=== PATIENT | female | born 1990 | race Caucasian/White ===

== ENCOUNTER 2023-01-16 18:05 | Emergency (ER) | payer OTHER, SELFPAY ==
[2023-01-16 18:13] VITALS: BP 126/84; PULSE 78; RESP 20; TEMP 37; O2SAT 98; BMI 27.4
--- NOTE | 2023-01-16 18:33 | ECG_ITS ---
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
[2023-01-16 19:09] LABS: Basophils Percent Auto 0.4 % (0.2-2.0); Eosinophils Absolute Auto 0.1 10^3/uL (0.0-0.7); Eosinophils Percent Auto 1.5 % (0.9-7.0); Hematocrit 38.7 % (36.0-48.0); Hemoglobin 13.4 g/dL (12.0-16.0); Lymphocytes Absolute Auto 4.2 10^3/uL (1.2-3.8); Lymphocytes Percent Auto 57.6 % (20.5-60.0); Mean Corpuscular HGB Conc 34.6 g/dL (29.9-35.2); Mean Corpuscular Hemoglobin 34.2 pg (26.7-34.0); Mean Corpuscular Volume 98.7 fL (81.0-99.0); Mean Platelet Volume 9.4 fL (9.5-13.5); Monocytes Absolute Auto 0.5 10^3/uL (0.3-0.8); Monocytes Percent Auto 6.9 % (1.7-12.0); Neutrophils Absolute Auto 2.4 10^3/uL (1.4-6.5); Neutrophils Percent Auto 33.6 % (43.0-75.0); Platelet Count 185 10^3/uL (150-450); Red Blood Count 3.92 10^6/uL (4.20-5.40); White Blood Count 7.2 10^3/uL (4.0-11.0)
[2023-01-16] MEDS: ONDANSETRON PF 4 MG/2 ML VIAL IV (19:15)
[2023-01-16] MEDS: DIAZEPAM 5 MG/ML - 2 ML INJ SYRINGE IV (19:15)
[2023-01-16] MEDS: MULTIVIT INFUSN,ADULT 4,VIT K 10 ML in 0.9 % SODIUM CHLORIDE 1,000 ML 125 ML IV (19:15)
[2023-01-16 19:21] LABS: Bilirubin Urine NEGATIVE (NEGATIVE); Blood Urine NEGATIVE (NEGATIVE); Clarity Urine CLEAR (CLEAR); Color Urine LT. YELLOW (YELLOW); Glucose Urine UA NEGATIVE (NEGATIVE); Ketones Urine NEGATIVE (NEGATIVE); Leukocyte Esterase Urine NEGATIVE (NEGATIVE); Nitrite Urine NEGATIVE (NEGATIVE); Protein Urine NEGATIVE (NEG/TRACE); Urobilinogen Urine 0.2 EU/dL (0.2-1.0); pH Urine 7.5 (5.0-9.0)
[2023-01-16 19:24] LABS: Urine Microscopic Indicated NO
[2023-01-16 19:32] LABS: Amphetamine Screen Urine NEGATIVE (NEGATIVE); Barbiturates Screen Urine NEGATIVE (NEGATIVE); Benzodiazepines Screen Urine POSITIVE (NEGATIVE); Buprenorphine Screen Urine POSITIVE (NEGATIVE); Cannabinoid Screen Urine NEGATIVE (NEGATIVE); Cocaine Screen Urine NEGATIVE (NEGATIVE); Methadone Screen Urine NEGATIVE (NEGATIVE); Methamphetamines Screen Urine NEGATIVE (NEGATIVE); Opiate Screen Urine NEGATIVE (NEGATIVE); Oxycodone Screen Urine NEGATIVE (NEGATIVE); Phencyclidine Screen Urine NEGATIVE (NEGATIVE); Tricyclic Antidepressant Urine NEGATIVE (NEGATIVE)
[2023-01-16 19:34] LABS: Alanine Aminotransferase 134 U/L (14-59); Albumin Globulin Ratio 0.9; Albumin Level 3.5 g/dL (3.4-5.0); Alkaline Phosphatase 95 U/L (46-116); Anion Gap 12.2; Aspartate Amino Transferase 180 U/L (15-37); BUN Creatinine Ratio 14.8; Bilirubin Total 0.2 mg/dL (0.2-1.0); Calcium 8.3 mg/dL (8.5-10.1); Carbon Dioxide 28.8 mmol/L (21.0-32.0); Chloride 103 mmol/L (98-107); Estimated GFR (African America >60 (>=60); Estimated GFR (Non-African Ame >60 (>=60); Ethanol 325 mg/dL; Globulin 4.1 g/dL; Glucose 88 mg/dL (74-106); Magnesium 2.1 mg/dL (1.8-2.4); Sodium 140 mmol/L (136-145); Total Protein 7.6 g/dL (6.4-8.2)
[2023-01-16 19:40] LABS: Prothrombin Time 11.6 sec (9.0-11.6)
[2023-01-16 19:53] LABS: HCG Qualitative Urine* NEGATIVE (NEGATIVE)
--- NOTE | 2023-01-16 20:01 | ED_ITS ---
HPI - Medical Clearance General Chief complaint: Medical Clearance Stated complaint: mental health Time Seen by Provider: 01/16/23 18:30 Source: patient Mode of arrival: walk-in Limitations: no limitations History of Present Illness HPI Narrative: Patient is a 33-year-old female who presents to the emergency department for the evaluation of alcohol abuse, she states she is seeking inpatient treatment. She states she has been having intermittent withdrawal symptoms over the last several weeks, she was recently seen at multiple other facilities for this. She reports feeling anxious, she has occasional visual hallucinations which she has had with previous alcohol withdrawal in the past. She states she drinks a gallon of vodka a day. Apparently her has recently left her which is contributed to her binge drinking. She has no other focal medical complaints at this time, no concern for . Related Information Allergies Allergy/AdvReac Type Severity Reaction Status Date / Time codeine Allergy Severe Verified 01/16/23 18:22 hydroxyzine [From Vistaril] AdvReac Severe Verified 01/16/23 18:22 Review of Systems ROS Constitutional Denies: fever or chills Ears, nose, mouth, and throat Denies: throat pain Cardiovascular Denies: chest pain Respiratory Denies: shortness of breath Gastrointestinal Reports: nausea and vomiting Musculoskeletal Denies: back pain Integumentary/Breast Denies: rash Psychiatric Reports: anxiety Exam Narrative Exam Narrative: Gen.: Awake, alert, in no distress; calm, cooperative Head: Normocephalic, atraumatic ENT: Moist mucous membranes Respiratory: No respiratory distress, lungs clear bilaterally Cardio: Regular rate and rhythm Gastrointestinal: Abdomen is soft, nondistended and nontender to palpation Extremities: Moves extremities equally, no injuries noted Psych: Normal mood and affect; denies suicidal or homicidal ideation Neuro: No focal neuro deficit Skin: Warm, dry, intact Constitutional Vital Signs, click to edit/add: Last Vital Signs Temp 98.6 F 01/16/23 18:13 Pulse 78 01/16/23 18:13 Resp 20 01/16/23 18:13 BP 126/84 01/16/23 18:13 Pulse Ox 98 01/16/23 18:13 Course Vital Signs Vital signs: Vital Signs Temperature 98.6 F 01/16/23 18:13 Pulse Rate 78 01/16/23 18:13 Respiratory Rate 20 01/16/23 18:13 Blood Pressure 126/84 01/16/23 18:13 Pulse Oximetry 98 01/16/23 18:13 Temperature 98.6 F 01/16/23 18:13 Pulse Rate 78 01/16/23 18:13 Respiratory Rate 20 01/16/23 18:13 Blood Pressure 126/84 01/16/23 18:13 Pulse Oximetry 98 01/16/23 18:13 MDM - Medical Clearance MDM Narrative Medical decision making narrative: Patient is calm and cooperative in the ER, I discussed the case with [facility]'s counseling and patient is not a candidate for direct transfer to an inpatient alcohol facility until she is more sober. Her alcohol level is 325. The remainder of her labs are unremarkable. She was given a banana bag, IV Valium and Zofran. Vital signs were unremarkable in the ER. On discussion of medical admission for the patient, her family member came to the emergency room and the patient states she is ready to leave. Her family member is sober and will drive her home and stay with her. She states she does not feel she needs to be admitted and would like to just go home and sleep. She is awake, alert and appropriate on reevaluation, she has no suicidal or homicidal ideation. Her sober family member will except responsibility for driving her home. She was given counseling resources for follow-up and should return to the ER if symptoms change or worsen. Medical Records Attestation: I reviewed the patient's medical records. Lab Data Attestation: I reviewed the patient's lab results. Labs: Lab Results 01/16/23 01/16/23 Range/Units 19:01 19:11 WBC 7.2 (4.0-11.0) 10^3/uL RBC 3.92 L (4.20-5.40) 10^6/uL Hgb 13.4 (12.0-16.0) g/dL Hct 38.7 (36.0-48.0) % MCV 98.7 (81.0-99.0) fL MCH 34.2 H (26.7-34.0) pg MCHC 34.6 (29.9-35.2) g/dL RDW 12.0 (11.0-15.0) % Plt Count 185 (150-450) 10^3/uL MPV 9.4 L (9.5-13.5) fL Neut % (Auto) 33.6 L (43.0-75.0) % Lymph % (Auto) 57.6 (20.5-60.0) % [place] % (Auto) 6.9 (1.7-12.0) % Eos % (Auto) 1.5 (0.9-7.0) % Baso % (Auto) 0.4 (0.2-2.0) % Neut # (Auto) 2.4 (1.4-6.5) 10^3/uL Lymph # (Auto) 4.2 H (1.2-3.8) 10^3/uL [place] # (Auto) 0.5 (0.3-0.8) 10^3/uL Eos # (Auto) 0.1 (0.0-0.7) 10^3/uL Baso # (Auto) 0.0 (0.0-0.1) 10^3/uL Abs Immat Gran (auto) 0.00 (0.00-0.03) 10^3/uL Imm/Tot Granulo (auto) 0.0 (0.0-0.5) % PT 11.6 (9.0-11.6) sec INR 1.10 Sodium 140 (136-145) mmol/L Potassium 4.0 (3.5-5.1) mmol/L Chloride 103 (98-107) mmol/L Carbon Dioxide 28.8 (21.0-32.0) mmol/L Anion Gap 12.2 BUN 9.0 (7.0-18.0) mg/dL Creatinine 0.61 (0.55-1.02) mg/dL Est GFR ( Amer) >60 (>=60) Est GFR (Non-Af Amer) >60 (>=60) BUN/Creatinine Ratio 14.8 Glucose 88 (74-106) mg/dL Calcium 8.3 L (8.5-10.1) mg/dL Magnesium 2.1 (1.8-2.4) mg/dL Total Bilirubin 0.2 (0.2-1.0) mg/dL AST 180 H (15-37) U/L ALT 134 H (14-59) U/L Alkaline Phosphatase 95 (46-116) U/L Total Protein 7.6 (6.4-8.2) g/dL Albumin 3.5 (3.4-5.0) g/dL Globulin 4.1 g/dL Albumin/Globulin Ratio 0.9 Lipase 81.0 H (16.0-77.0) U/L Urine Color Lt. yellow (YELLOW) Urine Clarity Clear (CLEAR) Urine pH 7.5 (5.0-9.0) Ur Specific [place] 1.010 (1.005-1.025) Urine Protein Negative (NEG/TRACE) mg/dL Urine Glucose (UA) Negative (NEGATIVE) mg/dL Urine Ketones Negative (NEGATIVE) mg/dL Urine Occult Blood Negative (NEGATIVE) Urine Nitrite Negative (NEGATIVE) Urine Bilirubin Negative (NEGATIVE) Urine Urobilinogen 0.2 (0.2-1.0) EU/dL Ur Leukocyte Esterase Negative (NEGATIVE) Urine HCG, Qual Negative (NEGATIVE) Urine Opiates Screen Negative (NEGATIVE) Ur Buprenorphine Scrn Positive A (NEGATIVE) Ur Oxycodone Screen Negative (NEGATIVE) Urine Methadone Screen Negative (NEGATIVE) Ur Barbiturates Screen Negative (NEGATIVE) U Tricyclic Antidepress Negative (NEGATIVE) Ur Phencyclidine Scrn Negative (NEGATIVE) Ur Amphetamines Screen Negative (NEGATIVE) U Methamphetamines Scrn Negative (NEGATIVE) U Benzodiazepines Scrn Positive A (NEGATIVE) Urine Cocaine Screen Negative (NEGATIVE) U Cannabinoids Screen Negative (NEGATIVE) Ethanol Quant 325 mg/dL ECG Data Attestation: I personally reviewed and interpreted this ECG as follows: (Normal sinus rhythm at a rate of 68, no acute ST elevation or ectopy. EKG reviewed by attending physician) Discharge Plan Discharge Chief Complaint: Medical Clearance Clinical Impression: Alcohol intoxication Patient Disposition: Home, Self-Care Time of Disposition Decision: 20:29 Condition: Good Instructions: Abuse of Alcohol (ED) Stand Alone Forms: Portal Instructions [facility] week Physician,Non-Staff, [Primary Care Provider] - 1 week Discharge Date/Time: 01/16/23 20:59
== END 2023-01-16 20:59 | disposition home or self-care (01) ==
PROVIDERS: Physician Assistant; Emergency Provider Emergency Medicine
DX: F10.129 Alcohol abuse with intoxication, unspecified (principal); Y90.8 Blood alcohol level of 240 mg/100 ml or more
CPT/HCPCS: 36415; 80053; 80307; 80320; 81003; 83690; 83735; 84703; 85025; 85610; 93005; 96374; 96375; 99284

== ENCOUNTER 2023-03-05 03:39 | Emergency (ER) | payer OTHER, SELFPAY ==
[2023-03-05 03:42] VITALS: BP 137/82; PULSE 79; RESP 22; TEMP 36.4; O2SAT 99; BMI 28.3
--- OUTSIDE RECORDS SUMMARY | 2023-03-05 03:53 | XMS_ITS | CCD ---
Author Name Unknown Address [address] [place] [address] Organization [facility] Care Team Providers Care Special Projects Manager Name Role Phone JENNY ELVIS Primary Care Unavailable GhjeffarianElvis Primary Care Provider Wolf, Nini Unavailable Unavailable Tavallwaltere Chintan Unavailable Unavailable Wolf, Nini D Unavailable Unavailable Ghazarian Elvis V Unavailable Unavailable Wolf, Nini Unavailable Unavailable Wolf, Nini D Unavailable Unavailable Wolf, Nini Primary Care Provider WOLF, NINI Primary Care Unavailable CRESCENCIO EMANUEL Attending Unavailable Wolf, Nini D Unavailable Unavailable Unavailable Ghtrista Elvis V Unavailable [phone] Wolf, Nini Unavailable Chilo Glover Unavailable Unavailable WOLF, NINI Primary Care Unavailable HERMINIA MCCARTHY Attending Unavailable HERMINIA MCCARTHY Attending Unavailable WOLF, NINI Primary Care Unavailable Misa SINGLETARY, Jeffery Smith Attending Unavailable Jeffery Bynum MD Admitting Unavailable Unavailable Primary Care Provider UnavailZIARE Hay Attending Unavailable MARIA E BLANCAS Referring Unavailable Amanda BARRIOS Primary Care Physician [phone] Michelle Ferrera Unavailable Unavailable REQUEST, NONE LISTED Primary Care Unavaila STEPHENIE Pete Admitting Unavailable STEPHENIE FERNANDEZ Attending Unavailable STEPHENIE FERNANDEZ Consulting Unavailable REQUEST, NONE LISTED Primary Care Unavaila ivy DOOLEY, DR ELIDA Soliman Admitting Unavailable MARCO, DR ELIDA Soliman Attending Unavailable DR ELIDA DOOLEY Consulting Unavailable LOGAN Barrios Primary Care Provider DO Gunnar Moya Emergency Provider [phone] MD Declan Marina Emergency Provider DO Ari Aguero Emergency Provider [phone] Unavailable Primary Care Provider UnavailPHU Ornelas Attending Unavailable DECLAN GOEL Attending Unavailable JOEL ALVES Attending Unavailable MD Eric Dooley Emergency Provider [phone] TAHIR Schmitt Emergency Provider DO Pavel Yao A Emergency Provider LOGAN Barrios Primary Care Provider [phone] DO Gunnar Moya Emergency Provider MD Declan Marina Emergency Provider DO Ari Aguero Emergency Provider MD Eric Dooley Emergency Provider TAHIR Schmitt Emergency Provider DO Pavel Yao A Emergency Provider MD Kanchan Sanchez Attending Provider [phone] Kanchan Sanchez Unavailable LOGAN Barrios Primary Care Provider [phone] DO Ari Aguero Emergency Provider MD Nguyễn Burrows Admit Provider MD Nguyễn Burrows Attending Provider Freda Clarke Unavailable Unavailable LOGAN Barrios Primary Care Provider DO Ari Aguero Emergency Provider MD Declan Marina Emergency Provider LOGAN Barrios Primary Care Provider [phone] MD Kanchan Sanchez Attending Provider Diamante Cleveland Primary Care Physician Birgit COOPER Unavailable LOGAN Barrios Primary Care Provider DO Ari Aguero Emergency Provider Nini Miles Primary Care Provider [phone] LOGAN Barrios Primary Care Provider MD Kanchan Sanchez Attending Provider DO Ari Aguero Emergency Provider [phone] Diamante Cleveland Primary Care Provider TAHIR Schmitt Emergency Provider NINI MCCOLLUM Primary Care Unavailable ROSA ELENA HOWE Attending Unavailabl e LOGAN Barrios Primary Care Provider DO Pavel Yao Emergency Provider MD Samanta Castro Jr Emergency Provider Amanda Barrios Primary Care Unavailable Gautam Burrows Attending Unavailab Gautam Banda Admitting Unavailab Gautam Banda Admitting Unavailab Gautam Banda Attending Unavailab Diamante De León Primary Care Unavailable Ignacio Clevelandca Yung Primary Care Unavailable Braeden Schmitt Admitting Unavailable Braeden Schmitt Attending Unavailable Antwonjulio, Amanda Primary Care Unavailable Ari Aguero Admitting Unavailable Ari Aguero Attending Unavailable Robuck, Amanda Primary Care Unavailable Eric Dooley Attending Unavailable Eric Dooley Admitting Unavailable Braeden Schmitt Attending Unavailable Robjulio, Amanda Primary Care Unavailable Braeden Schmitt Admitting Unavailable Robuck, Amanda Primary Care Unavailable Pavel Yao Attending Unavailable Pavel Yao A Admitting Unavailable Robuck, Amanda Primary Care Unavailable Ari Aguero Attending Unavailable Ari Aguero Admitting Unavailable Declan Marina Admitting Unavailable Declan Marina Attending Unavailable Robuck, Amanda Primary Care Unavailable Robuck, Amanda Primary Care Unavailable Ari Aguero Attending Unavailable Ari Aguero Admitting Unavailable Robuck, Amanda Primary Care Unavailable KePavel phan A Admitting Unavailable KeisterPavel Attending Unavailable Declan Marina Attending Unavailable Robuck, Amanda Primary Care Unavailable Declan Marina Admitting Unavailable Robuck, Amanda Primary Care Unavailable Gunnar Moya Attending Unavailable Gunnar Moya Admitting Unavailable Robjulio, Amanda Primary Care Unavailable Samanta Castro Jr Attending Unavailable Samanta Castro Jr Admitting Unavailable Robuck, Amanda Primary Care Unavailable Ari Aguero Attending Unavailable Ari Aguero Admitting Unavailable Robuck, Amanda Primary Care Unavailable Eric Dooley Admitting Unavailable Eric Dooley Attending Unavailable Asaad, Imad Attending Unavailable Robuck, Amanda Primary Care Unavailable Asaad, Imad Admitting Unavailable Robuck, Amanda Primary Care Unavailable Asaad, Imad Admitting Unavailable Asaad, Imad Attending Unavailable Gunnar HOGAN Admitting Unavailable Endy Raphael Attending Unavailable [place], Francisco Consulting Unavailable [place], Francisco Consulting Unavailable [place], Francisco Consulting Unavailable [place], Francisco Consulting Unavailable [place], Francisco Consulting Unavailable [place], Francisco Consulting Unavailable [place], Francisco Consulting Unavailable [place], Francisco Consulting Unavailable [place], Francisco Consulting Unavailable Gunnar HOGAN Admitting Unavailable Kam Rizzo Attending Unavailable [place], Francisco Consulting Unavailable [place], Francisco Consulting Unavailable [place], Francisco Consulting Unavailable [place], Francisco Consulting Unavailable [place], Francisco Consulting Unavailable [place], Francisco Consulting Unavailable [place], Francisco Consulting Unavailable [place], Francisco Consulting Unavailable [place], Francisco Consulting Unavailable Isai Hall Attending Unavailable Eric Forbes Attending Unavailable Darren Guzman Attending Unavailable Megan, Darren SCharisma Attending Unavailable FABIENNE COOPER Attending Unavaila FABIENNE Craft Admitting Unavaila FREDDY Simmons Attending Unavailable JOANA, FREDDY Lange Attending Unavailable ROBJULIO, FREDDY Lange Attending Unavailable JOANA, FREDDY Lange Attending Unavailable JOANA, FREDDY Lange Attending Unavailable JOANA, FREDDY Lange Attending Unavailable Isai Hall Attending Unavailable Gladys Saini Attending Unavailable CARRIE PEREZ Attending Unavailable Lorie Morocho Attending Unavailable Megan, Darren SCharisma Attending Unavailable FREDDY BARRIOS Attending Unavailable JOANA, FREDDY Lange Attending Unavailable JOANA, FREDDY Lange Attending Unavailable Stanislav FRAIRE Attending Unavailable Eric Forbes Attending Unavailable JEF HEADLEY Attending Unavailable JEF HEADLEY Admitting Unavailable FRANTZ SIMMONS Attending Unavailable FRANTZ SIMMONS Admitting Unavailable Bailee, Lorie Admitting Unavailable Bailee, Lorie Attending Unavailable CARRIE PEREZ Attending Unavailable CARRIE PEREZ Admitting Unavailable Griffin Gunnar Underwood Emergency Provider [phone] Allergies Allergy Classification Reported Allergen(s) Allergy Type Date of Onset Reaction(s) Facility Opioid Agonists (2 sources) Codeine; Translations: [codeine] Drug Allergy Rash, Tachycardia [facility] [address] [facility] Work Phone: QUEtiapine (1 source) QUEtiapine; Translations: [SEROquel TABS] Drug Allergy Swelling [facility] [address] [facility] Work Phone: (9 sources) Bisacodyl Drug Allergy 7 Other (See Comments) [place], [place] (20 sources) Codeine; Translations: [codeine] Drug Allergy 7 Hives, Palpitations, Rash, Tachycardia, Red color (finding) [place], [place] (20 sources) QUEtiapine; Translations: [quetiapine] Drug Allergy 1 [facility] Work Phone: (1 source) Codeine Drug Allergy 7 [facility] (1 source) Docusate Drug Allergy 7 [facility] (2 sources) QUEtiapine; Translations: [SEROquel] Drug Allergy [facility] (19 sources) QUEtiapine; Translations: [quetiapine] Drug Allergy 3 Swelling [facility] (7 sources) hydrOXYzine; Translations: [hydroxyzine] Drug Allergy 3 Palpitations, Anxiety [facility] (1 source) Codeine Drug Allergy 3 [facility] (1 source) hydrOXYzine Drug Allergy 3 [facility] (1 source) Docusate; Translations: [Colace] Drug Allergy [facility] Repository Medications Current Medications Medication Drug Class(es) Dates Sig (Normalized) Sig (Original) acetaminophen 325 mg oral tablet (2 sources) Start: 2023 take 2 tablets by mouth every six hours as needed for pain acetaminophen 325 mg Tab 650 mg = 2 tab(s), Oral, q6hr, PRN Pain, Refills(s) 0 Start Date: 01/05/23 Status: Ordered azithromycin 500 mg oral tablet (4 sources) Macrolide Antimicrobial Start: 11-30-2022 take 2 tablets by mouth once Zithromax 500 mg oral tablet 1,000 mg = 2 tab(s), Oral, Once, # 2 tab(s), Refills(s) 0, Pharmacy: [facility], 157, cm, 11/30/22 13:33:00 EDT, Height/Length Dosing, 73, kg, 11/30/22 13:33:00 EDT, Weight Dosing Start Date: 11/30/22 Status: Ordered cariprazine 1.5 mg oral capsule (6 sources) Atypical Antipsychotic Start: 12-15-2022 cariprazine (Vraylar) capsule 1.5 mg Start: 03-28-2022 take 1 capsule by mo [facility] once daily Vraylar 1.5 mg oral capsule 1.5 mg = 1 cap(s), Oral, Daily, # 30 cap(s), Refills(s) 0, Pharmacy: [facility] #[id number], 157.5, cm, 03/28/22 13:50:00 EST, Height/Length Dosing, 79.1, kg, 03/28/22 13:50:00 EST, Weight Dosing Start Date: 03/28/22 Status: Ordered Start: 07-04-2021 take 1 capsule by mo [facility] once daily Vraylar 1.5 mg oral capsule 1.5 mg = 1 cap(s), Oral, Daily, # 30 cap(s), Refills(s) 0, Pharmacy: [facility], 157, cm, 07/04/21 15:06:00 EDT, Height/Length Dosing, 84.8, kg, 07/04/21 15:10:00 EDT, Weight Dosing Start Date: 07/04/21 Status: Ordered cephalexin 500 mg oral capsule (20 sources) Cephalosporin Antibacterial Start: 10-02-2021 End: 10-09-2021 take 1 capsule by mouth every eight hours cephalexin 500 mg Cap 500 mg = 1 cap(s), Oral, q8hr, X 7 day(s), # 21 cap(s), Refills(s) 0, Pharmacy: [facility] #[id number], 157, cm, 09/19/21 10:21:00 EDT, Height/Length Dosing, 86, kg, 09/19/21 10:21:00 EDT, Weight Dosing Start Date: 10/02/21 Stop Date: 10/09/21 Status: Ordered Start: 04-10-2021 End: 04-19-2021 take 500 mg by mouth every six hours Cephalexin Discontinued 500 MG PO Q6H 28 April 10, 2021 12:00am April 19, 2021 10:28am Start: 08-08-2018 End: 04-13-2020 take 1 capsule by mouth three times daily Cephalexin (Keflex) 500 mg Capsule Discontinued 500 MG PO Three times daily August 07, 2018 11:00pm April 13, 2020 1:22pm chlordiazePOXIDE hydrochloride 25 mg oral capsule (1 source) Benzodiazepine Start: 12-12-2022 chlordiazePOXI DE (Librium) 25 mg capsule Take 2 capsules by mouth every 6 hours for 6 doses, then 1 capsule every 6 hours for 4 doses, then 1 capsule every 8 hours for 3 doses, then 1 capsule every 12 hours for 2 doses, then 1 capsule after 25 hours 22 capsule 0 12/12/2022 Active clonazePAM 0.5 mg oral tablet (5 sources) Benzodiazepine Start: 10-15-2019 clonazePAM (KL ONOPIN) 0.5 MG tablet Take 0.5 mg by mouth as needed. 0 10/15/2019 Active Start: 10-15-2019 take 1 tablet by man th every twelve hours as needed clonazePAM 0.5 MG Oral Tablet TAKE 1 TABLET EVERY 12 HOURS NEEDED. Quantity: 60 Refills: 0 Nini Rojas Start : 15-Oct-2019 Active take 1 tablet by man th three times daily as needed KlonoPIN 0.5 mg oral tablet ; 1 tab(s) orally 3 times a day, As Needed Quantity: 0 Refills: 0 Ordered: 27-Jan-2020 Edwin Lujan Status: Other Generic Substitution Allowed cloNIDine hydrochloride 0.1 mg oral tablet (20 sources) Central alpha-2 Adrenergic Agonist Start: 08-16-2022 take 1 tablet by mouth twice daily cloNIDine 0.1 mg tab 0.1 mg = 1 tab(s), Oral, BID, # 60 tab(s), Refills(s) 11, Pharmacy: [id number], 157, cm, 08/15/22 13:49:00 EDT, Height/Length Dosing, 72.9, kg, 08/15/22 13:49:00 EDT, Weight Dosing Start Date: 08/16/22 Status: Ordered Start: 06-07-2022 take 0.1 mg by mouth once daily Clonidine Hcl Active 0.1 MG PO Daily June 06, 2022 11:00pm Start: 04-16-2021 End: 08-13-2021 take 0.1 mg by mouth twice daily Clonidine Hcl Discontinued 0.1 MG PO Twice daily 60 April 19, 2021 12:03pm August 13, 2021 1:02pm doxepin 3 mg oral tablet (2 sources) Tricyclic Antidepressant Start: 09-19-2021 take 2 tablets by mouth once daily at bedtime doxepin 3 mg oral tablet 6 mg = 2 tab(s), Oral, Once a day (at bedtime), # 60 tab(s), Refills(s) 0, Pharmacy: [facility] #[id number], 157, cm, 09/19/21 10:21:00 EDT, Height/Length Dosing, 86, kg, 09/19/21 10:21:00 EDT, Weight Dosing Start Date: 09/19/21 Status: Ordered folic acid 1 mg oral tablet (20 sources) Start: 2023 take 1 tablet by mouth once daily folic acid 1 mg Tab 1 mg = 1 tab(s), Oral, Daily, Refills(s) 0 Start Date: 01/05/23 Status: Ordered Start: 12-15-2022 folic acid (Fo lvite) tablet 1 mg Start: 06-08-2020 End: 09-21-2020 take 1 mg by mouth once daily Folic Acid Discontinued 1 MG PO Daily June 07, 2020 11:00pm September 21, 2020 9:18am gabapentin 800 mg oral tablet (20 sources) Anti-epileptic Agent Start: 12-16-2022 gabapenti n (Neurontin) capsule 800 mg Start: 08-28-2021 take 800 mg by mouth three times daily Gabapentin Active 800 MG PO Three times daily August 27, 2021 11:00pm Start: 04-16-2021 End: 08-13-2021 take 800 mg by mouth three times daily Gabapentin Discontinued 800 MG PO Three times daily April 19, 2021 12:03pm August 13, 2021 1:02pm Start: 09-21-2020 End: 04-16-2021 take 800 mg by mouth three times daily Gabapentin Discontinued 800 MG PO Three times daily September 21, 2020 9:30am April 16, 2021 10:46am Start: 06-08-2020 End: 09-21-2020 take 400 mg by mouth twice daily Gabapentin Discontinu ed 400 MG PO Twice daily June 08, 2020 9:26am September 21, 2020 9:17am Start: 06-07-2020 End: 06-08-2020 take 400 mg by mouth four times daily Gabapentin Discontinued 400 MG PO Four times daily June 06, 2020 11:00pm June 08, 2020 9:27am Start: 06-05-2020 End: 06-07-2020 take 400 mg by mouth once daily Gabapentin Discontinue d 400 MG PO Daily June 04, 2020 11:00pm June 07, 2020 5:42am Start: 04-13-2020 End: 05-26-2020 take 400 mg by mouth four times daily Gabapentin Discontinued 400 MG PO Four times daily April 13, 2020 12:00am May 26, 2020 10:11am Start: 11-24-2018 End: 12-24-2018 take 1 capsule by mouth three times daily gabapentin (NEURONTIN) 400 MG capsule Indications: Restless leg syndrome Take 1 capsule by mouth 3 times daily for 30 days. 90 capsule 1 11/24/2018 Active Start: 10-23-2018 End: 11-22-2018 take 1 capsule by mouth three times daily gabapentin (NEURONTIN) 400 MG capsule Indications: Restless leg syndrome Take 1 capsule by mouth 3 times daily for 30 days. 90 capsule 1 10/23/2018 11/22/2018 Active Start: 08-07-2018 End: 05-30-2020 take 600 mg by mouth three times daily Gabapentin Discontinued 600 MG PO Three times daily August 06, 2018 11:00pm May 30, 2020 10:42am take 1 tablet by man every twenty-four hours Gabapentin 800 MG 1 tablet Orally Once a day Active take 2 capsules by m outh four times daily gabapentin (NEURONTIN) 400 MG capsule Take 800 mg by mouth 4 times daily. 0 Active hydrOXYzine hydrochloride 50 mg oral tablet (20 sources) Antihistamine Start: 12-12-2022 take 1 tablet by mouth every eight hours as needed hydrOXYzine HCL (Atarax) 50 mg tablet Take 1 tablet (50 mg) by mouth every 8 hours if needed. 30 tablet 0 12/12/2022 Active Start: 11-04-2022 take 1-2 capsules by mouth four times daily as needed for anxiety Vistaril 25 mg Cap 1-2 cap(s), Oral, QID, PRN as needed for anxiety, # 30 cap(s), Refills(s) 0, Pharmacy: [id number], 158, cm, 11/04/22 12:27:00 EDT, Height/Length Dosing, 74.7, kg, 11/04/22 12:27:00 EDT, Weight Dosing Start Date: 11/04/22 Status: Ordered Start: 09-06-2022 take 50 mg by mouth twice heike y Hydroxyzine Hcl Active 50 MG PO Twice daily September 05, 2022 11:00pm Start: 09-06-2022 End: 09-06-2022 Hydroxyzine Hcl Discontinued MG TABLET September 05, 2022 11:00pm September 06, 2022 10:48am Start: 08-13-2022 take 1 tablet by man four times daily as needed for anxiety hydrOXYzine hydrochloride 50 mg oral tablet 50 mg = 1 tab(s), Oral, QID, PRN for anxiety, # 40 tab(s), Refills(s) 0, Pharmacy: [facility], 157.5, cm, 08/13/22 13:00:00 EDT, Height/Length Dosing, 72.9, kg, 08/13/22 13:00:00 EDT, Weight Dosing Start Date: 08/13/22 Status: Ordered Start: 03-09-2022 End: 06-07-2022 take 1 capsule by mouth every eight hours Hydroxyzine Pamoate (Vistaril) 50 mg capsule Discontinued 50 MG PO Q8H 7 March 09, 2022 12:00am June 07, 2022 3:39pm Start: 05-03-2021 End: 05-03-2021 hydrOXYzine (VISTARIL) injec tion 50 mg take 1 capsule by mo uth four times daily as needed Vistaril 50 mg oral capsule ; 1 cap(s) orally 4 times a day, As Needed Quantity: 0 Refills: 0 Ordered: 04-Apr-2020 Edwin Lujan Status: Other Generic Substitution Allowed LORazepam 1 mg oral tablet (20 sources) Benzodiazepine Start: 12-16-2022 LORazepam (Ati van) tablet 1 mg Start: 12-15-2022 LORazepam (Ati van) tablet 2 mg Start: 12-12-2022 take 1 tablet by man th every four hours as needed LORazepam (Ativan) 2 mg tablet Take 1 tablet (2 mg) by mouth every 4 hours if needed. 20 tablet 0 12/12/2022 Active Start: 12-10-2022 End: 12-14-2022 take 1 tablet by mouth every eight hours as needed, then take 1 tablet by mouth every eight hours as needed Ativan 1 mg Tab 1 mg = 1 tab(s), Oral, q8hr, Take one by mouth every eight hours as needed, X 4 day(s), # 12 tab(s), Refills(s) 0, Pharmacy: [facility] #[id number], 157, cm, 12/10/22 8:08:00 EDT, Height/Length Dosing, 72.2, kg, 12/10/22 8:08:00 EDT, Weight Dosing Start Date: 12/10/22 Stop Date: 12/14/22 Status: Ordered Start: 05-03-2021 End: 05-03-2021 LORazepam (ATIVAN) tablet 1 mg Start: 05-02-2021 End: 05-02-2021 LORazepam (ATIVAN) injection 1 mg Start: 05-02-2021 End: 05-02-2021 LORazepam (ATIVAN) injection 1 mg Start: 04-13-2020 End: 05-26-2020 take 0.5 mg by mouth every four hours Lorazepam Discontinued 0.5 MG PO Q4H April 13, 2020 12:00am May 26, 2020 10:12am Start: 03-15-2020 take 1 tablet by man th twice daily as needed for anxiety LORazepam 0.5 MG Oral Tablet TAKE 1 TABLET Twice daily PRN anxiety Quantity: 60 Refills: 0 Nini Rojas Start : 15-Mar-2020 Active Start: 03-10-2020 End: 03-10-2020 LORazepam (ATIVAN) tablet 1 mg take 1 tablet by man th three times daily as needed Ativan 0.5 mg oral tablet ; 1 tab(s) orally 3 times a day, As Needed Quantity: 0 Refills: 0 Ordered: 04-Apr-2020 Edwin Lujan Status: Other Generic Substitution Allowed LORazepam (Ativan) injection 0.5 mg (1 source) Start: 12-14-2022 LORazepam (Ati van) injection 0.5 mg melatonin 3 mg oral tablet (1 source) Start: 12-15-2022 melatonin tabl et 3 mg methadone hydrochloride 10 mg oral tablet (19 sources) Opioid Agonist Start: 12-16-2022 methadone (Dol ophine) tablet 50 mg Start: 08-18-2022 End: 08-20-2022 methadone 10 mg Tab 105 mg = 10.5 tab(s), Oral, Daily, X 2 day(s), # 21 tab(s), Refills(s) 0, Pharmacy: [facility], 165, cm, 08/16/22 23:50:00 EDT, Height/Length Dosing, 74.8, kg, 08/16/22 23:50:00 EDT, Weight Dosing Start Date: 08/18/22 Stop Date: 08/20/22 Status: Ordered Start: 03-05-2022 take 105 mg by mouth once daily Methadone Active 105 MG PO Daily March 05, 2022 12:00am Start: 03-05-2022 take 115 mg by mouth once daily Methadone Active 115 MG PO Daily March 05, 2022 1:00am Start: 03-05-2022 take 100 mg by mouth once daily Methadone Active 100 MG PO Daily March 05, 2022 1:00am Methadone HCl Ac tive Multi For Her - (1 source) Multi For Her - as directed Orally Active multivitamin with minerals 1 tablet (1 source) Start: 12-16-19 multivitamin with minerals 1 tablet naproxen 250 mg oral tablet (3 sources) Nonsteroidal Anti-inflammatory Drug take 1 tablet by mouth twice daily as needed for pain naproxen (NAPROSYN) 250 MG tablet Take 250 mg by mouth 2 times daily as needed for Pain 0 Active nitrofurantoin, macrocrystals 25 mg / nitrofurantoin, monohydrate 75 mg oral capsule (19 sources) Nitrofuran Antibacterial Start: 09-20-19 End: 09-27-19 take 1 capsule by mouth twice daily Macrobid 100 mg Cap 100 mg = 1 cap(s), Oral, BID, X 7 day(s), # 14 cap(s), Refills(s) 0, Pharmacy: [facility] #[id number], 157, cm, 09/19/21 10:21:00 EDT, Height/Length Dosing, 86, kg, 09/19/21 10:21:00 EDT, Weight Dosing Start Date: 09/19/21 Stop Date: 09/26/21 Status: Ordered Start: 09-21-2020 End: 12-04-2020 take 1 capsule by mouth every twelve hours at mealtime Nitrofurantoin Monohyd/M-Cryst (Macrobid) 100 mg Capsule Discontinued 100 MG PO Q12H September 20, 2020 11:00pm December 04, 2020 3:06pm Administer with a meal/food: swallow whole; do not open, crush, dissolve, or chew nystatin [id number] unt/ml oral suspension (1 source) Polyene Antifungal Start: 09-22-2020 take 4 mL by mouth four times daily nystatin 100,000 units/mL oral suspension ; 4 milliliter(s) orally 4 times a day x7 days Quantity: 120 Refills: 0 Ordered: 22-Sep-2020 Chilo Glover Start: 22-Sep-2020 Generic Substitution Allowed Comments: Finish all this medication unless otherwise directed by prescriber.Shake well before use. Comment on above: Finish all this medi cation unless otherwise directed by prescriber.Shake well before use. ondansetron 4 mg oral tablet (20 sources) Serotonin-3 Receptor Antagonist Start: 2023 End: 01-10-2023 take 1 tablet by mouth every six hours as needed for nausea Zofran 4 mg Tab 4 mg = 1 tab(s), Oral, q6hr, PRN Nausea, X 5 day(s), # 20 tab(s), Refills(s) 0, Pharmacy: [id number], 155, cm, 01/05/23 1:00:00 EST, Height/Length Dosing, 73, kg, 01/05/23 1:00:00 EST, Weight Dosing Start Date: 01/05/23 Stop Date: 01/10/23 Status: Ordered Start: 12-12-2022 take 1 tablet by man th three times daily as needed ondansetron ODT (Zofran-ODT) 4 mg disintegrating tablet Take 1 tablet (4 mg) by mouth 3 times a day as needed. 8 tablet 0 12/12/2022 Active Start: 12-10-2022 take 1 tablet by man th every six hours as needed for nausea Zofran 4 mg Tab 4 mg = 1 tab(s), Oral, q6hr, PRN Nausea, Take one tab by mouth every six hours as needed for nausea, # 10 tab(s), Refills(s) 0, Pharmacy: [facility]37, 157, cm, 12/10/22 8:08:00 EDT, Height/Length Dosing, 72.2, kg, 12/10/22 8:08:00 EDT, Weight Dosing Start Date: 12/10/22 Status: Ordered Start: 06-12-2020 End: 09-21-2020 take 1 tablet by mouth every eight hours Ondansetron Hcl (Zofran) 4 mg tablet Discontinued 4 MG PO Q8H 6 2 June 11, 2020 11:00pm September 21, 2020 9:18am Start: 06-02-2020 take 1 tablet by man th three times daily as needed for nausea Ondansetron 4 MG Oral Tablet Disintegrating TAKE 1 TABLET 3 times daily PRN nausea Quantity: 30 Refills: 0 Ordered: 02-Jun-2020 Nini Rojas Start : 02-Jun-2020 Active Start: 02-23-2020 End: 02-25-2020 take 1 tablet by mouth every six hours ondansetron 4 mg oral tablet, disintegrating ; 1 tab(s) orally every 6 hours Quantity: 12 Refills: 0 Ordered: 23-Feb-2020 Leann Hall Start: 23-Feb-2020 End: 25-Feb-2020 Status: Other Generic Substitution Allowed oxybutynin chloride 5 mg oral tablet (1 source) Cholinergic Muscarinic Antagonist Start: 08-13-2022 take 1 tablet by mouth twice daily as needed oxybutynin 5 mg Tab 5 mg = 1 tab(s), Oral, BID, PRN for urinary discomfort, # 60 tab(s), Refills(s) 1, Pharmacy: [facility] #37, 157.5, cm, 08/13/22 13:00:00 EDT, Height/Length Dosing, 72.9, kg, 08/13/22 13:00:00 EDT, Weight Dosing Start Date: 08/13/22 Status: Ordered 24 hr paliperidone 3 mg extended release oral tablet (3 sources) Atypical Antipsychotic Start: 01-02-2023 take 1 tablet by mouth at bedtime Invega 3 mg oral tablet, extended release 3 mg = 1 tab(s), Oral, Bedtime, # 30 tab(s), Refills(s) 0 Start Date: 01/02/23 Status: Ordered polyethylene glycol 3350 30285 mg powder for oral solution (1 source) Osmotic Laxative Start: 07-26-2021 End: 08-09-2021 take 17 g by mouth once daily MiraLax 3350 Oral Pwdr for Recon 249 gram 17 gm, Oral, Daily, X 14 day(s), # 255 gm, Refills(s) 0, Pharmacy: [facility], 157, cm, 07/04/21 15:06:00 EDT, Height/Length Dosing, 84, kg, 07/26/21 18:15:00 EDT, Weight Dosing Start Date: 07/26/21 Stop Date: 08/09/21 Status: Ordered predniSONE 20 mg oral tablet (20 sources) Start: 08-28-2022 End: 09-02-2022 take 2 tablets by mouth once daily predniSONE 20 mg Tab 40 mg = 2 tab(s), Oral, Daily, X 5 day(s), # 10 tab(s), Refills(s) 0, Pharmacy: [facility] #[id number], 165, cm, 08/28/22 9:51:00 EDT, Height/Length Dosing, 73, kg, 08/28/22 9:51:00 EDT, Weight Dosing Start Date: 08/28/22 Stop Date: 09/02/22 Status: Ordered Start: 03-19-2022 End: 04-01-2022 take 60 mg by mouth once daily at mealtime Prednisone Discontinued 60 MG PO Daily March 19, 2022 12:00am April 01, 2022 6:13pm administer with food or milk Start: 06-08-2020 End: 09-21-2020 take 20 mg by mouth once daily Prednisone Discontinued 20 MG PO Daily June 07, 2020 11:00pm September 21, 2020 9:18am Propranolol (20 sources) beta-Adrenergic Jus Start: 01-02-2023 propra nolol 40 mg, BID, Refills(s) 0 Start Date: 01/02/23 Status: Ordered Start: 04-13-2020 End: 05-30-2020 take 40 mg by mouth twice daily Propranolol Discontinu ed 40 MG PO Twice daily April 13, 2020 12:00am May 30, 2020 10:42am propranolol ; or ally once a day Quantity: 0 Refills: 0 Ordered: 04-Apr-2020 Edwin Lujan Status: Other Generic Substitution Allowed take 1 tablet by man th twice daily Propranolol HCl - 40 MG Oral Tablet Take 1 tablet twice daily Quantity: 60 Refills: 11 Ordered: 02-Jun-2020 DO Active rivaroxaban 15 mg oral tablet (2 sources) Factor Xa Inhibitor Start: 11-01-2018 rivaroxaban (XARELTO) tablet 15 mg sertraline 50 mg oral tablet (20 sources) Serotonin Reuptake Inhibitor Start: 03-10-2020 take 1 tablet by mouth once daily sertraline (ZOLOFT) 50 MG tablet Take 1 tablet by mouth daily 30 tablet 0 03/10/2020 Active Start: 01-25-2017 End: 04-13-2020 take 1 tablet by mouth once daily Sertraline (Zoloft) 100 mg Tablet Discontinued 100 MG PO Daily January 25, 2017 12:00am March 3rd, 2021 1:22pm Therapeutic Multiple Vitamin Tab (2 sources) Start: 2023 Therapeutic Mu ltiple Vitamin Tab Oral, Daily, Refill(s) 0 Start Date: 01/05/23 Status: Ordered thiamine 100 mg oral tablet (20 sources) Start: 2023 take 1 tablet by mouth once daily thiamine 100 mg Tab 100 mg = 1 tab(s), Oral, Daily, Refills(s) 0 Start Date: 01/05/23 Status: Ordered Start: 06-08-2020 End: 12-04-2020 take 100 mg by mouth once daily Thiamine Hcl (Vitamin B1) Discontinued 100 MG PO Daily June 07, 2020 11:00pm December 04, 2020 3:06pm traZODone hydrochloride 50 mg oral tablet (20 sources) Serotonin Reuptake Inhibitor Start: 12-12-2022 traZODone (Desyrel) 50 mg tablet Take 1 tablet (50 mg) by mouth as needed at bedtime. 10 tablet 0 12/12/2022 Active Start: 01-02-2022 take 1 tablet by man th once daily at bedtime traZODONE 100 mg Tab 100 mg = 1 tab(s), Oral, Once a day (at bedtime), # 30 tab(s), Refills(s) 5, [facility]: [id number], 157.5, cm, 10/06/21 16:25:00 EDT, Height/Length Dosing, 83.1, kg, 10/06/21 16:25:00 EDT, Weight Dosing Start Date: 01/02/22 Status: Ordered Start: 07-04-2021 take 1 tablet by man th once daily at bedtime traZODONE 100 mg Tab 100 mg = 1 tab(s), Oral, Once a day (at bedtime), # 90 tab(s), Refills(s) 0, Pharmacy: [facility] #[id number], 157, cm, 07/04/21 15:06:00 EDT, Height/Length Dosing, 84.8, kg, 07/04/21 15:10:00 EDT, Weight Dosing Start Date: 07/04/21 Status: Ordered Start: 04-16-2021 End: 08-13-2021 take 150 mg by mouth once daily at bedtime Trazodone Discontinued 150 MG PO Daily at bedtime April 19, 2021 12:03pm August 13, 2021 1:02pm 24 hr venlafaxine 150 mg extended release oral capsule (20 sources) Serotonin and Norepinephrine Reuptake Inhibitor Start: 08-25-2021 take 1 capsule by mouth once daily Effexor XR 150 mg Cap-ER 150 mg = 1 cap(s), Oral, Daily, # 30 cap(s), Refills(s) 0, Pharmacy: [facility], 157, cm, 07/04/21 15:06:00 EDT, Height/Length Dosing, 84, kg, 07/26/21 18:15:00 EDT, Weight Dosing Start Date: 08/25/21 Status: Ordered Start: 07-04-2021 take 1 capsule by [facility] once daily Effexor XR 150 mg Cap-ER 150 mg = 1 cap(s), Oral, Daily, # 90 cap(s), Refills(s) 1, Pharmacy: [facility] #[facility], 157, cm, 07/04/21 15:06:00 EDT, Height/Length Dosing, 84.8, kg, 07/04/21 15:10:00 EDT, Weight Dosing Start Date: 07/04/21 Status: Ordered Start: 04-16-2021 End: 08-13-2021 take 1 capsule by mouth once daily Venlafaxine (Effexor Xr) 150 mg capsule,extended release 24hr Discontinued 150 MG PO Daily May 05, 2021 11:00pm July 26, 2021 3:01pm Start: 01-31-2021 End: 04-16-2021 take 1 capsule by mouth once daily Venlafaxine (Effexor Xr) 37.5 mg capsule,extended release 24hr Discontinued 37.5 MG PO Daily January 31, 2021 12:00am April 16, 2021 10:49am Start: 01-31-2021 End: 04-16-2021 take 1 capsule by mouth once daily Venlafaxine (Effexor Xr) 75 mg capsule,extended release 24hr Discontinued 75 MG PO Daily January 31, 2021 12:00am April 16, 2021 10:49am Start: 06-02-2020 take 1 tablet by [facility] once daily Venlafaxine HCl - 37.5 MG Oral Tablet TAKE 1 TABLET DAILY. Quantity: 90 Refills: 0 Ordered: 15-Jul-2020 Nini Rojas Start : 02-Jun-2020 Active Start: 05-30-2020 End: 12-04-2020 take 37.5 mg by mouth once daily at bedtime Venlafaxine Discontinued 37.5 MG PO Daily at bedtime 30 May 29, 2020 11:00pm December 04, 2020 3:06pm Start: 11-24-2018 End: 12-20-2018 take 1 capsule by mouth once daily venlafaxine (EFFEXOR XR) 37.5 MG extended release capsule Indications: Anxiety Take 1 capsule by mouth daily 30 capsule 3 11/24/2018 12/20/2018 Discontinued (LIST CLEANUP) Start: 10-23-2018 take 1 capsule by mo [facility] once daily venlafaxine (EFFEXOR XR) 37.5 MG extended release capsule Indications: Anxiety Take 1 capsule by mouth daily 30 capsule 3 10/23/2018 Active venlafaxine (EFF EXOR) 100 MG tablet Take 150 mg by mouth 3 times daily 0 Active Completed/Discontinued Medications Medication Drug Class(es) Dates Sig (Normalized) Sig (Original) acetaminophen 325 mg / HYDROcodone bitartrate 5 mg oral tablet (18 sources) Opioid Agonist Start: 01-25-2017 End: 08-07-2018 take 1 tablet by mouth every four to six hours Hydrocodone-Aceta minophen (Onarga) 5-325 mg tablet Discontinued 1 TAB PO EVERY 4-6 HOURS January 25, 2017 August 07, 2018 8:06pm 60 actuat albuterol 0.09 mg/actuat metered dose inhaler (2 sources) beta2-Adrenergic Agonist Start: 05-20-2019 take 2 puff(s) by inhalation every six hours as needed for wheezing Albuterol Sulfate HFA 108 (90 Base) MCG/ACT Inhalation Aerosol Solution INHALE 2 PUFFS Every 6 hours PRN SOB/WHEEZING Quantity: 1 Refills: 5 Nini Rojas Start : 20-May-2019 Active 6.7 GM Inhaler ALPRAZolam 0.5 mg oral tablet (18 sources) Benzodiazepine Start: 06-08-2020 End: 09-21-2020 take 1 tablet by mouth three times daily Alprazolam (Xanax) 0.5 mg tablet Discontinued 0.5 MG PO Three times daily 14 June 07, 2020 11:00pm September 21, 2020 9:18am amoxicillin 875 mg / clavulanate 125 mg oral tablet (20 sources) Penicillin-class Antibacterial Start: 04-01-2022 End: 06-07-2022 take 1 tablet by mouth twice daily Amoxicillin-Pot Clavulanate Discontinued 1 TAB PO Twice daily April 01, 2022 12:00am June 07, 2022 3:38pm Start: 01-25-2017 End: 01-30-2017 take 1 tablet by mouth twice daily Amoxicillin-Pot Clavulanate (Augmentin) 875-125 mg tablet Discontinued 1 TAB PO Twice daily 10 January 25, 2017 12:00am January 30, 2017 12:03am ARIPiprazole 10 mg oral tablet (4 sources) Atypical Antipsychotic Start: 03-15-2020 take 1 tablet by mouth once daily ARIPiprazole 10 MG Oral Tablet TAKE 1 TABLET DAILY. Quantity: 90 Refills: 0 Nini Rojas Start : 15-Mar-2020 Active Start: 04-17-2019 take 1 tablet by man th once daily ARIPiprazole 20 MG Oral Tablet TAKE 1 TABLET DAILY. Quantity: 90 Refills: 3 Nini Rojas Start : 17-Apr-2019 Active brompheniramine maleate 0.4 mg/ml / dextromethorphan hydrobromide 2 mg/ml / pseudoephedrine hydrochloride 6 mg/ml oral solution (1 source) alpha-Adrenergic Agonist, Uncompetitive N-lzssng-J-aspartate Receptor Antagonist, Sigma-1 Agonist Start: 04-04-2020 End: 04-13-2020 take 5 mL by mouth every four to six hours brompheniramine/pseudoephedrine/dextrome thorphan [id number]/5 mL oral syrup ; 5 milliliter(s) orally every 4 to 6 hours, As Needed Quantity: 120 Refills: 0 Ordered: 04-Apr-2020 Leann Hall Start: 04-Apr-2020 End: 13-Apr-2020 Status: Other Generic Substitution Allowed Comments: May cause drowsiness. Alcohol may intensify this effect. Use care when operating dangerous machinery.Obtain medical advice before taking any non-prescription drugs as some may affect the action of this medication. Comment on above: May cause drowsiness . Alcohol may intensify this effect. Use care when operating dangerous machinery.Obtain medical advice before taking any non-prescription drugs as some may affect the action of this medication. budesonide 0.032 mg/actuat metered dose nasal spray (1 source) Corticosteroid Start: 04-04-2020 End: 04-13-2020 budesonide 32 mcg/inh nasal spray ; 1 spray(s) intranasally once a day Quantity: 1 Refills: 0 Ordered: 04-Apr-2020 RafaelLeann becerra Start: 04-Apr-2020 End: 13-Apr-2020 Status: Discontinued Generic Substitution Allowed Comments: For the nose.It is very important that you take or use this exactly as directed. Do not skip doses or discontinue unless directed by your doctor.Shake well before use. Comment on above: For the nose.It is v cristiane important that you take or use this exactly as directed. Do not skip doses or discontinue unless directed by your doctor.Shake well before use. buprenorphine 8 mg / naloxone 2 mg sublingual tablet (18 sources) Partial Opioid Agonist, Opioid Antagonist Start: 08-28-2021 End: 03-05-2022 take 1 tablet under the tongue once daily Buprenorphine-Naloxone (Suboxone) 8-2 mg Tablet, Sublingual Discontinued 2 TAB SUBLINGUAL Daily August 27, 2021 11:00pm March 05, 2022 1:58pm busPIRone hydrochloride 10 mg oral tablet (20 sources) Start: 05-17-2020 End: 09-21-2020 take 10 mg by mouth three times daily Buspirone Discontinued 10 MG PO Three ti mes daily June 06, 2020 11:00pm September 21, 2020 9:18am Start: 01-14-2019 take 1 tablet by man th three times daily as needed busPIRone HCl - 10 MG Oral Tablet TAKE 1 TABLET 3 times daily PRN Quantity: 270 Refills: 0 Nini Rojas Start : 14-Jan-2019 Active busPIRone Quanti ty: 0 Refills: 0 Ordered: 20-Mar-2019 Edwin Lujan Status: Other Generic Substitution Allowed clindamycin 150 mg oral capsule (13 sources) Lincosamide Antibacterial Start: 04-03-2022 End: 06-07-2022 take 450 mg by mouth every eight hours Clindamycin Hcl Discontinued 450 MG PO Q8H 63 7 April 03, 2022 12:00am June 07, 2022 3:37pm disulfiram 250 mg oral tablet (20 sources) Aldehyde Dehydrogenase Inhibitor Start: 04-19-2021 End: 07-26-2021 take 250 mg by mouth once daily Disulfiram Discontinued 250 MG PO Daily April 19, 2021 12:00am July 26, 2021 3:01pm Start: 09-21-2020 End: 12-04-2020 Disulfiram Discontinued MG T ABLET September 20, 2020 11:00pm December 04, 2020 3:05pm escitalopram 5 mg oral tablet (8 sources) Serotonin Reuptake Inhibitor Start: 06-10-2022 End: 09-06-2022 take 5 mg by mouth once daily Escitalopram Oxalate Discontinued 5 MG PO Daily June 09, 2022 11:00pm September 06, 2022 10:44am fluconazole 50 mg oral tablet (20 sources) Azole Antifungal Start: 12-16-2022 End: 12-16-2022 fluconazole (Diflucan) tablet 150 mg Start: 04-01-2022 End: 06-07-2022 take 1 tablet by mouth once Fluconazole (Diflucan) 150 mg tablet Discontinued 150 MG PO Once April 01, 2022 12:00am June 07, 2022 3:37pm Start: 09-19-2021 take 1 tablet by mouth once Di flucan 150 mg Tab 150 mg = 1 tab(s), Oral, Once, May get refill if symptoms persist a week after taking the first tablet, # 1 tab(s), Refills(s) 1, Pharmacy: [facility] #[id number], 157, cm, 09/19/21 10:21:00 EDT, Height/Length Dosing, 86, kg, 09/19/21 10:21:00 EDT, Weight Do... Start Date: 09/19/21 Status: Ordered Start: 09-21-2020 End: 12-04-2020 take 1 tablet by mouth once daily Fluconazole (Diflucan) 200 mg tablet Discontinued 200 MG PO Daily September 20, 2020 11:00pm December 04, 2020 3:05pm Start: 08-08-2018 End: 04-13-2020 take 1 tablet by mouth once daily Fluconazole (Diflucan) 200 mg tablet Discontinued 200 MG PO Daily August 07, 2018 11:00pm April 13, 2020 1:22pm fluticasone propionate 0.05 mg/actuat metered dose nasal spray (1 source) Corticosteroid Start: 04-04-2020 End: 04-13-2020 take 1 spray(s) nasal route once daily fluticasone 50 mcg/inh nasal spray ; 1 spray(s) in each nostril once a day Quantity: 1 Refills: 0 Ordered: 04-Apr-2020 Leann Hall Start: 04-Apr-2020 End: 13-Apr-2020 Status: Other Generic Substitution Allowed Comments: For the nose.It is very important that you take or use this exactly as directed. Do not skip doses or discontinue unless directed by your doctor. Comment on above: For the nose.It is v cristiane important that you take or use this exactly as directed. Do not skip doses or discontinue unless directed by your doctor. Haloperidol (1 source) Typical Antipsychotic Start: 12-15-2022 End: 12-15-2022 haloperidol lactate (Haldol) injection 5 mg ibuprofen 600 mg oral tablet (20 sources) Nonsteroidal Anti-inflammatory Drug Start: 03-19-2022 End: 04-01-2022 Ibuprofen Discontinued 600 MG PO Every 6 hours March 19, 2022 12:00am April 01, 2022 6:13pm do not exceed 4 doses in a 24 hour period Start: 03-11-2017 End: 06-07-2022 take 800 mg by mouth three times daily Ibuprofen Discontinued 800 MG PO Three times daily August 27, 2021 11:00pm June 07, 2022 3:39pm Start: 01-25-2017 End: 08-07-2018 Ibuprofen Discontinued 600 M G PO EVERY 4-6 HOURS January 25, 2017 12:00am August 07, 2018 8:06pm do not exceed 4 doses in a 24 hour period iopamidol (ISOVUE-370) 76 % injection 75 mL (1 source) Start: 05-03-2021 End: 05-03-2021 iopamidol (ISOVUE-370) 76 % injection 75 mL levothyroxine sodium 0.112 mg oral tablet (20 sources) l-Thyroxine Start: 04-16-2021 End: 07-26-2021 take 112 ug by mouth once daily Levothyroxine Discontinued 112 MCG PO DAILY@0630 30 April 19, 2021 12:03pm July 26, 2021 3:01pm lurasidone hydrochloride 120 mg oral tablet (20 sources) Atypical Antipsychotic Start: 05-06-2021 End: 07-26-2021 Lurasidone (Latuda) 120 mg tablet Discontinued 120 MG PO Daily May 05, 2021 11:00pm July 26, 2021 3:01pm must administer with food (at least 350 calories) Start: 04-16-2021 End: 07-26-2021 take 1 tablet by mouth once daily Lurasidone (Latuda) 120 mg tablet Discontinued 120 MG PO Daily with supper April 19, 2021 12:03pm July 26, 2021 3:01pm Start: 04-13-2020 End: 04-16-2021 take 1 tablet by mouth once daily Lurasidone (Latuda) 60 mg tablet Discontinued 120 MG PO Daily April 13, 2020 12:00am April 16, 2021 10:47am take 1 tablet by man th once daily lurasidone (LATUDA) 40 MG TABS tablet Take by mouth daily 0 Active take 1 tablet by man th once daily Latuda 120 MG Oral Tablet Take 1 tablet daily Quantity: 90 Refills: 0 Ordered: 15-Jul-2020 Nini Rojas Active metroNIDAZOLE 500 mg oral tablet (18 sources) Nitroimidazole Antimicrobial Start: 09-21-2020 End: 12-04-2020 take 1 tablet by mouth four times daily Metronidazole (Flagyl) 500 mg tablet Discontinued 500 MG PO Four times daily September 20, 2020 11:00pm December 04, 2020 3:06pm Multiple Vitamin (MULTI-VITAMINS) TABS (2 sources) Start: 09-19-2017 End: 12-20-2018 take 1 tablet by mouth once daily Multiple Vitamin (MULTI-VITAMINS) TABS TAKE ONE TABLET BY MOUTH EVERY DAY 0 09/19/2017 12/20/2018 Discontinued (LIST CLEANUP) Start: 09-19-2017 take 1 tablet by man th once daily Multiple Vitamin (MULTI-VITAMINS) TABS TAKE ONE TABLET BY MOUTH EVERY DAY 0 09/19/2017 Active Naltrexone (3 sources) Opioid Antagonist End: 03-10-2020 Naltrexone (VIVITROL IM) Inj ect into the muscle every 30 days 0 03/10/2020 Discontinued (LIST CLEANUP) Vivitrol 380 MG Intramuscular Suspension Reconstituted INJECT INTRAMUSCULARLY DIRECTED. Refills: 0 Active Naltrexone (SELVIN TROL IM) Inject into the muscle every 30 days 0 Active 24 hr nicotine 0.875 mg/hr transdermal system (20 sources) Cholinergic Nicotinic Agonist Start: 12-16-2022 End: 12-16-2022 nicotine (Nicoderm CQ) patch - Omnicell Override Pull Start: 04-19-2021 End: 07-26-2021 Nicotine Discontinued 1 EACH TRANSDERML Daily April 19, 2021 12:00am July 26, 2021 3:01pm Start: 06-08-2020 End: 09-21-2020 apply 1 dose transdermal route once daily Nicotine Discontinued 14 PATCH TRANSDERML Daily June 07, 2020 11:00pm September 21, 2020 9:18am Start: 05-30-2020 End: 06-05-2020 Nicotine Discontinued 1 EACH TRANSDERML Daily May 29, 2020 11:00pm June 05, 2020 12:22pm phenazopyridine hydrochloride 100 mg oral tablet (1 source) Start: 01-27-2020 End: 01-29-2020 take 1 tablet by mouth three times daily at mealtime Pyridium 100 mg oral tablet ; 1 tab(s) orally 3 times a day Quantity: 9 Refills: 0 Ordered: 27-Jan-2020 Colette Howell Start: 27-Jan-2020 End: 29-Jan-2020 Status: Other Generic Substitution Allowed Comments: May discolor urine or feces.Medication should be taken with plenty of water.Take with food or milk. Comment on above: May discolor urine o r feces.Medication should be taken with plenty of water.Take with food or milk. PHENobarbital 130 mg/ml injectable solution (2 sources) Start: 12-15-2022 End: 12-15-2022 PHENobarbital (Luminal) injection 260 mg Start: 12-15-2022 End: 12-15-2022 PHENobarbital (Luminal) inje ction 260 mg rOPINIRole 0.5 mg oral tablet (4 sources) Nonergot Dopamine Agonist Start: 06-02-2020 take 1 tablet by mouth at bedtime rOPINIRole HCl - 0.5 MG Oral Tablet TAKE 1 TABLET Bedtime Quantity: 90 Refills: 0 Ordered: 15-Jul-2020 Ingris LOPEZZACKNini Start : 02-Jun-2020 Active Start: 11-24-2018 End: 03-10-2020 take 1 tablet by mouth three times daily as needed rOPINIRole (REQUIP) 0.5 MG tablet Indications: Restless leg syndrome Take 1 tablet by mouth 3 times daily as needed (RLS) 90 tablet 0 11/24/2018 03/10/2020 Discontinued (LIST CLEANUP) Start: 10-23-2018 take 1 tablet by man th three times daily as needed rOPINIRole (REQUIP) 0.5 MG tablet Indications: Restless leg syndrome Take 1 tablet by mouth 3 times daily as needed (RLS) 90 tablet 0 10/23/2018 Active sulfamethoxazole 800 mg / trimethoprim 160 mg oral tablet (14 sources) Dihydrofolate Reductase Inhibitor Antibacterial, Sulfonamide Antimicrobial Start: 04-03-2022 End: 06-07-2022 take 1 tablet by mouth twice daily Sulfamethoxazole-Trimethoprim (Bactrim Ds) 800-160 mg tablet Discontinued 1 TAB PO Twice daily 14 April 03, 2022 12:00am June 07, 2022 3:37pm Start: 01-27-2020 End: 02-02-2020 take 1 tablet by mouth twice daily Bactrim DS 800 mg-160 mg oral tablet ; 160 milligram(s) orally 2 times a day Quantity: 14 Refills: 0 Ordered: 27-Jan-2020 Colette Howell Start: 27-Jan-2020 End: 02-Feb-2020 Status: Other Generic Substitution Allowed Comments: Avoid prolonged or excessive exposure to direct and/or artificial sunlight while taking this medication.Finish all this medication unless otherwise directed by prescriber.Medication should be taken with plenty of water. Comment on above: Avoid prolonged or e xcessive exposure to direct and/or artificial sunlight while taking this medication.Finish all this medication unless otherwise directed by prescriber.Medication should be taken with plenty of water. 24 hr divalproex sodium 500 mg extended release oral tablet (2 sources) Mood Stabilizer, Anti-epileptic Agent Start: 02-10-20 take 1 tablet by mouth once daily Divalproex Sodium ER 500 MG Oral Tablet Extended Release 24 Hour TAKE 1 TABLET DAILY. Quantity: 90 Refills: 1 Nini Rojas Start : 09-Feb-2019 Active Depakote Quantit y: 0 Refills: 0 Ordered: 20-Mar-2019 Edwin Lujan Status: Other Generic Substitution Allowed zolpidem tartrate 5 mg oral tablet (18 sources) gamma-Aminobutyric Acid-ergic Agonist Start: 01-25-2017 End: 08-07-2018 take 5 mg by mouth once daily at bedtime Zolpidem Discontinued 5 MG PO Daily at bedtime January 25, 2017 12:00am August 07, 2018 8:06pm Problems Active Problems Problem Classification Problem Date Documented Da te Episodic/Chronic Abdominal pain (1 source) Abdominal pain; Translations: [Unspecified abdominal pain] Onset: 07-26-2021 Episodic Administrative/social admission (18 sources) Repeated prescription; Translations: [Encounter for issue of repeat prescription] 04-13-2020 Episodic Alcohol-related disorders (20 sources) Alcohol abuse; Translations: [Alcohol withdrawal syndrome] Onset: 05-03-2021 Chronic Alcohol-related disorders (20 sources) Alcohol intoxication; Translations: [Alcohol use, unspecified with intoxication, unspecified] Onset: 03-12-2022 01-22-2021 Episodic Anxiety disorders (20 sources) Anxiety; Translations: [Generalized anxiety disorder] Onset: 12-14-2016 Resolved: 04-10-2018 04-10-2018 Chronic Cardiac dysrhythmias (6 sources) Palpitations; Translations: [Palpitations] Onset: 12-10-2022 Episodic Diseases of white blood cells (1 source) Leukocytosis; Translations: [Elevated white blood cell count, unspecified] Onset: 08-17-2022 Chronic E Codes: Natural/environment (13 sources) Dog bite - wound; Translations: [Bitten by dog, initial encounter] 04-03-2022 Episodic Essential hypertension (1 source) Essential (primary) hypertension; Translations: [Essential (primary) hypertension] Onset: 02-20-2022 Chronic Fluid and electrolyte disorders (1 source) Dehydration; Translations: [Dehydration] Onset: 08-17-2022 Episodic Genitourinary symptoms and ill-defined conditions (8 sources) Dysuria; Translations: [Dysuria] Onset: 11-30-2022 11-30-2022 Episodic Headache; including migraine (2 sources) Headache; Translations: [Headache] Episodic Hepatitis (20 sources) Chronic hepatitis C; Translations: [Chronic viral hepatitis C] Onset: 06-07-2022 06-08-2020 Chronic Hepatitis (1 source) Hepatitis; Translations: [Chronic viral hepatitis C] Onset: 10-11-2022 Immunizations and screening for infectious disease (8 sources) Exposure to sexually transmissible disorder; Translations: [Contact with and (suspected) exposure to infections with a predominantly sexual mode of transmission] Onset: 11-30-2022 11-30-2022 Episodic Malaise and fatigue (18 sources) Asthenia; Translations: [Weakness] 08-13-2021 Episodic Mood disorders (20 sources) Recurrent major depressive episodes; Translations: [Bipolar disorder, most recent episode depression] Onset: 04-10-2018 04-10-2018 Chronic Mycoses (20 sources) Candidiasis of vagina 12-30-2019 Episodic Nausea and vomiting (20 sources) Nausea; Translations: [Nausea alone] Onset: 12-10-2022 06-12-2020 Episodic Nonspecific chest pain (1 source) Chest pain; Translations: [Chest pain, unspecified] Onset: 01-02-2023 Episodic Nutritional deficiencies (3 sources) Iron deficiency; Translations: [Iron deficiency] Chronic Nutritional deficiencies (1 source) Iron deficiency; Translations: [Iron deficiency anemia, unspecified] Episodic Open wounds of extremities (14 sources) Dog bite of hand; Translations: [Open bite of right hand, initial encounter] 04-01-2022 Episodic Open wounds of head; neck; and trunk (18 sources) Laceration of head; Translations: [Laceration without foreign body of unspecified part of head, initial encounter] 04-10-2021 Episodic Other aftercare (1 source) Patient encounter status; Translations: [Long-term (current) use of other medications] Episodic Other aftercare (1 source) Post-discharge follow-up; Translations: [Other follow-up examination] Episodic Other aftercare (1 source) Other intermediate card tender (current) drug therapy; Translations: [[employer] CURRENT DRUG THERAPY] Onset: 07-31-2021 Episodic Other circulatory disease (1 source) Transient hypertension; Translations: [Elevated blood-pressure reading, without diagnosis of hypertension] Episodic Other complications of (20 sources) Maternal tobacco use in 07-30-2013 Episodic Other connective tissue disease (1 source) Pain in left arm; Translations: [Pain of left upper arm] Episodic Other connective tissue disease (4 sources) Other specified soft tissue disorders; Translations: [OTHER SPEC SOFT TISSUE DISORDERS] Onset: 07-27-2021 Episodic Other gastrointestinal disorders (2 sources) Constipation, unspecified; Translations: [Constipation, unspecified] Onset: 07-26-2021 Episodic Other hereditary and degenerative nervous system conditions (15 sources) Restless legs; Translations: [Restless legs syndrome (RLS)] Onset: 04-10-2018 04-10-2018 Chronic Other infections; including parasitic (18 sources) Infection by Trichomonas; Translations: [Trichomoniasis, unspecified] 08-08-2018 Episodic Other infections; including parasitic (1 source) H/O: infectious disease; Translations: [Personal history of other infectious and parasitic diseases] Onset: 2023 Episodic Other injuries and conditions due to external causes (18 sources) Closed injury of head; Translations: [Unspecified injury of head, initial encounter] 04-14-2021 Episodic Other liver diseases (1 source) Inflammatory disease of liver; Translations: [Inflammatory liver disease, unspecified] Onset: 08-17-2022 Chronic Other liver diseases (19 sources) Enzyme level - finding; Translations: [Elevated transaminase measurement] Onset: 08-17-2022 06-07-2020 Episodic Other liver diseases (1 source) Increased aspartate transaminase level; Translations: [Elevation of levels of liver transaminase levels] Onset: 2023 Episodic Other lower respiratory disease (11 sources) Dyspnea; Translations: [Dyspnea, unspecified] 04-11-2022 Episodic Other nervous system disorders (2 sources) Mononeuropathy of lower limb; Translations: [Unspecified mononeuropathy of unspecified lower limb] Onset: 07-04-2021 Chronic Other nervous system disorders (20 sources) Neuropathy of lower limb 07-04-2021 Chronic Other nervous system disorders (1 source) Disorder of brain; Translations: [Encephalopathy, unspecified] Onset: 08-17-2022 Chronic Other nervous system disorders (1 source) Unspecified abnormal involuntary movements; Translations: [Unspecified abnormal involuntary movements] Onset: 2023 Episodic Other nutritional; endocrine; and metabolic disorders (7 sources) Obesity; Translations: [Obesity, unspecified] Onset: 08-17-2022 Chronic Other nutritional; endocrine; and metabolic disorders (1 source) Obese class I; Translations: [Body mass index (BMI) 34.0-34.9, adult] Onset: 07-04-2021 Chronic Other nutritional; endocrine; and metabolic disorders (7 sources) Hypomagnesemia; Translations: [Hypomagnesemia] 09-06-2022 Chronic Other nutritional; endocrine; and metabolic disorders (1 source) H/O: obesity; Translations: [H/O: obesity] Episodic Other nutritional; endocrine; and metabolic disorders (10 sources) Overweight in adulthood with body mass index of 25 or more but less than 30; Translations: [Body mass index (BMI) 29.0-29.9, adult] Onset: 08-13-2022 Episodic Other nutritional; endocrine; and metabolic disorders (14 sources) Overweight; Translations: [Overweight] Onset: 08-28-2022 Episodic Other screening for suspected conditions (not mental disorders or infectious disease) (20 sources) D-dimer above reference range; Translations: [Procedure carried out on subject] Onset: 07-04-2021 Episodic Other skin disorders (1 source) Generalized hyperhidrosis; Translations: [Generalized hyperhidrosis] Onset: 08-13-2022 Episodic Other skin disorders (15 sources) Hyperhidrosis 08-13-2022 Episodic Other upper respiratory infections (16 sources) Acute pharyngitis; Translations: [Acute pharyngitis, unspecified] Onset: 08-28-2022 Episodic Poisoning by other medications and drugs (18 sources) Poisoning by unspecified drugs, medicaments and biological substances, accidental (unintentional), initial encounter; Translations: [Drug overdose] 09-28-2018 Episodic Residual codes; unclassified (4 sources) Current drinker; Translations: [Other specified conditions influencing health status] Episodic Residual codes; unclassified (1 source) History finding; Translations: [Other specified conditions influencing health status] Episodic Residual codes; unclassified (18 sources) Left against medical advice; Translations: [Procedure and treatment not carried out because of patient's decision for other reasons] 01-31-2021 Episodic Residual codes; unclassified (18 sources) History of clinical finding in subject; Translations: [Personal history of other specified conditions] 01-31-2021 Episodic Residual codes; unclassified (20 sources) Alcoholism; Translations: [Alcohol use disorder] 11-29-2020 Episodic Residual codes; unclassified (9 sources) Altered mental status; Translations: [Altered mental status, unspecified] 06-07-2022 Episodic Residual codes; unclassified (1 source) Tobacco user; Translations: [Tobacco use] Onset: 2023 Episodic Skin and subcutaneous tissue infections (18 sources) Abscess; Translations: [Cutaneous abscess, unspecified] 04-10-2021 Episodic Spondylosis; intervertebral disc disorders; other back problems (16 sources) Cervical radiculopathy; Translations: [Radiculopathy, cervical region] Onset: 03-19-2022 03-19-2022 Episodic Sprains and strains (18 sources) Sprain of ankle; Translations: [Sprain of unspecified ligament of unspecified ankle, initial encounter] 08-28-2021 Episodic Substance-related disorders (20 sources) Cigarette smoker ; Translations: [Tobacco use disorder] Onset: 07-04-2021 Chronic Comment on above: Added secondary to d ocumentation in Social History. Substance-related disorders (12 sources) Cigarette smoker ; Translations: [Alcoholism] Onset: 12-10-2022 11-29-2020 Episodic Suicide and intentional self-inflicted injury (20 sources) Suicidal thoughts; Translations: [Suicidal ideation] 04-15-2021 Episodic Unclassified (9 sources) Patient encounter status; Translations: [Medication management] 07-04-2021 Unclassified (2 sources) TOUNGE DISCOMFORT 09-22-2020 Comment on above: TOUNGE DISCOMFORT Unclassified (1 source) F/U LABS/MED REFILLS 07-18-2020 Comment on above: F/U LABS/MED REFILLS Unclassified (1 source) Alcohol use, unspecified with withdrawal, unspecified (CMS/HCC); Translations: [Alcohol use, unspecified with withdrawal, unspecified (CMS/HCC)] Onset: 12-14-2022 Unclassified (1 source) Unspecified coma; Translations: [Unspecified coma] Onset: 04-03-2022 Unclassified (1 source) Puncture wound without foreign body of right hand, initial encounter; Translations: [Puncture wound without foreign body of right hand, initial encounter] Onset: 04-03-2022 Unclassified (1 source) Other superficial bite of hand of right hand, initial encounter; Translations: [Other superficial bite of hand of right hand, initial encounter] Onset: 04-01-2022 Unclassified (1 source) Alcohol use, unspecified with withdrawal, unspecified; Translations: [Alcohol use, unspecified with withdrawal, unspecified] Onset: 02-19-2022 Unclassified (1 source) F10.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; 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.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] Onset: 2023 Urinary tract infections (20 sources) Urinary tract infectious disease; Translations: [Urinary tract infection, site not specified] Onset: 09-19-2021 Episodic Past or Other Problems Problem Classification Problem Date Documented Date Episodic/Chronic Adjustment disorders (9 sources) Grief finding; Translations: [Adjustment disorder with depressed mood] Onset: 10-30-2016 Resolved: 04-10-2018 04-10-2018 Chronic Appendicitis and other appendiceal conditions (5 sources) Acute appendicitis; Translations: [Unspecified acute appendicitis] Onset: 03-12-2021 03-12-2021 Episodic Hepatitis (20 sources) Viral hepatitis C; Translations: [Unspecified viral hepatitis C without hepatic coma] Onset: 04-24-2022 11-19-2017 Episodic Miscellaneous mental health disorders (9 sources) Adjustment insomnia; Translations: [Acute insomnia] Onset: 09-18-2016 Resolved: 04-10-2018 04-10-2018 Episodic Mood disorders (4 sources) Bipolar disorder, most recent episode depression; Translations: [Bipolar depression] Other aftercare (1 source) Post-discharge follow-up; Translations: [Hospital discharge follow-up] Other lower respiratory disease (1 source) Shortness of breath; Translations: [Shortness of breath] Onset: 04-11-2022 Episodic Residual codes; unclassified (4 sources) Altered mental status, unspecified; Translations: [Altered mental status] Onset: 06-07-2022 06-07-2022 Episodic Unclassified (1 source) History finding; Translations: [No pertinent past medical history] Unclassified (20 sources) Streptococcus agalactiae (organism) 12-30-2019 Unclassified (20 sources) Onset: 02-12-2012 Resolved: 04-22-2012 08-19-2014 Comment on above: chart review Unclassified (1 source) Alcohol use, unspecified with withdrawal, unspecified (CMS/HCC); Translations: [Alcohol use, unspecified with withdrawal, unspecified (CMS/HCC)] Onset: 12-14-2022 NEGATED: Highlighted row has not occurred!Residual codes; unclassified (20 sources) Disease Episodic Results Test Name Value Interpretation Reference Range Facility Alanine aminotransferase [En zymatic activity/volume] in Serum or PlasmaOrdered By: Samanta Castro on 01-25-2023 ALT [Catalytic activity/Vol] 118 U/L 7-52 [facility] Albumin [Mass/volume] in Ser um or Plasma by Bromocresol green (BCG) dye binding methoOrdered By: Samanta Castro on 01-25-2023 Albumin BCG dye [Mass/Vol] 4.4 g/dL 3.5-5.7 [facility] Alkaline phosphatase [Enzyma tic activity/volume] in Serum or PlasmaOrdered By: Samanta Castro on 01-25-2023 ALP [Catalytic activity/Vol] 75 U/L 34-104 [facility] Amphetamine Screen Ql (U)Ord ered By: Samanta Castro on 01-25-2023 Amphetamines Ql (U) Positive Negative [facility] Aspartate aminotransferase [ Enzymatic activity/volume] in Serum or PlasmaOrdered By: Samanta Castro on 01-25-2023 AST [Catalytic activity/Vol] 84 U/L 13-39 [facility] Automated erythrocytes count in urine sediment (number/area)Ordered By: Samanta Castro on 01-25-2023 RBC Auto (Urine sed) [#/Area] 0-1 [HPF] 0-4 [facility] Automated leukocytes count i n urine sediment (number/area)Ordered By: Samanta Castro on 01-25-2023 WBC Auto (Urine sed) [#/Area] 1-2 [HPF] 0-4 [facility] Barbiturates [Presence] in U rine by Screen methodOrdered By: Samanta Castro on 01-25-2023 Barbiturates Screen Ql (U) Positive Negative [facility] Basophils Auto (Bld) [#/Vol] Ordered By: Samanta Castro on 01-25-2023 Basophils (Bld) [#/Vol] 0.1 10*3/uL 0.0-0.2 [facility] Basophils/100 WBC Auto (Bld) Ordered By: Samanta Castro on 01-25-2023 Basophils/100 WBC (Bld) 0.7 % . [facility] Benzodiazepines Screen Ql (U )Ordered By: Samanta Castro on 01-25-2023 Benzodiazepines Ql (U) Positive Negative [facility] Benzoylecgonine [Presence] i n Urine by Screen methodOrdered By: Samanta Castro on 01-25-2023 Benzoylecgonine Screen Ql (U) Positive Negative [facility] Bilirubin Test strip Ql (U)O rdered By: Samanta Castro on 01-25-2023 Bilirubin Ql (U) 2+ Negative [facility] Bilirubin.total [Mass/volume ] in Serum or PlasmaOrdered By: Samanta Castro on 01-25-2023 Bilirubin [Mass/Vol] 0.9 mg/dL 0.3-1.0 [facility] Calcium [Mass/volume] in Ser um or PlasmaOrdered By: Samanta Castro on 01-25-2023 Calcium [Mass/Vol] 9.3 mg/dL 8.6-10.3 [facility] Cannabinoids [Presence] in U rine by Screen methodOrdered By: Samanta Castro on 01-25-2023 Cannabinoids Screen Ql (U) Negative Negative [facility] Comment on above: These are unconfirme d results and should not be used for legal purposes. Drug Cut-Off Concentration: AMPH 1000 ng/mL JANELL 200 ng/mL JAMES 200 ng/mL COCM 300 ng/mL OP 300 ng/mL PCP 25 ng/mL THC 20 ng/mL Carbon dioxide, total [Moles /volume] in Serum or PlasmaOrdered By: Samanta Castro on 01-25-2023 CO2 [Moles/Vol] 24.8 mmol/L 21.0-31.0 [facility] Chloride [Moles/volume] in S marbella or PlasmaOrdered By: Samanta Castro on 01-25-2023 Chloride [Moles/Vol] 102 mmol/L 98-107 [facility] Color Auto (U)Ordered By: Rickey quynh Castro on 01-25-2023 Color (U) Dark yellow Yellow [facility] Complete Blood Count Auto Di ffon 01-25-2023 Basophils (Bld) [#/Vol] 0.1 10*3/uL Normal 0.0-0.2 [facility] Comment on above: Result Comment: PERF ORMED BY: [place] [address] PATHOLOGIST FOOD AND BEVERAGE COORDINATOR LEE CARDOSO M.D. Performed By: #### E ODALIS CMP, CBC #### [facility] [address] [place] [address] Basophils/100 WBC (Bld) 0.7 % Normal . [facility] Comment on above: Performed By: #### E ODALIS, CMP, CBC #### [facility] [address] [place] [address] Eosinophils (Bld) [#/Vol] 0.0 10*3/uL Normal 0.0-0.45 [facility] Comment on above: Performed By: #### E ODALIS, CMP, CBC #### [facility] [address] [place] [address] Eosinophils/100 WBC (Bld) 0.6 % Normal . [facility] Comment on above: Performed By: #### E ODALIS, CMP, CBC #### [facility] [address] [place] [address] Erythrocyte distribution width (RBC) [Ratio] 13.1 % Normal 11.9-15.3 [facility] Comment on above: Performed By: #### E ODALIS CMP, CBC #### [facility] [address] [place] [address] Hematocrit (Bld) [Volume fraction] 38.3 % Normal 34.0-46.4 [facility] Comment on above: Performed By: #### E ODALIS CMP, CBC #### [facility] [address] [place] [address] Hemoglobin (Bld) [Mass/Vol] 13.4 g/dL Normal 11.8-15.4 [facility] Comment on above: Performed By: #### E TRIPP JACOBO, CBC #### [address] Lymphocytes (Bld) [#/Vol] 2.7 10*3/uL Normal 1.00-4.8 [facility] Comment on above: Performed By: #### E TRIPP JACOBO, CBC #### [address] Lymphocytes/100 WBC (Bld) 35.8 % Normal . [facility] Comment on above: Performed By: #### E TRIPP JACOBO, CBC #### [address] MCH (RBC) [Entitic mass] 34.4 pg High 24.7-34.3 [facility] Comment on above: Performed By: #### E TRIPP JACOBO, CBC #### [address] MCV (RBC) [Entitic vol] 98.7 fL Normal 80-100 [facility] Comment on above: Performed By: #### E TRIPP JACOBO, CBC #### [address] Mean Corpuscular HGB Conc 34.9 g/dL Normal 32.0-35.0 [facility] Comment on above: Performed By: #### E TRIPP JACOBO, CBC #### [address] Monocytes (Bld) [#/Vol] 0.8 10*3/uL Normal 0.0-0.8 [facility] Comment on above: Performed By: #### E TRIPP JACOBO, CBC #### [address] Monocytes/100 WBC (Bld) 19.94 % Normal 0.00-20.00 [facility] Comment on above: Performed By: #### E TRIPP JACOBO, CBC #### [address] [address] [place] Monocytes/100 WBC (Bld) 10.2 % Normal . [facility] Comment on above: Performed By: #### E TRIPP JACOBO, CBC #### [facility] [address] Neutrophils (Bld) [#/Vol] 3.9 10*3/uL Normal 1.8-7.7 [facility] Comment on above: Performed By: #### E TRIPP JACOBO, CBC #### [address] Neutrophils/100 WBC (Bld) 52.7 % Normal . [facility] Comment on above: Performed By: #### E TRIPP JACOBO, CBC #### [address] NRBC% 0.1 /100{WBC} Normal 0-0.5 [facility] Comment on above: Performed By: #### E TRIPP JACOBO, CBC #### [address] Platelet mean volume (Bld) [Entitic vol] 9.1 fL Normal 6.3-10.7 [facility] Comment on above: Performed By: #### E TRIPP JACOBO, CBC #### [place] [address] [place] Platelets (Bld) [#/Vol] 124 10*3/uL Low 150-450 [facility] Comment on above: Performed By: #### E TRIPP JACOBO, CBC #### [facility] [address] [place] [address] [place] RBC (Bld) [#/Vol] 3.88 10*6/uL Normal 3.60-5.00 [facility] Comment on above: Performed By: #### E TRIPP JACOBO, CBC #### [place] [address] [place] WBC (Bld) [#/Vol] 7.4 10*3/uL Normal 3.8-11.6 [facility] Comment on above: Performed By: #### E TRIPP JACOBO, CBC #### [facility] [address] Comprehensive Metabolic Pane mary beth 01-25-2023 Albumin [Mass/Vol] 4.4 g/dL Normal 3.5-5.7 [facility] Comment on above: Performed By: #### E TRIPP JACOBO, CBC #### [facility] [address] Albumin/Globulin [Mass ratio] 1.3 {ratio} Normal [facility] Comment on above: Performed By: #### E TRIPP JACOBO, CBC #### [facility] [address] ALP [Catalytic activity/Vol] 75 U/L Normal 34-104 [facility] Comment on above: Performed By: #### E TRIPP JACOBO, CBC #### [facility] [address] ALT [Catalytic activity/Vol] 118 U/L High 7-52 [facility] Comment on above: Performed By: #### E TRIPP JACOBO, CBC #### [facility] [address] Anion gap [Moles/Vol] 12.6 mmol/L Normal 6.0-15.0 [facility] Comment on above: Performed By: #### E TRIPP JACOBO, CBC #### [facility] [address] AST [Catalytic activity/Vol] 84 U/L High 13-39 [facility] Comment on above: Performed By: #### E TRIPP JACOBO, CBC #### [facility] [address] [place] [id number] [place] Bilirubin [Mass/Vol] 0.9 mg/dL Normal 0.3-1.0 [facility] Comment on above: Performed By: #### E TRIPP JACOBO, CBC #### [facility] [address] [place] [phone] [facility] Calcium [Mass/Vol] 9.3 mg/dL Normal 8.6-10.3 [facility] Comment on above: Performed By: #### E TRIPP JACOBO, CBC #### [facility] [address] [place] [address] [place] Chloride [Moles/Vol] 102 mmol/L Normal 98-107 [facility] Comment on above: Performed By: #### E TRIPP JACOBO, CBC #### [facility] [address] [place] [address] [place] CO2 [Moles/Vol] 24.8 mmol/L Normal 21.0-31.0 [facility] Comment on above: Performed By: #### E TRIPP JACOBO, CBC #### [facility] [address] [place] [address] [place] Creatinine [Mass/Vol] 0.71 mg/dL Normal 0.60-1.20 [facility] Comment on above: Performed By: #### E TRIPP JACOBO, CBC #### [facility] [address] [place] [address] [place] Creatinine Clr Calc Pharmacy 102.16 [facility] Comment on above: Performed By: #### E TRIPP JACOBO, CBC #### [facility] [address] [place] [address] [place] GFR/1.73 sq M.predicted MDRD (S/P/Bld) [Vol rate/Area] mL/min/{1.73_m2} [facility] Comment on above: Performed By: #### E TRIPP JACOBO, CBC #### [facility] [address] [place] [address] [place] Globulin (S) [Mass/Vol] 3.4 g/dL [facility] Comment on above: Performed By: #### E TRIPP JACOBO, CBC #### [facility] [address] [place] [address] [place] Glucose [Mass/Vol] 88 mg/dL Normal 70-100 [facility] Comment on above: Result Comment: [place] Glucose Reference Range is dependent on time and content of last meal. Glucose of more than 200 mg/dL in a nonstressed, ambulatory subject supports the diagnosis of Diabetes Mellitus. ADA recommended reference range Performed By: #### E ODALIS, CMP, CBC #### [facility] [address] [place] [address] [place] Potassium [Moles/Vol] 3.4 mmol/L Low 3.5-5.1 [facility] Comment on above: Performed By: #### E ODALIS CMP, CBC #### [facility] [address] [place] [address] [place] Protein [Mass/Vol] 7.8 g/dL Normal 6.4-8.9 [facility] Comment on above: Performed By: #### E ODALIS, CMP, CBC #### [facility] [address] [place] [address] [place] Sodium [Moles/Vol] 136 mmol/L Normal 136-145 [facility] Comment on above: Performed By: #### E ODALIS CMP, CBC #### [facility] [address] [place] [address] [place] Urea nitrogen [Mass/Vol] 13 mg/dL Normal 7-25 [facility] Comment on above: Performed By: #### E TRIPP JACOBO, CBC #### [facility] [address] [place] [phone] [place] Creatinine [Mass/volume] in Serum or PlasmaOrdered By: Samanta Castro on 01-25-2023 Creatinine [Mass/Vol] 0.71 mg/dL 0.60-1.20 [facility] Dipstick and Microscopicon 1 03-28-2022 Appearance (U) Clear Normal Clear [facility] Comment on above: Order Comment: Name Collection Type:: Clean-Voided Midstream Performed By: #### H S TROP, CBC, DDIMER, PP, MG, BMP #### [facility] [address] [place] [phone] [place] Bacteria,Urine None Seen Normal None Seen [facility] Comment on above: Order Comment: Name Collection Type:: Clean-Voided Midstream Performed By: #### H S TROP, CBC, DDIMER, PP, MG, BMP #### [facility] [address] [place] [phone] [place] Bilirubin,Urine 2+ High Negative [facility] Comment on above: Order Comment: Name Collection Type:: Clean-Voided Midstream Performed By: #### H S TROP, CBC, DDIMER, PP, MG, BMP #### [facility] [address] [place] [address] Color (U) Dark Yellow Critically abnormal Yellow [facility] Comment on above: Order Comment: Name Collection Type:: Clean-Voided Midstream Performed By: #### H S TROP, CBC, DDIMER, PP, MG, BMP #### [facility] [address] [place] [address] Glucose Ql (U) Normal Normal Normal [facility] Comment on above: Order Comment: Name Collection Type:: Clean-Voided Midstream Performed By: #### H S TROP, CBC, DDIMER, PP, MG, BMP #### [address] Hyaline Casts,Urine 9-19 High 0-8 [facility] Comment on above: Order Comment: Name Collection Type:: Clean-Voided Midstream Performed By: #### H S TROP, CBC, DDIMER, PP, MG, BMP #### [facility] [address] [place] [address] [place] Ketones Ql (U) Trace High Negative [facility] Comment on above: Order Comment: Name Collection Type:: Clean-Voided Midstream Performed By: #### H S TROP, CBC, DDIMER, PP, MG, BMP #### [facility] [address] [place] [address] [place] Leukocyte esterase Test strip Ql (U) 1+ High Negative [facility] Comment on above: Order Comment: Name Collection Type:: Clean-Voided Midstream Performed By: #### H S TROP, CBC, DDIMER, PP, MG, BMP #### [facility] [address] [place] [address] [place] Nitrite,Urine Positive High Negative [facility] Comment on above: Order Comment: Name Collection Type:: Clean-Voided Midstream Performed By: #### H S TROP, CBC, DDIMER, PP, MG, BMP #### [address] [address] [place] Occult Blood,Urine Negative Normal Negative [facility] Comment on above: Order Comment: Name Collection Type:: Clean-Voided Midstream Performed By: #### H S TROP, CBC, DDIMER, PP, MG, BMP #### [address] pH (U) 5.5 [pH] Normal 5.0-9.0 [facility] Comment on above: Order Comment: Name Collection Type:: Clean-Voided Midstream Performed By: #### H S TROP, CBC, DDIMER, PP, MG, BMP #### [address] Protein (U) [Mass/Vol] 30 mg/dL High Negative [facility] Comment on above: Order Comment: Name Collection Type:: Clean-Voided Midstream Performed By: #### H S TROP, CBC, DDIMER, PP, MG, BMP #### [facility] [address] [place] [address] RBC LM.HPF (Urine sed) [#/Area] 0 /[HPF] Normal 0-4 [facility] Comment on above: Order Comment: Name Collection Type:: Clean-Voided Midstream Performed By: #### H S TROP, CBC, DDIMER, PP, MG, BMP #### [address] Specificy [place],Urine 1.042 High 1.001-1.030 [facility] Comment on above: Order Comment: Name Collection Type:: Clean-Voided Midstream Performed By: #### H S TROP, CBC, DDIMER, PP, MG, BMP #### [address] Squamous Epithelial Cell,Urine 3-4 High 0-2 [facility] Comment on above: Order Comment: Name Collection Type:: Clean-Voided Midstream Performed By: #### H S TROP, CBC, DDIMER, PP, MG, BMP #### [address] Urobilinogen,Urine Normal Normal Normal [facility] Comment on above: Order Comment: Name Collection Type:: Clean-Voided Midstream Performed By: #### H S TROP, CBC, DDIMER, PP, MG, BMP #### [facility] [address] [place] [address] WBC,Urine 1-2 Normal 0-4 [facility] Comment on above: Order Comment: Name Collection Type:: Clean-Voided Midstream Performed By: #### H S TROP, CBC, DDIMER, PP, MG, BMP #### [facility] [address] [place] [address] [place] Drug Screen,Urineon 01-26-20 Amphetamine Screen,Urine Positive High Negative [facility] Comment on above: Performed By: #### H S TROP, CBC, DDIMER, PP, MG, BMP #### [facility] [address] [place] [address] Barbiturate Screen,Urine Positive High Negative [facility] Comment on above: Performed By: #### H S TROP, CBC, DDIMER, PP, MG, BMP #### [facility] [address] [place] [address] Benzodiazepines Screen,Urine Positive High Negative [facility] Comment on above: Performed By: #### H S TROP, CBC, DDIMER, PP, MG, BMP #### [facility] [address] [place] [address] Cannabinoid Screen,Urine Negative Normal Negative [facility] Comment on above: Result Comment: Thes e are unconfirmed results and should not be used for legal purposes. Drug Cut-Off Concentration: AMPH 1000 ng/mL JANELL 200 ng/mL JAEMS 200 ng/mL COCM 300 ng/mL OP 300 ng/mL PCP 25 ng/mL THC 20 ng/mL PERFORMED BY: [place] [address] PATHOLOGIST FOOD AND BEVERAGE COORDINATOR LEE CARDOSO M.D. Performed By: #### H S TROP, CBC, DDIMER, PP, MG, BMP #### [facility] [address] [place] [address] Cocaine Screen,Urine Positive High Negative [facility] Comment on above: Performed By: #### H S TROP, CBC, DDIMER, PP, MG, BMP #### [facility] [address] Opiate Screen,Urine Negative Normal Negative [facility] Comment on above: Performed By: #### H S TROP, CBC, DDIMER, PP, MG, BMP #### [facility] [address] Phencyclidine Screen,Urine Negative Normal Negative [facility] Comment on above: Performed By: #### H S TROP, CBC, DDIMER, PP, MG, BMP #### [facility] [address] ECG 12 lead ECGon 01-25-2023 ECG 12 lead ECG [facility] [address] [place] [address] Electrocardiograph Report Signed Patient: Lyle Flynn MR#: [id number] : 1990 Acct:[id number] Age/Sex: 33 / F ADM Date: 01/25/23 Loc: ER Room: Type: [facility] ER Attending Dr: Ordering Provider: Samanta Castro Jr, MD Date of Service: 01/25/23 ECG/ECG 12 lead ECG: Arrhythmia/Palpitations Copies to: Test Reason : Blood Pressure : 186/112 mmHG Vent. Rate : 090 BPM Atrial Rate : 090 BPM P-R Int : 160 ms QRS Dur : 084 ms QT Int : 376 ms P-R-T Axes : 061 091 019 degrees QTc Int : 459 ms Normal sinus rhythm Right atrial enlargement Rightward axis Borderline ECG When compared with ECG of 19-JAN-2023 11:25, No significant change was found Confirmed by SAMANTA CASTRO MD ([id number]) on 01/25/2023 3:59:06 AM Referred By: Electronically Signed By:SAMANTA CASTRO MD Transcribed By: MUS Signed By Samanta Castro Jr, MD [id number] Normal [facility] Eosinophils Auto (Bld) [#/Vo l]Ordered By: Samanta Castro on 01-25-2023 Eosinophils (Bld) [#/Vol] 0.0 10*3/uL 0.0-0.45 [facility] Eosinophils/100 WBC Auto (Bl d)Ordered By: Samanta Castro on 01-25-2023 Eosinophils/100 WBC (Bld) 0.6 % . [facility] Erythrocyte distribution wid th Auto (RBC) [Ratio]Ordered By: Samanta Castro on 01-25-2023 Erythrocyte distribution width (RBC) [Ratio] 13.1 % 11.9-15.3 [facility] Ethanol [Mass/volume] in Ser um or PlasmaOrdered By: Samanta Castro on 01-25-2023 Ethanol [Mass/Vol] mg/dL [facility] Ethanol [Mass/Vol] TNP [facility] Comment on above: Test not performed Ethyl Alcohol Profileon 01-11 Ethanol [Mass/Vol] mg/dL Normal [facility] Comment on above: Performed By: #### E ODALIS, CMP, CBC #### [facility] [address] Percent Ethanol Not performed Normal [facility] Comment on above: Result Comment: PERF ORMED BY: [facility] [address] [place] [address] PATHOLOGIST FOOD AND BEVERAGE COORDINATOR LEE CARDOSO M.D. Performed By: #### E ODALIS CMP, CBC #### [facility] [address] Globulin Calc (S) [Mass/Vol] Ordered By: Samanta Castro on 01-25-2023 Globulin (S) [Mass/Vol] 3.4 g/dL [facility] Glucose [Mass/volume] in Ser um or PlasmaOrdered By: Samanta Castro on 01-25-2023 Glucose [Mass/Vol] 88 mg/dL 70-100 [facility] Comment on above: ADA recommended refe rence rangeRandom Glucose Reference Range is dependent on time and content of last meal. Glucose of more than 200 mg/dL in a nonstressed, ambulatory subject supports the diagnosis of Diabetes Mellitus. HCG ( test) [place].rapi d Ql (U)Ordered By: Samanta Castro on 01-25-2023 HCG ( test) Ql (U) Negative [facility] HCG,Urineon 01-25-2023 Beta HCG ( test) Ql (U) Negative Normal [facility] Comment on above: Order Comment: Name Collection Type:: Clean-Voided Midstream Result Comment: PERF ORMED BY: [facility] [address] [place] [address] PATHOLOGIST FOOD AND BEVERAGE COORDINATOR LEE CARDOSO M.D. Performed By: #### H S TROP, CBC, DDIMER, PP, MG, BMP #### [facility] [address] Hematocrit Auto (Bld) [Volum e fraction]Ordered By: Samanta Castro on 01-25-2023 Hematocrit (Bld) [Volume fraction] 38.3 % 34.0-46.4 [facility] Hemoglobin [Mass/volume] in BloodOrdered By: Samanta Castro on 01-25-2023 Hemoglobin (Bld) [Mass/Vol] 13.4 g/dL 11.8-15.4 [facility] Ketones Auto test strip (U) [Mass/Vol]Ordered By: Samanta Castro on 01-25-2023 Ketones (U) [Mass/Vol] Trace Negative [facility] Laboratory - UrinalysisOrder ed By: Samanta Castro on 01-25-2023 Hyaline casts LM Ql (Urine sed) 9-19 [LPF] 0-8 [facility] Leukocytes [#/volume] correc jose for nucleated erythrocytes in Blood by Automated counOrdered By: Samanta Castro on 01-25-2023 WBC corrected for nucl RBC Auto (Bld) [#/Vol] 7.4 10*3/uL 3.8-11.6 [facility] Lymphocytes Auto (Bld) [#/Vo l]Ordered By: Samanta Castro on 01-25-2023 Lymphocytes (Bld) [#/Vol] 2.7 10*3/uL 1.00-4.8 [facility] Lymphocytes/100 WBC Auto (Bl d)Ordered By: Samanta Castro on 01-25-2023 Lymphocytes/100 WBC (Bld) 35.8 % . [facility] MCH Auto (RBC) [Entitic mass ]Ordered By: Samanta Castro on 01-25-2023 MCH (RBC) [Entitic mass] 34.4 pg 24.7-34.3 [facility] MCHC Auto (RBC) [Mass/Vol]Or dered By: Samanta Castro on 01-25-2023 MCHC (RBC) [Mass/Vol] 34.9 g/dL 32.0-35.0 [facility] MCV Auto (RBC) [Entitic vol] Ordered By: Samanta Castro on 01-25-2023 MCV (RBC) [Entitic vol] 98.7 fL 80-100 [facility] Magnesiumon 01-25-2023 Magnesium [Mass/Vol] 1.9 mg/dL Normal 1.9-2.7 [facility] Comment on above: Result Comment: PERF ORMED BY: [place] [address] PATHOLOGIST FOOD AND BEVERAGE COORDINATOR LEE CARDOSO M.D. Performed By: #### E ODALIS, CMP, CBC #### [address] Magnesium [Mass/volume] in S marbella or PlasmaOrdered By: Samanta Castro on 01-25-2023 Magnesium [Mass/Vol] 1.9 mg/dL 1.9-2.7 [facility] Monocyte distribution width [Entitic volume] in Blood by AutomatedOrdered By: Samanta Castro on 01-25-2023 Monocyte distribution width Auto (Bld) [Entitic vol] 19.94 % 0.00-20.00 [facility] Monocytes Auto (Bld) [#/Vol] Ordered By: Samanta Castro on 01-25-2023 Monocytes (Bld) [#/Vol] 0.8 10*3/uL 0.0-0.8 [facility] Monocytes/100 WBC Auto (Bld) Ordered By: Samanta Castro on 01-25-2023 Monocytes/100 WBC (Bld) 10.2 % . [facility] Neutrophils Auto (Bld) [#/Vo l]Ordered By: Samanta Castro on 01-25-2023 Neutrophils (Bld) [#/Vol] 3.9 10*3/uL 1.8-7.7 [facility] Neutrophils/100 WBC Auto (Bl d)Ordered By: Samanta Castro on 01-25-2023 Neutrophils/100 WBC (Bld) 52.7 % . [facility] Nitrite Test strip Ql (U)Ord ered By: Samanta Castro on 01-25-2023 Nitrite Ql (U) Positive Negative [facility] No Panel InformationOrdered By: Samanta Castro on 01-25-2023 Estimated GFR (CKD-EPI) > 60.0 mL/Min [facility] Creatinine Clearance (Chem 102.16 [facility] Nucleated erythrocytes [Pres ence] in Blood by Automated countOrdered By: Samanta Castro on 01-25-2023 Nucleated RBC Auto Ql (Bld) 0.1 /100{WBC} 0-0.5 [facility] Opiates [Presence] in Urine by Screen methodOrdered By: Samanta Castro on 01-25-2023 Opiates Screen Ql (U) Negative Negative [facility] Phencyclidine Screen Ql (U)O rdered By: Samanta Castro on 01-25-2023 Phencyclidine Ql (U) Negative Negative [facility] Platelet mean volume Auto (B ld) [Entitic vol]Ordered By: Samanta Castro on 01-25-2023 Platelet mean volume (Bld) [Entitic vol] 9.1 fL 6.3-10.7 [facility] Platelets Auto (Bld) [#/Vol] Ordered By: Samanta Castro on 01-25-2023 Platelets (Bld) [#/Vol] 124 10*3/uL 150-450 [facility] Potassium [Moles/volume] in Serum or PlasmaOrdered By: Samanta Castro on 01-25-2023 Potassium [Moles/Vol] 3.4 mmol/L 3.5-5.1 [facility] Protein Auto test strip (U) [Mass/Vol]Ordered By: Samanta Castro on 01-25-2023 Protein (U) [Mass/Vol] 30 mg/dL Negative [facility] Protein [Mass/volume] in Ser um or PlasmaOrdered By: Samanta Castro on 01-25-2023 Protein [Mass/Vol] 7.8 g/dL 6.4-8.9 [facility] Quick Strepon 01-25-2023 Quick Strep Streptococcus pyogen es Ag [Presence] in Throat by Rapid immunoassay Negative for Group A Strep Antigen Note 1 NOTE 2 Results are those of a screening test. NOTE 3 If clinically indicated please order a culture. NOTE 4 NOTE 5 Reference range = Negative PERFORMED BY: [facility] [address] [place] [address] PATHOLOGIST FOOD AND BEVERAGE COORDINATOR LEE CARDOSO M.D. Normal [facility] Comment on above: Performed By: #### H S TROP, CBC, DDIMER, PP, MG, BMP #### [facility] [address] RBC Auto (Bld) [#/Vol]Ordere d By: Samanta Castro on 01-25-2023 RBC (Bld) [#/Vol] 3.88 10*6/uL 3.60-5.00 [facility] Serum or plasma albumin/glob ulin mass ratioOrdered By: Samanta Castro on 01-25-2023 Albumin/Globulin [Mass ratio] 1.3 {ratio} [facility] Serum or plasma anion gap de terminationOrdered By: Samanta Castro on 01-25-2023 Anion gap [Moles/Vol] 12.6 mmol/L 6.0-15.0 [facility] Sodium [Moles/volume] in Ser um or PlasmaOrdered By: Samanta Castro on 01-25-2023 Sodium [Moles/Vol] 136 mmol/L 136-145 [facility] Specific gravity Auto test s trip (U) [Rel density]Ordered By: Samanta Castro on 01-25-2023 Specific gravity (U) [Rel density] 1.042 1.001-1.030 [facility] Squamous epithelial cells de tection in urine sediment by light microscopyOrdered By: Samanta Castro on 01-25-2023 Epithelial cells.squamous LM Ql (Urine sed) 3-4 [HPF] 0-2 [facility] Streptococcus pyogenes antig en detectionOrdered By: Samanta Castro on 01-25-2023 S. pyogenes Ag Ql (Unsp spec) [facility] Urea nitrogen [Mass/volume] in Serum or PlasmaOrdered By: Samanta Castro on 01-25-2023 Urea nitrogen [Mass/Vol] 13 mg/dL 7- [facility] Urine Cultureon 01-25-2023 Bacteria identified Cx Nom (U) ORGANISM: Strep agalactiae - (group b) (O:STRAGA) Edon Count 15,000 PERFORMED BY: [place] [address] PATHOLOGIST FOOD AND BEVERAGE COORDINATOR LEE CARDOSO M.D. Normal [facility] Comment on above: Performed By: #### H S TROP, CBC, DDIMER, PP, MG, BMP #### [address] Urine bacteria detection by automated methodOrdered By: Samanta Castro on 01-25-2023 Bacteria Auto Ql (U) None seen None Seen [facility] Urine clarity by refractomet ry automatedOrdered By: Samanta Castro on 01-25-2023 Clarity Refractometry automated (U) Clear Clear [facility] Urine culture routineOrdered By: Samanta Castro on 01-25-2023 Bacteria identified Cx Nom (U) Strep agalactiae - (group b) [facility] Urine glucose measurement by automated test strip (mass/volume)Ordered By: Samanta Castro on 01-25-2023 Glucose Auto test strip (U) [Mass/Vol] Normal mg/dL Normal [facility] Urine hemoglobin detection b y automated test stripOrdered By: Samanta Castro on 01-25-2023 Hemoglobin Auto test strip Ql (U) Negative Negative [facility] Urine leukocyte esterase det ection by automated test stripOrdered By: Samanta Castro on 01-25-2023 Leukocyte esterase Auto test strip Ql (U) 1+ Negative [facility] Urobilinogen Auto test strip (U) [Mass/Vol]Ordered By: Samanta Castro on 01-25-2023 Urobilinogen (U) [Mass/Vol] Normal mg/dL Normal [facility] WBC Auto (Bld) [#/Vol]Ordere d By: Samanta Castro on 01-25-2023 WBC (Bld) [#/Vol] 7.4 10*3/uL 3.8-11.6 [facility] pH Auto test strip (U)Ordere d By: Samanta Castro on 01-25-2023 pH (U) 5.5 [pH] 5.0-9.0 [facility] ED Note-Physicianon 01-22-20 ED Note-Physician [id number]#[id number] F Normal [facility] Alanine aminotransferase [En zymatic activity/volume] in Serum or PlasmaOrdered By: Pavel Yao on 01-19-2023 ALT [Catalytic activity/Vol] 142 U/L 7-52 [facility] Albumin [Mass/volume] in Ser um or Plasma by Bromocresol green (BCG) dye binding methoOrdered By: Pavel Yao on 01-19-2023 Albumin BCG dye [Mass/Vol] 4.4 g/dL 3.5-5.7 [facility] Alkaline phosphatase [Enzyma tic activity/volume] in Serum or PlasmaOrdered By: Pavel Yao on 01-19-2023 ALP [Catalytic activity/Vol] 87 U/L 34-104 [facility] Aspartate aminotransferase [ Enzymatic activity/volume] in Serum or PlasmaOrdered By: Pavel Yao on 01-19-2023 AST [Catalytic activity/Vol] 220 U/L 13-39 [facility] Automated erythrocytes count in urine sediment (number/area)Ordered By: Pavel Yao on 01-19-2023 RBC Auto (Urine sed) [#/Area] 0-1 [HPF] 0-4 [facility] Automated leukocytes count i n urine sediment (number/area)Ordered By: Pavel Yao on 01-19-2023 WBC Auto (Urine sed) [#/Area] 0-1 [HPF] 0-4 [facility] Automated urine color determ inationOrdered By: Pavel Yao on 01-19-2023 Color (U) Yellow Yellow [facility] Comment on above: Order Comment: Name Collection Type:: Clean-Voided Midstream Performed By: #### H S TROP, CBC, DDIMER, PP, MG, BMP #### [facility] [address] Basophils Auto (Bld) [#/Vol] Ordered By: Pavel Yao on 01-19-2023 Basophils (Bld) [#/Vol] 0.1 10*3/uL 0.0-0.2 [facility] Basophils/100 WBC Auto (Bld) Ordered By: Pavel Yao on 01-19-2023 Basophils/100 WBC (Bld) 1.0 % . [facility] Bilirubin Test strip Ql (U)O rdered By: Pavel Yao on 01-19-2023 Bilirubin Ql (U) Negative Negative [facility] Bilirubin.total [Mass/volume ] in Serum or PlasmaOrdered By: Pavel Yao on 01-19-2023 Bilirubin [Mass/Vol] 0.6 mg/dL 0.3-1.0 [facility] Calcium [Mass/volume] in Ser um or PlasmaOrdered By: Pavel Yao on 01-19-2023 Calcium [Mass/Vol] 8.9 mg/dL 8.6-10.3 [facility] Carbon dioxide, total [Moles /volume] in Serum or PlasmaOrdered By: Pavel Yao on 01-19-2023 CO2 [Moles/Vol] 23.2 mmol/L 21.0-31.0 [facility] Chloride [Moles/volume] in S marbella or PlasmaOrdered By: Pavel Yao on 01-19-2023 Chloride [Moles/Vol] 102 mmol/L 98-107 [facility] Complete Blood Count Auto Di ffon 01-19-2023 Basophils (Bld) [#/Vol] 0.1 10*3/uL Normal 0.0-0.2 [facility] Comment on above: Result Comment: PERF ORMED BY: [address] [place] [address] PATHOLOGIST FOOD AND BEVERAGE COORDINATOR LEE CARDOSO M.D. Performed By: #### E ODALIS, CMP, CBC #### [facility] [address] Basophils/100 WBC (Bld) 1.0 % Normal . [facility] Comment on above: Performed By: #### E ODALIS, CMP, CBC #### [facility] [address] Eosinophils (Bld) [#/Vol] 0.1 10*3/uL Normal 0.0-0.45 [facility] Comment on above: Performed By: #### E ODALIS, CMP, CBC #### [address] Eosinophils/100 WBC (Bld) 0.9 % Normal . [facility] Comment on above: Performed By: #### E ODALIS, CMP, CBC #### [address] Erythrocyte distribution width (RBC) [Ratio] 13.2 % Normal 11.9-15.3 [facility] Comment on above: Performed By: #### E ODALIS, CMP, CBC #### [address] Hematocrit (Bld) [Volume fraction] 40.5 % Normal 34.0-46.4 [facility] Comment on above: Performed By: #### E ODALIS CMP, CBC #### [address] Hemoglobin (Bld) [Mass/Vol] 14.2 g/dL Normal 11.8-15.4 [facility] Comment on above: Performed By: #### E ODALIS, CMP, CBC #### [place] [address] [place] Lymphocytes (Bld) [#/Vol] 2.4 10*3/uL Normal 1.00-4.8 [facility] Comment on above: Performed By: #### E ODALIS, CMP, CBC #### [place] [address] [place] Lymphocytes/100 WBC (Bld) 39.8 % Normal . [facility] Comment on above: Performed By: #### E ODALIS, CMP, CBC #### [address] MCH (RBC) [Entitic mass] 34.3 pg Normal 24.7-34.3 [facility] Comment on above: Performed By: #### E ODALIS CMP, CBC #### [address] MCV (RBC) [Entitic vol] 97.9 fL Normal 80-100 [facility] Comment on above: Performed By: #### E ODALIS CMP, CBC #### [address] Mean Corpuscular HGB Conc 35.0 g/dL Normal 32.0-35.0 [facility] Comment on above: Performed By: #### E ODALIS CMP, CBC #### [address] Monocytes (Bld) [#/Vol] 0.3 10*3/uL Normal 0.0-0.8 [facility] Comment on above: Performed By: #### E ODALIS CMP, CBC #### [address] Monocytes/100 WBC (Bld) 14.57 % Normal 0.00-20.00 [facility] Comment on above: Performed By: #### E TRIPP JACOBO, CBC #### [address] Monocytes/100 WBC (Bld) 5.2 % Normal . [facility] Comment on above: Performed By: #### E ODALIS CMP, CBC #### [place] [address] [place] Neutrophils (Bld) [#/Vol] 3.3 10*3/uL Normal 1.8-7.7 [facility] Comment on above: Performed By: #### E ODALIS CMP, CBC #### [place] [address] [place] Neutrophils/100 WBC (Bld) 53.1 % Normal . [facility] Comment on above: Performed By: #### E ODALIS CMP, CBC #### [place] [address] [place] NRBC% 0.2 /100{WBC} Normal 0-0.5 [facility] Comment on above: Performed By: #### E TRIPP JACOBO, CBC #### [address] Platelet mean volume (Bld) [Entitic vol] 7.6 fL Normal 6.3-10.7 [facility] Comment on above: Performed By: #### E TRIPP JACOBO, CBC #### [address] Platelets (Bld) [#/Vol] 183 10*3/uL Normal 150-450 [facility] Comment on above: Performed By: #### E TRIPP JACOBO, CBC #### [address] RBC (Bld) [#/Vol] 4.13 10*6/uL Normal 3.60-5.00 [facility] Comment on above: Performed By: #### E TRIPP JACOBO, CBC #### [address] WBC (Bld) [#/Vol] 6.2 10*3/uL Normal 3.8-11.6 [facility] Comment on above: Performed By: #### E TRIPP JACOBO, CBC #### [address] Comprehensive Metabolic Pane mary beth 01-19-2023 Albumin [Mass/Vol] 4.4 g/dL Normal 3.5-5.7 [facility] Comment on above: Performed By: #### E TRIPP JACOBO, CBC #### [address] Albumin/Globulin [Mass ratio] 1.2 {ratio} Normal [facility] Comment on above: Performed By: #### E TRIPP JACOBO, CBC #### [address] ALP [Catalytic activity/Vol] 87 U/L Normal 34-104 [facility] Comment on above: Performed By: #### E TRIPP JACOBO, CBC #### [facility] [address] [place] [address] [place] ALT [Catalytic activity/Vol] 142 U/L High 7-52 [facility] Comment on above: Performed By: #### E TRIPP JACOBO, CBC #### [facility] [address] [place] [address] [place] Anion gap [Moles/Vol] 15.6 mmol/L High 6.0-15.0 [facility] Comment on above: Performed By: #### E TRIPP JACOBO, CBC #### [facility] [address] [place] [id number] [facility] AST [Catalytic activity/Vol] 220 U/L High 13-39 [facility] Comment on above: Performed By: #### E TRIPP JACOBO, CBC #### [facility] [address] Bilirubin [Mass/Vol] 0.6 mg/dL Normal 0.3-1.0 [facility] Comment on above: Performed By: #### E TRIPP JACOBO, CBC #### [facility] [address] [place] [phone] [place] Calcium [Mass/Vol] 8.9 mg/dL Normal 8.6-10.3 [facility] Comment on above: Performed By: #### E TRIPP JACOBO, CBC #### [facility] [address] [place] [phone] [place] Chloride [Moles/Vol] 102 mmol/L Normal 98-107 [facility] Comment on above: Performed By: #### E TRIPP JACOBO, CBC #### [facility] [address] [place] [phone] [place] CO2 [Moles/Vol] 23.2 mmol/L Normal 21.0-31.0 [facility] Comment on above: Performed By: #### E TRIPP JACOBO, CBC #### [facility] [address] [place] [phone] [place] Creatinine [Mass/Vol] 0.60 mg/dL Normal 0.60-1.20 [facility] Comment on above: Performed By: #### E TRIPP JACOBO, CBC #### [facility] [address] [place] [address] [place] Creatinine Clr Calc Pharmacy 128.34 [facility] Comment on above: Performed By: #### E TRIPP JACOBO, CBC #### [facility] [address] [place] [address] [place] GFR/1.73 sq M.predicted MDRD (S/P/Bld) [Vol rate/Area] mL/min/{1.73_m2} [facility] Comment on above: Performed By: #### E TRIPP JACOBO, CBC #### [facility] [address] Globulin (S) [Mass/Vol] 3.7 g/dL [facility] Comment on above: Performed By: #### E TRIPP JACOBO, CBC #### [facility] [address] Glucose [Mass/Vol] 82 mg/dL Normal 70-100 [facility] Comment on above: Result Comment: [facility] Glucose Reference Range is dependent on time and content of last meal. Glucose of more than 200 mg/dL in a nonstressed, ambulatory subject supports the diagnosis of Diabetes Mellitus. ADA recommended reference range Performed By: #### E TRIPP JACOBO, CBC #### [facility] [address] Potassium [Moles/Vol] 3.8 mmol/L Normal 3.5-5.1 [facility] Comment on above: Performed By: #### E TRIPP JACOBO, CBC #### [facility] [address] Protein [Mass/Vol] 8.1 g/dL Normal 6.4-8.9 [facility] Comment on above: Performed By: #### E TRIPP JACOBO, CBC #### [facility] [address] Sodium [Moles/Vol] 137 mmol/L Normal 136-145 [facility] Comment on above: Performed By: #### E TRIPP JACOBO, CBC #### [facility] [address] Urea nitrogen [Mass/Vol] 13 mg/dL Normal 7-25 [facility] Comment on above: Performed By: #### E ODALIS, CMP, CBC #### [address] Creatinine [Mass/volume] in Serum or PlasmaOrdered By: Pavel Yao on 01-19-2023 Creatinine [Mass/Vol] 0.60 mg/dL 0.60-1.20 [facility] Dipstick and Microscopicon 1 03-22-2022 Appearance (U) Clear Normal Clear [facility] Comment on above: Order Comment: Name Collection Type:: Clean-Voided Midstream Performed By: #### H S TROP, CBC, DDIMER, PP, MG, BMP #### [address] Bacteria,Urine 1+ High None Seen [facility] Comment on above: Order Comment: Name Collection Type:: Clean-Voided Midstream Performed By: #### H S TROP, CBC, DDIMER, PP, MG, BMP #### [facility] [address] [place] [address] Bilirubin,Urine Negative Normal Negative [facility] Comment on above: Order Comment: Name Collection Type:: Clean-Voided Midstream Performed By: #### H S TROP, CBC, DDIMER, PP, MG, BMP #### [facility] [address] [place] [address] [place] Glucose Ql (U) Normal Normal Normal [facility] Comment on above: Order Comment: Name Collection Type:: Clean-Voided Midstream Performed By: #### H S TROP, CBC, DDIMER, PP, MG, BMP #### [place] [address] [place] Hyaline Casts,Urine 0-8 Normal 0-8 [facility] Comment on above: Order Comment: Name Collection Type:: Clean-Voided Midstream Performed By: #### H S TROP, CBC, DDIMER, PP, MG, BMP #### [address] Ketones Ql (U) Negative Normal Negative [facility] Comment on above: Order Comment: Name Collection Type:: Clean-Voided Midstream Performed By: #### H S TROP, CBC, DDIMER, PP, MG, BMP #### [address] Leukocyte esterase Test strip Ql (U) Negative Normal Negative [facility] Comment on above: Order Comment: Name Collection Type:: Clean-Voided Midstream Performed By: #### H S TROP, CBC, DDIMER, PP, MG, BMP #### [address] Nitrite,Urine Negative Normal Negative [facility] Comment on above: Order Comment: Name Collection Type:: Clean-Voided Midstream Performed By: #### H S TROP, CBC, DDIMER, PP, MG, BMP #### [address] Occult Blood,Urine Negative Normal Negative [facility] Comment on above: Order Comment: Name Collection Type:: Clean-Voided Midstream Performed By: #### H S TROP, CBC, DDIMER, PP, MG, BMP #### [address] Protein,Urine Trace High Negative [facility] Comment on above: Order Comment: Name Collection Type:: Clean-Voided Midstream Performed By: #### H S TROP, CBC, DDIMER, PP, MG, BMP #### [address] RBC LM.HPF (Urine sed) [#/Area] 0 /[HPF] Normal 0-4 [facility] Comment on above: Order Comment: Name Collection Type:: Clean-Voided Midstream Performed By: #### H S TROP, CBC, DDIMER, PP, MG, BMP #### [address] Specificy [place],Urine 1.025 Normal 1.001-1.030 [facility] Comment on above: Order Comment: Name Collection Type:: Clean-Voided Midstream Performed By: #### H S TROP, CBC, DDIMER, PP, MG, BMP #### [address] Squamous Epithelial Cell,Urine 1-2 Normal 0-2 [facility] Comment on above: Order Comment: Name Collection Type:: Clean-Voided Midstream Performed By: #### H S TROP, CBC, DDIMER, PP, MG, BMP #### [facility] [address] Urobilinogen,Urine Normal Normal Normal [facility] Comment on above: Order Comment: Name Collection Type:: Clean-Voided Midstream Performed By: #### H S TROP, CBC, DDIMER, PP, MG, BMP #### [address] WBC LM.HPF (Urine sed) [#/Area] 0 /[HPF] Normal 0-4 [facility] Comment on above: Order Comment: Name Collection Type:: Clean-Voided Midstream Performed By: #### H S TROP, CBC, DDIMER, PP, MG, BMP #### [address] ECG 12 lead ECGon 01-19-2023 ECG 12 lead ECG [facility] [address] [place] [address] [place] [address] Electrocardiograph Report Signed Patient: Lyle Flynn MR#: [id number] : 1990 Acct:[id number] Age/Sex: 33 / F ADM Date: 01/19/23 Loc: ER Room: Type: [facility] ER Attending Dr: Ordering Provider: Pavel Yao DO Date of Service: 01/19/2311/03/1045 ECG/ECG 12 lead ECG: Nausea/Vomiting/Diarrhea Copies to: Test Reason : Blood Pressure : 145/094 mmHG Vent. Rate : 075 BPM Atrial Rate : 075 BPM P-R Int : 162 ms QRS Dur : 080 ms QT Int : 390 ms P-R-T Axes : 071 092 052 degrees QTc Int : 435 ms Normal sinus rhythm Rightward axis Confirmed by Pavel YAO DO ([id number]) on 01/19/2023 12:17:21 PM Referred By: Electronically Signed By:Pavel YAO DO Transcribed By: MUS Signed By Pavel Yao DO 1 03/22/22 1217 Normal [facility] Eosinophils Auto (Bld) [#/Vo l]Ordered By: Pavel Yao on 01-19-2023 Eosinophils (Bld) [#/Vol] 0.1 10*3/uL 0.0-0.45 [facility] Eosinophils/100 WBC Auto (Bl d)Ordered By: Pavel Yao on 01-19-2023 Eosinophils/100 WBC (Bld) 0.9 % . [facility] Erythrocyte distribution wid th Auto (RBC) [Ratio]Ordered By: Pavel Yao on 01-19-2023 Erythrocyte distribution width (RBC) [Ratio] 13.2 % 11.9-15.3 [facility] Globulin Calc (S) [Mass/Vol] Ordered By: Pavel Yao on 01-19-2023 Globulin (S) [Mass/Vol] 3.7 g/dL [facility] Glucose [Mass/volume] in Ser um or PlasmaOrdered By: Pavel Yao on 01-19-2023 Glucose [Mass/Vol] 82 mg/dL 70-100 [facility] Comment on above: ADA recommended refe rence rangeRandom Glucose Reference Range is dependent on time and content of last meal. Glucose of more than 200 mg/dL in a nonstressed, ambulatory subject supports the diagnosis of Diabetes Mellitus. HCG ( test) IA.rapi d Ql (U)Ordered By: Pavel Yao on 01-19-2023 HCG ( test) Ql (U) Negative [facility] HCG,Urineon 01-19-2023 Beta HCG ( test) Ql (U) Negative Normal [facility] Comment on above: Order Comment: Name Collection Type:: Clean-Voided Midstream Result Comment: PERF ORMED BY: [address] [address] PATHOLOGIST FOOD AND BEVERAGE COORDINATOR LEE CARDOSO M.D. Performed By: #### H S TROP, CBC, DDIMER, PP, MG, BMP #### [facility] [address] [place], [place] [id number] [facility] Hematocrit Auto (Bld) [Volum e fraction]Ordered By: Pavel Yao on 01-19-2023 Hematocrit (Bld) [Volume fraction] 40.5 % 34.0-46.4 [facility] Hemoglobin [Mass/volume] in BloodOrdered By: Pavel Yao on 01-19-2023 Hemoglobin (Bld) [Mass/Vol] 14.2 g/dL 11.8-15.4 [facility] Ketones Auto test strip (U) [Mass/Vol]Ordered By: Pavel Yao on 01-19-2023 Ketones (U) [Mass/Vol] Negative Negative [facility] Laboratory - UrinalysisOrder ed By: Pavel Yao on 01-19-2023 Hyaline casts LM Ql (Urine sed) 0-8 [LPF] 0-8 [facility] Leukocytes [#/volume] correc jose for nucleated erythrocytes in Blood by Automated counOrdered By: Pavel Yao on 01-19-2023 WBC corrected for nucl RBC Auto (Bld) [#/Vol] 6.2 10*3/uL 3.8-11.6 [facility] Lipaseon 01-19-2023 Lipase [Catalytic activity/Vol] 53.0 U/L Normal 11.0-82.0 [facility] Comment on above: Result Comment: PERF ORMED BY: [place] [address] PATHOLOGIST FOOD AND BEVERAGE COORDINATOR LEE CARDOSO M.D. Performed By: #### E ODALIS, CMP, CBC #### [facility] [address] [place] [address] Lipase [Enzymatic activity/v olume] in Serum or PlasmaOrdered By: Pavel Yao on 01-19-2023 Lipase [Catalytic activity/Vol] 53.0 U/L 11.0-82.0 [facility] Lymphocytes Auto (Bld) [#/Vo l]Ordered By: Pavel Yao on 01-19-2023 Lymphocytes (Bld) [#/Vol] 2.4 10*3/uL 1.00-4.8 [facility] Lymphocytes/100 WBC Auto (Bl d)Ordered By: Pavel Yao on 01-19-2023 Lymphocytes/100 WBC (Bld) 39.8 % . [facility] MCH Auto (RBC) [Entitic mass ]Ordered By: Pavel Yao on 01-19-2023 MCH (RBC) [Entitic mass] 34.3 pg 24.7-34.3 [facility] MCHC Auto (RBC) [Mass/Vol]Or dered By: Pavel Yao on 01-19-2023 MCHC (RBC) [Mass/Vol] 35.0 g/dL 32.0-35.0 [facility] MCV Auto (RBC) [Entitic vol] Ordered By: Pavel Yao on 01-19-2023 MCV (RBC) [Entitic vol] 97.9 fL 80-100 [facility] Monocyte distribution width [Entitic volume] in Blood by AutomatedOrdered By: Pavel Yao on 01-19-2023 Monocyte distribution width Auto (Bld) [Entitic vol] 14.57 % 0.00-20.00 [facility] Monocytes Auto (Bld) [#/Vol] Ordered By: Pavel Yao on 01-19-2023 Monocytes (Bld) [#/Vol] 0.3 10*3/uL 0.0-0.8 [facility] Monocytes/100 WBC Auto (Bld) Ordered By: Pavel Yao on 01-19-2023 Monocytes/100 WBC (Bld) 5.2 % . [facility] Neutrophils Auto (Bld) [#/Vo l]Ordered By: Pavel Yao on 01-19-2023 Neutrophils (Bld) [#/Vol] 3.3 10*3/uL 1.8-7.7 [facility] Neutrophils/100 WBC Auto (Bl d)Ordered By: Pavel Yao on 01-19-2023 Neutrophils/100 WBC (Bld) 53.1 % . [facility] Nitrite Test strip Ql (U)Ord ered By: Pavel Yao on 01-19-2023 Nitrite Ql (U) Negative Negative [facility] No Panel InformationOrdered By: Pavel Yao on 01-19-2023 Estimated GFR (CKD-EPI) > 60.0 mL/Min [facility] Creatinine Clearance (Chem 128.34 [facility] Nucleated erythrocytes [Pres ence] in Blood by Automated countOrdered By: Pavel Yao on 01-19-2023 Nucleated RBC Auto Ql (Bld) 0.2 /100{WBC} 0-0.5 [facility] Platelet mean volume Auto (B ld) [Entitic vol]Ordered By: Pavel Yao on 01-19-2023 Platelet mean volume (Bld) [Entitic vol] 7.6 fL 6.3-10.7 [facility] Platelets Auto (Bld) [#/Vol] Ordered By: Pavel Yao on 01-19-2023 Platelets (Bld) [#/Vol] 183 10*3/uL 150-450 [facility] Potassium [Moles/volume] in Serum or PlasmaOrdered By: Pavel Yao on 01-19-2023 Potassium [Moles/Vol] 3.8 mmol/L 3.5-5.1 [facility] Protein Auto test strip (U) [Mass/Vol]Ordered By: Pavel Yao on 01-19-2023 Protein (U) [Mass/Vol] Trace mg/dL Negative [facility] Protein [Mass/volume] in Ser um or PlasmaOrdered By: Pavel Yao on 01-19-2023 Protein [Mass/Vol] 8.1 g/dL 6.4-8.9 [facility] RBC Auto (Bld) [#/Vol]Ordere d By: Pavel Yao on 01-19-2023 RBC (Bld) [#/Vol] 4.13 10*6/uL 3.60-5.00 [facility] Serum or plasma albumin/glob ulin mass ratioOrdered By: Pavel Yao on 01-19-2023 Albumin/Globulin [Mass ratio] 1.2 {ratio} [facility] Serum or plasma anion gap de terminationOrdered By: Pavel Yao on 01-19-2023 Anion gap [Moles/Vol] 15.6 mmol/L 6.0-15.0 [facility] Sodium [Moles/volume] in Ser um or PlasmaOrdered By: Pavel Yao on 01-19-2023 Sodium [Moles/Vol] 137 mmol/L 136-145 [facility] Specific gravity Auto test s trip (U) [Rel density]Ordered By: Pavel Yao on 01-19-2023 Specific gravity (U) [Rel density] 1.025 1.001-1.030 [facility] Squamous epithelial cells de tection in urine sediment by light microscopyOrdered By: Pavel Yao on 01-19-2023 Epithelial cells.squamous LM Ql (Urine sed) 1-2 [HPF] 0-2 [facility] Urea nitrogen [Mass/volume] in Serum or PlasmaOrdered By: Pavel Yao on 01-19-2023 Urea nitrogen [Mass/Vol] 13 mg/dL 7-25 [facility] Urine bacteria detection by automated methodOrdered By: Pavel Yao on 01-19-2023 Bacteria Auto Ql (U) 1+ None Seen [facility] Urine clarity by refractomet ry automatedOrdered By: Pavel Yao on 01-19-2023 Clarity Refractometry automated (U) Clear Clear [facility] Urine glucose measurement by automated test strip (mass/volume)Ordered By: Pavel Yao on 01-19-2023 Glucose Auto test strip (U) [Mass/Vol] Normal mg/dL Normal [facility] Urine hemoglobin detection b y automated test stripOrdered By: Pavel Yao on 01-19-2023 Hemoglobin Auto test strip Ql (U) Negative Negative [facility] Urine leukocyte esterase det ection by automated test stripOrdered By: Pavel Yao on 01-19-2023 Leukocyte esterase Auto test strip Ql (U) Negative Negative [facility] Urine pH measurement by auto mated test stripOrdered By: Pavel Yao on 01-19-2023 pH (U) 6.5 [pH] 5.0-9.0 [facility] Comment on above: Order Comment: Name Collection Type:: Clean-Voided Midstream Performed By: #### H S TROP, CBC, DDIMER, PP, MG, BMP #### [address] Urobilinogen Auto test strip (U) [Mass/Vol]Ordered By: Pavel Yao on 01-19-2023 Urobilinogen (U) [Mass/Vol] Normal mg/dL Normal [facility] WBC Auto (Bld) [#/Vol]Ordere d By: Pavel Yao on 01-19-2023 WBC (Bld) [#/Vol] 6.2 10*3/uL 3.8-11.6 [facility] Neurology Forms- [employer] Neurology Forms- Text [id number]#1.00TIF F Normal [facility] EEGon 01-12-2023 EEG Normal [facility] Comment on above: Result Comment: Elec tronically Signed By: Francisco Cruz MD\.br\Date and Time Signed: 01/12/23 08:10 EST Discharge Instructionson Discharge Instructions [id number]#1.00TI FF [facility] Insurance Correspondence Off 01-08-2023 Insurance Correspondence Office [id number]#1.00T IFF Normal [facility] Progress Note-Nurseon 2022 Progress Note-Nurse [id number]#1.00TI FF [facility] Consent for Treatmenton 12-13 Consent for Treatment [id number]#1.00TI FF [facility] Discharge Instructionson Discharge Instructions [id number]#1.00TI FF Normal [facility] ED Clinical Summaryon 2022 ED Clinical Summary Normal [facility] ED Note-Physicianon 01-08-20 ED Note-Physician Normal [facility] Comment on above: Result Comment: Elec tronically Signed By: Darren Guzman DO\.br\Date and Time Signed: 01/07/23 00:23 EST ED Patient Education Noteon 01-07-2023 ED Patient Education Note Normal [facility] ED Patient Summaryon 023 ED Patient Summary Normal [facility] Insurance Correspondence Off iceon 01-07-2023 Insurance Correspondence Office [id number]#1.00TI FF Normal [facility] Pre-Arrival Noteon 3 Pre-Arrival Note Normal [facility] BMPon 01-06-2023 Anion gap [Moles/Vol] 11 mmol/L Normal 6-16 [facility] Comment on above: Performed By: #### 2 827805, 82921331, 48131242, 1332134, 4657563, 1769875 ####[facility] [address] [place] [address] Calcium [Mass/Vol] 8.6 mg/dL Low 8.9-11.1 [facility] Comment on above: Performed By: #### 2 774862, 61474316, 43565956, 5211132, 8633530, 8648193 ####[facility] [address] [place] [address] Chloride [Moles/Vol] 106 mmol/L Normal 101-111 [facility] Comment on above: Performed By: #### 2 781667, 35724998, 97395595, 1893633, 4069911, 3870478 ####[facility] [address] [address] CO2 [Moles/Vol] 21 mmol/L Normal 21-31 [facility] Comment on above: Performed By: #### 2 965580, 42204826, 53128583, 3161006, 4643382, 5886048 ####[facility] [address] [place] [address] Creatinine [Mass/Vol] 0.5 mg/dL Normal 0.5-1.3 [facility] Comment on above: Performed By: #### 2 222964, 93859773, 66104950, 2246967, 7740926, 0023590 ####[facility] [address] [place] [address] Glucose [Mass/Vol] 87 mg/dL Normal 55-199 [facility] Comment on above: Result Comment: If t his glucose result represents a fasting glucose, interpretation should refer to the following reference range: 55-99 mg/dL Performed By: #### 2 040267, 63769956, 96852553, 1541135, 2436362, 2375668 ####[facility] [address] [place] [address] Potassium [Moles/Vol] 4.2 mmol/L Normal 3.5-5.3 [facility] Comment on above: Performed By: #### 2 727936, 58150436, 49327928, 1790069, 5376833, 7328241 ####[facility] [address] [place] [address] Sodium [Moles/Vol] 134 mmol/L Low 135-145 [facility] Comment on above: Performed By: #### 2 985596, 29108942, 93779993, 2821484, 2491613, 6283122 ####[facility] [address] [place] [address] Urea nitrogen [Mass/Vol] 11 mg/dL Normal 5-21 [facility] Comment on above: Performed By: #### 2 315666, 35901995, 09981592, 3368298, 0377279, 4157550 ####[facility] [address] [place] [address] Urea nitrogen/Creatinine [Mass ratio] 22 No Units High 10-20 [facility] Comment on above: Performed By: #### 2 463414, 07232576, 67274917, 9018122, 3279467, 2068783 ####[facility] [address] [place] [address] CHEMISTRYOrdered By: SYSTEM SYSTEM on 01-06-2023 Albumin [Mass/Vol] 3.5 g/dL Normal 3.3 - 5.0 gm/dL [facility] Albumin/Globulin [Mass ratio] 1.0 {ratio} Low 1.1 - 2.2 [facility] ALP [Catalytic activity/Vol] 86 [iU]/d Normal 21 - 98 Int._Unit/L [facility] ALT No additional P-5'-P [Catalytic activity/Vol] 142 [iU]/d High 6 - 46 Int._Unit/L [facility] Anion gap [Moles/Vol] 11 mmol/L Normal 6 - 16 mEq/L [facility] AST [Catalytic activity/Vol] 239 [iU]/d High 5 - 43 Int._Unit/L [facility] Bilirubin [Mass/Vol] 1.1 mg/dL Normal 0.0 - 1 .1 mg/dL [facility] Bilirubin.direct [Mass/Vol] 0.3 mg/dL Normal 0.1 - 0.4 mg/dL [facility] Bilirubin.indirect [Mass or moles/Vol] 0.8 mg/dL Normal 0.1 - 0.9 mg/dL [facility] Calcium [Mass/Vol] 8.6 mg/dL Low 8.9 - 11. 1 mg/dL [facility] Chloride [Moles/Vol] 106 mmol/L Normal 101 - 1 11 mmol/L [facility] CO2 [Moles/Vol] 21 mmol/L Normal 21 - 31 mmol/L [facility] Creatinine [Mass/Vol] 0.5 mg/dL Normal 0.5 - 1.3 mg/dL [facility] Free T4 [Mass/Vol] 0.80 ng/dL Normal 0.58 - 1. 64 ng/dL [facility] GFR/1.73 sq M.predicted among non-blacks MDRD (S/P/Bld) [Vol rate/Area] 129 mL/min/1.73 m2 Normal >=59mL/min/1 .73 m2 [facility] Comment on above: Interpretive Data: C hronic kidney disease could be indicated at eGFR's of less than 60 mL/min/1.73m2. Kidney failure is indicated at less than 15 mL/min/1.73m2. Globulin (S) [Mass/Vol] 3.6 g/dL Normal 1.4 - 4.0 gm/dL [facility] Glucose [Mass/Vol] 87 mg/dL Normal 55 - 199 mg/dL [facility] Comment on above: Interpretive Data: I f this glucose result represents a fasting glucose, interpretation should refer to the following reference range: 55-99 mg/dL Potassium [Moles/Vol] 4.2 mmol/L Normal 3.5 - 5.3 mmol/L [facility] Protein [Mass/Vol] 7.1 g/dL Normal 6.0 - 7.8 gm/dL [facility] Sodium [Moles/Vol] 134 mmol/L Low 135 - 145 mmol/L [facility] TSH Qn 5.89 m[IU]/L High 0.34 - 5.60 mcIU/mL [facility] Urea nitrogen [Mass/Vol] 11 mg/dL Normal 5 - 21 mg/dL [facility] Urea nitrogen/Creatinine [Mass ratio] 22 mg/mg High 10 - 20 [facility] Free T4on 01-06-2023 Free T4 [Mass/Vol] 0.80 ng/dL Normal 0.58-1.64 [facility] Comment on above: Order Comment: Free T4 added by Discern Rule due to a TSH result of <0.34 or >5.60. Performed By: #### 2 475756, 27045758, 53832225, 5781396, 1872678, 5765720 ####[facility] [address] [place] [address] HEMATOLOGYOrdered By: Marlyn Villa on 01-06-2023 Platelets (Bld) [#/Vol] 116.0 E9/L Low 150.0 - 500.0 E9/L [facility] Heme[facility] Hep Func Panelon 01-06-2023 Albumin [Mass/Vol] 3.5 g/dL Normal 3.3-5.0 [facility] Comment on above: Performed By: #### 2 413067, 97581581, 02319215, 6000513, 7278560, 5993164 ####[facility] [address] [place] [address] Albumin/Globulin (S) [Mass conc ratio] 1.0 Low 1.1-2.2 [facility] Comment on above: Performed By: #### 2 485660, 96178124, 32195062, 2711020, 7718725, 5377298 ####[facility] [address] [place], [place] [address] ALP [Catalytic activity/Vol] 86 Int._Unit/L Normal 21-98 [facility] Comment on above: Performed By: #### 2 191653, 18727337, 12770401, 5066763, 7056584, 3562489 ####[facility] [address] [place] [address] ALT No additional P-5'-P [Catalytic activity/Vol] 142 Int._Unit/L High 6-46 [facility] Comment on above: Performed By: #### 2 052376, 51259477, 64366814, 1562874, 7378426, 3122962 ####[place] [address] AST [Catalytic activity/Vol] 239 Int._Unit/L High 5-43 [facility] Comment on above: Performed By: #### 2 441046, 50733152, 17996337, 3984346, 0144832, 0011837 ####[facility] [address] [place], [place] [address] Bilirubin [Mass/Vol] 1.1 mg/dL Normal 0.0-1.1 [facility] Comment on above: Performed By: #### 2 751046, 55467561, 12609927, 4068509, 3355431, 0770078 ####[place] [address] Bilirubin.direct [Mass/Vol] 0.3 mg/dL Normal 0.1-0.4 [facility] Comment on above: Performed By: #### 2 815895, 29566022, 60783472, 3278173, 7340755, 4612847 ####[address] [address] Bilirubin.indirect [Mass or moles/Vol] 0.8 mg/dL Normal 0.1-0.9 [facility] Comment on above: Performed By: #### 2 596283, 15404209, 92743551, 0188666, 1655162, 3367456 ####[facility] [address] [place] [address] Globulin (S) [Mass/Vol] 3.6 g/dL Normal 1.4-4.0 [facility] Comment on above: Performed By: #### 2 359049, 03655606, 50536677, 6778544, 7470499, 1382314 ####[facility] [address] [place] [address] Protein [Mass/Vol] 7.1 g/dL Normal 6.0-7.8 [facility] Comment on above: Performed By: #### 2 081785, 40665390, 42924505, 1139074, 4958210, 3563930 ####[facility] [address] [place] [address] Inpatient Clinical Summaryon 01-06-2023 Inpatient Clinical Summary Normal [facility] Inpatient Patient Summaryon 01-06-2023 Inpatient Patient Summary Normal [facility] Inpatient Patient Summary Normal [facility] Interdisciplinary Note - Alonso e Manageron 01-06-2023 Interdisciplinary Note - High Climber Per nursing and hospitalist. Mother will be transporting pt home at 230 today. LVM for mom. Pt denied rehab services. CRM spoke to mother and pt, mother is agreeable to taking pt into her custody and care. Ari RN witnessed conversation. Normal [facility] Comment on above: Result Comment: Elec tronically Signed By: Marlyn Echols\Date and Time Signed: 01/06/23 14:35 EST Monitor Recordon 01-06-2023 Monitor Record [id number] FF Normal [facility] Monitor Record [id number]#1.00TI FF Normal [facility] Platelet Counton 01-06-2023 Platelets (Bld) [#/Vol] 116.0 E9/L Low 150.0-500.0 [facility] Comment on above: Performed By: #### 2 207441, 16328931, 16840942, 3405415, 2188665, 6941875 ####[facility] [address] [place] [address] Progress Note-Nurseon 2022 Progress Note-Nurse Normal [facility] Progress Note-Nurse Normal [facility] Progress Note-Physicianon Progress Note-Physician Normal [facility] Comment on above: Result Comment: Elec tronically Signed By: Awa BAUTISTA, Bekah A\.br\Date and Time Signed: 01/06/23 07:04 EST\.br\Electronically Co-Signed By: Francisco Cruz MD\.br\Date and Time Co-Signed: 01/06/23 09:26 EST TSH With T4fr Reflexon 01-06 TSH Qn 5.89 m[IU]/L High 0.34-5.60 [facility] Comment on above: Performed By: #### 2 963223, 49824638, 92533367, 0487237, 4357724, 4344152 ####[facility] [address] [place] [address] eGFRon 01-06-2023 GFR/1.73 sq M.predicted among non-blacks MDRD (S/P/Bld) [Vol rate/Area] 129 mL/min/1.73 m2 Normal >=59 [facility] Comment on above: Order Comment: Order added by Discern Expert. Result Comment: Surveillance Sensor Officer justin kidney disease could be indicated at eGFR's of less than 60 mL/min/1.73m2. Kidney failure is indicated at less than 15 mL/min/1.73m2. Performed By: #### 2 169739, 93698452, 78868465, 2713560, 7150710, 1226405 ####[facility] [address] [place] [address] Auto Diffon 2023 Basophils/100 WBC (Bld) 1.3 % Normal 0.0-2.0 [facility] Comment on above: Order Comment: Order Added by Discern Expert. Performed By: #### 2 170645, 7008998, 96981421, 5961058, 7327548, 7727591, 9170016 ####[address] [place] [address] Basophils/Leukocytes Auto (Bld) [Pure # fraction] 0.1 E9/L Normal 0.0-0.2 [facility] Comment on above: Order Comment: Order Added by Discern Expert. Performed By: #### 2 131888, 1135641, 28301270, 6296185, 6640227, 3384171, 6351119 ####[address] [place] [address] Eosinophils/100 WBC (Bld) 1.8 % Normal 0.0-8.0 [facility] Comment on above: Order Comment: Order Added by Discern Expert. Performed By: #### 2 368356, 4932930, 20151055, 6178589, 4737861, 2190288, 5164534 ####[address] [address] Eosinophils/Leukocyte s Auto (Bld) [Pure # fraction] 0.1 E9/L Normal 0.0-0.5 [facility] Comment on above: Order Comment: Order Added by Discern Expert. Performed By: #### 2 980914, 3472902, 69003118, 0295495, 0672574, 1747082, 3183142 ####[address] [address] Lymphocytes/100 WBC (Bld) 46.8 % Normal 14.0-50.0 [facility] Comment on above: Order Comment: Order Added by Discern Expert. Performed By: #### 2 395638, 8160440, 89966063, 3757444, 0617317, 3662005, 7701567 ####[address] [place] [address] Lymphocytes/Leukocyte s Auto (Bld) [Pure # fraction] 2.6 E9/L Normal 1.0-4.0 [facility] Comment on above: Order Comment: Order Added by Discern Expert. Performed By: #### 2 692560, 8611362, 13396188, 8407920, 2404691, 5021901, 1196632 ####[address] [place] [address] Monocytes/100 WBC (Bld) 5.4 % Normal 4.0-14.0 [facility] Comment on above: Order Comment: Order Added by Discern Expert. Performed By: #### 2 538761, 2579088, 04253920, 4445347, 8861830, 4703089, 4229012 ####[address] [place] [address] Monocytes/Leukocytes Auto (Bld) [Pure # fraction] 0.3 E9/L Normal 0.2-1.0 [facility] Comment on above: Order Comment: Order Added by Discern Expert. Performed By: #### 2 527279, 8959285, 83821633, 6896866, 9312340, 3054090, 2793656 ####[address] [address] Neutrophils/100 WBC (Bld) 44.7 % Normal 36.0-75.0 [facility] Comment on above: Order Comment: Order Added by Discern Expert. Performed By: #### 2 263024, 8866095, 12631563, 9325256, 2607389, 0140801, 0893239 ####[address] [place] [address] Neutrophils/Leukocyte s Auto (Bld) [Pure # fraction] 2.5 E9/L Normal 2.0-7.5 [facility] Comment on above: Order Comment: Order Added by Discern Expert. Performed By: #### 2 557851, 2710578, 86456377, 2913748, 6743351, 9487056, 8581095 ####[address] [place] [address] Basophils/100 WBC (Bld) 0.7 % Normal 0.0-2.0 [facility] Comment on above: Order Comment: Order Added by Discern Expert. Performed By: #### 1 8635104, 0656663, 48827072, 5411384, 0020397, 9386294, 83892789 ####[address] [place] [address] Basophils/Leukocytes Auto (Bld) [Pure # fraction] 0.1 E9/L Normal 0.0-0.2 [facility] Comment on above: Order Comment: Order Added by Discern Expert. Performed By: #### 1 6047195, 0954163, 59428870, 0510394, 1564762, 7815343, 21294129 ####[address] [place] [address] Eosinophils/100 WBC (Bld) 1.2 % Normal 0.0-8.0 [facility] Comment on above: Order Comment: Order Added by Discern Expert. Performed By: #### 1 5021260, 7946389, 35298534, 7618745, 8781780, 1111894, 75606061 ####[address] [address] Eosinophils/Leukocyte s Auto (Bld) [Pure # fraction] 0.1 E9/L Normal 0.0-0.5 [facility] Comment on above: Order Comment: Order Added by Radha Expert. Performed By: #### 1 9176107, 8973499, 06322823, 9462097, 2758542, 8981206, 98665847 ####[address] [address] Lymphocytes/100 WBC (Bld) 40.2 % Normal 14.0-50.0 [facility] Comment on above: Order Comment: Order Added by Discern Expert. Performed By: #### 1 6772279, 6277338, 45194102, 9134190, 9407528, 5337167, 60599149 ####[address] [place] [address] Lymphocytes/Leukocyte s Auto (Bld) [Pure # fraction] 4.1 E9/L High 1.0-4.0 [facility] Comment on above: Order Comment: Order Added by Discern Expert. Performed By: #### 1 0283405, 6259947, 03809514, 1638926, 8686141, 1308126, 33751852 ####[address] [place] [address] Monocytes/100 WBC (Bld) 4.6 % Normal 4.0-14.0 [facility] Comment on above: Order Comment: Order Added by Discern Expert. Performed By: #### 1 5124546, 9247777, 83128451, 6269843, 1100572, 5171390, 76152099 ####[facility] [address] [place] [address] Monocytes/Leukocytes Auto (Bld) [Pure # fraction] 0.5 E9/L Normal 0.2-1.0 [facility] Comment on above: Order Comment: Order Added by Radha Expert. Performed By: #### 1 8301692, 3582330, 18177265, 4763593, 2612910, 4410583, 16605285 ####[address] [address] Neutrophils/100 WBC (Bld) 53.3 % Normal 36.0-75.0 [facility] Comment on above: Order Comment: Order Added by Discern Expert. Performed By: #### 1 1289522, 0511794, 21119828, 3288403, 3971350, 0096089, 81014435 ####[address] [place] [address] Neutrophils/Leukocyte s Auto (Bld) [Pure # fraction] 5.5 E9/L Normal 2.0-7.5 [facility] Comment on above: Order Comment: Order Added by Discern Expert. Performed By: #### 1 4142263, 9939029, 44601304, 3042120, 2061966, 1041518, 99029007 ####[address] [place] [address] B hCG Qualon 2023 Beta HCG ( test) Ql Negative Normal [facility] Comment on above: Performed By: #### 2 4082547 ####[facility] [address] [place] [address] BMPon 2023 Creatinine [Mass/Vol] 0.7 mg/dL Normal 0.5-1.3 [facility] Comment on above: Performed By: #### 2 249192, 6379902, 10584860, 4884086, 9329364, 7074974, 2266617 ####[facility] [address] [place] [address] Urea nitrogen [Mass/Vol] 15 mg/dL Normal 5-21 [facility] Comment on above: Performed By: #### 2 389301, 5660158, 65474967, 9570606, 8112776, 9769651, 6738447 ####[facility] [address] [place] [address] Urea nitrogen/Creatinine [Mass ratio] 21 No Units High 10-20 [facility] Comment on above: Performed By: #### 2 559242, 4262515, 58174241, 2153454, 1868015, 2438043, 6255363 ####[facility] [address] [place] [address] Anion gap [Moles/Vol] 13 mmol/L Normal 6-16 [facility] Comment on above: Performed By: #### 2 384302, 2368480, 27194618, 2462968, 8923926, 5955153, 8487064 ####[facility] [address] [place] [address] Calcium [Mass/Vol] 8.3 mg/dL Low 8.9-11.1 [facility] Comment on above: Performed By: #### 2 896524, 0812383, 82542186, 0300322, 9593739, 9197923, 1472765 ####[facility] [address] [place] [address] Chloride [Moles/Vol] 107 mmol/L Normal 101-111 [facility] Comment on above: Performed By: #### 2 525753, 0905920, 01075521, 6579845, 0350800, 6899752, 9813159 ####[facility] [address] [place] [address] CO2 [Moles/Vol] 22 mmol/L Normal 21-31 [facility] Comment on above: Performed By: #### 2 089770, 9699195, 23294624, 6981876, 1568415, 2705099, 3736251 ####[facility] [address] [place] [address] Glucose [Mass/Vol] 93 mg/dL Normal 55-199 [facility] Comment on above: Result Comment: If t his glucose result represents a fasting glucose, interpretation should refer to the following reference range: 55-99 mg/dL Performed By: #### 2 874079, 8939999, 89931356, 9659437, 7555312, 0508196, 9014128 ####[facility] [address] [place] [address] Potassium [Moles/Vol] 3.8 mmol/L Normal 3.5-5.3 [facility] Comment on above: Performed By: #### 2 044976, 4996898, 37705055, 5183699, 1747658, 9195269, 7549243 ####[facility] [address] [place] [address] Sodium [Moles/Vol] 138 mmol/L Normal 135-145 [facility] Comment on above: Performed By: #### 2 751181, 3928637, 20253127, 0398884, 0657820, 8114943, 0386789 ####[facility] [address] [place] [address] Creatinine [Mass/Vol] 0.8 mg/dL Normal 0.5-1.3 [facility] Comment on above: Performed By: #### 1 5714170, 7547657, 65573497, 7376995, 2413088, 9655503, 94345103 ####[facility] [address] [place] [address] Urea nitrogen [Mass/Vol] 13 mg/dL Normal 5-21 [facility] Comment on above: Performed By: #### 1 4591832, 0655661, 05810543, 5987271, 8263476, 3796294, 04916272 ####[facility] [address] [place] [address] Urea nitrogen/Creatinine [Mass ratio] 16 No Units Normal 10-20 [facility] Comment on above: Performed By: #### 1 4764650, 2341110, 84942225, 8121256, 8135799, 1291448, 10491956 ####[facility] [address] [place] [address] Anion gap [Moles/Vol] 13 mmol/L Normal 6-16 [facility] Comment on above: Performed By: #### 1 5547595, 7989856, 00072918, 5524827, 3115711, 6657497, 55535923 ####[facility] [address] [place] [address] Calcium [Mass/Vol] 8.6 mg/dL Low 8.9-11.1 [facility] Comment on above: Performed By: #### 1 8887664, 7304245, 93780999, 8794742, 0857654, 4040755, 25479198 ####[facility] [address] [place] [address] Chloride [Moles/Vol] 106 mmol/L Normal 101-111 [facility] Comment on above: Performed By: #### 1 3108264, 8575440, 44818894, 5074617, 5147976, 3610879, 21941170 ####[facility] [address] [place] [address] CO2 [Moles/Vol] 23 mmol/L Normal 21-31 [facility] Comment on above: Performed By: #### 1 7576047, 0012512, 71574613, 1565358, 5110734, 3860456, 92513834 ####[facility] [address] [place] [address] Glucose [Mass/Vol] 91 mg/dL Normal 55-199 [facility] Comment on above: Result Comment: If t his glucose result represents a fasting glucose, interpretation should refer to the following reference range: 55-99 mg/dL Performed By: #### 1 1869936, 1932440, 08576431, 2719286, 2032790, 1020447, 16552886 ####[facility] [address] [place] [address] Potassium [Moles/Vol] 3.8 mmol/L Normal 3.5-5.3 [facility] Comment on above: Performed By: #### 1 4611383, 6003122, 29527770, 1824114, 9498018, 0168744, 64234349 ####[facility] [address] [place] [address] Sodium [Moles/Vol] 138 mmol/L Normal 135-145 [facility] Comment on above: Performed By: #### 1 5099603, 7330623, 12208469, 7926267, 8189275, 0450893, 91680480 ####[facility] [address] [place] [address] CBC w/ Auto Diffon Erythrocyte distribution width (RBC) [Ratio] 12.8 % Normal 10.9-14.2 [facility] Comment on above: Performed By: #### 2 779279, 3410538, 17274891, 2214042, 7226284, 1445304, 2831560 ####[facility] [address] [place] [address] Hematocrit (Bld) [Volume fraction] 39.6 % Normal 34.0-46.0 [facility] Comment on above: Performed By: #### 2 731605, 3079957, 17776113, 6898573, 6248490, 3931710, 2059122 ####[facility] [address] [place] [address] Hemoglobin (Bld) [Mass/Vol] 13.7 g/dL Normal 12.0-16.0 [facility] Comment on above: Performed By: #### 2 854459, 4285686, 31383428, 6709041, 5768242, 8366858, 9740428 ####[facility] [address] [place] [address] MCH (RBC) [Entitic mass] 33.8 pg Normal 27.0-34.0 [facility] Comment on above: Performed By: #### 2 291535, 7526256, 86079857, 7586417, 7089430, 6447896, 6242533 ####[facility] [address] [place] [address] MCHC (RBC) [Mass/Vol] 34.5 g/dL Normal 31.4-36.0 [facility] Comment on above: Performed By: #### 2 663444, 9598018, 23520204, 8561713, 8311501, 9115158, 0060597 ####[address] [address] MCV (RBC) [Entitic vol] 98.0 fL Normal 80.0-100.0 [facility] Comment on above: Performed By: #### 2 776507, 0436874, 82392261, 7044875, 4469969, 7833350, 4588413 ####[address] [address] Platelet mean volume (Bld) [Entitic vol] 8.8 fL Normal 6.4-10.8 [facility] Comment on above: Performed By: #### 2 700270, 8852715, 14828937, 7305691, 8912534, 5697525, 6437908 ####[address] [place] [address] Platelets (Bld) [#/Vol] 124.0 E9/L Low 150.0-500.0 [facility] Comment on above: Performed By: #### 2 987266, 5140561, 57793715, 4670701, 4060357, 2280852, 4985702 ####[facility] [address] [place] [address] RBC (Bld) [#/Vol] 4.0 E12/L Low 4.3-5.9 [facility] Comment on above: Performed By: #### 2 190469, 8870462, 66985038, 0204077, 1067302, 5981954, 6657818 ####[address] [place] [address] WBC corrected for nucl RBC Auto (Bld) [#/Vol] 5.6 E9/L Normal 4.0-11.0 [facility] Comment on above: Performed By: #### 2 529136, 2361199, 23764874, 3720254, 9610947, 3392321, 5568700 ####[address] Erythrocyte distribution width (RBC) [Ratio] 13.3 % Normal 10.9-14.2 [facility] Comment on above: Performed By: #### 1 3218245, 7665509, 75393182, 0870442, 5028030, 8287319, 43466153 ####[address] [address] Hematocrit (Bld) [Volume fraction] 44.7 % Normal 34.0-46.0 [facility] Comment on above: Performed By: #### 1 7627695, 1848832, 73843900, 0658346, 3061860, 0415246, 95992676 ####[address] [place] [address] Hemoglobin (Bld) [Mass/Vol] 15.6 g/dL Normal 12.0-16.0 [facility] Comment on above: Performed By: #### 1 7188493, 9214066, 43203666, 9242241, 0714885, 4034034, 75804195 ####[address] [address] MCH (RBC) [Entitic mass] 34.3 pg High 27.0-34.0 [facility] Comment on above: Performed By: #### 1 1781043, 2085110, 97769976, 9144846, 0180805, 2180974, 60027040 ####[facility] [address] [place] [address] MCHC (RBC) [Mass/Vol] 34.9 g/dL Normal 31.4-36.0 [facility] Comment on above: Performed By: #### 1 9740022, 0252225, 39578974, 1586613, 0498568, 9039607, 45883590 ####[address] [place] [address] MCV (RBC) [Entitic vol] 98.4 fL Normal 80.0-100.0 [facility] Comment on above: Performed By: #### 1 9615319, 3625064, 01010155, 5387710, 9951053, 1724004, 42493386 ####[facility] [address] [place] [address] Platelet mean volume (Bld) [Entitic vol] 9.1 fL Normal 6.4-10.8 [facility] Comment on above: Performed By: #### 1 6062328, 4148915, 92937846, 3292694, 4105844, 4218583, 09201353 ####[address] [place] [address] Platelets (Bld) [#/Vol] 197.0 E9/L Normal 150.0-500.0 [facility] Comment on above: Performed By: #### 1 6581227, 0117818, 22088523, 4366429, 6898197, 0956171, 99502622 ####[facility] [address] [place] [address] RBC (Bld) [#/Vol] 4.5 E12/L Normal 4.3-5.9 [facility] Comment on above: Performed By: #### 1 0127713, 1119652, 96246723, 2937004, 2901605, 1759111, 18493996 ####[facility] [address] [place] [address] WBC corrected for nucl RBC Auto (Bld) [#/Vol] 10.3 E9/L Normal 4.0-11.0 [facility] Comment on above: Performed By: #### 1 0594495, 3353685, 21820994, 4465858, 1133371, 6002415, 95863953 ####[facility] [address] [place] [address] CHEMISTRYOrdered By: SYSTEM SYSTEM on 2023 Ethanol [Mass/Vol] mg/dL Normal <=7mg/dL [facility] Albumin [Mass/Vol] 3.3 g/dL Normal 3.3 - 5.0 gm/dL [facility] Albumin/Globulin [Mass ratio] 1.0 {ratio} Low 1.1 - 2.2 [facility] ALP [Catalytic activity/Vol] 86 [iU]/d Normal 21 - 98 Int._Unit/L [facility] ALT No additional P-5'-P [Catalytic activity/Vol] 145 [iU]/d High 6 - 46 Int._Unit/L [facility] Anion gap [Moles/Vol] 13 mmol/L Normal 6 - 16 mEq/L [facility] AST [Catalytic activity/Vol] 298 [iU]/d High 5 - 43 Int._Unit/L [facility] Bilirubin [Mass/Vol] 0.4 mg/dL Normal 0.0 - 1 .1 mg/dL [facility] Bilirubin.direct [Mass/Vol] 0.2 mg/dL Normal 0.1 - 0.4 mg/dL [facility] Bilirubin.indirect [Mass or moles/Vol] 0.2 mg/dL Normal 0.1 - 0.9 mg/dL [facility] Calcium [Mass/Vol] 8.3 mg/dL Low 8.9 - 11. 1 mg/dL [facility] Chloride [Moles/Vol] 107 mmol/L Normal 101 - 1 11 mmol/L [facility] CO2 [Moles/Vol] 22 mmol/L Normal 21 - 31 mmol/L [facility] Creatinine [Mass/Vol] 0.7 mg/dL Normal 0.5 - 1.3 mg/dL [facility] Ethanol [Mass/Vol] 83 mg/dL Invalid Interpretation Code <=7mg/dL [facility] Comment on above: Result Comment: Crit ical Result S_ETOH:83.0 Called to CARLOS MORSE AT ICU by ERNESTO REYNAGA And Read Back For Confirmation at: 2023 10:13:51\Critical Result verified by repeat analysis GFR/1.73 sq M.predicted among non-blacks MDRD (S/P/Bld) [Vol rate/Area] 119 mL/min/1.73 m2 Normal >=59mL/min/1 .73 m2 [facility] Comment on above: Interpretive Data: C hronic kidney disease could be indicated at eGFR's of less than 60 mL/min/1.73m2. Kidney failure is indicated at less than 15 mL/min/1.73m2. Globulin (S) [Mass/Vol] 3.4 g/dL Normal 1.4 - 4.0 gm/dL [facility] Glucose [Mass/Vol] 93 mg/dL Normal 55 - 199 mg/dL [facility] Comment on above: Interpretive Data: I f this glucose result represents a fasting glucose, interpretation should refer to the following reference range: 55-99 mg/dL Magnesium [Mass/Vol] 1.4 mg/dL Normal 1.3 - 2 .4 mg/dL [facility] Phosphate [Mass/Vol] 2.7 mg/dL Normal 1.9 - 4 .6 mg/dL [facility] Potassium [Moles/Vol] 3.8 mmol/L Normal 3.5 - 5.3 mmol/L [facility] Protein [Mass/Vol] 6.7 g/dL Normal 6.0 - 7.8 gm/dL [facility] Sodium [Moles/Vol] 138 mmol/L Normal 135 - 145 mmol/L [facility] Urea nitrogen [Mass/Vol] 15 mg/dL Normal 5 - 21 mg/dL [facility] Urea nitrogen/Creatinine [Mass ratio] 21 mg/mg High 10 - 20 [facility] Amphetamines Screen method >1000 ng/mL Ql (U) Negative 7 (01/05/23 3:02 AM) Normal Negative [facility] Comment on above: Interpretive Data: N egative Cutoff: <1000 ng/mL Barbiturates Screen Ql (U) Positive 8, 9 *ABN* (01/05/23 3:02 AM) Invalid Interpretation Code Negative [facility] Comment on above: Result Comment: Crit ical Result verified by repeat analysis\No confirmation requested by Physican\Unconfirmed by alternate method\Critical Result UD_BARB:POS Called to RODOLFO PAYTON AT ER by MANUEL CONTRERAS And Read Back For Confirmation at: 2023 03:46:52 Interpretive Data: N egative Cutoff: <200 ng/mL Benzodiazepines Ql (U) Positive 1, 2 *ABN* (01/05/23 3:02 AM) Invalid Interpretation Code Negative [facility] Comment on above: Result Comment: Crit ical Result verified by repeat analysis\No confirmation requested by Physican\Unconfirmed by alternate method\Critical Result UD_BENZ:POS Called to RODOLFO PAYTON AT ER by MANUEL CONTRERAS And Read Back For Confirmation at: 2023 03:46:52 Interpretive Data: N egative Cutoff: <200 ng/mL Cocaine Ql (U) Negative 3 (01/05/23 3:02 AM) Normal Negative [facility] Comment on above: Interpretive Data: N egative Cutoff: <300 ng/mL Opiates Screen Ql (U) Negative 4 (01/05/23 3:02 AM) Normal Negative [facility] Comment on above: Interpretive Data: N egative Cutoff: <300 ng/mL Phencyclidine Screen method >25 ng/mL Ql (U) Negative 5 (01/05/23 3:02 AM) Normal Negative [facility] Comment on above: Interpretive Data: N egative Cutoff: <25 ng/mL These drug screen results are to be used for medical (i.e., treatment) purposes only. Unconfirmed drug screening results must not be used for non-medical purposes (e.g., employment testing, legal testing). Tetrahydrocannabinol Screen method >50 ng/mL Ql (U) Negative 6 (01/05/23 3:02 AM) Normal Negative [facility] Comment on above: Interpretive Data: N egative Cutoff: <50 ng/mL Ethanol [Mass/Vol] 266 mg/dL Invalid Interpretation Code <=7mg/dL [facility] Comment on above: Result Comment: Crit ical Result verified by repeat analysis\Critical Result S_ETOH:266.0 Called to RODOLFO PAYTON AT by MANUEL CONTRERAS And Read Back For Confirmation at: 2023 02:33:18 Albumin [Mass/Vol] 3.8 g/dL Normal 3.3 - 5.0 gm/dL [facility] Albumin/Globulin [Mass ratio] 0.9 {ratio} Low 1.1 - 2.2 [facility] ALP [Catalytic activity/Vol] 103 [iU]/d High 21 - 98 Int._Unit/L [facility] ALT No additional P-5'-P [Catalytic activity/Vol] 159 [iU]/d High 6 - 46 Int._Unit/L [facility] Anion gap [Moles/Vol] 13 mmol/L Normal 6 - 16 mEq/L [facility] AST [Catalytic activity/Vol] 337 [iU]/d High 5 - 43 Int._Unit/L [facility] Bilirubin [Mass/Vol] 0.3 mg/dL Normal 0.0 - 1 .1 mg/dL [facility] Bilirubin.direct [Mass/Vol] 0.1 mg/dL Normal 0.1 - 0.4 mg/dL [facility] Bilirubin.indirect [Mass or moles/Vol] 0.2 mg/dL Normal 0.1 - 0.9 mg/dL [facility] Calcium [Mass/Vol] 8.6 mg/dL Low 8.9 - 11. 1 mg/dL [facility] Chloride [Moles/Vol] 106 mmol/L Normal 101 - 1 11 mmol/L [facility] CO2 [Moles/Vol] 23 mmol/L Normal 21 - 31 mmol/L [facility] Creatinine [Mass/Vol] 0.8 mg/dL Normal 0.5 - 1.3 mg/dL [facility] GFR/1.73 sq M.predicted among non-blacks MDRD (S/P/Bld) [Vol rate/Area] 101 mL/min/1.73 m2 Normal >=59mL/min/1 .73 m2 [facility] Comment on above: Interpretive Data: C hronic kidney disease could be indicated at eGFR's of less than 60 mL/min/1.73m2. Kidney failure is indicated at less than 15 mL/min/1.73m2. Globulin (S) [Mass/Vol] 4.1 g/dL High 1.4 - 4.0 gm/dL [facility] Glucose [Mass/Vol] 91 mg/dL Normal 55 - 199 mg/dL [facility] Comment on above: Interpretive Data: I f this glucose result represents a fasting glucose, interpretation should refer to the following reference range: 55-99 mg/dL Potassium [Moles/Vol] 3.8 mmol/L Normal 3.5 - 5.3 mmol/L [facility] Protein [Mass/Vol] 7.9 g/dL High 6.0 - 7.8 gm/dL [facility] Sodium [Moles/Vol] 138 mmol/L Normal 135 - 145 mmol/L [facility] Troponin I.cardiac [Mass/Vol] 5.50 pg/mL Low 10.10 - 27.10 pg/mL [facility] Comment on above: Interpretive Data: T he 95% CI (Confidence Interval) PPV (Positive Predictive Value) for myocardial infarction in females is 38 pg/mL, in males 51 pg/mL. The results should be used in conjunction with clinical conditions of myocardial infarction. (Access High Sensitivity Troponin I Instructions For Use, [employer], September 2017) Urea nitrogen [Mass/Vol] 13 mg/dL Normal 5 - 21 mg/dL [facility] Urea nitrogen/Creatinine [Mass ratio] 16 mg/mg Normal 10 - 20 [facility] COAGULATIONOrdered By: Vivek Contreras on 2023 aPTT Coag (PPP) [Time] 35.2 s Normal 25.1 - 36.5 second(s) [facility] Comment on above: Interpretive Data: P arameter 15 days - 4 weeks 1 - 5 months 6 - 11 months 1 - 5 years 6 - 10 years 11 - 17 years PTT Mean: 35.4 (27.6-45.6) Mean: 33.5 (24.8-40.7) Mean: 32.4 (25.1-40.7) Mean: 31.6 (24.0-39.2) Mean: 31.6 (26.9-38.7) Mean: 31.0 (24.6-38.4) Pediatric Reference ranges were obtained from a study by marcelino Carroll alCharisma prepared from 1437 samples obtained at 7 different centers using the same coagulation reagent and instrumentation as [facility] Currently there are no coagulation studies available worldwide for children to 14 days, and no normal ranges. Heparin therapeutic range (represented by Anti-Factor Xa activity of 0.2 - 0.4 U/mL) corresponds to PTT of 56.6 - 109.0 sec. INR Coag (PPP) [Relative time] 1.2 {INR} Invalid Interpretation Code [facility] [place] [facility] Comment on above: Interpretive Data: I NR results are specifically intended to assess patients stabilized on long-term Anticoagulation therapy suggested INR s Less Intensive Anticoagulation 2.0 3.0 Conventional Range 3.0 4.5 PT Coag (PPP) [Time] 13.6 s High 9.4 - 1 2.5 second(s) [facility] [place] [facility] Comment on above: Interpretive Data: 1 5 days - 4 weeks 1 - 5 months 6 -11 months 1 5 years 6 10 years 11 -17 years Mean: 11.2 (9.5 12.6) Mean: 11.0 (9.7 12.8) Mean: 11.0 (9.8 13.0) Mean: 11.3 (9.9 13.4) Mean: 11.7 (10.0 14.6) Mean: 11.8 (10.0 - 14.1) Pediatric Reference ranges were obtained from a study by Nathan Dunne et al. prepared from 1437 samples obtained at 7 different centers using the same coagulation reagent and instrumentation as [facility] [place]. Currently there are no coagulation studies available worldwide for children to 14 days, and no normal ranges. CT Head or Brain w/o Contras ton 2023 CT Head or Brain w/o Contrast Normal [facility] CT Spine Cervical w/o Contra ston 2023 CT Spine Cervical w/o Contrast Normal [facility] Consent for Treatmenton 12-13 Consent for Treatment [id number]#[id number] FF Normal [facility] Consultation Noteon 01-06-20 Consultation Note Normal [facility] Comment on above: Result Comment: Elec tronically Signed By: Sekou Mi LPN, Lisa M\.br\Date and Time Signed: 01/05/23 07:45 EST\.br\Electronically Co-Signed By: Francisco Cruz MD\.br\Date and Time Co-Signed: 01/05/23 09:14 EST ED Clinical Summaryon 2022 ED Clinical Summary Normal [facility] ED Note-Physicianon 01-06-20 ED Note-Physician Normal [facility] Comment on above: Result Comment: Elec tronically Signed By: Kerry Linton DO\.br\Date and Time Signed: 01/05/23 04:23 EST ED Patient Education Noteon 2023 ED Patient Education Note Normal [facility] ED Patient Summaryon 023 ED Patient Summary Normal [facility] Ethanolon 2023 Ethanol [Mass/Vol] mg/dL Normal <=7 [facility] Comment on above: Performed By: #### 2 [id number] ####[facility] [address] [place] [address] Ethanol [Mass/Vol] 83 mg/dL Abnormal <=7 [facility] Comment on above: Order Comment: Unsuc cessful attempts to collect labs, other phlebotomists notified. HH Result Comment: Crit ical Result S_ETOH:83.0 Called to [facility] AT ICU by ERNESTO REYNAGA And Read Back For Confirmation at: 2023 10:13:51\Critical Result verified by repeat analysis Performed By: #### 2 [id number] ####[facility] [address] [place] [address] Ethanol [Mass/Vol] 266 mg/dL Abnormal <=7 [facility] Comment on above: Result Comment: Crit ical Result verified by repeat analysis\Critical Result S_ETOH:266.0 Called to [facility] AT by MANUEL CONTRERAS And Read Back For Confirmation at: 2023 02:33:18 Performed By: #### 2 [id number] ####[facility] [address] [place] [address] HEMATOLOGYOrdered By: SYSTEM SYSTEM on 2023 Basophils/100 WBC (Bld) 1.3 % Normal 0.0 - 2.0 % [facility] HemeAutoSS Basophils/Leukocytes Auto (Bld) [Pure # fraction] 0.1 E9/L Normal 0.0 - 0.2 E9/L [facility] HemeAutoSS Eosinophils/100 WBC (Bld) 1.8 % Normal 0.0 - 8.0 % [facility] HemeAutoSS Eosinophils/Leukocyte s Auto (Bld) [Pure # fraction] 0.1 E9/L Normal 0.0 - 0.5 E9/L [facility] HemeAutoSS Lymphocytes/100 WBC (Bld) 46.8 % Normal 14.0 - 50.0 % [facility] HemeAutoSS Lymphocytes/Leukocyte s Auto (Bld) [Pure # fraction] 2.6 E9/L Normal 1.0 - 4.0 E9/L [facility] HemeAutoSS Monocytes/100 WBC (Bld) 5.4 % Normal 4.0 - 14.0 % [facility] HemeAutoSS Monocytes/Leukocytes Auto (Bld) [Pure # fraction] 0.3 E9/L Normal 0.2 - 1.0 E9/L [facility] HemeAutoSS Neutrophils/100 WBC (Bld) 44.7 % Normal 36.0 - 75.0 % [facility] HemeAutoSS Neutrophils/Leukocyte s Auto (Bld) [Pure # fraction] 2.5 E9/L Normal 2.0 - 7.5 E9/L [facility] HemeAutoSS Basophils/100 WBC (Bld) 0.7 % Normal 0.0 - 2.0 % [facility] HemeAutoSS Basophils/Leukocytes Auto (Bld) [Pure # fraction] 0.1 E9/L Normal 0.0 - 0.2 E9/L [facility] HemeAutoSS Eosinophils/100 WBC (Bld) 1.2 % Normal 0.0 - 8.0 % [facility] HemeAutoSS Eosinophils/Leukocyte s Auto (Bld) [Pure # fraction] 0.1 E9/L Normal 0.0 - 0.5 E9/L [facility]eAutoSS Lymphocytes/100 WBC (Bld) 40.2 % Normal 14.0 - 50.0 % [facility] HemeAutoSS Lymphocytes/Leukocyte s Auto (Bld) [Pure # fraction] 4.1 E9/L High 1.0 - 4.0 E9/L [facility] HemeAutoSS Monocytes/100 WBC (Bld) 4.6 % Normal 4.0 - 14.0 % [facility] HemeAutoSS Monocytes/Leukocytes Auto (Bld) [Pure # fraction] 0.5 E9/L Normal 0.2 - 1.0 E9/L [facility] HemeAutoSS Neutrophils/100 WBC (Bld) 53.3 % Normal 36.0 - 75.0 % [facility] HemeAutoSS Neutrophils/Leukocyte s Auto (Bld) [Pure # fraction] 5.5 E9/L Normal 2.0 - 7.5 E9/L [facility] HemeAutoSS HEMATOLOGYOrdered By: Marlyn Villa on 2023 Erythrocyte distribution width (RBC) [Ratio] 12.8 % Normal 10.9 - 14.2 % [facility]eAutoSS Hematocrit (Bld) [Volume fraction] 39.6 % Normal 34.0 - 46.0 % [facility]eAutoSS Hemoglobin (Bld) [Mass/Vol] 13.7 g/dL Normal 12.0 - 16.0 gm/dL [facility]eAutoSS MCH (RBC) [Entitic mass] 33.8 pg Normal 27.0 - 34.0 pg [facility]eAutoSS MCHC (RBC) [Mass/Vol] 34.5 g/dL Normal 31.4 - 36.0 gm/dL [facility]eAutoSS MCV (RBC) [Entitic vol] 98.0 fL Normal 80.0 - 100.0 fL [facility]eAuto[facility] Platelet mean volume (Bld) [Entitic vol] 8.8 fL Normal 6.4 - 10.8 fL [facility] HemeAutoSS Platelets (Bld) [#/Vol] 124.0 E9/L Low 150.0 - 500.0 E9/L [facility]eAutoSS RBC (Bld) [#/Vol] 4.0 E12/L Low 4.3 - 5.9 E12/L [facility]eAutoSS WBC corrected for nucl RBC Auto (Bld) [#/Vol] 5.6 E9/L Normal 4.0 - 11.0 E9/L [facility] HemeAutoSS HEMATOLOGYOrdered By: Arlene Contreras on 2023 Erythrocyte distribution width (RBC) [Ratio] 13.3 % Normal 10.9 - 14.2 % [facility] HemeAutoSS Hematocrit (Bld) [Volume fraction] 44.7 % Normal 34.0 - 46.0 % [facility] HemeAutoSS Hemoglobin (Bld) [Mass/Vol] 15.6 g/dL Normal 12.0 - 16.0 gm/dL [facility] HemeAutoSS MCH (RBC) [Entitic mass] 34.3 pg High 27.0 - 34.0 pg [facility] HemeAutoSS MCHC (RBC) [Mass/Vol] 34.9 g/dL Normal 31.4 - 36.0 gm/dL [facility] HemeAutoSS MCV (RBC) [Entitic vol] 98.4 fL Normal 80.0 - 100.0 fL [facility] HemeAutoSS Platelet mean volume (Bld) [Entitic vol] 9.1 fL Normal 6.4 - 10.8 fL [facility] HemeAutoSS Platelets (Bld) [#/Vol] 197.0 E9/L Normal 150.0 - 500.0 E9/L [facility] HemeAutoSS RBC (Bld) [#/Vol] 4.5 E12/L Normal 4.3 - 5.9 E12/L [facility] HemeAutoSS WBC corrected for nucl RBC Auto (Bld) [#/Vol] 10.3 E9/L Normal 4.0 - 11.0 E9/L [facility] HemeAutoSS Hep Func Panelon 2023 Albumin [Mass/Vol] 3.3 g/dL Normal 3.3-5.0 [facility] Comment on above: Performed By: #### 2 813485, 7805548, 53496396, 1032499, 3703387, 0051668, 4496206 ####[facility] [address] [place] [address] Albumin/Globulin (S) [Mass conc ratio] 1.0 Low 1.1-2.2 [facility] Comment on above: Performed By: #### 2 124528, 9743559, 99505909, 5901768, 9244738, 7378805, 5036534 ####[facility] [address] [place] [address] ALP [Catalytic activity/Vol] 86 Int._Unit/L Normal 21-98 [facility] Comment on above: Performed By: #### 2 761559, 6118321, 66154340, 8642794, 5777066, 5681727, 8786119 ####[facility] [address] [place] [address] ALT No additional P-5'-P [Catalytic activity/Vol] 145 Int._Unit/L High 6-46 [facility] Comment on above: Performed By: #### 2 824557, 3957291, 19318863, 8811878, 6092456, 8924025, 8320440 ####[facility] [address] [place] [address] AST [Catalytic activity/Vol] 298 Int._Unit/L High 5-43 [facility] Comment on above: Performed By: #### 2 514305, 0442699, 55398194, 1157529, 0913660, 9191571, 0883014 ####[facility] [address] [place] [address] Bilirubin [Mass/Vol] 0.4 mg/dL Normal 0.0-1.1 [facility] Comment on above: Performed By: #### 2 594035, 2381320, 62556991, 6281236, 8582274, 3653778, 8655543 ####[facility] [address] [place] [address] Bilirubin.direct [Mass/Vol] 0.2 mg/dL Normal 0.1-0.4 [facility] Comment on above: Performed By: #### 2 738459, 4116793, 42032043, 6301129, 7746017, 5604358, 6982530 ####[facility] [address] [place] [address] Bilirubin.indirect [Mass or moles/Vol] 0.2 mg/dL Normal 0.1-0.9 [facility] Comment on above: Performed By: #### 2 761395, 4708291, 78356618, 1254560, 5498499, 3346457, 4077788 ####[address] [place] [address] Globulin (S) [Mass/Vol] 3.4 g/dL Normal 1.4-4.0 [facility] Comment on above: Performed By: #### 2 667310, 2895211, 17779071, 0141287, 6427385, 5963985, 9334807 ####[address] [place] [address] Protein [Mass/Vol] 6.7 g/dL Normal 6.0-7.8 [facility] Comment on above: Performed By: #### 2 434891, 6354661, 32272484, 8870711, 2192745, 6447080, 2003469 ####[address] [address] Albumin [Mass/Vol] 3.8 g/dL Normal 3.3-5.0 [facility] Comment on above: Performed By: #### 1 7712453, 1899788, 34623653, 9501421, 0803018, 3215140, 18822418 ####[address] [place] [address] Albumin/Globulin (S) [Mass conc ratio] 0.9 Low 1.1-2.2 [facility] Comment on above: Performed By: #### 1 7371503, 4256257, 73760056, 1905658, 5553818, 2400067, 35685771 ####[address] [place] [address] ALP [Catalytic activity/Vol] 103 Int._Unit/L High 21-98 [facility] Comment on above: Performed By: #### 1 7901315, 6555901, 57311903, 9802855, 6615528, 5296520, 57076186 ####[address] [place] [address] ALT No additional P-5'-P [Catalytic activity/Vol] 159 Int._Unit/L High 6-46 [facility] Comment on above: Performed By: #### 1 6018896, 0094260, 48490946, 3295895, 9512106, 7643406, 02161270 ####[address] [place] [address] AST [Catalytic activity/Vol] 337 Int._Unit/L [facility] 5-43 [facility] Comment on above: Performed By: #### 1 5920322, 4156915, 09113295, 3893449, 0957087, 0837952, 17019506 ####[place] [address] Bilirubin [Mass/Vol] 0.3 mg/dL Normal 0.0-1.1 [facility] Comment on above: Performed By: #### 1 3406638, 8643446, 29597596, 8017606, 5241027, 3065500, 26618183 ####[place] [address] Bilirubin.direct [Mass/Vol] 0.1 mg/dL Normal 0.1-0.4 [facility] Comment on above: Performed By: #### 1 3436856, 7152223, 24980913, 2752677, 5293516, 4527819, 56595769 ####[place] [address] Bilirubin.indirect [Mass or moles/Vol] 0.2 mg/dL Normal 0.1-0.9 [facility] Comment on above: Performed By: #### 1 5535496, 3813571, 23573004, 6294768, 2495586, 3707508, 73601483 ####[facility] [address] [place] [address] Globulin (S) [Mass/Vol] 4.1 g/dL High 1.4-4.0 [facility] Comment on above: Performed By: #### 1 0989489, 2486435, 02484677, 0049382, 4400182, 7917133, 95222839 ####[facility] [address] [place] [address] Protein [Mass/Vol] 7.9 g/dL High 6.0-7.8 [facility] Comment on above: Performed By: #### 1 5500342, 7936524, 11107903, 6317092, 2166272, 0334932, 54138562 ####[facility] [address] [place] [address] Interdisciplinary Note - Alonso e Manageron 2023 Interdisciplinary Note - High Climber [facility] Comment on above: Result Comment: Elec tronically Signed By: Katy Wood\.br\Date and Time Signed: 01/05/23 14:50 EST Magnesiumon 2023 Magnesium [Mass/Vol] 1.4 mg/dL Normal 1.3-2.4 [facility] Comment on above: Performed By: #### 2 140667, 2093912, 43844603, 1652369, 2383257, 4577823, 8773634 ####[facility] [address] [place] [address] Monitor Recordon 2023 Monitor Record [id number] [id number]#1.00TI Normal [facility] Monitor Record [id number] [id number]#1.00TI FF Normal [facility] Monitor Record [id number] [id number] FF Normal [facility] Monitor Record [id number] [id number]#1.00TI FF Normal [facility] PT & PTTon 2023 aPTT Coag (PPP) [Time] 35.2 second(s) Normal 25.1-36.5 [facility] Comment on above: Result Comment: Para meter 15 days - 4 weeks 1 - 5 months 6 - 11 months 1 - 5 years 6 - 10 years 11 - 17 years PTT Mean: 35.4 (27.6-45.6) Mean: 33.5 (24.8-40.7) Mean: 32.4 (25.1-40.7) Mean: 31.6 (24.0-39.2) Mean: 31.6 (26.9-38.7) Mean: 31.0 (24.6-38.4) Pediatric Reference ranges were obtained from a study by marcelino Carroll al. prepared from 1437 samples obtained at 7 different centers using the same coagulation reagent and instrumentation [place] [facility] [place] Currently there are no coagulation studies available worldwide for children to 14 days, and no normal ranges. Heparin therapeutic range (represented by Anti-Factor Xa activity of 0.2 - 0.4 U/mL) corresponds to PTT of 56.6 - 109.0 sec. Performed By: #### 1 8248882, 4350244, 93381859, 9080907, 8989191, 3544883, 59945702 ####[facility] [address] [place] [address] INR Coag (PPP) [Relative time] 1.2 {INR} Invalid Interpretation Code [facility] Comment on above: Result Comment: INR results are specifically intended to assess patients stabilized on long-term Anticoagulation therapy suggested INR?s ?Less Intensive Anticoagulation? 2.0 ? 3.0Conventional Range 3.0 ? 4.5 Performed By: #### 1 2089963, 5902168, 64511379, 5337028, 9904374, 8607095, 51313468 ####[facility] [address] [place] [address] PT Coag (PPP) [Time] 13.6 second(s) High 9.4-12.5 [facility] Comment on above: Result Comment: 15 d ays - 4 weeks 1 - 5 months 6 -11 months 1 ? 5 years 6 ? 10 years 11 -17 years Mean: 11.2 (9.5 ? 12.6) Mean: 11.0 (9.7 ? 12.8) Mean: 11.0 (9.8 ? 13.0) Mean: 11.3 (9.9 ? 13.4) Mean: 11.7 (10.0 ? 14.6) Mean: 11.8 (10.0 - 14.1) Pediatric Reference ranges were obtained from a study by Nathan Dunne et al. prepared from 1437 samples obtained at 7 different centers using the same coagulation reagent and instrumentation [place] [facility] [place] Currently there are no coagulation studies available worldwide for children to 14 days, and no normal ranges. Performed By: #### 1 6097274, 9612250, 67926372, 2651123, 7980978, 0051855, 08597942 ####[facility] [address] [place] [address] Phosphoruson 2023 Phosphate [Mass/Vol] 2.7 mg/dL Normal 1.9-4.6 [facility] Comment on above: Performed By: #### 2 313538, 0693846, 79571685, 2594339, 4613585, 4233284, 2986342 ####[facility] [address] [place] [address] Pre-Arrival Noteon 3 Pre-Arrival Note Normal [facility] RAD - Preliminary Cat Scan R eporton 2023 RAD - Preliminary Cat Scan Report [id number]#1.00TIF F Normal [facility] SEROLOGYOrdered By: Alejandra Contreras on 2023 Beta HCG ( test) Ql Negative (01/05/23 1:58 AM) Normal [facility] Man Sero Troponin 0 Hr.on 2023 Troponin I.cardiac [Mass/Vol] 5.50 pg/mL Low 10.10-27.10 [facility] Comment on above: Result Comment: The 95% CI (Confidence Interval) PPV (Positive Predictive Value) for myocardial infarction in females is 38 pg/mL, in males 51 pg/mL. The results should be used in conjunction with clinical conditions of myocardial infarction.(Access High Sensitivity Troponin I Instructions For Use, Yvrose [place], September 2017) Performed By: #### 1 5337675, 0427227, 21868781, 6819371, 1146929, 9684244, 80186463 ####[address] [place] [address] U Drug Screenon 2023 Barbiturates Screen Ql (U) Positive Abnormal Negative [facility] Comment on above: Result Comment: Crit ical Result verified by repeat analysis\No confirmation requested by Physican\Unconfirmed by alternate method\Critical Result UD_BARB:POS Called to [facility] AT ER by MANUEL CONTRERAS And Read Back For Confirmation at: 2023 03:46:52Negative Cutoff: <200 ng/mL Performed By: #### 2 496942 ####[address] [address] Benzodiazepines Ql (U) Positive Abnormal Negative [facility] Comment on above: Result Comment: Crit ical Result verified by repeat analysis\No confirmation requested by Physican\Unconfirmed by alternate method\Critical Result UD_BENZ:POS Called to [facility] AT ER by MANUEL CONTRERAS And Read Back For Confirmation at: 2023 03:46:52Negative Cutoff: <200 ng/mL Performed By: #### 2 575827 ####[place] [address] Amphetamines Screen method >1000 ng/mL Ql (U) Negative Normal Negative [facility] Comment on above: Result Comment: Nega tive Cutoff: <1000 ng/mL Performed By: #### 2 844046 ####[address] [address] Cocaine Ql (U) Negative Normal Negative [facility] Comment on above: Result Comment: Nega tive Cutoff: <300 ng/mL Performed By: #### 2 716458 ####[address] [address] Opiates Screen Ql (U) Negative Normal Negative [facility] Comment on above: Result Comment: Nega tive Cutoff: <300 ng/mL Performed By: #### 2 569406 ####[facility] [place] [address] Phencyclidine Screen method >25 ng/mL Ql (U) Negative Normal Negative [facility] Comment on above: Result Comment: Nega tive Cutoff: <25 ng/mLThese drug screen results are to be used for medical (i.e., treatment) purposes only. Unconfirmed drug screening results must not be used for non-medical purposes (e.g., employment testing, legal testing). Performed By: #### 2 047496 ####[address] [address] Tetrahydrocannabinol Screen method >50 ng/mL Ql (U) Negative Normal Negative [facility] Comment on above: Result Comment: Nega tive Cutoff: <50 ng/mL Performed By: #### 2 123098 ####[address] [address] UA With Cult Reflexon 2022 Bacteria LM Ql (Urine sed) TRACE Normal Trace [facility] Comment on above: Performed By: #### 1 7563479 ####[address] [place] [address] Bilirubin Ql (U) Negative Normal Negative [facility] Comment on above: Performed By: #### 1 4854915 ####[address] [address] Clarity (U) CLEAR Normal Clear [facility] Comment on above: Performed By: #### 1 7957146 ####[facility] [address] [place] [address] Color (U) YELLOW Normal Yellow [facility] Comment on above: Performed By: #### 1 7737856 ####[address] [address] Crystals LM Ql (Urine sed) Present Normal [facility] Comment on above: Performed By: #### 1 1670649 ####[address] [address] Epithelial cells.squamous LM.HPF (Urine sed) [#/Area] 0-2 Normal 0-2 [facility] Comment on above: Performed By: #### 1 9978363 ####[facility] [address] [place] [address] Glucose Test strip (U) [Mass/Vol] Negative Normal Negative [facility] Comment on above: Performed By: #### 1 5611899 ####[facility] [address] [place] [address] Hemoglobin Ql (U) 1+ Abnormal Negative [facility] Comment on above: Performed By: #### 1 8954934 ####[facility] [address] [place] [address] Ketones (U) [Mass/Vol] Negative Normal Negative [facility] Comment on above: Performed By: #### 1 4378200 ####[address] [address] [place].plasma/Lithiu m.RBC (Bld) [Mass ratio] 0-3 Normal 0-3 [facility] Comment on above: Performed By: #### 1 7384348 ####[facility] [address] [place] [address] Mucus Ql (Urine sed) TRACE Normal [facility] Comment on above: Performed By: #### 1 1121976 ####[address] [place] [address] Nitrite Ql (U) Negative Normal Negative [facility] Comment on above: Performed By: #### 1 9852449 ####[facility] [address] [place] [address] pH (U) 6.5 [pH] Invalid Interpretation Code 5.0-9.0 [facility] Comment on above: Performed By: #### 1 7188211 ####[facility] [address] [place] [address] Protein (U) [Mass/Vol] Negative Normal Negative [facility] Comment on above: Performed By: #### 1 1161139 ####[facility] [address] [place] [address] Specific gravity (U) [Rel density] 1.020 Invalid Interpretation Code 1.005-1.030 [facility] Comment on above: Performed By: #### 1 4790558 ####[place] [address] Type of Urine collection method Clean Catch Normal [facility] Comment on above: Performed By: #### 1 5996850 ####[place] [address] Urobilinogen Qn (U) 0.2 {Surinder'U}/dL Normal 0.0-1.0 [facility] Comment on above: Performed By: #### 1 3100234 ####[place] [address] WBC Auto Ql (U) Negative Normal Negative [facility] Comment on above: Performed By: #### 1 1262546 ####[place] [address] WBC LM.HPF (Urine sed) [#/Area] 0-5 Normal 0-5 [facility] Comment on above: Performed By: #### 1 3676287 ####[place] [address] URINALYSISOrdered By: Arlene Contreras on 2023 Bacteria LM Ql (Urine sed) Trace /HPF Normal Trace/HPF [facility] [facility] Auto SS Bilirubin Ql (U) Negative (01/05/23 3:02 AM) Normal Negative [facility] [facility]A Auto SS Clarity (U) Clear (01/05/23 3:02 AM) Normal Clear [facility] UA Auto SS Color (U) Yellow (01/05/23 3:02 AM) Normal Yellow [facility] UA Auto SS Crystals LM Ql (Urine sed) Present (01/05/23 3:02 AM) Normal [facility] UA Auto SS Epithelial cells.squamous LM.HPF (Urine sed) [#/Area] 0-2 /HPF Normal 0-2/HPF [facility] UA Aut o SS Glucose Test strip (U) [Mass/Vol] Negative (01/05/23 3:02 AM) Normal Negative [facility] UA Auto SS Hemoglobin Ql (U) 1+ *ABN* (01/05/23 3:02 AM) Invalid Interpretation Code Negative [facility] UA Auto SS Ketones (U) [Mass/Vol] Negative (01/05/23 3:02 AM) Normal Negative [facility] UA Auto SS [place].plasma/Lithiu m.RBC (Bld) [Mass ratio] 0-3 /HPF Normal 0-3/HPF [facility] UA Auto SS Mucus Ql (Urine sed) Trace (01/05/23 3:02 AM) Normal [facility] UA Auto SS Nitrite Ql (U) Negative (01/05/23 3:02 AM) Normal Negative [facility] UA Auto SS pH (U) 6.5 *NA* (01/05/23 3:02 AM) Invalid Interpretation Code 5.0 - 9.0 [facility]A Auto SS Protein (U) [Mass/Vol] Negative (01/05/23 3:02 AM) Normal Negative [facility] UA Auto SS Specific gravity (U) [Rel density] 1.020 *NA* (01/05/23 3:02 AM) Invalid Interpretation Code 1.005 - 1.030 [facility] UA Auto SS UA Spec Desc Clean Catch (01/05/23 3:02 AM) Normal [facility] UA Auto SS Urobilinogen Qn (U) 0.7607158 {Surinder'U}/dL Normal 0.0 - 1.0 EU/dL [facility] UA Auto SS WBC Auto Ql (U) Negative (01/05/23 3:02 AM) Normal Negative [facility] UA Auto SS WBC LM.HPF (Urine sed) [#/Area] 0-5 /HPF Normal 0-5/HPF [facility] UA Auto SS XR Chest Single Viewon 01-05 XR Chest Single View Normal Fish [facility] XR Knee Complete 4+ Views Le fton 2023 XR Knee Complete 4+ Views Left Normal [facility] eGFRon 2023 GFR/1.73 sq M.predicted among non-blacks MDRD (S/P/Bld) [Vol rate/Area] 119 mL/min/1.73 m2 Normal >=59 [facility] Comment on above: Order Comment: Order added by Discern Expert. Result Comment: Surveillance Sensor Officer justin kidney disease could be indicated at eGFR's of less than 60 mL/min/1.73m2. Kidney failure is indicated at less than 15 mL/min/1.73m2. Performed By: #### 2 703332, 0954465, 91589228, 0894253, 6588681, 0820017, 7746064 ####[facility] [address] [place] [address] GFR/1.73 sq M.predicted among non-blacks MDRD (S/P/Bld) [Vol rate/Area] 101 mL/min/1.73 m2 Normal >=59 [facility] Comment on above: Order Comment: Order added by Discern Expert. Result Comment: Surveillance Sensor Officer justin kidney disease could be indicated at eGFR's of less than 60 mL/min/1.73m2. Kidney failure is indicated at less than 15 mL/min/1.73m2. Performed By: #### 1 1341702, 2281259, 20551840, 3566672, 0114065, 8831464, 88168342 ####[facility] [address] [place] [address] Auto Diffon 01-02-2023 Basophils/100 WBC (Bld) 0.7 % Normal 0.0-2.0 [facility] Comment on above: Order Comment: Order Added by Discern Expert. Performed By: #### 2 376022, 60111435, 0319832, 9635928, 0383759, 52605848, 75400235 ####[facility] [address] [place] [address] Basophils/Leukocytes Auto (Bld) [Pure # fraction] 0.1 E9/L Normal 0.0-0.2 [facility] Comment on above: Order Comment: Order Added by Discern Expert. Performed By: #### 2 123446, 69409643, 7599546, 4683743, 5272027, 12489359, 86241586 ####[facility] [address] [place] [address] Eosinophils/100 WBC (Bld) 1.3 % Normal 0.0-8.0 [facility] Comment on above: Order Comment: Order Added by Discern Expert. Performed By: #### 2 300993, [id number], [id number], [id number], [id number], [id number] ####[id number] [place] [address] Eosinophils/Leukocyte s Auto (Bld) [Pure # fraction] 0.1 E9/L Normal 0.0-0.5 [facility] Comment on above: Order Comment: Order Added by Discern Expert. Performed By: #### 2 [id number], [id number], [id number], [id number], [id number], [id number], [id number] ####[place] [address] [place] [address] Lymphocytes/100 WBC (Bld) 55.8 % High 14.0-50.0 [facility] Comment on above: Order Comment: Order Added by Radha Expert. Performed By: #### 2 684500, 45255901, 8793827, 8588452, 5248786, 66648400, 36755334 ####[address] [address] Lymphocytes/Leukocyte s Auto (Bld) [Pure # fraction] 4.5 E9/L High 1.0-4.0 [facility] Comment on above: Order Comment: Order Added by Radha Expert. Performed By: #### 2 065218, 57671896, 6385810, 6919851, 2127362, 28927931, 23266406 ####[address] [place] [address] Monocytes/100 WBC (Bld) 3.8 % Low 4.0-14.0 [facility] Comment on above: Order Comment: Order Added by Discern Expert. Performed By: #### 2 863653, 71540892, 9592343, 5446360, 5176677, 05102379, 80361954 ####[address] [place] [address] Monocytes/Leukocytes Auto (Bld) [Pure # fraction] 0.3 E9/L Normal 0.2-1.0 [facility] Comment on above: Order Comment: Order Added by Discern Expert. Performed By: #### 2 301052, 43078476, 9540201, 7724963, 8874653, 88738965, 89137154 ####[facility] [address] [place] [address] Neutrophils/100 WBC (Bld) 38.4 % Normal 36.0-75.0 [facility] Comment on above: Order Comment: Order Added by Discern Expert. Performed By: #### 2 434846, 75070903, 9450753, 3401475, 9258251, 12147157, 42726813 ####[facility] [address] [place] [address] Neutrophils/Leukocyte s Auto (Bld) [Pure # fraction] 3.1 E9/L Normal 2.0-7.5 [facility] Comment on above: Order Comment: Order Added by Discern Expert. Performed By: #### 2 384757, 37730167, 1926448, 6290347, 5372354, 29343765, 69458107 ####[facility] [address] [place] [address] BMP 01-02-2023 Creatinine [Mass/Vol] 0.5 mg/dL Normal 0.5-1.3 [facility] Comment on above: Performed By: #### 2 036953, 07609408, 9885768, 8789304, 0550567, 94034246, 22134811 ####[facility] [address] [place] [address] Urea nitrogen [Mass/Vol] 8 mg/dL Normal 5-21 [facility] Comment on above: Performed By: #### 2 168308, 70759937, 9695633, 6508861, 5109590, 10862231, 46938350 ####[facility] [address] [place] [address] Urea nitrogen/Creatinine [Mass ratio] 16 No Units Normal 10-20 [facility] Comment on above: Performed By: #### 2 590380, 89485880, 0773162, 1219295, 9268594, 75237013, 77540532 ####[facility] [address] [place] [address] Anion gap [Moles/Vol] 11 mmol/L Normal 6-16 [facility] Comment on above: Performed By: #### 2 480413, 15181775, 1499876, 6593602, 1590541, 13019266, 43366529 ####[facility] [address] [place] [address] Calcium [Mass/Vol] 8.3 mg/dL Low 8.9-11.1 [facility] Comment on above: Performed By: #### 2 816699, 75049794, 1272823, 4410713, 4191741, 62820194, 27003480 ####[facility] [address] [place] [address] Chloride [Moles/Vol] 109 mmol/L Normal 101-111 [facility] Comment on above: Performed By: #### 2 788464, 09730350, 1234561, 8691261, 9628712, 15761022, 54884631 ####[facility] [address] [place] [address] CO2 [Moles/Vol] 25 mmol/L Normal 21-31 [facility] Comment on above: Performed By: #### 2 918014, 30597037, 2182791, 2598168, 2981544, 08394996, 43378690 ####[facility] [address] [place] [address] Glucose [Mass/Vol] 84 mg/dL Normal 55-199 [facility] Comment on above: Result Comment: If t his glucose result represents a fasting glucose, interpretation should refer to the following reference range: 55-99 mg/dL Performed By: #### 2 755653, 08196088, 5339047, 8585930, 5736831, 80765280, 74792084 ####[facility] [address] [place] [address] Potassium [Moles/Vol] 3.8 mmol/L Normal 3.5-5.3 [facility] Comment on above: Performed By: #### 2 892753, 42088109, 8797292, 9176492, 6193706, 52630360, 06041392 ####[facility] [address] [place] [address] Sodium [Moles/Vol] 141 mmol/L Normal 135-145 [facility] Comment on above: Performed By: #### 2 239059, 82366515, 7796058, 4802320, 9500857, 84668254, 60009115 ####[facility] [address] [place] [address] CBC w/ Auto Diffon Erythrocyte distribution width (RBC) [Ratio] 13.3 % Normal 10.9-14.2 [facility] Comment on above: Performed By: #### 2 845930, 08818788, 8501230, 9328780, 7734609, 11867107, 34397929 ####[facility] [address] [place] [address] Hematocrit (Bld) [Volume fraction] 43.4 % Normal 34.0-46.0 [facility] Comment on above: Performed By: #### 2 558069, 05069178, 3048397, 9103453, 3256834, 48219059, 12854949 ####[facility] [address] [place] [address] Hemoglobin (Bld) [Mass/Vol] 14.5 g/dL Normal 12.0-16.0 [facility] Comment on above: Performed By: #### 2 830425, 12366820, 5446918, 2675781, 5317973, 30817120, 62532841 ####[facility] [address] [place] [address] MCH (RBC) [Entitic mass] 33.3 pg Normal 27.0-34.0 [facility] Comment on above: Performed By: #### 2 765800, 88254479, 7146732, 0639183, 8573694, 17194616, 40821252 ####[facility] [address] [place] [address] MCHC (RBC) [Mass/Vol] 33.4 g/dL Normal 31.4-36.0 [facility] Comment on above: Performed By: #### 2 364333, 18720581, 7257727, 7152779, 0352584, 86539055, 63990113 ####[facility] [address] [place] [address] MCV (RBC) [Entitic vol] 99.6 fL Normal 80.0-100.0 [facility] Comment on above: Performed By: #### 2 476636, 31352279, 6331290, 3517774, 2755288, 45006327, 44784226 ####[address] [address] Platelet mean volume (Bld) [Entitic vol] 8.4 fL Normal 6.4-10.8 [facility] Comment on above: Performed By: #### 2 139465, 96038775, 1447804, 2878744, 8857944, 25203939, 26297648 ####[address] [address] Platelets (Bld) [#/Vol] 204.0 E9/L Normal 150.0-500.0 [facility] Comment on above: Performed By: #### 2 033723, 95332461, 7546927, 3868904, 0066032, 78160586, 34423149 ####[address] [place] [address] RBC (Bld) [#/Vol] 4.4 E12/L Normal 4.3-5.9 [facility] Comment on above: Performed By: #### 2 434408, 31534720, 0553705, 8665085, 5739172, 18603515, 46189862 ####[facility] [address] [place] [address] WBC corrected for nucl RBC Auto (Bld) [#/Vol] 8.0 E9/L Normal 4.0-11.0 [facility] Comment on above: Performed By: #### 2 595601, 88447244, 0475339, 6088155, 2685273, 79882328, 52227992 ####[facility] [address] [place] [address] CHEMISTRYOrdered By: SYSTEM SYSTEM on 01-02-2023 Anion gap [Moles/Vol] 11 mmol/L Normal 6 - 16 mEq/L [facility] Calcium [Mass/Vol] 8.3 mg/dL Low 8.9 - 11. 1 mg/dL [facility] Chloride [Moles/Vol] 109 mmol/L Normal 101 - 1 11 mmol/L [facility] CO2 [Moles/Vol] 25 mmol/L Normal 21 - 31 mmol/L [facility] Creatinine [Mass/Vol] 0.5 mg/dL Normal 0.5 - 1.3 mg/dL [facility] Ethanol [Mass/Vol] 359 mg/dL Invalid Interpretation Code <=7mg/dL [facility] Comment on above: Result Comment: Crit ical Result verified by repeat analysis\Critical Result S_ETOH:359.0 Called to VIN CASAREZ AT by SIXTO COLEMAN And Read Back For Confirmation at: 01/02/2023 01:49:19 GFR/1.73 sq M.predicted among non-blacks MDRD (S/P/Bld) [Vol rate/Area] 129 mL/min/1.73 m2 Normal >=59mL/min/1 .73 m2 [facility] Comment on above: Interpretive Data: C hronic kidney disease could be indicated at eGFR's of less than 60 mL/min/1.73m2. Kidney failure is indicated at less than 15 mL/min/1.73m2. Glucose [Mass/Vol] 84 mg/dL Normal 55 - 199 mg/dL [facility] Comment on above: Interpretive Data: I f this glucose result represents a fasting glucose, interpretation should refer to the following reference range: 55-99 mg/dL Magnesium [Mass/Vol] 1.9 mg/dL Normal 1.3 - 2 .4 mg/dL [facility] Potassium [Moles/Vol] 3.8 mmol/L Normal 3.5 - 5.3 mmol/L [facility] Sodium [Moles/Vol] 141 mmol/L Normal 135 - 145 mmol/L [facility] Troponin I.cardiac [Mass/Vol] 4.90 pg/mL Low 10.10 - 27.10 pg/mL [facility] Comment on above: Interpretive Data: T he 95% CI (Confidence Interval) PPV (Positive Predictive Value) for myocardial infarction in females is 38 pg/mL, in males 51 pg/mL. The results should be used in conjunction with clinical conditions of myocardial infarction. (Access High Sensitivity Troponin I Instructions For Use, [employer], September 2017) Urea nitrogen [Mass/Vol] 8 mg/dL Normal 5 - 21 mg/dL [facility] Urea nitrogen/Creatinine [Mass ratio] 16 mg/mg Normal 10 - 20 [facility] COAGULATIONOrdered By: Sixto Coleman on 01-02-2023 aPTT Coag (PPP) [Time] 34.5 s Normal 25.1 - 36.5 second(s) [facility] Comment on above: Interpretive Data: P arameter 15 days - 4 weeks 1 - 5 months 6 - 11 months 1 - 5 years 6 - 10 years 11 - 17 years PTT Mean: 35.4 (27.6-45.6) Mean: 33.5 (24.8-40.7) Mean: 32.4 (25.1-40.7) Mean: 31.6 (24.0-39.2) Mean: 31.6 (26.9-38.7) Mean: 31.0 (24.6-38.4) Pediatric Reference ranges were obtained from a study by Nathan Dunne et al. prepared from 1437 samples obtained at 7 different centers using the same coagulation reagent and instrumentation as [facility]. Currently there are no coagulation studies available worldwide for children to 14 days, and no normal ranges. Heparin therapeutic range (represented by Anti-Factor Xa activity of 0.2 - 0.4 U/mL) corresponds to PTT of 56.6 - 109.0 sec. INR Coag (PPP) [Relative time] 1.1 {INR} Invalid Interpretation Code [facility] Comment on above: Interpretive Data: I NR results are specifically intended to assess patients stabilized on long-term Anticoagulation therapy suggested INR s Less Intensive Anticoagulation 2.0 3.0 Conventional Range 3.0 4.5 PT Coag (PPP) [Time] 12.2 s Normal 9.4 - 1 2.5 second(s) [facility] Comment on above: Interpretive Data: 1 5 days - 4 weeks 1 - 5 months 6 -11 months 1-5 years 6-10 years 11 -17 years Mean: 11.2 (9.5-12.6) Mean: 11.0 (9.7-12.8) Mean: 11.0 (9.8-13.0) Mean: 11.3 (9.9-13.4) Mean: 11.7 (10.0-14.6) Mean: 11.8 (10.0 - 14.1) Pediatric Reference ranges were obtained from a study by marcelino Carroll al. prepared from 1437 samples obtained at 7 different centers using the same coagulation reagent and instrumentation as [facility]. Currently there are no coagulation studies available worldwide for children to 14 days, and no normal ranges. Consent for Treatmenton 12-13 Consent for Treatment [id number] FF Normal [facility] Discharge Instructionson Discharge Instructions [id number] FF Normal [facility] ED Clinical Summaryon 2022 ED Clinical Summary Normal Robby soliman [facility] ED Note-Physicianon 01-03-20 23 ED Note-Physician Normal [facility] Comment on above: Result Comment: Elec tronically Signed By: Darren Guzman DO.br\Date and Time Signed: 01/02/23 02:02 EST ED Patient Education Noteon 01-02-2023 ED Patient Education Note Normal [facility] ED Patient Summaryon 023 ED Patient Summary Normal [facility] Ethanolon 01-02-2023 Ethanol [Mass/Vol] 359 mg/dL Abnormal <=7 [facility] Comment on above: Result Comment: Crit ical Result verified by repeat analysis\Critical Result S_ETOH:359.0 Called to VIN CASAREZ AT ER by SIXTO COLEMAN And Read Back For Confirmation at: 01/02/2023 01:49:19 Performed By: #### 2 873273 ####[facility] [address] [place] [address] HEMATOLOGYOrdered By: SYSTEM SYSTEM on 01-02-2023 Basophils/100 WBC (Bld) 0.7 % Normal 0.0 - 2.0 % [facility] HemeAutoSS Basophils/Leukocytes Auto (Bld) [Pure # fraction] 0.1 E9/L Normal 0.0 - 0.2 E9/L [facility] HemeAutoSS Eosinophils/100 WBC (Bld) 1.3 % Normal 0.0 - 8.0 % [facility] HemeAutoSS Eosinophils/Leukocyte s Auto (Bld) [Pure # fraction] 0.1 E9/L Normal 0.0 - 0.5 E9/L [facility] HemeAutoSS Lymphocytes/100 WBC (Bld) 55.8 % High 14.0 - 50.0 % [facility] HemeAutoSS Lymphocytes/Leukocyte s Auto (Bld) [Pure # fraction] 4.5 E9/L High 1.0 - 4.0 E9/L [facility] HemeAutoSS Monocytes/100 WBC (Bld) 3.8 % Low 4.0 - 14.0 % [facility] HemeAutoSS Monocytes/Leukocytes Auto (Bld) [Pure # fraction] 0.3 E9/L Normal 0.2 - 1.0 E9/L [facility] HemeAutoSS Neutrophils/100 WBC (Bld) 38.4 % Normal 36.0 - 75.0 % [facility] HemeAutoSS Neutrophils/Leukocyte s Auto (Bld) [Pure # fraction] 3.1 E9/L Normal 2.0 - 7.5 E9/L [facility] HemeAutoSS HEMATOLOGYOrdered By: Sixto Coleman on 01-02-2023 Erythrocyte distribution width (RBC) [Ratio] 13.3 % Normal 10.9 - 14.2 % [facility] HemeAutoSS Hematocrit (Bld) [Volume fraction] 43.4 % Normal 34.0 - 46.0 % [facility] HemeAutoSS Hemoglobin (Bld) [Mass/Vol] 14.5 g/dL Normal 12.0 - 16.0 gm/dL [facility] HemeAutoSS MCH (RBC) [Entitic mass] 33.3 pg Normal 27.0 - 34.0 pg [facility] HemeAutoSS MCHC (RBC) [Mass/Vol] 33.4 g/dL Normal 31.4 - 36.0 gm/dL [facility] HemeAutoSS MCV (RBC) [Entitic vol] 99.6 fL Normal 80.0 - 100.0 fL [facility] HemeAutoSS Platelet mean volume (Bld) [Entitic vol] 8.4 fL Normal 6.4 - 10.8 fL [facility] HemeAutoSS Platelets (Bld) [#/Vol] 204.0 E9/L Normal 150.0 - 500.0 E9/L [facility] HemeAutoSS RBC (Bld) [#/Vol] 4.4 E12/L Normal 4.3 - 5.9 E12/L [facility] HemeAutoSS WBC corrected for nucl RBC Auto (Bld) [#/Vol] 8.0 E9/L Normal 4.0 - 11.0 E9/L [facility] HemeAutoSS Magnesiumon 01-02-2023 Magnesium [Mass/Vol] 1.9 mg/dL Normal 1.3-2.4 [facility] Comment on above: Performed By: #### 2 896661, 72186669, 2938714, 8441934, 3398802, 24449983, 84689298 ####[facility] [address] [place] [address] PT & PTTon 01-02-2023 aPTT Coag (PPP) [Time] 34.5 second(s) Normal 25.1-36.5 [facility] Comment on above: Result Comment: Para meter 15 days - 4 weeks 1 - 5 months 6 - 11 months 1 - 5 years 6 - 10 years 11 - 17 years PTT Mean: 35.4 (27.6-45.6) Mean: 33.5 (24.8-40.7) Mean: 32.4 (25.1-40.7) Mean: 31.6 (24.0-39.2) Mean: 31.6 (26.9-38.7) Mean: 31.0 (24.6-38.4) Pediatric Reference ranges were obtained from a study by osmar Carroll prepared from 1437 samples obtained at 7 different centers using the same coagulation reagent and instrumentation as [facility] Currently there are no coagulation studies available worldwide for children to 14 days, and no normal ranges. Heparin therapeutic range (represented by Anti-Factor Xa activity of 0.2 - 0.4 U/mL) corresponds to PTT of 56.6 - 109.0 sec. Performed By: #### 2 242850, 84626422, 3755411, 7629072, 1464593, 63699418, 70415601 ####[facility] [address] [place] [address] INR Coag (PPP) [Relative time] 1.1 {INR} Invalid Interpretation Code [facility] Comment on above: Result Comment: INR results are specifically intended to assess patients stabilized on long-term Anticoagulation therapy suggested INR?s ?Less Intensive Anticoagulation? 2.0 ? 3.0Conventional Range 3.0 ? 4.5 Performed By: #### 2 148050, 96335257, 7156085, 9888152, 3103875, 98418763, 43269268 ####[facility] [address] [place] [address] PT Coag (PPP) [Time] 12.2 second(s) Normal 9.4-12.5 [facility] Comment on above: Result Comment: 15 d ays - 4 weeks 1 - 5 months 6 -11 months 1- 5 years 6-10 years 11 -17 years Mean: 11.2 (9.5-12.6) Mean: 11.0 (9.7-12.8) Mean: 11.0 (9.8-13.0) Mean: 11.3 (9.9-13.4) Mean: 11.7 (10.0-14.6) Mean: 11.8 (10.0 - 14.1) Pediatric Reference ranges were obtained from a study by osmar Carroll prepared from 1437 samples obtained at 7 different centers using the same coagulation reagent and instrumentation as [facility] Currently there are no coagulation studies available worldwide for children to 14 days, and no normal ranges. Performed By: #### 2 294919, 73217231, 8723909, 2930845, 3299086, 03121789, 30197463 ####[facility] [address] [place] [address] Pre-Arrival Noteon 3 Pre-Arrival Note Normal [facility] Pre-Arrival Note Normal [facility] Troponin 0 Hr.on 01-02-2023 Troponin I.cardiac [Mass/Vol] 4.90 pg/mL Low 10.10-27.10 [facility] Comment on above: Result Comment: The 95% CI (Confidence Interval) PPV (Positive Predictive Value) for myocardial infarction in females is 38 pg/mL, in males 51 pg/mL. The results should be used in conjunction with clinical conditions of myocardial infarction.(Access High Sensitivity Troponin I Instructions For Use, [employer], September 2017) Performed By: #### 2 858292, 08651778, 3055950, 3572127, 9550124, 84172779, 33965538 ####[facility] [address] [place] [address] XR Chest Single Viewon 01-02 XR Chest Single View Normal [facility] eGFRon 01-02-2023 GFR/1.73 sq M.predicted among non-blacks MDRD (S/P/Bld) [Vol rate/Area] 129 mL/min/1.73 m2 Normal >=59 [facility] Comment on above: Order Comment: Order added by Discern Expert. Result Comment: Surveillance Sensor Officer justin kidney disease could be indicated at eGFR's of less than 60 mL/min/1.73m2. Kidney failure is indicated at less than 15 mL/min/1.73m2. Performed By: #### 2 762436, 06770897, 8787511, 5954710, 9876414, 69873263, 20309699 ####[facility] [address] [place] [address] SARS coronavirus 2 RNAon SARS-CoV-2 (COVID-19) RNA MOISES+probe Ql (Resp) Not detected Normal Not Detected [facility] Comment on above: Order Comment: This assay has received FDA Emergency Use Authorization (EUA) and is only authorized for the duration of time that circumstances exist to justify the authorization of the emergency use of in vitro diagnostic tests for the detection of SARS-CoV-2 virus and/or diagnosis of COVID-19 infection under section 564(b)(1) of the Act, 21 U.S.C. 360bbb-3(b)(1). This assay is an in vitro diagnostic nucleic acid amplification test for the qualitative detection of SARS-CoV-2 from nasopharyngeal specimens and has been validated for use at [facility]. Negative results do not preclude COVID-19 infections and should not be used as the sole basis for diagnosis, treatment, or other management decisions. Performed By: #### 2 4323-8 #### CARLTON Barragan ([id number]) [facility] ([facility]) [address] [place] [address] SARS-CoV-2 (COVID-19) RNA NA A+probe Ql (Resp)on 12-16-2022 Interpretation and review of laboratory results Normal [facility] This assay has recei laquita FDA Emergency Use Authorization (EUA) and is only authorized for the duration of time that circumstances exist to justify the authorization of the emergency use of in vitro diagnostic tests for the detection of SARS-CoV-2 virus and/or diagnosis of COVID-19 infection under section 564(b)(1) of the Act, 21 U.S.C. 360bbb-3(b)(1). This assay is an in vitro diagnostic nucleic acid amplification test for the qualitative detection of SARS-CoV-2 from nasopharyngeal specimens and has been validated for use at [facility]. Negative results do not preclude COVID-19 infections and should not be used as the sole basis for diagnosis, treatment, or other management decisions. [facility] Sars-CoV-2 PCR, Screen Asymp tomaticon 12-16-2022 SARS-CoV-2 (COVID-19) RNA MOISES+probe Ql (Resp) Not detected Not Detected [facility] ACUTE TOXICOLOGY PANEL, BLOO Don 12-15-2022 Acetaminophen [Mass/Vol] ug/mL Normal 10.0-30.0 [facility] Comment on above: Performed By: #### D RUBL #### CARLTON Barragan ([id number]) [facility] ([facility]) [address] [place] [address] Ethanol [Mass/Vol] mg/dL Normal <=10 [facility] Comment on above: Performed By: #### D RUBL #### CARLTON Barragan ([id number]) [facility] ([facility]) [address] [place] [address] Salicylates [Mass/Vol] mg/dL Normal 4-20 [facility] Comment on above: Performed By: #### Juan RUBL #### CARLTON Barragan ([id number]) [facility] ([facility]) [address] [place] [address] CBC W Auto Differential pane l (Bld)on 12-15-2022 Basophils (Bld) [#/Vol] 0.02 x10*3/uL Normal 0.00-0.10 [facility] Comment on above: Result Comment: Auto mated WBC differential has been confirmed by manual smear. Performed By: #### 2 4323-8 #### CARLTON Barragan ([id number]) [facility] ([facility]) [address] [place] [address] Basophils/100 WBC (Bld) 0.3 % Normal 0.0-2.0 [facility] Comment on above: Performed By: #### 2 4323-8 #### CARLTON Barragan ([id number]) [facility] ([facility]) [address] [place] [address] Eosinophils (Bld) [#/Vol] 0.08 x10*3/uL Normal 0.00-0.70 [facility] Comment on above: Performed By: #### 2 4323-8 #### CARLTON Barragan ([id number]) [facility] ([facility]) [address] [place] [address] Eosinophils/100 WBC (Bld) 1.4 % Normal 0.0-6.0 [facility] Comment on above: Performed By: #### 2 4323-8 #### CARLTON Barragan ([id number]) [facility] ([facility]) [address] [place] [address] Erythrocyte distribution width (RBC) [Ratio] 12.4 % Normal 11.5-14.5 [facility] Comment on above: Performed By: #### 2 4323-8 #### CARLTON Barragan ([id number]) [facility] ([facility]) [address] [place] [address] Hematocrit (Bld) [Volume fraction] 39.4 % Normal 36.0-46.0 [facility] Comment on above: Performed By: #### 2 432-8 #### CARLTON Barragan ([id number]) [facility] ([facility]) [address] [place] [address] Hemoglobin (Bld) [Mass/Vol] 13.8 g/dL Normal 12.0-16.0 [facility] Comment on above: Performed By: #### 2 432-8 #### CARLTON Barragan ([id number]) [facility] ([facility]) [address] [place] [address] Immature granulocytes (Bld) [#/Vol] 0.02 x10*3/uL Normal 0.00-0.70 [facility] Comment on above: Performed By: #### 2 4323-8 #### CARLTON Barragan ([id number]) [facility] ([facility]) [address] [place] [address] Immature granulocytes/100 WBC (Bld) 0.3 % Normal 0.0-0.9 [facility] Comment on above: Result Comment: Jennifer ture Granulocyte Count (IG) includes promyelocytes, myelocytes and metamyelocytes but does not include bands. Percent differential counts (%) should be interpreted in the context of the absolute cell counts (cells/UL). Performed By: #### 2 4323-8 #### CARLTON Barragan ([id number]) [facility] ([facility]) [address] [place] [address] Lymphocytes (Bld) [#/Vol] 1.92 x10*3/uL Normal 1.20-4.80 [facility] Comment on above: Performed By: #### 2 4323-8 #### CARLTON Barragan ([id number]) [facility] ([facility]) [address] [place] [address] Lymphocytes/100 WBC (Bld) 32.6 % Normal 13.0-44.0 [facility] Comment on above: Performed By: #### 2 432-8 #### CARLTON Barragan ([id number]) [facility] ([facility]) [address] [place] [address] [facility] (RBC) [Entitic mass] 34.4 pg High 26.0-34.0 [facility] Comment on above: Performed By: #### 2 432-8 #### CARLTON Barragan ([id number]) [facility] ([facility]) [address] [place] [address] 30512 MCHC (RBC) [Mass/Vol] 35.0 g/dL Normal 32.0-36.0 [facility] Comment on above: Performed By: #### 2 432-8 #### CARLTON Barragan ([id number]) [facility] ([facility]) [address] [place] [address] 22042 MCV (RBC) [Entitic vol] 98 fL Normal 80-100 [facility] Comment on above: Performed By: #### 2 4323-8 #### CARLTON Barragan ([id number]) [facility] ([facility]) [address] [place] [address] 26692 Monocytes (Bld) [#/Vol] 0.22 x10*3/uL Normal 0.10-1.00 [facility] Comment on above: Performed By: #### 2 432-8 #### CARLTON Barragan ([id number]) [facility] ([facility]) [address] [place] [address] 78570 Monocytes/100 WBC (Bld) 3.7 % Normal 2.0-10.0 [facility] Comment on above: Performed By: #### 2 432-8 #### CARLTON Barragan ([id number]) [facility] ([facility]) [address] [place] [address] 98425 Neutrophils (Bld) [#/Vol] 3.63 x10*3/uL Normal 1.20-7.70 [facility] Comment on above: Result Comment: Perc ent differential counts (%) should be interpreted in the context of the absolute cell counts (cells/uL). Performed By: #### 2 4323-8 #### CARLTON Barragan ([id number]) [facility] ([facility]) [address] [place] [address] 12582 Neutrophils/100 WBC (Bld) 61.7 % Normal 40.0-80.0 [facility] Comment on above: Performed By: #### 2 4323-8 #### CARLTON Barragan ([id number]) [facility] ([facility]) [address] [place] [address] 60121 Nucleated RBC/100 WBC (Bld) [Ratio] 0.0 /100 WBCs Normal 0.0-0.0 [facility] Comment on above: Performed By: #### 2 4323-8 #### CARLTON Barragan ([id number]) [facility] ([facility]) [address] [place] [address] 07301 Platelets (Bld) [#/Vol] 89 x10*3/uL Low 150-450 [facility] Comment on above: Result Comment: Plat elet count verified by smear review. Performed By: #### 2 4323-8 #### CARLTON Barragan ([id number]) [facility] ([facility]) [address] [place] [address] 02857 RBC (Bld) [#/Vol] 4.01 x10*6/uL Normal 4.00-5.20 [facility] Comment on above: Performed By: #### 2 4323-8 #### CARLTON Barragan ([id number]) [facility] ([facility]) [address] [place] [address] 96094 WBC (Bld) [#/Vol] 5.9 x10*3/uL Normal 4.4-11.3 [facility] Comment on above: Performed By: #### 2 4323-8 #### CARLTON Barragan ([id number]) [facility] ([facility]) [address] [place] [address] 34537 Comprehensive metabolic 2000 panelon 12-15-2022 Albumin BCP dye [Mass/Vol] 4.3 g/dL Normal 3.4-5.0 [facility] Comment on above: Performed By: #### 2 4323-8 #### CARLTON Barragan ([id number]) [facility] ([facility]) [address] [place] [address] 61499 ALP [Catalytic activity/Vol] 131 U/L High 33-110 [facility] Comment on above: Performed By: #### 2 432-8 #### CARLTON Barragan ([id number]) [facility] ([facility]) [address] [place] [address] 26427 ALT With P-5'-P [Catalytic activity/Vol] 113 U/L High 7-45 [facility] Comment on above: Result Comment: Tran ents treated with Sulfasalazine may generate falsely decreased results for ALT. Performed By: #### 2 4323-8 #### CARLTON Barragan ([id number]) [facility] ([facility]) [address] [place] [address] 72233 Anion gap [Moles/Vol] 11 mmol/L Normal 10-20 [facility] Comment on above: Performed By: #### 2 4323-8 #### CARLTON Barragan ([id number]) [facility] ([facility]) [address] [place] [address] 55079 AST With P-5'-P [Catalytic activity/Vol] 180 U/L High 9-39 [facility] Comment on above: Performed By: #### 2 4323-8 #### CARLTON Barragan ([id number]) [facility] ([facility]) [address] [place] [address] 40667 Bilirubin [Mass/Vol] 1.0 mg/dL Normal 0.0-1.2 [facility] Comment on above: Performed By: #### 2 4323-8 #### CARLTON Barragan ([id number]) [facility] ([facility]) [address] [place] [address] 75448 Calcium [Mass/Vol] 9.9 mg/dL Normal 8.6-10.3 [facility] Comment on above: Performed By: #### 2 4323-8 #### CARLTON Barragan ([id number]) [facility] ([facility]) [address] [place] [address] 21540 Chloride [Moles/Vol] 99 mmol/L Normal 98-107 [facility] Comment on above: Performed By: #### 2 4323-8 #### CARLTON Barragan ([id number]) [facility] ([facility]) [address] [place] [address] 47584 CO2 [Moles/Vol] 27 mmol/L Normal 21-32 [facility] Comment on above: Performed By: #### 2 4323-8 #### CARLTON Barragan ([id number]) [facility] ([facility]) [address] [place] [address] 48493 Creatinine [Mass/Vol] 0.68 mg/dL Normal 0.50-1.05 [facility] Comment on above: Performed By: #### 2 4323-8 #### CARLTON Barragan ([id number]) [facility] ([facility]) [address] [place] [address] 05293 GFR/1.73 sq M.predicted MDRD (S/P/Bld) [Vol rate/Area] mL/min/{1.73_m2} Normal >60 [facility] Comment on above: Result Comment: Calc ulations of estimated GFR are performed using the 2020 CKD-EPI Study Refit equation without the race variable for the IDMS-Traceable creatinine methods. https://jasn.asnjournals.org/content/early//ASN.617048 5558 Performed By: #### 2 4323-8 #### CARLTON Barragan ([id number]) [facility] ([facility]) [address] [place] [address] 26645 Glucose [Mass/Vol] 81 mg/dL Normal 74-99 [facility] Comment on above: Performed By: #### 2 4323-8 #### CARLTON Barragan ([id number]) [facility] ([facility]) [address] [place] [address] 17529 Potassium [Moles/Vol] 4.2 mmol/L Normal 3.5-5.3 [facility] Comment on above: Performed By: #### 2 4323-8 #### CARLTON Barragan ([id number]) [facility] ([facility]) [address] [place] [address] 35993 Protein [Mass/Vol] 8.3 g/dL High 6.4-8.2 [facility] Comment on above: Performed By: #### 2 4323-8 #### CARLTON Barargan ([id number]) [facility] ([facility]) [address] [place] [address] 60892 Sodium [Moles/Vol] 133 mmol/L Low 136-145 [facility] Comment on above: Performed By: #### 2 4323-8 #### CARLTON Barragan ([id number]) [facility] ([facility]) [address] [place] [address] 30899 Urea nitrogen [Mass/Vol] 10 mg/dL Normal 6-23 [facility] Comment on above: Performed By: #### 2 4323-8 #### CARLTON Barragan ([id number]) [facility] ([facility]) [address] [place] [address] 27488 DRUG SCREEN,URINEon 12-16-19 23 Amphetamines Screen Ql (U) Negative Normal Presumptive Negative [facility] Comment on above: Order Comment: Drug screen results are presumptive and should not be used to assesscompliance with prescribed medication. Contact the performing [facility] laboratoryto add-on definitive confirmatory testing if clinically indicated.Toxicology screening results are reported qualitatively. The concentration must???be greater than or equal to the cutoff to be reported as positive. The concentrationat which the screening test can detect an individual drug or metabolite varies.The absence of expected drug(s) and/or drug metabolite(s) may indicate non-compliance,inappropriate timing of specimen collection relative to drug administration, poor drugabsorption, diluted/adulterated urine, or limitations of testing. For medical purposesonly; not valid for forensic use.Interpretive questions should be directed to the laboratory medical directors. Result Comment: CUTO FF LEVEL: 500 NG/ML Cross-reactivity has been reported with high concentrations of the following drugs: buproprion, chloroquine, chlorpromazine, ephedrine, mephentermine, fenfluramine, phentermine, phenylpropanolamine, pseudoephedrine, and propranolol. Performed By: #### 2 4323-8 #### CARLTON Barragan ([id number]) [facility] ([facility]) [address] [place] [address] 99610 Barbiturates Screen Ql (U) Positive Abnormal Presumptive Negative [facility] Comment on above: Order Comment: Drug screen results are presumptive and should not be used to assesscompliance with prescribed medication. Contact the performing [facility] laboratoryto add-on definitive confirmatory testing if clinically indicated.Toxicology screening results are reported qualitatively. The concentration must???be greater than or equal to the cutoff to be reported as positive. The concentrationat which the screening test can detect an individual drug or metabolite varies.The absence of expected drug(s) and/or drug metabolite(s) may indicate non-compliance,inappropriate timing of specimen collection relative to drug administration, poor drugabsorption, diluted/adulterated urine, or limitations of testing. For medical purposesonly; not valid for forensic use.Interpretive questions should be directed to the laboratory medical directors. Result Comment: CUTO FF LEVEL: 200 NG/ML Performed By: #### 2 4323-8 #### CARLTON Barragan ([id number]) [facility] ([facility]) [address] [place] [address] 54895 Benzodiazepines Ql (U) Positive Abnormal Presumptive Negative [facility] Comment on above: Order Comment: Drug screen results are presumptive and should not be used to assesscompliance with prescribed medication. Contact the performing [facility] laboratoryto add-on definitive confirmatory testing if clinically indicated.Toxicology screening results are reported qualitatively. The concentration must???be greater than or equal to the cutoff to be reported as positive. The concentrationat which the screening test can detect an individual drug or metabolite varies.The absence of expected drug(s) and/or drug metabolite(s) may indicate non-compliance,inappropriate timing of specimen collection relative to drug administration, poor drugabsorption, diluted/adulterated urine, or limitations of testing. For medical purposesonly; not valid for forensic use.Interpretive questions should be directed to the laboratory medical directors. Result Comment: CUTO FF LEVEL: 200 NG/ML Performed By: #### 2 4323-8 #### CARLTON Barragan ([id number]) [facility] ([facility]) [address] [place], [place] [id number] Benzoylecgonine Screen Ql (U) Negative Normal Presumptive Negative [facility] Comment on above: Order Comment: Drug screen results are presumptive and should not be used to assesscompliance with prescribed medication. Contact the performing [facility] laboratoryto add-on definitive confirmatory testing if clinically indicated.Toxicology screening results are reported qualitatively. The concentration must???be greater than or equal to the cutoff to be reported as positive. The concentrationat which the screening test can detect an individual drug or metabolite varies.The absence of expected drug(s) and/or drug metabolite(s) may indicate non-compliance,inappropriate timing of specimen collection relative to drug administration, poor drugabsorption, diluted/adulterated urine, or limitations of testing. For medical purposesonly; not valid for forensic use.Interpretive questions should be directed to the laboratory medical directors. Result Comment: CUTO FF LEVEL: 150 NG/ML Performed By: #### 2 4323-8 #### CARLTON Barragan ([id number]) [facility] ([facility]) [address] [place] [address] 67397 Cannabinoids Screen Ql (U) Negative Normal Presumptive Negative [facility] Comment on above: Order Comment: Drug screen results are presumptive and should not be used to assesscompliance with prescribed medication. Contact the performing [facility] laboratoryto add-on definitive confirmatory testing if clinically indicated.Toxicology screening results are reported qualitatively. The concentration must???be greater than or equal to the cutoff to be reported as positive. The concentrationat which the screening test can detect an individual drug or metabolite varies.The absence of expected drug(s) and/or drug metabolite(s) may indicate non-compliance,inappropriate timing of specimen collection relative to drug administration, poor drugabsorption, diluted/adulterated urine, or limitations of testing. For medical purposesonly; not valid for forensic use.Interpretive questions should be directed to the laboratory medical directors. Result Comment: CUTO FF LEVEL: 50 NG/ML Performed By: #### 2 4323-8 #### CARLTON Barragan ([id number]) [facility] ([facility]) [address] [place] [address] fentaNYL+Norfentanyl Screen Ql (U) Negative Normal Presumptive Negative [facility] Comment on above: Order Comment: Drug screen results are presumptive and should not be used to assesscompliance with prescribed medication. Contact the performing [facility] laboratoryto add-on definitive confirmatory testing if clinically indicated.Toxicology screening results are reported qualitatively. The concentration must???be greater than or equal to the cutoff to be reported as positive. The concentrationat which the screening test can detect an individual drug or metabolite varies.The absence of expected drug(s) and/or drug metabolite(s) may indicate non-compliance,inappropriate timing of specimen collection relative to drug administration, poor drugabsorption, diluted/adulterated urine, or limitations of testing. For medical purposesonly; not valid for forensic use.Interpretive questions should be directed to the laboratory medical directors. Result Comment: CUTO FF LEVEL: 5 NG/ML Performed By: #### 2 4323-8 #### CARLTON Barragan ([id number]) [facility] ([facility]) [address] [place] [address] 51001 Opiates Screen Ql (U) Negative Normal Presum ptive Negative [facility] Comment on above: Order Comment: Drug screen results are presumptive and should not be used to assesscompliance with prescribed medication. Contact the performing [facility] laboratoryto add-on definitive confirmatory testing if clinically indicated.Toxicology screening results are reported qualitatively. The concentration must???be greater than or equal to the cutoff to be reported as positive. The concentrationat which the screening test can detect an individual drug or metabolite varies.The absence of expected drug(s) and/or drug metabolite(s) may indicate non-compliance,inappropriate timing of specimen collection relative to drug administration, poor drugabsorption, diluted/adulterated urine, or limitations of testing. For medical purposesonly; not valid for forensic use.Interpretive questions should be directed to the laboratory medical directors. Result Comment: CUTO FF LEVEL: 300 NG/ML The opiate screen does not detect fentanyl, meperidine, or tramadol. Oxycodone is not consistently detected (refer to Oxycodone Screen, Urine result). Performed By: #### 2 4323-8 #### CARLTON Barragan ([id number]) [facility] ([facility]) [address] [place] [address] oxyCODONE+oxyMORphone Screen Ql (U) Negative Normal Presumptive Negative [facility] Comment on above: Order Comment: Drug screen results are presumptive and should not be used to assesscompliance with prescribed medication. Contact the performing [facility] laboratoryto add-on definitive confirmatory testing if clinically indicated.Toxicology screening results are reported qualitatively. The concentration must???be greater than or equal to the cutoff to be reported as positive. The concentrationat which the screening test can detect an individual drug or metabolite varies.The absence of expected drug(s) and/or drug metabolite(s) may indicate non-compliance,inappropriate timing of specimen collection relative to drug administration, poor drugabsorption, diluted/adulterated urine, or limitations of testing. For medical purposesonly; not valid for forensic use.Interpretive questions should be directed to the laboratory medical directors. Result Comment: CUTO FF LEVEL: 100 NG/ML This test will accurately detect both oxycodone and oxymorphone. Performed By: #### 2 4323-8 #### CARLTON Barragan ([id number]) [facility] ([facility]) [address] [place] [address] 05706 Phencyclidine Ql (U) Negative Normal Presump tive Negative [facility] Comment on above: Order Comment: Drug screen results are presumptive and should not be used to assesscompliance with prescribed medication. Contact the performing [facility] laboratoryto add-on definitive confirmatory testing if clinically indicated.Toxicology screening results are reported qualitatively. The concentration must???be greater than or equal to the cutoff to be reported as positive. The concentrationat which the screening test can detect an individual drug or metabolite varies.The absence of expected drug(s) and/or drug metabolite(s) may indicate non-compliance,inappropriate timing of specimen collection relative to drug administration, poor drugabsorption, diluted/adulterated urine, or limitations of testing. For medical purposesonly; not valid for forensic use.Interpretive questions should be directed to the laboratory medical directors. Result Comment: CUTO FF LEVEL: 25 NG/ML Cross-reactivity has been reported with dextromethorphan. Performed By: #### 2 4323-8 #### CARLTON Barragan ([id number]) [facility] ([facility]) [address] [place] [address] Amphetamines Screen Ql (U) Negative Normal Presumptive Negative [facility] Comment on above: Order Comment: Drug screen results are presumptive and should not be used to assesscompliance with prescribed medication. Contact the performing [facility] laboratoryto add-on definitive confirmatory testing if clinically indicated.Toxicology screening results are reported qualitatively. The concentration must???be greater than or equal to the cutoff to be reported as positive. The concentrationat which the screening test can detect an individual drug or metabolite varies.The absence of expected drug(s) and/or drug metabolite(s) may indicate non-compliance,inappropriate timing of specimen collection relative to drug administration, poor drugabsorption, diluted/adulterated urine, or limitations of testing. For medical purposesonly; not valid for forensic use.Interpretive questions should be directed to the laboratory medical directors. Result Comment: CUTO FF LEVEL: 500 NG/ML Cross-reactivity has been reported with high concentrations of the following drugs: buproprion, chloroquine, chlorpromazine, ephedrine, mephentermine, fenfluramine, phentermine, phenylpropanolamine, pseudoephedrine, and propranolol. Performed By: #### 2 4323-8 #### CARLTON Barragan ([id number]) [facility] ([facility]) [address] [place] [address] Barbiturates Screen Ql (U) Negative Normal Presumptive Negative [facility] Comment on above: Order Comment: Drug screen results are presumptive and should not be used to assesscompliance with prescribed medication. Contact the performing [facility] laboratoryto add-on definitive confirmatory testing if clinically indicated.Toxicology screening results are reported qualitatively. The concentration must???be greater than or equal to the cutoff to be reported as positive. The concentrationat which the screening test can detect an individual drug or metabolite varies.The absence of expected drug(s) and/or drug metabolite(s) may indicate non-compliance,inappropriate timing of specimen collection relative to drug administration, poor drugabsorption, diluted/adulterated urine, or limitations of testing. For medical purposesonly; not valid for forensic use.Interpretive questions should be directed to the laboratory medical directors. Result Comment: CUTO FF LEVEL: 200 NG/ML Performed By: #### 2 4323-8 #### CARLTON Barragan ([id number]) [facility] ([facility]) [address] [place] [address] 22801 Benzodiazepines Ql (U) Positive Abnormal Presumptive Negative [facility] Comment on above: Order Comment: Drug screen results are presumptive and should not be used to assesscompliance with prescribed medication. Contact the performing [facility] laboratoryto add-on definitive confirmatory testing if clinically indicated.Toxicology screening results are reported qualitatively. The concentration must???be greater than or equal to the cutoff to be reported as positive. The concentrationat which the screening test can detect an individual drug or metabolite varies.The absence of expected drug(s) and/or drug metabolite(s) may indicate non-compliance,inappropriate timing of specimen collection relative to drug administration, poor drugabsorption, diluted/adulterated urine, or limitations of testing. For medical purposesonly; not valid for forensic use.Interpretive questions should be directed to the laboratory medical directors. Result Comment: CUTO FF LEVEL: 200 NG/ML Performed By: #### 2 4323-8 #### CARLTON Barragan ([id number]) [facility] ([facility]) [address] [place] [address] 36406 Benzoylecgonine Screen Ql (U) Negative Normal Presumptive Negative [facility] Comment on above: Order Comment: Drug screen results are presumptive and should not be used to assesscompliance with prescribed medication. Contact the performing [facility] laboratoryto add-on definitive confirmatory testing if clinically indicated.Toxicology screening results are reported qualitatively. The concentration must???be greater than or equal to the cutoff to be reported as positive. The concentrationat which the screening test can detect an individual drug or metabolite varies.The absence of expected drug(s) and/or drug metabolite(s) may indicate non-compliance,inappropriate timing of specimen collection relative to drug administration, poor drugabsorption, diluted/adulterated urine, or limitations of testing. For medical purposesonly; not valid for forensic use.Interpretive questions should be directed to the laboratory medical directors. Result Comment: CUTO FF LEVEL: 150 NG/ML Performed By: #### 2 4323-8 ###Dwight CARLTON Barragan ([id number]) [facility] ([facility]) [address] [place] [address] 23596 Cannabinoids Screen Ql (U) Negative Normal Presumptive Negative [facility] Comment on above: Order Comment: Drug screen results are presumptive and should not be used to assesscompliance with prescribed medication. Contact the performing [facility] laboratoryto add-on definitive confirmatory testing if clinically indicated.Toxicology screening results are reported qualitatively. The concentration must???be greater than or equal to the cutoff to be reported as positive. The concentrationat which the screening test can detect an individual drug or metabolite varies.The absence of expected drug(s) and/or drug metabolite(s) may indicate non-compliance,inappropriate timing of specimen collection relative to drug administration, poor drugabsorption, diluted/adulterated urine, or limitations of testing. For medical purposesonly; not valid for forensic use.Interpretive questions should be directed to the laboratory medical directors. Result Comment: CUTO FF LEVEL: 50 NG/ML Performed By: #### 2 4323-8 #### CARLTON Barragan ([id number]) [facility] ([facility]) [address] [place] [address] 87797 fentaNYL+Norfentanyl Screen Ql (U) Negative Normal Presumptive Negative [facility] Comment on above: Order Comment: Drug screen results are presumptive and should not be used to assesscompliance with prescribed medication. Contact the performing [facility] laboratoryto add-on definitive confirmatory testing if clinically indicated.Toxicology screening results are reported qualitatively. The concentration must???be greater than or equal to the cutoff to be reported as positive. The concentrationat which the screening test can detect an individual drug or metabolite varies.The absence of expected drug(s) and/or drug metabolite(s) may indicate non-compliance,inappropriate timing of specimen collection relative to drug administration, poor drugabsorption, diluted/adulterated urine, or limitations of testing. For medical purposesonly; not valid for forensic use.Interpretive questions should be directed to the laboratory medical directors. Result Comment: CUTO FF LEVEL: 5 NG/ML Performed By: #### 2 4323-8 #### CARLTON Barragan ([id number]) [facility] ([facility]) [address] [place] [address] 05782 Opiates Screen Ql (U) Negative Normal Presum ptive Negative [facility] Comment on above: Order Comment: Drug screen results are presumptive and should not be used to assesscompliance with prescribed medication. Contact the performing [facility] laboratoryto add-on definitive confirmatory testing if clinically indicated.Toxicology screening results are reported qualitatively. The concentration must???be greater than or equal to the cutoff to be reported as positive. The concentrationat which the screening test can detect an individual drug or metabolite varies.The absence of expected drug(s) and/or drug metabolite(s) may indicate non-compliance,inappropriate timing of specimen collection relative to drug administration, poor drugabsorption, diluted/adulterated urine, or limitations of testing. For medical purposesonly; not valid for forensic use.Interpretive questions should be directed to the laboratory medical directors. Result Comment: CUTO FF LEVEL: 300 NG/ML The opiate screen does not detect fentanyl, meperidine, or tramadol. Oxycodone is not consistently detected (refer to Oxycodone Screen, Urine result). Performed By: #### 2 4323-8 #### CARLTON Barragan ([id number]) [facility] ([facility]) [address] [place] [address] 81656 oxyCODONE+oxyMORphone Screen Ql (U) Negative Normal Presumptive Negative [facility] Comment on above: Order Comment: Drug screen results are presumptive and should not be used to assesscompliance with prescribed medication. Contact the performing [facility] laboratoryto add-on definitive confirmatory testing if clinically indicated.Toxicology screening results are reported qualitatively. The concentration must???be greater than or equal to the cutoff to be reported as positive. The concentrationat which the screening test can detect an individual drug or metabolite varies.The absence of expected drug(s) and/or drug metabolite(s) may indicate non-compliance,inappropriate timing of specimen collection relative to drug administration, poor drugabsorption, diluted/adulterated urine, or limitations of testing. For medical purposesonly; not valid for forensic use.Interpretive questions should be directed to the laboratory medical directors. Result Comment: CUTO FF LEVEL: 100 NG/ML This test will accurately detect both oxycodone and oxymorphone. Performed By: #### 2 4323-8 #### CARLTON Barragan ([id number]) [facility] ([facility]) [address] [place] [address] 56690 Phencyclidine Ql (U) Negative Normal Presump tive Negative [facility] Comment on above: Order Comment: Drug screen results are presumptive and should not be used to assesscompliance with prescribed medication. Contact the performing [facility] laboratoryto add-on definitive confirmatory testing if clinically indicated.Toxicology screening results are reported qualitatively. The concentration must???be greater than or equal to the cutoff to be reported as positive. The concentrationat which the screening test can detect an individual drug or metabolite varies.The absence of expected drug(s) and/or drug metabolite(s) may indicate non-compliance,inappropriate timing of specimen collection relative to drug administration, poor drugabsorption, diluted/adulterated urine, or limitations of testing. For medical purposesonly; not valid for forensic use.Interpretive questions should be directed to the laboratory medical directors. Result Comment: CUTO FF LEVEL: 25 NG/ML Cross-reactivity has been reported with dextromethorphan. Performed By: #### 2 4323-8 #### CARLTON Barragan ([id number]) [facility] ([facility]) [address] [place] [address] 71919 Drug Screen, Urineon 023 Amphetamines Screen Ql (U) Negative Presumptive Negative [facility] Comment on above: CUTOFF LEVEL: 500 NG /ML Cross-reactivity has been reported with high concentrations of the following drugs: buproprion, chloroquine, chlorpromazine, ephedrine, mephentermine, fenfluramine, phentermine, phenylpropanolamine, pseudoephedrine, and propranolol. Barbiturates Screen Ql (U) Positive Abnormal Presumptive Negative [facility] Comment on above: CUTOFF LEVEL: 200 NG /ML Benzodiazepines Ql (U) Positive Abnormal Presumptive Negative [facility] Comment on above: CUTOFF LEVEL: 200 NG /ML Benzoylecgonine Screen Ql (U) Negative Presumptive Negative [facility] Comment on above: CUTOFF LEVEL: 150 NG /ML Cannabinoids Screen Ql (U) Negative Presumptive Negative [facility] Comment on above: CUTOFF LEVEL: 50 NG/ ML fentaNYL+Norfentanyl Screen Ql (U) Negative Presumptive Negative [facility] Comment on above: CUTOFF LEVEL: 5 NG/M L Interpretation and review of laboratory results Abnormal [facility] Opiates Screen Ql (U) Negative Presum ptive Negative [facility] Comment on above: CUTOFF LEVEL: 300 NG /ML The opiate screen does not detect fentanyl, meperidine, or tramadol. Oxycodone is not consistently detected (refer to Oxycodone Screen, Urine result). oxyCODONE+oxyMORphone Screen Ql (U) Negative Presumptive Negative [facility] Comment on above: CUTOFF LEVEL: 100 NG /ML This test will accurately detect both oxycodone and oxymorphone. Phencyclidine Ql (U) Negative Presump tive Negative [facility] Comment on above: CUTOFF LEVEL: 25 NG/ ML Cross-reactivity has been reported with dextromethorphan. Drug screen results are presumptive and should not be used to assess compliance with prescribed medication. Contact the performing [facility] laboratory to add-on definitive confirmatory testing if clinically indicated. Toxicology screening results are reported qualitatively. The concentration must be greater than or equal to the cutoff to be reported as positive. The concentration at which the screening test can detect an individual drug or metabolite varies. The absence of expected drug(s) and/or drug metabolite(s) may indicate non-compliance, inappropriate timing of specimen collection relative to drug administration, poor drug absorption, diluted/adulterated urine, or limitations of testing. For medical purposes only; not valid for forensic use. Interpretive questions should be directed to the laboratory medical directors. [facility] HCG ( test) IA.rapi d Ql (U)on 12-15-2022 HCG ( test) Ql (U) Negative Normal NEGATIVE [facility] Comment on above: Performed By: #### 8 0384-1 #### CARLTON Barragan ([id number]) [facility] (C) [address] [place] [address] RBC shape Nom (Bld)on 2022 RBC morphology finding Nom (Bld) No significant RBC morphology present Normal [facility] Comment on above: Performed By: #### 2 4323-8 #### CARLTON Barragan ([id number]) [facility] ([facility]) [address] [place] [address] 16663 Urinalysis complete panel (U )on 12-15-2022 Appearance (U) Clear Normal Clear [facility] Comment on above: Performed By: #### 2 4356-8 #### CARLTON Barragan ([id number]) [facility] ([facility]) [address] [place] [address] 71042 Bilirubin (U) [Mass/Vol] Negative Normal NEGATIVE [facility] Comment on above: Performed By: #### 2 4356-8 #### CARLTON Barragan ([id number]) [facility] ([facility]) [address] [place] [address] 30827 Color (U) Yellow Normal Straw, Yellow [facility] Comment on above: Performed By: #### 2 4356-8 #### CARLTON Barragan ([id number]) [facility] ([facility]) [address] [place] [address] 92751 Glucose Auto test strip (U) [Mass/Vol] Negative Normal NEGATIVE [facility] Comment on above: Performed By: #### 2 4356-8 #### CARLTON Barragan ([id number]) [facility] ([facility]) [address] [place] [address] 65809 Ketones (U) [Mass/Vol] Negative Normal NEGATIVE [facility] Comment on above: Performed By: #### 2 4356-8 #### CARLTON Barargan ([id number]) [facility] ([facility]) [address] [place] [address], [place] [id number] Leukocyte esterase Auto test strip Ql (U) Negative Normal NEGATIVE [facility] Comment on above: Performed By: #### 2 4356-8 #### CARLTON Barragan ([id number]) [facility] ([facility]) [address] [place] [address], [place] [id number] Nitrite Auto test strip Ql (U) Negative Normal NEGATIVE [facility] Comment on above: Performed By: #### 2 4356-8 #### CARLTON Barragan ([id number]) [facility] ([facility]) [address] [place] [address] 49634 pH (U) 8.0 [pH] Normal 5.0, 5.5, 6.0, 6.5, 7.0, 7.5, 8.0 [facility] Comment on above: Performed By: #### 2 4356-8 #### CARLTON Barragan ([id number]) [facility] ([facility]) [address] [place] [address] Protein (U) [Mass/Vol] Negative Normal NEGATIVE [facility] Comment on above: Performed By: #### 2 4356-8 #### CARLTON Barragan ([id number]) [facility] ([facility]) [address] [place] [address] RBC (U) [#/Vol] Negative Normal NEGATIVE [facility] Comment on above: Performed By: #### 2 4356-8 #### CARLTON Barragan ([id number]) [facility] ([facility]) [address] [place] [address] Specific gravity (U) [Rel density] 1.006 Normal 1.005-1.035 [facility] Comment on above: Performed By: #### 2 4356-8 #### CARLTON Barragan ([id number]) [facility] ([facility]) [address] [place] [address] Urobilinogen (U) [Mass/Vol] 4.0 mg/dL Normal <2.0 [facility] Comment on above: Result Comment: Some pigments and medications may cause a false positive urobilinogen. Performed By: #### 2 4356-8 #### CARLTON Barragan ([id number]) [facility] ([facility]) [address] [place] [address] Acute Toxicology Panel, Macarena allen 12-14-2022 Acetaminophen [Mass/Vol] ug/mL 10.0 - 30.0 ug/mL [facility] Ethanol [Mass/Vol] mg/dL NINF - 10 mg/dL [facility] Interpretation and review of laboratory results Normal [facility] Salicylates [Mass/Vol] mg/dL 4 - 20 mg/dL [facility] Acute hepatitis 2000 panel ( S)on 12-14-2022 HAV IgM Ql (S) Non-Reactive Normal Nonreactive [facility] Comment on above: Result Comment: Biot in interference may cause falsely decreased results. Patients taking a Biotin dose of up to 5 mg/day should refrain from taking Biotin for 24 hours before sample collection. Providers may contact their local laboratory for further information. Performed By: #### 2 4363-4 #### MERLY Barragan ([id number]) [facility] ([facility]) [address] [place], [place] [id number] HBV core IgM Ql (S) Non-Reactive Normal Nonreactive [facility] Comment on above: Result Comment: Resu lts from patients taking biotin supplements or receiving high-dose biotin therapy should be interpreted with caution due to possible interference with this test. Providers may contact their local laboratory for further information. Performed By: #### 2 4363-4 #### MERLY Barragan ([id number]) [facility] ([facility]) [address] [place] [address] 09328 HBV surface Ag IA Ql Non-Reactive Normal Nonreactive [facility] Comment on above: Result Comment: Biot in interference may cause falsely decreased results. Patients taking a Biotin dose of up to 5 mg/day should refrain from taking Biotin for 24 hours before sample collection. Providers may contact their local laboratory for further information. Performed By: #### 2 4363-4 #### MERLY Barragan ([id number]) [facility] ([facility]) [address] [place] [address] 16081 HCV Ab Ql (S) Reactive Abnormal Nonreactive [facility] Comment on above: Result Comment: HCV antibody detected. HCV RNA PCR has been ordered to evaluate the possibility of a current infection. Results from patients taking biotin supplements or receiving high-dose biotin therapy should be interpreted with caution due to possible interference with this test. Providers may contact their local laboratory for further information. Result has been updated to reportable. Performed By: #### 2 4363-4 #### MERLY Barragan ([id number]) [facility] ([facility]) [address] [place] [address] CBC W Auto Differential pane l (Bld)on 12-14-2022 Basophils (Bld) [#/Vol] 0.02 10*3/uL [facility] Comment on above: Automated WBC differ ential has been confirmed by manual smear. Basophils/100 WBC (Bld) 0.3 % 0.0 - 2.0 % [facility] Eosinophils (Bld) [#/Vol] 0.08 10*3/uL [facility] Eosinophils/100 WBC (Bld) 1.4 % 0.0 - 6.0 % [facility] Erythrocyte distribution width (RBC) [Ratio] 12.4 % 11.5 - 14.5 % [facility] Hematocrit (Bld) [Volume fraction] 39.4 % 36.0 - 46.0 % [facility] Hemoglobin (Bld) [Mass/Vol] 13.8 g/dL 12.0 - 16.0 g/dL [facility] Immature granulocytes (Bld) [#/Vol] 0.02 10*3/uL [facility] Immature granulocytes/100 WBC (Bld) 0.3 % 0.0 - 0.9 % [facility] Comment on above: Immature Granulocyte Count (IG) includes promyelocytes, myelocytes and metamyelocytes but does not include bands. Percent differential counts (%) should be interpreted in the context of the absolute cell counts (cells/UL). Interpretation and review of laboratory results Abnormal [facility] Lymphocytes (Bld) [#/Vol] 1.92 10*3/uL [facility] Lymphocytes/100 WBC (Bld) 32.6 % 13.0 - 44.0 % [facility] MCH (RBC) [Entitic mass] 34.4 pg High 26.0 - 34.0 pg [facility] MCHC (RBC) [Mass/Vol] 35.0 g/dL 32.0 - 36.0 g/dL [facility] MCV (RBC) [Entitic vol] 98 fL 80 - 100 fL [facility] Monocytes (Bld) [#/Vol] 0.22 10*3/uL [facility] Monocytes/100 WBC (Bld) 3.7 % 2.0 - 10.0 % [facility] Neutrophils (Bld) [#/Vol] 3.63 10*3/uL [facility] Comment on above: Percent differential counts (%) should be interpreted in the context of the absolute cell counts (cells/uL). Neutrophils/100 WBC (Bld) 61.7 % 40.0 - 80.0 % [facility] Nucleated RBC/100 WBC (Bld) [Ratio] 0.0 % [facility] Platelets (Bld) [#/Vol] 89 10*3/uL Low [facility] Comment on above: Platelet count verif ied by smear review. RBC (Bld) [#/Vol] 4.01 10*6/uL [facility] WBC (Bld) [#/Vol] 5.9 10*3/uL [facility] Comprehensive metabolic 2000 panelon 12-14-2022 Albumin BCP dye [Mass/Vol] 4.3 g/dL 3.4 - 5.0 g/dL [facility] ALP [Catalytic activity/Vol] 131 U/L High 33 - 110 U/L [facility] ALT With P-5'-P [Catalytic activity/Vol] 113 U/L High 7 - 45 U/L [facility] Comment on above: Patients treated wit h Sulfasalazine may generate falsely decreased results for ALT. Anion gap [Moles/Vol] 11 mmol/L 10 - 2 0 mmol/L [facility] AST With P-5'-P [Catalytic activity/Vol] 180 U/L High 9 - 39 U/L [facility] Bilirubin [Mass/Vol] 1.0 mg/dL 0.0 - 1 .2 mg/dL [facility] Calcium [Mass/Vol] 9.9 mg/dL 8.6 - 10. 3 mg/dL [facility] Chloride [Moles/Vol] 99 mmol/L 98 - 10 7 mmol/L [facility] CO2 [Moles/Vol] 27 mmol/L 21 - 32 mmol/L [facility] Creatinine [Mass/Vol] 0.68 mg/dL 0.50 - 1.05 mg/dL [facility] GFR/1.73 sq M.predicted MDRD (S/P/Bld) [Vol rate/Area] - PINF [facility] Comment on above: Calculations of jerel mated GFR are performed using the 2020 CKD-EPI Study Refit equation without the race variable for the IDMS-Traceable creatinine methods. https://jasn.asnjournals.org/content//ASN.106925 9079 Glucose [Mass/Vol] 81 mg/dL 74 - 99 mg/dL [facility] Interpretation and review of laboratory results Abnormal [facility] Potassium [Moles/Vol] 4.2 mmol/L 3.5 - 5.3 mmol/L [facility] Protein [Mass/Vol] 8.3 g/dL High 6.4 - 8.2 g/dL [facility] Sodium [Moles/Vol] 133 mmol/L Low 136 - 145 mmol/L [facility] Urea nitrogen [Mass/Vol] 10 mg/dL 6 - 23 mg/dL [facility] Albumin BCP dye [Mass/Vol] 4.2 g/dL Normal 3.4-5.0 [facility] Comment on above: Performed By: #### 2 4323-8 #### CARLTON Barragan ([id number]) [facility] ([facility]) [address] [place] [address] ALP [Catalytic activity/Vol] 126 U/L High 33-110 [facility] Comment on above: Performed By: #### 2 4323-8 #### CARLTON Barragan ([id number]) [facility] ([facility]) [address] [place] [address] 92585 ALT With P-5'-P [Catalytic activity/Vol] 109 U/L High 7-45 [facility] Comment on above: Result Comment: Tran ents treated with Sulfasalazine may generate falsely decreased results for ALT. Performed By: #### 2 4323-8 #### CARLTON Barragan ([id number]) [facility] ([facility]) [address] [place] [address] 34402 Anion gap [Moles/Vol] 12 mmol/L Normal 10-20 [facility] Comment on above: Performed By: #### 2 4323-8 #### CARLTON Barragan ([id number]) [facility] ([facility]) [address] [place] [address] 13688 AST With P-5'-P [Catalytic activity/Vol] 172 U/L High 9-39 [facility] Comment on above: Result Comment: MODE RATE HEMOLYSIS DETECTED. The result may be falsely elevated due to hemolysis or other interferents. Clinical correlation is recommended. Repeat testing may be considered. Performed By: #### 2 4323-8 #### CARLTON Barragan ([id number]) [facility] ([facility]) [address] [place] [address] 17143 Bilirubin [Mass/Vol] 1.3 mg/dL High 0.0-1.2 [facility] Comment on above: Performed By: #### 2 4323-8 #### CARLTON Barragan ([id number]) [facility] ([facility]) [address] [place] [address] 49182 Calcium [Mass/Vol] 10.0 mg/dL Normal 8.6-10.3 [facility] Comment on above: Performed By: #### 2 4323-8 #### CARLTON Barragan ([id number]) [facility] ([facility]) [address] [place] [address] 21214 Chloride [Moles/Vol] 100 mmol/L Normal 98-107 [facility] Comment on above: Performed By: #### 2 4323-8 #### CARLTON Barragan ([id number]) [facility] ([facility]) [address] [place] [address] 33502 CO2 [Moles/Vol] 26 mmol/L Normal 21-32 [facility] Comment on above: Performed By: #### 2 4323-8 #### CARLTON Barragan ([id number]) [facility] ([facility]) [address] [place] [address] 23950 Creatinine [Mass/Vol] 0.59 mg/dL Normal 0.50-1.05 [facility] Comment on above: Performed By: #### 2 4323-8 #### CARLTON Barragan ([id number]) [facility] ([facility]) [address] [place] [address] 18890 GFR/1.73 sq M.predicted MDRD (S/P/Bld) [Vol rate/Area] mL/min/{1.73_m2} Normal >60 [facility] Comment on above: Result Comment: Calc ulations of estimated GFR are performed using the 2020 CKD-EPI Study Refit equation without the race variable for the IDMS-Traceable creatinine methods. https://jasn.asnjournals.org/content/early/ASN.825274 2134 Performed By: #### 2 4323-8 #### CARLTON Barragan ([id number]) [facility] ([facility]) [address] [place] [address] 22094 Glucose [Mass/Vol] 104 mg/dL High 74-99 [facility] Comment on above: Performed By: #### 2 4323-8 #### CARLTON Barragan ([id number]) [facility] ([facility]) [address] [place] [address] 37625 Potassium [Moles/Vol] 5.4 mmol/L High 3.5-5.3 [facility] Comment on above: Result Comment: MODE RATE HEMOLYSIS DETECTED. The result may be falsely elevated due to hemolysis or other interferents. Clinical correlation is recommended. Repeat testing may be considered. Performed By: #### 2 4323-8 #### CARLTON Barragan ([id number]) [facility] ([facility]) [address] [place] [address] 35748 Protein [Mass/Vol] 8.3 g/dL High 6.4-8.2 [facility] Comment on above: Performed By: #### 2 4323-8 #### CARLTON Barragan ([id number]) [facility] ([facility]) [address] [place] [address] 59812 Sodium [Moles/Vol] 133 mmol/L Low 136-145 [facility] Comment on above: Performed By: #### 2 4323-8 #### CARLTON Barragan ([id number]) [facility] ([facility]) [address] [place] [address] 30420 Urea nitrogen [Mass/Vol] 10 mg/dL Normal 6- [facility] Comment on above: Performed By: #### 2 4323-8 #### CARLTON Barragan ([id number]) [facility] ([facility]) [address] [place] [address] 98539 Drug Screen, Urineon 023 Amphetamines Screen Ql (U) Negative Presumptive Negative [facility] Comment on above: CUTOFF LEVEL: 500 NG /ML Cross-reactivity has been reported with high concentrations of the following drugs: buproprion, chloroquine, chlorpromazine, ephedrine, mephentermine, fenfluramine, phentermine, phenylpropanolamine, pseudoephedrine, and propranolol. Barbiturates Screen Ql (U) Negative Presumptive Negative [facility] Comment on above: CUTOFF LEVEL: 200 NG /ML Benzodiazepines Ql (U) Positive Abnormal Presumptive Negative [facility] Comment on above: CUTOFF LEVEL: 200 NG /ML Benzoylecgonine Screen Ql (U) Negative Presumptive Negative [facility] Comment on above: CUTOFF LEVEL: 150 NG /ML Cannabinoids Screen Ql (U) Negative Presumptive Negative [facility] Comment on above: CUTOFF LEVEL: 50 NG/ ML fentaNYL+Norfentanyl Screen Ql (U) Negative Presumptive Negative [facility] Comment on above: CUTOFF LEVEL: 5 NG/M L Interpretation and review of laboratory results Abnormal [facility] Opiates Screen Ql (U) Negative Presum ptive Negative [facility] Comment on above: CUTOFF LEVEL: 300 NG /ML The opiate screen does not detect fentanyl, meperidine, or tramadol. Oxycodone is not consistently detected (refer to Oxycodone Screen, Urine result). oxyCODONE+oxyMORphone Screen Ql (U) Negative Presumptive Negative [facility] Comment on above: CUTOFF LEVEL: 100 NG /ML This test will accurately detect both oxycodone and oxymorphone. Phencyclidine Ql (U) Negative Presump tive Negative [facility] Comment on above: CUTOFF LEVEL: 25 NG /ML Cross-reactivity has been reported with dextromethorphan. Drug screen results are presumptive and should not be used to assess compliance with prescribed medication. Contact the performing [facility] laboratory to add-on definitive confirmatory testing if clinically indicated. Toxicology screening results are reported qualitatively. The concentration must be greater than or equal to the cutoff to be reported as positive. The concentration at which the screening test can detect an individual drug or metabolite varies. The absence of expected drug(s) and/or drug metabolite(s) may indicate non-compliance, inappropriate timing of specimen collection relative to drug administration, poor drug absorption, diluted/adulterated urine, or limitations of testing. For medical purposes only; not valid for forensic use. Interpretive questions should be directed to the laboratory medical directors. [facility] Ethanolon 12-14-2022 Ethanol [Mass/Vol] mg/dL Normal <=10 [facility] Comment on above: Result Comment: For medical use only. Performed By: #### 5 643-2 #### CARLTON Barragan ([id number]) [facility] ([facility]) [address] [place] [address] 66874 HCG ( test) IA.rapi d Ql (U)Ordered By: Isabelle Lomeli on 12-14-2022 HCG ( test) Ql (U) Negative NEGATIVE [facility] Interpretation and review of laboratory results Normal [facility] HIV 1+2 Ab+HIV1 p24 Agon HIV 1+2 Ab+HIV1 p24 Ag IA Ql Non-Reactive Normal Nonreactive [facility] Comment on above: Order Comment: HIV A g/Ab screen is performed using the Siemens [employer] HIV Ag/Ab Combo assay which detects the presence of HIV p24 antigen as well as antibodies to HIV-1 (Group M and O) and HIV-2. No laboratory evidence of HIV infection. If acute HIV infection is suspected, consider testing for HIV RNA by PCR (viral load). Performed By: #### 5 6888-1 #### MERLY Barragan ([id number]) [facility] ([facility]) [address] [place] [address] No Panel Informationon 12-14 [facility] RBC shape Nom (Bld)on 2022 RBC morphology finding Nom (Bld) No significant RBC morphology present [facility] Reagin Abon 12-14-2022 Reagin Ab RPR Ql (S) Non-Reactive Normal Nonreactive U [facility] Comment on above: Performed By: #### 2 4323-8 #### CARLTON Barragan ([id number]) [facility] ([facility]) [address] [place] [address] Urinalysis complete panel (U )on 12-14-2022 Appearance (U) Clear Clear [facility] Bilirubin (U) [Mass/Vol] Negative NEGATIVE [facility] Color (U) Yellow Straw, Yellow [facility] Glucose Auto test strip (U) [Mass/Vol] Negative NEGATIVE mg/dL [facility] Interpretation and review of laboratory results Abnormal [facility] Ketones (U) [Mass/Vol] Negative NEGATIVE mg/dL [facility] Leukocyte esterase Auto test strip Ql (U) Negative NEGATIVE [facility] Nitrite Auto test strip Ql (U) Negative NEGATIVE [facility] pH (U) 8.0 [pH] 5.0, 5.5, 6.0, 6.5, 7.0, 7.5, 8.0 [facility] Protein (U) [Mass/Vol] Negative NEGATIVE mg/dL [facility] RBC (U) [#/Vol] Negative NEGATIVE [facility] Specific gravity (U) [Rel density] 1.006 1.005 - 1.035 [facility] Urobilinogen (U) [Mass/Vol] 4.0 mg/dL Abnormal NINF - 2.0 mg/dL [facility] Comment on above: Some pigments and me dications may cause a false positive urobilinogen. [facility] ED Note-Physicianon 12-14-19 ED Note-Physician [phone] [id number] F Normal [facility] BUPRENORPHINE SCREEN TO CONF IRM,URINEon 12-12-2022 Buprenorphine Screen Ql (U) Negative Normal Cutoff 5 [facility] Comment on above: Performed By: #### B UPRS #### [facility] ([place]) ([id number]) [address] [place] [address] Drug screen comment (U) [Interp] See Note Normal [facility] Comment on above: Result Comment: INTE RPRETIVE INFORMATION: The absence of expected drug(s) and/or drug metabolite(s) may indicate non-compliance, inappropriate timing of specimen collection relative to drug administration, poor drug absorption, diluted/adulterated urine, or limitations of testing. The concentration at which the screening test can detect a drug or metabolite varies. Specimens for which drugs or drug classes are detected by the screen are reflexed to a second, more specific technology (GC/MS and/or LC-MS/MS). The concentration value must be greater than or equal to the cutoff to be reported as positive. Interpretive questions should be directed to the laboratory. For medical purposes only; not valid for forensic use. Performed By: [facility] [address] [id number] [employer]: Issa Waller MD, PhD CLIA Number: [id number] Performed By: #### B UPRS #### [facility] ([place]) ([id number]) [address] [place] [address] DRUG SCREEN,URINEon 12-13-19 23 Amphetamines Screen Ql (U) Negative Normal Presumptive Negative [facility] Comment on above: Order Comment: Drug screen results are presumptive and should not be used to assess compliance with prescribed medication. Contact the performing [facility] laboratory to add-on definitive confirmatory testing if clinically indicated. Toxicology screening results are reported qualitatively. The concentration must ???be greater than or equal to the cutoff to be reported as positive. The concentration at which the screening test can detect an individual drug or metabolite varies. The absence of expected drug(s) and/or drug metabolite(s) may indicate non-compliance, inappropriate timing of specimen collection relative to drug administration, poor drug absorption, diluted/adulterated urine, or limitations of testing. For medical purposes only; not valid for forensic use. Interpretive questions should be directed to the laboratory medical directors. Result Comment: CUTO FF LEVEL: 500 NG/ML Cross-reactivity has been reported with high concentrations of the following drugs: buproprion, chloroquine, chlorpromazine, ephedrine, mephentermine, fenfluramine, phentermine, phenylpropanolamine, pseudoephedrine, and propranolol. Performed By: #### Juan RUG3 #### CARLTON Barragan ([id number]) [facility] ([facility]) [address] [place] [address] Barbiturates Screen Ql (U) Negative Normal Presumptive Negative [facility] Comment on above: Order Comment: Drug screen results are presumptive and should not be used to assess compliance with prescribed medication. Contact the performing [facility] laboratory to add-on definitive confirmatory testing if clinically indicated. Toxicology screening results are reported qualitatively. The concentration must ???be greater than or equal to the cutoff to be reported as positive. The concentration at which the screening test can detect an individual drug or metabolite varies. The absence of expected drug(s) and/or drug metabolite(s) may indicate non-compliance, inappropriate timing of specimen collection relative to drug administration, poor drug absorption, diluted/adulterated urine, or limitations of testing. For medical purposes only; not valid for forensic use. Interpretive questions should be directed to the laboratory medical directors. Result Comment: CUTO FF LEVEL: 200 NG/ML Performed By: #### Juan RUG3 #### CARLTON Barragan ([id number]) [facility] ([facility]) [address] [place] [address] Benzodiazepines Ql (U) Negative Normal Presumptive Negative [facility] Comment on above: Order Comment: Drug screen results are presumptive and should not be used to assess compliance with prescribed medication. Contact the performing [facility] laboratory to add-on definitive confirmatory testing if clinically indicated. Toxicology screening results are reported qualitatively. The concentration must ???be greater than or equal to the cutoff to be reported as positive. The concentration at which the screening test can detect an individual drug or metabolite varies. The absence of expected drug(s) and/or drug metabolite(s) may indicate non-compliance, inappropriate timing of specimen collection relative to drug administration, poor drug absorption, diluted/adulterated urine, or limitations of testing. For medical purposes only; not valid for forensic use. Interpretive questions should be directed to the laboratory medical directors. Result Comment: CUTO FF LEVEL: 200 NG/ML Performed By: #### Juan RUG3 #### CARLTON Barragan ([id number]) [facility] ([facility]) [address] [place] [address] Benzoylecgonine Screen Ql (U) Negative Normal Presumptive Negative [facility] Comment on above: Order Comment: Drug screen results are presumptive and should not be used to assess compliance with prescribed medication. Contact the performing [facility] laboratory to add-on definitive confirmatory testing if clinically indicated. Toxicology screening results are reported qualitatively. The concentration must ???be greater than or equal to the cutoff to be reported as positive. The concentration at which the screening test can detect an individual drug or metabolite varies. The absence of expected drug(s) and/or drug metabolite(s) may indicate non-compliance, inappropriate timing of specimen collection relative to drug administration, poor drug absorption, diluted/adulterated urine, or limitations of testing. For medical purposes only; not valid for forensic use. Interpretive questions should be directed to the laboratory medical directors. Result Comment: CUTO FF LEVEL: 150 NG/ML Performed By: #### D RUG3 #### CARLTON Barragan ([id number]) [facility] ([facility]) [address] [place] [address] 90708 Cannabinoids Screen Ql (U) Negative Normal Presumptive Negative [facility] Comment on above: Order Comment: Drug screen results are presumptive and should not be used to assess compliance with prescribed medication. Contact the performing [facility] laboratory to add-on definitive confirmatory testing if clinically indicated. Toxicology screening results are reported qualitatively. The concentration must ???be greater than or equal to the cutoff to be reported as positive. The concentration at which the screening test can detect an individual drug or metabolite varies. The absence of expected drug(s) and/or drug metabolite(s) may indicate non-compliance, inappropriate timing of specimen collection relative to drug administration, poor drug absorption, diluted/adulterated urine, or limitations of testing. For medical purposes only; not valid for forensic use. Interpretive questions should be directed to the laboratory medical directors. Result Comment: CUTO FF LEVEL: 50 NG/ML Performed By: #### D RUG3 #### CARLTON Barragan ([id number]) [facility] ([facility]) [address] [place] [address] fentaNYL+Norfentanyl Screen Ql (U) Negative Normal Presumptive Negative [facility] Comment on above: Order Comment: Drug screen results are presumptive and should not be used to assess compliance with prescribed medication. Contact the performing [facility] laboratory to add-on definitive confirmatory testing if clinically indicated. Toxicology screening results are reported qualitatively. The concentration must ???be greater than or equal to the cutoff to be reported as positive. The concentration at which the screening test can detect an individual drug or metabolite varies. The absence of expected drug(s) and/or drug metabolite(s) may indicate non-compliance, inappropriate timing of specimen collection relative to drug administration, poor drug absorption, diluted/adulterated urine, or limitations of testing. For medical purposes only; not valid for forensic use. Interpretive questions should be directed to the laboratory medical directors. Result Comment: CUTO FF LEVEL: 5 NG/ML Performed By: #### D RUG3 #### CARLTON Barragan ([id number]) [facility] ([facility]) [address] [place], [place] [id number] Opiates Screen Ql (U) Negative Normal Presum ptive Negative [facility] Comment on above: Order Comment: Drug screen results are presumptive and should not be used to assess compliance with prescribed medication. Contact the performing [facility] laboratory to add-on definitive confirmatory testing if clinically indicated. Toxicology screening results are reported qualitatively. The concentration must ???be greater than or equal to the cutoff to be reported as positive. The concentration at which the screening test can detect an individual drug or metabolite varies. The absence of expected drug(s) and/or drug metabolite(s) may indicate non-compliance, inappropriate timing of specimen collection relative to drug administration, poor drug absorption, diluted/adulterated urine, or limitations of testing. For medical purposes only; not valid for forensic use. Interpretive questions should be directed to the laboratory medical directors. Result Comment: CUTO FF LEVEL: 300 NG/ML The opiate screen does not detect fentanyl, meperidine, or tramadol. Oxycodone is not consistently detected (refer to Oxycodone Screen, Urine result). Performed By: #### D RUG3 #### CARLTON Barragan ([id number]) [facility] ([facility]) [address] [place], [place] [id number] oxyCODONE+oxyMORphone Screen Ql (U) Negative Normal Presumptive Negative [facility] Comment on above: Order Comment: Drug screen results are presumptive and should not be used to assess compliance with prescribed medication. Contact the performing [facility] laboratory to add-on definitive confirmatory testing if clinically indicated. Toxicology screening results are reported qualitatively. The concentration must ???be greater than or equal to the cutoff to be reported as positive. The concentration at which the screening test can detect an individual drug or metabolite varies. The absence of expected drug(s) and/or drug metabolite(s) may indicate non-compliance, inappropriate timing of specimen collection relative to drug administration, poor drug absorption, diluted/adulterated urine, or limitations of testing. For medical purposes only; not valid for forensic use. Interpretive questions should be directed to the laboratory medical directors. Result Comment: CUTO FF LEVEL: 100 NG/ML This test will accurately detect both oxycodone and oxymorphone. Performed By: #### D RUG3 #### CARLTON Barragan ([id number]) [facility] ([facility]) [address] [place] [address] 45513 Phencyclidine Ql (U) Negative Normal Presump tive Negative [facility] Comment on above: Order Comment: Drug screen results are presumptive and should not be used to assess compliance with prescribed medication. Contact the performing [facility] laboratory to add-on definitive confirmatory testing if clinically indicated. Toxicology screening results are reported qualitatively. The concentration must ???be greater than or equal to the cutoff to be reported as positive. The concentration at which the screening test can detect an individual drug or metabolite varies. The absence of expected drug(s) and/or drug metabolite(s) may indicate non-compliance, inappropriate timing of specimen collection relative to drug administration, poor drug absorption, diluted/adulterated urine, or limitations of testing. For medical purposes only; not valid for forensic use. Interpretive questions should be directed to the laboratory medical directors. Result Comment: CUTO FF LEVEL: 25 NG/ML Cross-reactivity has been reported with dextromethorphan. Performed By: #### D RUG3 #### CARLTON Barragan ([id number]) [facility] ([facility]) [address] [place] [address] 50824 Gabapentinon 12-12-2022 Gabapentin (U) [Mass/Vol] 242.4 ug/mL Normal [facility] Comment on above: Result Comment: INTE RPRETIVE INFORMATION: Gabapentin, Urine Positive cutoff: 5.0 ug/mL For medical purposes only; not valid for forensic use. The absence of expected drug(s) and/or drug metabolite(s) may indicate non-compliance, inappropriate timing of specimen collection relative to drug administration, poor drug absorption, diluted/adulterated urine, or limitations of testing. The concentration value must be greater than or equal to the cutoff to be reported as a quantitative result. Interpretive questions should be directed to the laboratory. This test was developed and its performance characteristics determined by [facility]. It has not been cleared or approved by the [place] Food and Drug Administration. This test was performed in a CLIA certified laboratory and is intended for clinical purposes. Performed By: [facility] [address] [place] [address] 12702 [employer]: Issa Waller MD, PhD CLIA Number: [id number] Performed By: #### 2 4323-8 #### CARLTON Barragan ([id number]) [facility] ([facility]) [address] [place] [address] 41818 Acetaminophenon 12-11-2022 Acetaminophen [Mass/Vol] 0.3 ug/mL Low 10.0-30.0 [facility] Comment on above: Result Comment: PERF ORMED BY: [place] [address] PATHOLOGIST FOOD AND BEVERAGE COORDINATOR LEE CARDOSO M.D. Performed By: #### E ODALIS, CMP, CBC #### [address] Acetaminophen [Mass/volume] in Serum or PlasmaOrdered By: Ari Aguero on 12-11-2022 Acetaminophen [Mass/Vol] 0.3 ug/mL 10.0-30.0 [facility] Alanine aminotransferase [En zymatic activity/volume] in Serum or PlasmaOrdered By: Ari Aguero on 12-11-2022 ALT [Catalytic activity/Vol] 125 U/L 7-52 [facility] Albumin [Mass/volume] in Ser um or Plasma by Bromocresol green (BCG) dye binding methoOrdered By: Ari Aguero on 12-11-2022 Albumin BCG dye [Mass/Vol] 3.8 g/dL 3.5-5.7 [facility] Alkaline phosphatase [Enzyma tic activity/volume] in Serum or PlasmaOrdered By: Ari Aguero on 12-11-2022 ALP [Catalytic activity/Vol] 132 U/L 34-104 [facility] Amphetamine Screen Ql (U)Ord ered By: Ari Aguero on 12-11-2022 Amphetamines Ql (U) Negative Negative [facility] Aspartate aminotransferase [ Enzymatic activity/volume] in Serum or PlasmaOrdered By: Ari Aguero on 12-11-2022 AST [Catalytic activity/Vol] 223 U/L 13-39 [facility] Barbiturates [Presence] in U rine by Screen methodOrdered By: Ari Aguero on 12-11-2022 Barbiturates Screen Ql (U) Negative Negative [facility] Basophils Auto (Bld) [#/Vol] Ordered By: Ari Aguero on 12-11-2022 Basophils (Bld) [#/Vol] 0.0 10*3/uL 0.0-0.2 [facility] Basophils/100 WBC Auto (Bld) Ordered By: Ari Aguero on 12-11-2022 Basophils/100 WBC (Bld) 0.7 % . [facility] Benzodiazepines Screen Ql (U )Ordered By: Ari Aguero on 12-11-2022 Benzodiazepines Ql (U) Negative Negative [facility] Benzoylecgonine [Presence] i n Urine by Screen methodOrdered By: Ari Aguero on 12-11-2022 Benzoylecgonine Screen Ql (U) Negative Negative [facility] Bilirubin Test strip Ql (U)O rdered By: Ari Aguero on 12-11-2022 Bilirubin Ql (U) Negative Negative [facility] Bilirubin.total [Mass/volume ] in Serum or PlasmaOrdered By: Ari Aguero on 12-11-2022 Bilirubin [Mass/Vol] 0.5 mg/dL 0.3-1.0 [facility] Calcium [Mass/volume] in Ser um or PlasmaOrdered By: Ari Aguero on 12-11-2022 Calcium [Mass/Vol] 8.5 mg/dL 8.6-10.3 [facility] Cannabinoids [Presence] in U rine by Screen methodOrdered By: Ari Aguero on 12-11-2022 Cannabinoids Screen Ql (U) Negative Negative [facility] Comment on above: These are unconfirme d results and should not be used for legal purposes. Drug Cut-Off Concentration: AMPH 1000 ng/mL JANELL 200 ng/mL JAMES 200 ng/mL COCM 300 ng/mL OP 300 ng/mL PCP 25 ng/mL THC 20 ng/mL Carbon dioxide, total [Moles /volume] in Serum or PlasmaOrdered By: Ari Aguero on 12-11-2022 CO2 [Moles/Vol] 23.7 mmol/L 21.0-31.0 [facility] Chloride [Moles/volume] in S marbella or PlasmaOrdered By: Ari gAuero on 12-11-2022 Chloride [Moles/Vol] 109 mmol/L 98-107 [facility] Color Auto (U)Ordered By: Robin red More on 12-11-2022 Color (U) Yellow Yellow [facility] Complete Blood Count Auto Di ffon 12-11-2022 Basophils (Bld) [#/Vol] 0.0 10*3/uL Normal 0.0-0.2 [facility] Comment on above: Result Comment: PERF ORMED BY: [place] [address] PATHOLOGIST FOOD AND BEVERAGE COORDINATOR LEE CARDOSO M.D. Performed By: #### E ODALIS, CMP, CBC #### [facility] [address] [place] [address] [place] Basophils/100 WBC (Bld) 0.7 % Normal . [facility] Comment on above: Performed By: #### E ODALIS, CMP, CBC #### [facility] [address] [place] [address] [place] Eosinophils (Bld) [#/Vol] 0.0 10*3/uL Normal 0.0-0.45 [facility] Comment on above: Performed By: #### E ODALIS, CMP, CBC #### [facility] [address] [place] [address] [place] Eosinophils/100 WBC (Bld) 0.8 % Normal . [facility] Comment on above: Performed By: #### E TRIPP JACOBO, CBC #### [address] Erythrocyte distribution width (RBC) [Ratio] 14.3 % Normal 11.9-15.3 [facility] Comment on above: Performed By: #### E TRIPP JACOBO, CBC #### [address] Hematocrit (Bld) [Volume fraction] 41.0 % Normal 34.0-46.4 [facility] Comment on above: Performed By: #### E TRIPP JACOBO, CBC #### [address] Hemoglobin (Bld) [Mass/Vol] 13.8 g/dL Normal 11.8-15.4 [facility] Comment on above: Performed By: #### E TRIPP JACOBO, CBC #### [address] Lymphocytes (Bld) [#/Vol] 1.9 10*3/uL Normal 1.00-4.8 [facility] Comment on above: Performed By: #### E TRIPP JACOBO, CBC #### [place] [address] [place] Lymphocytes/100 WBC (Bld) 50.5 % Normal . [facility] Comment on above: Performed By: #### E TRIPP JACOBO, CBC #### [address] MCH (RBC) [Entitic mass] 33.9 pg Normal 24.7-34.3 [facility] Comment on above: Performed By: #### E TRIPP JACOBO, CBC #### [address] MCV (RBC) [Entitic vol] 101.1 fL High 80-100 [facility] Comment on above: Performed By: #### E ODALIS, CMP, CBC #### [facility] [address] Mean Corpuscular HGB Conc 33.5 g/dL Normal 32.0-35.0 [facility] Comment on above: Performed By: #### E ODALIS, CMP, CBC #### [facility] [address] Monocytes (Bld) [#/Vol] 0.2 10*3/uL Normal 0.0-0.8 [facility] Comment on above: Performed By: #### E ODALIS, CMP, CBC #### [facility] [address] [place] [address] [place] Monocytes/100 WBC (Bld) 18.99 % Normal 0.00-20.00 [facility] Comment on above: Performed By: #### E ODALIS, CMP, CBC #### [facility] [address] [place] [address] [place] Monocytes/100 WBC (Bld) 5.9 % Normal . [facility] Comment on above: Performed By: #### E ODALIS CMP, CBC #### [facility] [address] [place] [address] [place] Neutrophils (Bld) [#/Vol] 1.6 10*3/uL Low 1.8-7.7 [facility] Comment on above: Performed By: #### E ODALIS CMP, CBC #### [facility] [address] [place] [address] [place] Neutrophils/100 WBC (Bld) 42.1 % Normal . [facility] Comment on above: Performed By: #### E ODALIS, CMP, CBC #### [facility] [address] [place] [address] [place] NRBC% 0.3 /100{WBC} Normal 0-0.5 [facility] Comment on above: Performed By: #### E ODALIS, CMP, CBC #### [facility] [address] [place] [address] Platelet mean volume (Bld) [Entitic vol] 9.0 fL Normal 6.3-10.7 [facility] Comment on above: Performed By: #### E TRIPP JACOBO, CBC #### [facility] [address] [place] [address] Platelets (Bld) [#/Vol] 103 10*3/uL Low 150-450 [facility] Comment on above: Performed By: #### E TRIPP JACOBO, CBC #### [address] RBC (Bld) [#/Vol] 4.06 10*6/uL Normal 3.60-5.00 [facility] Comment on above: Performed By: #### E TRIPP JACOBO, CBC #### [address] WBC (Bld) [#/Vol] 3.7 10*3/uL Low 3.8-11.6 [facility] Comment on above: Performed By: #### E TRIPP JACOBO, CBC #### [address] Comprehensive Metabolic Pane mary bteh 12-11-2022 Albumin [Mass/Vol] 3.8 g/dL Normal 3.5-5.7 [facility] Comment on above: Performed By: #### E TRIPP JACOBO, CBC #### [address] Albumin/Globulin [Mass ratio] 1.2 {ratio} Normal [facility] Comment on above: Performed By: #### E TRIPP JACOBO, CBC #### [address] ALP [Catalytic activity/Vol] 132 U/L High 34-104 [facility] Comment on above: Performed By: #### E TRIPP JACOBO, CBC #### [address] ALT [Catalytic activity/Vol] 125 U/L High 7-52 [facility] Comment on above: Performed By: #### E TRIPP JACOBO, CBC #### [address] Anion gap [Moles/Vol] 13.3 mmol/L Normal 6.0-15.0 [facility] Comment on above: Performed By: #### E TRIPP JACOBO, CBC #### [facility] [address] AST [Catalytic activity/Vol] 223 U/L High 13-39 [facility] Comment on above: Performed By: #### E TRIPP JACOBO, CBC #### [facility] [address] Bilirubin [Mass/Vol] 0.5 mg/dL Normal 0.3-1.0 [facility] Comment on above: Performed By: #### E TRIPP JACOBO, CBC #### [facility] [address] Calcium [Mass/Vol] 8.5 mg/dL Low 8.6-10.3 [facility] Comment on above: Performed By: #### E TRIPP JACOBO, CBC #### [facility] [address] [place] [address] [place] Chloride [Moles/Vol] 109 mmol/L High 98-107 [facility] Comment on above: Performed By: #### E TRIPP JACOBO, CBC #### [facility] [address] CO2 [Moles/Vol] 23.7 mmol/L Normal 21.0-31.0 [facility] Comment on above: Performed By: #### E TRIPP JACOBO, CBC #### [facility] [address] [place] [address] [place] Creatinine [Mass/Vol] 0.51 mg/dL Low 0.60-1.20 [facility] Comment on above: Performed By: #### E TRIPP JACOBO, CBC #### [facility] [address] [place] [address] [place] Creatinine Clr Calc Pharmacy 165.10 [facility] Comment on above: Result Comment: PERF ORMED BY: [place] [address] PATHOLOGIST FOOD AND BEVERAGE COORDINATOR LEE CARDOSO M.D. Performed By: #### E TRIPP JACOBO, CBC #### [facility] [address] [place] [address] [place] GFR/1.73 sq M.predicted MDRD (S/P/Bld) [Vol rate/Area] mL/min/{1.73_m2} [facility] Comment on above: Performed By: #### E TRIPP JACOBO, CBC #### [facility] [address] Globulin (S) [Mass/Vol] 3.2 g/dL [facility] Comment on above: Performed By: #### E TRIPP JACOBO, CBC #### [facility] [address] Glucose [Mass/Vol] 93 mg/dL Normal 70-100 [facility] Comment on above: Result Comment: [facility] Glucose Reference Range is dependent on time and content of last meal. Glucose of more than 200 mg/dL in a nonstressed, ambulatory subject supports the diagnosis of Diabetes Mellitus. ADA recommended reference range Performed By: #### E TRIPP JACOBO, CBC #### [facility] [address] Potassium [Moles/Vol] 4.0 mmol/L Normal 3.5-5.1 [facility] Comment on above: Performed By: #### E TRIPP JACOBO, CBC #### [facility] [address] Protein [Mass/Vol] 7.0 g/dL Normal 6.4-8.9 [facility] Comment on above: Performed By: #### E TRIPP JACOBO, CBC #### [facility] [address] [place] [address] [place] Sodium [Moles/Vol] 142 mmol/L Normal 136-145 [facility] Comment on above: Performed By: #### E TRIPP JACOBO, CBC #### [facility] [address] Urea nitrogen [Mass/Vol] 7 mg/dL Normal 7-25 [facility] Comment on above: Performed By: #### E ODALIS, CMP, CBC #### [facility] [address] Creatinine [Mass/volume] in Serum or PlasmaOrdered By: Ari Aguero on 12-11-2022 Creatinine [Mass/Vol] 0.51 mg/dL 0.60-1.20 [facility] Discharge Instructionson Discharge Instructions [id number] Normal [facility] Drug Screen,Urineon 12-12-19 23 Amphetamine Screen,Urine Negative Normal Negative [facility] Comment on above: Performed By: #### H S TROP, CBC, DDIMER, PP, MG, BMP #### [facility] [address] [place] [address] [place] Barbiturate Screen,Urine Negative Normal Negative [facility] Comment on above: Performed By: #### H S TROP, CBC, DDIMER, PP, MG, BMP #### [facility] [address] [place] [address] [place] Benzodiazepines Screen,Urine Negative Normal Negative [facility] Comment on above: Performed By: #### H S TROP, CBC, DDIMER, PP, MG, BMP #### [facility] [address] Cannabinoid Screen,Urine Negative Normal Negative [facility] Comment on above: Result Comment: Thes e are unconfirmed results and should not be used for legal purposes. Drug Cut-Off Concentration: AMPH 1000 ng/mL JANELL 200 ng/mL JAMES 200 ng/mL COCM 300 ng/mL OP 300 ng/mL PCP 25 ng/mL THC 20 ng/mL PERFORMED BY: [place] [address] PATHOLOGIST FOOD AND BEVERAGE COORDINATOR LEE CARDOSO M.D. Performed By: #### H S TROP, CBC, DDIMER, PP, MG, BMP #### [facility] [address] [place] [address] [place] Cocaine Screen,Urine Negative Normal Negative [facility] Comment on above: Performed By: #### H S TROP, CBC, DDIMER, PP, MG, BMP #### [facility] [address] Opiate Screen,Urine Negative Normal Negative [facility] Comment on above: Performed By: #### H S TROP, CBC, DDIMER, PP, MG, BMP #### [facility] [address] Phencyclidine Screen,Urine Negative Normal Negative [facility] Comment on above: Performed By: #### H S TROP, CBC, DDIMER, PP, MG, BMP #### [facility] [address] Eosinophils Auto (Bld) [#/Vo l]Ordered By: Ari Aguero on 12-11-2022 Eosinophils (Bld) [#/Vol] 0.0 10*3/uL 0.0-0.45 [facility] Eosinophils/100 WBC Auto (Bl d)Ordered By: Ari Aguero on 12-11-2022 Eosinophils/100 WBC (Bld) 0.8 % . [facility] Erythrocyte distribution wid th Auto (RBC) [Ratio]Ordered By: Ari Aguero on 12-11-2022 Erythrocyte distribution width (RBC) [Ratio] 14.3 % 11.9-15.3 [facility] Ethanol [Mass/volume] in Ser um or PlasmaOrdered By: Ari Aguero on 12-11-2022 Ethanol [Mass/Vol] 287 mg/dL [facility] Ethanol [Mass/Vol] 0.287 % [facility] Ethyl Alcohol Profileon 11-13 Ethanol [Mass/Vol] 287 mg/dL Normal [facility] Comment on above: Performed By: #### E ODALIS, CMP, CBC #### [facility] [address] Percent Ethanol 0.287 % Normal [facility] Comment on above: Result Comment: PERF ORMED BY: [place] [address] PATHOLOGIST FOOD AND BEVERAGE COORDINATOR JIANLAN SUN M.D. Performed By: #### E ODALIS, CMP, CBC #### [facility] [address] [place] [id number] [facility] Globulin Calc (S) [Mass/Vol] Ordered By: Ari Aguero on 12-11-2022 Globulin (S) [Mass/Vol] 3.2 g/dL [facility] Glucose [Mass/volume] in Ser um or PlasmaOrdered By: Ari Aguero on 12-11-2022 Glucose [Mass/Vol] 93 mg/dL 70-100 [facility] Comment on above: ADA recommended refe rence rangeRandom Glucose Reference Range is dependent on time and content of last meal. Glucose of more than 200 mg/dL in a nonstressed, ambulatory subject supports the diagnosis of Diabetes Mellitus. HCG ( test) IA.rapi d Ql (U)Ordered By: Ari Aguero on 12-11-2022 HCG ( test) Ql (U) Negative [facility] HCG,Urineon 12-11-2022 Beta HCG ( test) Ql (U) Negative Normal [facility] Comment on above: Order Comment: Name Collection Type:: Clean-Voided Midstream Result Comment: PERF ORMED BY: [place] [address] PATHOLOGIST FOOD AND BEVERAGE COORDINATOR LEE CARDOSO M.D. Performed By: #### H S TROP, CBC, DDIMER, PP, MG, BMP #### [facility] [address] [place] [id number] [facility] Hematocrit Auto (Bld) [Volum e fraction]Ordered By: Air Aguero on 12-11-2022 Hematocrit (Bld) [Volume fraction] 41.0 % 34.0-46.4 [facility] Hemoglobin [Mass/volume] in BloodOrdered By: Ari Aguero on 12-11-2022 Hemoglobin (Bld) [Mass/Vol] 13.8 g/dL 11.8-15.4 [facility] Ketones Auto test strip (U) [Mass/Vol]Ordered By: Ari Aguero on 12-11-2022 Ketones (U) [Mass/Vol] Negative Negative [facility] Leukocytes [#/volume] correc jose for nucleated erythrocytes in Blood by Automated counOrdered By: Ari Aguero on 12-11-2022 WBC corrected for nucl RBC Auto (Bld) [#/Vol] 3.7 10*3/uL 3.8-11.6 [facility] Lymphocytes Auto (Bld) [#/Vo l]Ordered By: Ari Aguero on 12-11-2022 Lymphocytes (Bld) [#/Vol] 1.9 10*3/uL 1.00-4.8 [facility] Lymphocytes/100 WBC Auto (Bl d)Ordered By: Ari Aguero on 12-11-2022 Lymphocytes/100 WBC (Bld) 50.5 % . [facility] MCH Auto (RBC) [Entitic mass ]Ordered By: Ari Aguero on 12-11-2022 MCH (RBC) [Entitic mass] 33.9 pg 24.7-34.3 [facility] MCHC Auto (RBC) [Mass/Vol]Or dered By: Ari Aguero on 12-11-2022 MCHC (RBC) [Mass/Vol] 33.5 g/dL 32.0-35.0 [facility] MCV Auto (RBC) [Entitic vol] Ordered By: Ari Aguero on 12-11-2022 MCV (RBC) [Entitic vol] 101.1 fL 80-100 [facility] Monocyte distribution width [Entitic volume] in Blood by AutomatedOrdered By: Ari Aguero on 12-11-2022 Monocyte distribution width Auto (Bld) [Entitic vol] 18.99 % 0.00-20.00 [facility] Monocytes Auto (Bld) [#/Vol] Ordered By: Ari Aguero on 12-11-2022 Monocytes (Bld) [#/Vol] 0.2 10*3/uL 0.0-0.8 [facility] Monocytes/100 WBC Auto (Bld) Ordered By: Ari Aguero on 12-11-2022 Monocytes/100 WBC (Bld) 5.9 % . [facility] Neutrophils Auto (Bld) [#/Vo l]Ordered By: Ari Aguero on 12-11-2022 Neutrophils (Bld) [#/Vol] 1.6 10*3/uL 1.8-7.7 [facility] Neutrophils/100 WBC Auto (Bl d)Ordered By: Ari Aguero on 12-11-2022 Neutrophils/100 WBC (Bld) 42.1 % . [facility] Nitrite Test strip Ql (U)Ord ered By: Ari Aguero on 12-11-2022 Nitrite Ql (U) Negative Negative [facility] No Panel InformationOrdered By: Ari Aguero on 12-11-2022 Estimated GFR (CKD-EPI) > 60.0 mL/Min [facility] Creatinine Clearance (Chem 165.10 [facility] Nucleated erythrocytes [Pres ence] in Blood by Automated countOrdered By: Ari Aguero on 12-11-2022 Nucleated RBC Auto Ql (Bld) 0.3 /100{WBC} 0-0.5 [facility] Opiates [Presence] in Urine by Screen methodOrdered By: Ari Aguero on 12-11-2022 Opiates Screen Ql (U) Negative Negative [facility] Phencyclidine Screen Ql (U)O rdered By: Ari Aguero on 12-11-2022 Phencyclidine Ql (U) Negative Negative [facility] Platelet mean volume Auto (B ld) [Entitic vol]Ordered By: Ari Aguero on 12-11-2022 Platelet mean volume (Bld) [Entitic vol] 9.0 fL 6.3-10.7 [facility] Platelets Auto (Bld) [#/Vol] Ordered By: Ari Aguero on 12-11-2022 Platelets (Bld) [#/Vol] 103 10*3/uL 150-450 [facility] Potassium [Moles/volume] in Serum or PlasmaOrdered By: Ari Aguero on 12-11-2022 Potassium [Moles/Vol] 4.0 mmol/L 3.5-5.1 [facility] Protein Auto test strip (U) [Mass/Vol]Ordered By: Ari Aguero on 12-11-2022 Protein (U) [Mass/Vol] Negative Negative [facility] Protein [Mass/volume] in Ser um or PlasmaOrdered By: Ari Aguero on 12-11-2022 Protein [Mass/Vol] 7.0 g/dL 6.4-8.9 [facility] RBC Auto (Bld) [#/Vol]Ordere d By: Ari Aguero on 12-11-2022 RBC (Bld) [#/Vol] 4.06 10*6/uL 3.60-5.00 [facility] Salicylateon 12-11-2022 Salicylate < 1.5 Low 15.0-30.0 [facility] Comment on above: Result Comment: Tran ents treated with Sulfasalazine may generate a false high result for Salicylate. Performed By: #### E ODALIS, CMP, CBC #### [facility] [address] Salicylates [Mass/volume] in Serum or PlasmaOrdered By: Ari Aguero on 12-11-2022 Salicylates [Mass/Vol] mg/dL 15.0-30.0 [facility] Comment on above: Patients treated wit h Sulfasalazine may generate a false high result for Salicylate. Serum or plasma albumin/glob ulin mass ratioOrdered By: Ari Aguero on 12-11-2022 Albumin/Globulin [Mass ratio] 1.2 {ratio} [facility] Serum or plasma anion gap de terminationOrdered By: Ari Aguero on 12-11-2022 Anion gap [Moles/Vol] 13.3 mmol/L 6.0-15.0 [facility] Sodium [Moles/volume] in Ser um or PlasmaOrdered By: Ari Aguero on 12-11-2022 Sodium [Moles/Vol] 142 mmol/L 136-145 [facility] Specific gravity Auto test s trip (U) [Rel density]Ordered By: Ari Aguero on 12-11-2022 Specific gravity (U) [Rel density] 1.011 1.001-1.030 [facility] Urea nitrogen [Mass/volume] in Serum or PlasmaOrdered By: Ari Aguero on 12-11-2022 Urea nitrogen [Mass/Vol] 7 mg/dL 7-25 [facility] Urinalysison 12-11-2022 Appearance (U) Clear Normal Clear [facility] Comment on above: Order Comment: Name Collection Type:: Clean-Voided Midstream Performed By: #### H S TROP, CBC, DDIMER, PP, MG, BMP #### [facility] [address] [place] [address] [place] Bilirubin,Urine Negative Normal Negative [facility] Comment on above: Order Comment: Name Collection Type:: Clean-Voided Midstream Performed By: #### H S TROP, CBC, DDIMER, PP, MG, BMP #### [facility] [address] [place] [address] Color (U) Yellow Normal Yellow [facility] Comment on above: Order Comment: Name Collection Type:: Clean-Voided Midstream Performed By: #### H S TROP, CBC, DDIMER, PP, MG, BMP #### [facility] [address] [place] [address] Glucose Ql (U) Normal Normal Normal [facility] Comment on above: Order Comment: Name Collection Type:: Clean-Voided Midstream Performed By: #### H S TROP, CBC, DDIMER, PP, MG, BMP #### [facility] [address] [place] [address] Ketones Ql (U) Negative Normal Negative [facility] Comment on above: Order Comment: Name Collection Type:: Clean-Voided Midstream Performed By: #### H S TROP, CBC, DDIMER, PP, MG, BMP #### [facility] [address] [place] [address] Leukocyte esterase Test strip Ql (U) Negative Normal Negative [facility] Comment on above: Order Comment: Name Collection Type:: Clean-Voided Midstream Performed By: #### H S TROP, CBC, DDIMER, PP, MG, BMP #### [facility] [address] [place] [address] [place] Nitrite,Urine Negative Normal Negative [facility] Comment on above: Order Comment: Name Collection Type:: Clean-Voided Midstream Performed By: #### H S TROP, CBC, DDIMER, PP, MG, BMP #### [facility] [address] [place] [address] [place] Occult Blood,Urine Negative Normal Negative [facility] Comment on above: Order Comment: Name Collection Type:: Clean-Voided Midstream Performed By: #### H S TROP, CBC, DDIMER, PP, MG, BMP #### [facility] [address] [place] [address] pH (U) 6.0 [pH] Normal 5.0-9.0 [facility] Comment on above: Order Comment: Name Collection Type:: Clean-Voided Midstream Performed By: #### H S TROP, CBC, DDIMER, PP, MG, BMP #### [facility] [address] [place] [address] Protein,Urine Negative Normal Negative [facility] Comment on above: Order Comment: Name Collection Type:: Clean-Voided Midstream Performed By: #### H S TROP, CBC, DDIMER, PP, MG, BMP #### [address] Specificy [place],Urine 1.011 Normal 1.001-1.030 [facility] Comment on above: Order Comment: Name Collection Type:: Clean-Voided Midstream Performed By: #### H S TROP, CBC, DDIMER, PP, MG, BMP #### [facility] [address] [place] [address] Urobilinogen,Urine Normal Normal Normal [facility] Comment on above: Order Comment: Name Collection Type:: Clean-Voided Midstream Performed By: #### H S TROP, CBC, DDIMER, PP, MG, BMP #### [facility] [address] [place] [address] Urine clarity by refractomet ry automatedOrdered By: Ari Aguero on 12-11-2022 Clarity Refractometry automated (U) Clear Clear [facility] Urine glucose measurement by automated test strip (mass/volume)Ordered By: Ari Aguero on 12-11-2022 Glucose Auto test strip (U) [Mass/Vol] Normal mg/dL Normal [facility] Urine hemoglobin detection b y automated test stripOrdered By: Ari Aguero on 12-11-2022 Hemoglobin Auto test strip Ql (U) Negative Negative [facility] Urine leukocyte esterase det ection by automated test stripOrdered By: Ari Aguero on 12-11-2022 Leukocyte esterase Auto test strip Ql (U) Negative Negative [facility] Urobilinogen Auto test strip (U) [Mass/Vol]Ordered By: Ari More on 12-11-2022 Urobilinogen (U) [Mass/Vol] Normal mg/dL Normal [facility] Vaccinationson 12-11-2022 Vaccinations [id number] FF Normal [facility] Comment on above: Other Comment: wrong subject Valuables Checkliston 2022 Valuables Checklist [id number] FF Normal [facility] WBC Auto (Bld) [#/Vol]Ordere d By: Ari Aguero on 12-11-2022 WBC (Bld) [#/Vol] 3.7 10*3/uL 3.8-11.6 [facility] pH Auto test strip (U)Ordere d By: Ari Aguero on 12-11-2022 pH (U) 6.0 [pH] 5.0-9.0 [facility] Auto Diffon 12-10-2022 Basophils/100 WBC (Bld) 2.2 % High 0.0-2.0 [facility] Comment on above: Order Comment: Order Added by Discern Expert. Performed By: #### 2 102848, 7749615, 09238751, 2803071, 10268976, 0419943, 97437129, 27109762, 8014087, 3196916 ####[facility] [address] [place] [address] Basophils/Leukocytes Auto (Bld) [Pure # fraction] 0.1 E9/L Normal 0.0-0.2 [facility] Comment on above: Order Comment: Order Added by Discern Expert. Performed By: #### 2 135307, 4562505, 52087395, 3949344, 49240738, 0759450, 86129604, 02179187, 9708305, 8218120 ####[facility] [address] [place] [address] Eosinophils/100 WBC (Bld) 1.5 % Normal 0.0-8.0 [facility] Comment on above: Order Comment: Order Added by Discern Expert. Performed By: #### 2 747565, 6339888, 93385830, 1861232, 93201447, 5189653, 16507394, 19404944, 2864741, 3037956 ####[address] [place] [address] Eosinophils/Leukocyte s Auto (Bld) [Pure # fraction] 0.1 E9/L Normal 0.0-0.5 [facility] Comment on above: Order Comment: Order Added by Discern Expert. Performed By: #### 2 857430, 1301205, 66642005, 7540345, 66669229, 3963010, 41929135, 50473916, 1693844, 7048154 ####[address] [address] Lymphocytes/100 WBC (Bld) 52.9 % High 14.0-50.0 [facility] Comment on above: Order Comment: Order Added by Discern Expert. Performed By: #### 2 774047, 8268291, 37121944, 6324760, 08134251, 1551683, 49829628, 79955822, 2085527, 2144452 ####[address] [place] [address] Lymphocytes/Leukocyte s Auto (Bld) [Pure # fraction] 2.3 E9/L Normal 1.0-4.0 [facility] Comment on above: Order Comment: Order Added by Discern Expert. Performed By: #### 2 792018, 9519918, 43531526, 1533312, 21310717, 2685386, 74208228, 91558714, 5934374, 6559500 ####[address] [place] [address] Monocytes/100 WBC (Bld) 6.7 % Normal 4.0-14.0 [facility] Comment on above: Order Comment: Order Added by Discern Expert. Performed By: #### 2 567977, 7951736, 12591093, 5849633, 16237075, 6692564, 17077910, 72458569, 4416485, 0563994 ####[facility] [address] [place] [address] Monocytes/Leukocytes Auto (Bld) [Pure # fraction] 0.3 E9/L Normal 0.2-1.0 [facility] Comment on above: Order Comment: Order Added by Discern Expert. Performed By: #### 2 060708, 3517680, 76837726, 4430336, 76218510, 5061818, 30356375, 43356576, 9714930, 9344794 ####[address] [place] [address] Neutrophils/100 WBC (Bld) 36.7 % Normal 36.0-75.0 [facility] Comment on above: Order Comment: Order Added by Discern Expert. Performed By: #### 2 311495, 6769009, 89079732, 1976809, 54462079, 7329060, 30082899, 47925631, 7017332, 0033356 ####[address] [place] [address] Neutrophils/Leukocyte s Auto (Bld) [Pure # fraction] 1.6 E9/L Low 2.0-7.5 [facility] Comment on above: Order Comment: Order Added by Discern Expert. Performed By: #### 2 565944, 2964505, 66045588, 3954638, 16856560, 9778545, 14785403, 62577183, 4575896, 0432451 ####[facility] [address] [place] [address] B hCG Qualon 12-10-2022 Beta hCG Ql Negative Normal [facility] Comment on above: Performed By: #### 2 871218, 8199041, 76522789, 9010463, 61465592, 4610730, 74008719, 83309352, 4685375, 4222637 ####[facility] [address] [place] [address] BMPon 12-10-2022 Creatinine [Mass/Vol] 0.6 mg/dL Normal 0.5-1.3 [facility] Comment on above: Performed By: #### 2 039275, 5576320, 30257794, 4321702, 71023278, 4952612, 87194313, 45000845, 7300557, 3881270 ####[facility] [address] [place] [address] Urea nitrogen [Mass/Vol] 6 mg/dL Normal 5-21 [facility] Comment on above: Performed By: #### 2 567996, 7796819, 66458338, 2920197, 89078434, 8510412, 63764805, 26218810, 9164829, 2463761 ####[facility] [address] [place] [address] Urea nitrogen/Creatinine [Mass ratio] 10 No Units Normal 10-20 [facility] Comment on above: Performed By: #### 2 766785, 3565402, 75675856, 8614230, 61513157, 6764982, 47124502, 30333711, 9497174, 2885456 ####[facility] [address] [place] [address] Anion gap [Moles/Vol] 14 mmol/L Normal 6-16 [facility] Comment on above: Performed By: #### 2 235697, 3700150, 26773071, 6346112, 88416865, 4582250, 89025622, 84689969, 4076033, 1830445 ####[facility] [address] [place] [address] Calcium [Mass/Vol] 8.8 mg/dL Low 8.9-11.1 [facility] Comment on above: Performed By: #### 2 799613, 6127717, 48046181, 8034949, 27403730, 5249052, 73691707, 40406786, 4254502, 3980136 ####[facility] [address] [place] [address] Chloride [Moles/Vol] 104 mmol/L Normal 101-111 [facility] Comment on above: Performed By: #### 2 040190, 2205216, 90363675, 3081931, 06269540, 8438853, 92595229, 79000464, 1909005, 5672693 ####[facility] [address] [place] [address] CO2 [Moles/Vol] 25 mmol/L Normal 21-31 [facility] Comment on above: Performed By: #### 2 396646, 2949338, 42882857, 3890177, 83951390, 4271623, 93356988, 58242146, 2014325, 8853078 ####[facility] [address] [place] [address] Glucose [Mass/Vol] 92 mg/dL Normal 55-199 [facility] Comment on above: Result Comment: If t his glucose result represents a fasting glucose, interpretation should refer to the following reference range: 55-99 mg/dL Performed By: #### 2 520371, 6416135, 93199580, 1620967, 12406130, 8312418, 80090938, 24855029, 6416404, 5994080 ####[facility] [address] [place] [address] Potassium [Moles/Vol] 3.9 mmol/L Normal 3.5-5.3 [facility] Comment on above: Performed By: #### 2 896601, 9954766, 32092972, 9849417, 56120366, 6102288, 17044579, 23261413, 2582846, 5022797 ####[facility] [address] [place] [address] Sodium [Moles/Vol] 139 mmol/L Normal 135-145 [facility] Comment on above: Performed By: #### 2 498008, 2476407, 67915779, 1111715, 34298824, 7186691, 48196328, 73327855, 6273823, 2841654 ####[facility] [address] [place] [address] CBC w/ Auto Diffon 12-10- 3 Erythrocyte distribution width (RBC) [Ratio] 14.6 % High 10.9-14.2 [facility] Comment on above: Performed By: #### 2 741033, 2571067, 75220399, 2907996, 63398024, 8272485, 53820893, 28184515, 7066901, 0399161 ####[address] [place] [address] Hematocrit (Bld) [Volume fraction] 47.1 % High 34.0-46.0 [facility] Comment on above: Performed By: #### 2 122823, 0518165, 11524223, 9235531, 50946322, 8579503, 99244900, 61852880, 8965164, 2911394 ####[facility] [address] [place] [address] Hemoglobin (Bld) [Mass/Vol] 16.1 g/dL High 12.0-16.0 [facility] Comment on above: Performed By: #### 2 454995, 9420228, 00700855, 6292525, 33045002, 6015214, 35868665, 49978370, 3892534, 4103771 ####[facility] [address] [place] [address] MCH (RBC) [Entitic mass] 33.9 pg Normal 27.0-34.0 [facility] Comment on above: Performed By: #### 2 005239, 9474292, 63619828, 4660920, 63208776, 8516701, 71567156, 80426090, 5648087, 2570999 ####[facility] [address] [place] [address] MCHC (RBC) [Mass/Vol] 34.3 g/dL Normal 31.4-36.0 [facility] Comment on above: Performed By: #### 2 184157, 1470218, 42934057, 8314631, 44728726, 1614396, 99744858, 64334592, 3840524, 9244479 ####[facility] [address] [place] [address] MCV (RBC) [Entitic vol] 98.9 fL Normal 80.0-100.0 [facility] Comment on above: Performed By: #### 2 522956, 6286152, 24389233, 6120002, 16762168, 1855162, 16946715, 48846392, 0437018, 1270785 ####[facility] [address] [place] [address] Platelet mean volume (Bld) [Entitic vol] 8.2 fL Normal 6.4-10.8 [facility] Comment on above: Performed By: #### 2 112409, 8423183, 90030475, 1724930, 68467990, 2219010, 47913538, 25314565, 0609344, 2003967 ####[facility] [address] [place] [address] Platelets (Bld) [#/Vol] 144.0 E9/L Low 150.0-500.0 [facility] Comment on above: Performed By: #### 2 065074, 3649608, 79615397, 8644939, 83889627, 9764419, 26426443, 17242474, 5133771, 7442128 ####[facility] [address] [place] [address] RBC (Bld) [#/Vol] 4.8 E12/L Normal 4.3-5.9 [facility] Comment on above: Performed By: #### 2 155335, 4899509, 96273404, 7899663, 50161083, 0932366, 98939555, 64472398, 0773976, 0139391 ####[facility] [address] [place] [address] WBC corrected for nucl RBC Auto (Bld) [#/Vol] 4.4 E9/L Normal 4.0-11.0 [facility] Comment on above: Result Comment: Slid e reviewed by AG. Performed By: #### 2 509948, 3484885, 07171271, 5810997, 45060353, 1760038, 16765722, 44564565, 6748953, 0162654 ####[facility] [address] [place] [address] CHEMISTRYOrdered By: SYSTEM SYSTEM on 12-10-2022 Ethanol [Mass/Vol] 327 mg/dL Invalid Interpretation Code <=7mg/dL [facility] Comment on above: Result Comment: Crit ical Result verified by repeat analysis\Critical Result S_ETOH:327.0 Called to YON JENKINS AT ER by HOLGER DOOLEY And Read Back For Confirmation at: 12/10/2022 18:58:35 Amphetamines Screen method >1000 ng/mL Ql (U) Negative 7 (12/10/22 11:15 AM) Normal Negative [facility] Comment on above: Interpretive Data: N egative Cutoff: <1000 ng/mL Barbiturates Screen Ql (U) Negative 8 (12/10/22 11:15 AM) Normal Negative [facility] Comment on above: Interpretive Data: N egative Cutoff: <200 ng/mL Benzodiazepines Ql (U) Positive 1, 2 *ABN* (12/10/22 11:15 AM) Invalid Interpretation Code Negative [facility] Comment on above: Result Comment: No c onfirmation requested by Physican\Results verified by repeat analysis\Unconfirmed by alternate method\Critical Result UD_BENZ:POS Called to CHILO GODOY AT ER by PERICO GOULD And Read Back For Confirmation at: 12/10/2022 11:50:16 Interpretive Data: N egative Cutoff: <200 ng/mL Cocaine Ql (U) Negative 3 (12/10/22 11:15 AM) Normal Negative [facility] Comment on above: Interpretive Data: N egative Cutoff: <300 ng/mL Opiates Screen Ql (U) Negative 4 (12/10/22 11:15 AM) Normal Negative [facility] Comment on above: Interpretive Data: N egative Cutoff: <300 ng/mL Phencyclidine Screen method >25 ng/mL Ql (U) Negative 5 (12/10/22 11:15 AM) Normal Negative [facility] Comment on above: Interpretive Data: N egative Cutoff: <25 ng/mL These drug screen results are to be used for medical (i.e., treatment) purposes only. Unconfirmed drug screening results must not be used for non-medical purposes (e.g., employment testing, legal testing). Tetrahydrocannabinol Screen method >50 ng/mL Ql (U) Negative 6 (12/10/22 11:15 AM) Normal Negative [facility] Comment on above: Interpretive Data: N egative Cutoff: <50 ng/mL Troponin I.cardiac [Mass/Vol] 6.00 pg/mL Low 10.10 - 27.10 pg/mL [facility] Comment on above: Interpretive Data: T he 95% CI (Confidence Interval) PPV (Positive Predictive Value) for myocardial infarction in females is 38 pg/mL, in males 51 pg/mL. The results should be used in conjunction with clinical conditions of myocardial infarction. (Access High Sensitivity Troponin I Instructions For Use, [employer] [place], September 2017) Albumin [Mass/Vol] 4.2 g/dL Normal 3.3 - 5.0 gm/dL [facility] Albumin/Globulin [Mass ratio] 0.9 {ratio} Low 1.1 - 2.2 [facility] ALP [Catalytic activity/Vol] 171 [iU]/d High 21 - 98 Int._Unit/L [facility] ALT No additional P-5'-P [Catalytic activity/Vol] 192 [iU]/d High 6 - 46 Int._Unit/L [facility] Anion gap [Moles/Vol] 14 mmol/L Normal 6 - 16 mEq/L F [facility] AST [Catalytic activity/Vol] 364 [iU]/d High 5 - 43 Int._Unit/L [facility] Bilirubin [Mass/Vol] 0.8 mg/dL Normal 0.0 - 1 .1 mg/dL [facility] Bilirubin.direct [Mass/Vol] 0.3 mg/dL Normal 0.1 - 0.4 mg/dL [facility] Bilirubin.indirect [Mass or moles/Vol] 0.5 mg/dL Normal 0.1 - 0.9 mg/dL [facility] Calcium [Mass/Vol] 8.8 mg/dL Low 8.9 - 11. 1 mg/dL [facility] Chloride [Moles/Vol] 104 mmol/L Normal 101 - 1 11 mmol/L [facility] CO2 [Moles/Vol] 25 mmol/L Normal 21 - 31 mmol/L [facility] Creatinine [Mass/Vol] 0.6 mg/dL Normal 0.5 - 1.3 mg/dL [facility] Ethanol [Mass/Vol] 277 mg/dL Invalid Interpretation Code <=7mg/dL [facility] Comment on above: Result Comment: Crit ical Result verified by repeat analysis\Critical Result S_ETOH:277.0 Called to MANRFED RAUSCH AT ER by PERICO GOULD And Read Back For Confirmation at: 12/10/2022 09:05:13 GFR/1.73 sq M.predicted among non-blacks MDRD (S/P/Bld) [Vol rate/Area] 124 mL/min/1.73 m2 Normal >=59mL/min/1 .73 m2 [facility] Comment on above: Interpretive Data: C hronic kidney disease could be indicated at eGFR's of less than 60 mL/min/1.73m2. Kidney failure is indicated at less than 15 mL/min/1.73m2. Globulin (S) [Mass/Vol] 4.6 g/dL High 1.4 - 4.0 gm/dL [facility] Glucose [Mass/Vol] 92 mg/dL Normal 55 - 199 mg/dL [facility] Comment on above: Interpretive Data: I f this glucose result represents a fasting glucose, interpretation should refer to the following reference range: 55-99 mg/dL Lipase [Catalytic activity/Vol] 46 U/L Normal 13 - 58 unit/L [facility] Magnesium [Mass/Vol] 1.9 mg/dL Normal 1.3 - 2 .4 mg/dL [facility] Potassium [Moles/Vol] 3.9 mmol/L Normal 3.5 - 5.3 mmol/L [facility] Protein [Mass/Vol] 8.8 g/dL High 6.0 - 7.8 gm/dL [facility] Sodium [Moles/Vol] 139 mmol/L Normal 135 - 145 mmol/L [facility] Troponin I.cardiac [Mass/Vol] 5.70 pg/mL Low 10.10 - 27.10 pg/mL [facility] Comment on above: Interpretive Data: T he 95% CI (Confidence Interval) PPV (Positive Predictive Value) for myocardial infarction in females is 38 pg/mL, in males 51 pg/mL. The results should be used in conjunction with clinical conditions of myocardial infarction. (Access High Sensitivity Troponin I Instructions For Use, [employer], September 2017) Urea nitrogen [Mass/Vol] 6 mg/dL Normal 5 - 21 mg/dL [facility] Urea nitrogen/Creatinine [Mass ratio] 10 mg/mg Normal 10 - 20 [facility] COAGULATIONOrdered By: Russell Lorenzo on 12-10-2022 aPTT Coag (PPP) [Time] 42.2 s High 25.1 - 36.5 second(s) [facility] Comment on above: Interpretive Data: P alejandra 15 days - 4 weeks 1 - 5 months 6 - 11 months 1 - 5 years 6 - 10 years 11 - 17 years PTT Mean: 35.4 (27.6-45.6) Mean: 33.5 (24.8-40.7) Mean: 32.4 (25.1-40.7) Mean: 31.6 (24.0-39.2) Mean: 31.6 (26.9-38.7) Mean: 31.0 (24.6-38.4) Pediatric Reference ranges were obtained from a study by Nathan Dunne et al. prepared from 1437 samples obtained at 7 different centers using the same coagulation reagent and instrumentation as [facility]. Currently there are no coagulation studies available worldwide for children to 14 days, and no normal ranges. Heparin therapeutic range (represented by Anti-Factor Xa activity of 0.2 - 0.4 U/mL) corresponds to PTT of 56.6 - 109.0 sec. INR Coag (PPP) [Relative time] 1.2 {INR} Invalid Interpretation Code [facility] Comment on above: Interpretive Data: I NR results are specifically intended to assess patients stabilized on long-term Anticoagulation therapy suggested INR s Less Intensive Anticoagulation 2.0 3.0 Conventional Range 3.0 4.5 PT Coag (PPP) [Time] 12.8 s High 9.4 - 1 2.5 second(s) [facility] Comment on above: Interpretive Data: 1 5 days - 4 weeks 1 - 5 months 6 -11 months 1-5 years 6-10 years 11 -17 years Mean: 11.2 (9.5-12.6) Mean: 11.0 (9.7-12.8) Mean: 11.0 (9.8-13.0) Mean: 11.3 (9.9-13.4) Mean: 11.7 (10.0-14.6) Mean: 11.8 (10.0 - 14.1) Pediatric Reference ranges were obtained from a study by Nathan Dunne et al. prepared from 1437 samples obtained at 7 different centers using the same coagulation reagent and instrumentation as [facility]. Currently there are no coagulation studies available worldwide for children to 14 days, and no normal ranges. Consent for Treatmenton 11-13 Consent for Treatment [id number]#[id number] F [facility] Consent for Treatment [id number] F [facility] Discharge Instructionson Discharge Instructions [id number]#[id number] F [facility] ED Clinical Summaryon 2022 ED Clinical Summary Normal [facility] ED Clinical Summary Normal [facility] ED Note-Nursingon 12-10-2022 ED Note-Nursing Patient belongings t akroseanne from patient after patient asked staff if I can take the Ativan i have in my purse . When purse was taken, vodka, nail arabic remover and mouth wash taken from patient at this time. Normal [facility] ED Note-Physicianon 12-11-19 ED Note-Physician [facility] Comment on above: Result Comment: Elec tronically Signed By: Darren Guzman DO\.br\Date and Time Signed: 12/10/22 21:40 EDT ED Note-Physician Normal [facility] Comment on above: Result Comment: Elec tronically Signed By: Fabricio Gao PA-C\.br\Date and Time Signed: 12/10/22 18:31 EDT\.br\Electronically Co-Signed By: Eric Forbes DO\.br\Date and Time Co-Signed: 12/10/22 18:37 EDT ED Note-Physician Normal [facility] Comment on above: Result Comment: Elec tronically Signed By: Eric Forbes DO\.br\Date and Time Signed: 12/10/22 11:43 EDT ED Patient Education Noteon 12-10-2022 ED Patient Education Note Normal [facility] ED Patient Education Note Normal [facility] ED Patient Summaryon 023 ED Patient Summary Normal [facility] ED Patient Summary Normal [facility] Ethanolon 12-10-2022 Ethanol [Mass/Vol] 327 mg/dL Abnormal <=7 [facility] Comment on above: Result Comment: Crit ical Result verified by repeat analysis\Critical Result S_ETOH:327.0 Called to YON JENKINS AT ER by HOLGER DOOLEY And Read Back For Confirmation at: 12/10/2022 18:58:35 Performed By: #### 2 023835 ####[facility] [address] [place] [address] Ethanol [Mass/Vol] 277 mg/dL Abnormal <=7 [facility] Comment on above: Result Comment: Crit ical Result verified by repeat analysis\Critical Result S_ETOH:277.0 Called to MANFRED RAUSCH AT ER by PERICO GOULD And Read Back For Confirmation at: 12/10/2022 09:05:13 Performed By: #### 2 565788 ####[facility] [address] [place] [address] HEMATOLOGYOrdered By: SYSTEM SYSTEM on 12-10-2022 Basophils/100 WBC (Bld) 2.2 % High 0.0 - 2.0 % [facility] Basophils/Leukocytes Auto (Bld) [Pure # fraction] 0.1 E9/L Normal 0.0 - 0.2 E9/L [facility] Eosinophils/100 WBC (Bld) 1.5 % Normal 0.0 - 8.0 % [facility] Eosinophils/Leukocyte s Auto (Bld) [Pure # fraction] 0.1 E9/L Normal 0.0 - 0.5 E9/L [facility] Lymphocytes/100 WBC (Bld) 52.9 % High 14.0 - 50.0 % [facility] Lymphocytes/Leukocyte s Auto (Bld) [Pure # fraction] 2.3 E9/L Normal 1.0 - 4.0 E9/L [facility] Monocytes/100 WBC (Bld) 6.7 % Normal 4.0 - 14.0 % [facility] Monocytes/Leukocytes Auto (Bld) [Pure # fraction] 0.3 E9/L Normal 0.2 - 1.0 E9/L [facility] Neutrophils/100 WBC (Bld) 36.7 % Normal 36.0 - 75.0 % [facility] Neutrophils/Leukocyte s Auto (Bld) [Pure # fraction] 1.6 E9/L Low 2.0 - 7.5 E9/L [facility] HEMATOLOGYOrdered By: Ernesto Reynaga on 12-10-2022 Erythrocyte distribution width (RBC) [Ratio] 14.6 % High 10.9 - 14.2 % [facility] Hematocrit (Bld) [Volume fraction] 47.1 % High 34.0 - 46.0 % [facility] Hemoglobin (Bld) [Mass/Vol] 16.1 g/dL High 12.0 - 16.0 gm/dL [facility] MCH (RBC) [Entitic mass] 33.9 pg Normal 27.0 - 34.0 pg [facility] MCHC (RBC) [Mass/Vol] 34.3 g/dL Normal 31.4 - 36.0 gm/dL [facility] MCV (RBC) [Entitic vol] 98.9 fL Normal 80.0 - 100.0 fL [facility] Platelet mean volume (Bld) [Entitic vol] 8.2 fL Normal 6.4 - 10.8 fL [facility] Platelets (Bld) [#/Vol] 144.0 E9/L Low 150.0 - 500.0 E9/L [facility] RBC (Bld) [#/Vol] 4.8 E12/L Normal 4.3 - 5.9 E12/L [facility] WBC corrected for nucl RBC Auto (Bld) [#/Vol] 4.4 E9/L Normal 4.0 - 11.0 E9/L [facility] Comment on above: Result Comment: Slid e reviewed by [facility] Panelon 12-10-2022 AST [Catalytic activity/Vol] 364 Int._Unit/L High 5-43 [facility] Comment on above: Performed By: #### 2 179245, 6139766, 17107815, 9749860, 38620061, 4911501, 73158572, 27122879, 2711260, 4746123 ####[facility] [address] [place] [address] Albumin [Mass/Vol] 4.2 g/dL Normal 3.3-5.0 [facility] Comment on above: Performed By: #### 2 778736, 1021818, 96694698, 7812245, 61656284, 7792338, 02725613, 66498169, 9832976, 9719372 ####[facility] [address] [place] [address] Albumin/Globulin (S) [Mass conc ratio] 0.9 Low 1.1-2.2 [facility] Comment on above: Performed By: #### 2 708469, 1281773, 25195768, 0180479, 08100144, 2076772, 18407988, 06910077, 5647744, 6766113 ####[facility] [address] [place] [address] ALP [Catalytic activity/Vol] 171 Int._Unit/L High 21-98 [facility] Comment on above: Performed By: #### 2 995421, 7698685, 62828173, 8638547, 71581033, 9587933, 98241617, 54355189, 9745054, 6321770 ####[facility] [address] [place] [address] ALT No additional P-5'-P [Catalytic activity/Vol] 192 Int._Unit/L High 6-46 [facility] Comment on above: Performed By: #### 2 749650, 7974203, 20768894, 7049742, 31419806, 6840727, 22434375, 46210194, 1216978, 1899185 ####[facility] [address] [place] [address] Bilirubin [Mass/Vol] 0.8 mg/dL Normal 0.0-1.1 [facility] Comment on above: Performed By: #### 2 764578, 4233668, 03394832, 2960076, 06253610, 5152048, 11071662, 40256133, 7503663, 4916620 ####[facility] [address] [place] [address]40757 Bilirubin.direct [Mass/Vol] 0.3 mg/dL Normal 0.1-0.4 [facility] Comment on above: Performed By: #### 2 871769, 6532816, 60604480, 8103913, 17440569, 3249155, 22347678, 81181998, 9765813, 4822976 ####[address] [place] [address] Bilirubin.indirect [Mass or moles/Vol] 0.5 mg/dL Normal 0.1-0.9 [facility] Comment on above: Performed By: #### 2 253864, 1698415, 10279003, 4537807, 76318204, 0896598, 37250228, 03392558, 6764094, 2436189 ####[facility] [id number] [place] [address] Globulin (S) [Mass/Vol] 4.6 g/dL High 1.4-4.0 [facility] Comment on above: Performed By: #### 2 467150, 8679115, 31077448, 0584960, 26924661, 9940391, 29447831, 48253298, 8921423, 9559209 ####[facility] [address] [place] [address] Protein [Mass/Vol] 8.8 g/dL High 6.0-7.8 [facility] Comment on above: Performed By: #### 2 128273, 2137993, 08378280, 2869800, 36158295, 5668461, 56296358, 08836609, 2205488, [id number] ####[facility] [address] [place] [address] Lipase Levelon 12-10-2022 Lipase [Catalytic activity/Vol] 46 U/L Normal 13-58 [facility] Comment on above: Performed By: #### 2 915295, 2080882, 53980229, 9733912, 79445591, 2061992, 64295179, 41343960, 8114359, 1852889 ####[facility] [address] [place] [address] Magnesiumon 12-10-2022 Magnesium [Mass/Vol] 1.9 mg/dL Normal 1.3-2.4 [facility] Comment on above: Performed By: #### 2 352865, 6325766, 05654959, 7651642, 01848149, 9391151, 38894376, 22574199, 1200646, 7396262 ####[facility] [address] [place] [address] Monitor Recordon 12-10-2022 Monitor Record [id number] FF Normal [facility] PT & PTTon 12-10-2022 aPTT Coag (PPP) [Time] 42.2 second(s) High 25.1-36.5 [facility] Comment on above: Order Comment: Nurse is starting IV and pull labs 12/10/2022 08:12:05 EDT [id number] Result Comment: Para meter 15 days - 4 weeks 1 - 5 months 6 - 11 months 1 - 5 years 6 - 10 years 11 - 17 years PTT Mean: 35.4 (27.6-45.6) Mean: 33.5 (24.8-40.7) Mean: 32.4 (25.1-40.7) Mean: 31.6 (24.0-39.2) Mean: 31.6 (26.9-38.7) Mean: 31.0 (24.6-38.4) Pediatric Reference ranges were obtained from a study by Nathan Dunne et al. prepared from 1437 samples obtained at 7 different centers using the same coagulation reagent and instrumentation [place] [facility] Currently there are no coagulation studies available worldwide for children to 14 days, and no normal ranges. Heparin therapeutic range (represented by Anti-Factor Xa activity of 0.2 - 0.4 U/mL) corresponds to PTT of 56.6 - 109.0 sec. Performed By: #### 2 183400, 5377394, 95788510, 8618807, 57873188, 5636874, 00883858, 34632050, 2427730, 9540025 ####[facility] [address] [place] [address] INR Coag (PPP) [Relative time] 1.2 {INR} Invalid Interpretation Code [facility] Comment on above: Order Comment: Nurse is starting IV and pull labs 12/10/2022 08:12:05 EDT [id number] Result Comment: INR results are specifically intended to assess patients stabilized on long-term Anticoagulation therapy suggested INR?s ?Less Intensive Anticoagulation? 2.0 ? 3.0Conventional Range 3.0 ? 4.5 Performed By: #### 2 836079, 9029037, 06817446, 6667158, 04480029, 1400794, 82645304, 37655385, 4955024, 7676455 ####[facility] [address] [place] [address] PT Coag (PPP) [Time] 12.8 second(s) High 9.4-12.5 [facility] Comment on above: Order Comment: Nurse is starting IV and pull labs 12/10/2022 08:12:05 EDT [id number] Result Comment: 15 d ays - 4 weeks 1 - 5 months 6 -11 months 1-5 years 6-10 years 11 -17 years Mean: 11.2 (9.5-12.6) Mean: 11.0 (9.7-12.8) Mean: 11.0 (9.8-13.0) Mean: 11.3 (9.9-13.4) Mean: 11.7 (10.0-14.6) Mean: 11.8 (10.0 - 14.1) Pediatric Reference ranges were obtained from a study by Nathan Dunne et al. prepared from 1437 samples obtained at 7 different centers using the same coagulation reagent and instrumentation [place] [facility] Currently there are no coagulation studies available worldwide for children to 14 days, and no normal ranges. Performed By: #### 2 690481, 7909801, 68404338, 5528968, 91424948, 8075450, 22956627, 36592975, 3696360, 7381064 ####[facility] [address] [place] [address] SEROLOGYOrdered By: Annie Lorenzo on 12-10-2022 Beta hCG Ql Negative (12/10/22 8:23 AM) Normal [facility] Man Sero Troponin 0 Hr.on 12-10-2022 Troponin I.cardiac [Mass/Vol] 5.70 pg/mL Low 10.10-27.10 [facility] Comment on above: Result Comment: The 95% CI (Confidence Interval) PPV (Positive Predictive Value) for myocardial infarction in females is 38 pg/mL, in males 51 pg/mL. The results should be used in conjunction with clinical conditions of myocardial infarction.(Access High Sensitivity Troponin I Instructions For Use, [employer], September 2017) Performed By: #### 2 506293, 4968202, 01256899, 9345047, 28495622, 5347496, 57859066, 44146294, 9508149, 0408535 ####[facility] [address] [place] [address] Troponin 3 Hr.on 12-10-2022 Troponin I.cardiac [Mass/Vol] 6.00 pg/mL Low 10.10-27.10 [facility] Comment on above: Result Comment: The 95% CI (Confidence Interval) PPV (Positive Predictive Value) for myocardial infarction in females is 38 pg/mL, in males 51 pg/mL. The results should be used in conjunction with clinical conditions of myocardial infarction.(Access High Sensitivity Troponin I Instructions For Use, [employer], September 2017) Performed By: #### 1 [id number] ####[facility] [address] [place] [address] U Drug Screenon 12-10-2022 Benzodiazepines Ql (U) Positive Abnormal Negative [facility] Comment on above: Result Comment: No c onfirmation requested by Physican\Results verified by repeat analysis\Unconfirmed by alternate method\Critical Result UD_BENZ:POS Called to [facility] AT ER by PERICO GOULD And Read Back For Confirmation at: 12/10/2022 11:50:16Negative Cutoff: <200 ng/mL Performed By: #### 2 786278 ####[facility] [address] [place] [address] Amphetamines Screen method >1000 ng/mL Ql (U) Negative Normal Negative [facility] Comment on above: Result Comment: Nega tive Cutoff: <1000 ng/mL Performed By: #### 2 884042 ####[facility] [address] [place] [address] Barbiturates Screen Ql (U) Negative Normal Negative [facility] Comment on above: Result Comment: Nega tive Cutoff: <200 ng/mL Performed By: #### 2 617285 ####[facility] [address] [place] [address] Cocaine Ql (U) Negative Normal Negative [facility] Comment on above: Result Comment: Nega tive Cutoff: <300 ng/mL Performed By: #### 2 926878 ####[facility] [address] [place] [address] Opiates Screen Ql (U) Negative Normal Negative Fis [facility] Comment on above: Result Comment: Nega tive Cutoff: <300 ng/mL Performed By: #### 2 155684 ####[facility] [address] [place] [address] Phencyclidine Screen method >25 ng/mL Ql (U) Negative Normal Negative [facility] Comment on above: Result Comment: Nega tive Cutoff: <25 ng/mLThese drug screen results are to be used for medical (i.e., treatment) purposes only. Unconfirmed drug screening results must not be used for non-medical purposes (e.g., employment testing, legal testing). Performed By: #### 2 529762 ####[facility] [address] [place] [address] Tetrahydrocannabinol Screen method >50 ng/mL Ql (U) Negative Normal Negative [facility] Comment on above: Result Comment: Nega tive Cutoff: <50 ng/mL Performed By: #### 2 134872 ####[address] [address] UA With Cult Reflexon 2022 Bilirubin Ql (U) 1+ Abnormal Negative [facility] Comment on above: Performed By: #### 1 0397377 ####[address] [place] [address] Clarity (U) CLOUDY Abnormal Clear [facility] Comment on above: Performed By: #### 1 2125428 ####[address] [place] [address] Color (U) DARK YELLO Abnormal Yellow [facility] Comment on above: Performed By: #### 1 7647926 ####[facility] [address] [place] [address] Crystals LM Ql (Urine sed) Present Normal [facility] Comment on above: Performed By: #### 1 9729596 ####[address] [place] [address] Epithelial cells.squamous LM.HPF (Urine sed) [#/Area] 9-10 Normal 0-2 [facility] Comment on above: Performed By: #### 1 3501180 ####[address] [address] Glucose Test strip (U) [Mass/Vol] Negative Normal Negative [facility] Comment on above: Performed By: #### 1 6691193 ####[address] [address] Hemoglobin Ql (U) 3+ Abnormal Negative [facility] Comment on above: Performed By: #### 1 1093215 ####[address] [address] Ketones (U) [Mass/Vol] TRACE Invalid Interpretation Code Negative [facility] Comment on above: Performed By: #### 1 2629548 ####[address] [address] [place].plasma/Lithiu m.RBC (Bld) [Mass ratio] 0-3 Normal 0-3 [facility] Comment on above: Performed By: #### 1 9439483 ####[address] [address] Nitrite Ql (U) Negative Normal Negative [facility] Comment on above: Performed By: #### 1 8415273 ####[address] [address] pH (U) 7.0 [pH] Invalid Interpretation Code 5.0-9.0 [facility] Comment on above: Performed By: #### 1 4667945 ####[address] [address] Protein (U) [Mass/Vol] 2+ Abnormal Negative [facility] Comment on above: Performed By: #### 1 9832528 ####[address] [address] Specific gravity (U) [Rel density] 1.015 Invalid Interpretation Code 1.005-1.030 [facility] Comment on above: Performed By: #### 1 8416643 ####[address] [address] Type of Urine collection method Clean Catch Normal [facility] Comment on above: Performed By: #### 1 6346876 ####[facility] [address] [place] [address] Urobilinogen Qn (U) >=8.0 Abnormal 0.0-1.0 [facility] Comment on above: Performed By: #### 1 5170999 ####[facility] [address] [place] [address] WBC Auto Ql (U) Negative Normal Negative [facility] Comment on above: Performed By: #### 1 3163340 ####[facility] [address] [place] [address] WBC LM.HPF (Urine sed) [#/Area] 0-5 Normal 0-5 [facility] Comment on above: Performed By: #### 1 1657245 ####[facility] [address] [place] [address] URINALYSISOrdered By: Zakiya Lorenzo on 12-10-2022 Bilirubin Ql (U) 1+ *ABN* (12/10/22 11:15 AM) Invalid Interpretation Code Negative [facility] UA Auto SS Clarity (U) Cloudy *ABN* (12/10/22 11:15 AM) Invalid Interpretation Code Clear [facility] UA Auto SS Color (U) Dark Yellow *ABN* (12/10/22 11:15 AM) Invalid Interpretation Code Yellow [facility] UA Auto SS Crystals LM Ql (Urine sed) Present (12/10/22 11:15 AM) Normal [facility] UA Auto SS Epithelial cells.squamous LM.HPF (Urine sed) [#/Area] 9-10 /HPF Normal 0-2/HPF [facility] UA Aut o SS Glucose Test strip (U) [Mass/Vol] Negative (12/10/22 11:15 AM) Normal Negative [facility] UA Auto SS Hemoglobin Ql (U) 3+ *ABN* (12/10/22 11:15 AM) Invalid Interpretation Code Negative [facility] UA Auto SS Ketones (U) [Mass/Vol] Trace *NA* (12/10/22 11:15 AM) Invalid Interpretation Code Negative [facility] UA Auto SS [place].plasma/Lithiu m.RBC (Bld) [Mass ratio] 0-3 /HPF Normal 0-3/HPF [facility] UA Auto SS Nitrite Ql (U) Negative (12/10/22 11:15 AM) Normal Negative [facility] UA Auto SS pH (U) 7.0 *NA* (12/10/22 11:15 AM) Invalid Interpretation Code 5.0 - 9.0 [facility] UA Auto SS Protein (U) [Mass/Vol] 2+ *ABN* (12/10/22 11:15 AM) Invalid Interpretation Code Negative [facility] UA Auto SS Specific gravity (U) [Rel density] 1.015 *NA* (12/10/22 11:15 AM) Invalid Interpretation Code 1.005 - 1.030 [facility] UA Auto SS UA Spec Desc Clean Catch (12/10/22 11:15 AM) Normal [facility] UA Auto SS Urobilinogen Qn (U) {Surinder'U}/dL Invalid Interpretation Code 0.0 - 1.0 EU/dL [facility] UA Auto SS WBC Auto Ql (U) Negative (12/10/22 11:15 AM) Normal Negative [facility] UA Auto SS WBC LM.HPF (Urine sed) [#/Area] 0-5 /HPF Normal 0-5/HPF [facility] UA Auto SS XR Chest Single Viewon 12-10 XR Chest Single View Normal [facility] eGFRon 12-10-2022 GFR/1.73 sq M.predicted among non-blacks MDRD (S/P/Bld) [Vol rate/Area] 124 mL/min/1.73 m2 Normal >=59 [facility] Comment on above: Order Comment: Order added by Discern Expert. Result Comment: Surveillance Sensor Officer justin kidney disease could be indicated at eGFR's of less than 60 mL/min/1.73m2. Kidney failure is indicated at less than 15 mL/min/1.73m2. Performed By: #### 2 727539, 2499526, 68649911, 5294392, 41904209, 9528505, 54170874, 33822486, 3177765, 4744345 ####[facility] [address] [place] [address] Consenton 12-03-2022 Consent [id number] FF Normal [facility] C Urineon 12-02-2022 Bacteria identified Cx Nom (U) Normal [facility] Comment on above: Performed By: #### 2 118497 ####[facility] [address] [place] [address] Family Medicine Office/Clini c Noteon 11-30-2022 Family Medicine Office/Clinic Note Normal [facility] Comment on above: Result Comment: Elec tronically Signed By: ANA HARO, CARRIE\.br\Date and Time Signed: 11/30/22 14:01 EDT Patient Educationon 12-01-19 Patient Education Normal [facility] DHEASon 11-20-2022 DHEA-S [Mass/Vol] 35.7 microgram/dL Low 84.8-378.0 [facility] Comment on above: Result Comment: Perf ormed at: [facility] [address] [place], [place] [id number] PhD Sriram Arceo Performed By: #### 2 581588, 99451139, 2305478, 801238398, 0398402, 060127290, 56131130 ####[facility] [address] [place] [address] Estradiolon 11-20-2022 E2 [Mass/Vol] 85.0 pg/mL Invalid Interpretation Code [facility] Comment on above: Result Comment: Adul t Female:Follicular phase 12.5 - 166.0Ovulation phase 85.8 - 498.0Luteal phase 43.8 - 211.0Postmenopausal <6.0 - 54.7Evyxdlgnd7rg trimester 215.0 - >4300.0Roche ECLIA methodologyPerformed at: [facility] [address] [place], [place] [id number] PhD Sriram Arceo Performed By: #### 2 629142, 39880392, 6946410, 212240796, 8955763, 358835766, 83244515 ####[facility] [address] [place] [address] FSHon 11-20-2022 Follitropin Qn 10.0 m[IU]/mL Invalid Interpretation Code [facility] Comment on above: Result Comment: Adul t Female:Follicular phase 3.5 - 12.5Ovulation phase 4.7 - 21.5Luteal phase 1.7 - 7.7Postmenopausal 25.8 - 134.8Performed at: [address] [place], [place] [id number] PhD Sriram Arceo Performed By: #### 2 542776, 41324208, 0336662, 445347857, 0137273, 474025824, 77983398 ####[facility] [address] [place] [address] HIV Screen 4th Generation wR fxon 11-20-2022 HIV 1+2 Ab+HIV1 p24 Ag IA Ql Non-Reactive Invalid Interpretation Code Non Reactive [facility] Comment on above: Result Comment: HIV NegativeHIV-1/HIV-2 antibodies and HIV-1 p24 antigen were NOT detected.There is no laboratory evidence of HIV infection.Performed at: [facility] [place], [place] [id number] PhD Sriram Arceo Performed By: #### 2 674973, 77357632, 2497614, 510625988, 9139845, 296779828, 14013252 ####[facility] [address] [place] [address] Hep Bs Agon 11-20-2022 HBV surface Ag IA Ql Negative Invalid Interpretation Code Negative [facility] Comment on above: Result Comment: Perf ormed at: [facility] [place], [place] [id number] PhD Sriram Arceo Performed By: #### 2 001974, 67831268, 6908071, 590232983, 2335841, 147489541, 66579814 ####[facility] [address] [place] [address] Testosterone F&Ton 3 Testosterone [Mass/Vol] 40 ng/dL Invalid Interpretation Code [facility] Comment on above: Performed By: #### 2 862866, 91876315, 0026573, 434186980, 0109138, 500019871, 04872811 ####[facility] [address] [place] [address] Testosterone Free [Mass/Vol] 0.8 pg/mL Invalid Interpretation Code 0.0-4.2 [facility] Comment on above: Result Comment: Perf ormed at: [address] [place], [place] [id number] PhD Sriram ArceoPerformed at: [address] [id number] MD Dimitris Maher Performed By: #### 2 285311, 97138616, 7250569, 876155514, 8183584, 063201855, 35399856 ####[facility] [address] [place] [address] Thyroid Perox.tpo Abon 11-16 TPO Ab Qn 15 International_Unit/mL Invalid Interpretation Code 0-34 [facility] Comment on above: Result Comment: Perf ormed at: [address] [place], [place] [id number] PhD Sriram Arceo Performed By: #### 3 4536800, 11423185, 42397902 ####[facility] [address] [place] [address] WRITTEN AUTHORIZATIONon Written Authorization Comment Invalid Interpretation Code [facility] Comment on above: Result Comment: Writ ten Authorization Received.Authorization received from ORIGINAL ORDER [id number] by Rodrick Vásquezformed at: [address] [id number] PhD Sriram Arceo Performed By: #### 3 7969801, 44521311, 91816807 ####[facility] [address] [place] [address] CHEMISTRYOrdered By: SYSTEM SYSTEM on 11-14-2022 Amphetamines Screen method >1000 ng/mL Ql (U) Negative 6 (11/14/22 12:35 PM) Normal Negative [facility] Comment on above: Interpretive Data: N egative Cutoff: <1000 ng/mL Barbiturates Screen Ql (U) Negative 7 (11/14/22 12:35 PM) Normal Negative [facility] Comment on above: Interpretive Data: N egative Cutoff: <200 ng/mL Benzodiazepines Ql (U) Negative 1 (11/14/22 12:35 PM) Normal Negative [facility] Comment on above: Interpretive Data: N egative Cutoff: <200 ng/mL Cocaine Ql (U) Negative 2 (11/14/22 12:35 PM) Normal Negative [facility] Comment on above: Interpretive Data: N egative Cutoff: <300 ng/mL Opiates Screen Ql (U) Negative 3 (11/14/22 12:35 PM) Normal Negative [facility] Comment on above: Interpretive Data: N egative Cutoff: <300 ng/mL Phencyclidine Screen method >25 ng/mL Ql (U) Negative 4 (11/14/22 12:35 PM) Normal Negative [facility] Comment on above: Interpretive Data: N egative Cutoff: <25 ng/mL These drug screen results are to be used for medical (i.e., treatment) purposes only. Unconfirmed drug screening results must not be used for non-medical purposes (e.g., employment testing, legal testing). Tetrahydrocannabinol Screen method >50 ng/mL Ql (U) Negative 5 (11/14/22 12:35 PM) Normal Negative [facility] Comment on above: Interpretive Data: N egative Cutoff: <50 ng/mL Physician Orderon 11-14-2022 Physician Order [id number]#1.00CD :127 Normal [facility] RPR with Conf Rfxon 11-15-19 Reagin Ab RPR Ql (S) Non-Reactive Invalid Interpretation Code Non Reactive [facility] Comment on above: Result Comment: Perf ormed at: [facility] [id number] PhD Sriram Arceo Performed By: #### 2 049861, 72263011, 0209925, 601628384, 5185760, 450302404, 86027279 ####[facility] [address] [place] [address] U Drug Screenon 11-14-2022 Amphetamines Screen method >1000 ng/mL Ql (U) Negative Normal Negative [facility] Comment on above: Result Comment: Nega tive Cutoff: <1000 ng/mL Performed By: #### 2 166464 ####[facility] [address] [place] [address] Barbiturates Screen Ql (U) Negative Normal Negative [facility] Comment on above: Result Comment: Nega tive Cutoff: <200 ng/mL Performed By: #### 2 754227 ####[facility] [address] [place] [address] Benzodiazepines Ql (U) Negative Normal Negative [facility] Comment on above: Result Comment: Nega tive Cutoff: <200 ng/mL Performed By: #### 2 435329 ####[facility] [address] [place] [address] Cocaine Ql (U) Negative Normal Negative [facility] Comment on above: Result Comment: Nega tive Cutoff: <300 ng/mL Performed By: #### 2 412795 ####[facility] [address] [place] [address] Opiates Screen Ql (U) Negative Normal Negative Fis [facility] Comment on above: Result Comment: Nega tive Cutoff: <300 ng/mL Performed By: #### 2 215435 ####[facility] [address] [place] [address] Phencyclidine Screen method >25 ng/mL Ql (U) Negative Normal Negative [facility] Comment on above: Result Comment: Nega tive Cutoff: <25 ng/mLThese drug screen results are to be used for medical (i.e., treatment) purposes only. Unconfirmed drug screening results must not be used for non-medical purposes (e.g., employment testing, legal testing). Performed By: #### 2 668481 ####[facility] [address] [place] [address] Tetrahydrocannabinol Screen method >50 ng/mL Ql (U) Negative Normal Negative [facility] Comment on above: Result Comment: Nega tive Cutoff: <50 ng/mL Performed By: #### 2 570521 ####[facility] [address] [place] [address] CHEMISTRYOrdered By: SYSTEM SYSTEM on 11-13-2022 TSH Qn 1.86 m[IU]/L Normal 0.34 - 5.60 mcIU/mL [facility] Remisol Consent for Treatmenton Consent for Treatment [id number]: 127 Normal [facility] Consent for Treatment [id number]: 127 Normal [facility] Physician Orderon 11-13-2022 Physician Order [id number]#1.00CD :127 Normal [facility] Physician Order [id number]#1.00CD :127 Normal [facility] TSH With T4fr Reflexon 11-13 TSH Qn 1.86 m[IU]/L Normal 0.34-5.60 [facility] Comment on above: Performed By: #### 3 6546935, 66940865, 84256952 ####[facility] [address] [place] [address] Consent for Treatmenton Consent for Treatment [id number]#1.00CD:1 27 Normal [facility] Discharge Instructionson Discharge Instructions [id number]#1.00CD: 127 Normal [facility] ED Clinical Summaryon 2022 ED Clinical Summary Normal [facility] ED Note-Physicianon 11-12-19 ED Note-Physician Normal [facility] Comment on above: Result Comment: Elec tronically Signed By: Elliott Hicks PA-C\.br\Date and Time Signed: 11/11/22 11:36 EDT\.br\Electronically Co-Signed By: Isai Hall DO\.br\Date and Time Co-Signed: 11/11/22 13:15 EDT ED Patient Education Noteon 11-11-2022 ED Patient Education Note Normal [facility] ED Patient Summaryon 023 ED Patient Summary Normal [facility] Pre-Arrival Noteon Pre-Arrival Note Normal [facility] Auto Diffon 11-04-2022 Basophils/100 WBC (Bld) 0.8 % Normal 0.0-2.0 [facility] Comment on above: Order Comment: Order Added by Discern Expert. Performed By: #### 2 180626, 4603686, 1995238, 99598946 ####[facility] [address] [place] [address] Basophils/Leukocytes Auto (Bld) [Pure # fraction] 0.0 E9/L Normal 0.0-0.2 [facility] Comment on above: Order Comment: Order Added by Discern Expert. Performed By: #### 2 172279, 9333038, 0017765, 70576973 ####[facility] [address] [place] [address] Eosinophils/100 WBC (Bld) 1.1 % Normal 0.0-8.0 [facility] Comment on above: Order Comment: Order Added by Discern Expert. Performed By: #### 2 955670, 3212930, 9665919, 15506846 ####[facility] [address] [place] [address] Eosinophils/Leukocyte s Auto (Bld) [Pure # fraction] 0.0 E9/L Normal 0.0-0.5 [facility] Comment on above: Order Comment: Order Added by Discern Expert. Performed By: #### 2 779130, 0800939, 4431103, 95797533 ####[address] [address] Lymphocytes/100 WBC (Bld) 40.7 % Normal 14.0-50.0 [facility] Comment on above: Order Comment: Order Added by Discern Expert. Performed By: #### 2 582486, 9661844, 0685592, 26007443 ####[address] [address] Lymphocytes/Leukocyte s Auto (Bld) [Pure # fraction] 1.6 E9/L Normal 1.0-4.0 [facility] Comment on above: Order Comment: Order Added by Discern Expert. Performed By: #### 2 990998, 1230136, 1289735, 58704220 ####[address] [address] Monocytes/100 WBC (Bld) 6.9 % Normal 4.0-14.0 [facility] Comment on above: Order Comment: Order Added by Discern Expert. Performed By: #### 2 700447, 3248785, 9031452, 74343771 ####[address] [address] Monocytes/Leukocytes Auto (Bld) [Pure # fraction] 0.3 E9/L Normal 0.2-1.0 [facility] Comment on above: Order Comment: Order Added by Discern Expert. Performed By: #### 2 948380, 0659856, 6842212, 76283695 ####[address] [address] Neutrophils/100 WBC (Bld) 50.5 % Normal 36.0-75.0 [facility] Comment on above: Order Comment: Order Added by Discern Expert. Performed By: #### 2 808948, 3522692, 0432375, [id number] ####[address] [place] [address] Neutrophils/Leukocyte s Auto (Bld) [Pure # fraction] 2.0 E9/L Normal 2.0-7.5 [facility] Comment on above: Order Comment: Order Added by Discern Expert. Performed By: #### 2 564750, 4013029, 2907988, [id number] ####[facility] [address] [place] [address] BMPon 11-04-2022 Creatinine [Mass/Vol] 0.6 mg/dL Normal 0.5-1.3 [facility] Comment on above: Performed By: #### 2 991314, 6870861, 8325489, 24940997 ####[facility] [address] [place] [address] Urea nitrogen [Mass/Vol] 7 mg/dL Normal 5-21 [facility] Comment on above: Performed By: #### 2 516419, 1565081, 1341695, [id number] ####[facility] [address] [place] [address] Urea nitrogen/Creatinine [Mass ratio] 12 No Units Normal 10-20 [facility] Comment on above: Performed By: #### 2 309779, 3234482, 3613563, 37738640 ####[facility] [address] [place] [place] [address] Anion gap [Moles/Vol] 9 mmol/L Normal 6-16 [facility] Comment on above: Performed By: #### 2 831191, 8969985, 0333439, 35648995 ####[facility] [address] [place] [address] Calcium [Mass/Vol] 9.0 mg/dL Normal 8.9-11.1 [facility] Comment on above: Performed By: #### 2 025899, 6889427, 8034861, 79845151 ####[facility] [address] [place] [address] Chloride [Moles/Vol] 105 mmol/L Normal 101-111 [facility] Comment on above: Performed By: #### 2 022647, 4815251, 9038714, 55479125 ####[facility] [address] [place] [address] CO2 [Moles/Vol] 27 mmol/L Normal 21-31 [facility] Comment on above: Performed By: #### 2 386454, 7884600, 9196566, 67011157 ####[facility] [address] [place] [address] Glucose [Mass/Vol] 115 mg/dL Normal 55-199 [facility] Comment on above: Result Comment: If t his glucose result represents a fasting glucose, interpretation should refer to the following reference range: 55-99 mg/dL Performed By: #### 2 294695, 2547699, 3866945, 16157029 ####[facility] [address] [place] [address] Potassium [Moles/Vol] 4.3 mmol/L Normal 3.5-5.3 [facility] Comment on above: Performed By: #### 2 356425, 3798007, 2271812, 28711629 ####[facility] [address] [place] [address] Sodium [Moles/Vol] 137 mmol/L Normal 135-145 [facility] Comment on above: Performed By: #### 2 254570, 7910508, 4202166, 77321050 ####[facility] [address] [place] [address] CBC w/ Auto Diffon 3 Erythrocyte distribution width (RBC) [Ratio] 14.4 % High 10.9-14.2 [facility] Comment on above: Performed By: #### 2 824807, 1695768, 3404047, 75589772 ####[facility] [address] [place] [address] Hematocrit (Bld) [Volume fraction] 42.6 % Normal 34.0-46.0 [facility] Comment on above: Performed By: #### 2 401323, 3097776, 0659720, 59009220 ####[address] [place] [address] Hemoglobin (Bld) [Mass/Vol] 14.4 g/dL Normal 12.0-16.0 [facility] Comment on above: Performed By: #### 2 298753, 6281570, 3468324, 40974780 ####[address] [address] MCH (RBC) [Entitic mass] 33.1 pg Normal 27.0-34.0 [facility] Comment on above: Performed By: #### 2 281533, 3974607, 9602546, 99840879 ####[address] [address] MCHC (RBC) [Mass/Vol] 33.8 g/dL Normal 31.4-36.0 [facility] Comment on above: Performed By: #### 2 871315, 9813304, 4164901, 88085370 ####[id number] MCV (RBC) [Entitic vol] 98.0 fL Normal 80.0-100.0 [facility] Comment on above: Performed By: #### 2 006726, 6173559, 1109805, 62381809 ####[address] [address] Platelet mean volume (Bld) [Entitic vol] 8.6 fL Normal 6.4-10.8 [facility] Comment on above: Performed By: #### 2 489491, 6558074, 9946815, 53111397 ####[address] [address] Platelets (Bld) [#/Vol] 113.0 E9/L Low 150.0-500.0 [facility] Comment on above: Performed By: #### 2 207629, 4054782, 0234899, 61226162 ####[address] [address] RBC (Bld) [#/Vol] 4.4 E12/L Normal 4.3-5.9 [facility] Comment on above: Performed By: #### 2 926753, 1258104, 3905927, 52214478 ####[facility] [address] [place] [address] WBC corrected for nucl RBC Auto (Bld) [#/Vol] 4.0 E9/L Normal 4.0-11.0 [facility] Comment on above: Performed By: #### 2 389820, 9998091, 3444219, 10547869 ####[facility] [address] [place] [address] CHEMISTRYOrdered By: SYSTEM SYSTEM on 11-04-2022 Anion gap [Moles/Vol] 9 mmol/L Normal 6 - 16 mEq/L [facility] [place] [facility] Calcium [Mass/Vol] 9.0 mg/dL Normal 8.9 - 11. 1 mg/dL [facility] Chloride [Moles/Vol] 105 mmol/L Normal 101 - 1 11 mmol/L [facility] CO2 [Moles/Vol] 27 mmol/L Normal 21 - 31 mmol/L [facility] Creatinine [Mass/Vol] 0.6 mg/dL Normal 0.5 - 1.3 mg/dL [facility] GFR/1.73 sq M.predicted among non-blacks MDRD (S/P/Bld) [Vol rate/Area] 124 mL/min/1.73 m2 Normal >=59mL/min/1 .73 m2 [facility] [place] Glucose [Mass/Vol] 115 mg/dL Normal 55 - 199 mg/dL [facility] Potassium [Moles/Vol] 4.3 mmol/L Normal 3.5 - 5.3 mmol/L [facility] Sodium [Moles/Vol] 137 mmol/L Normal 135 - 145 mmol/L [facility] Urea nitrogen [Mass/Vol] 7 mg/dL Normal 5 - 21 mg/dL [facility] Urea nitrogen/Creatinine [Mass ratio] 12 mg/mg Normal 10 - 20 [facility] Consent for Treatmenton 10-13 Consent for Treatment [id number]#[id number]: 127 Normal [facility] Discharge Instructionson Discharge Instructions [id number]#[id number]: 127 Normal [facility] ED Clinical Summaryon 2022 ED Clinical Summary Normal [facility] ED Note-Physicianon 11-05-19 ED Note-Physician Normal [facility] Comment on above: Result Comment: Elec tronically Signed By: Gladys Saini M.D.\Date and Time Signed: 11/04/22 16:02 EDT ED Patient Education Noteon 11-04-2022 ED Patient Education Note Normal [facility] ED Patient Summaryon 023 ED Patient Summary Normal [facility] HEMATOLOGYOrdered By: SYSTEM SYSTEM on 11-04-2022 Basophils/100 WBC (Bld) 0.8 % Normal 0.0 - 2.0 % [facility] HemeAutoSS Basophils/Leukocytes Auto (Bld) [Pure # fraction] 0.0 E9/L Normal 0.0 - 0.2 E9/L [facility] HemeAutoSS Eosinophils/100 WBC (Bld) 1.1 % Normal 0.0 - 8.0 % [facility] HemeAutoSS Eosinophils/Leukocyte s Auto (Bld) [Pure # fraction] 0.0 E9/L Normal 0.0 - 0.5 E9/L [facility] HemeAutoSS Lymphocytes/100 WBC (Bld) 40.7 % Normal 14.0 - 50.0 % [facility] HemeAutoSS Lymphocytes/Leukocyte s Auto (Bld) [Pure # fraction] 1.6 E9/L Normal 1.0 - 4.0 E9/L [facility] HemeAutoSS Monocytes/100 WBC (Bld) 6.9 % Normal 4.0 - 14.0 % [facility] HemeAutoSS Monocytes/Leukocytes Auto (Bld) [Pure # fraction] 0.3 E9/L Normal 0.2 - 1.0 E9/L [facility] HemeAutoSS Neutrophils/100 WBC (Bld) 50.5 % Normal 36.0 - 75.0 % [facility] HemeAutoSS Neutrophils/Leukocyte s Auto (Bld) [Pure # fraction] 2.0 E9/L Normal 2.0 - 7.5 E9/L [facility] HemeAutoSS HEMATOLOGYOrdered By: Marlyn Villa on 11-04-2022 Erythrocyte distribution width (RBC) [Ratio] 14.4 % High 10.9 - 14.2 % [facility] HemeAutoSS Hematocrit (Bld) [Volume fraction] 42.6 % Normal 34.0 - 46.0 % [facility] HemeAutoSS Hemoglobin (Bld) [Mass/Vol] 14.4 g/dL Normal 12.0 - 16.0 gm/dL [facility] HemeAutoSS MCH (RBC) [Entitic mass] 33.1 pg Normal 27.0 - 34.0 pg [facility] HemeAutoSS MCHC (RBC) [Mass/Vol] 33.8 g/dL Normal 31.4 - 36.0 gm/dL [facility] HemeAutoSS MCV (RBC) [Entitic vol] 98.0 fL Normal 80.0 - 100.0 fL [facility] HemeAutoSS Platelet mean volume (Bld) [Entitic vol] 8.6 fL Normal 6.4 - 10.8 fL [facility] HemeAutoSS Platelets (Bld) [#/Vol] 113.0 E9/L Low 150.0 - 500.0 E9/L [facility] HemeAutoSS RBC (Bld) [#/Vol] 4.4 E12/L Normal 4.3 - 5.9 E12/L [facility] HemeAutoSS WBC corrected for nucl RBC Auto (Bld) [#/Vol] 4.0 E9/L Normal 4.0 - 11.0 E9/L [facility] HemeAutoSS eGFRon 11-04-2022 GFR/1.73 sq M.predicted among non-blacks MDRD (S/P/Bld) [Vol rate/Area] 124 mL/min/1.73 m2 Normal >=59 [facility] Comment on above: Order Comment: Order added by Discern Expert. Result Comment: Surveillance Sensor Officer justin kidney disease could be indicated at eGFR's of less than 60 mL/min/1.73m2. Kidney failure is indicated at less than 15 mL/min/1.73m2. Performed By: #### 2 173102, 9723167, 4970200, 49405574 ####[facility] [address] [facility] [place] [address] Registrationon 10-08-2022 Registration [id number]#1.00CD :127 Normal [facility] Consenton 10-05-2022 Consent [id number]#1.00CD :127 Normal [facility] Insurance Correspondenceon 0 09-12-2022 Insurance Correspondence [id number]#1.00CD: 127 Normal [facility] Physician Referralon 023 Physician Referral [id number]#1.00CD: 127 Normal [facility] ED Note-Physicianon 09-11-19 ED Note-Physician [id number]#[id number]: 127 [facility] Alanine aminotransferase [En zymatic activity/volume] in Serum or PlasmaOrdered By: Declan Marina on 09-06-2022 ALT [Catalytic activity/Vol] 54 U/L 7-52 [facility] Albumin [Mass/volume] in Ser um or Plasma by Bromocresol green (BCG) dye binding methoOrdered By: Declan Marina on 09-06-2022 Albumin BCG dye [Mass/Vol] 4.2 g/dL 3.5-5.7 [facility] Alkaline phosphatase [Enzyma tic activity/volume] in Serum or PlasmaOrdered By: Declan Marina on 09-06-2022 ALP [Catalytic activity/Vol] 106 U/L 34-104 [facility] Amphetamine Screen Ql (U)Ord ered By: Declan Marina on 09-06-2022 Amphetamines Ql (U) Negative Negative [facility] Aspartate aminotransferase [ Enzymatic activity/volume] in Serum or PlasmaOrdered By: Declan Marina on 09-06-2022 AST [Catalytic activity/Vol] 80 U/L 13-39 [facility] Automated erythrocytes count in urine sediment (number/area)Ordered By: Declan Marina on 09-06-2022 RBC Auto (Urine sed) [#/Area] None seen [HPF] 0-4 [facility] Automated leukocytes count i n urine sediment (number/area)Ordered By: Declan Marina on 09-06-2022 WBC Auto (Urine sed) [#/Area] 0-1 [HPF] 0-4 [facility] Barbiturates [Presence] in U rine by Screen methodOrdered By: Declan Marina on 09-06-2022 Barbiturates Screen Ql (U) Negative Negative [facility] Basophils Auto (Bld) [#/Vol] Ordered By: Declan Marina on 09-06-2022 Basophils (Bld) [#/Vol] 0.1 10*3/uL 0.0-0.2 [facility] Basophils/100 WBC Auto (Bld) Ordered By: Declan Marina on 09-06-2022 Basophils/100 WBC (Bld) 0.7 % . [facility] Benzodiazepines Screen Ql (U )Ordered By: Declan Marina on 09-06-2022 Benzodiazepines Ql (U) Negative Negative [facility] Benzoylecgonine [Presence] i n Urine by Screen methodOrdered By: Declan Marina on 09-06-2022 Benzoylecgonine Screen Ql (U) Negative Negative [facility] Bilirubin Test strip Ql (U)O rdered By: Declan Marina on 09-06-2022 Bilirubin Ql (U) Negative Negative [facility] Bilirubin.total [Mass/volume ] in Serum or PlasmaOrdered By: Declan Marina on 09-06-2022 Bilirubin [Mass/Vol] 0.6 mg/dL 0.3-1.0 [facility] Calcium [Mass/volume] in Ser um or PlasmaOrdered By: Declan Marina on 09-06-2022 Calcium [Mass/Vol] 9.6 mg/dL 8.6-10.3 [facility] Cannabinoids [Presence] in U rine by Screen methodOrdered By: Declan Marina on 09-06-2022 Cannabinoids Screen Ql (U) Negative Negative [facility] Comment on above: These are unconfirme d results and should not be used for legal purposes. Drug Cut-Off Concentration: AMPH 1000 ng/mL JANELL 200 ng/mL JAMES 200 ng/mL COCM 300 ng/mL OP 300 ng/mL PCP 25 ng/mL THC 20 ng/mL Carbon dioxide, total [Moles /volume] in Serum or PlasmaOrdered By: Declan Marina on 09-06-2022 CO2 [Moles/Vol] 27.1 mmol/L 21.0-31.0 [facility] Chloride [Moles/volume] in S marbella or PlasmaOrdered By: Declan Marina on 09-06-2022 Chloride [Moles/Vol] 98 mmol/L 98-107 [facility] Color Auto (U)Ordered By: Akiko middletonabbie Salas on 09-06-2022 Color (U) Yellow Yellow [facility] Complete Blood Count Auto Di ffon 09-06-2022 Basophils (Bld) [#/Vol] 0.1 10*3/uL Normal 0.0-0.2 [facility] Comment on above: Result Comment: PERF ORMED BY: [place] [address] PATHOLOGIST FOOD AND BEVERAGE COORDINATOR LEE CARDOSO M.D. Performed By: #### H S TROP, CBC, DDIMER, PP, MG, BMP #### [facility] [address] [place] [address] Basophils/100 WBC (Bld) 0.7 % Normal . [facility] Comment on above: Performed By: #### H S TROP, CBC, DDIMER, PP, MG, BMP #### [facility] [address] Eosinophils (Bld) [#/Vol] 0.0 10*3/uL Normal 0.0-0.45 [facility] Comment on above: Performed By: #### H S TROP, CBC, DDIMER, PP, MG, BMP #### [facility] [address] Eosinophils/100 WBC (Bld) 0.2 % Normal . [facility] Comment on above: Performed By: #### H S TROP, CBC, DDIMER, PP, MG, BMP #### [facility] [address] [place] [address] Erythrocyte distribution width (RBC) [Ratio] 14.2 % Normal 11.9-15.3 [facility] Comment on above: Performed By: #### H S TROP, CBC, DDIMER, PP, MG, BMP #### [facility] [address] [place] [address] Hematocrit (Bld) [Volume fraction] 43.2 % Normal 34.0-46.4 [facility] Comment on above: Performed By: #### H S TROP, CBC, DDIMER, PP, MG, BMP #### [address] Hemoglobin (Bld) [Mass/Vol] 14.7 g/dL Normal 11.8-15.4 [facility] Comment on above: Performed By: #### H S TROP, CBC, DDIMER, PP, MG, BMP #### [address] Lymphocytes (Bld) [#/Vol] 1.5 10*3/uL Normal 1.00-4.8 [facility] Comment on above: Performed By: #### H S TROP, CBC, DDIMER, PP, MG, BMP #### [address] Lymphocytes/100 WBC (Bld) 16.1 % Normal . [facility] Comment on above: Performed By: #### H S TROP, CBC, DDIMER, PP, MG, BMP #### [address] MCH (RBC) [Entitic mass] 31.9 pg Normal 24.7-34.3 [facility] Comment on above: Performed By: #### H S TROP, CBC, DDIMER, PP, MG, BMP #### [address] MCV (RBC) [Entitic vol] 93.6 fL Normal 80-100 [facility] Comment on above: Performed By: #### H S TROP, CBC, DDIMER, PP, MG, BMP #### [address] Mean Corpuscular HGB Conc 34.1 g/dL Normal 32.0-35.0 [facility] Comment on above: Performed By: #### H S TROP, CBC, DDIMER, PP, MG, BMP #### [address] Monocytes (Bld) [#/Vol] 0.3 10*3/uL Normal 0.0-0.8 [facility] Comment on above: Performed By: #### H S TROP, CBC, DDIMER, PP, MG, BMP #### [address] Monocytes/100 WBC (Bld) 15.56 % Normal 0.00-20.00 [facility] Comment on above: Performed By: #### H S TROP, CBC, DDIMER, PP, MG, BMP #### [address] Monocytes/100 WBC (Bld) 3.0 % Normal . [facility] Comment on above: Performed By: #### H S TROP, CBC, DDIMER, PP, MG, BMP #### [address] Neutrophils (Bld) [#/Vol] 7.6 10*3/uL Normal 1.8-7.7 [facility] Comment on above: Performed By: #### H S TROP, CBC, DDIMER, PP, MG, BMP #### [address] Neutrophils/100 WBC (Bld) 80.0 % Normal . [facility] Comment on above: Performed By: #### H S TROP, CBC, DDIMER, PP, MG, BMP #### [place] [address] [place] NRBC% 0.1 /100{WBC} Normal 0-0.5 [facility] Comment on above: Performed By: #### H S TROP, CBC, DDIMER, PP, MG, BMP #### [address] Platelet mean volume (Bld) [Entitic vol] 7.7 fL Normal 6.3-10.7 [facility] Comment on above: Performed By: #### H S TROP, CBC, DDIMER, PP, MG, BMP #### [place] [address] [place] Platelets (Bld) [#/Vol] 230 10*3/uL Normal 150-450 [facility] Comment on above: Performed By: #### H S TROP, CBC, DDIMER, PP, MG, BMP #### [address] RBC (Bld) [#/Vol] 4.62 10*6/uL Normal 3.60-5.00 [facility] Comment on above: Performed By: #### H S TROP, CBC, DDIMER, PP, MG, BMP #### [address] WBC (Bld) [#/Vol] 9.5 10*3/uL Normal 3.8-11.6 [facility] Comment on above: Performed By: #### H S TROP, CBC, DDIMER, PP, MG, BMP #### [address] Comprehensive Metabolic Pane mary beth 09-06-2022 Albumin [Mass/Vol] 4.2 g/dL Normal 3.5-5.7 [facility] Comment on above: Performed By: #### H S TROP, CBC, DDIMER, PP, MG, BMP #### [address] Albumin/Globulin [Mass ratio] 1.1 {ratio} Normal [facility] Comment on above: Performed By: #### H S TROP, CBC, DDIMER, PP, MG, BMP #### [address] ALP [Catalytic activity/Vol] 106 U/L High 34-104 [facility] Comment on above: Performed By: #### H S TROP, CBC, DDIMER, PP, MG, BMP #### [address] ALT [Catalytic activity/Vol] 54 U/L High 7-52 [facility] Comment on above: Performed By: #### H S TROP, CBC, DDIMER, PP, MG, BMP #### [address] [place] [address] [place] Anion gap [Moles/Vol] 12.0 mmol/L Normal 6.0-15.0 [facility] Comment on above: Performed By: #### H S TROP, CBC, DDIMER, PP, MG, BMP #### [address] AST [Catalytic activity/Vol] 80 U/L High 13-39 [facility] Comment on above: Performed By: #### H S TROP, CBC, DDIMER, PP, MG, BMP #### [address] Bilirubin [Mass/Vol] 0.6 mg/dL Normal 0.3-1.0 [facility] Comment on above: Performed By: #### H S TROP, CBC, DDIMER, PP, MG, BMP #### [address] Calcium [Mass/Vol] 9.6 mg/dL Normal 8.6-10.3 [facility] Comment on above: Performed By: #### H S TROP, CBC, DDIMER, PP, MG, BMP #### [address] Chloride [Moles/Vol] 98 mmol/L Normal 98-107 [facility] Comment on above: Performed By: #### H S TROP, CBC, DDIMER, PP, MG, BMP #### [facility] [address] [place] [address] CO2 [Moles/Vol] 27.1 mmol/L Normal 21.0-31.0 [facility] Comment on above: Performed By: #### H S TROP, CBC, DDIMER, PP, MG, BMP #### [address] Creatinine [Mass/Vol] 0.51 mg/dL Low 0.60-1.20 [facility] Comment on above: Performed By: #### H S TROP, CBC, DDIMER, PP, MG, BMP #### [address] [place] [address] [place] Creatinine Clr Calc Pharmacy 149.26 [facility] Comment on above: Performed By: #### H S TROP, CBC, DDIMER, PP, MG, BMP #### [facility] [address] GFR/1.73 sq M.predicted MDRD (S/P/Bld) [Vol rate/Area] mL/min/{1.73_m2} [facility] Comment on above: Performed By: #### H S TROP, CBC, DDIMER, PP, MG, BMP #### [facility] [address] Globulin (S) [Mass/Vol] 3.9 g/dL [facility] Comment on above: Performed By: #### H S TROP, CBC, DDIMER, PP, MG, BMP #### [address] Glucose [Mass/Vol] 95 mg/dL Normal 70-100 [facility] Comment on above: Result Comment: [facility] Glucose Reference Range is dependent on time and content of last meal. Glucose of more than 200 mg/dL in a nonstressed, ambulatory subject supports the diagnosis of Diabetes Mellitus. ADA recommended reference range Performed By: #### H S TROP, CBC, DDIMER, PP, MG, BMP #### [address] Potassium [Moles/Vol] 4.1 mmol/L Normal 3.5-5.1 [facility] Comment on above: Performed By: #### H S TROP, CBC, DDIMER, PP, MG, BMP #### [facility] [address] Protein [Mass/Vol] 8.1 g/dL Normal 6.4-8.9 [facility] Comment on above: Performed By: #### H S TROP, CBC, DDIMER, PP, MG, BMP #### [facility] [address] Sodium [Moles/Vol] 133 mmol/L Low 136-145 [facility] Comment on above: Performed By: #### H S TROP, CBC, DDIMER, PP, MG, BMP #### [facility] [address] Urea nitrogen [Mass/Vol] 8 mg/dL Normal 09-04 [facility] Comment on above: Performed By: #### H S TROP, CBC, DDIMER, PP, MG, BMP #### [facility] [address] Creatinine [Mass/volume] in Serum or PlasmaOrdered By: Declan Marina on 09-06-2022 Creatinine [Mass/Vol] 0.51 mg/dL 0.60-1.20 [facility] Dipstick and Microscopicon 0 09-06-2022 Appearance (U) Clear Normal Clear [facility] Comment on above: Order Comment: Name Collection Type:: Clean-Voided Midstream Performed By: #### E ODALIS, CMP, CBC #### [address] Bacteria,Urine 1+ High None Seen [facility] Comment on above: Order Comment: Name Collection Type:: Clean-Voided Midstream Performed By: #### E ODALIS, CMP, CBC #### [address] Bilirubin,Urine Negative Normal Negative [facility] Comment on above: Order Comment: Name Collection Type:: Clean-Voided Midstream Performed By: #### E ODALIS, CMP, CBC #### [place] [address] [place] Color (U) Yellow Normal Yellow [facility] Comment on above: Order Comment: Name Collection Type:: Clean-Voided Midstream Performed By: #### E ODALIS, CMP, CBC #### [facility] [address] [place] [address] [place] Glucose Ql (U) Normal Normal Normal [facility] Comment on above: Order Comment: Name Collection Type:: Clean-Voided Midstream Performed By: #### E ODALIS, CMP, CBC #### [facility] [address] [place] [address] [place] Hyaline Casts,Urine 0-8 Normal 0-8 [facility] Comment on above: Order Comment: Name Collection Type:: Clean-Voided Midstream Result Comment: PERF ORMED BY: [place] [address] PATHOLOGIST FOOD AND BEVERAGE COORDINATOR LEE CARDOSO M.D. Performed By: #### E ODALIS, CMP, CBC #### [address] Ketones Ql (U) Negative Normal Negative [facility] Comment on above: Order Comment: Name Collection Type:: Clean-Voided Midstream Performed By: #### E ODALIS, CMP, CBC #### [address] Leukocyte esterase Test strip Ql (U) 1+ High Negative [facility] Comment on above: Order Comment: Name Collection Type:: Clean-Voided Midstream Performed By: #### E ODALIS, CMP, CBC #### [address] Nitrite,Urine Negative Normal Negative [facility] Comment on above: Order Comment: Name Collection Type:: Clean-Voided Midstream Performed By: #### E ODALIS, CMP, CBC #### [address] Occult Blood,Urine 2+ High Negative [facility] Comment on above: Order Comment: Name Collection Type:: Clean-Voided Midstream Result Comment: PERF ORMED BY: [place] [address] PATHOLOGIST FOOD AND BEVERAGE COORDINATOR LEE CARDOSO M.D. Performed By: #### E ODALIS, CMP, CBC #### [facility] [address] [place] [address] [place] pH (U) 8.5 [pH] Normal 5.0-9.0 [facility] Comment on above: Order Comment: Name Collection Type:: Clean-Voided Midstream Performed By: #### E ODALIS, CMP, CBC #### [address] [address] [place] Protein,Urine Trace High Negative [facility] Comment on above: Order Comment: Name Collection Type:: Clean-Voided Midstream Performed By: #### E ODALIS, CMP, CBC #### [address] RBC,Urine None Seen Normal 0-4 [facility] Comment on above: Order Comment: Name Collection Type:: Clean-Voided Midstream Performed By: #### E ODALIS, CMP, CBC #### [address] Specificy [place],Urine 1.012 Normal 1.001-1.030 [facility] Comment on above: Order Comment: Name Collection Type:: Clean-Voided Midstream Performed By: #### E ODALIS, CMP, CBC #### [address] Squamous Epithelial Cell,Urine 3-4 High 0-2 [facility] Comment on above: Order Comment: Name Collection Type:: Clean-Voided Midstream Performed By: #### E ODALIS, CMP, CBC #### [address] Urobilinogen,Urine Normal Normal Normal [facility] Comment on above: Order Comment: Name Collection Type:: Clean-Voided Midstream Performed By: #### E ODALIS, CMP, CBC #### [address] WBC LM.HPF (Urine sed) [#/Area] 0 /[HPF] Normal 0-4 [facility] Comment on above: Order Comment: Name Collection Type:: Clean-Voided Midstream Performed By: #### E ODALIS, CMP, CBC #### [place] [address] [place] Drug Screen,Urineon 09-07-19 23 Amphetamine Screen,Urine Negative Normal Negative [facility] Comment on above: Performed By: #### E ODALIS, CMP, CBC #### [address] Barbiturate Screen,Urine Negative Normal Negative [facility] Comment on above: Performed By: #### E ODALIS, CMP, CBC #### [facility] [address] [place] [address] Benzodiazepines Screen,Urine Negative Normal Negative [facility] Comment on above: Performed By: #### E ODALIS, CMP, CBC #### [facility] [address] [place] [address] Cannabinoid Screen,Urine Negative Normal Negative [facility] Comment on above: Result Comment: Thes e are unconfirmed results and should not be used for legal purposes. Drug Cut-Off Concentration: AMPH 1000 ng/mL JANELL 200 ng/mL JAMES 200 ng/mL COCM 300 ng/mL OP 300 ng/mL PCP 25 ng/mL THC 20 ng/mL PERFORMED BY: [place] [address] PATHOLOGIST FOOD AND BEVERAGE COORDINATOR LEE CARDOSO M.D. Performed By: #### E ODALIS CMP, CBC #### [address] Cocaine Screen,Urine Negative Normal Negative [facility] Comment on above: Performed By: #### E ODALIS CMP, CBC #### [facility] [address] [place] [address] Opiate Screen,Urine Negative Normal Negative [facility] Comment on above: Performed By: #### E ODALIS, CMP, CBC #### [facility] [address] [place] [address] Phencyclidine Screen,Urine Negative Normal Negative [facility] Comment on above: Performed By: #### E ODALIS, CMP, CBC #### [facility] [address] [place] [address] [place] Eosinophils Auto (Bld) [#/Vo l]Ordered By: Declan Marina on 09-06-2022 Eosinophils (Bld) [#/Vol] 0.0 10*3/uL 0.0-0.45 [facility] Eosinophils/100 WBC Auto (Bl d)Ordered By: Declan Marina on 09-06-2022 Eosinophils/100 WBC (Bld) 0.2 % . [facility] Erythrocyte distribution wid th Auto (RBC) [Ratio]Ordered By: Declan Marina on 09-06-2022 Erythrocyte distribution width (RBC) [Ratio] 14.2 % 11.9-15.3 [facility] Ethanol [Mass/volume] in Ser um or PlasmaOrdered By: Declan Marina on 09-06-2022 Ethanol [Mass/Vol] mg/dL [facility] Ethanol [Mass/Vol] TNP [facility] Comment on above: Test not performed Ethyl Alcohol Profileon 08-12 Ethanol [Mass/Vol] mg/dL Normal [facility] Comment on above: Performed By: #### H S TROP, CBC, DDIMER, PP, MG, BMP #### [facility] [address] Percent Ethanol Not performed Normal [facility] Comment on above: Result Comment: PERF ORMED BY: [place] [address] PATHOLOGIST FOOD AND BEVERAGE COORDINATOR LEE CARDOSO M.D. Performed By: #### H S TROP, CBC, DDIMER, PP, MG, BMP #### [facility] [address] Globulin Calc (S) [Mass/Vol] Ordered By: Declan Marina on 09-06-2022 Globulin (S) [Mass/Vol] 3.9 g/dL [facility] Glucose [Mass/volume] in Ser um or PlasmaOrdered By: Declan Marina on 09-06-2022 Glucose [Mass/Vol] 95 mg/dL 70-100 [facility] Comment on above: ADA recommended refe rence rangeRandom Glucose Reference Range is dependent on time and content of last meal. Glucose of more than 200 mg/dL in a nonstressed, ambulatory subject supports the diagnosis of Diabetes Mellitus. Hematocrit Auto (Bld) [Volum e fraction]Ordered By: Declan Marina on 09-06-2022 Hematocrit (Bld) [Volume fraction] 43.2 % 34.0-46.4 [facility] Hemoglobin [Mass/volume] in BloodOrdered By: Declan Marina on 09-06-2022 Hemoglobin (Bld) [Mass/Vol] 14.7 g/dL 11.8-15.4 [facility] Ketones Auto test strip (U) [Mass/Vol]Ordered By: Declan Marina on 09-06-2022 Ketones (U) [Mass/Vol] Negative Negative [facility] Laboratory - UrinalysisOrder ed By: Declan Marina on 09-06-2022 Hyaline casts LM Ql (Urine sed) 0-8 [LPF] 0-8 [facility] Leukocytes [#/volume] correc jose for nucleated erythrocytes in Blood by Automated counOrdered By: Declan Marina on 09-06-2022 WBC corrected for nucl RBC Auto (Bld) [#/Vol] 9.5 10*3/uL 3.8-11.6 [facility] Lymphocytes Auto (Bld) [#/Vo l]Ordered By: Declan Marina on 09-06-2022 Lymphocytes (Bld) [#/Vol] 1.5 10*3/uL 1.00-4.8 [facility] Lymphocytes/100 WBC Auto (Bl d)Ordered By: Declan Marina on 09-06-2022 Lymphocytes/100 WBC (Bld) 16.1 % . [facility] MCH Auto (RBC) [Entitic mass ]Ordered By: Declan Marina on 09-06-2022 MCH (RBC) [Entitic mass] 31.9 pg 24.7-34.3 [facility] MCHC Auto (RBC) [Mass/Vol]Or dered By: Declan Marina on 09-06-2022 MCHC (RBC) [Mass/Vol] 34.1 g/dL 32.0-35.0 [facility] MCV Auto (RBC) [Entitic vol] Ordered By: Declan Marina on 09-06-2022 MCV (RBC) [Entitic vol] 93.6 fL 80-100 [facility] Magnesiumon 09-06-2022 Magnesium [Mass/Vol] 1.3 mg/dL Low 1.9-2.7 [facility] Comment on above: Result Comment: PERF ORMED BY: [facility] [address] [address] PATHOLOGIST FOOD AND BEVERAGE COORDINATOR LEE CARDOSO M.D. Performed By: #### H S TROP, CBC, DDIMER, PP, MG, BMP #### [facility] [address] Magnesium [Mass/volume] in S marbella or PlasmaOrdered By: Declan Marina on 09-06-2022 Magnesium [Mass/Vol] 1.3 mg/dL 1.9-2.7 [facility] Monocyte distribution width [Entitic volume] in Blood by AutomatedOrdered By: Declan Marina on 09-06-2022 Monocyte distribution width Auto (Bld) [Entitic vol] 15.56 % 0.00-20.00 [facility] Monocytes Auto (Bld) [#/Vol] Ordered By: Declan Marina on 09-06-2022 Monocytes (Bld) [#/Vol] 0.3 10*3/uL 0.0-0.8 [facility] Monocytes/100 WBC Auto (Bld) Ordered By: Declan Marina on 09-06-2022 Monocytes/100 WBC (Bld) 3.0 % . [facility] Neutrophils Auto (Bld) [#/Vo l]Ordered By: Declan Marina on 09-06-2022 Neutrophils (Bld) [#/Vol] 7.6 10*3/uL 1.8-7.7 [facility] Neutrophils/100 WBC Auto (Bl d)Ordered By: Declan Marina on 09-06-2022 Neutrophils/100 WBC (Bld) 80.0 % . [facility] Nitrite Test strip Ql (U)Ord ered By: Declan Marina on 09-06-2022 Nitrite Ql (U) Negative Negative [facility] No Panel InformationOrdered By: Declan Marina on 09-06-2022 Estimated GFR (CKD-EPI) > 60.0 mL/Min [facility] Creatinine Clearance (Chem 149.26 [facility] Nucleated erythrocytes [Pres ence] in Blood by Automated countOrdered By: Declan Marina on 09-06-2022 Nucleated RBC Auto Ql (Bld) 0.1 /100{WBC} 0-0.5 [facility] Opiates [Presence] in Urine by Screen methodOrdered By: Declan Marina on 09-06-2022 Opiates Screen Ql (U) Negative Negative [facility]ir [facility] Phencyclidine Screen Ql (U)O rdered By: Declan Marina on 09-06-2022 Phencyclidine Ql (U) Negative Negative [facility] Platelet mean volume Auto (B ld) [Entitic vol]Ordered By: Declan Marina on 09-06-2022 Platelet mean volume (Bld) [Entitic vol] 7.7 fL 6.3-10.7 [facility] Platelets Auto (Bld) [#/Vol] Ordered By: Declan Marina on 09-06-2022 Platelets (Bld) [#/Vol] 230 10*3/uL 150-450 [facility] Potassium [Moles/volume] in Serum or PlasmaOrdered By: Declan Marina on 09-06-2022 Potassium [Moles/Vol] 4.1 mmol/L 3.5-5.1 [facility] Protein Auto test strip (U) [Mass/Vol]Ordered By: Declan Marina on 09-06-2022 Protein (U) [Mass/Vol] Trace mg/dL Negative [facility] Protein [Mass/volume] in Ser um or PlasmaOrdered By: Declan Marina on 09-06-2022 Protein [Mass/Vol] 8.1 g/dL 6.4-8.9 [facility] RBC Auto (Bld) [#/Vol]Ordere d By: Declan Marina on 09-06-2022 RBC (Bld) [#/Vol] 4.62 10*6/uL 3.60-5.00 [facility] Serum or plasma albumin/glob ulin mass ratioOrdered By: Declan Marina on 09-06-2022 Albumin/Globulin [Mass ratio] 1.1 {ratio} [facility] Serum or plasma anion gap de terminationOrdered By: Declan Marina on 09-06-2022 Anion gap [Moles/Vol] 12.0 mmol/L 6.0-15.0 [facility] Sodium [Moles/volume] in Ser um or PlasmaOrdered By: Declan Marina on 09-06-2022 Sodium [Moles/Vol] 133 mmol/L 136-145 [facility] Specific gravity Auto test s trip (U) [Rel density]Ordered By: Declan Marina on 09-06-2022 Specific gravity (U) [Rel density] 1.012 1.001-1.030 [facility] Squamous epithelial cells de tection in urine sediment by light microscopyOrdered By: Declan Marina on 09-06-2022 Epithelial cells.squamous LM Ql (Urine sed) 3-4 [HPF] 0-2 [facility] Urea nitrogen [Mass/volume] in Serum or PlasmaOrdered By: Declan Marina on 09-06-2022 Urea nitrogen [Mass/Vol] 8 mg/dL 7 [facility] Urine bacteria detection by automated methodOrdered By: Declan Marina on 09-06-2022 Bacteria Auto Ql (U) 1+ None Seen [facility] Urine clarity by refractomet ry automatedOrdered By: Declan Marina on 09-06-2022 Clarity Refractometry automated (U) Clear Clear [facility] Urine glucose measurement by automated test strip (mass/volume)Ordered By: Declan Marina on 09-06-2022 Glucose Auto test strip (U) [Mass/Vol] Normal mg/dL Normal [facility] Urine hemoglobin detection b y automated test stripOrdered By: Declan Marina on 09-06-2022 Hemoglobin Auto test strip Ql (U) 2+ Negative [facility] Urine leukocyte esterase det ection by automated test stripOrdered By: Declan Marina on 09-06-2022 Leukocyte esterase Auto test strip Ql (U) 1+ Negative [facility] Urobilinogen Auto test strip (U) [Mass/Vol]Ordered By: Declan Marina on 09-06-2022 Urobilinogen (U) [Mass/Vol] Normal mg/dL Normal [facility] WBC Auto (Bld) [#/Vol]Ordere d By: Declan Marina on 09-06-2022 WBC (Bld) [#/Vol] 9.5 10*3/uL 3.8-11.6 [facility] pH Auto test strip (U)Ordere d By: Declan Marina on 09-06-2022 pH (U) 8.5 [pH] 5.0-9.0 [facility] Provider Letteron 09-04-2022 Provider Letter Normal [facility] Ambulatory Visit Summaryon 0 08-28-2022 Ambulatory Visit Summary Normal [facility] Family Medicine Office/Clini c Noteon 08-28-2022 Family Medicine Office/Clinic Note Normal [facility] Comment on above: Result Comment: Elec tronically Signed By: Lorie Morocho MD\.br\Date and Time Signed: 08/28/22 10:20 EDT Discharge Instructionson Discharge Instructions [id number]#[id number]: 127 Normal [facility] Discharge Note-Nursingon Discharge Note-Nursing Normal [facility] Patient Education - Texton 0 08-18-2022 Patient Education - Text Normal [facility] Progress Note-Physicianon Progress Note-Physician Normal [facility] Comment on above: Result Comment: Elec tronically Signed By: Luciana Qureshi RN\.br\Date and Time Signed: 08/18/22 09:11 EDT\.br\Electronically Co-Signed By: Jonathan Patel DO\.br\Date and Time Co-Signed: 08/18/22 09:41 EDT Valuables Checkliston 2022 Valuables Checklist [id number] :127 Normal [facility] Acetamnphn Lvlon 08-17-2022 Acetaminophen [Mass/Vol] ug/mL Low 15-30 [facility] Comment on above: Performed By: #### 1 [id number], 0614974, 5485448, 4984860, 4437479, 5412436, 89000847, 9756071, 4232140, 94940232 ####[facility] [address] [place] [address] Ammoniaon 08-17-2022 Ammonia (P) [Moles/Vol] 43 mcmol High 11-35 [facility] Comment on above: Performed By: #### 2 010512, 1320266, 3434877, 24978963, 0455854, 7153156, 19919011, 04039314 ####[facility] [address] [place] [address] Ammonia (P) [Moles/Vol] 40 mcmol High 11-35 [facility] Comment on above: Performed By: #### 1 6700482, 5576286, 0337656, 6599739, 1196170, 0550665, 05152795, 3202755, 7435494, 26080543 ####[facility] [address] [place] [address] Auto Diffon 08-17-2022 Basophils/100 WBC (Bld) 0.3 % Normal 0.0-2.0 [facility] Comment on above: Order Comment: Order Added by Discern Expert. Performed By: #### 2 993756, 0673194, 8654489, 86566253, 3411716, 2408082, 77567781, 95444085 ####[address] [place] [address] Basophils/Leukocytes Auto (Bld) [Pure # fraction] 0.0 E9/L Normal 0.0-0.2 [facility] Comment on above: Order Comment: Order Added by Discern Expert. Performed By: #### 2 464535, 7007652, 8104491, 04532545, 6428474, 9536407, 57574074, 35072236 ####[address] [address] Eosinophils/100 WBC (Bld) 0.4 % Normal 0.0-8.0 [facility] Comment on above: Order Comment: Order Added by Discern Expert. Performed By: #### 2 411406, 7074179, 2657759, 02976724, 6904958, 1321910, 07147687, 97968185 ####[address] [place] [address] Eosinophils/Leukocyte s Auto (Bld) [Pure # fraction] 0.0 E9/L Normal 0.0-0.5 [facility] Comment on above: Order Comment: Order Added by Discern Expert. Performed By: #### 2 597805, 4984697, 3656346, 77348878, 7142190, 3484244, 54974558, 23622013 ####[address] [place] [address] Lymphocytes/100 WBC (Bld) 33.9 % Normal 14.0-50.0 [facility] Comment on above: Order Comment: Order Added by Discern Expert. Performed By: #### 2 485104, 8618928, 1368957, 85603690, 8101280, 8560004, 33632156, 68376945 ####[address] [address] Lymphocytes/Leukocyte s Auto (Bld) [Pure # fraction] 2.3 E9/L Normal 1.0-4.0 [facility] Comment on above: Order Comment: Order Added by Discern Expert. Performed By: #### 2 018597, 6692867, 3177696, 30309400, 3414732, 3086210, 13415272, 66634791 ####[address] [address] Monocytes/100 WBC (Bld) 7.0 % Normal 4.0-14.0 [facility] Comment on above: Order Comment: Order Added by Discern Expert. Performed By: #### 2 078540, 0702276, 4061787, 95077942, 7011755, 1262780, 19164126, 53851449 ####[address] [address] Monocytes/Leukocytes Auto (Bld) [Pure # fraction] 0.5 E9/L Normal 0.2-1.0 [facility] Comment on above: Order Comment: Order Added by Discern Expert. Performed By: #### 2 900157, 4666713, 0667261, 55904898, 8348109, 8405546, 57811662, 18423368 ####[address] [address] Neutrophils/100 WBC (Bld) 58.4 % Normal 36.0-75.0 [facility] Comment on above: Order Comment: Order Added by Discern Expert. Performed By: #### 2 567940, 7067622, 7094550, 60309561, 7521508, 4928438, 25189430, 24401358 ####[address] [place] [address] Neutrophils/Leukocyte s Auto (Bld) [Pure # fraction] 4.0 E9/L Normal 2.0-7.5 [facility] Comment on above: Order Comment: Order Added by Discern Expert. Performed By: #### 2 363722, 4628092, 2028044, 87946392, 5440353, 4038527, 24052504, 73258169 ####[address] [place] [address] Basophils/100 WBC (Bld) 0.9 % Normal 0.0-2.0 [facility] Comment on above: Order Comment: Order Added by Discern Expert. Performed By: #### 1 0445091, 8543268, 7191526, 2007750, 1743326, 3727408, 18103243, 0946953, 1332045, 01003357 ####[address] [place] [address] Basophils/Leukocytes Auto (Bld) [Pure # fraction] 0.1 E9/L Normal 0.0-0.2 [facility] Comment on above: Order Comment: Order Added by Discern Expert. Performed By: #### 1 4228754, 3401778, 5907738, 0304916, 3913574, 5671526, 85264619, 7789368, 3500371, 79103122 ####[address] [place] [address] Eosinophils/100 WBC (Bld) 1.1 % Normal 0.0-8.0 [facility] Comment on above: Order Comment: Order Added by Discern Expert. Performed By: #### 1 9206853, 7756920, 3215751, 3442541, 6040242, 9897878, 13820134, 0691393, 7942956, 53769734 ####[address] [place] [address] Eosinophils/Leukocyte s Auto (Bld) [Pure # fraction] 0.1 E9/L Normal 0.0-0.5 [facility] Comment on above: Order Comment: Order Added by Discern Expert. Performed By: #### 1 6703833, 0127929, 2858283, 9473084, 3743748, 1317439, 68300356, 7394159, 2979358, 68925905 ####[facility] [address] [place] [address] Lymphocytes/100 WBC (Bld) 41.5 % Normal 14.0-50.0 [facility] Comment on above: Order Comment: Order Added by Discern Expert. Performed By: #### 1 6038988, 4689867, 8344998, 2465379, 9158954, 3524461, 78898083, 4024244, 0540123, 80402142 ####[address] [place] [address] Lymphocytes/Leukocyte s Auto (Bld) [Pure # fraction] 5.2 E9/L High 1.0-4.0 [facility] Comment on above: Order Comment: Order Added by Discern Expert. Performed By: #### 1 3162030, 7153485, 5690563, 4693194, 7708996, 5094935, 51760309, 1167890, 4425749, 82480551 ####[address] [place] [address] Monocytes/100 WBC (Bld) 10.0 % Normal 4.0-14.0 [facility] Comment on above: Order Comment: Order Added by Discern Expert. Performed By: #### 1 4452094, 8313575, 3782107, 6850130, 1507574, 0865472, 09775199, 4520122, 6890541, 16404919 ####[address] [place] [address] Monocytes/Leukocytes Auto (Bld) [Pure # fraction] 1.3 E9/L High 0.2-1.0 [facility] Comment on above: Order Comment: Order Added by Radha Expert. Performed By: #### 1 1880877, 9315182, 6216163, 4465324, 0160686, 6779936, 06522186, 8923521, 2433067, 43266059 ####[facility] [address] [place] [address] Neutrophils/100 WBC (Bld) 46.5 % Normal 36.0-75.0 [facility] Comment on above: Order Comment: Order Added by Discern Expert. Performed By: #### 1 0773651, 4417136, 4513893, 0591638, 4612673, 5931243, 59210365, 0044825, 5117949, 99126159 ####[facility] [address] [place] [address] Neutrophils/Leukocyte s Auto (Bld) [Pure # fraction] 5.8 E9/L Normal 2.0-7.5 [facility] Comment on above: Order Comment: Order Added by Discern Expert. Performed By: #### 1 8847788, 8368976, 9532125, 3203101, 8800181, 9722926, 79708236, 9889305, 1336783, 43251698 ####[facility] [address] [place] [address] B hCG Qualon 08-17-2022 Beta hCG Ql Negative Normal [facility] Comment on above: Performed By: #### 1 3829388, 2081072, 3492642, 2919219, 3600699, 8526826, 44447570, 7113072, 2285076, 24048162 ####[facility] [address] [place] [address] BMPon 08-17-2022 Anion gap [Moles/Vol] 12 mmol/L Normal 6-16 [facility] Comment on above: Performed By: #### 2 881795, 3601868, 8980904, 31852702, 8248508, 3997196, 38654382, 46395103 ####[facility] [address] [place] [address] Calcium [Mass/Vol] 8.6 mg/dL Low 8.9-11.1 [facility] Comment on above: Performed By: #### 2 655915, 8715842, 7026083, 77958524, 1632899, 9617326, 35271821, 09802142 ####[facility] [address] [place] [address] Chloride [Moles/Vol] 106 mmol/L Normal 101-111 [facility] Comment on above: Performed By: #### 2 466027, 5095714, 2473308, 30849523, 3978545, 5681730, 94698418, 89101049 ####[facility] [address] [place] [address] CO2 [Moles/Vol] 22 mmol/L Normal 21-31 [facility] Comment on above: Performed By: #### 2 061517, 2834659, 0605017, 16840245, 3139034, 1651139, 68548334, 43313726 ####[facility] [address] [place] [address] Creatinine [Mass/Vol] 0.7 mg/dL Normal 0.5-1.3 [facility] Comment on above: Performed By: #### 2 828192, 5528276, 6985460, 85178952, 4391888, 9442143, 86647038, 28580897 ####[facility] [address] [place] [address] Glucose [Mass/Vol] 90 mg/dL Normal 55-199 [facility] Comment on above: Result Comment: If t his glucose result represents a fasting glucose, interpretation should refer to the following reference range: 55-99 mg/dL Performed By: #### 2 967962, 9539598, 4197427, 82158970, 9141095, 8546432, 28597322, 17415591 ####[facility] [address] [place] [address] Potassium [Moles/Vol] 4.2 mmol/L Normal 3.5-5.3 [facility] Comment on above: Performed By: #### 2 236538, 5060800, 1227999, 10053642, 6974497, 0372859, 28467686, 10077729 ####[facility] [address] [place] [address] Sodium [Moles/Vol] 136 mmol/L Normal 135-145 [facility] Comment on above: Performed By: #### 2 118570, 6878250, 1999797, 92886355, 1945648, 6346762, 23198193, 09976750 ####[facility] [address] [place] [address] Urea nitrogen [Mass/Vol] 18 mg/dL Normal 5-21 [facility] Comment on above: Performed By: #### 2 112794, 0878896, 4910625, 22998490, 0866818, 3228419, 27436951, 77399177 ####[facility] [address] [place] [address] Urea nitrogen/Creatinine [Mass ratio] 26 No Units High 10-20 [facility] Comment on above: Performed By: #### 2 603736, 7189349, 1027420, 55485498, 4836654, 8442568, 83119920, 85803105 ####[facility] [address] [place] [address] Creatinine [Mass/Vol] 1.1 mg/dL Normal 0.5-1.3 [facility] Comment on above: Performed By: #### 1 6913850, 1119571, 5896325, 0773881, 1893032, 6366457, 59484791, 4526857, 4177318, 45764439 ####[facility] [address] [place] [address] Urea nitrogen [Mass/Vol] 27 mg/dL High 5-21 [facility] Comment on above: Performed By: #### 1 2639189, 8297440, 7892400, 4781915, 5892546, 6145794, 76810823, 3890821, 4049673, 27321757 ####[facility] [address] [place] [address] Urea nitrogen/Creatinine [Mass ratio] 24 No Units High 10-20 [facility] Comment on above: Performed By: #### 1 4218584, 5858856, 7472188, 3563852, 7761840, 2064780, 28956771, 2575568, 0784728, 20213836 ####[facility] [address] [place] [address] Anion gap [Moles/Vol] 15 mmol/L Normal 6-16 [facility] Comment on above: Performed By: #### 1 8889487, 9816790, 4582449, 8802191, 5906426, 9474091, 02264819, 2457524, 5067062, 24151922 ####[facility] [address] [place] [address] Calcium [Mass/Vol] 9.2 mg/dL Normal 8.9-11.1 [facility] Comment on above: Performed By: #### 1 5281398, 4480136, 4246697, 0155757, 9337423, 7044873, 55786923, 8602216, 8847956, 06681188 ####[facility] [address] [place] [address] Chloride [Moles/Vol] 103 mmol/L Normal 101-111 [facility] Comment on above: Performed By: #### 1 3277284, 7062084, 4849064, 9046085, 9015621, 8962062, 54472350, 6539657, 9265678, 91326834 ####[facility] [address] [place] [address] CO2 [Moles/Vol] 22 mmol/L Normal 21-31 [facility] Comment on above: Performed By: #### 1 4902779, 1437554, 3628974, 3443336, 4656611, 3960154, 76612731, 7426055, 9884451, 68760867 ####[facility] [address] [place] [address] Glucose [Mass/Vol] 64 mg/dL Normal 55-199 [facility] Comment on above: Result Comment: If t his glucose result represents a fasting glucose, interpretation should refer to the following reference range: 55-99 mg/dL Performed By: #### 1 2840547, 0092320, 0066172, 1277212, 5820147, 5985256, 75907101, 6125213, 1261797, 53821109 ####[facility] [address] [place] [address] Potassium [Moles/Vol] 3.7 mmol/L Normal 3.5-5.3 [facility] Comment on above: Performed By: #### 1 2563072, 4635082, 4915302, 1235676, 9025316, 5778756, 16688445, 0242842, 2352444, 05317935 ####[facility] [address] [place] [address] Sodium [Moles/Vol] 136 mmol/L Normal 135-145 [facility] Comment on above: Performed By: #### 1 7089125, 7047863, 6809287, 6676491, 5808303, 2765479, 55044710, 8926780, 5463156, 51534791 ####[facility] [address] [place] [address] CBC w/ Auto Diffon 3 Erythrocyte distribution width (RBC) [Ratio] 14.0 % Normal 10.9-14.2 [facility] Comment on above: Performed By: #### 2 382959, 2490784, 5405016, 78074561, 3405177, 8284866, 70242798, 21776000 ####[facility] [address] [place] [address] Hematocrit (Bld) [Volume fraction] 39.1 % Normal 34.0-46.0 [facility] Comment on above: Performed By: #### 2 860989, 0467101, 2729375, 85418909, 2986080, 8154353, 72186062, 61389639 ####[facility] [address] [place] [address] Hemoglobin (Bld) [Mass/Vol] 13.3 g/dL Normal 12.0-16.0 [facility] Comment on above: Performed By: #### 2 311909, 8639797, 1549762, 41055203, 1011021, 3589999, 46877023, 86754732 ####[facility] [address] [place] [address] MCH (RBC) [Entitic mass] 31.4 pg Normal 27.0-34.0 [facility] Comment on above: Performed By: #### 2 492346, 2229752, 9122284, 00313652, 5906266, 1319853, 43248997, 97935099 ####[facility] [address] [place] [address] MCHC (RBC) [Mass/Vol] 34.2 g/dL Normal 31.4-36.0 [facility] Comment on above: Performed By: #### 2 057957, 0523789, 1252886, 71388170, 3990696, 4317595, 64734465, 71909089 ####[facility] [address] [place] [address] MCV (RBC) [Entitic vol] 91.9 fL Normal 80.0-100.0 [facility] Comment on above: Performed By: #### 2 315221, 7138029, 5385468, 53269666, 0767947, 3719729, 87558507, 30374673 ####[facility] [address] [place] [address] Platelet mean volume (Bld) [Entitic vol] 8.2 fL Normal 6.4-10.8 [facility] Comment on above: Performed By: #### 2 440944, 1714789, 3825912, 12599954, 0485119, 5317714, 05399634, 72833095 ####[facility] [address] [place] [address] Platelets (Bld) [#/Vol] 181.0 E9/L Normal 150.0-500.0 [facility] Comment on above: Performed By: #### 2 007219, 2304858, 5573026, 53009657, 3177406, 3651402, 37143850, 72346885 ####[facility] [address] [place] [address] RBC (Bld) [#/Vol] 4.2 E12/L Low 4.3-5.9 [facility] Comment on above: Performed By: #### 2 559820, 9190438, 9081167, 51808023, 6878302, 1650251, 63768877, 65166630 ####[address] [place] [address] WBC corrected for nucl RBC Auto (Bld) [#/Vol] 6.9 E9/L Normal 4.0-11.0 [facility] Comment on above: Performed By: #### 2 108496, 8059483, 7227258, 99771986, 1478498, 1150310, 06113608, 79704804 ####[address] [place] [address] Erythrocyte distribution width (RBC) [Ratio] 13.6 % Normal 10.9-14.2 [facility] Comment on above: Performed By: #### 1 0177112, 6275400, 1465286, 7995417, 9596207, 5872472, 05257366, 2338490, 2861563, 75637879 ####[address] [place] [address] Hematocrit (Bld) [Volume fraction] 39.8 % Normal 34.0-46.0 [facility] Comment on above: Performed By: #### 1 5251433, 2880419, 0082140, 8242778, 8821637, 0489507, 50143168, 8252445, 7247154, 36323593 ####[address] [place] [address] Hemoglobin (Bld) [Mass/Vol] 13.6 g/dL Normal 12.0-16.0 [facility] Comment on above: Performed By: #### 1 0274788, 9583720, 1053220, 0474643, 5412513, 9164781, 73207124, 7407349, 4511142, 10920954 ####[facility] [address] [place] [address] MCH (RBC) [Entitic mass] 31.5 pg Normal 27.0-34.0 [facility] Comment on above: Performed By: #### 1 3300922, 3437016, 3907166, 2596467, 7505981, 9435060, 04686681, 9382658, 7256016, 95083202 ####[facility] [address] [place] [address] MCHC (RBC) [Mass/Vol] 34.1 g/dL Normal 31.4-36.0 [facility] Comment on above: Performed By: #### 1 4593176, 6466869, 5409644, 5513016, 6466049, 1258001, 16025621, 7807597, 4318993, 90056910 ####[address] [address] MCV (RBC) [Entitic vol] 92.3 fL Normal 80.0-100.0 [facility] Comment on above: Performed By: #### 1 4143368, 0868741, 0924671, 7639444, 8462196, 2286746, 35919257, 5460963, 9510990, 01367572 ####[facility] [address] [place] [address] Platelet mean volume (Bld) [Entitic vol] 8.7 fL Normal 6.4-10.8 [facility] Comment on above: Performed By: #### 1 9661883, 6056932, 8338347, 3405152, 0169375, 3694153, 41417615, 4919854, 5073159, 39785660 ####[address] [address] Platelets (Bld) [#/Vol] 243.0 E9/L Normal 150.0-500.0 [facility] Comment on above: Performed By: #### 1 2741125, 7268177, 1016429, 3576945, 6915525, 0770071, 63396832, 1363629, 1655169, 39440474 ####[facility] [address] [place] [address] RBC (Bld) [#/Vol] 4.3 E12/L Normal 4.3-5.9 [facility] Comment on above: Performed By: #### 1 5988491, 5728979, 5694823, 3336085, 7958991, 4750146, 41377080, 3507101, 9768488, 15078092 ####[facility] [address] [place] [address] WBC corrected for nucl RBC Auto (Bld) [#/Vol] 12.6 E9/L High 4.0-11.0 [facility] Comment on above: Result Comment: Slid e reviewed by HANNAH. Performed By: #### 1 7923795, 1450119, 0285696, 3127821, 8604727, 0211918, 85152321, 3199442, 4385113, 43578714 ####[facility] [address] [place] [address] CHEMISTRYOrdered By: SYSTEM SYSTEM on 08-17-2022 Ammonia (P) [Moles/Vol] 43 umol High 11 - 35 mcmol [facility] Anion gap [Moles/Vol] 12 mmol/L Normal 6 - 16 mEq/L [facility] Calcium [Mass/Vol] 8.6 mg/dL Low 8.9 - 11. 1 mg/dL [facility] Chloride [Moles/Vol] 106 mmol/L Normal 101 - 1 11 mmol/L [facility] CO2 [Moles/Vol] 22 mmol/L Normal 21 - 31 mmol/L [facility] Cobalamin (Vitamin B12) [Mass/Vol] 384 pg/mL Normal 50 - 1500 pg/mL [facility] Creatinine [Mass/Vol] 0.7 mg/dL Normal 0.5 - 1.3 mg/dL [facility] GFR/1.73 sq M.predicted among non-blacks MDRD (S/P/Bld) [Vol rate/Area] 119 mL/min/1.73 m2 Normal >=59mL/min/1 .73 m2 [facility] Chem S Glucose [Mass/Vol] 90 mg/dL Normal 55 - 199 mg/dL [facility] Potassium [Moles/Vol] 4.2 mmol/L Normal 3.5 - 5.3 mmol/L [facility] Sodium [Moles/Vol] 136 mmol/L Normal 135 - 145 mmol/L [facility] TSH Qn 1.49 m[IU]/L Normal 0.34 - 5.60 mcIU/mL [facility] Urea nitrogen [Mass/Vol] 18 mg/dL Normal 5 - 21 mg/dL [facility] Urea nitrogen/Creatinine [Mass ratio] 26 mg/mg High 10 - 20 [facility] Amphetamines Screen method >1000 ng/mL Ql (U) Positive 2 *ABN* (08/17/22 3:01 AM) Invalid Interpretation Code Negative [facility] Comment on above: Result Comment: Crit ical Result verified by repeat analysis\Critical Result UD_AMPH:POS Called to VIN CASAREZ AT ER by MONICA EARL And Read Back For Confirmation at: 08/17/2022 03:58:19 Barbiturates Screen Ql (U) Negative (08/17/22 3:01 AM) Normal Negative [facility] Benzodiazepines Ql (U) Negative (08/17/22 3:01 AM) Normal Negative [facility] Cocaine Ql (U) Positive 1 *ABN* (08/17/22 3:01 AM) Invalid Interpretation Code Negative [facility] Comment on above: Result Comment: Crit ical Result verified by repeat analysis\Critical Result UD_COCM:POS Called to VIN CASAREZ AT ER by MONICA EARL And Read Back For Confirmation at: 08/17/2022 03:58:19 Opiates Screen Ql (U) Negative (08/17/22 3:01 AM) Normal Negative [facility] Phencyclidine Screen method >25 ng/mL Ql (U) Negative (08/17/22 3:01 AM) Normal Negative [facility] Tetrahydrocannabinol Screen method >50 ng/mL Ql (U) Negative (08/17/22 3:01 AM) Normal Negative [facility] Acetaminophen [Mass/Vol] microgram/mL Low 15 - 30 mcg/mL [facility] Albumin [Mass/Vol] 4.2 g/dL Normal 3.3 - 5.0 gm/dL [facility] Albumin/Globulin [Mass ratio] 1.1 {ratio} Normal 1.1 - 2.2 [facility] ALP [Catalytic activity/Vol] 83 [iU]/d Normal 21 - 98 Int._Unit/L [facility] ALT No additional P-5'-P [Catalytic activity/Vol] 139 [iU]/d High 6 - 46 Int._Unit/L [facility] Ammonia (P) [Moles/Vol] 40 umol High 11 - 35 mcmol [facility] Anion gap [Moles/Vol] 15 mmol/L Normal 6 - 16 mEq/L [facility] AST [Catalytic activity/Vol] 146 [iU]/d High 5 - 43 Int._Unit/L [facility] Bilirubin [Mass/Vol] 1.0 mg/dL Normal 0.0 - 1 .1 mg/dL [facility] Bilirubin.direct [Mass/Vol] 0.3 mg/dL Normal 0.1 - 0.4 mg/dL [facility] Bilirubin.indirect [Mass or moles/Vol] 0.7 mg/dL Normal 0.1 - 0.9 mg/dL [facility] Calcium [Mass/Vol] 9.2 mg/dL Normal 8.9 - 11. 1 mg/dL [facility] Chloride [Moles/Vol] 103 mmol/L Normal 101 - 1 11 mmol/L [facility] CO2 [Moles/Vol] 22 mmol/L Normal 21 - 31 mmol/L [facility] Creatinine [Mass/Vol] 1.1 mg/dL Normal 0.5 - 1.3 mg/dL [facility] Ethanol [Mass/Vol] mg/dL Normal <=7mg/dL [facility] GFR/1.73 sq M.predicted among non-blacks MDRD (S/P/Bld) [Vol rate/Area] 69 mL/min/1.73 m2 Normal >=59mL/min/1 .73 m2 [facility] [place] S Globulin (S) [Mass/Vol] 3.7 g/dL Normal 1.4 - 4.0 gm/dL [facility] Glucose [Mass/Vol] 64 mg/dL Normal 55 - 199 mg/dL [facility] Potassium [Moles/Vol] 3.7 mmol/L Normal 3.5 - 5.3 mmol/L [facility] Protein [Mass/Vol] 7.9 g/dL High 6.0 - 7.8 gm/dL [facility] Salicylates [Mass/Vol] mg/dL Low 6 - 29 mg/dL [facility] Sodium [Moles/Vol] 136 mmol/L Normal 135 - 145 mmol/L [facility] Troponin I.cardiac [Mass/Vol] 8.00 pg/mL Low 10.10 - 27.10 pg/mL [facility] Urea nitrogen [Mass/Vol] 27 mg/dL High 5 - 21 mg/dL [facility] Urea nitrogen/Creatinine [Mass ratio] 24 mg/mg High 10 - [address] [facility] [address] Head or Brain w/o Contras ton 08-17-2022 CT Head or Brain w/o Contrast Normal [facility] Consent for Treatmenton Consent for Treatment [id number] :127 Normal [facility] Consultation Noteon 08-18-19 Consultation Note Normal [facility] Comment on above: Result Comment: Elec tronically Signed By: Awa BAUTISTA, Bekah Chatman\.br\Date and Time Signed: 08/17/22 10:14 EDT\.br\Electronically Co-Signed By: Jonathan Patel DO\.br\Date and Time Co-Signed: 08/17/22 11:06 EDT ED Clinical Summaryon 2022 ED Clinical Summary Normal [facility] ED Note-Physicianon 08-18-19 ED Note-Physician Normal [facility] Comment on above: Result Comment: Elec tronically Signed By: Megan DO, Darren S.\.br\Date and Time Signed: 08/17/22 04:38 EDT ED Patient Education Noteon 08-17-2022 ED Patient Education Note Normal [facility] ED Patient Summaryon 023 ED Patient Summary Normal [facility] Ethanolon 08-17-2022 Ethanol [Mass/Vol] mg/dL Normal <=7 [facility] Comment on above: Performed By: #### 2 [id number] ####[facility] [address] [place] [address] HEMATOLOGYOrdered By: SYSTEM SYSTEM on 08-17-2022 Basophils/100 WBC (Bld) 0.3 % Normal 0.0 - 2.0 % [facility] Basophils/Leukocytes Auto (Bld) [Pure # fraction] 0.0 E9/L Normal 0.0 - 0.2 E9/L [facility] Eosinophils/100 WBC (Bld) 0.4 % Normal 0.0 - 8.0 % [facility] Eosinophils/Leukocyte s Auto (Bld) [Pure # fraction] 0.0 E9/L Normal 0.0 - 0.5 E9/L [facility] Lymphocytes/100 WBC (Bld) 33.9 % Normal 14.0 - 50.0 % [facility] Lymphocytes/Leukocyte s Auto (Bld) [Pure # fraction] 2.3 E9/L Normal 1.0 - 4.0 E9/L [facility] Monocytes/100 WBC (Bld) 7.0 % Normal 4.0 - 14.0 % [facility] Monocytes/Leukocytes Auto (Bld) [Pure # fraction] 0.5 E9/L Normal 0.2 - 1.0 E9/L [facility] Neutrophils/100 WBC (Bld) 58.4 % Normal 36.0 - 75.0 % [facility] Neutrophils/Leukocyte s Auto (Bld) [Pure # fraction] 4.0 E9/L Normal 2.0 - 7.5 E9/L [facility] Basophils/100 WBC (Bld) 0.9 % Normal 0.0 - 2.0 % [facility] Basophils/Leukocytes Auto (Bld) [Pure # fraction] 0.1 E9/L Normal 0.0 - 0.2 E9/L [facility] Eosinophils/100 WBC (Bld) 1.1 % Normal 0.0 - 8.0 % [facility] Eosinophils/Leukocyte s Auto (Bld) [Pure # fraction] 0.1 E9/L Normal 0.0 - 0.5 E9/L [facility] Lymphocytes/100 WBC (Bld) 41.5 % Normal 14.0 - 50.0 % [facility] Lymphocytes/Leukocyte s Auto (Bld) [Pure # fraction] 5.2 E9/L High 1.0 - 4.0 E9/L [facility] Monocytes/100 WBC (Bld) 10.0 % Normal 4.0 - 14.0 % [facility] Monocytes/Leukocytes Auto (Bld) [Pure # fraction] 1.3 E9/L High 0.2 - 1.0 E9/L [facility] Neutrophils/100 WBC (Bld) 46.5 % Normal 36.0 - 75.0 % [facility] Neutrophils/Leukocyte s Auto (Bld) [Pure # fraction] 5.8 E9/L Normal 2.0 - 7.5 E9/L [facility] HEMATOLOGYOrdered By: Marlyn Villa on 08-17-2022 Erythrocyte distribution width (RBC) [Ratio] 14.0 % Normal 10.9 - 14.2 % [facility] Hematocrit (Bld) [Volume fraction] 39.1 % Normal 34.0 - 46.0 % [facility] Hemoglobin (Bld) [Mass/Vol] 13.3 g/dL Normal 12.0 - 16.0 gm/dL [facility] MCH (RBC) [Entitic mass] 31.4 pg Normal 27.0 - 34.0 pg [facility] MCHC (RBC) [Mass/Vol] 34.2 g/dL Normal 31.4 - 36.0 gm/dL [facility] MCV (RBC) [Entitic vol] 91.9 fL Normal 80.0 - 100.0 fL [facility] Platelet mean volume (Bld) [Entitic vol] 8.2 fL Normal 6.4 - 10.8 fL [facility] Platelets (Bld) [#/Vol] 181.0 E9/L Normal 150.0 - 500.0 E9/L [facility] RBC (Bld) [#/Vol] 4.2 E12/L Low 4.3 - 5.9 E12/L [facility] Sed Rate Automated 7 mm/h Normal 0 - 34 mm/hr [facility] WBC corrected for nucl RBC Auto (Bld) [#/Vol] 6.9 E9/L Normal 4.0 - 11.0 E9/L [facility] HEMATOLOGYOrdered By: Too Earl on 08-17-2022 Erythrocyte distribution width (RBC) [Ratio] 13.6 % Normal 10.9 - 14.2 % [facility] Hematocrit (Bld) [Volume fraction] 39.8 % Normal 34.0 - 46.0 % [facility] Hemoglobin (Bld) [Mass/Vol] 13.6 g/dL Normal 12.0 - 16.0 gm/dL [facility] MCH (RBC) [Entitic mass] 31.5 pg Normal 27.0 - 34.0 pg [facility] MCHC (RBC) [Mass/Vol] 34.1 g/dL Normal 31.4 - 36.0 gm/dL [facility] MCV (RBC) [Entitic vol] 92.3 fL Normal 80.0 - 100.0 fL [facility] Platelet mean volume (Bld) [Entitic vol] 8.7 fL Normal 6.4 - 10.8 fL [facility] Platelets (Bld) [#/Vol] 243.0 E9/L Normal 150.0 - 500.0 E9/L [facility] RBC (Bld) [#/Vol] 4.3 E12/L Normal 4.3 - 5.9 E12/L [facility] WBC corrected for nucl RBC Auto (Bld) [#/Vol] 12.6 E9/L High 4.0 - 11.0 E9/L [facility] Comment on above: Result Comment: Slid e reviewed by HANNAH. Hep Func Panelon 08-17-2022 Albumin [Mass/Vol] 4.2 g/dL Normal 3.3-5.0 [facility] Comment on above: Performed By: #### 1 0567659, 1986294, 0184614, 9800742, 4283528, 8054275, 46225151, 8236910, 2479520, 33388980 ####[address] [place] [address] Albumin/Globulin (S) [Mass conc ratio] 1.1 Normal 1.1-2.2 [facility] Comment on above: Performed By: #### 1 6155896, 8067510, 3088042, 5776522, 4507133, 4259665, 67351735, 9132581, 2912247, 19319939 ####[address] [place] [address] ALP [Catalytic activity/Vol] 83 Int._Unit/L Normal 21-98 [facility] Comment on above: Performed By: #### 1 2195886, 9656426, 3359545, 2067858, 9579321, 5520354, 58782358, 3299392, 2677380, 28242214 ####[address] [place] [address] ALT No additional P-5'-P [Catalytic activity/Vol] 139 Int._Unit/L High 6-46 [facility] Comment on above: Performed By: #### 1 8829686, 2439370, 5998678, 3998577, 2504758, 9453069, 99155225, 3682836, 7303276, 73634463 ####[address] [place] [address] AST [Catalytic activity/Vol] 146 Int._Unit/L High 5-43 [facility] Comment on above: Performed By: #### 1 8974909, 4520653, 0626169, 4115876, 3385961, 3281473, 32244707, 3616924, 8765403, 59454682 ####[address] [place] [address] Bilirubin [Mass/Vol] 1.0 mg/dL Normal 0.0-1.1 [facility] Comment on above: Performed By: #### 1 8634171, 8036702, 1170298, 1415179, 9459014, 1512624, 76162521, 4117846, 2404134, 22403663 ####[facility] [address] [place] [address] Bilirubin.direct [Mass/Vol] 0.3 mg/dL Normal 0.1-0.4 [facility] Comment on above: Performed By: #### 1 1840620, 2329053, 6326262, 5570339, 1642007, 4399594, 36256056, 4959280, 7685374, 97800507 ####[facility] [address] [place] [address] Bilirubin.indirect [Mass or moles/Vol] 0.7 mg/dL Normal 0.1-0.9 [facility] Comment on above: Performed By: #### 1 4804123, 8359457, 7445449, 0853790, 6520023, 3904055, 13732454, 6577653, 4199213, 40470456 ####[facility] [address] [place] [address] Globulin (S) [Mass/Vol] 3.7 g/dL Normal 1.4-4.0 [facility] Comment on above: Performed By: #### 1 2794547, 0519005, 2343649, 6211503, 5956239, 3244982, 50017391, 9644770, 1495985, 27031674 ####[facility] [address] [place] [address] Protein [Mass/Vol] 7.9 g/dL High 6.0-7.8 [facility] Comment on above: Performed By: #### 1 4804734, 9781447, 6186619, 5319607, 8347856, 1817171, 88003526, 5873373, 2047643, 00917605 ####[facility] [address] [place] [address] Interdisciplinary Note - Alonso e Manageron 08-17-2022 Interdisciplinary Note - High Climber Normal [facility] Comment on above: Result Comment: Elec tronically Signed By: Jere RN, Ernestina\.br\Date and Time Signed: 08/17/22 11:06 EDT Interdisciplinary Note - Soc ial Workeron 08-17-2022 Interdisciplinary Note - Excel Specialist Normal [facility] Pre-Arrival Noteon Pre-Arrival Note Normal [facility] RAD - Preliminary Cat Scan R eporton 08-17-2022 RAD - Preliminary Cat Scan Report [id number]: 127 Normal [facility] SEROLOGYOrdered By: Monica Earl on 08-17-2022 Beta hCG Ql Negative (08/17/22 12:29 AM) Normal [facility] Sero Salicylateon 08-17-2022 Salicylates [Mass/Vol] mg/dL Low 6-29 [facility] Comment on above: Performed By: #### 1 5006735, 0172830, 0854909, 2664874, 8814318, 2841957, 00906048, 1237990, 9596769, 75804531 ####[facility] [address] [place] [address] Sed Rate Automatedon 023 Sed Rate Automated 7 mm/hr Normal 0-34 [facility] Comment on above: Performed By: #### 2 654863, 5389814, 5290249, 84926905, 5370212, 4843597, 77722914, 55634351 ####[facility] [address] [place] [address] TSH With T4fr Reflexon 08-17 TSH Qn 1.49 m[IU]/L Normal 0.34-5.60 [facility] Comment on above: Performed By: #### 2 799816, 2640015, 9089655, 05019726, 7150677, 9510398, 94145011, 97798002 ####[facility] [address] [place] [address] Troponin 0 Hr.on 08-17-2022 Troponin I.cardiac [Mass/Vol] 8.00 pg/mL Low 10.10-27.10 [facility] Comment on above: Order Comment: per p t combative/uncooperative per Dr. Guzman waiting for meds to be administered before trying iv/bloodwork. ER to notify me when ready...[facility] 08/16/2022 23:46:16 EDT Result Comment: The 95% CI (Confidence Interval) PPV (Positive Predictive Value) for myocardial infarction in females is 38 pg/mL, in males 51 pg/mL. The results should be used in conjunction with clinical conditions of myocardial infarction.(Access High Sensitivity Troponin I Instructions For Use, [employer], September 2017) Performed By: #### 1 5310906, 5797190, 2340450, 1312317, 3936043, 1951843, 88735867, 5833222, 0332317, 40351361 ####[facility] [address] [place] [address] U Drug Screenon 08-17-2022 Amphetamines Screen method >1000 ng/mL Ql (U) Positive Abnormal Negative [facility] Comment on above: Result Comment: Crit ical Result verified by repeat analysis\Critical Result UD_AMPH:POS Called to VIN CASAREZ AT ER by MONICA EARL And Read Back For Confirmation at: 08/17/2022 03:58:19Negative Cutoff: <1000 ng/mL Performed By: #### 2 734290 ####[facility] [address] [place] [address] Cocaine Ql (U) Positive Abnormal Negative [facility] Comment on above: Result Comment: Crit ical Result verified by repeat analysis\Critical Result UD_COCM:POS Called to VIN CASAREZ AT ER by MONICA EARL And Read Back For Confirmation at: 08/17/2022 03:58:19Negative Cutoff: <300 ng/mL Performed By: #### 2 808895 ####[facility] [address] [place] [address] Barbiturates Screen Ql (U) Negative Normal Negative [facility] Comment on above: Result Comment: Nega tive Cutoff: <200 ng/mL Performed By: #### 2 819044 ####[facility] [address] [place] [address] Benzodiazepines Ql (U) Negative Normal Negative [facility] Comment on above: Result Comment: Nega tive Cutoff: <200 ng/mL Performed By: #### 2 434374 ####[facility] [address] [place] [address] Opiates Screen Ql (U) Negative Normal Negative [facility] Comment on above: Result Comment: Nega tive Cutoff: <300 ng/mL Performed By: #### 2 453832 ####[address] [address] Phencyclidine Screen method >25 ng/mL Ql (U) Negative Normal Negative [facility] Comment on above: Result Comment: Nega tive Cutoff: <25 ng/mLThese drug screen results are to be used for medical (i.e., treatment) purposes only. Unconfirmed drug screening results must not be used for non-medical purposes (e.g., employment testing, legal testing). Performed By: #### 2 [address]60074 ####[address] [address] Tetrahydrocannabinol Screen method >50 ng/mL Ql (U) Negative Normal Negative [facility] Comment on above: Result Comment: Nega tive Cutoff: <50 ng/mL Performed By: #### 2 566580 ####[address] [place] [address] UA With Cult Reflexon 2022 Bilirubin Ql (U) Negative Normal Negative [facility] Comment on above: Performed By: #### 1 2902352 ####[address] [place] [address] Clarity (U) CLEAR Normal Clear [facility] Comment on above: Performed By: #### 1 3304938 ####[address] [place] [address] Color (U) YELLOW Normal Yellow [facility] Comment on above: Performed By: #### 1 5646531 ####[address] [place] [address] Crystals LM Ql (Urine sed) Present Normal [facility] Comment on above: Performed By: #### 1 6552072 ####[facility] [address] [place] [address] Epithelial cells.squamous LM.HPF (Urine sed) [#/Area] 0-2 Normal 0-2 [facility] Comment on above: Performed By: #### 1 2136182 ####[facility] [address] [place] [address] Glucose Test strip (U) [Mass/Vol] Negative Normal Negative [facility] Comment on above: Performed By: #### 1 7956326 ####[address] [address] Hemoglobin Ql (U) Negative Normal Negative [facility] Comment on above: Performed By: #### 1 9918835 ####[address] [address] Ketones (U) [Mass/Vol] Negative Normal Negative [facility] Comment on above: Performed By: #### 1 9418209 ####[facility] [address] [place] [address] [place].plasma/Lithiu m.RBC (Bld) [Mass ratio] 0-3 Normal 0-3 [facility] Comment on above: Performed By: #### 1 [id number] ####[address] [address] Nitrite Ql (U) Negative Normal Negative [facility] Comment on above: Performed By: #### 1 [id number] ####[facility] [id number] [place] [address] pH (U) 5.5 [pH] Invalid Interpretation Code 5.0-9.0 [facility] Comment on above: Performed By: #### 1 [id number] ####[facility] [id number] [place] [id number] Protein (U) [Mass/Vol] Negative Normal Negative [facility] Comment on above: Performed By: #### 1 [id number] ####[place] [address] Specific gravity (U) [Rel density] 1.020 Invalid Interpretation Code 1.005-1.030 [facility] Comment on above: Performed By: #### 1 [id number] ####[place] [address] Type of Urine collection method Clean Catch Normal [facility] Comment on above: Performed By: #### 1 [id number] ####[place] [id number] Urobilinogen Qn (U) 0.2 {Surinder'U}/dL Normal 0.0-1.0 [facility] Comment on above: Performed By: #### 1 [id number] ####[place] [address] WBC Auto Ql (U) Negative Normal Negative [facility] Comment on above: Performed By: #### 1 [id number] ####[place] [id number] WBC LM.HPF (Urine sed) [#/Area] 0-5 Normal 0-5 [facility] Comment on above: Performed By: #### 1 [id number] ####[place] [id number] URINALYSISOrdered By: Too Earl on 08-17-2022 Bilirubin Ql (U) Negative (08/17/22 3:01 AM) Normal Negative FT UA Auto SS Clarity (U) Clear (08/17/22 3:01 AM) Normal Clear FT UA Auto SS Color (U) Yellow (08/17/22 3:01 AM) Normal Yellow FT UA Auto SS Crystals LM Ql (Urine sed) Present (08/17/22 3:01 AM) Normal FT UA Auto SS Epithelial cells.squamous LM.HPF (Urine sed) [#/Area] 0-2 /HPF Normal 0-2/HPF [facility] UA Aut o SS Glucose Test strip (U) [Mass/Vol] Negative (08/17/22 3:01 AM) Normal Negative [facility] UA Auto SS Hemoglobin Ql (U) Negative (08/17/22 3:01 AM) Normal Negative [facility] UA Auto SS Ketones (U) [Mass/Vol] Negative (08/17/22 3:01 AM) Normal Negative [facility] UA Auto SS [place].plasma/Lithiu m.RBC (Bld) [Mass ratio] 0-3 /HPF Normal 0-3/HPF [facility] UA Auto SS Nitrite Ql (U) Negative (08/17/22 3:01 AM) Normal Negative [facility] UA Auto SS pH (U) 5.5 *NA* (08/17/22 3:01 AM) Invalid Interpretation Code 5.0 - 9.0 [facility] UA Auto SS Protein (U) [Mass/Vol] Negative (08/17/22 3:01 AM) Normal Negative [facility] UA Auto SS Specific gravity (U) [Rel density] 1.020 *NA* (08/17/22 3:01 AM) Invalid Interpretation Code 1.005 - 1.030 FT UA Auto SS UA Spec Desc Clean Catch (08/17/22 3:01 AM) Normal FT U[facility] Auto SS Urobilinogen Qn (U) 0.2397625 {Surinder'U}/dL Normal 0.0 - 1.0 EU/dL [facility] UA Auto SS WBC Auto Ql (U) Negative (08/17/22 3:01 AM) Normal Negative [facility] UA Auto SS WBC LM.HPF (Urine sed) [#/Area] 0-5 /HPF Normal 0-5/HPF [facility] UA Auto SS Vit B12on 08-17-2022 Cobalamin (Vitamin B12) [Mass/Vol] 384 pg/mL Normal 50-1500 [facility] Comment on above: Performed By: #### 2 459704, 6499909, 9505373, 37524215, 4229922, 9042322, 69580380, 20085093 ####[facility] [address] [place] [address] XR Chest Single Viewon 08-17 XR Chest Single View Normal [facility] eGFRon 08-17-2022 GFR/1.73 sq M.predicted among non-blacks MDRD (S/P/Bld) [Vol rate/Area] 119 mL/min/1.73 m2 Normal >=59 [facility] Comment on above: Order Comment: Order added by Discern Expert. Result Comment: Surveillance Sensor Officer justin kidney disease could be indicated at eGFR's of less than 60 mL/min/1.73m2. Kidney failure is indicated at less than 15 mL/min/1.73m2. Performed By: #### 2 391277, 7915515, 5472130, 54458976, 2163454, 6981739, 08426365, 71089450 ####[facility] [address] [place] [address] GFR/1.73 sq M.predicted among non-blacks MDRD (S/P/Bld) [Vol rate/Area] 69 mL/min/1.73 m2 Normal >=59 [facility] Comment on above: Order Comment: Order added by Discern Expert. Result Comment: Surveillance Sensor Officer justin kidney disease could be indicated at eGFR's of less than 60 mL/min/1.73m2. Kidney failure is indicated at less than 15 mL/min/1.73m2. Performed By: #### 1 6500308, 6444162, 4844961, 7842455, 6192235, 3854123, 35355659, 5684741, 7576140, 94245317 ####[facility] [address] [place] [address] ED Note-Physicianon 08-17-19 ED Note-Physician Normal [facility] Comment on above: Result Comment: Elec tronically Signed By: Colin Fernandez PA-C\.br\Date and Time Signed: 08/15/22 20:22 EDT\.br\Electronically Co-Signed By: Isai Hall DO\.br\Date and Time Co-Signed: 08/16/22 06:53 EDT Family Medicine Office/Clini c Noteon 08-16-2022 Family Medicine Office/Clinic Note Normal [facility] Comment on above: Result Comment: Elec tronically Signed By: Amanda BARRIOS CNP\.br\Date and Time Signed: 08/16/22 10:22 EDT\.br\Electronically Co-Signed By: [employer]\.br\Date and Time Co-Signed: 08/13/22 17:08 EDT Auto Diffon 08-15-2022 Basophils/100 WBC (Bld) 1.1 % Normal 0.0-2.0 [facility] Comment on above: Order Comment: Order Added by Discern Expert. Performed By: #### 1 [id number], 3028751, 3022761, 51761278, 0931311, 7259098 ####[address] [place] [address] Basophils/Leukocytes Auto (Bld) [Pure # fraction] 0.1 E9/L Normal 0.0-0.2 [facility] Comment on above: Order Comment: Order Added by Radha Expert. Performed By: #### 1 2257534, 0007921, 6896028, 09833800, 9859986, 8116152 ####[address] [place] [address] Eosinophils/100 WBC (Bld) 1.3 % Normal 0.0-8.0 [facility] Comment on above: Order Comment: Order Added by Radha Expert. Performed By: #### 1 6762401, 3390337, 0558176, 25332458, 9578838, 4815219 ####[address] [place] [address] Eosinophils/Leukocyte s Auto (Bld) [Pure # fraction] 0.1 E9/L Normal 0.0-0.5 [facility] Comment on above: Order Comment: Order Added by Discern Expert. Performed By: #### 1 8888185, 3210586, 6463355, 59619975, 8593564, 9434269 ####[address] [place] [address] Lymphocytes/100 WBC (Bld) 45.6 % Normal 14.0-50.0 [facility] Comment on above: Order Comment: Order Added by Radha Expert. Performed By: #### 1 0571804, 6166617, 2798318, 99530916, 9606246, 0923127 ####[address] [address] Lymphocytes/Leukocyte s Auto (Bld) [Pure # fraction] 3.2 E9/L Normal 1.0-4.0 [facility] Comment on above: Order Comment: Order Added by Discern Expert. Performed By: #### 1 3880124, 0395678, 4140120, 63867987, 8102190, 3668308 ####[address] [place] [address] Monocytes/100 WBC (Bld) 8.4 % Normal 4.0-14.0 [facility] Comment on above: Order Comment: Order Added by Discern Expert. Performed By: #### 1 0209942, 9483140, 4607299, 15979695, 5492850, 2201856 ####[address] [place] [address] Monocytes/Leukocytes Auto (Bld) [Pure # fraction] 0.6 E9/L Normal 0.2-1.0 [facility] Comment on above: Order Comment: Order Added by Discern Expert. Performed By: #### 1 9590290, 6561943, 2431676, 88041672, 2757605, 1869569 ####[address] [place] [address] Neutrophils/100 WBC (Bld) 43.6 % Normal 36.0-75.0 [facility] Comment on above: Order Comment: Order Added by Discern Expert. Performed By: #### 1 2574206, 9567178, 4323479, 58798709, 3789120, 9337366 ####[address] [place] [address] Neutrophils/Leukocyte s Auto (Bld) [Pure # fraction] 3.0 E9/L Normal 2.0-7.5 [facility] Comment on above: Order Comment: Order Added by Radha Expert. Performed By: #### 1 4843565, 0295686, 7927858, 53136009, 6416362, 1973133 ####[address] [place] [address] BMPon 08-15-2022 Anion gap [Moles/Vol] 15 mmol/L Normal 6-16 [facility] Comment on above: Performed By: #### 1 6060833, 1710247, 7496098, 32321057, 3717040, 8110031 ####[facility] [address] [place] [address] Calcium [Mass/Vol] 9.8 mg/dL Normal 8.9-11.1 [facility] Comment on above: Performed By: #### 1 9333465, 7711618, 9237191, 24497314, 5585187, 5445579 ####[facility] [address] [place] [address] Chloride [Moles/Vol] 105 mmol/L Normal 101-111 [facility] Comment on above: Performed By: #### 1 9411759, 4813747, 4250441, 83843202, 0276494, 3999556 ####[facility] [address] [place] [address] CO2 [Moles/Vol] 23 mmol/L Normal 21-31 [facility] Comment on above: Performed By: #### 1 5462778, 8493303, 0658880, 97115845, 1743249, 8751779 ####[facility] [address] [place] [address] Creatinine [Mass/Vol] 1.0 mg/dL Normal 0.5-1.3 [facility] Comment on above: Performed By: #### 1 6812247, 4757037, 8316438, 06910389, 3928489, 8842307 ####[facility] [address] [place] [address] Glucose [Mass/Vol] 113 mg/dL Normal 55-199 [facility] Comment on above: Result Comment: If t his glucose result represents a fasting glucose, interpretation should refer to the following reference range: 55-99 mg/dL Performed By: #### 1 1098608, 5545594, 8792623, 43017476, 9784608, 0894169 ####[facility] [address] [place] [address] Potassium [Moles/Vol] 4.1 mmol/L Normal 3.5-5.3 [facility] Comment on above: Result Comment: 'Spe cimen hemolyzed. Result may be affected. Redraw is recommended.' Performed By: #### 1 7117003, 5540812, 6392964, 89663460, 9599474, 7388639 ####[facility] [id number] Sodium [Moles/Vol] 139 mmol/L Normal 135-145 [facility] Comment on above: Performed By: #### 1 2098885, 3006132, 8810596, 99204203, 4397718, 2759926 ####[facility] [address] [place] [address] Urea nitrogen [Mass/Vol] 18 mg/dL Normal 5-21 [facility] Comment on above: Performed By: #### 1 5457592, 3338977, 5750912, 69103222, 4788654, 0671764 ####[facility] [address] [place] [address] Urea nitrogen/Creatinine [Mass ratio] 18 No Units Normal 10-20 [facility] Comment on above: Performed By: #### 1 9292374, 9157411, 2988928, 11861039, 6553121, 0354774 ####[facility] [address] [place] [address] CBC w/ Auto Diffon 3 Erythrocyte distribution width (RBC) [Ratio] 13.7 % Normal 10.9-14.2 [facility] Comment on above: Order Comment: Clott ed specimen. Redraw ordered. MLB Performed By: #### 1 2248673, 2337291, 9637598, 69991463, 3463693, 9183344 ####[facility] [address] [place] [address] Hematocrit (Bld) [Volume fraction] 38.8 % Normal 34.0-46.0 [facility] Comment on above: Order Comment: Clott ed specimen. Redraw ordered. MLB Performed By: #### 1 5677404, 0707979, 9937402, 07393305, 9969810, 5999284 ####[facility] [address] [place] [address] Hemoglobin (Bld) [Mass/Vol] 13.3 g/dL Normal 12.0-16.0 [facility] Comment on above: Order Comment: Clott ed specimen. Redraw ordered. MLB Performed By: #### 1 4000539, 7701706, 2282102, 65110742, 0535042, 2449081 ####[facility] [address] [place] [address] MCH (RBC) [Entitic mass] 31.6 pg Normal 27.0-34.0 [facility] Comment on above: Order Comment: Clott ed specimen. Redraw ordered. MLB Performed By: #### 1 0679590, 3370952, 4181385, 05110981, 5510457, 3248101 ####[facility] [address] [place] [address] MCHC (RBC) [Mass/Vol] 34.4 g/dL Normal 31.4-36.0 [facility] Comment on above: Order Comment: Clott ed specimen. Redraw ordered. MLB Performed By: #### 1 6336056, 2882689, 3741042, 66177091, 8419662, 8817104 ####[facility] [address] [place] [address] MCV (RBC) [Entitic vol] 91.9 fL Normal 80.0-100.0 [facility] Comment on above: Order Comment: Clott ed specimen. Redraw ordered. MLB Performed By: #### 1 7441783, 4842987, 5510800, 37441683, 4606202, 0922322 ####[facility] [address] [place] [address] Platelet mean volume (Bld) [Entitic vol] 7.9 fL Normal 6.4-10.8 [facility] Comment on above: Order Comment: Clott ed specimen. Redraw ordered. MLB Performed By: #### 1 3817650, 7669941, 5246326, 33382482, 8180269, 0719518 ####[facility] [address] [place] [address] Platelets (Bld) [#/Vol] 202.0 E9/L Normal 150.0-500.0 [facility] Comment on above: Order Comment: Clott ed specimen. Redraw ordered. MLB Performed By: #### 1 5678716, 6543225, 4635330, 96405939, 0614584, 8366774 ####[facility] [address] [place] [address] RBC (Bld) [#/Vol] 4.2 E12/L Low 4.3-5.9 [facility] Comment on above: Order Comment: Clott ed specimen. Redraw ordered. MLB Performed By: #### 1 6812495, 8290834, 6833893, 69791661, 9559106, 6925211 ####[facility] [address] [place] [address] WBC corrected for nucl RBC Auto (Bld) [#/Vol] 6.9 E9/L Normal 4.0-11.0 [facility] Comment on above: Order Comment: Clott ed specimen. Redraw ordered. MLB Performed By: #### 1 7284992, 8678482, 1039866, 38278764, 3619641, 8645465 ####[facility] [address] [place] [address] Consent for Treatmenton Consent for Treatment [id number]: 127 Normal [facility] Discharge Instructionson Discharge Instructions [id number]#1.00C D:127 Normal [facility] ED Clinical Summaryon 2022 ED Clinical Summary Normal [facility] ED Note-Nursingon 08-15-2022 ED Note-Nursing Normal [facility] ED Patient Education Noteon 08-15-2022 ED Patient Education Note Normal [facility] ED Patient Summaryon 023 ED Patient Summary Normal [facility] Ethanolon 08-15-2022 Ethanol [Mass/Vol] mg/dL Normal <=7 [facility] Comment on above: Performed By: #### 2 993581 ####[facility] [address] [place] [address] Hep Func Panelon 08-15-2022 Albumin [Mass/Vol] 3.9 g/dL Normal 3.3-5.0 [facility] Comment on above: Performed By: #### 1 3666129, 8925500, 2693362, 98090235, 7293876, 6659532 ####[facility] [address] [place] [address] Albumin/Globulin (S) [Mass conc ratio] 1.1 Normal 1.1-2.2 [facility] Comment on above: Performed By: #### 1 5063157, 7578726, 4529350, 32596913, 1036052, 4347025 ####[facility] [address] [place] [address] ALP [Catalytic activity/Vol] 85 Int._Unit/L Normal 21-98 [facility] Comment on above: Performed By: #### 1 2392996, 9489365, 5341045, 98479938, 1865353, 6642288 ####[facility] [address] [place] [address] ALT No additional P-5'-P [Catalytic activity/Vol] 151 Int._Unit/L High 6-46 [facility] Comment on above: Result Comment: 'Spe cimen hemolyzed, result may be affected. Recommend redraw.' Performed By: #### 1 6912500, 5413081, 1535650, 09726269, 4725618, 2665458 ####[facility] [address] [place] [address] AST [Catalytic activity/Vol] 182 Int._Unit/L High 5-43 [facility] Comment on above: Result Comment: 'Spe cimen hemolyzed, result may be affected. Recommend redraw.' Performed By: #### 1 6539756, 9181546, 6550055, 02346693, 2291295, 8646083 ####[facility] [address] [place] [address] Bilirubin [Mass/Vol] 1.2 mg/dL High 0.0-1.1 [facility] Comment on above: Result Comment: 'Spe cimen hemolyzed, result may be affected. Redraw is recommended.' Performed By: #### 1 9089590, 1335483, 6547176, 84151514, 4355904, 2423560 ####[facility] [address] [place] [address] Bilirubin.direct [Mass/Vol] 0.4 mg/dL Normal 0.1-0.4 [facility] Comment on above: Result Comment: 'Spe cimen hemolyzed, result may be affected. Redraw recommended.' Performed By: #### 1 1696974, 8261720, 6317626, 19942629, 0098855, 3869879 ####[facility] [address] [place] [address] Bilirubin.indirect [Mass or moles/Vol] 0.8 mg/dL Normal 0.1-0.9 [facility] Comment on above: Performed By: #### 1 7319844, 8836419, 3852680, 74537164, 3682211, 0755306 ####[facility] [address] [place] [address] Globulin (S) [Mass/Vol] 3.5 g/dL Normal 1.4-4.0 [facility] Comment on above: Performed By: #### 1 3922521, 4021702, 7523728, 78840247, 3765593, 3621622 ####[facility] [address] [place] [address] Protein [Mass/Vol] 7.4 g/dL Normal 6.0-7.8 [facility] Comment on above: Performed By: #### 1 9854195, 4347320, 8556208, 81008829, 3346535, 0712727 ####[facility] [address] [place] [address] Outside Recordson 08-15-2022 Outside Records [id number]#1.00C D:127 Normal [facility] Physician Referralon 023 Physician Referral [id number] :127 Normal [facility] Progress Note-Nurseon 2022 Progress Note-Nurse Patient on phone wit h MHP at this time Normal [facility] Troponin 0 Hr.on 08-15-2022 Troponin I.cardiac [Mass/Vol] 4.50 pg/mL Low 10.10-27.10 [facility] Comment on above: Result Comment: The 95% CI (Confidence Interval) PPV (Positive Predictive Value) for myocardial infarction in females is 38 pg/mL, in males 51 pg/mL. The results should be used in conjunction with clinical conditions of myocardial infarction.(Access High Sensitivity Troponin I Instructions For Use, [employer], September 2017) Performed By: #### 1 7791798, 8754988, 1218461, 79584504, 1624426, 4704459 ####[facility] [address] [place] [address] Valuables Checkliston 2022 Valuables Checklist [id number]#1.00C D:127 Normal [facility] XR Chest Single Viewon 08-15 XR Chest Single View Normal [facility] eGFRon 08-15-2022 GFR/1.73 sq M.predicted among non-blacks MDRD (S/P/Bld) [Vol rate/Area] 78 mL/min/1.73 m2 Normal >=59 [facility] Comment on above: Order Comment: Order added by Discern Expert. Result Comment: Surveillance Sensor Officer justin kidney disease could be indicated at eGFR's of less than 60 mL/min/1.73m2. Kidney failure is indicated at less than 15 mL/min/1.73m2. Performed By: #### 1 8956584, 1909150, 8877644, 78446737, 7802231, 3913551 ####[facility] [address] [place] [id number] Ambulatory Visit Summaryon 0 08-13-2022 Ambulatory Visit Summary Normal [facility] ED Note-Physicianon 06-12-19 ED Note-Physician [id number]#[id number]: 127 Normal [facility] Outside Hospital Correspo ndenceon 06-11-2022 Outside Hospital Correspondence [id number]#[id number]: 127 Normal [facility] Cholesterol [Mass/volume] in Serum or PlasmaOrdered By: Gautam Burrows on 06-08-2022 Cholesterol [Mass/Vol] 110 mg/dL 140-200 [facility] Comment on above: Chol less than 200 m g/dl low riskChol 201-239 mg/dl borderline riskChol 240 mg/dl and greater high risk Cholesterol in LDL Calc [Mas s/Vol]Ordered By: Gautam Burrows on 06-08-2022 Cholesterol in LDL [Mass/Vol] 53 mg/dL 0-100 [facility] Comment on above: LDL ATP III CLASSIFI CATIONLDL less than 100 mg/dL OptimalLDL 100-129 mg/dL Near or above optimalLDL 130-159 mg/dL Borderline highLDL 160-189 mg/dL HighLDL greater than 189 mg/dL Very high Cholesterol in VLDL Calc [Ma ss/Vol]Ordered By: Gautam Burrows on 06-08-2022 Cholesterol in VLDL [Mass/Vol] 21 mg/dL [facility] ECG 12 lead ECGon 06-08-2022 ECG 12 lead ECG [facility] [address] [address] Electrocardiograph Report Signed Patient: Lyle Flynn MR#: [id number] : 1990 Acct:[id number] Age/Sex: 32 / F ADM Date: 06/07/22 Loc: Room: [address] [place] [address] Type: ADM IN Attending Dr: Nguyễn Burrows MD Ordering Provider: Gautam Burrows MD Date of Service: 06/08/22 ECG/ECG 12 lead ECG: medications Copies to: Test Reason : Blood Pressure : / mmHG Vent. Rate : 061 BPM Atrial Rate : 061 BPM P-R Int : 158 ms QRS Dur : 094 ms QT Int : 468 ms P-R-T Axes : 059 076 055 degrees QTc Int : 471 ms Normal sinus rhythm with sinus arrhythmia Possible Left atrial enlargement Borderline ECG When compared with ECG of 07-JUN-2022 09:02, Vent. rate has decreased BY 54 BPM Confirmed by EDDIE STARK DO ([id number]) on 06/08/2022 7:27:29 PM Referred By: Electronically Signed By:EDDIE STARK DO Transcribed By: MUS Signed By Eddie Stark DO 06/08 192 Normal [facility] Lipid Panelon 06-08-2022 Cholesterol [Mass/Vol] 110 mg/dL Low 140-200 [facility] Comment on above: Result Comment: Chol less than 200 mg/dl low risk Chol 201-239 mg/dl borderline risk Chol 240 mg/dl and greater high risk Performed By: #### H S TROP, CBC, DDIMER, PP, MG, BMP #### [facility] [address] [place] [id number] [place] Cholesterol in HDL [Mass/Vol] 35 mg/dL Normal 35-85 [facility] Comment on above: Result Comment: HDL CHOL ATP-III CLASSIFICATION Cardiovascular Risk HDL > or equal to 60 mg/dL LOW HDL < 40 mg/dL HIGH Performed By: #### H S TROP, CBC, DDIMER, PP, MG, BMP #### [facility] [address] [place] [address] [place] Cholesterol.total/Cho lesterol in HDL [Mass ratio] 3.1 {ratio} Normal <5.0 [facility] Comment on above: Performed By: #### H S TROP, CBC, DDIMER, PP, MG, BMP #### [facility] [address] LDL Cholesterol,Calculate d 53 mg/dL Normal 0-100 [facility] Comment on above: Result Comment: LDL ATP III CLASSIFICATION LDL less than 100 mg/dL Optimal LDL 100-129 mg/dL Near or above optimal LDL 130-159 mg/dL Borderline high LDL 160-189 mg/dL High LDL greater than 189 mg/dL Very high Performed By: #### H S TROP, CBC, DDIMER, PP, MG, BMP #### [facility] [address] Triglyceride w/Reflex 109 mg/dL Normal 0-149 [facility] Comment on above: Result Comment: TRIG ATP III CLASSIFICATION TRIG less than 150 mg/dL Normal TRIG 150-199 mg/dL Borderline high TRIG 200-500 mg/dL High TRIG greater than 500 mg/dL Very high Standard traceable to the Center for Disease Conrtrol and Prevention (CDC) test method. Performed By: #### H S TROP, CBC, DDIMER, PP, MG, BMP #### [facility] [address] VLDL CHOLESTEROL 21 mg/dL Normal [facility] Comment on above: Performed By: #### H S TROP, CBC, DDIMER, PP, MG, BMP #### [facility] [address] Serum or plasma high density lipoprotein (HDL) cholesterol measurementOrdered By: Gautam Burrows on 06-08-2022 Cholesterol in HDL [Mass/Vol] 35 mg/dL 35-85 [facility] Comment on above: HDL CHOL ATP-III CLA SSIFICATION Cardiovascular RiskHDL > or equal to 60 mg/dL LOWHDL < 40 mg/dL HIGH Serum or plasma total choles terol/high density lipoprotein (HDL) cholesterol mass ratOrdered By: Gautam Burrows on 06-08-2022 Cholesterol.total/Cho lesterol in HDL [Mass ratio] 3.1 {ratio} <5.0 [facility] Thyroid Stim Hormone w/Rflxo n 06-08-2022 Thyroid Stim Hormone w/Rflx 1.46 u[iU]/mL Normal 0.45-5.33 [facility] Comment on above: Performed By: #### H S TROP, CBC, DDIMER, PP, MG, BMP #### [facility] [address] Thyrotropin [Units/volume] i n Serum or PlasmaOrdered By: Gautam Burrows on 06-08-2022 TSH Qn 1.46 m[IU]/L 0.45-5.33 [facility] Triglyceride [Mass/volume] i n Serum or PlasmaOrdered By: Gautam Burrows on 06-08-2022 Triglyceride [Mass/Vol] 109 mg/dL 0-149 [facility] Comment on above: TRIG ATP III CLASSIF ICATIONTRIG less than 150 mg/dL NormalTRIG 150-199 mg/dL Borderline highTRIG 200-500 mg/dL High TRIG greater than 500 mg/dL Very highStandard traceable to the Center for Disease Conrtrol and Prevention (CDC) test method. Vitamin D 25 Hydroxy Totalon 06-08-2022 Vitamin D 25 Hydroxy Total 23.4 ng/mL Low 30-100 [facility] Comment on above: Result Comment: [place] MIN D STATUS 25([place])VITAMIN D RANGE (ng/mL) Deficient <20 Insufficient 20 to <30 Sufficient 30 to 100 Reference: Tete MF,David NC, Horace COTO, et al. Evaluation,treatment, and prevention of vitamin D deficiency; an Endocrine Society clinical practice guideline. JCEM. 2010; 96(7):1911-30. PERFORMED BY: [facility] [address] [place] [address] PATHOLOGIST FOOD AND BEVERAGE COORDINATOR LEE CARDOSO M.D. Performed By: #### H S TROP, CBC, DDIMER, PP, MG, BMP #### [facility] [address] Vitamin D+Metabolites [Mass/ volume] in Serum or PlasmaOrdered By: Gautam Burrows on 06-08-2022 Vitamin D+Metabolites [Mass/Vol] 23.4 ng/mL 30-100 [facility] Comment on above: VITAMIN D STATUS 25( [place])VITAMIN D RANGE (ng/mL) Deficient <20 Insufficient 20 to <30Sufficient 30 to 100Reference: Tete NOLAN,David JEAN, Horace COTO, et al. Evaluation,treatment, and prevention of vitamin D deficiency; an Endocrine Society clinical practice guideline. JCEM. 2010; 96(7):1911-30. Activated partial thrombopla stin time (aPTT) in platelet poor plasma by coagulation aOrdered By: Ari Aguero on 06-07-2022 aPTT Coag (PPP) [Time] 30.0 s 25.1-36.5 [facility] Alanine aminotransferase [En zymatic activity/volume] in Serum or PlasmaOrdered By: Ari Aguero on 06-07-2022 ALT [Catalytic activity/Vol] 109 U/L 7-52 [facility] Albumin [Mass/volume] in Ser um or Plasma by Bromocresol green (BCG) dye binding methoOrdered By: Ari Aguero on 06-07-2022 Albumin BCG dye [Mass/Vol] 4.1 g/dL 3.5-5.7 [facility] Alkaline phosphatase [Enzyma tic activity/volume] in Serum or PlasmaOrdered By: Ari Aguero on 06-07-2022 ALP [Catalytic activity/Vol] 87 U/L 34-104 [facility] Amphetamine Screen Ql (U)Ord ered By: Ari Aguero on 06-07-2022 Amphetamines Ql (U) Positive Negative [facility] Aspartate aminotransferase [ Enzymatic activity/volume] in Serum or PlasmaOrdered By: Ari Aguero on 06-07-2022 AST [Catalytic activity/Vol] 122 U/L 13-39 [facility] Automated erythrocytes count in urine sediment (number/area)Ordered By: Ari Aguero on 06-07-2022 RBC Auto (Urine sed) [#/Area] 3-4 [HPF] 0-4 [facility] Automated leukocytes count i n urine sediment (number/area)Ordered By: Ari Aguero on 06-07-2022 WBC Auto (Urine sed) [#/Area] 0-1 [HPF] 0-4 [facility] Automated urine hyaline cast s count (number/volume)Ordered By: Ari Aguero on 06-07-2022 Hyaline casts Auto (U) [#/Vol] 20-49 [LPF] 0-1 [facility] Barbiturates [Presence] in U rine by Screen methodOrdered By: Ari Aguero on 06-07-2022 Barbiturates Screen Ql (U) Negative Negative [facility] Basophils Auto (Bld) [#/Vol] Ordered By: Ari Aguero on 06-07-2022 Basophils (Bld) [#/Vol] 0.1 10*3/uL 0.0-0.2 [facility] Basophils/100 WBC Auto (Bld) Ordered By: Ari Aguero on 06-07-2022 Basophils/100 WBC (Bld) 0.5 % . [facility] Benzodiazepines Screen Ql (U )Ordered By: Ari Aguero on 06-07-2022 Benzodiazepines Ql (U) Negative Negative [facility] Benzoylecgonine [Presence] i n Urine by Screen methodOrdered By: Ari Aguero on 06-07-2022 Benzoylecgonine Screen Ql (U) Negative Negative [facility] Bilirubin Test strip Ql (U)O rdered By: Ari Aguero on 06-07-2022 Bilirubin Ql (U) Negative Negative [facility] Bilirubin.total [Mass/volume ] in Serum or PlasmaOrdered By: Ari Aguero on 06-07-2022 Bilirubin [Mass/Vol] 0.9 mg/dL 0.3-1.0 [facility] Calcium [Mass/volume] in Ser um or PlasmaOrdered By: Ari Aguero on 06-07-2022 Calcium [Mass/Vol] 9.2 mg/dL 8.6-10.3 [facility] Cannabinoids [Presence] in U rine by Screen methodOrdered By: Ari Aguero on 06-07-2022 Cannabinoids Screen Ql (U) Negative Negative [facility] Comment on above: These are unconfirme d results and should not be used for legal purposes. Drug Cut-Off Concentration: AMPH 1000 ng/mL JANELL 200 ng/mL JAMES 200 ng/mL COCM 300 ng/mL OP 300 ng/mL PCP 25 ng/mL THC 20 ng/mL Carbon dioxide, total [Moles /volume] in Serum or PlasmaOrdered By: Ari Aguero on 06-07-2022 CO2 [Moles/Vol] 23.1 mmol/L 21.0-31.0 [facility] Casts typing in urine sedime nt by light microscopyOrdered By: Ari Aguero on 06-07-2022 Casts LM Nom (Urine sed) None seen [LPF] None Seen [facility] Chloride [Moles/volume] in S marbella or PlasmaOrdered By: Ari Aguero on 06-07-2022 Chloride [Moles/Vol] 105 mmol/L 98-107 [facility] Coarse granular casts count in urine sediment by microscopy low power field (number/aOrdered By: Ari Aguero on 06-07-2022 Coarse Granular Casts LM.LPF (Urine sed) [#/Area] 0-1 [LPF] 0-1 [facility] Color Auto (U)Ordered By: Robin red More on 06-07-2022 Color (U) Dark yellow Yellow [facility] Complete Blood Count Auto Di ffon 06-07-2022 Basophils (Bld) [#/Vol] 0.1 10*3/uL Normal 0.0-0.2 [facility] Comment on above: Result Comment: PERF ORMED BY: [address] [place] [address] PATHOLOGIST FOOD AND BEVERAGE COORDINATOR LEE CARDOSO M.D. Performed By: #### E ODALIS, CMP, CBC #### [facility] [address] [place] [address] [place] Basophils/100 WBC (Bld) 0.5 % Normal . [facility] Comment on above: Performed By: #### E ODALIS, CMP, CBC #### [facility] [address] [place] [address] [place] Eosinophils (Bld) [#/Vol] 0.0 10*3/uL Normal 0.0-0.45 [facility] Comment on above: Performed By: #### E ODALIS, CMP, CBC #### [facility] [address] [place] [address] [place] Eosinophils/100 WBC (Bld) 0.2 % Normal . [facility] Comment on above: Performed By: #### E TRIPP JACOBO, CBC #### [facility] [address] Erythrocyte distribution width (RBC) [Ratio] 13.5 % Normal 11.9-15.3 [facility] Comment on above: Performed By: #### E TRIPP JACOBO, CBC #### [address] Hematocrit (Bld) [Volume fraction] 40.7 % Normal 34.0-46.4 [facility] Comment on above: Performed By: #### E TRIPP JACOBO, CBC #### [address] Hemoglobin (Bld) [Mass/Vol] 13.6 g/dL Normal 11.8-15.4 [facility] Comment on above: Performed By: #### E TRIPP JACOBO, CBC #### [address] Lymphocytes (Bld) [#/Vol] 1.6 10*3/uL Normal 1.00-4.8 [facility] Comment on above: Performed By: #### E TRIPP JACOBO, CBC #### [place] [address] [place] Lymphocytes/100 WBC (Bld) 11.6 % Normal . [facility] Comment on above: Performed By: #### E TRIPP JACOBO, CBC #### [address] MCH (RBC) [Entitic mass] 30.6 pg Normal 24.7-34.3 [facility] Comment on above: Performed By: #### E ODALIS CMP, CBC #### [place] [address] [place] MCV (RBC) [Entitic vol] 91.7 fL Normal 80-100 [facility] Comment on above: Performed By: #### E ODALIS, CMP, CBC #### [facility] [address] [place] [address] Mean Corpuscular HGB Conc 33.4 g/dL Normal 32.0-35.0 [facility] Comment on above: Performed By: #### E ODALIS, CMP, CBC #### [facility] [address] [place] [address] [place] Monocytes (Bld) [#/Vol] 0.6 10*3/uL Normal 0.0-0.8 [facility] Comment on above: Performed By: #### E ODALIS, CMP, CBC #### [address] Monocytes/100 WBC (Bld) 20.34 % High 0.00-20.00 [facility] Comment on above: Result Comment: For adults in ED, MDW > 20.0 may be associated with a higher risk of sepsis during the first 12 hrs of hospital admission Performed By: #### E ODALIS, CMP, CBC #### [address] Monocytes/100 WBC (Bld) 4.7 % Normal . [facility] Comment on above: Performed By: #### E ODALIS CMP, CBC #### [address] Neutrophils (Bld) [#/Vol] 11.2 10*3/uL High 1.8-7.7 [facility] Comment on above: Performed By: #### E ODALIS, CMP, CBC #### [place] [address] [place] Neutrophils/100 WBC (Bld) 83.0 % Normal . [facility] Comment on above: Performed By: #### E ODALIS, CMP, CBC #### [facility] [address] [place] [address] NRBC% 0.1 /100{WBC} Normal 0-0.5 [facility] Comment on above: Performed By: #### E ODALIS, CMP, CBC #### [facility] [address] [place] [address] Platelet mean volume (Bld) [Entitic vol] 8.5 fL Normal 6.3-10.7 [facility] Comment on above: Performed By: #### E TRIPP JACOBO, CBC #### [address] Platelets (Bld) [#/Vol] 142 10*3/uL Low 150-450 [facility] Comment on above: Performed By: #### E TRIPP JACOBO, CBC #### [address] RBC (Bld) [#/Vol] 4.44 10*6/uL Normal 3.60-5.00 [facility] Comment on above: Performed By: #### E TRIPP JACOBO, CBC #### [address] WBC (Bld) [#/Vol] 13.5 10*3/uL High 3.8-11.6 [facility] Comment on above: Performed By: #### E TRIPP JACOBO, CBC #### [address] Comprehensive Metabolic Pane mary beth 06-07-2022 Albumin [Mass/Vol] 4.1 g/dL Normal 3.5-5.7 [facility] Comment on above: Performed By: #### E TRIPP JACOBO, CBC #### [address] Albumin/Globulin [Mass ratio] 1.2 {ratio} Normal [facility] Comment on above: Performed By: #### E TRIPP JACOBO, CBC #### [address] ALP [Catalytic activity/Vol] 87 U/L Normal 34-104 [facility] Comment on above: Performed By: #### E TRIPP JACOBO, CBC #### [address] ALT [Catalytic activity/Vol] 109 U/L High 7-52 [facility] Comment on above: Performed By: #### E TRIPP JACOBO, CBC #### [facility] [address] Anion gap [Moles/Vol] 15.6 mmol/L High 6.0-15.0 [facility] Comment on above: Performed By: #### E ODALIS CMP, CBC #### [facility] [address] [place] [address] [place] AST [Catalytic activity/Vol] 122 U/L High 13-39 [facility] Comment on above: Performed By: #### E TRIPP JACOBO, CBC #### [facility] [address] Bilirubin [Mass/Vol] 0.9 mg/dL Normal 0.3-1.0 [facility] Comment on above: Performed By: #### E TRIPP JACOBO, CBC #### [facility] [address] Calcium [Mass/Vol] 9.2 mg/dL Normal 8.6-10.3 [facility] Comment on above: Performed By: #### E TRIPP JACOBO, CBC #### [facility] [address] [place] [address] [place] Chloride [Moles/Vol] 105 mmol/L Normal 98-107 [facility] Comment on above: Performed By: #### E TRIPP JACOBO, CBC #### [facility] [address] [place] [address] [place] CO2 [Moles/Vol] 23.1 mmol/L Normal 21.0-31.0 [facility] Comment on above: Performed By: #### E ODALIS CMP, CBC #### [facility] [address] [place] [address] [place] Creatinine [Mass/Vol] 0.84 mg/dL Normal 0.60-1.20 [facility] Comment on above: Performed By: #### E ODALIS CMP, CBC #### [facility] [address] [place] [address] [place] Creatinine Clr Calc Pharmacy 91.63 Normal [facility] Comment on above: Performed By: #### E TRIPP JACOBO, CBC #### [facility] [address] [place] [address] [place] GFR/1.73 sq M.predicted MDRD (S/P/Bld) [Vol rate/Area] mL/min/{1.73_m2} [facility] Comment on above: Performed By: #### E TRIPP JACOBO, CBC #### [facility] [address] Globulin (S) [Mass/Vol] 3.5 g/dL [facility] Comment on above: Performed By: #### E TRIPP JACOBO, CBC #### [address] Glucose [Mass/Vol] 82 mg/dL Normal 70-100 [facility] Comment on above: Result Comment: [facility] Glucose Reference Range is dependent on time and content of last meal. Glucose of more than 200 mg/dL in a nonstressed, ambulatory subject supports the diagnosis of Diabetes Mellitus. ADA recommended reference range Performed By: #### E TRIPP JACOBO, CBC #### [facility] [address] Potassium [Moles/Vol] 3.7 mmol/L Normal 3.5-5.1 [facility] Comment on above: Performed By: #### E TRIPP JACBOO, CBC #### [facility] [address] Protein [Mass/Vol] 7.6 g/dL Normal 6.4-8.9 [facility] Comment on above: Performed By: #### E TRIPP JACOBO, CBC #### [facility] [address] [place] [address] [place] Sodium [Moles/Vol] 140 mmol/L Normal 136-145 [facility] Comment on above: Performed By: #### E TRIPP JACOBO, CBC #### [facility] [address] Urea nitrogen [Mass/Vol] 18 mg/dL Normal 7-25 [facility] Comment on above: Performed By: #### E ODALIS, CMP, CBC #### [facility] [address] Creatinine [Mass/volume] in Serum or PlasmaOrdered By: Ari Aguero on 06-07-2022 Creatinine [Mass/Vol] 0.84 mg/dL 0.60-1.20 [facility] Dipstick and Microscopicon 0 06-07-2022 Appearance (U) Clear Normal Clear [facility] Comment on above: Order Comment: Name Collection Type:: Straight Catheter Performed By: #### H S TROP, CBC, DDIMER, PP, MG, BMP #### [facility] [address] Bacteria,Urine None Seen Normal None Seen [facility] Comment on above: Order Comment: Name Collection Type:: Straight Catheter Performed By: #### H S TROP, CBC, DDIMER, PP, MG, BMP #### [facility] [address] Bilirubin,Urine Negative Normal Negative [facility] Comment on above: Order Comment: Name Collection Type:: Straight Catheter Performed By: #### H S TROP, CBC, DDIMER, PP, MG, BMP #### [facility] [address] [place] [address] Coarse Granular Casts,Urine 0-1 Normal 0-1 [facility] Comment on above: Order Comment: Name Collection Type:: Straight Catheter Performed By: #### H S TROP, CBC, DDIMER, PP, MG, BMP #### [facility] [address] [place] [address] Color (U) Dark Yellow Critically abnormal Yellow [facility] Comment on above: Order Comment: Name Collection Type:: Straight Catheter Performed By: #### H S TROP, CBC, DDIMER, PP, MG, BMP #### [facility] [address] [place] [address] Glucose Ql (U) Normal Normal Normal [facility] Comment on above: Order Comment: Name Collection Type:: Straight Catheter Performed By: #### H S TROP, CBC, DDIMER, PP, MG, BMP #### [facility] [address] [place] [address] Hyaline Casts,Urine 20-49 High 0-1 [facility] Comment on above: Order Comment: Name Collection Type:: Straight Catheter Performed By: #### H S TROP, CBC, DDIMER, PP, MG, BMP #### [address] Ketones Ql (U) 2+ High Negative [facility] Comment on above: Order Comment: Name Collection Type:: Straight Catheter Performed By: #### H S TROP, CBC, DDIMER, PP, MG, BMP #### [address] Leukocyte esterase Test strip Ql (U) Negative Normal Negative [facility] Comment on above: Order Comment: Name Collection Type:: Straight Catheter Performed By: #### H S TROP, CBC, DDIMER, PP, MG, BMP #### [address] Nitrite,Urine Negative Normal Negative [facility] Comment on above: Order Comment: Name Collection Type:: Straight Catheter Performed By: #### H S TROP, CBC, DDIMER, PP, MG, BMP #### [address] Occult Blood,Urine Negative Normal Negative [facility] Comment on above: Order Comment: Name Collection Type:: Straight Catheter Performed By: #### H S TROP, CBC, DDIMER, PP, MG, BMP #### [address] Other Casts,Urine None Seen Normal None Seen [facility] Comment on above: Order Comment: Name Collection Type:: Straight Catheter Performed By: #### H S TROP, CBC, DDIMER, PP, MG, BMP #### [address] pH (U) 5.5 [pH] Normal 5.0-9.0 [facility] Comment on above: Order Comment: Name Collection Type:: Straight Catheter Performed By: #### H S TROP, CBC, DDIMER, PP, MG, BMP #### [address] Protein (U) [Mass/Vol] 30 mg/dL High Negative [facility] Comment on above: Order Comment: Name Collection Type:: Straight Catheter Performed By: #### H S TROP, CBC, DDIMER, PP, MG, BMP #### [address] RBC,Urine 3-4 Normal 0-4 [facility] Comment on above: Order Comment: Name Collection Type:: Straight Catheter Performed By: #### H S TROP, CBC, DDIMER, PP, MG, BMP #### [address] Red Blood Cell Casts,Urine 0-1 High None Seen [facility] Comment on above: Order Comment: Name Collection Type:: Straight Catheter Performed By: #### H S TROP, CBC, DDIMER, PP, MG, BMP #### [address] Specificy [place],Urine 1.032 High 1.001-1.030 [facility] Comment on above: Order Comment: Name Collection Type:: Straight Catheter Performed By: #### H S TROP, CBC, DDIMER, PP, MG, BMP #### [address] Squamous Epithelial Cell,Urine 5-9 High 0-2 [facility] Comment on above: Order Comment: Name Collection Type:: Straight Catheter Performed By: #### H S TROP, CBC, DDIMER, PP, MG, BMP #### [address] Urobilinogen,Urine Normal Normal Normal [facility] Comment on above: Order Comment: Name Collection Type:: Straight Catheter Performed By: #### H S TROP, CBC, DDIMER, PP, MG, BMP #### [address] WBC LM.HPF (Urine sed) [#/Area] 0 /[HPF] Normal 0-4 [facility] Comment on above: Order Comment: Name Collection Type:: Straight Catheter Performed By: #### H S TROP, CBC, DDIMER, PP, MG, BMP #### [address] Drug Screen,Urineon 06-08-19 23 Amphetamine Screen,Urine Positive High Negative [facility] Comment on above: Performed By: #### H S TROP, CBC, DDIMER, PP, MG, BMP #### [address] Barbiturate Screen,Urine Negative Normal Negative [facility] Comment on above: Performed By: #### H S TROP, CBC, DDIMER, PP, MG, BMP #### [address] Benzodiazepines Screen,Urine Negative Normal Negative [facility] Comment on above: Performed By: #### H S TROP, CBC, DDIMER, PP, MG, BMP #### [address] Cannabinoid Screen,Urine Negative Normal Negative [facility] Comment on above: Result Comment: Thes e are unconfirmed results and should not be used for legal purposes. Drug Cut-Off Concentration: AMPH 1000 ng/mL JANELL 200 ng/mL JAMES 200 ng/mL COCM 300 ng/mL OP 300 ng/mL PCP 25 ng/mL THC 20 ng/mL PERFORMED BY: [place] [address] PATHOLOGIST FOOD AND BEVERAGE COORDINATOR LEE CARDOSO M.D. Performed By: #### H S TROP, CBC, DDIMER, PP, MG, BMP #### [address] Cocaine Screen,Urine Negative Normal Negative [facility] Comment on above: Performed By: #### H S TROP, CBC, DDIMER, PP, MG, BMP #### [address] Opiate Screen,Urine Negative Normal Negative [facility] Comment on above: Performed By: #### H S TROP, CBC, DDIMER, PP, MG, BMP #### [facility] [address] Phencyclidine Screen,Urine Negative Normal Negative [facility] Comment on above: Performed By: #### H S TROP, CBC, DDIMER, PP, MG, BMP #### [facility] [address] ECG 12 lead ECGon 06-07-2022 ECG 12 lead ECG [facility] [address] [place] [address] [place] [address] Electrocardiograph Report Signed Patient: Lyle Flynn MR#: [id number] : 1990 Acct:[id number] Age/Sex: 32 / F ADM Date: 06/07/22 Loc: ER Room: Type: [facility] ER Attending Dr: Ordering Provider: Ari Aguero DO Date of Service: 06/07/22 ECG/ECG 12 lead ECG: Alcohol Copies to: Test Reason : Blood Pressure : 151/101 mmHG Vent. Rate : 115 BPM Atrial Rate : 115 BPM P-R Int : 134 ms QRS Dur : 080 ms QT Int : 344 ms P-R-T Axes : 063 083 032 degrees QTc Int : 475 ms Sinus tachycardia Possible Left atrial enlargement Borderline ECG When compared with ECG of 11-APR-2022 09:23, T wave amplitude has decreased in Anterior leads Confirmed by Ari Aguero DO ([id number]) on 06/07/2022 3:23:50 PM Referred By: Electronically Signed By:Ari Aguero DO Transcribed By: MUS Signed By Ari Aguero DO 3 1523 Normal [facility] Eosinophils Auto (Bld) [#/Vo l]Ordered By: Ari Aguero on 06-07-2022 Eosinophils (Bld) [#/Vol] 0.0 10*3/uL 0.0-0.45 [facility] Eosinophils/100 WBC Auto (Bl d)Ordered By: Ari Aguero on 06-07-2022 Eosinophils/100 WBC (Bld) 0.2 % . [facility] Erythrocyte distribution wid th Auto (RBC) [Ratio]Ordered By: Ari Aguero on 06-07-2022 Erythrocyte distribution width (RBC) [Ratio] 13.5 % 11.9-15.3 [facility] Ethanol [Mass/volume] in Ser um or PlasmaOrdered By: Ari Aguero on 06-07-2022 Ethanol [Mass/Vol] mg/dL [facility] Ethanol [Mass/Vol] TNP [facility] Comment on above: Test not performed Ethyl Alcohol Profileon 05-13 Ethanol [Mass/Vol] mg/dL Normal [facility] Comment on above: Performed By: #### E ODALIS, CMP, CBC #### [facility] [address] Percent Ethanol Not performed Normal [facility] Comment on above: Result Comment: PERF ORMED BY: [place] [address] PATHOLOGIST FOOD AND BEVERAGE COORDINATOR LEE CARDOSO M.D. Performed By: #### E ODALIS, CMP, CBC #### [facility] [address] Globulin Calc (S) [Mass/Vol] Ordered By: Ari Aguero on 06-07-2022 Globulin (S) [Mass/Vol] 3.5 g/dL [facility] Glucose [Mass/volume] in Ser um or PlasmaOrdered By: Ari Aguero on 06-07-2022 Glucose [Mass/Vol] 82 mg/dL 70-100 [facility] Comment on above: ADA recommended refe rence rangeRandom Glucose Reference Range is dependent on time and content of last meal. Glucose of more than 200 mg/dL in a nonstressed, ambulatory subject supports the diagnosis of Diabetes Mellitus. HCG ( test) IA.rapi d Ql (U)Ordered By: Ari Aguero on 06-07-2022 HCG ( test) Ql (U) Negative [facility] HCG,Urineon 06-07-2022 Beta HCG ( test) Ql (U) Negative Normal [facility] Comment on above: Order Comment: Name Collection Type:: Straight Catheter Result Comment: PERF ORMED BY: [place] [address] PATHOLOGIST FOOD AND BEVERAGE COORDINATOR LEE CARDOSO M.D. Performed By: #### H S TROP, CBC, DDIMER, PP, MG, BMP #### [facility] [address] [place], [place] [id number] [facility] Hematocrit Auto (Bld) [Volum e fraction]Ordered By: Ari Aguero on 06-07-2022 Hematocrit (Bld) [Volume fraction] 40.7 % 34.0-46.4 [facility] Hemoglobin [Mass/volume] in BloodOrdered By: Ari Aguero on 06-07-2022 Hemoglobin (Bld) [Mass/Vol] 13.6 g/dL 11.8-15.4 [facility] Ketones Auto test strip (U) [Mass/Vol]Ordered By: Ari Aguero on 06-07-2022 Ketones (U) [Mass/Vol] 2+ Negative [facility] Laboratory - CoagulationOrde red By: Ari Aguero on 06-07-2022 PT Coag (PPP) [Time] 12.7 s 9.0-12.9 [facility] Leukocytes [#/volume] correc jose for nucleated erythrocytes in Blood by Automated counOrdered By: Ari Aguero on 06-07-2022 WBC corrected for nucl RBC Auto (Bld) [#/Vol] 13.5 10*3/uL 3.8-11.6 [facility] Lipaseon 06-07-2022 Lipase [Catalytic activity/Vol] 10.0 U/L Low 11.0-82.0 [facility] Comment on above: Result Comment: PERF ORMED BY: [place] [address] PATHOLOGIST FOOD AND BEVERAGE COORDINATOR LEE CARDOSO M.D. Performed By: #### E ODALIS, CMP, CBC #### [facility] [address] [place], [place] [id number] [facility] Lipase [Enzymatic activity/v olume] in Serum or PlasmaOrdered By: Ari Aguero on 06-07-2022 Lipase [Catalytic activity/Vol] 10.0 U/L 11.0-82.0 [facility] Lymphocytes Auto (Bld) [#/Vo l]Ordered By: Ari Aguero on 06-07-2022 Lymphocytes (Bld) [#/Vol] 1.6 10*3/uL 1.00-4.8 [facility] Lymphocytes/100 WBC Auto (Bl d)Ordered By: Ari Aguero on 06-07-2022 Lymphocytes/100 WBC (Bld) 11.6 % . [facility] MCH Auto (RBC) [Entitic mass ]Ordered By: Ari Aguero on 06-07-2022 MCH (RBC) [Entitic mass] 30.6 pg 24.7-34.3 [facility] MCHC Auto (RBC) [Mass/Vol]Or dered By: Ari Aguero on 06-07-2022 MCHC (RBC) [Mass/Vol] 33.4 g/dL 32.0-35.0 [facility] MCV Auto (RBC) [Entitic vol] Ordered By: Ari Aguero on 06-07-2022 MCV (RBC) [Entitic vol] 91.7 fL 80-100 [facility] Monocyte distribution width [Entitic volume] in Blood by AutomatedOrdered By: Ari Aguero on 06-07-2022 Monocyte distribution width Auto (Bld) [Entitic vol] 20.34 % 0.00-20.00 [facility] Comment on above: For adults in ED, MD W > 20.0 may be associated with a higher risk of sepsis during the first 12 hrs of hospital admission Monocytes Auto (Bld) [#/Vol] Ordered By: Ari Aguero on 06-07-2022 Monocytes (Bld) [#/Vol] 0.6 10*3/uL 0.0-0.8 [facility] Monocytes/100 WBC Auto (Bld) Ordered By: Ari Aguero on 06-07-2022 Monocytes/100 WBC (Bld) 4.7 % . [facility] Neutrophils Auto (Bld) [#/Vo l]Ordered By: Ari Aguero on 06-07-2022 Neutrophils (Bld) [#/Vol] 11.2 10*3/uL 1.8-7.7 [facility] Neutrophils/100 WBC Auto (Bl d)Ordered By: Ari Aguero on 04-27-2023 Neutrophils/100 WBC (Bld) 83.0 % . [facility] Nitrite Test strip Ql (U)Ord ered By: Ari Aguero on 06-07-2022 Nitrite Ql (U) Negative Negative [facility] No Panel InformationOrdered By: Ari Aguero on 06-07-2022 Estimated GFR (CKD-EPI) > 60.0 mL/Min [facility] Creatinine Clearance (Chem 91.63 [facility] Nucleated erythrocytes [Pres ence] in Blood by Automated countOrdered By: Ari Aguero on 06-07-2022 Nucleated RBC Auto Ql (Bld) 0.1 /100{WBC} 0-0.5 [facility] Opiates [Presence] in Urine by Screen methodOrdered By: Ari Aguero on 06-07-2022 Opiates Screen Ql (U) Negative Negative Fir [facility] Partial Thromboplastin Timeo n 06-07-2022 aPTT Coag (Bld) [Time] 30.0 s Normal 25.1-36.5 [facility] Comment on above: Result Comment: PERF ORMED BY: [place] [address] PATHOLOGIST FOOD AND BEVERAGE COORDINATOR LEE CARDOSO M.D. Performed By: #### E ODALIS, CMP, CBC #### [address] Phencyclidine Screen Ql (U)O rdered By: Ari Aguero on 06-07-2022 Phencyclidine Ql (U) Negative Negative [facility] Platelet mean volume Auto (B ld) [Entitic vol]Ordered By: Ari Aguero on 06-07-2022 Platelet mean volume (Bld) [Entitic vol] 8.5 fL 6.3-10.7 [facility] Platelet poor plasma interna tional normalized ratio (INR) by coagulation assay (relatOrdered By: Ari Aguero on 06-07-2022 INR Coag (PPP) [Relative time] 1.1 {INR} [facility] Comment on above: INR Therapeutic Rang e A) Pre- and Peroperative OAT started two weeks before surgery. NOT HIP SURGERY: 1.5 - 2.5 HIP SURGERY: 2 - 3B) Primary and secondary prevention of venous THROMBOSIS: 2 - 3C) Active venous thrombosis, pulmonary embolismand prevention of recurrent venous thrombosis: 2 - 3D) Prevention of arterial thromboembolismincluding patients with mechanical heart valves: 3 - 4.5 Platelets Auto (Bld) [#/Vol] Ordered By: Ari Aguero on 06-07-2022 Platelets (Bld) [#/Vol] 142 10*3/uL 150-450 [facility] Potassium [Moles/volume] in Serum or PlasmaOrdered By: Ari Aguero on 06-07-2022 Potassium [Moles/Vol] 3.7 mmol/L 3.5-5.1 [facility] Protein Auto test strip (U) [Mass/Vol]Ordered By: Ari Aguero on 06-07-2022 Protein (U) [Mass/Vol] 30 mg/dL Negative [facility] Protein [Mass/volume] in Ser um or PlasmaOrdered By: Ari Aguero on 06-07-2022 Protein [Mass/Vol] 7.6 g/dL 6.4-8.9 [facility] Prothrombin Time INRon 06-07 INR Coag (PPP) [Relative time] 1.1 {INR} Normal [facility] Comment on above: Result Comment: INR Therapeutic Range A) Pre- and Peroperative OAT started two weeks before surgery. NOT HIP SURGERY: 1.5 - 2.5 HIP SURGERY: 2 - 3 B) Primary and secondary prevention of venous THROMBOSIS: 2 - 3 C) Active venous thrombosis, pulmonary embolism and prevention of recurrent venous thrombosis: 2 - 3 D) Prevention of arterial thromboembolism including patients with mechanical heart valves: 3 - 4.5 Performed By: #### E TRIPP JACOBO, CBC #### [facility] [address] PT Coag (PPP) [Time] 12.7 s Normal 9.0-12.9 [facility] Comment on above: Performed By: #### E TRIPP JACOBO, CBC #### [facility] [address] RBC Auto (Bld) [#/Vol]Ordere d By: Ari Aguero on 06-07-2022 RBC (Bld) [#/Vol] 4.44 10*6/uL 3.60-5.00 [facility] Serum or plasma albumin/glob ulin mass ratioOrdered By: Ari Aguero on 06-07-2022 Albumin/Globulin [Mass ratio] 1.2 {ratio} [facility] Serum or plasma anion gap de terminationOrdered By: Ari Aguero on 06-07-2022 Anion gap [Moles/Vol] 15.6 mmol/L 6.0-15.0 [facility] Sodium [Moles/volume] in Ser um or PlasmaOrdered By: Ari Aguero on 06-07-2022 Sodium [Moles/Vol] 140 mmol/L 136-145 [facility] Specific gravity Auto test s trip (U) [Rel density]Ordered By: Ari Aguero on 06-07-2022 Specific gravity (U) [Rel density] 1.032 1.001-1.030 [facility] Squamous epithelial cells de tection in urine sediment by light microscopyOrdered By: Ari Aguero on 06-07-2022 Epithelial cells.squamous LM Ql (Urine sed) 5-9 [HPF] 0-2 [facility] Urea nitrogen [Mass/volume] in Serum or PlasmaOrdered By: Ari Aguero on 06-07-2022 Urea nitrogen [Mass/Vol] 18 mg/dL 7-25 [facility] Urine bacteria detection by automated methodOrdered By: Ari Aguero on 06-07-2022 Bacteria Auto Ql (U) None seen None Seen [facility] Urine clarity by refractomet ry automatedOrdered By: Ari Aguero on 06-07-2022 Clarity Refractometry automated (U) Clear Clear [facility] Urine glucose measurement by automated test strip (mass/volume)Ordered By: Ari Aguero on 06-07-2022 Glucose Auto test strip (U) [Mass/Vol] Normal mg/dL Normal [facility] Urine hemoglobin detection b y automated test stripOrdered By: Ari Aguero on 06-07-2022 Hemoglobin Auto test strip Ql (U) Negative Negative [facility] Urine leukocyte esterase det ection by automated test stripOrdered By: Ari Aguero on 06-07-2022 Leukocyte esterase Auto test strip Ql (U) Negative Negative [facility] Urine sediment erythrocyte c ast count by microscopy (number/low power field)Ordered By: Ari Aguero on 06-07-2022 RBC casts LM.LPF (Urine sed) [#/Area] 0-1 [LPF] None Seen [facility] Urobilinogen Auto test strip (U) [Mass/Vol]Ordered By: Ari Aguero on 06-07-2022 Urobilinogen (U) [Mass/Vol] Normal mg/dL Normal [facility] WBC Auto (Bld) [#/Vol]Ordere d By: Ari Aguero on 06-07-2022 WBC (Bld) [#/Vol] 13.5 10*3/uL 3.8-11.6 [facility] XR ribs RT min 3V w CXR1V*on 06-07-2022 XR ribs RT min 3V w CXR1V* [facility] [place] [address] XRay Report Signed Patient: Lyle Flynn MR#: [id number] : 1990 Acct:[id number] Age/Sex: 32 / F ADM Date: 06/07/22 Loc: ER Room: Type: [facility] ER Attending Dr: Copies to: Ari Aguero DO Ordering Provider: Ari Aguero DO Date of Service: 06/07/22 XR/XR ribs RT min 3V w CXR1V*: Alcohol The right Rib series with Single View Chest HISTORY: Generalized right rib pain patient under influence. COMPARISON: 04/11/2022 MEDIASTINUM: Cardiac, mediastinal hilar silhouettes are within normal limits. LUNGS AND PLEURA: No acute lung process, pleural effusion or pneumothorax identified. ACUTE FINDINGS: None DEGENERATIVE CHANGE: Unremarkable SOFT TISSUE: Unremarkable POSTOP CHANGES: None XR/XR ribs RT min 3V w CXR1V* IMPRESSION: No rib fracture. No acute chest findings. Impression dictated by: Stanislav Parker M.D.06/07/2022 11:25 AM Dictation Location: [place] [address] Transcribed By: LEONARDO 06/07/22 1125 Dictated By: Stanislav Parker DO 06/07/22 1120 Signed By: 06/07/22 1125 Normal [facility] pH Auto test strip (U)Ordere d By: Ari Aguero on 06-07-2022 pH (U) 5.5 [pH] 5.0-9.0 [facility] Patient Letter FTon 2022 [place] [facility] [place] [facility] Alanine aminotransferase [En zymatic activity/volume] in Serum or PlasmaOrdered By: Imad Asaad on 04-24-2022 ALT [Catalytic activity/Vol] 48 U/L 7-52 [facility] Albumin [Mass/volume] in Ser um or Plasma by Bromocresol green (BCG) dye binding methoOrdered By: Imad Asaad on 04-24-2022 Albumin BCG dye [Mass/Vol] 4.2 g/dL 3.5-5.7 [facility] Alkaline phosphatase [Enzyma tic activity/volume] in Serum or PlasmaOrdered By: Imad Asaad on 04-24-2022 ALP [Catalytic activity/Vol] 85 U/L 34-104 [facility] Aspartate aminotransferase [ Enzymatic activity/volume] in Serum or PlasmaOrdered By: Imad Asaad on 04-24-2022 AST [Catalytic activity/Vol] 48 U/L 13-39 [facility] Basophils Auto (Bld) [#/Vol] Ordered By: Imad Asaad on 04-24-2022 Basophils (Bld) [#/Vol] 0.1 10*3/uL 0.0-0.2 [facility] Basophils/100 WBC Auto (Bld) Ordered By: Imad Asaad on 04-24-2022 Basophils/100 WBC (Bld) 1.2 % . [facility] Bilirubin.direct [Mass/volum e] in Serum or PlasmaOrdered By: Imad Asaad on 04-24-2022 Bilirubin.direct [Mass/Vol] 0.10 mg/dL 0.03-0.18 [facility] Bilirubin.total [Mass/volume ] in Serum or PlasmaOrdered By: Imad Asaad on 04-24-2022 Bilirubin [Mass/Vol] 0.3 mg/dL 0.3-1.0 [facility] Complete Blood Count Auto Di ffon 04-24-2022 Basophils (Bld) [#/Vol] 0.1 10*3/uL Normal 0.0-0.2 [facility] Comment on above: Order Comment: Reaso n for Exam Hepatitis C Result Comment: PERF ORMED BY: [place] [address] PATHOLOGIST FOOD AND BEVERAGE COORDINATOR LEE CARDOSO M.D. Performed By: #### H S TROP, CBC, DDIMER, PP, MG, BMP #### [facility] [address] [place] [address] Basophils/100 WBC (Bld) 1.2 % Normal . [facility] Comment on above: Order Comment: Reaso n for Exam Hepatitis C Performed By: #### H S TROP, CBC, DDIMER, PP, MG, BMP #### [facility] [address] [place] [address] [place] Eosinophils (Bld) [#/Vol] 0.1 10*3/uL Normal 0.0-0.45 [facility] Comment on above: Order Comment: Reaso n for Exam Hepatitis C Performed By: #### H S TROP, CBC, DDIMER, PP, MG, BMP #### [facility] [address] [place] [address] Eosinophils/100 WBC (Bld) 1.2 % Normal . [facility] Comment on above: Order Comment: Reaso n for Exam Hepatitis C Performed By: #### H S TROP, CBC, DDIMER, PP, MG, BMP #### [facility] [address] [place] [address] Erythrocyte distribution width (RBC) [Ratio] 13.2 % Normal 11.9-15.3 [facility] Comment on above: Order Comment: Reaso n for Exam Hepatitis C Performed By: #### H S TROP, CBC, DDIMER, PP, MG, BMP #### [facility] [address] [place] [address] Hematocrit (Bld) [Volume fraction] 44.2 % Normal 34.0-46.4 [facility] Comment on above: Order Comment: Reaso n for Exam Hepatitis C Performed By: #### H S TROP, CBC, DDIMER, PP, MG, BMP #### [facility] [address] [place] [address] Hemoglobin (Bld) [Mass/Vol] 14.8 g/dL Normal 11.8-15.4 [facility] Comment on above: Order Comment: Reaso n for Exam Hepatitis C Performed By: #### H S TROP, CBC, DDIMER, PP, MG, BMP #### [facility] [address] [place] [address] Lymphocytes (Bld) [#/Vol] 3.0 10*3/uL Normal 1.00-4.8 [facility] Comment on above: Order Comment: Reaso n for Exam Hepatitis C Performed By: #### H S TROP, CBC, DDIMER, PP, MG, BMP #### [facility] [address] [place] [address] Lymphocytes/100 WBC (Bld) 39.0 % Normal . [facility] Comment on above: Order Comment: Reaso n for Exam Hepatitis C Performed By: #### H S TROP, CBC, DDIMER, PP, MG, BMP #### [facility] [address] [place] [address] MCH (RBC) [Entitic mass] 31.8 pg Normal 24.7-34.3 [facility] Comment on above: Order Comment: Reaso n for Exam Hepatitis C Performed By: #### H S TROP, CBC, DDIMER, PP, MG, BMP #### [facility] [address] [place] [address] MCV (RBC) [Entitic vol] 94.5 fL Normal 80-100 [facility] Comment on above: Order Comment: Reaso n for Exam Hepatitis C Performed By: #### H S TROP, CBC, DDIMER, PP, MG, BMP #### [facility] [address] [place] [address] Mean Corpuscular HGB Conc 33.6 g/dL Normal 32.0-35.0 [facility] Comment on above: Order Comment: Reaso n for Exam Hepatitis C Performed By: #### H S TROP, CBC, DDIMER, PP, MG, BMP #### [facility] [address] [place] [address] Monocytes (Bld) [#/Vol] 0.5 10*3/uL Normal 0.0-0.8 [facility] Comment on above: Order Comment: Reaso n for Exam Hepatitis C Performed By: #### H S TROP, CBC, DDIMER, PP, MG, BMP #### [facility] [address] [place] [address] Monocytes/100 WBC (Bld) 6.0 % Normal . [facility] Comment on above: Order Comment: Reaso n for Exam Hepatitis C Performed By: #### H S TROP, CBC, DDIMER, PP, MG, BMP #### [facility] [address] [place] [address] Neutrophils (Bld) [#/Vol] 4.0 10*3/uL Normal 1.8-7.7 [facility] Comment on above: Order Comment: Reaso n for Exam Hepatitis C Performed By: #### H S TROP, CBC, DDIMER, PP, MG, BMP #### [facility] [address] [place] [address] Neutrophils/100 WBC (Bld) 52.6 % Normal . [facility] Comment on above: Order Comment: Reaso n for Exam Hepatitis C Performed By: #### H S TROP, CBC, DDIMER, PP, MG, BMP #### [facility] [address] [place] [address] [place] NRBC% 0.5 /100{WBC} Normal 0-0.5 [facility] Comment on above: Order Comment: Reaso n for Exam Hepatitis C Performed By: #### H S TROP, CBC, DDIMER, PP, MG, BMP #### [facility] [address] [place] [address] Platelet mean volume (Bld) [Entitic vol] 7.9 fL Normal 6.3-10.7 [facility] Comment on above: Order Comment: Reaso n for Exam Hepatitis C Performed By: #### H S TROP, CBC, DDIMER, PP, MG, BMP #### [facility] [address] [place] [address] [place] Platelets (Bld) [#/Vol] 390 10*3/uL Normal 150-450 [facility] Comment on above: Order Comment: Reaso n for Exam Hepatitis C Performed By: #### H S TROP, CBC, DDIMER, PP, MG, BMP #### [facility] [address] RBC (Bld) [#/Vol] 4.67 10*6/uL Normal 3.60-5.00 [facility] Comment on above: Order Comment: Reaso n for Exam Hepatitis C Performed By: #### H S TROP, CBC, DDIMER, PP, MG, BMP #### [facility] [address] WBC (Bld) [#/Vol] 7.6 10*3/uL Normal 3.8-11.6 [facility] Comment on above: Order Comment: Reaso n for Exam Hepatitis C Performed By: #### H S TROP, CBC, DDIMER, PP, MG, BMP #### [facility] [address] Basophils (Bld) [#/Vol] 0.180528431 10*3/uL Normal 0.0-0.2 10*3/uL [facility] Basophils/100 WBC (Bld) 1.200 % . % [facility] Other Eosinophils (Bld) [#/Vol] 0.567010891 10*3/uL Normal 0.0-0.45 10*3/uL [facility] Other Eosinophils/100 WBC (Bld) 1.200 % . % [facility] Other Erythrocyte distribution width (RBC) [Ratio] 13.200 % Normal 11.9-15.3 % [facility] Other Hematocrit (Bld) [Volume fraction] 44.200 % Normal 34.0-46.4 % [facility] Other Hemoglobin (Bld) [Mass/Vol] 14.311543 g/dL Normal 11.8-15.4 g/dL [facility] Other Lymphocytes (Bld) [#/Vol] 3.892828485 10*3/uL Normal 1.00-4.8 10*3/uL [facility] Other Lymphocytes/100 WBC (Bld) 39.000 % . % [facility] Other MCH (RBC) [Entitic mass] 31.8000 pg Normal 24.7-34.3 pg [facility] Other MCV (RBC) [Entitic vol] 94.5000 fL Normal 80-100 fL [facility] Other Monocytes (Bld) [#/Vol] 0.832073013 10*3/uL Normal 0.0-0.8 10*3/uL [facility] Other Monocytes/100 WBC (Bld) 6.000 % . % [facility] Other Neutrophils (Bld) [#/Vol] 4.950547744 10*3/uL Normal 1.8-7.7 10*3/uL [facility] Other Neutrophils/100 WBC (Bld) 52.600 % . % [facility] Other Platelet mean volume (Bld) [Entitic vol] 7.9000 fL Normal 6.3-10.7 fL [facility] Other WBC (Bld) [#/Vol] 7.595357676 10*3/uL Normal 3.8 -11.6 10*3/uL [facility] Other Complete Blood Count Auto Diff 7.6 10*3/uL Normal 3.8-11.6 10*3/uL [facility] Other Complete Blood Count Auto Diff 33.6 g/dL Normal 32.0-35.0 g/dL [facility] [employer] Other Complete Blood Count Auto Diff 0.5 /100{WBC} Normal 0-0.5 /100{WBC} [facility] [employer] Other Eosinophils Auto (Bld) [#/Vo l]Ordered By: Imad Asaad on 04-24-2022 Eosinophils (Bld) [#/Vol] 0.1 10*3/uL 0.0-0.45 [facility] Eosinophils/100 WBC Auto (Bl d)Ordered By: Imad Asaad on 04-24-2022 Eosinophils/100 WBC (Bld) 1.2 % . [facility] Erythrocyte distribution wid th Auto (RBC) [Ratio]Ordered By: Imad Asaad on 04-24-2022 Erythrocyte distribution width (RBC) [Ratio] 13.2 % 11.9-15.3 [facility] Erythrocytes [#/volume] in B lood by Automated countOrdered By: Imad Asaad on 04-24-2022 RBC (Bld) [#/Vol] 4.67 10*6/uL 3.60-5.00 [facility] Globulin Calc (S) [Mass/Vol] Ordered By: Imad Asaad on 04-24-2022 Globulin (S) [Mass/Vol] 3.9 g/dL [facility] HCV genotyping ser/plas ampl ified probeOrdered By: ad [facility]-2022 HCV genotype MOISES+probe Nom 1a . [facility] HIV 1/O/2 Antigen/Antibodyon 04-24-2022 HIV Screen 4th Generation Non-Reactive Normal Non Reactive [facility] Comment on above: Order Comment: Reaso n for Exam Hepatitis C Result Comment: HIV Negative HIV-1/HIV-2 antibodies and HIV-1 p24 antigen were NOT detected. There is no laboratory evidence of HIV infection. Performed at: [address] [id number] Vendor Management Specialist: Adis Bhatia PhD, Phone: [phone] PERFORMED BY: [address] [address] PATHOLOGIST FOOD AND BEVERAGE COORDINATOR LEE CARDOSO M.D. Performed By: #### H S TROP, CBC, DDIMER, PP, MG, BMP #### [facility] [address] HIV 1/O/2 Antigen/Antibody Non-Reactive . [facility] Other HIV 1 and HIV-2 antibody ass ay with HIV-1 p24 antigen detectionOrdered By: Imad Asaad on 04-24-2022 HIV 1+2 Ab+HIV1 p24 Ag IA Ql Non-Reactive Non Reactive [facility] Comment on above: HIV NegativeHIV-1/HI V-2 antibodies and HIV-1 p24 antigen were NOTdetected. There is no laboratory evidence of HIV infection.Performed at: [facility] [employer] [id number] Director: Adis Bhatia PhD, Phone: [phone] Hematocrit Auto (Bld) [Volum e fraction]Ordered By: Imad Asaad on 04-24-2022 Hematocrit (Bld) [Volume fraction] 44.2 % 34.0-46.4 [facility] Hemoglobin [Mass/volume] in BloodOrdered By: Imad Asaad on 04-24-2022 Hemoglobin (Bld) [Mass/Vol] 14.8 g/dL 11.8-15.4 [facility] Hep B Real-Time PCR, Quanton 04-24-2022 HBV As IU/mL Not detected Normal . [facility] Comment on above: Order Comment: Reaso n for Exam Hepatitis C Reason for Exam Hepatitis B infection without delta agent with hepatic coma, Performed By: #### H S TROP, CBC, DDIMER, PP, MG, BMP #### [facility] [address] [place] [id number] [facility] Log10 HBV (As IU/mL) Normal . [facility] Comment on above: Order Comment: Reaso n for Exam Hepatitis C Reason for Exam Hepatitis B infection without delta agent with hepatic coma, Result Comment: Resu lt Units: log10 IU/mL Unable to calculate result since non-numeric result obtained for component test. Performed By: #### H S TROP, CBC, DDIMER, PP, MG, BMP #### [facility] [address] [place] [address] [facility] Hep B Real-Time PCR, Quant Not detected . [facility] [employer] Other Hep B Real-Time PCR, Quant [facility] [employer] Other Hep C Genotyping Non Reflexo n 04-24-2022 Hepatitis C Genotype 1a Normal . [facility] Comment on above: Order Comment: Reaso n for Exam Hepatitis C Reason for Exam Hepatitis B infection without delta agent with hepatic coma, Performed By: #### H S TROP, CBC, DDIMER, PP, MG, BMP #### [facility] [address] Please Note: Normal . [facility] Comment on above: Order Comment: Reaso n for Exam Hepatitis C Reason for Exam Hepatitis B infection without delta agent with hepatic coma, Result Comment: This test was developed and its performance characteristics determined by [employer]. It has not been cleared or approved by the U.S. Food and Drug Administration. The FDA has determined that such clearance or approval is not necessary. This test is used for clinical purposes. It should not be regarded as investigational or for research. Performed at: [address] [id number] Vendor Management Specialist: Gunnar Shanks MD, Phone: [phone] Performed By: #### H S TROP, CBC, DDIMER, PP, MG, BMP #### [facility] [address] [place] [address] [facility] Hep C Genotyping Non Reflex 1a . [facility] [employer] Other Hep C RT-PCR, Qnt (Non-Graph )on 04-24-2022 HCV Log10 5.912 Normal . [facility] Comment on above: Order Comment: Reaso n for Exam Hepatitis C Reason for Exam Hepatitis B infection without delta agent with hepatic coma, Result Comment: Resu lt Units: log10 IU/mL Performed By: #### H S TROP, CBC, DDIMER, PP, MG, BMP #### [facility] [address] [place] [id number] [facility] Hepatitis C Quantitation [id number] Normal . [facility] Comment on above: Order Comment: Reaso n for Exam Hepatitis C Reason for Exam Hepatitis B infection without delta agent with hepatic coma, Performed By: #### H S TROP, CBC, DDIMER, PP, MG, BMP #### [address] Test Information: Normal . [facility] Comment on above: Order Comment: Reaso n for Exam Hepatitis C Reason for Exam Hepatitis B infection without delta agent with hepatic coma, Result Comment: The quantitative range of this assay is 15 IU/mL to 100 million IU/mL. Performed By: #### H S TROP, CBC, DDIMER, PP, MG, BMP #### [address] Result Comment: The reportable range for this assay is 10 IU/mL to 1 billion IU/mL. Performed at: [address] [id number] Vendor Management Specialist: Gunnar Shanks MD, Phone: [phone] PERFORMED BY: [place] [address] PATHOLOGIST FOOD AND BEVERAGE COORDINATOR LEE CARDOSO M.D. Hep C RT-PCR, Qnt (Non-Graph) [id number] . [facility] [employer] Other Hep C RT-PCR, Qnt (Non-Graph) 5.918 . [facility] [employer] Other Hepatic Panelon 04-24-2022 Albumin [Mass/Vol] 4.2 g/dL Normal 3.5-5.7 [facility] Comment on above: Order Comment: Reaso n for Exam Hepatitis C Performed By: #### H S TROP, CBC, DDIMER, PP, MG, BMP #### [address] Albumin/Globulin [Mass ratio] 1.1 {ratio} Normal [facility] Comment on above: Order Comment: Reaso n for Exam Hepatitis C Performed By: #### H S TROP, CBC, DDIMER, PP, MG, BMP #### [address] ALP [Catalytic activity/Vol] 85 U/L Normal 34-104 [facility] Comment on above: Order Comment: Reaso n for Exam Hepatitis C Result Comment: PERF ORMED BY: [place] [address] PATHOLOGIST FOOD AND BEVERAGE COORDINATOR LEE CARDOSO M.D. Performed By: #### H S TROP, CBC, DDIMER, PP, MG, BMP #### [facility] [address] [place] [address] ALT [Catalytic activity/Vol] 48 U/L Normal 7-52 [facility] Comment on above: Order Comment: Reaso n for Exam Hepatitis C Performed By: #### H S TROP, CBC, DDIMER, PP, MG, BMP #### [facility] [address] [place] [address] AST [Catalytic activity/Vol] 48 U/L High 13-39 [facility] Comment on above: Order Comment: Reaso n for Exam Hepatitis C Performed By: #### H S TROP, CBC, DDIMER, PP, MG, BMP #### [facility] [address] [place] [address] [place] Bilirubin [Mass/Vol] 0.3 mg/dL Normal 0.3-1.0 [facility] Comment on above: Order Comment: Reaso n for Exam Hepatitis C Performed By: #### H S TROP, CBC, DDIMER, PP, MG, BMP #### [facility] [address] [place] [address] [place] Bilirubin,Indirect 0.2 mg/dL Normal [facility] Comment on above: Order Comment: Reaso n for Exam Hepatitis C Performed By: #### H S TROP, CBC, DDIMER, PP, MG, BMP #### [facility] [address] [place] [address] [place] Bilirubin.indirect [Mass/Vol] 0.10 mg/dL Normal 0.03-0.18 [facility] Comment on above: Order Comment: Reaso n for Exam Hepatitis C Performed By: #### H S TROP, CBC, DDIMER, PP, MG, BMP #### [facility] [address] [place] [address] [place] Globulin (S) [Mass/Vol] 3.9 g/dL Normal [facility] Comment on above: Order Comment: Reaso n for Exam Hepatitis C Performed By: #### H S TROP, CBC, DDIMER, PP, MG, BMP #### [facility] [address] [place] [address] [facility] Protein [Mass/Vol] 8.1 g/dL Normal 6.4-8.9 [facility] Comment on above: Order Comment: Reaso n for Exam Hepatitis C Performed By: #### H S TROP, CBC, DDIMER, PP, MG, BMP #### [facility] [address] [place] [address] [place] Albumin [Mass/Vol] 4.778735 g/dL Normal 3.5-5.7 g/dL N [facility] [employer] Other Bilirubin [Mass/Vol] 0.6200616 mg/dL Normal 0.3- 1.0 mg/dL [facility] Other Bilirubin.indirect [Mass/Vol] 0.82079370 mg/dL Normal 0.03-0.18 mg/dL [facility] Other Protein [Mass/Vol] 8.075946 g/dL Normal 6.4-8.9 g/dL N [employer] Other Hepatic Panel 0.2 mg/dL [facility] Other Hepatic Panel 3.9 g/dL [facility] Other Hepatitis A Antibody Totalon 04-24-2022 Hepatitis A Antibody Total Negative Normal Negative [facility] Comment on above: Order Comment: Reaso n for Exam Hepatitis C Reason for Exam Hepatitis B infection without delta agent with hepatic coma, Result Comment: Perf ormed at: CB - [facility] [id number] [place], [place] [id number] Vendor Management Specialist: Adis Bhatia PhD, Phone: [phone] Performed By: #### H S TROP, CBC, DDIMER, PP, MG, BMP #### [facility] [address] Hepatitis A Antibody Total Negative Negative [facility] [employer] Other Hepatitis A virus Ab [Presen ce] in Serum by ImmunoassayOrdered By: Kanchan Ruelasad on 04-24-2022 HAV Ab IA Ql (S) Negative Negative [facility] Comment on above: Performed at: - [address] [id number] Director: Adis Bhatia PhD, Phone: [phone] Hepatitis B Core Antibodyon 04-24-2022 Hepatitis B Core Antibody Positive Critically abnormal Negative [facility] Comment on above: Order Comment: Reaso n for Exam Hepatitis C Reason for Exam Hepatitis B infection without delta agent with hepatic coma, Performed By: #### H S TROP, CBC, DDIMER, PP, MG, BMP #### [facility] [address] [place] [id number] [facility] Hepatitis B Core Antibody Positive Critically abnormal Negative [facility] [employer] Other Hepatitis B Surface Antibody on 04-24-2022 Hepatitis B Surface Antibody Non-Reactive Normal . [facility] Comment on above: Order Comment: Reaso n for Exam Hepatitis C Reason for Exam Hepatitis B infection without delta agent with hepatic coma, Result Comment: Non Reactive: Inconsistent with immunity, less than 10 mIU/mL Reactive: Consistent with immunity, greater than 9.9 mIU/mL Performed By: #### H S TROP, CBC, DDIMER, PP, MG, BMP #### [facility] [address] [place] [id number] [place] Hepatitis B Surface Antigeno n 04-24-2022 HBsAg Screen Negative Normal Negative [facility] Comment on above: Order Comment: Reaso n for Exam Hepatitis C Reason for Exam Hepatitis B infection without delta agent with hepatic coma, Performed By: #### H S TROP, CBC, DDIMER, PP, MG, BMP #### [facility] [address] [id number] [facility] Hepatitis B virus surface Ag [Presence] in Serum or Plasma by ImmunoassayOrdered By: Kanchan Ruelasad on 04-24-2022 HBV surface Ag IA Ql Negative Negative [facility] Hepatitis C virus RNA [log u nits/volume] (viral load) in Serum or Plasma by MOISES withOrdered By: Kanchan Sanchez on 04-24-2022 HCV RNA MOISES+probe [Log units/Vol] 633675 [IU]/mL . [facility] HCV RNA MOISES+probe [Log units/Vol] 5.912 . [facility] Comment on above: Result Units: log10 IU/mL Hepatitis Delta Antibodyon 0 04-24-2022 Hepatitis Delta Antibody Normal [facility] Comment on above: Order Comment: Reaso n for Exam Hepatitis B infection without delta agent with hepatic coma, Result Comment: See report. Scanned copy available in EMR. PERFORMED BY: [facility] [address] [place] [address] PATHOLOGIST FOOD AND BEVERAGE COORDINATOR LEE CARDOSO M.D. Performed By: #### H S TROP, CBC, DDIMER, PP, MG, BMP #### [facility] [address] Leukocytes [#/volume] correc jose for nucleated erythrocytes in Blood by Automated counOrdered By: Impepe Sanchez on 04-24-2022 WBC corrected for nucl RBC Auto (Bld) [#/Vol] 7.6 10*3/uL 3.8-11.6 [facility] Lymphocytes Auto (Bld) [#/Vo l]Ordered By: Imad Surajad on 04-24-2022 Lymphocytes (Bld) [#/Vol] 3.0 10*3/uL 1.00-4.8 [facility] Lymphocytes/100 WBC Auto (Bl d)Ordered By: Imad Asaad on 04-24-2022 Lymphocytes/100 WBC (Bld) 39.0 % . [facility] MCH Auto (RBC) [Entitic mass ]Ordered By: Imad Asaad on 04-24-2022 MCH (RBC) [Entitic mass] 31.8 pg 24.7-34.3 [facility] MCHC Auto (RBC) [Mass/Vol]Or dered By: Imad Asaad on 04-24-2022 MCHC (RBC) [Mass/Vol] 33.6 g/dL 32.0-35.0 [facility] MCV Auto (RBC) [Entitic vol] Ordered By: Imad Asaad on 04-24-2022 MCV (RBC) [Entitic vol] 94.5 fL 80-100 [facility] Monocytes Auto (Bld) [#/Vol] Ordered By: Imad Asaad on 04-24-2022 Monocytes (Bld) [#/Vol] 0.5 10*3/uL 0.0-0.8 [facility] Monocytes/100 WBC Auto (Bld) Ordered By: Imad Asaad on 04-24-2022 Monocytes/100 WBC (Bld) 6.0 % . [facility] Neutrophils Auto (Bld) [#/Vo l]Ordered By: ad Asaad on 04-24-2022 Neutrophils (Bld) [#/Vol] 4.0 10*3/uL 1.8-7.7 [facility] Neutrophils/100 WBC Auto (Bl d)Ordered By: Imad Asaad on 04-24-2022 Neutrophils/100 WBC (Bld) 52.6 % . [facility] No Panel InformationOrdered By: Imad Asaad on 04-24-2022 Hepatitis B Core Total Antibody Positive Negative [facility] Hepatitis B DNA Test Information See comment . [facility] Comment on above: The reportable range for this assay is 10 IU/mL to 1billion IU/mL.Performed at: [facility] [id number] Director: Gunnar Shanks MD, Phone: [phone] Hepatitis C RNA (PCR) Interpret See comment . [facility] Comment on above: The quantitative ran ge of this assay is 15 IU/mL to 100million IU/mL. Hepatitis Delta Antibody See comment [facility] Comment on above: See report. Scanned copy available in EMR. Herpes Simplex Virus Note 2 See comment . [facility] Comment on above: This test was develo ped and its performance characteristicsdetermined by [employer]. It has not been cleared or approvedby the U.S. Food and Drug Administration.The FDA has determined that such clearance or approval isnot necessary. This test is used for clinical purposes. Itshould not be regarded as investigational or for research.Performed at: [facility] [id number] [place], [place] [id number] Director: Gunnar Shanks MD, Phone: [phone] Nucleated erythrocytes [Pres ence] in Blood by Automated countOrdered By: Impepe Sanchez on 04-24-2022 Nucleated RBC Auto Ql (Bld) 0.5 /100{WBC} 0-0.5 [facility] Platelet mean volume Auto (B ld) [Entitic vol]Ordered By: Imad Asaad on 04-24-2022 Platelet mean volume (Bld) [Entitic vol] 7.9 fL 6.3-10.7 [facility] Platelets [#/volume] in Bloo d by Automated countOrdered By: Imad Asaad on 04-24-2022 Platelets (Bld) [#/Vol] 390 10*3/uL 150-450 [facility] Protein [Mass/volume] in Ser um or PlasmaOrdered By: Imad Surajad on 04-24-2022 Protein [Mass/Vol] 8.1 g/dL 6.4-8.9 [facility] Serum hepatitis B virus surf lady antibody detectionOrdered By: Impepe Sanchez on 04-24-2022 HBV surface Ab Ql (S) Non-Reactive . [facility] Comment on above: Non Reactive: Incons istent with immunity, less than 10 mIU/mL Reactive: Consistent with immunity, greater than 9.9 mIU/mL Serum or plasma albumin/glob ulin mass ratioOrdered By: pepe Sanchez on 04-24-2022 Albumin/Globulin [Mass ratio] 1.1 {ratio} [facility] Serum or plasma hepatitis B virus DNA measurement (units/volume) (viral load) by probOrdered By: Impepe Ruelasad on 04-24-2022 HBV DNA MOISES+probe Qn Not detected . [facility] Serum or plasma hepatitis B virus DNA viral load by probe and target amplification meOrdered By: ad Asaad on 04-24-2022 HBV DNA MOISES+probe [#/Vol] N/A [facility] HBV DNA MOISES+probe [Log units/Vol] See comment . [facility] Comment on above: Result Units: log10 IU/mLUnable to calculate result since non-numeric resultobtained for component test. Serum or plasma non-glucuron idated bilirubin measurement (mass/volume)Ordered By: Kanchan Sanchez on 04-24-2022 Bilirubin.indirect [Mass/Vol] 0.2 mg/dL [facility] WBC Auto (Bld) [#/Vol]Ordere d By: Kanchan Sanchez on 04-24-2022 WBC (Bld) [#/Vol] 7.6 10*3/uL 3.8-11.6 [facility] ED Note-Physicianon 04-13-19 ED Note-Physician [id number]: [id number] Normal [facility] Activated partial thrombopla stin time (aPTT) in platelet poor plasma by coagulation aOrdered By: Pavel Yao on 04-11-2022 aPTT Coag (PPP) [Time] 26.1 s 25.1-36.5 [facility] Amphetamine Screen Ql (U)Ord ered By: Pavel Yao on 04-11-2022 Amphetamines Ql (U) Negative Negative [facility] Automated erythrocytes count in urine sediment (number/area)Ordered By: Pavel Yao on 04-11-2022 RBC Auto (Urine sed) [#/Area] 1-2 [HPF] 0-4 [facility] Automated leukocytes count i n urine sediment (number/area)Ordered By: Pavel Yao on 04-11-2022 WBC Auto (Urine sed) [#/Area] 1-2 [HPF] 0-4 [facility] Automated urine hyaline cast s count (number/volume)Ordered By: Pavel Yao on 04-11-2022 Hyaline casts Auto (U) [#/Vol] 1-2 [LPF] 0-1 [facility] Barbiturates [Presence] in U rineOrdered By: Pavel Yao on 04-11-2022 Barbiturates Ql (U) Negative Negative [facility] Basic Metabolic Panelon Anion gap [Moles/Vol] 19.3 mmol/L High 6.0-15.0 [facility] Comment on above: Performed By: #### H S TROP, CBC, DDIMER, PP, MG, BMP #### [facility] [address] [place] [address] Calcium [Mass/Vol] 8.7 mg/dL Normal 8.2-10.2 [facility] Comment on above: Performed By: #### H S TROP, CBC, DDIMER, PP, MG, BMP #### [address] Chloride [Moles/Vol] 100 mmol/L Normal 95-114 [facility] Comment on above: Performed By: #### H S TROP, CBC, DDIMER, PP, MG, BMP #### [address] CO2 [Moles/Vol] 20.4 mmol/L Low 22.0-30.0 [facility] Comment on above: Performed By: #### H S TROP, CBC, DDIMER, PP, MG, BMP #### [address] Creatinine [Mass/Vol] 0.44 mg/dL Normal 0.44-1.03 [facility] Comment on above: Performed By: #### H S TROP, CBC, DDIMER, PP, MG, BMP #### [address] Creatinine Clr Calc Pharmacy 177.08 [facility] Comment on above: Performed By: #### H S TROP, CBC, DDIMER, PP, MG, BMP #### [address] Estimated GFR ( Faye > 60 [facility] Comment on above: Result Comment: GFR estimated reference range: According to KDOQI guidelines, <60 ml/min/1.73m2 is sufficient to diagnose a patient with chronic kidney disease. Performed By: #### H S TROP, CBC, DDIMER, PP, MG, BMP #### [address] Estimated GFR (Non- Am > 60 [facility] Comment on above: Performed By: #### H S TROP, CBC, DDIMER, PP, MG, BMP #### [facility] [address] [place] [address] [place] Glucose [Mass/Vol] 60 mg/dL Low 70-100 [facility] Comment on above: Result Comment: [place] Glucose Reference Range is dependent on time and content of last meal. Glucose of more than 200 mg/dL in a nonstressed, ambulatory subject supports the diagnosis of Diabetes Mellitus. ADA recommended reference range Performed By: #### H S TROP, CBC, DDIMER, PP, MG, BMP #### [facility] [address] Potassium [Moles/Vol] 3.7 mmol/L Normal 3.5-5.1 [facility] Comment on above: Performed By: #### H S TROP, CBC, DDIMER, PP, MG, BMP #### [facility] [address] Sodium [Moles/Vol] 136 mmol/L Normal 136-146 [facility] Comment on above: Performed By: #### H S TROP, CBC, DDIMER, PP, MG, BMP #### [facility] [address] Urea nitrogen [Mass/Vol] 6 mg/dL Low 9-23 [facility] Comment on above: Performed By: #### H S TROP, CBC, DDIMER, PP, MG, BMP #### [address] Basophils Auto (Bld) [#/Vol] Ordered By: Pavel Yao on 04-11-2022 Basophils (Bld) [#/Vol] 0.0 10*3/uL 0.0-0.2 [facility] Basophils/100 WBC Auto (Bld) Ordered By: Pavel Yao on 04-11-2022 Basophils/100 WBC (Bld) 0.3 % . [facility] Benzodiazepines [Presence] i n UrineOrdered By: Pavel Yao on 04-11-2022 Benzodiazepines Ql (U) Negative Negative [facility] Bilirubin Test strip Ql (U)O rdered By: Pavel Yao on 04-11-2022 Bilirubin Ql (U) 1+ Negative [facility] Calcium [Mass/volume] in Ser um or PlasmaOrdered By: Pavel Yao on 04-11-2022 Calcium [Mass/Vol] 8.7 mg/dL 8.2-10.2 [facility] Cannabinoids [Presence] in U rine by Screen methodOrdered By: Pavel Yao on 04-11-2022 Cannabinoids Screen Ql (U) Negative Negative [facility] Comment on above: These are unconfirme d results and should not be used for legal purposes. Drug Cut-Off Concentration: AMPH 1000 ng/mL JANELL 200 ng/mL JAMES 200 ng/mL COCM 300 ng/mL OP 300 ng/mL PCP 25 ng/mL THC 20 ng/mL Carbon dioxide, total [Moles /volume] in Serum or PlasmaOrdered By: Pavel Yao on 04-11-2022 CO2 [Moles/Vol] 20.4 mmol/L 22.0-30.0 [facility] Casts typing in urine sedime nt by light microscopyOrdered By: Pavel Yao on 04-11-2022 Casts LM Nom (Urine sed) None seen [LPF] None Seen [facility] Chloride [Moles/volume] in S marbella or PlasmaOrdered By: Pavel Yao on 04-11-2022 Chloride [Moles/Vol] 100 mmol/L 95-114 [facility] Coagulation Profileon 2022 aPTT Coag (Bld) [Time] 26.1 s Normal 25.1-36.5 [facility] Comment on above: Performed By: #### H S TROP, CBC, DDIMER, PP, MG, BMP #### [facility] [address] INR Coag (PPP) [Relative time] 1.0 {INR} Normal [facility] Comment on above: Result Comment: INR Therapeutic Range A) Pre- and Peroperative OAT started two weeks before surgery. NOT HIP SURGERY: 1.5 - 2.5 HIP SURGERY: 2 - 3 B) Primary and secondary prevention of venous THROMBOSIS: 2 - 3 C) Active venous thrombosis, pulmonary embolism and prevention of recurrent venous thrombosis: 2 - 3 D) Prevention of arterial thromboembolism including patients with mechanical heart valves: 3 - 4.5 Performed By: #### H S TROP, CBC, DDIMER, PP, MG, BMP #### [address] PT Coag (PPP) [Time] 12.1 s Normal 9.0-12.9 [facility] Comment on above: Performed By: #### H S TROP, CBC, DDIMER, PP, MG, BMP #### [address] Color Auto (U)Ordered By: Venkatesh Yao on 04-11-2022 Color (U) Dark yellow Yellow [facility] Complete Blood Count Auto Di ffon 04-11-2022 Basophils (Bld) [#/Vol] 0.0 10*3/uL Normal 0.0-0.2 [facility] Comment on above: Result Comment: PERF ORMED BY: [place] [address] PATHOLOGIST FOOD AND BEVERAGE COORDINATOR LEE CARDOSO M.D. Performed By: #### H S TROP, CBC, DDIMER, PP, MG, BMP #### [address] Basophils/100 WBC (Bld) 0.3 % Normal . [facility] Comment on above: Performed By: #### H S TROP, CBC, DDIMER, PP, MG, BMP #### [address] Eosinophils (Bld) [#/Vol] 0.0 10*3/uL Normal 0.0-0.45 [facility] Comment on above: Performed By: #### H S TROP, CBC, DDIMER, PP, MG, BMP #### [address] Eosinophils/100 WBC (Bld) 0.5 % Normal . [facility] Comment on above: Performed By: #### H S TROP, CBC, DDIMER, PP, MG, BMP #### [address] Erythrocyte distribution width (RBC) [Ratio] 13.5 % Normal 11.9-15.3 [facility] Comment on above: Performed By: #### H S TROP, CBC, DDIMER, PP, MG, BMP #### [address] Hematocrit (Bld) [Volume fraction] 42.4 % Normal 34.0-46.4 [facility] Comment on above: Performed By: #### H S TROP, CBC, DDIMER, PP, MG, BMP #### [address] Hemoglobin (Bld) [Mass/Vol] 14.4 g/dL Normal 11.8-15.4 [facility] Comment on above: Performed By: #### H S TROP, CBC, DDIMER, PP, MG, BMP #### [address] Lymphocytes (Bld) [#/Vol] 1.6 10*3/uL Normal 1.00-4.8 [facility] Comment on above: Performed By: #### H S TROP, CBC, DDIMER, PP, MG, BMP #### [address] Lymphocytes/100 WBC (Bld) 19.9 % Normal . [facility] Comment on above: Performed By: #### H S TROP, CBC, DDIMER, PP, MG, BMP #### [address] MCH (RBC) [Entitic mass] 31.5 pg Normal 24.7-34.3 [facility] Comment on above: Performed By: #### H S TROP, CBC, DDIMER, PP, MG, BMP #### [address] MCV (RBC) [Entitic vol] 93.0 fL Normal 80-100 [facility] Comment on above: Performed By: #### H S TROP, CBC, DDIMER, PP, MG, BMP #### [address] Mean Corpuscular HGB Conc 33.9 g/dL Normal 32.0-35.0 [facility] Comment on above: Performed By: #### H S TROP, CBC, DDIMER, PP, MG, BMP #### [facility] [address] [place] [address] Monocytes (Bld) [#/Vol] 0.4 10*3/uL Normal 0.0-0.8 [facility] Comment on above: Performed By: #### H S TROP, CBC, DDIMER, PP, MG, BMP #### [address] Monocytes/100 WBC (Bld) 18.35 % Normal 0.00-20.00 [facility] Comment on above: Performed By: #### H S TROP, CBC, DDIMER, PP, MG, BMP #### [address] Monocytes/100 WBC (Bld) 5.2 % Normal . [facility] Comment on above: Performed By: #### H S TROP, CBC, DDIMER, PP, MG, BMP #### [address] Neutrophils (Bld) [#/Vol] 5.9 10*3/uL Normal 1.8-7.7 [facility] Comment on above: Performed By: #### H S TROP, CBC, DDIMER, PP, MG, BMP #### [address] Neutrophils/100 WBC (Bld) 74.1 % Normal . [facility] Comment on above: Performed By: #### H S TROP, CBC, DDIMER, PP, MG, BMP #### [facility] [address] [place] [address] [place] NRBC% 0.1 /100{WBC} Normal 0-0.5 [facility] Comment on above: Performed By: #### H S TROP, CBC, DDIMER, PP, MG, BMP #### [address] Platelet mean volume (Bld) [Entitic vol] 8.2 fL Normal 6.3-10.7 [facility] Comment on above: Performed By: #### H S TROP, CBC, DDIMER, PP, MG, BMP #### [facility] [address] Platelets (Bld) [#/Vol] 167 10*3/uL Normal 150-450 [facility] Comment on above: Performed By: #### H S TROP, CBC, DDIMER, PP, MG, BMP #### [facility] [address] RBC (Bld) [#/Vol] 4.56 10*6/uL Normal 3.60-5.00 [facility] Comment on above: Performed By: #### H S TROP, CBC, DDIMER, PP, MG, BMP #### [facility] [address] WBC (Bld) [#/Vol] 8.0 10*3/uL Normal 3.8-11.6 [facility] Comment on above: Performed By: #### H S TROP, CBC, DDIMER, PP, MG, BMP #### [facility] [address] Creatinine and Glomerular fi ltration rate.predicted panel (S/P/Bld)Ordered By: Pavel Yao on 04-11-2022 Creatinine [Mass/Vol] 0.44 mg/dL 0.44-1.03 [facility] D-Dimer High Sensitivityon 0 04-11-2022 D-Dimer High Sensitivity 231 ng/mL Normal 0-243 [facility] Comment on above: Result Comment: The reference range for D-dimer is <243 ng/mL D-dimer units. D-dimer results must be used in conjunction with a clinical pretest probability (PTP) assessment model for deep vein thrombosis (DVT) and pulmonary embolism (PE). Results <230 ng/mL d-dimer units can be used as a negative predictor in patients with low or moderate probability for DVT/PE. Results above the exclusion threshold of 230 ng/ml D-dimer units for DVT/PE may indicate the need for further diagnostic testing. D-Dimer can be increased in hospitalized patients due to co-morbid conditions. PERFORMED BY: [place] [address] PATHOLOGIST FOOD AND BEVERAGE COORDINATOR LEE CARDOSO M.D. Performed By: #### H S TROP, CBC, DDIMER, PP, MG, BMP #### [facility] [address] [place] [address] Dipstick and Microscopicon 0 04-11-2022 Appearance (U) Cloudy Critically abnormal Clear [facility] Comment on above: Order Comment: Name Collection Type:: Clean-Voided Midstream Performed By: #### E ODALIS, CMP, CBC #### [address] Bacteria,Urine None Seen Normal None Seen [facility] Comment on above: Order Comment: Name Collection Type:: Clean-Voided Midstream Performed By: #### E ODALIS, CMP, CBC #### [place] [address] [place] Bilirubin,Urine 1+ High Negative [facility] Comment on above: Order Comment: Name Collection Type:: Clean-Voided Midstream Performed By: #### E ODALIS, CMP, CBC #### [address] Color (U) Dark Yellow Critically abnormal Yellow [facility] Comment on above: Order Comment: Name Collection Type:: Clean-Voided Midstream Performed By: #### E ODALIS, CMP, CBC #### [address] Glucose Ql (U) Normal Normal Normal [facility] Comment on above: Order Comment: Name Collection Type:: Clean-Voided Midstream Performed By: #### E ODALIS, CMP, CBC #### [place] [address] [place] Hyaline Casts,Urine 1-2 High 0-1 [facility] Comment on above: Order Comment: Name Collection Type:: Clean-Voided Midstream Performed By: #### E ODALIS, CMP, CBC #### [facility] [address] [place] [address] Ketones Ql (U) 3+ High Negative [facility] Comment on above: Order Comment: Name Collection Type:: Clean-Voided Midstream Performed By: #### E ODALIS, CMP, CBC #### [address] Leukocyte esterase Test strip Ql (U) Negative Normal Negative [facility] Comment on above: Order Comment: Name Collection Type:: Clean-Voided Midstream Performed By: #### E ODALIS, CMP, CBC #### [address] Nitrite,Urine Negative Normal Negative [facility] Comment on above: Order Comment: Name Collection Type:: Clean-Voided Midstream Performed By: #### E ODALIS, CMP, CBC #### [address] Occult Blood,Urine 3+ High Negative [facility] Comment on above: Order Comment: Name Collection Type:: Clean-Voided Midstream Performed By: #### E ODALIS, CMP, CBC #### [address] Other Casts,Urine None Seen Normal None Seen [facility] Comment on above: Order Comment: Name Collection Type:: Clean-Voided Midstream Performed By: #### E ODALIS, CMP, CBC #### [address] pH (U) 6.5 [pH] Normal 5.0-9.0 [facility] Comment on above: Order Comment: Name Collection Type:: Clean-Voided Midstream Performed By: #### E ODALIS, CMP, CBC #### [place] [address] [place] Protein (U) [Mass/Vol] 30 mg/dL High Negative [facility] Comment on above: Order Comment: Name Collection Type:: Clean-Voided Midstream Performed By: #### E ODALIS, CMP, CBC #### [place] [address] [place] RBC,Urine 1-2 Normal 0-4 [facility] Comment on above: Order Comment: Name Collection Type:: Clean-Voided Midstream Performed By: #### E ODALIS, CMP, CBC #### [facility] [address] [place] [address] Specificy [place],Urine 1.025 Normal 1.001-1.030 [facility] Comment on above: Order Comment: Name Collection Type:: Clean-Voided Midstream Performed By: #### E ODALIS, CMP, CBC #### [facility] [address] [place] [address] Squamous Epithelial Cell,Urine 5-9 High 0-2 [facility] Comment on above: Order Comment: Name Collection Type:: Clean-Voided Midstream Performed By: #### E ODALIS, CMP, CBC #### [facility] [address] [place] [address] Urobilinogen,Urine >=2 High Normal [facility] Comment on above: Order Comment: Name Collection Type:: Clean-Voided Midstream Performed By: #### E ODALIS, CMP, CBC #### [facility] [address] [place] [address] [place] WBC,Urine 1-2 Normal 0-4 [facility] Comment on above: Order Comment: Name Collection Type:: Clean-Voided Midstream Performed By: #### E ODALIS, CMP, CBC #### [facility] [address] [place] [address] [place] Drug Screen,Urineon 04-12-19 23 Amphetamine Screen,Urine Negative Normal Negative [facility] Comment on above: Performed By: #### E ODALIS, CMP, CBC #### [facility] [address] [place] [address] [place] Barbiturate Screen,Urine Negative Normal Negative [facility] Comment on above: Performed By: #### E ODALIS, CMP, CBC #### [facility] [address] [place] [address] Benzodiazepines Screen,Urine Negative Normal Negative [facility] Comment on above: Performed By: #### E ODALIS, CMP, CBC #### [facility] [address] [place] [address] Cannabinoid Screen,Urine Negative Normal Negative [facility] Comment on above: Result Comment: Thes e are unconfirmed results and should not be used for legal purposes. Drug Cut-Off Concentration: AMPH 1000 ng/mL JANELL 200 ng/mL JAMES 200 ng/mL COCM 300 ng/mL OP 300 ng/mL PCP 25 ng/mL THC 20 ng/mL PERFORMED BY: [place] [address] PATHOLOGIST FOOD AND BEVERAGE COORDINATOR LEE CARDOSO M.D. Performed By: #### E ODALIS, CMP, CBC #### [address] Cocaine Screen,Urine Negative Normal Negative [facility] Comment on above: Performed By: #### E ODALIS, CMP, CBC #### [address] Opiate Screen,Urine Negative Normal Negative [facility] Comment on above: Performed By: #### E ODALIS, CMP, CBC #### [address] Phencyclidine Screen,Urine Negative Normal Negative [facility] Comment on above: Performed By: #### E ODALIS, CMP, CBC #### [address] ECG 12 lead ECGon 04-11-2022 ECG 12 lead ECG [facility] [address] [place] [address] Electrocardiograph Report Signed Patient: Lyle Flynn MR#: [id number] : 1990 Acct:[id number] Age/Sex: 32 / F ADM Date: 04/11/22 Loc: ER Room: Type: [facility] ER Attending Dr: Ordering Provider: Pavel Yao DO Date of Service: 04/11/2203/05/907 ECG/ECG 12 lead ECG: Shortness of Breath/Dyspnea Copies to: Test Reason : Blood Pressure : / mmHG Vent. Rate : 093 BPM Atrial Rate : 093 BPM P-R Int : 136 ms QRS Dur : 080 ms QT Int : 364 ms P-R-T Axes : 073 089 058 degrees QTc Int : 452 ms Normal sinus rhythm Confirmed by Pavel YAO DO ([id number]) on 04/11/2022 10:55:42 AM Referred By: Electronically Signed By:Pavel YAO DO Transcribed By: MUS Signed By Pavel Yao DO 0 04/11/22 1055 Normal [facility] Eosinophils Auto (Bld) [#/Vo l]Ordered By: Pavel Yao on 04-11-2022 Eosinophils (Bld) [#/Vol] 0.0 10*3/uL 0.0-0.45 [facility] Eosinophils/100 WBC Auto (Bl d)Ordered By: Pavel Yao on 04-11-2022 Eosinophils/100 WBC (Bld) 0.5 % . [facility] Erythrocyte distribution wid th Auto (RBC) [Ratio]Ordered By: Pavel Yao on 04-11-2022 Erythrocyte distribution width (RBC) [Ratio] 13.5 % 11.9-15.3 [facility] Estimated glomerular filtrat ion rate (GFR) non- AmericanOrdered By: Pavel Yao on 04-11-2022 GFR/1.73 sq M.predicted among non-blacks MDRD (S/P/Bld) [Vol rate/Area] > 60 mL/Min [facility] Glucose [Mass/volume] in Ser um or PlasmaOrdered By: Pavel Yao on 04-11-2022 Glucose [Mass/Vol] 60 mg/dL 70-100 [facility] Comment on above: ADA recommended refe rence rangeRandom Glucose Reference Range is dependent on time and content of last meal. Glucose of more than 200 mg/dL in a nonstressed, ambulatory subject supports the diagnosis of Diabetes Mellitus. HCG ( test) Tammy martinez Ql (U)Ordered By: Pavel Yao on 04-11-2022 HCG ( test) Ql (U) Negative [facility] HCG,Urineon 04-11-2022 Beta HCG ( test) Ql (U) Negative Normal [facility] Comment on above: Order Comment: Name Collection Type:: Clean-Voided Midstream Result Comment: PERF ORMED BY: [facility] [address] [place] [address] PATHOLOGIST FOOD AND BEVERAGE COORDINATOR LEE CARDOSO M.D. Performed By: #### E ODALIS, CMP, CBC #### [address] Hematocrit Auto (Bld) [Volum e fraction]Ordered By: Pavel Yao on 04-11-2022 Hematocrit (Bld) [Volume fraction] 42.4 % 34.0-46.4 [facility] Hemoglobin [Mass/volume] in BloodOrdered By: Pavel Yao on 04-11-2022 Hemoglobin (Bld) [Mass/Vol] 14.4 g/dL 11.8-15.4 [facility] Ketones Auto test strip (U) [Mass/Vol]Ordered By: Pavel Yao on 04-11-2022 Ketones (U) [Mass/Vol] 3+ Negative [facility] Laboratory - Chemistry and C hemistry - challengeOrdered By: Pavel Yao on 04-11-2022 Magnesium [Mass/Vol] 1.7 mg/dL 1.6-2.6 [facility] Laboratory - CoagulationOrde red By: Pavel Yao on 04-11-2022 PT Coag (PPP) [Time] 12.1 s 9.0-12.9 [facility] - Drug toxicology Ordered By: Pavel Yao on 04-11-2022 Opiates Ql (U) Negative Negative [facility] Leukocytes [#/volume] correc jose for nucleated erythrocytes in Blood by Automated counOrdered By: Pavel Yao on 04-11-2022 WBC corrected for nucl RBC Auto (Bld) [#/Vol] 8.0 10*3/uL 3.8-11.6 [facility] Lymphocytes Auto (Bld) [#/Vo l]Ordered By: Pavel Yao on 04-11-2022 Lymphocytes (Bld) [#/Vol] 1.6 10*3/uL 1.00-4.8 [facility] Lymphocytes/100 WBC Auto (Bl d)Ordered By: Pavel Yao on 04-11-2022 Lymphocytes/100 WBC (Bld) 19.9 % . [facility] MCH Auto (RBC) [Entitic mass ]Ordered By: Pavel Yao on 04-11-2022 MCH (RBC) [Entitic mass] 31.5 pg 24.7-34.3 [facility] MCHC Auto (RBC) [Mass/Vol]Or dered By: Pavel Yao on 04-11-2022 MCHC (RBC) [Mass/Vol] 33.9 g/dL 32.0-35.0 [facility] MCV Auto (RBC) [Entitic vol] Ordered By: Pavel Yoa on 04-11-2022 MCV (RBC) [Entitic vol] 93.0 fL 80-100 [facility] Magnesiumon 04-11-2022 Magnesium [Mass/Vol] 1.7 mg/dL Normal 1.6-2.6 [facility] Comment on above: Result Comment: PERF ORMED BY: [place] [address] PATHOLOGIST FOOD AND BEVERAGE COORDINATOR LEE CARDOSO M.D. Performed By: #### H S TROP, CBC, DDIMER, PP, MG, BMP #### [facility] [address] Monocyte distribution width [Entitic volume] in Blood by AutomatedOrdered By: Pavel Yao on 04-11-2022 Monocyte distribution width Auto (Bld) [Entitic vol] 18.35 % 0.00-20.00 [facility] Monocytes Auto (Bld) [#/Vol] Ordered By: Pavel Yao on 04-11-2022 Monocytes (Bld) [#/Vol] 0.4 10*3/uL 0.0-0.8 [facility] Monocytes/100 WBC Auto (Bld) Ordered By: Pavel Yao on 04-11-2022 Monocytes/100 WBC (Bld) 5.2 % . [facility] Neutrophils Auto (Bld) [#/Vo l]Ordered By: Pavel Yao on 04-11-2022 Neutrophils (Bld) [#/Vol] 5.9 10*3/uL 1.8-7.7 [facility] Neutrophils/100 WBC Auto (Bl d)Ordered By: Pavel Yao on 04-11-2022 Neutrophils/100 WBC (Bld) 74.1 % . [facility] Nitrite Test strip Ql (U)Ord ered By: Pavel Yao on 04-11-2022 Nitrite Ql (U) Negative Negative [facility] No Panel InformationOrdered By: Pavel Yao on 04-11-2022 D-Dimer Quantitative (PE/DVT) 231 ng/mL 0-243 [facility] Comment on above: The reference range for D-dimer is <243 ng/mL D-dimer units.D-dimer results must be used in conjunction with a clinicalpretest probability (PTP) assessment model for deep veinthrombosis (DVT) and pulmonary embolism (PE). Results <230ng/mL d-dimer units can be used as a negative predictor inpatients with low or moderate probability for DVT/PE.Results above the exclusion threshold of 230 ng/ml D-dimerunits for DVT/PE may indicate the need for furtherdiagnostic testing.D-Dimer can be increased in hospitalized patients due toco-morbid conditions. Estimated GFR () > 60 mL/Min [facility] Comment on above: GFR estimated refere nce range: According to KDOQI guidelines, <60 ml/min/1.73m2 is sufficient to diagnose a patient with chronic kidney disease. Pharmacy Creatinine Clearance (Chem 177.08 [facility] Nucleated erythrocytes [Pres ence] in Blood by Automated countOrdered By: Pavel Yao on 04-11-2022 Nucleated RBC Auto Ql (Bld) 0.1 /100{WBC} 0-0.5 [facility] Phencyclidine Screen Ql (U)O rdered By: Pavel Yao on 04-11-2022 Phencyclidine Ql (U) Negative Negative [facility] Platelet mean volume Auto (B ld) [Entitic vol]Ordered By: Pavel Yao on 04-11-2022 Platelet mean volume (Bld) [Entitic vol] 8.2 fL 6.3-10.7 [facility] Platelet poor plasma interna tional normalized ratio (INR) by coagulation assay (relatOrdered By: Pavel Yao on 04-11-2022 INR Coag (PPP) [Relative time] 1.0 {INR} [facility] Comment on above: INR Therapeutic Rang e A) Pre- and Peroperative OAT started two weeks before surgery. NOT HIP SURGERY: 1.5 - 2.5 HIP SURGERY: 2 - 3B) Primary and secondary prevention of venous THROMBOSIS: 2 - 3C) Active venous thrombosis, pulmonary embolismand prevention of recurrent venous thrombosis: 2 - 3D) Prevention of arterial thromboembolismincluding patients with mechanical heart valves: 3 - 4.5 Platelets Auto (Bld) [#/Vol] Ordered By: Pavel Yao on 04-11-2022 Platelets (Bld) [#/Vol] 167 10*3/uL 150-450 [facility] Potassium [Moles/volume] in Serum or PlasmaOrdered By: Pavel Yao on 04-11-2022 Potassium [Moles/Vol] 3.7 mmol/L 3.5-5.1 [facility] Protein Auto test strip (U) [Mass/Vol]Ordered By: Pavel Yao on 04-11-2022 Protein (U) [Mass/Vol] 30 mg/dL Negative [facility] RBC Auto (Bld) [#/Vol]Ordere d By: Pavel Yao on 04-11-2022 RBC (Bld) [#/Vol] 4.56 10*6/uL 3.60-5.00 [facility] Serum or plasma anion gap de terminationOrdered By: Pavel Yao on 04-11-2022 Anion gap [Moles/Vol] 19.3 mmol/L 6.0-15.0 [facility] Sodium [Moles/volume] in Ser um or PlasmaOrdered By: Pavel Yao on 04-11-2022 Sodium [Moles/Vol] 136 mmol/L 136-146 [facility] Specific gravity Auto test s trip (U) [Rel density]Ordered By: Pavel Yao on 04-11-2022 Specific gravity (U) [Rel density] 1.025 1.001-1.030 [facility] Squamous epithelial cells de tection in urine sediment by light microscopyOrdered By: Pavel Yao on 04-11-2022 Epithelial cells.squamous LM Ql (Urine sed) 5-9 [HPF] 0-2 [facility] Troponin I High Sensitivityo n 04-11-2022 Troponin I High Sensitivity 6 pg/mL Normal 0-15 [facility] Comment on above: Result Comment: PERF ORMED BY: [facility] [address] [place] [address] PATHOLOGIST FOOD AND BEVERAGE COORDINATOR LEE CARDOSO M.D. Performed By: #### H S TROP, CBC, DDIMER, PP, MG, BMP #### [facility] [address] Troponin I.cardiac [Mass/vol ume] in Serum or Plasma by High sensitivity methodOrdered By: Pavel Yao on 04-11-2022 Troponin I.cardiac High sensitivity method [Mass/Vol] 6 pg/mL 0-15 [facility] Urea nitrogen [Mass/volume] in Serum or PlasmaOrdered By: Pavel Yao on 04-11-2022 Urea nitrogen [Mass/Vol] 6 mg/dL 9- [facility] Urine bacteria detection by automated methodOrdered By: Pavel Yao on 04-11-2022 Bacteria Auto Ql (U) None seen None Seen [facility] Urine clarity by refractomet ry automatedOrdered By: Pavel Yao on 04-11-2022 Clarity Refractometry automated (U) Cloudy Clear [facility] Urine cocaine detectionOrder ed By: Pavel Yao on 04-11-2022 Cocaine Ql (U) Negative Negative [facility] Urine glucose measurement by automated test strip (mass/volume)Ordered By: Pavel Yao on 04-11-2022 Glucose Auto test strip (U) [Mass/Vol] Normal mg/dL Normal [facility] Urine hemoglobin detection b y automated test stripOrdered By: Pavel Yao on 04-11-2022 Hemoglobin Auto test strip Ql (U) 3+ Negative [facility] Urine leukocyte esterase det ection by automated test stripOrdered By: Pavel Yao on 04-11-2022 Leukocyte esterase Auto test strip Ql (U) Negative Negative [facility] Urobilinogen Auto test strip (U) [Mass/Vol]Ordered By: Pavel Yao on 04-11-2022 Urobilinogen (U) [Mass/Vol] mg/dL Normal [facility] WBC Auto (Bld) [#/Vol]Ordere d By: Pavel Yao on 04-11-2022 WBC (Bld) [#/Vol] 8.0 10*3/uL 3.8-11.6 [facility] XR chest 2V*on 04-11-2022 XR chest 2V* [facility] [address] [place] [address] XRay Report Signed Patient: Lyle Flynn MR#: [id number] : 1990 Acct:[id number] Age/Sex: 32 / F ADM Date: 04/11/22 Loc: ER Room: Type: [facility] ER Attending Dr: Copies to: Pavel Yao DO Ordering Provider: Pavel Yao DO Date of Service: 04/11/22 XR/XR chest 2V*: Shortness of Breath/Dyspnea PA AND LATERAL CHEST: CLINICAL HISTORY: Shortness of breath COMPARISON: 06/25/2021 Patient is wearing a bra with associated soft tissue attenuation at the lower chest on the frontal view. There is no focal parenchymal consolidation, effusion or pneumothorax. The cardiac, hilar and mediastinal silhouettes are within normal limits. There is no vascular congestion. The visualized bony thorax is intact. XR/XR chest 2V* IMPRESSION: NO ACUTE CARDIOPULMONARY ABNORMALITY. Impression dictated by: Annalise Conley M.D.04/11/2022 9:58 AM Dictation Location: [place] [address] Transcribed By: LEONARDO 04/11/22957 Dictated By: Annalise Conley MD 04/11/22 0956 Signed By: 04/11/2258 Normal [facility] pH Auto test strip (U)Ordere d By: Pavel Yao on 04-11-2022 pH (U) 6.5 [pH] 5.0-9.0 [facility] Complete Blood Count Auto Di ffon 04-04-2022 Mean Corpuscular HGB Conc 33.5 g/dL Normal 32.0-35.0 [facility] Comment on above: Performed By: #### E ODALIS, CMP, CBC #### [facility] [address] [place] [address] Monocytes/100 WBC (Bld) 20.63 % High 0.00-20.00 [facility] Comment on above: Result Comment: For adults in ED, MDW > 20.0 may be associated with a higher risk of sepsis during the first 12 hrs of hospital admission Performed By: #### E TRIPP JACOBO, CBC #### [facility] [address] [place] [address] Comprehensive Metabolic Pane mary beth 04-04-2022 Albumin [Mass/Vol] 3.5 g/dL Normal 3.2-5.5 [facility] Comment on above: Performed By: #### E TRIPP JACOBO, CBC #### [address] ALT [Catalytic activity/Vol] 74 U/L High 10-60 [facility] Comment on above: Performed By: #### E TRIPP JACOBO, CBC #### [address] Creatinine Clr Calc Pharmacy 173.81 Normal [facility] Comment on above: Result Comment: PERF ORMED BY: [place] [address] PATHOLOGIST FOOD AND BEVERAGE COORDINATOR LEE CARDOSO M.D. Performed By: #### E TRIPP JACOBO, CBC #### [address] Drug Screen,Urineon 04-04-19 23 Amphetamine Screen,Urine Positive High Negative [facility] Comment on above: Performed By: #### E TRIPP JACOBO, CBC #### [address] Barbiturate Screen,Urine Negative Normal Negative [facility] Comment on above: Performed By: #### E TRIPP JACOBO, CBC #### [address] Benzodiazepines Screen,Urine Negative Normal Negative [facility] Comment on above: Performed By: #### E TRIPP JACOBO, CBC #### [address] Cannabinoid Screen,Urine Negative Normal Negative [facility] Comment on above: Result Comment: Thes e are unconfirmed results and should not be used for legal purposes. Drug Cut-Off Concentration: AMPH 1000 ng/mL JANELL 200 ng/mL JAMES 200 ng/mL COCM 300 ng/mL OP 300 ng/mL PCP 25 ng/mL THC 20 ng/mL PERFORMED BY: [place] [address] PATHOLOGIST FOOD AND BEVERAGE COORDINATOR LEE CARDOSO M.D. Performed By: #### E ODALIS, CMP, CBC #### [facility] [address] [place] [address] Cocaine Screen,Urine Negative Normal Negative [facility] Comment on above: Performed By: #### E ODALIS, CMP, CBC #### [address] Opiate Screen,Urine Negative Normal Negative [facility] Comment on above: Performed By: #### E ODALIS, CMP, CBC #### [address] Phencyclidine Screen,Urine Negative Normal Negative [facility] Comment on above: Performed By: #### E ODALIS, CMP, CBC #### [address] ED Note-Physicianon 04-04-19 ED Note-Physician [id number] 2042 [id number]: 127 [facility] ED Note-Physician [id number] 2042 [id number]: 127 [facility] Ethyl Alcohol Profileon 03-15 Ethanol [Mass/Vol] 141 mg/dL [facility] Comment on above: Performed By: #### H S TROP, CBC, DDIMER, PP, MG, BMP #### [facility] [address] [place] [address] Percent Ethanol 0.141 % [facility] Comment on above: Result Comment: PERF ORMED BY: [place] [address] PATHOLOGIST FOOD AND BEVERAGE COORDINATOR LEE CARDOSO M.D. Performed By: #### H S TROP, CBC, DDIMER, PP, MG, BMP #### [facility] [address] Ethanol [Mass/Vol] 310 mg/dL Normal [facility] Comment on above: Performed By: #### E TRIPP JACOBO, CBC #### [facility] [address] [place] [address] Percent Ethanol 0.310 % Normal [facility] Comment on above: Result Comment: PERF ORMED BY: [place] [address] PATHOLOGIST FOOD AND BEVERAGE COORDINATOR LEE CARDOSO M.D. Performed By: #### E TRIPP JACOBO, CBC #### [address] Serum or plasma ethanol judi urement (mass/volume)Ordered By: Eric Dooley on 04-04-2022 Ethanol [Mass/Vol] 141 mg/dL [facility] Ethanol [Mass/Vol] 0.141 % [facility] Urinalysison 04-04-2022 Appearance (U) Clear Normal Clear [facility] Comment on above: Order Comment: Name Collection Type:: Straight Catheter Performed By: #### E TRIPP JACOBO, CBC #### [address] Bilirubin,Urine Negative Normal Negative [facility] Comment on above: Order Comment: Name Collection Type:: Straight Catheter Performed By: #### E TRIPP JACOBO, CBC #### [facility] [address] [place] [address] [place] Color (U) Yellow Normal Yellow [facility] Comment on above: Order Comment: Name Collection Type:: Straight Catheter Performed By: #### E TRIPP JACOBO, CBC #### [facility] [address] [place] [address] Glucose Ql (U) Normal Normal Normal [facility] Comment on above: Order Comment: Name Collection Type:: Straight Catheter Performed By: #### E TRIPP JACOBO, CBC #### [facility] [address] [place] [address] [place] Ketones Ql (U) Negative Normal Negative [facility] Comment on above: Order Comment: Name Collection Type:: Straight Catheter Performed By: #### E ODALIS, CMP, CBC #### [facility] [address] [place] [address] Leukocyte esterase Test strip Ql (U) Negative Normal Negative [facility] Comment on above: Order Comment: Name Collection Type:: Straight Catheter Performed By: #### E ODALIS, CMP, CBC #### [facility] [address] [place] [address] Nitrite,Urine Negative Normal Negative [facility] Comment on above: Order Comment: Name Collection Type:: Straight Catheter Performed By: #### E ODALIS, CMP, CBC #### [address] Occult Blood,Urine Negative Normal Negative [facility] Comment on above: Order Comment: Name Collection Type:: Straight Catheter Result Comment: PERF ORMED BY: [place] [address] PATHOLOGIST FOOD AND BEVERAGE COORDINATOR LEE CARDOSO M.D. Performed By: #### E ODALIS, CMP, CBC #### [address] pH (U) 6.0 [pH] Normal 5.0-9.0 [facility] Comment on above: Order Comment: Name Collection Type:: Straight Catheter Performed By: #### E ODALIS, CMP, CBC #### [facility] [address] [place] [address] [place] Protein,Urine Negative Normal Negative [facility] Comment on above: Order Comment: Name Collection Type:: Straight Catheter Performed By: #### E ODALIS, CMP, CBC #### [facility] [address] [place] [address] [place] Specificy [place],Urine 1.002 Normal 1.001-1.030 [facility] Comment on above: Order Comment: Name Collection Type:: Straight Catheter Performed By: #### E ODALIS, CMP, CBC #### [facility] [address] [place] [address] Urobilinogen,Urine Normal Normal Normal [facility] Comment on above: Order Comment: Name Collection Type:: Straight Catheter Performed By: #### E TRIPP JACOBO, CBC #### [address] Alkaline phosphatase [Enzyma tic activity/volume] in Serum or PlasmaOrdered By: Eric Dooley on 04-03-2022 ALP [Catalytic activity/Vol] 74 U/L Normal 32-92 [facility] Comment on above: Performed By: #### E TRIPP JACOBO, CBC #### [address] Amphetamine Screen Ql (U)Ord ered By: Eric Dooley on 04-03-2022 Amphetamines Ql (U) Positive Negative [facility] Aspartate aminotransferase [ Enzymatic activity/volume] in Serum or PlasmaOrdered By: Eric Dooley on 04-03-2022 AST [Catalytic activity/Vol] 79 U/L High 10-42 [facility] Comment on above: Performed By: #### E TRIPP JACOBO, CBC #### [address] Automated basophil %Ordered By: Eric Dooley on 04-03-2022 Basophils/100 WBC (Bld) 1.6 % Normal . [facility] Comment on above: Performed By: #### E TRIPP JACOBO, CBC #### [address] Automated basophil countOrde red By: Ari Aguero on 04-03-2022 Basophils (Bld) [#/Vol] 0.1 10*3/uL Normal 0.0-0.2 [facility] Comment on above: Result Comment: PERF ORMED BY: [place] [address] PATHOLOGIST FOOD AND BEVERAGE COORDINATOR LEE CARDOSO M.D. Performed By: #### E TRIPP JACOBO, CBC #### [facility] [address] [place] [address] Automated blood monocyte cou ntOrdered By: Ari Aguero on 04-03-2022 Monocytes (Bld) [#/Vol] 0.5 10*3/uL Normal 0.0-0.8 [facility] Comment on above: Performed By: #### E TRIPP JACOBO, CBC #### [facility] [address] [place] [address] Automated eosinophil %Ordere d By: Eric Dooley on 04-03-2022 Eosinophils/100 WBC (Bld) 1.8 % Normal . [facility] Comment on above: Performed By: #### E ODALIS CMP, CBC #### [address] Automated eosinophil countOr dered By: Eric Dooley on 04-03-2022 Eosinophils (Bld) [#/Vol] 0.2 10*3/uL Normal 0.0-0.45 [facility] Comment on above: Performed By: #### E TRIPP JACOBO, CBC #### [facility] [address] [place] [address] Automated monocyte %Ordered By: Eric Dooley on 04-03-2022 Monocytes/100 WBC (Bld) 6.5 % Normal . [facility] Comment on above: Performed By: #### E TRIPP JACOBO, CBC #### [facility] [address] [place] [address] Automated neutrophil %Ordere d By: Eric Dooley on 04-03-2022 Neutrophils/100 WBC (Bld) 43.4 % Normal . [facility] Comment on above: Performed By: #### E TRIPP JACOBO, CBC #### [facility] [address] [place] [address] Bacterial blood cultureOrder ed By: Ari Aguero on 04-03-2022 Bacteria identified Cx Nom (Bld) NO GROWTH 5 DAYS [facility] Bacteria identified Cx Nom (Bld) NO GROWTH 5 DAYS [facility] Barbiturates [Presence] in U rineOrdered By: Eric Dooley on 04-03-2022 Barbiturates Ql (U) Negative Negative [facility] Basic Metabolic Panelon 03-15 Anion gap [Moles/Vol] 10.4 mmol/L Normal 6.0-15.0 [facility] Comment on above: Performed By: #### E TRIPP JACOBO, CBC #### [facility] [address] [place] [address] [place] Calcium [Mass/Vol] 8.9 mg/dL Normal 8.2-10.2 [facility] Comment on above: Performed By: #### E TRIPP JACOBO, CBC #### [facility] [address] [place] [address] [place] Chloride [Moles/Vol] 103 mmol/L Normal 95-114 [facility] Comment on above: Performed By: #### E TRIPP JACOBO, CBC #### [facility] [address] [place] [address] [place] CO2 [Moles/Vol] 23.7 mmol/L Normal 22.0-30.0 [facility] Comment on above: Performed By: #### E TRIPP JAOCBO, CBC #### [facility] [address] [place] [address] [place] Creatinine [Mass/Vol] 0.55 mg/dL Normal 0.44-1.03 [facility] Comment on above: Performed By: #### E TRIPP JACOBO, CBC #### [facility] [address] [place] [address] [place] Creatinine Clr Calc Pharmacy 141.66 Normal [facility] Comment on above: Performed By: #### E TRIPP JACOBO, CBC #### [facility] [address] [place] [address] [place] Glucose [Mass/Vol] 87 mg/dL Normal 70-100 [facility] Comment on above: Result Comment: [facility] Glucose Reference Range is dependent on time and content of last meal. Glucose of more than 200 mg/dL in a nonstressed, ambulatory subject supports the diagnosis of Diabetes Mellitus. ADA recommended reference range Performed By: #### E TRIPP JACOBO, CBC #### [facility] [address] [place] [address] [place] Potassium [Moles/Vol] 4.1 mmol/L Normal 3.5-5.1 [facility] Comment on above: Performed By: #### E TRIPP JACOBO, CBC #### [facility] [address] Sodium [Moles/Vol] 133 mmol/L Low 136-146 [facility] Comment on above: Performed By: #### E TRIPP JACOBO, CBC #### [facility] [address] Urea nitrogen [Mass/Vol] 7 mg/dL Low 9-23 [facility] Comment on above: Performed By: #### E TRIPP JACOBO, CBC #### [facility] [address] [place] [address] [place] Basophils/100 WBC Auto (Bld) Ordered By: Ari Aguero on 04-03-2022 Basophils/100 WBC (Bld) 0.8 % . [facility] Benzodiazepines [Presence] i n UrineOrdered By: Eric Dooley on 04-03-2022 Benzodiazepines Ql (U) Negative Negative [facility] Bilirubin Test strip Ql (U)O rdered By: Eric Dooley on 04-03-2022 Bilirubin Ql (U) Negative Negative [facility] Blood Cultureon 04-03-2022 Bacteria identified Cx Nom (Bld) NO GROWTH 5 DAYS PERFORMED BY: [place] [address] PATHOLOGIST FOOD AND BEVERAGE COORDINATOR LEE CARDOSO M.D. [facility] Comment on above: Performed By: #### E TRIPP JACOBO, CBC #### [facility] [address] [place] [address] Bacteria identified Cx Nom (Bld) NO GROWTH 5 DAYS PERFORMED BY: [place] [address] PATHOLOGIST FOOD AND BEVERAGE COORDINATOR LEE CARDOSO M.D. [facility] Comment on above: Performed By: #### E TRIPP JACOBO, CBC #### [facility] [address] [place] [address] Body fluid albumin measureme nt (mass/volume)Ordered By: Eric Dooley on 04-03-2022 Albumin (Body fld) [Mass/Vol] 3.5 g/dL 3.2-5.5 [facility] C reactive protein [Mass/vol ume] in Serum or PlasmaOrdered By: Ari Aguero on 04-03-2022 CRP [Mass/Vol] 0.7 mg/dL 0.0-1.0 [facility] C-Reactive Proteinon 023 C-Reactive Protein 0.7 mg/dL Normal 0.0-1.0 [facility] Comment on above: Result Comment: PERF ORMED BY: [place] [address] PATHOLOGIST FOOD AND BEVERAGE COORDINATOR LEE CARDOSO M.D. Performed By: #### E TRIPP JACOBO, CBC #### [facility] [address] [place] [address] Calcium [Mass/volume] in Ser um or PlasmaOrdered By: Eric Dooley on 04-03-2022 Calcium [Mass/Vol] 8.8 mg/dL Normal 8.2-10.2 [facility] Comment on above: Performed By: #### E TRIPP JACOBO, CBC #### [facility] [address] [place] [address] Cannabinoids [Presence] in U rine by Screen methodOrdered By: Eric Dooley on 04-03-2022 Cannabinoids Screen Ql (U) Negative Negative [facility] Comment on above: These are unconfirme d results and should not be used for legal purposes. Drug Cut-Off Concentration: AMPH 1000 ng/mL JANELL 200 ng/mL JAMES 200 ng/mL COCM 300 ng/mL OP 300 ng/mL PCP 25 ng/mL THC 20 ng/mL Carbon dioxide, total [Moles /volume] in Serum or PlasmaOrdered By: Eric Dooley on 04-03-2022 CO2 [Moles/Vol] 24.9 mmol/L Normal 22.0-30.0 [facility] Comment on above: Performed By: #### E TRIPP JACOBO, CBC #### [facility] [address] [place] [address] [place] Color Auto (U)Ordered By: Anita Dooley on 04-03-2022 Color (U) Yellow Yellow [facility] Complete Blood Count Auto Di ffon 02-21-2023 Basophils (Bld) [#/Vol] 0.1 10*3/uL Normal 0.0-0.2 [facility] Comment on above: Performed By: #### E TRIPP JACOBO, CBC #### [address] Basophils/100 WBC (Bld) 0.8 % Normal . [facility] Comment on above: Performed By: #### E ODALIS CMP, CBC #### [address] Eosinophils (Bld) [#/Vol] 0.1 10*3/uL Normal 0.0-0.45 [facility] Comment on above: Performed By: #### E TRIPP JACOBO, CBC #### [address] Eosinophils/100 WBC (Bld) 1.5 % Normal . [facility] Comment on above: Performed By: #### E TRIPP JACOBO, CBC #### [address] Erythrocyte distribution width (RBC) [Ratio] 13.3 % Normal 11.9-15.3 [facility] Comment on above: Performed By: #### E TRIPP JACOBO, CBC #### [address] Hematocrit (Bld) [Volume fraction] 43.6 % Normal 34.0-46.4 [facility] Comment on above: Performed By: #### E ODALIS CMP, CBC #### [address] Hemoglobin (Bld) [Mass/Vol] 14.5 g/dL Normal 11.8-15.4 [facility] Comment on above: Performed By: #### E ODALIS CMP, CBC #### [address] Lymphocytes (Bld) [#/Vol] 1.7 10*3/uL Normal 1.00-4.8 [facility] Comment on above: Performed By: #### E ODALIS, CMP, CBC #### [facility] [address] Lymphocytes/100 WBC (Bld) 24.5 % Normal . [facility] Comment on above: Performed By: #### E TRIPP JACOBO, CBC #### [facility] [address] MCH (RBC) [Entitic mass] 31.0 pg Normal 24.7-34.3 [facility] Comment on above: Performed By: #### E TRIPP JACOBO, CBC #### [address] MCV (RBC) [Entitic vol] 93.3 fL Normal 80-100 [facility] Comment on above: Performed By: #### E TRIPP JACOBO, CBC #### [address] Mean Corpuscular HGB Conc 33.3 g/dL Normal 32.0-35.0 [facility] Comment on above: Performed By: #### E TRIPP JACOBO, CBC #### [address] Monocytes (Bld) [#/Vol] 0.5 10*3/uL Normal 0.0-0.8 [facility] Comment on above: Performed By: #### E TRIPP JACOBO, CBC #### [address] Monocytes/100 WBC (Bld) 16.81 % Normal 0.00-20.00 [facility] Comment on above: Performed By: #### E TRIPP JACOBO, CBC #### [place] [address] [place] Monocytes/100 WBC (Bld) 6.6 % Normal . [facility] Comment on above: Performed By: #### E TRIPP JACOBO, CBC #### [facility] [address] [place] [address] Neutrophils (Bld) [#/Vol] 4.6 10*3/uL Normal 1.8-7.7 [facility] Comment on above: Performed By: #### E ODALIS, CMP, CBC #### [facility] [address] Neutrophils/100 WBC (Bld) 66.6 % Normal . [facility] Comment on above: Performed By: #### E ODALIS, CMP, CBC #### [facility] [address] NRBC% 0.1 /100{WBC} Normal 0-0.5 [facility] Comment on above: Performed By: #### E ODALIS, CMP, CBC #### [address] Platelet mean volume (Bld) [Entitic vol] 8.1 fL Normal 6.3-10.7 [facility] Comment on above: Performed By: #### E ODALIS CMP, CBC #### [address] Platelets (Bld) [#/Vol] 179 10*3/uL Normal 150-450 [facility] Comment on above: Performed By: #### E ODALIS CMP, CBC #### [address] RBC (Bld) [#/Vol] 4.68 10*6/uL Normal 3.60-5.00 [facility] Comment on above: Performed By: #### E ODALIS CMP, CBC #### [address] WBC (Bld) [#/Vol] 7.0 10*3/uL Normal 3.8-11.6 [facility] Comment on above: Performed By: #### E ODALIS CMP, CBC #### [address] Comprehensive Metabolic Pane mary beth 04-03-2022 Estimated GFR ( Faye > 60 Normal [facility] Comment on above: Result Comment: GFR estimated reference range: According to KDOQI guidelines, <60 ml/min/1.73m2 is sufficient to diagnose a patient with chronic kidney disease. Performed By: #### E ODALIS, CMP, CBC #### [facility] [address] Estimated GFR (Non- Am > 60 [facility] Comment on above: Performed By: #### E ODALISTRIPP Rodriguez, CBC #### [facility] [address] [place] [address] [place] Creatinine and Glomerular fi ltration rate.predicted panel (S/P/Bld)Ordered By: Ari Aguero on 04-03-2022 Creatinine [Mass/Vol] 0.55 mg/dL 0.44-1.03 [facility] ECG 12 lead ECGon 04-03-2022 ECG 12 lead ECG [facility] [address] [place] [address] [place] [address] Electrocardiograph Report Signed Patient: Lyle Flynn MR#: [id number] : 1990 Acct:[id number] Age/Sex: 32 / F ADM Date: 04/03/22 Loc: ER Room: Type: [facility] ER Attending Dr: Ordering Provider: Eric Dooley MD Date of Service: 04/03/22 ECG/ECG 12 lead ECG: Overdose Copies to: Test Reason : Blood Pressure : / mmHG Vent. Rate : 065 BPM Atrial Rate : 065 BPM P-R Int : 196 ms QRS Dur : 088 ms QT Int : 440 ms P-R-T Axes : 052 093 029 degrees QTc Int : 457 ms Normal sinus rhythm Possible Left atrial enlargement Rightward axis Borderline ECG When compared with ECG of 20-FEB-2022 18:53, No significant change was found Confirmed by ERIC DOOLEY MD ([id number]) on 04/04/2022 12:17:01 AM Referred By: Electronically Signed By:ERIC DOOLEY MD Transcribed By: MUS Signed By Eric Dooley MD 04/04/22 0017 [facility] ED Note-Physicianon 04-03-19 ED Note-Physician [id number]: 127 Normal [facility] Eosinophils Auto (Bld) [#/Vo l]Ordered By: Ari Aguero on 04-03-2022 Eosinophils (Bld) [#/Vol] 0.1 10*3/uL 0.0-0.45 [facility] Eosinophils/100 WBC Auto (Bl d)Ordered By: Ari Aguero on 04-03-2022 Eosinophils/100 WBC (Bld) 1.5 % . [facility] Erythrocyte Sedimentation Ra corrine 04-03-2022 ESR (Bld) [Velocity] 9 mm/h Normal 0-19 [facility] Comment on above: Result Comment: PERF ORMED BY: [place] [address] PATHOLOGIST FOOD AND BEVERAGE COORDINATOR LEE CARDOSO M.D. Performed By: #### E TRIPP JACOBO, CBC #### [facility] [address] [place] [address] Erythrocyte distribution wid th [Ratio] by Automated countOrdered By: Ari Aguero on 04-03-2022 Erythrocyte distribution width (RBC) [Ratio] 13.3 % Normal 11.9-15.3 [facility] Comment on above: Performed By: #### E TRIPP JACOBO, CBC #### [facility] [address] [place] [address] Erythrocyte sedimentation ra te by Photometric methodOrdered By: Ari Aguero on 04-03-2022 ESR Photometric method (Bld) [Velocity] 9 mm/hr 0- [facility] Erythrocytes [#/volume] in B lood by Automated countOrdered By: Eric Dooley on 04-03-2022 RBC (Bld) [#/Vol] 4.72 10*6/uL Normal 3.60-5.00 [facility] Comment on above: Performed By: #### E TRIPP JACOBO, CBC #### [facility] [address] [place] [address] Estimated glomerular filtrat ion rate (GFR) non- AmericanOrdered By: Ari Aguero on 04-03-2022 GFR/1.73 sq M.predicted among non-blacks MDRD (S/P/Bld) [Vol rate/Area] > 60 mL/Min [facility] Hematocrit Auto (Bld) [Volum e fraction]Ordered By: Ari Aguero on 04-03-2022 Hematocrit (Bld) [Volume fraction] 43.6 % 34.0-46.4 [facility] Hematocrit [Volume Fraction] of Blood by Automated countOrdered By: Eric Dooley on 04-03-2022 Hematocrit (Bld) [Volume fraction] 44.1 % Normal 34.0-46.4 [facility] Comment on above: Performed By: #### E TRIPP JACOBO, CBC #### [facility] [address] Hemoglobin [Mass/volume] in BloodOrdered By: Eric Dooley on 04-03-2022 Hemoglobin (Bld) [Mass/Vol] 14.8 g/dL Normal 11.8-15.4 [facility] Comment on above: Performed By: #### E TRIPP JACOBO, CBC #### [facility] [address] Hemoglobin [Mass/volume] in BloodOrdered By: Ari Aguero on 04-03-2022 Hemoglobin (Bld) [Mass/Vol] 14.5 g/dL 11.8-15.4 [facility] Ketones Auto test strip (U) [Mass/Vol]Ordered By: Eric Dooley on 04-03-2022 Ketones (U) [Mass/Vol] Negative Negative [facility] Laboratory - Drug toxicology Ordered By: Eric Dooley on 04-03-2022 Opiates Ql (U) Negative Negative [facility] Leukocytes [#/volume] correc jose for nucleated erythrocytes in Blood by Automated counOrdered By: Eric Dooley on 04-03-2022 WBC corrected for nucl RBC Auto (Bld) [#/Vol] 8.3 10*3/uL 3.8-11.6 [facility] Leukocytes [#/volume] correc jose for nucleated erythrocytes in Blood by Automated counOrdered By: Ari Aguero on 04-03-2022 WBC corrected for nucl RBC Auto (Bld) [#/Vol] 7.0 10*3/uL 3.8-11.6 [facility] Leukocytes [#/volume] in Blo od by Automated countOrdered By: Eric Dooley on 04-03-2022 WBC (Bld) [#/Vol] 8.3 10*3/uL Normal 3.8-11.6 [facility] Comment on above: Performed By: #### E ODALIS CMP, CBC #### [facility] [address] Lymphocytes Auto (Bld) [#/Vo l]Ordered By: Ari Aguero on 04-03-2022 Lymphocytes (Bld) [#/Vol] 1.7 10*3/uL 1.00-4.8 [facility] Lymphocytes [#/volume] in Bl ood by Automated countOrdered By: Eric Dooley on 04-03-2022 Lymphocytes (Bld) [#/Vol] 3.9 10*3/uL Normal 1.00-4.8 [facility] Comment on above: Performed By: #### E ODALIS CMP, CBC #### [facility] [address] [place] [address] Lymphocytes/100 WBC Auto (Bl d)Ordered By: Ari Aguero on 04-03-2022 Lymphocytes/100 WBC (Bld) 24.5 % . [facility] Lymphocytes/100 leukocytes i n Blood by Automated countOrdered By: Eric Dooley on 04-03-2022 Lymphocytes/100 WBC (Bld) 46.7 % Normal . [facility] Comment on above: Performed By: #### E ODALIS CMP, CBC #### [facility] [address] [place] [address] MCH Auto (RBC) [Entitic mass ]Ordered By: Ari Aguero on 04-03-2022 MCH (RBC) [Entitic mass] 31.0 pg 24.7-34.3 [facility] MCH [Entitic mass] by Automa jose countOrdered By: Eric Dooley on 04-03-2022 MCH (RBC) [Entitic mass] 31.3 pg Normal 24.7-34.3 [facility] Comment on above: Performed By: #### E ODALIS, CMP, CBC #### [facility] [address] [place] [address] MCHC Auto (RBC) [Mass/Vol]Or dered By: Eric Dooley on 04-03-2022 MCHC (RBC) [Mass/Vol] 33.5 g/dL 32.0-35.0 [facility] MCHC Auto (RBC) [Mass/Vol]Or dered By: Ari Aguero on 04-03-2022 MCHC (RBC) [Mass/Vol] 33.3 g/dL 32.0-35.0 [facility] MCV Auto (RBC) [Entitic vol] Ordered By: Ari Aguero on 04-03-2022 MCV (RBC) [Entitic vol] 93.3 fL 80-100 [facility] MCV [Entitic volume] by Auto mated countOrdered By: Eric Dooley on 04-03-2022 MCV (RBC) [Entitic vol] 93.4 fL Normal 80-100 [facility] Comment on above: Performed By: #### E ODALIS, CMP, CBC #### [address] Monocyte distribution width [Entitic volume] in Blood by AutomatedOrdered By: Eric Dooley on 04-03-2022 Monocyte distribution width Auto (Bld) [Entitic vol] 20.63 % 0.00-20.00 [facility] Comment on above: For adults in ED, MD W > 20.0 may be associated with a higher risk of sepsis during the first 12 hrs of hospital admission Monocyte distribution width [Entitic volume] in Blood by AutomatedOrdered By: Ari Aguero on 04-03-2022 Monocyte distribution width Auto (Bld) [Entitic vol] 16.81 % 0.00-20.00 [facility] Monocytes/100 WBC Auto (Bld) Ordered By: Ari Aguero on 04-03-2022 Monocytes/100 WBC (Bld) 6.6 % . [facility] Neutrophils Auto (Bld) [#/Vo l]Ordered By: Ari Aguero on 04-03-2022 Neutrophils (Bld) [#/Vol] 4.6 10*3/uL 1.8-7.7 [facility] Neutrophils [#/volume] in Bl ood by Automated countOrdered By: Eric Dooley on 04-03-2022 Neutrophils (Bld) [#/Vol] 3.6 10*3/uL Normal 1.8-7.7 [facility] Comment on above: Performed By: #### E ODALIS, CMP, CBC #### [facility] [address] [place] [address] [place] Neutrophils/100 WBC Auto (Bl d)Ordered By: Ari Aguero on 04-03-2022 Neutrophils/100 WBC (Bld) 66.6 % . [facility] Nitrite Test strip Ql (U)Ord ered By: Eric Dooley on 04-03-2022 Nitrite Ql (U) Negative Negative [facility] No Panel InformationOrdered By: Eric Dooley on 04-03-2022 Pharmacy Creatinine Clearance (Chem 173.81 [facility] No Panel InformationOrdered By: Ari Aguero on 04-03-2022 Estimated GFR () > 60 mL/Min [facility] Comment on above: GFR estimated refere nce range: According to KDOQI guidelines, <60 ml/min/1.73m2 is sufficient to diagnose a patient with chronic kidney disease. Pharmacy Creatinine Clearance (Chem 141.66 [facility] Nucleated erythrocytes [Pres ence] in Blood by Automated countOrdered By: Ari Aguero on 04-03-2022 Nucleated RBC Auto Ql (Bld) 0.1 /100{WBC} 0-0.5 [facility] Phencyclidine Screen Ql (U)O rdered By: Eric Dooley on 04-03-2022 Phencyclidine Ql (U) Negative Negative [facility] Platelet mean volume Auto (B ld) [Entitic vol]Ordered By: Ari Aguero on 04-03-2022 Platelet mean volume (Bld) [Entitic vol] 8.1 fL 6.3-10.7 [facility] Platelet mean volume [Entiti c volume] in Blood by Automated countOrdered By: Eric Dooley on 04-03-2022 Platelet mean volume (Bld) [Entitic vol] 8.0 fL Normal 6.3-10.7 [facility] Comment on above: Performed By: #### E ODALIS, CMP, CBC #### [facility] [address] [place] [id number] [place] Platelets Auto (Bld) [#/Vol] Ordered By: Ari Aguero on 04-03-2022 Platelets (Bld) [#/Vol] 179 10*3/uL 150-450 [facility] Platelets [#/volume] in Bloo d by Automated countOrdered By: Eric Dooley on 04-03-2022 Platelets (Bld) [#/Vol] 191 10*3/uL Normal 150-450 [facility] Comment on above: Performed By: #### E TRIPP JACOBO, CBC #### [facility] [address] Protein Auto test strip (U) [Mass/Vol]Ordered By: Eric Dooley on 04-03-2022 Protein (U) [Mass/Vol] Negative Negative [facility] Protein [Mass/volume] in Ser um or PlasmaOrdered By: Eric Dooley on 04-03-2022 Protein [Mass/Vol] 6.8 g/dL Normal 6.1-7.9 [facility] Comment on above: Performed By: #### E RTIPP JACOBO, CBC #### [facility] [address] [place] [address] RBC Auto (Bld) [#/Vol]Ordere d By: Ari Aguero on 04-03-2022 RBC (Bld) [#/Vol] 4.68 10*6/uL 3.60-5.00 [facility] Serum globulin measurement b y calculation (mass/volume)Ordered By: Eric Dooley on 04-03-2022 Globulin (S) [Mass/Vol] 3.3 g/dL Normal [facility] Comment on above: Performed By: #### E TRIPP JACOBO, CBC #### [facility] [address] [place] [address] Serum or plasma alanine urbina otransferase measurement without P-5'-P (enzymatic activiOrdered By: Eric Dooley on 04-03-2022 ALT No additional P-5'-P [Catalytic activity/Vol] 74 U/L 10-60 [facility] Serum or plasma albumin/glob ulin mass ratioOrdered By: Eric Dooley on 04-03-2022 Albumin/Globulin [Mass ratio] 1.1 {ratio} Normal [facility] Comment on above: Performed By: #### E TRIPP JACOBO, CBC #### [facility] [address] Serum or plasma anion gap de terminationOrdered By: Eric Dooley on 04-03-2022 Anion gap [Moles/Vol] 13.6 mmol/L Normal 6.0-15.0 [facility] Comment on above: Performed By: #### E TRIPP JACOBO, CBC #### [facility] [address] Serum or plasma anion gap de terminationOrdered By: Ari Aguero on 04-03-2022 Anion gap [Moles/Vol] 10.4 mmol/L 6.0-15.0 [facility] Serum or plasma calcium judi urement (mass/volume)Ordered By: Ari Aguero on 04-03-2022 Calcium [Mass/Vol] 8.9 mg/dL 8.2-10.2 [facility] Serum or plasma chloride nataliia surement (moles/volume)Ordered By: Eric Dooley on 04-03-2022 Chloride [Moles/Vol] 104 mmol/L Normal 95-114 [facility] Comment on above: Performed By: #### E TRIPP JACOBO, CBC #### [facility] [address] [place] [address] Serum or plasma chloride nataliia surement (moles/volume)Ordered By: Ari Aguero on 04-03-2022 Chloride [Moles/Vol] 103 mmol/L 95-114 [facility] Serum or plasma creatinine m easurement with calculation of estimated glomerular filtrOrdered By: Eric Dooley on 04-03-2022 Creatinine [Mass/Vol] 0.52 mg/dL Normal 0.44-1.03 [facility] Comment on above: Performed By: #### E TRIPP JACOBO, CBC #### [facility] [address] [place] [address] Serum or plasma glucose judi urement (mass/volume)Ordered By: Eric Dooley on 04-03-2022 Glucose [Mass/Vol] 88 mg/dL Normal 70-100 [facility] Comment on above: ADA recommended refe rence rangeRandom Glucose Reference Range is dependent on time and content of last meal. Glucose of more than 200 mg/dL in a nonstressed, ambulatory subject supports the diagnosis of Diabetes Mellitus. Result Comment: [place] Glucose Reference Range is dependent on time and content of last meal. Glucose of more than 200 mg/dL in a nonstressed, ambulatory subject supports the diagnosis of Diabetes Mellitus. ADA recommended reference range Performed By: #### E TRIPP JACOBO, CBC #### [facility] [address] Serum or plasma glucose judi urement (mass/volume)Ordered By: Ari Aguero on 04-03-2022 Glucose [Mass/Vol] 87 mg/dL 70-100 [facility] Comment on above: ADA recommended refe rence rangeRandom Glucose Reference Range is dependent on time and content of last meal. Glucose of more than 200 mg/dL in a nonstressed, ambulatory subject supports the diagnosis of Diabetes Mellitus. Serum or plasma potassium me asurement (moles/volume)Ordered By: Eric Dooley on 04-03-2022 Potassium [Moles/Vol] 3.5 mmol/L Normal 3.5-5.1 [facility] Comment on above: Performed By: #### E TRIPP JACOBO, CBC #### [address] Serum or plasma potassium me asurement (moles/volume)Ordered By: Ari Aguero on 04-03-2022 Potassium [Moles/Vol] 4.1 mmol/L 3.5-5.1 [facility] Serum or plasma sodium measu rement (moles/volume)Ordered By: Eric Dooley on 04-03-2022 Sodium [Moles/Vol] 139 mmol/L Significant change down 136-146 [facility] Comment on above: [place]: 133 on Performed By: #### E TRIPP JACOBO, CBC #### [address] Serum or plasma sodium measu rement (moles/volume)Ordered By: Ari Aguero on 04-03-2022 Sodium [Moles/Vol] 133 mmol/L 136-146 [facility] Serum or plasma total biliru bin measurement (mass/volume)Ordered By: Eric Dooley on 04-03-2022 Bilirubin [Mass/Vol] 0.3 mg/dL Normal 0.3-1.2 [facility] Comment on above: Performed By: #### E TRIPP JACOBO, CBC #### [facility] [address] Serum or plasma total carbon dioxide measurement (moles/volume)Ordered By: Ari Aguero on 04-03-2022 CO2 [Moles/Vol] 23.7 mmol/L 22.0-30.0 [facility] Serum or plasma urea nitroge n measurement (mass/volume)Ordered By: Ari Aguero on 04-03-2022 Urea nitrogen [Mass/Vol] 7 mg/dL 11-03 [facility] Specific gravity Auto test s trip (U) [Rel density]Ordered By: Eric Dooley on 04-03-2022 Specific gravity (U) [Rel density] 1.002 1.001-1.030 [facility] Urea nitrogen [Mass/volume] in Serum or PlasmaOrdered By: Eric Dooley on 04-03-2022 Urea nitrogen [Mass/Vol] 5 mg/dL Low 11-03 [facility] [facility] Comment on above: Performed By: #### E TRIPP JACOBO, CBC #### [facility] [address] [place] [address] Urine clarity by refractomet ry automatedOrdered By: Eric Dooley on 04-03-2022 Clarity Refractometry automated (U) Clear Clear [facility] Urine cocaine detectionOrder ed By: Eric Dooley on 04-03-2022 Cocaine Ql (U) Negative Negative [facility] Urine glucose measurement by automated test strip (mass/volume)Ordered By: Eric Dooley on 04-03-2022 Glucose Auto test strip (U) [Mass/Vol] Normal mg/dL Normal [facility] Urine hemoglobin detection b y automated test stripOrdered By: Eric Dooley on 04-03-2022 Hemoglobin Auto test strip Ql (U) Negative Negative [facility] Urine leukocyte esterase det ection by automated test stripOrdered By: Eric Dooley on 04-03-2022 Leukocyte esterase Auto test strip Ql (U) Negative Negative [facility] Urobilinogen Auto test strip (U) [Mass/Vol]Ordered By: Eric Dooley on 04-03-2022 Urobilinogen (U) [Mass/Vol] Normal mg/dL Normal [facility] WBC Auto (Bld) [#/Vol]Ordere d By: Ari Aguero on 04-03-2022 WBC (Bld) [#/Vol] 7.0 10*3/uL 3.8-11.6 [facility] XR hand RT min 3V*on 023 XR hand RT min 3V* [facility] [place] [address] XRay Report Signed Patient: Lyle Flynn MR#: [id number] : 1990 Acct:[id number] Age/Sex: 32 / F ADM Date: 04/03/22 Loc: ER Room: Type: [facility] ER Attending Dr: Copies to: Ari Aguero DO Ordering Provider: Ari Aguero DO Date of Service: 04/03/22 XR/XR hand RT min 3V*: Skin/Abscess/Foreign Body RIGHT HAND - 3 views CLINICAL DATA: Dog bite to right hand with erythema and swelling at the puncture wound near the third metacarpal head. COMPARISON: None AP, lateral and oblique views were obtained. There is no evidence of fracture or dislocation. There is dorsal soft tissue swelling in the distal metacarpals and proximal third finger. No radiopaque foreign bodies are noted.. XR/XR hand RT min 3V* IMPRESSION: NO ACUTE BONY INJURY. Impression dictated by: Annalise Conley M.D.04/03/2022 8:41 AM Dictation Location: [place] [address] Transcribed By: [facility] 04/03/2241 Dictated By: Annalise Conley MD 04/03/2240 Signed By: 04/03/2241 Normal [facility] pH Auto test strip (U)Ordere d By: Eric Dooley on 04-03-2022 pH (U) 6.0 [pH] 5.0-9.0 [facility] ED Note-Physicianon 04-02-19 ED Note-Physician [id number]: 127 Normal [facility] Physician Referralon 023 Physician Referral [id number] :127 Normal [facility] Ambulatory Visit Summaryon 0 03-28-2022 Ambulatory Visit Summary Invalid Interpretation Code Depression with anxiety [facility] Family Medicine Office/Clini c Noteon 03-28-2022 Family Medicine Office/Clinic Note Normal [facility] Comment on above: Result Comment: Elec tronically Signed By: Amanda BARRIOS CNP\.br\Date and Time Signed: 03/28/22 15:53 EST\.br\Electronically Co-Signed By: Marilyn Bailey\.br\Date and Time Co-Signed: 03/28/22 15:51 EST ED Note-Physicianon 03-19-19 ED Note-Physician [id number]: 127 Normal [facility] Acetaminophenon 03-12-2022 Acetaminophen [Mass/Vol] ug/mL Low 10-30 [facility] Comment on above: Performed By: #### C DP, CP, MG, HCG, ACET, ALCB, SALI #### [facility] [address] [place] [address] Vendor Management Specialist: Foreign Page DO Acetaminophen Levelon 2022 Acetaminophen Level <5 Low 10 - 30 ug/mL m2p-labs CBC with Auto Differentialon 03-12-2022 Absolute Eos # 0.10 [facility] [employer] Absolute Lymph # 3.70 [facility] [employer] Absolute [place] # 0.30 [facility] [employer] Basophils (Bld) [#/Vol] 0.10 10*3/uL [facility] [employer] Basophils/100 WBC (Bld) 1 % 0 - 2 % [facility] [employer] Eosinophils/100 WBC (Bld) 1 % 0 - 4 % [facility] [employer] Hematocrit (Bld) [Volume fraction] 40.5 % 36 - 46 % [facility] Hemoglobin (Bld) [Mass/Vol] 13.3 g/dL 12.0 - 16.0 g/dL [facility] Lymphocytes/100 WBC (Bld) 44 % 24 - 44 % [facility] MCH (RBC) [Entitic mass] 31.1 pg 26 - 34 pg [facility] MCHC (RBC) [Mass/Vol] 32.8 g/dL 31 - 37 g/dL [facility] MCV (RBC) [Entitic vol] 94.8 fL 80 - 100 fL [facility] Monocytes/100 WBC (Bld) 4 % 1 - 7 % [facility] Platelet distribution width (Bld) [Ratio] 13.3 % 11.5 - 14.9 % [facility] Platelet mean volume (Bld) [Entitic vol] 7.3 fL 6.0 - 12.0 fL [facility] Platelets (Bld) [#/Vol] 301 10*3/uL [facility] RBC (Bld) [#/Vol] 4.27 10*6/uL 4.0 - 5.2 m/uL [facility] Segmented neutrophils/100 WBC (Bld) 50 % 36 - 66 % [facility] Segs Absolute 4.20 [facility] WBC (Bld) [#/Vol] 8.3 10*3/uL [facility] CBC with Diffon 03-12-2022 Abs. Basophil 0.10 k/uL Normal 0.0-0.2 [facility] Comment on above: Performed By: #### C DP, CP, MG, HCG, ACET, ALCB, SALI #### [facility] [address] [place] [address] Vendor Management Specialist: Foreign Page DO Abs.Neutrophil (Seg) 4.20 k/uL Normal 1.3-9.1 [facility] Comment on above: Performed By: #### C DP, CP, MG, HCG, ACET, ALCB, SALI #### [facility] [address] [place] [address] Vendor Management Specialist: Foreign Page DO Basophils/100 WBC (Bld) 1 % Normal 0-2 [facility] Comment on above: Performed By: #### C DP, CP, MG, HCG, ACET, ALCB, SALI #### [facility] [address] [place] [address] Vendor Management Specialist: Foreign Page DO Eosinophils (Bld) [#/Vol] 0.10 10*3/uL Normal 0.0-0.4 [facility] Comment on above: Performed By: #### C DP, CP, MG, HCG, ACET, ALCB, SALI #### [facility] [address] [place] [address] Vendor Management Specialist: Foreign Page DO Eosinophils/100 WBC (Bld) 1 % Normal 0-4 [facility] Comment on above: Performed By: #### C DP, CP, MG, HCG, ACET, ALCB, SALI #### [facility] [address] [place] [address] Vendor Management Specialist: Foreign Page DO Erythrocyte distribution width (RBC) [Ratio] 13.3 % Normal 11.5-14.9 [facility] Comment on above: Performed By: #### C DP, CP, MG, HCG, ACET, ALCB, SALI #### [facility] [address] [place] [address] Vendor Management Specialist: Foreign Page DO Hematocrit (Bld) [Volume fraction] 40.5 % Normal 36-46 [facility] Comment on above: Performed By: #### C DP, CP, MG, HCG, ACET, ALCB, SALI #### [facility] [address] [place] [address] Vendor Management Specialist: Foreign Page DO Hemoglobin (Bld) [Mass/Vol] 13.3 g/dL Normal 12.0-16.0 [facility] Comment on above: Performed By: #### C DP, CP, MG, HCG, ACET, ALCB, SALI #### [facility] [address] [place] [address] Vendor Management Specialist: Foreign Page DO Lymphocytes (Bld) [#/Vol] 3.70 10*3/uL Normal 1.0-4.8 [facility] Comment on above: Performed By: #### C DP, CP, MG, HCG, ACET, ALCB, SALI #### [facility] [place] [address] Vendor Management Specialist: Foreign Page DO Lymphocytes/100 WBC (Bld) 44 % Normal 24-44 [facility] Comment on above: Performed By: #### C DP, CP, MG, HCG, ACET, ALCB, SALI #### [facility] [place] [address] Vendor Management Specialist: Foreign Page DO MCH (RBC) [Entitic mass] 31.1 pg Normal 26-34 [facility] Comment on above: Performed By: #### C DP, CP, MG, HCG, ACET, ALCB, SALI #### [facility] [place] [address] Vendor Management Specialist: Foreign Page DO MCHC (RBC) [Mass/Vol] 32.8 g/dL Normal 31-37 [facility] Comment on above: Performed By: #### C DP, CP, MG, HCG, ACET, ALCB, SALI #### [facility] [place] [address] Vendor Management Specialist: Foreign Page DO MCV (RBC) [Entitic vol] 94.8 fL Normal 80-100 [facility] Comment on above: Performed By: #### C DP, CP, MG, HCG, ACET, ALCB, SALI #### [facility] [address] [place] [address] Vendor Management Specialist: Foreign Page DO Monocytes (Bld) [#/Vol] 0.30 10*3/uL Normal 0.1-1.3 [facility] Comment on above: Performed By: #### C DP, CP, MG, HCG, ACET, ALCB, SALI #### [facility] [address] [place] [address] Vendor Management Specialist: Foreign Page DO Monocytes/100 WBC (Bld) 4 % Normal 1-7 [facility] Comment on above: Performed By: #### C DP, CP, MG, HCG, ACET, ALCB, SALI #### [facility] [address] [place] [address] Vendor Management Specialist: Foreign Page DO Neutrophil (Seg) 50 % Normal 36-66 [facility] Comment on above: Performed By: #### C DP, CP, MG, HCG, ACET, ALCB, SALI #### [facility] [address] [place] [address] Vendor Management Specialist: Foreign Page DO Platelet mean volume (Bld) [Entitic vol] 7.3 fL Normal 6.0-12.0 [facility] Comment on above: Performed By: #### C DP, CP, MG, HCG, ACET, ALCB, SALI #### [facility] [address] [place] [address] Vendor Management Specialist: Foreign Page DO Platelets (Bld) [#/Vol] 301 10*3/uL Normal 150-450 [facility] Comment on above: Performed By: #### C DP, CP, MG, HCG, ACET, ALCB, SALI #### [facility] [address] [place] [address] Vendor Management Specialist: Foreign Page DO RBC (Bld) [#/Vol] 4.27 10*6/uL Normal 4.0-5.2 [facility] Comment on above: Performed By: #### C DP, CP, MG, HCG, ACET, ALCB, SALI #### [facility] [address] [place] [address] Vendor Management Specialist: Foreign Page DO WBC (Bld) [#/Vol] 8.3 10*3/uL Normal 3.5-11.0 [facility] Comment on above: Performed By: #### C DP, CP, MG, HCG, ACET, ALCB, SALI #### [facility] [address] [facility] [place] [address] Vendor Management Specialist: Foreign Page DO CMPon 03-12-2022 Albumin [Mass/Vol] 3.6 g/dL 3.5 - 5.2 g/dL [facility] ALP (Bld) [Catalytic activity/Vol] 123 U/L High 35 - 104 U/L [facility] ALT [Catalytic activity/Vol] 78 U/L High 5 - 33 U/L [facility] Anion gap [Moles/Vol] 12 mmol/L 9 - 17 mmol/L [facility] AST [Catalytic activity/Vol] 143 U/L High NINF - 32 U/L [facility] Bilirubin [Mass/Vol] 0.2 mg/dL Low 0.3 - 1 .2 mg/dL [facility] Calcium [Mass/Vol] 8.5 mg/dL Low 8.6 - 10. 4 mg/dL [facility] Chloride [Moles/Vol] 105 mmol/L 98 - 10 7 mmol/L [facility] CO2 [Moles/Vol] 23 mmol/L 20 - 31 mmol/L [facility] Creatinine [Mass/Vol] 0.53 mg/dL 0.50 - 0.90 mg/dL [facility] GFR/1.73 sq M.predicted MDRD (S/P/Bld) [Vol rate/Area] - [facility] Comment on above: These results are not intended for use in patients <18 years of age. eGFR results are calculated without a race factor using the 2020 CKD-EPI equation. Careful clinical correlation is recommended, particularly when comparing to results calculated using previous equations. The CKD-EPI equation is less accurate in patients with extremes of muscle mass, extra-renal metabolism of creatine, excessive creatine ingestion, or following therapy that affects renal tubular secretion. Glucose [Mass/Vol] 72 mg/dL 70 - 99 mg/dL [facility] Interpretation and review of laboratory results Abnormal [facility] Potassium [Moles/Vol] 3.8 mmol/L 3.7 - 5.3 mmol/L [facility] Protein [Mass/Vol] 7.8 g/dL 6.4 - 8.3 g/dL [facility] Sodium [Moles/Vol] 140 mmol/L 135 - 144 mmol/L [facility] Urea nitrogen (BldV) [Mass/Vol] 5 mg/dL Low 6 - 20 mg/dL [facility] HEAD WO CONTRASTon 2022 CT HEAD WO CONTRAST EXAMINATION: CT OF THE HEAD WITHOUT CONTRAST 03/12/2022 3:18 pm TECHNIQUE: CT of the head was performed without the administration of intravenous contrast. Automated exposure control, iterative reconstruction, and/or weight based adjustment of the mA/kV was utilized to reduce the radiation dose to as low as reasonably achievable. COMPARISON: None. HISTORY: ORDERING SYSTEM PROVIDED HISTORY: ams TECHNOLOGIST PROVIDED HISTORY: ams Decision Support Exception - unselect if not a suspected or confirmed emergency medical condition->Emergency Medical Condition (MA) Is the patient ?->No Reason for Exam: ams Additional signs and symptoms: patient not following directions FINDINGS: BRAIN/VENTRICLES: There is no acute intracranial hemorrhage, mass effect or midline shift. No abnormal extra-axial fluid collection. The perez-white differentiation is maintained without evidence of an acute infarct. There is no evidence of hydrocephalus. ORBITS: The visualized portion of the orbits demonstrate no acute abnormality. SINUSES: The visualized paranasal sinuses and mastoid air cells demonstrate no acute abnormality. SOFT TISSUES/SKULL: No acute abnormality of the visualized skull or soft tissues. IMPRESSION: No acute intracranial abnormality. Interpreted by: Varun Hager MD Signed by: Varun Hager MD 03/12/22 Final result Normal [facility] CT Head W/O Contraston 03-12 No acute intracrania l abnormality. [facility] EXAMINATION: CT OF THE HEAD WITHOUT CONTRAST 03/12/2022 3:18 pm TECHNIQUE: CT of the head was performed without the administration of intravenous contrast. Automated exposure control, iterative reconstruction, and/or weight based adjustment of the mA/kV was utilized to reduce the radiation dose to as low as reasonably achievable. COMPARISON: None. HISTORY: ORDERING SYSTEM PROVIDED HISTORY: ams TECHNOLOGIST PROVIDED HISTORY: ams Decision Support Exception - unselect if not a suspected or confirmed emergency medical condition->Emergency Medical Condition (MA) Is the patient ?->No Reason for Exam: ams Additional signs and symptoms: patient not following directions FINDINGS: BRAIN/VENTRICLES: There is no acute intracranial hemorrhage, mass effect or midline shift. No abnormal extra-axial fluid collection. The perez-white differentiation is maintained without evidence of an acute infarct. There is no evidence of hydrocephalus. ORBITS: The visualized portion of the orbits demonstrate no acute abnormality. SINUSES: The visualized paranasal sinuses and mastoid air cells demonstrate no acute abnormality. SOFT TISSUES/SKULL: No acute abnormality of the visualized skull or soft tissues. [facility] Varun Hager MD - 03/12/2022 EXAMINATION: CT OF THE HEAD WITHOUT CONTRAST 03/12/2022 3:18 pm TECHNIQUE: CT of the head was performed without the administration of intravenous contrast. Automated exposure control, iterative reconstruction, and/or weight based adjustment of the mA/kV was utilized to reduce the radiation dose to as low as reasonably achievable. COMPARISON: None. HISTORY: ORDERING SYSTEM PROVIDED HISTORY: ams TECHNOLOGIST PROVIDED HISTORY: ams Decision Support Exception - unselect if not a suspected or confirmed emergency medical condition->Emergency Medical Condition (MA) Is the patient ?->No Reason for Exam: ams Additional signs and symptoms: patient not following directions FINDINGS: BRAIN/VENTRICLES: There is no acute intracranial hemorrhage, mass effect or midline shift. No abnormal extra-axial fluid collection. The perez-white differentiation is maintained without evidence of an acute infarct. There is no evidence of hydrocephalus. ORBITS: The visualized portion of the orbits demonstrate no acute abnormality. SINUSES: The visualized paranasal sinuses and mastoid air cells demonstrate no acute abnormality. SOFT TISSUES/SKULL: No acute abnormality of the visualized skull or soft tissues. IMPRESSION: No acute intracranial abnormality. [facility] [employer] Work Phone: Radiology Study observation (narrative) [facility] CPM [employer] Phone: CT Head W/O ContrastOrdered By: Varun Hager on 03-12-2022 [facility] [employer] Phone: Comp Metabolic Profon 2022 Albumin [Mass/Vol] 3.6 g/dL Normal 3.5-5.2 [facility] Comment on above: Performed By: #### C DP, CP, MG, HCG, ACET, ALCB, SALI #### [facility] [address] [place] [address] Vendor Management Specialist: Foreign Page DO Alkaline Phos 123 U/L High 35-104 [facility] Comment on above: Performed By: #### C DP, CP, MG, HCG, ACET, ALCB, SALI #### [facility] [address] [place] [address] Vendor Management Specialist: Foreign Page DO ALT [Catalytic activity/Vol] 78 U/L High 5-33 [facility] Comment on above: Performed By: #### C DP, CP, MG, HCG, ACET, ALCB, SALI #### [facility] [address] [facility] [place] [address] Vendor Management Specialist: Foreign Page DO Anion gap [Moles/Vol] 12 mmol/L Normal 9-17 [facility] Comment on above: Performed By: #### C DP, CP, MG, HCG, ACET, ALCB, SALI #### [facility] [address] [facility] [place] [address] Vendor Management Specialist: Foreign Page DO AST [Catalytic activity/Vol] 143 U/L High <32 [facility] Comment on above: Performed By: #### C DP, CP, MG, HCG, ACET, ALCB, SALI #### [facility] [address] [place] [address] Vendor Management Specialist: Foreign Page DO Bilirubin [Mass/Vol] 0.2 mg/dL Low 0.3-1.2 [facility] Comment on above: Performed By: #### C DP, CP, MG, HCG, ACET, ALCB, SALI #### [facility] [address] [place] [address] Vendor Management Specialist: Foreign Page DO Calcium [Mass/Vol] 8.5 mg/dL Low 8.6-10.4 [facility] Comment on above: Performed By: #### C DP, CP, MG, HCG, ACET, ALCB, SALI #### [facility] [address] [place] [address] Vendor Management Specialist: Foreign Page DO Chloride [Moles/Vol] 105 mmol/L Normal 98-107 [facility] Comment on above: Performed By: #### C DP, CP, MG, HCG, ACET, ALCB, SALI #### [facility] [address] [place] [address] Vendor Management Specialist: Foreign Page DO CO2 [Moles/Vol] 23 mmol/L Normal 20-31 [facility] Comment on above: Performed By: #### C DP, CP, MG, HCG, ACET, ALCB, SALI #### [facility] [address] [place] [address] Vendor Management Specialist: Foreign Page DO Creatinine [Mass/Vol] 0.53 mg/dL Normal 0.50-0.90 [facility] Comment on above: Performed By: #### C DP, CP, MG, HCG, ACET, ALCB, SALI #### [facility] [address] [facility] [place] [address] Vendor Management Specialist: Foreign Page DO GFR/1.73 sq M.predicted among non-blacks MDRD (S/P/Bld) [Vol rate/Area] mL/min/{1.73_m2} Normal >60 [facility] Comment on above: Result Comment: These results are not intended for use in patients <18 years of age. eGFR results are calculated without a race factor using the 2020 CKD-EPI equation. Careful clinical correlation is recommended, particularly when comparing to results calculated using previous equations. The CKD-EPI equation is less accurate in patients with extremes of muscle mass, extra-renal metabolism of creatine, excessive creatine ingestion, or following therapy that affects renal tubular secretion. Performed By: #### C DP, CP, MG, HCG, ACET, ALCB, SALI #### [facility] [address] [facility] [place] [address] Vendor Management Specialist: Foreign Page DO Glucose [Mass/Vol] 72 mg/dL Normal 70-99 [facility] Comment on above: Performed By: #### C DP, CP, MG, HCG, ACET, ALCB, SALI #### [facility] [address] [place] [address] Vendor Management Specialist: Foreign Page DO Potassium [Moles/Vol] 3.8 mmol/L Normal 3.7-5.3 [facility] Comment on above: Performed By: #### C DP, CP, MG, HCG, ACET, ALCB, SALI #### [facility] [facility] [place] [address] Vendor Management Specialist: Foreign Page DO Protein [Mass/Vol] 7.8 g/dL Normal 6.4-8.3 [facility] Comment on above: Performed By: #### C DP, CP, MG, HCG, ACET, ALCB, SALI #### [facility] [address] [place] [address] Vendor Management Specialist: Foreign Page DO Sodium [Moles/Vol] 140 mmol/L Normal 135-144 [facility] Comment on above: Performed By: #### C DP, CP, MG, HCG, ACET, ALCB, SALI #### [facility] [place] [address] Vendor Management Specialist: Foreign Page DO Urea nitrogen [Mass/Vol] 5 mg/dL Low 6-20 [facility] Comment on above: Performed By: #### C DP, CP, MG, HCG, ACET, ALCB, SALI #### [facility] [address] [place] [address] Vendor Management Specialist: Foreign Page DO Drug Scr, Abuse, Uron 2022 Amphetamine(s),Ur Negative Normal NEG [facility] Comment on above: Result Comment: (Positive cutoff 1000 ng/mL) Performed By: #### Nessa AX, AKUSHAL #### [facility] [address] [place] [address] Vendor Management Specialist: Foreign Page DO Barbiturate(s),Ur Negative Normal NEG [facility] Comment on above: Result Comment: (Positive cutoff 200 ng/mL) Performed By: #### U AX, KAUSHAL #### [facility] [address] [place] [address] Vendor Management Specialist: Foreign Page DO Benzodiazepine(s) Negative Normal NEG [facility] Comment on above: Result Comment: (Positive cutoff 200 ng/mL) Performed By: #### U AX, KAUSHAL #### [facility] [address] [place] [address] Vendor Management Specialist: Foreign Page DO Cannabinoid(s),Ur Negative Normal NEG [facility] Comment on above: Result Comment: (Positive cutoff 50 ng/mL) Performed By: #### U AX, KAUSHAL #### [facility] [address] [place] [address] Vendor Management Specialist: Foreign Page DO Cocaine Metabolite Negative Normal NEG [facility] Comment on above: Result Comment: (Positive cutoff 300 ng/mL) Performed By: #### U AX, KAUSHAL #### [facility] [address] [place] [address] Vendor Management Specialist: Foreign Page DO Fentanyl, Urine Negative Normal NEG [facility] Comment on above: Result Comment: (Positive cutoff 5 ng/ml) Performed By: #### U AX, KAUSHAL #### [facility] [address] [place] [address] Vendor Management Specialist: Foreign Page DO Interpretive Info Assay provides medic al screening only. The absence of expected drug(s) and/or Normal [facility] Comment on above: Result Comment: meta bolite(s) may indicate diluted or adulterated urine, limitations of testing or timing of collection. Testing for legal purposes should be confirmed by another method. To request confirmation of test result, please call the lab within 7 days of sample submission. Performed By: #### U AX, KAUSHAL #### [facility] [address] [place] [address] Vendor Management Specialist: Foreign Page DO Methadone Ql (U) Positive Abnormal NEG [facility] Comment on above: Result Comment: (Positive cutoff 300 ng/mL) Performed By: #### U AX, KAUSHAL #### [facility] [address] [place] [address] Vendor Management Specialist: Foreign Page DO Opiate(s), Ur Negative Normal NEG [facility] Comment on above: Result Comment: (Positive cutoff 300 ng/mL) Performed By: #### U AX, KAUSHAL #### [facility] [address] [place] [address] Vendor Management Specialist: Foreign Page DO Oxycodone, Urine Negative Normal NEG [facility] Comment on above: Result Comment: (Positive cutoff 100 ng/mL) Performed By: #### U AX, KAUSHAL #### [facility] [address] [place] [address] Vendor Management Specialist: Foreign Page DO Phencyclidine, Ur Negative Normal NEG [facility] Comment on above: Result Comment: (Positive cutoff 25 ng/mL) Performed By: #### U AX, KAUSHAL #### [facility] [place] [address] Vendor Management Specialist: Foreign Page DO ED Note-Physicianon 03-12-19 ED Note-Physician [id number]: 127 Normal [facility] ETOHon 03-12-2022 Ethanol [Mass/Vol] 358 mg/dL Critically high NINF - 10 mg/dL [facility] Ethanol percent 0.358 % [facility] Ethanol Alcoholon 03-12-2022 Ethanol [Mass/Vol] 358 mg/dL Critically high <10 M [facility] Comment on above: Performed By: #### C DP, CP, MG, HCG, ACET, ALCB, SALI #### [facility] [address] [place] [address] Vendor Management Specialist: Foreign Page DO Ethanol percent 0.358 % [facility] Comment on above: Performed By: #### C DP, CP, MG, HCG, ACET, ALCB, SALI #### [facility] [address] [place] [address] Vendor Management Specialist: Foreign Page DO HCG Qualitative, Serumon hCG Qual Negative NEGATIVE [facility] Comment on above: Specimens with hCG l evels near the threshold of the test (25 mIU/mL) may give a negative or indeterminate result. In such cases, another test should be performed with a new specimen in 48-72 hours. If early is suspected clinically in this setting, correlation with quantitative serum b-hCG level is suggested. [facility] HCG Screen, Bloodon 03-12-19 23 HCG Screen, Blood Negative Normal NEG [facility] Comment on above: Result Comment: Spec imens with hCG levels near the threshold of the test (25 mIU/mL) may give a negative or indeterminate result. In such cases, another test should be performed with a new specimen in 48-72 hours. If early is suspected clinically in this setting, correlation with quantitative serum b-hCG level is suggested. Performed By: #### C DP, CP, MG, HCG, ACET, ALCB, SALI #### [facility] [address] [facility] [place] [address] Vendor Management Specialist: Foreign Page DO Magnesiumon 03-12-2022 Magnesium [Mass/Vol] 2.0 mg/dL Normal 1.6-2.6 [facility] Comment on above: Performed By: #### C DP, CP, MG, HCG, ACET, ALCB, SALI #### [facility] [address] [facility] [place] [address] Vendor Management Specialist: Foreign Page DO Magnesium [Mass/Vol] 2.0 mg/dL 1.6 - 2 .6 mg/dL [facility] No Panel Informationon 03-12 Interpretation and review of laboratory results Abnormal [facility] Salicylateon 03-12-2022 Salicylate <1 Low 3-10 [facility] Comment on above: Performed By: #### C DP, CP, MG, HCG, ACET, ALCB, SALI #### [facility] [address] [facility] [place] [address] Vendor Management Specialist: Foreign Page DO Salicylate Lvl mg/dL Low 3 - 10 mg/dL [facility] UA w/Reflex Cultureon 2022 Bilirubin, SemiQt,Ur Negative Normal NEG [facility] Comment on above: Performed By: #### U AX, KAUSHAL #### [facility] [address] [place] [address] Vendor Management Specialist: Foreign Page DO Blood, Urine Negative Normal NEG [facility] Comment on above: Performed By: #### U AX, KAUSHAL #### [facility] [place] [address] Vendor Management Specialist: Foreign Page DO Clarity (U) Clear Normal CLEAR [facility] Comment on above: Performed By: #### U AX, KAUSHAL #### [facility] [address] [place] [address] Vendor Management Specialist: Foreign Page DO Color (U) Yellow Normal YEL [facility] Comment on above: Performed By: #### U AX, KAUSHAL #### [facility] [address] [place] [address] Vendor Management Specialist: Foreign Page DO Comment Microscopic exam not performed based on chemical results unless requested in Normal [facility] Comment on above: Result Comment: orig inal order. Performed By: #### U AX, KAUSHAL #### [facility] [place] [address] Vendor Management Specialist: Foreign Page DO Glucose Ql (U) Negative Normal NEG [facility] Comment on above: Performed By: #### U AX, KAUSHAL #### [facility] [address] [place] [address] Vendor Management Specialist: Foreign Page DO Ketones Ql (U) Negative Normal NEG [facility] Comment on above: Performed By: #### U AX, KAUSHAL #### [facility] [place] [address] Vendor Management Specialist: Foreign Page DO Leukocyte esterase Test strip Ql (U) Negative Normal NEG [facility] Comment on above: Performed By: #### U AX, KAUSHAL #### [facility] [address] [place] [address] Vendor Management Specialist: Foreign Page DO Nitrite,Ur Negative Normal NEG [facility] Comment on above: Performed By: #### U AX, KAUSHAL #### [facility] [address] [place] [address] Vendor Management Specialist: Foreign Page DO PH,Ur 6.0 Normal 5.0-8.0 [facility] Comment on above: Performed By: #### U AX, KAUSHAL #### [facility] [address] [place] [address] Vendor Management Specialist: Foreign Page DO Protein Ql (U) Negative Normal NEG [facility] Comment on above: Performed By: #### U AX, KAUSHAL #### [facility] [address] [place] [address] Vendor Management Specialist: Foreign Page DO Spec. [place],Ur 1.009 Normal 1.000-1.030 [facility] Comment on above: Performed By: #### U AX, KAUSHAL #### [facility] [address] [place] [address] Vendor Management Specialist: Foreign Page DO Urobilinogen,Ur Normal Normal NORM [facility] Comment on above: Performed By: #### U AX, KAUSHAL #### [facility] [address] [place] [address] Vendor Management Specialist: Fanelly, Foreign, DO Urinalysis with Reflex to Cu ltureon 03-12-2022 Bilirubin Urine Negative NEGATIVE [facility] Color, UA Yellow Yellow [facility] Glucose, Ur Negative NEGATIVE [facility] Ketones Ql (U) Negative NEGATIVE [facility] Leukocyte esterase Test strip Ql (U) Negative NEGATIVE [facility] Nitrite, Urine Negative NEGATIVE [facility] pH, UA 6.0 5.0 - 8.0 [facility] Protein, UA Negative NEGATIVE [facility] Specific [place], UA 1.009 1.000 - 1.030 [facility] Turbidity UA Clear Clear [facility] Urinalysis Comments Microscopic exam not performed based on chemical results unless requested in original order. [facility] Urine Hgb Negative NEGATIVE [facility] Urobilinogen, Urine Normal Normal [facility] Urine Drug Screenon 03-12-19 Amphetamine Screen, Ur Negative NEGATIVE [facility] Comment on above: (Positive cutoff 1000 ng/mL) Barbiturate Screen, Ur Negative NEGATIVE [facility] Comment on above: (Positive cutoff 200 ng/mL) Benzodiazepine Screen, Urine Negative NEGATIVE [facility] Comment on above: (Positive cutoff 200 ng/mL) Cannabinoid Scrn, Ur Negative NEGATIVE [facility] Comment on above: (Positive cutoff 50 ng/mL) Cocaine Metabolite, Urine Negative NEGATIVE [facility] Comment on above: (Positive cutoff 300 ng/mL) Fentanyl, Ur Negative NEGATIVE [facility] Comment on above: (Positive cutoff 5 ng/ml) Interpretation and review of laboratory results Abnormal [facility] Methadone Screen, Urine Positive Abnormal NEGATIVE [facility] Comment on above: (Positive cutoff 300 ng/mL) Opiates, Urine Negative NEGATIVE [facility] Comment on above: (Positive cutoff 300 ng/mL) Oxycodone Screen, Ur Negative NEGATIVE [facility] Comment on above: (Positive cutoff 100 ng/mL) Phencyclidine, Urine Negative NEGATIVE [facility] Comment on above: (Positive cutoff 25 ng/mL) Test Information Assay provides medic al screening only. The absence of expected drug(s) and/or metabolite(s) may indicate diluted or adulterated urine, limitations of testing or timing of collection. [facility] Comment on above: Testing for legal pu rposes should be confirmed by another method. To request confirmation of test result, please call the lab within 7 days of sample submission. [facility] ED Note-Physicianon 03-08-19 ED Note-Physician [id number]: 127 Normal [facility] Amphetamine Screen Ql (U)Ord ered By: Ari Aguero on 03-05-2022 Amphetamines Ql (U) Negative Negative [facility] Barbiturates [Presence] in U rineOrdered By: Ari Aguero on 03-05-2022 Barbiturates Ql (U) Negative Negative [facility] Basophils Auto (Bld) [#/Vol] Ordered By: Ari Aguero on 03-05-2022 Basophils (Bld) [#/Vol] 0.1 10*3/uL 0.0-0.2 [facility] Basophils/100 WBC Auto (Bld) Ordered By: Ari Aguero on 03-05-2022 Basophils/100 WBC (Bld) 0.6 % . [facility] Benzodiazepines [Presence] i n UrineOrdered By: Ari Aguero on 03-05-2022 Benzodiazepines Ql (U) Negative Negative [facility] Bilirubin Test strip Ql (U)O rdered By: Ari Aguero on 03-05-2022 Bilirubin Ql (U) Negative Negative [facility] Body fluid albumin measureme nt (mass/volume)Ordered By: Ari Aguero on 03-05-2022 Albumin (Body fld) [Mass/Vol] 3.3 g/dL 3.2-5.5 [facility] Cannabinoids [Presence] in U rine by Screen methodOrdered By: Ari Aguero on 03-05-2022 Cannabinoids Screen Ql (U) Negative Negative [facility] Comment on above: These are unconfirme d results and should not be used for legal purposes. Drug Cut-Off Concentration: AMPH 1000 ng/mL JANELL 200 ng/mL JAMES 200 ng/mL COCM 300 ng/mL OP 300 ng/mL PCP 25 ng/mL THC 20 ng/mL Color Auto (U)Ordered By: Robin duncan More on 03-05-2022 Color (U) Yellow Yellow [facility] Complete Blood Count Auto Di ffon 03-05-2022 Basophils (Bld) [#/Vol] 0.1 10*3/uL Normal 0.0-0.2 [facility] Comment on above: Result Comment: PERF ORMED BY: [place] [address] PATHOLOGIST FOOD AND BEVERAGE COORDINATOR LEE CARDOSO M.D. Performed By: #### H S TROP, CBC, DDIMER, PP, MG, BMP #### [address] Basophils/100 WBC (Bld) 0.6 % Normal . [facility] Comment on above: Performed By: #### H S TROP, CBC, DDIMER, PP, MG, BMP #### [address] Eosinophils (Bld) [#/Vol] 0.1 10*3/uL Normal 0.0-0.45 [facility] Comment on above: Performed By: #### H S TROP, CBC, DDIMER, PP, MG, BMP #### [address] Eosinophils/100 WBC (Bld) 1.1 % Normal . [facility] Comment on above: Performed By: #### H S TROP, CBC, DDIMER, PP, MG, BMP #### [facility] [address] [place] [address] Erythrocyte distribution width (RBC) [Ratio] 13.0 % Normal 11.9-15.3 [facility] Comment on above: Performed By: #### H S TROP, CBC, DDIMER, PP, MG, BMP #### [address] Hematocrit (Bld) [Volume fraction] 42.0 % Normal 34.0-46.4 [facility] Comment on above: Performed By: #### H S TROP, CBC, DDIMER, PP, MG, BMP #### [address] Hemoglobin (Bld) [Mass/Vol] 14.0 g/dL Normal 11.8-15.4 [facility] Comment on above: Performed By: #### H S TROP, CBC, DDIMER, PP, MG, BMP #### [address] Lymphocytes (Bld) [#/Vol] 3.2 10*3/uL Normal 1.00-4.8 [facility] Comment on above: Performed By: #### H S TROP, CBC, DDIMER, PP, MG, BMP #### [address] Lymphocytes/100 WBC (Bld) 27.3 % Normal . [facility] Comment on above: Performed By: #### H S TROP, CBC, DDIMER, PP, MG, BMP #### [address] MCH (RBC) [Entitic mass] 31.0 pg Normal 24.7-34.3 [facility] Comment on above: Performed By: #### H S TROP, CBC, DDIMER, PP, MG, BMP #### [address] MCV (RBC) [Entitic vol] 93.1 fL Normal 80-100 [facility] Comment on above: Performed By: #### H S TROP, CBC, DDIMER, PP, MG, BMP #### [address] Mean Corpuscular HGB Conc 33.3 g/dL Normal 32.0-35.0 [facility] Comment on above: Performed By: #### H S TROP, CBC, DDIMER, PP, MG, BMP #### [address] Monocytes (Bld) [#/Vol] 0.7 10*3/uL Normal 0.0-0.8 [facility] Comment on above: Performed By: #### H S TROP, CBC, DDIMER, PP, MG, BMP #### [place] [address] [place] Monocytes/100 WBC (Bld) 19.04 % Normal 0.00-20.00 [facility] Comment on above: Performed By: #### H S TROP, CBC, DDIMER, PP, MG, BMP #### [address] Monocytes/100 WBC (Bld) 5.9 % Normal . [facility] Comment on above: Performed By: #### H S TROP, CBC, DDIMER, PP, MG, BMP #### [address] Neutrophils (Bld) [#/Vol] 7.6 10*3/uL Normal 1.8-7.7 [facility] Comment on above: Performed By: #### H S TROP, CBC, DDIMER, PP, MG, BMP #### [address] Neutrophils/100 WBC (Bld) 65.1 % Normal . [facility] Comment on above: Performed By: #### H S TROP, CBC, DDIMER, PP, MG, BMP #### [address] NRBC% 0.1 /100{WBC} Normal 0-0.5 [facility] Comment on above: Performed By: #### H S TROP, CBC, DDIMER, PP, MG, BMP #### [place] [address] [place] Platelet mean volume (Bld) [Entitic vol] 7.7 fL Normal 6.3-10.7 [facility] Comment on above: Performed By: #### H S TROP, CBC, DDIMER, PP, MG, BMP #### [place] [address] [place] Platelets (Bld) [#/Vol] 277 10*3/uL Normal 150-450 [facility] Comment on above: Performed By: #### H S TROP, CBC, DDIMER, PP, MG, BMP #### [facility] [address] [place] [address] RBC (Bld) [#/Vol] 4.51 10*6/uL Normal 3.60-5.00 [facility] Comment on above: Performed By: #### H S TROP, CBC, DDIMER, PP, MG, BMP #### [address] WBC (Bld) [#/Vol] 11.6 10*3/uL Normal 3.8-11.6 [facility] Comment on above: Performed By: #### H S TROP, CBC, DDIMER, PP, MG, BMP #### [address] Comprehensive Metabolic Pane mary beth 03-05-2022 Albumin [Mass/Vol] 3.3 g/dL Normal 3.2-5.5 [facility] Comment on above: Performed By: #### H S TROP, CBC, DDIMER, PP, MG, BMP #### [address] Albumin/Globulin [Mass ratio] 0.8 {ratio} Normal [facility] Comment on above: Performed By: #### H S TROP, CBC, DDIMER, PP, MG, BMP #### [address] ALP [Catalytic activity/Vol] 94 U/L High 32-92 [facility] Comment on above: Performed By: #### H S TROP, CBC, DDIMER, PP, MG, BMP #### [address] ALT [Catalytic activity/Vol] 106 U/L High 10-60 [facility] Comment on above: Performed By: #### H S TROP, CBC, DDIMER, PP, MG, BMP #### [address] Anion gap [Moles/Vol] 14.1 mmol/L Normal 6.0-15.0 [facility] Comment on above: Performed By: #### H S TROP, CBC, DDIMER, PP, MG, BMP #### [facility] [address] AST [Catalytic activity/Vol] 146 U/L High 10-42 [facility] Comment on above: Performed By: #### H S TROP, CBC, DDIMER, PP, MG, BMP #### [facility] [address] [place] [address] Bilirubin [Mass/Vol] 0.4 mg/dL Normal 0.3-1.2 [facility] Comment on above: Performed By: #### H S TROP, CBC, DDIMER, PP, MG, BMP #### [facility] [address] [place] [address] Calcium [Mass/Vol] 8.9 mg/dL Normal 8.2-10.2 [facility] Comment on above: Performed By: #### H S TROP, CBC, DDIMER, PP, MG, BMP #### [facility] [address] [place] [address] Chloride [Moles/Vol] 105 mmol/L Normal 95-114 [facility] Comment on above: Performed By: #### H S TROP, CBC, DDIMER, PP, MG, BMP #### [address] CO2 [Moles/Vol] 22.6 mmol/L Normal 22.0-30.0 [facility] Comment on above: Performed By: #### H S TROP, CBC, DDIMER, PP, MG, BMP #### [facility] [address] [place] [address] Creatinine [Mass/Vol] 0.50 mg/dL Normal 0.44-1.03 [facility] Comment on above: Performed By: #### H S TROP, CBC, DDIMER, PP, MG, BMP #### [facility] [address] [place] [address] Creatinine Clr Calc Pharmacy 158.18 Normal [facility] Comment on above: Result Comment: PERF ORMED BY: [place] [address] PATHOLOGIST FOOD AND BEVERAGE COORDINATOR LEE CARDOSO M.D. Performed By: #### H S TROP, CBC, DDIMER, PP, MG, BMP #### [address] Estimated GFR ( Faye > 60 [facility] Comment on above: Result Comment: GFR estimated reference range: According to KDOQI guidelines, <60 ml/min/1.73m2 is sufficient to diagnose a patient with chronic kidney disease. Performed By: #### H S TROP, CBC, DDIMER, PP, MG, BMP #### [address] Estimated GFR (Non- Am > 60 [facility] Comment on above: Performed By: #### H S TROP, CBC, DDIMER, PP, MG, BMP #### [address] Globulin (S) [Mass/Vol] 4.2 g/dL [facility] Comment on above: Performed By: #### H S TROP, CBC, DDIMER, PP, MG, BMP #### [address] Glucose [Mass/Vol] 83 mg/dL Normal 70-100 [facility] Comment on above: Result Comment: [place] Glucose Reference Range is dependent on time and content of last meal. Glucose of more than 200 mg/dL in a nonstressed, ambulatory subject supports the diagnosis of Diabetes Mellitus. ADA recommended reference range Performed By: #### H S TROP, CBC, DDIMER, PP, MG, BMP #### [address] Potassium [Moles/Vol] 3.7 mmol/L Normal 3.5-5.1 [facility] Comment on above: Performed By: #### H S TROP, CBC, DDIMER, PP, MG, BMP #### [address] Protein [Mass/Vol] 7.5 g/dL Normal 6.1-7.9 [facility] Comment on above: Performed By: #### H S TROP, CBC, DDIMER, PP, MG, BMP #### [facility] [address] Sodium [Moles/Vol] 138 mmol/L Normal 136-146 [facility] Comment on above: Performed By: #### H S TROP, CBC, DDIMER, PP, MG, BMP #### [facility] [address] Urea nitrogen [Mass/Vol] 3 mg/dL Low 11-03 [facility] Comment on above: Performed By: #### H S TROP, CBC, DDIMER, PP, MG, BMP #### [address] Creatinine and Glomerular fi ltration rate.predicted panel (S/P/Bld)Ordered By: Ari Aguero on 03-05-2022 Creatinine [Mass/Vol] 0.50 mg/dL 0.44-1.03 [facility] Drug Screen,Urineon 03-05-19 Amphetamine Screen,Urine Negative Normal Negative [facility] Comment on above: Performed By: #### H S TROP, CBC, DDIMER, PP, MG, BMP #### [address] Barbiturate Screen,Urine Negative Normal Negative [facility] Comment on above: Performed By: #### H S TROP, CBC, DDIMER, PP, MG, BMP #### [facility] [address] [place] [address] Benzodiazepines Screen,Urine Negative Normal Negative [facility] Comment on above: Performed By: #### H S TROP, CBC, DDIMER, PP, MG, BMP #### [facility] [address] [place] [address] Cannabinoid Screen,Urine Negative Normal Negative [facility] Comment on above: Result Comment: Thes e are unconfirmed results and should not be used for legal purposes. Drug Cut-Off Concentration: AMPH 1000 ng/mL JANELL 200 ng/mL JAMES 200 ng/mL COCM 300 ng/mL OP 300 ng/mL PCP 25 ng/mL THC 20 ng/mL PERFORMED BY: [place] [address] PATHOLOGIST FOOD AND BEVERAGE COORDINATOR LEE CARDOSO M.D. Performed By: #### H S TROP, CBC, DDIMER, PP, MG, BMP #### [facility] [address] Cocaine Screen,Urine Positive High Negative [facility] Comment on above: Performed By: #### H S TROP, CBC, DDIMER, PP, MG, BMP #### [facility] [address] Opiate Screen,Urine Negative Normal Negative [facility] Comment on above: Performed By: #### H S TROP, CBC, DDIMER, PP, MG, BMP #### [facility] [address] Phencyclidine Screen,Urine Negative Normal Negative [facility] Comment on above: Performed By: #### H S TROP, CBC, DDIMER, PP, MG, BMP #### [facility] [address] Eosinophils Auto (Bld) [#/Vo l]Ordered By: Ari Aguero on 03-05-2022 Eosinophils (Bld) [#/Vol] 0.1 10*3/uL 0.0-0.45 [facility] Eosinophils/100 WBC Auto (Bl d)Ordered By: Ari Aguero on 03-05-2022 Eosinophils/100 WBC (Bld) 1.1 % . [facility] Erythrocyte distribution wid th Auto (RBC) [Ratio]Ordered By: Ari Aguero on 03-05-2022 Erythrocyte distribution width (RBC) [Ratio] 13.0 % 11.9-15.3 [facility] Estimated glomerular filtrat ion rate (GFR) non- AmericanOrdered By: Ari Aguero on 03-05-2022 GFR/1.73 sq M.predicted among non-blacks MDRD (S/P/Bld) [Vol rate/Area] > 60 mL/Min [facility] Ethyl Alcohol Profileon 02-12 Ethanol [Mass/Vol] 277 mg/dL Normal [facility] Comment on above: Performed By: #### H S TROP, CBC, DDIMER, PP, MG, BMP #### [facility] [address] [place] [address] Percent Ethanol 0.277 % Normal [facility] Comment on above: Result Comment: PERF ORMED BY: [place] [address] PATHOLOGIST FOOD AND BEVERAGE COORDINATOR LEE CARDOSO M.D. Performed By: #### H S TROP, CBC, DDIMER, PP, MG, BMP #### [facility] [address] [place] [address] Globulin Calc (S) [Mass/Vol] Ordered By: Ari Aguero on 03-05-2022 Globulin (S) [Mass/Vol] 4.2 g/dL [facility] HCG ( test) [place].rapi d Ql (U)Ordered By: Ari Agureo on 03-05-2022 HCG ( test) Ql (U) Negative [facility] HCG,Urineon 03-05-2022 Beta HCG ( test) Ql (U) Negative Normal [facility] Comment on above: Order Comment: Name Collection Type:: Clean-Voided Midstream Result Comment: PERF ORMED BY: [place] [address] PATHOLOGIST FOOD AND BEVERAGE COORDINATOR LEE CARDOSO M.D. Performed By: #### H S TROP, CBC, DDIMER, PP, MG, BMP #### [facility] [address] [place] [address] Hematocrit Auto (Bld) [Volum e fraction]Ordered By: Ari Aguero on 03-05-2022 Hematocrit (Bld) [Volume fraction] 42.0 % 34.0-46.4 [facility] Hemoglobin [Mass/volume] in BloodOrdered By: Ari Aguero on 03-05-2022 Hemoglobin (Bld) [Mass/Vol] 14.0 g/dL 11.8-15.4 [facility] Ketones Auto test strip (U) [Mass/Vol]Ordered By: Ari Aguero on 03-05-2022 Ketones (U) [Mass/Vol] Negative Negative [facility] Laboratory - Drug toxicology Ordered By: Ari Aguero on 03-05-2022 Opiates Ql (U) Negative Negative [facility] Leukocytes [#/volume] correc jose for nucleated erythrocytes in Blood by Automated counOrdered By: Ari Aguero on 03-05-2022 WBC corrected for nucl RBC Auto (Bld) [#/Vol] 11.6 10*3/uL 3.8-11.6 [facility] Lymphocytes Auto (Bld) [#/Vo l]Ordered By: Ari Aguero on 03-05-2022 Lymphocytes (Bld) [#/Vol] 3.2 10*3/uL 1.00-4.8 [facility] Lymphocytes/100 WBC Auto (Bl d)Ordered By: Ari Aguero on 03-05-2022 Lymphocytes/100 WBC (Bld) 27.3 % . [facility] MCH Auto (RBC) [Entitic mass ]Ordered By: Ari Aguero on 03-05-2022 MCH (RBC) [Entitic mass] 31.0 pg 24.7-34.3 [facility] MCHC Auto (RBC) [Mass/Vol]Or dered By: Ari Aguero on 03-05-2022 MCHC (RBC) [Mass/Vol] 33.3 g/dL 32.0-35.0 [facility] MCV Auto (RBC) [Entitic vol] Ordered By: Ari Aguero on 03-05-2022 MCV (RBC) [Entitic vol] 93.1 fL 80-100 [facility] Monocyte distribution width [Entitic volume] in Blood by AutomatedOrdered By: Ari Aguero on 03-05-2022 Monocyte distribution width Auto (Bld) [Entitic vol] 19.04 % 0.00-20.00 [facility] Monocytes Auto (Bld) [#/Vol] Ordered By: Ari Aguero on 03-05-2022 Monocytes (Bld) [#/Vol] 0.7 10*3/uL 0.0-0.8 [facility] Monocytes/100 WBC Auto (Bld) Ordered By: Ari Aguero on 03-05-2022 Monocytes/100 WBC (Bld) 5.9 % . [facility] Neutrophils Auto (Bld) [#/Vo l]Ordered By: Ari Aguero on 03-05-2022 Neutrophils (Bld) [#/Vol] 7.6 10*3/uL 1.8-7.7 [facility] Neutrophils/100 WBC Auto (Bl d)Ordered By: Ari Aguero on 03-05-2022 Neutrophils/100 WBC (Bld) 65.1 % . [facility] Nitrite Test strip Ql (U)Ord ered By: Ari Aguero on 03-05-2022 Nitrite Ql (U) Negative Negative [facility] No Panel InformationOrdered By: Ari Aguero on 03-05-2022 Estimated GFR () > 60 mL/Min [facility] Comment on above: GFR estimated refere nce range: According to KDOQI guidelines, <60 ml/min/1.73m2 is sufficient to diagnose a patient with chronic kidney disease. Pharmacy Creatinine Clearance (Chem 158.18 [facility] Nucleated erythrocytes [Pres ence] in Blood by Automated countOrdered By: Ari Aguero on 03-05-2022 Nucleated RBC Auto Ql (Bld) 0.1 /100{WBC} 0-0.5 [facility] Phencyclidine Screen Ql (U)O rdered By: Ari Aguero on 03-05-2022 Phencyclidine Ql (U) Negative Negative [facility] Platelet mean volume Auto (B ld) [Entitic vol]Ordered By: Ari Aguero on 03-05-2022 Platelet mean volume (Bld) [Entitic vol] 7.7 fL 6.3-10.7 [facility] Platelets Auto (Bld) [#/Vol] Ordered By: Ari Aguero on 03-05-2022 Platelets (Bld) [#/Vol] 277 10*3/uL 150-450 [facility] Protein Auto test strip (U) [Mass/Vol]Ordered By: Ari Aguero on 03-05-2022 Protein (U) [Mass/Vol] Negative Negative [facility] Protein [Mass/volume] in Ser um or PlasmaOrdered By: Ari Aguero on 03-05-2022 Protein [Mass/Vol] 7.5 g/dL 6.1-7.9 [facility] RBC Auto (Bld) [#/Vol]Ordere d By: Ari Aguero on 03-05-2022 RBC (Bld) [#/Vol] 4.51 10*6/uL 3.60-5.00 [facility] Serum or plasma alanine urbina otransferase measurement without P-5'-P (enzymatic activiOrdered By: Ari Aguero on 03-05-2022 ALT No additional P-5'-P [Catalytic activity/Vol] 106 U/L 10-60 [facility] Serum or plasma albumin/glob ulin mass ratioOrdered By: Ari Aguero on 03-05-2022 Albumin/Globulin [Mass ratio] 0.8 {ratio} [facility] Serum or plasma alkaline maya sphatase measurement (enzymatic activity/volume)Ordered By: Ari Aguero on 03-05-2022 ALP [Catalytic activity/Vol] 94 U/L 32-92 [facility] Serum or plasma anion gap de terminationOrdered By: Ari Aguero on 03-05-2022 Anion gap [Moles/Vol] 14.1 mmol/L 6.0-15.0 [facility] Serum or plasma aspartate am inotransferase measurement (enzymatic activity/volume)Ordered By: Ari Aguero on 03-05-2022 AST [Catalytic activity/Vol] 146 U/L 10-42 [facility] Serum or plasma calcium judi urement (mass/volume)Ordered By: Ari Aguero on 03-05-2022 Calcium [Mass/Vol] 8.9 mg/dL 8.2-10.2 [facility] Serum or plasma chloride nataliia surement (moles/volume)Ordered By: Ari Aguero on 03-05-2022 Chloride [Moles/Vol] 105 mmol/L 95-114 [facility] Serum or plasma ethanol judi urement (mass/volume)Ordered By: Ari Aguero on 03-05-2022 Ethanol [Mass/Vol] 277 mg/dL [facility] Ethanol [Mass/Vol] 0.277 % [facility] Serum or plasma glucose judi urement (mass/volume)Ordered By: Ari Aguero on 03-05-2022 Glucose [Mass/Vol] 83 mg/dL 70-100 [facility] Comment on above: ADA recommended refe rence rangeRandom Glucose Reference Range is dependent on time and content of last meal. Glucose of more than 200 mg/dL in a nonstressed, ambulatory subject supports the diagnosis of Diabetes Mellitus. Serum or plasma potassium me asurement (moles/volume)Ordered By: Ari Aguero on 03-05-2022 Potassium [Moles/Vol] 3.7 mmol/L 3.5-5.1 [facility] Serum or plasma sodium measu rement (moles/volume)Ordered By: Ari Aguero on 03-05-2022 Sodium [Moles/Vol] 138 mmol/L 136-146 [facility] Serum or plasma total biliru bin measurement (mass/volume)Ordered By: Ari Aguero on 03-05-2022 Bilirubin [Mass/Vol] 0.4 mg/dL 0.3-1.2 [facility] Serum or plasma total carbon dioxide measurement (moles/volume)Ordered By: Ari Aguero on 03-05-2022 CO2 [Moles/Vol] 22.6 mmol/L 22.0-30.0 [facility] Serum or plasma urea nitroge n measurement (mass/volume)Ordered By: Ari Aguero on 03-05-2022 Urea nitrogen [Mass/Vol] 3 mg/dL 11-03 [facility] Specific gravity Auto test s trip (U) [Rel density]Ordered By: Ari Aguero on 03-05-2022 Specific gravity (U) [Rel density] 1.008 1.001-1.030 [facility] Urinalysison 03-05-2022 Appearance (U) Clear Normal Clear [facility] Comment on above: Order Comment: Name Collection Type:: Clean-Voided Midstream Performed By: #### H S TROP, CBC, DDIMER, PP, MG, BMP #### [facility] [address] Bilirubin,Urine Negative Normal Negative [facility] Comment on above: Order Comment: Name Collection Type:: Clean-Voided Midstream Performed By: #### H S TROP, CBC, DDIMER, PP, MG, BMP #### [facility] [address] [place] [address] Color (U) Yellow Normal Yellow [facility] Comment on above: Order Comment: Name Collection Type:: Clean-Voided Midstream Performed By: #### H S TROP, CBC, DDIMER, PP, MG, BMP #### [facility] [address] [place] [address] Glucose Ql (U) Normal Normal Normal [facility] Comment on above: Order Comment: Name Collection Type:: Clean-Voided Midstream Performed By: #### H S TROP, CBC, DDIMER, PP, MG, BMP #### [address] Ketones Ql (U) Negative Normal Negative [facility] Comment on above: Order Comment: Name Collection Type:: Clean-Voided Midstream Performed By: #### H S TROP, CBC, DDIMER, PP, MG, BMP #### [address] Leukocyte esterase Test strip Ql (U) Negative Normal Negative [facility] Comment on above: Order Comment: Name Collection Type:: Clean-Voided Midstream Performed By: #### H S TROP, CBC, DDIMER, PP, MG, BMP #### [facility] [address] [place] [address] [place] Nitrite,Urine Negative Normal Negative [facility] Comment on above: Order Comment: Name Collection Type:: Clean-Voided Midstream Performed By: #### H S TROP, CBC, DDIMER, PP, MG, BMP #### [facility] [address] [place] [address] [place] Occult Blood,Urine Negative Normal Negative [facility] Comment on above: Order Comment: Name Collection Type:: Clean-Voided Midstream Performed By: #### H S TROP, CBC, DDIMER, PP, MG, BMP #### [facility] [address] [place] [address] [place] pH (U) 5.5 [pH] Normal 5.0-9.0 [facility] Comment on above: Order Comment: Name Collection Type:: Clean-Voided Midstream Performed By: #### H S TROP, CBC, DDIMER, PP, MG, BMP #### [facility] [address] [place] [address] Protein,Urine Negative Normal Negative [facility] Comment on above: Order Comment: Name Collection Type:: Clean-Voided Midstream Performed By: #### H S TROP, CBC, DDIMER, PP, MG, BMP #### [facility] [address] [place] [address] Specificy [place],Urine 1.008 Normal 1.001-1.030 [facility] Comment on above: Order Comment: Name Collection Type:: Clean-Voided Midstream Performed By: #### H S TROP, CBC, DDIMER, PP, MG, BMP #### [facility] [address] [place] [address] Urobilinogen,Urine Normal Normal Normal [facility] Comment on above: Order Comment: Name Collection Type:: Clean-Voided Midstream Performed By: #### H S TROP, CBC, DDIMER, PP, MG, BMP #### [facility] [address] [place] [address] Urine clarity by refractomet ry automatedOrdered By: Ari Aguero on 03-05-2022 Clarity Refractometry automated (U) Clear Clear [facility] Urine cocaine detectionOrder ed By: Ari Aguero on 03-05-2022 Cocaine Ql (U) Positive Negative [facility] Urine glucose measurement by automated test strip (mass/volume)Ordered By: Ari Aguero on 03-05-2022 Glucose Auto test strip (U) [Mass/Vol] Normal mg/dL Normal [facility] Urine hemoglobin detection b y automated test stripOrdered By: Ari Aguero on 03-05-2022 Hemoglobin Auto test strip Ql (U) Negative Negative [facility] Urine leukocyte esterase det ection by automated test stripOrdered By: Ari Aguero on 03-05-2022 Leukocyte esterase Auto test strip Ql (U) Negative Negative [facility] Urobilinogen Auto test strip (U) [Mass/Vol]Ordered By: Ari Aguero on 03-05-2022 Urobilinogen (U) [Mass/Vol] Normal mg/dL Normal [facility] WBC Auto (Bld) [#/Vol]Ordere d By: Ari Aguero on 03-05-2022 WBC (Bld) [#/Vol] 11.6 10*3/uL 3.8-11.6 [facility] pH Auto test strip (U)Ordere d By: Ari Aguero on 03-05-2022 pH (U) 5.5 [pH] 5.0-9.0 [facility] ED Note-Physicianon 02-26-19 ED Note-Physician [id number]: 127 Normal [facility] ED Note-Physicianon 02-22-19 ED Note-Physician [id number] [id number]: 127 Normal [facility] Coding Summary.on 02-21-2022 Coding Summary. Normal [facility] Amphetamine Screen Ql (U)Ord ered By: Declan Marina on 02-20-2022 Amphetamines Ql (U) Negative Negative [facility] Automated urine color determ inationOrdered By: Declan Marina on 02-20-2022 Color (U) Yellow Normal Yellow [facility] Comment on above: Order Comment: Name Collection Type:: Clean-Voided Midstream Performed By: #### E ODALIS, CMP, CBC #### [address] Barbiturates [Presence] in U rineOrdered By: Declan Marina on 02-20-2022 Barbiturates Ql (U) Negative Negative [facility] Basophils Auto (Bld) [#/Vol] Ordered By: Declan Marina on 02-20-2022 Basophils (Bld) [#/Vol] 0.1 10*3/uL 0.0-0.2 [facility] Basophils/100 WBC Auto (Bld) Ordered By: Declan Marina on 02-20-2022 Basophils/100 WBC (Bld) 1.4 % . [facility] Benzodiazepines [Presence] i n UrineOrdered By: Declan Marina on 02-20-2022 Benzodiazepines Ql (U) Negative Negative [facility] Bilirubin Test strip Ql (U)O rdered By: Declan Marina on 02-20-2022 Bilirubin Ql (U) Negative Negative [facility] Body fluid albumin measureme nt (mass/volume)Ordered By: Declan Marina on 02-20-2022 Albumin (Body fld) [Mass/Vol] 3.8 g/dL 3.2-5.5 [facility] Cannabinoids [Presence] in U rine by Screen methodOrdered By: Declan Marina on 02-20-2022 Cannabinoids Screen Ql (U) Negative Negative [facility] Comment on above: These are unconfirme d results and should not be used for legal purposes. Drug Cut-Off Concentration: AMPH 1000 ng/mL JANELL 200 ng/mL JAMES 200 ng/mL COCM 300 ng/mL OP 300 ng/mL PCP 25 ng/mL THC 20 ng/mL Complete Blood Count Auto Di ffon 02-20-2022 Basophils (Bld) [#/Vol] 0.1 10*3/uL Normal 0.0-0.2 [facility] Comment on above: Result Comment: PERF ORMED BY: [address] [place] [address] PATHOLOGIST FOOD AND BEVERAGE COORDINATOR LEE CARDOSO M.D. Performed By: #### E ODALIS, CMP, CBC #### [facility] [address] [place] [address] [place] Basophils/100 WBC (Bld) 1.4 % Normal . [facility] Comment on above: Performed By: #### E ODALIS, CMP, CBC #### [facility] [address] [place] [address] [place] Eosinophils (Bld) [#/Vol] 0.1 10*3/uL Normal 0.0-0.45 [facility] Comment on above: Performed By: #### E ODALIS, CMP, CBC #### [facility] [address] [place] [address] [place] Eosinophils/100 WBC (Bld) 0.5 % Normal . [facility] Comment on above: Performed By: #### E TRIPP JACOBO, CBC #### [address] Erythrocyte distribution width (RBC) [Ratio] 12.8 % Normal 11.9-15.3 [facility] Comment on above: Performed By: #### E TRIPP JACOBO, CBC #### [address] Hematocrit (Bld) [Volume fraction] 44.9 % Normal 34.0-46.4 [facility] Comment on above: Performed By: #### E TRIPP JACOBO, CBC #### [address] Hemoglobin (Bld) [Mass/Vol] 15.2 g/dL Normal 11.8-15.4 [facility] Comment on above: Performed By: #### E TRIPP JACOBO, CBC #### [address] Lymphocytes (Bld) [#/Vol] 3.0 10*3/uL Normal 1.00-4.8 [facility] Comment on above: Performed By: #### E TRIPP JACOBO, CBC #### [address] Lymphocytes/100 WBC (Bld) 30.9 % Normal . [facility] Comment on above: Performed By: #### E TRIPP JACOBO, CBC #### [address] MCH (RBC) [Entitic mass] 31.6 pg Normal 24.7-34.3 [facility] Comment on above: Performed By: #### E TRIPP JACOBO, CBC #### [address] MCV (RBC) [Entitic vol] 93.1 fL Normal 80-100 [facility] Comment on above: Performed By: #### E TRIPP JACOBO, CBC #### [address] Mean Corpuscular HGB Conc 33.9 g/dL Normal 32.0-35.0 [facility] Comment on above: Performed By: #### E TRIPP JACOBO, CBC #### [facility] [address] [place] [address] [place] Monocytes (Bld) [#/Vol] 0.4 10*3/uL Normal 0.0-0.8 [facility] Comment on above: Performed By: #### E TRIPP JACOBO, CBC #### [facility] [address] [place] [address] [place] Monocytes/100 WBC (Bld) 15.19 % Normal 0.00-20.00 [facility] Comment on above: Performed By: #### E TRIPP JACOBO, CBC #### [address] Monocytes/100 WBC (Bld) 3.7 % Normal . [facility] Comment on above: Performed By: #### E TRIPP JACOBO, CBC #### [address] Neutrophils (Bld) [#/Vol] 6.2 10*3/uL Normal 1.8-7.7 [facility] Comment on above: Performed By: #### E TRIPP JACOBO, CBC #### [place] [address] [place] Neutrophils/100 WBC (Bld) 63.5 % Normal . [facility] Comment on above: Performed By: #### E TRIPP JACOBO, CBC #### [facility] [address] [place] [address] [place] NRBC% 0.2 /100{WBC} Normal 0-0.5 [facility] Comment on above: Performed By: #### E TRIPP JACOBO, CBC #### [facility] [address] [place] [address] [place] Platelet mean volume (Bld) [Entitic vol] 7.8 fL Normal 6.3-10.7 [facility] Comment on above: Performed By: #### E TRIPP JACOBO, CBC #### [address] [place] [address] [place] Platelets (Bld) [#/Vol] 219 10*3/uL Normal 150-450 [facility] Comment on above: Performed By: #### E ODALIS, CMP, CBC #### [address] RBC (Bld) [#/Vol] 4.82 10*6/uL Normal 3.60-5.00 [facility] Comment on above: Performed By: #### E ODALIS, CMP, CBC #### [address] WBC (Bld) [#/Vol] 9.8 10*3/uL Normal 3.8-11.6 [facility] Comment on above: Performed By: #### E ODALIS, CMP, CBC #### [address] Comprehensive Metabolic Pane mary beth 02-20-2022 Albumin [Mass/Vol] 3.8 g/dL Normal 3.2-5.5 [facility] Comment on above: Performed By: #### H S TROP, CBC, DDIMER, PP, MG, BMP #### [address] Albumin/Globulin [Mass ratio] 1.2 {ratio} Normal [facility] Comment on above: Performed By: #### H S TROP, CBC, DDIMER, PP, MG, BMP #### [address] ALP [Catalytic activity/Vol] 84 U/L Normal 32-92 [facility] Comment on above: Performed By: #### H S TROP, CBC, DDIMER, PP, MG, BMP #### [address] ALT [Catalytic activity/Vol] 141 U/L High 10-60 [facility] Comment on above: Performed By: #### H S TROP, CBC, DDIMER, PP, MG, BMP #### [address] Anion gap [Moles/Vol] 16.0 mmol/L High 6.0-15.0 [facility] Comment on above: Performed By: #### H S TROP, CBC, DDIMER, PP, MG, BMP #### [facility] [address] AST [Catalytic activity/Vol] 169 U/L High 10-42 [facility] Comment on above: Performed By: #### H S TROP, CBC, DDIMER, PP, MG, BMP #### [facility] [address] Bilirubin [Mass/Vol] 0.5 mg/dL Normal 0.3-1.2 [facility] Comment on above: Performed By: #### H S TROP, CBC, DDIMER, PP, MG, BMP #### [facility] [address] [place] [address] Calcium [Mass/Vol] 8.5 mg/dL Normal 8.2-10.2 [facility] Comment on above: Performed By: #### H S TROP, CBC, DDIMER, PP, MG, BMP #### [facility] [address] Chloride [Moles/Vol] 103 mmol/L Normal 95-114 [facility] Comment on above: Performed By: #### H S TROP, CBC, DDIMER, PP, MG, BMP #### [facility] [address] [place] [address] CO2 [Moles/Vol] 24.6 mmol/L Normal 22.0-30.0 [facility] Comment on above: Performed By: #### H S TROP, CBC, DDIMER, PP, MG, BMP #### [facility] [address] Creatinine [Mass/Vol] 0.57 mg/dL Normal 0.44-1.03 [facility] Comment on above: Performed By: #### H S TROP, CBC, DDIMER, PP, MG, BMP #### [facility] [address] [place] [address] [place] Creatinine Clr Calc Pharmacy 140.39 [facility] Comment on above: Result Comment: PERF ORMED BY: [place] [address] PATHOLOGIST FOOD AND BEVERAGE COORDINATOR LEE CARDOSO M.D. Performed By: #### H S TROP, CBC, DDIMER, PP, MG, BMP #### [address] Estimated GFR ( Faye > 60 [facility] Comment on above: Result Comment: GFR estimated reference range: According to KDOQI guidelines, <60 ml/min/1.73m2 is sufficient to diagnose a patient with chronic kidney disease. Performed By: #### H S TROP, CBC, DDIMER, PP, MG, BMP #### [address] Estimated GFR (Non- Am > 60 [facility] Comment on above: Performed By: #### H S TROP, CBC, DDIMER, PP, MG, BMP #### [address] Globulin (S) [Mass/Vol] 3.3 g/dL [facility] Comment on above: Performed By: #### H S TROP, CBC, DDIMER, PP, MG, BMP #### [address] Glucose [Mass/Vol] 76 mg/dL Normal 70-100 [facility] Comment on above: Result Comment: [place] Glucose Reference Range is dependent on time and content of last meal. Glucose of more than 200 mg/dL in a nonstressed, ambulatory subject supports the diagnosis of Diabetes Mellitus. ADA recommended reference range Performed By: #### H S TROP, CBC, DDIMER, PP, MG, BMP #### [address] Potassium [Moles/Vol] 3.6 mmol/L Normal 3.5-5.1 [facility] Comment on above: Performed By: #### H S TROP, CBC, DDIMER, PP, MG, BMP #### [address] [place] [address] [place] Protein [Mass/Vol] 7.1 g/dL Normal 6.1-7.9 [facility] Comment on above: Performed By: #### H S TROP, CBC, DDIMER, PP, MG, BMP #### [facility] [address] Sodium [Moles/Vol] 140 mmol/L Normal 136-146 [facility] Comment on above: Performed By: #### H S TROP, CBC, DDIMER, PP, MG, BMP #### [facility] [address] Urea nitrogen [Mass/Vol] 2 mg/dL Low - [facility] Comment on above: Performed By: #### H S TROP, CBC, DDIMER, PP, MG, BMP #### [address] Creatinine and Glomerular fi ltration rate.predicted panel (S/P/Bld)Ordered By: Declan Marina on 02-20-2022 Creatinine [Mass/Vol] 0.57 mg/dL 0.44-1.03 [facility] Drug Screen,Urineon 02-20-19 Amphetamine Screen,Urine Negative Normal Negative [facility] Comment on above: Performed By: #### E TRIPP JACOBO, CBC #### [address] Barbiturate Screen,Urine Negative Normal Negative [facility] Comment on above: Performed By: #### E ODALIS CMP, CBC #### [place] [address] [place] Benzodiazepines Screen,Urine Negative Normal Negative [facility] Comment on above: Performed By: #### E ODALIS CMP, CBC #### [address] Cannabinoid Screen,Urine Negative Normal Negative [facility] Comment on above: Result Comment: Thes e are unconfirmed results and should not be used for legal purposes. Drug Cut-Off Concentration: AMPH 1000 ng/mL JANELL 200 ng/mL JAMES 200 ng/mL COCM 300 ng/mL OP 300 ng/mL PCP 25 ng/mL THC 20 ng/mL PERFORMED BY: [place] [address] PATHOLOGIST FOOD AND BEVERAGE COORDINATOR LEE CARDOSO M.D. Performed By: #### E ODALISTRIPP Rodriguez, CBC #### [facility] [address] Cocaine Screen,Urine Negative Normal Negative [facility] Comment on above: Performed By: #### E ODALIS CMP, CBC #### [facility] [address] Opiate Screen,Urine Negative Normal Negative [facility] Comment on above: Performed By: #### E TRIPP JACOBO, CBC #### [facility] [address] Phencyclidine Screen,Urine Negative Normal Negative [facility] Comment on above: Performed By: #### E TRIPP JACOBO, CBC #### [facility] [address] ECG 12 lead ECGon 02-20-2022 ECG 12 lead ECG [facility] [address] [place] [address] [place] [address] Electrocardiograph Report Signed Patient: Lyle Flynn MR#: [id number] : 1990 Acct:[id number] Age/Sex: 32 / F ADM Date: 02/20/22 Loc: ER Room: Type: [facility] ER Attending Dr: Ordering Provider: Declan Marina MD Date of Service: 02/20/2212/03/1908 ECG/ECG 12 lead ECG: Overdose Copies to: Test Reason : Blood Pressure : 151/090 mmHG Vent. Rate : 085 BPM Atrial Rate : 085 BPM P-R Int : 144 ms QRS Dur : 084 ms QT Int : 382 ms P-R-T Axes : 095 093 092 degrees QTc Int : 454 ms Suspect arm lead reversal, interpretation assumes no reversal Normal sinus rhythm Possible Left atrial enlargement Rightward axis Borderline ECG When compared with ECG of 25-JUN-2021 17:02, Nonspecific T wave abnormality now evident in Lateral leads Confirmed by DECLAN MARINA MD ([id number]) on 02/21/2022 1:31:06 AM Referred By: Electronically Signed By:DECLAN MARINA MD Transcribed By: MUS Signed By Declan Marina MD 02/11 03/05 0131 Normal [facility] EMS Documentationon 02-20-19 EMS Documentation Normal [facility] Eosinophils Auto (Bld) [#/Vo l]Ordered By: Declan Marina on 02-20-2022 Eosinophils (Bld) [#/Vol] 0.1 10*3/uL 0.0-0.45 [facility] Eosinophils/100 WBC Auto (Bl d)Ordered By: Declan Marina on 02-20-2022 Eosinophils/100 WBC (Bld) 0.5 % . [facility] Erythrocyte distribution wid th Auto (RBC) [Ratio]Ordered By: Declan Marina on 02-20-2022 Erythrocyte distribution width (RBC) [Ratio] 12.8 % 11.9-15.3 [facility] Estimated glomerular filtrat ion rate (GFR) non- AmericanOrdered By: Declan Marina on 02-20-2022 GFR/1.73 sq M.predicted among non-blacks MDRD (S/P/Bld) [Vol rate/Area] > 60 mL/Min [facility] Ethyl Alcohol Profileon 02-11 Ethanol [Mass/Vol] 347 mg/dL Normal [facility] Comment on above: Performed By: #### H S TROP, CBC, DDIMER, PP, MG, BMP #### [facility] [address] [place] [address] Percent Ethanol 0.347 % Normal [facility] Comment on above: Result Comment: PERF ORMED BY: [place] [address] PATHOLOGIST FOOD AND BEVERAGE COORDINATOR LEE CARDOSO M.D. Performed By: #### H S TROP, CBC, DDIMER, PP, MG, BMP #### [facility] [address] [place] [address] [place] Globulin Calc (S) [Mass/Vol] Ordered By: Declan Marina on 02-20-2022 Globulin (S) [Mass/Vol] 3.3 g/dL [facility] HCG ( test) [place].rapi d Ql (U)Ordered By: Declan Marina on 02-20-2022 HCG ( test) Ql (U) Negative [facility] HCG,Urineon 02-20-2022 Beta HCG ( test) Ql (U) Negative Normal [facility] Comment on above: Order Comment: Name Collection Type:: Clean-Voided Midstream Result Comment: PERF ORMED BY: [facility] [address] [place] [address] PATHOLOGIST FOOD AND BEVERAGE COORDINATOR LEE CARDOSO M.D. Performed By: #### E ODALIS, CMP, CBC #### [facility] [address] Hematocrit Auto (Bld) [Volum e fraction]Ordered By: Declan Marina on 02-20-2022 Hematocrit (Bld) [Volume fraction] 44.9 % 34.0-46.4 [facility] Hemoglobin [Mass/volume] in BloodOrdered By: Declan Marina on 02-20-2022 Hemoglobin (Bld) [Mass/Vol] 15.2 g/dL 11.8-15.4 [facility] Ketones Auto test strip (U) [Mass/Vol]Ordered By: Declan Marina on 02-20-2022 Ketones (U) [Mass/Vol] Negative Negative [facility] Laboratory - Drug toxicology Ordered By: Declan Marina on 02-20-2022 Opiates Ql (U) Negative Negative [facility] Leukocytes [#/volume] correc jose for nucleated erythrocytes in Blood by Automated counOrdered By: Declan Marina on 02-20-2022 WBC corrected for nucl RBC Auto (Bld) [#/Vol] 9.8 10*3/uL 3.8-11.6 [facility] Lymphocytes Auto (Bld) [#/Vo l]Ordered By: Declan Marina on 02-20-2022 Lymphocytes (Bld) [#/Vol] 3.0 10*3/uL 1.00-4.8 [facility] Lymphocytes/100 WBC Auto (Bl d)Ordered By: Declan Marina on 02-20-2022 Lymphocytes/100 WBC (Bld) 30.9 % . [facility] MCH Auto (RBC) [Entitic mass ]Ordered By: Declan Marina on 02-20-2022 MCH (RBC) [Entitic mass] 31.6 pg 24.7-34.3 [facility] MCHC Auto (RBC) [Mass/Vol]Or dered By: Declan Marina on 02-20-2022 MCHC (RBC) [Mass/Vol] 33.9 g/dL 32.0-35.0 [facility] MCV Auto (RBC) [Entitic vol] Ordered By: Declan Marina on 02-20-2022 MCV (RBC) [Entitic vol] 93.1 fL 80-100 [facility] Monocyte distribution width [Entitic volume] in Blood by AutomatedOrdered By: Declan Marina on 02-20-2022 Monocyte distribution width Auto (Bld) [Entitic vol] 15.19 % 0.00-20.00 [facility] Monocytes Auto (Bld) [#/Vol] Ordered By: Declan Marina on 02-20-2022 Monocytes (Bld) [#/Vol] 0.4 10*3/uL 0.0-0.8 [facility] Monocytes/100 WBC Auto (Bld) Ordered By: Declan Marina on 02-20-2022 Monocytes/100 WBC (Bld) 3.7 % . [facility] Neutrophils Auto (Bld) [#/Vo l]Ordered By: Declan Marina on 02-20-2022 Neutrophils (Bld) [#/Vol] 6.2 10*3/uL 1.8-7.7 [facility] Neutrophils/100 WBC Auto (Bl d)Ordered By: Declan Marina on 02-20-2022 Neutrophils/100 WBC (Bld) 63.5 % . [facility] Nitrite Test strip Ql (U)Ord ered By: Declan Marina on 02-20-2022 Nitrite Ql (U) Negative Negative [facility] No Panel InformationOrdered By: Declan Marina on 02-20-2022 Estimated GFR () > 60 mL/Min [facility] Comment on above: GFR estimated refere nce range: According to KDOQI guidelines, <60 ml/min/1.73m2 is sufficient to diagnose a patient with chronic kidney disease. Pharmacy Creatinine Clearance (Chem 140.39 [facility] Nucleated erythrocytes [Pres ence] in Blood by Automated countOrdered By: Declan Marina on 02-20-2022 Nucleated RBC Auto Ql (Bld) 0.2 /100{WBC} 0-0.5 [facility] Phencyclidine Screen Ql (U)O rdered By: Declan Marina on 02-20-2022 Phencyclidine Ql (U) Negative Negative [facility] Platelet mean volume Auto (B ld) [Entitic vol]Ordered By: Declan Marina on 02-20-2022 Platelet mean volume (Bld) [Entitic vol] 7.8 fL 6.3-10.7 [facility] Platelets Auto (Bld) [#/Vol] Ordered By: Declan Marina on 02-20-2022 Platelets (Bld) [#/Vol] 219 10*3/uL 150-450 [facility] Protein Auto test strip (U) [Mass/Vol]Ordered By: Declan Marina on 02-20-2022 Protein (U) [Mass/Vol] Negative Negative [facility] Protein [Mass/volume] in Ser um or PlasmaOrdered By: Declan Marina on 02-20-2022 Protein [Mass/Vol] 7.1 g/dL 6.1-7.9 [facility] RBC Auto (Bld) [#/Vol]Ordere d By: Declan Marina on 02-20-2022 RBC (Bld) [#/Vol] 4.82 10*6/uL 3.60-5.00 [facility] Serum or plasma alanine urbina otransferase measurement without P-5'-P (enzymatic activiOrdered By: Declan Marina on 02-20-2022 ALT No additional P-5'-P [Catalytic activity/Vol] 141 U/L 10-60 [facility] Serum or plasma albumin/glob ulin mass ratioOrdered By: Declan Marina on 02-20-2022 Albumin/Globulin [Mass ratio] 1.2 {ratio} [facility] Serum or plasma alkaline maya sphatase measurement (enzymatic activity/volume)Ordered By: Declan Marina on 02-20-2022 ALP [Catalytic activity/Vol] 84 U/L 32-92 [facility] Serum or plasma anion gap de terminationOrdered By: Declan Marina on 02-20-2022 Anion gap [Moles/Vol] 16.0 mmol/L 6.0-15.0 [facility] Serum or plasma aspartate am inotransferase measurement (enzymatic activity/volume)Ordered By: Declan Marina on 02-20-2022 AST [Catalytic activity/Vol] 169 U/L 10-42 [facility] Serum or plasma calcium judi urement (mass/volume)Ordered By: Declan Marina on 02-20-2022 Calcium [Mass/Vol] 8.5 mg/dL 8.2-10.2 [facility] Serum or plasma chloride nataliia surement (moles/volume)Ordered By: Declan Marina on 02-20-2022 Chloride [Moles/Vol] 103 mmol/L 95-114 [facility] Serum or plasma ethanol judi urement (mass/volume)Ordered By: Declan Marina on 02-20-2022 Ethanol [Mass/Vol] 347 mg/dL [facility] Ethanol [Mass/Vol] 0.347 % [facility] Serum or plasma glucose judi urement (mass/volume)Ordered By: Declan Marina on 02-20-2022 Glucose [Mass/Vol] 76 mg/dL 70-100 [facility] Comment on above: ADA recommended refe rence rangeRandom Glucose Reference Range is dependent on time and content of last meal. Glucose of more than 200 mg/dL in a nonstressed, ambulatory subject supports the diagnosis of Diabetes Mellitus. Serum or plasma potassium me asurement (moles/volume)Ordered By: Declan Marina on 02-20-2022 Potassium [Moles/Vol] 3.6 mmol/L 3.5-5.1 [facility] Serum or plasma sodium measu rement (moles/volume)Ordered By: Declan Marina on 02-20-2022 Sodium [Moles/Vol] 140 mmol/L 136-146 [facility] Serum or plasma total biliru bin measurement (mass/volume)Ordered By: Declan Marina on 02-20-2022 Bilirubin [Mass/Vol] 0.5 mg/dL 0.3-1.2 [facility] Serum or plasma total carbon dioxide measurement (moles/volume)Ordered By: Declan Marina on 02-20-2022 CO2 [Moles/Vol] 24.6 mmol/L 22.0-30.0 [facility] Serum or plasma urea nitroge n measurement (mass/volume)Ordered By: Declan Marina on 02-20-2022 Urea nitrogen [Mass/Vol] 2 mg/dL 11-03 [facility] Specific gravity Auto test s trip (U) [Rel density]Ordered By: Declan Marina on 02-20-2022 Specific gravity (U) [Rel density] 1.007 1.001-1.030 [facility] Urinalysison 02-20-2022 Appearance (U) Clear Normal Clear [facility] Comment on above: Order Comment: Name Collection Type:: Clean-Voided Midstream Performed By: #### E ODALIS, CMP, CBC #### [facility] [address] Bilirubin,Urine Negative Normal Negative [facility] Comment on above: Order Comment: Name Collection Type:: Clean-Voided Midstream Performed By: #### E ODALIS, CMP, CBC #### [facility] [address] [place] [address] [place] Glucose Ql (U) Normal Normal Normal [facility] Comment on above: Order Comment: Name Collection Type:: Clean-Voided Midstream Performed By: #### E ODALIS, CMP, CBC #### [facility] [address] Ketones Ql (U) Negative Normal Negative [facility] Comment on above: Order Comment: Name Collection Type:: Clean-Voided Midstream Performed By: #### E ODALIS, CMP, CBC #### [facility] [address] [place] [address] [place] Leukocyte esterase Test strip Ql (U) Negative Normal Negative [facility] Comment on above: Order Comment: Name Collection Type:: Clean-Voided Midstream Performed By: #### E ODALIS, CMP, CBC #### [facility] [address] [place] [address] [place] Nitrite,Urine Negative Normal Negative [facility] Comment on above: Order Comment: Name Collection Type:: Clean-Voided Midstream Performed By: #### E ODALIS, CMP, CBC #### [facility] [address] [place] [address] [place] Occult Blood,Urine Negative Normal Negative [facility] Comment on above: Order Comment: Name Collection Type:: Clean-Voided Midstream Performed By: #### E ODALIS, CMP, CBC #### [facility] [address] [place] [address] [place] Protein,Urine Negative Normal Negative [facility] Comment on above: Order Comment: Name Collection Type:: Clean-Voided Midstream Performed By: #### E ODALIS, CMP, CBC #### [facility] [address] Specificy [place],Urine 1.007 Normal 1.001-1.030 [facility] Comment on above: Order Comment: Name Collection Type:: Clean-Voided Midstream Performed By: #### E ODALIS, CMP, CBC #### [facility] [address] Urobilinogen,Urine Normal Normal Normal [facility] Comment on above: Order Comment: Name Collection Type:: Clean-Voided Midstream Performed By: #### E ODALIS, CMP, CBC #### [facility] [address] Urine clarity by refractomet ry automatedOrdered By: Declan Marina on 02-20-2022 Clarity Refractometry automated (U) Clear Clear [facility] Urine cocaine detectionOrder ed By: Declan Marina on 02-20-2022 Cocaine Ql (U) Negative Negative [facility] Urine glucose measurement by automated test strip (mass/volume)Ordered By: Declan Marina on 02-20-2022 Glucose Auto test strip (U) [Mass/Vol] Normal mg/dL Normal [facility] Urine hemoglobin detection b y automated test stripOrdered By: Declan Marina on 02-20-2022 Hemoglobin Auto test strip Ql (U) Negative Negative [facility] Urine leukocyte esterase det ection by automated test stripOrdered By: Declan Marina on 02-20-2022 Leukocyte esterase Auto test strip Ql (U) Negative Negative [facility] Urine pH measurement by auto mated test stripOrdered By: Declan Marina on 02-20-2022 pH (U) 6.0 [pH] Normal 5.0-9.0 [facility] Comment on above: Order Comment: Name Collection Type:: Clean-Voided Midstream Performed By: #### E ODALIS, CMP, CBC #### [facility] [address] [place] [address] [facility] Urobilinogen Auto test strip (U) [Mass/Vol]Ordered By: Declan Marina on 02-20-2022 Urobilinogen (U) [Mass/Vol] Normal mg/dL Normal [facility] WBC Auto (Bld) [#/Vol]Ordere d By: Declan Marina on 02-20-2022 WBC (Bld) [#/Vol] 9.8 10*3/uL 3.8-11.6 [facility] ED Note-Physicianon 02-19-19 ED Note-Physician Normal [facility] Comment on above: Result Comment: Elec tronically Signed By: Rafael AGUILAR, Isai Church.br\Date and Time Signed: 02/18/22 22:39 EST Auto Diffon 02-18-2022 Basophils/100 WBC (Bld) 0.4 % Normal 0.0-2.0 [facility] Comment on above: Order Comment: Order Added by Discern Expert. Performed By: #### 2 005755, [id number], 24006556, 7304497 ####[facility] [address] [place] [address] Basophils/Leukocytes Auto (Bld) [Pure # fraction] 0.0 E9/L Normal 0.0-0.2 [facility] Comment on above: Order Comment: Order Added by Discern Expert. Performed By: #### 2 244645, 5864091, 98834400, 6430262 ####[facility] [address] [place] [address] Eosinophils/100 WBC (Bld) 0.9 % Normal 0.0-8.0 [facility] Comment on above: Order Comment: Order Added by Discern Expert. Performed By: #### 2 287829, 5386220, 18642529, 2737705 ####[facility] [address] [place] [address] Eosinophils/Leukocyte s Auto (Bld) [Pure # fraction] 0.1 E9/L Normal 0.0-0.5 [facility] Comment on above: Order Comment: Order Added by Discern Expert. Performed By: #### 2 816271, 4395489, 01311104, 1151127 ####[address] [place] [address] Lymphocytes/100 WBC (Bld) 45.3 % Normal 14.0-50.0 [facility] Comment on above: Order Comment: Order Added by Discern Expert. Performed By: #### 2 713969, 4921442, 75459603, 7049220 ####[address] [address] Lymphocytes/Leukocyte s Auto (Bld) [Pure # fraction] 4.8 E9/L High 1.0-4.0 [facility] Comment on above: Order Comment: Order Added by Discern Expert. Performed By: #### 2 453047, 8922412, 79372121, 1822638 ####[address] [address] Monocytes/100 WBC (Bld) 4.7 % Normal 4.0-14.0 [facility] Comment on above: Order Comment: Order Added by Discern Expert. Performed By: #### 2 488194, 2253735, 15018819, 7506008 ####[address] [address] Monocytes/Leukocytes Auto (Bld) [Pure # fraction] 0.5 E9/L Normal 0.2-1.0 [facility] Comment on above: Order Comment: Order Added by Discern Expert. Performed By: #### 2 882859, 2450451, 42996260, 6866873 ####[address] [place] [address] Neutrophils/100 WBC (Bld) 48.7 % Normal 36.0-75.0 [facility] Comment on above: Order Comment: Order Added by Discern Expert. Performed By: #### 2 032986, 7373110, 92651206, 7371595 ####[facility] [address] [place] [address] Neutrophils/Leukocyte s Auto (Bld) [Pure # fraction] 5.2 E9/L Normal 2.0-7.5 [facility] Comment on above: Order Comment: Order Added by Discern Expert. Performed By: #### 2 168521, 9753096, 83583314, 7867146 ####[facility] [address] [place] [address] BMPon 02-18-2022 Creatinine [Mass/Vol] 0.7 mg/dL Normal 0.5-1.3 [facility] Comment on above: Performed By: #### 2 051322, 5068363, 80978567, 0072595 ####[facility] [address] [place] [address] Urea nitrogen [Mass/Vol] 5 mg/dL Normal 5-21 [facility] Comment on above: Performed By: #### 2 763211, 6315791, 72437352, 6279881 ####[facility] [address] [place] [address] Urea nitrogen/Creatinine [Mass ratio] 7 No Units Low 10-20 [facility] Comment on above: Performed By: #### 2 656820, 0415020, 38535129, 9638813 ####[facility] [address] [place] [address] Anion gap [Moles/Vol] 12 mmol/L Normal 6-16 [facility] Comment on above: Performed By: #### 2 532426, 6850407, 48522034, 6425414 ####[facility] [address] [place] [address] Calcium [Mass/Vol] 8.3 mg/dL Low 8.9-11.1 [facility] Comment on above: Performed By: #### 2 635085, 6863509, 40013922, 6024879 ####[facility] [address] [place] [address] Chloride [Moles/Vol] 111 mmol/L Normal 101-111 [facility] Comment on above: Performed By: #### 2 538850, 8972226, 99059977, 9888178 ####[facility] [address] [place] [address] CO2 [Moles/Vol] 22 mmol/L Normal 21-31 [facility] Comment on above: Performed By: #### 2 316131, 7875858, 61351368, 4559803 ####[facility] [address] [place] [address] Glucose [Mass/Vol] 84 mg/dL Normal 55-199 [facility] Comment on above: Result Comment: If t his glucose result represents a fasting glucose, interpretation should refer to the following reference range: 55-99 mg/dL Performed By: #### 2 884138, 3498414, 26330869, 2190009 ####[facility] [address] [place] [address] Potassium [Moles/Vol] 4.2 mmol/L Normal 3.5-5.3 [facility] Comment on above: Performed By: #### 2 319973, 9927538, 48908004, 9890086 ####[facility] [address] [place] [address] Sodium [Moles/Vol] 141 mmol/L Normal 135-145 [facility] Comment on above: Performed By: #### 2 447376, 2379096, 82389640, 1163225 ####[facility] [address] [place] [address] CBC w/ Auto Diffon 3 Erythrocyte distribution width (RBC) [Ratio] 13.7 % Normal 10.9-14.2 [facility] Comment on above: Performed By: #### 2 709825, 9304695, 50988909, 0507172 ####[facility] [address] [place] [address] Hematocrit (Bld) [Volume fraction] 47.4 % High 34.0-46.0 [facility] Comment on above: Performed By: #### 2 002310, 0208004, 82764459, 7545582 ####[address] [address] Hemoglobin (Bld) [Mass/Vol] 16.0 g/dL Normal 12.0-16.0 [facility] Comment on above: Performed By: #### 2 948883, 5464989, 46164342, 6958500 ####[address] [address] MCH (RBC) [Entitic mass] 32.0 pg Normal 27.0-34.0 [facility] Comment on above: Performed By: #### 2 144191, 9821935, 21100713, 2502710 ####[address] [address] MCHC (RBC) [Mass/Vol] 33.9 g/dL Normal 31.4-36.0 [facility] Comment on above: Performed By: #### 2 524196, 9478132, 53607660, 2454712 ####[address] [address] MCV (RBC) [Entitic vol] 94.5 fL Normal 80.0-100.0 [facility] Comment on above: Performed By: #### 2 155469, 0214905, 06701465, 6237003 ####[address] [address] Platelet mean volume (Bld) [Entitic vol] 8.2 fL Normal 6.4-10.8 [facility] Comment on above: Performed By: #### 2 845591, 9779627, 48234566, 4015433 ####[address] [address] Platelets (Bld) [#/Vol] 212.0 E9/L Normal 150.0-500.0 [facility] Comment on above: Performed By: #### 2 282846, 8750499, 00430696, 2489903 ####[facility] [address] [place] [address] RBC (Bld) [#/Vol] 5.0 E12/L Normal 4.3-5.9 [facility] Comment on above: Performed By: #### 2 006482, 2833360, 57718319, 4671196 ####[facility] [address] [place] [address] WBC corrected for nucl RBC Auto (Bld) [#/Vol] 10.6 E9/L Normal 4.0-11.0 [facility] Comment on above: Performed By: #### 2 247801, 1718217, 99299731, 3445703 ####[facility] [address] [place] [address] Consent for Treatmenton Consent for Treatment [id number] :127 Normal [facility] ED Clinical Summaryon 2022 ED Clinical Summary Normal [facility] ED Note-Nursingon 02-18-2022 ED Note-Nursing pt ambulated out of the department with her mother prior to signing discharge papers. Normal [facility] ED Patient Education Noteon 02-18-2022 ED Patient Education Note Normal [facility] ED Patient Summaryon 023 ED Patient Summary Normal [facility] EMS Documentationon 02-18-19 23 EMS Documentation Normal [facility] Ethanolon 02-18-2022 Ethanol [Mass/Vol] 370 mg/dL Abnormal <=7 [facility] Comment on above: Result Comment: Crit ical Result verified by repeat analysis\Critical Result S_ETOH:370.0 Called to BALDO CHENG AT ER by MANUEL CONTRERAS And Read Back For Confirmation at: 02/18/2022 00:57:38 Performed By: #### 2 [id number] ####[facility] [address] [place] [address] Pre-Arrival Noteon 3 Pre-Arrival Note Normal [facility] eGFRon 02-18-2022 GFR/1.73 sq M.predicted among blacks MDRD (S/P/Bld) [Vol rate/Area] mL/min/{1.73_m2} Normal >=59 [facility] Comment on above: Order Comment: Order added by Discern Expert. Result Comment: eGFR is race adjusted. AA=. Performed By: #### 2 516640, 3048449, 09520775, 1659651 ####[facility] [address] [place] [address] GFR/1.73 sq M.predicted among non-blacks MDRD (S/P/Bld) [Vol rate/Area] mL/min/{1.73_m2} Normal >=59 [facility] Comment on above: Order Comment: Order added by Discern Expert. Result Comment: Surveillance Sensor Officer justin kidney disease could be indicated at eGFR's of less than 60 mL/min/1.73m2. Kidney failure is indicated at less than 15 mL/min/1.73m2. Performed By: #### 2 400949, 8734192, 35959738, 5061294 ####[facility] [address] [place] [address] CHEMISTRYOrdered By: SYSTEM SYSTEM on 07-26-2021 Albumin [Mass/Vol] 3.8 g/dL Normal 3.3 - 5.0 gm/dL [facility] Albumin/Globulin [Mass ratio] 1.1 {ratio} Normal 1.1 - 2.2 [facility] ALP [Catalytic activity/Vol] 60 [iU]/d Normal 21 - 98 Int._Unit/L [facility] ALT No additional P-5'-P [Catalytic activity/Vol] 224 [iU]/d High 6 - 46 Int._Unit/L [facility] Anion gap [Moles/Vol] 14 mmol/L Normal 6 - 16 mEq/L [facility] AST [Catalytic activity/Vol] 291 [iU]/d High 5 - 43 Int._Unit/L [facility] Bilirubin [Mass/Vol] 0.4 mg/dL Normal 0.0 - 1 .1 mg/dL [facility] Bilirubin.direct [Mass/Vol] 0.1 mg/dL Normal 0.1 - 0.4 mg/dL [facility] Bilirubin.indirect [Mass or moles/Vol] 0.3 mg/dL Normal 0.1 - 0.9 mg/dL [facility] Calcium [Mass/Vol] 9.2 mg/dL Normal 8.9 - 11. 1 mg/dL [facility] Chloride [Moles/Vol] 105 mmol/L Normal 101 - 1 11 mmol/L [facility] CO2 [Moles/Vol] 21 mmol/L Normal 21 - 31 mmol/L [facility] Creatinine [Mass/Vol] 0.6 mg/dL Normal 0.5 - 1.3 mg/dL [facility] GFR/1.73 sq M.predicted among blacks MDRD (S/P/Bld) [Vol rate/Area] mL/min/1.73 m2 Normal >=59mL/min/1 .73 m2 [facility] [place] GFR/1.73 sq M.predicted among non-blacks MDRD (S/P/Bld) [Vol rate/Area] mL/min/1.73 m2 Normal >=59mL/min/1 .73 m2 [facility] [facility] Globulin (S) [Mass/Vol] 3.5 g/dL Normal 1.4 - 4.0 gm/dL [facility] Glucose [Mass/Vol] 103 mg/dL Normal 55 - 199 mg/dL [facility] Lipase [Catalytic activity/Vol] 28 U/L Normal 13 - 58 unit/L [facility] Potassium [Moles/Vol] 3.9 mmol/L Normal 3.5 - 5.3 mmol/L [facility] Protein [Mass/Vol] 7.3 g/dL Normal 6.0 - 7.8 gm/dL [facility] Sodium [Moles/Vol] 136 mmol/L Normal 135 - 145 mmol/L [facility] Urea nitrogen [Mass/Vol] 7 mg/dL Normal 5 - 21 mg/dL [facility] Urea nitrogen/Creatinine [Mass ratio] 12 mg/mg Normal 10 - 20 [facility] HEMATOLOGYOrdered By: SYSTEM SYSTEM on 07-26-2021 Basophils/100 WBC (Bld) 0.5 % Normal 0.0 - 2.0 % [facility] HemeAutoSS Basophils/Leukocytes Auto (Bld) [Pure # fraction] 0.0 E9/L Normal 0.0 - 0.2 E9/L [facility] HemeAutoSS Eosinophils/100 WBC (Bld) 1.5 % Normal 0.0 - 8.0 % [facility] HemeAutoSS Eosinophils/Leukocyte s Auto (Bld) [Pure # fraction] 0.1 E9/L Normal 0.0 - 0.5 E9/L [facility] HemeAutoSS Lymphocytes/100 WBC (Bld) 29.0 % Normal 14.0 - 50.0 % [facility] HemeAutoSS Lymphocytes/Leukocyte s Auto (Bld) [Pure # fraction] 1.8 E9/L Normal 1.0 - 4.0 E9/L [facility] HemeAutoSS Monocytes/100 WBC (Bld) 9.2 % Normal 4.0 - 14.0 % [facility] HemeAutoSS Monocytes/Leukocytes Auto (Bld) [Pure # fraction] 0.6 E9/L Normal 0.2 - 1.0 E9/L [facility] HemeAutoSS Neutrophils/100 WBC (Bld) 59.8 % Normal 36.0 - 75.0 % [facility] HemeAutoSS Neutrophils/Leukocyte s Auto (Bld) [Pure # fraction] 3.7 E9/L Normal 2.0 - 7.5 E9/L [facility] HemeAutoSS HEMATOLOGYOrdered By: Glo burciaga on 07-26-2021 Erythrocyte distribution width (RBC) [Ratio] 13.6 % Normal 10.9 - 14.2 % [facility] HemeAutoSS Hematocrit (Bld) [Volume fraction] 39.4 % Normal 34.0 - 46.0 % [facility] Hemoglobin (Bld) [Mass/Vol] 13.6 g/dL Normal 12.0 - 16.0 gm/dL [facility] MCH (RBC) [Entitic mass] 31.2 pg Normal 27.0 - 34.0 pg [facility] MCHC (RBC) [Mass/Vol] 34.4 g/dL Normal 31.4 - 36.0 gm/dL [facility] MCV (RBC) [Entitic vol] 90.7 fL Normal 80.0 - 100.0 fL [facility] Platelet mean volume (Bld) [Entitic vol] 8.5 fL Normal 6.4 - 10.8 fL [facility] Platelets (Bld) [#/Vol] 183.0 E9/L Normal 150.0 - 500.0 E9/L [facility] RBC (Bld) [#/Vol] 4.4 E12/L Normal 4.3 - 5.9 E12/L [facility] WBC corrected for nucl RBC Auto (Bld) [#/Vol] 6.3 E9/L Normal 4.0 - 11.0 E9/L [facility] SEROLOGYOrdered By: Alejandra Contreras on 07-26-2021 Beta hCG Ql Negative (07/26/21 6:47 PM) Normal [facility] URINALYSISOrdered By: Arlene Contreras on 07-26-2021 Bacteria LM Ql (Urine sed) Trace /HPF Normal Trace/HPF [facility]A Auto SS Bilirubin Ql (U) Negative (07/26/21 8:33 PM) Normal Negative [facility] SS Clarity (U) Clear (07/26/21 8:33 PM) Normal Clear [facility] Color (U) Yellow (07/26/21 8:33 PM) Normal Yellow [facility]A Auto SS Crystals LM Ql (Urine sed) Present (07/26/21 8:33 PM) Normal [facility]A Auto SS Epithelial cells.squamous LM.HPF (Urine sed) [#/Area] 0-2 /HPF Normal 0-2/HPF [facility] UA Aut o SS Glucose Test strip (U) [Mass/Vol] Negative (07/26/21 8:33 PM) Normal Negative [facility]A Auto SS Hemoglobin Ql (U) Negative (07/26/21 8:33 PM) Normal Negative [facility] SS Ketones (U) [Mass/Vol] Negative (07/26/21 8:33 PM) Normal Negative [facility]A Auto SS [place].plasma/Lithiu m.RBC (Bld) [Mass ratio] 0-3 /HPF Normal 0-3/HPF [facility] SS Nitrite Ql (U) Negative (07/26/21 8:33 PM) Normal Negative [facility] pH (U) 6.0 *NA* (07/26/21 8:33 PM) Invalid Interpretation Code 5.0 - 9.0 [facility] SS Protein (U) [Mass/Vol] Negative (07/26/21 8:33 PM) Normal Negative [facility] [facility] [place] Specific gravity (U) [Rel density] 1.020 *NA* (07/26/21 8:33 PM) Invalid Interpretation Code 1.005 - 1.030 [facility] [facility] UA Spec Desc Clean Catch (07/26/21 8:33 PM) Normal [facility] [facility] Urobilinogen Qn (U) [id number] {Surinder'U}/dL Normal 0.0 - 1.0 EU/dL [facility] [facility] WBC Auto Ql (U) Negative (07/26/21 8:33 PM) Normal Negative [facility] [facility] WBC LM.HPF (Urine sed) [#/Area] 0-5 /HPF Normal 0-5/HPF [facility] [facility] CBC With Platelet and Differ entialon 05-31-2021 Abs Imm Granulocytes 0.01 E9/L Normal [facility] Absolute Basophils 0.02 E9/L Normal 0.00-0.20 [facility] Absolute Eosinophils 0.06 E9/L Normal 0.05-0.50 [facility] Absolute Lymphocytes 2.46 E9/L Normal 1.50-4.00 [facility] Absolute Monocytes 0.52 E9/L Normal 0.10-0.95 [facility] Absolute Neutrophils 3.85 E9/L Normal 1.80-7.30 [facility] Basophils/100 WBC (Bld) 0.3 % Normal 0.0-2.0 [facility] Eosinophils/100 WBC (Bld) 0.9 % Normal 0.0-6.0 [facility] Hematocrit (Bld) [Volume fraction] 42.1 % Normal 34.0-48.0 [facility] Hemoglobin (Bld) [Mass/Vol] 14.2 g/dL Normal 11.5-15.5 [facility] Imm Granulocytes 0.1 % Normal 0.0-5.0 [facility] Lymphocytes/100 WBC (Bld) 35.5 % Normal 20.0-42.0 [facility] MCH (RBC) [Entitic mass] 31.2 pg Normal 26.0-35.0 [facility] MCHC 33.7 % Normal 32.0-34.5 [facility] MCV (RBC) [Entitic vol] 92.5 fL Normal 80.0-99.9 [facility] Monocytes/100 WBC (Bld) 7.5 % Normal 2.0-12.0 [facility] Neutrophils/100 WBC (Bld) 55.7 % Normal 43.0-80.0 [facility] Platelet Count 240 E9/L Normal 130-450 [facility] Platelet mean volume (Bld) [Entitic vol] 10.1 fL Normal 7.0-12.0 [facility] RBC 4.55 E12/L Normal 3.50-5.50 [facility] RDW 12.3 fL Normal 11.5-15.0 [facility] WBC 6.9 E9/L Normal 4.5-11.5 [facility] CBC with Auto Differentialon 05-31-2021 Basophils (Bld) [#/Vol] 0.02 10*3/uL [facility] Basophils/100 WBC (Bld) 0.3 % 0.0 - 2.0 % [facility] Eosinophils Absolute 0.06 [facility] Eosinophils/100 WBC (Bld) 0.9 % 0.0 - 6.0 % [facility] Hematocrit (Bld) [Volume fraction] 42.1 % 34.0 - 48.0 % [facility] Hemoglobin.gastrointe stinal spec 1 Ql (Stl) 14.2 g/dL 11.5 - 15.5 g/dL [facility] Immature Granulocytes # 0.01 E9/L [facility] Immature granulocytes/100 WBC (Bld) 0.1 % 0.0 - 5.0 % [facility] Lymphocytes Absolute 2.46 [facility] Lymphocytes/100 WBC (Bld) 35.5 % 20.0 - 42.0 % [facility] MCH (RBC) [Entitic mass] 31.2 pg 26.0 - 35.0 pg [facility] MCHC (RBC) [Mass/Vol] 33.7 % 32.0 - 34.5 % [facility] MCV (RBC) [Entitic vol] 92.5 fL 80.0 - 99.9 fL [facility] Monocytes Absolute 0.52 [facility] Monocytes/100 WBC (Bld) 7.5 % 2.0 - 12.0 % [facility] Neutrophils Absolute 3.85 [facility] Neutrophils/100 WBC (Bld) 55.7 % 43.0 - 80.0 % [facility] Platelet distribution width (Bld) [Ratio] 12.3 fL 11.5 - 15.0 fL [facility] Platelet mean volume (Bld) [Entitic vol] 10.1 fL 7.0 - 12.0 fL [facility] Platelets (Bld) [#/Vol] 240 10*3/uL [facility] RBC (Bld) [#/Vol] 4.55 10*6/uL [facility] WBC (Bld) [#/Vol] 6.9 10*3/uL [facility] Comprehensive Metabolic Pane mary beth 05-31-2021 Albumin [Mass/Vol] 3.9 g/dL Normal 3.5-5.2 [facility] ALP [Catalytic activity/Vol] 85 U/L Normal 35-104 [facility] ALT [Catalytic activity/Vol] 53 U/L High 0-32 [facility] Anion gap [Moles/Vol] 9 mmol/L Normal 7-16 [facility] AST [Catalytic activity/Vol] 70 U/L High 0-31 [facility] Bilirubin [Mass/Vol] 0.2 mg/dL Normal 0.0-1.2 [facility] Calcium [Mass/Vol] 9.0 mg/dL Normal 8.6-10.2 [facility] Chloride [Moles/Vol] 104 mmol/L Normal 98-107 [facility] CO2 [Moles/Vol] 23 mmol/L Normal 22-29 [facility] Creatinine [Mass/Vol] 0.5 mg/dL Normal 0.5-1.0 [facility] GFR Calculated >60 Normal >=60 [facility] Comment on above: Result Comment: Surveillance Sensor Officer justin Kidney Disease: less than 60 ml/min/1.73 sq.m. Kidney Failure: less than 15 ml/min/1.73 sq.m. Results valid for patients 18 years and older. GFR/1.73 sq M.predicted among blacks MDRD (S/P/Bld) [Vol rate/Area] mL/min/{1.73_m2} Normal [facility] Glucose [Mass/Vol] 91 mg/dL Normal 74-99 [facility] Potassium [Moles/Vol] 4.8 mmol/L Normal 3.5-5.0 [facility] Protein [Mass/Vol] 7.4 g/dL Normal 6.4-8.3 [facility] Sodium [Moles/Vol] 136 mmol/L Normal 132-146 [facility] Urea nitrogen [Mass/Vol] 6 mg/dL Normal 6-20 [facility] Albumin [Mass/Vol] 3.9 g/dL 3.5 - 5.2 g/dL [facility] ALP (Bld) [Catalytic activity/Vol] 85 U/L 35 - 104 U/L [facility] ALT [Catalytic activity/Vol] 53 U/L High 0 - 32 U/L [facility] Anion gap [Moles/Vol] 9 mmol/L 7 - 16 mmol/L [facility] AST [Catalytic activity/Vol] 70 U/L High 0 - 31 U/L [facility] Bilirubin [Mass/Vol] 0.2 mg/dL 0.0 - 1 .2 mg/dL [facility] Calcium [Mass/Vol] 9.0 mg/dL 8.6 - 10. 2 mg/dL [facility] Chloride [Moles/Vol] 104 mmol/L 98 - 10 7 mmol/L [facility] CO2 [Moles/Vol] 23 mmol/L 22 - 29 mmol/L [facility] Creatinine [Mass/Vol] 0.5 mg/dL 0.5 - 1.0 mg/dL [facility] Free PSA/Total PSA [Mass fraction] 7.4 g/dL 6.4 - 8.3 g/dL [facility] GFR >60 [facility] GFR Non- >60 >=60 mL/min/1.73 [facility] Comment on above: Chronic Kidney Disea se: less than 60 ml/min/1.73 sq.m. Kidney Failure: less than 15 ml/min/1.73 sq.m. Results valid for patients 18 years and older. Glucose [Mass/Vol] 91 mg/dL 74 - 99 mg/dL [facility] Interpretation and review of laboratory results Abnormal [facility] Potassium [Moles/Vol] 4.8 mmol/L 3.5 - 5.0 mmol/L [facility] Sodium [Moles/Vol] 136 mmol/L 132 - 146 mmol/L [facility] Urea nitrogen (BldV) [Mass/Vol] 6 mg/dL 6 - 20 mg/dL [facility] Lipid Panel Fastingon 2021 Cholesterol [Mass/Vol] 123 mg/dL Normal 0-199 [facility] HDL Cholesterol Fasting 30 mg/dL Normal >40 [facility] LDL Cholesterol (Calculated) Fasting 63 mg/dL Normal 0-99 [facility] Triglycerides Fasting 149 mg/dL Normal 0-149 [facility] VLDL Cholesterol (Calculated) Fasting 30 mg/dL Normal [facility] Lipid, Fastingon 05-31-2021 Cholesterol [Mass/Vol] 123 mg/dL 0 - 199 mg/dL [facility] Cholesterol in HDL [Mass/Vol] 30 mg/dL >40 [facility] Cholesterol in LDL [Mass/Vol] 63 mg/dL 0 - 99 mg/dL [facility] Cholesterol in VLDL [Mass/Vol] 30 mg/dL [facility] Triglyceride, Fasting 149 mg/dL 0 - 14 9 mg/dL [facility] Magnesiumon 05-31-2021 Magnesium [Mass/Vol] 1.8 mg/dL Normal 1.6-2.6 [facility] Magnesium [Mass/Vol] 1.8 mg/dL 1.6 - 2 .6 mg/dL [facility] No Panel Informationon 05-31 [facility] T4, Freeon 05-31-2021 Free T4 [Mass/Vol] 1.31 ng/dL 0.93 - 1. 70 ng/dL [facility] TSHon 05-31-2021 Interpretation and review of laboratory results Abnormal [facility] TSH Qn 0.141 m[IU]/L Low [facility] TSH w/out Reflexon TSH w/out Reflex 0.141 uIU/mL Low 0.270-4.200 [facility] Thyroxine Freeon 05-31-2021 Thyroxine Free 1.31 ng/dL Normal 0.93-1.70 [facility] Vitamin D 25 Hydroxyon 05-31 Vit D, 25-Hydroxy 33 ng/mL 30 - 100 ng/mL [facility] Comment on above: <20 ng/mL........... ..Deficient 20-30 ng/mL...........Insufficient 30-100 ng/mL..........Sufficient >100 ng/mL............Toxic [facility] Vitamin D, 25-hydroxyon 05-13 Vitamin D, 25-hydroxy 33 ng/mL Normal 30-100 [facility] Comment on above: Result Comment: <20 ng/mL.............Deficient 20-30 ng/mL...........Insufficient 30-100 ng/mL..........Sufficient >100 ng/mL............Toxic Basic Metab w/rfx MGon 05-03 (cont.) Normal [facility] Comment on above: Result Comment: Aver age GFR for 20-29 years old: 116 mL/min/1.73sq m Chronic Kidney Disease: <60 mL/min/1.73sq m Kidney failure: <15 mL/min/1.73sq m eGFR calculated using average adult body mass. Additional eGFR calculator available at: http://www.[employer]Build[employer].zulily/multiple_crcl_2011.htm Performed By: #### T ROPI, HCG, BMPX, CDP #### [facility] [employer] [address] [place] [address] Vendor Management Specialist: Clark Segovia MD Anion gap [Moles/Vol] 12 mmol/L Normal 9-17 [facility] Comment on above: Performed By: #### T ROPI, HCG, BMPX, CDP #### [facility] [address] [place] [address] Vendor Management Specialist: Clark Segovia MD Calcium [Mass/Vol] 9.2 mg/dL Normal 8.6-10.4 [facility] Comment on above: Performed By: #### T ROPI, HCG, BMPX, CDP #### [facility] [employer] [address] [place] [address] Vendor Management Specialist: Clark Segovia MD Chloride [Moles/Vol] 102 mmol/L Normal 98-107 [facility] Comment on above: Performed By: #### T ROPI, HCG, BMPX, CDP #### [facility] [employer] [address] [place] [address] Vendor Management Specialist: Clark Segovia MD CO2 [Moles/Vol] 24 mmol/L Normal 20-31 [facility] Comment on above: Performed By: #### T ROPI, HCG, BMPX, CDP #### [facility] [employer] [address] [place] [address] Vendor Management Specialist: Clark Segovia MD Creatinine [Mass/Vol] 0.50 mg/dL Normal 0.50-0.90 [facility] Comment on above: Performed By: #### T ROPI, HCG, BMPX, CDP #### [facility] [employer] [address] [place] [address] Vendor Management Specialist: Clark Segovia MD GFR, Amer >60 Normal >60 [facility] Comment on above: Performed By: #### T ROPI, HCG, BMPX, CDP #### [facility] [employer] [address] [place] [address] Vendor Management Specialist: Clark Segovia MD GFR,non Amer >60 Normal >60 [facility] Comment on above: Performed By: #### T ROPI, HCG, BMPX, CDP #### [facility] [address] [place] [address] Vendor Management Specialist: Clark Segovia MD Glucose [Mass/Vol] 95 mg/dL Normal 70-99 [facility] Comment on above: Performed By: #### T ROPI, HCG, BMPX, CDP #### [facility] [employer] [address] [place] [address] Vendor Management Specialist: Clark Segovia MD Potassium [Moles/Vol] 3.8 mmol/L Normal 3.7-5.3 [facility] Comment on above: Performed By: #### T ROPI, HCG, BMPX, CDP #### [facility] [employer] [address] [place] [address] Vendor Management Specialist: Clark Segovia MD Sodium [Moles/Vol] 138 mmol/L Normal 135-144 [facility] Comment on above: Performed By: #### T ROPI, HCG, BMPX, CDP #### [facility] [employer] [address] [place] [address] Vendor Management Specialist: Clark Segovia MD Urea nitrogen [Mass/Vol] 4 mg/dL Low 6-20 [facility] Comment on above: Performed By: #### T ROPI, HCG, BMPX, CDP #### [facility] [employer] [address] [place] [address] Vendor Management Specialist: Clark Segovia MD Basic Metabolic Panel w/ Ref paresh to MGon 05-03-2021 Anion gap [Moles/Vol] 12 mmol/L 9 - 17 mmol/L [facility] Calcium [Mass/Vol] 9.2 mg/dL 8.6 - 10. 4 mg/dL [facility] Chloride [Moles/Vol] 102 mmol/L 98 - 10 7 mmol/L [facility] CO2 [Moles/Vol] 24 mmol/L 20 - 31 mmol/L [facility] Creatinine [Mass/Vol] 0.5 mg/dL 0.50 - 0.90 mg/dL [facility] GFR >60 >60 mL/min [facility] GFR Non- >60 >60 mL/min [facility] GFR/1.73 sq M.predicted MDRD (S/P/Bld) [Vol rate/Area] [facility] Comment on above: Average GFR for 20-2 9 years old: 116 mL/min/1.73sq m Chronic Kidney Disease: <60 mL/min/1.73sq m Kidney failure: <15 mL/min/1.73sq m eGFR calculated using average adult body mass. Additional eGFR calculator available at: http://www.KuponGid/multiple_crcl_2012.htm Glucose [Mass/Vol] 95 mg/dL 70 - 99 mg/dL [facility] Interpretation and review of laboratory results Abnormal [facility] Potassium [Moles/Vol] 3.8 mmol/L 3.7 - 5.3 mmol/L [facility] Sodium [Moles/Vol] 138 mmol/L 135 - 144 mmol/L [facility] Urea nitrogen (BldV) [Mass/Vol] 4 mg/dL Low 6 - 20 mg/dL [facility] CBC with Auto Differentialon 05-03-2021 Absolute Eos # 0.12 [facility] Absolute Immature Granulocyte <0.03 [facility] Absolute Lymph # 2.11 [facility] alth Absolute [place] # 0.86 [facility] lt Basophils (Bld) [#/Vol] 0.04 10*3/uL [facility] Basophils/100 WBC (Bld) 1 % 0 - 2 % [facility] Eosinophils/100 WBC (Bld) 1 % 1 - 4 % [facility] Hematocrit (Bld) [Volume fraction] 39.2 % 36.3 - 47.1 % [facility] Hemoglobin.gastrointe stinal spec 1 Ql (Stl) 13.6 g/dL 11.9 - 15.1 g/dL [facility] Immature granulocytes/100 WBC (Bld) 0 % 0 [facility] Lymphocytes/100 WBC (Bld) 25 % 24 - 43 % [facility] MCH (RBC) [Entitic mass] 32.4 pg 25.2 - 33.5 pg [facility] MCHC (RBC) [Mass/Vol] 34.7 g/dL 28.4 - 34.8 g/dL [facility] MCV (RBC) [Entitic vol] 93.3 fL 82.6 - 102.9 fL [facility] Monocytes/100 WBC (Bld) 10 % 3 - 12 % [facility] NRBC Automated 0.0 0.0 per 100 WBC [facility] Platelet distribution width (Bld) [Ratio] 12.4 % 11.8 - 14.4 % [facility] Platelet mean volume (Bld) [Entitic vol] 10.2 fL 8.1 - 13.5 fL [facility] Platelets (Bld) [#/Vol] 196 10*3/uL [facility] RBC (Bld) [#/Vol] 4.20 10*6/uL 3.95 - 5.1 1 m/uL [facility] Segmented neutrophils/100 WBC (Bld) 63 % 36 - 65 % [facility] Segs [facility] (Bld[facility] [#/Vol] 8.5 10*3/uL [facility] CBC with Diffon 05-03-2021 Abs. Basophil 0.04 k/uL Normal 0.00-0.20 [facility] Comment on above: Performed By: #### T ROPI, HCG, BMPX, CDP #### [facility] [address] [place], [place] [id number] Vendor Management Specialist: Clark Segovia MD Abs.Imm.Granulocyte <0.03 Normal 0.00-0.30 [facility] Comment on above: Performed By: #### T ROPI, HCG, BMPX, CDP #### [facility] [address] [place], [place] [id number] Vendor Management Specialist: Clark Segovia MD Abs.Neutrophil (Seg) 5.36 k/uL Normal 1.50-8.10 [facility] Comment on above: Performed By: #### T ROPI, HCG, BMPX, CDP #### [facility] [address] [place] [address] Vendor Management Specialist: Clark Segovia MD Basophils/100 WBC (Bld) 1 % Normal 0-2 [facility] Comment on above: Performed By: #### T ROPI, HCG, BMPX, CDP #### [facility] [employer] [address] [place] [address] Vendor Management Specialist: Clark Segovia MD Eosinophils (Bld) [#/Vol] 0.12 10*3/uL Normal 0.00-0.44 [facility] Comment on above: Performed By: #### T ROPI, HCG, BMPX, CDP #### [facility] [employer] [address] [place] [address] Vendor Management Specialist: Clark Segovia MD Eosinophils/100 WBC (Bld) 1 % Normal 1-4 [facility] Comment on above: Performed By: #### T ROPI, HCG, BMPX, CDP #### [facility] [employer] [address] [place] [address] Vendor Management Specialist: Clark Segovia MD Erythrocyte distribution width (RBC) [Ratio] 12.4 % Normal 11.8-14.4 [facility] Comment on above: Performed By: #### T ROPI, HCG, BMPX, CDP #### [facility] [employer] [address] [place] [address] Vendor Management Specialist: Clark Segovia MD Hematocrit (Bld) [Volume fraction] 39.2 % Normal 36.3-47.1 [facility] Comment on above: Performed By: #### T ROPI, HCG, BMPX, CDP #### [facility] [employer] [address] [place] [address] Vendor Management Specialist: Clark Segovia MD Hemoglobin (Bld) [Mass/Vol] 13.6 g/dL Normal 11.9-15.1 [facility] Comment on above: Performed By: #### T ROPI, HCG, BMPX, CDP #### [address] [address] Vendor Management Specialist: Clark Segovia MD Immature granulocytes/100 WBC (Bld) 0 % Normal 0 [facility] Comment on above: Performed By: #### T ROPI, HCG, BMPX, CDP #### [address] [address] Vendor Management Specialist: Clark Segovia MD Lymphocytes (Bld) [#/Vol] 2.11 10*3/uL Normal 1.10-3.70 [facility] Comment on above: Performed By: #### T ROPI, HCG, BMPX, CDP #### [address] [address] Vendor Management Specialist: Clark Segovia MD Lymphocytes/100 WBC (Bld) 25 % Normal 24-43 [facility] Comment on above: Performed By: #### T ROPI, HCG, BMPX, CDP #### [address] [address] Vendor Management Specialist: Clark Segovia MD MCH (RBC) [Entitic mass] 32.4 pg Normal 25.2-33.5 [facility] Comment on above: Performed By: #### T ROPI, HCG, BMPX, CDP #### [address] [address] Vendor Management Specialist: Clark Segovia MD MCHC (RBC) [Mass/Vol] 34.7 g/dL Normal 28.4-34.8 [facility] Comment on above: Performed By: #### T ROPI, HCG, BMPX, CDP #### [facility] [employer] [address] [place] [address] Vendor Management Specialist: Clark Segovia MD MCV (RBC) [Entitic vol] 93.3 fL Normal 82.6-102.9 [facility] Comment on above: Performed By: #### T ROPI, HCG, BMPX, CDP #### [facility] [employer] [address] [place] [address] Vendor Management Specialist: Clark Segovia MD Monocytes (Bld) [#/Vol] 0.86 10*3/uL Normal 0.10-1.20 [facility] Comment on above: Performed By: #### T ROPI, HCG, BMPX, CDP #### [facility] [employer] [address] [place] [address] Vendor Management Specialist: Clark Segovia MD Monocytes/100 WBC (Bld) 10 % Normal 3-12 [facility] Comment on above: Performed By: #### T ROPI, HCG, BMPX, CDP #### [facility] [employer] [address] [place] [address] Vendor Management Specialist: Clark Segovia MD Neutrophil (Seg) 63 % Normal 36-65 [facility] Comment on above: Performed By: #### T ROPI, HCG, BMPX, CDP #### [facility] [employer] [address] [place] [address] Vendor Management Specialist: Clark Segovia MD NRBC Automated 0.0 per 100 WBC Normal 0.0 [facility] Comment on above: Performed By: #### T ROPI, HCG, BMPX, CDP #### [address] [address] Vendor Management Specialist: Clark Segovia MD Platelet mean volume (Bld) [Entitic vol] 10.2 fL Normal 8.1-13.5 [facility] Comment on above: Performed By: #### T ROPI, HCG, BMPX, CDP #### [facility] [employer] [address] [place] [address] Vendor Management Specialist: Clakr Segovia MD Platelets (Bld) [#/Vol] 196 10*3/uL Normal 138-453 [facility] Comment on above: Performed By: #### T ROPI, HCG, BMPX, CDP #### [facility] [address] [place] [address] Vendor Management Specialist: Clark Segovia MD RBC (Bld) [#/Vol] 4.20 10*6/uL Normal 3.95-5.11 [facility] Comment on above: Performed By: #### T ROPI, HCG, BMPX, CDP #### [facility] [address] [place] [address] Vendor Management Specialist: Clark Segovia MD WBC (Bld) [#/Vol] 8.5 10*3/uL Normal 3.5-11.3 [facility] Comment on above: Performed By: #### T ROPI, HCG, BMPX, CDP #### [facility] [address] [place] [address] Vendor Management Specialist: Clark Segovia MD CT CHEST PULMONARY EMBOLISM W CONTRASTon 05-03-2021 CT CHEST PULMONARY EMBOLISM W CONTRAST EXAMINATION: CTA OF THE CHEST 05/03/2021 3:11 am TECHNIQUE: CTA of the chest was performed after the administration of intravenous contrast. Multiplanar reformatted images are provided for review. MIP images are provided for review. Dose modulation, iterative reconstruction, and/or weight based adjustment of the mA/kV was utilized to reduce the radiation dose to as low as reasonably achievable. COMPARISON: None. HISTORY: ORDERING SYSTEM PROVIDED HISTORY: Shortness of breath, chest pain, tachycardia TECHNOLOGIST PROVIDED HISTORY: Shortness of breath, chest pain, tachycardia Decision Support Exception - unselect if not a suspected or confirmed emergency medical condition->Emergency Medical Condition (MA) FINDINGS: Pulmonary Arteries: Pulmonary arteries are adequately opacified for evaluation. No evidence of intraluminal filling defect to suggest pulmonary embolism. Main pulmonary artery is normal in caliber. Mediastinum: No evidence of mediastinal lymphadenopathy. The heart and pericardium demonstrate no acute abnormality. There is no acute abnormality of the thoracic aorta. Lungs/pleura: The lungs are without acute process. No focal consolidation or pulmonary edema. No evidence of pleural effusion or pneumothorax. Upper Abdomen: Limited images of the upper abdomen are unremarkable. Soft Tissues/Bones: No acute bone or soft tissue abnormality. IMPRESSION: No evidence of pulmonary embolism or acute pulmonary abnormality. RECOMMENDATIONS: Unavailable Interpreted by: Merle Griffith MD Signed by: Merle Griffith MD 05/03/21 Final result Normal [facility] No evidence of pulmo nary embolism or acute pulmonary abnormality. RECOMMENDATIONS: Unavailable [facility] EXAMINATION: CTA OF THE CHEST 05/03/2021 3:11 am TECHNIQUE: CTA of the chest was performed after the administration of intravenous contrast. Multiplanar reformatted images are provided for review. MIP images are provided for review. Dose modulation, iterative reconstruction, and/or weight based adjustment of the mA/kV was utilized to reduce the radiation dose to as low as reasonably achievable. COMPARISON: None. HISTORY: ORDERING SYSTEM PROVIDED HISTORY: Shortness of breath, chest pain, tachycardia TECHNOLOGIST PROVIDED HISTORY: Shortness of breath, chest pain, tachycardia Decision Support Exception - unselect if not a suspected or confirmed emergency medical condition->Emergency Medical Condition (MA) FINDINGS: Pulmonary Arteries: Pulmonary arteries are adequately opacified for evaluation. No evidence of intraluminal filling defect to suggest pulmonary embolism. Main pulmonary artery is normal in caliber. Mediastinum: No evidence of mediastinal lymphadenopathy. The heart and pericardium demonstrate no acute abnormality. There is no acute abnormality of the thoracic aorta. Lungs/pleura: The lungs are without acute process. No focal consolidation or pulmonary edema. No evidence of pleural effusion or pneumothorax. Upper Abdomen: Limited images of the upper abdomen are unremarkable. Soft Tissues/Bones: No acute bone or soft tissue abnormality. [facility] Merle Griffith MD - 05/03/2021 EXAMINATION: CTA OF THE CHEST 05/03/2021 3:11 am TECHNIQUE: CTA of the chest was performed after the administration of intravenous contrast. Multiplanar reformatted images are provided for review. MIP images are provided for review. Dose modulation, iterative reconstruction, and/or weight based adjustment of the mA/kV was utilized to reduce the radiation dose to as low as reasonably achievable. COMPARISON: None. HISTORY: ORDERING SYSTEM PROVIDED HISTORY: Shortness of breath, chest pain, tachycardia TECHNOLOGIST PROVIDED HISTORY: Shortness of breath, chest pain, tachycardia Decision Support Exception - unselect if not a suspected or confirmed emergency medical condition->Emergency Medical Condition (MA) FINDINGS: Pulmonary Arteries: Pulmonary arteries are adequately opacified for evaluation. No evidence of intraluminal filling defect to suggest pulmonary embolism. Main pulmonary artery is normal in caliber. Mediastinum: No evidence of mediastinal lymphadenopathy. The heart and pericardium demonstrate no acute abnormality. There is no acute abnormality of the thoracic aorta. Lungs/pleura: The lungs are without acute process. No focal consolidation or pulmonary edema. No evidence of pleural effusion or pneumothorax. Upper Abdomen: Limited images of the upper abdomen are unremarkable. Soft Tissues/Bones: No acute bone or soft tissue abnormality. IMPRESSION: No evidence of pulmonary embolism or acute pulmonary abnormality. RECOMMENDATIONS: Unavailable [facility]: Radiology Study observation (narrative) [facility]: CT CHEST PULMONARY EMBOLISM W CONTRASTOrdered By: Merle Griffith on 05-03-2021 [facility]: HCG Qualitative, Serumon hCG Qual Negative NEGATIVE [facility] Comment on above: Specimens with hCG l evels near the threshold of the test (25 mIU/mL) may give a negative or indeterminate result. In such cases, another test should be performed with a new specimen in 48-72 hours. If early is suspected clinically in this setting, correlation with quantitative serum b-hCG level is suggested. [facility] has confirmed the use of plasma for this test. This has not been cleared or approved by the U.S. Food and Drug Administration. The FDA has determined that such clearance is not necessary. [facility] HCG Screen, Bloodon 05-04-19 22 HCG Screen, Blood Negative Normal NEG [facility] Comment on above: Result Comment: Spec imens with hCG levels near the threshold of the test (25 mIU/mL) may give a negative or indeterminate result. In such cases, another test should be performed with a new specimen in 48-72 hours. If early is suspected clinically in this setting, correlation with quantitative serum b-hCG level is suggested. [facility] has confirmed the use of plasma for this test. This has not been cleared or approved by the U.S. Food and Drug Administration. The FDA has determined that such clearance is not necessary. Performed By: #### T ROPI, HCG, BMPX, CDP #### [facility] [address], [place] [id number] Vendor Management Specialist: Clark Segovia MD No Panel Informationon 05-03 [facility] Troponinon 05-03-2021 Troponin, High Sens <6 Normal 0-14 [facility] Comment on above: Result Comment: High Sensitivity Troponin values cannot be compared with other Troponin methodologies. Patients with high levels of Biotin oral intake (i.e >5mg/day) may have falsely decreased Troponin levels. Samples collected within 8 hours of biotin intake may require additional information for diagnosis. Performed By: #### T ROPI, HCG, BMPX, CDP #### [facility] [employer] [address] [place] [address] Vendor Management Specialist: Clark Segovia MD Troponin, High Sensitivity <6 0 - 14 ng/L [facility] Comment on above: High Sensitivity Troponin values cannot be compared with other Troponin methodologies. Patients with high levels of Biotin oral intake (i.e >5mg/day) may have falsely decreased Troponin levels. Samples collected within 8 hours of biotin intake may require additional information for diagnosis. .eGFRon 02-06-2021 eGFR AA >60 Normal >=60 [facility] Comment on above: Order Comment: Order added by Discern rule Result Comment: See comment. Performed By: #### E GFR #### [address] [address] eGFR Non-AA >60 Normal >=60 [facility] Comment on above: Order Comment: Order added by Discern rule Result Comment: Stag es of Chronic Kidney Disease GFR Stage 3a Mild to moderate loss of kidney function 59 to 45 Stage 3b Moderate to severe loss of kidney function 44 to 33 Stage 4 Severe loss of kidney function 29 to 15 Stage 5 Kidney failure Less than 15 GFR calculated using the CKD-EPI Creatinine Equation (2009): eGFR = 141 X min(SCr/?, 1)? X max(SCr /?, 1)-1.209 X 0.993Age X 1.018 [if female] X 1.159 [if Black] Abbreviations/Units: eGFR (estimated glomerular filtration rate) = mL/min/1.73 m2 SCr (standardized serum creatinine) = mg/dL ? = 0.7 (females) or 0.9 (males) ? = -0.329 (females) or -0.411 (males) min = indicates the minimum of SCr/? or 1 max = indicates the maximum of SCr/? or 1 age = years Performed By: #### E GFR #### [address] [address] CBCon 02-06-2021 Erythrocyte distribution width (RBC) [Ratio] 14.6 % Normal 11.6-14.8 [facility] Comment on above: Performed By: #### C BC #### [place] [id number] Hematocrit (Bld) [Volume fraction] 36.6 % Normal 36.0-46.0 [facility] Comment on above: Performed By: #### C BC #### [place] [id number] Hemoglobin (Bld) [Mass/Vol] 12.9 g/dL Normal 12.0-16.0 [facility] Comment on above: Performed By: #### C BC #### [address] [address] MCH (RBC) [Entitic mass] 32.3 pg Normal 27.0-35.0 [facility] Comment on above: Performed By: #### C BC #### [address] [address] MCHC 35.2 % Normal 31.0-37.0 [facility] Comment on above: Performed By: #### C BC #### [address] [address] MCV (RBC) [Entitic vol] 91.7 fL Normal 80.0-100.0 [facility] Comment on above: Performed By: #### C BC #### [address] [address] Platelet 168 x10*3/mcL Normal 150-350 [facility] Comment on above: Performed By: #### C BC #### [address] [address] Platelet mean volume (Bld) [Entitic vol] 8.2 fL Normal 6.7-10.6 [facility] Comment on above: Performed By: #### C BC #### [address] [address] RBC 3.99 x10*6/mcL Normal 3.80-5.20 [facility] Comment on above: Performed By: #### C BC #### [address] [address] WBC 5.6 x10*3/mcL Normal 4.5-11.0 [facility] Comment on above: Performed By: #### C BC #### [address] [address] CMPon 02-06-2021 Albumin [Mass/Vol] 3.4 g/dL Normal 3.2-4.9 [facility] Comment on above: Performed By: #### A LC #### [address] [address] Albumin/Globulin [Mass ratio] 1.1 {ratio} Normal 1.1-2.2 [facility] Comment on above: Performed By: #### A LC #### [address] [address] Alk Phos 68 IU/L Normal 32-91 [facility] Comment on above: Performed By: #### A LC #### [address] [address] ALT [Catalytic activity/Vol] 309 U/L High 14-54 [facility] Comment on above: Performed By: #### A LC #### [address] [address] Anion gap [Moles/Vol] 13 mmol/L Normal 7-17 [facility] Comment on above: Performed By: #### A LC #### [address] [address] AST [Catalytic activity/Vol] 392 U/L High 15-41 [facility] Comment on above: Performed By: #### A LC #### [facility] [address] [place] [address] Bili Total 0.7 mg/dL Normal 0.3-1.2 [facility] Comment on above: Performed By: #### A LC #### [facility] [address] [facility] [place] [address] Calcium [Mass/Vol] 8.2 mg/dL Low 8.5-10.3 [facility] Comment on above: Performed By: #### A LC #### [address] [address] Chloride [Moles/Vol] 107 mmol/L Normal 98-110 [facility] Comment on above: Performed By: #### A LC #### [address] [address] CO2 [Moles/Vol] 24 mmol/L Normal 22-32 [facility] Comment on above: Performed By: #### A LC #### [address] [place] [address] Creatinine [Mass/Vol] 0.58 mg/dL Normal 0.44-1.03 [facility] Comment on above: Performed By: #### A LC #### [address] [place] [address] Glucose [Mass/Vol] 84 mg/dL Normal 70-99 [facility] Comment on above: Performed By: #### A LC #### [address] [place] [address] Potassium [Moles/Vol] 3.9 mmol/L Normal 3.4-4.8 [facility] Comment on above: Performed By: #### A LC #### [address] [place] [address] Protein [Mass/Vol] 6.4 g/dL Low 6.5-8.1 [facility] Comment on above: Performed By: #### A LC #### [address] [place] [address] Sodium [Moles/Vol] 140 mmol/L Normal 133-142 [facility] Comment on above: Performed By: #### A LC #### [address] [address] Urea nitrogen [Mass/Vol] 13 mg/dL Normal 8-26 [facility] Comment on above: Performed By: #### A LC #### [address] [address] Urea nitrogen/Creatinine [Mass ratio] 22.4 mg/mg High 10.0-20.0 [facility] Comment on above: Performed By: #### A LC #### [address] [address] Ethanolon 02-06-2021 Ethanol, Plasma 124 mg/dL High <=9 [facility] Comment on above: Result Comment: To c onvert mg/dL to g/dL, divide result by 1,000. Legal limit of intoxication is 80 mg/dL (0.08 g/dL). Performed By: #### A LC #### [address] [address] Hep Func Panelon 02-06-2021 Albumin [Mass/Vol] 3.3 g/dL Normal 3.2-4.9 [facility] Comment on above: Performed By: #### C [id number] #### [address] [address] Alk Phos 68 IU/L Normal 32-91 [facility] Comment on above: Performed By: #### C [id number] #### [address] [address] ALT [Catalytic activity/Vol] 308 U/L High 14-54 [facility] Comment on above: Performed By: #### C [id number] #### [address] [address] AST [Catalytic activity/Vol] 404 U/L High 15-41 [facility] Comment on above: Performed By: #### C [id number] #### [facility] [address] [place] [address] Bili Direct 0.1 mg/dL Normal 0.1-0.5 [facility] Comment on above: Performed By: #### C [id number] #### [address] [address] Bili Indirect 0.8 mg/dL Normal 0.0-1.0 [facility] Comment on above: Performed By: #### C [id number] #### [address] [address] Bili Total 0.9 mg/dL Normal 0.3-1.2 [facility] Comment on above: Performed By: #### C [id number] #### [address] [address] Protein [Mass/Vol] 6.3 g/dL Low 6.5-8.1 [facility] Comment on above: Performed By: #### C [id number] #### [address] [address] Hgb A1con 02-06-2021 Glucose [Mass/Vol] 117 mg/dL High 68-114 [facility] Comment on above: Result Comment: Math ematical Calc approx. The mean gluc equivalency of A1c Performed By: #### C [id number] #### [address] [address] Hgb A1c 5.7 % A1c High 4.0-5.6 [facility] Comment on above: Result Comment: Refe rence Range: 4.0 - 5.6 % Normal 5.7 - 6.4 % Pre-Diabetes > 6.5 % Diabetes Performed By: #### C [id number] #### [address] [address] Inpatient Clinical Summaryon 02-06-2021 Inpatient Clinical Summary [address] [address] Clinical Summary Person Information Name: Lyle Flynn Age: 31 Years : 1990 Sex: Female PCP: Marital Status: Single PCP: Race: White Ethnicity: Not or Language: Ivorian Visit Id: Visit Reason: Alcohol withdrawal Speciality: Acuity: Enc Type: Inpatient Med Service: Emergency Medicine Arrival: 02/05/2021 16:34:16 Discharge: Dispo Type: Admitted as Inpatient Address: [address] [place] [id number] Diagnosis: 1:Alcohol intoxication; 2:Alcohol dependence; 3:Schizo-affective type schizophrenia, chronic state; 4:Tobacco dependency Discharged To: Home Treatments: Devices/Equipment: Professional Skilled Services: Special Services and Community Resources: Mode of Discharge Transportation: Discharge Orders Allergies No Known Allergies Functional Status: Sensory Deficits: History of Falls: Immediately prior to hospitalization, Within last three months, Within last one year Mobility Assistance Prior to Admission: ADLs: Independent Gait: Ambulation Assist: Assistive Device: Special Orthopedic Devices: Current Level of Assistance for Self-Care/Mobility: Cognitive Status: Orientation: Orientation Assessment Oriented x 4 Level of Consciousness: Alert Characteristics of Speech: Clear Aspiration Risk: None Affect/Behavior: Calm, Cooperative Laboratory or Other Results This Visit (last charted value for your 02/05/2021 visit) Hematology 02/06/2021 6:21 AM WBC: 5.6 x10 RBC: 3.99 x10 MCV: 91.7 fL -- Normal range between ( 80.0 and 100.0 ) MCHC: 35.2 % -- Normal range between ( 31.0 and 37.0 ) Hct: 36.6 % -- Normal range between ( 36.0 and 46.0 ) MCH: 32.3 pg -- Normal range between ( 27.0 and 35.0 ) Hgb: 12.9 g/dL -- Normal range between ( 12.0 and 16.0 ) Mean Platelet Volume: 8.2 fL -- Normal range between ( 6.7 and 10.6 ) Platelet: 168 x10 RDW: 14.6 % -- Normal range between ( 11.6 and 14.8 ) 02/05/2021 5:15 PM Neutro Auto: 54.2 % -- Normal range between ( 47.2 and 70.8 ) Lymph Auto: 39.7 % -- Normal range between ( 27.2 and 40.8 ) [place] Auto: 5.1 % -- Normal range between ( 3.7 and 11.9 ) Eos Auto: 0.6 % -- Normal range between ( 0.0 and 5.4 ) Basophil Auto: 0.4 % -- Normal range between ( 0.0 and 1.5 ) Baso Absolute: 0.0 x10 Lymph Absolute: 4.5 x10 [place] Absolute: 0.6 x10 Neutro Absolute: 6.1 x10 Eos Absolute: 0.1 x10 Coagulation 02/06/2021 6:21 AM PT: 10.5 seconds -- Normal range between ( 9.4 and 12.1 ) INR: 1.0 ratio PTT: 23.3 seconds -- Normal range between ( 20.2 and 27.0 ) Urinalysis 02/05/2021 7:22 PM UA Spec Grav: 1.003 -- Normal range between ( 1.003 and 1.035 ) UA pH: 5.0 Chemistry 02/06/2021 6:21 AM Creatinine Lvl: 0.58 mg/dL -- Normal range between ( 0.44 and 1.03 ) BUN: 13 mg/dL -- Normal range between ( 8 and 26 ) Glucose Lvl: 84 mg/dL -- Normal range between ( 70 and 99 ) Potassium Lvl: 3.9 mmol/L -- Normal range between ( 3.4 and 4.8 ) AST: 404 IU/L -- Normal range between ( 15 and 41 ) ALT: 308 IU/L -- Normal range between ( 14 and 54 ) Sodium Lvl: 140 mmol/L -- Normal range between ( 133 and 142 ) Hgb A1c: 5.7 % A1c -- Normal range between ( 4.0 and 5.6 ) Bili Indirect: 0.8 mg/dL -- Normal range between ( 0.0 and 1.0 ) Calcium Lvl: 8.2 mg/dL -- Normal range between ( 8.5 and 10.3 ) Phosphorus: 3.2 mg/dL -- Normal range between ( 2.5 and 4.6 ) Albumin Lvl: 3.3 g/dL -- Normal range between ( 3.2 and 4.9 ) Total Protein: 6.3 g/dL -- Normal range between ( 6.5 and 8.1 ) Bili Total: 0.9 mg/dL -- Normal range between ( 0.3 and 1.2 ) Alk Phos: 68 IU/L -- Normal range between ( 32 and 91 ) Bili Direct: 0.1 mg/dL -- Normal range between ( 0.1 and 0.5 ) Chloride: 107 mmol/L -- Normal range between ( 98 and 110 ) CO2: 24 mmol/L -- Normal range between ( 22 and 32 ) Anion Gap: 13 -- Normal range between ( 7 and 17 ) TSH: 2.49 mcIU/mL -- Normal range between ( 0.45 and 5.33 ) eGFR Non-AA: >60 mL/min/1.73m? eGFR AA: >60 mL/min/1.73m? eAvg Glucose: 117 mg/dL -- Normal range between ( 68 and 114 ) BUN Crea Ratio: 22.4 -- Normal range between ( 10.0 and 20.0 ) AG Ratio: 1.1 -- Normal range between ( 1.1 and 2.2 ) T4 Total: 5.7 mcg/dL -- Normal range between ( 5.0 and 11.5 ) 02/05/2021 7:22 PM Ur Creatinine Tox Scrn: <10.0 mg/dL 02/05/2021 5:15 PM Amylase Lvl: 121 IU/L -- Normal range between ( 28 and 100 ) Folate Lvl: 10.5 ng/mL Lipase Lvl: 118 IU/L -- Normal range between ( 22 and 51 ) Magnesium Lvl: 2.2 mg/dL -- Normal range between ( 1.7 and 2.4 ) Vitamin B12 Lvl: 406 pg/mL -- Normal range between ( 180 and 914 ) Toxicology 02/06/2021 6:21 AM Ethanol, Plasma: 124 mg/dL 02/05/2021 7:22 PM Ur PCP Scrn: Negative ng/mL Ur Opiate Scrn: Negative ng/ (more content not included)... Normal [facility] MRSA, PCRon 02-06-2021 Methicillin Resistant Staph aurus(MRSA) Negative Normal [facility] Comment on above: Result Comment: The [employer] [place] Xpert MRSA Assay is a qualitative in vitro diagnostic test designed for rapid detection of Methicillin-Resistant Staphylococcus aureus (MRSA) from nasal swabs in patients at risk for nasal colonization.The test utilizes automated real-time polymerase chain reaction (PCR) to detect MRSA DNA,because the detection of MRSA is dependent on the number of organisms present. A positive test result does not necessarily indicate the presence of viable organism. It is however,presumptive for the presence of MRSA.Test results might be affected by concurrent antibiotic therapy. Therefore, therapeutic success or failure cannot be assessed using this test because DNA might persist following antimicrobial therapy. Mutations or polymorphisms in primer or probe binding regions may affect detection of new or unknown MRSA variants resulting in a false negative result. Results from the Xpert MRSA Assay should be interpreted in conjunction with other laboratory and clinical data available to the clinician. Performed By: #### A LC #### [address] [address] PTon 02-06-2021 INR Coag (PPP) [Relative time] 1.0 {INR} Normal <=3.5 [facility] Comment on above: Result Comment: INR has no normal range. INR Therapeutic range is: 2.0-3.0 (AF, CVA, TIAs, DVT prophylaxis, acute DVT) 2.5-3.5 (Mech heart valves, recurrent thrombosis/emboli) Performed By: #### C BC #### [address] [address] PT Coag (PPP) [Time] 10.5 s Normal 9.4-12.1 [facility] Comment on above: Performed By: #### C BC #### [address] [address] PTTon 02-06-2021 aPTT Coag (Bld) [Time] 23.3 s Normal 20.2-27.0 [facility] Comment on above: Performed By: #### A LC #### [address] [address] Phosphoruson 02-06-2021 Phosphate [Mass/Vol] 3.2 mg/dL Normal 2.5-4.6 [facility] Comment on above: Performed By: #### C [id number] #### [address] [address] Progress Note-Nurseon 2020 Progress Note-Nurse Dr. Arnold was at bedside explained potential symptoms and problems that may occur after leaving while going through [facility]. Patient states she is going to go to an outpatient program. Patient wants to be discharged. Electronically signed by _ LongMartha 02/06/21 15:10 EST Normal [facility] Progress Note-Nurse Patient asked about her gabapentin and stated she wants to go home. provider notified about her request. Electronically signed by _ LongMartha 02/06/21 14:30 EST Normal [facility] Progress Note-Nurse Patient still sleepy , will answer question. Electronically signed by _ LongMartha 02/06/21 09:09 EST Normal [facility] TSHon 02-06-2021 TSH Qn 2.49 m[IU]/L Normal 0.45-5.33 [facility] Comment on above: Result Comment: Refe rence Ranges for individuals from to 18 years of age were obtained from The [employer] Handbook (20 ed) published by [facility]. Reference Ranges for Females: Females, 1st Trimester 0.05 ? 3.7 uIU/mL Females, 2nd Trimester 0.31 ? 4.35 uIU/mL Females, 3rd Trimester 0.41 ? 5.18 uIU/mL Performed By: #### C [id number] #### [place] [address] Total T4on 02-06-2021 T4 [Mass/Vol] 5.7 ug/dL Normal 5.0-11.5 [facility] Comment on above: Performed By: #### C [id number] #### [address] [address] .Fentanyl Scrn wo Conf,Uron 02-05-2021 Ur Fentanyl Scrn Negative Normal NEG <1.0 [facility] Comment on above: Performed By: #### C BC #### [address] [address] Ur Fentanyl Scrn Qnt 0.15 ng/mL Normal <=0.99 [facility] Comment on above: Performed By: #### C BC #### [place] [address] .eGFRon 02-05-2021 eGFR AA >60 Normal >=60 [facility] Comment on above: Result Comment: See comment. Performed By: #### A LC #### [place] [address] eGFR Non-AA >60 Normal >=60 [facility] Comment on above: Result Comment: Stag es of Chronic Kidney Disease GFR Stage 3a Mild to moderate loss of kidney function 59 to 45 Stage 3b Moderate to severe loss of kidney function 44 to 33 Stage 4 Severe loss of kidney function 29 to 15 Stage 5 Kidney failure Less than 15 GFR calculated using the CKD-EPI Creatinine Equation (2009): eGFR = 141 X min(SCr/?, 1)? X max(SCr /?, 1)-1.209 X 0.993Age X 1.018 [if female] X 1.159 [if Black] Abbreviations/Units: eGFR (estimated glomerular filtration rate) = mL/min/1.73 m2 SCr (standardized serum creatinine) = mg/dL ? = 0.7 (females) or 0.9 (males) ? = -0.329 (females) or -0.411 (males) min = indicates the minimum of SCr/? or 1 max = indicates the maximum of SCr/? or 1 age = years Performed By: #### A LC #### [address] [address] Amylaseon 02-05-2021 Amylase [Catalytic activity/Vol] 121 U/L High 28-100 [facility] Comment on above: Performed By: #### A LC #### [address] [address] B12/Folate Lvlon 02-05-2021 Cobalamin (Vitamin B12) [Mass/Vol] 406 pg/mL Normal 180-914 [facility] Comment on above: Performed By: #### C [id number] #### [address] [address] Folate Lvl 10.5 ng/mL Normal >=5.9 [facility] Comment on above: Result Comment: A [facility] Technical Consultation has determined that deficient Folate concentrations are considered to be less than 4 ng/mL. Performed By: #### C [id number] #### [address] [address] CBC w/ Diffon 02-05-2021 Erythrocyte distribution width (RBC) [Ratio] 14.3 % Normal 11.6-14.8 [facility] Comment on above: Performed By: #### C BC #### [address] [address] Hematocrit (Bld) [Volume fraction] 39.4 % Normal 36.0-46.0 [facility] Comment on above: Performed By: #### C BC #### [address] [address] Hemoglobin (Bld) [Mass/Vol] 13.8 g/dL Normal 12.0-16.0 [facility] Comment on above: Performed By: #### C BC #### [address] [address] MCH (RBC) [Entitic mass] 31.9 pg Normal 27.0-35.0 [facility] Comment on above: Performed By: #### C BC #### [address] [address] MCHC 34.9 % Normal 31.0-37.0 [facility] Comment on above: Performed By: #### C BC #### [address] [address] MCV (RBC) [Entitic vol] 91.2 fL Normal 80.0-100.0 [facility] Comment on above: Performed By: #### C BC #### [place] [id number] Platelet 199 x10*3/mcL Normal 150-350 [facility] Comment on above: Performed By: #### C BC #### [place] [id number] Platelet mean volume (Bld) [Entitic vol] 8.2 fL Normal 6.7-10.6 [facility] Comment on above: Performed By: #### C BC #### [place] [id number] RBC 4.32 x10*6/mcL Normal 3.80-5.20 [facility] Comment on above: Performed By: #### C BC #### [place] [id number] WBC 11.2 x10*3/mcL High 4.5-11.0 [facility] Comment on above: Performed By: #### C BC #### [place] [id number] CMPon 02-05-2021 Albumin [Mass/Vol] 4.1 g/dL Normal 3.2-4.9 [facility] Comment on above: Performed By: #### C [id number] #### [place] [id number] Albumin/Globulin [Mass ratio] 1.1 {ratio} Normal 1.1-2.2 [facility] Comment on above: Performed By: #### C [id number] #### [place] [id number] Alk Phos 79 IU/L Normal 32-91 [facility] Comment on above: Performed By: #### C [id number] #### [address] [address] ALT [Catalytic activity/Vol] 320 U/L High 14-54 [facility] Comment on above: Performed By: #### C [id number] #### [address] [address] Anion gap [Moles/Vol] 14 mmol/L Normal 7-17 [facility] Comment on above: Performed By: #### C [id number] #### [address] [address] AST [Catalytic activity/Vol] 431 U/L High 15-41 [facility] Comment on above: Performed By: #### C [id number] #### [address] [address] Bili Total 0.4 mg/dL Normal 0.3-1.2 [facility] Comment on above: Performed By: #### C [id number] #### [address] [address] Calcium [Mass/Vol] 9.5 mg/dL Normal 8.5-10.3 [facility] Comment on above: Performed By: #### C [id number] #### [address] [address] Chloride [Moles/Vol] 105 mmol/L Normal 98-110 [facility] Comment on above: Performed By: #### C [id number] #### [address] [address] CO2 [Moles/Vol] 25 mmol/L Normal 22-32 [facility] Comment on above: Performed By: #### C [id number] #### [address] [address] Creatinine [Mass/Vol] 0.64 mg/dL Normal 0.44-1.03 [facility] Comment on above: Performed By: #### C [id number] #### [address] [address] Glucose [Mass/Vol] 103 mg/dL High 70-99 [facility] Comment on above: Performed By: #### C [id number] #### [address] [address] Potassium [Moles/Vol] 3.9 mmol/L Normal 3.4-4.8 [facility] Comment on above: Performed By: #### C [id number] #### [address] [address] Protein [Mass/Vol] 7.7 g/dL Normal 6.5-8.1 [facility] Comment on above: Performed By: #### C [id number] #### [address] [address] Sodium [Moles/Vol] 140 mmol/L Normal 133-142 [facility] Comment on above: Performed By: #### C [id number] #### [address] [address] Urea nitrogen [Mass/Vol] 13 mg/dL Normal 8-26 [facility] Comment on above: Performed By: #### C [id number] #### [address] [address] Urea nitrogen/Creatinine [Mass ratio] 20.3 mg/mg High 10.0-20.0 [facility] Comment on above: Performed By: #### C [id number] #### [address] [address] COV19 Rapidon 02-05-2021 Employed in healthcare? No Normal [facility] Comment on above: Performed By: #### A LC #### [address] [address] Group care resident? No Normal [facility] Comment on above: Performed By: #### A #### [facility] [address] [facility] [address] In ICU? Yes Normal [facility] Comment on above: Performed By: #### A #### [facility] [address] [facility] [place] [address] status? Not Normal [facility] Comment on above: Performed By: #### A #### [facility] [address] [facility] [place] [address] Reason for Rapid Test Inpatient Normal [facility] Comment on above: Performed By: #### A #### [facility] [address] [facility] [place] [address] SARS-CoV-2 (COVID-19) RNA MOISES+probe Ql (Unsp spec) Negative Normal Negative [facility] Comment on above: Result Comment: The 2019 novel coronavirus SARS-CoV-2 target nucleic acids are not detected. This test is for the detection of SARS-CoV-2 RNA. Positive results are indicative of active infection with SARS-CoV-2. Positive results do not rule out bacterial infection or co-infection with other viruses. Negative results should be treated as presumptive and, if inconsistent with clinical signs and symptoms or necessary for patient management, should be tested with an alternative molecular assay.Negative results do not preclude SARS-CoV-2 infection and should not be used as the sole basis for treatment or other patient management decisions. Clinical correlation with patient history and other diagnostic information is necessary to determine patient infection status. ADDITIONAL INFORMATION: Testing was performed using the ID NOW COVID-19 test by [employer], which has received Emergency Use Authorization (EUA) by the U.S. Food and Drug Administration. The [place] ID NOW COVID-19 test performs best when patients are tested within the first 7 days of symptom onset. Results should be interpreted with caution for asymptomatic patients or those tested outside the 7 day target. Refer to CDC guidelines for further testing algorithms. Fact sheets for this Emergency Use Authorization (EUA) assay can be found at the following links: Fact Sheet for HealthCare Providers: https://www.fda.gov/media/143127/download Fact Sheet for Patients: https://www.fda.gov/media/583365/download Performed By: #### A LC #### [address] [address] SARS-CoV-2 (COVID-19) RNA MOISES+probe Ql (Unsp spec) No Normal [facility] Comment on above: Performed By: #### A LC #### [address] [address] SARS-CoV-2 (COVID-19) RNA MOISES+probe Ql (Unsp spec) Unknown Normal [facility] Comment on above: Performed By: #### A LC #### [address] [address] Symptomatic as defined by CDC? No Normal [facility] Comment on above: Performed By: #### A LC #### [address] [address] Diff Autoon 02-05-2021 Baso Absolute 0.0 x10*3/mcL Normal 0.0-0.2 [facility] Comment on above: Performed By: #### C BC #### [address] [address] Basophils/100 WBC (Bld) 0.4 % Normal 0.0-1.5 [facility] Comment on above: Performed By: #### C BC #### [address] [address] Eos Absolute 0.1 x10*3/mcL Normal 0.0-0.4 [facility] Comment on above: Performed By: #### C BC #### [address] [address] Eosinophils/100 WBC (Bld) 0.6 % Normal 0.0-5.4 [facility] Comment on above: Performed By: #### C BC #### [address] [address] Lymph Absolute 4.5 x10*3/mcL Normal 1.0-4.8 [facility] Comment on above: Performed By: #### C BC #### [address] [address] Lymphocytes/100 WBC (Bld) 39.7 % Normal 27.2-40.8 [facility] Comment on above: Performed By: #### C BC #### [address] [address] [place] Absolute 0.6 x10*3/mcL Normal 0.1-1.1 [facility] Comment on above: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 (333.94) (G25.81) Hepatitis-C (070.70) (B19.20) Nausea in adult (787.02) (R11.0) Orders Bipolar depression Start: Venlafaxine HCl - 37.5 MG Oral Tablet; TAKE 1 TABLET DAILY Rx By: Nini Wolf; Dispense: 30 Days ; #:30 Tablet; Refill: 0;For: Bipolar depression; LISA = N; Record Renew: Latuda 120 MG Oral Tablet; Take 1 tablet daily Rx By: Nini Wolf; Dispense: 30 Days ; #:30 Tablet; Refill: 1;For: Bipolar depression; LISA = N; Verified Transmission to [facility] 1448; Last Updated By: [employer]; 06/02/2020 8:33:07 AM Generalized anxiety disorder with panic attacks Renew: busPIRone HCl - 10 MG Oral Tablet; TAKE 1-2 TABLETS 3 times daily PRN Rx By: Nini Wolf; Dispense: 30 Days ; #:180 Tablet; Refill: 0;For: Generalized anxiety disorder with panic attacks; LISA = N; Verified Transmission to [facility] 1448; Last Updated By: [employer]; 06/02/2020 8:33:11 AM Nausea in adult Start: Ondansetron 4 MG Oral Tablet Disintegrating; TAKE 1 TABLET 3 times daily PRN nausea Rx By: Nini Wolf; Dispense: 0 Days ; #:30 Tablet; Refill: 0;For: Nausea in adult; LISA = N; Verified Transmission to [facility] 1448; Last Updated By: [employer]; 06/02/2020 8:39:25 AM Restless legs syndrome Start: rOPINIRole HCl - 0.5 MG Oral Tablet; TAKE 1 TABLET Bedtime Rx By: Nini Wolf; Dispense: 30 Days ; #:30 Tablet; Refill: 0;For: Restless legs syndrome; LISA = N; Verified Transmission to [facility] 1448; Last Updated By: [employer]; 06/02/2020 8:38:03 AM Patient Discussion/Summary F/U 2 WEEKS Provider Impressions WE DISCUSSED MOST COMMON SIDE EFFECTS OF PRESCRIBED MEDICATIONS. INDICATIONS, RISK, COMPLICATIONS, AND ALTERNATIVES OF MEDICATION/THERAPEUTICS WERE EXPLAINED AND DISCUSSED. PLEASE MONITOR CLOSELY FOR ANY UNTOWARD SIDE EFFECTS OR COMPLICATIONS OF MEDICATIONS. PATIENT IS STRONGLY ADVISED TO BE COMPLIANT WITH RECOMMENDATIONS. QUESTIONS AND CONCERNS WERE ADDRESSED. INSTRUCTED TO CALL, RETURN SOONER, OR GO TO THE ER, IF SYMPTOMS PERSIST OR WORSEN. THEY VOICED UNDERSTANDING AND DENIES FURTHER QUESTIONS AT THIS TIME. DO TO TECHNICAL DIFFICULTIES WITH THE [employer], THIS VIRTUAL VISIT WAS FINISHED VIA TELEPHONE CALL TIME CODE 1. PREPARATION FOR PATIENT'S VISIT (REVIEWING CHART, CURRENT MEDICAL RECORDS, OUTSIDE HEALTH PROVIDER RECORDS, PREVIOUS HISTORY, EXAM, TEST, PROCEDURE, AND MEDICATIONS) 2. FACE TO FACE ENCOUNTER OBTAINING HISTORY FROM THE PATIENT/FAMILY/CAREGIVER S; PERFORMING EVALUATION AND EXAMINATION; ORDERING TESTS OR PROCEDURES; REFERRING AND COMMUNICATING WITH OTHER HEALTHCARE PROVIDERS; COUNSELING AND EDUCATION OF THE PATIENT/FAMILY/CAREGIVER S; INDEPENDENTLY INTERPRETING RESULTS (TESTS, LABS, PROCEDURES, IMAGING) AND COMMUNICATING AND EXPLAINING RESULTS TO THE PATIENT/FAMILY/CAREGIVER S 3. COORDINATION OF CARE; PREPARING AND PRINTING DISCHARGE INSTRUCTIONS AND ANY EDUCATIONAL MATERIAL FOR THE PATIENT/FAMILY/CAREGIVER S. DOCUMENTING CLINICAL INFORMATION IN THE ELECTRONIC MEDICAL RECORD 4. REVIEWING OARRS NEEDED MDM 1) COMPLEXITY: MORE THAN 1 STABLE CHRONIC CONDITION ADDRESSED OR 1 CHRONIC CONDITION ADDRESSED THAT POSES A THREAT TO LIFE OR BODILY FUNCTION 2)DATA: TESTS INTERPRETED AND OR ORDERED, TOOK INDEPENDENT HISTORY OR RECORDS REVIEWED 3)RISK: SEVERE RISK DUE TO NATURE OF MEDICAL CONDITIONS/COMORBIDITY OR MEDICATIONS ORDERED OR SURGICAL OR PROCEDURE REFERRAL Chief Complaint An interactive audio and video telecommunication system which permits real time communications between the patient (at the originating site) and provider (at the distant site) was utilized to provide this telehealth service. Verbal consent was requested and obtained from LYLE FLYNN on this date, 06/02/2020 10:00 AM , for a telehealth visit. VIRTUAL; 3 MO F/U-MED REFILL GABAPENTIN. SHE SAID THAT SHE HAD SEEN BEHAVIORAL DOCTOR WHO INCREASED HER GABAPENTIN TO 600MG TID. History of Present IllnessVIRTUAL APPOINTMENT BEING PERFORMED DUE TO COVID-19 (CORONAVIRUS) Presents today for [facility] ER F/U. SHE WAS SEEN ON 05/25/20 FOR AN INTENTIONAL DRUG OVER DOSE. SHE WAS DRINKING ALCOHOL AND TOOK 60 400 MG GABAPENTIN. SHE WAS TRANSFERRED TO IN PATIENT FACILITY. SHE WAS RECENTLY IN [facility] INPATIENT PSYCH FACILITY ON 05/09/20. modifying factors consists of [facility] BUT UNABLE TO SEE A PROVIDER UNTIL AFTER SHE FOLLOW WITH THEM FOR 2-3 MONTHS. associated symptoms consist of DEPRESSION AND ANXIETY REMAINS BUT SHE DENIES SUICIDAL IDEATION. NAUSEA WITH LATUDA prior treatment consists of medication LATUDA AND EFFEXOR 37.5 MG HEP C - APPT WITH DR. HOLLIDAY ON 06/06/20 RLS- STOP GABAPENTIN AND WILL START REQUIP 0.5 MG Review of Systems Constitutional: not feeling poorly, no fever, no recent weight gain, no recent weight loss (more content not included)... Normal [facility] Office Visit (Internal Medic ine)on 05-17-2020 Follow-up visit Diagnoses/Problems Assessed Suicidal ideation (V62.84) (R45.851) Generalized anxiety disorder with panic attacks (300.02,300.01) (F41.1,F41.0) Bipolar depression (296.50) (F31.9) Alcohol use (V49.89) (Z72.89) Restless legs syndrome (333.94) (G25.81) Orders Generalized anxiety disorder with panic attacks Start: busPIRone HCl - 10 MG Oral Tablet; TAKE 1 TABLET 3 times daily PRN Rx By: Nini Wolf; Dispense: 90 Days ; #:270 Tablet; Refill: 0; For: Generalized anxiety disorder with panic attacks; LISA = N; Verified Transmission to [facility]42; Last Updated By: [employer]; 05/17/2020 1:30:14 PM Patient Discussion/Summary F/U BEFORE ON 06/02/20 Provider Impressions WE DISCUSSED IN DETAIL THAT SHE NEEDS TO AVOID ALCOHOL WITH HER RX MEDICATIONS. WE DISCUSSED MOST COMMON SIDE EFFECTS OF PRESCRIBED MEDICATIONS. INDICATIONS, RISK, COMPLICATIONS, AND ALTERNATIVES OF MEDICATION/THERAPEUTICS WERE EXPLAINED AND DISCUSSED. PLEASE MONITOR CLOSELY FOR ANY UNTOWARD SIDE EFFECTS OR COMPLICATIONS OF MEDICATIONS. PATIENT IS STRONGLY ADVISED TO BE COMPLIANT WITH RECOMMENDATIONS. QUESTIONS AND CONCERNS WERE ADDRESSED. INSTRUCTED TO CALL, RETURN SOONER, OR GO TO THE ER, IF SYMPTOMS PERSIST OR WORSEN. THEY VOICED UNDERSTANDING AND DENIES FURTHER QUESTIONS AT THIS TIME. TIME CODE 1. PREPARATION FOR PATIENT'S VISIT (REVIEWING CHART, CURRENT MEDICAL RECORDS, OUTSIDE HEALTH PROVIDER RECORDS, PREVIOUS HISTORY, EXAM, TEST, PROCEDURE, AND MEDICATIONS) 2. FACE TO FACE ENCOUNTER OBTAINING HISTORY FROM THE PATIENT/FAMILY/CAREGIVER S; PERFORMING EVALUATION AND EXAMINATION; ORDERING TESTS OR PROCEDURES; REFERRING AND COMMUNICATING WITH OTHER HEALTHCARE PROVIDERS; COUNSELING AND EDUCATION OF THE PATIENT/FAMILY/CAREGIVER S; INDEPENDENTLY INTERPRETING RESULTS (TESTS, LABS, PROCEDURES, IMAGING) AND COMMUNICATING AND EXPLAINING RESULTS TO THE PATIENT/FAMILY/CAREGIVER S 3. COORDINATION OF CARE; PREPARING AND PRINTING DISCHARGE INSTRUCTIONS AND ANY EDUCATIONAL MATERIAL FOR THE PATIENT/FAMILY/CAREGIVER S. DOCUMENTING CLINICAL INFORMATION IN THE ELECTRONIC MEDICAL RECORD 4. REVIEWING OARRS NEEDED MDM 1) COMPLEXITY: MORE THAN 1 STABLE CHRONIC CONDITION ADDRESSED 2)DATA: TESTS INTERPRETED AND OR ORDERED, TOOK INDEPENDENT HISTORY OR RECORDS REVIEWED 3)RISK: MODERATE RISK DUE TO NATURE OF MEDICAL CONDITIONS/COMORBIDITY OR MEDICATIONS ORDERED OR SURGICAL OR PROCEDURE REFERRAL Chief Complaint An interactive audio and video telecommunication system which permits real time communications between the patient (at the originating site) and provider (at the distant site) was utilized to provide this telehealth service. Verbal consent was requested and obtained from LYLE FLYNN on this date, 05/17/2020 08:40 AM , for a telehealth visit. VIRTUAL VISIT- ER FOLLOW UP ANXIETY. History of Present IllnessVIRTUAL APPOINTMENT BEING PERFORMED DUE TO COVID-19 (CORONAVIRUS) Presents today for [facility] F/U. SHE WAS SEEN AT THE [facility] IN [place] ON 05/09/20 FOR SUICIDAL IDEATION AND WAS KEPT OVER NIGHT FOR OBSERVATION. SHE WAS STILL SUICIDAL WITH A PLAN TO TAKE A BOTTLE OF PILLS ON 05/10/20 SO SHE WAS TRANSFERRED TO [facility] FOR AN IN PATIENT STAY FROM 05/10/20 - 05/14/20. SEVERAL MED CHANGES APPLIED, INCLUDING HER GABAPENTIN WHICH WAS CHANGED FROM 400 MG QID, TO 600 MG TID. SHE WAS SEEING NEL CRUZ APPLICATION DEVELOPMENT PROJECT MANAGER OUT OF [facility]. SHE LAST SEEN HER ON 04/14/20, BUT SHE DOES NOT WANT TO RETURN TO HER. SHE STATES THEY DO NOT GET ALONG . [facility] AND WILL BE ABLE TO SHE E THE DOCTOR THERE, BUT THERE IS A WAIT TO SEE THEM. C/O INCREASED ANXIETY AND REQUESTING SOMETHING TO HELP NEEDED. modifying factors consists of DENIES CURRENT SUICIDAL IDEATION. SHE DENIES ANY ALCOHOL USAGE FOR THE PAST WEEK. associated symptoms consist of DENIES DEPRESSION OR MOOD SWINGS prior treatment consists of medication LATUDA, PROPRANOLOL Review of Systems Constitutional: not feeling poorly, no fever, no recent weight gain, no recent weight loss and no chills. Eyes: no blurred vision, no diplopia and no eyesight problems. ENT: no hearing loss, no tinnitus, no earache, no sore throat, no hoarseness and no swollen glands in the neck. Cardiovascular: no chest pain, no tightness or heavy pressure, no shortness of breath, no palpitations and no lower extremity edema. Respiratory: no cough, not coughing up sputum and no wheezing that is consistent with asthma. Gastrointestinal: no change in bowel habits, no diarrhea, no constipation, no bloody stools, no nausea, no vomiting, no abdominal pain, no signs and symptoms of ulcer disease, no nataliia colored stools and no intolerance to fatty foods. Genitourinary: no urinary frequency, no dysuria, no burning sensation during urination and no hematuria. Musculoskeletal: no arthralgias, no joint stiffness, no muscle weakness, no back pain and no difficulty walking. Skin: no rashes, no change in sk (more content not included)... Normal [facility] CORONAVIRUS 2019 BY PCRon SARS-CoV-2 (COVID-19) RNA MOISES+probe Ql (Unsp spec) Not detected Normal Not Detected [facility] Comment on above: Result Comment: . This assay is designed to detect the N, ORF1ab and/or S genes of SARS-CoV-2 via nucleic acid amplification. A Negative (NOT DETECTED) result does not preclude 2019-nCoV infection since the adequacy of sample collection and/or low viral burden may result in presence of viral nucleic acids below the clinical sensitivity of this test method. Negative (NOT DETECTED) result should not be used as the sole basis for treatment or other patient management decisions. Rather negative results should be combined with clinical observations, patient history, and epidemiological information to make patient management decisions. Fact sheet for providers: https://www.fda.gov/media/745200/download Fact sheet for patients: https://www.fda.gov/media/867235/download This test has received FDA Emergency Use Authorization (EUA) and has been verified by [facility] ([facility]). This test is only authorized for the duration of time that circumstances exist to justify the authorization of the emergency use of in vitro diagnostic tests for the detection of SARS-CoV-2 virus and/or diagnosis of COVID-19 infection under section 564(b)(1) of the Act, 21 U.S.C. 360bbb-3(b)(1), unless the authorization is terminated or revoked sooner. [facility] is certified under CLIA-88 as qualified to perform high complexity testing. Testing is performed in the [facility] laboratories located at [id number] [place] [address]. Performed By: #### C OV19 #### [facility] [address] [address] [place] [id number] Covid 19 Resultson 1 SARS-CoV-2 (COVID-19) RNA MOISES+probe Ql (Unsp spec) NEGATIVE COVID-19 Test Coronaviruses are common world-wide and are the cause of many common colds. SARS-COV2 is a new coronavirus that began circulating worldwide in 2019 so we are calling it COVID-19. It has been estimated that four out of five patients with COVID-19 will recover at home without the need for medical attention. Symptoms of COVID-19 include cough, fever, shortness of breath, loss of taste or smell and other flu-like symptoms including chills, sore muscles, sore throat, and headache. Severe illness is more common in older people and people with other health problems such as high blood pressure, obesity, and immune system problems. If the test is positive, you have COVID-19. You will be contacted by the ordering physicians office and instructed to remain on home isolation, in accordance with CDC guidelines. You may also be contacted by the [facility] to see if any of your close contacts may have been exposed to the virus and need to quarantine. If the test is negative, you likely do not have COVID-19 at this time, but you still may have a different illness that can spread to other people (like Influenza, or the Flu) and could still be at risk for getting COVID-19. We recommend that you stay away from other people to limit the spread of illness until your symptoms are improving and you are fever-free for 24 hours without the use of fever lowering medications such as acetaminophen or ibuprofen. No test is 100% accurate so if you are still concerned you may have COVID-19, talk to your doctor about the need to continue to stay away from others. Medicines Acetaminophen (Tylenol and others) is generally safe. Anti-inflammatory medications, such as Ibuprofen (Advil or Motrin) or Naproxen (Aleve) can also be used. Diwn-peb-wkvnotr cough and cold medicines can be used according to the instructions on the package. Some hvju-uyy-skdufvk medicines also contain acetaminophen. Make sure you are not taking more than your recommended dose For those not hospitalized, there is no specific treatment available for this illness. Antibiotics do not treat Coronaviruses. Follow-Up Follow up with your doctor by scheduling a virtual visit or consider follow-up at one of our urgent care fever clinics. If you are having difficulty breathing, or are very weak and having difficulty standing, this is a medical emergency. Call 911 or have someone take you to the nearest emergency room immediately. If possible, wear a facemask. Additional guidance from the CDC for patients who tested POSITIVE for COVID-19 How to isolate: Isolate yourself in a specific room at home and limit your contact with others. Use a separate bathroom from other members of the household, when possible. Leave home only to get essential medical care. Do not go to work, school or public areas. Avoid using public transportation, ride-sharing, or taxis. Restrict contact with pets and other animals. If you must care for your pet or be around animals while you are sick, wash your hands before and after your interaction and wear a facemask. Make sure that shared spaces in the home have good airflow, such as by an air conditioner or an opened window, weather permitting. Personal Hygiene Procedures: Wear a face mask when in the same room as other people or pets. If a face mask interferes with your breathing, others should wear a mask when sharing space with you. Frequent hand-washing: wash your hands with soap and water for at least 20 seconds. If soap and water are not available, use alcohol-based hand c t tech. Avoid touching your eyes, nose, and mouth with unwashed hands. Household Hygiene Procedures: Avoid sharing personal household items such as dishes, glassware, cups, eating utensils, towels or bedding with other people or pets in your home. After use, these items should be washed with soap and hot water. Disinfect all high-touch surfaces every day with antibacterial cleaning solutions such as Lysol wipes, bleach, cleansers, etc. High-touch surfaces include tabletops, doorknobs, bathroom fixtures, toilets, phones, keyboards, tablets and bedside tables. Immediately clean any surfaces that may have blood, poop or body fluids on them, using antibacterial cleaning solutions such as Lysol wipes, bleach, cleansers, etc. If clothing or bedding come into contact with blood, poop or body fluids, they should be washed immediately. Follow the directions on the laundry detergent and clothing labels but hot water is recommended when possible. Stopping home isolation precautions: If possible, consult your doctor before stopping home isolation precautions. According to the CDC, you can discontinue home isolation precautions when you have met both of these criteria: Your fever and respiratory symptoms have been gone for 24 hours without the use of any medicines like ibuprofen (Motrin) (more content not included)... [facility] CORONAVIRUS 2019 BY PCRon DATE OF SYMPTOM ONSET [[id number]]? [id number] [facility] Comment on above: Performed By: #### C OV19 #### [facility] [address] [place] [id number] Lab Specimen Source Nasal, Nasopharyngeal [facility] Comment on above: Performed By: #### C OV19 #### [facility] [address] [place] [address] Provider Note - ED v2on 03-15 Provider Note - ED v2 Provider Note - ED v2: Chart Review HISTORY OF PRESENTING ILLNESS LYLE is a 30 year old Female and was seen by me at 04-Apr-2020 12:48 for a chief complaint of cold symptoms. The historian is the patient. Additional Details: Patient presents with 4-day history of cold symptoms. She endorses sneezing, cough, sinus congestion, drainage, and headaches. She denies fever, chills, chest pain, shortness of breath, body aches, fatigue, nausea, vomiting, diarrhea, loss of sense of taste/smell. She took navarro's and her inhaler for her symptoms. Triage Information: Most recent Vital Sign Value Date PAST MEDICAL HISTORY ATTESTATION: I have reviewed and confirmed nurse's/medic's notes for patient's medications, allergies, and medical, surgical, family and social history ALLERGIES/INTOLERANCES: Allergy Allergen: codeine Type: Drug Reaction: Rash HEALTH HISTORY: No documented data. OUTPATIENT MEDICATIONS: Home Medications Review Status for Reconciliation: Complete Med Status: Patient Currently Takes Medications Drug Name: gabapentin Instructions: 400 milligram(s) orally 4 times a day Drug Name: Latuda 40 mg oral tablet Instructions: 1 tab(s) orally once a day Drug Name: Vistaril 50 mg oral capsule Instructions: 1 cap(s) orally 4 times a day, As Needed Drug Name: propranolol Instructions: orally once a day Drug Name: Ativan 0.5 mg oral tablet Instructions: 1 tab(s) orally 3 times a day, As Needed Drug Name: budesonide 32 mcg/inh nasal spray Instructions: 1 spray(s) intranasally once a day Drug Name: fluticasone 50 mcg/inh nasal spray Instructions: 1 spray(s) in each nostril once a day SIGNIFICANT EVENTS: Other Description:SMOKER Additional Notes:1/2 A PACK A DAY Past Medical History Description:ANXIETY Description:BI POLAR Past Surgical History Description:NO SURGICAL HISTORY THIS YEAR Additional Notes:03/2019 Description:TOOTH EXTRACTION Social/Behavioral Description:depression [employer]: Is : no Is : no Order Test: no REVIEW OF SYSTEMS CONSTITUTIONAL: Negative for: chills, diaphoresis, fever and malaise ENMT Ears: Negative for: hearing disturbance Nose: POSITIVE for: congestion, discharge and sneezing Throat/Neck: POSITIVE for: throat pain CARDIOVASCULAR: Negative for: chest pain RESPIRATORY: POSITIVE for: cough and wheezing (resolving with inhaler use) Negative for: dyspnea GASTROINTESTINAL: Negative for: diarrhea, nausea and vomiting; MUSCULOSKELETAL: Negative for: pain NEUROLOGICAL: POSITIVE for: headache; All other systems reviewed and are negative RESULTS/VITAL SIGNS VITAL SIGNS: T PRBP SpO2O2(LPM) %FiO2 Method 04-Apr-2020 12:27:[id number] PHYSICAL EXAM CONSTITUTIONAL: Appearance: well appearing Development: well developed Distress: no apparent Manner: appropriate for situation Mentation: awake and alert Mood: appropriate Nourishment: well HENMT: Head Examination: atraumatic Face: no signs of abnormality EYES: Bilteral Eyes: clear and PERRL Left Conjunctiva: clear Right Conjunctiva: clear CARDIOVASCULAR: Cardiac Rhythm: regular Cardiac Rate: normal RESPIRATORY: Respiratory Distress: no respiratory distress Breath Sounds: normal breath sounds Rales: no rales Wheezes: no wheezes Rhonchi: no rhonchi NEUROLOGICAL: Level of Consciousness: alert and follows commands Memory: memory/cognition intact Speech: clear Gait and Weight Bearing: normal SKIN: Skin normal color for race, warm, dry and intact. No evidence of trauma. PSYCHIATRIC: Alert and oriented to person, place, time/situation. normal mood and affect. No apparent risk to self or others. MEDICAL DECISION MAKING/ED COURSE MDM/ED COURSE: Differential Diagnosis: (URI, COVID, sinusitis) Discussed Findings with: patient Data Reviewed: vital signs Awaiting: lab results Treatment Plan: Discussed supportive measures, and symptom management. Discussed etiology of more routine viral infection versus COVID infection. Ordered bromfed. Swabbed for COVID, advised pt turnaround time is about 24 hours, advised self-isolation until results come back. Advised pt to continue monitoring symptoms. Discussed s/s of blood clots, s/s of respiratory distress, and advised f/u if patient develops these s/s or if current s/s increase/worsen. Patient verbalized understanding. The pt's clinical presentation is otherwise unremarkable at this time. Based on exam and clinical findings the pt is stable for discharge with instructions to follow up with primary care or seek emergency medical attention for worsening symptoms or any new concerns. CLINICAL IMPRESSION Diagnosis/Annotation: ED Dx Name:URI (upper respiratory infection) Code:J06.9 Disposition: discharged Type: home ATTESTATION CRITICAL CARE TIME Is this a (more content not included)... Normal [facility] Provider Note - ED v2on Provider Note - ED v2 Provider Note - ED v2: Chart Review: HISTORY OF PRESENTING ILLNESS LYLE is a 30 year old Female and was seen by me at 22-Mar-2020 14:27 for a chief complaint of dental pain/injury. The historian is the patient. Additional Details: Patient presents with concern for dental pain s/p dental extraction. Pt states she had two teeth removed approximately 1 week ago. She endorses persistent pain to the teeth and jaw. She endorses bruising on her cheeks, and swelling. She states she was given a couple of days of Onarga and ibuprofen 600, she was also given a prescription for amoxicillin. She states she is out of the Onarga, and has been taking ibuprofen regularly and the amoxicillin as ordered. She states she tried to get into the dentist but was told she couldn't get in until next week. She states she is concerned about dry socket. She denies fever, chills, difficulty swallowing, bleeding in the mouth, purulent drainage in the mouth, nausea, and vomiting. She states she is currently smoking, and has used ice packs with some relief of the pain. Triage Information: Most recent Vital Sign Value Date PAST MEDICAL HISTORY ATTESTATION: I have reviewed and confirmed nurse's/medic's notes for patient's medications, allergies, and medical, surgical, family and social history ALLERGIES/INTOLERANCES: Allergy Allergen: codeine Type: Drug Reaction: Rash HEALTH HISTORY: No documented data. OUTPATIENT MEDICATIONS: Home Medications Review Status for Reconciliation: Complete Med Status: Patient Currently Takes Medications Drug Name: gabapentin Instructions: 400 milligram(s) orally 4 times a day Drug Name: Abilify 20 mg oral tablet Instructions: 1 tab(s) orally once a day SIGNIFICANT EVENTS: Other Description:SMOKER Additional Notes:1/2 A PACK A DAY Past Medical History Description:ANXIETY Description:BI POLAR Past Surgical History Description:NO SURGICAL HISTORY THIS YEAR Additional Notes:03/2019 Description:TOOTH EXTRACTION Social/Behavioral Description:depression [employer]: Is : no Is : no REVIEW OF SYSTEMS CONSTITUTIONAL: Negative for: chills and fever ENMT Mouth/Teeth: POSITIVE for: tooth trauma (bilateral tooth extraction) Negative for: gum bleeding and mouth lesions Throat/Neck: Negative for: dysphagia, hoarseness and throat pain CARDIOVASCULAR: Negative for: chest pain RESPIRATORY: Negative for: cough, dyspnea and wheezing GASTROINTESTINAL: Negative for: nausea and vomiting; All other systems reviewed and are negative RESULTS/VITAL SIGNS VITAL SIGNS: T PRBP SpO2O2(LPM) %FiO2 Method -Mar-2020 13:54:[id number] 99 PHYSICAL EXAM CONSTITUTIONAL: Appearance: well appearing Development: well developed Distress: no apparent Manner: appropriate for situation Mentation: awake and alert Mood: appropriate Nourishment: well HENMT: Head Examination: atraumatic and SWELLING (bilateral cheeks, no bruising, no erythema noted) Face: no signs of abnormality Ear: - BILATERAL TM's CLEAR Teeth: (teeth 4 and 13 sockets healing, with healthy granulation tissue noted, no dry socket noted, no abscess noted) Throat: normal pharynx EYES: Bilteral Eyes: clear and PERRL CARDIOVASCULAR: Cardiac Rhythm: regular Cardiac Rate: normal RESPIRATORY: Respiratory Distress: no respiratory distress Breath Sounds: normal breath sounds Rales: no rales Wheezes: no wheezes Rhonchi: no rhonchi NEUROLOGICAL: Level of Consciousness: alert and follows commands Memory: memory/cognition intact Speech: clear Gait and Weight Bearing: normal SKIN: Skin normal color for race, warm, dry and intact. No evidence of trauma. MEDICAL DECISION MAKING/ED COURSE MDM/ED COURSE: Differential Diagnosis: (dental abscess, dry socket, delayed wound healing) Discussed Findings with: patient Data Reviewed: old records and vital signs Treatment Plan: Advised pt that I see no indication of dry socket. Advised her that her dental extractions appear to be healing well and I see no signs of infection. Advised pt to continue taking her pain medications and antibiotics as ordered. Discussed the normal sequence of wound healing after dental extraction. Discussed s/s of infection, and advised her to schedule an appointment with her dentist for further recommendations. Pt verbalized understanding. The pt's clinical presentation is otherwise unremarkable at this time. Based on exam and clinical findings the pt is stable for discharge with instructions to follow up with primary care or seek emergency medical attention for worsening symptoms or any new concerns. CLINICAL IMPRESSION Diagnosis/Annotation: ED Dx Name:Pain, dental Code:K08.89 Disposition: discharged Type: home ATTESTATION CRITICAL CARE TIME Is this a critically ill patient: no Electronic S (more content not included)... Normal [facility] Office Visit (Internal Medic ine)on 03-15-2020 Follow-up visit Diagnoses/Problems Assessed Bipolar depression (296.50) (F31.9) Generalized anxiety disorder with panic attacks (300.02,300.01) (F41.1,F41.0) Orders Bipolar depression Start: ARIPiprazole 10 MG Oral Tablet (Abilify); TAKE 1 TABLET DAILY Rx By: Nini Wolf; Dispense: 90 Days ; #:90 Tablet; Refill: 0;For: Bipolar depression; LISA = N; Verified Transmission to [facility]; Last Updated By: [employer]oSharePlow; 03/15/2020 8:37:14 AM Start: LORazepam 0.5 MG Oral Tablet; TAKE 1 TABLET Twice daily PRN anxiety Rx By: Nini Wolf; Dispense: 30 Days ; #:60 Tablet; Refill: 0;For: Bipolar depression; LISA = N; [facility]; Msg to Pharmacy: OARRS REVIEWED. VOID SCRIPT 30 DAYS AFTER WRITTEN DATE; Last Updated By: SystemVijay; 03/15/2020 8:37:12 AM Patient Discussion/Summary F/U BEFORE FAX 2 WORK EXCUSE/LETTER TO [phone] Provider Impressions SHE IS REQUESTING A LETTER THAT STATES SHE SUFFERS FROM ANXIETY AND A WORK EXCUSE FOR YESTERDAY AND TODAY. SHE IS REFUSING A SOONER F/U APPT AT THIS TIME. I HAVE REVIEWED THE OARRS, WHICH WAS APPROPRIATE. I HAVE EVALUATED THE RISKS OF ABUSE, ADDICTION, DIVERSION, AND DEPENDENCE. PRESCRIBED MEDICATION SEEMS APPROPRIATE FOR DOCUMENTED DIAGNOSIS. WE DISCUSSED MOST COMMON SIDE EFFECTS OF PRESCRIBED MEDICATIONS. INDICATIONS, RISK, COMPLICATIONS, AND ALTERNATIVES OF MEDICATION/THERAPEUTICS WERE EXPLAINED AND DISCUSSED. PLEASE MONITOR CLOSELY FOR ANY UNTOWARD SIDE EFFECTS OR COMPLICATIONS OF MEDICATIONS. QUESTIONS AND CONCERNS WERE ADDRESSED. INSTRUCTED TO CALL OR RETURN SOONER IF SYMPTOMS PERSIST OR WORSEN. THEY VOICED UNDERSTANDING AND DENIES FURTHER QUESTIONS AT THIS TIME. TIME CODE 1. PREPARATION FOR PATIENT'S VISIT (REVIEWING CHART, CURRENT MEDICAL RECORDS, OUTSIDE HEALTH PROVIDER RECORDS, PREVIOUS HISTORY, EXAM, TEST, PROCEDURE, AND MEDICATIONS) 2. FACE TO FACE ENCOUNTER OBTAINING HISTORY FROM THE PATIENT/FAMILY/CAREGIVER S; PERFORMING EVALUATION AND EXAMINATION; ORDERING TESTS OR PROCEDURES; REFERRING AND COMMUNICATING WITH OTHER HEALTHCARE PROVIDERS; COUNSELING AND EDUCATION OF THE PATIENT/FAMILY/CAREGIVER S; INDEPENDENTLY INTERPRETING RESULTS (TESTS, LABS, PROCEDURES, IMAGING) AND COMMUNICATING AND EXPLAINING RESULTS TO THE PATIENT/FAMILY/CAREGIVER S 3. COORDINATION OF CARE; PREPARING AND PRINTING DISCHARGE INSTRUCTIONS AND ANY EDUCATIONAL MATERIAL FOR THE PATIENT/FAMILY/CAREGIVER S. DOCUMENTING CLINICAL INFORMATION IN THE ELECTRONIC MEDICAL RECORD 4. REVIEWING OARRS NEEDED Chief Complaint An interactive audio and video telecommunication system which permits real time communications between the patient (at the originating site) and provider (at the distant site) was utilized to provide this telehealth service. Verbal consent was requested and obtained from LYLE LEO on this date, 03/15/2020 08:20 AM , for a telehealth visit. VIRTUAL/C/O PANIC ATTACKS/STATES SHE QUIT TAKING HER MEDICATION. History of Present Illness I have personally reviewed the OARRS report for LYLE FLYNN. I have considered the risks of abuse, dependence, addiction and diversion. Is the patient prescribed a combination of a benzodiazepine and opioid? No. Last urine drug screening date/ordered today: 12/23/2019 Date of the last Controlled Substance Agreement: 12/23/2019 VIRTUAL APPOINTMENT BEING PERFORMED DUE TO COVID-19 (CORONAVIRUS) Presents today for F/U [facility] ER VISIT ON 03/11/20 AND [facility] ER ON 03/13/20 BOTH FOR PANIC ATTACK. SHE IS C/O INCREASED ANXIETY X 2 WEEKS modifying factors consists of SHE HAS AN APPT WITH PSYCH NEL CRUZ NP ON 03/31/20. SHE STOPPED HER ABILIFY ABOUT 1 MONTH AGO BECAUSE SHE THOUGHT SHE DID NOT NEED IT ANYMORE. associated symptoms consist of SHE HAS BEE UNABLE TO WORK R/T PANIC ATTACKS. NO CP OR SOB. DENIES SUICIDAL IDEATION prior treatment consists of medication KLONOPIN PRN Review of Systems Constitutional: not feeling poorly, no fever, no recent weight gain, no recent weight loss and no chills. Eyes: no blurred vision, no diplopia and no eyesight problems. ENT: no hearing loss, no tinnitus, no earache, no sore throat, no hoarseness and no swollen glands in the neck. Cardiovascular: no chest pain, no tightness or heavy pressure, no shortness of breath, no palpitations and no lower extremity edema. Respiratory: no cough, not coughing up sputum and no wheezing that is consistent with asthma. Gastrointestinal: no change in bowel habits, no diarrhea, no constipation, no bloody stools, no nausea, no vomiting, no abdominal pain, no signs and symptoms of ulcer disease, no nataliia colored stools and no intolerance to fatty foods. Genitourinary: no urinary frequency, no dysuria, no burning sensation during urination and no hematuria. Musculoskeletal: no arthralgias, no joint stiffness, no muscle weakness, no back pain and no difficulty walking. Skin: no rashes, no change in skin color and pigmentation, no skin lesions and no skin lumps. (more content not included)... Normal [facility] ACUTE TOXICOLOGY PANEL, MACARENA Allen 03-14-2020 Acetaminophen [Mass/Vol] ug/mL Normal 10.0 - 30.0 [facility] Comment on above: Performed By: #### D RUBL #### [address] [address] Ethanol [Mass/Vol] 214 mg/dL Abnormal [facility] Comment on above: Result Comment: FOR MEDICAL USE ONLY. . REF VALUES <10 Performed By: #### D RUBL #### [address] [address] SALICYLATE <3 Normal 4 - 20 [facility] Comment on above: Performed By: #### D RUBL #### [address] [address] Acetaminophen [Mass/Vol] <10.0 See Below [facility] Work Phone: Comment on above: Reference Range: 10. 0 - 30.0 Ordering Provider: Briseida GONZALEZ [address] Ethanol [Mass/Vol] 214 mg/dL Abnormal [facility] Work Phone: Comment on above: FOR MEDICAL USE ONLY . .REF VALUES <10 Ordering Provider: Briseida GONZALEZ [address] Salicylates [Mass/Vol] mg/dL 4 - 20 [facility] Work Phone: Comment on above: Ordering Provider: Briseida GONZALEZ [address] ALCOHOLon 03-14-2020 Ethanol [Mass/Vol] 93 mg/dL Abnormal [facility] Comment on above: Result Comment: FOR MEDICAL USE ONLY. . REF VALUES <10 Performed By: #### C OV19 #### [facility] [address] [place] [address] Alcohol, Serumon 03-14-2020 Ethanol [Mass/Vol] 93 mg/dL Abnormal [facility] Work Phone: Comment on above: FOR MEDICAL USE ONLY . .REF VALUES <10 Ordering Provider: Briseida GONZALEZ [address] BASIC METABOLIC PANELon Anion gap [Moles/Vol] 15 mmol/L Normal 10 - 20 [facility] Comment on above: Performed By: #### B MP #### [address] [address] Calcium [Mass/Vol] 9.3 mg/dL Normal 8.6 - 10.3 [facility] Comment on above: Performed By: #### B MP #### [address] [address] Chloride [Moles/Vol] 108 mmol/L High 98 - 107 [facility] Comment on above: Performed By: #### B MP #### [address] [address] Creatinine [Mass/Vol] 0.56 mg/dL Normal 0.50 - 1.05 [facility] Comment on above: Performed By: #### B MP #### [address] [address] GFR- AM. >60 Normal >60 [facility] Comment on above: Result Comment: CALC ULATIONS OF ESTIMATED GFR ARE PERFORMED USING THE MDRD STUDY EQUATION FOR THE IDMS-TRACEABLE CREATININE METHODS. CLIN CHEM 2007;53:766-72 Performed By: #### B MP #### [address] [address] GFR-NON AM. >60 Normal >60 [facility] Comment on above: Performed By: #### B MP #### [address] [address] Glucose [Mass/Vol] 111 mg/dL High 74 - 99 [facility] Comment on above: Performed By: #### B MP #### [address] [address] HCO3 (Bld) [Moles/Vol] 21 mmol/L Normal 21 - 32 [facility] Comment on above: Performed By: #### B MP #### [address] [address] Potassium [Moles/Vol] 3.9 mmol/L Normal 3.5 - 5.3 [facility] Comment on above: Performed By: #### B MP #### [address] [address] Sodium [Moles/Vol] 140 mmol/L Normal 136 - 145 [facility] Comment on above: Performed By: #### B MP #### [address] [address] Urea nitrogen [Mass/Vol] 5 mg/dL Low 6 - 23 [facility] Comment on above: Performed By: #### B MP #### [address] [address] CBC AND DIFFERENTIALon 03-14 Basophils (Bld) [#/Vol] 0.10 10*3/uL Normal 0.00 - 0.10 [facility] Comment on above: Performed By: #### C BCDF #### [address] [address] Eosinophils (Bld) [#/Vol] 0.10 10*3/uL Normal 0.00 - 0.70 [facility] Comment on above: Performed By: #### C BCDF #### [address] [address] Lymphocytes (Bld) [#/Vol] 2.80 10*3/uL Normal 1.20 - 4.80 [facility] Comment on above: Performed By: #### C BCDF #### [address] [address] Monocytes (Bld) [#/Vol] 0.50 10*3/uL Normal 0.10 - 1.00 [facility] Comment on above: Performed By: #### C BCDF #### [address] [address] Neutrophils (Bld) [#/Vol] 6.30 10*3/uL Normal 1.20 - 7.70 [facility] Comment on above: Result Comment: Perc ent differential counts (%) should be interpreted in the context of the absolute cell counts (cells/L). Performed By: #### C BCDF #### [address] [address] NUCLEATED RBC 0.2 /100 WBC Normal [facility] Comment on above: Performed By: #### C BCDF #### [address] [address] Platelets (Bld) [#/Vol] 241 10*3/uL Normal 150 - 450 [facility] Comment on above: Performed By: #### C BCDF #### [address] [address] RBC 5.23 x10E12/L High 4.00 - 5.20 [facility] Comment on above: Performed By: #### C BCDF #### [address] [address] WBC (Bld) [#/Vol] 9.6 10*3/uL Normal 4.4 - 11.3 [facility] Comment on above: Performed By: #### C BCDF #### [address] [address] Complete Blood Count + Diffe lashelllidiaon 03-14-2020 Basophils (Bld) [#/Vol] 0.10 {x10E9/L} See Below [facility] Work Phone: Comment on above: Reference Range: 0.0 0 - 0.10 Ordering Provider: Briseida GONZALEZ [address] Basophils/100 WBC (Bld) 0.6 % Normal 0.0 - 2.0 [facility] Work Phone: Comment on above: Ordering Provider: Briseida GONZALEZ [address] Performed By: #### C BCDF #### [address] [address] Eosinophils (Bld) [#/Vol] 0.10 {x10E9/L} See Below [facility] Work Phone: Comment on above: Reference Range: 0.0 0 - 0.70 Ordering Provider: Briseida GONZALEZ [address] Eosinophils/100 WBC (Bld) 0.6 % Normal 0.0 - 6.0 [facility] Work Phone: Comment on above: Ordering Provider: Briseida GONZALEZ [address] Performed By: #### C BCDF #### [address] [address] Erythrocyte distribution width (RBC) [Ratio] 13.1 % Normal 11.5 - 14.5 [facility] Work Phone: Comment on above: Reference Range: 11. 5 - 14.5 Ordering Provider: Briseida GONZALEZ [address] Performed By: #### C BCDF #### [address] [address] Hematocrit (Bld) [Volume fraction] 48.3 % High 36.0 - 46.0 [facility] Work Phone: Comment on above: Reference Range: 36. 0 - 46.0 Ordering Provider: Briseida GONZALEZ [address] Performed By: #### C BCDF #### [address] [address] Hemoglobin (Bld) [Mass/Vol] 16.2 g/dL High 12.0 - 16.0 [facility] Work Phone: Comment on above: Reference Range: 12. 0 - 16.0 Ordering Provider: Briseida GONZALEZ [address] Performed By: #### C BCDF #### [address] [address] Lymphocytes (Bld) [#/Vol] 2.80 {x10E9/L} See Below [facility] Work Phone: Comment on above: Reference Range: 1.2 0 - 4.80 Ordering Provider: Briseida GONZALEZ [address] Lymphocytes/100 WBC (Bld) 28.6 % Normal 13.0 - 44.0 [facility] Work Phone: Comment on above: Reference Range: 13. 0 - 44.0 Ordering Provider: Briseida GONZALEZ [address] Performed By: #### C BCDF #### [address] [address] MCHC (RBC) [Mass/Vol] 33.6 g/dL Normal 32.0 - 36.0 [facility] Work Phone: Comment on above: Reference Range: 32. 0 - 36.0 Ordering Provider: Briseida GONZALEZ [address] Performed By: #### C BCDF #### [address] [address] MCV (RBC) [Entitic vol] 92 fL Normal 80 - 100 [facility] Work Phone: Comment on above: Ordering Provider: Briseida GONZALEZ [address] Performed By: #### C BCDF #### [address] [address] Monocytes (Bld) [#/Vol] 0.50 {x10E9/L} See Below [facility] Work Phone: Comment on above: Reference Range: 0.1 0 - 1.00 Ordering Provider: Briseida GONZALEZ [address] Monocytes/100 WBC (Bld) 5.0 % Normal 2.0 - 10.0 [facility] Work Phone: Comment on above: Ordering Provider: Briseida MARROQUINO [address] Performed By: #### C BCDF #### [address] [address] Neutrophils (Bld) [#/Vol] 6.30 {x10E9/L} See Below [facility] Work Phone: Comment on above: Reference Range: 1.2 0 - 7.70 Percent differential counts (%) should be interpreted in the context of the absolute cell counts (cells/L). Ordering Provider: Briseida GONZALEZ [address] Neutrophils/100 WBC (Bld) 65.2 % Normal 40.0 - 80.0 [facility] Work Phone: Comment on above: Reference Range: 40. 0 - 80.0 Ordering Provider: Briseida MARROQUINO [address] Performed By: #### C BCDF #### [address] [address] Platelets (Bld) [#/Vol] 241 {x10E9/L} 150 - 450 [facility] Work Phone: Comment on above: Ordering Provider: Briseida MARROQUINO [address] RBC (Bld) [#/Vol] 5.23 {x10E12/L} above high threshold See Below [facility] Work Phone: Comment on above: Reference Range: 4.0 0 - 5.20 Ordering Provider: Briseida MARROQUINMadeleine [address] WBC (Bld) [#/Vol] 0.2 {/100_WBC} [facility] Work Phone: Comment on above: Ordering Provider: Briseida GONZALEZ [address] WBC (Bld) [#/Vol] 9.6 {x10E9/L} 4.4 - 11.3 [facility] Internal Medicine Work Phone: Comment on above: Ordering Provider: Briseida MARROQUINMadeleine 17265 HEPATIC FUNCTION PANELon Albumin [Mass/Vol] 4.2 g/dL Normal 3.4 - 5.0 [facility] Comment on above: Performed By: #### H EPFP #### [address] [address] ALP [Catalytic activity/Vol] 83 U/L Normal 33 - 110 [facility] Comment on above: Performed By: #### H EPFP #### [address] [address] ALT [Catalytic activity/Vol] 69 U/L High 7 - 45 [facility] Comment on above: Result Comment: Tran ents treated with Sulfasalazine may generate falsely decreased results for ALT. Performed By: #### H EPFP #### [address] [address] AST [Catalytic activity/Vol] 70 U/L High 9 - 39 [facility] Comment on above: Performed By: #### H EPFP #### [address] [address] Bilirubin [Mass/Vol] 0.4 mg/dL Normal 0.0 - 1.2 [facility] Comment on above: Performed By: #### H EPFP #### [address] [address] Bilirubin.indirect [Mass/Vol] 0.1 mg/dL Normal 0.0 - 0.3 [facility] Comment on above: Performed By: #### H EPFP #### [id number] [place] [address] Protein [Mass/Vol] 7.1 g/dL Normal 6.4 - 8.2 [facility] Comment on above: Performed By: #### H EPFP #### [id number] [place] [address] Hepatic Function Panelon Albumin BCP dye [Mass/Vol] 4.2 g/dL 3.4 - 5.0 [facility] Work Phone: Comment on above: Ordering Provider: Briseida WILKERSONCUCO LUISCARLEE [address] ALP [Catalytic activity/Vol] 83 U/L 33 - 110 [facility] Work Phone: Comment on above: Ordering Provider: Briseida WILKERSONCUCO LUISCARLEE 66943 ALT With P-5'-P [Catalytic activity/Vol] 69 U/L above high threshold 7 - 45 [facility] Work Phone: Comment on above: Patients treated wit h Sulfasalazine may generate falsely decreased results for ALT. Ordering Provider: Briseida WILKERSONCUCO REHANSERENE 27092 AST With P-5'-P [Catalytic activity/Vol] 70 U/L above high threshold 9 - 39 [facility] Work Phone: Comment on above: Ordering Provider: Briseida SMITHJUSTICEO [address]83 Bilirubin [Mass/Vol] 0.4 mg/dL 0.0 - 1.2 [facility] Internal Medicine Work Phone: Comment on above: Ordering Provider: Briseida MARROQUINO [address] Bilirubin.direct [Mass/Vol] 0.1 mg/dL 0.0 - 0.3 [facility] Internal Medicine Work Phone: Comment on above: Ordering Provider: Briseida MARROQUINO 395[address] Protein [Mass/Vol] 7.1 g/dL 6.4 - 8.2 [facility] Work Phone: Comment on above: Ordering Provider: Briseida RHEACUCO LOPEZMadeleine 97163 Metabolic Panelon 03-14-2020 Anion gap [Moles/Vol] 15 mmol/L 10 - 20 [facility] Internal Medicine Work Phone: Comment on above: Ordering Provider: Briseida GONZALEZ [address] Calcium [Mass/Vol] 9.3 mg/dL 8.6 - 10.3 [facility] Internal Medicine Work Phone: Comment on above: Ordering Provider: Briseida GONZALEZ 03883 Chloride [Moles/Vol] 108 mmol/L above high threshold 98 - 107 [facility] Medicine Work Phone: Comment on above: Ordering Provider: Briseida GONZALEZ 94788 CO2 [Moles/Vol] 21 mmol/L 21 - 32 [facility] Internal Medicine Work Phone: Comment on above: Ordering Provider: Briseida GONZALEZ 33436 Creatinine [Mass/Vol] 0.56 mg/dL See Below [facility] Medicine Work Phone: Comment on above: Reference Range: 0.5 0 - 1.05 Ordering Provider: Briseida GONZALEZ [address] Glucose [Mass/Vol] 111 mg/dL above high threshold 74 - 99 [facility] Medicine Work Phone: Comment on above: Ordering Provider: Briseida GONZALEZ 61423 Potassium [Moles/Vol] 3.9 mmol/L 3.5 - 5.3 [facility] Medicine Work Phone: Comment on above: Ordering Provider: Briseida GONZALEZ 45179 Sodium [Moles/Vol] 140 mmol/L 136 - 145 [facility] Medicine Work Phone: Comment on above: Ordering Provider: Briseida GONZALEZ 83739 Urea nitrogen [Mass/Vol] 5 mg/dL below low threshold 6 - 23 [facility] Medicine Work Phone: Comment on above: Ordering Provider: Briseida GONZALEZ 224[address] Otheron 03-14-2020 >60 >60 [facility] Medicine Work Phone: Comment on above: CALCULATIONS OF JEREL MATED GFR ARE PERFORMED USING THE MDRD STUDY EQUATION FOR THE IDMS-TRACEABLE CREATININE METHODS. CLIN CHEM 2007;[id number] Ordering Provider: Briseida GONZALEZ 63861 DRUG SCREEN,URINEon 03-13-19 21 AMPHETAMINE SCREEN,U Negative Normal NEGATIVE [facility] Comment on above: Result Comment: CUTO FF LEVEL: 500 NG/ML Cross-reactivity has been reported with high concentrations of the following drugs: buproprion, chloroquine, chlorpromazine, ephedrine, mephentermine, fenfluramine, phentermine, phenylpropanolamine, pseudoephedrine, and propranolol. Performed By: #### D RUG3 #### [place] [address] BARBITURATES SCREEN,U Negative Normal NEGATIVE [facility] Comment on above: Result Comment: CUTO FF LEVEL: 200 NG/ML Performed By: #### D RUG3 #### [place] [address] BENZODIAZEPINES SCREEN,U Negative Normal NEGATIVE [facility] Comment on above: Result Comment: CUTO FF LEVEL: 200 NG/ML Performed By: #### D RUG3 #### [place] [address] CANNABINOIDS SCREEN,U Negative Normal NEGATIVE [facility] Comment on above: Result Comment: CUTO FF LEVEL: 50 NG/ML Performed By: #### D RUG3 #### [place] [address] COCAINE METABOLITE SCREEN,U Negative Normal NEGATIVE [facility] Comment on above: Result Comment: CUTO FF LEVEL: 150 NG/ML Performed By: #### D RUG3 #### [place] [address] DRUG SCREEN COMMENT SEE BELOW Normal [facility] Comment on above: Result Comment: Drug screen results are presumptive and should not be used to assess compliance with prescribed medication. Contact the performing [facility] laboratory to add-on definitive confirmatory testing if clinically indicated. . Toxicology screening results are reported qualitatively. The concentration must be greater than or equal to the cutoff to be reported as positive. The concentration at which the screening test can detect an individual drug or metabolite varies. The absence of expected drug(s) and/or drug metabolite(s) may indicate non-compliance, inappropriate timing of specimen collection relative to drug administration, poor drug absorption, diluted/adulterated urine, or limitations of testing. For medical purposes only; not valid for forensic use. . Interpretive questions should be directed to the laboratory medical directors. Performed By: #### D RUG3 #### [place] [address] FENTANYL SCREEN,URINE Negative Normal NEGATIVE [facility] Comment on above: Result Comment: CUTO FF LEVEL: 1 NG/ML The performance characteristics of this test have been determined by the individual laboratory site where testing is performed. This test has not been cleared or approved by the FDA; however, the FDA has determined that such clearance is not necessary. Performed By: #### D RUG3 #### [place] [address] METHADONE SCREEN,U Negative Normal NEGATIVE [facility] Comment on above: Result Comment: CUTO FF LEVEL: 150 NG/ML The metabolite D-styru-kbrmwiksobbpme (LAAM) is not detected by this method in concentrations that would be found in the urine of patients on LAAM therapy. Performed By: #### D RUG3 #### [place] [address] OPIATES SCREEN,U Negative Normal NEGATIVE [facility] Comment on above: Result Comment: CUTO FF LEVEL: 300 NG/ML The opiate screen does not detect fentanyl, meperidine, or tramadol. Oxycodone is not consistently detected (refer to Oxycodone Screen, Urine result). Performed By: #### D RUG3 #### [place] [address] OXYCODONE SCREEN,U Negative Normal NEGATIVE [facility] Comment on above: Result Comment: CUTO FF LEVEL: 100 NG/ML This test will accurately detect both oxycodone and oxymorphone. Performed By: #### D RUG3 #### [place] [address] PCP SCREEN,U Negative Normal NEGATIVE [facility] Comment on above: Result Comment: CUTO FF LEVEL: 25 NG/ML Cross-reactivity has been reported with dextromethorphan. Performed By: #### D RUG3 #### [address] [place] [address] HCG,URINEon 03-13-2020 Beta HCG ( test) Ql (U) Negative Normal Negative [facility] Comment on above: Performed By: #### H CGU #### [address] [place] [address] Otheron 03-13-2020 Amphetamines Screen Ql (U) Negative NEGATIVE [facility] Internal Medicine Work Phone: Comment on above: CUTOFF LEVEL: 500 NG /ML Cross-reactivity has been reported with high concentrations of the following drugs: buproprion, chloroquine, chlorpromazine, ephedrine, mephentermine, fenfluramine, phentermine, phenylpropanolamine, pseudoephedrine, and propranolol. Ordering Provider: Briseida GONZALEZ [address]6769 Benzoylecgonine Screen Ql (U) Negative NEGATIVE [facility] Internal Medicine Work Phone: Comment on above: CUTOFF LEVEL: 150 NG /ML Ordering Provider: Briseida GONZALEZ [address] Methadone Screen Ql (U) Negative NEGATIVE [facility] Medicine Work Phone: Comment on above: CUTOFF LEVEL: 150 NG /ML The metabolite Q-ugugy-pboweyqconbbsv (LAAM) is not detected by this method in concentrations that would be found in the urine of patients on LAAM therapy. Ordering Provider: Briseida GONZALEZ [address]2494 Opiates Screen Ql (U) Negative NEGATIVE [facility] Internal Medicine Work Phone: Comment on above: CUTOFF LEVEL: 300 NG /ML The opiate screen does not detect fentanyl, meperidine, or tramadol. Oxycodone is not consistently detected (refer to Oxycodone Screen, Urine result). Ordering Provider: Briseida GONZALEZ [address] Oxycodone+Oxymorphone Screen Ql (U) Negative NEGATIVE [facility] Internal Medicine Work Phone: Comment on above: CUTOFF LEVEL: 100 NG /ML This test will accurately detect both oxycodone and oxymorphone. Ordering Provider: Briseida GONZALEZ [address] SEE BELOW -[facility] Internal Medicine Work Phone: Comment on above: Drug screen results are presumptive and should not be used to assess compliance with prescribed medication. Contact the performing [facility] laboratory to add-on definitive confirmatory testing if clinically indicated. .Toxicology screening results are reported qualitatively. The concentration must be greater than or equal to the cutoff to be reported as positive. The concentration at which the screening test can detect an individual drug or metabolite varies. The absence of expected drug(s) and/or drug metabolite(s) may indicate non-compliance, inappropriate timing of specimen collection relative to drug administration, poor drug absorption, diluted/adulterated urine, or limitations of testing. For medical purposes only; not valid for forensic use. .Interpretive questions should be directed to the laboratory medical directors. Ordering Provider: Briseida GONZALEZ [address] Provider Note - ED v2on 02-13 Provider Note - ED v2 Provider Note - ED v2: Chart Review ED NOTES ED NOTES: ====HPI==== Patient is a 30-year-old female who presents to the emergency department with a chief complaint of anxiety. She states that she has been quite anxious recently. She states that her boyfriend is in the midst of leaving her. She states that she has 4 children with him and does not know how he could do this. He she has recently been to 2 different emergency departments in the past 2 days for the same issue. She presents today here at [facility] as her anxiety continues to worsen. She denied any suicidal or homicidal ideation but she did have a pill bottle of clonazepam in front of her and states that she wished she could take all of these to make it go away. She states that she took 6 clonazepam yesterday to try and relieve her symptoms. She denies any fever or chills. No nausea or vomiting. No diarrhea. No chest pain or shortness of breath. She denies any prior hospitalizations to any psychiatric facilities. She has had twisted tea this evening, she states that she has had 2 Social HX: Yes TOBACCO Yes ETOH 4 CHILDREN ====Review of Systems==== 10 point system review is negative except for those specifically mentioned in history of present illness ====Physical Exam==== VITALS: Constitutional/General: Alert and oriented x3, well appearing, nontoxic, and in NAD. Head: Normocephalic and atraumatic. Eyes: PERRL, EOMI, conjunctive normal, sclera nonicteric, subconjunctival layer is pink. Mouth: Oropharynx clear, handling secretions, no trismus, no asymmetry of the posterior oropharynx or uvular edema Neck: Supple, full ROM, non tender to palpation in the midline, no stridor, no crepitus, no meningeal signs. Trachea at midline. Respiratory: Lungs clear to auscultation bilaterally, no wheezes, rales, or rhonchi, not in respiratory distress. Cardiovascular: Regular rate, regular rhythm, no murmurs, gallops, or rubs, 2+ distal pulses. Chest: normal chest wall movement GI: Abdomen soft, nontender, nondistended, + BS, no organomegaly, no palpable masses, no rebound, guarding, or rigidity. Musculoskeletal: Moves all extremities x4, warm and well perfused, no clubbing, cyanosis, or edema, cap refill <3 seconds Integument: Skin warm and dry, no rashes. Lymphatic: No lymphadenopathy noted. Neurologic: GCS 15, no focal deficits, symmetric strength 5/5 in the upper and lower extremities bilaterally. Psychiatric: Normal affect. ====ED Course and Medical Decision Making==== Differential diagnosis includes, but is not limited to: #### See MDM section for review of findings & plan of care. Portions of this note were dictated by speech recognition. An attempt at proof reading was made to minimize errors. 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 Please call if questions.. HISTORY OF PRESENTING ILLNESS LYLE is a 30 year old Female and was seen by me at 13-Mar-2020 21:13 for a chief complaint of anxiety (pt to ED via EMS for acute anxiety, states has not taken meds lately, denies suicidal ideation, very tearful)(1). Triage Information: Most recent Vital Sign Value Date Temp (F): 98.3 03-13-2020 21:08 Temp (C): 36.8 03-13-2020 21:08 Heart Rate (beats/min): 105 03-13-2020 21:08 Respirations (breaths/min): 20 01-31-2021 21:08 SpO2 (%): 96 03-13-2020 21:08 BP Systolic (mm Hg): 121 03-13-2020 21:08 BP Diastolic (mm Hg): 66 03-13-2020 21:08 PAST MEDICAL HISTORY ATTESTATION: I have reviewed and confirmed nurse's/medic's notes for patient's medications, allergies, and medical, surgical, family and social history ALLERGIES/INTOLERANCES: Allergy Allergen: codeine Type: Drug Reaction: Rash HEALTH HISTORY: No documented data. OUTPATIENT MEDICATIONS: Home Medications Review Status for Reconciliation: N/A Med Status: Patient Currently Takes Medications Drug Name: gabapentin Instructions: 400 milligram(s) orally 4 times a day Drug Name: Abilify 20 mg oral tablet Instructions: 1 tab(s) orally once a day Drug Name: ondansetron 4 mg oral tablet, disintegrating Instructions: 1 tab(s) orally every 6 hours SIGNIFICANT EVENTS: Other Description:SMOKER Additional Notes:1/2 A PACK A DAY Past Medical History Description:ANXIETY Description:BI POLAR Past Surgical History Description:NO SURGICAL HISTORY THIS YEAR Additional Notes:03/2019 Social/Behavioral Description:depression 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 She will need this redrawn before she can be medically cleared. She has been medically cleared otherwise. Patient case transitioned to attending physician, Dr. Pierre CLINICAL IMPRESSION Diagnosis/Annotation: ED Dx Name:Anxiety Code:F41.9 Name:Alcohol intoxication Code:F10.929 Disp (more content not included)... Normal [facility] Risk Screen - Adult Emergenc yon 03-13-2020 Risk Screen - Adult Emergency Preferred Language: Preferred Language: Preferred Language for Discussing Health Care (patient/designee)Bogdan rodriguez Advanced Directives: Advance Directive/DNRno Family Violence Adult: Abuse Screen: Are you or have you been threatened or abused physically, emotionally, or sexually by anyoneno Learning Assessment (Patient): Learning Assessment (Patient): Patient is Able to be Assessed for Learningyes Factors Influencing Readiness to Learnacuteness of illness Factors that Impact Ability to Learnnone Devices/Methods Used to Communicatenone Learning Preferencesindividual instruction Cultural Considerationsnone Developmental Considerationsnone Confucianism Considerationsnone Learning Assessment (Other Learner): Learning Assessment (Other Learner): Other learner availableno Pressure Injury/TB/Substance: Pressure Injury: Pressure Injury Present on Admissionno Do you have a coughno Substance Use Current or Former Historynever: e-Cigarette/Vaping, Street Drugs YES: Cigarette/Tobacco, Alcohol Smoking Statuslight tobacco smoker (<10 cigs or cigar/pipe equivalent) Tobacco Cessation Education (provide if tobacco use within the last 12 mos)not applicable Alcohol Useoccasionally Admission Risk Screen: Significant IndicatorsComplete CAGE: CAGE: Is this an injured patient at a Trauma Center ([facility]/[facility]/[place] /[place]): no Electronic Signatures: Jeronimo Teixeira (RN) (Signed 13-Mar-2020 21:24) Authored: Preferred Language, Advanced Directives, Family Violence Adult, Learning Assessment (Patient), Learning Assessment (Other Learner), Pressure Injury/TB/Substance, Pressure Injury, CAGE Last Updated: 13-Mar-2020 21:24 by Jeronimo Teixeira (RN) [facility] Triage - EDon 03-13-2020 Triage - ED Quick Triage: Are You no Have You Given In The Last 6 Weeksno Are You Currently Breastfeedingno The patient and/or guardian verbally acknowledges placement for services into the following (when Urgent Care Service hours are operating):emergency department Chart Review: ARRIVAL INFORMATION Mode of Arrival: ambulance Agency Name: [facility] CHIEF COMPLAINT LYLE FLYNN is a Female patient with a chief complaint of anxiety (pt to ED via EMS for acute anxiety, states has not taken meds lately, denies suicidal ideation, very tearful). Triage Date/Time: 13-Mar-2020 21:08 Pain Rating (0-10): 0 = None Vital Signs: Temperature: 98.3F ( 36.8C) taken oral Blood Pressure: 121/66 Mean: Heart Rate: 105 Respiratory Rate: 20 Pulse Oximetry: 96% on room air, no respiratory support. Height: 5 feet 2.00 inches. 157.4 CM Weight: 188.4 pounds. Calculated 85.5 kg. (stated) Calculated BMI (kg/m2): 34.510 Calculated BSA (m2) 1.93 [place] Coma Scale: Best Eye Response: (E4) spontaneous Best Motor Response: (M6) obeys commands Best Verbal Response: (V5) oriented Cristi Score: 15 Cough lasting greater than 3 weeks: no Allergies: yes Mask applied: yes Patient has homicidal thoughts: no MAGDALENA: 4 Symptoms Are POSITIVE For: agitated. Symptoms Are Negative For: anorexia, confusion, depression, fatigue, hallucinations, suicidal thoughts and withdrawn. Risk Screens Suicide Risk Screen In the Past Month: Have you wished you were or wished you could go to sleep and not wake up no In the Past Month: Have you had any actual thoughts of killing yourself no In Your Lifetime: Have you ever done anything, started to do anything, or prepared to do anything to end your life no Horner Fall Scale Screening Has the patient fallen before (or is the patient in the ED as a result of a fall) has not had a fall Does the patient have an impaired gait does not have impaired gait Is the patient cognitively impaired not cognitively impaired Interventions: Horner Fall Interventions: LOW INTERVENTIONS: *patient oriented to surroundings and call system, * patient/family falls education completed and documented, *patients fall status communicated during bedside handoff, *whiteboard updated, *mode of toileting discussed with patient, *bed in low position with brakes locked, *call light in reach, * non-skid footwear TRAVEL HISTORY Travel History Coronavirus Screening: no exposure or symptoms PAIN Pain Scale Used: [place] Pain Rating (0-10): 0 = None Past Medical History: Past Medical History Reviewedyes Electronic Signatures: Jeronimo Teixeira (RN) (Signed 13-Mar-2020 21:23) Entered: Risk Screens, Pain, Chart Review, Scores, Past Medical History Authored: Quick Triage, Risk Screens, Pain, Chart Review, Scores, Past Medical History Last Updated: 13-Mar-2020 21:23 by Jeronimo Teixeira (LILY) Normal [facility] UA MICROSCOPICon 03-13-2020 RBC 1 /HPF Normal 0-5 [facility] Comment on above: Performed By: #### U AMIC #### [address] [address] WBC (U) [#/Vol] /uL Normal 0-5 [facility] Comment on above: Performed By: #### U AMIC #### [address] [address] URINALYSIS WITH CULTURE IF I NDICATEDon 03-13-2020 Appearance (U) CLEAR Normal CLEAR [facility] Comment on above: Performed By: #### C BCDF #### [address] [address] Bilirubin Ql (U) Negative Normal NEGATIVE [facility] Comment on above: Performed By: #### C BCDF #### [address] [address] Color (U) Colorless Normal STRAW,YELLOW [facility] Comment on above: Performed By: #### C BCDF #### [address] [address] Glucose Ql (U) Negative Normal NEGATIVE [facility] Comment on above: Performed By: #### C BCDF #### [address] [address] Hemoglobin Ql (U) SMALL(1+) Abnormal NEGATIVE [facility] Comment on above: Performed By: #### C BCDF #### [address] [address] Ketones Ql (U) Negative Normal NEGATIVE [facility] Comment on above: Performed By: #### C BCDF #### [address] [address] Leukocyte esterase Test strip Ql (U) Negative Normal NEGATIVE [facility] Comment on above: Performed By: #### C BCDF #### [address] [address] Nitrite Ql (U) Negative Normal NEGATIVE [facility] Comment on above: Performed By: #### C BCDF #### [address] [address] pH (U) 7.0 [pH] Normal 5.0 - 8.0 [facility] Comment on above: Performed By: #### C BCDF #### [address] [address] Protein Ql (U) Negative Normal NEGATIVE [facility] Comment on above: Performed By: #### C BCDF #### [address] [address] Specific gravity (U) [Rel density] 1.001 Low 1.005 - 1.035 [facility] Comment on above: Performed By: #### C BCDF #### [address] [address] Urobilinogen (U) [Mass/Vol] mg/dL Normal 0.0 - 1.9 [facility] Comment on above: Performed By: #### C BCDF #### [address] [address] Appearance (U) CLEAR CLEAR -[facility] Internal Medicine Work Phone: Comment on above: Ordering Provider: Briseida GONZALEZ [address] Color (U) Colorless See Below [facility] Medicine Work Phone: Comment on above: Reference Range: STR AW,YELLOW Ordering Provider: Briseida GONZALEZ [address] Glucose Ql (U) Negative NEGATIVE -[facility] Work Phone: Comment on above: Ordering Provider: Briseida GONZALEZ [address]79[address] Ketones Ql (U) Negative NEGATIVE -[facility] Work Phone: Comment on above: Ordering Provider: Briseida GONZALEZ [address] Leukocyte esterase Test strip Ql (U) Negative NEGATIVE [facility] Work Phone: Comment on above: Ordering Provider: Briseida GONZALEZ [address]27[address] pH (U) 7.0 [pH] 5.0 - 8.0 [facility] Work Phone: Comment on above: Ordering Provider: Briseida GONZALEZ [address] Protein (U) [Mass/Vol] Negative NEGATIVE [facility] Work Phone: Comment on above: Ordering Provider: Briseida GONZALEZ 250[address] RBC (U) [#/Vol] SMALL(1+) Abnormal NEGATIVE -[facility] Internal Medicine Work Phone: Comment on above: Ordering Provider: Briseida GONZALEZ [address] Specific gravity (U) [Rel density] 1.001 1 below low threshold See Below [facility] Internal Medicine Work Phone: Comment on above: Reference Range: 1.0 05 - 1.035 Ordering Provider: Briseida Gonzalez202 URINALYSIS WITH CULTURE IF INDICATED Negative NEGATIVE [facility] Work Phone: Comment on above: CUTOFF LEVEL: 1 NG/M L The performance characteristics of this test have been determined by the individual laboratory site where testing is performed. This test has not been cleared or approved by the FDA; however, the FDA has determined that such clearance is not necessary. Ordering Provider: Briseida GONZALEZ [id number] URINALYSIS WITH CULTURE IF INDICATED <2.0 0.0 - 1.9 [facility] Work Phone: Comment on above: Ordering Provider: Briseida Gonzalez202 Urinalysison 03-13-2020 Barbiturates Screen Ql (U) Negative NEGATIVE [facility] Work Phone: Comment on above: CUTOFF LEVEL: 200 NG /ML Ordering Provider: Briseida Gonzalez202 Benzodiazepines Ql (U) Negative NEGATIVE [facility] Work Phone: Comment on above: CUTOFF LEVEL: 200 NG /ML Ordering Provider: Briseida Gonzalez202 Cannabinoids Screen Ql (U) Negative NEGATIVE [facility] Work Phone: Comment on above: CUTOFF LEVEL: 50 NG/ ML Ordering Provider: Briseida Gonzalez202 Phencyclidine Ql (U) Negative NEGATIVE [facility] Work Phone: Comment on above: CUTOFF LEVEL: 25 NG/ ML Cross-reactivity has been reported with dextromethorphan. Ordering Provider: Briseida GONZALEZ [id number] Urinalysis, Microscopicon Urinalysis, Microscopic 1 {/HPF} 0-5 [facility] Work Phone: Comment on above: Ordering Provider: Briseida GONZALEZ [id number] Urinalysis, Microscopic <1 0-5 [facility] Work Phone: Comment on above: Ordering Provider: Briseida GONZALEZ [id number] Urine Teston 03-13 HCG ( test) Ql (U) Negative Negative -[facility] Work Phone: Comment on above: Ordering Provider: Briseida GONZALEZ [id number] Office Visit (Internal Medic ine)on 03-02-2020 Follow-up visit Diagnoses/Problems Assessed Hepatitis-C (070.70) (B19.20) Generalized anxiety disorder with panic attacks (300.02,300.01) (F41.1,F41.0) Bipolar depression (296.50) (F31.9) Restless legs syndrome (333.94) (G25.81) Iron deficiency (280.9) (E61.1) Orders Bipolar depression, Generalized anxiety disorder with panic attacks, Iron deficiency Comprehensive Metabolic Panel; Status:Active; Requested for:02Mar2020; Perform:Lab Services - Lab To Draw (Blood Test); Due:31May2020;Ordered; For:Bipolar depression, Generalized anxiety disorder with panic attacks, Iron deficiency; Ordered By:Nini Wolf; Hemoglobin A1C; Status:Active; Requested for:02Mar2020; Perform:Lab Services - Lab To Draw (Blood Test); Due:31May2020;Ordered; For:Bipolar depression, Generalized anxiety disorder with panic attacks, Iron deficiency; Ordered By:Nini Wolf; Iron + TIBC, Serum; Status:Active; Requested for:02Mar2020; Perform:Lab Services - Lab To Draw (Blood Test); Due:31May2020;Ordered; For:Bipolar depression, Generalized anxiety disorder with panic attacks, Iron deficiency; Ordered By:Nini Wolf; Lipid Panel; Status:Active; Requested for:02Mar2020; Perform:Lab Services - Lab To Draw (Blood Test); Due:31May2020;Ordered; For:Bipolar depression, Generalized anxiety disorder with panic attacks, Iron deficiency; Ordered By:Nini Wolf; TSH WITH REFLEX TO FREE T4 IF ABNORMAL; Status:Active; Requested for:02Mar2020; Perform:Lab Services - Lab To Draw (Blood Test); Due:31May2020;Ordered; For:Bipolar depression, Generalized anxiety disorder with panic attacks, Iron deficiency; Ordered By:Nini Wolf; Generalized anxiety disorder with panic attacks Renew: clonazePAM 0.5 MG Oral Tablet; TAKE 1 TABLET EVERY 12 HOURS NEEDED Rx By: Nini Wolf; Dispense: 30 Days ; #:60 Tablet; Refill: 0;For: Generalized anxiety disorder with panic attacks; LISA = N;Creating EPCS Digital Signature; Msg to Pharmacy: [facility] REVIEWED. VOID SCRIPT 30 DAYS AFTER WRITTEN DATE. Hepatitis-C Alcohol, Urine; Status:Active; Requested for:02Mar2020; Perform:Lab Services - Lab To Draw (Non-Blood Test); Due:31May2020; Last Updated By:Nini Wolf; 03/02/2020 1:13:24 PM;Ordered; For:Hepatitis-C; Ordered By:Nathan Barlow; Alpha Fetoprotein, Serum; Specimen Source:Blood (BLD); Status:Active; Requested for:02Mar2020; Perform:Lab Services - Lab To Draw (Blood Test); Due:31May2020; Last Updated By:Nini Wolf; 03/02/2020 1:13:24 PM;Ordered; For:Hepatitis-C; Ordered By:Nathan Barlow; Xyxqv-6-Bnendwbkgsb, Serum; Specimen Source:Blood (BLD); Status:Active; Requested for:02Mar2020; Perform:Lab Services - Lab To Draw (Blood Test); Due:31May2020; Last Updated By:Nini Wolf; 03/02/2020 1:13:24 PM;Ordered; For:Hepatitis-C; Ordered By:Nathan Barlow; Anti Nuclear Antibody (without TED Panel); Specimen Source:Blood (BLD); Status:Active; Requested for:02Mar2020; Perform:Lab Services - Lab To Draw (Blood Test); Due:31May2020; Last Updated By:Nini Wolf; 03/02/2020 1:13:24 PM;Ordered; For:Hepatitis-C; Ordered By:Nathan Barlow; Antimitochondrial Ab; Specimen Source:Blood (BLD); Status:Active; Requested for:02Mar2020; Perform:Lab Services - Lab To Draw (Blood Test); Due:31May2020; Last Updated By:Nini Wolf; 03/02/2020 1:13:24 PM;Ordered; For:Hepatitis-C; Ordered By:Nathan Barlow; Ceruloplasmin, Serum; Specimen Source:Blood (BLD); Status:Active; Requested for:02Mar2020; Perform:Lab Services - Lab To Draw (Blood Test); Due:31May2020; Last Updated By:Nini Wolf; 03/02/2020 1:13:24 PM;Ordered; For:Hepatitis-C; Ordered By:Nathan Barlow; Drug Screen, Urine With Reflex To Confirmation; Status:Active; Requested for:02Mar2020; Perform:Lab Services - Lab To Draw (Non-Blood Test); Due:31May2020; Last Updated By:Nini Wolf; 03/02/2020 1:13:24 PM;Ordered; For:Hepatitis-C; Ordered By:Nathan Barlow; HCV Fibrosure; Status:Active; Requested for:02Mar2020; Perform:Lab Services - Lab To Draw (Blood Test); Due:31May2020; Last Updated By:Nini Wolf; 03/02/2020 1:13:24 PM;Ordered; For:Hepatitis-C; Ordered By:Nathan Barlow; HCV PCR With Genotype Reflex; Specimen Source:Blood (BLD); Status:Active; Requested for:02Mar2020; Perform:Lab Services - Lab To Draw (Blood Test); Due:31May2020; Last Updated By:Nini Wolf; 03/02/2020 1:13:24 PM;Ordered; For:Hepatitis-C; Ordered By:Nathan Barlow; Hepatitis A Antibody, Total; Specimen Source:Blood (BLD); Status:Active; Requested for:02Mar2020; Perform:Lab Services - Lab To Draw (Blood Test); Due:31May2020; Last Updated By:Nini Wolf; 03/02/2020 1:13:24 PM;Ordered; For:Hepatitis-C; Ordered By:Nathan Barlow; Hepatitis B Core Antibody, Total; Specimen Source:Blood (BLD); Status:Active; Requested for:02Mar2020; Perform:Lab Services - Lab To Draw (Blood Test); Due:31May2020; Last Updated By:Nini Wolf; 03/02/2020 1:13:24 PM;Ordered; For:Hepatitis-C; Ordered By:Nathan Barlow; PT/INR; Status:Active; Requested for:02Mar2020; Perform:Lab Services - Lab To Draw (Blood Test); Due: (more content not included)... Normal [facility] CORONAVIRUS 2019 BY PCRon SARS-CoV-2 (COVID-19) RNA MOISES+probe Ql (Unsp spec) Not detected Normal Not Detected [facility] Comment on above: Result Comment: . This assay is designed to detect the N, ORF1ab and/or S genes of SARS-CoV-2 via nucleic acid amplification. A Negative (NOT DETECTED) result does not preclude 2019-nCoV infection since the adequacy of sample collection and/or low viral burden may result in presence of viral nucleic acids below the clinical sensitivity of this test method. Negative (NOT DETECTED) result should not be used as the sole basis for treatment or other patient management decisions. Rather negative results should be combined with clinical observations, patient history, and epidemiological information to make patient management decisions. Fact sheet for providers: https://www.fda.gov/media/754982/download Fact sheet for patients: https://www.fda.gov/media/886992/download This test has received FDA Emergency Use Authorization (EUA) and has been verified by [facility] ([facility]). This test is only authorized for the duration of time that circumstances exist to justify the authorization of the emergency use of in vitro diagnostic tests for the detection of SARS-CoV-2 virus and/or diagnosis of COVID-19 infection under section 564(b)(1) of the Act, 21 U.S.C. 360bbb-3(b)(1), unless the authorization is terminated or revoked sooner. [facility] is certified under CLIA-88 as qualified to perform high complexity testing. Testing is performed in the [facility] laboratories located at [address] [place] [address]. This is a corrected result. Previous value was PENDING, verified at 02/24/2020 10:55 Performed By: #### C OV19 #### [address] [place] [address] Covid 19 Resultson 1 SARS-CoV-2 (COVID-19) RNA MOISES+probe Ql (Unsp spec) NEGATIVE COVID-19 Test Coronaviruses are common world-wide and are the cause of many common colds. SARS-COV2 is a new coronavirus that began circulating worldwide in 2019 so we are calling it COVID-19. It has been estimated that four out of five patients with COVID-19 will recover at home without the need for medical attention. Symptoms of COVID-19 include cough, fever, shortness of breath, loss of taste or smell and other flu-like symptoms including chills, sore muscles, sore throat, and headache. Severe illness is more common in older people and people with other health problems such as high blood pressure, obesity, and immune system problems. If the test is positive, you have COVID-19. You will be contacted by the ordering physicians office and instructed to remain on home isolation, in accordance with CDC guidelines. You may also be contacted by the [facility] to see if any of your close contacts may have been exposed to the virus and need to quarantine. If the test is negative, you likely do not have COVID-19 at this time, but you still may have a different illness that can spread to other people (like Influenza, or the Flu) and could still be at risk for getting COVID-19. We recommend that you stay away from other people to limit the spread of illness until your symptoms are improving and you are fever-free for 24 hours without the use of fever lowering medications such as acetaminophen or ibuprofen. No test is 100% accurate so if you are still concerned you may have COVID-19, talk to your doctor about the need to continue to stay away from others. Medicines Acetaminophen (Tylenol and others) is generally safe. Anti-inflammatory medications, such as Ibuprofen (Advil or Motrin) or Naproxen (Aleve) can also be used. Kyve-aai-jqawuja cough and cold medicines can be used according to the instructions on the package. Some csju-lmr-osejjrz medicines also contain acetaminophen. Make sure you are not taking more than your recommended dose For those not hospitalized, there is no specific treatment available for this illness. Antibiotics do not treat Coronaviruses. Follow-Up Follow up with your doctor by scheduling a virtual visit or consider follow-up at one of our urgent care fever clinics. If you are having difficulty breathing, or are very weak and having difficulty standing, this is a medical emergency. Call 911 or have someone take you to the nearest emergency room immediately. If possible, wear a facemask. Additional guidance from the CDC for patients who tested POSITIVE for COVID-19 How to isolate: Isolate yourself in a specific room at home and limit your contact with others. Use a separate bathroom from other members of the household, when possible. Leave home only to get essential medical care. Do not go to work, school or public areas. Avoid using public transportation, ride-sharing, or taxis. Restrict contact with pets and other animals. If you must care for your pet or be around animals while you are sick, wash your hands before and after your interaction and wear a facemask. Make sure that shared spaces in the home have good airflow, such as by an air conditioner or an opened window, weather permitting. Personal Hygiene Procedures: Wear a face mask when in the same room as other people or pets. If a face mask interferes with your breathing, others should wear a mask when sharing space with you. Frequent hand-washing: wash your hands with soap and water for at least 20 seconds. If soap and water are not available, use alcohol-based hand c t tech. Avoid touching your eyes, nose, and mouth with unwashed hands. Household Hygiene Procedures: Avoid sharing personal household items such as dishes, glassware, cups, eating utensils, towels or bedding with other people or pets in your home. After use, these items should be washed with soap and hot water. Disinfect all high-touch surfaces every day with antibacterial cleaning solutions such as Lysol wipes, bleach, cleansers, etc. High-touch surfaces include tabletops, doorknobs, bathroom fixtures, toilets, phones, keyboards, tablets and bedside tables. Immediately clean any surfaces that may have blood, poop or body fluids on them, using antibacterial cleaning solutions such as Lysol wipes, bleach, cleansers, etc. If clothing or bedding come into contact with blood, poop or body fluids, they should be washed immediately. Follow the directions on the laundry detergent and clothing labels but hot water is recommended when possible. Stopping home isolation precautions: If possible, consult your doctor before stopping home isolation precautions. According to the CDC, you can discontinue home isolation precautions when you have met both of these criteria: Your fever and respiratory symptoms have been gone for 24 hours without the use of any medicines like ibuprofen (Motrin) (more content not included)... [facility] CORONAVIRUS 2019 BY PCRon DATE OF SYMPTOM ONSET [YYYYMMDD]? [id number] [facility] Comment on above: Performed By: #### C OV19 #### [facility] [address] [place] [address] Lab Specimen Source Nasal, Nasopharyngeal [facility] Comment on above: Performed By: #### C OV19 #### [facility] [address] [place] [address] Coronavirus 2019 RNA by PCR, Symptomaticon 02-23-2020 When did you start to experience these symptoms [Date and time] [PhenX] 20200221 1 [facility] Work Phone: Comment on above: Ordering Provider: Janny ZAMUDIOID [id number] Coronavirus 2019 RNA by PCR, Symptomatic NOT DETECTED See Below [facility] Work Phone: Comment on above: SOURCE: Nasal, Nasop haryngealReference Range: Not Detected.This assay is designed to detect the N, ORF1ab and/or S genes of SARS-CoV-2 via nucleic acid amplification. A Negative (NOT DETECTED) result does not preclude 2019-nCoV infection since the adequacy of sample collection and/or low viral burden may result in presence of viral nucleic acids below the clinical sensitivity of this test method. Negative (NOT DETECTED) result should not be used as the sole basis for treatment or other patient management decisions. Rather negative results should be combined with clinical observations, patient history, and epidemiological information to make patient management decisions.Fact sheet for providers: https://www.fda.gov/media/558214/downloadFact sheet for patients: https://www.fda.gov/media/869854/downloadThis test has received FDA Emergency Use Authorization (EUA) and has been verified by [facility] ([facility]). This test is only authorized for the duration of time that circumstances exist to justify the authorization of the emergency use of in vitro diagnostic tests for the detection of SARS-CoV-2 virus and/or diagnosis of COVID-19 infection under section 564(b)(1) of the Act, 21 U.S.C. 360bbb-3(b)(1), unless the authorization is terminated or revoked sooner. [facility] is certified under CLIA-88 as qualified to perform high complexity testing. Testing is performed in the [facility] laboratories located at [address] [place] [address].This is a corrected result. Previous value was PENDING, verified at 02/24/2020 10:55 Ordering Provider: Janny HALL [id number] Provider Note - ED v2on 02-11 Provider Note - ED v2 Provider Note - ED v2: Chart Review HISTORY OF PRESENTING ILLNESS LYLE is a 30 year old Female and was seen by me at 23-Feb-2020 15:56 for a chief complaint of nausea, vomiting, diarrhea. The historian is the patient. Additional Details: Patient presents with 3-day history of GI symptoms, and possible covid exposure. She endorses nausea, vomiting, chills, fatigue, and a headache. She denies sneezing, cough, sinus congestion, drainage, fever, chest pain, shortness of breath, body aches, loss of sense of taste/smell. She hasn't taken anything for her symptoms. She endorses decreased urination. Triage Information: Most recent Vital Sign Value Date PAST MEDICAL HISTORY ATTESTATION: I have reviewed and confirmed nurse's/medic's notes for patient's medications, allergies, and medical, surgical, family and social history ALLERGIES/INTOLERANCES: Allergy Allergen: codeine Type: Drug Reaction: Rash HEALTH HISTORY: No documented data. OUTPATIENT MEDICATIONS: Home Medications Review Status for Reconciliation: Complete Med Status: Patient Currently Takes Medications Drug Name: gabapentin Instructions: 400 milligram(s) orally 4 times a day Drug Name: Abilify 20 mg oral tablet Instructions: 1 tab(s) orally once a day Drug Name: ondansetron 4 mg oral tablet, disintegrating Instructions: 1 tab(s) orally every 6 hours SIGNIFICANT EVENTS: Other Description:SMOKER Additional Notes:2 A PACK A DAY Past Medical History Description:ANXIETY Description:BI POLAR Past Surgical History Description:NO SURGICAL HISTORY THIS YEAR Additional Notes:03/2019 Social/Behavioral Description:depression [employer]: Is : no Is : no REVIEW OF SYSTEMS CONSTITUTIONAL: POSITIVE for: chills and malaise Negative for: diaphoresis and fever ENMT Nose: Negative for: congestion and discharge Throat/Neck: Negative for: throat pain CARDIOVASCULAR: Negative for: chest pain RESPIRATORY: Negative for: cough and dyspnea GASTROINTESTINAL: POSITIVE for: nausea and vomiting; Negative for: abdominal pain, constipation and diarrhea; change in bowel habits, hematochezia, melena and stool incontinence GENITOURINARY: Negative for: urine output decreased MUSCULOSKELETAL: Negative for: pain NEUROLOGICAL: POSITIVE for: headache; All other systems reviewed and are negative RESULTS/VITAL SIGNS VITAL SIGNS: T PRBP SpO2O2(LPM) %FiO2 Method 23-Feb-2020 15:46:[id number] PHYSICAL EXAM CONSTITUTIONAL: Appearance: ILL APPEARING Development: well developed Distress: no apparent Manner: appropriate for situation Mentation: awake and alert Mood: appropriate Nourishment: well HENMT: Head Examination: atraumatic Face: no signs of abnormality Nose: normal inspection Mouth: normal mouth inspection EYES: Bilteral Eyes: clear and PERRL Left Conjunctiva: clear Right Conjunctiva: clear CARDIOVASCULAR: Cardiac Rhythm: regular Cardiac Rate: normal RESPIRATORY: Respiratory Distress: no respiratory distress Breath Sounds: normal breath sounds GASTROINTESTINAL: Abdominal Exam: soft and nondistended Masses: no mass on examination Bowel Sounds Detail: Bowel Sounds: INCREASED Bowel Sounds Hyperactive: DIFFUSE Abdominal Tenderness: non-tender Abdominal Guarding: no guarding Rebound: no rebound tenderness NEUROLOGICAL: Level of Consciousness: alert and follows commands Memory: memory/cognition intact SKIN: Skin normal color for race, warm, dry and intact. No evidence of trauma. PSYCHIATRIC: Alert and oriented to person, place, time/situation. normal mood and affect. No apparent risk to self or others. MEDICAL DECISION MAKING/ED COURSE MDM/ED COURSE: Differential Diagnosis: diarrhea, gastroenteritis and vomiting Discussed Findings with: patient Data Reviewed: vital signs Awaiting: lab results Treatment Plan: Provided rx for ondansetron. Advised increased fluids and rest. Advised pt she needs to increase her fluids and have a good amount light yellow clear urine. Advised electrolyte replacements and water. Discussed BRAT diet. Swabbed for COVID, discussed s/s to get emergency treatment. Advised f/u if s/s persist or worsen. Pt verbalized understanding. The pt's clinical presentation is otherwise unremarkable at this time. Based on exam and clinical findings the pt is stable for discharge with instructions to follow up with primary care or seek emergency medical attention for worsening symptoms or any new concerns. CLINICAL IMPRESSION Diagnosis/Annotation: ED Dx Name:Gastroenteritis, acute Code:K52.9 Disposition: discharged Type: home ATTESTATION CRITICAL CARE TIME Is this a critically ill patient: no Electronic Signatures for Addendum Section: Edwin Lujan (SIERRA Gastelum) (Signed Addendum 24-Feb-2020 09:39) PT WAS CALLED AND GIVEN A NEGAT (more content not included)... Normal [facility] Provider Note - ED v2on 01-11 Provider Note - ED v2 Provider Note - ED v2: Chart Review: HISTORY OF PRESENTING ILLNESS LYLE is a 30 year old Female and was seen by me at 27-Jan-2020 11:45 for a chief complaint of (Urinary symptoms). Other complaints include: Female presents for evaluation of dysuria. Patient reports several days of increased urinary frequency, mild suprapubic discomfort, and change in urine color. Patient denies fever, nausea, vomiting, or other constitutional signs and symptoms. Patient reports similar episodes in the past diagnosed as urinary tract infections. No other complaints.. Triage Information: Most recent Vital Sign Value Date PAST MEDICAL HISTORY ATTESTATION: I have reviewed and confirmed nurse's/medic's notes for patient's medications, allergies, and medical, surgical, family and social history ALLERGIES/INTOLERANCES: Allergy Allergen: codeine Type: Drug Reaction: Rash HEALTH HISTORY: No documented data. OUTPATIENT MEDICATIONS: Home Medications Review Status for Reconciliation: Complete Med Status: Patient Currently Takes Medications Drug Name: gabapentin Instructions: 400 milligram(s) orally 4 times a day Drug Name: Abilify 20 mg oral tablet Instructions: 1 tab(s) orally once a day Drug Name: KlonoPIN 0.5 mg oral tablet Instructions: 1 tab(s) orally 3 times a day, As Needed SIGNIFICANT EVENTS: Other Description:SMOKER Additional Notes:1/2 A PACK A DAY Past Medical History Description:ANXIETY Description:BI POLAR Past Surgical History Description:NO SURGICAL HISTORY THIS YEAR Additional Notes:03/2019 Social/Behavioral Description:depression [employer]: Is : no Is : no REVIEW OF SYSTEMS REVIEW OF SYSTEMS: Comments Review of Systems Constitutional: See HPI Gastrointestinal: See HPI Genitourinary: See HPI. Neurologic: Alert and oriented X4, No numbness, No tingling. All other systems are negative PHYSICAL EXAM CONSTITUTIONAL: Well appearing, well nourished, awake, alert, oriented to person, place, time/situation and in no apparent distress. EYES: Clear bilaterally, pupils equal, round and reactive to light. MUSCULOSKELETAL: Spine appears normal, range of motion is not limited, no muscle or joint tenderness. NEUROLOGICAL: Alert and oriented, no focal deficits, no motor or sensory deficits. SKIN: Skin normal color for race, warm, dry and intact. No evidence of trauma. MEDICAL DECISION MAKING/ED COURSE MDM/ED COURSE: Urinalysis with blood, leukocyte esterase, and nitrites consistent with UTI. Prescriptions for Bactrim and Pyridium. Urine sent for culture. Patient's clinical presentation is otherwise unremarkable at this time. Patient is discharged with instructions to follow-up with primary care or seek emergency medical attention for worsening symptoms or any new concerns. CLINICAL IMPRESSION Diagnosis/Annotation: ED Dx Name:UTI (urinary tract infection) Code:N39.0 Disposition: discharged Type: home ATTESTATION CRITICAL CARE TIME Is this a critically ill patient: no Electronic Signatures: Colette Howell (PAC) (Signed 27-Jan-2020 11:59) Authored: HPI, PMH, ROS, PE, MDM/ED Course, Clinical Impression, Attestation, Chart Review, Scores Last Updated: 27-Jan-2020 11:59 by Colette Howell (PAC) Normal [facility] URINE CULTURE,BACTERIALon URINE CULTURE,BACTERIAL PATIENT: LYLE FLYNN LOCATION: [facility] ([facility])#: [id number] : 89 AGE: SEX: F ORDERED BY: COLETTE HOWELL SOURCE: URINE COLLECTED: 01/27/20 11:53 ANTIBIOTICS AT TRELL.: RECEIVED : 01/28/20 00:35 SITE: R E S U L T S URINE CULTURE,BACTERIAL FINAL 01/30/20 00:28 ISOLATE1 : Escherichia coli >100,000 CFU/ML Organism E coli Antibiotic BP INTRP Ampicillin R Amox/Clavulanate S Ceftriaxone S Cefotaxime N/R Cefazolin S Ciprofloxacin S Nitrofurantoin S Gentamicin S Levofloxacin S Piperc/Tazobact S Trimeth/Sulfa S Tetracycline S S=SUSCEPTIBLE I=INTERMEDIATE R=RESISTANT SDD=SUSCEPTIBLE DOSE DEPENDENT NS=NONSUSCEPTIBLE X=REPORTED IN ERROR Normal [facility] Comment on above: Performed By: #### C [facility] #### [place] [address] Office Visit (Internal Medic ine)on 01-20-2020 Follow-up visit Diagnoses/Problems Assessed Headache (784.0) (R51.9) Patient Discussion/Summary F/U BEFORE FAX WORK EXCUSE TO [phone] Chief Complaint An interactive audio and video telecommunication system which permits real time communications between the patient (at the originating site) and provider (at the distant site) was utilized to provide this telehealth service. Verbal consent was requested and obtained from LYLE FLYNN on this date, 01/20/2020 12:40 PM , for a telehealth visit. VIRTUAL VISIT - C/O MIGRAINE ON SATURDAY WHICH LASTED FOR A FEW HOURS AND THEN RESOLVED. SHE CALLED OFF WORK THAT DAY WHEN MIGRAINE WAS SEVERE, AND NOW HER EMPLOYER IS REQUIRING CLEARANCE FROM PCP BEFORE THEY WILL ALLOW HER BACK TO WORK DUE TO COVID PANDEMIC. PATIENT DENIES ANY OTHER SYMPTOMS AND HAS NOT TRAVELED OR BEEN EXPOSED TO ANYONE THAT SHE IS AWARE WHOM HAS BEEN DX WITH COVID. History of Present IllnessVIRTUAL APPOINTMENT BEING PERFORMED DUE TO COVID-19 (CORONAVIRUS) Presents today for WORK EXCUSE R/T CALLING OFF ON SATURDAY R/T A HEADACHE. SHE STATES IT ONLY LASTED A COUPLE OF HOURS AND HAS NOT RETURNED. DENIES ANY OTHER SYMPTOMS. NO NEW COMPLAINTS Review of Systems Constitutional: not feeling poorly, no fever, no recent weight gain, no recent weight loss and no chills. Eyes: no blurred vision, no diplopia and no eyesight problems. ENT: no hearing loss, no tinnitus, no earache, no sore throat, no hoarseness and no swollen glands in the neck. Cardiovascular: no chest pain, no tightness or heavy pressure, no shortness of breath, no palpitations and no lower extremity edema. Respiratory: no cough, not coughing up sputum and no wheezing that is consistent with asthma. Gastrointestinal: no change in bowel habits, no diarrhea, no constipation, no bloody stools, no nausea, no vomiting, no abdominal pain, no signs and symptoms of ulcer disease, no nataliia colored stools and no intolerance to fatty foods. Genitourinary: no urinary frequency, no dysuria, no burning sensation during urination and no hematuria. Musculoskeletal: no arthralgias, no joint stiffness, no muscle weakness, no back pain and no difficulty walking. Skin: no rashes, no change in skin color and pigmentation, no skin lesions and no skin lumps. Neurological: no headaches, no dizziness, no seizures, no tingling, no numbness, no signs and symptoms of stroke and no limb weakness. Psychiatric: no confusion, no memory lapses or loss, no depression, no sleep disturbances, no anxiety and not suicidal. 10 SYSTEMS REVIEWED AND NEGATIVE, WHICH THE EXCEPTION OF HPI LISTED ABOVE Active Problems Problems Alcohol use (V49.89) (Z72.89) Bipolar depression (296.50) (F31.9) Cigarette smoker (305.1) (F17.210) Generalized anxiety disorder with panic attacks (300.02,300.01) (F41.1,F41.0) Hepatitis-C (070.70) (B19.20) Iron deficiency (280.9) (E61.1) Medication management (V58.69) (Z79.899) Obesity (278.00) (E66.9) Restless legs syndrome (333.94) (G25.81) Past Medical History Problems No pertinent past medical history (V49.89) (Z78.9) Surgical History Problems History of Cervical loop electrosurgical excision Family History Mother Family history of Anxiety and depression Father Family history of hypertension (V17.49) (Z82.49) Maternal Grandmother Family history of cerebrovascular accident (CVA) (V17.1) (Z82.3) Social History Problems Alcohol use (V49.89) (Z72.89) Cigarette smoker (305.1) (F17.210) Current every day smoker (305.1) (F17.200) History of heroin use (305.53) (Z87.898) 4 MO CLEAN Allergies Medication codeine Allergy; Rash; Tachycardia; Recorded By: Gisselle Whitt; 01/14/2019 9:02:07 AM SEROquel TABS Adverse Reaction; Swelling; Recorded By: Gisselle Whitt; 04/17/2019 1:35:08 PM Current Meds Medication NameInstruction Albuterol Sulfate HFA 108 (90 Base) MCG/ACT Inhalation Aerosol SolutionINHALE 2 PUFFS Every 6 hours PRN SOB/WHEEZING ARIPiprazole 20 MG Oral TabletTAKE 1 TABLET DAILY. clonazePAM 0.5 MG Oral TabletTAKE 1 TABLET EVERY 12 HOURS NEEDED. Gabapentin 400 MG Oral CapsuleTAKE 1 CAPSULE 4 TIMES DAILY Vitals Vital Signs Recorded: [id number] 09:42AM Tobacco Usea) Yes Patient encouraged to stop using tobacco productsYes Fall Screeninga) No falls within the last year Physical Exam Constitutional General appearance: Alert and in no acute distress. Psychiatric Orientation: Oriented to person, place, and time. Mood and affect: Normal. Signatures Electronically signed by : MOHAN Mcmillan; Jan 20 2020 10:07AM EST (Author) Normal [facility] CORONAVIRUS 2019 BY PCRon SARS-CoV-2 (COVID-19) RNA MOISES+probe Ql (Unsp spec) Not detected Normal Not Detected [facility] Comment on above: Result Comment: . This assay is designed to detect SARS-CoV-2 based on replication of specific regions of the RNA from the SARS-CoV-2 virus. A Not Detected result does not preclude 2019-nCoV infection since the adequacy of sample collection and/or low viral burden may result in presence of viral nucleic acids below the clinical sensitivity of this test method. Fact sheet for providers: https://www.fda.gov/media/891588/download Fact sheet for patients: https://www.fda.gov/media/347220/download This test has received FDA Emergency Use Authorization [EUA] and has been verified by [facility] ([facility]). This test is only authorized for the duration of time that circumstances exist to justify the authorization of the emergency use of in vitro diagnostic tests for the detection of SARS-CoV-2 virus and/or diagnosis of COVID-19 infection under section 564(b)(1) of the Act, 21 U.S.C. 360bbb-3(b)(1), unless the authorization is terminated or revoked sooner. [facility] is certified under CLIA-88 as qualified to perform high complexity testing. Testing is performed in the [facility] laboratories located at [address] [place] [address]. Performed By: #### C OV19 #### [address] [place] [address] CORONAVIRUS 2019 BY PCRon Lab Specimen Source Nasal, Nasopharyngeal Normal [facility] Comment on above: Performed By: #### C OV19 #### [address] [place] [address] DATE OF SYMPTOM ONSET [YYYYMMDD]? [id number] Normal [facility] Comment on above: Performed By: #### C OV19 #### [address] [place] [address] EMPLOYED IN HEALTHCARE? No Normal [facility] Comment on above: Performed By: #### C OV19 #### [place] [id number] HOSPITALIZED (OR PLANNED TO BE ADMITTED)? No Normal [facility] Comment on above: Performed By: #### C OV19 #### [facility] [id number] [place] [address] ICU? [address] Normal [facility] Comment on above: Performed By: #### C OV19 #### [facility] [address] [place] [address] ? No Normal [facility] Comment on above: Performed By: #### C OV19 #### [facility] [address] [place] [address] RESIDENT IN CONGREGATE CARE SETTING? No Normal [facility] Comment on above: Performed By: #### C OV19 #### [facility] [address] [place] [address] SARS-CoV-2 (COVID-19) Ab IA Ql No Normal [facility] Comment on above: Performed By: #### C OV19 #### [facility] [address] [place] [address] SYMPTOMATIC DEFINED BY CDC? Yes Normal [facility] Comment on above: Performed By: #### C OV19 #### [facility] [address] [place] [address] Office Visit (Internal Medic ine)on 01-06-2020 Follow-up visit Diagnoses/Problems Assessed Flu-like symptoms (780.99) (R68.89) Contact with and (suspected) exposure to other viral communicable diseases (V01.79) (Z20.828) Orders Contact with and (suspected) exposure to other viral communicable diseases, Flu-like symptoms Coronavirus 2019 RNA by PCR, Symptomatic; Status:Active; Requested for:[id number]; Perform:Lab Services - Lab To Draw (Non-Blood Test); Due:[id number];Ordered; For:Contact with and (suspected) exposure to other viral communicable diseases, Flu-like symptoms; Ordered By:Nini Wolf; ? : No RESIDENT IN CONGREGATE CARE SETTING? : No ICU? : No HOSPITALIZED (OR PLANNED TO BE ADMITTED)? : No EMPLOYED IN HEALTHCARE? : No FIRST COVID NASAL SWAB TEST? : No Symptom 2 : Runny nose/Congestion Symptom 1 : Body aches/Malaise DATE OF SYMPTOM ONSET? : 06Jan2020 IS THE PATIENT SYMPTOMATIC DEFINED BY THE CDC (FEVER>100, NEW WORSENING COUGH OR SHORTNESS OF BREATH, NEW LOSS OF TASTE OR SMELL, SORE THROAT, DIARRHEA, BODY ACHES/MALAISE, HEADACHE, NAUSEA/VOMITING, OR RUNNY NOSE/CONGESTION)? : Yes SocHx: Cigarette smoker Renew: Albuterol Sulfate HFA 108 (90 Base) MCG/ACT Inhalation Aerosol Solution; INHALE 2 PUFFS Every 6 hours PRN SOB/WHEEZING Rx By: Nini Wolf; Dispense: 30 Days ; #:1 X 6.7 GM Inhaler; Refill: 0;For: SocHx: Cigarette smoker; LISA = N; Sent To: [facility] Patient Discussion/Summary F/U BEFORE PER REQUEST WILL CALL SATURDAY FOR COVID RESULTS Provider Impressions SCHEDULED FOR [facility] COVID-19 TESTING. INSTRUCTED TO SELF QUARANTINE AND TO PRACTICE GOOD HAND WASHING TECHNIQUES. PT WAS INSTRUCTED TO INCREASE FLUID INTAKE AND TAKE TYLENOL 650 MG PO Q6H/PRN FOR PAIN OR FEVER. RETURN SOONER OR GO TO THE ER IF SYMPTOMS PERSIST OR WORSEN Chief Complaint An interactive audio and video telecommunication system which permits real time communications between the patient (at the originating site) and provider (at the distant site) was utilized to provide this telehealth service. Verbal consent was requested and obtained from LYLE FLYNN on this date, 01/06/2020 02:20 PM , for a telehealth visit. VIRTUAL VISIT; EXPOSURE TO POSTIVE COVID PERSON--BOYFRIEND TESTED POSITIVE ON Saturday01/04/20. [place] [facility] [place]C/O SINUS CONGESTION/RUNNY NOSE, FATIGUE, LOSS OF SMELL AND SORE THROAT X 3 DAYS History of Present IllnessVIRTUAL APPOINTMENT BEING PERFORMED DUE TO COVID-19 (CORONAVIRUS) Presents today for C/O SINUS CONGESTION, FATIGUE, AND LOSS OF SMELL X 2 DAYS modifying factors consists of BOYFRIEND POSITIVE FOR COVID ON 01/04/2020 associated symptoms consist of SORE THROAT prior treatment consists of medication NONE Review of Systems Constitutional: feeling poorly, but no fever, no recent weight gain, no recent weight loss and no chills. Eyes: no blurred vision, no diplopia and no eyesight problems. ENT: sore throat, but no hearing loss, no tinnitus, no earache, no hoarseness and no swollen glands in the neck. Cardiovascular: no chest pain, no tightness or heavy pressure, no shortness of breath, no palpitations and no lower extremity edema. Respiratory: no cough, not coughing up sputum and no wheezing that is consistent with asthma. Gastrointestinal: no change in bowel habits, no diarrhea, no constipation, no bloody stools, no nausea, no vomiting, no abdominal pain, no signs and symptoms of ulcer disease, no nataliia colored stools and no intolerance to fatty foods. Genitourinary: no urinary frequency, no dysuria, no burning sensation during urination and no hematuria. Musculoskeletal: no arthralgias, no joint stiffness, no muscle weakness, no back pain and no difficulty walking. Skin: no rashes, no change in skin color and pigmentation, no skin lesions and no skin lumps. Neurological: no headaches, no dizziness, no seizures, no tingling, no numbness, no signs and symptoms of stroke and no limb weakness. Psychiatric: no confusion, no memory lapses or loss, no depression, no sleep disturbances, no anxiety and not suicidal. 10 SYSTEMS REVIEWED AND NEGATIVE, WHICH THE EXCEPTION OF HPI LISTED ABOVE Active Problems Problems Alcohol use (V49.89) (Z72.89) Bipolar depression (296.50) (F31.9) Cigarette smoker (305.1) (F17.210) Generalized anxiety disorder with panic attacks (300.02,300.01) (F41.1,F41.0) Hepatitis-C (070.70) (B19.20) Iron deficiency (280.9) (E61.1) Medication management (V58.69) (Z79.899) Obesity (278.00) (E66.9) Restless legs syndrome (333.94) (G25.81) Past Medical History Problems No pertinent past medical history (V49.89) (Z78.9) Surgical History Problems History of Cervical loop electrosurgical excision Family History Mother Family history of Anxiety and depression Father Family history of hypertension (V17.49) (Z82.49) Maternal Grandmother Family history of cerebrovascular accident (CVA) (V17.1) (Z82.3) Social History Problems Alcohol use (V49.89) (Z72.89) Cigar (more content not included)... Normal [facility] OPIATE/OPIOID/BENZO EXTENDED PRESCRIPTION COMPLIANCEon 12-28-2019 6-ACETYLMORPHINE <25 Normal Cutoff <25 [facility] Comment on above: Performed By: #### C BCDF #### [place] [address] CODEINE <50 Normal Cutoff <50 [facility] Comment on above: Performed By: #### C BCDF #### [place] [address] EDDP,U <25 Normal Cutoff <25 [facility] Comment on above: Result Comment: The performance characteristics of the Methadone Confirmation, Urine has been validated by the individual laboratory site where testing is performed. It has not been cleared or approved by the FDA. However the FDA has determined that such clearance or approval is not necessary. Our Laboratory is certified under the Clinical Laboratory Improvement Amendments of 1988 (CLIA) as qualified to perform high complexity clinical laboratory testing. Performed By: #### C BCDF #### [place] [address] FENTANYL CONFIRM,U <2.5 Normal Cutoff<2.5 [facility] Comment on above: Performed By: #### C BCDF #### [place] [address] HYDROCODONE <25 Normal Cutoff <25 [facility] Comment on above: Performed By: #### C BCDF #### [place] [address] METHADONE,U <25 Normal Cutoff <25 [facility] Comment on above: Performed By: #### C BCDF #### [place] [address] NORFENTANYL CONFIRM,U <2.5 Normal Cutoff<2.5 [facility] Comment on above: Result Comment: The performance characteristics of the Fentanyl Confirmation, Urine has been validated by the individual laboratory site where testing is performed. It has not been cleared or approved by the FDA. However the FDA has determined that such clearance or approval is not necessary. Our Laboratory is certified under the Clinical Laboratory Improvement Amendments of 1988 (CLIA) as qualified to perform high complexity clinical laboratory testing. Performed By: #### C BCDF #### [place] [id number] NOROXYCODONE <25 Normal Cutoff <25 [facility] Comment on above: Performed By: #### C BCDF #### [place] [id number] O-DESMETHYLTRAMADOL,U <50 Normal Cutoff <50 [facility] Comment on above: Result Comment: The performance characteristics of the Tramadol Confirmation, Urine has been validated by the individual laboratory site where testing is performed. It has not been cleared or approved by the FDA. However the FDA has determined that such clearance or approval is not necessary. Our Laboratory is certified under the Clinical Laboratory Improvement Amendments of 1988 (CLIA) as qualified to perform high complexity clinical laboratory testing. Performed By: #### C BCDF #### [place] [address] OXYCODONE <25 Normal Cutoff <25 [facility] Comment on above: Performed By: #### C BCDF #### [place] [address] OXYMORPHONE <25 Normal Cutoff <25 [facility] Comment on above: Result Comment: The performance characteristics of the Opiate Confirmation, Urine has been validated by the individual laboratory site where testing is performed. It has not been cleared or approved by the FDA. However the FDA has determined that such clearance or approval is not necessary. Our Laboratory is certified under the Clinical Laboratory Improvement Amendments of 1988 (CLIA) as qualified to perform high complexity clinical laboratory testing. Performed By: #### C BCDF #### [place] [address] TRAMADOL CONFIRM,U <50 Normal Cutoff <50 [facility] Comment on above: Performed By: #### C BCDF #### [place] [id number] ZOLPIDEM METABOLITE[ZCA] ,U <25 Normal Cutoff <25 [facility] Comment on above: Result Comment: The performance characteristics of the Zolpidem Confirmation, Urine has been validated by the individual laboratory site where testing is performed. It has not been cleared or approved by the FDA. However the FDA has determined that such clearance or approval is not necessary. Our Laboratory is certified under the Clinical Laboratory Improvement Amendments of 1988 (CLIA) as qualified to perform high complexity clinical laboratory testing. Performed By: #### C BCDF #### [place] [address] ZOLPIDEM,URINE <25 Normal Cutoff <25 [facility] Comment on above: Performed By: #### C BCDF #### [place] [address] 7-AMINOCLONAZEPAM <25 Normal Cutoff <25 [facility] Comment on above: Performed By: #### C BCDF #### [place] [address] ALPHA-HYDROXYALPRAZOL AM <25 Normal Cutoff <25 [facility] Comment on above: Performed By: #### C BCDF #### [place] [address] ALPHA-HYDROXYMIDAZOLA M <25 Normal Cutoff <25 [facility] Comment on above: Performed By: #### C BCDF #### [place] [address] ALPRAZOLAM <25 Normal Cutoff <25 [facility] Comment on above: Performed By: #### C BCDF #### [place] [address] CHLORDIAZEPOXIDE <25 Normal Cutoff <25 [facility] Comment on above: Performed By: #### C BCDF #### [place] [address] CLONAZEPAM <25 Normal Cutoff <25 [facility] Comment on above: Performed By: #### C BCDF #### [place] [address] DIAZEPAM <25 Normal Cutoff <25 [facility] Comment on above: Performed By: #### C BCDF #### [place] [address] HYDROMORPHONE <25 Normal Cutoff <25 [facility] Comment on above: Performed By: #### C BCDF #### [place] [address] LORAZEPAM <25 Normal Cutoff <25 [facility] Comment on above: Performed By: #### C BCDF #### [place] [address] MIDAZOLAM <25 Normal Cutoff <25 [facility] Comment on above: Performed By: #### C BCDF #### [place] [address] MORPHINE <50 Normal Cutoff <50 [facility] Comment on above: Performed By: #### C BCDF #### [place] [address] NORDIAZEPAM <25 Normal Cutoff <25 [facility] Comment on above: Performed By: #### C BCDF #### [place] [address] NORHYDROCODONE <25 Normal Cutoff <25 [facility] Comment on above: Performed By: #### C BCDF #### [place] [address] OXAZEPAM <25 Normal Cutoff <25 [facility] Comment on above: Performed By: #### C BCDF #### [place] [address] TEMAZEPAM <25 Normal Cutoff <25 [facility] Comment on above: Result Comment: The performance characteristics of the Benzodiazepine Confirmation, Urine has been validated by the individual laboratory site where testing is performed. It has not been cleared or approved by the FDA. However the FDA has determined that such clearance or approval is not necessary. Our Laboratory is certified under the Clinical Laboratory Improvement Amendments of 1988 (CLIA) as qualified to perform high complexity clinical laboratory testing. Performed By: #### C BCDF #### [place] [address] OPIATE/OPIOID/BENZO EXTENDED PRESCRIPTION COMPLIANCEon 12-24-2019 Specific gravity (U) [Rel density] 1.0060 Normal Valid 1.0020-1.020 0 [facility] Comment on above: Performed By: #### C BCDF #### [place] [address] AMPHETAMINE SCREEN,U Negative Normal NEGATIVE [facility] Comment on above: Result Comment: CUTO FF LEVEL: 500 NG/ML Cross-reactivity has been reported with high concentrations of the following drugs: buproprion, chloroquine, chlorpromazine, ephedrine, mephentermine, fenfluramine, phentermine, phenylpropanolamine, pseudoephedrine, and propranolol. Performed By: #### C BCDF #### [place] [address] BARBITURATES SCREEN,U Negative Normal NEGATIVE [facility] Comment on above: Result Comment: CUTO FF LEVEL: 200 NG/ML Performed By: #### C BCDF #### [place] [address] CANNABINOIDS SCREEN,U Negative Normal NEGATIVE [facility] Comment on above: Result Comment: CUTO FF LEVEL: 50 NG/ML Performed By: #### C BCDF #### [place] [address] COCAINE METABOLITE SCREEN,U Negative Normal NEGATIVE [facility] Comment on above: Result Comment: CUTO FF LEVEL: 150 NG/ML Performed By: #### C BCDF #### [place] [address] Creatinine [Mass/Vol] 19.9 mg/dL Abnormal [facility] Comment on above: Result Comment: A ur ine creatinine result >= 20 mg/dL is considered valid without suspicion of dilution. Samples with results below this range will automatically reflex to specific gravity testing to verify specimen integrity. Performed By: #### C BCDF #### [place] [address] DRUG SCREEN COMMENT. SEE BELOW Normal [facility] Comment on above: Result Comment: Drug screen results are presumptive and should not be used to assess compliance with prescribed medication. Definitive confirmatory drug testing has been added to this sample for any positive screen result and will be reported separately. . Toxicology screening results are reported qualitatively. The concentration must be greater than or equal to the cutoff to be reported as positive. The concentration at which the screening test can detect an individual drug or metabolite varies. The absence of expected drug(s) and/or drug metabolite(s) may indicate non-compliance, inappropriate timing of specimen collection relative to drug administration, poor drug absorption, diluted/adulterated urine, or limitations of testing. For medical purposes only; not valid for forensic use. . Interpretive questions should be directed to the laboratory medical directors. Performed By: #### C BCDF #### [address] [address] PCP SCREEN,U Negative Normal NEGATIVE [facility] Comment on above: Result Comment: CUTO FF LEVEL: 25 NG/ML Cross-reactivity has been reported with dextromethorphan. Performed By: #### C BCDF #### [address] [address] Office Visit (Internal Medic ine)on 12-23-2019 Follow-up visit Diagnoses/Problems Assessed Generalized anxiety disorder with panic attacks (300.02,300.01) (F41.1,F41.0) Bipolar depression (296.50) (F31.9) Restless legs syndrome (333.94) (G25.81) Medication management (V58.69) (Z79.899) Orders Generalized anxiety disorder with panic attacks Renew: clonazePAM 0.5 MG Oral Tablet; TAKE 1 TABLET EVERY 12 HOURS NEEDED Rx By: Nini Wolf; Dispense: 30 Days ; #:60 Tablet; Refill: 0;For: Generalized anxiety disorder with panic attacks; LISA = N; Verified Transmission to [facility]; Msg to Pharmacy: OARRS REVIEWED. VOID SCRIPT 30 DAYS AFTER WRITTEN DATE.; Last Updated By: Vijay Antonio; 12/23/2019 11:38:29 AM Medication management OPIATE/OPIOID/BENZO [EXTENDED] PRESCRIPTION COMPLIANCE; Status:Active - Retrospective Authorization; Requested for:23Dec2019; Perform:Lab Services - Lab To Draw (Non-Blood Test); Due:28Dec2019; Last Updated By:Debra Bland; 12/23/2019 10:15:01 AM;Ordered; For:Medication management; Ordered By:Nini Wolf; CONTROLLED MEDICATION AGREEMENT ; every 1 year; Next 22Dec2020; Status:Active For: 'Medication management'Ordered By: 'PRIMARY ASHL03 RN1, [id number]' URINE DRUG TOXICOLOGY ; every 1 year; 22Dec2020; Status:Active For: 'Medication management'Ordered By: 'PRIMARY [id number] RN1, [id number]' Restless legs syndrome Renew: Gabapentin 400 MG Oral Capsule; TAKE 1 CAPSULE 4 TIMES DAILY Rx By: Nini Wolf; Dispense: 30 Days ; #:120 Capsule; Refill: 2;For: Restless legs syndrome; LISA = N; Verified Transmission to [id number]; Msg to Pharmacy: OARRS REVIEWED. VOID SCRIPT AND REFILLS 90 DAYS AFTER PRESCRIBING DATE.; Last Updated By: Vijay Antonio; 12/23/2019 11:38:38 AM Patient Discussion/Summary F/U 3 MONTHS MED REFILL Provider Impressions I HAVE REVIEWED THE OARRS, WHICH WAS APPROPRIATE. I HAVE EVALUATED THE RISKS OF ABUSE, ADDICTION, DIVERSION, AND DEPENDENCE. PRESCRIBED MEDICATION SEEMS APPROPRIATE FOR DOCUMENTED DIAGNOSIS. AFTER HER VIRTUAL APPT TODAY, SHE CAME INTO THE OFFICE AND SIGNED A NEW MEDICATION AGREEMENT FOR EACH PRESCRIBED CONTROL MED AND PROVIDED AN UPDATED URINE DRUG SCREEN. Chief Complaint An interactive audio and video telecommunication system which permits real time communications between the patient (at the originating site) and provider (at the distant site) was utilized to provide this telehealth service. Verbal consent was requested and obtained from LYLE FLYNN on this date, 12/23/2019 08:20 AM , for a telehealth visit. VIRTUAL VISIT; 1 MO F/U CLONAZEPAM AND GABAPENTIN-DISCUSS POSSIBLY INCREASING THE GABAPENTIN DUE TO C/O RLS GETTING WORSE--SHE IS BACK TO WORK NOW AND NOTICED IT GETTING WORSE AT NIGHT. DOES NEED TO SIGN A NEW CONTROLLED MED AGREEMENT History of Present Illness I have personally reviewed the OARRS report for LYLE FLYNN. I have considered the risks of abuse, dependence, addiction and diversion. Is the patient prescribed a combination of a benzodiazepine and opioid? No. Last urine drug screening date/ordered today: 12/23/2019 Date of the last Controlled Substance Agreement: 12/23/2019 VIRTUAL APPOINTMENT BEING PERFORMED DUE TO COVID-19 (CORONAVIRUS) Presents today for MED REFILL OF KLONOPIN, WHICH SHE TAKES FOR ANXIETY. SHE IS DOING WELL ON MED AND DENIES SIDE EFFECTS. C/O INCREASED RESTLESS LEG SYMPTOMS AT NIGHT X SEVERAL WEEKS modifying factors consists of STATES SHE TAKES 1 CAP OF GABAPENTIN IN AM AND 2 CAPS AT NIGHT. associated symptoms consist of NONE prior treatment consists of medication GABAPENTIN 400 MG BIPOLAR- WELL CONTROLLED. CONTINUE CURRENT MANAGEMENT. SHE HAS NOT SEEN PSYCH YET. SHE STATES THEY STILL HAVE NOT CALLED HER FOR AN APPT. INSTRUCTED TO CALL NEL VERDUGO NP OFFICE AND MAKE APPT Review of Systems Constitutional: not feeling poorly, no fever, no recent weight gain, no recent weight loss and no chills. Eyes: no blurred vision, no diplopia and no eyesight problems. ENT: no hearing loss, no tinnitus, no earache, no sore throat, no hoarseness and no swollen glands in the neck. Cardiovascular: no chest pain, no tightness or heavy pressure, no shortness of breath, no palpitations and no lower extremity edema. Respiratory: no cough, not coughing up sputum and no wheezing that is consistent with asthma. Gastrointestinal: no change in bowel habits, no diarrhea, no constipation, no bloody stools, no nausea, no vomiting, no abdominal pain, no signs and symptoms of ulcer disease, no nataliia colored stools and no intolerance to fatty foods. Genitourinary: no urinary frequency, no dysuria, no burning sensation during urination and no hematuria. Musculoskeletal: no arthralgias, no joint stiffness, no muscle weakness, no back pain, no difficulty walking and as noted in HPI. Skin: no rashes, no change in skin color and pigmentation, no skin lesions and no skin lumps. Neurological: no headaches, no dizziness, no seizures, no tingling, no numbness, no signs and symptoms of str (more content not included)... Normal [facility] Office Visit (Internal Medic ine)on 11-03-2019 Follow-up visit Diagnoses/Problems Assessed Bipolar depression (296.50) (F31.9) Generalized anxiety disorder with panic attacks (300.02,300.01) (F41.1,F41.0) Restless legs syndrome (333.94) (G25.81) Orders Generalized anxiety disorder with panic attacks Renew: clonazePAM 0.5 MG Oral Tablet; TAKE 1 TABLET EVERY 12 HOURS NEEDED Rx By: Nini Wolf; Dispense: 30 Days ; #:60 Tablet; Refill: 0;For: Generalized anxiety disorder with panic attacks; LISA = N; Verified Transmission to [facility]; Msg to Pharmacy: OARRS REVIEWED. VOID SCRIPT 30 DAYS AFTER WRITTEN DATE. DO NOT FILL UNTIL 11/21/2019; Last Updated By: Vijay Antonio; 11/03/2019 1:42:47 PM Restless legs syndrome Renew: Gabapentin 400 MG Oral Capsule; TAKE 1 CAPSULE 3 TIMES DAILY Rx By: Nini Wolf; Dispense: 30 Days ; #:90 Capsule; Refill: 2;For: Restless legs syndrome; LISA = N; Verified Transmission to [facility] 1448; Msg to Pharmacy: OARRS REVIEWED. VOID SCRIPT AND REFILLS 90 DAYS AFTER PRESCRIBING DATE. DO NOT FILL UNTIL 11/08/2019; Last Updated By: Vijay Antonio; 11/03/2019 1:43:02 PM Patient Discussion/Summary F/U FIRST WEEK OF DECEMBER MED REFILL Provider Impressions WE DISCUSSED MOST COMMON SIDE EFFECTS OF PRESCRIBED MEDICATIONS AND RISKS, INCLUDING SEDATION. WE DISCUSSED AVOIDANCE OF ALCOHOL IN GREAT DETAIL AND REASONS TO AVOID ALCOHOL WHILE TAKING KLONOPIN INCLUDING DECREASE RESPIRATIONS, SEDATION, AND . SHE DENIES ANY ALCOHOL USAGE SINCE STARING MED. INSTRUCTED TO RETURN SOONER IF SYMPTOMS PERSIST OR WORSEN. SHE VOICED UNDERSTANDING AND DENIES FURTHER QUESTIONS AT THIS TIME. In light of the current pandemic related to Coronavirus causing COVID-19 illness, and in accordance with [facility] guidelines which encourage social distancing, I have spoken with my patient via telemedicine. I have personally reviewed the OARRS report for this patient. This report is scanned into the electronic medical record. I have considered the risks of abuse, dependence, addiction and diversion. My patient is aware that they will need a follow-up visit (either in-person or virtually) in another 30 days for continued medications. Further, my patient is aware that when this acute crisis has lifted, they will be expected to return for an in-person visit and all elements of guidelines in order to continue this medication.? I HAVE REVIEWED THE OARRS, WHICH WAS APPROPRIATE. I HAVE EVALUATED THE RISKS OF ABUSE, ADDICTION, DIVERSION, AND DEPENDENCE. PRESCRIBED MEDICATION SEEMS APPROPRIATE FOR DOCUMENTED DIAGNOSIS. Chief Complaint An interactive audio and video telecommunication system which permits real time communications between the patient (at the originating site) and provider (at the distant site) was utilized to provide this telehealth service. Verbal consent was requested and obtained from LYLE FLYNN on this date, 11/03/2019 01:20 PM , for a telehealth visit. VIRTUAL VISIT - 3 WEEK F/U MED CHECK. PATIENT HAS BEEN DOING WELL WITH ABILIFY DOSE INCREASE AND USING KLONOPIN PRN. PATIENT IS CURRENTLY ON A WAITING LIST TO SEE PSYCH IN [place], [place]. DUE FOR GABAPENTIN REFILL SOON. History of Present Illness I have personally reviewed the OARRS report for LYLE FLYNN. I have considered the risks of abuse, dependence, addiction and diversion. Is the patient prescribed a combination of a benzodiazepine and opioid? No. Last urine drug screening date/ordered today: 02/17/2019 Date of the last Controlled Substance Agreement: 01/14/2019 VIRTUAL APPOINTMENT BEING PERFORMED DUE TO COVID-19 (CORONAVIRUS) Presents today for MED CHECK R/T ABILIFY AND KLONOPIN INCREASE. SHE IS DOING WELL ON BOTH AND DENIES SIDE EFFECTS. NO NEW COMPLAINTS MED REFILL OF GABAPENTIN WHICH SHE TAKES FOR RESTLESS LEG. SHE IS DOING WELL ON DOSAGE AND DENIES SIDE EFFECTS Review of Systems Constitutional: not feeling poorly, no fever, no recent weight gain, no recent weight loss and no chills. Eyes: no blurred vision, no diplopia and no eyesight problems. ENT: no hearing loss, no tinnitus, no earache, no sore throat, no hoarseness and no swollen glands in the neck. Cardiovascular: no chest pain, no tightness or heavy pressure, no shortness of breath, no palpitations and no lower extremity edema. Respiratory: no cough, not coughing up sputum and no wheezing that is consistent with asthma. Gastrointestinal: no change in bowel habits, no diarrhea, no constipation, no bloody stools, no nausea, no vomiting, no abdominal pain, no signs and symptoms of ulcer disease, no nataliia colored stools and no intolerance to fatty foods. Genitourinary: no urinary frequency, no dysuria, no burning sensation during urination and no hematuria. Musculoskeletal: no arthralgias, no joint stiffness, no muscle weakness, no back pain and no difficulty walking. Skin: no rashes, no change in skin color and pigmentation, no skin lesions and no skin lumps. Neurological: no headaches, no dizziness, no seizures, no tingling, no numbness, (more content not included)... [facility] Office Visit (Internal Medic ine)on 10-23-2019 Follow-up visit Diagnoses/Problems Assessed Generalized anxiety disorder with panic attacks (300.02,300.01) (F41.1,F41.0) Bipolar depression (296.50) (F31.9) Orders Generalized anxiety disorder with panic attacks Renew: clonazePAM 0.5 MG Oral Tablet; TAKE 1 TABLET EVERY 12 HOURS NEEDED Rx By: Nini Wolf; Dispense: 30 Days ; #:60 Tablet; Refill: 0;For: Generalized anxiety disorder with panic attacks; LISA = N; Sent To: [facility]; Msg to Pharmacy: OARRS REVIEWED. VOID SCRIPT 30 DAYS AFTER WRITTEN DATE; Last Updated By: [employer]; 10/23/2019 12:31:10 PM Patient Discussion/Summary F/U BEFORE Provider Impressions WE DISCUSSED MOST COMMON SIDE EFFECTS OF PRESCRIBED MEDICATIONS AND RISKS, INCLUDING SEDATION. WE DISCUSSED AVOIDANCE OF ALCOHOL IN GREAT DETAIL AND REASONS TO AVOID ALCOHOL WHILE TAKING KLONOPIN INCLUDING DECREASE RESPIRATIONS, SEDATION, AND . SHE DENIES ANY ALCOHOL USAGE SINCE STARING MED. INSTRUCTED TO RETURN SOONER IF SYMPTOMS PERSIST OR WORSEN. SHE VOICED UNDERSTANDING AND DENIES FURTHER QUESTIONS AT THIS TIME. In light of the current pandemic related to Coronavirus causing COVID-19 illness, and in accordance with [facility] guidelines which encourage social distancing, I have spoken with my patient via telemedicine. I have personally reviewed the OARRS report for this patient. This report is scanned into the electronic medical record. I have considered the risks of abuse, dependence, addiction and diversion. My patient is aware that they will need a follow-up visit (either in-person or virtually) in another 30 days for continued medications. Further, my patient is aware that when this acute crisis has lifted, they will be expected to return for an in-person visit and all elements of guidelines in order to continue this medication.? I HAVE REVIEWED THE OARRS, WHICH WAS APPROPRIATE. I HAVE EVALUATED THE RISKS OF ABUSE, ADDICTION, DIVERSION, AND DEPENDENCE. PRESCRIBED MEDICATION SEEMS APPROPRIATE FOR DOCUMENTED DIAGNOSIS. Chief Complaint An interactive audio and video telecommunication system which permits real time communications between the patient (at the originating site) and provider (at the distant site) was utilized to provide this telehealth service. Verbal consent was requested and obtained from LYLE FLYNN on this date, 10/23/2019 01:00 PM , for a telehealth visit. MED RF History of Present IllnessVIRTUAL APPOINTMENT BEING PERFORMED DUE TO COVID-19 (CORONAVIRUS) Presents today for MED REFILL OF KLONOPIN WHICH SHE TAKES FOR ANXIETY. SHE INCREASED DOSE TO 1 TAB (0.5 TAB) BECAUSE THE 0.25 MG DID NOT HELP. SHE IS DOING WELL ON ABILIFY INCREASE WELL. NO NEW COMPLAINTS Review of Systems Constitutional: not feeling poorly, no fever, no recent weight gain, no recent weight loss and no chills. Eyes: no blurred vision, no diplopia and no eyesight problems. ENT: no hearing loss, no tinnitus, no earache, no sore throat, no hoarseness and no swollen glands in the neck. Cardiovascular: no chest pain, no tightness or heavy pressure, no shortness of breath, no palpitations and no lower extremity edema. Respiratory: no cough, not coughing up sputum and no wheezing that is consistent with asthma. Gastrointestinal: no change in bowel habits, no diarrhea, no constipation, no bloody stools, no nausea, no vomiting, no abdominal pain, no signs and symptoms of ulcer disease, no nataliia colored stools and no intolerance to fatty foods. Genitourinary: no urinary frequency, no dysuria, no burning sensation during urination and no hematuria. Musculoskeletal: no arthralgias, no joint stiffness, no muscle weakness, no back pain and no difficulty walking. Skin: no rashes, no change in skin color and pigmentation, no skin lesions and no skin lumps. Neurological: no headaches, no dizziness, no seizures, no tingling, no numbness, no signs and symptoms of stroke and no limb weakness. Psychiatric: no confusion, no memory lapses or loss, no depression, no sleep disturbances, no anxiety and not suicidal. 10 SYSTEMS REVIEWED AND NEGATIVE, WHICH THE EXCEPTION OF HPI LISTED ABOVE Active Problems Problems Alcohol use (V49.89) (Z72.89) Bipolar depression (296.50) (F31.9) Cigarette smoker (305.1) (F17.210) Generalized anxiety disorder with panic attacks (300.02,300.01) (F41.1,F41.0) Hepatitis-C (070.70) (B19.20) Iron deficiency (280.9) (E61.1) Medication management (V58.69) (Z79.899) Obesity (278.00) (E66.9) Restless legs syndrome (333.94) (G25.81) Surgical History Problems History of Cervical loop electrosurgical excision Family History Mother Family history of Anxiety and depression Father Family history of hypertension (V17.49) (Z82.49) Maternal Grandmother Family history of cerebrovascular accident (CVA) (V17.1) (Z82.3) Social History Problems Alcohol use (V49.89) (Z72.89) Cigarette smoker (305.1) (F17.210) Current every day smoker (305.1) (F17.200) History of heroin use (305.53) (Z87 (more content not included)... Normal [facility] Office Visit (Internal Medic ine)on 10-13-2019 Follow-up visit Diagnoses/Problems Assessed Bipolar depression (296.50) (F31.9) Hospital discharge follow-up (V67.59) (Z09) Generalized anxiety disorder with panic attacks (300.02,300.01) (F41.1,F41.0) Orders Bipolar depression Renew: ARIPiprazole 20 MG Oral Tablet; TAKE 1 TABLET DAILY Rx By: Nini Wolf; Dispense: 90 Days ; #:90 Tablet; Refill: 0;For: Bipolar depression; LISA = N; Verified Transmission to [facility] [id number]; Last Updated By: [employer]oSharePlow; 10/13/2019 1:15:20 PM Bipolar depression, Generalized anxiety disorder with panic attacks Adult Psychiatry Referral Evaluation and Treatment Evaluate AND Treat Status: Hold For - Scheduling Requested for: 13Oct2019 Ordered;For: Bipolar depression, Generalized anxiety disorder with panic attacks; Ordered By: Nini Wolf Performed: Order Comments: NEL CRUZ APPLICATION DEVELOPMENT PROJECT MANAGER. KARTIK CASTELLON Due: 11Jan2020 Generalized anxiety disorder with panic attacks Start: clonazePAM 0.25 MG Oral Tablet Disintegrating; PLACE 1 TABLET ON TONGUE AND ALLOW TO DISSOLVE TWICE DAILY NEEDED Rx By: Nini Wolf; Dispense: 15 Days ; #:30 Tablet; Refill: 0;For: Generalized anxiety disorder with panic attacks; LISA = N; Verified Transmission to [facility]; Msg to Pharmacy: OARRS REVIEWED. VOID SCRIPT 30 DAYS AFTER WRITTEN DATE. AVOID ALCOHOL WITH USAGE; Last Updated By: System, [email or web address]; 10/13/2019 1:14:11 PM Patient Discussion/Summary F/U 3 WEEKS MED CHECK REFER TO NEL CRUZ, APPLICATION DEVELOPMENT PROJECT MANAGER KARTIK CASTELLON Provider Impressions WILL INCREASE ABILIFY TO 20 MG DAILY, START PRN KLONOPIN, AND REFER TO PSYCH. WE DISCUSSED MOST COMMON SIDE EFFECTS OF PRESCRIBED MEDICATIONS AND RISKS, INCLUDING SEDATION. WE DISCUSSED AVOIDANCE OF ALCOHOL IN GREAT DETAIL AND REASONS TO AVOID ALCOHOL WHILE TAKING KLONOPIN INCLUDING DECREASE RESPIRATIONS, SEDATION, AND . INSTRUCTED TO RETURN SOONER IF SYMPTOMS PERSIST OR WORSEN. SHE VOICED UNDERSTANDING AND DENIES FURTHER QUESTIONS AT THIS TIME. In light of the current pandemic related to Coronavirus causing COVID-19 illness, and in accordance with [facility] guidelines which encourage social distancing, I have spoken with my patient via telemedicine. I have personally reviewed the OARRS report for this patient. This report is scanned into the electronic medical record. I have considered the risks of abuse, dependence, addiction and diversion. My patient is aware that they will need a follow-up visit (either in-person or virtually) in another 30 days for continued medications. Further, my patient is aware that when this acute crisis has lifted, they will be expected to return for an in-person visit and all elements of guidelines in order to continue this medication.? I HAVE REVIEWED THE OARRS, WHICH WAS APPROPRIATE. I HAVE EVALUATED THE RISKS OF ABUSE, ADDICTION, DIVERSION, AND DEPENDENCE. PRESCRIBED MEDICATION SEEMS APPROPRIATE FOR DOCUMENTED DIAGNOSIS. Chief Complaint An interactive audio and video telecommunication system which permits real time communications between the patient (at the originating site) and provider (at the distant site) was utilized to provide this telehealth service. Verbal consent was requested and obtained from LYLE FLYNN on this date, 10/13/2019 02:40 PM , for a telehealth visit. [place] [facility] [place]; C/O HAVING PANIC ATTACKS X 3 A WEEK-SHE ISN'T WANTING TO LEAVE HER HOUSE ANYMORE. History of Present IllnessVIRTUAL APPOINTMENT BEING PERFORMED DUE TO COVID-19 (CORONAVIRUS) Presents today for KARTIK PATEL F/U FOR ANXIETY/PANIC ATTACK. C/O INCREASED ANXIETY X 2 MONTHS modifying factors consists of WAS KEPT OVER NIGHT FOR OBSERVATION. REQUESTING REFERRAL TO APPLICATION DEVELOPMENT PROJECT MANAGER IN [facility]. STATES SHE HAS A 3 MONTH WAIT LIST. associated symptoms consist of PANIC ATTACKS 3X/WEEK. HARD TO LEAVE HER HOUSE R/T ANXIETY. prior treatment consists of medication ABILIFY 15 MG, HYDROXYZINE PRN, BUSPAR IN PAST WHICH DID NOT HELP Review of Systems Constitutional: not feeling poorly, no fever, no recent weight gain, no recent weight loss and no chills. Eyes: no blurred vision, no diplopia and no eyesight problems. ENT: no hearing loss, no tinnitus, no earache, no sore throat, no hoarseness and no swollen glands in the neck. Cardiovascular: no chest pain, no tightness or heavy pressure, no shortness of breath, no palpitations and no lower extremity edema. Respiratory: no cough, not coughing up sputum and no wheezing that is consistent with asthma. Gastrointestinal: no change in bowel habits, no diarrhea, no constipation, no bloody stools, no nausea, no vomiting, no abdominal pain, no signs and symptoms of ulcer disease, no nataliia colored stools and no intolerance to fatty foods. Genitourinary: no urinary frequency, no dysuria, no burning sensation during urination and no hematuria. Musculoskeletal: no arthralgias, no joint stiffness, no muscle weakness, no back pain and no difficulty walking. Skin: no rashes, no change in skin color and pigmentat (more content not included)... Normal [facility] Office Visit (Internal Medic ine)on 09-08-2019 Follow-up visit Diagnoses/Problems Assessed Encounter for screening for other viral diseases (V73.89) (Z11.59) Flu-like symptoms (780.99) (R68.89) Contact with and (suspected) exposure to other viral communicable diseases (V01.79) (Z20.828) Patient Discussion/Summary F/U BEFORE Provider Impressions SCHEDULED FOR [facility] COVID-19 TESTING TODAY AT 1100. INSTRUCTED TO SELF QUARANTINE AND TO PRACTICE GOOD HAND WASHING TECHNIQUES. PT WAS INSTRUCTED TO INCREASE FLUID INTAKE AND TAKE TYLENOL 650 MG PO Q6H/PRN FOR PAIN OR FEVER. RETURN SOONER OR GO TO THE ER IF SYMPTOMS PERSIST OR WORSEN Chief Complaint A telephone visit (audio only) between the patient (at the originating site) and the provider (at the distant site) was utilized to provide this telehealth service. Verbal consent was requested and obtained from LYLE FLYNN on this date, 09/08/2019 08:20 AM , for a telehealth visit. WORK SENT PT HOME CANT RETURN UNTIL TESTED FOR COVID PT COUGHING HAD SORE THROAT YESTERDAY History of Present IllnessTELEPHONE APPOINTMENT BEING PERFORMED DUE TO COVID-19 (CORONAVIRUS) Presents today for C/O SORE THROAT AND DRY COUGH X 2 DAYS modifying factors consists of H/O SMOKING AND STATES COUGH IS NOT NEW. SORE THROAT IS IMPROVING. SHE WAS SENT HOME FROM WORK. WORKS AT [employer] IN [place] AND THEY REFUSE TO LET HER BACK WITHOUT A NEGATIVE COVID-19 TEST. POSSIBLE EXPOSURE WITH HER SISTER. HER SISTER WAS IN QUARANTINE R/T EXPOSURE AND SHE VISITED HER. SISTER HAS NOT BEEN TESTED. associated symptoms consist of BODY ACHES ON/OFF prior treatment consists of medication NONE Review of Systems Constitutional: feeling poorly, but no fever, no recent weight gain, no recent weight loss and no chills. Eyes: no blurred vision, no diplopia and no eyesight problems. ENT: sore throat, but no hearing loss, no tinnitus, no earache, no hoarseness and no swollen glands in the neck. Cardiovascular: no chest pain, no tightness or heavy pressure, no shortness of breath, no palpitations and no lower extremity edema. Respiratory: cough, but not coughing up sputum and no wheezing that is consistent with asthma. Gastrointestinal: no change in bowel habits, no diarrhea, no constipation, no bloody stools, no nausea, no vomiting, no abdominal pain, no signs and symptoms of ulcer disease, no nataliia colored stools and no intolerance to fatty foods. Genitourinary: no urinary frequency, no dysuria, no burning sensation during urination and no hematuria. Musculoskeletal: no arthralgias, no joint stiffness, no muscle weakness, no back pain and no difficulty walking. Skin: no rashes, no change in skin color and pigmentation, no skin lesions and no skin lumps. Neurological: no headaches, no dizziness, no seizures, no tingling, no numbness, no signs and symptoms of stroke and no limb weakness. Psychiatric: no confusion, no memory lapses or loss, no depression, no sleep disturbances, no anxiety and not suicidal. 10 SYSTEMS REVIEWED AND NEGATIVE, WHICH THE EXCEPTION OF HPI LISTED ABOVE Active Problems Problems Alcohol use (V49.89) (Z72.89) Bipolar depression (296.50) (F31.9) Cigarette smoker (305.1) (F17.210) Generalized anxiety disorder with panic attacks (300.02,300.01) (F41.1,F41.0) Hepatitis-C (070.70) (B19.20) Iron deficiency (280.9) (E61.1) Medication management (V58.69) (Z79.899) Obesity (278.00) (E66.9) Restless legs syndrome (333.94) (G25.81) Surgical History Problems History of Cervical loop electrosurgical excision Family History Mother Family history of Anxiety and depression Father Family history of hypertension (V17.49) (Z82.49) Maternal Grandmother Family history of cerebrovascular accident (CVA) (V17.1) (Z82.3) Social History Problems Alcohol use (V49.89) (Z72.89) Cigarette smoker (305.1) (F17.210) Current every day smoker (305.1) (F17.200) History of heroin use (305.53) (Z87.898) 4 MO CLEAN Allergies Medication codeine Allergy; Rash; Tachycardia; Recorded By: Gisselle Whitt; 01/14/2019 9:02:07 AM SEROquel TABS Adverse Reaction; Swelling; Recorded By: Gisselle Whitt; 04/17/2019 1:35:08 PM Current Meds Medication NameInstruction Albuterol Sulfate HFA 108 (90 Base) MCG/ACT Inhalation Aerosol SolutionINHALE 2 PUFFS Every 6 hours PRN SOB/WHEEZING ARIPiprazole 15 MG Oral TabletTAKE 1 TABLET DAILY. Gabapentin 400 MG Oral CapsuleTAKE 1 CAPSULE 3 TIMES DAILY. hydrOXYzine HCl - 25 MG Oral TabletTAKE 1-2 TABLETS QID PRN ANXIETY Vivitrol 380 MG Intramuscular Suspension ReconstitutedINJECT INTRAMUSCULARLY DIRECTED. Vitals Vital Signs Recorded: [id number] 08:08AM Fall Screeninga) No falls within the last year Physical Exam Psychiatric Orientation: Oriented to person, place, and time. Time Time Spent With Patient: 11 minutes of which greater than 50 percent was spent counseling and or coordinating care. Signatures Electronically signed by : MOHAN Mcmillan; Sep 08 2019 8:18AM EST (Author) Normal [facility] Office Visit (Internal Medic ine)on 09-03-2019 Follow-up visit Diagnoses/Problems Assessed Generalized anxiety disorder with panic attacks (300.02,300.01) (F41.1,F41.0) Bipolar depression (296.50) (F31.9) Orders Bipolar depression Renew: ARIPiprazole 15 MG Oral Tablet; TAKE 1 TABLET DAILY Rx By: Nini Wolf; Dispense: 90 Days ; #:90 Tablet; Refill: 3;For: Bipolar depression; LISA = N; [facility] Patient Discussion/Summary F/U AROUND November OR A LITTLE SOONER FOR GABAPENTIN REFILL Chief Complaint An interactive audio and video telecommunication system which permits real time communications between the patient (at the originating site) and provider (at the distant site) was utilized to provide this telehealth service. Verbal consent was requested and obtained from LYLE FLYNN on this date, 09/03/2019 01:00 PM , for a telehealth visit. VIRTUAL VISIT; 3 WK F/U MED CHECK-THE INCREASE IN ABILIFY AND THE HYDROXYZINE ARE HELPING; NO COMPLAINTS TODAY History of Present IllnessVIRTUAL APPOINTMENT BEING PERFORMED DUE TO COVID-19 (CORONAVIRUS) Presents today for 3 WEEK F/U APPT FOR MED CHECK. SHE IS DOING WELL WITH HER ABILIFY INCREASE AND WITH THE HYDROXYZINE PRN. NO NEW COMPLAINTS Review of Systems Constitutional: not feeling poorly, no fever, no recent weight gain, no recent weight loss and no chills. Eyes: no blurred vision, no diplopia and no eyesight problems. ENT: no hearing loss, no tinnitus, no earache, no sore throat, no hoarseness and no swollen glands in the neck. Cardiovascular: no chest pain, no tightness or heavy pressure, no shortness of breath, no palpitations and no lower extremity edema. Respiratory: no cough, not coughing up sputum and no wheezing that is consistent with asthma. Gastrointestinal: no change in bowel habits, no diarrhea, no constipation, no bloody stools, no nausea, no vomiting, no abdominal pain, no signs and symptoms of ulcer disease, no nataliia colored stools and no intolerance to fatty foods. Genitourinary: no urinary frequency, no dysuria, no burning sensation during urination and no hematuria. Musculoskeletal: no arthralgias, no joint stiffness, no muscle weakness, no back pain and no difficulty walking. Skin: no rashes, no change in skin color and pigmentation, no skin lesions and no skin lumps. Neurological: no headaches, no dizziness, no seizures, no tingling, no numbness, no signs and symptoms of stroke and no limb weakness. Psychiatric: no confusion, no memory lapses or loss, no depression, no sleep disturbances, no anxiety and not suicidal. 10 SYSTEMS REVIEWED AND NEGATIVE, WHICH THE EXCEPTION OF HPI LISTED ABOVE Active Problems Problems Alcohol use (V49.89) (Z72.89) Bipolar depression (296.50) (F31.9) Cigarette smoker (305.1) (F17.210) Generalized anxiety disorder with panic attacks (300.02,300.01) (F41.1,F41.0) Hepatitis-C (070.70) (B19.20) Iron deficiency (280.9) (E61.1) Medication management (V58.69) (Z79.899) Obesity (278.00) (E66.9) Restless legs syndrome (333.94) (G25.81) Surgical History Problems History of Cervical loop electrosurgical excision Family History Mother Family history of Anxiety and depression Father Family history of hypertension (V17.49) (Z82.49) Maternal Grandmother Family history of cerebrovascular accident (CVA) (V17.1) (Z82.3) Social History Problems Alcohol use (V49.89) (Z72.89) Cigarette smoker (305.1) (F17.210) Current every day smoker (305.1) (F17.200) History of heroin use (305.53) (Z87.898) 4 MO CLEAN Allergies Medication codeine Allergy; Rash; Tachycardia; Recorded By: Gisselle Whitt; 01/14/2019 9:02:07 AM SEROquel TABS Adverse Reaction; Swelling; Recorded By: Gisselle Whitt; 04/17/2019 1:35:08 PM Current Meds Medication NameInstruction Albuterol Sulfate HFA 108 (90 Base) MCG/ACT Inhalation Aerosol SolutionINHALE 2 PUFFS Every 6 hours PRN SOB/WHEEZING ARIPiprazole 15 MG Oral TabletTAKE 1 TABLET DAILY. Gabapentin 400 MG Oral CapsuleTAKE 1 CAPSULE 3 TIMES DAILY. hydrOXYzine HCl - 25 MG Oral TabletTAKE 1-2 TABLETS QID PRN ANXIETY Vivitrol 380 MG Intramuscular Suspension ReconstitutedINJECT INTRAMUSCULARLY DIRECTED. Physical Exam Constitutional General appearance: Alert and in no acute distress. Psychiatric Orientation: Oriented to person, place, and time. Mood and affect: Normal. Signatures Electronically signed by : MOHAN Mcmillan; Sep 03 2019 1:00PM EST (Author) Normal [facility] Office Visit (Internal Medic ine)on 08-13-2019 Follow-up visit Diagnoses/Problems Assessed Restless legs syndrome (333.94) (G25.81) Hepatitis-C (070.70) (B19.20) Medication management (V58.69) (Z79.899) Generalized anxiety disorder with panic attacks (300.02,300.01) (F41.1,F41.0) Bipolar depression (296.50) (F31.9) Orders Bipolar depression Renew: ARIPiprazole 15 MG Oral Tablet; TAKE 1 TABLET DAILY Rx By: Nini Wolf; Dispense: 90 Days ; #:90 Tablet; Refill: 0;For: Bipolar depression; LISA = N; Sent To: [facility]; Last Updated By: [employer]; 08/13/2019 9:21:58 AM Generalized anxiety disorder with panic attacks Renew: busPIRone HCl - 10 MG Oral Tablet; TAKE 2 TABLETS TWICE DAILY Rx By: Nini Wolf; Dispense: 90 Days ; #:360 Tablet; Refill: 0;For: Generalized anxiety disorder with panic attacks; LISA = N; Sent To: [facility] Restless legs syndrome Renew: Gabapentin 400 MG Oral Capsule; TAKE 1 CAPSULE 3 TIMES DAILY Rx By: Nini Wolf; Dispense: 30 Days ; #:90 Capsule; Refill: 2;For: Restless legs syndrome; LISA = N; Sent To: [facility]; Msg to Pharmacy: OARRS REVIEWED. VOID SCRIPT AND REFILLS 90 DAYS AFTER PRESCRIBING DATE; Last Updated By: [employer]; 08/13/2019 9:16:03 AM Patient Discussion/Summary F/U 3 WEEKS VIRTUAL MED CHECK Provider Impressions I WILL INCREASE ABILIFY TO 15 MG DAILY AND BUSPAR TO 20 MG TID PRN. I WILL SEE HER BACK IN 3 WEEKS FOR A MED CHECK. WE DISCUSSED MOST COMMON SIDE EFFECTS OF PRESCRIBED MEDICATIONS. INSTRUCTED TO RETURN SOONER IF SYMPTOMS PERSIST OR WORSEN. THEY VOICED UNDERSTANDING AND DENIES FURTHER QUESTIONS AT THIS TIME. I HAVE REVIEWED THE OARRS, WHICH WAS APPROPRIATE. I HAVE EVALUATED THE RISKS OF ABUSE, ADDICTION, DIVERSION, AND DEPENDENCE. PRESCRIBED MEDICATION SEEMS APPROPRIATE FOR DOCUMENTED DIAGNOSIS. Chief Complaint MED REFILL GABAPENTIN. C/O ANXIETY - PROGRESSIVELY GETTING WORSE OVER THE LAST FEW MONTHS. SHE TRIED TAKING BUSPAR BUT THIS OFFERS NO RELIEF SO SHE D/C MED. ANXIETY IS SO BAD THAT SHE CAN'T EVEN LEAVE THE HOUSE MOST DAYS - THIS ACTUALLY CAUSED HER TO LOSE HER JOB RECENTLY. History of Present Illness I have personally reviewed the OARRS report for LYLE FLYNN. I have considered the risks of abuse, dependence, addiction and diversion. Last urine drug screening date/ordered today: 02/17/2019 Date of the last Controlled Substance Agreement: 01/14/2019 Presents today for MED REFILL OF GABAPENTIN WHICH SHE TAKES FOR RESTLESS LEG. STATES DOSAGE IS WORKING WELL WITHOUT SIDE EFFECTS. 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 Eyes: no blurred vision, no diplopia and no eyesight problems. ENT: no hearing loss, no tinnitus, no earache, no sore throat, no hoarseness and no swollen glands in the neck. Cardiovascular: no chest pain, no tightness or heavy pressure, no shortness of breath, no palpitations and no lower extremity edema. Respiratory: no cough, not coughing up sputum and no wheezing that is consistent with asthma. Gastrointestinal: no change in bowel habits, no diarrhea, no constipation, no bloody stools, no nausea, no vomiting, no abdominal pain, no signs and symptoms of ulcer disease, no nataliia colored stools and no intolerance to fatty foods. Genitourinary: no urinary frequency, no dysuria, no burning sensation during urination and no hematuria. Musculoskeletal: no arthralgias, no joint stiffness, no muscle weakness, no back pain and no difficulty walking. Skin: no rashes, no change in skin color and pigmentation, no skin lesions and no skin lumps. Neurological: no headaches, no dizziness, no seizures, no tingling, no numbness, no signs and symptoms of stroke and no limb weakness. Psychiatric: anxiety, but no confusion, no memory lapses or loss, no depression, no sleep disturbances and not suicidal. 10 SYSTEMS REVIEWED AND NEGATIVE, WHICH THE EXCEPTION OF HPI LISTED ABOVE Active Problems Problems Alcohol use (V49.89) (Z72.89) Bipolar depression (296.50) (F31.9) Cigarette smoker (305.1) (F17.210) Hepatitis-C (070.70) (B19.20) Iron deficiency (280.9) (E61.1) Medication management (V58.69) (Z79.899) Obesity (278.00) (E66.9) Restless legs syndrome (333.94) (G25.81) Surgical History Problems History of Cervical loop electrosurgical excision Family History Mother Family history of Anxiety and depression Father Family history of hypertension (V17.49) (Z82.49) Maternal Grandmother Family history of cerebrovascular accident (CVA) (V17.1) (Z82.3) Social History Problems Alcohol use (V49.89) (Z72.89) Cigarette smoker (305.1) (F17.210) Current every day smoker (305.1) (F17.200) History of heroin use (305.53) (Z87.898) 4 MO (more content not included)... Normal [facility] Clinical Summary-RTFon 06-21 Clinical Summary-RTF Clinical Summary Patient Details for LYLE FLYNN Preferred Name Female Sex [id number] [place], [address] Address [place] 1990 Born White Race Non- or Ethnicity Today's Appointment Nathan Barlow MD Provider 22 Jun 2019 10:20 AM Appointment Treatment Plans Labs/Procedure/Imaging: ? IO Liver Ultrasound; To Be Done: 22 Jun 2019 ? Ultrasound Liver; To Be Done: 22 Jun 2019 Follow-ups/Referrals: ? Hepatology Follow-Up; To Be Done: 22 Jun 2019 Interventions Labs/Procedure/Imaging: ? Alcohol, Urine; To Be Done: 22 Jun 2019 ? Alpha Fetoprotein, Serum; To Be Done: 22 Jun 2019 ? Bbeji-7-Lcaoikyafuw, Serum; To Be Done: 22 Jun 2019 ? Anti Nuclear Antibody (without TED Panel); To Be Done: 22 Jun 2019 ? Antimitochondrial Ab; To Be Done: 22 Jun 2019 ? Ceruloplasmin, Serum; To Be Done: 22 Jun 2019 ? Drug Screen, Urine With Reflex To Confirmation; To Be Done: 22 Jun 2019 ? HCV Fibrosure; To Be Done: 22 Jun 2019 ? HCV PCR With Genotype Reflex; To Be Done: 22 Jun 2019 ? Hepatitis A Antibody, Total; To Be Done: 22 Jun 2019 ? Hepatitis B Core Antibody, Total; To Be Done: 22 Jun 2019 ? PT/INR; To Be Done: 22 Jun 2019 ? Smooth Muscle Antibody Screen; To Be Done: 22 Jun 2019 ? Urine Test; To Be Done: 22 Jun 2019 Plan: The the only way to get Hep C is to come in contact with blood from an infected person or contaminated blood. 1. Avoid sharing dental or shaving equipment 2. Cover bleeding wounds to prevent contact with others 3. Stop illicit drug injection 4. Do not donate blood 5. Condoms are not needed in monogamous relationships because it is low risk transmission through sex 6. Avoid alcohol intake 7. If applicable, obtain hepatitis A and B vaccine HCV is NOT spread by sneezing, hugging, holding hands, coughing, sharing utensils or drinking glasses, or through food or water. HAVE LABS HAVE ULTRASOUND HAVE FIBROSCAN RETURN IN 6 WEEKS Reason for Visit Health Issues Reviewed : Normal [facility] Initial Visit (Gastroenterol ogy)on 06-22-2019 Initial Visit (Gastroenterology) Diagnoses/Problems Assessed Hepatitis-C (070.70) (B19.20) Orders Hepatitis-C Alcohol, Urine; Status:Active; Requested for:22Jun2019; Perform:Lab Services - Lab To Draw (Non-Blood Test); Due:20Sep2019;Ordered; For:Hepatitis-C; Ordered By:Nathan Barlow; Hepatology Follow-Up Outpatient Follow-up AFTER TESTING Status: Hold For - Scheduling Requested for: 22Jun2019 Ordered; For: Hepatitis-C; Ordered By: Nathan Barlow Performed: Due: 20Sep2019 Alpha Fetoprotein, Serum; Specimen Source:Blood (BLD); Status:Active; Requested for:22Jun2019; Perform:Lab Services - Lab To Draw (Blood Test); Due:20Sep2019;Ordered; For:Hepatitis-C; Ordered By:Nathan Barlow; Kutrh-3-Zdggmmajkfj, Serum; Specimen Source:Blood (BLD); Status:Active; Requested for:22Jun2019; Perform:Lab Services - Lab To Draw (Blood Test); Due:20Sep2019;Ordered; For:Hepatitis-C; Ordered By:Nathan Barlow; Anti Nuclear Antibody (without TED Panel); Specimen Source:Blood (BLD); Status:Active; Requested for:22Jun2019; Perform:Lab Services - Lab To Draw (Blood Test); Due:20Sep2019;Ordered; For:Hepatitis-C; Ordered By:Nathan Barlow; Antimitochondrial Ab; Specimen Source:Blood (BLD); Status:Active; Requested for:22Jun2019; Perform:Lab Services - Lab To Draw (Blood Test); Due:20Sep2019;Ordered; For:Hepatitis-C; Ordered By:Nathan Barlow; Ceruloplasmin, Serum; Specimen Source:Blood (BLD); Status:Active; Requested for:22Jun2019; Perform:Lab Services - Lab To Draw (Blood Test); Due:20Sep2019;Ordered; For:Hepatitis-C; Ordered By:Nathan Barlow; Drug Screen, Urine With Reflex To Confirmation; Status:Active; Requested for:22Jun2019; Perform:Lab Services - Lab To Draw (Non-Blood Test); Due:20Sep2019;Ordered; For:Hepatitis-C; Ordered By:Nathan Barlow; HCV Fibrosure; Status:Active; Requested for:22Jun2019; Perform:Lab Services - Lab To Draw (Blood Test); Due:20Sep2019;Ordered; For:Hepatitis-C; Ordered By:Nathan Barlow; HCV PCR With Genotype Reflex; Specimen Source:Blood (BLD); Status:Active; Requested for:22Jun2019; Perform:Lab Services - Lab To Draw (Blood Test); Due:20Sep2019;Ordered; For:Hepatitis-C; Ordered By:Nathan Barlow; Hepatitis A Antibody, Total; Specimen Source:Blood (BLD); Status:Active; Requested for:22Jun2019; Perform:Lab Services - Lab To Draw (Blood Test); Due:20Sep2019;Ordered; For:Hepatitis-C; Ordered By:Nathan Barlow; Hepatitis B Core Antibody, Total; Specimen Source:Blood (BLD); Status:Active; Requested for:22Jun2019; Perform:Lab Services - Lab To Draw (Blood Test); Due:20Sep2019;Ordered; For:Hepatitis-C; Ordered By:Nathan Barlow; IO Liver Ultrasound; Status:Hold For - Scheduling; Requested for:22Jun2019; Perform:In Office; Order Comments:FIBROSCAN; Due:20Sep2019;Ordered; For:Hepatitis-C; Ordered By:Nathan Barlow; Radiologist to Determine Optimal Study : Y What are the patient's signs and symptoms? : HCV PT/INR; Status:Active; Requested for:22Jun2019; Perform:Lab Services - Lab To Draw (Blood Test); Due:20Sep2019;Ordered; For:Hepatitis-C; Ordered By:Nathan Barlow; Smooth Muscle Antibody Screen; Specimen Source:Blood (BLD); Status:Active; Requested for:22Jun2019; Perform:Lab Services - Lab To Draw (Blood Test); Due:20Sep2019;Ordered; For:Hepatitis-C; Ordered By:Nathan Barlow; Ultrasound Liver; Status:Hold For - Scheduling; Requested for:22Jun2019; Perform:[facility]; Due:20Sep2019;Ordered; For:Hepatitis-C; Ordered By:Nathan Barlow; Radiologist to Determine Optimal Study : Y What are the patient's signs and symptoms? : HCV Urine Test; Status:Active; Requested for:22Jun2019; Perform:Lab Services - Lab To Draw (Non-Blood Test); Due:20Sep2019;Ordered; For:Hepatitis-C; Ordered By:Nathan Barlow; Patient Discussion/Summary The the only way to get Hep C is to come in contact with blood from an infected person or contaminated blood. 1. Avoid sharing dental or shaving equipment 2. Cover bleeding wounds to prevent contact with others 3. Stop illicit drug injection 4. Do not donate blood 5. Condoms are not needed in monogamous relationships because it is low risk transmission through sex 6. Avoid alcohol intake 7. If applicable, obtain hepatitis A and B vaccine HCV is NOT spread by sneezing, hugging, holding hands, coughing, sharing utensils or drinking glasses, or through food or water. HAVE LABS HAVE ULTRASOUND HAVE FIBROSCAN RETURN IN 6 WEEKS Provider Impressions This patient has chronic Hepatitis C infection with no evidence of advanced fibrosis. We discussed the natural history of hepatitis C and ways to [facility] Office Visit (Internal Medic ine)on 06-10-2019 Follow-up visit Diagnoses/Problems Assessed Medication management (V58.69) (Z79.899) Cigarette smoker (305.1) (F17.210) Bipolar depression (296.50) (F31.9) Hepatitis-C (070.70) (B19.20) Restless legs syndrome (333.94) (G25.81) Anxiety (300.00) (F41.9) Alcohol use (V49.89) (Z72.89) Orders Bipolar depression Renew: ARIPiprazole 5 MG Oral Tablet; TAKE 1 TABLET DAILY Rx By: Nini Wolf; Dispense: 90 Days ; #:90 Tablet; Refill: 3; For: Bipolar depression; LISA = N; Verified Transmission to [facility]; Last Updated By: Vijay Antonio; 05/20/2019 4:28:24 PM Medication management CONTROLLED MEDICATION AGREEMENT ; every 1 year; Next 16Jan2020; Status:Active For: 'Medication management'Ordered By: 'PRIMARY ASHL03 RN1, [id number]' URINE DRUG TOXICOLOGY ; every 1 year; Next 18Feb2020; Status:Active For: 'Medication management'Ordered By: 'PRIMARY ASHL03 RN1, [id number]' Restless legs syndrome Renew: Gabapentin 400 MG Oral Capsule; TAKE 1 CAPSULE 3 TIMES DAILY Rx By: Nini Wolf; Dispense: 30 Days ; #:90 Capsule; Refill: 2; For: Restless legs syndrome; LISA = N; Verified Transmission to [facility]; Msg to Pharmacy: OARRS REVIEWED. VOID SCRIPT AND REFILLS 90 DAYS AFTER PRESCRIBING DATE; Last Updated By: [email or web address]; 05/20/2019 4:28:25 PM SocHx: Cigarette smoker Start: Albuterol Sulfate HFA 108 (90 Base) MCG/ACT Inhalation Aerosol Solution; INHALE 2 PUFFS Every 6 hours PRN SOB/WHEEZING Rx By: Nini Wolf; Dispense: 30 Days ; #:1 X 6.7 GM Inhaler; Refill: 5; For: SocHx: Cigarette smoker; LISA = N; Verified Transmission to [facility]; Last Updated By: [email or web address]; 05/20/2019 4:28:23 PM Tobacco Use Screening; Status:Complete; Done: 20May2019 Perform:Not Applicable;Ordered; For:SocHx: Cigarette smoker; Ordered By:Nini Wolf; Start: Chantix 1 MG Oral Tablet; Take 1 tablet twice daily Rx By: Nini Wolf; Dispense: 30 Days ; #:60 Tablet; Refill: 4; For: SocHx: Cigarette smoker; LISA = N; Verified Transmission to [place] [address]; Msg to Pharmacy: TO START AFTER STARTER PACK; Last Updated By: [email or web address]; 05/20/2019 4:28:22 PM Start: Chantix Starting Month Lewis 0.5 MG X 11 AND 1 MG X 42 Oral Tablet; TAKE DIRECTED PER PACKAGE INSTRUCTIONS Rx By: Nini Wolf; Dispense: 0 Days ; #:1 X 53 Tablet Pack; Refill: 0; For: SocHx: Cigarette smoker; LISA = N; Verified Transmission to [facility]; Last Updated By: [email or web address]; 05/20/2019 4:28:24 PM Patient Discussion/Summary F/U 3 MONTHS GABAPENTIN REFILL Provider Impressions In light of the current pandemic related to Coronavirus causing COVID-19 illness, and in accordance with CDC guidelines which encourage social distancing, I have spoken with my patient via telemedicine. They have not had any changes to their medication, dosage, or symptomatology which would necessitate an in-person visit. I have personally reviewed the OARRS report for this patient. This report is scanned into the electronic medical record. I have considered the risks of abuse, dependence, addiction and diversion. My patient is aware that they will need a follow-up visit (either in-person or virtually) in another 90 days for continued medications. Further, my patient is aware that when this acute crisis has lifted, they will be expected to return for an in-person visit and all elements of guidelines in order to continue this medication. I HAVE REVIEWED THE OARRS, WHICH WAS APPROPRIATE. I HAVE EVALUATED THE RISKS OF ABUSE, ADDICTION, DIVERSION, AND DEPENDENCE. PRESCRIBED MEDICATION SEEMS APPROPRIATE FOR DOCUMENTED DIAGNOSIS. I advised the patients to stop smoking. The detailed discussion are as follows: 1. Set your Quit Day Choose a date within the next seven days when youll quit smoking thats now your Quit Day. Use the time until your Quit Day to prepare and to gradually cut down on the number of cigarettes you smoke. 2. Choose your method for quitting There are three ways to quit smoking. You can choose one or use them in combination whatever you think will work best for you. Cold turkey. Stop smoking all at once on your Quit Day. This method does not prolong the quitting process. Cut down the number of cigarettes you smoke each day until you stop smoking completely. For example, if you smoke 20 cigarettes each day, cut down to 10 per day for two to three days. Next, cut it down to five cigarettes for two to three days. Then on your Quit Day, stop smoking completely. Smoke only part of each cigarette, reducing the amount until you stop smoking completely. Count how many puffs you normally take from each cigarette, then reduce the number of puffs every two to three days. On your Quit Day, stop smoking completely. 3. Do your research and decide if youll need medicines to help you quit (Nicotine replacement patches, Zyban, or Chanix) 4. Make a plan for your Quit Day 5. And finally, quit smoking for good on your Quit Day! I spent 10 (more content not included)... Normal [facility] Metabolic Panelon 02-17-2019 Creatinine [Mass/Vol] 88.3 mg/dL [facility] Work Phone: Comment on above: A urine creatinine r esult >= 20 mg/dL is considered valid without suspicion of dilution. Samples with results below this range will automatically reflex to specific gravity testing to verify specimen integrity. Otheron 02-17-2019 1-Hydroxymidazolam Confirm (U) [Mass/Vol] <25 Cutoff <25 [facility] Work Phone: 9-Ghiuvasrkh-7,5-Dime thyl-3,3-Diphenylpyrr olidine (EDDP) Confirm (U) [Mass/Vol] <25 Cutoff <25 [facility] Work Phone: Comment on above: The performance kareem acteristics of the Methadone Confirmation, Urine has been validated by the individual laboratory site where testing is performed. It has not been cleared or approved by the FDA. However the FDA has determined that such clearance or approval is not necessary. Our Laboratory is certified under the Clinical Laboratory Improvement Amendments of 1988 (CLIA) as qualified to perform high complexity clinical laboratory testing. 6-Monoacetylmorphine (6-JACLYN) Confirm (U) [Mass/Vol] <25 Cutoff <25 [facility] Work Phone: 7-Aminoclonazepam Confirm (U) [Mass/Vol] <25 Cutoff <25 [facility] Work Phone: Alpha hydroxyalprazolam Confirm (U) [Mass/Vol] <25 Cutoff <25 [facility] Work Phone: Alprazolam Confirm (U) [Mass/Vol] <25 Cutoff <25 [facility] Work Phone: Amphetamines Screen Ql (U) Negative NEGATIVE [facility] Work Phone: Comment on above: CUTOFF LEVEL: 500 NG /ML Cross-reactivity has been reported with high concentrations of the following drugs: buproprion, chloroquine, chlorpromazine, ephedrine, mephentermine, fenfluramine, phentermine, phenylpropanolamine, pseudoephedrine, and propranolol. Benzoylecgonine Screen Ql (U) Negative NEGATIVE [facility] Work Phone: Comment on above: CUTOFF LEVEL: 150 NG /ML Chlordiazepoxide Confirm (U) [Mass/Vol] <25 Cutoff <25 [facility] Work Phone: Clonazepam Confirm (U) [Mass/Vol] <25 Cutoff <25 -[facility] Work Phone: Codeine Confirm (U) [Mass/Vol] <25 Cutoff <25 -[facility] Work Phone: Diazepam Confirm (U) [Mass/Vol] <25 Cutoff <25 -[facility] Work Phone: Fentanyl Confirm (U) [Mass/Vol] <2.5 Cutoff<2.5 -[facility] Work Phone: Hydrocodone Confirm (U) [Mass/Vol] <25 Cutoff <25 [facility] Work Phone: Hydromorphone Confirm (U) [Mass/Vol] <25 Cutoff <25 [facility] Work Phone: Lorazepam Confirm (U) [Mass/Vol] <25 Cutoff <25 -[facility] Work Phone: Methadone Confirm (U) [Mass/Vol] <25 Cutoff <25 -[facility] [facility] Work Phone: Midazolam Confirm (U) [Mass/Vol] <25 Cutoff <25 -[facility] Work Phone: Morphine Confirm (U) [Mass/Vol] <25 Cutoff <25 -[facility] Work Phone: Nordiazepam Confirm (U) [Mass/Vol] <25 Cutoff <25 MP-[facility] Work Phone: Norfentanyl Confirm (U) [Mass/Vol] <2.5 Cutoff<2.5 -[facility] Work Phone: Comment on above: The performance kareem acteristics of the Fentanyl Confirmation, Urine has been validated by the individual laboratory site where testing is performed. It has not been cleared or approved by the FDA. However the FDA has determined that such clearance or approval is not necessary. Our Laboratory is certified under the Clinical Laboratory Improvement Amendments of 1988 (CLIA) as qualified to perform high complexity clinical laboratory testing. Norhydrocodone Confirm (U) [Mass/Vol] <25 Cutoff <25 -[facility] Work Phone: Noroxycodone Confirm (U) [Mass/Vol] <25 Cutoff <25 [facility] Work Phone: Nortramadol (U) [Mass/Vol] <25 Cutoff <25 [facility] Work Phone: Comment on above: The performance kareem acteristics of the Tramadol Confirmation, Urine has been validated by the individual laboratory site where testing is performed. It has not been cleared or approved by the FDA. However the FDA has determined that such clearance or approval is not necessary. Our Laboratory is certified under the Clinical Laboratory Improvement Amendments of 1988 (CLIA) as qualified to perform high complexity clinical laboratory testing. Oxazepam Confirm (U) [Mass/Vol] <25 Cutoff <25 [facility] Work Phone: Oxycodone Confirm (U) [Mass/Vol] <25 Cutoff <25 [facility] Work Phone: Oxymorphone Confirm (U) [Mass/Vol] <25 Cutoff <25 [facility] Work Phone: Comment on above: The performance kareem acteristics of the Opiate Confirmation, Urine has been validated by the individual laboratory site where testing is performed. It has not been cleared or approved by the FDA. However the FDA has determined that such clearance or approval is not necessary. Our Laboratory is certified under the Clinical Laboratory Improvement Amendments of 1988 (CLIA) as qualified to perform high complexity clinical laboratory testing. Temazepam Confirm (U) [Mass/Vol] <25 Cutoff <25 -[facility] Work Phone: Comment on above: The performance kareem acteristics of the Benzodiazepine Confirmation, Urine has been validated by the individual laboratory site where testing is performed. It has not been cleared or approved by the FDA. However the FDA has determined that such clearance or approval is not necessary. Our Laboratory is certified under the Clinical Laboratory Improvement Amendments of 1988 (CLIA) as qualified to perform high complexity clinical laboratory testing. Tramadol Confirm (U) [Mass/Vol] <25 Cutoff <25 -[facility] Work Phone: Zolpidem (U) [Mass/Vol] <25 Cutoff <25 [facility] Work Phone: SEE BELOW [facility] Work Phone: Comment on above: Drug screen results are presumptive and should not be used to assess compliance with prescribed medication. Definitive confirmatory drug testing has been added to this sample for any positive screen result and will be reported separately. .Toxicology screening results are reported qualitatively. The concentration must be greater than or equal to the cutoff to be reported as positive. The concentration at which the screening test can detect an individual drug or metabolite varies. The absence of expected drug(s) and/or drug metabolite(s) may indicate non-compliance, inappropriate timing of specimen collection relative to drug administration, poor drug absorption, diluted/adulterated urine, or limitations of testing. For medical purposes only; not valid for forensic use. .Interpretive questions should be directed to the laboratory medical directors. <25 Cutoff <25 [facility] Work Phone: Comment on above: The performance kareem acteristics of the Zolpidem Confirmation, Urine has been validated by the individual laboratory site where testing is performed. It has not been cleared or approved by the FDA. However the FDA has determined that such clearance or approval is not necessary. Our Laboratory is certified under the Clinical Laboratory Improvement Amendments of 1988 (CLIA) as qualified to perform high complexity clinical laboratory testing. Urinalysison 02-17-2019 Barbiturates Screen Ql (U) Negative NEGATIVE [facility] Work Phone: Comment on above: CUTOFF LEVEL: 200 NG /ML Cannabinoids Screen Ql (U) Negative NEGATIVE [facility] Work Phone: Comment on above: CUTOFF LEVEL: 50 NG/ ML Phencyclidine Ql (U) Negative NEGATIVE [facility] Work Phone: Comment on above: CUTOFF LEVEL: 25 NG/ ML Cross-reactivity has been reported with dextromethorphan. Auto Diffon 11-14-2018 Basophils (Bld) [#/Vol] 0.1 E3/mcL Normal 0.0-0.2 [facility] Comment on above: Order Comment: Order Added by Discern Expert. Performed By: #### 2 [id number] #### FABBY [employer] [address] [place] [address] Basophils/100 WBC (Bld) 1.0 % Normal 0.0-2.0 [facility] Comment on above: Order Comment: Order Added by Discern Expert. Performed By: #### 2 [id number] #### FABBY [employer] [address] [place] [address] Eos Absolute 0.1 E3/mcL Normal 0.0-0.7 [facility] Comment on above: Order Comment: Order Added by Discern Expert. Performed By: #### 2 [id number] #### FABBY [employer] [address] [place] [address] Eosinophils/100 WBC (Bld) 1.2 % Normal 0.0-11.0 [facility] Comment on above: Order Comment: Order Added by Discern Expert. Performed By: #### 2 [id number] #### FABBY [employer] [address] [place] [address] Lymphocytes (Bld) [#/Vol] 3.2 E3/mcL Normal 1.2-3.4 [facility] Comment on above: Order Comment: Order Added by Discern Expert. Performed By: #### 2 [id number] #### FABBY [employer] [address] [place] [address] Lymphocytes/100 WBC (Bld) 36.5 % Normal 20.0-55.0 [facility] Comment on above: Order Comment: Order Added by Discern Expert. Performed By: #### 2 [id number] #### FABBY [employer] [address] [place] [address] [place] Absolute 0.5 E3/mcL Normal 0.0-0.7 [facility] Comment on above: Order Comment: Order Added by Discern Expert. Performed By: #### 2 [id number] #### FABBY [employer] [address] [place] [address] Monocytes/100 WBC (Bld) 5.7 % Normal 0.0-10.0 [facility] Comment on above: Order Comment: Order Added by Discern Expert. Performed By: #### 2 [id number] #### FABBY [employer] [address] [place] [address] Neutro Absolute 4.9 E3/mcL Normal 1.4-6.5 [facility] Comment on above: Order Comment: Order Added by Discern Expert. Performed By: #### 2 [id number] #### FABBY [employer] [address] [place] [address] Neutro Auto 55.6 % Normal 37.0-75.0 [facility] Comment on above: Order Comment: Order Added by Discern Expert. Performed By: #### 2 [id number] #### FABBY [employer] [address] [place] [address] BhCG Qualon 11-14-2018 Beta hCG Ql Negative Normal Negative [facility] Comment on above: Performed By: #### 2 [id number] #### FABBY Chemistry Manual Subsection [address] [place] [address] CBC w/ Auto Diffon 9 Erythrocyte distribution width (RBC) [Ratio] 14.5 % Normal 11.5-14.5 [facility] Comment on above: Performed By: #### 2 [id number] #### FABBY [employer] [address] [place] [address] Hematocrit (Bld) [Volume fraction] 44.6 % Normal 36.0-48.0 [facility] Comment on above: Performed By: #### 2 [id number] #### FABBY [employer] [address] [place] [address] Hemoglobin (Bld) [Mass/Vol] 15.3 g/dL Normal 12.0-16.0 [facility] Comment on above: Performed By: #### 2 [id number] #### FABBY [employer] [address] [place] [address] MCH (RBC) [Entitic mass] 31.3 pg High 27.0-31.0 [facility] Comment on above: Performed By: #### 2 [id number] #### FABBY [employer] [address] [place] [address] MCHC (RBC) [Mass/Vol] 34.2 g/dL Normal 33.0-37.0 [facility] Comment on above: Performed By: #### 2 [id number] #### FABBY [employer] [address] [place] [address] MCV (RBC) [Entitic vol] 91.4 fL Normal 78.0-100.0 [facility] Comment on above: Performed By: #### 2 [id number] #### FABBY [employer] [address] [place] [address] Platelet mean volume (Bld) [Entitic vol] 8.4 fL Normal 7.4-11.0 [facility] Comment on above: Performed By: #### 2 [id number] #### FABBY [employer] [address] [place] [address] Platelets (Bld) [#/Vol] 285 E3/mcL Normal 130-400 [facility] Comment on above: Performed By: #### 2 [id number] #### FABBY [employer] [address] [place] [address] RBC (Bld) [#/Vol] 4.88 E6/mcL Normal 3.90-5.40 [facility] Comment on above: Performed By: #### 2 [id number] #### FABBY [employer] [address] [place] [address] WBC (Bld) [#/Vol] 8.8 E3/mcL Normal 3.6-11.0 [facility] Comment on above: Performed By: #### 2 [id number] #### FABBY [employer] [address] [place] [address] CMPon 11-14-2018 Albumin [Mass/Vol] 4.4 g/dL Normal 3.4-5.0 [facility] Comment on above: Performed By: #### 2 [id number] #### FABBY [employer] [address] [place] [address] Albumin/Globulin [Mass ratio] 1.3 {ratio} Normal 1.1-1.9 [facility] Comment on above: Performed By: #### 2 [id number] #### FABBY [employer] [address] [place] [address] Alk Phos 82 Int._Unit/L Normal 33-110 [facility] Comment on above: Performed By: #### 2 [id number] #### FABBY [employer] [address] [place] [address] ALT [Catalytic activity/Vol] 41 Int._Unit/L Normal 7-45 [facility] Comment on above: Performed By: #### 2 [id number] #### FABBY [employer] [address] [place] [address] Anion gap [Moles/Vol] 14 mmol/L Normal 10-20 [facility] Comment on above: Performed By: #### 2 [id number] #### FABBY [employer] [address] [place] [address] AST [Catalytic activity/Vol] 51 Int._Unit/L High 9-39 [facility] Comment on above: Performed By: #### 2 [id number] #### FABBY [employer] [address] [place] [address] Bili Total 0.31 mg/dL Normal 0.00-1.20 [facility] Comment on above: Performed By: #### 2 [id number] #### FABBY [employer] [address] [place] [address] Calcium [Mass/Vol] 8.9 mg/dL Normal 8.6-10.3 [facility] Comment on above: Performed By: #### 2 [id number] #### FABBY [employer] [address] [place] [address] Chloride [Moles/Vol] 107 mmol/L Normal 98-107 [facility] Comment on above: Performed By: #### 2 [id number] #### FABBY [employer] [address] [place] [address] CO2 [Moles/Vol] 22.0 mmol/L Normal 21.0-32.[address] [facility] Comment on above: Performed By: #### 2 [id number] #### FABBY [employer] [address] [place] [address] Creatinine [Mass/Vol] 0.8 mg/dL Normal 0.5-1.1 [facility] Comment on above: Performed By: #### 2 [id number] #### FABBY [employer] [address] [place] [address] Globulin (S) [Mass/Vol] 3.0 g/dL Normal 2.0-4.0 [facility] Comment on above: Performed By: #### 2 [id number] #### FABBY [employer] [address] [place] [address] Glucose [Mass/Vol] 82 mg/dL Normal 70-99 [facility] Comment on above: Performed By: #### 2 [id number] #### FABBY [employer] [address] [place] [address] Potassium [Moles/Vol] 4.0 mmol/L Normal 3.5-5.3 [facility] Comment on above: Performed By: #### 2 [id number] #### FABBY [employer] [address] [place] [address] Protein [Mass/Vol] 7.7 g/dL Normal 6.4-8.2 [facility] Comment on above: Performed By: #### 2 [id number] #### FABBY [employer] [address] [place] [address] Sodium [Moles/Vol] 139 mmol/L Normal 136-145 [facility] Comment on above: Performed By: #### 2 [id number] #### FABBY [employer] [address] [place] [address] Urea nitrogen [Mass/Vol] 8 mg/dL Normal 6-23 [facility] Comment on above: Performed By: #### 2 [id number] #### FABBY [employer] [address] [place] [address] Urea nitrogen/Creatinine [Mass ratio] 10.0 ratio Normal 5.4-30.0 [facility] Comment on above: Performed By: #### 2 [id number] #### FABBY [employer] [address] [place] [address] Ethanolon 11-14-2018 Ethanol [Mass/Vol] 151 mg/dL Critically abnormal <=10 [facility] Comment on above: Result Comment: Crit ical Result (s) Called to and read back by: JEFFREY ROBISON at: 11/13/2018 23:04:17 by:KEEGAN Performed By: #### 2 [id number] #### FABBY [employer] [address] [place] [address] Magnesiumon 11-14-2018 Magnesium [Mass/Vol] 2.3 mg/dL Normal 1.6-2.4 [facility] Comment on above: Performed By: #### 2 [id number] #### FABBY [employer] [address] [place] [address] U Drug Screenon 11-14-2018 U Amph Scr Negative Normal Negative [facility] Comment on above: Performed By: #### 2 [id number] #### FABBY [employer] [address] [place] [address] U Janell Scr Negative Normal Negative [facility] Comment on above: Performed By: #### 2 160292 #### FABBY [employer] [address] [place] [address] U Benzodia Scr Negative Normal Negative [facility] Comment on above: Performed By: #### 2 [id number] #### FABBY [employer] [address] [place] [address] U Cannab Scr Negative Normal Negative [facility] Comment on above: Performed By: #### 2 [id number] #### FABBY [employer] [address] [place] [address] U Cocaine Scr Negative Normal Negative [facility] Comment on above: Performed By: #### 2 594775 #### FABBY [employer] [address] [place] [address] U Opiate Scr Negative Normal Negative [facility] Comment on above: Performed By: #### 2 [id number] #### FABBY [employer] [address] [place] [address] U PCP Scr Negative Normal Negative [facility] Comment on above: Performed By: #### 2 [id number] #### FABBY [employer] [address] [place] [address] UA Completeon 11-14-2018 Color (U) Yellow Normal Yellow [facility] Comment on above: Performed By: #### 8 [id number] #### FABBY Urinalysis Automated Subsection [address] [place] [address] Glucose (U) [Mass/Vol] Negative Normal Negative [facility] Comment on above: Performed By: #### 8 [id number] #### FABBY Urinalysis Automated Subsection [address] [place] [address] Ketones Ql (U) Negative Normal Negative [facility] Comment on above: Performed By: #### 8 [id number] #### FABBY Urinalysis Automated Subsection [facility] [place] [address] RBC (U) [#/Vol] 0-3 Normal 0-3 [facility] Comment on above: Performed By: #### 8 [id number] #### FABBY Urinalysis Automated Subsection [facility] [place] [address] UA Blood Negative Normal Negative [facility] Comment on above: Performed By: #### 8 [id number] #### FABBY Urinalysis Automated Subsection [facility] [place] [address] UA Bacteria 1+ /HPF Abnormal None [facility] Comment on above: Performed By: #### 8 [id number] #### FABBY Urinalysis Automated Subsection [address] [place] [address] UA Clarity SltCloudy Abnormal Clear [facility] Comment on above: Performed By: #### 8 [id number] #### FABBY Urinalysis Automated Subsection [facility] [place] [address] UA Leuk Est Negative Normal Negative [facility] Comment on above: Performed By: #### 8 [id number] #### FABBY Urinalysis Automated Subsection [address] [place] [address] UA Mucous Occasional Abnormal Trace [facility] Comment on above: Performed By: #### 8 [id number] #### FABBY Urinalysis Automated Subsection [address] [place] [address] UA Nitrite Negative Normal Negative [facility] Comment on above: Performed By: #### 8 [id number] #### FABBY Urinalysis Automated Subsection [address] [place] [address] UA pH 6.0 Normal 4.6-8.0 [facility] Comment on above: Performed By: #### 8 [id number] #### FABBY Urinalysis Automated Subsection [address] [place] [address] UA Protein Negative Normal Negative [facility] Comment on above: Performed By: #### 8 [id number] #### FABBY Urinalysis Automated Subsection [facility] [place] [address] UA Spec Grav 1.009 Normal 1.003-1.030 [facility] Comment on above: Performed By: #### 8 [id number] #### FABBY Urinalysis Automated Subsection [facility] [place] [address] UA Squam Epithelial 0-5 Normal 0-5 [facility] Comment on above: Performed By: #### 8 [id number] #### FABBY Urinalysis Automated Subsection [facility] [place] [address] UA Urobilinogen Negative Normal [facility] Comment on above: Result Comment: Due to a manufacturing issue, low positive urobilinogen results may be fasely positive. Correlate with urine bilirubin and additional clinical/laboratory findings to assess the risk of hemolytic anemia or liver disease. If clinically indicated, repeat testing with an alternate method is available by contacting the laboratory within 24 hours. Performed By: #### 8 [id number] #### FABBY Urinalysis Automated Subsection [facility] [place] [address] UA WBC 0-5 Normal 0-5 [facility] Comment on above: Performed By: #### 8 [id number] #### FABBY Urinalysis Automated Subsection [address] [place] [address] Urobilinogen Qn (U) Negative Normal Negative [facility] Comment on above: Performed By: #### 8 [id number] #### FABBY Urinalysis Automated Subsection [address] [place] [address] eGFRon 11-14-2018 GFR/1.73 sq M predicted among non-blacks MDRD (S/P/Bld) [Vol rate/Area] mL/min/{1.73_m2} Normal [facility] Comment on above: Order Comment: Order added by Discern Expert. Performed By: #### 1 [id number] #### FABBY [employer] [address] [place] [address] APTTon 11-01-2018 aPTT Coag (Bld) [Time] 20.7 s [facility], [place] Comment on above: PTT Therapeutic Range: 61.7-88.4 Therapeutic range corresponds to plasma heparin levels of 0.3-0.7 U/mL. CBC Auto Differentialon 10-13 Basophils (Bld) [#/Vol] 0.00 10*3/uL [place] Basophils/100 WBC (Bld) 0 % 0 - 2 % [place] Differential Type YES [place] Eosinophils (Bld) [#/Vol] 0.10 10*3/uL [place] Eosinophils/100 WBC (Bld) 1 % 0 - 5 % [place] Erythrocyte distribution width (RBC) [Ratio] 14.4 % 12.1 - 15.2 % [place] Hematocrit (Bld) [Volume fraction] 40.4 % 36 - 46 % [place] Hemoglobin (Bld) [Mass/Vol] 13.6 g/dL 12 - 16 g/dL [place] Interpretation and review of laboratory results Abnormal [place] Lymphocytes (Bld) [#/Vol] 2.50 10*3/uL [place] Lymphocytes/100 WBC (Bld) 23 % 15 - 40 % [place] MCH (RBC) [Entitic mass] 30.6 pg 26 - 34 pg [place] MCHC (RBC) [Mass/Vol] 33.7 g/dL 31 - 37 g/dL [place] MCV (RBC) [Entitic vol] 90.9 fL 80 - 100 fL [place] Monocytes (Bld) [#/Vol] 0.10 10*3/uL [place] Monocytes/100 WBC (Bld) 1 % Low 4 - 8 % [place] Platelet mean volume (Bld) [Entitic vol] NOT REPORTED 6 - 12 fL [place] Platelets (Bld) [#/Vol] NOT REPORTED [place] Platelets (Bld) [#/Vol] 188 10*3/uL [place] RBC (Bld) [#/Vol] 4.45 10*6/uL 4 - 5.2 m/uL [place] RBC morphology finding Nom (Bld) NOT REPORTED [place] Segmented neutrophils/100 WBC (Bld) 75 % 47 - 75 % [place] Segs Absolute 8.30 High [place] WBC (Bld) [#/Vol] 11.0 10*3/uL [place] WBC (Bld) [#/Vol] NOT REPORTED per 100 WBC [place] WBC Morphology NOT REPORTED [place] Comprehensive Metabolic Pane mary beth 11-01-2018 Albumin [Mass/Vol] 4.5 g/dL 3.5 - 5.2 g/dL [place] Albumin/Globulin [Mass ratio] NOT REPORTED [place] ALP [Catalytic activity/Vol] 80 U/L 35 - 104 U/L [place] ALT [Catalytic activity/Vol] 45 U/L High 5 - 33 U/L [place] Anion gap [Moles/Vol] 10 mmol/L 9 - 17 mmol/L [place] AST [Catalytic activity/Vol] 46 U/L High <32 [place] Bilirubin Ql (U) 0.33 mg/dL 0.3 - 1.2 mg/dL [place] Bun/Cre Ratio 18 [place] Calcium [Mass/Vol] 9.7 mg/dL 8.6 - 10. 4 mg/dL [place] Chloride [Moles/Vol] 100 mmol/L 98 - 10 7 mmol/L [place] CO2 [Moles/Vol] 25 mmol/L 20 - 31 mmol/L [place] Creatinine [Mass/Vol] 0.6 mg/dL 0.5 - 0.9 mg/dL [place] GFR >60 >60 mL/min [place] GFR Non- >60 >60 mL/min [place] GFR/1.73 sq M predicted among non-blacks MDRD (S/P/Bld) [Vol rate/Area] [place] Comment on above: Average GFR for 20-2 9 years old: 116 mL/min/1.73sq m Chronic Kidney Disease: <60 mL/min/1.73sq m Kidney failure: <15 mL/min/1.73sq m eGFR calculated using average adult body mass. Additional eGFR calculator available at: http://www.[employer].zulily/multiple_crcl_2012.htm GFR/1.73 sq M predicted among non-blacks MDRD (S/P/Bld) [Vol rate/Area] NOT REPORTED [place] Glucose [Mass/Vol] 87 mg/dL 70 - 99 mg/dL [place] Interpretation and review of laboratory results Abnormal [place] Potassium [Moles/Vol] 4.0 mmol/L 3.7 - 5.3 mmol/L [place] Protein [Mass/Vol] 8.2 g/dL 6.4 - 8.3 g/dL [place] Sodium [Moles/Vol] 135 mmol/L 135 - 144 mmol/L [place] Urea nitrogen [Mass/Vol] 11 mg/dL 6 - 20 mg/dL [place] D-dimer, quantitativeon 10-13 D-Dimer, Quant 0.52 High [place], [place] Comment on above: Elevated levels of D dimer can be seen in any state of coagulation activation including DVT, PE, arterial thrombosis, DIC, inflamatory disease, trauma, malignancy, sepsis, infection, hematoma, liver disease, post surgical state, , atherosclerosis, old age. When combined with a low clinical probability, a D dimer value of <0.50 mg/L is considered negative for DVT and PE (negative predictive value of 98%). Otheron 11-01-2018 Interpretation and review of laboratory results Abnormal [place] Immature granulocytes (Bld) [#/Vol] NOT REPORTED [place] Protime-INRon 11-01-2018 INR Coag (PPP) [Relative time] 1.0 {INR} [place] Comment on above: * THERAPY INDICATIONS * REFERENCE RANGES Pts not on anti-coagulants 1.0 - 1.5 INR Low risk pts on anti-coagulants 2.0 - 3.0 INR High risk pts on anti-coagulants 2.5 - 3.5 INR Prevention of atrial thrombo-embolism 3.0 - 4.5 INR PT Coag (PPP) [Time] 9.7 s [facility] [place] [place] Alcoholon 06-21-2018 Ethanol mass conc 0.165 G/dL Normal [facility] Comment on above: Performed By: #### A LCOH #### [facility] [address] [place] [address] Ethanol mass conc 188 mg/dL Normal [facility] Comment on above: Performed By: #### A LCOH #### [facility] [address] [place] [address] CBC With Platelet and Differ entialon 06-21-2018 Basophils #/vol (Bld) 0.1 10*3/uL Normal 0.0-0.2 [facility] Comment on above: Performed By: #### C BCWD #### [facility] [address] [place] [address] Basophils/100 WBC (Bld) 1.0 % Normal [facility] Comment on above: Performed By: #### C BCWD #### [facility] [address] [place] [address] Eosinophils #/vol (Bld) 0.0 10*3/uL Normal 0.0-0.7 [facility] Comment on above: Performed By: #### C BCWD #### [facility] [address] [place] [address] Eosinophils/100 WBC (Bld) 0.2 % Normal [facility] Comment on above: Performed By: #### C BCWD #### [facility] [address] [place] [address] Erythrocyte distribution width Ratio (RBC) 14.6 % Critically high 11.5-14.5 [facility] Comment on above: Performed By: #### C BCWD #### [facility] [address] [place] [address] Hematocrit Volume Fraction (Bld) 43.0 % Normal 37.0-47.0 [facility] Comment on above: Performed By: #### C BCWD #### [facility] [address] [place] [address] Hemoglobin mass conc (Bld) 14.6 g/dL Normal 12.0-16.0 [facility] Comment on above: Performed By: #### C BCWD #### [facility] [address] [place] [address] Lymphocytes #/vol (Bld) 3.7 10*3/uL Normal 1.0-4.8 [facility] Comment on above: Performed By: #### C BCWD #### [facility] [address] [place] [address] Lymphocytes/100 WBC (Bld) 50.2 % Normal [facility] Comment on above: Performed By: #### C BCWD #### [facility] [address] [place] [address] MCH Entitic mass (RBC) 30.3 pg Normal 27.0-31.3 [facility] Comment on above: Performed By: #### C BCWD #### [facility] [address] [place] [address] MCHC mass conc (RBC) 33.9 % Normal 33.0-37.0 [facility] Comment on above: Performed By: #### C BCWD #### [facility] [address] [place] [address] MCV Entitic volume (RBC) 89.4 fL Normal 82.0-100.0 [facility] Comment on above: Performed By: #### C BCWD #### [facility] [address] [place] [address] Monocytes #/vol (Bld) 0.3 10*3/uL Normal 0.2-0.8 [facility] Comment on above: Performed By: #### C BCWD #### [facility] [address] [place] [address] Monocytes/100 WBC (Bld) 3.5 % Normal [facility] Comment on above: Performed By: #### C BCWD #### [facility] [address] [place] [address] Neutrophils #/vol (Bld) 3.3 10*3/uL Normal 1.4-6.5 [facility] Comment on above: Performed By: #### C BCWD #### [facility] [address] [place] [address] Neutrophils/100 WBC (Bld) 45.1 % Normal [facility] Comment on above: Performed By: #### C BCWD #### [facility] [address] [place] [address] Platelets #/vol (Bld) 253 10*3/uL Normal 130-400 [facility] Comment on above: Performed By: #### C BCWD #### [facility] [address] [place] [address] RBC #/vol (Bld) 4.81 10*6/uL Normal 4.20-5.40 [facility] Comment on above: Performed By: #### C BCWD #### [facility] [address] [place] [address] WBC #/vol (Bld) 7.3 10*3/uL Normal 4.8-10.8 [facility] Comment on above: Performed By: #### C BCWD #### [facility] [address] [place] [address] Comprehensive Metabolic Pane mary beth 06-21-2018 Albumin mass conc 4.8 g/dL Critically high 3.5-4.6 [facility] Comment on above: Performed By: #### C MP #### [facility] [address] [place] [address] ALP enzyme act/vol 76 U/L Normal 40-130 [facility] Comment on above: Performed By: #### C MP #### [facility] [address] [place] [address] ALT enzyme act/vol 130 U/L Critically high 0-33 M [facility] Comment on above: Performed By: #### C MP #### [facility] [address] [place] [address] Anion gap molar conc 18 mmol/L Critically high 9-15 [facility] Comment on above: Performed By: #### C MP #### [facility] [address] [place] [address] AST enzyme act/vol 86 U/L Critically high 0-35 M [facility] Comment on above: Performed By: #### C MP #### [facility] [address] [place] [address] Bilirubin mass conc 0.3 mg/dL Normal 0.2-0.7 [facility] Comment on above: Performed By: #### C MP #### [facility] [address] [place] [address] Calcium mass conc 8.5 mg/dL Normal 8.5-9.9 [facility] Comment on above: Performed By: #### C MP #### [facility] [address] [place] [address] Chloride molar conc 105 mmol/L Normal 95-107 [facility] Comment on above: Performed By: #### C MP #### [facility] [address] [place] [address] CO2 molar conc 23 mmol/L Normal 20-31 [facility] Comment on above: Performed By: #### C MP #### [facility] [address] [place] [address] Creatinine mass conc 0.61 mg/dL Normal 0.50-0.90 [facility] Comment on above: Performed By: #### C MP #### [facility] [address] [place] [address] GFR/1.73 sq M predicted among blacks MDRD vol rate/area (S/P/Bld) mL/min/{1.73_m2} Normal >60 [facility] Comment on above: Result Comment: >60 mL/min/1.73m2 EGFR, calc. for ages 18 and older using the MDRD formula (not corrected for weight), is valid for stable renal function. Performed By: #### C MP #### [facility] [address] [place] [address] GFR/1.73 sq M.predicted MDRD vol rate/area mL/min/{1.73_m2} Normal >60 [facility] Comment on above: Result Comment: >60 mL/min/1.73m2 EGFR, calc. for ages 18 and older using the MDRD formula (not corrected for weight), is valid for stable renal function. Performed By: #### C MP #### [facility] [address] [place] [address] Globulin mass conc (S) 3.2 g/dL Normal 2.3-3.5 [facility] Comment on above: Performed By: #### C MP #### [facility] [address] [place] [address] Glucose mass conc 108 mg/dL Critically high 70-99 [facility] Comment on above: Performed By: #### C MP #### [facility] [address] [place] [address] Potassium molar conc 3.8 mmol/L Normal 3.4-4.9 [facility] Comment on above: Performed By: #### C MP #### [facility] [address] [place] [address] Protein mass conc 8.0 g/dL Normal 6.3-8.0 [facility] Comment on above: Performed By: #### C MP #### [facility] [address] [place] [address] Sodium molar conc 146 mmol/L Critically high 135-144 [facility] Comment on above: Performed By: #### C MP #### [facility] [address] [place] [address] Urea nitrogen mass conc 9 mg/dL Normal 6-20 [facility] Comment on above: Performed By: #### C MP #### [facility] [address] [place] [address] Lactic Acidon 06-21-2018 Lactate molar conc 2.3 mmol/L Critically high 0.5-2.2 M [facility] Comment on above: Performed By: #### L ACID #### [facility] [address] [place] [address] Troponinon 06-21-2018 Troponin I.cardiac mass conc ng/mL Normal 0.000-0.01 [facility] Comment on above: Result Comment: Meth odology by Troponin T. Performed By: #### T ROP #### [facility] [address] [place] [address] XR CHEST PORTABLEon 06-22-19 XR CHEST PORTABLE Portable chest radiograph History: Drug overdose Technique: AP portable view of the chest obtained. Comparison: None available Findings: The cardiomediastinal silhouette is within normal limits. No pneumothorax, pleural effusion, or focal consolidation. Osseous structures of the thorax appear intact. IMPRESSION: No acute intrathoracic process. Interpreted by: Eddie Dos Santos DO Signed by: Eddie Dos Santos DO 06/21/18 Final result Normal [facility] Vital Signs Date Time Vital Sign Value Performing Clinician Facility 03-04-2023 19:06-0500 Body height 154.94 cm DO Ari More Work Phone: [facility] 03-04-2023 19:06-0500 Body temperature 97.8 [degF] DO Ari More Work Phone: [facility] 03-04-2023 19:06-0500 Body weight 71 kg DO Ari More Work Phone: [facility] 03-04-2023 19:06-0500 Diastolic blood pressure 97 mm[Hg] DO Ari More Work Phone: [facility] 03-04-2023 19:06-0500 Heart rate 89 /min DO Ari Mroe Work Phone: [facility] 03-04-2023 19:06-0500 Respiratory rate 25 /min DO Ari More Work Phone: [facility] 03-04-2023 19:06-0500 SaO2% (BldA) [Mass fraction] 95 % DO Ari More Work Phone: [facility] 03-04-2023 19:06-0500 Systolic blood pressure 135 mm[Hg] DO Ari More Work Phone: [facility] 01-25-2023 06:21-0500 Diastolic blood pressure 68 mm[Hg] DO Ari More Work Phone: [facility] 01-25-2023 06:21-0500 Heart rate 88 /min DO Ari More Work Phone: [facility] 01-25-2023 06:21-0500 Respiratory rate 18 /min DO Ari More Work Phone: [facility] 01-25-2023 06:21-0500 SaO2% (BldA) [Mass fraction] 97 % DO Ari More Work Phone: [facility] 01-25-2023 06:21-0500 Systolic blood pressure 102 mm[Hg] DO Ari More Work Phone: [facility] 01-25-2023 01:01-0500 Body height 157.48 cm DO Ari More Work Phone: [facility] 01-25-2023 01:01-0500 Body temperature 98.9 [degF] DO Ari More Work Phone: [facility] 01-25-2023 01:01-0500 Body weight 65.77 kg DO Ari More Work Phone: [facility] 01-19-2023 12:00-0500 Diastolic blood pressure 89 mm[Hg] DO Ari More Work Phone: [facility] 01-19-2023 12:00-0500 Heart rate 82 /min DO Ari More Work Phone: [facility] 01-19-2023 12:00-0500 Respiratory rate 22 /min DO Ari More Work Phone: [facility] 01-19-2023 12:00-0500 SaO2% (BldA) [Mass fraction] 99 % DO Ari More Work Phone: [facility] 01-19-2023 12:00-0500 Systolic blood pressure 143 mm[Hg] DO Ari More Work Phone: [facility] 01-19-2023 10:33-0500 Body height 161.29 cm DO Ari More Work Phone: [facility] 01-19-2023 10:33-0500 Body temperature 97.7 [degF] DO Ari More Work Phone: [facility] 01-19-2023 10:33-0500 Body weight 71 kg DO Ari More Work Phone: [facility] 01-08-2023 13:57-0500 Body height 154.94 cm [employer] Amanda Robuck Work Phone: [facility] 01-08-2023 13:57-0500 Body temperature 98.1 [degF] [employer] Amanda Robuck Work Phone: [facility] 01-08-2023 13:57-0500 Body weight 71.2 kg [employer] Amanda Robuck Work Phone: [facility] 01-08-2023 13:57-0500 Diastolic blood pressure 88 mm[Hg] [employer] Amanda Robuck Work Phone: [facility] 01-08-2023 13:57-0500 Heart rate 100 /min [employer] Amanda Robuck Work Phone: [facility] 01-08-2023 13:57-0500 Respiratory rate 20 /min [employer] Amanda Robuck Work Phone: [facility] 01-08-2023 13:57-0500 SaO2% (BldA) [Mass fraction] 98 % LOGAN Barrios Work Phone: [facility] 01-08-2023 13:57-0500 Systolic blood pressure 149 mm[Hg] LOGAN Barrios Work Phone: [facility] 01-06-2023 14:00-0500 Heart rate 58 /min Gunnar EDISON [facility] 01-06-2023 14:00-0500 Hourly Rounding Gunnar EDISON [facility] 01-06-2023 14:00-0500 Promise to Return Gunnar EDISON [facility] 01-06-2023 14:00-0500 Respiratory rate 12 /min Gunnar EDISON [facility] 01-06-2023 14:00-0500 SaO2% (BldA) [Mass fraction] 98 % Gunnar EDISON [facility] 01-06-2023 13:20-0500 Hourly Rounding Gunnar EDISON [facility] 01-06-2023 13:20-0500 Promise to Return Gunnar EDISON [facility] 01-06-2023 13:00-0500 Heart rate 56 /min Gunnar EDISON [facility] 01-06-2023 12:27-0500 Hourly Rounding Gunnar EDISON [facility] 01-06-2023 12:27-0500 Promise to Return Gunnar EDISON [facility] 11-26-2023 12:00-0500 Diastolic blood pressure 88 mm[Hg] Gunnar EDISON [facility] 01-06-2023 12:00-0500 Heart rate 66 /min Gunnarmalorie JENSENSLIN [facility] 01-06-2023 12:00-0500 Mean blood pressure 111 mm[Hg] Gunnar EDISON [facility] 01-06-2023 12:00-0500 SaO2% (BldA) [Mass fraction] 97 % Gunnarmalorie JENSENSLIN [facility] 01-06-2023 12:00-0500 Systolic blood pressure 158 mm[Hg] Gunnarmalorie JENSENSLIN [facility] 01-06-2023 10:00-0500 Diastolic blood pressure 105 mm[Hg] Gunnarmalorie JENSENSLIN [facility] 01-06-2023 10:00-0500 Mean blood pressure 117 mm[Hg] Gunnarmalorie JENSENSLIN [facility] 01-06-2023 10:00-0500 Systolic blood pressure 141 mm[Hg] Gunnarmalorie JENSENSLIN [facility] 01-06-2023 09:00-0500 Diastolic blood pressure 99 mm[Hg] Gunnarmalorie JENSENSLIN [facility] 01-06-2023 09:00-0500 Systolic blood pressure 153 mm[Hg] Gunnar EDISON [facility] 01-06-2023 08:00-0500 Body temperature 97.7 [degF] Gunnar EDISON [facility] 01-06-2023 04:00-0500 Body temperature 97.34 [degF] Gunnar EDISON [facility] 01-06-2023 00:00-0500 Body temperature 97.52 [degF] Gunnar HUMPHREYLIN [facility] 2023 07:08-0500 Heart rate 73 /min Gunnar JENSENSLIN [facility] 2023 05:54-0500 Blood Pressure Location Gunnarmalorie HUMPHREYLIN [facility] 2023 05:54-0500 Heart rate 72 /min Gunnar HUMPHREYLIN [facility] 2023 05:54-0500 Respiratory rate 12 /min Gunnar JENSENSLIN [facility] 2023 01:56-0500 Heart rate 79 /min Gunnarmalorie HUMPHREYLIN [facility] 2023 00:53-0500 Respiratory rate 16 /min Gunnar HUMPHREYLIN [facility] 01-02-2023 02:44-0500 Diastolic blood pressure 71 mm[Hg] Darren Megan [facility] 01-02-2023 02:44-0500 Heart rate 86 /min Darren Megan [facility] 01-02-2023 02:44-0500 Mean blood pressure 84 mm[Hg] Darren Megan [facility] 01-02-2023 02:44-0500 Respiratory rate 18 /min Darren Megan [facility] 01-02-2023 02:44-0500 SaO2% (BldA) [Mass fraction] 97 % Darren Megan [facility] 01-02-2023 02:44-0500 Systolic blood pressure 110 mm[Hg] Darren Megan [facility] 01-02-2023 00:43-0500 Body temperature 97.88 [degF] Darren Megan [facility] 01-02-2023 00:43-0500 Diastolic blood pressure 87 mm[Hg] Darren Megan [facility] 01-02-2023 00:43-0500 Heart rate 88 /min Darren Megan [facility] 01-02-2023 00:43-0500 Respiratory rate 16 /min Darren Megan [facility] 01-02-2023 00:43-0500 SaO2% (BldA) [Mass fraction] 97 % Darren Guzman [facility] 01-02-2023 00:43-0500 Systolic blood pressure 137 mm[Hg] Darren Megan [facility] 12-16-2022 20:58-0500 Diastolic blood pressure 79 mm[Hg] Amy Steele MD Work Phone: [facility] 12-16-2022 20:58-0500 Heart rate 98 /min Amy Steele MD Work Phone: [facility] 12-16-2022 20:58-0500 Respiratory rate 20 /min Amy Steele MD Work Phone: [facility] 12-16-2022 20:58-0500 SaO2% (BldA) [Mass fraction] 98 % Amy Steele MD Work Phone: [facility] 12-16-2022 20:58-0500 Systolic blood pressure 116 mm[Hg] Amy Steele MD Work Phone: [facility] 12-15-2022 05:27-0400 Body temperature 97.2 [degF] Amy Steele MD Work Phone: [facility] 12-14-2022 21:01-0400 Body height 162.6 cm Amy Steele MD Work Phone: [facility] 12-14-2022 21:01-0400 Body mass index (BMI) [Ratio] 22.31 kg/m2 Amy Steele MD Work Phone: [facility] 12-14-2022 21:01-0400 Body weight 58.97 kg Amy Steele MD Work Phone: [facility] 12-11-2022 16:02-0400 Diastolic blood pressure 68 mm[Hg] [employer] Amanda Robuck Work Phone: [facility] 12-11-2022 16:02-0400 Heart rate 72 /min [employer] Amanda Robuck Work Phone: [facility] 12-11-2022 16:02-0400 Respiratory rate 18 /min [employer] Amanda Robuck Work Phone: [facility] 12-11-2022 16:02-0400 SaO2% (BldA) [Mass fraction] 96 % [employer] Amanda Robuck Work Phone: [facility] 12-11-2022 16:02-0400 Systolic blood pressure 117 mm[Hg] [employer] Amanda Robuck Work Phone: [facility] 12-11-2022 13:45-0400 Inhaled oxygen flow rate 2 L/min [employer] Amanda Robuck Work Phone: [facility] 12-11-2022 11:30-0400 Body height 165.1 cm [employer] Amanda Robuck Work Phone: [facility] 12-11-2022 11:30-0400 Body temperature 97.1 [degF] [employer]PER[employer] Amanda Robuck Work Phone: [facility] 12-11-2022 11:30-0400 Body weight 76.6 kg LOGAN Barrios Work Phone: [facility] 12-10-2022 21:52-0400 Heart rate 89 /min Eric Forbes [facility] 12-10-2022 21:52-0400 Respiratory rate 19 /min Eric Forbes [facility] 12-10-2022 21:52-0400 SaO2% (BldA) [Mass fraction] 95 % Eric Benavideze [facility] 12-10-2022 20:07-0400 Diastolic blood pressure 88 mm[Hg] Eric Benavideze [facility] 12-10-2022 20:07-0400 Heart rate 90 /min Eric Benavideze [facility] 12-10-2022 20:07-0400 Respiratory rate 18 /min Eric Benavideze [facility] 12-10-2022 20:07-0400 SaO2% (BldA) [Mass fraction] 98 % Eric Benavideze [facility] 12-10-2022 20:07-0400 Systolic blood pressure 138 mm[Hg] Eric Benavideze [facility] 12-10-2022 18:30-0400 Heart rate 88 /min Eric Benavideze [facility] 12-10-2022 18:30-0400 Respiratory rate 18 /min Eric Benavideze [facility] 12-10-2022 18:30-0400 SaO2% (BldA) [Mass fraction] 99 % Erci Benavideze [facility] 12-10-2022 17:23-0400 Body temperature 98.42 [degF] Eric Benavideze [facility] 12-10-2022 17:23-0400 Diastolic blood pressure 101 mm[Hg] Eric Leidy [facility] 12-10-2022 17:23-0400 Systolic blood pressure 140 mm[Hg] Eric Leidy [facility] 12-10-2022 11:45-0400 Diastolic blood pressure 98 mm[Hg] Eric Leidy [facility] 12-10-2022 11:45-0400 Heart rate 96 /min Eric Leidy [facility] 12-10-2022 11:45-0400 Mean blood pressure 116 mm[Hg] Eric Leidy [facility] 12-10-2022 11:45-0400 Respiratory rate 18 /min Eric Leidy [facility] 12-10-2022 11:45-0400 SaO2% (BldA) [Mass fraction] 96 % Eric Leidy [facility] 12-10-2022 11:45-0400 Systolic blood pressure 153 mm[Hg] Eric Leidy [facility] 12-10-2022 10:29-0400 SaO2% (BldA) [Mass fraction] 93 % Eric Leidy [facility] 12-10-2022 10:15-0400 Diastolic blood pressure 82 mm[Hg] Eric Leidy [facility] 12-10-2022 10:15-0400 Heart rate 75 /min Eric Leidy [facility] 12-10-2022 10:15-0400 Mean blood pressure 95 mm[Hg] Eric Leidy [facility] 12-10-2022 10:15-0400 Respiratory rate 18 /min Eric Forbes [facility] 12-10-2022 10:15-0400 SaO2% (BldA) [Mass fraction] 93 % Eric Forbes [facility] 12-10-2022 10:15-0400 Systolic blood pressure 122 mm[Hg] Eric Forbes [facility] 12-10-2022 09:00-0400 Diastolic blood pressure 81 mm[Hg] Eric Forbes [facility] 12-10-2022 09:00-0400 Heart rate 65 /min Eric Forbes [facility] 12-10-2022 09:00-0400 Systolic blood pressure 123 mm[Hg] Eric Forbes [facility] 12-10-2022 08:01-0400 Body temperature 97.88 [degF] Eric Forbes [facility] 12-10-2022 08:01-0400 Heart rate 91 /min Eric Forbes [facility] 12-10-2022 08:01-0400 Respiratory rate 20 /min Eric Forbes [facility] 11-30-2022 13:30-0400 Blood Pressure Location CARRIE PEREZ [facility] 11-30-2022 13:30-0400 Body temperature 98.6 [degF] CARRIE PEREZ [facility] 11-30-2022 13:30-0400 Diastolic blood pressure 82 mm[Hg] CARRIE PEREZ [facility] 11-30-2022 13:30-0400 Heart rate 68 /min CARRIE PEREZ [facility] 11-30-2022 13:30-0400 SaO2% (BldA) [Mass fraction] 98 % CARRIE PEREZ [facility] 11-30-2022 13:30-0400 Systolic blood pressure 138 mm[Hg] CARRIE PEREZ [facility] 11-04-2022 15:46-0400 Diastolic blood pressure 95 mm[Hg] [facility] 11-04-2022 15:46-0400 Heart rate 58 /min [facility] 11-04-2022 15:46-0400 Respiratory rate 16 /min [facility] 11-04-2022 15:46-0400 SaO2% (BldA) [Mass fraction] 98 % [facility] 11-04-2022 15:46-0400 Systolic blood pressure 153 mm[Hg] [facility] 11-04-2022 14:38-0400 Diastolic blood pressure 121 mm[Hg] [facility] 11-04-2022 14:38-0400 Heart rate 67 /min [facility] 11-04-2022 14:38-0400 Respiratory rate 18 /min [facility] 11-04-2022 14:38-0400 SaO2% (BldA) [Mass fraction] 98 % [facility] 11-04-2022 14:38-0400 Systolic blood pressure 176 mm[Hg] [facility] 11-04-2022 13:22-0400 Diastolic blood pressure 120 mm[Hg] [facility] 11-04-2022 13:22-0400 Heart rate 84 /min [facility] 11-04-2022 13:22-0400 Respiratory rate 18 /min [facility] 11-04-2022 13:22-0400 SaO2% (BldA) [Mass fraction] 99 % [facility] 11-04-2022 13:22-0400 Systolic blood pressure 180 mm[Hg] [facility] 11-04-2022 12:23-0400 Body temperature 97.7 [degF] [facility] 11-04-2022 12:23-0400 Heart rate 70 /min [facility] 09-06-2022 11:52-0400 Diastolic blood pressure 103 mm[Hg] [employer] Amanda Robuck Work Phone: [facility] 09-06-2022 11:52-0400 Heart rate 76 /min [employer] Amanda Robuck Work Phone: [facility] 09-06-2022 11:52-0400 Respiratory rate 18 /min [employer] Amanda Robuck Work Phone: [facility] 09-06-2022 11:52-0400 SaO2% (BldA) [Mass fraction] 97 % [employer] Amanda Robuck Work Phone: [facility] 09-06-2022 11:52-0400 Systolic blood pressure 159 mm[Hg] [employer] Amanda Robuck Work Phone: [facility] 09-06-2022 10:16-0400 Body height 157.48 cm [employer] Amanda Robuck Work Phone: [facility] 09-06-2022 10:16-0400 Body temperature 97.1 [degF] [employer]PER[employer] Amanda Robuck Work Phone: [facility] 09-06-2022 10:16-0400 Body weight 71.4 kg [employer] Amanda Robuck Work Phone: [facility] 08-28-2022 09:49-0400 Blood Pressure Location Lorie Gudimella [facility] 08-28-2022 09:49-0400 Body temperature 98.6 [degF] Lorie Gudimella [facility] 08-28-2022 09:49-0400 Diastolic blood pressure 60 mm[Hg] Lorie Gudimella [facility] 08-28-2022 09:49-0400 Heart rate 71 /min Lorie Gudimella [facility] 08-28-2022 09:49-0400 SaO2% (BldA) [Mass fraction] 96 % Lorie Gudimella [facility] 08-28-2022 09:49-0400 Systolic blood pressure 118 mm[Hg] Lorie Gudimella [facility] 08-18-2022 10:01-0400 Hourly Rounding Gunnar EDISON [facility] 08-18-2022 10:01-0400 Promise to Return Gunnar EDISON [facility] 08-18-2022 09:52-0400 Hourly Rounding Gunnar EDISON [facility] 08-18-2022 09:52-0400 Promise to Return Gunnar EDISON [facility] 08-18-2022 08:46-0400 Hourly Rounding Gunnar EDISON [facility] 08-18-2022 08:46-0400 Promise to Return Gunnar EDISON [facility] 08-18-2022 08:00-0400 Body temperature 98.06 [degF] Gunnar EDISON [facility] 08-18-2022 08:00-0400 Diastolic blood pressure 72 mm[Hg] Gunnarmalorie JENSENSLIN [facility] 08-18-2022 08:00-0400 Heart rate 65 /min Gunnarmalorie JENSENSLIN [facility] 08-18-2022 08:00-0400 SaO2% (BldA) [Mass fraction] 96 % Gunnarmalorie JENSENSLIN [facility] 08-18-2022 08:00-0400 Systolic blood pressure 120 mm[Hg] Gunnarmalorie JENSENSLIN [facility] 08-18-2022 00:00-0400 Body temperature 98.06 [degF] Gunnar JENSENSLIN [facility] 08-18-2022 00:00-0400 Diastolic blood pressure 68 mm[Hg] [facility]armalorie [facility]IN [facility] [facility] 08-18-2022 00:00-0400 Heart rate 69 /min Gunnarmalorie JENSENSLIN [facility] 08-18-2022 00:00-0400 SaO2% (BldA) [Mass fraction] 98 % Gunnarmalorie JENSENSLIN [facility] 08-18-2022 00:00-0400 Systolic blood pressure 110 mm[Hg] Gunnarmalorie JENSENSLIN [facility] 08-17-2022 19:57-0400 Heart rate 74 /min Gunnarmalorie JENSENSLIN [facility] 08-17-2022 19:57-0400 SaO2% (BldA) [Mass fraction] 97 % Gunnarmalorie JENSENSLIN [facility] 08-17-2022 19:56-0400 Diastolic blood pressure 69 mm[Hg] Gunnar EDISON [facility] 08-17-2022 19:56-0400 Mean blood pressure 82 mm[Hg] Gunnar EDISON [facility] 08-17-2022 19:56-0400 Systolic blood pressure 109 mm[Hg] Gunnar EDISON [facility] 08-17-2022 19:55-0400 Body temperature 97.52 [degF] Gunnar EDISON [facility] 08-17-2022 16:22-0400 Mean blood pressure 124 mm[Hg] Gunnar EDISON [facility] 08-17-2022 11:47-0400 Mean blood pressure 82 mm[Hg] Gunnar EDISON [facility] 08-17-2022 11:46-0400 Body temperature 97.88 [degF] Gunnar EDISON [facility] 08-17-2022 08:20-0400 Body temperature 96.62 [degF] Gunnar EDISON [facility] 08-17-2022 06:50-0400 Blood Pressure Location Gunnar EDISON [facility] 08-17-2022 06:50-0400 Heart rate 54 /min Gunnar EDISON [facility] 08-17-2022 06:24-0400 Mean blood pressure 93 mm[Hg] Gunnar EDISON [facility] 08-17-2022 06:24-0400 Respiratory rate 11 /min Gunnar EDISON [facility] 08-17-2022 05:19-0400 Mean blood pressure 92 mm[Hg] Gunnar EDISON [facility] 08-17-2022 05:19-0400 Respiratory rate 31 /min Gunnarmalorie JENSENSLIN [facility] 08-17-2022 03:00-0400 Mean blood pressure 85 mm[Hg] Gunnar EDISON [facility] 08-17-2022 03:00-0400 Respiratory rate 32 /min Gunnarmalorie JENSENSLIN [facility] 08-17-2022 01:39-0400 Blood Pressure Location Gunnarmalorie JENSENSLIN [facility] 08-17-2022 01:39-0400 Heart rate 64 /min Gunnarmalorie JENSENSLIN [facility] 08-17-2022 01:39-0400 Respiratory rate 15 /min Gunnarmalorie JENSENSLIN [facility] 08-17-2022 01:24-0400 Body temperature 97.16 [degF] Gunnarmalorie JENSENSLIN [facility] 08-17-2022 01:24-0400 Heart rate 62 /min Gunnarmalorie JENSENSLIN [facility] 08-16-2022 23:47-0400 Body temperature 96.62 [degF] Gunnarmalorie JENSENSLIN [facility] 08-16-2022 23:47-0400 Respiratory rate 23 /min Gunnarmalorie JENSENSLIN [facility] 08-13-2022 13:26-0400 Diastolic blood pressure 88 mm[Hg] Amanda ROBUCK [facility] 08-13-2022 13:26-0400 Mean blood pressure 101 mm[Hg] Amanda ROBUCK [facility] 08-13-2022 13:26-0400 Systolic blood pressure 128 mm[Hg] Amanda ROBUCK [facility] 08-13-2022 12:58-0400 Blood Pressure Location Amanda ROBUCK [facility] 08-13-2022 12:58-0400 Diastolic blood pressure 107 mm[Hg] Amanda ROBUCK [facility] 08-13-2022 12:58-0400 Heart rate 84 /min Amanda ROBUCK [facility] 08-13-2022 12:58-0400 SaO2% (BldA) [Mass fraction] 99 % Amanda ROBUCK [facility] 08-13-2022 12:58-0400 Systolic blood pressure 167 mm[Hg] Amanda ROBUCK [facility] 06-10-2022 07:30-0400 Body temperature 97.5 [degF] [employer] Amanda Robuck Work Phone: [facility] 06-10-2022 07:30-0400 Diastolic blood pressure 92 mm[Hg] [employer] PR[employer] OPERATOR Amanda Robuck Work Phone: [facility] 06-10-2022 07:30-0400 Heart rate 78 /min [employer] PR[employer] OPERATOR Amanda Robuck Work Phone: [facility] 06-10-2022 07:30-0400 Respiratory rate 18 /min [employer] PR[employer] OPERATOR Amanda Robuck Work Phone: [facility] 06-10-2022 07:30-0400 SaO2% (BldA) [Mass fraction] 97 % [employer] PR[employer] OPERATOR Amanda Robuck Work Phone: [facility] 06-10-2022 07:30-0400 Systolic blood pressure 132 mm[Hg] HAR[employer] PR[employer] OPERATOR Amanda Robuck Work Phone: [facility] 06-08-2022 14:09-0400 Body height 157.48 cm HAR[employer]OARD PRESS OPERATOR Amanda Robuck Work Phone: [facility] 06-07-2022 17:31-0400 Body weight 72.57 kg HAR[employer]ARD PRESS OPERATOR Amanda Robuck Work Phone: [facility] 06-07-2022 15:22-0400 Diastolic blood pressure 91 mm[Hg] HAR[employer]ARD PRESS OPERATOR Amanda Robuck Work Phone: [facility] 06-07-2022 15:22-0400 Heart rate 90 /min HAR[employer]ARD PR[employer] OPERATOR Amanda Robuck Work Phone: [facility] 06-07-2022 15:22-0400 Respiratory rate 24 /min HAR[employer]ARD PR[employer] OPERATOR Amanda Robuck Work Phone: [facility] 06-07-2022 15:22-0400 SaO2% (BldA) [Mass fraction] 97 % [employer] PR[employer] OPERATOR Amanda Robuck Work Phone: [facility] 06-07-2022 15:22-0400 Systolic blood pressure 151 mm[Hg] HAR[employer] PR[employer] OPERATOR Amanda Robuck Work Phone: [facility] 06-07-2022 08:57-0400 Body height 157.48 cm HAR[employer]ARD PR[employer] OPERATOR Amanda Robuck Work Phone: [facility] 06-07-2022 08:57-0400 Body temperature 98.3 [degF] HAR[employer] PR[employer] OPERATOR Amanda Robuck Work Phone: [facility] 06-07-2022 08:57-0400 Body weight 73.02 kg HAR[employer]ARD PRESS OPERATOR Amanda Robuck Work Phone: [facility] 04-24-2022 14:45-0400 Body height 160.02 cm Imad Asaad Other [employer] Other 04-24-2022 14:45-0400 Body mass index (BMI) [Ratio] 29.23 kg/m2 Imad Asaad Other [facility] [employer] Other 04-24-2022 14:45-0400 Body weight 74.84 kg Imad Asaad Other [facility] [employer] Other 04-24-2022 14:45-0400 Diastolic blood pressure 56 mm[Hg] Imad Asaad Other [facility] [employer] Other 04-24-2022 14:45-0400 Systolic blood pressure 109 mm[Hg] Imad Asaad Other [facility] [employer] Other 04-11-2022 11:11-0500 Diastolic blood pressure 70 mm[Hg] [employer] PR[employer] OPERATOR Amanda Robuck Work Phone: [facility] 04-11-2022 11:11-0500 Heart rate 72 /min [employer] PR[employer] OPERATOR Amanda Robuck Work Phone: [facility] 04-11-2022 11:11-0500 Respiratory rate 16 /min [employer] PR[employer] OPERATOR Amanda Robuck Work Phone: [facility] 04-11-2022 11:11-0500 SaO2% (BldA) [Mass fraction] 98 % [employer] PR[employer] OPERATOR Amanda Robuck Work Phone: [facility] 04-11-2022 11:11-0500 Systolic blood pressure 148 mm[Hg] [employer] PR[employer] OPERATOR Amanda Robuck Work Phone: [facility] 04-11-2022 08:29-0500 Body height 157.48 cm HAR[employer]ARD PRESS OPERATOR Amanda Robuck Work Phone: [facility] 04-11-2022 08:29-0500 Body temperature 97.5 [degF] [employer] PR[employer] OPERATOR Amanda Robuck Work Phone: [facility] 04-11-2022 08:29-0500 Body weight 74.84 kg HAR[employer]ARD PRESS OPERATOR Amanda Robuck Work Phone: [facility] 04-04-2022 09:31-0500 Diastolic blood pressure 59 mm[Hg] [employer] PR[employer] OPERATOR Amanda Robuck Work Phone: [facility] 04-04-2022 09:31-0500 Heart rate 85 /min [employer] PR[employer] OPERATOR Amanda Robuck Work Phone: [facility] 04-04-2022 09:31-0500 Respiratory rate 20 /min [employer] PR[employer] OPERATOR Amanda Robuck Work Phone: [facility] 04-04-2022 09:31-0500 SaO2% (BldA) [Mass fraction] 93 % [employer] PR[employer] OPERATOR Amanda Robuck Work Phone: [facility] 04-04-2022 09:31-0500 Systolic blood pressure 110 mm[Hg] [employer] PR[employer] OPERATOR Amanda Robuck Work Phone: [facility] 04-03-2022 21:50-0500 Body height 170.18 cm HAR[employer]ARD PR[employer] OPERATOR Amanda Robuck Work Phone: [facility] 04-03-2022 21:50-0500 Body weight 81.6 kg HAR[employer]ARD PR[employer] OPERATOR Amanda Robuck Work Phone: [facility] 04-03-2022 21:50-0500 Inhaled oxygen flow rate 15 L/min [employer] PR[employer] OPERATOR Amanda Robuck Work Phone: [facility] 04-03-2022 08:06-0500 Body height 157.48 cm HAR[employer]ARD PR[employer] OPERATOR Amanda Robuck Work Phone: [facility] 04-03-2022 08:06-0500 Body temperature 96.9 [degF] HAR[employer] PR[employer] OPERATOR Amanda Robuck Work Phone: [facility] 04-03-2022 08:06-0500 Body weight 74.84 kg HAR[employer]ARD PR[employer] OPERATOR Amanda Robuck Work Phone: [facility] 04-03-2022 08:06-0500 Diastolic blood pressure 86 mm[Hg] HAR[employer] PR[employer] OPERATOR Amanda Robuck Work Phone: [facility] 04-03-2022 08:06-0500 Heart rate 74 /min [employer] PR[employer] OPERATOR Amanda Robuck Work Phone: [facility] 04-03-2022 08:06-0500 Respiratory rate 18 /min [employer] PR[employer] OPERATOR Amanda Robuck Work Phone: [facility] 04-03-2022 08:06-0500 SaO2% (BldA) [Mass fraction] 98 % [employer] OPERATOR Amanda Robuck Work Phone: [facility] 04-03-2022 08:06-0500 Systolic blood pressure 124 mm[Hg] HAR[employer] PR[employer] OPERATOR Amanda Robuck Work Phone: [facility] 04-01-2022 18:19-0500 Body height 157.48 cm HAR[employer]ARD PR[employer] OPERATOR Amanda Robuck Work Phone: [facility] 04-01-2022 18:19-0500 Body temperature 99.4 [degF] HAR[employer]ARD PR[employer] OPERATOR Amanda Robuck Work Phone: [facility] 04-01-2022 18:19-0500 Body weight 74.84 kg HAR[employer]ARD PR[employer] OPERATOR Amanda Robuck Work Phone: [facility] 04-01-2022 18:19-0500 Diastolic blood pressure 99 mm[Hg] HAR[employer] PR[employer] OPERATOR Amanda Robuck Work Phone: [facility] 04-01-2022 18:19-0500 Heart rate 111 /min HAR[employer]ARD PR[employer] OPERATOR Amanda Robuck Work Phone: [facility] 04-01-2022 18:19-0500 Respiratory rate 18 /min HAR[employer]ARD PR[employer] OPERATOR Amanda Robuck Work Phone: [facility] 04-01-2022 18:19-0500 SaO2% (BldA) [Mass fraction] 100 % HAR[employer] PR[employer] OPERATOR Amanda Robuck Work Phone: [facility] 04-01-2022 18:19-0500 Systolic blood pressure 143 mm[Hg] HAR[employer]ARD PR[employer] OPERATOR Amanda Robuck Work Phone: [facility] 03-19-2022 06:50-0500 Diastolic blood pressure 78 mm[Hg] HAR[employer]ARD PR[employer] OPERATOR Amanda Robuck Work Phone: [facility] 03-19-2022 06:50-0500 Heart rate 82 /min HAR[employer]ARD PR[employer] OPERATOR Amanda Robuck Work Phone: [facility] 03-19-2022 06:50-0500 Respiratory rate 18 /min HAR[employer]ARD PR[employer] OPERATOR Amanda Robuck Work Phone: [facility] 03-19-2022 06:50-0500 SaO2% (BldA) [Mass fraction] 99 % [employer]ARD PR[employer] OPERATOR Amanda Robuck Work Phone: [facility] 03-19-2022 06:50-0500 Systolic blood pressure 124 mm[Hg] HAR[employer]ARD PR[employer] OPERATOR Amanda Robuck Work Phone: [facility] 03-19-2022 05:27-0500 Body height 157.48 cm HAR[employer]ARD PRESS OPERATOR Amanda Robuck Work Phone: [facility] 03-19-2022 05:27-0500 Body temperature 97 [degF] HAR[employer]ARD PRESS OPERATOR Amanda Robuck Work Phone: [facility] 03-19-2022 05:27-0500 Body weight 74.84 kg HAR[employer]ARD PRESS OPERATOR Amanda Robuck Work Phone: [facility] 03-13-2022 12:59-0500 Body temperature 98.8 [degF] Declan Goel MD Work Phone: [email or web address] 03-13-2022 12:58-0500 Diastolic blood pressure 92 mm[Hg] Declan Goel MD Work Phone: [facility] 03-13-2022 12:58-0500 Systolic blood pressure 131 mm[Hg] Declan Goel MD Work Phone: [email or web address] 03-13-2022 12:57-0500 Heart rate 114 /min Declan Goel MD Work Phone: [email or web address] 03-13-2022 12:57-0500 Respiratory rate 28 /min Declan Goel MD Work Phone: [email or web address] 03-13-2022 12:57-0500 SaO2% (BldA) [Mass fraction] 92 % Declan Goel MD Work Phone: [email or web address] 03-13-2022 03:48-0500 Diastolic blood pressure 76 mm[Hg] Phu Barker DO Work Phone: [email or web address] 03-13-2022 03:48-0500 Heart rate 105 /min Phu Barker DO Work Phone: [email or web address] 03-13-2022 03:48-0500 Respiratory rate 16 /min Phu Barker DO Work Phone: [email or web address] 03-13-2022 03:48-0500 SaO2% (BldA) [Mass fraction] 95 % Phu Barker DO Work Phone: [email or web address] 03-13-2022 03:48-0500 Systolic blood pressure 133 mm[Hg] Phu Barker DO Work Phone: [email or web address] 03-12-2022 23:32-0500 Body temperature 98.4 [degF] Phu Barker DO Work Phone: [email or web address] 03-12-2022 14:08-0500 Body height 154.9 cm Phu Barker DO Work Phone: [email or web address] 03-12-2022 14:08-0500 Body mass index (BMI) [Ratio] 30.23 kg/m2 Phu Barker DO Work Phone: [email or web address] 03-12-2022 14:08-0500 Body weight 72.58 kg Phu Barker DO Work Phone: [facility] 03-09-2022 07:03-0500 Body height 157.48 cm HAR[employer]ARD PR[employer] OPERATOR Amanda Robuck Work Phone: [facility] 03-09-2022 07:03-0500 Body temperature 97.1 [degF] HAR[employer]ARD PRESS OPERATOR Amanda Robuck Work Phone: [facility] 03-09-2022 07:03-0500 Body weight 78.6 kg HAR[employer]ARD PRESS OPERATOR Amanda Robuck Work Phone: [facility] 03-09-2022 07:03-0500 Diastolic blood pressure 82 mm[Hg] HAR[employer]ARD PR[employer] OPERATOR Amanda Robuck Work Phone: [facility] 03-09-2022 07:03-0500 Heart rate 73 /min HAR[employer]ARD PR[employer] OPERATOR Amanda Robuck Work Phone: [facility] 03-09-2022 07:03-0500 Respiratory rate 18 /min HAR[employer]ARD PR[employer] OPERATOR Amanda Robuck Work Phone: [facility] 03-09-2022 07:03-0500 SaO2% (BldA) [Mass fraction] 98 % [employer]ARD PR[employer] OPERATOR Amanda Robuck Work Phone: [facility] 03-09-2022 07:03-0500 Systolic blood pressure 134 mm[Hg] HAR[employer]ARD PR[employer] OPERATOR Amanda Robuck Work Phone: [facility] 03-05-2022 20:34-0500 Diastolic blood pressure 79 mm[Hg] HAR[employer]ARD PRESS OPERATOR Amanda Robuck Work Phone: [facility] 03-05-2022 20:34-0500 Heart rate 82 /min HAR[employer]ARD PR[employer] OPERATOR Amanda Robuck Work Phone: [facility] 03-05-2022 20:34-0500 Respiratory rate 23 /min HAR[employer]ARD PR[employer] OPERATOR Amanda Robuck Work Phone: [facility] 03-05-2022 20:34-0500 SaO2% (BldA) [Mass fraction] 100 % HAR[employer]ARD PR[employer] OPERATOR Amanda Robuck Work Phone: [facility] 03-05-2022 20:34-0500 Systolic blood pressure 126 mm[Hg] HAR[employer]ARD PR[employer] OPERATOR Amanda Robuck Work Phone: [facility] 03-05-2022 13:40-0500 Body height 157.48 cm HAR[employer]ARD PR[employer] OPERATOR Amanda Robuck Work Phone: 9(619)[phone] [place] [address] 03-05-2022 13:40-0500 Body temperature 97.8 [degF] HAR[employer]ARD PRESS OPERATOR Amanda Robuck Work Phone: 7(076)657-965970 [place] [address] 03-05-2022 13:40-0500 Body weight 77.11 kg HAR[employer]ARD PRESS OPERATOR Amanda Robuck Work Phone: 1(793)661-792070 [place] [address] 02-21-2022 07:20-0500 Diastolic blood pressure 70 mm[Hg] HAR[employer]ARD PRESS OPERATOR Amanda Robuck Work Phone: 0(697)498-828070 [place] [address] 02-21-2022 07:20-0500 Heart rate 89 /min HAR[employer]ARD PR[employer] OPERATOR Amanda Robuck Work Phone: [facility] 02-21-2022 07:20-0500 Respiratory rate 16 /min HAR[employer]ARD PRESS OPERATOR Amanda Robuck Work Phone: [facility] 02-21-2022 07:20-0500 SaO2% (BldA) [Mass fraction] 93 % HAR[employer]ARD PR[employer] OPERATOR Amanda Robuck Work Phone: [facility] 02-21-2022 07:20-0500 Systolic blood pressure 127 mm[Hg] HARDBOARD PRESS OPERATOR Amanda Robuck Work Phone: 6(614)950-316370 [place] [address] 02-20-2022 19:43-0500 Body temperature 97.1 [degF] HAR[employer]OARD PRESS OPERATOR Amanda Robuck Work Phone: [facility] 02-20-2022 18:51-0500 Body height 157.48 cm HARDBOARD PRESS OPERATOR Amanda Robuck Work Phone: [facility] 02-20-2022 18:51-0500 Body weight 78.9 kg HARDBOARD PRESS OPERATOR Amanda Robuck Work Phone: [facility] 02-19-2022 11:20-0500 Body height 157.48 cm HAR[employer]OARD PRESS OPERATOR Amanda Robuck Work Phone: [facility] 02-19-2022 11:20-0500 Body temperature 98 [degF] HARDBOARD PRESS OPERATOR Amanda Robuck Work Phone: [facility] 02-19-2022 11:20-0500 Body weight 79.15 kg HAR[employer]OARD PRESS OPERATOR Amanda Robuck Work Phone: [facility] 02-19-2022 11:20-0500 Diastolic blood pressure 95 mm[Hg] HARDBOARD PRESS OPERATOR Amanda Robuck Work Phone: [facility] 02-19-2022 11:20-0500 Heart rate 94 /min HAR[employer]ARD PR[employer] OPERATOR Amanda Robuck Work Phone: [facility] 02-19-2022 11:20-0500 Respiratory rate 18 /min HAR[employer]OARD PRESS OPERATOR Amanda Robuck Work Phone: [facility] 02-19-2022 11:20-0500 SaO2% (BldA) [Mass fraction] 95 % HAR[employer]ARD PR[employer] OPERATOR Amanda Robuck Work Phone: [facility] 02-19-2022 11:20-0500 Systolic blood pressure 149 mm[Hg] HARDBOARD PRESS OPERATOR Amanda Robuck Work Phone: [facility] 10-06-2021 16:23-0400 Diastolic blood pressure 81 mm[Hg] Varun ZURITA [facility] 10-06-2021 16:23-0400 Heart rate 53 /min Varun ZURITA [facility] 10-06-2021 16:23-0400 Mean blood pressure 99 mm[Hg] Varun ZURITA [facility] 10-06-2021 16:23-0400 SaO2% (BldA) [Mass fraction] 96 % Varun ZURITA [facility] 10-06-2021 16:23-0400 Systolic blood pressure 135 mm[Hg] Varun ZURITA [facility] 09-19-2021 10:16-0400 Blood Pressure Location Amanda BARRIOS [facility] 09-19-2021 10:16-0400 Diastolic blood pressure 78 mm[Hg] Amanda BARRIOS [facility] 09-19-2021 10:16-0400 Heart rate 86 /min Amanda BARRIOS [facility] 09-19-2021 10:16-0400 Systolic blood pressure 114 mm[Hg] Amanda BARRIOS [facility] 07-26-2021 21:00-0400 Diastolic blood pressure 98 mm[Hg] Isai Hall [facility] 07-26-2021 21:00-0400 Heart rate 86 /min Isai Rafael [facility] 07-26-2021 21:00-0400 Mean blood pressure 106 mm[Hg] Isai Hall [facility] 07-26-2021 21:00-0400 Respiratory rate 18 /min Isai Hall [facility] 07-26-2021 21:00-0400 SaO2% (BldA) [Mass fraction] 100 % Isai Hall [facility] 07-26-2021 21:00-0400 Systolic blood pressure 123 mm[Hg] Isai Hall [facility] 07-26-2021 20:00-0400 Hourly Rounding Isai Hall [facility] 07-26-2021 20:00-0400 Nursing Progress Note Reason Other: TO ct Isai Hall [facility] 07-26-2021 20:00-0400 Promise to Return Isai Hall [facility] 07-26-2021 19:00-0400 Hourly Rounding Isai Hall [facility] 07-26-2021 19:00-0400 Promise to Return Isai Hall [facility] 07-26-2021 18:11-0400 Body temperature 98.24 [degF] Isai Hall [facility] 07-26-2021 18:11-0400 Diastolic blood pressure 103 mm[Hg] Isai Rafael [facility] 07-26-2021 18:11-0400 Heart rate 103 /min Isai Rafael [facility] 07-26-2021 18:11-0400 Respiratory rate 16 /min Isai Hall [facility] 07-26-2021 18:11-0400 SaO2% (BldA) [Mass fraction] 97 % Isai Rafael [facility] 07-26-2021 18:11-0400 Systolic blood pressure 118 mm[Hg] Isai Rafael [facility] 07-04-2021 15:06-0400 Diastolic blood pressure 77 mm[Hg] Amanda BARRIOS [facility] 07-04-2021 15:06-0400 Heart rate 86 /min Amanda BARRIOS [facility] 07-04-2021 15:06-0400 Systolic blood pressure 122 mm[Hg] Amanda BARRIOS [facility] 05-03-2021 10:00-0400 Diastolic blood pressure 86 mm[Hg] Zaire Osuna MD Work Phone: [facility] [employer] 05-03-2021 10:00-0400 Systolic blood pressure 131 mm[Hg] Zaire Osuna MD Work Phone: [facility] 05-03-2021 09:31-0400 Body height 157.5 cm Zaire Osuna MD Work Phone: [facility] 05-03-2021 09:31-0400 Body mass index (BMI) [Ratio] 31.09 kg/m2 Zaire Osuna MD Work Phone: [facility] 05-03-2021 09:31-0400 Body temperature 98.2 [degF] Zaire Osuna MD Work Phone: [facility] 05-03-2021 09:31-0400 Body weight 77.11 kg Zaire Osuna MD Work Phone: [facility] 05-03-2021 09:31-0400 Heart rate 103 /min Zaire Osuna MD Work Phone: [facility] 05-03-2021 09:31-0400 Respiratory rate 16 /min Zaire Osuna MD Work Phone: [facility] 05-03-2021 09:31-0400 SaO2% (BldA) [Mass fraction] 96 % Zaire Osuna MD Work Phone: [facility] 05-03-2021 03:17-0400 Diastolic blood pressure 76 mm[Hg] Declan Bradshaw MD Work Phone: [facility] 05-03-2021 03:17-0400 Heart rate 86 /min Declan Bradshaw MD Work Phone: [facility] 05-03-2021 03:17-0400 SaO2% (BldA) [Mass fraction] 98 % Declan Bradshaw MD Work Phone: [facility] 05-03-2021 03:17-0400 Systolic blood pressure 107 mm[Hg] Declan Bradshaw MD Work Phone: [facility] 05-02-2021 23:07-0400 Body temperature 98.71 [degF] Declan Bradshaw MD Work Phone: [facility] 05-02-2021 23:04-0400 Body mass index (BMI) [Ratio] 31.09 kg/m2 Declan Bradshaw MD Work Phone: [facility] 05-02-2021 23:04-0400 Body weight 77.11 kg Declan Bradshaw MD Work Phone: [facility] 05-02-2021 23:04-0400 Respiratory rate 20 /min Declan Bradshaw MD Work Phone: [facility] 09-22-2020 19:10-0400 Body height 157.4 cm lEvis Campbell Other Phone: [facility] 09-22-2020 19:10-0400 Body temperature 96.08 [degF] Elvis Campbell Other Phone: [facility] 09-22-2020 19:10-0400 Diastolic blood pressure 99 mm[Hg] Elvis Campbell Other Phone: [facility] 09-22-2020 19:10-0400 Heart rate 90 /min Elvis Campbell Other Phone: [facility] 09-22-2020 19:10-0400 Respiratory rate 20 /min Elvis Joytrista Other Phone: [facility] 09-22-2020 19:10-0400 SaO2% (BldA) [Mass fraction] 97 % Elvis Benitatrista Other Phone: [facility] 09-22-2020 19:10-0400 Systolic blood pressure 131 mm[Hg] Elvis Campbell Other Phone: [facility] 03-11-2020 22:20-0500 Pulse (Heart Rate) 95 /min [facility] [place] 03-11-2020 22:20-0500 Pulse Oximetry 98 % [facility] [place] 03-11-2020 22:14-0500 BMI (Body Mass Index) 32.74 kg/m2 [facility] [place] 03-11-2020 22:14-0500 Body weight 81.19 kg [facility] [place] 03-11-2020 22:14-0500 Height 157.5 cm [facility] [place] 03-11-2020 22:08-0500 Body Temperature 99.3 [degF] [facility] 03-11-2020 22:08-0500 BP Diastolic 81 mm[Hg] [facility] [place] 03-11-2020 22:08-0500 BP Systolic 121 mm[Hg] [facility] [place] 03-11-2020 22:08-0500 Respiratory Rate 18 /min [facility] 03-10-2020 15:50-0500 BMI (Body Mass Index) 32.74 kg/m2 [facility] [place] 03-10-2020 15:50-0500 Body Temperature 98.01 [degF] [facility] 03-10-2020 15:50-0500 Body weight 81.19 kg [facility] 03-10-2020 15:50-0500 BP Diastolic 79 mm[Hg] [facility] [place] 03-10-2020 15:50-0500 BP Systolic 119 mm[Hg] [facility] [place] 03-10-2020 15:50-0500 Height 157.5 cm [facility] [place] 03-10-2020 15:50-0500 Pulse (Heart Rate) 78 /min [facility] 03-10-2020 15:50-0500 Pulse Oximetry 97 % [facility] [place] 03-10-2020 15:50-0500 Respiratory Rate 20 /min [facility] 02-24-2019 12:47-0500 BMI (Body Mass Index) 310.02 kg/m2 Nini Rickkins [facility] Work Phone: 02-24-2019 12:47-0500 Body weight 768.85 kg Nini Wolf [facility] Work Phone: 02-24-2019 12:47-0500 BP Diastolic 80 mm[Hg] Nini Wolf [facility] rnal Medicine Work Phone: Comment on above: Location: LUE; Position: Sitting 02-24-2019 12:47-0500 BP Systolic 134 mm[Hg] Nini Wolf [facility] rnal Medicine Work Phone: Comment on above: Location: LUE; Position: Sitting 02-24-2019 12:47-0500 BSA (Body Surface Area) 4.74 m2 Nini Wolf [facility] Work Phone: 02-24-2019 12:47-0500 Height 157.48 cm Nini Wolf [facility] Work Phone: 02-24-2019 12:47-0500 Pulse (Heart Rate) 80 /min Nini Wolf [facility] I nternal Medicine Work Phone: 02-17-2019 12:24-0500 BMI (Body Mass Index) 30 kg/m2 Nini Wolf [facility] Work Phone: 02-17-2019 12:24-0500 Body weight 74.39 kg Nini Wolf [facility] Work Phone: 02-17-2019 12:24-0500 BP Diastolic 84 mm[Hg] Nini Wolf [facility] Inte rnal Medicine Work Phone: 02-17-2019 12:24-0500 BP Systolic 130 mm[Hg] Nini Wolf [facility] rnal Medicine Work Phone: 02-17-2019 12:24-0500 BSA (Body Surface Area) 1.76 m2 Nini Wolf [facility] Internal Medicine Work Phone: 02-17-2019 12:24-0500 Height 157.48 cm Nini Wolf [facility] Inte rnal Medicine Work Phone: 02-17-2019 12:24-0500 Pulse (Heart Rate) 76 /min Nini Wolf [facility] I nternal Medicine Work Phone: 12-20-2018 21:49-0500 BP Diastolic 68 mm[Hg] [facility] , [place] 12-20-2018 21:49-0500 BP Systolic 116 mm[Hg] [facility] [place] 12-20-2018 21:49-0500 Pulse Oximetry 98 % [facility] [place] 12-20-2018 21:04-0500 BMI (Body Mass Index) 29.48 kg/m2 [facility], [place] 12-20-2018 21:04-0500 Body Temperature 97.5 [degF] [facility], [place] 12-20-2018 21:04-0500 Body weight 70.76 kg [facility] , [place] 12-20-2018 21:04-0500 Height 154.9 cm [facility] , [place] 12-20-2018 21:04-0500 Pulse (Heart Rate) 93 /min [facility], [place] 12-20-2018 21:04-0500 Respiratory Rate 20 /min [facility], [place] 11-01-2018 17:40-0400 BP Diastolic 93 mm[Hg] [facility], [place] 11-01-2018 17:40-0400 BP Systolic 143 mm[Hg] Mundo Guzman [facility], [place] 11-01-2018 17:37-0400 BMI (Body Mass Index) 28.89 kg/m2 [facility] [place] 11-01-2018 17:37-0400 Body Temperature 97.9 [degF] [place] 11-01-2018 17:37-0400 Body [facility] [place] 11-01-2018 17:37-0400 Height 154.9 cm [facility], [place] 11-01-2018 17:37-0400 Pulse (Heart Rate) 84 /min [place] 11-01-2018 17:37-0400 Pulse Oximetry 99 % [facility] [place] 11-01-2018 17:37-0400 Respiratory Rate 18 /min [place]undo [place], [place] Encounters Encounter Date Encounter Type Care Provider Facility Start: 03-04-2023 End: 03-04-2023 Emergency department patient visit DO Ari Augero Work Phone: [facility] Work Phone: Start: 03-04-2023 ambulatory ELECTRICIAN SUPERVISOR SUBSTATION Amanda E ROBUCK Faci lity:[facility] [place] Start: 01-28-2023 ambulatory ELECTRICIAN SUPERVISOR SUBSTATION Amanda E ROBUCK Faci lity:[facility] [place] Start: 01-25-2023 End: 01-25-2023 Emergency department patient visit Amandadiogenes Kapoorjulio Facility:[facility] Start: 01-25-2023 End: 01-25-2023 Emergency department patient visit DO Ari Aguero Work Phone: [facility] Work Phone: Start: 01-19-2023 End: 01-19-2023 Emergency department patient visit Amanda Barrios Facility:[facility] Start: 01-19-2023 End: 01-19-2023 Emergency department patient visit DO Ari Aguero Work Phone: [facility] Work Phone: Start: 01-17-2023 End: 01-18-2023 ambulatory ELECTRICIAN SUPERVISOR SUBSTATION Amanda E ANTWONJULIO Facility:[facility] Start: 01-17-2023 End: 01-17-2023 Patient encounter procedure Amanda E JOANA [facility] Start: 01-08-2023 End: 01-08-2023 Emergency department patient visit Diamante [place] Facility:[facility] Start: 01-08-2023 End: 01-08-2023 Emergency department patient visit HARDBOARD PRESS OPERATOR Amanda Kapoorjulio Work Phone: [facility] Work Phone: Start: 01-07-2023 End: 01-07-2023 Emergency department patient visit Darrensujatha Viavr Megan [facility] Start: 2023 End: 01-06-2023 Evaluation and management of inpatient Gunnar Chatman EDISON Facility[facility] Start: 2023 End: 01-06-2023 Evaluation and management of inpatient Gunnar Chatman EDISON [facility] Start: 01-02-2023 End: 01-02-2023 Emergency department patient visit Darren Roblesner [facility] Start: 01-02-2023 End: 01-02-2023 Emergency department patient visit Darrensujatha Vivar Megan [facility] Start: 12-14-2022 End: 12-17-2022 Emergency department patient visit NINI Martinez [facility] Start: 12-14-2022 End: 12-16-2022 Emergency department patient visit Amy Steele MD Work Phone: [facility] Emergency Medicine Comment on above: Alcohol withdrawal s yndrome with complication (CMS/HCC) (Primary Dx); Bipolar affective disorder, currently manic, moderate (CMS/HCC) Start: 12-11-2022 End: 12-11-2022 Emergency department patient visit Amanda Barrios Facility:[facility] Start: 12-11-2022 End: 12-11-2022 Emergency department patient visit HARDBOARD PRESS OPERATOR Amanda Barrios Work Phone: [facility] Work Phone: Start: 12-10-2022 End: 12-10-2022 Emergency department patient visit Eric Forbes Facility[facility] Start: 12-10-2022 End: 12-10-2022 Emergency department patient visit Eric Forbes [facility] Start: 12-10-2022 End: 12-10-2022 Emergency department patient visit Eric Forbes Facility[facility] Start: 12-10-2022 End: 12-10-2022 Emergency department patient visit Eric Forbes [facility] Start: 11-30-2022 End: 12-01-2022 ambulatory [facility] Facility[facility] Start: 11-30-2022 End: 12-01-2022 ambulatory [facility] Facility: [place] Start: 11-30-2022 End: 11-30-2022 Lab Drop off [facility] Start: 11-30-2022 End: 11-30-2022 Patient encounter procedure [facility] Start: 11-14-2022 End: 11-15-2022 ambulatory FRANTZ SIMMONS Facility[facility] Start: 11-14-2022 End: 11-14-2022 Lab Drop off FRNATZ SIMMONS [facility] Start: 11-13-2022 End: 11-14-2022 ambulatory WHNP Birgit COOPER Facility[facility] Start: 11-13-2022 End: 11-13-2022 Patient encounter procedure Birgit COOPER [facility] Start: 11-11-2022 End: 11-11-2022 Emergency department patient visit Isai Hall Facility[facility] Start: 11-04-2022 End: 11-04-2022 Emergency department patient visit Gladys Rodriguez Parveen Facility[facility] Start: 11-04-2022 End: 11-04-2022 Emergency department patient visit [facility] Michael Saini [facility] Start: 10-17-2022 ambulatory ELECTRICIAN SUPERVISOR SUBSTATION Amanda BARRIOS Faci lity:[facility] Start: 10-11-2022 End: 10-11-2022 ambulatory Imad Asaad Facility:[facility] Start: 10-11-2022 End: 10-11-2022 ambulatory HARDBOARD PRESS OPERATOR Amanda Barrios Work Phone: [facility] Work Phone: Start: 10-11-2022 End: 10-11-2022 Patient encounter procedure HARDBOARD PRESS OPERATOR Amanda Barrios Work Phone: [facility] Work Phone: Start: 10-05-2022 End: 10-06-2022 ambulatory Stanislav FRAIRE Facility:[facility] Start: 09-06-2022 End: 09-06-2022 Emergency department patient visit Declan Marina Facility:[facility] Start: 09-06-2022 End: 09-06-2022 Emergency department patient visit HARDBOARD PRESS OPERATOR Amanda Barrios Work Phone: [facility] Work Phone: Start: 08-28-2022 End: 08-29-2022 ambulatory Lorie Gudimella Facility[facility] Start: 08-28-2022 End: 08-29-2022 ambulatory Lorie Gudimella Facility: [place] Start: 08-28-2022 End: 08-28-2022 Lab Drop off Lorie Gudimella [facility] Start: 08-28-2022 End: 08-28-2022 Patient encounter procedure Lorie Gudimella [facility] Start: 08-21-2022 End: 09-07-2022 ambulatory Gunnar HOGAN Facility:[id number] Start: 08-17-2022 End: 08-18-2022 ambulatory Gunnar HOGAN [facility] Start: 08-16-2022 End: 08-18-2022 Observation Gunnar HOGAN [facility] Start: 08-15-2022 ambulatory Gautam Burrows Facility:[facility] Start: 08-15-2022 End: 08-15-2022 Emergency department patient visit Isai Hall Facility[facility] Start: 08-13-2022 End: 08-14-2022 ambulatory FREDDY BARRIOS Facility:[facility] Start: 08-13-2022 End: 08-13-2022 Patient encounter procedure Amanda BARRIOS [facility] [place] Start: 06-27-2022 ambulatory ELECTRICIAN SUPERVISOR SUBSTATION Amanda BARRIOS Faci lity:[facility] Start: 06-12-2022 End: 06-19-2022 ambulatory Gunnar HOGAN Facility:[id number] Start: 06-07-2022 End: 06-10-2022 Evaluation and management of inpatient Amanda Barrios Facility:[facility] Start: 06-07-2022 End: 06-10-2022 Evaluation and management of inpatient HARDBOARD PRESS OPERATOR Amanda Barrios Work Phone: [facility] Work Phone: Start: 04-26-2022 End: 04-27-2022 ambulatory ELECTRICIAN SUPERVISOR SUBSTATION Amandadiogenes BARRIOS Facility:[facility] Start: 04-26-2022 End: 04-26-2022 Patient encounter procedure Amandadiogenes BARRIOS [facility] Start: 04-24-2022 End: 04-24-2022 ambulatory Amanda Robuck Facility:[facility] Start: 04-24-2022 End: 04-24-2022 Patient encounter procedure HARDBOARD PRESS OPERATOR Amanda Barrios Work Phone: [facility] [place] Work Phone: Start: 04-24-2022 End: 04-24-2022 ambulatory HARDBOARD PRESS OPERATOR Amanda Barrios Work Phone: [facility] Work Phone: Start: 04-24-2022 Office outpatient ne w 45 minutes Imad Asaad [facility] Start: 04-11-2022 End: 04-11-2022 Emergency department patient visit Amanda Barrios Facility:[facility] Start: 04-11-2022 End: 04-11-2022 Emergency department patient visit HARDBOARD PRESS OPERATOR Amanda Barrios Work Phone: [facility] Work Phone: Start: 04-03-2022 End: 04-04-2022 Emergency department patient visit Amanda Barrios Facility:[facility] Start: 04-03-2022 End: 04-04-2022 Emergency department patient visit HARDBOARD PRESS OPERATOR Amanda Barrios Work Phone: [facility] Work Phone: Start: 04-03-2022 End: 04-03-2022 Emergency department patient visit Amanda Barrios Facility:[facility] Start: 04-03-2022 End: 04-03-2022 Emergency department patient visit HARDBOARD PRESS OPERATOR Amanda Barrios Work Phone: [facility] Work Phone: Start: 04-01-2022 End: 04-01-2022 Emergency department patient visit Braeden Schmitt Facility:[facility] Start: 04-01-2022 End: 04-01-2022 Emergency department patient visit HARDBOARD PRESS OPERATOR Amanda Barrios Work Phone: [facility] Work Phone: Start: 03-28-2022 End: 03-29-2022 ambulatory ELECTRICIAN SUPERVISOR SUBSTATION Amanda Lange ANTWONJULIO [place] [place] Start: 03-28-2022 End: 03-29-2022 ambulatory ELECTRICIAN SUPERVISOR SUBSTATION Amanda E ROBJULIO [facility] [place] Start: 03-28-2022 End: 03-28-2022 Patient encounter procedure Amanda BARRIOS [facility] [place] Start: 03-19-2022 End: 03-19-2022 Emergency department patient visit Amanda Barrios Facility:[facility] Start: 03-19-2022 End: 03-19-2022 Emergency department patient visit HARDBOARD PRESS OPERATORThomas Barrios Work Phone: [facility] Work Phone: Start: 03-13-2022 End: 03-13-2022 Emergency department patient visit DECLAN GOEL [facility] Start: 03-13-2022 Encounter for other general examination DECLAN GOEL [facility] Start: 03-13-2022 End: 03-13-2022 Emergency department patient visit Declan Goel MD Work Phone: [facility] ED Comment on above: Encounter for psycho logical evaluation (Primary Dx) Start: 03-13-2022 End: 03-13-2022 Patient encounter status Declan Goel MD Work Phone: [facility] ED Start: 03-12-2022 End: 03-13-2022 Emergency department patient visit PHU INTERIANOD [facility] Start: 03-12-2022 End: 03-13-2022 Emergency department patient visit Phu Barker DO Work Phone: [facility] ED Comment on above: Acute alcoholic into xication with complication (HCC) (Primary Dx) Start: 03-09-2022 End: 03-09-2022 Emergency department patient visit Amanda Barrios Facility:[facility] Start: 03-09-2022 End: 03-09-2022 Emergency department patient visit HARDBOARD PRESS OPERATOR Amanda Barrios Work Phone: [facility] Work Phone: Start: 03-05-2022 End: 03-05-2022 Emergency department patient visit Amanda Barrios Facility:[facility] Start: 03-05-2022 End: 03-05-2022 Emergency department patient visit HARDBOARD PRESS OPERATOR Amanda Barrios Work Phone: [facility] Work Phone: Start: 02-20-2022 End: 02-21-2022 Emergency department patient visit Declan Marina Facility:[facility] Start: 02-20-2022 End: 02-21-2022 Emergency department patient visit LOGAN Barrios Work Phone: [facility] Work Phone: Start: 02-19-2022 End: 02-19-2022 Emergency department patient visit Amanda Barrios Facility:[facility] Start: 02-19-2022 End: 02-19-2022 Emergency department patient visit HARDBOARD PRESS OPERATOR Amanda Barrios Work Phone: [facility] Work Phone: Start: 02-18-2022 End: 02-18-2022 Emergency department patient visit Darren Guzman [facility] Start: 10-06-2021 End: 10-06-2021 Off-Site Varun ZURITA [facility] Start: 09-19-2021 End: 09-19-2021 Patient encounter procedure Amanda BARRIOS [facility] Start: 07-27-2021 End: 07-28-[address] NONE LISTED REQUEST Facility:[facility] Start: 07-26-2021 End: 07-26-2021 Emergency department [facility] Start: 07-04-2021 End: 07-04-2021 Lab Drop off Amanda BARRIOS [facility] Start: 07-04-2021 End: 07-04-2021 Patient encounter procedure Amanda BARRIOS [facility] Start: 06-25-2021 End: 06-26-[address] NONE LISTED REQUEST Facility:[facility] Start: 05-31-2021 End: 06-01-2021 ambulatory MARIA E [facility] Start: 05-31-2021 End: 05-31-2021 Subsequent hospital visit by physician ABDIEL Jordan Start: 05-03-2021 End: 05-03-2021 Emergency department patient visit ZAIRE OSUNA [facility] Start: 05-03-2021 End: 05-03-2021 Emergency department patient visit Zaire Osuna MD Work Phone: [facility] Comment on above: Temporary high blood pressure (Primary Dx) Start: 05-03-2021 End: 05-03-2021 Emergency department [facility] Start: 05-02-2021 End: 05-03-2021 Emergency department patient visit Declan Bradshaw MD Work Phone: [facility] ED Comment on above: Alcohol withdrawal s yndrome with complication (HCC) (Primary Dx) Start: 02-05-2021 End: 02-06-2021 Evaluation and management of inpatient Jeffery Bynum MD Facility:[facility] Start: 10-18-2020 Emergency department patient visit [facility] Start: 09-22-2020 End: 09-22-2020 Emergency department patient visit Chilo Glover [facility] Start: 08-19-2020 AUDIT Nini Juan Wolf Work Phone: [id number] [facility] Work Phone: Start: 03-15-2020 Patient encounter procedure Nini Wolf [facility] Medicine Work Phone: Start: 03-12-2020 End: 03-12-2020 Emergency department patient visit [facility] Start: 03-11-2020 End: 03-11-2020 Emergency department patient visit Crescencio Jenae Work Phone: [facility] ED Comment on above: Anxiety state (Prima ry Dx) Start: 03-10-2020 End: 03-10-2020 Emergency department patient visit [place] Start: 03-10-2020 End: 03-10-2020 Emergency department patient visit [facility] Work Phone: [facility] ED Comment on above: Anxiety attack (Prim halima Dx) Start: 03-02-2020 Patient encounter procedure Nini Wolf [facility] Internal Medicine Work Phone: Start: 01-20-2020 Patient encounter procedure Nini Wolf [facility] Internal Medicine Work Phone: Start: 01-06-2020 Patient encounter procedure Nini Wolf [facility] Internal Medicine Work Phone: Start: 12-23-2019 Patient encounter procedure Nini Wolf [facility] Internal Medicine Work Phone: Start: 11-03-2019 Patient encounter procedure Nini Wolf [facility] Internal Medicine Work Phone: Start: 10-23-2019 Patient encounter procedure Nini Wolf -[facility] Internal Medicine Work Phone: Start: 10-13-2019 Patient encounter procedure Nini Wolf -[facility] Internal Medicine Work Phone: Start: 09-08-2019 Patient encounter procedure Nini Wolf -[facility] Internal Medicine Work Phone: Start: 09-03-2019 Patient encounter procedure Nini Wolf -[facility] Internal Medicine Work Phone: Start: 08-13-2019 Patient encounter procedure Nini Wolf [facility] Internal Medicine Work Phone: Start: 06-22-2019 Patient encounter procedure Nini Wolf [facility] Internal Medicine Work Phone: Start: 05-20-2019 Patient encounter procedure Nini Wolf [facility] Internal Medicine Work Phone: Start: 04-17-2019 Patient encounter procedure Nini Wolf [facility] Internal Medicine Work Phone: Start: 04-03-2019 Patient encounter procedure Nini Wolf [facility] Internal Medicine Work Phone: Start: 02-24-2019 Patient encounter procedure Nini Wolf [facility] Internal Medicine Work Phone: Start: 02-17-2019 Patient encounter procedure Nini Wolf [facility] Internal Medicine Work Phone: Start: 01-14-2019 Patient encounter procedure Nini Wolf [facility] Internal Medicine Work Phone: Start: 12-20-2018 End: 12-20-2018 Emergency department patient visit Luis Mo Work Phone: [facility] ED Comment on above: Anxiety state (Prima ry Dx); Alcohol abuse Start: 11-01-2018 End: 11-01-2018 Emergency department patient visit Mundo Guzman Work Phone: [facility] ED Comment on above: Pain of left upper a rm (Primary Dx); Elevated d-dimer Start: 06-21-2018 End: 06-21-2018 [facility] Date Procedure Procedure Detail Performing Clinician Start: 01-25-2023 Streptococcus pyogen es antigen assay DO Ari Aguero Work Phone: Start: 01-25-2023 Urine culture DO Ari Aguero Work Phone: Start: 12-16-2022 SARS-COV-2 PCR, SCRE EN ASYMPTOMATIC NINI MCCOLLUM Start: 12-16-2022 Sars-cov-2 detection by dna/rna Jessica Mcdowell DO Work Phone: Start: 12-15-2022 DRUG SCREEN,URINE NINI C FLORECITA Start: 12-15-2022 Drug tst prsmv instr mnt chem analyzers pr date Jessica Mcdowell DO Work Phone: Start: 12-15-2022 DRUG SCREEN,URINE NINI C FLORECITA Start: 12-15-2022 HCG, URINE, QUALITATIVE NINI MCCOLLUM Start: 12-15-2022 URINALYSIS WITH REFL EX MICROSCOPIC NINI MCCOLLUM Start: 12-15-2022 ACUTE TOXICOLOGY ALBERT EL, BLOOD NINI MCCOLLUM Start: 12-15-2022 CBC W Auto Different ial panel - Blood NINI MCCOLLUM Start: 12-15-2022 Comprehensive metabo lic 2000 panel - Serum or Plasma NINI MCCOLLUM Start: 12-15-2022 Morphology Adan (Bld) [Interp] NINI MCCOLLUM Start: 12-14-2022 ECG 12-LEAD NINI MCCOLLUM Start: 12-14-2022 INITIATE REQUEST TO ANOTHER FACILITY NINI MCCOLLUM Start: 12-14-2022 INSERT PERIPHERAL IV AM Y VEDA Start: 12-14-2022 SALINE LOCK IV NINI DINORAHL EY Start: 12-14-2022 Drug tst prsmv instr mnt chem analyzers pr date Amy Steele MD Work Phone: Start: 12-14-2022 Urnls dip stick/tabl et rgnt auto w/o microscopy Amy Steele MD Work Phone: Start: 12-14-2022 Comprehensive metabo lic panel Amy Steele MD Work Phone: Start: 12-14-2022 Drug screen quantita tive alcohols Amy Steele MD Work Phone: Start: 12-14-2022 RBC shape Nom (Bld) Moni Steele MD Work Phone: Start: 10-11-2022 Ultrasound elastogra phy of liver LOGAN Barrios Work Phone: Start: 08-30-2022 Throat culture Gunnar HOGAN Comment on above: Performed By: #### [id number] ####Verdugo [facility] [id number] [place] [address] Start: 06-07-2022 Plain chest X-ray LOGAN Barrios Work Phone: Start: 04-11-2022 Plain chest X-ray LOGAN Barrios Work Phone: Start: 04-03-2022 Blood culture for ba cteria, including anaerobic screen LOGAN Barrios Work Phone: Start: 04-03-2022 Plain X-ray of right hand LOGAN Barrios Work Phone: Start: 03-12-2022 Drug tst prsmv instr mnt chem analyzers pr date Phu Soliman Mari DO Work Phone: Start: 03-12-2022 Urnls dip stick/tabl et rgnt auto w/o microscopy Phu Soliman Mari DO Work Phone: Start: 03-12-2022 Ct head/brain w/o co ntrast material Phu Janny Altamont DO Work Phone: Start: 03-12-2022 Assay of acetaminophen Phu Barker DO Work Phone: Start: 03-12-2022 Assay of ethanol Phu Barker DO Work Phone: Start: 03-12-2022 Assay of salicylate Rachael nixon Janny Barker DO Work Phone: Start: 03-12-2022 Comprehensive metabo lic panel Phu R Mari DO Work Phone: Start: 05-31-2021 25 hydroxy includes fractions if performed MARIA E BLANCAS Start: 05-31-2021 Lipid panel MARIA E POE Start: 05-31-2021 Comprehensive metabo lic panel Unknown Provider Result Start: 05-31-2021 Lipid panel Unknown Pr ovider Result Start: 05-03-2021 Ecg routine ecg w/le ast 12 lds w/i&r Zaire Osuna MD Work Phone: Start: 05-03-2021 Ct thorax w/contrast material Fredy C Kay DO Work Phone: Start: 05-03-2021 BASIC METABOLIC PANE L W/ REFLEX TO MG FOR LOW K Fredy C Kay DO Work Phone: Start: 05-02-2021 End: 05-03-2021 Gonadotropin chorionic qualitative Fredy C Kay DO Work Phone: Start: 03-02-2020 Comprehensive metabo lic 2000 panel Nini Rickkins Start: 03-02-2020 Hemoglobin glycosylated a1c Nini Wolf Start: 03-02-2020 Iron + TIBC, Serum Nini Wolf Start: 03-02-2020 Lipid panel Nini Wolf Start: 03-02-2020 TSH WITH REFLEX TO F REE T4 IF ABNORMAL Nini Wolf Start: 09-08-2019 Coronavirus 2019 RNA by PCR, Symptomatic Nini Wolf Start: 03-27-2019 Lipid 1996 panel - S marbella or Plasma Amy Steele MD Work Phone: Start: 02-17-2019 1 25 dihydroxy inclu shilpa fractions if performed Nini Wolf Start: 02-17-2019 Assay of ferritin Nini Lurdes dkins Start: 02-17-2019 Assay of folic acid serum Nini Wolf Start: 02-17-2019 Assay of magnesium Nini Wolf Start: 02-17-2019 Blood count complete auto&auto difrntl wbc Nini Wolf Start: 02-17-2019 Comprehensive metabo lic 2000 panel Nini Wolf Start: 02-17-2019 Cyanocobalamin vitamin b-12 Nini Wolf Start: 02-17-2019 Hemoglobin glycosylated a1c Nini Wolf Start: 02-17-2019 Iron + TIBC, Serum Nini Wolf Start: 02-17-2019 Lipid panel Nini Wolf Start: 02-17-2019 OPIATE/OPIOID/BENZO[ EXTENDED ] PRESCRIPTION COMPLIANCE Nini Wolf Start: 02-17-2019 TSH WITH REFLEX TO F REE T4 IF ABNORMAL Nini Wolf Start: 02-17-2019 Valproate [Mass/volu me] in Serum or Plasma Nini Wolf Start: 12-20-2018 Ecg routine ecg w/le ast 12 lds w/i&r Luis Mo Work Phone: Start: 11-01-2018 Blood count complete auto&auto difrntl wbc Mundo Guzman Work Phone: Start: 11-01-2018 Comprehensive metabo lic panel Mundo Guzman Work Phone: Start: 11-01-2018 Fibrin dgradj produc ts d-dimer quantitative Mundo Guzman Work Phone: Start: 11-01-2018 Prothrombin time Mundo Guzman Work Phone: Start: 11-01-2018 Thromboplastin time partial plasma/whole blood Mundo Guzman Work Phone: Start: 06-21-2018 Ecg routine ecg w/le ast 12 lds w/i&r ELVIS CAMPBELL Start: 06-21-2018 Assay of ethanol ELVIS CAMPBELL Start: 06-21-2018 Assay of troponin quantitative ELVIS CAMPBELL Start: 06-21-2018 Blood count complete auto&auto difrntl wbc ELVIS CAMPBELL Start: 06-21-2018 Comprehensive metabo lic panel ELVIS CAMPBELL Start: 06-21-2018 Assay of lactate ELVIS CAMPBELL Start: 06-21-2018 Radiologic exam ches t single view ELVIS CAMPBELL Start: 06-21-2018 Drug screen class list a ELVIS CAMPBELL Start: 06-21-2018 Urnls dip stick/tabl et rgnt auto w/o microscopy ELVIS CAMPBELL Start: 02-11-2017 Loop electrosurgical excision procedure of cervix Nini Martinez [employer] Work Phone: Diabetes mellitus screening Imad Asaad Other Hyperlipidemia screening Dona d Asaad Other LOOP electro excisio n of cervix Nini Wolf Comment on above: Completed: 2017 None (qualifier value) Amanda BARRIOS Plan of Treatment Date Care Activity Detail Author Start: 01-04-2057 Pneumococcal 0-64 ye ars Vaccine (2 of 2 - PPSV23) Pneumococcal 0-64 years Vaccine (2 of 2 - PPSV23) [facility] Start: 01-04-2042 Zoster Vaccines (1 o f 2) Zoster Vaccines (1 of 2) [facility] Start: 04-10-2031 DTaP/Tdap/Td vaccine (3 - Td or Tdap) DTaP/Tdap/Td vaccine (3 - Td or Tdap) [facility] Start: 04-10-2031 DTaP/Tdap/Td vaccine (5 - Td or Tdap) DTaP/Tdap/Td vaccine (5 - Td or Tdap) [facility] Start: 04-10-2031 DTaP/Tdap/Td Vaccine s (4 - Td or Tdap) DTaP/Tdap/Td Vaccines (4 - Td or Tdap) [facility] Start: 03-27-2024 Lipid panel Lipid Panel [facility] Start: 01-25-2023 Bacteria identified in Urine by Culture Urine Culture [facility] Start: 10-12-2022 Influenza vaccination Influenza Vacc ine (#1) [facility] Start: 10-11-2022 [facility] Start: 06-10-2022 [facility] Start: 06-07-2022 Referral to Chemistry Teacher [facility] Start: 06-07-2022 Sleep disorder assessment [facility] Start: 06-07-2022 Hospital admission [facility] Start: 04-03-2022 [facility] Start: 04-03-2022 Bacteria identified in Blood by Culture [facility] Start: 04-03-2022 Blood culture for bacteria, including anaerobic screen Blood Culture [facility] Start: 04-03-2022 [facility] Start: 01-04-2022 [facility] Start: 10-12-2021 Influenza vaccination Flu vacc ine (Season Ended) [facility] Start: 09-11-2021 Influenza vaccination Flu vaccine (# 1) [facility] Start: 12-14-2020 COVID-19 Vaccine (3 - Booster for Pfizer series) COVID-19 Vaccine (3 - Booster for Pfizer series) [facility] Start: 10-12-2020 Influenza vaccination Flu vaccine (# 1) [facility] Start: 10-11-2020 FUV, Provider: Nini Wolf, Status: Pen, Time: 10:00 AM FUV, Provider: Nini Wolf, Status: Pen, Time: 10:00 AM [facility] [address] [facility] Work Phone: Start: 10-11-2020 Patient encounter procedure [facility] Start: 09-08-2020 COVID-19 Vaccine (3 - Booster for Pfizer series) COVID-19 Vaccine (3 - Booster for Pfizer series) [facility] Start: 09-08-2020 COVID-19 Vaccine (3 - Pfizer series) COVID-19 Vaccine (3 - Pfizer series) [facility] Start: 10-13-2019 Influenza vaccination Flu vaccine (# 1) [place] Start: 12-22-2018 End: 12-22-2018 [facility] 12/22/2018 [facility] Psychiatry Parag Le APRN - FOOD PRODUCTS TESTER [address] [place] [address] [phone] [facility] Tele Psych Start: 11-24-2018 End: 11-24-2018 Office Visit [facility] Start: 10-12-2018 Influenza vaccination Flu vaccine (# 1) [place] Start: 12-14-2017 Pneumococcal 0-64 ye ars Vaccine (2 - PCV) Pneumococcal 0-64 years Vaccine (2 - PCV) [facility] Start: 01-04-2013 Cervical cancer screen Cervical canc er screen [place] Start: 01-04-2013 Screening for malign ant neoplasm of cervix [facility] Start: 01-04-2011 DTaP/Tdap/Td vaccine (2 - Tdap) DTaP/Tdap/Td vaccine (2 - Tdap) [place] Start: 01-04-2011 Hepatitis A Vaccines (1 of 2 - Risk 2-dose series) Hepatitis A Vaccines (1 of 2 - Risk 2-dose series) [facility] Start: 01-04-2010 Hepatitis C screening [facility]atitis C [facility] Start: 01-04-2007 HIV screen HIV screen [place], [place] Start: 01-04-2007 HIV screening HIV screen [facility] Start: 01-04-2007 HPV vaccine (1 - Fem faye 3-dose series) HPV vaccine (1 - Female 3-dose series) [place] Start: 01-04-2005 Varicella Vaccine (1 of 2 - 13+ 2-dose series) Varicella Vaccine (1 of 2 - 13+ 2-dose series) [place] Start: 2004 Depression Monitoring Depression Mon [facility] Start: 01-04-2003 DTaP/Tdap/Td vaccine (2 - Tdap) DTaP/Tdap/Td vaccine (2 - Tdap) [place] Start: 01-04-2003 HPV vaccine (1 - Fem faye 2-dose series) HPV vaccine (1 - Female 2-dose series) [place] Start: 10-13-1997 Varicella vaccination Varicell a Vaccines (1 of 2 - 2-dose childhood series) [facility] Start: 01-04-1993 Varicella vaccine (1 of 2 - 2-dose childhood series) Varicella vaccine (1 of 2 - 2-dose childhood series) [facility] Start: 1992 Hepatitis B Vaccines (1 of 3 - 3-dose series) Hepatitis B Vaccines (1 of 3 - 3-dose series) [facility] Start: 1992 Hepatitis C screening Hepatitis C [facility] Start: 1992 Yearly Adult Physical Yearly Adult P hycal [facility] Bacteria identified in Urine by Culture [facility] EKG 12 Lead EKG 12 Lead ECG STAT 12/20/2018 9:33 PM EST [place] EKG 12 Lead EKG 12 Lead ECG Routine 05/03/2021 9:49 AM EDT [facility] Work Phone: End: 12-14-2022 Electrocardiogram, 12-lead [facility] Work Phone: Comment on above: As needed until disc ontinued starting 12/14/2022 Once for 1 Occurrenc es starting 12/14/2022 until 12/14/2022 Erythrocyte sedimentation rate by Photometric method [facility] Hepatitis A virus Ab [Presence] in Serum by Immunoassay [facility] Hepatitis B core antibody measurement [facility] Hepatitis B virus DN A [#/volume] (viral load) in Serum or Plasma by MOISES with probe detection [facility] Hepatitis B virus DN A [log units/volume] (viral load) in Serum or Plasma by MOISES with probe detection [facility] Hepatitis B virus DN A [Units/volume] (viral load) in Serum or Plasma by MOISES with probe detection [facility] Hepatitis B virus surface Ab [Presence] in Serum [facility] Hepatitis B virus surface Ag [Presence] in Serum or Plasma by Immunoassay [facility] Hepatitis C virus RN A [log units/volume] (viral load) in Serum or Plasma by MOISES with probe detection [facility] HIV 1+2 Ab+HIV1 p24 Ag [Presence] in Serum or Plasma by Immunoassay [facility] Measurement of Hepatitis delta virus antibody [facility] Patient Education [facility] Work Phone: Patient referral [facility] Work Phone: End: 11-01-2018 VL DUP UPPER EXTREMITY VENOUS LEFT VL DUP UPPER EXTREMITY VENOUS LEFT Imaging Routine Once for 1 Occurrences starting 11/01/2018 until 11/01/2018 [place] Comment on above: Once for 1 Occurrenc es starting 11/01/2018 until 11/01/2018 [facility] NEGATED: Highlighted row has been ruled out! Planned Goals not documented [facility] Work Phone: Immunizations Immunization Date Immunization Notes Care Provider Bianka soto 04-01-2022 tetanus toxoid, redu perry diphtheria toxoid, and acellular pertussis vaccine, adsorbed HARDBOARD PRESS OPERATOR Amanda Robuck Work Phone: [facility] 04-10-2021 tetanus toxoid, redu perry diphtheria toxoid, and acellular pertussis vaccine, adsorbed HARDBOARD PRESS OPERATOR Amanda Robuck Work Phone: [facility] 07-14-2020 COVID-19 mRNA, Comirnaty (Pfizer) HARDBOARD PRESS OPERATOR Amanda Robuck Work Phone: [facility] 06-23-2020 COVID-19 mRNA, Comirnaty (Pfizer) HARDBOARD PRESS OPERATOR Amanda Robuck Work Phone: [facility] 11-19-2017 influenza, seasonal, injectable; Translations: [Fluzone Quadravalent] Amanda ROBUCK [facility] Comment on above: Reason for Medicatio n: Other (see comment) 11-19-2017 influenza virus vaccine, unspecified formulation Amy Steele MD Work Phone: [facility] Work Phone: 12-14-2016 pneumococcal polysaccharide vaccine, 23 valent [facility] 05-01-2016 tetanus toxoid, redu perry diphtheria toxoid, and acellular pertussis vaccine, adsorbed Amanda ROBUCK [facility] 04-23-2012 influenza, seasonal, injectable Amanda ROBUCK [facility] 04-23-2012 tetanus toxoid, redu perry diphtheria toxoid, and acellular pertussis vaccine, adsorbed Amanda ROBUCK [facility] Comment on above: Reason for Medicatio n: Other (see comment) 09-15-1997 DTaP, unspecified formulation Amanda ROBUCK [facility] 09-15-1997 measles, mumps and rubella virus vaccine Amanda ROBUCK [facility] NEGATED: Highlighted row has not occurred!11-30-2022 influenza virus vaccine, unspecified formulation CARRIE PEREZ [facility] NEGATED: Highlighted row has not occurred!11-30-2022 SARS-CoV-2 mRNA (tozinameran 5y-11y) vaccine CARRIE PEREZ [facility] NEGATED: Highlighted row has not occurred!03-28-2022 influenza virus vaccine, unspecified formulation Amanda BARRIOS [facility] Payers Date Payer Category Payer Self-pay [id number] 2018 Medicaid [id number] 2018 Unknown 2016 Unknown CANDICERICHARAnisa [facility] MEDICAID xxxxxxxxxxx 2016-Present [phone] CLAIMS DEPARTMENT [address] [place] [address] xxxxxxxxxxx [id number]. [id number] 1992 Unknown [id number] 2.840.1.556633.3.579.2.182 1992 Unknown [id number] 2.16840.1.155428.3.579.2.185 1992 Unknown [id number] 2.16840.1.608426.3.579.2.174 1992 Unknown [id number] 2.16840.1.729801.3.579.2.174 1992 Unknown [id number] 2.16.840.1.460659.3.579.2.196 1992 Unknown [id number] 2.16.840.1.486101.3.579.2.177 1992 Unknown [id number] 2.16.840.1.412625.3.579.2.204 1992 Unknown [id number] 2.16.840.1.900227.3.579.2.593 1992 Unknown [id number] 2.16.840.1.093129.3.579.2.593 1992 Unknown [id number] 2.16.840.1.446448.3.579.2.176 1992 Unknown [id number] 2.16.840.1.660443.3.579.2.175 1992 Unknown [id number] 2.16.840.1.720045.3.579.2.175 1992 Unknown [id number] 2.16.840.1.510074.3.579.2.1243 1992 Unknown [id number] 2.16.840.1.417216.3.579.2.727 1992 Unknown [id number] 2.16.840.1.724417.3.579.2.727 1992 Unknown [id number] 2.16.840.1.951574.3.579.2.727 1992 Unknown [id number] 2.16.840.1.778420.3.579.2.727 1992 Unknown [id number] 2.16.840.1.245471.3.579.2.727 1992 Unknown [id number] 2.16.840.1.778813.3.579.2.727 1992 Unknown [id number] 2.16.840.1.244140.3.579.2.727 1992 Unknown [id number] 2.16.840.1.100294.3.579.2.727 1992 Unknown [id number] 2.16.840.1.926306.3.579.2 1992 Unknown [id number] 2.16.840.1.214873.3.579.2 1992 Unknown [id number] 2.16.840.1.390268.3.579.2 1992 Unknown [id number] 2.16.840.1.259600.3.579.2 1992 Unknown [id number] 2.16.840.1.789652.3.579.2 1992 Unknown [id number] 2.16.840.1.503428.3.579.2 1992 Unknown [id number] 2.16.840.1.272857.3.579.2 1992 Unknown [id number] 2.16.840.1.904836.3.579.2 1992 Unknown [id number] 2.16.840.1.516264.3.579.2 1992 Unknown [id number] 2.16.840.1.672204.3.579.2 1992 Unknown [id number] 2.16.840.1.964768.3.579.2 1992 Unknown [id number] 2.16.840.1.149873.3.579.2 1992 Unknown [id number] 2.16.840.1.054013.3.579.2 1992 Unknown [id number] 2.16.840.1.567033.3.579.2 1992 Unknown [id number] 2.16.840.1.953766.3.579.2 1992 Unknown [id number] 2.16.840.1.299929.3.579.2 1992 Unknown [id number] 2.16.840.1.783187.3.579.27 1992 Unknown [id number] 2.16.840.1.631951.3.579.2.727 1959 Unknown [id number] Medicare Medicare [id number] Unknown [facility] [id number] Unknown [id number] 2.16.840.1.942321.3.579.2.531 Unknown [id number] 2.16.840.1.410325.3.579.2.531 Unknown [id number] 2.16.840.1.364485.3.579.2.531 Unknown [id number] 2.16.840.1.901421.3.579.2.531 Unknown [id number] 2.16.840.1.178715.3.579.2.531 Unknown [id number] 2.16.840.1.456793.3.579.2.531 Unknown [id number] 2.16.840.1.172105.3.579.2.531 Unknown [id number] 2.16.840.1.744262.3.579.2.531 Unknown [id number] 2.16.840.1.363645.3.579.2.531 Unknown [id number] 2.16.840.1.199145.3.579.2.531 Unknown [id number] 2.16.840.1.368313.3.579.2.531 Unknown [id number] 2.16.840.1.411931.3.579.2.531 Unknown [id number] 2.16.840.1.959988.3.579.2.531 Unknown [id number] 2.16.840.1.182789.3.579.2.531 Unknown [id number] 2.16.840.1.556851.3.579.2.531 Unknown [id number] 2.16.840.1.494600.3.579.2.531 Unknown [id number] 2.16.840.1.013168.3.579.2.531 Unknown [id number] 2.16.840.1.773517.3.579.2.531 Social History Date Type Detail Facility Start: 11-01-2018 End: 03-12-2022 Tobacco smoking status NHIS Current every day smoker [place], [place] History of tobacco use Cigarette Smoker [place] Start: 11-01-2018 End: 03-13-2022 Cigarettes smoked current (pack per day) - Reported [place] Comment on above: 4 [employer]; Start: 11-01-2018 Alcohol intake No [place], [place] Start: 1990 Sex Assigned At Female M [place] Start: 03-10-2020 End: 03-12-2022 Tobacco use and exposure Never used [place] Start: 03-10-2020 End: 03-13-2022 Alcohol intake Current drinker of alcohol (finding) [place] Start: 04-23-2021 End: 12-14-2022 Exposure to SARS-CoV-2 (event) Not sure [place] Start: 12-20-2018 Alcohol Comment 8-12 beers karan ly plus liquor at times [place] Tobacco smoking consumption unknown [facility] Start: 03-14-2021 End: 05-03-2021 Alcohol intake Ex-drinker (finding) [facility] [employer] Phone: Start: 05-03-2021 History SDOH Alcohol Comment currently at [facility] for alcohol. last drink was 12 days ago [facility] [employer] Phone: Start: 07-04-2021 End: 11-30-2022 Tobacco smoking status Heavy tobacco smoker (finding) [facility] Tobacco smoking status Never [facility] Start: 02-19-2022 End: 01-08-2023 Tobacco smoking status NHIS Never smoked tobacco (finding) [facility] Start: 03-09-2022 End: 03-04-2023 Tobacco smoking status NHIS Smoker (finding) [facility] Start: 03-12-2022 Alcohol Comment drank 1/5 toda y 03/12/2022---currently at [facility] for alcohol. last drink was 12 days ago [facility] Work Phone: Start: 03-13-2022 History SDOH Alcohol Frequency 5 [facility] Work Phone: Start: 1990 Sex Assigned At Not on file [facility] Work Phone: NEGATED: Highlighted row - - [facility] Work Phone: Goals Date Patient Goal Desired Activity /State Functional Status Date Assessment Result Facility 2023 Functional Status N/A [facility] 2023 Functional Status [facility] 01-02-2023 Functional Status N/A [facility] 12-10-2022 Functional Status N/A [facility] 12-10-2022 Functional Status N/A [facility] 11-30-2022 Functional Status N/A [facility] 11-04-2022 Functional Status N/A [facility] 08-17-2022 Functional Status No [facility] 08-16-2022 Functional Status N/A [facility] 08-13-2022 Functional Status N/A [facility] 06-10-2022 Functional status Patient at Baseline [facility] Work Phone: 07-26-2021 Functional Status N/A [facility] NEGATED: Highlighted row Functional performance Functional status health issues are not documented Disease [facility] Work Phone: Mental Status Date Assessment Result Facility 06-10-2022 Cognitive function Cognitive Sta tus Patient at Baseline [facility] Work Phone: NEGATED: Highlighted row Cognitive function [Interpretation] Cognitive status health issues are not documented Disease [facility] Work Phone: Clinical Notes 02-05-2021 to 01-06-2023 Note Date & Type Note Facility 01-06-2023 Note Kartik [facility] Comment on above: Result Comment: Elec tronically Signed By: Elisa BLANK\.br\Date and Time Signed: 01/06/23 10:27 EST\.br\Electronically Co-Signed By: Endy Raphael DO\.br\Date and Time Co-Signed: 01/06/23 12:24 EST 01-06-2023 Evaluation + Plan note Extrac jose from: Title:Discharge Note Author:Shabana BLANK nee Date:01/06/23 Hemodynamically stable condi tion Discharged to - Home independently Discharge Status: Improved Discharge Instructions Given: To patient Discharge disposition: Home Prescriptions reviewed with Patient 65 minutes spent in discharge time with patient, reviewing chart, [facility] note, neurology, collaborating MD, nursing staff, CRM, Discharge Diet(s): Regular, Fat Modified- Low cholesterol, Low Sodium- 2000 mg (01/05/23 15:24:00) Prescriptions Zofran 4 mg Tab, 4 mg= 1 tab(s), Oral, q6hr, PRN Home acetaminophen 325 mg Tab, 650 mg= 2 tab(s), Oral, q6hr, PRN folic acid 1 mg Tab, 1 mg= 1 tab(s), Oral, Daily gabapentin 800 mg Tab, 800 mg= 1 tab(s), Oral, TID Invega 3 mg oral tablet, extended release, 3 mg= 1 tab(s), Oral, Bedtime propranolol, 40 mg, BID Therapeutic Multiple Vitamin Tab, Oral, Daily thiamine 100 mg Tab, 100 mg= 1 tab(s), Oral, Daily With When Contact Information Anthony SINGLETARY, SALOMÓN Singh Within 2 to 4 weeks [address] [place] [address]- Additional Instructions: [facility] Additional Instructions: [facility] [place] [facility]: [phone] Additional Instructions: [facility] [phone] Additional Instructions: Chemical Dependency: Additional Instructions: Diamante Cristofer Within 2 to 4 days [address], [address] [place] [address] [facility] (1) Additional Instructions: Alcohol Withdrawal Syndrome, [id number] Alcohol Use Disorder Alcohol Intoxication, Ycsw-zy-Eulr Alcohol Abuse and Nutrition Alcohol Abuse and Dependence Information, Adult Extracted from: Title:APSO Note- Neurology Author:Awa BAUTISTA, Kris Chatman Date:01/06/23 The patient is a 33-year-old right-handed white female with a history of Polysubstance abuse including alcohol abuse who was admitted to the hospital for possible seizure after an episode manifest as Loss of consciousness with some reported abnormal movements. The patient has had recurrent episodes associated with alcohol withdrawal in the past according to the patient. Patient likely had a provoked seizure associated with polysubstance abuse. I cannot completely exclude new onset of idiopathic focal seizure disorder with secondary generalization or generalized seizure disorder. There is no evidence of a structural brain lesion contributed dating to a focal seizure disorder. Given the high morbidity and mortality associated with seizure disorder the patient is admitted to the hospital for further workup and evaluation and neurological assessment. I I reviewed the EEG Which is normal without evidence of underlying epileptiform activity. I will make further recommendations regarding antiepileptic medications based on the above results. I recommend continuing to monitor the patient for recurrent seizures and for alcohol withdrawal. I counseled the patient on the possible diagnoses, evaluation, treatment options. I answered all questions. I discussed the case with the hospitalist Elisa Rodrigues FOOD PRODUCTS TESTER [2] 1. Involuntary movements (R25.9: Unspecified abnormal involuntary movements) 1. Palpitations, (R00.2: Palpitations)Palpitations 2. Alcohol abuse with withdrawal (F10.139: Alcohol abuse with withdrawal, unspecified) 3. Transaminitis (R74.01: Elevation of levels of liver transaminase levels) 4. Bipolar disorder (F31.9: Bipolar disorder, unspecified) 6. Restless leg syndrome (G25.81: Restless legs syndrome) 7. History of hepatitis C (Z86.19: Personal history of other infectious and parasitic diseases) 8. History of substance abuse (F19.11: Other psychoactive substance abuse, in remission) 9. Tobacco abuse (Z72.0: Tobacco use) 10. Obesity (E66.9: Obesity, unspecified) Extracted from: Title:Admission H & P Author:EDISON AGUILAR Gnunar Lurdes Date:01/05/23 1. Involuntary movements (R2 5.9: Unspecified abnormal involuntary movements) Note when patient was admitted in August that witnessed an episode when awoken lifting of her upper extremities which was transient in nature. Advised by the emergency produce department manager that patient had seized at home but when interviewing patient at the bedside she states this was not witnessed when asking her to describe what led her to believe that she had seized at home somewhat nonspecific questionable whether she had any loss of consciousness for she states she had a sudden awareness that there was emesis on her clothing, she did not have any incontinence or tongue biting. She states that she has been witnessed in the past as having seizure activity has included incontinence by her mother but not on this occasion. Believes her last seizure was 4 months prior. Patient denies any head trauma, headaches or any recent focal deficits.? If patient is experiencing just significant tremors from alcohol role alone versus true seizure activity versus other ie med effect note patient states she had not taken her Invega for at least 3 days and took it last evening. ? Clonidine causing irritability note tox screen was positive for benzodiazepines but she has been on recent ED visits given Ativan as she is previously declined admission to prevent withdrawal she states she was at an inpatient rehab facility a week ago and just released 1 week prior. I have been advised by the emergency produce department manager that the [facility] program called [facility] would be willing to accept the patient after in acceptable period ofTime of no seizure activity. We will ask for an EEG. We will ask for neurology to evaluate. We will ask further comment also light of this presentation versus benefits of continuance of gabapentin which at times can be used during periods of alcohol abuse, can be used for mood disorder also for restless leg syndrome symptoms in light of her presentation transiently holding this agent (patient had truly seized with this make it more likely for her to seize again by holding this agent) will likely contact the [facility] program for eventual transfer to inpatient program or observed and evaluated neurologically. We will ask for web content & social media manager to assist Ordered: Consult to Neurology EEG 2. Alcohol abuse with withdrawal (F10.139: Alcohol abuse with withdrawal, unspecified) Patient is on a CIWA protocol. Note I was advised that patient had a CIWA score of 16 in the emergency department was for this reason with the anticipation that patient would require hourly checks and with her prior admission presenting with significant agitation that she would require close observation. However shortly after patient arrived to the ICU as I interviewed her though somewhat tangential and anxious and somewhat restless cooperative, appreciative and remorseful. She expressed definitive interest in getting assistance from a rehab facility. We will have a multivitamin, folate and thiamine note patient states tangentially that she has had difficulty with her memory and concentration for several months 3. Transaminitis (R74.01: Elevation of levels of liver transaminase levels) With her history above AST exceeding the ALT suspect this is mostly alcohol related but note history of hepatitis 4. Bipolar disorder (F31.9: Bipolar disorder, unspecified) Have ordered gabapentin but will discuss with neurology in light of above ? If its exceed risks. As patient states she had not taken her Invega for at least 3 days received a dose last evening will transiently hold this being evaluated for above 5. Palpitations (R00.2: Palpitations) Likely significant if not exclusive role of alcohol withdrawal in addition to underlying significantly anxiety with above mood disorder. Question role of Invega question role of other pharmacologic fluids. Noted on a prior hospitalization patient's tox screen been positive for cocaine and methamphetamines. Tox screen was negative for these substances on this presentation. Patient also implies tangentially that she thought one of her physicians was going to arrange removal of her thyroid because of an abnormal thyroid. She was somewhat vague when attempting to gain further insight. She states she was initially evaluated for her thyroid due to episodic unexplained diaphoresis this could also be related to her chronic alcohol use in intermittent withdrawal. Potassium is within normal limits, will check serum magnesium, be complete we will check thyroid function studies. Note patient states she uses clonidine only for her heart racing I suspect however it was used for a prior history of opioid abuse. Patient states she only uses it as needed . Continue Inderal Ordered: TSH With T4fr Reflex 6. Restless leg syndrome (G25.81: Restless legs syndrome) On gabapentin see above 7. History of hepatitis C (Z86.19: Personal history of other infectious and parasitic diseases) Patient states from her remote IV drug abuse she states was 5 years prior. Chart suggest also a history of hepatitis B she cannot confirm this and I cannot verify this. Note above regarding LFTs 8. History of substance abuse (F19.11: Other psychoactive substance abuse, in remission) As suggested above when admitted in August tox cream was positive for cocaine and methamphetamines which likely is responsible for patient's weakness transient tonic activity when I had evaluated her in August in the emergency department prior to admission note above. Patient had been seen previously at a methadone clinic had been on methadone with a prior history of narcotic abuse. Patient states her last use of IV heroin was 5 years prior. Screen on this presentation positive for benzodiazepines but she has had emergency department visitations both here in [place] with withdrawal symptoms and had access to Ativan, patient implies over a week ago at a inpatient facility in [place] described above been given phenobarbital which could explain barbiturates and a tox screen. 9. Tobacco abuse (Z72.0: Tobacco use) We will provide nicotine patch for her 10. Obesity (E66.9: Obesity, unspecified) Orders: acetaminophen, 650 mg = 2 tab(s), Tab, Oral, q6hr PRN Pain, Routine, Start date 01/05/23 7:32:00 EST, 01/05/23 7:32:00 EST folic acid, 1 mg = 1 tab(s), Tab, Oral, Daily, Routine, Start date 01/05/23 9:00:00 EST, 01/05/23 7:03:00 EST gabapentin, 800 mg = 1 tab(s), Tab, Oral, TID, Routine, Start date 01/05/23 8:00:00 EST, 01/05/23 7:00:00 EST lorazepam, 1 mg = 0.5 mL, Injection, IV Push, q1hr PRN Anxiety, Routine, Start date 01/05/23 7:03:00 EST, 01/05/23 7:03:00 EST lorazepam, 1 mg = 1 tab(s), Tab, Oral, QID PRN Anxiety, Routine, Start date 01/05/23 7:03:00 EST, 01/05/23 7:03:00 EST multivitamin, 1 tab(s), Tab, Oral, Daily, Routine, Start date 01/05/23 9:00:00 EST ondansetron, 4 mg = 2 mL, Injection, IV Push, q6hr PRN Nausea, Routine, Start date 01/05/23 7:32:00 EST, 01/05/23 7:32:00 EST propranolol, 40 mg = 1 tab(s), Tab, Oral, BID, Routine, Start date 01/05/23 9:00:00 EST, 01/05/23 6:59:00 EST Sodium Chloride 0.9% intravenous solution 1,000 mL, 1,000 mL, IV, 125 mL/hr, Routine, Start date 01/05/23 7:32:00 EST, 8 hour(s), Total volume (mL): 1,000, 73 kg, 1.77, m2 thiamine, 100 mg = 1 tab(s), Tab, Oral, Daily, Routine, Start date 01/05/23 9:00:00 EST, 01/05/23 7:03:00 EST Basic Metabolic Panel Cardiac Monitoring CBC w/ Auto Diff Clinical [place] Withdrawal Assessment Clinical [place]wood Withdrawal Assessment Clinical [place] Withdrawal Assessment Clinical [place] Withdrawal Assessment Communication Order Physician to Nursing Elevate Head of Bed Ethanol Level Hepatic Function Panel Magnesium Level Notify Provider Vital Signs Notify Provider Vital Signs Phosphorus Level Place in Status Precautions Precautions Precautions Regular Diet Resuscitation Status - Full Vital Signs Vital Signs Vital Signs Vital Signs Vital Signs Weight She was admitted as an observation with the anticipation she would not require 2 midnight stay Extracted from: Title:Consult Note Neurology Author:Sekou Mi LPN, Lisa M Date:01/05/23 The patient is a 33-year-old right-handed white female with a history of Polysubstance abuse including alcohol abuse who was admitted to the hospital for possible seizure after an episode manifest as Loss of consciousness with some reported abnormal movements. The patient has had recurrent episodes associated with alcohol withdrawal in the past according to the patient. Patient likely had a provoked seizure associated with polysubstance abuse. I cannot completely exclude new onset of idiopathic focal seizure disorder with secondary generalization or generalized seizure disorder. There is no evidence of a structural brain lesion contributed dating to a focal seizure disorder. Given the high morbidity and mortality associated with seizure disorder the patient is admitted to the hospital for further workup and evaluation and neurological assessment. I will obtain a routine EEG to assess for underlying epileptiform activity. I will make further recommendations regarding antiepileptic medications based on the above results. I recommend continuing to monitor the patient for recurrent seizures and for alcohol withdrawal. I counseled the patient on the possible diagnoses, evaluation, treatment options. I answered all questions. I discussed the case with the hospitalist Elisa Rodrigues [employer] 1. Involuntary movements (R25.9: Unspecified abnormal involuntary movements) 2. Alcohol abuse with withdrawal (F10.139: Alcohol abuse with withdrawal, unspecified) 3. Transaminitis (R74.01: Elevation of levels of liver transaminase levels) 4. Bipolar disorder (F31.9: Bipolar disorder, unspecified) 5. Palpitations (R00.2: Palpitations) 6. Restless leg syndrome (G25.81: Restless legs syndrome) 7. History of hepatitis C (Z86.19: Personal history of other infectious and parasitic diseases) 8. Tobacco abuse (Z72.0: Tobacco use) 9. Obesity (E66.9: Obesity, unspecified) Extracted from: Title:ED Note Author:Kerry Linton DO Date :01/05/23 Alcohol abuse with withdrawa l (F10.139: Alcohol abuse with withdrawal, unspecified) Transaminitis (R74.01: Elevation of levels of liver transaminase levels) Orders: diazepam, 5 mg = 1 tab(s), Tab, Oral, Once, Stop date 01/05/23 1:38:00 EST, STAT, Start date 01/05/23 1:38:00 EST, 01/05/23 1:38:00 EST lorazepam, 2 mg = 1 mL, Injection, IV Push, Once, Stop date 01/05/23 3:00:00 EST, Routine, Start date 01/05/23 3:00:00 EST, 01/05/23 2:52:00 EST Sodium Chloride 0.9% intravenous solution 1,000 mL, 1,000 mL, IV, 983.61 mL/hr, for 30 day(s), Stop date 02/04/23 1:37:00 EST, STAT, Start date 01/05/23 1:38:00 EST, 61 minute(s), Total volume (mL): 1,000, 73 kg, 1.77, m2 Automated Diff Basic Metabolic Panel Beta hCG Qual CBC w/ Auto Diff Continuous Pulse Oximetry CT Head or Brain w/o Contrast CT Spine Cervical w/o Contrast Drug Screen Urine ECG 12 Lead Adult ED Cardiac Monitoring eGFR Ethanol Level Extra SST Tube Hepatic Function Panel Oxygen Therapy PT & PTT Routine Capillary Glucose POC Troponin 0 Hr. UA With Cult Reflex XR Chest Single View XR Knee Complete 4+ Views Left [facility]11-25-2023 Hospital Discharge instructions Patient Education 2023 15:26:41 Alcohol Withdrawal Syndrome, Yldc-zl-Uomu Alcohol Withdrawal Syndrome When a person who drinks a lot of alcohol stops drinking, he or she may have unpleasant and serioussymptoms. These symptoms are called alcohol withdrawal syndrome. This condition may be mild or severe. It can be life-threatening. This condition can cause: Shaking that you cannot control (tremor). Sweating. Headache. Feeling fearful, upset, grouchy, or depressed. Trouble sleeping (insomnia). Nightmares. Fast or uneven heartbeats (palpitations). Alcohol cravings. Feeling sick to your stomach (nausea). Throwing up (vomiting). Being bothered by light and sounds. Confusion. Trouble thinking clearly. Not being hungry (loss of appetite). Big changes in mood (mood swings). If you have all of the following symptoms at the same time, get help right away: High blood pressure. Fast heartbeat. Trouble breathing. Seizures. Seeing, hearing, feeling, smelling, or tasting things that are not there (hallucinations). These symptoms are known as delirium tremens (DTs). They must be treated at the hospital right away. Follow these instructions at home: Take oixa-cux-oapjvjc and prescription medicines only as told by your doctor. This includes vitamins. Do not drink alcohol. Do not drive until your doctor says that this is safe for you. Have someone stay with you or be available in case you need help. This should be someone you trust.This person can help you with your symptoms. He or she can also help you to not drink. Drink enough fluid to keep your pee (urine) pale yellow. Think about joining a support group or a treatment program to help you stop drinking. Keep all follow-up visits as told by your doctor. This is important. Contact a doctor if: Your symptoms get worse. You cannot eat or drink without throwing up. You have a hard time not drinking alcohol. You cannot stop drinking alcohol. Get help right away if: You have fast or uneven heartbeats. You have chest pain. You have trouble breathing. You have a seizure for the first time. You see, hear, feel, smell, or taste something that is not there. You get very confused. Summary When a person who drinks a lot of alcohol stops drinking, he or she may have serious symptoms. Thisis called alcohol withdrawal syndrome. Delirium tremens (DTs) is a group of life-threatening symptoms. You should get help right away if you have these symptoms. Think about joining an alcohol support group or a treatment program. This information is not intended to replace advice given to you by your health care provider. Make sure you discuss any questions you have with your health care provider. Document Revised: 12/22/2021 Document Reviewed: 12/19/2020 [employer] Patient Education 2022 [email or web address]. 2023 15:26:41 Alcohol Use Disorder Alcohol Use Disorder Alcohol use disorder is a condition in which drinking disrupts daily life. People with this condition drink too much alcohol and cannot control their drinking. Alcohol use disorder can cause serious problems with physical health. It can affect the brain, heart, and other internal organs. This disorder can raise the risk for certain cancers and cause problems with mental health, such as depression or anxiety. What are the causes? This condition is caused by drinking too much alcohol over time. Some people with this condition drink to cope with or escape from negative life events. Others drink to relieve pain or symptoms of mental illness. What increases the risk? You are more likely to develop this condition if: You have a family history of alcohol use disorder. Your culture encourages drinking to the point of becoming drunk (intoxication). You had a mood or conduct disorder in childhood. You have been abused. You are an adolescent and you: ?Have poor performance in school. ?Have poor supervision or guidance. ?Act on impulse and like taking risks. What are the signs or symptoms? Symptoms of this condition include: Drinking more than you want to. Trying several times without success to drink less. Spending a lot of time thinking about alcohol, getting alcohol, drinking, or recovering from drinking. Continuing to drink even when it is causing serious problems in your daily life. Drinking when it is dangerous to drink, such as before driving a car. Needing more and more alcohol to get the same effect you want (building up tolerance). Having symptoms of withdrawal when you stop drinking. Withdrawal symptoms may include: ?Trouble sleeping, leading to tiredness (fatigue). ?Mood swings of depression and anxiety. ?Physical symptoms, such as a fast heart rate, rapid breathing, high blood pressure (hypertension),fever, cold sweats, or nausea. ?Seizures. ?Severe confusion. ?Feeling or seeing things that are not there (hallucinations). ?Shaking movements that you cannot control (tremors). How is this diagnosed? This condition is diagnosed with an assessment. Your health care provider may start by asking threeor four questions about your drinking, or he or she may give you a simple test to take. This helps to get clear information from you. You may also have a physical exam or lab tests. You may be referred to a substance abuse counselor. How is this treated? With education, some people with alcohol use disorder are able to reduce their drinking. Many with this disorder cannot change their drinking behavior on their own and need help from substance use specialists. These specialists are counselors who can help diagnose how severe your disorder is and what type of treatment you need. Treatments may include: Detoxification. Detoxification involves quitting drinking with supervision and direction of health care providers. Your health care provider may prescribe prescription medicines within the first weekto help lessen withdrawal symptoms. Alcohol withdrawal can be dangerous and life-threatening. Detoxification may be provided in a home, community, or primary care setting, or in a hospital or substance use treatment facility. Counseling. This may involve motivational interviewing (TN), family therapy, or cognitive behavioral therapy (CBT). It is provided by substance use treatment counselors or professional therapists. A counselor can address the things you can do to change your drinking behavior and how to maintain thechanges. Talk therapy aims to: ?Identify your positive motivations to change. ?Identify and avoid the things that trigger your drinking. ?Help you learn how to plan your behavior change. ?Develop support systems that can help you sustain the change. Medicines. Medicines can help treat this disorder by: ?Decreasing cravings. ?Decreasing the positive feeling you have when you drink. ?Causing an uncomfortable physical reaction when you drink (aversion therapy). [place] help groups such as Alcoholics Anonymous (AA). These groups are led by people who have quit drinking. The groups provide emotional support, advice, and guidance. Some people with this condition benefit from a combination of treatments provided by specialized substance use treatment centers. Follow these instructions at home: Medicines Take hwob-dkw-pdmowbn and prescription medicines only as told by your health care provider. Ask before starting any new medicines, herbs, or supplements. General instructions Ask friends and family members to support your choice to stay sober. Avoid situations where alcohol is served. Create a plan to deal with tempting situations. Attend support groups regularly. Practice hobbies or activities you enjoy. Do not drink and drive. Keep all follow-up visits as told by your health care provider. This is important. How is this prevented? If you drink alcohol: ?Limit how much you use to: ?0 1 drink a day for non women. ?0 2 drinks a day for men. ?Be aware of how much alcohol is in your drink. In the [place] one drink equals one 12 oz bottle of beer (355 mL), one 5 oz glass of wine (148 mL), or one 1 oz glass of hard liquor (44 mL). If you have a mental health condition, seek treatment. Develop a healthy lifestyle through: ?Meditation or deep breathing. ?Exercise. ?Spending time in nature. ?Listening to music. ?Talking with a trusted friend or family member. If you are an adolescent: ?Do not drink alcohol. Avoid gatherings where you might be tempted. ?Do not be afraid to say no if someone offers you alcohol. Speak up about why you do not want to drink. Set a positive example for others around you by not drinking. ?Build relationships with friends who do not drink. Where to find more information Substance Abuse and Mental Health Services Administration: samhsa.gov Alcoholics Anonymous: aa.org Contact a health care provider if: You cannot take your medicines as told. Your symptoms get worse or you experience symptoms of withdrawal when you stop drinking. You start drinking again (relapse) and your symptoms get worse. Get help right away if: You have thoughts about hurting yourself or others. If you ever feel like you may hurt yourself or others, or have thoughts about taking your own life,get help right away. Go to your nearest emergency department or: Call your local emergency services (943 in the [place] Call a suicide crisis helpline, such as the National Suicide Prevention Lifeline at or 671 in the [place] This is open 24 hours a day in the [place] Text the Crisis Text Line at 543081 (in the [place] Summary Alcohol use disorder is a condition in which drinking disrupts daily life. People with this condition drink too much alcohol and cannot control their drinking. Treatment may include detoxification, counseling, medicines, and support groups. Ask friends and family members to support you. Avoid situations where alcohol is served. Get help right away if you have thoughts about hurting yourself or others. This information is not intended to replace advice given to you by your health care provider. Make sure you discuss any questions you have with your health care provider. Document Revised: 12/22/2021 Document Reviewed: 12/17/2019 [employer] Patient Education 2022 [email or web address]. 2023 15:26:41 Alcohol Intoxication, Agko-kh-Loli Alcohol Intoxication Alcohol intoxication happens when you cannot think clearly or function well (get impaired) after drinking alcohol. This can happen after just one drink. The effect that alcohol has on how you think and function depends on: How much alcohol you drank. Your age, your weight, and whether you are a man or a woman. How often you drink alcohol. If you have other medical problems. Alcohol intoxication can range from mild to very bad. It can be dangerous, especially if you: Drink a large amount of alcohol in a short time (binge drink). ?For women, binge drinking is having four or more drinks at one time. ?For men, binge drinking is having five or more drinks at one time. Take certain drugs or medicines. If you or anyone around you seems intoxicated: Tell someone. Get help from someone. Follow these instructions at home: Eating and drinking Ask your doctor if alcohol is safe for you. ?If your doctor says that alcohol is safe for you, limit how much you drink to no more than 1 drinka day for women who are not and 2 drinks a day for men. One drink equals one of these: ?12 oz (355 mL) of beer. ?5 oz (148 mL) of wine. ?1 oz (44 mL) of hard liquor. ?Do not drink alcohol if: ?Your doctor tells you not to drink. ?You are , may be , or are planning to get . ?You are under the legal drinking age (21 years old in the [place] ?You are taking medicines that you should not take with alcohol. ?Alcohol causes your medical problem to get worse. ?You have to drive or do activities that need you to be alert. ?You have substance use disorder. This is when using alcohol again and again causes problems with your health, your relationships, or with what you need to do at work, home, or school. ?Be sure to eat before you drink alcohol. Avoid drinking when you have an empty stomach. ?Make sure you have enough fluid in your body (stay hydrated). To do this: ?Drink enough fluid to keep your pee (urine) pale yellow. ?Avoid caffeine, which may be in coffee, tea, and some sodas. Caffeine can make you thirsty. ?Try not to drink more than one drink an hour. ?If you are having more than one drink, have a drink without alcohol (such as water) between your drinks. General instructions Take kxhw-nqj-lxmktyx and prescription medicines only as told by your doctor. Do not drive after drinking any amount of alcohol. Plan for a designated hole digger truck driver or another way to go home. Have someone you trust stay with you while you are intoxicated. Youshould not be left alone. Keep all follow-up visits as told by your doctor. This is important. Contact a doctor if: You do not feel better after a few days. You have problems at work, at school, or at home due to drinking. Get help right away if: You have any of the following: ?Moderate or very bad trouble with: ?Movement (coordination). ?Talking. ?Memory. ?Paying attention to things. ?Trouble staying awake. ?Being very confused. ?Jerky movements that you cannot control (seizure). ?Light-headedness. ?Fainting. ?Throwing up (vomiting) blood. The blood may be bright red or look like coffee grounds. ?Blood in your poop (stool). The blood may: ?Be bright red. ?Make your poop black and tarry and make it smell bad. ?Feeling shaky when you try to stop drinking. ?Thoughts about hurting yourself or others. If you ever feel like you may hurt yourself or others, or have thoughts about taking your own life,get help right away. You can go to your nearest emergency department or call: Your local emergency services (911 in the [place] A suicide crisis helpline, such as the National Suicide Prevention Lifeline at or 090 in the [place] This is open 24 hours a day. Summary Alcohol intoxication happens when you cannot think clearly or function well (get impaired) after drinking alcohol. This can happen after just one drink. If your doctor says that alcohol is safe for you, limit how much you drink to no more than 1 drink a day for women who are not and 2 drinks a day for men. Contact a doctor if you have problems at work, at school, or at home due to drinking. Get help right away if you have thoughts about hurting yourself or others. This information is not intended to replace advice given to you by your health care provider. Make sure you discuss any questions you have with your health care provider. Document Revised: 12/22/2021 Document Reviewed: 12/05/2021 [employer] Patient Education 2022 [email or web address]. 2023 15:26:41 Alcohol Abuse and Nutrition Alcohol Abuse and Nutrition Alcohol abuse is any pattern of alcohol consumption that harms your health, relationships, or work.Alcohol abuse can cause poor nutrition (malnutrition or malnourishment) and a lack of nutrients (nutrient deficiencies), which can lead to more health problems. Alcohol abuse brings malnutrition and nutrient deficiencies in two ways: It causes your liver to work abnormally. This affects how your body divides (breaks down) and absorbs nutrients from food. It causes you to eat poorly. Many people who abuse alcohol do not eat enough carbohydrates, protein, fat, vitamins, and minerals. Nutrients that are commonly lacking (deficient) in people who abuse alcohol include: Vitamins. ?Vitamin A. This is needed for your vision, metabolism, and ability to fight off infections (immunity). ?B vitamins. These include folate, thiamine, and niacin. These are needed for new cell growth. ?Vitamin C. This plays an important role in wound healing, immunity, and helping your body to absorb iron. ?Vitamin D. This is necessary for your body to absorb and use calcium. It is produced by your liver, but you can also get it from food and from sun exposure. Minerals. ?Calcium. This is needed for healthy bones as well as heart and blood vessel (cardiovascular) function. ?Iron. This is important for blood, muscle, and nervous system functioning. ?Magnesium. This plays an important role in muscle and nerve function, and it helps to control blood sugar and blood pressure. ?Zinc. This is important for the normal functioning of your nervous system and digestive system (gastrointestinal tract). If you think that you have an alcohol dependency problem, or if it is hard to stop drinking becauseyou feel sick or different when you do not use alcohol, talk with your health care provider or another health professional about where to get help. Nutrition is an essential factor in the therapy for alcohol abuse. Your health care provider or diet and nutrition counselor (dietitian) will work with you to design a plan that can help to restore nutrients to your body and prevent the risk of complications. What is my plan? Your dietitian may develop a specific eating plan that is based on your condition and any other problems that you have. An eating plan will commonly include: A balanced diet. ?Grains: 6 8 oz (170 227 g) a day. Examples of 1 oz of whole grains include 1 cup of whole-wheat cereal, cup of brown rice, or 1 slice of whole-wheat bread. ?Vegetables: 2 3 cups a day. Examples of 1 cup of vegetables include 2 medium carrots, 1 large tomato, or 2 stalks of celery. ?Fruits: 1 2 cups a day. Examples of 1 cup of fruit include 1 large banana, 1 small apple, 8 large strawberries, or 1 large orange. ?Meat and other protein: 5 6 oz (142 170 g) a day. ?A cut of meat or fish that is the size of a deck of cards is about 3 4 oz. ?Foods that provide 1 oz of protein include 1 egg, cup of nuts or seeds, or 1 tablespoon (16 g) of peanut butter. ?Dairy: 2 3 cups a day. Examples of 1 cup of dairy include 8 oz (230 mL) of milk, 8 oz (230 g) of yogurt, or 1 oz (44 g) of natural cheese. Vitamin and mineral supplements. What are tips for following this plan? Eat frequent meals and snacks. Try to eat 5 6 small meals each day. Take vitamin or mineral supplements as recommended by your dietitian. If you are malnourished or if your dietitian recommends it: ?You may follow a high-protein, high-calorie diet. This may include: ?2,000 3,000 calories (kilocalories) a day. ?70 100 g (grams) of protein a day. ?You may be directed to follow a diet that includes a complete nutritional supplement beverage. This can help to restore calories, protein, and vitamins to your body. Depending on your condition, youmay be advised to consume this beverage instead of your meals or in addition to them. Certain medicines may cause changes in your appetite, taste, and weight. Work with your health careprovider and dietitian to make any changes to your medicines and eating plan. If you are unable to take in enough food and calories by mouth, your health care provider may recommend a feeding tube. This tube delivers nutritional supplements directly to your stomach. Recommended foods Eat foods that are high in molecules that prevent oxygen from reacting with your food (antioxidants). These foods include grapes, berries, nuts, green tea, and dark green or orange vegetables. Eatingthese can help to prevent some of the stress that is placed on your liver by consuming alcohol. Eat a variety of fresh fruits and vegetables each day. This will help you to get fiber and vitaminsin your diet. Drink plenty of water and other clear fluids, such as apple juice and broth. Try to drink at least 48 64 oz (1.5 2 L) of water a day. Include foods fortified with vitamins and minerals in your diet. Commonly fortified foods include milk, orange juice, cereal, and bread. Eat a variety of foods that are high in omega-3 and omega-6 fatty acids. These include fish, nuts and seeds, and soybeans. These foods may help your liver to recover and may also stabilize your mood. If you are a vegetarian: ?Eat a variety of protein-rich foods. ?Pair whole grains with plant-based proteins at meals and snack time. For example, eat rice with beans, put peanut butter on whole-grain toast, or eat oatmeal with sunflower seeds. The items listed above may not be a complete list of foods and beverages you can eat. Contact a dietitian for more information. Foods to avoid Avoid foods and drinks that are high in fat and sugar. Sugary drinks, salty snacks, and candy contain empty calories. This means that they lack important nutrients such as protein, fiber, and vitamins. Avoid alcohol. This is the best way to avoid malnutrition due to alcohol abuse. If you must drink, drink measured amounts. Measured drinking means limiting your intake to no more than 1 drink a day for non women and 2 drinks a day for men. One drink equals 12 oz (355 mL) of beer, 5 oz (148 mL) of wine, or 1 oz (44 mL) of hard liquor. Limit your intake of caffeine. Replace drinks like coffee and black tea with decaffeinated coffee and decaffeinated herbal tea. The items listed above may not be a complete list of foods and beverages you should avoid. Contact a dietitian for more information. Summary Alcohol abuse can cause poor nutrition (malnutrition or malnourishment) and a lack of nutrients (nutrient deficiencies), which can lead to more health problems. Common nutrient deficiencies include vitamin deficiencies (A, B, C, and D) and mineral deficiencies(calcium, iron, magnesium, and zinc). Nutrition is an essential factor in the therapy for alcohol abuse. Your health care provider and dietitian can help you to develop a specific eating plan that includes a balanced diet plus vitamin and mineral supplements. This information is not intended to replace advice given to you by your health care provider. Make sure you discuss any questions you have with your health care provider. Document Revised: 12/22/2021 Document Reviewed: 12/19/2020 [employer] Patient Education 2022 [employer]. 2023 15:26:41 Alcohol Abuse and Dependence Information, Adult Alcohol Abuse and Dependence Information, Adult Alcohol is a widely available drug. People drink alcohol in different amounts. People who drink alcohol very often and in large amounts often have problems during and after drinking. They may developwhat is called an alcohol use disorder. There are two main types of alcohol use disorders: Alcohol abuse. This is when you use alcohol too much or too often. You may use alcohol to make yourself feel happy or to reduce stress. You may have a hard time setting a limit on the amount you drink. Alcohol dependence. This is when you use alcohol consistently for a period of time, and your body changes as a result. This can make it hard to stop drinking because you may start to feel sick or feel different when you do not use alcohol. These symptoms are known as withdrawal. How can alcohol abuse and dependence affect me? Alcohol abuse and dependence can have a negative effect on your life. Drinking too much can lead toaddiction. You may feel like you need alcohol to function normally. You may drink alcohol before work in the morning, during the day, or as soon as you get home from work in the evening. These actions can result in: Poor work performance. Job loss. Financial problems. Car crashes or criminal charges from driving after drinking alcohol. Problems in your relationships with friends and family. Losing the trust and respect of coworkers, friends, and family. Drinking heavily over a long period of time can permanently damage your body and brain, and can cause lifelong health issues, such as: Damage to your liver or pancreas. Heart problems, high blood pressure, or stroke. Certain cancers. Decreased ability to fight infections. Brain or nerve damage. Depression. Early (premature) . If you are careless or you crave alcohol, it is easy to drink more than your body can handle (overdose). Alcohol overdose is a serious situation that requires hospitalization. It may lead to permanent injuries or . What can increase my risk? Having a family history of alcohol abuse. Having depression or other mental health conditions. Beginning to drink at an early age. Binge drinking often. Experiencing trauma, stress, and an unstable home life during childhood. Spending time with people who drink often. What actions can I take to prevent or manage alcohol abuse and dependence? Do not drink alcohol if: ?Your health care provider tells you not to drink. ?You are , may be , or are planning to become . If you drink alcohol: ?Limit how much you use to: ?0 1 drink a day for women. ?0 2 drinks a day for men. ?Be aware of how much alcohol is in your drink. In the [place] one drink equals one 12 oz bottle of beer (355 mL), one 5 oz glass of wine (148 mL), or one 1 oz glass of hard liquor (44 mL). Stop drinking if you have been drinking too much. This can be very hard to do if you are used to abusing alcohol. If you begin to have withdrawal symptoms, talk with your health care provider or a person that you trust. These symptoms may include anxiety, shaky hands, headache, nausea, sweating, ornot being able to sleep. Choose to drink nonalcoholic beverages in social gatherings and places where there may be alcohol. Activity Spend more time on activities that you enjoy that do not involve alcohol, like hobbies or exercise. Find healthy ways to cope with stress, such as exercise, meditation, or spending time with people you care about. General information Talk to your family, coworkers, and friends about supporting you in your efforts to stop drinking. If they drink, ask them not to drink around you. Spend more time with people who do not drink alcohol. If you think that you have an alcohol dependency problem: ?Tell friends or family about your concerns. ?Talk with your health care provider or another health professional about where to get help. ?Work with a therapist and a chemical dependency counselor. ?Consider joining a support group for people who struggle with alcohol abuse and dependence. Where to find support Your health care provider. SMART Recovery: www.smartrecovery.org Therapy and support groups Local treatment centers or chemical dependency counselors. Local AA groups in your community: www.aa.org Where to find more information Centers for Disease Control and Prevention: www.cdc.gov National [place] on Alcohol Abuse and Alcoholism: www.niaaa.nih.gov Alcoholics Anonymous (AA): www.aa.org Contact a health care provider if: You drank more or for longer than you intended on more than one occasion. You tried to stop drinking or to cut back on how much you drink, but you were not able to. You often drink to the point of vomiting or passing out. You want to drink so badly that you cannot think about anything else. You have problems in your life due to drinking, but you continue to drink. You keep drinking even though you feel anxious, depressed, or have experienced memory loss. You have stopped doing the things you used to enjoy in order to drink. You have to drink more than you used to in order to get the effect you want. You experience anxiety, sweating, nausea, shakiness, and trouble sleeping when you try to stop drinking. Get help right away if: You have thoughts about hurting yourself or others. You have serious withdrawal symptoms, including: ?Confusion. ?Racing heart. ?High blood pressure. ?Fever. If you ever feel like you may hurt yourself or others, or have thoughts about taking your own life,get help right away. You can go to your nearest emergency department or call: Your local emergency services (911 in the [place] A suicide crisis helpline, such as the National Suicide Prevention Lifeline at or 988 in the [place] This is open 24 hours a day. Summary Alcohol abuse and dependence can have a negative effect on your life. Drinking too much or too often can lead to addiction. If you drink alcohol, limit how much you use. If you are having trouble keeping your drinking under control, find ways to change your behavior. Hobbies, calming activities, exercise, or support groups can help. If you feel you need help with changing your drinking habits, talk with your health care provider, a good friend, or a therapist, or go to an AA group. This information is not intended to replace advice given to you by your health care provider. Make sure you discuss any questions you have with your health care provider. Document Revised: 12/22/2021 Document Reviewed: 04/07/2019 [employer] Patient Education 2022 [employer]. Follow Up Care 2023 00:52:31 With:Anthony SINGLETARY, SALOMÓN Singh Address: [place] [id number] When:2 to 4 weeks With:[facility] Address:Unknown When: Unknown With:[facility]: [phone] Address:Unknown When: Unknown With:[facility] [phone] Address:Unknown When: Unknown With:Chemical Dependency: Address:Unknown When: Unknown With:Diamante Cleveland Address: [address] [place] [address], [address] [phone]- Business (1) When:2 to 4 days [facility]11-25[facility] TroyComment on above:Result Comment: Electronically Signed By: Gunnar HOGAN DO\Date and Time Signed: 01/05/23 08:01 [id number] Evaluation + Plan note Extracted from: Title:ED Note Author:Darren Guzman DO Date :01/02/23 Acute alcohol intoxication ( F10.929: Alcohol use, unspecified with intoxication, unspecified) Chest pain (R07.9: Chest pain, unspecified) Palpitations (R00.2: Palpitations) Orders: Automated Diff Basic Metabolic Panel CBC w/ Auto Diff ECG 12 Lead Adult ED Cardiac Monitoring eGFR Ethanol Level Magnesium Level Oxygen Saturation Oxygen Therapy PT & PTT Saline Lock Insert Troponin 0 Hr. XR Chest Single View [facility]11-22-2023 Hospital Discharge instructions Patient Education 01/02/2023 04:48:50 Alcohol Intoxication Alcohol Intoxication Alcohol intoxication occurs when a person no longer thinks clearly or functions well (becomes impaired) after drinking alcohol. Intoxication can occur with just one drink. The legal definition of alcohol intoxication depends on the amount of alcohol in the blood (blood alcohol concentration, LUCAS). LUCAS of 80 100 mg/dL or higher is commonly considered legally intoxicated. The level of impairment depends on: The amount of alcohol the person had. The person's age, gender, and weight. How often the person drinks. Whether the person has other medical conditions, such as diabetes, seizures, or a heart condition. Alcohol intoxication can range from mild to severe. The condition can be dangerous, especially if the person: Also took certain drugs or prescription medicines. Drinks a large amount of alcohol in a short period of time (binge drinks). ?For women, binge drinking is having four or more drinks at one time. ?For men, binge drinking is having five or more drinks at one time. If you or anyone around you appears intoxicated, speak up and act. What are the causes? This condition is caused by drinking alcohol. What increases the risk? The following factors may make you more likely to develop this condition: Peer pressure in young adults. Difficulty managing stress. History of drug or alcohol abuse. Combining alcohol with drugs. Family history of drug or alcohol abuse. Low body weight. Binge drinking. What are the signs or symptoms? Symptoms of alcohol intoxication can vary from person to person. Symptoms can be mild, moderate, orsevere. Symptoms of mild alcohol intoxication may include: Feeling relaxed or sleepy. Having mild difficulty with coordination, speech, memory, or attention. Symptoms of moderate alcohol intoxication may include: Strong anger or extreme sadness. Moderate difficulty with coordination, speech, memory, or attention. Symptoms of severe alcohol intoxication may include: Severe difficulty with coordination, speech, memory, or attention. Passing out. Vomiting. Confusion. Slow breathing. Coma. Intoxication can change quickly from mild to severe. It can cause coma or , especially in people who are not exposed to alcohol often. How is this diagnosed? Your health care provider will ask you how much alcohol you drank and what kind you had. Intoxication may also be diagnosed based on: Your symptoms and medical history. A physical exam. A blood test that measures LUCAS. A smell of alcohol on your breath. How is this treated? Treatment for alcohol intoxication may include: Being monitored in an emergency department, hospital, or treatment center until your LUCAS comes downand it is safe for you to go home. IV fluids to prevent or treat loss of fluid in the body (dehydration). Medicine to treat nausea or vomiting or to get rid of alcohol in the body. Counseling (brief intervention) about the dangers of using alcohol. Treatment for substance use disorder. Oxygen therapy or a breathing machine (ventilator). Long-term (chronic) exposure to alcohol can have long-term effects on your brain, heart, and gastrointestinal system. These effects can be serious and may also require treatment. Follow these instructions at home: Eating and drinking Do not drink alcohol if: ?Your health care provider tells you not to drink. ?You are , may be , or are planning to become . ?You are under the legal drinking age (21 years old in the [place] ?You are taking medicines that should not be taken with alcohol. ?You have a medical condition, and alcohol makes it worse. ?You need to drive or perform activities that require you to be alert. ?You have substance use disorder. Ask your health care provider if alcohol is safe for you. If your health care provider allows you to drink alcohol, limit how much you have. You may drink: ?0 1 drink a day for women. ? 0 2 drinks a day for men. ?Be aware of how much alcohol is in your drink. In the [place] one drink equals one 12 oz bottle of beer (355 mL), one 5 oz glass of wine (148 mL), or one 1 oz shot of hard liquor (44 mL). Avoid drinking alcohol on an empty stomach. Stay hydrated. Drink enough fluid to keep your urine pale yellow. Avoid caffeine because it can dehydrate you. Avoid drinking more than one drink per hour. When having multiple drinks, drink water or a non-alcoholic beverage between alcoholic drinks. General instructions Take koim-phj-bbrdokv and prescription medicines only as told by your health care provider. Do not drive after drinking any amount of alcohol. Plan for a designated hole digger truck driver or another way to go home. Have someone responsible stay with you while you are intoxicated. You should not be left alone. Keep all follow-up visits as told by your health care provider. This is important. Contact a health care provider if: You do not feel better after a few days. You have problems at work, at school, or at home due to drinking. Get help right away if: You have any of the following: ?Moderate to severe trouble with coordination, speech, memory, or attention. ?Trouble staying awake. ?Severe confusion. ?A seizure. ?Light-headedness. ?Fainting. ?Vomiting bright red blood or material that looks like coffee grounds. ?Bloody stool (feces). The blood may make your stool bright red, black, or tarry. It may also smellbad. ?Shakiness when trying to stop drinking. ?Thoughts about hurting yourself or others. If you ever feel like you may hurt yourself or others, or have thoughts about taking your own life,get help right away. You can go to your nearest emergency department or call: Your local emergency services (911 in the [place] A suicide crisis helpline, such as the National Suicide Prevention Lifeline at or 478 in the [place] This is open 24 hours a day. Summary Alcohol intoxication occurs when a person no longer thinks clearly or functions well after drinkingalcohol. If your health care provider says that alcohol is safe for you, limit alcohol intake to no more than 1 drink a day for women (no drinks if you are ) and 2 drinks a day for men. One drink equals 12 oz of beer, 5 oz of wine, or 1 oz of hard liquor. Contact your health care provider if drinking has caused you problems at work, school, or home. Get help right away if you have thoughts about hurting yourself or others. This information is not intended to replace advice given to you by your health care provider. Make sure you discuss any questions you have with your health care provider. Document Revised: 12/22/2021 Document Reviewed: 12/05/2021 [employer] Patient Education 2022 [employer] 01/02/2023 04:48:50 Palpitations Palpitations Palpitations are feelings that your heartbeat is irregular or is faster than normal. It may feel like your heart is fluttering or skipping a beat. Palpitations may be caused by many things, includingsmoking, caffeine, alcohol, stress, and certain medicines or drugs. Most causes of palpitations arenot serious. However, some palpitations can be a sign of a serious problem. Further tests and a thorough medicalhistory will be done to find the cause of your palpitations. Your provider may order tests such as an ECG, labs, an echocardiogram, or an ambulatory continuous ECG monitor. Follow these instructions at home: Pay attention to any changes in your symptoms. Let your health care provider know about them. Take these actions to help manage your symptoms: Eating and drinking Follow instructions from your health care provider about eating or drinking restrictions. You may need to avoid foods and drinks that may cause palpitations. These may include: Caffeinated coffee, tea, soft drinks, and energy drinks. Chocolate. Alcohol. Diet pills. Lifestyle Take steps to reduce your stress and anxiety. Things that can help you relax include: ?Yoga. ?Mind-body activities, such as deep breathing, meditation, or using words and images to create positive thoughts (guided imagery). ?Physical activity, such as swimming, jogging, or walking. Tell your health care provider if your palpitations increase with activity. If you have chest pain or shortness of breath with activity, do not continue the activity until you are seen by your health care provider. ?Biofeedback. This is a method that helps you learn to use your mind to control things in your body, such as your heartbeat. Get plenty of rest and sleep. Keep a regular bed time. Do not use drugs, including cocaine or ecstasy. Do not use marijuana. Do not use any products that contain nicotine or tobacco. These products include cigarettes, chewing tobacco, and vaping devices, such as e-cigarettes. If you need help quitting, ask your health careprovider. General instructions Take uefq-ztf-eenhpfm and prescription medicines only as told by your health care provider. Keep all follow-up visits. This is important. These may include visits for further testing if palpitations do not go away or get worse. Contact a health care provider if: You continue to have a fast or irregular heartbeat for a long period of time. You notice that your palpitations occur more often. Get help right away if: You have chest pain or shortness of breath. You have a severe headache. You feel dizzy or you faint. These symptoms may represent a serious problem that is an emergency. Do not wait to see if the symptoms will go away. Get medical help right away. Call your local emergency services (911 in the [place] Do not drive yourself to the hospital. Summary Palpitations are feelings that your heartbeat is irregular or is faster than normal. It may feel like your heart is fluttering or skipping a beat. Palpitations may be caused by many things, including smoking, caffeine, alcohol, stress, certain medicines, and drugs. Further tests and a thorough medical history may be done to find the cause of your palpitations. Get help right away if you faint or have chest pain, shortness of breath, severe headache, or dizziness. This information is not intended to replace advice given to you by your health care provider. Make sure you discuss any questions you have with your health care provider. Document Revised: 06/21/2021 Document Reviewed: 06/21/2021 [employer] Patient Education 2022 [employer]. Follow Up Care 01/02/2023 00:36:12 With:Diamante Cleveland Address: [address] [place] [address], [address] Business (1) When:Within 3 Day(s) [facility]11-04-2023 History of Present illness Narrative* Eric Najera LCSW - 12/15/2022 7:38 PM EDT EPAT - Social Work Psychiatric Assessment Arrival Details Mode of Arrival: Ambulatory Admission Source: Other (Comment) Admission Type: Involuntary ([facility], [facility] [place]) EPAT Assessment Start Date: 12/15/22 EPAT Assessment Start Time: 1423 Name of Health Services Information Specialist: FRANKLIN Smith History of Present Illness Admission Reason: Psych assessment HPI: 32yr old female with history of bipolar disorder, anxiety disorder, dually diagnosed with alcohol use dependence and opioid use disorder and h/o other substances, presenting to the ED after change of mental status apparent at [facility] (aka [place]) which is a detoxification unit within [facility]. The transfer to ED was last night and initial attempt at [facility] psych assess was midnight. She was not able to participate meaningfully for it, so this psych assess was re-ordered this afternoon with enough improvement for this interview. The referral to ED from [place] was d/t disorientation and hallucinations that were more severe than expected for typical course of detox - thus prompted the need for evaluation of her bipolar disorder symptoms as primary, the detox secondarily exacerbating. Has been off psychotropics for her bipolar disorder. No recent memory for anything over at least the past month. Manic and rocking in place. Poor judgment and lacks insight. The following items were all that she could recall today about treatment history: She said she was with [facility] x[facility]. When asked specifically about detox hx, she said [facility] 2010. She was at [facility] just a few days ago (12/10). Oriented only to self and generally to location that she's in the hospital. SW Readmission Information Readmission within 30 Days: Yes Previous ED Visit Date and Reason : 12/10 at [facility], then to [place] until transfer for this assessment Previous Discharge Date and Location: 12/10 as stated Factors Contributing to Readmission Inpatient/ED (Team Perspective): Substance Abuse, Med Compliance/Difficulty Obtaining, Failed to Keep Follow-Up Appointments Readmission Factors Team Comments: Bipolar symptoms are unmanaged, apparenlty exacerbated by alcohol withdrawal Psychiatric Symptoms Anxiety Symptoms: Generalized, Panic attack Depression Symptoms: Other (Comment) (unable to assess) Evita Symptoms: Psychomotor agitation, Poor judgment (disorganized in general) Psychosis Symptoms Hallucination Type: Visual (last night) Delusion Type: Paranoid (Thinks she is in her own bedroom) Additional Symptoms - Adult Generalized Anxiety Disorder: Difficult to control worry, Difficulity concentrating, Excessive anxiety/worry, Restlessness Obsessive Compulsive Disorder: No problems reported or observed. Panic Attack: Shortness of breath, Sweaty/clammy (historically) Post Traumatic Stress Disorder: (unable to assess) Delirium: Acute inattention, Change in speech, Disorientation, Waxing and waning Review of Symptoms Comments: Symptomaitc with no insight. Q: Are you anxious? No. Q: Are you depressed? No. Q: You look like you're about to cry. Do you feel sad? No, I'm just frustrated. I can't answer your questions. Q: You're safe and we will make sure you'll be okay. What would you like to go from here? Do you want help with your ability to remember things? Can we keep you for a short time for you to recover? No, I just want my stuff and my phone and I want to leave. I'm feeling a ton of anxiety. Q: What about? I don't know but my heart is racing. / Her pulse was 78. Past Psychiatric History/Meds/Treatments Past Psychiatric History: Chart history indicates outpatient at [facility]. Pt unable to recall any Past Psychiatric Meds/Treatments: None known per patient. The following is the only info found in chart: Has been treated at [facility]; has not taken any of her psychotropic prescriptions for several months due to weight gain; Chart only shows Vraylar 1.5. Past Violence/Victimization History: unable to assess Current Mental Health Contacts High Climber Name/Phone Number: unknown High Climber Last Appointment Date: unknown Provider Name/Phone Number: [facility] Provider Last Appointment Date: November Support System: Immediate family Living Arrangement: Apartment Income Information Employment Status for: Patient Employment Status: Other (Comment) (None per pt) [employer] Service/Education History Current or Previous Service: None Education Level: (unable to assess) Social/Cultural History Social History: Q: Who is in your family? Me, my mom and 3 sisters. (Did not mention son) Q: Do youhave children? Yes, a 10 yr old. Q: Boy or girl? Boy. Where does he live? With his father in [place]. Q: When do you see him? Every other weekend or whenever he wants. Q: You live with your mom and 3sisters? No, it's just me and my mom. Important Activities: (unable to assess) Legal Legal Comments: unable to assess Drug Screening Have you used any substances (canabis, cocaine, heroin, hallucinogens, inhalants, etc.) in the past12 months?: Yes Have you used any prescription drugs other than prescribed in the past 12 months?: Yes Is a toxicology screen needed?: Yes Stage of Change Stage of Change: (unable to assess) History of Treatment: Inpatient, Dual, Sober living Psychosocial Psychosocial (WDL): (see narrative) Behaviors/Mood: Anxious, Pacing, Flight of ideas, Restless, Impulsive, Delusions Orientation Orientation Level: Disoriented to person (Q: Where are you? Did not know. I asked if she is in a coffee shop. Respons: Hospital shop. Q: Why are you in the hospital? Response: Alcohol. No recollection of detox history, including current protocol of the last couple days.) General Appearance Motor Activity: Restlessness (Rocks in place, sitting in bed) Speech Pattern: Perseverative, Repetitive General Attitude: Uncooperative, Uninterested, Unable to assess Appearance/Hygiene: Unremarkable Thought Process Coherency: Circumstantial, Disorganized Content: Delusions, Preoccupation, Unable to assess Delusions: (Paranoid delusions last night.) Perception: Hallucinations Hallucination: (Last night, yes she saw people around her and in the dutta that were internally stimulated images) Judgment/Insight: Impaired Confusion: Moderate Cognition: Poor attention/concentration, Poor judgement Sleep Pattern Sleep Pattern: Unable to assess Risk Factors Self Harm/Suicidal Ideation Plan: No statements or gestures that would indicate any thoughts or intention to harm others or self. Previous Self Harm/Suicidal Plans: unable to assess Risk Factors: Substance abuse Violence Risk Assessment Assessment of Violence: On admission Thoughts of Harm to Others: (No statements or gestures that would indicate any thoughts or intention to harm others or self.) Ability to Assess Risk Screen Risk Screen - Ability to Assess: (Denies any thoughts of intentional harm to self or others consistently during all clinical interviews; however, this patient has no insight into her condition, she lacks any judgment that would allow her to make safe decisions were she to be discharged.) Ask Suicide-Screening Questions 1. In the past few weeks, have you wished you were ?: No 2. In the past few weeks, have you felt that you or your family would be better off if you were ?: No 3. In the past week, have you been having thoughts about killing yourself?: No 4. Have you ever tried to kill yourself?: No 5. Are you having thoughts of killing yourself right now?: No Calculated Risk Score: No intervention is necessary [place] Suicide Severity Rating Scale (Screener/Recent Self-Report) 1. Wish to be (Past 1 Month): No 2. Non-Specific Active Suicidal Thoughts (Past 1 Month): No 6. Suicidal Behavior (Lifetime): No Calculated C-SSRS Risk Score (Lifetime/Recent): No Risk Indicated Step 1: Risk Factors Current & Past Psychiatric Dx: (Bipolar affective disorder, currently manic, moderate - secondary to Alcohol withdrawal syndrome with complication.) Step 5: Documentation Risk Level: (denies current SI but given altered mental status not reliably able to assess) Psychiatric Impression and Plan of Care Assessment and Plan: DIAGNOSIS Primary: Bipolar affective disorder, currently manic, moderate - secondary to Alcohol withdrawal syndrome with complication. ASSESSMENT: This was a 20 nminute virtual tele-med interview via video chat. Positive attribute: She remained calm in presentation Did not raise her voice, always speaking in normal tone. She admitted to feeling upset about inability to answerquestions. Also presents with confusion, disorientation, severe restlessness. Last night as well astoday now, the cognitive behavioral presentation seems more to be primarily the result of being offher bipolar medication, possibly/probably complicated or exacerbated on the tail of her detox, her CIWA having lowered as non-essential factor this presentation. Last night's interview was attempted but still too symptomatic for meaningful info from pt. She was hallucinating, delusional and very disorientd, wandering in the room. She rocks back and forth, sitting up in bed, very infrequently looked at me by glance at the camera. CIWA was close to 30 last night, but now single digits. Today, shewas able to participate in this interview, no longer responding to any internal stimulation, not wandering aroun the room. She is only oriented to self and has an idea that she is in the hospital butdelayed in all responses. PLAN: Consulted with the ED Provider for this patient, concurring that the patient does meet criteria [place] emergency certificate [place] 5122.01 Outcome/Disposition Patient's Perception of Outcome Achieved: Pt has no insight into her symptoms and need for placement Assessment, Recommendations and Risk Level Reviewed with: Dr. Tobias Contact Name: -- Contact Number(s): -- Contact Relationship: -- EPAT Assessment Completed Date: 12/15/22 EPAT Assessment Completed Time: 1445 Patient Disposition: (referred for medical stabilization) * Emy Art LCSW - 12/15/2022 3:34 AM EDT EPAT - Social Work Psychiatric Assessment Arrival Details Mode of Arrival: Ambulatory Admission Source: Other (Comment) ([facility]) Admission Type: Involuntary EPAT Assessment Start Date: 12/15/22 EPAT Assessment Start Time: 19 Name of Health Services Information Specialist: Emy Art [facility] History of Present Illness Admission Reason: Evaluation HPI: 32yr old female with history of mood disorder, anxiety, alcohol use disorder, and Opioid Use Disorder presenting to the ED after change of mental status apparent at [facility] which is a detoxification unit within [facility]. Provider Note and chart history is reviewed. The patient had reported seeing someone in the hallway and had become paranoid that people were watching her and talking about her. She reported that she was feeling closed in and wanted to sign out AMA. Shewas felt to lack capacity at that time and was sent to the ED for evaluation. In assessment she is not really able to attend and is asking the interviewer to help her look around for her son. She then asks about help finding her phone. She is trembling, wandering in and out of her room. The patientis not oriented and initially stated she was in her bedroom at home. The patient has been treated with Ativan since her arrival. Her CIWA scores have ranged from 8 to 21. Currently she is a terrible historian reporting she has been at [facility] for [facility] for the last 9 months . She was actuallyadmitted there on 12/12. She is not reporting thoughts of harming herself or others. Readmission Information Readmission within 30 Days: Yes Previous ED Visit Date and Reason : 12/10 at [facility] Previous Discharge Date and Location: 12/10 Factors Contributing to Readmission Inpatient/ED (Team Perspective): Substance Abuse Readmission Factors Team Comments: alcohol withdrawal Psychiatric Symptoms Anxiety Symptoms: Generalized, Panic attack Depression Symptoms: Other (Comment) (unable to assess) Evita Symptoms: Psychomotor agitation, Poor judgment (disorganized in general) Psychosis Symptoms Hallucination Type: Visual Delusion Type: Paranoid (Thinks she is in her own bedroom) Additional Symptoms - Adult Generalized Anxiety Disorder: Difficult to control worry, Difficulity concentrating, Excessive anxiety/worry, Restlessness Obsessive Compulsive Disorder: No problems reported or observed. Panic Attack: Shortness of breath, Sweaty/clammy Post Traumatic Stress Disorder: (unable to assess) Delirium: Acute inattention, Change in speech, Disorientation, Waxing and waning Past Psychiatric History/Meds/Treatments Past Psychiatric History: unable to assess: Chart history indicates outpatient at [facility] Past Psychiatric Meds/Treatments: per chart stopped medications except for Vraylar 1.5 several months ago due to weight gain Past Violence/Victimization History: unable to assess Current Mental Health Contacts High Climber Name/Phone Number: unknown High Climber Last Appointment Date: unknown Provider Name/Phone Number: [facility] Provider Last Appointment Date: November Support System: Immediate family Living Arrangement: House Income Information Employment Status for: Patient Employment Status: Other (Comment) (unable to assess) [employer] Service/Education History Current or Previous Service: None Education Level: (unable to assess) Social/Cultural History Social History: living in [place] with mother and 10yr old son Important Activities: (unable to assess) Legal Legal Comments: unable to assess Drug Screening Have you used any substances (canabis, cocaine, heroin, hallucinogens, inhalants, etc.) in the past12 months?: Yes Have you used any prescription drugs other than prescribed in the past 12 months?: Yes Is a toxicology screen needed?: Yes Stage of Change Stage of Change: (unable to assess) History of Treatment: Inpatient, Dual, Sober living Psychosocial Psychosocial (WDL): (see narrative) Behaviors/Mood: Other (Comment) (wandering, not attending in assessment, what do you mean this isn't my bedroom .) Orientation Orientation Level: Disoriented to place, Disoriented to time General Appearance Speech Pattern: Perseverative, Repetitive General Attitude: Uncooperative, Uninterested, Unable to assess Appearance/Hygiene: Unremarkable Thought Process Coherency: Circumstantial, Disorganized Content: Delusions, Preoccupation, Unable to assess Perception: Hallucinations Hallucination: Visual Judgment/Insight: Impaired Confusion: Moderate Cognition: Poor attention/concentration, Poor judgement, Unable to follow commands Sleep Pattern Sleep Pattern: Unable to assess Risk Factors Self Harm/Suicidal Ideation Plan: denies Previous Self Harm/Suicidal Plans: unable to assess Risk Factors: Substance abuse Violence Risk Assessment Assessment of Violence: None noted Thoughts of Harm to Others: No Ability to Assess Risk Screen Risk Screen - Ability to Assess: Unable to assess Ask Suicide-Screening Questions 1. In the past few weeks, have you wished you were ?: No 2. In the past few weeks, have you felt that you or your family would be better off if you were ?: No 3. In the past week, have you been having thoughts about killing yourself?: No 4. Have you ever tried to kill yourself?: (unable to assess) 5. Are you having thoughts of killing yourself right now?: No Calculated Risk Score: Potential Risk [place] Suicide Severity Rating Scale (Screener/Recent Self-Report) 1. Wish to be (Past 1 Month): No 2. Non-Specific Active Suicidal Thoughts (Past 1 Month): No 6. Suicidal Behavior (Lifetime): (unable to asess) Calculated C-SSRS Risk Score (Lifetime/Recent): No Risk Indicated Step 5: Documentation Risk Level: (denies current SI but given altered mental status not reliably able to assess) Psychiatric Impression and Plan of Care Assessment and Plan: 32yr old female with history of reported Bipolar Disorder, Anxiety and Opioid and Alcohol use disorders with dependence. She had been sent to [facility] from [facility] for detox on 12/12.[facility] nursing staff report that she was started on a Librium Taper and Methadone. She is getting 1.5 of Vraylar which is her only current psychiatric medication from her outpatient notes. She spent her first 2 days very sick and in bed. Patient was up moving around today but was acting oddly. She reported seeing someone standing in the hallway that was not actually there and felt that others were talking about her and laughing at her. She stated she felt too closed in and wanted to sign out AMA. The patient was ultimately sent to the ED for evaluation. In assessment she is unable to follow along in interview and is wandering around asking the Tele- Health information security manager to help her find her son and then says the same of her phone. She wanders in and out of her room and is briefly upset what do you mean I'm not at home . She is oriented to self and somewhat situation. The patient repor ts she is attending IOP but this in not accurate. She needs redirection to have a seat and is observed then tremulous and nodding off. Up again and wanting to leave the room. She makes unrelated statements about all her Gabapentin and her 7 Ativan pills being missing . The patient at this point isunable to provide a meaningful history. There is strong suspicion for Delirium. CIWA scores range fr om 8 to 21 more recently. The patient will need medical stabilization before Behavioral Health Assessment can be completed. Delirium Alcohol Withdrawal Alcohol Use Disorder Opioid Use Disorder Bipolar Disorder by history. Outcome/Disposition Patient's Perception of Outcome Achieved: unable to assess Assessment, Recommendations and Risk Level Reviewed with: Dr. Mcdowell Contact Name: -- Contact Number(s): -- Contact Relationship: -- Patient Disposition: (referred for medical stabilization) * Jessica Mcdowell DO - 12/14/2022 8:53 PM EDT Emergency Medicine Transition of Care Note. I received Lyle Flynn in signout from Dr. Steele. Please see the previous ED provider note forall HPI, PE and MDM up to the time of signout at 0100. This is in addition to the primary record. In brief Llye Flynn is an 32 y.o. female presenting for Chief Complaint Patient presents with Psychiatric Evaluation Pt is from [place] and is going through alcohol withdrawal, pt states she has been seeing people who are not there. Pt is also having some anxiety. Pt states she's had seizures before when she goes through DT's At the time of signout we were awaiting: EPAT evaluation. ED Course as of 12/16/22 0248 SatDec 14, 2022 2244 Comprehensive Metabolic Panel(!) Reviewed and reassuring, Mild ALT/AST elevation which is appropriate in setting of etoh use disorder history [AH] 2249 Acute Toxicology Panel, Blood Acute tox negative [AH] Sat Dec 15, 2022 0659 There was concern that the patient may have been using amphetamines in the bathroom. Repeat urine drug screen is only positive for benzodiazepines and barbiturates which had been prescribed to her in the ED. [SP] ED Course User Index [AH] Amy Steele MD [SP] Jessica Mcdowell DO Diagnoses as of 12/16/22 0248 Alcohol withdrawal syndrome with complication (CMS/HCC) Bipolar affective disorder, currently manic, moderate (CMS/HCC) Medical Decision Making EPAT evaluated the patient and feels the patient is delirius from alcohol withdrawal. She does havehigh CIWA, however is not tachycardic, hypertensive. Only mild tremor. She was treated with phenobarbital. She remains on CIWA protocol with additional benzodiazepine to help with her symptoms as well. She was given IV thiamine. CIWA scores did improve. She continues to be anxious with pressured speech and flight of ideas. I do have ongoing concerns that this is related to her bipolar disorder. While I do think she does havesome symptoms of alcohol withdrawal I also believe that she would benefit from psychiatric care. Final diagnoses: [F10.939] Alcohol withdrawal syndrome with complication (CMS/HCC) [F31.12] Bipolar affective disorder, currently manic, moderate (CMS/HCC) Procedure Procedures Jessica Mcdowell DO * John Tobias MD - 12/14/2022 8:53 PM EDT Emergency Medicine Transition of Care Note. I received Lyle Flynn in signout from Dr. Mcdowell. Please see the previous ED provider note for all HPI, PE and MDM up to the time of signout at 0700. This is in addition to the primary record. In brief Lyle Flynn is an 32 y.o. female presenting for [facility] Chief Complaint Patient presents with Psychiatric Evaluation Pt is from [place] and is going through alcohol withdrawal, pt states she has been seeing people who are not there. Pt is also having some anxiety. Pt states she's had seizures before when she goes through DT's At the time of signout we were awaiting: reevaluation ED Course as of 12/15/22 1516 Fri Dec 14, 2022 2244 Comprehensive Metabolic Panel(!) Reviewed and reassuring, Mild ALT/AST elevation which is appropriate in setting of etoh use disorder history [AH] 2249 Acute Toxicology Panel, Blood Acute tox negative [AH] Sat Dec 15, 2022 0659 There was concern that the patient may have been using amphetamines in the bathroom. Repeat urine drug screen is only positive for benzodiazepines and barbiturates which had been prescribed to her in the ED. [SP] ED Course User Index [AH] Amy Steele MD [SP] Jessica Mcdowell, DO Diagnoses as of 12/15/22 1516 Alcohol withdrawal syndrome with complication (CMS/HCC) Bipolar affective disorder, currently manic, moderate (CMS/HCC) MDM: Patient was brought down from pending call for concern for hallucinations while up there undergoing withdraw and treatment for substance use disorder including alcohol. The prior provider had treated her and placed her on CIWA and consulted the emergency psychiatric assessment team. Emergency psychiatric assessment team was concerned on her evaluation that she is likely more of an alcohol withdrawal type picture. On my evaluation she is alert and oriented only to person, she appears anxious and agitated but her vital signs are all stable. She appears to have flight of ideas, is unable tocarry on a linear and coherent conversation, and she does appear internally stimulated. She is not d iaphoretic, she is not vomiting, and her CIWA score is only 8. My suspicion that this is fulminant alcohol withdrawal solely contributing to her symptoms is low. Patient was given phenobarb continuedon CIWA protocol, and also given a dose of haloperidol. EPAT reengaged the patient and agree that this is likely bipolar or schizoaffective type with some psychotic features. [place] slip was placed to prevent the patient from leaving the department. At the time of signout the patient is pending EPAT placement. Final diagnoses: [F10.939] Alcohol withdrawal syndrome with complication (CMS/HCC) [F31.12] Bipolar affective disorder, currently manic, moderate (CMS/HCC) Procedure Procedures John Tobias MD * Rosa Elena Howe MD - 12/14/2022 8:53 PM EDT Emergency Medicine Transition of Care Note. I received Lyle Flynn in signout from Dr. Tobias. Please see the previous ED provider note for all HPI, PE and MDM up to the time of signout at 1700. This is in addition to the primary record. In brief Lyle Flynn is an 32 y.o. female presenting for Chief Complaint Patient presents with Psychiatric Evaluation Pt is from [place] and is going through alcohol withdrawal, pt states she has been seeing people who are not there. Pt is also having some anxiety. Pt states she's had seizures before when she goes through [facility] At the time of signout we were awaiting: ED Course as of 12/15/221909 Fri Dec 14, 2022 2244 Comprehensive Metabolic Panel(!) Reviewed and reassuring, Mild ALT/AST elevation which is appropriate in setting of etoh use disorder history [AH] 9 Acute Toxicology Panel, Blood Acute tox negative [AH] Sat Dec 15, 2022 0659 There was concern that the patient may have been using amphetamines in the bathroom. Repeat urine drug screen is only positive for benzodiazepines and barbiturates which had been prescribed to her in the ED. [SP] ED Course User Index [AH] Amy Steele MD [SP] Jessica Mcdowell DO Diagnoses as of 12/15/221909 Alcohol withdrawal syndrome with complication (CMS/HCC) Bipolar affective disorder, currently manic, moderate (CMS/HCC) MDM Final diagnoses: [F10.939] Alcohol withdrawal syndrome with complication (CMS/HCC) [F31.12] Bipolar affective disorder, currently manic, moderate (CMS/HCC) Patient is currently pending psychiatric placement at this time. He is hemodynamically stable and medically cleared for psychiatric placement. Patient does take methadone daily. She has not had her dose in a few days. A scheduled methadone dose of 50 mg is ordered for the morning. This is confirmedas her dose by the detox floor. At this time patient is pending transfer for psychiatric treatment.She will be signed out to the oncoming provider pending disposition. Procedure Procedures Rosa Elena Howe MD * Jessica Mcdowell DO - 12/14/2022 8:53 PM EDT Emergency Medicine Transition of Care Note. I received Lyle Flynn in signout from Dr. Howe. Please see the previous ED provider note for all HPI, PE and MDM up to the time of signout at 0100. This is in addition to the primary record. In brief Lyle Flynn is an 32 y.o. female presenting for Chief Complaint Patient presents with Psychiatric Evaluation Pt is from [place] and is going through alcohol withdrawal, pt states she has been seeing people who are not there. Pt is also having some anxiety. Pt states she's had seizures before when she goes through [facility] At the time of signout we were awaiting: [facility] to place the patient. ED Course as of 12/16/22250 Fri Dec 14, 2022 2244 Comprehensive Metabolic Panel(!) Reviewed and reassuring, Mild ALT/AST elevation which is appropriate in setting of etoh use disorder history [AH] 2249 Acute Toxicology Panel, Blood Acute tox negative [AH] Sat Dec 15, 2022 0659 There was concern that the patient may have been using amphetamines in the bathroom. Repeat urine drug screen is only positive for benzodiazepines and barbiturates which had been prescribed to her in the ED. [SP] ED Course User Index [AH] Amy Steele MD [SP] Jessica Mcdowell DO Diagnoses as of 12/16/22250 Alcohol withdrawal syndrome with complication (CMS/HCC) Bipolar affective disorder, currently manic, moderate (CMS/HCC) Medical Decision Making Patient does have mixed alcohol withdrawal and psychiatric concerns. Her CIWA has remained low throughout the day. She is hemodynamically stable with normal vital signs. The patient was reevaluated by [facility] earlier in the day. They do agree with concerns of ongoing psychiatric illness contributing to her symptoms and will be working on placement. The patient is medically cleared for psychiatric evaluation and admission. Final diagnoses: [F10.939] Alcohol withdrawal syndrome with complication (CMS/HCC) [F31.12] Bipolar affective disorder, currently manic, moderate (CMS/HCC) Procedure Procedures Jessica Mcdowell DO * Rosa Elena Howe MD - 12/14/2022 8:53 PM EDT Emergency Medicine Transition of Care Note. I received Lyle Flynn in signout from Dr. Handy. Please see the previous ED provider note for all HPI, PE and MDM up to the time of signout at 1700. This is in addition to the primary record. In brief Lyle Flynn is an 32 y.o. female presenting for Chief Complaint Patient presents with Psychiatric Evaluation Pt is from [place] and is going through alcohol withdrawal, pt states she has been seeing people who are not there. Pt is also having some anxiety. Pt states she's had seizures before when she goes through [facility] At the time of signout we were awaiting: ED Course as of 12/16/221841 Fri Dec 14, 2022 2244 Comprehensive Metabolic Panel(!) Reviewed and reassuring, Mild ALT/AST elevation which is appropriate in setting of etoh use disorder history [AH] 2249 Acute Toxicology Panel, Blood Acute tox negative [AH] Sat Dec 15, 2022 0659 There was concern that the patient may have been using amphetamines in the bathroom. Repeat urine drug screen is only positive for benzodiazepines and barbiturates which had been prescribed to her in the ED. [SP] ED Course User Index [AH] Amy Steele MD [SP] Jessica Mcdowell DO Diagnoses as of 12/16/221841 Alcohol withdrawal syndrome with complication (CMS/HCC) Bipolar affective disorder, currently manic, moderate (CMS/HCC) MDM Final diagnoses: [F10.939] Alcohol withdrawal syndrome with complication (CMS/HCC) [F31.12] Bipolar affective disorder, currently manic, moderate (CMS/HCC) Patient was pending transfer. She has now been accepted to [facility] and will be transferred there for further psychiatric work-up. Procedure Procedures Rosa Elena Howe MD documented in this [facility] Work Phone: 1([phone]) 476-866111-03-2023 Miscellaneous Notes* Significant Event - John Tobias MD - 12/14/2022 8:53 PM EDT Application for Emergency Admission Ready for Transfer? Is the patient medically cleared for transfer to inpatient psychiatry: Yes Has the patient been accepted to an inpatient psychiatric hospital: No Application for Emergency Admission IN ACCORDANCE WITH SECTION 5122.10 [employer] The Chief Clinical Officer of: 12/15/2022 .7:42 AM Reason for Hospitalization The undersigned has reason to believe that: Lyle Flynn Is a mentally ill person subject to hospitalization by court order under division B Section 5122.01 of the Revised Code, i.e., this person: 1.No Represents a substantial risk of physical harm to self as manifested by evidence of threats of, or attempts at, suicide or serious self-inflicted bodily harm 2.No Represents a substantial risk of physical harm to others as manifested by evidence of recent homicidal or other violent behavior, evidence of recent threats that place another in reasonable fearof violent behavior and serious physical harm, or other evidence of present dangerousness 3.Yes Represents a substantial and immediate risk of serious physical impairment or injury to self as manifested by evidence that the person is unable to provide for and is not providing for the person's basic physical needs because of the person's mental illness and that appropriate provision for those needs cannot be made immediately available in the community 4.Yes Would benefit from treatment in a hospital for his mental illness and is in need of such treatment as manifested by evidence of behavior that creates a grave and imminent risk to substantial rights of others or himself. 5.Yes Would benefit from treatment as manifested by evidence of behavior that indicates all of the following: (a) The person is unlikely to survive safely in the community without supervision, based on a clinical determination. (b) The person has a history of lack of compliance with treatment for mental illness and one of thefollowing applies: (i) At least twice within the thirty-six months prior to the filing of an affidavit seeking court-ordered treatment of the person under section 5122.111 of the Revised Code, the lack of compliance has been a significant factor in necessitating hospitalization in a hospital or receipt of services [facility] or other mental health unit of a correctional facility, provided that the estpnr-czu-ypljn period shall be extended by the length of any hospitalization or incarceration of the person thatoccurred within the vnozhg-wyl-dddxw period. (ii) Within the forty-eight months prior to the filing of an affidavit seeking court-ordered treatment of the person under section 5122.111 of the Revised Code, the lack of compliance resulted in oneor more acts of serious violent behavior toward self or others or threats of, or attempts at, serious physical harm to self or others, provided that the tddnm-fpctk-pabog period shall be extended by the length of any hospitalization or incarceration of the person that occurred within the xvdbw-pvscm-egswd period. (c) The person, as a result of mental illness, is unlikely to voluntarily participate in necessary treatment. (d) In view of the person's treatment history and current behavior, the person is in need of treatment in order to prevent a relapse or deterioration that would be likely to result in substantial risk of serious harm to the person or others. (e) Represents a substantial risk of physical harm to self or others if allowed to remain at liberty pending examination. Therefore, it is requested that said person be admitted to the above named facility. STATEMENT OF BELIEF Must be filled out by one of the following: a psychiatrist, licensed physician, licensed clinical psychologist, health or agricultural extension officer, satellite installer or supervisor framing mill. (Statement shall include the circumstances under which the individual was taken into custody and the reason for the person's belief that hospitalization is necessary. The statement shall also includea reference to efforts made to secure the individual's property at his residence if he was taken into custody there. Every reasonable and appropriate effort should be made to take this person into custody in the least conspicuous manner possible.) Patient is presenting to the emergency department for psychiatric evaluation from [place]. She wasbeing treated for alcohol withdrawal. On my evaluation she appears tired, agitated, she is pacing, she is unable to carry on a linear and coherent conversation. She appears internally stimulated. 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 John Tobias MD 12/15/2022 Place of Employment: [facility] STATEMENT OF OBSERVATION BY PSYCHIATRIST, LICENSED PHYSICIAN, OR LICENSED CLINICAL PSYCHOLOGIST, IFAPPLICABLE Place of Observation (e.g., [facility], general hospital, office, emergency facility) (If applicable, please complete) John Tobias MD 12/15/2022 * Significant Event - Rosa Elena Howe MD - 12/14/2022 8:53 PM EDT Application for Emergency Admission Ready for Transfer? Is the patient medically cleared for transfer to inpatient psychiatry: Yes Has the patient been accepted to an inpatient psychiatric hospital: Yes Application for Emergency Admission IN ACCORDANCE WITH SECTION 5122.10 [employer] The Chief Clinical Officer of: Rosario Horowitz 12/16/2022 .6:39 PM Reason for Hospitalization The undersigned has reason to believe that: Lyle Flynn Is a mentally ill person subject to hospitalization by court order under division B Section 5122.01 of the Revised Code, i.e., this person: 1.No Represents a substantial risk of physical harm to self as manifested by evidence of threats of, or attempts at, suicide or serious self-inflicted bodily harm 2.No Represents a substantial risk of physical harm to others as manifested by evidence of recent homicidal or other violent behavior, evidence of recent threats that place another in reasonable fearof violent behavior and serious physical harm, or other evidence of present dangerousness 3.Yes Represents a substantial and immediate risk of serious physical impairment or injury to self as manifested by evidence that the person is unable to provide for and is not providing for the person's basic physical needs because of the person's mental illness and that appropriate provision for those needs cannot be made immediately available in the community 4.Yes Would benefit from treatment in a hospital for his mental illness and is in need of such treatment as manifested by evidence of behavior that creates a grave and imminent risk to substantial rights of others or himself. 5.No Would benefit from treatment as manifested by evidence of behavior that indicates all of the following: (a) The person is unlikely to survive safely in the community without supervision, based on a clinical determination. (b) The person has a history of lack of compliance with treatment for mental illness and one of thefollowing applies: (i) At least twice within the thirty-six months prior to the filing of an affidavit seeking court-ordered treatment of the person under section 5122.111 of the Revised Code, the lack of compliance has been a significant factor in necessitating hospitalization in a hospital or receipt of services [facility] or other mental health unit of a correctional facility, provided that the uzbhmb-pig-towvj period shall be extended by the length of any hospitalization or incarceration of the person thatoccurred within the ajumvg-lsj-dwoxz period. (ii) Within the forty-eight months prior to the filing of an affidavit seeking court-ordered treatment of the person under section 5122.111 of the Revised Code, the lack of compliance resulted in oneor more acts of serious violent behavior toward self or others or threats of, or attempts at, serious physical harm to self or others, provided that the ghpxk-jpzhm-tefum period shall be extended by the length of any hospitalization or incarceration of the person that occurred within the dletc-mbycu-jgwis period. (c) The person, as a result of mental illness, is unlikely to voluntarily participate in necessary treatment. (d) In view of the person's treatment history and current behavior, the person is in need of treatment in order to prevent a relapse or deterioration that would be likely to result in substantial risk of serious harm to the person or others. (e) Represents a substantial risk of physical harm to self or others if allowed to remain at liberty pending examination. Therefore, it is requested that said person be admitted to the above named facility. STATEMENT OF BELIEF Must be filled out by one of the following: a psychiatrist, licensed physician, licensed clinical psychologist, health or agricultural extension officer, satellite installer or supervisor framing mill. (Statement shall include the circumstances under which the individual was taken into custody and the reason for the person's belief that hospitalization is necessary. The statement shall also includea reference to efforts made to secure the individual's property at his residence if he was taken into custody there. Every reasonable and appropriate effort should be made to take this person into custody in the least conspicuous manner possible.) Patient is presenting to the emergency department for psychiatric evaluation from [place]. She wasbeing treated for alcohol withdrawal. On my evaluation she appears tired, agitated, she is pacing, she is unable to carry on a linear and coherent conversation. She appears internally stimulated. 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 Rosa Elena Howe MD 12/16/2022 Place of Employment: [facility] STATEMENT OF OBSERVATION BY PSYCHIATRIST, LICENSED PHYSICIAN, OR LICENSED CLINICAL PSYCHOLOGIST, IFAPPLICABLE Place of Observation (e.g., [facility], general hospital, office, emergency facility) (If applicable, please complete) Rosa Elena Howe MD 12/16/2022 documented in this [facility] Work Phone: 1(478) 235-295711-03-2023 Note* Significant Event - John Tobias MD - 12/14/2022 8:53 PM EDT Application for Emergency Admission Ready for Transfer? Is the patient medically cleared for transfer to inpatient psychiatry: Yes Has the patient been accepted to an inpatient psychiatric hospital: No Application for Emergency Admission IN ACCORDANCE WITH SECTION 5122.10 [employer] The Chief Clinical Officer of: 12/15/2022 .7:42 AM Reason for Hospitalization The undersigned has reason to believe that: Lyle Flynn Is a mentally ill person subject to hospitalization by court order under division B Section 5122.01 of the Revised Code, i.e., this person: 1.No Represents a substantial risk of physical harm to self as manifested by evidence of threats of, or attempts at, suicide or serious self-inflicted bodily harm 2.No Represents a substantial risk of physical harm to others as manifested by evidence of recent homicidal or other violent behavior, evidence of recent threats that place another in reasonable fearof violent behavior and serious physical harm, or other evidence of present dangerousness 3.Yes Represents a substantial and immediate risk of serious physical impairment or injury to self as manifested by evidence that the person is unable to provide for and is not providing for the person's basic physical needs because of the person's mental illness and that appropriate provision for those needs cannot be made immediately available in the community 4.Yes Would benefit from treatment in a hospital for his mental illness and is in need of such treatment as manifested by evidence of behavior that creates a grave and imminent risk to substantial rights of others or himself. 5.Yes Would benefit from treatment as manifested by evidence of behavior that indicates all of the following: (a) The person is unlikely to survive safely in the community without supervision, based on a clinical determination. (b) The person has a history of lack of compliance with treatment for mental illness and one of thefollowing applies: (i) At least twice within the thirty-six months prior to the filing of an affidavit seeking court-ordered treatment of the person under section 5122.111 of the Revised Code, the lack of compliance has been a significant factor in necessitating hospitalization in a hospital or receipt of services [facility] or other mental health unit of a correctional facility, provided that the zzhkxl-vgw-vlcsc period shall be extended by the length of any hospitalization or incarceration of the person thatoccurred within the ptccfk-fpc-mkpvo period. (ii) Within the forty-eight months prior to the filing of an affidavit seeking court-ordered treatment of the person under section 5122.111 of the Revised Code, the lack of compliance resulted in oneor more acts of serious violent behavior toward self or others or threats of, or attempts at, serious physical harm to self or others, provided that the lfadi-gtwvk-ddyda period shall be extended by the length of any hospitalization or incarceration of the person that occurred within the typvx-gkwoh-ebwpa period. (c) The person, as a result of mental illness, is unlikely to voluntarily participate in necessary treatment. (d) In view of the person's treatment history and current behavior, the person is in need of treatment in order to prevent a relapse or deterioration that would be likely to result in substantial risk of serious harm to the person or others. (e) Represents a substantial risk of physical harm to self or others if allowed to remain at liberty pending examination. Therefore, it is requested that said person be admitted to the above named facility. STATEMENT OF BELIEF Must be filled out by one of the following: a psychiatrist, licensed physician, licensed clinical psychologist, health or agricultural extension officer, or supervisor framing mill. (Statement shall include the circumstances under which the individual was taken into custody and the reason for the person's belief that hospitalization is necessary. The statement shall also includea reference to efforts made to secure the individual's property at his residence if he was taken into custody there. Every reasonable and appropriate effort should be made to take this person into custody in the least conspicuous manner possible.) Patient is presenting to the emergency department for psychiatric evaluation from [place]. She wasbeing treated for alcohol withdrawal. On my evaluation she appears tired, agitated, she is pacing, she is unable to carry on a linear and coherent conversation. She appears internally stimulated. 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 John Tobias MD 12/15/2022 [facility] of Employment: [facility] STATEMENT OF OBSERVATION BY PSYCHIATRIST, LICENSED PHYSICIAN, OR LICENSED CLINICAL PSYCHOLOGIST, IFAPPLICABLE Place of Observation (e.g., [facility], [facility], office, emergency facility) (If applicable, please complete) John Tobias MD 12/15/2022 [facility] Work Phone: 1(519) 452-490911-03-2023 Note* Significant Event - Rosa Elena Howe MD - 12/14/2022 8:53 PM EDT Application for Emergency Admission Ready for Transfer? Is the patient medically cleared for transfer to inpatient psychiatry: Yes Has the patient been accepted to an inpatient psychiatric hospital: Yes Application for Emergency Admission IN ACCORDANCE WITH SECTION 5122.10 [employer] The Chief Clinical Officer of: Rosario Horowitz 12/16/2022 .6:39 PM Reason for Hospitalization The undersigned has reason to believe that: Lyle Flynn Is a mentally ill person subject to hospitalization by court order under division B Section 5122.01 of the Revised Code, i.e., this person: 1.No Represents a substantial risk of physical harm to self as manifested by evidence of threats of, or attempts at, suicide or serious self-inflicted bodily harm 2.No Represents a substantial risk of physical harm to others as manifested by evidence of recent homicidal or other violent behavior, evidence of recent threats that place another in reasonable fearof violent behavior and serious physical harm, or other evidence of present dangerousness 3.Yes Represents a substantial and immediate risk of serious physical impairment or injury to self as manifested by evidence that the person is unable to provide for and is not providing for the person's basic physical needs because of the person's mental illness and that appropriate provision for those needs cannot be made immediately available in the community 4.Yes Would benefit from treatment in a hospital for his mental illness and is in need of such treatment as manifested by evidence of behavior that creates a grave and imminent risk to substantial rights of others or himself. 5.No Would benefit from treatment as manifested by evidence of behavior that indicates all of the following: (a) The person is unlikely to survive safely in the community without supervision, based on a clinical determination. (b) The person has a history of lack of compliance with treatment for mental illness and one of thefollowing applies: (i) At least twice within the thirty-six months prior to the filing of an affidavit seeking court-ordered treatment of the person under section 5122.111 of the Revised Code, the lack of compliance has been a significant factor in necessitating hospitalization in a hospital or receipt of services [facility] or other mental health unit of a correctional facility, provided that the bwnzmu-rxm-xxciv period shall be extended by the length of any hospitalization or incarceration of the person thatoccurred within the yjbiiy-wyn-dlver period. (ii) Within the forty-eight months prior to the filing of an affidavit seeking court-ordered treatment of the person under section 5122.111 of the Revised Code, the lack of compliance resulted in oneor more acts of serious violent behavior toward self or others or threats of, or attempts at, serious physical harm to self or others, provided that the ufjzz-kreme-fljqj period shall be extended by the length of any hospitalization or incarceration of the person that occurred within the uwgcu-srmae-gumbc period. (c) The person, as a result of mental illness, is unlikely to voluntarily participate in necessary treatment. (d) In view of the person's treatment history and current behavior, the person is in need of treatment in order to prevent a relapse or deterioration that would be likely to result in substantial risk of serious harm to the person or others. (e) Represents a substantial risk of physical harm to self or others if allowed to remain at liberty pending examination. Therefore, it is requested that said person be admitted to the above named facility. STATEMENT OF BELIEF Must be filled out by one of the following: a psychiatrist, licensed physician, licensed clinical psychologist, health or agricultural extension officer, satellite installer or supervisor framing mill. (Statement shall include the circumstances under which the individual was taken into custody and the reason for the person's belief that hospitalization is necessary. The statement shall also includea reference to efforts made to secure the individual's property at his residence if he was taken into custody there. Every reasonable and appropriate effort should be made to take this person into custody in the least conspicuous manner possible.) Patient is presenting to the emergency department for psychiatric evaluation from [place]. She wasbeing treated for alcohol withdrawal. On my evaluation she appears tired, agitated, she is pacing, she is unable to carry on a linear and coherent conversation. She appears internally stimulated. 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 Rosa Elena Howe MD 12/16/2022 Place of Employment: [facility] STATEMENT OF OBSERVATION BY PSYCHIATRIST, LICENSED PHYSICIAN, OR LICENSED CLINICAL PSYCHOLOGIST, IFAPPLICABLE Place of Observation (e.g., [facility], [facility], office, emergency facility) (If applicable, please complete) Rosa Elena Howe MD 12/16/2022 [facility] Work Phone: [phone] Hospital Discharge instructions Patient Education 12/10/2022 21:57:34 Alcohol Intoxication Alcohol Intoxication Alcohol intoxication occurs when a person no longer thinks clearly or functions well (becomes impaired) after drinking alcohol. Intoxication can occur with just one drink. The legal definition of alcohol intoxication depends on the amount of alcohol in the blood (blood alcohol concentration, LUCAS). LUCAS of 80 100 mg/dL or higher is commonly considered legally intoxicated. The level of impairment depends on: The amount of alcohol the person had. The person's age, gender, and weight. How often the person drinks. Whether the person has other medical conditions, such as diabetes, seizures, or a heart condition. Alcohol intoxication can range from mild to severe. The condition can be dangerous, especially if the person: Also took certain drugs or prescription medicines. Drinks a large amount of alcohol in a short period of time (binge drinks). ?For women, binge drinking is having four or more drinks at one time. ?For men, binge drinking is having five or more drinks at one time. If you or anyone around you appears intoxicated, speak up and act. What are the causes? This condition is caused by drinking alcohol. What increases the risk? The following factors may make you more likely to develop this condition: Peer pressure in young adults. Difficulty managing stress. History of drug or alcohol abuse. Combining alcohol with drugs. Family history of drug or alcohol abuse. Low body weight. Binge drinking. What are the signs or symptoms? Symptoms of alcohol intoxication can vary from person to person. Symptoms can be mild, moderate, orsevere. Symptoms of mild alcohol intoxication may include: Feeling relaxed or sleepy. Having mild difficulty with coordination, speech, memory, or attention. Symptoms of moderate alcohol intoxication may include: Strong anger or extreme sadness. Moderate difficulty with coordination, speech, memory, or attention. Symptoms of severe alcohol intoxication may include: Severe difficulty with coordination, speech, memory, or attention. Passing out. Vomiting. Confusion. Slow breathing. Coma. Intoxication can change quickly from mild to severe. It can cause coma or , especially in people who are not exposed to alcohol often. How is this diagnosed? Your health care provider will ask you how much alcohol you drank and what kind you had. Intoxication may also be diagnosed based on: Your symptoms and medical history. A physical exam. A blood test that measures LUCAS. A smell of alcohol on your breath. How is this treated? Treatment for alcohol intoxication may include: Being monitored in an emergency department, hospital, or treatment center until your LUCAS comes downand it is safe for you to go home. IV fluids to prevent or treat loss of fluid in the body (dehydration). Medicine to treat nausea or vomiting or to get rid of alcohol in the body. Counseling (brief intervention) about the dangers of using alcohol. Treatment for substance use disorder. Oxygen therapy or a breathing machine (ventilator). Long-term (chronic) exposure to alcohol can have long-term effects on your brain, heart, and gastrointestinal system. These effects can be serious and may also require treatment. Follow these instructions at home: Eating and drinking Do not drink alcohol if: ?Your health care provider tells you not to drink. ?You are , may be , or are planning to become . ?You are under the legal drinking age (21 years old in the [place] ?You are taking medicines that should not be taken with alcohol. ?You have a medical condition, and alcohol makes it worse. ?You need to drive or perform activities that require you to be alert. ?You have substance use disorder. Ask your health care provider if alcohol is safe for you. If your health care provider allows you to drink alcohol, limit how much you have. You may drink: ?0 1 drink a day for women. ? 0 2 drinks a day for men. ?Be aware of how much alcohol is in your drink. In the [place] one drink equals one 12 oz bottle of beer (355 mL), one 5 oz glass of wine (148 mL), or one 1 oz shot of hard liquor (44 mL). Avoid drinking alcohol on an empty stomach. Stay hydrated. Drink enough fluid to keep your urine pale yellow. Avoid caffeine because it can dehydrate you. Avoid drinking more than one drink per hour. When having multiple drinks, drink water or a non-alcoholic beverage between alcoholic drinks. General instructions Take rywp-oxt-iqqduvs and prescription medicines only as told by your health care provider. Do not drive after drinking any amount of alcohol. Plan for a designated hole digger truck driver or another way to go home. Have someone responsible stay with you while you are intoxicated. You should not be left alone. Keep all follow-up visits as told by your health care provider. This is important. Contact a health care provider if: You do not feel better after a few days. You have problems at work, at school, or at home due to drinking. Get help right away if: You have any of the following: ?Moderate to severe trouble with coordination, speech, memory, or attention. ?Trouble staying awake. ?Severe confusion. ?A seizure. ?Light-headedness. ?Fainting. ?Vomiting bright red blood or material that looks like coffee grounds. ?Bloody stool (feces). The blood may make your stool bright red, black, or tarry. It may also smellbad. ?Shakiness when trying to stop drinking. ?Thoughts about hurting yourself or others. If you ever feel like you may hurt yourself or others, or have thoughts about taking your own life,get help right away. You can go to your nearest emergency department or call: Your local emergency services (911 in the [place] A suicide crisis helpline, such as the National Suicide Prevention Lifeline at or 446 in the [place] This is open 24 hours a day. Summary Alcohol intoxication occurs when a person no longer thinks clearly or functions well after drinkingalcohol. If your health care provider says that alcohol is safe for you, limit alcohol intake to no more than 1 drink a day for women (no drinks if you are ) and 2 drinks a day for men. One drink equals 12 oz of beer, 5 oz of wine, or 1 oz of hard liquor. Contact your health care provider if drinking has caused you problems at work, school, or home. Get help right away if you have thoughts about hurting yourself or others. This information is not intended to replace advice given to you by your health care provider. Make sure you discuss any questions you have with your health care provider. Document Revised: 12/22/2021 Document Reviewed: 12/05/2021 [employer] Patient Education 2022 [employer]. Follow Up Care 12/10/2022 17:22:08 With:[facility] Address:Unknown When:12/13/2022 21:39:40 With:Diamante Cleveland Address: [address] [place] [address], [address] Business ([address]) When:Within 3 Day(s) [facility]10-30-2023 Evaluation + Plan noteExtracted from: Title:ED Note Author:Eric Forbes DO Date: Alcohol withdrawal (F10.939: Alcohol use, unspecified with withdrawal, unspecified) Ordered: lorazepam, 1 mg = 1 tab(s), Oral, q8hr, Take one by mouth every eight hours as needed, X 4 day(s), # 12 tab(s), Refills(s) 0, Pharmacy: [facility], 157, cm, 12/10/22 8:08:00 EDT, Height/Length Dosing, 72.2, kg, 12/10/22 8:08:00 EDT, Weight Dosing Methadone withdrawal (F11.93: Opioid use, unspecified with withdrawal) Palpitations (R00.2: Palpitations) Vomiting (R11.10: Vomiting, unspecified) Orders: lorazepam, 1 mg = 0.5 mL, Injection, IV Push, Once, Stop date 12/10/22 8:08:00 EDT, STAT, Start date 12/10/22 8:08:00 EDT, 12/10/22 8:08:00 EDT ondansetron, 4 mg = 1 tab(s), Oral, q6hr, PRN Nausea, Take one tab by mouth every six hours as needed for nausea, # 10 tab(s), Refills(s) 0, Pharmacy: [facility], 157, cm, 12/10/22 8:08:00 EDT, Height/Length Dosing, 72.2, kg, 12/10/22 8:08:00 EDT,... ondansetron, 4 mg = 2 mL, Injection, IV Push, Once, Stop date 12/10/22 8:07:00 EDT, STAT, Start date 12/10/22 8:07:00 EDT, 12/10/22 8:07:00 EDT Sodium Chloride 0.9% intravenous solution, 1,000 mL, Soln-IV, IV, Once, Stop date 12/10/22 8:07:00 EDT, STAT, Start date 12/10/22 8:07:00 EDT, Infuse over 61, minute(s) Automated Diff Basic Metabolic Panel Beta hCG Qual CBC w/ Auto Diff Drug Screen Urine ED Cardiac Monitoring eGFR Ethanol Level Hepatic Function Panel Lipase Level Magnesium Level Oxygen Saturation Oxygen Therapy PT & PTT Saline Lock Insert Troponin 0 Hr. Troponin 3 Hr. Troponin 6 Hr. Troponin 9 Hr. UA With Cult Reflex XR Chest Single View [facility]10-30-2023 Evaluation + Plan noteExtracted from: Title:ED Note Author:Sima HARO, Fabricio Garrett te:12/10/22 1. Alcohol intoxication (F10 .929: Alcohol use, unspecified with intoxication, unspecified) Orders: lorazepam, 2 mg = 2 tab(s), Tab, Oral, Once, Stop date 12/10/22 17:27:00 EDT, STAT, Start date 12/10/22 17:27:00 EDT, 12/10/22 17:27:00 EDT Ethanol Level [facility]10-30-2023 Hospital Discharge instructions Patient Education 12/10/2022 11:47:31 Alcohol Withdrawal Syndrome Alcohol Withdrawal Syndrome Alcohol withdrawal syndrome is a group of symptoms that can develop when a person who drinks heavily and regularly stops drinking or drinks less. Alcohol withdrawal syndrome can be mild or severe, and it may even be life-threatening. Alcohol withdrawal syndrome usually affects people who have alcohol use disorder, which may also becalled alcoholism. Alcohol use disorder is when a person is unable to control his or her alcohol use, and drinking too much or too often causes problems at home, at work, or in relationships. What are the causes? Drinking heavily and drinking on a regular basis cause changes in brain chemistry. Over time, the body becomes dependent on alcohol. When alcohol use stops, the chemistry system in the brain becomes unbalanced and causes the symptoms of alcohol withdrawal. What increases the risk? Alcohol withdrawal syndrome is more likely to occur in people who drink more than the recommended limit of alcohol (2 drinks a day for men or 1 drink a day for non- women). It is also more likely to affect heavy drinkers who have been using alcohol for long periods of time. The more a person drinks and the longer he or she drinks, the greater the risk of alcohol withdrawal syndrome. Severe withdrawal is more likely to develop in someone who: Had severe alcohol withdrawal in the past. Had a seizure during a previous episode of alcohol withdrawal. Is elderly. Uses other drugs. Has a long-term (chronic) medical problem, such as heart, lung, or liver disease. Has depression. Does not get enough nutrients from his or her diet (malnutrition). What are the signs or symptoms? Symptoms of this condition can be mild to moderate, or they can be severe. Symptoms may develop a few hours (or up to a day) after a person changes his or her drinking patterns. During the 48 hours after he or she has stopped drinking, the following symptoms may go away or get better: Uncontrollable shaking (tremor). Sweating. Headache. Anxiety. Inability to relax (agitation). Trouble sleeping (insomnia). Irregular heartbeats (palpitations). Alcohol cravings. Seizure. The following symptoms may get worse 24 48 hours after a person has decreased or stopped alcohol use, and they may gradually improve over a period of days or weeks: Nausea and vomiting. Fatigue. Sensitivity to light and sounds. Confusion and inability to think clearly. Loss of appetite. Mood swings, irritability, depression, and anxiety. Insomnia and nightmares. The following symptoms are severe and life-threatening. When these symptoms occur together, they are called delirium tremens (DTs): High blood pressure. Increased heart rate. Trouble breathing. Seizures. These may go away along with other symptoms, or they may persist. Seeing, hearing, feeling, smelling, or tasting things that are not there (hallucinations). If you experience hallucinations, they usually begin 12 24 hours after a change in drinking patterns. Delirium tremens requires immediate hospitalization. How is this diagnosed? This condition may be diagnosed based on: Your symptoms and medical history. Your history of alcohol use. Your health care provider may ask questions about your drinking behavior. It is important to be honest when you answer these questions. A psychological assessment. A physical exam. Blood tests or urine tests to measure blood alcohol level and to rule out other causes of symptoms. MRI or CT scan. This may be done if you seem to have abnormal thinking or behaviors (altered mentalstatus). Diagnosis can be difficult. People going through withdrawal often avoid seeking medical care and are not thinking clearly. Friends and family members play an important role in recognizing symptoms and encouraging loved ones to get treatment. How is this treated? Most people with symptoms of withdrawal can be treated outside of a hospital setting (outpatient treatment), with close monitoring such as daily check-ins with a health care provider and counseling. You may need treatment at a hospital or treatment center (inpatient treatment) if: You have a history of delirium tremens or seizures. You have severe symptoms. You are addicted to other drugs. You cannot swallow medicine. You have a serious medical condition such as heart failure. You experienced withdrawal in the past but then you continued drinking alcohol. You are not likely to commit to an outpatient treatment schedule. Treatment may involve: Monitoring your blood pressure, pulse, and breathing. IV fluids to keep you hydrated. Medicines to reduce withdrawal symptoms and discomfort (benzodiazepines). Medicine to reduce anxiety. Medicine to prevent or control seizures. Multivitamins and B vitamins. Having a health care provider check on you daily. It is important to get treatment for alcohol withdrawal early. Getting treatment early can: Speed up your recovery from withdrawal symptoms. Make you more successful with long-term stoppage of alcohol use (sobriety). If you need help to stop drinking, your health care provider may recommend a long-term treatment plan that includes: Medicines to help treat alcohol use disorder. Substance abuse counseling. Support groups. Follow these instructions at home: Take bjfo-dey-rcaepgv and prescription medicines (including vitamin supplements) only as told by your health care provider. Do not drink alcohol. Do not drive until your health care provider approves. Have someone you trust stay with you or be available if you need help with your symptoms or with not drinking. Drink enough fluid to keep your urine pale yellow. Consider joining an alcohol support group or treatment program. These can provide emotional support, advice, and guidance. Keep all follow-up visits as told by your health care provider. This is important. Contact a health care provider if: Your symptoms get worse instead of better. You cannot eat or drink without vomiting. You are struggling with not drinking alcohol. You cannot stop drinking alcohol. Get help right away if: You have an irregular heartbeat. You have chest pain. You have trouble breathing. You have a seizure for the first time. You hallucinate. You become very confused. Summary Alcohol withdrawal is a group of symptoms that can develop when a person who drinks heavily and regularly stops drinking or drinks less. Symptoms of this condition can be mild to moderate, or they can be severe. Treatment may include hospitalization, medicine, and counseling. This information is not intended to replace advice given to you by your health care provider. Make sure you discuss any questions you have with your health care provider. Document Revised: 12/22/2021 Document Reviewed: 12/19/2020 [employer] Patient Education 2022 [employer]. Follow Up Care 12/10/2022 07:57:33 With:[facility] Address:Unknown When:12/13/2022 11:42:52 With:Diamante Cleveland Address: [address] [place] [address], [address] [place] [id number] [facility] () When:Within 3 Day(s) [facility]10-20-2023 Hospital Discharge instructions Patient Education 11/30/2022 14:00:43 BMI for Adults BMI for Adults What is BMI? Body mass index (BMI) is a number that is calculated from a person's weight and height. BMI can help estimate how much of a person's weight is composed of fat. BMI does not measure body fat directly.Rather, it is an alternative to procedures that directly measure body fat, which can be difficult and expensive. BMI can help identify people who may be at higher risk for certain medical problems. What are BMI measurements used for? BMI is used as a screening tool to identify possible weight problems. It helps determine whether a person is obese, overweight, a healthy weight, or underweight. BMI is useful for: Identifying a weight problem that may be related to a medical condition or may increase the risk for medical problems. Promoting changes, such as changes in diet and exercise, to help reach a healthy weight. BMI screening can be repeated to see if these changes are working. How is BMI calculated? BMI involves measuring your weight in relation to your height. Both height and weight are measured,and the BMI is calculated from those numbers. This can be done either in [place] ([place] or metric measurements. Note that charts and online BMI calculators are available to help you find your BMI quickly and easily without having to do these calculations yourself. To calculate your BMI in [place] ([place] measurements: 1.Measure your weight in pounds (lb). 2.Multiply the number of pounds by 703. For example, for a person who weighs 180 lb, multiply that number by 703, which equals 126,540. 3.Measure your height in inches. Then multiply that number by itself to get a measurement called inches squared. For example, for a person who is 70 inches tall, the inches squared measurement is 70 inches x 70inches, which equals 4,900 inches squared. 4.Divide the total from step 2 (number of lb x 703) by the total from step 3 (inches squared): 126,540 4,900 = 25.8. This is your BMI. To calculate your BMI in metric measurements: 1.Measure your weight in kilograms (kg). 2.Measure your height in meters (m). Then multiply that number by itself to get a measurement called meters squared. For example, for a person who is 1.75 m tall, the meters squared measurement is 1.75 m x 1.75 m, which is equal to 3.1 meters squared. 3.Divide the number of kilograms (your weight) by the meters squared number. In this example: 70 3.1 = 22.6. This is your BMI. What do the results mean? BMI charts are used to identify whether you are underweight, normal weight, overweight, or obese. The following guidelines will be used: Underweight: BMI less than 18.5. Normal weight: BMI between 18.5 and 24.9. Overweight: BMI between 25 and 29.9. Obese: BMI of 30 or above. Keep these notes in mind: Weight includes both fat and muscle, so someone with a muscular build, such as an athlete, may havea BMI that is higher than 24.9. In cases like these, BMI is not an accurate measure of body fat. To determine if excess body fat is the cause of a BMI of 25 or higher, further assessments may needto be done by a health care provider. BMI is usually interpreted in the same way for men and women. Where to find more information For more information about BMI, including tools to quickly calculate your BMI, go to these websites: Centers for Disease Control and Prevention: www.cdc.gov [place] [employer]: www.heart.org National Heart, Lung, and Blood [place]: www.nhlbi.nih.gov Summary Body mass index (BMI) is a number that is calculated from a person's weight and height. BMI may help estimate how much of a person's weight is composed of fat. BMI can help identify thosewho may be at higher risk for certain medical problems. BMI can be measured using Ivorian measurements or metric measurements. BMI charts are used to identify whether you are underweight, normal weight, overweight, or obese. This information is not intended to replace advice given to you by your health care provider. Make sure you discuss any questions you have with your health care provider. Document Revised: 10/21/2019 Document Reviewed: 08/28/2019 [employer] Patient Education 2022 [employer]. 11/30/2022 14:00:38 Dysuria Dysuria Dysuria is pain or discomfort during urination. The pain or discomfort may be felt in the part of the body that drains urine from the bladder (urethra) or in the surrounding tissue of the genitals. The pain may also be felt in the groin area, lower abdomen, or lower back. You may have to urinate frequently or have the sudden feeling that you have to urinate (urgency). Dysuria can affect anyone, but it is more common in females. Dysuria can be caused by many different things, including: Urinary tract infection. Kidney stones or bladder stones. Certain STIs (sexually transmitted infections), such as chlamydia. Dehydration. Inflammation of the tissues of the vagina. Use of certain medicines. Use of certain soaps or scented products that cause irritation. Follow these instructions at home: Medicines Take dypr-rhz-wvmqrid and prescription medicines only as told by your health care provider. If you were prescribed an antibiotic medicine, take it as told by your health care provider. Do notstop taking the antibiotic even if you start to feel better. Eating and drinking Drink enough fluid to keep your urine pale yellow. Avoid caffeinated beverages, tea, and alcohol. These beverages can irritate the bladder and make dysuria worse. In males, alcohol may irritate the prostate. General instructions Watch your condition for any changes. Urinate often. Avoid holding urine for long periods of time. If you are female, you should wipe from front to back after urinating or having a bowel movement. Use each piece of toilet paper only once. Empty your bladder after sex. Keep all follow-up visits. This is important. If you had any tests done to find the cause of dysuria, it is up to you to get your test results. Ask your health care provider, or the department that is doing the test, when your results will be ready. Contact a health care provider if: You have a fever. You develop pain in your back or sides. You have nausea or vomiting. You have blood in your urine. You are not urinating as often as you usually do. Get help right away if: Your pain is severe and not relieved with medicines. You cannot eat or drink without vomiting. You are confused. You have a rapid heartbeat while resting. You have shaking or chills. You feel extremely weak. Summary Dysuria is pain or discomfort while urinating. Many different conditions can lead to dysuria. If you have dysuria, you may have to urinate frequently or have the sudden feeling that you have tourinate (urgency). Watch your condition for any changes. Keep all follow-up visits. Make sure that you urinate often and drink enough fluid to keep your urine pale yellow. This information is not intended to replace advice given to you by your health care provider. Make sure you discuss any questions you have with your health care provider. Document Revised: 09/09/2020 Document Reviewed: 09/09/2020 [employer] Patient Education 2022 [employer]. 11/30/2022 14:00:37 Safe Sex Safe Sex Practicing safe sex means taking steps before and during sex to reduce your risk of: Getting an STI (sexually transmitted infection). Giving your partner an STI. Unwanted or unplanned . How to practice safe sex Ways you can practice safe sex Limit your sexual partners to only one partner who is having sex with only you. Avoid using alcohol and drugs before having sex. Alcohol and drugs can affect your judgment. Before having sex with a new partner: ?Talk to your partner about past partners, past STIs, and drug use. ?Get screened for STIs and discuss the results with your partner. Ask your partner to get screened too. Check your body regularly for sores, blisters, rashes, or unusual discharge. If you notice any of these problems, visit your health care provider. Avoid sexual contact if you have symptoms of an infection or you are being treated for an STI. While having sex, use a condom. Make sure to: ?Use a condom every time you have vaginal, oral, or anal sex. Both females and males should wear condoms during oral sex. ?Keep condoms in place from the beginning to the end of sexual activity. ?Use a latex condom, if possible. Latex condoms offer the best protection. ?Use only water-based lubricants with a condom. Using petroleum-based lubricants or oils will weaken the condom and increase the chance that it will break. Ways your health care provider can help you practice safe sex See your health care provider for regular screenings, exams, and tests for STIs. Talk with your health care provider about what kind of control (contraception) is best for you. Get vaccinated against hepatitis B and human papillomavirus (HPV). If you are at risk of being infected with HIV (human immunodeficiency virus), talk with your healthcare provider about taking a prescription medicine to prevent HIV infection. You are at risk for HIV if you: ?Are a man who has sex with other men. ?Are sexually active with more than one partner. ?Take drugs by injection. ?Have a sex partner who has HIV. ?Have unprotected sex. ?Have sex with someone who has sex with both men and women. ?Have had an STI. Follow these instructions at home: Take baut-qme-ymmglzo and prescription medicines only as told by your health care provider. Keep all follow-up visits. This is important. Where to find more information Centers for Disease Control and Prevention: www.cdc.gov Planned Parenthood: www.plannedparenthood.org Office on Women's Health: www.womenshealth.gov Summary Practicing safe sex means taking steps before and during sex to reduce your risk getting an STI, giving your partner an STI, and having an unwanted or unplanned . Before having sex with a new partner, talk to your partner about past partners, past STIs, and druguse. Use a condom every time you have vaginal, oral, or anal sex. Both females and males should wear condoms during oral sex. Check your body regularly for sores, blisters, rashes, or unusual discharge. If you notice any of these problems, visit your health care provider. See your health care provider for regular screenings, exams, and tests for STIs. This information is not intended to replace advice given to you by your health care provider. Make sure you discuss any questions you have with your health care provider. Document Revised: 07/04/2020 Document Reviewed: 07/04/2020 [employer] Patient Education 2022 [employer]. Follow Up Care 11/30/2022 13:08:52 With:Diamante Cleveland CNP Address: [address] [place] [address], [address] [place] [address]- When: Unknown [facility] [phone] Evaluation + Plan note Diagnostic Tests Pending * Chlamydia/Gonococcus, MOISES 11/30/22 * Urine Culture 11/30/22 [facility]10-03-2023 Evaluation + Plan note Diagnostic Tests Pending * Estradiol Level 11/13/22 * Testosterone F&T 11/13/22 * HIV Screen 4th Generation wRfx 11/13/22 * Hepatitis B Surface Antigen 11/13/22 * RPR with Conf Rfx 11/13/22 * FSH Level 11/13/22 * DHEAS 11/13/22 [facility]10-03-2023 Evaluation + Plan note Diagnostic Tests Pending * Thyroid Perox.tpo Ab 11/13/22 [facility]09-24-2023 Hospital Discharge instructions Patient Education 11/04/2022 16:28:02 Managing Anxiety, Adult Managing Anxiety, Adult After being diagnosed with anxiety, you may be relieved to know why you have felt or behaved a certain way. You may also feel overwhelmed about the treatment ahead and what it will mean for your life. With care and support, you can manage this condition. How to manage lifestyle changes Managing stress and anxiety Stress is your body's reaction to life changes and events, both good and bad. Most stress will lastjust a few hours, but stress can be ongoing and can lead to more than just stress. Although stress can play a major role in anxiety, it is not the same as anxiety. Stress is usually caused by something external, such as a deadline, test, or competition. Stress normally passes after the triggering event has ended. Anxiety is caused by something internal, such as imagining a terrible outcome or worrying that something will go wrong that will devastate you. Anxiety often does not go away even after the triggering event is over, and it can become long-term (chronic) worry. It is important to understand the differences between stress and anxiety and to manage your stress effectively so that it does not lead keri anxious response. Talk with your health care provider or a counselor to learn more about reducing anxiety and stress.He or she may suggest tension reduction techniques, such as: Music therapy. Spend time creating or listening to music that you enjoy and that inspires you. Mindfulness-based meditation. Practice being aware of your normal breaths while not trying to control your breathing. It can be done while sitting or walking. Centering prayer. This involves focusing on a word, phrase, or sacred image that means something toyou and brings you peace. Deep breathing. To do this, expand your stomach and inhale slowly through your nose. Hold your breath for 3 5 seconds. Then exhale slowly, letting your stomach muscles relax. Self-talk. Learn to notice and identify thought patterns that lead to anxiety reactions and change those patterns to thoughts that feel peaceful. Muscle relaxation. Taking time to tense muscles and then relax them. Choose a tension reduction technique that fits your lifestyle and personality. These techniques take time and practice. Set aside 5 15 minutes a day to do them. Therapists can offer counseling and training in these techniques. The training to help with anxiety may be covered by some insurance plans. Other things you can do to manage stress and anxiety include: Keeping a stress diary. This can help you learn what triggers your reaction and then learn ways to manage your response. Thinking about how you react to certain situations. You may not be able to control everything, but you can control your response. Making time for activities that help you relax and not feeling guilty about spending your time in this way. Doing visual imagery. This involves imagining or creating mental pictures to help you relax. Practicing yoga. Through yoga poses, you can lower tension and promote relaxation. Medicines Medicines can help ease symptoms. Medicines for anxiety include: Antidepressant medicines. These are usually prescribed for long-term daily control. Anti-anxiety medicines. These may be added in severe cases, especially when panic attacks occur. Medicines will be prescribed by a health care provider. When used together, medicines, psychotherapy, and tension reduction techniques may be the most effective treatment. Relationships Relationships can play a big part in helping you recover. Try to spend more time connecting with trusted friends and family members. Consider going to couples counseling if you have a partner, taking family education classes, or going to family therapy. Therapy can help you and others better understand your condition. How to recognize changes in your anxiety Everyone responds differently to treatment for anxiety. Recovery from anxiety happens when symptomsdecrease and stop interfering with your daily activities at home or work. This may mean that you will start to: Have better concentration and focus. Worry will interfere less in your daily thinking. Sleep better. Be less irritable. Have more energy. Have improved memory. It is also important to recognize when your condition is getting worse. Contact your health care provider if your symptoms interfere with home or work and you feel like your condition is not improving. Follow these instructions at home: Activity Exercise. Adults should do the following: ?Exercise for at least 150 minutes each week. The exercise should increase your heart rate and makeyou sweat (moderate-intensity exercise). ?Strengthening exercises at least twice a week. Get the right amount and quality of sleep. Most adults need 7 9 hours of sleep each night. Lifestyle Eat a healthy diet that includes plenty of vegetables, fruits, whole grains, low-fat dairy products, and lean protein. ?Do not eat a lot of foods that are high in fats, added sugars, or salt (sodium). Make choices that simplify your life. Do not use any products that contain nicotine or tobacco. These products include cigarettes, chewing tobacco, and vaping devices, such as e-cigarettes. If you need help quitting, ask your health careprovider. Avoid caffeine, alcohol, and certain wyme-tjk-xeectkf cold medicines. These may make you feel worse. Ask your pharmacist which medicines to avoid. General instructions Take pgoi-sst-zlpulkq and prescription medicines only as told by your health care provider. Keep all follow-up visits. This is important. Where to find support You can get help and support from these sources: Self-help groups. Online and community organizations. A trusted spiritual leader. Couples counseling. Family education classes. Family therapy. Where to find more information You may find that joining a support group helps you deal with your anxiety. The following sources can help you locate counselors or support groups near you: Mental Health [place]: www.mentalhealthamerica.net Anxiety and Depression Association of [place] (ADAA): www.adaa.org National [place] on Mental Illness (SHEY): www.shey.org Contact a health care provider if: You have a hard time staying focused or finishing daily tasks. You spend many hours a day feeling worried about everyday life. You become exhausted by worry. You start to have headaches or frequently feel tense. You develop chronic nausea or diarrhea. Get help right away if: You have a racing heart and shortness of breath. You have thoughts of hurting yourself or others. If you ever feel like you may hurt yourself or others, or have thoughts about taking your own life,get help right away. Go to your nearest emergency department or: Call your local emergency services (911 in the [place] Call a suicide crisis helpline, such as the National Suicide Prevention Lifeline at or 124 in the [place] This is open 24 hours a day in the [place] Text the Crisis Text Line at 350257 (in the [place] Summary Taking steps to learn and use tension reduction techniques can help calm you and help prevent triggering an anxiety reaction. When used together, medicines, psychotherapy, and tension reduction techniques may be the most effective treatment. Family, friends, and partners can play a big part in supporting you. This information is not intended to replace advice given to you by your health care provider. Make sure you discuss any questions you have with your health care provider. Document Revised: 08/23/2021 Document Reviewed: 05/21/2021 [employer] Patient Education 2022 [employer]. Follow Up Care 11/04/2022 12:21:25 With:[facility] Address:Unknown When:11/07/2022 15:59:09 With:Diamante Cleveland Address: [address] [place] [address], [address] [place] [address] [facility] (1) When:11/07/2022 15:58:15 Comments:Make sure to follow-up with your primary doctor for blood pressure check as well to make sure you are not developing hypertension. Follow-up with [facility]. Return to the emergency room if your symptoms recur or any new symptoms. [facility]09-24-2023 Evaluation + Plan noteExtracted from: Title:ED Note Author:Parveen Buckner, Gladys Rodriguez Gerry te:11/04/22 1. Anxiety (F41.9: Anxiety d isorder, unspecified) Orders: hydrOXYzine, 50 mg = 1 mL, Injection, IntraMuscular, Once, Stop date 11/04/22 12:35:00 EDT, STAT, Start date 11/04/22 12:35:00 EDT, 11/04/22 12:35:00 EDT hydrOXYzine, 1-2 cap(s), Oral, QID, PRN as needed for anxiety, # 30 cap(s), Refills(s) 0, Pharmacy: [facility], 158, cm, 11/04/22 12:27:00 EDT, Height/Length Dosing, 74.7, kg, 11/04/22 12:27:00 EDT, Weight Dosing lorazepam, 1 mg = 1 tab(s), Tab, Oral, Once, Stop date 11/04/22 13:36:00 EDT, STAT, Start date 11/04/22 13:36:00 EDT, 11/04/22 13:36:00 EDT Automated Diff Basic Metabolic Panel CBC w/ Auto Diff eGFR [facility]07-18-2023 Hospital Discharge instructions Follow Up Care 08/28/2022 09:06:34 With:Lorie Morocho MD, [facility], [facility] Address: [address] [place] [phone]- [phone] When: only if needed [facility] 07-08-2023 Evaluation + Plan noteExtracted from: Title:Discharge Note Author:Kam Rizzo MD ate:08/18/22 Discharge To, Anticipated II - Home with responsible caregiver Transported by, Anticipated - Family Discharge Diet(s): Regular (08/18/22 08:39:00) Prescriptions cloNIDine 0.1 mg tab, 0.1 mg= 1 tab(s), Oral, BID, 11 refills gabapentin 800 mg Tab, 800 mg= 1 tab(s), Oral, TID, 5 refills hydrOXYzine hydrochloride 50 mg oral tablet, 50 mg= 1 tab(s), Oral, QID, PRN Home No active home medications With When Contact Information Anthony SINGLETARY, SALOMÓN Singh Within 2 to 4 weeks [address] [place] [address]- Additional Instructions: Illegal Drug Use Information, Adult Toxic Metabolic Encephalopathy Addendum by Kam Rizzo MD on August 18, 2022 09:11:10 EDT Patient was unable to make it to the methadone clinic today. Called the methadone clinic to get the patient's daily dose. Have prescribed 2 days for the patient so that she can make it until Saturday. Extracted from: Title:APSO Note-neurology Author:Luke Qureshi RN Date:08/18/22 Reason for consult: Altered mental status ASSESSMENT: Altered mental status related to acute polysubstance abuse. In recent times just prior to admission she admits to cocaine usage, methamphetamine usage, alcohol overconsumption, and trazodone administration. Now alert and oriented. PLAN: No other recommendations. Substance abuse cessation discussed. She thinks she is going to stay with her mother. She says she gets into trouble when she hangs out with friends. 1. Acute encephalopathy (G93.40: Encephalopathy, unspecified) 2. Hepatitis (K75.9: Inflammatory liver disease, unspecified) 3. Elevated liver enzymes (R74.8: Abnormal levels of other serum enzymes) 4. Active substance abuse (F19.10: Other psychoactive substance abuse, uncomplicated) 5. History of alcohol abuse (F10.11: Alcohol abuse, in remission) 6. Leukocytosis (D72.829: Elevated white blood cell count, unspecified) 7. Dehydration (E86.0: Dehydration) 8. Bipolar disorder (F31.9: Bipolar disorder, unspecified) 9. Obesity (E66.9: Obesity, unspecified) Extracted from: Title:Consult Note- Neurology Author:Bekah Billings RN Date:08/17/22 Reason for consult: Altered mental status ASSESSMENT: I suspect the altered mental status all relates to polysubstance abuse. She may be altered in relation to coming down from cocaine and methamphetamine intoxication. Questionable opiate intoxication as she improved with Narcan administration. At this point, low suspicion for any acute neurological disease. PLAN: If encephalopathy does not gradually not improve on its own we will consider additional neurological work-up such as imaging or electroencephalography. 1. Acute encephalopathy, (G93.40: Encephalopathy, unspecified)Encephalopathy, unspecified 2. Hepatitis (K75.9: Inflammatory liver disease, unspecified) 3. Elevated liver enzymes (R74.8: Abnormal levels of other serum enzymes) 4. Active substance abuse (F19.10: Other psychoactive substance abuse, uncomplicated) 5. History of alcohol abuse (F10.11: Alcohol abuse, in remission) 6. Leukocytosis (D72.829: Elevated white blood cell count, unspecified) 7. Dehydration (E86.0: Dehydration) 8. Bipolar disorder (F31.9: Bipolar disorder, unspecified) 9. Obesity (E66.9: Obesity, unspecified) Extracted from: Title:Admission H & P Author:Gunnar HOGAN DO Date:08/17/22 1. Acute encephalopathy (G93 .40: Encephalopathy, unspecified) Suspect predominantly driven by #4 below had considered cholinergic side effects to recent institution of oxybutynin but when she presented to the emergency department 2 days prior she stated she did not like the way it made her feel therefore discontinued this at the time my evaluation patient was somnolent due to as being administration in the emergency department which was necessitate it based on her previous state and agitation. We will continue prn IV benzodiazepine patient recovers from polysubstance abuse patient continues to have behavioral issues as she recovers from polysubstance abuse at that time ? Antipsychotics with mood disorder listed below. Her respiratory status and respiratory suppression as we use benzodiazepines. She does have an elevated white cell count however I suspect that it is a stress response that she is afebrile. I see no dense infiltrates on her chest x-ray and UA is negative. Serum ammonia is elevated but it is only mildly elevated less inclined to believe hepatic encephalopathy is playing a significant role but will monitor for any escalation or in specific therapy note there is no physical exam evidence of trauma he of the head is negative for any acute pathology Ordered: lorazepam, 1 mg = 0.5 mL, Injection, IV Push, q4hr PRN Agitation, Routine, Start date 08/17/22 6:39:00 EDT, 08/17/22 6:39:00 EDT Ammonia Level Sedimentation Rate Automated TSH With T4fr Reflex Vitamin B12 Level 2. Hepatitis (K75.9: Inflammatory liver disease, unspecified) Chart suggest hepatitis B and C likely prominent because of below. It is uncertain whether she has received treatment unable to be interviewed 3. Elevated liver enzymes (R74.8: Abnormal levels of other serum enzymes) LFTs are persistently elevated but they appear to be pending lower when comparing 07/26 then a recent visit on 08/15 comparing to values on this presentation. Unable to identify medications patient is taking at home that could also contribute. 4. 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 We will continue as needed IV benzodiazepines until she recovers above 5. History of alcohol abuse (F10.11: Alcohol abuse, in remission) Level was negligible. She does have a significant history of alcohol use but is uncertain he has recently abstained that would enter into the differential of a potential component of alcohol withdrawal as well as above, we will hope to have access to friends family or improvement in patient's mental status to further interview in regards to this potential 6. Leukocytosis (D72.829: Elevated white blood cell count, unspecified) Suspect a stress response. Patient is afebrile. I see no dense infiltrates on the chest x-ray. UA is negative and patient is afebrile check sedimentation rate 7. Dehydration (E86.0: Dehydration) Intravascular depletion is noted, she is prerenal. We will continue IV 8. Bipolar disorder (F31.9: Bipolar disorder, unspecified) Uncertain whether patient has been compliant with her medications at which medication she is on. Recover from above access to her physician's records or family that can provide further insight 9. Obesity (E66.9: Obesity, unspecified) Orders: ondansetron, 4 mg = 2 mL, Injection, IV Push, q6hr PRN Nausea, Routine, Start date 08/17/22 6:36:00 EDT Sodium Chloride 0.9% intravenous solution 1,000 mL, 1,000 mL, IV, 75 mL/hr, Routine, Start date 08/17/22 6:36:00 EDT, 13.3 hour(s), Total volume (mL): 1,000, 74.8 kg, 1.85, m2 Basic Metabolic Panel Cardiac Monitoring CBC w/ Auto Diff Elevate Head of Bed Notify Provider Vital Signs Notify Provider Vital Signs NPO Diet Oxygen Protocol Place in Status Place in Status Precautions Precautions Precautions Resuscitation Status - Full Vital Signs Weight Patient is admitted as an observation with the anticipation as she recovers from above that she would not require 2 midnight stay Addendum by Kam Rizzo MD on August 17, 2022 11:47:41 EDT Patient seen at bedside this morning. Patient is resting comfortably. Patient is ANO x2 for me this morning when she wakes up. Appreciate neurology's assessment and plan. Extracted from: Title:ED Note Author:Darren Guzman DO Date :08/16/22 Active substance abuse (F19. 10: Other psychoactive substance abuse, uncomplicated) Altered mental status (R41.82: Altered mental status, unspecified) Elevated liver enzymes (R74.8: Abnormal levels of other serum enzymes) Orders: lorazepam, 1 mg = 0.5 mL, Injection, IV Push, Once, Stop date 08/17/22 0:00:00 EDT, Start date 08/17/22 0:00:00 EDT, 08/16/22 23:33:00 EDT lorazepam, 1 mg = 0.5 mL, Injection, IV Push, Once, Stop date 08/17/22 1:00:00 EDT, Start date 08/17/22 1:00:00 EDT, 08/17/22 0:34:00 EDT lorazepam, Injection, Misc, Once, Stop date 08/17/22 0:32:13 EDT, Physician Stop, 08/17/22 0:32:13 EDT lorazepam, Injection, Misc, Once, Stop date 08/17/22 0:16:20 EDT, Physician Stop, 08/17/22 0:16:20 EDT lorazepam, 1 mg = 0.5 mL, Injection, IntraMuscular, Once, Stop date 08/17/22 1:00:00 EDT, Start date 08/17/22 1:00:00 EDT, 08/17/22 0:34:00 EDT Sodium Chloride 0.9% intravenous solution, 1,000 mL, Soln-IV, IV, Once, Stop date 08/16/22 23:33:00 EDT, STAT, Start date 08/16/22 23:33:00 EDT, Infuse over 61, minute(s) Acetaminophen Level Ammonia Level Automated Diff Basic Metabolic Panel Beta hCG Qual CBC w/ Auto Diff Continuous Pulse Oximetry CT Head or Brain w/o Contrast Drug Screen Urine ECG 12 Lead Adult ED Cardiac Monitoring ED Physician consult Hospitalist for continued care eGFR Ethanol Level Hepatic Function Panel Oxygen Therapy Restraint Evaluate Need to Continue After 24 Hours Restraint Initiate Non-Violent / Lzj-[id number]-Eiapsdgvtjb Behavior Restraint Monitoring Non-Violent / Non-Self- Destructive Behavior Restraint Progress Note Routine Capillary Glucose POC Salicylate Level Saline Lock Insert Straight Cath Troponin 0 Hr. UA With Cult Reflex XR Chest Single View Future Appointments Appointment Date:10/17/2022 09:20:00 AM Scheduled Provider:Amanda BARRIOS CNP Location:[facility] Appointment Type:[place] [facility] NoteKettering Health TroyComment on above:Result Comment: Electronically Signed By: Matthias SINGLETARY, Kam Medrano\.br\Date and Time Signed: 08/18/22 09:11 [id number] Hospital Discharge instructions Patient Education 08/18/2022 08:40:12 Illegal Drug Use Information, Adult Illegal Drug Use Information, Adult Illegal drugs are chemicals and substances that are illegal to use, sell, or have (possess). Healthcare providers and pharmacies do not use or carry these types of drugs to treat medical problems because they can cause serious side effects and can lead to . Examples of illegal drugs include: Cocaine or crack. Meth (methamphetamine) or crystal meth. Bath salts (synthetic cathinones). Heroin. LSD or acid. PCP (phencyclidine). Ecstasy. What is drug dependence? Using illegal drugs often leads to dependence or addiction. When you use certain drugs over a long period of time, your brain chemistry changes so that you can no longer function normally without that drug. This is called drug dependence. Drug dependence can cause you to: Have unpleasant feelings and physical problems when you stop using the drug (withdrawal). Be unable to perform at work or at home, or do the activities you used to do, without using the drug. Some drugs make people feel so good that they want to use the drug again and again. This is called drug addiction. People who are addicted spend a lot of time seeking out the drug so that they can get the feeling they want from it. Addiction and dependence can be very hard to overcome. How can illegal drug use and dependence affect me? Using an illegal drug only once can have a major impact on your life. It is possible to from side effects after using a drug just once. If you use an illegal drug repeatedly, you may need to takelarger and larger doses of the drug to experience the feelings you want. Drug dependency and addiction may lead to: Being unable to care for yourself and others. Trouble with finances due to using your money for drugs. Withdrawal, if you stop using the drug. Negative effects on your relationships and work performance. It causes others not to trust you. If you have children, you could lose custody of them. Behavior problems, such as: ?Behaving in ways that do not match your values. ?Lying and crime, such as stealing. Fdc or senior living. This can affect your ability to find a good job or continue your education. Health problems such as tooth loss, skin problems, heart and lung disease, and stomach problems. A drug overdose. This is a dangerous situation that requires hospitalization and often leads to . If you are a woman, you may have problems with your , including: ?Losing the early (miscarriage), early delivery (premature ), or delivering a lifeless (stillbirth). ?Slow or abnormal growth ( defects) of your unborn child. ?Giving to a who is addicted to illegal drugs. What actions can I take to avoid illegal drug use? To avoid using illegal drugs: Find healthy ways to cope with stress, such as exercise, meditation, or spending time with family and friends. Talk with your health care provider about how you feel and how to cope with stress. Spend time with people who do not use illegal drugs, or make new friends who do not use drugs. Do something else instead of using drugs. You can exercise, take up a hobby, or participate in activities that you can do with others. Do not be afraid to say no if someone offers you an illegal drug. Speak up about why you do not want to use drugs. You can be a positive role model for others. Work with a health care provider or counselor to create a program for yourself to help you deal with various aspects of drug use or addiction. Where to find more information You can find more information about illegal drug use, dependence, and addiction from: Your health care provider or mental health counselor. Narcotics Anonymous: www.na.org Substance Abuse and Mental Health Services Administration ([facility]): ?Treatment finder: https://www.[facility].gov/find-help ?National helpline: 2-671-136-HELP (7056) Contact a health care provider if: You use illegal drugs and you want help to change your addictive behavior. You lose interest in things you used to enjoy, like hobbies or family activities. Your eating or sleeping habits change as a result of drug use. You use medicine to get the same effects as a drug. This is illegal use and can become addictive aswell. You stopped illegal drug use previously and you start actively using it again (relapse). Get help right away if: You have thoughts about hurting yourself or others. If you ever feel like you may hurt yourself or others, or have thoughts about taking your own life,get help right away. Go to your nearest emergency department or: Call your local emergency services (221 in the [place] Call a suicide crisis helpline, such as the National Suicide Prevention Lifeline at or 637 in the [place] This is open 24 hours a day in the [place] Text the Crisis Text Line at 989117 (in the [place] Summary Illegal drugs are chemicals and substances that are illegal to use, sell, or possess. Using illegal drugs often leads to dependence or addiction. Addiction and dependence can be very hard to overcome. If you use illegal drugs, look for resources to help you quit and find healthy ways to cope with stress. This information is not intended to replace advice given to you by your health care provider. Make sure you discuss any questions you have with your health care provider. Document Revised: 08/23/2021 Document Reviewed: 05/26/2021 [employer] Patient Education 2022 [employer] 08/18/2022 08:40:02 Toxic Metabolic Encephalopathy Toxic Metabolic Encephalopathy Toxic metabolic encephalopathy (TME) is a type of brain disorder caused by a change in brain chemistry. This condition may result from illnesses or conditions that cause an imbalance of fluid, minerals (electrolytes), and other substances in the body. This imbalance can affect the way the brain functions. The condition is not caused by brain damage or brain disease. TME can cause confusion and other mental disturbances, which are generally referred to as delirium.Untreated delirium may lead to permanent mental changes or worsening medical conditions. Untreated delirium is a life-threatening condition that may need to be treated in the hospital. What are the causes? Possible causes of TME that can lead to delirium include: High or low levels of any of the following substances in the blood: ?Calcium. ?Salt (sodium). ?Sugar (glucose). ?Magnesium. ?Phosphate. Not having enough oxygen in the blood. Changes in the acid level (pH) of the blood. Certain medicines, such as steroids, sedatives, sleeping aids, or pain medicines. High body temperature or certain infections. Dehydration. Short-term (acute) or long-term (chronic) disease of the kidney or liver. Low levels of B vitamins. This can result from alcohol abuse. What increases the risk? You are more likely to develop this condition if you: Have chronic medical problems, such as diabetes, liver disease, kidney disease, heart disease, or lung disease. Had recent surgery. Are in the hospital, especially in intensive care. Are elderly, have dementia, or live in a senior living. Are not getting enough fluids. Have poor nutrition. Abuse alcohol or have alcohol withdrawal. What are the signs or symptoms? Symptoms of TME may include: Not being able to stay awake (drowsiness) or even loss of consciousness (coma). Shaking that you cannot control (tremors) or muscle twitching. Clumsiness or weakness. Seizures. Symptoms of delirium caused by TME include: Confusion, not knowing where you are (disorientation), poor judgment, memory loss, or poor attention and concentration. Decreased alertness. Changes in speech, such as saying things that do not make sense. Psychiatric symptoms, such as seeing or hearing things that are not real (hallucinations), false beliefs (delusions), or general mistrust of others (paranoia). Mood changes like depression, anxiety, irritability, or hyperactivity. Avoiding other people. Changes in eating and sleeping patterns. Delirium may come and go. Symptoms of delirium may start suddenly or gradually, and they often get worse at night. How is this diagnosed? This condition is diagnosed based on: Your symptoms and behavior. An exam to check how you are thinking, feeling, and behaving (mental status exam). To diagnose delirium, the mental status exam must rule out other possible causes of TME, and it must show: ?Changes in attention and awareness. ?Changes that develop over a short period of time and tend to come and go. ?Changes in memory, language, and thinking that were not present before. A physical exam and medical history. Imaging tests, such as an MRI or a CT scan. Blood tests to: ?Measure liver and kidney function. ?Check B vitamin levels. ?Check for changes in acid levels (pH) and changes in calcium, sodium, or magnesium levels in the blood. ?Measure your blood glucose. ?Measure your blood oxygen level. How is this treated? Treatment for TME depends on the cause, and it may include: Getting fluids through an IV. Regulating calcium, sodium, glucose, or magnesium levels in the body. Getting oxygen. Improving nutrition. Treating liver or kidney disease. Adjusting certain medicines. Treating infections. If the cause is found and treated, delirium usually improves. Managing delirium may include: Keeping the room well-lit and quiet. Using calendars, pictures, and clocks to prevent disorientation. Having frequent checks from nursing staff and visits from caregivers. Wearing eyeglasses or a hearing aid, if needed. Physical therapy. Medicine to treat agitation, anxiety, hallucinations, or delusions. Follow these instructions at home: Medicines Take eupz-zcd-kpcjzyd and prescription medicines only as told by your health care provider. Do not start taking any new medicines, including rijn-qtl-uhiywna medicines, without first checkingwith your health care provider. Eating and drinking Drink enough fluid to keep your urine pale yellow. Follow a healthy diet. Do not skip meals. Do not drink alcohol. General instructions Go to bed at the same time every night. Return to your normal activities as told by your health care provider. Ask your health care provider what activities are safe for you. Keep all follow-up visits. This is important. Contact a health care provider if: You have a fever. You are unable to feed yourself or hydrate yourself. You start to feel clumsy. You start to have tremors or weakness. Get help right away if: You have a seizure. You lose consciousness. You have trouble breathing. You feel unable to care for yourself at home. You become disoriented at home. These symptoms may represent a serious problem that is an emergency. Do not wait to see if the symptoms will go away. Get medical help right away. Call your local emergency services (911 in the [place] Do not drive yourself to the hospital. Summary Toxic metabolic encephalopathy (TME) is a brain disorder that may result from illnesses or conditions that cause an imbalance of fluid, minerals (electrolytes), and other substances in the body that affect the way the brain functions. Your health care provider will diagnose TME based on your symptoms, behavior, physical exam and medical history, imaging, and blood tests. Your health care provider will also do an exam to check how you are thinking, feeling, and behaving(mental status exam). TME is treated by identifying and correcting the underlying cause. This information is not intended to replace advice given to you by your health care provider. Make sure you discuss any questions you have with your health care provider. Document Revised: 11/15/2020 Document Reviewed: 11/15/2020 [employer] Patient Education 2022 [employer]. Follow Up Care 08/16/2022 23:31:02 With:Anthony SINGLETARY, SALOMÓN Singh Address: [address] [place] [address]- When:2 to 4 weeks [facility]07[facility]07-2023 [facility]:Result Comment: Electronically Signed By: Matthias SINGLETARY, Kam Medrano\.br\Date and Time Signed: 08/17/22 11:48 [id number] Hospital Discharge instructions Follow Up Care 07/17/2022 11:17:20 With:Amanda BARRIOS CNP Address: [address] [place] [id number]- When:Within 2 Month(s) [facility] 05-01-2023 Note [id number] Discharge summary Author Gautam arteaga [facility] June 10, 2022 7:53am Note Date/Time June 10, 2022 7:5 2am [facility] [address] [place] [address] Discharge Summary Signed Patient: Lyle Flynn MR#: [id number] : 1990 Acct:[id number] Age/Sex: 32 / F Adm Date: 3 Loc: Room: [address] [place] [address]: Nguyễn Burrows MD Copies to: MD Amanda Escamilla HARDBOARD PRESS OPERATOR, ELECTRICIAN SUPERVISOR SUBSTATION~ Providers Date of Discharge: 06/10/22 Discharging Provider: Nguyễn Burrows Primary Care Provider: Amanda Barrios Consults: 06/07/22 17:43 Consult to Case Management Routine Consult to Sleep Lab Routine Discharge Diagnosis (1) Anxiety: (2) Hep C w/o coma, chronic: (3) Depression: Final Diagnosis Final Discharge Diagnosis: MDD Anxiety Summary Hospital Course Hospital course: Ms. Flynn is a 32 year old female with reported history of depression, anxiety and opiate use disorder who presents for inpatient admission due to worsening ofdepression and feeling suicidal.? Reportedly, she presented to the? ED with a complaint of having been found walking around the budget and naked.? The patienthas been drinking states that she was drinking last night states that she woke up took half a shot.? Patient arrives here states that she had a fall and statesthat she is having some right the posterior aspect rib pain.? At the time of the interview, she presented as depressed.? For at least two weeks,? the patient complains of? depressed mood most of the day every day, decreased interest in activities normally enjoyed, low energy and fatigue throughout the day even when sleeping adequately, feelings of worthlessness, guilt for no reason, and poor focus and concentration in routine activities.? She rates her depression and anxiety are at 10/10. Patient denies AH/VH. Patientstates she has suicidal thoughts and felt it safer to be hospitalized.? She reports receiving methadone from the methadone clinic.? I discussed with her that we will wait for document verification from her methadone clinic prior to restarting. Patient denies homicidal thoughts or plans. Patient states she drinks a gallon of vodka a day.? She denies symptoms suggestive of evita, psychosis or agitation.? She reports using methamphetamine and her UDS was positive for amphetamine.? Past psychiatric history is relevant for previous suicide attempts by overdose and previous psychiatric hospitalizations. The course of treatment: The patient was familiar with the mental health therapy services available whileon the unit and was encouraged to participate. Patient presented initially as depressed and felt her medication regimen needs to be updated. Methadone was continued after obtaining verification from her outpatient provider. Psychotropic medications targeting mood and anxiety were started and she was provided supportive and reality oriented therapy. She was started on Lexapro tohelp with depression and anxiety. She was also intiated on CIWA with Ativan for alcohol withdrawal. She felt that her symptoms have improved on the current medication regimen, and has been compliant with treatment, and reported no side effects. Her sleep and appetite were okay. She has been attending groups and described them as useful building coping skills. The patient has denied any access to firearms or lethal weapons. She was offered rehab but preferred the outpatient follow up route. She felt better than before coming to the hospital and feels hopeful regarding her future. She understands the importance of outpatient follow-up to ensure the stability of her symptoms. She denied suicidal or homicidal ideation and verbalized the intent to notify the staff if she has such thoughts. No suicidal or self-injurious behaviors occurred during inpatient treatment. The patient described that her depressive feelings have been relieved, and she has a better understanding of how to cope with stress due to her inpatient admission. She was given emotional support, counseled, and educated regarding the prognosis of her diagnosis. She expresses understanding and says she is better after learning coping skills and the medications prescribed in the inpatient unit. She was in a good place to return home and engage fully in her life Patient stated that she is able to keep her positive thoughts. The patient stated that she was ready to go. She did not meet criteria for involuntary psychiatric hospitalization. Patient achieved maximum benefit from attending inpatient treatment and was suitable for outpatient follow up. I explained to the patient that her discharge from the hospital does not mean that her medicalcare ends here. She needs consistent outpatient follow-up, cognitive behavioral therapy, and treatment plan to be handled from this point on by out patient team. Discharge disposition: Home with . Coordinated via case management. Safe discharge Planning: With the cessation of all suicidal ideation, improvements in mood, and absence of any psychotic symptoms at the time of discharge, aftercare plans were solidified. She was able to formulate a believable Safety Plan. Discharge plans were discussed with the patient, her BF, and the treatment team. All agreed with the discharge plan. On the day of discharge, she was evaluated and had no complaints. She denied any SI/HI. She agreed to follow up with outpatient treatment as arranged by case management. She had no complications during her stay. Suicide risk assessment: A thorough review of risk and protective factors was conducted. Discussed with the patient the following recommendations that would help reduce suicide which includes limiting the number of medications to a 15-day supply with one refill at the time of discharge to avoid potential overdose,consistent outpatient follow up preferably within seven days of release, involving family members in her care, and her desire to live. We also discussed availability of outpatient DBT groups which can be lifesaving. She reports good therapeutic alliance, good response to medication management and therapy, availability of local mental health services and willingness to follow up, lack of suicidal ideation, intent or plan, lack of impulsivity, agitation, or psychotic behavior. Pt is future- oriented and understands the importance of outpatient follow-up. Most psychiatric experts agree that predicting suicide is not an option but considering positive factors like family and andrea, lack of access to firearms, and desire to continue treatment makes her current suicide risk minimal. Given the chronicity of suicidality, we discussed measures to help her with long-term safety. The patient is not suicidal or psychotic now. To help decreaseher suicide risk, as best I can, I am referring her for outpatient treatment andCBT for long-term follow-up to have somewhere to go and someone to manage her assymptoms and stressors develop. This is the best way to keep her alive. So, we discussed a crisis plan for future suicidality: at the first sign of distress, she will call the hotline; if this is not sufficient, she will 911, then call family members or friends; ultimately, she will come to the ER. Safety: The patient is not acutely psychotic and is safe to continue treatment on an outpatient basis. The patient was made aware of the 03/09 emergency services of the crisis center. She was advised to call 911 or go to the nearest ER in case of a crisis ( (including having thoughts of harming herself or others). Risks (metabolic, EPS, the effect on heart), benefits, and alternatives for medications were discussed. She verbalized understanding. Her consent was obtained. She was advised not to drink alcohol while taking medications. I advised patientthat using drugs can increase risk of impulsiveness and making poor decisions. Continue supportive therapy with some CBT techniques. Psycho-education and compliance counseling were provided. She denies current and is aware to notify her psychiatrist if she becomes due to the risk of harm to the fetus. MSE: Orientation: Alert and oriented to person, place, and time. Appearance/Behavior: Fair grooming and hygiene, calm, cooperative, engaged in the interview. Good eye contact. Normal psychomotor activity. Speech: normal rate, rhythm, volume, and tone. Non pressured. Knowledge: Appropriate for age and level of education Mood: okay Affect: reactive, mood-congruent Thought process: linear, logical, and goal-oriented Thought content: No SI/HI. No AVH. No delusions. Does not appear to be responding to internal stimuli. Concentration: Grossly intact based on track during the interview Associations: No loosening of associations Memory: Able to recall recent and remote historical information Insight: Fair, able to appreciate current symptoms and need for outpatient treatment Judgment: fair, agreed to follow treatment recommendations, socially appropriate with interviewer and staff. Time spent discussing smoking cessation with patient: more than 10 minutes Condition Condition at Discharge: Fair Status at Discharge Functional status at discharge: independent ambulation Time Spent with Patient Time spent providing/coordinating discharge services (# min): 80 Exam Physical Exam Vital Signs: Temp Pulse Resp BP Pulse Ox O2 Del Method 97.5 F L 78 18 132/92 97 Room Air 06/10/22 07:30 06/10/22 07:30 06/10/22 07:30 06/10/22 07:30 06/10/22 07:30 06/10/22 07:30 Discharge Plan Discharge Plan Activity: No Activity Restriction Diet: Regular Prescriptions: New escitalopram oxalate 5 mg Tablet 5 mg PO DAILY 15 Days Qty: 15 1RF Continued gabapentin 800 mg Tablet 800 mg PO TID methadone 10 mg Tablet 115 mg PO DAILY clonidine HCl 0.1 mg tablet 0.1 mg PO DAILY Patient Comments: take 1 tablet by mouth once daily Follow Up: [facility] [Outside] [facility] [Outside] Amanda Barrios APRN, FOOD PRODUCTS TESTER-C [Primary Care Provider] - (Please schedule an appt with your primary provider for any medical needs. ) Documented By: Gautam Burrows MD [id number] Signed By: <Electronically signed by Gautam Burrows MD> 06/10/22 0753 [facility] Work Phone: [phone] 274-134904-29-2023 Progress note Author Gautam arteaga [facility] June 09, 2022 7:51am Note Date/Time June 09, 2022 7:5 1am [facility] [address] [place] [address] Psychiatry Progress Note Signed Patient: Lyle Flynn MR#: [id number] : 1990 Acct:[id number] Age/Sex: 32 / F Adm Date: 3 Loc: Room: [address] [place] [address] Type : ADM IN Attending Dr: Nguyễn Burrows MD Copies to: ~ Date of Service: 06/09/2022 Subjective Subjective Narrative: Ms. Flynn patient report she is feeling better. Depression and anxiety are stabilizing gradually on the current medication regimen. She denied any withdrawal symptoms and is not presenting with any tremors on exam. Anxiety is moderate in intensity with attempted utilization of coping skills. She denies SI/HI and verbalized the intent to notify staff if she has such thoughts. She continues to be compliant with prescribed medications and is visible within the unit milieu. She reported following up with her previous outpatient psychiatrist who recommended Vraylar. She inquired if she needs to restarted and I told her she may consider it as an outpatient as we just started Lexapro. We want to give the current medication more time to work. We have agreed to continue the current medications regimen. Risks, benefits, andindications of medications were discussed. Appearance: dressed casually Mental Status: mental status grossly normal Mood: Euthymic mood Affect: Normal affect Speech and Movement: speech and movement normal and speech clear Attitude: cooperative Thought Process: normal Thought Content: Denied hallucinations, no homicidality and no suicidality Insight: fair Judgment: fair Impulse control: fair Exam Physical Exam Vital Signs: Temp Pulse Resp BP Pulse Ox O2 Del Method 97.5 F L 60 16 123/75 98 Room Air 06/09/22 04:00 06/09/22 04:00 06/09/22 04:00 06/09/22 04:00 06/09/22 04:00 06/09/22 04:00 Abnormal Involuntary Movement Dental Status Are dentures usually worn?: No Assessment/Plan Assessment/Plan (1) Anxiety: Plan: Patient reports her anxiety is moderate and denied SI/HI. She denied any current symptoms of alcohol withdrawal. Monitor suicidal behaviors for safety of self (15-minute face check). Recommend attending groups and psychoeducation for building coping skills. Risks, benefits and indications of medications were discussed with the patient. The patient verbalized understanding. No abnormal movements noted on exam. AIMS is Zero. Code(s): F41.9 - Anxiety disorder, unspecified Status: Acute (2) Hep C w/o coma, chronic: Code(s): B18.2 - Chronic viral hepatitis C Status: Acute (3) Depression: Code(s): F32.9 - Major depressive disorder, single episode, unspecified Status: Acute Documented By: Gautam Burrows MD 3 [id number] Signed By: <Electronically signed by Gautam Burrows MD> 06/09/22 0751 [facility] Work Phone: [phone]) 346-115304-28-2023 History and physical note Author Gautam arteaga [facility] June 08, 2022 9:58am Note Date/Time June 08, 2022 9:5 6am [facility] [address] [place] [address] Psychiatry H&P Signed Patient: Lyle Flynn MR#: [id number] : 1990 Acct:[id number] Age/Sex: 32 / F Adm Date: 3 Loc: 1S Room: [address] [place] [address] Type: ADM IN Attending Dr: Nguyễn Burrows MD Copies to: MD Amanda Escamilla APRN, [employer]LECT[employer]IAN [employer]PER[employer]ATION~ Date of Service: 06/08/2022 HPI History of Present Illness History of present illness: Ms. Flynn is a 32 year old female with reported history of depression, anxiety and opiate use disorder who presents for inpatient admission due to worsening ofdepression and feeling suicidal. Reportedly, she presented to the ED with a complaint of having been found walking around the budget and naked.? The patienthas been drinking states that she was drinking last night states that she woke up took half a shot.? Patient arrives here states that she had a fall and statesthat she is having some right the posterior aspect rib pain.? At the time of the interview, she presented as depressed. For at least two weeks, the patient complains of depressed mood most of the day every day, decreased interest in activities normally enjoyed, low energy and fatigue throughout the day even when sleeping adequately, feelings of worthlessness, guilt for no reason, and poor focus and concentration in routine activities. She rates her depression and anxiety are at 10/10. Patient denies AH/VH. Patientstates she has suicidal thoughts and felt it safer to be hospitalized. She reports receiving methadone from the methadone clinic. I discussed with her that we will wait for document verification from her methadone clinic prior to restarting. Patient denies homicidal thoughts or plans. Patient states she drinks a gallon of vodka a day. She denies symptoms suggestive of evita, psychosis or agitation. She reports using methamphetamine and her UDS was positive for amphetamine. Past psychiatric history is relevant for previous suicide attempts by overdose and previous psychiatric hospitalizations. Mental Status: mental status grossly normal Mood: depressed mood Affect: constricted affect Speech and Movement: speech and movement normal and speech clear Attitude: cooperative Thought Process: normal Thought Content: Denied hallucinations, no homicidality and positive suicidality Insight: limited Judgment: limited Review of Systems Constitutional: Pt denies fatigue, malaise. Neuro: Denies dizziness/lightheadedness. Denies TBI, seizure, memory loss. Denies numbness/tingling in extremities HEENT: Denies vision/hearing changes. Pulmonary: Denies SOB, dyspnea, cough, wheezing. Cardiac: Denies chest pain/pressure. Denies edema, palpitations. GI: Denies abdominal pain, heartburn, N/V. Denies constipation and diarrhea : Denies dysuria, hematuria, polyuria. Physical exam General: not in any acute distress Skin: intact HEENT: head atraumatic, face symmetrical. Pulm: Breathing normally without excessive effort Cardio: Regular rate and rhythm Abdomen: Normal inspection Musculoskeletal: Moves all extremities, normal strength all extremities. Neuro: Pt alert, oriented x3. Gait normal. CNI: Intact, no concerns reported CNII: Visual tejeda intact CNIII,IV,: EOM intact, no nystagmus. CNV: Sensation intact to light touch. CNVII: Raises eyebrows, smile/frown, puff out cheeks symmetrically. CNVIII: Hearing intact bilaterally. CNIX,X: Voice normal, soft palate elevation normal, symmetrical. CNXI: Shoulder shrug strong, equal bilaterally. CNXII: Tongue protrusion midline PMFSH Vaccinated for COVID-19?: Unknown Medical History Accidental heroin overdose Anxiety Blood plasma poisoning Depression ETOH abuse HTN (hypertension) Restless legs syndrome (RLS) Tobacco abuse Surgical History H/O LEEP Hx of appendectomy Family History Mother Depression Family/Other Depression Father Depression Social History Smoking Status: Current every day smoker Tobacco Type: cigarettes Substance Use Type: Alcohol Substance Abuse Comment: on Methadone, drinks 1 gallon of vodka a day. Social History Comments: lives with boyfriend and has 1 son. Pt recently here [id number] Meds Medications and Allergies Allergies codeine Allergy (Verified 04/11/22 08:33) Hives quetiapine [From Seroquel] Adverse Reaction (Verified 04/11/22 08:33) Swelling Home Medications gabapentin 800 mg tablet 800 mg PO TID 08/28/21 [History Confirmed 06/07/22] methadone 10 mg tablet 115 mg PO DAILY 03/05/22 [History Confirmed 06/08/22] clonidine HCl 0.1 mg tablet 0.1 mg PO DAILY 06/07/22 [History Confirmed 06/07/22] Exam Physical Exam Vital Signs: Temp Pulse Resp BP Pulse Ox O2 Del Method 97.9 F 66 16 120/77 95 Room Air 06/08/22 07:32 06/08/22 07:32 06/08/22 07:32 06/08/22 07:32 06/08/22 07:32 06/08/22 08:31 Results Labs 06/07/22 09:20 06/07/22 09:20 Psychiatry Labs: 06/07/22 06/07/22 06/07/22 09:20 09:20 10:01 RBC 4.44 Hgb 13.6 Hct 40.7 MCV 91.7 MCH 30.6 MCHC 33.4 RDW 13.5 Plt Count 142 L MPV 8.5 Sodium 140 Potassium 3.7 Chloride 105 Carbon Dioxide 23.1 Anion Gap 15.6 H BUN 18 Creatinine 0.84 Calcium 9.2 Total Bilirubin 0.9 AST 122 H ALT 109 H Alkaline Phosphatase 87 Total Protein 7.6 Albumin 4.1 Urine Color Dark yellow A Urine Appearance Clear Urine pH 5.5 Ur Specific [place] 1.032 H Urine Protein 30 H Urine Glucose (UA) Normal Urine Ketones 2+ H Urine Occult Blood Negative Urine Nitrite Negative Ur Leukocyte Esterase Negative Urine RBC 3-4 Urine WBC 0-1 Abnormal Involuntary Movement Dental Status Are dentures usually worn?: No Assessment/Plan (1) Anxiety: Plan: Admit to for management of depression and to ensure safety of self due to SI. Start Lexapro 5 mg p.o. daily. Monitor suicidal behaviors for safety of self (15-minute face check). Recommend attending groups and psychoeducation for building coping skills. Risks, benefits and indications of medications were discussed with the patient. The patient verbalized understanding. No abnormal movements noted on exam. AIMS is Zero. Code(s): F41.9 - Anxiety disorder, unspecified Status: Acute (2) Hep C w/o coma, chronic: Code(s): B18.2 - Chronic viral hepatitis C Status: Acute (3) Depression: Code(s): F32.9 - Major depressive disorder, single episode, unspecified Status: Acute Documented By: Gautam Burrows MD 3 [id number] Signed By: <Electronically signed by Gautam Burrows MD> 06/08/22 0958 [facility] Work Phone: [phone]) 488-821703-14-2023 Evaluation note* Encounter Date Diagnosis Assessment Notes Treatment Notes Treatment Clinical Notes Apr, Hepatitis C (ICD-10 - B19.20) THIS PATIENT IS A GOOD CANDIDATE FOR THERAPY WITH _[facility] __ SHE IS MOTIVATED AND AGREES TO PROCEED WITH THERAPY THE PATIENT READINESS CONSENT WAS DISCUSSED AND SIGNED BY PATIENT AND PHYSICIAN SHE DOES NOT HAVE ANY LIMITED LIFE EXPECTACNCY DUE TO NON LIVER COMORBITIES AND AGREES TO RNA TESTING Q 4 WEEKS WHILE ON THERAPY Apr, Hepatitis B infection without delta agent with hepatic coma, unspecified chronicity (ICD-10 - B19.11) [facility] Other 01-31-2023 Hospital Discharge instructions* Discharge Instructions* Leandro Rojas MD - 03/13/2022 1:22 PM EST You were seen in the emergency department for evaluation by [facility]. EKG was normal. Your vitalsigns were stable. Social work met with you. You were unwilling to be withdraw from methadone. You wanted to go back to your resident home. Social work called the resident home and you are able to return. We will discharge you from the emergency department. Please return to the emergency departmentif you have thoughts of harming yourself or others or going through withdrawal. documented in this encounterBON [employer] Phone: [phone]) 299-773608-09-2022 Hospital Discharge instructions Patient Education 09/19/2021 10:35:36 Steps to Quit Smoking, Rmgh-nr-Soxv Steps to Quit Smoking Smoking tobacco is the leading cause of preventable . It can affect almost every organ in the body. Smoking puts you and people around you at risk for many serious, long-lasting (chronic) diseases. Quitting smoking can be hard, but it is one of the best things that you can do for your health. It is never too late to quit. How do I get ready to quit? When you decide to quit smoking, make a plan to help you succeed. Before you quit: Pick a date to quit. Set a date within the next 2 weeks to give you time to prepare. Write down the reasons why you are quitting. Keep this list in places where you will see it often. Tell your family, friends, and co-workers that you are quitting. Their support is important. Talk with your doctor about the choices that may help you quit. Find out if your health insurance will pay for these treatments. Know the people, places, things, and activities that make you want to smoke (triggers). Avoid them. What first steps can I take to quit smoking? Throw away all cigarettes at home, at work, and in your car. Throw away the things that you use when you smoke, such as ashtrays and lighters. Clean your car. Make sure to empty the ashtray. Clean your home, including curtains and carpets. What can I do to help me quit smoking? Talk with your doctor about taking medicines and seeing a counselor at the same time. You are more likely to succeed when you do both. If you are or , talk with your doctor about counseling or other ways to quit smoking. Do not take medicine to help you quit smoking unless your doctor tells you to do so. To quit smoking: Quit right away Quit smoking totally, instead of slowly cutting back on how much you smoke over a period of time. Go to counseling. You are more likely to quit if you go to counseling sessions regularly. Take medicine You may take medicines to help you quit. Some medicines need a prescription, and some you can buy psyb-bqo-wnzzuhj. Some medicines may contain a drug called nicotine to replace the nicotine in cigarettes. Medicines may: Help you to stop having the desire to smoke (cravings). Help to stop the problems that come when you stop smoking (withdrawal symptoms). Your doctor may ask you to use: Nicotine patches, gum, or lozenges. Nicotine inhalers or sprays. Non-nicotine medicine that is taken by mouth. Find resources Find resources and other ways to help you quit smoking and remain smoke-free after you quit. These resources are most helpful when you use them often. They include: Online chats with a counselor. Phone quitlines. Printed self-help materials. Support groups or group counseling. Text messaging programs. Mobile phone apps. Use apps on your mobile phone or tablet that can help you stick to your quit plan. There are many free apps for mobile phones and tablets as well as websites. Examples include QuitGuide from the CDC and smokefree.gov What things can I do to make it easier to quit? Talk to your family and friends. Ask them to support and encourage you. Call a phone quitline (NOW), reach out to support groups, or work with a counselor. Ask people who smoke to not smoke around you. Avoid places that make you want to smoke, such as: ?Bars. ?Parties. ?Smoke-break areas at work. Spend time with people who do not smoke. Lower the stress in your life. Stress can make you want to smoke. Try these things to help your stress: ?Getting regular exercise. ?Doing deep-breathing exercises. ?Doing yoga. ?Meditating. ?Doing a body scan. To do this, close your eyes, focus on one area of your body at a time from headto toe. Notice which parts of your body are tense. Try to relax the muscles in those areas. How will I feel when I quit smoking? Day 1 to 3 weeks Within the first 24 hours, you may start to have some problems that come from quitting tobacco. These problems are very bad 2 3 days after you quit, but they do not often last for more than 2 3 weeks. You may get these symptoms: Mood swings. Feeling restless, nervous, angry, or annoyed. Trouble concentrating. Dizziness. Strong desire for high-sugar foods and nicotine. Weight gain. Trouble pooping (constipation). Feeling like you may vomit (nausea). Coughing or a sore throat. Changes in how the medicines that you take for other issues work in your body. Depression. Trouble sleeping (insomnia). Week 3 and afterward After the first 2 3 weeks of quitting, you may start to notice more positive results, such as: Better sense of smell and taste. Less coughing and sore throat. Slower heart rate. Lower blood pressure. Clearer skin. Better breathing. Fewer sick days. Quitting smoking can be hard. Do not give up if you fail the first time. Some people need to try a few times before they succeed. Do your best to stick to your quit plan, and talk with your doctor ifyou have any questions or concerns. Summary Smoking tobacco is the leading cause of preventable . Quitting smoking can be hard, but it is one of the best things that you can do for your health. When you decide to quit smoking, make a plan to help you succeed. Quit smoking right away, not slowly over a period of time. When you start quitting, seek help from your doctor, family, or friends. This information is not intended to replace advice given to you by your health care provider. Make sure you discuss any questions you have with your health care provider. Document Released: 11/24/2009 Document Revised: 04/17/2019 Document Reviewed: 04/18/2019 [employer] Patient Education 2019 [email or web address]. 09/19/2021 10:35:35 Obesity, Adult, Jcof-st-Tupt Obesity, Adult Obesity is having too much body fat. Being obese means that your weight is more than what is healthy for you. BMI is a number that explains how much body fat you have. If you have a BMI of 30 or more, you are obese. Obesity is often caused by eating or drinking more calories than your body uses. Changing your lifestyle can help you lose weight. Obesity can cause serious health problems, such as: Stroke. Coronary artery disease (CAD). Type 2 diabetes. Some types of cancer, including cancers of the colon, breast, uterus, and gallbladder. Osteoarthritis. High blood pressure (hypertension). High cholesterol. Sleep apnea. Gallbladder stones. Infertility problems. What are the causes? Eating meals each day that are high in calories, sugar, and fat. Being born with genes that may make you more likely to become obese. Having a medical condition that causes obesity. Taking certain medicines. Sitting a lot (having a sedentary lifestyle). Not getting enough sleep. Drinking a lot of drinks that have sugar in them. What increases the risk? Having a family history of obesity. Being an woman. Being a man. Living in an area with limited access to: ?Rehman, recreation centers, or sidewalks. ?Healthy food choices, such as grocery stores and [employer] markets. What are the signs or symptoms? The main sign is having too much body fat. How is this treated? Treatment for this condition often includes changing your lifestyle. Treatment may include: ?Changing your diet. This may include making a healthy meal plan. ?Exercise. This may include activity that causes your heart to beat faster (aerobic exercise) and strength training. Work with your doctor to design a program that works for you. ?Medicine to help you lose weight. This may be used if you are not able to lose 1 pound a week after 6 weeks of healthy eating and more exercise. ?Treating conditions that cause the obesity. ?Surgery. Options may include gastric banding and gastric bypass. This may be done if: ?Other treatments have not helped to improve your condition. ?You have a BMI of 40 or higher. ?You have life-threatening health problems related to obesity. Follow these instructions at home: Eating and drinking Follow advice from your doctor about what to eat and drink. Your doctor may tell you to: ?Limit fast food, sweets, and processed snack foods. ?Choose low-fat options. For example, choose low-fat milk instead of whole milk. ?Eat 5 or more servings of fruits or vegetables each day. ?Eat at home more often. This gives you more control over what you eat. ?Choose healthy foods when you eat out. ?Learn to read food labels. This will help you learn how much food is in 1 serving. ?Keep low-fat snacks available. ?Avoid drinks that have a lot of sugar in them. These include soda, fruit juice, iced tea with sugar, and flavored milk. Drink enough water to keep your pee (urine) pale yellow. Do not go on fad diets. Physical activity Exercise often, as told by your doctor. Most adults should get up to 150 minutes of moderate-intensity exercise every week.Ask your doctor: ?What types of exercise are safe for you. ?How often you should exercise. Warm up and stretch before being active. Do slow stretching after being active (cool down). Rest between times of being active. Lifestyle Work with your doctor and a food expert (dietitian) to set a weight-loss goal that is best for you. Limit your screen time. Find ways to reward yourself that do not involve food. Do not drink alcohol if: ?Your doctor tells you not to drink. ?You are , may be , or are planning to become . If you drink alcohol: ?Limit how much you use to: ?0 1 drink a day for women. ?0 2 drinks a day for men. ?Be aware of how much alcohol is in your drink. In the [place] one drink equals one 12 oz bottle of beer (355 mL), one 5 oz glass of wine (148 mL), or one 1 oz glass of hard liquor (44 mL). General instructions Keep a weight-loss journal. This can help you keep track of: ?The food that you eat. ?How much exercise you get. Take umug-fux-pgqdhjt and prescription medicines only as told by your doctor. Take vitamins and supplements only as told by your doctor. Think about joining a support group. Keep all follow-up visits as told by your doctor. This is important. Contact a doctor if: You cannot meet your weight loss goal after you have changed your diet and lifestyle for 6 weeks. Get help right away if you: Are having trouble breathing. Are having thoughts of harming yourself. Summary Obesity is having too much body fat. Being obese means that your weight is more than what is healthy for you. Work with your doctor to set a weight-loss goal. Get regular exercise as told by your doctor. This information is not intended to replace advice given to you by your health care provider. Make sure you discuss any questions you have with your health care provider. Document Released: 04/21/2012 Document Revised: 10/02/2018 Document Reviewed: 10/02/2018 [employer] Patient Education 2019 [email or web address]. [facility] 06-16-2022 Hospital Discharge instructions Patient Education 07/26/2021 22:07:43 Hepatitis C, Qcwt-ro-Khjw Hepatitis C Hepatitis C is a liver infection that is caused by a virus. Many people have no symptoms or only mild symptoms. Hepatitis C is contagious. This means that it can spread from person to person. You canget this disease through: Blood. . Body fluids, like breast milk, tears, semen, vaginal fluids, and spit (saliva). Blood or organ donations done in the [place] before 1991. Follow these instructions at home: Medicines Take lkdw-ikl-nozrswc and prescription medicines only as told by your doctor. Take your antiviral medicine as told by your doctor. Do not stop taking the antiviral medicine evenif you start to feel better. Do not take any new medicines unless your doctor says that this is okay. This includes pbbx-hvx-eefkvje medicines and control pills. Activity Rest when you feel tired. Do not have sex until your doctor says this is okay. Ask your doctor when you may go back to school or work. Eating and drinking Eat a balanced diet. Eat plenty of: ?Fruits and vegetables. ?Whole grains. ?Low-fat (lean) meats or non-meat proteins, such as beans or tofu. Drink enough fluids to keep your pee (urine) clear or pale yellow. Do not drink alcohol. How is this prevented? Wash your hands often with soap and water. If you do not have soap and water, use hand c t tech. Do not share needles or syringes. Practice safe sex and use condoms. Do not handle blood or body fluids without gloves or other protection. Avoid getting tattoos or piercings in places that are not clean. General instructions Do not share toothbrushes, nail clippers, or razors. Wash your hands often with soap and water. If you do not have soap and water, use hand c t tech. Cover any cuts or open sores on your skin. Keep all follow-up visits as told by your doctor. This is important. You may need follow-up visits every 6 12 months. Contact a doctor if: You have a fever. You have belly (abdominal) pain. Your pee (urine) is dark. Your poop (bowel movement) is the color of nataliia. You have joint pain. Get help right away if: You feel more and more tired (fatigued). You feel more and more weak. You do not feel like eating. You cannot eat or drink without throwing up (vomiting). Your skin or the whites of your eyes turn yellow (jaundice) or turn more yellow than they were before. You bruise or bleed easily. Summary Hepatitis C is a liver infection that is caused by a virus. The virus can be spread through blood and body fluids. Do not take any new medicines unless your doctor says that this is okay. Wash your hands often with soap and water. This helps prevent infection. This information is not intended to replace advice given to you by your health care provider. Make sure you discuss any questions you have with your health care provider. Document Released: 01/10/2009 Document Revised: 01/10/2018 Document Reviewed: 03/05/2017 [employer] Patient Education 2020 [email or web address]. 07/26/2021 22:07:43 Constipation, Adult Constipation, Adult Constipation is when a person has fewer bowel movements in a week than normal, has difficulty having a bowel movement, or has stools that are dry, hard, or larger than normal. Constipation may be caused by an underlying condition. It may become worse with age if a person takes certain medicines anddoes not take in enough fluids. Follow these instructions at home: Eating and drinking Eat foods that have a lot of fiber, such as fresh fruits and vegetables, whole grains, and beans. Limit foods that are high in fat, low in fiber, or overly processed, such as russian fries, hamburgers, cookies, candies, and soda. Drink enough fluid to keep your urine clear or pale yellow. General instructions Exercise regularly or as told by your health care provider. Go to the restroom when you have the urge to go. Do not hold it in. Take hkmf-nwk-pwxzuuk and prescription medicines only as told by your health care provider. These include any fiber supplements. Practice pelvic floor retraining exercises, such as deep breathing while relaxing the lower abdomenand pelvic floor relaxation during bowel movements. Watch your condition for any changes. Keep all follow-up visits as told by your health care provider. This is important. Contact a health care provider if: You have pain that gets worse. You have a fever. You do not have a bowel movement after 4 days. You vomit. You are not hungry. You lose weight. You are bleeding from the anus. You have thin, pencil-like stools. Get help right away if: You have a fever and your symptoms suddenly get worse. You leak stool or have blood in your stool. Your abdomen is bloated. You have severe pain in your abdomen. You feel dizzy or you faint. This information is not intended to replace advice given to you by your health care provider. Make sure you discuss any questions you have with your health care provider. Document Released: 10/26/2004 Document Revised: 01/10/2018 Document Reviewed: 07/18/2016 [employer] Patient Education 2020 [employer]. 07/26/2021 22:07:43 Abdominal Pain, Adult Abdominal Pain, Adult Pain in the abdomen (abdominal pain) can be caused by many things. Often, abdominal pain is not serious and it gets better with no treatment or by being treated at home. However, sometimes abdominal pain is serious. Your health care provider will ask questions about your medical history and do a physical exam to try to determine the cause of your abdominal pain. Follow these instructions at home: Medicines Take rqhk-kqp-mugwfwl and prescription medicines only as told by your health care provider. Do not take a laxative unless told by your health care provider. General instructions Watch your condition for any changes. Drink enough fluid to keep your urine pale yellow. Keep all follow-up visits as told by your health care provider. This is important. Contact a health care provider if: Your abdominal pain changes or gets worse. You are not hungry or you lose weight without trying. You are constipated or have diarrhea for more than 2 3 days. You have pain when you urinate or have a bowel movement. Your abdominal pain wakes you up at night. Your pain gets worse with meals, after eating, or with certain foods. You are vomiting and cannot keep anything down. You have a fever. You have blood in your urine. Get help right away if: Your pain does not go away as soon as your health care provider told you to expect. You cannot stop vomiting. Your pain is only in areas of the abdomen, such as the right side or the left lower portion of the abdomen. Pain on the right side could be caused by appendicitis. You have bloody or black stools, or stools that look like tar. You have severe pain, cramping, or bloating in your abdomen. You have signs of dehydration, such as: ?Dark urine, very little urine, or no urine. ?Cracked lips. ?Dry mouth. ?Sunken eyes. ?Sleepiness. ?Weakness. You have trouble breathing or chest pain. Summary Often, abdominal pain is not serious and it gets better with no treatment or by being treated at home. However, sometimes abdominal pain is serious. Watch your condition for any changes. Take zbvd-jgp-yhtiajz and prescription medicines only as told by your health care provider. Contact a health care provider if your abdominal pain changes or gets worse. Get help right away if you have severe pain, cramping, or bloating in your abdomen. This information is not intended to replace advice given to you by your health care provider. Make sure you discuss any questions you have with your health care provider. Document Released: 11/07/2005 Document Revised: 06/08/2019 Document Reviewed: 06/08/2019 [employer] Patient Education 2020 [employer]. Follow Up Care 07/26/2021 18:02:56 With:Amanda BARRIOS Address: [address] [place] [id number] Business (1) When:07/29/2021 21:42:35 Comments:Follow-up with your primary care provider in 3 to 5 days. If symptoms worsen, do not improve, new symptoms arise please report back to emergency department immediately. Take MiraLAX daily to help promote a normal bowel movement. [facility]05-24-2022 Hospital Discharge instructions Patient Education 07/04/2021 15:44:46 Steps to Quit Smoking, Kvim-wd-Xsbg Steps to Quit Smoking Smoking tobacco is the leading cause of preventable . It can affect almost every organ in the body. Smoking puts you and people around you at risk for many serious, long-lasting (chronic) diseases. Quitting smoking can be hard, but it is one of the best things that you can do for your health. It is never too late to quit. How do I get ready to quit? When you decide to quit smoking, make a plan to help you succeed. Before you quit: Pick a date to quit. Set a date within the next 2 weeks to give you time to prepare. Write down the reasons why you are quitting. Keep this list in places where you will see it often. Tell your family, friends, and co-workers that you are quitting. Their support is important. Talk with your doctor about the choices that may help you quit. Find out if your health insurance will pay for these treatments. Know the people, places, things, and activities that make you want to smoke (triggers). Avoid them. What first steps can I take to quit smoking? Throw away all cigarettes at home, at work, and in your car. Throw away the things that you use when you smoke, such as ashtrays and lighters. Clean your car. Make sure to empty the ashtray. Clean your home, including curtains and carpets. What can I do to help me quit smoking? Talk with your doctor about taking medicines and seeing a counselor at the same time. You are more likely to succeed when you do both. If you are or , talk with your doctor about counseling or other ways to quit smoking. Do not take medicine to help you quit smoking unless your doctor tells you to do so. To quit smoking: Quit right away Quit smoking totally, instead of slowly cutting back on how much you smoke over a period of time. Go to counseling. You are more likely to quit if you go to counseling sessions regularly. Take medicine You may take medicines to help you quit. Some medicines need a prescription, and some you can buy hktd-ibu-aprvzes. Some medicines may contain a drug called nicotine to replace the nicotine in cigarettes. Medicines may: Help you to stop having the desire to smoke (cravings). Help to stop the problems that come when you stop smoking (withdrawal symptoms). Your doctor may ask you to use: Nicotine patches, gum, or lozenges. Nicotine inhalers or sprays. Non-nicotine medicine that is taken by mouth. Find resources Find resources and other ways to help you quit smoking and remain smoke-free after you quit. These resources are most helpful when you use them often. They include: Online chats with a counselor. Phone quitlines. Printed self-help materials. Support groups or group counseling. Text messaging programs. Mobile phone apps. Use apps on your mobile phone or tablet that can help you stick to your quit plan. There are many free apps for mobile phones and tablets as well as websites. Examples include QuitGuide from the [employer] and smokefree.gov What things can I do to make it easier to quit? Talk to your family and friends. Ask them to support and encourage you. Call a phone quitline (5-828-JPZTNOW), reach out to support groups, or work with a counselor. Ask people who smoke to not smoke around you. Avoid places that make you want to smoke, such as: ?Bars. ?Parties. ?Smoke-break areas at work. Spend time with people who do not smoke. Lower the stress in your life. Stress can make you want to smoke. Try these things to help your stress: ?Getting regular exercise. ?Doing deep-breathing exercises. ?Doing yoga. ?Meditating. ?Doing a body scan. To do this, close your eyes, focus on one area of your body at a time from headto toe. Notice which parts of your body are tense. Try to relax the muscles in those areas. How will I feel when I quit smoking? Day 1 to 3 weeks Within the first 24 hours, you may start to have some problems that come from quitting tobacco. These problems are very bad 2 3 days after you quit, but they do not often last for more than 2 3 weeks. You may get these symptoms: Mood swings. Feeling restless, nervous, angry, or annoyed. Trouble concentrating. Dizziness. Strong desire for high-sugar foods and nicotine. Weight gain. Trouble pooping (constipation). Feeling like you may vomit (nausea). Coughing or a sore throat. Changes in how the medicines that you take for other issues work in your body. Depression. Trouble sleeping (insomnia). Week 3 and afterward After the first 2 3 weeks of quitting, you may start to notice more positive results, such as: Better sense of smell and taste. Less coughing and sore throat. Slower heart rate. Lower blood pressure. Clearer skin. Better breathing. Fewer sick days. Quitting smoking can be hard. Do not give up if you fail the first time. Some people need to try a few times before they succeed. Do your best to stick to your quit plan, and talk with your doctor ifyou have any questions or concerns. Summary Smoking tobacco is the leading cause of preventable . Quitting smoking can be hard, but it is one of the best things that you can do for your health. When you decide to quit smoking, make a plan to help you succeed. Quit smoking right away, not slowly over a period of time. When you start quitting, seek help from your doctor, family, or friends. This information is not intended to replace advice given to you by your health care provider. Make sure you discuss any questions you have with your health care provider. Document Released: 11/24/2009 Document Revised: 04/17/2019 Document Reviewed: 04/18/2019 [employer] Patient Education 2020 [employer]. 07/04/2021 15:44:45 Obesity, Adult, Mstq-xz-Jocq Obesity, Adult Obesity is having too much body fat. Being obese means that your weight is more than what is healthy for you. BMI is a number that explains how much body fat you have. If you have a BMI of 30 or more, you are obese. Obesity is often caused by eating or drinking more calories than your body uses. Changing your lifestyle can help you lose weight. Obesity can cause serious health problems, such as: Stroke. Coronary artery disease (CAD). Type 2 diabetes. Some types of cancer, including cancers of the colon, breast, uterus, and gallbladder. Osteoarthritis. High blood pressure (hypertension). High cholesterol. Sleep apnea. Gallbladder stones. Infertility problems. What are the causes? Eating meals each day that are high in calories, sugar, and fat. Being born with genes that may make you more likely to become obese. Having a medical condition that causes obesity. Taking certain medicines. Sitting a lot (having a sedentary lifestyle). Not getting enough sleep. Drinking a lot of drinks that have sugar in them. What increases the risk? Having a family history of obesity. Being an woman. Being a man. Living in an area with limited access to: ?Rehman, recreation centers, or sidewalks. ?Healthy food choices, such as grocery stores and [employer] markets. What are the signs or symptoms? The main sign is having too much body fat. How is this treated? Treatment for this condition often includes changing your lifestyle. Treatment may include: ?Changing your diet. This may include making a healthy meal plan. ?Exercise. This may include activity that causes your heart to beat faster (aerobic exercise) and strength training. Work with your doctor to design a program that works for you. ?Medicine to help you lose weight. This may be used if you are not able to lose 1 pound a week after 6 weeks of healthy eating and more exercise. ?Treating conditions that cause the obesity. ?Surgery. Options may include gastric banding and gastric bypass. This may be done if: ?Other treatments have not helped to improve your condition. ?You have a BMI of 40 or higher. ?You have life-threatening health problems related to obesity. Follow these instructions at home: Eating and drinking Follow advice from your doctor about what to eat and drink. Your doctor may tell you to: ?Limit fast food, sweets, and processed snack foods. ?Choose low-fat options. For example, choose low-fat milk instead of whole milk. ?Eat 5 or more servings of fruits or vegetables each day. ?Eat at home more often. This gives you more control over what you eat. ?Choose healthy foods when you eat out. ?Learn to read food labels. This will help you learn how much food is in 1 serving. ?Keep low-fat snacks available. ?Avoid drinks that have a lot of sugar in them. These include soda, fruit juice, iced tea with sugar, and flavored milk. Drink enough water to keep your pee (urine) pale yellow. Do not go on fad diets. Physical activity Exercise often, as told by your doctor. Most adults should get up to 150 minutes of moderate-intensity exercise every week.Ask your doctor: ?What types of exercise are safe for you. ?How often you should exercise. Warm up and stretch before being active. Do slow stretching after being active (cool down). Rest between times of being active. Lifestyle Work with your doctor and a food expert (dietitian) to set a weight-loss goal that is best for you. Limit your screen time. Find ways to reward yourself that do not involve food. Do not drink alcohol if: ?Your doctor tells you not to drink. ?You are , may be , or are planning to become . If you drink alcohol: ?Limit how much you use to: ?0 1 drink a day for women. ?0 2 drinks a day for men. ?Be aware of how much alcohol is in your drink. In the [place] one drink equals one 12 oz bottle of beer (355 mL), one 5 oz glass of wine (148 mL), or one 1 oz glass of hard liquor (44 mL). General instructions Keep a weight-loss journal. This can help you keep track of: ?The food that you eat. ?How much exercise you get. Take spyc-nwk-upjngno and prescription medicines only as told by your doctor. Take vitamins and supplements only as told by your doctor. Think about joining a support group. Keep all follow-up visits as told by your doctor. This is important. Contact a doctor if: You cannot meet your weight loss goal after you have changed your diet and lifestyle for 6 weeks. Get help right away if you: Are having trouble breathing. Are having thoughts of harming yourself. Summary Obesity is having too much body fat. Being obese means that your weight is more than what is healthy for you. Work with your doctor to set a weight-loss goal. Get regular exercise as told by your doctor. This information is not intended to replace advice given to you by your health care provider. Make sure you discuss any questions you have with your health care provider. Document Released: 04/21/2012 Document Revised: 10/02/2018 Document Reviewed: 10/02/2018 [employer] Patient Education 2020 [employer] Follow Up Care 06/19/2021 13:30:22 With:Amanda BARRIOS CNP Address: [address] [place] [id number]- When:Within 6 Month(s) [facility] 12-27-2021 NoteAdmission Information Patient: Lyle Flynn : 1990 Date of Admission: 02/05/2021 16:34:16 Date of Discharge: 02/06/2021 Code Status: Full Resuscitation PCP: Consult: Follow Up with Provider: With: Address: When: [facility] [address] [place] [address] [place] [address] 02/14/2021 09:45:00 Comments: Counseling Appointment with Nora Millan With: Address: When: Follow up with primary care provider Diagnoses: 1. Alcohol intoxication 2. Alcohol dependence 3. Schizo-affective type schizophrenia, chronic state 4. Tobacco dependency Hospital Course Summary: This is a 31 year old female with pertinent history of schizoaffective disorder, depression, chronic alcohol use and tobacco dependence brought in from for acute alcohol intoxication, wishing to withdraw from alcohol. Patient is admitted for acute alcohol intoxication with pending alcohol withdrawal. Following day she was no longer intoxicated, awake alert oriented x4 up and ambulating without dif ficulty answering questions appropriately. Patient requesting to be discharged. While no longer intoxicated patient had not yet started to experience withdrawal symptoms. She did report that she still intended to stop drinking. For this reason extensive counseling provided regarding dangers of alcohol withdrawal and patient was encouraged to stay however declined. As this was a voluntary admission for withdrawal management and patient no longer wanted to stay she was discharged per her request and given instructiosn to reutrn to the ED if at any point she should require any assistance with her alcoholism. She expressed understanding and was agreeable with plan and discahrged home. Discharge Time Spent with Patient: 35 Medications Medications that have not changed Other Medications gabapentin (gabapentin 800 mg oral tablet) 1 Tabs Oral (given by mouth) 3 times a day. Last Dose: lurasidone (Latuda 120 mg oral tablet) 1 Tabs Oral (given by mouth) every day. Last Dose: multivitamin (Thera oral tablet) 1 Tabs Oral (given by mouth) every day. Last Dose: venlafaxine (venlafaxine 75 mg oral capsule, extended release) 1 Capsules Oral (given by mouth) every day. Last Dose: Discharge Plan home with pcp follow-up Patient Discharge Condition stable Discharge Disposition home Objective General: Alert oriented x4, patient appears in no acute cardiorespiratory distress. Eye: No scleral icterus. HENT: Normocephalic, atraumatic. Neck: Supple, no JVD. Lungs: Clear to auscultation, no crepitations or wheeze. Heart: S1-S2 is normal. No rubs or gallops. Abdomen: Soft, non-tender, non-distended, normal bowel sounds, no masses. Extremities: No cyanosis clubbing or edema. Skin: No open sores or wounds. Neurologic: Awake, alert, and oriented X4, patient does not have any focal deficits. CN 2-12 grossly intact. Psychiatric: Calm and cooperative. Vitals & Measurements T: 36.7 ?C (Axillary) HR: 99 (Monitored) RR: 11 BP: 156/82 SpO2: 94% HT: 155 cm HT: 155 cm WT: 91.5 kg BMI: 36.09 BMI: 36.09 Additional Vitals No qualifying data available. Lab Results Labs (Last four charted values) WBC 5.6 (FEB 06) H 11.2 (FEB 05) Hgb 12.9 (FEB 06) 13.8 (FEB 05) Hct 36.6 (FEB 06) 39.4 (FEB 05) Plt 168 (FEB 06) 199 (FEB 05) Na 140 (FEB 06) 140 (FEB 05) K 3.9 (FEB 06) 3.9 (FEB 05) CO2 24 (FEB 06) 25 (FEB 05) Cl 107 (FEB 06) 105 (FEB 05) Cr 0.58 (FEB 06) 0.64 (FEB 05) BUN 13 (FEB 06) 13 (FEB 05) Mg 2.2 (FEB 05) Phos 3.2 (FEB 06) PT 10.5 (FEB 06) 10.0 (FEB 05) INR 1.0 (FEB 06) 0.9 (FEB 05) PTT 23.3 (FEB 06) 23.2 (FEB 05) Microbiology - Current Encounter No qualifying data available. Electronically signed by Deacon Arnold MD 02/06/21 15:24 [facility]12-26-2021 Note Chief Complaint Alcohol intoxication, wishing to withdraw from alcohol History of Present Illness Ms. Lyle Flynn is a 31-year-old female with past medical history of schizoaffective disorder, depression, chronic alcohol use and tobacco dependence who presents to the ED requesting alcohol detoxification. Patient denies illicit substance use but per ED documentation, patient reported history of fentanyl abuse. Upon arrival, family reported that patient has been drinking 1 to 2 quarts of 20% vodka daily for the last couple of weeks. She does report that she did a alcohol treatment program in October and November but does not recall the name of the facility. She has never been admitted [facility]. She does live in [place], [place]. At time of evaluation, there is no family present. Family did report that she attempted to withdraw from alcohol on her own and had several withdrawal seizures. She is vaccinated for COVID-19. ED staff reports that when they paced patient on the bedpan in ED, there were multiple white pills noted in the bedpan when she was finished urinating. It was determined that the patient had placed her gabapentin in a plastic bag and inserted into her vagina before coming to the hospital. Reportedly patient stated that she was worried that she was not going to be able to get her gabapentin while she was hospitalized. At this time, patient is quite intoxicated. She does answer most questions appropriately. She denies nausea or vomiting, chest or abdominal pain, dyspnea, cough, fever or chills. She does report that she attempted to stop drinking on her own and states that she had seizures at home. In the ED, sodium 140, potassium 3.9, creatinine 0.64, alk phos 79, AST 431, ALT 320, albumin 4.1, calcium 9.5, magnesium 2.2. WBC 11.2, hemoglobin 13.8, hematocrit 39.4, platelets 199. Coagulation studies within normal limits. Plasma ethanol 509. Urine toxicology negative. SARS-CoV-2 negative. Shereceived 1 L normal saline bolus and thiamine 100 mg IV piggyback. She does not have a primary care provider. Review of Systems ROS limited due to patient's current intoxicated state, see HPI. Objective Vitals & Measurements T: 36.8 ?C (Oral) HR: 125 (Monitored) RR: 19 BP: 129/92 SpO2: 96% HT: 155 cm HT: 155 cm WT: 86.7 kg(Dosing) WT: 86.7 kg BMI: 36.09 BMI: 36.09 Physical Exam General: Alert, disoriented to place, Patient appears in no acute cardiorespiratory distress. Eye: normal conjunctiva, no scleral icterus HENT: Normocephalic, dry oral mucosa Neck: Supple, non-tender, no lymphadenopathy. Lungs: Diminished to auscultation bilaterally, no crepitations or wheeze. Room air Heart: S1-S2 is normal. No rubs, murmur or gallops. Abdomen: Soft, round, non-tender, non-distended, normal bowel sounds Extremities: No cyanosis clubbing or edema Skin: no open sores or wounds Neurologic: Awake, alert, and intoxicated, patient does not have any focal deficits. Psychiatric: Calm and cooperative IV: Peripheral site Assessment/Plan Brief Hospital Course Summary: This is a 31 year old female with pertinent history of schizoaffective disorder, depression, chronic alcohol use and tobacco dependence brought in from for acute alcohol intoxication, wishing to withdraw from alcohol. Patient is admitted for acute alcohol intoxication with pending alcohol withdrawal. Assessment: Alcohol intoxication Alcohol withdrawal Schizoaffective disorder Plan: Inpatient admission to intensive care unit, hardwire monitor, continuous pulse oximetry [facility] protocol with as needed lorazepam, plasma ethanol on admission 509, will add lorazepam taper if needed Thiamine, folic acid, multivitamin daily Seizure precautions Behavioral health social work consult for discharge planning LR at 75 mils per hour Home medications reconciled VTE prophylaxis: Enoxaparin 40 mg subcu daily Check amylase, lipase, folic acid and vitamin B12 now CMP, CBC, phosphorus level, hepatic function panel, ethanol level in a.m. Medical necessity for ongoing hospitalization: Alcohol intoxication, alcohol withdrawal Complication risk: Falls, DTs, seizures Disposition Health Care Power of [employer] or next of kin: Manisha Flynn, Family Updated: In ED Activity at baseline: Independent with ADLs, ambulatory Anticipated Discharge Location: Home versus inpatient rehabilitation Anticipated Discharge Date: 2 to 3 days Code Status: Full Resuscitation Problem List/Past Medical History Ongoing Accidental fentanyl overdose Depression Hypertension Schizo-affective psychosis Procedure/Surgical History Denies surgical history Medications Inpatient acetaminophen, 650 mg, Oral, q6hr, PRN acetaminophen, 650 mg, Oral, q6hr, PRN enoxaparin, 40 mg= 0.4 mL, Subcutaneous, Daily folic acid, 1 mg, Oral, Daily Lactated Ringers Injection intravenous solution 1,000 mL, 1000 mL, IV Latuda, 120 mg, Oral, Daily LORazepam, 2 mg= 1 mL, IV Push, q15min, [place] (more content not included)... [facility] G[facility]am arte[facility] June 10, 2022 7:53am Note Date/Time June 10, 2022 7:5 2am [facility] [address] [place] [address] Discharge Summary Signed Patient: Lyle Flynn MR#: [id number] : 1990 Acct:[id number] Age/Sex: 32 / F Adm Date: 3 Loc: Room: [address] [place] [address]: Nguyễn Burrows MD Copies to: MD Amanda Escamilla APRN, [employer]~ Providers Date of Discharge: 06/10/22 Discharging Provider: Nguyễn Burrows Primary Care Provider: Amanda Barrios Consults: 06/07/22 17:43 Consult to Case Management Routine Consult to Sleep Lab Routine Discharge Diagnosis (1) Anxiety: (2) Hep C w/o coma, chronic: (3) Depression: Final Diagnosis Final Discharge Diagnosis: MDD Anxiety Summary Hospital Course Hospital course: Ms. Flynn is a 32 year old female with reported history of depression, anxiety and opiate use disorder who presents for inpatient admission due to worsening ofdepression and feeling suicidal.? Reportedly, she presented to the? ED with a complaint of having been found walking around the budget and naked.? The patienthas been drinking states that she was drinking last night states that she woke up took half a shot.? Patient arrives here states that she had a fall and statesthat she is having some right the posterior aspect rib pain.? At the time of the interview, she presented as depressed.? For at least two weeks,? the patient complains of? depressed mood most of the day every day, decreased interest in activities normally enjoyed, low energy and fatigue throughout the day even when sleeping adequately, feelings of worthlessness, guilt for no reason, and poor focus and concentration in routine activities.? She rates her depression and anxiety are at 10/10. Patient denies AH/VH. Patientstates she has suicidal thoughts and felt it safer to be hospitalized.? She reports receiving methadone from the methadone clinic.? I discussed with her that we will wait for document verification from her methadone clinic prior to restarting. Patient denies homicidal thoughts or plans. Patient states she drinks a gallon of vodka a day.? She denies symptoms suggestive of evita, psychosis or agitation.? She reports using methamphetamine and her UDS was positive for amphetamine.? Past psychiatric history is relevant for previous suicide attempts by overdose and previous psychiatric hospitalizations. The course of treatment: The patient was familiar with the mental health therapy services available whileon the unit and was encouraged to participate. Patient presented initially as depressed and felt her medication regimen needs to be updated. Methadone was continued after obtaining verification from her outpatient provider. Psychotropic medications targeting mood and anxiety were started and she was provided supportive and reality oriented therapy. She was started on Lexapro tohelp with depression and anxiety. She was also intiated on CIWA with Ativan for alcohol withdrawal. She felt that her symptoms have improved on the current medication regimen, and has been compliant with treatment, and reported no side effects. Her sleep and appetite were okay. She has been attending groups and described them as useful building coping skills. The patient has denied any access to firearms or lethal weapons. She was offered rehab but preferred the outpatient follow up route. She felt better than before coming to the hospital and feels hopeful regarding her future. She understands the importance of outpatient follow-up to ensure the stability of her symptoms. She denied suicidal or homicidal ideation and verbalized the intent to notify the staff if she has such thoughts. No suicidal or self-injurious behaviors occurred during inpatient treatment. The patient described that her depressive feelings have been relieved, and she has a better understanding of how to cope with stress due to her inpatient admission. She was given emotional support, counseled, and educated regarding the prognosis of her diagnosis. She expresses understanding and says she is better after learning coping skills and the medications prescribed in the inpatient unit. She was in a good place to return home and engage fully in her life Patient stated that she is able to keep her positive thoughts. The patient stated that she was ready to go. She did not meet criteria for involuntary psychiatric hospitalization. Patient achieved maximum benefit from attending inpatient treatment and was suitable for outpatient follow up. I explained to the patient that her discharge from the hospital does not mean that her medicalcare ends here. She needs consistent outpatient follow-up, cognitive behavioral therapy, and treatment plan to be handled from this point on by out patient team. Discharge disposition: Home with BF. Coordinated via case management. Safe discharge Planning: With the cessation of all suicidal ideation, improvements in mood, and absence of any psychotic symptoms at the time of discharge, aftercare plans were solidified. She was able to formulate a believable Safety Plan. Discharge plans were discussed with the patient, her BF, and the treatment team. All agreed with the discharge plan. On the day of discharge, she was evaluated and had no complaints. She denied any SI/HI. She agreed to follow up with outpatient treatment as arranged by case management. She had no complications during her stay. Suicide risk assessment: A thorough review of risk and protective factors was conducted. Discussed with the patient the following recommendations that would help reduce suicide which includes limiting the number of medications to a 15-day supply with one refill at the time of discharge to avoid potential overdose,consistent outpatient follow up preferably within seven days of release, involving family members in her care, and her desire to live. We also discussed availability of outpatient DBT groups which can be lifesaving. She reports good therapeutic alliance, good response to medication management and therapy, availability of local mental health services and willingness to follow up, lack of suicidal ideation, intent or plan, lack of impulsivity, agitation, or psychotic behavior. Pt is future- oriented and understands the importance of outpatient follow-up. Most psychiatric experts agree that predicting suicide is not an option but considering positive factors like family and andrea, lack of access to firearms, and desire to continue treatment makes her current suicide risk minimal. Given the chronicity of suicidality, we discussed measures to help her with long-term safety. The patient is not suicidal or psychotic now. To help decreaseher suicide risk, as best I can, I am referring her for outpatient treatment andCBT for long-term follow-up to have somewhere to go and someone to manage her assymptoms and stressors develop. This is the best way to keep her alive. So, we discussed a crisis plan for future suicidality: at the first sign of distress, she will call the hotline; if this is not sufficient, she will 911, then call family members or friends; ultimately, she will come to the ER. Safety: The patient is not acutely psychotic and is safe to continue treatment on an outpatient basis. The patient was made aware of the 03/09 emergency services of the crisis center. She was advised to call 911 or go to the nearest ER in case of a crisis ( (including having thoughts of harming herself or others). Risks (metabolic, EPS, the effect on heart), benefits, and alternatives for medications were discussed. She verbalized understanding. Her consent was obtained. She was advised not to drink alcohol while taking medications. I advised patientthat using drugs can increase risk of impulsiveness and making poor decisions. Continue supportive therapy with some CBT techniques. Psycho-education and compliance counseling were provided. She denies current and is aware to notify her psychiatrist if she becomes due to the risk of harm to the fetus. MSE: Orientation: Alert and oriented to person, place, and time. Appearance/Behavior: Fair grooming and hygiene, calm, cooperative, engaged in the interview. Good eye contact. Normal psychomotor activity. Speech: normal rate, rhythm, volume, and tone. Non pressured. Knowledge: Appropriate for age and level of education Mood: okay Affect: reactive, mood-congruent Thought process: linear, logical, and goal-oriented Thought content: No SI/HI. No AVH. No delusions. Does not appear to be responding to internal stimuli. Concentration: Grossly intact based on track during the interview Associations: No loosening of associations Memory: Able to recall recent and remote historical information Insight: Fair, able to appreciate current symptoms and need for outpatient treatment Judgment: fair, agreed to follow treatment recommendations, socially appropriate with interviewer and staff. Time spent discussing smoking cessation with patient: more than 10 minutes Condition Condition at Discharge: Fair Status at Discharge Functional status at discharge: independent ambulation Time Spent with Patient Time spent providing/coordinating discharge services (# min): 80 Exam Physical Exam Vital Signs: Temp Pulse Resp BP Pulse Ox O2 Del Method 97.5 F L 78 18 132/92 97 Room Air 06/10/22 07:30 06/10/22 07:30 06/10/22 07:30 06/10/22 07:30 06/10/22 07:30 06/10/22 07:30 Discharge Plan Discharge Plan Activity: No Activity Restriction Diet: Regular Prescriptions: New escitalopram oxalate 5 mg Tablet 5 mg PO DAILY 15 Days Qty: 15 1RF Continued gabapentin 800 mg Tablet 800 mg PO TID methadone 10 mg Tablet 115 mg PO DAILY clonidine HCl 0.1 mg tablet 0.1 mg PO DAILY Patient Comments: take 1 tablet by mouth once daily Follow Up: [facility] [Outside] [facility] [Outside] Aamnda Barrios APRN, [employer] [Primary Care Provider] - (Please schedule an appt with your primary provider for any medical needs. ) Documented By: Gautam Burrows MD 3 [id number] Signed By: <Electronically signed by Gautam Burrows MD> 06/10/22 0753 [facility] Work Phone: Evaluation + Plan note Future Appointments Appointment Date:12/27/2021 03:00:00 PM Scheduled Provider:Amanda BARRIOS CNP Location:[facility] Appointment Type:[facility] Evaluation + Plan note Future Appointments Appointment Date:12/27/2021 03:00:00 PM Scheduled Provider:Amanda BARRIOS CNP Location:[facility] Appointment Type:[facility] Diagnostic Tests Pending * CBC w/ Auto Diff 07/04/21 * TSH With T4fr [facility]ments Appointment Date:04/26/2022 01:40:00 PM Scheduled Provider:Amanda BARRIOS CNP Location:[facility] Appointment Type:[facility] Evaluation + Plan note Future Appointments Appointment Date:10/17/2022 09:20:00 AM Scheduled Provider:Amanda BARRIOS CNP Location:[facility] Appointment Type: Open [facility] [place] Evaluation + Plan note Future Appointments Appointment Date:10/17/2022 09:20:00 AM Scheduled Provider:Amanda BARRIOS CNP Location:[facility] Appointment Type: Open Diagnostic Tests Pending * Throat [facility] Diagnosis Alcohol withdrawal syndrome with complication (HCC)- Primary documented in this encounter [facility] Work Phone: evalzhynix note* Diagnosis Temporary high blood pressure- Primary Elevated blood pressure reading without diagnosis of hypertension documented in this encounter [facility] Work Phone: evaluation noteNo assessment information available [facility] Work Phone: evaluation note* Diagnosis Acute alcoholic intoxication with complication (HCC)- Primary documented in this encounter [id number] Work Phone: evalpcpckr note* Diagnosis Encounter for psychological evaluation- Primary documented in this encounter [employer] Phone: evaluation note* Diagnosis Onset Date Resolution Status Alcohol abuse acute Altered mental status acute Suicidal ideation acute [facility] Work Phone: Evaluation note* Diagnosis Onset Date Resolution Status Alcohol abuse acute Altered mental status acute Anxiety acute Depression acute Hep C w/o coma, chronic acut e Suicidal ideation acute [facility] Work Phone: Evaluation note* Diagnosis Alcohol withdrawal syndrome with complication (CMS/HCC)- Primary Bipolar affective disorder, currently manic, moderate (CMS/HCC) Bipolar I disorder, most recent episode (or current) manic, moderate documented in this encounter [facility] Work Phone: History and physical note Author Gautam arteaga [facility] June 08, 2022 9:58am Note Date/Time June 08, 2022 9:5 6am [facility] [address] [place] [address] Psychiatry H&P Signed Patient: Lyle Flynn MR#: [id number] : 1990 Acct:[id number] Age/Sex: 32 / F Adm Date: 3 Loc: 1S Room: 6X0898-6 Type: ADM IN Attending Dr: Nguyễn Burrows MD Copies to: MD Amanda Escamilla APRN, [employer]~ Date of Service: 06/08/2022 HPI History of Present Illness History of present illness: Ms. Flynn is a 32 year old female with reported history of depression, anxiety and opiate use disorder who presents for inpatient admission due to worsening ofdepression and feeling suicidal. Reportedly, she presented to the ED with a complaint of having been found walking around the budget and naked.? The patienthas been drinking states that she was drinking last night states that she woke up took half a shot.? Patient arrives here states that she had a fall and statesthat she is having some right the posterior aspect rib pain.? At the time of the interview, she presented as depressed. For at least two weeks, the patient complains of depressed mood most of the day every day, decreased interest in activities normally enjoyed, low energy and fatigue throughout the day even when sleeping adequately, feelings of worthlessness, guilt for no reason, and poor focus and concentration in routine activities. She rates her depression and anxiety are at 10/10. Patient denies AH/VH. Patientstates she has suicidal thoughts and felt it safer to be hospitalized. She reports receiving methadone from the methadone clinic. I discussed with her that we will wait for document verification from her methadone clinic prior to restarting. Patient denies homicidal thoughts or plans. Patient states she drinks a gallon of vodka a day. She denies symptoms suggestive of evita, psychosis or agitation. She reports using methamphetamine and her UDS was positive for amphetamine. Past psychiatric history is relevant for previous suicide attempts by overdose and previous psychiatric hospitalizations. Mental Status: mental status grossly normal Mood: depressed mood Affect: constricted affect Speech and Movement: speech and movement normal and speech clear Attitude: cooperative Thought Process: normal Thought Content: Denied hallucinations, no homicidality and positive suicidality Insight: limited Judgment: limited Review of Systems Constitutional: Pt denies fatigue, malaise. Neuro: Denies dizziness/lightheadedness. Denies TBI, seizure, memory loss. Denies numbness/tingling in extremities HEENT: Denies vision/hearing changes. Pulmonary: Denies SOB, dyspnea, cough, wheezing. Cardiac: Denies chest pain/pressure. Denies edema, palpitations. GI: Denies abdominal pain, heartburn, N/V. Denies constipation and diarrhea : Denies dysuria, hematuria, polyuria. Physical exam General: not in any acute distress Skin: intact HEENT: head atraumatic, face symmetrical. Pulm: Breathing normally without excessive effort Cardio: Regular rate and rhythm Abdomen: Normal inspection Musculoskeletal: Moves all extremities, normal strength all extremities. Neuro: Pt alert, oriented x3. Gait normal. CNI: Intact, no concerns reported CNII: Visual tejeda intact CNIII,IV,: EOM intact, no nystagmus. CNV: Sensation intact to light touch. CNVII: Raises eyebrows, smile/frown, puff out cheeks symmetrically. CNVIII: Hearing intact bilaterally. CNIX,X: Voice normal, soft palate elevation normal, symmetrical. CNXI: Shoulder shrug strong, equal bilaterally. CNXII: Tongue protrusion midline PMFSH Vaccinated for COVID-19?: Unknown Medical History Accidental heroin overdose Anxiety Blood plasma poisoning Depression ETOH abuse HTN (hypertension) Restless legs syndrome (RLS) Tobacco abuse Surgical History H/O LEEP Hx of appendectomy Family History Mother Depression Family/Other Depression Father Depression Social History Smoking Status: Current every day smoker Tobacco Type: cigarettes Substance Use Type: Alcohol Substance Abuse Comment: on Methadone, drinks 1 gallon of vodka a day. Social History Comments: lives with boyfriend and has 1 son. Pt recently here [id number] Meds Medications and Allergies Allergies codeine Allergy (Verified 04/11/22 08:33) Hives quetiapine [From Seroquel] Adverse Reaction (Verified 04/11/22 08:33) Swelling Home Medications gabapentin 800 mg tablet 800 mg PO TID 08/28/21 [History Confirmed 06/07/22] methadone 10 mg tablet 115 mg PO DAILY 03/05/22 [History Confirmed 06/08/22] clonidine HCl 0.1 mg tablet 0.1 mg PO DAILY 06/07/22 [History Confirmed 06/07/22] Exam Physical Exam Vital Signs: Temp Pulse Resp BP Pulse Ox O2 Del Method 97.9 F 66 16 120/77 95 Room Air 06/08/22 07:32 06/08/22 07:32 06/08/22 07:32 06/08/22 07:32 06/08/22 07:32 06/08/22 08:31 Results Labs 06/07/22 09:20 06/07/22 09:20 Psychiatry Labs: 06/07/22 06/07/22 06/07/22 09:20 09:20 10:01 RBC 4.44 Hgb 13.6 Hct 40.7 MCV 91.7 MCH 30.6 MCHC 33.4 RDW 13.5 Plt Count 142 L MPV 8.5 Sodium 140 Potassium 3.7 Chloride 105 Carbon Dioxide 23.1 Anion Gap 15.6 H BUN 18 Creatinine 0.84 Calcium 9.2 Total Bilirubin 0.9 AST 122 H ALT 109 H Alkaline Phosphatase 87 Total Protein 7.6 Albumin 4.1 Urine Color Dark yellow A Urine Appearance Clear Urine pH 5.5 Ur Specific [place] 1.032 H Urine Protein 30 H Urine Glucose (UA) Normal Urine Ketones 2+ H Urine Occult Blood Negative Urine Nitrite Negative Ur Leukocyte Esterase Negative Urine RBC 3-4 Urine WBC 0-1 Abnormal Involuntary Movement Dental Status Are dentures usually worn?: No Assessment/Plan (1) Anxiety: Plan: Admit to 1S for management of depression and to ensure safety of self due to SI. Start Lexapro 5 mg p.o. daily. Monitor suicidal behaviors for safety of self (15-minute face check). Recommend attending groups and psychoeducation for building coping skills. Risks, benefits and indications of medications were discussed with the patient. The patient verbalized understanding. No abnormal movements noted on exam. AIMS is Zero. Code(s): F41.9 - Anxiety disorder, unspecified Status: Acute (2) Hep C w/o coma, chronic: Code(s): B18.2 - Chronic viral hepatitis C Status: Acute (3) Depression: Code(s): F32.9 - Major depressive disorder, single episode, unspecified Status: Acute Documented By: Gautam Burrows MD 3 [id number] Signed By: <Electronically signed by Gautam Burrows MD> 06/08/22 0958 [facility] Work Phone: History general Narrative - Reported* Type Description Date Medical History HX OF HEROIN ABUSE Medical History manic depression Medical History bipolar Medical History anxiety Surgical History No know Surgical history Hospitalization History CHILD X'S 1 [facility] Other Hospital course Narrative No data available for this section [facility] Hospital Discharge instructions* Instructions* Fredy Kay, - 05/03/2021 Call today or tomorrow for a follow up with [facility] for alcohol detoxification or follow up with No primary care provider on file.. Stop drinking alcohol. Call [facility] [phone] or go to [facility] at 7am Saturday - Saturday to be evaluated (this is first come first serve) Return to the Emergency Department for worsening of pain, fever > 101.5, excessive nausea or vomiting, vomiting any blood, blood in your stool, or any other care or concern. * Attachments The following attachments cannot be sent through Care Everywhere. * Alcohol Detoxification and Withdrawal ([place]) [facility] Discharge instructions No data available for this section [facility] Additional Instructions Follow-up with outpatient detox [facility] are [facility] Work Phone: Hospital Discharge instructions Additional Instructions Follow-up with mental health Return to the ED if you develop worsening symptoms or concernsC[facility] Work Phone: Hospital Discharge instructions* Attachments The following attachments cannot be sent through Care Everywhere. * Alcohol Intoxication: Acute ([place]vor[place]) [facility] Discharge instructions Additional Instructions Follow-up with your primary care doctor Return to ED if develop worsening symptoms or [facility] Work Phone: Hospital Discharge instructions Additional Instructions Do not use drugs or alcoholC[facility] Work Phone: Hospital Discharge instructions Additional Instructions If your symptoms return/worsen or you develop any further concerns or symptoms please see your doctor or return to the emergency department immediately.[facility] Work Phone: Hospital Discharge instructions Additional Instructions Regular Diet No Activity RestrictionsReg[facility] Work Phone: Hospital Discharge instructions Additional Instructions Follow-up with your primary care doctor Return to ED for develop worsening symptoms or concernsC[facility] Work Phone: Progress note No data available for this section [facility] Author Gautam arteaga [facility] June 09, 2022 7:51am Note Date/Time June 09, 2022 7:5 1am [facility] [address] [place] [address] Psychiatry Progress Note Signed Patient: Lyle Flynn MR#: [id number] : 1990 Acct:[id number] Age/Sex: 32 / F Adm Date: 3 Loc: Room: [address] [place] [address] Type : ADM IN Attending Dr: Nguyễn Burrows MD Copies to: ~ Date of Service: 06/09/2022 Subjective Subjective Narrative: Ms. Flynn patient report she is feeling better. Depression and anxiety are stabilizing gradually on the current medication regimen. She denied any withdrawal symptoms and is not presenting with any tremors on exam. Anxiety is moderate in intensity with attempted utilization of coping skills. She denies SI/HI and verbalized the intent to notify staff if she has such thoughts. She continues to be compliant with prescribed medications and is visible within the unit milieu. She reported following up with her previous outpatient psychiatrist who recommended Vraylar. She inquired if she needs to restarted and I told her she may consider it as an outpatient as we just started Lexapro. We want to give the current medication more time to work. We have agreed to continue the current medications regimen. Risks, benefits, andindications of medications were discussed. Appearance: dressed casually Mental Status: mental status grossly normal Mood: Euthymic mood Affect: Normal affect Speech and Movement: speech and movement normal and speech clear Attitude: cooperative Thought Process: normal Thought Content: Denied hallucinations, no homicidality and no suicidality Insight: fair Judgment: fair Impulse control: fair Exam Physical Exam Vital Signs: Temp Pulse Resp BP Pulse Ox O2 Del Method 97.5 F L 60 16 123/75 98 Room Air 06/09/22 04:00 06/09/22 04:00 06/09/22 04:00 06/09/22 04:00 06/09/22 04:00 06/09/22 04:00 Abnormal Involuntary Movement Dental Status Are dentures usually worn?: No Assessment/Plan Assessment/Plan (1) Anxiety: Plan: Patient reports her anxiety is moderate and denied SI/HI. She denied any current symptoms of alcohol withdrawal. Monitor suicidal behaviors for safety of self (15-minute face check). Recommend attending groups and psychoeducation for building coping skills. Risks, benefits and indications of medications were discussed with the patient. The patient verbalized understanding. No abnormal movements noted on exam. AIMS is Zero. Code(s): F41.9 - Anxiety disorder, unspecified Status: Acute (2) Hep C w/o coma, chronic: Code(s): B18.2 - Chronic viral hepatitis C Status: Acute (3) Depression: Code(s): F32.9 - Major depressive disorder, single episode, unspecified Status: Acute Documented By: Gautam Burrows MD 3 0749 Signed By: <Electronically signed by Gautam Burrows MD> 06/09/22 0751 [facility] Work Phone: Reason for referral (narrative) Referred by: Amanda BARRIOS CNP-[facility] [place] Summary Purpose Family History Grandmother Name Dates Details Family history of cerebrovas cular accident (CVA)(V17.1, Z82.3) Status:Active Mother Name Dates Details Family history of Anxiety an d depression(300.00, F41.9) Status:Active Father Name Dates Details Family history of hypertensi on(V17.49, Z82.49) Status:Active Grandmother Name Dates Details Family history of cerebrovas cular accident (CVA)(V17.1, Z82.3) Status:Active Mother Name Dates Details Family history of Anxiety an d depression(300.00, F41.9) Status:Active Father Name Dates Details Family history of hypertensi on(V17.49, Z82.49) Status:Active Grandmother Name Dates Details Family history of cerebrovas cular accident (CVA)(V17.1, Z82.3) Status:Active Mother Name Dates Details Family history of Anxiety an d depression(300.00, F41.9) Status:Active Father Name Dates Details Family history of hypertensi on(V17.49, Z82.49) Status:Active Grandmother Name Dates Details Family history of cerebrovas cular accident (CVA)(V17.1, Z82.3) Status:Active Mother Name Dates Details Family history of Anxiety an d depression(300.00, F41.9) Status:Active Father Name Dates Details Family history of hypertensi on(V17.49, Z82.49) Status:Active Unknown Family Member Name Dates Details Anxiety and depression: Moth er Status:Active Family history of hypertensi on: Father(V17.49, Z82.49) Status:Active Family history of cerebrovas cular accident (CVA): Maternal Grandmother(V17.1, Z82.3) Status:Active Relationship Condition Age at Onset Recorded Date/T kenia Not Specified Depression Unknown family member Depression Unknown father Depression Unknown Advance Directives Documents on File Type Date Recorded Patient Visual Merchandising Assistant Expl anation Advance Directives and Living Will Power of Drift Miner Documents on File Type Date Recorded Patient Visual Merchandising Assistant Expl anation ACP-Advance Directive ACP-Power of Drift Miner Advance Directive Response Recorded Date/ Time Advance Directives No December 10:11am Advance Directive Response Recorded Date/ Time Advance Directives No December 11:11am Discharge Instructions * Instructions* Mundo Guzman MD - 11/01/2018 Venous Doppler is scheduled for Saturday. Go to scheduled appointment. Take Xarelto as prescribed. * Attachments The following attachments cannot be sent through Care Everywhere. * DVT (Deep Vein Thrombosis) (Ivorian) documented in this encounter* Attachments The following attachments cannot be sent through Care Everywhere. * Panic Attacks (Ivorian) documented in this encounter* Instructions* Crescencio Emanuel MD - 03/11/2020 MEDICATIONS PRESCRIBED. RETURN FOR NEW OR WORSENING SYMPTOMS, THOUGHTS OR WANTING TO HURT SELF/ OTHERS. * Attachments The following attachments cannot be sent through Care Everywhere. * Anxiety Disorder (Ivorian) documented in this encounter* Attachments The following attachments cannot be sent through Care Everywhere. * Anxiety Disorder (Ivorian) documented in this encounter Assessments Diagnosis Pain of left upper arm- Primary Pain in limb Elevated d-dimer Abnormal coagulation profile Diagnosis Anxiety attack- Primary Panic disorder without agoraphobia Diagnosis Anxiety state- Primary Anxiety state, unspecified Diagnosis Anxiety state- Primary Anxiety state, unspecified Alcohol abuse Alcohol abuse, unspecified Chief Complaint and Reason for Visit Chief Complaint alcohol withdrawl Chief Complaint alcohol withdrawl meth withdrawl Chief Complaint alcohol withdrawl meth withdrawl AMS Anxiety Chief Complaint alcohol withdrawl meth withdrawl AMS Anxiety Arm pain Chief Complaint alcohol withdrawl meth withdrawl AMS Anxiety Arm pain dog bite right hand Chief Complaint alcohol withdrawl meth withdrawl AMS Anxiety Arm pain dog bite right hand dog bite, R hand injury Chief Complaint alcohol withdrawl meth withdrawl AMS Anxiety Arm pain dog bite right hand dog bite, R hand injury Overdose Chief Complaint alcohol withdrawl meth withdrawl AMS Anxiety Arm pain dog bite right hand dog bite, R hand injury Overdose sob Chief Complaint alcohol withdrawl meth withdrawl AMS Anxiety Arm pain dog bite right hand dog bite, R hand injury Overdose sob B19.20 Chief Complaint Arm pain dog bite right hand dog bite, R hand injury Overdose sob B19.20 ETOH Reason for Visit Alcohol abuse Altered mental status Suicidal ideation Chief Complaint Arm pain dog bite right hand dog bite, R hand injury Overdose sob B19.20 ETOH Reason for Visit Alcohol abuse Altered mental status Anxiety Depression Hep C w/o coma, chronic Suicidal ideation Chief Complaint ETOH hands numb currently detoxing Reason for Visit Alcohol abuse Altered mental status Anxiety Depression Hep C w/o coma, chronic Suicidal ideation Chief Complaint hands numb currently detoxing Hepatitis C Chief Complaint Hepatitis C etoh Chief Complaint Hepatitis C etoh need meds refill Chief Complaint etoh need meds refill alcohol withdrawal Chief Complaint etoh need meds refill alcohol withdrawal heart racing/ throat swollen Chief Complaint etoh need meds refill alcohol withdrawal heart racing/ throat swollen cp- out of meds Additional Source Comments INFORMATION SOURCE (unrecogn ized section and content) DATE CREATED AUTHOR 07/04/2018 [facility] DATE CREATED AUTHOR AUTHOR'S ORGANIZ ATION 11/14/2018 [facility] DATE CREATED AUTHOR AUTHOR'S ORGANIZ ATION 03/12/2020 [facility] DATE CREATED AUTHOR AUTHOR'S ORGANIZ ATION 06/04/2020 [facility] DATE CREATED AUTHOR AUTHOR'S ORGANIZ ATION 09/28/2020 [facility] DATE CREATED AUTHOR AUTHOR'S ORGANIZ ATION 10/12/2020 [facility] DATE CREATED AUTHOR AUTHOR'S ORGANIZ ATION 10/19/2020 [facility] DATE CREATED AUTHOR AUTHOR'S ORGANIZ ATION 02/09/2021 [facility] DATE CREATED AUTHOR AUTHOR'S ORGANIZ ATION 05/04/2021 [facility] DATE CREATED AUTHOR AUTHOR'S ORGANIZ ATION 05/04/2021 [facility] DATE CREATED AUTHOR AUTHOR'S ORGANIZ ATION 06/02/2021 [facility] DATE CREATED AUTHOR AUTHOR'S ORGANIZ ATION 07/31/2021 [facility] DATE CREATED AUTHOR AUTHOR'S ORGANIZ ATION 03/13/2022 [facility] DATE CREATED AUTHOR AUTHOR'S ORGANIZ ATION 03/15/2022 [facility] DATE CREATED AUTHOR AUTHOR'S ORGANIZ ATION 01/17/2023 [facility] DATE CREATED AUTHOR AUTHOR'S ORGANIZ ATION 02/02/2023 [facility] DATE CREATED AUTHOR AUTHOR'S ORGANIZ ATION 02/09/2023 [facility] Reason for Visit (unrecogniz ed section and content) Reason Comments Other Lump under left uppe r arm, no redness, bruising or break in skin intact Reason Comments Panic Attack pt was at work and s tarted to have a panic attack Reason Comments Panic Attack Pt reporting she has been uncontroled anxiety due to relationship break up. Status Reason Specialty Diagnoses / Procedures Referre d By Contact Referred To Contact [facility] [address] [phone] [facility] Reason Comments Anxiety Pt states that she's been drinking continuously for the past 3 weeks, states anxiety/panic attacks today; Has a hx of IV drug abuse as well; Reason Comments Withdrawal Alcohol Reason Comments Hypertension at [facility]. blood pressure checked today and was 146/100 Reason Comments Addiction Problem Reason Comments Panic Attack Reason Comments Psychiatric Evaluation Pt is from [facility] and is going through alcohol withdrawal, pt states she has been seeing people who are not there. Pt is also having some anxiety. Pt states she's had seizures before when she goes through [facility] Ordered Prescriptions (unrec ognized section and content) Prescription Sig Dispensed Refills Start Date End Da te sertraline (ZOLOFT) 50 MG tablet Take 1 tablet by mouth daily 30 tablet 0 03/10/2020 <item> Privacy Markings (unrecogniz ed section and content) Section Author: Yenifer Patel PROHIBITION ON REDISCLOSURE OF CONFIDENTIAL INFORMATION This notice accompanies a disclosure of information concerning a client made to you with the consent of such client. Scheduled Active and Recently Administ ered Medications (unrecognized section and content) Medication Order 05/01/2021 05/02/2021 05/03/2021 hydrOXYzine (VISTARIL) injection 50 mg (COMPLETED) 50 mg, IntraMUSCular, ONCE, 1 dose, On Sat05/03/21 at 9807 1342 (Given - Provid er: Macrina Cerda RN) LORazepam (ATIVAN) injection 1 mg (COMPLETED) 1 mg, IntraVENous, ONCE, 1 dose, On Sat05/02/21 at 3000 3181 (Given - Provider: Macrina Cerda RN) LORazepam (ATIVAN) injection 1 mg (COMPLETED) 1 mg, IntraVENous, ONCE, 1 dose, On Sat05/02/21 at 2345 2343 (Given - Provider: Macrina Cerda RN) PRN Medication Order 05/01/2021 05/02/2021 05/03/2021 iopamidol (ISOVUE-370) 76 % injection 75 mL (COMPLETED) 75 mL, IntraVENous, IMG ONCE PRN, 1 dose, Starting on Sat05/03/21 at 0312, Until Discontinued, Other 0336 (Given - Provid er: Michelle Godoy - Comment: [id number] 10/04) No Frequency Medication Order 05/01/2021 05/02/2021 05/03/2021 diphenhydrAMINE (BENADRYL) 25 MG tablet 1 dose, Starting on Sat05/03/21 at 0128, Until Sat05/03/21 at 1329, Macrina Cerda: cabinet override, Macrina Cerda: cabinet override 0130 (Due) Scheduled Medication Order 05/01/2021 05/02/2021 05/03/2021 LORazepam (ATIVAN) tablet 1 mg (COMPLETED) 1 mg, Oral, ONCE, 1 dose, On Sat05/03/21 at 0945 0952 (Given - Provid er: Ilda Modi RN) Scheduled Medication Order 12/14/2022 12/15/2022 12/16/2022 cariprazine (Vraylar) capsule 1.5 mg 1.5 mg, oral, Every 24 hours, First dose on 12/15/22 at 2120 2207 (Given - Provider: Katy Chatterjee RN) 212 (Given - Provider: Moni Montoya RN) fluconazole (Diflucan) tablet 150 mg (COMPLETED) 150 mg, oral, Once, On 12/16/22 at 1410, For 1 dose, Coverage: Fungal NOS, Coverage: unknown, Infection Site: Vaginal 1425 (Given - Provid er: Franchesca Calhoun RN) folic acid (Folvite) tablet 1 mg 1 mg, oral, Daily, First dose on 12/15/22 at 0900 0900 (Not Given - Provider: Franchesca Calhoun RN - Reason: Patient/family refused) 0803 (Given - Provider: Franchesca Calhoun RN) gabapentin (Neurontin) capsule 800 mg 800 mg, oral, Every 8 hours scheduled, First dose on 12/16/22 at 0720, Capsules may be opened and sprinkled on food (eg, applesauce, orange juice, pudding 0802 (Given - Provid er: Franchesca Calhoun RN)1425 (Given - Provider: Franchesca Calhoun RN)212 (Given - Provider: Moni Montoya, LILY) haloperidol lactate (Haldol) injection 5 mg (COMPLETED) 5 mg, intramuscular, Once, On 12/15/22 at 0745, For 1 dose, Patients receiving IV haloperidol should be on continuous cardiac monitoring. 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 Please call before dose is needed. 0803 (Given - Provid er: Franchesca Calhoun RN) multivitamin with minerals 1 tablet 1 tablet, oral, Daily, First dose on 12/15/22 at 0900 0900 (Not Given - Provider: Franchesca Calhoun RN - Reason: Patient/family refused) 0803 (Given - Provider: Franchesca Calhoun RN) PHENobarbital (Luminal) injection 260 mg (COMPLETED) 260 mg, intravenous, Once, On 12/15/22 at 0220, For 1 dose, Administer at a rate of 50 to 100 mg/min. 0245 (Given - Provider: Jacob Ruano RN) PHENobarbital (Luminal) injection 260 mg (COMPLETED) 260 mg, intramuscular, Once, On 12/15/22 at 0745, For 1 dose, Administer at a rate of 50 to 100 mg/min. 0757 (Given - Provider: Franchesca Calhoun RN) PRN Medication Order 12/14/2022 12/15/2022 12/16/2022 LORazepam (Ativan) injection 0.5 mg(Linked Group 1) 0.5 mg, intravenous, Administer over 5 Minutes, Every 2 hour PRN, CIWA score 6-7 or HR greater than 100, Starting on Sat12/14/22 at 2137, Maximum rate of 2 mg/min. 2208 (See Alternative - Provider: Jacob Ruano RN) 0040 (See Alternative - Provider: Jacob Ruano RN)041 (See Alternative - Provider: Eleonora Jaquez RN)0615 (See Alternative - Provider: Jacob Ruano RN) LORazepam (Ativan) injection 1 mg(Linked Group 1) 1 mg, intravenous, Administer over 5 Minutes, Every 2 hour PRN, CIWA score 8-9, Starting on Sat12/14/22 at 2137, Maximum rate of 2 mg/min. 2208 (Given - Provider: Jacob Ruano RN - Comment: BALDOMERO 8) 0040 (See Alternative - Provider: Jacob Ruano RN)041 (See Alternative - Provider: Eleonora Jaquez RN)0615 (See Alternative - Provider: Jacob Ruano RN) LORazepam (Ativan) injection 2 mg(Linked Group 1) 2 mg, intravenous, Administer over 5 Minutes, Every 2 hour PRN, CIWA score greater than 9, Starting on Sat12/14/22 at 2137, Maximum rate of 2 mg/min. 2208 (See Alternative - Provider: Jacob Ruano RN) 0040 (Given - Provider: Jacob Ruano RN - Comment: CIWA 21)041 (Given - Provider: Eleonora Jaquez RN)0615 (Given - Provider: Jacob Ruano RN - Comment: CIWA 13) melatonin tablet 3 mg 3 mg, oral, Nightly PRN, sleep, Starting on 12/15/22 at 2237 2300 (Given - Provider: Bharati Barba RN) No Frequency Medication Order 12/14/2022 12/15/2022 12/16/2022 nicotine (Nicoderm CQ) patch - Omnicell Override Pull (COMPLETED) Starting on 12/16/22 at 0711, For 1 dose, Created by cabinet override 0715 (Medication Afia lied - Provider: Franchesca Calhoun RN) Linked Groups Order Group 1: LORazepam (Ativan) injection 0.5 mgJump to med 0.5 mg, intravenous, Administer over 5 Minutes, Every 2 hour PRN, CIWA score 6-7 or HR greater than 100, Starting on Sat12/14/22 at 2137
Maximum rate of 2 mg/min.
Or LORazepam (Ativan) injection 1 mgJump to med 1 mg, intravenous, Administer over 5 Minutes, Every 2 hour PRN, CIWA score 8-9, Starting on Sat12/14/22 at 2137
Maximum rate of 2 mg/min.
Or LORazepam (Ativan) injection 2 mgJump to med 2 mg, intravenous, Administer over 5 Minutes, Every 2 hour PRN, CIWA score greater than 9, Starting on Sat12/14/22 at 2137
Maximum rate of 2 mg/min.
Care Team (unrecognized sect ion and content) Team Status: Inactive Member Role Status Dates Amanda Barrios APRN FOOD PRODUCTS TESTER-C Primary Care Provider Active Gunnar Moya DO Emergency Provider Active Team Status: Active Member Role Status Dates Amanda Barrios APRN FOOD PRODUCTS TESTER-C Primary Care Provider Active Team Status: Inactive Member Role Status Dates Amanda Barrios APRN FOOD PRODUCTS TESTER-C Primary Care Provider Active Declan Marina MD Emergency Provider Active Team Status: Inactive Member Role Status Dates Amanda Barrios APRN FOOD PRODUCTS TESTER-C Primary Care Provider Active Ari Aguero DO Emergency Provider Active Team Status: Inactive Member Role Status Dates Ari Aguero DO Emergency Provider Active Amanda Barrios APRN FOOD PRODUCTS TESTER-C Primary Care Provider Active Team Status: Inactive Member Role Status Dates Amanda Barrios APRN FOOD PRODUCTS TESTER-C Primary Care Provider Active Eric Dooley MD Emergency Provider Active Team Status: Inactive Member Role Status Dates Amanda Barrios APRN FOOD PRODUCTS TESTER-C Primary Care Provider Active TONIO Boyce-C Emergency Provider Active Team Status: Inactive Member Role Status Dates Amanda Barrios APRN FOOD PRODUCTS TESTER-C Primary Care Provider Active Ari Aguero DO Emergency Provider Active Joann Bojorquez DO RES Active Team Status: Inactive Member Role Status Dates Amanda Barrios APRN FOOD PRODUCTS TESTER-C Primary Care Provider Active Pavel Yao DO Emergency Provider Active Team Status: Inactive Member Role Status Dates Amanda Barrios APRN FOOD PRODUCTS TESTER-C Primary Care Provider Active Kanchan Sanchez MD Attending Provider Active Team Status: Active Member Role Status Dates Amanda AntwonLOGAN jacobs FOOD PRODUCTS TESTER-C Primary Care Provider Active Ari Aguero , DO Emergency Provider Active Nguyễn Burrows MD Admit Provider, Attending Pr ovider Active Team Status: Inactive Member Role Status Dates Amanda AntwonLOGAN jacobs FOOD PRODUCTS TESTER-C Primary Care Provider Active Ari Aguero , DO Emergency Provider Active Nguyễn Burrows MD Admit Provider, Attending Pr ovider Active Special Projects Manager Relationship Specialty Start Date End Date Nini Mccollum, HARDBOARD PRESS OPERATOR-ELECTRICIAN SUPERVISOR [employer] [address] [place] [place] [id number] PCP - General 01/14/19 Team Status: Active Member Role Status Dates Diamante [place] Primary Care Provider Active Team Status: Inactive Member Role Status Dates Diamante [place] Primary Care Provider Active Braeden Schmitt PA-C Emergency Provider Active Team Status: Inactive Member Role Status Dates Amanda Barrios APRN FOOD PRODUCTS TESTER-C Primary Care Provider Active Samanta Castro Jr, MD Emergency Provider Active Team Status: Inactive Member Role Status Dates Ari Aguero DO Emergency Provider Active Sta rt: December 11, 2022 End: December 11, 2022 Amanda Barrios APRN FOOD PRODUCTS TESTER-C Primary Care Provider Active Start: December 11, 2022 End: December 11, 2022 Team Status: Inactive Member Role Status Dates Diamante [place] Primary Care Provider Active Star t: January 08, 2023 End: January 08, 2023 Braeden Schmitt PA-C Emergency Provider Active Start: January 08, 2023 End: January 08, 2023 Team Status: Inactive Member Role Status Dates Amanda Barrios APRN FOOD PRODUCTS TESTER-C Primary Care Provider Active Start: January 19, 2023 End: January 19, 2023 Pavel Yao DO Emergency Provider Active Start: January 19, 2023 End: January 19, 2023 Team Status: Inactive Member Role Status Dates Amanda Barrios APRN FOOD PRODUCTS TESTER-C Primary Care Provider Active Start: January 25, 2023 End: January 25, 2023 Samanta Castro Jr, MD Emergency Provider Active Start: January 25, 2023 End: January 25, 2023 Team Status: Inactive Member Role Status Dates Amanda Barrios APRN FOOD PRODUCTS TESTER-C Primary Care Provider Active Start: March 04, 2023 End: March 04, 2023 Gunnar Moya DO Emergency Provider Active St art: March 04, 2023 End: March 04, 2023 Goals (unrecognized section and content) Goals may be documented in a n alternate section FOR RECORDS PERTAINING TO PATIENTS WHO ARE OR HAVE BEEN ENROLLED IN A CHEMICAL DEPENDENCY/SUBSTANCEABUSE PROGRAM, SOME INFORMATION MAY BE OMITTED. This clinical summary was aggregated from multiple sources. Caution should be exercised in using it in the provision of clinical care. This summary normalizes information from multiple sources, and as a consequence, information in this document may materially change the coding, format and clinical context of patient data. In addition, data may be omitted in some cases. CLINICAL DECISIONS SHOULD BE BASED ON THE PRIMARY CLINICAL RECORDS. [employer] provides no warranty or guarantee of the accuracy or completeness of information in this document.
--- NOTE | 2023-03-05 04:00 | ECG_ITS ---
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
--- NOTE | 2023-03-05 04:03 | ED.CHESTPAI1 ---
HPI - Chest Pain General Chief Complaint: Chest Pain Stated Complaint: anxiety chest pain Time Seen by Provider: 03/05/23 03:52 Source: patient Mode of arrival: walk-in Limitations: no limitations History of Present Illness HPI narrative: history of anxiety for which she takes clonidine and inderal. States she has been experiencing chest pain and shortness of breath since yesterday AM. Feels like her heart is coming out of her chest and she is going to . Ongoing now for over 16 hours. Not able to sleep tonight and came in. no fever, nausea or abdominal pain Related Data Home Medications Medication Instructions Recorded Confirmed clonidine HCl 0.1 mg tablet mg 03/05/23 gabapentin 800 mg tablet mg 03/05/23 propranolol 40 mg tablet mg 03/05/23 Allergies Allergy/AdvReac Type Severity Reaction Status Date / Time codeine Allergy Severe Verified 01/16/23 18:22 hydroxyzine [From Vistaril] AdvReac Severe Verified 01/16/23 18:22 Review of Systems ROS Status of ROS 10 or more systems reviewed and unremarkable except as noted in history and below PFSH [facility] Social History Smoking status: Current every day smoker Exam Narrative Exam Narrative: patient rocking back and forth stating she feels like her heart is coming out of her chest. Monitor with heart rate regular at 80 Constitutional Vital Signs, click to edit/add: Last Vital Signs Temp 97.5 F L 03/05/23 03:42 Pulse 79 03/05/23 03:42 Resp 22 03/05/23 03:42 BP 137/82 03/05/23 03:42 Pulse Ox 99 03/05/23 03:42 O2 Del Method Room Air 03/05/23 03:42 Common normals: oriented x3 and healthy appearing General appearance: anxious HENMT Common normals: normocephalic and head/scalp atraumatic Eye Common normals: EOMs intact bilaterally and conjunctivae normal Respiratory Common normals: no retractions, no use of accessory muscles and clear to auscultation bilaterally Cardio Common normals: regular rate, regular rhythm, S1 normal heart sound and S2 normal heart sound GI Common normals: Normal to inspection, nondistended, normoactive bowel sounds present, soft to palpation and non-tender Extremity Common normals: normal to inspection and full ROM Neuro Common normals: oriented x3, CN's II-XII intact bilaterally, moves all extremities and no focal motor deficits Psych Common normals: cooperative Mood and affect: anxious Course Vital Signs Vital signs: Vital Signs Temperature 97.5 F L 03/05/23 03:42 Pulse Rate 79 03/05/23 03:42 Respiratory Rate 22 03/05/23 03:42 Blood Pressure 137/82 03/05/23 03:42 Pulse Oximetry 99 03/05/23 03:42 Oxygen Delivery Method Room Air 03/05/23 03:42 Temperature 97.5 F L 03/05/23 03:42 Pulse Rate 79 03/05/23 03:42 Respiratory Rate 22 03/05/23 03:42 Blood Pressure 137/82 03/05/23 03:42 Pulse Oximetry 99 03/05/23 03:42 Oxygen Delivery Method Room Air 03/05/23 03:42 MDM - Chest Pain MDM Narrative Medical decision making narrative: patient presents with a panic attack. Treated in the department with ativan and she was able to calm down and requested discharge Discharge Plan Discharge Chief Complaint: Chest Pain Clinical Impression: Panic attack Patient Disposition: Home, Self-Care Prescriptions / Home Meds: No Action clonidine HCl 0.1 mg tablet propranolol 40 mg tablet gabapentin 800 mg tablet Instructions: Anxiety (ED) Stand Alone Forms: Portal Instructions Referrals: Physician,Non-Staff, MD [Primary Care Provider] - 1 week
[2023-03-05] MEDS: LORAZEPAM 1 MG TABLET PO (04:20)
--- NOTE | 2023-03-05 04:31 | PC.NURSE ---
Patient states that now that she is somewhere that she feels safe, she wants a blanket and to try and go to sleep. The person with her says that she means that she knows she is not going to , she knows that her vital signs are good and we did an EKG and she is not having a heart attack. Patient is resting in the bed comfortably at this time .
== END 2023-03-05 04:51 | disposition home or self-care (01) ==
PROVIDERS: Emergency Provider Internal Medicine
DX: F41.0 Panic disorder [episodic paroxysmal anxiety] (principal); F41.9 Anxiety disorder, unspecified; Z79.899 Other long term (current) drug therapy; F17.210 Nicotine dependence, cigarettes, uncomplicated
CPT/HCPCS: 93005; 99283

== ENCOUNTER 2023-08-30 18:07 | Inpatient (IN) | payer OTHER, SELFPAY ==
[2023-08-30] VITALS (21 sets, daily range): BP systolic 116–159; BP diastolic 78–103; PULSE 70–98; TEMP 36.1–36.4; O2SAT 91–99; BMI 26.5; BMI 29.3
--- OUTSIDE RECORDS SUMMARY | 2023-08-30 18:33 | XMS_ITS | CCD ---
Author Organization [facility] Care Team Providers Care [place] Welter Name Role Phone ELVIS CAMPBELL Primary Care Unavailable Elvis Campbell Primary Care Provider [phone] Wolf, Nini Unavailable Unavailable Tavallaee Chintan Unavailable Unavailable Wolf, Nini D Unavailable Unavailable Ghazarian Elvis V Unavailable Unavailable Wolf, Nini Unavailable Unavailable Wolf, Nini D Unavailable Unavailable Wolf, Nini Primary Care Provider WOLF, NINI Primary Care Unavailable CRESCENCIO EMANUEL Attending Unavailable Wolf, Nini D Unavailable Unavailable Unavailable Bradley Campbellhar V Unavailable [phone] Wolf, Nini Unavailable Chilo Glover Unavailable Unavailable WOLF, NINI Primary Care Unavailable HERMINIA MCCARTHY Attending Unavailable HERMINIA MCCARTHY Attending Unavailable WOLF, NINI Primary Care Unavailable Jeffery Bynum MD Attending Unavailable Jeffery Bynum MD Admitting Unavailable Unavailable Primary Care Provider UnavailZAIRE Hay Attending Unavailable MARIA E BLANCAS Referring Unavailable Amanda BARRIOS Primary Care Physician Michelle Ferrera Unavailable Unavailable REQUEST, NONE LISTED Primary Care Unavaila STEPHENIE Pete Admitting Unavailable STEPHENIE FERNANDEZ Attending Unavailable STEPHENIE FERNANDEZ Consulting Unavailable REQUEST, NONE LISTED Primary Care Unavaila ivy DOOLEY DR ELIDA Soliman Admitting Unavailable MARCO, DR ELIDA Soliman Attending Unavailable MARCO, DR ELIDA Soliman Consulting Unavailable LOGAN Barrios Primary Care Provider DO Azra Farmer Emergency Provider MD Declan Marina Emergency Provider DO Ari Agueor Emergency Provider Unavailable Primary Care Provider UnavailPHU Ornelas Attending Unavailable DECLAN GOEL Attending Unavailable JOEL ALVES Attending Unavailable MD Eric Dooley Emergency Provider TAHIR Schmitt Emergency Provider [phone] DO Pavel Yao Emergency Provider LOGAN Barrios Primary Care Provider DO Azra Farmer Emergency Provider MD Declan Marina Emergency Provider DO Ari Aguero Emergency Provider [phone] MD Eric Dooley Emergency Provider TAHIR Schmitt Emergency Provider DO Pavel Yao Emergency Provider MD Kanchan Sanchez Attending Provider Kanchan Sanchez Unavailable LOGAN Barrios Primary Care Provider DO Ari Aguero Emergency Provider MD Nguyễn Burrows Admit Provider MD Nguyễn Burrows Attending Provider [phone] Freda Clarke Unavailable Unavailable LOGAN Barrios Primary Care Provider DO Ari Aguero Emergency Provider MD Declan Marina Emergency Provider LOGAN Barrios Primary Care Provider MD Kanchan Sanchez Attending Provider Diamante Cleveland Primary Care Physician Birgit COOPER Unavailable LOGAN Barrios Primary Care Provider DO Ari Aguero Emergency Provider Nini Miles Primary Care Provider LOGAN Barrios Primary Care Provider MD Kanchan Sanchez Attending Provider DO Ari Aguero Emergency Provider [phone] Diamante Cleveland Primary Care Provider TAHIR Schmitt Emergency Provider NINI MCCOLLUM Primary Care Unavailable ROSA ELENA HOWE Attending Unavailjeanine e LOGAN Barrios Primary Care Provider DO Pavel Yao Emergency Provider MD Samanta Castro Jr Emergency Provider DO Azra Farmer Emergency Provider Diamante Cleveland Primary Care Provider MD Gautam Burrows Attending Provider [phone] LOGAN Barrios Primary Care Provider DO Delvis Benz Emergency Provider MD Declan Marina Emergency Provider LOGAN Barrios Primary Care Provider DO Azra Farmer Emergency Provider [phone] DO Delvis Benz Emergency Provider [phone] MD Declan Marina Emergency Provider MD Eric Dooley Emergency Provider DO Diane Paez Emergency Provider JOANA Amanda E Attending Unavailable ROBUCK, Amanda E Attending Unavailable ROBUCK, Amanda E Attending Unavailable ROBUCK, Amanda E Attending Unavailable Comstock, Francisco Consulting Unavailable EDISON, Azra A Admitting Unavailable Endy Raphael Attending Unavailable Comstock, Francisco Consulting Unavailable Comstock, Francisco Consulting Unavailable Comstock, Francisco Consulting Unavailable Comstock, Francisco Consulting Unavailable Comstock, Francisco Consulting Unavailable Comstock, Francisco Consulting Unavailable Comstock, Francisco Consulting Unavailable Comstock, Francisco Consulting Unavailable Comstock, Francisco Consulting Unavailable EDISON, Azra A Admitting Unavailable Kam Rizzo Attending Unavailable Comstock, Francisco Consulting Unavailable Comstock, Francisco Consulting Unavailable Comstock, Francisco Consulting Unavailable Comstock, Francisco Consulting Unavailable Comstock, Francisco Consulting Unavailable Comstock, Francisco Consulting Unavailable Comstock, Francisco Consulting Unavailable Comstock, Francisco Consulting Unavailable Darren Guzman Attending Unavailable Kerry Linton Attending Unavailable Stanislav FRAIRE Attending Unavailable Birgit COOPER Attending Unavailable Birgit COOPER Admitting Unavailable CARRIE PEREZ Attending Unavailable Bailee, Lorie Attending Unavailable Mike Spear Attending Unavailable Mike Spear Attending Unavailable JADA COLBY Attending Unavailable JADA COLBY Admitting Unavailable CARRIE PEREZ Attending Unavailable CARRIE PEREZ Admitting Unavailable Mike Spear Attending Unavailable Mike Spear Admitting Unavailable Lorie Morocho Attending Unavailable Bailee Lorie Admitting Unavailable JEF HEADLEY Attending Unavailable JEF HEADLEY Admitting Unavailable Isai Hall Attending Unavailable Darren Guzman Attending Unavailable Gladys Saini Attending Unavailable Isai Hall Attending Unavailable Isai Hall Attending Unavailable Kerry Linton Attending Unavailable Eric Forbes Attending Unavailable Eric Forbes Attending Unavailable Amanda BARRIOS Attending Unavailable Amanda BARRIOS Attending Unavailable Amanda BARRIOS Attending Unavailable Amanda BARRIOS Attending Unavailable Amanda BARRIOS Attending Unavailable Amanda BARRIOS Attending Unavailable Kaushik Sparks Attending Unavailable Isai Hall Attending Unavailable Isai Hall Attending Unavailable Kaushik Sparks Attending Unavailable Mike Spear Admitting Unavailable Mike Spear Attending Unavailable Isai Hall Attending Unavailable Mike Spear Attending Unavailable Amanda BARRIOS Attending Unavailable Eric Forbes Attending Unavailable Diamante Cleveland Primary Care Provider [phone] MD Gautam Burrows Attending Provider [phone] LOGAN Barrios Primary Care Provider [phone] MD Piyush Pace Admit Provider [phone] MD Piyush Pace Attending Provider Eirc Forbes Attending Unavailable FREDDY BARRIOS Admitting Unavailable Gautam Burrows Attending Unavailab Diamante De León Primary Care Unavailable Gautam Burrows Admitting Unavailab Declan Victor Attending Unavailable Antwonreynaldo, Amanda Primary Care Unavailable Declan Marina Admitting Unavailable Robuck, Amanda Primary Care Unavailable Diane Paez Attending Unavailable Diane Paez Admitting Unavailable Robuck, Amanda Primary Care Unavailable Ari Aguero Attending Unavailable Ari Aguero Admitting Unavailable Braeden Schmitt Attending Unavailable Braeden Schmitt Admitting Unavailable Ignacio Clevelandca Yung Primary Care Unavailable Robuck, Amanda Primary Care Unavailable Pavel Yao Attending Unavailable Pavel Yao Admitting Unavailable Robuck, Amanda Primary Care Unavailable Samanta Castro Jr Admitting Unavailable Samanta Castro Jr Attending Unavailable Robuck, Amanda Primary Care Unavailable Asaad, Imad Attending Unavailable Asaad, Imad Admitting Unavailable Declan Marina Attending Unavailable Robuck, Amanda Primary Care Unavailable Declan Marina Admitting Unavailable Robuck, Amanda Primary Care Unavailable Azra Farmer Attending Unavailable Azra Farmer Admitting Unavailable Robuck, Amanda Primary Care Unavailable Piyush Pace Attending Unavailable Piyush Pace Admitting Unavailable Robuck, Amanda Primary Care Unavailable Delvis Benz Admitting Unavailable Delvis Benz Attending Unavailable Antwonuck, Amanda Primary Care Unavailable Eric Dooley Attending Unavailable Eric Dooley Admitting Unavailable Robuck, Amanda Primary Care Unavailable Azra Farmer Admitting Unavailable Azra Farmer Attending Unavailable Allergies Allergy Classification Reported Allergen(s) Allergy Type Date of Onset Reaction(s) Facility Antihistamines (2 sources) hydrOXYzine; Translations: [Vistaril] Drug Allergy [facility] Docusate (1 source) Docusate; Translations: [Colace] Drug Allergy [facility] Opioid Agonists (4 sources) Codeine; Translations: [codeine] Drug Allergy 4 Rash, Tachycardia [facility] [address] [facility] Work Phone: QUEtiapine (3 sources) QUEtiapine; Translations: [SEROquel TABS] Drug Allergy 4 [facility]ository (9 sources) Bisacodyl Drug Allergy 7 Other (See Comments) [place], [place] (20 sources) Codeine; Translations: [codeine] Drug Allergy 7 Hives, Palpitations, Rash, Tachycardia, Red color (finding) [place], [place] (20 sources) QUEtiapine; Translations: [quetiapine] Drug Allergy 1 [facility] Work Phone: (1 source) Codeine Drug Allergy 7 [facility] Repository (1 source) Docusate Drug Allergy 7 [facility] Repository (9 sources) QUEtiapine; Translations: [SEROquel] Drug Allergy [facility] Repository (20 sources) QUEtiapine Drug Allergy 3 [facility] (20 sources) hydrOXYzine; Translations: [hydroxyzine] Drug Allergy 3 Palpitations, Anxiety [facility] (8 sources) Docusate; Translations: [Colace] Drug Allergy [facility] Medications Current Medications Medication Drug Class(es) Dates Sig (Normalized) Sig (Original) acetaminophen 325 mg oral tablet (12 sources) Start: 2023 take 2 tablets by [...] Once, # 2 tab(s), Refills(s) 0, Pharmacy: [facility] #[id number], 157, cm, 11/30/22 13:33:00 EDT, Height/Length Dosing, 73, kg, 11/30/22 13:33:00 EDT, Weight Dosing Start Date: 11/30/22 Status: Ordered busPIRone hydrochloride 5 mg oral tablet (20 sources) Start: 08-06-2023 take 5 mg by mouth twice daily Buspirone Active 5 MG PO Twice daily August 06, 2023 12:00am Start: 05-17-2020 End: 09-21-2020 take 10 mg by mouth three times daily Buspirone Discontinued 10 MG PO Three times daily June 07, 2020 12:00am September 21, 2020 10:18am Start: 01-14-2019 take 1 tablet by man three times daily as needed busPIRone HCl - 10 MG Oral Tablet TAKE 1 TABLET 3 times daily PRN Quantity: 270 Refills: 0 Nini Rojas Start : 14-Jan-2019 Active busPIRone Quanti ty: 0 Refills: 0 Ordered: 20-Mar-2019 Edwin Lujan Status: Other Generic Substitution Allowed cariprazine 1.5 mg oral capsule (6 sources) Atypical Antipsychotic Start: 12-15-2022 caripra zine (Vraylar) capsule 1.5 mg Start: 03-28-2022 take 1 capsule by mo [facility] once daily Vraylar 1.5 mg oral capsule 1.5 mg = 1 cap(s), Oral, Daily, # 30 cap(s), Refills(s) 0, [id number] 157.5, cm, 03/28/22 13:50:00 EST, Height/Length Dosing, 79.1, kg, 03/28/22 13:50:00 EST, Weight Dosing Start Date: 03/28/22 Status: Ordered Start: 07-04-2021 take 1 capsule by mo [facility] once daily Vraylar 1.5 mg oral capsule 1.5 mg = 1 cap(s), Oral, Daily, # 30 cap(s), Refills(s) 0, Pharmacy: [facility] #[id number], 157, cm, 07/04/21 15:06:00 EDT, Height/Length Dosing, 84.8, kg, 07/04/21 15:10:00 EDT, Weight Dosing Start Date: 07/04/21 Status: Ordered cephalexin 500 mg oral capsule (20 sources) Cephalosporin Antibacterial Start: 06-03-2023 End: 06-10-2023 take 1 capsule by mouth every six hours Keflex 500 mg Cap 500 mg = 1 cap(s), Oral, q6hr, X 7 day(s), # 28 cap(s), Refills(s) 0, Pharmacy: [facility] #37, 154, cm, 06/03/23 20:33:00 EDT, Height/Length Dosing, 71.8, kg, 06/03/23 20:33:00 EDT, Weight Dosing Start Date: 06/03/23 Stop Date: 06/10/23 Status: Ordered Start: 10-02-2021 End: 10-09-2021 take 1 capsule by mouth every eight hours cephalexin 500 mg Cap 500 mg = 1 cap(s), Oral, q8hr, X 7 day(s), # 21 cap(s), Refills(s) 0, [id number], 157, cm, 09/19/21 10:21:00 EDT, Height/Length Dosing, 86, kg, 09/19/21 10:21:00 EDT, Weight Dosing Start Date: 10/02/21 Stop Date: 10/09/21 Status: Ordered Start: 04-10-2021 End: 04-19-2021 take 500 mg by mouth every six hours Cephalexin Discontinued 500 MG PO Q6H 07 09April 10, 2021 1:00am April 19, 2021 11:28am Start: 08-08-2018 End: 04-13-2020 take 1 capsule by mouth three times daily Cephalexin (Keflex) 500 mg Capsule Discontinued 500 MG PO Three times daily August 08, 2018 12:00am April 13, 2020 2:22pm chlordiazePOXIDE hydrochloride 10 mg oral capsule (2 sources) Benzodiazepine Start: 08-10-2023 take 10 mg by mouth once daily Chlordiazepoxide Hcl Active 10 MG PO Daily 2 2 August 10, 2023 12:00am Start: 12-12-2022 chlordiazePOXI DE (Librium) 25 mg [...] 12 HOURS NEEDED. Quantity: 60 Refills: 0 Ingris PRESTON Nini Start : 15-Oct-2019 Active take 1 tablet by man th three times daily as needed KlonoPIN 0.5 mg oral tablet ; 1 tab(s) orally 3 times a day, As Needed Quantity: 0 Refills: 0 Ordered: 27-Jan-2020 Edwin Lujan Status: Other Generic Substitution Allowed cloNIDine hydrochloride 0.1 mg oral tablet (20 sources) Central alpha-2 Adrenergic Agonist Start: 02-07-2023 take 0.1 mg by mouth twice daily Clonidine Hcl Active 0.1 MG PO Twice daily April 25, 2023 12:00am Start: 08-16-2022 take 1 tablet by man th twice daily cloNIDine 0.1 mg tab 0.1 mg = 1 tab(s), Oral, BID, # 60 tab(s), Refills(s) 11, Pharmacy: [facility] #[id number], 157, cm, 08/15/22 13:49:00 EDT, Height/Length Dosing, 72.9, kg, 08/15/22 13:49:00 EDT, Weight Dosing Start Date: 08/16/22 Status: Ordered Start: 06-07-2022 End: 04-06-2023 take 0.1 mg by mouth once daily Clonidine Hcl Discontinued 0.1 MG PO Daily June 07, 2022 12:00am April 06, 2023 5:37pm Start: 04-16-2021 End: 08-13-2021 take 0.1 mg by mouth twice daily Clonidine Hcl Discontinued 0.1 MG PO Twice daily 60 30 April 19, 2021 1:03pm August 13, 2021 2:02pm doxepin 3 mg oral tablet (2 sources) Tricyclic Antidepressant Start: 09-19-2021 take 2 tablets by mouth once daily at bedtime doxepin 3 mg oral tablet 6 mg = 2 tab(s), Oral, Once a day (at bedtime), # 60 tab(s), Refills(s) 0, Pharmacy: [facility] #[id number], 157, cm, 09/19/21 10:21:00 EDT, Height/Length Dosing, 86, kg, 09/19/21 10:21:00 EDT, Weight Dosing Start Date: 09/19/21 Status: Ordered fluconazole 150 mg oral tablet (20 sources) Azole Antifungal Start: 06-17-2023 take 1 tablet by mouth once Diflucan 150 mg Tab 150 mg = 1 tab(s), Oral, Once, # 1 tab(s), Refills(s) 0, Pharmacy: [facility] #[id number], 156, cm, 06/17/23 15:35:00 EDT, Height/Length Dosing, 72.2, kg, 06/17/23 15:35:00 EDT, Weight Dosing Start Date: 06/17/23 Status: Ordered Start: 12-16-2022 End: 12-16-2022 fluconazole (Diflucan) table t 150 mg Start: 04-01-2022 End: 06-07-2022 take 1 tablet by mouth once Fluconazole (Diflucan) 150 mg tablet Discontinued 150 MG PO Once 1 April 01, 2022 1:00am June 07, 2022 4:37pm Start: 09-19-2021 take 1 tablet by mouth once Di flucan 150 mg Tab 150 mg = 1 tab(s), Oral, Once, May get refill if symptoms persist a week after taking the first tablet, # 1 tab(s), Refills(s) 1, [id number], 157, cm, 09/19/21 10:21:00 EDT, Height/Length Dosing, 86, kg, 09/19/21 10:21:00 EDT, Weight Do... Start Date: 09/19/21 Status: Ordered Start: 09-21-2020 End: 12-04-2020 take 1 tablet by mouth once daily Fluconazole (Diflucan) 200 mg tablet Discontinued 200 MG PO Daily September 21, 2020 12:00am December 04, 2020 4:05pm Start: 08-08-2018 End: 04-13-2020 take 1 tablet by mouth once daily Fluconazole (Diflucan) 200 mg tablet Discontinued 200 MG PO Daily August 08, 2018 12:00am April 13, 2020 2:22pm folic acid 1 mg oral tablet (20 [...] Acid Discontinued 1 MG PO Daily June 08, 2020 12:00am September 21, 2020 10:18am gabapentin 800 mg oral tablet (20 sources) Anti-epileptic Agent Start: 04-25-2023 take 800 mg by mouth three times daily Gabapentin Active 800 MG PO Three times daily April 25, 2023 12:00am Start: 12-16-2022 gabapentin (Ne urontin) capsule 800 mg Start: 08-28-2021 End: 04-06-2023 take 800 mg by mouth three times daily Gabapentin Discontinued 800 MG PO Three times daily August 28, 2021 12:00am April 06, 2023 5:37pm Start: 04-16-2021 End: 08-13-2021 take 800 mg by mouth three times daily Gabapentin Discontinued 800 MG PO Three times daily April 19, 2021 1:03pm August 13, 2021 2:02pm Start: 09-21-2020 End: 04-16-2021 take 800 mg by mouth three times daily Gabapentin Discontinued 800 MG PO Three times daily September 21, 2020 10:30am April 16, 2021 11:46am Start: 06-08-2020 End: 09-21-2020 take 400 mg by mouth twice daily Gabapentin Discontinu ed 400 MG PO Twice daily 0 June 08, 2020 10:26am September 21, 2020 10:17am Start: 06-07-2020 End: 06-08-2020 take 400 mg by mouth four times daily Gabapentin Discontinued 400 MG PO Four times daily June 07, 2020 12:00am June 08, 2020 10:27am Start: 06-05-2020 End: 06-07-2020 take 400 mg by mouth once daily Gabapentin Discontinue d 400 MG PO Daily June 05, 2020 12:00am June 07, 2020 6:42am Start: 04-13-2020 End: 05-26-2020 take 400 mg by mouth four times daily Gabapentin Discontinued 400 MG PO Four times daily April 13, 2020 1:00am May 26, 2020 11:11am Start: 11-24-2018 End: 12-24-2018 take 1 capsule [...] 600 MG PO Three times daily August 07, 2018 12:00am May 30, 2020 11:42am take 1 tablet by man th every twenty-four hours Gabapentin 800 MG 1 [...] anxiety, # 30 cap(s), Refills(s) 0, Pharmacy: [facility] #[id number], 158, cm, 11/04/22 12:27:00 EDT, Height/Length Dosing, 74.7, kg, 11/04/22 12:27:00 EDT, Weight Dosing Start Date: 11/04/22 Status: Ordered Start: 09-06-2022 End: 04-06-2023 take 50 mg by mouth twice daily Hydroxyzine Hcl Discon tinued 50 MG PO Twice daily September 06, 2022 12:00am April 06, 2023 5:37pm Start: 09-06-2022 End: 09-06-2022 Hydroxyzine Hcl Discontinued MG TABLET September 06, 2022 12:00am September 06, 2022 11:48am Start: 08-13-2022 take 1 tablet by man four times daily as needed for anxiety hydrOXYzine hydrochloride 50 mg oral tablet 50 mg = 1 tab(s), Oral, QID, PRN for anxiety, # 40 tab(s), Refills(s) 0, Pharmacy: [facility] #[id number], 157.5, cm, 08/13/22 13:00:00 EDT, Height/Length Dosing, 72.9, kg, 08/13/22 13:00:00 EDT, Weight Dosing Start Date: 08/13/22 Status: Ordered Start: 03-09-2022 End: 06-07-2022 take 1 capsule by mouth every eight hours Hydroxyzine Pamoate (Vistaril) 50 mg capsule Discontinued 50 MG PO Q8H March 09, 2022 1:00am June 07, 2022 4:39pm Start: 05-03-2021 End: 05-03-2021 hydrOXYzine (VISTARIL) injec tion 50 mg take 1 capsule by mo [facility] four times daily as needed Vistaril 50 mg oral capsule ; 1 cap(s) orally 4 times a day, As Needed Quantity: 0 Refills: 0 Ordered: 04-Apr-2020 Edwin Lujan Status: Other Generic Substitution Allowed loratadine 10 mg oral tablet (1 source) Start: 08-06-2023 take 1 tablet by mouth once daily Loratadine (Allergy Relief (Loratadine)) 10 mg tablet Active 10 MG PO Daily August 06, 2023 12:00am LORazepam 1 mg oral tablet (20 sources) [...] day(s), # 12 tab(s), Refills(s) 0, Pharmacy: [facility] #[id number], 157, cm, 12/10/22 8:08:00 EDT, Height/Length [...] 0.5 MG PO Q4H April 13, 2020 1:00am May 26, 2020 11:12am Start: 03-15-2020 take 1 tablet by mna th twice daily as needed for anxiety LORazepam 0.5 MG Oral Tablet TAKE 1 TABLET Twice daily PRN anxiety Quantity: 60 Refills: 0 Ingris HOUSING MANAGEMENT REPRESENTATIVE-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, Nini Start : 15-Mar-2020 Active Start: 03-10-2020 End: 03-10-2020 LORazepam (ATIVAN) tablet 1 mg take 1 tablet by man three times daily as needed Ativan 0.5 [...] mg methadone hydrochloride 10 mg oral tablet (20 sources) Opioid Agonist Start: 12-16-2022 methadone (Dol ophine) tablet 50 mg Start: 08-18-2022 End: 08-20-2022 methadone 10 mg Tab 105 mg = 10.5 tab(s), Oral, Daily, X 2 day(s), # 21 tab(s), Refills(s) 0, Pharmacy: [id number], 165, cm, 08/16/22 23:50:00 EDT, Height/Length Dosing, 74.8, kg, 08/16/22 23:50:00 EDT, Weight Dosing Start Date: 08/18/22 Stop Date: 08/20/22 Status: Ordered Start: 03-05-2022 End: 04-06-2023 take 105 mg by mouth once daily Methadone Discontinued 105 MG PO Daily March 05, 2022 1:00am April 06, 2023 5:37pm Start: 03-05-2022 take 115 mg by mouth once daily Methadone Active 115 MG PO Daily March 05, 2022 1:00am Start: 03-05-2022 take 100 mg by mouth once daily Methadone Active 100 MG PO Daily March 05, 2022 1:00am Methadone HCl Ac tive methylPREDNISolone 4 mg oral tablet (1 source) Corticosteroid Start: 08-06-2023 Methylprednisolone Active 4 MG PO .COMPLEX August 06, 2023 12:00am as directed metroNIDAZOLE 500 mg oral tablet (20 sources) Nitroimidazole Antimicrobial Start: 07-14-2023 End: 07-21-2023 take 1 tablet by mouth twice daily Flagyl 500 mg Tab 500 mg = 1 tab(s), Oral, BID, X 7 day(s), # 14 tab(s), Refills(s) 0, Pharmacy: [facility] #[id number], 156, cm, 07/14/23 11:03:00 EDT, Height/Length Dosing, 71, kg, 07/14/23 11:03:00 EDT, Weight Dosing Start Date: 07/14/23 Stop Date: 07/21/23 Status: Ordered Start: 09-21-2020 End: 12-04-2020 take 1 tablet by mouth four times daily Metronidazole (Flagyl) 500 mg tablet Discontinued 500 MG PO Four times daily September 21, 2020 12:00am December 04, 2020 4:06pm Multi For Her - (1 source) Multi For Her - as directed Orally Active multivitamin with minerals 1 tablet (1 source) Start: 3 multivitamin with minerals 1 tablet naproxen 250 mg oral tablet (3 sources) Nonsteroidal Anti-inflammatory Drug take 1 tablet by mouth twice daily as needed for pain naproxen (NAPROSYN) 250 MG tablet Take 250 mg by mouth 2 times daily as needed for Pain 0 Active 24 hr nicotine 0.875 mg/hr transdermal system (20 sources) Cholinergic Nicotinic Agonist Start: Nicotine Active 21 MG TRANSDERML Daily August 10, 2023 12:00am Start: 12-16-2022 End: 12-16-2022 nicotine (Nicoderm CQ) patch - Omnicell Override Pull Start: 04-19-2021 End: 07-26-2021 Nicotine Discontinued 1 EACH TRANSDERML Daily April 19, 2021 1:00am July 26, 2021 4:01pm Start: 06-08-2020 End: 09-21-2020 apply 1 dose transdermal route once daily Nicotine Discontinued 14 PATCH TRANSDERML Daily June 08, 2020 12:00am September 21, 2020 10:18am Start: 05-30-2020 End: 06-05-2020 Nicotine Discontinued 1 EACH TRANSDERML Daily May 30, 2020 12:00am June 05, 2020 1:22pm nitrofurantoin, macrocrystals 25 mg / nitrofurantoin, monohydrate 75 mg oral capsule (20 sources) Nitrofuran Antibacterial Start: 09-19-2021 End: 09-26-2021 take 1 capsule by mouth twice daily Macrobid 100 mg Cap 100 mg = 1 cap(s), Oral, BID, X 7 day(s), # 14 cap(s), Refills(s) 0, Pharmacy: [facility] #[id number], 157, cm, 09/19/21 10:21:00 EDT, Height/Length Dosing, 86, kg, 09/19/21 10:21:00 EDT, Weight Dosing Start Date: 09/19/21 Stop Date: 09/26/21 Status: Ordered Start: 09-21-2020 End: 12-04-2020 take 1 capsule by mouth every twelve hours at mealtime Nitrofurantoin Monohyd/M-Cryst (Macrobid) 100 mg Capsule Discontinued 100 MG PO Q12H 14 September 21, 2020 12:00am December 04, 2020 4:06pm Administer with a meal/food: swallow whole; do not open, crush, dissolve, or chew [place] (No Known Home Meds) (1 source) Start: 04-06-2023 [place] (No Known Home Meds) Active April 06, 2023 12:00am nystatin [id number] unt/ml oral suspension (1 source) Polyene Antifungal [...] otherwise directed by prescriber.Shake well before use. oxybutynin chloride 5 mg oral tablet (1 source) Cholinergic Muscarinic Antagonist Start: 08-13-2022 take 1 tablet by mouth twice daily as needed oxybutynin 5 mg Tab 5 mg = 1 tab(s), Oral, BID, PRN for urinary discomfort, # 60 tab(s), Refills(s) 1, Pharmacy: [facility] #[id number], 157.5, cm, 08/13/22 13:00:00 EDT, Height/Length Dosing, 72.9, kg, 08/13/22 13:00:00 EDT, Weight Dosing Start Date: 08/13/22 Status: Ordered 24 hr paliperidone 3 mg extended release oral tablet (13 sources) Atypical Antipsychotic Start: 01-02-2023 take 1 tablet by mouth at bedtime Invega 3 mg oral tablet, extended release 3 mg = 1 tab(s), Oral, Bedtime, # 30 tab(s), Refills(s) 0 Start Date: 01/02/23 Status: Ordered phenazopyridine hydrochloride 100 mg oral tablet (3 sources) Start: 07-14-2023 End: 07-17-2023 take 1 tablet by mouth three times daily Pyridium 100 mg Tab 100 mg = 1 tab(s), Oral, TID, X 3 day(s), # 9 tab(s), Refills(s) 0, Pharmacy: [facility], 156, cm, 07/14/23 11:03:00 EDT, Height/Length Dosing, 71, kg, 07/14/23 11:03:00 EDT, Weight Dosing Start Date: 07/14/23 Stop Date: 07/17/23 Status: Ordered Start: 01-27-2020 End: 01-29-2020 take 1 tablet [...] plenty of water.Take with food or milk. polyethylene glycol 3350 [id number] mg powder for oral solution (1 source) Osmotic Laxative Start: 07-27-19 End: 08-10-19 take 17 g by mouth once daily MiraLax 3350 Oral Pwdr for Recon 249 gram 17 gm, Oral, Daily, X 14 day(s), # 255 gm, Refills(s) 0, Pharmacy: [id number], 157, cm, 07/04/21 15:06:00 EDT, Height/Length Dosing, 84, kg, 07/26/21 18:15:00 EDT, Weight Dosing Start Date: 07/26/21 Stop Date: 08/09/21 Status: Ordered predniSONE 20 mg oral tablet (20 sources) Start: 08-29-19 End: 09-03-19 take 2 tablets by mouth once daily predniSONE 20 mg Tab 40 mg = 2 tab(s), Oral, Daily, X 5 day(s), # 10 tab(s), Refills(s) 0, Pharmacy: [facility], 165, cm, 08/28/22 9:51:00 EDT, Height/Length Dosing, 73, kg, 08/28/22 9:51:00 EDT, Weight Dosing Start Date: 08/28/22 Stop Date: 09/02/22 Status: Ordered Start: 03-19-2022 End: 04-01-2022 take 60 mg by mouth once daily at mealtime Prednisone Discontinued 60 MG PO Daily March 19, 2022 1:00am April 01, 2022 7:13pm administer with food or milk Start: 06-08-2020 End: 09-21-2020 take 20 mg by mouth once daily Prednisone Discontinued 20 MG PO Daily June 08, 2020 12:00am September 21, 2020 10:18am propranolol hydrochloride 10 mg oral tablet (20 sources) beta-Adrenergic Jus Start: 08-06-2023 take 10 mg by mouth once daily Propranolol Active 10 MG PO Daily August 06, 2023 12:00am Start: 04-25-2023 End: 08-06-2023 take 40 mg by mouth once daily Propranolol Discontinue d 40 MG PO Daily April 25, 2023 12:00am August 06, 2023 9:59pm Start: 01-02-2023 propranolol 40 mg, BID, Refills(s) 0 Start Date: 01/02/23 Status: Ordered Start: 04-13-2020 End: 05-30-2020 take 40 mg by mouth twice daily Propranolol Discontinu ed 40 MG PO Twice daily April 13, 2020 1:00am May 30, 2020 11:42am propranolol ; or ally once a day [...] 100 MG PO Daily January 25, 2017 1:00am April 13, 2020 2:22pm Therapeutic Multiple Vitamin Tab (12 sources) Start: 2023 Therapeutic Mu ltiple Vitamin [...] B1) Discontinued 100 MG PO Daily June 08, 2020 12:00am December 04, 2020 4:06pm traZODone hydrochloride 50 mg oral tablet (20 [...] bedtime), # 30 tab(s), Refills(s) 5, Pharmacy: [facility] #[id number], 157.5, cm, 10/06/21 16:25:00 EDT, Height/Length Dosing, 83.1, kg, 10/06/21 16:25:00 EDT, Weight Dosing Start Date: 01/02/22 Status: Ordered Start: 07-04-2021 take 1 tablet by man once daily at bedtime traZODONE 100 mg Tab 100 mg = 1 tab(s), Oral, Once a day (at bedtime), # 90 tab(s), Refills(s) 0, Pharmacy: [facility], 157, cm, 07/04/21 15:06:00 EDT, Height/Length Dosing, 84.8, kg, 07/04/21 15:10:00 EDT, Weight Dosing Start Date: 07/04/21 Status: Ordered Start: 04-16-2021 End: 08-13-2021 take 150 mg by mouth once daily at bedtime Trazodone Discontinued 150 MG PO Daily at bedtime April 19, 2021 1:03pm August 13, 2021 2:02pm 24 hr venlafaxine 150 mg extended release oral capsule (20 sources) Serotonin and Norepinephrine Reuptake Inhibitor Start: 08-25-2021 take 1 capsule by mouth once daily Effexor XR 150 mg Cap-ER 150 mg = 1 cap(s), Oral, Daily, # 30 cap(s), Refills(s) 0, [facility], 07/04/21 15:06:00 EDT, Height/Length Dosing, 84, kg, 07/26/21 18:15:00 EDT, Weight Dosing Start Date: 08/25/21 Status: Ordered Start: 07-04-2021 take 1 capsule by mo [facility] once daily Effexor XR 150 mg Cap-ER 150 mg = 1 cap(s), Oral, Daily, # 90 cap(s), Refills(s) 1, Pharmacy: [facility], 157, cm, 07/04/21 15:06:00 EDT, Height/Length Dosing, 84.8, kg, 07/04/21 15:10:00 EDT, Weight Dosing Start Date: 07/04/21 Status: Ordered Start: 04-16-2021 End: 08-13-2021 take 1 capsule by mouth once daily Venlafaxine (Effexor Xr) 150 mg capsule,extended release 24hr Discontinued 150 MG PO Daily May 06, 2021 12:00am July 26, 2021 4:01pm Start: 01-31-2021 End: 04-16-2021 take 1 capsule by mouth once daily Venlafaxine (Effexor Xr) 37.5 mg capsule,extended release 24hr Discontinued 37.5 MG PO Daily January 31, 2021 1:00am April 16, 2021 11:49am Start: 01-31-2021 End: 04-16-2021 take 1 capsule by mouth once daily Venlafaxine (Effexor Xr) 75 mg capsule,extended release 24hr Discontinued 75 MG PO Daily January 31, 2021 1:00am April 16, 2021 11:49am Start: 06-02-2020 [facility] Venlaf[facility] HCl - 37.5 MG Oral Tablet TAKE 1 TABLET DAILY. Quantity: 90 Refills: 0 Ordered: 15-Jul-2020 Nini Rojas Start : 02-Jun-2020 Active Start: 05-30-2020 End: 12-04-2020 take 37.5 mg by mouth once daily at bedtime Venlafaxine Discontinued 37.5 MG PO Daily at bedtime May 30, 2020 12:00am December 04, 2020 4:06pm Start: 11-24-2018 End: 12-20-2018 take 1 capsule by mouth once daily venlafaxine (EFFEXOR XR) 37.5 MG extended release capsule Indications: Anxiety Take 1 capsule by mouth daily 30 capsule 3 11/24/2018 12/20/2018 Discontinued (LIST CLEANUP) Start: 10-23-2018 take 1 capsule by mo [facility] once daily venlafaxine (EFFEXOR XR) 37.5 MG extended release capsule Indications: Anxiety Take 1 capsule by mouth daily 30 capsule 3 10/23/2018 Active venlafaxine (EFF EXOR) 100 MG tablet Take 150 mg by mouth 3 times daily 0 Active ziprasidone 20 mg oral capsule (1 source) Atypical Antipsychotic Start: 08-10-2023 take 20 mg by mouth once daily Ziprasidone Hcl Active 20 MG PO Daily with supper August 10, 2023 12:00am Zofran ODT 4 mg Tab-Dis (9 sources) Start: 06-03-2023 take 1 tablet by mouth every eight hours as needed for nausea Zofran ODT 4 mg Tab-Dis 4 mg = 1 tab(s), Oral, q8hr, PRN Nausea/Vomiting, # 12 tab(s), Refills(s) 0, Pharmacy: [facility], 154, cm, 06/03/23 20:33:00 EDT, Height/Length Dosing, 71.8, kg, 06/03/23 20:33:00 EDT, Weight Dosing Start Date: 06/03/23 Status: Ordered Completed/Discontinued Medications Medication Drug Class(es) Dates Sig (Normalized) Sig (Original) acetaminophen 325 mg / HYDROcodone bitartrate 5 mg oral tablet (20 sources) Opioid Agonist Start: 01-25-2017 End: 08-07-2018 take 1 tablet by mouth every four to six hours Hydrocodone-Aceta minophen ([place]) 5-325 mg tablet Discontinued 1 TAB PO EVERY 4-6 HOURS January 25, 2017 August 07, 2018 9:06pm 60 actuat albuterol 0.09 mg/actuat metered dose inhaler (2 sources) beta2-Adrenergic Agonist Start: 05-20-2019 take 2 puff(s) by inhalation every six hours as needed for wheezing Albuterol Sulfate HFA 108 (90 Base) MCG/ACT Inhalation Aerosol Solution INHALE 2 PUFFS Every 6 hours PRN SOB/WHEEZING Quantity: 1 Refills: 5 Wolf HOUSING MANAGEMENT REPRESENTATIVE-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, Nini Start : 20-May-2019 Active 6.7 GM Inhaler ALPRAZolam 0.5 mg oral tablet (20 sources) Benzodiazepine Start: 06-08-2020 End: 09-21-2020 take 1 tablet by mouth three times daily Alprazolam (Xanax) 0.5 mg tablet Discontinued 0.5 MG PO Three times daily 14 June 08, 2020 12:00am September 21, 2020 10:18am amoxicillin 875 mg / clavulanate 125 mg oral tablet (20 sources) Penicillin-class Antibacterial Start: 04-01-2022 End: 06-07-2022 take 1 tablet by mouth twice daily Amoxicillin-Pot Clavulanate Discontinued 1 TAB PO Twice daily April 01, 2022 1:00am June 07, 2022 4:38pm Start: 01-25-2017 End: 01-30-2017 take 1 tablet by mouth twice daily Amoxicillin-Pot Clavulanate (Augmentin) 875-125 mg tablet Discontinued 1 TAB PO Twice daily 11 15January 25, 2017 1:00am January 30, 2017 1:03am ARIPiprazole 10 mg oral tablet (4 sources) Atypical Antipsychotic Start: 03-15-2020 take 1 tablet by mouth once daily ARIPiprazole 10 MG Oral Tablet TAKE 1 TABLET DAILY. Quantity: 90 Refills: 0 Wolf HOUSING MANAGEMENT REPRESENTATIVE-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, Nini Start : 15-Mar-2020 Active Start: 04-17-2019 take 1 tablet by man th once daily ARIPiprazole 20 MG Oral Tablet TAKE 1 TABLET DAILY. Quantity: 90 Refills: 3 Wolf HOUSING MANAGEMENT REPRESENTATIVE-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, Nini Start : 17-Apr-2019 Active brompheniramine maleate 0.4 mg/ml / dextromethorphan hydrobromide 2 mg/ml / pseudoephedrine hydrochloride 6 mg/ml oral solution (1 source) alpha-Adrenergic Agonist, Uncompetitive R-npguvv-C-aspartate Receptor Antagonist, Sigma-1 Agonist Start: 04-04-2020 End: 04-13-2020 take 5 mL by mouth every four to six hours brompheniramine/pseudoephedrine/dextrome thorphan [id number]/5 mL oral syrup ; 5 milliliter(s) orally [...] Leann Hall Start: 04-Apr-2020 End: 13-Apr-2020 Status: Discontinued Generic [...] mg / naloxone 2 mg sublingual tablet (20 sources) Partial Opioid Agonist, Opioid Antagonist Start: 08-28-2021 End: 03-05-2022 take 1 tablet under the tongue once daily Buprenorphine-Naloxone (Suboxone) 8-2 mg Tablet, Sublingual Discontinued 2 TAB SUBLINGUAL Daily August 28, 2021 12:00am March 05, 2022 2:58pm clindamycin 150 mg oral capsule (18 sources) Lincosamide Antibacterial Start: 04-03-2022 End: 06-07-2022 take 450 mg by mouth every eight hours Clindamycin Hcl Discontinued 450 MG PO Q 8H 63 7 April 03, 2022 1:00am June 07, 2022 4:37pm disulfiram 250 mg oral tablet (20 sources) Aldehyde Dehydrogenase Inhibitor Start: 04-19-2021 End: 07-26-2021 take 250 mg by mouth once daily Disulfiram Discontinued 250 MG PO Daily April 19, 2021 1:00am July 26, 2021 4:01pm Start: 09-21-2020 End: 12-04-2020 Disulfiram Discontinued MG T ABLET September 21, 2020 12:00am December 04, 2020 4:05pm escitalopram 5 mg oral tablet (13 sources) Serotonin Reuptake Inhibitor Start: 06-10-2022 End: 09-06-2022 take 5 mg by mouth once daily Escitalopram Oxalate Discontinued 5 MG PO Daily June 10, 2022 12:00am September 06, 2022 11:44am fluticasone propionate 0.05 mg/actuat metered dose nasal [...] tablet (20 sources) Nonsteroidal Anti-inflammatory Drug Start: 04-08-2023 End: 04-25-2023 Ibuprofen Discontinued 600 MG PO Every 6 hours April 08, 2023 1:00am April 25, 2023 6:02pm do not exceed 4 doses in a 24 hour period Start: 03-19-2022 End: 04-01-2022 Ibuprofen Discontinued 600 M G PO Every 6 hours March 19, 2022 1:00am April 01, 2022 7:13pm do not exceed 4 doses in a 24 hour period Start: 03-11-2017 End: 06-07-2022 take 800 mg by mouth three times daily Ibuprofen Discontinued 800 MG PO Three times daily August 28, 2021 12:00am June 07, 2022 4:39pm Start: 01-25-2017 End: 08-07-2018 Ibuprofen Discontinued 600 M G PO EVERY 4-6 HOURS January 25, 2017 1:00am August 07, 2018 9:06pm do not exceed 4 doses in a 24 hour period iopamidol (ISOVUE-370) 76 % injection 75 mL (1 source) Start: 05-03-2021 End: 05-03-2021 iopamidol (ISOVUE-370) 76 % injection 75 mL levothyroxine sodium 0.112 mg oral tablet (20 sources) l-Thyroxine Start: 04-16-2021 End: 07-26-2021 take 112 ug by mouth once daily Levothyroxine Discontinued 112 MCG PO DAILY@0630 30 April 19, 2021 1:03pm July 26, 2021 4:01pm lurasidone hydrochloride 120 mg oral tablet (20 sources) Atypical Antipsychotic Start: 05-06-2021 End: 07-26-2021 Lurasidone (Latuda) 120 mg tablet Discontinued 120 MG PO Daily May 06, 2021 12:00am July 26, 2021 4:01pm must administer with food (at least 350 calories) Start: 04-16-2021 End: 07-26-2021 take 1 tablet by mouth once daily Lurasidone (Latuda) 120 mg tablet Discontinued 120 MG PO Daily with supper April 19, 2021 1:03pm July 26, 2021 4:01pm Start: 04-13-2020 End: 04-16-2021 take 1 tablet by mouth once daily Lurasidone (Latuda) 60 mg tablet Discontinued 120 MG PO Daily April 13, 2020 1:00am April 16, 2021 11:47am take 1 tablet by man th once daily lurasidone (LATUDA) 40 MG TABS tablet Take by mouth daily 0 Active take 1 tablet by man th once daily Latuda 120 MG Oral Tablet Take 1 tablet daily Quantity: 90 Refills: 0 Ordered: 15-Jul-2020 Nini Rojas Active Multiple Vitamin (MULTI-VITAMINS) TABS (2 sources) Start: [...] the muscle every 30 days 0 Active ondansetron 4 mg oral tablet (20 sources) Serotonin-3 Receptor Antagonist Start: 04-25-2023 End: 08-06-2023 take 4 mg by mouth every eight hours Ondansetron Hcl Discontinued 4 MG PO Q8H 15 5 April 25, 2023 12:00am August 06, 2023 9:59pm Start: 2023 End: 01-10-2023 take 1 tablet by mouth every six hours as needed for nausea Zofran 4 mg Tab 4 mg = 1 tab(s), Oral, q6hr, PRN Nausea, X 5 day(s), # 20 tab(s), Refills(s) 0, Pharmacy: [facility], 155, cm, 01/05/23 1:00:00 EST, Height/Length [...] nausea, # 10 tab(s), Refills(s) 0, Pharmacy: [facility], 157, cm, 12/10/22 8:08:00 EDT, Height/Length Dosing, 72.2, kg, 12/10/22 8:08:00 EDT, Weight Dosing Start Date: 12/10/22 Status: Ordered Start: 06-12-2020 End: 09-21-2020 take 1 tablet by mouth every eight hours Ondansetron Hcl (Zofran) 4 mg tablet Discontinued 4 MG PO Q8H 6 2 June 12, 2020 12:00am September 21, 2020 10:18am Start: 06-02-2020 take 1 tablet by man [...] End: 25-Feb-2020 Status: Other Generic Substitution Allowed PHENobarbital 130 mg/ml injectable solution (2 sources) Start: 12-15-2022 End: 12-15-2022 PHENobarbital (Luminal) injection 260 mg Start: 12-15-2022 End: 12-15-2022 PHENobarbital (Luminal) inje ction 260 mg rOPINIRole 0.5 mg oral tablet (4 sources) Nonergot Dopamine Agonist Start: 06-02-2020 take 1 tablet by mouth at bedtime rOPINIRole HCl - 0.5 MG Oral Tablet TAKE 1 TABLET Bedtime Quantity: 90 Refills: 0 Ordered: 15-Jul-2020 Nini Rojas Start : 02-Jun-2020 Active Start: 11-24-2018 End: [...] mg / trimethoprim 160 mg oral tablet (19 sources) Dihydrofolate Reductase Inhibitor Antibacterial, Sulfonamide Antimicrobial Start: 04-03-2022 End: 06-07-2022 take 1 tablet by mouth twice daily Sulfamethoxazole-Trimethoprim (Bactrim Ds) 800-160 mg tablet Discontinued 1 TAB PO Twice daily 14 7 April 03, 2022 1:00am June 07, 2022 4:37pm Start: 01-27-2020 End: 02-02-2020 take 1 tablet [...] sources) Mood Stabilizer, Anti-epileptic Agent Start: 02-10-20 19 take 1 tablet by mouth once daily Divalproex Sodium ER 500 MG Oral Tablet Extended Release 24 Hour TAKE 1 TABLET DAILY. Quantity: 90 Refills: 1 Ingris PRESTON Nini Start : 09-Feb-2019 Active Depakote Quantit y: 0 Refills: 0 Ordered: 20-Mar-2019 Edwin Lujan Status: Other Generic Substitution Allowed zolpidem tartrate 5 mg oral tablet (20 sources) gamma-Aminobutyric Acid-ergic Agonist Start: 01-25-2017 End: 08-07-2018 take 5 mg by mouth once daily at bedtime Zolpidem Discontinued 5 MG PO Daily at bedtime January 25, 2017 1:00am August 07, 2018 9:06pm Problems Active Problems Problem Classification Problem Date Documented Da te Episodic/Chronic Administrative/social admission (20 sources) Repeated prescription; Translations: [Encounter for issue of repeat prescription] 04-13-2020 Episodic Alcohol-related disorders (20 sources) Alcohol abuse; Translations: [Alcohol withdrawal syndrome] Onset: 05-03-2021 Chronic Alcohol-related disorders (20 sources) Alcohol intoxication; Translations: [Alcohol use, unspecified with intoxication, unspecified] Onset: 03-12-2022 01-22-2021 Episodic Anxiety disorders (20 sources) Anxiety; Translations: [Generalized anxiety disorder] Onset: 12-14-2016 Resolved: 04-10-2018 04-10-2018 Chronic Diseases of white blood cells (1 source) Leukocytosis; Translations: [Elevated white blood cell count, unspecified] Onset: 08-17-2022 Chronic E Codes: Natural/environment (18 sources) Dog bite - wound; Translations: [Bitten by dog, initial encounter] 04-03-2022 Episodic Epilepsy; convulsions (1 source) Seizure; Translations: [Unspecified convulsions] Onset: 07-03-2023 Episodic Fluid and electrolyte disorders (1 source) Dehydration; Translations: [Dehydration] Onset: 08-17-2022 Episodic Genitourinary symptoms and ill-defined conditions (20 sources) Dysuria; Translations: [Dysuria] Onset: 11-30-2022 11-30-2022 Episodic Headache; including migraine (2 sources) Headache; Translations: [Headache] Episodic Hepatitis (20 sources) Chronic hepatitis C; Translations: [Chronic viral hepatitis C] 06-08-2020 Chronic Hepatitis (20 sources) Viral hepatitis C; Translations: [Unspecified viral hepatitis C without hepatic coma] 11-19-2017 Episodic Hepatitis (1 source) Hepatitis; Translations: [Chronic viral hepatitis C] Onset: 10-11-2022 Immunizations and screening for infectious disease (18 sources) Exposure to sexually transmissible disorder; Translations: [Contact with and (suspected) exposure to infections with a predominantly sexual mode of transmission] Onset: 11-30-2022 11-30-2022 Episodic Malaise and fatigue (20 sources) Asthenia; Translations: [Weakness] 08-13-2021 Episodic Mood disorders (20 sources) Recurrent major depressive episodes; Translations: [Bipolar disorder, most recent episode depression] Onset: 04-10-2018 04-10-2018 Chronic Mycoses (20 sources) Candidiasis of vagina 12-30-2019 Episodic Nutritional deficiencies (3 sources) Iron deficiency; Translations: [Iron deficiency] Chronic Nutritional deficiencies (1 source) Iron deficiency; Translations: [Iron deficiency anemia, unspecified] Episodic Open wounds of extremities (19 sources) Dog bite of hand; Translations: [Open bite of right hand, initial encounter] 04-01-2022 Episodic Open wounds of head; neck; and trunk (20 sources) Laceration of head; Translations: [Laceration without foreign body of unspecified part of head, initial encounter] 04-10-2021 Episodic Other aftercare (2 sources) Patient encounter status; Translations: [Long-term (current) use of other medications] Onset: 06-30-2023 Episodic Other aftercare (1 source) Post-discharge follow-up; Translations: [Other follow-up examination] Episodic Other aftercare (1 source) Other fdc (current) drug therapy; Translations: [OTH CORRECTION CURRENT DRUG THERAPY] Onset: 07-31-2021 Episodic Other [...] SOFT TISSUE DISORDERS] Onset: 07-27-2021 Episodic Other female genital disorders (1 source) Noninflammatory disorder of the vagina; Translations: [Other specified noninflammatory disorders of vagina] Onset: 06-17-2023 Episodic Other gastrointestinal disorders (2 sources) Constipation, unspecified; Translations: [Constipation, unspecified] Onset: 07-26-2021 Episodic Other hereditary and degenerative nervous system conditions (15 sources) Restless legs; Translations: [Restless legs syndrome (RLS)] Onset: 04-10-2018 04-10-2018 Chronic Other infections; including parasitic (20 sources) Infection by Trichomonas; Translations: [Trichomoniasis, unspecified] 08-08-2018 Episodic Other infections; including parasitic (1 source) H/O: infectious disease; Translations: [Personal history of other infectious and parasitic diseases] Onset: 2023 Episodic Other injuries and conditions due to external causes (20 sources) Closed injury of head; Translations: [Unspecified injury of head, initial encounter] 04-14-2021 Episodic Other liver diseases (1 source) Inflammatory disease of liver; Translations: [Inflammatory liver disease, unspecified] Onset: 08-17-2022 Chronic Other liver diseases (20 sources) Enzyme level - finding; Translations: [Elevated transaminase measurement] Onset: 08-17-2022 06-07-2020 Episodic Other liver diseases (1 source) Increased aspartate transaminase level; Translations: [Elevation of levels of liver transaminase levels] Onset: 2023 Episodic Other lower respiratory disease (16 sources) Dyspnea; Translations: [Dyspnea, unspecified] 04-11-2022 Episodic [...] Chronic Other nutritional; endocrine; and metabolic disorders (12 sources) Hypomagnesemia; Translations: [Hypomagnesemia] 09-06-2022 Chronic Other nutritional; endocrine; and metabolic disorders (1 source) H/O: obesity; Translations: [H/O: obesity] Episodic Other nutritional; endocrine; and metabolic disorders (20 sources) Overweight in adulthood with body mass index of 25 or more but less than 30; Translations: [Body mass index (BMI) 29.0-29.9, adult] Onset: 08-13-2022 Episodic Other nutritional; endocrine; and metabolic disorders (20 sources) Overweight; Translations: [Overweight] Onset: 08-28-2022 Episodic Other screening for suspected conditions (not mental disorders or infectious disease) (20 sources) D-dimer above reference range; Translations: [Procedure carried out on subject] Onset: 07-04-2021 Episodic Other skin disorders (1 source) Generalized hyperhidrosis; Translations: [Generalized hyperhidrosis] Onset: 08-13-2022 Episodic Other skin disorders (20 sources) Hyperhidrosis 08-13-2022 Episodic Other upper respiratory infections (20 sources) Acute pharyngitis; Translations: [Acute pharyngitis, unspecified] Onset: 08-28-2022 Episodic Personality disorders (1 source) 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; 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] Onset: 07-05-2023 Chronic Poisoning by other medications and drugs (20 sources) Poisoning by unspecified drugs, medicaments and biological substances, accidental (unintentional), initial encounter; Translations: [Drug overdose] 09-28-2018 Episodic Residual codes; unclassified (4 sources) Current drinker; Translations: [Other specified conditions influencing health status] Episodic Residual codes; unclassified (1 source) History finding; Translations: [Other specified conditions influencing health status] Episodic Residual codes; unclassified (20 sources) Left against medical advice; Translations: [Procedure and treatment not carried out because of patient's decision for other reasons] 01-31-2021 Episodic Residual codes; unclassified (20 sources) History of clinical finding in subject; Translations: [Personal history of other specified conditions] 01-31-2021 Episodic Residual codes; unclassified (20 sources) Alcoholism; Translations: [Alcohol use disorder] 11-29-2020 Episodic Residual codes; unclassified (14 sources) Altered mental status; Translations: [Altered mental status, unspecified] 06-07-2022 Episodic Residual codes; unclassified (3 sources) Altered mental status, unspecified; Translations: [Altered mental status] 06-07-2022 Episodic Residual codes; unclassified (1 source) Tobacco user; Translations: [Tobacco use] Onset: 2023 Episodic Residual codes; unclassified (1 source) Hallucinations; Translations: [Hallucinations, unspecified] Onset: 08-06-2023 Episodic Residual codes; unclassified (1 source) Personal history of other specified conditions; Translations: [History of seizure] 01-31-2021 Episodic Schizophrenia and other psychotic disorders (1 source) Unspecified psychosis not due to a substance or known physiological condition; Translations: [Unspecified psychosis not due to a substance or known physiological condition] Onset: 08-06-2023 Chronic Schizophrenia and other psychotic disorders (3 sources) Brief psychotic disorder; Translations: [Acute psychosis] Onset: 08-06-2023 08-07-2023 Episodic Skin and subcutaneous tissue infections (20 sources) Abscess; Translations: [Cutaneous abscess, unspecified] 04-10-2021 Episodic Spondylosis; intervertebral disc disorders; other back problems (20 sources) Cervical radiculopathy; Translations: [Radiculopathy, cervical region] 03-19-2022 Episodic Sprains and strains (20 sources) Sprain of ankle; Translations: [Sprain of [...] unspecified (CMS/HCC)] Onset: 12-14-2022 Unclassified (1 source) F10.139; 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.139] Onset: 2023 Urinary tract infections (20 sources) Urinary tract infectious disease; Translations: [Urinary tract infection, site not specified] Onset: 09-19-2021 Episodic Past or Other Problems Problem Classification Problem Date Documented Date Episodic/Chronic Abdominal pain (5 sources) Abdominal pain; Translations: [Unspecified abdominal pain] Onset: 07-26-2021 Episodic Adjustment disorders (9 sources) Grief finding; Translations: [Adjustment disorder with depressed mood] Onset: 10-30-2016 Resolved: 04-10-2018 04-10-2018 Chronic Appendicitis and other appendiceal conditions (5 sources) Acute appendicitis; Translations: [Unspecified acute appendicitis] Onset: 03-12-2021 03-12-2021 Episodic Cardiac dysrhythmias (11 sources) Palpitations; Translations: [Palpitations] Onset: 12-10-2022 Episodic Miscellaneous mental health disorders (9 sources) Adjustment insomnia; Translations: [Acute insomnia] Onset: 09-18-2016 Resolved: 04-10-2018 04-10-2018 Episodic Mood disorders (4 sources) Bipolar disorder, most recent episode depression; Translations: [Bipolar depression] Nausea and vomiting (20 sources) Nausea; Translations: [Nausea alone] Onset: 12-10-2022 06-12-2020 Episodic Nonspecific chest pain (2 sources) Chest pain; Translations: [Chest pain, unspecified] Onset: 01-02-2023 Episodic Other aftercare (1 source) Post-discharge follow-up; Translations: [Hospital discharge follow-up] Unclassified (1 source) History finding; Translations: [No [...] Test Name Value Interpretation Reference Range Facility Provider Letteron 08-13-2023 Provider Letter Provider Letter August 13, 2023 [address]LEY [address] [place] [phone] LYLE BAILEY T 1990 Dear Lyle, We have been trying to reach you with no success. It is important that you return our call regarding your hospital discharge upon receiving this letter. Also, at the time of your call, please provide us with your current information. Thank you for your prompt attention to this matter. Sincerely, Ernesto Rossi RN, Bedspread Cutter Hand [phone] [facility] ED Note-Physicianon 08-09-19 ED Note-Physician ED Note-Physician Basic Information Time Seen: Fabricio Gao PA-C 08/06/2023 16:09 Chief Complaint pt. states she had new med changes yesterday and is having auditory and visual hallucinations today. denies SI/HI. pt. took methadone at 0400 today and admits to using ETOH. denies other substance use. pt. is drowsy but oriented. mother in triage. History of Present Illness 33-year-old female comes to the ED for evaluation of hallucinations. She has a history of bipolar disorder with alcohol and substance abuse. She presents today with acute hallucinations. She describes both auditory and visual hallucinations. She is hearing and seeing people not there. She states never had hallucinations in the past. She wonders if this is related to recent medication changes. She does have that she feels anxious but is not suicidal homicidal. Review of Systems A 10 point review of systems is negative except as noted above. Medical and Surgical History: Reviewed and noted Social history: Lives at home Tobacco: Denies Physical Exam Vitals & Measurements T: 37.1 ?C(Oral) HR: 104(Peripheral) RR: 18 BP: 130/88 SpO2: 95% HT: 157 cm WT: 76.4 kg BMI: 31 Nurses notes and vital signs reviewed and patient is not hypoxic. General: The patient appears well, resting comfortably. Skin: Warm, dry. Head: Atraumatic. Neck: No JVD. Eye: Normal conjunctiva. Ears, Nose, Mouth, and Throat: Moist mucous membranes. Cardiovascular: Strong distal pulses. Chest wall: Respiratory: Respirations are nonlabored. Back: Normal range of motion. Musculoskeletal: Normal ROM with no gross deformity. Gastrointestinal: Urological: Neurological: Awake and alert. No focal deficits. Follows commands. Psychiatric: Cooperative. Medical Decision Making Patient presents complaining of acute hallucinations. She is resting comfortably on exam. Not suicidal not homicidal. She did request something for anxiety is given oral Ativan. Patient is medically clear for psychiatric evaluation. At this time mental health evaluation is pending, and case discussed with the oncoming physician for follow-up and disposition. Assessment/Plan 1. Hallucinations (R44.3: Hallucinations, unspecified) Orders: lorazepam, 1 mg = 1 tab(s), Tab, Oral, Once, Stop date 08/06/23 16:17:00 EDT, STAT, Start date 08/06/23 16:17:00 EDT, 08/06/23 16:17:00 EDT CBC w/ Auto Diff Communication Order Comprehensive Metabolic Panel Consult to Mental Health Drug Screen Urine ECG 12 Lead Adult eGFR Ethanol Level Extra SST Tube Medications Administered Given Ativan 1 mg Tab, 1 mg, Oral Disposition Plan Discharge Prescription List Prescriptions No active prescription medications Follow-up No qualifying data available Problem List/Past Medical History Ongoing Alcohol abuse Bipolar depression BMI 29.0-29.9,adult Dysuria Hepatitis B Hepatitis C History of drug abuse Hyperhidrosis Lower extremity neuropathy Overweight Smoker Sore throat STD exposure UTI (urinary tract infection), uncomplicated Historical Group B streptococcus Smoker.. Yeast vaginitis Procedure/Surgical History None. Medications Inpatient No active inpatient medications Home acetaminophen 325 mg Tab, 650 mg= 2 tab(s), Oral, q6hr, PRN cloNIDine 0.1 mg tab, 0.1 mg= 1 tab(s), Oral, BID Diflucan 150 mg Tab, 150 mg= 1 tab(s), Oral, Once gabapentin 800 mg Tab, 800 mg= 1 tab(s), Oral, TID gabapentin 800 mg Tab, 800 mg= 1 tab(s), Oral, TID Invega 3 mg oral tablet, extended release, 3 mg= 1 tab(s), Oral, Bedtime propranolol, 40 mg, BID Therapeutic Multiple Vitamin Tab, Oral, Daily Zofran ODT 4 mg Tab-Dis, 4 mg= 1 tab(s), Oral, q8hr, PRN Allergies SEROquel (Swelling) Vistaril (Palpitations) codeine (Redness) Social History Alcohol - High Risk, 05/25/2020 Daily, 07/03/2023 Current, Daily, 06/03/2023 Liquor, Daily, 11/24/2020 Substance Abuse - High Risk, 11/17/2017 Current, 07/19/2020 Past, Heroin, 3-5 times per week, IV drug use: Yes. Ready to change: Yes., 11/17/2017 Current, Heroin, 11/16/2017 Tobacco - High Risk, 02/01/2012 10 or more cigarettes (1/2 pack or more)/day in last 30 days Tobacco Use:. Never Smokeless Tobacco Use:. Cigarettes, Ready to change: No. Household tobacco concerns: Yes., 07/14/2023 Family History Alcoholism: Mother and Father. Asthma: Mother. COPD: Mother. Hypertension: Father. Lab Results WBC: 7.4 E9/L (08/06/23 17::00) RBC: 3.4 E12/L Low (08/06/23 17::00) HGB: 11.9 gm/dL Low (08/06/23 17::00) Hct: 33.1 % Low (08/06/23::00) MCV: 98.1 fL (08/06/23::00) MCH: 35.2 pg High (08/06/23::00) MCHC: 35.9 gm/dL (08/06/23::) RDW: 14.2 % (08/06/23::00) Platelet: 101 E9/L Low (08/06/23 17::00) MPV: 9.4 fL (08/06/23::00) Neutro Auto: 68.1 % (08/06/23 17:28:00) Lymph Auto: 26.3 % (08/06/23 17::00) [place] Auto: 4.3 % (08/06/23::00) Eos Auto: 0.5 % (more content not included)... Normal [facility] Comment on above: Result Comment: Elec tronically Signed By: Fabricio Gao PA-C\.br\Date and Time Signed: 08/06/23 18:28 EDT\.br\Electronically Co-Signed By: Eric Forbes DO\.br\Date and Time Co-Signed: 08/09/23 07:16 EDT Cholesterol [Mass/volume] in Serum or PlasmaOrdered By: Piyush Pace on 08-07-2023 Cholesterol [Mass/Vol] 125 mg/dL Low 140-200 [facility] [place] Comment on above: Chol less than 200 m g/dl low riskChol 201-239 mg/dl borderline riskChol 240 mg/dl and greater high risk Result Comment: Chol less than 200 mg/dl low risk Chol 201-239 mg/dl borderline risk Chol 240 mg/dl and greater high risk Performed By: #### E ODALIS, MG, CMP, CBC #### [facility] [address] [id number] [facility] Cholesterol in LDL Calc [Mas s/Vol]Ordered By: Piyush Pace on 08-07-2023 Cholesterol in LDL [Mass/Vol] 78 mg/dL 0-100 [facility] [place] Comment on above: LDL ATP III CLASSIFI CATIONLDL less than 100 mg/dL OptimalLDL 100-129 mg/dL Near or above optimalLDL 130-159 mg/dL Borderline highLDL 160-189 mg/dL HighLDL greater than 189 mg/dL Very high Cholesterol in VLDL Calc [Ma ss/Vol]Ordered By: Piyush Pace on 08-07-2023 Cholesterol in VLDL [Mass/Vol] 31 mg/dL [facility] ECG 12 lead ECGon 08-07-2023 ECG 12 lead ECG [facility] [place] [address] [id number] Electrocardiograph Report Signed Patient: Lyle Bailey MR#: [id number] : 1990 Acct:[id number] Age/Sex: 33 / F ADM Date: 08/06/23 Loc: Room: [address] [place] [address] Type: ADM IN Attending Dr: Piyush Pace MD Ordering Provider: Piyush Pace MD Date of Service: 08/07/23 ECG/ECG 12 lead ECG: antipsychotic therapy Copies to: Test Reason : Blood Pressure : / mmHG Vent. Rate : 069 BPM Atrial Rate : 069 BPM P-R Int : 162 ms QRS Dur : 080 ms QT Int : 384 ms P-R-T Axes : 058 072 037 degrees QTc Int : 411 ms Normal sinus rhythm Normal ECG When compared with ECG of 17-MAR-2023 08:38, No significant change was found Confirmed by AZRA AVILA MD, FACC ([id number]) on 08/07/2023 12:48:52 PM Referred By: Electronically Signed By:AZRA AVILA MD FACC Transcribed By: MUS Signed By Endy Avila MD 08/07/23 1248 Normal [facility] Lipid Panelon 08-07-2023 LDL Cholesterol,Calculate d 78 mg/dL Normal 0-100 [facility] Comment on above: Result Comment: LDL ATP III CLASSIFICATION LDL less than 100 mg/dL Optimal LDL 100-129 mg/dL Near or above optimal LDL 130-159 mg/dL Borderline high LDL 160-189 mg/dL High LDL greater than 189 mg/dL Very high Performed By: #### E ODALIS, MG, CMP, CBC #### [facility] [address] Triglyceride w/Reflex 155 mg/dL High 0-149 [facility] Comment on above: Result Comment: TRIG ATP III CLASSIFICATION TRIG less than 150 mg/dL Normal TRIG 150-199 mg/dL Borderline high TRIG 200-500 mg/dL High TRIG greater than 500 mg/dL Very high Standard traceable to the Center for Disease Conrtrol and Prevention (CDC) test method. Performed By: #### E ODALIS, MG, CMP, CBC #### [facility] [address] VLDL CHOLESTEROL 31 mg/dL Normal [facility] Comment on above: Performed By: #### E ODALIS, MG, CMP, CBC #### [facility] [address] Serum or plasma high density lipoprotein (HDL) cholesterol measurementOrdered By: Piyush Pace on 08-07-2023 Cholesterol in HDL [Mass/Vol] 16 mg/dL Low 23-92 [facility] [place] Comment on above: HDL CHOL ATP-III CLA SSIFICATION Cardiovascular RiskHDL > or equal to 60 mg/dL LOWHDL < 40 mg/dL HIGH Result Comment: HDL CHOL ATP-III CLASSIFICATION Cardiovascular Risk HDL > or equal to 60 mg/dL LOW HDL < 40 mg/dL HIGH Performed By: #### E ODALIS, MG, CMP, CBC #### [facility] [address] Serum or plasma total choles terol/high density lipoprotein (HDL) cholesterol mass ratOrdered By: Piyush Pace on 08-07-2023 Cholesterol.total/Cho lesterol in HDL [Mass ratio] 7.8 {ratio} Normal <5.0 [facility] [place] Comment on above: Performed By: #### E ODALIS, MG, CMP, CBC #### [facility] [address] [id number] [place] Thyroid Stim Hormone w/Rflxo n 08-07-2023 Thyroid Stim Hormone w/Rflx 2.11 u[iU]/mL Normal 0.45-5.33 [facility] Comment on above: Performed By: #### E ODALIS, MG, CMP, CBC #### [facility] [address] [place] [address] [place] Thyrotropin [Units/volume] i n Serum or PlasmaOrdered By: Piyush Pace on 08-07-2023 TSH Qn 2.11 m[IU]/L 0.45-5.33 [facility] [place] Triglyceride [Mass/volume] i n Serum or PlasmaOrdered By: Piyush Pace on 08-07-2023 Triglyceride [Mass/Vol] 155 mg/dL High 0-149 [facility] [place] Comment on above: TRIG ATP III CLASSIF ICATIONTRIG less than 150 mg/dL NormalTRIG 150-199 mg/dL Borderline highTRIG 200-500 mg/dL High TRIG greater than 500 mg/dL Very highStandard traceable to the Center for Disease Conrtrol and Prevention (CDC) test method. Vitamin D 25 Hydroxy Totalon 08-07-2023 Vitamin D 25 Hydroxy Total 39.7 ng/mL Normal 30-100 [facility] Comment on above: Result Comment: [place] MIN D STATUS 25([place])VITAMIN D RANGE (ng/mL) Deficient <20 Insufficient 20 to <30 Sufficient 30 to 100 Reference: Tete MF,David NC, Horace COTO, et al. Evaluation,treatment, and prevention of vitamin D deficiency; an Endocrine Society clinical practice guideline. JCEM. 2010; 96(7):1911-30. PERFORMED BY: [place] [address] PATHOLOGIST DIRECTOR OF GLOBAL TALENT LEE CARDOSO M.D. Performed By: #### E ODALIS, MG, CMP, CBC #### [facility] [address] Vitamin D+Metabolites [Mass/ volume] in Serum or PlasmaOrdered By: Piyush Pace on 08-07-2023 Vitamin D+Metabolites [Mass/Vol] 39.7 ng/mL 30-100 [facility] [place] Comment on above: VITAMIN D STATUS 25( [place])VITAMIN D RANGE (ng/mL) Deficient <20 Insufficient 20 to <30Sufficient 30 to 100Reference: Tete MF,David NC, Horace COTO, et al. Evaluation,treatment, and prevention of vitamin D deficiency; an Endocrine Society clinical practice guideline. JCEM. 2010; 96(7):1911-30. CBC w/ Auto Diffon 4 Basophils/100 WBC (Bld) 0.8 % Normal 0.0-2.0 [facility] Comment on above: Order Comment: phleb s [place] and judit attempted to draw and were unsuccessful. called other phlebs to come draw. [id number] 08/06/2023 17:07:15 EDT Performed By: #### 2 [id number] #### [facility] [address] [place] [address] Basophils/Leukocytes Auto (Bld) [Pure # fraction] 0.1 E9/L Normal 0.0-0.2 [facility] Comment on above: Order Comment: phleb s [place] and judit attempted to draw and were unsuccessful. called other phlebs to come draw. [id number] 08/06/2023 17:07:15 EDT Performed By: #### 2 [id number] #### [facility] [address] [place] [address] Eosinophils (Bld) [#/Vol] 0.0 E9/L Normal 0.0-0.5 [facility] Comment on above: Order Comment: phleb s [place] and judit attempted to draw and were unsuccessful. called other phlebs to come draw. [id number] 08/06/2023 17:07:15 EDT Performed By: #### 2 [id number] #### [facility] [address] [place] [address] Eosinophils/100 WBC (Bld) 0.5 % Normal 0.0-8.0 [facility] Comment on above: Order Comment: phleb s [place] and judit attempted to draw and were unsuccessful. called other phlebs to come draw. [facility] 08/06/2023 17:07:15 EDT Performed By: #### 2 [id number] #### [facility] [address] [place] [address] Erythrocyte distribution width (RBC) [Ratio] 14.2 % Normal 10.9-14.2 [facility] Comment on above: Order Comment: phleb s [place] and judit attempted to draw and were unsuccessful. called other phlebs to come draw. [facility] 08/06/2023 17:07:15 EDT Performed By: #### 2 [id number] #### [facility] [address] [place] [address] Hematocrit (Bld) [Volume fraction] 33.1 % Low 34.0-46.0 [facility] Comment on above: Order Comment: phleb s [place] and ujdit attempted to draw and were unsuccessful. called other phlebs to come draw. [facility] 08/06/2023 17:07:15 EDT Performed By: #### 2 [id number] #### [facility] [address] [place] [address] Hemoglobin (Bld) [Mass/Vol] 11.9 g/dL Low 12.0-16.0 [facility] Comment on above: Order Comment: phleb s [place] and judit attempted to draw and were unsuccessful. called other phlebs to come draw. [facility] 08/06/2023 17:07:15 EDT Performed By: #### 2 [id number] #### [facility] [address] [place] [address] Lymphocytes (Bld) [#/Vol] 1.9 E9/L Normal 1.0-4.0 [facility] Comment on above: Order Comment: phleb s [place] and judit attempted to draw and were unsuccessful. called other phlebs to come draw. [facility] 08/06/2023 17:07:15 EDT Performed By: #### 2 [id number] #### [facility] [address] [place] [address] Lymphocytes/100 WBC (Bld) 26.3 % Normal 14.0-50.0 [facility] Comment on above: Order Comment: phleb s [place] and judit attempted to draw and were unsuccessful. called other phlebs to come draw. [facility] 08/06/2023 17:07:15 EDT Performed By: #### 2 [id number] #### [facility] [address] [place] [address] MCH (RBC) [Entitic mass] 35.2 pg High 27.0-34.0 [facility] Comment on above: Order Comment: phleb s [place] and judit attempted to draw and were unsuccessful. called other phlebs to come draw. [facility] 08/06/2023 17:07:15 EDT Performed By: #### 2 [id number] #### [facility] [address] [place] [address] MCHC (RBC) [Mass/Vol] 35.9 g/dL Normal 31.4-36.0 [facility] Comment on above: Order Comment: phleb s [place] and ujdit attempted to draw and were unsuccessful. called other phlebs to come draw. [facility] 08/06/2023 17:07:15 EDT Performed By: #### 2 [id number] #### [facility] [address] [place] [address] MCV (RBC) [Entitic vol] 98.1 fL Normal 80.0-100.0 [facility] Comment on above: Order Comment: phleb s [place] and judit attempted to draw and were unsuccessful. called other phlebs to come draw. [facility] 08/06/2023 17:07:15 EDT Performed By: #### 2 [id number] #### [facility] [address] [place] [address] Monocytes (Bld) [#/Vol] 0.3 E9/L Normal 0.2-1.0 [facility] Comment on above: Order Comment: phleb s [place] and judit attempted to draw and were unsuccessful. called other phlebs to come draw. [facility] 08/06/2023 17:07:15 EDT Performed By: #### 2 [id number] #### [facility] [address] [place] [address] Neutrophils (Bld) [#/Vol] 5.0 E9/L Normal 2.0-7.5 [facility] Comment on above: Order Comment: phleb s [place] and judit attempted to draw and were unsuccessful. called other phlebs to come draw. [id number] 08/06/2023 17:07:15 EDT Performed By: #### 2 [id number] #### [facility] [address] [place] [address] Neutrophils/100 WBC (Bld) 68.1 % Normal 36.0-75.0 [facility] Comment on above: Order Comment: phleb s [place] and judit attempted to draw and were unsuccessful. called other phlebs to come draw. [id number] 08/06/2023 17:07:15 EDT Performed By: #### 2 [id number] #### [facility] [address] [place] [address] Platelet 101.0 E9/L Low 150.0-500.0 [facility] Comment on above: Order Comment: phleb s [place] and judit attempted to draw and were unsuccessful. called other phlebs to come draw. [id number] 08/06/2023 17:07:15 EDT Performed By: #### 2 [id number] #### [facility] [address] [place] [address] Platelet mean volume (Bld) [Entitic vol] 9.4 fL Normal 6.4-10.8 [facility] Comment on above: Order Comment: phleb s [place] and judit attempted to draw and were unsuccessful. called other phlebs to come draw. [id number] 08/06/2023 17:07:15 EDT Performed By: #### 2 [id number] #### [facility] [address] [place] [address] RBC (Bld) [#/Vol] 3.4 E12/L Low 4.3-5.9 [facility] Comment on above: Order Comment: phleb s [place] and judit attempted to draw and were unsuccessful. called other phlebs to come draw. [id number] 08/06/2023 17:07:15 EDT Performed By: #### 2 [id number] #### [facility] [address] [place] [address] WBC corrected for nucl RBC Auto (Bld) [#/Vol] 7.4 E9/L Normal 4.0-11.0 [facility] Comment on above: Order Comment: phleb s [place] and judit attempted to draw and were unsuccessful. called other phlebs to come draw. [id number] 08/06/2023 17:07:15 EDT Performed By: #### 2 [id number] #### [facility] [address] [place] [address] CHEMISTRYOrdered By: SYSTEM SYSTEM on 08-06-2023 Amphetamines Screen method >1000 ng/mL Ql (U) POSITIVE 6 *ABN* (08/06/23 5:34 PM) Invalid Interpretation Code NEGATIVE [facility] Comment on above: Interpretive Data: N egative Cutoff: <1000 ng/mL Barbiturates Screen Ql (U) NEGATIVE 7 (08/06/23 5:34 PM) Normal NEGATIVE [facility] Comment on above: Interpretive Data: N egative Cutoff: <200 ng/mL Benzodiazepines Ql (U) NEGATIVE 1 (08/06/23 5:34 PM) Normal NEGATIVE [facility] Comment on above: Interpretive Data: N egative Cutoff: <200 ng/mL Cannabinoids Screen Ql (U) NEGATIVE 5 (08/06/23 5:34 PM) Normal NEGATIVE [facility] Comment on above: Interpretive Data: N egative Cutoff: <50 ng/mL Cocaine Ql (U) NEGATIVE 2 (08/06/23 5:34 PM) Normal NEGATIVE [facility] Comment on above: Interpretive Data: N egative Cutoff: <300 ng/mL Opiates Screen Ql (U) NEGATIVE 3 (08/06/23 5:34 PM) Normal NEGATIVE [facility] Comment on above: Interpretive Data: N egative Cutoff: <300 ng/mL Phencyclidine Screen method >25 ng/mL Ql (U) NEGATIVE 4 (08/06/23 5:34 PM) Normal NEGATIVE [facility] Comment on above: Interpretive Data: N egative Cutoff: <25 ng/mL These drug screen results are to be used for medical (i.e., treatment) purposes only. Unconfirmed drug screening results must not be used for non-medical purposes (e.g., employment testing, legal testing). U Fentanyl NEGATIVE 8 (08/06/23 5:34 PM) Normal NEGATIVE [facility] Comment on above: Interpretive Data: N egative Cutoff: <5 ng/mL These drug screen results are to be used for medical (i.e., treatment) purposes only. Unconfirmed drug screening results must not be used for non-medical purposes (e.g., employment testing, legal testing). Albumin [Mass/Vol] 3.7 g/dL Normal 3.3 - 5.0 gm/dL [facility] Albumin/Globulin [Mass ratio] 1.2 {ratio} Normal 1.1 - 2.2 [facility] ALP [Catalytic activity/Vol] 98 [iU]/d Normal 21 - 98 Int._Unit/L [facility] ALT No additional P-5'-P [Catalytic activity/Vol] 74 [iU]/d High 6 - 46 Int._Unit/L [facility] Anion gap [Moles/Vol] 10 mmol/L Normal 6 - 16 mEq/L R emisol Chem AST [Catalytic activity/Vol] 114 [iU]/d High 5 - 43 Int._Unit/L [facility] Bilirubin [Mass/Vol] 1.1 mg/dL Normal 0.0 - 1 .1 mg/dL [facility] Calcium [Mass/Vol] 8.5 mg/dL Low 8.9 - 11. 1 mg/dL [facility] Chloride [Moles/Vol] 100 mmol/L Low 101 - 1 11 mmol/L [facility] CO2 [Moles/Vol] 25 mmol/L Normal 21 - 31 mmol/L [facility] Creatinine [Mass/Vol] 0.5 mg/dL Normal 0.5 - 1.3 mg/dL [facility] eGFR 128 mL/min/1.73 m2 Normal >=59mL/mi n/1 .73 m2 [facility] Ethanol Lvl mg/dL Normal <=11mg/dL [facility] Globulin (S) [Mass/Vol] 3.1 g/dL Normal 1.4 - 4.0 gm/dL [facility] Glucose [Mass/Vol] 92 mg/dL Normal 55 - 199 mg/dL [facility] Potassium [Moles/Vol] 3.8 mmol/L Normal 3.5 - 5.3 mmol/L [facility] Protein [Mass/Vol] 6.8 g/dL Normal 6.0 - 7.8 gm/dL [facility] Sodium [Moles/Vol] 131 mmol/L Low 135 - 145 mmol/L [facility] Urea nitrogen [Mass/Vol] 7 mg/dL Normal 5 - 21 mg/dL [facility] Urea nitrogen/Creatinine [Mass ratio] 14 mg/mg Normal 10 - 20 [facility] CMPon 08-06-2023 Albumin [Mass/Vol] 3.7 g/dL Normal 3.3-5.0 [facility] Comment on above: Performed By: #### 2 [id number] #### [facility] [address] [place] [address] Albumin/Globulin (S) [Mass conc ratio] 1.2 Normal 1.1-2.2 [facility] Comment on above: Performed By: #### 2 [id number] #### [facility] [address] [place] [address] ALP [Catalytic activity/Vol] 98 Int._Unit/L Normal 21-98 [facility] Comment on above: Performed By: #### 2 [id number] #### [facility] [address] [place] [address] ALT No additional P-5'-P [Catalytic activity/Vol] 74 Int._Unit/L High 6-46 [facility] Comment on above: Performed By: #### 2 [id number] #### [facility] [address] [place] [address] Anion gap [Moles/Vol] 10 mmol/L Normal 6-16 [facility] Comment on above: Performed By: #### 2 [id number] #### [facility] [address] [place] [address] AST [Catalytic activity/Vol] 114 Int._Unit/L High 5-43 [facility] Comment on above: Performed By: #### 2 [id number] #### [facility] [address] [place] [address] Bilirubin [Mass/Vol] 1.1 mg/dL Normal 0.0-1.1 [facility] Comment on above: Performed By: #### 2 [id number] #### [facility] [address] [place] [address] Calcium [Mass/Vol] 8.5 mg/dL Low 8.9-11.1 [facility] Comment on above: Performed By: #### 2 [id number] #### [facility] [address] [place] [address] Chloride [Moles/Vol] 100 mmol/L Low 101-111 [facility] Comment on above: Performed By: #### 2 [id number] #### [facility] [address] [place] [address] CO2 [Moles/Vol] 25 mmol/L Normal 21-31 [facility] Comment on above: Performed By: #### 2 [id number] #### [facility] [address] [place] [address] Creatinine [Mass/Vol] 0.5 mg/dL Normal 0.5-1.3 [facility] Comment on above: Performed By: #### 2 [id number] #### [facility] [address] [place] [address] Globulin (S) [Mass/Vol] 3.1 g/dL Normal 1.4-4.0 [facility] Comment on above: Performed By: #### 2 [id number] #### [facility] [address] [place] [address] Glucose [Mass/Vol] 92 mg/dL Normal 55-199 [facility] Comment on above: Performed By: #### 2 [id number] #### [facility] [address] [place] [address] Potassium [Moles/Vol] 3.8 mmol/L Normal 3.5-5.3 [facility] Comment on above: Performed By: #### 2 [id number] #### [facility] [address] [place] [address] Protein [Mass/Vol] 6.8 g/dL Normal 6.0-7.8 [facility] Comment on above: Performed By: #### 2 [id number] #### [facility] [address] [place] [address] Sodium [Moles/Vol] 131 mmol/L Low 135-145 [facility] Comment on above: Performed By: #### 2 [id number] #### [facility] [address] [place] [address] Urea nitrogen [Mass/Vol] 7 mg/dL Normal 5-21 [facility] Comment on above: Performed By: #### 2 [id number] #### [facility] [address] [place] [address] Urea nitrogen/Creatinine [Mass ratio] 14 No Units Normal 10-20 [facility] Comment on above: Performed By: #### 2 [id number] #### [facility] [address] [place] [address] Consent for Treatmenton 07-13 Consent for Treatment [id number] F [facility] ED Clinical Summaryon 2023 ED Clinical Summary (Inserted Image. Tracy ble to display) [address] [address] ED Clinical Summary Person Information Name: LYLE BAILEY F[facility] Age: 33 Years : 1990 Sex: Female Language: Citizen Of [place] PCP: Amanda BARRIOS CNP Marital Status: Single Visit Id: Visit Reason: Psychiatric problem; NEW MEDS, MENTAL ISSUE Speciality: Acuity: 3 Enc Type: Emergency Med Service: Emergency Arrival: 08/06/2023 15:46:17 Discharge: 08/06/2023 21:00:00 LOS: 000 05:14 Checkin: 08/06/2023 15:46:17 Checkout: 08/06/2023 21:00:00 [facility] EVENTS: Event Name Event Status Request Date/Time Start Date/Time Complete Date/Time Arrive Complete 08/06/2023 15:46:17 08/06/2023 15:46:17 08/06/2023 15:46:17 Document Home Meds Request 08/06/2023 15:46:17 Triage Complete 08/06/2023 15:46:17 08/06/2023 16:02:59 08/06/2023 16:02:59 No Visitors Request 08/06/2023 15:48:00 Bed Assign Complete 08/06/2023 16:06:55 08/06/2023 16:06:55 08/06/2023 16:06:55 Dr Exam Complete 08/06/2023 16:06:55 08/06/2023 16:09:53 08/06/2023 16:09:53 RN Exam Complete 08/06/2023 16:06:55 08/06/2023 16:41:34 08/06/2023 16:41:34 Registration Complete 08/06/2023 16:09:53 08/06/2023 16:32:14 08/06/2023 16:32:14 Dr Exam Complete 08/06/2023 16:11:48 08/06/2023 16:11:48 08/06/2023 16:11:48 Meds Admin Complete 08/06/2023 16:18:00 08/06/2023 16:24:40 Consult Request 08/06/2023 16:18:00 EKG Complete 08/06/2023 16:18:00 08/06/2023 16:23:59 Pending Labs Complete 08/06/2023 16:18:00 08/06/2023 18:29:39 Lab Complete 08/06/2023 16:18:00 08/06/2023 18:29:39 Urine Collect Complete 08/06/2023 16:18:00 08/06/2023 18:29:39 Patient Care Request 08/06/2023 16:18:00 Reg Complete Request 08/06/2023 16:32:14 Reg Bed Request Complete 08/06/2023 16:32:14 08/06/2023 16:32:14 08/06/2023 16:32:14 Pending Labs Complete 08/06/2023 17:32:15 08/06/2023 17:32:15 08/06/2023 17:54:36 Lab Complete 08/06/2023 17:32:15 08/06/2023 17:32:15 08/06/2023 17:54:36 Pending Labs Complete 08/06/2023 17:32:29 08/06/2023 17:32:29 08/06/2023 17:32:29 Dr Exam Complete 08/06/2023 18:56:05 08/06/2023 18:56:05 08/06/2023 18:56:05 Registration Request 08/06/2023 18:56:05 Meds Admin Complete 08/06/2023 20:14:37 08/06/2023 20:22:59 Patient Care Request 08/06/2023 20:28:55 Transfer Complete 08/06/2023 20:28:55 08/06/2023 21:00:25 08/06/2023 21:00:25 Discharge Complete 08/06/2023 21:00:25 08/06/2023 21:00:25 08/06/2023 21:00:25 ADDRESS: [address] [place] [id number] PHYS DOC NOTES: MEDICAL INFORMATION: Prescriptions Given: Medications to Continue with No Changes Other Medications acetaminophen (acetaminophen 325 mg Tab) 2 Tablets By Mouth every 6 hours as needed Pain. clonidine (cloNIDine 0.1 mg tab) 1 Tablets By Mouth 2 times a day. Refills: 0. fluconazole (Diflucan 150 mg Tab) 1 Tablets By Mouth Once. Refills: 0. gabapentin (gabapentin 800 mg Tab) 1 Tablets By Mouth 3 times a day. 30 day supply. Refills: 0. gabapentin (gabapentin 800 mg Tab) 1 Tablets By Mouth 3 times a day. multivitamin (Therapeutic Multiple Vitamin Tab) By Mouth every day. ondansetron (Zofran ODT 4 mg Tab-Dis) 1 Tablets By Mouth every 8 hours as needed Nausea/Vomiting. Refills: 0. paliperidone (Invega 3 mg oral tablet, extended release) 1 Tablets By Mouth at bedtime. propranolol 40 Milligram 2 times a day. PATIENT EDUCATION INFORMATION: Instructions: Follow up: DIAGNOSIS: 1:Hallucinations [facility] ED Note-Nursingon 08-06-2023 ED Note-Nursing Spoke to Evaristo from [facility]. Informed this RN that she talked to mother and mother stated that pt expressed SI today and wanted to shoot herself with a gun to get the voices to stop. Pt placed under suicidal precautions at this time. Sitter outside room. All belongings removed. [facility] ED Patient Education Noteon 08-06-2023 ED Patient Education Note [facility] ED Patient Summaryon 024 ED Patient Summary (Inserted Image. Tracy ble to display) [place] [id number] Patient Discharge Instructions Person Information Name: LYLE BAILEY Age: 33 Years Arrival Date: 08/06/2023 15:46:17 Discharge Diagnosis: 1:Hallucinations Primary Care Physician: Amanda BARRIOS CNP Provider Information Primary Provider: Eric Forbes DO Advanced Lathe Set Up Operator:Fabricio Gao PA-C The exam and treatment you received in the Emergency Department were for an urgent problem and are not intended as complete care. It is important that you follow up with a doctor, nurse practitioner, or physician?s family services assistant for ongoing care. If your symptoms become worse or you do not improve as expected and you are unable to reach your usual health care provider, you should return to the Emergency Department. We are available 24 hours a day. LYLE BALIEY has been given the following list of patient education materials, prescriptions and follow-up instructions: Follow-up Instructions: In the event that this physician does not participate in your insurance network, please consult with your insurance company to find a nearby participating provider. Patient Education Materials: A MESSAGE TO ALL PATIENTS REGARDING OPIOIDS PRESCRIPTION OPIOIDS: WHAT YOU NEED TO KNOW Prescription opioids can be used to help relieve dzsdhops-yh-tqllcp pain and are often prescribed following a surgery or injury, or for certain health conditions. These medications can be an important part of the treatment but also come with serious risks. It is important to work with your healthcare provider to make sure you are getting the safest, most effective care. WHAT ARE THE RISKS AND SIDE EFFECTS OF OPIOID USE? Prescription opioids carry serious risks of addiction and overdose, especially with prolonged use. An opioid overdose, often marked by slowed breathing, can cause sudden . The use of prescription opioids can have a number of side effects as well, even when taken as directed: ? Tolerance?meaning you might need to take more of the medication for the same pain relief ? Physical dependence?meaning you have symptoms of withdrawal when a medication is stopped ? Increased sensitivity to pain ? Constipation ? Nausea, vomiting, and dry mouth ? Sleepiness and dizziness ? Confusion ? Depression ? Low levels of testosterone that can result in lower sex drive, energy, and strength ? Itching and sweating RISKS ARE GREATER WITH: ? History of drug misuse, substance use disorder, or overdose ? Mental health conditions (such as depression or anxiety) ? Sleep apnea ? Older age (65 years and older) ? Avoid alcohol while taking prescription opioids. Also, unless specifically advised by your health care provider, medications to avoid include: ? Benzodiazepines (such as Xanax or Valium) ? Muscle relaxants (such as Soma or Flexeril) ? Hypnotics (such as Ambien or Lunesta) ? Other prescription opioids KNOW YOUR OPTIONS Talk to your health care provider about ways to manage your pain that don?t involve prescription opioids. Some of these options may actually work better and have fewer risks and side effects. Options may include: ? Pain relievers such as acetaminophen, ibuprofen, and naproxen ? Some medication that are also used for depression or seizures ? Physical therapy and exercise ? Cognitive behavioral therapy, a psychological, goal-directed approach, in which patients learn how to modify physical, behavioral, and emotional triggers of pain and stress. IF YOU ARE PRESCRIBED OPIOIDS FOR PAIN: ? Never take opioids in greater amounts or more often than prescribed. ? Follow up with your primary health care provider. o Work together to create a plan on how to manage your pain. o Talk about ways to help manage your pain that don?t involve prescription opioids. o Talk about any and all concerns and side effects. ? Help prevent misuse and abuse o Never sell or share prescription opioids. o Never use another person?s prescription opioids. ? Store prescription opioids in a secure place and out of reach of others (this may include visitors, children, friends, and family). ? Safely dispose of unused prescription opioids: Find your community drug take-back program or your pharmacy mail-back program, or flush them down the toilet, following guidance from the Food and Drug Administration (www.fda.gov/Drugs/Resou rcesForYou). ? Visit www.cdc.gov/drugoverdose to learn about the risks of opioids abuse and overdose. ? If you believe you may be struggling with addiction, tell your health rn urgent care and ask for guidance or call [facility]?S National Helpline at 0-105-567-KDER. w Source: US Department of Health and Human Services/Center for Disease Control & Prevention [facility] Medications Given: Medication Dose Route (more content not included)... [facility] Ethanolon 08-06-2023 Ethanol Lvl <10 Normal <=11 [facility] Comment on above: Performed By: #### 2 [id number] #### [facility] [address] [place] [address] HEMATOLOGYOrdered By: SYSTEM SYSTEM on 08-06-2023 Basophils/100 WBC (Bld) 0.8 % Normal 0.0 - 2.0 % Remisol Heme Basophils/Leukocytes Auto (Bld) [Pure # fraction] 0.1 E9/L Normal 0.0 - 0.2 E9/L Remisol Heme Eosinophils (Bld) [#/Vol] 0.0 E9/L Normal 0.0 - 0.5 E9/L Remisol Heme Eosinophils/100 WBC (Bld) 0.5 % Normal 0.0 - 8.0 % Remisol Heme Erythrocyte distribution width (RBC) [Ratio] 14.2 % Normal 10.9 - 14.2 % Remisol Heme Hematocrit (Bld) [Volume fraction] 33.1 % Low 34.0 - 46.0 % Remisol Heme Hemoglobin (Bld) [Mass/Vol] 11.9 g/dL Low 12.0 - 16.0 gm/dL Remisol Heme Lymphocytes (Bld) [#/Vol] 1.9 E9/L Normal 1.0 - 4.0 E9/L Remisol Heme Lymphocytes/100 WBC (Bld) 26.3 % Normal 14.0 - 50.0 % Remisol Heme MCH (RBC) [Entitic mass] 35.2 pg High 27.0 - 34.0 pg Remisol Heme MCHC (RBC) [Mass/Vol] 35.9 g/dL Normal 31.4 - 36.0 gm/dL Remisol Heme MCV (RBC) [Entitic vol] 98.1 fL Normal 80.0 - 100.0 fL Remisol Heme Monocytes (Bld) [#/Vol] 0.3 E9/L Normal 0.2 - 1.0 E9/L Remisol Heme Monocytes/100 WBC (Bld) 4.3 % Normal 4.0 - 14.0 % Remisol Heme Neutrophils (Bld) [#/Vol] 5.0 E9/L Normal 2.0 - 7.5 E9/L Remisol Heme Neutrophils/100 WBC (Bld) 68.1 % Normal 36.0 - 75.0 % Remisol Heme Platelet 101.0 E9/L Low 150.0 - 500.0 E9/L Remisol Heme Platelet mean volume (Bld) [Entitic vol] 9.4 fL Normal 6.4 - 10.8 fL Remisol Heme RBC (Bld) [#/Vol] 3.4 E12/L Low 4.3 - 5.9 E12/L Remisol Heme WBC corrected for nucl RBC Auto (Bld) [#/Vol] 7.4 E9/L Normal 4.0 - 11.0 E9/L Remisol Heme Outside Recordson 08-06-2023 Outside Records [id number] FF [facility] Transfer Documentson 024 Transfer Documents [id number] FF [facility] U Drug Screenon 08-06-2023 Amphetamines Screen method >1000 ng/mL Ql (U) Positive Abnormal NEGATIVE [facility] Comment on above: Result Comment: Nega tive Cutoff: <1000 ng/mL Performed By: #### 2 [id number] #### [facility] [address] [place] [address] Barbiturates Screen Ql (U) Negative Normal NEGATIVE [facility] Comment on above: Result Comment: Nega tive Cutoff: <200 ng/mL Performed By: #### 2 [id number] #### [facility] [address] [place] [address] Benzodiazepines Ql (U) Negative Normal NEGATIVE [facility] Comment on above: Result Comment: Nega tive Cutoff: <200 ng/mL Performed By: #### 2 [id number] #### [facility] [address] [place] [address] Cannabinoids Screen Ql (U) Negative Normal NEGATIVE [facility] Comment on above: Result Comment: Nega tive Cutoff: <50 ng/mL Performed By: #### 2 [id number] #### [facility] [address] [place] [address] Cocaine Ql (U) Negative Normal NEGATIVE [facility] Comment on above: Result Comment: Nega tive Cutoff: <300 ng/mL Performed By: #### 2 [id number] #### [facility] [address] [place] [address] Opiates Screen Ql (U) Negative Normal NEGATIVE [facility] Comment on above: Result Comment: Nega tive Cutoff: <300 ng/mL Performed By: #### 2 [id number] #### [facility] [address] [place] [address] Phencyclidine Screen method >25 ng/mL Ql (U) Negative Normal NEGATIVE [facility] Comment on above: Result Comment: Nega tive Cutoff: <25 ng/mL These drug screen results are to be used for medical (i.e., treatment) purposes only. Unconfirmed drug screening results must not be used for non-medical purposes (e.g., employment testing, legal testing). Performed By: #### 2 [id number] #### [facility] [address] [place] [address] U Fentanyl Negative Normal NEGATIVE [facility] Comment on above: Result Comment: Nega tive Cutoff: <5 ng/mL These drug screen results are to be used for medical (i.e., treatment) purposes only. Unconfirmed drug screening results must not be used for non-medical purposes (e.g., employment testing, legal testing). Performed By: #### 2 [id number] #### [facility] [address] [place] [address] Valuables Checkliston 2023 Valuables Checklist [id number] FF [facility] eGFRon 08-06-2023 eGFR 128 mL/min/1.73 m2 Normal >=59 [facility] Comment on above: Order Comment: Order added by Discern Expert. Performed By: #### 1 [id number] #### [facility] [address] [place] [address] C Urineon 07-17-2023 Bacteria identified Cx Nom (U) Microbiology PROCEDURE: Urine Culture [R1] SOURCE: U CleanCatch BODY SITE: COLLECTED DATE/TIME: 07/14/2023 11:20 EDT RECEIVED DATE/TIME: 07/15/2023 12:20 EDT START DATE/TIME: 07/15/2023 12:20 EDT FREE TEXT SOURCE: Mike Spear PA-C, PA-C, Mike Underwood. FINAL REPORTS Final Report [] Verified Date/Time: 07/17/2023 11:13 EDT 500 cfu/ml Mixed skin contaminants Performing Locations R1: This test was performed at: [facility], [address] [place] [address], [id number] , , [facility] Comment on above: Performed By: #### 2 [id number] #### [facility] [address] [place] [address] Chlam/GC/Trich,NAAon 024 C. trachomatis rRNA MOISES+probe Ql (Unsp spec) Negative Invalid Interpretation Code Negative [facility] Comment on above: Performed By: #### 1 [id number] #### [facility] [address] [place] [address] N. gonorrhoeae rRNA MOISES+probe Ql (Unsp spec) Negative Invalid Interpretation Code Negative [facility] Comment on above: Performed By: #### 1 [id number] #### [facility] [address] [place] [address] T. vaginalis rRNA MOISES+probe Ql (Unsp spec) Negative Invalid Interpretation Code Negative [facility] Comment on above: Result Comment: Perf ormed at: =[facility] [address] JESSIKA [place]uns[place] [id number] MD Pete Norman Performed By: #### 1 [id number] #### [facility] [address] [place] [address] Ambulatory Visit Summaryon 0 07-14-2023 Ambulatory Visit Summary LYLE BAILEY :1990 Visit Date:07/14/2023 Ambulatory Visit Instructions Your Diagnosis BMI 29.0-29.9,adult Dysuria Your Care Team Attending Physician - Mike Spear PA-C Primary Care Physician - Amanda BARRIOS CNP This Is Your Medications List acetaminophen (acetaminophen 325 mg Tab) clonidine (cloNIDine 0.1 mg tab) fluconazole (Diflucan 150 mg Tab) gabapentin (gabapentin 800 mg Tab) gabapentin (gabapentin 800 mg Tab) multivitamin (Therapeutic Multiple Vitamin Tab) ondansetron (Zofran ODT 4 mg Tab-Dis) paliperidone (Invega 3 mg oral tablet, extended release) phenazopyridine (Pyridium 100 mg Tab) propranolol Procedures Performed None. Discharge Vitals Temperature (Oral) 36.3 ?C Heart Rate (Peripheral) 71 Blood Pressure 138/88 Height 156 cm Height 61 in Weight 71 kg Weight 156.2 lb BMI 29.17 What to do next You Need to Complete the Following Chlam/GC/Trich,MOISES, Urine, Routine collect, 07/14/23, Order for future visit, Nurse collect, BMI 29.0-29.9,adult [facility] Family Medicine Office/Clini c Noteon 07-14-2023 Family Medicine Office/Clinic Note Chief Complaint dysuria, abdominal pain, swelling HPI Staff 33 year old female presents with dysuria, lower abdominal pain, vaginal burning and swelling was seen here june 16 for same symptoms and was given Flagyl. pt states she was drinking alcohol while taking them and is unsure if that caused symptoms again, also states began sleeping with boyfriend again and he has been cheating on her History of Present Illness I have reviewed and verified the staff HPI to be accurate for this encounter. Portions of this record have been created with voice recognition software. Occasional wrong-word or ?peqpc-c-wvza? substitutions may have occurred due to the inherent limitations of voice recognition software. 33-year-old female presents to [facility] care today with chief complaint of concern for recurrent trichomonas. I saw and treated patient about a month ago in June at that time she had vaginal swabs completed which came back positive for trichomonas as well as bacterial vaginosis. Patient was treated with a 7-day course of Flagyl which she states she had improvement and resolution of symptoms. Patient states she had not had sexual intercourse until about 3 days ago after being treated. States she had unprotected intercourse with the same previous sexual partner in which she developed a burning irritation in the vaginal region again in which she has concern for recurrent trichomonas. She does state burning with urination but denies urgency frequency. States she has had UTIs in the past. She denies any abnormal vaginal discharge but states irritation and some itching. Discussed that at that time she also had bacterial vaginosis in which that same antibiotic also covered for that. Patient does not wish to do any swabs today and wishes just to be treated. She denies any belly pain nausea vomiting diarrhea. Denies any fever chills or weakness. Denies any concern for today. She has no other concerns at this time. Review of Systems PHQ Score Initial Depression Screen Score: 0 SCORE ROS negative unless otherwise stated in HPI. Physical Exam Vitals & Measurements T: 36.3 ?C(Oral) HR: 71(Peripheral) BP: 138/88 SpO2: 98% HT: 61 in HT: 156 cm WT: 71 kg WT: 156.2 lb BMI: 29.17 General: Well developed, well nourished, in no acute distress anxious Eyes: not assessed Ears: not assessed Nose: not addressed Mouth: not assessed Neck: not assessed Lungs: Lung sounds are clear bilaterally. No wheezing rhonchi or crackles on exam. Cardio: S1, S2, regular rhythm. No murmurs gallops or rubs. Abdomen: not assessed Musculoskeletal: not assessed Extremity: not assessed Neurologic: not assessed Skin: not assessed Mental Status: Alert and oriented x3. Normal mood and affect Assessment/Plan Patient declines self swabbing and declines pelvic examination. Patient gave us a urine specimen and which is negative for any urinary tract infection at this time we will send for culture to confirm no bacterial growth. He we will send urine for gonorrhea chlamydia trichomonas testing in which patient agrees and understands plan of care patient would like to be retreated for trichomonas based on recurring symptoms and unprotected sexual intercourse with the same previous sex partner. Patient is treated with Flagyl twice daily x 7 days duration. Will follow-up with gynecology to schedule outpatient follow-up appointments and reevaluation. Patient agrees and understands plan of care 1. Dysuria (R30.0: Dysuria) Please follow-up with your egg and spice mixer in 3 to 5 days. You were seen and evaluated in convenient care today in regards to vaginal irritation discharge discomfort and burning with urination. You had a urinalysis completed which is negative for any acute urinary tract infection we will send for culture to confirm no bacterial growth. He declines self swabbing again and does wish to be treated for possible recurrent trichomonas. Discussed if no self swab I would like to send a urine specimen to confirm recurrent trichomonas. Patient is in agreement with the urine STI testing for gonorrhea chlamydia and trichomonas. Discussed with patient if she continues to have symptoms and testing comes back negative she may also have bacterial vaginosis in which Flagyl would also cover for BV. Patient agrees and understands plan of care will return if needed. Will seek ER for reevaluation for development of any worsening or concerning symptoms. Patient agrees and understands plan of care Ordered: metronidazole, 500 mg = 1 tab(s), Oral, BID, X 7 day(s), # 14 tab(s), Refills(s) 0, Pharmacy: [facility], 156, cm, 07/14/23 11:03:00 EDT, Height/Length Dosing, 71, kg, 07/14/23 11:03:00 EDT, Weight Dosing phenazopyridine, 100 mg = 1 tab(s), Oral, TID, X 3 day(s), # 9 tab(s), Refills(s) 0, Pharmacy: [facility], 156, cm, 07/14/23 11:03:00 EDT, Height/Length Dosing, 71, kg, 07/14/23 11:03:00 EDT, Weight Dosing Chlam/GC/Trich,MOISES Urine Culture Urnls Dip Stick (more content not included)... [facility] Comment on above: Result Comment: Elec tronically Signed By: Rainer HARO, Mike Rushing\.br\Date and Time Signed: 07/14/23 11:56 EDT Patient Educationon 07-14-19 Patient Education Nutrition BMI for Adults What is BMI? Body mass index (BMI) is a number that is calculated from a person's weight and height. BMI can help estimate how much of a person's weight is composed of fat. BMI does not measure body fat directly. Rather, it is an alternative to procedures that [...] weight, or underweight. BMI is useful for: ? Identifying a weight problem that may be related to a medical condition or may increase the risk for medical problems. ? Promoting changes, such as changes in diet and exercise, to help reach a healthy weight. BMI screening can be repeated to see if these changes are working. How is BMI calculated? BMI involves measuring your weight in relation to your height. Both height and weight are measured, and the BMI is calculated from those numbers. This can be done either in Citizen Of [place] or metric measurements. Note that charts and online BMI calculators are available to help you find your BMI quickly and easily without having to do these calculations yourself. To calculate your BMI in [place] ([place] measurements: 1. Measure your weight in pounds (lb). 2. Multiply the number of pounds by 703. ? For example, for a person who weighs 180 lb, multiply that number by 703, which equals 126,540. 3. Measure your height in inches. Then multiply that number by itself to get a measurement called inches squared. ? For example, for a person who is 70 inches tall, the inches squared measurement is 70 inches x 70 inches, which equals 4,900 inches squared. 4. Divide the total from step 2 (number of lb x 703) by the total from step 3 (inches squared): 126,540 ? 4,900 = 25.8. This is your BMI. To calculate your BMI in metric measurements: 1. Measure your weight in kilograms (kg). 2. Measure your height in meters (m). Then multiply that number by itself to get a measurement called meters squared. ? For example, for a person who is 1.75 m tall, the meters squared measurement is 1.75 m x 1.75 m, which is equal to 3.1 meters squared. 3. Divide the number of kilograms (your weight) by the meters squared number. In this example: 70 ? 3.1 = 22.6. This is your BMI. What do the results mean? BMI charts are used to identify whether you are underweight, normal weight, overweight, or obese. The following guidelines will be used: ? Underweight: BMI less than 18.5. ? Normal weight: BMI between 18.5 and 24.9. ? Overweight: BMI between 25 and 29.9. ? Obese: BMI of 30 or above. Keep these notes in mind: ? Weight includes both fat and muscle, so someone with a muscular build, such as an athlete, may have a BMI that is higher than 24.9. In cases like these, BMI is not an accurate measure of body fat. ? To determine if excess body fat is the cause of a BMI of 25 or higher, further assessments may need to be done by a health care provider. ? BMI is usually interpreted in the same way for men and women. Where to find more information For more information about BMI, including tools to quickly calculate your BMI, go to these websites: ? Centers for Disease Control and Prevention: www.cdc.gov ? [place] [employer]: www.heart.org ? National Heart, Lung, and Blood [place]: www.nhlbi.nih.gov Summary ? Body mass index (BMI) is a number that is calculated from a person's weight and height. ? BMI may help estimate how much of a person's weight is composed of fat. BMI can help identify those who may be at higher risk for certain medical problems. ? BMI can be measured using [place] measurements or metric measurements. ? BMI charts are used to identify whether you are underweight, normal weight, overweight, or obese. This information is not intended to replace advice given to you by your health care provider. Make sure you discuss any questions you have with your health care provider. Document Revised: 10/21/2019 Document Reviewed: 08/28/2019 [employer] Patient Education ? 2022 [employer] Pulmonary Medicine Steps to Quit Smoking Smoking tobacco is the leading cause of preventable . It can affect almost every organ in the body. Smoking puts you and those around you at risk for developing many serious chronic diseases. Quitting smoking can be very challenging. Do not get discouraged if you are not successful the first time. Some people need to make many attempts to quit before they achieve long-term success. Do your best to stick to your quit plan, and talk with your health care provider if you have any questions or concerns. How do I get ready to quit? When you decide to quit smoking, create a plan to help you succeed. Before you quit: ? Pick a date to quit. (more content not included)... [facility] Valuables Checkliston 2023 Valuables Checklist [id number] FF [facility] B hCG Qualon 07-05-2023 Beta HCG ( test) Ql Negative [facility] Comment on above: Performed By: #### 2 [id number] #### [facility] [address] [place] [address] CBC w/ Auto Diffon 4 Basophils/100 WBC (Bld) 2.5 % High 0.0-2.0 [facility] Comment on above: Performed By: #### 2 [id number] #### [facility] [address] [place] [address] Basophils/Leukocytes Auto (Bld) [Pure # fraction] 0.2 E9/L Normal 0.0-0.2 [facility] Comment on above: Performed By: #### 2 [id number] #### [facility] [address] [place] [address] Eosinophils (Bld) [#/Vol] 0.0 E9/L Normal 0.0-0.5 [facility] Comment on above: Performed By: #### 2 [id number] #### [facility] [address] [place] [address] Eosinophils/100 WBC (Bld) 0.4 % Normal 0.0-8.0 [facility] Comment on above: Performed By: #### 2 [id number] #### [facility] [address] [place] [address] Erythrocyte distribution width (RBC) [Ratio] 14.0 % Normal 10.9-14.2 [facility] Comment on above: Performed By: #### 2 [id number] #### [facility] [address] [place] [address] Hematocrit (Bld) [Volume fraction] 37.6 % Normal 34.0-46.0 [facility] Comment on above: Performed By: #### 2 [id number] #### [facility] [address] [place] [address] Hemoglobin (Bld) [Mass/Vol] 12.8 g/dL Normal 12.0-16.0 [facility] Comment on above: Performed By: #### 2 [id number] #### [facility] [address] [place] [address] Lymphocytes (Bld) [#/Vol] 2.4 E9/L Normal 1.0-4.0 [facility] Comment on above: Performed By: #### 2 193929 #### [facility] [address] [place] [address] Lymphocytes/100 WBC (Bld) 28.9 % Normal 14.0-50.0 [facility] Comment on above: Performed By: #### 2 [id number] #### [facility] [address] [place] [address] MCH (RBC) [Entitic mass] 33.8 pg Normal 27.0-34.0 [facility] Comment on above: Performed By: #### 2 [id number] #### [facility] [address] [place] [address] MCHC (RBC) [Mass/Vol] 34.2 g/dL Normal 31.4-36.0 [facility] Comment on above: Performed By: #### 2 [id number] #### [facility] [address] [place] [address] MCV (RBC) [Entitic vol] 98.9 fL Normal 80.0-100.0 [facility] Comment on above: Performed By: #### 2 [id number] #### [facility] [address] [place] [address] Monocytes (Bld) [#/Vol] 0.4 E9/L Normal 0.2-1.0 [facility] Comment on above: Performed By: #### 2 [id number] #### [facility] [address] [place] [address] Neutrophils (Bld) [#/Vol] 5.1 E9/L Normal 2.0-7.5 [facility] Comment on above: Performed By: #### 2 [id number] #### [facility] [address] [place] [address] Neutrophils/100 WBC (Bld) 63.2 % Normal 36.0-75.0 [facility] Comment on above: Performed By: #### 2 753162 #### [facility] [address] [place] [address] Platelet mean volume (Bld) [Entitic vol] 9.4 fL Normal 6.4-10.8 [facility] Comment on above: Performed By: #### 2 [id number] #### [facility] [address] [place] [address] Platelets (Bld) [#/Vol] 128.0 E9/L Low 150.0-500.0 [facility] Comment on above: Performed By: #### 2 [id number] #### [facility] [address] [place] [address] RBC (Bld) [#/Vol] 3.8 E12/L Low 4.3-5.9 [facility] Comment on above: Performed By: #### 2 [id number] #### [facility] [address] [place] [address] WBC corrected for nucl RBC Auto (Bld) [#/Vol] 8.1 E9/L Normal 4.0-11.0 [facility] Comment on above: Performed By: #### 2 [id number] #### [facility] [address] [place] [address] CHEMISTRYOrdered By: SYSTEM SYSTEM on 07-05-2023 Amphetamines Screen method >1000 ng/mL Ql (U) NEGATIVE 7 (07/05/23 11:21 AM) Normal NEGATIVE [facility] Comment on above: Interpretive Data: N egative Cutoff: <1000 ng/mL Barbiturates Screen Ql (U) POSITIVE 8, 9 *ABN* (07/05/23 11:21 AM) Invalid Interpretation Code NEGATIVE [facility] Comment on above: Result Comment: Resu lt verified by repeat analysis, Unconfirmed by alternate method No Confirmation Requested by Physician. Called to Chilo Mack in ED at 12:05 on 07/05/23 by cmk. Interpretive Data: N egative Cutoff: <200 ng/mL Benzodiazepines Ql (U) NEGATIVE 1 (07/05/23 11:21 AM) Normal NEGATIVE [facility] Comment on above: Interpretive Data: N egative Cutoff: <200 ng/mL Cannabinoids Screen Ql (U) NEGATIVE 6 (07/05/23 11:21 AM) Normal NEGATIVE [facility] Comment on above: Interpretive Data: N egative Cutoff: <50 ng/mL Cocaine Ql (U) NEGATIVE 2 (07/05/23 11:21 AM) Normal NEGATIVE [facility] Comment on above: Interpretive Data: N egative Cutoff: <300 ng/mL Opiates Screen Ql (U) NEGATIVE 4 (07/05/23 11:21 AM) Normal NEGATIVE [facility] Comment on above: Interpretive Data: N egative Cutoff: <300 ng/mL Phencyclidine Screen method >25 ng/mL Ql (U) NEGATIVE 5 (07/05/23 11:21 AM) Normal NEGATIVE [facility] Comment on above: Interpretive Data: N egative Cutoff: <25 ng/mL These drug screen results are to be used for medical (i.e., treatment) purposes only. Unconfirmed drug screening results must not be used for non-medical purposes (e.g., employment testing, legal testing). U Fentanyl NEGATIVE 11 (07/05/23 11:21 AM) Normal NEGATIVE [facility] Comment on above: Interpretive Data: N egative Cutoff: <5 ng/mL These drug screen results are to be used for medical (i.e., treatment) purposes only. Unconfirmed drug screening results must not be used for non-medical purposes (e.g., employment testing, legal testing). Albumin [Mass/Vol] 4.1 g/dL Normal 3.3 - 5.0 gm/dL [facility] Albumin/Globulin [Mass ratio] 1.1 {ratio} Normal 1.1 - 2.2 [facility] ALP [Catalytic activity/Vol] 111 [iU]/d High 21 - 98 Int._Unit/L [facility] ALT No additional P-5'-P [Catalytic activity/Vol] 66 [iU]/d High 6 - 46 Int._Unit/L [facility] Anion gap [Moles/Vol] 14 mmol/L Normal 6 - 16 mEq/L [facility] AST [Catalytic activity/Vol] 119 [iU]/d High 5 - 43 Int._Unit/L [facility] Bilirubin [Mass/Vol] 0.7 mg/dL Normal 0.0 - 1 .1 mg/dL [facility] Calcium [Mass/Vol] 8.9 mg/dL Normal 8.9 - 11. 1 mg/dL [facility] Chloride [Moles/Vol] 108 mmol/L Normal 101 - 1 11 mmol/L [facility] CO2 [Moles/Vol] 23 mmol/L Normal 21 - 31 mmol/L [facility] Creatinine [Mass/Vol] 0.6 mg/dL Normal 0.5 - 1.3 mg/dL [facility] eGFR 123 mL/min/1.73 m2 Normal >=59mL/mi n/1 .73 m2 [facility] Ethanol Lvl 240 mg/dL Invalid Interpretation Code <=11mg/dL [facility] Comment on above: Result Comment: Crit ical Result Verified by Repeat Analysis Critical Result [id number] Called to and read back by: CHILO MACK at: 07/05/2023 11:45:39 by:CMK Globulin (S) [Mass/Vol] 3.8 g/dL Normal 1.4 - 4.0 gm/dL [facility] Glucose [Mass/Vol] 97 mg/dL Normal 55 - 199 mg/dL [facility] Potassium [Moles/Vol] 4.0 mmol/L Normal 3.5 - 5.3 mmol/L [facility] Protein [Mass/Vol] 7.9 g/dL High 6.0 - 7.8 gm/dL [facility] Sodium [Moles/Vol] 141 mmol/L Normal 135 - 145 mmol/L [facility] Urea nitrogen [Mass/Vol] 4 mg/dL Low 5 - 21 mg/dL [facility] Urea nitrogen/Creatinine [Mass ratio] 7 mg/mg Low 10 - 20 [facility] CMPon 07-05-2023 Albumin [Mass/Vol] 4.1 g/dL Normal 3.3-5.0 [facility] Comment on above: Performed By: #### 2 [id number] #### [facility] [address] [place] [address] Albumin/Globulin (S) [Mass conc ratio] 1.1 Normal 1.1-2.2 [facility] Comment on above: Performed By: #### 2 [id number] #### [facility] [address] [place] [address] ALP [Catalytic activity/Vol] 111 Int._Unit/L High 21-98 [facility] Comment on above: Performed By: #### 2 [id number] #### [facility] [address] [place] [address] ALT No additional P-5'-P [Catalytic activity/Vol] 66 Int._Unit/L High 6-46 [facility] Comment on above: Performed By: #### 2 [id number] #### [facility] [address] [place] [address] Anion gap [Moles/Vol] 14 mmol/L Normal 6-16 [facility] Comment on above: Performed By: #### 2 [id number] #### [facility] [address] [place] [address] AST [Catalytic activity/Vol] 119 Int._Unit/L High 5-43 [facility] Comment on above: Performed By: #### 2 [id number] #### [facility] [address] [place] [address] Bilirubin [Mass/Vol] 0.7 mg/dL Normal 0.0-1.1 [facility] Comment on above: Performed By: #### 2 [id number] #### [facility] [address] [place] [address] Calcium [Mass/Vol] 8.9 mg/dL Normal 8.9-11.1 [facility] Comment on above: Performed By: #### 2 [id number] #### [facility] [address] [place] [address] Chloride [Moles/Vol] 108 mmol/L Normal 101-111 [facility] Comment on above: Performed By: #### 2 [id number] #### [facility] [address] [place] [address] CO2 [Moles/Vol] 23 mmol/L Normal 21-31 [facility] Comment on above: Performed By: #### 2 [id number] #### [facility] [address] [place] [address] Creatinine [Mass/Vol] 0.6 mg/dL Normal 0.5-1.3 [facility] Comment on above: Performed By: #### 2 [id number] #### [facility] [address] [place] [address] Globulin (S) [Mass/Vol] 3.8 g/dL Normal 1.4-4.0 [facility] Comment on above: Performed By: #### 2 [id number] #### [facility] [address] [place] [address] Glucose [Mass/Vol] 97 mg/dL Normal 55-199 [facility] Comment on above: Performed By: #### 2 889353 #### [facility] [address] [place] [address] Potassium [Moles/Vol] 4.0 mmol/L Normal 3.5-5.3 [facility] Comment on above: Performed By: #### 2 [id number] #### [facility] [address] [place] [address] Protein [Mass/Vol] 7.9 g/dL High 6.0-7.8 [facility] Comment on above: Performed By: #### 2 [id number] #### [facility] [address] [place] [address] Sodium [Moles/Vol] 141 mmol/L Normal 135-145 [facility] Comment on above: Performed By: #### 2 510753 #### [facility] [address] [place] [address] Urea nitrogen [Mass/Vol] 4 mg/dL Low 5-21 [facility] Comment on above: Performed By: #### 2 [id number] #### [facility] [address] [place] [address] Urea nitrogen/Creatinine [Mass ratio] 7 No Units Low 10-20 [facility] Comment on above: Performed By: #### 2 [id number] #### [facility] [address] [place] [address] Consent for Treatmenton 06-12 Consent for Treatment [id number] [facility] ED Clinical Summaryon 2023 ED Clinical Summary (Inserted Image. Tracy ble to display) [address] [address] ED Clinical Summary Person Information Name: LYLE BAILEY [facility] Age: 33 Years : 1990 Sex: Female Language: Citizen [place] PCP: Amanda BARRIOS CNP Marital Status: Single Visit Id: Visit Reason: Psychiatric screening exam; Psychiatric problem; HALLUCINATION Speciality: Acuity: 2 Enc Type: Emergency Med Service: Emergency Arrival: 07/05/2023 10:35:06 Discharge: 07/05/2023 22:01:09 LOS: 000 11:26 Checkin: 07/05/2023 10:35:06 Checkout: 07/05/2023 22:01:09 [facility] Type: [facility] EVENTS: Event Name Event Status Request Date/Time Start Date/Time Complete Date/Time Arrive Complete 07/05/2023 10:35:06 07/05/2023 10:35:06 07/05/2023 10:35:06 Document Home Meds Request 07/05/2023 10:35:06 Triage Complete 07/05/2023 10:35:06 07/05/2023 10:44:17 07/05/2023 10:44:17 Bed Assign Complete 07/05/2023 10:37:11 07/05/2023 10:37:11 07/05/2023 10:37:11 Dr Exam Complete 07/05/2023 10:37:11 07/05/2023 10:41:01 07/05/2023 10:41:01 RN Exam Complete 07/05/2023 10:37:11 07/05/2023 11:45:16 07/05/2023 11:45:16 Registration Complete 07/05/2023 10:41:01 07/05/2023 11:17:31 07/05/2023 11:17:31 Consult Request 07/05/2023 10:48:39 EKG Complete 07/05/2023 10:48:39 07/05/2023 11:06:35 Pending Labs Complete 07/05/2023 10:48:39 07/05/2023 12:06:14 Lab Complete 07/05/2023 10:48:39 07/05/2023 12:06:14 Urine Collect Complete 07/05/2023 10:48:39 07/05/2023 12:06:14 Patient Care Request 07/05/2023 10:48:39 Pending Labs Complete 07/05/2023 10:49:07 07/05/2023 11:31:02 Pending Labs Complete 07/05/2023 11:06:05 07/05/2023 11:06:05 07/05/2023 11:41:03 Lab Complete 07/05/2023 11:06:05 07/05/2023 11:06:05 07/05/2023 11:41:03 Reg Complete Request 07/05/2023 11:17:31 Reg Bed Request Complete 07/05/2023 11:17:31 07/05/2023 11:17:31 07/05/2023 11:17:31 Meds Admin Complete 07/05/2023 15:11:16 07/05/2023 15:19:52 Meds Admin Cancel 07/05/2023 15:53:00 07/05/2023 15:53:37 Meds Admin Request 07/05/2023 15:53:53 Dr Exam Complete 07/05/2023 19:03:10 07/05/2023 19:03:10 07/05/2023 19:03:10 Registration Request 07/05/2023 19:03:10 Patient Care Request 07/05/2023 21:11:55 Transfer Complete 07/05/2023 21:11:55 07/05/2023 22:01:40 07/05/2023 22:01:40 Discharge Complete 07/05/2023 22:01:40 07/05/2023 22:01:40 07/05/2023 22:01:40 ADDRESS: [address] [place] [id number] PHYS DOC NOTES: Addendum by Kerry Linton DO on July 05, 2023 20:54:30 EDT MEDICAL INFORMATION: Prescriptions Given: Medications to Continue with No Changes Other Medications acetaminophen (acetaminophen 325 mg Tab) 2 Tablets By Mouth every 6 hours as needed Pain. clonidine (cloNIDine 0.1 mg tab) 1 Tablets By Mouth 2 times a day. Refills: 0. fluconazole (Diflucan 150 mg Tab) 1 Tablets By Mouth Once. Refills: 0. gabapentin (gabapentin 800 mg Tab) 1 Tablets By Mouth 3 times a day. 30 day supply. Refills: 0. gabapentin (gabapentin 800 mg Tab) 1 Tablets By Mouth 3 times a day. multivitamin (Therapeutic Multiple Vitamin Tab) By Mouth every day. ondansetron (Zofran ODT 4 mg Tab-Dis) 1 Tablets By Mouth every 8 hours as needed Nausea/Vomiting. Refills: 0. paliperidone (Invega 3 mg oral tablet, extended release) 1 Tablets By Mouth at bedtime. propranolol 40 Milligram 2 times a day. PATIENT EDUCATION INFORMATION: Instructions: Follow up: DIAGNOSIS: Acute alcohol intoxication; Behavior concern in adult [facility] ED Note-Nursingon 07-05-2023 ED Note-Nursing [facility] arrives to transport pt to [facility]. attempting to call report to [facility] at this time [facility] ED Note-Physicianon 07-05-19 ED Note-Physician Basic Information Time Seen: Isai Hall DO 07/05/2023 10:41 Chief Complaint pt presents via [facility] with audible and visible hallucinations. pt reports not taking any of their medications. denies SI/HI History of Present Illness 33-year-old female to the emergency department with chief complaint of hallucinations. Patient's sister called EMS to her home today after she was reported to be having both audible and visual hallucinations. EMS also reports that she may have made a passive threat about ending it all . Patient denies any hallucinations. She denies any SI or HI. She reports her sister is just upset because she was drinking again. Patient reports she had 2 beers this morning. Review of Systems A 10 point review of systems is negative except as noted above. Medical and Surgical History: Reviewed and noted Social history: Lives at home Tobacco: Denies Physical Exam Vitals & Measurements T: 37.1 ?C(Oral) HR: 105(Peripheral) RR: 20 BP: 145/103 SpO2: 97% HT: 156 cm WT: 72 kg BMI: 29.59 VITALS: I have reviewed the triage vital signs. GENERAL: Well developed, well appearing adult in no acute distress. NEURO: Alert and oriented. Moves all extremities. Face is symmetric and expressive. EYES: PERRL. No scleral icterus or conjunctival injection. No discharge. HENT: Normocephalic, atraumatic. Hearing is grossly intact. Nares grossly patent and without discharge. Mucous membranes moist. NECK: No JVD. Patient moves neck without restriction. CARDIO: Rhythm regular. Normal rate. No murmur, rub, or gallop. Pulses equal bilaterally in the upper and lower extremity. No lower extremity edema. PULM: Lungs clear to auscultation in all tejeda. No wheezes, rales, or rhonchi. No conversational dyspnea. No splinting, stridor, or accessory muscle use. GI/: Abdomen is soft and non-tender. Normoactive bowel sounds. EXTREMITIES: Symmetric muscle bulk. No joint swelling. No clubbing, cyanosis, or deformity. SKIN: Warm and dry. Normal turgor. No rash or lesions appreciated. PSYCH: Mildly agitated, labile affect Procedure Critical Care Procedure Note Authorized and Performed by: Isai Hall DO Total critical care time: 35 min Due to a high probability of clinically significant, life threatening deterioration, the patient required my highest level of preparedness to intervene emergently and I personally spent this critical care time directly and personally managing the patient. This critical care time included obtaining a history; examining the patient; pulse oximetry; ordering and review of studies; arranging urgent treatment with development of a management plan; evaluation of patient's response to treatment; frequent reassessment; and, discussions with other providers. This critical care time was performed to assess and manage the high probability of imminent, life-threatening deterioration that could result in multi-organ failure. It was exclusive of separately billable procedures and treating other patients and teaching time. Please see MDM section and the rest of the note for further information on patient assessment and treatment. Medical Decision Making 33-year-old female to the emergency department with chief complaint of hallucinations, concern to family member. Vital stable, the patient is afebrile. She ambulates without difficulty. She has no focal neurologic deficits. She adamantly denies any hallucinations, SI/HI. Patient is well-known to this department. Medical screening labs were ordered. Will consult [facility] for further evaluation. Patient is medically cleared for psychiatric placement. A pink slip was placed and the patient was attempting to leave. She required a forced med hold. Care was signed out to Dr. Linton with placement pending. 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) Orders: Beta hCG Qual CBC w/ Auto Diff Communication Order Comprehensive Metabolic Panel Consult to Mental Health Drug Screen Urine ECG 12 Lead Adult eGFR Ethanol Level UA with Cult Rflx Disposition Plan Patient Discharge Condition Stable Discharge Prescription List Prescriptions No active prescription medications Follow-up No qualifying data available Problem List/Past Medical History Ongoing Alcohol abuse Bipolar depression BMI 29.0-29.9,adult Dysuria Hepatitis B Hepatitis C History of drug abuse Hyperhidrosis Lower extremity neuropathy Overweight Smoker Sore throat STD exposure UTI (urinary tract infection), uncomplicated Historical Group B streptococcus Smoker.. Yeast vaginitis Procedure/Surgical History None. Medications Inpatient No active inpatient medications Home acetaminophen 325 mg Tab, 650 mg= 2 tab(s), Oral, q6hr, PRN cloNIDine 0.1 mg tab, 0.1 mg= 1 tab(s), Oral, BID Diflucan 150 mg (more content not included)... [facility] Comment on above: Result Comment: Elec tronically Signed By: Kerry Linton DO\.br\Date and Time Signed: 07/05/23 20:54 EDT ED Patient Education Noteon 07-05-2023 ED Patient Education Note [facility] ED Patient Summaryon 024 ED Patient Summary (Inserted Image. Tracy ble to display) [place] [id number] Patient Discharge Instructions Person Information Name: LYLE BAILEY Age: 33 Years Arrival Date: 07/05/2023 10:35:06 Discharge Diagnosis: Acute alcohol intoxication; Behavior concern in adult Primary Care Physician: Amanda BARRIOS CNP Provider Information Primary Provider: Isai Hall DO Advanced Lathe Set Up Operator:None The exam and treatment you received in the Emergency Department were for an urgent problem and are not intended as complete care. It is important that you follow up with a doctor, nurse practitioner, or physician?s family services assistant for ongoing care. If your symptoms become worse or you do not improve as expected and you are unable to reach your usual health care provider, you should return to the Emergency Department. We are available 24 hours a day. LYLE BAILEY has been given the following list of patient education materials, prescriptions and follow-up instructions: Follow-up Instructions: In the event that this physician does not participate in your insurance network, please consult with your insurance company to find a nearby participating provider. Patient Education Materials: A MESSAGE TO ALL PATIENTS REGARDING OPIOIDS PRESCRIPTION OPIOIDS: WHAT YOU NEED TO KNOW Prescription opioids can be used to help relieve opkdsxlr-dn-rdssyo pain and are often prescribed following a surgery or injury, or for certain health conditions. These medications can be an important part of the treatment but also come with serious risks. It is important to work with your healthcare provider to make sure you are getting the safest, most effective care. WHAT ARE THE RISKS AND SIDE EFFECTS OF OPIOID USE? Prescription opioids carry serious risks of addiction and overdose, especially with prolonged use. An opioid overdose, often marked by slowed breathing, can cause sudden . The use of prescription opioids can have a number of side effects as well, even when taken as directed: ? Tolerance?meaning you might need to take more of the medication for the same pain relief ? Physical dependence?meaning you have symptoms of withdrawal when a medication is stopped ? Increased sensitivity to pain ? Constipation ? Nausea, vomiting, and dry mouth ? Sleepiness and dizziness ? Confusion ? Depression ? Low levels of testosterone that can result in lower sex drive, energy, and strength ? Itching and sweating RISKS ARE GREATER WITH: ? History of drug misuse, substance use disorder, or overdose ? Mental health conditions (such as depression or anxiety) ? Sleep apnea ? Older age (65 years and older) ? Avoid alcohol while taking prescription opioids. Also, unless specifically advised by your health care provider, medications to avoid include: ? Benzodiazepines (such as Xanax or Valium) ? Muscle relaxants (such as Soma or Flexeril) ? Hypnotics (such as Ambien or Lunesta) ? Other prescription opioids KNOW YOUR OPTIONS Talk to your health care provider about ways to manage your pain that don?t involve prescription opioids. Some of these options may actually work better and have fewer risks and side effects. Options may include: ? Pain relievers such as acetaminophen, ibuprofen, and naproxen ? Some medication that are also used for depression or seizures ? Physical therapy and exercise ? Cognitive behavioral therapy, a psychological, goal-directed approach, in which patients learn how to modify physical, behavioral, and emotional triggers of pain and stress. IF YOU ARE PRESCRIBED OPIOIDS FOR PAIN: ? Never take opioids in greater amounts or more often than prescribed. ? Follow up with your primary health care provider. o Work together to create a plan on how to manage your pain. o Talk about ways to help manage your pain that don?t involve prescription opioids. o Talk about any and all concerns and side effects. ? Help prevent misuse and abuse o Never sell or share prescription opioids. o Never use another person?s prescription opioids. ? Store prescription opioids in a secure place and out of reach of others (this may include visitors, children, friends, and family). ? Safely dispose of unused prescription opioids: Find your community drug take-back program or your pharmacy mail-back program, or flush them down the toilet, following guidance from the Food and Drug Administration (www.fda.gov/Drugs/Resou rcesForYou). ? Visit www.cdc.gov/drugoverdose to learn about the risks of opioids abuse and overdose. ? If you believe you may be struggling with addiction, tell your health rn urgent care and ask for guidance or call [facility]?S National Helpline at 1-832-900-LYVY. v Source: [place] Department of Health and Human Services/Center for Disease Control & Prevention [facility] Medications Given: Me (more content not included)... Normal [facility] Ethanolon 07-05-2023 Ethanol Lvl 240 mg/dL Abnormal <=11 [facility] Comment on above: Result Comment: Crit ical Result Verified by Repeat Analysis Critical Result [id number] Called to and read back by: CHILO MACK at: 07/05/2023 11:45:39 by:CALLIE Performed By: #### 2 [id number] #### [facility] [address] [place] [address] HEMATOLOGYOrdered By: SYSTEM SYSTEM on 07-05-2023 Basophils/100 WBC (Bld) 2.5 % High 0.0 - 2.0 % [facility] Basophils/Leukocytes Auto (Bld) [Pure # fraction] 0.2 E9/L Normal 0.0 - 0.2 E9/L [facility] Eosinophils (Bld) [#/Vol] 0.0 E9/L Normal 0.0 - 0.5 E9/L [facility] Eosinophils/100 WBC (Bld) 0.4 % Normal 0.0 - 8.0 % [facility] Erythrocyte distribution width (RBC) [Ratio] 14.0 % Normal 10.9 - 14.2 % [facility] Hematocrit (Bld) [Volume fraction] 37.6 % Normal 34.0 - 46.0 % [facility] Hemoglobin (Bld) [Mass/Vol] 12.8 g/dL Normal 12.0 - 16.0 gm/dL [facility] Lymphocytes (Bld) [#/Vol] 2.4 E9/L Normal 1.0 - 4.0 E9/L [facility] Lymphocytes/100 WBC (Bld) 28.9 % Normal 14.0 - 50.0 % [facility] MCH (RBC) [Entitic mass] 33.8 pg Normal 27.0 - 34.0 pg [facility] MCHC (RBC) [Mass/Vol] 34.2 g/dL Normal 31.4 - 36.0 gm/dL [facility] MCV (RBC) [Entitic vol] 98.9 fL Normal 80.0 - 100.0 fL [facility] Monocytes (Bld) [#/Vol] 0.4 E9/L Normal 0.2 - 1.0 E9/L [facility] Monocytes/100 WBC (Bld) 5.0 % Normal 4.0 - 14.0 % [facility] Neutrophils (Bld) [#/Vol] 5.1 E9/L Normal 2.0 - 7.5 E9/L [facility] Neutrophils/100 WBC (Bld) 63.2 % Normal 36.0 - 75.0 % [facility] Platelet mean volume (Bld) [Entitic vol] 9.4 fL Normal 6.4 - 10.8 fL [facility] Platelets (Bld) [#/Vol] 128.0 E9/L Low 150.0 - 500.0 E9/L [facility] RBC (Bld) [#/Vol] 3.8 E12/L Low 4.3 - 5.9 E12/L [facility] WBC corrected for nucl RBC Auto (Bld) [#/Vol] 8.1 E9/L Normal 4.0 - 11.0 E9/L [facility] Outside Recordson 07-05-2023 Outside Records [id number] FF Normal [facility] SEROLOGYOrdered By: Monica Earl on 07-05-2023 Beta HCG ( test) Ql Negative (07/05/23 11:03 AM) Normal [facility] [place] Man Sero Transfer Documentson 024 Transfer Documents [id number] FF Normal [facility] U Drug Screenon 07-05-2023 Amphetamines Screen method >1000 ng/mL Ql (U) Negative Normal NEGATIVE [facility] Comment on above: Result Comment: Nega tive Cutoff: <1000 ng/mL Performed By: #### 2 [id number] #### [facility] [address] [place] [address] Barbiturates Screen Ql (U) Positive Abnormal NEGATIVE [facility] Comment on above: Result Comment: Resu lt verified by repeat analysis, Unconfirmed by alternate method No Confirmation Requested by Physician. Called to Chilo Mack in ED at 12:05 on 07/05/23 by [email or web address]. Negative Cutoff: <200 ng/mL Performed By: #### 2 [id number] #### [facility] [address] [place] [address] Benzodiazepines Ql (U) Negative Normal NEGATIVE [facility] Comment on above: Result Comment: Nega tive Cutoff: <200 ng/mL Performed By: #### 2 [id number] #### [facility] [address] [place] [address] Cannabinoids Screen Ql (U) Negative Normal NEGATIVE [facility] Comment on above: Result Comment: Nega tive Cutoff: <50 ng/mL Performed By: #### 2 [id number] #### [facility] [address] [place] [address] Cocaine Ql (U) Negative Normal NEGATIVE [facility] Comment on above: Result Comment: Nega tive Cutoff: <300 ng/mL Performed By: #### 2 [id number] #### [facility] [address] [place] [address] Opiates Screen Ql (U) Negative Normal NEGATIVE [facility] Comment on above: Result Comment: Nega tive Cutoff: <300 ng/mL Performed By: #### 2 [id number] #### [facility] [address] [place] [address] Phencyclidine Screen method >25 ng/mL Ql (U) Negative Normal NEGATIVE [facility] Comment on above: Result Comment: Nega tive Cutoff: <25 ng/mL These drug screen results are to be used for medical (i.e., treatment) purposes only. Unconfirmed drug screening results must not be used for non-medical purposes (e.g., employment testing, legal testing). Performed By: #### 2 [id number] #### [facility] [address] [place] [address] U Fentanyl Negative Normal NEGATIVE [facility] Comment on above: Result Comment: Nega tive Cutoff: <5 ng/mL These drug screen results are to be used for medical (i.e., treatment) purposes only. Unconfirmed drug screening results must not be used for non-medical purposes (e.g., employment testing, legal testing). Performed By: #### 2 [id number] #### [facility] [address] [place] [address] UA with Cult Rflxon 07-05-19 24 Bilirubin Ql (U) Negative Normal Negative [facility] Comment on above: Performed By: #### 4 [id number] #### [facility] [address] [place] [address] Clarity (U) Clear Normal Clear [facility] Comment on above: Performed By: #### 4 [id number] #### [facility] [address] [place] [address] Color (U) Yellow Normal Yellow [facility] Comment on above: Result Comment: Micr oscopic readings are only performed on those samples that meet specific criteria set forth by [facility]. Performed By: #### 4 [id number] #### [facility] [address] [place] [address] Glucose Ql (U) Negative Normal Negative [facility] Comment on above: Performed By: #### 4 [id number] #### [facility] [address] [place] [address] Hemoglobin Auto test strip (U) [Mass/Vol] Negative Normal Negative [facility] Comment on above: Performed By: #### 4 [id number] #### [facility] [address] [place] [address] Ketones Auto test strip Ql (U) Negative Normal Negative [facility] Comment on above: Performed By: #### 4 [id number] #### [facility] [address] [place] [address] Leukocyte esterase Auto test strip Ql (U) Negative Normal Negative [facility] Comment on above: Performed By: #### 4 [id number] #### [facility] [address] [place] [address] Nitrite Auto test strip Ql (U) Negative Normal Negative [facility] Comment on above: Performed By: #### 4 [id number] #### [facility] [address] [place] [address] pH (U) 7.0 [pH] Invalid Interpretation Code 5.0-9.0 [facility] Comment on above: Performed By: #### 4 [id number] #### [facility] [address] [place] [address] Protein Ql (U) Negative Normal Negative [facility] Comment on above: Performed By: #### 4 [id number] #### [facility] [address] [place] [address] Specific gravity (U) [Rel density] 1.012 Invalid Interpretation Code 1.005-1.030 [facility] Comment on above: Performed By: #### 4 [id number] #### [facility] [address] [place] [address] Urobilinogen (U) [Mass/Vol] 4 mg/dL Abnormal Negative [facility] Comment on above: Performed By: #### 4 [id number] #### [facility] [address] [place] [address] Type of Urine collection method Clean Catch Normal [facility] Comment on above: Performed By: #### 4 [id number] #### [facility] [address] [place] [address] URINALYSISOrdered By: SYSTEM SYSTEM on 07-05-2023 Bilirubin Ql (U) Negative Normal Negativemg/ d L [facility] [place] UA Auto SS Clarity (U) Clear (07/05/23 11:21 AM) Normal Clear [facility] UA Auto SS Color (U) Yellow 3 (07/05/23 11:21 AM) Normal Yellow [facility] UA Auto SS Comment on above: Interpretive Data: M icroscopic readings are only performed on those samples that meet specific criteria set forth by [facility]. Glucose Ql (U) Negative Normal Negativemg/d L [facility] UA Auto SS Hemoglobin Auto test strip (U) [Mass/Vol] Negative Normal Negativemg/d L [facility] UA Auto SS Ketones Auto test strip Ql (U) Negative Normal Negativemg/d L [facility] UA Auto SS Leukocyte esterase Auto test strip Ql (U) Negative Normal NegativeLeu/ uL [facility] UA Auto SS Nitrite Auto test strip Ql (U) Negative Normal Negativemg/d L [facility] UA Auto SS pH (U) 7.0 *NA* (07/05/23 11:21 AM) Invalid Interpretation Code 5.0 - 9.0 [facility] UA Auto SS Protein Ql (U) Negative Normal Negativemg/d L [facility] UA Auto SS Specific gravity (U) [Rel density] 1.012 *NA* (07/05/23 11:21 AM) Invalid Interpretation Code 1.005 - 1.030 [facility] UA Auto SS Urobilinogen (U) [Mass/Vol] 4 mg/dL Invalid Interpretation Code Negativemg/d L [facility] UA Auto SS URINALYSISOrdered By: Isai Hall on 07-05-2023 UA Spec Desc Clean Catch (07/05/23 11:21 AM) Normal [facility] UA Auto SS eGFRon 07-05-2023 eGFR 123 mL/min/1.73 m2 Normal >=59 [facility] Comment on above: Order Comment: Order added by Discern Expert. Performed By: #### 1 [id number] #### [facility] [address] [place] [address] BMPon 07-03-2023 Anion gap [Moles/Vol] 15 mmol/L Normal 6-16 [facility] Comment on above: Performed By: #### 2 [id number] #### [facility] [address] [place] [address] Calcium [Mass/Vol] 9.3 mg/dL Normal 8.9-11.1 [facility] Comment on above: Performed By: #### 2 [id number] #### [facility] [address] [place] [address] Chloride [Moles/Vol] 99 mmol/L Low 101-111 [facility] Comment on above: Performed By: #### 2 [id number] #### [facility] [address] [place] [address] CO2 [Moles/Vol] 24 mmol/L Normal 21-31 [facility] Comment on above: Performed By: #### 2 [id number] #### [facility] [address] [place] [address] Creatinine [Mass/Vol] 0.6 mg/dL Normal 0.5-1.3 [facility] Comment on above: Performed By: #### 2 [id number] #### [facility] [address] [place] [address] Glucose [Mass/Vol] 92 mg/dL Normal 55-199 [facility] Comment on above: Performed By: #### 2 [id number] #### [facility] [address] [place] [address] Potassium [Moles/Vol] 3.9 mmol/L Normal 3.5-5.3 [facility] Comment on above: Performed By: #### 2 [id number] #### [facility] [address] [place] [address] Sodium [Moles/Vol] 134 mmol/L Low 135-145 [facility] Comment on above: Performed By: #### 2 [id number] #### [facility] [address] [place] [address] Urea nitrogen [Mass/Vol] 3 mg/dL Low 5-21 [facility] Comment on above: Performed By: #### 2 [id number] #### [facility] [address] [place] [address] Urea nitrogen/Creatinine [Mass ratio] 5 No Units Low 10-20 [facility] Comment on above: Performed By: #### 2 [id number] #### [facility] [address] [place] [address] CBC w/ Auto Diffon 4 Basophils/100 WBC (Bld) 0.3 % Normal 0.0-2.0 [facility] Comment on above: Performed By: #### 2 [id number] #### [facility] [address] [place] [address] Basophils/Leukocytes Auto (Bld) [Pure # fraction] 0.0 E9/L Normal 0.0-0.2 [facility] Comment on above: Performed By: #### 2 [id number] #### [facility] [address] [place] [address] Eosinophils (Bld) [#/Vol] 0.1 E9/L Normal 0.0-0.5 [facility] Comment on above: Performed By: #### 2 [id number] #### [facility] [address] [place] [address]67 Eosinophils/100 WBC (Bld) 1.5 % Normal 0.0-8.0 [facility] Comment on above: Performed By: #### 2 [id number] #### [facility] [address] [place] [address] Erythrocyte distribution width (RBC) [Ratio] 14.0 % Normal 10.9-14.2 [facility] Comment on above: Performed By: #### 2 [id number] #### [facility] [address] [place] [address] Hematocrit (Bld) [Volume fraction] 39.3 % Normal 34.0-46.0 [facility] Comment on above: Performed By: #### 2 [id number] #### [facility] [address] [place] [address] Hemoglobin (Bld) [Mass/Vol] 13.2 g/dL Normal 12.0-16.0 [facility] Comment on above: Performed By: #### 2 [id number] #### [facility] [address] [place] [address] Lymphocytes (Bld) [#/Vol] 1.6 E9/L Normal 1.0-4.0 [facility] Comment on above: Performed By: #### 2 [id number] #### [facility] [address] [place] [address] Lymphocytes/100 WBC (Bld) 33.5 % Normal 14.0-50.0 [facility] Comment on above: Performed By: #### 2 [id number] #### [facility] [address] [place] [address] MCH (RBC) [Entitic mass] 33.7 pg Normal 27.0-34.0 [facility] Comment on above: Performed By: #### 2 [id number] #### [facility] [address] [place] [address] MCHC (RBC) [Mass/Vol] 33.5 g/dL Normal 31.4-36.0 [facility] Comment on above: Performed By: #### 2 [id number] #### [facility] [address] [place] [address]67[address] MCV (RBC) [Entitic vol] 100.6 fL High 80.0-100.0 [facility] Comment on above: Performed By: #### 2 [id number] #### [facility] [address] [place] [address] Monocytes (Bld) [#/Vol] 0.2 E9/L Normal 0.2-1.0 [facility] Comment on above: Performed By: #### 2 [id number] #### [facility] [address] [place] [address] Neutrophils (Bld) [#/Vol] 2.8 E9/L Normal 2.0-7.5 [facility] Comment on above: Performed By: #### 2 [id number] #### [facility] [address] [place] [address] Neutrophils/100 WBC (Bld) 59.5 % Normal 36.0-75.0 [facility] Comment on above: Performed By: #### 2 [id number] #### [facility] [address] [place] [address] Platelet 126.0 E9/L Low 150.0-500.0 [facility] Comment on above: Performed By: #### 2 [id number] #### [facility] [address] [place] [address] Platelet mean volume (Bld) [Entitic vol] 8.9 fL Normal 6.4-10.8 [facility] Comment on above: Performed By: #### 2 [id number] #### [facility] [address] [place] [address] RBC (Bld) [#/Vol] 3.9 E12/L Low 4.3-5.9 [facility] Comment on above: Performed By: #### 2 [id number] #### [facility] [address] [place] [address] WBC corrected for nucl RBC Auto (Bld) [#/Vol] 4.7 E9/L Normal 4.0-11.0 [facility] Comment on above: Performed By: #### 2 [id number] #### [facility] [address] [place] [address] CHEMISTRYOrdered By: SYSTEM SYSTEM on 07-03-2023 Amphetamines Screen method >1000 ng/mL Ql (U) NEGATIVE 6 (07/03/23 9:22 AM) Normal NEGATIVE [facility] Comment on above: Interpretive Data: N egative Cutoff: <1000 ng/mL Barbiturates Screen Ql (U) NEGATIVE 7 (07/03/23 9:22 AM) Normal NEGATIVE [facility] Comment on above: Interpretive Data: N egative Cutoff: <200 ng/mL Benzodiazepines Ql (U) NEGATIVE 1 (07/03/23 9:22 AM) Normal NEGATIVE [facility] Comment on above: Interpretive Data: N egative Cutoff: <200 ng/mL Cannabinoids Screen Ql (U) NEGATIVE 5 (07/03/23 9:22 AM) Normal NEGATIVE [facility] Comment on above: Interpretive Data: N egative Cutoff: <50 ng/mL Cocaine Ql (U) NEGATIVE 2 (07/03/23 9:22 AM) Normal NEGATIVE [facility] Comment on above: Interpretive Data: N egative Cutoff: <300 ng/mL Opiates Screen Ql (U) NEGATIVE 3 (07/03/23 9:22 AM) Normal NEGATIVE [facility] Comment on above: Interpretive Data: N egative Cutoff: <300 ng/mL Phencyclidine Screen method >25 ng/mL Ql (U) NEGATIVE 4 (07/03/23 9:22 AM) Normal NEGATIVE [facility] Comment on above: Interpretive Data: N egative Cutoff: <25 ng/mL These drug screen results are to be used for medical (i.e., treatment) purposes only. Unconfirmed drug screening results must not be used for non-medical purposes (e.g., employment testing, legal testing). U Fentanyl POSITIVE 9, 10 *ABN* (07/03/23 9:22 AM) Invalid Interpretation Code NEGATIVE [facility] Comment on above: Result Comment: No C onfirmation Requested by Physician Unconfirmed by an Alternate Method Result Verified by Repeat Analysis called to JORGE/ Nicholas Bahena Interpretive Data: N egative Cutoff: <5 ng/mL These drug screen results are to be used for medical (i.e., treatment) purposes only. Unconfirmed drug screening results must not be used for non-medical purposes (e.g., employment testing, legal testing). CHEMISTRYOrdered By: Lab ROP User on 07-03-2023 Glucose [Mass/Vol] 109 mg/dL High 55 - 99 mg/dL [facility] [place] POC Subsection Comment on above: Result Comment: Seema bo Meter POC Device SN [id number] 1 Invalid Interpretation Code [facility] [place] POC Subsection POC User ID [id number] 1 Invalid Interpretation Code [facility] [place] POC Subsection POC Username HUA BETTS Invalid Interpretation Code [facility] [place] POC Subsection CHEMISTRYOrdered By: Paty Clark on 07-03-2023 Albumin [Mass/Vol] 4.1 g/dL Normal 3.3 - 5.0 gm/dL [facility] [place] Chem S Albumin/Globulin [Mass ratio] 1.2 {ratio} Normal 1.1 - 2.2 [facility] [place] Chem S ALP [Catalytic activity/Vol] 105 [iU]/d High 21 - 98 Int._Unit/L [facility] [place] Chem S ALT No additional P-5'-P [Catalytic activity/Vol] 86 [iU]/d High 6 - 46 Int._Unit/L [facility] [place] Chem S Anion gap [Moles/Vol] 15 mmol/L Normal 6 - 16 mEq/L F [facility] Chem S AST [Catalytic activity/Vol] 132 [iU]/d High 5 - 43 Int._Unit/L [facility] [place] Chem S Bilirubin [Mass/Vol] 0.9 mg/dL Normal 0.0 - 1 .1 mg/dL [facility] [place] Chem S Bilirubin.direct [Mass/Vol] 0.3 mg/dL Normal 0.0 - 0.4 mg/dL [facility] [place] Chem S Bilirubin.indirect [Mass or moles/Vol] 0.6 mg/dL Normal 0.1 - 0.9 mg/dL [facility] [place] Chem S Calcium [Mass/Vol] 9.3 mg/dL Normal 8.9 - 11. 1 mg/dL [facility] [place] Chem S Chloride [Moles/Vol] 99 mmol/L Low 101 - 1 11 mmol/L [facility] [place] Chem S CO2 [Moles/Vol] 24 mmol/L Normal 21 - 31 mmol/L [facility] [place] Chem S Creatinine [Mass/Vol] 0.6 mg/dL Normal 0.5 - 1.3 mg/dL [facility] [place] Chem S eGFR 132 mL/min/1.73 m2 Normal >=59mL/mi n/1 .73 m2 [facility] [place] Chem S Ethanol Lvl mg/dL Normal <=11mg/dL [facility] [place] Chem S Globulin (S) [Mass/Vol] 3.4 g/dL Normal 1.4 - 4.0 gm/dL [facility] [place] Chem S Glucose [Mass/Vol] 92 mg/dL Normal 55 - 199 mg/dL [facility] [place] Chem S Magnesium [Mass/Vol] 1.5 mg/dL Normal 1.3 - 2 .4 mg/dL [facility] [place] Chem S Potassium [Moles/Vol] 3.9 mmol/L Normal 3.5 - 5.3 mmol/L [facility] [place] Chem S Protein [Mass/Vol] 7.5 g/dL Normal 6.0 - 7.8 gm/dL [facility] [facility] [place] [place] Chem S Sodium [Moles/Vol] 134 mmol/L Low 135 - 145 mmol/L [facility] [place] Chem S Urea nitrogen [Mass/Vol] 3 mg/dL Low 5 - 21 mg/dL [facility] [place] Chem S Urea nitrogen/Creatinine [Mass ratio] 5 mg/mg Low 10 - 20 [facility] [place] [place] Chem S Capillary Glucose POCon 05-2 2-2024 Glucose [Mass/Vol] 109 mg/dL High 55-99 [facility] Comment on above: Result Comment: Seema soriano Meter Performed By: #### 2 [id number] #### [facility] [address] [place] [id number] Consent for Treatmenton 06-12 Consent for Treatment [id number] FF [facility] Discharge Instructionson Discharge Instructions [id number] FF [facility] ED Clinical Summaryon 2023 ED Clinical Summary (Inserted Image. Tracy ble to display) [address] [address] ED Clinical Summary Person Information Name: LYLE BAILEY Faye/[facility] Age: 33 Years : 1990 Sex: Female Language: Citizen Of [place] PCP: Amanda BARRIOS CNP Marital Status: Single Visit Id: Visit Reason: Seizure; Alcohol withdrawal; seizure Speciality: Acuity: 2 Enc Type: Emergency Med Service: Emergency Arrival: 07/03/2023 07:31:19 Discharge: 07/03/2023 10:49:02 LOS: 000 03:18 Checkin: 07/03/2023 07:31:19 Checkout: 07/03/2023 10:49:02 Dispo Type: Home (Routine DC) EVENTS: Event Name Event Status Request Date/Time Start Date/Time Complete Date/Time Arrive Complete 07/03/2023 07:31:19 07/03/2023 07:31:19 07/03/2023 07:31:19 Document Home Meds Request 07/03/2023 07:31:19 Triage Complete 07/03/2023 07:31:19 07/03/2023 07:40:16 07/03/2023 07:40:16 Bed Assign Complete 07/03/2023 07:31:19 07/03/2023 07:31:19 07/03/2023 07:31:19 Dr Exam Complete 07/03/2023 07:31:19 07/03/2023 07:33:01 07/03/2023 07:33:01 RN Exam Complete 07/03/2023 07:31:19 07/03/2023 08:02:52 07/03/2023 08:02:52 Registration Complete 07/03/2023 07:33:01 07/03/2023 07:48:33 07/03/2023 07:48:33 Pending Labs Complete 07/03/2023 07:42:32 07/03/2023 10:35:28 Lab Complete 07/03/2023 07:42:32 07/03/2023 10:35:28 Urine Collect Complete 07/03/2023 07:42:32 07/03/2023 10:35:28 Patient Care Complete 07/03/2023 07:42:32 07/03/2023 08:11:05 Reg Complete Request 07/03/2023 07:48:33 Reg Bed Request Complete 07/03/2023 07:48:33 07/03/2023 07:48:33 07/03/2023 07:48:33 Pending Labs Complete 07/03/2023 08:03:04 07/03/2023 08:03:04 07/03/2023 09:07:53 Lab Complete 07/03/2023 08:03:04 07/03/2023 08:03:04 07/03/2023 09:07:53 Pending Labs Complete 07/03/2023 08:06:51 07/03/2023 08:06:51 07/03/2023 08:06:52 Pending Labs Complete 07/03/2023 08:07:50 07/03/2023 08:07:50 07/03/2023 08:07:51 Meds Admin Complete 07/03/2023 09:44:04 07/03/2023 09:54:25 Discharge Complete 07/03/2023 10:43:28 07/03/2023 10:49:08 07/03/2023 10:49:08 Transfer Complete 07/03/2023 10:49:08 07/03/2023 10:49:08 07/03/2023 10:49:08 ADDRESS: [address] [place] [id number] PHYS DOC NOTES: MEDICAL INFORMATION: Prescriptions Given: Medications to Continue with No Changes Other Medications acetaminophen (acetaminophen 325 mg Tab) 2 Tablets By Mouth every 6 hours as needed Pain. clonidine (cloNIDine 0.1 mg tab) 1 Tablets By Mouth 2 times a day. Refills: 0. fluconazole (Diflucan 150 mg Tab) 1 Tablets By Mouth Once. Refills: 0. gabapentin (gabapentin 800 mg Tab) 1 Tablets By Mouth 3 times a day. 30 day supply. Refills: 0. gabapentin (gabapentin 800 mg Tab) 1 Tablets By Mouth 3 times a day. multivitamin (Therapeutic Multiple Vitamin Tab) By Mouth every day. ondansetron (Zofran ODT 4 mg Tab-Dis) 1 Tablets By Mouth every 8 hours as needed Nausea/Vomiting. Refills: 0. paliperidone (Invega 3 mg oral tablet, extended release) 1 Tablets By Mouth at bedtime. propranolol 40 Milligram 2 times a day. PATIENT EDUCATION INFORMATION: Instructions: Seizure, Adult, Mucx-zv-Etff; Alcohol Withdrawal Syndrome, Tbpr-nt-Mhqf Follow up: With: Address: When: Amanda BARRIOS [address] [phone] Business (1) Within 1 to 2 days, only if needed DIAGNOSIS: 1:Alcohol withdrawal seizure; Unspecified convulsions [facility] ED Note-Physicianon 07-03-19 ED Note-Physician Basic Information Time Seen: Kaushik Sparks MD 07/03/2023 07:33 Chief Complaint pt reports seizure like activity a home. daily drinker. last drink was yesterday but only drank a couple teas . drank less than normal so she could go to detox today. c/o headache. pt bite tongue during seizure. History of Present Illness 33-year-old female presents by ambulance from home after a witnessed seizure that lasted about 30 seconds. Patient states that she was in bed when her mother witnessed the seizure. Patient's only complaint here is that she bit her tongue and her tongue is sore. She denies any pain elsewhere. Denies any headache pain there is no chest pain or abdominal pain. Patient is a daily drinker her last alcohol was yesterday. She states she did take her gabapentin. She denies any illegal drugs. She is a smoker. She denies heart disease. She denies hypertension or diabetes. Patient states she has had a seizure in the past she believes. Review of Systems A 10 point review of systems is negative except as noted above. Medical and Surgical History: Reviewed and noted Social history: Lives at home Tobacco: Denies Physical Exam Vitals & Measurements T: 37.0 ?C(Oral) HR: 85(Monitored) RR: 15 BP: 133/91 SpO2: 96% HT: 156 cm WT: 72 kg BMI: 29.59 Pleasant moderately overweight 33-year-old female alert and oriented x 3 skull is atraumatic. Pupils are 3 mm and equal extraocular muscles are conjugate and full. There is no facial asymmetry. There is small superficial lacerations on the left margin of the tongue no active bleeding no sutures are required. Tongue is midline. The heart is regular but slightly accelerated. Lungs show some inspiratory rhonchi but otherwise good air entry bilaterally. No respiratory guarding. The abdomen is soft obese but nontender. Patient moves all extremities with normal and symmetric strength. Both finger-nose and heel toe maneuver are executed without any ataxia. Medical Decision Making I explained to the patient that we do not routinely treat with prophylactic seizure medications alcohol withdrawal seizures. We did discuss the agitation and other withdrawal symptoms that can occur with cessation of alcohol. Patient has not had significant alcohol withdrawal problems in the past. She is scheduled to see detox today at 3:30 PM. Her mother is driving her to the appointment. We will administer 1 mg of Ativan here p.o. pending the results of her drug screen. Assessment/Plan 1. Alcohol withdrawal seizure (F10.939: Alcohol use, unspecified with withdrawal, unspecified) Unspecified convulsions (R56.9: Unspecified convulsions) Orders: lorazepam, 1 mg = 1 tab(s), Tab, Oral, Once, Stop date 07/03/23 9:43:00 EDT, NOW, Start date 07/03/23 9:43:00 EDT, 07/03/23 9:43:00 EDT Basic Metabolic Panel Capillary Glucose POC CBC w/ Auto Diff Drug Screen Urine ED Cardiac Monitoring eGFR Ethanol Level Extra Blue Tube Extra SST Tube Hepatic Function Panel Magnesium Level Routine Capillary Glucose POC Saline Lock Insert Medications Administered Given Ativan 1 mg Tab, 1 mg, Oral Disposition Plan Patient Discharge Condition Stable Discharge Disposition Home with her mother driving. Discharge Prescription List Prescriptions No active prescription medications Follow-up With When Contact Information Amanda BARRIOS Within 1 to 2 days, only if needed [address] [place] [address]- [employer] (1) Additional Instructions: Patient Education Seizure, Adult, Sbhq-ee-Tyau Alcohol Withdrawal Syndrome, Weal-ig-Znho Problem List/Past Medical History Ongoing Alcohol abuse Bipolar depression BMI 29.0-29.9,adult Dysuria Hepatitis B Hepatitis C History of drug abuse Hyperhidrosis Lower extremity neuropathy Overweight Smoker Sore throat STD exposure UTI (urinary tract infection), uncomplicated Historical Group B streptococcus Smoker.. Yeast vaginitis Procedure/Surgical History None. Medications Inpatient No active inpatient medications Home acetaminophen 325 mg Tab, 650 mg= 2 tab(s), Oral, q6hr, PRN cloNIDine 0.1 mg tab, 0.1 mg= 1 tab(s), Oral, BID Diflucan 150 mg Tab, 150 mg= 1 tab(s), Oral, Once gabapentin 800 mg Tab, 800 mg= 1 tab(s), Oral, TID gabapentin 800 mg Tab, 800 mg= 1 tab(s), Oral, TID Invega 3 mg oral tablet, extended release, 3 mg= 1 tab(s), Oral, Bedtime propranolol, 40 mg, BID Therapeutic Multiple Vitamin Tab, Oral, Daily Zofran ODT 4 mg Tab-Dis, 4 mg= 1 tab(s), Oral, q8hr, PRN Allergies SEROquel (Swelling) Vistaril (Palpitations) codeine (Redness) Social History Alcohol - High Risk, 05/25/2020 Daily, 07/03/2023 Current, Daily, 06/03/2023 Liquor, Daily, 11/24/2020 Substance Abuse - High Risk, 11/17/2017 Current, 07/19/2020 Past, Heroin, 3-5 times per week, IV drug use: Yes. Ready to change: Yes., 11/17/2017 Current, Heroin, 11/16/2017 Tobacco - High Risk, 02/01/2012 10 or more cigarettes (1 (more content not included)... [facility] Comment on above: Result Comment: Elec tronically Signed By: Kaushik Sparks MD\.br\Date and Time Signed: 07/03/23 10:45 EDT ED Patient Education Noteon 07-03-2023 ED Patient Education Note Mental and Behavioral Health Alcohol Withdrawal Syndrome Alcohol withdrawal syndrome is a group of symptoms that can happen when a person who drinks heavily and regularly stops drinking or drinks less. This condition may be mild or severe. It can also be life-threatening. What are the causes? Alcohol withdrawal syndrome happens when a person who has been drinking a lot of alcohol for a long time stops drinking. What increases the risk? You are more likely to get alcohol withdrawal syndrome if: ? You drink more alcohol than is recommended. The limit is: ? 0?1 drink a day for women who are not . ? 0?2 drinks a day for men. ? You have used alcohol for a long time. ? You have had alcohol withdrawal syndrome in the past. ? You have had a seizure in the past when you stopped drinking. ? You are an older person. ? You use drugs. ? You have long-term (chronic) disease, such as heart or lung problems. ? You have depression. ? You are not eating well. What are the signs or symptoms? Symptoms of this condition include: ? Shaking. ? Sweating. ? Headache. ? Alcohol cravings. ? Feeling fearful, upset, grouchy, or depressed. ? Trouble sleeping or nightmares. ? Not being hungry (loss of appetite). Moderate symptoms of this condition include: ? Big changes in mood (mood swings). ? Trouble thinking clearly. ? Being bothered by light and sounds. ? Fast or uneven heartbeats (palpitations). ? Vomiting. Some symptoms are serious and must be treated right away. These symptoms are called delirium tremens, or DTs. Get help right away if you have symptoms of DTs. Symptoms include: ? High blood pressure. ? Fast heartbeat. ? Trouble breathing. ? Seizures. ? Seeing, hearing, feeling, smelling, or tasting things that are not there (hallucinations). How is this treated? Treatment may involve: ? Checking your blood pressure, pulse, and breathing. ? IV fluids to keep you hydrated. ? Medicines to treat your symptoms. ? Medicine to reduce anxiety. ? Medicine to prevent or control seizures. ? Multivitamins and B vitamins. ? Having a doctor check on you daily. If you need help to stop drinking, your doctor may recommend: ? Medicines. ? Counseling. ? Support groups. Follow these instructions at home: ? Take wcom-vqb-vatdera and prescription medicines only as told by your doctor. ? Do not drink alcohol. ? Do not drive until your doctor says that it is safe. ? Have someone stay with you or be available in case you need help. This should be someone you trust. This person can help you with your symptoms and can also help you to not drink. ? Drink enough fluid to keep your pee (urine) pale yellow. ? Think about joining a support group or a treatment program to help you stop drinking. Contact a doctor if: ? Your symptoms get worse. ? You cannot eat or drink without vomiting. ? You cannot stop drinking alcohol. Get help right away if: ? You have fast or uneven heartbeats. ? You have chest pain. ? You have trouble breathing. ? You are told you had a seizure. ? You see, hear, feel, smell, or taste something that is not there. ? You get very confused. These symptoms may be an emergency. Get help right away. Call 911. ? Do not wait to see if the symptoms will go away. ? Do not drive yourself to the hospital. Summary ? Alcohol withdrawal syndrome is a group of symptoms that can happen when a person who drinks heavily and regularly stops drinking or drinks less. ? Delirium tremens (DTs) is a group of life-threatening symptoms. You should get help right away if you have these symptoms. ? Think about joining an alcohol support group or a treatment program. This information is not intended to replace advice given to you by your health care provider. Make sure you discuss any questions you have with your health care provider. Document Revised: 04/11/2022 Document Reviewed: 04/11/2022 [employer] Patient Education ? 2022 [employer] Neurology Seizure, Adult A seizure is a sudden burst of abnormal electrical and chemical activity in the brain. Seizures usually last from 30 seconds to 2 minutes. What are the causes? Common causes of this condition include: ? Fever or infection. ? Problems that affect the brain. These may include: ? A brain or head injury. ? Bleeding in the brain. ? A brain tumor. ? Low levels of blood sugar or salt. ? Kidney problems or liver problems. ? Conditions that are passed from parent to child (are inherited). ? Problems with a substance, such as: ? Having a reaction to a drug or a medicine. ? Stopping the use of a substance all of a sudden (withdrawal). ? A stroke. ? Disorders that affect how you develop. Sometimes, the cause may not be known. What increases the risk? ? Having someone in your family who has epilepsy. In this condition, seizures happen again and again over time. They have no clear cau (more content not included)... [facility] ED Patient Summaryon 024 ED Patient Summary (Inserted Image. Tracy ble to display) [address] [address] Patient Discharge Instructions Person Information Name: LYLE BAILEY Age: 33 Years Arrival Date: 07/03/2023 07:31:19 Discharge Diagnosis: 1:Alcohol withdrawal seizure; Unspecified convulsions Primary Care Physician: Amanda BARRIOS CNP Provider Information Primary Provider: Kaushik Sparks MD Advanced Lathe Set Up Operator:None The exam and treatment you received in the Emergency Department were for an urgent problem and are not intended as complete care. It is important that you follow up with a doctor, nurse practitioner, or physician?s family services assistant for ongoing care. If your symptoms become worse or you do not improve as expected and you are unable to reach your usual health care provider, you should return to the Emergency Department. We are available 24 hours a day. LYLE BAILEY has been given the following list of patient education materials, prescriptions and follow-up instructions: Follow-up Instructions: With: Address: When: Amanda BARRIOS [address] [place] [address] Business (1) Within 1 to 2 days, only if needed In the event that this physician does not participate in your insurance network, please consult with your insurance company to find a nearby participating provider. Patient Education Materials: Seizure, Adult, Vrum-fm-Qprh; Alcohol Withdrawal Syndrome, Rzai-jf-Vvpn A MESSAGE TO ALL PATIENTS REGARDING OPIOIDS PRESCRIPTION OPIOIDS: WHAT YOU NEED TO KNOW Prescription opioids can be used to help relieve ljefihnn-cj-pedjag pain and are often prescribed following a surgery or injury, or for certain health conditions. These medications can be an important part of the treatment but also come with serious risks. It is important to work with your healthcare provider to make sure you are getting the safest, most effective care. WHAT ARE THE RISKS AND SIDE EFFECTS OF OPIOID USE? Prescription opioids carry serious risks of addiction and overdose, especially with prolonged use. An opioid overdose, often marked by slowed breathing, can cause sudden . The use of prescription opioids can have a number of side effects as well, even when taken as directed: ? Tolerance?meaning you might need to take more of the medication for the same pain relief ? Physical dependence?meaning you have symptoms of withdrawal when a medication is stopped ? Increased sensitivity to pain ? Constipation ? Nausea, vomiting, and dry mouth ? Sleepiness and dizziness ? Confusion ? Depression ? Low levels of testosterone that can result in lower sex drive, energy, and strength ? Itching and sweating RISKS ARE GREATER WITH: ? History of drug misuse, substance use disorder, or overdose ? Mental health conditions (such as depression or anxiety) ? Sleep apnea ? Older age (65 years and older) ? Avoid alcohol while taking prescription opioids. Also, unless specifically advised by your health care provider, medications to avoid include: ? Benzodiazepines (such as Xanax or Valium) ? Muscle relaxants (such as Soma or Flexeril) ? Hypnotics (such as Ambien or Lunesta) ? Other prescription opioids KNOW YOUR OPTIONS Talk to your health care provider about ways to manage your pain that don?t involve prescription opioids. Some of these options may actually work better and have fewer risks and side effects. Options may include: ? Pain relievers such as acetaminophen, ibuprofen, and naproxen ? Some medication that are also used for depression or seizures ? Physical therapy and exercise ? Cognitive behavioral therapy, a psychological, goal-directed approach, in which patients learn how to modify physical, behavioral, and emotional triggers of pain and stress. IF YOU ARE PRESCRIBED OPIOIDS FOR PAIN: ? Never take opioids in greater amounts or more often than prescribed. ? Follow up with your primary health care provider. o Work together to create a plan on how to manage your pain. o Talk about ways to help manage your pain that don?t involve prescription opioids. o Talk about any and all concerns and side effects. ? Help prevent misuse and abuse o Never sell or share prescription opioids. o Never use another person?s prescription opioids. ? Store prescription opioids in a secure place and out of reach of others (this may include visitors, children, friends, and family). ? Safely dispose of unused prescription opioids: Find your community drug take-back program or your pharmacy mail-back program, or flush them down the toilet, following guidance from the Food and Drug Administration (www.fda.gov/Drugs/Resou rcesForYou). ? Visit www.cdc.gov/drugoverdose to learn about the risks of opioids abuse and overdose. ? If you believe you may be struggling with addiction, tell your health rn urgent care and ask for guidance or ca (more content not included)... [facility] EMS Documentationon 07-03-19 24 EMS Documentation Please click on link to see report [facility] Comment on above: Result Comment: Miss ing Attachment - total size limit for all attachments exceeded [email or web address] Can be viewed in source system Ethanolon 07-03-2023 Ethanol Lvl <10 Normal <=11 [facility] Comment on above: Performed By: #### 2 [id number] #### [facility] [address] [place] [address] HEMATOLOGYOrdered By: SYSTEM SYSTEM on 07-03-2023 Basophils/100 WBC (Bld) 0.3 % Normal 0.0 - 2.0 % Remisol Heme Basophils/Leukocytes Auto (Bld) [Pure # fraction] 0.0 E9/L Normal 0.0 - 0.2 E9/L Remisol Heme Eosinophils (Bld) [#/Vol] 0.1 E9/L Normal 0.0 - 0.5 E9/L Remisol Heme Eosinophils/100 WBC (Bld) 1.5 % Normal 0.0 - 8.0 % Remisol Heme Erythrocyte distribution width (RBC) [Ratio] 14.0 % Normal 10.9 - 14.2 % Remisol Heme Hematocrit (Bld) [Volume fraction] 39.3 % Normal 34.0 - 46.0 % Remisol Heme Hemoglobin (Bld) [Mass/Vol] 13.2 g/dL Normal 12.0 - 16.0 gm/dL Remisol Heme Lymphocytes (Bld) [#/Vol] 1.6 E9/L Normal 1.0 - 4.0 E9/L Remisol Heme Lymphocytes/100 WBC (Bld) 33.5 % Normal 14.0 - 50.0 % Remisol Heme MCH (RBC) [Entitic mass] 33.7 pg Normal 27.0 - 34.0 pg Remisol Heme MCHC (RBC) [Mass/Vol] 33.5 g/dL Normal 31.4 - 36.0 gm/dL Remisol Heme MCV (RBC) [Entitic vol] 100.6 fL High 80.0 - 100.0 fL Remisol Heme Monocytes (Bld) [#/Vol] 0.2 E9/L Normal 0.2 - 1.0 E9/L Remisol Heme Monocytes/100 WBC (Bld) 5.2 % Normal 4.0 - 14.0 % Remisol Heme Neutrophils (Bld) [#/Vol] 2.8 E9/L Normal 2.0 - 7.5 E9/L Remisol Heme Neutrophils/100 WBC (Bld) 59.5 % Normal 36.0 - 75.0 % Remisol Heme Platelet 126.0 E9/L Low 150.0 - 500.0 E9/L Remisol Heme Platelet mean volume (Bld) [Entitic vol] 8.9 fL Normal 6.4 - 10.8 fL Remisol Heme RBC (Bld) [#/Vol] 3.9 E12/L Low 4.3 - 5.9 E12/L Remisol Heme WBC corrected for nucl RBC Auto (Bld) [#/Vol] 4.7 E9/L Normal 4.0 - 11.0 E9/L Remisol Heme Hep Func Panelon 07-03-2023 Albumin [Mass/Vol] 4.1 g/dL Normal 3.3-5.0 [facility] Comment on above: Performed By: #### 2 [id number] #### [facility] [address] [place] [address] Albumin/Globulin (S) [Mass conc ratio] 1.2 Normal 1.1-2.2 [facility] Comment on above: Performed By: #### 2 [id number] #### [facility] [address] [place] [address] ALP [Catalytic activity/Vol] 105 Int._Unit/L High 21-98 [facility] Comment on above: Performed By: #### 2 [id number] #### [facility] [address] [place] [address] ALT No additional P-5'-P [Catalytic activity/Vol] 86 Int._Unit/L High 6-46 [facility] Comment on above: Performed By: #### 2 [id number] #### [facility] [address] [place] [address] AST [Catalytic activity/Vol] 132 Int._Unit/L [facility] 5-43 [facility] Comment on above: Performed By: #### 2 [id number] #### [facility] [address] [place] [address] Bilirubin [Mass/Vol] 0.9 mg/dL Normal 0.0-1.1 [facility] Comment on above: Performed By: #### 2 [id number] #### [facility] [address] [place] [address] Bilirubin.direct [Mass/Vol] 0.3 mg/dL Normal 0.0-0.4 [facility] Comment on above: Performed By: #### 2 [id number] #### [facility] [address] [place] [address] Bilirubin.indirect [Mass or moles/Vol] 0.6 mg/dL Normal 0.1-0.9 [facility] Comment on above: Performed By: #### 2 [id number] #### [facility] [address] [place] [address] Globulin (S) [Mass/Vol] 3.4 g/dL Normal 1.4-4.0 [facility] Comment on above: Performed By: #### 2 [id number] #### [facility] [address] [place] [address] Protein [Mass/Vol] 7.5 g/dL Normal 6.0-7.8 [facility] Comment on above: Performed By: #### 2 [id number] #### [facility] [address] [place] [address] Magnesiumon 07-03-2023 Magnesium [Mass/Vol] 1.5 mg/dL Normal 1.3-2.4 [facility] Comment on above: Performed By: #### 2 [id number] #### [facility] [address] [place] [address] Pre-Arrival Noteon 4 Pre-Arrival Note Pre-Arrival Summary Name: britany Current Date: 07/03/2023 07:31:40 EDT Gender: Female Date of : Age: 32 Pre-Arrival Type: EMS ETA: 07/03/2023 07:50:00 EDT Primary Care Physician: Presenting Problem: pseudoseizure Pre-Arrival User: Chilo Godoy RN Referring Source: Location: [place] Completion Date/Time: 07/03/2023 07:20:00 [facility] Emergency Department Pre-Hospital Report Form Vital Signs: Pre-Hospital Report: Treatment in Route: Response to Treatment: Misc. Issues: [facility] U Drug Screenon 07-03-2023 Amphetamines Screen method >1000 ng/mL Ql (U) Negative Normal NEGATIVE [facility] Comment on above: Result Comment: Nega tive Cutoff: <1000 ng/mL Performed By: #### 2 [id number] #### [facility] [address] [place] [address] Barbiturates Screen Ql (U) Negative Normal NEGATIVE [facility] Comment on above: Result Comment: Nega tive Cutoff: <200 ng/mL Performed By: #### 2 [id number] #### [facility] [address] [place] [address] Benzodiazepines Ql (U) Negative Normal NEGATIVE [facility] Comment on above: Result Comment: Nega tive Cutoff: <200 ng/mL Performed By: #### 2 [id number] #### [facility] [address] [place] [address] Cannabinoids Screen Ql (U) Negative Normal NEGATIVE [facility] Comment on above: Result Comment: Nega tive Cutoff: <50 ng/mL Performed By: #### 2 [id number] #### [facility] [address] [place] [address] Cocaine Ql (U) Negative Normal NEGATIVE [facility] Comment on above: Result Comment: Nega tive Cutoff: <300 ng/mL Performed By: #### 2 [id number] #### [facility] [address] [place] [address] Opiates Screen Ql (U) Negative Normal NEGATIVE [facility] Comment on above: Result Comment: Nega tive Cutoff: <300 ng/mL Performed By: #### 2 [id number] #### [facility] [address] [place] [address] Phencyclidine Screen method >25 ng/mL Ql (U) Negative Normal NEGATIVE [facility] Comment on above: Result Comment: Nega tive Cutoff: <25 ng/mL These drug screen results are to be used for medical (i.e., treatment) purposes only. Unconfirmed drug screening results must not be used for non-medical purposes (e.g., employment testing, legal testing). Performed By: #### 2 [id number] #### [facility] [address] [place] [address] U Fentanyl Positive Abnormal NEGATIVE [facility] Comment on above: Result Comment: No C onfirmation Requested by Physician Unconfirmed by an Alternate Method Result Verified by Repeat Analysis called to JORGE/ Nicholas Bahena Negative Cutoff: <5 ng/mL These drug screen results are to be used for medical (i.e., treatment) purposes only. Unconfirmed drug screening results must not be used for non-medical purposes (e.g., employment testing, legal testing). Performed By: #### 2 [id number] #### [facility] [address] [place] [address] eGFRon 07-03-2023 eGFR 132 mL/min/1.73 m2 Normal >=59 [facility] Comment on above: Order Comment: Order added by Discern Expert. Performed By: #### 1 [id number] #### [facility] [address] [place] [address] Discharge Instructionson Discharge Instructions [id number] Normal [facility] ED Clinical Summaryon 2023 ED Clinical Summary (Inserted Image. Tracy ble to display) [address] [address] ED Clinical Summary Person Information Name: LYLE BAILEY Faye/[facility] Age: 33 Years : 1990 Sex: Female Language: Citizen Of [place] PCP: Amanda BARRIOS CNP Marital Status: Single Visit Id: Visit Reason: Alcohol intoxication; drunk Speciality: Acuity: 2 Enc Type: Emergency Med Service: Emergency Arrival: 06/30/2023 13:42:59 Discharge: 06/30/2023 23:51:48 LOS: 000 10:09 Checkin: 06/30/2023 13:42:59 Checkout: 06/30/2023 23:51:48 Dispo Type: Home (Routine DC) EVENTS: Event Name Event Status Request Date/Time Start Date/Time Complete Date/Time Arrive Complete 06/30/2023 13:42:59 06/30/2023 13:42:59 06/30/2023 13:42:59 Document Home Meds Request 06/30/2023 13:42:59 Triage Complete 06/30/2023 13:42:59 06/30/2023 13:56:24 06/30/2023 13:56:24 Dr Exam Complete 06/30/2023 13:43:22 06/30/2023 13:43:22 06/30/2023 13:43:22 Registration Complete 06/30/2023 13:43:22 06/30/2023 13:43:30 06/30/2023 14:39:30 Bed Assign Complete 06/30/2023 13:43:30 06/30/2023 13:43:30 06/30/2023 13:43:30 RN Exam Complete 06/30/2023 13:43:30 06/30/2023 16:04:27 06/30/2023 16:04:27 Meds Admin Complete 06/30/2023 13:45:48 06/30/2023 14:45:16 Pending Labs Complete 06/30/2023 13:45:48 06/30/2023 15:37:56 Lab Complete 06/30/2023 13:45:48 06/30/2023 15:37:56 Urine Collect Complete 06/30/2023 13:45:48 06/30/2023 15:37:56 Patient Care Request 06/30/2023 13:45:48 RT Request 06/30/2023 13:45:48 Meds Admin Complete 06/30/2023 13:46:28 06/30/2023 14:45:16 Meds Admin Cancel 06/30/2023 13:50:18 06/30/2023 14:00:52 Meds Admin Complete 06/30/2023 14:00:52 06/30/2023 14:45:17 Reg Complete Request 06/30/2023 14:39:30 Reg Bed Request Complete 06/30/2023 14:39:30 06/30/2023 14:39:30 06/30/2023 14:39:30 Pending Labs Complete 06/30/2023 14:49:22 06/30/2023 14:49:22 06/30/2023 15:14:40 Lab Complete 06/30/2023 14:49:22 06/30/2023 14:49:22 06/30/2023 15:14:40 Meds Admin Complete 06/30/2023 14:59:36 06/30/2023 15:11:02 Pending Labs Complete 06/30/2023 15:01:51 06/30/2023 15:01:51 06/30/2023 15:01:51 Meds Admin Complete 06/30/2023 15:42:02 06/30/2023 15:53:27 Dr Exam Complete 06/30/2023 18:56:50 06/30/2023 18:56:50 06/30/2023 18:56:50 Registration Request 06/30/2023 18:56:50 Discharge Complete 06/30/2023 23:40:19 06/30/2023 23:51:55 06/30/2023 23:51:55 Transfer Complete 06/30/2023 23:51:55 06/30/2023 23:51:55 06/30/2023 23:51:55 ADDRESS: [address] [place] [id number] PHYS DOC NOTES: MEDICAL INFORMATION: Prescriptions Given: Medications to Continue with No Changes Other Medications acetaminophen (acetaminophen 325 mg Tab) 2 Tablets By Mouth every 6 hours as needed Pain. clonidine (cloNIDine 0.1 mg tab) 1 Tablets By Mouth 2 times a day. Refills: 0. fluconazole (Diflucan 150 mg Tab) 1 Tablets By Mouth Once. Refills: 0. gabapentin (gabapentin 800 mg Tab) 1 Tablets By Mouth 3 times a day. 30 day supply. Refills: 0. gabapentin (gabapentin 800 mg Tab) 1 Tablets By Mouth 3 times a day. multivitamin (Therapeutic Multiple Vitamin Tab) By Mouth every day. ondansetron (Zofran ODT 4 mg Tab-Dis) 1 Tablets By Mouth every 8 hours as needed Nausea/Vomiting. Refills: 0. paliperidone (Invega 3 mg oral tablet, extended release) 1 Tablets By Mouth at bedtime. propranolol 40 Milligram 2 times a day. PATIENT EDUCATION INFORMATION: Instructions: Alcohol Intoxication Follow up: With: Address: When: Amanda BARRIOS [address] [place] [address] Business (1) In 3 days DIAGNOSIS: Acute alcohol intoxication; Drinking binge [facility] ED Note-Physicianon 07-01-19 ED Note-Physician Patient seen and spe ak with the oncoming physician. Patient had presented with agitation and was intoxicated with alcohol. At the time of signout the patient had been medicated for her agitation and is sleeping. The plan at time of signout is to observe until she is awake and alert calm and able to be discharged in the care of her family. Patient awoke and was able to eat a meal here in the ED and is now calm and cooperative. We called the patient's mother who is not willing to come pick her up. She will follow-up with her primary care physician. [facility] Comment on above: Result Comment: Ross matt Signed By: Darren Guzman DO\.ella\Date and Time Signed: 06/30/23 23:41 EDT ED Patient Education Noteon 07-01-2023 ED Patient Education Note Mental and Behavioral Health Alcohol Intoxication Alcohol intoxication occurs when a person no longer thinks clearly or functions well after drinking alcohol. This is also referred to as becoming impaired. Intoxication can occur with just one drink. The legal definition of alcohol intoxication depends on the amount of alcohol in the blood (blood alcohol concentration, LUCAS). LUCAS of 80?100 mg/dL or higher is commonly considered legally intoxicated. The level of impairment depends on: ? The amount of alcohol the person had. ? The person's age, gender, and weight. ? How often the person drinks. ? Whether the person has other medical conditions, such as diabetes, seizures, or a heart condition. Alcohol intoxication can range from mild to severe. The condition can be dangerous, especially if the person: ? Also took certain drugs or prescription medicines. ? Drinks a large amount of alcohol in a short period of time (binge drinks). ? For women, binge drinking is having four or more drinks at one time. ? For men, binge drinking is having five or more drinks at one time. If you or anyone around you appears intoxicated, speak up and act. What are the causes? This condition is caused by drinking alcohol. What increases the risk? The following factors may make you more likely to develop this condition: ? Peer pressure in young adults. ? Difficulty managing stress. ? History of drug or alcohol abuse. ? Family history of drug or alcohol abuse. ? Combining alcohol with drugs. ? Low body weight. ? Binge drinking. What are the signs or symptoms? Symptoms of alcohol intoxication can vary from person to person. Symptoms can be mild, moderate, or severe. Symptoms of mild alcohol intoxication may include: ? Feeling relaxed or sleepy. ? Having mild difficulty with coordination, speech, memory, or attention. Symptoms of moderate alcohol intoxication may include: ? Strong anger or extreme sadness. ? Moderate difficulty with coordination, speech, memory, or attention. Symptoms of severe alcohol intoxication may include: ? Severe difficulty with coordination, speech, memory, or attention. ? Passing out. ? Vomiting. ? Confusion. ? Slow breathing. ? Coma. Intoxication can change quickly from mild to severe. It can cause coma or , especially in people who do not drink alcohol often. How is this diagnosed? Your health care provider will ask you how much alcohol you drank and what kind you had. Intoxication may also be diagnosed based on: ? Your symptoms and medical history. ? A physical exam. ? A blood test that measures LUCAS. ? A smell of alcohol on your breath. How is this treated? Treatment for alcohol intoxication may include: ? Being monitored in an emergency department, hospital, or treatment center until your LUCAS comes down and it is safe for you to go home. ? IV fluids to prevent or treat loss of fluid in the body (dehydration). ? Medicine to treat nausea or vomiting or to get rid of alcohol in the body. ? Counseling about the dangers of using alcohol. ? Treatment for substance use disorder. ? Oxygen therapy or a breathing machine (ventilator). Drinking alcohol for a long time can have long-term effects on your brain, heart, and digestive system. These effects can be serious and may also require treatment. Follow these instructions at home: Eating and drinking ? Do not drink alcohol if: ? Your health care provider tells you not to drink. ? You are , may be , or are planning to become . ? You are under the legal drinking age, or under 21 years old in the [place] ? You are taking medicines that should not be taken with alcohol. ? You have a medical condition, and alcohol makes it worse. ? You need to drive or perform activities that require you to be alert. ? You have substance use disorder. ? Ask your health care provider if alcohol is safe for you. If your health care provider allows you to drink alcohol, limit how much you have to: ? 0?1 drink a day for women who are not . ? 0?2 drinks a day for men. ? Know how much alcohol is in your drink. In the [place] one drink equals one 12 oz bottle of beer (355 mL), one 5 oz glass of wine (148 mL), or one 1? oz glass of hard liquor (44 mL). ? Avoid drinking alcohol on an empty stomach. ? Alcohol increases urination. It is important to stay hydrated and avoid caffeine. ? Avoid drinking more than one drink per hour. ? When having multiple drinks, drink water or a non-alcoholic beverage between alcoholic drinks. General instructions ? Take luob-dqr-wrliudn and prescription medicines only as told by your health care provider. ? Do not drive after drinking any amount of alcohol. Plan for a designated ready mix truck driver or another way to go home. ? Have someone responsible stay with you while you are intoxicated. You should notbe left alone. Contac (more content not included)... [facility] ED Patient Summaryon 024 ED Patient Summary (Inserted Image. Tracy ble to display) [address] [address] Patient Discharge Instructions Person Information Name: LYLE BAILEY Age: 33 Years Arrival Date: 06/30/2023 13:42:59 Discharge Diagnosis: Acute alcohol intoxication; Drinking binge Primary Care Physician: Amanda BARRIOS CNP Provider Information Primary Provider: sIai Hall DO Advanced Lathe Set Up Operator:None The exam and treatment you received in the Emergency Department were for an urgent problem and are not intended as complete care. It is important that you follow up with a doctor, nurse practitioner, or physician?s family services assistant for ongoing care. If your symptoms become worse or you do not improve as expected and you are unable to reach your usual health care provider, you should return to the Emergency Department. We are available 24 hours a day. LYLE BAILEY has been given the following list of patient education materials, prescriptions and follow-up instructions: Follow-up Instructions: With: Address: When: Amanda BARRIOS [address] [place] [address] [facility] (1) In 3 days In the event that this physician does not participate in your insurance network, please consult with your insurance company to find a nearby participating provider. Patient Education Materials: Alcohol Intoxication A MESSAGE TO ALL PATIENTS REGARDING OPIOIDS PRESCRIPTION OPIOIDS: WHAT YOU NEED TO KNOW Prescription opioids can be used to help relieve xbzwzwpw-xt-xppidq pain and are often prescribed following a surgery or injury, or for certain health conditions. These medications can be an important part of the treatment but also come with serious risks. It is important to work with your healthcare provider to make sure you are getting the safest, most effective care. WHAT ARE THE RISKS AND SIDE EFFECTS OF OPIOID USE? Prescription opioids carry serious risks of addiction and overdose, especially with prolonged use. An opioid overdose, often marked by slowed breathing, can cause sudden . The use of prescription opioids can have a number of side effects as well, even when taken as directed: ? Tolerance?meaning you might need to take more of the medication for the same pain relief ? Physical dependence?meaning you have symptoms of withdrawal when a medication is stopped ? Increased sensitivity to pain ? Constipation ? Nausea, vomiting, and dry mouth ? Sleepiness and dizziness ? Confusion ? Depression ? Low levels of testosterone that can result in lower sex drive, energy, and strength ? Itching and sweating RISKS ARE GREATER WITH: ? History of drug misuse, substance use disorder, or overdose ? Mental health conditions (such as depression or anxiety) ? Sleep apnea ? Older age (65 years and older) ? Avoid alcohol while taking prescription opioids. Also, unless specifically advised by your health care provider, medications to avoid include: ? Benzodiazepines (such as Xanax or Valium) ? Muscle relaxants (such as Soma or Flexeril) ? Hypnotics (such as Ambien or Lunesta) ? Other prescription opioids KNOW YOUR OPTIONS Talk to your health care provider about ways to manage your pain that don?t involve prescription opioids. Some of these options may actually work better and have fewer risks and side effects. Options may include: ? Pain relievers such as acetaminophen, ibuprofen, and naproxen ? Some medication that are also used for depression or seizures ? Physical therapy and exercise ? Cognitive behavioral therapy, a psychological, goal-directed approach, in which patients learn how to modify physical, behavioral, and emotional triggers of pain and stress. IF YOU ARE PRESCRIBED OPIOIDS FOR PAIN: ? Never take opioids in greater amounts or more often than prescribed. ? Follow up with your primary health care provider. o Work together to create a plan on how to manage your pain. o Talk about ways to help manage your pain that don?t involve prescription opioids. o Talk about any and all concerns and side effects. ? Help prevent misuse and abuse o Never sell or share prescription opioids. o Never use another person?s prescription opioids. ? Store prescription opioids in a secure place and out of reach of others (this may include visitors, children, friends, and family). ? Safely dispose of unused prescription opioids: Find your community drug take-back program or your pharmacy mail-back program, or flush them down the toilet, following guidance from the Food and Drug Administration (www.fda.gov/Drugs/Resou rcesForYou). ? Visit www.cdc.gov/drugoverdose to learn about the risks of opioids abuse and overdose. ? If you believe you may be struggling with addiction, tell your health rn urgent care and ask for guidance or call [facility]?S National Helpline at 2-019-608-HELP. v Source: Department of (more content not included)... [facility] B hCG Qualon 06-30-2023 Beta HCG ( test) Ql Negative [facility] Comment on above: Performed By: #### 2 [id number] #### [facility] [address] [place] [address] BMPon 06-30-2023 Anion gap [Moles/Vol] 19 mmol/L High 6-16 [facility] Comment on above: Performed By: #### 2 [id number] #### [facility] [address] [place] [address] Calcium [Mass/Vol] 8.9 mg/dL Normal 8.9-11.1 [facility] Comment on above: Performed By: #### 2 [id number] #### [facility] [address] [place] [address] Chloride [Moles/Vol] 98 mmol/L Low 101-111 [facility] Comment on above: Performed By: #### 2 [id number] #### [facility] [address] [place] [address] CO2 [Moles/Vol] 25 mmol/L Normal 21-31 [facility] Comment on above: Performed By: #### 2 [id number] #### [facility] [address] [place] [address] Creatinine [Mass/Vol] 0.6 mg/dL Normal 0.5-1.3 [facility] Comment on above: Performed By: #### 2 [id number] #### [facility] [address] [place] [address] Glucose [Mass/Vol] 88 mg/dL Normal 55-199 [facility] Comment on above: Performed By: #### 2 [id number] #### [facility] [address] [place] [address] Potassium [Moles/Vol] 4.0 mmol/L Normal 3.5-5.3 [facility] Comment on above: Performed By: #### 2 [id number] #### [facility] [address] [place] [address] Sodium [Moles/Vol] 138 mmol/L Normal 135-145 [facility] Comment on above: Performed By: #### 2 [id number] #### [facility] [address] [place] [address] Urea nitrogen [Mass/Vol] 6 mg/dL Normal 5-21 [facility] Comment on above: Performed By: #### 2 [id number] #### [facility] [address] [place] [address] Urea nitrogen/Creatinine [Mass ratio] 10 No Units Normal 10-20 [facility] Comment on above: Performed By: #### 2 [id number] #### [facility] [address] [place] [address] CBC w/ Auto Diffon 4 Basophils/100 WBC (Bld) 0.7 % Normal 0.0-2.0 [facility] Comment on above: Performed By: #### 2 [id number] #### [facility] [address] [place] [address] Basophils/Leukocytes Auto (Bld) [Pure # fraction] 0.1 E9/L Normal 0.0-0.2 [facility] Comment on above: Performed By: #### 2 [id number] #### [facility] [address] [place] [address] Eosinophils (Bld) [#/Vol] 0.0 E9/L Normal 0.0-0.5 [facility] Comment on above: Performed By: #### 2 [id number] #### [facility] [address] [place] [address] Eosinophils/100 WBC (Bld) 0.2 % Normal 0.0-8.0 [facility] Comment on above: Performed By: #### 2 [id number] #### [facility] [address] [place] [address] Erythrocyte distribution width (RBC) [Ratio] 14.1 % Normal 10.9-14.2 [facility] Comment on above: Performed By: #### 2 [id number] #### [facility] [address] [place] [address] Hematocrit (Bld) [Volume fraction] 43.9 % Normal 34.0-46.0 [facility] Comment on above: Performed By: #### 2 [id number] #### [facility] [address] [place] [address] Hemoglobin (Bld) [Mass/Vol] 15.3 g/dL Normal 12.0-16.0 [facility] Comment on above: Performed By: #### 2 [id number] #### [facility] [address] [place] [address] Lymphocytes (Bld) [#/Vol] 2.7 E9/L Normal 1.0-4.0 [facility] Comment on above: Performed By: #### 2 [id number] #### [facility] [address] [place] [address] Lymphocytes/100 WBC (Bld) 34.3 % Normal 14.0-50.0 [facility] Comment on above: Performed By: #### 2 [id number] #### [facility] [address] [place] [address] MCH (RBC) [Entitic mass] 34.1 pg High 27.0-34.0 [facility] Comment on above: Performed By: #### 2 [id number] #### [facility] [address] [place] [address] MCHC (RBC) [Mass/Vol] 34.8 g/dL Normal 31.4-36.0 [facility] Comment on above: Performed By: #### 2 [id number] #### [facility] [address] [place] [address] MCV (RBC) [Entitic vol] 97.9 fL Normal 80.0-100.0 [facility] Comment on above: Performed By: #### 2 [id number] #### [facility] [address] [place] [address] Monocytes (Bld) [#/Vol] 0.3 E9/L Normal 0.2-1.0 [facility] Comment on above: Performed By: #### 2 [id number] #### [facility] [address] [place] [address] Neutrophils (Bld) [#/Vol] 4.8 E9/L Normal 2.0-7.5 [facility] Comment on above: Performed By: #### 2 [id number] #### [facility] [address] [place] [address] Neutrophils/100 WBC (Bld) 61.2 % Normal 36.0-75.0 [facility] Comment on above: Performed By: #### 2 [id number] #### [facility] [address] [place] [address] Platelet mean volume (Bld) [Entitic vol] 8.5 fL Normal 6.4-10.8 [facility] Comment on above: Performed By: #### 2 [id number] #### [facility] [address] [place] [address] Platelets (Bld) [#/Vol] 202.0 E9/L Normal 150.0-500.0 [facility] Comment on above: Performed By: #### 2 [id number] #### [facility] [address] [place] [address] RBC (Bld) [#/Vol] 4.5 E12/L Normal 4.3-5.9 [facility] Comment on above: Performed By: #### 2 [id number] #### [facility] [address] [place] [address] WBC corrected for nucl RBC Auto (Bld) [#/Vol] 7.9 E9/L Normal 4.0-11.0 [facility] Comment on above: Performed By: #### 2 [id number] #### [facility] [address] [place] [address] CHEMISTRYOrdered By: SYSTEM SYSTEM on 06-30-2023 Amphetamines Screen method >1000 ng/mL Ql (U) NEGATIVE 7 (06/30/23 2:47 PM) Normal NEGATIVE [facility] Comment on above: Interpretive Data: N egative Cutoff: <1000 ng/mL Barbiturates Screen Ql (U) NEGATIVE 8 (06/30/23 2:47 PM) Normal NEGATIVE [facility] Comment on above: Interpretive Data: N egative Cutoff: <200 ng/mL Benzodiazepines Ql (U) NEGATIVE 1 (06/30/23 2:47 PM) Normal NEGATIVE [facility] Comment on above: Interpretive Data: N egative Cutoff: <200 ng/mL Cannabinoids Screen Ql (U) NEGATIVE 6 (06/30/23 2:47 PM) Normal NEGATIVE [facility] Comment on above: Interpretive Data: N egative Cutoff: <50 ng/mL Cocaine Ql (U) NEGATIVE 2 (06/30/23 2:47 PM) Normal NEGATIVE [facility] Comment on above: Interpretive Data: N egative Cutoff: <300 ng/mL Opiates Screen Ql (U) NEGATIVE 4 (06/30/23 2:47 PM) Normal NEGATIVE [facility] Comment on above: Interpretive Data: N egative Cutoff: <300 ng/mL Phencyclidine Screen method >25 ng/mL Ql (U) NEGATIVE 5 (06/30/23 2:47 PM) Normal NEGATIVE [facility] Comment on above: Interpretive Data: N egative Cutoff: <25 ng/mL These drug screen results are to be used for medical (i.e., treatment) purposes only. Unconfirmed drug screening results must not be used for non-medical purposes (e.g., employment testing, legal testing). U Fentanyl POSITIVE 10, 11 *ABN* (06/30/23 2:47 PM) Invalid Interpretation Code NEGATIVE [facility] Comment on above: Result Comment: Crit ical Result Verified by Repeat Analysis Unconfirmed by an Alternate Method No Confirmation Requested by Physician Called to Lexi Ewing in ED at 1537 by cmk Interpretive Data: N egative Cutoff: <5 ng/mL These drug screen results are to be used for medical (i.e., treatment) purposes only. Unconfirmed drug screening results must not be used for non-medical purposes (e.g., employment testing, legal testing). Albumin [Mass/Vol] 4.4 g/dL Normal 3.3 - 5.0 gm/dL [facility] Albumin/Globulin [Mass ratio] 1.2 {ratio} Normal 1.1 - 2.2 [facility] ALP [Catalytic activity/Vol] 133 [iU]/d High 21 - 98 Int._Unit/L [facility] Chem ALT No additional P-5'-P [Catalytic activity/Vol] 135 [iU]/d High 6 - 46 Int._Unit/L [facility] Anion gap [Moles/Vol] 19 mmol/L High 6 - 16 mEq/L R emisol Chem AST [Catalytic activity/Vol] 312 [iU]/d High 5 - 43 Int._Unit/L [facility] Bilirubin [Mass/Vol] 0.8 mg/dL Normal 0.0 - 1 .1 mg/dL [facility] Bilirubin.direct [Mass/Vol] 0.3 mg/dL Normal 0.0 - 0.4 mg/dL [facility] Bilirubin.indirect [Mass or moles/Vol] 0.5 mg/dL Normal 0.1 - 0.9 mg/dL [facility] Calcium [Mass/Vol] 8.9 mg/dL Normal 8.9 - 11. 1 mg/dL [facility] Chloride [Moles/Vol] 98 mmol/L Low 101 - 1 11 mmol/L [facility] CO2 [Moles/Vol] 25 mmol/L Normal 21 - 31 mmol/L [facility] Creatinine [Mass/Vol] 0.6 mg/dL Normal 0.5 - 1.3 mg/dL [facility] eGFR 123 mL/min/1.73 m2 Normal >=59mL/mi n/1 .73 m2 [facility] Ethanol Lvl 437 mg/dL Invalid Interpretation Code <=11mg/dL [facility] Comment on above: Result Comment: Crit ical Result Verified by Repeat Analysis Critical Result S_ETOH:[id number] Called to and read back by: LEXI EWING at: 06/30/2023 15:36:41 by:CMK Globulin (S) [Mass/Vol] 3.6 g/dL Normal 1.4 - 4.0 gm/dL [facility] Glucose [Mass/Vol] 88 mg/dL Normal 55 - 199 mg/dL [facility] Potassium [Moles/Vol] 4.0 mmol/L Normal 3.5 - 5.3 mmol/L [facility] Protein [Mass/Vol] 8.0 g/dL High 6.0 - 7.8 gm/dL [facility] Sodium [Moles/Vol] 138 mmol/L Normal 135 - 145 mmol/L [facility] Urea nitrogen [Mass/Vol] 6 mg/dL Normal 5 - 21 mg/dL [facility] Chem Urea nitrogen/Creatinine [Mass ratio] 10 mg/mg Normal 10 - 20 [facility] Chem Consent for Treatmenton 06-11 Consent for Treatment [id number] FF Normal [facility] ED Note-Physicianon 06-30-19 ED Note-Physician Basic Information Time Seen: Isai Hall DO 06/30/2023 13:43 Chief Complaint Pt intoxicated. admits to drinking because left her. denies any SI or HI. pt belligerent History of Present Illness 33-year-old female to the emergency department chief complaint of intoxication. Patient reports that her left her. She reports that she has been binge drinking for the last 3 days because of this. She denies any falls or injuries. She is otherwise at her baseline health. She denies any SI or HI. She reports that she does drink a gallon of vodka a day for the last 3 days without any other intake. EMS reports that the family at the scene is frustrated with her intoxication and cannot take care of her in her current state. Review of Systems A 10 point review of systems is negative except as noted above. Medical and Surgical History: Reviewed and noted Social history: Lives at home Tobacco: Denies Physical Exam Vitals & Measurements T: 37 ?C(Oral) HR: 61(Peripheral) RR: 14 BP: 122/105 SpO2: 98% HT: 156 cm WT: 72.2 kg BMI: 29.67 VITALS: I have reviewed the triage vital signs. GENERAL: Tearful adult female yelling NEURO: Alert and oriented x3. Moves all extremities. Face is symmetric and expressive. EYES: PERRL. No scleral icterus or conjunctival injection. No discharge. HENT: Normocephalic, atraumatic. Hearing is grossly intact. Nares grossly patent and without discharge. Mucous membranes moist. NECK: No JVD. Patient moves neck without restriction. CARDIO: Rhythm regular. Normal rate. No murmur, rub, or gallop. Pulses equal bilaterally in the upper and lower extremity. No lower extremity edema. PULM: Lungs clear to auscultation in all tejeda. No wheezes, rales, or rhonchi. No conversational dyspnea. No splinting, stridor, or accessory muscle use. GI/: Abdomen is soft and non-tender. Normoactive bowel sounds. EXTREMITIES: Symmetric muscle bulk. No joint swelling. No clubbing, cyanosis, or deformity. SKIN: Warm and dry. Normal turgor. No rash or lesions appreciated. PSYCH: Angry Medical Decision Making 33-year-old female to the emergency department with chief complaint of alcohol intoxication. Vital stable, the patient is afebrile. Neurologic examination is nonfocal. Will order basic labs. Zofran and fluids are ordered. CBC and chemistry without significant abnormalities. She has some ALT and AST that are elevated in the setting of her drinking. Her ethanol is 437. Drug screen positive for fentanyl. Urine without any evidence of infection. hCG negative. Patient became agitated after her workup. She is wanting to leave. She does not have capacity at this time due to her alcohol intoxication. Family is unwilling to come pick her up. For her safety she was medicated. Care was signed out to Dr. Guzman awaiting sober evaluation or sober ride. Assessment/Plan Acute alcohol intoxication (F10.929: Alcohol use, unspecified with intoxication, unspecified) Drinking binge (Z78.9: Other specified health status) Orders: diphenhydrAMINE, 25 mg = 0.5 mL, Injection, IntraMuscular, Once, Stop date 06/30/23 15:41:00 EDT, STAT, Start date 06/30/23 15:41:00 EDT, 06/30/23 15:41:00 EDT diphenhydrAMINE, 50 mg = 1 mL, Injection, IV Push, Once, Stop date 06/30/23 15:46:00 EDT, Start date 06/30/23 15:46:00 EDT haloperidol, 5 mg = 1 mL, Injection, IntraMuscular, Once, Stop date 06/30/23 16:00:00 EDT, Routine, Start date 06/30/23 16:00:00 EDT, 06/30/23 15:41:00 EDT lorazepam, 1 mg = 0.5 mL, Injection, IV Push, Once, Stop date 06/30/23 14:59:00 EDT, STAT, Start date 06/30/23 14:59:00 EDT, 06/30/23 14:59:00 EDT ondansetron, 4 mg = 2 mL, Injection, IV Push, Once, Stop date 06/30/23 13:46:00 EDT, STAT, Start date 06/30/23 13:46:00 EDT, 06/30/23 13:46:00 EDT Sodium Chloride 0.9% intravenous solution, 1,000 mL, Soln-IV, IV, Once, Stop date 06/30/23 13:45:00 EDT, STAT, Start date 06/30/23 13:45:00 EDT, Infuse over 61, minute(s) thiamine + Sodium Chloride 0.9% intravenous solution 50 mL, 100 mg = 1 mL, Injection, IV Piggyback, Once, Stop date 06/30/23 14:00:00 EDT, STAT, Start date 06/30/23 14:00:00 EDT, 51 mL/hr, Infuse over 60 minute(s) Basic Metabolic Panel Beta hCG Qual CBC w/ Auto Diff Continuous Pulse Oximetry Drug Screen Urine ED Cardiac Monitoring eGFR Ethanol Level Extra Blue Tube Hepatic Function Panel Routine Capillary Glucose POC Saline Lock Insert UA with Cult Rflx Medications Administered Given Ativan 2 mg/mL Injection, 1 mg, IV Push [id number] [F], 50 mg, IV Push Haldol 5 mg/mL Injection, 5 mg, IntraMuscular NS 1000 ml Bolus, 1000 mL, IV Sodium Chloride 0.9% IV Paula 50 mL [F] 50 mL + [id number] [F] 100 mg, IV Piggyback Zofran 4 mg/2 mL Injection, 4 mg, IV Push Disposition Plan Patient Discharge Condition Stable Discharge Prescription List Prescriptions No active prescription medications Follow-up No qualifying data available Problem List/Past Medical History Ongoin (more content not included)... Normal [facility] Comment on above: Result Comment: Elec tronically Signed By: Isai Hall DO\sri\Date and Time Signed: 06/30/23 18:08 EDT Ethanolon 06-30-2023 Ethanol Lvl 437 mg/dL Abnormal <=11 [facility] Comment on above: Result Comment: Crit ical Result Verified by Repeat Analysis Critical Result S_ETOH:[id number] Called to and read back by: LEXI EWING at: 06/30/2023 15:36:41 by:CALLIE Performed By: #### 2 [id number] #### [facility] [address] [place] [address] HEMATOLOGYOrdered By: SYSTEM SYSTEM on 06-30-2023 Basophils/100 WBC (Bld) 0.7 % Normal 0.0 - 2.0 % Remisol Heme Basophils/Leukocytes Auto (Bld) [Pure # fraction] 0.1 E9/L Normal 0.0 - 0.2 E9/L [facility]e Eosinophils (Bld) [#/Vol] 0.0 E9/L Normal 0.0 - 0.5 E9/L [facility]e Eosinophils/100 WBC (Bld) 0.2 % Normal 0.0 - 8.0 % [facility]e Erythrocyte distribution width (RBC) [Ratio] 14.1 % Normal 10.9 - 14.2 % [facility]e Hematocrit (Bld) [Volume fraction] 43.9 % Normal 34.0 - 46.0 % [facility] Heme Hemoglobin (Bld) [Mass/Vol] 15.3 g/dL Normal 12.0 - 16.0 gm/dL [facility]e Lymphocytes (Bld) [#/Vol] 2.7 E9/L Normal 1.0 - 4.0 E9/L [facility]e Lymphocytes/100 WBC (Bld) 34.3 % Normal 14.0 - 50.0 % [facility]e MCH (RBC) [Entitic mass] 34.1 pg High 27.0 - 34.0 pg Rem[facility] Heme MCHC (RBC) [Mass/Vol] 34.8 g/dL Normal 31.4 - 36.0 gm/dL [facility]e MCV (RBC) [Entitic vol] 97.9 fL Normal 80.0 - 100.0 fL [facility] Monocytes (Bld) [#/Vol] 0.3 E9/L Normal 0.2 - 1.0 E9/L [facility]e Monocytes/100 WBC (Bld) 3.6 % Low 4.0 - 14.0 % [facility] Neutrophils (Bld) [#/Vol] 4.8 E9/L Normal 2.0 - 7.5 E9/L [facility]e Neutrophils/100 WBC (Bld) 61.2 % Normal 36.0 - 75.0 % [facility] Platelet mean volume (Bld) [Entitic vol] 8.5 fL Normal 6.4 - 10.8 fL [facility]e Platelets (Bld) [#/Vol] 202.0 E9/L Normal 150.0 - 500.0 E9/L [facility]e RBC (Bld) [#/Vol] 4.5 E12/L Normal 4.3 - 5.9 E12/L [facility] WBC corrected for nucl RBC Auto (Bld) [#/Vol] 7.9 E9/L Normal 4.0 - 11.0 E9/L [facility]e Hep Func Panelon 06-30-2023 Albumin [Mass/Vol] 4.4 g/dL Normal 3.3-5.0 [facility] Comment on above: Performed By: #### 2 [id number] #### [facility] [address] [place] [address] Albumin/Globulin (S) [Mass conc ratio] 1.2 Normal 1.1-2.2 [facility] Comment on above: Performed By: #### 2 [id number] #### [facility] [address] [place] [address] ALP [Catalytic activity/Vol] 133 Int._Unit/L High 21-98 [facility] Comment on above: Performed By: #### 2 [id number] #### [facility] [address] [place] [address] ALT No additional P-5'-P [Catalytic activity/Vol] 135 Int._Unit/L High 6-46 [facility] Comment on above: Performed By: #### 2 [id number] #### [facility] [address] [place] [address] AST [Catalytic activity/Vol] 312 Int._Unit/L High 5-43 [facility] Comment on above: Performed By: #### 2 [id number] #### [facility] [address] [place] [address] Bilirubin [Mass/Vol] 0.8 mg/dL Normal 0.0-1.1 [facility] Comment on above: Performed By: #### 2 [id number] #### [facility] [address] [place] [address] Bilirubin.direct [Mass/Vol] 0.3 mg/dL Normal 0.0-0.4 [facility] Comment on above: Performed By: #### 2 [id number] #### [facility] [address] [place] [address] Bilirubin.indirect [Mass or moles/Vol] 0.5 mg/dL Normal 0.1-0.9 [facility] Comment on above: Performed By: #### 2 [id number] #### [facility] [address] [place] [address] Globulin (S) [Mass/Vol] 3.6 g/dL Normal 1.4-4.0 [facility] Comment on above: Performed By: #### 2 [id number] #### [facility] [address] [place] [address] Protein [Mass/Vol] 8.0 g/dL High 6.0-7.8 [facility] Comment on above: Performed By: #### 2 [id number] #### [facility] [address] [place] [address] Pre-Arrival Noteon Pre-Arrival Note Normal [facility] Progress Note-Nurseon 2023 Progress Note-Nurse Pt still resting. no outbursts Normal [facility] Progress Note-Nurse Pt resting and no lo nger belligerent Normal [facility] Progress Note-Nurse Pt accidentally ripp ed out iv. will not keep vital equipment attached. Normal [facility] Progress Note-Nurse not leaving vitals machine on. will wait til pt more calm to leave equipment on Normal [facility] SEROLOGYOrdered By: Ori Otero on 06-30-2023 Beta HCG ( test) Ql Negative (06/30/23 2:42 PM) Normal [facility] [place] Man Sero U Drug Screenon 06-30-2023 Amphetamines Screen method >1000 ng/mL Ql (U) Negative Normal NEGATIVE [facility] Comment on above: Result Comment: Nega tive Cutoff: <1000 ng/mL Performed By: #### 2 [id number] ####[facility] [address] [place] [address] Barbiturates Screen Ql (U) Negative Normal NEGATIVE [facility] Comment on above: Result Comment: Nega tive Cutoff: <200 ng/mL Performed By: #### 2 286168 ####[facility] [address] [place] [address] Benzodiazepines Ql (U) Negative Normal NEGATIVE [facility] Comment on above: Result Comment: Nega tive Cutoff: <200 ng/mL Performed By: #### 2 [id number] ####[facility] [address] [place] [address] Cannabinoids Screen Ql (U) Negative Normal NEGATIVE [facility] Comment on above: Result Comment: Nega tive Cutoff: <50 ng/mL Performed By: #### 2 435605 ####[facility] [address] [place] [address] Cocaine Ql (U) Negative Normal NEGATIVE [facility] Comment on above: Result Comment: Nega tive Cutoff: <300 ng/mL Performed By: #### 2 996157 ####[facility] [address] [place] [address] Opiates Screen Ql (U) Negative Normal NEGATIVE [facility] Comment on above: Result Comment: Nega tive Cutoff: <300 ng/mL Performed By: #### 2 [id number] ####[facility] [address] [place] [address] Phencyclidine Screen method >25 ng/mL Ql (U) Negative Normal NEGATIVE [facility] Comment on above: Result Comment: Nega tive Cutoff: <25 ng/mL These drug screen results are to be used for medical (i.e., treatment) purposes only. Unconfirmed drug screening results must not be used for non-medical purposes (e.g., employment testing, legal testing). Performed By: #### 2 [id number] ####[facility] [address] [place] [address] U Fentanyl Positive Abnormal NEGATIVE [facility] Comment on above: Result Comment: Crit ical Result Verified by Repeat Analysis Unconfirmed by an Alternate Method No Confirmation Requested by Physician Called to Lexi Ewing in ED at 1537 by cmk Negative Cutoff: <5 ng/mL These drug screen results are to be used for medical (i.e., treatment) purposes only. Unconfirmed drug screening results must not be used for non-medical purposes (e.g., employment testing, legal testing). Performed By: #### 2 [id number] ####[facility] [address] [place] [address] UA with Cult Rflxon 06-30-19 24 Bilirubin Ql (U) Negative Normal Negative [facility] Comment on above: Performed By: #### 4 [id number] #### [facility] [address] [place] [address] Clarity (U) Clear Normal Clear [facility] Comment on above: Performed By: #### 4 [id number] #### [facility] [address] [place] [address] Color (U) Colorless Abnormal Yellow [facility] Comment on above: Result Comment: Micr oscopic readings are only performed on those samples that meet specific criteria set forth by [facility]. Performed By: #### 4 [id number] #### [facility] [address] [place] [address] Glucose Ql (U) Negative Normal Negative [facility] Comment on above: Performed By: #### 4 [id number] #### [facility] [address] [place] [address] Hemoglobin Auto test strip (U) [Mass/Vol] Negative Normal Negative [facility] Comment on above: Performed By: #### 4 [id number] #### [facility] [address] [place] [address] Ketones Auto test strip Ql (U) Negative Normal Negative [facility] Comment on above: Performed By: #### 4 [id number] #### [facility] [address] [place] [address] Leukocyte esterase Auto test strip Ql (U) Negative Normal Negative [facility] Comment on above: Performed By: #### 4 [id number] #### [facility] [address] [place] [address] Nitrite Auto test strip Ql (U) Negative Normal Negative [facility] Comment on above: Performed By: #### 4 [id number] #### [facility] [address] [place] [address] pH (U) 6.0 [pH] Invalid Interpretation Code 5.0-9.0 [facility] Comment on above: Performed By: #### 4 [id number] #### [facility] [address] [place] [address] Protein Ql (U) Negative Normal Negative [facility] Comment on above: Performed By: #### 4 [id number] #### [facility] [address] [place] [address] Specific gravity (U) [Rel density] 1.004 Invalid Interpretation Code 1.005-1.030 [facility] Comment on above: Performed By: #### 4 [id number] #### [facility] [address] [place] [address] Urobilinogen (U) [Mass/Vol] Negative Normal Negative [facility] Comment on above: Performed By: #### 4 [id number] #### [facility] [address] [place] [address] Type of Urine collection method Clean Catch Normal [facility] Comment on above: Performed By: #### 4 [id number] #### [facility] [address] [place] [address] URINALYSISOrdered By: SYSTEM SYSTEM on 06-30-2023 Bilirubin Ql (U) Negative Normal Negativemg/ d L [facility] UA Auto SS Clarity (U) Clear (06/30/23 2:47 PM) Normal [facility] UA Auto SS Color (U) Colorless 3 *ABN* (06/30/23 2:47 PM) Invalid Interpretation Code Yellow [facility] UA Auto SS Comment on above: Interpretive Data: M icroscopic readings are only performed on those samples that meet specific criteria set forth by [facility]. Glucose Ql (U) Negative Normal Negativemg/d L [facility] UA Auto SS Hemoglobin Auto test strip (U) [Mass/Vol] Negative Normal Negativemg/d L [facility] UA Auto SS Ketones Auto test strip Ql (U) Negative Normal Negativemg/d L [facility] UA Auto SS Leukocyte esterase Auto test strip Ql (U) Negative Normal NegativeLeu/ uL [facility] UA Auto SS Nitrite Auto test strip Ql (U) Negative Normal Negativemg/d L [facility] UA Auto SS pH (U) 6.0 *NA* (06/30/23 2:47 PM) Invalid Interpretation Code 5.0 - 9.0 [facility] UA Auto SS Protein Ql (U) Negative Normal Negativemg/d L [facility] UA Auto SS Specific gravity (U) [Rel density] 1.004 *NA* (06/30/23 2:47 PM) Invalid Interpretation Code 1.005 - 1.030 [facility] UA Auto SS Urobilinogen (U) [Mass/Vol] Negative Normal Negativemg/d L [facility] UA Auto SS URINALYSISOrdered By: Isai Hall on 06-30-2023 UA Spec Desc Clean Catch (06/30/23 2:47 PM) Normal [facility] UA Auto SS eGFRon 06-30-2023 eGFR 123 mL/min/1.73 m2 Normal >=59 [facility] Comment on above: Order Comment: Order added by Discern Expert. Performed By: #### 1 [id number] #### [facility] [address] [place] [address] C Urineon 06-20-2023 Bacteria identified Cx Nom (U) Normal [facility] Comment on above: Performed By: #### 2 [id number] ####[facility] [address] [facility] [place] [place] [address] Chlam/GC/Trich,NAAon 024 C. trachomatis rRNA MOISES+probe Ql (Unsp spec) Negative Invalid Interpretation Code Negative [facility] Comment on above: Performed By: #### 1 [id number], [id number] ####[facility] [address] [facility] [place] [address] N. gonorrhoeae rRNA MOISES+probe Ql (Unsp spec) Negative Invalid Interpretation Code Negative [facility] Comment on above: Performed By: #### 1 [id number], [id number] ####[facility] [address] [place] [address], [place] [address] T. vaginalis rRNA MOISES+probe Ql (Unsp spec) Positive Abnormal Negative [facility] Comment on above: Result Comment: Perf ormed at: =G [facility] [address] [place] [address] Jack MD [id number] MD Pete Norman Performed By: #### 1 [id number], [id number] ####[facility] [address] [facility] [place] [address] Vaginitis/Vaginosis, DNA Pro beon 06-20-2023 Melvin sp rRNA Probe Ql (Vag fld) Negative Invalid Interpretation Code Negative [facility] Comment on above: Performed By: #### 1 [id number], [id number] ####[facility] [address] [facility] [place] [address] G. vaginalis rRNA Probe Ql (Genital specimen) Positive Abnormal Negative [facility] Comment on above: Performed By: #### 1 [id number], [id number] ####[facility] [address] [facility] [place] [address] T. vaginalis rRNA Probe Ql (Genital specimen) Positive Abnormal Negative [facility] Comment on above: Result Comment: Perf ormed at: CB [facility] [address] [place], [place] [id number] PhD Sriram Arceo Performed By: #### 1 [id number], [id number] ####[facility] [address] [place] [address] Ambulatory Visit Summaryon 0 06-17-2023 Ambulatory Visit Summary Normal [facility] Family Medicine Office/Clini c Noteon 06-17-2023 Family Medicine Office/Clinic Note Normal [facility] Comment on above: Result Comment: Elec tronically Signed By: Rainer HARO, Mike Rushing\.br\Date and Time Signed: 06/17/23 16:06 EDT Patient Educationon 06-17-19 Patient Education Normal [facility] C Urineon 06-05-2023 Bacteria identified Cx Nom (U) Normal [facility] Comment on above: Performed By: #### 4 [id number], [id number] ####[facility] [address] [place] [address] Discharge Instructionson Discharge Instructions [id number] F Normal [facility] ED Clinical Summaryon 2023 ED Clinical Summary Normal [facility] ED Note-Physicianon 06-04-19 ED Note-Physician Normal [facility] Comment on above: Result Comment: Elec tronically Signed By: Elliott Hicks PA-C\.br\Date and Time Signed: 06/03/23 23:01 EDT\.br\Electronically Co-Signed By: Kerry Linton DO\.br\Date and Time Co-Signed: 06/03/23 23:19 EDT ED Patient Education Noteon 06-04-2023 ED Patient Education Note Normal [facility] ED Patient Summaryon 024 ED Patient Summary Normal [facility] B hCG Qualon 06-03-2023 Beta HCG ( test) Ql Negative Normal [facility] Comment on above: Order Comment: Phleb Lorie attempted to draw and was unsuccessful, phleb Diamante is on her way to draw. [id number] 06/03/2023 21:06:55 EDT Performed By: #### 2 [id number], [id number], 4857477, 8407642, 6146922, [id number] ####[facility] [address] [place] [address] BMPon 06-03-2023 Anion gap [Moles/Vol] 9 mmol/L Normal 6-16 [facility] Comment on above: Performed By: #### 2 6846419, 1979099, 0773288, 4862430, 7362678, [id number] ####[facility] [address] [address] Calcium [Mass/Vol] 8.9 mg/dL Normal 8.9-11.1 [facility] Comment on above: Performed By: #### 2 [id number], 2371105, 2412504, 3669218, 1640527, 21990670 ####[facility] [address] [place] [address] Chloride [Moles/Vol] 108 mmol/L Normal 101-111 [facility] Comment on above: Performed By: #### 2 [id number], 2439789, 0082142, 8958137, 3888236, 17505622 ####[facility] [address] [place] [address] CO2 [Moles/Vol] 28 mmol/L Normal 21-31 [facility] Comment on above: Performed By: #### 2 [id number], 2547643, 5056625, 8627523, 4307815, [id number] ####[facility] [address] [place] [address] Creatinine [Mass/Vol] 0.6 mg/dL Normal 0.5-1.3 [facility] Comment on above: Performed By: #### 2 6050950, 7667420, 9439917, 4859545, 1933519, [id number] ####[facility] [address] [place] [address] Glucose [Mass/Vol] 89 mg/dL Normal 55-199 [facility] Comment on above: Performed By: #### 2 9080873, 1196475, 9801789, 1941400, 0515011, 21003275 ####[facility] [address] [place] [address] Potassium [Moles/Vol] 4.0 mmol/L Normal 3.5-5.3 [facility] Comment on above: Performed By: #### 2 5164317, 7111889, 3604572, 2146753, 2555261, 91480245 ####[facility] [address] [place] [address] Sodium [Moles/Vol] 141 mmol/L Normal 135-145 [facility] Comment on above: Performed By: #### 2 3168638, 3074385, 7489245, 0305674, 2073407, 70528481 ####[facility] [address] [place] [address] Urea nitrogen [Mass/Vol] mg/dL Low 5-21 [facility] Comment on above: Performed By: #### 2 6051378, 0088363, 2460491, 7180909, 8082764, 13931101 ####[facility] [address] [place] [address] Urea nitrogen/Creatinine [Mass ratio] 7 No Units Low 10-20 [facility] Comment on above: Performed By: #### 2 9550236, 1091844, 6235539, 6257730, 5281447, 67910179 ####[facility] [address] [place] [address] CBC w/ Auto Diffon 4 Basophils/100 WBC (Bld) 0.9 % Normal 0.0-2.0 [facility] Comment on above: Performed By: #### 2 2252876, 3151177, 8528929, 4498871, 1629370, 22243019 ####[address] [address] Basophils/Leukocytes Auto (Bld) [Pure # fraction] 0.0 E9/L Normal 0.0-0.2 [facility] Comment on above: Performed By: #### 2 7461746, 4194076, 7013584, 3932622, 7759603, 69927247 ####[address] [address] Eosinophils (Bld) [#/Vol] 0.0 E9/L Normal 0.0-0.5 [facility] Comment on above: Performed By: #### 2 5317761, 4422999, 7200320, 1463026, 3740245, 65617241 ####[place] 9[address]2757 Eosinophils/100 WBC (Bld) 0.7 % Normal 0.0-8.0 [facility] Comment on above: Performed By: #### 2 3020915, 2348907, 3939199, 1065444, 8239929, 69409869 ####[place] 9142757 Erythrocyte distribution width (RBC) [Ratio] 13.8 % Normal 10.9-14.2 [facility] Comment on above: Performed By: #### 2 6380409, 6463779, 8913641, 8972003, 1356687, 14951817 ####[place] 9[address]2757 Hematocrit (Bld) [Volume fraction] 39.2 % Normal 34.0-46.0 [facility] Comment on above: Performed By: #### 2 8020260, 1254529, 7928924, 3505247, 4813169, 91562970 ####[place] 9[address]2757 Hemoglobin (Bld) [Mass/Vol] 13.0 g/dL Normal 12.0-16.0 [facility] Comment on above: Performed By: #### 2 7128381, 0927015, 9353157, 2248616, 8767919, 06237012 ####[address] [place] [address] Lymphocytes (Bld) [#/Vol] 1.7 E9/L Normal 1.0-4.0 [facility] Comment on above: Performed By: #### 2 3646466, 1646645, 5694313, 4169659, 2479398, 79132085 ####[address] [address] Lymphocytes/100 WBC (Bld) 37.8 % Normal 14.0-50.0 [facility] Comment on above: Performed By: #### 2 6758048, 0269568, 9262667, 9904620, 7941565, 00031805 ####[place] 9142757 MCH (RBC) [Entitic mass] 33.5 pg Normal 27.0-34.0 [facility] Comment on above: Performed By: #### 2 1615290, 9834504, 2772625, 0727708, 9090154, 52661656 ####[place] 9142757 MCHC (RBC) [Mass/Vol] 33.2 g/dL Normal 31.4-36.0 [facility] Comment on above: Performed By: #### 2 8642338, 7594196, 2135441, 7212852, 0266318, 96583288 ####[place] 9142757 MCV (RBC) [Entitic vol] 100.9 fL High 80.0-100.0 [facility] Comment on above: Performed By: #### 2 3623622, 5025332, 7211135, 2256237, 9294241, 15939782 ####[address] [address] Monocytes (Bld) [#/Vol] 0.3 E9/L Normal 0.2-1.0 [facility] Comment on above: Performed By: #### 2 9095732, 1566189, 6541823, 6801593, 4974775, 00613083 ####[facility] [address] [place] [address] Neutrophils (Bld) [#/Vol] 2.5 E9/L Normal 2.0-7.5 [facility] Comment on above: Performed By: #### 2 3195500, 2245199, 8358834, 8780153, 5770034, 38050336 ####[place] [address] [place] [address] Neutrophils/100 WBC (Bld) 53.9 % Normal 36.0-75.0 [facility] Comment on above: Performed By: #### 2 6442984, 9414697, 6105830, 5565161, 3104729, 55232605 ####[address] [address] Platelet 149.0 E9/L Low 150.0-500.0 [facility] Comment on above: Performed By: #### 2 8541578, 7023525, 1344619, 6736801, 6293727, 24108365 ####[address] [address] Platelet mean volume (Bld) [Entitic vol] 8.3 fL Normal 6.4-10.8 [facility] Comment on above: Performed By: #### 2 9332049, 1287531, 0749203, 4593051, 9966595, 69318192 ####[address] [address] RBC (Bld) [#/Vol] 3.9 E12/L Low 4.3-5.9 [facility] Comment on above: Performed By: #### 2 7464556, 9882935, 4793389, 8958694, 3835059, 74520745 ####[place] [address] [place] [address] WBC corrected for nucl RBC Auto (Bld) [#/Vol] 4.6 E9/L Normal 4.0-11.0 [facility] Comment on above: Performed By: #### 2 9581879, 1296402, 8608813, 6992073, 8561197, 28802553 ####[facility] [address] [place] [id number] CHEMISTRYOrdered By: SYSTEM SYSTEM on 06-03-2023 Albumin [Mass/Vol] 4.0 g/dL Normal 3.3 - 5.0 gm/dL [facility] Albumin/Globulin [Mass ratio] 1.3 {ratio} Normal 1.1 - 2.2 [facility] ALP [Catalytic activity/Vol] 133 [iU]/d High 21 - 98 Int._Unit/L [facility] ALT No additional P-5'-P [Catalytic activity/Vol] 131 [iU]/d High 6 - 46 Int._Unit/L [facility] Anion gap [Moles/Vol] 9 mmol/L Normal 6 - 16 mEq/L R emisol Chem AST [Catalytic activity/Vol] 192 [iU]/d High 5 - 43 Int._Unit/L [facility] Bilirubin [Mass/Vol] 0.4 mg/dL Normal 0.0 - 1 .1 mg/dL [facility] Bilirubin.direct [Mass/Vol] 0.1 mg/dL Normal 0.0 - 0.4 mg/dL [facility] Bilirubin.indirect [Mass or moles/Vol] 0.3 mg/dL Normal 0.1 - 0.9 mg/dL [facility] Calcium [Mass/Vol] 8.9 mg/dL Normal 8.9 - 11. 1 mg/dL [facility] Chloride [Moles/Vol] 108 mmol/L Normal 101 - 1 11 mmol/L [facility] CO2 [Moles/Vol] 28 mmol/L Normal 21 - 31 mmol/L [facility] Creatinine [Mass/Vol] 0.6 mg/dL Normal 0.5 - 1.3 mg/dL [facility] eGFR 123 mL/min/1.73 m2 Normal >=59mL/mi n/1 .73 m2 [facility] Globulin (S) [Mass/Vol] 3.1 g/dL Normal 1.4 - 4.0 gm/dL [facility] Glucose [Mass/Vol] 89 mg/dL Normal 55 - 199 mg/dL [facility] Lipase [Catalytic activity/Vol] 25 U/L Normal 13 - 58 unit/L [facility] Potassium [Moles/Vol] 4.0 mmol/L Normal 3.5 - 5.3 mmol/L [facility] Protein [Mass/Vol] 7.1 g/dL Normal 6.0 - 7.8 gm/dL [facility] Sodium [Moles/Vol] 141 mmol/L Normal 135 - 145 mmol/L [facility] Urea nitrogen [Mass/Vol] mg/dL Low 5 - 21 mg/dL [facility] Urea nitrogen/Creatinine [Mass ratio] 7 mg/mg Low 10 - 20 [facility] Consent for Treatmenton 05-13 Consent for Treatment [id number] F Normal [facility] HEMATOLOGYOrdered By: Arlene Contreras on 06-03-2023 Basophils/100 WBC (Bld) 0.9 % Normal 0.0 - 2.0 % [facility]e Basophils/Leukocytes Auto (Bld) [Pure # fraction] 0.0 E9/L Normal 0.0 - 0.2 E9/L [facility] Eosinophils (Bld) [#/Vol] 0.0 E9/L Normal 0.0 - 0.5 E9/L [facility] Eosinophils/100 WBC (Bld) 0.7 % Normal 0.0 - 8.0 % [facility] Erythrocyte distribution width (RBC) [Ratio] 13.8 % Normal 10.9 - 14.2 % [facility] Hematocrit (Bld) [Volume fraction] 39.2 % Normal 34.0 - 46.0 % [facility] Hemoglobin (Bld) [Mass/Vol] 13.0 g/dL Normal 12.0 - 16.0 gm/dL [facility] Lymphocytes (Bld) [#/Vol] 1.7 E9/L Normal 1.0 - 4.0 E9/L [facility] Lymphocytes/100 WBC (Bld) 37.8 % Normal 14.0 - 50.0 % [facility] MCH (RBC) [Entitic mass] 33.5 pg Normal 27.0 - 34.0 pg [facility] MCHC (RBC) [Mass/Vol] 33.2 g/dL Normal 31.4 - 36.0 gm/dL [facility] MCV (RBC) [Entitic vol] 100.9 fL High 80.0 - 100.0 fL [facility] Monocytes (Bld) [#/Vol] 0.3 E9/L Normal 0.2 - 1.0 E9/L [facility] Monocytes/100 WBC (Bld) 6.7 % Normal 4.0 - 14.0 % [facility] Neutrophils (Bld) [#/Vol] 2.5 E9/L Normal 2.0 - 7.5 E9/L [facility] Neutrophils/100 WBC (Bld) 53.9 % Normal 36.0 - 75.0 % [facility] Platelet 149.0 E9/L Low 150.0 - 500.0 E9/L [facility] Platelet mean volume (Bld) [Entitic vol] 8.3 fL Normal 6.4 - 10.8 fL [facility] RBC (Bld) [#/Vol] 3.9 E12/L Low 4.3 - 5.9 E12/L [facility] WBC corrected for nucl RBC Auto (Bld) [#/Vol] 4.6 E9/L Normal 4.0 - 11.0 E9/L [facility] Hep Func Panelon 06-03-2023 Albumin [Mass/Vol] 4.0 g/dL Normal 3.3-5.0 [facility] Comment on above: Performed By: #### 2 8643070, 0624181, 9802301, 3040959, 9425838, 19844310 ####[facility] [address] [place] [address] Albumin/Globulin (S) [Mass conc ratio] 1.3 Normal 1.1-2.2 [facility] Comment on above: Performed By: #### 2 7050106, 5693886, 3089700, 8998334, 4198977, 00535938 ####[facility] [address] [place] [address] ALP [Catalytic activity/Vol] 133 Int._Unit/L High 21-98 [facility] Comment on above: Performed By: #### 2 9477554, 2118070, 8090390, 7166452, 6411869, 89399826 ####[facility] [address] [place] [address] ALT No additional P-5'-P [Catalytic activity/Vol] 131 Int._Unit/L [facility] 6-46 [facility] Comment on above: Performed By: #### 2 1307903, 1846948, 5546455, 5505696, 9971926, 30937372 ####[place] [address] [place] 6654357 AST [Catalytic activity/Vol] 192 Int._Unit/L [facility] 5-43 [facility] Comment on above: Performed By: #### 2 9540343, 8045494, 3140673, 4931542, 0035701, 03634203 ####[address] [address] Bilirubin [Mass/Vol] 0.4 mg/dL Normal 0.0-1.1 [facility] Comment on above: Performed By: #### 2 4129339, 5409958, 5158098, 6598872, 4631239, 54975112 ####[place] [address]2757 Bilirubin.direct [Mass/Vol] 0.1 mg/dL Normal 0.0-0.4 [facility] Comment on above: Performed By: #### 2 5676757, 6460423, 4624121, 7832734, 7897448, 72064464 ####[place] [address]2757 Bilirubin.indirect [Mass or moles/Vol] 0.3 mg/dL Normal 0.1-0.9 [facility] Comment on above: Performed By: #### 2 9759387, 3220766, 8463070, 2172090, 5884033, 77579072 ####[facility] [address] [place] [address] Globulin (S) [Mass/Vol] 3.1 g/dL Normal 1.4-4.0 [facility] Comment on above: Performed By: #### 2 5468821, 3285529, 1964237, 5756446, 8279969, 02648902 ####[facility] [address] [place] [address] Protein [Mass/Vol] 7.1 g/dL Normal 6.0-7.8 [facility] Comment on above: Performed By: #### 2 0188792, 5819923, 0815813, 3578166, 0039604, 31752232 ####[facility] [address] [place] [address] Lipase Levelon 06-03-2023 Lipase [Catalytic activity/Vol] 25 U/L Normal 13-58 [facility] Comment on above: Performed By: #### 2 6232891, 4004939, 2316409, 7653523, 7260449, 65687121 ####[address] [address] SEROLOGYOrdered By: Domitila gaffney on 06-03-2023 Beta HCG ( test) Ql Negative (06/03/23 9:12 PM) Normal [facility] [place] Man Sero UA with Cult Rflxon 06-03-19 24 Bacteria Auto Ql (U) 1+ [id number] Abnormal Trace [facility] Comment on above: Performed By: #### 4 101323483, 7345248 ####[address] [address] Bilirubin Ql (U) Negative Normal Negative [facility] Comment on above: Performed By: #### 4 516605916, 7656951 ####[address] [address] Clarity (U) Clear Normal Clear [facility] Comment on above: Performed By: #### 4 406146794, 6096757 ####[address] [address] Color (U) Light-Yellow Normal Yellow [facility] Comment on above: Result Comment: Micr oscopic readings are only performed on those samples that meet specific criteria set forth by [facility]. Performed By: #### 4 809500641, 2407767 ####[facility] [address] [place] [address] Epithelial cells.squamous Auto (Urine sed) [#/Area] 0-2 Normal 0-2 [facility] Comment on above: Performed By: #### 4 973626079, 9083003 ####[facility] [address] [place] [address] Glucose Ql (U) Negative Normal Negative [facility] Comment on above: Performed By: #### 4 341270954, 9956503 ####[facility] [address] [place] [address] Hemoglobin Auto test strip (U) [Mass/Vol] Trace Abnormal Negative [facility] Comment on above: Performed By: #### 4 471238108, 8157473 ####[address] [address] Ketones Auto test strip Ql (U) Negative Normal Negative [facility] Comment on above: Performed By: #### 4 276599998, 3237363 ####[facility] [address] [place] [address] Leukocyte esterase Auto test strip Ql (U) 250 Oracio/uL Abnormal Negative [facility] Comment on above: Performed By: #### 4 342842837, 2629243 ####[facility] [address] [place] [address] Mucus Auto Ql (U) Trace Normal Negative [facility] Comment on above: Performed By: #### 4 247329849, 6022303 ####[facility] [address] [place] [address] Nitrite Auto test strip Ql (U) Negative Normal Negative [facility] Comment on above: Performed By: #### 4 920012563, 4641518 ####[facility] [address] [place] [address] pH (U) 6.0 [pH] Invalid Interpretation Code 5.0-9.0 [facility] Comment on above: Performed By: #### 4 807019550, 8939814 ####[facility] [address] [place] [address] Protein Ql (U) Negative Normal Negative [facility] Comment on above: Performed By: #### 4 315481212, 4601752 ####[address] [address] RBC Ql (U) 0-3 Normal 0-3 [facility] Comment on above: Performed By: #### 4 901684329, 1764602 ####[address] [address] Specific gravity (U) [Rel density] 1.005 Invalid Interpretation Code 1.005-1.030 [facility] Comment on above: Performed By: #### 4 635763320, 7589239 ####[address] [address] Urobilinogen (U) [Mass/Vol] Negative Normal Negative [facility] Comment on above: Performed By: #### 4 484870746, 3037491 ####[place] [address]2757 WBC Auto (Urine sed) [#/Area] 16-25 Abnormal 0-5 [facility] Comment on above: Performed By: #### 4 700830308, 3019249 ####[place] [address]2757 Type of Urine collection method Clean Catch Normal [facility] Comment on above: Performed By: #### 4 058163880, 2690764 ####[address] [address] URINALYSISOrdered By: SYSTEM SYSTEM on 06-03-2023 Bacteria Auto Ql (U) 1+ graded/HPF Invalid Interpretation Code Tracegraded/ HPF FT UA Auto SS Bilirubin Ql (U) Negative Normal Negativemg/ d L FT UA Auto SS Clarity (U) Clear (06/03/23 9:07 PM) Normal Clear [facility] UA Auto SS Color (U) Light-Yellow 1 (06/03/23 9:07 PM) Normal Yellow [facility] UA Auto SS Comment on above: Interpretive Data: M icroscopic readings are only performed on those samples that meet specific criteria set forth by [facility]. Epithelial cells.squamous Auto (Urine sed) [#/Area] 0-2 graded/HPF Normal 0-2graded/HP F [facility] UA Auto SS Glucose Ql (U) Negative Normal Negativemg/d L [facility] UA Auto SS Hemoglobin Auto test strip (U) [Mass/Vol] Trace mg/dL Invalid Interpretation Code Negativemg/d L [facility] UA Auto SS Ketones Auto test strip Ql (U) Negative Normal Negativemg/d L [facility] UA Auto SS Leukocyte esterase Auto test strip Ql (U) 250 Oracio/uL Oracio/uL Invalid Interpretation Code NegativeLeu/ uL [facility] UA Auto SS Mucus Auto Ql (U) Trace graded/LPF Normal Negati vegrad ed/LPF [facility] UA Auto SS Nitrite Auto test strip Ql (U) Negative Normal Negativemg/d L [facility] UA Auto SS pH (U) 6.0 *NA* (06/03/23 9:07 PM) Invalid Interpretation Code 5.0 - 9.0 [facility] UA Auto SS Protein Ql (U) Negative Normal Negativemg/d L [facility] UA Auto SS RBC Ql (U) 0-3 graded/HPF Normal 0-3graded/HP F [facility] UA Auto SS Specific gravity (U) [Rel density] 1.005 *NA* (06/03/23 9:07 PM) Invalid Interpretation Code 1.005 - 1.030 [facility] UA Auto SS Urobilinogen (U) [Mass/Vol] Negative Normal Negativemg/d L [facility] UA Auto SS WBC Auto (Urine sed) [#/Area] 16-25 graded/HPF Invalid Interpretation Code 0-5graded/HP F [facility] UA Auto SS URINALYSISOrdered By: Elliott carrero on 06-03-2023 UA Spec Desc Clean Catch (06/03/23 9:07 PM) Normal [facility] UA Auto SS eGFRon 06-03-2023 eGFR 123 mL/min/1.73 m2 Normal >=59 [facility] Comment on above: Order Comment: Order added by Discern Expert. Performed By: #### 2 1497485, 8456419, 8759649, 2448047, 4610021, 48638215 ####[facility] [address] [place] [id number] ED Note-Physicianon 04-26-19 ED Note-Physician [id number] F Normal [facility] Alanine aminotransferase [En zymatic activity/volume] in Serum or PlasmaOrdered By: Diane Paez on 04-25-2023 ALT [Catalytic activity/Vol] 221 U/L High 7-52 [facility] Comment on above: Performed By: #### L IPASE, BMP, HEPATIC, HCGQUAL, CBC #### [facility] [address] [place] [address] [place] Albumin [Mass/volume] in Ser um or Plasma by Bromocresol green (BCG) dye binding methoOrdered By: Diane Paez on 04-25-2023 Albumin BCG dye [Mass/Vol] 4.5 g/dL 3.5-5.7 [facility] Alkaline phosphatase [Enzyma tic activity/volume] in Serum or PlasmaOrdered By: Diane Paez on 04-25-2023 ALP [Catalytic activity/Vol] 94 U/L Normal 34-104 [facility] Comment on above: Performed By: #### L IPASE, BMP, HEPATIC, HCGQUAL, CBC #### [facility] [address] [place] [address] [place] Aspartate aminotransferase [ Enzymatic activity/volume] in Serum or PlasmaOrdered By: Diane Paez on 04-25-2023 AST [Catalytic activity/Vol] 281 U/L High 13-39 [facility] Comment on above: Performed By: #### L IPASE, BMP, HEPATIC, HCGQUAL, CBC #### [facility] [address] [place] [address] [place] Automated basophil %Ordered By: Diane Paez on 04-25-2023 Basophils/100 WBC (Bld) 1.0 % Normal . [facility] Comment on above: Performed By: #### L IPASE, BMP, HEPATIC, HCGQUAL, CBC #### [address] Automated basophil countOrde red By: Diane Paez on 04-25-2023 Basophils (Bld) [#/Vol] 0.0 10*3/uL Normal 0.0-0.2 [facility] Comment on above: Result Comment: PERF ORMED BY: [place] [address] PATHOLOGIST DIRECTOR OF GLOBAL TALENT LEE CARDOSO M.D. Performed By: #### L IPASE, BMP, HEPATIC, HCGQUAL, CBC #### [address] Automated blood monocyte cou ntOrdered By: Diane Paez on 04-25-2023 Monocytes (Bld) [#/Vol] 0.2 10*3/uL Normal 0.0-0.8 [facility] Comment on above: Performed By: #### L IPASE, BMP, HEPATIC, HCGQUAL, CBC #### [address] Automated eosinophil %Ordere d By: Diane Paez on 04-25-2023 Eosinophils/100 WBC (Bld) 1.1 % Normal . [facility] Comment on above: Performed By: #### L IPASE, BMP, HEPATIC, HCGQUAL, CBC #### [address] Automated eosinophil countOr dered By: Diane Paez on 04-25-2023 Eosinophils (Bld) [#/Vol] 0.1 10*3/uL Normal 0.0-0.45 [facility] Comment on above: Performed By: #### L IPASE, BMP, HEPATIC, HCGQUAL, CBC #### [address] Automated erythrocytes count in urine sediment (number/area)Ordered By: Diane Paez on 04-25-2023 RBC Auto (Urine sed) [#/Area] 0-1 [HPF] 0-4 [facility] Automated leukocytes count i n urine sediment (number/area)Ordered By: Diane Paez on 04-25-2023 WBC Auto (Urine sed) [#/Area] 1-2 [HPF] 0-4 [facility] Automated monocyte %Ordered By: Diane Paez on 04-25-2023 Monocytes/100 WBC (Bld) 4.5 % Normal . [facility] Comment on above: Performed By: #### L IPASE, BMP, HEPATIC, HCGQUAL, CBC #### [facility] [address] Automated neutrophil %Ordere d By: Diane Paez on 04-25-2023 Neutrophils/100 WBC (Bld) 52.5 % Normal . [facility] Comment on above: Performed By: #### L IPASE, BMP, HEPATIC, HCGQUAL, CBC #### [facility] [address] Automated urine color determ inationOrdered By: Diane Paez on 04-25-2023 Color (U) Yellow Normal Yellow [facility] Comment on above: Order Comment: Name Collection Type:: Clean-Voided Midstream Performed By: #### E ODALIS, MG, CMP, CBC #### [facility] [address] Basic Metabolic Panelon 04-11 Creatinine Clr Calc Pharmacy 116.68 Normal [facility] Comment on above: Performed By: #### L IPASE, BMP, HEPATIC, HCGQUAL, CBC #### [facility] [address] GFR/1.73 sq M.predicted MDRD (S/P/Bld) [Vol rate/Area] mL/min/{1.73_m2} Normal [facility] Comment on above: Performed By: #### L IPASE, BMP, HEPATIC, HCGQUAL, CBC #### [address] Bilirubin Test strip Ql (U)O rdered By: Diane Paez on 04-25-2023 Bilirubin Ql (U) Negative Negative [facility] Bilirubin.direct [Mass/volum e] in Serum or PlasmaOrdered By: Diane Paez on 04-25-2023 Bilirubin.direct [Mass/Vol] 0.10 mg/dL 0.03-0.18 [facility] Bilirubin.total [Mass/volume ] in Serum or PlasmaOrdered By: Diane Paez on 04-25-2023 Bilirubin [Mass/Vol] 0.5 mg/dL Normal 0.3-1.0 [facility] Comment on above: Performed By: #### L IPASE, BMP, HEPATIC, HCGQUAL, CBC #### [facility] [address] [place] [address] [place] Calcium [Mass/volume] in Ser um or PlasmaOrdered By: Diane Paez on 04-25-2023 Calcium [Mass/Vol] 8.9 mg/dL Normal 8.6-10.3 [facility] Comment on above: Performed By: #### L IPASE, BMP, HEPATIC, HCGQUAL, CBC #### [facility] [address] [place] [address] [place] Carbon dioxide, total [Moles /volume] in Serum or PlasmaOrdered By: Diane Paez on 04-25-2023 CO2 [Moles/Vol] 27.0 mmol/L Normal 21.0-31.0 [facility] Comment on above: Performed By: #### L IPASE, BMP, HEPATIC, HCGQUAL, CBC #### [facility] [address] [place] [address] [place] Chloride [Moles/volume] in S marbella or PlasmaOrdered By: Diane Paez on 04-25-2023 Chloride [Moles/Vol] 100 mmol/L Normal 98-107 [facility] Comment on above: Performed By: #### L IPASE, BMP, HEPATIC, HCGQUAL, CBC #### [facility] [address] [place] [address] [place] Choriogonadotropin.beta subu nit [Units/volume] in Serum or PlasmaOrdered By: Diane Paez on 04-25-2023 HCG.beta subunit Qn Negative [facility] Complete Blood Count Auto Di ffon 04-25-2023 Mean Corpuscular HGB Conc 35.0 g/dL Normal 32.0-35.0 [facility] Comment on above: Performed By: #### L IPASE, BMP, HEPATIC, HCGQUAL, CBC #### [facility] [address] [place] [address] [place] Monocytes/100 WBC (Bld) 17.84 % Normal 0.00-20.00 [facility] Comment on above: Performed By: #### L IPASE, BMP, HEPATIC, HCGQUAL, CBC #### [facility] [address] NRBC% 0.2 /100{WBC} Normal 0-0.5 [facility] Comment on above: Performed By: #### L IPASE, BMP, HEPATIC, HCGQUAL, CBC #### [address] Creatinine [Mass/volume] in Serum or PlasmaOrdered By: Diane Paez on 04-25-2023 Creatinine [Mass/Vol] 0.65 mg/dL Normal 0.60-1.20 [facility] Comment on above: Performed By: #### L IPASE, BMP, HEPATIC, HCGQUAL, CBC #### [address] Dipstick and Microscopicon 0 04-25-2023 Appearance (U) Clear Normal Clear [facility] Comment on above: Order Comment: Name Collection Type:: Clean-Voided Midstream Performed By: #### E ODALIS, MG, CMP, CBC #### [address] Bacteria,Urine None Seen Normal None Seen [facility] Comment on above: Order Comment: Name Collection Type:: Clean-Voided Midstream Performed By: #### E ODALIS, MG, CMP, CBC #### [address] Bilirubin,Urine Negative Normal Negative [facility] Comment on above: Order Comment: Name Collection Type:: Clean-Voided Midstream Performed By: #### E ODALIS, MG, CMP, CBC #### [address] Glucose Ql (U) Normal Normal Normal [facility] [facility] Comment on above: Order Comment: Name Collection Type:: Clean-Voided Midstream Performed By: #### E ODALIS, MG, CMP, CBC #### [address] Hyaline Casts,Urine None Seen Normal 0-8 [facility] Comment on above: Order Comment: Name Collection Type:: Clean-Voided Midstream Result Comment: PERF ORMED BY: [place] [address] PATHOLOGIST DIRECTOR OF GLOBAL TALENT LEE CARDOSO M.D. Performed By: #### E ODALIS, MG, CMP, CBC #### [address] Ketones Ql (U) Negative Normal Negative [facility] Comment on above: Order Comment: Name Collection Type:: Clean-Voided Midstream Performed By: #### E ODALIS, MG, CMP, CBC #### [address] Leukocyte esterase Test strip Ql (U) Negative Normal Negative [facility] Comment on above: Order Comment: Name Collection Type:: Clean-Voided Midstream Performed By: #### E ODALIS, MG, CMP, CBC #### [address] Nitrite,Urine Negative Normal Negative [facility] Comment on above: Order Comment: Name Collection Type:: Clean-Voided Midstream Performed By: #### E ODALIS, MG, CMP, CBC #### [place] [address] [place] Occult Blood,Urine Negative Normal Negative [facility] Comment on above: Order Comment: Name Collection Type:: Clean-Voided Midstream Result Comment: PERF ORMED BY: [place] [address] PATHOLOGIST DIRECTOR OF GLOBAL TALENT LEE CARDOSO M.D. Performed By: #### E ODALIS, MG, CMP, CBC #### [place] [address] [place] Protein,Urine Trace High Negative [facility] Comment on above: Order Comment: Name Collection Type:: Clean-Voided Midstream Performed By: #### E ODALIS, MG, CMP, CBC #### [address] RBC LM.HPF (Urine sed) [#/Area] 0 /[HPF] Normal 0-4 [facility] Comment on above: Order Comment: Name Collection Type:: Clean-Voided Midstream Performed By: #### E ODALIS, MG, CMP, CBC #### [address] Specificy [place],Urine 1.006 Normal 1.001-1.030 [facility] Comment on above: Order Comment: Name Collection Type:: Clean-Voided Midstream Performed By: #### E ODALIS, MG, CMP, CBC #### [address] Squamous Epithelial Cell,Urine 0-1 Normal 0-2 [facility] Comment on above: Order Comment: Name Collection Type:: Clean-Voided Midstream Performed By: #### E ODALIS, MG, CMP, CBC #### [address] Urobilinogen,Urine Normal Normal Normal [facility] Comment on above: Order Comment: Name Collection Type:: Clean-Voided Midstream Performed By: #### E ODALIS, MG, CMP, CBC #### [address] WBC,Urine 1-2 Normal 0-4 [facility] Comment on above: Order Comment: Name Collection Type:: Clean-Voided Midstream Performed By: #### E ODALIS, MG, CMP, CBC #### [address] Erythrocyte distribution wid th [Ratio] by Automated countOrdered By: Diane Paez on 04-25-2023 Erythrocyte distribution width (RBC) [Ratio] 13.3 % Normal 11.9-15.3 [facility] Comment on above: Performed By: #### L IPASE, BMP, HEPATIC, HCGQUAL, CBC #### [facility] [address] Erythrocytes [#/volume] in B lood by Automated countOrdered By: Diane Paez on 04-25-2023 RBC (Bld) [#/Vol] 4.22 10*6/uL Normal 3.60-5.00 [facility] Comment on above: Performed By: #### L IPASE, BMP, HEPATIC, HCGQUAL, CBC #### [facility] [address] Glucose [Mass/volume] in Ser um or PlasmaOrdered By: Diane Paez on 04-25-2023 Glucose [Mass/Vol] 85 mg/dL Normal 70-100 [facility] Comment on above: ADA recommended refe rence rangeRandom Glucose Reference Range is dependent on time and content of last meal. Glucose of more than 200 mg/dL in a nonstressed, ambulatory subject supports the diagnosis of Diabetes Mellitus. Result Comment: [place] om Glucose Reference Range is dependent on time and content of last meal. Glucose of more than 200 mg/dL in a nonstressed, ambulatory subject supports the diagnosis of Diabetes Mellitus. ADA recommended reference range Performed By: #### L IPASE, BMP, HEPATIC, HCGQUAL, CBC #### [facility] [address] HCG,Qualitative Serumon 04-11 HCG,Qualitative Serum Negative Normal [facility] Comment on above: Result Comment: PERF ORMED BY: [place] [address] PATHOLOGIST DIRECTOR OF GLOBAL TALENT LEE CARDOSO M.D. Performed By: #### E ODALIS, MG, CMP, CBC #### [facility] [address] [place] [address] Hematocrit [Volume Fraction] of Blood by Automated countOrdered By: Diane Paez on 04-25-2023 Hematocrit (Bld) [Volume fraction] 40.8 % Normal 34.0-46.4 [facility] Comment on above: Performed By: #### L IPASE, BMP, HEPATIC, HCGQUAL, CBC #### [facility] [address] Hemoglobin [Mass/volume] in BloodOrdered By: Diane Paez on 04-25-2023 Hemoglobin (Bld) [Mass/Vol] 14.3 g/dL Normal 11.8-15.4 [facility] Comment on above: Performed By: #### L IPASE, BMP, HEPATIC, HCGQUAL, CBC #### [facility] [address] Hepatic Panelon 04-25-2023 Albumin [Mass/Vol] 4.5 g/dL Normal 3.5-5.7 [facility] Comment on above: Performed By: #### L IPASE, BMP, HEPATIC, HCGQUAL, CBC #### [facility] [address] Bilirubin,Indirect 0.4 mg/dL Normal [facility] Comment on above: Performed By: #### L IPASE, BMP, HEPATIC, HCGQUAL, CBC #### [facility] [address] Bilirubin.indirect [Mass/Vol] 0.10 mg/dL Normal 0.03-0.18 [facility] Comment on above: Performed By: #### L IPASE, BMP, HEPATIC, HCGQUAL, CBC #### [address] Ketones Auto test strip (U) [Mass/Vol]Ordered By: Diane Paez on 04-25-2023 Ketones (U) [Mass/Vol] Negative Negative [facility] Laboratory - UrinalysisOrder ed By: Diane Paez on 04-25-2023 Hyaline casts LM Ql (Urine sed) None seen [LPF] 0-8 [facility] Leukocytes [#/volume] correc jose for nucleated erythrocytes in Blood by Automated counOrdered By: Diane Paez on 04-25-2023 WBC corrected for nucl RBC Auto (Bld) [#/Vol] 4.7 10*3/uL 3.8-11.6 [facility] Leukocytes [#/volume] in Blo od by Automated countOrdered By: Diaen Paez on 04-25-2023 WBC (Bld) [#/Vol] 4.7 10*3/uL Normal 3.8-11.6 [facility] Comment on above: Performed By: #### L IPASE, BMP, HEPATIC, HCGQUAL, CBC #### [facility] [address] [place] [address] Lipase [Enzymatic activity/v olume] in Serum or PlasmaOrdered By: Diane Paez on 04-25-2023 Lipase [Catalytic activity/Vol] 74.0 U/L Normal 11.0-82.0 [facility] Comment on above: Performed By: #### E ODALIS, MG, CMP, CBC #### [place] [address] [place] Lymphocytes [#/volume] in Bl ood by Automated countOrdered By: Diane Paez on 04-25-2023 Lymphocytes (Bld) [#/Vol] 1.9 10*3/uL Normal 1.00-4.8 [facility] Comment on above: Performed By: #### L IPASE, BMP, HEPATIC, HCGQUAL, CBC #### [place] [address] [place] Lymphocytes/100 leukocytes i n Blood by Automated countOrdered By: Diane Paez on 04-25-2023 Lymphocytes/100 WBC (Bld) 40.9 % Normal . [facility] Comment on above: Performed By: #### L IPASE, BMP, HEPATIC, HCGQUAL, CBC #### [facility] [address] [place] [address] [place] MCH [Entitic mass] by Automa jose countOrdered By: Diane Paez on 04-25-2023 MCH (RBC) [Entitic mass] 33.9 pg Normal 24.7-34.3 [facility] Comment on above: Performed By: #### L IPASE, BMP, HEPATIC, HCGQUAL, CBC #### [place] [address] [place] MCHC Auto (RBC) [Mass/Vol]Or dered By: Diane Paez on 04-25-2023 MCHC (RBC) [Mass/Vol] 35.0 g/dL 32.0-35.0 [facility] MCV [Entitic volume] by Auto mated countOrdered By: Diane Paez on 04-25-2023 MCV (RBC) [Entitic vol] 96.8 fL Normal 80-100 [facility] Comment on above: Performed By: #### L IPASE, BMP, HEPATIC, HCGQUAL, CBC #### [facility] [address] [place] [address] [place] Monocyte distribution width [Entitic volume] in Blood by AutomatedOrdered By: Diane Paez on 04-25-2023 Monocyte distribution width Auto (Bld) [Entitic vol] 17.84 % 0.00-20.00 [facility] Neutrophils [#/volume] in Bl ood by Automated countOrdered By: Diane Paez on 04-25-2023 Neutrophils (Bld) [#/Vol] 2.5 10*3/uL Normal 1.8-7.7 [facility] Comment on above: Performed By: #### L IPASE, BMP, HEPATIC, HCGQUAL, CBC #### [facility] [address] Nitrite Test strip Ql (U)Ord ered By: Diane Paez on 04-25-2023 Nitrite Ql (U) Negative Negative [facility] No Panel InformationOrdered By: Diane Paez on 04-25-2023 Estimated GFR (CKD-EPI) > 60.0 mL/Min [facility] Pharmacy Creatinine Clearance (Chem 116.68 [facility] Nucleated erythrocytes [Pres ence] in Blood by Automated countOrdered By: Diane Paez on 04-25-2023 Nucleated RBC Auto Ql (Bld) 0.2 /100{WBC} 0-0.5 [facility] Platelet mean volume [Entiti c volume] in Blood by Automated countOrdered By: Diane Paez on 04-25-2023 Platelet mean volume (Bld) [Entitic vol] 8.7 fL Normal 6.3-10.7 [facility] Comment on above: Performed By: #### L IPASE, BMP, HEPATIC, HCGQUAL, CBC #### [address] Platelets [#/volume] in Bloo d by Automated countOrdered By: Diane Paez on 04-25-2023 Platelets (Bld) [#/Vol] 146 10*3/uL Low 150-450 [facility] Comment on above: Performed By: #### L IPASE, BMP, HEPATIC, HCGQUAL, CBC #### [address] Potassium [Moles/volume] in Serum or PlasmaOrdered By: Diane Paez on 04-25-2023 Potassium [Moles/Vol] 4.0 mmol/L Normal 3.5-5.1 [facility] Comment on above: Performed By: #### L IPASE, BMP, HEPATIC, HCGQUAL, CBC #### [address] Protein Auto test strip (U) [Mass/Vol]Ordered By: Diane Paez on 04-25-2023 Protein (U) [Mass/Vol] Trace mg/dL Negative [facility] Protein [Mass/volume] in Ser um or PlasmaOrdered By: Diane Paez on 04-25-2023 Protein [Mass/Vol] 8.2 g/dL Normal 6.4-8.9 [facility] Comment on above: Performed By: #### L IPASE, BMP, HEPATIC, HCGQUAL, CBC #### [address] Serum globulin measurement b y calculation (mass/volume)Ordered By: Diane Paez on 04-25-2023 Globulin (S) [Mass/Vol] 3.7 g/dL Normal [facility] Comment on above: Performed By: #### L IPASE, BMP, HEPATIC, HCGQUAL, CBC #### [address] Serum or plasma albumin/glob ulin mass ratioOrdered By: Diane Paez on 04-25-2023 Albumin/Globulin [Mass ratio] 1.2 {ratio} Normal [facility] Comment on above: Performed By: #### L IPASE, BMP, HEPATIC, HCGQUAL, CBC #### [facility] [address] [place] [address] Serum or plasma anion gap de terminationOrdered By: Diane Paez on 04-25-2023 Anion gap [Moles/Vol] 16.0 mmol/L High 6.0-15.0 [facility] Comment on above: Performed By: #### L IPASE, BMP, HEPATIC, HCGQUAL, CBC #### [facility] [address] [place] [address] Serum or plasma non-glucuron idated bilirubin measurement (mass/volume)Ordered By: Diane Paez on 04-25-2023 Bilirubin.indirect [Mass/Vol] 0.4 mg/dL [facility] Sodium [Moles/volume] in Ser um or PlasmaOrdered By: Diane Paez on 04-25-2023 Sodium [Moles/Vol] 139 mmol/L Normal 136-145 [facility] Comment on above: Performed By: #### L IPASE, BMP, HEPATIC, HCGQUAL, CBC #### [facility] [address] [place] [address] Specific gravity Auto test s trip (U) [Rel density]Ordered By: Diane Paez on 04-25-2023 Specific gravity (U) [Rel density] 1.006 1.001-1.030 [facility] Squamous epithelial cells de tection in urine sediment by light microscopyOrdered By: Diane Paez on 04-25-2023 Epithelial cells.squamous LM Ql (Urine sed) 0-1 [HPF] 0-2 [facility] Urea nitrogen [Mass/volume] in Serum or PlasmaOrdered By: Diane Paez on 04-25-2023 Urea nitrogen [Mass/Vol] 5 mg/dL Low 7-25 [facility] Comment on above: Performed By: #### L IPASE, BMP, HEPATIC, HCGQUAL, CBC #### [facility] [address] [place] [address] Urine bacteria detection by automated methodOrdered By: Diane Paez on 04-25-2023 Bacteria Auto Ql (U) None seen None Seen [facility] Urine clarity by refractomet ry automatedOrdered By: Diane Paez on 04-25-2023 Clarity Refractometry automated (U) Clear Clear [facility] Urine glucose measurement by automated test strip (mass/volume)Ordered By: Diane Paez on 04-25-2023 Glucose Auto test strip (U) [Mass/Vol] Normal mg/dL Normal [facility] Urine hemoglobin detection b y automated test stripOrdered By: Diane Paez on 04-25-2023 Hemoglobin Auto test strip Ql (U) Negative Negative [facility] Urine leukocyte esterase det ection by automated test stripOrdered By: Diane Paez on 04-25-2023 Leukocyte esterase Auto test strip Ql (U) Negative Negative [facility] Urine pH measurement by auto mated test stripOrdered By: Diane Paez on 04-25-2023 pH (U) 6.5 [pH] Normal 5.0-9.0 [facility] Comment on above: Order Comment: Name Collection Type:: Clean-Voided Midstream Performed By: #### E ODALIS, MG, CMP, CBC #### [address] Urobilinogen Auto test strip (U) [Mass/Vol]Ordered By: Diane Paez on 04-25-2023 Urobilinogen (U) [Mass/Vol] Normal mg/dL Normal [facility] BMPon 04-20-2023 Anion gap [Moles/Vol] 14 mmol/L Normal 6-16 [facility] Comment on above: Performed By: #### 2 099002, 8666380, 96846624, 4159146, 4889280, 3674405 ####[facility] [address] [place] [address] Calcium [Mass/Vol] 8.7 mg/dL Low 8.9-11.1 [facility] Comment on above: Performed By: #### 2 939201, 4266064, 39237903, 4736784, 3652225, 4013362 ####[facility] [address] [place] [address] Chloride [Moles/Vol] 107 mmol/L Normal 101-111 [facility] Comment on above: Performed By: #### 2 273308, 5841539, 93329344, 2014215, 3074243, 4223181 ####[facility] [address] [place] [address] CO2 [Moles/Vol] 26 mmol/L Normal 21-31 [facility] Comment on above: Performed By: #### 2 001044, 6562972, 34110620, 2094093, 3607432, 1351963 ####[facility] [address] [place] [address] Creatinine [Mass/Vol] 0.5 mg/dL Normal 0.5-1.3 [facility] Comment on above: Performed By: #### 2 354749, 3373194, 71302847, 4943233, 5071527, 1836589 ####[facility] [address] [place] [address] Glucose [Mass/Vol] 83 mg/dL Normal 55-199 [facility] Comment on above: Performed By: #### 2 709193, 0595960, 39641155, 7058343, 7989811, 2136971 ####[facility] [address] [place] [address] Potassium [Moles/Vol] 3.8 mmol/L Normal 3.5-5.3 [facility] Comment on above: Performed By: #### 2 329204, 3620738, 10083384, 4151312, 8376922, 4189490 ####[facility] [address] [place] [address] Sodium [Moles/Vol] 143 mmol/L Normal 135-145 [facility] Comment on above: Performed By: #### 2 518512, 2757359, 46370031, 4966861, 1554905, 3816992 ####[facility] [address] [place] [address] Urea nitrogen [Mass/Vol] 8 mg/dL Normal 5-21 [facility] Comment on above: Performed By: #### 2 287840, 1250570, 23234171, 8236461, 1373219, 4547256 ####[facility] [address] [place] [address] Urea nitrogen/Creatinine [Mass ratio] 16 No Units Normal 10-20 [facility] Comment on above: Performed By: #### 2 968010, 7605234, 78214926, 0548524, 8550199, 5612093 ####[facility] [address] [place] [address] CBC w/ Auto Diffon 4 Basophils/100 WBC (Bld) 1.1 % Normal 0.0-2.0 [facility] Comment on above: Performed By: #### 2 735050, 9797495, 66677108, 9143846, 5456789, 7184278 ####[address] [address] Basophils/Leukocytes Auto (Bld) [Pure # fraction] 0.1 E9/L Normal 0.0-0.2 [facility] Comment on above: Performed By: #### 2 268009, 8400566, 69649795, 2446495, 9761971, 1980348 ####[address] [address] Eosinophils (Bld) [#/Vol] 0.1 E9/L Normal 0.0-0.5 [facility] Comment on above: Performed By: #### 2 425391, 1341737, 45233951, 7862444, 7200696, 2990068 ####[address] [place] [address] Eosinophils/100 WBC (Bld) 1.0 % Normal 0.0-8.0 [facility] Comment on above: Performed By: #### 2 522374, 0266886, 67975323, 8826654, 7204899, 9125007 ####[address] [address] Erythrocyte distribution width (RBC) [Ratio] 13.1 % Normal 10.9-14.2 [facility] Comment on above: Performed By: #### 2 254587, 3964089, 18368283, 9644483, 5195926, 2470674 ####[address] [address] Hematocrit (Bld) [Volume fraction] 41.5 % Normal 34.0-46.0 [facility] Comment on above: Performed By: #### 2 280038, 5077563, 80200725, 1571440, 4534186, 1089030 ####[address] [address] Hemoglobin (Bld) [Mass/Vol] 14.3 g/dL Normal 12.0-16.0 [facility] Comment on above: Performed By: #### 2 455715, 0931216, 22530051, 6839794, 7087614, 9788407 ####[address] [address] Lymphocytes (Bld) [#/Vol] 2.4 E9/L Normal 1.0-4.0 [facility] Comment on above: Performed By: #### 2 978842, 5053015, 89090299, 3608660, 5313349, 5149840 ####[address] [address] Lymphocytes/100 WBC (Bld) 38.1 % Normal 14.0-50.0 [facility] Comment on above: Performed By: #### 2 558855, 3763365, 78975023, 3209816, 9945180, 1524828 ####[address] [address] MCH (RBC) [Entitic mass] 33.5 pg Normal 27.0-34.0 [facility] Comment on above: Performed By: #### 2 886080, 8349925, 40173968, 9713114, 5132904, 2785775 ####[address] [address] MCHC (RBC) [Mass/Vol] 34.5 g/dL Normal 31.4-36.0 [facility] Comment on above: Performed By: #### 2 038364, 3655123, 22403396, 5611519, 7181609, 5466690 ####[address] [address] MCV (RBC) [Entitic vol] 97.0 fL Normal 80.0-100.0 [facility] Comment on above: Performed By: #### 2 090840, 9346559, 31325293, 0342314, 8178405, 4440147 ####[address] [address] Monocytes (Bld) [#/Vol] 0.3 E9/L Normal 0.2-1.0 [facility] Comment on above: Performed By: #### 2 066741, 5356360, 49625941, 6061124, 7766960, 2430380 ####[address] [address] Neutrophils (Bld) [#/Vol] 3.4 E9/L Normal 2.0-7.5 [facility] Comment on above: Performed By: #### 2 031948, 9667893, 04040689, 8132012, 2778757, 2863737 ####[address] [address] Neutrophils/100 WBC (Bld) 54.6 % Normal 36.0-75.0 [facility] Comment on above: Performed By: #### 2 759439, 7576590, 00444291, 6816196, 5078105, 2999616 ####[address] [address] Platelet 192.0 E9/L Normal 150.0-500.0 [facility] Comment on above: Performed By: #### 2 313527, 3199514, 24636718, 8066459, 6694628, 2291354 ####[facility] [address] [place] [address] Platelet mean volume (Bld) [Entitic vol] 7.8 fL Normal 6.4-10.8 [facility] Comment on above: Performed By: #### 2 572971, 1685019, 76587808, 3010310, 8001310, 5911165 ####[facility] [address] [place] [address] RBC (Bld) [#/Vol] 4.3 E12/L Normal 4.3-5.9 [facility] Comment on above: Performed By: #### 2 151567, 2014904, 00503790, 6341768, 0901810, 6681312 ####[address] [place] [address] WBC corrected for nucl RBC Auto (Bld) [#/Vol] 6.2 E9/L Normal 4.0-11.0 [facility] Comment on above: Performed By: #### 2 800910, 9983062, 01821230, 0694096, 1288156, 5470631 ####[address] [place] [address] Consent for Treatmenton Consent for Treatment [id number] FF Normal [facility] Discharge Instructionson Discharge Instructions [id number] FF Normal [facility] ED Clinical Summaryon 2023 ED Clinical Summary Normal [facility]by [facility] ED Note-Nursingon 04-20-2023 ED Note-Nursing Normal [facility] ED Note-Physicianon 04-20-19 ED Note-Physician Normal [facility] Comment on above: Result Comment: Elec tronically Signed By: Kurt HARO, Elliott J.\.br\Date and Time Signed: 04/19/23 23:53 EST\.br\Electronically Co-Signed By: Kerry Linton DO\.br\Date and Time Co-Signed: 04/20/23 05:01 EST ED Patient Education Noteon 04-20-2023 ED Patient Education Note Normal [facility] ED Patient Summaryon 024 ED Patient Summary Normal [facility] Ethanolon 04-20-2023 Ethanol Lvl 437 mg/dL Abnormal <=11 [facility] Comment on above: Result Comment: Crit ical Result Verified by Repeat AnalysisCritical Result S_ETOH:[id number] Called to and read back by: DR. LINTON at: 04/19/2023 23:22:41 by:[id number] Performed By: #### 2 407575 ####[facility] [address] [place] [address] Hep Func Panelon 04-20-2023 Albumin [Mass/Vol] 4.3 g/dL Normal 3.3-5.0 [facility] Comment on above: Performed By: #### 2 137262, 1285197, 69987923, 9769003, 6278435, 3536479 ####[facility] [address] [place] [address] Albumin/Globulin (S) [Mass conc ratio] 1.3 Normal 1.1-2.2 [facility] Comment on above: Performed By: #### 2 947138, 9138677, 15851401, 3546445, 5689904, 3914141 ####[facility] [address] [place] [address] ALP [Catalytic activity/Vol] 96 Int._Unit/L Normal 21-98 [facility] Comment on above: Performed By: #### 2 805308, 4270417, 74071323, 3025732, 5782536, 1681237 ####[facility] [address] [place] [address] ALT No additional P-5'-P [Catalytic activity/Vol] 273 Int._Unit/L High 6-46 [facility] Comment on above: Performed By: #### 2 309864, 8338281, 68301592, 4186230, 6568770, 6689128 ####[facility] [address] [place] [address] AST [Catalytic activity/Vol] 356 Int._Unit/L High 5-43 [facility] Comment on above: Performed By: #### 2 751156, 3645847, 96775091, 0241015, 8555428, 4157607 ####[facility] [address] [place] [address] Bilirubin [Mass/Vol] 0.3 mg/dL Normal 0.0-1.1 [facility] Comment on above: Performed By: #### 2 276368, 6162906, 07027186, 0328551, 1560595, 2304565 ####[place] [id number] Bilirubin.direct [Mass/Vol] 0.1 mg/dL Normal 0.0-0.4 [facility] Comment on above: Performed By: #### 2 769841, 5051702, [id number], 4439288, 1087442, 7706670 ####[place] [id number] Bilirubin.indirect [Mass or moles/Vol] 0.2 mg/dL Normal 0.1-0.9 [facility] Comment on above: Performed By: #### 2 384398, 0866917, [id number], 9299479, 5744799, 0496146 ####[facility] [address] [place] [address] Globulin (S) [Mass/Vol] 3.3 g/dL Normal 1.4-4.0 [facility] Comment on above: Performed By: #### 2 048742, 1070606, 80278528, 9353027, 3304363, 8408559 ####[facility] [address] [place] [address] Protein [Mass/Vol] 7.6 g/dL Normal 6.0-7.8 [facility] Comment on above: Performed By: #### 2 050821, 8911668, 78462958, 8487027, 8369680, 1734209 ####[facility] [address] [place] [address] Lipase Levelon 04-20-2023 Lipase [Catalytic activity/Vol] 63 U/L High 13-58 [facility] Comment on above: Performed By: #### 2 615310, 8547587, 92194326, 9885759, 1578524, 1672384 ####[facility] [address] [place] [address] Magnesiumon 04-20-2023 Magnesium [Mass/Vol] 2.0 mg/dL Normal 1.3-2.4 [facility] Comment on above: Performed By: #### 2 632545, 7610180, 42751028, 5459102, 1453489, 0991073 ####[address] [address] Progress Note-Nurseon 2023 Progress Note-Nurse Angelafrchrissy PO hold for n ow. Pt. eyes closed. No N/V . Normal [facility] U BetaHcg Qualon 04-20-2023 HCG.beta subunit (U) [Moles/Vol] Negative Normal [facility] Comment on above: Performed By: #### 2 [id number], [id number] ####[facility] [address] [place] [address] U Drug Screenon 04-20-2023 Amphetamines Screen method >1000 ng/mL Ql (U) Negative Normal NEGATIVE [facility] Comment on above: Performed By: #### 2 774636 ####[address] [address] Barbiturates Screen Ql (U) Negative Normal NEGATIVE [facility] Comment on above: Performed By: #### 2 488563 ####[address] [address] Benzodiazepines Ql (U) Negative Normal NEGATIVE [facility] Comment on above: Performed By: #### 2 106759 ####[facility] [address] [place] [address] Cannabinoids Screen Ql (U) Negative Normal NEGATIVE [facility] Comment on above: Performed By: #### 2 866451 ####[facility] [address] [place] [address] Cocaine Ql (U) Negative Normal NEGATIVE [facility] Comment on above: Performed By: #### 2 375107 ####[facility] [address] [place] [address] Opiates Screen Ql (U) Negative Normal NEGATIVE [facility] Comment on above: Performed By: #### 2 734985 ####[facility] [address] [place] [address] Phencyclidine Screen method >25 ng/mL Ql (U) Negative Normal NEGATIVE [facility] Comment on above: Performed By: #### 2 056505 ####[facility] [address] [place] [address] UA With Cult Reflexon 2023 Bilirubin Ql (U) Negative Normal Negative [facility] Comment on above: Performed By: #### 2 6379688, 93901280 ####[facility] [address] [place] [address] Clarity (U) CLEAR Normal Clear [facility] Comment on above: Performed By: #### 2 7762013, [id number] ####[facility] [address] [place] [address] Color (U) STRAW Invalid Interpretation Code [facility] Comment on above: Performed By: #### 2 9010517, [id number] ####[place] [address] [place] [address] Epithelial cells.squamous LM.HPF (Urine sed) [#/Area] 0-2 Normal 0-2 [facility] Comment on above: Performed By: #### 2 2305606, [id number] ####[facility] [address] [place] [address] Glucose Test strip (U) [Mass/Vol] Negative Normal Negative [facility] Comment on above: Performed By: #### 2 4831144, 49291019 ####[address] [address] Hemoglobin Ql (U) Negative Normal Negative [facility] Comment on above: Performed By: #### 2 3912494, 18429558 ####[address] [address] Ketones (U) [Mass/Vol] Negative Normal Negative [facility] Comment on above: Performed By: #### 2 3740514, 82499812 ####[address] [address] Ector.plasma/Lithiu m.RBC (Bld) [Mass ratio] 0-3 Normal 0-3 [facility] Comment on above: Performed By: #### 2 5962485, 95056184 ####[address] [address] Nitrite Ql (U) Negative Normal Negative [facility] Comment on above: Performed By: #### 2 6897913, 71042227 ####[address] [address] pH (U) 7.0 [pH] Invalid Interpretation Code 5.0-9.0 [facility] Comment on above: Performed By: #### 2 7797272, 43258742 ####[address] [address] Protein (U) [Mass/Vol] Negative Normal Negative [facility] Comment on above: Performed By: #### 2 3769671, 73960337 ####[address] [address] Specific gravity (U) [Rel density] <=1.005 Invalid Interpretation Code 1.005-1.030 [facility] Comment on above: Performed By: #### 2 7400967, 74372286 ####[place] [address] [place] [address] Type of Urine collection method Clean Catch Normal [facility] Comment on above: Performed By: #### 2 2317073, 72351102 ####[address] [address] Urobilinogen Qn (U) 0.2 {Surinder'U}/dL Normal 0.0-1.0 [facility] Comment on above: Performed By: #### 2 9140108, 41340191 ####[address] [address] WBC Auto Ql (U) Negative Normal Negative [facility] Comment on above: Performed By: #### 2 3358436, 48707319 ####[address] [address] WBC LM.HPF (Urine sed) [#/Area] 0-5 Normal 0-5 [facility] Comment on above: Performed By: #### 2 5389884, 46416825 ####[address] [address] eGFRon 04-20-2023 eGFR 128 mL/min/1.73 m2 Normal >=59 [facility] Comment on above: Order Comment: Order added by Discern Expert. Performed By: #### 2 230835, 4305343, 96320013, 8307815, 5128209, 9912526 ####[address] [address] CHEMISTRYOrdered By: SYSTEM SYSTEM on 04-19-2023 Albumin [Mass/Vol] 4.3 g/dL Normal 3.3 - 5.0 gm/dL [facility] Albumin/Globulin [Mass ratio] 1.3 {ratio} Normal 1.1 - 2.2 [facility] ALP [Catalytic activity/Vol] 96 [iU]/d Normal 21 - 98 Int._Unit/L [facility] ALT No additional P-5'-P [Catalytic activity/Vol] 273 [iU]/d High 6 - 46 Int._Unit/L [facility] Anion gap [Moles/Vol] 14 mmol/L Normal 6 - 16 mEq/L R [facility] AST [Catalytic activity/Vol] 356 [iU]/d High 5 - 43 Int._Unit/L [facility] Bilirubin [Mass/Vol] 0.3 mg/dL Normal 0.0 - 1 .1 mg/dL [facility] Bilirubin.direct [Mass/Vol] 0.1 mg/dL Normal 0.0 - 0.4 mg/dL [facility] Bilirubin.indirect [Mass or moles/Vol] 0.2 mg/dL Normal 0.1 - 0.9 mg/dL [facility] Calcium [Mass/Vol] 8.7 mg/dL Low 8.9 - 11. 1 mg/dL [facility] Chloride [Moles/Vol] 107 mmol/L Normal 101 - 1 11 mmol/L [facility] CO2 [Moles/Vol] 26 mmol/L Normal 21 - 31 mmol/L [facility] Creatinine [Mass/Vol] 0.5 mg/dL Normal 0.5 - 1.3 mg/dL [facility] eGFR 128 mL/min/1.73 m2 Normal >=59mL/mi n/1 .73 m2 [facility] Ethanol Lvl 437 mg/dL Invalid Interpretation Code <=11mg/dL [facility] Comment on above: Result Comment: Crit ical Result Verified by Repeat Analysis Critical Result [id number] Called to and read back by: DR. LINTON at: 04/19/2023 23:22:41 by:[id number] Globulin (S) [Mass/Vol] 3.3 g/dL Normal 1.4 - 4.0 gm/dL [facility] Glucose [Mass/Vol] 83 mg/dL Normal 55 - 199 mg/dL [facility] Lipase [Catalytic activity/Vol] 63 U/L High 13 - 58 unit/L [facility] Magnesium [Mass/Vol] 2.0 mg/dL Normal 1.3 - 2 .4 mg/dL [facility] Potassium [Moles/Vol] 3.8 mmol/L Normal 3.5 - 5.3 mmol/L [facility] Protein [Mass/Vol] 7.6 g/dL Normal 6.0 - 7.8 gm/dL [facility] Sodium [Moles/Vol] 143 mmol/L Normal 135 - 145 mmol/L [facility] Urea nitrogen [Mass/Vol] 8 mg/dL Normal 5 - 21 mg/dL [facility] Urea nitrogen/Creatinine [Mass ratio] 16 mg/mg Normal 10 - 20 [facility] Amphetamines Screen method >1000 ng/mL Ql (U) NEGATIVE (04/19/23 10:25 PM) Normal NEGATIVE [facility] Barbiturates Screen Ql (U) NEGATIVE (04/19/23 10:25 PM) Normal NEGATIVE [facility] Benzodiazepines Ql (U) NEGATIVE (04/19/23 10:25 PM) Normal NEGATIVE [facility] Cannabinoids Screen Ql (U) NEGATIVE (04/19/23 10:25 PM) Normal NEGATIVE [facility] Cocaine Ql (U) NEGATIVE (04/19/23 10:25 PM) Normal NEGATIVE [facility] Opiates Screen Ql (U) NEGATIVE (04/19/23 10:25 PM) Normal NEGATIVE [facility] Phencyclidine Screen method >25 ng/mL Ql (U) NEGATIVE (04/19/23 10:25 PM) Normal NEGATIVE [facility] HEMATOLOGYOrdered By: SYSTEM SYSTEM on 04-19-2023 Basophils/100 WBC (Bld) 1.1 % Normal 0.0 - 2.0 % [facility] Basophils/Leukocytes Auto (Bld) [Pure # fraction] 0.1 E9/L Normal 0.0 - 0.2 E9/L [facility] Eosinophils (Bld) [#/Vol] 0.1 E9/L Normal 0.0 - 0.5 E9/L [facility] Eosinophils/100 WBC (Bld) 1.0 % Normal 0.0 - 8.0 % [facility] Erythrocyte distribution width (RBC) [Ratio] 13.1 % Normal 10.9 - 14.2 % [facility] Hematocrit (Bld) [Volume fraction] 41.5 % Normal 34.0 - 46.0 % [facility] Hemoglobin (Bld) [Mass/Vol] 14.3 g/dL Normal 12.0 - 16.0 gm/dL [facility] Lymphocytes (Bld) [#/Vol] 2.4 E9/L Normal 1.0 - 4.0 E9/L [facility] Lymphocytes/100 WBC (Bld) 38.1 % Normal 14.0 - 50.0 % [facility] MCH (RBC) [Entitic mass] 33.5 pg Normal 27.0 - 34.0 pg [facility] MCHC (RBC) [Mass/Vol] 34.5 g/dL Normal 31.4 - 36.0 gm/dL [facility] MCV (RBC) [Entitic vol] 97.0 fL Normal 80.0 - 100.0 fL [facility] Monocytes (Bld) [#/Vol] 0.3 E9/L Normal 0.2 - 1.0 E9/L [facility] Monocytes/100 WBC (Bld) 5.2 % Normal 4.0 - 14.0 % [facility] Neutrophils (Bld) [#/Vol] 3.4 E9/L Normal 2.0 - 7.5 E9/L [facility] Neutrophils/100 WBC (Bld) 54.6 % Normal 36.0 - 75.0 % [facility] Platelet 192.0 E9/L Normal 150.0 - 500.0 E9/L [facility] Platelet mean volume (Bld) [Entitic vol] 7.8 fL Normal 6.4 - 10.8 fL [facility] RBC (Bld) [#/Vol] 4.3 E12/L Normal 4.3 - 5.9 E12/L [facility] WBC corrected for nucl RBC Auto (Bld) [#/Vol] 6.2 E9/L Normal 4.0 - 11.0 E9/L [facility] Pre-Arrival Noteon Pre-Arrival Note Normal [facility] SEROLOGYOrdered By: Domitila gaffney on 04-19-2023 HCG.beta subunit (U) [Moles/Vol] Negative Normal [facility] [place] Man Sero URINALYSISOrdered By: Domitila Granado on 04-19-2023 Bilirubin Ql (U) Negative (04/19/23 10:25 PM) Normal Negative [facility] [place] UA Auto SS Clarity (U) Clear (04/19/23 10:25 PM) Normal Clear [facility] [place] UA Auto SS Color (U) STRAW Invalid Interpretation Code [facility] [place] UA Auto SS Epithelial cells.squamous LM.HPF (Urine sed) [#/Area] 0-2 /HPF Normal 0-2/HPF [facility] [place] UA Aut o SS Glucose Test strip (U) [Mass/Vol] Negative (04/19/23 10:25 PM) Normal Negative [facility] UA Auto SS Hemoglobin Ql (U) Negative (04/19/23 10:25 PM) Normal Negative [facility] UA Auto SS Ketones (U) [Mass/Vol] Negative (04/19/23 10:25 PM) Normal Negative [facility] UA Auto SS Ector.plasma/Lithiu m.RBC (Bld) [Mass ratio] 0-3 /HPF Normal 0-3/HPF [facility] UA Auto SS Nitrite Ql (U) Negative (04/19/23 10:25 PM) Normal Negative [facility] UA Auto SS pH (U) 7.0 *NA* (04/19/23 10:25 PM) Invalid Interpretation Code 5.0 - 9.0 [facility] UA Auto SS Protein (U) [Mass/Vol] Negative (04/19/23 10:25 PM) Normal Negative [facility] UA Auto SS Specific gravity (U) [Rel density] <=1.005 *NA* (04/19/23 10:25 PM) Invalid Interpretation Code 1.005 - 1.030 [facility]A Auto SS UA Spec Desc Clean Catch (04/19/23 10:25 PM) Normal [facility] [place] UA Auto SS Urobilinogen Qn (U) 0.2673159 {Surinder'U}/dL Normal 0.0 - 1.0 EU/dL [facility] UA Auto SS WBC Auto Ql (U) Negative (04/19/23 10:25 PM) Normal Negative [facility] UA Auto SS WBC LM.HPF (Urine sed) [#/Area] 0-5 /HPF Normal 0-5/HPF [facility] UA Auto SS ED Note-Physicianon 04-09-19 ED Note-Physician [id number] 2031 [id number] F Normal [facility] Alanine aminotransferase [En zymatic activity/volume] in Serum or PlasmaOrdered By: Eric Dooley on 04-08-2023 ALT [Catalytic activity/Vol] 169 U/L High [facility] [place] Comment on above: Performed By: #### C MP, LIPASE, CBC #### [address] Albumin [Mass/volume] in Ser um or Plasma by Bromocresol green (BCG) dye binding methoOrdered By: Eric Dooley on 04-08-2023 Albumin BCG dye [Mass/Vol] 4.1 g/dL 3.5-5.7 [facility] [place] Alkaline phosphatase [Enzyma tic activity/volume] in Serum or PlasmaOrdered By: Eric Dooley on 04-08-2023 ALP [Catalytic activity/Vol] 66 U/L Normal 34-104 [facility] [place] Comment on above: Performed By: #### C MP, LIPASE, CBC #### [address] Amylase [Enzymatic activity/ volume] in Serum or PlasmaOrdered By: Eric Dooley on 04-08-2023 Amylase [Catalytic activity/Vol] 70 U/L Normal 29-103 [facility] [place] Comment on above: Performed By: #### C MP, LIPASE, CBC #### [address] Aspartate aminotransferase [ Enzymatic activity/volume] in Serum or PlasmaOrdered By: Erci Dooley on 04-08-2023 AST [Catalytic activity/Vol] 121 U/L High 13-39 [facility] [place] Comment on above: Performed By: #### C MP, LIPASE, CBC #### [address] Automated basophil %Ordered By: Eric Dooley on 04-08-2023 Basophils/100 WBC (Bld) 0.8 % Normal . [facility] [place] Comment on above: Performed By: #### C MP, LIPASE, CBC #### [address] Automated basophil countOrde red By: Eric Dooley on 04-08-2023 Basophils (Bld) [#/Vol] 0.0 10*3/uL Normal 0.0-0.2 [facility] [place] Comment on above: Result Comment: PERF ORMED BY: [place] [address] PATHOLOGIST DIRECTOR OF GLOBAL TALENT LEE CARDOSO M.D. Performed By: #### C MP, LIPASE, CBC #### [address] Automated blood monocyte cou ntOrdered By: Eric Dooley on 04-08-2023 Monocytes (Bld) [#/Vol] 0.3 10*3/uL Normal 0.0-0.8 [facility] [place] Comment on above: Performed By: #### C MP, LIPASE, CBC #### [facility] [address] Automated eosinophil %Ordere d By: Eric Dooley on 04-08-2023 Eosinophils/100 WBC (Bld) 1.0 % Normal . [facility] [place] Comment on above: Performed By: #### C MP, LIPASE, CBC #### [address] Automated eosinophil countOr dered By: Eric Dooley on 04-08-2023 Eosinophils (Bld) [#/Vol] 0.1 10*3/uL Normal 0.0-0.45 [facility] [place] Comment on above: Performed By: #### C MP, LIPASE, CBC #### [address] Automated erythrocytes count in urine sediment (number/area)Ordered By: Eric Dooley on 04-08-2023 RBC Auto (Urine sed) [#/Area] 0-1 [HPF] 0-4 [facility] [place] Automated leukocytes count i n urine sediment (number/area)Ordered By: Eric Dooley on 04-08-2023 WBC Auto (Urine sed) [#/Area] 5-9 [HPF] 0-4 [facility] [place] Automated monocyte %Ordered By: Eric Dooley on 04-08-2023 Monocytes/100 WBC (Bld) 6.3 % Normal . [facility] [place] Comment on above: Performed By: #### C MP, LIPASE, CBC #### [address] Automated neutrophil %Ordere d By: Eric Dooley on 04-08-2023 Neutrophils/100 WBC (Bld) 59.5 % Normal . [facility] [place] Comment on above: Performed By: #### C MP, LIPASE, CBC #### [address] Automated urine color determ inationOrdered By: Eric Dooley on 04-08-2023 Color (U) Yellow Normal Yellow [facility] [place] Comment on above: Order Comment: Name Collection Type:: Clean-Voided Midstream Performed By: #### C MP, LIPASE, CBC #### [facility] [address] Basic Metabolic Panelon 03-15 Creatinine Clr Calc Pharmacy 117.32 Normal [facility] Comment on above: Performed By: #### C MP, LIPASE, CBC #### [address] GFR/1.73 sq M.predicted MDRD (S/P/Bld) [Vol rate/Area] mL/min/{1.73_m2} Normal [facility] Comment on above: Performed By: #### C MP, LIPASE, CBC #### [address] Bilirubin Test strip Ql (U)O rdered By: Eric Dooley on 04-08-2023 Bilirubin Ql (U) Negative Negative [facility] Bilirubin.direct [Mass/volum e] in Serum or PlasmaOrdered By: Eric Dooley on 04-08-2023 Bilirubin.direct [Mass/Vol] 0.10 mg/dL 0.03-0.18 [facility] [place] Bilirubin.total [Mass/volume ] in Serum or PlasmaOrdered By: Eric Dooley on 04-08-2023 Bilirubin [Mass/Vol] 0.4 mg/dL Normal 0.3-1.0 [facility] Comment on above: Performed By: #### C MP, LIPASE, CBC #### [place] [address] [place] Calcium [Mass/volume] in Ser um or PlasmaOrdered By: Eric Dooley on 04-08-2023 Calcium [Mass/Vol] 8.9 mg/dL Normal 8.6-10.3 [facility] Comment on above: Performed By: #### C MP, LIPASE, CBC #### [address] Carbon dioxide, total [Moles /volume] in Serum or PlasmaOrdered By: Eric Dooley on 04-08-2023 CO2 [Moles/Vol] 20.2 mmol/L Low 21.0-31.0 [facility] Comment on above: Performed By: #### C MP, LIPASE, CBC #### [address] Chloride [Moles/volume] in S marbella or PlasmaOrdered By: Eric Dooley on 04-08-2023 Chloride [Moles/Vol] 108 mmol/L High 98-107 [facility] Comment on above: Performed By: #### C MP, LIPASE, CBC #### [address] Complete Blood Count Auto Di ffon 04-08-2023 Mean Corpuscular HGB Conc 34.0 g/dL Normal 32.0-35.0 [facility] Comment on above: Performed By: #### C MP, LIPASE, CBC #### [address] Monocytes/100 WBC (Bld) 19.15 % Normal 0.00-20.00 [facility] Comment on above: Performed By: #### C MP, LIPASE, CBC #### [address] NRBC% 0.3 /100{WBC} Normal 0-0.5 [facility] Comment on above: Performed By: #### C MP, LIPASE, CBC #### [address] Creatinine [Mass/volume] in Serum or PlasmaOrdered By: Eric Dooley on 04-08-2023 Creatinine [Mass/Vol] 0.65 mg/dL Normal 0.60-1.20 [facility] Comment on above: Performed By: #### C MP, LIPASE, CBC #### [place] [address] [place] Dipstick and Microscopicon 0 04-08-2023 Appearance (U) Clear Normal Clear [facility] Comment on above: Order Comment: Name Collection Type:: Clean-Voided Midstream Performed By: #### C MP, LIPASE, CBC #### [facility] [address] [place] [address] [place] Bacteria,Urine None Seen Normal None Seen [facility] Comment on above: Order Comment: Name Collection Type:: Clean-Voided Midstream Performed By: #### C MP, LIPASE, CBC #### [facility] [address] [place] [address] [place] Bilirubin,Urine Negative Normal Negative [facility] Comment on above: Order Comment: Name Collection Type:: Clean-Voided Midstream Performed By: #### C MP, LIPASE, CBC #### [address] Glucose Ql (U) Normal Normal Normal [facility] Comment on above: Order Comment: Name Collection Type:: Clean-Voided Midstream Performed By: #### C MP, LIPASE, CBC #### [place] [address] [place] Hyaline Casts,Urine 0-8 Normal 0-8 [facility] Comment on above: Order Comment: Name Collection Type:: Clean-Voided Midstream Performed By: #### C MP, LIPASE, CBC #### [place] [address] [place] Ketones Ql (U) Negative Normal Negative [facility] Comment on above: Order Comment: Name Collection Type:: Clean-Voided Midstream Performed By: #### C MP, LIPASE, CBC #### [place] [address] [place] Leukocyte esterase Test strip Ql (U) 1+ High Negative [facility] Comment on above: Order Comment: Name Collection Type:: Clean-Voided Midstream Performed By: #### C MP, LIPASE, CBC #### [facility] [address] [place] [address] [place] Nitrite,Urine Negative Normal Negative [facility] Comment on above: Order Comment: Name Collection Type:: Clean-Voided Midstream Performed By: #### C MP, LIPASE, CBC #### [facility] [address] [place] [address] [place] Occult Blood,Urine Trace High Negative [facility] Comment on above: Order Comment: Name Collection Type:: Clean-Voided Midstream Performed By: #### C MP, LIPASE, CBC #### [address] Protein,Urine Negative Normal Negative [facility] Comment on above: Order Comment: Name Collection Type:: Clean-Voided Midstream Performed By: #### C MP, LIPASE, CBC #### [facility] [address] RBC LM.HPF (Urine sed) [#/Area] 0 /[HPF] Normal 0-4 [facility] Comment on above: Order Comment: Name Collection Type:: Clean-Voided Midstream Performed By: #### C MP, LIPASE, CBC #### [address] Specificy [place],Urine 1.017 Normal 1.001-1.030 [facility] Comment on above: Order Comment: Name Collection Type:: Clean-Voided Midstream Performed By: #### C MP, LIPASE, CBC #### [address] Squamous Epithelial Cell,Urine 0-1 Normal 0-2 [facility] Comment on above: Order Comment: Name Collection Type:: Clean-Voided Midstream Performed By: #### C MP, LIPASE, CBC #### [address] Urobilinogen,Urine Normal Normal Normal [facility] Comment on above: Order Comment: Name Collection Type:: Clean-Voided Midstream Performed By: #### C MP, LIPASE, CBC #### [address] WBC,Urine 5-9 High 0-4 [facility] Comment on above: Order Comment: Name Collection Type:: Clean-Voided Midstream Performed By: #### C MP, LIPASE, CBC #### [address] ED Note-Physicianon 04-08-19 ED Note-Physician [id number] 2011 [id number] F Normal [facility] Erythrocyte distribution wid th [Ratio] by Automated countOrdered By: Eric Dooley on 04-08-2023 Erythrocyte distribution width (RBC) [Ratio] 13.7 % Normal 11.9-15.3 [facility] Comment on above: Performed By: #### C MP, LIPASE, CBC #### [facility] [address] [place] [address] [place] Erythrocytes [#/volume] in B lood by Automated countOrdered By: Eric Dooley on 04-08-2023 RBC (Bld) [#/Vol] 4.61 10*6/uL Normal 3.60-5.00 [facility] Comment on above: Performed By: #### C MP, LIPASE, CBC #### [facility] [address] Ethanol [Mass/volume] in Ser um or PlasmaOrdered By: Eric Dooley on 04-08-2023 Ethanol [Mass/Vol] mg/dL Normal [facility] Comment on above: Performed By: #### C MP, LIPASE, CBC #### [facility] [address] Ethanol [Mass/Vol] TNP [facility] Comment on above: Test not performed Ethyl Alcohol Profileon 03-15 Percent Ethanol Not performed Normal [facility] Comment on above: Result Comment: PERF ORMED BY: [place] [address] PATHOLOGIST DIRECTOR OF GLOBAL TALENT LEE CARDOSO M.D. Performed By: #### C MP, LIPASE, CBC #### [facility] [address] [place] [address] Glucose [Mass/volume] in Ser um or PlasmaOrdered By: Eric Dooley on 04-08-2023 Glucose [Mass/Vol] 85 mg/dL Normal 70-100 [facility] Comment on above: ADA recommended refe rence rangeRandom Glucose Reference Range is dependent on time and content of last meal. Glucose of more than 200 mg/dL in a nonstressed, ambulatory subject supports the diagnosis of Diabetes Mellitus. Result Comment: [facility] Glucose Reference Range is dependent on time and content of last meal. Glucose of more than 200 mg/dL in a nonstressed, ambulatory subject supports the diagnosis of Diabetes Mellitus. ADA recommended reference range Performed By: #### C MP, LIPASE, CBC #### [address] HCG ( test) IA.rapi d Ql (U)Ordered By: PROVIDER TEMP on 04-08-2023 HCG ( test) Ql (U) Negative [facility] HCG,Urineon 04-08-2023 Beta HCG ( test) Ql (U) Negative Normal [facility] Comment on above: Order Comment: Name Collection Type:: Clean-Voided Midstream Result Comment: PERF ORMED BY: [place] [address] PATHOLOGIST DIRECTOR OF GLOBAL TALENT LEE CARDOSO M.D. Performed By: #### C MP, LIPASE, CBC #### [address] Hematocrit [Volume Fraction] of Blood by Automated countOrdered By: Eric Dooley on 04-08-2023 Hematocrit (Bld) [Volume fraction] 45.6 % Normal 34.0-46.4 [facility] Comment on above: Performed By: #### C MP, LIPASE, CBC #### [address] Hemoglobin [Mass/volume] in BloodOrdered By: Eric Dooley on 04-08-2023 Hemoglobin (Bld) [Mass/Vol] 15.5 g/dL High 11.8-15.4 [facility] Comment on above: Performed By: #### C MP, LIPASE, CBC #### [address] Hepatic Panelon 04-08-2023 Albumin [Mass/Vol] 4.1 g/dL Normal 3.5-5.7 [facility] Comment on above: Performed By: #### C MP, LIPASE, CBC #### [address] Bilirubin,Indirect 0.3 mg/dL Normal [facility] Comment on above: Performed By: #### C MP, LIPASE, CBC #### [facility] [address] Bilirubin.indirect [Mass/Vol] 0.10 mg/dL Normal 0.03-0.18 [facility] Comment on above: Performed By: #### C MP, LIPASE, CBC #### [facility] [address] Ketones Auto test strip (U) [Mass/Vol]Ordered By: Eric Dooley on 04-08-2023 Ketones (U) [Mass/Vol] Negative Negative [facility] Laboratory - UrinalysisOrder ed By: Eric Dooley on 04-08-2023 Hyaline casts LM Ql (Urine sed) 0-8 [LPF] 0-8 [facility] Leukocytes [#/volume] correc jose for nucleated erythrocytes in Blood by Automated counOrdered By: Eric Dooley on 04-08-2023 WBC corrected for nucl RBC Auto (Bld) [#/Vol] 5.1 10*3/uL 3.8-11.6 [facility] Leukocytes [#/volume] in Blo od by Automated countOrdered By: Eric Dooley on 04-08-2023 WBC (Bld) [#/Vol] 5.1 10*3/uL Normal 3.8-11.6 [facility] Comment on above: Performed By: #### C MP, LIPASE, CBC #### [facility] [address] Lipase [Enzymatic activity/v olume] in Serum or PlasmaOrdered By: Eric Dooley on 04-08-2023 Lipase [Catalytic activity/Vol] 68.0 U/L Normal 11.0-82.0 [facility] Comment on above: Result Comment: PERF ORMED BY: [place] [address] PATHOLOGIST DIRECTOR OF GLOBAL TALENT LEE CARDOSO M.D. Performed By: #### C MP, LIPASE, CBC #### [facility] [address] [place] [address] Lymphocytes [#/volume] in Bl ood by Automated countOrdered By: Eric Dooley on 04-08-2023 Lymphocytes (Bld) [#/Vol] 1.6 10*3/uL Normal 1.00-4.8 [facility] Comment on above: Performed By: #### C MP, LIPASE, CBC #### [facility] [address] Lymphocytes/100 leukocytes i n Blood by Automated countOrdered By: Eric Dooley on 04-08-2023 Lymphocytes/100 WBC (Bld) 32.4 % Normal . [facility] Comment on above: Performed By: #### C MP, LIPASE, CBC #### [address] MCH [Entitic mass] by Automa jose countOrdered By: Eric Dooley on 04-08-2023 MCH (RBC) [Entitic mass] 33.6 pg Normal 24.7-34.3 [facility] [place] Comment on above: Performed By: #### C MP, LIPASE, CBC #### [address] MCHC Auto (RBC) [Mass/Vol]Or dered By: Eric Dooley on 04-08-2023 MCHC (RBC) [Mass/Vol] 34.0 g/dL 32.0-35.0 [facility] MCV [Entitic volume] by Auto mated countOrdered By: Eric Dooley on 04-08-2023 MCV (RBC) [Entitic vol] 98.9 fL Normal 80-100 [facility] Comment on above: Performed By: #### C MP, LIPASE, CBC #### [address] Monocyte distribution width [Entitic volume] in Blood by AutomatedOrdered By: Eric Dooley on 04-08-2023 Monocyte distribution width Auto (Bld) [Entitic vol] 19.15 % 0.00-20.00 [facility] Neutrophils [#/volume] in Bl ood by Automated countOrdered By: Eric Dooley on 04-08-2023 Neutrophils (Bld) [#/Vol] 3.0 10*3/uL Normal 1.8-7.7 [facility] Comment on above: Performed By: #### C MP, LIPASE, CBC #### [address] Nitrite Test strip Ql (U)Ord ered By: Eric Dooley on 04-08-2023 Nitrite Ql (U) Negative Negative [facility] No Panel InformationOrdered By: Eric Dooley on 04-08-2023 Estimated GFR (CKD-EPI) > 60.0 mL/Min [facility] Pharmacy Creatinine Clearance (Chem 117.32 [facility] Nucleated erythrocytes [Pres ence] in Blood by Automated countOrdered By: Eric Dooley on 04-08-2023 Nucleated RBC Auto Ql (Bld) 0.3 /100{WBC} 0-0.5 [facility] Platelet mean volume [Entiti c volume] in Blood by Automated countOrdered By: Eric Dooley on 04-08-2023 Platelet mean volume (Bld) [Entitic vol] 8.6 fL Normal 6.3-10.7 [facility] Comment on above: Performed By: #### C MP, LIPASE, CBC #### [address] Platelets [#/volume] in Bloo d by Automated countOrdered By: Eric Dooley on 04-08-2023 Platelets (Bld) [#/Vol] 137 10*3/uL Low 150-450 [facility] Comment on above: Performed By: #### C MP, LIPASE, CBC #### [place] [address] [place] Potassium [Moles/volume] in Serum or PlasmaOrdered By: Eric Dooley on 04-08-2023 Potassium [Moles/Vol] 4.3 mmol/L Normal 3.5-5.1 [facility] Comment on above: Hemolysis is present at a level that could interfere with the result. Result Comment: Hemo lysis is present at a level that could interfere with the result. Performed By: #### C MP, LIPASE, CBC #### [address] Protein Auto test strip (U) [Mass/Vol]Ordered By: Eric Dooley on 04-08-2023 Protein (U) [Mass/Vol] Negative Negative [facility] Protein [Mass/volume] in Ser um or PlasmaOrdered By: Eric Dooley on 04-08-2023 Protein [Mass/Vol] 7.6 g/dL Normal 6.4-8.9 [facility] Comment on above: Performed By: #### C MP, LIPASE, CBC #### [address] Serum globulin measurement b y calculation (mass/volume)Ordered By: Eric Dooley on 04-08-2023 Globulin (S) [Mass/Vol] 3.5 g/dL Normal [facility] Comment on above: Performed By: #### C MP, LIPASE, CBC #### [address] Serum or plasma albumin/glob ulin mass ratioOrdered By: Eric Dooley on 04-08-2023 Albumin/Globulin [Mass ratio] 1.2 {ratio} [facility] Comment on above: Performed By: #### C MP, LIPASE, CBC #### [address] Serum or plasma anion gap de terminationOrdered By: Eric Dooley on 04-08-2023 Anion gap [Moles/Vol] 12.1 mmol/L Normal 6.0-15.0 [facility] Comment on above: Performed By: #### C MP, LIPASE, CBC #### [address] Serum or plasma non-glucuron idated bilirubin measurement (mass/volume)Ordered By: Eric Dooley on 04-08-2023 Bilirubin.indirect [Mass/Vol] 0.3 mg/dL [facility] Sodium [Moles/volume] in Ser um or PlasmaOrdered By: Eric Dooley on 04-08-2023 Sodium [Moles/Vol] 136 mmol/L Normal 136-145 [facility] Comment on above: Performed By: #### C MP, LIPASE, CBC #### [address] Specific gravity Auto test s trip (U) [Rel density]Ordered By: Eric Dooley on 04-08-2023 Specific gravity (U) [Rel density] 1.017 1.001-1.030 [facility] Squamous epithelial cells de tection in urine sediment by light microscopyOrdered By: Eric Dooley on 04-08-2023 Epithelial cells.squamous LM Ql (Urine sed) 0-1 [HPF] 0-2 [facility] Urea nitrogen [Mass/volume] in Serum or PlasmaOrdered By: Eric Dooley on 04-08-2023 Urea nitrogen [Mass/Vol] 16 mg/dL Normal 7-25 [facility] Comment on above: Performed By: #### C MP, LIPASE, CBC #### [facility] [address] Urine Cultureon 04-08-2023 Bacteria identified Cx Nom (U) 10,000 colonies/ml mixed bacterial skin contaminants 2 Days PERFORMED BY: [place] [address] PATHOLOGIST DIRECTOR OF GLOBAL TALENT LEE CARDOSO M.D. Normal [facility] Comment on above: Performed By: #### C MP, LIPASE, CBC #### [facility] [address] Urine bacteria detection by automated methodOrdered By: Eric Dooley on 04-08-2023 Bacteria Auto Ql (U) None seen None Seen [facility] Urine clarity by refractomet ry automatedOrdered By: Eric Dooley on 04-08-2023 Clarity Refractometry automated (U) Clear Clear [facility] Urine culture routineOrdered By: Eric Dooley on 04-08-2023 Bacteria identified Cx Nom (U) 2 Days [facility] Urine glucose measurement by automated test strip (mass/volume)Ordered By: Eric Dooley on 04-08-2023 Glucose Auto test strip (U) [Mass/Vol] Normal mg/dL Normal [facility] Urine hemoglobin detection b y automated test stripOrdered By: Eric Dooley on 04-08-2023 Hemoglobin Auto test strip Ql (U) Trace Negative [facility] Urine leukocyte esterase det ection by automated test stripOrdered By: Eric Dooley on 04-08-2023 Leukocyte esterase Auto test strip Ql (U) 1+ Negative [facility] Urine pH measurement by auto mated test stripOrdered By: Eric Dooley on 04-08-2023 pH (U) 7.5 [pH] Normal 5.0-9.0 [facility] Comment on above: Order Comment: Name Collection Type:: Clean-Voided Midstream Performed By: #### C MP, LIPASE, CBC #### [facility] [address] Urobilinogen Auto test strip (U) [Mass/Vol]Ordered By: Eric Dooley on 04-08-2023 Urobilinogen (U) [Mass/Vol] Normal mg/dL Normal [facility] Alanine aminotransferase [En zymatic activity/volume] in Serum or PlasmaOrdered By: Declan Marina on 04-06-2023 ALT [Catalytic activity/Vol] 273 U/L High 7-52 [facility] Comment on above: Performed By: #### E ODALIS, MG, CMP, CBC #### [place] [address] [place] Albumin [Mass/volume] in Ser um or Plasma by Bromocresol green (BCG) dye binding methoOrdered By: Declan Marina on 04-06-2023 Albumin BCG dye [Mass/Vol] 4.1 g/dL 3.5-5.7 [facility] Alkaline phosphatase [Enzyma tic activity/volume] in Serum or PlasmaOrdered By: Declan Marina on 04-06-2023 ALP [Catalytic activity/Vol] 73 U/L Normal 34-104 [facility] Comment on above: Performed By: #### E ODALIS, MG, CMP, CBC #### [facility] [address] [place] [address] Aspartate aminotransferase [ Enzymatic activity/volume] in Serum or PlasmaOrdered By: Declan Marina on 04-06-2023 AST [Catalytic activity/Vol] 285 U/L High 13-39 [facility] Comment on above: Performed By: #### E ODALIS, MG, CMP, CBC #### [address] Automated basophil %Ordered By: Declan Marina on 04-06-2023 Basophils/100 WBC (Bld) 0.7 % Normal . [facility] Comment on above: Performed By: #### E ODALIS, MG, CMP, CBC #### [address] Automated basophil countOrde red By: Declan Marina on 04-06-2023 Basophils (Bld) [#/Vol] 0.0 10*3/uL Normal 0.0-0.2 [facility] Comment on above: Result Comment: PERF ORMED BY: [place] [address] PATHOLOGIST DIRECTOR OF GLOBAL TALENT LEE CARDOSO M.D. Performed By: #### E ODALIS, MG, CMP, CBC #### [address] Automated blood monocyte cou ntOrdered By: Declan Marina on 04-06-2023 Monocytes (Bld) [#/Vol] 0.3 10*3/uL Normal 0.0-0.8 [facility] Comment on above: Performed By: #### E ODALIS, MG, CMP, CBC #### [address] Automated eosinophil %Ordere d By: Declan Marina on 04-06-2023 Eosinophils/100 WBC (Bld) 1.0 % Normal . [facility] Comment on above: Performed By: #### E ODALIS, MG, CMP, CBC #### [address] Automated eosinophil countOr dered By: Declan Marina on 04-06-2023 Eosinophils (Bld) [#/Vol] 0.1 10*3/uL Normal 0.0-0.45 [facility] Comment on above: Performed By: #### E ODALIS, MG, CMP, CBC #### [address] Automated monocyte %Ordered By: Declan Marina on 04-06-2023 Monocytes/100 WBC (Bld) 4.2 % Normal . [facility] Comment on above: Performed By: #### E ODALIS, MG, CMP, CBC #### [place] [address] Automated neutrophil %Ordere d By: Declan Marina on 04-06-2023 Neutrophils/100 WBC (Bld) 60.9 % Normal . [facility] Comment on above: Performed By: #### E ODALIS, MG, CMP, CBC #### [facility] [address] [place] [address] Bilirubin.total [Mass/volume ] in Serum or PlasmaOrdered By: Declan Marina on 04-06-2023 Bilirubin [Mass/Vol] 0.2 mg/dL Low 0.3-1.0 [facility] Comment on above: Performed By: #### E ODALIS, MG, CMP, CBC #### [facility] [address] [place] [address] Calcium [Mass/volume] in Ser um or PlasmaOrdered By: Declan Marina on 04-06-2023 Calcium [Mass/Vol] 8.6 mg/dL Normal 8.6-10.3 [facility] Comment on above: Performed By: #### E ODALIS, MG, CMP, CBC #### [facility] [address] [place] [address] Carbon dioxide, total [Moles /volume] in Serum or PlasmaOrdered By: Declan Marina on 04-06-2023 CO2 [Moles/Vol] 21.9 mmol/L Normal 21.0-31.0 [facility] Comment on above: Performed By: #### E ODALIS, MG, CMP, CBC #### [facility] [address] [place] [address] [place] Chloride [Moles/volume] in S marbella or PlasmaOrdered By: Declan Marina on 04-06-2023 Chloride [Moles/Vol] 109 mmol/L High 98-107 [facility] Comment on above: Performed By: #### E ODALIS, MG, CMP, CBC #### [facility] [address] [place] [address] Complete Blood Count Auto Di ffon 04-06-2023 Mean Corpuscular HGB Conc 34.5 g/dL Normal 32.0-35.0 [facility] Comment on above: Performed By: #### E ODALIS, MG, CMP, CBC #### [address] Monocytes/100 WBC (Bld) 17.69 % Normal 0.00-20.00 [facility] Comment on above: Performed By: #### E ODALIS, MG, CMP, CBC #### [address] NRBC% 0.2 /100{WBC} Normal 0-0.5 [facility] Comment on above: Performed By: #### E ODALIS, MG, CMP, CBC #### [address] Comprehensive Metabolic Pane mary beth 04-06-2023 Albumin [Mass/Vol] 4.1 g/dL Normal 3.5-5.7 [facility] Comment on above: Performed By: #### E ODALIS, MG, CMP, CBC #### [address] Creatinine Clr Calc Pharmacy 154.57 Normal [facility] Comment on above: Result Comment: PERF ORMED BY: [place] [address] PATHOLOGIST DIRECTOR OF GLOBAL TALENT LEE CARDOSO M.D. Performed By: #### E ODALIS, MG, CMP, CBC #### [address] GFR/1.73 sq M.predicted MDRD (S/P/Bld) [Vol rate/Area] mL/min/{1.73_m2} Normal [facility] Comment on above: Performed By: #### E ODALIS, MG, CMP, CBC #### [address] Creatinine [Mass/volume] in Serum or PlasmaOrdered By: Declan Marina on 04-06-2023 Creatinine [Mass/Vol] 0.49 mg/dL Low 0.60-1.20 [facility] Comment on above: Performed By: #### E ODALIS, MG, CMP, CBC #### [facility] [address] Erythrocyte distribution wid th [Ratio] by Automated countOrdered By: Declan Marina on 04-06-2023 Erythrocyte distribution width (RBC) [Ratio] 13.9 % Normal 11.9-15.3 [facility] Comment on above: Performed By: #### E ODALIS, MG, CMP, CBC #### [facility] [address] [place] [address] [place] Erythrocytes [#/volume] in B lood by Automated countOrdered By: Declan Marina on 04-06-2023 RBC (Bld) [#/Vol] 4.33 10*6/uL Normal 3.60-5.00 [facility] Comment on above: Performed By: #### E ODALIS, MG, CMP, CBC #### [address] Ethanol [Mass/volume] in Ser um or PlasmaOrdered By: Declan Marina on 04-06-2023 Ethanol [Mass/Vol] 339 mg/dL Normal [facility] Comment on above: Performed By: #### E ODALIS, MG, CMP, CBC #### [facility] [address] [place] [address] Ethanol [Mass/Vol] 0.339 % [facility] Ethyl Alcohol Profileon 03-15 Percent Ethanol 0.339 % Normal [facility] Comment on above: Result Comment: PERF ORMED BY: [place] [address] PATHOLOGIST DIRECTOR OF GLOBAL TALENT LEE CARDOSO M.D. Performed By: #### E ODALIS, MG, CMP, CBC #### [facility] [address] [place] [address] Glucose [Mass/volume] in Ser um or PlasmaOrdered By: Declan Marina on 04-06-2023 Glucose [Mass/Vol] 83 mg/dL Normal 70-100 [facility] Comment on above: ADA recommended refe rence rangeRandom Glucose Reference Range is dependent on time and content of last meal. Glucose of more than 200 mg/dL in a nonstressed, ambulatory subject supports the diagnosis of Diabetes Mellitus. Result Comment: [facility] Glucose Reference Range is dependent on time and content of last meal. Glucose of more than 200 mg/dL in a nonstressed, ambulatory subject supports the diagnosis of Diabetes Mellitus. ADA recommended reference range Performed By: #### E ODALIS, MG, CMP, CBC #### [facility] [address] Hematocrit [Volume Fraction] of Blood by Automated countOrdered By: Declan Marina on 04-06-2023 Hematocrit (Bld) [Volume fraction] 42.6 % Normal 34.0-46.4 [facility] Comment on above: Performed By: #### E ODALIS, MG, CMP, CBC #### [facility] [address] Hemoglobin [Mass/volume] in BloodOrdered By: Declan Marina on 04-06-2023 Hemoglobin (Bld) [Mass/Vol] 14.7 g/dL Normal 11.8-15.4 [facility] Comment on above: Performed By: #### E ODALIS, MG, CMP, CBC #### [facility] [address] [place] [address] Leukocytes [#/volume] correc jose for nucleated erythrocytes in Blood by Automated counOrdered By: Declan Marina on 04-06-2023 WBC corrected for nucl RBC Auto (Bld) [#/Vol] 6.9 10*3/uL 3.8-11.6 [facility] Leukocytes [#/volume] in Blo od by Automated countOrdered By: Declan Marina on 04-06-2023 WBC (Bld) [#/Vol] 6.9 10*3/uL Normal 3.8-11.6 [facility] Comment on above: Performed By: #### E ODALIS, MG, CMP, CBC #### [facility] [address] [place] [address] [place] Lymphocytes [#/volume] in Bl ood by Automated countOrdered By: Declan Marina on 04-06-2023 Lymphocytes (Bld) [#/Vol] 2.3 10*3/uL Normal 1.00-4.8 [facility] Comment on above: Performed By: #### E ODALIS, MG, CMP, CBC #### [facility] [address] [place] [address] Lymphocytes/100 leukocytes i n Blood by Automated countOrdered By: Declan Marina on 04-06-2023 Lymphocytes/100 WBC (Bld) 33.2 % Normal . [facility] Comment on above: Performed By: #### E ODALIS, MG, CMP, CBC #### [facility] [address] [place] [address] MCH [Entitic mass] by Automa jose countOrdered By: Declan Marina on 04-06-2023 MCH (RBC) [Entitic mass] 34.0 pg Normal 24.7-34.3 [facility] Comment on above: Performed By: #### E ODALIS, MG, CMP, CBC #### [address] MCHC Auto (RBC) [Mass/Vol]Or dered By: Declan Marina on 04-06-2023 MCHC (RBC) [Mass/Vol] 34.5 g/dL 32.0-35.0 [facility] MCV [Entitic volume] by Auto mated countOrdered By: Declan Marina on 04-06-2023 MCV (RBC) [Entitic vol] 98.5 fL Normal 80-100 [facility] Comment on above: Performed By: #### E ODALIS, MG, CMP, CBC #### [facility] [address] [place] [address] Monocyte distribution width [Entitic volume] in Blood by AutomatedOrdered By: Declan Marina on 04-06-2023 Monocyte distribution width Auto (Bld) [Entitic vol] 17.69 % 0.00-20.00 [facility] Neutrophils [#/volume] in Bl ood by Automated countOrdered By: Declan Marina on 04-06-2023 Neutrophils (Bld) [#/Vol] 4.2 10*3/uL Normal 1.8-7.7 [facility] Comment on above: Performed By: #### E ODALIS, MG, CMP, CBC #### [place] [id number] [place] No Panel InformationOrdered By: Declan Marina on 04-06-2023 Estimated GFR (CKD-EPI) > 60.0 mL/Min [facility] Pharmacy Creatinine Clearance (Chem 154.57 [facility] Nucleated erythrocytes [Pres ence] in Blood by Automated countOrdered By: Declan Marina on 04-06-2023 Nucleated RBC Auto Ql (Bld) 0.2 /100{WBC} 0-0.5 [facility] Platelet mean volume [Entiti c volume] in Blood by Automated countOrdered By: Declan Marina on 04-06-2023 Platelet mean volume (Bld) [Entitic vol] 8.0 fL Normal 6.3-10.7 [facility] Comment on above: Performed By: #### E ODALIS, MG, CMP, CBC #### [facility] [address] [place] [address] Platelets [#/volume] in Bloo d by Automated countOrdered By: Declan Marina on 04-06-2023 Platelets (Bld) [#/Vol] 164 10*3/uL Normal 150-450 [facility] [place] Comment on above: Performed By: #### E ODALIS, MG, CMP, CBC #### [facility] [address] [place] [address] Potassium [Moles/volume] in Serum or PlasmaOrdered By: Declan Marina on 04-06-2023 Potassium [Moles/Vol] 4.3 mmol/L Normal 3.5-5.1 [facility] Comment on above: Performed By: #### E ODALIS, MG, CMP, CBC #### [facility] [address] [place] [address] [place] Protein [Mass/volume] in Ser um or PlasmaOrdered By: Declan Marina on 04-06-2023 Protein [Mass/Vol] 7.5 g/dL Normal 6.4-8.9 [facility] Comment on above: Performed By: #### E ODALIS, MG, CMP, CBC #### [facility] [address] [place] [address] Serum globulin measurement b y calculation (mass/volume)Ordered By: Declan Marina on 04-06-2023 Globulin (S) [Mass/Vol] 3.4 g/dL [facility] Comment on above: Performed By: #### E ODALIS, MG, CMP, CBC #### [facility] [address] [place] [address] Serum or plasma albumin/glob ulin mass ratioOrdered By: Declan Marina on 04-06-2023 Albumin/Globulin [Mass ratio] 1.2 {ratio} [facility] Comment on above: Performed By: #### E ODALIS, MG, CMP, CBC #### [facility] [address] [place] [address] Serum or plasma anion gap de terminationOrdered By: Declan Marina on 04-06-2023 Anion gap [Moles/Vol] 12.4 mmol/L Normal 6.0-15.0 [facility] Comment on above: Performed By: #### E ODALIS MG, CMP, CBC #### [facility] [address] [place] [address] Sodium [Moles/volume] in Ser um or PlasmaOrdered By: Declan Marina on 04-06-2023 Sodium [Moles/Vol] 139 mmol/L Normal 136-145 [facility] Comment on above: Performed By: #### E ODALIS MG, CMP, CBC #### [facility] [address] [place] [address] Urea nitrogen [Mass/volume] in Serum or PlasmaOrdered By: Declan Marina on 04-06-2023 Urea nitrogen [Mass/Vol] 11 mg/dL Normal 7-25 [facility] [place] Comment on above: Performed By: #### E ODALIS, MG, CMP, CBC #### [facility] [address] [place] [address] ED Note-Physicianon 03-18-19 ED Note-Physician [id number] 2009 [id number] F [facility] Alanine aminotransferase [En zymatic activity/volume] in Serum or PlasmaOrdered By: Delvis Benz on 03-17-2023 ALT [Catalytic activity/Vol] 131 U/L High 7-52 [facility] [place] Comment on above: Performed By: #### E ODALIS, MG, CMP, CBC #### [facility] [address] [place] [address] Albumin [Mass/volume] in Ser um or Plasma by Bromocresol green (BCG) dye binding methoOrdered By: Delvis Benz on 03-17-2023 Albumin BCG dye [Mass/Vol] 4.2 g/dL 3.5-5.7 [facility] [place] Alkaline phosphatase [Enzyma tic activity/volume] in Serum or PlasmaOrdered By: Delvis Benz on 03-17-2023 ALP [Catalytic activity/Vol] 64 U/L Normal 34-104 [facility] [place] Comment on above: Performed By: #### E ODALIS, MG, CMP, CBC #### [facility] [address] [place] [address] Amphetamine Screen Ql (U)Ord ered By: Delvis Benz on 03-17-2023 Amphetamines Ql (U) Negative Negative [facility] Aspartate aminotransferase [ Enzymatic activity/volume] in Serum or PlasmaOrdered By: Delvis Benz on 03-17-2023 AST [Catalytic activity/Vol] 126 U/L High 13-39 [facility] [place] Comment on above: Performed By: #### E ODALIS, MG, CMP, CBC #### [facility] [address] [place] [address] Automated basophil %Ordered By: Delvis Benz on 03-17-2023 Basophils/100 WBC (Bld) 0.6 % Normal . [facility] [place] Comment on above: Performed By: #### E ODALIS, MG, CMP, CBC #### [facility] [address] [place] [address] Automated basophil countOrde red By: Delvis Benz on 03-17-2023 Basophils (Bld) [#/Vol] 0.0 10*3/uL Normal 0.0-0.2 [facility] Comment on above: Result Comment: PERF ORMED BY: [place] [address] PATHOLOGIST DIRECTOR OF GLOBAL TALENT LEE CARDOSO M.D. Performed By: #### E ODALIS, MG, CMP, CBC #### [address] Automated blood monocyte cou ntOrdered By: Delvis Benz on 03-17-2023 Monocytes (Bld) [#/Vol] 0.4 10*3/uL Normal 0.0-0.8 [facility] [place] Comment on above: Performed By: #### E ODALIS, MG, CMP, CBC #### [address] Automated eosinophil %Ordere d By: Delvis Benz on 03-17-2023 Eosinophils/100 WBC (Bld) 1.1 % Normal . [facility] [place] Comment on above: Performed By: #### E ODALIS, MG, CMP, CBC #### [address] Automated eosinophil countOr dered By: Delvis Benz on 03-17-2023 Eosinophils (Bld) [#/Vol] 0.1 10*3/uL Normal 0.0-0.45 [facility] [place] Comment on above: Performed By: #### E ODALIS, MG, CMP, CBC #### [address] Automated erythrocytes count in urine sediment (number/area)Ordered By: Delvis Benz on 03-17-2023 RBC Auto (Urine sed) [#/Area] 0-1 [HPF] 0-4 [facility] Automated leukocytes count i n urine sediment (number/area)Ordered By: Delvis Benz on 03-17-2023 WBC Auto (Urine sed) [#/Area] 10-19 [HPF] 0-4 [facility] Automated monocyte %Ordered By: Delvis Benz on 03-17-2023 Monocytes/100 WBC (Bld) 5.0 % Normal . [facility] [place] Comment on above: Performed By: #### E ODALIS, MG, CMP, CBC #### [facility] [address] [place] [address] Automated neutrophil %Ordere d By: Delvis Benz on 03-17-2023 Neutrophils/100 WBC (Bld) 43.9 % Normal . [facility] [place] Comment on above: Performed By: #### E ODALIS, MG, CMP, CBC #### [facility] [address] Automated urine color determ inationOrdered By: Delvis Benz on 03-17-2023 Color (U) Yellow Normal Yellow [facility] [place] Comment on above: Order Comment: Name Collection Type:: Clean-Voided Midstream Performed By: #### E ODALIS, MG, CMP, CBC #### [facility] [address] Barbiturates [Presence] in U rine by Screen methodOrdered By: Delvis Benz on 03-17-2023 Barbiturates Screen Ql (U) Negative Negative [facility] Benzodiazepines Screen Ql (U )Ordered By: Delvis Benz on 03-17-2023 Benzodiazepines Ql (U) Negative Negative [facility] Benzoylecgonine [Presence] i n Urine by Screen methodOrdered By: Delvis Benz on 03-17-2023 Benzoylecgonine Screen Ql (U) Positive Negative [facility] Bilirubin Test strip Ql (U)O rdered By: Delvis Benz on 03-17-2023 Bilirubin Ql (U) Negative Negative [facility] Bilirubin.total [Mass/volume ] in Serum or PlasmaOrdered By: Delvis Benz on 03-17-2023 Bilirubin [Mass/Vol] 0.9 mg/dL Normal 0.3-1.0 [facility] Comment on above: Performed By: #### E ODALIS, MG, CMP, CBC #### [facility] [address] [place] [address] Calcium [Mass/volume] in Ser um or PlasmaOrdered By: Delvis Benz on 03-17-2023 Calcium [Mass/Vol] 8.8 mg/dL Normal 8.6-10.3 [facility] Comment on above: Performed By: #### E ODALIS, MG, CMP, CBC #### [facility] [address] [place] [address] Cannabinoids [Presence] in U rine by Screen methodOrdered By: Delvis Benz on 03-17-2023 Cannabinoids Screen Ql (U) Negative Negative [facility] [place] Comment on above: These are unconfirme d results and should not be used for legal purposes. Drug Cut-Off Concentration: AMPH 1000 ng/mL JANELL 200 ng/mL JAMES 200 ng/mL COCM 300 ng/mL OP 300 ng/mL PCP 25 ng/mL THC 20 ng/mL Carbon dioxide, total [Moles /volume] in Serum or PlasmaOrdered By: Delvis Benz on 03-17-2023 CO2 [Moles/Vol] 25.3 mmol/L Normal 21.0-31.0 [facility] Comment on above: Performed By: #### E ODALIS, MG, CMP, CBC #### [address] Chloride [Moles/volume] in S marbella or PlasmaOrdered By: Delvis Benz on 03-17-2023 Chloride [Moles/Vol] 104 mmol/L Normal 98-107 [facility] Comment on above: Performed By: #### E ODALIS, MG, CMP, CBC #### [address] Complete Blood Count Auto Di ffon 03-17-2023 Mean Corpuscular HGB Conc 34.9 g/dL Normal 32.0-35.0 [facility] Comment on above: Performed By: #### E ODALIS, MG, CMP, CBC #### [address] Monocytes/100 WBC (Bld) 18.74 % Normal 0.00-20.00 [facility] Comment on above: Performed By: #### E ODALIS, MG, CMP, CBC #### [address] NRBC% 0.1 /100{WBC} Normal 0-0.5 [facility] Comment on above: Performed By: #### E ODALIS, MG, CMP, CBC #### [address] Comprehensive Metabolic Pane mary beth 03-17-2023 Albumin [Mass/Vol] 4.2 g/dL Normal 3.5-5.7 [facility] Comment on above: Performed By: #### E ODALIS, MG, CMP, CBC #### [facility] [address] Creatinine Clr Calc Pharmacy 119.57 Normal [facility] Comment on above: Performed By: #### E ODALIS, MG, CMP, CBC #### [facility] [address] [place] [address] [place] GFR/1.73 sq M.predicted MDRD (S/P/Bld) [Vol rate/Area] mL/min/{1.73_m2} Normal [facility] Comment on above: Performed By: #### E ODALIS, MG, CMP, CBC #### [facility] [address] Creatinine [Mass/volume] in Serum or PlasmaOrdered By: Delvis Benz on 03-17-2023 Creatinine [Mass/Vol] 0.63 mg/dL Normal 0.60-1.20 [facility] Comment on above: Performed By: #### E ODALIS, MG, CMP, CBC #### [facility] [address] [place] [address] [place] Dipstick and Microscopicon 0 03-17-2023 Appearance (U) Clear Normal Clear [facility] Comment on above: Order Comment: Name Collection Type:: Clean-Voided Midstream Performed By: #### E ODALIS, MG, CMP, CBC #### [facility] [address] Bacteria,Urine None Seen Normal None Seen [facility] Comment on above: Order Comment: Name Collection Type:: Clean-Voided Midstream Performed By: #### E ODALIS, MG, CMP, CBC #### [facility] [address] [place] [address] [place] Bilirubin,Urine Negative Normal Negative [facility] Comment on above: Order Comment: Name Collection Type:: Clean-Voided Midstream Performed By: #### E ODALIS, MG, CMP, CBC #### [facility] [address] Glucose Ql (U) Normal Normal Normal [facility] Comment on above: Order Comment: Name Collection Type:: Clean-Voided Midstream Performed By: #### E ODALIS, MG, CMP, CBC #### [facility] [address] [place] [address] [place] Hyaline Casts,Urine 0-8 Normal 0-8 [facility] Comment on above: Order Comment: Name Collection Type:: Clean-Voided Midstream Performed By: #### E ODALIS, MG, CMP, CBC #### [facility] [address] Ketones Ql (U) Negative Normal Negative [facility] Comment on above: Order Comment: Name Collection Type:: Clean-Voided Midstream Performed By: #### E ODALIS, MG, CMP, CBC #### [address] Leukocyte esterase Test strip Ql (U) 2+ High Negative [facility] Comment on above: Order Comment: Name Collection Type:: Clean-Voided Midstream Performed By: #### E ODALIS, MG, CMP, CBC #### [facility] [address] [place] [address] [place] Nitrite,Urine Negative Normal Negative [facility] Comment on above: Order Comment: Name Collection Type:: Clean-Voided Midstream Performed By: #### E ODALIS, MG, CMP, CBC #### [place] [address] [place] Occult Blood,Urine Negative Normal Negative [facility] Comment on above: Order Comment: Name Collection Type:: Clean-Voided Midstream Performed By: #### E ODALIS, MG, CMP, CBC #### [facility] [address] [place] [address] [place] Protein,Urine Negative Normal Negative [facility] Comment on above: Order Comment: Name Collection Type:: Clean-Voided Midstream Performed By: #### E ODALIS, MG, CMP, CBC #### [facility] [address] [place] [address] [place] RBC LM.HPF (Urine sed) [#/Area] 0 /[HPF] Normal 0-4 [facility] Comment on above: Order Comment: Name Collection Type:: Clean-Voided Midstream Performed By: #### E ODALIS, MG, CMP, CBC #### [address] Specificy [place],Urine 1.029 Normal 1.001-1.030 [facility] Comment on above: Order Comment: Name Collection Type:: Clean-Voided Midstream Performed By: #### E ODALIS, MG, CMP, CBC #### [address] Squamous Epithelial Cell,Urine 3-4 High 0-2 [facility] Comment on above: Order Comment: Name Collection Type:: Clean-Voided Midstream Performed By: #### E ODALIS, MG, CMP, CBC #### [address] Urobilinogen,Urine Normal Normal Normal [facility] Comment on above: Order Comment: Name Collection Type:: Clean-Voided Midstream Performed By: #### E ODALIS, MG, CMP, CBC #### [place] [address] [place] WBC,Urine 10-19 High 0-4 [facility] Comment on above: Order Comment: Name Collection Type:: Clean-Voided Midstream Performed By: #### E ODALIS, MG, CMP, CBC #### [address] Yeast,Urine None Seen Normal None Seen [facility] Comment on above: Order Comment: Name Collection Type:: Clean-Voided Midstream Performed By: #### E ODALIS, MG, CMP, CBC #### [place] [address] [place] Drug Screen,Urineon 03-17-19 24 Amphetamine Screen,Urine Negative Normal Negative [facility] Comment on above: Performed By: #### E ODALIS, MG, CMP, CBC #### [address] Barbiturate Screen,Urine Negative Normal Negative [facility] Comment on above: Performed By: #### E ODALIS, MG, CMP, CBC #### [address] Benzodiazepines Screen,Urine Negative Normal Negative [facility] Comment on above: Performed By: #### E ODALIS, MG, CMP, CBC #### [address] Cannabinoid Screen,Urine Negative Normal Negative [facility] Comment on above: Result Comment: Thes e are unconfirmed results and should not be used for legal purposes. Drug Cut-Off Concentration: AMPH 1000 ng/mL JANELL 200 ng/mL JAMES 200 ng/mL COCM 300 ng/mL OP 300 ng/mL PCP 25 ng/mL THC 20 ng/mL PERFORMED BY: [place] [address] PATHOLOGIST DIRECTOR OF GLOBAL TALENT LEE CARDOSO M.D. Performed By: #### E ODALIS, MG, CMP, CBC #### [address] Cocaine Screen,Urine Positive High Negative [facility] Comment on above: Performed By: #### E ODALIS, MG, CMP, CBC #### [address] Opiate Screen,Urine Negative Normal Negative [facility] Comment on above: Performed By: #### E ODALIS, MG, CMP, CBC #### [address] Phencyclidine Screen,Urine Negative Normal Negative [facility] Comment on above: Performed By: #### E ODALIS, MG, CMP, CBC #### [address] ECG 12 lead ECGon 03-17-2023 ECG 12 lead ECG [facility] [place] [address] [place] [address] Electrocardiograph Report Signed Patient: Lyle Bailey MR#: [id number] : 1990 Acct:[id number] Age/Sex: 33 / F ADM Date: 03/17/23 Loc: ER Room: Type: [facility] ER Attending Dr: Ordering Provider: Delvis Benz DO Date of Service: 03/17/2306/04/848 ECG/ECG 12 lead ECG: Alcohol Copies to: Test Reason : Blood Pressure : 163/105 mmHG Vent. Rate : 069 BPM Atrial Rate : 069 BPM P-R Int : 152 ms QRS Dur : 082 ms QT Int : 392 ms P-R-T Axes : 074 085 070 degrees QTc Int : 420 ms Sinus rhythm with marked sinus arrhythmia Otherwise normal ECG When compared with ECG of 12-MAR-2023 15:46, No significant change was found Confirmed by DELVIS BENZ DO ([id number]) on 03/17/2023 4:22:17 PM Referred By: Electronically Signed By:DELVIS BENZ DO Transcribed By: MUS Signed By Delvis Benz DO 03/17 1622 Normal [facility] Erythrocyte distribution wid th [Ratio] by Automated countOrdered By: Delvis Benz on 03-17-2023 Erythrocyte distribution width (RBC) [Ratio] 13.3 % Normal 11.9-15.3 [facility] [place] Comment on above: Performed By: #### E ODALIS, MG, CMP, CBC #### [facility] [address] [place] [id number] [place] Erythrocytes [#/volume] in B lood by Automated countOrdered By: Delvis Benz on 03-17-2023 RBC (Bld) [#/Vol] 4.24 10*6/uL Normal 3.60-5.00 [facility] Comment on above: Performed By: #### E ODALIS, MG, CMP, CBC #### [facility] [address] [place] [id number] [place] Glucose [Mass/volume] in Ser um or PlasmaOrdered By: Delvis Benz on 03-17-2023 Glucose [Mass/Vol] 88 mg/dL Normal 70-100 [facility] Comment on above: ADA recommended refe rence rangeRandom Glucose Reference Range is dependent on time and content of last meal. Glucose of more than 200 mg/dL in a nonstressed, ambulatory subject supports the diagnosis of Diabetes Mellitus. Result Comment: [place] om Glucose Reference Range is dependent on time and content of last meal. Glucose of more than 200 mg/dL in a nonstressed, ambulatory subject supports the diagnosis of Diabetes Mellitus. ADA recommended reference range Performed By: #### E ODALIS, MG, CMP, CBC #### [address] HCG ( test) IA.rapi d Ql (U)Ordered By: Delvis Benz on 03-17-2023 HCG ( test) Ql (U) Negative [facility] HCG,Urineon 03-17-2023 Beta HCG ( test) Ql (U) Negative Normal [facility] Comment on above: Order Comment: Name Collection Type:: Clean-Voided Midstream Result Comment: PERF ORMED BY: [place] [address] PATHOLOGIST DIRECTOR OF GLOBAL TALENT LEE CARDOSO M.D. Performed By: #### E ODALIS, MG, CMP, CBC #### [address] Hematocrit [Volume Fraction] of Blood by Automated countOrdered By: Delvis Benz on 03-17-2023 Hematocrit (Bld) [Volume fraction] 40.7 % Normal 34.0-46.4 [facility] Comment on above: Performed By: #### E ODALIS, MG, CMP, CBC #### [address] Hemoglobin [Mass/volume] in BloodOrdered By: Delvis Benz on 03-17-2023 Hemoglobin (Bld) [Mass/Vol] 14.2 g/dL Normal 11.8-15.4 [facility] Comment on above: Performed By: #### E ODALIS, MG, CMP, CBC #### [address] INR in Platelet poor plasma by Coagulation assayOrdered By: Delvis Benz on 03-17-2023 INR Coag (PPP) [Relative time] 1.0 {INR} Normal [facility] Comment on above: INR Therapeutic Rang e A) Pre- and Peroperative OAT started two weeks before surgery. NOT HIP SURGERY: 1.5 - 2.5 HIP SURGERY: 2 - 3B) Primary and secondary prevention of venous THROMBOSIS: 2 - 3C) Active venous thrombosis, pulmonary embolismand prevention of recurrent venous thrombosis: 2 - 3D) Prevention of arterial thromboembolismincluding patients with mechanical heart valves: 3 - 4.5 Result Comment: INR Therapeutic Range A) Pre- [...] with mechanical heart valves: 3 - 4.5 PERFORMED BY: [place] [address] PATHOLOGIST DIRECTOR OF GLOBAL TALENT LEE CARDOSO M.D. Performed By: #### E ODALIS, MG, CMP, CBC #### [facility] [address] [place] [address] Ketones Auto test strip (U) [Mass/Vol]Ordered By: Delvis Benz on 03-17-2023 Ketones (U) [Mass/Vol] Negative Negative [facility] Laboratory - UrinalysisOrder ed By: Delvis Benz on 03-17-2023 Hyaline casts LM Ql (Urine sed) 0-8 [LPF] 0-8 [facility] Leukocytes [#/volume] correc jose for nucleated erythrocytes in Blood by Automated counOrdered By: Delvis Benz on 03-17-2023 WBC corrected for nucl RBC Auto (Bld) [#/Vol] 7.2 10*3/uL 3.8-11.6 [facility] Leukocytes [#/volume] in Blo od by Automated countOrdered By: Delvis Benz on 03-17-2023 WBC (Bld) [#/Vol] 7.2 10*3/uL Normal 3.8-11.6 [facility] Comment on above: Performed By: #### E ODALIS, MG, CMP, CBC #### [facility] [address] [place] [address] Lipase [Enzymatic activity/v olume] in Serum or PlasmaOrdered By: Delvis Benz on 03-17-2023 Lipase [Catalytic activity/Vol] 67.0 U/L Normal 11.0-82.0 [facility] Comment on above: Result Comment: PERF ORMED BY: [place] [address] PATHOLOGIST DIRECTOR OF GLOBAL TALENT LEE CARDOSO M.D. Performed By: #### E ODALIS, MG, CMP, CBC #### [facility] [address] [place] [address] Lymphocytes [#/volume] in Bl ood by Automated countOrdered By: Delvis Benz on 03-17-2023 Lymphocytes (Bld) [#/Vol] 3.6 10*3/uL Normal 1.00-4.8 [facility] Comment on above: Performed By: #### E ODALIS, MG, CMP, CBC #### [facility] [address] [place] [address] Lymphocytes/100 leukocytes i n Blood by Automated countOrdered By: Delvis Benz on 03-17-2023 Lymphocytes/100 WBC (Bld) 49.4 % Normal . [facility] Comment on above: Performed By: #### E ODALIS, MG, CMP, CBC #### [facility] [address] [place] [address] MCH [Entitic mass] by Automa jose countOrdered By: Delvis Benz on 03-17-2023 MCH (RBC) [Entitic mass] 33.5 pg Normal 24.7-34.3 [facility] Comment on above: Performed By: #### E ODALIS, MG, CMP, CBC #### [facility] [address] [place] [address] MCHC Auto (RBC) [Mass/Vol]Or dered By: Delvis Benz on 03-17-2023 MCHC (RBC) [Mass/Vol] 34.9 g/dL 32.0-35.0 [facility] MCV [Entitic volume] by Auto mated countOrdered By: Delvis Benz on 03-17-2023 MCV (RBC) [Entitic vol] 95.9 fL Normal 80-100 [facility] Comment on above: Performed By: #### E ODALIS, MG, CMP, CBC #### [facility] [address] [place] [address] [place] Monocyte distribution width [Entitic volume] in Blood by AutomatedOrdered By: Delvis Benz on 03-17-2023 Monocyte distribution width Auto (Bld) [Entitic vol] 18.74 % 0.00-20.00 [facility] [place] Neutrophils [#/volume] in Bl ood by Automated countOrdered By: Delvis Benz on 03-17-2023 Neutrophils (Bld) [#/Vol] 3.2 10*3/uL Normal 1.8-7.7 [facility] [place] Comment on above: Performed By: #### E ODALIS, MG, CMP, CBC #### [facility] [address] Nitrite Test strip Ql (U)Ord ered By: Delvis Benz on 03-17-2023 Nitrite Ql (U) Negative Negative [facility] [place] No Panel InformationOrdered By: Delvis Benz on 03-17-2023 Estimated GFR (CKD-EPI) > 60.0 mL/Min [facility] [place] Pharmacy Creatinine Clearance (Chem 119.57 [facility] [place] Nucleated erythrocytes [Pres ence] in Blood by Automated countOrdered By: Delvis Benz on 03-17-2023 Nucleated RBC Auto Ql (Bld) 0.1 /100{WBC} 0-0.5 [facility] [place] Opiates [Presence] in Urine by Screen methodOrdered By: Delvis Benz on 03-17-2023 Opiates Screen Ql (U) Negative Negative [facility] Phencyclidine Screen Ql (U)O rdered By: Delvis Benz on 03-17-2023 Phencyclidine Ql (U) Negative Negative [facility] Platelet mean volume [Entiti c volume] in Blood by Automated countOrdered By: Delvis Benz on 03-17-2023 Platelet mean volume (Bld) [Entitic vol] 8.5 fL Normal 6.3-10.7 [facility] [place] Comment on above: Performed By: #### E ODALIS, MG, CMP, CBC #### [facility] [address] [place] [address] [place] Platelets [#/volume] in Bloo d by Automated countOrdered By: Delvis Benz on 03-17-2023 Platelets (Bld) [#/Vol] 139 10*3/uL Low 150-450 [facility] [place] Comment on above: Performed By: #### E ODALIS, MG, CMP, CBC #### [facility] [address] Potassium [Moles/volume] in Serum or PlasmaOrdered By: Delvis Benz on 03-17-2023 Potassium [Moles/Vol] 3.8 mmol/L Normal 3.5-5.1 [facility] Comment on above: Performed By: #### E ODALIS, MG, CMP, CBC #### [facility] [address] Protein Auto test strip (U) [Mass/Vol]Ordered By: Delvis Benz on 03-17-2023 Protein (U) [Mass/Vol] Negative Negative [facility] [place] Protein [Mass/volume] in Ser um or PlasmaOrdered By: Delvis Benz on 03-17-2023 Protein [Mass/Vol] 7.5 g/dL Normal 6.4-8.9 [facility] Comment on above: Performed By: #### E ODALIS, MG, CMP, CBC #### [address] Prothrombin time (PT)Ordered By: Delvis Benz on 03-17-2023 PT Coag (PPP) [Time] 11.6 s Normal 9.0-12.9 [facility] Comment on above: A hematocrit value g reater than 55% may lead to inaccurate results in coagulation testing. Patients having hematocrit values >55% require a special collection tube for coagulation studies. Please contact the laboratory at [phone] for redraw instructions. Result Comment: A he matocrit value greater than 55% may lead to inaccurate results in coagulation testing. Patients having hematocrit values >55% require a special collection tube for coagulation studies. Please contact the laboratory at [phone] for redraw instructions. Performed By: #### E ODALIS, MG, CMP, CBC #### [address] Serum globulin measurement b y calculation (mass/volume)Ordered By: Delvis Benz on 03-17-2023 Globulin (S) [Mass/Vol] 3.3 g/dL [facility] Comment on above: Performed By: #### E ODALIS, MG, CMP, CBC #### [facility] [address] Serum or plasma albumin/glob ulin mass ratioOrdered By: Delvis Benz on 03-17-2023 Albumin/Globulin [Mass ratio] 1.3 {ratio} [facility] Comment on above: Performed By: #### E ODALIS, MG, CMP, CBC #### [facility] [address] Serum or plasma anion gap de terminationOrdered By: Delvis Benz on 03-17-2023 Anion gap [Moles/Vol] 11.5 mmol/L Normal 6.0-15.0 [facility] Comment on above: Performed By: #### E ODALIS MG, CMP, CBC #### [facility] [address] Sodium [Moles/volume] in Ser um or PlasmaOrdered By: Delvis Benz on 03-17-2023 Sodium [Moles/Vol] 137 mmol/L Normal 136-145 [facility] Comment on above: Performed By: #### E ODALIS, MG, CMP, CBC #### [facility] [address] Specific gravity Auto test s trip (U) [Rel density]Ordered By: Delvis Benz on 03-17-2023 Specific gravity (U) [Rel density] 1.029 1.001-1.030 [facility] [place] Squamous epithelial cells de tection in urine sediment by light microscopyOrdered By: Delvis Benz on 03-17-2023 Epithelial cells.squamous LM Ql (Urine sed) 3-4 [HPF] 0-2 [facility] [place] Urea nitrogen [Mass/volume] in Serum or PlasmaOrdered By: Delvis Benz on 03-17-2023 Urea nitrogen [Mass/Vol] 16 mg/dL Normal 7-25 [facility] [place] Comment on above: Performed By: #### E ODALIS, MG, CMP, CBC #### [facility] [address] [place] [address] [place] Urine Cultureon 03-17-2023 Bacteria identified Cx Nom (U) ORGANISM: Strep. agalactiae Grp B (O:B) [place] Count 10,000 PERFORMED BY: [place] [address] PATHOLOGIST DIRECTOR OF GLOBAL TALENT LEE CARDOSO M.D. Normal [facility] Comment on above: Performed By: #### E ODALIS, MG, CMP, CBC #### [facility] [address] [place] [address] Urine bacteria detection by automated methodOrdered By: Delvis Benz on 03-17-2023 Bacteria Auto Ql (U) None seen None Seen [facility] Urine clarity by refractomet ry automatedOrdered By: Delvis Benz on 03-17-2023 Clarity Refractometry automated (U) Clear Clear [facility] [place] Urine culture routineOrdered By: Delvis Benz on 03-17-2023 Bacteria identified Cx Nom (U) Strep. agalactiae Grp B [facility] Bacteria identified Cx Nom (U) Strep. agalactiae Grp B [facility] Urine glucose measurement by automated test strip (mass/volume)Ordered By: Delvis Benz on 03-17-2023 Glucose Auto test strip (U) [Mass/Vol] Normal mg/dL Normal [facility] [place] Urine hemoglobin detection b y automated test stripOrdered By: Delvis Benz on 03-17-2023 Hemoglobin Auto test strip Ql (U) Negative Negative [facility] [place] Urine leukocyte esterase det ection by automated test stripOrdered By: Delvis Benz on 03-17-2023 Leukocyte esterase Auto test strip Ql (U) 2+ Negative [facility] [place] Urine pH measurement by auto mated test stripOrdered By: Delvis Benz on 03-17-2023 pH (U) 6.0 [pH] Normal 5.0-9.0 [facility] [place] Comment on above: Order Comment: Name Collection Type:: Clean-Voided Midstream Performed By: #### E ODALIS, MG, CMP, CBC #### [facility] [address] [place] [address] Urobilinogen Auto test strip (U) [Mass/Vol]Ordered By: Delvis Benz on 03-17-2023 Urobilinogen (U) [Mass/Vol] Normal mg/dL Normal [facility] [place] Yeast detection in urine sed iment by light microscopyOrdered By: Delvis Benz on 03-17-2023 Yeast LM Ql (Urine sed) None seen [HPF] None Seen [facility] ECG 12 lead ECGon 03-12-2023 ECG 12 lead ECG [facility] [place] [address] Electrocardiograph Report Signed Patient: Lyle Bailey MR#: [id number] 429 : 1990 Acct:[id number] Age/Sex: 33 / F ADM Date: 03/12/23 Loc: ER Room: Type: DEP ER Attending Dr: Ordering Provider: Azra Farmer DO Date of Service: 03/12/23 ECG/ECG 12 lead ECG: Psychiatric Symptoms Copies to: Test Reason : Blood Pressure : 128/092 mmHG Vent. Rate : 074 BPM Atrial Rate : 074 BPM P-R Int : 164 ms QRS Dur : 084 ms QT Int : 370 ms P-R-T Axes : 070 090 058 degrees QTc Int : 410 ms Normal sinus rhythm Rightward axis Borderline ECG When compared with ECG of 04-MAR-2023 19:03, No significant change was found Confirmed by AZRA FARMER DO ([id number]) on 03/12/2023 8:23:49 PM Referred By: Electronically Signed By:AZRA FARMER DO Transcribed By: MUS Signed By Azra Farmer DO 2022 Normal [facility] ECG 12 lead ECGon 03-04-2023 ECG 12 lead ECG [facility] [place] [id number] Electrocardiograph Report Signed Patient: Lyle Bailey MR#: [id number] 429 : 1990 Acct:[id number] Age/Sex: 33 / F ADM Date: 03/04/23 Loc: ER Room: Type: DEP ER Attending Dr: Ordering Provider: Azra Farmer DO Date of Service: 03/04/23 ECG/ECG 12 lead ECG: Chest Pain Copies to: Test Reason : Blood Pressure : 135/097 mmHG Vent. Rate : 087 BPM Atrial Rate : 087 BPM P-R Int : 148 ms QRS Dur : 082 ms QT Int : 368 ms P-R-T Axes : 074 084 049 degrees QTc Int : 442 ms Normal sinus rhythm Normal ECG When compared with ECG of 25-JAN-2023 01:31, No significant change was found Confirmed by PHIL ALVAREZ MD ([id number]) on 03/07/2023 10:37:48 AM Referred By: Electronically Signed By:PHIL ALVAREZ MD Transcribed By: MUS Signed By Phil Alvarez MD 0 03/07/23 1037 Normal [facility] ED Note-Physicianon 02-25-19 ED Note-Physician [id number] [id number] F Normal [facility] Alanine aminotransferase [En zymatic activity/volume] in Serum or PlasmaOrdered By: Samanta Castro on 01-25-2023 ALT [Catalytic activity/Vol] 118 U/L High 7-52 [facility] [place] Comment on above: Performed By: #### E ODALIS, MG, CMP, CBC #### [facility] [address] Albumin [Mass/volume] in Ser um or Plasma by Bromocresol green (BCG) dye binding methoOrdered By: Samanta Castro on 01-25-2023 Albumin BCG dye [Mass/Vol] 4.4 g/dL 3.5-5.7 [facility] [place] Alkaline phosphatase [Enzyma tic activity/volume] in Serum or PlasmaOrdered By: Samanta Castro on 01-25-2023 ALP [Catalytic activity/Vol] 75 U/L Normal 34-104 [facility] [place] Comment on above: Performed By: #### E ODALIS, MG, CMP, CBC #### [facility] [address] [place] [id number] [facility] Amphetamine Screen Ql (U)Ord ered By: Samanta Castro on 01-25-2023 Amphetamines Ql (U) Positive Negative [facility] Aspartate aminotransferase [ Enzymatic activity/volume] in Serum or PlasmaOrdered By: Samanta Castro on 01-25-2023 AST [Catalytic activity/Vol] 84 U/L High 13-39 [facility] [place] Comment on above: Performed By: #### E ODALIS, MG, CMP, CBC #### [facility] [address] [place] [address] Automated basophil %Ordered By: Samanta Castro on 01-25-2023 Basophils/100 WBC (Bld) 0.7 % Normal . [facility] [place] Comment on above: Performed By: #### E ODALIS, MG, CMP, CBC #### [address] Automated basophil countOrde red By: Samanta Castro on 01-25-2023 Basophils (Bld) [#/Vol] 0.1 10*3/uL Normal 0.0-0.2 [facility] Comment on above: Result Comment: PERF ORMED BY: [place] [address] PATHOLOGIST DIRECTOR OF GLOBAL TALENT LEE CARDOSO M.D. Performed By: #### E ODALIS, MG, CMP, CBC #### [address] Automated blood monocyte cou ntOrdered By: Samanta Castro on 01-25-2023 Monocytes (Bld) [#/Vol] 0.8 10*3/uL Normal 0.0-0.8 [facility] [place] Comment on above: Performed By: #### E ODALIS, MG, CMP, CBC #### [address] Automated eosinophil %Ordere d By: Samanta Castro on 01-25-2023 Eosinophils/100 WBC (Bld) 0.6 % Normal . [facility] Comment on above: Performed By: #### E ODALIS, MG, CMP, CBC #### [address] Automated eosinophil countOr dered By: Samanta Castro on 01-25-2023 Eosinophils (Bld) [#/Vol] 0.0 10*3/uL Normal 0.0-0.45 [facility] [place] Comment on above: Performed By: #### E ODALIS, MG, CMP, CBC #### [facility] [address] [place] [address] Automated erythrocytes count in urine sediment (number/area)Ordered By: Samanta Castro on 01-25-2023 RBC Auto (Urine sed) [#/Area] 0-1 [HPF] 0-4 [facility] Automated leukocytes count i n urine sediment (number/area)Ordered By: Samanta Castro on 01-25-2023 WBC Auto (Urine sed) [#/Area] 1-2 [HPF] 0-4 [facility] Automated monocyte %Ordered By: Samanta Castro on 01-25-2023 Monocytes/100 WBC (Bld) 10.2 % Normal . [facility] Comment on above: Performed By: #### E ODALIS, MG, CMP, CBC #### [facility] [address] [place] [address] Automated neutrophil %Ordere d By: Samanta Castro on 01-25-2023 Neutrophils/100 WBC (Bld) 52.7 % Normal . [facility] [place] Comment on above: Performed By: #### E ODALIS, MG, CMP, CBC #### [facility] [address] [place] [address] Automated urine color determ inationOrdered By: Samanta Castro on 01-25-2023 Color (U) Dark yellow Critically abnormal Yellow [facility] [place] Comment on above: Order Comment: Name Collection Type:: Clean-Voided Midstream Performed By: #### E ODALIS, MG, CMP, CBC #### [facility] [address] [place] [address] Barbiturates [Presence] in U rine by Screen methodOrdered By: Samanta Castro on 01-25-2023 Barbiturates Screen Ql (U) Positive Negative [facility] Benzodiazepines Screen Ql (U )Ordered By: Samanta Castro on 01-25-2023 Benzodiazepines Ql (U) Positive Negative [facility] Benzoylecgonine [Presence] i n Urine by Screen methodOrdered By: Samanta Castro on 01-25-2023 Benzoylecgonine Screen Ql (U) Positive Negative [facility] Bilirubin Test strip Ql (U)O rdered By: Samanta Castro on 01-25-2023 Bilirubin Ql (U) 2+ Negative [facility] Bilirubin.total [Mass/volume ] in Serum or PlasmaOrdered By: Samanta Castro on 01-25-2023 Bilirubin [Mass/Vol] 0.9 mg/dL Normal 0.3-1.0 [facility] Comment on above: Performed By: #### E ODALIS, MG, CMP, CBC #### [facility] [address] [place] [address] [place] Calcium [Mass/volume] in Ser um or PlasmaOrdered By: Samanta Castro on 01-25-2023 Calcium [Mass/Vol] 9.3 mg/dL Normal 8.6-10.3 [facility] Comment on above: Performed By: #### E ODALIS, MG, CMP, CBC #### [facility] [address] [place] [address] [place] Cannabinoids [Presence] in U rine by Screen methodOrdered By: Samanta Castro on 01-25-2023 Cannabinoids Screen Ql (U) Negative Negative [facility] Comment on above: These are unconfirme d results and should not be used for legal purposes. Drug Cut-Off Concentration: AMPH 1000 ng/mL JANELL 200 ng/mL JAMES 200 ng/mL COCM 300 ng/mL OP 300 ng/mL PCP 25 ng/mL THC 20 ng/mL Carbon dioxide, total [Moles /volume] in Serum or PlasmaOrdered By: Samanta Castro on 01-25-2023 CO2 [Moles/Vol] 24.8 mmol/L Normal 21.0-31.0 [facility] Comment on above: Performed By: #### E ODALIS, MG, CMP, CBC #### [facility] [address] [place] [id number] [place] Chloride [Moles/volume] in S marbella or PlasmaOrdered By: Samanta Castro on 01-25-2023 Chloride [Moles/Vol] 102 mmol/L Normal 98-107 [facility] Comment on above: Performed By: #### E ODALIS MG, CMP, CBC #### [facility] [address] [place] [address] Complete Blood Count Auto Di ffon 01-25-2023 Mean Corpuscular HGB Conc 34.9 g/dL Normal 32.0-35.0 [facility] Comment on above: Performed By: #### E ODALIS, MG, CMP, CBC #### [address] Monocytes/100 WBC (Bld) 19.94 % Normal 0.00-20.00 [facility] Comment on above: Performed By: #### E ODALIS, MG, CMP, CBC #### [facility] [address] [place] [address] NRBC% 0.1 /100{WBC} Normal 0-0.5 [facility] Comment on above: Performed By: #### E ODALIS, MG, CMP, CBC #### [address] Comprehensive Metabolic Pane mary beth 01-25-2023 Albumin [Mass/Vol] 4.4 g/dL Normal 3.5-5.7 [facility] Comment on above: Performed By: #### E ODALIS, MG, CMP, CBC #### [address] Creatinine Clr Calc Pharmacy 102.16 Normal [facility] Comment on above: Performed By: #### E ODALIS, MG, CMP, CBC #### [address] GFR/1.73 sq M.predicted MDRD (S/P/Bld) [Vol rate/Area] mL/min/{1.73_m2} Normal [facility] Comment on above: Performed By: #### E ODALIS, MG, CMP, CBC #### [address] Creatinine [Mass/volume] in Serum or PlasmaOrdered By: Samanta Castro on 01-25-2023 Creatinine [Mass/Vol] 0.71 mg/dL Normal 0.60-1.20 [facility] Comment on above: Performed By: #### E ODALIS, MG, CMP, CBC #### [facility] [address] Dipstick and Microscopicon 1 03-28-2022 Appearance (U) Clear Normal Clear [facility] Comment on above: Order Comment: Name Collection Type:: Clean-Voided Midstream Performed By: #### E ODALIS, MG, CMP, CBC #### [facility] [address] Bacteria,Urine None Seen Normal None Seen [facility] Comment on above: Order Comment: Name Collection Type:: Clean-Voided Midstream Performed By: #### E ODALIS, MG, CMP, CBC #### [address] Bilirubin,Urine 2+ High Negative [facility] Comment on above: Order Comment: Name Collection Type:: Clean-Voided Midstream Performed By: #### E ODALIS, MG, CMP, CBC #### [address] Glucose Ql (U) Normal Normal Normal [facility] Comment on above: Order Comment: Name Collection Type:: Clean-Voided Midstream Performed By: #### E ODALIS, MG, CMP, CBC #### [facility] [address] [place] [address] Hyaline Casts,Urine 9-19 High 0-[address] [facility] Comment on above: Order Comment: Name Collection Type:: Clean-Voided Midstream Performed By: #### E ODALIS, MG, CMP, CBC #### [facility] [address] [place] [address] Ketones Ql (U) Trace High Negative [facility] Comment on above: Order Comment: Name Collection Type:: Clean-Voided Midstream Performed By: #### E ODALIS, MG, CMP, CBC #### [facility] [address] [place] [address] Leukocyte esterase Test strip Ql (U) 1+ High Negative [facility] Comment on above: Order Comment: Name Collection Type:: Clean-Voided Midstream Performed By: #### E ODALIS, MG, CMP, CBC #### [place] [address] [place] Nitrite,Urine Positive High Negative [facility] Comment on above: Order Comment: Name Collection Type:: Clean-Voided Midstream Performed By: #### E ODALIS, MG, CMP, CBC #### [address] Occult Blood,Urine Negative Normal Negative [facility] Comment on above: Order Comment: Name Collection Type:: Clean-Voided Midstream Performed By: #### E ODALIS, MG, CMP, CBC #### [address] RBC LM.HPF (Urine sed) [#/Area] 0 /[HPF] Normal 0-4 [facility] Comment on above: Order Comment: Name Collection Type:: Clean-Voided Midstream Performed By: #### E ODALIS, MG, CMP, CBC #### [address] Specificy [place],Urine 1.042 High 1.001-1.030 [facility] Comment on above: Order Comment: Name Collection Type:: Clean-Voided Midstream Performed By: #### E ODALIS, MG, CMP, CBC #### [address] Squamous Epithelial Cell,Urine 3-4 High 0-2 [facility] Comment on above: Order Comment: Name Collection Type:: Clean-Voided Midstream Performed By: #### E ODALIS, MG, CMP, CBC #### [address] Urobilinogen,Urine Normal Normal Normal [facility] Comment on above: Order Comment: Name Collection Type:: Clean-Voided Midstream Performed By: #### E ODALIS, MG, CMP, CBC #### [address] WBC,Urine 1-2 Normal 0-4 [facility] Comment on above: Order Comment: Name Collection Type:: Clean-Voided Midstream Performed By: #### E ODALIS, MG, CMP, CBC #### [address] Drug Screen,Urineon 01-26-20 23 Amphetamine Screen,Urine Positive High Negative [facility] Comment on above: Performed By: #### E ODALIS, MG, CMP, CBC #### [address] Barbiturate Screen,Urine Positive High Negative [facility] Comment on above: Performed By: #### E ODALIS, MG, CMP, CBC #### [address] Benzodiazepines Screen,Urine Positive High Negative [facility] Comment on above: Performed By: #### E ODALIS, MG, CMP, CBC #### [address] Cannabinoid Screen,Urine Negative Normal Negative [facility] Comment on above: Result Comment: Thes e are unconfirmed results and should not be used for legal purposes. Drug Cut-Off Concentration: AMPH 1000 ng/mL JANELL 200 ng/mL JAMES 200 ng/mL COCM 300 ng/mL OP 300 ng/mL PCP 25 ng/mL THC 20 ng/mL PERFORMED BY: [place] [address] PATHOLOGIST DIRECTOR OF GLOBAL TALENT LEE CARDOSO M.D. Performed By: #### E ODALIS, MG, CMP, CBC #### [address] Cocaine Screen,Urine Positive High Negative [facility] Comment on above: Performed By: #### E ODALIS, MG, CMP, CBC #### [address] Opiate Screen,Urine Negative Normal Negative [facility] Comment on above: Performed By: #### E ODALIS, MG, CMP, CBC #### [address] Phencyclidine Screen,Urine Negative Normal Negative [facility] Comment on above: Performed By: #### E ODALIS, MG, CMP, CBC #### [facility] [address] [place] [id number] [facility] ECG 12 lead ECGon 01-25-2023 ECG 12 lead ECG [facility] [place] [address] [place] [address] Electrocardiograph Report Signed Patient: Llye Bailey MR#: [id number] 429 : 1990 Acct:[id number] Age/Sex: 33 / F ADM Date: 01/25/23 Loc: ER Room: Type: [facility] ER Attending Dr: Ordering Provider: Samanta [...] was found Confirmed by SAMANTA CASTRO MD ([id number]) on 01/25/2023 3:59:06 AM Referred By: Electronically Signed By:SAMANTA CASTRO MD Transcribed By: MUS Signed By Samanta Castro Jr, MD 0359 Normal [facility] Erythrocyte distribution wid th [Ratio] by Automated countOrdered By: Samanta Castro on 01-25-2023 Erythrocyte distribution width (RBC) [Ratio] 13.1 % Normal 11.9-15.3 [facility] [place] Comment on above: Performed By: #### E ODALIS, MG, CMP, CBC #### [facility] [address] [place] [id number] [place] Erythrocytes [#/volume] in B lood by Automated countOrdered By: Samanta Castro on 01-25-2023 RBC (Bld) [#/Vol] 3.88 10*6/uL Normal 3.60-5.00 [facility] Comment on above: Performed By: #### E ODALIS, MG, CMP, CBC #### [facility] [address] Ethanol [Mass/volume] in Ser um or PlasmaOrdered By: Samanta Castro on 01-25-2023 Ethanol [Mass/Vol] mg/dL Normal [facility] Comment on above: Performed By: #### E ODALIS, MG, CMP, CBC #### [facility] [address] Ethanol [Mass/Vol] TNP [facility] Comment on above: Test not performed Ethyl Alcohol Profileon 01-11 Percent Ethanol Not performed Normal [facility] Comment on above: Result Comment: PERF ORMED BY: [place] [address] PATHOLOGIST DIRECTOR OF GLOBAL TALENT LEE CARDOSO M.D. Performed By: #### E ODALIS, MG, CMP, CBC #### [facility] [address] Glucose [Mass/volume] in Ser um or PlasmaOrdered By: Samanta Castro on 01-25-2023 Glucose [Mass/Vol] 88 mg/dL Normal 70-100 [facility] Comment on above: ADA recommended refe rence rangeRandom Glucose Reference Range is dependent on time and content of last meal. Glucose of more than 200 mg/dL in a nonstressed, ambulatory subject supports the diagnosis of Diabetes Mellitus. Result Comment: [place] om Glucose Reference Range is dependent on time and content of last meal. Glucose of more than 200 mg/dL in a nonstressed, ambulatory subject supports the diagnosis of Diabetes Mellitus. ADA recommended reference range Performed By: #### E ODALIS, MG, CMP, CBC #### [facility] [address] HCG ( test) IA.rapi d Ql (U)Ordered By: Samanta Castro on 01-25-2023 HCG ( test) Ql (U) Negative [facility] HCG,Urineon 01-25-2023 Beta HCG ( test) Ql (U) Negative Normal [facility] Comment on above: Order Comment: Name Collection Type:: Clean-Voided Midstream Result Comment: PERF ORMED BY: [place] [address] PATHOLOGIST DIRECTOR OF GLOBAL TALENT LEE CARDOSO M.D. Performed By: #### E ODALIS, MG, CMP, CBC #### [facility] [address] Hematocrit [Volume Fraction] of Blood by Automated countOrdered By: Samanta Castro on 01-25-2023 Hematocrit (Bld) [Volume fraction] 38.3 % Normal 34.0-46.4 [facility] Comment on above: Performed By: #### E ODALIS, MG, CMP, CBC #### [facility] [address] [place] [address] Hemoglobin [Mass/volume] in BloodOrdered By: Samanta Castro on 01-25-2023 Hemoglobin (Bld) [Mass/Vol] 13.4 g/dL Normal 11.8-15.4 [facility] [place] Comment on above: Performed By: #### E ODALIS, MG, CMP, CBC #### [facility] [address] [place] [address] Ketones Auto test strip (U) [Mass/Vol]Ordered By: Samanta Castro on 01-25-2023 Ketones (U) [Mass/Vol] Trace Negative [facility] Laboratory - UrinalysisOrder ed By: Samanta Castro on 01-25-2023 Hyaline casts LM Ql (Urine sed) 9-19 [LPF] 0-8 [facility] Leukocytes [#/volume] correc jose for nucleated erythrocytes in Blood by Automated counOrdered By: Samanta Castro on 01-25-2023 WBC corrected for nucl RBC Auto (Bld) [#/Vol] 7.4 10*3/uL 3.8-11.6 [facility] Leukocytes [#/volume] in Blo od by Automated countOrdered By: Samanta Castro on 01-25-2023 WBC (Bld) [#/Vol] 7.4 10*3/uL Normal 3.8-11.6 [facility] Comment on above: Performed By: #### E ODALIS, MG, CMP, CBC #### [facility] [address] [place] [address] Lymphocytes [#/volume] in Bl ood by Automated countOrdered By: Samanta Castro on 01-25-2023 Lymphocytes (Bld) [#/Vol] 2.7 10*3/uL Normal 1.00-4.8 [facility] [place] Comment on above: Performed By: #### E ODALIS, MG, CMP, CBC #### [facility] [address] [place] [address] [place] Lymphocytes/100 leukocytes i n Blood by Automated countOrdered By: Samanta Castro on 01-25-2023 Lymphocytes/100 WBC (Bld) 35.8 % Normal . [facility] Comment on above: Performed By: #### E ODALIS, MG, CMP, CBC #### [address] MCH [Entitic mass] by Automa jose countOrdered By: Samanta Castro on 01-25-2023 MCH (RBC) [Entitic mass] 34.4 pg High 24.7-34.3 [facility] Comment on above: Performed By: #### E ODALIS, MG, CMP, CBC #### [address] MCHC Auto (RBC) [Mass/Vol]Or dered By: Samanta Castro on 01-25-2023 MCHC (RBC) [Mass/Vol] 34.9 g/dL 32.0-35.0 [facility] MCV [Entitic volume] by Auto mated countOrdered By: Samanta Castro on 01-25-2023 MCV (RBC) [Entitic vol] 98.7 fL Normal 80-100 [facility] Comment on above: Performed By: #### E ODALIS, MG, CMP, CBC #### [place] [address] [place] Magnesium [Mass/volume] in S marbella or PlasmaOrdered By: Samanta Castro on 01-25-2023 Magnesium [Mass/Vol] 1.9 mg/dL Normal 1.9-2.7 [facility] Comment on above: Result Comment: PERF ORMED BY: [place] [phone] PATHOLOGIST DIRECTOR OF GLOBAL TALENT LEE CARDOSO M.D. Performed By: #### E ODALIS, MG, CMP, CBC #### [facility] [address] [place] [address] Monocyte distribution width [Entitic volume] in Blood by AutomatedOrdered By: Samanta Castro on 01-25-2023 Monocyte distribution width Auto (Bld) [Entitic vol] 19.94 % 0.00-20.00 [facility] Neutrophils [#/volume] in Bl ood by Automated countOrdered By: Samanta Castro on 01-25-2023 Neutrophils (Bld) [#/Vol] 3.9 10*3/uL Normal 1.8-7.7 [facility] Comment on above: Performed By: #### E ODALIS, MG, CMP, CBC #### [facility] [address] [place] [address] Nitrite Test strip Ql (U)Ord ered By: Samanta Castro on 01-25-2023 Nitrite Ql (U) Positive Negative [facility] No Panel InformationOrdered By: Samanta Castro on 01-25-2023 Estimated GFR (CKD-EPI) > 60.0 mL/Min [facility] Pharmacy Creatinine Clearance (Chem 102.16 [facility] Nucleated erythrocytes [Pres ence] in Blood by Automated countOrdered By: Samanta Castro on 01-25-2023 Nucleated RBC Auto Ql (Bld) 0.1 /100{WBC} 0-0.5 [facility] Opiates [Presence] in Urine by Screen methodOrdered By: Samanta Castro on 01-25-2023 Opiates Screen Ql (U) Negative Negative [facility] Phencyclidine Screen Ql (U)O rdered By: Samanta Castro on 01-25-2023 Phencyclidine Ql (U) Negative Negative [facility] Platelet mean volume [Entiti c volume] in Blood by Automated countOrdered By: Samanta Castro on 01-25-2023 Platelet mean volume (Bld) [Entitic vol] 9.1 fL Normal 6.3-10.7 [facility] Comment on above: Performed By: #### E ODALIS, MG, CMP, CBC #### [facility] [address] [place] [address] Platelets [#/volume] in Bloo d by Automated countOrdered By: Samanta Castro on 01-25-2023 Platelets (Bld) [#/Vol] 124 10*3/uL Low 150-450 [facility] Comment on above: Performed By: #### E ODALIS, MG, CMP, CBC #### [address] Potassium [Moles/volume] in Serum or PlasmaOrdered By: Samanta Castro on 01-25-2023 Potassium [Moles/Vol] 3.4 mmol/L Low 3.5-5.1 [facility] Comment on above: Performed By: #### E ODALIS, MG, CMP, CBC #### [address] Protein [Mass/volume] in Ser um or PlasmaOrdered By: Samanta Castro on 01-25-2023 Protein [Mass/Vol] 7.8 g/dL Normal 6.4-8.9 [facility] Comment on above: Performed By: #### E ODALIS, MG, CMP, CBC #### [address] Quick Strepon 01-25-2023 Quick Strep Streptococcus pyogen es Ag [Presence] in Throat by Rapid immunoassay Negative for Group A Strep Antigen Note 1 NOTE 2 Results are those of a screening test. NOTE 3 If clinically indicated please order a culture. NOTE 4 NOTE 5 Reference range = Negative PERFORMED BY: [place] [address] PATHOLOGIST DIRECTOR OF GLOBAL TALENT LEE CRADOSO M.D. Normal [facility] Comment on above: Performed By: #### C MP, LIPASE, CBC #### [address] [place] [address] [place] Serum globulin measurement b y calculation (mass/volume)Ordered By: Samanta Castro on 01-25-2023 Globulin (S) [Mass/Vol] 3.4 g/dL Normal [facility] Comment on above: Performed By: #### E ODALIS, MG, CMP, CBC #### [facility] [address] [place] [address] Serum or plasma albumin/glob ulin mass ratioOrdered By: Samanta Castro on 01-25-2023 Albumin/Globulin [Mass ratio] 1.3 {ratio} [facility] Comment on above: Performed By: #### E ODALIS, MG, CMP, CBC #### [address] Serum or plasma anion gap de terminationOrdered By: Samanta Csatro on 01-25-2023 Anion gap [Moles/Vol] 12.6 mmol/L Normal 6.0-15.0 [facility] Comment on above: Performed By: #### E ODALIS, MG, CMP, CBC #### [address] Sodium [Moles/volume] in Ser um or PlasmaOrdered By: Samanta Castro on 01-25-2023 Sodium [Moles/Vol] 136 mmol/L Normal 136-145 [facility] Comment on above: Performed By: #### E ODALIS, MG, CMP, CBC #### [facility] [address] [place] [address] Specific gravity Auto test s trip (U) [Rel density]Ordered By: Samanta Castro on 01-25-2023 Specific gravity (U) [Rel density] 1.042 1.001-1.030 [facility] Squamous epithelial cells de tection in urine sediment by light microscopyOrdered By: Samanta Castro on 01-25-2023 Epithelial cells.squamous LM Ql (Urine sed) 3-4 [HPF] 0-2 [facility] Streptococcus pyogenes antig en detectionOrdered By: Samanta Castro on 01-25-2023 S. pyogenes Ag Ql (Unsp spec) [facility] Urea nitrogen [Mass/volume] in Serum or PlasmaOrdered By: Samanta Castro on 01-25-2023 Urea nitrogen [Mass/Vol] 13 mg/dL Normal 7-25 [facility] Comment on above: Performed By: #### E ODALIS, MG, CMP, CBC #### [facility] [address] [place] [address] [place] Urine Cultureon 01-25-2023 Bacteria identified Cx Nom (U) ORGANISM: Strep agalactiae - (group b) (O:STRAGA) [place] Count 15,000 PERFORMED BY: [place] [address] PATHOLOGIST DIRECTOR OF GLOBAL TALENT LEE CARDOSO M.D. Normal [facility] Comment on above: Performed By: #### E ODALIS, MG, CMP, CBC #### [facility] [address] Urine bacteria detection by automated methodOrdered By: Samanta Castro on 01-25-2023 Bacteria Auto Ql (U) None seen None Seen [facility] Urine clarity by refractomet ry automatedOrdered By: Samanta Castro on 01-25-2023 Clarity Refractometry automated (U) Clear Clear [facility] Urine culture routineOrdered By: Samanta Castro on 01-25-2023 Bacteria identified Cx Nom (U) Strep agalactiae - (group b) [facility] Urine glucose measurement by automated test strip (mass/volume)Ordered By: Samanta Castro on 01-25-2023 Glucose Auto test strip (U) [Mass/Vol] Normal mg/dL Normal [facility] Urine hemoglobin detection b y automated test stripOrdered By: Samanta Castro on 01-25-2023 Hemoglobin Auto test strip Ql (U) Negative Negative [facility] Urine leukocyte esterase det ection by automated test stripOrdered By: Samanta Castro on 01-25-2023 Leukocyte esterase Auto test strip Ql (U) 1+ Negative [facility] Urine pH measurement by auto mated test stripOrdered By: Samanta Castro on 01-25-2023 pH (U) 5.5 [pH] Normal 5.0-9.0 [facility] Comment on above: Order Comment: Name Collection Type:: Clean-Voided Midstream Performed By: #### E ODALIS, MG, CMP, CBC #### [facility] [address] Urine protein measurement by automated test strip (mass/volume)Ordered By: Samanta Castro on 01-25-2023 Protein (U) [Mass/Vol] 30 mg/dL High Negative [facility] Comment on above: Order Comment: Name Collection Type:: Clean-Voided Midstream Performed By: #### E ODALIS, MG, CMP, CBC #### [facility] [address] Urobilinogen Auto test strip (U) [Mass/Vol]Ordered By: Samanta Castro on 01-25-2023 Urobilinogen (U) [Mass/Vol] Normal mg/dL Normal [facility] ED Note-Physicianon 01-22-20 ED Note-Physician [id number] F Normal [facility] Alanine aminotransferase [En zymatic activity/volume] in Serum or PlasmaOrdered By: Pavel Yao on 01-19-2023 ALT [Catalytic activity/Vol] 142 U/L High 7-52 [facility] Comment on above: Performed By: #### C MP, LIPASE, CBC #### [address] Albumin [Mass/volume] in Ser um or Plasma by Bromocresol green (BCG) dye binding methoOrdered By: Pavel Yao on 01-19-2023 Albumin BCG dye [Mass/Vol] 4.4 g/dL 3.5-5.7 [facility] Alkaline phosphatase [Enzyma tic activity/volume] in Serum or PlasmaOrdered By: Pavel Yao on 01-19-2023 ALP [Catalytic activity/Vol] 87 U/L Normal 34-104 [facility] Comment on above: Performed By: #### C MP, LIPASE, CBC #### [facility] [address] Aspartate aminotransferase [ Enzymatic activity/volume] in Serum or PlasmaOrdered By: Pavel Yao on 01-19-2023 AST [Catalytic activity/Vol] 220 U/L High 13-39 [facility] Comment on above: Performed By: #### C MP, LIPASE, CBC #### [address] Automated basophil %Ordered By: Pavel Yao on 01-19-2023 Basophils/100 WBC (Bld) 1.0 % Normal . [facility] Comment on above: Performed By: #### C MP, LIPASE, CBC #### [address] Automated basophil countOrde red By: Pavel Yao on 01-19-2023 Basophils (Bld) [#/Vol] 0.1 10*3/uL Normal 0.0-0.2 [facility] Comment on above: Result Comment: PERF ORMED BY: [place] [address] PATHOLOGIST DIRECTOR OF GLOBAL TALENT LEE CARDOSO M.D. Performed By: #### C MP, LIPASE, CBC #### [address] Automated blood monocyte cou ntOrdered By: Pavel Yao on 01-19-2023 Monocytes (Bld) [#/Vol] 0.3 10*3/uL Normal 0.0-0.8 [facility] Comment on above: Performed By: #### C MP, LIPASE, CBC #### [address] Automated eosinophil %Ordere d By: Pavel Yao on 01-19-2023 Eosinophils/100 WBC (Bld) 0.9 % Normal . [facility] Comment on above: Performed By: #### C MP, LIPASE, CBC #### [address] Automated eosinophil countOr dered By: Pavel Yao on 01-19-2023 Eosinophils (Bld) [#/Vol] 0.1 10*3/uL Normal 0.0-0.45 [facility] Comment on above: Performed By: #### C MP, LIPASE, CBC #### [address] Automated erythrocytes count in urine sediment (number/area)Ordered By: Pavel Yao on 01-19-2023 RBC Auto (Urine sed) [#/Area] 0-1 [HPF] 0-4 [facility] Automated leukocytes count i n urine sediment (number/area)Ordered By: Pavel Yao on 01-19-2023 WBC Auto (Urine sed) [#/Area] 0-1 [HPF] 0-4 [facility] Automated monocyte %Ordered By: Pavel Yao on 01-19-2023 Monocytes/100 WBC (Bld) 5.2 % Normal . [facility] Comment on above: Performed By: #### C MP, LIPASE, CBC #### [facility] [address] Automated neutrophil %Ordere d By: Pavel Yao on 01-19-2023 Neutrophils/100 WBC (Bld) 53.1 % Normal . [facility] Comment on above: Performed By: #### C MP, LIPASE, CBC #### [facility] [address] [place] [address] Automated urine color determ inationOrdered By: Pavel Yao on 01-19-2023 Color (U) Yellow Normal Yellow [facility] Comment on above: Order Comment: Name Collection Type:: Clean-Voided Midstream Performed By: #### C MP, LIPASE, CBC #### [address] Bilirubin Test strip Ql (U)O rdered By: Pavel aYo on 01-19-2023 Bilirubin Ql (U) Negative Negative [facility] Bilirubin.total [Mass/volume ] in Serum or PlasmaOrdered By: Pavel Yao on 01-19-2023 Bilirubin [Mass/Vol] 0.6 mg/dL Normal 0.3-1.0 [facility] Comment on above: Performed By: #### C MP, LIPASE, CBC #### [facility] [address] [place] [address] Calcium [Mass/volume] in Ser um or PlasmaOrdered By: Pavel Yao on 01-19-2023 Calcium [Mass/Vol] 8.9 mg/dL Normal 8.6-10.3 [facility] Comment on above: Performed By: #### C MP, LIPASE, CBC #### [address] Carbon dioxide, total [Moles /volume] in Serum or PlasmaOrdered By: Pavel Yao on 01-19-2023 CO2 [Moles/Vol] 23.2 mmol/L Normal 21.0-31.0 [facility] Comment on above: Performed By: #### C MP, LIPASE, CBC #### [address] Chloride [Moles/volume] in S marbella or PlasmaOrdered By: Pavel Yao on 01-19-2023 Chloride [Moles/Vol] 102 mmol/L Normal 98-107 [facility] Comment on above: Performed By: #### C MP, LIPASE, CBC #### [address] Complete Blood Count Auto Di ffon 01-19-2023 Mean Corpuscular HGB Conc 35.0 g/dL Normal 32.0-35.0 [facility] Comment on above: Performed By: #### C MP, LIPASE, CBC #### [place] [address] [place] Monocytes/100 WBC (Bld) 14.57 % Normal 0.00-20.00 [facility] Comment on above: Performed By: #### C MP, LIPASE, CBC #### [address] NRBC% 0.2 /100{WBC} Normal 0-0.5 [facility] Comment on above: Performed By: #### C MP, LIPASE, CBC #### [address] Comprehensive Metabolic Pane mary beth 01-19-2023 Albumin [Mass/Vol] 4.4 g/dL Normal 3.5-5.7 [facility] Comment on above: Performed By: #### C MP, LIPASE, CBC #### [place] [address] [place] Creatinine Clr Calc Pharmacy 128.34 Normal [facility] Comment on above: Performed By: #### C MP, LIPASE, CBC #### [place] [address] [place] GFR/1.73 sq M.predicted MDRD (S/P/Bld) [Vol rate/Area] mL/min/{1.73_m2} Normal [facility] Comment on above: Performed By: #### C MP, LIPASE, CBC #### [address] Creatinine [Mass/volume] in Serum or PlasmaOrdered By: Pavel Yao on 01-19-2023 Creatinine [Mass/Vol] 0.60 mg/dL Normal 0.60-1.20 [facility] Comment on above: Performed By: #### C MP, LIPASE, CBC #### [place] [address] [place] Dipstick and Microscopicon 1 03-22-2022 Appearance (U) Clear Normal Clear [facility] Comment on above: Order Comment: Name Collection Type:: Clean-Voided Midstream Performed By: #### C MP, LIPASE, CBC #### [place] [address] [place] Bacteria,Urine 1+ High None Seen [facility] Comment on above: Order Comment: Name Collection Type:: Clean-Voided Midstream Performed By: #### C MP, LIPASE, CBC #### [place] [address] [place] Bilirubin,Urine Negative Normal Negative [facility] Comment on above: Order Comment: Name Collection Type:: Clean-Voided Midstream Performed By: #### C MP, LIPASE, CBC #### [place] [address] [place] Glucose Ql (U) Normal Normal Normal [facility] Comment on above: Order Comment: Name Collection Type:: Clean-Voided Midstream Performed By: #### C MP, LIPASE, CBC #### [place] [address] [place] Hyaline Casts,Urine 0-8 Normal 0-8 [facility] Comment on above: Order Comment: Name Collection Type:: Clean-Voided Midstream Performed By: #### C MP, LIPASE, CBC #### [address] Ketones Ql (U) Negative Normal Negative [facility] Comment on above: Order Comment: Name Collection Type:: Clean-Voided Midstream Performed By: #### C MP, LIPASE, CBC #### [address] Leukocyte esterase Test strip Ql (U) Negative Normal Negative [facility] Comment on above: Order Comment: Name Collection Type:: Clean-Voided Midstream Performed By: #### C MP, LIPASE, CBC #### [place] [address] [place] Nitrite,Urine Negative Normal Negative [facility] Comment on above: Order Comment: Name Collection Type:: Clean-Voided Midstream Performed By: #### C MP, LIPASE, CBC #### [place] [address] [place] Occult Blood,Urine Negative Normal Negative [facility] Comment on above: Order Comment: Name Collection Type:: Clean-Voided Midstream Performed By: #### C MP, LIPASE, CBC #### [place] [address] [place] Protein,Urine Trace High Negative [facility] Comment on above: Order Comment: Name Collection Type:: Clean-Voided Midstream Performed By: #### C MP, LIPASE, CBC #### [place] [address] [place] RBC LM.HPF (Urine sed) [#/Area] 0 /[HPF] Normal 0-4 [facility] Comment on above: Order Comment: Name Collection Type:: Clean-Voided Midstream Performed By: #### C MP, LIPASE, CBC #### [place] [address] [place] Specificy [place],Urine 1.025 Normal 1.001-1.030 [facility] Comment on above: Order Comment: Name Collection Type:: Clean-Voided Midstream Performed By: #### C MP, LIPASE, CBC #### [address] Squamous Epithelial Cell,Urine 1-2 Normal 0-2 [facility] Comment on above: Order Comment: Name Collection Type:: Clean-Voided Midstream Performed By: #### C MP, LIPASE, CBC #### [address] Urobilinogen,Urine Normal Normal Normal [facility] Comment on above: Order Comment: Name Collection Type:: Clean-Voided Midstream Performed By: #### C MP, LIPASE, CBC #### [address] WBC LM.HPF (Urine sed) [#/Area] 0 /[HPF] Normal 0-4 [facility] Comment on above: Order Comment: Name Collection Type:: Clean-Voided Midstream Performed By: #### C MP, LIPASE, CBC #### [address] ECG 12 lead ECGon 01-19-2023 ECG 12 lead ECG [facility] [place] [address] [place] [address] Electrocardiograph Report Signed Patient: Lyle Bailey MR#: [id number] : 1990 Acct:[id number] Age/Sex: 33 / F ADM Date: 01/19/23 Loc: ER Room: Type: [facility] ER Attending Dr: Ordering Provider: Pavel [...] Rightward axis Confirmed by Pavel YAO DO ([id number]) on 01/19/2023 12:17:21 PM Referred By: Electronically Signed By:Pavel YAO DO Transcribed By: MUS Signed By Pavel Yao, 1 03/22/22 1217 Normal [facility] Erythrocyte distribution wid th [Ratio] by Automated countOrdered By: Pavel Yao on 01-19-2023 Erythrocyte distribution width (RBC) [Ratio] 13.2 % Normal 11.9-15.3 [facility] Comment on above: Performed By: #### C MP, LIPASE, CBC #### [address] Erythrocytes [#/volume] in B lood by Automated countOrdered By: Pavel Yao on 01-19-2023 RBC (Bld) [#/Vol] 4.13 10*6/uL Normal 3.60-5.00 [facility] Comment on above: Performed By: #### C MP, LIPASE, CBC #### [address] Glucose [Mass/volume] in Ser um or PlasmaOrdered By: Pavel Yao on 01-19-2023 Glucose [Mass/Vol] 82 mg/dL Normal 70-100 [facility] Comment on above: ADA recommended refe rence rangeRandom Glucose Reference Range is dependent on time and content of last meal. Glucose of more than 200 mg/dL in a nonstressed, ambulatory subject supports the diagnosis of Diabetes Mellitus. Result Comment: [place] om Glucose Reference Range is dependent on time and content of last meal. Glucose of more than 200 mg/dL in a nonstressed, ambulatory subject supports the diagnosis of Diabetes Mellitus. ADA recommended reference range Performed By: #### C MP, LIPASE, CBC #### [address] HCG ( test) IA.rapi d Ql (U)Ordered By: Pavel Yao on 01-19-2023 HCG ( test) Ql (U) Negative [facility] HCG,Urineon 01-19-2023 Beta HCG ( test) Ql (U) Negative Normal [facility] Comment on above: Order Comment: Name Collection Type:: Clean-Voided Midstream Result Comment: PERF ORMED BY: [address] [place] [address] PATHOLOGIST DIRECTOR OF GLOBAL TALENT LEE CARDOSO M.D. Performed By: #### C MP, LIPASE, CBC #### [address] Hematocrit [Volume Fraction] of Blood by Automated countOrdered By: Pavel Yao on 01-19-2023 Hematocrit (Bld) [Volume fraction] 40.5 % Normal 34.0-46.4 [facility] Comment on above: Performed By: #### C MP, LIPASE, CBC #### [address] Hemoglobin [Mass/volume] in BloodOrdered By: Pavel Yao on 01-19-2023 Hemoglobin (Bld) [Mass/Vol] 14.2 g/dL Normal 11.8-15.4 [facility] Comment on above: Performed By: #### C MP, LIPASE, CBC #### [address] Ketones Auto test strip (U) [Mass/Vol]Ordered By: Pavel Yao on 01-19-2023 Ketones (U) [Mass/Vol] Negative Negative [facility] Laboratory - UrinalysisOrder ed By: Pavel Yao on 01-19-2023 Hyaline casts LM Ql (Urine sed) 0-8 [LPF] 0-8 [facility] Leukocytes [#/volume] correc jose for nucleated erythrocytes in Blood by Automated counOrdered By: Pavel Yao on 01-19-2023 WBC corrected for nucl RBC Auto (Bld) [#/Vol] 6.2 10*3/uL 3.8-11.6 [facility] Leukocytes [#/volume] in Blo od by Automated countOrdered By: Pavel Yao on 01-19-2023 WBC (Bld) [#/Vol] 6.2 10*3/uL Normal 3.8-11.6 [facility] Comment on above: Performed By: #### C MP, LIPASE, CBC #### [address] Lipase [Enzymatic activity/v olume] in Serum or PlasmaOrdered By: Pavel Yao on 01-19-2023 Lipase [Catalytic activity/Vol] 53.0 U/L Normal 11.0-82.0 [facility] Comment on above: Result Comment: PERF ORMED BY: [place] [address] PATHOLOGIST DIRECTOR OF GLOBAL TALENT LEE CARDOSO M.D. Performed By: #### C MP, LIPASE, CBC #### [address] Lymphocytes [#/volume] in Bl ood by Automated countOrdered By: Pavel Yao on 01-19-2023 Lymphocytes (Bld) [#/Vol] 2.4 10*3/uL Normal 1.00-4.8 [facility] Comment on above: Performed By: #### C MP, LIPASE, CBC #### [address] Lymphocytes/100 leukocytes i n Blood by Automated countOrdered By: Pavel Yao on 01-19-2023 Lymphocytes/100 WBC (Bld) 39.8 % Normal . [facility] Comment on above: Performed By: #### C MP, LIPASE, CBC #### [facility] [address] [place] [address] MCH [Entitic mass] by Automa jose countOrdered By: Pavel Yao on 01-19-2023 MCH (RBC) [Entitic mass] 34.3 pg Normal 24.7-34.3 [facility] Comment on above: Performed By: #### C MP, LIPASE, CBC #### [address] MCHC Auto (RBC) [Mass/Vol]Or dered By: Pavel Yao on 01-19-2023 MCHC (RBC) [Mass/Vol] 35.0 g/dL 32.0-35.0 [facility] MCV [Entitic volume] by Auto mated countOrdered By: Pavel Yao on 01-19-2023 MCV (RBC) [Entitic vol] 97.9 fL Normal 80-100 [facility] Comment on above: Performed By: #### C MP, LIPASE, CBC #### [facility] [address] Monocyte distribution width [Entitic volume] in Blood by AutomatedOrdered By: Pavel Yao on 01-19-2023 Monocyte distribution width Auto (Bld) [Entitic vol] 14.57 % 0.00-20.00 [facility] Neutrophils [#/volume] in Bl ood by Automated countOrdered By: Pavel Yao on 01-19-2023 Neutrophils (Bld) [#/Vol] 3.3 10*3/uL Normal 1.8-7.7 [facility] Comment on above: Performed By: #### C MP, LIPASE, CBC #### [facility] [address] Nitrite Test strip Ql (U)Ord ered By: Pavel Yao on 01-19-2023 Nitrite Ql (U) Negative Negative [facility] No Panel InformationOrdered By: Pavel Yao on 01-19-2023 Estimated GFR (CKD-EPI) > 60.0 mL/Min [facility] Pharmacy Creatinine Clearance (Chem 128.34 [facility] Nucleated erythrocytes [Pres ence] in Blood by Automated countOrdered By: Pavel Yao on 01-19-2023 Nucleated RBC Auto Ql (Bld) 0.2 /100{WBC} 0-0.5 [facility] Platelet mean volume [Entiti c volume] in Blood by Automated countOrdered By: Pavel Yao on 01-19-2023 Platelet mean volume (Bld) [Entitic vol] 7.6 fL Normal 6.3-10.7 [facility] Comment on above: Performed By: #### C MP, LIPASE, CBC #### [facility] [address] [place] [address] [place] Platelets [#/volume] in Bloo d by Automated countOrdered By: Pavel Yao on 01-19-2023 Platelets (Bld) [#/Vol] 183 10*3/uL Normal 150-450 [facility] Comment on above: Performed By: #### C MP, LIPASE, CBC #### [facility] [address] [place] [address] [place] Potassium [Moles/volume] in Serum or PlasmaOrdered By: Pavel Yao on 01-19-2023 Potassium [Moles/Vol] 3.8 mmol/L Normal 3.5-5.1 [facility] Comment on above: Performed By: #### C MP, LIPASE, CBC #### [address] Protein Auto test strip (U) [Mass/Vol]Ordered By: Pavel Yao on 01-19-2023 Protein (U) [Mass/Vol] Trace mg/dL Negative [facility] Protein [Mass/volume] in Ser um or PlasmaOrdered By: Pavel Yao on 01-19-2023 Protein [Mass/Vol] 8.1 g/dL Normal 6.4-8.9 [facility] Comment on above: Performed By: #### C MP, LIPASE, CBC #### [address] Serum globulin measurement b y calculation (mass/volume)Ordered By: Pavel Yao on 01-19-2023 Globulin (S) [Mass/Vol] 3.7 g/dL [facility] Comment on above: Performed By: #### C MP, LIPASE, CBC #### [address] Serum or plasma albumin/glob ulin mass ratioOrdered By: Pavel Yao on 01-19-2023 Albumin/Globulin [Mass ratio] 1.2 {ratio} [facility] Comment on above: Performed By: #### C MP, LIPASE, CBC #### [address] Serum or plasma anion gap de terminationOrdered By: Pavel Yao on 01-19-2023 Anion gap [Moles/Vol] 15.6 mmol/L High 6.0-15.0 [facility] Comment on above: Performed By: #### C MP, LIPASE, CBC #### [address] Sodium [Moles/volume] in Ser um or PlasmaOrdered By: Pavel Yao on 01-19-2023 Sodium [Moles/Vol] 137 mmol/L Normal 136-145 [facility] Comment on above: Performed By: #### C MP, LIPASE, CBC #### [facility] [address] Specific gravity Auto test s trip (U) [Rel density]Ordered By: Pavel Yao on 01-19-2023 Specific gravity (U) [Rel density] 1.025 1.001-1.030 [facility] Squamous epithelial cells de tection in urine sediment by light microscopyOrdered By: Pavel Yao on 01-19-2023 Epithelial cells.squamous LM Ql (Urine sed) 1-2 [HPF] 0-2 [facility] Urea nitrogen [Mass/volume] in Serum or PlasmaOrdered By: Pavel Yao on 01-19-2023 Urea nitrogen [Mass/Vol] 13 mg/dL Normal 7-25 [facility] Comment on above: Performed By: #### C MP, LIPASE, CBC #### [facility] [address] Urine bacteria detection by automated methodOrdered By: Pavel Yao on 01-19-2023 Bacteria Auto Ql (U) 1+ None Seen [facility] Urine clarity by refractomet ry automatedOrdered By: Pavel Yao on 01-19-2023 Clarity Refractometry automated (U) Clear Clear [facility] Urine glucose measurement by automated test strip (mass/volume)Ordered By: Pavel Yao on 01-19-2023 Glucose Auto test strip (U) [Mass/Vol] Normal mg/dL Normal [facility] Urine hemoglobin detection b y automated test stripOrdered By: Pavel Yao on 01-19-2023 Hemoglobin Auto test strip Ql (U) Negative Negative [facility] Urine leukocyte esterase det ection by automated test stripOrdered By: Pavel Yao on 01-19-2023 Leukocyte esterase Auto test strip Ql (U) Negative Negative [facility] Urine pH measurement by auto mated test stripOrdered By: Pavel Yao on 01-19-2023 pH (U) 6.5 [pH] Normal 5.0-9.0 [facility] Comment on above: Order Comment: Name Collection Type:: Clean-Voided Midstream Performed By: #### C MP, LIPASE, CBC #### [facility] [address] Urobilinogen Auto test strip (U) [Mass/Vol]Ordered By: Pavel Yao on 01-19-2023 Urobilinogen (U) [Mass/Vol] Normal mg/dL Normal [facility] Neurology Forms- [employer] Neurology Forms- Text [id number]#1.00TIF F Normal [facility] EEGon 01-12-2023 EEG Normal [facility] Comment on above: Result Comment: Elec tronically Signed By: Francisco Cruz MD\.br\Date and Time Signed: 01/12/23 08:10 EST Discharge Instructionson Discharge Instructions [id number]#1.00TI FF [facility] Insurance Correspondence Off iceon 01-08-2023 Insurance Correspondence Office [id number]#1.00T IFF [facility] Progress Note-Nurseon 2022 Progress Note-Nurse [id number]#1.00TI FF [facility] Consent for Treatmenton 12-13 Consent for Treatment [id number]#1.00TI FF [facility] Discharge Instructionson Discharge Instructions [id number]#1.00TI FF [facility] ED Clinical Summaryon 2022 ED Clinical Summary Normal [facility] ED Note-Physicianon 01-08-20 ED Note-Physician Normal [facility] Comment on above: Result Comment: Elec tronically Signed By: Darren Guzman DO.br\Date and Time Signed: 01/07/23 00:23 EST ED Patient Education Noteon 01-07-2023 ED Patient Education Note Normal [facility] ED Patient Summaryon 023 ED Patient Summary Normal [facility] Insurance Correspondence Off iceon 01-07-2023 Insurance Correspondence Office [id number]#1.00TI FF Normal [facility] Pre-Arrival Noteon Pre-Arrival Note Normal [facility] BMPon 01-06-2023 Anion gap [Moles/Vol] 11 mmol/L Normal 6-16 [facility] Comment on above: Performed By: #### 2 053212, 91002942, 78331224, 6378200, 8527901, 7062140 ####[facility] [address] [place] [address] Calcium [Mass/Vol] 8.6 mg/dL Low 8.9-11.1 [facility] Comment on above: Performed By: #### 2 102085, 73200057, 46878343, 7786044, 1453042, 6624007 ####[facility] [address] [place] [address] Chloride [Moles/Vol] 106 mmol/L Normal 101-111 [facility] Comment on above: Performed By: #### 2 747481, 52985544, 88991264, 1148032, 9036562, 6426637 ####[facility] [address] [place] [address] CO2 [Moles/Vol] 21 mmol/L Normal 21-31 [facility] Comment on above: Performed By: #### 2 953265, 38465306, 20827903, 5471927, 9274916, 4598497 ####[facility] [address] [place] [address] Creatinine [Mass/Vol] 0.5 mg/dL Normal 0.5-1.3 [facility] Comment on above: Performed By: #### 2 140276, 38664451, 17614672, 1355807, 4141742, 7806292 ####[facility] [address] [place] [address] Glucose [Mass/Vol] 87 mg/dL Normal 55-199 [facility] Comment on above: Result Comment: If t his glucose result represents a fasting glucose, interpretation should refer to the following reference range: 55-99 mg/dL Performed By: #### 2 755304, 15301879, 00595191, 2180107, 1911643, 7420110 ####[facility] [address] [place] [address] Potassium [Moles/Vol] 4.2 mmol/L Normal 3.5-5.3 [facility] Comment on above: Performed By: #### 2 869432, 01571534, 05549995, 8682553, 1197642, 5977957 ####[facility] [address] [place] [address] Sodium [Moles/Vol] 134 mmol/L Low 135-145 [facility] Comment on above: Performed By: #### 2 048091, 39919610, 19807706, 8105943, 8844543, 9676674 ####[facility] [address] [place] [address] Urea nitrogen [Mass/Vol] 11 mg/dL Normal 5-21 [facility] Comment on above: Performed By: #### 2 044171, 47264906, 94150272, 7997391, 6871327, 5798164 ####[facility] [address] [place] [address] Urea nitrogen/Creatinine [Mass ratio] 22 No Units High 10-20 [facility] Comment on above: Performed By: #### 2 547328, 04021826, 67327582, 8910947, 0066976, 0483675 ####[facility] [address] [place] [address] CHEMISTRYOrdered By: SYSTEM SYSTEM on 01-06-2023 Albumin [Mass/Vol] 3.5 g/dL Normal 3.3 - 5.0 gm/dL [facility] [place] [place] Remisol Albumin/Globulin [Mass ratio] 1.0 {ratio} Low [...] ng/dL Normal 0.58 - 1. 64 ng/dL [facility] Remisol GFR/1.73 sq M.predicted among non-blacks MDRD (S/P/Bld) [Vol rate/Area] 129 mL/min/1.73 m2 Normal >=59mL/min/1 .73 m2 [facility] [place] [place] Chem S Comment on above: Interpretive Data: C hronic kidney disease could be indicated at eGFR's of less than 60 mL/min/1.73m2. Kidney failure is indicated at less than 15 mL/min/1.73m2. Globulin (S) [Mass/Vol] 3.6 g/dL Normal 1.4 - 4.0 gm/dL [facility] Remisol Glucose [Mass/Vol] 87 mg/dL Normal 55 - 199 mg/dL [facility] [place] Remisol Comment on above: Interpretive Data: I f this glucose result represents a fasting glucose, interpretation should refer to the following reference range: 55-99 mg/dL Potassium [Moles/Vol] 4.2 mmol/L Normal 3.5 - 5.3 mmol/L [facility] Protein [Mass/Vol] 7.1 g/dL Normal 6.0 - 7.8 gm/dL [facility] Sodium [Moles/Vol] 134 mmol/L Low 135 - 145 mmol/L [facility] TSH Qn 5.89 m[IU]/L High 0.34 - 5.60 mcIU/mL [facility] Urea nitrogen [Mass/Vol] 11 mg/dL Normal 5 - 21 mg/dL [facility] Urea nitrogen/Creatinine [Mass ratio] 22 mg/mg High 10 - 20 [facility] Free T4on 01-06-2023 Free T4 [Mass/Vol] 0.80 ng/dL Normal 0.58-1.64 [facility] Comment on above: Order Comment: Free T4 added by Discern Rule due to a TSH result of <0.34 or >5.60. Performed By: #### 2 875986, 86391968, 50836291, 7855198, 0997553, 8676404 ####[facility] [address] [place] [address] HEMATOLOGYOrdered By: Marlyn Villa on 01-06-2023 Platelets (Bld) [#/Vol] 116.0 E9/L Low 150.0 - 500.0 E9/L [facility] [place] [place] HemeAutoSS Hep Func Panelon 01-06-2023 Albumin [Mass/Vol] 3.5 g/dL Normal 3.3-5.0 [facility] Comment on above: Performed By: #### 2 040040, 82719259, 61533812, 2376897, 5470246, 1438670 ####[facility] [address] [place] [address] Albumin/Globulin (S) [Mass conc ratio] 1.0 Low 1.1-2.2 [facility] Comment on above: Performed By: #### 2 567448, 90736108, 21983287, 6335685, 2987354, 1612267 ####[address] [place] [address] ALP [Catalytic activity/Vol] 86 Int._Unit/L Normal 21-98 [facility] Comment on above: Performed By: #### 2 816922, 46577898, 90286420, 7218596, 7823470, 2211977 ####[address] [address] ALT No additional P-5'-P [Catalytic activity/Vol] 142 Int._Unit/L High 6-46 [facility] Comment on above: Performed By: #### 2 891946, 27040691, 54115162, 9642922, 5519959, 8876201 ####[address] [address] AST [Catalytic activity/Vol] 239 Int._Unit/L High 5-43 [facility] Comment on above: Performed By: #### 2 287183, 37742517, 23478685, 4004035, 0148832, 2812561 ####[address] [address] Bilirubin [Mass/Vol] 1.1 mg/dL Normal 0.0-1.1 [facility] Comment on above: Performed By: #### 2 698132, 39013737, 51915194, 3503898, 1187557, 9859270 ####[address] [address] Bilirubin.direct [Mass/Vol] 0.3 mg/dL Normal 0.1-0.4 [facility] Comment on above: Performed By: #### 2 042963, 98959553, 53011209, 3085287, 6125159, 3416796 ####[address] [place] [address] Bilirubin.indirect [Mass or moles/Vol] 0.8 mg/dL Normal 0.1-0.9 [facility] Comment on above: Performed By: #### 2 974215, 66270032, 56669477, 6698834, 5276204, 1639193 ####[facility] [address] [place] [address] Globulin (S) [Mass/Vol] 3.6 g/dL Normal 1.4-4.0 [facility] Comment on above: Performed By: #### 2 398264, 03349877, 33450328, 0396488, 5734895, 3000874 ####[facility] [address] [place] [address] Protein [Mass/Vol] 7.1 g/dL Normal 6.0-7.8 [facility] Comment on above: Performed By: #### 2 052964, 22627457, 20389809, 3738157, 8077990, 4628971 ####[facility] [address] [place] [address] Inpatient Clinical Summaryon 01-06-2023 Inpatient Clinical Summary Normal [facility] Inpatient Patient Summaryon 01-06-2023 Inpatient Patient Summary Normal [facility] Inpatient Patient Summary Normal [facility] Interdisciplinary Note - Alonso e Manageron 01-06-2023 Interdisciplinary Note - Insulator Technician Per nursing and hospitalist. Mother will be transporting pt home at 230 today. LVM for mom. Pt denied rehab services. CRM spoke to mother and pt, mother is agreeable to taking pt into her custody and care. Ari RN witnessed conversation. Normal [facility] Comment on above: Result Comment: Elec tronically Signed By: Marlyn Echols.br\Date and Time Signed: 01/06/23 14:35 EST Monitor Recordon 01-06-2023 Monitor Record [id number]#1.00TI FF Normal [facility] Monitor Record [id number]#[id number] FF Normal [facility] Platelet Counton 01-06-2023 Platelets (Bld) [#/Vol] 116.0 E9/L Low 150.0-500.0 [facility] Comment on above: Performed By: #### 2 931936, 14281908, 50623513, 3894247, 3868073, 4773872 ####[facility] [address] [place] [address] Progress Note-Nurseon 2022 Progress Note-Nurse Normal [facility] Progress Note-Nurse Normal [facility] Progress Note-Physicianon Progress Note-Physician Normal [facility] Comment on above: Result Comment: Elec tronically Signed By: Awa BAUTISTA, Bekah Chatman\.br\Date and Time Signed: 01/06/23 07:04 EST\.br\Electronically Co-Signed By: Francisco Cruz MD\.br\Date and Time Co-Signed: 01/06/23 09:26 EST TSH With T4fr Reflexon 01-06 TSH Qn 5.89 m[IU]/L High 0.34-5.60 [facility] Comment on above: Performed By: #### 2 925521, 95590331, 09928500, 5523597, 0306601, 7942582 ####[facility] [address] [place] [address] eGFRon 01-06-2023 GFR/1.73 sq M.predicted among non-blacks MDRD (S/P/Bld) [Vol rate/Area] 129 mL/min/1.73 m2 Normal >=59 [facility] Comment on above: Order Comment: Order added by Discern Expert. Result Comment: Branch Logistics Supervisor justin kidney disease could be indicated at eGFR's of less than 60 mL/min/1.73m2. Kidney failure is indicated at less than 15 mL/min/1.73m2. Performed By: #### 2 591374, 96525096, 23297603, 0372840, 1942809, 9981239 ####[facility] [address] [place] [address] Auto Diffon 2023 Basophils/100 WBC (Bld) 1.3 % Normal 0.0-2.0 [facility] Comment on above: Order Comment: Order Added by Discern Expert. Performed By: #### 2 907173, 8627854, 43031444, 2166715, 3693546, 9609351, 2379818 ####[facility] [address] [place] [address] Basophils/Leukocytes Auto (Bld) [Pure # fraction] 0.1 E9/L Normal 0.0-0.2 [facility] Comment on above: Order Comment: Order Added by Discern Expert. Performed By: #### 2 858895, 2291496, 24884136, 2047525, 3168683, 1028745, 6478531 ####[address] [place] [address] Eosinophils/100 WBC (Bld) 1.8 % Normal 0.0-8.0 [facility] Comment on above: Order Comment: Order Added by Radha Expert. Performed By: #### 2 595305, 9040741, 10020752, 4923207, 6643899, 8396417, 7700974 ####[facility] [address] [place] [address] Eosinophils/Leukocyte s Auto (Bld) [Pure # fraction] 0.1 E9/L Normal 0.0-0.5 [facility] Comment on above: Order Comment: Order Added by Radha Expert. Performed By: #### 2 241381, 6914586, 06614647, 0773691, 9420774, 7796031, 7236383 ####[address] [place] [address] Lymphocytes/100 WBC (Bld) 46.8 % Normal 14.0-50.0 [facility] Comment on above: Order Comment: Order Added by Radha Expert. Performed By: #### 2 539187, 4708467, 57869002, 9250688, 1903359, 7282533, 1130998 ####[facility] [address] [place] [address] Lymphocytes/Leukocyte s Auto (Bld) [Pure # fraction] 2.6 E9/L Normal 1.0-4.0 [facility] Comment on above: Order Comment: Order Added by Discern Expert. Performed By: #### 2 549525, 0924025, 83245972, 2639554, 8897631, 2644641, 8961691 ####[facility] [address] [place] [address] Monocytes/100 WBC (Bld) 5.4 % Normal 4.0-14.0 [facility] Comment on above: Order Comment: Order Added by Discern Expert. Performed By: #### 2 276834, 6819478, 10083015, 2569383, 8640129, 5630289, 4534108 ####[address] [place] [address] Monocytes/Leukocytes Auto (Bld) [Pure # fraction] 0.3 E9/L Normal 0.2-1.0 [facility] Comment on above: Order Comment: Order Added by Radha Expert. Performed By: #### 2 120475, 2329592, 13937263, 8183279, 7157718, 3506761, 2146108 ####[address] [place] [address] Neutrophils/100 WBC (Bld) 44.7 % Normal 36.0-75.0 [facility] Comment on above: Order Comment: Order Added by Discern Expert. Performed By: #### 2 723219, 6675029, 65868054, 8688136, 1806346, 7331933, 8384568 ####[address] [place] [address] Neutrophils/Leukocyte s Auto (Bld) [Pure # fraction] 2.5 E9/L Normal 2.0-7.5 [facility] Comment on above: Order Comment: Order Added by Discern Expert. Performed By: #### 2 587979, 4114815, 50231592, 5493034, 6572640, 1417751, 2074657 ####[address] [place] [address] Basophils/100 WBC (Bld) 0.7 % Normal 0.0-2.0 [facility] Comment on above: Order Comment: Order Added by Discern Expert. Performed By: #### 2 772935, 01307765, 4617971, 3213374, 2767049, 25969348, 45480996 ####[facility] [address] [place] [address] Basophils/Leukocytes Auto (Bld) [Pure # fraction] 0.1 E9/L Normal 0.0-0.2 [facility] Comment on above: Order Comment: Order Added by Discern Expert. Performed By: #### 2 920046, 26925602, 0754490, 8321042, 0967163, 49644961, 83751437 ####[address] [place] [address] Eosinophils/100 WBC (Bld) 1.2 % Normal 0.0-8.0 [facility] Comment on above: Order Comment: Order Added by Discern Expert. Performed By: #### 2 994225, 11895816, 4700720, 2774498, 8705480, 06206867, 72112172 ####[address] [address] Eosinophils/Leukocyte s Auto (Bld) [Pure # fraction] 0.1 E9/L Normal 0.0-0.5 [facility] Comment on above: Order Comment: Order Added by Discern Expert. Performed By: #### 2 275018, 52965365, 1763304, 1559114, 0891057, 70680814, 86651979 ####[address] [place] [address] Lymphocytes/100 WBC (Bld) 40.2 % Normal 14.0-50.0 [facility] Comment on above: Order Comment: Order Added by Discern Expert. Performed By: #### 2 221079, 74001085, 4352417, 9861646, 6505841, 65836590, 31416145 ####[address] [place] [address] Lymphocytes/Leukocyte s Auto (Bld) [Pure # fraction] 4.1 E9/L High 1.0-4.0 [facility] Comment on above: Order Comment: Order Added by Discern Expert. Performed By: #### 2 866191, 04102902, 9751860, 7536225, 2315816, 84274179, 58765358 ####[address] [place] [address] Monocytes/100 WBC (Bld) 4.6 % Normal 4.0-14.0 [facility] Comment on above: Order Comment: Order Added by Radha Expert. Performed By: #### 2 223584, 11064693, 2862795, 6403195, 7414943, 94808765, 25008874 ####[address] [address] Monocytes/Leukocytes Auto (Bld) [Pure # fraction] 0.5 E9/L Normal 0.2-1.0 [facility] Comment on above: Order Comment: Order Added by Discern Expert. Performed By: #### 2 110811, 60846010, 4383038, 2227124, 0007680, 59187918, 29373478 ####[address] [address] Neutrophils/100 WBC (Bld) 53.3 % Normal 36.0-75.0 [facility] Comment on above: Order Comment: Order Added by Radha Expert. Performed By: #### 2 700701, 76322888, 1616470, 5989061, 3911062, 01472983, 99770330 ####[address] [place] [address] Neutrophils/Leukocyte s Auto (Bld) [Pure # fraction] 5.5 E9/L Normal 2.0-7.5 [facility] Comment on above: Order Comment: Order Added by Radha Expert. Performed By: #### 2 997510, 89193613, 8453294, 9564539, 3579871, 43756987, 03635911 ####[address] [place] [address] B hCG Qualon 2023 Beta HCG ( test) Ql Negative Normal [facility] Comment on above: Performed By: #### 2 4904215 ####[facility] [address] [place] [address] BMPon 2023 Creatinine [Mass/Vol] 0.7 mg/dL Normal 0.5-1.3 [facility] Comment on above: Performed By: #### 2 828312, 1324034, 58664401, 4672165, 3871485, 9801243, 9737913 ####[facility] [address] [place] [address] Urea nitrogen [Mass/Vol] 15 mg/dL Normal 5-21 [facility] Comment on above: Performed By: #### 2 487685, 8653331, 51086794, 9520355, 1844498, 1036389, 3066712 ####[facility] [address] [place] [address] Urea nitrogen/Creatinine [Mass ratio] 21 No Units High 10-20 [facility] Comment on above: Performed By: #### 2 735487, 1520024, 21592267, 2998699, 1419362, 4343867, 9966032 ####[facility] [address] [place] [address] Anion gap [Moles/Vol] 13 mmol/L Normal 6-16 [facility] Comment on above: Performed By: #### 2 695676, 0932806, 55040712, 9993940, 2041064, 3502478, 2935169 ####[facility] [address] [place] [address] Calcium [Mass/Vol] 8.3 mg/dL Low 8.9-11.1 [facility] Comment on above: Performed By: #### 2 747013, 3792716, 81223952, 2852848, 5977416, 1809523, 5957444 ####[facility] [address] [place] [address] Chloride [Moles/Vol] 107 mmol/L Normal 101-111 [facility] Comment on above: Performed By: #### 2 691722, 4567897, 87547282, 8416554, 1813610, 5415927, 6281740 ####[facility] [address] [place] [address] CO2 [Moles/Vol] 22 mmol/L Normal 21-31 [facility] Comment on above: Performed By: #### 2 049478, 5160396, 36097222, 8045188, 2115581, 8884471, 0154210 ####[facility] [address] [place] [address] Glucose [Mass/Vol] 93 mg/dL Normal 55-199 [facility] Comment on above: Result Comment: If t his glucose result represents a fasting glucose, interpretation should refer to the following reference range: 55-99 mg/dL Performed By: #### 2 014101, 7847152, 75882080, 7552346, 4737893, 6951791, 5046542 ####[facility] [address] [place] [address] Potassium [Moles/Vol] 3.8 mmol/L Normal 3.5-5.3 [facility] Comment on above: Performed By: #### 2 070681, 2508449, 03986644, 5619804, 7378915, 2779363, 7850153 ####[facility] [address] [place] [address] Sodium [Moles/Vol] 138 mmol/L Normal 135-145 [facility] Comment on above: Performed By: #### 2 148945, 8565720, 64297422, 5110682, 0885527, 8352676, 2668274 ####[facility] [address] [place] [address] Creatinine [Mass/Vol] 0.8 mg/dL Normal 0.5-1.3 [facility] Comment on above: Performed By: #### 2 326224, 75054354, 5335286, 0827679, 3744530, 42740842, 28368343 ####[facility] [address] [place] [address] Urea nitrogen [Mass/Vol] 13 mg/dL Normal 5-21 [facility] Comment on above: Performed By: #### 2 684475, 93868015, 7358420, 9912753, 1015011, 37532956, 74502730 ####[facility] [address] [place] [address] Urea nitrogen/Creatinine [Mass ratio] 16 No Units Normal 10-20 [facility] Comment on above: Performed By: #### 2 675514, 74044398, 7839871, 3194131, 2197637, 76033918, 87267038 ####[facility] [address] [place] [address] Anion gap [Moles/Vol] 13 mmol/L Normal 6-16 [facility] Comment on above: Performed By: #### 2 308968, 39252783, 4716981, 4952185, 8311935, 65467322, 25584899 ####[facility] [address] [place] [address] Calcium [Mass/Vol] 8.6 mg/dL Low 8.9-11.1 [facility] Comment on above: Performed By: #### 2 162520, 64800327, 8050922, 0890893, 0593481, 35077762, 77585113 ####[facility] [address] [place] [address] Chloride [Moles/Vol] 106 mmol/L Normal 101-111 [facility] Comment on above: Performed By: #### 2 573525, 54089704, 2433859, 7798987, 3820272, 83169019, 87645468 ####[facility] [address] [place] [address] CO2 [Moles/Vol] 23 mmol/L Normal 21-31 [facility] Comment on above: Performed By: #### 2 011303, 62696315, 2456031, 7194093, 9671113, 66153840, 68587370 ####[facility] [address] [place] [address] Glucose [Mass/Vol] 91 mg/dL Normal 55-199 [facility] Comment on above: Result Comment: If t his glucose result represents a fasting glucose, interpretation should refer to the following reference range: 55-99 mg/dL Performed By: #### 2 067705, 23770392, 7994960, 1808000, 8452282, 76349458, 00307433 ####[facility] [address] [place] [address] Potassium [Moles/Vol] 3.8 mmol/L Normal 3.5-5.3 [facility] Comment on above: Performed By: #### 2 185193, 70193418, 6636818, 7725735, 7531005, 45700681, 34206771 ####[facility] [address] [place] [address] Sodium [Moles/Vol] 138 mmol/L Normal 135-145 [facility] Comment on above: Performed By: #### 2 436836, 93301762, 4333883, 7426040, 2614563, 33202056, 93581033 ####[facility] [address] [place] [address] CBC w/ Auto Diffon 3 Erythrocyte distribution width (RBC) [Ratio] 12.8 % Normal 10.9-14.2 [facility] Comment on above: Performed By: #### 2 988169, 4984864, 92989474, 3273841, 4134211, 3918807, 7356495 ####[facility] [address] [place] [address] Hematocrit (Bld) [Volume fraction] 39.6 % Normal 34.0-46.0 [facility] Comment on above: Performed By: #### 2 273423, 1172061, 45065375, 4677012, 8594834, 1822239, 2721483 ####[address] [place] [address] Hemoglobin (Bld) [Mass/Vol] 13.7 g/dL Normal 12.0-16.0 [facility] Comment on above: Performed By: #### 2 879770, 4410871, 48048190, 1875241, 2717368, 7733425, 0509395 ####[address] [place] [address] MCH (RBC) [Entitic mass] 33.8 pg Normal 27.0-34.0 [facility] Comment on above: Performed By: #### 2 015593, 0047452, 86635261, 7481718, 0981690, 7111754, 8915003 ####[address] MCHC (RBC) [Mass/Vol] 34.5 g/dL Normal 31.4-36.0 [facility] Comment on above: Performed By: #### 2 494754, 9410597, 91468846, 5031809, 2543475, 0471165, 9253241 ####[address] MCV (RBC) [Entitic vol] 98.0 fL Normal 80.0-100.0 [facility] Comment on above: Performed By: #### 2 651651, 9240869, 39103014, 7475763, 7839677, 6644882, 4863356 ####[address] [place] [address] Platelet mean volume (Bld) [Entitic vol] 8.8 fL Normal 6.4-10.8 [facility] Comment on above: Performed By: #### 2 331904, 0107578, 57592911, 6816378, 2477185, 8507350, 0354145 ####[address] Platelets (Bld) [#/Vol] 124.0 E9/L Low 150.0-500.0 [facility] Comment on above: Performed By: #### 2 234681, 4729815, 39741649, 7357079, 5230927, 8432344, 7284476 ####[facility] [address] [place] [address] RBC (Bld) [#/Vol] 4.0 E12/L Low 4.3-5.9 [facility] Comment on above: Performed By: #### 2 005388, 1473498, 15968919, 4542633, 6000031, 9413728, 4947255 ####[facility] [address] [place] [address] WBC corrected for nucl RBC Auto (Bld) [#/Vol] 5.6 E9/L Normal 4.0-11.0 [facility] Comment on above: Performed By: #### 2 441134, 6590898, 94203597, 3316855, 8965652, 2561192, 0538109 ####[address] [place] [address] Erythrocyte distribution width (RBC) [Ratio] 13.3 % Normal 10.9-14.2 [facility] Comment on above: Performed By: #### 2 772699, 77807387, 9753218, 4502717, 3336053, 57298191, 98846334 ####[address] [place] [address] Hematocrit (Bld) [Volume fraction] 44.7 % Normal 34.0-46.0 [facility] Comment on above: Performed By: #### 2 357664, 98528931, 8535201, 8173158, 3835614, 10113376, 30408505 ####[facility] [address] [place] [address] Hemoglobin (Bld) [Mass/Vol] 15.6 g/dL Normal 12.0-16.0 [facility] Comment on above: Performed By: #### 2 728814, 57828193, 1922675, 6005009, 6467518, 95257898, 84582384 ####[facility] [address] [place] [address] MCH (RBC) [Entitic mass] 34.3 pg High 27.0-34.0 [facility] Comment on above: Performed By: #### 2 811180, 69105888, 6617605, 2307902, 3333066, 89937388, 98290159 ####[facility] [address] [place] [address] MCHC (RBC) [Mass/Vol] 34.9 g/dL Normal 31.4-36.0 [facility] Comment on above: Performed By: #### 2 229107, 88278632, 1841448, 9427645, 3788548, 94684912, 70606342 ####[facility] [address] [place] [address] MCV (RBC) [Entitic vol] 98.4 fL Normal 80.0-100.0 [facility] Comment on above: Performed By: #### 2 120714, 35075444, 8739020, 0970324, 1909672, 81735150, 63557020 ####[facility] [address] [place] [address] Platelet mean volume (Bld) [Entitic vol] 9.1 fL Normal 6.4-10.8 [facility] Comment on above: Performed By: #### 2 300782, 38142523, 9304845, 1470855, 8674925, 62623401, 81427827 ####[facility] [address] [place] [address] Platelets (Bld) [#/Vol] 197.0 E9/L Normal 150.0-500.0 [facility] Comment on above: Performed By: #### 2 688876, 21902505, 3973950, 9754911, 0234909, 82109064, 47466686 ####[facility] [address] [place] [address] RBC (Bld) [#/Vol] 4.5 E12/L Normal 4.3-5.9 [facility] Comment on above: Performed By: #### 2 484972, 96793908, 8495241, 7909299, 5097876, 36246752, 11478249 ####[facility] [address] [place] [address] WBC corrected for nucl RBC Auto (Bld) [#/Vol] 10.3 E9/L Normal 4.0-11.0 [facility] Comment on above: Performed By: #### 2 777111, 73350117, 1492302, 6346484, 8709473, 97634421, 80644284 ####[facility] [address] [place] [address] CHEMISTRYOrdered By: SYSTEM SYSTEM on 2023 Ethanol [...] - 31 mmol/L [facility] Creatinine [Mass/Vol] 0.7 mg/dL Normal [...] 119 mL/min/1.73 m2 Normal >=59mL/min/1 .73 m2 [facility] [place] Chem S Comment on above: Interpretive Data: [...] mg/dL Normal 1.9 - 4 .6 mg/dL [facility] Potassium [Moles/Vol] 3.8 mmol/L Normal 3.5 - 5.3 mmol/L [facility] Protein [Mass/Vol] 6.7 g/dL Normal 6.0 - 7.8 gm/dL [facility] Sodium [Moles/Vol] 138 mmol/L Normal 135 - 145 mmol/L [facility] Urea nitrogen [Mass/Vol] 15 mg/dL Normal 5 - 21 mg/dL [facility] Urea nitrogen/Creatinine [Mass ratio] 21 mg/mg [...] alternate method\Critical Result UD_BARB:POS Called to RODOLFO PRERY AT ER by MANUEL CONTRERAS And Read Back For Confirmation at: 2023 03:46:52 Interpretive Data: N egative Cutoff: <200 ng/mL Benzodiazepines Ql (U) Positive 1, 2 *ABN* (01/05/23 3:02 AM) Invalid Interpretation Code Negative [facility] Comment on above: Result Comment: Crit ical Result verified by repeat analysis\No confirmation requested by Physican\Unconfirmed by alternate method\Critical Result UD_BENZ:POS Called to RODOLFO PERRY AT ER by MANUEL CONTRERAS And Read [...] repeat analysis\Critical Result S_ETOH:266.0 Called to RODOLFO PERRY AT by MANUEL CONTRERAS And Read Back [...] 0.8 mg/dL Normal 0.5 - 1.3 mg/dL [facility] GFR/1.73 sq M.predicted among non-blacks MDRD (S/P/Bld) [Vol rate/Area] 101 mL/min/1.73 m2 Normal >=59mL/min/1 .73 m2 [facility] [place] Chem S Comment on above: Interpretive Data: C hronic kidney disease could be indicated at eGFR's of less than 60 mL/min/1.73m2. Kidney failure is indicated at less than 15 mL/min/1.73m2. Globulin (S) [Mass/Vol] 4.1 g/dL High 1.4 - 4.0 gm/dL [facility] Glucose [Mass/Vol] 91 mg/dL Normal 55 - 199 mg/dL [facility] Comment on above: Interpretive Data: I f this glucose result represents a fasting glucose, interpretation should refer to the following reference range: 55-99 mg/dL Potassium [Moles/Vol] 3.8 mmol/L Normal 3.5 - 5.3 mmol/L [facility] Protein [Mass/Vol] 7.9 g/dL High 6.0 - 7.8 gm/dL [facility] Sodium [Moles/Vol] 138 mmol/L Normal 135 - 145 mmol/L [facility] Troponin I.cardiac [Mass/Vol] 5.50 pg/mL Low 10.10 - 27.10 pg/mL [facility] Comment on above: Interpretive Data: T he 95% CI (Confidence Interval) PPV (Positive Predictive Value) for myocardial infarction in females is 38 pg/mL, in males 51 pg/mL. The results should be used in conjunction with clinical conditions of myocardial infarction. (Access High Sensitivity Troponin I Instructions For Use, Yv[employer] Pep, September 2017) Urea nitrogen [Mass/Vol] 13 mg/dL Normal 5 - 21 mg/dL [facility] Urea nitrogen/Creatinine [Mass ratio] 16 mg/mg Normal 10 - 20 [facility] COAGULATIONOrdered By: Vivek Contreras on 2023 aPTT Coag (PPP) [Time] 35.2 s Normal 25.1 - 36.5 second(s) [facility] [place] Auto Coag Comment on above: Interpretive Data: [...] the same coagulation reagent and instrumentation as [facility] [place]. Currently there are no coagulation studies available worldwide for children to 14 days, and no normal ranges. Heparin therapeutic range (represented by Anti-Factor Xa activity of 0.2 - 0.4 U/mL) corresponds to PTT of 56.6 - 109.0 sec. INR Coag (PPP) [Relative time] 1.2 {INR} Invalid Interpretation Code [facility] [place] Auto Coag Comment on above: Interpretive Data: I NR results are specifically intended to assess patients stabilized on long-term Anticoagulation therapy suggested INR s Less Intensive Anticoagulation 2.0 3.0 Conventional Range 3.0 4.5 PT Coag (PPP) [Time] 13.6 s High 9.4 - 1 2.5 second(s) [facility] [place] Auto Coag Comment on above: Interpretive Data: [...] the same coagulation reagent and instrumentation as [facility] [place]. Currently there are no coagulation studies available worldwide for children to 14 days, and no normal ranges. CT Head or Brain w/o Contras ton 2023 CT Head or Brain w/o Contrast Normal [facility] CT Spine Cervical w/o Contra ston 2023 CT Spine Cervical w/o Contrast Normal [facility] Consent for Treatmenton 12-13 Consent for Treatment [id number] Normal [facility] Consultation Noteon 01-06-20 Consultation Note Normal [facility] Comment on above: Result Comment: Elec tronically Signed By: Sekou Mi LPN, Lisa M\.br\Date and Time Signed: 01/05/23 07:45 EST\.br\Electronically Co-Signed By: Francisco Cruz MD\.br\Date and Time Co-Signed: 01/05/23 09:14 EST ED Clinical Summaryon 2022 ED [facility]20 ED Note-Physician Normal [facility] Comment on above: Result Comment: Elec tronically Signed By: Kerry Linton DO\.br\Date and Time Signed: 01/05/23 04:23 EST ED Patient Education Noteon 2023 ED Patient Education Note Normal [facility] ED Patient Summaryon 023 ED Patient Summary Normal [facility] Ethanolon 2023 Ethanol [Mass/Vol] mg/dL Normal <=7 [facility] Comment on above: Performed By: #### 2 479614 ####[facility] [address] [place] [address] Ethanol [Mass/Vol] 83 mg/dL Abnormal <=7 [facility] Comment on above: Order Comment: Unsuc cessful attempts to collect labs, other phlebotomists notified. HH Result Comment: Crit ical Result S_ETOH:83.0 Called to CARLOS MORSE AT ICU by ERNESTO REYNAGA And Read Back For Confirmation at: 2023 10:13:51\Critical Result verified by repeat analysis Performed By: #### 2 654387 ####[facility] [address] [place] [address] Ethanol [Mass/Vol] 266 mg/dL Abnormal <=7 [facility] Comment on above: Result Comment: Crit ical Result verified by repeat analysis\Critical Result S_ETOH:266.0 Called to RODOLFO PERRY AT by MANUEL CONTERRAS And Read Back For Confirmation at: 2023 02:33:18 Performed By: #### 2 617987 ####[facility] [address] [place] [address] HEMATOLOGYOrdered By: SYSTEM SYSTEM on 2023 Basophils/100 [...] 5.6 E9/L Normal 4.0 - 11.0 E9/L [facility] HemeAutoSS HEMATOLOGYOrdered By: Arlene Contreras on 2023 Erythrocyte distribution width (RBC) [Ratio] 13.3 % Normal 10.9 - 14.2 % [facility] HemeAutoSS Hematocrit (Bld) [Volume fraction] 44.7 % Normal 34.0 - 46.0 % [facility] HemeAutoSS Hemoglobin (Bld) [Mass/Vol] 15.6 g/dL Normal 12.0 - 16.0 gm/dL [facility] HemeAutoSS MCH (RBC) [Entitic mass] 34.3 pg High 27.0 - 34.0 pg [facility] HemeAutoSS MCHC (RBC) [Mass/Vol] 34.9 g/dL Normal 31.4 - 36.0 gm/dL [facility] HemeAutoSS MCV (RBC) [Entitic vol] 98.4 fL Normal 80.0 - 100.0 fL [facility] HemeAutoSS Platelet mean volume (Bld) [Entitic vol] 9.1 fL Normal 6.4 - 10.8 fL [facility] HemeAutoSS Platelets (Bld) [#/Vol] 197.0 E9/L Normal 150.0 - 500.0 E9/L [facility] HemeAutoSS RBC (Bld) [#/Vol] 4.5 E12/L Normal 4.3 - 5.9 E12/L [facility] HemeAutoSS WBC corrected for nucl RBC Auto (Bld) [#/Vol] 10.3 E9/L Normal 4.0 - 11.0 E9/L [facility] HemeAutoSS Hep Func Panelon 2023 Albumin [Mass/Vol] 3.3 g/dL Normal 3.3-5.0 [facility] Comment on above: Performed By: #### 2 267197, 7929757, 10996725, 9139272, 5970180, 8756030, 3038293 ####[facility] [address] [place] [address] Albumin/Globulin (S) [Mass conc ratio] 1.0 Low 1.1-2.2 [facility] Comment on above: Performed By: #### 2 079329, 7036919, 63960236, 7813661, 9732547, 1813383, 5284974 ####[facility] [address] [place] [address] ALP [Catalytic activity/Vol] 86 Int._Unit/L Normal 21-98 [facility] Comment on above: Performed By: #### 2 088159, 0356743, 44588816, 6272373, 4357307, 3600598, 3300457 ####[facility] [address] [place] [address] ALT No additional P-5'-P [Catalytic activity/Vol] 145 Int._Unit/L High 6-46 [facility] Comment on above: Performed By: #### 2 451649, 4545895, 43191983, 3208867, 9003979, 5397458, 9640056 ####[facility] [address] [place] [address] AST [Catalytic activity/Vol] 298 Int._Unit/L High 5-43 [facility] Comment on above: Performed By: #### 2 041057, 3213684, 32202481, 7756545, 3747578, 6409036, 8784327 ####[facility] [address] [place] [address] Bilirubin [Mass/Vol] 0.4 mg/dL Normal 0.0-1.1 [facility] Comment on above: Performed By: #### 2 610180, 5357538, 23755971, 5733442, 3350297, 7829272, 4761353 ####[facility] [address] [place] [address] Bilirubin.direct [Mass/Vol] 0.2 mg/dL Normal 0.1-0.4 [facility] Comment on above: Performed By: #### 2 778801, 0384027, 42278296, 2105735, 7771896, 0018571, 3388448 ####[facility] [address] [place] [address] Bilirubin.indirect [Mass or moles/Vol] 0.2 mg/dL Normal 0.1-0.9 [facility] Comment on above: Performed By: #### 2 266703, 1648714, 24633604, 7425573, 4771460, 4330005, 1243488 ####[facility] [address] [place] [address] Globulin (S) [Mass/Vol] 3.4 g/dL Normal 1.4-4.0 [facility] Comment on above: Performed By: #### 2 460832, 9115704, 09284679, 2071739, 2870294, 4595562, 0161391 ####[place] [address] [place] [address] Protein [Mass/Vol] 6.7 g/dL Normal 6.0-7.8 [facility] Comment on above: Performed By: #### 2 886615, 1902867, 21541990, 0121493, 2955300, 8855455, 6527685 ####[place] [place] [address] Albumin [Mass/Vol] 3.8 g/dL Normal 3.3-5.0 [facility] Comment on above: Performed By: #### 2 294527, 27238289, 7299132, 8911934, 1114333, 01071661, 00126790 ####[place] [place] [address] Albumin/Globulin (S) [Mass conc ratio] 0.9 Low 1.1-2.2 [facility] Comment on above: Performed By: #### 2 733989, 25495689, 2558268, 0767159, 8389806, 68444724, 43209261 ####[place] [place] [address] ALP [Catalytic activity/Vol] 103 Int._Unit/L High 21-98 [facility] Comment on above: Performed By: #### 2 708127, 76278274, 8651336, 5443218, 1182329, 80551399, 99019493 ####[facility] [facility] [address] [place] [address] ALT No additional P-5'-P [Catalytic activity/Vol] 159 Int._Unit/L High 6-46 [facility] Comment on above: Performed By: #### 2 676616, 21021647, 2495466, 1564135, 4937947, 92719983, 01056015 ####[facility] [address] [place] [id number] AST [Catalytic activity/Vol] 337 Int._Unit/L [facility] 5-43 [facility] Comment on above: Performed By: #### 2 138202, 80963451, 9662190, 6740367, 8661324, 47833439, 54133733 ####[place] 9[address]2757 Bilirubin [Mass/Vol] 0.3 mg/dL Normal 0.0-1.1 [facility] Comment on above: Performed By: #### 2 875315, 52967345, 0782085, 7207888, 6916193, 59895944, 90297674 ####[facility] [address] [place] [address] Bilirubin.direct [Mass/Vol] 0.1 mg/dL Normal 0.1-0.4 [facility] Comment on above: Performed By: #### 2 109541, 81466317, 5260689, 2904154, 3093790, 94583830, 20341812 ####[place] [address] [place] [address] Bilirubin.indirect [Mass or moles/Vol] 0.2 mg/dL Normal 0.1-0.9 [facility] Comment on above: Performed By: #### 2 032034, 58185112, 5193905, 1898898, 8456586, 98960179, 01446465 ####[facility] [address] [place] [address] Globulin (S) [Mass/Vol] 4.1 g/dL High 1.4-4.0 [facility] Comment on above: Performed By: #### 2 467015, 84073392, 0325749, 6342681, 6126182, 48457173, 46351919 ####[facility] [address] [place] [address] Protein [Mass/Vol] 7.9 g/dL High 6.0-7.8 [facility] Comment on above: Performed By: #### 2 766578, 35516210, 7485767, 2545644, 9956806, 54626108, 59167206 ####[facility] [address] [place] [address] Interdisciplinary Note - Alonso e Manageron 2023 Interdisciplinary Note - Insulator Technician [facility] Comment on above: Result Comment: Elec tronically Signed By: Katy Wood\.br\Date and Time Signed: 01/05/23 14:50 EST Magnesiumon 2023 Magnesium [Mass/Vol] 1.4 mg/dL Normal 1.3-2.4 [facility] Comment on above: Performed By: #### 2 014874, 6326752, 60774678, 8421024, 4906644, 3180196, 5595845 ####[facility] [address] [place] [address] Monitor Recordon 2023 Monitor Record [id number]#1.00TI FF Normal [facility] Monitor Record [id number]#1.00TI FF Normal [facility] Monitor Record [id number]#1.00TI FF Normal [facility] Monitor Record [id number]#1.00TI FF Normal [facility] PT & PTTon 2023 aPTT Coag (PPP) [Time] 35.2 second(s) Normal 25.1-36.5 [facility] Comment on above: Result Comment: Para meter [...] the same coagulation reagent and instrumentation as [facility] [place]. Currently there are no coagulation studies available worldwide for children to 14 days, and no normal ranges. Heparin therapeutic range (represented by Anti-Factor Xa activity of 0.2 - 0.4 U/mL) corresponds to PTT of 56.6 - 109.0 sec. Performed By: #### 2 091615, 94656782, 1566428, 8963259, 1664429, 07382769, 98798846 ####[facility] [address] [place] [address] INR Coag (PPP) [Relative time] 1.2 {INR} Invalid Interpretation Code [facility] Comment on above: Result Comment: INR results are specifically intended to assess patients stabilized on long-term Anticoagulation therapy suggested INR?s ?Less Intensive Anticoagulation? 2.0 ? 3.0Conventional Range 3.0 ? 4.5 Performed By: #### 2 748131, 37632179, 8362899, 5193641, 6789540, 75008098, 92400592 ####[facility] [address] [place] [address] PT Coag (PPP) [Time] 13.6 second(s) High 9.4-12.5 [facility] Comment on above: Result Comment: 15 d [...] the same coagulation reagent and instrumentation as [facility] [place]. Currently there are no coagulation studies available worldwide for children to 14 days, and no normal ranges. Performed By: #### 2 114655, 01248169, 8490326, 8249514, 2141470, 78304826, 27018214 ####[facility] [address] [place] [address] Phosphoruson 2023 Phosphate [Mass/Vol] 2.7 mg/dL Normal 1.9-4.6 [facility] Comment on above: Performed By: #### 2 538110, 2261665, 93711336, 2702614, 3519062, 4550145, 9976407 ####[facility] [address] [place] [address] Pre-Arrival Noteon 3 Pre-Arrival Note Normal [facility] RAD - Preliminary Cat Scan R eporton 2023 RAD - Preliminary Cat Scan Report [id number]#1.00TIF F Normal [facility] SEROLOGYOrdered By: Alejandra Contreras on 2023 Beta HCG ( test) Ql Negative (01/05/23 1:58 AM) Normal [facility] [place] Man Sero Troponin 0 Hr.on 2023 Troponin I.cardiac [Mass/Vol] 5.50 pg/mL Low 10.10-27.10 [facility] Comment on above: Result Comment: The 95% CI (Confidence Interval) PPV (Positive Predictive Value) for myocardial infarction in females is 38 pg/mL, in males 51 pg/mL. The results should be used in conjunction with clinical conditions of myocardial infarction.(Access High Sensitivity Troponin I Instructions For Use, [employer], September 2017) Performed By: #### 2 690405, 02538661, 8076033, 4571238, 5489441, 35556936, 07020054 ####[facility] [address] [place] [address] U Drug Screenon 2023 Barbiturates Screen Ql (U) Positive Abnormal Negative [facility] Comment on above: Result Comment: Crit ical Result verified by repeat analysis\No confirmation requested by Physican\Unconfirmed by alternate method\Critical Result UD_BARB:POS Called to [facility] by MANUEL CONTRERAS And Read Back For Confirmation at: 2023 03:46:52Negative Cutoff: <200 ng/mL Performed By: #### 2 318819 ####[facility] [address] [place] [address] Benzodiazepines Ql (U) Positive Abnormal Negative [facility] Comment on above: Result Comment: Crit ical Result verified by repeat analysis\No confirmation requested by Physican\Unconfirmed by alternate method\Critical Result UD_BENZ:POS Called to [facility] by MANUEL CONTRERAS And Read Back For Confirmation at: 2023 03:46:52Negative Cutoff: <200 ng/mL Performed By: #### 2 625429 ####[facility] [address] [place] [address] Amphetamines Screen method >1000 ng/mL Ql (U) Negative Normal Negative [facility] Comment on above: Result Comment: Nega tive Cutoff: <1000 ng/mL Performed By: #### 2 261094 ####[facility] [address] [place] [address] Cocaine Ql (U) Negative Normal Negative [facility] Comment on above: Result Comment: Nega tive Cutoff: <300 ng/mL Performed By: #### 2 851997 ####[facility] [address] [place] [address] Opiates Screen Ql (U) Negative Normal Negative Fis [facility] Comment on above: Result Comment: Nega tive Cutoff: <300 ng/mL Performed By: #### 2 068056 ####[facility] [address] [place] [address] Phencyclidine Screen method >25 ng/mL Ql (U) Negative Normal Negative [facility] Comment on above: Result Comment: Nega tive Cutoff: <25 ng/mLThese drug screen results are to be used for medical (i.e., treatment) purposes only. Unconfirmed drug screening results must not be used for non-medical purposes (e.g., employment testing, legal testing). Performed By: #### 2 114272 ####[facility] [address] [place] [address] Tetrahydrocannabinol Screen method >50 ng/mL Ql (U) Negative Normal Negative [facility] Comment on above: Result Comment: Nega tive Cutoff: <50 ng/mL Performed By: #### 2 431566 ####[facility] [address] [place] [address] UA With Cult Reflexon 2022 Bacteria LM Ql (Urine sed) TRACE Normal Trace [facility] Comment on above: Performed By: #### 1 4119140 ####[facility] [address] [place] [address] Bilirubin Ql (U) Negative Normal Negative [facility] Comment on above: Performed By: #### 1 3243673 ####[facility] [address] [facility] [place] [address] Clarity (U) CLEAR Normal Clear [facility] Comment on above: Performed By: #### 1 7439791 ####[facility] [address] [place] [address] Color (U) YELLOW Normal Yellow [facility] Comment on above: Performed By: #### 1 8341575 ####[facility] [address] [place] [address] Crystals LM Ql (Urine sed) Present Normal [facility] Comment on above: Performed By: #### 1 9585414 ####[address] [address] Epithelial cells.squamous LM.HPF (Urine sed) [#/Area] 0-2 Normal 0-2 [facility] Comment on above: Performed By: #### 1 3404155 ####[address] [address] Glucose Test strip (U) [Mass/Vol] Negative Normal Negative [facility] Comment on above: Performed By: #### 1 1171574 ####[address] [address] Hemoglobin Ql (U) 1+ Abnormal Negative [facility] Comment on above: Performed By: #### 1 6611970 ####[address] [address] Ketones (U) [Mass/Vol] Negative Normal Negative [facility] Comment on above: Performed By: #### 1 9335425 ####[address] [address] Ector.plasma/Lithiu m.RBC (Bld) [Mass ratio] 0-3 Normal 0-3 [facility] Comment on above: Performed By: #### 1 7330049 ####[address] [address] Mucus Ql (Urine sed) TRACE Normal Fish [facility] Comment on above: Performed By: #### 1 1620943 ####[address] [address] Nitrite Ql (U) Negative Normal Negative [facility] Comment on above: Performed By: #### 1 7277763 ####[address] [address] pH (U) 6.5 [pH] Invalid Interpretation Code 5.0-9.0 [facility] Comment on above: Performed By: #### 1 7752682 ####[facility] [address] [place] [address] Protein (U) [Mass/Vol] Negative Normal Negative [facility] Comment on above: Performed By: #### 1 8405061 ####[address] [address] Specific gravity (U) [Rel density] 1.020 Invalid Interpretation Code 1.005-1.030 [facility] Comment on above: Performed By: #### 1 9139863 ####[address] [address] Type of Urine collection method Clean Catch Normal [facility] Comment on above: Performed By: #### 1 2105002 ####[address] [address] Urobilinogen Qn (U) 0.2 {Surinder'U}/dL Normal 0.0-1.0 [facility] Comment on above: Performed By: #### 1 9292789 ####[facility] [address] [place] [address] WBC Auto Ql (U) Negative Normal Negative [facility] Comment on above: Performed By: #### 1 5582970 ####[facility] [address] [place] [address] WBC LM.HPF (Urine sed) [#/Area] 0-5 Normal 0-5 [facility] Comment on above: Performed By: #### 1 7147486 ####[address] [address] URINALYSISOrdered By: Arlene Contreras on 2023 Bacteria LM Ql (Urine sed) Trace /HPF Normal Trace/HPF [facility] Auto SS Bilirubin Ql (U) Negative (01/05/23 3:02 AM) Normal Negative [facility] Auto SS Clarity (U) Clear (01/05/23 3:02 AM) Normal Clear [facility] UA Auto SS Color (U) Yellow (01/05/23 3:02 AM) Normal Yellow [facility] UA Auto SS Crystals LM Ql (Urine sed) Present (01/05/23 3:02 AM) Normal [facility] UA Auto SS Epithelial cells.squamous LM.HPF (Urine sed) [#/Area] 0-2 /HPF Normal 0-2/HPF [facility] UA Aut o SS Glucose Test strip (U) [Mass/Vol] Negative (01/05/23 3:02 AM) Normal Negative [facility] UA Auto SS Hemoglobin Ql (U) 1+ *ABN* (01/05/23 3:02 AM) Invalid Interpretation Code Negative [facility] UA Auto SS Ketones (U) [Mass/Vol] Negative (01/05/23 3:02 AM) Normal Negative [facility] UA Auto SS Ector.plasma/Lithiu m.RBC (Bld) [Mass ratio] 0-3 /HPF Normal [...] Desc Clean Catch (01/05/23 3:02 AM) Normal [facility] UA Auto SS Urobilinogen Qn (U) 0.5147175 {Surinder'U}/dL Normal 0.0 - 1.0 EU/dL [facility] UA Auto SS WBC Auto Ql (U) Negative (01/05/23 3:02 AM) Normal Negative [facility] UA Auto SS WBC LM.HPF (Urine sed) [#/Area] 0-5 /HPF Normal 0-5/HPF [facility] UA Auto SS XR Chest Single Viewon 01-05 XR Chest Single View Normal Fish er [facility] XR Knee Complete 4+ Views Le fton 2023 XR Knee Complete 4+ Views Left Normal [place] [facility] eGFRon 2023 GFR/1.73 sq M.predicted among non-blacks MDRD (S/P/Bld) [Vol rate/Area] 119 mL/min/1.73 m2 Normal >=59 [facility] Comment on above: Order Comment: Order added by Discern Expert. Result Comment: Branch Logistics Supervisor justin kidney disease could be indicated at eGFR's of less than 60 mL/min/1.73m2. Kidney failure is indicated at less than 15 mL/min/1.73m2. Performed By: #### 2 586498, 8225275, 64289754, 5013173, 3815636, 0394053, 4217792 ####[facility] [address] [place] [address] GFR/1.73 sq M.predicted among non-blacks MDRD (S/P/Bld) [Vol rate/Area] 101 mL/min/1.73 m2 Normal >=59 [facility] Comment on above: Order Comment: Order added by Discern Expert. Result Comment: Branch Logistics Supervisor justin kidney disease could be indicated at eGFR's of less than 60 mL/min/1.73m2. Kidney failure is indicated at less than 15 mL/min/1.73m2. Performed By: #### 2 607298, 45459327, 4025656, 3980675, 9336186, 62749164, 85130535 ####[facility] [address] [place] [address] Auto Diffon 01-02-2023 Basophils/100 WBC (Bld) 0.7 % Normal 0.0-2.0 [facility] Comment on above: Order Comment: Order Added by Discern Expert. Performed By: #### 2 330910, 69531469, 9370868, 9187656, 1845673, 62627650, 15195260 ####[facility] [address] [place] [address] Basophils/Leukocytes Auto (Bld) [Pure # fraction] 0.1 E9/L Normal 0.0-0.2 [facility] Comment on above: Order Comment: Order Added by Discern Expert. Performed By: #### 2 044206, 77899111, 2676528, 0553595, 4214032, 14648629, 46366446 ####[place] [address] [place] [address] Eosinophils/100 WBC (Bld) 1.3 % Normal 0.0-8.0 [facility] Comment on above: Order Comment: Order Added by Discern Expert. Performed By: #### 2 630008, 21176232, 3738749, 9548739, 8744652, 69959853, 42340427 ####[place] [address] [place] [address] Eosinophils/Leukocyte s Auto (Bld) [Pure # fraction] 0.1 E9/L Normal 0.0-0.5 [facility] Comment on above: Order Comment: Order Added by Discern Expert. Performed By: #### 2 120422, 61735519, 3824503, 5543026, 1500884, 73489067, 87844404 ####[address] [address] Lymphocytes/100 WBC (Bld) 55.8 % High 14.0-50.0 [facility] Comment on above: Order Comment: Order Added by Discern Expert. Performed By: #### 2 939473, 84775886, 7974061, 5567550, 4947553, 63126531, 44590001 ####[address] [address] Lymphocytes/Leukocyte s Auto (Bld) [Pure # fraction] 4.5 E9/L High 1.0-4.0 [facility] Comment on above: Order Comment: Order Added by Discern Expert. Performed By: #### 2 370988, 03582150, 1830569, 4821011, 8763092, 14590730, 01569605 ####[place] [address] [place] [address] Monocytes/100 WBC (Bld) 3.8 % Low 4.0-14.0 [facility] Comment on above: Order Comment: Order Added by Discern Expert. Performed By: #### 2 320893, 63315840, 4531452, 7669787, 9607059, 02354617, 14569731 ####[facility] [address] [place] [address] Monocytes/Leukocytes Auto (Bld) [Pure # fraction] 0.3 E9/L Normal 0.2-1.0 [facility] Comment on above: Order Comment: Order Added by Discern Expert. Performed By: #### 2 263012, 61247149, 7545648, 5104567, 3740573, 16907636, 79395410 ####[place] [place] [address] Neutrophils/100 WBC (Bld) 38.4 % Normal 36.0-75.0 [facility] Comment on above: Order Comment: Order Added by Discern Expert. Performed By: #### 2 420323, 60347755, 4285159, 8240956, 9002404, 51298647, 51367084 ####[facility] [address] [place] [address] Neutrophils/Leukocyte s Auto (Bld) [Pure # fraction] 3.1 E9/L Normal 2.0-7.5 [facility] Comment on above: Order Comment: Order Added by Discern Expert. Performed By: #### 2 473188, 64017877, 2596058, 8185544, 4330495, 06289600, 82134546 ####[facility] [address] [place] [address] BMP 01-02-2023 Creatinine [Mass/Vol] 0.5 mg/dL Normal 0.5-1.3 [facility] Comment on above: Performed By: #### 2 980603, 02438424, 4819345, 7410569, 7638784, 19550792, 54437282 ####[facility] [address] [place] [address] Urea nitrogen [Mass/Vol] 8 mg/dL Normal 5-21 [facility] Comment on above: Performed By: #### 2 320057, 24445442, 5320487, 3252545, 0598751, 06112794, 47548619 ####[facility] [address] [place] [address] Urea nitrogen/Creatinine [Mass ratio] 16 No Units Normal 10-20 [facility] Comment on above: Performed By: #### 2 266371, 98119663, 1669227, 3989681, 3909110, 00861664, 44393385 ####[facility] [address] [place] [address] Anion gap [Moles/Vol] 11 mmol/L Normal 6-16 [facility] Comment on above: Performed By: #### 2 374978, 15565437, 3248247, 2638246, 7773264, 40006903, 61028843 ####[facility] [address] [place] [address] Calcium [Mass/Vol] 8.3 mg/dL Low 8.9-11.1 [facility] Comment on above: Performed By: #### 2 549994, 00046147, 8012700, 3976673, 3132145, 57894309, 06514703 ####[facility] [address] [place] [address] Chloride [Moles/Vol] 109 mmol/L Normal 101-111 [facility] Comment on above: Performed By: #### 2 838805, 69262970, 9655725, 7890079, 8792377, 52019942, 78315306 ####[facility] [address] [place] [address] CO2 [Moles/Vol] 25 mmol/L Normal 21-31 [facility] Comment on above: Performed By: #### 2 851308, 29000008, 7787490, 6791932, 2840485, 01821653, 87984579 ####[facility] [address] [place] [address] Glucose [Mass/Vol] 84 mg/dL Normal 55-199 [facility] Comment on above: Result Comment: If t his glucose result represents a fasting glucose, interpretation should refer to the following reference range: 55-99 mg/dL Performed By: #### 2 462740, 24397882, 4347495, 4767079, 0659154, 66970963, 32493316 ####[facility] [address] [place] [address] Potassium [Moles/Vol] 3.8 mmol/L Normal 3.5-5.3 [facility] Comment on above: Performed By: #### 2 144413, 80099162, 0928028, 4802570, 9818610, 65463890, 18408907 ####[facility] [address] [place] [address] Sodium [Moles/Vol] 141 mmol/L Normal 135-145 [facility] Comment on above: Performed By: #### 2 379730, 49048161, 7853390, 8129450, 5802266, 92134221, 45674355 ####[facility] [address] [place] [address] CBC w/ Auto Diffon 3 Erythrocyte distribution width (RBC) [Ratio] 13.3 % Normal 10.9-14.2 [facility] Comment on above: Performed By: #### 2 284536, 89713127, 5835079, 6061695, 5766711, 80037182, 10217783 ####[facility] [address] [place] [address] Hematocrit (Bld) [Volume fraction] 43.4 % Normal 34.0-46.0 [facility] Comment on above: Performed By: #### 2 514934, 70956752, 3103909, 3851997, 5433983, 03607683, 21202167 ####[facility] [address] [place] [address] Hemoglobin (Bld) [Mass/Vol] 14.5 g/dL Normal 12.0-16.0 [facility] Comment on above: Performed By: #### 2 242514, 71247358, 6187218, 1155732, 0669217, 87756855, 49348637 ####[facility] [address] [place] [address] MCH (RBC) [Entitic mass] 33.3 pg Normal 27.0-34.0 [facility] Comment on above: Performed By: #### 2 551120, 77437895, 4906107, 7777715, 8483835, 71789413, 84518393 ####[facility] [address] [place] [address] MCHC (RBC) [Mass/Vol] 33.4 g/dL Normal 31.4-36.0 [facility] Comment on above: Performed By: #### 2 681695, 74946814, 4323692, 8053960, 7530771, 78713664, 26532756 ####[address] [address] MCV (RBC) [Entitic vol] 99.6 fL Normal 80.0-100.0 [facility] Comment on above: Performed By: #### 2 507737, 13068228, 8134890, 7241539, 9993695, 33961492, 38446011 ####[place] [place] [address] Platelet mean volume (Bld) [Entitic vol] 8.4 fL Normal 6.4-10.8 [facility] Comment on above: Performed By: #### 2 509578, 07565651, 9489070, 0431382, 0620311, 05299701, 23160281 ####[address] [address] Platelets (Bld) [#/Vol] 204.0 E9/L Normal 150.0-500.0 [facility] Comment on above: Performed By: #### 2 025966, 60638758, 9386409, 5180310, 3090824, 11248268, 94225390 ####[facility] [address] [place] [address] RBC (Bld) [#/Vol] 4.4 E12/L Normal 4.3-5.9 [facility] Comment on above: Performed By: #### 2 041238, 33753867, 5698668, 2405536, 3795505, 18480229, 98392792 ####[facility] [address] [place] [address] WBC corrected for nucl RBC Auto (Bld) [#/Vol] 8.0 E9/L Normal 4.0-11.0 [facility] Comment on above: Performed By: #### 2 872953, 09700921, 2222057, 0542179, 0416655, 96974673, 95132588 ####[facility] [address] [place] [address] CHEMISTRYOrdered By: SYSTEM SYSTEM on 01-02-2023 Anion [...] 129 mL/min/1.73 m2 Normal >=59mL/min/1 .73 m2 [facility] [place] Chem S Comment on above: Interpretive Data: C hronic kidney disease could be indicated at eGFR's of less than 60 mL/min/1.73m2. Kidney failure is indicated at less than 15 mL/min/1.73m2. Glucose [Mass/Vol] 84 mg/dL Normal 55 - 199 mg/dL [facility] [place] [place] Remisol Comment on above: Interpretive Data: I f this glucose result represents a fasting glucose, interpretation should refer to the following reference range: 55-99 mg/dL Magnesium [Mass/Vol] 1.9 mg/dL Normal 1.3 - 2 .4 mg/dL [facility] [place] [place] Remisol Potassium [Moles/Vol] 3.8 mmol/L Normal 3.5 - 5.3 mmol/L [facility] [place] Remisol Sodium [Moles/Vol] 141 mmol/L Normal 135 - 145 mmol/L [facility] [place] Remisol Troponin I.cardiac [Mass/Vol] 4.90 pg/mL Low 10.10 - 27.10 pg/mL [facility] [place] Remisol Comment on above: Interpretive Data: T he 95% CI (Confidence Interval) PPV (Positive Predictive Value) for myocardial infarction in females is 38 pg/mL, in males 51 pg/mL. The results should be used in conjunction with clinical conditions of myocardial infarction. (Access High Sensitivity Troponin I Instructions For Use, [employer], September 2017) Urea nitrogen [Mass/Vol] 8 mg/dL Normal 5 - 21 mg/dL [facility] [place] Remisol Urea nitrogen/Creatinine [Mass ratio] 16 mg/mg Normal 10 - 20 [facility] [place] Remisol COAGULATIONOrdered By: Sixto Coleman on 01-02-2023 aPTT Coag (PPP) [Time] 34.5 s Normal 25.1 - 36.5 second(s) [facility] [place] Auto Coag Comment on above: Interpretive Data: Romelia roberts 15 days - 4 weeks 1 - [...] the same coagulation reagent and instrumentation as [facility] [place]. Currently there are no coagulation studies available worldwide for children to 14 days, and no normal ranges. Heparin therapeutic range (represented by Anti-Factor Xa activity of 0.2 - 0.4 U/mL) corresponds to PTT of 56.6 - 109.0 sec. INR Coag (PPP) [Relative time] 1.1 {INR} Invalid Interpretation Code [facility] [place] Auto Coag Comment on above: Interpretive Data: I NR results are specifically intended to assess patients stabilized on long-term Anticoagulation therapy suggested INR s Less Intensive Anticoagulation 2.0 3.0 Conventional Range 3.0 4.5 PT Coag (PPP) [Time] 12.2 s Normal 9.4 - 1 2.5 second(s) [facility] [place] Auto Coag Comment on above: Interpretive Data: [...] the same coagulation reagent and instrumentation as [facility] [place]. Currently there are no coagulation studies available worldwide for children to 14 days, and no normal ranges. Consent for Treatmenton 12-13 Consent for Treatment [id number] FF [facility] Discharge Instructionson Discharge Instructions [id number] FF Normal [facility] ED Clinical Summaryon 2022 ED Clinical Summary Normal [facility] [place] ED Note-Physicianon 01-03-20 23 ED Note-Physician Normal [facility] Comment on above: Result Comment: Elec tronically Signed By: Darren Guzman DO\.br\Date and Time Signed: 01/02/23 02:02 EST ED Patient Education Noteon 01-02-2023 ED Patient Education Note Normal [facility] ED Patient Summaryon 023 ED Patient Summary Normal [facility] Ethanolon 01-02-2023 Ethanol [Mass/Vol] 359 mg/dL Abnormal <=7 [facility] Comment on above: Result Comment: Crit ical Result verified by repeat analysis\Critical Result S_ETOH:359.0 Called to [facility] AT ER by SIXTO COLEMAN And Read Back For Confirmation at: 01/02/2023 01:49:19 Performed By: #### 2 [id number] ####[facility] [address] [place] [address] HEMATOLOGYOrdered By: SYSTEM SYSTEM on 01-02-2023 Basophils/100 [...] 3.1 E9/L Normal 2.0 - 7.5 E9/L FT HemeAutoSS HEMATOLOGYOrdered By: Sixto Coleman on 01-02-2023 Erythrocyte distribution width (RBC) [Ratio] 13.3 % Normal 10.9 - 14.2 % FT HemeAutoSS Hematocrit (Bld) [Volume fraction] 43.4 % Normal 34.0 - 46.0 % FT HemeAutoSS Hemoglobin (Bld) [Mass/Vol] 14.5 g/dL Normal 12.0 - 16.0 gm/dL FT HemeAutoSS MCH (RBC) [Entitic mass] 33.3 pg Normal 27.0 - 34.0 pg FT HemeAutoSS MCHC (RBC) [Mass/Vol] 33.4 g/dL Normal 31.4 - 36.0 gm/dL FT HemeAutoSS MCV (RBC) [Entitic vol] 99.6 fL Normal 80.0 - 100.0 fL FT HemeAutoSS Platelet mean volume (Bld) [Entitic vol] 8.4 fL Normal 6.4 - 10.8 fL FT HemeAutoSS Platelets (Bld) [#/Vol] 204.0 E9/L Normal 150.0 - 500.0 E9/L FT HemeAutoSS RBC (Bld) [#/Vol] 4.4 E12/L Normal 4.3 - 5.9 E12/L FT HemeAutoSS WBC corrected for nucl RBC Auto (Bld) [#/Vol] 8.0 E9/L Normal 4.0 - 11.0 E9/L [facility] [place] HemeAutoSS Magnesiumon 01-02-2023 Magnesium [Mass/Vol] 1.9 mg/dL Normal 1.3-2.4 [facility] Comment on above: Performed By: #### 2 066918, [id number], 2461672, 2532774, 8137713, [id number], [id number] ####[facility] [address] [place] [address] PT & PTTon 01-02-2023 aPTT Coag (PPP) [Time] 34.5 second(s) Normal 25.1-36.5 [facility] Comment on above: Result Comment: Para meter [...] the same coagulation reagent and instrumentation as [facility] [place]. Currently there are no coagulation studies available worldwide for children to 14 days, and no normal ranges. Heparin therapeutic range (represented by Anti-Factor Xa activity of 0.2 - 0.4 U/mL) corresponds to PTT of 56.6 - 109.0 sec. Performed By: #### 2 871975, [id number], 8581751, 4702865, 8255286, 49890701, 23461817 ####[facility] [address] [place] [address] INR Coag (PPP) [Relative time] 1.1 {INR} Invalid Interpretation Code [facility] Comment on above: Result Comment: INR results are specifically intended to assess patients stabilized on long-term Anticoagulation therapy suggested INR?s ?Less Intensive Anticoagulation? 2.0 ? 3.0Conventional Range 3.0 ? 4.5 Performed By: #### 2 058497, 41751179, 1131224, 7711523, 3579048, 57486799, 95645015 ####[facility] [address] [place] [address] PT Coag (PPP) [Time] 12.2 second(s) Normal 9.4-12.5 [facility] Comment on above: Result Comment: 15 d [...] the same coagulation reagent and instrumentation as [facility] [place]. Currently there are no coagulation studies available worldwide for children to 14 days, and no normal ranges. Performed By: #### 2 876675, 47676101, 3643437, 6771655, 1344165, 92486666, 82976888 ####[facility] [address] [place] [address] Pre-Arrival Noteon Pre-Arrival Note Normal [facility] Pre-Arrival Note Normal [facility] Troponin 0 Hr.on 01-02-2023 Troponin I.cardiac [Mass/Vol] 4.90 pg/mL Low 10.10-27.10 [facility] Comment on above: Result Comment: The 95% CI (Confidence Interval) PPV (Positive Predictive Value) for myocardial infarction in females is 38 pg/mL, in males 51 pg/mL. The results should be used in conjunction with clinical conditions of myocardial infarction.(Access High Sensitivity Troponin I Instructions For Use, Yvrose Recombine, September 2017) Performed By: #### 2 843145, 11163625, 2826939, 4180415, 8178318, 57139986, 18791625 ####[facility] [address] [place] [address] XR Chest Single Viewon 01-02 XR Chest Single View Normal [facility] eGFRon 01-02-2023 GFR/1.73 sq M.predicted among non-blacks MDRD (S/P/Bld) [Vol rate/Area] 129 mL/min/1.73 m2 Normal >=59 [facility] Comment on above: Order Comment: Order added by Discern Expert. Result Comment: Branch Logistics Supervisor justin kidney disease could be indicated at eGFR's of less than 60 mL/min/1.73m2. Kidney failure is indicated at less than 15 mL/min/1.73m2. Performed By: #### 2 677901, 17820870, 4797169, 5531001, 3796012, 48806645, 66639057 ####[facility] [address] [place] [address] SARS coronavirus 2 RNAon SARS-CoV-2 (COVID-19) RNA MOISES+probe Ql (Resp) Not detected Normal Not Detected [facility] Comment on above: Order Comment: This assay [...] and has been validated for use at [facility]. Negative results do not preclude COVID-19 infections and should not be used as the sole basis for diagnosis, treatment, or other management decisions. Performed By: #### 2 4323-8 #### CARLTON Barragan ([id number]) [facility] ([facility] [place] [address] [place] [address]96 SARS-CoV-2 (COVID-19) RNA NA A+probe Ql (Resp)on 12-16-2022 Interpretation and review of laboratory results Normal [facility] This assay has recei laquita FDA Emergency [...] and has been validated for use at [facility]. Negative results do not preclude COVID-19 infections and should not be used as the sole basis for diagnosis, treatment, or other management decisions. [facility] Sars-CoV-2 PCR, Screen Asymp tomaticon 12-16-2022 SARS-CoV-2 (COVID-19) RNA MOISES+probe Ql (Resp) Not detected Not Detected [facility] ACUTE TOXICOLOGY PANEL, MACARENA Don 12-15-2022 Acetaminophen [Mass/Vol] ug/mL Normal 10.0-30.0 [facility] Comment on above: Performed By: #### D RUBL #### CARLTON Barragan ([id number]) [facility] ([facility] [place] [address] [place] [address] 90879 Ethanol [Mass/Vol] mg/dL Normal <=[address] [facility] Comment on above: Performed By: #### D RUBL #### CARLTON Barragan ([id number]) [facility] ([facility] [place] [address] [place] [address] 22591 Salicylates [Mass/Vol] mg/dL Normal 4-20 [facility] Comment on above: Performed By: #### D RUBL #### CARLTON Barragan ([id number]) [facility] ([facility] [place] [address] [place] [address] 00386 CBC W Auto Differential pane l (Bld)on 12-15-2022 Basophils (Bld) [#/Vol] 0.02 x10*3/uL Normal 0.00-0.10 [facility] Comment on above: Result Comment: Auto mated WBC differential has been confirmed by manual smear. Performed By: #### 2 4323-8 #### CARLTON Barragan ([id number]) [facility] ([facility] [place] [address] [place] [address] 43906 Basophils/100 WBC (Bld) 0.3 % Normal 0.0-2.0 [facility] Comment on above: Performed By: #### 2 4323-8 #### CARLTON Barragan ([id number]) [facility] ([facility] [place] [address] [place] [address] 02572 Eosinophils (Bld) [#/Vol] 0.08 x10*3/uL Normal 0.00-0.70 [facility] Comment on above: Performed By: #### 2 4323-8 #### CARLTON Barragan ([id number]) [facility] ([facility] [place] [address] [place] [address] Eosinophils/100 WBC (Bld) 1.4 % Normal 0.0-6.0 [facility] Comment on above: Performed By: #### 2 4323-8 #### CARLTON Barragan ([id number]) [facility] ([facility] [place] [address] [place] [address] Erythrocyte distribution width (RBC) [Ratio] 12.4 % Normal 11.5-14.5 [facility] Comment on above: Performed By: #### 2 4323-8 #### CARLTON Barragan ([id number]) [facility] ([facility] [place] [address] [place] [address] Hematocrit (Bld) [Volume fraction] 39.4 % Normal 36.0-46.0 [facility] Comment on above: Performed By: #### 2 432-8 #### CARLTON Barragan ([id number]) [facility] ([facility] [place] [address] [place] [address] Hemoglobin (Bld) [Mass/Vol] 13.8 g/dL Normal 12.0-16.0 [facility] Comment on above: Performed By: #### 2 4323-8 #### CARLTON Barragan ([id number]) [facility] ([facility] [place] [address] [place] [address] Immature granulocytes (Bld) [#/Vol] 0.02 x10*3/uL Normal 0.00-0.70 [facility] Comment on above: Performed By: #### 2 4323-8 #### CARLTON Barragan ([id number]) [facility] ([facility] [place] [address] [place] [address] Immature granulocytes/100 WBC (Bld) 0.3 % Normal 0.0-0.9 [facility] Comment on above: Result Comment: Jennifer ture Granulocyte Count (IG) includes promyelocytes, myelocytes and metamyelocytes but does not include bands. Percent differential counts (%) should be interpreted in the context of the absolute cell counts (cells/UL). Performed By: #### 2 4323-8 #### CARLTON Barragan ([id number]) [facility] ([facility] [place] [address] [place] [address] 66205 Lymphocytes (Bld) [#/Vol] 1.92 x10*3/uL Normal 1.20-4.80 [facility] Comment on above: Performed By: #### 2 4323-8 #### CARLTON Barragan ([id number]) [facility] ([facility] [place] [address] [place] [address] Lymphocytes/100 WBC (Bld) 32.6 % Normal 13.0-44.0 [facility] Comment on above: Performed By: #### 2 4323-8 #### CARLTON Barragan ([id number]) [facility] ([facility] [place] [address] [place] [address] 06395 MCH (RBC) [Entitic mass] 34.4 pg High 26.0-34.0 [facility] Comment on above: Performed By: #### 2 432-8 #### CARLTON Barragan ([id number]) [facility] ([facility] [place] [address] [place] [address] 70324 MCHC (RBC) [Mass/Vol] 35.0 g/dL Normal 32.0-36.0 [facility] Comment on above: Performed By: #### 2 4323-8 #### CARLTON Barragan ([id number]) [facility] ([facility] [place] [address] [place] [address] 29006 MCV (RBC) [Entitic vol] 98 fL Normal 80-100 [facility] Comment on above: Performed By: #### 2 4323-8 #### CARLTON Barragan ([id number]) [facility] ([facility] [place] [address] [place] [address] 05298 Monocytes (Bld) [#/Vol] 0.22 x10*3/uL Normal 0.10-1.00 [facility] Comment on above: Performed By: #### 2 4323-8 #### CARLTON Barragan ([id number]) [facility] ([facility] [place] [address] [place] [address] 03990 Monocytes/100 WBC (Bld) 3.7 % Normal 2.0-10.0 [facility] Comment on above: Performed By: #### 2 4323-8 #### CARLTON Barragan ([id number]) [facility] ([facility] [place] [address] [place] [address] 21944 Neutrophils (Bld) [#/Vol] 3.63 x10*3/uL Normal 1.20-7.70 [facility] Comment on above: Result Comment: Perc ent differential counts (%) should be interpreted in the context of the absolute cell counts (cells/uL). Performed By: #### 2 4323-8 #### CARLTON Barragan ([id number]) [facility] ([facility] [place] [address] [place] [address] 74934 Neutrophils/100 WBC (Bld) 61.7 % Normal 40.0-80.0 [facility] Comment on above: Performed By: #### 2 4323-8 #### CARLTON Barragan ([id number]) [facility] ([facility] [place] [address] [place] [address] 93221 Nucleated RBC/100 WBC (Bld) [Ratio] 0.0 /100 WBCs Normal 0.0-0.0 [facility] Comment on above: Performed By: #### 2 4323-8 #### CARLTON Barragan ([id number]) [facility] ([facility] [place] [address] [place] [address] 39614 Platelets (Bld) [#/Vol] 89 x10*3/uL Low 150-450 [facility] Comment on above: Result Comment: Plat elet count verified by smear review. Performed By: #### 2 4323-8 #### CARLTON Barragan ([id number]) [facility] ([facility] [place] [address] [place] [address] 07374 RBC (Bld) [#/Vol] 4.01 x10*6/uL Normal 4.00-5.20 [facility] Comment on above: Performed By: #### 2 4323-8 #### CARLTON Barragan ([id number]) [facility] ([facility] [place] [address] [place] [address] 45175 WBC (Bld) [#/Vol] 5.9 x10*3/uL Normal 4.4-11.3 [facility] Comment on above: Performed By: #### 2 4323-8 #### CARLTON Barragan ([id number]) [facility] ([facility] [place] [address] [place] [address] 56788 Comprehensive metabolic 2000 panelon 12-15-2022 Albumin BCP dye [Mass/Vol] 4.3 g/dL Normal 3.4-5.0 [facility] Comment on above: Performed By: #### 2 4323-8 #### CARLTON Barragan ([id number]) [facility] ([facility] [place] [address] [place] [address] 31587 ALP [Catalytic activity/Vol] 131 U/L High 33-110 [facility] Comment on above: Performed By: #### 2 4323-8 #### CARLTON Barragan ([id number]) [facility] ([facility] [place] [address] [place] [address] 96125 ALT With P-5'-P [Catalytic activity/Vol] 113 U/L High 7-45 [facility] Comment on above: Result Comment: Tran ents treated with Sulfasalazine may generate falsely decreased results for ALT. Performed By: #### 2 4323-8 #### CARLTON Barragan ([id number]) [facility] ([facility] [place] [address] [place] [address] 82458 Anion gap [Moles/Vol] 11 mmol/L Normal 10-20 [facility] Comment on above: Performed By: #### 2 4323-8 #### CARLTON Barragan ([id number]) [facility] ([facility] [place] [address] [place] [address] 56611 AST With P-5'-P [Catalytic activity/Vol] 180 U/L High 9-39 [facility] Comment on above: Performed By: #### 2 4323-8 #### CARLTON Barragan ([id number]) [facility] ([facility] [place] [address] [place] [address] 74041 Bilirubin [Mass/Vol] 1.0 mg/dL Normal 0.0-1.2 [facility] Comment on above: Performed By: #### 2 4323-8 #### CARLTON Barragan ([id number]) [facility] ([facility] [place] [address] [place] [address] 16985 Calcium [Mass/Vol] 9.9 mg/dL Normal 8.6-10.[address] [facility] Comment on above: Performed By: #### 2 4323-8 #### CARLTON Barragan ([id number]) [facility] ([facility] [place] [address] [place] [address] 06242 Chloride [Moles/Vol] 99 mmol/L Normal 98-107 [facility] Comment on above: Performed By: #### 2 4323-8 #### CARLTON Barragan ([id number]) [facility] ([facility] [place] [address] [place] [address] 09333 CO2 [Moles/Vol] 27 mmol/L Normal 21-32 [facility] Comment on above: Performed By: #### 2 4323-8 #### CARLTON Barragan ([id number]) [facility] ([facility] [place] [address] [place] [address] 67676 Creatinine [Mass/Vol] 0.68 mg/dL Normal 0.50-1.05 [facility] Comment on above: Performed By: #### 2 4323-8 #### CARLTON Barragan ([id number]) [facility] ([facility] [place]) [address] [place] [address] 05373 GFR/1.73 sq M.predicted MDRD (S/P/Bld) [Vol rate/Area] mL/min/{1.73_m2} Normal >60 [facility] Comment on above: Result Comment: Calc ulations of estimated GFR are performed using the 2020 CKD-EPI Study Refit equation without the race variable for the IDMS-Traceable creatinine methods. https://jasn.asnjournals.org/content//ASN.838702 8744 Performed By: #### 2 4323-8 #### CARLTON Barragan ([id number]) [facility] ([facility] [place]) [address] [place] [address] 13641 Glucose [Mass/Vol] 81 mg/dL Normal 74-[address] [facility] Comment on above: Performed By: #### 2 4323-8 #### CARLTON Barragan ([id number]) [facility] ([facility] [place] [address] [place] [address] 24389 Potassium [Moles/Vol] 4.2 mmol/L Normal 3.5-5.3 [facility] Comment on above: Performed By: #### 2 4323-8 #### CARLTON Barragan ([id number]) [facility] ([facility] [place] [address] [place] [address] 61722 Protein [Mass/Vol] 8.3 g/dL High 6.4-8.[address] [facility] Comment on above: Performed By: #### 2 4323-8 #### CARLTON Barragan ([id number]) [facility] ([facility] [place] [address] [place] [address] 46506 Sodium [Moles/Vol] 133 mmol/L Low 136-[address] [facility] Comment on above: Performed By: #### 2 4323-8 #### CARLTON Barragan ([id number]) [facility] ([facility] [place] [address] [place] [address] 11453 Urea nitrogen [Mass/Vol] 10 mg/dL Normal 6-23 [facility] Comment on above: Performed By: #### 2 4323-8 #### CARLTON Barragan ([id number]) [facility] ([facility] [place]) [address] [place] [address] 94477 DRUG SCREEN,URINEon 12-16-19 23 Amphetamines Screen Ql (U) Negative Normal Presumptive Negative [facility] Comment on above: Order Comment: Drug screen results are presumptive and should not be used to assesscompliance with prescribed medication. Contact the performing [facility] laboratoryto add-on definitive confirmatory testing if [...] By: #### 2 4323-8 #### CARLTON Barragan ([id number]) [facility] ([facility] [place]) [address] [place] [address] Barbiturates Screen Ql (U) Positive Abnormal Presumptive Negative [facility] Comment on above: Order Comment: Drug screen results are presumptive and should not be used to assesscompliance with prescribed medication. Contact the performing [facility] laboratoryto add-on definitive confirmatory testing if [...] By: #### 2 4323-8 #### CARLTON Barragan ([id number]) [facility] ([facility] [place]) [address] [place] [address] 68531 Benzodiazepines Ql (U) Positive Abnormal Presumptive Negative [facility] Comment on above: Order Comment: Drug screen results are presumptive and should not be used to assesscompliance with prescribed medication. Contact the performing [facility] laboratoryto add-on definitive confirmatory testing if [...] By: #### 2 4323-8 #### CARLTON Barragan ([id number]) [facility] ([facility]) [address] [place] [address] 67091 Benzoylecgonine Screen Ql (U) Negative Normal Presumptive Negative [facility] Comment on above: Order Comment: Drug screen results are presumptive and should not be used to assesscompliance with prescribed medication. Contact the performing [facility] laboratoryto add-on definitive confirmatory testing if [...] By: #### 2 4323-8 #### CARLTON Barragan ([id number]) [facility] ([facility] [place]) [address] [place] [address] 58308 Cannabinoids Screen Ql (U) Negative Normal Presumptive Negative [facility] Comment on above: Order Comment: Drug screen results are presumptive and should not be used to assesscompliance with prescribed medication. Contact the performing [facility] laboratoryto add-on definitive confirmatory testing if [...] By: #### 2 4323-8 #### CARLTON Barragan ([id number]) [facility] ([facility] [place]) [address] [place] [address] 92895 fentaNYL+Norfentanyl Screen Ql (U) Negative Normal Presumptive Negative [facility] Comment on above: Order Comment: Drug screen results are presumptive and should not be used to assesscompliance with prescribed medication. Contact the performing [facility] laboratoryto add-on definitive confirmatory testing if [...] By: #### 2 4323-8 #### CARLTON Barragan ([id number]) [facility] ([facility] [place]) [address] [place] [address] 21466 Opiates Screen Ql (U) Negative Normal Presum ptive Negative [facility] Comment on above: Order Comment: Drug screen results are presumptive and should not be used to assesscompliance with prescribed medication. Contact the performing [facility] laboratoryto add-on definitive confirmatory testing if [...] By: #### 2 4323-8 #### CARLTON Barragan ([id number]) [facility] ([facility]) [address] [place] [address] 14718 oxyCODONE+oxyMORphone Screen Ql (U) Negative Normal Presumptive Negative [facility] Comment on above: Order Comment: Drug screen results are presumptive and should not be used to assesscompliance with prescribed medication. Contact the performing [facility] laboratoryto add-on definitive confirmatory testing if [...] By: #### 2 4323-8 #### CARLTON Barragan ([id number]) [facility] ([facility]) [address] [place] [address] Phencyclidine Ql (U) Negative Normal Presump tive Negative [facility] Comment on above: Order Comment: Drug screen results are presumptive and should not be used to assesscompliance with prescribed medication. Contact the performing [facility] laboratoryto add-on definitive confirmatory testing if [...] By: #### 2 4323-8 #### CARLTON Barragan ([id number]) [facility] ([facility]) [address] [place] [address] Amphetamines Screen Ql (U) Negative Normal Presumptive Negative [facility] Comment on above: Order Comment: Drug screen results are presumptive and should not be used to assesscompliance with prescribed medication. Contact the performing [facility] laboratoryto add-on definitive confirmatory testing if [...] By: #### 2 4323-8 #### CARLTON Barragan ([id number]) [facility] ([facility] [address] [place] [address] 08493 Barbiturates Screen Ql (U) Negative Normal Presumptive Negative [facility] Comment on above: Order Comment: Drug screen results are presumptive and should not be used to assesscompliance with prescribed medication. Contact the performing [facility] laboratoryto add-on definitive confirmatory testing if [...] By: #### 2 4323-8 #### CARLTON Barragan ([id number]) [facility] ([facility]) [address] [place] [address] 72031 Benzodiazepines Ql (U) Positive Abnormal Presumptive Negative [facility] Comment on above: Order Comment: Drug screen results are presumptive and should not be used to assesscompliance with prescribed medication. Contact the performing [facility] laboratoryto add-on definitive confirmatory testing if [...] By: #### 2 4323-8 #### CARLTON Barragan ([id number]) [facility] ([facility] [address] [place] [address] 82353 Benzoylecgonine Screen Ql (U) Negative Normal Presumptive Negative [facility] Comment on above: Order Comment: Drug screen results are presumptive and should not be used to assesscompliance with prescribed medication. Contact the performing [facility] laboratoryto add-on definitive confirmatory testing if [...] By: #### 2 4323-8 #### CARLTON Barragan ([id number]) [facility] ([facility] [address] [place] [address] 40740 Cannabinoids Screen Ql (U) Negative Normal Presumptive Negative [facility] Comment on above: Order Comment: Drug screen results are presumptive and should not be used to assesscompliance with prescribed medication. Contact the performing [facility] laboratoryto add-on definitive confirmatory testing if [...] By: #### 2 4323-8 #### CARLTON Barragan ([id number]) [facility] ([facility]) [address] [place] [address] 87526 fentaNYL+Norfentanyl Screen Ql (U) Negative Normal Presumptive Negative [facility] Comment on above: Order Comment: Drug screen results are presumptive and should not be used to assesscompliance with prescribed medication. Contact the performing [facility] laboratoryto add-on definitive confirmatory testing if [...] By: #### 2 4323-8 #### CARLTON Barragan ([id number]) [facility] ([facility]) [address] [place] [address] Opiates Screen Ql (U) Negative Normal Presum ptive Negative [facility] Comment on above: Order Comment: Drug screen results are presumptive and should not be used to assesscompliance with prescribed medication. Contact the performing [facility] laboratoryto add-on definitive confirmatory testing if [...] By: #### 2 4323-8 #### CARLTON Barragan ([id number]) [facility] ([facility]) [address] [place] [address] oxyCODONE+oxyMORphone Screen Ql (U) Negative Normal Presumptive Negative [facility] Comment on above: Order Comment: Drug screen results are presumptive and should not be used to assesscompliance with prescribed medication. Contact the performing [facility] laboratoryto add-on definitive confirmatory testing if [...] By: #### 2 4323-8 #### CARLTON Barragan ([id number]) [facility] ([facility]) [address] [place] [address] 04500 Phencyclidine Ql (U) Negative Normal Presump tive Negative [facility] Comment on above: Order Comment: Drug screen results are presumptive and should not be used to assesscompliance with prescribed medication. Contact the performing [facility] laboratoryto add-on definitive confirmatory testing if [...] By: #### 2 4323-8 #### CARLTON Barragan ([id number]) [facility] ([facility]) [address] [place] [address] Drug Screen, Urineon 023 Amphetamines Screen Ql (U) Negative Presumptive Negative [facility] Comment on above: CUTOFF LEVEL: 500 NG /ML Cross-reactivity has been reported with high concentrations of the following drugs: buproprion, chloroquine, chlorpromazine, ephedrine, mephentermine, fenfluramine, phentermine, phenylpropanolamine, pseudoephedrine, and propranolol. Barbiturates Screen Ql (U) Positive Abnormal Presumptive Negative [facility] Comment on above: CUTOFF LEVEL: 200 NG /ML Benzodiazepines Ql (U) Positive Abnormal Presumptive Negative [facility] Comment on above: CUTOFF LEVEL: 200 NG /ML Benzoylecgonine Screen Ql (U) Negative Presumptive Negative [facility] Comment on above: CUTOFF LEVEL: 150 NG /ML Cannabinoids Screen Ql (U) Negative Presumptive Negative [facility] Comment on above: CUTOFF LEVEL: 50 NG/ ML fentaNYL+Norfentanyl Screen Ql (U) Negative Presumptive Negative [facility] Comment on above: CUTOFF LEVEL: 5 NG/M L Interpretation and review of laboratory results Abnormal [facility] Opiates Screen Ql (U) Negative Presum ptive Negative [facility] Comment on above: CUTOFF LEVEL: 300 NG /ML The opiate screen does not detect fentanyl, meperidine, or tramadol. Oxycodone is not consistently detected (refer to Oxycodone Screen, Urine result). oxyCODONE+oxyMORphone Screen Ql (U) Negative Presumptive Negative [facility] Comment on above: CUTOFF LEVEL: 100 NG /ML This test will accurately detect both oxycodone and oxymorphone. Phencyclidine Ql (U) Negative Presump tive Negative [facility] Comment on above: CUTOFF LEVEL: 25 NG/ ML Cross-reactivity has been reported with dextromethorphan. Drug screen results are presumptive and should not be used to assess compliance with prescribed medication. Contact the performing [facility] laboratory to add-on definitive confirmatory testing [...] be directed to the laboratory medical directors. [facility] HCG ( test) Tammy martinez Ql (U)on 12-15-2022 HCG ( test) Ql (U) Negative Normal NEGATIVE [facility] Comment on above: Performed By: #### 8 0384-1 #### CARLTON Barragan ([id number]) [facility] ([facility]) [address] [place] [address] RBC shape Nom (Bld)on 2022 RBC morphology finding Nom (Bld) No significant RBC morphology present Normal [facility] Comment on above: Performed By: #### 2 4323-8 #### CARLTON Barragan ([id number]) [facility] ([facility] [address] [place], [place] [phone] Urinalysis complete panel (U )on 12-15-2022 Appearance (U) Clear Normal Clear [facility] Comment on above: Performed By: #### 2 4356-8 #### CARLTON Barragan ([id number]) [facility] ([facility] [address] [place] [address] Bilirubin (U) [Mass/Vol] Negative Normal NEGATIVE [facility] Comment on above: Performed By: #### 2 4356-8 #### CARLTON Barragan ([id number]) [facility] ([facility]) [address] [place] [address] 94912 Color (U) Yellow Normal Straw, Yellow [facility] Comment on above: Performed By: #### 2 4356-8 #### CARLTON Barragan ([id number]) [facility] ([facility]) [address] [place] [address] 51465 Glucose Auto test strip (U) [Mass/Vol] Negative Normal NEGATIVE [facility] Comment on above: Performed By: #### 2 4356-8 #### CARLTON Barragan ([id number]) [facility] ([facility] [address] [place] [address] 92018 Ketones (U) [Mass/Vol] Negative Normal NEGATIVE [facility] Comment on above: Performed By: #### 2 4356-8 #### CARLTON Barragan ([id number]) [facility] ([facility] [address] [place] [address] 30571 Leukocyte esterase Auto test strip Ql (U) Negative Normal NEGATIVE [facility] Comment on above: Performed By: #### 2 4356-8 #### CARLTON Barragan ([id number]) [facility] ([facility] [address] [place] [address] 34317 Nitrite Auto test strip Ql (U) Negative Normal NEGATIVE [facility] Comment on above: Performed By: #### 2 4356-8 #### CARLTON Barragan ([id number]) [facility] ([facility] [address] [place] [address] pH (U) 8.0 [pH] Normal 5.0, 5.5, 6.0, 6.5, 7.0, 7.5, 8.0 [facility] Comment on above: Performed By: #### 2 4356-8 #### CARLTON Barragan ([id number]) [facility] ([facility] [address] [place] [address] 45685 Protein (U) [Mass/Vol] Negative Normal NEGATIVE [facility] Comment on above: Performed By: #### 2 435-8 #### CARLTON Barragan ([id number]) [facility] ([facility] [address] [place] [address] 69235 RBC (U) [#/Vol] Negative Normal NEGATIVE [facility] Comment on above: Performed By: #### 2 4356-8 #### CARLTON Barragan ([id number]) [facility] ([facility] [address] [place] [address] 75563 Specific gravity (U) [Rel density] 1.006 Normal 1.005-1.035 [facility] Comment on above: Performed By: #### 2 4356-8 #### CARLTON Barragan ([id number]) [facility] ([facility] [address] [place] [address] 60341 Urobilinogen (U) [Mass/Vol] 4.0 mg/dL Normal <2.0 [facility] Comment on above: Result Comment: Some pigments and medications may cause a false positive urobilinogen. Performed By: #### 2 4356-8 #### CARLTON Barragan ([id number]) [facility] ([facility]) [address] [place] [address] Acute Toxicology Panel, Bloo don 12-14-2022 Acetaminophen [Mass/Vol] ug/mL 10.0 - 30.0 ug/mL [facility] Ethanol [Mass/Vol] mg/dL NINF - 10 mg/dL [facility] Interpretation and review of laboratory results Normal [facility] Salicylates [Mass/Vol] mg/dL 4 - 20 mg/dL [facility] Acute hepatitis 2000 panel ( S)on 12-14-2022 HAV IgM Ql (S) Non-Reactive Normal Nonreactive [facility] Comment on above: Result Comment: Biot in interference may cause falsely decreased results. Patients taking a Biotin dose of up to 5 mg/day should refrain from taking Biotin for 24 hours before sample collection. Providers may contact their local laboratory for further information. Performed By: #### 2 4363-4 #### MERLY Barragan ([id number]) [facility] ([facility]) [address] [place] [address] HBV core IgM Ql (S) Non-Reactive Normal Nonreactive [facility] Comment on above: Result Comment: Resu lts from patients taking biotin supplements or receiving high-dose biotin therapy should be interpreted with caution due to possible interference with this test. Providers may contact their local laboratory for further information. Performed By: #### 2 4363-4 #### MERLY Barragan ([id number]) [facility] ([facility]) [address] [place], [place] [id number] HBV surface Ag IA Ql Non-Reactive Normal Nonreactive [place] Comment on above: Result Comment: Biot in interference may cause falsely decreased results. Patients taking a Biotin dose of up to 5 mg/day should refrain from taking Biotin for 24 hours before sample collection. Providers may contact their local laboratory for further information. Performed By: #### 2 4363-4 #### MERLY Barragan ([id number]) [facility] ([facility]) [address] [place] [address] 02761 HCV Ab Ql (S) Reactive Abnormal Nonreactive [facility] Comment on above: Result Comment: HCV antibody [...] By: #### 2 4363-4 #### MERLY Barragan ([id number]) [facility] ([facility]) [address] [place] [address] CBC W Auto Differential pane l (Bld)on 12-14-2022 Basophils (Bld) [#/Vol] 0.02 10*3/uL [facility] Comment on above: Automated WBC differ ential has been confirmed by manual smear. Basophils/100 WBC (Bld) 0.3 % 0.0 - 2.0 % [facility] Eosinophils (Bld) [#/Vol] 0.08 10*3/uL [facility] Eosinophils/100 WBC (Bld) 1.4 % 0.0 - 6.0 % [facility] Erythrocyte distribution width (RBC) [Ratio] 12.4 % 11.5 - 14.5 % [facility] Hematocrit (Bld) [Volume fraction] 39.4 % 36.0 - 46.0 % [facility] Hemoglobin (Bld) [Mass/Vol] 13.8 g/dL 12.0 - 16.0 g/dL [facility] Immature granulocytes (Bld) [#/Vol] 0.02 10*3/uL [facility] Immature granulocytes/100 WBC (Bld) 0.3 % 0.0 - 0.9 % [facility] Comment on above: Immature Granulocyte Count (IG) includes promyelocytes, myelocytes and metamyelocytes but does not include bands. Percent differential counts (%) should be interpreted in the context of the absolute cell counts (cells/UL). Interpretation and review of laboratory results Abnormal [facility] Lymphocytes (Bld) [#/Vol] 1.92 10*3/uL [facility] Lymphocytes/100 WBC (Bld) 32.6 % 13.0 - 44.0 % [facility] MCH (RBC) [Entitic mass] 34.4 pg High 26.0 - 34.0 pg [facility] MCHC (RBC) [Mass/Vol] 35.0 g/dL 32.0 - 36.0 g/dL [facility] MCV (RBC) [Entitic vol] 98 fL 80 - 100 fL [facility] Monocytes (Bld) [#/Vol] 0.22 10*3/uL [facility] Monocytes/100 WBC (Bld) 3.7 % 2.0 - 10.0 % [facility] Neutrophils (Bld) [#/Vol] 3.63 10*3/uL [facility] Comment on above: Percent differential counts (%) should be interpreted in the context of the absolute cell counts (cells/uL). Neutrophils/100 WBC (Bld) 61.7 % 40.0 - 80.0 % [facility] Nucleated RBC/100 WBC (Bld) [Ratio] 0.0 % [facility] Platelets (Bld) [#/Vol] 89 10*3/uL Low [facility] Comment on above: Platelet count verif ied by smear review. RBC (Bld) [#/Vol] 4.01 10*6/uL [facility] WBC (Bld) [#/Vol] 5.9 10*3/uL [facility] Comprehensive metabolic 2000 panelon 12-14-2022 Albumin BCP dye [Mass/Vol] 4.3 g/dL 3.4 - 5.0 g/dL [facility] ALP [Catalytic activity/Vol] 131 U/L High 33 - 110 U/L [facility] ALT With P-5'-P [Catalytic activity/Vol] 113 U/L High 7 - 45 U/L [facility] Comment on above: Patients treated wit h Sulfasalazine may generate falsely decreased results for ALT. Anion gap [Moles/Vol] 11 mmol/L 10 - 2 0 mmol/L [facility] AST With P-5'-P [Catalytic activity/Vol] 180 U/L High 9 - 39 U/L [facility] Bilirubin [Mass/Vol] 1.0 mg/dL 0.0 - 1 .2 mg/dL [facility] Calcium [Mass/Vol] 9.9 mg/dL 8.6 - 10. 3 mg/dL [facility] Chloride [Moles/Vol] 99 mmol/L 98 - 10 7 mmol/L [facility] CO2 [Moles/Vol] 27 mmol/L 21 - 32 mmol/L [facility] Creatinine [Mass/Vol] 0.68 mg/dL 0.50 - 1.05 mg/dL [facility] GFR/1.73 sq M.predicted MDRD (S/P/Bld) [Vol rate/Area] - PINF [facility] Comment on above: Calculations of jerel mated GFR are performed using the 2020 CKD-EPI Study Refit equation without the race variable for the IDMS-Traceable creatinine methods. https://jasn.asnjournals.org/content/early//ASN.744161 2803 Glucose [Mass/Vol] 81 mg/dL 74 - 99 mg/dL [facility] Interpretation and review of laboratory results Abnormal [facility] Potassium [Moles/Vol] 4.2 mmol/L 3.5 - 5.3 mmol/L [facility] Protein [Mass/Vol] 8.3 g/dL High 6.4 - 8.2 g/dL [facility] Sodium [Moles/Vol] 133 mmol/L Low 136 - 145 mmol/L [facility] Urea nitrogen [Mass/Vol] 10 mg/dL 6 - 23 mg/dL [facility] Albumin BCP dye [Mass/Vol] 4.2 g/dL Normal 3.4-5.0 [facility] Comment on above: Performed By: #### 2 4323-8 #### CARLTON Barragan ([id number]) [facility] ([facility]) [address] [place] [address] ALP [Catalytic activity/Vol] 126 U/L High 33-110 [facility] Comment on above: Performed By: #### 2 4323-8 #### CARLTON Barragan ([id number]) [facility] ([facility]) [address] [place] [address] ALT With P-5'-P [Catalytic activity/Vol] 109 U/L High 7-45 [facility] Comment on above: Result Comment: Tran ents treated with Sulfasalazine may generate falsely decreased results for ALT. Performed By: #### 2 4323-8 #### CARLTON Barragan ([id number]) [facility] ([facility]) [address] [place] [address] 22026 Anion gap [Moles/Vol] 12 mmol/L Normal 10-20 [facility] Comment on above: Performed By: #### 2 4323-8 #### CARLTON Barragan ([id number]) [facility] ([facility]) [address] [place] [address] 50230 AST With P-5'-P [Catalytic activity/Vol] 172 U/L High 9-39 [facility] Comment on above: Result Comment: MODE RATE HEMOLYSIS DETECTED. The result may be falsely elevated due to hemolysis or other interferents. Clinical correlation is recommended. Repeat testing may be considered. Performed By: #### 2 4323-8 #### CARLTON Barragan ([id number]) [facility] ([facility]) [address] [place] [address] 02896 Bilirubin [Mass/Vol] 1.3 mg/dL High 0.0-1.2 [facility] Comment on above: Performed By: #### 2 4323-8 #### CARLTON Barragan ([id number]) [facility] ([facility]) [address] [place] [address] 78743 Calcium [Mass/Vol] 10.0 mg/dL Normal 8.6-10.[address] [facility] Comment on above: Performed By: #### 2 4323-8 #### CARLTON Barragan ([id number]) [facility] ([facility]) [address] [place] [address] 43613 Chloride [Moles/Vol] 100 mmol/L Normal 98-107 [facility] Comment on above: Performed By: #### 2 4323-8 #### CARLTON Barragan ([id number]) [facility] ([facility]) [address] [place] [address] 33868 CO2 [Moles/Vol] 26 mmol/L Normal 21-32 [facility] Comment on above: Performed By: #### 2 4323-8 #### CARLTON Barragan ([id number]) [facility] ([facility]) [address] [place] [address] 56175 Creatinine [Mass/Vol] 0.59 mg/dL Normal 0.50-1.05 [facility] Comment on above: Performed By: #### 2 4323-8 #### CARLTON Barragan ([id number]) [facility] ([facility]) [address] [place] [address] 32148 GFR/1.73 sq M.predicted MDRD (S/P/Bld) [Vol rate/Area] mL/min/{1.73_m2} Normal >60 [facility] Comment on above: Result Comment: Calc ulations of estimated GFR are performed using the 2020 CKD-EPI Study Refit equation without the race variable for the IDMS-Traceable creatinine methods. https://jasn.asnjournals.org/content/early/ASN.807639 4820 Performed By: #### 2 4323-8 #### CARLTON Barragan ([id number]) [facility] ([facility]) [address] [place] [address] 81389 Glucose [Mass/Vol] 104 mg/dL High 74-[address] [facility] Comment on above: Performed By: #### 2 4323-8 #### CARLTON Barragan ([id number]) [facility] ([facility]) [address] [place] [address] 93997 Potassium [Moles/Vol] 5.4 mmol/L High 3.5-5.3 [facility] Comment on above: Result Comment: MODE RATE HEMOLYSIS DETECTED. The result may be falsely elevated due to hemolysis or other interferents. Clinical correlation is recommended. Repeat testing may be considered. Performed By: #### 2 4323-8 #### CARLTON Barragan ([id number]) [facility] ([facility]) [address] [place] [address] 24119 Protein [Mass/Vol] 8.3 g/dL High 6.4-8.[address] [facility] Comment on above: Performed By: #### 2 4323-8 #### CARLTON Barragan ([id number]) [facility] ([facility]) [address] [place] [address] 65122 Sodium [Moles/Vol] 133 mmol/L Low 136-[address] [facility] Comment on above: Performed By: #### 2 4323-8 #### CARLTON Barragan ([id number]) [facility] ([facility]) [address] [place] [address] 08285 Urea nitrogen [Mass/Vol] 10 mg/dL Normal 6-23 [facility] Comment on above: Performed By: #### 2 4323-8 #### CARLTON Barragan ([id number]) [facility] ([facility]) [address] [place] [address] 66531 Drug Screen, Urineon 023 Amphetamines Screen Ql (U) Negative Presumptive Negative [facility] Comment on above: CUTOFF LEVEL: 500 NG /ML Cross-reactivity has been reported with high concentrations of the following drugs: buproprion, chloroquine, chlorpromazine, ephedrine, mephentermine, fenfluramine, phentermine, phenylpropanolamine, pseudoephedrine, and propranolol. Barbiturates Screen Ql (U) Negative Presumptive Negative [facility] Comment on above: CUTOFF LEVEL: 200 NG /ML Benzodiazepines Ql (U) Positive Abnormal Presumptive Negative [facility] Comment on above: CUTOFF LEVEL: 200 NG /ML Benzoylecgonine Screen Ql (U) Negative Presumptive Negative [facility] Comment on above: CUTOFF LEVEL: 150 NG /ML Cannabinoids Screen Ql (U) Negative Presumptive Negative [facility] Comment on above: CUTOFF LEVEL: 50 NG/ ML fentaNYL+Norfentanyl Screen Ql (U) Negative Presumptive Negative [facility] Comment on above: CUTOFF LEVEL: 5 NG/M L Interpretation and review of laboratory results Abnormal [facility] Opiates Screen Ql (U) Negative Presum ptive Negative [facility] Comment on above: CUTOFF LEVEL: 300 NG /ML The opiate screen does not detect fentanyl, meperidine, or tramadol. Oxycodone is not consistently detected (refer to Oxycodone Screen, Urine result). oxyCODONE+oxyMORphone Screen Ql (U) Negative Presumptive Negative [facility] Comment on above: CUTOFF LEVEL: 100 NG /ML This test will accurately detect both oxycodone and oxymorphone. Phencyclidine Ql (U) Negative Presump tive Negative [facility] Comment on above: CUTOFF LEVEL: 25 NG/ ML Cross-reactivity has been reported with dextromethorphan. Drug screen results are presumptive and should not be used to assess compliance with prescribed medication. Contact the performing [facility] laboratory to add-on definitive confirmatory testing [...] be directed to the laboratory medical directors. [facility] Ethanolon 12-14-2022 Ethanol [Mass/Vol] mg/dL Normal <=[address] [facility] Comment on above: Result Comment: For medical use only. Performed By: #### 5 643-2 #### CARLTON Barragan ([id number]) [facility] ([facility]) [address] [place] [address] 11817 HCG ( test) IA.rapi d Ql (U)Ordered By: Isabelle Lomeli on 12-14-2022 HCG ( test) Ql (U) Negative NEGATIVE [facility] Interpretation and review of laboratory results Normal [facility] HIV 1+2 Ab+HIV1 p24 Agon HIV 1+2 Ab+HIV1 p24 Ag IA Ql Non-Reactive Normal Nonreactive [facility] Comment on above: Order Comment: HIV A g/Ab screen is performed using the [employer] HIV Ag/Ab Combo assay which detects the presence of HIV p24 antigen as well as antibodies to HIV-1 (Group M and O) and HIV-2. No laboratory evidence of HIV infection. If acute HIV infection is suspected, consider testing for HIV RNA by PCR (viral load). Performed By: #### 5 6888-1 #### MERLY Barragan ([id number]) [facility] ([facility]) [id number] [place], [place] [id number] No Panel Informationon 12-14 [facility] RBC shape Nom (Bld)on 2022 RBC morphology finding Nom (Bld) No significant RBC morphology present [facility] Reagin Abon 12-14-2022 Reagin Ab RPR Ql (S) Non-Reactive Normal Nonreactive U [facility] Comment on above: Performed By: #### 2 4323-8 #### CARLTON Barragan ([id number]) [facility] ([facility]) [address] [place] [address] Urinalysis complete panel (U )on 12-14-2022 Appearance (U) Clear Clear [facility] Bilirubin (U) [Mass/Vol] Negative NEGATIVE [facility] Color (U) Yellow Straw, Yellow [facility] Glucose Auto test strip (U) [Mass/Vol] Negative NEGATIVE mg/dL [facility] Interpretation and review of laboratory results Abnormal [facility] Ketones (U) [Mass/Vol] Negative NEGATIVE mg/dL [facility] Leukocyte esterase Auto test strip Ql (U) Negative NEGATIVE [facility] Nitrite Auto test strip Ql (U) Negative NEGATIVE [facility] pH (U) 8.0 [pH] 5.0, 5.5, 6.0, 6.5, 7.0, 7.5, 8.0 [facility] Protein (U) [Mass/Vol] Negative NEGATIVE mg/dL [facility] RBC (U) [#/Vol] Negative NEGATIVE [facility] Specific gravity (U) [Rel density] 1.006 1.005 - 1.035 [facility] Urobilinogen (U) [Mass/Vol] 4.0 mg/dL Abnormal NINF - 2.0 mg/dL [facility] Comment on above: Some pigments and me dications may cause a false positive urobilinogen. [facility] ED Note-Physicianon 12-14-19 23 ED Note-Physician [id number] F Normal [facility] BUPRENORPHINE SCREEN TO CONF IRM,URINEon 12-12-2022 Buprenorphine Screen Ql (U) Negative Normal Cutoff 5 [facility] Comment on above: Performed By: #### B UPRS #### Cerecor UpptalkTALISHA) ([id number]) [address] [place], [place] [id number] Drug screen comment (U) [Interp] See Note Normal [facility] Comment on above: Result Comment: INTE RPRETIVE [...] not valid for forensic use. Performed By: [employer] [address] [place] [address] Asphalt Roller Person: Issa Waller MD, PhD CLIA Number: [id number] Performed By: #### B UPRS #### TheCityGameTALISHA) ([id number]) [address] [place] [address] DRUG SCREEN,URINEon 12-13-19 Amphetamines Screen Ql (U) Negative Normal Presumptive Negative [facility] Comment on above: Order Comment: Drug screen results are presumptive and should not be used to assess compliance with prescribed medication. Contact the performing [facility] laboratory to add-on definitive confirmatory testing [...] phenylpropanolamine, pseudoephedrine, and propranolol. Performed By: #### Sadiq MARSHALL3 #### CARLTON Barragan ([id number]) [facility] ([facility]) [address] [place] [address] Barbiturates Screen Ql (U) Negative Normal Presumptive Negative [facility] Comment on above: Order Comment: Drug screen results are presumptive and should not be used to assess compliance with prescribed medication. Contact the performing [facility] laboratory to add-on definitive confirmatory testing [...] By: #### D RUG3 #### CARLTON Barragan ([id number]) [facility] ([facility]) [address] [place] [address] Benzodiazepines Ql (U) Negative Normal Presumptive Negative [facility] Comment on above: Order Comment: Drug screen results are presumptive and should not be used to assess compliance with prescribed medication. Contact the performing [facility] laboratory to add-on definitive confirmatory testing [...] By: #### D RUG3 #### CARLTON Barragan ([id number]) [facility] ([facility]) [address] [place], [place] [phone] Benzoylecgonine Screen Ql (U) Negative Normal Presumptive Negative [facility] Comment on above: Order Comment: Drug screen results are presumptive and should not be used to assess compliance with prescribed medication. Contact the performing [facility] laboratory to add-on definitive confirmatory testing [...] By: #### D RUG3 #### CARLTON Barragan ([id number]) [facility] ([facility]) [address] [place] [address] Cannabinoids Screen Ql (U) Negative Normal Presumptive Negative [facility] Comment on above: Order Comment: Drug screen results are presumptive and should not be used to assess compliance with prescribed medication. Contact the performing [facility] laboratory to add-on definitive confirmatory testing [...] FF LEVEL: 50 NG/ML Performed By: #### Sadiq RUG3 #### CARLTON Barragan ([id number]) [facility] ([facility]) [address] [place] [address] fentaNYL+Norfentanyl Screen Ql (U) Negative Normal Presumptive Negative [facility] Comment on above: Order Comment: Drug screen results are presumptive and should not be used to assess compliance with prescribed medication. Contact the performing [facility] laboratory to add-on definitive confirmatory testing [...] FF LEVEL: 5 NG/ML Performed By: #### Sadiq RUG3 #### CARLTON Barragan ([id number]) [facility] ([facility]) [address] [place], [place] [phone] Opiates Screen Ql (U) Negative Normal Presum ptive Negative [facility] Comment on above: Order Comment: Drug screen results are presumptive and should not be used to assess compliance with prescribed medication. Contact the performing [facility] laboratory to add-on definitive confirmatory testing [...] Oxycodone Screen, Urine result). Performed By: #### Sadiq MARSHALL3 #### CARLTON Barragan ([id number]) [facility] ([facility]) [address] [place], [place] [phone] oxyCODONE+oxyMORphone Screen Ql (U) Negative Normal Presumptive Negative [facility] Comment on above: Order Comment: Drug screen results are presumptive and should not be used to assess compliance with prescribed medication. Contact the performing [facility] laboratory to add-on definitive confirmatory testing [...] both oxycodone and oxymorphone. Performed By: #### Sadiq MARSHALL3 #### CARLTON Barragan ([id number]) [facility] ([facility]) [address] [place] [address] Phencyclidine Ql (U) Negative Normal Presump tive Negative [facility] Comment on above: Order Comment: Drug screen results are presumptive and should not be used to assess compliance with prescribed medication. Contact the performing [facility] laboratory to add-on definitive confirmatory testing [...] By: #### D RUG3 #### CARLTON Barragan ([id number]) [facility] ([facility]) [address] [place] [address] Gabapentinon 12-12-2022 Gabapentin (U) [Mass/Vol] 242.4 ug/mL Normal [facility] Comment on above: Result Comment: INTE RPRETIVE [...] developed and its performance characteristics determined by [employer]. It has not been cleared or approved by the [place] Food and Drug Administration. This test was performed in a CLIA certified laboratory and is intended for clinical purposes. Performed By: [employer] [address] [place] [address] Asphalt Roller Person: Issa Waller MD, PhD CLIA Number: [id number] Performed By: #### 2 4323-8 #### CARLTON Barragan ([id number]) [facility] ([facility]) [address] [place] [address] Acetaminophen [Mass/volume] in Serum or PlasmaOrdered By: Ari Aguero on 12-11-2022 Acetaminophen [Mass/Vol] 0.3 ug/mL Low 10.0-30.0 [facility] Comment on above: Result Comment: PERF ORMED BY: [place] [address] PATHOLOGIST DIRECTOR OF GLOBAL TALENT LEE CARDOSO M.D. Performed By: #### C MP, LIPASE, CBC #### [address] Alanine aminotransferase [En zymatic activity/volume] in Serum or PlasmaOrdered By: Ari Aguero on 12-11-2022 ALT [Catalytic activity/Vol] 125 U/L High 7-52 [facility] Comment on above: Performed By: #### C MP, LIPASE, CBC #### [address] Albumin [Mass/volume] in Ser um or Plasma by Bromocresol green (BCG) dye binding methoOrdered By: Ari Aguero on 12-11-2022 Albumin BCG dye [Mass/Vol] 3.8 g/dL 3.5-5.7 [facility] Alkaline phosphatase [Enzyma tic activity/volume] in Serum or PlasmaOrdered By: Ari Aguero on 12-11-2022 ALP [Catalytic activity/Vol] 132 U/L High 34-104 [facility] Comment on above: Performed By: #### C MP, LIPASE, CBC #### [address] Amphetamine Screen Ql (U)Ord ered By: Ari Aguero on 12-11-2022 Amphetamines Ql (U) Negative Negative [facility] Aspartate aminotransferase [ Enzymatic activity/volume] in Serum or PlasmaOrdered By: Ari Aguero on 12-11-2022 AST [Catalytic activity/Vol] 223 U/L High 13-39 [facility] Comment on above: Performed By: #### C MP, LIPASE, CBC #### [facility] [address] [place] [address] Automated basophil %Ordered By: Ari Aguero on 12-11-2022 Basophils/100 WBC (Bld) 0.7 % Normal . [facility] Comment on above: Performed By: #### C MP, LIPASE, CBC #### [facility] [address] [place] [address] Automated basophil countOrde red By: Ari Aguero on 12-11-2022 Basophils (Bld) [#/Vol] 0.0 10*3/uL Normal 0.0-0.2 [facility] Comment on above: Result Comment: PERF ORMED BY: [place] [address] PATHOLOGIST DIRECTOR OF GLOBAL TALENT LEE CARDOSO M.D. Performed By: #### C MP, LIPASE, CBC #### [address] Automated blood monocyte cou ntOrdered By: Ari Aguero on 12-11-2022 Monocytes (Bld) [#/Vol] 0.2 10*3/uL Normal 0.0-0.8 [facility] Comment on above: Performed By: #### C MP, LIPASE, CBC #### [address] Automated eosinophil %Ordere d By: Ari Aguero on 12-11-2022 Eosinophils/100 WBC (Bld) 0.8 % Normal . [facility] Comment on above: Performed By: #### C MP, LIPASE, CBC #### [address] Automated eosinophil countOr dered By: Ari Aguero on 12-11-2022 Eosinophils (Bld) [#/Vol] 0.0 10*3/uL Normal 0.0-0.45 [facility] Comment on above: Performed By: #### C MP, LIPASE, CBC #### [address] Automated monocyte %Ordered By: Ari Aguero on 12-11-2022 Monocytes/100 WBC (Bld) 5.9 % Normal . [facility] Comment on above: Performed By: #### C MP, LIPASE, CBC #### [address] Automated neutrophil %Ordere d By: Ari Aguero on 12-11-2022 Neutrophils/100 WBC (Bld) 42.1 % Normal . [facility] Comment on above: Performed By: #### C MP, LIPASE, CBC #### [address] Automated urine color determ inationOrdered By: Ari Aguero on 12-11-2022 Color (U) Yellow Normal Yellow [facility] Comment on above: Order Comment: Name Collection Type:: Clean-Voided Midstream Performed By: #### E ODALIS, MG, CMP, CBC #### [facility] [address] [place] [address] [place] Barbiturates [Presence] in U rine by Screen methodOrdered By: Ari Aguero on 12-11-2022 Barbiturates Screen Ql (U) Negative Negative [facility] Benzodiazepines Screen Ql (U )Ordered By: Ari Aguero on 12-11-2022 Benzodiazepines Ql (U) Negative Negative [facility] Benzoylecgonine [Presence] i n Urine by Screen methodOrdered By: Ari Aguero on 12-11-2022 Benzoylecgonine Screen Ql (U) Negative Negative [facility] Bilirubin Test strip Ql (U)O rdered By: Ari Aguero on 12-11-2022 Bilirubin Ql (U) Negative Negative [facility] Bilirubin.total [Mass/volume ] in Serum or PlasmaOrdered By: Ari Aguero on 12-11-2022 Bilirubin [Mass/Vol] 0.5 mg/dL Normal 0.3-1.0 [facility] Comment on above: Performed By: #### C MP, LIPASE, CBC #### [facility] [address] Calcium [Mass/volume] in Ser um or PlasmaOrdered By: Ari Aguero on 12-11-2022 Calcium [Mass/Vol] 8.5 mg/dL Low 8.6-10.3 [facility] Comment on above: Performed By: #### C MP, LIPASE, CBC #### [facility] [address] [place] [address] [place] Cannabinoids [Presence] in U rine by Screen methodOrdered By: Ari Aguero on 12-11-2022 Cannabinoids Screen Ql (U) Negative Negative [facility] Comment on above: These are unconfirme d results and should not be used for legal purposes. Drug Cut-Off Concentration: AMPH 1000 ng/mL JANELL 200 ng/mL JAMES 200 ng/mL COCM 300 ng/mL OP 300 ng/mL PCP 25 ng/mL THC 20 ng/mL Carbon dioxide, total [Moles /volume] in Serum or PlasmaOrdered By: Ari Aguero on 12-11-2022 CO2 [Moles/Vol] 23.7 mmol/L Normal 21.0-31.0 [facility] Comment on above: Performed By: #### C MP, LIPASE, CBC #### [address] Chloride [Moles/volume] in S marbella or PlasmaOrdered By: Ari Pittszi on 12-11-2022 Chloride [Moles/Vol] 109 mmol/L High 98-107 [facility] Comment on above: Performed By: #### C MP, LIPASE, CBC #### [address] Complete Blood Count Auto Di ffon 12-11-2022 Mean Corpuscular HGB Conc 33.5 g/dL Normal 32.0-35.0 [facility] Comment on above: Performed By: #### C MP, LIPASE, CBC #### [address] Monocytes/100 WBC (Bld) 18.99 % Normal 0.00-20.00 [facility] Comment on above: Performed By: #### C MP, LIPASE, CBC #### [address] NRBC% 0.3 /100{WBC} Normal 0-0.5 [facility] Comment on above: Performed By: #### C MP, LIPASE, CBC #### [address] Comprehensive Metabolic Pane mary beth 12-11-2022 Albumin [Mass/Vol] 3.8 g/dL Normal 3.5-5.7 [facility] Comment on above: Performed By: #### C MP, LIPASE, CBC #### [address] Creatinine Clr Calc Pharmacy 165.10 Normal [facility] Comment on above: Result Comment: PERF ORMED BY: [place] [address] PATHOLOGIST DIRECTOR OF GLOBAL TALENT LEE CARDOSO M.D. Performed By: #### C MP, LIPASE, CBC #### [address] GFR/1.73 sq M.predicted MDRD (S/P/Bld) [Vol rate/Area] mL/min/{1.73_m2} Normal [facility] Comment on above: Performed By: #### C MP, LIPASE, CBC #### [address] Creatinine [Mass/volume] in Serum or PlasmaOrdered By: Ari Aguero on 12-11-2022 Creatinine [Mass/Vol] 0.51 mg/dL Low 0.60-1.20 [facility] Comment on above: Performed By: #### C MP, LIPASE, CBC #### [address] Discharge Instructionson Discharge Instructions [id number] Normal [facility] Drug Screen,Urineon 12-12-19 23 Amphetamine Screen,Urine Negative Normal Negative [facility] Comment on above: Performed By: #### C MP, LIPASE, CBC #### [address] Barbiturate Screen,Urine Negative Normal Negative [facility] Comment on above: Performed By: #### C MP, LIPASE, CBC #### [address] Benzodiazepines Screen,Urine Negative Normal Negative [facility] Comment on above: Performed By: #### C MP, LIPASE, CBC #### [address] Cannabinoid Screen,Urine Negative Normal Negative [facility] Comment on above: Result Comment: Thes e are unconfirmed results and should not be used for legal purposes. Drug Cut-Off Concentration: AMPH 1000 ng/mL JANELL 200 ng/mL JAMES 200 ng/mL COCM 300 ng/mL OP 300 ng/mL PCP 25 ng/mL THC 20 ng/mL PERFORMED BY: [place] [address] PATHOLOGIST DIRECTOR OF GLOBAL TALENT LEE CARDOSO M.D. Performed By: #### C MP, LIPASE, CBC #### [address] Cocaine Screen,Urine Negative Normal Negative [facility] Comment on above: Performed By: #### C MP, LIPASE, CBC #### [address] Opiate Screen,Urine Negative Normal Negative [facility] Comment on above: Performed By: #### C MP, LIPASE, CBC #### [address] Phencyclidine Screen,Urine Negative Normal Negative [facility] Comment on above: Performed By: #### C MP, LIPASE, CBC #### [address] Erythrocyte distribution wid th [Ratio] by Automated countOrdered By: Ari Aguero on 12-11-2022 Erythrocyte distribution width (RBC) [Ratio] 14.3 % Normal 11.9-15.3 [facility] Comment on above: Performed By: #### C MP, LIPASE, CBC #### [address] Erythrocytes [#/volume] in B lood by Automated countOrdered By: Ari Aguero on 12-11-2022 RBC (Bld) [#/Vol] 4.06 10*6/uL Normal 3.60-5.00 [facility] Comment on above: Performed By: #### C MP, LIPASE, CBC #### [address] Ethanol [Mass/volume] in Ser um or PlasmaOrdered By: Ari Aguero on 12-11-2022 Ethanol [Mass/Vol] 287 mg/dL Normal [facility] Comment on above: Performed By: #### C MP, LIPASE, CBC #### [address] Ethanol [Mass/Vol] 0.287 % [facility] Ethyl Alcohol Profileon 11-13 Percent Ethanol 0.287 % Normal [facility] Comment on above: Result Comment: PERF ORMED BY: [place] [address] PATHOLOGIST DIRECTOR OF GLOBAL TALENT LEE CARDOSO M.D. Performed By: #### C MP, LIPASE, CBC #### [facility] [address] [place] [address] [place] Glucose [Mass/volume] in Ser um or PlasmaOrdered By: Ari Aguero on 12-11-2022 Glucose [Mass/Vol] 93 mg/dL Normal 70-100 [facility] Comment on above: ADA recommended refe rence rangeRandom Glucose Reference Range is dependent on time and content of last meal. Glucose of more than 200 mg/dL in a nonstressed, ambulatory subject supports the diagnosis of Diabetes Mellitus. Result Comment: [place] om Glucose Reference Range is dependent on time and content of last meal. Glucose of more than 200 mg/dL in a nonstressed, ambulatory subject supports the diagnosis of Diabetes Mellitus. ADA recommended reference range Performed By: #### C MP, LIPASE, CBC #### [address] [address] [facility] HCG ( test) [place].rapi d Ql (U)Ordered By: Ari Aguero on 12-11-2022 HCG ( test) Ql (U) Negative [facility] HCG,Urineon 12-11-2022 Beta HCG ( test) Ql (U) Negative Normal [facility] Comment on above: Order Comment: Name Collection Type:: Clean-Voided Midstream Result Comment: PERF ORMED BY: [place] [address] PATHOLOGIST DIRECTOR OF GLOBAL TALENT LEE CARDOSO M.D. Performed By: #### E ODALIS, MG, CMP, CBC #### [facility] [address] [place] [address] [facility] Hematocrit [Volume Fraction] of Blood by Automated countOrdered By: Ari Aguero on 12-11-2022 Hematocrit (Bld) [Volume fraction] 41.0 % Normal 34.0-46.4 [facility] Comment on above: Performed By: #### C MP, LIPASE, CBC #### [address] Hemoglobin [Mass/volume] in BloodOrdered By: Ari Aguero on 12-11-2022 Hemoglobin (Bld) [Mass/Vol] 13.8 g/dL Normal 11.8-15.4 [facility] Comment on above: Performed By: #### C MP, LIPASE, CBC #### [address] Ketones Auto test strip (U) [Mass/Vol]Ordered By: Ari Aguero on 12-11-2022 Ketones (U) [Mass/Vol] Negative Negative [facility] Leukocytes [#/volume] correc jose for nucleated erythrocytes in Blood by Automated counOrdered By: Ari Aguero on 12-11-2022 WBC corrected for nucl RBC Auto (Bld) [#/Vol] 3.7 10*3/uL 3.8-11.6 [facility] Leukocytes [#/volume] in Blo od by Automated countOrdered By: Ari Aguero on 12-11-2022 WBC (Bld) [#/Vol] 3.7 10*3/uL Low 3.8-11.6 [facility] Comment on above: Performed By: #### C MP, LIPASE, CBC #### [address] Lymphocytes [#/volume] in Bl ood by Automated countOrdered By: Ari Aguero on 12-11-2022 Lymphocytes (Bld) [#/Vol] 1.9 10*3/uL Normal 1.00-4.8 [facility] Comment on above: Performed By: #### C MP, LIPASE, CBC #### [address] Lymphocytes/100 leukocytes i n Blood by Automated countOrdered By: Ari Aguero on 12-11-2022 Lymphocytes/100 WBC (Bld) 50.5 % Normal . [facility] Comment on above: Performed By: #### C MP, LIPASE, CBC #### [address] [place] [address] [place] MCH [Entitic mass] by Automa jose countOrdered By: Ari Aguero on 12-11-2022 MCH (RBC) [Entitic mass] 33.9 pg Normal 24.7-34.3 [facility] Comment on above: Performed By: #### C MP, LIPASE, CBC #### [facility] [address] [place] [address] MCHC Auto (RBC) [Mass/Vol]Or dered By: Ari Aguero on 12-11-2022 MCHC (RBC) [Mass/Vol] 33.5 g/dL 32.0-35.0 [facility] MCV [Entitic volume] by Auto mated countOrdered By: Ari Aguero on 12-11-2022 MCV (RBC) [Entitic vol] 101.1 fL High 80-100 [facility] Comment on above: Performed By: #### C MP, LIPASE, CBC #### [facility] [address] [place] [address] Monocyte distribution width [Entitic volume] in Blood by AutomatedOrdered By: Ari Aguero on 12-11-2022 Monocyte distribution width Auto (Bld) [Entitic vol] 18.99 % 0.00-20.00 [facility] Neutrophils [#/volume] in Bl ood by Automated countOrdered By: Ari Aguero on 12-11-2022 Neutrophils (Bld) [#/Vol] 1.6 10*3/uL Low 1.8-7.7 [facility] Comment on above: Performed By: #### C MP, LIPASE, CBC #### [facility] [address] [place] [address] Nitrite Test strip Ql (U)Ord ered By: Ari Aguero on 12-11-2022 Nitrite Ql (U) Negative Negative [facility] No Panel InformationOrdered By: Ari Aguero on 12-11-2022 Estimated GFR (CKD-EPI) > 60.0 mL/Min [facility] Creatinine Clearance (Chem 165.10 [facility] Nucleated erythrocytes [Pres ence] in Blood by Automated countOrdered By: Ari Aguero on 12-11-2022 Nucleated RBC Auto Ql (Bld) 0.3 /100{WBC} 0-0.5 [facility] Opiates [Presence] in Urine by Screen methodOrdered By: Ari Aguero on 12-11-2022 Opiates Screen Ql (U) Negative Negative [facility] Phencyclidine Screen Ql (U)O rdered By: Ari Aguero on 12-11-2022 Phencyclidine Ql (U) Negative Negative [facility] Platelet mean volume [Entiti c volume] in Blood by Automated countOrdered By: Ari Aguero on 12-11-2022 Platelet mean volume (Bld) [Entitic vol] 9.0 fL Normal 6.3-10.7 [facility] Comment on above: Performed By: #### C MP, LIPASE, CBC #### [facility] [address] [place] [address] Platelets [#/volume] in Bloo d by Automated countOrdered By: Ari Aguero on 12-11-2022 Platelets (Bld) [#/Vol] 103 10*3/uL Low 150-450 [facility] Comment on above: Performed By: #### C MP, LIPASE, CBC #### [facility] [address] [place] [address] Potassium [Moles/volume] in Serum or PlasmaOrdered By: Ari Aguero on 12-11-2022 Potassium [Moles/Vol] 4.0 mmol/L Normal 3.5-5.1 [facility] Comment on above: Performed By: #### C MP, LIPASE, CBC #### [facility] [address] [place] [address] Protein Auto test strip (U) [Mass/Vol]Ordered By: Ari Aguero on 12-11-2022 Protein (U) [Mass/Vol] Negative Negative [facility] Protein [Mass/volume] in Ser um or PlasmaOrdered By: Ari Aguero on 12-11-2022 Protein [Mass/Vol] 7.0 g/dL Normal 6.4-8.9 [facility] Comment on above: Performed By: #### C MP, LIPASE, CBC #### [address] Salicylateon 12-11-2022 Salicylate < 1.5 Low 15.0-30.0 [facility] Comment on above: Result Comment: Tran ents treated with Sulfasalazine may generate a false high result for Salicylate. Performed By: #### C MP, LIPASE, CBC #### [address] Salicylates [Mass/volume] in Serum or PlasmaOrdered By: Ari Aguero on 12-11-2022 Salicylates [Mass/Vol] mg/dL 15.0-30.0 [facility] Comment on above: Patients treated wit h Sulfasalazine may generate a false high result for Salicylate. Serum globulin measurement b y calculation (mass/volume)Ordered By: Ari Aguero on 12-11-2022 Globulin (S) [Mass/Vol] 3.2 g/dL [facility] Comment on above: Performed By: #### C MP, LIPASE, CBC #### [address] Serum or plasma albumin/glob ulin mass ratioOrdered By: Ari Aguero on 12-11-2022 Albumin/Globulin [Mass ratio] 1.2 {ratio} [facility] Comment on above: Performed By: #### C MP, LIPASE, CBC #### [address] Serum or plasma anion gap de terminationOrdered By: Ari Aguero on 12-11-2022 Anion gap [Moles/Vol] 13.3 mmol/L Normal 6.0-15.0 [facility] Comment on above: Performed By: #### C MP, LIPASE, CBC #### [address] Sodium [Moles/volume] in Ser um or PlasmaOrdered By: Ari Aguero on 12-11-2022 Sodium [Moles/Vol] 142 mmol/L Normal 136-145 [facility] Comment on above: Performed By: #### C MP, LIPASE, CBC #### [address] Specific gravity Auto test s trip (U) [Rel density]Ordered By: Ari More on 12-11-2022 Specific gravity (U) [Rel density] 1.011 1.001-1.030 [facility] Urea nitrogen [Mass/volume] in Serum or PlasmaOrdered By: Ari Aguero on 12-11-2022 Urea nitrogen [Mass/Vol] 7 mg/dL Normal -25 [facility] Comment on above: Performed By: #### C MP, LIPASE, CBC #### [address] Urinalysison 12-11-2022 Appearance (U) Clear Normal Clear [facility] Comment on above: Order Comment: Name Collection Type:: Clean-Voided Midstream Performed By: #### E ODALIS, MG, CMP, CBC #### [address] Bilirubin,Urine Negative Normal Negative [facility] Comment on above: Order Comment: Name Collection Type:: Clean-Voided Midstream Performed By: #### E ODALIS, MG, CMP, CBC #### [address] Glucose Ql (U) Normal Normal Normal [facility] Comment on above: Order Comment: Name Collection Type:: Clean-Voided Midstream Performed By: #### E ODALIS, MG, CMP, CBC #### [address] Ketones Ql (U) Negative Normal Negative [facility] Comment on above: Order Comment: Name Collection Type:: Clean-Voided Midstream Performed By: #### E ODALIS, MG, CMP, CBC #### [address] Leukocyte esterase Test strip Ql (U) Negative Normal Negative [facility] Comment on above: Order Comment: Name Collection Type:: Clean-Voided Midstream Performed By: #### E ODALIS, MG, CMP, CBC #### [facility] [address] [place] [address] [place] Nitrite,Urine Negative Normal Negative [facility] Comment on above: Order Comment: Name Collection Type:: Clean-Voided Midstream Performed By: #### E ODALIS, MG, CMP, CBC #### [facility] [address] Occult Blood,Urine Negative Normal Negative [facility] Comment on above: Order Comment: Name Collection Type:: Clean-Voided Midstream Performed By: #### E ODALIS, MG, CMP, CBC #### [facility] [address] Protein,Urine Negative Normal Negative [facility] Comment on above: Order Comment: Name Collection Type:: Clean-Voided Midstream Performed By: #### E ODALIS, MG, CMP, CBC #### [address] Specificy [place],Urine 1.011 Normal 1.001-1.030 [facility] Comment on above: Order Comment: Name Collection Type:: Clean-Voided Midstream Performed By: #### E ODALIS, MG, CMP, CBC #### [facility] [address] [place] [address] Urobilinogen,Urine Normal Normal Normal [facility] Comment on above: Order Comment: Name Collection Type:: Clean-Voided Midstream Performed By: #### E ODALIS, MG, CMP, CBC #### [address] Urine clarity by refractomet ry automatedOrdered By: Ari Aguero on 12-11-2022 Clarity Refractometry automated (U) Clear Clear [facility] Urine glucose measurement by automated test strip (mass/volume)Ordered By: Ari Aguero on 12-11-2022 Glucose Auto test strip (U) [Mass/Vol] Normal mg/dL Normal [facility] Urine hemoglobin detection b y automated test stripOrdered By: Ari Aguero on 12-11-2022 Hemoglobin Auto test strip Ql (U) Negative Negative [facility] Urine leukocyte esterase det ection by automated test stripOrdered By: Ari Aguero on 12-11-2022 Leukocyte esterase Auto test strip Ql (U) Negative Negative [facility] Urine pH measurement by auto mated test stripOrdered By: Ari Aguero on 12-11-2022 pH (U) 6.0 [pH] Normal 5.0-9.0 [facility] Comment on above: Order Comment: Name Collection Type:: Clean-Voided Midstream Performed By: #### E ODALIS, MG, CMP, CBC #### [facility] [address] Urobilinogen Auto test strip (U) [Mass/Vol]Ordered By: Ari Aguero on 12-11-2022 Urobilinogen (U) [Mass/Vol] Normal mg/dL Normal [facility] Vaccinationson 12-11-2022 Vaccinations [id number] FF Normal [facility] Comment on above: Other Comment: wrong subject Valuables Checkliston 2022 Valuables Checklist [id number]#1.00TI FF Normal [facility] Auto Diffon 12-10-2022 Basophils/100 WBC (Bld) 2.2 % High 0.0-2.0 [facility] Comment on above: Order Comment: Order Added by Discern Expert. Performed By: #### 2 260930, 24519640, 39200122, 8310450, 1854005, 67226705, 90809039, 7124210, 2496719, 0788732 ####[facility] [address] [place] [address] Basophils/Leukocytes Auto (Bld) [Pure # fraction] 0.1 E9/L Normal 0.0-0.2 [facility] Comment on above: Order Comment: Order Added by Discern Expert. Performed By: #### 2 255989, 09489800, 69180691, 9367250, 5329771, 25042194, 70074120, 9020485, 6061069, 7481483 ####[address] [place] [address] Eosinophils/100 WBC (Bld) 1.5 % Normal 0.0-8.0 [facility] Comment on above: Order Comment: Order Added by Discern Expert. Performed By: #### 2 224305, 18145232, 69605403, 7131053, 7771323, 60685332, 85398232, 3006290, 0503509, 6747623 ####[address] [place] [address] Eosinophils/Leukocyte s Auto (Bld) [Pure # fraction] 0.1 E9/L Normal 0.0-0.5 [facility] Comment on above: Order Comment: Order Added by Discern Expert. Performed By: #### 2 412795, 44223713, 88890301, 5895736, 2784350, 55703640, 33923517, 5360617, 6592407, 0381743 ####[address] [place] [address] Lymphocytes/100 WBC (Bld) 52.9 % High 14.0-50.0 [facility] Comment on above: Order Comment: Order Added by Discern Expert. Performed By: #### 2 482038, 45557821, 50227823, 3827193, 8692616, 74574832, 01559574, 3911418, 4397695, 8095409 ####[address] [place] [address] Lymphocytes/Leukocyte s Auto (Bld) [Pure # fraction] 2.3 E9/L Normal 1.0-4.0 [facility] Comment on above: Order Comment: Order Added by Discern Expert. Performed By: #### 2 154674, 49438062, 82302478, 0676972, 0621666, 45236477, 06569160, 4428821, 5025934, 9541037 ####[address] [place] [address] Monocytes/100 WBC (Bld) 6.7 % Normal 4.0-14.0 [facility] Comment on above: Order Comment: Order Added by Discern Expert. Performed By: #### 2 370686, 57792095, 16217888, 8490279, 6739521, 28035007, 44829991, 0771446, 1854558, 1262539 ####[facility] [address] [place] [address] Monocytes/Leukocytes Auto (Bld) [Pure # fraction] 0.3 E9/L Normal 0.2-1.0 [facility] Comment on above: Order Comment: Order Added by Discern Expert. Performed By: #### 2 793343, 19066996, 84794926, 9067524, 3594880, 81239246, 38978817, 7967922, 3672152, 4110571 ####[address] [place] [address] Neutrophils/100 WBC (Bld) 36.7 % Normal 36.0-75.0 [facility] Comment on above: Order Comment: Order Added by Discern Expert. Performed By: #### 2 134306, 93382916, 52881911, 7337824, 2776056, 34282827, 35947738, 0700033, 4313885, 0841491 ####[facility] [address] [place] [address] Neutrophils/Leukocyte s Auto (Bld) [Pure # fraction] 1.6 E9/L Low 2.0-7.5 [facility] Comment on above: Order Comment: Order Added by Discern Expert. Performed By: #### 2 165404, 86891860, 10888107, 4222390, 1758486, 08113216, 28972609, 0086527, 2407897, 2806650 ####[facility] [address] [place] [address] B hCG Qualon 12-10-2022 Beta hCG Ql Negative Normal [facility] Comment on above: Performed By: #### 2 345069, 11069808, 18859070, 3094130, 8541041, 65461372, 01980212, 5625303, 8714173, 1195961 ####[facility] [address] [place] [address] BMPon 12-10-2022 Creatinine [Mass/Vol] 0.6 mg/dL Normal 0.5-1.3 [facility] Comment on above: Performed By: #### 2 598897, 57728368, 40415514, 1284947, 9028623, 62557695, 63456006, 1595779, 2398629, 4640025 ####[facility] [address] [place] [address] Urea nitrogen [Mass/Vol] 6 mg/dL Normal 5-21 [facility] Comment on above: Performed By: #### 2 361119, 84864291, 78055403, 1079687, 1511359, 16967833, 99487100, 7406527, 8216244, 0465909 ####[facility] [address] [place] [address] Urea nitrogen/Creatinine [Mass ratio] 10 No Units Normal 10-20 [facility] Comment on above: Performed By: #### 2 296627, 23648854, 77781646, 8902770, 5467141, 94200765, 47391315, 6024555, 8410742, 4531543 ####[facility] [address] [place] [address] Anion gap [Moles/Vol] 14 mmol/L Normal 6-16 [facility] Comment on above: Performed By: #### 2 715055, 80410460, 95931026, 4374837, 2357346, 90149164, 42314035, 7694456, 4168754, 2728879 ####[facility] [address] [place] [address] Calcium [Mass/Vol] 8.8 mg/dL Low 8.9-11.1 [facility] Comment on above: Performed By: #### 2 686280, 55670239, 99663780, 3292516, 0671720, 22146114, 83446220, 8438858, 7907412, 3923672 ####[facility] [address] [place] [address] Chloride [Moles/Vol] 104 mmol/L Normal 101-111 [facility] Comment on above: Performed By: #### 2 453480, 91737611, 24579419, 0545288, 4227319, 14909149, 51881987, 3978425, 8999159, 4038576 ####[facility] [address] [place] [address] CO2 [Moles/Vol] 25 mmol/L Normal 21-31 [facility] Comment on above: Performed By: #### 2 598128, 31829143, 16789451, 7619963, 6659570, 83329832, 02801356, 1719883, 9394779, 6085334 ####[facility] [address] [place] [address] Glucose [Mass/Vol] 92 mg/dL Normal 55-199 [facility] Comment on above: Result Comment: If t his glucose result represents a fasting glucose, interpretation should refer to the following reference range: 55-99 mg/dL Performed By: #### 2 108559, 99407445, 67111676, 0144187, 1360765, 53584178, 08115715, 7813199, 3287106, 3641859 ####[facility] [address] [place] [address] Potassium [Moles/Vol] 3.9 mmol/L Normal 3.5-5.3 [facility] Comment on above: Performed By: #### 2 175948, 34145550, 16029938, 7827315, 3437912, 03634275, 17530631, 5459838, 9526619, 6680985 ####[facility] [address] [place] [address] Sodium [Moles/Vol] 139 mmol/L Normal 135-145 [facility] Comment on above: Performed By: #### 2 012518, 62607567, 66505793, 5664816, 3931416, 02636024, 60047595, 0044940, 1163731, 5998374 ####[address] [place] [address] CBC w/ Auto Diffon 3 Erythrocyte distribution width (RBC) [Ratio] 14.6 % High 10.9-14.2 [facility] Comment on above: Performed By: #### 2 923277, 64435037, 70779557, 2452289, 5505811, 68200412, 22452683, 3786276, 4907289, 6858316 ####[address] [place] [address] Hematocrit (Bld) [Volume fraction] 47.1 % High 34.0-46.0 [facility] Comment on above: Performed By: #### 2 685038, 58605374, 40622467, 0711985, 4256654, 20834616, 27464823, 2029966, 9641887, 1119688 ####[address] [place] [address] Hemoglobin (Bld) [Mass/Vol] 16.1 g/dL High 12.0-16.0 [facility] Comment on above: Performed By: #### 2 487604, 33615885, 08334637, 8453767, 0989463, 32602418, 31165867, 1109673, 5848635, 1007601 ####[facility] [address] [place] [address] MCH (RBC) [Entitic mass] 33.9 pg Normal 27.0-34.0 [facility] Comment on above: Performed By: #### 2 295245, 03025947, 41650471, 4270741, 6670095, 99000666, 39594722, 9465859, 2551162, 3202784 ####[address] [place] [address] MCHC (RBC) [Mass/Vol] 34.3 g/dL Normal 31.4-36.0 [facility] Comment on above: Performed By: #### 2 184546, 67360101, 98206716, 9282816, 8526493, 54811032, 07517780, 9115243, 0295338, 7952021 ####[facility] [address] [place] [address] MCV (RBC) [Entitic vol] 98.9 fL Normal 80.0-100.0 [facility] Comment on above: Performed By: #### 2 181450, 35968869, 42374521, 3363875, 0458632, 03222054, 33273322, 7537698, 5476335, 2607574 ####[facility] [address] [place] [address] Platelet mean volume (Bld) [Entitic vol] 8.2 fL Normal 6.4-10.8 [facility] Comment on above: Performed By: #### 2 511967, 89167677, 80460042, 7362648, 4537161, 25257164, 11204899, 2781655, 9509348, 0498310 ####[facility] [address] [place] [address] Platelets (Bld) [#/Vol] 144.0 E9/L Low 150.0-500.0 [facility] Comment on above: Performed By: #### 2 425598, 17267254, 87717435, 4099130, 5719307, 77537264, 22552377, 7989484, 6082431, 8152410 ####[facility] [address] [place] [address] RBC (Bld) [#/Vol] 4.8 E12/L Normal 4.3-5.9 [facility] Comment on above: Performed By: #### 2 088322, 07482275, 28032489, 6036622, 6240676, 98412815, 25797517, 3068045, 3691416, 7594832 ####[facility] [place] [address] WBC corrected for nucl RBC Auto (Bld) [#/Vol] 4.4 E9/L Normal 4.0-11.0 [facility] Comment on above: Result Comment: Slid e reviewed by AG. Performed By: #### 2 102545, 74966623, 42500987, 3136536, 4464683, 58341042, 27790828, 4281380, 9393633, 9181806 ####[facility] [address] [place] [address] CHEMISTRYOrdered By: SYSTEM SYSTEM on 12-10-2022 Ethanol [Mass/Vol] 327 mg/dL Invalid Interpretation Code <=7mg/dL [facility] Comment on above: Result Comment: Crit ical Result verified by repeat analysis\Critical Result S_ETOH:327.0 Called to YON JENKINS AT ER by LEXI DOOLEY And Read Back For Confirmation at: [...] Instructions For Use, [employer], September 2017) Albumin [Mass/Vol] 4.2 g/dL Normal [...] 124 mL/min/1.73 m2 Normal >=59mL/min/1 .73 m2 [facility] [place] Chem S Comment on above: Interpretive Data: [...] 42.2 s High 25.1 - 36.5 second(s) [facility] [place] Auto Coag Comment on above: Interpretive Data: [...] the same coagulation reagent and instrumentation as [facility] [place]. Currently there are no coagulation studies available [...] s High 9.4 - 1 2.5 second(s) [facility] [place] Auto Coag Comment on above: Interpretive Data: [...] the same coagulation reagent and instrumentation as [facility] [place]. Currently there are no coagulation studies available worldwide for children to 14 days, and no normal ranges. Consent for Treatmenton 11-13 Consent for Treatment [id number]#1.00TIF F [facility] Consent for Treatment [id number]#1.00TIF F [facility] Discharge Instructionson Discharge Instructions [id number]#1.00TIF F [facility] ED Clinical Summaryon 2022 ED Clinical Summary Normal [facility] ED Clinical Summary Normal [facility] ED Note-Nursingon 12-10-2022 ED Note-Nursing Patient belongings t aken from patient after patient asked staff if I can take the Ativan i have in my purse . When purse was taken, vodka, nail martiniquais remover and mouth wash taken from patient at this time. Normal [facility] ED Note-Physicianon 12-11-19 ED Note-Physician [facility] Comment on above: Result Comment: Elec tronically Signed By: Darren Guzman DO\.br\Date and Time Signed: 12/10/22 21:40 EDT ED Note-Physician Normal [facility] Comment on above: Result Comment: Elec tronically Signed By: Fabricio Gao PA-C\.br\Date and Time Signed: 12/10/22 18:31 EDT\.br\Electronically Co-Signed By: Eric Forbes DO\.br\Date and Time Co-Signed: 12/10/22 18:37 EDT ED Note-Physician Normal [facility] Comment on above: Result Comment: Elec tronically Signed By: Eric Forbes DO\.br\Date and Time Signed: 12/10/22 11:43 EDT ED Patient Education Noteon 12-10-2022 ED Patient Education Note Normal [facility] ED Patient Education Note Normal [facility] ED Patient Summaryon 023 ED Patient Summary Normal [facility] ED Patient Summary Normal [facility] Ethanolon 12-10-2022 Ethanol [Mass/Vol] 327 mg/dL Abnormal <=7 [facility] Comment on above: Result Comment: Crit ical Result verified by repeat analysis\Critical Result S_ETOH:327.0 Called to YON JENKINS AT ER by LEXI DOOLEY And Read Back For Confirmation at: 12/10/2022 18:58:35 Performed By: #### 2 362368 ####[facility] [address] [place] [address] Ethanol [Mass/Vol] 277 mg/dL Abnormal <=7 [facility] Comment on above: Result Comment: Crit ical Result verified by repeat analysis\Critical Result S_ETOH:277.0 Called to MANFRED RAUSCH AT ER by PERICO GOULD And Read Back For Confirmation at: 12/10/2022 09:05:13 Performed By: #### 2 072981 ####[facility] [address] [place] [address] HEMATOLOGYOrdered By: SYSTEM SYSTEM on 12-10-2022 Basophils/100 WBC (Bld) 2.2 % High 0.0 - 2.0 % [facility] [place] [place] HemeAutoSS Basophils/Leukocytes Auto (Bld) [Pure # fraction] [...] 144.0 E9/L Low 150.0 - 500.0 E9/L FT HemeAutoSS RBC (Bld) [#/Vol] 4.8 E12/L Normal 4.3 - 5.9 E12/L FT HemeAutoSS WBC corrected for nucl RBC Auto (Bld) [#/Vol] 4.4 E9/L Normal 4.0 - 11.0 E9/L FT [facility]eAuto[facility] Comment on above: Result Comment: Slid e reviewed by [facility] Panelon 12-10-2022 AST [Catalytic activity/Vol] 364 Int._Unit/L High [facility] Comment on above: Performed By: #### 2 192350, 27772800, 14862379, 1267123, 0089842, 23268628, 56749769, 6114870, 3422528, 0983486 ####[facility] [address] [place] [address] Albumin [Mass/Vol] 4.2 g/dL Normal 3.3-5.0 [facility] Comment on above: Performed By: #### 2 149895, 76330657, 81819797, 6826938, 3796920, 65445273, 28998673, 8931097, 9703318, 8829939 ####[facility] [address] [place] [address] Albumin/Globulin (S) [Mass conc ratio] 0.9 Low 1.1-2.2 [facility] Comment on above: Performed By: #### 2 574935, 86283844, 66800843, 0908978, 2535190, 48491014, 12137894, 8218595, 0567976, 3027777 ####[facility] [address] [place] [address] ALP [Catalytic activity/Vol] 171 Int._Unit/L High 21 [facility] Comment on above: Performed By: #### 2 860286, 47496660, 10622040, 2672430, 6806928, 98631882, 68071483, 2048848, 8795587, 4933362 ####[facility] [address] [place] [address] ALT No additional P-5'-P [Catalytic activity/Vol] 192 Int._Unit/L High 6-46 [facility] Comment on above: Performed By: #### 2 542842, 06655733, 61348937, 9805039, 8376351, 28227148, 41570541, 8058680, 0759286, 2849062 ####[facility] [address] [place] [address] Bilirubin [Mass/Vol] 0.8 mg/dL Normal 0.0-1.1 [facility] Comment on above: Performed By: #### 2 943204, 18368383, 95505928, 0928406, 4656309, 49355054, 77075371, 2781291, 5786965, 8494189 ####[address] [place] [address] Bilirubin.direct [Mass/Vol] 0.3 mg/dL Normal 0.1-0.4 [facility] Comment on above: Performed By: #### 2 768622, 91705518, 45412053, 8373969, 9120667, 01825669, 06927072, 4795485, 8108923, 6901272 ####[facility] [address] [place] [address] Bilirubin.indirect [Mass or moles/Vol] 0.5 mg/dL Normal 0.1-0.9 [facility] Comment on above: Performed By: #### 2 713463, 31611403, 46554905, 6786894, 1736963, 71782766, 08730551, 5416482, 6426255, 9639183 ####[address] [place] [address] Globulin (S) [Mass/Vol] 4.6 g/dL High 1.4-4.0 [facility] Comment on above: Performed By: #### 2 424801, 74972289, 62323658, 4864923, 3831941, 50710695, 07870651, 0377571, 6018293, 1477350 ####[facility] [address] [place] [address] Protein [Mass/Vol] 8.8 g/dL High 6.0-7.8 [facility] Comment on above: Performed By: #### 2 459500, 08032545, 26712278, 9719350, 5285267, 39615861, 76441266, 8253769, 5365552, 5253808 ####[facility] [address] [place] [address] Lipase Levelon 12-10-2022 Lipase [Catalytic activity/Vol] 46 U/L Normal 13-58 [facility] Comment on above: Performed By: #### 2 843377, 06363451, 39770980, 3812177, 5886163, 65234147, 34061170, 6914413, 4129644, 4253188 ####[facility] [address] [place] [address] Magnesiumon 12-10-2022 Magnesium [Mass/Vol] 1.9 mg/dL Normal 1.3-2.4 [facility] Comment on above: Performed By: #### 2 860315, 92731777, 82484956, 3313580, 2883168, 87394624, 41089895, 1024736, 8292333, 7026811 ####[facility] [address] [place] [address] Monitor Recordon 12-10-2022 Monitor Record [id number] [id number]#1.00TI FF Normal [facility] PT & PTTon 12-10-2022 aPTT Coag (PPP) [Time] 42.2 second(s) High 25.1-36.5 [facility] Comment on above: Order Comment: Nurse is starting IV and pull labs 12/10/2022 08:12:05 EDT [id number] Result Comment: Para meter 15 days - [...] the same coagulation reagent and instrumentation as [facility] [place]. Currently there are no coagulation studies available worldwide for children to 14 days, and no normal ranges. Heparin therapeutic range (represented by Anti-Factor Xa activity of 0.2 - 0.4 U/mL) corresponds to PTT of 56.6 - 109.0 sec. Performed By: #### 2 777253, 83022723, 92229575, 5053250, 5139662, 91700444, 85547404, 1202309, 3054480, 9138733 ####[facility] [address] [place] [address] INR Coag (PPP) [Relative time] 1.2 {INR} Invalid Interpretation Code [facility] Comment on above: Order Comment: Nurse is starting IV and pull labs 12/10/2022 08:12:05 EDT [id number] Result Comment: INR results are specifically intended to assess patients stabilized on long-term Anticoagulation therapy suggested INR?s ?Less Intensive Anticoagulation? 2.0 ? 3.0Conventional Range 3.0 ? 4.5 Performed By: #### 2 826604, 62422110, 14350828, 6450217, 9570014, 09474181, 74633510, 1356916, 2390589, 5374252 ####[facility] [address] [place] [address] PT Coag (PPP) [Time] 12.8 second(s) High 9.4-12.5 [facility] Comment on above: Order Comment: Nurse is starting IV and pull labs 12/10/2022 08:12:05 EDT [id number] Result Comment: 15 d ays - 4 [...] the same coagulation reagent and instrumentation as [facility] [place]. Currently there are no coagulation studies available worldwide for children to 14 days, and no normal ranges. Performed By: #### 2 727465, 63698293, 23128292, 8520830, 8248013, 83830368, 06705408, 8546066, 6668217, 9107574 ####[facility] [address] [place] [address] SEROLOGYOrdered By: Annie Lorenzo on 12-10-2022 Beta hCG Ql Negative (12/10/22 8:23 AM) Normal [facility] [place] Man Sero Troponin 0 Hr.on 12-10-2022 Troponin I.cardiac [Mass/Vol] 5.70 pg/mL Low 10.10-27.10 [facility] Comment on above: Result Comment: The 95% CI (Confidence Interval) PPV (Positive Predictive Value) for myocardial infarction in females is 38 pg/mL, in males 51 pg/mL. The results should be used in conjunction with clinical conditions of myocardial infarction.(Access High Sensitivity Troponin I Instructions For Use, [employer], September 2017) Performed By: #### 2 030688, 35504772, 09570439, 6888982, 2868701, 60702141, 28509809, 3029879, 9155063, 1598389 ####[facility] [address] [place] [address] Troponin 3 Hr.on 12-10-2022 Troponin I.cardiac [Mass/Vol] 6.00 pg/mL Low 10.10-27.10 [facility] Comment on above: Result Comment: The 95% CI (Confidence Interval) PPV (Positive Predictive Value) for myocardial infarction in females is 38 pg/mL, in males 51 pg/mL. The results should be used in conjunction with clinical conditions of myocardial infarction.(Access High Sensitivity Troponin I Instructions For Use, [employer], September 2017) Performed By: #### 1 1244139 ####[facility] [address] [place] [address] U Drug Screenon 12-10-2022 Benzodiazepines Ql (U) Positive Abnormal Negative [facility] Comment on above: Result Comment: No c onfirmation requested by Physican\Results verified by repeat analysis\Unconfirmed by alternate method\Critical Result UD_BENZ:POS Called to CHILO GODOY AT ER by PERICO GOULD And Read Back For Confirmation at: 12/10/2022 11:50:16Negative Cutoff: <200 ng/mL Performed By: #### 2 391643 ####[place] [address] Amphetamines Screen method >1000 ng/mL Ql (U) Negative Normal Negative [facility] Comment on above: Result Comment: Nega tive Cutoff: <1000 ng/mL Performed By: #### 2 496503 ####[address] [address] Barbiturates Screen Ql (U) Negative Normal Negative [facility] Comment on above: Result Comment: Nega tive Cutoff: <200 ng/mL Performed By: #### 2 545118 ####[address] [place] [address] Cocaine Ql (U) Negative Normal Negative [facility] Comment on above: Result Comment: Nega tive Cutoff: <300 ng/mL Performed By: #### 2 070009 ####[address] [place] [address] Opiates Screen Ql (U) Negative Normal Negative [facility] Comment on above: Result Comment: Nega tive Cutoff: <300 ng/mL Performed By: #### 2 378851 ####[address] [place] [address] Phencyclidine Screen method >25 ng/mL Ql (U) Negative Normal Negative [facility] Comment on above: Result Comment: Nega tive Cutoff: <25 ng/mLThese drug screen results are to be used for medical (i.e., treatment) purposes only. Unconfirmed drug screening results must not be used for non-medical purposes (e.g., employment testing, legal testing). Performed By: #### 2 707025 ####[address] [address] Tetrahydrocannabinol Screen method >50 ng/mL Ql (U) Negative Normal Negative [facility] Comment on above: Result Comment: Nega tive Cutoff: <50 ng/mL Performed By: #### 2 215085 ####[address] [address] UA With Cult Reflexon 2022 Bilirubin Ql (U) 1+ Abnormal Negative [facility] Comment on above: Performed By: #### 1 5123012 ####[address] [address] Clarity (U) CLOUDY Abnormal Clear [facility] Comment on above: Performed By: #### 1 0069657 ####[address] [address] Color (U) DARK YELLO Abnormal Yellow [facility] Comment on above: Performed By: #### 1 7133179 ####[address] [address] Crystals LM Ql (Urine sed) Present Normal [facility] Comment on above: Performed By: #### 1 8625545 ####[address] [address] Epithelial cells.squamous LM.HPF (Urine sed) [#/Area] 9-10 Normal 0-2 [facility] Comment on above: Performed By: #### 1 3382524 ####[address] [address] Glucose Test strip (U) [Mass/Vol] Negative Normal Negative [facility] Comment on above: Performed By: #### 1 7901832 ####[facility] [address] [place] [address] Hemoglobin Ql (U) 3+ Abnormal Negative [facility] Comment on above: Performed By: #### 1 6093592 ####[address] [address] Ketones (U) [Mass/Vol] TRACE Invalid Interpretation Code Negative [facility] Comment on above: Performed By: #### 1 1026886 ####[address] [address] Ector.plasma/Lithiu m.RBC (Bld) [Mass ratio] 0-3 Normal 0-3 [facility] Comment on above: Performed By: #### 1 3980084 ####[address] [address] Nitrite Ql (U) Negative Normal Negative [facility] Comment on above: Performed By: #### 1 5230265 ####[address] [address] pH (U) 7.0 [pH] Invalid Interpretation Code 5.0-9.0 [facility] Comment on above: Performed By: #### 1 3259918 ####[facility] [address] [place] [address] Protein (U) [Mass/Vol] 2+ Abnormal Negative [facility] Comment on above: Performed By: #### 1 5379826 ####[address] [address] Specific gravity (U) [Rel density] 1.015 Invalid Interpretation Code 1.005-1.030 [facility] Comment on above: Performed By: #### 1 2917496 ####[address] [address] Type of Urine collection method Clean Catch Normal [facility] Comment on above: Performed By: #### 1 0048105 ####[facility] [address] [place] [address] Urobilinogen Qn (U) >=8.0 Abnormal 0.0-1.0 [facility] Comment on above: Performed By: #### 1 1074412 ####[facility] [address] [place] [address] WBC Auto Ql (U) Negative Normal Negative [facility] Comment on above: Performed By: #### 1 3789660 ####[facility] [address] [place] [address] WBC LM.HPF (Urine sed) [#/Area] 0-5 Normal 0-5 [facility] Comment on above: Performed By: #### 1 2331141 ####[facility] [address] [place] [address] URINALYSISOrdered By: Zakiya Lorenzo on 12-10-2022 Bilirubin [...] Interpretation Code Negative [facility] UA Auto SS Ector.plasma/Lithiu m.RBC (Bld) [Mass ratio] 0-3 /HPF Normal [...] Desc Clean Catch (12/10/22 11:15 AM) Normal FT UA Auto SS Urobilinogen Qn (U) {Surinder'U}/dL Invalid Interpretation Code 0.0 - 1.0 EU/dL [facility] UA Auto SS WBC Auto Ql (U) Negative (12/10/22 11:15 AM) Normal Negative [facility] UA Auto SS WBC LM.HPF (Urine sed) [#/Area] 0-5 /HPF Normal 0-5/HPF [facility] UA Auto SS XR Chest Single Viewon 12-10 XR Chest Single View Normal [facility] eGFRon 12-10-2022 GFR/1.73 sq M.predicted among non-blacks MDRD (S/P/Bld) [Vol rate/Area] 124 mL/min/1.73 m2 Normal >=59 [facility] Comment on above: Order Comment: Order added by Discern Expert. Result Comment: Branch Logistics Supervisor justin kidney disease could be indicated at eGFR's of less than 60 mL/min/1.73m2. Kidney failure is indicated at less than 15 mL/min/1.73m2. Performed By: #### 2 585286, 51772294, 34991497, 0876481, 8473702, 40418619, 82467986, 6498001, 5517118, 0673668 ####[facility] [address] [place] [address] Consenton 12-03-2022 Consent [id number]#1.00TI FF Normal [facility] C Urineon 12-02-2022 Bacteria identified Cx Nom (U) Normal [facility] Comment on above: Performed By: #### 2 524143 ####[facility] [address] [place] [address] Family Medicine Office/Clini c Noteon 11-30-2022 Family Medicine Office/Clinic Note Normal [facility] Comment on above: Result Comment: Elec tronically Signed By: ANA HARO, CARRIE\.br\Date and Time Signed: 11/30/22 14:01 EDT Patient Educationon 12-01-19 Patient Education Normal [facility] DHEASon 11-20-2022 DHEA-S [Mass/Vol] 35.7 microgram/dL Low 84.8-378.0 [facility] Comment on above: Result Comment: Perf ormed at: [email or web address] [address] [place], [place] [id number] PhD Sriram Arceo Performed By: #### 2 813795, 6311904, 527299177, 3351090, 903526792, 58497155, 93110980 ####[facility] [address] [place] [address] Estradiolon 11-20-2022 E2 [Mass/Vol] 85.0 pg/mL Invalid Interpretation Code [facility] Comment on above: Result Comment: Adul t Female:Follicular phase 12.5 - 166.0Ovulation phase 85.8 - 498.0Luteal phase 43.8 - 211.0Postmenopausal <6.0 - 54.8Bvyjnocqi1yp trimester 215.0 - >4300.0Roche ECLIA methodologyPerformed at: [email or web address] [address] [place], [place] [id number] PhD Sriram Arceo Performed By: #### 2 810946, 4627534, 177624042, 1886905, 536569033, 66541303, 48525905 ####[facility] [address] [place] [address] FSHon 11-20-2022 Follitropin Qn 10.0 m[IU]/mL Invalid Interpretation Code [facility] Comment on above: Result Comment: Adul t Female:Follicular phase 3.5 - 12.5Ovulation phase 4.7 - 21.5Luteal phase 1.7 - 7.7Postmenopausal 25.8 - 134.8Performed at: [id number] [place], [place] [id number] PhD Sriram Arceo Performed By: #### 2 683035, 5096487, 023225939, 3271411, 713436156, 75908380, 92360312 ####[facility] [address] [place] [address] HIV Screen 4th Generation wR fxon 11-20-2022 HIV 1+2 Ab+HIV1 p24 Ag IA Ql Non-Reactive Invalid Interpretation Code Non Reactive [facility] Comment on above: Result Comment: HIV NegativeHIV-1/HIV-2 antibodies and HIV-1 p24 antigen were NOT detected.There is no laboratory evidence of HIV infection.Performed at: [id number] [place], [place] [id number] PhD Sriram Arceo Performed By: #### 2 471143, 3468610, 510221992, 0400036, 288006129, 30740935, 76974708 ####[facility] [address] [place] [address] Hep Bs Agon 11-20-2022 HBV surface Ag IA Ql Negative Invalid Interpretation Code Negative [facility] Comment on above: Result Comment: Perf ormed at: [address] [place], [place] [id number] PhD Sriram Arceo Performed By: #### 2 553153, 7292657, 276103420, 3637384, 737708430, 76426197, 15771413 ####[facility] [address] [place] [address] Testosterone F&Ton 3 Testosterone [Mass/Vol] 40 ng/dL Invalid Interpretation Code [facility] Comment on above: Performed By: #### 2 297549, 0488095, 322783716, 9051152, 167810289, 37536412, 36961511 ####[facility] [address] [place] [address] Testosterone Free [Mass/Vol] 0.8 pg/mL Invalid Interpretation Code 0.0-4.2 [facility] Comment on above: Result Comment: Perf ormed at: [address] [id number] PhD Sriram ArceoPerformed at: [address] [id number] MD Dimitris Maher Performed By: #### 2 878711, 4031486, 686687308, 4326675, 144127095, 23152919, 93975519 ####[facility] [address] [place] [address] Thyroid Perox.tpo Abon 11-16 TPO Ab Qn 15 International_Unit/mL Invalid Interpretation Code 0-34 [facility] Comment on above: Result Comment: Perf ormed at: [address] [id number] PhD Sriram Arceo Performed By: #### 3 7069019, 67334390, 56197399 ####[facility] [address] [place] [address] WRITTEN AUTHORIZATIONon Written Authorization Comment Invalid Interpretation Code [facility] Comment on above: Result Comment: Writ ten Authorization Received.Authorization received from ORIGINAL ORDER [id number] by Rodrick Vásquezformed at: [address] [id number] PhD Sriram Arceo Performed By: #### 3 0835562, 33254721, 33538333 ####[facility] [address] [place] [address] CHEMISTRYOrdered By: SYSTEM SYSTEM on 11-14-2022 Amphetamines [...] <50 ng/mL Physician Orderon 11-14-2022 Physician Order [id number]#1.00CD :127 Normal [facility] RPR with Conf Rfxon 11-15-19 23 Reagin Ab RPR Ql (S) Non-Reactive Invalid Interpretation Code Non Reactive [facility] Comment on above: Result Comment: Perf ormed at: [facility] [address] [id number] PhD Sriram Arceo Performed By: #### 2 466226, 5671914, 127298066, 9229589, 773643276, 75138851, 29874217 ####[facility] [address] [place] [address] U Drug Screenon 11-14-2022 Amphetamines Screen method >1000 ng/mL Ql (U) Negative Normal Negative [facility] Comment on above: Result Comment: Nega tive Cutoff: <1000 ng/mL Performed By: #### 2 309508 ####[address] [address] Barbiturates Screen Ql (U) Negative Normal Negative [facility] Comment on above: Result Comment: Nega tive Cutoff: <200 ng/mL Performed By: #### 2 728571 ####[address] [address] Benzodiazepines Ql (U) Negative Normal Negative [facility] Comment on above: Result Comment: Nega tive Cutoff: <200 ng/mL Performed By: #### 2 313826 ####[address] [address] Cocaine Ql (U) Negative Normal Negative [facility] Comment on above: Result Comment: Nega tive Cutoff: <300 ng/mL Performed By: #### 2 316753 ####[address] [address] Opiates Screen Ql (U) Negative Normal Negative [facility] Comment on above: Result Comment: Nega tive Cutoff: <300 ng/mL Performed By: #### 2 742139 ####[address] [address] Phencyclidine Screen method >25 ng/mL Ql (U) Negative Normal Negative [facility] Comment on above: Result Comment: Nega tive Cutoff: <25 ng/mLThese drug screen results are to be used for medical (i.e., treatment) purposes only. Unconfirmed drug screening results must not be used for non-medical purposes (e.g., employment testing, legal testing). Performed By: #### 2 771940 ####[address] [place] [address] Tetrahydrocannabinol Screen method >50 ng/mL Ql (U) Negative Normal Negative [facility] Comment on above: Result Comment: Nega tive Cutoff: <50 ng/mL Performed By: #### 2 313605 ####[facility] [address] [place] [address] CHEMISTRYOrdered By: SYSTEM SYSTEM on 11-13-2022 TSH Qn 1.86 m[IU]/L Normal 0.34 - 5.60 mcIU/mL [facility] [place] Remisol Consent for Treatmenton Consent for Treatment [id number]#1.00CD: 127 Normal [facility] Consent for Treatment [id number]#1.00CD: 127 Normal [facility] Physician Orderon 11-13-2022 Physician Order [id number]#1.00CD :127 Normal [facility] Physician Order [id number]#1.00CD :127 Normal [facility] TSH With T4fr Reflexon 11-13 TSH Qn 1.86 m[IU]/L Normal 0.34-5.60 [facility] Comment on above: Performed By: #### 3 7171623, 25601531, 75619246 ####[facility] [address] [place] [address] Consent for Treatmenton Consent for Treatment [id number]#1.00CD:1 27 Normal [facility] Discharge Instructionson Discharge Instructions [id number]#1.00CD: 127 Normal [facility] ED Clinical Summaryon 2022 ED Clinical Summary Normal [facility] ED Note-Physicianon 10-01-20 23 ED Note-Physician Normal [facility] Comment on above: Result Comment: Elec tronically Signed By: Elliott Hicks PA-C\.br\Date and Time Signed: 11/11/22 11:36 EDT\.br\Electronically Co-Signed By: Isai Hall DO.br\Date and Time Co-Signed: 11/11/22 13:15 EDT ED Patient Education Noteon 11-11-2022 ED Patient Education Note Normal [facility] ED Patient Summaryon 023 ED Patient Summary Normal [facility] Pre-Arrival Noteon 3 Pre-Arrival Note Normal [facility] Auto Diffon 11-04-2022 Basophils/100 WBC (Bld) 0.8 % Normal 0.0-2.0 [facility] Comment on above: Order Comment: Order Added by Discern Expert. Performed By: #### 1 9759295, 8941233, 4616915, 4715224 ####[facility] [address] [place] [address] Basophils/Leukocytes Auto (Bld) [Pure # fraction] 0.0 E9/L Normal 0.0-0.2 [facility] Comment on above: Order Comment: Order Added by Discern Expert. Performed By: #### 1 6279439, 9222876, 3937707, 8796032 ####[facility] [address] [place] [address] Eosinophils/100 WBC (Bld) 1.1 % Normal 0.0-8.0 [facility] Comment on above: Order Comment: Order Added by Discern Expert. Performed By: #### 1 3019076, 6134170, 6843179, 5416188 ####[facility] [address] [place] [address] Eosinophils/Leukocyte s Auto (Bld) [Pure # fraction] 0.0 E9/L Normal 0.0-0.5 [facility] Comment on above: Order Comment: Order Added by Discern Expert. Performed By: #### 1 1473609, 4798380, 1160989, 5980364 ####[address] [address] Lymphocytes/100 WBC (Bld) 40.7 % Normal 14.0-50.0 [facility] Comment on above: Order Comment: Order Added by Discern Expert. Performed By: #### 1 1056375, 4889242, 0271444, 9452613 ####[address] [address] Lymphocytes/Leukocyte s Auto (Bld) [Pure # fraction] 1.6 E9/L Normal 1.0-4.0 [facility] Comment on above: Order Comment: Order Added by Discern Expert. Performed By: #### 1 9257769, 3758225, 6050835, 6616715 ####[address] [address] Monocytes/100 WBC (Bld) 6.9 % Normal 4.0-14.0 [facility] Comment on above: Order Comment: Order Added by Discern Expert. Performed By: #### 1 5567122, 5400440, 2102474, 0711339 ####[address] [address] Monocytes/Leukocytes Auto (Bld) [Pure # fraction] 0.3 E9/L Normal 0.2-1.0 [facility] Comment on above: Order Comment: Order Added by Radha Expert. Performed By: #### 1 0991256, 6340072, 9343460, 3242176 ####[address] [address] Neutrophils/100 WBC (Bld) 50.5 % Normal 36.0-75.0 [facility] Comment on above: Order Comment: Order Added by Discern Expert. Performed By: #### 1 0049549, 1777059, 9011647, 5343346 ####[address] [address] Neutrophils/Leukocyte s Auto (Bld) [Pure # fraction] 2.0 E9/L Normal 2.0-7.5 [facility] Comment on above: Order Comment: Order Added by Discern Expert. Performed By: #### 1 2858290, 9104420, 2835599, 0858267 ####[facility] [address] [place] [address] BMPon 11-04-2022 Creatinine [Mass/Vol] 0.6 mg/dL Normal 0.5-1.3 [facility] Comment on above: Performed By: #### 1 6327855, 3222418, 9130309, 8183617 ####[facility] [address] [place] [address] Urea nitrogen [Mass/Vol] 7 mg/dL Normal 5-21 [facility] Comment on above: Performed By: #### 1 9826491, 0739590, 7029553, 9951259 ####[facility] [address] [place] [address] Urea nitrogen/Creatinine [Mass ratio] 12 No Units Normal 10-20 [facility] Comment on above: Performed By: #### 1 9281349, 3229570, 1560179, 7241991 ####[facility] [address] [place] [address] Anion gap [Moles/Vol] 9 mmol/L Normal 6-16 [facility] Comment on above: Performed By: #### 1 1336247, 0183838, 1355230, 3495760 ####[facility] [address] [place] [address] Calcium [Mass/Vol] 9.0 mg/dL Normal 8.9-11.1 [facility] Comment on above: Performed By: #### 1 3343584, 3036117, 1211159, 1471037 ####[facility] [address] [place] [address] Chloride [Moles/Vol] 105 mmol/L Normal 101-111 [facility] Comment on above: Performed By: #### 1 9833318, 4649314, 3843439, 4363670 ####[facility] [address] [place] [address] CO2 [Moles/Vol] 27 mmol/L Normal 21-31 [facility] Comment on above: Performed By: #### 1 6478813, 4824639, 4212944, 6780607 ####[facility] [address] [place] [address] Glucose [Mass/Vol] 115 mg/dL Normal 55-199 [facility] Comment on above: Result Comment: If t his glucose result represents a fasting glucose, interpretation should refer to the following reference range: 55-99 mg/dL Performed By: #### 1 5662059, 1291936, 4820295, 9844876 ####[facility] [address] [place] [address] Potassium [Moles/Vol] 4.3 mmol/L Normal 3.5-5.3 [facility] Comment on above: Performed By: #### 1 1549423, 6918767, 4830436, 1667318 ####[facility] [address] [place] [address] Sodium [Moles/Vol] 137 mmol/L Normal 135-145 [facility] Comment on above: Performed By: #### 1 4738999, 1952124, 1770343, 6326871 ####[facility] [address] [place] [address] CBC w/ Auto Diffon 3 Erythrocyte distribution width (RBC) [Ratio] 14.4 % High 10.9-14.2 [facility] Comment on above: Performed By: #### 1 5837388, 7651885, 1671797, 6091589 ####[facility] [address] [place] [address] Hematocrit (Bld) [Volume fraction] 42.6 % Normal 34.0-46.0 [facility] Comment on above: Performed By: #### 1 [id number], [id number], 1803539, [id number] ####[facility] [address] [place] [address] Hemoglobin (Bld) [Mass/Vol] 14.4 g/dL Normal 12.0-16.0 [facility] Comment on above: Performed By: #### 1 [id number], [id number], 6516132, 5776053 ####[address] [place] [address] MCH (RBC) [Entitic mass] 33.1 pg Normal 27.0-34.0 [facility] Comment on above: Performed By: #### 1 [id number], 5617810, 3458408, 6068615 ####[address] [address] MCHC (RBC) [Mass/Vol] 33.8 g/dL Normal 31.4-36.0 [facility] Comment on above: Performed By: #### 1 [id number], 0540572, 1417576, 2503097 ####[address] [address] MCV (RBC) [Entitic vol] 98.0 fL Normal 80.0-100.0 [facility] Comment on above: Performed By: #### 1 [id number], 6968770, 2155233, 5085104 ####[address] [address] Platelet mean volume (Bld) [Entitic vol] 8.6 fL Normal 6.4-10.8 [facility] Comment on above: Performed By: #### 1 [id number], 7576867, 7155153, 0181522 ####[address] [address] Platelets (Bld) [#/Vol] 113.0 E9/L Low 150.0-500.0 [facility] Comment on above: Performed By: #### 1 0990400, 6402212, 5761616, 4066067 ####[address] [address] RBC (Bld) [#/Vol] 4.4 E12/L Normal 4.3-5.9 [facility] Comment on above: Performed By: #### 1 7722000, 9225674, 6563177, 0290974 ####[address] [place] [address] WBC corrected for nucl RBC Auto (Bld) [#/Vol] 4.0 E9/L Normal 4.0-11.0 [facility] Comment on above: Performed By: #### 1 [id number], 5270061, 6347141, 2064705 ####[facility] [address] [place] [address] CHEMISTRYOrdered By: SYSTEM SYSTEM on 11-04-2022 Anion gap [Moles/Vol] 9 mmol/L Normal 6 - 16 mEq/L F C [facility] Calcium [Mass/Vol] 9.0 mg/dL Normal 8.9 - 11. 1 mg/dL [facility] Chloride [Moles/Vol] 105 mmol/L Normal 101 - 1 11 mmol/L [facility] CO2 [Moles/Vol] 27 mmol/L Normal 21 - 31 mmol/L [facility] Creatinine [Mass/Vol] 0.6 mg/dL Normal 0.5 - 1.3 mg/dL [facility] [place] Remisol GFR/1.73 sq M.predicted among non-blacks MDRD (S/P/Bld) [Vol rate/Area] 124 mL/min/1.73 m2 Normal >=59mL/min/1 .73 m2 [facility] [place] Chem S Glucose [Mass/Vol] 115 mg/dL Normal 55 - 199 mg/dL [facility] Potassium [Moles/Vol] 4.3 mmol/L Normal 3.5 - 5.3 mmol/L [facility] [place] Remisol Sodium [Moles/Vol] 137 mmol/L Normal 135 - 145 mmol/L [facility] [place] Remisol Urea nitrogen [Mass/Vol] 7 mg/dL Normal 5 - 21 mg/dL [facility] [place] Remisol Urea nitrogen/Creatinine [Mass ratio] 12 mg/mg Normal 10 - 20 [facility] Consent for Treatmenton 10-13 Consent for Treatment [id number]#[id number]: 127 Normal [facility] Discharge Instructionson Discharge Instructions [id number]#[id number]: 127 Normal [facility] ED Clinical Summaryon 2022 ED Clinical Summary Normal Robby [facility] ED Note-Physicianon 11-05-19 ED Note-Physician Normal [facility] Comment on above: Result Comment: Elec tronically Signed By: Gladys Saini M.D.\Date and Time Signed: 11/04/22 16:02 EDT ED Patient Education Noteon 11-04-2022 ED Patient Education Note Normal [facility] ED Patient Summaryon 023 ED Patient Summary Normal [facility] HEMATOLOGYOrdered By: SYSTEM SYSTEM on 11-04-2022 Basophils/100 [...] [Vol rate/Area] 124 mL/min/1.73 m2 Normal >=59 [facility] Comment on above: Order Comment: Order added by Discern Expert. Result Comment: Branch Logistics Supervisor justin kidney disease could be indicated at eGFR's of less than 60 mL/min/1.73m2. Kidney failure is indicated at less than 15 mL/min/1.73m2. Performed By: #### 1 [id number], 1971255, 1592192, 1308142 ####[facility] [address] [place] [address] Registrationon 10-08-2022 Registration [id number]#1.00CD :127 Normal [facility] Consenton 10-05-2022 Consent [id number]#1.00CD :127 Normal [facility] Insurance Correspondenceon 0 09-12-2022 Insurance Correspondence [id number]#1.00CD: 127 Normal [facility] Physician Referralon 023 Physician Referral [id number]#1.00CD: 127 Normal [facility] ED Note-Physicianon 09-11-19 23 ED Note-Physician [id number]#1.00CD: 127 Normal [facility] Alanine aminotransferase [En zymatic activity/volume] in Serum or PlasmaOrdered By: Declan Marina on 09-06-2022 ALT [Catalytic activity/Vol] 54 U/L High 7-52 [facility] [place] Comment on above: Performed By: #### C MP, LIPASE, CBC #### [facility] [address] Albumin [Mass/volume] in Ser um or Plasma by Bromocresol green (BCG) dye binding methoOrdered By: Declan Marina on 09-06-2022 Albumin BCG dye [Mass/Vol] 4.2 g/dL 3.5-5.7 [facility] [place] Alkaline phosphatase [Enzyma tic activity/volume] in Serum or PlasmaOrdered By: Declan Marina on 09-06-2022 ALP [Catalytic activity/Vol] 106 U/L High 34-104 [facility] [place] Comment on above: Performed By: #### C MP, LIPASE, CBC #### [facility] [address] Amphetamine Screen Ql (U)Ord ered By: Declan Marina on 09-06-2022 Amphetamines Ql (U) Negative Negative [facility] Aspartate aminotransferase [ Enzymatic activity/volume] in Serum or PlasmaOrdered By: Declan Marina on 09-06-2022 AST [Catalytic activity/Vol] 80 U/L High 13-39 [facility] [place] Comment on above: Performed By: #### C MP, LIPASE, CBC #### [facility] [address] [place] [address] [place] Automated basophil %Ordered By: Declan Marina on 09-06-2022 Basophils/100 WBC (Bld) 0.7 % Normal . [facility] [place] Comment on above: Performed By: #### E ODALIS, MG, CMP, CBC #### [address] Automated basophil countOrde red By: Declan Marina on 09-06-2022 Basophils (Bld) [#/Vol] 0.1 10*3/uL Normal 0.0-0.2 [facility] [place] Comment on above: Result Comment: PERF ORMED BY: [place] [address] PATHOLOGIST DIRECTOR OF GLOBAL TALENT LEE CARDOSO M.D. Performed By: #### E ODALIS, MG, CMP, CBC #### [address] Automated blood monocyte cou ntOrdered By: Declan Marina on 09-06-2022 Monocytes (Bld) [#/Vol] 0.3 10*3/uL Normal 0.0-0.8 [facility] [place] Comment on above: Performed By: #### E ODALIS, MG, CMP, CBC #### [facility] [address] [place] [address] Automated eosinophil %Ordere d By: Declan Marina on 09-06-2022 Eosinophils/100 WBC (Bld) 0.2 % Normal . [facility] [place] Comment on above: Performed By: #### E ODALIS, MG, CMP, CBC #### [address] Automated eosinophil countOr dered By: Declan Marina on 09-06-2022 Eosinophils (Bld) [#/Vol] 0.0 10*3/uL Normal 0.0-0.45 [facility] [place] Comment on above: Performed By: #### E ODALIS, MG, CMP, CBC #### [address] Automated erythrocytes count in urine sediment (number/area)Ordered By: Declan Marina on 09-06-2022 RBC Auto (Urine sed) [#/Area] None seen [HPF] 0-4 [facility] [place] Automated leukocytes count i n urine sediment (number/area)Ordered By: Declan Marina on 09-06-2022 WBC Auto (Urine sed) [#/Area] 0-1 [HPF] 0-4 [facility] [place] Automated monocyte %Ordered By: Declan Marina on 09-06-2022 Monocytes/100 WBC (Bld) 3.0 % Normal . [facility] [place] Comment on above: Performed By: #### E ODALIS, MG, CMP, CBC #### [facility] [address] Automated neutrophil %Ordere d By: Declan Marina on 09-06-2022 Neutrophils/100 WBC (Bld) 80.0 % Normal . [facility] [place] Comment on above: Performed By: #### E ODALIS, MG, CMP, CBC #### [facility] [address] Automated urine color determ inationOrdered By: Declan Marina on 09-06-2022 Color (U) Yellow Normal Yellow [facility] [place] Comment on above: Order Comment: Name Collection Type:: Clean-Voided Midstream Performed By: #### C MP, LIPASE, CBC #### [facility] [address] Barbiturates [Presence] in U rine by Screen methodOrdered By: Declan Marina on 09-06-2022 Barbiturates Screen Ql (U) Negative Negative [facility] [place] Benzodiazepines Screen Ql (U )Ordered By: Declan Marina on 09-06-2022 Benzodiazepines Ql (U) Negative Negative [facility] [place] Benzoylecgonine [Presence] i n Urine by Screen methodOrdered By: Declan Marina on 09-06-2022 Benzoylecgonine Screen Ql (U) Negative Negative [facility] Bilirubin Test strip Ql (U)O rdered By: Declan Marina on 09-06-2022 Bilirubin Ql (U) Negative Negative [facility] Bilirubin.total [Mass/volume ] in Serum or PlasmaOrdered By: Declan Marina on 09-06-2022 Bilirubin [Mass/Vol] 0.6 mg/dL Normal 0.3-1.0 [facility] Comment on above: Performed By: #### C MP, LIPASE, CBC #### [facility] [address] Calcium [Mass/volume] in Ser um or PlasmaOrdered By: Declan Marina on 09-06-2022 Calcium [Mass/Vol] 9.6 mg/dL Normal 8.6-10.3 [facility] Comment on above: Performed By: #### C MP, LIPASE, CBC #### [address] Cannabinoids [Presence] in U rine by Screen methodOrdered By: Declan Marina on 09-06-2022 Cannabinoids Screen Ql (U) Negative Negative [facility] [place] Comment on above: These are unconfirme d results and should not be used for legal purposes. Drug Cut-Off Concentration: AMPH 1000 ng/mL JANELL 200 ng/mL JAMES 200 ng/mL COCM 300 ng/mL OP 300 ng/mL PCP 25 ng/mL THC 20 ng/mL Carbon dioxide, total [Moles /volume] in Serum or PlasmaOrdered By: Declan Marina on 09-06-2022 CO2 [Moles/Vol] 27.1 mmol/L Normal 21.0-31.0 [facility] Comment on above: Performed By: #### C MP, LIPASE, CBC #### [address] Chloride [Moles/volume] in S marbella or PlasmaOrdered By: Declan Marina on 09-06-2022 Chloride [Moles/Vol] 98 mmol/L Normal 98-107 [facility] Comment on above: Performed By: #### C MP, LIPASE, CBC #### [address] Complete Blood Count Auto Di ffon 09-06-2022 Mean Corpuscular HGB Conc 34.1 g/dL Normal 32.0-35.0 [facility] Comment on above: Performed By: #### E ODALIS, MG, CMP, CBC #### [place] [address] [place] Monocytes/100 WBC (Bld) 15.56 % Normal 0.00-20.00 [facility] Comment on above: Performed By: #### E ODALIS, MG, CMP, CBC #### [address] NRBC% 0.1 /100{WBC} Normal 0-0.5 [facility] Comment on above: Performed By: #### E ODALIS, MG, CMP, CBC #### [address] Comprehensive Metabolic Pane mary beth 09-06-2022 Albumin [Mass/Vol] 4.2 g/dL Normal 3.5-5.7 [facility] Comment on above: Performed By: #### C MP, LIPASE, CBC #### [address] Creatinine Clr Calc Pharmacy 149.26 Normal [facility] Comment on above: Performed By: #### C MP, LIPASE, CBC #### [address] GFR/1.73 sq M.predicted MDRD (S/P/Bld) [Vol rate/Area] mL/min/{1.73_m2} Normal [facility] Comment on above: Performed By: #### C MP, LIPASE, CBC #### [address] Creatinine [Mass/volume] in Serum or PlasmaOrdered By: Declan Marina on 09-06-2022 Creatinine [Mass/Vol] 0.51 mg/dL Low 0.60-1.20 [facility] Comment on above: Performed By: #### C MP, LIPASE, CBC #### [address] Dipstick and Microscopicon 0 09-06-2022 Appearance (U) Clear Normal Clear [facility] Comment on above: Order Comment: Name Collection Type:: Clean-Voided Midstream Performed By: #### C MP, LIPASE, CBC #### [address] Bacteria,Urine 1+ High None Seen [facility] Comment on above: Order Comment: Name Collection Type:: Clean-Voided Midstream Performed By: #### C MP, LIPASE, CBC #### [place] [address] [place] Bilirubin,Urine Negative Normal Negative [facility] Comment on above: Order Comment: Name Collection Type:: Clean-Voided Midstream Performed By: #### C MP, LIPASE, CBC #### [address] Glucose Ql (U) Normal Normal Normal [facility] Comment on above: Order Comment: Name Collection Type:: Clean-Voided Midstream Performed By: #### C MP, LIPASE, CBC #### [place] [address] [place] Hyaline Casts,Urine 0-8 Normal 0-8 [facility] Comment on above: Order Comment: Name Collection Type:: Clean-Voided Midstream Result Comment: PERF ORMED BY: [place] [address] PATHOLOGIST DIRECTOR OF GLOBAL TALENT LEE CARDOSO M.D. Performed By: #### C MP, LIPASE, CBC #### [address] Ketones Ql (U) Negative Normal Negative [facility] Comment on above: Order Comment: Name Collection Type:: Clean-Voided Midstream Performed By: #### C MP, LIPASE, CBC #### [address] Leukocyte esterase Test strip Ql (U) 1+ High Negative [facility] Comment on above: Order Comment: Name Collection Type:: Clean-Voided Midstream Performed By: #### C MP, LIPASE, CBC #### [place] [address] [place] Nitrite,Urine Negative Normal Negative [facility] Comment on above: Order Comment: Name Collection Type:: Clean-Voided Midstream Performed By: #### C MP, LIPASE, CBC #### [place] [address] [place] Occult Blood,Urine 2+ High Negative [facility] Comment on above: Order Comment: Name Collection Type:: Clean-Voided Midstream Result Comment: PERF ORMED BY: [place] [address] PATHOLOGIST DIRECTOR OF GLOBAL TALENT LEE CARDOSO M.D. Performed By: #### C MP, LIPASE, CBC #### [address] Protein,Urine Trace High Negative [facility] Comment on above: Order Comment: Name Collection Type:: Clean-Voided Midstream Performed By: #### C MP, LIPASE, CBC #### [address] RBC,Urine None Seen Normal 0-4 [facility] Comment on above: Order Comment: Name Collection Type:: Clean-Voided Midstream Performed By: #### C MP, LIPASE, CBC #### [address] Specificy [place],Urine 1.012 Normal 1.001-1.030 [facility] Comment on above: Order Comment: Name Collection Type:: Clean-Voided Midstream Performed By: #### C MP, LIPASE, CBC #### [address] Squamous Epithelial Cell,Urine 3-4 High 0-2 [facility] Comment on above: Order Comment: Name Collection Type:: Clean-Voided Midstream Performed By: #### C MP, LIPASE, CBC #### [address] Urobilinogen,Urine Normal Normal Normal [facility] Comment on above: Order Comment: Name Collection Type:: Clean-Voided Midstream Performed By: #### C MP, LIPASE, CBC #### [address] WBC LM.HPF (Urine sed) [#/Area] 0 /[HPF] Normal 0-4 [facility] Comment on above: Order Comment: Name Collection Type:: Clean-Voided Midstream Performed By: #### C MP, LIPASE, CBC #### [address] Drug Screen,Urineon 09-07-19 Amphetamine Screen,Urine Negative Normal Negative [facility] Comment on above: Performed By: #### C MP, LIPASE, CBC #### [address] Barbiturate Screen,Urine Negative Normal Negative [facility] Comment on above: Performed By: #### C MP, LIPASE, CBC #### [address] Benzodiazepines Screen,Urine Negative Normal Negative [facility] Comment on above: Performed By: #### C MP, LIPASE, CBC #### [address] Cannabinoid Screen,Urine Negative Normal Negative [facility] Comment on above: Result Comment: Thes e are unconfirmed results and should not be used for legal purposes. Drug Cut-Off Concentration: AMPH 1000 ng/mL JANELL 200 ng/mL JAMES 200 ng/mL COCM 300 ng/mL OP 300 ng/mL PCP 25 ng/mL THC 20 ng/mL PERFORMED BY: [place] [address] PATHOLOGIST DIRECTOR OF GLOBAL TALENT LEE CARDOSO M.D. Performed By: #### C MP, LIPASE, CBC #### [address] Cocaine Screen,Urine Negative Normal Negative [facility] Comment on above: Performed By: #### C MP, LIPASE, CBC #### [address] Opiate Screen,Urine Negative Normal Negative [facility] Comment on above: Performed By: #### C MP, LIPASE, CBC #### [address] Phencyclidine Screen,Urine Negative Normal Negative [facility] Comment on above: Performed By: #### C MP, LIPASE, CBC #### [address] Erythrocyte distribution wid th [Ratio] by Automated countOrdered By: Declan Marina on 09-06-2022 Erythrocyte distribution width (RBC) [Ratio] 14.2 % Normal 11.9-15.3 [facility] Comment on above: Performed By: #### E ODALIS, MG, CMP, CBC #### [facility] [address] [place] [address] [place] Erythrocytes [#/volume] in B lood by Automated countOrdered By: Declan Marina on 09-06-2022 RBC (Bld) [#/Vol] 4.62 10*6/uL Normal 3.60-5.00 [facility] Comment on above: Performed By: #### E ODALIS, MG, CMP, CBC #### [facility] [address] [place] [address] [place] Ethanol [Mass/volume] in Ser um or PlasmaOrdered By: Declan Marina on 09-06-2022 Ethanol [Mass/Vol] mg/dL Normal [facility] Comment on above: Performed By: #### C MP, LIPASE, CBC #### [facility] [address] [place] [address] [place] Ethanol [Mass/Vol] TNP [facility] Comment on above: Test not performed Ethyl Alcohol Profileon 08-12 Percent Ethanol Not performed Normal [facility] Comment on above: Result Comment: PERF ORMED BY: [place] [address] PATHOLOGIST DIRECTOR OF GLOBAL TALENT LEE CARDOSO M.D. Performed By: #### C MP, LIPASE, CBC #### [facility] [address] [place] [address] [place] Glucose [Mass/volume] in Ser um or PlasmaOrdered By: Declan Marina on 09-06-2022 Glucose [Mass/Vol] 95 mg/dL Normal 70-100 [facility] Comment on above: ADA recommended refe rence rangeRandom Glucose Reference Range is dependent on time and content of last meal. Glucose of more than 200 mg/dL in a nonstressed, ambulatory subject supports the diagnosis of Diabetes Mellitus. Result Comment: [place] om Glucose Reference Range is dependent on time and content of last meal. Glucose of more than 200 mg/dL in a nonstressed, ambulatory subject supports the diagnosis of Diabetes Mellitus. ADA recommended reference range Performed By: #### C MP, LIPASE, CBC #### [facility] [address] Hematocrit [Volume Fraction] of Blood by Automated countOrdered By: Declan Marina on 09-06-2022 Hematocrit (Bld) [Volume fraction] 43.2 % Normal 34.0-46.4 [facility] Comment on above: Performed By: #### E ODALIS, MG, CMP, CBC #### [address] Hemoglobin [Mass/volume] in BloodOrdered By: Declan Marina on 09-06-2022 Hemoglobin (Bld) [Mass/Vol] 14.7 g/dL Normal 11.8-15.4 [facility] Comment on above: Performed By: #### E ODALIS, MG, CMP, CBC #### [address] Ketones Auto test strip (U) [Mass/Vol]Ordered By: Declan Marina on 09-06-2022 Ketones (U) [Mass/Vol] Negative Negative [facility] Laboratory - UrinalysisOrder ed By: Declan Marina on 09-06-2022 Hyaline casts LM Ql (Urine sed) 0-8 [LPF] 0-8 [facility] Leukocytes [#/volume] correc jose for nucleated erythrocytes in Blood by Automated counOrdered By: Declan Marina on 09-06-2022 WBC corrected for nucl RBC Auto (Bld) [#/Vol] 9.5 10*3/uL 3.8-11.6 [facility] Leukocytes [#/volume] in Blo od by Automated countOrdered By: Declan Marina on 09-06-2022 WBC (Bld) [#/Vol] 9.5 10*3/uL Normal 3.8-11.6 [facility] Comment on above: Performed By: #### E ODALIS, MG, CMP, CBC #### [address] Lymphocytes [#/volume] in Bl ood by Automated countOrdered By: Declan Marina on 09-06-2022 Lymphocytes (Bld) [#/Vol] 1.5 10*3/uL Normal 1.00-4.8 [facility] Comment on above: Performed By: #### E ODALIS, MG, CMP, CBC #### [facility] [address] [place] [address] Lymphocytes/100 leukocytes i n Blood by Automated countOrdered By: Declan Marina on 09-06-2022 Lymphocytes/100 WBC (Bld) 16.1 % Normal . [facility] Comment on above: Performed By: #### E ODALIS, MG, CMP, CBC #### [facility] [address] [place] [address] MCH [Entitic mass] by Automa jose countOrdered By: Declan Marina on 09-06-2022 MCH (RBC) [Entitic mass] 31.9 pg Normal 24.7-34.3 [facility] Comment on above: Performed By: #### E ODALIS, MG, CMP, CBC #### [address] MCHC Auto (RBC) [Mass/Vol]Or dered By: Declan Marina on 09-06-2022 MCHC (RBC) [Mass/Vol] 34.1 g/dL 32.0-35.0 [facility] MCV [Entitic volume] by Auto mated countOrdered By: Declan Marina on 09-06-2022 MCV (RBC) [Entitic vol] 93.6 fL Normal 80-100 [facility] Comment on above: Performed By: #### E ODALIS, MG, CMP, CBC #### [facility] [address] [place] [address] Magnesium [Mass/volume] in S marbella or PlasmaOrdered By: Declan Marina on 09-06-2022 Magnesium [Mass/Vol] 1.3 mg/dL Low 1.9-2.7 [facility] Comment on above: Result Comment: PERF ORMED BY: [place] [address] PATHOLOGIST DIRECTOR OF GLOBAL TALENT LEE CARDOSO M.D. Performed By: #### C MP, LIPASE, CBC #### [facility] [address] Monocyte distribution width [Entitic volume] in Blood by AutomatedOrdered By: Declan Marina on 09-06-2022 Monocyte distribution width Auto (Bld) [Entitic vol] 15.56 % 0.00-20.00 [facility] Neutrophils [#/volume] in Bl ood by Automated countOrdered By: Declan Marina on 09-06-2022 Neutrophils (Bld) [#/Vol] 7.6 10*3/uL Normal 1.8-7.7 [facility] Comment on above: Performed By: #### E ODALIS, MG, CMP, CBC #### [facility] [address] [place] [address] Nitrite Test strip Ql (U)Ord ered By: Declan Marina on 09-06-2022 Nitrite Ql (U) Negative Negative [facility] [place] No Panel InformationOrdered By: Declan Marina on 09-06-2022 Estimated GFR (CKD-EPI) > 60.0 mL/Min [facility] [place] Creatinine Clearance (Chem 149.26 [facility] Nucleated erythrocytes [Pres ence] in Blood by Automated countOrdered By: Declan Marina on 09-06-2022 Nucleated RBC Auto Ql (Bld) 0.1 /100{WBC} 0-0.5 [facility] Opiates [Presence] in Urine by Screen methodOrdered By: Declan Marina on 09-06-2022 Opiates Screen Ql (U) Negative Negative [facility] Phencyclidine Screen Ql (U)O rdered By: Declan Marina on 09-06-2022 Phencyclidine Ql (U) Negative Negative [facility] Platelet mean volume [Entiti c volume] in Blood by Automated countOrdered By: Declan Marina on 09-06-2022 Platelet mean volume (Bld) [Entitic vol] 7.7 fL Normal 6.3-10.7 [facility] [place] Comment on above: Performed By: #### E ODALIS, MG, CMP, CBC #### [facility] [address] [place] [address] Platelets [#/volume] in Bloo d by Automated countOrdered By: Declan Marina on 09-06-2022 Platelets (Bld) [#/Vol] 230 10*3/uL Normal 150-450 [facility] Comment on above: Performed By: #### E ODALIS, MG, CMP, CBC #### [address] Potassium [Moles/volume] in Serum or PlasmaOrdered By: Declan Marina on 09-06-2022 Potassium [Moles/Vol] 4.1 mmol/L Normal 3.5-5.1 [facility] Comment on above: Performed By: #### C MP, LIPASE, CBC #### [address] Protein Auto test strip (U) [Mass/Vol]Ordered By: Declan Marina on 09-06-2022 Protein (U) [Mass/Vol] Trace mg/dL Negative [facility] Protein [Mass/volume] in Ser um or PlasmaOrdered By: Declan Marina on 09-06-2022 Protein [Mass/Vol] 8.1 g/dL Normal 6.4-8.9 [facility] Comment on above: Performed By: #### C MP, LIPASE, CBC #### [address] Serum globulin measurement b y calculation (mass/volume)Ordered By: Declan Marina on 09-06-2022 Globulin (S) [Mass/Vol] 3.9 g/dL [facility] Comment on above: Performed By: #### C MP, LIPASE, CBC #### [address] Serum or plasma albumin/glob ulin mass ratioOrdered By: Declan Marina on 09-06-2022 Albumin/Globulin [Mass ratio] 1.1 {ratio} [facility] Comment on above: Performed By: #### C MP, LIPASE, CBC #### [address] Serum or plasma anion gap de terminationOrdered By: Declna Marina on 09-06-2022 Anion gap [Moles/Vol] 12.0 mmol/L Normal 6.0-15.0 [facility] Comment on above: Performed By: #### C MP, LIPASE, CBC #### [facility] [address] [place] [address] [place] Sodium [Moles/volume] in Ser um or PlasmaOrdered By: Declan Marina on 09-06-2022 Sodium [Moles/Vol] 133 mmol/L Low 136-145 [facility] Comment on above: Performed By: #### C MP, LIPASE, CBC #### [facility] [address] Specific gravity Auto test s trip (U) [Rel density]Ordered By: Declan Marina on 09-06-2022 Specific gravity (U) [Rel density] 1.012 1.001-1.030 [facility] Squamous epithelial cells de tection in urine sediment by light microscopyOrdered By: Declan Marina on 09-06-2022 Epithelial cells.squamous LM Ql (Urine sed) 3-4 [HPF] 0-2 [facility] Urea nitrogen [Mass/volume] in Serum or PlasmaOrdered By: Declan Marina on 09-06-2022 Urea nitrogen [Mass/Vol] 8 mg/dL Normal 7-25 [facility] Comment on above: Performed By: #### C MP, LIPASE, CBC #### [facility] [address] [place] [address] Urine bacteria detection by automated methodOrdered By: Declan Marina on 09-06-2022 Bacteria Auto Ql (U) 1+ None Seen [facility] Urine clarity by refractomet ry automatedOrdered By: Declan Marina on 09-06-2022 Clarity Refractometry automated (U) Clear Clear [facility] Urine glucose measurement by automated test strip (mass/volume)Ordered By: Declan Marina on 09-06-2022 Glucose Auto test strip (U) [Mass/Vol] Normal mg/dL Normal [facility] Urine hemoglobin detection b y automated test stripOrdered By: Declan Marina on 09-06-2022 Hemoglobin Auto test strip Ql (U) 2+ Negative [facility] Urine leukocyte esterase det ection by automated test stripOrdered By: Declan Marina on 09-06-2022 Leukocyte esterase Auto test strip Ql (U) 1+ Negative [facility] Urine pH measurement by auto mated test stripOrdered By: Declan Marina on 09-06-2022 pH (U) 8.5 [pH] Normal 5.0-9.0 [facility] Comment on above: Order Comment: Name Collection Type:: Clean-Voided Midstream Performed By: #### C MP, LIPASE, CBC #### [facility] [address] Urobilinogen Auto test strip (U) [Mass/Vol]Ordered By: Declan Marina on 09-06-2022 Urobilinogen (U) [Mass/Vol] Normal mg/dL Normal [facility] Provider Letteron 09-04-2022 Provider Letter Normal [facility] Ambulatory Visit Summaryon 0 08-28-2022 Ambulatory Visit Summary Normal [facility] Family Medicine Office/Clini c Noteon 08-28-2022 Family Medicine Office/Clinic Note Normal [facility] Comment on above: Result Comment: Elec tronically Signed By: Lorie Morocho MD\.br\Date and Time Signed: 08/28/22 10:20 EDT Discharge Instructionson Discharge Instructions [id number]: 127 Normal [facility] Discharge Note-Nursingon Discharge Note-Nursing [facility] Patient Education - Texton 0 08-18-2022 Patient Education - Text [facility] Progress Note-Physicianon Progress Note-Physician [facility] Comment on above: Result Comment: Elec tronically Signed By: Luciana Qureshi RN\.br\Date and Time Signed: 08/18/22 09:11 EDT\.br\Electronically Co-Signed By: Jonathan Patel DO\.br\Date and Time Co-Signed: 08/18/22 09:41 EDT Valuables Checkliston 2022 Valuables Checklist [id number] :127 Normal [facility] Acetamnphn Lvlon 08-17-2022 Acetaminophen [Mass/Vol] ug/mL Low 15-30 [facility] Comment on above: Performed By: #### 1 3732086, 8761534, 9832123, 9215514, 8449495, 92267162, 9490281, 5236938, 24638756, 9977281 ####[facility] [address] [place] [address] Ammoniaon 08-17-2022 Ammonia (P) [Moles/Vol] 43 mcmol High 11-35 [facility] Comment on above: Performed By: #### 2 215766, 0171784, 0551140, 82398048, 1832723, 6075886, 90334290, 16892227 ####[facility] [address] [place] [address] Ammonia (P) [Moles/Vol] [address] [facility] Comment on above: Performed By: #### 1 6632476, 3492280, 3691140, 1723769, 9654354, 61474383, 6893249, 0956960, 86441965, 5740317 ####[facility] [address] [place] [address] Auto Diffon 08-17-2022 Basophils/100 WBC (Bld) 0.3 % Normal 0.0-2.0 [facility] Comment on above: Order Comment: Order Added by Discern Expert. Performed By: #### 2 074922, 0030655, 4541804, 88762426, 3837657, 6389557, 50154521, 67048538 ####[facility] [address] [place] [address] Basophils/Leukocytes Auto (Bld) [Pure # fraction] 0.0 E9/L Normal 0.0-0.2 [facility] Comment on above: Order Comment: Order Added by Discern Expert. Performed By: #### 2 061623, 0902184, 0980632, 62968444, 5786437, 8704651, 15621502, 14599003 ####[address] [place] [address] Eosinophils/100 WBC (Bld) 0.4 % Normal 0.0-8.0 [facility] Comment on above: Order Comment: Order Added by Discern Expert. Performed By: #### 2 409345, 4711440, 8930468, 17775275, 9875370, 7796831, 41710750, 11206264 ####[address] [address] Eosinophils/Leukocyte s Auto (Bld) [Pure # fraction] 0.0 E9/L Normal 0.0-0.5 [facility] Comment on above: Order Comment: Order Added by Discern Expert. Performed By: #### 2 205541, 7961915, 0929311, 84578967, 9214436, 1946551, 60545131, 62661514 ####[address] [address] Lymphocytes/100 WBC (Bld) 33.9 % Normal 14.0-50.0 [facility] Comment on above: Order Comment: Order Added by Discern Expert. Performed By: #### 2 003910, 2632858, 8776798, 74014480, 9349059, 8883682, 48624238, 08724519 ####[address] [place] [address] Lymphocytes/Leukocyte s Auto (Bld) [Pure # fraction] 2.3 E9/L Normal 1.0-4.0 [facility] Comment on above: Order Comment: Order Added by Discern Expert. Performed By: #### 2 395707, 2314024, 7696527, 64226630, 0028491, 0286798, 39100162, 33731787 ####[address] [place] [address] Monocytes/100 WBC (Bld) 7.0 % Normal 4.0-14.0 [facility] Comment on above: Order Comment: Order Added by Discern Expert. Performed By: #### 2 680569, 6101454, 1616889, 83019665, 8025555, 8012096, 44996072, 33427015 ####[address] [place] [address] Monocytes/Leukocytes Auto (Bld) [Pure # fraction] 0.5 E9/L Normal 0.2-1.0 [facility] Comment on above: Order Comment: Order Added by Discern Expert. Performed By: #### 2 007054, 5110262, 0653629, 12616735, 7306105, 9187658, 03014966, 74275407 ####[address] [place] [address] Neutrophils/100 WBC (Bld) 58.4 % Normal 36.0-75.0 [facility] Comment on above: Order Comment: Order Added by Discern Expert. Performed By: #### 2 101795, 6906388, 3100020, 41363694, 5575613, 7789764, 79437202, 90689134 ####[address] [place] [address] Neutrophils/Leukocyte s Auto (Bld) [Pure # fraction] 4.0 E9/L Normal 2.0-7.5 [facility] Comment on above: Order Comment: Order Added by Discern Expert. Performed By: #### 2 915993, 4429853, 2312614, 35261230, 9038572, 2006255, 25921329, 60246301 ####[address] [place] [address] Basophils/100 WBC (Bld) 0.9 % Normal 0.0-2.0 [facility] Comment on above: Order Comment: Order Added by Discern Expert. Performed By: #### 1 3107003, 5503988, 9802119, 9205328, 1220726, 17648994, 4410366, 4892032, 59475002, 7313981 ####[address] [place] [address] Basophils/Leukocytes Auto (Bld) [Pure # fraction] 0.1 E9/L Normal 0.0-0.2 [facility] Comment on above: Order Comment: Order Added by Discern Expert. Performed By: #### 1 7098068, 1360029, 8560211, 5046607, 5401329, 49477906, 9772200, 8976461, 34222130, 5254806 ####[facility] [address] [place] [address] Eosinophils/100 WBC (Bld) 1.1 % Normal 0.0-8.0 [facility] Comment on above: Order Comment: Order Added by Discern Expert. Performed By: #### 1 9573094, 8258472, 8396957, 7137645, 1554893, 40283478, 9311612, 1096452, 61108974, 5914381 ####[address] [place] [address] Eosinophils/Leukocyte s Auto (Bld) [Pure # fraction] 0.1 E9/L Normal 0.0-0.5 [facility] Comment on above: Order Comment: Order Added by Discern Expert. Performed By: #### 1 5686669, 9801137, 3057858, 6676840, 9202451, 08998394, 9283982, 2773790, 45492621, 3511213 ####[address] [place] [address] Lymphocytes/100 WBC (Bld) 41.5 % Normal 14.0-50.0 [facility] Comment on above: Order Comment: Order Added by Discern Expert. Performed By: #### 1 9927245, 0136608, 4155910, 2098381, 7270133, 92185395, 4076981, 4917359, 65035689, 4778696 ####[address] [place] [address] Lymphocytes/Leukocyte s Auto (Bld) [Pure # fraction] 5.2 E9/L High 1.0-4.0 [facility] Comment on above: Order Comment: Order Added by Discern Expert. Performed By: #### 1 3065157, 5789604, 2276687, 0654777, 6424553, 37132098, 9423111, 8325677, 38704265, 9103828 ####[facility] [address] [place] [address] Monocytes/100 WBC (Bld) 10.0 % Normal 4.0-14.0 [facility] Comment on above: Order Comment: Order Added by Discern Expert. Performed By: #### 1 4080281, 7808091, 2383599, 7065457, 3719712, 68391190, 3351756, 5995783, 09537676, 9014596 ####[address] [place] [address] Monocytes/Leukocytes Auto (Bld) [Pure # fraction] 1.3 E9/L High 0.2-1.0 [facility] Comment on above: Order Comment: Order Added by Discern Expert. Performed By: #### 1 3489893, 8424066, 3941675, 4509492, 6709107, 92915018, 4482826, 0875959, 99863756, 6948146 ####[address] [address] Neutrophils/100 WBC (Bld) 46.5 % Normal 36.0-75.0 [facility] Comment on above: Order Comment: Order Added by Discern Expert. Performed By: #### 1 1478608, 1285100, 6291323, 8447812, 6415201, 83415945, 8518929, 1325792, 09727467, 4709713 ####[address] [place] [address] Neutrophils/Leukocyte s Auto (Bld) [Pure # fraction] 5.8 E9/L Normal 2.0-7.5 [facility] Comment on above: Order Comment: Order Added by Discern Expert. Performed By: #### 1 4834435, 3158586, 5404288, 4403563, 9342878, 73279740, 8998969, 3831942, 36093213, 2051264 ####[address] [place] [address] B hCG Qualon 08-17-2022 Beta hCG Ql Negative Normal [facility] Comment on above: Performed By: #### 1 4299127, 9237164, 0680120, 8719262, 7440599, 56609537, 0632290, 6947745, 24161072, 6617945 ####[facility] [address] [place] [address] BMPon 08-17-2022 Anion gap [Moles/Vol] 12 mmol/L Normal 6-16 [facility] Comment on above: Performed By: #### 2 198553, 4340293, 2545966, 19229289, 5663063, 3757261, 56247170, 64206249 ####[facility] [address] [place] [address] Calcium [Mass/Vol] 8.6 mg/dL Low 8.9-11.1 [facility] Comment on above: Performed By: #### 2 929405, 9802339, 9855888, 20867934, 2526085, 4420074, 43802839, 76214154 ####[facility] [address] [place] [address] Chloride [Moles/Vol] 106 mmol/L Normal 101-111 [facility] Comment on above: Performed By: #### 2 443326, 5242606, 4401885, 88672217, 9793412, 7620607, 15320900, 99332423 ####[facility] [address] [place] [address] CO2 [Moles/Vol] 22 mmol/L Normal 21-31 [facility] Comment on above: Performed By: #### 2 158873, 1607999, 6603245, 45133743, 9164254, 5837806, 12960184, 05352916 ####[facility] [address] [place] [address] Creatinine [Mass/Vol] 0.7 mg/dL Normal 0.5-1.3 [facility] Comment on above: Performed By: #### 2 789364, 6396050, 5015180, 93506167, 4941715, 6244597, 78715536, 56120660 ####[facility] [address] [place] [address] Glucose [Mass/Vol] 90 mg/dL Normal 55-199 [facility] Comment on above: Result Comment: If t his glucose result represents a fasting glucose, interpretation should refer to the following reference range: 55-99 mg/dL Performed By: #### 2 892055, 5359242, 9436992, 01409473, 1699268, 2463446, 53604076, 90112081 ####[facility] [address] [place] [address] Potassium [Moles/Vol] 4.2 mmol/L Normal 3.5-5.3 [facility] Comment on above: Performed By: #### 2 150615, 6741440, 3623004, 76877015, 1005889, 3609918, 96417497, 09403907 ####[facility] [address] [place] [address] Sodium [Moles/Vol] 136 mmol/L Normal 135-145 [facility] Comment on above: Performed By: #### 2 657261, 1141141, 3576837, 76658405, 9631704, 6284179, 82680582, 16077555 ####[facility] [address] [place] [address] Urea nitrogen [Mass/Vol] 18 mg/dL Normal 5-21 [facility] Comment on above: Performed By: #### 2 657314, 7541963, 4572424, 34466387, 2459183, 0528431, 21770581, 21085110 ####[facility] [address] [place] [address] Urea nitrogen/Creatinine [Mass ratio] 26 No Units High 10-20 [facility] Comment on above: Performed By: #### 2 387183, 9303747, 1394752, 22381244, 8214551, 3168773, 87004320, 05045057 ####[facility] [address] [place] [address] Creatinine [Mass/Vol] 1.1 mg/dL Normal 0.5-1.3 [facility] Comment on above: Performed By: #### 1 3303214, 0523643, 2861798, 6435390, 8430267, 78190411, 3816076, 6906820, 99240149, 4194199 ####[facility] [address] [place] [address] Urea nitrogen [Mass/Vol] 27 mg/dL High 5-21 [facility] Comment on above: Performed By: #### 1 2835603, 1877880, 0764890, 6697432, 4015647, 34362865, 7744932, 1884975, 48952023, 4399919 ####[facility] [address] [place] [address] Urea nitrogen/Creatinine [Mass ratio] 24 No Units High 10-20 [facility] Comment on above: Performed By: #### 1 6346110, 8543250, 2532859, 5508566, 7140352, 35722750, 1162734, 8154481, 95086660, 7036409 ####[facility] [address] [place] [address] Anion gap [Moles/Vol] 15 mmol/L Normal 6-16 [facility] Comment on above: Performed By: #### 1 0173808, 2511937, 1754577, 9542715, 5476913, 61011708, 6018022, 3394462, 20838923, 4259489 ####[facility] [address] [place] [address] Calcium [Mass/Vol] 9.2 mg/dL Normal 8.9-11.1 [facility] Comment on above: Performed By: #### 1 2501350, 3884918, 4447578, 2107435, 7120920, 24891941, 4932478, 3462611, 73017706, 7024933 ####[facility] [address] [place] [address] Chloride [Moles/Vol] 103 mmol/L Normal 101-111 [facility] Comment on above: Performed By: #### 1 7171185, 2830743, 1214314, 2997081, 4066946, 95528079, 3500765, 9872462, 76179628, 0889407 ####[facility] [address] [place] [address] CO2 [Moles/Vol] 22 mmol/L Normal 21-31 [facility] Comment on above: Performed By: #### 1 0197598, 4817469, 5492491, 9981560, 4863617, 06375675, 7111181, 9541501, 67489064, 4190351 ####[facility] [address] [place] [address] Glucose [Mass/Vol] 64 mg/dL Normal 55-199 [facility] Comment on above: Result Comment: If t his glucose result represents a fasting glucose, interpretation should refer to the following reference range: 55-99 mg/dL Performed By: #### 1 7912444, 6089318, 5187222, 2539032, 7736547, 08021581, 0744324, 3809893, 46251319, 3567370 ####[facility] [address] [place] [address] Potassium [Moles/Vol] 3.7 mmol/L Normal 3.5-5.3 [facility] Comment on above: Performed By: #### 1 4906395, 8959398, 7412765, 2299338, 1519253, 08023031, 2426683, 0188880, 16396649, 1156892 ####[facility] [address] [place] [address] Sodium [Moles/Vol] 136 mmol/L Normal 135-145 [facility] Comment on above: Performed By: #### 1 1986595, 4997010, 5759678, 6618292, 2421462, 18618798, 8520912, 3828295, 32092709, 5646946 ####[address] [place] [address] CBC w/ Auto Diffon 3 Erythrocyte distribution width (RBC) [Ratio] 14.0 % Normal 10.9-14.2 [facility] Comment on above: Performed By: #### 2 869218, 8216475, 1230162, 11114110, 2348533, 7575939, 72968592, 16623920 ####[address] [place] [address] Hematocrit (Bld) [Volume fraction] 39.1 % Normal 34.0-46.0 [facility] Comment on above: Performed By: #### 2 859514, 8970181, 4795989, 22966195, 2946788, 4993044, 34498807, 28841369 ####[address] [place] [address] Hemoglobin (Bld) [Mass/Vol] 13.3 g/dL Normal 12.0-16.0 [facility] Comment on above: Performed By: #### 2 096028, 2211155, 5210860, 29995669, 5642329, 5222616, 59214770, 90997049 ####[address] [place] [address] MCH (RBC) [Entitic mass] 31.4 pg Normal 27.0-34.0 [facility] Comment on above: Performed By: #### 2 210113, 9312021, 2805627, 34997017, 9904444, 7619006, 92128760, 23833294 ####[facility] [address] [place] [address] MCHC (RBC) [Mass/Vol] 34.2 g/dL Normal 31.4-36.0 [facility] Comment on above: Performed By: #### 2 784116, 9918701, 1742302, 79795496, 6746123, 5264284, 19279084, 71472289 ####[address] [place] [address] MCV (RBC) [Entitic vol] 91.9 fL Normal 80.0-100.0 [facility] Comment on above: Performed By: #### 2 340928, 8462638, 3982724, 19183776, 7212068, 5910908, 06235338, 39359935 ####[address] [place] [address] Platelet mean volume (Bld) [Entitic vol] 8.2 fL Normal 6.4-10.8 [facility] Comment on above: Performed By: #### 2 081750, 9731141, 3984269, 17184603, 1468275, 2721241, 53839888, 49377167 ####[address] [address] Platelets (Bld) [#/Vol] 181.0 E9/L Normal 150.0-500.0 [facility] Comment on above: Performed By: #### 2 465137, 0209562, 7811492, 83872243, 0442012, 8120283, 39151255, 12731006 ####[address] [address] RBC (Bld) [#/Vol] 4.2 E12/L Low 4.3-5.9 [facility] Comment on above: Performed By: #### 2 436110, 7817068, 1848293, 07519063, 4597012, 2996357, 40473250, 30121638 ####[address] [place] [address] WBC corrected for nucl RBC Auto (Bld) [#/Vol] 6.9 E9/L Normal 4.0-11.0 [facility] Comment on above: Performed By: #### 2 965731, 3735136, 5027892, 91740250, 2923865, 8434769, 19406405, 69943838 ####[address] [address] Erythrocyte distribution width (RBC) [Ratio] 13.6 % Normal 10.9-14.2 [facility] Comment on above: Performed By: #### 1 5412907, 5334264, 0232817, 3914750, 7950890, 41393721, 1473832, 3043788, 28405270, 7331849 ####[address] [place] [address] Hematocrit (Bld) [Volume fraction] 39.8 % Normal 34.0-46.0 [facility] Comment on above: Performed By: #### 1 3072994, 9982585, 0786109, 5051723, 3325968, 54461834, 1497792, 9341372, 13433023, 8472300 ####[address] [place] [address] Hemoglobin (Bld) [Mass/Vol] 13.6 g/dL Normal 12.0-16.0 [facility] Comment on above: Performed By: #### 1 5665308, 8910630, 0861688, 1672169, 3082687, 91662062, 9582128, 2436594, 77654109, 5708811 ####[address] [address] MCH (RBC) [Entitic mass] 31.5 pg Normal 27.0-34.0 [facility] Comment on above: Performed By: #### 1 8548883, 1070776, 7266525, 7059939, 3340995, 62590286, 4933236, 2773593, 83362323, 7634396 ####[address] [place] [address] MCHC (RBC) [Mass/Vol] 34.1 g/dL Normal 31.4-36.0 [facility] Comment on above: Performed By: #### 1 6709731, 5444098, 0082779, 1181055, 5449752, 28944001, 8013238, 9098554, 00871351, 4674802 ####[address] [place] [address] MCV (RBC) [Entitic vol] 92.3 fL Normal 80.0-100.0 [facility] Comment on above: Performed By: #### 1 3337220, 9788010, 5344547, 3986721, 1115043, 06252279, 0662144, 6048651, 67125145, 6173544 ####[facility] [address] [place] [address] Platelet mean volume (Bld) [Entitic vol] 8.7 fL Normal 6.4-10.8 [facility] Comment on above: Performed By: #### 1 9849679, 0430136, 8526840, 4272384, 5354522, 41437051, 5961471, 5984611, 24237175, 5954348 ####[facility] [address] [place] [address] Platelets (Bld) [#/Vol] 243.0 E9/L Normal 150.0-500.0 [facility] Comment on above: Performed By: #### 1 3097611, 2123951, 9348337, 3638067, 1178157, 01014470, 8474189, 4596103, 06830807, 7261843 ####[facility] [address] [place] [address] RBC (Bld) [#/Vol] 4.3 E12/L Normal 4.3-5.9 [facility] Comment on above: Performed By: #### 1 8142455, 7086328, 0670609, 8624904, 4190780, 63619439, 4789446, 3834465, 06890072, 0081979 ####[address] [place] [address] WBC corrected for nucl RBC Auto (Bld) [#/Vol] 12.6 E9/L High 4.0-11.0 [facility] Comment on above: Result Comment: Slid e reviewed by HANNAH. Performed By: #### 1 6890047, 7079841, 0755007, 8911612, 5473178, 18767298, 0586249, 3794337, 57782467, 8986588 ####[facility] [address] [place] [id number] CHEMISTRYOrdered By: SYSTEM SYSTEM on 08-17-2022 Ammonia [...] [facility] Remisol Ethanol [Mass/Vol] mg/dL Normal <=7mg/dL [facility] emisol GFR/1.73 sq M.predicted among non-blacks MDRD (S/P/Bld) [Vol rate/Area] 69 mL/min/1.73 m2 Normal >=59mL/min/1 .73 m2 [facility] [place] Chem S Globulin (S) [Mass/Vol] 3.7 g/dL Normal 1.4 - 4.0 gm/dL [facility] Remisol Glucose [Mass/Vol] 64 mg/dL Normal 55 - 199 mg/dL [facility] Remisol Potassium [Moles/Vol] 3.7 mmol/L Normal 3.5 - 5.3 mmol/L [facility] Remisol Protein [Mass/Vol] 7.9 g/dL High 6.0 - 7.8 gm/dL [facility] Remisol Salicylates [Mass/Vol] mg/dL Low 6 - 29 mg/dL [facility] Remisol Sodium [Moles/Vol] 136 mmol/L Normal 135 - 145 mmol/L [facility] Remisol Troponin I.cardiac [Mass/Vol] 8.00 pg/mL Low 10.10 - 27.10 pg/mL [facility] Remisol Urea nitrogen [Mass/Vol] 27 mg/dL High 5 - 21 mg/dL [facility] Remisol Urea nitrogen/Creatinine [Mass ratio] 24 mg/mg High 10 - [address] [facility] [address] Head or Brain w/o Contras ton 08-17-2022 CT Head or Brain w/o Contrast Normal [facility] Consent for Treatmenton 07 Consent for Treatment [id number] :127 Normal [facility] Consultation Noteon 08-18-19 Consultation Note Normal [facility] Comment on above: Result Comment: Elec tronically Signed By: Bekah Billings RN\.br\Date and Time Signed: 08/17/22 10:14 EDT\.br\Electronically Co-Signed By: Jonathan Patel DO\.br\Date and Time Co-Signed: 08/17/22 11:06 EDT ED Clinical Summaryon 2022 ED Clinical Summary Normal [facility] ED Note-Physicianon 08-18-19 ED Note-Physician Normal [facility] Comment on above: Result Comment: Elec tronically Signed By: Darren Guzman DO\.br\Date and Time Signed: 08/17/22 04:38 EDT ED Patient Education Noteon 08-17-2022 ED Patient Education Note Normal [facility] ED Patient Summaryon 023 ED Patient Summary Normal [facility] Ethanolon 08-17-2022 Ethanol [Mass/Vol] mg/dL Normal <=7 [facility] Comment on above: Performed By: #### 2 880484 ####[facility] [address] [place] [address] HEMATOLOGYOrdered By: SYSTEM SYSTEM on 08-17-2022 Basophils/100 [...] 8.7 fL Normal 6.4 - 10.8 fL [facility] [place] HemeAutoSS Platelets (Bld) [#/Vol] 243.0 E9/L Normal 150.0 - 500.0 E9/L [facility] [place] HemeAutoSS RBC (Bld) [#/Vol] 4.3 E12/L Normal 4.3 - 5.9 E12/L [facility] [place] HemeAutoSS WBC corrected for nucl RBC Auto (Bld) [#/Vol] 12.6 E9/L High 4.0 - 11.0 E9/L [facility] [place] HemeAutoSS Comment on above: Result Comment: Slid e reviewed by HANNAH. Hep Func Panelon 08-17-2022 Albumin [Mass/Vol] 4.2 g/dL Normal 3.3-5.0 [facility] Comment on above: Performed By: #### 1 3326197, 5202739, 9456206, 0449041, 9359307, 82444107, 5075186, 5268204, 64992082, 4839548 ####[facility] [address] [place] [address] Albumin/Globulin (S) [Mass conc ratio] 1.1 Normal 1.1-2.2 [facility] Comment on above: Performed By: #### 1 6893476, 1996358, 5433202, 6399171, 3186555, 16943082, 2813451, 2332321, 57279317, 2250847 ####[facility] [address] [place] [address] ALP [Catalytic activity/Vol] 83 Int._Unit/L Normal 21-98 [facility] Comment on above: Performed By: #### 1 2240249, 1426003, 8363372, 8573916, 9148493, 64379147, 5029518, 0997452, 97113253, 4892253 ####[facility] [address] [place] [address] ALT No additional P-5'-P [Catalytic activity/Vol] 139 Int._Unit/L High 6-46 [facility] Comment on above: Performed By: #### 1 8025113, 6706443, 2162390, 2242509, 7714809, 15607815, 8660942, 4370476, 69854762, 9384380 ####[place] [address] [place] [address] AST [Catalytic activity/Vol] 146 Int._Unit/L High 5-43 [facility] Comment on above: Performed By: #### 1 1665571, 8746014, 4267219, 7505555, 8902888, 67677445, 7353801, 9664496, 51307392, 6725841 ####[place] [address]57 Bilirubin [Mass/Vol] 1.0 mg/dL Normal 0.0-1.1 [facility] Comment on above: Performed By: #### 1 1840957, 3732457, 3917099, 3733477, 8774576, 17552753, 3733823, 0426072, 92243606, 7368253 ####[place] [address]57 Bilirubin.direct [Mass/Vol] 0.3 mg/dL Normal 0.1-0.4 [facility] Comment on above: Performed By: #### 1 4670047, 4748752, 5628383, 8202263, 7641619, 67531780, 2083961, 6507905, 05269758, 8395217 ####[place] [address] [place] [id number] Bilirubin.indirect [Mass or moles/Vol] 0.7 mg/dL Normal 0.1-0.9 [facility] Comment on above: Performed By: #### 1 2905112, 2890250, 6199433, 5926591, 2907443, 66309282, 6545015, 3601959, 90058849, 6376913 ####[place] [address] [place] [address] Globulin (S) [Mass/Vol] 3.7 g/dL Normal 1.4-4.0 [facility] Comment on above: Performed By: #### 1 7787144, 6293250, 4817674, 9608408, 4308527, 29707998, 7257088, 0796354, 64172874, 3264832 ####[facility] [address] [place] [address] Protein [Mass/Vol] 7.9 g/dL High 6.0-7.8 [facility] Comment on above: Performed By: #### 1 3521032, 1351664, 0287887, 9131049, 3944482, 90380528, 4416992, 4551011, 34766883, 7711413 ####[facility] [address] [place] [address] Interdisciplinary Note - Alonso e Manageron 08-17-2022 Interdisciplinary Note - Insulator Technician Normal [facility] Comment on above: Result Comment: Elec tronically Signed By: Jere RN, Ernestina\.br\Date and Time Signed: 08/17/22 11:06 EDT Interdisciplinary Note - Soc ial Workeron 08-17-2022 Interdisciplinary Note - Graphics Intern Normal [facility] Pre-Arrival Noteon Pre-Arrival Note Normal [facility] RAD - Preliminary Cat Scan R eporton 08-17-2022 RAD - Preliminary Cat Scan Report [id number]#[id number]: 127 Normal [facility] SEROLOGYOrdered By: Monica Earl on 08-17-2022 Beta hCG Ql Negative (08/17/22 12:29 AM) Normal [facility] [place] Man Sero Salicylateon 08-17-2022 Salicylates [Mass/Vol] mg/dL Low 6-29 [facility] Comment on above: Performed By: #### 1 7690869, 2672577, 1165535, 3220421, 7133818, 85892136, 2831063, 4437481, 24126731, 3702398 ####[facility] [address] [place] [address] Sed Rate Automatedon 023 Sed Rate Automated 7 mm/hr Normal 0-34 [facility] Comment on above: Performed By: #### 2 069644, 7949195, 4802795, 90609469, 7129849, 0996462, 05480147, 34966765 ####[facility] [address] [place] [address] TSH With T4fr Reflexon 08-17 TSH Qn 1.49 m[IU]/L Normal 0.34-5.60 [facility] Comment on above: Performed By: #### 2 362177, 9647146, 9070730, 63189283, 7081354, 9721136, 91097972, 15990843 ####[facility] [address] [place] [address] Troponin 0 Hr.on 08-17-2022 Troponin I.cardiac [Mass/Vol] 8.00 pg/mL Low 10.10-27.10 [facility] Comment on above: Order Comment: per p t combative/uncooperative per Dr. Guzman waiting for meds to be administered before trying iv/bloodwork. ER to notify me when ready...mmf 08/16/2022 23:46:16 EDT Result Comment: The 95% CI (Confidence Interval) PPV (Positive Predictive Value) for myocardial infarction in females is 38 pg/mL, in males 51 pg/mL. The results should be used in conjunction with clinical conditions of myocardial infarction.(Access High Sensitivity Troponin I Instructions For Use, Yvrose Pep, September 2017) Performed By: #### 1 7915070, 2529961, 5866644, 7267247, 4827614, 40886416, 6780009, 4704744, 40058222, 1984086 ####[facility] [address] [place] [address] U Drug Screenon 08-17-2022 Amphetamines Screen method >1000 ng/mL Ql (U) Positive Abnormal Negative [facility] Comment on above: Result Comment: Crit ical Result verified by repeat analysis\Critical Result UD_AMPH:POS Called to [facility] AT ER by MONICA EARL And Read Back For Confirmation at: 08/17/2022 03:58:19Negative Cutoff: <1000 ng/mL Performed By: #### 2 940448 ####[facility] [address] [facility] [place] [address] Cocaine Ql (U) Positive Abnormal Negative [facility] Comment on above: Result Comment: Crit ical Result verified by repeat analysis\Critical Result UD_COCM:POS Called to [facility] AT ER by MONICA EARL And Read Back For Confirmation at: 08/17/2022 03:58:19Negative Cutoff: <300 ng/mL Performed By: #### 2 468791 ####[facility] [address] [place] [address] Barbiturates Screen Ql (U) Negative Normal Negative [facility] Comment on above: Result Comment: Nega tive Cutoff: <200 ng/mL Performed By: #### 2 606683 ####[facility] [address] [facility] [place] [address] Benzodiazepines Ql (U) Negative Normal Negative [facility] Comment on above: Result Comment: Nega tive Cutoff: <200 ng/mL Performed By: #### 2 665344 ####[facility] [address] [place] [address] Opiates Screen Ql (U) Negative Normal Negative [facility] Comment on above: Result Comment: Nega tive Cutoff: <300 ng/mL Performed By: #### 2 401684 ####[facility] [address] [place] [address] Phencyclidine Screen method >25 ng/mL Ql (U) Negative Normal Negative [facility] Comment on above: Result Comment: Nega tive Cutoff: <25 ng/mLThese drug screen results are to be used for medical (i.e., treatment) purposes only. Unconfirmed drug screening results must not be used for non-medical purposes (e.g., employment testing, legal testing). Performed By: #### 2 963395 ####[facility] [address] [place] [address] Tetrahydrocannabinol Screen method >50 ng/mL Ql (U) Negative Normal Negative [facility] Comment on above: Result Comment: Nega tive Cutoff: <50 ng/mL Performed By: #### 2 290097 ####[facility] [address] [facility] [place] [place] [address] UA With Cult Reflexon 2022 Bilirubin Ql (U) Negative Normal Negative [facility] Comment on above: Performed By: #### 1 4924102 ####[facility] [address] [place] [address] Clarity (U) CLEAR Normal Clear [facility] Comment on above: Performed By: #### 1 8671146 ####[address] [place] [address] Color (U) YELLOW Normal Yellow [facility] Comment on above: Performed By: #### 1 3071187 ####[facility] [address] [place] [address], [place] [address] Crystals LM Ql (Urine sed) Present Normal [facility] Comment on above: Performed By: #### 1 2887316 ####[address] [place] [address] Epithelial cells.squamous LM.HPF (Urine sed) [#/Area] 0-2 Normal 0-2 [facility] Comment on above: Performed By: #### 1 1544247 ####[facility] [address] [facility] [place] [place] [address] Glucose Test strip (U) [Mass/Vol] Negative Normal Negative [facility] Comment on above: Performed By: #### 1 0115561 ####[facility] [address] [place] [address] Hemoglobin Ql (U) Negative Normal Negative [facility] Comment on above: Performed By: #### 1 6069046 ####[facility] [address] [place] [address] Ketones (U) [Mass/Vol] Negative Normal Negative [facility] Comment on above: Performed By: #### 1 5031411 ####[facility] [address] [place] [address] Ector.plasma/Lithiu m.RBC (Bld) [Mass ratio] 0-3 Normal 0-3 [facility] Comment on above: Performed By: #### 1 3325913 ####[address] [address] Nitrite Ql (U) Negative Normal Negative [facility] Comment on above: Performed By: #### 1 0218363 ####[address] [address] pH (U) 5.5 [pH] Invalid Interpretation Code 5.0-9.0 [facility] Comment on above: Performed By: #### 1 5002581 ####[address] [address] Protein (U) [Mass/Vol] Negative Normal Negative [facility] Comment on above: Performed By: #### 1 3355080 ####[address] [address] Specific gravity (U) [Rel density] 1.020 Invalid Interpretation Code 1.005-1.030 [facility] Comment on above: Performed By: #### 1 5595257 ####[address] [address] Type of Urine collection method Clean Catch Normal [facility] Comment on above: Performed By: #### 1 1134932 ####[address] [address] Urobilinogen Qn (U) 0.2 {Surinder'U}/dL Normal 0.0-1.0 [facility] Comment on above: Performed By: #### 1 2573269 ####[address] [address] WBC Auto Ql (U) Negative Normal Negative [facility] Comment on above: Performed By: #### 1 5455769 ####[facility] [address] [place] [address] WBC LM.HPF (Urine sed) [#/Area] 0-5 Normal 0-5 [facility] Comment on above: Performed By: #### 1 9048735 ####[facility] [address] [place] 6[address]357 URINALYSISOrdered By: Too Earl on 08-17-2022 Bilirubin Ql (U) Negative (08/17/22 3:01 AM) Normal Negative [facility] UA Auto SS Clarity (U) Clear (08/17/22 3:01 AM) Normal Clear [facility] UA Auto SS Color (U) Yellow (08/17/22 3:01 AM) Normal Yellow [facility] UA Auto SS Crystals LM Ql (Urine sed) Present (08/17/22 3:01 AM) Normal [facility] UA Auto SS Epithelial cells.squamous LM.HPF (Urine sed) [#/Area] 0-2 /HPF Normal 0-2/HPF [facility] UA Aut o SS Glucose Test strip (U) [Mass/Vol] Negative (08/17/22 3:01 AM) Normal Negative [facility] UA Auto SS Hemoglobin Ql (U) Negative (08/17/22 3:01 AM) Normal Negative [facility] UA Auto SS Ketones (U) [Mass/Vol] Negative (08/17/22 3:01 AM) Normal Negative [facility] UA Auto SS Ector.plasma/Lithiu m.RBC (Bld) [Mass ratio] 0-3 /HPF Normal [...] Desc Clean Catch (08/17/22 3:01 AM) Normal [facility] UA Auto SS Urobilinogen Qn (U) 0.4254797 {Surinder'U}/dL Normal 0.0 - 1.0 EU/dL [facility] UA Auto SS WBC Auto Ql (U) Negative (08/17/22 3:01 AM) Normal Negative [facility] [place] UA Auto SS WBC LM.HPF (Urine sed) [#/Area] 0-5 /HPF Normal 0-5/HPF [facility] [place] UA Auto SS Vit B12on 08-17-2022 Cobalamin (Vitamin B12) [Mass/Vol] 384 pg/mL Normal 50-1500 [facility] Comment on above: Performed By: #### 2 406252, 4828248, 9744841, 80507911, 0919189, 0183718, 91591381, 70192671 ####[facility] [address] [place] [address] XR Chest Single Viewon 08-17 XR Chest Single View Normal [facility] eGFRon 08-17-2022 GFR/1.73 sq M.predicted among non-blacks MDRD (S/P/Bld) [Vol rate/Area] 119 mL/min/1.73 m2 Normal >=59 [facility] Comment on above: Order Comment: Order added by Discern Expert. Result Comment: Branch Logistics Supervisor justin kidney disease could be indicated at eGFR's of less than 60 mL/min/1.73m2. Kidney failure is indicated at less than 15 mL/min/1.73m2. Performed By: #### 2 022058, 4492117, 0870511, 44379871, 6030622, 6145943, 50594394, 46630270 ####[facility] [address] [place] [address] GFR/1.73 sq M.predicted among non-blacks MDRD (S/P/Bld) [Vol rate/Area] 69 mL/min/1.73 m2 Normal >=59 [facility] Comment on above: Order Comment: Order added by Discern Expert. Result Comment: Branch Logistics Supervisor justin kidney disease could be indicated at eGFR's of less than 60 mL/min/1.73m2. Kidney failure is indicated at less than 15 mL/min/1.73m2. Performed By: #### 1 3292551, 9920753, 9452867, 5109215, 4044427, 39929678, 4920702, 4289469, 46229263, 4703590 ####[facility] [address] [place] [address] ED Note-Physicianon 08-17-19 ED Note-Physician Normal [facility] Comment on above: Result Comment: Elec tronically Signed By: Colin Fernandez PA-C\.br\Date and Time Signed: 08/15/22 20:22 EDT\.br\Electronically Co-Signed By: Isai Hall DO\.br\Date and Time Co-Signed: 08/16/22 06:53 EDT Family Medicine Office/Clini c Noteon 08-16-2022 [facility] Medicine Office/Clinic Note Normal [facility] Comment on above: Result Comment: Elec tronically Signed By: Amanda BARRIOS CNP\.br\Date and Time Signed: 08/16/22 10:22 EDT\.br\Electronically Co-Signed By: [employer]\.br\Date and Time Co-Signed: 08/13/22 17:08 EDT Auto Diffon 08-15-2022 Basophils/100 WBC (Bld) 1.1 % Normal 0.0-2.0 [facility] Comment on above: Order Comment: Order Added by Discern Expert. Performed By: #### 2 360775, 6841230, 97319040, 9251022, 5800302, 78099865 ####[facility] [address] [place] [address] Basophils/Leukocytes Auto (Bld) [Pure # fraction] 0.1 E9/L Normal 0.0-0.2 [facility] Comment on above: Order Comment: Order Added by Discern Expert. Performed By: #### 2 760207, 3386602, 83124967, 3583337, 6208348, 10857985 ####[facility] [address] [place] [address] Eosinophils/100 WBC (Bld) 1.3 % Normal 0.0-8.0 [facility] Comment on above: Order Comment: Order Added by Discern Expert. Performed By: #### 2 524421, 7943630, 55328784, 8433831, 2343809, 44429404 ####[place] [address] [place] [address] Eosinophils/Leukocyte s Auto (Bld) [Pure # fraction] 0.1 E9/L Normal 0.0-0.5 [facility] Comment on above: Order Comment: Order Added by Discern Expert. Performed By: #### 2 679228, 6161289, 19091845, 8480765, 3266129, 06817835 ####[address] [address] Lymphocytes/100 WBC (Bld) 45.6 % Normal 14.0-50.0 [facility] Comment on above: Order Comment: Order Added by Discern Expert. Performed By: #### 2 637592, 5310561, 76338419, 8201776, 0151395, 50520100 ####[address] [address] Lymphocytes/Leukocyte s Auto (Bld) [Pure # fraction] 3.2 E9/L Normal 1.0-4.0 [facility] Comment on above: Order Comment: Order Added by Radha Expert. Performed By: #### 2 308870, 8902633, 51521966, 6360235, 5356053, 89342696 ####[address] [address] Monocytes/100 WBC (Bld) 8.4 % Normal 4.0-14.0 [facility] Comment on above: Order Comment: Order Added by Discern Expert. Performed By: #### 2 886620, 6968697, 73972362, 7017703, 3616217, 81430806 ####[place] [address] [place] [address] Monocytes/Leukocytes Auto (Bld) [Pure # fraction] 0.6 E9/L Normal 0.2-1.0 [facility] Comment on above: Order Comment: Order Added by Radha Expert. Performed By: #### 2 803549, 2704860, 85838830, 9415658, 1184049, 98016377 ####[address] [place] [address] Neutrophils/100 WBC (Bld) 43.6 % Normal 36.0-75.0 [facility] Comment on above: Order Comment: Order Added by Discern Expert. Performed By: #### 2 875521, 4810827, 13102129, 1010889, 6046064, 49102049 ####[facility] [address] [place] [address] Neutrophils/Leukocyte s Auto (Bld) [Pure # fraction] 3.0 E9/L Normal 2.0-7.5 [facility] Comment on above: Order Comment: Order Added by Discern Expert. Performed By: #### 2 061339, 8346994, 95192446, 3290823, 9582444, 86152960 ####[facility] [address] [place] [address] BMPon 08-15-2022 Anion gap [Moles/Vol] 15 mmol/L Normal 6-16 [facility] Comment on above: Performed By: #### 2 264595, 0259669, 49385733, 6961283, 6027831, 05354542 ####[facility] [address] [place] [address] Calcium [Mass/Vol] 9.8 mg/dL Normal 8.9-11.1 [facility] Comment on above: Performed By: #### 2 354689, 7596124, 41983750, 7291519, 8376714, 56320749 ####[facility] [address] [place] [address] Chloride [Moles/Vol] 105 mmol/L Normal 101-111 [facility] Comment on above: Performed By: #### 2 360313, 3279027, 46841988, 9469160, 3369244, 47194869 ####[facility] [address] [place] [address] CO2 [Moles/Vol] 23 mmol/L Normal 21-31 [facility] Comment on above: Performed By: #### 2 923907, 6628222, 88116312, 3147732, 4928226, 29479742 ####[facility] [address] [place] [address] Creatinine [Mass/Vol] 1.0 mg/dL Normal 0.5-1.3 [facility] Comment on above: Performed By: #### 2 000207, 3114523, 80422970, 3762970, 6368232, 42525406 ####[facility] [address] [place] [address] Glucose [Mass/Vol] 113 mg/dL Normal 55-199 [facility] Comment on above: Result Comment: If t his glucose result represents a fasting glucose, interpretation should refer to the following reference range: 55-99 mg/dL Performed By: #### 2 487884, 6657817, 18993894, 6963349, 0430376, 18124365 ####[facility] [address] [place] [address] Potassium [Moles/Vol] 4.1 mmol/L Normal 3.5-5.3 [facility] Comment on above: Result Comment: 'Spe cimen hemolyzed. Result may be affected. Redraw is recommended.' Performed By: #### 2 983127, 5981254, 39647450, 0270395, 9726485, 29014594 ####[facility] [address] [place] [address] Sodium [Moles/Vol] 139 mmol/L Normal 135-145 [facility] Comment on above: Performed By: #### 2 795271, 1019775, 15650338, 3696504, 5021724, 71150540 ####[facility] [address] [place] [address] Urea nitrogen [Mass/Vol] 18 mg/dL Normal 5-21 [facility] Comment on above: Performed By: #### 2 255559, 3572854, 80196059, 5571782, 4001508, 79373795 ####[facility] [address] [place] [address] Urea nitrogen/Creatinine [Mass ratio] 18 No Units Normal 10-20 [facility] Comment on above: Performed By: #### 2 224160, 2581374, 31766642, 3614867, 8208625, 63606792 ####[facility] [address] [place] [address] CBC w/ Auto Diffon 3 Erythrocyte distribution width (RBC) [Ratio] 13.7 % Normal 10.9-14.2 [facility] Comment on above: Order Comment: Clott ed specimen. Redraw ordered. MLB Performed By: #### 2 794599, 0810826, 02583202, 5633428, 7086860, 28225356 ####[facility] [address] [place] [address] Hematocrit (Bld) [Volume fraction] 38.8 % Normal 34.0-46.0 [facility] Comment on above: Order Comment: Clott ed specimen. Redraw ordered. MLB Performed By: #### 2 760206, 7172054, 59792072, 1163769, 8489136, 06276528 ####[facility] [address] [place] [address] Hemoglobin (Bld) [Mass/Vol] 13.3 g/dL Normal 12.0-16.0 [facility] Comment on above: Order Comment: Clott ed specimen. Redraw ordered. MLB Performed By: #### 2 039144, 7592998, 70635902, 3295192, 3315143, 01903349 ####[facility] [address] [place] [address] MCH (RBC) [Entitic mass] 31.6 pg Normal 27.0-34.0 [facility] Comment on above: Order Comment: Clott ed specimen. Redraw ordered. MLB Performed By: #### 2 667627, 3943185, 29819654, 1795583, 1739593, 57004974 ####[facility] [address] [place] [address] MCHC (RBC) [Mass/Vol] 34.4 g/dL Normal 31.4-36.0 [facility] Comment on above: Order Comment: Clott ed specimen. Redraw ordered. MLB Performed By: #### 2 809285, 5689646, 04070213, 9909986, 0995776, 73582865 ####[facility] [address] [place] [address] MCV (RBC) [Entitic vol] 91.9 fL Normal 80.0-100.0 [facility] Comment on above: Order Comment: Clott ed specimen. Redraw ordered. MLB Performed By: #### 2 795393, 1718720, 28964584, 6182467, 9744168, 35604229 ####[facility] [address] [place] [address] Platelet mean volume (Bld) [Entitic vol] 7.9 fL Normal 6.4-10.8 [facility] Comment on above: Order Comment: Clott ed specimen. Redraw ordered. MLB Performed By: #### 2 077483, 6720298, 35460533, 8496768, 3347431, 18818502 ####[facility] [address] [place] [address] Platelets (Bld) [#/Vol] 202.0 E9/L Normal 150.0-500.0 [facility] Comment on above: Order Comment: Clott ed specimen. Redraw ordered. MLB Performed By: #### 2 239054, [id number], [id number], 2075852, [id number], [id number] ####[facility] [address] [place] [address] RBC (Bld) [#/Vol] 4.2 E12/L Low 4.3-5.9 [facility] Comment on above: Order Comment: Clott ed specimen. Redraw ordered. MLB Performed By: #### 2 581124, 8195794, 50706403, 7277643, 1399866, [id number] ####[facility] [address] [place] [address] WBC corrected for nucl RBC Auto (Bld) [#/Vol] 6.9 E9/L Normal 4.0-11.0 [facility] Comment on above: Order Comment: Clott ed specimen. Redraw ordered. MLB Performed By: #### 2 097188, 1057810, 53669316, 3992599, 0389605, [id number] ####[facility] [address] [place] [address] Consent for Treatmenton Consent for Treatment [id number]: 127 Normal [facility] Discharge Instructionson Discharge Instructions [id number] D:127 Normal [facility] ED Clinical Summaryon 2022 ED Clinical Summary Normal [facility] ED Note-Nursingon 08-15-2022 ED Note-Nursing Normal [facility] ED Patient Education Noteon 08-15-2022 ED Patient Education Note Normal [facility] ED Patient Summaryon 023 ED Patient Summary Normal [facility] Ethanolon 08-15-2022 Ethanol [Mass/Vol] mg/dL Normal <=7 [facility] Comment on above: Performed By: #### 2 [id number] ####[facility] [address] [place] [address] Hep Func Panelon 08-15-2022 Albumin [Mass/Vol] 3.9 g/dL Normal 3.3-5.0 [facility] Comment on above: Performed By: #### 2 778380, 8255390, 39447457, 4895552, 3436060, 62226369 ####[facility] [address] [place] [address] Albumin/Globulin (S) [Mass conc ratio] 1.1 Normal 1.1-2.2 [facility] Comment on above: Performed By: #### 2 469998, 0162336, 48661482, 2227352, 7296995, 04622877 ####[facility] [address] [place] [address] ALP [Catalytic activity/Vol] 85 Int._Unit/L Normal 21-98 [facility] Comment on above: Performed By: #### 2 958967, 3370332, 11498035, 7248606, 6826651, 10347975 ####[facility] [address] [place] [address] ALT No additional P-5'-P [Catalytic activity/Vol] 151 Int._Unit/L High 6-46 [facility] Comment on above: Result Comment: 'Spe cimen hemolyzed, result may be affected. Recommend redraw.' Performed By: #### 2 931818, 4350861, 71406243, 7020998, 3958847, 90399983 ####[address] [address] AST [Catalytic activity/Vol] 182 Int._Unit/L High 5-43 [facility] Comment on above: Result Comment: 'Spe cimen hemolyzed, result may be affected. Recommend redraw.' Performed By: #### 2 393831, 6969929, 80985022, 7954662, 9041334, 81549159 ####[facility] [address] [place] [address] Bilirubin [Mass/Vol] 1.2 mg/dL High 0.0-1.1 [facility] Comment on above: Result Comment: 'Spe cimen hemolyzed, result may be affected. Redraw is recommended.' Performed By: #### 2 946556, 0946729, 23561276, 6720190, 9868194, 81967385 ####[facility] [address] [place] [address] Bilirubin.direct [Mass/Vol] 0.4 mg/dL Normal 0.1-0.4 [facility] Comment on above: Result Comment: 'Spe cimen hemolyzed, result may be affected. Redraw recommended.' Performed By: #### 2 309513, 8315959, 24040132, 4937341, 2572766, 94948611 ####[facility] [address] [place] [address] Bilirubin.indirect [Mass or moles/Vol] 0.8 mg/dL Normal 0.1-0.9 [facility] Comment on above: Performed By: #### 2 824639, 6580033, 40477127, 7987375, 2707305, 24032276 ####[facility] [address] [place] [address] Globulin (S) [Mass/Vol] 3.5 g/dL Normal 1.4-4.0 [facility] Comment on above: Performed By: #### 2 763553, 2295526, 64744129, 0994184, 1088499, 04048484 ####[facility] [address] [place] [address] Protein [Mass/Vol] 7.4 g/dL Normal 6.0-7.8 [facility] Comment on above: Performed By: #### 2 577266, 6988520, 06319667, 4409384, 0319344, 30751194 ####[facility] [address] [place] [address] Outside Recordson 08-15-2022 Outside Records [id number] D:127 Normal [facility] Physician Referralon 023 Physician Referral [id number] :127 Normal [facility] Progress Note-Nurseon 2022 Progress Note-Nurse Patient on phone wit h MHP at this time Normal [facility] Troponin 0 Hr.on 08-15-2022 Troponin I.cardiac [Mass/Vol] 4.50 pg/mL Low 10.10-27.10 [facility] Comment on above: Result Comment: The 95% CI (Confidence Interval) PPV (Positive Predictive Value) for myocardial infarction in females is 38 pg/mL, in males 51 pg/mL. The results should be used in conjunction with clinical conditions of myocardial infarction.(Access High Sensitivity Troponin I Instructions For Use, [employer], September 2017) Performed By: #### 2 826894, 2727762, 99292540, 3198397, 7500177, [id number] ####[facility] [address] [place] [address] Valuables Checkliston 2022 Valuables Checklist [id number] D:127 Normal [facility] XR Chest Single Viewon 08-15 XR Chest Single View Normal [facility] eGFRon 08-15-2022 GFR/1.73 sq M.predicted among non-blacks MDRD (S/P/Bld) [Vol rate/Area] 78 mL/min/1.73 m2 Normal >=59 [facility] Comment on above: Order Comment: Order added by Discern Expert. Result Comment: Branch Logistics Supervisor justin kidney disease could be indicated at eGFR's of less than 60 mL/min/1.73m2. Kidney failure is indicated at less than 15 mL/min/1.73m2. Performed By: #### 2 220442, 9586265, 03911044, 1460555, 3739520, 23110080 ####[facility] [address] [place] [address] Ambulatory Visit Summaryon 0 08-13-2022 Ambulatory Visit Summary Normal [facility] Cholesterol [Mass/volume] in Serum or PlasmaOrdered By: Gautam Burrows on 06-08-2022 Cholesterol [Mass/Vol] 110 mg/dL 140-200 [facility] Comment on above: Chol less than 200 m g/dl low riskChol 201-239 mg/dl borderline riskChol 240 mg/dl and greater high risk Cholesterol in LDL Calc [Mas s/Vol]Ordered By: Gautam Burrows on 06-08-2022 Cholesterol in LDL [Mass/Vol] 53 mg/dL 0-100 [facility] Comment on above: LDL ATP III CLASSIFI CATIONLDL less than 100 mg/dL OptimalLDL 100-129 mg/dL Near or above optimalLDL 130-159 mg/dL Borderline highLDL 160-189 mg/dL HighLDL greater than 189 mg/dL Very high Cholesterol in VLDL Calc [Ma ss/Vol]Ordered By: Gautam Burrows on 06-08-2022 Cholesterol in VLDL [Mass/Vol] 21 mg/dL [facility] Serum or plasma high density lipoprotein (HDL) cholesterol measurementOrdered By: Gautam Burrows on 06-08-2022 Cholesterol in HDL [Mass/Vol] 35 mg/dL 35-85 [facility] Comment on above: HDL CHOL ATP-III CLA SSIFICATION Cardiovascular RiskHDL > or equal to 60 mg/dL LOWHDL < 40 mg/dL HIGH Serum or plasma total choles terol/high density lipoprotein (HDL) cholesterol mass ratOrdered By: Gautam Burrows on 06-08-2022 Cholesterol.total/Cho lesterol in HDL [Mass ratio] 3.1 {ratio} <5.0 [facility] Thyrotropin [Units/volume] i n Serum or PlasmaOrdered By: Gautam Burrows on 06-08-2022 TSH Qn 1.46 m[IU]/L 0.45-5.33 [facility] Triglyceride [Mass/volume] i n Serum or PlasmaOrdered By: Gautam Burrows on 06-08-2022 Triglyceride [Mass/Vol] 109 mg/dL 0-149 [facility] Comment on above: TRIG ATP III CLASSIF ICATIONTRIG less than 150 mg/dL NormalTRIG 150-199 mg/dL Borderline highTRIG 200-500 mg/dL High TRIG greater than 500 mg/dL Very highStandard traceable to the Center for Disease Conrtrol and Prevention (CDC) test method. Vitamin D+Metabolites [Mass/ volume] in Serum or PlasmaOrdered By: Gautam Burrows on 06-08-2022 Vitamin D+Metabolites [Mass/Vol] 23.4 ng/mL 30-100 [facility] Comment on above: VITAMIN D STATUS 25( [place])VITAMIN D RANGE (ng/mL) Deficient <20 Insufficient 20 to <30Sufficient 30 to 100Reference: Tete MF,David NC, Horace COTO, et al. Evaluation,treatment, and prevention of vitamin D deficiency; an Endocrine Society clinical practice guideline. JCEM. 2010; 96(7):1911-30. Activated partial thrombopla stin time (aPTT) in platelet poor plasma by coagulation aOrdered By: Ari Aguero on 06-07-2022 aPTT Coag (PPP) [Time] 30.0 s 25.1-36.5 [facility] Alanine aminotransferase [En zymatic activity/volume] in Serum or PlasmaOrdered By: Ari Aguero on 06-07-2022 ALT [Catalytic activity/Vol] 109 U/L 7-52 [facility] Albumin [Mass/volume] in Ser um or Plasma by Bromocresol green (BCG) dye binding methoOrdered By: Ari Aguero on 06-07-2022 Albumin BCG dye [Mass/Vol] 4.1 g/dL 3.5-5.7 [facility] Alkaline phosphatase [Enzyma tic activity/volume] in Serum or PlasmaOrdered By: Ari Aguero on 06-07-2022 ALP [Catalytic activity/Vol] 87 U/L 34-104 [facility] Amphetamine Screen Ql (U)Ord ered By: Ari Aguero on 06-07-2022 Amphetamines Ql (U) Positive Negative [facility] Aspartate aminotransferase [ Enzymatic activity/volume] in Serum or PlasmaOrdered By: Ari Aguero on 06-07-2022 AST [Catalytic activity/Vol] 122 U/L 13-39 [facility] Automated erythrocytes count in urine sediment (number/area)Ordered By: Ari Aguero on 06-07-2022 RBC Auto (Urine sed) [#/Area] 3-4 [HPF] 0-4 [facility] Automated leukocytes count i n urine sediment (number/area)Ordered By: Ari Aguero on 06-07-2022 WBC Auto (Urine sed) [#/Area] 0-1 [HPF] 0-4 [facility] Automated urine hyaline cast s count (number/volume)Ordered By: Ari Aguero on 06-07-2022 Hyaline casts Auto (U) [#/Vol] 20-49 [LPF] 0-1 [facility] Barbiturates [Presence] in U rine by Screen methodOrdered By: Ari Aguero on 06-07-2022 Barbiturates Screen Ql (U) Negative Negative [facility] Basophils Auto (Bld) [#/Vol] Ordered By: Ari Aguero on 06-07-2022 Basophils (Bld) [#/Vol] 0.1 10*3/uL 0.0-0.2 [facility] Basophils/100 WBC Auto (Bld) Ordered By: Ari Aguero on 06-07-2022 Basophils/100 WBC (Bld) 0.5 % . [facility] Benzodiazepines Screen Ql (U )Ordered By: Ari Aguero on 06-07-2022 Benzodiazepines Ql (U) Negative Negative [facility] Benzoylecgonine [Presence] i n Urine by Screen methodOrdered By: Ari Aguero on 06-07-2022 Benzoylecgonine Screen Ql (U) Negative Negative [facility] Bilirubin Test strip Ql (U)O rdered By: Ari Aguero on 06-07-2022 Bilirubin Ql (U) Negative Negative [facility] Bilirubin.total [Mass/volume ] in Serum or PlasmaOrdered By: Ari Aguero on 06-07-2022 Bilirubin [Mass/Vol] 0.9 mg/dL 0.3-1.0 [facility] Calcium [Mass/volume] in Ser um or PlasmaOrdered By: Ari Aguero on 06-07-2022 Calcium [Mass/Vol] 9.2 mg/dL 8.6-10.3 [facility] Cannabinoids [Presence] in U rine by Screen methodOrdered By: Ari Aguero on 06-07-2022 Cannabinoids Screen Ql (U) Negative Negative [facility] Comment on above: These are unconfirme d results and should not be used for legal purposes. Drug Cut-Off Concentration: AMPH 1000 ng/mL JANELL 200 ng/mL JAMES 200 ng/mL COCM 300 ng/mL OP 300 ng/mL PCP 25 ng/mL THC 20 ng/mL Carbon dioxide, total [Moles /volume] in Serum or PlasmaOrdered By: Ari Aguero on 06-07-2022 CO2 [Moles/Vol] 23.1 mmol/L 21.0-31.0 [facility] Casts typing in urine sedime nt by light microscopyOrdered By: Ari Aguero on 06-07-2022 Casts LM Nom (Urine sed) None seen [LPF] None Seen [facility] Chloride [Moles/volume] in S marbella or PlasmaOrdered By: Ari Aguero on 06-07-2022 Chloride [Moles/Vol] 105 mmol/L 98-107 [facility] Coarse granular casts count in urine sediment by microscopy low power field (number/aOrdered By: Ari Aguero on 06-07-2022 Coarse Granular Casts LM.LPF (Urine sed) [#/Area] 0-1 [LPF] 0-1 [facility] Color Auto (U)Ordered By: Robin red More on 06-07-2022 Color (U) Dark yellow Yellow [facility] Creatinine [Mass/volume] in Serum or PlasmaOrdered By: Ari Aguero on 06-07-2022 Creatinine [Mass/Vol] 0.84 mg/dL 0.60-1.20 [facility] Eosinophils Auto (Bld) [#/Vo l]Ordered By: Ari Aguero on 06-07-2022 Eosinophils (Bld) [#/Vol] 0.0 10*3/uL 0.0-0.45 [facility] Eosinophils/100 WBC Auto (Bl d)Ordered By: Ari Aguero on 06-07-2022 Eosinophils/100 WBC (Bld) 0.2 % . [facility] Erythrocyte distribution wid th Auto (RBC) [Ratio]Ordered By: Ari Aguero on 06-07-2022 Erythrocyte distribution width (RBC) [Ratio] 13.5 % 11.9-15.3 [facility] Ethanol [Mass/volume] in Ser um or PlasmaOrdered By: Ari Aguero on 06-07-2022 Ethanol [Mass/Vol] mg/dL [facility] Ethanol [Mass/Vol] TNP [facility] Comment on above: Test not performed Globulin Calc (S) [Mass/Vol] Ordered By: Ari Aguero on 06-07-2022 Globulin (S) [Mass/Vol] 3.5 g/dL [facility] Glucose [Mass/volume] in Ser um or PlasmaOrdered By: Ari Aguero on 06-07-2022 Glucose [Mass/Vol] 82 mg/dL 70-100 [facility] Comment on above: ADA recommended refe rence rangeRandom Glucose Reference Range is dependent on time and content of last meal. Glucose of more than 200 mg/dL in a nonstressed, ambulatory subject supports the diagnosis of Diabetes Mellitus. HCG ( test) IA.rapi d Ql (U)Ordered By: Ari Aguero on 06-07-2022 HCG ( test) Ql (U) Negative [facility] Hematocrit Auto (Bld) [Volum e fraction]Ordered By: Ari Aguero on 06-07-2022 Hematocrit (Bld) [Volume fraction] 40.7 % 34.0-46.4 [facility] Hemoglobin [Mass/volume] in BloodOrdered By: Ari Aguero on 06-07-2022 Hemoglobin (Bld) [Mass/Vol] 13.6 g/dL 11.8-15.4 [facility] Ketones Auto test strip (U) [Mass/Vol]Ordered By: Ari Aguero on 06-07-2022 Ketones (U) [Mass/Vol] 2+ Negative [facility] Laboratory - CoagulationOrde red By: Ari Aguero on 06-07-2022 PT Coag (PPP) [Time] 12.7 s 9.0-12.9 [facility] Leukocytes [#/volume] correc jose for nucleated erythrocytes in Blood by Automated counOrdered By: Ari Aguero on 06-07-2022 WBC corrected for nucl RBC Auto (Bld) [#/Vol] 13.5 10*3/uL 3.8-11.6 [facility] Lipase [Enzymatic activity/v olume] in Serum or PlasmaOrdered By: Ari Aguero on 06-07-2022 Lipase [Catalytic activity/Vol] 10.0 U/L 11.0-82.0 [facility] Lymphocytes Auto (Bld) [#/Vo l]Ordered By: Ari Aguero on 06-07-2022 Lymphocytes (Bld) [#/Vol] 1.6 10*3/uL 1.00-4.8 [facility] Lymphocytes/100 WBC Auto (Bl d)Ordered By: Ari Aguero on 06-07-2022 Lymphocytes/100 WBC (Bld) 11.6 % . [facility] MCH Auto (RBC) [Entitic mass ]Ordered By: Ari Aguero on 06-07-2022 MCH (RBC) [Entitic mass] 30.6 pg 24.7-34.3 [facility] MCHC Auto (RBC) [Mass/Vol]Or dered By: Ari Aguero on 06-07-2022 MCHC (RBC) [Mass/Vol] 33.4 g/dL 32.0-35.0 [facility] MCV Auto (RBC) [Entitic vol] Ordered By: Ari Aguero on 06-07-2022 MCV (RBC) [Entitic vol] 91.7 fL 80-100 [facility] Monocyte distribution width [Entitic volume] in Blood by AutomatedOrdered By: Ari Aguero on 06-07-2022 Monocyte distribution width Auto (Bld) [Entitic vol] 20.34 % 0.00-20.00 [facility] Comment on above: For adults in ED, MD W > 20.0 may be associated with a higher risk of sepsis during the first 12 hrs of hospital admission Monocytes Auto (Bld) [#/Vol] Ordered By: Ari Aguero on 06-07-2022 Monocytes (Bld) [#/Vol] 0.6 10*3/uL 0.0-0.8 [facility] Monocytes/100 WBC Auto (Bld) Ordered By: Ari Aguero on 06-07-2022 Monocytes/100 WBC (Bld) 4.7 % . [facility] Neutrophils Auto (Bld) [#/Vo l]Ordered By: Ari Aguero on 06-07-2022 Neutrophils (Bld) [#/Vol] 11.2 10*3/uL 1.8-7.7 [facility] Neutrophils/100 WBC Auto (Bl d)Ordered By: Ari Aguero on 06-07-2022 Neutrophils/100 WBC (Bld) 83.0 % . [facility] Nitrite Test strip Ql (U)Ord ered By: Ari Aguero on 06-07-2022 Nitrite Ql (U) Negative Negative [facility] No Panel InformationOrdered By: Ari Aguero on 06-07-2022 Estimated GFR (CKD-EPI) > 60.0 mL/Min [facility] Pharmacy Creatinine Clearance (Chem 91.63 [facility] Nucleated erythrocytes [Pres ence] in Blood by Automated countOrdered By: Ari Aguero on 06-07-2022 Nucleated RBC Auto Ql (Bld) 0.1 /100{WBC} 0-0.5 [facility] Opiates [Presence] in Urine by Screen methodOrdered By: Ari Aguero on 06-07-2022 Opiates Screen Ql (U) Negative Negative [facility] Phencyclidine Screen Ql (U)O rdered By: Ari Aguero on 06-07-2022 Phencyclidine Ql (U) Negative Negative [facility] Platelet mean volume Auto (B ld) [Entitic vol]Ordered By: Ari Aguero on 06-07-2022 Platelet mean volume (Bld) [Entitic vol] 8.5 fL 6.3-10.7 [facility] Platelet poor plasma interna tional normalized ratio (INR) by coagulation assay (relatOrdered By: Ari Aguero on 06-07-2022 INR Coag (PPP) [Relative time] 1.1 {INR} [facility] Comment on above: INR Therapeutic Rang e [...] 06-07-2022 Platelets (Bld) [#/Vol] 142 10*3/uL 150-450 [facility] Potassium [Moles/volume] in Serum or PlasmaOrdered By: Ari Aguero on 06-07-2022 Potassium [Moles/Vol] 3.7 mmol/L 3.5-5.1 [facility] Protein Auto test strip (U) [Mass/Vol]Ordered By: Ari Aguero on 06-07-2022 Protein (U) [Mass/Vol] 30 mg/dL Negative [facility] Protein [Mass/volume] in Ser um or PlasmaOrdered By: Ari Aguero on 06-07-2022 Protein [Mass/Vol] 7.6 g/dL 6.4-8.9 [facility] RBC Auto (Bld) [#/Vol]Ordere d By: Ari Aguero on 06-07-2022 RBC (Bld) [#/Vol] 4.44 10*6/uL 3.60-5.00 [facility] Serum or plasma albumin/glob ulin mass ratioOrdered By: Ari Aguero on 06-07-2022 Albumin/Globulin [Mass ratio] 1.2 {ratio} [facility] Serum or plasma anion gap de terminationOrdered By: Ari Aguero on 06-07-2022 Anion gap [Moles/Vol] 15.6 mmol/L 6.0-15.0 [facility] Sodium [Moles/volume] in Ser um or PlasmaOrdered By: Ari Aguero on 06-07-2022 Sodium [Moles/Vol] 140 mmol/L 136-145 [facility] Specific gravity Auto test s trip (U) [Rel density]Ordered By: Ari Aguero on 06-07-2022 Specific gravity (U) [Rel density] 1.032 1.001-1.030 [facility] Squamous epithelial cells de tection in urine sediment by light microscopyOrdered By: Ari Aguero on 06-07-2022 Epithelial cells.squamous LM Ql (Urine sed) 5-9 [HPF] 0-2 [facility] Urea nitrogen [Mass/volume] in Serum or PlasmaOrdered By: Ari Aguero on 06-07-2022 Urea nitrogen [Mass/Vol] 18 mg/dL 7-25 [facility] Urine bacteria detection by automated methodOrdered By: Ari Aguero on 06-07-2022 Bacteria Auto Ql (U) None seen None Seen [facility] Urine clarity by refractomet ry automatedOrdered By: Ari Aguero on 06-07-2022 Clarity Refractometry automated (U) Clear Clear [facility] Urine glucose measurement by automated test strip (mass/volume)Ordered By: Ari Aguero on 06-07-2022 Glucose Auto test strip (U) [Mass/Vol] Normal mg/dL Normal [facility] Urine hemoglobin detection b y automated test stripOrdered By: Ari Aguero on 06-07-2022 Hemoglobin Auto test strip Ql (U) Negative Negative [facility] Urine leukocyte esterase det ection by automated test stripOrdered By: Ari Aguero on 06-07-2022 Leukocyte esterase Auto test strip Ql (U) Negative Negative [facility] Urine sediment erythrocyte c ast count by microscopy (number/low power field)Ordered By: Ari Aguero on 06-07-2022 RBC casts LM.LPF (Urine sed) [#/Area] 0-1 [LPF] None Seen [facility] Urobilinogen Auto test strip (U) [Mass/Vol]Ordered By: Ari Aguero on 06-07-2022 Urobilinogen (U) [Mass/Vol] Normal mg/dL Normal [facility] WBC Auto (Bld) [#/Vol]Ordere d By: Ari Aguero on 06-07-2022 WBC (Bld) [#/Vol] 13.5 10*3/uL 3.8-11.6 [facility] pH Auto test strip (U)Ordere d By: Ari Aguero on 06-07-2022 pH (U) 5.5 [pH] 5.0-9.0 [facility] Alanine aminotransferase [En zymatic activity/volume] in Serum or PlasmaOrdered By: Kanchan Sanchez on 04-24-2022 ALT [Catalytic activity/Vol] 48 U/L 7-52 [facility] Albumin [Mass/volume] in Ser um or Plasma by Bromocresol green (BCG) dye binding methoOrdered By: Nimaad Surajad on 04-24-2022 Albumin BCG dye [Mass/Vol] 4.2 g/dL 3.5-5.7 [facility] Alkaline phosphatase [Enzyma tic activity/volume] in Serum or PlasmaOrdered By: Imad Asaad on 04-24-2022 ALP [Catalytic activity/Vol] 85 U/L 34-104 [facility] Aspartate aminotransferase [ Enzymatic activity/volume] in Serum or PlasmaOrdered By: Imad Asaad on 04-24-2022 AST [Catalytic activity/Vol] 48 U/L 13-39 [facility] Basophils Auto (Bld) [#/Vol] Ordered By: Imad Asaad on 04-24-2022 Basophils (Bld) [#/Vol] 0.1 10*3/uL 0.0-0.2 [facility] Basophils/100 WBC Auto (Bld) Ordered By: Imad Asaad on 04-24-2022 Basophils/100 WBC (Bld) 1.2 % . [facility] [place] Bilirubin.direct [Mass/volum e] in Serum or PlasmaOrdered By: Imad Asaad on 04-24-2022 Bilirubin.direct [Mass/Vol] 0.10 mg/dL 0.03-0.18 [facility] [place] Bilirubin.total [Mass/volume ] in Serum or PlasmaOrdered By: Imad Asaad on 04-24-2022 Bilirubin [Mass/Vol] 0.3 mg/dL 0.3-1.0 [facility] Complete Blood Count Auto Di ffon 04-24-2022 Basophils (Bld) [#/Vol] 0.677222850 10*3/uL Normal 0.0-0.2 10*3/uL [employer] Other Basophils/100 WBC (Bld) 1.200 % . % [employer] Other Eosinophils (Bld) [#/Vol] 0.754486122 10*3/uL Normal 0.0-0.45 10*3/uL [employer] Other Eosinophils/100 WBC (Bld) 1.200 % . % [employer] Other Erythrocyte distribution width (RBC) [Ratio] 13.200 % Normal 11.9-15.3 % [employer] Other Hematocrit (Bld) [Volume fraction] 44.200 % Normal 34.0-46.4 % [employer] Other Hemoglobin (Bld) [Mass/Vol] 14.569058 g/dL Normal 11.8-15.4 g/dL [employer] Other Lymphocytes (Bld) [#/Vol] 3.198080524 10*3/uL Normal 1.00-4.8 10*3/uL [employer] Other Lymphocytes/100 WBC (Bld) 39.000 % . % [employer] Other MCH (RBC) [Entitic mass] 31.8000 pg Normal 24.7-34.3 pg [employer] Other MCV (RBC) [Entitic vol] 94.5000 fL Normal 80-100 fL [employer] Other Monocytes (Bld) [#/Vol] 0.998408774 10*3/uL Normal 0.0-0.8 10*3/uL [employer] Other Monocytes/100 WBC (Bld) 6.000 % . % [employer] Other Neutrophils (Bld) [#/Vol] 4.770483669 10*3/uL Normal 1.8-7.7 10*3/uL [employer] Other Neutrophils/100 WBC (Bld) 52.600 % . % [employer] Other Platelet mean volume (Bld) [Entitic vol] 7.9000 fL Normal 6.3-10.7 fL [employer] Other WBC (Bld) [#/Vol] 7.835109228 10*3/uL Normal 3.8 -11.6 10*3/uL [employer] Other Complete Blood Count Auto Diff 7.6 10*3/uL Normal 3.8-11.6 10*3/uL [employer] Other Complete Blood Count Auto Diff 33.6 g/dL Normal 32.0-35.0 g/dL [employer] Other Complete Blood Count Auto Diff 0.5 /100{WBC} Normal 0-0.5 /100{WBC} [employer] Other Eosinophils Auto (Bld) [#/Vo l]Ordered By: Imad Asaad on 04-24-2022 Eosinophils (Bld) [#/Vol] 0.1 10*3/uL 0.0-0.45 [facility] [place] Eosinophils/100 WBC Auto (Bl d)Ordered By: Imad Asaad on 04-24-2022 Eosinophils/100 WBC (Bld) 1.2 % . [facility] [place] Erythrocyte distribution wid th Auto (RBC) [Ratio]Ordered By: Imad Asaad on 04-24-2022 Erythrocyte distribution width (RBC) [Ratio] 13.2 % 11.9-15.3 [facility] [place] Erythrocytes [#/volume] in B lood by Automated countOrdered By: Imad Asaad on 04-24-2022 RBC (Bld) [#/Vol] 4.67 10*6/uL 3.60-5.00 [facility] Globulin Calc (S) [Mass/Vol] Ordered By: Imad Asaad on 04-24-2022 Globulin (S) [Mass/Vol] 3.9 g/dL [facility] [place] HCV genotyping ser/plas ampl ified probeOrdered By: Imad Asaad on 04-24-2022 HCV genotype MOISES+probe Nom 1a . [facility] [place] HIV 1/O/2 Antigen/Antibodyon 04-24-2022 HIV 1/O/2 Antigen/Antibody Non-Reactive . [employer] Other HIV 1 and HIV-2 antibody ass ay with HIV-1 p24 antigen detectionOrdered By: Imad Asaad on 04-24-2022 HIV 1+2 Ab+HIV1 p24 Ag IA Ql Non-Reactive Non Reactive [facility] [place] Comment on above: HIV NegativeHIV-1/HI V-2 antibodies and HIV-1 p24 antigen were NOTdetected. There is no laboratory evidence of HIV infection.Performed at: [address] [id number] Director: Adis Bhatia PhD, Phone: [phone] Hematocrit Auto (Bld) [Volum e fraction]Ordered By: [employer] on 04-24-2022 Hematocrit (Bld) [Volume fraction] 44.2 % 34.0-46.4 [facility] [place] Hemoglobin [Mass/volume] in BloodOrdered By: Imad Asaad on 04-24-2022 Hemoglobin (Bld) [Mass/Vol] 14.8 g/dL 11.8-15.4 [facility] [place] Hep B Real-Time PCR, Quanton 04-24-2022 Hep B Real-Time PCR, Quant Not detected . [employer] Other Hep B Real-Time PCR, Quant [employer] Other Hep C Genotyping Non Reflexo n 04-24-2022 Hep C Genotyping Non Reflex 1a . [employer] Other Hep C RT-PCR, Qnt (Non-Graph )on 04-24-2022 Hep C RT-PCR, Qnt (Non-Graph) 738457 . [employer] Other Hep C RT-PCR, Qnt (Non-Graph) 5.912 . [employer] Other Hepatic Panelon 04-24-2022 Albumin [Mass/Vol] 4.819406 g/dL Normal 3.5-5.7 g/dL [employer] Other Bilirubin [Mass/Vol] 0.9712066 mg/dL Normal 0.3- 1.0 mg/dL [employer] Other Bilirubin.indirect [Mass/Vol] 0.56103512 mg/dL Normal 0.03-0.18 mg/dL [employer] Other Protein [Mass/Vol] 8.475225 g/dL Normal 6.4-8.9 g/dL [employer] Other Hepatic Panel 0.2 mg/dL [employer] Other Hepatic Panel 3.9 g/dL [employer] Other Hepatitis A Antibody Totalon 04-24-2022 Hepatitis A Antibody Total Negative Negative [employer] Other Hepatitis A virus Ab [Presen ce] in Serum by ImmunoassayOrdered By: Imad Laura on 04-24-2022 HAV Ab IA Ql (S) Negative Negative [facility] Comment on above: Performed at: [place] [id number] Director: Adis Bhatia PhD, Phone: [phone] Hepatitis B Core Antibodyon 04-24-2022 Hepatitis B Core Antibody Positive Critically abnormal Negative [employer] Other Hepatitis B virus surface Ag [Presence] in Serum or Plasma by ImmunoassayOrdered By: Imad Asaad on 04-24-2022 HBV surface Ag IA Ql Negative Negative [facility] Hepatitis C virus RNA [log u nits/volume] (viral load) in Serum or Plasma by MOISES withOrdered By: Imad Surajad on 04-24-2022 HCV RNA MOISES+probe [Log units/Vol] [id number] [IU]/mL . [facility] [place] HCV RNA MOISES+probe [Log units/Vol] 5.912 . [facility] [place] Comment on above: Result Units: log10 IU/mL Leukocytes [#/volume] correc jose for nucleated erythrocytes in Blood by Automated counOrdered By: Imad Asaad on 04-24-2022 WBC corrected for nucl RBC Auto (Bld) [#/Vol] 7.6 10*3/uL 3.8-11.6 [facility] [place] Lymphocytes Auto (Bld) [#/Vo l]Ordered By: Imad Asaad on 04-24-2022 Lymphocytes (Bld) [#/Vol] 3.0 10*3/uL 1.00-4.8 [facility] [place] Lymphocytes/100 WBC Auto (Bl d)Ordered By: Imad Asaad on 04-24-2022 Lymphocytes/100 WBC (Bld) 39.0 % . [facility] [place] MCH Auto (RBC) [Entitic mass ]Ordered By: Imad Asaad on 04-24-2022 MCH (RBC) [Entitic mass] 31.8 pg 24.7-34.3 [facility] [place] MCHC Auto (RBC) [Mass/Vol]Or dered By: Imad Asaad on 04-24-2022 MCHC (RBC) [Mass/Vol] 33.6 g/dL 32.0-35.0 [facility] MCV Auto (RBC) [Entitic vol] Ordered By: Imad Asaad on 04-24-2022 MCV (RBC) [Entitic vol] 94.5 fL 80-100 [facility] [place] Monocytes Auto (Bld) [#/Vol] Ordered By: Imad Asaad on 04-24-2022 Monocytes (Bld) [#/Vol] 0.5 10*3/uL 0.0-0.8 [facility] [place] Monocytes/100 WBC Auto (Bld) Ordered By: Imad Asaad on 04-24-2022 Monocytes/100 WBC (Bld) 6.0 % . [facility] [place] Neutrophils Auto (Bld) [#/Vo l]Ordered By: Imad Asaad on 04-24-2022 Neutrophils (Bld) [#/Vol] 4.0 10*3/uL 1.8-7.7 [facility] [place] Neutrophils/100 WBC Auto (Bl d)Ordered By: Imad Asaad on 04-24-2022 Neutrophils/100 WBC (Bld) 52.6 % . [facility] [place] No Panel InformationOrdered By: Imad Laura on 04-24-2022 Hepatitis B Core Total Antibody Positive Negative [facility] [place] Hepatitis B DNA Test Information See comment . [facility] [place] Comment on above: The reportable range for this assay is 10 IU/mL to 1billion IU/mL.Performed at: [address] [id number] Director: Gunnar Shanks MD, Phone: [phone] Hepatitis C RNA (PCR) Interpret See comment . [facility] [place] Comment on above: The quantitative ran ge of this assay is 15 IU/mL to 100million IU/mL. Hepatitis Delta Antibody See comment [facility] [place] Comment on above: See report. Scanned copy available in EMR. Herpes Simplex Virus Note 2 See comment . [facility] [place] Comment on above: This test was develo ped and its performance characteristicsdetermined by [employer]. It has not been cleared or approvedby the U.S. Food and Drug Administration.The FDA has determined that such clearance or approval isnot necessary. This test is used for clinical purposes. Itshould not be regarded as investigational or for research.Performed at: [address] [id number] Director: Gunnar Shanks MD, Phone: [phone] Nucleated erythrocytes [Pres ence] in Blood by Automated countOrdered By: Imad Asaad on 04-24-2022 Nucleated RBC Auto Ql (Bld) 0.5 /100{WBC} 0-0.5 [facility] [place] Platelet mean volume Auto (B ld) [Entitic vol]Ordered By: Imad Asaad on 04-24-2022 Platelet mean volume (Bld) [Entitic vol] 7.9 fL 6.3-10.7 [facility] [place] Platelets [#/volume] in Bloo d by Automated countOrdered By: Imad Asaad on 04-24-2022 Platelets (Bld) [#/Vol] 390 10*3/uL 150-450 [facility] [place] Protein [Mass/volume] in Ser um or PlasmaOrdered By: Imad Asaad on 04-24-2022 Protein [Mass/Vol] 8.1 g/dL 6.4-8.9 [facility] Serum hepatitis B virus surf lady antibody detectionOrdered By: Imad Asaad on 04-24-2022 HBV surface Ab Ql (S) Non-Reactive . [facility] Comment on above: Non Reactive: Incons istent with immunity, less than 10 mIU/mL Reactive: Consistent with immunity, greater than 9.9 mIU/mL Serum or plasma albumin/glob ulin mass ratioOrdered By: Imad Asaad on 04-24-2022 Albumin/Globulin [Mass ratio] 1.1 {ratio} [facility] [place] Serum or plasma hepatitis B virus DNA measurement (units/volume) (viral load) by probOrdered By: Kanchan Sanchez on 04-24-2022 HBV DNA MOISES+probe Qn Not detected . [facility] Serum or plasma hepatitis B virus DNA viral load by probe and target amplification meOrdered By: Kanchan Sanchez on 04-24-2022 HBV DNA MOISES+probe [#/Vol] N/A [facility] [place] HBV DNA MOISES+probe [Log units/Vol] See comment . [facility] [place] Comment on above: Result Units: log10 IU/mLUnable to calculate result since non-numeric resultobtained for component test. Serum or plasma non-glucuron idated bilirubin measurement (mass/volume)Ordered By: Kanchan Sanchez on 04-24-2022 Bilirubin.indirect [Mass/Vol] 0.2 mg/dL [facility] [place] WBC Auto (Bld) [#/Vol]Ordere d By: Kanchan Sanchez on 04-24-2022 WBC (Bld) [#/Vol] 7.6 10*3/uL 3.8-11.6 [facility] Activated partial thrombopla stin time (aPTT) in platelet poor plasma by coagulation aOrdered By: Pavel Yao on 04-11-2022 aPTT Coag (PPP) [Time] 26.1 s 25.1-36.5 [facility] [place] Amphetamine Screen Ql (U)Ord ered By: Pavel Yao on 04-11-2022 Amphetamines Ql (U) Negative Negative [facility] Automated erythrocytes count in urine sediment (number/area)Ordered By: Pavel Yao on 04-11-2022 RBC Auto (Urine sed) [#/Area] 1-2 [HPF] 0-4 [facility] [place] Automated leukocytes count i n urine sediment (number/area)Ordered By: Pavel Yao on 04-11-2022 WBC Auto (Urine sed) [#/Area] 1-2 [HPF] 0-4 [facility] [place] Automated urine hyaline cast s count (number/volume)Ordered By: Pavel Yao on 04-11-2022 Hyaline casts Auto (U) [#/Vol] 1-2 [LPF] 0-1 [facility] [place] Barbiturates [Presence] in U rineOrdered By: Pavel Yao on 04-11-2022 Barbiturates Ql (U) Negative Negative [facility] Basophils Auto (Bld) [#/Vol] Ordered By: Pavel Yao on 04-11-2022 Basophils (Bld) [#/Vol] 0.0 10*3/uL 0.0-0.2 [facility] [place] Basophils/100 WBC Auto (Bld) Ordered By: Pavel Yao on 04-11-2022 Basophils/100 WBC (Bld) 0.3 % . [facility] [place] Benzodiazepines [Presence] i n UrineOrdered By: Pavel Yao on 04-11-2022 Benzodiazepines Ql (U) Negative Negative [facility] [place] Bilirubin Test strip Ql (U)O rdered By: Pavel Yao on 04-11-2022 Bilirubin Ql (U) 1+ Negative [facility] Calcium [Mass/volume] in Ser um or PlasmaOrdered By: Pavel Yao on 04-11-2022 Calcium [Mass/Vol] 8.7 mg/dL 8.2-10.2 [facility] Cannabinoids [Presence] in U rine by Screen methodOrdered By: Pavel Yao on 04-11-2022 Cannabinoids Screen Ql (U) Negative Negative [facility] [place] Comment on above: These are unconfirme d results and should not be used for legal purposes. Drug Cut-Off Concentration: AMPH 1000 ng/mL JANELL 200 ng/mL JAMES 200 ng/mL COCM 300 ng/mL OP 300 ng/mL PCP 25 ng/mL THC 20 ng/mL Carbon dioxide, total [Moles /volume] in Serum or PlasmaOrdered By: Pavel Yao on 04-11-2022 CO2 [Moles/Vol] 20.4 mmol/L 22.0-30.0 [facility] Casts typing in urine sedime nt by light microscopyOrdered By: Pavel Yao on 04-11-2022 Casts LM Nom (Urine sed) None seen [LPF] None Seen [facility] [place] Chloride [Moles/volume] in S marbella or PlasmaOrdered By: Pavel Yao on 04-11-2022 Chloride [Moles/Vol] 100 mmol/L 95-114 [facility] Color Auto (U)Ordered By: Venkatesh Yao on 04-11-2022 Color (U) Dark yellow Yellow [facility] [place] Creatinine and Glomerular fi ltration rate.predicted panel (S/P/Bld)Ordered By: Pavel Yao on 04-11-2022 Creatinine [Mass/Vol] 0.44 mg/dL 0.44-1.03 [facility] Eosinophils Auto (Bld) [#/Vo l]Ordered By: Pavel Yao on 04-11-2022 Eosinophils (Bld) [#/Vol] 0.0 10*3/uL 0.0-0.45 [facility] [place] Eosinophils/100 WBC Auto (Bl d)Ordered By: Pavel Yao on 04-11-2022 Eosinophils/100 WBC (Bld) 0.5 % . [facility] [place] Erythrocyte distribution wid th Auto (RBC) [Ratio]Ordered By: Pavel Yao on 04-11-2022 Erythrocyte distribution width (RBC) [Ratio] 13.5 % 11.9-15.3 [facility] [place] Estimated glomerular filtrat ion rate (GFR) non- AmericanOrdered By: Pavel Yao on 04-11-2022 GFR/1.73 sq M.predicted among non-blacks MDRD (S/P/Bld) [Vol rate/Area] > 60 mL/Min [facility] [place] Glucose [Mass/volume] in Ser um or PlasmaOrdered By: Pavel Yao on 04-11-2022 Glucose [Mass/Vol] 60 mg/dL 70-100 [facility] Comment on above: ADA recommended refe rence rangeRandom Glucose Reference Range is dependent on time and content of last meal. Glucose of more than 200 mg/dL in a nonstressed, ambulatory subject supports the diagnosis of Diabetes Mellitus. HCG ( test) IA.rapi d Ql (U)Ordered By: Pavel Yao on 04-11-2022 HCG ( test) Ql (U) Negative [facility] [place] Hematocrit Auto (Bld) [Volum e fraction]Ordered By: Pavel Yao on 04-11-2022 Hematocrit (Bld) [Volume fraction] 42.4 % 34.0-46.4 [facility] [place] Hemoglobin [Mass/volume] in BloodOrdered By: Pavel Yao on 04-11-2022 Hemoglobin (Bld) [Mass/Vol] 14.4 g/dL 11.8-15.4 [facility] [place] Ketones Auto test strip (U) [Mass/Vol]Ordered By: Pavel Yao on 04-11-2022 Ketones (U) [Mass/Vol] 3+ Negative [facility] [place] Laboratory - Chemistry and C hemistry - challengeOrdered By: Pavel Yao on 04-11-2022 Magnesium [Mass/Vol] 1.7 mg/dL 1.6-2.6 [facility] - CoagulationOrde red By: Pavel Yao on 04-11-2022 PT Coag (PPP) [Time] 12.1 s 9.0-12.9 [facility] - Drug toxicology Ordered By: Pavel Yao on 04-11-2022 Opiates Ql (U) Negative Negative [facility] [place] Leukocytes [#/volume] correc jose for nucleated erythrocytes in Blood by Automated counOrdered By: Pavel Yao on 04-11-2022 WBC corrected for nucl RBC Auto (Bld) [#/Vol] 8.0 10*3/uL 3.8-11.6 [facility] [place] Lymphocytes Auto (Bld) [#/Vo l]Ordered By: Pavel Yao on 04-11-2022 Lymphocytes (Bld) [#/Vol] 1.6 10*3/uL 1.00-4.8 [facility] [place] Lymphocytes/100 WBC Auto (Bl d)Ordered By: Pavel Yao on 04-11-2022 Lymphocytes/100 WBC (Bld) 19.9 % . [facility] [place] MCH Auto (RBC) [Entitic mass ]Ordered By: Pavel Yao on 04-11-2022 MCH (RBC) [Entitic mass] 31.5 pg 24.7-34.3 [facility] [place] MCHC Auto (RBC) [Mass/Vol]Or dered By: Pavel Yao on 04-11-2022 MCHC (RBC) [Mass/Vol] 33.9 g/dL 32.0-35.0 [facility] MCV Auto (RBC) [Entitic vol] Ordered By: Pavel Yao on 04-11-2022 MCV (RBC) [Entitic vol] 93.0 fL 80-100 [facility] [place] Monocyte distribution width [Entitic volume] in Blood by AutomatedOrdered By: Pavel Yao on 04-11-2022 Monocyte distribution width Auto (Bld) [Entitic vol] 18.35 % 0.00-20.00 [facility] [place] Monocytes Auto (Bld) [#/Vol] Ordered By: Pavel Yao on 04-11-2022 Monocytes (Bld) [#/Vol] 0.4 10*3/uL 0.0-0.8 [facility] [place] Monocytes/100 WBC Auto (Bld) Ordered By: Pavel Yao on 04-11-2022 Monocytes/100 WBC (Bld) 5.2 % . [facility] [place] Neutrophils Auto (Bld) [#/Vo l]Ordered By: Pavel Yao on 04-11-2022 Neutrophils (Bld) [#/Vol] 5.9 10*3/uL 1.8-7.7 [facility] [place] Neutrophils/100 WBC Auto (Bl d)Ordered By: Pavel Yao on 04-11-2022 Neutrophils/100 WBC (Bld) 74.1 % . [facility] [place] Nitrite Test strip Ql (U)Ord ered By: Pavel Yao on 04-11-2022 Nitrite Ql (U) Negative Negative [facility] [place] No Panel InformationOrdered By: Pavel Yao on 04-11-2022 D-Dimer Quantitative (PE/DVT) 231 ng/mL 0-243 [facility] [place] Comment on above: The reference range for [...] conditions. Estimated GFR () > 60 mL/Min [facility] [place] Comment on above: GFR estimated refere nce range: According to KDOQI guidelines, <60 ml/min/1.73m2 is sufficient to diagnose a patient with chronic kidney disease. Pharmacy Creatinine Clearance (Chem 177.08 [facility] [place] Nucleated erythrocytes [Pres ence] in Blood by Automated countOrdered By: Pavel Yao on 04-11-2022 Nucleated RBC Auto Ql (Bld) 0.1 /100{WBC} 0-0.5 [facility] [place] Phencyclidine Screen Ql (U)O rdered By: Pavel Yao on 04-11-2022 Phencyclidine Ql (U) Negative Negative [facility] Platelet mean volume Auto (B ld) [Entitic vol]Ordered By: Pavel Yao on 04-11-2022 Platelet mean volume (Bld) [Entitic vol] 8.2 fL 6.3-10.7 [facility] [place] Platelet poor plasma interna tional normalized ratio (INR) by coagulation assay (relatOrdered By: Pavel Yao on 04-11-2022 INR Coag (PPP) [Relative time] 1.0 {INR} [facility] [place] Comment on above: INR Therapeutic Rang e [...] 04-11-2022 Platelets (Bld) [#/Vol] 167 10*3/uL 150-450 [facility] [place] Potassium [Moles/volume] in Serum or PlasmaOrdered By: Pavel Yao on 04-11-2022 Potassium [Moles/Vol] 3.7 mmol/L 3.5-5.1 [facility] Protein Auto test strip (U) [Mass/Vol]Ordered By: Pavel Yao on 04-11-2022 Protein (U) [Mass/Vol] 30 mg/dL Negative [facility] [place] RBC Auto (Bld) [#/Vol]Ordere d By: Pavel Yao on 04-11-2022 RBC (Bld) [#/Vol] 4.56 10*6/uL 3.60-5.00 [facility] Serum or plasma anion gap de terminationOrdered By: Pavel Yao on 04-11-2022 Anion gap [Moles/Vol] 19.3 mmol/L 6.0-15.0 [facility] Sodium [Moles/volume] in Ser um or PlasmaOrdered By: Pavel Yao on 04-11-2022 Sodium [Moles/Vol] 136 mmol/L 136-146 [facility] Specific gravity Auto test s trip (U) [Rel density]Ordered By: Pavel Yao on 04-11-2022 Specific gravity (U) [Rel density] 1.025 1.001-1.030 [facility] [place] Squamous epithelial cells de tection in urine sediment by light microscopyOrdered By: Pavel Yao on 04-11-2022 Epithelial cells.squamous LM Ql (Urine sed) 5-9 [HPF] 0-2 [facility] [place] Troponin I.cardiac [Mass/vol ume] in Serum or Plasma by High sensitivity methodOrdered By: Pavel Yao on 04-11-2022 Troponin I.cardiac High sensitivity method [Mass/Vol] 6 pg/mL 0-15 [facility] [place] Urea nitrogen [Mass/volume] in Serum or PlasmaOrdered By: Pavel Yoa on 04-11-2022 Urea nitrogen [Mass/Vol] 6 mg/dL 9-23 [facility] [place] Urine bacteria detection by automated methodOrdered By: Pavel Yao on 04-11-2022 Bacteria Auto Ql (U) None seen None Seen [facility] Urine clarity by refractomet ry automatedOrdered By: Pavel Yao on 04-11-2022 Clarity Refractometry automated (U) Cloudy Clear [facility] [place] Urine cocaine detectionOrder ed By: Pavel Yao on 04-11-2022 Cocaine Ql (U) Negative Negative [facility] [place] Urine glucose measurement by automated test strip (mass/volume)Ordered By: Pavel Yao on 04-11-2022 Glucose Auto test strip (U) [Mass/Vol] Normal mg/dL Normal [facility] [place] Urine hemoglobin detection b y automated test stripOrdered By: Pavel Yao on 04-11-2022 Hemoglobin Auto test strip Ql (U) 3+ Negative [facility] [place] Urine leukocyte esterase det ection by automated test stripOrdered By: Pavel Yao on 04-11-2022 Leukocyte esterase Auto test strip Ql (U) Negative Negative [facility] [place] Urobilinogen Auto test strip (U) [Mass/Vol]Ordered By: Pavel Yao on 04-11-2022 Urobilinogen (U) [Mass/Vol] mg/dL Normal [facility] [place] WBC Auto (Bld) [#/Vol]Ordere d By: Pavel Yao on 04-11-2022 WBC (Bld) [#/Vol] 8.0 10*3/uL 3.8-11.6 [facility] pH Auto test strip (U)Ordere d By: Pavel Yao on 04-11-2022 pH (U) 6.5 [pH] 5.0-9.0 [facility] [place] Serum or plasma ethanol judi urement (mass/volume)Ordered By: Eric Dooley on 04-04-2022 Ethanol [Mass/Vol] 141 mg/dL [facility] Ethanol [Mass/Vol] 0.141 % [facility] Alkaline phosphatase [Enzyma tic activity/volume] in Serum or PlasmaOrdered By: Eric Dooley on 04-03-2022 ALP [Catalytic activity/Vol] 74 U/L 32-92 [facility] Amphetamine Screen Ql (U)Ord ered By: Eric Dooley on 04-03-2022 Amphetamines Ql (U) Positive Negative [facility] Aspartate aminotransferase [ Enzymatic activity/volume] in Serum or PlasmaOrdered By: Eric Dooley on 04-03-2022 AST [Catalytic activity/Vol] 79 U/L 10-42 [facility] [place] Bacterial blood cultureOrder ed By: Ari Aguero on 04-03-2022 Bacteria identified Cx Nom (Bld) NO GROWTH 5 DAYS [facility] [place] Bacteria identified Cx Nom (Bld) NO GROWTH 5 DAYS [facility] Barbiturates [Presence] in U rineOrdered By: Eric Dooley on 04-03-2022 Barbiturates Ql (U) Negative Negative [facility] Basophils Auto (Bld) [#/Vol] Ordered By: Ari Aguero on 04-03-2022 Basophils (Bld) [#/Vol] 0.1 10*3/uL 0.0-0.2 [facility] [place] Basophils/100 WBC Auto (Bld) Ordered By: Eric Dooley on 04-03-2022 Basophils/100 WBC (Bld) 1.6 % . [facility] Basophils/100 WBC Auto (Bld) Ordered By: Ari Aguero on 04-03-2022 Basophils/100 WBC (Bld) 0.8 % . [facility] Benzodiazepines [Presence] i n UrineOrdered By: Eric Dooley on 04-03-2022 Benzodiazepines Ql (U) Negative Negative [facility] Bilirubin Test strip Ql (U)O rdered By: Eric Dooley on 04-03-2022 Bilirubin Ql (U) Negative Negative [facility] Body fluid albumin measureme nt (mass/volume)Ordered By: Eric Dooley on 04-03-2022 Albumin (Body fld) [Mass/Vol] 3.5 g/dL 3.2-5.5 [facility] C reactive protein [Mass/vol ume] in Serum or PlasmaOrdered By: Ari Aguero on 04-03-2022 CRP [Mass/Vol] 0.7 mg/dL 0.0-1.0 [facility] [place] Calcium [Mass/volume] in Ser um or PlasmaOrdered By: Eric Dooley on 04-03-2022 Calcium [Mass/Vol] 8.8 mg/dL 8.2-10.2 [facility] Cannabinoids [Presence] in U rine by Screen methodOrdered By: Eric Dooley on 04-03-2022 Cannabinoids Screen Ql (U) Negative Negative [facility] [place] Comment on above: These are unconfirme d results and should not be used for legal purposes. Drug Cut-Off Concentration: AMPH 1000 ng/mL JANELL 200 ng/mL JAMES 200 ng/mL COCM 300 ng/mL OP 300 ng/mL PCP 25 ng/mL THC 20 ng/mL Carbon dioxide, total [Moles /volume] in Serum or PlasmaOrdered By: Eric Dooley on 04-03-2022 CO2 [Moles/Vol] 24.9 mmol/L 22.0-30.0 [facility] Color Auto (U)Ordered By: Anita Dooley on 04-03-2022 Color (U) Yellow Yellow [facility] Creatinine and Glomerular fi ltration rate.predicted panel (S/P/Bld)Ordered By: Eric Dooley on 04-03-2022 Creatinine [Mass/Vol] 0.52 mg/dL 0.44-1.03 [facility] Creatinine and Glomerular fi ltration rate.predicted panel (S/P/Bld)Ordered By: Ari Aguero on 04-03-2022 Creatinine [Mass/Vol] 0.55 mg/dL 0.44-1.03 [facility] Eosinophils Auto (Bld) [#/Vo l]Ordered By: Eric Dooley on 04-03-2022 Eosinophils (Bld) [#/Vol] 0.2 10*3/uL 0.0-0.45 [facility] Eosinophils Auto (Bld) [#/Vo l]Ordered By: Ari Aguero on 04-03-2022 Eosinophils (Bld) [#/Vol] 0.1 10*3/uL 0.0-0.45 [facility] Eosinophils/100 WBC Auto (Bl d)Ordered By: Eric Dooley on 04-03-2022 Eosinophils/100 WBC (Bld) 1.8 % . [facility] Eosinophils/100 WBC Auto (Bl d)Ordered By: Ari Aguero on 04-03-2022 Eosinophils/100 WBC (Bld) 1.5 % . [facility] [place] Erythrocyte distribution wid th Auto (RBC) [Ratio]Ordered By: Ari Aguero on 04-03-2022 Erythrocyte distribution width (RBC) [Ratio] 13.3 % 11.9-15.3 [facility] Erythrocyte sedimentation ra te by Photometric methodOrdered By: Ari Aguero on 04-03-2022 ESR Photometric method (Bld) [Velocity] 9 mm/hr 0-19 [facility] [place] Estimated glomerular filtrat ion rate (GFR) non- AmericanOrdered By: Ari Aguero on 04-03-2022 GFR/1.73 sq M.predicted among non-blacks MDRD (S/P/Bld) [Vol rate/Area] > 60 mL/Min [facility] [place] Globulin Calc (S) [Mass/Vol] Ordered By: Eric Dooley on 04-03-2022 Globulin (S) [Mass/Vol] 3.3 g/dL [facility] [place] Hematocrit Auto (Bld) [Volum e fraction]Ordered By: Eric Dooley on 04-03-2022 Hematocrit (Bld) [Volume fraction] 44.1 % 34.0-46.4 [facility] Hematocrit Auto (Bld) [Volum e fraction]Ordered By: Air Aguero on 04-03-2022 Hematocrit (Bld) [Volume fraction] 43.6 % 34.0-46.4 [facility] Hemoglobin [Mass/volume] in BloodOrdered By: Eric Dooley on 04-03-2022 Hemoglobin (Bld) [Mass/Vol] 14.8 g/dL 11.8-15.4 [facility] Hemoglobin [Mass/volume] in BloodOrdered By: Ari Aguero on 04-03-2022 Hemoglobin (Bld) [Mass/Vol] 14.5 g/dL 11.8-15.4 [facility] Ketones Auto test strip (U) [Mass/Vol]Ordered By: Eric Dooley on 04-03-2022 Ketones (U) [Mass/Vol] Negative Negative [facility] [place] Laboratory - Drug toxicology Ordered By: Eric Dooley on 04-03-2022 Opiates Ql (U) Negative Negative [facility] Leukocytes [#/volume] correc jose for nucleated erythrocytes in Blood by Automated counOrdered By: Eric Dooley on 04-03-2022 WBC corrected for nucl RBC Auto (Bld) [#/Vol] 8.3 10*3/uL 3.8-11.6 [facility] [place] Leukocytes [#/volume] correc jose for nucleated erythrocytes in Blood by Automated counOrdered By: Ari Aguero on 04-03-2022 WBC corrected for nucl RBC Auto (Bld) [#/Vol] 7.0 10*3/uL 3.8-11.6 [facility] Lymphocytes Auto (Bld) [#/Vo l]Ordered By: Eric Dooley on 04-03-2022 Lymphocytes (Bld) [#/Vol] 3.9 10*3/uL 1.00-4.8 [facility] [place] Lymphocytes Auto (Bld) [#/Vo l]Ordered By: Ari Aguero on 04-03-2022 Lymphocytes (Bld) [#/Vol] 1.7 10*3/uL 1.00-4.8 [facility] Lymphocytes/100 WBC Auto (Bl d)Ordered By: Eric Dooley on 04-03-2022 Lymphocytes/100 WBC (Bld) 46.7 % . [facility] Lymphocytes/100 WBC Auto (Bl d)Ordered By: Ari Aguero on 04-03-2022 Lymphocytes/100 WBC (Bld) 24.5 % . [facility] MCH Auto (RBC) [Entitic mass ]Ordered By: Eric Dooley on 04-03-2022 MCH (RBC) [Entitic mass] 31.3 pg 24.7-34.3 [facility] MCH Auto (RBC) [Entitic mass ]Ordered By: Ari Aguero on 04-03-2022 MCH (RBC) [Entitic mass] 31.0 pg 24.7-34.3 [facility] MCHC Auto (RBC) [Mass/Vol]Or dered By: Eric Dooley on 04-03-2022 MCHC (RBC) [Mass/Vol] 33.5 g/dL 32.0-35.0 [facility] MCHC Auto (RBC) [Mass/Vol]Or dered By: Ari Aguero on 04-03-2022 MCHC (RBC) [Mass/Vol] 33.3 g/dL 32.0-35.0 [facility] MCV Auto (RBC) [Entitic vol] Ordered By: Eric Dooley on 04-03-2022 MCV (RBC) [Entitic vol] 93.4 fL 80-100 [facility] MCV Auto (RBC) [Entitic vol] Ordered By: Ari Aguero on 04-03-2022 MCV (RBC) [Entitic vol] 93.3 fL 80-100 [facility] Monocyte distribution width [Entitic volume] in Blood by AutomatedOrdered By: Eric Dooley on 04-03-2022 Monocyte distribution width Auto (Bld) [Entitic vol] 20.63 % 0.00-20.00 [facility] Comment on above: For adults in ED, MD W > 20.0 may be associated with a higher risk of sepsis during the first 12 hrs of hospital admission Monocyte distribution width [Entitic volume] in Blood by AutomatedOrdered By: Ari Aguero on 04-03-2022 Monocyte distribution width Auto (Bld) [Entitic vol] 16.81 % 0.00-20.00 [facility] Monocytes Auto (Bld) [#/Vol] Ordered By: Ari Aguero on 04-03-2022 Monocytes (Bld) [#/Vol] 0.5 10*3/uL 0.0-0.8 [facility] Monocytes/100 WBC Auto (Bld) Ordered By: Eric Dooley on 04-03-2022 Monocytes/100 WBC (Bld) 6.5 % . [facility] Monocytes/100 WBC Auto (Bld) Ordered By: Ari Aguero on 04-03-2022 Monocytes/100 WBC (Bld) 6.6 % . [facility] Neutrophils Auto (Bld) [#/Vo l]Ordered By: Eric Dooley on 04-03-2022 Neutrophils (Bld) [#/Vol] 3.6 10*3/uL 1.8-7.7 [facility] Neutrophils Auto (Bld) [#/Vo l]Ordered By: Ari Aguero on 04-03-2022 Neutrophils (Bld) [#/Vol] 4.6 10*3/uL 1.8-7.7 [facility] Neutrophils/100 WBC Auto (Bl d)Ordered By: Eric Dooley on 04-03-2022 Neutrophils/100 WBC (Bld) 43.4 % . [facility] Neutrophils/100 WBC Auto (Bl d)Ordered By: Ari Aguero on 04-03-2022 Neutrophils/100 WBC (Bld) 66.6 % . [facility] Nitrite Test strip Ql (U)Ord ered By: Eric Dooley on 04-03-2022 Nitrite Ql (U) Negative Negative [facility] No Panel InformationOrdered By: Eric Dooley on 04-03-2022 Pharmacy Creatinine Clearance (Chem 173.81 [facility] No Panel InformationOrdered By: Ari Aguero on 04-03-2022 Estimated GFR () > 60 mL/Min [facility] Comment on above: GFR estimated refere nce range: According to KDOQI guidelines, <60 ml/min/1.73m2 is sufficient to diagnose a patient with chronic kidney disease. Pharmacy Creatinine Clearance (Chem 141.66 [facility] Nucleated erythrocytes [Pres ence] in Blood by Automated countOrdered By: Ari Aguero on 04-03-2022 Nucleated RBC Auto Ql (Bld) 0.1 /100{WBC} 0-0.5 [facility] Phencyclidine Screen Ql (U)O rdered By: Eric Dooley on 04-03-2022 Phencyclidine Ql (U) Negative Negative [facility] Platelet mean volume Auto (B ld) [Entitic vol]Ordered By: Eric Dooley on 04-03-2022 Platelet mean volume (Bld) [Entitic vol] 8.0 fL 6.3-10.7 [facility] Platelet mean volume Auto (B ld) [Entitic vol]Ordered By: Ari Aguero on 04-03-2022 Platelet mean volume (Bld) [Entitic vol] 8.1 fL 6.3-10.7 [facility] Platelets Auto (Bld) [#/Vol] Ordered By: Eric Dooley on 04-03-2022 Platelets (Bld) [#/Vol] 191 10*3/uL 150-450 [facility] Platelets Auto (Bld) [#/Vol] Ordered By: Ari Aguero on 04-03-2022 Platelets (Bld) [#/Vol] 179 10*3/uL 150-450 [facility] Protein Auto test strip (U) [Mass/Vol]Ordered By: Eric Dooley on 04-03-2022 Protein (U) [Mass/Vol] Negative Negative [facility] Protein [Mass/volume] in Ser um or PlasmaOrdered By: Eric Dooley on 04-03-2022 Protein [Mass/Vol] 6.8 g/dL 6.1-7.9 [facility] RBC Auto (Bld) [#/Vol]Ordere d By: Eric Dooley on 04-03-2022 RBC (Bld) [#/Vol] 4.72 10*6/uL 3.60-5.00 [facility] RBC Auto (Bld) [#/Vol]Ordere d By: Ari Aguero on 04-03-2022 RBC (Bld) [#/Vol] 4.68 10*6/uL 3.60-5.00 [facility] Serum or plasma alanine urbina otransferase measurement without P-5'-P (enzymatic activiOrdered By: Eric Dooley on 04-03-2022 ALT No additional P-5'-P [Catalytic activity/Vol] 74 U/L 10-60 [facility] Serum or plasma albumin/glob ulin mass ratioOrdered By: Eric Dooley on 04-03-2022 Albumin/Globulin [Mass ratio] 1.1 {ratio} [facility] Serum or plasma anion gap de terminationOrdered By: Eric Dooley on 04-03-2022 Anion gap [Moles/Vol] 13.6 mmol/L 6.0-15.0 [facility] Serum or plasma anion gap de terminationOrdered By: Ari Aguero on 04-03-2022 Anion gap [Moles/Vol] 10.4 mmol/L 6.0-15.0 [facility] Serum or plasma calcium judi urement (mass/volume)Ordered By: Ari Aguero on 04-03-2022 Calcium [Mass/Vol] 8.9 mg/dL 8.2-10.2 [facility] Serum or plasma chloride nataliia surement (moles/volume)Ordered By: Eric Dooley on 04-03-2022 Chloride [Moles/Vol] 104 mmol/L 95-114 [facility] Serum or plasma chloride nataliia surement (moles/volume)Ordered By: Ari Aguero on 04-03-2022 Chloride [Moles/Vol] 103 mmol/L 95-114 [facility] Serum or plasma glucose judi urement (mass/volume)Ordered By: Eric Dooley on 04-03-2022 Glucose [Mass/Vol] 88 mg/dL 70-100 [facility] Comment on above: ADA recommended refe rence rangeRandom Glucose Reference Range is dependent on time and content of last meal. Glucose of more than 200 mg/dL in a nonstressed, ambulatory subject supports the diagnosis of Diabetes Mellitus. Serum or plasma glucose judi urement (mass/volume)Ordered By: Ari Aguero on 04-03-2022 Glucose [Mass/Vol] 87 mg/dL 70-100 [facility] Comment on above: ADA recommended refe rence rangeRandom Glucose Reference Range is dependent on time and content of last meal. Glucose of more than 200 mg/dL in a nonstressed, ambulatory subject supports the diagnosis of Diabetes Mellitus. Serum or plasma potassium me asurement (moles/volume)Ordered By: Eric Dooley on 04-03-2022 Potassium [Moles/Vol] 3.5 mmol/L 3.5-5.1 [facility] Serum or plasma potassium me asurement (moles/volume)Ordered By: Ari Aguero on 04-03-2022 Potassium [Moles/Vol] 4.1 mmol/L 3.5-5.1 [facility] Serum or plasma sodium measu rement (moles/volume)Ordered By: Eric Dooley on 04-03-2022 Sodium [Moles/Vol] 139 mmol/L 136-146 [facility] Comment on above: Delta: 133 on Serum or plasma sodium measu rement (moles/volume)Ordered By: Ari Aguero on 04-03-2022 Sodium [Moles/Vol] 133 mmol/L 136-146 [facility] Serum or plasma total biliru bin measurement (mass/volume)Ordered By: Eric Dooley on 04-03-2022 Bilirubin [Mass/Vol] 0.3 mg/dL 0.3-1.2 [facility] Serum or plasma total carbon dioxide measurement (moles/volume)Ordered By: Ari Aguero on 04-03-2022 CO2 [Moles/Vol] 23.7 mmol/L 22.0-30.0 [facility] Serum or plasma urea nitroge n measurement (mass/volume)Ordered By: Ari Aguero on 04-03-2022 Urea nitrogen [Mass/Vol] 7 mg/dL 11-03 [facility] [place] Specific gravity Auto test s trip (U) [Rel density]Ordered By: Eric Dooley on 04-03-2022 Specific gravity (U) [Rel density] 1.002 1.001-1.030 [facility] [place] Urea nitrogen [Mass/volume] in Serum or PlasmaOrdered By: Eric Dooley on 04-03-2022 Urea nitrogen [Mass/Vol] 5 mg/dL 11-03 [facility] Urine clarity by refractomet ry automatedOrdered By: Eric Dooley on 04-03-2022 Clarity Refractometry automated (U) Clear Clear [facility] Urine cocaine detectionOrder ed By: Eric Dooley on 04-03-2022 Cocaine Ql (U) Negative Negative [facility] Urine glucose measurement by automated test strip (mass/volume)Ordered By: Eric Dooley on 04-03-2022 Glucose Auto test strip (U) [Mass/Vol] Normal mg/dL Normal [facility] Urine hemoglobin detection b y automated test stripOrdered By: Eric Dooley on 04-03-2022 Hemoglobin Auto test strip Ql (U) Negative Negative [facility] Urine leukocyte esterase det ection by automated test stripOrdered By: Eric Dooley on 04-03-2022 Leukocyte esterase Auto test strip Ql (U) Negative Negative [facility] Urobilinogen Auto test strip (U) [Mass/Vol]Ordered By: Eric Dooley on 04-03-2022 Urobilinogen (U) [Mass/Vol] Normal mg/dL Normal [facility] WBC Auto (Bld) [#/Vol]Ordere d By: Eric Dooley on 04-03-2022 WBC (Bld) [#/Vol] 8.3 10*3/uL 3.8-11.6 [facility] WBC Auto (Bld) [#/Vol]Ordere d By: Ari Aguero on 04-03-2022 WBC (Bld) [#/Vol] 7.0 10*3/uL 3.8-11.6 [facility] pH Auto test strip (U)Ordere d By: Eric Dooley on 04-03-2022 pH (U) 6.0 [pH] 5.0-9.0 [facility] Acetaminophenon 03-12-2022 Acetaminophen [Mass/Vol] ug/mL Low 10-30 [facility] Comment on above: Performed By: #### C DP, CP, MG, HCG, ACET, ALCB, SALI #### [facility] [address] [place] [address] Preparer Samples And Repairs: Foreign Page DO Acetaminophen Levelon 2022 Acetaminophen Level <5 Low 10 - 30 ug/mL [facility] CBC with Auto Differentialon 03-12-2022 Absolute Eos # 0.10 [facility] Absolute Lymph # 3.70 [facility] Absolute [place] # 0.30 [facility] Basophils (Bld) [#/Vol] 0.10 10*3/uL [facility] Basophils/100 WBC (Bld) 1 % 0 - 2 % [facility] Eosinophils/100 WBC (Bld) 1 % 0 - 4 % [facility] Hematocrit (Bld) [Volume fraction] 40.5 % 36 - 46 % [facility] Hemoglobin (Bld) [Mass/Vol] 13.3 g/dL 12.0 - 16.0 g/dL [facility] Lymphocytes/100 WBC (Bld) 44 % 24 - 44 % [facility] MCH (RBC) [Entitic mass] 31.1 pg 26 - 34 pg [facility] MCHC (RBC) [Mass/Vol] 32.8 g/dL 31 - 37 g/dL [facility] MCV (RBC) [Entitic vol] 94.8 fL 80 - 100 fL [facility] Monocytes/100 WBC (Bld) 4 % 1 - 7 % [facility] Platelet distribution width (Bld) [Ratio] 13.3 % 11.5 - 14.9 % [facility] Platelet mean volume (Bld) [Entitic vol] 7.3 fL 6.0 - 12.0 fL [facility] Platelets (Bld) [#/Vol] 301 10*3/uL [facility] RBC (Bld) [#/Vol] 4.27 10*6/uL 4.0 - 5.2 m/uL [facility] Segmented neutrophils/100 WBC (Bld) 50 % 36 - 66 % [facility] Segs Absolute 4.20 [facility] WBC (Bld) [#/Vol] 8.3 10*3/uL [facility] CBC with Diffon 03-12-2022 Abs. Basophil 0.10 k/uL Normal 0.0-0.2 [facility] Comment on above: Performed By: #### C DP, CP, MG, HCG, ACET, ALCB, SALI #### [facility] [address] [place] [address] Preparer Samples And Repairs: Foreign Page DO Abs.Neutrophil (Seg) 4.20 k/uL Normal 1.3-9.1 [facility] Comment on above: Performed By: #### C DP, CP, MG, HCG, ACET, ALCB, SALI #### [facility] [address] [place] [address] Preparer Samples And Repairs: Foreign Page DO Basophils/100 WBC (Bld) 1 % Normal 0-2 [facility] Comment on above: Performed By: #### C DP, CP, MG, HCG, ACET, ALCB, SALI #### [facility] [place] [address] Preparer Samples And Repairs: Foreign Page DO Eosinophils (Bld) [#/Vol] 0.10 10*3/uL Normal 0.0-0.4 [facility] Comment on above: Performed By: #### C DP, CP, MG, HCG, ACET, ALCB, SALI #### [facility] [address] [place] [address] Preparer Samples And Repairs: Foreign Page DO Eosinophils/100 WBC (Bld) 1 % Normal 0-4 [facility] Comment on above: Performed By: #### C DP, CP, MG, HCG, ACET, ALCB, SALI #### [facility] [address] [place] [address] Preparer Samples And Repairs: Foreign Page DO Erythrocyte distribution width (RBC) [Ratio] 13.3 % Normal 11.5-14.9 [facility] Comment on above: Performed By: #### C DP, CP, MG, HCG, ACET, ALCB, SALI #### [facility] [address] [place] [address] Preparer Samples And Repairs: Foreign Page DO Hematocrit (Bld) [Volume fraction] 40.5 % Normal 36-46 [facility] Comment on above: Performed By: #### C DP, CP, MG, HCG, ACET, ALCB, SALI #### [facility] [address] [place] [address] Preparer Samples And Repairs: Foreign Page DO Hemoglobin (Bld) [Mass/Vol] 13.3 g/dL Normal 12.0-16.0 [facility] Comment on above: Performed By: #### C DP, CP, MG, HCG, ACET, ALCB, SALI #### [facility] [place] [address] Preparer Samples And Repairs: Foreign Page DO Lymphocytes (Bld) [#/Vol] 3.70 10*3/uL Normal 1.0-4.8 [facility] Comment on above: Performed By: #### C DP, CP, MG, HCG, ACET, ALCB, SALI #### [facility] [address] [place] [address] Preparer Samples And Repairs: Foreign Page DO Lymphocytes/100 WBC (Bld) 44 % Normal 24-44 [facility] Comment on above: Performed By: #### C DP, CP, MG, HCG, ACET, ALCB, SALI #### [facility] [place] [address] Preparer Samples And Repairs: Foreign Page DO MCH (RBC) [Entitic mass] 31.1 pg Normal 26-34 [facility] Comment on above: Performed By: #### C DP, CP, MG, HCG, ACET, ALCB, SALI #### [facility] [address] [place] [address] Preparer Samples And Repairs: Foreign Page DO MCHC (RBC) [Mass/Vol] 32.8 g/dL Normal 31-37 [facility] Comment on above: Performed By: #### C DP, CP, MG, HCG, ACET, ALCB, SALI #### [facility] [address] [place] [address] Preparer Samples And Repairs: Foreign Page DO MCV (RBC) [Entitic vol] 94.8 fL Normal 80-100 [facility] Comment on above: Performed By: #### C DP, CP, MG, HCG, ACET, ALCB, SALI #### [facility] [address] [place] [address] Preparer Samples And Repairs: Foreign Page DO Monocytes (Bld) [#/Vol] 0.30 10*3/uL Normal 0.1-1.3 [facility] Comment on above: Performed By: #### C DP, CP, MG, HCG, ACET, ALCB, SALI #### [facility] [address] [place] [address] Preparer Samples And Repairs: Foreign Page DO Monocytes/100 WBC (Bld) 4 % Normal 1-7 [facility] Comment on above: Performed By: #### C DP, CP, MG, HCG, ACET, ALCB, SALI #### [facility] [place] [address] Preparer Samples And Repairs: Foreign Page DO Neutrophil (Seg) 50 % Normal 36-66 [facility] Comment on above: Performed By: #### C DP, CP, MG, HCG, ACET, ALCB, SALI #### [facility] [address] [place] [address] [employer]: Foreign Page DO Platelet mean volume (Bld) [Entitic vol] 7.3 fL Normal 6.0-12.0 [facility] Comment on above: Performed By: #### C DP, CP, MG, HCG, ACET, ALCB, SALI #### [facility] [address] [place] [address] [employer] Rep[employer]: Foreign Page DO Platelets (Bld) [#/Vol] 301 10*3/uL Normal 150-450 [facility] Comment on above: Performed By: #### C DP, CP, MG, HCG, ACET, ALCB, SALI #### [facility] [address] [place] [address] [employer]: Foreign Page DO RBC (Bld) [#/Vol] 4.27 10*6/uL Normal 4.0-5.2 [facility] Comment on above: Performed By: #### C DP, CP, MG, HCG, ACET, ALCB, SALI #### [facility] [address] [place] [address] [employer]: Foreign Page DO WBC (Bld) [#/Vol] 8.3 10*3/uL Normal 3.5-11.0 [facility] Comment on above: Performed By: #### C DP, CP, MG, HCG, ACET, ALCB, SALI #### [facility] [address] [place] [address] [employer]: Foreign Page DO CMPon 03-12-2022 Albumin [Mass/Vol] 3.6 g/dL 3.5 - 5.2 g/dL [facility] ALP (Bld) [Catalytic activity/Vol] 123 U/L High 35 - 104 U/L [facility] ALT [Catalytic activity/Vol] 78 U/L High 5 - 33 U/L [facility] Anion gap [Moles/Vol] 12 mmol/L 9 - 17 mmol/L [facility] AST [Catalytic activity/Vol] 143 U/L High NINF - 32 U/L [facility] Bilirubin [Mass/Vol] 0.2 mg/dL Low 0.3 - 1 .2 mg/dL [facility] Calcium [Mass/Vol] 8.5 mg/dL Low 8.6 - 10. 4 mg/dL [facility] Chloride [Moles/Vol] 105 mmol/L 98 - 10 7 mmol/L [facility] CO2 [Moles/Vol] 23 mmol/L 20 - 31 mmol/L [facility] Creatinine [Mass/Vol] 0.53 mg/dL 0.50 - 0.90 mg/dL [facility] GFR/1.73 sq M.predicted MDRD (S/P/Bld) [Vol rate/Area] - PINF [facility] Comment on above: These results are not [...] [Mass/Vol] 72 mg/dL 70 - 99 mg/dL [facility] Interpretation and review of laboratory results Abnormal [facility] Potassium [Moles/Vol] 3.8 mmol/L 3.7 - 5.3 mmol/L [facility] Protein [Mass/Vol] 7.8 g/dL 6.4 - 8.3 g/dL [facility] Sodium [Moles/Vol] 140 mmol/L 135 - 144 mmol/L [facility] Urea nitrogen (BldV) [Mass/Vol] 5 mg/dL Low 6 - 20 mg/dL [facility] CT HEAD WO CONTRASTon 2022 CT HEAD [...] Varun Hager MD 03/12/22 Final result Normal [facility] CT Head W/O Contraston 03-12 No acute intracrania l abnormality. [facility] EXAMINATION: CT OF THE HEAD WITHOUT CONTRAST [...] of the visualized skull or soft tissues. [facility] Varun Hager MD - 03/12/2022 EXAMINATION: CT [...] soft tissues. IMPRESSION: No acute intracranial abnormality. [facility] [employer] Work Phone: Radiology Study observation (narrative) [facility] [employer] Phone: CT Head W/O ContrastOrdered By: Varun Hager on 03-12-2022 [facility] [employer] Phone: Comp Metabolic Profon 2022 Albumin [Mass/Vol] 3.6 g/dL Normal 3.5-5.2 [facility] Comment on above: Performed By: #### C DP, CP, MG, HCG, ACET, ALCB, SALI #### [facility] [address] [place] [address] [employer]arer [employer]: Foreign Page DO Alkaline Phos 123 U/L High 35-104 [facility] Comment on above: Performed By: #### C DP, CP, MG, HCG, ACET, ALCB, SALI #### [facility] [address] [place] [address] [employer]: Foreign Page DO ALT [Catalytic activity/Vol] 78 U/L High 5-33 [facility] Comment on above: Performed By: #### C DP, CP, MG, HCG, ACET, ALCB, SALI #### [facility] [address] [place] [address] Preparer [employer]: Foreign Page DO Anion gap [Moles/Vol] 12 mmol/L Normal 9-17 [facility] Comment on above: Performed By: #### C DP, CP, MG, HCG, ACET, ALCB, SALI #### [facility] [address] [place] [address] [employer]arer [employer]: Foreign Page DO AST [Catalytic activity/Vol] 143 U/L High <32 [facility] Comment on above: Performed By: #### C DP, CP, MG, HCG, ACET, ALCB, SALI #### [facility] [address] [place] [address] [employer]arer [employer]: Foreign Page DO Bilirubin [Mass/Vol] 0.2 mg/dL Low 0.3-1.2 [facility] Comment on above: Performed By: #### C DP, CP, MG, HCG, ACET, ALCB, SALI #### [facility] [address] [place] [address] [employer]arer [employer]: Foreign Page DO Calcium [Mass/Vol] 8.5 mg/dL Low 8.6-10.4 [facility] Comment on above: Performed By: #### C DP, CP, MG, HCG, ACET, ALCB, SALI #### [facility] [address] [place] [address] [employer]: Foreign Page DO Chloride [Moles/Vol] 105 mmol/L Normal 98-107 [facility] Comment on above: Performed By: #### C DP, CP, MG, HCG, ACET, ALCB, SALI #### [facility] [address] [place] [address] [employer]arer [employer]: Foreign Page DO CO2 [Moles/Vol] 23 mmol/L Normal 20-31 [facility] Comment on above: Performed By: #### C DP, CP, MG, HCG, ACET, ALCB, SALI #### [facility] [address] [facility] [place] [address] Preparer [employer]: Foreign Page DO Creatinine [Mass/Vol] 0.53 mg/dL Normal 0.50-0.90 [facility] Comment on above: Performed By: #### C DP, CP, MG, HCG, ACET, ALCB, SALI #### [facility] [address] [facility] [place] [address] [employer]: Foreign Page DO GFR/1.73 sq M.predicted among non-blacks MDRD (S/P/Bld) [Vol rate/Area] mL/min/{1.73_m2} Normal >60 [facility] Comment on above: Result Comment: These results [...] CP, MG, HCG, ACET, ALCB, SALI #### [facility] [address] [facility] [place] [address] [employer]arer [employer]: Foreign Page DO Glucose [Mass/Vol] 72 mg/dL Normal 70-99 [facility] Comment on above: Performed By: #### C DP, CP, MG, HCG, ACET, ALCB, SALI #### [facility] [address] [facility] [place] [address] Preparer [employer]: Foreign Page DO Potassium [Moles/Vol] 3.8 mmol/L Normal 3.7-5.3 [facility] Comment on above: Performed By: #### C DP, CP, MG, HCG, ACET, ALCB, SALI #### [facility] [address] [place] [address] Preparer Samples [employer] Rep[employer]: Foreign Page DO Protein [Mass/Vol] 7.8 g/dL Normal 6.4-8.3 [facility] Comment on above: Performed By: #### C DP, CP, MG, HCG, ACET, ALCB, SALI #### [facility] [address] [place] [address] [employer]: Foreign Page DO Sodium [Moles/Vol] 140 mmol/L Normal 135-144 [facility] Comment on above: Performed By: #### C DP, CP, MG, HCG, ACET, ALCB, SALI #### [facility] [address] [place] [address] [employer]: Foreign Page DO Urea nitrogen [Mass/Vol] 5 mg/dL Low 6-20 [facility] Comment on above: Performed By: #### C DP, CP, MG, HCG, ACET, ALCB, SALI #### [facility] [address] [place] [address] [employer]: Foreign Page DO Drug Scr, Abuse, Uron 2022 Amphetamine(s),Ur Negative Normal NEG [facility] Comment on above: Result Comment: (Positive cutoff 1000 ng/mL) Performed By: #### U AX, KAUSHAL #### [facility] [address] [place] [address] Preparer [employer]: Foreign Page DO Barbiturate(s),Ur Negative Normal NEG [facility] Comment on above: Result Comment: (Positive cutoff 200 ng/mL) Performed By: #### U AX, KAUSHAL #### [facility] [address] [place] [address] Preparer [employer]: Foreign Page DO Benzodiazepine(s) Negative Normal NEG [facility] Comment on above: Result Comment: (Positive cutoff 200 ng/mL) Performed By: #### U AX, KAUSHAL #### [facility] [address] [place] [address] Preparer Samples [employer] Rep[employer]: Foreign Page DO Cannabinoid(s),Ur Negative Normal NEG [facility] Comment on above: Result Comment: (Positive cutoff 50 ng/mL) Performed By: #### U AX, KAUSHAL #### [facility] [address] [place] [address] Preparer [employer]: Foreign Page DO Cocaine Metabolite Negative Normal NEG [facility] Comment on above: Result Comment: (Positive cutoff 300 ng/mL) Performed By: #### U AX, KAUSHAL #### [facility] [address] [place] [address] Preparer [employer]: Foreign Page DO Fentanyl, Urine Negative Normal NEG [facility] Comment on above: Result Comment: (Positive cutoff 5 ng/ml) Performed By: #### U AX, KAUSHAL #### [facility] [address] [place] [address] Preparer [employer]: Foreign Page DO Interpretive Info Assay provides medic al screening only. The absence of expected drug(s) and/or Normal [facility] Comment on above: Result Comment: meta bolite(s) may indicate diluted or adulterated urine, limitations of testing or timing of collection. Testing for legal purposes should be confirmed by another method. To request confirmation of test result, please call the lab within 7 days of sample submission. Performed By: #### U AX, KAUSHAL #### [facility] [address] [place] [address] [employer]arer [employer]: Foreign Page DO Methadone Ql (U) Positive Abnormal NEG [facility] Comment on above: Result Comment: (Positive cutoff 300 ng/mL) Performed By: #### U AX, KAUSHAL #### [facility] [address] [place] [address] Preparer [employer]: Foreign Page DO Opiate(s), Ur Negative Normal NEG [facility] Comment on above: Result Comment: (Positive cutoff 300 ng/mL) Performed By: #### U AX, KAUSHAL #### [facility] [address] [place] [address] Prep[employer]: Foreign Page DO Oxycodone, Urine Negative Normal NEG [facility] Comment on above: Result Comment: (Positive cutoff 100 ng/mL) Performed By: #### U AX, KAUSHAL #### [facility] [address] [place] [address] Preparer [employer]: Foreign Page DO Phencyclidine, Ur Negative Normal NEG [facility] Comment on above: Result Comment: (Positive cutoff 25 ng/mL) Performed By: #### U AX, KAUSHAL #### [facility] [address] [place] [address] [employer]: Foreign Page DO ETOHon 03-12-2022 Ethanol [Mass/Vol] 358 mg/dL Critically high NINF - 10 mg/dL [facility] Ethanol percent 0.358 % [facility] Ethanol Alcoholon 03-12-2022 Ethanol [Mass/Vol] 358 mg/dL Critically high <10 M [facility] Comment on above: Performed By: #### C DP, CP, MG, HCG, ACET, ALCB, SALI #### [facility] [address] [place] [address] Preparer [employer]: Foreign Page DO Ethanol percent 0.358 % [facility] Comment on above: Performed By: #### C DP, CP, MG, HCG, ACET, ALCB, SALI #### [facility] [address] [facility] [place] [address] Preparer [employer] Rep[employer]: Foreign Page DO HCG Qualitative, Serumon hCG Qual Negative NEGATIVE [facility] Comment on above: Specimens with hCG l evels near the threshold of the test (25 mIU/mL) may give a negative or indeterminate result. In such cases, another test should be performed with a new specimen in 48-72 hours. If early is suspected clinically in this setting, correlation with quantitative serum b-hCG level is suggested. [facility] HCG Screen, Bloodon 03-12-19 HCG Screen, Blood Negative Normal NEG [facility] Comment on above: Result Comment: Spec imens [...] CP, MG, HCG, ACET, ALCB, SALI #### [facility] [address] [facility] [place] [address] Preparer [employer]: Foreign Page DO Magnesiumon 03-12-2022 Magnesium [Mass/Vol] 2.0 mg/dL Normal 1.6-2.6 [facility] Comment on above: Performed By: #### C DP, CP, MG, HCG, ACET, ALCB, SALI #### [facility] [address] [facility] [place] [address] Preparer [employer]: Foreign Page DO Magnesium [Mass/Vol] 2.0 mg/dL 1.6 - 2 .6 mg/dL [facility] No Panel Informationon 03-12 Interpretation and review of laboratory results Abnormal [facility] Salicylateon 03-12-2022 Salicylate <1 Low 3-10 [facility] Comment on above: Performed By: #### C DP, CP, MG, HCG, ACET, ALCB, SALI #### [facility] [address] [place] [address] [employer]arer [employer]: Foreign Page DO Salicylate Lvl mg/dL Low 3 - 10 mg/dL ARCHANA FLORESMadeleine GAVI [facility] UA w/Reflex Cultureon 2022 Bilirubin, SemiQt,Ur Negative Normal NEG [facility] Comment on above: Performed By: #### U AX, KAUSHAL #### [facility] [address] [place] [address] [employer]: Foreign Page DO Blood, Urine Negative Normal NEG [facility] Comment on above: Performed By: #### U AX, KAUSHAL #### [facility] [address] [place] [address] Prep[employer]: Foreign Page DO Clarity (U) Clear Normal CLEAR [facility] Comment on above: Performed By: #### U AX, KAUSHAL #### [facility] [address] [place] [address] Preparer [employer]: Foreign Page DO Color (U) Yellow Normal YEL [facility] Comment on above: Performed By: #### U AX, KAUSHAL #### [facility] [address] [place] [address] Prep[employer]: Foreign Page DO Comment Microscopic exam not performed based on chemical results unless requested in Normal [facility] Comment on above: Result Comment: orig inal order. Performed By: #### U AX, KAUSHAL #### [facility] [address] [place] [address] [employer]: Foreign Page DO Glucose Ql (U) Negative Normal NEG [facility] Comment on above: Performed By: #### U AX, KAUSHAL #### [facility] [address] [place] [address] Preparer [employer]: Foreign Page DO Ketones Ql (U) Negative Normal NEG [facility] Comment on above: Performed By: #### U AX, KAUSHAL #### [facility] [address] [place] [address] Preparer [employer]: Foreign Page DO Leukocyte esterase Test strip Ql (U) Negative Normal NEG [facility] Comment on above: Performed By: #### U AX, KAUSHAL #### [facility] [address] [place] [address] Preparer [employer]: Foreign Page DO Nitrite,Ur Negative Normal NEG [facility] Comment on above: Performed By: #### U AX, KAUSHAL #### [facility] [address] [place] [address] Preparer [employer]: Foreign Page DO PH,Ur 6.0 Normal 5.0-8.0 [facility] Comment on above: Performed By: #### U AX, KAUSHAL #### [facility] [address] [place] [address] Prep[employer]: Foreign Page DO Protein Ql (U) Negative Normal NEG [facility] Comment on above: Performed By: #### U AX, KAUSHAL #### [facility] [address] [place] [address] Preparer [employer]: Foreign Page DO Spec. [place],Ur 1.009 Normal 1.000-1.030 [facility] Comment on above: Performed By: #### U AX, KAUSHAL #### [facility] [address] [place] [address] Preparer [employer]: Foreign Page DO Urobilinogen,Ur Normal Normal NORM [facility] Comment on above: Performed By: #### U AX, KAUSHAL #### [facility] [address] [place] [address] [employer]arer [employer]: Foreign Page, DO Urinalysis with Reflex to Cu ltureon 03-12-2022 Bilirubin Urine Negative NEGATIVE [facility] Color, UA Yellow Yellow [facility] Glucose, Ur Negative NEGATIVE [facility] Ketones Ql (U) Negative NEGATIVE [facility] Leukocyte esterase Test strip Ql (U) Negative NEGATIVE [facility] Nitrite, Urine Negative NEGATIVE [facility] pH, UA 6.0 5.0 - 8.0 [facility] Protein, UA Negative NEGATIVE [facility] Specific [place], UA 1.009 1.000 - 1.030 [facility] Turbidity UA Clear Clear [facility] Urinalysis Comments Microscopic exam not performed based on chemical results unless requested in original order. [facility] Urine Hgb Negative NEGATIVE [facility] Urobilinogen, Urine Normal Normal [facility] Urine Drug Screenon 03-12-19 Amphetamine Screen, Ur Negative NEGATIVE [facility] Comment on above: (Positive cutoff 1000 ng/mL) Barbiturate Screen, Ur Negative NEGATIVE [facility] Comment on above: (Positive cutoff 200 ng/mL) Benzodiazepine Screen, Urine Negative NEGATIVE [facility] Comment on above: (Positive cutoff 200 ng/mL) Cannabinoid Scrn, Ur Negative NEGATIVE [facility] Comment on above: (Positive cutoff 50 ng/mL) Cocaine Metabolite, Urine Negative NEGATIVE [facility] Comment on above: (Positive cutoff 300 ng/mL) Fentanyl, Ur Negative NEGATIVE [facility] Comment on above: (Positive cutoff 5 ng/ml) Interpretation and review of laboratory results Abnormal [facility] Methadone Screen, Urine Positive Abnormal NEGATIVE [facility] Comment on above: (Positive cutoff 300 ng/mL) Opiates, Urine Negative NEGATIVE [facility] Comment on above: (Positive cutoff 300 ng/mL) Oxycodone Screen, Ur Negative NEGATIVE [facility] Comment on above: (Positive cutoff 100 ng/mL) Phencyclidine, Urine Negative NEGATIVE [facility] Comment on above: (Positive cutoff 25 ng/mL) Test Information Assay provides medic al screening only. The absence of expected drug(s) and/or metabolite(s) may indicate diluted or adulterated urine, limitations of testing or timing of collection. [facility] Comment on above: Testing for legal pu rposes should be confirmed by another method. To request confirmation of test result, please call the lab within 7 days of sample submission. [facility] Amphetamine Screen Ql (U)Ord ered By: Ari Aguero on 03-05-2022 Amphetamines Ql (U) Negative Negative [facility] Barbiturates [Presence] in U rineOrdered By: Ari Aguero on 03-05-2022 Barbiturates Ql (U) Negative Negative [facility] Basophils Auto (Bld) [#/Vol] Ordered By: Ari Aguero on 03-05-2022 Basophils (Bld) [#/Vol] 0.1 10*3/uL 0.0-0.2 [facility] Basophils/100 WBC Auto (Bld) Ordered By: Ari Aguero on 03-05-2022 Basophils/100 WBC (Bld) 0.6 % . [facility] Benzodiazepines [Presence] i n UrineOrdered By: Ari Aguero on 03-05-2022 Benzodiazepines Ql (U) Negative Negative [facility] Bilirubin Test strip Ql (U)O rdered By: Ari Aguero on 03-05-2022 Bilirubin Ql (U) Negative Negative [facility] Body fluid albumin measureme nt (mass/volume)Ordered By: Ari Aguero on 03-05-2022 Albumin (Body fld) [Mass/Vol] 3.3 g/dL 3.2-5.5 [facility] Cannabinoids [Presence] in U rine by Screen methodOrdered By: Ari Aguero on 03-05-2022 Cannabinoids Screen Ql (U) Negative Negative [facility] Comment on above: These are unconfirme d results and should not be used for legal purposes. Drug Cut-Off Concentration: AMPH 1000 ng/mL JANELL 200 ng/mL JAMES 200 ng/mL COCM 300 ng/mL OP 300 ng/mL PCP 25 ng/mL THC 20 ng/mL Color Auto (U)Ordered By: Robin red More on 03-05-2022 Color (U) Yellow Yellow [facility] Creatinine and Glomerular fi ltration rate.predicted panel (S/P/Bld)Ordered By: Ari Aguero on 03-05-2022 Creatinine [Mass/Vol] 0.50 mg/dL 0.44-1.03 [facility] Eosinophils Auto (Bld) [#/Vo l]Ordered By: Ari Aguero on 03-05-2022 Eosinophils (Bld) [#/Vol] 0.1 10*3/uL 0.0-0.45 [facility] Eosinophils/100 WBC Auto (Bl d)Ordered By: Ari Aguero on 03-05-2022 Eosinophils/100 WBC (Bld) 1.1 % . [facility] Erythrocyte distribution wid th Auto (RBC) [Ratio]Ordered By: Ari Aguero on 03-05-2022 Erythrocyte distribution width (RBC) [Ratio] 13.0 % 11.9-15.3 [facility] Estimated glomerular filtrat ion rate (GFR) non- AmericanOrdered By: Ari Aguero on 03-05-2022 GFR/1.73 sq M.predicted among non-blacks MDRD (S/P/Bld) [Vol rate/Area] > 60 mL/Min [facility] Globulin Calc (S) [Mass/Vol] Ordered By: Ari Aguero on 03-05-2022 Globulin (S) [Mass/Vol] 4.2 g/dL [facility] HCG ( test) IA.rapi d Ql (U)Ordered By: Ari Aguero on 03-05-2022 HCG ( test) Ql (U) Negative [facility] Hematocrit Auto (Bld) [Volum e fraction]Ordered By: Ari Aguero on 03-05-2022 Hematocrit (Bld) [Volume fraction] 42.0 % 34.0-46.4 [facility] Hemoglobin [Mass/volume] in BloodOrdered By: Ari Aguero on 03-05-2022 Hemoglobin (Bld) [Mass/Vol] 14.0 g/dL 11.8-15.4 [facility] Ketones Auto test strip (U) [Mass/Vol]Ordered By: Ari Aguero on 03-05-2022 Ketones (U) [Mass/Vol] Negative Negative [facility] Laboratory - Drug toxicology Ordered By: Ari Aguero on 03-05-2022 Opiates Ql (U) Negative Negative [facility] Leukocytes [#/volume] correc jose for nucleated erythrocytes in Blood by Automated counOrdered By: Ari Aguero on 03-05-2022 WBC corrected for nucl RBC Auto (Bld) [#/Vol] 11.6 10*3/uL 3.8-11.6 [facility] Lymphocytes Auto (Bld) [#/Vo l]Ordered By: Ari Aguero on 03-05-2022 Lymphocytes (Bld) [#/Vol] 3.2 10*3/uL 1.00-4.8 [facility] Lymphocytes/100 WBC Auto (Bl d)Ordered By: Ari Aguero on 03-05-2022 Lymphocytes/100 WBC (Bld) 27.3 % . [facility] MCH Auto (RBC) [Entitic mass ]Ordered By: Ari Aguero on 03-05-2022 MCH (RBC) [Entitic mass] 31.0 pg 24.7-34.3 [facility] MCHC Auto (RBC) [Mass/Vol]Or dered By: Ari Aguero on 03-05-2022 MCHC (RBC) [Mass/Vol] 33.3 g/dL 32.0-35.0 [facility] MCV Auto (RBC) [Entitic vol] Ordered By: Ari Aguero on 03-05-2022 MCV (RBC) [Entitic vol] 93.1 fL 80-100 [facility] [place] Monocyte distribution width [Entitic volume] in Blood by AutomatedOrdered By: Ari Aguero on 03-05-2022 Monocyte distribution width Auto (Bld) [Entitic vol] 19.04 % 0.00-20.00 [facility] [place] Monocytes Auto (Bld) [#/Vol] Ordered By: Ari Aguero on 03-05-2022 Monocytes (Bld) [#/Vol] 0.7 10*3/uL 0.0-0.8 [facility] [place] Monocytes/100 WBC Auto (Bld) Ordered By: Ari Aguero on 03-05-2022 Monocytes/100 WBC (Bld) 5.9 % . [facility] [place] Neutrophils Auto (Bld) [#/Vo l]Ordered By: Ari Aguero on 03-05-2022 Neutrophils (Bld) [#/Vol] 7.6 10*3/uL 1.8-7.7 [facility] [place] Neutrophils/100 WBC Auto (Bl d)Ordered By: Ari Aguero on 03-05-2022 Neutrophils/100 WBC (Bld) 65.1 % . [facility] [place] Nitrite Test strip Ql (U)Ord ered By: Ari Aguero on 03-05-2022 Nitrite Ql (U) Negative Negative [facility] [place] No Panel InformationOrdered By: Ari Aguero on 03-05-2022 Estimated GFR () > 60 mL/Min [facility] [place] Comment on above: GFR estimated refere nce range: According to KDOQI guidelines, <60 ml/min/1.73m2 is sufficient to diagnose a patient with chronic kidney disease. Pharmacy Creatinine Clearance (Chem 158.18 [facility] [place] Nucleated erythrocytes [Pres ence] in Blood by Automated countOrdered By: Ari Aguero on 03-05-2022 Nucleated RBC Auto Ql (Bld) 0.1 /100{WBC} 0-0.5 [facility] [place] Phencyclidine Screen Ql (U)O rdered By: Ari Aguero on 03-05-2022 Phencyclidine Ql (U) Negative Negative [facility] Platelet mean volume Auto (B ld) [Entitic vol]Ordered By: Ari Aguero on 03-05-2022 Platelet mean volume (Bld) [Entitic vol] 7.7 fL 6.3-10.7 [facility] [place] Platelets Auto (Bld) [#/Vol] Ordered By: Ari Aguero on 03-05-2022 Platelets (Bld) [#/Vol] 277 10*3/uL 150-450 [facility] [place] Protein Auto test strip (U) [Mass/Vol]Ordered By: Ari Aguero on 01-23-2023 Protein (U) [Mass/Vol] Negative Negative [facility] [place] Protein [Mass/volume] in Ser um or PlasmaOrdered By: Ari Aguero on 03-05-2022 Protein [Mass/Vol] 7.5 g/dL 6.1-7.9 [facility] RBC Auto (Bld) [#/Vol]Ordere d By: Ari Aguero on 03-05-2022 RBC (Bld) [#/Vol] 4.51 10*6/uL 3.60-5.00 [facility] Serum or plasma alanine urbina otransferase measurement without P-5'-P (enzymatic activiOrdered By: Ari Aguero on 03-05-2022 ALT No additional P-5'-P [Catalytic activity/Vol] 106 U/L 10-60 [facility] [place] Serum or plasma albumin/glob ulin mass ratioOrdered By: Ari Aguero on 03-05-2022 Albumin/Globulin [Mass ratio] 0.8 {ratio} [facility] [place] Serum or plasma alkaline maya sphatase measurement (enzymatic activity/volume)Ordered By: Ari Aguero on 03-05-2022 ALP [Catalytic activity/Vol] 94 U/L 32-92 [facility] [place] Serum or plasma anion gap de terminationOrdered By: Ari Aguero on 03-05-2022 Anion gap [Moles/Vol] 14.1 mmol/L 6.0-15.0 [facility] Serum or plasma aspartate am inotransferase measurement (enzymatic activity/volume)Ordered By: Ari Aguero on 03-05-2022 AST [Catalytic activity/Vol] 146 U/L 10-42 [facility] [place] Serum or plasma calcium judi urement (mass/volume)Ordered By: Ari Aguero on 03-05-2022 Calcium [Mass/Vol] 8.9 mg/dL 8.2-10.2 [facility] Serum or plasma chloride nataliia surement (moles/volume)Ordered By: Ari Aguero on 03-05-2022 Chloride [Moles/Vol] 105 mmol/L 95-114 [facility] Serum or plasma ethanol judi urement (mass/volume)Ordered By: Ari Aguero on 03-05-2022 Ethanol [Mass/Vol] 277 mg/dL [facility] Ethanol [Mass/Vol] 0.277 % [facility] Serum or plasma glucose judi urement (mass/volume)Ordered By: Ari Aguero on 03-05-2022 Glucose [Mass/Vol] 83 mg/dL 70-100 [facility] Comment on above: ADA recommended refe rence rangeRandom Glucose Reference Range is dependent on time and content of last meal. Glucose of more than 200 mg/dL in a nonstressed, ambulatory subject supports the diagnosis of Diabetes Mellitus. Serum or plasma potassium me asurement (moles/volume)Ordered By: Ari Aguero on 03-05-2022 Potassium [Moles/Vol] 3.7 mmol/L 3.5-5.1 [facility] Serum or plasma sodium measu rement (moles/volume)Ordered By: Ari Aguero on 03-05-2022 Sodium [Moles/Vol] 138 mmol/L 136-146 [facility] Serum or plasma total biliru bin measurement (mass/volume)Ordered By: Ari Aguero on 03-05-2022 Bilirubin [Mass/Vol] 0.4 mg/dL 0.3-1.2 [facility] Serum or plasma total carbon dioxide measurement (moles/volume)Ordered By: Ari Aguero on 03-05-2022 CO2 [Moles/Vol] 22.6 mmol/L 22.0-30.0 [facility] Serum or plasma urea nitroge n measurement (mass/volume)Ordered By: Ari Aguero on 03-05-2022 Urea nitrogen [Mass/Vol] 3 mg/dL 11-03 [facility] [place] Specific gravity Auto test s trip (U) [Rel density]Ordered By: Ari Aguero on 03-05-2022 Specific gravity (U) [Rel density] 1.008 1.001-1.030 [facility] [place] Urine clarity by refractomet ry automatedOrdered By: Ari Aguero on 03-05-2022 Clarity Refractometry automated (U) Clear Clear [facility] [place] Urine cocaine detectionOrder ed By: Ari Aguero on 03-05-2022 Cocaine Ql (U) Positive Negative [facility] [place] Urine glucose measurement by automated test strip (mass/volume)Ordered By: Ari Aguero on 03-05-2022 Glucose Auto test strip (U) [Mass/Vol] Normal mg/dL Normal [facility] [place] Urine hemoglobin detection b y automated test stripOrdered By: Ari Aguero on 03-05-2022 Hemoglobin Auto test strip Ql (U) Negative Negative [facility] [place] Urine leukocyte esterase det ection by automated test stripOrdered By: Ari Aguero on 03-05-2022 Leukocyte esterase Auto test strip Ql (U) Negative Negative [facility] [place] Urobilinogen Auto test strip (U) [Mass/Vol]Ordered By: Ari Aguero on 03-05-2022 Urobilinogen (U) [Mass/Vol] Normal mg/dL Normal [facility] [place] WBC Auto (Bld) [#/Vol]Ordere d By: Ari Aguero on 03-05-2022 WBC (Bld) [#/Vol] 11.6 10*3/uL 3.8-11.6 [facility] pH Auto test strip (U)Ordere d By: Ari Aguero on 03-05-2022 pH (U) 5.5 [pH] 5.0-9.0 [facility] [place] Amphetamine Screen Ql (U)Ord ered By: Declan Marina on 02-20-2022 Amphetamines Ql (U) Negative Negative [facility] Barbiturates [Presence] in U rineOrdered By: Declan Marina on 02-20-2022 Barbiturates Ql (U) Negative Negative [facility] Basophils Auto (Bld) [#/Vol] Ordered By: Declan Marina on 02-20-2022 Basophils (Bld) [#/Vol] 0.1 10*3/uL 0.0-0.2 [facility] [place] Basophils/100 WBC Auto (Bld) Ordered By: Declan Marina on 02-20-2022 Basophils/100 WBC (Bld) 1.4 % . [facility] [place] Benzodiazepines [Presence] i n UrineOrdered By: Declan Marina on 02-20-2022 Benzodiazepines Ql (U) Negative Negative [facility] [place] Bilirubin Test strip Ql (U)O rdered By: Declan Marina on 02-20-2022 Bilirubin Ql (U) Negative Negative [facility] Body fluid albumin measureme nt (mass/volume)Ordered By: Declan Marina on 02-20-2022 Albumin (Body fld) [Mass/Vol] 3.8 g/dL 3.2-5.5 [facility] [place] Cannabinoids [Presence] in U rine by Screen methodOrdered By: Declan Marina on 02-20-2022 Cannabinoids Screen Ql (U) Negative Negative [facility] [place] Comment on above: These are unconfirme d results and should not be used for legal purposes. Drug Cut-Off Concentration: AMPH 1000 ng/mL JANELL 200 ng/mL JAMES 200 ng/mL COCM 300 ng/mL OP 300 ng/mL PCP 25 ng/mL THC 20 ng/mL Color Auto (U)Ordered By: Akiko Marina on 02-20-2022 Color (U) Yellow Yellow [facility] [place] Creatinine and Glomerular fi ltration rate.predicted panel (S/P/Bld)Ordered By: Declan Marina on 02-20-2022 Creatinine [Mass/Vol] 0.57 mg/dL 0.44-1.03 [facility] Eosinophils Auto (Bld) [#/Vo l]Ordered By: Declan Marina on 02-20-2022 Eosinophils (Bld) [#/Vol] 0.1 10*3/uL 0.0-0.45 [facility] [place] Eosinophils/100 WBC Auto (Bl d)Ordered By: Declan Marina on 02-20-2022 Eosinophils/100 WBC (Bld) 0.5 % . [facility] [place] Erythrocyte distribution wid th Auto (RBC) [Ratio]Ordered By: Declan Marina on 02-20-2022 Erythrocyte distribution width (RBC) [Ratio] 12.8 % 11.9-15.3 [facility] [place] Estimated glomerular filtrat ion rate (GFR) non- AmericanOrdered By: Declan Marina on 02-20-2022 GFR/1.73 sq M.predicted among non-blacks MDRD (S/P/Bld) [Vol rate/Area] > 60 mL/Min [facility] [place] Globulin Calc (S) [Mass/Vol] Ordered By: Declan Marina on 02-20-2022 Globulin (S) [Mass/Vol] 3.3 g/dL [facility] [place] HCG ( test) IA.rapi d Ql (U)Ordered By: Declan Marina on 02-20-2022 HCG ( test) Ql (U) Negative [facility] [place] Hematocrit Auto (Bld) [Volum e fraction]Ordered By: Declan Marina on 02-20-2022 Hematocrit (Bld) [Volume fraction] 44.9 % 34.0-46.4 [facility] [place] Hemoglobin [Mass/volume] in BloodOrdered By: Declan Marina on 02-20-2022 Hemoglobin (Bld) [Mass/Vol] 15.2 g/dL 11.8-15.4 [facility] [place] Ketones Auto test strip (U) [Mass/Vol]Ordered By: Declan Marina on 02-20-2022 Ketones (U) [Mass/Vol] Negative Negative [facility] [place] Laboratory - Drug toxicology Ordered By: Declan Marina on 02-20-2022 Opiates Ql (U) Negative Negative [facility] [place] Leukocytes [#/volume] correc jose for nucleated erythrocytes in Blood by Automated counOrdered By: Declan Marina on 02-20-2022 WBC corrected for nucl RBC Auto (Bld) [#/Vol] 9.8 10*3/uL 3.8-11.6 [facility] [place] Lymphocytes Auto (Bld) [#/Vo l]Ordered By: Declan Marina on 02-20-2022 Lymphocytes (Bld) [#/Vol] 3.0 10*3/uL 1.00-4.8 [facility] [place] Lymphocytes/100 WBC Auto (Bl d)Ordered By: Declan Marina on 02-20-2022 Lymphocytes/100 WBC (Bld) 30.9 % . [facility] [place] MCH Auto (RBC) [Entitic mass ]Ordered By: Declan Marina on 02-20-2022 MCH (RBC) [Entitic mass] 31.6 pg 24.7-34.3 [facility] [place] MCHC Auto (RBC) [Mass/Vol]Or dered By: Declan Marina on 02-20-2022 MCHC (RBC) [Mass/Vol] 33.9 g/dL 32.0-35.0 [facility] MCV Auto (RBC) [Entitic vol] Ordered By: Declan Marina on 02-20-2022 MCV (RBC) [Entitic vol] 93.1 fL 80-100 [facility] [place] Monocyte distribution width [Entitic volume] in Blood by AutomatedOrdered By: Declan Marina on 02-20-2022 Monocyte distribution width Auto (Bld) [Entitic vol] 15.19 % 0.00-20.00 [facility] [place] Monocytes Auto (Bld) [#/Vol] Ordered By: Delcan Marina on 02-20-2022 Monocytes (Bld) [#/Vol] 0.4 10*3/uL 0.0-0.8 [facility] [place] Monocytes/100 WBC Auto (Bld) Ordered By: Declan Marina on 02-20-2022 Monocytes/100 WBC (Bld) 3.7 % . [facility] [place] Neutrophils Auto (Bld) [#/Vo l]Ordered By: Declan Marina on 02-20-2022 Neutrophils (Bld) [#/Vol] 6.2 10*3/uL 1.8-7.7 [facility] [place] Neutrophils/100 WBC Auto (Bl d)Ordered By: Declan Marina on 02-20-2022 Neutrophils/100 WBC (Bld) 63.5 % . [facility] [place] Nitrite Test strip Ql (U)Ord ered By: Declan Marina on 02-20-2022 Nitrite Ql (U) Negative Negative [facility] [place] No Panel InformationOrdered By: Declan Marina on 02-20-2022 Estimated GFR () > 60 mL/Min [facility] [place] Comment on above: GFR estimated refere nce range: According to KDOQI guidelines, <60 ml/min/1.73m2 is sufficient to diagnose a patient with chronic kidney disease. Pharmacy Creatinine Clearance (Chem 140.39 [facility] [place] Nucleated erythrocytes [Pres ence] in Blood by Automated countOrdered By: Declan Marina on 02-20-2022 Nucleated RBC Auto Ql (Bld) 0.2 /100{WBC} 0-0.5 [facility] [place] Phencyclidine Screen Ql (U)O rdered By: Declan Marina on 02-20-2022 Phencyclidine Ql (U) Negative Negative [facility] Platelet mean volume Auto (B ld) [Entitic vol]Ordered By: Declan Marina on 02-20-2022 Platelet mean volume (Bld) [Entitic vol] 7.8 fL 6.3-10.7 [facility] [place] Platelets Auto (Bld) [#/Vol] Ordered By: Declan Marina on 02-20-2022 Platelets (Bld) [#/Vol] 219 10*3/uL 150-450 [facility] [place] Protein Auto test strip (U) [Mass/Vol]Ordered By: Declan Marina on 02-20-2022 Protein (U) [Mass/Vol] Negative Negative [facility] [place] Protein [Mass/volume] in Ser um or PlasmaOrdered By: Declan Marina on 02-20-2022 Protein [Mass/Vol] 7.1 g/dL 6.1-7.9 [facility] RBC Auto (Bld) [#/Vol]Ordere d By: Declan Marina on 02-20-2022 RBC (Bld) [#/Vol] 4.82 10*6/uL 3.60-5.00 [facility] Serum or plasma alanine urbina otransferase measurement without P-5'-P (enzymatic activiOrdered By: Declan Marina on 02-20-2022 ALT No additional P-5'-P [Catalytic activity/Vol] 141 U/L 1060 [facility] [place] Serum or plasma albumin/glob ulin mass ratioOrdered By: Declan Marina on 02-20-2022 Albumin/Globulin [Mass ratio] 1.2 {ratio} [facility] [place] Serum or plasma alkaline maya sphatase measurement (enzymatic activity/volume)Ordered By: Declan Marina on 02-20-2022 ALP [Catalytic activity/Vol] 84 U/L 32-92 [facility] [place] Serum or plasma anion gap de terminationOrdered By: Declan Marina on 02-20-2022 Anion gap [Moles/Vol] 16.0 mmol/L 6.0-15.0 [facility] Serum or plasma aspartate am inotransferase measurement (enzymatic activity/volume)Ordered By: Declan Marina on 02-20-2022 AST [Catalytic activity/Vol] 169 U/L 1042 [facility] [place] Serum or plasma calcium judi urement (mass/volume)Ordered By: Declan Marina on 02-20-2022 Calcium [Mass/Vol] 8.5 mg/dL 8.2-10.2 [facility] Serum or plasma chloride nataliia surement (moles/volume)Ordered By: Declan Marina on 02-20-2022 Chloride [Moles/Vol] 103 mmol/L 95-114 [facility] Serum or plasma ethanol judi urement (mass/volume)Ordered By: Declan Marina on 02-20-2022 Ethanol [Mass/Vol] 347 mg/dL [facility] Ethanol [Mass/Vol] 0.347 % [facility] Serum or plasma glucose judi urement (mass/volume)Ordered By: Declan Marina on 02-20-2022 Glucose [Mass/Vol] 76 mg/dL 70-100 [facility] Comment on above: ADA recommended refe rence rangeRandom Glucose Reference Range is dependent on time and content of last meal. Glucose of more than 200 mg/dL in a nonstressed, ambulatory subject supports the diagnosis of Diabetes Mellitus. Serum or plasma potassium me asurement (moles/volume)Ordered By: Declan Marina on 02-20-2022 Potassium [Moles/Vol] 3.6 mmol/L 3.5-5.1 [facility] Serum or plasma sodium measu rement (moles/volume)Ordered By: Declan Marina on 02-20-2022 Sodium [Moles/Vol] 140 mmol/L 136-146 [facility] Serum or plasma total biliru bin measurement (mass/volume)Ordered By: Declan Marina on 02-20-2022 Bilirubin [Mass/Vol] 0.5 mg/dL 0.3-1.2 [facility] Serum or plasma total carbon dioxide measurement (moles/volume)Ordered By: Declan Marina on 02-20-2022 CO2 [Moles/Vol] 24.6 mmol/L 22.0-30.0 [facility] Serum or plasma urea nitroge n measurement (mass/volume)Ordered By: Declan Marina on 02-20-2022 Urea nitrogen [Mass/Vol] 2 mg/dL 9-23 [facility] [place] Specific gravity Auto test s trip (U) [Rel density]Ordered By: Declan Marina on 02-20-2022 Specific gravity (U) [Rel density] 1.007 1.001-1.030 [facility] [place] Urine clarity by refractomet ry automatedOrdered By: Declan Marina on 02-20-2022 Clarity Refractometry automated (U) Clear Clear [facility] [place] Urine cocaine detectionOrder ed By: Declan Marina on 02-20-2022 Cocaine Ql (U) Negative Negative [facility] [place] Urine glucose measurement by automated test strip (mass/volume)Ordered By: Declan Marina on 02-20-2022 Glucose Auto test strip (U) [Mass/Vol] Normal mg/dL Normal [facility] [place] Urine hemoglobin detection b y automated test stripOrdered By: Declan Marina on 02-20-2022 Hemoglobin Auto test strip Ql (U) Negative Negative [facility] [place] Urine leukocyte esterase det ection by automated test stripOrdered By: Declan Marina on 02-20-2022 Leukocyte esterase Auto test strip Ql (U) Negative Negative [facility] [place] Urobilinogen Auto test strip (U) [Mass/Vol]Ordered By: Declan Marina on 02-20-2022 Urobilinogen (U) [Mass/Vol] Normal mg/dL Normal [facility] [place] WBC Auto (Bld) [#/Vol]Ordere d By: Declan Marina on 02-20-2022 WBC (Bld) [#/Vol] 9.8 10*3/uL 3.8-11.6 [facility] pH Auto test strip (U)Ordere d By: Declan Marina on 02-20-2022 pH (U) 6.0 [pH] 5.0-9.0 [facility] [place] CHEMISTRYOrdered By: [place] [facility] on 07-26-2021 Albumin [Mass/Vol] 3.8 g/dL Normal 3.3 - 5.0 gm/dL [facility] [place] Remisol Albumin/Globulin [Mass ratio] 1.1 {ratio} Normal 1.1 - 2.2 [facility] ALP [Catalytic activity/Vol] 60 [iU]/d Normal 21 - 98 Int._Unit/L [facility] ALT No additional P-5'-P [Catalytic activity/Vol] 224 [iU]/d High 6 - 46 Int._Unit/L [facility] Remisol Anion gap [Moles/Vol] 14 mmol/L Normal 6 - 16 mEq/L [facility] Remisol AST [Catalytic activity/Vol] 291 [iU]/d High 5 - 43 Int._Unit/L [facility] Bilirubin [Mass/Vol] 0.4 mg/dL Normal 0.0 - 1 .1 mg/dL [facility] Bilirubin.direct [Mass/Vol] 0.1 mg/dL Normal 0.1 - 0.4 mg/dL [facility] Remisol Bilirubin.indirect [Mass or moles/Vol] 0.3 mg/dL Normal 0.1 - 0.9 mg/dL [facility] [...] rate/Area] mL/min/1.73 m2 Normal >=59mL/min/1 .73 m2 [facility] [place] Chem S GFR/1.73 sq M.predicted among non-blacks MDRD (S/P/Bld) [Vol rate/Area] mL/min/1.73 m2 Normal >=59mL/min/1 .73 m2 [facility] [place] Chem S Globulin (S) [Mass/Vol] 3.5 g/dL Normal 1.4 - 4.0 gm/dL [facility] Glucose [Mass/Vol] 103 mg/dL Normal 55 - 199 mg/dL [facility] Lipase [Catalytic activity/Vol] 28 U/L Normal 13 - 58 unit/L [facility] Potassium [Moles/Vol] 3.9 mmol/L Normal 3.5 - 5.3 mmol/L [facility] Protein [Mass/Vol] 7.3 g/dL Normal 6.0 - 7.8 gm/dL [facility] Sodium [Moles/Vol] 136 mmol/L Normal 135 - 145 mmol/L [facility] Urea nitrogen [Mass/Vol] 7 mg/dL Normal 5 - 21 mg/dL [facility] Urea nitrogen/Creatinine [Mass ratio] 12 mg/mg Normal 10 - 20 [facility] HEMATOLOGYOrdered By: SYSTEM SYSTEM on 06-15-2022 Basophils/100 WBC (Bld) 0.5 % Normal 0.0 [...] hCG Ql Negative (07/26/21 6:47 PM) Normal [facility] [place] Man Sero URINALYSISOrdered By: Arlene Contreras on [...] PM) Normal Negative [facility] UA Auto SS Ector.plasma/Lithiu m.RBC (Bld) [Mass ratio] 0-3 /HPF Normal 0-3/HPF [facility] UA Auto SS Nitrite Ql (U) Negative (07/26/21 8:33 PM) Normal Negative [facility] UA Auto SS pH (U) 6.0 *NA* (07/26/21 8:33 PM) Invalid Interpretation Code 5.0 - 9.0 [facility] [place] UA Auto SS Protein (U) [Mass/Vol] Negative (07/26/21 8:33 PM) Normal Negative [facility] [place] UA Auto SS Specific gravity (U) [Rel density] 1.020 *NA* (07/26/21 8:33 PM) Invalid Interpretation Code 1.005 - 1.030 [facility] [place] UA Auto SS UA Spec Desc Clean Catch (07/26/21 8:33 PM) Normal [facility] [place] UA Auto SS Urobilinogen Qn (U) [id number] {Surinder'U}/dL Normal 0.0 - 1.0 EU/dL [facility] [place] UA Auto SS WBC Auto Ql (U) Negative (07/26/21 8:33 PM) Normal Negative [facility] [place] UA Auto SS WBC LM.HPF (Urine sed) [#/Area] 0-5 /HPF Normal 0-5/HPF [facility] [place] UA Auto SS CBC With Platelet and Differ entialon 05-31-2021 Abs Imm Granulocytes 0.01 E9/L Normal [facility] Absolute Basophils 0.02 E9/L Normal 0.00-0.20 [facility] Absolute Eosinophils 0.06 E9/L Normal 0.05-0.50 [facility] Absolute Lymphocytes 2.46 E9/L Normal 1.50-4.00 [facility] Absolute Monocytes 0.52 E9/L Normal 0.10-0.95 [facility] Absolute Neutrophils 3.85 E9/L Normal 1.80-7.30 [facility] Basophils/100 WBC (Bld) 0.3 % Normal 0.0-2.0 [facility] Eosinophils/100 WBC (Bld) 0.9 % Normal 0.0-6.0 [facility] Hematocrit (Bld) [Volume fraction] 42.1 % Normal 34.0-48.0 [facility] Hemoglobin (Bld) [Mass/Vol] 14.2 g/dL Normal 11.5-15.5 [facility] Imm Granulocytes 0.1 % Normal 0.0-5.0 [facility] Lymphocytes/100 WBC (Bld) 35.5 % Normal 20.0-42.0 [facility] MCH (RBC) [Entitic mass] 31.2 pg Normal 26.0-35.0 [facility] MCHC 33.7 % Normal 32.0-34.5 [facility] MCV (RBC) [Entitic vol] 92.5 fL Normal 80.0-99.9 [facility] Monocytes/100 WBC (Bld) 7.5 % Normal 2.0-12.0 [facility] Neutrophils/100 WBC (Bld) 55.7 % Normal 43.0-80.0 [facility] Platelet Count 240 E9/L Normal 130-450 [facility] Platelet mean volume (Bld) [Entitic vol] 10.1 fL Normal 7.0-12.0 [facility] RBC 4.55 E12/L Normal 3.50-5.50 [facility] RDW 12.3 fL Normal 11.5-15.0 [facility] WBC 6.9 E9/L Normal 4.5-11.5 [facility] CBC with Auto Differentialon 05-31-2021 Basophils (Bld) [#/Vol] 0.02 10*3/uL [facility] Basophils/100 WBC (Bld) 0.3 % 0.0 - 2.0 % [facility] Eosinophils Absolute 0.06 [facility] Eosinophils/100 WBC (Bld) 0.9 % 0.0 - 6.0 % [facility] Hematocrit (Bld) [Volume fraction] 42.1 % 34.0 - 48.0 % [facility] Hemoglobin.gastrointe stinal spec 1 Ql (Stl) 14.2 g/dL 11.5 - 15.5 g/dL [facility] Immature Granulocytes # 0.01 E9/L [facility] Immature granulocytes/100 WBC (Bld) 0.1 % 0.0 - 5.0 % [facility] Lymphocytes Absolute 2.46 [facility] Lymphocytes/100 WBC (Bld) 35.5 % 20.0 - 42.0 % [facility] MCH (RBC) [Entitic mass] 31.2 pg 26.0 - 35.0 pg [facility] MCHC (RBC) [Mass/Vol] 33.7 % 32.0 - 34.5 % [facility] MCV (RBC) [Entitic vol] 92.5 fL 80.0 - 99.9 fL [facility] Monocytes Absolute 0.52 [facility] Monocytes/100 WBC (Bld) 7.5 % 2.0 - 12.0 % [facility] Neutrophils Absolute 3.85 [facility] Neutrophils/100 WBC (Bld) 55.7 % 43.0 - 80.0 % [facility] Platelet distribution width (Bld) [Ratio] 12.3 fL 11.5 - 15.0 fL [facility] Platelet mean volume (Bld) [Entitic vol] 10.1 fL 7.0 - 12.0 fL [facility] Platelets (Bld) [#/Vol] 240 10*3/uL [facility] RBC (Bld) [#/Vol] 4.55 10*6/uL [facility] WBC (Bld) [#/Vol] 6.9 10*3/uL [facility] Comprehensive Metabolic Pane mary beth 05-31-2021 Albumin [Mass/Vol] 3.9 g/dL Normal 3.5-5.2 [facility] ALP [Catalytic activity/Vol] 85 U/L Normal 35-104 [facility] ALT [Catalytic activity/Vol] 53 U/L High 0-32 [facility] Anion gap [Moles/Vol] 9 mmol/L Normal 7-16 [facility] AST [Catalytic activity/Vol] 70 U/L High 0-31 [facility] Bilirubin [Mass/Vol] 0.2 mg/dL Normal 0.0-1.2 [facility] Calcium [Mass/Vol] 9.0 mg/dL Normal 8.6-10.2 [facility] Chloride [Moles/Vol] 104 mmol/L Normal 98-107 [facility] CO2 [Moles/Vol] 23 mmol/L Normal 22-29 [facility] Creatinine [Mass/Vol] 0.5 mg/dL Normal 0.5-1.0 [facility] GFR Calculated >60 Normal >=60 [facility] Comment on above: Result Comment: Branch Log[employer] Supervisor justin Kidney Disease: less than 60 ml/min/1.73 sq.m. Kidney Failure: less than 15 ml/min/1.73 sq.m. Results valid for patients 18 years and older. GFR/1.73 sq M.predicted among blacks MDRD (S/P/Bld) [Vol rate/Area] mL/min/{1.73_m2} Normal [facility] Glucose [Mass/Vol] 91 mg/dL Normal 74-99 [facility] Potassium [Moles/Vol] 4.8 mmol/L Normal 3.5-5.0 [facility] Protein [Mass/Vol] 7.4 g/dL Normal 6.4-8.3 [facility] Sodium [Moles/Vol] 136 mmol/L Normal 132-146 [facility] Urea nitrogen [Mass/Vol] 6 mg/dL Normal 6-20 [facility] Albumin [Mass/Vol] 3.9 g/dL 3.5 - 5.2 g/dL [facility] ALP (Bld) [Catalytic activity/Vol] 85 U/L 35 - 104 U/L [facility] ALT [Catalytic activity/Vol] 53 U/L High 0 - 32 U/L [facility] Anion gap [Moles/Vol] 9 mmol/L 7 - 16 mmol/L [facility] AST [Catalytic activity/Vol] 70 U/L High 0 - 31 U/L [facility] Bilirubin [Mass/Vol] 0.2 mg/dL 0.0 - 1 .2 mg/dL [facility] Calcium [Mass/Vol] 9.0 mg/dL 8.6 - 10. 2 mg/dL [facility] Chloride [Moles/Vol] 104 mmol/L 98 - 10 7 mmol/L [facility] CO2 [Moles/Vol] 23 mmol/L 22 - 29 mmol/L [facility] Creatinine [Mass/Vol] 0.5 mg/dL 0.5 - 1.0 mg/dL [facility] Free PSA/Total PSA [Mass fraction] 7.4 g/dL 6.4 - 8.3 g/dL [facility] GFR >60 [facility] GFR Non- >60 >=60 mL/min/1.73 [facility] Comment on above: Chronic Kidney Disea se: less than 60 ml/min/1.73 sq.m. Kidney Failure: less than 15 ml/min/1.73 sq.m. Results valid for patients 18 years and older. Glucose [Mass/Vol] 91 mg/dL 74 - 99 mg/dL [facility] Interpretation and review of laboratory results Abnormal [facility] Potassium [Moles/Vol] 4.8 mmol/L 3.5 - 5.0 mmol/L [facility] Sodium [Moles/Vol] 136 mmol/L 132 - 146 mmol/L [facility] Urea nitrogen (BldV) [Mass/Vol] 6 mg/dL 6 - 20 mg/dL [facility] Lipid Panel Fastingon 2021 Cholesterol [Mass/Vol] 123 mg/dL Normal 0-199 [facility] HDL Cholesterol Fasting 30 mg/dL Normal >40 [facility] LDL Cholesterol (Calculated) Fasting 63 mg/dL Normal 0-99 [facility] Triglycerides Fasting 149 mg/dL Normal 0-149 [facility] VLDL Cholesterol (Calculated) Fasting 30 mg/dL Normal [facility] Lipid, Fastingon 05-31-2021 Cholesterol [Mass/Vol] 123 mg/dL 0 - 199 mg/dL [facility] Cholesterol in HDL [Mass/Vol] 30 mg/dL >40 [facility] Cholesterol in LDL [Mass/Vol] 63 mg/dL 0 - 99 mg/dL [facility] Cholesterol in VLDL [Mass/Vol] 30 mg/dL [facility] Triglyceride, Fasting 149 mg/dL 0 - 14 9 mg/dL [facility] Magnesiumon 05-31-2021 Magnesium [Mass/Vol] 1.8 mg/dL Normal 1.6-2.6 [facility] Magnesium [Mass/Vol] 1.8 mg/dL 1.6 - 2 .6 mg/dL [facility] No Panel Informationon 05-[address] [facility] T4, Freeon 05-31-2021 Free T4 [Mass/Vol] 1.31 ng/dL 0.93 - 1. 70 ng/dL [facility] TSHon 05-31-2021 Interpretation and review of laboratory results Abnormal [facility] TSH Qn 0.141 m[IU]/L Low [facility] h [facility] TSH w/out Reflexon TSH w/out Reflex 0.141 uIU/mL Low 0.270-4.200 [facility] Thyroxine Freeon 05-31-2021 Thyroxine Free 1.31 ng/dL Normal 0.93-1.70 [facility] Vitamin D 25 Hydroxyon 05-31 Vit D, 25-Hydroxy 33 ng/mL 30 - 100 ng/mL [facility] Comment on above: <20 ng/mL........... ..Deficient 20-30 ng/mL...........Insufficient 30-100 ng/mL..........Sufficient >100 ng/mL............Toxic [facility] Vitamin D, 25-hydroxyon 05-13 Vitamin D, 25-hydroxy 33 ng/mL Normal 30-100 [facility] Comment on above: Result Comment: <20 ng/mL.............Deficient 20-30 ng/mL...........Insufficient 30-100 ng/mL..........Sufficient >100 ng/mL............Toxic Basic Metab w/rfx MGon 05-03 (cont.) Normal [facility] Comment on above: Result Comment: Aver age GFR for 20-29 years old: 116 mL/min/1.73sq m Chronic Kidney Disease: <60 mL/min/1.73sq m Kidney failure: <15 mL/min/1.73sq m eGFR calculated using average adult body mass. Additional eGFR calculator available at: http://www.[employer].com/multiple_crcl_2012.htm Performed By: #### T ROPI, HCG, BMPX, CDP #### [facility] [address] [place] [id number] Preparer [employer] Repairs: Clark Segovia MD Anion gap [Moles/Vol] 12 mmol/L Normal 9-17 [facility] Comment on above: Performed By: #### T ROPI, HCG, BMPX, CDP #### [facility] [address] [place] [address] Preparer Samples [employer] Rep[employer]: Clark Segovia MD Calcium [Mass/Vol] 9.2 mg/dL Normal 8.6-10.4 [facility] Comment on above: Performed By: #### T ROPI, HCG, BMPX, CDP #### [address] [address] [employer]: Clark Segovia MD Chloride [Moles/Vol] 102 mmol/L Normal 98-107 [facility] Comment on above: Performed By: #### T ROPI, HCG, BMPX, CDP #### [facility] [address] [place] [address] Prep[employer]: Clark Segovia MD CO2 [Moles/Vol] 24 mmol/L Normal 20-31 [facility] Comment on above: Performed By: #### T ROPI, HCG, BMPX, CDP #### [facility] [address] [place] [address] [employer]: Clark Segovia MD Creatinine [Mass/Vol] 0.50 mg/dL Normal 0.50-0.90 [facility] Comment on above: Performed By: #### T ROPI, HCG, BMPX, CDP #### [facility] [address] [place] [address] Preparer [employer]: Clark Segovia MD GFR, Amer >60 Normal >60 [facility] Comment on above: Performed By: #### T ROPI, HCG, BMPX, CDP #### [facility] [address] [place] [address] Preparer [employer]: Clark Segovia MD GFR,non Amer >60 Normal >60 [facility] Comment on above: Performed By: #### T ROPI, HCG, BMPX, CDP #### [facility] [address] [place] [address] Preparer [employer]: Clark Segovia MD Glucose [Mass/Vol] 95 mg/dL Normal 70-99 [facility] Comment on above: Performed By: #### T ROPI, HCG, BMPX, CDP #### [facility] [address] [place] [address] Preparer [employer]: Clark Segovia MD Potassium [Moles/Vol] 3.8 mmol/L Normal 3.7-5.3 [facility] Comment on above: Performed By: #### T ROPI, HCG, BMPX, CDP #### [facility] [address] [place] [address] Preparer [employer]: Clark Segovia MD Sodium [Moles/Vol] 138 mmol/L Normal 135-144 [facility] Comment on above: Performed By: #### T ROPI, HCG, BMPX, CDP #### [facility] [address] [place] [address] Preparer [employer]: Clark Segovia MD Urea nitrogen [Mass/Vol] 4 mg/dL Low 6-20 [facility] Comment on above: Performed By: #### T ROPI, HCG, BMPX, CDP #### [facility] [address] [place] [address] Preparer Samples [employer] Rep[employer]: Clark Segovia MD Basic Metabolic Panel w/ Ref paresh to MGon 05-03-2021 Anion gap [Moles/Vol] 12 mmol/L 9 - 17 mmol/L [facility] Calcium [Mass/Vol] 9.2 mg/dL 8.6 - 10. 4 mg/dL [facility] Chloride [Moles/Vol] 102 mmol/L 98 - 10 7 mmol/L [facility] CO2 [Moles/Vol] 24 mmol/L 20 - 31 mmol/L [facility] Creatinine [Mass/Vol] 0.5 mg/dL 0.50 - 0.90 mg/dL [facility] GFR >60 >60 mL/min [facility] GFR Non- >60 >60 mL/min [facility] GFR/1.73 sq M.predicted MDRD (S/P/Bld) [Vol rate/Area] [facility] Comment on above: Average GFR for 20-2 9 years old: 116 mL/min/1.73sq m Chronic Kidney Disease: <60 mL/min/1.73sq m Kidney failure: <15 mL/min/1.73sq m eGFR calculated using average adult body mass. Additional eGFR calculator available at: http://www.[employer]/multiple_crcl_2011.htm Glucose [Mass/Vol] 95 mg/dL 70 - 99 mg/dL [facility] Interpretation and review of laboratory results Abnormal [facility] Potassium [Moles/Vol] 3.8 mmol/L 3.7 - 5.3 mmol/L [facility] Sodium [Moles/Vol] 138 mmol/L 135 - 144 mmol/L [facility] Urea nitrogen (BldV) [Mass/Vol] 4 mg/dL Low 6 - 20 mg/dL [facility] CBC with Auto Differentialon 05-03-2021 Absolute Eos # 0.12 [facility] th Absolute Immature Granulocyte <0.03 [facility] Absolute Lymph # 2.11 [facility] Absolute [place] # 0.86 [facility] lt Basophils (Bld) [#/Vol] 0.04 10*3/uL [facility] Basophils/100 WBC (Bld) 1 % 0 - 2 % [facility] Eosinophils/100 WBC (Bld) 1 % 1 - 4 % [facility] Hematocrit (Bld) [Volume fraction] 39.2 % 36.3 - 47.1 % [facility] Hemoglobin.gastrointe stinal spec 1 Ql (Stl) 13.6 g/dL 11.9 - 15.1 g/dL [facility] Immature granulocytes/100 WBC (Bld) 0 % 0 [facility] Lymphocytes/100 WBC (Bld) 25 % 24 - 43 % [facility] MCH (RBC) [Entitic mass] 32.4 pg 25.2 - 33.5 pg [facility] MCHC (RBC) [Mass/Vol] 34.7 g/dL 28.4 - 34.8 g/dL [facility] MCV (RBC) [Entitic vol] 93.3 fL 82.6 - 102.9 fL [facility] Monocytes/100 WBC (Bld) 10 % 3 - 12 % [facility] NRBC Automated 0.0 0.0 per 100 WBC [facility] Platelet distribution width (Bld) [Ratio] 12.4 % 11.8 - 14.4 % [facility] Platelet mean volume (Bld) [Entitic vol] 10.2 fL 8.1 - 13.5 fL [facility] Platelets (Bld) [#/Vol] 196 10*3/uL [facility] RBC (Bld) [#/Vol] 4.20 10*6/uL 3.95 - 5.1 1 m/uL [facility] Segmented neutrophils/100 WBC (Bld) 63 % 36 - 65 % [facility] Segs Absolute 5.36 [facility] [#/Vol] 8.5 10*3/uL [facility] CBC with Diffon 05-03-2021 Abs. Basophil 0.04 k/uL Normal 0.00-0.20 [facility] Comment on above: Performed By: #### T ROPI HCG, BMPX, CDP #### [facility] [place], [place] [id number] Preparer Samples And Repairs: Clark Segovia MD Abs.Imm.Granulocyte <0.03 Normal 0.00-0.30 [facility] Comment on above: Performed By: #### T ROPI, HCG, BMPX, CDP #### [facility] [place], [place] [id number] Preparer Samples [employer] Rep[employer]: Clark Segovia MD Abs.Neutrophil (Seg) 5.36 k/uL Normal 1.50-8.10 [facility] Comment on above: Performed By: #### T ROPI, HCG, BMPX, CDP #### [facility] [address] [place] [address] Preparer [employer] Rep[employer]: Clark Segovia MD Basophils/100 WBC (Bld) 1 % Normal 0-2 [facility] Comment on above: Performed By: #### T ROPI, HCG, BMPX, CDP #### [facility] [address] [place] [address] Preparer [employer]: Clark Segovia MD Eosinophils (Bld) [#/Vol] 0.12 10*3/uL Normal 0.00-0.44 [facility] Comment on above: Performed By: #### T ROPI, HCG, BMPX, CDP #### [facility] [address] [place] [address] Preparer [employer]: Clark Segovia MD Eosinophils/100 WBC (Bld) 1 % Normal 1-4 [facility] Comment on above: Performed By: #### T ROPI, HCG, BMPX, CDP #### [facility] [address] [place] [address] Preparer [employer]: Clark Segovia MD Erythrocyte distribution width (RBC) [Ratio] 12.4 % Normal 11.8-14.4 [facility] Comment on above: Performed By: #### T ROPI, HCG, BMPX, CDP #### [facility] [address] [place] [address] Preparer [employer] Rep[employer]: Clark Segovia MD Hematocrit (Bld) [Volume fraction] 39.2 % Normal 36.3-47.1 [facility] Comment on above: Performed By: #### T ROPI, HCG, BMPX, CDP #### [facility] [address] [place] [address] Preparer [employer]: Clark Segovia MD Hemoglobin (Bld) [Mass/Vol] 13.6 g/dL Normal 11.9-15.1 [facility] Comment on above: Performed By: #### T ROPI, HCG, BMPX, CDP #### [address] [address] Preparer [employer]: Clark Segovia MD Immature granulocytes/100 WBC (Bld) 0 % Normal 0 [facility] Comment on above: Performed By: #### T ROPI, HCG, BMPX, CDP #### [place] [address] Preparer Samples [employer] Repairs: Clark Segovia MD Lymphocytes (Bld) [#/Vol] 2.11 10*3/uL Normal 1.10-3.70 [facility] Comment on above: Performed By: #### T ROPI, HCG, BMPX, CDP #### [address] [address] Preparer [employer] Rep[employer]: Clark Segovia MD Lymphocytes/100 WBC (Bld) 25 % Normal 24-43 [facility] Comment on above: Performed By: #### T ROPI, HCG, BMPX, CDP #### [place] [address] Preparer [employer] Rep[employer]: Clark Segovia MD MCH (RBC) [Entitic mass] 32.4 pg Normal 25.2-33.5 [facility] Comment on above: Performed By: #### T ROPI, HCG, BMPX, CDP #### [facility] [address] [place] [address] Preparer Samples [employer] Rep[employer]: Clark Segovia MD MCHC (RBC) [Mass/Vol] 34.7 g/dL Normal 28.4-34.8 [facility] Comment on above: Performed By: #### T ROPI, HCG, BMPX, CDP #### [address] [address] Preparer [employer]: Clark Segovia MD MCV (RBC) [Entitic vol] 93.3 fL Normal 82.6-102.9 [facility] Comment on above: Performed By: #### T ROPI, HCG, BMPX, CDP #### [address] [address] Prep[employer]: Clark Segovia MD Monocytes (Bld) [#/Vol] 0.86 10*3/uL Normal 0.10-1.20 [facility] Comment on above: Performed By: #### T ROPI, HCG, BMPX, CDP #### [facility] [address] [place] [address] Preparer [employer]: Clark Segovia MD Monocytes/100 WBC (Bld) 10 % Normal 3-12 [facility] Comment on above: Performed By: #### T ROPI, HCG, BMPX, CDP #### [address] [address] Preparer [employer]: Clark Segovia MD Neutrophil (Seg) 63 % Normal 36-65 [facility] Comment on above: Performed By: #### T ROPI, HCG, BMPX, CDP #### [address] [address] Preparer [employer] Rep[employer]: Clark Segovia MD NRBC Automated 0.0 per 100 WBC Normal 0.0 [facility] Comment on above: Performed By: #### T ROPI, HCG, BMPX, CDP #### [facility] [address] [place] [address] Preparer [employer]: Clark Segovia MD Platelet mean volume (Bld) [Entitic vol] 10.2 fL Normal 8.1-13.5 [facility] Comment on above: Performed By: #### T ROPI, HCG, BMPX, CDP #### [facility] [address] [place] [address] Preparer [employer]: Clark Segovia MD Platelets (Bld) [#/Vol] 196 10*3/uL Normal 138-453 [facility] Comment on above: Performed By: #### T ROPI, HCG, BMPX, CDP #### [facility] [address] [place] [address] Preparer Samples And Repairs: Clark Segovia MD RBC (Bld) [#/Vol] 4.20 10*6/uL Normal 3.95-5.11 [facility] Comment on above: Performed By: #### T ROPI, HCG, BMPX, CDP #### [facility] [address] [place] [address] Preparer Samples And Repairs: Clark Segovia MD WBC (Bld) [#/Vol] 8.5 10*3/uL Normal 3.5-11.3 [facility] Comment on above: Performed By: #### T ROPI, HCG, BMPX, CDP #### [facility] [address] [place] [address] Preparer Samples And Repairs: Clark Segovia MD CT CHEST PULMONARY EMBOLISM [...] Merle Griffith MD 05/03/21 Final result Normal [facility] No evidence of pulmo nary embolism or acute pulmonary abnormality. RECOMMENDATIONS: Unavailable [facility] EXAMINATION: CTA OF THE CHEST 05/03/2021 3:11 [...] No acute bone or soft tissue abnormality. [facility] Merle Griffith MD - 05/03/2021 EXAMINATION: [...] embolism or acute pulmonary abnormality. RECOMMENDATIONS: Unavailable [employer] Phone: Radiology Study observation (narrative) [employer] Phone: CT CHEST PULMONARY EMBOLISM W CONTRASTOrdered By: Merle Griffith on 05-03-2021 [employer] Phone: HCG Qualitative, Serumon hCG Qual Negative NEGATIVE [facility] Comment on above: Specimens with hCG l evels near the threshold of the test (25 mIU/mL) may give a negative or indeterminate result. In such cases, another test should be performed with a new specimen in 48-72 hours. If early is suspected clinically in this setting, correlation with quantitative serum b-hCG level is suggested. [employer] has confirmed the use of plasma for this test. This has not been cleared or approved by the U.S. Food and Drug Administration. The FDA has determined that such clearance is not necessary. [facility] HCG Screen, Bloodon 05-04-19 22 HCG Screen, Blood Negative Normal NEG [facility] Comment on above: Result Comment: Spec imens with hCG levels near the threshold of the test (25 mIU/mL) may give a negative or indeterminate result. In such cases, another test should be performed with a new specimen in 48-72 hours. If early is suspected clinically in this setting, correlation with quantitative serum b-hCG level is suggested. [employer] has confirmed the use of plasma for this test. This has not been cleared or approved by the U.S. Food and Drug Administration. The FDA has determined that such clearance is not necessary. Performed By: #### T JUWAN TERRAZAS, BMPX, CDP #### [facility] [address] [place] [address] Preparer Samples And Repairs: Clark Segovia MD No Panel Informationon 05-03 [facility] Troponinon 05-03-2021 Troponin, High Sens <6 Normal 0-14 [facility] Comment on above: Result Comment: High Sensitivity Troponin values cannot be compared with other Troponin methodologies. Patients with high levels of Biotin oral intake (i.e >5mg/day) may have falsely decreased Troponin levels. Samples collected within 8 hours of biotin intake may require additional information for diagnosis. Performed By: #### T JUWAN TERRAZAS BMPX, CDP #### [facility] [address] [place] [address] Preparer Samples And Repairs: Clark Segovia MD Troponin, High Sensitivity <6 0 - 14 ng/L [facility] Comment on above: High Sensitivity Troponin values cannot be compared with other Troponin methodologies. Patients with high levels of Biotin oral intake (i.e >5mg/day) may have falsely decreased Troponin levels. Samples collected within 8 hours of biotin intake may require additional information for diagnosis. .eGFRon 02-06-2021 eGFR AA >60 Normal >=60 [facility] Comment on above: Order Comment: Order added by Discern rule Result Comment: See comment. Performed By: #### E GFR #### [facility] [address] [place] [address] eGFR Non-AA >60 Normal >=60 [facility] Comment on above: Order Comment: Order added [...] years Performed By: #### E GFR #### [place] [id number] CBCon 02-06-2021 Erythrocyte distribution width (RBC) [Ratio] 14.6 % Normal 11.6-14.8 [facility] Comment on above: Performed By: #### C BC #### [place] [id number] Hematocrit (Bld) [Volume fraction] 36.6 % Normal 36.0-46.0 [facility] Comment on above: Performed By: #### C BC #### [place] [id number] Hemoglobin (Bld) [Mass/Vol] 12.9 g/dL Normal 12.0-16.0 [facility] Comment on above: Performed By: #### C BC #### [place] [id number] MCH (RBC) [Entitic mass] 32.3 pg Normal 27.0-35.0 [facility] Comment on above: Performed By: #### C BC #### [place] [id number] MCHC 35.2 % Normal 31.0-37.0 [facility] Comment on above: Performed By: #### C BC #### [place] [id number] MCV (RBC) [Entitic vol] 91.7 fL Normal 80.0-100.0 [facility] Comment on above: Performed By: #### C BC #### [place] [id number] Platelet 168 x10*3/mcL Normal 150-350 [facility] Comment on above: Performed By: #### C BC #### [address] [address] Platelet mean volume (Bld) [Entitic vol] 8.2 fL Normal 6.7-10.6 [facility] Comment on above: Performed By: #### C BC #### [address] [address] RBC 3.99 x10*6/mcL Normal 3.80-5.20 [facility] Comment on above: Performed By: #### C BC #### [address] [address] WBC 5.6 x10*3/mcL Normal 4.5-11.0 [facility] Comment on above: Performed By: #### C BC #### [address] [address] CMPon 02-06-2021 Albumin [Mass/Vol] 3.4 g/dL Normal 3.2-4.9 [facility] Comment on above: Performed By: #### A LC #### [address] [address] Albumin/Globulin [Mass ratio] 1.1 {ratio} Normal 1.1-2.2 [facility] Comment on above: Performed By: #### A LC #### [address] [address] Alk Phos 68 IU/L Normal 32-91 [facility] Comment on above: Performed By: #### A LC #### [address] [address] ALT [Catalytic activity/Vol] 309 U/L High 14-54 [facility] Comment on above: Performed By: #### A LC #### [address] [address] Anion gap [Moles/Vol] 13 mmol/L Normal 7-17 [facility] Comment on above: Performed By: #### A LC #### [address] [address] AST [Catalytic activity/Vol] 392 U/L High 15-41 [facility] Comment on above: Performed By: #### A LC #### [address] [address] Bili Total 0.7 mg/dL Normal 0.3-1.2 [facility] Comment on above: Performed By: #### A LC #### [address] [address] Calcium [Mass/Vol] 8.2 mg/dL Low 8.5-10.3 [facility] Comment on above: Performed By: #### A LC #### [address] [address] Chloride [Moles/Vol] 107 mmol/L Normal 98-110 [facility] Comment on above: Performed By: #### A LC #### [address] [address] CO2 [Moles/Vol] 24 mmol/L Normal 22-32 [facility] Comment on above: Performed By: #### A LC #### [address] [address] Creatinine [Mass/Vol] 0.58 mg/dL Normal 0.44-1.03 [facility] Comment on above: Performed By: #### A LC #### [address] [address] Glucose [Mass/Vol] 84 mg/dL Normal 70-99 [facility] Comment on above: Performed By: #### A LC #### [address] [address] Potassium [Moles/Vol] 3.9 mmol/L Normal 3.4-4.8 [facility] Comment on above: Performed By: #### A LC #### [address] [address] Protein [Mass/Vol] 6.4 g/dL Low 6.5-8.1 [facility] Comment on above: Performed By: #### A LC #### [address] [address] Sodium [Moles/Vol] 140 mmol/L Normal 133-142 [facility] Comment on above: Performed By: #### A LC #### [address] [address] Urea nitrogen [Mass/Vol] 13 mg/dL Normal 8-26 [facility] Comment on above: Performed By: #### A LC #### [address] [address] Urea nitrogen/Creatinine [Mass ratio] 22.4 mg/mg High 10.0-20.0 [facility] Comment on above: Performed By: #### A LC #### [address] [address] Ethanolon 02-06-2021 Ethanol, Plasma 124 mg/dL High <=9 [facility] Comment on above: Result Comment: To c onvert mg/dL to g/dL, divide result by 1,000. Legal limit of intoxication is 80 mg/dL (0.08 g/dL). Performed By: #### A LC #### [address] [address] Hep Func Panelon 02-06-2021 Albumin [Mass/Vol] 3.3 g/dL Normal 3.2-4.9 [facility] Comment on above: Performed By: #### C [id number] #### [address] [address] Alk Phos 68 IU/L Normal 32-91 [facility] Comment on above: Performed By: #### C [id number] #### [address] [address] ALT [Catalytic activity/Vol] 308 U/L High 14-54 [facility] Comment on above: Performed By: #### C [id number] #### [address] [address] AST [Catalytic activity/Vol] 404 U/L High 15-41 [facility] Comment on above: Performed By: #### C [id number] #### [address] [address] Bili Direct 0.1 mg/dL Normal 0.1-0.5 [facility] Comment on above: Performed By: #### C [id number] #### [address] [address] Bili Indirect 0.8 mg/dL Normal 0.0-1.0 [facility] Comment on above: Performed By: #### C [id number] #### [address] [address] Bili Total 0.9 mg/dL Normal 0.3-1.2 [facility] Comment on above: Performed By: #### C [id number] #### [address] [address] Protein [Mass/Vol] 6.3 g/dL Low 6.5-8.1 [facility] Comment on above: Performed By: #### C [id number] #### [address] [address] Hgb A1con 02-06-2021 Glucose [Mass/Vol] 117 mg/dL High 68-114 [facility] Comment on above: Result Comment: Math ematical Calc approx. The mean gluc equivalency of A1c Performed By: #### C [id number] #### [address] [address] Hgb A1c 5.7 % A1c High 4.0-5.6 [facility] Comment on above: Result Comment: Refe rence Range: 4.0 - 5.6 % Normal 5.7 - 6.4 % Pre-Diabetes > 6.5 % Diabetes Performed By: #### C [id number] #### [address] [address] Inpatient Clinical Summaryon 02-06-2021 Inpatient Clinical Summary [place] [address] [place] [address] [address] Clinical Summary Person Information Name: Lyle Bailey Age: 31 Years : 1990 Sex: Female PCP: Marital Status: Single PCP: Race: White Ethnicity: Not or Language: Citizen Of [place] Visit Id: Visit Reason: Alcohol withdrawal Speciality: Acuity: Enc Type: Inpatient Med Service: Emergency Medicine Arrival: 02/05/2021 16:34:16 Discharge: Dispo Type: Admitted as Inpatient Address: [address] [place] [address] Diagnosis: 1:Alcohol intoxication; 2:Alcohol dependence; 3:Schizo-affective type [...] range between ( 27.2 and 40.8 ) Marathon Auto: 5.1 % -- Normal range between ( 3.7 and 11.9 ) Eos Auto: 0.6 % -- Normal range between ( 0.0 and 5.4 ) Basophil Auto: 0.4 % -- Normal range between ( 0.0 and 1.5 ) Baso Absolute: 0.0 x10 Lymph Absolute: 4.5 x10 [place] Absolute: 0.6 x10 Neutro Absolute: 6.1 x10 [...] Negative ng/ (more content not included)... Normal [facility] MRSA, PCRon 02-06-2021 Methicillin Resistant Staph aurus(MRSA) Negative Normal [facility] Comment on above: Result Comment: The [employer] Xpert MRSA Assay is a qualitative in [...] clinician. Performed By: #### A LC #### [address] [address] PTon 02-06-2021 INR Coag (PPP) [Relative time] 1.0 {INR} Normal <=3.5 [facility] Comment on above: Result Comment: INR has no normal range. INR Therapeutic range is: 2.0-3.0 (AF, CVA, TIAs, DVT prophylaxis, acute DVT) 2.5-3.5 (Mech heart valves, recurrent thrombosis/emboli) Performed By: #### C BC #### [address] [address] PT Coag (PPP) [Time] 10.5 s Normal 9.4-12.1 [facility] Comment on above: Performed By: #### C BC #### [address] [address] PTTon 02-06-2021 aPTT Coag (Bld) [Time] 23.3 s Normal 20.2-27.0 [facility] Comment on above: Performed By: #### A LC #### [address] [address] Phosphoruson 02-06-2021 Phosphate [Mass/Vol] 3.2 mg/dL Normal 2.5-4.6 [facility] Comment on above: Performed By: #### C [id number] #### [facility] [address] [place] [address] Progress Note-Nurseon 2020 Progress Note-Nurse Dr. Arnold was at bedside explained potential symptoms and problems that may occur after leaving while going through [facility]. Patient states she is going to go to an outpatient program. Patient wants to be discharged. Electronically signed by _ Long Martha Anisa 02/06/21 15:10 EST Normal [facility] Progress Note-Nurse Patient asked about her gabapentin and stated she wants to go home. provider notified about her request. Electronically signed by _ Long Martha Anisa 02/06/21 14:30 EST Normal [facility] Progress Note-Nurse Patient still sleepy , will answer question. Electronically signed by _ Long Martha Anisa 02/06/21 09:09 EST Normal [facility] TSHon 02-06-2021 TSH Qn 2.49 m[IU]/L Normal 0.45-5.33 [facility] Comment on above: Result Comment: Refe rence Ranges for individuals from to 18 years of age were obtained from The [employer] Handbook (20 ed) published by [facility]. Reference Ranges for Females: Females, 1st Trimester 0.05 ? 3.7 uIU/mL Females, 2nd Trimester 0.31 ? 4.35 uIU/mL Females, 3rd Trimester 0.41 ? 5.18 uIU/mL Performed By: #### C [id number] #### [address] [address] Total T4on 02-06-2021 T4 [Mass/Vol] 5.7 ug/dL Normal 5.0-11.5 [facility] Comment on above: Performed By: #### C [id number] #### [place] [address] .Fentanyl Scrn wo Conf,Uron 02-05-2021 Ur Fentanyl Scrn Negative Normal NEG <1.0 [facility] Comment on above: Performed By: #### C BC #### [place] [address] Ur Fentanyl Scrn Qnt 0.15 ng/mL Normal <=0.99 [facility] Comment on above: Performed By: #### C BC #### [place] [address] .eGFRon 02-05-2021 eGFR AA >60 Normal >=60 [facility] Comment on above: Result Comment: See comment. Performed By: #### A LC #### [place] [address] eGFR Non-AA >60 Normal >=60 [facility] Comment on above: Result Comment: Stag es [...] years Performed By: #### A LC #### [address] [address] Amylaseon 02-05-2021 Amylase [Catalytic activity/Vol] 121 U/L High 28-100 [facility] Comment on above: Performed By: #### A LC #### [address] [address] B12/Folate Lvlon 02-05-2021 Cobalamin (Vitamin B12) [Mass/Vol] 406 pg/mL Normal 180-914 [facility] Comment on above: Performed By: #### C [id number] #### [address] [address] Folate Lvl 10.5 ng/mL Normal >=5.9 [facility] Comment on above: Result Comment: A WH O Technical Consultation has determined that deficient Folate concentrations are considered to be less than 4 ng/mL. Performed By: #### C [id number] #### [address] [address] CBC w/ Diffon 02-05-2021 Erythrocyte distribution width (RBC) [Ratio] 14.3 % Normal 11.6-14.8 [facility] Comment on above: Performed By: #### C BC #### [address] [address] Hematocrit (Bld) [Volume fraction] 39.4 % Normal 36.0-46.0 [facility] Comment on above: Performed By: #### C BC #### [address] [address] Hemoglobin (Bld) [Mass/Vol] 13.8 g/dL Normal 12.0-16.0 [facility] Comment on above: Performed By: #### C BC #### [address] [address] MCH (RBC) [Entitic mass] 31.9 pg Normal 27.0-35.0 [facility] Comment on above: Performed By: #### C BC #### [address] [address] MCHC 34.9 % Normal 31.0-37.0 [facility] Comment on above: Performed By: #### C BC #### [address] [address] MCV (RBC) [Entitic vol] 91.2 fL Normal 80.0-100.0 [facility] Comment on above: Performed By: #### C BC #### [address] [address] Platelet 199 x10*3/mcL Normal 150-350 [facility] Comment on above: Performed By: #### C BC #### [address] [address] Platelet mean volume (Bld) [Entitic vol] 8.2 fL Normal 6.7-10.6 [facility] Comment on above: Performed By: #### C BC #### [address] [address] RBC 4.32 x10*6/mcL Normal 3.80-5.20 [facility] Comment on above: Performed By: #### C BC #### [address] [address] WBC 11.2 x10*3/mcL High 4.5-11.0 [facility] Comment on above: Performed By: #### C BC #### [address] [address] CMPon 02-05-2021 Albumin [Mass/Vol] 4.1 g/dL Normal 3.2-4.9 [facility] Comment on above: Performed By: #### C [id number] #### [address] [address] Albumin/Globulin [Mass ratio] 1.1 {ratio} Normal 1.1-2.2 [facility] Comment on above: Performed By: #### C [id number] #### [place] [id number] [facility] [place] [address] Alk Phos 79 IU/L Normal 32-91 [facility] Comment on above: Performed By: #### C [id number] #### [address] [place] [address] ALT [Catalytic activity/Vol] 320 U/L High 14-54 [facility] Comment on above: Performed By: #### C [id number] #### [address] [address] Anion gap [Moles/Vol] 14 mmol/L Normal 7-17 [facility] Comment on above: Performed By: #### C [id number] #### [address] [address] AST [Catalytic activity/Vol] 431 U/L High 15-41 [facility] Comment on above: Performed By: #### C [id number] #### [address] [address] Bili Total 0.4 mg/dL Normal 0.3-1.2 [facility] Comment on above: Performed By: #### C [id number] #### [address] [address] Calcium [Mass/Vol] 9.5 mg/dL Normal 8.5-10.3 [facility] Comment on above: Performed By: #### C D:[id number] #### [address] [address] Chloride [Moles/Vol] 105 mmol/L Normal 98-110 [facility] Comment on above: Performed By: #### C [id number] #### [address] [place] [address] CO2 [Moles/Vol] 25 mmol/L Normal 22-32 [facility] Comment on above: Performed By: #### C [id number] #### [address] [place] [address] Creatinine [Mass/Vol] 0.64 mg/dL Normal 0.44-1.03 [facility] Comment on above: Performed By: #### C D:[id number] #### [address] [address] Glucose [Mass/Vol] 103 mg/dL High 70-99 [facility] Comment on above: Performed By: #### C D:[id number] #### [address] [address] Potassium [Moles/Vol] 3.9 mmol/L Normal 3.4-4.8 [facility] Comment on above: Performed By: #### C D:[id number] #### [address] [address] Protein [Mass/Vol] 7.7 g/dL Normal 6.5-8.1 [facility] Comment on above: Performed By: #### C D:[id number] #### [address] [address] Sodium [Moles/Vol] 140 mmol/L Normal 133-142 [facility] Comment on above: Performed By: #### C [id number] #### [address] [address] Urea nitrogen [Mass/Vol] 13 mg/dL Normal 8-26 [facility] Comment on above: Performed By: #### C [id number] #### [address] [address] Urea nitrogen/Creatinine [Mass ratio] 20.3 mg/mg High 10.0-20.0 [facility] Comment on above: Performed By: #### C [id number] #### [address] [address] COV19 Rapidon 02-05-2021 Employed in healthcare? No Normal [facility] Comment on above: Performed By: #### A LC #### [address] [place] [address] Group care resident? No Normal [facility] Comment on above: Performed By: #### A LC #### [facility] [address] [place] [address] In ICU? Yes Normal [facility] Comment on above: Performed By: #### A LC #### [facility] [address] [place] [address] status? Not Normal [facility] Comment on above: Performed By: #### A LC #### [facility] [address] [place] [address] Reason for Rapid Test Inpatient Normal [facility] Comment on above: Performed By: #### A LC #### [address] [place] [address] SARS-CoV-2 (COVID-19) RNA MOISES+probe Ql (Unsp spec) Negative Normal Negative [facility] Comment on above: Result Comment: The 2019 [...] using the ID NOW COVID-19 test by [employer] [facility], which has received Emergency Use Authorization (EUA) [...] following links: Fact Sheet for HealthCare Providers: https://www.fda.gov/media/561343/download Fact Sheet for Patients: https://www.fda.gov/media/898719/download Performed By: #### A LC #### [place] [id number] SARS-CoV-2 (COVID-19) RNA MOISES+probe Ql (Unsp spec) No Normal [facility] Comment on above: Performed By: #### A LC #### [place] [id number] SARS-CoV-2 (COVID-19) RNA MOISES+probe Ql (Unsp spec) Unknown Normal [facility] Comment on above: Performed By: #### A LC #### [place] [address] Symptomatic as defined by CDC? No Normal [facility] Comment on above: Performed By: #### A LC #### [place] [address] Diff Autoon 02-05-2021 Baso Absolute 0.0 x10*3/mcL Normal 0.0-0.2 [facility] Comment on above: Performed By: #### C BC #### [address] [address] Basophils/100 WBC (Bld) 0.4 % Normal 0.0-1.5 [facility] Comment on above: Performed By: #### C BC #### [place] [id number] Eos Absolute 0.1 x10*3/mcL Normal 0.0-0.4 [facility] Comment on above: Performed By: #### C BC #### [address] [address] Eosinophils/100 WBC (Bld) 0.6 % Normal 0.0-5.4 [facility] Comment on above: Performed By: #### C BC #### [address] [address] Lymph Absolute 4.5 x10*3/mcL Normal 1.0-4.8 [facility] Comment on above: Performed By: #### C BC #### [address] [address] Lymphocytes/100 WBC (Bld) 39.7 % Normal 27.2-40.8 [facility] Comment on above: Performed By: #### C BC #### [address] [address] Marathon Absolute 0.6 x10*3/mcL Normal 0.1-1.1 [facility] Comment on above: Performed By: #### C BC #### [address] [address] Monocytes/100 WBC (Bld) 5.1 % Normal 3.7-11.9 [facility] Comment on above: Performed By: #### C BC #### [address] [address] Neutro Absolute 6.1 x10*3/mcL Normal 1.8-7.7 [facility] Comment on above: Performed By: #### C BC #### [address] [address] Neutro Auto 54.2 % Normal 47.2-70.8 [facility] Comment on above: Performed By: #### C BC #### [address] [address] ED Clinical Summaryon 2020 ED Clinical Summary (Inserted Image. Tracy ble to display) [address] [address] ED Clinical Summary Person Information Name: Lyle [place] [facility] Age: 31 Years : 1990 Sex: Female PCP: Marital Status: Single Race: White Ethnicity: Not or Language: Citizen Of [place] Visit Reason: Alcohol intoxication; Alcohol withdrawal Acuity: 3 Enc Type: Inpatient Med Service: Emergency Medicine Arrival: 02/05/2021 16:34:16 Discharge: LOS: 000 03:06 Checkin: 02/05/2021 16:34:16 Checkout: 02/05/2021 19:40:07 Dispo Type: Admitted as Inpatient Address: [address] [place] [address] Provider Notes: History of Present Illness Patient [...] in this document, created by the medical doctor md for me, accurately reflects the services I [...] range between ( 27.2 and 40.8 ) Marathon Auto: 5.1 % -- Normal range between ( 3.7 and 11.9 ) Eos Auto: 0.6 % (more content not included)... Normal [facility] ED Note-Physicianon 02-06-20 ED Note-Physician Chief Complaint [...] in this document, created by the medical doctor md for me, accurately reflects the services I [...] patient?s conditi (more content not included)... Normal [facility] Ethanolon 02-05-2021 Ethanol, Plasma 509 mg/dL Critically abnormal <=9 [facility] Comment on above: Result Comment: Test completion time: 1746 Called date and time: 02/05/2021 17:47:12 EST Result called to and read back by: Michelle PATEL RN (First, Last, Title, Location) To convert mg/dL to g/dL, divide result by 1,000. Legal limit of intoxication is 80 mg/dL (0.08 g/dL). Performed By: #### A LC #### [address] [address] Lipaseon 02-05-2021 Lipase Lvl 118 IU/L High 22-51 [facility] Comment on above: Performed By: #### C [id number] #### [address] [address] Magnesiumon 02-05-2021 Magnesium [Mass/Vol] 2.2 mg/dL Normal 1.7-2.4 [facility] Comment on above: Performed By: #### C [id number] #### [address] [address] PTon 02-05-2021 INR Coag (PPP) [Relative time] 0.9 {INR} Normal <=3.5 [facility] Comment on above: Result Comment: INR has no normal range. INR Therapeutic range is: 2.0-3.0 (AF, CVA, TIAs, DVT prophylaxis, acute DVT) 2.5-3.5 ([facility] heart valves, recurrent thrombosis/emboli) Performed By: #### A LC #### [address] [address] PT Coag (PPP) [Time] 10.0 s Normal 9.4-12.1 [facility] Comment on above: Performed By: #### A LC #### [address] [place] [address] PTTon 02-05-2021 aPTT Coag (Bld) [Time] 23.2 s Normal 20.2-27.0 [facility] Comment on above: Performed By: #### C D:[id number] #### [address] [address] UDS Compon 02-05-2021 Ur Amph Scrn Negative Normal NEG = <1000 [facility] Comment on above: Performed By: #### C [id number] #### [address] [address] Ur Janell Scrn Negative Normal NEG = <200 [facility] Comment on above: Performed By: #### C [id number] #### [address] [address] Ur Benzodia Scrn Negative Normal NEG = <200 [facility] Comment on above: Performed By: #### C [id number] #### [address] [address] Ur Cannab Scrn Negative Normal NEG = <50 [facility] Comment on above: Performed By: #### C [id number] #### [address] [address] Ur Cocaine Scrn Negative Normal NEG = <300 [facility] Comment on above: Performed By: #### C [id number] #### [address] [address] Ur Creatinine Tox Scrn <10.0 Normal [facility] Comment on above: Performed By: #### C [id number] #### [address] [address] Ur Methadone Scn Negative Normal NEG = <300 [facility] Comment on above: Performed By: #### C D:[id number] #### [address] [address] Ur Opiate Scrn Negative Normal NEG = <300 [facility] Comment on above: Performed By: #### C [id number] #### [address] [address] Ur Oxy Screen Negative Normal NEG = <100 [facility] Comment on above: Performed By: #### C D:[id number] #### [address] [address] Ur Oxy Scrn Qnt 0 ng/mL Normal <=99 [facility] Comment on above: Performed By: #### C [id number] #### [address] [address] Ur PCP Scrn Negative Normal NEG = <25 [facility] Comment on above: Performed By: #### C D:[id number] #### [address] [address] UA pH 5.0 Normal 4.5 - 7.8 [facility] Comment on above: Performed By: #### C [id number] #### [address] [address] UA Spec Grav 1.003 Normal 1.003-1.035 [facility] Comment on above: Performed By: #### C D:[id number] #### [address] [address] HSV BY PCR QUAL SKIN/MUCOSA LESIONon 09-25-2020 HSV-1 SKIN/MUCOSA Not detected Normal Not Detected [facility] Comment on above: Performed By: #### C OV19 #### [facility] [address] [place] [address] HSV-2 SKIN/MUCOSA Not detected Normal Not Detected [facility] Comment on above: Result Comment: The [...] detection. Performed By: #### C OV19 #### [facility] [address] [place] [address] HSV BY PCR QUAL SKIN/MUCOSA LESIONon 09-24-2020 Lab Specimen Source Mucosa, Mouth Normal [facility] Comment on above: Performed By: #### C OV19 #### [facility] [address] [place] [address] HSV-1 SKIN/MUCOSA Canceled [facility] Comment on above: Order Comment: TEST HSV BY PCR QUAL SKIN/MUCOSA LESION WAS CANCELLED, 09/24/2020 11:12 Performed By: #### H SVSS #### [facility] [address] [place] [address] HSV-2 SKIN/MUCOSA Canceled [facility] Comment on above: Order Comment: TEST HSV [...] detection. Performed By: #### H SVSS #### [facility] [address] [place] [address] GC + CHLAMYDIA BY AMPLIFIED DETECTIONon 09-23-2020 CHLAMYDIA TRACH.,AMPLIFIED Negative Normal Negative [facility] Comment on above: Result Comment: The APTIMA Combo 2 assay is FDA-approved for Chlamydia trachomatis and Neisseria gonorrhoeae testing on female endocervical and vaginal swabs, ThinPrep liquid pap samples, male urine samples and urethral swabs. Performance characteristics for Chlamydia trachomatis and Neisseria gonorrhoeae testing on specific llm-[id number]-yrhroskx sample types (female urine samples) have been validated by [facility]. This laboratory is certified by CLIA to perform high complexity testing. Samples from all other sites are not validated for this method. Performed By: #### G CCHA #### [facility] [address] [place] N.GONORRHEA,AMPLIFIED Negative Normal Negative [facility] Comment on above: Result Comment: The APTIMA Combo 2 assay is FDA-approved for Chlamydia trachomatis and Neisseria gonorrhoeae testing on female endocervical and vaginal swabs, ThinPrep liquid pap samples, male urine samples and urethral swabs. Performance characteristics for Chlamydia trachomatis and Neisseria gonorrhoeae testing on specific zvl-WBY-meylyxxn sample types (female urine samples) have been validated by [facility]. This laboratory is certified by CLIA to perform high complexity testing. Samples from all other sites are not validated for this method. Performed By: #### G CCHA #### [facility] [address] [place], [place] GC + CHLAMYDIA BY AMPLIFIED DETECTIONon 09-22-2020 Lab Specimen Source Throat Normal [facility] Comment on above: Performed By: #### G CCHA #### [facility] [address] [place] [address] HSV BY PCR QUAL SKIN/MUCOSA LESIONon 09-22-2020 Lab Specimen Source Mucosa, Mouth Normal [facility] Comment on above: Order Comment: TEST HSV BY PCR QUAL SKIN/MUCOSA LESION WAS CANCELLED, 09/24/2020 11:12 Performed By: #### H SVSS #### [facility] [address] 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 Pt verbalized understanding. Electronic Signatures: Chilo Glover (HOUSING MANAGEMENT REPRESENTATIVE-[facility]) (Signed 23-Sep-2020 09:16) Authored: ED Notes, HPI, PMH, ROS, PE, Results/Vital Signs, MDM/ED Course, Clinical Impression, Attestation, Chart Review, Scores Leann Hall (HOUSING MANAGEMENT REPRESENTATIVE-[facility]) (Signature Pending) Authored: Chart Review, Scores Last Updated: 27-Sep-2020 10:06 by Leann Hall (HOUSING MANAGEMENT REPRESENTATIVE-[facility]) Normal [facility] *VAGINITIS DNA PROBEon 09-05 *VAGINITIS DNA PROBE Clinical Report: (D ) Specimen: GENITAL Collected: 09/05/2020 15:45 Status: Final Last Updated: 09/06/2020 09:20 MELVIN (Final) Negative AFTAB (Final) Positive TRICH (Final) Negative Normal [facility] Comment on above: Performed By: #### 3 0788 #### [facility] [address] CHLAMYDIA/GONORRHEA BY [facility] CHLAMYDIA BY TMA Negative Normal NEGATIVE [facility] Comment on above: Result Comment: No C hlamydia trachomatis rRNA Detected. Performed By: #### 3 1627 #### [facility] [address] GONORRHEA BY TMA Negative Normal NEGATIVE [facility] Comment on above: Result Comment: No Neisseria gonorrhoeae rRNA Detected. The Aptima Combo 2 Assay is a FDA approved target amplification nucleic acid probe test that utilizes target capture for the in vitro qualitative detection and differentiation of ribosomal RNA (rRNA) from Chlamydia trachomatis (CT) and/or Neisseria gonorrhoeae (GC) to aid the diagnosis of chlamydial and/or gonococcal urogenital disease using the Warren System. The Aptima Combo2 Assay involves: target capture; target amplification by Marshmallow Machine Worker-Mediated Amplification (TMA); and detection of the amplification products (amplicon) by the Hybridization Protection Assay (HPA). The internal process controls of the Warren System monitor the target capture, amplification, and detection steps of the assay, this is NOT intended to control for sampling adequacy. Performed By: #### 3 1627 #### [facility] [address] HPV HIGH RISK BY [facility] HPV DEFAULT Please refer to the Batting Machine Operator Insulation Cytology (Pap test) report for HPV test results. Normal [facility] Comment on above: Order Comment: [id number] Performed By: #### 3 1633 #### [facility] [address] Office Visit (Internal Medic ine)on 06-02-2020 [...] depression; LISA = N; Verified Transmission to [place] [address]; Last Updated By: SkyPhrase; 06/02/2020 8:33:07 AM Generalized anxiety disorder with panic attacks Renew: busPIRone HCl - 10 MG Oral Tablet; TAKE 1-2 TABLETS 3 times daily PRN Rx By: Nini Wolf; Dispense: 30 Days ; #:180 Tablet; Refill: 0;For: Generalized anxiety disorder with panic attacks; LISA = N; Verified Transmission to [place] [address]; Last Updated By: SkyPhrase; 06/02/2020 8:33:11 AM Nausea in adult Start: Ondansetron 4 MG Oral Tablet Disintegrating; TAKE 1 TABLET 3 times daily PRN nausea Rx By: Nini Wolf; Dispense: 0 Days ; #:30 Tablet; Refill: 0;For: Nausea in adult; LISA = N; Verified Transmission to [place] [address]; Last Updated By: SkyPhrase; 06/02/2020 8:39:25 AM Restless legs syndrome Start: rOPINIRole HCl - 0.5 MG Oral Tablet; TAKE 1 TABLET Bedtime Rx By: Nini Wolf; Dispense: 30 Days ; #:30 Tablet; Refill: 0;For: Restless legs syndrome; LISA = N; Verified Transmission to [place] [address]; Last Updated By: SkyPhrase; 06/02/2020 8:38:03 AM Patient Discussion/Summary F/U 2 [...] TIME. DO TO TECHNICAL DIFFICULTIES WITH THE [employer], THIS VIRTUAL VISIT WAS FINISHED VIA [...] consent was requested and obtained from LYLE BAILEY on this date, 06/02/2020 10:00 AM , for a telehealth visit. VIRTUAL; 3 MO F/U-MED REFILL GABAPENTIN. SHE SAID THAT SHE HAD SEEN BEHAVIORAL DOCTOR WHO INCREASED HER GABAPENTIN TO 600MG TID. History of Present IllnessVIRTUAL APPOINTMENT BEING PERFORMED DUE TO COVID-19 (CORONAVIRUS) Presents today for [employer] F/U. SHE WAS SEEN ON 05/25/20 FOR AN INTENTIONAL DRUG OVER DOSE. SHE WAS DRINKING ALCOHOL AND TOOK 60 400 MG GABAPENTIN. SHE WAS TRANSFERRED TO IN PATIENT FACILITY. [facility]. modifying factors consists of SHE IS SEEING [facility] BUT UNABLE TO SEE A PROVIDER UNTIL [...] weight loss (more content not included)... Normal [facility] Office Visit (Internal Medic ine)on 05-17-2020 [...] attacks; LISA = N; Verified Transmission to [facility]; Last Updated By: Vijay Antonio; 05/17/2020 1:30:14 PM Patient Discussion/Summary F/U BEFORE [...] consent was requested and obtained from LYLE BAILEY on this date, 05/17/2020 08:40 AM , for a telehealth visit. VIRTUAL VISIT- ER FOLLOW UP ANXIETY. History of Present IllnessVIRTUAL APPOINTMENT BEING PERFORMED DUE TO COVID-19 (CORONAVIRUS) Presents today for [facility] F/U. SHE WAS SEEN AT THE [facility] IN [place], [place] ON 05/09/20 FOR SUICIDAL IDEATION AND WAS KEPT OVER NIGHT FOR OBSERVATION. SHE WAS STILL SUICIDAL WITH A PLAN TO TAKE A BOTTLE OF PILLS ON 05/10/20 SO SHE WAS TRANSFERRED TO [facility] FOR AN IN PATIENT STAY FROM 05/10/20 - 05/14/20. SEVERAL MED CHANGES APPLIED, INCLUDING HER GABAPENTIN WHICH WAS CHANGED FROM 400 MG QID, TO 600 MG TID. SHE WAS SEEING NEL CRUZ, AUTOMOTIVE SERVICE CASHIER OUT [facility]. SHE LAST SEEN HER ON 04/14/20, BUT SHE DOES NOT WANT TO RETURN TO HER. SHE STATES THEY DO NOT GET ALONG . [facility] AND WILL BE ABLE TO SHE [...] in sk (more content not included)... Normal [facility] CORONAVIRUS 2019 BY PCRon SARS-CoV-2 (COVID-19) RNA MOISES+probe Ql (Unsp spec) Not detected Normal Not Detected [facility] Comment on above: Result Comment: . [...] patient management decisions. Fact sheet for providers: https://www.fda.gov/media/559712/download Fact sheet for patients: https://www.fda.gov/media/029179/download This test has received FDA Emergency Use Authorization (EUA) and has been verified by [facility] ([facility]). This test is only authorized for the duration of time that circumstances exist to justify the authorization of the emergency use of in vitro diagnostic tests for the detection of SARS-CoV-2 virus and/or diagnosis of COVID-19 infection under section 564(b)(1) of the Act, 21 U.S.C. 360bbb-3(b)(1), unless the authorization is terminated or revoked sooner. [facility] is certified under CLIA-88 as qualified to perform high complexity testing. Testing is performed in the [facility] laboratories [place] [address] [place] [address]. Performed By: #### C OV19 #### [facility] [address] [place] [address]. [place] [address] Covid 19 Resultson 1 SARS-CoV-2 (COVID-19) RNA [...] You may also be contacted by the [facility] to see if any of [...] or Naproxen (Aleve) can also be used. Vorr-pvi-izoxldw cough and cold medicines can be used according to the instructions on the package. Some qhqz-umf-aiccmmh medicines also contain acetaminophen. Make sure you [...] water are not available, use alcohol-based hand clinical counselor. Avoid touching your eyes, nose, and mouth [...] like ibuprofen (Motrin) (more content not included)... Normal [facility] CORONAVIRUS 2019 BY PCRon DATE OF SYMPTOM ONSET [YYYYMMDD]? [id number] [facility] Comment on above: Performed By: #### C OV19 #### [facility] [address] [place] [address] Lab Specimen Source Nasal, Nasopharyngeal [facility] Comment on above: Performed By: #### C OV19 #### [facility] [address] 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 Normal [facility] Provider Note - ED v2on 02-0 Provider Note - ED v2 Provider Note [...] was given a couple of days of [place] and ibuprofen 600, she was also given a prescription for amoxicillin. 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 CLINICAL IMPRESSION Diagnosis/Annotation: ED Dx Name:[place], dental Code:K08.89 Disposition: discharged Type: home ATTESTATION CRITICAL CARE TIME Is this a critically ill patient: no Electronic S (more content not included)... Normal [facility] Office Visit (Internal Medic ine)on 03-15-2020 Follow-up visit Diagnoses/Problems Assessed Bipolar depression (296.50) (F31.9) Generalized anxiety disorder with panic attacks (300.02,300.01) (F41.1,F41.0) Orders Bipolar depression Start: ARIPiprazole 10 MG Oral Tablet (Abilify); TAKE 1 TABLET DAILY Rx By: Nini Wolf; Dispense: 90 Days ; #:90 Tablet; Refill: 0;For: Bipolar depression; LISA = N; [facility]; Last Updated By: Vijay Antonio; 03/15/2020 8:37:14 AM Start: LORazepam 0.5 MG Oral Tablet; TAKE 1 TABLET Twice daily PRN anxiety Rx By: Nini Wolf; Dispense: 30 Days ; #:60 Tablet; Refill: 0;For: Bipolar depression; LISA = N; Verified Transmission to [facility] 6945; Msg to Pharmacy: [facility] REVIEWED. VOID SCRIPT 30 DAYS AFTER WRITTEN DATE; Last Updated By: System, [employer]; 03/15/2020 8:37:12 AM Patient Discussion/Summary F/U BEFORE FAX 2 WORK EXCUSE/LETTER TO [phone] Provider Impressions SHE IS REQUESTING A LETTER [...] consent was requested and obtained from LYLE BAILEY on this date, 03/15/2020 08:20 AM , for a telehealth visit. VIRTUAL/C/O PANIC ATTACKS/STATES SHE QUIT TAKING HER MEDICATION. History of Present Illness I have personally reviewed the OAR[facility] report for LYLE BAILEY. I have considered the risks of abuse, dependence, addiction and diversion. Is the patient prescribed a combination of a benzodiazepine and opioid? No. Last urine drug screening date/ordered today: 12/23/2019 Date of the last Controlled Substance Agreement: 12/23/2019 VIRTUAL APPOINTMENT BEING PERFORMED DUE TO COVID-19 (CORONAVIRUS) Presents today for F/U [facility] ER VISIT ON 03/11/20 AND [facility] ER ON 03/13/20 BOTH FOR PANIC [...] skin lumps. (more content not included)... Normal [facility] ACUTE TOXICOLOGY PANEL, [place] Don 03-14-2020 Acetaminophen [Mass/Vol] ug/mL Normal 10.0 - 30.0 [facility] Comment on above: Performed By: #### D RUBL #### [address] [address] Ethanol [Mass/Vol] 214 mg/dL Abnormal [facility] Comment on above: Result Comment: FOR MEDICAL USE ONLY. . REF VALUES <10 Performed By: #### D RUBL #### [address] [address] SALICYLATE <3 Normal - 20 [facility] Comment on above: Performed By: #### D RUBL #### [address] [address] Acetaminophen [Mass/Vol] <10.0 See Below [facility] Internal Medicine Work Phone: Comment on above: Reference Range: 10. 0 - 30.0 Ordering Provider: Briseida GONZALEZ [address] Ethanol [Mass/Vol] 214 mg/dL Abnormal [facility] Work Phone: Comment on above: FOR MEDICAL USE ONLY . .REF VALUES <10 Ordering Provider: Briseida GONZALEZ [address] Salicylates [Mass/Vol] mg/dL - [facility] Work Phone: Comment on above: Ordering Provider: Briseida GONZALEZ [address] ALCOHOLon 03-14-2020 Ethanol [Mass/Vol] 93 mg/dL Abnormal [facility] Comment on above: Result Comment: FOR MEDICAL USE ONLY. . REF VALUES <10 Performed By: #### C OV19 #### [facility] [address] [place] [address] Alcohol, Serumon 03-14-2020 Ethanol [Mass/Vol] 93 mg/dL Abnormal [facility] Work Phone: Comment on above: FOR MEDICAL USE ONLY . .REF VALUES <10 Ordering Provider: Briseida GONZALEZ [address] BASIC METABOLIC PANELon Anion gap [Moles/Vol] 15 mmol/L Normal 10 - 20 [facility] Comment on above: Performed By: #### B MP #### [address] [address] Calcium [Mass/Vol] 9.3 mg/dL Normal 8.6 - 10.3 [facility] Comment on above: Performed By: #### B MP #### [address] [address] Chloride [Moles/Vol] 108 mmol/L High 98 - 107 [facility] Comment on above: Performed By: #### B MP #### [address] [address] Creatinine [Mass/Vol] 0.56 mg/dL Normal 0.50 - 1.05 [facility] Comment on above: Performed By: #### B MP #### [address] [address] GFR- AM. >60 Normal >60 [facility] Comment on above: Result Comment: CALC ULATIONS OF ESTIMATED GFR ARE PERFORMED USING THE MDRD STUDY EQUATION FOR THE IDMS-TRACEABLE CREATININE METHODS. CLIN CHEM 2007;53:766-72 Performed By: #### B MP #### [place] [id number] GFR-NON AM. >60 Normal >60 [facility] Comment on above: Performed By: #### B MP #### [address] [address] Glucose [Mass/Vol] 111 mg/dL High 74 - 99 [facility] Comment on above: Performed By: #### B MP #### [address] [address] HCO3 (Bld) [Moles/Vol] 21 mmol/L Normal 21 - 32 [facility] Comment on above: Performed By: #### B MP #### [address] [address] Potassium [Moles/Vol] 3.9 mmol/L Normal 3.5 - 5.3 [facility] Comment on above: Performed By: #### B MP #### [address] [address] Sodium [Moles/Vol] 140 mmol/L Normal 136 - 145 [facility] Comment on above: Performed By: #### B MP #### [address] [address] Urea nitrogen [Mass/Vol] 5 mg/dL Low 6 - 23 [facility] Comment on above: Performed By: #### B MP #### [address] [address] CBC AND DIFFERENTIALon 03-14 Basophils (Bld) [#/Vol] 0.10 10*3/uL Normal 0.00 - 0.10 [facility] Comment on above: Performed By: #### C BCDF #### [place] [id number] Eosinophils (Bld) [#/Vol] 0.10 10*3/uL Normal 0.00 - 0.70 [facility] Comment on above: Performed By: #### C BCDF #### [place] [id number] Lymphocytes (Bld) [#/Vol] 2.80 10*3/uL Normal 1.20 - 4.80 [facility] Comment on above: Performed By: #### C BCDF #### [place] [id number] Monocytes (Bld) [#/Vol] 0.50 10*3/uL Normal 0.10 - 1.00 [facility] Comment on above: Performed By: #### C BCDF #### [place] [id number] Neutrophils (Bld) [#/Vol] 6.30 10*3/uL Normal 1.20 - 7.70 [facility] Comment on above: Result Comment: Perc ent differential counts (%) should be interpreted in the context of the absolute cell counts (cells/L). Performed By: #### C BCDF #### [place] [id number] NUCLEATED RBC 0.2 /[address] [facility] Comment on above: Performed By: #### C BCDF #### [place] [id number] Platelets (Bld) [#/Vol] 241 10*3/uL Normal 150 - 450 [facility] Comment on above: Performed By: #### C BCDF #### [address] [address] RBC 5.23 x10E12/L High 4.00 - 5.20 [facility] Comment on above: Performed By: #### C BCDF #### [address] [address] WBC (Bld) [#/Vol] 9.6 10*3/uL Normal 4.4 - 11.3 [facility] Comment on above: Performed By: #### C BCDF #### [address] [address] Complete Blood Count + Diffe rentialon 03-14-2020 Basophils (Bld) [#/Vol] 0.10 {x10E9/L} See Below [facility] Internal [facility] Work Phone: Comment on above: Reference Range: 0.0 0 - 0.10 Ordering Provider: Briseida GONZALEZ [address] Basophils/100 WBC (Bld) 0.6 % Normal 0.0 - 2.0 [facility] Work Phone: Comment on above: Ordering Provider: Briseida SMITHOCCHIO [address] Performed By: #### C BCDF #### [address] [address] Eosinophils (Bld) [#/Vol] 0.10 {x10E9/L} See Below [facility] Work Phone: Comment on above: Reference Range: 0.0 0 - 0.70 Ordering Provider: Briseida VANHIO [address] Eosinophils/100 WBC (Bld) 0.6 % Normal 0.0 - 6.0 [facility] Internal [facility] Work Phone: Comment on above: Ordering Provider: Briseida ORELLANA MANOCCHIO [address] Performed By: #### C BCDF #### [address] [address] Erythrocyte distribution width (RBC) [Ratio] 13.1 % Normal 11.5 - 14.5 [facility] Internal [facility] Work Phone: Comment on above: Reference Range: 11. 5 - 14.5 Ordering Provider: Briseida GONZALEZ [address] Performed By: #### C BCDF #### [address] [address] Hematocrit (Bld) [Volume fraction] 48.3 % High 36.0 - 46.0 [facility] Internal [facility] Work Phone: Comment on above: Reference Range: 36. 0 - 46.0 Ordering Provider: Briseida GONZALEZ [address] Performed By: #### C BCDF #### [address] [address] Hemoglobin (Bld) [Mass/Vol] 16.2 g/dL High 12.0 - 16.0 [facility] Work Phone: Comment on above: Reference Range: 12. 0 - 16.0 Ordering Provider: Briseida GONZALEZ [address] Performed By: #### C BCDF #### [address] [address] Lymphocytes (Bld) [#/Vol] 2.80 {x10E9/L} See Below [facility] Internal [facility] Work Phone: Comment on above: Reference Range: 1.2 0 - 4.80 Ordering Provider: Briseida GONZALEZ [address] Lymphocytes/100 WBC (Bld) 28.6 % Normal 13.0 - 44.0 [facility] Work Phone: Comment on above: Reference Range: 13. 0 - 44.0 Ordering Provider: Briseida GONZALEZ [address] Performed By: #### C BCDF #### [address] [address] MCHC (RBC) [Mass/Vol] 33.6 g/dL Normal 32.0 - 36.0 [facility] Internal [facility] Work Phone: Comment on above: Reference Range: 32. 0 - 36.0 Ordering Provider: Briseida GONZALEZ [address] Performed By: #### C BCDF #### [address] [address] MCV (RBC) [Entitic vol] 92 fL Normal 80 - 100 [facility] Work Phone: Comment on above: Ordering Provider: Briseida GONZALEZ [address] Performed By: #### C BCDF #### [address] [address] Monocytes (Bld) [#/Vol] 0.50 {x10E9/L} See Below [facility] Internal [facility] Work Phone: Comment on above: Reference Range: 0.1 0 - 1.00 Ordering Provider: Briseida GONZALEZ [address] Monocytes/100 WBC (Bld) 5.0 % Normal 2.0 - 10.0 [facility] Work Phone: Comment on above: Ordering Provider: Briseida GONZALEZ [address] Performed By: #### C BCDF #### [address] [address] Neutrophils (Bld) [#/Vol] 6.30 {x10E9/L} See Below [facility] Work Phone: Comment on above: Reference Range: 1.2 0 - 7.70 Percent differential counts (%) should be interpreted in the context of the absolute cell counts (cells/L). Ordering Provider: Briseida GONZALEZ [address] Neutrophils/100 WBC (Bld) 65.2 % Normal 40.0 - 80.0 [facility] Work Phone: Comment on above: Reference Range: 40. 0 - 80.0 Ordering Provider: Briseida GONZALEZ [address] Performed By: #### C BCDF #### [address] [address] Platelets (Bld) [#/Vol] 241 {x10E9/L} 150 - 450 [facility] Internal [facility] Work Phone: Comment on above: Ordering Provider: Briseida Gonzalez202 RBC (Bld) [#/Vol] 5.23 {x10E12/L} above high threshold See Below [facility] Work Phone: Comment on above: Reference Range: 4.0 0 - 5.20 Ordering Provider: Briseida MARROQUINMadeleine [address] WBC (Bld) [#/Vol] 0.2 {/100_WBC} [facility] Work Phone: Comment on above: Ordering Provider: Briseida GONZALEZ [address] WBC (Bld) [#/Vol] 9.6 {x10E9/L} 4.4 - 11.3 [facility] Work Phone: Comment on above: Ordering Provider: Briseida MARROQUINMadeleine [address] HEPATIC FUNCTION PANELon Albumin [Mass/Vol] 4.2 g/dL Normal 3.4 - 5.0 [facility] Comment on above: Performed By: #### H EPFP #### [address] [address] ALP [Catalytic activity/Vol] 83 U/L Normal 33 - 110 [facility] Comment on above: Performed By: #### H EPFP #### [address] [address] ALT [Catalytic activity/Vol] 69 U/L High 7 - 45 [facility] Comment on above: Result Comment: Tran ents treated with Sulfasalazine may generate falsely decreased results for ALT. Performed By: #### H EPFP #### [address] [address] AST [Catalytic activity/Vol] 70 U/L High 9 - 39 [facility] Comment on above: Performed By: #### H EPFP #### [address] [address] Bilirubin [Mass/Vol] 0.4 mg/dL Normal 0.0 - 1.2 [facility] Comment on above: Performed By: #### H EPFP #### [address] [address] Bilirubin.indirect [Mass/Vol] 0.1 mg/dL Normal 0.0 - 0.3 [facility] Comment on above: Performed By: #### H EPFP #### [address] [address] Protein [Mass/Vol] 7.1 g/dL Normal 6.4 - 8.2 [facility] Comment on above: Performed By: #### H EPFP #### [address] [address] Hepatic Function Panelon Albumin BCP dye [Mass/Vol] 4.2 g/dL 3.4 - 5.0 [facility] Internal [facility] Work Phone: Comment on above: Ordering Provider: Briseida GONZALEZ [address] ALP [Catalytic activity/Vol] 83 U/L 33 - 110 [facility] Internal [facility] Work Phone: Comment on above: Ordering Provider: Briseida GONZALEZ [address] ALT With P-5'-P [Catalytic activity/Vol] 69 U/L above high threshold 7 - 45 [facility] Internal [facility] Work Phone: Comment on above: Patients treated wit h Sulfasalazine may generate falsely decreased results for ALT. Ordering Provider: Briseida RHEACUCO GONZALEZ [address] AST With P-5'-P [Catalytic activity/Vol] 70 U/L above high threshold 9 - 39 [facility] Internal Medicine Work Phone: Comment on above: Ordering Provider: Briseida GONZALEZ 30877 Bilirubin [Mass/Vol] 0.4 mg/dL 0.0 - 1.2 [facility] Internal Medicine Work Phone: Comment on above: Ordering Provider: Briseida RHEACUCO GONZALEZ 43228 Bilirubin.direct [Mass/Vol] 0.1 mg/dL 0.0 - 0.3 [facility] Internal Medicine Work Phone: Comment on above: Ordering Provider: Briseida RHEACUCO GONZALEZ 82956 Protein [Mass/Vol] 7.1 g/dL 6.4 - 8.2 [facility] Internal Medicine Work Phone: Comment on above: Ordering Provider: Briseida GONZALEZ 57184 Metabolic Panelon 03-14-2020 Anion gap [Moles/Vol] 15 mmol/L 10 - 20 [facility] Internal Medicine Work Phone: Comment on above: Ordering Provider: Briseida GONZALEZ 27564 Calcium [Mass/Vol] 9.3 mg/dL 8.6 - 10.3 [facility] Internal Medicine Work Phone: Comment on above: Ordering Provider: Briseida GONZALEZ 96548 Chloride [Moles/Vol] 108 mmol/L above high threshold 98 - 107 [facility] Internal Medicine Work Phone: Comment on above: Ordering Provider: Briseida GONZALEZ 15001 CO2 [Moles/Vol] 21 mmol/L 21 - 32 [facility] Internal Medicine Work Phone: Comment on above: Ordering Provider: Briseida GONZALEZ 58372 Creatinine [Mass/Vol] 0.56 mg/dL See Below [facility] Internal Medicine Work Phone: Comment on above: Reference Range: 0.5 0 - 1.05 Ordering Provider: Briseida GONZALEZ 48127 Glucose [Mass/Vol] 111 mg/dL above high threshold 74 - 99 [facility] Medicine Work Phone: Comment on above: Ordering Provider: Briseida GONZALEZ 73020 Potassium [Moles/Vol] 3.9 mmol/L 3.5 - 5.3 [facility] Internal Medicine Work Phone: Comment on above: Ordering Provider: Briseida GONZALEZ 47053 Sodium [Moles/Vol] 140 mmol/L 136 - 145 [facility] Internal Medicine Work Phone: Comment on above: Ordering Provider: Briseida GONZALEZ 05425 Urea nitrogen [Mass/Vol] 5 mg/dL below low threshold 6 - 23 [facility] Internal Medicine Work Phone: Comment on above: Ordering Provider: Briseida GONZALEZ 01871 Otheron 03-14-2020 >60 >60 [facility] Internal Medicine Work Phone: Comment on above: CALCULATIONS OF JEREL MATED GFR ARE PERFORMED USING THE MDRD STUDY EQUATION FOR THE IDMS-TRACEABLE CREATININE METHODS. CLIN CHEM 2007;53:[id number] Ordering Provider: Briseida GONZALEZ 29649 DRUG SCREEN,URINEon 03-13-19 21 AMPHETAMINE SCREEN,U Negative Normal NEGATIVE [facility] Comment on above: Result Comment: CUTO FF LEVEL: 500 NG/ML Cross-reactivity has been reported with high concentrations of the following drugs: buproprion, chloroquine, chlorpromazine, ephedrine, mephentermine, fenfluramine, phentermine, phenylpropanolamine, pseudoephedrine, and propranolol. Performed By: #### D RUG3 #### [place] [address] BARBITURATES SCREEN,U Negative Normal NEGATIVE [facility] Comment on above: Result Comment: CUTO FF LEVEL: 200 NG/ML Performed By: #### D RUG3 #### [place] [address] BENZODIAZEPINES SCREEN,U Negative Normal NEGATIVE [facility] Comment on above: Result Comment: CUTO FF LEVEL: 200 NG/ML Performed By: #### D RUG3 #### [place] [address] CANNABINOIDS SCREEN,U Negative Normal NEGATIVE [facility] Comment on above: Result Comment: CUTO FF LEVEL: 50 NG/ML Performed By: #### D RUG3 #### [place] [address] COCAINE METABOLITE SCREEN,U Negative Normal NEGATIVE [facility] Comment on above: Result Comment: CUTO FF LEVEL: 150 NG/ML Performed By: #### D RUG3 #### [place] [address] DRUG SCREEN COMMENT SEE BELOW Normal [facility] Comment on above: Result Comment: Drug screen results are presumptive and should not be used to assess compliance with prescribed medication. Contact the performing [facility] laboratory to add-on definitive confirmatory testing [...] directors. Performed By: #### D RUG3 #### [place] [address] FENTANYL SCREEN,URINE Negative Normal NEGATIVE [facility] Comment on above: Result Comment: CUTO FF LEVEL: 1 NG/ML The performance characteristics of this test have been determined by the individual laboratory site where testing is performed. This test has not been cleared or approved by the FDA; however, the FDA has determined that such clearance is not necessary. Performed By: #### D RUG3 #### [place] [address] METHADONE SCREEN,U Negative Normal NEGATIVE [facility] Comment on above: Result Comment: CUTO FF LEVEL: 150 NG/ML The metabolite I-kzvdx-ysnideyjcavgcf (LAAM) is not detected by this method in concentrations that would be found in the urine of patients on LAAM therapy. Performed By: #### D RUG3 #### [place] [address] OPIATES SCREEN,U Negative Normal NEGATIVE [facility] Comment on above: Result Comment: CUTO FF LEVEL: 300 NG/ML The opiate screen does not detect fentanyl, meperidine, or tramadol. Oxycodone is not consistently detected (refer to Oxycodone Screen, Urine result). Performed By: #### D RUG3 #### [place] [address] OXYCODONE SCREEN,U Negative Normal NEGATIVE [facility] Comment on above: Result Comment: CUTO FF LEVEL: 100 NG/ML This test will accurately detect both oxycodone and oxymorphone. Performed By: #### D RUG3 #### [place] [address] PCP SCREEN,U Negative Normal NEGATIVE [facility] Comment on above: Result Comment: CUTO FF LEVEL: 25 NG/ML Cross-reactivity has been reported with dextromethorphan. Performed By: #### D RUG3 #### [address] [address] HCG,URINEon 03-13-2020 Beta HCG ( test) Ql (U) Negative Normal Negative [facility] Comment on above: Performed By: #### H CGU #### [address] [address] Otheron 03-13-2020 Amphetamines Screen Ql (U) Negative NEGATIVE [facility] Internal [facility] Work Phone: Comment on above: CUTOFF LEVEL: 500 NG /ML Cross-reactivity has been reported with high concentrations of the following drugs: buproprion, chloroquine, chlorpromazine, ephedrine, mephentermine, fenfluramine, phentermine, phenylpropanolamine, pseudoephedrine, and propranolol. Ordering Provider: Briseida Gonzalez202 Benzoylecgonine Screen Ql (U) Negative NEGATIVE [facility] Medicine Work Phone: Comment on above: CUTOFF LEVEL: 150 NG /ML Ordering Provider: Briseida Gonzalez202 Methadone Screen Ql (U) Negative NEGATIVE [facility] Medicine Work Phone: Comment on above: CUTOFF LEVEL: 150 NG /ML The metabolite A-aybpm-znfsdhmhypjooq (LAAM) is not detected by this method in concentrations that would be found in the urine of patients on LAAM therapy. Ordering Provider: Briseida Dugan Opiates Screen Ql (U) Negative NEGATIVE [facility] Internal Medicine Work Phone: Comment on above: CUTOFF LEVEL: 300 NG /ML The opiate screen does not detect fentanyl, meperidine, or tramadol. Oxycodone is not consistently detected (refer to Oxycodone Screen, Urine result). Ordering Provider: Briseida GONZALEZ [address] Oxycodone+Oxymorphone Screen Ql (U) Negative NEGATIVE [facility] Work Phone: Comment on above: CUTOFF LEVEL: 100 NG /ML This test will accurately detect both oxycodone and oxymorphone. Ordering Provider: Briseida GONZALEZ 067[address] SEE BELOW [facility] Internal Medicine Work Phone: Comment on above: Drug screen results are presumptive and should not be used to assess compliance with prescribed medication. Contact the performing [facility] laboratory to add-on definitive confirmatory testing [...] laboratory medical directors. Ordering Provider: Briseida GONZALEZ [address] Provider Note - ED v2on 02-13 Provider [...] same issue. She presents today here at [facility] as her anxiety continues to worsen. She [...] made to minimize errors. Minor errors in chief pilot may be present. Please call if questions.. 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 She will need this redrawn before she can be medically cleared. She has been medically cleared otherwise. Patient case transitioned to attending physician, Dr. Pierre CLINICAL IMPRESSION Diagnosis/Annotation: ED Dx Name:Anxiety Code:F41.9 Name:Alcohol intoxication Code:F10.929 Disp (more content not included)... Normal [facility] Risk Screen - Adult Emergenc yon 03-13-2020 Risk Screen - Adult Emergency Preferred Language: Preferred Language: Preferred Language for Discussing Health Care (patient/designee)Bogdan alonzo Advanced Directives: Advance Directive/DNRno Family Violence Adult: Abuse Screen: Are you or have you been threatened or abused physically, emotionally, or sexually by anyoneno Learning Assessment (Patient): Learning Assessment (Patient): Patient is Able to be Assessed for Learningyes Factors Influencing Readiness to Learnacuteness of illness Factors that Impact Ability to Learnnone Devices/Methods Used to Communicatenone Learning Preferencesindividual instruction Cultural Considerationsnone Developmental Considerationsnone Judaism Considerationsnone Learning Assessment (Other Learner): Learning Assessment [...] an injured patient at a Trauma Center ([facility]/[place] /[place]): no Electronic Signatures: Jeronimo Teixeira (RN) (Signed 13-Mar-2020 21:24) Authored: Preferred Language, Advanced Directives, Family Violence Adult, Learning Assessment (Patient), Learning Assessment (Other Learner), Pressure Injury/TB/Substance, Pressure Injury, CAGE Last Updated: 13-Mar-2020 21:24 by Jeronimo Teixeira (RN) [facility] Triage - EDon 03-13-2020 Triage - ED Quick Triage: Are You no Have You Given In The Last 6 Weeksno Are You Currently Breastfeedingno The patient and/or guardian verbally acknowledges placement for services into the following (when Urgent Care Service hours are operating):emergency department Chart Review: ARRIVAL INFORMATION Mode of Arrival: ambulance Agency Name: [facility] CHIEF COMPLAINT LYLE BAILEY is a Female patient with a chief [...] BMI (kg/m2): 34.510 Calculated BSA (m2) 1.93 [place] Coma Scale: Best Eye Response: (E4) spontaneous Best Motor Response: (M6) obeys commands Best Verbal Response: (V5) oriented [place] Score: 15 Cough lasting greater than 3 [...] Past Medical History Reviewedyes Electronic Signatures: Jeronimo Teixeira) (Signed 13-Mar-2020 21:23) Entered: Risk Screens, Pain, Chart Review, Scores, Past Medical History Authored: Quick Triage, Risk Screens, Pain, Chart Review, Scores, Past Medical History Last Updated: 13-Mar-2020 21:23 by Jeronimo Teixeira (LILY) Normal [facility] UA MICROSCOPICon 03-13-2020 RBC 1 /HPF Normal 0-5 [facility] Comment on above: Performed By: #### U AMIC #### [address] [address] WBC (U) [#/Vol] /uL Normal 0-5 [facility] Comment on above: Performed By: #### U AMIC #### [address] [address] URINALYSIS WITH CULTURE IF I NDICATEDon 03-13-2020 Appearance (U) CLEAR Normal CLEAR [facility] Comment on above: Performed By: #### C BCDF #### [address] [address] Bilirubin Ql (U) Negative Normal NEGATIVE [facility] Comment on above: Performed By: #### C BCDF #### [address] [address] Color (U) Colorless Normal STRAW,YELLOW [facility] Comment on above: Performed By: #### C BCDF #### [address] [address] Glucose Ql (U) Negative Normal NEGATIVE [facility] Comment on above: Performed By: #### C BCDF #### [address] [address] Hemoglobin Ql (U) SMALL(1+) Abnormal NEGATIVE [facility] Comment on above: Performed By: #### C BCDF #### [address] [address] Ketones Ql (U) Negative Normal NEGATIVE [facility] Comment on above: Performed By: #### C BCDF #### [address] [address] Leukocyte esterase Test strip Ql (U) Negative Normal NEGATIVE [facility] Comment on above: Performed By: #### C BCDF #### [address] [address] Nitrite Ql (U) Negative Normal NEGATIVE [facility] Comment on above: Performed By: #### C BCDF #### [address] [address] pH (U) 7.0 [pH] Normal 5.0 - 8.0 [facility] Comment on above: Performed By: #### C BCDF #### [address] [address] Protein Ql (U) Negative Normal NEGATIVE [facility] Comment on above: Performed By: #### C BCDF #### [address] [address] Specific gravity (U) [Rel density] 1.001 Low 1.005 - 1.035 [facility] Comment on above: Performed By: #### C BCDF #### [address] [address] Urobilinogen (U) [Mass/Vol] mg/dL Normal 0.0 - 1.9 [facility] Comment on above: Performed By: #### C BCDF #### [address] [address] Appearance (U) CLEAR CLEAR -[facility] Internal Medicine Work Phone: Comment on above: Ordering Provider: Briseida Gonzalez202 Color (U) Colorless See Below [facility] Internal Medicine Work Phone: Comment on above: Reference Range: STR AW,YELLOW Ordering Provider: Briseida GONZALEZ 83583 Glucose Ql (U) Negative NEGATIVE -[facility] Internal Medicine Work Phone: Comment on above: Ordering Provider: Briseida GONZALEZ 94464 Ketones Ql (U) Negative NEGATIVE -[facility] Internal Medicine Work Phone: Comment on above: Ordering Provider: Briseida GONZALEZ [address] Leukocyte esterase Test strip Ql (U) Negative NEGATIVE [facility] Medicine Work Phone: Comment on above: Ordering Provider: Briseida GONZALEZ 300[address] pH (U) 7.0 [pH] 5.0 - 8.0 [facility] Medicine Work Phone: Comment on above: Ordering Provider: Briseida GONZALEZ 54569 Protein (U) [Mass/Vol] Negative NEGATIVE [facility] Medicine Work Phone: Comment on above: Ordering Provider: Briseida GONZALEZ [address] RBC (U) [#/Vol] SMALL(1+) Abnormal NEGATIVE -[facility] Internal Medicine Work Phone: Comment on above: Ordering Provider: Briseida Dugan Specific gravity (U) [Rel density] 1.001 1 below low threshold See Below [facility] Internal Medicine Work Phone: Comment on above: Reference Range: 1.0 05 - 1.035 Ordering Provider: Briseida Gonzalez202 URINALYSIS WITH CULTURE IF INDICATED Negative NEGATIVE [facility] Internal [facility] Work Phone: Comment on above: CUTOFF LEVEL: 1 NG/M L The performance characteristics of this test have been determined by the individual laboratory site where testing is performed. This test has not been cleared or approved by the FDA; however, the FDA has determined that such clearance is not necessary. Ordering Provider: Briseida Dugan URINALYSIS WITH CULTURE IF INDICATED <2.0 0.0 - 1.9 [facility] Work Phone: Comment on above: Ordering Provider: Briseida Gonzalez202 Urinalysison 03-13-2020 Barbiturates Screen Ql (U) Negative NEGATIVE [facility] Work Phone: Comment on above: CUTOFF LEVEL: 200 NG /ML Ordering Provider: Briseida Dugan Benzodiazepines Ql (U) Negative NEGATIVE [facility] Work Phone: Comment on above: CUTOFF LEVEL: 200 NG /ML Ordering Provider: Briseida Dugan Cannabinoids Screen Ql (U) Negative NEGATIVE [facility] Work Phone: Comment on above: CUTOFF LEVEL: 50 NG/ ML Ordering Provider: Briseida Dugan Phencyclidine Ql (U) Negative NEGATIVE [facility] Internal Medicine Work Phone: Comment on above: CUTOFF LEVEL: 25 NG/ ML Cross-reactivity has been reported with dextromethorphan. Ordering Provider: Briseida Gonzalez202 Urinalysis, Microscopicon Urinalysis, Microscopic 1 {/HPF} 0-5 [facility] Work Phone: Comment on above: Ordering Provider: Briseida Gonzalez202 Urinalysis, Microscopic <1 0-5 [facility] Internal Medicine Work Phone: Comment on above: Ordering Provider: Briseida MARROQUINMadeleine Ritchie Urine Teston 03-13 HCG ( test) Ql (U) Negative Negative [facility] Internal Medicine Work Phone: Comment on above: Ordering Provider: Briseida MARROQUINMadeleine Ritchie Office Visit (Internal Medic ine)on 03-02-2020 Follow-up [...] Wolf; 03/02/2020 1:13:24 PM;Ordered; For:Hepatitis-C; Ordered By:Nathan Balrow; [id number], Serum; Specimen Source:Blood (BLD); Status:Active; Requested for:02Mar2020; [...] Test); Due: (more content not included)... Normal [facility] CORONAVIRUS 2019 BY PCRon SARS-CoV-2 (COVID-19) RNA MOISES+probe Ql (Unsp spec) Not detected Normal Not Detected [facility] Comment on above: Result Comment: . [...] patient management decisions. Fact sheet for providers: https://www.fda.gov/media/720190/download Fact sheet for patients: https://www.fda.gov/media/552798/download This test has received FDA Emergency Use Authorization (EUA) and has been verified by [facility] ([facility]). This test is only authorized for the duration of time that circumstances exist to justify the authorization of the emergency use of in vitro diagnostic tests for the detection of SARS-CoV-2 virus and/or diagnosis of COVID-19 infection under section 564(b)(1) of the Act, 21 U.S.C. 360bbb-3(b)(1), unless the authorization is terminated or revoked sooner. [facility] is certified under CLIA-88 as qualified to perform high complexity testing. Testing is performed in the [facility] laboratories located at [address] [place] [address]. This is a corrected result. Previous value was PENDING, verified at 02/24/2020 10:55 Performed By: #### C OV19 #### [facility] [address] [place] [address] Covid 19 Resultson 1 SARS-CoV-2 (COVID-19) RNA [...] You may also be contacted by the [facility] to see if any of [...] or Naproxen (Aleve) can also be used. Nxcx-abb-mqeeuuz cough and cold medicines can be used according to the instructions on the package. Some mvhe-jem-wzcseyo medicines also contain acetaminophen. Make sure you [...] water are not available, use alcohol-based hand clinical counselor. Avoid touching your eyes, nose, and mouth [...] like ibuprofen (Motrin) (more content not included)... [facility] CORONAVIRUS 2019 BY PCRon DATE OF SYMPTOM ONSET [YYYYMMDD]? [id number] [facility] Comment on above: Performed By: #### C OV19 #### [facility] [address] [place] [address] Lab Specimen Source Nasal, Nasopharyngeal [facility] Comment on above: Performed By: #### C OV19 #### [facility] [address] [place] [address] Coronavirus 2019 RNA by PCR, Symptomaticon 02-23-2020 When did you start to experience these symptoms [Date and time] [PhenX] [id number] 1 [facility] Internal Medicine Work Phone: Comment on above: Ordering Provider: Janny HALL [address] Coronavirus 2019 RNA by PCR, Symptomatic NOT DETECTED See Below [facility] Internal Medicine Work [...] make patient management decisions.Fact sheet for providers: https://www.fda.gov/media/270418/downloadFact sheet for patients: https://www.fda.gov/media/971570/downloadThis test has received FDA Emergency Use Authorization (EUA) and has been verified by [facility] ([facility]). This test is only authorized for the duration of time that circumstances exist to justify the authorization of the emergency use of in vitro diagnostic tests for the detection of SARS-CoV-2 virus and/or diagnosis of COVID-19 infection under section 564(b)(1) of the Act, 21 U.S.C. 360bbb-3(b)(1), unless the authorization is terminated or revoked sooner. [facility] is certified under CLIA-88 as qualified to perform high complexity testing. Testing is performed in the [facility] laboratories located at [address] [place] [address].This is a corrected result. 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 Normal 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 URINE CULTURE,BACTERIALon URINE CULTURE,BACTERIAL PATIENT: LYLE BAILEY LOCATION: [facility]#: [id number] : 89 AGE: SEX: F ORDERED BY: [...] DOSE DEPENDENT NS=NONSUSCEPTIBLE X=REPORTED IN ERROR Normal [facility] Comment on above: Performed By: #### C BCDF #### [place] [address] Office Visit (Internal Medic ine)on 01-20-2020 Follow-up visit Diagnoses/Problems Assessed Headache (784.0) (R51.9) Patient Discussion/Summary F/U BEFORE FAX WORK EXCUSE TO [phone] Chief Complaint An interactive audio and video telecommunication system which permits real time communications between the patient (at the originating site) and provider (at the distant site) was utilized to provide this telehealth service. Verbal consent was requested and obtained from LYLE BAILEY on this date, 01/20/2020 12:40 PM , [...] 4 TIMES DAILY Vitals Vital Signs Recorded: [id number] 09:42AM Tobacco Usea) Yes Patient encouraged to [...] (Unsp spec) Not detected Normal Not Detected [facility] Comment on above: Result Comment: . This [...] this test method. Fact sheet for providers: https://www.fda.gov/media/268882/download Fact sheet for patients: https://www.fda.gov/media/698560/download This test has received FDA Emergency Use Authorization [EUA] and has been verified by [facility] ([facility]). This test is only authorized for the duration of time that circumstances exist to justify the authorization of the emergency use of in vitro diagnostic tests for the detection of SARS-CoV-2 virus and/or diagnosis of COVID-19 infection under section 564(b)(1) of the Act, 21 U.S.C. 360bbb-3(b)(1), unless the authorization is terminated or revoked sooner. [facility] is certified under CLIA-88 as qualified to perform high complexity testing. Testing is performed in the [facility] laboratories located at [address] [place] [address]. Performed By: #### C OV19 #### [address] [place] [address] CORONAVIRUS 2019 BY PCRon Lab Specimen Source Nasal, Nasopharyngeal Normal [facility] Comment on above: Performed By: #### C OV19 #### [address] [place] [address] DATE OF SYMPTOM ONSET [YYYYMMDD]? [id number] Normal [facility] Comment on above: Performed By: #### C OV19 #### [place] [address] EMPLOYED IN HEALTHCARE? No Normal [facility] Comment on above: Performed By: #### C OV19 #### [facility] [address] [place] [address] HOSPITALIZED (OR PLANNED TO BE ADMITTED)? No Normal [facility] Comment on above: Performed By: #### C OV19 #### [facility] [address] [place] [address] ICU? No Normal [facility] Comment on above: Performed By: #### C OV19 #### [facility] [address] [place] [address] ? No Normal [facility] Comment on above: Performed By: #### C OV19 #### [facility] [address] [place] [address] [facility] No [facility] Comment on above: Performed By: #### C OV19 #### [facility] [address] [place] [address] SARS-CoV-2 (COVID-19) Ab IA Ql No [facility] Comment on above: Performed By: #### C OV19 #### [facility] [address] [place] [address] SYMPTOMATIC DEFINED BY CDC? Yes [facility] Comment on above: Performed By: #### C OV19 #### [facility] [address] [place] [address] Office Visit (Internal Medic ine)on 01-06-2020 Follow-up visit Diagnoses/Problems Assessed Flu-like symptoms (780.99) (R68.89) Contact with and (suspected) exposure to other viral communicable diseases (V01.79) (Z20.828) Orders Contact with and (suspected) exposure to other viral communicable diseases, Flu-like symptoms Coronavirus 2019 RNA by PCR, Symptomatic; Status:Active; Requested for:06Jan2020; Perform:Lab Services - Lab To Draw (Non-Blood Test); Due:05Apr2020;Ordered; For:Contact with and (suspected) exposure to other [...] Cigarette smoker; LISA = N; Sent To: [facility] Patient Discussion/Summary F/U BEFORE PER REQUEST WILL CALL SATURDAY FOR COVID RESULTS Provider Impressions SCHEDULED FOR [facility] COVID-19 TESTING. INSTRUCTED TO SELF QUARANTINE [...] consent was requested and obtained from LYLE BAILEY on this date, 01/06/2020 02:20 PM , for a telehealth visit. VIRTUAL VISIT; EXPOSURE TO POSTIVE COVID PERSON--BOYFRIEND TESTED POSITIVE ON Saturday01/04/20. SHE HAS TESTED NEGATIVE AT [facility] [place] ON 12/31/19--C/O SINUS CONGESTION/RUNNY NOSE, FATIGUE, LOSS [...] COMPLIANCEon 12-28-2019 6-ACETYLMORPHINE <25 Normal Cutoff <25 [facility] Comment on above: Performed By: #### C BCDF #### [place] [address] CODEINE <50 Normal Cutoff <50 [facility] Comment on above: Performed By: #### C BCDF #### [place] [address] EDDP,U <25 Normal Cutoff <25 [facility] Comment on above: Result Comment: The performance [...] testing. Performed By: #### C BCDF #### [place] [address] FENTANYL CONFIRM,U <2.5 Normal Cutoff<2.5 [facility] Comment on above: Performed By: #### C BCDF #### [place] [address] HYDROCODONE <25 Normal Cutoff <25 [facility] Comment on above: Performed By: #### C BCDF #### [place] [address] METHADONE,U <25 Normal Cutoff <25 [facility] Comment on above: Performed By: #### C BCDF #### [place] [address] NORFENTANYL CONFIRM,U <2.5 Normal Cutoff<2.5 [facility] Comment on above: Result Comment: The [...] testing. Performed By: #### C BCDF #### [address] [address] NOROXYCODONE <25 Normal Cutoff <25 [facility] Comment on above: Performed By: #### C BCDF #### [place] [id number] O-DESMETHYLTRAMADOL,U <50 Normal Cutoff <50 [facility] Comment on above: Result Comment: The [...] testing. Performed By: #### C BCDF #### [place] [address] OXYCODONE <25 Normal Cutoff <25 [facility] Comment on above: Performed By: #### C BCDF #### [place] [id number] OXYMORPHONE <25 Normal Cutoff <25 [facility] Comment on above: Result Comment: The performance [...] testing. Performed By: #### C BCDF #### [place] [id number] TRAMADOL CONFIRM,U <50 Normal Cutoff <50 [facility] Comment on above: Performed By: #### C BCDF #### [place] [id number] ZOLPIDEM METABOLITE[ZCA] ,U <25 Normal Cutoff <25 [facility] Comment on above: Result Comment: The performance [...] testing. Performed By: #### C BCDF #### [place] [address] ZOLPIDEM,URINE <25 Normal Cutoff <25 [facility] Comment on above: Performed By: #### C BCDF #### [place] [address] 7-AMINOCLONAZEPAM <25 Normal Cutoff <25 [facility] Comment on above: Performed By: #### C BCDF #### [place] [address] ALPHA-HYDROXYALPRAZOL AM <25 Normal Cutoff <25 [facility] Comment on above: Performed By: #### C BCDF #### [place] [address] ALPHA-HYDROXYMIDAZOLA M <25 Normal Cutoff <25 [facility] Comment on above: Performed By: #### C BCDF #### [place] [address] ALPRAZOLAM <25 Normal Cutoff <25 [facility] Comment on above: Performed By: #### C BCDF #### [place] [address] CHLORDIAZEPOXIDE <25 Normal Cutoff <25 [facility] Comment on above: Performed By: #### C BCDF #### [place] [address] CLONAZEPAM <25 Normal Cutoff <25 [facility] Comment on above: Performed By: #### C BCDF #### [place] [address] DIAZEPAM <25 Normal Cutoff <25 [facility] Comment on above: Performed By: #### C BCDF #### [place] [address] HYDROMORPHONE <25 Normal Cutoff <25 [facility] Comment on above: Performed By: #### C BCDF #### [place] [address] LORAZEPAM <25 Normal Cutoff <25 [facility] Comment on above: Performed By: #### C BCDF #### [place] [address] MIDAZOLAM <25 Normal Cutoff <25 [facility] Comment on above: Performed By: #### C BCDF #### [place] [address] MORPHINE <50 Normal Cutoff <50 [facility] Comment on above: Performed By: #### C BCDF #### [place] [address] NORDIAZEPAM <25 Normal Cutoff <25 [facility] Comment on above: Performed By: #### C BCDF #### [place] [address] NORHYDROCODONE <25 Normal Cutoff <25 [facility] Comment on above: Performed By: #### C BCDF #### [place] [address] OXAZEPAM <25 Normal Cutoff <25 [facility] Comment on above: Performed By: #### C BCDF #### [place] [address] TEMAZEPAM <25 Normal Cutoff <25 [facility] Comment on above: Result Comment: The performance [...] testing. Performed By: #### C BCDF #### [place] [address] OPIATE/OPIOID/BENZO EXTENDED PRESCRIPTION COMPLIANCEon 12-24-2019 Specific gravity (U) [Rel density] 1.0060 Normal Valid 1.0020-1.[address] [facility] Comment on above: Performed By: #### C BCDF #### [place] [address] AMPHETAMINE SCREEN,U Negative Normal NEGATIVE [facility] Comment on above: Result Comment: CUTO FF LEVEL: 500 NG/ML Cross-reactivity has been reported with high concentrations of the following drugs: buproprion, chloroquine, chlorpromazine, ephedrine, mephentermine, fenfluramine, phentermine, phenylpropanolamine, pseudoephedrine, and propranolol. Performed By: #### C BCDF #### [place] [address] BARBITURATES SCREEN,U Negative Normal NEGATIVE [facility] Comment on above: Result Comment: CUTO FF LEVEL: 200 NG/ML Performed By: #### C BCDF #### [place] [address] CANNABINOIDS SCREEN,U Negative Normal NEGATIVE [facility] Comment on above: Result Comment: CUTO FF LEVEL: 50 NG/ML Performed By: #### C BCDF #### [place] [address] COCAINE METABOLITE SCREEN,U Negative Normal NEGATIVE [facility] Comment on above: Result Comment: CUTO FF LEVEL: 150 NG/ML Performed By: #### C BCDF #### [place] [address] Creatinine [Mass/Vol] 19.9 mg/dL Abnormal [facility] Comment on above: Result Comment: A ur ine creatinine result >= 20 mg/dL is considered valid without suspicion of dilution. Samples with results below this range will automatically reflex to specific gravity testing to verify specimen integrity. Performed By: #### C BCDF #### [place] [address] DRUG SCREEN COMMENT. SEE BELOW [facility] Comment on above: Result Comment: Drug screen [...] directors. Performed By: #### C BCDF #### [address] [address] PCP SCREEN,U Negative Normal NEGATIVE [facility] Comment on above: Result Comment: CUTO FF LEVEL: 25 NG/ML Cross-reactivity has been reported with dextromethorphan. Performed By: #### C BCDF #### [address] [address] Office Visit (Internal Medic ine)on 12-23-2019 Follow-up [...] attacks; LISA = N; Verified Transmission to [facility]; Msg to Pharmacy: OARRS REVIEWED. VOID SCRIPT 30 DAYS AFTER WRITTEN DATE.; Last Updated By: Vijay Antnoio; 12/23/2019 11:38:29 AM Medication management OPIATE/OPIOID/BENZO [EXTENDED] PRESCRIPTION COMPLIANCE; Status:Active - Retrospective Authorization; Requested for:23Dec2019; Perform:Lab Services - Lab To Draw (Non-Blood Test); Due:28Dec2019; Last Updated By:Debra Bland; 12/23/2019 10:15:01 AM;Ordered; For:Medication management; Ordered By:Nini Wolf; CONTROLLED MEDICATION AGREEMENT ; every 1 year; Next 22Dec2020; Status:Active For: 'Medication management'Ordered By: 'PRIMARY ASHL03 RN1, [id number]' URINE DRUG TOXICOLOGY ; every 1 year; Next 22Dec2020; Status:Active For: 'Medication management'Ordered By: 'PRIMARY ASHL03 RN1, [id number]' Restless legs syndrome Renew: Gabapentin 400 MG Oral Capsule; TAKE 1 CAPSULE 4 TIMES DAILY Rx By: Nini Wolf; Dispense: 30 Days ; #:120 Capsule; Refill: 2;For: Restless legs syndrome; LISA = N; Verified Transmission to [facility]; Msg to Pharmacy: OARRS REVIEWED. VOID SCRIPT [...] consent was requested and obtained from LYLE BAILEY on this date, 12/23/2019 08:20 AM , for a telehealth visit. VIRTUAL VISIT; 1 MO F/U CLONAZEPAM AND GABAPENTIN-DISCUSS POSSIBLY INCREASING THE GABAPENTIN DUE TO C/O RLS GETTING WORSE--SHE IS BACK TO WORK NOW AND NOTICED IT GETTING WORSE AT NIGHT. DOES NEED TO SIGN A NEW CONTROLLED MED AGREEMENT History of Present Illness I have personally reviewed the OARRS report for LYLE BAILEY. I have considered the risks of abuse, [...] of str (more content not included)... [facility] Office Visit (Internal Medic ine)on 11-03-2019 Follow-up [...] attacks; LISA = N; Verified Transmission to [facility]; Msg to Pharmacy: OARRS REVIEWED. VOID SCRIPT 30 DAYS AFTER WRITTEN DATE. DO NOT FILL UNTIL 11/21/2019; Last Updated By: [employer]; 11/03/2019 1:42:47 PM Restless legs syndrome Renew: Gabapentin 400 MG Oral Capsule; TAKE 1 CAPSULE 3 TIMES DAILY Rx By: Nini Wolf; Dispense: 30 Days ; #:90 Capsule; Refill: 2;For: Restless legs syndrome; LISA = N; Verified Transmission to [facility]; Msg to Pharmacy: OARRS REVIEWED. VOID SCRIPT AND REFILLS 90 DAYS AFTER PRESCRIBING DATE. DO NOT FILL UNTIL 11/08/2019; Last Updated By: [employer]; 11/03/2019 1:43:02 PM Patient Discussion/Summary F/U FIRST [...] causing COVID-19 illness, and in accordance with [facility] guidelines which encourage social distancing, I have [...] consent was requested and obtained from LYLE BAILEY on this date, 11/03/2019 01:20 PM , for a telehealth visit. VIRTUAL VISIT - 3 WEEK F/U MED CHECK. PATIENT HAS BEEN DOING WELL WITH ABILIFY DOSE INCREASE AND USING KLONOPIN PRN. PATIENT IS CURRENTLY ON A WAITING LIST TO SEE PSYCH IN [place], [place]. DUE FOR GABAPENTIN REFILL SOON. History of Present Illness I have personally reviewed the OARRS report for LYLE BAILEY. I have considered the risks of abuse, [...] no numbness, (more content not included)... [facility] Office Visit (Internal Medic ine)on 10-23-2019 Follow-up visit Diagnoses/Problems Assessed Generalized anxiety disorder with panic attacks (300.02,300.01) (F41.1,F41.0) Bipolar depression (296.50) (F31.9) Orders Generalized anxiety disorder with panic attacks Renew: clonazePAM 0.5 MG Oral Tablet; TAKE 1 TABLET EVERY 12 HOURS NEEDED Rx By: Nini Wlof; Dispense: 30 Days ; #:60 Tablet; Refill: 0;For: Generalized anxiety disorder with panic attacks; LISA = N; Sent To: [facility]; Msg to Pharmacy: OARRS REVIEWED. VOID SCRIPT 30 DAYS AFTER WRITTEN DATE; Last Updated By: System, [employer]; 10/23/2019 12:31:10 PM Patient Discussion/Summary F/U BEFORE [...] causing COVID-19 illness, and in accordance with [facility] guidelines which encourage social distancing, I have [...] consent was requested and obtained from LYLE BAILEY on this date, 10/23/2019 01:00 PM , [...] (305.53) (Z87 (more content not included)... [facility] Office Visit (Internal Medic ine)on 10-13-2019 Follow-up visit Diagnoses/Problems Assessed Bipolar depression (296.50) (F31.9) Hospital discharge follow-up (V67.59) (Z09) Generalized anxiety disorder with panic attacks (300.02,300.01) (F41.1,F41.0) Orders Bipolar depression Renew: ARIPiprazole 20 MG Oral Tablet; TAKE 1 TABLET DAILY Rx By: Nini Wolf; Dispense: 90 Days ; #:90 Tablet; Refill: 0;For: Bipolar depression; LISA = N; Verified Transmission to [facility]; Last Updated By: [employer]; 10/13/2019 1:15:20 PM Bipolar depression, Generalized anxiety disorder with panic attacks Adult Psychiatry Referral Evaluation and Treatment Evaluate AND Treat Status: Hold For - Scheduling Requested for: 13Oct2019 Ordered;For: Bipolar depression, Generalized anxiety disorder with panic attacks; Ordered By: Nini Wolf Performed: Order Comments: [facility]. KARTIK STEVENS Due: 11Jan2020 Generalized anxiety disorder with panic attacks Start: clonazePAM 0.25 MG Oral Tablet Disintegrating; PLACE 1 TABLET ON TONGUE AND ALLOW TO DISSOLVE TWICE DAILY NEEDED Rx By: Nini Wolf; Dispense: 15 Days ; #:30 Tablet; Refill: 0;For: Generalized anxiety disorder with panic attacks; LISA = N; Verified Transmission to [facility]; Msg to Pharmacy: OARRS REVIEWED. VOID SCRIPT 30 DAYS AFTER WRITTEN DATE. AVOID ALCOHOL WITH USAGE; Last Updated By: Viajy Antonio; 10/13/2019 1:14:11 PM Patient Discussion/Summary F/U 3 WEEKS MED CHECK REFER TO [facility] KARTIK STEVENS Provider Impressions WILL INCREASE ABILIFY TO 20 [...] causing COVID-19 illness, and in accordance with [facility] guidelines which encourage social distancing, I have [...] consent was requested and obtained from LYLE BAILEY on this date, 10/13/2019 02:40 PM , for a telehealth visit. VIRITUAL VISIT; [facility] [place] ED F/U-ANXIETY; C/O HAVING PANIC ATTACKS X 3 A WEEK-SHE ISN'T WANTING TO LEAVE HER HOUSE ANYMORE. History of Present IllnessVIRTUAL APPOINTMENT BEING PERFORMED DUE TO COVID-19 (CORONAVIRUS) Presents today for [facility] SAGE ER F/U FOR ANXIETY/PANIC ATTACK. C/O INCREASED ANXIETY X 2 MONTHS modifying factors consists of WAS KEPT OVER NIGHT FOR OBSERVATION. REQUESTING REFERRAL TO [facility]. STATES SHE HAS A 3 MONTH WAIT [...] and pigmentat (more content not included)... [facility] Office Visit (Internal Medic ine)on 09-08-2019 Follow-up visit Diagnoses/Problems Assessed Encounter for screening for other viral diseases (V73.89) (Z11.59) Flu-like symptoms (780.99) (R68.89) Contact with and (suspected) exposure to other viral communicable diseases (V01.79) (Z20.828) Patient Discussion/Summary F/U BEFORE Provider Impressions SCHEDULED FOR [facility] COVID-19 TESTING TODAY AT 1100. INSTRUCTED [...] consent was requested and obtained from LYLE BAILEY on this date, 09/08/2019 08:20 AM , [...] WAS SENT HOME FROM WORK. WORKS AT [employer] IN [place] AND THEY REFUSE TO LET HER BACK [...] ReconstitutedINJECT INTRAMUSCULARLY DIRECTED. Vitals Vital Signs Recorded: [id number] 08:08AM Fall Screeninga) No falls within the last year Physical Exam Psychiatric Orientation: Oriented to person, place, and time. Time Time Spent With Patient: 11 minutes of which greater than 50 percent was spent counseling and or coordinating care. Signatures Electronically signed by : MOHAN Mcmillan; Sep 08 2019 8:18AM EST (Author) [facility] Office Visit (Internal Medic ine)on 09-03-2019 Follow-up visit Diagnoses/Problems Assessed Generalized anxiety disorder with panic attacks (300.02,300.01) (F41.1,F41.0) Bipolar depression (296.50) (F31.9) Orders Bipolar depression Renew: ARIPiprazole 15 MG Oral Tablet; TAKE 1 TABLET DAILY Rx By: Nini Wolf; Dispense: 90 Days ; #:90 Tablet; Refill: 3;For: Bipolar depression; LISA = N; [facility] Patient Discussion/Summary F/U AROUND November OR A LITTLE SOONER FOR GABAPENTIN REFILL Chief Complaint An interactive audio and video telecommunication system which permits real time communications between the patient (at the originating site) and provider (at the distant site) was utilized to provide this telehealth service. Verbal consent was requested and obtained from LYLE BAILEY on this date, 09/03/2019 01:00 PM , [...] Bipolar depression; LISA = N; Sent To: [facility]; Last Updated By: [employer]; 08/13/2019 9:21:58 AM Generalized anxiety disorder with panic attacks Renew: busPIRone HCl - 10 MG Oral Tablet; TAKE 2 TABLETS TWICE DAILY Rx By: Nini Wolf; Dispense: 90 Days ; #:360 Tablet; Refill: 0;For: Generalized anxiety disorder with panic attacks; LISA = N; Sent To: [facility] Restless legs syndrome Renew: Gabapentin 400 MG Oral Capsule; TAKE 1 CAPSULE 3 TIMES DAILY Rx By: Nini Wolf; Dispense: 30 Days ; #:90 Capsule; Refill: 2;For: Restless legs syndrome; LISA = N; Sent To: [facility]; Msg to Pharmacy: OARRS REVIEWED. VOID SCRIPT AND REFILLS 90 DAYS AFTER PRESCRIBING DATE; Last Updated By: [employer]; 08/13/2019 9:16:03 AM Patient Discussion/Summary F/U 3 [...] personally reviewed the OARRS report for LYLE BAILEY. I have considered the risks of abuse, [...] 10 MG TID PRN HEP C- [facility] Review of Systems Constitutional: not feeling poorly, [...] 4 MO (more content not included)... [facility] Clinical Summary-RTFon 06-21 Clinical Summary-RTF Clinical Summary Patient Details for LYLE BAILEY Preferred Name Female Sex [id number] [place], [address] Address [place] Language 1990 Born White Race Non- or [...] To Be Done: 22 Jun 2019 ? Frsow-1-Tizxuxwnwcy, Serum; To Be Done: 22 Jun 2019 [...] for Visit Health Issues Reviewed : [facility] Initial Visit (Gastroenterol ogy)on 06-22-2019 Initial Visit [...] (Blood Test); Due:20Sep2019;Ordered; For:Hepatitis-C; Ordered By:Nathan Barlow; Qgsnt-2-Kyaglruzczc, Serum; Specimen Source:Blood (BLD); Status:Active; Requested for:22Jun2019; [...] Liver; Status:Hold For - Scheduling; Requested for:22Jun2019; Perform:[facility]; Due:20Sep2019;Ordered; For:Hepatitis-C; Ordered By:Nathan [...] of hepatitis C and ways [facility] Visit (Internal Medic ine)on 06-10-2019 [...] depression; LISA = N; Verified Transmission to [facility]; Last Updated By: Vijay Antonio; 05/20/2019 4:28:24 PM Medication management CONTROLLED MEDICATION AGREEMENT ; every 1 year; Next 16Jan2020; Status:Active For: 'Medication management'Ordered By: 'PRIMARY ASHL03 RN1, [id number]' URINE DRUG TOXICOLOGY ; every 1 year; Next 18Feb2020; Status:Active For: 'Medication management'Ordered By: 'PRIMARY ASHL03 RN1, [id number]' Restless legs syndrome Renew: Gabapentin 400 MG Oral Capsule; TAKE 1 CAPSULE 3 TIMES DAILY Rx By: Nini Wolf; Dispense: 30 Days ; #:90 Capsule; Refill: 2; For: Restless legs syndrome; LISA = N; Verified Transmission to [facility]; Msg to Pharmacy: OARRS REVIEWED. VOID SCRIPT AND REFILLS 90 DAYS AFTER PRESCRIBING DATE; Last Updated By: Vijay Antonio; 05/20/2019 4:28:25 PM SocHx: Cigarette smoker Start: Albuterol Sulfate HFA 108 (90 Base) MCG/ACT Inhalation Aerosol Solution; INHALE 2 PUFFS Every 6 hours PRN SOB/WHEEZING Rx By: Nini Wolf; Dispense: 30 Days ; #:1 X 6.7 GM Inhaler; Refill: 5; For: SocHx: Cigarette smoker; LISA = N; Verified Transmission to [facility]; Last Updated By: Vijay Antonio; 05/20/2019 4:28:23 PM Tobacco Use Screening; Status:Complete; Done: 20May2019 Perform:Not Applicable;Ordered; For:SocHx: Cigarette smoker; Ordered By:Nini Wolf; Start: Chantix 1 MG Oral Tablet; Take 1 tablet twice daily Rx By: Nini Wolf; Dispense: 30 Days ; #:60 Tablet; Refill: 4; For: SocHx: Cigarette smoker; LISA = N; Verified Transmission to [facility]; Msg to Pharmacy: TO START AFTER STARTER PACK; Last Updated By: Vijay Antonio; 05/20/2019 4:28:22 PM Start: Chantix Starting Month Lewis 0.5 MG X 11 AND 1 MG X 42 Oral Tablet; TAKE DIRECTED PER PACKAGE INSTRUCTIONS Rx By: Nini Wolf; Dispense: 0 Days ; #:1 X 53 Tablet Pack; Refill: 0; For: SocHx: Cigarette smoker; LISA = N; Verified Transmission to [facility]; Last Updated By: Paco [employer]; 05/20/2019 4:28:24 PM Patient Discussion/Summary F/U 3 [...] spent 10 (more content not included)... [facility] Metabolic Panelon 02-17-2019 Creatinine [Mass/Vol] 88.3 mg/dL [facility] Work Phone: Comment on above: A urine creatinine r esult >= 20 mg/dL is considered valid without suspicion of dilution. Samples with results below this range will automatically reflex to specific gravity testing to verify specimen integrity. Otheron 02-17-2019 1-Hydroxymidazolam Confirm (U) [Mass/Vol] <25 Cutoff <25 -[facility] Medicine Work Phone: 9-Rqcvhysfdw-0,5-Dime thyl-3,3-Diphenylpyrr olidine (EDDP) Confirm (U) [Mass/Vol] <25 Cutoff <25 -[facility] Work Phone: [...] (6-JACLYN) Confirm (U) [Mass/Vol] <25 Cutoff <25 -[facility] Internal [facility] Work Phone: 7-Aminoclonazepam Confirm (U) [Mass/Vol] <25 Cutoff <25 [facility] Internal [facility] Work Phone: Alpha hydroxyalprazolam Confirm (U) [Mass/Vol] <25 Cutoff <25 [facility] Internal [facility] Work Phone: Alprazolam Confirm (U) [Mass/Vol] <25 Cutoff <25 -[facility] Internal [facility] Work Phone: Amphetamines Screen Ql (U) Negative NEGATIVE [facility] Internal [facility] Work Phone: Comment on above: CUTOFF LEVEL: 500 NG /ML Cross-reactivity has been reported with high concentrations of the following drugs: buproprion, chloroquine, chlorpromazine, ephedrine, mephentermine, fenfluramine, phentermine, phenylpropanolamine, pseudoephedrine, and propranolol. Benzoylecgonine Screen Ql (U) Negative NEGATIVE [facility] Internal [facility] Work Phone: Comment on above: CUTOFF LEVEL: 150 NG /ML Chlordiazepoxide Confirm (U) [Mass/Vol] <25 Cutoff <25 [facility] Internal [facility] Work Phone: Clonazepam Confirm (U) [Mass/Vol] <25 Cutoff <25 -[facility] Work Phone: Codeine Confirm (U) [Mass/Vol] <25 Cutoff <25 -[facility] Internal [facility] Work Phone: Diazepam Confirm (U) [Mass/Vol] <25 Cutoff <25 -[facility] Internal [facility] Work Phone: Fentanyl Confirm (U) [Mass/Vol] <2.5 Cutoff<2.5 -[facility] Internal [facility] Work Phone: Hydrocodone Confirm (U) [Mass/Vol] <25 Cutoff <25 -[facility] Internal [facility] Work Phone: Hydromorphone Confirm (U) [Mass/Vol] <25 Cutoff <25 -[facility] Internal [facility] Work Phone: Lorazepam Confirm (U) [Mass/Vol] <25 Cutoff <25 -[facility] Internal [facility] Work Phone: Methadone Confirm (U) [Mass/Vol] <25 Cutoff <25 [facility] Internal [facility] Work Phone: Midazolam Confirm (U) [Mass/Vol] <25 Cutoff <25 [facility] Internal [facility] Work Phone: Morphine Confirm (U) [Mass/Vol] <25 Cutoff <25 [facility] Internal [facility] Work Phone: Nordiazepam Confirm (U) [Mass/Vol] <25 Cutoff <25 -[facility] Internal [facility] Work Phone: Norfentanyl Confirm (U) [Mass/Vol] <2.5 Cutoff<2.5 -[facility] Internal [facility] Work Phone: Comment on above: [...] Norhydrocodone Confirm (U) [Mass/Vol] <25 Cutoff <25 MP-[facility] Internal [facility] Work Phone: Noroxycodone Confirm (U) [Mass/Vol] <25 Cutoff <25 [facility] Internal [facility] Work Phone: Nortramadol (U) [Mass/Vol] <25 Cutoff <25 [facility] Internal [facility] Work Phone: Comment on above: [...] Oxazepam Confirm (U) [Mass/Vol] <25 Cutoff <25 [facility] Internal [facility] Work Phone: Oxycodone Confirm (U) [Mass/Vol] <25 Cutoff <25 [facility] Internal [facility] Work Phone: Oxymorphone Confirm (U) [Mass/Vol] <25 Cutoff <25 [facility] Work Phone: Comment on above: The [...] Temazepam Confirm (U) [Mass/Vol] <25 Cutoff <25 [facility] Internal [facility] Work Phone: Comment on above: [...] Tramadol Confirm (U) [Mass/Vol] <25 Cutoff <25 [facility] Work Phone: Zolpidem (U) [Mass/Vol] <25 Cutoff <25 [facility] Work Phone: SEE BELOW [facility] Work Phone: Comment on above: Drug [...] the laboratory medical directors. <25 Cutoff <25 [facility] Work Phone: Comment on above: [...] 02-17-2019 Barbiturates Screen Ql (U) Negative NEGATIVE [facility] Work Phone: Comment on above: CUTOFF LEVEL: 200 NG /ML Cannabinoids Screen Ql (U) Negative NEGATIVE [facility] Work Phone: Comment on above: CUTOFF LEVEL: 50 NG/ ML Phencyclidine Ql (U) Negative NEGATIVE -[facility] Internal Medicine Work Phone: Comment on above: CUTOFF LEVEL: 25 NG/ ML Cross-reactivity has been reported with dextromethorphan. Auto Diffon 11-14-2018 Basophils (Bld) [#/Vol] 0.1 E3/mcL Normal 0.0-0.2 [facility] Comment on above: Order Comment: Order Added by Discern Expert. Performed By: #### 2 [id number] #### FABBY RemHemo [address] [place] [address] Basophils/100 WBC (Bld) 1.0 % Normal 0.0-2.0 [facility] Comment on above: Order Comment: Order Added by Discern Expert. Performed By: #### 2 [id number] #### FABBY RemHemo [address] [place] [address] Eos Absolute 0.1 E3/mcL Normal 0.0-0.7 [facility] Comment on above: Order Comment: Order Added by Discern Expert. Performed By: #### 2 [id number] #### FABBY RemHemo [address] [place] [address] Eosinophils/100 WBC (Bld) 1.2 % Normal 0.0-11.0 [facility] Comment on above: Order Comment: Order Added by Discern Expert. Performed By: #### 2 [id number] #### FABBY RemHemo [address] [place] [address] Lymphocytes (Bld) [#/Vol] 3.2 E3/mcL Normal 1.2-3.4 [facility] Comment on above: Order Comment: Order Added by Discern Expert. Performed By: #### 2 [id number] #### FABBY RemHemo [address] [place] [address] Lymphocytes/100 WBC (Bld) 36.5 % Normal 20.0-55.0 [facility] Comment on above: Order Comment: Order Added by Discern Expert. Performed By: #### 2 [id number] #### FABBY RemHemo [address] [place] [address] Marathon Absolute 0.5 E3/mcL Normal 0.0-0.7 [facility] Comment on above: Order Comment: Order Added by Discern Expert. Performed By: #### 2 [id number] #### FABBY RemHemo [address] [place] [address] Monocytes/100 WBC (Bld) 5.7 % Normal 0.0-10.0 [facility] Comment on above: Order Comment: Order Added by Discern Expert. Performed By: #### 2 [id number] #### FABBY RemHemo [address] [place] [id number] Neutro Absolute 4.9 E3/mcL Normal 1.4-6.5 [facility] Comment on above: Order Comment: Order Added by Discern Expert. Performed By: #### 2 [id number] #### FABBY RemHemo [facility] [place] [id number] Neutro Auto 55.6 % Normal 37.0-75.0 [facility] Comment on above: Order Comment: Order Added by Discern Expert. Performed By: #### 2 [id number] #### FABBY RemHemo [facility] [place] [address] BhCG Qualon 11-14-2018 Beta hCG Ql Negative Normal Negative [facility] Comment on above: Performed By: #### 2 [id number] #### FABBY Chemistry Manual Subsection [address] [place] [address] CBC w/ Auto Diffon 9 Erythrocyte distribution width (RBC) [Ratio] 14.5 % Normal 11.5-14.5 [facility] Comment on above: Performed By: #### 2 [id number] #### FABBY RemHemo [address] [place] [address] Hematocrit (Bld) [Volume fraction] 44.6 % Normal 36.0-48.0 [facility] Comment on above: Performed By: #### 2 [id number] #### FABBY RemHemo [address] [place] [id number] Hemoglobin (Bld) [Mass/Vol] 15.3 g/dL Normal 12.0-16.0 [facility] Comment on above: Performed By: #### 2 [id number] #### FABBY RemHemo [facility] [place] [id number] MCH (RBC) [Entitic mass] 31.3 pg High 27.0-31.0 [facility] Comment on above: Performed By: #### 2 [id number] #### FABBY RemHemo [facility] [place] [id number] MCHC (RBC) [Mass/Vol] 34.2 g/dL Normal 33.0-37.[address] [facility] Comment on above: Performed By: #### 2 [id number] #### FABBY ReederHemo [address] [place] [address] MCV (RBC) [Entitic vol] 91.4 fL Normal 78.0-100.0 [facility] Comment on above: Performed By: #### 2 [id number] #### FABBY LilliHemo [address] [place] [address] Platelet mean volume (Bld) [Entitic vol] 8.4 fL Normal 7.4-11.0 [facility] Comment on above: Performed By: #### 2 [id number] #### FABBY LilliHemo [facility] [place] [address] Platelets (Bld) [#/Vol] 285 E3/mcL Normal 130-400 [facility] Comment on above: Performed By: #### 2 [id number] #### FABBY LilliHemo [facility] [place] [address] RBC (Bld) [#/Vol] 4.88 E6/mcL Normal 3.90-5.40 [facility] Comment on above: Performed By: #### 2 [id number] #### FABBY ReederHemo [facility] [place] [address] WBC (Bld) [#/Vol] 8.8 E3/mcL Normal 3.6-11.0 [facility] Comment on above: Performed By: #### 2 [id number] #### FABBY RemHemo [address] [place] [address] CMPon 11-14-2018 Albumin [Mass/Vol] 4.4 g/dL Normal 3.4-5.0 [facility] Comment on above: Performed By: #### 2 [id number] #### FABBY RemChem [facility] [place] [address] Albumin/Globulin [Mass ratio] 1.3 {ratio} Normal 1.1-1.9 [facility] Comment on above: Performed By: #### 2 [id number] #### FABBY [employer] [address] [place] [address] Alk Phos 82 Int._Unit/L Normal 33-110 [facility] Comment on above: Performed By: #### 2 [id number] #### FABBY [employer] [address] [place] [address] ALT [Catalytic activity/Vol] 41 Int._Unit/L Normal 7-45 [facility] Comment on above: Performed By: #### 2 [id number] #### FABBY [employer] [address] [place] [address] Anion gap [Moles/Vol] 14 mmol/L Normal 10-[address] [facility] Comment on above: Performed By: #### 2 [id number] #### FABBY [employer] [address] [place] [address] AST [Catalytic activity/Vol] 51 Int._Unit/L High 9-39 [facility] Comment on above: Performed By: #### 2 [id number] #### FABBY [employer] [facility] [place] [address] Bili Total 0.31 mg/dL Normal 0.00-1.20 [facility] Comment on above: Performed By: #### 2 [id number] #### FABBY [employer] [address] [place] [address] Calcium [Mass/Vol] 8.9 mg/dL Normal 8.6-10.3 [facility] Comment on above: Performed By: #### 2 [id number] #### FABBY [employer] [address] [place] [address] Chloride [Moles/Vol] 107 mmol/L Normal 98-107 [facility] Comment on above: Performed By: #### 2 [id number] #### FABBY [employer] [address] [place] [address] CO2 [Moles/Vol] 22.0 mmol/L Normal 21.0-32.0 [facility] Comment on above: Performed By: #### 2 [id number] #### FABBY [employer] [address] [place] [address] Creatinine [Mass/Vol] 0.8 mg/dL Normal 0.5-1.[address] [facility] Comment on above: Performed By: #### 2 [id number] #### [facility] [address] [place] [address] Globulin (S) [Mass/Vol] 3.0 g/dL Normal 2.0-4.0 [facility] Comment on above: Performed By: #### 2 [id number] #### FABBY [employer] [address] [place] [address] Glucose [Mass/Vol] 82 mg/dL Normal 70-99 [facility] Comment on above: Performed By: #### 2 [id number] #### FABBY [employer] [address] [place] [address] Potassium [Moles/Vol] 4.0 mmol/L Normal 3.5-5.[address] [facility] Comment on above: Performed By: #### 2 [id number] #### FABBY [employer] [address] [place] [address] Protein [Mass/Vol] 7.7 g/dL Normal 6.4-8.2 [facility] Comment on above: Performed By: #### 2 999009 #### FABBY [employer] [address] [place] [address] Sodium [Moles/Vol] 139 mmol/L Normal 136-145 [facility] Comment on above: Performed By: #### 2 [id number] #### FABBY [employer] [address] [place] [address] Urea nitrogen [Mass/Vol] 8 mg/dL Normal 6-23 [facility] Comment on above: Performed By: #### 2 [id number] #### FABBY [employer] [address] [place] [address] Urea nitrogen/Creatinine [Mass ratio] 10.0 ratio Normal 5.4-30.0 [facility] Comment on above: Performed By: #### 2 [id number] #### FABBY [employer] [address] [place] [address] Ethanolon 11-14-2018 Ethanol [Mass/Vol] 151 mg/dL Critically abnormal <=10 [facility] Comment on above: Result Comment: Crit ical Result (s) Called to and read back by: JEFFREY ROBISON at: 11/13/2018 23:04:17 by:KEEGAN Performed By: #### 2 [id number] #### FABBY [employer] [address] [place] [address] Magnesiumon 11-14-2018 Magnesium [Mass/Vol] 2.3 mg/dL Normal 1.6-2.4 [facility] Comment on above: Performed By: #### 2 [id number] #### FABBY [employer] [address] [place] [address] U Drug Screenon 11-14-2018 U Amph Scr Negative Normal Negative [facility] Comment on above: Performed By: #### 2 [id number] #### FABBY RemHemo [address] [place] [address] U Janell Scr Negative Normal Negative [facility] Comment on above: Performed By: #### 2 [id number] #### FABBY RemHemo [address] [place] [address] U Benzodia Scr Negative Normal Negative [facility] Comment on above: Performed By: #### 2 [id number] #### FABBY RemHemo [address] [place] [address] U Cannab Scr Negative Normal Negative [facility] Comment on above: Performed By: #### 2 [id number] #### FABBY RemHemo [address] [place] [address] U Cocaine Scr Negative Normal Negative [facility] Comment on above: Performed By: #### 2 [id number] #### FABBY RemHemo [address] [place] [address] U Opiate Scr Negative Normal Negative [facility] Comment on above: Performed By: #### 2 618415 #### FABBY RemHemo [address] [place] [address] U PCP Scr Negative Normal Negative [facility] Comment on above: Performed By: #### 2 [id number] #### FABBY RemHemo [address] [place] [address] UA Completeon 11-14-2018 Color (U) Yellow Normal Yellow [facility] Comment on above: Performed By: #### 8 [id number] #### FABBY Urinalysis Automated Subsection [address] [place] [address] Glucose (U) [Mass/Vol] Negative Normal Negative [facility] Comment on above: Performed By: #### 8 [id number] #### FABBY Urinalysis Automated Subsection [address] [place] [address] Ketones Ql (U) Negative Normal Negative [facility] Comment on above: Performed By: #### 8 [id number] #### FABBY Urinalysis Automated Subsection [facility] [place] [address] RBC (U) [#/Vol] 0-3 Normal 0-3 [facility] Comment on above: Performed By: #### 8 [id number] #### FABBY Urinalysis Automated Subsection [facility] [place] [address] UA Blood Negative Normal Negative [facility] Comment on above: Performed By: #### 8 [id number] #### FABBY Urinalysis Automated Subsection [facility] [place] [address] UA Bacteria 1+ /HPF Abnormal None [facility] Comment on above: Performed By: #### 8 [id number] #### FABBY Urinalysis Automated Subsection [address] [place] [address] UA Clarity SltCloudy Abnormal Clear [facility] Comment on above: Performed By: #### 8 [id number] #### FABBY Urinalysis Automated Subsection [facility] [place] [address] UA Leuk Est Negative Normal Negative [facility] Comment on above: Performed By: #### 8 [id number] #### FABBY Urinalysis Automated Subsection [address] [place] [address] UA Mucous Occasional Abnormal Trace [facility] Comment on above: Performed By: #### 8 [id number] #### FABBY Urinalysis Automated Subsection [address] [place] [address] UA Nitrite Negative Normal Negative [facility] Comment on above: Performed By: #### 8 [id number] #### FABBY Urinalysis Automated Subsection [address] [place] [address] UA pH 6.0 Normal 4.6-8.0 [facility] Comment on above: Performed By: #### 8 [id number] #### FABBY Urinalysis Automated Subsection [facility] [place] [address] UA Protein Negative Normal Negative [facility] Comment on above: Performed By: #### 8 [id number] #### FABBY Urinalysis Automated Subsection [address] [place] [address] UA Spec Grav 1.009 Normal 1.003-1.030 [facility] Comment on above: Performed By: #### 8 [id number] #### FABBY Urinalysis Automated Subsection [address] [place] [address] UA Squam Epithelial 0-5 Normal 0-5 [facility] Comment on above: Performed By: #### 8 [id number] #### FABBY Urinalysis Automated Subsection [address] [place] [address] UA Urobilinogen Negative Normal [facility] Comment on above: Result Comment: Due to a manufacturing issue, low positive urobilinogen results may be fasely positive. Correlate with urine bilirubin and additional clinical/laboratory findings to assess the risk of hemolytic anemia or liver disease. If clinically indicated, repeat testing with an alternate method is available by contacting the laboratory within 24 hours. Performed By: #### 8 [id number] #### FABBY Urinalysis Automated Subsection [address] [place] [address] UA WBC 0-5 Normal 0-5 [facility] Comment on above: Performed By: #### 8 [id number] #### FABBY Urinalysis Automated Subsection [address] [place] [address] Urobilinogen Qn (U) Negative Normal Negative [facility] Comment on above: Performed By: #### 8 [id number] #### FABBY Urinalysis Automated Subsection [address] [place] [address] eGFRon 11-14-2018 GFR/1.73 sq M predicted among non-blacks MDRD (S/P/Bld) [Vol rate/Area] mL/min/{1.73_m2} Normal [facility] Comment on above: Order Comment: Order added by Discern Expert. Performed By: #### 1 [id number] #### FABBY [employer] [address] [place] [address] APTTon 11-01-2018 aPTT Coag (Bld) [Time] 20.7 s [facility], [place] Comment on above: PTT Therapeutic Range: 61.7-88.4 Therapeutic range corresponds to plasma heparin levels of 0.3-0.7 U/mL. CBC Auto Differentialon - Basophils (Bld) [#/Vol] 0.00 10*3/uL [place], [place] Basophils/100 WBC (Bld) 0 % 0 - 2 % [place] Differential Type YES [facility] [place], [place] Eosinophils (Bld) [#/Vol] 0.10 10*3/uL [place] Eosinophils/100 WBC (Bld) 1 % 0 - 5 % [place] Erythrocyte distribution width (RBC) [Ratio] 14.4 % 12.1 - 15.2 % [place] Hematocrit (Bld) [Volume fraction] 40.4 % 36 - 46 % [place] Hemoglobin (Bld) [Mass/Vol] 13.6 g/dL 12 - 16 g/dL [place] Interpretation and review of laboratory results Abnormal [place] Lymphocytes (Bld) [#/Vol] 2.50 10*3/uL [place] Lymphocytes/100 WBC (Bld) 23 % 15 - 40 % [place] MCH (RBC) [Entitic mass] 30.6 pg 26 - 34 pg [place] MCHC (RBC) [Mass/Vol] 33.7 g/dL 31 - 37 g/dL [place], [place] MCV (RBC) [Entitic vol] 90.9 fL 80 - 100 fL [place] Monocytes (Bld) [#/Vol] 0.10 10*3/uL [place] Monocytes/100 WBC (Bld) 1 % Low 4 - 8 % [place] Platelet mean volume (Bld) [Entitic vol] NOT REPORTED 6 - 12 fL [place], [place] Platelets (Bld) [#/Vol] NOT REPORTED [place] Platelets (Bld) [#/Vol] 188 10*3/uL [place] RBC (Bld) [#/Vol] 4.45 10*6/uL 4 - 5.2 m/uL [place], [place] RBC morphology finding Nom (Bld) NOT REPORTED [place] Segmented neutrophils/100 WBC (Bld) 75 % 47 - 75 % [place] Segs Absolute 8.30 High [place] WBC (Bld) [#/Vol] 11.0 10*3/uL [place] WBC (Bld) [#/Vol] NOT REPORTED per 100 WBC [place] WBC Morphology NOT REPORTED [place], [place] Comprehensive Metabolic Pane mary beth 11-01-2018 Albumin [Mass/Vol] 4.5 g/dL 3.5 - 5.2 g/dL [place] Albumin/Globulin [Mass ratio] NOT REPORTED [place] ALP [Catalytic activity/Vol] 80 U/L 35 - 104 U/L [place] ALT [Catalytic activity/Vol] 45 U/L High 5 - 33 U/L [place] Anion gap [Moles/Vol] 10 mmol/L 9 - 17 mmol/L [place] AST [Catalytic activity/Vol] 46 U/L High <32 [place] Bilirubin Ql (U) 0.33 mg/dL 0.3 - 1.2 mg/dL [place] Bun/Cre Ratio 18 [place] Calcium [Mass/Vol] 9.7 mg/dL 8.6 - 10. 4 mg/dL [place] Chloride [Moles/Vol] 100 mmol/L 98 - 10 7 mmol/L [place] CO2 [Moles/Vol] 25 mmol/L 20 - 31 mmol/L [place] Creatinine [Mass/Vol] 0.6 mg/dL 0.5 - 0.9 mg/dL [place] GFR >60 >60 mL/min [place] GFR Non- >60 >60 mL/min [place] GFR/1.73 sq M predicted among non-blacks MDRD (S/P/Bld) [Vol rate/Area] [place] Comment on above: Average GFR for 20-2 9 years old: 116 mL/min/1.73sq m Chronic Kidney Disease: <60 mL/min/1.73sq m Kidney failure: <15 mL/min/1.73sq m eGFR calculated using average adult body mass. Additional eGFR calculator available at: http://www.Sitedesk/multiple_crcl_2012.htm GFR/1.73 sq M predicted among non-blacks MDRD (S/P/Bld) [Vol rate/Area] NOT REPORTED [place] Glucose [Mass/Vol] 87 mg/dL 70 - 99 mg/dL [place] Interpretation and review of laboratory results Abnormal [place] Potassium [Moles/Vol] 4.0 mmol/L 3.7 - 5.3 mmol/L [place] Protein [Mass/Vol] 8.2 g/dL 6.4 - 8.3 g/dL [place] Sodium [Moles/Vol] 135 mmol/L 135 - 144 mmol/L [place] Urea nitrogen [Mass/Vol] 11 mg/dL 6 - 20 mg/dL [place] D-dimer, quantitativeon 10-13 D-Dimer, Quant 0.52 High [place], [place] Comment on above: Elevated levels of [...] Interpretation and review of laboratory results Abnormal [place] Immature granulocytes (Bld) [#/Vol] NOT REPORTED [place] Protime-INRon 11-01-2018 INR Coag (PPP) [Relative time] 1.0 {INR} [place], [place] Comment on above: * THERAPY INDICATIONS * REFERENCE RANGES Pts not on anti-coagulants 1.0 - 1.5 INR Low risk pts on anti-coagulants 2.0 - 3.0 INR High risk pts on anti-coagulants 2.5 - 3.5 INR Prevention of atrial thrombo-embolism 3.0 - 4.5 INR PT Coag (PPP) [Time] 9.7 s [facility], [place] Alcoholon 06-21-2018 Ethanol mass conc 0.165 G/dL Normal [facility] Comment on above: Performed By: #### A LCOH #### [facility] [address] [place] [address] Ethanol mass conc 188 mg/dL Normal [facility] Comment on above: Performed By: #### A LCOH #### [facility] [address] [place] [address] CBC With Platelet and Differ entialon 06-21-2018 Basophils #/vol (Bld) 0.1 10*3/uL Normal 0.0-0.2 Me [facility] Comment on above: Performed By: #### C BCWD #### [facility] [address] [place] [address] Basophils/100 WBC (Bld) 1.0 % Normal [facility] Comment on above: Performed By: #### C BCWD #### [facility] [address] [place] [address] Eosinophils #/vol (Bld) 0.0 10*3/uL Normal 0.0-0.7 [facility] Comment on above: Performed By: #### C BCWD #### [facility] [address] [place] [address] Eosinophils/100 WBC (Bld) 0.2 % Normal [facility] Comment on above: Performed By: #### C BCWD #### [facility] [address] [place] [address] Erythrocyte distribution width Ratio (RBC) 14.6 % Critically high 11.5-14.5 [facility] Comment on above: Performed By: #### C BCWD #### [facility] [address] [place] [address] Hematocrit Volume Fraction (Bld) 43.0 % Normal 37.0-47.0 [facility] Comment on above: Performed By: #### C BCWD #### [facility] [address] [place] [address] Hemoglobin mass conc (Bld) 14.6 g/dL Normal 12.0-16.0 [facility] Comment on above: Performed By: #### C BCWD #### [facility] [address] [place] [address] Lymphocytes #/vol (Bld) 3.7 10*3/uL Normal 1.0-4.8 [facility] Comment on above: Performed By: #### C BCWD #### [facility] [address] [place] [address] Lymphocytes/100 WBC (Bld) 50.2 % Normal [facility] Comment on above: Performed By: #### C BCWD #### [facility] [address] [place] [address] MCH Entitic mass (RBC) 30.3 pg Normal 27.0-31.3 [facility] Comment on above: Performed By: #### C BCWD #### [facility] [address] [place] [address] MCHC mass conc (RBC) 33.9 % Normal 33.0-37.0 [place] Comment on above: Performed By: #### C BCWD #### [facility] [address] [place] [address] MCV Entitic volume (RBC) 89.4 fL Normal 82.0-100.0 [facility] Comment on above: Performed By: #### C BCWD #### [facility] [address] [place] [address] Monocytes #/vol (Bld) 0.3 10*3/uL Normal 0.2-0.8 [facility] Comment on above: Performed By: #### C BCWD #### [facility] [address] [place] [address] Monocytes/100 WBC (Bld) 3.5 % Normal [facility] Comment on above: Performed By: #### C BCWD #### [facility] [address] [place] [address] Neutrophils #/vol (Bld) 3.3 10*3/uL Normal 1.4-6.5 [facility] Comment on above: Performed By: #### C BCWD #### [facility] [address] [place] [address] Neutrophils/100 WBC (Bld) 45.1 % Normal [facility] Comment on above: Performed By: #### C BCWD #### [facility] [address] [place] [address] Platelets #/vol (Bld) 253 10*3/uL Normal 130-400 [facility] Comment on above: Performed By: #### C BCWD #### [facility] [address] [place] [address] RBC #/vol (Bld) 4.81 10*6/uL Normal 4.20-5.40 [facility] Comment on above: Performed By: #### C BCWD #### [facility] [address] [place] [address] WBC #/vol (Bld) 7.3 10*3/uL Normal 4.8-10.8 [facility] Comment on above: Performed By: #### C BCWD #### [facility] [address] [place] [address] Comprehensive Metabolic Pane mary beth 06-21-2018 Albumin mass conc 4.8 g/dL Critically high 3.5-4.6 [facility] Comment on above: Performed By: #### C MP #### [facility] [address] [place] [address] ALP enzyme act/vol 76 U/L Normal 40-130 [facility] Comment on above: Performed By: #### C MP #### [facility] [address] [place] [address] ALT enzyme act/vol 130 U/L Critically high 0-33 M [facility] Comment on above: Performed By: #### C MP #### [facility] [address] [place] [address] Anion gap molar conc 18 mmol/L Critically high 9-15 [facility] Comment on above: Performed By: #### C MP #### [facility] [address] [place] [address] AST enzyme act/vol 86 U/L Critically high 0-35 [facility] Comment on above: Performed By: #### C MP #### [facility] [address] [place] [address] Bilirubin mass conc 0.3 mg/dL Normal 0.2-0.7 [facility] Comment on above: Performed By: #### C MP #### [facility] [address] [place] [address] Calcium mass conc 8.5 mg/dL Normal 8.5-9.9 [facility] Comment on above: Performed By: #### C MP #### [facility] [address] [place] [address] Chloride molar conc 105 mmol/L Normal 95-107 [facility] Comment on above: Performed By: #### C MP #### [facility] [address] [place] [address] CO2 molar conc 23 mmol/L Normal 20-31 [facility] Comment on above: Performed By: #### C MP #### [facility] [address] [place] [address] Creatinine mass conc 0.61 mg/dL Normal 0.50-0.90 [facility] Comment on above: Performed By: #### C MP #### [facility] [address] [place] [address] GFR/1.73 sq M predicted among blacks MDRD vol rate/area (S/P/Bld) mL/min/{1.73_m2} Normal >60 [facility] Comment on above: Result Comment: >60 mL/min/1.73m2 EGFR, calc. for ages 18 and older using the MDRD formula (not corrected for weight), is valid for stable renal function. Performed By: #### C MP #### [facility] [address] [place] [address] GFR/1.73 sq M.predicted MDRD vol rate/area mL/min/{1.73_m2} Normal >60 [facility] Comment on above: Result Comment: >60 mL/min/1.73m2 EGFR, calc. for ages 18 and older using the MDRD formula (not corrected for weight), is valid for stable renal function. Performed By: #### C MP #### [facility] [address] [place] [address] Globulin mass conc (S) 3.2 g/dL Normal 2.3-3.5 [facility] Comment on above: Performed By: #### C MP #### [facility] [address] [place] [address] Glucose mass conc 108 mg/dL Critically high 70-99 [facility] Comment on above: Performed By: #### C MP #### [facility] [address] [place] [address] Potassium molar conc 3.8 mmol/L Normal 3.4-4.9 [facility] Comment on above: Performed By: #### C MP #### [facility] [address] [place] [address] Protein mass conc 8.0 g/dL Normal 6.3-8.0 [facility] Comment on above: Performed By: #### C MP #### [facility] [address] [place] [address] Sodium molar conc 146 mmol/L Critically high 135-144 [facility] Comment on above: Performed By: #### C MP #### [facility] [address] [place] [address] Urea nitrogen mass conc 9 mg/dL Normal 6-20 [facility] Comment on above: Performed By: #### C MP #### [facility] [address] [place] [address] Lactic Acidon 06-21-2018 Lactate molar conc 2.3 mmol/L Critically high 0.5-2.2 [facility] Comment on above: Performed By: #### L ACID #### [facility] [address] [place] [address] Troponinon 06-21-2018 Troponin I.cardiac mass conc ng/mL Normal 0.000-0.01 [facility] Comment on above: Result Comment: Meth odology by Troponin T. Performed By: #### T ROP #### [facility] [address] [place] [address] XR CHEST PORTABLEon 06-22-19 XR CHEST PORTABLE Portable chest radiograph History: Drug overdose Technique: AP portable view of the chest obtained. Comparison: None available Findings: The cardiomediastinal silhouette is within normal limits. No pneumothorax, pleural effusion, or focal consolidation. Osseous structures of the thorax appear intact. IMPRESSION: No acute intrathoracic process. Interpreted by: Kane Dos Santos DO Signed by: Kane Dos Santos DO 06/21/18 Final result Normal [facility] Vital Signs Date Time Vital Sign Value Performing Clinician Facility 08-10-2023 07:29-0400 Body temperature 97.3 [degF] Diamante Cleveland Work Phone: [facility] 08-10-2023 07:29-0400 Diastolic blood pressure 92 mm[Hg] Diamante Cleveland Work Phone: [facility] 08-10-2023 07:29-0400 Heart rate 68 /min Diamante Cleveland Work Phone: [facility] 08-10-2023 07:29-0400 Respiratory rate 18 /min Diamante Cleveland Work Phone: [facility] 08-10-2023 07:29-0400 SaO2% (BldA) [Mass fraction] 97 % Diamante Cleveland Work Phone: [facility] 08-10-2023 07:29-0400 Systolic blood pressure 125 mm[Hg] Diamante Cleveland Work Phone: [facility] [place] 08-07-2023 14:23-0400 Body height 157.48 cm Diamante Cleveland Work Phone: [facility] 08-06-2023 22:28-0400 Body weight 73.79 kg Diamante Cleveland Work Phone: [facility] 08-06-2023 20:35-0400 Diastolic blood pressure 80 mm[Hg] Eric Forbes [facility] 08-06-2023 20:35-0400 Heart rate 106 /min Eric Forbes [facility] 08-06-2023 20:35-0400 Mean blood pressure 92 mm[Hg] Eric Benavideze [facility] 08-06-2023 20:35-0400 Respiratory rate 16 /min Eric Benavideze [facility] 08-06-2023 20:35-0400 SaO2% (BldA) [Mass fraction] 96 % Eric Forbes [facility] 08-06-2023 20:35-0400 Systolic blood pressure 115 mm[Hg] Eric Benavideze [facility] 08-06-2023 15:52-0400 Body temperature 98.78 [degF] Eric Benavideze [facility] 08-06-2023 15:52-0400 Diastolic blood pressure 88 mm[Hg] Eric Benavideze [facility] 08-06-2023 15:52-0400 Heart rate 104 /min Eric Benavideze [facility] 08-06-2023 15:52-0400 Respiratory rate 18 /min Eric Leidy [facility] 08-06-2023 15:52-0400 SaO2% (BldA) [Mass fraction] 95 % Eric Forbes [facility] 08-06-2023 15:52-0400 Systolic blood pressure 130 mm[Hg] Eric Forbes [facility] 07-14-2023 11:01-0400 Blood Pressure Location Mike Spear [facility] 07-14-2023 11:01-0400 Body temperature 97.34 [degF] Mike Spear [facility] 07-14-2023 11:01-0400 Diastolic blood pressure 88 mm[Hg] Mike Turnerpsey [facility] 07-14-2023 11:01-0400 Heart rate 71 /min Mike Spear [facility] 07-14-2023 11:01-0400 SaO2% (BldA) [Mass fraction] 98 % Mike Spear [facility] 07-14-2023 11:01-0400 Systolic blood pressure 138 mm[Hg] Mike Rainer [facility] 07-05-2023 21:38-0400 Diastolic blood pressure 108 mm[Hg] Isai Hall [facility] 07-05-2023 21:38-0400 Heart rate 90 /min Isai Hall [facility] 07-05-2023 21:38-0400 Mean blood pressure 124 mm[Hg] Isai Hall [facility] 07-05-2023 21:38-0400 Respiratory rate 16 /min Isai Hall [facility] 07-05-2023 21:38-0400 SaO2% (BldA) [Mass fraction] 98 % Isai Hall [facility] 07-05-2023 21:38-0400 Systolic blood pressure 157 mm[Hg] Isai Hall [facility] 07-05-2023 10:38-0400 Body temperature 98.78 [degF] Isai Hall [facility] 07-05-2023 10:38-0400 Diastolic blood pressure 103 mm[Hg] Isai Hall [facility] 07-05-2023 10:38-0400 Heart rate 105 /min Isai Hall [facility] 07-05-2023 10:38-0400 Respiratory rate 20 /min Isai Hall [facility] 07-05-2023 10:38-0400 SaO2% (BldA) [Mass fraction] 97 % Isai Hall [facility] 07-05-2023 10:38-0400 Systolic blood pressure 145 mm[Hg] Isai Rafael [facility] 07-03-2023 10:00-0400 Diastolic blood pressure 91 mm[Hg] Kaushik Samanta [facility] 07-03-2023 10:00-0400 Heart rate 85 /min Kaushik Samanta [facility] 07-03-2023 10:00-0400 Mean blood pressure 105 mm[Hg] Kaushik Samanta [facility] 07-03-2023 10:00-0400 Respiratory rate 15 /min Kaushik Samanta [facility] 07-03-2023 10:00-0400 SaO2% (BldA) [Mass fraction] 96 % Kaushik Samanta [facility] 07-03-2023 10:00-0400 Systolic blood pressure 133 mm[Hg] Kaushik Samanta [facility] 07-03-2023 09:00-0400 Diastolic blood pressure 102 mm[Hg] Kaushik Samanta [facility] 07-03-2023 09:00-0400 Heart rate 93 /min Kaushik Samanta [facility] 07-03-2023 09:00-0400 Mean blood pressure 113 mm[Hg] Kaushik Samanta [facility] 07-03-2023 09:00-0400 Systolic blood pressure 135 mm[Hg] Kaushik Samanta [facility] 07-03-2023 08:30-0400 Diastolic blood pressure 94 mm[Hg] Kaushik Samanta [facility] 07-03-2023 08:30-0400 Heart rate 98 /min Kaushik Samanta [facility] 07-03-2023 08:30-0400 Mean blood pressure 107 mm[Hg] Kaushik Samanta [facility] 07-03-2023 08:30-0400 Respiratory rate 12 /min Kaushik Asmanta [facility] 07-03-2023 08:30-0400 SaO2% (BldA) [Mass fraction] 97 % Kaushik Samanta [facility] 07-03-2023 08:30-0400 Systolic blood pressure 132 mm[Hg] Kaushik Samanta [facility] 07-03-2023 08:04-0400 gluc 109 mg/dL Kaushik Samanta [facility] 07-03-2023 07:56-0400 Heart rate 101 /min Kaushik Sparks [facility] 07-03-2023 07:31-0400 Body temperature 98.6 [degF] Kaushik Sparks [facility] 07-03-2023 07:31-0400 Heart rate 122 /min Kaushik Sparks [facility] 07-03-2023 07:31-0400 Respiratory rate 18 /min Kaushik Sparks [facility] 06-30-2023 23:42-0400 Blood Pressure Location Isairichard Hall [facility] 06-30-2023 23:42-0400 Diastolic blood pressure 109 mm[Hg] Isai Rafael [facility] 06-30-2023 23:42-0400 Heart rate 113 /min Isai Hall [facility] 06-30-2023 23:42-0400 Mean blood pressure 117 mm[Hg] Isai Hall [facility] 06-30-2023 23:42-0400 Respiratory rate 16 /min Isai Hall [facility] 06-30-2023 23:42-0400 SaO2% (BldA) [Mass fraction] 98 % Isai Rafael [facility] 06-30-2023 23:42-0400 Systolic blood pressure 133 mm[Hg] Isai Hall [facility] 06-30-2023 20:47-0400 Blood Pressure Location Isai Hall [facility] 06-30-2023 20:47-0400 Diastolic blood pressure 92 mm[Hg] Isai Hall [facility] 06-30-2023 20:47-0400 Heart rate 113 /min Isai Rafael [facility] 06-30-2023 20:47-0400 Mean blood pressure 100 mm[Hg] Isai Rafael [facility] 06-30-2023 20:47-0400 Respiratory rate 16 /min Isai Rafael [facility] 06-30-2023 20:47-0400 SaO2% (BldA) [Mass fraction] 97 % Isai Rafael [facility] 06-30-2023 20:47-0400 Systolic blood pressure 115 mm[Hg] Isai Rafael [facility] 06-30-2023 19:46-0400 Respiratory rate 16 /min Isai Rafael [facility] 06-30-2023 18:00-0400 Heart rate 82 /min Isai Rafael [facility] 06-30-2023 18:00-0400 SaO2% (BldA) [Mass fraction] 94 % Isai Rafael [facility] 06-30-2023 16:30-0400 Diastolic blood pressure 105 mm[Hg] Isai Rafael [facility] 06-30-2023 16:30-0400 Heart rate 61 /min Isai Rafael [facility] 06-30-2023 16:30-0400 Systolic blood pressure 122 mm[Hg] Isai Rafael [facility] 06-30-2023 15:30-0400 Heart rate 65 /min Isia Rafael [facility] 06-30-2023 13:45-0400 Body temperature 98.6 [degF] Isai Rafael [facility] 06-30-2023 13:45-0400 Heart rate 79 /min Isai Rafael [facility] 06-17-2023 15:32-0400 Blood Pressure Location Mike Spear [facility] 06-17-2023 15:32-0400 Body temperature 98.24 [degF] Mike Spear [facility] 06-17-2023 15:32-0400 Diastolic blood pressure 84 mm[Hg] Mike Turnerpsey [facility] 06-17-2023 15:32-0400 Heart rate 73 /min Mike Rainer [facility] 06-17-2023 15:32-0400 SaO2% (BldA) [Mass fraction] 93 % Mike Spear [facility] 06-17-2023 15:32-0400 Systolic blood pressure 128 mm[Hg] Mike Spear [facility] 06-03-2023 20:28-0400 Body temperature 98.24 [degF] Kaylinn Dokken [facility] 06-03-2023 20:28-0400 Diastolic blood pressure 92 mm[Hg] Kaylinn Dokken [facility] 06-03-2023 20:28-0400 Heart rate 76 /min Kaylinn Dokken [facility] 06-03-2023 20:28-0400 SaO2% (BldA) [Mass fraction] 95 % Kaylinn Dokken [facility] 06-03-2023 20:28-0400 Systolic blood pressure 149 mm[Hg] Kaylinn Dokken [facility] 04-25-2023 20:12-0400 Diastolic blood pressure 74 mm[Hg] HOUSING MANAGEMENT REPRESENTATIVE Amanda Robuck Work Phone: [facility] 04-25-2023 20:12-0400 Heart rate 108 /min HOUSING MANAGEMENT REPRESENTATIVE Amanda Robuck Work Phone: [facility] 04-25-2023 20:12-0400 Respiratory rate 19 /min HOUSING MANAGEMENT REPRESENTATIVE Amanda Robuck Work Phone: [facility] [place] 04-25-2023 20:12-0400 SaO2% (BldA) [Mass fraction] 95 % HOUSING MANAGEMENT REPRESENTATIVE Amanda Robuck Work Phone: [facility] 04-25-2023 20:12-0400 Systolic blood pressure 127 mm[Hg] HOUSING MANAGEMENT REPRESENTATIVE Amanda Robuck Work Phone: [facility] 04-25-2023 17:45-0400 Body height 157.48 cm HOUSING MANAGEMENT REPRESENTATIVE Amanda Robuck Work Phone: [facility] 04-25-2023 17:45-0400 Body temperature 97.8 [degF] HOUSING MANAGEMENT REPRESENTATIVE Amanda Robuck Work Phone: [facility] 04-25-2023 17:45-0400 Body weight 72.2 kg HOUSING MANAGEMENT REPRESENTATIVE Amanda Robuck Work Phone: [facility] 04-19-2023 22:01-0500 Body temperature 98.06 [degF] Kaylinn Dokken [facility] 04-19-2023 22:01-0500 Diastolic blood pressure 100 mm[Hg] Kaylinn Dokken [facility] 04-19-2023 22:01-0500 Heart rate 70 /min Kaylinn Dokken [facility] 04-19-2023 22:01-0500 Respiratory rate 25 /min Kerry Linton [facility] 04-19-2023 22:01-0500 SaO2% (BldA) [Mass fraction] 99 % Kerry Linton [facility] 04-19-2023 22:01-0500 Systolic blood pressure 135 mm[Hg] Kerry Linton [facility] 04-08-2023 19:59-0500 Body height 157.48 cm HOUSING MANAGEMENT REPRESENTATIVE Amanda Barrios Work Phone: [facility] 04-08-2023 19:59-0500 Body temperature 98.3 [degF] HOUSING MANAGEMENT REPRESENTATIVE Amanda Robuck Work Phone: [facility] 04-08-2023 19:59-0500 Body weight 73 kg HOUSING MANAGEMENT REPRESENTATIVE Amanda Robuck Work Phone: [facility] 04-08-2023 19:59-0500 Diastolic blood pressure 75 mm[Hg] HOUSING MANAGEMENT REPRESENTATIVE Amanda Robuck Work Phone: [facility] 04-08-2023 19:59-0500 Heart rate 87 /min HOUSING MANAGEMENT REPRESENTATIVE Amanda Robuck Work Phone: [facility] 04-08-2023 19:59-0500 Respiratory rate 21 /min HOUSING MANAGEMENT REPRESENTATIVE Amanda Robuck Work Phone: [facility] 04-08-2023 19:59-0500 SaO2% (BldA) [Mass fraction] 100 % HOUSING MANAGEMENT REPRESENTATIVE Amanda Robuck Work Phone: [facility] [place] 04-08-2023 19:59-0500 Systolic blood pressure 143 mm[Hg] HOUSING MANAGEMENT REPRESENTATIVE Amanda Robuck Work Phone: [facility] [place] 04-06-2023 21:12-0500 Diastolic blood pressure 93 mm[Hg] Diamante Cleveland Work Phone: [facility] 04-06-2023 21:12-0500 Heart rate 110 /min Diamante Cleveland Work Phone: [facility] 04-06-2023 21:12-0500 Respiratory rate 18 /min Diamante Cleveland Work Phone: [facility] [place] 04-06-2023 21:12-0500 SaO2% (BldA) [Mass fraction] 93 % Diamante Cleveland Work Phone: [facility] 04-06-2023 21:12-0500 Systolic blood pressure 140 mm[Hg] Diamante Cleveland Work Phone: [facility] 04-06-2023 16:37-0500 Body height 157.48 cm Diamante Cleveland Work Phone: [facility] 04-06-2023 16:37-0500 Body temperature 97.9 [degF] Diamante Cleveland Work Phone: [facility] 04-06-2023 16:37-0500 Body weight 72 kg Diamante Cleveland Work Phone: [facility] 03-17-2023 11:19-0500 Diastolic blood pressure 84 mm[Hg] Diamante Cleveland Work Phone: [facility] 03-17-2023 11:19-0500 Heart rate 80 /min Diamante Cleveland Work Phone: [facility] 03-17-2023 11:19-0500 Respiratory rate 18 /min Diamante Cleveland Work Phone: [facility] 03-17-2023 11:19-0500 SaO2% (BldA) [Mass fraction] 99 % Diamante Cleveland Work Phone: [facility] 03-17-2023 11:19-0500 Systolic blood pressure 115 mm[Hg] Diamante Cleveland Work Phone: [facility] [place] 03-17-2023 08:31-0500 Body height 157.48 cm Diamante Cleveland Work Phone: [facility] 03-17-2023 08:31-0500 Body temperature 98.1 [degF] Diamante Cleveland Work Phone: [facility] 03-17-2023 08:31-0500 Body weight 71.2 kg Diamante Cleveland Work Phone: [facility] 03-12-2023 15:51-0500 Heart rate 74 /min Diamante Cleveland Work Phone: [facility] 03-12-2023 15:48-0500 Body height 157.48 cm Diamante Cleveland Work Phone: [facility] [place] 03-12-2023 15:48-0500 Body temperature 97.6 [degF] Diamante Cleveland Work Phone: [facility] 03-12-2023 15:48-0500 Body weight 71 kg Diamante Cleveland Work Phone: [facility] [place] 03-12-2023 15:48-0500 Diastolic blood pressure 92 mm[Hg] Diamante Cleveland Work Phone: [facility] 03-12-2023 15:48-0500 Respiratory rate 16 /min Diamante Cleveland Work Phone: [facility] 03-12-2023 15:48-0500 SaO2% (BldA) [Mass fraction] 97 % Diamante Cleveland Work Phone: [facility] [place] 03-12-2023 15:48-0500 Systolic blood pressure 128 mm[Hg] Diamante Cleveland Work Phone: [facility] [place] 03-04-2023 19:06-0500 Body height 154.94 cm DO Ari More Work Phone: [facility] [place] 03-04-2023 19:06-0500 Body temperature 97.8 [degF] DO Ari More Work Phone: [facility] 03-04-2023 19:06-0500 Body weight 71 kg DO Ari More Work Phone: [facility] [place] 03-04-2023 19:06-0500 Diastolic blood pressure 97 mm[Hg] DO Ari More Work Phone: [facility] [place] 03-04-2023 19:06-0500 Heart rate 89 /min DO Ari More Work Phone: [facility] 03-04-2023 19:06-0500 Respiratory rate 25 /min DO Ari More Work Phone: [facility] [place] 03-04-2023 19:06-0500 SaO2% (BldA) [Mass fraction] 95 % DO Ari More Work Phone: [facility] 03-04-2023 19:06-0500 Systolic blood pressure 135 mm[Hg] DO Ari More Work Phone: [facility] 01-25-2023 06:21-0500 Diastolic blood pressure 68 mm[Hg] DO Ari More Work Phone: [facility] 01-25-2023 06:21-0500 Heart rate 88 /min DO Ari More Work Phone: [facility] 01-25-2023 06:21-0500 Respiratory rate 18 /min DO Ari More Work Phone: [facility] 01-25-2023 06:21-0500 SaO2% (BldA) [Mass fraction] 97 % DO Ari More Work Phone: [facility] 01-25-2023 06:21-0500 Systolic blood pressure 102 mm[Hg] DO Ari More Work Phone: [facility] 01-25-2023 01:01-0500 Body height 157.48 cm DO Ari More Work Phone: [facility] 01-25-2023 01:01-0500 Body temperature 98.9 [degF] DO Ari More Work Phone: [facility] 01-25-2023 01:01-0500 Body weight 65.77 kg DO Ari More Work Phone: [facility] [place] 01-19-2023 12:00-0500 Diastolic blood pressure 89 mm[Hg] DO Ari More Work Phone: [facility] 01-19-2023 12:00-0500 Heart rate 82 /min DO Ari More Work Phone: [facility] 01-19-2023 12:00-0500 Respiratory rate 22 /min DO Ari More Work Phone: [facility] [place] 01-19-2023 12:00-0500 SaO2% (BldA) [Mass fraction] 99 % DO Ari More Work Phone: [facility] [place] 01-19-2023 12:00-0500 Systolic blood pressure 143 mm[Hg] DO Ari More Work Phone: [facility] [place] 01-19-2023 10:33-0500 Body height 161.29 cm DO Ari More Work Phone: [facility] [place] 01-19-2023 10:33-0500 Body temperature 97.7 [degF] DO Ari More Work Phone: [facility] [place] 01-19-2023 10:33-0500 Body weight 71 kg DO Ari More Work Phone: [facility] [place] 01-08-2023 13:57-0500 Body height 154.94 cm HOUSING MANAGEMENT REPRESENTATIVE Amanda Robuck Work Phone: [facility] [place] 01-08-2023 13:57-0500 Body temperature 98.1 [degF] HOUSING MANAGEMENT REPRESENTATIVE Amanda Robuck Work Phone: [facility] 01-08-2023 13:57-0500 Body weight 71.2 kg HOUSING MANAGEMENT REPRESENTATIVE Amanda Robuck Work Phone: [facility] 01-08-2023 13:57-0500 Diastolic blood pressure 88 mm[Hg] HOUSING MANAGEMENT REPRESENTATIVE Amanda Robuck Work Phone: [facility] 01-08-2023 13:57-0500 Heart rate 100 /min HOUSING MANAGEMENT REPRESENTATIVE Aamnda Robuck Work Phone: [facility] 01-08-2023 13:57-0500 Respiratory rate 20 /min HOUSING MANAGEMENT REPRESENTATIVE Amanda Robuck Work Phone: [facility] [facility] [place] 01-08-2023 13:57-0500 SaO2% (BldA) [Mass fraction] 98 % HOUSING MANAGEMENT REPRESENTATIVE Amanda Robuck Work Phone: [facility] [place] 01-08-2023 13:57-0500 Systolic blood pressure 149 mm[Hg] HOUSING MANAGEMENT REPRESENTATIVE Amanda Robuck Work Phone: [facility] [place] 01-06-2023 14:00-0500 Heart rate 58 /min Azramalorie JENSENSLIN [facility] 01-06-2023 14:00-0500 Hourly Rounding Azra EDISON [facility] 01-06-2023 14:00-0500 Promise to Return Azra EDISON [facility] 01-06-2023 14:00-0500 Respiratory rate 12 /min Azra EDISON [facility] 01-06-2023 14:00-0500 SaO2% (BldA) [Mass fraction] 98 % Azra EDISON [facility] 01-06-2023 13:20-0500 Hourly Rounding Azra EDISON [facility] 01-06-2023 13:20-0500 Promise to Return Azra EDISON [facility] 01-06-2023 13:00-0500 Heart rate 56 /min Azra EDISON [facility] 01-06-2023 12:27-0500 Hourly Rounding Azra EDISON [facility] 01-06-2023 12:27-0500 Promise to Return Azra EDISON [facility] 01-06-2023 12:00-0500 Diastolic blood pressure 88 mm[Hg] Azra EDISON [facility] 01-06-2023 12:00-0500 Heart rate 66 /min Azra EDISON [facility] 01-06-2023 12:00-0500 Mean blood pressure 111 mm[Hg] Azra EDISON [facility] 01-06-2023 12:00-0500 SaO2% (BldA) [Mass fraction] 97 % Azra EDISON [facility] 01-06-2023 12:00-0500 Systolic blood pressure 158 mm[Hg] Azra EDISON [facility] 01-06-2023 10:00-0500 Diastolic blood pressure 105 mm[Hg] Azra EDISON [facility] 01-06-2023 10:00-0500 Mean blood pressure 117 mm[Hg] Azra EDISON [facility] 01-06-2023 10:00-0500 Systolic blood pressure 141 mm[Hg] Azra EDISON [facility] 01-06-2023 09:00-0500 Diastolic blood pressure 99 mm[Hg] Azra EDISON [facility] 01-06-2023 09:00-0500 Systolic blood pressure 153 mm[Hg] Azra EDISON [facility] 01-06-2023 08:00-0500 Body temperature 97.7 [degF] Azra EDISON [facility] 01-06-2023 04:00-0500 Body temperature 97.34 [degF] Azra EDISON [facility] 01-06-2023 00:00-0500 Body temperature 97.52 [degF] Azra EDISON [facility] 2023 07:08-0500 Heart rate 73 /min Azra EDISON [facility] 2023 05:54-0500 Blood Pressure Location Azra EDISON [facility] 2023 05:54-0500 Heart rate 72 /min Azra EDISON [facility] 2023 05:54-0500 Respiratory rate 12 /min Azra EDISON [facility] 2023 01:56-0500 Heart rate 79 /min Azra EDISON [facility] 2023 00:53-0500 Respiratory rate 16 /min Azra EDISON [facility] 01-02-2023 02:44-0500 Diastolic blood pressure 71 mm[Hg] Darren Megan [facility] 01-02-2023 02:44-0500 Heart rate 86 /min Darren Megan [facility] 01-02-2023 02:44-0500 Mean blood pressure 84 mm[Hg] Darren Megan [facility] 01-02-2023 02:44-0500 Respiratory rate 18 /min Darren Megan [facility] 01-02-2023 02:44-0500 SaO2% (BldA) [Mass fraction] 97 % Darren Megan [facility] 01-02-2023 02:44-0500 Systolic blood pressure 110 mm[Hg] Darren Megan [facility] 01-02-2023 00:43-0500 Body temperature 97.88 [degF] Darren Megan [facility] 01-02-2023 00:43-0500 Diastolic blood pressure 87 mm[Hg] Darren Megan [facility] 01-02-2023 00:43-0500 Heart rate 88 /min Darren Megan [facility] 01-02-2023 00:43-0500 Respiratory rate 16 /min Darren Megan [facility] 01-02-2023 00:43-0500 SaO2% (BldA) [Mass fraction] 97 % Darren Megan [facility] 01-02-2023 00:43-0500 Systolic blood pressure 137 mm[Hg] Darren Megan [facility] 12-16-2022 20:58-0500 Diastolic blood pressure 79 mm[Hg] Amy Steele MD Work Phone: [facility] 12-16-2022 20:58-0500 Heart rate 98 /min Amy Steele MD Work Phone: [facility] 12-16-2022 20:58-0500 Respiratory rate 20 /min Amy Steele MD Work Phone: [facility] 12-16-2022 20:58-0500 SaO2% (BldA) [Mass fraction] 98 % Aym Steele MD Work Phone: [facility] 12-16-2022 20:58-0500 Systolic blood pressure 116 mm[Hg] Amy Steele MD Work Phone: [facility] 12-15-2022 05:27-0400 Body temperature 97.2 [degF] Amy Steele MD Work Phone: [facility] 12-14-2022 21:01-0400 Body height 162.6 cm Amy Steele MD Work Phone: [facility] 12-14-2022 21:01-0400 Body mass index (BMI) [Ratio] 22.31 kg/m2 Amy Steele MD Work Phone: [facility] 12-14-2022 21:01-0400 Body weight 58.97 kg Amy Steele MD Work Phone: [facility] 12-11-2022 16:02-0400 Diastolic blood pressure 68 mm[Hg] HOUSING MANAGEMENT REPRESENTATIVE Amanda Robuck Work Phone: [facility] [place] 12-11-2022 16:02-0400 Heart rate 72 /min HOUSING MANAGEMENT REPRESENTATIVE Amanda Robuck Work Phone: [facility] [place] 12-11-2022 16:02-0400 Respiratory rate 18 /min HOUSING MANAGEMENT REPRESENTATIVE Amanda Robuck Work Phone: [facility] [place] 12-11-2022 16:02-0400 SaO2% (BldA) [Mass fraction] 96 % HOUSING MANAGEMENT REPRESENTATIVE Amanda Robuck Work Phone: [facility] [place] 12-11-2022 16:02-0400 Systolic blood pressure 117 mm[Hg] LOGAN Barrios Work Phone: [facility] [place] 12-11-2022 13:45-0400 Inhaled oxygen flow rate 2 L/min LOGAN Barrios Work Phone: [facility] [place] 12-11-2022 11:30-0400 Body height 165.1 cm LOGAN Barrios Work Phone: [facility] [place] 12-11-2022 11:30-0400 Body temperature 97.1 [degF] LOGAN Barrios Work Phone: [facility] [place] 12-11-2022 11:30-0400 Body weight 76.6 kg LOGAN Barrios Work Phone: [facility] [place] 12-10-2022 21:52-0400 Heart rate 89 /min Eric Forbes [facility] 12-10-2022 21:52-0400 Respiratory rate 19 /min Eric Forbes [facility] 12-10-2022 21:52-0400 SaO2% (BldA) [Mass fraction] 95 % Eric Forbes [facility] 12-10-2022 20:07-0400 Diastolic blood pressure 88 mm[Hg] Eric Forbes [facility] 12-10-2022 20:07-0400 Heart rate 90 /min Eric Benavideze [facility] 12-10-2022 20:07-0400 Respiratory rate 18 /min Eric Benavideze [facility] 12-10-2022 20:07-0400 SaO2% (BldA) [Mass fraction] 98 % Eric Forbes [facility] 12-10-2022 20:07-0400 Systolic blood pressure 138 mm[Hg] Eric Benavideze [facility] 12-10-2022 18:30-0400 Heart rate 88 /min Eric Benavideze [facility] 12-10-2022 18:30-0400 Respiratory rate 18 /min Eric Benavideze [facility] 12-10-2022 18:30-0400 SaO2% (BldA) [Mass fraction] 99 % Eric Benavideze [facility] 12-10-2022 17:23-0400 Body temperature 98.42 [degF] Eric Benavideze [facility] 12-10-2022 17:23-0400 Diastolic blood pressure 101 mm[Hg] Eric Benavideze [facility] 12-10-2022 17:23-0400 Systolic blood pressure 140 mm[Hg] Eric Benavideze [facility] 12-10-2022 11:45-0400 Diastolic blood pressure 98 mm[Hg] Eric Benavideze [facility] 12-10-2022 11:45-0400 Heart rate 96 /min Eric Benavideze [facility] 12-10-2022 11:45-0400 Mean blood pressure 116 mm[Hg] Eric Benavideze [facility] 12-10-2022 11:45-0400 Respiratory rate 18 /min Eric Benavideze [facility] 12-10-2022 11:45-0400 SaO2% (BldA) [Mass fraction] 96 % Eric Benavideze [facility] 12-10-2022 11:45-0400 Systolic blood pressure 153 mm[Hg] Eric Benavideze [facility] 12-10-2022 10:29-0400 SaO2% (BldA) [Mass fraction] 93 % Eric Leidy [facility] 12-10-2022 10:15-0400 Diastolic blood pressure 82 mm[Hg] Eric Leidy [facility] 12-10-2022 10:15-0400 Heart rate 75 /min Eric Leidy [facility] 12-10-2022 10:15-0400 Mean blood pressure 95 mm[Hg] Eric Leidy [facility] 12-10-2022 10:15-0400 Respiratory rate 18 /min Eric Leidy [facility] 12-10-2022 10:15-0400 SaO2% (BldA) [Mass fraction] 93 % Eric Leidy [facility] 12-10-2022 10:15-0400 Systolic blood pressure 122 mm[Hg] Eric Leidy [facility] 12-10-2022 09:00-0400 Diastolic blood pressure 81 mm[Hg] Eric Leidy [facility] 12-10-2022 09:00-0400 Heart rate 65 /min Eric Leidy [facility] 12-10-2022 09:00-0400 Systolic blood pressure 123 mm[Hg] Eric Leidy [facility] 12-10-2022 08:01-0400 Body temperature 97.88 [degF] Eric Leidy [facility] 12-10-2022 08:01-0400 Heart rate 91 /min Reic Leidy [facility] 12-10-2022 08:01-0400 Respiratory rate 20 /min Eric Leidy [facility] 11-30-2022 13:30-0400 Blood Pressure Location ACRRIE PEREZ [facility] 11-30-2022 13:30-0400 Body temperature 98.6 [degF] STEILACOOM PEREZ [facility] 11-30-2022 13:30-0400 Diastolic blood pressure 82 mm[Hg] STEILACOOM PEREZ [facility] 11-30-2022 13:30-0400 Heart rate 68 /min [facility] 11-30-2022 13:30-0400 SaO2% (BldA) [Mass fraction] 98 % [facility] 11-30-2022 13:30-0400 Systolic blood pressure 138 mm[Hg] STEILACOOM PEREZ [facility] 11-04-2022 15:46-0400 Diastolic blood pressure 95 mm[Hg] [facility] 11-04-2022 15:46-0400 Heart rate 58 /min [facility] 11-04-2022 15:46-0400 Respiratory rate 16 /min [facility] 11-04-2022 15:46-0400 SaO2% (BldA) [Mass fraction] 98 % [facility] 11-04-2022 15:46-0400 Systolic blood pressure 153 mm[Hg] [facility] 11-04-2022 14:38-0400 Diastolic blood pressure 121 mm[Hg] [facility] 11-04-2022 14:38-0400 Heart rate 67 /min [facility] 11-04-2022 14:38-0400 Respiratory rate 18 /min [facility] 11-04-2022 14:38-0400 SaO2% (BldA) [Mass fraction] 98 % [facility] 11-04-2022 14:38-0400 Systolic blood pressure 176 mm[Hg] [facility] 11-04-2022 13:22-0400 Diastolic blood pressure 120 mm[Hg] [facility] 11-04-2022 13:22-0400 Heart rate 84 /min [facility] 11-04-2022 13:22-0400 Respiratory rate 18 /min [facility] 11-04-2022 13:22-0400 SaO2% (BldA) [Mass fraction] 99 % [facility] 11-04-2022 13:22-0400 Systolic blood pressure 180 mm[Hg] [facility] 11-04-2022 12:23-0400 Body temperature 97.7 [degF] [facility] 11-04-2022 12:23-0400 Heart rate 70 /min [facility] 09-06-2022 11:52-0400 Diastolic blood pressure 103 mm[Hg] HOUSING MANAGEMENT REPRESENTATIVE Amanda Robuck Work Phone: [facility] [place] 09-06-2022 11:52-0400 Heart rate 76 /min HOUSING MANAGEMENT REPRESENTATIVE Amanda Robuck Work Phone: [facility] [place] 09-06-2022 11:52-0400 Respiratory rate 18 /min HOUSING MANAGEMENT REPRESENTATIVE Amanda Robuck Work Phone: [facility] [place] 09-06-2022 11:52-0400 SaO2% (BldA) [Mass fraction] 97 % HOUSING MANAGEMENT REPRESENTATIVE Amanda Robuck Work Phone: [facility] [place] 09-06-2022 11:52-0400 Systolic blood pressure 159 mm[Hg] HOUSING MANAGEMENT REPRESENTATIVE Amanda Robuck Work Phone: [facility] [place] 09-06-2022 10:16-0400 Body height 157.48 cm HOUSING MANAGEMENT REPRESENTATIVEDesean Barrios Work Phone: [facility] [place] 09-06-2022 10:16-0400 Body temperature 97.1 [degF] HOUSING MANAGEMENT REPRESENTATIVEDesean Barrios Work Phone: [facility] [place] 09-06-2022 10:16-0400 Body weight 71.4 kg HOUSING MANAGEMENT REPRESENTATIVEDesean Barrios Work Phone: [facility] [place] 08-28-2022 09:49-0400 Blood Pressure Location Lorie Gudimella [facility] 08-28-2022 09:49-0400 Body temperature 98.6 [degF] Lorie Gudimella [facility] 08-28-2022 09:49-0400 Diastolic blood pressure 60 mm[Hg] Lorie Gudimella [facility] 08-28-2022 09:49-0400 Heart rate 71 /min Lorie Gudimella [facility] 08-28-2022 09:49-0400 SaO2% (BldA) [Mass fraction] 96 % Lorie Gudimella [facility] 08-28-2022 09:49-0400 Systolic blood pressure 118 mm[Hg] Lorie Gudimella [facility] 08-18-2022 10:01-0400 Hourly Rounding Azra HOGAN [facility] 08-18-2022 10:01-0400 Promise to Return Azra HOGAN [facility] 08-18-2022 09:52-0400 Hourly Rounding Azra HOGAN [facility] 08-18-2022 09:52-0400 Promise to Return Azramalorie JENSENSLIN [facility] 08-18-2022 08:46-0400 Hourly Rounding Azramalorie JENSENSLIN [facility] 08-18-2022 08:46-0400 Promise to Return Azramalorie JENSENSLIN [facility] 08-18-2022 08:00-0400 Body temperature 98.06 [degF] Azra EDISON [facility] 08-18-2022 08:00-0400 Diastolic blood pressure 72 mm[Hg] Azra EDISON [facility] 08-18-2022 08:00-0400 Heart rate 65 /min Azra EDISON [facility] 08-18-2022 08:00-0400 SaO2% (BldA) [Mass fraction] 96 % Azra EDISON [facility] 08-18-2022 08:00-0400 Systolic blood pressure 120 mm[Hg] Azra EDISON [facility] 08-18-2022 00:00-0400 Body temperature 98.06 [degF] Azra EDISON [facility] 08-18-2022 00:00-0400 Diastolic blood pressure 68 mm[Hg] Azra EDISON [facility] 08-18-2022 00:00-0400 Heart rate 69 /min Azra EDISON [facility] 08-18-2022 00:00-0400 SaO2% (BldA) [Mass fraction] 98 % Azra EDISON [facility] 08-18-2022 00:00-0400 Systolic blood pressure 110 mm[Hg] Azra EDISON [facility] 08-17-2022 19:57-0400 Heart rate 74 /min Azra EDISON [facility] 08-17-2022 19:57-0400 SaO2% (BldA) [Mass fraction] 97 % Azra EDISON [facility] 08-17-2022 19:56-0400 Diastolic blood pressure 69 mm[Hg] Azra EDISON [facility] 08-17-2022 19:56-0400 Mean blood pressure 82 mm[Hg] Azramalorie JENSENSLIN [facility] 08-17-2022 19:56-0400 Systolic blood pressure 109 mm[Hg] Azra EDISON [facility] 08-17-2022 19:55-0400 Body temperature 97.52 [degF] Azra EDISON [facility] 08-17-2022 16:22-0400 Mean blood pressure 124 mm[Hg] Azramalorie JENSENSLIN [facility] 08-17-2022 11:47-0400 Mean blood pressure 82 mm[Hg] Azra EDISON [facility] 08-17-2022 11:46-0400 Body temperature 97.88 [degF] Azra EDISON [facility] 08-17-2022 08:20-0400 Body temperature 96.62 [degF] Azra EDISON [facility] 08-17-2022 06:50-0400 Blood Pressure Location Azra EDISON [facility] 08-17-2022 06:50-0400 Heart rate 54 /min Azra EDISON [facility] 08-17-2022 06:24-0400 Mean blood pressure 93 mm[Hg] Azra EDISON [facility] 08-17-2022 06:24-0400 Respiratory rate 11 /min Azra EDISON [facility] 08-17-2022 05:19-0400 Mean blood pressure 92 mm[Hg] Azra EDISON [facility] 08-17-2022 05:19-0400 Respiratory rate 31 /min Azra EDISON [facility] 08-17-2022 03:00-0400 Mean blood pressure 85 mm[Hg] Azra EDISON [facility] 08-17-2022 03:00-0400 Respiratory rate 32 /min Azra EDISON [facility] 08-17-2022 01:39-0400 Blood Pressure Location Azra EDISON [facility] 08-17-2022 01:39-0400 Heart rate 64 /min Azra DEISON [facility] 08-17-2022 01:39-0400 Respiratory rate 15 /min Azra EDISON [facility] 08-17-2022 01:24-0400 Body temperature 97.16 [degF] Azra EDISON [facility] 08-17-2022 01:24-0400 Heart rate 62 /min Azra EDISON [facility] 08-16-2022 23:47-0400 Body temperature 96.62 [degF] Azra HOGAN [facility] 08-16-2022 23:47-0400 Respiratory rate 23 /min Azra HOGAN [facility] 08-13-2022 13:26-0400 Diastolic blood pressure 88 mm[Hg] Amanda ROBUCK [facility] 08-13-2022 13:26-0400 Mean blood pressure 101 mm[Hg] Amanda ROBUCK [facility] 08-13-2022 13:26-0400 Systolic blood pressure 128 mm[Hg] Amanda ROBUCK [facility] 08-13-2022 12:58-0400 Blood Pressure Location Amanda ROBUCK [facility] 08-13-2022 12:58-0400 Diastolic blood pressure 107 mm[Hg] Amanda ROBUCK [facility] 08-13-2022 12:58-0400 Heart rate 84 /min Amanda ROBUCK [facility] 08-13-2022 12:58-0400 SaO2% (BldA) [Mass fraction] 99 % Amanda ROBUCK [facility] 08-13-2022 12:58-0400 Systolic blood pressure 167 mm[Hg] Amanda ROBUCK [facility] 06-10-2022 07:30-0400 Body temperature 97.5 [degF] HOUSING MANAGEMENT REPRESENTATIVE Amanda Robuck Work Phone: [facility] [place] 06-10-2022 07:30-0400 Diastolic blood pressure 92 mm[Hg] HOUSING MANAGEMENT REPRESENTATIVE Amanda Robuck Work Phone: [facility] [place] 06-10-2022 07:30-0400 Heart rate 78 /min HOUSING MANAGEMENT REPRESENTATIVE Amanda Robuck Work Phone: [facility] [place] 06-10-2022 07:30-0400 Respiratory rate 18 /min HOUSING MANAGEMENT REPRESENTATIVE Amanda Robuck Work Phone: [facility] [place] 06-10-2022 07:30-0400 SaO2% (BldA) [Mass fraction] 97 % HOUSING MANAGEMENT REPRESENTATIVE Amanda Robuck Work Phone: [facility] [place] 06-10-2022 07:30-0400 Systolic blood pressure 132 mm[Hg] HOUSING MANAGEMENT REPRESENTATIVE Amanda Robuck Work Phone: [facility] [place] 06-08-2022 14:09-0400 Body height 157.48 cm HOUSING MANAGEMENT REPRESENTATIVE Amanda Robuck Work Phone: [facility] [place] 06-07-2022 17:31-0400 Body weight 72.57 kg HOUSING MANAGEMENT REPRESENTATIVE Amanda Robuck Work Phone: [facility] [place] 06-07-2022 15:22-0400 Diastolic blood pressure 91 mm[Hg] HOUSING MANAGEMENT REPRESENTATIVE Amanda Robuck Work Phone: [facility] [place] 06-07-2022 15:22-0400 Heart rate 90 /min HOUSING MANAGEMENT REPRESENTATIVE Amanda Robuck Work Phone: [facility] [place] 06-07-2022 15:22-0400 Respiratory rate 24 /min HOUSING MANAGEMENT REPRESENTATIVE Amanda Robuck Work Phone: [facility] [place] 06-07-2022 15:22-0400 SaO2% (BldA) [Mass fraction] 97 % HOUSING MANAGEMENT REPRESENTATIVE Amanda Robuck Work Phone: [facility] [place] 06-07-2022 15:22-0400 Systolic blood pressure 151 mm[Hg] HOUSING MANAGEMENT REPRESENTATIVE Amanda Robuck Work Phone: [facility] [place] 06-07-2022 08:57-0400 Body height 157.48 cm HOUSING MANAGEMENT REPRESENTATIVE Amanda Robuck Work Phone: [facility] [place] 06-07-2022 08:57-0400 Body temperature 98.3 [degF] HOUSING MANAGEMENT REPRESENTATIVE Amanda Robuck Work Phone: [facility] [place] 06-07-2022 08:57-0400 Body weight 73.02 kg HOUSING MANAGEMENT REPRESENTATIVE Amanda Robuck Work Phone: [facility] [place] 04-24-2022 14:45-0400 Body height 160.02 cm Imad Asaad Other [facility] [employer] Other 04-24-2022 14:45-0400 Body mass index (BMI) [Ratio] 29.23 kg/m2 Imad Asaad Other [employer] Other 04-24-2022 14:45-0400 Body weight 74.84 kg Imad Asaad Other [employer] Other 04-24-2022 14:45-0400 Diastolic blood pressure 56 mm[Hg] Imad Asaad Other [employer] Other 04-24-2022 14:45-0400 Systolic blood pressure 109 mm[Hg] Imad Asaad Other [employer] Other 04-11-2022 11:11-0500 Diastolic blood pressure 70 mm[Hg] HOUSING MANAGEMENT REPRESENTATIVE Amanda Robuck Work Phone: [facility] [place] 04-11-2022 11:11-0500 Heart rate 72 /min HOUSING MANAGEMENT REPRESENTATIVE Amanda Robuck Work Phone: [facility] [place] 04-11-2022 11:11-0500 Respiratory rate 16 /min HOUSING MANAGEMENT REPRESENTATIVE Amanda Robuck Work Phone: [facility] [place] 04-11-2022 11:11-0500 SaO2% (BldA) [Mass fraction] 98 % HOUSING MANAGEMENT REPRESENTATIVE Amanda Robuck Work Phone: [facility] [place] 04-11-2022 11:11-0500 Systolic blood pressure 148 mm[Hg] HOUSING MANAGEMENT REPRESENTATIVE Amanda Robuck Work Phone: [facility] [place] 04-11-2022 08:29-0500 Body height 157.48 cm HOUSING MANAGEMENT REPRESENTATIVE Amanda Robuck Work Phone: [facility] [place] 04-11-2022 08:29-0500 Body temperature 97.5 [degF] HOUSING MANAGEMENT REPRESENTATIVE Amanda Robuck Work Phone: [facility] [place] 04-11-2022 08:29-0500 Body weight 74.84 kg HOUSING MANAGEMENT REPRESENTATIVE Amanda Robuck Work Phone: [facility] [place] 04-04-2022 09:31-0500 Diastolic blood pressure 59 mm[Hg] HOUSING MANAGEMENT REPRESENTATIVE Amanda Robuck Work Phone: [facility] [place] 04-04-2022 09:31-0500 Heart rate 85 /min HOUSING MANAGEMENT REPRESENTATIVE Amanda Robuck Work Phone: [facility] [place] 04-04-2022 09:31-0500 Respiratory rate 20 /min HOUSING MANAGEMENT REPRESENTATIVE Amanda Robuck Work Phone: [facility] [place] 04-04-2022 09:31-0500 SaO2% (BldA) [Mass fraction] 93 % HOUSING MANAGEMENT REPRESENTATIVE Amanda Robuck Work Phone: [facility] [place] 04-04-2022 09:31-0500 Systolic blood pressure 110 mm[Hg] HOUSING MANAGEMENT REPRESENTATIVE Amanda Robuck Work Phone: [facility] [place] 04-03-2022 21:50-0500 Body height 170.18 cm HOUSING MANAGEMENT REPRESENTATIVE Amanda Robuck Work Phone: [facility] [place] 04-03-2022 21:50-0500 Body weight 81.6 kg HOUSING MANAGEMENT REPRESENTATIVE Amanda Robuck Work Phone: [facility] [place] 04-03-2022 21:50-0500 Inhaled oxygen flow rate 15 L/min HOUSING MANAGEMENT REPRESENTATIVE Amanda Robuck Work Phone: [facility] [place] 04-03-2022 08:06-0500 Body height 157.48 cm HOUSING MANAGEMENT REPRESENTATIVE Amanda Robuck Work Phone: [facility] [place] 04-03-2022 08:06-0500 Body temperature 96.9 [degF] HOUSING MANAGEMENT REPRESENTATIVE Amanda Robuck Work Phone: [phone] [place] [address] 04-03-2022 08:06-0500 Body weight 74.84 kg HOUSING MANAGEMENT REPRESENTATIVE Amanda Robuck Work Phone: [phone] [place] [address] 04-03-2022 08:06-0500 Diastolic blood pressure 86 mm[Hg] HOUSING MANAGEMENT REPRESENTATIVE Amanda Robuck Work Phone: [facility] [place] 04-03-2022 08:06-0500 Heart rate 74 /min HOUSING MANAGEMENT REPRESENTATIVE Amanda Robuck Work Phone: [facility] [place] 04-03-2022 08:06-0500 Respiratory rate 18 /min HOUSING MANAGEMENT REPRESENTATIVE Amanda Robuck Work Phone: [facility] [place] 04-03-2022 08:06-0500 SaO2% (BldA) [Mass fraction] 98 % HOUSING MANAGEMENT REPRESENTATIVE Amanda Robuck Work Phone: [facility] [place] 04-03-2022 08:06-0500 Systolic blood pressure 124 mm[Hg] HOUSING MANAGEMENT REPRESENTATIVE Amanda Robuck Work Phone: [facility] [place] 04-01-2022 18:19-0500 Body height 157.48 cm HOUSING MANAGEMENT REPRESENTATIVE Amanda Robuck Work Phone: [facility] [place] 04-01-2022 18:19-0500 Body temperature 99.4 [degF] HOUSING MANAGEMENT REPRESENTATIVE Amanda Robuck Work Phone: [facility] [place] 04-01-2022 18:19-0500 Body weight 74.84 kg HOUSING MANAGEMENT REPRESENTATIVE Amanda Robuck Work Phone: [facility] [place] 04-01-2022 18:19-0500 Diastolic blood pressure 99 mm[Hg] HOUSING MANAGEMENT REPRESENTATIVE Amanda Robuck Work Phone: [facility] [place] 04-01-2022 18:19-0500 Heart rate 111 /min HOUSING MANAGEMENT REPRESENTATIVE Amanda Robuck Work Phone: [facility] [place] 04-01-2022 18:19-0500 Respiratory rate 18 /min HOUSING MANAGEMENT REPRESENTATIVE Amanda Robuck Work Phone: [facility] [place] 04-01-2022 18:19-0500 SaO2% (BldA) [Mass fraction] 100 % HOUSING MANAGEMENT REPRESENTATIVE Amanda Robuck Work Phone: [facility] [place] 04-01-2022 18:19-0500 Systolic blood pressure 143 mm[Hg] HOUSING MANAGEMENT REPRESENTATIVE Amanda Robuck Work Phone: [facility] [place] 03-19-2022 06:50-0500 Diastolic blood pressure 78 mm[Hg] HOUSING MANAGEMENT REPRESENTATIVE Amanda Robuck Work Phone: [facility] [place] 03-19-2022 06:50-0500 Heart rate 82 /min HOUSING MANAGEMENT REPRESENTATIVE Amanda Robuck Work Phone: [facility] [place] 03-19-2022 06:50-0500 Respiratory rate 18 /min HOUSING MANAGEMENT REPRESENTATIVE Amanda Robuck Work Phone: [facility] [place] 03-19-2022 06:50-0500 SaO2% (BldA) [Mass fraction] 99 % HOUSING MANAGEMENT REPRESENTATIVE Amanda Robuck Work Phone: [facility] [place] 03-19-2022 06:50-0500 Systolic blood pressure 124 mm[Hg] HOUSING MANAGEMENT REPRESENTATIVE Amanda Robuck Work Phone: [facility] [place] 03-19-2022 05:27-0500 Body height 157.48 cm HOUSING MANAGEMENT REPRESENTATIVE Amanda Robuck Work Phone: [facility] [place] 03-19-2022 05:27-0500 Body temperature 97 [degF] HOUSING MANAGEMENT REPRESENTATIVE Amanda Robuck Work Phone: [facility] [place] 03-19-2022 05:27-0500 Body weight 74.84 kg LOGAN Barrios Work Phone: [facility] [place] 03-13-2022 12:59-0500 Body temperature 98.8 [degF] Declan Goel MD Work Phone: [employer] 03-13-2022 12:58-0500 Diastolic blood pressure 92 mm[Hg] Declan Goel MD Work Phone: [employer] 03-13-2022 12:58-0500 Systolic blood pressure 131 mm[Hg] Declan Goel MD Work Phone: [employer] [facility] 03-13-2022 12:57-0500 Heart rate 114 /min Declan Goel MD Work Phone: [employer] 03-13-2022 12:57-0500 Respiratory rate 28 /min Declan Goel MD Work Phone: [employer] 03-13-2022 12:57-0500 SaO2% (BldA) [Mass fraction] 92 % Declan Goel MD Work Phone: [employer] 03-13-2022 03:48-0500 Diastolic blood pressure 76 mm[Hg] Phu Gonzalezd DO Work Phone: [employer] [facility] 03-13-2022 03:48-0500 Heart rate 105 /min Phu Mj DO Work Phone: [employer] [facility] 03-13-2022 03:48-0500 Respiratory rate 16 /min Phu Mj DO Work Phone: [employer] [facility] 03-13-2022 03:48-0500 SaO2% (BldA) [Mass fraction] 95 % Phutiffani Perryiard DO Work Phone: [facility] 03-13-2022 03:48-0500 Systolic blood pressure 133 mm[Hg] Phu Barker DO Work Phone: [employer] 03-12-2022 23:32-0500 Body temperature 98.4 [degF] Phu Barker DO Work Phone: [employer] 03-12-2022 14:08-0500 Body height 154.9 cm Phu Barker DO Work Phone: [employer] 03-12-2022 14:08-0500 Body mass index (BMI) [Ratio] 30.23 kg/m2 Phu Barker DO Work Phone: [employer] 03-12-2022 14:08-0500 Body weight 72.58 kg Phu Barker DO Work Phone: [facility] [employer] 03-09-2022 07:03-0500 Body height 157.48 cm LOGAN Belley Robuck Work Phone: [facility] [place] 03-09-2022 07:03-0500 Body temperature 97.1 [degF] HOUSING MANAGEMENT REPRESENTATIVE Amanda Robuck Work Phone: [facility] [place] 03-09-2022 07:03-0500 Body weight 78.6 kg HOUSING MANAGEMENT REPRESENTATIVE Amanda Robuck Work Phone: [facility] [place] 03-09-2022 07:03-0500 Diastolic blood pressure 82 mm[Hg] HOUSING MANAGEMENT REPRESENTATIVE Amanda Robuck Work Phone: [facility] [place] 03-09-2022 07:03-0500 Heart rate 73 /min HOUSING MANAGEMENT REPRESENTATIVE Amanda Robuck Work Phone: [facility] [place] 03-09-2022 07:03-0500 Respiratory rate 18 /min HOUSING MANAGEMENT REPRESENTATIVE Amanda Robuck Work Phone: [facility] [place] 03-09-2022 07:03-0500 SaO2% (BldA) [Mass fraction] 98 % HOUSING MANAGEMENT REPRESENTATIVE Amanda Robuck Work Phone: [facility] [place] 03-09-2022 07:03-0500 Systolic blood pressure 134 mm[Hg] HOUSING MANAGEMENT REPRESENTATIVE Amanda Robuck Work Phone: [facility] [place] 03-05-2022 20:34-0500 Diastolic blood pressure 79 mm[Hg] HOUSING MANAGEMENT REPRESENTATIVE Amanda Robuck Work Phone: [facility] [place] 03-05-2022 20:34-0500 Heart rate 82 /min HOUSING MANAGEMENT REPRESENTATIVE Amanda Robuck Work Phone: [facility] [place] 03-05-2022 20:34-0500 Respiratory rate 23 /min HOUSING MANAGEMENT REPRESENTATIVE Amanda Robuck Work Phone: [facility] [place] 03-05-2022 20:34-0500 SaO2% (BldA) [Mass fraction] 100 % HOUSING MANAGEMENT REPRESENTATIVE Amanda Robuck Work Phone: [facility] [place] 03-05-2022 20:34-0500 Systolic blood pressure 126 mm[Hg] HOUSING MANAGEMENT REPRESENTATIVE Amanda Robuck Work Phone: [facility] [place] 03-05-2022 13:40-0500 Body height 157.48 cm HOUSING MANAGEMENT REPRESENTATIVE Amanda Robuck Work Phone: [facility] [place] 03-05-2022 13:40-0500 Body temperature 97.8 [degF] HOUSING MANAGEMENT REPRESENTATIVE Amanda Robuck Work Phone: [facility] [place] 03-05-2022 13:40-0500 Body weight 77.11 kg HOUSING MANAGEMENT REPRESENTATIVE Amanda Robuck Work Phone: [facility] [place] 02-21-2022 07:20-0500 Diastolic blood pressure 70 mm[Hg] HOUSING MANAGEMENT REPRESENTATIVE Amanda Robuck Work Phone: [facility] [place] 02-21-2022 07:20-0500 Heart rate 89 /min HOUSING MANAGEMENT REPRESENTATIVE Amanda Robuck Work Phone: [facility] [place] 02-21-2022 07:20-0500 Respiratory rate 16 /min HOUSING MANAGEMENT REPRESENTATIVE Amanda Robuck Work Phone: [facility] [place] 02-21-2022 07:20-0500 SaO2% (BldA) [Mass fraction] 93 % HOUSING MANAGEMENT REPRESENTATIVE Amanda Robuck Work Phone: [facility] [place] 02-21-2022 07:20-0500 Systolic blood pressure 127 mm[Hg] HOUSING MANAGEMENT REPRESENTATIVE Amanda Robuck Work Phone: [facility] [place] 02-20-2022 19:43-0500 Body temperature 97.1 [degF] HOUSING MANAGEMENT REPRESENTATIVE Amanda Robuck Work Phone: [facility] [place] 02-20-2022 18:51-0500 Body height 157.48 cm HOUSING MANAGEMENT REPRESENTATIVE Amanda Robuck Work Phone: [facility] [place] 02-20-2022 18:51-0500 Body weight 78.9 kg HOUSING MANAGEMENT REPRESENTATIVE Amanda Robuck Work Phone: [phone] [place] [address] 02-19-2022 11:20-0500 Body height 157.48 cm HOUSING MANAGEMENT REPRESENTATIVE Amanda Robuck Work Phone: [facility] [place] 02-19-2022 11:20-0500 Body temperature 98 [degF] HOUSING MANAGEMENT REPRESENTATIVE Amanda Robuck Work Phone: [facility] [place] 02-19-2022 11:20-0500 Body weight 79.15 kg HOUSING MANAGEMENT REPRESENTATIVE Amanda Robuck Work Phone: [facility] [place] 02-19-2022 11:20-0500 Diastolic blood pressure 95 mm[Hg] HOUSING MANAGEMENT REPRESENTATIVE Amanda Robuck Work Phone: [facility] [place] 02-19-2022 11:20-0500 Heart rate 94 /min HOUSING MANAGEMENT REPRESENTATIVE Amanda Robuck Work Phone: [facility] [place] 02-19-2022 11:20-0500 Respiratory rate 18 /min HOUSING MANAGEMENT REPRESENTATIVE Amanda Robuck Work Phone: [facility] [place] 02-19-2022 11:20-0500 SaO2% (BldA) [Mass fraction] 95 % HOUSING MANAGEMENT REPRESENTATIVE Amanda Robuck Work Phone: [facility] [place] 02-19-2022 11:20-0500 Systolic blood pressure 149 mm[Hg] HOUSING MANAGEMENT REPRESENTATIVE Amanda Robuck Work Phone: [facility] [place] 10-06-2021 16:23-0400 Diastolic blood pressure 81 mm[Hg] Varun ZURITA [facility] 10-06-2021 16:23-0400 Heart rate 53 /min Varun ZURITA [facility] 10-06-2021 16:23-0400 Mean blood pressure 99 mm[Hg] Varun ZURITA [facility] 10-06-2021 16:23-0400 SaO2% (BldA) [Mass fraction] 96 % Varun ZURITA [facility] 10-06-2021 16:23-0400 Systolic blood pressure 135 mm[Hg] Varun ZURITA [facility] 09-19-2021 10:16-0400 Blood Pressure Location Amanda ROBUCK [facility] 09-19-2021 10:16-0400 Diastolic blood pressure 78 mm[Hg] Amanda ROBUCK [facility] 09-19-2021 10:16-0400 Heart rate 86 /min Amanda ROBUCK [facility] 09-19-2021 10:16-0400 Systolic blood pressure 114 mm[Hg] Amanda ROBUCK [facility] 07-26-2021 21:00-0400 Diastolic blood pressure 98 mm[Hg] Isai Hall [facility] 07-26-2021 21:00-0400 Heart rate 86 /min Isai Rafael [facility] 07-26-2021 21:00-0400 Mean blood pressure 106 mm[Hg] Isai Rafael [facility] 07-26-2021 21:00-0400 Respiratory rate 18 /min Isai Rafael [facility] 07-26-2021 21:00-0400 SaO2% (BldA) [Mass fraction] 100 % Isai Rafael [facility] 07-26-2021 21:00-0400 Systolic blood pressure 123 mm[Hg] Isai Rafael [facility] 07-26-2021 20:00-0400 Hourly Rounding Isai Hall [facility] 07-26-2021 20:00-0400 Nursing Progress Note Reason Other: TO ct Isai Rafael [facility] 07-26-2021 20:00-0400 Promise to Return Isai Rafael [facility] 07-26-2021 19:00-0400 Hourly Rounding Isai Rafael [facility] 07-26-2021 19:00-0400 Promise to Return Isai Rafael [facility] 07-26-2021 18:11-0400 Body temperature 98.24 [degF] Isai Rafael [facility] 07-26-2021 18:11-0400 Diastolic blood pressure 103 mm[Hg] Isai Rafael [facility] 07-26-2021 18:11-0400 Heart rate 103 /min Isai Rafael [facility] 07-26-2021 18:11-0400 Respiratory rate 16 /min Isai Hall [facility] 07-26-2021 18:11-0400 SaO2% (BldA) [Mass fraction] 97 % Isai Hall [facility] 07-26-2021 18:11-0400 Systolic blood pressure 118 mm[Hg] Isai Hall [facility] 07-04-2021 15:06-0400 Diastolic blood pressure 77 mm[Hg] Amanda BARRIOS [facility] 07-04-2021 15:06-0400 Heart rate 86 /min Amanda BARRIOS [facility] 07-04-2021 15:06-0400 Systolic blood pressure 122 mm[Hg] Amanda BARRIOS [facility] 05-03-2021 10:00-0400 Diastolic blood pressure 86 mm[Hg] Zaire Osuna MD Work Phone: [facility] 05-03-2021 10:00-0400 Systolic blood pressure 131 mm[Hg] Zaire Osuna MD Work Phone: [facility] 05-03-2021 09:31-0400 Body height 157.5 cm Zaire [facility]una [facility] 05-03-2021 09:31-0400 Body mass index (BMI) [Ratio] 31.09 kg/m2 Zaire Osuna MD Work Phone: [employer] 05-03-2021 09:31-0400 Body temperature 98.2 [degF] Zaire Osuna MD Work Phone: [employer] 05-03-2021 09:31-0400 Body weight 77.11 kg Zaire Osuna MD Work Phone: [employer] 05-03-2021 09:31-0400 Heart rate 103 /min Zaire Osuna MD Work Phone: [employer] 05-03-2021 09:31-0400 Respiratory rate 16 /min Zaire Osuna MD Work Phone: [employer] 05-03-2021 09:31-0400 SaO2% (BldA) [Mass fraction] 96 % Zaire Osuna MD Work Phone: [employer] 05-03-2021 03:17-0400 Diastolic blood pressure 76 mm[Hg] Declan Bradshaw MD Work Phone: [employer] 05-03-2021 03:17-0400 Heart rate 86 /min Declan Bradshaw MD Work Phone: [employer] 05-03-2021 03:17-0400 SaO2% (BldA) [Mass fraction] 98 % Declan Bradshaw MD Work Phone: [employer] 05-03-2021 03:17-0400 Systolic blood pressure 107 mm[Hg] Declan Bradshaw MD Work Phone: [employer] 05-02-2021 23:07-0400 Body temperature 98.71 [degF] Declan Bradshaw MD Work Phone: [employer] 05-02-2021 23:04-0400 Body mass index (BMI) [Ratio] 31.09 kg/m2 Declan Bradshaw MD Work Phone: [employer] 05-02-2021 23:04-0400 Body weight 77.11 kg Declan Bradshaw MD Work Phone: [employer] 05-02-2021 23:04-0400 Respiratory rate 20 /min Declan Bradshaw MD Work Phone: [employer] 09-22-2020 19:10-0400 Body height 157.4 cm Elvis Joyazrekha Other Phone: [facility] 09-22-2020 19:10-0400 Body temperature 96.08 [degF] Elvis Benitaazarian Other Phone: [facility] 09-22-2020 19:10-0400 Diastolic blood pressure 99 mm[Hg] Elvis Benitaazrekha Other Phone: [facility] 09-22-2020 19:10-0400 Heart rate 90 /min Elvis Joyazarian Other Phone: [facility] 09-22-2020 19:10-0400 Respiratory rate 20 /min Elvis Joytrista Other Phone: [facility] 09-22-2020 19:10-0400 SaO2% (BldA) [Mass fraction] 97 % Elvisgold Joytrista Other Phone: [facility] 09-22-2020 19:10-0400 Systolic blood pressure 131 mm[Hg] Elvis Joytrista Other Phone: [facility] 03-11-2020 22:20-0500 Pulse (Heart Rate) 95 /min [facility] [place] 03-11-2020 22:20-0500 Pulse Oximetry 98 % [facility] [place] 03-11-2020 22:14-0500 BMI (Body Mass Index) 32.74 kg/m2 [facility] [place] 03-11-2020 22:14-0500 Body weight 81.19 kg [facility] [place] 03-11-2020 22:14-0500 Height 157.5 cm [facility] [place] 03-11-2020 22:08-0500 Body Temperature 99.3 [degF] [facility] 03-11-2020 22:08-0500 BP Diastolic 81 mm[Hg] [facility] [place] 03-11-2020 22:08-0500 BP Systolic 121 mm[Hg] Crescencio [facility] , [place] 03-11-2020 22:08-0500 Respiratory Rate 18 /min Crescencio [facility] 03-10-2020 15:50-0500 BMI (Body Mass Index) 32.74 kg/m2 [facility] 03-10-2020 15:50-0500 Body Temperature 98.01 [degF] [facility] 03-10-2020 15:50-0500 Body weight 81.[address] [facility] 03-10-2020 15:50-0500 BP Diastolic 79 mm[Hg] [facility] 03-10-2020 15:50-0500 BP Systolic 119 mm[Hg] [facility] 03-10-2020 15:50-[address] [facility] 03-10-2020 15:50-0500 Pulse (Heart Rate) 78 /min [facility] 03-10-2020 15:50-0500 Pulse Oximetry 97 % [facility] 03-10-2020 15:50-0500 Respiratory Rate 20 /min [facility] 02-24-2019 12:47-0500 BMI (Body Mass Index) 310.02 kg/m2 Nini Wolf [facility] Work Phone: 02-24-2019 12:47-0500 Body weight 768.85 kg Nini Wolf [facility] rnal Medicine Work Phone: 02-24-2019 12:47-0500 BP Diastolic 80 mm[Hg] Nini Wolf [facility] Medicine Work Phone: Comment on above: Location: [facility] Position: Sitting 02-24-2019 12:47-0500 BP Systolic 134 mm[Hg] Nini Wolf [facility] Work Phone: Comment on above: Location: E; Position: Sitting 02-24-2019 12:47-0500 BSA (Body Surface Area) 4.74 m2 Nini Wolf [facility] Internal Medicine Work Phone: 02-24-2019 12:47-0500 Height 157.48 cm Nini [facility] rnal Medicine Work Phone: 02-24-2019 12:47-0500 Pulse (Heart Rate) 80 /min Nini Wolf [facility] I nternal Medicine Work Phone: 02-17-2019 12:24-0500 BMI (Body Mass Index) 30 kg/m2 Nini Wolf [facility] Internal Medicine Work Phone: 02-17-2019 12:24-0500 Body weight 74.39 kg iNni Wolf [facility] rnal Medicine Work Phone: 02-17-2019 12:24-0500 BP Diastolic 84 mm[Hg] [facility] Work Phone: 02-17-2019 12:24-0500 BP Systolic 130 mm[Hg] [facility] Work Phone: 02-17-2019 12:24-0500 BSA (Body Surface Area) 1.76 m2 Nini [facility] Work Phone: 02-17-2019 12:24-0500 Height 157.48 cm Nini [facility] rnal Medicine Work Phone: 02-17-2019 12:24-0500 Pulse (Heart Rate) 76 /min Nini [facility] I nternal Medicine Work Phone: 12-20-2018 21:49-0500 BP Diastolic 68 mm[Hg] Luis [facility] , [place] 12-20-2018 21:49-0500 BP Systolic 116 mm[Hg] Luis [facility] [place] 12-20-2018 21:49-0500 Pulse Oximetry 98 % Luis Mo [facility] , [place] 12-20-2018 21:04-0500 BMI (Body Mass Index) 29.48 kg/m2 Luis Boggs [facility], [place] 12-20-2018 21:04-0500 Body Temperature 97.5 [degF] Luis Boggs [facility] 12-20-2018 21:04-0500 Body weight 70.76 kg [facility] , [place] 12-20-2018 21:04-0500 Height 154.9 cm [facility] , [place] 12-20-2018 21:04-0500 Pulse (Heart Rate) 93 /min [facility], [place] 12-20-2018 21:04-0500 Respiratory Rate 20 /min Luis Mo [facility], [place] 11-01-2018 17:40-0400 BP Diastolic 93 mm[Hg] [place], [place] 11-01-2018 17:40-0400 BP Systolic 143 mm[Hg] [place] 11-01-2018 17:37-0400 BMI (Body Mass Index) 28.89 kg/m2 [place], [place] 11-01-2018 17:37-0400 Body Temperature 97.9 [degF] [place] 11-01-2018 17:37-0400 Body weight 69.36 kg [place] 11-01-2018 17:37-0400 Height 154.9 cm [place] 11-01-2018 17:37-0400 Pulse (Heart Rate) 84 /min [place], [place] 11-01-2018 17:37-0400 Pulse Oximetry 99 % [place] 11-01-2018 17:37-0400 Respiratory Rate 18 /min [place] Encounters Encounter Date Encounter Type Care Provider Facility Start: 08-21-2023 ambulatory Amanda BARRIOS Facility :[facility] Start: 08-12-2023 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 Amanda BARRIOS Fac lity:[id number] Start: 08-07-2023 Non-patient / Non-visit Diamante Cleveland Work Phone: [facility] Work Phone: Start: 08-06-2023 End: 08-10-2023 Evaluation and management of inpatient Diamante Cleveland Work Phone: [address] Work Phone: Start: 08-06-2023 End: 08-06-2023 Emergency department patient visit Eric Forbes [facility] Start: 08-06-2023 ambulatory Gautam Burrows Facility:[facility] [place] Start: 07-14-2023 End: 07-14-2023 Lab Drop off Mike Spear [facility] Start: 07-14-2023 End: 07-14-2023 ambulatory Mike Spear Facility:[facility] [place] [place] Start: 07-14-2023 End: 07-14-2023 Patient encounter procedure Mike Spear [facility] Start: 07-05-2023 Emergency department patient visit Isai Hall Facility:[facility] [place] [place] Start: 07-05-2023 Registered Recurring Diamante Kris bergeron Work Phone: [facility] Start: 07-05-2023 End: 07-05-2023 Emergency department patient visit Isai Hall [facility] Start: 07-03-2023 End: 07-03-2023 Emergency department patient visit Kaushik Sparks Facility:[facility] [place] [place] Start: 07-03-2023 End: 07-03-2023 Emergency department patient visit Kaushik Sparks [facility] Start: 06-30-2023 End: 07-01-2023 Emergency department patient visit Isai Hall Facility:[facility] [place] [place] Start: 06-30-2023 End: 06-30-2023 Emergency department patient visit Isai Hall [facility] Start: 06-20-2023 ambulatory Amanda BARRIOS Facility :[facility] Start: 06-17-2023 End: 06-18-2023 ambulatory Mike Spear Facility:[facility] [place] [place] Start: 06-17-2023 End: 06-17-2023 Lab Drop off Mike Spear [facility] Start: 06-17-2023 End: 06-17-2023 Patient encounter procedure Mike Spear [facility] Start: 06-17-2023 ambulatory Mike Spear Facili ty:[facility] Start: 06-10-2023 ambulatory Amanda E JOANA Facility :[facility] Start: 06-04-2023 ambulatory Amanda BARRIOS Facility :[facility] Start: 06-03-2023 End: 06-04-2023 Emergency department patient visit Nerytono Lurdes Royer Facility:[facility] [place] [place] Start: 06-03-2023 End: 06-03-2023 Emergency department patient visit Nerytono Lurdes Jonhroseanne [facility] Start: 05-01-2023 ambulatory Amanda BARRIOS Facility :[facility] Start: 04-25-2023 End: 04-25-2023 Emergency department patient visit HOUSING MANAGEMENT REPRESENTATIVEDesean Belley Joana Work Phone: [facility] Work Phone: Start: 04-19-2023 End: 04-20-2023 Emergency department patient visit Kerry Linton Facility:[facility] [place] [place] Start: 04-19-2023 End: 04-20-2023 Emergency department patient visit Kerry Chatman Jonhroseanne [facility] Start: 04-08-2023 End: 04-08-2023 Emergency department patient visit HOUSING MANAGEMENT REPRESENTATIVE Amanda Barrios Work Phone: [facility] Work Phone: Start: 04-06-2023 End: 04-06-2023 Emergency department patient visit Diamante Cleveland Work Phone: [facility] Work Phone: Start: 03-20-2023 ambulatory Amanda E ROBUCK Facility :[facility] Start: 03-17-2023 End: 03-17-2023 Emergency department patient visit Diamnate Cleveland Work Phone: [facility] Work Phone: Start: 03-12-2023 End: 03-12-2023 Emergency department patient visit Diamante Cleveland Work Phone: [facility] Work Phone: Start: 03-04-2023 End: 03-04-2023 Emergency department patient visit DO Ari More Work Phone: [facility] Work Phone: Start: 03-04-2023 ambulatory Amanda E ROBUCK Facility :[facility] Start: 01-28-2023 ambulatory Amanda E ROBUCK Facility :[facility] Start: 01-25-2023 End: 01-25-2023 Emergency department patient visit DO Ari More Work Phone: [facility] Work Phone: Start: 01-19-2023 End: 01-19-2023 Emergency department patient visit DO Ari More Work Phone: [facility] Work Phone: Start: 01-17-2023 End: 01-18-2023 ambulatory Amanda BARRIOS Facility:[facility] Start: 01-17-2023 End: 01-17-2023 Patient encounter procedure Amanda BARRIOS [facility] Start: 01-08-2023 End: 01-08-2023 Emergency department patient visit HOUSING MANAGEMENT REPRESENTATIVE Amanda Barrios Work Phone: [facility]-Emergency Room Work Phone: Start: 01-07-2023 End: 01-07-2023 Emergency department patient visit Darren SCharsima Guzman Facility:[facility] [place] Start: 2023 Registered Recurring Diamante bergeron Work Phone: [facility] Start: 2023 End: 01-06-2023 Evaluation and management of inpatient Francisco Cruz Facility:[facility] [place] Start: 2023 End: 01-06-2023 Evaluation and management of inpatient Azra Lurdes [facility] Start: 01-02-2023 End: 01-02-2023 Emergency department patient visit Darren Ghazala Guzman Facility:[facility] [place] Start: 01-02-2023 End: 01-02-2023 Emergency department patient visit Darren Ghazala Guzman [facility] Start: 12-14-2022 End: 12-17-2022 Emergency department patient visit NINI MCCOLLUM [facility] Start: 12-14-2022 End: 12-16-2022 Emergency department patient visit Amy Steele MD Work Phone: [facility] Emergency Medicine Comment on above: Alcohol withdrawal s yndrome with complication (CMS/HCC) (Primary Dx); Bipolar affective disorder, currently manic, moderate (CMS/HCC) Start: 12-11-2022 End: 12-11-2022 Emergency department patient visit LOGAN Barrios Work Phone: [facility] Work Phone: Start: 12-10-2022 End: 12-10-2022 Emergency department patient visit Eric Forbes Facility:[facility] [place] Start: 12-10-2022 End: 12-10-2022 Emergency department patient visit Eric Forbes [facility] Start: 12-10-2022 End: 12-10-2022 Emergency department patient visit Eric Forbes Facility:[facility] [place] Start: 12-10-2022 End: 12-10-2022 Emergency department patient visit Eric Forbes [facility] Start: 11-30-2022 End: 12-01-2022 ambulatory [facility] Facility:[facility] [place] Start: 11-30-2022 End: 12-01-2022 ambulatory [facility] Facility: [facility] Start: 11-30-2022 End: 11-30-2022 Lab Drop off [facility] Start: 11-30-2022 End: 11-30-2022 Patient encounter procedure [facility] Start: 11-14-2022 End: 11-15-2022 ambulatory JADA COLBY Facility:[facility] [place] Start: 11-14-2022 End: 11-14-2022 Lab Drop off JADA COLBY [facility] Start: 11-13-2022 End: 11-14-2022 ambulatory Birgit COOPER Facility:[facility] [place] Start: 11-13-2022 End: 11-13-2022 Patient encounter procedure Birgit COOPER [facility] Start: 11-11-2022 End: 11-11-2022 Emergency department patient visit Isai Hall Facility:[facility] [place] Start: 11-04-2022 End: 11-04-2022 Emergency department patient visit Gladys Saini Facility:[facility] [place] Start: 11-04-2022 End: 11-04-2022 Emergency department patient visit Gladys Saini [facility] Start: 10-17-2022 ambulatory Amanda BARRIOS Facility :[facility] Start: 10-11-2022 End: 10-11-2022 Patient encounter procedure HOUSING MANAGEMENT REPRESENTATIVE Amanda Barrios Work Phone: [facility] Work Phone: Start: 10-11-2022 End: 10-11-2022 ambulatory LOGAN Barrios Work Phone: [facility] Work Phone: Start: 10-05-2022 End: 10-06-2022 ambulatory [facility] Facility:[facility] Start: 09-06-2022 End: 09-06-2022 Emergency department patient visit LOGAN Barrios Work Phone: [facility] Work Phone: Start: 08-28-2022 End: 08-29-2022 ambulatory Lorie Gudimella Facility:[facility] [place] Start: 08-28-2022 End: 08-29-2022 ambulatory Lorie Gudimella Facility:[facility] Start: 08-28-2022 End: 08-28-2022 Lab Drop off Lorie Gudimella [facility] Start: 08-28-2022 End: 08-28-2022 Patient encounter procedure Lorie Gudimella [facility] Start: 08-21-2022 End: 09-07-2022 ambulatory Amanda BARRIOS Facility::[id number] Start: 08-17-2022 End: 08-18-2022 ambulatory Francisco Harkinsdict Facility:[facility] [place] Start: 08-16-2022 End: 08-18-2022 Observation Azra Lurdes [facility] Start: 08-15-2022 End: 08-15-2022 Emergency department patient visit Isai Hall Facility:[facility] [place] Start: 08-13-2022 End: 08-14-2022 ambulatory Amanda BARRIOS Facility:[facility] Start: 08-13-2022 End: 08-13-2022 Patient encounter procedure Amanda BARRIOS [facility] Start: 06-07-2022 End: 06-10-2022 Evaluation and management of inpatient HOUSING MANAGEMENT REPRESENTATIVE Amanda Barrios Work Phone: [facility] Work Phone: Start: 04-26-2022 End: 04-26-2022 Patient encounter procedure Amanda BARRIOS [facility] Start: 04-24-2022 End: 04-24-2022 Patient encounter procedure HOUSING MANAGEMENT REPRESENTATIVE Amanda Barrios Work Phone: [facility] [place] Work Phone: Start: 04-24-2022 End: 04-24-2022 ambulatory HOUSING MANAGEMENT REPRESENTATIVE Amanda Barrios Work Phone: [facility] Work Phone: Start: 04-24-2022 Office outpatient ne w 45 minutes Imad Asaad [facility] Start: 04-11-2022 End: 04-11-2022 Emergency department patient visit HOUSING MANAGEMENT REPRESENTATIVE Amanda Barrios Work Phone: [facility] Work Phone: Start: 04-03-2022 End: 04-04-2022 Emergency department patient visit LOGAN Barrios Work Phone: [facility] Work Phone: Start: 04-03-2022 End: 04-03-2022 Emergency department patient visit LOGAN Barrios Work Phone: [facility] Work Phone: Start: 04-01-2022 End: 04-01-2022 Emergency department patient visit LOGAN Barrios Work Phone: [facility] Work Phone: Start: 03-28-2022 End: 03-28-2022 Patient encounter procedure Amanda BARRIOS [facility] Start: 03-19-2022 End: 03-19-2022 Emergency department patient visit LOGAN Barrios Work Phone: [facility] Work Phone: Start: 03-13-2022 End: 03-13-2022 Emergency department patient visit DECLAN GOEL [facility] Start: 03-13-2022 Encounter for other general examination DECLAN GOEL [facility] Start: 03-13-2022 End: 03-13-2022 Emergency department patient visit Declan Goel MD Work Phone: [facility] ED Comment on above: Encounter for psycho logical evaluation (Primary Dx) Start: 03-13-2022 End: 03-13-2022 Patient encounter status Declan Goel MD Work Phone: [facility] ED Start: 03-12-2022 End: 03-13-2022 Emergency department patient visit PHU BARKER [facility] Start: 03-12-2022 End: 03-13-2022 Emergency department patient visit Phu Barker Work Phone: [facility] ED Comment on above: Acute alcoholic into xication with complication (HCC) (Primary Dx) Start: 03-09-2022 End: 03-09-2022 Emergency department patient visit HOUSING MANAGEMENT REPRESENTATIVE Amanda Barrios Work Phone: [facility] Work Phone: Start: 03-05-2022 End: 03-05-2022 Emergency department patient visit HOUSING MANAGEMENT REPRESENTATIVE Amanda Barrios Work Phone: [facility] Work Phone: Start: 02-20-2022 End: 02-21-2022 Emergency department patient visit HOUSING MANAGEMENT REPRESENTATIVE Amanda Barrios Work Phone: [facility] Work Phone: Start: 02-19-2022 End: 02-19-2022 Emergency department patient visit HOUSING MANAGEMENT REPRESENTATIVE Amanda Barrios Work Phone: [facility] Work Phone: Start: 10-06-2021 End: 10-06-2021 Off-Site Varun [facility] Start: 09-19-2021 End: 09-19-2021 Patient encounter procedure Amanda BARRIOS [facility] Start: 07-27-2021 End: 07-28-[address] NONE LISTED REQUEST Facility: Start: 07-26-2021 End: 07-26-2021 Emergency department patient visit Isai Hall [facility] Start: 07-04-2021 End: 07-04-2021 Lab Drop off Amanda BARRIOS [facility] Start: 07-04-2021 End: 07-04-2021 Patient encounter procedure Amanda BARRIOS [facility] Start: 06-25-2021 End: 06-26-[address] NONE LISTED REQUEST Facility: Start: 05-31-2021 End: 06-01-2021 ambulatory MARIA E [facility] Start: 05-31-2021 End: 05-31-2021 Subsequent hospital visit by physician ABDIEL Jordan Start: 05-03-2021 End: 05-03-2021 Emergency department [facility] Start: 05-03-2021 End: 05-03-2021 Emergency department patient visit Zaire Osuna MD Work Phone: [facility] ED Comment on above: Temporary high blood pressure (Primary Dx) Start: 05-03-2021 End: 05-03-2021 Emergency department patient visit JOEL ALVES [facility] Start: 05-02-2021 End: 05-03-2021 Emergency department patient visit Declan Bradshaw MD Work Phone: [facility] ED Comment on above: Alcohol withdrawal s yndrome with complication (HCC) (Primary Dx) Start: 02-05-2021 End: 02-06-2021 Evaluation and management of inpatient Jeffery Bynum MD Facility:[facility] Start: 10-18-2020 Emergency department patient visit NINI WOLF [facility] Start: 09-22-2020 End: 09-22-2020 Emergency department patient visit Chilo Glover [facility] Start: 08-19-2020 AUDIT Nini Wolf Work Phone: [facility] Work Phone: Start: 03-15-2020 Patient encounter procedure Nini Wolf [facility] Work Phone: Start: 03-12-2020 End: 03-12-2020 Emergency department patient visit NINI WOLF [facility] Start: 03-11-2020 End: 03-11-2020 Emergency department patient visit Crescencio Emanuel Work Phone: [facility] ED Comment on above: Anxiety state (Prima ry Dx) Start: 03-10-2020 End: 03-10-2020 Emergency department patient visit [facility] Start: 03-10-2020 End: 03-10-2020 Emergency department patient visit [facility] Work Phone: [facility] ED Comment on above: Anxiety attack (Prim halima Dx) Start: 03-02-2020 Patient encounter procedure Nini Wolf [facility] Medicine Work Phone: Start: 01-20-2020 Patient encounter procedure Nini Wolf [facility] Work Phone: Start: 01-06-2020 Patient encounter procedure Nini Wolf [facility] Work Phone: Start: 12-23-2019 Patient encounter procedure Nini Wolf [facility] Work Phone: Start: 11-03-2019 Patient encounter procedure Nini Wolf [facility] Work Phone: Start: 10-23-2019 Patient encounter procedure Nini Wolf [facility] Work Phone: Start: 10-13-2019 Patient encounter procedure Nini Wolf [facility] Work Phone: Start: 09-08-2019 Patient encounter procedure Nini Wolf [facility] Work Phone: Start: 09-03-2019 Patient encounter procedure Nini Wolf [facility] Work Phone: Start: 08-13-2019 Patient encounter procedure Nini Wolf [facility] Work Phone: Start: 06-22-2019 Patient encounter procedure Nini Wolf [facility] Work Phone: Start: 05-20-2019 Patient encounter procedure Nini Wolf [facility] Work Phone: Start: 04-17-2019 Patient encounter procedure Nini Wolf [facility] Medicine Work Phone: Start: 04-03-2019 Patient encounter procedure Nini Wolf [facility] Work Phone: Start: 02-24-2019 Patient encounter procedure Nini Wolf [facility] Medicine Work Phone: Start: 02-17-2019 Patient encounter procedure Nini Wolf [facility] Medicine Work Phone: Start: 01-14-2019 Patient encounter procedure Nini Wolf [facility] Work Phone: Start: 12-20-2018 End: 12-20-2018 Emergency department patient visit Luis Mo Work Phone: [facility] ED Comment on above: Anxiety state (Prima ry Dx); Alcohol abuse Start: 11-01-2018 End: 11-01-2018 Emergency department patient visit Mundo Guzman Work Phone: [facility] ED Comment on above: Pain of left upper a rm (Primary Dx); Elevated d-dimer Start: 06-21-2018 End: 06-21-2018 Emergency department patient visit EL[facility] [place] Procedures Date Procedure Procedure Detail Performing Clinician Start: 04-08-2023 Urine culture HOUSING MANAGEMENT REPRESENTATIVE Sandoval y Joana Work Phone: Start: 03-17-2023 Urine culture Diamante B rubio Work Phone: Start: 01-25-2023 Streptococcus pyogen es antigen assay DO [facility] Work Phone: Start: 01-25-2023 Urine culture DO Ari More Work Phone: Start: 12-16-2022 SARS-COV-2 PCR, SCRE EN ASYMPTOMATIC NINI MCCOLLUM Start: 12-16-2022 Sars-cov-2 detection by dna/rna Jessica Mcdowell DO Work Phone: Start: 12-15-2022 DRUG SCREEN,URINE NINI BERNABE Start: 12-15-2022 Drug tst prsmv instr mnt chem analyzers pr date Jessica Mcdowell DO Work Phone: Start: 12-15-2022 DRUG SCREEN,URINE NINI BERNABE Start: 12-15-2022 HCG, URINE, QUALITATIVE NINI MCCOLLUM [...] Start: 12-14-2022 INSERT PERIPHERAL IV AM Y MCCOLLUM Start: 12-14-2022 SALINE LOCK IV NINI DINORAHL [...] Start: 10-11-2022 Ultrasound elastogra phy of liver HOUSING MANAGEMENT REPRESENTATIVE Amanda Barrios Work Phone: Start: 08-30-2022 Throat culture Amanda MICHEL Comment on above: Performed By: #### [id number] ####Verdugo [facility] [id number] [place] [address] Start: 06-07-2022 Plain chest X-ray LOGAN Barrios Work Phone: Start: 04-11-2022 Plain chest X-ray LOGAN Barrios Work Phone: Start: 04-03-2022 Blood culture for ba cteria, including anaerobic screen LOGAN Barrios Work Phone: Start: 04-03-2022 Plain X-ray of right hand LOGAN Barrios Work Phone: Start: 03-12-2022 Drug tst prsmv instr mnt chem analyzers pr date Phu Perryiard DO Work Phone: Start: 03-12-2022 Urnls dip stick/tabl et rgnt auto w/o microscopy Phu Soliman Mj DO Work Phone: Start: 03-12-2022 Ct head/brain w/o co ntrast material Phu Perryiard DO Work Phone: Start: 03-12-2022 Assay of acetaminophen Phu Perryiard DO Work Phone: Start: 03-12-2022 Assay of ethanol Phu Perryiard DO Work Phone: Start: 03-12-2022 Assay of salicylate Rachael Perryiard DO Work Phone: Start: 03-12-2022 Comprehensive metabo lic panel Phu Perryiard DO Work Phone: Start: 05-31-2021 25 hydroxy includes fractions if performed MARIA E BLANCAS Start: 05-31-2021 Lipid panel MARIA E POE Start: 05-31-2021 Comprehensive metabo lic panel Unknown Provider Result Start: 05-31-2021 Lipid panel Unknown Pr ovider Result Start: 05-03-2021 Ecg routine ecg w/le ast 12 lds w/i&r Zaire Osuna MD Work Phone: Start: 05-03-2021 Ct thorax w/contrast material Fredy Kay DO Work Phone: Start: 05-03-2021 BASIC METABOLIC PANE L W/ REFLEX TO MG FOR LOW K Fredy Kay DO Work Phone: Start: 05-02-2021 End: 05-03-2021 Gonadotropin chorionic qualitative Fredy Kay DO Work Phone: Start: 03-02-2020 Comprehensive metabo lic 2000 panel Nini Wolf Start: 03-02-2020 Hemoglobin glycosylated a1c Nini Wolf [...] Start: 02-17-2019 Assay of ferritin Nini Lurdes zamora Start: 02-17-2019 Assay of folic acid serum [...] TO F REE T4 IF ABNORMAL Nini Rickkins Start: 02-17-2019 Valproate [Mass/volu me] in Serum or Plasma Nini Rickkins Start: 12-20-2018 Ecg routine ecg w/le ast [...] routine ecg w/le ast 12 lds w/i&r [facility] Start: 06-21-2018 Assay of ethanol [facility] Start: 06-21-2018 Assay of troponin quantitative [facility] Start: 06-21-2018 Blood count complete auto&auto difrntl wbc [facility] Start: 06-21-2018 Comprehensive metabo lic panel [facility] Start: 06-21-2018 Assay of lactate [facility] Start: 06-21-2018 Radiologic exam ches t single view [facility] Start: 06-21-2018 Drug screen class list a [facility] Start: 06-21-2018 Urnls dip stick/tabl et rgnt auto w/o microscopy [facility] Start: 02-11-2017 Loop electrosurgical excision procedure of cervix Nini Wlof Work Phone: Diabetes mellitus screening Imad Asaad Other Hyperlipidemia screening Dona d Asaad Other LOOP electro excisio n of cervix Nini Wolf Comment on above: Completed: 2017 None (qualifier value) Amanda BARRIOS Plan of Treatment Date Care Activity Detail Author Start: 01-04-2057 Pneumococcal 0-64 ye ars Vaccine (2 of 2 - PPSV23) Pneumococcal 0-64 years Vaccine (2 of 2 - PPSV23) [facility] Start: 01-04-2042 Zoster Vaccines (1 o f 2) Zoster Vaccines (1 of 2) [facility] Start: 04-10-2031 DTaP/Tdap/Td vaccine (3 - Td or Tdap) DTaP/Tdap/Td vaccine (3 - Td or Tdap) [facility] Start: 04-10-2031 DTaP/Tdap/Td vaccine (5 - Td or Tdap) DTaP/Tdap/Td vaccine (5 - Td or Tdap) [facility] Start: 04-10-2031 DTaP/Tdap/Td Vaccine s (4 - Td or Tdap) DTaP/Tdap/Td Vaccines (4 - Td or Tdap) [facility] Start: 03-27-2024 Lipid panel Lipid Panel [facility] Start: 08-10-2023 [facility] Start: 08-06-2023 Hospital admission [facility] Start: 03-17-2023 Bacteria identified in Urine by Culture [facility] Start: 03-12-2023 [facility] Start: 01-25-2023 Bacteria identified in Urine by Culture Urine Culture [facility] Start: 10-12-2022 Influenza vaccination Influenza Vacc ine (#1) [facility] Start: 10-11-2022 [facility] Start: 06-10-2022 [facility] Start: 06-07-2022 Referral to Merchandise Marker [facility] Start: 06-07-2022 Sleep disorder assessment [facility] Start: 06-07-2022 Hospital admission [facility] Start: 04-03-2022 [facility] Start: 04-03-2022 Bacteria identified in Blood by Culture [facility] Start: 04-03-2022 Blood culture for bacteria, including anaerobic screen Blood Culture [facility] Start: 04-03-2022 [facility] Start: 01-04-2022 Screening for malign ant neoplasm of cervix [facility] Start: 10-12-2021 Influenza vaccination Flu vacc ine (Season Ended) [facility] Start: 09-11-2021 Influenza vaccination Flu vaccine (# 1) [facility] Start: 12-14-2020 COVID-19 Vaccine (3 - Booster for Pfizer series) COVID-19 Vaccine (3 - Booster for Pfizer series) [facility] Start: 10-12-2020 Influenza vaccination Flu vaccine (# 1) [facility] Start: 10-11-2020 FUV, Provider: Nini Wolf, Status: Pen, Time: 10:00 AM FUV, Provider: Nini Wolf, Status: Pen, Time: 10:00 AM -Gastroenterology [facility] [id number] [facility] Work Phone: Start: 10-11-2020 Patient encounter procedure [facility] [place] Start: 09-08-2020 COVID-19 Vaccine (3 - Booster for Pfizer series) COVID-19 Vaccine (3 - Booster for Pfizer series) [facility] Start: 09-08-2020 COVID-19 Vaccine (3 - Pfizer series) COVID-19 Vaccine (3 - Pfizer series) [facility] Start: 10-13-2019 Influenza vaccination Flu vaccine (# 1) [place], [place] Start: 12-22-2018 End: 12-22-2018 Virtual Health 12/22/2018 [facility] Psychiatry Parag Le, HOUSING MANAGEMENT REPRESENTATIVE - SERVICE SUPERVISOR [address] [place] [address] [phone] [facility] Start: 11-24-2018 End: 11-24-2018 Office Visit [facility] Start: 10-12-2018 Influenza vaccination Flu vaccine (# 1) [place], [place] Start: 12-14-2017 Pneumococcal 0-64 ye ars Vaccine (2 - PCV) Pneumococcal 0-64 years Vaccine (2 - PCV) [facility] Start: 01-04-2013 Cervical cancer screen Cervical canc er screen [place], [place] Start: 01-04-2013 Screening for malign ant neoplasm of cervix [facility] Start: 01-04-2011 DTaP/Tdap/Td vaccine (2 - Tdap) DTaP/Tdap/Td vaccine (2 - Tdap) [place] Start: 01-04-2011 Hepatitis A Vaccines (1 of 2 - Risk 2-dose series) Hepatitis A Vaccines (1 of 2 - Risk 2-dose series) [facility] Start: 01-04-2010 Hepatitis C screening Hepatitis C sc reen [facility] Start: 01-04-2007 [facility] [place] [place] Start: 01-04-2007 HIV screening [facility] Start: 01-04-2007 HPV vaccine (1 - Fem faye 3-dose series) HPV vaccine (1 - Female 3-dose series) [place], [place] Start: 01-04-2005 Varicella Vaccine (1 of 2 - 13+ 2-dose series) Varicella Vaccine (1 of 2 - 13+ 2-dose series) [place], [place] Start: 2004 Depression Monitoring [facility] Start: 01-04-2003 DTaP/Tdap/Td vaccine (2 - Tdap) DTaP/Tdap/Td vaccine (2 - Tdap) [place] Start: 01-04-2003 HPV vaccine (1 - Fem faye 2-dose series) HPV vaccine (1 - Female 2-dose series) [place], [place] Start: 10-13-1997 Varicella vaccination Varicell a Vaccines (1 of 2 - 2-dose childhood series) [facility] Start: 01-04-1993 Varicella vaccine (1 of 2 - 2-dose childhood series) Varicella vaccine (1 of 2 - 2-dose childhood series) [facility] Start: 1992 Hepatitis B Vaccines (1 of 3 - 3-dose series) Hepatitis B Vaccines (1 of 3 - 3-dose series) [facility] Start: 1992 [facility]atitis C [facility] Start: 1992 Yearly Adult Physical Yearly Adult P hysical [facility] Albumin/Globulin ratio [facility] Anion gap measurement [facility] Bacteria identified in Urine by Culture [facility] Basophils [#/volume] in Blood by Automated count [facility] Basophils/100 leukocytes in Blood by Automated count [facility] EKG 12 Lead EKG 12 Lead ECG STAT 12/20/2018 9:33 PM EST [place], [place] EKG 12 Lead EKG 12 Lead ECG Routine 05/03/2021 9:49 AM EDT [facility] Work Phone: End: 12-14-2022 Electrocardiogram, 12-lead [facility] Service Area Work Phone: Comment on above: As needed until disc ontinued starting 12/14/2022 Once for 1 Occurrenc es starting 12/14/2022 until 12/14/2022 Eosinophils/100 leukocytes in Blood by Automated count [facility] Erythrocyte distribution width [Ratio] by Automated count [facility] Erythrocyte sedimentation rate by Photometric method [facility] Erythrocytes [#/volu me] in Blood [facility] Ethanol [Mass/volume ] in Serum or Plasma [facility] Globulin [Mass/volum e] in Serum [facility] Hematocrit [Volume Fraction] of Blood [facility] Hemoglobin [Mass/volume] in Blood [facility] Hepatitis A virus Ab [Presence] in Serum by Immunoassay [facility] Hepatitis B core antibody measurement [facility] Hepatitis B virus DN A [#/volume] (viral load) in Serum or Plasma by MOISES with probe detection [facility] Hepatitis B virus DN A [log units/volume] (viral load) in Serum or Plasma by MOISES with probe detection [facility] Hepatitis B virus DN A [Units/volume] (viral load) in Serum or Plasma by MOISES with probe detection [facility] Hepatitis B virus surface Ab [Presence] in Serum [facility] Hepatitis B virus surface Ag [Presence] in Serum or Plasma by Immunoassay [facility] Hepatitis C virus RN A [log units/volume] (viral load) in Serum or Plasma by MOISES with probe detection [facility] HIV 1+2 Ab+HIV1 p24 Ag [Presence] in Serum or Plasma by Immunoassay [facility] Leukocytes [#/volume ] corrected for nucleated erythrocytes in Blood by Automated coun [facility] Leukocytes [#/volume ] in Blood [facility] Lymphocytes [#/volum e] in Blood by Automated count [facility] Lymphocytes/100 leukocytes in Blood by Automated count [facility] MCH [Entitic mass] b y Automated count [facility] MCHC [Mass/volume] b y Automated count [facility] MCV [Entitic volume] by Automated count [facility] Measurement of Hepatitis delta virus antibody [facility] Monocytes [#/volume] in Blood by Automated count [facility] Monocytes/100 leukocytes in Blood by Automated count [facility] Neutrophils [#/volum e] in Blood by Automated count [facility] Neutrophils/100 leukocytes in Blood by Automated count [facility] Nucleated erythrocyt es [Presence] in Blood by Automated count [facility] Patient Education [facility] Work Phone: Patient referral [facility] Work Phone: Platelet mean volume [Entitic volume] in Blood by Automated count [facility] Platelets [#/volume] in Blood [facility] End: 11-01-2018 VL DUP UPPER EXTREMITY VENOUS LEFT VL DUP UPPER EXTREMITY VENOUS LEFT Imaging Routine Once for 1 Occurrences starting 11/01/2018 until 11/01/2018 [facility] [place] Comment on above: Once for 1 Occurrenc es starting 11/01/2018 until 11/01/2018 [facility] NEGATED: Highlighted row has been ruled out! Planned Goals not documented [facility] Work Phone: Immunizations Immunization Date Immunization Notes Care Provider Bianka villarreal 04-01-2022 tetanus toxoid, redu perry diphtheria toxoid, and acellular pertussis vaccine, adsorbed HOUSING MANAGEMENT REPRESENTATIVE Amanda Robreynaldo Work Phone: [facility] 04-10-2021 tetanus toxoid, redu perry diphtheria toxoid, and acellular pertussis vaccine, adsorbed HOUSING MANAGEMENT REPRESENTATIVE Amanda Robuck Work Phone: [facility] 07-14-2020 COVID-19 mRNA, Comirnaty (Pfizer) HOUSING MANAGEMENT REPRESENTATIVE Amanda Barrios Work Phone: [facility] 06-23-2020 COVID-19 mRNA, Comirnaty (Pfizer) HOUSING MANAGEMENT REPRESENTATIVE Amanda Robuck Work Phone: [facility] 11-19-2017 influenza, seasonal, injectable; Translations: [Fluzone Quadravalent] Amanda BARRIOS [facility] Comment on above: Reason for Medicatio n: Other (see comment) 11-19-2017 influenza virus vaccine, unspecified formulation Amy Steele MD Work Phone: [facility] Work Phone: 12-14-2016 pneumococcal polysaccharide vaccine, 23 valent [facility] 05-01-2016 tetanus toxoid, redu perry diphtheria toxoid, and acellular pertussis vaccine, adsorbed Amanda ROBUCK [facility] 04-23-2012 influenza, seasonal, injectable Amanda ROBUCK [facility] 04-23-2012 tetanus toxoid, redu perry diphtheria toxoid, and acellular pertussis vaccine, adsorbed Amanda ROBUCK [facility] Comment on above: Reason for Medicatio n: Other (see comment) 09-15-1997 DTaP, unspecified formulation Amanda ROBUCK [facility] 09-15-1997 measles, mumps and rubella virus vaccine Amanda ROBUCK [facility] NEGATED: Highlighted row has not occurred!11-30-2022 influenza virus vaccine, unspecified formulation CARRIE PEREZ [facility] NEGATED: Highlighted row has not occurred!11-30-2022 SARS-CoV-2 mRNA (tozinameran 5y-11y) vaccine CARRIE PEREZ [facility] NEGATED: Highlighted row has not occurred!03-28-2022 influenza virus vaccine, unspecified formulation Amanda ROBUCK [facility] Payers Date Payer Category Payer Unknown [id number] 2022 Self-pay [id number] 2018 Medicaid [id number] 2018 Unknown 2016 Unknown [facility] x[facility]xx 2016-Present [phone] CLAIMS DEPARTMENT [address] [place] [address] xxxxxxxxxxx [id number]. [id number] 1992 Unknown [id number] 2.16.840.1.297075.3.579.2.182 1992 Unknown [id number] 2.16.840.1.089212.3.579.2.185 1992 Unknown [id number] 2.16.840.1.488062.3.579.2.174 1992 Unknown [id number] 2.16.840.1.398240.3.579.2.174 1992 Unknown [id number] 2.16.840.1.894320.3.579.2.196 1992 Unknown [id number] 2.16.840.1.609478.3.579.2.177 1992 Unknown [id number] 2.16.840.1.946029.3.579.2.204 1992 Unknown [id number] 2.16.840.1.828492.3.579.2.593 1992 Unknown [id number] 2.16.840.1.268412.3.579.2.593 1992 Unknown [id number] 2.16.840.1.836037.3.579.2.176 1992 Unknown [id number] 2.16.840.1.435619.3.579.2.175 1992 Unknown [id number] 2.16.840.1.347635.3.579.2.175 1992 Unknown [id number] 2.16.840.1.806656.3.579.2.1243 1992 Unknown [id number] 2.16.840.1.924262.3.579.2.727 1992 Unknown [id number] 2.16.840.1.151490.3.579.2.727 1992 Unknown [id number] 2.16.840.1.688367.3.579.2.72 1992 Unknown [id number] 2.16.840.1.934875.3.579.2.72 1992 Unknown [id number] 2.16.840.1.512424.3.579.2.72 1992 Unknown [id number] 2.16.840.1.116831.3.579.2.72 1992 Unknown [id number] 2.16.840.1.841454.3.579.2.72 1992 Unknown [id number] 2.16.840.1.777838.3.579.2.72 1992 Unknown [id number] 2.16.840.1.570011.3.579.2.72 1992 Unknown [id number] 2.16.840.1.548674.3.579.2.72 1992 Unknown [id number] 2.16.840.1.620107.3.579.2.72 1992 Unknown [id number] 2.16.840.1.414141.3.579.2.72 1992 Unknown [id number] 2.16.840.1.684447.3.579.272 1992 Unknown [id number] 2.16.840.1.205060.3.579.2.72 1992 Unknown [id number] 2.16.840.1.269502.3.579.2. 1992 Unknown [id number] 2.16.840.1.661740.3.579.2. 1992 Unknown [id number] 2.16.840.1.363623.3.579.2. 1992 Unknown [id number] 2.16.840.1.565468.3.579.2. 1992 Unknown [id number] 2.16.840.1.900256.3.579.2. 1992 Unknown [id number] 2.16.840.1.590504.3.579.2 1992 Unknown [id number] 2.16.840.1.416592.3.579.2 1992 Unknown [id number] 2.16840.1.120826.3.579.2 1992 Unknown [id number] 2.16.840.1.218844.3.579.2 1992 Unknown [id number] 2.16.840.1.039595.3.579.2 1992 Unknown [id number] 2.16.840.1.180656.3.579.2 1992 Unknown [id number] 2.16.840.1.473685.3.579.2 1992 Unknown [id number] 2.16.840.1.301436.3.579.2. 1992 Unknown [id number] 2.16.840.1.776814.3.579.2 1992 Unknown [id number] 2.16.840.1.507751.3.579.2 1992 Unknown [id number] 2.16.840.1.140076.3.579.2 1992 Unknown [id number] 2.16.840.1.764984.3.579.2.7 1992 Unknown [id number] 2.16.840.1.468820.3.579.2. 1992 Unknown [id number] 2.16.840.1.802610.3.579.2. 1992 Unknown [id number] 2.16.840.1.070948.3.579.2. 1992 Unknown [id number] 2.16.840.1.931662.3.579.2. 1992 Unknown [id number] 2.16.840.1.625002.3.579.2. 1992 Unknown [id number] 2.16.840.1.585427.3.579.2. 1992 Unknown [id number] 2.16.840.1.613695.3.579.2. 1992 Unknown [id number] 2.16.840.1.900014.3.579.2. 1992 Unknown [id number] 2.16.840.1.013867.3.579.2. 1992 Unknown [id number] 2.16.840.1.190152.3.579.2. 1992 Unknown [id number] 2.16.840.1.854632.3.579.2. 1992 Unknown [id number] 2.16.840.1.035847.3.579.2. 1992 Unknown [id number] 2.16.840.1.319385.3.579.2.727 1959 Unknown [id number] Medicare Medicare [id number] Unknown [facility] [id number] Unknown [id number] 2.16.840.1.630167.3.579.2.531 Unknown [id number] 2.16.840.1.556474.3.579.2.531 Unknown [id number] 2.16.840.1.793797.3.579.2.531 Unknown [id number] 2.16.840.1.535062.3.579.2.531 Unknown [id number] 2.16.840.1.383795.3.579.2.531 Unknown [id number] 2.16.840.1.092323.3.579.2.531 Unknown [id number] 2.16.840.1.587571.3.579.2.531 Unknown [id number] 2.16.840.1.482679.3.579.2.531 Unknown [id number] 2.16.840.1.377026.3.579.2.531 Unknown [id number] 2.16.840.1.866893.3.579.2.531 Unknown [id number] 2.16.840.1.656187.3.579.2.531 Unknown [id number] 2.16.840.1.325430.3.579.2.531 Unknown [id number] 2.16.840.1.800035.3.579.2.531 Unknown [id number] 2.16.840.1.243447.3.579.2.531 Social History Date Type Detail Facility Start: 11-01-2018 End: 03-12-2022 Tobacco smoking status NHIS Current every day smoker [place], [place] History of tobacco use Cigarette Smoker [place] Start: 11-01-2018 End: 03-13-2022 Cigarettes smoked current (pack per day) - Reported [place], [place] Comment on above: 4 [employer]; Start: 02-12-2000 Alcohol intake No [place], [place] Start: 1990 Sex Assigned At Female M [place], [place] Start: 03-10-2020 End: 03-12-2022 Tobacco use and exposure Never used [facility] Start: 03-10-2020 End: 03-13-2022 Alcohol intake Current drinker of alcohol (finding) [facility] Start: 04-23-2021 End: 12-14-2022 Exposure to SARS-CoV-2 (event) Not sure [facility] Start: 12-20-2018 Alcohol Comment 8-12 beers karan ly plus liquor at times [facility] consumption [facility] Start: 03-14-2021 End: 05-03-2021 Alcohol intake Ex-drinker (finding) [employer] Work Phone: Start: 05-03-2021 History SDOH Alcohol Comment currently at [facility] for alcohol. last drink was 12 days ago [employer] Phone: Start: 07-04-2021 End: 07-14-2023 Tobacco smoking status Heavy tobacco smoker (finding) [facility] Tobacco smoking status Never [facility] Start: 02-19-2022 End: 01-08-2023 Tobacco smoking status NHIS Never smoked tobacco (finding) [facility] Start: 03-09-2022 End: 08-07-2023 Tobacco smoking status NHIS Smoker (finding) [facility] Start: 03-12-2022 Alcohol Comment drank 02/15 toda y 03/12/2022---currently at [facility] for alcohol. last drink was 12 days ago [employer] Work Phone: Start: 03-13-2022 History SDOH Alcohol Frequency 5 [employer] Work Phone: Start: 1990 Sex Assigned At Not on file [facility] Work Phone: NEGATED: Highlighted row - - -[facility] Work Phone: NEGATED: Highlighted row [facility] Goals Date Patient Goal Desired Activity /State Functional Status Date Assessment Result Facility 08-10-2023 Functional status Patient at Baseline [facility] Work Phone: 08-06-2023 Functional Status N/A [facility] 07-14-2023 Functional Status N/A [facility] 07-05-2023 Functional Status N/A [facility] 07-03-2023 Functional Status N/A [facility] 06-30-2023 Functional Status N/A [facility] 06-17-2023 Functional Status N/A [facility] 06-03-2023 Functional Status N/A [facility] 04-19-2023 Functional Status N/A [facility] 2023 Functional Status N/A [facility] 2023 Functional Status [facility] 01-02-2023 Functional Status N/A [facility] 12-10-2022 Functional Status N/A [facility] 12-10-2022 Functional Status N/A [facility] 11-30-2022 Functional Status N/A [facility] 11-04-2022 Functional Status N/A [facility] 08-17-2022 Functional Status No [facility] 08-16-2022 Functional Status N/A [facility] 08-13-2022 Functional Status N/A [facility] 06-10-2022 Functional status Patient at Baseline [facility] Work Phone: 07-26-2021 Functional Status N/A [facility] NEGATED: Highlighted row Functional performance Functional status health issues are not documented Disease [facility] Work Phone: Mental Status Date Assessment Result Facility 08-10-2023 Cognitive function Cognitive Sta tus Patient at Baseline [facility] Work Phone: 06-10-2022 Cognitive function Cognitive Sta tus Patient at Baseline [facility] Work Phone: NEGATED: Highlighted row Cognitive function [Interpretation] Cognitive status health issues are not documented Disease [facility] Work Phone: Clinical Notes 02-05-2021 to 08-10-2023 Note Date & Type Note Facility 08-10-2023 Discharge summary Note Date/Time August 10, 2023 11:00am [facility] [address] [place] [address] Discharge Summary Signed Patient: Lyle Bailey MR#: [id number] : 1990 Acct:[id number] Age/Sex: 33 / F Adm Date: 4 Loc: Room: [address] [place] [address]: Piyush Pace MD Copies to: MD Amanda Resendez APRN, 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~ Providers Date of Discharge: 08/10/23 Discharging Provider: Piyush Pace Primary Care Provider: Amanda Barrios Discharge Diagnosis (1) Acute psychosis: Final Diagnosis Final Discharge Diagnosis: Unspecified psychosis Stimulant use disorder Summary Hospital Course Hospital course: Ms. Bailey is a 33 year old female with a reported history of alcohol abuse, anxiety, depression, and accidental heroin overdose who presents for inpatient treatment due to concern for acute psychosis. At the time of the interview, patient presented as tired and confused. Patient had a hard time getting words out and became frustrated. Patient is oriented to place and person but not dateor time. Patient reports auditory and visual hallucinations that started 2 daysago. During the interview she would say, are you talking to me, I thought youare talking to someone else. Patient reports of being itchy all over her body and is seen to be scratching her whole body. She denies any recent methadone use and reports that she took all her medications yesterday. She reports that her appetite has decreased she feels drowsy. Patient endorses that she does nothave any suicidal ideation and reports her depression is a 7 out of 10 with 10 being the worst. At the time of admission, patient was unable to answer all thequestions. Mother reports that the patient was talking to random people and hereyes were rolling to the back of her head. Patient also reported of a seizure-like activity that occurred yesterday. Mom reports that patient is on several psychiatric medications, but missed taking them for a couple days. Her last admission was at [facility] on July 05, 2023 for psychosis. Mom also reports that the patient has been off of methadone for a year. Past psych history: Alcohol abuse, accidental heroin overdose, anxiety, depression Past hospitalizations: Reported past psychiatric hospitalizations Past suicide attempts: Reported overdose in the past Family psych history: Reported psych history in her family Previous medications: Latuda, Lexapro, Neurontin, BuSpar, clonidine Alcohol and drug use: Reports daily alcohol use-drinks 6 twisted teas daily. Denies drug use Living: Lives with mom Employment: Unemployed Patient did not want to take Invega Sustenna and Geodon was started. She tolerated the medication and had gradual improvement of her psychotic symptoms. She started to talk in a more organized and linear manner. She did not exhibit any behavior concerning for suicidality during her hospital course. She did nothave any conflict with peers or staff. As her symptoms improved she was moved to the front unit and socialize with peers and attended groups. She became lessconfused and was not as easily frustrated. She started to exhibit some goal oriented thinking and was linear and organized. On the day of discharge, she reported that she was feeling better. She denied any depression or suicidality. She denied any psychotic symptoms. She stated that she would follow-up with outpatient services and continue her medications. The importance of monitoring her substance use intake was communicated with her. Time spent discussing smoking cessation with patient: 3 to 10 minutes Condition Condition at Discharge: Stable Status at Discharge Cognitive/behavioral status at discharge: Mental Status Exam: Appearance: grossly normal Mental Status: mental status grossly normal Mood: Euthymic mood Affect: Normal affect Speech and Movement: speech normal, movement normal Attitude: cooperative Thought Process: normal Thought Content: Denied hallucinations, no homicidality and no suicidality Insight: Good Judgment: Good Functional status at discharge: independent ambulation Overall status at discharge: patient is back to baseline Time Spent with Patient Time spent providing/coordinating discharge services (# min): 30 Discharge Plan Discharge Plan Patient Disposition: Home Activity: No Activity Restriction Diet: Regular Additional Instructions: Important Contact Information You can call [facility] Inpatient Behavioral Health at [phone] any time day or night if you have emergent questions or question regarding discharge instructions. If at any time you are feeling an increase inyour psychiatric symptoms, call your physician or behavioral healthcare provider. If any time you have thoughts of harming yourself or others contact one of the following: Call 88 (available 03/09) Crisis Text Line (available 03/09) text 4HOPE to [phone] [facility] Hope Line (available 8 a.m. Midnight) call [phone] ([phone]) Regular diet No Activity Restrictions Instructions: Bipolar Disorder (DC), [facility] Behavioral Health DC Instructions, Know your Meds Stand Alone Forms: Work/School Release Form Prescriptions: New ziprasidone HCl 20 mg Capsule 20 mg PO DAILY.WITH.SUPPER 30 Days Qty: 30 0RF nicotine 21 mg/24 hr Patch 24 Hour 21 mg transdermal DAILY Qty: 20 0RF chlordiazepoxide HCl 10 mg Capsule 10 mg PO DAILY 2 Days Qty: 2 0RF Continued clonidine HCl 0.1 mg tablet 0.1 mg PO BID gabapentin 800 mg tablet 800 mg PO TID buspirone 5 mg tablet 5 mg PO BID loratadine [Allergy Relief (loratadine)] 10 mg tablet 10 mg PO DAILY methylprednisolone 4 mg tablets,dose pack 4 mg PO .COMPLEX Rx Instructions: as directed propranolol 10 mg tablet 10 mg PO DAILY Follow Up: [facility] ([place]) [Outside] (Jada Colby NP, Call this office on Saturday08/12/2023 for a follow up appointment. ) Amanda Barrios APRN, SERVICE SUPERVISOR-C [Primary Care Provider] - (Please contact for any medical needs or concerns) Exam Physical Exam Vital Signs: Temp Pulse Resp BP Pulse Ox O2 Del Method 97.3 F L 68 18 125/92 97 Room Air 08/10/23 07:29 08/10/23 07:29 08/10/23 07:29 08/10/23 07:29 08/10/23 07:29 08/10/23 07:29 Documented By: Piyush Pace MD 08/10/23 1056 Signed By: <Electronically signed by Piyush Pace MD> 08/10/23 1118 [facility] Work Phone: 1(779) 826-618406-28-2024 Progress note Author Piyush Pace [facility] August 09, 2023 11:39am Note Date/Time August 09, 2023 11:3 9am [facility] [address] [place] [address] Psychiatry Progress Note Signed Patient: Lyle Bailey MR#: [id number] : 1990 Acct:[id number] Age/Sex: 33 / F Adm Date: 4 Loc: Room: [address] [place] [address] Type : ADM IN Attending Dr: Piyush Pace MD Copies to: ~ Date of Service: 08/09/2023 Subjective Subjective Narrative: Lyle reported that she thinks that she may be having some alcohol withdrawal symptoms. She stated that she feels lightheaded and shaky. She is concerned about going home while the symptoms are still present as she does not have any medication to manage this at home. She is open to trying Librium to see if it would help. Mental Status Exam: Appearance: grossly normal Mental Status: mental status grossly normal Mood: dysthymic mood Affect: Improving affect Speech and Movement: speech and movement clear and intact Thought Process: normal Thought Content: Reports no hallucinations and denies paranoid thoughts, no homicidally, denies suicidality Insight: Improving judgment: Improving Exam Physical Exam Vital Signs: Temp Pulse Resp BP Pulse Ox O2 Del Method 97.3 F L 71 18 129/86 96 Room Air 08/09/23 07:30 08/09/23 07:30 08/09/23 07:30 08/09/23 07:30 08/09/23 07:30 08/08/23 20:36 Abnormal Involuntary Movement Dental Status Are dentures usually worn?: No Assessment/Plan Assessment/Plan (1) Acute psychosis: Plan Patient reported that symptoms are improving. She does report some alcohol withdrawal symptoms Continue BuSpar 5 mg p.o. twice daily, clonidine 0.1 mg p.o. twice daily Continue Geodon 20 mg with dinner Will start Librium 10 mg twice a day to help manage alcohol withdrawal issues with plan on tapering. Anticipate discharge over the weekend No abnormal movements noted on exam. AIMS is Zero. Involve friends/family members if applicable to coordinate care and ensure appropriate outpatient appointments are scheduled prior to discharge. I have reviewed evaluations by other providers (ER notes, nurses and staff) Documented By: Piyush Pace MD 08/09/23 1138 Signed By: <Electronically signed by Piyush Pace MD> 08/09/23 1139 [facility] Work Phone: 1(704) 320-337906-27-2024 Progress note Author Piyush Pace [facility] [place] August 08, 2023 12:29pm Note Date/Time August 08, 2023 10:2 6am [facility] [address] [place] [address] Psychiatry Progress Note Signed Patient: Lyle Bailey MR#: [id number] : 1990 Acct:[id number] Age/Sex: 33 / F Adm Date: 4 Loc: Room: [address] [place] [address] Type : ADM IN Attending Dr: Piyush Pace MD Copies to: ~ Date of Service: 08/08/2023 Subjective Subjective Narrative: Lyle reports that she feels much better and reports that she just feels tired. She denies any hallucinations, thought process and speech has improved. Patient was oriented to person, place, time. Patient reports no suicidal ideation. Patient endorses good sleep and appetite. Patient reports that she may be allergic to risperidone and reports side effects such as galactorrhea, increase hallucinations, face swelling. Mental Status Exam: Appearance: grossly normal Mental Status: mental status grossly normal Mood: dysthymic mood Affect: dysphoric affect Speech and Movement: speech and movement clear and intact Thought Process: normal Thought Content: Reports improving hallucinations and denies paranoid thoughts, no homicidally, denies suicidality Insight: Improving judgment: Improving Patient was personally seen by me on the day of the encounter. I reviewed the history and performed the parra elements of the physical examination. I formulated the plan of care and confirmed this with the medical student as notedbelow. Exam Physical Exam Vital Signs: Temp Pulse Resp BP Pulse Ox O2 Del Method 97.5 F L 73 18 131/87 98 Room Air 08/08/23 07:23 08/08/23 07:23 08/08/23 07:23 08/08/23 07:23 08/08/23 07:23 08/08/23 07:57 Abnormal Involuntary Movement Dental Status Are dentures usually worn?: No Assessment/Plan Assessment/Plan (1) Acute psychosis: Plan Improving psychosis Continue BuSpar 5 mg p.o. twice daily, clonidine 0.1 mg p.o. twice daily Continue Geodon 20 mg with dinner No abnormal movements noted on exam. AIMS is Zero. Involve friends/family members if applicable to coordinate care and ensure appropriate outpatient appointments are scheduled prior to discharge. I have reviewed evaluations by other providers (ER notes, nurses and staff) Documented By: Piyush Pace MD 08/08/23 1020 Signed By: <Electronically signed by Piyush Pace MD> 08/08/23 5257 [facility] Work Phone: 1(639) 327-487806-26-2024 History and physical note Author Piyush Pace [facility] [place] August 07, 2023 12:27pm Note Date/Time August 07, 2023 10:4 1am [facility] [address] [place] [address] Psychiatry H&P Signed Patient: Lyle Bailey MR#: [id number] : 1990 Acct:[id number] Age/Sex: 33 / F Adm Date: 4 Loc: Room: [address] [place] [address] Type: ADM IN Attending Dr: Piyush Pace MD Copies to: MD Amanda Resendez APRN, CNP~ Date of Service: 08/07/2023 HPI Narrative Narrative: Ms. Bailey is a 33 year old female with a reported history of alcohol abuse, anxiety, depression, and accidental heroin overdose who presents for inpatient treatment due to concern for acute psychosis. At the time of the interview, patient presented as tired and confused. Patient had a hard time getting words out and became frustrated. Patient is oriented to place and person but not dateor time. Patient reports auditory and visual hallucinations that started 2 daysago. During the interview she would say, are you talking to me, I thought youare talking to someone else. Patient reports of being itchy all over her body and is seen to be scratching her whole body. She denies any recent methadone use and reports that she took all her medications yesterday. She reports that her appetite has decreased she feels drowsy. Patient endorses that she does nothave any suicidal ideation and reports her depression is a 7 out of 10 with 10 being the worst. At the time of admission, patient was unable to answer all thequestions. Mother reports that the patient was talking to random people and hereyes were rolling to the back of her head. Patient also reported of a seizure-like activity that occurred yesterday. Mom reports that patient is on several psychiatric medications, but missed taking them for a couple days. Her last admission was at [facility] on July 05, 2023 for psychosis. Mom also reports that the patient has been off of methadone for a year. Past psych history: Alcohol abuse, accidental heroin overdose, anxiety, depression Past hospitalizations: Reported past psychiatric hospitalizations Past suicide attempts: Reported overdose in the past Family psych history: Reported psych history in her family Previous medications: Latuda, Lexapro, neurotonin, BuSpar, clonidine Alcohol and drug use: Reports daily alcohol use-drinks 6 twisted teas daily. Denies drug use Living: Lives with mom Employment: Unemployed Review of symptoms: Constitutional: Denies chills and Denies fever(s) Eyes: Reports change in vision ENT: Reports abnormal hearing Cardiovascular: Denies chest pain Respiratory: Denies chest congestion and Denies cough Gastrointestinal: Denies change in bowel habits Genitourinary: Denies dysuria Musculoskeletal: Denies headache Integumentary/Breasts: Denies dry skin, reports itchy skin Neurologic: Denies abnormal gait and Denies abnormal movements Psychiatric: Reports depression and denies suicidal ideation Physical exam: Const: cooperative Nutritional Appearance: average body habitus Orientation: alert, awake and oriented x3 HEENT: Head normal to inspection, hearing grossly normal bilaterally, external nose normal, face symmetric Eyes: appearance normal, both eyes and all related structures, sclerae normal Neck: normal visual inspection and full ROM Resp: normal respiratory effort, able to speak in complete sentences and symmetric chest movement Cardio: regular rate GI: normal to inspection and non-distended : deferred Skin: no rashes or lesions noted Neuro: Normal olfaction CNI: normal olfaction CNII: Visual tejeda intact, CNIII,IV,: EOM intact, no nystagmus. Pupils equal, round, reactive to light and accommodation, CNV: Sensation intact to light touch, CNVII: Raises eyebrows,smile/frown, puff out cheeks symmetrically, CNVIII: Hearing intact bilaterally, CNIX,X: Voice normal, soft palate elevation normal, symmetrical, CNXI: Shoulder shrug strong, equal bilaterally, CNXII: Tongue protrusion midline, movement symmetrical. Extrem: normal to inspection and full ROM Mental Status Exam: Appearance: grossly normal Mental Status: mental status grossly normal Mood: dysthymic mood Affect: dysphoric affect Speech and Movement: speech and movement limited. Patient mumbles Thought Process: normal Thought Content: Reports hallucinations and denies paranoid thoughts, no homicidally, denies suicidality Insight: Poor judgment: Poor Patient was personally seen by me on the day of the encounter. I reviewed the history and performed the parra elements of the physical examination. I formulated the plan of care and confirmed this with the medical student as notedbelmichael. Patient reported that she may have taken some Adderall with her alcohol. She stated that she is not too sure what else happened. She reported that she does not want to take Invega Sustenna anymore because it causes some weight gain. She is open to trying Geodon. History of Present Illness History of present illness: [facility] Medical History Accidental heroin overdose Anxiety Blood plasma poisoning Depression ETOH abuse HTN (hypertension) Restless legs syndrome (RLS) Tobacco abuse Surgical History H/O LEEP Hx of appendectomy Family History Mother Depression Family/Other Depression Father Depression Social History Smoking Status: Current every day smoker Tobacco Type: cigarettes Substance Use Type: Alcohol and Amphetamines Social History Comments: Lives with boyfriend Meds Medications and Allergies Allergies codeine Allergy (Unknown, Verified 04/25/23 17:41) Hives, rash hydroxyzine [From Vistaril] Adverse Reaction (Verified 04/25/23 17:41) Anxiety quetiapine [From Seroquel] Adverse Reaction (Verified 04/25/23 17:41) Swelling Home Medications clonidine HCl 0.1 mg tablet 0.1 mg PO BID 04/25/23 [History Confirmed 08/06/23] gabapentin 800 mg tablet 800 mg PO TID 04/25/23 [History Confirmed 08/06/23] buspirone 5 mg tablet 5 mg PO BID 08/06/23 [History Confirmed 08/06/23] loratadine 10 mg tablet (Allergy Relief (loratadine)) 10 mg PO DAILY 08/06/23 [History Confirmed 08/06/23] methylprednisolone 4 mg tablets in a dose pack 4 mg PO .COMPLEX 08/06/23 [History Confirmed 08/06/23] propranolol 10 mg tablet 10 mg PO DAILY 08/06/23 [History Confirmed 08/06/23] Exam Physical Exam Vital Signs: Temp Pulse Resp BP Pulse Ox O2 Del Method 98.2 F 79 18 111/77 97 Room Air 08/07/23 07:30 08/07/23 07:30 08/07/23 07:30 08/07/23 07:30 08/07/23 07:30 08/07/23 07:30 Abnormal Involuntary Movement Dental Status Are dentures usually worn?: No Assessment/Plan (1) Acute psychosis: Plan Admit to for management of acute psychosis Continue BuSpar 5 mg p.o. twice daily, clonidine 0.1 mg p.o. twice daily Will add Geodon 20 mg with dinner No abnormal movements noted on exam. AIMS is Zero. Involve friends/family members if applicable to coordinate care and ensure appropriate outpatient appointments are scheduled prior to discharge. I have reviewed evaluations by other providers (ER notes, nurses and staff) Documented By: Piyush Pace MD 08/07/2387 Signed By: <Electronically signed by Piyush Pace MD> 08/07/23 1227 [facility] Work Phone: 1(269) 919-129606-25-2024 NotePatient was signed out to me by the outgoing provider. At the time of signout she is medically cleared and awaiting evaluation by P. P called and evaluated the patient and reports to us that earlier today she did tell someone thatshe was, she was self in the head and for this reason they want her admitted to [facility] psychiatric unit for further evaluation. Patient was transferred in stable condition.[facility] Center[facility]:Result Comment: Electronically Signed By: Darren Guzman DO\.br\Date and Time Signed: 08/06/23 20:28 [id number] Evaluation + Plan note Diagnostic Tests Pending * Urine Culture 07/14/23 * Chlam/GC/Trich,MOISES 07/14/23 [facility]06-02-2024 Hospital Discharge instructions Patient Education 07/14/2023 11:56:22 Steps to Quit Smoking Steps to Quit Smoking Smoking tobacco is the leading cause of preventable . It can affect almost every organ in the body. Smoking puts you and those around you at risk for developing many serious chronic diseases. Quitting smoking can be very challenging. Do not get discouraged if you are not successful the first time. Some people need to make many attempts to quit before they achieve long-term success. Do your best to stick to your quit plan, and talk with your health care provider if you have any questionsor concerns. How do I get ready to quit? When you decide to quit smoking, create a plan to help you succeed. Before you quit: Pick a date to quit. Set a date within the next 2 weeks to give you time to prepare. Write down the reasons why you are quitting. Keep this list in places where you will see it often. Tell your family, friends, and co-workers that you are quitting. Support from people you are close to can make quitting easier. Talk with your health care provider about your options for quitting smoking. Find out what treatment options are covered by your health insurance. Identify people, places, things, and activities that make you want to smoke (triggers). Avoid them. What first steps can I take to quit smoking? Throw away all cigarettes at home, at work, and in your car. Throw away smoking accessories, such as ashtrays and lighters. Clean your car. Make sure to empty the ashtray. Clean your home, including curtains and carpets. What strategies can I use to quit smoking? Talk with your health care provider about combining strategies, such as taking medicines while you are also receiving in-person counseling. Using these two strategies together makes you more likely to succeed in quitting than if you used either strategy on its own. If you are or , talk with your health care provider about finding counseling or other support strategies to quit smoking. Do not take medicine to help you quit smoking unless your health care provider tells you to. Quit right away Quit smoking completely, instead of gradually reducing how much you smoke over a period of time. Stopping smoking right away may be more successful than gradually quitting. Attend in-person counseling to help you build problem-solving skills. You are more likely to succeed in quitting if you attend counseling sessions regularly. Even short sessions of 10 minutes can be effective. Take medicine You may take medicines to help you quit smoking. Some medicines require a prescription. You can also purchase [id number] medicines. Medicines may have nicotine in them to replace the nicotine in cigarettes. Medicines may: Help to stop cravings. Help to relieve withdrawal symptoms. Your health care provider may recommend: Nicotine patches, gum, or lozenges. Nicotine inhalers or sprays. Non-nicotine medicine that you take by mouth. Find resources Find resources and support systems that can help you quit smoking and remain smoke-free after you quit. These resources are most helpful when you use them often. They include: Online chats with a counselor. Telephone quitlines. Printed self-help materials. Support groups or group counseling. Text messaging programs. Mobile phone apps or applications. Use apps that can help you stick to your quit plan by providing reminders, tips, and encouragement. Examples of free services include Quit Guide from the CDC and smokefree.gov What can I do to make it easier to quit? Reach out to your family and friends for support and encouragement. Call telephone quitlines, such as 2-011-UHEP-NOW, reach out to support groups, or work with a counselor for support. Ask people who smoke to avoid smoking around you. Avoid places that trigger you to smoke, such as bars, parties, or smoke-break areas at work. Spend time with people who do not smoke. Lessen the stress in your life. Stress can be a smoking trigger for some people. To lessen stress, try: ?Exercising regularly. ?Doing deep-breathing exercises. ?Doing yoga. ?Meditating. What benefits will I see if I quit smoking? Over time, you should start to see positive results, such as: Improved sense of smell and taste. Decreased coughing and sore throat. Slower heart rate. Lower blood pressure. Clearer and healthier skin. The ability to breathe more easily. Fewer sick days. Summary Quitting smoking can be very challenging. Do not get discouraged if you are not successful the first time. Some people need to make many attempts to quit before they achieve long-term success. When you decide to quit smoking, create a plan to help you succeed. Quit smoking right away, not slowly over a period of time. Find resources and support systems that can help you quit smoking and remain smoke-free after you quit. This information is not intended to replace advice given to you by your health care provider. Make sure you discuss any questions you have with your health care provider. Document Revised: 01/19/2022 Document Reviewed: 01/19/2022 [employer] Patient Education 2022 [employer]. 07/14/2023 11:56:21 Health Risks of Smoking Health Risks of Smoking Smoking tobacco is very bad for your health. Tobacco smoke contains many toxic chemicals that can damage every part of your body. Secondhand smoke can be harmful to those around you. Tobacco or nicotine use can cause many long-term (chronic) diseases. Smoking is difficult to quit because a chemical in tobacco, called nicotine, causes addiction or dependence. When you smoke and inhale, nicotine is absorbed quickly into your bloodstream through yourlungs. Both inhaled and non-inhaled nicotine may be addictive. How can quitting affect me? There are health benefits of quitting smoking. Some benefits happen right away and others take time. Benefits may include: Blood flow, blood pressure, heart rate, and lung capacity may begin to improve. However, any lung damage that has already occurred cannot be repaired. Respiratory symptoms from smoking, such as nasal congestion and cough, may improve over time. Your risk of heart disease, stroke, and cancer is reduced. The overall quality of your health may improve. You may save money, as you will not spend money on tobacco products and may spend less money on smoking-related health issues. What can increase my risk? Smoking harms nearly every organ in the body. People who smoke tobacco have a shorter life expectancy and an increased risk of many serious medical problems. These include: More respiratory infections, such as colds and pneumonia. Cancer. Heart disease. Stroke. Chronic respiratory diseases. Delayed wound healing and increased risk of complications during surgery. Problems with reproduction, , and childbirth, such as infertility, early (premature) births, stillbirths, and defects. Secondhand smoke exposure to children increases the risk of: Sudden infant syndrome (SIDS). Infections in the nose, throat, or airways (respiratory infections). Chronic respiratory symptoms. What actions can I take to quit? Smoking is an addiction that affects both your body and your mind, and long-time habits can be hardto change. Your health care provider can recommend: Nicotine replacement products, such as patches, gum, and nasal sprays. Use these products only as directed. Do not replace cigarette smoking with electronic cigarettes, which are commonly called e-cigarettes. The safety of e-cigarettes is not known, and some may contain harmful chemicals. Programs and community resources, which may include group support, education, or talk therapy. Prescription medicines to help reduce cravings. A combination of two or more quit methods, which may increase the success of quitting. Where to find support Follow the recommendations from your health care provider about support groups and other assistance. You can also visit: U.S. Department of Health and Human Services: www.smokefree.gov [place] [employer]: www.freedomfromsmoking.org [place] [employer] Association: www.heart.org Where to find more information Centers for Disease Control and Prevention: www.cdc.gov World Health Organization: www.who.int Summary Smoking tobacco is very bad for your health. Tobacco smoke contains many toxic chemicals that can damage every part of the body. Smoking is difficult to quit because a chemical in tobacco, called nicotine, causes addiction or dependence. There are immediate and long-term health benefits of quitting smoking. A combination of two or more quit methods may increase the success of quitting. This information is not intended to replace advice given to you by your health care provider. Make sure you discuss any questions you have with your health care provider. Document Revised: 01/30/2022 Document Reviewed: 01/30/2022 [employer] Patient Education 2022 [employer] 07/14/2023 11:56:19 BMI for Adults BMI for Adults What [...] numbers. This can be done either in [place] or metric measurements. Note that charts and online BMI calculators are available to help you find your BMI quickly and easily without having to do these calculations yourself. To calculate your BMI in [place] measurements: 1.Measure your weight in pounds [...] Centers for Disease Control and Prevention: www.cdc.gov [place] [employer]: www.heart.org National Heart, Lung, and Blood [place]: www.nhlbi.nih.gov Summary Body mass index (BMI) is a number that is calculated from a person's weight and height. BMI may help estimate how much of a person's weight is composed of fat. BMI can help identify thosewho may be at higher risk for certain medical problems. BMI can be measured using [place] measurements or metric measurements. BMI charts are used to identify whether you are underweight, normal weight, overweight, or obese. This information is not intended to replace advice given to you by your health care provider. Make sure you discuss any questions you have with your health care provider. Document Revised: 10/21/2019 Document Reviewed: 08/28/2019 [employer] Patient Education 2022 [employer]. 07/14/2023 11:56:17 Dysuria Dysuria Dysuria is pain or discomfort [...] Follow these instructions at home: Medicines Take nhcu-exn-arrmjpa and prescription medicines only as told by [...] provider. Document Revised: 09/09/2020 Document Reviewed: 09/09/2020 [employer] Patient Education 2022 [employer]. 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 Patient was evaluated by [facility] excepted to clear [place] by Dr. Burrows. Kerry Linton DO FAAEM [facility]05-22-2024 Evaluation + Plan noteExtracted from: Title:ED Note Author:Kaushik Sparks MD Date: 1. Alcohol withdrawal seizur e (F10.939: Alcohol use, unspecified with withdrawal, unspecified) Unspecified convulsions (R56.9: Unspecified convulsions) Orders: lorazepam, 1 mg = 1 tab(s), Tab, Oral, Once, Stop date 07/03/23 9:43:00 EDT, NOW, Start date 07/03/23 9:43:00 EDT, 07/03/23 9:43:00 EDT Basic Metabolic Panel Capillary Glucose POC CBC w/ Auto Diff Drug Screen Urine ED Cardiac Monitoring eGFR Ethanol Level Extra Blue Tube Extra SST Tube Hepatic Function Panel Magnesium Level Routine Capillary Glucose POC Saline Lock Insert [facility]05-22-2024 Hospital Discharge instructions Patient Education 07/03/2023 10:43:33 Seizure, Adult, [id number] Seizure, Adult A seizure is a sudden burst of abnormal electrical and chemical activity in the brain. Seizures usually last from 30 seconds to 2 minutes. What are the causes? Common causes of this condition include: Fever or infection. Problems that affect the brain. These may include: ?A brain or head injury. ?Bleeding in the brain. ?A brain tumor. Low levels of blood sugar or salt. Kidney problems or liver problems. Conditions that are passed from parent to child (are inherited). Problems with a substance, such as: ?Having a reaction to a drug or a medicine. ?Stopping the use of a substance all of a sudden (withdrawal). A stroke. Disorders that affect how you develop. Sometimes, the cause may not be known. What increases the risk? Having someone in your family who has epilepsy. In this condition, seizures happen again and again over time. They have no clear cause. Having had a tonic clonic seizure before. This type of seizure causes you to: ?Tighten the muscles of the whole body. ?Lose consciousness. Having had a head injury or strokes before. Having had a lack of oxygen at . What are the signs or symptoms? There are many types of seizures. The symptoms vary depending on the type of seizure you have. Symptoms during a seizure Shaking that you cannot control (convulsions) with fast, jerky movements of muscles. Stiffness of the body. Breathing problems. Feeling mixed up (confused). Staring or not responding to sound or touch. Head nodding. Eyes that blink, flutter, or move fast. Drooling, grunting, or making clicking sounds with your mouth Losing control of when you pee or poop. Symptoms before a seizure Feeling afraid, nervous, or worried. Feeling like you may vomit. Feeling like: ?You are moving when you are not. ?Things around you are moving when they are not. Feeling like you saw or heard something before (sadiq donato). Odd tastes or smells. Changes in how you see. You may see flashing lights or spots. Symptoms after a seizure Feeling confused. Feeling sleepy. Headache. Sore muscles. How is this treated? If your seizure stops on its own, you will not need treatment. If your seizure lasts longer than 5 minutes, you will normally need treatment. Treatment may include: Medicines given through an IV tube. Avoiding things, such as medicines, that are known to cause your seizures. Medicines to prevent seizures. A device to prevent or control seizures. Surgery. A diet low in carbohydrates and high in fat (ketogenic diet). Follow these instructions at home: Medicines Take ahui-gof-jaxbsta and prescription medicines only as told by your doctor. Avoid foods or drinks that may keep your medicine from working, such as alcohol. Activity Follow instructions about driving, swimming, or doing things that would be dangerous if you had another seizure. Wait until your doctor says it is safe for you to do these things. If you live in the [place] ask your local department of [employer] when you can drive. Get a lot of rest. Teaching others Teach friends and family what to do when you have a seizure. They should: ?Help you get down to the ground. ?Protect your head and body. ?Loosen any clothing around your neck. ?Turn you on your side. ?Know whether or not you need emergency care. ?Stay with you until you are better. Also, tell them what not to do if you have a seizure. Tell them: ?They should not hold you down. ?They should not put anything in your mouth. General instructions Avoid anything that gives you seizures. Keep a seizure diary. Write down: ?What you remember about each seizure. ?What you think caused each seizure. Keep all follow-up visits. Contact a doctor if: You have another seizure or seizures. Call the doctor each time you have a seizure. The pattern of your seizures changes. You keep having seizures with treatment. You have symptoms of being sick or having an infection. You are not able to take your medicine. Get help right away if: You have any of these problems: ?A seizure that lasts longer than 5 minutes. ?Many seizures in a row and you do not feel better between seizures. ?A seizure that makes it harder to breathe. ?A seizure and you can no longer speak or use part of your body. You do not wake up right after a seizure. You get hurt during a seizure. You feel confused or have pain right after a seizure. These symptoms may be an emergency. Get help right away. Call your local emergency services (911 inthe [place] Do not wait to see if the symptoms will go away. Do not drive yourself to the hospital. Summary A seizure is a sudden burst of abnormal electrical and chemical activity in the brain. Seizures normally last from 30 seconds to 2 minutes. Causes of seizures include illness, injury to the head, low levels of blood sugar or salt, and certain conditions. Most seizures will stop on their own in less than 5 minutes. Seizures that last longer than 5 minutes are a medical emergency and need treatment right away. Many medicines are used to treat seizures. Take wqng-cuk-pyzywek and prescription medicines only astold by your doctor. This information is not intended to replace advice given to you by your health care provider. Make sure you discuss any questions you have with your health care provider. Document Revised: 08/05/2020 Document Reviewed: 08/05/2020 [employer] Patient Education 2022 [employer]. 07/03/2023 10:43:33 Alcohol Withdrawal Syndrome, Lvos-do-Ywht Alcohol Withdrawal Syndrome Alcohol withdrawal syndrome is a group of symptoms that can happen when a person who drinks heavilyand regularly stops drinking or drinks less. This condition may be mild or severe. It can also be life-threatening. What are the causes? Alcohol withdrawal syndrome happens when a person who has been drinking a lot of alcohol for a longtime stops drinking. What increases the risk? You are more likely to get alcohol withdrawal syndrome if: You drink more alcohol than is recommended. The limit is: ?0 1 drink a day for women who are not . ?0 2 drinks a day for men. You have used alcohol for a long time. You have had alcohol withdrawal syndrome in the past. You have had a seizure in the past when you stopped drinking. You are an older person. You use drugs. You have long-term (chronic) disease, such as heart or lung problems. You have depression. You are not eating well. What are the signs or symptoms? Symptoms of this condition include: Shaking. Sweating. Headache. Alcohol cravings. Feeling fearful, upset, grouchy, or depressed. Trouble sleeping or nightmares. Not being hungry (loss of appetite). Moderate symptoms of this condition include: Big changes in mood (mood swings). Trouble thinking clearly. Being bothered by light and sounds. Fast or uneven heartbeats (palpitations). Vomiting. Some symptoms are serious and must be treated right away. These symptoms are called delirium tremens, or DTs. Get help right away if you have symptoms of DTs. Symptoms include: High blood pressure. Fast heartbeat. Trouble breathing. Seizures. Seeing, hearing, feeling, smelling, or tasting things that are not there (hallucinations). How is this treated? Treatment may involve: Checking your blood pressure, pulse, and breathing. IV fluids to keep you hydrated. Medicines to treat your symptoms. Medicine to reduce anxiety. Medicine to prevent or control seizures. Multivitamins and B vitamins. Having a doctor check on you daily. If you need help to stop drinking, your doctor may recommend: Medicines. Counseling. Support groups. Follow these instructions at home: Take nyrs-vvf-pttdvur and prescription medicines only as told by your doctor. Do not drink alcohol. Do not drive until your doctor says that it is safe. Have someone stay with you or be available in case you need help. This should be someone you trust.This person can help you with your symptoms and can also help you to not drink. Drink enough fluid to keep your pee (urine) pale yellow. Think about joining a support group or a treatment program to help you stop drinking. Contact a doctor if: Your symptoms get worse. You cannot eat or drink without vomiting. You cannot stop drinking alcohol. Get help right away if: You have fast or uneven heartbeats. You have chest pain. You have trouble breathing. You are told you had a seizure. You see, hear, feel, smell, or taste something that is not there. You get very confused. These symptoms may be an emergency. Get help right away. Call 911. Do not wait to see if the symptoms will go away. Do not drive yourself to the hospital. Summary Alcohol withdrawal syndrome is a group of symptoms that can happen when a person who drinks heavilyand regularly stops drinking or drinks less. Delirium tremens (DTs) is a group of life-threatening symptoms. You should get help right away if you have these symptoms. Think about joining an alcohol support group or a treatment program. This information is not intended to replace advice given to you by your health care provider. Make sure you discuss any questions you have with your health care provider. Document Revised: 04/11/2022 Document Reviewed: 04/11/2022 [employer] Patient Education 2022 [employer]. Follow Up Care 07/03/2023 07:31:38 With:Amanda JOANA Address: [address] [place], [place] [id number] Business (1) When:1 to 2 days only if needed [facility]05-20-2024 Hospital Discharge instructions Patient Education 06/30/2023 23:51:55 Alcohol Intoxication Alcohol Intoxication Alcohol intoxication occurs when a person no longer thinks clearly or functions well after drinkingalcohol. This is also referred to as becoming impaired. Intoxication can occur with just one drink.The legal definition of alcohol intoxication depends on [...] stress. History of drug or alcohol abuse. Family history of drug or alcohol abuse. Combining alcohol with drugs. Low body weight. Binge drinking. What are [...] coma or , especially in people who do not drink alcohol often. How is this diagnosed? Your [...] rid of alcohol in the body. Counseling about the dangers of using alcohol. Treatment for substance use disorder. Oxygen therapy or a breathing machine (ventilator). Drinking alcohol for a long time can have long-term effects on your brain, heart, and digestive system. These effects can be serious and may also require treatment. Follow these instructions at home: Eating and drinking Do not drink alcohol if: ?Your health care provider tells you not to drink. ?You are , may be , or are planning to become . ?You are under the legal drinking age, or under 21 years old in the [place] ?You are taking medicines that should not [...] to drink alcohol, limit how much you have to: ?0 1 drink a day for women who are not . ? 0 2 drinks a day for men. ?Know how much alcohol is in your drink. In the [place] one drink equals one 12 oz bottle of beer (355 mL), one 5 oz glass of wine (148 mL), or one 1 oz glass of hard liquor (44 mL). Avoid drinking alcohol on an empty stomach. Alcohol increases urination. It is important to stay hydrated and avoid caffeine. Avoid drinking more than one drink per hour. When having multiple drinks, drink water or a non-alcoholic beverage between alcoholic drinks. General instructions Take duke-orh-lpibxpx and prescription medicines only as told by your health care provider. Do not drive after drinking any amount of alcohol. Plan for a designated ready mix truck driver or another way to go home. Have someone responsible stay with you while you are intoxicated. You should notbe left alone. Contact a health care provider if: You do not feel better after a few days. You have problems at work, at school, or at home due to drinking. Get help right away if: You have any of the following: ?Trouble staying awake. ?Moderate to severe trouble with coordination, speech, memory, or attention. ?You are told you may have had a seizure. ?Vomiting bright red blood or material that looks like coffee grounds. ?Bloody stool (feces). The blood may make your stool bright red, black, or tarry. These symptoms may be an emergency. Get help right away. Call 911. Do not wait to see if the symptoms will go away. Do not drive yourself to the hospital. Also, get help right away if: You have thoughts about hurting yourself or others. Take one of these steps if you feel like you may hurt yourself or others, or have thoughts about taking your own life: Call 911. Call the National Suicide Prevention Lifeline at or 841. This is open 24 hours a day. Text the Crisis Text Line at 027569. Summary Alcohol intoxication occurs when a person no longer thinks clearly or functions well after drinkingalcohol. Ask your health care provider if alcohol is safe for you. If your health care provider allows you to drink alcohol, limit how much you have. Contact your health care provider if drinking has caused you problems at work, school, or home. Get help right away if you have thoughts about hurting yourself or others. This information is not intended to replace advice given to you by your health care provider. Make sure you discuss any questions you have with your health care provider. Document Revised: 04/16/2022 Document Reviewed: 04/16/2022 [employer] Patient Education 2022 [employer]. Follow Up Care 06/30/2023 13:43:14 With:Amanda BARRIOS Address: [address] [place], [place] [id number] Business (1) When:Within 3 Day(s) [facility]05-19-2024 Evaluation + Plan noteExtracted from: Title:ED Note Author:Isai Hall DO Date: Acute alcohol intoxication ( F10.929: Alcohol use, unspecified with intoxication, unspecified) Drinking binge (Z78.9: Other specified health status) Orders: diphenhydrAMINE, 25 mg = 0.5 mL, Injection, IntraMuscular, Once, Stop date 06/30/23 15:41:00 EDT, STAT, Start date 06/30/23 15:41:00 EDT, 06/30/23 15:41:00 EDT diphenhydrAMINE, 50 mg = 1 mL, Injection, IV Push, Once, Stop date 06/30/23 15:46:00 EDT, Start date 06/30/23 15:46:00 EDT haloperidol, 5 mg = 1 mL, Injection, IntraMuscular, Once, Stop date 06/30/23 16:00:00 EDT, Routine, Start date 06/30/23 16:00:00 EDT, 06/30/23 15:41:00 EDT lorazepam, 1 mg = 0.5 mL, Injection, IV Push, Once, Stop date 06/30/23 14:59:00 EDT, STAT, Start date 06/30/23 14:59:00 EDT, 06/30/23 14:59:00 EDT ondansetron, 4 mg = 2 mL, Injection, IV Push, Once, Stop date 06/30/23 13:46:00 EDT, STAT, Start date 06/30/23 13:46:00 EDT, 06/30/23 13:46:00 EDT Sodium Chloride 0.9% intravenous solution, 1,000 mL, Soln-IV, IV, Once, Stop date 06/30/23 13:45:00 EDT, STAT, Start date 06/30/23 13:45:00 EDT, Infuse over 61, minute(s) thiamine + Sodium Chloride 0.9% intravenous solution 50 mL, 100 mg = 1 mL, Injection, IV Piggyback, Once, Stop date 06/30/23 14:00:00 EDT, STAT, Start date 06/30/23 14:00:00 EDT, 51 mL/hr, Infuse over 60 minute(s) Basic Metabolic Panel Beta hCG Qual CBC w/ Auto Diff Continuous Pulse Oximetry Drug Screen Urine ED Cardiac Monitoring eGFR Ethanol Level Extra Blue Tube Hepatic Function Panel Routine Capillary Glucose POC Saline Lock Insert UA with Cult Rflx [facility]05-06-2024 Hospital Discharge instructions Patient Education 06/17/2023 16:05:34 Dysuria Dysuria Dysuria is pain or discomfort [...] Follow these instructions at home: Medicines Take ukdy-zzj-ysopdco and prescription medicines only as told by [...] provider. Document Revised: 09/09/2020 Document Reviewed: 09/09/2020 [employer] Patient Education 2022 [employer]. 06/17/2023 15:52:47 Safe Sex Safe Sex Practicing safe sex [...] STI. Follow these instructions at home: Take cbxc-mqr-eqxikki and prescription medicines only as told by [...] provider. Document Revised: 07/04/2020 Document Reviewed: 07/04/2020 [employer] Patient Education 2022 [employer]. Follow Up Care 06/17/2023 11:53:17 With:Amanda BARIROS CNP Address: [address] [place] [address] When: Unknown [facility] 04-23-2024 Hospital Discharge instructions Patient Education 06/03/2023 22:44:19 Urinary Tract Infection, Adult Urinary Tract Infection, Adult A urinary tract infection (UTI) is an infection of any part of the urinary tract. The urinary tractincludes the kidneys, ureters, bladder, and urethra. These organs make, store, and get rid of urinein the body. An upper UTI affects the ureters and kidneys. A lower UTI affects the bladder and urethra. What are the causes? Most urinary tract infections are caused by bacteria in your genital area around your urethra, where urine leaves your body. These bacteria grow and cause inflammation of your urinary tract. What increases the risk? You are more likely to develop this condition if: You have a urinary catheter that stays in place. You are not able to control when you urinate or have a bowel movement (incontinence). You are female and you: ?Use a spermicide or diaphragm for control. ?Have low estrogen levels. ?Are . You have certain genes that increase your risk. You are sexually active. You take antibiotic medicines. You have a condition that causes your flow of urine to slow down, such as: ?An enlarged prostate, if you are male. ?Blockage in your urethra. ?A kidney stone. ?A nerve condition that affects your bladder control (neurogenic bladder). ?Not getting enough to drink, or not urinating often. You have certain medical conditions, such as: ?Diabetes. ?A weak disease-fighting system (immunesystem). ?Sickle cell disease. ?Gout. ?Spinal cord injury. What are the signs or symptoms? Symptoms of this condition include: Needing to urinate right away (urgency). Frequent urination. This may include small amounts of urine each time you urinate. Pain or burning with urination. Blood in the urine. Urine that smells bad or unusual. Trouble urinating. Cloudy urine. Vaginal discharge, if you are female. Pain in the abdomen or the lower back. You may also have: Vomiting or a decreased appetite. Confusion. Irritability or tiredness. A fever or chills. Diarrhea. The first symptom in older adults may be confusion. In some cases, they may not have any symptoms until the infection has worsened. How is this diagnosed? This condition is diagnosed based on your medical history and a physical exam. You may also have other tests, including: Urine tests. Blood tests. Tests for STIs (sexually transmitted infections). If you have had more than one UTI, a cystoscopy or imaging studies may be done to determine the cause of the infections. How is this treated? Treatment for this condition includes: Antibiotic medicine. Fsnz-cyx-yulxrkt medicines to treat discomfort. Drinking enough water to stay hydrated. If you have frequent infections or have other conditions such as a kidney stone, you may need to see a health care provider who specializes in the urinary tract (urologist). In rare cases, urinary tract infections can cause sepsis. Sepsis is a life- threatening condition that occurs when the body responds to an infection. Sepsis is treated in the hospital with IV antibiotics, fluids, and other medicines. Follow these instructions at home: Medicines Take yppl-jtd-oqcuahi and prescription medicines only as told by your health care provider. If you were prescribed an antibiotic medicine, take it as told by your health care provider. Do notstop using the antibiotic even if you start to feel better. General instructions Make sure you: ?Empty your bladder often and completely. Do not hold urine for long periods of time. ?Empty your bladder after sex. ?Wipe from front to back after urinating or having a bowel movement if you are female. Use each tissue only one time when you wipe. Drink enough fluid to keep your urine pale yellow. Keep all follow-up visits. This is important. Contact a health care provider if: Your symptoms do not get better after 1 2 days. Your symptoms go away and then return. Get help right away if: You have severe pain in your back or your lower abdomen. You have a fever or chills. You have nausea or vomiting. Summary A urinary tract infection (UTI) is an infection of any part of the urinary tract, which includes the kidneys, ureters, bladder, and urethra. Most urinary tract infections are caused by bacteria in your genital area. Treatment for this condition often includes antibiotic medicines. If you were prescribed an antibiotic medicine, take it as told by your health care provider. Do notstop using the antibiotic even if you start to feel better. Keep all follow-up visits. This is important. This information is not intended to replace advice given to you by your health care provider. Make sure you discuss any questions you have with your health care provider. Document Revised: 09/09/2020 Document Reviewed: 09/09/2020 [employer] Patient Education 2022 [employer]. Follow Up Care 06/03/2023 20:13:28 With:Amanda BARRIOS Address: [address] [place], [place] [id number] Business (1) When:Within 3 Day(s) [facility]04-22-2024 Evaluation + Plan noteExtracted from: Title:ED Note Author:Elliott Hicks PA-C te:06/03/23 UTI (urinary tract infection ) (N39.0: Urinary tract infection, site not specified) Orders: cephalexin, 500 mg = 1 cap(s), Oral, q6hr, X 7 day(s), # 28 cap(s), Refills(s) 0, Pharmacy: [facility], 154, cm, 06/03/23 20:33:00 EDT, Height/Length Dosing, 71.8, kg, 06/03/23 20:33:00 EDT, Weight Dosing cephalexin, 500 mg = 1 cap(s), Cap, Oral, Once, Stop date 06/03/23 22:05:00 EDT, STAT, Start date 06/03/23 22:05:00 EDT, 06/03/23 22:05:00 EDT ibuprofen, 800 mg = 1 tab(s), Tab, Oral, Once, Stop date 06/03/23 22:05:00 EDT, STAT, Start date 06/03/23 22:05:00 EDT, 06/03/23 22:05:00 EDT ondansetron, 4 mg = 1 tab(s), Tab-Dis, Oral, Once, Stop date 06/03/23 21:30:00 EDT, STAT, Start date 06/03/23 21:30:00 EDT, 06/03/23 21:30:00 EDT ondansetron, 4 mg = 1 tab(s), Oral, q8hr, PRN Nausea/Vomiting, # 12 tab(s), Refills(s) 0, Pharmacy: [facility], 154, cm, 06/03/23 20:33:00 EDT, Height/Length Dosing, 71.8, kg, 06/03/23 20:33:00 EDT, Weight Dosing Basic Metabolic Panel Beta hCG Qual CBC w/ Auto Diff eGFR Extra Blackman Tube Extra SST Tube Hepatic Function Panel Lipase Level UA with Cult Rflx Urine Culture Future Appointments Appointment Date:06/04/2023 11:20:00 AM Scheduled Provider:Amanda BARRIOS CNP Location:[facility] Appointment Type: Open Diagnostic Tests Pending * Urine Culture 06/03/23 [facility]03-09-2024 Hospital Discharge instructions Patient Education 04/20/2023 05:00:35 Alcohol Intoxication Alcohol Intoxication Alcohol intoxication occurs when a person no longer thinks clearly or functions well after drinkingalcohol. This is also referred to as becoming impaired. Intoxication can occur with just one drink.The legal definition of alcohol intoxication depends on [...] stress. History of drug or alcohol abuse. Family history of drug or alcohol abuse. Combining alcohol with drugs. Low body weight. Binge drinking. What are [...] coma or , especially in people who do not drink alcohol often. How is this diagnosed? Your [...] rid of alcohol in the body. Counseling about the dangers of using alcohol. Treatment for substance use disorder. Oxygen therapy or a breathing machine (ventilator). Drinking alcohol for a long time can have long-term effects on your brain, heart, and digestive system. These effects can be serious and may also require treatment. Follow these instructions at home: Eating and drinking Do not drink alcohol if: ?Your health care provider tells you not to drink. ?You are , may be , or are planning to become . ?You are under the legal drinking age, or under 21 years old in the [place] ?You are taking medicines that should not [...] to drink alcohol, limit how much you have to: ?0 1 drink a day for women who are not . ? 0 2 drinks a day for men. ?Know how much alcohol is in your drink. In the [place] one drink equals one 12 oz bottle of beer (355 mL), one 5 oz glass of wine (148 mL), or one 1 oz glass of hard liquor (44 mL). Avoid drinking alcohol on an empty stomach. Alcohol increases urination. It is important to stay hydrated and avoid caffeine. Avoid drinking more than one drink per hour. When having multiple drinks, drink water or a non-alcoholic beverage between alcoholic drinks. General instructions Take bmqr-bak-lmlrfyv and prescription medicines only as told by your health care provider. Do not drive after drinking any amount of alcohol. Plan for a designated ready mix truck driver or another way to go home. Have someone responsible stay with you while you are intoxicated. You should notbe left alone. Contact a health care provider if: You do not feel better after a few days. You have problems at work, at school, or at home due to drinking. Get help right away if: You have any of the following: ?Trouble staying awake. ?Moderate to severe trouble with coordination, speech, memory, or attention. ?You are told you may have had a seizure. ?Vomiting bright red blood or material that looks like coffee grounds. ?Bloody stool (feces). The blood may make your stool bright red, black, or tarry. These symptoms may be an emergency. Get help right away. Call 911. Do not wait to see if the symptoms will go away. Do not drive yourself to the hospital. Also, get help right away if: You have thoughts about hurting yourself or others. Take one of these steps if you feel like you may hurt yourself or others, or have thoughts about taking your own life: Call 911. Call the National Suicide Prevention Lifeline at or 531. This is open 24 hours a day. Text the Crisis Text Line at 898191. Summary Alcohol intoxication occurs when a person no longer thinks clearly or functions well after drinkingalcohol. Ask your health care provider if alcohol is safe for you. If your health care provider allows you to drink alcohol, limit how much you have. Contact your health care provider if drinking has caused you problems at work, school, or home. Get help right away if you have thoughts about hurting yourself or others. This information is not intended to replace advice given to you by your health care provider. Make sure you discuss any questions you have with your health care provider. Document Revised: 04/16/2022 Document Reviewed: 04/16/2022 [employer] Patient Education 2022 [employer]. Follow Up Care 04/19/2023 21:58:10 With:Marie Monzon [phone] Address:Unknown When:04/22/2023 With:Amanda BARRIOS Address: [address] [place], [place] [id number] [facility] (1) When:04/22/2023 Comments:Follow-up with your primary care provider in 3 to 5 days. If symptoms worsen, do not improve, or new symptoms arise please report back to emergency department for further evaluation. [facility]03-08-2024 Evaluation + Plan noteExtracted from: Title:ED Note Author:Elliott Hicks PA-C te:04/19/23 Alcohol intoxication (F10.92 9: Alcohol use, unspecified with intoxication, unspecified) Orders: ondansetron, 4 mg = 1 tab(s), Tab-Dis, Oral, Once, Stop date 04/19/23 22:11:00 EST, STAT, Start date 04/19/23 22:11:00 EST, 04/19/23 22:11:00 EST Basic Metabolic Panel CBC w/ Auto Diff Drug Screen Urine eGFR Ethanol Level Hepatic Function Panel Lipase Level Magnesium Level U Beta Hcg Qual UA With Cult Reflex Future Appointments Appointment Date:05/01/2023 08:20:00 AM Scheduled Provider:Amanda BARRIOS CNP Location:[facility] Appointment Type:[facility]11-26-2023 NoteFishUniversity of Maryland Rehabilitation & Orthopaedic InstituteComment on above:Result Comment: Electronically Signed By: Russ BLANK.br\Date and Time Signed: 01/06/23 10:27 EST\.br\Electronically Co-Signed By: Endy Raphael DO.br\Date and Time Co-Signed: 01/06/23 12:24 EST 01-06-2023 Evaluation + Plan noteExtracted from: Title:Discharge Note Author:Shabana BLANK Date:01/06/23 Hemodynamically stable condi tion Discharged to [...] SALOMÓN Singh Within 2 to [address] [address]- Additional Instructions: [facility] Additional Instructions: [facility]: [phone] Additional Instructions: [facility] [phone] Additional Instructions: Chemical Dependency: Additional Instructions: Diamante [place] Within 2 to 4 days [address] [facility], [address] [place] [id number] [facility] (1) Additional Instructions: Alcohol Withdrawal Syndrome, Ylnf-sy-Aifs Alcohol Use Disorder Alcohol Intoxication, Guru-fn-Srwv Alcohol Abuse and Nutrition Alcohol Abuse and Dependence Information, Adult Extracted from: Title:APSO Note- Neurology Author:Kris Billings RN Date:01/06/23 The patient is a 33-year-old right-handed [...] the case with the hospitalist Elisa Rodrigues SERVICE SUPERVISOR [2] 1. Involuntary movements (R25.9: Unspecified abnormal [...] Extracted from: Title:Admission H & P Author:EDISON Azra AGUILAR Date:01/05/23 1. Involuntary movements (R2 5.9: Unspecified abnormal involuntary movements) Note when patient was admitted in August that witnessed an episode when awoken lifting of her upper extremities which was transient in nature. Advised by the emergency insole department worker that patient had seized at home but [...] I have been advised by the emergency insole department worker that the local rehab program called get [...] and evaluated neurologically. We will ask for health care social worker to assist Ordered: Consult to Neurology EEG [...] had emergency department visitations both here in [place] with withdrawal symptoms and had access to Ativan, patient implies over a week ago at a inpatient facility in [place] described above been given phenobarbital which could [...] Cardiac Monitoring CBC w/ Auto Diff Clinical [place] Withdrawal Assessment Clinical [place] Withdrawal Assessment Clinical [place] Withdrawal Assessment Clinical [place] Withdrawal Assessment Communication Order Physician to Nursing [...] the case with the hospitalist Elisa Rodrigues SERVICE SUPERVISOR 1. Involuntary movements (R25.9: Unspecified abnormal involuntary [...] View XR Knee Complete 4+ Views Left [facility]11-25-2023 Hospital Discharge instructions Patient Education 2023 15:26:41 Alcohol Withdrawal Syndrome, Hrvm-lw-Plsh Alcohol Withdrawal Syndrome When a person who [...] away. Follow these instructions at home: Take imyb-nnk-gyshydg and prescription medicines only as told by [...] provider. Document Revised: 12/22/2021 Document Reviewed: 12/19/2020 [employer] Patient Education 2022 [employer]. 2023 15:26:41 Alcohol Use Disorder Alcohol Use [...] facility. Counseling. This may involve motivational interviewing (NH), family therapy, or cognitive behavioral therapy (CBT). [...] physical reaction when you drink (aversion therapy). [place] help groups such as Alcoholics Anonymous (AA). These groups are led by people who have quit drinking. The groups provide emotional support, advice, and guidance. Some people with this condition benefit from a combination of treatments provided by specialized substance use treatment centers. Follow these instructions at home: Medicines Take bvjc-ulg-lpzyhfb and prescription medicines only as told by [...] department or: Call your local emergency services (975 in the U.[place].). Call a suicide crisis helpline, such as the National Suicide Prevention Lifeline at or 592 in the U.S. This is open 24 hours a day in the [place] Text the Crisis Text Line at 492901 (in the [place].). Summary Alcohol use disorder [...] provider. Document Revised: 12/22/2021 Document Reviewed: 12/17/2019 [employer] Patient Education 2022 [employer]. 2023 15:26:41 Alcohol Intoxication, Ehkm-nb-Ntxb Alcohol Intoxication Alcohol intoxication happens when you [...] water) between your drinks. General instructions Take jpru-jmq-qqsabmo and prescription medicines only as told by your doctor. Do not drive after drinking any amount of alcohol. Plan for a designated ready mix truck driver or another way to go [...] the National Suicide Prevention Lifeline at or 111 in the [place]. This is open 24 [...] provider. Document Revised: 12/22/2021 Document Reviewed: 12/05/2021 [employer] Patient Education 2022 [employer]. 2023 15:26:41 Alcohol Abuse and Nutrition Alcohol [...] Your health care provider or diet and learning development specialist (dietitian) will work with you to design [...] provider. Document Revised: 12/22/2021 Document Reviewed: 12/19/2020 [employer] Patient Education 2022 [employer]. 2023 15:26:41 Alcohol Abuse and Dependence Information, [...] find support Your health care provider. [employer]: www.smartrecovery.org Therapy and support groups Local treatment centers or chemical dependency counselors. Local AA groups in your community: www.aa.org Where to find more information Centers for Disease Control and Prevention: www.cdc.gov National [place] on Alcohol Abuse and Alcoholism: www.niaaa.nih.gov Alcoholics [...] the National Suicide Prevention Lifeline at or 928 in the U.S. This is open 24 [...] provider. Document Revised: 12/22/2021 Document Reviewed: 04/07/2019 [employer] Patient Education 2022 [employer]. Follow Up Care 2023 00:52:31 With:Francisco Cruz MD, NEU Address: [address] [address] When:2 to 4 weeks With:[facility] Address:Unknown When: Unknown With:[facility]: [phone] Address:Unknown When: Unknown [facility] [phone] Address:Unknown When: Unknown With:Chemical Dependency: Address:Unknown When: Unknown With:Diamante Cleveland Address: [address] [place] [address], [address] [place] [id number] [facility] (1) When:2 to 4 days [facility]11-25-2023 NoteFisher Sinai Hospital Of BaltimoreComment on above:Result Comment: Electronically Signed By: Azra HOGAN DO.ella\Date and Time Signed: 01/05/23 08:01 [id number] Evaluation + Plan note Extracted from: Title:ED [...] Troponin 0 Hr. XR Chest Single View [facility]11-22-2023 Hospital Discharge instructions Patient Education 01/02/2023 [...] beverage between alcoholic drinks. General instructions Take bqkn-cvk-rvihuws and prescription medicines only as told by your health care provider. Do not drive after drinking any amount of alcohol. Plan for a designated ready mix truck driver or another way to go [...] the National Suicide Prevention Lifeline at or 691 in the [place].S. This is open 24 [...] provider. Document Revised: 12/22/2021 Document Reviewed: 12/05/2021 [employer] Patient Education 2022 [employer] 01/02/2023 04:48:50 Palpitations Palpitations Palpitations are [...] ask your health careprovider. General instructions Take akfx-byy-xzmmfmn and prescription medicines only as told by [...] provider. Document Revised: 06/21/2021 Document Reviewed: 06/21/2021 [employer] Patient Education 2022 [employer]. Follow Up Care 01/02/2023 00:36:12 With:Diamante Cleveland Address: [address] [place] [address], [address] [place] [phone] Business (1) When:Within 3 Day(s) [facility]11-04-2023 History of Present illness Narrative* Eric Najera LCSW - 12/15/2022 7:38 PM EDT EPAT - Social Work Psychiatric Assessment Arrival Details Mode of Arrival: Ambulatory Admission Source: Other (Comment) Admission Type: Involuntary ([facility], detox [place]) EPAT Assessment Start Date: 12/15/22 EPAT Assessment Start Time: 1422 Name of Laser Engineer: FRANKLIN Smith History of Present Illness Admission Reason: Psych assessment HPI: 32yr old female with history of bipolar disorder, anxiety disorder, dually diagnosed with alcohol use dependence and opioid use disorder and h/o other substances, presenting to the ED after change of mental status apparent at [facility] ([facility]) which is a detoxification unit within [facility]. The transfer to ED was last night and initial attempt at EPAT psych assess was midnight. She was not able to participate meaningfully for it, so this psych assess was re-ordered this afternoon with enough improvement for this interview. The referral to ED from [facility] was d/t disorientation and hallucinations that were [...] She said she was with [facility]. When asked specifically about detox hx, she said [facility] 2010. She was at [facility] just a few days ago (12/10). Oriented only to self and generally to location that she's in the hospital. Readmission Information Readmission within 30 Days: Yes Previous ED Visit Date and Reason : 12/10 at [facility], then to [facility] until transfer for this assessment Previous Discharge [...] Psychiatric History: Chart history indicates outpatient at [facility]. Pt unable to recall any Past Psychiatric Meds/Treatments: None known per patient. The following is the only info found in chart: Has been treated at [facility]; has not taken any of her psychotropic prescriptions for several months due to weight gain; Chart only shows Vraylar 1.5. Past Violence/Victimization History: unable to assess Current Mental Health Contacts Insulator Technician Name/Phone Number: unknown Insulator Technician Last Appointment Date: unknown Provider Name/Phone Number: [facility] Provider Last Appointment Date: November Support System: [...] does he live? With his father in [place]. Q: When do you see him? Every [...] Calculated Risk Score: No intervention is necessary [place] Suicide Severity Rating Scale (Screener/Recent Self-Report) 1. [...] of Arrival: Ambulatory Admission Source: Other (Comment) ([facility]) Admission Type: Involuntary EPAT Assessment Start Date: 12/15/22 EPAT Assessment Start Time: 0020 Name of Laser Engineer: Emy Art [facility] History of Present Illness Admission Reason: Evaluation HPI: 32yr old female with history of mood disorder, anxiety, alcohol use disorder, and Opioid Use Disorder presenting to the ED after change of mental status apparent at [facility] which is a detoxification unit within [facility]. Provider Note and chart history [...] terrible historian reporting she has been at [facility] for IOP for the last 9 months . She was actuallyadmitted there on 12/12. She is not reporting thoughts of harming herself or others. Readmission Information Readmission within 30 Days: Yes Previous ED Visit Date and Reason : 12/10 at [facility] Previous Discharge Date and Location: 12/10 [...] to assess: Chart history indicates outpatient at [facility] Past Psychiatric Meds/Treatments: per chart stopped medications except for Vraylar 1.5 several months ago due to weight gain Past Violence/Victimization History: unable to assess Current Mental Health Contacts Insulator Technician Name/Phone Number: unknown Insulator Technician Last Appointment Date: unknown Provider Name/Phone Number: [facility] Provider Last Appointment Date: November Support System: Immediate family Living Arrangement: House Income Information Employment Status for: Patient Employment Status: Other (Comment) (unable to assess) [email or web address] Service/Education History Current or Previous Service: None Education Level: (unable to assess) Social/Cultural History Social History: living in [place] with mother and 10yr old son Important [...] now?: No Calculated Risk Score: Potential Risk [place] Suicide Severity Rating Scale (Screener/Recent Self-Report) 1. [...] had been sent to [facility] from [facility] for detox on 12/12.[facility] nursing staff [...] is wandering around asking the Tele[employer] seed collector to help her find her son and [...] Transition of Care Note. I received Lyle Rachel Gee in signout from Dr. Steele. Please see the previous ED provider note forall HPI, PE and MDM up to the time of signout at 0100. This is in addition to the primary record. In brief Lyle Bailey is an 32 y.o. female presenting for Chief Complaint Patient presents with Psychiatric Evaluation Pt is from [place] and is going through alcohol withdrawal, pt states she has been seeing people who are not there. Pt is also having some anxiety. Pt states she's had seizures before when she goes through [facility] At the time of signout we were awaiting: EPAT evaluation. ED Course as of 12/16/22 0248 Fri Dec 14, 2022 2244 Comprehensive Metabolic [...] Transition of Care Note. I received Lyle Bailey in signout from Dr. Mcdowell. Please see the previous ED provider note for all HPI, PE and MDM up to the time of signout at 0700. This is in addition to the primary record. In brief Lyle Bailey is an 32 y.o. female presenting for [facility] Chief Complaint Patient presents with Psychiatric Evaluation Pt is from [place] and is going through alcohol withdrawal, pt [...] [SP] Jessica Mcdowell DO Diagnoses as of 12/15/22 1516 Alcohol [...] or schizoaffective type with some psychotic features. [place] slip was placed to prevent the patient from leaving the department. At the time of signout the patient is pending EPAT placement. Final diagnoses: [F10.939] Alcohol withdrawal syndrome with complication (CMS/HCC) [F31.12] Bipolar affective disorder, currently manic, moderate (CMS/HCC) Procedure Procedures John Tobias MD * Rosa Elena Howe MD - 12/14/2022 8:53 PM EDT Emergency Medicine Transition of Care Note. I received Lyle Bailey in signout from Dr. Tobias. Please see the previous ED provider note for all HPI, PE and MDM up to the time of signout at 1700. This is in addition to the primary record. In brief Lyle Bailey is an 32 y.o. female presenting for Chief Complaint Patient presents with Psychiatric Evaluation Pt is from [place] and is going through alcohol withdrawal, pt states she has been seeing people who are not there. Pt is also having some anxiety. Pt states she's had seizures before when she goes through [facility] At the time of signout we were awaiting: ED Course as of 12/15/22 191SatDec 14, 2022 2244 Comprehensive Metabolic Panel(!) Reviewed [...] [SP] Jessica Mcdowell DO Diagnoses as of 12/15/22 1910 Alcohol withdrawal syndrome with complication (CMS/HCC) Bipolar [...] Procedures Rosa Elena Howe MD * Jessica DO Jeremias - 12/14/2022 8:53 PM EDT Emergency Medicine Transition of Care Note. I received Lyle Bailey in signout from Dr. Howe. Please see the previous ED provider note for all HPI, PE and MDM up to the time of signout at 0100. This is in addition to the primary record. In brief Lyle Bailey is an 32 y.o. female presenting for Chief Complaint Patient presents with Psychiatric Evaluation Pt is from [place] and is going through alcohol withdrawal, pt states she has been seeing people who are not there. Pt is also having some anxiety. Pt states she's had seizures before when she goes through [facility] At the time of signout we were awaiting: EPAT to place the patient. ED Course as of 12/16/22250Dec 14, 20222243 Comprehensive Metabolic Panel(!) Reviewed and reassuring, Mild ALT/AST elevation which is appropriate in setting of etoh use disorder history [AH] 2248 Acute Toxicology Panel, Blood Acute tox negative [...] Jessica Mcdowell DO Diagnoses as of 12/16/22 025 Alcohol withdrawal syndrome with complication (CMS/HCC) Bipolar [...] Medicine Transition of Care Note. I received Lyel Bailey in signout from Dr. Handy. Please see the previous ED provider note for all HPI, PE and MDM up to the time of signout at 1700. This is in addition to the primary record. In brief Lyle Bailey is an 32 y.o. female presenting for Chief Complaint Patient presents with Psychiatric Evaluation Pt is from [place] and is going through alcohol withdrawal, pt states she has been seeing people who are not there. Pt is also having some anxiety. Pt states she's had seizures before when she goes through [facility] At the time of signout we were awaiting: ED Course as of 12/16/22 1842 Fri Dec 14, 2022 2244 Comprehensive Metabolic [...] Jessica Mcdowell DO Diagnoses as of 12/16/22 1842 Alcohol withdrawal syndrome with complication (CMS/HCC) Bipolar affective disorder, currently manic, moderate (CMS/HCC) MDM Final diagnoses: [F10.939] Alcohol withdrawal syndrome with complication (CMS/HCC) [F31.12] Bipolar affective disorder, currently manic, moderate (CMS/HCC) Patient was pending transfer. She has now been accepted to [facility] and will be transferred there for further psychiatric work-up. Procedure Procedures Rosa Elena Howe MD documented in this [facility] Work Phone: 1(419) 466-440011-03-2023 Miscellaneous Notes* Significant Event - John Tobias [...] undersigned has reason to believe that: Lyle Bailey Is a mentally ill person subject to [...] of a correctional facility, provided that the dooryz-arf-vrozn period shall be extended by the length of any hospitalization or incarceration of the person thatoccurred within the jbciis-kvb-tdpen period. (ii) Within the forty-eight months prior to the filing of an affidavit seeking court-ordered treatment of the person under section 5122.111 of the Revised Code, the lack of compliance resulted in oneor more acts of serious violent behavior toward self or others or threats of, or attempts at, serious physical harm to self or others, provided that the gzzwq-nzgwu-nhsft period shall be extended by the length of any hospitalization or incarceration of the person that occurred within the joeiv-thgfz-jmrgc period. (c) The person, as a result [...] licensed physician, licensed clinical psychologist, health or police stenographer, sheet metal journeyman or side stitching machine operator. (Statement shall include the circumstances under which [...] the emergency department for psychiatric evaluation from [facility]. She wasbeing treated for alcohol withdrawal. On my evaluation she appears tired, agitated, she is pacing, she is unable to carry on a linear and coherent conversation. She appears internally stimulated. 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 John Tobias MD 12/15/[address]22 [address] of Employment: [facility] STATEMENT OF OBSERVATION BY PSYCHIATRIST, LICENSED PHYSICIAN, OR LICENSED CLINICAL PSYCHOLOGIST, IFAPPLICABLE Place of Observation ([facility]., [facility], office, emergency facility) (If applicable, [...] undersigned has reason to believe that: Lyle Bailey Is a mentally ill person subject to [...] of a correctional facility, provided that the orfbyc-sby-wxibq period shall be extended by the length of any hospitalization or incarceration of the person thatoccurred within the tgettz-jlz-dcbhh period. (ii) Within the forty-eight months prior to the filing of an affidavit seeking court-ordered treatment of the person under section 5122.111 of the Revised Code, the lack of compliance resulted in oneor more acts of serious violent behavior toward self or others or threats of, or attempts at, serious physical harm to self or others, provided that the jdrjj-qmiae-igdyk period shall be extended by the length of any hospitalization or incarceration of the person that occurred within the zpdel-uhhzm-jmpay period. (c) The person, as a result [...] licensed physician, licensed clinical psychologist, health or police stenographer, sheet metal journeyman or side stitching machine operator. (Statement shall include the circumstances under which [...] the emergency department for psychiatric evaluation from [facility]. She wasbeing treated for alcohol withdrawal. On my evaluation she appears tired, agitated, she is pacing, she is unable to carry on a linear and coherent conversation. She appears internally stimulated. 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 Rosa Elena Howe MD 12/16/2022 Place of Employment: [facility] STATEMENT OF OBSERVATION BY PSYCHIATRIST, LICENSED PHYSICIAN, OR LICENSED CLINICAL PSYCHOLOGIST, IFAPPLICABLE Place of Observation (e.g., [facility], general hospital, office, emergency facility) (If applicable, please complete) Rosa Elena Howe MD 12/16/2022 documented in this [facility] Work Phone: 1(255) 286-239711-03-2023 Note* Significant Event - John Tobias MD [...] undersigned has reason to believe that: Lyle Bailey Is a mentally ill person subject to [...] of a correctional facility, provided that the pvjxik-wvq-vjqzl period shall be extended by the length of any hospitalization or incarceration of the person thatoccurred within the hwszll-cln-oagif period. (ii) Within the forty-eight months prior to the filing of an affidavit seeking court-ordered treatment of the person under section 5122.111 of the Revised Code, the lack of compliance resulted in oneor more acts of serious violent behavior toward self or others or threats of, or attempts at, serious physical harm to self or others, provided that the mdjbb-gvynp-mdrsn period shall be extended by the length of any hospitalization or incarceration of the person that occurred within the vwqng-odknt-tqjaz period. (c) The person, as a result [...] licensed physician, licensed clinical psychologist, health or police stenographer, sheet metal journeyman or side stitching machine operator. (Statement shall include the circumstances under which [...] the emergency department for psychiatric evaluation from [place]. She wasbeing treated for alcohol withdrawal. On my evaluation she appears tired, agitated, she is pacing, she is unable to carry on a linear and coherent conversation. She appears internally stimulated. 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 John Tobias MD 12/15/2022 Place of Employment: [place] STATEMENT OF OBSERVATION BY PSYCHIATRIST, LICENSED PHYSICIAN, OR LICENSED CLINICAL PSYCHOLOGIST, IFAPPLICABLE Place of Observation (e.g., [facility], [facility], office, emergency facility) (If applicable, please complete) John Tobias MD 12/15/2022 [facility] Work Phone: 1(628) 547-247711-03-2023 Note* Significant Event - Rosa Elena oHwe MD - 12/14/2022 8:53 PM EDT Application [...] undersigned has reason to believe that: Lyle Bailey Is a mentally ill person subject to [...] of a correctional facility, provided that the qdecxr-wst-urzpd period shall be extended by the length of any hospitalization or incarceration of the person thatoccurred within the wqnpse-qhz-ifmaz period. (ii) Within the forty-eight months prior to the filing of an affidavit seeking court-ordered treatment of the person under section 5122.111 of the Revised Code, the lack of compliance resulted in oneor more acts of serious violent behavior toward self or others or threats of, or attempts at, serious physical harm to self or others, provided that the bengs-kqgif-zscqo period shall be extended by the length of any hospitalization or incarceration of the person that occurred within the qdxzy-indqa-yvvsr period. (c) The person, as a result [...] licensed physician, licensed clinical psychologist, health or police stenographer, sheet metal journeyman or side stitching machine operator. (Statement shall include the circumstances under which [...] the emergency department for psychiatric evaluation from [place]. She wasbeing treated for alcohol withdrawal. On my evaluation she appears tired, agitated, she is pacing, she is unable to carry on a linear and coherent conversation. She appears internally stimulated. 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 Rosa Elena Howe MD 12/16/2022 Place of Employment: [facility] STATEMENT OF OBSERVATION BY PSYCHIATRIST, LICENSED PHYSICIAN, OR LICENSED CLINICAL PSYCHOLOGIST, IFAPPLICABLE Place of Observation (e.g., [facility], general hospital, office, emergency facility) (If applicable, please complete) Rosa Elena Howe MD 12/16/2022 [facility] Work Phone: 1(967) 432-538610-30-2023 Hospital Discharge instructions Patient Education 12/10/2022 21:57:34 [...] beverage between alcoholic drinks. General instructions Take whuc-egm-cofwclj and prescription medicines only as told by your health care provider. Do not drive after drinking any amount of alcohol. Plan for a designated ready mix truck driver or another way to go [...] the National Suicide Prevention Lifeline at or 699 in the U.S. This is open 24 [...] provider. Document Revised: 12/22/2021 Document Reviewed: 12/05/2021 [employer] Patient Education 2022 [employer]. Follow Up Care 12/10/2022 17:22:08 With:[facility] Address:Unknown When:12/13/2022 21:39:40 With:Diamante Cleveland Address: [address] [place] [address], [facility] [address] Business (1) When:Within 3 Day(s) [facility]10-30-2023 Evaluation + Plan noteExtracted from: Title:ED Note Author:Eric Forbes DO Date: Alcohol withdrawal (F10.939: Alcohol use, unspecified with withdrawal, unspecified) Ordered: lorazepam, 1 mg = 1 tab(s), Oral, q8hr, Take one by mouth every eight hours as needed, X 4 day(s), # 12 tab(s), Refills(s) 0, Pharmacy: [facility], 157, cm, 12/10/22 8:08:00 EDT, Height/Length [...] nausea, # 10 tab(s), Refills(s) 0, Pharmacy: [facility], 157, cm, 12/10/22 8:08:00 EDT, Height/Length [...] With Cult Reflex XR Chest Single View [facility]10-30-2023 Evaluation + Plan noteExtracted from: Title:ED Note Author:Sima HARO, Fabricio Garrett te:12/10/22 1. Alcohol intoxication (F10 .929: Alcohol use, unspecified with intoxication, unspecified) Orders: lorazepam, 2 mg = 2 tab(s), Tab, Oral, Once, Stop date 12/10/22 17:27:00 EDT, STAT, Start date 12/10/22 17:27:00 EDT, 12/10/22 17:27:00 EDT Ethanol Level [facility]10-30-2023 Hospital Discharge instructions Patient Education 12/10/2022 [...] groups. Follow these instructions at home: Take mwsx-lxy-kfqmzfe and prescription medicines (including vitamin supplements) only [...] provider. Document Revised: 12/22/2021 Document Reviewed: 12/19/2020 [employer] Patient Education 2022 [employer]. Follow Up Care 12/10/2022 07:57:33 With:[facility] Address:Unknown When:12/13/2022 11:42:52 With:Diamante Cleveland Address: [address] [place] [address], [facility] [address] [place] [phone] Business (1) When:Within 3 Day(s) [facility]10-20-2023 Hospital Discharge instructions Patient Education 11/30/2022 [...] numbers. This can be done either in [place] or metric measurements. Note that charts and online BMI calculators are available to help you find your BMI quickly and easily without having to do these calculations yourself. To calculate your BMI in [place] ([place] measurements: 1.Measure your weight in pounds [...] Centers for Disease Control and Prevention: www.cdc.gov [place] Heart Association: www.heart.org National Heart, Lung, and Blood [place]: www.nhlbi.nih.gov Summary Body mass index (BMI) is a number that is calculated from a person's weight and height. BMI may help estimate how much of a person's weight is composed of fat. BMI can help identify thosewho may be at higher risk for certain medical problems. BMI can be measured using [place] measurements or metric measurements. BMI charts are used to identify whether you are underweight, normal weight, overweight, or obese. This information is not intended to replace advice given to you by your health care provider. Make sure you discuss any questions you have with your health care provider. Document Revised: 10/21/2019 Document Reviewed: 08/28/2019 [employer] Patient Education 2022 [employer]. 11/30/2022 14:00:38 Dysuria Dysuria Dysuria is pain [...] Follow these instructions at home: Medicines Take rncl-zfa-sunxgdk and prescription medicines only as told by [...] provider. Document Revised: 09/09/2020 Document Reviewed: 09/09/2020 [employer] Patient Education 2022 [employer]. 11/30/2022 14:00:37 Safe Sex Safe Sex Practicing [...] STI. Follow these instructions at home: Take lgbf-tjr-byqxvfn and prescription medicines only as told by [...] provider. Document Revised: 07/04/2020 Document Reviewed: 07/04/2020 Elsevier Patient Education 2022 A[employer]ha. Follow Up Care 11/30/2022 13:08:52 With:Diamante Cleveland CNP Address: [address] [place] [address], [address] [place] [id number]- When: Unknown [facility] [id number] Evaluation + Plan note Diagnostic Tests Pending * Chlamydia/Gonococcus, MOISES 11/30/22 * Urine Culture 11/30/22 [facility]10-03-2023 Evaluation + Plan note Diagnostic Tests Pending * Estradiol Level 11/13/22 * Testosterone F&T 11/13/22 * HIV Screen 4th Generation wRfx 11/13/22 * Hepatitis B Surface Antigen 11/13/22 * RPR with Conf Rfx 11/13/22 * FSH Level 11/13/22 * DHEAS 11/13/22 [facility]10-03-2023 Evaluation + Plan note Diagnostic Tests Pending * Thyroid Perox.tpo Ab 11/13/22 [facility]09-24-2023 Hospital Discharge instructions Patient Education 11/04/2022 [...] health careprovider. Avoid caffeine, alcohol, and certain riyv-uqh-wkgdnse cold medicines. These may make you feel worse. Ask your pharmacist which medicines to avoid. General instructions Take fgim-ioj-wokfzgs and prescription medicines only as told by [...] Depression Association of [place] (ADAA): www.adaa.org National [place] on Mental Illness (SHEY): www.shey.org Contact a [...] department or: Call your local emergency services (092 in the U.S.). Call a suicide crisis helpline, such as the National Suicide Prevention Lifeline at or 354 in the U.S. This is open 24 hours a day in the U.S. Text the Crisis Text Line at 700518 (in the U.S.). Summary Taking steps to [...] provider. Document Revised: 08/23/2021 Document Reviewed: 05/21/2021 [employer] Patient Education 2022 [employer]. Follow Up Care 11/04/2022 12:21:25 With:[facility] Address:Unknown When:11/07/2022 15:59:09 With:Diamante Cleveland Address: [address] [place] [address], [address] [place] [phone] [facility] (1) When:11/07/2022 15:58:15 Comments:Make sure to follow-up with your primary doctor for blood pressure check as well to make sure you are not developing hypertension. Follow-up with [facility]. Return to the emergency room if your symptoms recur or any new symptoms. [facility]09-24-2023 Evaluation + Plan noteExtracted from: Title:ED Note Author:Parveen Buckner, Gladys Garrett te:11/04/22 1. Anxiety (F41.9: Anxiety d isorder, unspecified) Orders: hydrOXYzine, 50 mg = 1 mL, Injection, IntraMuscular, Once, Stop date 11/04/22 12:35:00 EDT, STAT, Start date 11/04/22 12:35:00 EDT, 11/04/22 12:35:00 EDT hydrOXYzine, 1-2 cap(s), Oral, QID, PRN as needed for anxiety, # 30 cap(s), Refills(s) 0, Pharmacy: [facility], 158, cm, 11/04/22 12:27:00 EDT, Height/Length Dosing, 74.7, kg, 11/04/22 12:27:00 EDT, Weight Dosing lorazepam, 1 mg = 1 tab(s), Tab, Oral, Once, Stop date 11/04/22 13:36:00 EDT, STAT, Start date 11/04/22 13:36:00 EDT, 11/04/22 13:36:00 EDT Automated Diff Basic Metabolic Panel CBC w/ Auto Diff eGFR [facility]07-18-2023 Hospital Discharge instructions Follow Up Care 08/28/2022 09:06:34 With:Lorie Morocho MD, [facility], [facility] Address: [address] [place], [place] [phone] When: only if needed [facility] 07-08-2023 Evaluation + Plan noteExtracted from: Title:Discharge Note Author:Matthias SINGLETARY, Kam Martinez ate:08/18/22 Discharge To, Anticipated II - Home [...] SALOMÓN Singh Within 2 to 4 weeks [address] [place] [address]- Additional Instructions: Illegal Drug Use Information, Adult Toxic Metabolic Encephalopathy Addendum by Matthias SINGLETARY, Kam Mitchell on August 18, 2022 09:11:10 EDT Patient [...] unspecified) Extracted from: Title:Admission H & P Author:Azra HOGAN DO Date:08/17/22 1. 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 We will continue [...] After 24 Hours Restraint Initiate Non-Violent / Yvo-Swlc-Fmxqwfvitmv Behavior Restraint Monitoring Non-Violent / Non-Self- Destructive Behavior Restraint Progress Note Routine Capillary Glucose POC Salicylate Level Saline Lock Insert Straight Cath Troponin 0 Hr. UA With Cult Reflex XR Chest Single View Future Appointments Appointment Date:10/17/2022 09:20:00 AM Scheduled Provider:Amanda BARRIOS CNP Location:[facility] Appointment Type:[facility]07-08-2023 [facility] CenterComment on above:Result Comment: Electronically Signed By: Matthias SINGLETARY, Kam Medrano\.br\Date and Time Signed: 08/18/22 09:11 [id number] Hospital Discharge instructions Patient Education 08/18/2022 08:40:12 [...] values. ?Lying and crime, such as stealing. Fci or snf. This can affect your ability to find [...] delivery (premature ), or delivering a lifeless infant (stillbirth). ?Slow or abnormal growth ( defects) [...] Substance Abuse and Mental Health Services Administration ([facility]): ?Treatment finder: https://www.eastmoreland hospitala.gov/find-help ?National helpline: 7-970-599-HELP (5478) Contact a health care provider if: You [...] department or: Call your local emergency services (493 in the U.S[place] Call a suicide crisis helpline, such as the National Suicide Prevention Lifeline at or 456 in the U.S. This is open 24 hours a day in the U.S. Text the Crisis Text Line at 485665 (in the U.S.). Summary Illegal drugs are [...] provider. Document Revised: 08/23/2021 Document Reviewed: 05/26/2021 [employer] Patient Education 2022 [employer] 08/18/2022 08:40:02 Toxic Metabolic Encephalopathy Toxic [...] elderly, have dementia, or live in a half-way. Are not getting enough fluids. Have poor [...] Follow these instructions at home: Medicines Take qoag-yua-ougdjuk and prescription medicines only as told by your health care provider. Do not start taking any new medicines, including pgwj-ufw-zadpkal medicines, without first checkingwith your health care [...] provider. Document Revised: 11/15/2020 Document Reviewed: 11/15/2020 [employer] Patient Education 2022 Avantha. Follow Up Care 08/16/2022 23:31:02 With:Anthony SINGLETARY, SALOMÓN Singh Address: [address] [place] [id number]- When:2 to 4 weeks [facility]07-07-2023 NoteFishUniversity of Maryland Rehabilitation & Orthopaedic InstituteComment on above:Result Comment: Electronically Signed By: Matthias SINGLETARY, Kam Medrano\.br\Date and Time Signed: 08/17/22 11:48 [id number] Hospital Discharge instructions Follow Up Care 07/17/2022 11:17:20 With:Amanda BARRIOS CNP Address: [address] [place] [id number]- When:Within 2 Month(s) [facility] 04-30-2023 Discharge summary Author Gautam arteaga [facility] June 10, 2022 7:53am Note Date/Time June 10, 2022 7:5 2am [facility] [address] [place] [address] Discharge Summary Signed Patient: Lyle Bailey MR#: [id number] : 1990 Acct:[id number] Age/Sex: 32 / F Adm Date: 3 Loc: Room: [address] [place] [address]: Nguyễn Burrows MD Copies to: MD Amanda Escamilla APRN, 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~ Providers Date of Discharge: 06/10/22 Discharging Provider: Nguyễn Burrows Primary Care Provider: Amanda Barrios Consults: 06/07/22 17:43 Consult to Case Management Routine Consult to Sleep Lab Routine Discharge Diagnosis (1) Anxiety: (2) Hep C w/o coma, chronic: (3) Depression: Final Diagnosis Final Discharge Diagnosis: MDD Anxiety Summary Hospital Course Hospital course: Ms. Bailey is a 32 year old female with [...] tablet by mouth once daily Follow Up: [facility] Counseling Hotline [Outside] [facility] [Outside] Amanda Barrios APRN, SERVICE SUPERVISOR-C [Primary Care Provider] - (Please schedule an appt with your primary provider for any medical needs. ) Documented By: Gautam Burrows MD [id number] Signed By: <Electronically signed by Gautam Burrows MD> 06/10/22 1976 [facility] Work Phone: 1(529) 170-847004-29-2023 Progress note Author Gautam arteaga [facility] June 09, 2022 7:51am Note Date/Time June 09, 2022 7:5 1am [facility] [address] [place] [address] Psychiatry Progress Note Signed Patient: Lyle Bailey MR#: [id number] : 1990 Acct:[id number] Age/Sex: 32 / F Adm Date: 3 Loc: Room: [address] [place] [address] Type : ADM IN Attending Dr: Nguyễn Burrows MD Copies to: ~ Date of Service: 06/09/2022 Subjective Subjective Narrative: Ms. Bailey patient report she is feeling better. Depression [...] signed by Gautam Burrows MD> 06/09/22 0751 [facility] Work Phone: [phone]) 175-860604-28-2023 History and physical note Author Gautam arteaga [facility] June 08, 2022 9:58am Note Date/Time June 08, 2022 9:5 6am [facility] [address] [place] [address] Psychiatry H&P Signed Patient: Lyle Bailey MR#: [id number] : 1990 Acct:[id number] Age/Sex: 32 / F Adm Date: 3 Loc: Room: [address] [place] [address] Type: ADM IN Attending Dr: Nguyễn Burrows MD Copies to: MD Amanda Escamilla APRN, 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~ Date of Service: 06/08/2022 HPI History of Present Illness History of present illness: Ms. Bailey is a 32 year old female with [...] and has 1 son. Pt recently here uc2Djslv Meds Medications and Allergies Allergies codeine Allergy [...] Appearance Clear Urine pH 5.5 Ur Specific [place] 1.032 H Urine Protein 30 H Urine [...] <Electronically signed by Gautam Burrows MD> 06/08/22 0955 [facility] Work Phone: 1(247) 565-567303-14-2023 Evaluation note* Encounter Date Diagnosis Assessment Notes [...] hepatic coma, unspecified chronicity (ICD-10 - B19.11) [employer] Other 01-31-2023 Hospital Discharge instructions* Discharge Instructions* Leandro Rojas MD - 03/13/2022 1:22 PM EST You were seen in the emergency department for evaluation by [facility]. EKG was normal. Your vitalsigns were [...] going through withdrawal. documented in this encounterBON [employer] Phone: 1(498) 974-631008-09-2022 Hospital Discharge instructions Patient Education 09/19/2021 10:35:36 Steps to Quit Smoking, Yznj-ta-Uvnk Steps to Quit Smoking Smoking tobacco is [...] a prescription, and some you can buy onwq-npo-dnbosdu. Some medicines may contain a drug called [...] and encourage you. Call a phone quitline (7-063-DMWPNOW), reach out to support groups, or work [...] 11/24/2009 Document Revised: 04/17/2019 Document Reviewed: 04/18/2019 [employer] Patient Education 2020 [employer]. 09/19/2021 10:35:35 Obesity, Adult, Vrrt-ea-Hiyg Obesity, Adult Obesity is having too much [...] food choices, such as grocery stores and [employer]. What are the signs or symptoms? The [...] eat. ?How much exercise you get. Take cusb-scq-rsgbkbk and prescription medicines only as told by [...] 04/21/2012 Document Revised: 10/02/2018 Document Reviewed: 10/02/2018 [employer] Patient Education 2019 [employer]. [facility] 06-16-2022 Hospital Discharge instructions Patient Education 07/26/2021 22:07:43 Hepatitis C, Zesj-qg-Bswt Hepatitis C Hepatitis C is a liver infection that is caused by a virus. Many people have no symptoms or only mild symptoms. Hepatitis C is contagious. This means that it can spread from person to person. You canget this disease through: Blood. . Body fluids, like breast milk, tears, semen, vaginal fluids, and spit (saliva). Blood or organ donations done in the [place] before 1991. Follow these instructions at home: Medicines Take rgdc-tgw-qsmmwro and prescription medicines only as told by your doctor. Take your antiviral medicine as told by your doctor. Do not stop taking the antiviral medicine evenif you start to feel better. Do not take any new medicines unless your doctor says that this is okay. This includes jxaz-etj-iinwhry medicines and control pills. Activity Rest when [...] not have soap and water, use hand clinical counselor. Do not share needles or syringes. Practice safe sex and use condoms. Do not handle blood or body fluids without gloves or other protection. Avoid getting tattoos or piercings in places that are not clean. General instructions Do not share toothbrushes, nail clippers, or razors. Wash your hands often with soap and water. If you do not have soap and water, use hand clinical counselor. Cover any cuts or open sores on [...] 01/10/2009 Document Revised: 01/10/2018 Document Reviewed: 03/05/2017 [employer] Patient Education 2020 [employer]. 07/26/2021 22:07:43 Constipation, Adult Constipation, Adult Constipation [...] in fiber, or overly processed, such as georgian fries, hamburgers, cookies, candies, and soda. Drink enough fluid to keep your urine clear or pale yellow. General instructions Exercise regularly or as told by your health care provider. Go to the restroom when you have the urge to go. Do not hold it in. Take yhzw-jhw-uduxnfa and prescription medicines only as told by [...] 10/26/2004 Document Revised: 01/10/2018 Document Reviewed: 07/18/2016 [employer] Patient Education 2020 [employer]. 07/26/2021 22:07:43 Abdominal Pain, Adult Abdominal Pain, [...] Follow these instructions at home: Medicines Take jkil-zqe-kawvsfh and prescription medicines only as told by [...] Watch your condition for any changes. Take gkqh-cox-zlnobml and prescription medicines only as told by [...] 11/07/2005 Document Revised: 06/08/2019 Document Reviewed: 06/08/2019 [employer] Patient Education 2019 [employer]. Follow Up Care 07/26/2021 18:02:56 With:Amanda BARRIOS Address: [address] [place], [place] [phone] Business (1) When:07/29/2021 21:42:35 Comments:Follow-up with your primary care provider in 3 to 5 days. If symptoms worsen, do not improve, new symptoms arise please report back to emergency department immediately. Take MiraLAX daily to help promote a normal bowel movement. [facility]05-24-2022 Hospital Discharge instructions Patient Education 07/04/2021 15:44:46 Steps to Quit Smoking, Vnma-bm-Pmck Steps to Quit Smoking Smoking tobacco is [...] a prescription, and some you can buy mpiq-syy-liaggrc. Some medicines may contain a drug called [...] as websites. Examples include QuitGuide from the [facility] and smokefree.gov What things can I do to make it easier to quit? Talk to your family and friends. Ask them to support and encourage you. Call a phone quitline (9-203-JYJP-NOW), reach out to support groups, or work [...] 11/24/2009 Document Revised: 04/17/2019 Document Reviewed: 04/18/2019 [employer] Patient Education 2020 [employer]. 07/04/2021 15:44:45 Obesity, Adult, Rpsy-ko-Gdpp Obesity, Adult Obesity is having too much [...] food choices, such as grocery stores and [employer]. What are the signs or symptoms? The [...] eat. ?How much exercise you get. Take xljx-gcv-mtnmrkt and prescription medicines only as told by [...] 04/21/2012 Document Revised: 10/02/2018 Document Reviewed: 10/02/2018 [employer] Patient Education 2020 [employer]. Follow Up Care 06/19/2021 13:30:22 With:Amanda BARRIOS CNP Address: [address] [place] [address]- When:Within 6 Month(s) [facility] 12-27-2021 NoteAdmission Information Patient: Lyle Bailey : 1990 Date of Admission: 02/05/2021 16:34:16 Date of Discharge: 02/06/2021 Code Status: Full Resuscitation PCP: Consult: Follow Up with Provider: With: Address: When: [address] [place] [address] 02/14/2021 09:45:00 Comments: Counseling Appointment with Nora [...] signed by Deacon Arnold MD 02/06/21 15:24 [facility]12-26-2021 Note Chief Complaint Alcohol intoxication, wishing to withdraw from alcohol History of Present Illness Ms. Lyle Bailey is a 31-year-old female with past medical [...] the facility. She has never been admitted [facility]. She does live in [place], [place]. At time of evaluation, there is [...] care unit, hardwire monitor, continuous pulse oximetry CIWA protocol with as needed lorazepam, plasma ethanol [...] DTs, seizures Disposition Health Care Power of Trim Installer or next of kin: Manisha Bailey, Family Updated: In ED Activity at baseline: [...] 2 mg= 1 mL, IV Push, q15min, PA (more content not included)... [facility] Gautam arteaga [facility] June 10, 2022 7:53am Note Date/Time June 10, 2022 7:5 2am [facility] [address] [place] [address] Discharge Summary Signed Patient: Lyle Bailey MR#: [id number] : 1990 Acct:[id number] Age/Sex: 32 / F Adm Date: 3 Loc: Room: [address] [place] [address]: Nguyễn Burrows MD Copies to: MD Amanda Escamilla APRN, 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~ Providers Date of Discharge: 06/10/22 Discharging Provider: Nguyễn Burrows Primary Care Provider: Amanda Barrios Consults: 06/07/22 17:43 Consult to Case Management Routine Consult to Sleep Lab Routine Discharge Diagnosis (1) Anxiety: (2) Hep C w/o coma, chronic: (3) Depression: Final Diagnosis Final Discharge Diagnosis: MDD Anxiety Summary Hospital Course Hospital course: Ms. Bailey is a 32 year old female with [...] tablet by mouth once daily Follow Up: [facility] [Outside] [facility] [Outside] Amanda Barrios APRN, SERVICE SUPERVISOR-C [Primary Care Provider] - (Please schedule an appt with your primary provider for any medical needs. ) Documented By: Gautam Burrows MD [id number] Signed By: <Electronically signed by Gautam Burrows MD> 06/10/22 0624 [facility] Work Phone: Evaluation + Plan note Future Appointments Appointment Date:12/27/2021 03:00:00 PM Scheduled Provider:Amanda BARRIOS CNP Location:[facility] Appointment Type:[facility] Evaluation + Plan note Future Appointments Appointment Date:12/27/2021 03:00:00 PM Scheduled Provider:Amanda BARRIOS CNP Location:[facility] Appointment Type: Open Diagnostic Tests Pending * CBC w/ Auto Diff 07/04/21 * TSH With T4fr Reflex [facility]ments Appointment Date:04/26/2022 01:40:00 PM Scheduled Provider:Amanda BARRIOS CNP Location:[facility] Appointment Type:[facility] Evaluation + Plan note Future Appointments Appointment Date:10/17/2022 09:20:00 AM Scheduled Provider:Amanda BARRIOS CNP Location:[facility] Appointment Type:[facility] Evaluation + Plan note Future Appointments Appointment Date:10/17/2022 09:20:00 AM Scheduled Provider:Amanda BARRIOS CNP Location:[facility] Appointment Type: Open Diagnostic Tests Pending * Throat Culture [facility]28/22 [facility] App[facility]ments Appointment Date:06/20/2023 01:20:00 PM Scheduled Provider:Amanda BARRIOS CNP Location:[facility] Appointment Type: ER/Hospital Follow Up [facility] Evaluation + Plan note Future Appointments Appointment Date:06/20/2023 01:20:00 PM Scheduled Provider:Amanda BARRIOS CNP Location:[facility] Appointment Type: ER/Hospital Follow Up Diagnostic Tests Pending * Chlam/GC/Trich,MOISES 06/17/23 * Vaginitis/Vaginosis, DNA Probe 06/17/23 * Urine Culture [facility]17[facility]23 [facility] App[facility]ments Appointment Date:08/21/2023 08:20:00 AM Scheduled Provider:Amanda BARRIOS CNP Location:[facility] Appointment Type: Open [facility] Diagnosis Alcohol withdrawal syndrome with complication (HCC)- Primary documented in this encounter [employer] Phone: evaluation note* Diagnosis Temporary high blood pressure- Primary Elevated blood pressure reading without diagnosis of hypertension documented in this encounter [employer] Phone: evaluation noteNo assessment information available [facility] Work Phone: evaluation note* Diagnosis Acute alcoholic intoxication with complication (HCC)- Primary documented in this encounter [employer] Phone: evaljumbaj note* Diagnosis Encounter for psychological evaluation- Primary documented in this encounter [employer] Phone: evaluation note* Diagnosis Onset Date Resolution Status Alcohol abuse acute Altered mental status acute Suicidal ideation acute [facility] Work Phone: evaluation note* Diagnosis Onset Date Resolution Status Alcohol abuse acute Altered mental status acute Anxiety acute Depression acute Hep C w/o coma, chronic acut e Suicidal ideation acute [facility] Work Phone: Evaluation note* Diagnosis Alcohol withdrawal syndrome with complication (CMS/HCC)- Primary Bipolar affective disorder, currently manic, moderate (CMS/HCC) Bipolar I disorder, most recent episode (or current) manic, moderate documented in this encounter [facility] Work Phone: Evaluation note* Diagnosis Onset Date Resolution Status Acute psychosis acute [facility] Work Phone: History and physical note Author Gautam arteaga [facility] June 08, 2022 9:58am Note Date/Time June 08, 2022 9:5 6am [facility] [address] [place] [address] Psychiatry H&P Signed Patient: Lyle Bailey MR#: [id number] : 1990 Acct:[id number] Age/Sex: 32 / F Adm Date: 3 Loc: Room: [address] [place] [address] Type: ADM IN Attending Dr: Nguyễn Burrows MD Copies to: MD Amanda Escamilla APRN, CNP~ Date of Service: 06/08/2022 HPI History of Present Illness History of present illness: Ms. Bailey is a 32 year old female with [...] and has 1 son. Pt recently here [id number] Meds Medications and Allergies Allergies codeine Allergy [...] Appearance Clear Urine pH 5.5 Ur Specific [place] 1.032 H Urine Protein 30 H Urine [...] signed by Gautam Burrows MD> 06/08/22 0958 [facility] Work Phone: History general Narrative - Reported* Type Description Date Medical History HX OF HEROIN ABUSE Medical History manic depression Medical History bipolar Medical History anxiety Surgical History No know Surgical history Hospitalization History CHILD X'S 1 [employer] Other Hospital course Narrative No data available for this section [facility] Discharge instructions* Instructions* Fredy Kay, DO - 05/03/2021 Call today or tomorrow for a follow up with [facility] for alcohol detoxification or follow up with No primary care provider on file.. Stop drinking alcohol. Call [facility] [phone] or go to [facility] at 7am [...] Care Everywhere. * Alcohol Detoxification and Withdrawal ([place]) documented in this [facility] Work Phone: Hospital Discharge instructions No data available for this section [facility] Additional Instructions Follow-up with outpatient detox [facility] if [facility] are [facility] Work Phone: Hospital Discharge instructions Additional Instructions Follow-up with mental health Return to the ED if you develop worsening symptoms or concernsJoint [facility] Work Phone: Hospital Discharge instructions* Attachments The following attachments cannot be sent through Care Everywhere. * Alcohol Intoxication: Acute ([place]) [facility] Discharge instructions Additional Instructions Follow-up with your primary care doctor Return to ED if develop worsening [facility]: Hospital Discharge instructions Additional Instructions Do not use drugs or [facility]Pro[facility] Work Phone: Hospital Discharge instructions Additional Instructions If your symptoms return/worsen or you develop any further concerns or symptoms please see your doctor or return to the emergency department immediately.[facility] Work Phone: Hospital Discharge instructions Additional Instructions Regular Diet No Activity RestrictionsJoint [facility] District [facility] Work Phone: Hospital Discharge instructions Additional Instructions Follow-up with your primary care doctor Return to ED for develop worsening symptoms or [facility]Joint [facility] Work Phone: Hospital Discharge instructions Additional Instructions Patient is medically stable for detox at this time. Please go directly to detox. Please follow close with your primary care doctor. Please return to the emergency department if you develop any worsening or concerning symptoms. Please use the nausea medicine as needed. [facility] Work Phone: Progress note No data available for this section [facility] Author Gautam arteaga [facility] June 09, 2022 7:51am Note Date/Time June 09, 2022 7:5 1am [facility] [address] [place] [address] Psychiatry Progress Note Signed Patient: Lyle Bailey MR#: [id number] : 1990 Acct:[id number] Age/Sex: 32 / F Adm Date: 3 Loc: 1S Room: 0J3025-2 Type : ADM IN Attending Dr: Nguyễn Burrows MD Copies to: ~ Date of Service: 06/09/2022 Subjective Subjective Narrative: Ms. Bailey patient report she is feeling better. Depression [...] signed by Gautam Burrows MD> 06/09/22 0751 [facility] Work Phone: Reason for referral (narrative) Referred by: [facility] [place] Family History No Family History Records Found Grandmother Name Dates Details Family history of [...] family member Depression Unknown father Depression Unknown Relationship Condition Age at Onset Recorded Date/T kenia Not Specified Depression Unknown family member Depression Unknown father Depression Unknown father Unknown Hypertension Unknown Relationship Condition Age at Onset Recorded Date/T kenia mother Depression Unknown family member Depression Unknown father Depression Unknown father Unknown Hypertension Unknown Advance Directives No Advanced Directives Records FoundDocuments on File Type Date Recorded Patient Dental Tech Expl anation Advance Directives and Living Will Power of Trim Installer Documents on File Type Date Recorded Patient Dental Tech Expl anation ACP-Advance Directive ACP-Power of Trim Installer Advance Directive Response Recorded Date/ Time Advance Directives No December 10:11am Advance Directive Response Recorded Date/ Time Advance Directives No December 11:11am Discharge Instructions * Instructions* Mundo Guzman MD - 11/01/2018 Venous Doppler is scheduled for Saturday. Go to scheduled appointment. Take Xarelto as prescribed. * Attachments The following attachments cannot be sent through Care Everywhere. * DVT (Deep Vein Thrombosis) ([place]) documented in this encounter* Attachments The following attachments cannot be sent through Care Everywhere. * Panic Attacks ([place]) documented in this encounter* Instructions* Crescencio Emanuel MD - 03/11/2020 MEDICATIONS PRESCRIBED. RETURN FOR NEW OR WORSENING SYMPTOMS, THOUGHTS OR WANTING TO HURT SELF/ OTHERS. * Attachments The following attachments cannot be sent through Care Everywhere. * Anxiety Disorder ([place]) documented in this encounter* Attachments The following attachments cannot be sent through Care Everywhere. * Anxiety Disorder ([place]) documented in this encounter Assessments Diagnosis Pain [...] racing/ throat swollen cp- out of meds Chief Complaint BH need meds refill alcohol withdrawal heart racing/ throat swollen cp- out of meds palpitations Chief Complaint BH need meds refill alcohol withdrawal heart racing/ throat swollen cp- out of meds palpitations PERSONAL Chief Complaint need meds refill alcohol withdrawal heart racing/ throat swollen cp- out of meds palpitations PERSONAL alcohol withdrawal Chief Complaint cp- out of meds palpitations PERSONAL alcohol withdrawal abd pain Vomiting Chief Complaint BH [place]. Brief Psychotic Disorder [place]. Brief Psychotic Disorder Reason for Visit Acute psychosis Additional Source Comments INFORMATION SOURCE (unrecogn ized section and content) DATE CREATED AUTHOR 07/04/2018 [facility] DATE CREATED AUTHOR AUTHOR'S ORGANIZ ATION 11/14/2018 [facility] DATE CREATED AUTHOR AUTHOR'S ORGANIZ ATION 03/12/2020 [facility] DATE CREATED AUTHOR AUTHOR'S ORGANIZ ATION 06/04/2020 [employer] DATE CREATED AUTHOR AUTHOR'S ORGANIZ ATION 09/28/2020 [facility] DATE CREATED AUTHOR AUTHOR'S ORGANIZ ATION 10/12/2020 [facility] DATE CREATED AUTHOR AUTHOR'S ORGANIZ ATION 10/19/2020 [facility] DATE CREATED AUTHOR AUTHOR'S ORGANIZ ATION 02/09/2021 [facility] DATE CREATED AUTHOR AUTHOR'S ORGANIZ ATION 05/04/2021 [facility] DATE CREATED AUTHOR AUTHOR'S ORGANIZ ATION 05/04/2021 [facility] DATE CREATED AUTHOR AUTHOR'S ORGANIZ ATION 06/02/2021 [facility] DATE CREATED AUTHOR AUTHOR'S ORGANIZ ATION 07/31/2021 [facility] DATE CREATED AUTHOR AUTHOR'S ORGANIZ ATION 03/13/2022 [facility] DATE CREATED AUTHOR AUTHOR'S ORGANIZ ATION 03/15/2022 [facility] DATE CREATED AUTHOR AUTHOR'S ORGANIZ ATION 01/17/[address] [facility] DATE CREATED AUTHOR AUTHOR'S ORGANIZ ATION 07/02/2023 [facility] DATE CREATED AUTHOR AUTHOR'S ORGANIZ ATION 07/05/2023 [facility] DATE CREATED AUTHOR AUTHOR'S ORGANIZ ATION 07/07/2023 [facility] DATE CREATED AUTHOR AUTHOR'S ORGANIZ ATION 07/15/2023 [facility] DATE CREATED AUTHOR AUTHOR'S ORGANIZ ATION 07/18/2023 [facility] DATE CREATED AUTHOR AUTHOR'S ORGANIZ ATION 08/07/2023 [facility] DATE CREATED AUTHOR AUTHOR'S ORGANIZ ATION 08/08/2023 [facility] DATE CREATED AUTHOR AUTHOR'S ORGANIZ ATION 08/14/2023 [facility] DATE CREATED AUTHOR AUTHOR'S ORGANIZ ATION 08/15/2023 [facility] Reason for Visit (unrecogniz ed section and [...] Referre d By Contact Referred To Contact [facility] Emergency Dept [address] [place] [address] [facility] Reason Comments Anxiety Pt states that she's been drinking continuously for the past 3 weeks, states anxiety/panic attacks today; Has a hx of IV drug abuse as well; Reason Comments Withdrawal Alcohol Reason Comments Hypertension at [facility]. blood pressure checked today and was 146/100 Reason Comments Addiction Problem Reason Comments Panic Attack Reason Comments Psychiatric Evaluation Pt is from [facility] and is going through alcohol withdrawal, pt [...] IntraMUSCular, ONCE, 1 dose, On Sat05/03/21 at 7384 7213 (Given - Provid er: Macrina Cerda RN) LORazepam (ATIVAN) injection 1 mg (COMPLETED) 1 mg, IntraVENous, ONCE, 1 dose, On Sat05/02/21 at 2315 2317 (Given - Provider: Macrina Cerda RN) LORazepam [...] - Provid er: Michelle Godoy - Comment: [id number] 10/04) No Frequency Medication Order 05/01/2021 05/02/2021 [...] 2207 (Given - Provider: Katy Chatterjee RN) 2121 (Given - Provider: Moni Montoya RN) fluconazole [...] Calhoun RN)1425 (Given - Provider: Franchesca Calhoun RN)2121 (Given - Provider: Moni Montoya RN) haloperidol lactate (Haldol) injection 5 mg (COMPLETED) [...] at 0900, RN must sign for and cigar packer and picker medication at Pharmacy window. Please call before [...] (See Alternative - Provider: Jacob Ruano RN) 004 (See Alternative - Provider: Jacob Ruano RN)041 (See Alternative - Provider: Eleonora Jaquez RN)0615 (See Alternative - Provider: Jacob Ruano RN) LORazepam (Ativan) injection 1 mg(Linked Group 1) 1 mg, intravenous, Administer over 5 Minutes, Every 2 hour PRN, CIWA score 8-9, Starting on Sat12/14/22 at 2137, Maximum rate of 2 mg/min. 2208 (Given - Provider: Jacob Ruano RN - Comment: CIGILBERT 8) 39 (See Alternative - Provider: Jacob Ruano RN)041 (See Alternative - Provider: Eleonora Jaquez RN)0615 (See Alternative - Provider: Jacob Ruano RN) LORazepam (Ativan) injection 2 mg(Linked Group 1) 2 mg, intravenous, Administer over 5 Minutes, Every 2 hour PRN, CIWA score greater than 9, Starting on Sat12/14/22 at 2137, Maximum rate of 2 mg/min. 2208 (See Alternative - Provider: Jacob Ruano RN) 004 (Given - Provider: Jacob Ruano RN - Comment: CIWA 21)041 (Given - Provider: Eleonora Jaquez RN)0615 (Given - Provider: Jacob Ruano RN - Comment: CIWA 13) melatonin tablet 3 mg 3 mg, oral, Nightly PRN, sleep, Starting on 12/15/22 at 2237 2300 (Given - Provider: Bharati Barba, RN) No Frequency Medication Order 12/14/2022 12/15/2022 12/16/2022 nicotine (Nicoderm CQ) patch - Omnicell Override Pull (COMPLETED) Starting on 12/16/22 at 0711, For 1 dose, Created by cabinet override 0715 (Medication Afia lied - Provider: Franchesca Calhoun, RN) Linked Groups Order Group 1: LORazepam [...] (unrecognized sect ion and content) Team Status: Active Member Role Status Dates Amanda Barrios APRN SERVICE SUPERVISOR-C Primary Care Provider Active Team Status: Active Member Role Status Dates Diam[place] Primary Care Provider Active Star t: July 05, 2023 Gautam Burrows MD Attending Provider Active Start: July 05, 2023 Team Status: Inactive Member Role Status Dates Amanda Barrios APRN SERVICE SUPERVISOR-C Primary Care Provider Active Start: August 06, 2023 End: August 10, 2023 Piyush Pace MD Admit Provider, [place] Provider Active Start: August 06, 2023 End: August 10, 2023 Team Status: Active Member Role Status Dates Amanda Barrios APRN SERVICE SUPERVISOR-C Primary Care Provider Active Start: August 07, 2023 Piyush Pace MD Admit Provider, Atte nding Provider, Other Provider Active Start: August 07, 2023 Team Status: Inactive Member Role Status Dates Diamante [place] Primary Care Provider Active Star t: January 08, 2023 End: January 08, 2023 Braeden Schmitt PA-C Emergency Provider Active Start: January 08, 2023 End: January 08, 2023 Team Status: Inactive Member Role Status Dates Amanda Barrios APRN SERVICE SUPERVISOR-C Primary Care Provider Active Start: January 19, 2023 End: January 19, 2023 Pavel Yao DO Emergency Provider Active Start: January 19, 2023 End: January 19, 2023 Team Status: Inactive Member Role Status Dates Amanda Barrios APRN SERVICE SUPERVISOR-C Primary Care Provider Active Start: January 25, 2023 End: January 25, 2023 Samanta Castro Jr, MD Emergency Provider Active Start: January 25, 2023 End: January 25, 2023 Team Status: Inactive Member Role Status Dates Amanda Barrios APRN SERVICE SUPERVISOR-C Primary Care Provider Active Start: March 04, 2023 End: March 04, 2023 Azra Farmer DO Emergency Provider Active St art: March 04, 2023 End: March 04, 2023 Team Status: Inactive Member Role Status Dates Amanda Barrios APRN SERVICE SUPERVISOR-C Primary Care Provider Active Start: March 12, 2023 End: March 12, 2023 Azra Farmer DO Emergency Provider Active St art: March 12, 2023 End: March 12, 2023 Team Status: Inactive Member Role Status Dates Amanda Barrios APRN SERVICE SUPERVISOR-C Primary Care Provider Active Start: March 17, 2023 End: March 17, 2023 Delvis Benz DO Emergency Provider Active Sta rt: March 17, 2023 End: March 17, 2023 Team Status: Inactive Member Role Status Dates Amanda Barrios APRN SERVICE SUPERVISOR-C Primary Care Provider Active Start: April 06, 2023 End: April 06, 2023 Declan Marina MD Emergency Provider Active St art: April 06, 2023 End: April 06, 2023 Team Status: Active Member Role Status Dates Diamante [place] Primary Care Provider Active Star t: 2023 Gautam Burrows MD Attending Provider Active Start: 2023 Team Status: Inactive Member Role Status Dates Amanda Barrios , HOUSING MANAGEMENT REPRESENTATIVE SERVICE SUPERVISOR-C Primary Care Provider Active Azra Farmer , DO Emergency Provider Active Team Status: Inactive Member Role Status Dates Amanda Barrios APRN SERVICE SUPERVISOR-C Primary Care Provider Active Declan Marina MD Emergency Provider Active Team Status: Inactive Member Role Status Dates Amanda Barrios APRN SERVICE SUPERVISOR-C Primary Care Provider Active Ari Aguero , DO Emergency Provider Active Team Status: Inactive Member Role Status Dates Ari Aguero , DO Emergency Provider Active Amanda Barrios , HOUSING MANAGEMENT REPRESENTATIVE SERVICE SUPERVISOR-C Primary Care Provider Active Team Status: Inactive Member Role Status Dates Amanda Barrios APRN SERVICE SUPERVISOR-C Primary Care Provider Active Eric Dooley MD Emergency Provider Active Team Status: Inactive Member Role Status Amanda Barrios APRN SERVICE SUPERVISOR-C Primary Care Provider Active Braeden Schmitt PA-C Emergency Provider Active Team Status: Inactive Member Role Status Amanda Barrios APRN SERVICE SUPERVISOR-C Primary Care Provider Active Ari Aguero DO Emergency Provider Active Joann Bojorquez DO RES Active Team Status: Inactive Member Role Status Amanda Barrios APRN SERVICE SUPERVISOR-C Primary Care Provider Active Pavel Yao , DO Emergency Provider Active Team Status: Inactive Member Role Status Dates Amanda Barrios APRN SERVICE SUPERVISOR-C Primary Care Provider Active Kanchan Sanchez MD Attending Provider Active Team Status: Active Member Role Status Amanda Barrios APRN SERVICE SUPERVISOR-C Primary Care Provider Active Ari Aguero DO Emergency Provider Active Nguyễn Burrows MD Admit Provider, Attending Pr ovider Active Team Status: Inactive Member Role Status Amanda Barrios APRN SERVICE SUPERVISOR-C Primary Care Provider Active Ari Aguero DO Emergency Provider Active Nguyễn Burrows MD Admit Provider, Attending Pr ovider Active [employer] Relationship Specialty Start Date End Date Nini Mccollum, HOUSING MANAGEMENT REPRESENTATIVE-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 [address] [facility] [place] [place] [address] PCP - General 01/14/19 Team Status: Active Member Role Status Dates Diamante [place] Primary Care Provider Active Team Status: Inactive Member Role Status Dates Diamante [place] Primary Care Provider Active Braeden J Schmitt , PA-C Emergency Provider Active Team Status: Inactive Member Role Status Dates Amanda Barrios APRN SERVICE SUPERVISOR-C Primary Care Provider Active Samanta Castro Jr, MD Emergency Provider Active Team Status: Inactive Member Role Status Dates Ari Aguero DO Emergency Provider Active Sta rt: December 11, 2022 End: December 11, 2022 Amanda Barrios APRN SERVICE SUPERVISOR-C Primary Care Provider Active Start: December 11, 2022 End: December 11, 2022 Team Status: Inactive Member Role Status Dates Amanda Barrios APRN SERVICE SUPERVISOR-C Primary Care Provider Active Start: April 08, 2023 End: April 08, 2023 Eric Dooley MD Emergency Provider Active Star t: April 08, 2023 End: April 08, 2023 Team Status: Inactive Member Role Status Dates Amanda Barrios APRN SERVICE SUPERVISOR-C Primary Care Provider Active Start: April 25, 2023 End: April 25, 2023 Diane Paez DO Emergency Provider Active Start: April 25, 2023 End: April 25, 2023 Goals (unrecognized section and content) Goals [...] BE BASED ON THE PRIMARY CLINICAL RECORDS. [employer] provides no warranty or guarantee of the accuracy or completeness of information in this document.
--- NOTE | 2023-08-30 18:35 | XR_ITS ---
[address] [address] Patient Name: LYLE BAILEY MRN: [id number] date: 1990 Sex: F Assigned Patient Location: ER Current Patient Location: ER Accession/Order Number: [id number] Exam Date: 08/30/2023 19:12 Report Date: 08/30/2023 21:19 At the request of: DEIRDRE ESCOBAR Procedure: XR chest 1V EXAMINATION: XR chest 1V, , 08/30/2023 7:12 PM EDT INDICATION: confusion HISTORY: Ordering Provider Reason for Exam: confusion Technologist Note: Additional: COMPARISON: None. TECHNIQUE: Chest x-ray: One view. FINDINGS: No pneumothorax, pleural effusion or focal airspace consolidation. Heart is normal in size. Bony thorax is unremarkable. XR/XR chest 1V IMPRESSION: No acute cardiopulmonary process. Electronically authenticated by: BERNY ZARATE Date: 08/30/2023 21:19
--- NOTE | 2023-08-30 18:35 | CT_ITS ---
[address] [address] Patient Name: LYLE BAILEY MRN: [id number] date: 1990 Sex: F Assigned Patient Location: ER Current Patient Location: .[facility] Accession/Order Number: [id number] Exam Date: 08/30/2023 19:12 Report Date: 08/30/2023 20:56 At the request of: DEIRDRE ESCOBAR Procedure: CT head/brain wo con EXAM: CT head/brain wo con HISTORY: Confusion. TECHNIQUE: Axial CT scans through the head were obtained without IV contrast administration. Dose reduction techniques were achieved by using: automated exposure control and/or adjustment of mA and /or kV according to patient size and/or the use of an iterative reconstruction technique. COMPARISON: None. FINDINGS: Some motion artifact is present. No obvious intracranial hemorrhage or obvious cerebral edema. No abnormal mass effect. The ventricular system is normal for the patient's age. The visualized orbits show no abnormal mass. The visualized paranasal sinuses show no air-fluid level. Mastoid air cells are clear. CT/CT head/brain wo con IMPRESSION: Some motion artifact is present. No obvious intracranial hemorrhage or obvious cerebral edema. No abnormal mass effect. The ventricular system is normal for the patient's age. Electronically authenticated by: MARQUIS RIVAS Date: 08/30/2023 20:56
--- NOTE | 2023-08-30 18:35 | ECG_ITS ---
[facility] Test Date: 2023-08-30 Pat Name: LYLE BAILEY Department: Room: - Gender: Female [place]: : 1990 Requested By: [id number] Order Number: [id number] Reading MD: DIEGO BEYER Measurements Intervals [place] Rate: 81 P: 65 MA: 176 QRS: 99 QRSD: 84 T: 34 QT: 386 QTc: 424 Interpretive Statements 1100 Sinus rhythm 7102 Moderate right axis deviation 9110 normal ECG Compared to ECG 03/05/2023 03:47:14 Right-axis deviation now present Electronically Signed On 09-02-2023 7:31:28 EDT by DIEGO BEYER
--- NOTE | 2023-08-30 18:39 | ED.GENADUL1 ---
HPI HPI - General Adult General Chief complaint: Altered Mental Status Stated complaint: withdrawals Time Seen by Provider: 08/30/23 18:25 Source: patient Mode of arrival: walk-in Limitations: no limitations History of Present Illness HPI narrative: Patient is a 33-year-old female who is presenting to the ER with chief complaint change in mental status, altered, confused, possible alcohol withdrawal and concerns per sister. Patient lives at home with her mother. Patient is alcoholic, patient drinks approximately a half gallon of vodka a day with beer. Patient is altered, but the history is very unclear. Patient denies any type of headache. Patient has no chest pain or shortness of breath, no nausea or vomiting. Pt sister states she does meth as well, uncertain what drugs maybe in the patients system. no head injury. pt has had seizure from withdrawals before. pt has had alcohol withdrawal before as well. Sister doesnt not know why pt behavior is bizare. pt is not suicidal or homicial. no self harm All systems are negative except as noted/marked. All systems reviewed and otherwise negative. Nurses note and vital signs reviewed and patient is not hypoxic. General: The patient appears odd behavior. Pt slightly agitated. Patient is resting uncomfortably on cart. Patient is not toxic, lethargic, or listless Skin: Warm, dry, no pallor noted. There is no rash noted. No petechiae, purpura. no signs of self harm Head: Normocephalic, atraumatic Eye: Normal conjunctiva, no drainage, EOMI. PERRL. Pupils 3/2, equal bilateral Ears, Nose, Mouth, and Throat: oral mucosa is moist. Nares patent. Mouth without vesicles. Cardiovascular: Regular Rate and Rhythm, no murmur, gallop, rub Respiratory: Patient is in no distress, no accessory muscle use, lungs are clear to auscultation, no wheezing, rales or rhonchi Back: non-tender, no CVA tenderness bilaterally to percussion. No CT LS midline pain GI: no tenderness to palpation, no masses appreciated. No rebound, guarding, or rigidity noted. No distention Musculoskeletal: Patient has full range of motion of all of the extremities, no motor, sensory, or focal neurological deficits Neurological: A&O x4, soft speech, not slurred. Psychiatric: Cooperative, pt not smell of alcohol. not suicidal Related Data Home Medications ?Medication ?Instructions ?Recorded ?Confirmed clonidine HCl 0.1 mg tablet mg 03/05/23 gabapentin 800 mg tablet mg 03/05/23 propranolol 40 mg tablet mg 03/05/23 Allergies Allergy/AdvReac Type Severity Reaction Status Date / Time codeine Allergy Severe Verified 01/16/23 18:22 hydroxyzine [From Vistaril] AdvReac Severe Verified 01/16/23 18:22 Opioid HPI Opioid Management Most Recent Opioid Data: Ur Phencyclidine Scrn Negative (NEGATIVE) 08/30/23 19:53 PFSH PFSH Social History Smoking status: Current every day smoker Exam Constitutional Vital Signs, click to edit/add: Last Vital Signs Temp 97.6 F 08/30/23 18:31 Pulse 83 08/30/23 19:32 Resp 21 H 08/30/23 19:32 BP 133/96 H 08/30/23 19:32 Pulse Ox 98 08/30/23 18:31 O2 Del Method Room Air 08/30/23 18:31 Course Vital Signs Vital signs: Vital Signs Pulse Oximetry 98 08/30/23 18:13 Temperature 97.6 F 08/30/23 18:31 Pulse Rate 83 08/30/23 19:32 Respiratory Rate 21 H 08/30/23 19:32 Blood Pressure 133/96 H 08/30/23 19:32 Pulse Oximetry 98 08/30/23 18:31 Oxygen Delivery Method Room Air 08/30/23 18:31 Medical Decision Making [facility] Narrative Medical decision making narrative: [address] Aggarwal to review labs, imaging, and final disposition. Pt given 1mg ativan IV due to agitation and not remaining in pt room or her bed. Pt was given MagOX 800mg as well. Lab Data Lab results reviewed: Yes I reviewed the patient's lab results Labs: Lab Results 08/30/23 08/30/23 08/30/23 Range/Units 18:28 18:35 19:53 WBC 5.4 (4.0-11.0) 10^3/uL RBC 3.41 L (4.20-5.40) 10^6/uL Hgb 11.8 L (12.0-16.0) g/dL Hct 35.1 L (36.0-48.0) % MCV 102.9 H (81.0-99.0) fL MCH 34.6 H (26.7-34.0) pg MCHC 33.6 (29.9-35.2) g/dL RDW 13.0 (11.0-15.0) % Plt Count 147 L (150-450) 10^3/uL MPV 10.5 (9.5-13.5) fL Neut % (Auto) 47.5 (43.0-75.0) % Lymph % (Auto) 38.5 (20.5-60.0) % [place] % (Auto) 11.9 (1.7-12.0) % Eos % (Auto) 1.3 (0.9-7.0) % Baso % (Auto) 0.4 (0.2-2.0) % Neut # (Auto) 2.6 (1.4-6.5) 10^3/uL Lymph # (Auto) 2.1 (1.2-3.8) 10^3/uL [place] # (Auto) 0.6 (0.3-0.8) 10^3/uL Eos # (Auto) 0.1 (0.0-0.7) 10^3/uL Baso # (Auto) 0.0 (0.0-0.1) 10^3/uL Abs Immat Gran (auto) 0.02 (0.00-0.03) 10^3/uL Imm/Tot Granulo (auto) 0.4 (0.0-0.5) % PT 12.0 H (9.0-11.6) sec INR 1.15 Sodium 140 (136-145) mmol/L Potassium 3.7 (3.5-5.1) mmol/L Chloride 104 (98-107) mmol/L Carbon Dioxide 26.8 (21.0-32.0) mmol/L Anion Gap 12.9 BUN 6.0 L (7.0-18.0) mg/dL Creatinine 0.84 (0.55-1.02) mg/dL Est GFR ( Amer) >60 (>=60) Est GFR (Non-Af Amer) >60 (>=60) BUN/Creatinine Ratio 7.1 Glucose 84 (74-106) mg/dL Calcium 9.1 (8.5-10.1) mg/dL Magnesium 1.6 L (1.8-2.4) mg/dL Total Bilirubin 1.3 H (0.2-1.0) mg/dL AST 119 H (15-37) U/L ALT 83 H (14-59) U/L Alkaline Phosphatase 126 H (46-116) U/L Troponin I High Sens 4.0 (4.0-51.3) pg/mL Total Protein 7.7 (6.4-8.2) g/dL Albumin 3.3 L (3.4-5.0) g/dL Globulin 4.4 g/dL Albumin/Globulin Ratio 0.8 Lipase 28.0 (16.0-77.0) U/L Urine Color Yellow (YELLOW) Urine Clarity Clear (CLEAR) Urine pH 6.0 (5.0-9.0) Ur Specific [place] 1.020 (1.005-1.025) Urine Protein Negative (NEG/TRACE) mg/dL Urine Glucose (UA) Negative (NEGATIVE) mg/dL Urine Ketones Negative (NEGATIVE) mg/dL Urine Occult Blood Negative (NEGATIVE) Urine Nitrite Negative (NEGATIVE) Urine Bilirubin Negative (NEGATIVE) Urine Urobilinogen 4.0 A (0.2-1.0) EU/dL Ur Leukocyte Esterase Negative (NEGATIVE) Salicylates <2.8 (<=19.9) mg/dL Urine Opiates Screen Negative (NEGATIVE) Ur Buprenorphine Scrn Negative (NEGATIVE) Ur Oxycodone Screen Negative (NEGATIVE) Urine Methadone Screen Positive A (NEGATIVE) Acetaminophen <2.0 L (10.0-30.0) ug/mL Ur Barbiturates Screen Negative (NEGATIVE) U Tricyclic Antidepress Negative (NEGATIVE) Ur Phencyclidine Scrn Negative (NEGATIVE) Ur Amphetamines Screen Positive A (NEGATIVE) U Methamphetamines Scrn Negative (NEGATIVE) U Benzodiazepines Scrn Positive A (NEGATIVE) Urine Cocaine Screen Negative (NEGATIVE) U Cannabinoids Screen Negative (NEGATIVE) Ethanol Quant <3 mg/dL POC Glucose 102 (74-106) mg/dL Minutes of alcoholic hepatitis, magnesium levels 1.6 ECG Data Attestation: I personally reviewed and interpreted this ECG as follows: (EKG interpretation. Normal sinus rhythm at 81 beats a minute. Normal axis deviation. No acute ST elevation, no acute ectopy. QTc of 424. ) Discharge Plan Discharge Patient Disposition: Still a Patient
[2023-08-30 18:46] LABS: Basophils Percent Auto 0.4 % (0.2-2.0); Eosinophils Absolute Auto 0.1 10^3/uL (0.0-0.7); Eosinophils Percent Auto 1.3 % (0.9-7.0); Hematocrit 35.1 % (36.0-48.0); Hemoglobin 11.8 g/dL (12.0-16.0); Immature Granulocytes Abs Auto 0.02 10^3/uL (0.00-0.03); Immature Granulocytes Pct Auto 0.4 % (0.0-0.5); Lymphocytes Absolute Auto 2.1 10^3/uL (1.2-3.8); Lymphocytes Percent Auto 38.5 % (20.5-60.0); Mean Corpuscular HGB Conc 33.6 g/dL (29.9-35.2); Mean Corpuscular Hemoglobin 34.6 pg (26.7-34.0); Mean Corpuscular Volume 102.9 fL (81.0-99.0); Mean Platelet Volume 10.5 fL (9.5-13.5); Monocytes Absolute Auto 0.6 10^3/uL (0.3-0.8); Monocytes Percent Auto 11.9 % (1.7-12.0); Neutrophils Absolute Auto 2.6 10^3/uL (1.4-6.5); Neutrophils Percent Auto 47.5 % (43.0-75.0); Platelet Count 147 10^3/uL (150-450); Red Blood Count 3.41 10^6/uL (4.20-5.40); White Blood Count 5.4 10^3/uL (4.0-11.0)
[2023-08-30] MEDS: 0.9 % SODIUM CHLORIDE 1,000 ML 100 ML IV (18:47)
[2023-08-30] MEDS: NALOXONE HCL 2 MG/2 ML SYRINGE 1 MG IV (18:47)
[2023-08-30] MEDS: ONDANSETRON PF 4 MG/2 ML VIAL IV (18:48)
[2023-08-30] MEDS: MULTIVITAMIN TABLET 1 TAB PO (18:52)
[2023-08-30] MEDS: THIAMINE MONONITRATE (VIT B1) 100 MG TABLET PO (18:52)
[2023-08-30 18:55] LABS: Glucometer 102 mg/dL (74-106)
[2023-08-30 18:59] LABS: INR 1.15
[2023-08-30 19:00] LABS: Alanine Aminotransferase 83 U/L (14-59); Albumin Globulin Ratio 0.8; Albumin Level 3.3 g/dL (3.4-5.0); Alkaline Phosphatase 126 U/L (46-116); Anion Gap 12.9; Aspartate Amino Transferase 119 U/L (15-37); BUN Creatinine Ratio 7.1; Bilirubin Total 1.3 mg/dL (0.2-1.0); Calcium 9.1 mg/dL (8.5-10.1); Carbon Dioxide 26.8 mmol/L (21.0-32.0); Chloride 104 mmol/L (98-107); Estimated GFR (African America >60 (>=60); Estimated GFR (Non-African Ame >60 (>=60); Ethanol <3 mg/dL; Globulin 4.4 g/dL; Glucose 84 mg/dL (74-106); Magnesium 1.6 mg/dL (1.8-2.4); Potassium 3.7 mmol/L (3.5-5.1); Sodium 140 mmol/L (136-145); Total Protein 7.7 g/dL (6.4-8.2)
[2023-08-30 19:16] LABS: Salicylate <2.8 mg/dL (<=19.9)
[2023-08-30 19:19] LABS: Acetaminophen <2.0 ug/mL (10.0-30.0)
[2023-08-30] MEDS: MAGNESIUM OXIDE 400 MG TABLET 800 MG PO (19:23)
[2023-08-30] MEDS: LORAZEPAM 2 MG/ML VIAL 1 MG IV ×3 (19:25→20:21)
[2023-08-30 20:01] LABS: Bilirubin Urine NEGATIVE (NEGATIVE); Blood Urine NEGATIVE (NEGATIVE); Clarity Urine CLEAR (CLEAR); Color Urine YELLOW (YELLOW); Glucose Urine UA NEGATIVE (NEGATIVE); Ketones Urine NEGATIVE (NEGATIVE); Leukocyte Esterase Urine NEGATIVE (NEGATIVE); Nitrite Urine NEGATIVE (NEGATIVE); Protein Urine NEGATIVE (NEG/TRACE)
[2023-08-30 20:02] LABS: Urine Microscopic Indicated NO
[2023-08-30 20:13] LABS: Amphetamine Screen Urine POSITIVE (NEGATIVE); Barbiturates Screen Urine NEGATIVE (NEGATIVE); Benzodiazepines Screen Urine POSITIVE (NEGATIVE); Buprenorphine Screen Urine NEGATIVE (NEGATIVE); Cannabinoid Screen Urine NEGATIVE (NEGATIVE); Cocaine Screen Urine NEGATIVE (NEGATIVE); Methadone Screen Urine POSITIVE (NEGATIVE); Methamphetamines Screen Urine NEGATIVE (NEGATIVE); Opiate Screen Urine NEGATIVE (NEGATIVE); Oxycodone Screen Urine NEGATIVE (NEGATIVE); Phencyclidine Screen Urine NEGATIVE (NEGATIVE); Tricyclic Antidepressant Urine NEGATIVE (NEGATIVE)
[2023-08-30] MEDS: HALOPERIDOL LACTATE 5 MG/ML VIAL IV (20:37)
--- OUTSIDE RECORDS SUMMARY | 2023-08-30 23:27 | XMS_ITS | CCD ---
Author Organization [facility] CliniSywy Care Team Providers Care Key Filer Name Role Phone ELVIS CAMPBELL Primary Care Unavailable Elvis Campbell Primary Care Provider [phone] Wolf, Nini Unavailable Unavailable TavMe delmarhrdad Unavailable Unavailable Wolf, Nini D Unavailable Unavailable Elvis Campbell V Unavailable Unavailable Wolf, Nini Unavailable Unavailable Wolf, Nini D Unavailable Unavailable Wolf, Nini Primary Care Provider [phone] WOLF, NINI Primary Care Unavailable CRESCENCIO EMANUEL Attending Unavailable Wolf, Nini D Unavailable Unavailable Unavailable Elvis Campbell V Unavailable [phone] Wolf, Nini Unavailable Chilo Glover Unavailable Unavailable WOLF, NINI Primary Care Unavailable CAR MCCARTHY Attending Unavailable CAR MCCARTHY Attending Unavailable WOLF, NINI Primary Care [...] Care Provider DO Azra Farmer Emergency Provider [phone] MD Declan Marina Emergency Provider [phone] DO Ari Aguero Emergency Provider Unavailable Primary Care Provider UnavailPHU Ornelas Attending Unavailable DECLAN GOEL Attending Unavailable JOEL ALVES Attending Unavailable MD Eric Dooley Emergency Provider [phone] TAHIR Schmitt Emergency Provider DO Pavel Yao Emergency Provider LOGAN Barrios Primary Care Provider DO Azra Farmer Emergency Provider MD Declan Marina Emergency Provider [phone] DO Ari Aguero Emergency Provider [phone] MD Eric Dooley Emergency Provider TAHIR Schmitt Emergency Provider DO Pavel Yao Emergency Provider MD Kanchan Sanchez Attending Provider Kanchan Sanchez Unavailable LOGAN Barrios Primary Care Provider DO Ari Aguero Emergency Provider [phone] MD Nguyễn Burrows Admit Provider MD Nguyễn Burrows Attending Provider [phone] Freda Clarke Unavailable Unavailable LOGAN Barrios Primary Care Provider DO Ari Aguero Emergency Provider MD Declan Marina Emergency Provider LOGAN Barrios Primary Care Provider MD Laura Impepe Attending Provider Diamante Cleveland Primary Care Physician Birgit COOPER Unavailable LOGAN Barrios Primary Care Provider DO Ari Aguero Emergency Provider Nini Miles Primary Care Provider LOGAN Barrios Primary Care Provider MD Kanchan Sanchez Attending Provider DO Ari Aguero Emergency Provider Diamante [place] Primary Care Provider TAHIR Schmitt Emergency Provider [phone] NINI MCCOLLUM Primary Care Unavailable ROSA ELENA HOWE Attending Unavailjeanine e LOGAN Barrios Primary Care Provider DO Pavel Yao Emergency Provider MD Samanta Castro Jr Emergency Provider DO Azra Farmer Emergency Provider [phone] Diamante [place] Primary Care Provider MD Gautam Burrows Attending Provider [phone] JOHN BarriosN Amanda Primary Care Provider [phone] DO Delvis Benz Emergency Provider MD Declan Marina Emergency Provider JoanaJOHNThomas Patel Primary Care Provider DO Azra Farmer Emergency Provider DO Delvis Benz Emergency Provider MD Declan Marina Emergency Provider MD Eric Dooley Emergency Provider DO Diane Paez Emergency Provider ROBUCK, Amanda E Attending Unavailable ROBUCK, Amanda E Attending Unavailable ROBUCK, Amanda E Attending Unavailable ROBUCK, Amanda E Attending Unavailable Marianna, Francisco Consulting Unavailable Azra HOGAN Admitting Unavailable Endy Raphael Attending Unavailable Marianna, Francisco Consulting Unavailable Marianna, Francisco Consulting Unavailable Marianna, Francisco Consulting Unavailable Marianna, Francisco Consulting Unavailable Marianna, Francisco Consulting Unavailable Marianna, Francisco Consulting Unavailable Marianna, Francisco Consulting Unavailable Marianna, Francisco Consulting Unavailable Marianna, Francisco Consulting Unavailable Azra HOGAN Admitting Unavailable Kam Rizzo Attending Unavailable Marianna, Francisco Consulting Unavailable Marianna, Francisco Consulting Unavailable Marianna, Francisco Consulting Unavailable Marianna, Francisco Consulting Unavailable Marianna, Francisco Consulting Unavailable Marianna, Francisco Consulting Unavailable Marianna, Francisco Consulting Unavailable Marianna, Francisoc Consulting Unavailable Darren Guzman Attending Unavailable Kerry Linton Attending Unavailable Stanislav FRAIRE Attending Unavailable Birgit COOPER Attending Unavailable Birgit COOPER Admitting Unavailable PEREZ, CARRIE Attending Unavailable Gutierneymeles Lorie Attending Unavailable Mike Spear Attending Unavailable Mike Spera Attending Unavailable JADA COLBY Attending Unavailable JADA COLBY Admitting Unavailable PEREZ, CARRIE Attending Unavailable PEREZCARRIE DE JESUS Admitting Unavailable Mike Spear Attending Unavailable Mike Spear Admitting Unavailable Bailee, Lorie Attending Unavailable Bailee, Lorie Admitting Unavailable JEF HEADLEY Attending Unavailable [...] Attending Unavailable Diamante Cleveland Primary Care Provider MD Gautam Burrows Attending Provider LOGAN Barrios Primary Care Provider MD Piyush Pace Admit Provider MD Piyush Pace Attending Provider Eric Forbes Attending Unavailable ROBJULIO, COMMISSIONER CONSERVATION OF RESOURCES Amanda E Admitting Unavailable Gautam Burrows Attending Unavailab margie Cleveland, Diamante L Primary Care Unavailable Gautam Burrows Admitting Unavailab Declan Victor Attending Unavailable Antwonuck, Amanda Primary Care Unavailable Declan Marina Admitting Unavailable Robuck, Amanda Primary Care Unavailable Diane Paez Attending Unavailable Diane Paez Admitting Unavailable Robuck, Amanda Primary Care Unavailable Ari Aguero Attending Unavailable Ari Aguero Admitting Unavailable Braeden Schmitt Attending Unavailable Braeden Schmitt Admitting Unavailable Cleveland, Diamante L Primary Care Unavailable Robuck, Amanda Primary Care Unavailable Pavel Yao Attending Unavailable Pavel Yao Admitting Unavailable Robuck, Amanda Primary Care Unavailable Samanta Castro Jr Admitting Unavailable Samanta Castro Jr Attending Unavailable Robuck, Amanda Primary Care Unavailable AsaKanchan cantu Attending Unavailable Asaad, Imad Admitting Unavailable Declan Marina Attending Unavailable Antwonjulio, Amanda Primary Care Unavailable Declan Marina Admitting Unavailable Robuck, Amanda Primary Care Unavailable Azra Farmer Attending Unavailable Azra Farmer Admitting Unavailable Robuck, Amanda Primary Care Unavailable Piysuh Pace Attending Unavailable Piyush Pace Admitting Unavailable Antwonuck, Amanda Primary Care Unavailable Delvis Benz Admitting Unavailable Delvis Benz Attending Unavailable Antwonjulio, Amanda Primary Care Unavailable Eric Dooley Attending Unavailable Eric Dooley Admitting Unavailable Robuck, Amanda Primary Care Unavailable Azra Farmer Admitting Unavailable Azra Farmer Attending Unavailable Birgit Aiken Primary Care Physician Allergies Allergy Classification Reported Allergen(s) Allergy Type Date of Onset Reaction(s) Facility Antihistamines (2 sources) hydrOXYzine; Translations: [Vistaril] Drug Allergy 4 [facility] Repository Docusate (1 source) Docusate; Translations: [Colace] Drug Allergy [facility] Repository Opioid Agonists (4 sources) Codeine; Translations: [codeine] Drug Allergy 4 Rash, Tachycardia [facility] [address] [facility] Work Phone: QUEtiapine (3 sources) QUEtiapine; Translations: [SEROquel TABS] Drug Allergy 4 Swelling [facility] Repository (9 sources) Bisacodyl Drug Allergy 7 Other (See Comments) [place], [place] (20 sources) Codeine; Translations: [codeine] Drug Allergy 7 Hives, Palpitations, Rash, Tachycardia, Red color (finding) [place], [place] (20 sources) QUEtiapine; Translations: [quetiapine] Drug Allergy 1 Swelling [facility] Work Phone: (1 source) Codeine Drug Allergy 7 [facility] Repository (1 source) Docusate Drug Allergy 7 [facility] Repository (9 sources) QUEtiapine; Translations: [SEROquel] Drug Allergy [facility] Repository (20 sources) QUEtiapine Drug Allergy 3 [facility] (20 sources) hydrOXYzine; Translations: [hydroxyzine] Drug Allergy 3 Palpitations, Anxiety [facility] (8 sources) Docusate; Translations: [Colace] Drug Allergy [facility] Repository Medications Current Medications Medication Drug Class(es) Dates Sig (Normalized) Sig (Original) acetaminophen 325 mg oral tablet (13 sources) Start: 2023 take 2 tablets by [...] Once, # 2 tab(s), Refills(s) 0, Pharmacy: [facility], 157, cm, 11/30/22 13:33:00 EDT, Height/Length [...] 10:18am Start: 01-14-2019 take 1 tablet by [facility] three times daily as needed busPIRone HCl [...] mg Start: 03-28-2022 take 1 capsule by [facility] once daily Vraylar 1.5 mg oral capsule 1.5 mg = 1 cap(s), Oral, Daily, # 30 cap(s), Refills(s) 0, [facility]acy: [id number], 157.5, cm, 03/28/22 13:50:00 EST, Height/Length Dosing, 79.1, kg, 03/28/22 13:50:00 EST, Weight Dosing Start Date: 03/28/22 Status: Ordered Start: 07-04-2021 take 1 capsule by [facility] once daily Vraylar 1.5 mg oral capsule 1.5 mg = 1 cap(s), Oral, Daily, # 30 cap(s), Refills(s) 0, Pharmacy: [facility], 157, cm, 07/04/21 15:06:00 EDT, Height/Length Dosing, 84.8, kg, 07/04/21 15:10:00 EDT, Weight Dosing Start Date: 07/04/21 Status: Ordered cephalexin 500 mg oral capsule (20 sources) Cephalosporin Antibacterial Start: 06-03-2023 End: 06-10-2023 take 1 capsule by mouth every six hours Keflex 500 mg Cap 500 mg = 1 cap(s), Oral, q6hr, X 7 day(s), # 28 cap(s), Refills(s) 0, Pharmacy: [facility], 154, cm, 06/03/23 20:33:00 EDT, Height/Length Dosing, 71.8, kg, 06/03/23 20:33:00 EDT, Weight Dosing Start Date: 06/03/23 Stop Date: 06/10/23 Status: Ordered Start: 10-02-2021 End: 10-09-2021 take 1 capsule by mouth every eight hours cephalexin 500 mg Cap 500 mg = 1 cap(s), Oral, q8hr, X 7 day(s), # 21 cap(s), Refills(s) 0, Pharmacy: [facility] #[id number], 157, cm, 09/19/21 10:21:00 EDT, Height/Length Dosing, 86, kg, 09/19/21 10:21:00 EDT, Weight Dosing Start Date: 10/02/21 Stop Date: 10/09/21 Status: Ordered Start: 04-10-2021 End: 04-19-2021 take 500 mg by mouth every six hours Cephalexin Discontinued 500 MG PO Q6H 28 April 10, 2021 1:00am April 19, 2021 11:28am [...] Hcl Active 10 MG PO Daily 2 August 10, 2023 12:00am Start: 12-12-2022 [...] Start: 10-15-2019 take 1 tablet by man every twelve hours as needed clonazePAM 0.5 MG Oral Tablet TAKE 1 TABLET EVERY 12 HOURS NEEDED. 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 [employer], Nini Start : 15-Oct-2019 Active take 1 tablet by man three times daily as needed KlonoPIN 0.5 mg oral tablet ; 1 tab(s) orally 3 times a day, As Needed Quantity: 0 Refills: 0 Ordered: 27-Jan-2020 Edwin Lujan Status: Other Generic Substitution Allowed cloNIDine hydrochloride 0.1 mg oral tablet (20 sources) Central alpha-2 Adrenergic Agonist Start: 02-07-2023 take 1 tablet by mouth twice daily cloNIDine 0.1 mg tab 0.1 mg = 1 tab(s), Oral, BID, # 60 tab(s), Refills(s) 0, Pharmacy: [facility], 154.9, cm, 01/06/23 23:41:00 EST, Height/Length Dosing, 73.1, kg, 01/06/23 23:41:00 EST, Weight Dosing Start Date: 02/07/23 Status: Ordered Start: 08-16-2022 take 1 tablet by man twice daily cloNIDine 0.1 mg tab 0.1 mg = 1 tab(s), Oral, BID, # 60 tab(s), Refills(s) 11, Pharmacy: [facility], 157, cm, 08/15/22 13:49:00 EDT, Height/Length [...] # 60 tab(s), Refills(s) 0, [facility]acy: [facility] #[id number], 157, cm, 09/19/21 10:21:00 EDT, Height/Length Dosing, 86, kg, 09/19/21 10:21:00 EDT, Weight Dosing Start Date: 09/19/21 Status: Ordered fluconazole 150 mg oral tablet (20 sources) Azole Antifungal Start: 06-17-2023 take 1 tablet by mouth once Diflucan 150 mg Tab 150 mg = 1 tab(s), Oral, Once, # 1 tab(s), Refills(s) 0, Pharmacy: [facility], 156, cm, 06/17/23 15:35:00 EDT, Height/Length [...] tablet, # 1 tab(s), Refills(s) 1, [id number], 157, cm, 09/19/21 10:21:00 EDT, Height/Length Dosing, [...] n (Neurontin) capsule 800 mg Start: 08-28-2021 End: 04-06-2023 take 1 tablet by mouth three times daily gabapentin 800 mg Tab 800 mg = 1 tab(s), Oral, TID, # 270 tab(s), Refills(s) 0 Start Date: 01/05/23 Status: Ordered Start: 04-16-2021 End: 08-13-2021 take 800 mg [...] anxiety, # 30 cap(s), Refills(s) 0, Pharmacy: [facility], 158, cm, 11/04/22 12:27:00 EDT, Height/Length [...] 11:48am Start: 08-13-2022 take 1 tablet by [facility] four times daily as needed for anxiety hydrOXYzine hydrochloride 50 mg oral tablet 50 mg = 1 tab(s), Oral, QID, PRN for anxiety, # 40 tab(s), Refills(s) 0, Pharmacy: [facility], 157.5, cm, 08/13/22 13:00:00 EDT, Height/Length [...] 50 mg take 1 capsule by mo [facility] four times daily as needed Vistaril 50 [...] mg oral tablet (20 sources) Benzodiazepine Start: 08-30-2023 End: 09-02-2023 take 1 tablet by mouth three times daily as needed for anxiety Ativan 1 mg Tab 1 mg = 1 tab(s), Oral, TID, PRN for anxiety, X 3 day(s), # 9 tab(s), Refills(s) 0, Pharmacy: [facility], 157, cm, 08/29/23 22:55:00 EDT, Height/Length Dosing, 77.9, kg, 08/29/23 22:55:00 EDT, Weight Dosing Start Date: 08/30/23 Stop Date: 09/02/23 Status: Ordered Start: 12-16-2022 LORazepam (Ati van) tablet 1 [...] day(s), # 12 tab(s), Refills(s) 0, Pharmacy: [facility], 157, cm, 12/10/22 8:08:00 EDT, Height/Length [...] 11:12am Start: 03-15-2020 take 1 tablet by man th twice daily as needed for anxiety LORazepam 0.5 MG Oral Tablet TAKE 1 TABLET Twice daily PRN anxiety 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 [employer]ATION [employer]OURCES, Nini Start : 15-Mar-2020 Active Start: 03-10-2020 [...] day(s), # 21 tab(s), Refills(s) 0, Pharmacy: [facility], 165, cm, 08/16/22 23:50:00 EDT, [...] day(s), # 14 tab(s), Refills(s) 0, Pharmacy: [facility], 156, cm, 07/14/23 11:03:00 EDT, Height/Length [...] system (20 sources) Cholinergic Nicotinic Agonist Start: 4 Nicotine Active 21 MG TRANSDERML Daily August [...] day(s), # 14 cap(s), Refills(s) 0, [id number], 157, cm, 09/19/21 10:21:00 EDT, Height/Length Dosing, 86, kg, 09/19/21 10:21:00 EDT, Weight Dosing Start Date: 09/19/21 Stop Date: 09/26/21 Status: Ordered Start: 09-21-2020 End: 12-04-2020 take 1 capsule by mouth every twelve hours at mealtime Nitrofurantoin Monohyd/M-Cryst (Macrobid) 100 mg Capsule Discontinued 100 MG PO Q12H September 21, 2020 12:00am December 04, 2020 4:06pm Administer with a meal/food: swallow whole; do not open, crush, dissolve, or chew Dobbins (No Known Home Meds) (1 source) Start: 04-06-2023 Dobbins (No Known Home Meds) Active April 06, 2023 12:00am nystatin [id number] unt/ml oral suspension (1 source) Polyene Antifungal [...] discomfort, # 60 tab(s), Refills(s) 1, Pharmacy: [facility], 157.5, cm, 08/13/22 13:00:00 EDT, Height/Length Dosing, 72.9, kg, 08/13/22 13:00:00 EDT, Weight Dosing Start Date: 08/13/22 Status: Ordered 24 hr paliperidone 3 mg extended release oral tablet (14 sources) Atypical Antipsychotic Start: 01-02-2023 take 1 [...] day(s), # 9 tab(s), Refills(s) 0, Pharmacy: [facility], 156, cm, 07/14/23 11:03:00 EDT, Height/Length [...] with food or milk. polyethylene glycol 3350 35783 mg powder for oral solution (1 source) Osmotic Laxative Start: 07-27-19 End: 08-10-19 take 17 g by mouth once daily MiraLax 3350 Oral Pwdr for Recon 249 gram 17 gm, Oral, Daily, X 14 day(s), # 255 gm, Refills(s) 0, [facility], [facility], cm, 07/04/21 15:06:00 EDT, Height/Length Dosing, 84, kg, 07/26/21 18:15:00 EDT, Weight Dosing Start Date: 07/26/21 Stop Date: 08/09/21 Status: Ordered predniSONE 20 mg oral tablet (20 sources) Start: 08-29-19 End: 09-03-19 take 2 tablets by mouth once daily predniSONE 20 mg Tab 40 mg = 2 tab(s), Oral, Daily, X 5 day(s), # 10 tab(s), Refills(s) 0, Pharmacy: [facility], 165, cm, 08/28/22 9:51:00 EDT, Height/Length [...] 13, 2020 2:22pm Therapeutic Multiple Vitamin Tab (13 sources) Start: 2023 Therapeutic Mu ltiple Vitamin [...] bedtime), # 30 tab(s), Refills(s) 5, [id number], 157.5, cm, 10/06/21 16:25:00 EDT, Height/Length Dosing, 83.1, kg, 10/06/21 16:25:00 EDT, Weight Dosing Start Date: 01/02/22 Status: Ordered Start: 07-04-2021 take 1 tablet by man th once daily at bedtime traZODONE 100 mg Tab 100 mg = 1 tab(s), Oral, Once a day (at bedtime), # 90 tab(s), Refills(s) 0, Pharmacy: [facility], 157, cm, 07/04/21 15:06:00 EDT, Height/Length [...] Daily, # 30 cap(s), Refills(s) 0, Pharmacy: [facility], 157, cm, 07/04/21 15:06:00 EDT, Height/Length Dosing, 84, kg, 07/26/21 18:15:00 EDT, Weight Dosing Start Date: 08/25/21 Status: Ordered Start: 07-04-2021 take 1 capsule by mo [facility] once daily Effexor XR 150 mg Cap-ER 150 mg = 1 cap(s), Oral, Daily, # 90 cap(s), Refills(s) 1, Pharmacy: [facility], 157, cm, 07/04/21 15:06:00 EDT, Height/Length [...] 11:49am Start: 06-02-2020 take 1 tablet by [facility] once daily Venlafaxine HCl - 37.5 MG Oral Tablet TAKE 1 TABLET DAILY. Quantity: 90 Refills: 0 Ordered: 15-Jul-2020 Nini Rojas Start : 02-Jun-2020 Active Start: 05-30-2020 End: 12-04-2020 take 37.5 mg by mouth once daily at bedtime Venlafaxine Discontinued 37.5 MG PO Daily at bedtime 30 May 30, 2020 12:00am December 04, 2020 4:06pm Start: 11-24-2018 End: 12-20-2018 take 1 capsule by mouth once daily venlafaxine (EFFEXOR XR) 37.5 MG extended release capsule Indications: Anxiety Take 1 capsule by mouth daily 30 capsule 3 11/24/2018 12/20/2018 Discontinued (LIST CLEANUP) Start: 10-23-2018 take 1 capsule by [facility] once daily venlafaxine (EFFEXOR XR) 37.5 MG [...] Active 20 MG PO Daily with supper 30 August 10, 2023 12:00am Zofran ODT 4 mg Tab-Dis (10 sources) Start: 06-03-2023 take 1 tablet by mouth every eight hours as needed for nausea Zofran ODT 4 mg Tab-Dis 4 mg = 1 tab(s), Oral, q8hr, PRN Nausea/Vomiting, # 12 tab(s), Refills(s) 0, Pharmacy: [facility], 154, cm, 06/03/23 20:33:00 EDT, Height/Length Dosing, 71.8, kg, 06/03/23 20:33:00 EDT, Weight Dosing Start Date: 06/03/23 Status: Ordered Completed/Discontinued Medications Medication Drug Class(es) Dates Sig (Normalized) Sig (Original) acetaminophen 325 mg / HYDROcodone bitartrate 5 mg oral tablet (20 sources) Opioid Agonist Start: 01-25-2017 End: 08-07-2018 take 1 tablet by mouth every four to six hours Hydrocodone-Aceta minophen ([place]) 5-325 mg tablet Discontinued 1 TAB PO [...] PRN SOB/WHEEZING Quantity: 1 Refills: 5 Wolf RESEARCH KENNEL SUPERVISOR-COMMISSIONER [employer]OURCES, Nini Start : 20-May-2019 Active 6.7 GM Inhaler ALPRAZolam 0.5 mg oral tablet (20 sources) Benzodiazepine Start: 06-08-2020 End: 09-21-2020 take 1 tablet by mouth three times daily Alprazolam (Xanax) 0.5 mg tablet Discontinued 0.5 MG PO Three times daily 24 06June 08, 2020 12:00am September 21, 2020 10:18am [...] 1 TABLET DAILY. Quantity: 90 Refills: 0 Ingris FORD-FREDDY, Nini Start : 15-Mar-2020 Active Start: 04-17-2019 take 1 tablet by man th once daily ARIPiprazole 20 MG Oral Tablet TAKE 1 TABLET DAILY. Quantity: 90 Refills: 3 Ingris LOPEZN-COMMISSIONER CONSERVATION OF RESOURCES, Nini Start : 17-Apr-2019 Active brompheniramine maleate 0.4 mg/ml / dextromethorphan hydrobromide 2 mg/ml / pseudoephedrine hydrochloride 6 mg/ml oral solution (1 source) alpha-Adrenergic Agonist, Uncompetitive R-eqhfnp-H-aspartate Receptor Antagonist, Sigma-1 Agonist Start: 04-04-2020 End: 04-13-2020 take 5 mL by mouth every four to six hours brompheniramine/pseudoephedrine/dextrome thorphan [id number]/5 mL oral syrup ; 5 milliliter(s) orally [...] Discontinued 450 MG PO Q 8H 63 April 03, 2022 1:00am June 07, 2022 [...] Escitalopram Oxalate Discontinued 5 MG PO Daily 15 June 10, 2022 12:00am September 06, 2022 [...] day(s), # 20 tab(s), Refills(s) 0, Pharmacy: [facility], 155, cm, 01/05/23 1:00:00 EST, Height/Length [...] nausea, # 10 tab(s), Refills(s) 0, Pharmacy: [facility], 157, cm, 12/10/22 8:08:00 EDT, Height/Length [...] Quantity: 30 Refills: 0 Ordered: 02-Jun-2020 Nini Roajs Start : 02-Jun-2020 Active Start: 02-23-2020 End: [...] Start: 10-23-2018 take 1 tablet by man three times daily as needed rOPINIRole (REQUIP) [...] PO Twice daily 14 April 03, 2022 1:00am June 07, 2022 [...] 10-11-2022 Immunizations and screening for infectious disease (19 sources) Exposure to sexually transmissible disorder; Translations: [...] examination] Episodic Other aftercare (1 source) Other rodent exterminator (current) drug therapy; Translations: [OTH MORTGAGE OPERATIONS MANAGER CURRENT DRUG THERAPY] Onset: 07-31-2021 Episodic Other [...] Test Name Value Interpretation Reference Range Facility CHEMISTRYOrdered By: SYSTEM SYSTEM on 08-29-2023 Anion gap [Moles/Vol] 13 mmol/L Normal 6 - 16 mEq/L R emisol Chem Calcium [Mass/Vol] 9.1 mg/dL Normal 8.9 - 11. 1 mg/dL [facility] Chloride [Moles/Vol] 103 mmol/L Normal 101 - 1 11 mmol/L [facility] Cholesterol [Mass/Vol] 126 mg/dL Normal 120 - 200 mg/dL [facility] Cholesterol in HDL [Mass/Vol] 18 mg/dL Invalid Interpretation Code Remisol Chem Comment on above: Result Comment: '>= 60 LOW RISK' '<= 40 HIGH RISK' Cholesterol in LDL [Mass/Vol] 97 mg/dL Normal <=129mg/dL [facility] Cholesterol in VLDL [Mass/Vol] 25 mg/dL Normal 7 - 40 mg/dL [facility] CO2 [Moles/Vol] 22 mmol/L Normal 21 - 31 mmol/L [facility] Creatinine [Mass/Vol] 0.5 mg/dL Normal 0.5 - 1.3 mg/dL [facility] eGFR 128 mL/min/1.73 m2 Normal >=59mL/mi n/1 .73 m2 [facility] Glucose [Mass/Vol] 93 mg/dL Normal 55 - 199 mg/dL [facility] Potassium [Moles/Vol] 3.9 mmol/L Normal 3.5 - 5.3 mmol/L [facility] Sodium [Moles/Vol] 134 mmol/L Low 135 - 145 mmol/L [facility] Triglyceride [Mass/Vol] 127 mg/dL Normal <=149mg/dL [facility] Urea nitrogen [Mass/Vol] 8 mg/dL Normal 5 - 21 mg/dL [facility] Urea nitrogen/Creatinine [Mass ratio] 16 mg/mg Normal 10 - 20 [facility] CHEMISTRYOrdered By: Cruz benites on 08-29-2023 TSH Qn 2.97 m[IU]/L Normal 0.34 - 5.60 mcIU/mL [facility] HEMATOLOGYOrdered By: SYSTEM SYSTEM on 08-29-2023 Erythrocyte distribution width (RBC) [Ratio] 13.9 % Normal 10.9 - 14.2 % [facility] Heme Hematocrit (Bld) [Volume fraction] 34.6 % Normal 34.0 - 46.0 % [facility] Hemoglobin (Bld) [Mass/Vol] 12.1 g/dL Normal 12.0 - 16.0 gm/dL [facility] MCH (RBC) [Entitic mass] 35.3 pg High 27.0 - 34.0 pg [facility]e MCHC (RBC) [Mass/Vol] 34.9 g/dL Normal 31.4 - 36.0 gm/dL [facility] MCV (RBC) [Entitic vol] 101.1 fL High 80.0 - 100.0 fL [facility] Platelet 111.0 E9/L Low 150.0 - 500.0 E9/L [facility] Heme Platelet mean volume (Bld) [Entitic vol] 8.9 fL Normal 6.4 - 10.8 fL Rem[facility] Heme RBC (Bld) [#/Vol] 3.4 E12/L Low 4.3 - 5.9 E12/L Rem[facility] Heme RBC size Nom (Bld) NORMAL *NA* (08/29/23 8:56 AM) Invalid Interpretation Code Remisol Heme WBC corrected for nucl RBC Auto (Bld) [#/Vol] 4.8 E9/L Normal 4.0 - 11.0 E9/L Remisol Heme Provider Letteron 08-13-2023 Provider Letter Provider Letter August 13, 2023 LYLE BAILEY [address] [place] [phone] LYLE BAILEY T 1990 Dear Lyle, We have been trying to reach you with no success. It is important that you return our call regarding your hospital discharge upon receiving this letter. Also, at the time of your call, please provide us with your current information. Thank you for your prompt attention to this matter. Sincerely, Ernesto Rossi RN, Roll Former [phone] Normal [facility] ED Note-Physicianon 08-09-19 ED Note-Physician ED [...] Father. Lab Results WBC: 7.4 E9/L (08/06/23 17:28:00) RBC: 3.4 E12/L Low (08/06/23 17:28:00) HGB: 11.9 gm/dL Low (08/06/23 17:28:00) Hct: 33.1 % Low (08/06/23::00) MCV: 98.1 fL (08/06/23::00) MCH: 35.2 pg High (08/06/23::) MCHC: 35.9 gm/dL (08/06/23::) RDW: 14.2 % (08/06/23::) Platelet: 101 E9/L Low (08/06/23::) MPV: 9.4 fL (08/06/23::) Neutro Auto: 68.1 % (08/06/23::) Lymph Auto: 26.3 % (08/06/23::) Norman Auto: 4.3 % (08/06/23:) Eos Auto: 0.5 % (more content not included)... Normal [facility] Comment on above: Result Comment: Elec tronically Signed By: Fabricio Gao PA-C\.br\Date and Time Signed: 08/06/23 18:28 EDT\.br\Electronically Co-Signed By: Eric Forbes DO\.br\Date and Time Co-Signed: 08/09/23 07:16 EDT Cholesterol [Mass/volume] in Serum or PlasmaOrdered By: Piyush Pace on 08-07-2023 Cholesterol [Mass/Vol] 125 mg/dL Low 140-200 [facility] Comment on above: Chol less than 200 m g/dl low riskChol 201-239 mg/dl borderline riskChol 240 mg/dl and greater high risk Result Comment: Chol less than 200 mg/dl low risk Chol 201-239 mg/dl borderline risk Chol 240 mg/dl and greater high risk Performed By: #### E ODALIS, MG, CMP, CBC #### [address] Cholesterol in LDL Calc [Mas s/Vol]Ordered By: Piyush Pace on 08-07-2023 Cholesterol in LDL [Mass/Vol] 78 mg/dL 0-100 [facility] Comment on above: LDL ATP III CLASSIFI CATIONLDL less than 100 mg/dL OptimalLDL 100-129 mg/dL Near or above optimalLDL 130-159 mg/dL Borderline highLDL 160-189 mg/dL HighLDL greater than 189 mg/dL Very high Cholesterol in VLDL Calc [Ma ss/Vol]Ordered By: Piyush Pace on 08-07-2023 Cholesterol in VLDL [Mass/Vol] 31 mg/dL [facility] ECG 12 lead ECGon 08-07-2023 [address] [facility] [place] [address] [place] [address] Electrocardiograph Report Signed Patient: Lyle Bailey MR#: [id number] : 1990 Acct:[id number] Age/Sex: 33 / F ADM Date: 08/06/23 Loc: Room: [address] [place] [address] Type: ADM IN Attending Dr: Piyush Pace [...] Referred By: Electronically Signed By:AZRA AVILA MD LOCATED WITHIN [facility] Transcribed By: MUS Signed By Endy Avila MD 08/07/23 1248 Normal [facility] Lipid Panelon 08-07-2023 LDL Cholesterol,Calculate d 78 mg/dL Normal 0-100 [facility] Comment on above: Result Comment: LDL ATP III CLASSIFICATION LDL less than 100 mg/dL Optimal LDL 100-129 mg/dL Near or above optimal LDL 130-159 mg/dL Borderline high LDL 160-189 mg/dL High LDL greater than 189 mg/dL Very high Performed By: #### E ODALIS, MG, CMP, CBC #### [place] [id number] [place] Triglyceride w/Reflex 155 mg/dL High 0-149 [facility] Comment on above: Result Comment: TRIG ATP III CLASSIFICATION TRIG less than 150 mg/dL Normal TRIG 150-199 mg/dL Borderline high TRIG 200-500 mg/dL High TRIG greater than 500 mg/dL Very high Standard traceable to the Center for Disease Conrtrol and Prevention (CDC) test method. Performed By: #### E ODALIS, MG, CMP, CBC #### [facility] [address] VLDL CHOLESTEROL 31 mg/dL Normal [facility] Comment on above: Performed By: #### E ODALIS, MG, CMP, CBC #### [address] Serum or plasma high density lipoprotein (HDL) cholesterol measurementOrdered By: Piyush Pace on 08-07-2023 Cholesterol in HDL [Mass/Vol] 16 mg/dL Low 23-92 [facility] Comment on above: HDL CHOL ATP-III CLA SSIFICATION Cardiovascular RiskHDL > or equal to 60 mg/dL LOWHDL < 40 mg/dL HIGH Result Comment: HDL CHOL ATP-III CLASSIFICATION Cardiovascular Risk HDL > or equal to 60 mg/dL LOW HDL < 40 mg/dL HIGH Performed By: #### E ODALIS, MG, CMP, CBC #### [address] Serum or plasma total choles terol/high density lipoprotein (HDL) cholesterol mass ratOrdered By: Piyush Pace on 08-07-2023 Cholesterol.total/Cho lesterol in HDL [Mass ratio] 7.8 {ratio} Normal <5.0 [facility] Comment on above: Performed By: #### E ODALIS, MG, CMP, CBC #### [facility] [address] [place] [address] Thyroid Stim Hormone w/Rflxo n 08-07-2023 Thyroid Stim Hormone w/Rflx 2.11 u[iU]/mL Normal 0.45-5.33 [facility] Comment on above: Performed By: #### E ODALIS, MG, CMP, CBC #### [address] [place] [address] [place] Thyrotropin [Units/volume] i n Serum or PlasmaOrdered By: Piyush Sanjeev on 08-07-2023 TSH Qn 2.11 m[IU]/L 0.45-5.33 [facility] Triglyceride [Mass/volume] i n Serum or PlasmaOrdered By: Piyush Pace on 08-07-2023 Triglyceride [Mass/Vol] 155 mg/dL High 0-149 [facility] Comment on above: TRIG ATP III CLASSIF ICATIONTRIG less than 150 mg/dL NormalTRIG 150-199 mg/dL Borderline highTRIG 200-500 mg/dL High TRIG greater than 500 mg/dL Very highStandard traceable to the Center for Disease Conrtrol and Prevention (CDC) test method. Vitamin D 25 Hydroxy Totalon 08-07-2023 Vitamin D 25 Hydroxy Total 39.7 ng/mL Normal 30-100 [facility] Comment on above: Result Comment: [place] MIN D STATUS 25(OH)VITAMIN D RANGE (ng/mL) Deficient <20 Insufficient 20 to <30 Sufficient 30 to 100 Reference: David Garcia, Horace COTO, et al. Evaluation,treatment, and prevention of vitamin D deficiency; an Endocrine Society clinical practice guideline. JCEM. 2010; 96(7):1911-30. PERFORMED BY: [place] [address] PATHOLOGIST [employer] LEE CARDOSO M.D. Performed By: #### E ODALIS, MG, CMP, CBC #### [facility] [address] [place] [address] Vitamin D+Metabolites [Mass/ volume] in Serum or PlasmaOrdered By: Piyush Pace on 08-07-2023 Vitamin D+Metabolites [Mass/Vol] 39.7 ng/mL 30-100 [facility] Comment on above: VITAMIN D STATUS 25( [place])VITAMIN D RANGE (ng/mL) Deficient <20 Insufficient 20 to <30Sufficient 30 to 100Reference: David Garcia, Horace COTO, et al. Evaluation,treatment, and prevention of vitamin D deficiency; an Endocrine Society clinical practice guideline. JCEM. 2010; 96(7):1911-30. CBC w/ Auto Diffon 4 Basophils/100 WBC (Bld) 0.8 % Normal 0.0-2.0 [facility] Comment on above: Order Comment: phleb s Oley and judit attempted to draw and were unsuccessful. called other phlebs to come draw. [facility] 08/06/2023 17:07:15 EDT Performed By: #### 2 [id number] #### [facility] [address] [place] [address] Basophils/Leukocytes Auto (Bld) [Pure # fraction] 0.1 E9/L Normal 0.0-0.2 [facility] Comment on above: Order Comment: phleb s Oley and judit attempted to draw and were unsuccessful. called other phlebs to come draw. [facility] 08/06/2023 17:07:15 EDT Performed By: #### 2 [id number] #### [facility] [address] [place] [address] Eosinophils (Bld) [#/Vol] 0.0 E9/L Normal 0.0-0.5 [facility] Comment on above: Order Comment: phleb s Oley and judit attempted to draw and were unsuccessful. called other phlebs to come draw. [facility] 08/06/2023 17:07:15 EDT Performed By: #### 2 [id number] #### [facility] [address] [place] [address] Eosinophils/100 WBC (Bld) 0.5 % Normal 0.0-8.0 [facility] Comment on above: Order Comment: phleb s Oley and judit attempted to draw and were unsuccessful. called other phlebs to come draw. [facility] 08/06/2023 17:07:15 EDT Performed By: #### 2 [id number] #### [facility] [address] [place] [address] Erythrocyte distribution width (RBC) [Ratio] 14.2 % Normal 10.9-14.2 [facility] Comment on above: Order Comment: phleb s Oley and judit attempted to draw and were unsuccessful. called other phlebs to come draw. [id number] 08/06/2023 17:07:15 EDT Performed By: #### 2 [id number] #### [facility] [address] [place] [address] Hematocrit (Bld) [Volume fraction] 33.1 % Low 34.0-46.0 [facility] Comment on above: Order Comment: phleb s Oley and judit attempted to draw and were unsuccessful. called other phlebs to come draw. [facility] 08/06/2023 17:07:15 EDT Performed By: #### 2 [id number] #### [facility] [address] [place] [address] Hemoglobin (Bld) [Mass/Vol] 11.9 g/dL Low 12.0-16.0 [facility] Comment on above: Order Comment: phleb s Oley and judit attempted to draw and were unsuccessful. called other phlebs to come draw. [facility] 08/06/2023 17:07:15 EDT Performed By: #### 2 [id number] #### [facility] [address] [place] [address] Lymphocytes (Bld) [#/Vol] 1.9 E9/L Normal 1.0-4.0 [facility] Comment on above: Order Comment: phleb s Oley and judit attempted to draw and were unsuccessful. called other phlebs to come draw. [id number] 08/06/2023 17:07:15 EDT Performed By: #### 2 [id number] #### [facility] [address] [place] [address] Lymphocytes/100 WBC (Bld) 26.3 % Normal 14.0-50.0 [facility] Comment on above: Order Comment: phleb s Oley and judit attempted to draw and were unsuccessful. called other phlebs to come draw. [id number] 08/06/2023 17:07:15 EDT Performed By: #### 2 [id number] #### [facility] [address] [place] [address] MCH (RBC) [Entitic mass] 35.2 pg High 27.0-34.0 [facility] Comment on above: Order Comment: phleb s Oley and judit attempted to draw and were unsuccessful. called other phlebs to come draw. [id number] 08/06/2023 17:07:15 EDT Performed By: #### 2 [id number] #### [facility] [address] [place] [address] MCHC (RBC) [Mass/Vol] 35.9 g/dL Normal 31.4-36.0 [facility] Comment on above: Order Comment: phleb s Oley and judit attempted to draw and were unsuccessful. called other phlebs to come draw. [id number] 08/06/2023 17:07:15 EDT Performed By: #### 2 [id number] #### [facility] [address] [place] [address] MCV (RBC) [Entitic vol] 98.1 fL Normal 80.0-100.0 [facility] Comment on above: Order Comment: phleb s Oley and judit attempted to draw and were unsuccessful. called other phlebs to come draw. [facility] 08/06/2023 17:07:15 EDT Performed By: #### 2 [id number] #### [facility] [address] [place] [address] Monocytes (Bld) [#/Vol] 0.3 E9/L Normal 0.2-1.0 [facility] Comment on above: Order Comment: phleb s Oley and judit attempted to draw and were unsuccessful. called other phlebs to come draw. [id number] 08/06/2023 17:07:15 EDT Performed By: #### 2 [id number] #### [facility] [address] [place] [address] Neutrophils (Bld) [#/Vol] 5.0 E9/L Normal 2.0-7.5 [facility] Comment on above: Order Comment: phleb s Oley and judit attempted to draw and were unsuccessful. called other phlebs to come draw. [id number] 08/06/2023 17:07:15 EDT Performed By: #### 2 [id number] #### [facility] [address] [place] [address] Neutrophils/100 WBC (Bld) 68.1 % Normal 36.0-75.0 [facility] Comment on above: Order Comment: phleb s Oley and judit attempted to draw and were unsuccessful. called other phlebs to come draw. [id number] 08/06/2023 17:07:15 EDT Performed By: #### 2 [id number] #### [facility] [address] [place] [address] Platelet 101.0 E9/L Low 150.0-500.0 [facility] Comment on above: Order Comment: phleb s Oley and judit attempted to draw and were unsuccessful. called other phlebs to come draw. [id number] 08/06/2023 17:07:15 EDT Performed By: #### 2 [id number] #### [facility] [address] [place] [address] Platelet mean volume (Bld) [Entitic vol] 9.4 fL Normal 6.4-10.8 [facility] Comment on above: Order Comment: phleb s Oley and judit attempted to draw and were unsuccessful. called other phlebs to come draw. [id number] 08/06/2023 17:07:15 EDT Performed By: #### 2 [id number] #### [facility] [address] [place] [address] RBC (Bld) [#/Vol] 3.4 E12/L Low 4.3-5.9 [facility] Comment on above: Order Comment: phleb s Oley and judit attempted to draw and were unsuccessful. called other phlebs to come draw. [id number] 08/06/2023 17:07:15 EDT Performed By: #### 2 [id number] #### [facility] [address] [place] [address] WBC corrected for nucl RBC Auto (Bld) [#/Vol] 7.4 E9/L Normal 4.0-11.0 [facility] Comment on above: Order Comment: phleb s Oley and judit attempted to draw and were unsuccessful. called other phlebs to come draw. [id number] 08/06/2023 17:07:15 EDT Performed By: #### 2 [id number] #### [facility] [address] [place] [address] CHEMISTRYOrdered By: SYSTEM SYSTEM on 08-06-2023 Amphetamines [...] 08-06-2023 Albumin [Mass/Vol] 3.7 g/dL Normal 3.3-5.0 [facility] Comment on above: Performed By: #### 2 [id number] #### [facility] [address] [place] [address] Albumin/Globulin (S) [Mass conc ratio] 1.2 Normal 1.1-2.2 [facility] Comment on above: Performed By: #### 2 [id number] #### [facility] [address] [place] [address] ALP [Catalytic activity/Vol] 98 Int._Unit/L Normal 21-98 [facility] Comment on above: Performed By: #### 2 [id number] #### [facility] [address] [place] [address] ALT No additional P-5'-P [Catalytic activity/Vol] 74 Int._Unit/L High 6-46 [facility] Comment on above: Performed By: #### 2 [id number] #### [facility] [address] [place] [address] Anion gap [Moles/Vol] 10 mmol/L Normal 6-16 [facility] Comment on above: Performed By: #### 2 [id number] #### [facility] [address] [place] [address] AST [Catalytic activity/Vol] 114 Int._Unit/L High 5-43 [facility] Comment on above: Performed By: #### 2 [id number] #### [facility] [address] [place] [address] Bilirubin [Mass/Vol] 1.1 mg/dL Normal 0.0-1.1 [facility] Comment on above: Performed By: #### 2 [id number] #### [facility] [address] [place] [address] Calcium [Mass/Vol] 8.5 mg/dL Low 8.9-11.1 [facility] Comment on above: Performed By: #### 2 [id number] #### [facility] [address] [place] [address] Chloride [Moles/Vol] 100 mmol/L Low 101-111 [facility] Comment on above: Performed By: #### 2 [id number] #### [facility] [address] [place] [address] CO2 [Moles/Vol] 25 mmol/L Normal 21-31 [facility] Comment on above: Performed By: #### 2 115516 #### [facility] [address] [place] [address] Creatinine [Mass/Vol] 0.5 mg/dL Normal 0.5-1.3 [facility] Comment on above: Performed By: #### 2 378755 #### [facility] [address] [place] [address] Globulin (S) [Mass/Vol] 3.1 g/dL Normal 1.4-4.0 [facility] Comment on above: Performed By: #### 2 [id number] #### [facility] [address] [place] [address] Glucose [Mass/Vol] 92 mg/dL Normal 55-199 [facility] Comment on above: Performed By: #### 2 920919 #### [facility] [address] [place] [address] Potassium [Moles/Vol] 3.8 mmol/L Normal 3.5-5.3 [facility] Comment on above: Performed By: #### 2 912456 #### [facility] [address] [place] [address] Protein [Mass/Vol] 6.8 g/dL Normal 6.0-7.8 [facility] Comment on above: Performed By: #### 2 792242 #### [facility] [address] [place] [address] Sodium [Moles/Vol] 131 mmol/L Low 135-145 [facility] Comment on above: Performed By: #### 2 358983 #### [facility] [address] [place] [address] Urea nitrogen [Mass/Vol] 7 mg/dL Normal - [facility] Comment on above: Performed By: #### 2 963213 #### [facility] [address] [place] [address] Urea nitrogen/Creatinine [Mass ratio] 14 No Units Normal - [facility] Comment on above: Performed By: #### 2 935943 #### [facility] [address] [place] [address] Consent for Treatmenton 07-13 Consent for Treatment [id number] F Normal [facility] ED Clinical Summaryon 2023 ED Clinical Summary (Inserted Image. Tracy ble to display) [address] [address] ED Clinical Summary Person Information Name: LYLE BAILEY Rachel Faye/[facility] Age: 33 Years : 1990 Sex: Female Language: Mongolian PCP: Amanda BARRIOS CNP Marital Status: Single [...] 08/06/2023 21:00:25 08/06/2023 21:00:25 08/06/2023 21:00:25 ADDRESS: [address] [place] [id number] PHYS DOC NOTES: MEDICAL INFORMATION: Prescriptions Given: [...] INFORMATION: Instructions: Follow up: DIAGNOSIS: 1:Hallucinations Normal [facility] ED Note-Nursingon 08-06-2023 ED Note-Nursing Spoke to Evaristo from [facility]. Informed this RN that she talked to mother and mother stated that pt expressed SI today and wanted to shoot herself with a gun to get the voices to stop. Pt placed under suicidal precautions at this time. Sitter outside room. All belongings removed. Normal [facility] ED Patient Education Noteon 08-06-2023 ED Patient Education Note Normal [facility] ED Patient Summaryon 024 ED Patient Summary (Inserted Image. Tracy ble to display) [place] [id number] Patient Discharge Instructions Person Information Name: LYLE BAILEY Age: 33 Years Arrival Date: 08/06/2023 15:46:17 Discharge Diagnosis: 1:Hallucinations Primary Care Physician: Amanda BARRIOS CNP Provider Information Primary Provider: Eric Forbes DO Advanced Client Delivery Specialist:Fabricio Gao PA-C The exam and treatment you received in the Emergency Department were for an urgent problem and are not intended as complete care. It is important that you follow up with a doctor, nurse practitioner, or physician?s business development assistant for ongoing care. If your symptoms [...] opioids can be used to help relieve vjdqbxnz-pr-oufndg pain and are often prescribed following a [...] be struggling with addiction, tell your health field care advocate and ask for guidance or call SAMHSA?S National Helpline at 6-565-504-HELP. v Source: US Department of Health and Human Services/Center for Disease Control & Prevention [facility] Medications Given: Medication Dose Route (more content not included)... Normal [facility] Ethanolon 08-06-2023 Ethanol Lvl <10 Normal <=11 [facility] Comment on above: Performed By: #### 2 [id number] #### [facility] [address] [place] [address] HEMATOLOGYOrdered By: SYSTEM SYSTEM on 08-06-2023 Basophils/100 [...] Remisol Heme Outside Recordson 08-06-2023 Outside Records [id number] FF Normal [facility] Transfer Documentson 024 Transfer Documents [id number] FF Normal [facility] U Drug Screenon 08-06-2023 Amphetamines Screen method >1000 ng/mL Ql (U) Positive Abnormal NEGATIVE [facility] Comment on above: Result Comment: Nega tive Cutoff: <1000 ng/mL Performed By: #### 2 [id number] #### [facility] [address] [place] [address] Barbiturates Screen Ql (U) Negative Normal NEGATIVE [facility] Comment on above: Result Comment: Nega tive Cutoff: <200 ng/mL Performed By: #### 2 [id number] #### [facility] [address] [place] [address] Benzodiazepines Ql (U) Negative Normal NEGATIVE [facility] Comment on above: Result Comment: Nega tive Cutoff: <200 ng/mL Performed By: #### 2 869158 #### [facility] [address] [place] [address] Cannabinoids Screen Ql (U) Negative Normal NEGATIVE [facility] Comment on above: Result Comment: Nega tive Cutoff: <50 ng/mL Performed By: #### 2 627009 #### [facility] [address] [place] [address] Cocaine Ql (U) Negative Normal NEGATIVE [facility] Comment on above: Result Comment: Nega tive Cutoff: <300 ng/mL Performed By: #### 2 [id number] #### [facility] [address] [place] [address] Opiates Screen Ql (U) Negative Normal NEGATIVE [facility] Comment on above: Result Comment: Nega tive Cutoff: <300 ng/mL Performed By: #### 2 037151 #### [facility] [address] [place] [address] Phencyclidine Screen method >25 ng/mL Ql (U) Negative Normal NEGATIVE [facility] Comment on above: Result Comment: Nega tive Cutoff: <25 ng/mL These drug screen results are to be used for medical (i.e., treatment) purposes only. Unconfirmed drug screening results must not be used for non-medical purposes (e.g., employment testing, legal testing). Performed By: #### 2 [id number] #### [facility] [address] [place] [address] U Fentanyl Negative Normal NEGATIVE [facility] Comment on above: Result Comment: Nega tive Cutoff: <5 ng/mL These drug screen results are to be used for medical (i.e., treatment) purposes only. Unconfirmed drug screening results must not be used for non-medical purposes (e.g., employment testing, legal testing). Performed By: #### 2 [id number] #### [facility] [address] [place] [address] Valuables Checkliston 2023 Valuables Checklist [id number] FF Normal [facility] eGFRon 08-06-2023 eGFR 128 mL/min/1.73 m2 Normal >=59 [facility] Comment on above: Order Comment: Order added by Discern Expert. Performed By: #### 1 [id number] #### [facility] [address] [place] [address] C Urineon 07-17-2023 Bacteria identified Cx Nom (U) Microbiology PROCEDURE: Urine Culture [R1] SOURCE: U CleanCatch BODY SITE: COLLECTED DATE/TIME: 07/14/2023 11:20 EDT RECEIVED DATE/TIME: 07/15/2023 12:20 EDT START DATE/TIME: 07/15/2023 12:20 EDT FREE TEXT SOURCE: Rainer HARO, Mike Spear PA-C, Mike Underwood. FINAL REPORTS Final Report [] Verified Date/Time: 07/17/2023 11:13 EDT 500 cfu/ml Mixed skin contaminants Performing Locations R1: This test was performed at: [facility], [address] [place] [address], [phone] , , Normal [facility] Comment on above: Performed By: #### 2 [id number] #### [facility] [address] [place] [address] Chlam/GC/Trich,NAAon 024 C. trachomatis rRNA MOISES+probe Ql (Unsp spec) Negative Invalid Interpretation Code Negative [facility] Comment on above: Performed By: #### 1 [id number] #### [facility] [address] [place] [address] N. gonorrhoeae rRNA MOISES+probe Ql (Unsp spec) Negative Invalid Interpretation Code Negative [facility] Comment on above: Performed By: #### 1 [id number] #### [facility] [address] [place] [address] T. vaginalis rRNA MOISES+probe Ql (Unsp spec) Negative Invalid Interpretation Code Negative [facility] Comment on above: Result Comment: Perf ormed at: =[facility] [address]Chloé Dalal [id number] MD Pete Norman Performed By: #### 1 [id number] #### [facility] [address] [place] [address] Ambulatory Visit Summaryon 0 07-14-2023 Ambulatory Visit [...] future visit, Nurse collect, BMI 29.0-29.9,adult Normal [facility] Family Medicine Office/Clini c Noteon 07-14-2023 Family [...] with voice recognition software. Occasional wrong-word or ?ryxdh-j-ewma? substitutions may have occurred due to the inherent limitations of voice recognition software. 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 You were [...] day(s), # 14 tab(s), Refills(s) 0, Pharmacy: [facility], 156, cm, 07/14/23 11:03:00 EDT, Height/Length Dosing, 71, kg, 07/14/23 11:03:00 EDT, Weight Dosing phenazopyridine, 100 mg = 1 tab(s), Oral, TID, X 3 day(s), # 9 tab(s), Refills(s) 0, Pharmacy: [facility], 156, cm, 07/14/23 11:03:00 EDT, Height/Length Dosing, 71, kg, 07/14/23 11:03:00 EDT, Weight Dosing Chlam/GC/Trich,MOISES Urine Culture Urnls Dip Stick (more content not included)... Normal [facility] Comment on above: Result Comment: Elec [...] numbers. This can be done either in [place]ian ([place] or metric measurements. Note that charts and online BMI calculators are available to help you find your BMI quickly and easily without having to do these calculations yourself. To calculate your BMI in [place]ian ([place] measurements: 1. Measure your weight in [...] for Disease Control and Prevention: www.cdc.gov ? [employer]: www.heart.org ? National Heart, Lung, [facility] Blood [place]: www.nhlbi.nih.gov Summary ? Body mass index (BMI) is a number that is calculated from a person's weight and height. ? BMI may help estimate how much of a person's weight is composed of fat. BMI can help identify those who may be at higher risk for certain medical problems. ? BMI can be measured using Mongolian measurements or metric measurements. ? BMI charts are used to identify whether you are underweight, normal weight, overweight, or obese. This information is not intended to replace advice given to you by your health care provider. Make sure you discuss any questions you have with your health care provider. Document Revised: 10/21/2019 Document Reviewed: 08/28/2019 [employer] Patient Education ? 2022 [employer] Pulmonary Medicine Steps to Quit Smoking [...] to quit. (more content not included)... Normal [facility] Valuables Checkliston 2023 Valuables Checklist [id number]#[id number] FF Normal [facility] B hCG Qualon 07-05-2023 Beta HCG ( test) Ql Negative Normal [facility] Comment on above: Performed By: #### 2 [id number] #### [facility] [address] [place] [address] CBC w/ Auto Diffon 4 Basophils/100 WBC (Bld) 2.5 % High 0.0-2.0 [facility] Comment on above: Performed By: #### 2 [id number] #### [facility] [address] [place] [address] Basophils/Leukocytes Auto (Bld) [Pure # fraction] 0.2 E9/L Normal 0.0-0.2 [facility] Comment on above: Performed By: #### 2 [id number] #### [facility] [address] [place] [address] Eosinophils (Bld) [#/Vol] 0.0 E9/L Normal 0.0-0.5 [facility] Comment on above: Performed By: #### 2 [id number] #### [facility] [address] [place] [address] Eosinophils/100 WBC (Bld) 0.4 % Normal 0.0-8.0 [facility] Comment on above: Performed By: #### 2 [id number] #### [facility] [address] [place] [address] Erythrocyte distribution width (RBC) [Ratio] 14.0 % Normal 10.9-14.2 [facility] Comment on above: Performed By: #### 2 [id number] #### [facility] [address] [place] [address] Hematocrit (Bld) [Volume fraction] 37.6 % Normal 34.0-46.0 [facility] Comment on above: Performed By: #### 2 128152 #### [facility] [address] [place] [address] Hemoglobin (Bld) [Mass/Vol] 12.8 g/dL Normal 12.0-16.0 [facility] Comment on above: Performed By: #### 2 843116 #### [facility] [address] [place] [address] Lymphocytes (Bld) [#/Vol] 2.4 E9/L Normal 1.0-4.0 [facility] Comment on above: Performed By: #### 2 816526 #### [facility] [address] [place] [address] Lymphocytes/100 WBC (Bld) 28.9 % Normal 14.0-50.0 [facility] Comment on above: Performed By: #### 2 354466 #### [facility] [address] [place] [address] MCH (RBC) [Entitic mass] 33.8 pg Normal 27.0-34.0 [facility] Comment on above: Performed By: #### 2 250657 #### [facility] [address] [place] [address] MCHC (RBC) [Mass/Vol] 34.2 g/dL Normal 31.4-36.0 [facility] Comment on above: Performed By: #### 2 233776 #### [facility] [address] [place] [address] MCV (RBC) [Entitic vol] 98.9 fL Normal 80.0-100.0 [facility] Comment on above: Performed By: #### 2 148581 #### [facility] [address] [place] [address] Monocytes (Bld) [#/Vol] 0.4 E9/L Normal 0.2-1.0 [facility] Comment on above: Performed By: #### 2 824043 #### [facility] [address] [place] [address] Neutrophils (Bld) [#/Vol] 5.1 E9/L Normal 2.0-7.5 [facility] Comment on above: Performed By: #### 2 362744 #### [facility] [address] [place] [address] Neutrophils/100 WBC (Bld) 63.2 % Normal 36.0-75.0 [facility] Comment on above: Performed By: #### 2 719064 #### [facility] [address] [place] [address] Platelet mean volume (Bld) [Entitic vol] 9.4 fL Normal 6.4-10.8 [facility] Comment on above: Performed By: #### 2 836761 #### [facility] [address] [place] [address] Platelets (Bld) [#/Vol] 128.0 E9/L Low 150.0-500.0 [facility] Comment on above: Performed By: #### 2 915364 #### [facility] [address] [place] [address] RBC (Bld) [#/Vol] 3.8 E12/L Low 4.3-5.9 [facility] Comment on above: Performed By: #### 2 998803 #### [facility] [address] [place] [address] WBC corrected for nucl RBC Auto (Bld) [#/Vol] 8.1 E9/L Normal 4.0-11.0 [facility] Comment on above: Performed By: #### 2 017838 #### [facility] [address] [place] [address] CHEMISTRYOrdered By: SYSTEM SYSTEM on 07-05-2023 Amphetamines Screen method >1000 ng/mL Ql (U) NEGATIVE 7 (5/24/24 11:21 AM) Normal NEGATIVE Remisol Chem Comment [...] ED at 12:05 on 07/05/23 by ajitk. Interpretive Data: N egative Cutoff: <200 ng/mL [...] 07-05-2023 Albumin [Mass/Vol] 4.1 g/dL Normal 3.3-5.0 [facility] Comment on above: Performed By: #### 2 [id number] #### [facility] [address] [place] [address] Albumin/Globulin (S) [Mass conc ratio] 1.1 Normal 1.1-2.2 [facility] Comment on above: Performed By: #### 2 891549 #### [facility] [address] [place] [address] ALP [Catalytic activity/Vol] 111 Int._Unit/L High 21-98 [facility] Comment on above: Performed By: #### 2 605518 #### [facility] [address] [place] [address] ALT No additional P-5'-P [Catalytic activity/Vol] 66 Int._Unit/L High 6-46 [facility] Comment on above: Performed By: #### 2 [id number] #### [facility] [address] [place] [address] Anion gap [Moles/Vol] 14 mmol/L Normal 6-16 [facility] Comment on above: Performed By: #### 2 564927 #### [facility] [address] [place] [address] AST [Catalytic activity/Vol] 119 Int._Unit/L High 5-43 [facility] Comment on above: Performed By: #### 2 408558 #### [facility] [address] [place] [address] Bilirubin [Mass/Vol] 0.7 mg/dL Normal 0.0-1.1 [facility] Comment on above: Performed By: #### 2 [id number] #### [facility] [address] [place] [address] Calcium [Mass/Vol] 8.9 mg/dL Normal 8.9-11.1 [facility] Comment on above: Performed By: #### 2 645414 #### [facility] [address] [place] [address] Chloride [Moles/Vol] 108 mmol/L Normal 101-111 [facility] Comment on above: Performed By: #### 2 502175 #### [facility] [address] [place] [address] CO2 [Moles/Vol] 23 mmol/L Normal 21-31 [facility] Comment on above: Performed By: #### 2 393055 #### [facility] [address] [place] [address] Creatinine [Mass/Vol] 0.6 mg/dL Normal 0.5-1.3 [facility] Comment on above: Performed By: #### 2 967143 #### [facility] [address] [place] [address] Globulin (S) [Mass/Vol] 3.8 g/dL Normal 1.4-4.0 [facility] Comment on above: Performed By: #### 2 038532 #### [facility] [address] [place] [address] Glucose [Mass/Vol] 97 mg/dL Normal 55-199 [facility] Comment on above: Performed By: #### 2 616674 #### [facility] [address] [place] [address] Potassium [Moles/Vol] 4.0 mmol/L Normal 3.5-5.3 [facility] Comment on above: Performed By: #### 2 444773 #### [facility] [address] [place] [address] Protein [Mass/Vol] 7.9 g/dL High 6.0-7.8 [facility] Comment on above: Performed By: #### 2 131403 #### [facility] [address] [place] [address] Sodium [Moles/Vol] 141 mmol/L Normal 135-145 [facility] Comment on above: Performed By: #### 2 612986 #### [facility] [address] [place] [address] Urea nitrogen [Mass/Vol] 4 mg/dL Low 5-21 [facility] Comment on above: Performed By: #### 2 737187 #### [facility] [address] [place] [address] Urea nitrogen/Creatinine [Mass ratio] 7 No Units Low 10-20 [facility] Comment on above: Performed By: #### 2 214962 #### [facility] [address] [place] [address] Consent for Treatmenton 06-12 Consent for Treatment [id number] FF Normal [facility] ED Clinical Summaryon 2023 ED Clinical Summary (Inserted Image. Tracy ble to display) [address] [address] ED Clinical Summary Person Information Name: LYLE BAILEY Faye/[facility] Age: 33 Years : 1990 Sex: Female Language: Mongolian PCP: Amanda BARRIOS CNP Marital Status: Single [...] 07/05/2023 22:01:40 07/05/2023 22:01:40 07/05/2023 22:01:40 ADDRESS: [address] [id number] PHYS DOC NOTES: Addendum by Kerry Linton [...] Acute alcohol intoxication; Behavior concern in adult [facility] ED Note-Nursingon 07-05-2023 ED Note-Nursing [facility] arrives to transport pt to [facility]. attempting to call report to [facility] at this time [facility] ED Note-Physicianon 07-05-19 ED Note-Physician Basic Information [...] 150 mg (more content not included)... Normal [facility] Comment on above: Result Comment: Elec tronically Signed By: Kerry Linton DO\.ella\Date and Time Signed: 07/05/23 20:54 EDT ED Patient Education Noteon 07-05-2023 ED Patient Education Note Normal [facility] ED Patient Summaryon 024 ED Patient Summary (Inserted Image. Tracy ble to display) [address] [address] Patient Discharge Instructions Person Information Name: LYLE BAILEY Age: 33 Years Arrival Date: 07/05/2023 10:35:06 Discharge Diagnosis: Acute alcohol intoxication; Behavior concern in adult Primary Care Physician: Amanda BARRIOS CNP Provider Information Primary Provider: Isai Hall DO Advanced Client Delivery Specialist:None The exam and treatment you received in the Emergency Department were for an urgent problem and are not intended as complete care. It is important that you follow up with a doctor, nurse practitioner, or physician?s business development assistant for ongoing care. If your symptoms [...] opioids can be used to help relieve kwmmdgdj-gw-tgkaut pain and are often prescribed following a [...] be struggling with addiction, tell your health field care advocate and ask for guidance or call [facility]?S National Helpline at 6-324-025-VFFU. l Source: [place] Department of Health and Human Services/Center for Disease Control & Prevention [facility] Medications Given: Me (more content not included)... Normal [facility] Ethanolon 07-05-2023 Ethanol Lvl 240 mg/dL Abnormal <=11 [facility] Comment on above: Result Comment: Crit ical Result Verified by Repeat Analysis Critical Result [id number] Called to and read back by: CHILO MACK at: 07/05/2023 11:45:39 by:CALLIE Performed By: #### 2 [id number] #### [facility] [address] [place] [address] HEMATOLOGYOrdered By: SYSTEM SYSTEM on 07-05-2023 Basophils/100 [...] Remisol Heme Outside Recordson 07-05-2023 Outside Records [id number] FF Normal [facility] SEROLOGYOrdered By: Monica Earl on 07-05-2023 Beta HCG ( test) Ql Negative (07/05/23 11:03 AM) Normal [facility] Man Sero Transfer Documentson 024 Transfer Documents [id number] FF Normal [facility] U Drug Screenon 07-05-2023 Amphetamines Screen method >1000 ng/mL Ql (U) Negative Normal NEGATIVE [facility] Comment on above: Result Comment: Nega tive Cutoff: <1000 ng/mL Performed By: #### 2 [id number] #### [facility] [address] [place] [address] Barbiturates Screen Ql (U) Positive Abnormal NEGATIVE [facility] Comment on above: Result Comment: Resu lt verified by repeat analysis, Unconfirmed by alternate method No Confirmation Requested by Physician. Called to Chilo Mack in ED at 12:05 on 07/05/23 by ajitk. Negative Cutoff: <200 ng/mL Performed By: #### 2 616388 #### [facility] [address] [place] [address] Benzodiazepines Ql (U) Negative Normal NEGATIVE [facility] Comment on above: Result Comment: Nega tive Cutoff: <200 ng/mL Performed By: #### 2 530101 #### [facility] [address] [place] [address] Cannabinoids Screen Ql (U) Negative Normal NEGATIVE [facility] Comment on above: Result Comment: Nega tive Cutoff: <50 ng/mL Performed By: #### 2 [id number] #### [facility] [address] [place] [address] Cocaine Ql (U) Negative Normal NEGATIVE [facility] Comment on above: Result Comment: Nega tive Cutoff: <300 ng/mL Performed By: #### 2 424874 #### [facility] [address] [place] [address] Opiates Screen Ql (U) Negative Normal NEGATIVE Fis [facility] Comment on above: Result Comment: Nega tive Cutoff: <300 ng/mL Performed By: #### 2 994551 #### [facility] [address] [place] [address] Phencyclidine Screen method >25 ng/mL Ql (U) Negative Normal NEGATIVE [facility] Comment on above: Result Comment: Nega tive Cutoff: <25 ng/mL These drug screen results are to be used for medical (i.e., treatment) purposes only. Unconfirmed drug screening results must not be used for non-medical purposes (e.g., employment testing, legal testing). Performed By: #### 2 [id number] #### [facility] [address] [place] [address] U Fentanyl Negative Normal NEGATIVE [facility] Comment on above: Result Comment: Nega tive Cutoff: <5 ng/mL These drug screen results are to be used for medical (i.e., treatment) purposes only. Unconfirmed drug screening results must not be used for non-medical purposes (e.g., employment testing, legal testing). Performed By: #### 2 517009 #### [facility] [address] [place] [address] UA with Cult Rflxon 07-05-19 24 Bilirubin Ql (U) Negative Normal Negative [facility] Comment on above: Performed By: #### 4 [id number] #### [facility] [address] [place] [address] Clarity (U) Clear Normal Clear [facility] Comment on above: Performed By: #### 4 [id number] #### [facility] [address] [place] [address] Color (U) Yellow Normal Yellow [facility] Comment on above: Result Comment: Micr oscopic readings are only performed on those samples that meet specific criteria set forth by [facility]. Performed By: #### 4 [id number] #### [facility] [address] [place] [address] Glucose Ql (U) Negative Normal Negative [facility] Comment on above: Performed By: #### 4 [id number] #### [facility] [address] [place] [address] Hemoglobin Auto test strip (U) [Mass/Vol] Negative Normal Negative [facility] Comment on above: Performed By: #### 4 [id number] #### [facility] [address] [place] [address] Ketones Auto test strip Ql (U) Negative Normal Negative [facility] Comment on above: Performed By: #### 4 [id number] #### [facility] [address] [place] [address] Leukocyte esterase Auto test strip Ql (U) Negative Normal Negative [facility] Comment on above: Performed By: #### 4 [id number] #### [facility] [address] [place] [address] Nitrite Auto test strip Ql (U) Negative Normal Negative [facility] Comment on above: Performed By: #### 4 [id number] #### [facility] [address] [place] [address] pH (U) 7.0 [pH] Invalid Interpretation Code 5.0-9.0 [facility] Comment on above: Performed By: #### 4 [id number] #### [facility] [address] [place] [address] Protein Ql (U) Negative Normal Negative [facility] Comment on above: Performed By: #### 4 [id number] #### [facility] [address] [place] [address] Specific gravity (U) [Rel density] 1.012 Invalid Interpretation Code 1.005-1.030 [facility] Comment on above: Performed By: #### 4 [id number] #### [facility] [address] [place] [address] Urobilinogen (U) [Mass/Vol] 4 mg/dL Abnormal Negative [facility] Comment on above: Performed By: #### 4 [id number] #### [facility] [address] [place] [address] Type of Urine collection method Clean Catch Normal [facility] Comment on above: Performed By: #### 4 [id number] #### [facility] [address] [place] [address] URINALYSISOrdered By: SYSTEM SYSTEM on 07-05-2023 Bilirubin Ql (U) Negative Normal Negativemg/ d L [facility] UA Auto SS Clarity (U) Clear (07/05/23 11:21 AM) Normal Clear [facility] UA Auto SS Color (U) Yellow 3 (07/05/23 11:21 AM) Normal Yellow [facility] UA Auto SS Comment on above: Interpretive Data: M icroscopic readings are only performed on those samples that meet specific criteria set forth by [facility]. Glucose Ql (U) Negative Normal Negativemg/d L [facility] UA Auto SS Hemoglobin Auto test strip (U) [Mass/Vol] Negative Normal Negativemg/d L FT UA Auto SS Ketones Auto test strip Ql (U) Negative Normal Negativemg/d L FT UA Auto SS Leukocyte esterase Auto test strip Ql (U) Negative Normal NegativeLeu/ uL FT UA Auto SS Nitrite Auto test strip Ql (U) Negative Normal Negativemg/d L FT UA Auto SS pH (U) 7.0 *NA* (07/05/23 11:21 AM) Invalid Interpretation Code 5.0 - 9.0 FT UA Auto SS Protein Ql (U) Negative Normal Negativemg/d L FT UA Auto SS Specific gravity (U) [Rel density] 1.012 *NA* (07/05/23 11:21 AM) Invalid Interpretation Code 1.005 - 1.030 FT UA Auto SS Urobilinogen (U) [Mass/Vol] 4 mg/dL Invalid Interpretation Code Negativemg/d L [facility] UA Auto SS URINALYSISOrdered By: Isai Hall on 07-05-2023 UA Spec Desc Clean Catch (07/05/23 11:21 AM) Normal [facility] UA Auto SS eGFRon 07-05-2023 eGFR 123 mL/min/1.73 m2 Normal >=59 [facility] Comment on above: Order Comment: Order added by Discern Expert. Performed By: #### 1 [id number] #### [facility] [address] [place] [address] [facility] Anion gap [Moles/Vol] 15 mmol/L Normal 6-16 [facility] Comment on above: Performed By: #### 2 [id number] #### [facility] [address] [place] [address] Calcium [Mass/Vol] 9.3 mg/dL Normal 8.9-11.1 [facility] Comment on above: Performed By: #### 2 [id number] #### [facility] [address] [place] [address] Chloride [Moles/Vol] 99 mmol/L Low 101-111 [facility] Comment on above: Performed By: #### 2 745583 #### [facility] [address] [place] [address] CO2 [Moles/Vol] 24 mmol/L Normal 21-31 [facility] Comment on above: Performed By: #### 2 [id number] #### [facility] [address] [place] [address] Creatinine [Mass/Vol] 0.6 mg/dL Normal 0.5-1.3 [facility] Comment on above: Performed By: #### 2 [id number] #### [facility] [address] [place] [address] Glucose [Mass/Vol] 92 mg/dL Normal 55-199 [facility] Comment on above: Performed By: #### 2 949303 #### [facility] [address] [place] [address] Potassium [Moles/Vol] 3.9 mmol/L Normal 3.5-5.3 [facility] Comment on above: Performed By: #### 2 [id number] #### [facility] [address] [place] [address] Sodium [Moles/Vol] 134 mmol/L Low 135-145 [facility] Comment on above: Performed By: #### 2 479894 #### [facility] [address] [place] [address] Urea nitrogen [Mass/Vol] 3 mg/dL Low 5-21 [facility] Comment on above: Performed By: #### 2 355710 #### [facility] [address] [place] [address] Urea nitrogen/Creatinine [Mass ratio] 5 No Units Low 10-20 [facility] Comment on above: Performed By: #### 2 323356 #### [facility] [address] [place] [address] CBC w/ Auto Diffon 4 Basophils/100 WBC (Bld) 0.3 % Normal 0.0-2.0 [facility] Comment on above: Performed By: #### 2 408140 #### [facility] [address] [place] [address] Basophils/Leukocytes Auto (Bld) [Pure # fraction] 0.0 E9/L Normal 0.0-0.2 [facility] Comment on above: Performed By: #### 2 545213 #### [facility] [address] [place] [address] Eosinophils (Bld) [#/Vol] 0.1 E9/L Normal 0.0-0.5 [facility] Comment on above: Performed By: #### 2 [id number] #### [facility] [address] [place] [address] Eosinophils/100 WBC (Bld) 1.5 % Normal 0.0-8.0 [facility] Comment on above: Performed By: #### 2 958537 #### [facility] [address] [place] [address] Erythrocyte distribution width (RBC) [Ratio] 14.0 % Normal 10.9-14.2 [facility] Comment on above: Performed By: #### 2 486393 #### [facility] [address] [place] [address] Hematocrit (Bld) [Volume fraction] 39.3 % Normal 34.0-46.0 [facility] Comment on above: Performed By: #### 2 [id number] #### [facility] [address] [place] [address] Hemoglobin (Bld) [Mass/Vol] 13.2 g/dL Normal 12.0-16.0 [facility] Comment on above: Performed By: #### 2 412398 #### [facility] [address] [place] [address] Lymphocytes (Bld) [#/Vol] 1.6 E9/L Normal 1.0-4.0 [facility] Comment on above: Performed By: #### 2 [id number] #### [facility] [address] [place] [address] Lymphocytes/100 WBC (Bld) 33.5 % Normal 14.0-50.0 [facility] Comment on above: Performed By: #### 2 523009 #### [facility] [address] [place] [address] MCH (RBC) [Entitic mass] 33.7 pg Normal 27.0-34.0 [facility] Comment on above: Performed By: #### 2 660520 #### [facility] [address] [place] [address] MCHC (RBC) [Mass/Vol] 33.5 g/dL Normal 31.4-36.0 [facility] Comment on above: Performed By: #### 2 072252 #### [facility] [address] [place] [address] MCV (RBC) [Entitic vol] 100.6 fL High 80.0-100.0 [facility] Comment on above: Performed By: #### 2 436171 #### [facility] [address] [place] [address] Monocytes (Bld) [#/Vol] 0.2 E9/L Normal 0.2-1.0 [facility] Comment on above: Performed By: #### 2 901054 #### [facility] [address] [place] [address] Neutrophils (Bld) [#/Vol] 2.8 E9/L Normal 2.0-7.5 [facility] Comment on above: Performed By: #### 2 340216 #### [facility] [address] [place] [address] Neutrophils/100 WBC (Bld) 59.5 % Normal 36.0-75.0 [facility] Comment on above: Performed By: #### 2 058211 #### [facility] [address] [place] [address] Platelet 126.0 E9/L Low 150.0-500.0 [facility] Comment on above: Performed By: #### 2 [id number] #### [facility] [address] [place] [address] Platelet mean volume (Bld) [Entitic vol] 8.9 fL Normal 6.4-10.8 [facility] Comment on above: Performed By: #### 2 [id number] #### [facility] [address] [place] [address] RBC (Bld) [#/Vol] 3.9 E12/L Low 4.3-5.9 [facility] Comment on above: Performed By: #### 2 [id number] #### [facility] [address] [place] [address] WBC corrected for nucl RBC Auto (Bld) [#/Vol] 4.7 E9/L Normal 4.0-11.0 [facility] Comment on above: Performed By: #### 2 [id number] #### [facility] [address] [place] [address] CHEMISTRYOrdered By: SYSTEM SYSTEM on 07-03-2023 Amphetamines [...] 109 mg/dL High 55 - 99 mg/dL [facility] POC Subsection Comment on above: Result Comment: Seema bo Meter POC Device SN [id number] Invalid Interpretation Code [facility] POC Subsection POC User ID [id number] 1 Invalid Interpretation Code [facility] POC Subsection POC Username HUA BETTS Invalid Interpretation Code [facility] POC Subsection CHEMISTRYOrdered By: Paty Clark on 07-03-2023 Albumin [Mass/Vol] 4.1 g/dL Normal 3.3 - 5.0 gm/dL [facility] Chem S Albumin/Globulin [Mass ratio] 1.2 {ratio} Normal 1.1 - 2.2 [facility] Chem S ALP [Catalytic activity/Vol] 105 [iU]/d High 21 - 98 Int._Unit/L [facility] Chem S ALT No additional P-5'-P [Catalytic activity/Vol] 86 [iU]/d High 6 - 46 Int._Unit/L [facility] Chem S Anion gap [Moles/Vol] 15 mmol/L Normal 6 - 16 mEq/L [facility] Chem S AST [Catalytic activity/Vol] 132 [iU]/d High 5 - 43 Int._Unit/L [facility] Chem S Bilirubin [Mass/Vol] 0.9 mg/dL Normal 0.0 - 1 .1 mg/dL [facility] Chem S Bilirubin.direct [Mass/Vol] 0.3 mg/dL Normal 0.0 - 0.4 mg/dL [facility] Chem S Bilirubin.indirect [Mass or moles/Vol] 0.6 mg/dL Normal 0.1 - 0.9 mg/dL [facility] Chem S Calcium [Mass/Vol] 9.3 mg/dL Normal 8.9 - 11. 1 mg/dL [facility] Chem S Chloride [Moles/Vol] 99 mmol/L Low 101 - 1 11 mmol/L [facility] Chem S CO2 [Moles/Vol] 24 mmol/L Normal 21 - 31 mmol/L [facility] Chem S Creatinine [Mass/Vol] 0.6 mg/dL Normal 0.5 - 1.3 mg/dL [facility] Chem S eGFR 132 mL/min/1.73 m2 Normal >=59mL/mi n/1 .73 m2 [facility] Chem S Ethanol Lvl mg/dL Normal <=11mg/dL [facility] Chem S Globulin (S) [Mass/Vol] 3.4 g/dL Normal 1.4 - 4.0 gm/dL [facility] Chem S Glucose [Mass/Vol] 92 mg/dL Normal 55 - 199 mg/dL [facility] Chem S Magnesium [Mass/Vol] 1.5 mg/dL Normal 1.3 - 2 .4 mg/dL [facility] Chem S Potassium [Moles/Vol] 3.9 mmol/L Normal 3.5 - 5.3 mmol/L [facility] Chem S Protein [Mass/Vol] 7.5 g/dL Normal 6.0 - 7.8 gm/dL [facility] Chem S Sodium [Moles/Vol] 134 mmol/L Low 135 - 145 mmol/L [facility] S Urea nitrogen [Mass/Vol] 3 mg/dL Low 5 - 21 mg/dL [facility] Chem S Urea nitrogen/Creatinine [Mass ratio] 5 mg/mg Low 10 - 20 [facility] Chem S Capillary Glucose POCon 06-12 Glucose [Mass/Vol] 109 mg/dL High 55-99 [facility] Comment on above: Result Comment: Seema soriano Meter Performed By: #### 2 [id number] #### [facility] [address] [place] [address] Consent for Treatmenton 06-12 Consent for Treatment [id number] FF Normal [facility] Discharge Instructionson Discharge Instructions [id number]#[id number] FF Normal [facility] ED Clinical Summaryon 2023 ED Clinical Summary (Inserted Image. Tracy ble to display) [address] [address] ED Clinical Summary Person Information Name: LYLE BAILEY Faye/[facility] Age: 33 Years : 1990 Sex: Female Language: Mongolian PCP: Amanda BARRIOS CNP Marital Status: Single [...] 07/03/2023 10:49:08 07/03/2023 10:49:08 07/03/2023 10:49:08 ADDRESS: [address] [place] [phone] [facility] DOC NOTES: MEDICAL INFORMATION: Prescriptions Given: Medications [...] day. PATIENT EDUCATION INFORMATION: Instructions: Seizure, Adult, Arie-od-Opof; Alcohol Withdrawal Syndrome, Mhly-yb-Wayf Follow up: With: Address: When: Amanda BARRIOS [address] [place] [address] Business (1) Within 1 to 2 days, only if needed DIAGNOSIS: 1:Alcohol withdrawal seizure; Unspecified convulsions Normal [facility] ED Note-Physicianon 07-03-19 ED Note-Physician Basic Information [...] medications Follow-up With When Contact Information Amanda JOANA Within 1 to 2 days, only if needed [address] [place] [address]- Business (1) Additional Instructions: Patient Education Seizure, Adult, Neyg-qs-Caxq Alcohol Withdrawal Syndrome, Jfgy-gp-Nczl Problem List/Past Medical History Ongoing Alcohol abuse [...] cigarettes (1 (more content not included)... Normal [facility] Comment on above: Result Comment: Elec tronically Signed By: Samanta SINGLETARY, Kaushik\.br\Date and Time Signed: 07/03/23 10:45 EDT ED [...] Follow these instructions at home: ? Take opxq-spa-ufchfqz and prescription medicines only as told by [...] provider. Document Revised: 04/11/2022 Document Reviewed: 04/11/2022 [employer] Patient Education ? 2022 [employer] Neurology Seizure, Adult A seizure is [...] clear cau (more content not included)... Normal [facility] ED Patient Summaryon 024 ED Patient Summary (Inserted Image. Tracy ble to display) [address] [address] Patient Discharge Instructions Person Information Name: LYLE BAILEY Age: 33 Years Arrival Date: 07/03/2023 07:31:19 Discharge Diagnosis: 1:Alcohol withdrawal seizure; Unspecified convulsions Primary Care Physician: Amanda BARRIOS CNP Provider Information Primary Provider: Kaushik Sparks MD Advanced Client Delivery Specialist:None The exam and treatment you received in the Emergency Department were for an urgent problem and are not intended as complete care. It is important that you follow up with a doctor, nurse practitioner, or physician?s business development assistant for ongoing care. If your symptoms [...] Instructions: With: Address: When: Amanda BARRIOS [address] [place] [address] Business (1) Within 1 to 2 days, only if needed In the event that this physician does not participate in your insurance network, please consult with your insurance company to find a nearby participating provider. Patient Education Materials: Seizure, Adult, Xmjs-zp-Obnr; Alcohol Withdrawal Syndrome, Gtjm-se-Pmxc A MESSAGE TO ALL PATIENTS REGARDING OPIOIDS PRESCRIPTION OPIOIDS: WHAT YOU NEED TO KNOW Prescription opioids can be used to help relieve ujswihup-ns-uuiwxi pain and are often prescribed following a [...] be struggling with addiction, tell your health field care advocate and ask for guidance or ca (more content not included)... Normal [facility] EMS Documentationon 07-03-19 24 EMS Documentation Please click on link to see report Normal [facility] Comment on above: Result Comment: Miss roman Attachment - total size limit for all attachments exceeded [email or web address] Can be viewed in source system Ethanolon 07-03-2023 Ethanol Lvl <10 Normal <=11 [facility] Comment on above: Performed By: #### 2 [id number] #### [facility] [address] [place] [address] HEMATOLOGYOrdered By: SYSTEM SYSTEM on 07-03-2023 Basophils/100 [...] 07-03-2023 Albumin [Mass/Vol] 4.1 g/dL Normal 3.3-5.0 [facility] Comment on above: Performed By: #### 2 [id number] #### [facility] [address] [place] [address] Albumin/Globulin (S) [Mass conc ratio] 1.2 Normal 1.1-2.2 [facility] Comment on above: Performed By: #### 2 [id number] #### [facility] [address] [place] [address] ALP [Catalytic activity/Vol] 105 Int._Unit/L High 21-98 [facility] Comment on above: Performed By: #### 2 [id number] #### [facility] [address] [place] [address] ALT No additional P-5'-P [Catalytic activity/Vol] 86 Int._Unit/L High 6-46 [facility] Comment on above: Performed By: #### 2 140281 #### [facility] [address] [place] [address] AST [Catalytic activity/Vol] 132 Int._Unit/L High 5-43 [facility] Comment on above: Performed By: #### 2 [id number] #### [facility] [address] [place] [address] Bilirubin [Mass/Vol] 0.9 mg/dL Normal 0.0-1.1 [facility] Comment on above: Performed By: #### 2 127572 #### [facility] [address] [place] [address] Bilirubin.direct [Mass/Vol] 0.3 mg/dL Normal 0.0-0.4 [facility] Comment on above: Performed By: #### 2 871461 #### [facility] [address] [place] [address] Bilirubin.indirect [Mass or moles/Vol] 0.6 mg/dL Normal 0.1-0.9 [facility] Comment on above: Performed By: #### 2 412500 #### [facility] [address] [place] [address] Globulin (S) [Mass/Vol] 3.4 g/dL Normal 1.4-4.0 [facility] Comment on above: Performed By: #### 2 706132 #### [facility] [address] [place] [address] Protein [Mass/Vol] 7.5 g/dL Normal 6.0-7.8 [facility] Comment on above: Performed By: #### 2 880320 #### [facility] [address] [place] [address] Magnesiumon 07-03-2023 Magnesium [Mass/Vol] 1.5 mg/dL Normal 1.3-2.4 [facility] Comment on above: Performed By: #### 2 907873 #### [facility] [address] [place] [address] Pre-Arrival Noteon Pre-Arrival Note Pre-Arrival Summary Name: , britany Current Date: 07/03/2023 07:31:40 EDT Gender: Female Date of : Age: 32 Pre-Arrival Type: EMS ETA: 07/03/2023 07:50:00 EDT Primary Care Physician: Presenting Problem: pseudoseizure Pre-Arrival User: Chilo Godoy RN Referring Source: Location: [place] Completion Date/Time: 07/03/2023 07:20:00 [facility] Emergency Department Pre-Hospital Report Form Vital Signs: Pre-Hospital Report: Treatment in Route: Response to Treatment: Misc. Issues: Normal [facility] U Drug Screenon 07-03-2023 Amphetamines Screen method >1000 ng/mL Ql (U) Negative Normal NEGATIVE [facility] Comment on above: Result Comment: Nega tive Cutoff: <1000 ng/mL Performed By: #### 2 [id number] #### [facility] [address] [place] [address] Barbiturates Screen Ql (U) Negative Normal NEGATIVE [facility] Comment on above: Result Comment: Nega tive Cutoff: <200 ng/mL Performed By: #### 2 834181 #### [facility] [address] [place] [address] Benzodiazepines Ql (U) Negative Normal NEGATIVE [facility] Comment on above: Result Comment: Nega tive Cutoff: <200 ng/mL Performed By: #### 2 990117 #### [facility] [address] [place] [address] Cannabinoids Screen Ql (U) Negative Normal NEGATIVE [facility] Comment on above: Result Comment: Nega tive Cutoff: <50 ng/mL Performed By: #### 2 [id number] #### [facility] [address] [place] [address] Cocaine Ql (U) Negative Normal NEGATIVE [facility] Comment on above: Result Comment: Nega tive Cutoff: <300 ng/mL Performed By: #### 2 313140 #### [facility] [address] [place] [address] Opiates Screen Ql (U) Negative Normal NEGATIVE [facility] Comment on above: Result Comment: Nega tive Cutoff: <300 ng/mL Performed By: #### 2 276548 #### [facility] [address] [place] [address] Phencyclidine Screen method >25 ng/mL Ql (U) Negative Normal NEGATIVE [facility] Comment on above: Result Comment: Nega tive Cutoff: <25 ng/mL These drug screen results are to be used for medical (i.e., treatment) purposes only. Unconfirmed drug screening results must not be used for non-medical purposes (e.g., employment testing, legal testing). Performed By: #### 2 580231 #### [facility] [address] [place] [address] U Fentanyl Positive Abnormal NEGATIVE [facility] Comment on above: Result Comment: No [...] testing, legal testing). Performed By: #### 2 [id number] #### [facility] [address] [place] [address] eGFRon 07-03-2023 eGFR 132 mL/min/1.73 m2 Normal >=59 [facility] Comment on above: Order Comment: Order added by Discern Expert. Performed By: #### 1 [id number] #### [facility] [address] [place] [address] Discharge Instructionson Discharge Instructions [id number] FF Normal [facility] ED Clinical Summaryon 2023 ED Clinical Summary (Inserted Image. Tracy ble to display) [place] [id number] ED Clinical Summary Person Information Name: LYLE BAILEY [place] Age: 33 Years : 1990 Sex: Female Language: Mongolian PCP: Amanda BARRIOS CNP Marital Status: Single [...] 06/30/2023 23:51:55 06/30/2023 23:51:55 06/30/2023 23:51:55 ADDRESS: [address] [place] [phone] PHYS DOC NOTES: MEDICAL INFORMATION: Prescriptions Given: [...] Follow up: With: Address: When: Amanda BARRIOS [address] [place], [place] [id number] [facility] (1) In 3 days DIAGNOSIS: Acute alcohol intoxication; Drinking binge [facility] ED Note-Physicianon 07-01-19 ED Note-Physician Patient [...] will follow-up with her primary care physician. Normal [facility] Comment on above: Result Comment: Elec tronically Signed By: Darren Guzman DO\.ella\Date and Time [...] between alcoholic drinks. General instructions ? Take qsyi-xze-saqsvoc and prescription medicines only as told by your health care provider. ? Do not drive after drinking any amount of alcohol. Plan for a designated home delivery driver or another way to go home. ? Have someone responsible stay with you while you are intoxicated. You should notbe left alone. Contac (more content not included)... Normal [facility] ED Patient Summaryon 024 ED Patient Summary (Inserted Image. Tracy ble to display) [address] [address] Patient Discharge Instructions Person Information Name: LYLE BAILEY Age: 33 Years Arrival Date: 06/30/2023 13:42:59 Discharge Diagnosis: Acute alcohol intoxication; Drinking binge Primary Care Physician: Amanda BARRIOS CNP Provider Information Primary Provider: Isai Hall DO Advanced Client Delivery Specialist:None The exam and treatment you received in the Emergency Department were for an urgent problem and are not intended as complete care. It is important that you follow up with a doctor, nurse practitioner, or physician?s business development assistant for ongoing care. If your symptoms [...] Follow-up Instructions: With: Address: When: Amanda BARRIOS [address] [place] [address] Business (1) In 3 days In the event that this physician does not participate in your insurance network, please consult with your insurance company to find a nearby participating provider. Patient Education Materials: Alcohol Intoxication A MESSAGE TO ALL PATIENTS REGARDING OPIOIDS PRESCRIPTION OPIOIDS: WHAT YOU NEED TO KNOW Prescription opioids can be used to help relieve lnlblqeu-oe-obwetv pain and are often prescribed following a [...] be struggling with addiction, tell your health field care advocate and ask for guidance or call [facility] National Helpline at 5-857-166-AJFG. v Source: [employer] of [employer] (more content not included)... Normal [facility] B hCG Qualon 06-30-2023 Beta HCG ( test) Ql Negative Normal [facility] Comment on above: Performed By: #### 2 [id number] #### [facility] [address] [place] [address] BMPon 06-30-2023 Anion gap [Moles/Vol] 19 mmol/L High 6-16 [facility] Comment on above: Performed By: #### 2 811041 #### [facility] [address] [place] [address] Calcium [Mass/Vol] 8.9 mg/dL Normal 8.9-11.1 [facility] Comment on above: Performed By: #### 2 020389 #### [facility] [address] [place] [address] Chloride [Moles/Vol] 98 mmol/L Low 101-111 [facility] Comment on above: Performed By: #### 2 477384 #### [facility] [address] [place] [address] CO2 [Moles/Vol] 25 mmol/L Normal 21-31 [facility] Comment on above: Performed By: #### 2 287843 #### [facility] [address] [place] [address] Creatinine [Mass/Vol] 0.6 mg/dL Normal 0.5-1.3 [facility] Comment on above: Performed By: #### 2 165777 #### [facility] [address] [place] [address] Glucose [Mass/Vol] 88 mg/dL Normal 55-199 [facility] Comment on above: Performed By: #### 2 829518 #### [facility] [address] [place] [address] Potassium [Moles/Vol] 4.0 mmol/L Normal 3.5-5.3 [facility] Comment on above: Performed By: #### 2 491834 #### [facility] [address] [place] [address] Sodium [Moles/Vol] 138 mmol/L Normal 135-145 [facility] Comment on above: Performed By: #### 2 316530 #### [facility] [address] [place] [address] Urea nitrogen [Mass/Vol] 6 mg/dL Normal 5-21 [facility] Comment on above: Performed By: #### 2 486492 #### [facility] [address] [place] [address] Urea nitrogen/Creatinine [Mass ratio] 10 No Units Normal 10-20 [facility] Comment on above: Performed By: #### 2 831432 #### [facility] [address] [place] [address] CBC w/ Auto Diffon 4 Basophils/100 WBC (Bld) 0.7 % Normal 0.0-2.0 [facility] Comment on above: Performed By: #### 2 836510 #### [facility] [address] [place] [address] Basophils/Leukocytes Auto (Bld) [Pure # fraction] 0.1 E9/L Normal 0.0-0.2 [facility] Comment on above: Performed By: #### 2 650718 #### [facility] [address] [place] [address] Eosinophils (Bld) [#/Vol] 0.0 E9/L Normal 0.0-0.5 [facility] Comment on above: Performed By: #### 2 106513 #### [facility] [address] [place] [address] Eosinophils/100 WBC (Bld) 0.2 % Normal 0.0-8.0 [facility] Comment on above: Performed By: #### 2 109986 #### [facility] [address] [place] [address] Erythrocyte distribution width (RBC) [Ratio] 14.1 % Normal 10.9-14.2 [facility] Comment on above: Performed By: #### 2 474716 #### [facility] [address] [place] [address] Hematocrit (Bld) [Volume fraction] 43.9 % Normal 34.0-46.0 [facility] Comment on above: Performed By: #### 2 361314 #### [facility] [address] [place] [address] Hemoglobin (Bld) [Mass/Vol] 15.3 g/dL Normal 12.0-16.0 [facility] Comment on above: Performed By: #### 2 730682 #### [facility] [address] [place] [address] Lymphocytes (Bld) [#/Vol] 2.7 E9/L Normal 1.0-4.0 [facility] Comment on above: Performed By: #### 2 731566 #### [facility] [address] [place] [address] Lymphocytes/100 WBC (Bld) 34.3 % Normal 14.0-50.0 [facility] Comment on above: Performed By: #### 2 272204 #### [facility] [address] [place] [address] MCH (RBC) [Entitic mass] 34.1 pg High 27.0-34.0 [facility] Comment on above: Performed By: #### 2 535574 #### [facility] [address] [place] [address] MCHC (RBC) [Mass/Vol] 34.8 g/dL Normal 31.4-36.0 [facility] Comment on above: Performed By: #### 2 818515 #### [facility] [address] [place] [address] MCV (RBC) [Entitic vol] 97.9 fL Normal 80.0-100.0 [facility] Comment on above: Performed By: #### 2 977379 #### [facility] [address] [place] [address] Monocytes (Bld) [#/Vol] 0.3 E9/L Normal 0.2-1.0 [facility] Comment on above: Performed By: #### 2 836135 #### [facility] [address] [place] [address] Neutrophils (Bld) [#/Vol] 4.8 E9/L Normal 2.0-7.5 [facility] Comment on above: Performed By: #### 2 894597 #### [facility] [address] [place] [address] Neutrophils/100 WBC (Bld) 61.2 % Normal 36.0-75.0 [facility] Comment on above: Performed By: #### 2 041220 #### [facility] [address] [place] [address] Platelet mean volume (Bld) [Entitic vol] 8.5 fL Normal 6.4-10.8 [facility] Comment on above: Performed By: #### 2 049151 #### [facility] [address] [place] [address] Platelets (Bld) [#/Vol] 202.0 E9/L Normal 150.0-500.0 [facility] Comment on above: Performed By: #### 2 041957 #### [facility] [address] [place] [address] RBC (Bld) [#/Vol] 4.5 E12/L Normal 4.3-5.9 [facility] Comment on above: Performed By: #### 2 472779 #### [facility] [address] [place] [address] WBC corrected for nucl RBC Auto (Bld) [#/Vol] 7.9 E9/L Normal 4.0-11.0 [facility] Comment on above: Performed By: #### 2 750471 #### [facility] [address] [place] [address] CHEMISTRYOrdered By: SYSTEM SYSTEM on 06-30-2023 Amphetamines [...] for Treatmenton 06-11 Consent for Treatment [id number] FF Normal [facility] ED Note-Physicianon 06-30-19 24 ED Note-Physician Basic Information Time Seen: Isai Hall DOCharisma 06/30/2023 13:43 Chief Complaint Pt intoxicated. admits [...] 2 mg/mL Injection, 1 mg, IV Push [id number] [F], 50 mg, IV Push Haldol 5 mg/mL Injection, 5 mg, IntraMuscular NS 1000 ml Bolus, 1000 mL, IV Sodium Chloride 0.9% IV Paula 50 mL [F] 50 mL + [id number] [F] 100 mg, IV Piggyback Zofran 4 mg/2 mL Injection, 4 mg, IV Push Disposition Plan Patient Discharge Condition Stable Discharge Prescription List Prescriptions No active prescription medications Follow-up No qualifying data available Problem List/Past Medical History Ongoin (more content not included)... Normal [facility] Comment on above: Result Comment: Elec tronically Signed By: Isai Hall DO.ella\Date and Time Signed: 06/30/23 18:08 EDT Ethanolon 06-30-2023 Ethanol Lvl 437 mg/dL Abnormal <=11 [facility] Comment on above: Result Comment: Crit ical Result Verified by Repeat Analysis Critical Result [id number] Called to and read back by: LEXI EWING at: 06/30/2023 15:36:41 by:CALLIE Performed By: #### 2 [id number] #### [facility] [address] [place] [address] HEMATOLOGYOrdered By: SYSTEM SYSTEM on 06-30-2023 Basophils/100 [...] 06-30-2023 Albumin [Mass/Vol] 4.4 g/dL Normal 3.3-5.0 [facility] Comment on above: Performed By: #### 2 560878 #### [facility] [address] [place] [address] Albumin/Globulin (S) [Mass conc ratio] 1.2 Normal 1.1-2.2 [facility] Comment on above: Performed By: #### 2 142979 #### [facility] [address] [place] [address] ALP [Catalytic activity/Vol] 133 Int._Unit/L High 21-98 [facility] Comment on above: Performed By: #### 2 141423 #### [facility] [address] [place] [address] ALT No additional P-5'-P [Catalytic activity/Vol] 135 Int._Unit/L High 6-46 [facility] Comment on above: Performed By: #### 2 714178 #### [facility] [address] [place] [address] AST [Catalytic activity/Vol] 312 Int._Unit/L High 5-43 [facility] Comment on above: Performed By: #### 2 341783 #### [facility] [address] [place] [address] Bilirubin [Mass/Vol] 0.8 mg/dL Normal 0.0-1.1 [facility] Comment on above: Performed By: #### 2 276083 #### [facility] [address] [place] [address] Bilirubin.direct [Mass/Vol] 0.3 mg/dL Normal 0.0-0.4 [facility] Comment on above: Performed By: #### 2 287301 #### [facility] [address] [place] [address] Bilirubin.indirect [Mass or moles/Vol] 0.5 mg/dL Normal 0.1-0.9 [facility] Comment on above: Performed By: #### 2 670961 #### [facility] [address] [place] [address] Globulin (S) [Mass/Vol] 3.6 g/dL Normal 1.4-4.0 [facility] Comment on above: Performed By: #### 2 273663 #### [facility] [address] [place] [address] Protein [Mass/Vol] 8.0 g/dL High 6.0-7.8 [facility] Comment on above: Performed By: #### 2 546070 #### [facility] [address] [place] [address] Pre-Arrival Noteon Pre-Arrival Note Normal [facility] Progress Note-Nurseon 2023 Progress Note-Nurse Pt still resting. no outbursts Normal [facility] Progress Note-Nurse Pt resting and no lo nger belligerent Normal [facility] Progress Note-Nurse Pt accidentally ripp ed out iv. will not keep vital equipment attached. Normal [facility] Progress Note-Nurse not leaving vitals machine on. will wait til pt more calm to leave equipment on Normal [facility] SEROLOGYOrdered By: Ori Otero on 06-30-2023 Beta HCG ( test) Ql Negative (06/30/23 2:42 PM) Normal [facility] Man Sero U Drug Screenon 06-30-2023 Amphetamines Screen method >1000 ng/mL Ql (U) Negative Normal NEGATIVE [facility] Comment on above: Result Comment: Nega tive Cutoff: <1000 ng/mL Performed By: #### 2 [id number] ####[facility] [address] [place] [address] Barbiturates Screen Ql (U) Negative Normal NEGATIVE [facility] Comment on above: Result Comment: Nega tive Cutoff: <200 ng/mL Performed By: #### 2 [id number] ####[facility] [address] [facility] [place] [address] Benzodiazepines Ql (U) Negative Normal NEGATIVE [facility] Comment on above: Result Comment: Nega tive Cutoff: <200 ng/mL Performed By: #### 2 557952 ####[facility] [address] [place] [address] Cannabinoids Screen Ql (U) Negative Normal NEGATIVE [facility] Comment on above: Result Comment: Nega tive Cutoff: <50 ng/mL Performed By: #### 2 270445 ####[facility] [address] [place] [address] Cocaine Ql (U) Negative Normal NEGATIVE [facility] Comment on above: Result Comment: Nega tive Cutoff: <300 ng/mL Performed By: #### 2 698483 ####[facility] [address] [place] [address] Opiates Screen Ql (U) Negative Normal NEGATIVE Fis [facility] Comment on above: Result Comment: Nega tive Cutoff: <300 ng/mL Performed By: #### 2 832263 ####[facility] [address] [place] [address] Phencyclidine Screen method >25 ng/mL Ql (U) Negative Normal NEGATIVE [facility] Comment on above: Result Comment: Nega tive Cutoff: <25 ng/mL These drug screen results are to be used for medical (i.e., treatment) purposes only. Unconfirmed drug screening results must not be used for non-medical purposes (e.g., employment testing, legal testing). Performed By: #### 2 760243 ####[facility] [address] [place] [address] U Fentanyl Positive Abnormal NEGATIVE [facility] Comment on above: Result Comment: Crit [...] testing, legal testing). Performed By: #### 2 [id number] ####[facility] [address] [place] [address] UA with Cult Rflxon 06-30-19 24 Bilirubin Ql (U) Negative Normal Negative [facility] Comment on above: Performed By: #### 4 [id number] #### [facility] [address] [place] [address] Clarity (U) Clear Normal Clear [facility] Comment on above: Performed By: #### 4 [id number] #### [facility] [address] [place] [address] Color (U) Colorless Abnormal Yellow [facility] Comment on above: Result Comment: Micr oscopic readings are only performed on those samples that meet specific criteria set forth by [facility]. Performed By: #### 4 [id number] #### [facility] [address] [place] [address] Glucose Ql (U) Negative Normal Negative [facility] Comment on above: Performed By: #### 4 [id number] #### [facility] [address] [place] [address] Hemoglobin Auto test strip (U) [Mass/Vol] Negative Normal Negative [facility] Comment on above: Performed By: #### 4 [id number] #### [facility] [address] [place] [address] Ketones Auto test strip Ql (U) Negative Normal Negative [facility] Comment on above: Performed By: #### 4 [id number] #### [facility] [address] [place] [address] Leukocyte esterase Auto test strip Ql (U) Negative Normal Negative [facility] Comment on above: Performed By: #### 4 [id number] #### [facility] [address] [place] [address] Nitrite Auto test strip Ql (U) Negative Normal Negative [facility] Comment on above: Performed By: #### 4 [id number] #### [facility] [address] [place] [address] pH (U) 6.0 [pH] Invalid Interpretation Code 5.0-9.0 [facility] Comment on above: Performed By: #### 4 [id number] #### [facility] [address] [place] [address] Protein Ql (U) Negative Normal Negative [facility] Comment on above: Performed By: #### 4 [id number] #### [facility] [address] [place] [address] Specific gravity (U) [Rel density] 1.004 Invalid Interpretation Code 1.005-1.030 [facility] Comment on above: Performed By: #### 4 [id number] #### [facility] [address] [place] [address] Urobilinogen (U) [Mass/Vol] Negative Normal Negative [facility] Comment on above: Performed By: #### 4 [id number] #### [facility] [address] [place] [address] Type of Urine collection method Clean Catch Normal [facility] Comment on above: Performed By: #### 4 [id number] #### [facility] [address] [place] [address] URINALYSISOrdered By: SYSTEM SYSTEM on 06-30-2023 Bilirubin Ql (U) Negative Normal Negativemg/ d L [facility] UA Auto SS Clarity (U) Clear (06/30/23 2:47 PM) Normal Clear [facility] UA Auto SS Color (U) Colorless 3 *ABN* (06/30/23 2:47 PM) Invalid Interpretation Code Yellow [facility] UA Auto SS Comment on above: Interpretive Data: M icroscopic readings are only performed on those samples that meet specific criteria set forth by [facility]. Glucose Ql (U) Negative Normal Negativemg/d [...] 06-30-2023 eGFR 123 mL/min/1.73 m2 Normal >=59 [facility] Comment on above: Order Comment: Order added by Discern Expert. Performed By: #### 1 [id number] #### [facility] [address] [place] [address] C Urineon 06-20-2023 Bacteria identified Cx Nom (U) Normal [facility] Comment on above: Performed By: #### 2 002030 ####[facility] [address] [place] [address] Chlam/GC/Trich,NAAon 024 C. trachomatis rRNA MOISES+probe Ql (Unsp spec) Negative Invalid Interpretation Code Negative [facility] Comment on above: Performed By: #### 1 [id number], [id number] ####[address] [address] N. gonorrhoeae rRNA MOISES+probe Ql (Unsp spec) Negative Invalid Interpretation Code Negative [facility] Comment on above: Performed By: #### 1 [id number], [id number] ####[address] [address] T. vaginalis rRNA MOISES+probe Ql (Unsp spec) Positive Abnormal Negative [facility] Comment on above: Result Comment: Perf ormed at: =G [facility] [address] JESSIKA Lunsford [id number] MD Pete Norman Performed By: #### 1 [id number], [id number] ####[address] [address] Vaginitis/Vaginosis, DNA Pro beon 06-20-2023 Melvin sp rRNA Probe Ql (Vag fld) Negative Invalid Interpretation Code Negative [facility] Comment on above: Performed By: #### 1 [id number], [id number] ####[address] [address] G. vaginalis rRNA Probe Ql (Genital specimen) Positive Abnormal Negative [facility] Comment on above: Performed By: #### 1 [id number], [id number] ####[address] [place] [address] T. vaginalis rRNA Probe Ql (Genital specimen) Positive Abnormal Negative [facility] Comment on above: Result Comment: Perf ormed at: [facility] [address] [place], [place] [id number] PhD Sriram Arceo Performed By: #### 1 [id number], [id number] ####[address] [place] [address] Ambulatory Visit Summaryon 0 06-17-2023 Ambulatory Visit Summary Normal [facility] Family Medicine Office/Clini c Noteon 05-06-2024 Family Medicine Office/Clinic Note Normal [facility] Comment on above: Result Comment: Elec tronically Signed By: Rainer HARO, Mike Rushing\.br\Date and Time Signed: 06/17/23 16:06 EDT Patient Educationon 06-17-19 Patient Education Normal [facility] C Urineon 06-05-2023 Bacteria identified Cx Nom (U) Normal [facility] Comment on above: Performed By: #### 4 [id number], [id number] ####[facility] [address] [place] [address] Discharge Instructionson Discharge Instructions [id number] F Normal [facility] ED Clinical Summaryon 2023 ED Clinical Summary Normal [facility] ED Note-Physicianon 06-04-19 ED Note-Physician Normal [facility] Comment on above: Result Comment: Elec tronically Signed By: Elliott Hicks PA-C\.br\Date and Time Signed: 06/03/23 23:01 EDT\.br\Electronically Co-Signed By: Kerry Linton DO\.br\Date and Time Co-Signed: 06/03/23 23:19 EDT ED Patient Education Noteon 06-04-2023 ED Patient Education Note Normal [facility] ED Patient Summaryon ED Patient Summary Normal [facility] B hCG Qualon 06-03-2023 Beta HCG ( test) Ql Negative Normal [facility] Comment on above: Order Comment: Phleb Lorie attempted to draw and was unsuccessful, phleb Diamante is on her way to draw. [id number] 06/03/2023 21:06:55 EDT Performed By: #### 2 [id number], 6010303, 9392814, 6847389, 4531112, 85928167 ####[facility] [address] [place] [address] BMPon 06-03-2023 Anion gap [Moles/Vol] 9 mmol/L Normal 6-16 Fis her [facility] Comment on above: Performed By: #### 2 4621254, 6511655, 8736076, 7592789, 2968893, 29408584 ####[facility] [address] [place] [address] Calcium [Mass/Vol] 8.9 mg/dL Normal 8.9-11.1 [facility] Comment on above: Performed By: #### 2 6101314, 5699703, 8058181, 7097818, 5790388, 28352755 ####[facility] [address] [place] [address] Chloride [Moles/Vol] 108 mmol/L Normal 101-111 [facility] Comment on above: Performed By: #### 2 5497726, 0605295, 8010771, 7127294, 0701106, 61945622 ####[facility] [address] [place] [address] CO2 [Moles/Vol] 28 mmol/L Normal 21-31 [facility] Comment on above: Performed By: #### 2 2245543, 4039179, 7287944, 7951866, 9905528, 00201169 ####[facility] [address] [place] [address] Creatinine [Mass/Vol] 0.6 mg/dL Normal 0.5-1.3 [facility] Comment on above: Performed By: #### 2 2687165, 9938443, 1174548, 9249768, 1901471, 62355113 ####[facility] [address] [place] [address] Glucose [Mass/Vol] 89 mg/dL Normal 55-199 [facility] Comment on above: Performed By: #### 2 4814340, 1848677, 6802152, 4585361, 4309105, 43090529 ####[facility] [address] [place] [address] Potassium [Moles/Vol] 4.0 mmol/L Normal 3.5-5.3 [facility] Comment on above: Performed By: #### 2 7323959, 1907331, 9346900, 1415554, 9092157, 49927900 ####[facility] [address] [place] [address] Sodium [Moles/Vol] 141 mmol/L Normal 135-145 [facility] Comment on above: Performed By: #### 2 1691693, 1685875, 8957466, 0554039, 0485414, 93551806 ####[facility] [address] [place] [address] Urea nitrogen [Mass/Vol] mg/dL Low 5-21 [facility] Comment on above: Performed By: #### 2 0215451, 3440229, 4091392, 5602017, 6517955, 11885951 ####[facility] [address] [place] [address] Urea nitrogen/Creatinine [Mass ratio] 7 No Units Low 10-20 [facility] Comment on above: Performed By: #### 2 0230652, 0245297, 9072940, 7434602, 7721463, 82991556 ####[facility] [address] [place] [address] CBC w/ Auto Diffon 4 Basophils/100 WBC (Bld) 0.9 % Normal 0.0-2.0 [facility] Comment on above: Performed By: #### 2 4987656, 9773087, 3089068, 2229470, 5467613, 23028344 ####[facility] [address] [place] [address] Basophils/Leukocytes Auto (Bld) [Pure # fraction] 0.0 E9/L Normal 0.0-0.2 [facility] Comment on above: Performed By: #### 2 3779363, 0430154, 8108342, 3675904, 3546584, 62835512 ####[facility] [address] [place] [address] Eosinophils (Bld) [#/Vol] 0.0 E9/L Normal 0.0-0.5 [facility] Comment on above: Performed By: #### 2 9651655, 7722988, 0245365, 6092728, 3552638, 42670962 ####[address] [address] Eosinophils/100 WBC (Bld) 0.7 % Normal 0.0-8.0 [facility] Comment on above: Performed By: #### 2 7590715, 4912966, 3302997, 1418460, 2782707, 98985080 ####[place] [address] Erythrocyte distribution width (RBC) [Ratio] 13.8 % Normal 10.9-14.2 [facility] Comment on above: Performed By: #### 2 8869631, 6054510, 9937697, 7092104, 2207469, 58842654 ####[place] Hematocrit (Bld) [Volume fraction] 39.2 % Normal 34.0-46.0 [facility] Comment on above: Performed By: #### 2 0215059, 0483082, 5040200, 4668024, 4907793, 26091204 ####[address] [address] Hemoglobin (Bld) [Mass/Vol] 13.0 g/dL Normal 12.0-16.0 [facility] Comment on above: Performed By: #### 2 1857729, 3753528, 0248759, 8124680, 4886672, 90665951 ####[address] [address] Lymphocytes (Bld) [#/Vol] 1.7 E9/L Normal 1.0-4.0 [facility] Comment on above: Performed By: #### 2 4051134, 9222341, 6789903, 2771545, 3295555, 96778778 ####[place] [address] Lymphocytes/100 WBC (Bld) 37.8 % Normal 14.0-50.0 [facility] Comment on above: Performed By: #### 2 3102786, 2080459, 4263229, 5267549, 7461227, 36112373 ####[address] [address] MCH (RBC) [Entitic mass] 33.5 pg Normal 27.0-34.0 [facility] Comment on above: Performed By: #### 2 1329505, 2625144, 4864188, 2871877, 9454630, 31013030 ####[place] [address] MCHC (RBC) [Mass/Vol] 33.2 g/dL Normal 31.4-36.0 [facility] Comment on above: Performed By: #### 2 6798596, 5847706, 7384793, 2532526, 5232989, 96950342 ####[address] [address] MCV (RBC) [Entitic vol] 100.9 fL High 80.0-100.0 [facility] Comment on above: Performed By: #### 2 9763704, 4702419, 3947369, 5146899, 6932493, 04445233 ####[address] [address] Monocytes (Bld) [#/Vol] 0.3 E9/L Normal 0.2-1.0 [facility] Comment on above: Performed By: #### 2 2817344, 2176152, 6466872, 8721067, 5758159, 03431542 ####[address] [address] Neutrophils (Bld) [#/Vol] 2.5 E9/L Normal 2.0-7.5 [facility] Comment on above: Performed By: #### 2 9166221, 7504543, 7565296, 5914356, 6421625, 45284392 ####[address] [place] [address] Neutrophils/100 WBC (Bld) 53.9 % Normal 36.0-75.0 [facility] Comment on above: Performed By: #### 2 6347426, 1076131, 3424752, 0448615, 1492828, 53655261 ####[address] [place] [address] Platelet 149.0 E9/L Low 150.0-500.0 [facility] Comment on above: Performed By: #### 2 7007894, 8466977, 7352571, 0159610, 4124366, 91525744 ####[address] [address] Platelet mean volume (Bld) [Entitic vol] 8.3 fL Normal 6.4-10.8 [facility] Comment on above: Performed By: #### 2 9552121, 4685614, 5895874, 8049568, 1247619, 41134557 ####[address] [address] RBC (Bld) [#/Vol] 3.9 E12/L Low 4.3-5.9 [facility] Comment on above: Performed By: #### 2 7233182, 3694893, 5127638, 0003917, 7913109, 84845752 ####[address] [address] WBC corrected for nucl RBC Auto (Bld) [#/Vol] 4.6 E9/L Normal 4.0-11.0 [facility] Comment on above: Performed By: #### 2 2339953, 9098792, 4621666, 1438327, 5901581, 97730611 ####[address] [address] CHEMISTRYOrdered By: SYSTEM SYSTEM on 06-03-2023 Albumin [...] for Treatmenton 05-13 Consent for Treatment [id number] F Normal [facility] HEMATOLOGYOrdered By: Arlene Contreras on 06-03-2023 Basophils/100 [...] 06-03-2023 Albumin [Mass/Vol] 4.0 g/dL Normal 3.3-5.0 [facility] Comment on above: Performed By: #### 2 6781622, 3280829, 4860854, 0294866, 1557106, 17748635 ####[facility] [address] [place] [address] Albumin/Globulin (S) [Mass conc ratio] 1.3 Normal 1.1-2.2 [facility] Comment on above: Performed By: #### 2 2736277, 5492165, 4741434, 1805003, 7481855, 66886846 ####[address] [place] [address] ALP [Catalytic activity/Vol] 133 Int._Unit/L High 21-98 [facility] Comment on above: Performed By: #### 2 9523793, 0337071, 1942976, 2111844, 9459883, 40006275 ####[facility] [address] [place] [address] ALT No additional P-5'-P [Catalytic activity/Vol] 131 Int._Unit/L High 6-46 [facility] Comment on above: Performed By: #### 2 6882624, 2258343, 6052087, 0612078, 5275323, 26827031 ####[address] [address] AST [Catalytic activity/Vol] 192 Int._Unit/L High 5-43 [facility] Comment on above: Performed By: #### 2 1023570, 6143615, 8506571, 6323579, 9871921, 79765839 ####[address] [address] Bilirubin [Mass/Vol] 0.4 mg/dL Normal 0.0-1.1 [facility] Comment on above: Performed By: #### 2 4175933, 4006425, 7726752, 7184635, 0192038, 51436267 ####[place] [address] Bilirubin.direct [Mass/Vol] 0.1 mg/dL Normal 0.0-0.4 [facility] Comment on above: Performed By: #### 2 9437561, 2551920, 9916975, 7854473, 5865982, 98309058 ####[place] [address] Bilirubin.indirect [Mass or moles/Vol] 0.3 mg/dL Normal 0.1-0.9 [facility] Comment on above: Performed By: #### 2 7495691, 7403596, 6436694, 2500582, 0879673, 39254284 ####[address] [address] Globulin (S) [Mass/Vol] 3.1 g/dL Normal 1.4-4.0 [facility] Comment on above: Performed By: #### 2 8890358, 2819768, 7614042, 7654472, 3520424, 38566038 ####[address] [address] Protein [Mass/Vol] 7.1 g/dL Normal 6.0-7.8 [facility] Comment on above: Performed By: #### 2 8660664, 3637880, 3606370, 0716689, 8126969, 95417184 ####[facility] [address] [place] [address] Lipase Levelon 06-03-2023 Lipase [Catalytic activity/Vol] 25 U/L Normal 13-58 [facility] Comment on above: Performed By: #### 2 0569971, 8616700, 8647408, 2064252, 6915991, 56499949 ####[facility] [address] [place] [address] SEROLOGYOrdered By: Domitila gaffney on 06-03-2023 Beta HCG ( test) Ql Negative (06/03/23 9:12 PM) Normal [facility] Man Sero UA with Cult Rflxon 06-03-19 24 Bacteria Auto Ql (U) 1+ [id number] Abnormal Trace [facility] Comment on above: Performed By: #### 4 263986844, 0525565 ####[address] [address] Bilirubin Ql (U) Negative Normal Negative [facility] Comment on above: Performed By: #### 4 701364247, 4187685 ####[address] [address] Clarity (U) Clear Normal Clear [facility] Comment on above: Performed By: #### 4 179021287, 0591526 ####[address] [address] Color (U) Light-Yellow Normal Yellow [facility] Comment on above: Result Comment: Micr oscopic readings are only performed on those samples that meet specific criteria set forth by [facility]. Performed By: #### 4 562716268, 2674175 ####[address] [address] Epithelial cells.squamous Auto (Urine sed) [#/Area] 0-2 Normal 0-2 [facility] Comment on above: Performed By: #### 4 753408224, 4722284 ####[address] [place] [address] Glucose Ql (U) Negative Normal Negative [facility] Comment on above: Performed By: #### 4 727997042, 5876434 ####[facility] [address] [place] [address] Hemoglobin Auto test strip (U) [Mass/Vol] Trace Abnormal Negative [facility] Comment on above: Performed By: #### 4 883280624, 0565539 ####[address] [address] Ketones Auto test strip Ql (U) Negative Normal Negative [facility] Comment on above: Performed By: #### 4 667669202, 5072198 ####[address] [address] Leukocyte esterase Auto test strip Ql (U) 250 Oracio/uL Abnormal Negative [facility] Comment on above: Performed By: #### 4 739896808, 1125349 ####[address] [address] Mucus Auto Ql (U) Trace Normal Negative [facility] Comment on above: Performed By: #### 4 158587835, 4293885 ####[address] [address] Nitrite Auto test strip Ql (U) Negative Normal Negative [facility] Comment on above: Performed By: #### 4 144297915, 5249989 ####[address] [address] pH (U) 6.0 [pH] Invalid Interpretation Code 5.0-9.0 [facility] Comment on above: Performed By: #### 4 818425969, 5561658 ####[address] [address] Protein Ql (U) Negative Normal Negative [facility] Comment on above: Performed By: #### 4 128341083, 2612708 ####[address] [address] RBC Ql (U) 0-3 Normal 0-3 [facility] Comment on above: Performed By: #### 4 759233906, 4706122 ####[place] [address] Specific gravity (U) [Rel density] 1.005 Invalid Interpretation Code 1.005-1.030 [facility] Comment on above: Performed By: #### 4 330223045, 5307833 ####[place] [address] Urobilinogen (U) [Mass/Vol] Negative Normal Negative [facility] Comment on above: Performed By: #### 4 633790058, 5967149 ####[place] [address] WBC Auto (Urine sed) [#/Area] 16-25 Abnormal 0-5 [facility] Comment on above: Performed By: #### 4 635424220, 9425484 ####[place] [address] Type of Urine collection method Clean Catch Normal [facility] Comment on above: Performed By: #### 4 683326907, 4098977 ####[place] [address] URINALYSISOrdered By: SYSTEM SYSTEM on 06-03-2023 Bacteria Auto Ql (U) 1+ graded/HPF Invalid Interpretation Code Tracegraded/ HPF [facility] UA Auto SS Bilirubin Ql (U) Negative Normal Negativemg/ d L [facility] UA Auto SS Clarity (U) Clear (06/03/23 9:07 PM) Normal Clear [facility] UA Auto SS Color (U) Light-Yellow 1 (06/03/23 9:07 PM) Normal Yellow [facility] UA Auto SS Comment on above: Interpretive Data: M icroscopic readings are only performed on those samples that meet specific criteria set forth by [facility]. Epithelial cells.squamous Auto (Urine sed) [#/Area] 0-2 graded/HPF Normal 0-2graded/HP F [facility] UA Auto SS Glucose Ql (U) Negative Normal Negativemg/d L [facility] UA Auto SS Hemoglobin Auto test strip (U) [Mass/Vol] Trace mg/dL Invalid Interpretation Code Negativemg/d L [facility] UA Auto SS Ketones Auto test strip [...] 1.005 - 1.030 [facility] UA Auto SS Urobilinogen (U) [Mass/Vol] Negative Normal Negativemg/d L [facility] UA Auto SS WBC Auto (Urine sed) [#/Area] 16-25 graded/HPF Invalid Interpretation Code 0-5graded/HP F [facility] UA Auto SS URINALYSISOrdered By: Elliott carrero on 06-03-2023 UA Spec Desc Clean Catch (06/03/23 9:07 PM) Normal [facility] UA Auto SS eGFRon 06-03-2023 eGFR 123 mL/min/1.73 m2 Normal >=59 [facility] Comment on above: Order Comment: Order added by Discern Expert. Performed By: #### 2 4357729, 5413714, 1790385, 5253850, 1421743, 79882022 ####[facility] [address] [place] [address] ED Note-Physicianon 04-26-19 ED Note-Physician [id number] F Normal [facility] Alanine aminotransferase [En zymatic activity/volume] in Serum or PlasmaOrdered By: Diane Paez on 04-25-2023 ALT [Catalytic activity/Vol] 221 U/L High 7-52 [facility] Comment on above: Performed By: #### L IPASE, BMP, HEPATIC, HCGQUAL, CBC #### [facility] [address] [place] [address] Albumin [Mass/volume] in Ser um or Plasma by Bromocresol green (BCG) dye binding methoOrdered By: Diane Paez on 04-25-2023 Albumin BCG dye [Mass/Vol] 4.5 g/dL 3.5-5.7 [facility] Alkaline phosphatase [Enzyma tic activity/volume] in Serum or PlasmaOrdered By: Diane Paez on 04-25-2023 ALP [Catalytic activity/Vol] 94 U/L Normal 34-104 [facility] Comment on above: Performed By: #### L IPASE, BMP, HEPATIC, HCGQUAL, CBC #### [facility] [address] [place] [address] Aspartate aminotransferase [ Enzymatic activity/volume] in Serum or PlasmaOrdered By: Diane Paez on 04-25-2023 AST [Catalytic activity/Vol] 281 U/L High 13-39 [facility] Comment on above: Performed By: #### L IPASE, BMP, HEPATIC, HCGQUAL, CBC #### [facility] [address] [place] [address] Automated basophil %Ordered By: Diane Paez on 04-25-2023 Basophils/100 WBC (Bld) 1.0 % Normal . [facility] Comment on above: Performed By: #### L IPASE, BMP, HEPATIC, HCGQUAL, CBC #### [facility] [address] [place] [address] Automated basophil countOrde red By: Diane Paez on 04-25-2023 Basophils (Bld) [#/Vol] 0.0 10*3/uL Normal 0.0-0.2 [facility] Comment on above: Result Comment: PERF ORMED BY: [place] [address] PATHOLOGIST [employer] LEE CARDOSO M.D. Performed By: #### L IPASE, BMP, HEPATIC, HCGQUAL, CBC #### [address] Automated blood monocyte cou ntOrdered By: Diane Paez on 04-25-2023 Monocytes (Bld) [#/Vol] 0.2 10*3/uL Normal 0.0-0.8 [facility] Comment on above: Performed By: #### L IPASE, BMP, HEPATIC, HCGQUAL, CBC #### [address] Automated eosinophil %Ordere d By: Diane Paez on 04-25-2023 Eosinophils/100 WBC (Bld) 1.1 % Normal . [facility] Comment on above: Performed By: #### L IPASE, BMP, HEPATIC, HCGQUAL, CBC #### [address] Automated eosinophil countOr dered By: Diane Paez on 04-25-2023 Eosinophils (Bld) [#/Vol] 0.1 10*3/uL Normal 0.0-0.45 [facility] Comment on above: Performed By: #### L IPASE, BMP, HEPATIC, HCGQUAL, CBC #### [address] Automated erythrocytes count in urine sediment (number/area)Ordered By: Diane Paez on 04-25-2023 RBC Auto (Urine sed) [#/Area] 0-1 [HPF] 0-4 [facility] Automated leukocytes count i n urine sediment (number/area)Ordered By: Diane Paez on 04-25-2023 WBC Auto (Urine sed) [#/Area] 1-2 [HPF] 0-4 [facility] Automated monocyte %Ordered By: Diane Paez on 04-25-2023 Monocytes/100 WBC (Bld) 4.5 % Normal . [facility] Comment on above: Performed By: #### L IPASE, BMP, HEPATIC, HCGQUAL, CBC #### [address] Automated neutrophil %Ordere d By: Diane Paez on 04-25-2023 Neutrophils/100 WBC (Bld) 52.5 % Normal . [facility] Comment on above: Performed By: #### L IPASE, BMP, HEPATIC, HCGQUAL, CBC #### [address] Automated urine color determ inationOrdered By: Diane Paez on 04-25-2023 Color (U) Yellow Normal Yellow [facility] Comment on above: Order Comment: Name Collection Type:: Clean-Voided Midstream Performed By: #### E ODALIS, MG, CMP, CBC #### [address] Basic Metabolic Panelon 04-11 Creatinine Clr Calc Pharmacy 116.68 Normal [facility] Comment on above: Performed By: #### L IPASE, BMP, HEPATIC, HCGQUAL, CBC #### [address] GFR/1.73 sq M.predicted MDRD (S/P/Bld) [Vol rate/Area] mL/min/{1.73_m2} Normal [facility] Comment on above: Performed By: #### L IPASE, BMP, HEPATIC, HCGQUAL, CBC #### [address] Bilirubin Test strip Ql (U)O rdered By: Diane Paez on 04-25-2023 Bilirubin Ql (U) Negative Negative [facility] Bilirubin.direct [Mass/volum e] in Serum or PlasmaOrdered By: Diane Paez on 04-25-2023 Bilirubin.direct [Mass/Vol] 0.10 mg/dL 0.03-0.18 [facility] Bilirubin.total [Mass/volume ] in Serum or PlasmaOrdered By: Diane Paez on 04-25-2023 Bilirubin [Mass/Vol] 0.5 mg/dL Normal 0.3-1.[address] [facility] Comment on above: Performed By: #### L IPASE, BMP, HEPATIC, HCGQUAL, CBC #### [facility] [address] [place] [address] [place] Calcium [Mass/volume] in Ser um or PlasmaOrdered By: Diane Paez on 04-25-2023 Calcium [Mass/Vol] 8.9 mg/dL Normal 8.6-10.3 [facility] Comment on above: Performed By: #### L IPASE, BMP, HEPATIC, HCGQUAL, CBC #### [facility] [address] [place] [address] [place] Carbon dioxide, total [Moles /volume] in Serum or PlasmaOrdered By: Diane Paez on 04-25-2023 CO2 [Moles/Vol] 27.0 mmol/L Normal 21.0-31.0 [facility] Comment on above: Performed By: #### L IPASE, BMP, HEPATIC, HCGQUAL, CBC #### [place] [address] [place] Chloride [Moles/volume] in S marbella or PlasmaOrdered By: Diane Paez on 04-25-2023 Chloride [Moles/Vol] 100 mmol/L Normal 98-[address] [facility] Comment on above: Performed By: #### L IPASE, BMP, HEPATIC, HCGQUAL, CBC #### [address] Choriogonadotropin.beta subu nit [Units/volume] in Serum or PlasmaOrdered By: Diane Paez on 04-25-2023 HCG.beta subunit Qn Negative [facility] Complete Blood Count Auto Di ffon 04-25-2023 Mean Corpuscular HGB Conc 35.0 g/dL Normal 32.0-35.0 [facility] Comment on above: Performed By: #### L IPASE, BMP, HEPATIC, HCGQUAL, CBC #### [facility] [address] [place] [address] [place] Monocytes/100 WBC (Bld) 17.84 % Normal 0.00-20.00 [facility] Comment on above: Performed By: #### L IPASE, BMP, HEPATIC, HCGQUAL, CBC #### [facility] [address] NRBC% 0.2 /100{WBC} Normal 0-0.[address] [facility] Comment on above: Performed By: #### L IPASE, BMP, HEPATIC, HCGQUAL, CBC #### [facility] [address] Creatinine [Mass/volume] in Serum or PlasmaOrdered By: Diane Paez on 04-25-2023 Creatinine [Mass/Vol] 0.65 mg/dL Normal 0.60-1.20 [facility] Comment on above: Performed By: #### L IPASE, BMP, HEPATIC, HCGQUAL, CBC #### [facility] [address] [place] [address] [place] Dipstick and Microscopicon 0 04-25-2023 Appearance (U) Clear Normal Clear [facility] Comment on above: Order Comment: Name Collection Type:: Clean-Voided Midstream Performed By: #### E ODALIS, MG, CMP, CBC #### [address] Bacteria,Urine None Seen Normal None Seen [facility] Comment on above: Order Comment: Name Collection Type:: Clean-Voided Midstream Performed By: #### E ODALIS, MG, CMP, CBC #### [address] Bilirubin,Urine Negative Normal Negative [facility] Comment on above: Order Comment: Name Collection Type:: Clean-Voided Midstream Performed By: #### E ODALIS, MG, CMP, CBC #### [address] Glucose Ql (U) Normal Normal Normal [facility] Comment on above: Order Comment: Name Collection Type:: Clean-Voided Midstream Performed By: #### E ODALIS, MG, CMP, CBC #### [place] [address] [place] Hyaline Casts,Urine None Seen Normal 0-8 [facility] Comment on above: Order Comment: Name Collection Type:: Clean-Voided Midstream Result Comment: PERF ORMED BY: [place] [address] PATHOLOGIST [employer] LEE CARDOSO M.D. Performed By: #### E ODALIS, MG, CMP, CBC #### [address] Ketones Ql (U) Negative Normal Negative [facility] Comment on above: Order Comment: Name Collection Type:: Clean-Voided Midstream Performed By: #### E ODALIS, MG, CMP, CBC #### [address] Leukocyte esterase Test strip Ql (U) Negative Normal Negative [facility] Comment on above: Order Comment: Name Collection Type:: Clean-Voided Midstream Performed By: #### E ODALIS, MG, CMP, CBC #### [place] [address] [place] Nitrite,Urine Negative Normal Negative [facility] Comment on above: Order Comment: Name Collection Type:: Clean-Voided Midstream Performed By: #### E ODALIS, MG, CMP, CBC #### [place] [address] [place] Occult Blood,Urine Negative Normal Negative [facility] Comment on above: Order Comment: Name Collection Type:: Clean-Voided Midstream Result Comment: PERF ORMED BY: [place] [address] PATHOLOGIST [employer] LEE CARDOSO M.D. Performed By: #### E ODALIS, MG, CMP, CBC #### [place] [address] [place] Protein,Urine Trace High Negative [facility] Comment on above: Order Comment: Name Collection Type:: Clean-Voided Midstream Performed By: #### E ODALIS, MG, CMP, CBC #### [place] [address] [place] RBC LM.HPF (Urine sed) [#/Area] 0 /[HPF] Normal 0-4 [facility] Comment on above: Order Comment: Name Collection Type:: Clean-Voided Midstream Performed By: #### E ODALIS, MG, CMP, CBC #### [address] Specificy [place],Urine 1.006 Normal 1.001-1.030 [facility] Comment on above: Order Comment: Name Collection Type:: Clean-Voided Midstream Performed By: #### E ODALIS, MG, CMP, CBC #### [address] Squamous Epithelial Cell,Urine 0-1 Normal 0-2 [facility] Comment on above: Order Comment: Name Collection Type:: Clean-Voided Midstream Performed By: #### E ODALIS, MG, CMP, CBC #### [address] Urobilinogen,Urine Normal Normal Normal [facility] Comment on above: Order Comment: Name Collection Type:: Clean-Voided Midstream Performed By: #### E ODALIS, MG, CMP, CBC #### [address] WBC,Urine 1-2 Normal 0-4 [facility] Comment on above: Order Comment: Name Collection Type:: Clean-Voided Midstream Performed By: #### E ODALIS, MG, CMP, CBC #### [address] Erythrocyte distribution wid th [Ratio] by Automated countOrdered By: Diane Paez on 04-25-2023 Erythrocyte distribution width (RBC) [Ratio] 13.3 % Normal 11.9-15.3 [facility] Comment on above: Performed By: #### L IPASE, BMP, HEPATIC, HCGQUAL, CBC #### [facility] [address] [place] [address] Erythrocytes [#/volume] in B lood by Automated countOrdered By: Diane Paez on 04-25-2023 RBC (Bld) [#/Vol] 4.22 10*6/uL Normal 3.60-5.00 [facility] Comment on above: Performed By: #### L IPASE, BMP, HEPATIC, HCGQUAL, CBC #### [facility] [address] Glucose [Mass/volume] in Ser um or PlasmaOrdered By: Diane Paez on 04-25-2023 Glucose [Mass/Vol] 85 mg/dL Normal 70-100 [facility] Comment on above: ADA recommended refe rence rangeRandom Glucose Reference Range is dependent on time and content of last meal. Glucose of more than 200 mg/dL in a nonstressed, ambulatory subject supports the diagnosis of Diabetes Mellitus. Result Comment: [place] om Glucose Reference Range is dependent on time and content of last meal. Glucose of more than 200 mg/dL in a nonstressed, ambulatory subject supports the diagnosis of Diabetes Mellitus. ADA recommended reference range Performed By: #### L IPASE, BMP, HEPATIC, HCGQUAL, CBC #### [address] HCG,Qualitative Serumon 04-11 HCG,Qualitative Serum Negative Normal [facility] Comment on above: Result Comment: PERF ORMED BY: [place] [address] PATHOLOGIST [employer] LEE CARDOSO M.D. Performed By: #### E ODALIS, MG, CMP, CBC #### [address] Hematocrit [Volume Fraction] of Blood by Automated countOrdered By: Diane Paez on 04-25-2023 Hematocrit (Bld) [Volume fraction] 40.8 % Normal 34.0-46.4 [facility] Comment on above: Performed By: #### L IPASE, BMP, HEPATIC, HCGQUAL, CBC #### [facility] [address] [place] [address] [place] Hemoglobin [Mass/volume] in BloodOrdered By: Diane Paez on 04-25-2023 Hemoglobin (Bld) [Mass/Vol] 14.3 g/dL Normal 11.8-15.4 [facility] Comment on above: Performed By: #### L IPASE, BMP, HEPATIC, HCGQUAL, CBC #### [facility] [address] Hepatic Panelon 04-25-2023 Albumin [Mass/Vol] 4.5 g/dL Normal 3.5-5.7 [facility] Comment on above: Performed By: #### L IPASE, BMP, HEPATIC, HCGQUAL, CBC #### [facility] [address] Bilirubin,Indirect 0.4 mg/dL Normal [facility] Comment on above: Performed By: #### L IPASE, BMP, HEPATIC, HCGQUAL, CBC #### [address] Bilirubin.indirect [Mass/Vol] 0.10 mg/dL Normal 0.03-0.18 [facility] Comment on above: Performed By: #### L IPASE, BMP, HEPATIC, HCGQUAL, CBC #### [address] Ketones Auto test strip (U) [Mass/Vol]Ordered By: Diane Paez on 04-25-2023 Ketones (U) [Mass/Vol] Negative Negative [facility] Laboratory - UrinalysisOrder ed By: Diane Paez on 04-25-2023 Hyaline casts LM Ql (Urine sed) None seen [LPF] 0-8 [facility] Leukocytes [#/volume] correc jose for nucleated erythrocytes in Blood by Automated counOrdered By: Diane Paez on 04-25-2023 WBC corrected for nucl RBC Auto (Bld) [#/Vol] 4.7 10*3/uL 3.8-11.6 [facility] Leukocytes [#/volume] in Blo od by Automated countOrdered By: Diane Paez on 04-25-2023 WBC (Bld) [#/Vol] 4.7 10*3/uL Normal 3.8-11.6 [facility] Comment on above: Performed By: #### L IPASE, BMP, HEPATIC, HCGQUAL, CBC #### [facility] [address] [place] [address] Lipase [Enzymatic activity/v olume] in Serum or PlasmaOrdered By: Diane Paez on 04-25-2023 Lipase [Catalytic activity/Vol] 74.0 U/L Normal 11.0-82.0 [facility] Comment on above: Performed By: #### E ODALIS, MG, CMP, CBC #### [address] Lymphocytes [#/volume] in Bl ood by Automated countOrdered By: Diane Paez on 04-25-2023 Lymphocytes (Bld) [#/Vol] 1.9 10*3/uL Normal 1.00-4.8 [facility] Comment on above: Performed By: #### L IPASE, BMP, HEPATIC, HCGQUAL, CBC #### [address] Lymphocytes/100 leukocytes i n Blood by Automated countOrdered By: Diane Paez on 04-25-2023 Lymphocytes/100 WBC (Bld) 40.9 % Normal . [facility] Comment on above: Performed By: #### L IPASE, BMP, HEPATIC, HCGQUAL, CBC #### [address] MCH [Entitic mass] by Automa jose countOrdered By: Diane Paez on 04-25-2023 MCH (RBC) [Entitic mass] 33.9 pg Normal 24.7-34.3 [facility] Comment on above: Performed By: #### L IPASE, BMP, HEPATIC, HCGQUAL, CBC #### [address] MCHC Auto (RBC) [Mass/Vol]Or dered By: Diane Paez on 04-25-2023 MCHC (RBC) [Mass/Vol] 35.0 g/dL 32.0-35.0 [facility] MCV [Entitic volume] by Auto mated countOrdered By: Diane Paez on 04-25-2023 MCV (RBC) [Entitic vol] 96.8 fL Normal 80-100 [facility] Comment on above: Performed By: #### L IPASE, BMP, HEPATIC, HCGQUAL, CBC #### [facility] [address] [place] [address] [place] Monocyte distribution width [Entitic volume] in Blood by AutomatedOrdered By: Diane Paez on 04-25-2023 Monocyte distribution width Auto (Bld) [Entitic vol] 17.84 % 0.00-20.00 [facility] Neutrophils [#/volume] in Bl ood by Automated countOrdered By: Diane Paez on 04-25-2023 Neutrophils (Bld) [#/Vol] 2.5 10*3/uL Normal 1.8-7.7 [facility] Comment on above: Performed By: #### L IPASE, BMP, HEPATIC, HCGQUAL, CBC #### [facility] [address] Nitrite Test strip Ql (U)Ord ered By: Diane Paez on 04-25-2023 Nitrite Ql (U) Negative Negative [facility] No Panel InformationOrdered By: Diane Paez on 04-25-2023 Estimated GFR (CKD-EPI) > 60.0 mL/Min [facility] Creatinine Clearance (Chem 116.68 [facility] Nucleated erythrocytes [Pres ence] in Blood by Automated countOrdered By: Diane Paez on 04-25-2023 Nucleated RBC Auto Ql (Bld) 0.2 /100{WBC} 0-0.5 [facility] Platelet mean volume [Entiti c volume] in Blood by Automated countOrdered By: Diane Paez on 04-25-2023 Platelet mean volume (Bld) [Entitic vol] 8.7 fL Normal 6.3-10.7 [facility] Comment on above: Performed By: #### L IPASE, BMP, HEPATIC, HCGQUAL, CBC #### [facility] [address] [place] [address] [place] Platelets [#/volume] in Bloo d by Automated countOrdered By: Diane Paez on 04-25-2023 Platelets (Bld) [#/Vol] 146 10*3/uL Low 150-450 [facility] Comment on above: Performed By: #### L IPASE, BMP, HEPATIC, HCGQUAL, CBC #### [address] Potassium [Moles/volume] in Serum or PlasmaOrdered By: Diane Paez on 04-25-2023 Potassium [Moles/Vol] 4.0 mmol/L Normal 3.5-5.1 [facility] Comment on above: Performed By: #### L IPASE, BMP, HEPATIC, HCGQUAL, CBC #### [address] Protein Auto test strip (U) [Mass/Vol]Ordered By: Diane Paez on 04-25-2023 Protein (U) [Mass/Vol] Trace mg/dL Negative [facility] Protein [Mass/volume] in Ser um or PlasmaOrdered By: Diane Paez on 04-25-2023 Protein [Mass/Vol] 8.2 g/dL Normal 6.4-8.9 [facility] Comment on above: Performed By: #### L IPASE, BMP, HEPATIC, HCGQUAL, CBC #### [address] Serum globulin measurement b y calculation (mass/volume)Ordered By: Diane Paez on 04-25-2023 Globulin (S) [Mass/Vol] 3.7 g/dL [facility] Comment on above: Performed By: #### L IPASE, BMP, HEPATIC, HCGQUAL, CBC #### [facility] [address] [place] [address] Serum or plasma albumin/glob ulin mass ratioOrdered By: Diane Paez on 04-25-2023 Albumin/Globulin [Mass ratio] 1.2 {ratio} [facility] Comment on above: Performed By: #### L IPASE, BMP, HEPATIC, HCGQUAL, CBC #### [address] Serum or plasma anion gap de terminationOrdered By: Diane Paez on 04-25-2023 Anion gap [Moles/Vol] 16.0 mmol/L High 6.0-15.[address] [facility] Comment on above: Performed By: #### L IPASE, BMP, HEPATIC, HCGQUAL, CBC #### [facility] [address] [place] [address] Serum or plasma non-glucuron idated bilirubin measurement (mass/volume)Ordered By: Diane Paez on 04-25-2023 Bilirubin.indirect [Mass/Vol] 0.4 mg/dL [facility] Sodium [Moles/volume] in Ser um or PlasmaOrdered By: Diane Paez on 04-25-2023 Sodium [Moles/Vol] 139 mmol/L Normal 136-145 [facility] Comment on above: Performed By: #### L IPASE, BMP, HEPATIC, HCGQUAL, CBC #### [facility] [address] [place] [address] Specific gravity Auto test s trip (U) [Rel density]Ordered By: Diane Paez on 04-25-2023 Specific gravity (U) [Rel density] 1.006 1.001-1.030 [facility] Squamous epithelial cells de tection in urine sediment by light microscopyOrdered By: Diane Paez on 04-25-2023 Epithelial cells.squamous LM Ql (Urine sed) 0-1 [HPF] 0-2 [facility] Urea nitrogen [Mass/volume] in Serum or PlasmaOrdered By: Diane Paez on 04-25-2023 Urea nitrogen [Mass/Vol] 5 mg/dL Low 7-25 [facility] Comment on above: Performed By: #### L IPASE, BMP, HEPATIC, HCGQUAL, CBC #### [facility] [address] [place] [address] Urine bacteria detection by automated methodOrdered By: Diane Paez on 04-25-2023 Bacteria Auto Ql (U) None seen None Seen [facility] Urine clarity by refractomet ry automatedOrdered By: Diane Paez on 04-25-2023 Clarity Refractometry automated (U) Clear Clear [facility] Urine glucose measurement by automated test strip (mass/volume)Ordered By: Diane Paez on 04-25-2023 Glucose Auto test strip (U) [Mass/Vol] Normal mg/dL Normal [facility] Urine hemoglobin detection b y automated test stripOrdered By: Diane Paez on 04-25-2023 Hemoglobin Auto test strip Ql (U) Negative Negative [facility] Urine leukocyte esterase det ection by automated test stripOrdered By: Diane Paez on 04-25-2023 Leukocyte esterase Auto test strip Ql (U) Negative Negative [facility] Urine pH measurement by auto mated test stripOrdered By: Diane Paez on 04-25-2023 pH (U) 6.5 [pH] Normal 5.0-9.0 [facility] Comment on above: Order Comment: Name Collection Type:: Clean-Voided Midstream Performed By: #### E ODALIS, MG, CMP, CBC #### [address] Urobilinogen Auto test strip (U) [Mass/Vol]Ordered By: Diane Paez on 04-25-2023 Urobilinogen (U) [Mass/Vol] Normal mg/dL Normal [facility] BMPon 04-20-2023 Anion gap [Moles/Vol] 14 mmol/L Normal 6-16 [facility] Comment on above: Performed By: #### 2 936632, 4625471, 81715388, 4129329, 6024328, 3332720 ####[facility] [address] [place] [address] Calcium [Mass/Vol] 8.7 mg/dL Low 8.9-11.1 [facility] Comment on above: Performed By: #### 2 280409, 5143295, 10184006, 7886538, 0040630, 6192841 ####[facility] [address] [place] [address] Chloride [Moles/Vol] 107 mmol/L Normal 101-111 [facility] Comment on above: Performed By: #### 2 861102, 2826245, 20313454, 8038711, 4140294, 3961942 ####[facility] [address] [place] [address] CO2 [Moles/Vol] 26 mmol/L Normal 21-31 [facility] Comment on above: Performed By: #### 2 069610, 2358125, 95199540, 9670341, 7417986, 2920129 ####[facility] [address] [place] [address] Creatinine [Mass/Vol] 0.5 mg/dL Normal 0.5-1.3 [facility] Comment on above: Performed By: #### 2 787744, 2673977, 83468630, 2094765, 4660065, 3406676 ####[facility] [address] [place] [address] Glucose [Mass/Vol] 83 mg/dL Normal 55-199 [facility] Comment on above: Performed By: #### 2 202352, 8505280, 76834615, 1300461, 2418356, 4894340 ####[facility] [address] [place]Nthe [place] [address] Potassium [Moles/Vol] 3.8 mmol/L Normal 3.5-5.3 [facility] Comment on above: Performed By: #### 2 035164, 5850462, 99488129, 6635376, 3576200, 3964343 ####[facility] [address] [place] [address] Sodium [Moles/Vol] 143 mmol/L Normal 135-145 [facility] Comment on above: Performed By: #### 2 884668, 4486497, 50789376, 8150671, 2099945, 4985549 ####[facility] [address] [place] [address] Urea nitrogen [Mass/Vol] 8 mg/dL Normal 5-21 [facility] Comment on above: Performed By: #### 2 074965, 7350766, 57752667, 4670009, 1723485, 0755546 ####[facility] [address] [place] [address] Urea nitrogen/Creatinine [Mass ratio] 16 No Units Normal 10-20 [facility] Comment on above: Performed By: #### 2 255221, 8960571, 18966534, 4277775, 4005708, 2733345 ####[address] [address] CBC w/ Auto Diffon 4 Basophils/100 WBC (Bld) 1.1 % Normal 0.0-2.0 [facility] Comment on above: Performed By: #### 2 652439, 5177797, 50816257, 7183133, 2551865, 5557770 ####[address] [address] Basophils/Leukocytes Auto (Bld) [Pure # fraction] 0.1 E9/L Normal 0.0-0.2 [facility] Comment on above: Performed By: #### 2 110300, 0140913, 34575588, 2589433, 1053717, 9575618 ####[address] [address] Eosinophils (Bld) [#/Vol] 0.1 E9/L Normal 0.0-0.5 [facility] Comment on above: Performed By: #### 2 720013, 4577351, 33718032, 7005142, 5029285, 2640502 ####[address] [address] Eosinophils/100 WBC (Bld) 1.0 % Normal 0.0-8.0 [facility] Comment on above: Performed By: #### 2 131920, 0439435, 48167460, 5935313, 7746334, 3231889 ####[address] [address] Erythrocyte distribution width (RBC) [Ratio] 13.1 % Normal 10.9-14.2 [facility] Comment on above: Performed By: #### 2 311540, 8372906, 77552118, 7276877, 4494306, 7791605 ####[address] [place] [address] Hematocrit (Bld) [Volume fraction] 41.5 % Normal 34.0-46.0 [facility] Comment on above: Performed By: #### 2 312151, 9485660, 83208445, 3307271, 2718492, 1894507 ####[facility] [address] [place] [address] Hemoglobin (Bld) [Mass/Vol] 14.3 g/dL Normal 12.0-16.0 [facility] Comment on above: Performed By: #### 2 860514, 9014482, 14882862, 9790467, 1305212, 2561487 ####[place] [id number] Lymphocytes (Bld) [#/Vol] 2.4 E9/L Normal 1.0-4.0 [facility] Comment on above: Performed By: #### 2 126033, 8787735, 63192337, 8604284, 1144788, 3080291 ####[address] [address] Lymphocytes/100 WBC (Bld) 38.1 % Normal 14.0-50.0 [facility] Comment on above: Performed By: #### 2 807013, 6727228, 90503443, 4515009, 8711732, 0259549 ####[place] [address] MCH (RBC) [Entitic mass] 33.5 pg Normal 27.0-34.0 [facility] Comment on above: Performed By: #### 2 043052, 9667226, 29463913, 2027254, 6657203, 2112563 ####[address] [address] MCHC (RBC) [Mass/Vol] 34.5 g/dL Normal 31.4-36.0 [facility] Comment on above: Performed By: #### 2 505113, 2856273, 96289699, 6593126, 4786164, 6390499 ####[place] [address] [place] [address] MCV (RBC) [Entitic vol] 97.0 fL Normal 80.0-100.0 [facility] Comment on above: Performed By: #### 2 798203, 0851143, 55662043, 9179333, 1770639, 9509070 ####[address] [address] Monocytes (Bld) [#/Vol] 0.3 E9/L Normal 0.2-1.0 [facility] Comment on above: Performed By: #### 2 030860, 9868144, 52195312, 3884086, 7703227, 5336481 ####[address] [address] Neutrophils (Bld) [#/Vol] 3.4 E9/L Normal 2.0-7.5 [facility] Comment on above: Performed By: #### 2 798565, 6869029, 53523958, 5017493, 5049004, 8437262 ####[address] [address] Neutrophils/100 WBC (Bld) 54.6 % Normal 36.0-75.0 [facility] Comment on above: Performed By: #### 2 940008, 6745196, 49009779, 7271465, 2807548, 1886580 ####[address] [address] Platelet 192.0 E9/L Normal 150.0-500.0 [facility] Comment on above: Performed By: #### 2 745830, 1193049, 08567891, 4504165, 4435906, 2333722 ####[address] [address] Platelet mean volume (Bld) [Entitic vol] 7.8 fL Normal 6.4-10.8 [facility] Comment on above: Performed By: #### 2 129871, 6433555, 32353002, 5191089, 9369421, 5627749 ####[facility] [address] [place] [address] RBC (Bld) [#/Vol] 4.3 E12/L Normal 4.3-5.9 [facility] Comment on above: Performed By: #### 2 972359, 6182150, 20575133, 4938951, 6134126, 1913708 ####[facility] [address] [place] [address] WBC corrected for nucl RBC Auto (Bld) [#/Vol] 6.2 E9/L Normal 4.0-11.0 [facility] Comment on above: Performed By: #### 2 153436, 1055368, 77073526, 6159711, 3444272, 0442983 ####[facility] [address] [place] [address] Consent for Treatmenton Consent for Treatment [id number] FF Normal [facility] Discharge Instructionson Discharge Instructions [id number] FF Normal [facility] ED Clinical Summaryon 2023 ED Clinical Summary Normal [facility] ED Note-Nursingon 04-20-2023 ED Note-Nursing Normal [facility] ED Note-Physicianon 04-20-19 ED Note-Physician Normal [facility] Comment on above: Result Comment: Elec tronically Signed By: Elliott Hicks PA-C\.br\Date and Time Signed: 04/19/23 23:53 EST\.br\Electronically Co-Signed By: Kerry Linton DO.br\Date and Time Co-Signed: 04/20/23 05:01 EST ED Patient Education Noteon 04-20-2023 ED Patient Education Note Normal [facility] ED Patient Summaryon 024 ED Patient Summary Normal [facility] Ethanolon 04-20-2023 Ethanol Lvl 437 mg/dL Abnormal <=11 [facility] Comment on above: Result Comment: Crit ical Result Verified by Repeat AnalysisCritical Result [id number] Called to and read back by: DR. LINTON at: 04/19/2023 23:22:41 by:[id number] Performed By: #### 2 170106 ####[facility] [address] [place] [address] Hep Func Panelon 04-20-2023 Albumin [Mass/Vol] 4.3 g/dL Normal 3.3-5.0 [facility] Comment on above: Performed By: #### 2 978210, 3979277, 05397460, 6505628, 1511965, 9510161 ####[facility] [address] [place] [address] Albumin/Globulin (S) [Mass conc ratio] 1.3 Normal 1.1-2.2 [facility] Comment on above: Performed By: #### 2 624596, 3981876, 99438981, 0105257, 0567133, 1282881 ####[facility] [address] [place] [address] ALP [Catalytic activity/Vol] 96 Int._Unit/L Normal 21-98 [facility] Comment on above: Performed By: #### 2 146463, 8351246, 63315888, 2754868, 6001184, 5327168 ####[facility] [address] [place] [address] ALT No additional P-5'-P [Catalytic activity/Vol] 273 Int._Unit/L High 6-46 [facility] Comment on above: Performed By: #### 2 435149, 5843621, 63093553, 5308337, 9834077, 8079090 ####[facility] [address] [place] [address] AST [Catalytic activity/Vol] 356 Int._Unit/L High 5-43 [facility] Comment on above: Performed By: #### 2 679073, 4924860, 12203711, 4054234, 9790315, 9816395 ####[facility] [address] [place] [address] Bilirubin [Mass/Vol] 0.3 mg/dL Normal 0.0-1.1 [facility] Comment on above: Performed By: #### 2 339582, 3900517, 10646359, 0461940, 4104199, 8867909 ####[address] [address] Bilirubin.direct [Mass/Vol] 0.1 mg/dL Normal 0.0-0.4 [facility] Comment on above: Performed By: #### 2 183152, 0251712, 03015433, 7111165, 1751241, 2267941 ####[address] [address] Bilirubin.indirect [Mass or moles/Vol] 0.2 mg/dL Normal 0.1-0.9 [facility] Comment on above: Performed By: #### 2 854684, 8602055, 61186351, 3150299, 5881147, 5934990 ####[address] [address] Globulin (S) [Mass/Vol] 3.3 g/dL Normal 1.4-4.0 [facility] Comment on above: Performed By: #### 2 759905, 2646431, 52326868, 6196561, 1358625, 7776735 ####[address] [address] Protein [Mass/Vol] 7.6 g/dL Normal 6.0-7.8 [facility] Comment on above: Performed By: #### 2 192630, 4689642, 19123396, 8818634, 7580333, 9443952 ####[place] [address] [place] [address] Lipase Levelon 04-20-2023 Lipase [Catalytic activity/Vol] 63 U/L High 13-58 [facility] Comment on above: Performed By: #### 2 845440, 4388209, 49730166, 6748173, 7947574, 7183935 ####[facility] [address] [place] [address] Magnesiumon 04-20-2023 Magnesium [Mass/Vol] 2.0 mg/dL Normal 1.3-2.4 Fish er [facility] Comment on above: Performed By: #### 2 108218, 0818087, 45116306, 0860872, 8633015, 2507323 ####[facility] [address] [place] [address] Progress Note-Nurseon 2023 Progress Note-Nurse Zofran PO hold for n ow. Pt. eyes closed. No N/V . Normal [facility] U BetaHcg Qualon 04-20-2023 HCG.beta subunit (U) [Moles/Vol] Negative Normal [facility] Comment on above: Performed By: #### 2 3106551, 85976558 ####[facility] [address] [place] [address] U Drug Screenon 04-20-2023 Amphetamines Screen method >1000 ng/mL Ql (U) Negative Normal NEGATIVE [facility] Comment on above: Performed By: #### 2 855307 ####[address] [address] Barbiturates Screen Ql (U) Negative Normal NEGATIVE [facility] Comment on above: Performed By: #### 2 953108 ####[place] [address] [place] [address] Benzodiazepines Ql (U) Negative Normal NEGATIVE [facility] Comment on above: Performed By: #### 2 190427 ####[place] [address] [place] [address] Cannabinoids Screen Ql (U) Negative Normal NEGATIVE [facility] Comment on above: Performed By: #### 2 380695 ####[address] [address] Cocaine Ql (U) Negative Normal NEGATIVE [facility] Comment on above: Performed By: #### 2 074320 ####[facility] [address] [place] [address] Opiates Screen Ql (U) Negative Normal NEGATIVE Fis [facility] Comment on above: Performed By: #### 2 545762 ####[facility] [address] [place] [address] Phencyclidine Screen method >25 ng/mL Ql (U) Negative Normal NEGATIVE [facility] Comment on above: Performed By: #### 2 602223 ####[facility] [address] [place] [address] UA With Cult Reflexon 2023 Bilirubin Ql (U) Negative Normal Negative [facility] Comment on above: Performed By: #### 2 4357404, 56658090 ####[facility] [address] [place] [address] Clarity (U) CLEAR Normal Clear [facility] Comment on above: Performed By: #### 2 5086986, 24873611 ####[facility] [address] [place] [address] Color (U) STRAW Invalid Interpretation Code [facility] Comment on above: Performed By: #### 2 5136807, 98366966 ####[facility] [address] [place] [address] Epithelial cells.squamous LM.HPF (Urine sed) [#/Area] 0-2 Normal 0-2 [facility] Comment on above: Performed By: #### 2 5372376, 28033217 ####[facility] [address] [place] [address] Glucose Test strip (U) [Mass/Vol] Negative Normal Negative [facility] Comment on above: Performed By: #### 2 8190286, 79809028 ####[facility] [address] [place] [address] Hemoglobin Ql (U) Negative Normal Negative [facility] Comment on above: Performed By: #### 2 4201857, 40055099 ####[facility] [address] [place] [address] Ketones (U) [Mass/Vol] Negative Normal Negative [facility] Comment on above: Performed By: #### 2 0202670, 97663897 ####[facility] [address] [place] [address] [place].plasma/Lithiu m.RBC (Bld) [Mass ratio] 0-3 Normal 0-3 [facility] Comment on above: Performed By: #### 2 3216053, 22840538 ####[facility] [address] [place] [address] Nitrite Ql (U) Negative Normal Negative [facility] Comment on above: Performed By: #### 2 3472718, 70748789 ####[address] [address] pH (U) 7.0 [pH] Invalid Interpretation Code 5.0-9.0 [facility] Comment on above: Performed By: #### 2 3415498, 46105284 ####[address] [address] Protein (U) [Mass/Vol] Negative Normal Negative [facility] Comment on above: Performed By: #### 2 2927384, 33972281 ####[address] [address] Specific gravity (U) [Rel density] <=1.005 Invalid Interpretation Code 1.005-1.030 [facility] Comment on above: Performed By: #### 2 2696749, 83574683 ####[facility] [address] [place] [address] Type of Urine collection method Clean Catch Normal [facility] Comment on above: Performed By: #### 2 4001590, 97725651 ####[address] [address] Urobilinogen Qn (U) 0.2 {Surinder'U}/dL Normal 0.0-1.0 [facility] Comment on above: Performed By: #### 2 9596663, 03473758 ####[facility] [address] [place] [address] WBC Auto Ql (U) Negative Normal Negative [facility] Comment on above: Performed By: #### 2 3467381, 06893049 ####[facility] [address] [place] [address] WBC LM.HPF (Urine sed) [#/Area] 0-5 Normal 0-5 [facility] Comment on above: Performed By: #### 2 9908772, 51047447 ####[place] [address] [place] [address] eGFRon 04-20-2023 eGFR 128 mL/min/1.73 m2 Normal >=59 [facility] Comment on above: Order Comment: Order added by Discern Expert. Performed By: #### 2 526946, 1481541, 15240123, 5536484, 7042348, 6150581 ####[facility] [address] [place] [address] CHEMISTRYOrdered By: SYSTEM SYSTEM on 04-19-2023 Albumin [...] back by: DR. LINTON at: 04/19/2023 23:22:41 by:[id number] Globulin (S) [Mass/Vol] 3.3 g/dL Normal 1.4 [...] Remisol Heme Pre-Arrival Noteon Pre-Arrival Note Normal [facility] SEROLOGYOrdered By: Domitila gaffney on 04-19-2023 HCG.beta subunit (U) [Moles/Vol] Negative Normal [facility] Man Sero URINALYSISOrdered By: Domitila Granado on 04-19-2023 Bilirubin Ql (U) Negative (04/19/23 10:25 PM) Normal Negative [facility] UA Auto SS Clarity (U) Clear (04/19/23 10:25 PM) Normal Clear [facility] UA Auto SS Color (U) STRAW Invalid Interpretation Code [facility] UA Auto SS Epithelial cells.squamous LM.HPF (Urine sed) [#/Area] 0-2 /HPF Normal 0-2/HPF [facility] UA Aut o SS Glucose Test strip (U) [Mass/Vol] Negative (04/19/23 10:25 PM) Normal Negative [facility] UA Auto SS Hemoglobin Ql (U) Negative (04/19/23 10:25 PM) Normal Negative [facility] UA Auto SS Ketones (U) [Mass/Vol] Negative (04/19/23 10:25 PM) Normal Negative [facility] UA Auto SS [place].plasma/Lithiu m.RBC (Bld) [Mass ratio] 0-3 /HPF Normal 0-3/HPF [facility] UA Auto SS Nitrite Ql (U) Negative (04/19/23 10:25 PM) Normal Negative [facility] UA Auto SS pH (U) 7.0 *NA* (04/19/23 10:25 PM) Invalid Interpretation Code 5.0 - 9.0 [facility] UA Auto SS Protein (U) [Mass/Vol] Negative (04/19/23 10:25 PM) Normal Negative [facility] UA Auto SS Specific gravity (U) [Rel density] <=1.005 *NA* (04/19/23 10:25 PM) Invalid Interpretation Code 1.005 - 1.030 [facility] UA Auto SS UA Spec Desc Clean Catch (04/19/23 10:25 PM) Normal [facility] UA Auto SS Urobilinogen Qn (U) 0.3951724 {Surinder'U}/dL Normal 0.0 - 1.0 EU/dL [facility] UA Auto SS WBC Auto Ql (U) Negative (04/19/23 10:25 PM) Normal Negative [facility] UA Auto SS WBC LM.HPF (Urine sed) [#/Area] 0-5 /HPF Normal 0-5/HPF [facility] UA Auto SS ED Note-Physicianon 04-09-19 ED Note-Physician [id number] 2031 [id number] F Normal [facility] Alanine aminotransferase [En zymatic activity/volume] in Serum or PlasmaOrdered By: Eric Dooley on 04-08-2023 ALT [Catalytic activity/Vol] 169 U/L High 7-52 [facility] Comment on above: Performed By: #### C MP, LIPASE, CBC #### [address] Albumin [Mass/volume] in Ser um or Plasma by Bromocresol green (BCG) dye binding methoOrdered By: Eric Dooley on 04-08-2023 Albumin BCG dye [Mass/Vol] 4.1 g/dL 3.5-5.7 [facility] Alkaline phosphatase [Enzyma tic activity/volume] in Serum or PlasmaOrdered By: Eric Dooley on 04-08-2023 ALP [Catalytic activity/Vol] 66 U/L Normal 34-104 [facility] Comment on above: Performed By: #### C MP, LIPASE, CBC #### [address] Amylase [Enzymatic activity/ volume] in Serum or PlasmaOrdered By: Eric Dooley on 04-08-2023 Amylase [Catalytic activity/Vol] 70 U/L Normal 29-103 [facility] Comment on above: Performed By: #### C MP, LIPASE, CBC #### [address] Aspartate aminotransferase [ Enzymatic activity/volume] in Serum or PlasmaOrdered By: Eric Dooley on 04-08-2023 AST [Catalytic activity/Vol] 121 U/L High 13-39 [facility] Comment on above: Performed By: #### C MP, LIPASE, CBC #### [address] Automated basophil %Ordered By: Eric Dooley on 04-08-2023 Basophils/100 WBC (Bld) 0.8 % Normal . [facility] Comment on above: Performed By: #### C MP, LIPASE, CBC #### [address] Automated basophil countOrde red By: Eric Dooley on 04-08-2023 Basophils (Bld) [#/Vol] 0.0 10*3/uL Normal 0.0-0.2 [facility] Comment on above: Result Comment: PERF ORMED BY: [place] [address] PATHOLOGIST [employer] LEE CARDOSO M.D. Performed By: #### C MP, LIPASE, CBC #### [address] Automated blood monocyte cou ntOrdered By: Eric Dooley on 04-08-2023 Monocytes (Bld) [#/Vol] 0.3 10*3/uL Normal 0.0-0.8 [facility] Comment on above: Performed By: #### C MP, LIPASE, CBC #### [address] Automated eosinophil %Ordere d By: Eric Dooley on 04-08-2023 Eosinophils/100 WBC (Bld) 1.0 % Normal . [facility] Comment on above: Performed By: #### C MP, LIPASE, CBC #### [address] Automated eosinophil countOr dered By: Eric Dooley on 04-08-2023 Eosinophils (Bld) [#/Vol] 0.1 10*3/uL Normal 0.0-0.45 [facility] Comment on above: Performed By: #### C MP, LIPASE, CBC #### [address] Automated erythrocytes count in urine sediment (number/area)Ordered By: Eric Dooley on 04-08-2023 RBC Auto (Urine sed) [#/Area] 0-1 [HPF] 0-4 [facility] Automated leukocytes count i n urine sediment (number/area)Ordered By: Eric Dooley on 04-08-2023 WBC Auto (Urine sed) [#/Area] 5-9 [HPF] 0-4 [facility] Automated monocyte %Ordered By: Eric Dooley on 04-08-2023 Monocytes/100 WBC (Bld) 6.3 % Normal . [facility] Comment on above: Performed By: #### C MP, LIPASE, CBC #### [address] Automated neutrophil %Ordere d By: Eric Dooley on 04-08-2023 Neutrophils/100 WBC (Bld) 59.5 % Normal . [facility] Comment on above: Performed By: #### C MP, LIPASE, CBC #### [address] Automated urine color determ inationOrdered By: Eric Dooley on 04-08-2023 Color (U) Yellow Normal Yellow [facility] Comment on above: Order Comment: Name Collection Type:: Clean-Voided Midstream Performed By: #### C MP, LIPASE, CBC #### [address] Basic Metabolic Panelon 03-15 Creatinine Clr Calc Pharmacy 117.32 Normal [facility] Comment on above: Performed By: #### C MP, LIPASE, CBC #### [address] GFR/1.73 sq M.predicted MDRD (S/P/Bld) [Vol rate/Area] mL/min/{1.73_m2} Normal [facility] Comment on above: Performed By: #### C MP, LIPASE, CBC #### [address] Bilirubin Test strip Ql (U)O rdered By: Eric Dooley on 04-08-2023 Bilirubin Ql (U) Negative Negative [facility] Bilirubin.direct [Mass/volum e] in Serum or PlasmaOrdered By: Eric Dooley on 04-08-2023 Bilirubin.direct [Mass/Vol] 0.10 mg/dL 0.03-0.18 [facility] Bilirubin.total [Mass/volume ] in Serum or PlasmaOrdered By: Eric Dooley on 04-08-2023 Bilirubin [Mass/Vol] 0.4 mg/dL Normal 0.3-1.[address] [facility] Comment on above: Performed By: #### C MP, LIPASE, CBC #### [address] Calcium [Mass/volume] in Ser um or PlasmaOrdered By: Eric Dooley on 04-08-2023 Calcium [Mass/Vol] 8.9 mg/dL Normal 8.6-10.3 [facility] Comment on above: Performed By: #### C MP, LIPASE, CBC #### [address] Carbon dioxide, total [Moles /volume] in Serum or PlasmaOrdered By: Eric Dooley on 04-08-2023 CO2 [Moles/Vol] 20.2 mmol/L Low 21.0-31.0 [facility] Comment on above: Performed By: #### C MP, LIPASE, CBC #### [address] Chloride [Moles/volume] in S marbella or PlasmaOrdered By: Eric Dooley on 04-08-2023 Chloride [Moles/Vol] 108 mmol/L High 98-[address] [facility] Comment on above: Performed By: #### C MP, LIPASE, CBC #### [address] Complete Blood Count Auto Di ffon 04-08-2023 Mean Corpuscular HGB Conc 34.0 g/dL Normal 32.0-35.0 [facility] Comment on above: Performed By: #### C MP, LIPASE, CBC #### [place] [address] [place] Monocytes/100 WBC (Bld) 19.15 % Normal 0.00-20.00 [facility] Comment on above: Performed By: #### C MP, LIPASE, CBC #### [address] NRBC% 0.3 /100{WBC} Normal 0-0.[address] [facility] Comment on above: Performed By: #### C MP, LIPASE, CBC #### [place] [address] [place] Creatinine [Mass/volume] in Serum or PlasmaOrdered By: Eric Dooley on 04-08-2023 Creatinine [Mass/Vol] 0.65 mg/dL Normal 0.60-1.20 [facility] Comment on above: Performed By: #### C MP, LIPASE, CBC #### [place] [address] [place] Dipstick and Microscopicon 0 04-08-2023 Appearance (U) Clear Normal Clear [facility] Comment on above: Order Comment: Name Collection Type:: Clean-Voided Midstream Performed By: #### C MP, LIPASE, CBC #### [place] [address] [place] Bacteria,Urine None Seen Normal None Seen [facility] Comment on above: Order Comment: Name Collection Type:: Clean-Voided Midstream Performed By: #### C MP, LIPASE, CBC #### [place] [address] [place] Bilirubin,Urine Negative Normal Negative [facility] Comment on above: Order Comment: Name Collection Type:: Clean-Voided Midstream Performed By: #### C MP, LIPASE, CBC #### [place] [address] [place] Glucose Ql (U) Normal Normal Normal [facility] Comment on above: Order Comment: Name Collection Type:: Clean-Voided Midstream Performed By: #### C MP, LIPASE, CBC #### [place] [address] [place] Hyaline Casts,Urine 0-8 Normal 0-8 [facility] Comment on above: Order Comment: Name Collection Type:: Clean-Voided Midstream Performed By: #### C MP, LIPASE, CBC #### [place] [address] [place] Ketones Ql (U) Negative Normal Negative [facility] Comment on above: Order Comment: Name Collection Type:: Clean-Voided Midstream Performed By: #### C MP, LIPASE, CBC #### [address] Leukocyte esterase Test strip Ql (U) 1+ High Negative [facility] Comment on above: Order Comment: Name Collection Type:: Clean-Voided Midstream Performed By: #### C MP, LIPASE, CBC #### [place] [address] [place] Nitrite,Urine Negative Normal Negative [facility] Comment on above: Order Comment: Name Collection Type:: Clean-Voided Midstream Performed By: #### C MP, LIPASE, CBC #### [place] [id number] [place] Occult Blood,Urine Trace High Negative [facility] Comment on above: Order Comment: Name Collection Type:: Clean-Voided Midstream Performed By: #### C MP, LIPASE, CBC #### [place] [address] [place] Protein,Urine Negative Normal Negative [facility] Comment on above: Order Comment: Name Collection Type:: Clean-Voided Midstream Performed By: #### C MP, LIPASE, CBC #### [address] RBC LM.HPF (Urine sed) [#/Area] 0 /[HPF] Normal 0-4 [facility] Comment on above: Order Comment: Name Collection Type:: Clean-Voided Midstream Performed By: #### C MP, LIPASE, CBC #### [address] Specificy [place],Urine 1.017 Normal 1.001-1.030 [facility] Comment on above: Order Comment: Name Collection Type:: Clean-Voided Midstream Performed By: #### C MP, LIPASE, CBC #### [address] Squamous Epithelial Cell,Urine 0-1 Normal 0-2 [facility] Comment on above: Order Comment: Name Collection Type:: Clean-Voided Midstream Performed By: #### C MP, LIPASE, CBC #### [address] Urobilinogen,Urine Normal Normal Normal [facility] Comment on above: Order Comment: Name Collection Type:: Clean-Voided Midstream Performed By: #### C MP, LIPASE, CBC #### [address] WBC,Urine 5-9 High 0-4 [facility] Comment on above: Order Comment: Name Collection Type:: Clean-Voided Midstream Performed By: #### C MP, LIPASE, CBC #### [address] ED Note-Physicianon 04-08-19 ED Note-Physician [id number] 2011 [id number] F Normal [facility] Erythrocyte distribution wid th [Ratio] by Automated countOrdered By: Eric Dooley on 04-08-2023 Erythrocyte distribution width (RBC) [Ratio] 13.7 % Normal 11.9-15.3 [facility] Comment on above: Performed By: #### C MP, LIPASE, CBC #### [address] [place] [address] [place] Erythrocytes [#/volume] in B lood by Automated countOrdered By: Eric Dooley on 04-08-2023 RBC (Bld) [#/Vol] 4.61 10*6/uL Normal 3.60-5.00 [facility] Comment on above: Performed By: #### C MP, LIPASE, CBC #### [address] Ethanol [Mass/volume] in Ser um or PlasmaOrdered By: Eric Dooley on 04-08-2023 Ethanol [Mass/Vol] mg/dL Normal [facility] Comment on above: Performed By: #### C MP, LIPASE, CBC #### [address] Ethanol [Mass/Vol] TNP [facility] Comment on above: Test not performed Ethyl Alcohol Profileon 03-15 Percent Ethanol Not performed Normal [facility] Comment on above: Result Comment: PERF ORMED BY: [place] [address] PATHOLOGIST [employer] LEE CARDOSO M.D. Performed By: #### C MP, LIPASE, CBC #### [address] [address] Glucose [Mass/volume] in Ser um or PlasmaOrdered By: Eric Dooley on 04-08-2023 Glucose [Mass/Vol] 85 mg/dL Normal 70-100 [facility] Comment on above: ADA recommended refe rence rangeRandom Glucose Reference Range is dependent on time and content of last meal. Glucose of more than 200 mg/dL in a nonstressed, ambulatory subject supports the diagnosis of Diabetes Mellitus. Result Comment: [place] Glucose Reference Range is dependent on time and content of last meal. Glucose of more than 200 mg/dL in a nonstressed, ambulatory subject supports the diagnosis of Diabetes Mellitus. ADA recommended reference range Performed By: #### C MP, LIPASE, CBC #### [address] HCG ( test) IA.rapi d Ql (U)Ordered By: PROVIDER TEMP on 04-08-2023 HCG ( test) Ql (U) Negative [facility] HCG,Urineon 04-08-2023 Beta HCG ( test) Ql (U) Negative Normal [facility] Comment on above: Order Comment: Name Collection Type:: Clean-Voided Midstream Result Comment: PERF ORMED BY: [place] [address] PATHOLOGIST [employer] LEE CARDOSO M.D. Performed By: #### C MP, LIPASE, CBC #### [address] Hematocrit [Volume Fraction] of Blood by Automated countOrdered By: Eric Dooley on 04-08-2023 Hematocrit (Bld) [Volume fraction] 45.6 % Normal 34.0-46.4 [facility] Comment on above: Performed By: #### C MP, LIPASE, CBC #### [address] Hemoglobin [Mass/volume] in BloodOrdered By: Eric Dooley on 04-08-2023 Hemoglobin (Bld) [Mass/Vol] 15.5 g/dL High 11.8-15.4 [facility] Comment on above: Performed By: #### C MP, LIPASE, CBC #### [address] Hepatic Panelon 04-08-2023 Albumin [Mass/Vol] 4.1 g/dL Normal 3.5-5.7 [facility] Comment on above: Performed By: #### C MP, LIPASE, CBC #### [address] Bilirubin,Indirect 0.3 mg/dL Normal [facility] Comment on above: Performed By: #### C MP, LIPASE, CBC #### [address] Bilirubin.indirect [Mass/Vol] 0.10 mg/dL Normal 0.03-0.18 [facility] Comment on above: Performed By: #### C MP, LIPASE, CBC #### [facility] [address] Ketones Auto test strip (U) [Mass/Vol]Ordered By: Eric Dooley on 04-08-2023 Ketones (U) [Mass/Vol] Negative Negative [facility] Laboratory - UrinalysisOrder ed By: Eric Dooley on 04-08-2023 Hyaline casts LM Ql (Urine sed) 0-8 [LPF] 0-8 [facility] Leukocytes [#/volume] correc jose for nucleated erythrocytes in Blood by Automated counOrdered By: Eric Dooley on 04-08-2023 WBC corrected for nucl RBC Auto (Bld) [#/Vol] 5.1 10*3/uL 3.8-11.6 [facility] Leukocytes [#/volume] in Blo od by Automated countOrdered By: Eric Dooley on 04-08-2023 WBC (Bld) [#/Vol] 5.1 10*3/uL Normal 3.8-11.6 [facility] Comment on above: Performed By: #### C MP, LIPASE, CBC #### [facility] [address] [place] [address] Lipase [Enzymatic activity/v olume] in Serum or PlasmaOrdered By: Eric Dooley on 04-08-2023 Lipase [Catalytic activity/Vol] 68.0 U/L Normal 11.0-82.0 [facility] Comment on above: Result Comment: PERF ORMED BY: [place] [address] PATHOLOGIST [employer] LEE CARDOSO M.D. Performed By: #### C MP, LIPASE, CBC #### [facility] [address] [place] [address] [place] Lymphocytes [#/volume] in Bl ood by Automated countOrdered By: Eric Dooley on 04-08-2023 Lymphocytes (Bld) [#/Vol] 1.6 10*3/uL Normal 1.00-4.8 [facility] Comment on above: Performed By: #### C MP, LIPASE, CBC #### [facility] [address] [place] [address] [place] Lymphocytes/100 leukocytes i n Blood by Automated countOrdered By: Eric Dooley on 04-08-2023 Lymphocytes/100 WBC (Bld) 32.4 % Normal . [facility] Comment on above: Performed By: #### C MP, LIPASE, CBC #### [facility] [address] MCH [Entitic mass] by Automa jose countOrdered By: Eric Dooley on 04-08-2023 MCH (RBC) [Entitic mass] 33.6 pg Normal 24.7-34.3 [facility] Comment on above: Performed By: #### C MP, LIPASE, CBC #### [address] MCHC Auto (RBC) [Mass/Vol]Or dered By: Eric Dooley on 04-08-2023 MCHC (RBC) [Mass/Vol] 34.0 g/dL 32.0-35.0 [facility] MCV [Entitic volume] by Auto mated countOrdered By: Eric Dooley on 04-08-2023 MCV (RBC) [Entitic vol] 98.9 fL Normal 80-100 [facility] Comment on above: Performed By: #### C MP, LIPASE, CBC #### [address] Monocyte distribution width [Entitic volume] in Blood by AutomatedOrdered By: Eric Dooley on 04-08-2023 Monocyte distribution width Auto (Bld) [Entitic vol] 19.15 % 0.00-20.00 [facility] Neutrophils [#/volume] in Bl ood by Automated countOrdered By: Eric Dooley on 04-08-2023 Neutrophils (Bld) [#/Vol] 3.0 10*3/uL Normal 1.8-7.7 [facility] Comment on above: Performed By: #### C MP, LIPASE, CBC #### [address] Nitrite Test strip Ql (U)Ord ered By: Eric Dooley on 04-08-2023 Nitrite Ql (U) Negative Negative [facility] No Panel InformationOrdered By: Eric Dooley on 04-08-2023 Estimated GFR (CKD-EPI) > 60.0 mL/Min [facility] Creatinine Clearance (Chem 117.32 [facility] Nucleated erythrocytes [Pres ence] in Blood by Automated countOrdered By: Eric Dooley on 04-08-2023 Nucleated RBC Auto Ql (Bld) 0.3 /100{WBC} 0-0.5 [facility] Platelet mean volume [Entiti c volume] in Blood by Automated countOrdered By: Eric Dooley on 04-08-2023 Platelet mean volume (Bld) [Entitic vol] 8.6 fL Normal 6.3-10.7 [facility] Comment on above: Performed By: #### C MP, LIPASE, CBC #### [address] Platelets [#/volume] in Bloo d by Automated countOrdered By: Eric Dooley on 04-08-2023 Platelets (Bld) [#/Vol] 137 10*3/uL Low 150-450 [facility] Comment on above: Performed By: #### C MP, LIPASE, CBC #### [address] Potassium [Moles/volume] in Serum or PlasmaOrdered By: Eric Dooley on 04-08-2023 Potassium [Moles/Vol] 4.3 mmol/L Normal 3.5-5.1 [facility] Comment on above: Hemolysis is present at a level that could interfere with the result. Result Comment: Hemo lysis is present at a level that could interfere with the result. Performed By: #### C MP, LIPASE, CBC #### [address] Protein Auto test strip (U) [Mass/Vol]Ordered By: Eric Dooley on 04-08-2023 Protein (U) [Mass/Vol] Negative Negative [facility] Protein [Mass/volume] in Ser um or PlasmaOrdered By: Eric Dooley on 04-08-2023 Protein [Mass/Vol] 7.6 g/dL Normal 6.4-8.9 [facility] Comment on above: Performed By: #### C MP, LIPASE, CBC #### [address] Serum globulin measurement b y calculation (mass/volume)Ordered By: Eric Dooley on 04-08-2023 Globulin (S) [Mass/Vol] 3.5 g/dL [facility] Comment on above: Performed By: #### C MP, LIPASE, CBC #### [address] Serum or plasma albumin/glob ulin mass ratioOrdered By: Eric Dooley on 04-08-2023 Albumin/Globulin [Mass ratio] 1.2 {ratio} [facility] Comment on above: Performed By: #### C MP, LIPASE, CBC #### [address] Serum or plasma anion gap de terminationOrdered By: Eric Dooley on 04-08-2023 Anion gap [Moles/Vol] 12.1 mmol/L Normal 6.0-15.[address] [facility] Comment on above: Performed By: #### C MP, LIPASE, CBC #### [address] Serum or plasma non-glucuron idated bilirubin measurement (mass/volume)Ordered By: Eric Dooley on 04-08-2023 Bilirubin.indirect [Mass/Vol] 0.3 mg/dL [facility] Sodium [Moles/volume] in Ser um or PlasmaOrdered By: Eric Dooley on 04-08-2023 Sodium [Moles/Vol] 136 mmol/L Normal 136-145 [facility] Comment on above: Performed By: #### C MP, LIPASE, CBC #### [address] Specific gravity Auto test s trip (U) [Rel density]Ordered By: Eric Dooley on 04-08-2023 Specific gravity (U) [Rel density] 1.017 1.001-1.030 [facility] Squamous epithelial cells de tection in urine sediment by light microscopyOrdered By: Eric Dooley on 04-08-2023 Epithelial cells.squamous LM Ql (Urine sed) 0-1 [HPF] 0-2 [facility] Urea nitrogen [Mass/volume] in Serum or PlasmaOrdered By: Eric Dooley on 04-08-2023 Urea nitrogen [Mass/Vol] 16 mg/dL Normal 7-25 [facility] Comment on above: Performed By: #### C MP, LIPASE, CBC #### [facility] [address] [place] [address] Urine Cultureon 04-08-2023 Bacteria identified Cx Nom (U) 10,000 colonies/ml mixed bacterial skin contaminants 2 Days PERFORMED BY: [place] [address] PATHOLOGIST [employer] LEE CARDOSO M.D. Normal [facility] Comment on above: Performed By: #### C MP, LIPASE, CBC #### [address] Urine bacteria detection by automated methodOrdered By: Eric Dooley on 04-08-2023 Bacteria Auto Ql (U) None seen None Seen [facility] Urine clarity by refractomet ry automatedOrdered By: Eric Dooley on 04-08-2023 Clarity Refractometry automated (U) Clear Clear [facility] Urine culture routineOrdered By: Eric Dooley on 04-08-2023 Bacteria identified Cx Nom (U) 2 Days [facility] Urine glucose measurement by automated test strip (mass/volume)Ordered By: Eric Dooley on 04-08-2023 Glucose Auto test strip (U) [Mass/Vol] Normal mg/dL Normal [facility] Urine hemoglobin detection b y automated test stripOrdered By: Eric Dooley on 04-08-2023 Hemoglobin Auto test strip Ql (U) Trace Negative [facility] Urine leukocyte esterase det ection by automated test stripOrdered By: Eric Dooley on 04-08-2023 Leukocyte esterase Auto test strip Ql (U) 1+ Negative [facility] Urine pH measurement by auto mated test stripOrdered By: Eric Dooley on 04-08-2023 pH (U) 7.5 [pH] Normal 5.0-9.0 [facility] Comment on above: Order Comment: Name Collection Type:: Clean-Voided Midstream Performed By: #### C MP, LIPASE, CBC #### [facility] [address] Urobilinogen Auto test strip (U) [Mass/Vol]Ordered By: Eric Dooley on 04-08-2023 Urobilinogen (U) [Mass/Vol] Normal mg/dL Normal [facility] Alanine aminotransferase [En zymatic activity/volume] in Serum or PlasmaOrdered By: Declan Marina on 04-06-2023 ALT [Catalytic activity/Vol] 273 U/L High 7-52 [facility] Comment on above: Performed By: #### E ODALIS, MG, CMP, CBC #### [facility] [address] [place] [address] Albumin [Mass/volume] in Ser um or Plasma by Bromocresol green (BCG) dye binding methoOrdered By: Declan Marina on 04-06-2023 Albumin BCG dye [Mass/Vol] 4.1 g/dL 3.5-5.7 [facility] Alkaline phosphatase [Enzyma tic activity/volume] in Serum or PlasmaOrdered By: Declan Marina on 04-06-2023 ALP [Catalytic activity/Vol] 73 U/L Normal 34-104 [facility] Comment on above: Performed By: #### E ODALIS, MG, CMP, CBC #### [facility] [address] [place] [address] Aspartate aminotransferase [ Enzymatic activity/volume] in Serum or PlasmaOrdered By: Declan Marina on 04-06-2023 AST [Catalytic activity/Vol] 285 U/L High 13-39 [facility] Comment on above: Performed By: #### E ODALIS, MG, CMP, CBC #### [facility] [address] [place] [address] Automated basophil %Ordered By: Declan Marina on 04-06-2023 Basophils/100 WBC (Bld) 0.7 % Normal . [facility] Comment on above: Performed By: #### E ODALIS, MG, CMP, CBC #### [facility] [address] [place] [address] Automated basophil countOrde red By: Declan Marina on 04-06-2023 Basophils (Bld) [#/Vol] 0.0 10*3/uL Normal 0.0-0.2 [facility] Comment on above: Result Comment: PERF ORMED BY: [place] [address] PATHOLOGIST [employer] LEE CARDOSO M.D. Performed By: #### E ODALIS, MG, CMP, CBC #### [address] Automated blood monocyte cou ntOrdered By: Declan Marina on 04-06-2023 Monocytes (Bld) [#/Vol] 0.3 10*3/uL Normal 0.0-0.8 [facility] Comment on above: Performed By: #### E ODALIS, MG, CMP, CBC #### [address] Automated eosinophil %Ordere d By: Declan Marina on 04-06-2023 Eosinophils/100 WBC (Bld) 1.0 % Normal . [facility] Comment on above: Performed By: #### E ODALIS, MG, CMP, CBC #### [address] Automated eosinophil countOr dered By: Declan Marina on 04-06-2023 Eosinophils (Bld) [#/Vol] 0.1 10*3/uL Normal 0.0-0.45 [facility] Comment on above: Performed By: #### E ODALIS, MG, CMP, CBC #### [address] Automated monocyte %Ordered By: Declan Marina on 04-06-2023 Monocytes/100 WBC (Bld) 4.2 % Normal . [facility] Comment on above: Performed By: #### E ODALIS, MG, CMP, CBC #### [address] Automated neutrophil %Ordere d By: Declan Marina on 04-06-2023 Neutrophils/100 WBC (Bld) 60.9 % Normal . [facility] Comment on above: Performed By: #### E ODALIS, MG, CMP, CBC #### [address] Bilirubin.total [Mass/volume ] in Serum or PlasmaOrdered By: Declan Marina on 04-06-2023 Bilirubin [Mass/Vol] 0.2 mg/dL Low 0.3-1.[address] [facility] Comment on above: Performed By: #### E ODALIS, MG, CMP, CBC #### [address] Calcium [Mass/volume] in Ser um or PlasmaOrdered By: Declan Marina on 04-06-2023 Calcium [Mass/Vol] 8.6 mg/dL Normal 8.6-10.3 [facility] Comment on above: Performed By: #### E ODALIS, MG, CMP, CBC #### [address] Carbon dioxide, total [Moles /volume] in Serum or PlasmaOrdered By: Declan Marina on 04-06-2023 CO2 [Moles/Vol] 21.9 mmol/L Normal 21.0-31.0 [facility] Comment on above: Performed By: #### E ODALIS, MG, CMP, CBC #### [address] Chloride [Moles/volume] in S marbella or PlasmaOrdered By: Declan Marina on 04-06-2023 Chloride [Moles/Vol] 109 mmol/L High 98-[address] [facility] Comment on above: Performed By: #### E ODALIS, MG, CMP, CBC #### [address] Complete Blood Count Auto Di ffon 04-06-2023 Mean Corpuscular HGB Conc 34.5 g/dL Normal 32.0-35.0 [facility] Comment on above: Performed By: #### E ODAILS, MG, CMP, CBC #### [address] Monocytes/100 WBC (Bld) 17.69 % Normal 0.00-20.00 [facility] Comment on above: Performed By: #### E ODALIS, MG, CMP, CBC #### [address] [place] [address] [place] NRBC% 0.2 /100{WBC} Normal 0-0.[address] [facility] Comment on above: Performed By: #### E ODALIS, MG, CMP, CBC #### [address] Comprehensive Metabolic Pane mary beth 04-06-2023 Albumin [Mass/Vol] 4.1 g/dL Normal 3.5-5.7 [facility] Comment on above: Performed By: #### E ODALIS, MG, CMP, CBC #### [address] Creatinine Clr Calc Pharmacy 154.57 Normal [facility] Comment on above: Result Comment: PERF ORMED BY: [place] [address] PATHOLOGIST [employer] LEE CARDOSO M.D. Performed By: #### E ODALIS, MG, CMP, CBC #### [address] GFR/1.73 sq M.predicted MDRD (S/P/Bld) [Vol rate/Area] mL/min/{1.73_m2} Normal [facility] Comment on above: Performed By: #### E ODALIS, MG, CMP, CBC #### [address] Creatinine [Mass/volume] in Serum or PlasmaOrdered By: Declan Marina on 04-06-2023 Creatinine [Mass/Vol] 0.49 mg/dL Low 0.60-1.20 [facility] Comment on above: Performed By: #### E ODALIS, MG, CMP, CBC #### [address] Erythrocyte distribution wid th [Ratio] by Automated countOrdered By: Declan Marina on 04-06-2023 Erythrocyte distribution width (RBC) [Ratio] 13.9 % Normal 11.9-15.3 [facility] Comment on above: Performed By: #### E ODALIS, MG, CMP, CBC #### [address] [place] [address] [place] Erythrocytes [#/volume] in B lood by Automated countOrdered By: Declan Marina on 04-06-2023 RBC (Bld) [#/Vol] 4.33 10*6/uL Normal 3.60-5.00 [facility] Comment on above: Performed By: #### E ODALIS, MG, CMP, CBC #### [place] [address] [place] Ethanol [Mass/volume] in Ser um or PlasmaOrdered By: Declan Marina on 04-06-2023 Ethanol [Mass/Vol] 339 mg/dL Normal [facility] Comment on above: Performed By: #### E ODALIS, MG, CMP, CBC #### [address] Ethanol [Mass/Vol] 0.339 % [facility] Ethyl Alcohol Profileon 03-15 Percent Ethanol 0.339 % Normal [facility] Comment on above: Result Comment: PERF ORMED BY: [place] [address] PATHOLOGIST [employer] LEE CARDOSO M.D. Performed By: #### E ODALIS, MG, CMP, CBC #### [address] Glucose [Mass/volume] in Ser um or PlasmaOrdered By: Decaln Marina on 04-06-2023 Glucose [Mass/Vol] 83 mg/dL Normal 70-100 [facility] Comment on above: ADA recommended refe rence rangeRandom Glucose Reference Range is dependent on time and content of last meal. Glucose of more than 200 mg/dL in a nonstressed, ambulatory subject supports the diagnosis of Diabetes Mellitus. Result Comment: [place] Glucose Reference Range is dependent on time and content of last meal. Glucose of more than 200 mg/dL in a nonstressed, ambulatory subject supports the diagnosis of Diabetes Mellitus. ADA recommended reference range Performed By: #### E ODALIS, MG, CMP, CBC #### [place] [address] [place] Hematocrit [Volume Fraction] of Blood by Automated countOrdered By: Declan Marina on 04-06-2023 Hematocrit (Bld) [Volume fraction] 42.6 % Normal 34.0-46.4 [facility] Comment on above: Performed By: #### E ODALIS, MG, CMP, CBC #### [facility] [address] [place] [address] Hemoglobin [Mass/volume] in BloodOrdered By: Declan Marina on 04-06-2023 Hemoglobin (Bld) [Mass/Vol] 14.7 g/dL Normal 11.8-15.4 [facility] Comment on above: Performed By: #### E ODALIS, MG, CMP, CBC #### [facility] [address] [place] [address] Leukocytes [#/volume] correc jose for nucleated erythrocytes in Blood by Automated counOrdered By: Declan Marina on 04-06-2023 WBC corrected for nucl RBC Auto (Bld) [#/Vol] 6.9 10*3/uL 3.8-11.6 [facility] Leukocytes [#/volume] in Blo od by Automated countOrdered By: Declan Marina on 04-06-2023 WBC (Bld) [#/Vol] 6.9 10*3/uL Normal 3.8-11.6 [facility] Comment on above: Performed By: #### E ODALIS, MG, CMP, CBC #### [facility] [address] [place] [address] Lymphocytes [#/volume] in Bl ood by Automated countOrdered By: Declan Marina on 04-06-2023 Lymphocytes (Bld) [#/Vol] 2.3 10*3/uL Normal 1.00-4.8 [facility] Comment on above: Performed By: #### E ODALIS, MG, CMP, CBC #### [facility] [address] [place] [address] [place] Lymphocytes/100 leukocytes i n Blood by Automated countOrdered By: Declan Marina on 04-06-2023 Lymphocytes/100 WBC (Bld) 33.2 % Normal . [facility] Comment on above: Performed By: #### E ODALIS, MG, CMP, CBC #### [facility] [address] [place] [address] MCH [Entitic mass] by Automa jose countOrdered By: Declan Marina on 04-06-2023 MCH (RBC) [Entitic mass] 34.0 pg Normal 24.7-34.3 [facility] Comment on above: Performed By: #### E ODALIS, MG, CMP, CBC #### [facility] [address] [place] [address] MCHC Auto (RBC) [Mass/Vol]Or dered By: Declan Marina on 04-06-2023 MCHC (RBC) [Mass/Vol] 34.5 g/dL 32.0-35.0 [facility] MCV [Entitic volume] by Auto mated countOrdered By: Declan Marina on 04-06-2023 MCV (RBC) [Entitic vol] 98.5 fL Normal 80-100 [facility] Comment on above: Performed By: #### E ODALIS, MG, CMP, CBC #### [facility] [address] [place] [address] Monocyte distribution width [Entitic volume] in Blood by AutomatedOrdered By: Declan Marina on 04-06-2023 Monocyte distribution width Auto (Bld) [Entitic vol] 17.69 % 0.00-20.00 [facility] Neutrophils [#/volume] in Bl ood by Automated countOrdered By: Declan Marina on 04-06-2023 Neutrophils (Bld) [#/Vol] 4.2 10*3/uL Normal 1.8-7.7 [facility] Comment on above: Performed By: #### E ODALIS, MG, CMP, CBC #### [facility] [address] [place] [address] No Panel InformationOrdered By: Declan Marina on 04-06-2023 Estimated GFR (CKD-EPI) > 60.0 mL/Min [facility] Creatinine Clearance (Chem 154.57 [facility] Nucleated erythrocytes [Pres ence] in Blood by Automated countOrdered By: Declan Marina on 04-06-2023 Nucleated RBC Auto Ql (Bld) 0.2 /100{WBC} 0-0.5 [facility] Platelet mean volume [Entiti c volume] in Blood by Automated countOrdered By: Declan Marina on 04-06-2023 Platelet mean volume (Bld) [Entitic vol] 8.0 fL Normal 6.3-10.7 [facility] Comment on above: Performed By: #### E ODALIS, MG, CMP, CBC #### [facility] [address] Platelets [#/volume] in Bloo d by Automated countOrdered By: Declan Marina on 04-06-2023 Platelets (Bld) [#/Vol] 164 10*3/uL Normal 150-450 [facility] Comment on above: Performed By: #### E ODALIS, MG, CMP, CBC #### [facility] [address] [place] [address] Potassium [Moles/volume] in Serum or PlasmaOrdered By: Declan Marina on 04-06-2023 Potassium [Moles/Vol] 4.3 mmol/L Normal 3.5-5.1 [facility] Comment on above: Performed By: #### E ODALIS, MG, CMP, CBC #### [facility] [address] [place] [address] Protein [Mass/volume] in Ser um or PlasmaOrdered By: Declan Marina on 04-06-2023 Protein [Mass/Vol] 7.5 g/dL Normal 6.4-8.9 [facility] Comment on above: Performed By: #### E ODALIS, MG, CMP, CBC #### [facility] [address] [place] [address] Serum globulin measurement b y calculation (mass/volume)Ordered By: Declan Marina on 04-06-2023 Globulin (S) [Mass/Vol] 3.4 g/dL Normal [facility] Comment on above: Performed By: #### E ODALIS, MG, CMP, CBC #### [facility] [address] [place] [address] Serum or plasma albumin/glob ulin mass ratioOrdered By: Declan Marina on 04-06-2023 Albumin/Globulin [Mass ratio] 1.2 {ratio} Normal [facility] Comment on above: Performed By: #### E ODALIS, MG, CMP, CBC #### [facility] [address] [place] [address] Serum or plasma anion gap de terminationOrdered By: Declan Marina on 04-06-2023 Anion gap [Moles/Vol] 12.4 mmol/L Normal 6.0-15.[address] [facility] Comment on above: Performed By: #### E ODALIS, MG, CMP, CBC #### [facility] [address] [place] [address] Sodium [Moles/volume] in Ser um or PlasmaOrdered By: Declan Marina on 04-06-2023 Sodium [Moles/Vol] 139 mmol/L Normal 136-145 [facility] Comment on above: Performed By: #### E ODALIS, MG, CMP, CBC #### [facility] [address] [place] [address] Urea nitrogen [Mass/volume] in Serum or PlasmaOrdered By: Declan Marina on 04-06-2023 Urea nitrogen [Mass/Vol] 11 mg/dL Normal 7-25 [facility] Comment on above: Performed By: #### E ODALIS, MG, CMP, CBC #### [address] ED Note-Physicianon 03-18-19 ED Note-Physician [id number] 2009 [id number] F Normal [facility] Alanine aminotransferase [En zymatic activity/volume] in Serum or PlasmaOrdered By: Delvis Benz on 03-17-2023 ALT [Catalytic activity/Vol] 131 U/L High 7-52 [facility] Comment on above: Performed By: #### E ODALIS, MG, CMP, CBC #### [facility] [address] [place] [address] Albumin [Mass/volume] in Ser um or Plasma by Bromocresol green (BCG) dye binding methoOrdered By: Delvis Benz on 03-17-2023 Albumin BCG dye [Mass/Vol] 4.2 g/dL 3.5-5.7 [facility] Alkaline phosphatase [Enzyma tic activity/volume] in Serum or PlasmaOrdered By: Delvis Benz on 03-17-2023 ALP [Catalytic activity/Vol] 64 U/L Normal 34-104 [facility] Comment on above: Performed By: #### E ODALIS, MG, CMP, CBC #### [facility] [address] [place] [address] Amphetamine Screen Ql (U)Ord ered By: Delvis Benz on 03-17-2023 Amphetamines Ql (U) Negative Negative [facility] Aspartate aminotransferase [ Enzymatic activity/volume] in Serum or PlasmaOrdered By: Delvis Benz on 03-17-2023 AST [Catalytic activity/Vol] 126 U/L High 13-39 [facility] Comment on above: Performed By: #### E ODALIS, MG, CMP, CBC #### [address] Automated basophil %Ordered By: Delvis Benz on 03-17-2023 Basophils/100 WBC (Bld) 0.6 % Normal . [facility] Comment on above: Performed By: #### E ODLAIS, MG, CMP, CBC #### [facility] [address] [place] [address] Automated basophil countOrde red By: Delvis Benz on 03-17-2023 Basophils (Bld) [#/Vol] 0.0 10*3/uL Normal 0.0-0.2 [facility] Comment on above: Result Comment: PERF ORMED BY: [place] [address] PATHOLOGIST [employer] LEE CADROSO M.D. Performed By: #### E ODALIS, MG, CMP, CBC #### [facility] [address] [place] [address] Automated blood monocyte cou ntOrdered By: Delvis Benz on 03-17-2023 Monocytes (Bld) [#/Vol] 0.4 10*3/uL Normal 0.0-0.8 [facility] Comment on above: Performed By: #### E ODALIS, MG, CMP, CBC #### [facility] [address] [place] [address] Automated eosinophil %Ordere d By: Delvis Benz on 03-17-2023 Eosinophils/100 WBC (Bld) 1.1 % Normal . [facility] Comment on above: Performed By: #### E ODALIS, MG, CMP, CBC #### [facility] [address] [place] [address] Automated eosinophil countOr dered By: Delvis Benz on 03-17-2023 Eosinophils (Bld) [#/Vol] 0.1 10*3/uL Normal 0.0-0.45 [facility] Comment on above: Performed By: #### E ODALIS, MG, CMP, CBC #### [address] Automated erythrocytes count in urine sediment (number/area)Ordered By: Delvis Benz on 03-17-2023 RBC Auto (Urine sed) [#/Area] 0-1 [HPF] 0-4 [facility] Automated leukocytes count i n urine sediment (number/area)Ordered By: Delvis Benz on 03-17-2023 WBC Auto (Urine sed) [#/Area] 10-19 [HPF] 0-4 [facility] Automated monocyte %Ordered By: Delvis Benz on 03-17-2023 Monocytes/100 WBC (Bld) 5.0 % Normal . [facility] Comment on above: Performed By: #### E ODALIS, MG, CMP, CBC #### [facility] [address] [place] [address] Automated neutrophil %Ordere d By: Delvis Benz on 03-17-2023 Neutrophils/100 WBC (Bld) 43.9 % Normal . [facility] Comment on above: Performed By: #### E ODALIS, MG, CMP, CBC #### [facility] [address] [place] [address] Automated urine color determ inationOrdered By: Delvis Benz on 03-17-2023 Color (U) Yellow Normal Yellow [facility] Comment on above: Order Comment: Name Collection Type:: Clean-Voided Midstream Performed By: #### E ODALIS, MG, CMP, CBC #### [facility] [address] [place] [address] [place] Barbiturates [Presence] in U rine by Screen methodOrdered By: Delvis Benz on 03-17-2023 Barbiturates Screen Ql (U) Negative Negative [facility] Benzodiazepines Screen Ql (U )Ordered By: Delvis Benz on 03-17-2023 Benzodiazepines Ql (U) Negative Negative [facility] Benzoylecgonine [Presence] i n Urine by Screen methodOrdered By: Delvis Benz on 03-17-2023 Benzoylecgonine Screen Ql (U) Positive Negative [facility] Bilirubin Test strip Ql (U)O rdered By: Delvis Benz on 03-17-2023 Bilirubin Ql (U) Negative Negative [facility] Bilirubin.total [Mass/volume ] in Serum or PlasmaOrdered By: Delvis Benz on 03-17-2023 Bilirubin [Mass/Vol] 0.9 mg/dL Normal 0.3-1.[address] [facility] Comment on above: Performed By: #### E ODALIS, MG, CMP, CBC #### [facility] [address] Calcium [Mass/volume] in Ser um or PlasmaOrdered By: Delvis Benz on 03-17-2023 Calcium [Mass/Vol] 8.8 mg/dL Normal 8.6-10.3 [facility] Comment on above: Performed By: #### E ODALIS, MG, CMP, CBC #### [facility] [address] [place] [address] [place] Cannabinoids [Presence] in U rine by Screen methodOrdered By: Delvis Benz on 03-17-2023 Cannabinoids Screen Ql (U) Negative Negative [facility] Comment on above: These are unconfirme d results and should not be used for legal purposes. Drug Cut-Off Concentration: AMPH 1000 ng/mL JANELL 200 ng/mL JAMES 200 ng/mL COCM 300 ng/mL OP 300 ng/mL PCP 25 ng/mL THC 20 ng/mL Carbon dioxide, total [Moles /volume] in Serum or PlasmaOrdered By: Delvis Benz on 03-17-2023 CO2 [Moles/Vol] 25.3 mmol/L Normal 21.0-31.0 [facility] Comment on above: Performed By: #### E ODALIS, MG, CMP, CBC #### [address] Chloride [Moles/volume] in S marbella or PlasmaOrdered By: Delvissusan Benz on 03-17-2023 Chloride [Moles/Vol] 104 mmol/L Normal 98-[address] [facility] Comment on above: Performed By: #### E ODALIS, MG, CMP, CBC #### [address] Complete Blood Count Auto Di ffon 03-17-2023 Mean Corpuscular HGB Conc 34.9 g/dL Normal 32.0-35.0 [facility] Comment on above: Performed By: #### E ODALIS, MG, CMP, CBC #### [address] Monocytes/100 WBC (Bld) 18.74 % Normal 0.00-20.00 [facility] Comment on above: Performed By: #### E ODALIS, MG, CMP, CBC #### [address] NRBC% 0.1 /100{WBC} Normal 0-0.[address] [facility] Comment on above: Performed By: #### E ODALIS, MG, CMP, CBC #### [address] Comprehensive Metabolic Pane mary beth 03-17-2023 Albumin [Mass/Vol] 4.2 g/dL Normal 3.5-5.7 [facility] Comment on above: Performed By: #### E ODALIS, MG, CMP, CBC #### [address] Creatinine Clr Calc Pharmacy 119.57 Normal [facility] Comment on above: Performed By: #### E ODALIS, MG, CMP, CBC #### [address] GFR/1.73 sq M.predicted MDRD (S/P/Bld) [Vol rate/Area] mL/min/{1.73_m2} Normal [facility] Comment on above: Performed By: #### E ODALIS, MG, CMP, CBC #### [facility] [address] Creatinine [Mass/volume] in Serum or PlasmaOrdered By: Delvis Benz on 03-17-2023 Creatinine [Mass/Vol] 0.63 mg/dL Normal 0.60-1.20 [facility] Comment on above: Performed By: #### E ODALIS, MG, CMP, CBC #### [facility] [address] [place] [address] [place] Dipstick and Microscopicon 0 03-17-2023 Appearance (U) Clear Normal Clear [facility] Comment on above: Order Comment: Name Collection Type:: Clean-Voided Midstream Performed By: #### E ODALIS, MG, CMP, CBC #### [facility] [address] [place] [address] [place] Bacteria,Urine None Seen Normal None Seen [facility] Comment on above: Order Comment: Name Collection Type:: Clean-Voided Midstream Performed By: #### E ODALIS, MG, CMP, CBC #### [facility] [address] Bilirubin,Urine Negative Normal Negative [facility] Comment on above: Order Comment: Name Collection Type:: Clean-Voided Midstream Performed By: #### E ODALIS, MG, CMP, CBC #### [facility] [address] [place] [address] [place] Glucose Ql (U) Normal Normal Normal [facility] Comment on above: Order Comment: Name Collection Type:: Clean-Voided Midstream Performed By: #### E ODALIS, MG, CMP, CBC #### [facility] [address] [place] [address] [place] Hyaline Casts,Urine 0-8 Normal 0-8 [facility] Comment on above: Order Comment: Name Collection Type:: Clean-Voided Midstream Performed By: #### E ODALIS, MG, CMP, CBC #### [address] Ketones Ql (U) Negative Normal Negative [facility] Comment on above: Order Comment: Name Collection Type:: Clean-Voided Midstream Performed By: #### E ODALIS, MG, CMP, CBC #### [address] Leukocyte esterase Test strip Ql (U) 2+ High Negative [facility] Comment on above: Order Comment: Name Collection Type:: Clean-Voided Midstream Performed By: #### E ODALIS, MG, CMP, CBC #### [place] [address] [place] Nitrite,Urine Negative Normal Negative [facility] Comment on above: Order Comment: Name Collection Type:: Clean-Voided Midstream Performed By: #### E ODALIS, MG, CMP, CBC #### [address] Occult Blood,Urine Negative Normal Negative [facility] Comment on above: Order Comment: Name Collection Type:: Clean-Voided Midstream Performed By: #### E ODALIS, MG, CMP, CBC #### [address] Protein,Urine Negative Normal Negative [facility] Comment on above: Order Comment: Name Collection Type:: Clean-Voided Midstream Performed By: #### E ODALIS, MG, CMP, CBC #### [place] [address] [place] RBC LM.HPF (Urine sed) [#/Area] 0 /[HPF] Normal 0-4 [facility] Comment on above: Order Comment: Name Collection Type:: Clean-Voided Midstream Performed By: #### E ODALIS, MG, CMP, CBC #### [address] Specificy [place],Urine 1.029 Normal 1.001-1.030 [facility] Comment on above: Order Comment: Name Collection Type:: Clean-Voided Midstream Performed By: #### E ODALIS, MG, CMP, CBC #### [facility] [address] [place] [address] Squamous Epithelial Cell,Urine 3-4 High 0-2 [facility] Comment on above: Order Comment: Name Collection Type:: Clean-Voided Midstream Performed By: #### E ODALIS, MG, CMP, CBC #### [facility] [address] [place] [address] Urobilinogen,Urine Normal Normal Normal [facility] Comment on above: Order Comment: Name Collection Type:: Clean-Voided Midstream Performed By: #### E ODALIS, MG, CMP, CBC #### [address] WBC,Urine 10-19 High 0-4 [facility] Comment on above: Order Comment: Name Collection Type:: Clean-Voided Midstream Performed By: #### E ODALIS, MG, CMP, CBC #### [address] Yeast,Urine None Seen Normal None Seen [facility] Comment on above: Order Comment: Name Collection Type:: Clean-Voided Midstream Performed By: #### E ODALIS, MG, CMP, CBC #### [address] Drug Screen,Urineon 03-17-19 24 Amphetamine Screen,Urine Negative Normal Negative [facility] Comment on above: Performed By: #### E ODALIS, MG, CMP, CBC #### [address] Barbiturate Screen,Urine Negative Normal Negative [facility] Comment on above: Performed By: #### E ODALIS, MG, CMP, CBC #### [address] Benzodiazepines Screen,Urine Negative Normal Negative [facility] Comment on above: Performed By: #### E ODALIS, MG, CMP, CBC #### [address] Cannabinoid Screen,Urine Negative Normal Negative [facility] Comment on above: Result Comment: Thes e are unconfirmed results and should not be used for legal purposes. Drug Cut-Off Concentration: AMPH 1000 ng/mL JANELL 200 ng/mL JAMES 200 ng/mL COCM 300 ng/mL OP 300 ng/mL PCP 25 ng/mL THC 20 ng/mL PERFORMED BY: [place] [address] PATHOLOGIST [employer] LEE CARDOSO M.D. Performed By: #### E ODALIS, MG, CMP, CBC #### [address] Cocaine Screen,Urine Positive High Negative [facility] Comment on above: Performed By: #### E ODALIS, MG, CMP, CBC #### [address] Opiate Screen,Urine Negative Normal Negative [facility] Comment on above: Performed By: #### E ODALIS, MG, CMP, CBC #### [address] Phencyclidine Screen,Urine Negative Normal Negative [facility] Comment on above: Performed By: #### E ODALIS, MG, CMP, CBC #### [address] ECG 12 lead ECGon 03-17-2023 [address] [facility] [place] [address] [place] [address] Electrocardiograph Report Signed Patient: Lyle Bailey MR#: [id number] : 1990 Acct:[id number] Age/Sex: 33 / F ADM Date: 03/17/23 Loc: ER Room: Type: [facility] ER Attending Dr: Ordering Provider: Delvis Benz [...] was found Confirmed by DELVIS BENZ DO ([id number]) on 03/17/2023 4:22:17 PM Referred By: Electronically Signed By:DELVIS BENZ DO Transcribed By: MUS Signed By Delvis Benz DO 03/17 1622 Normal [facility] Erythrocyte distribution wid th [Ratio] by Automated countOrdered By: Delvis Benz on 03-17-2023 Erythrocyte distribution width (RBC) [Ratio] 13.3 % Normal 11.9-15.3 [facility] Comment on above: Performed By: #### E ODALIS, MG, CMP, CBC #### [facility] [address] Erythrocytes [#/volume] in B lood by Automated countOrdered By: Delvis Benz on 03-17-2023 RBC (Bld) [#/Vol] 4.24 10*6/uL Normal 3.60-5.00 [facility] Comment on above: Performed By: #### E ODALIS, MG, CMP, CBC #### [facility] [address] Glucose [Mass/volume] in Ser um or PlasmaOrdered By: Delvis Benz on 03-17-2023 Glucose [Mass/Vol] 88 mg/dL Normal 70-100 [facility] Comment on above: ADA recommended refe rence rangeRandom Glucose Reference Range is dependent on time and content of last meal. Glucose of more than 200 mg/dL in a nonstressed, ambulatory subject supports the diagnosis of Diabetes Mellitus. Result Comment: [place] om Glucose Reference Range is dependent on time and content of last meal. Glucose of more than 200 mg/dL in a nonstressed, ambulatory subject supports the diagnosis of Diabetes Mellitus. ADA recommended reference range Performed By: #### E ODALIS, MG, CMP, CBC #### [facility] [address] [place] [address] [place] HCG ( test) IA.maegan martinez Ql (U)Ordered By: Delvis Benz on 03-17-2023 HCG ( test) Ql (U) Negative [facility] HCG,Urineon 03-17-2023 Beta HCG ( test) Ql (U) Negative Normal [facility] Comment on above: Order Comment: Name Collection Type:: Clean-Voided Midstream Result Comment: PERF ORMED BY: [place] [address] PATHOLOGIST [employer] LEE CARDOSO M.D. Performed By: #### E ODALIS, MG, CMP, CBC #### [facility] [address] [place] [address] Hematocrit [Volume Fraction] of Blood by Automated countOrdered By: Delvis Benz on 03-17-2023 Hematocrit (Bld) [Volume fraction] 40.7 % Normal 34.0-46.4 [facility] Comment on above: Performed By: #### E ODALIS, MG, CMP, CBC #### [facility] [address] [place] [address] Hemoglobin [Mass/volume] in BloodOrdered By: Delvis Benz on 03-17-2023 Hemoglobin (Bld) [Mass/Vol] 14.2 g/dL Normal 11.8-15.4 [facility] Comment on above: Performed By: #### E ODALIS, MG, CMP, CBC #### [facility] [address] [place] [address] [place] INR in Platelet poor plasma by Coagulation assayOrdered By: Delvis Benz on 03-17-2023 INR Coag (PPP) [Relative time] 1.0 {INR} Normal [facility] Comment on above: INR Therapeutic Rang e [...] heart valves: 3 - 4.5 PERFORMED BY: [place] [address] PATHOLOGIST [employer] LEE CARDOSO M.D. Performed By: #### E ODALIS, MG, CMP, CBC #### [facility] [address] [place] [address] Ketones Auto test strip (U) [Mass/Vol]Ordered By: Delvis Benz on 03-17-2023 Ketones (U) [Mass/Vol] Negative Negative [facility] Laboratory - UrinalysisOrder ed By: Delvis Benz on 03-17-2023 Hyaline casts LM Ql (Urine sed) 0-8 [LPF] 0-8 [facility] Leukocytes [#/volume] correc jose for nucleated erythrocytes in Blood by Automated counOrdered By: Delvis Benz on 03-17-2023 WBC corrected for nucl RBC Auto (Bld) [#/Vol] 7.2 10*3/uL 3.8-11.6 [facility] Leukocytes [#/volume] in Blo od by Automated countOrdered By: Delvis Benz on 03-17-2023 WBC (Bld) [#/Vol] 7.2 10*3/uL Normal 3.8-11.6 [facility] Comment on above: Performed By: #### E ODALIS, MG, CMP, CBC #### [facility] [address] [place] [address] Lipase [Enzymatic activity/v olume] in Serum or PlasmaOrdered By: Delvis Benz on 03-17-2023 Lipase [Catalytic activity/Vol] 67.0 U/L Normal 11.0-82.0 [facility] Comment on above: Result Comment: PERF ORMED BY: [place] [address] PATHOLOGIST [employer] ELE CARDOSO M.D. Performed By: #### E ODALIS, MG, CMP, CBC #### [facility] [address] [place] [address] Lymphocytes [#/volume] in Bl ood by Automated countOrdered By: Delvis Benz on 03-17-2023 Lymphocytes (Bld) [#/Vol] 3.6 10*3/uL Normal 1.00-4.8 [facility] Comment on above: Performed By: #### E ODALIS, MG, CMP, CBC #### [facility] [address] [place] [address] Lymphocytes/100 leukocytes i n Blood by Automated countOrdered By: Delvis Benz on 03-17-2023 Lymphocytes/100 WBC (Bld) 49.4 % Normal . [facility] Comment on above: Performed By: #### E ODALIS, MG, CMP, CBC #### [facility] [address] [place] [address] MCH [Entitic mass] by Automa jose countOrdered By: Delvis Benz on 03-17-2023 MCH (RBC) [Entitic mass] 33.5 pg Normal 24.7-34.3 [facility] Comment on above: Performed By: #### E ODALIS, MG, CMP, CBC #### [facility] [address] [place] [address] MCHC Auto (RBC) [Mass/Vol]Or dered By: Delvis Benz on 03-17-2023 MCHC (RBC) [Mass/Vol] 34.9 g/dL 32.0-35.0 [facility] MCV [Entitic volume] by Auto mated countOrdered By: Delvis Benz on 03-17-2023 MCV (RBC) [Entitic vol] 95.9 fL Normal 80-100 [facility] Comment on above: Performed By: #### E ODALIS, MG, CMP, CBC #### [facility] [address] [place] [address] Monocyte distribution width [Entitic volume] in Blood by AutomatedOrdered By: Delvis Benz on 03-17-2023 Monocyte distribution width Auto (Bld) [Entitic vol] 18.74 % 0.00-20.00 [facility] Neutrophils [#/volume] in Bl ood by Automated countOrdered By: Delvis Benz on 03-17-2023 Neutrophils (Bld) [#/Vol] 3.2 10*3/uL Normal 1.8-7.7 [facility] Comment on above: Performed By: #### E ODALIS, MG, CMP, CBC #### [facility] [address] Nitrite Test strip Ql (U)Ord ered By: Delvis Benz on 03-17-2023 Nitrite Ql (U) Negative Negative [facility] No Panel InformationOrdered By: Delvis Benz on 03-17-2023 Estimated GFR (CKD-EPI) > 60.0 mL/Min [facility] Creatinine Clearance (Chem 119.57 [facility] Nucleated erythrocytes [Pres ence] in Blood by Automated countOrdered By: Delvis Benz on 03-17-2023 Nucleated RBC Auto Ql (Bld) 0.1 /100{WBC} 0-0.5 [facility] Opiates [Presence] in Urine by Screen methodOrdered By: Delvis Benz on 03-17-2023 Opiates Screen Ql (U) Negative Negative [facility] Phencyclidine Screen Ql (U)O rdered By: Delvis Benz on 03-17-2023 Phencyclidine Ql (U) Negative Negative [facility] Platelet mean volume [Entiti c volume] in Blood by Automated countOrdered By: Delvis Benz on 03-17-2023 Platelet mean volume (Bld) [Entitic vol] 8.5 fL Normal 6.3-10.7 [facility] Comment on above: Performed By: #### E ODALIS, MG, CMP, CBC #### [facility] [address] [place] [address] [place] Platelets [#/volume] in Bloo d by Automated countOrdered By: Delvis Benz on 03-17-2023 Platelets (Bld) [#/Vol] 139 10*3/uL Low 150-450 [facility] Comment on above: Performed By: #### E ODALIS, MG, CMP, CBC #### [facility] [address] [place] [address] [place] Potassium [Moles/volume] in Serum or PlasmaOrdered By: Delvis Benz on 03-17-2023 Potassium [Moles/Vol] 3.8 mmol/L Normal 3.5-5.1 [facility] Comment on above: Performed By: #### E ODALIS, MG, CMP, CBC #### [address] Protein Auto test strip (U) [Mass/Vol]Ordered By: Delvis Benz on 03-17-2023 Protein (U) [Mass/Vol] Negative Negative [facility] Protein [Mass/volume] in Ser um or PlasmaOrdered By: Delvis Benz on 03-17-2023 Protein [Mass/Vol] 7.5 g/dL Normal 6.4-8.9 [facility] Comment on above: Performed By: #### E ODALIS, MG, CMP, CBC #### [address] Prothrombin time (PT)Ordered By: Delvis Benz on 03-17-2023 PT Coag (PPP) [Time] 11.6 s Normal 9.0-12.[address] [facility] Comment on above: A hematocrit value g reater than 55% may lead to inaccurate results in coagulation testing. Patients having hematocrit values >55% require a special collection tube for coagulation studies. Please contact the laboratory at [phone] for redraw instructions. Result Comment: A he matocrit value greater than 55% may lead to inaccurate results in coagulation testing. Patients having hematocrit values >55% require a special collection tube for coagulation studies. Please contact the laboratory at [phone] for redraw instructions. Performed By: #### E ODALIS, MG, CMP, CBC #### [address] Serum globulin measurement b y calculation (mass/volume)Ordered By: Delvis Benz on 03-17-2023 Globulin (S) [Mass/Vol] 3.3 g/dL Normal [facility] Comment on above: Performed By: #### E ODALIS, MG, CMP, CBC #### [address] Serum or plasma albumin/glob ulin mass ratioOrdered By: Delvis Benz on 03-17-2023 Albumin/Globulin [Mass ratio] 1.3 {ratio} Normal [facility] Comment on above: Performed By: #### E ODALIS, MG, CMP, CBC #### [facility] [address] [place] [address] Serum or plasma anion gap de terminationOrdered By: Delvis Benz on 03-17-2023 Anion gap [Moles/Vol] 11.5 mmol/L Normal 6.0-15.[address] [facility] Comment on above: Performed By: #### E ODALIS, MG, CMP, CBC #### [address] Sodium [Moles/volume] in Ser um or PlasmaOrdered By: Delvis Benz on 03-17-2023 Sodium [Moles/Vol] 137 mmol/L Normal 136-145 [facility] Comment on above: Performed By: #### E ODALIS MG, CMP, CBC #### [address] Specific gravity Auto test s trip (U) [Rel density]Ordered By: Delvis Benz on 03-17-2023 Specific gravity (U) [Rel density] 1.029 1.001-1.030 [facility] Squamous epithelial cells de tection in urine sediment by light microscopyOrdered By: Delvis Benz on 03-17-2023 Epithelial cells.squamous LM Ql (Urine sed) 3-4 [HPF] 0-2 [facility] Urea nitrogen [Mass/volume] in Serum or PlasmaOrdered By: Delvis Benz on 03-17-2023 Urea nitrogen [Mass/Vol] 16 mg/dL Normal 7-25 [facility] Comment on above: Performed By: #### E ODALIS, MG, CMP, CBC #### [facility] [address] [place] [address] Urine Cultureon 03-17-2023 Bacteria identified Cx Nom (U) ORGANISM: Strep. agalactiae Grp B (O:B) [place] Count 10,000 PERFORMED BY: [place] [address] PATHOLOGIST [employer] LEE CARDOSO M.D. Normal [facility] Comment on above: Performed By: #### E ODALIS, MG, CMP, CBC #### [facility] [address] [id number] [facility] Urine bacteria detection by automated methodOrdered By: Delvis Benz on 03-17-2023 Bacteria Auto Ql (U) None seen None Seen [facility] Urine clarity by refractomet ry automatedOrdered By: Delvis Benz on 03-17-2023 Clarity Refractometry automated (U) Clear Clear [facility] Urine culture routineOrdered By: Delvis Benz on 03-17-2023 Bacteria identified Cx Nom (U) Strep. agalactiae Grp B [facility] Bacteria identified Cx Nom (U) Strep. agalactiae Grp B [facility] Urine glucose measurement by automated test strip (mass/volume)Ordered By: Delvis Benz on 03-17-2023 Glucose Auto test strip (U) [Mass/Vol] Normal mg/dL Normal [facility] Urine hemoglobin detection b y automated test stripOrdered By: Delvis Benz on 03-17-2023 Hemoglobin Auto test strip Ql (U) Negative Negative [facility] Urine leukocyte esterase det ection by automated test stripOrdered By: Delvis Benz on 03-17-2023 Leukocyte esterase Auto test strip Ql (U) 2+ Negative [facility] Urine pH measurement by auto mated test stripOrdered By: Delvis Benz on 03-17-2023 pH (U) 6.0 [pH] Normal 5.0-9.0 [facility] Comment on above: Order Comment: Name Collection Type:: Clean-Voided Midstream Performed By: #### E ODALIS, MG, CMP, CBC #### [facility] [address] [id number] [place] Urobilinogen Auto test strip (U) [Mass/Vol]Ordered By: Delvis Benz on 03-17-2023 Urobilinogen (U) [Mass/Vol] Normal mg/dL Normal [facility] Yeast detection in urine sed iment by light microscopyOrdered By: Delvis Benz on 03-17-2023 Yeast LM Ql (Urine sed) None seen [HPF] None Seen [facility] ECG 12 lead ECGon 03-12-[address] [facility] Main [address] [address] Electrocardiograph Report Signed Patient: Lyle Bailey MR#: [id number] : 1990 Acct:[id number] Age/Sex: 33 / F ADM Date: 03/12/23 Loc: ER Room: Type: [facility] ER Attending Dr: Ordering Provider: Azra Farmer [...] By Azra Farmer DO 2022 Normal [facility] ECG 12 lead ECGon 03-04-[address] [facility] Main [address] [address] Electrocardiograph Report Signed Patient: Lyle Bailey MR#: [id number] : 1990 Acct:[id number] Age/Sex: 33 / F ADM Date: 03/04/23 Loc: ER Room: Type: [facility] ER Attending Dr: Ordering Provider: Azra Farmer [...] Phil Alvarez MD 0 03/07/23 1037 Normal [facility] ED Note-Physicianon 02-25-19 ED Note-Physician [id number] [id number] F Normal [facility] Alanine aminotransferase [En zymatic activity/volume] in Serum or PlasmaOrdered By: Samanta Castro on 01-25-2023 ALT [Catalytic activity/Vol] 118 U/L High 7-52 [facility] Comment on above: Performed By: #### E ODALIS, MG, CMP, CBC #### [facility] [address] [place] [address] Albumin [Mass/volume] in Ser um or Plasma by Bromocresol green (BCG) dye binding methoOrdered By: Samanta Castro on 01-25-2023 Albumin BCG dye [Mass/Vol] 4.4 g/dL 3.5-5.7 [facility] Alkaline phosphatase [Enzyma tic activity/volume] in Serum or PlasmaOrdered By: Samanta Castro on 01-25-2023 ALP [Catalytic activity/Vol] 75 U/L Normal 34-104 [facility] Comment on above: Performed By: #### E ODALIS, MG, CMP, CBC #### [facility] [address] [place] [address] Amphetamine Screen Ql (U)Ord ered By: Samanta Castro on 01-25-2023 Amphetamines Ql (U) Positive Negative [facility] Aspartate aminotransferase [ Enzymatic activity/volume] in Serum or PlasmaOrdered By: Samanta Castro on 01-25-2023 AST [Catalytic activity/Vol] 84 U/L High 13-39 [facility] Comment on above: Performed By: #### E ODALIS, MG, CMP, CBC #### [facility] [address] [place] [address] Automated basophil %Ordered By: Samanta Castro on 01-25-2023 Basophils/100 WBC (Bld) 0.7 % Normal . [facility] Comment on above: Performed By: #### E ODALIS, MG, CMP, CBC #### [address] Automated basophil countOrde red By: Samanta Castro on 01-25-2023 Basophils (Bld) [#/Vol] 0.1 10*3/uL Normal 0.0-0.2 [facility] Comment on above: Result Comment: PERF ORMED BY: [place] [address] PATHOLOGIST [employer] LEE CARDOSO M.D. Performed By: #### E ODALIS, MG, CMP, CBC #### [address] Automated blood monocyte cou ntOrdered By: Samanta Castro on 01-25-2023 Monocytes (Bld) [#/Vol] 0.8 10*3/uL Normal 0.0-0.8 [facility] Comment on above: Performed By: #### E ODALIS, MG, CMP, CBC #### [address] Automated eosinophil %Ordere d By: Samanta Castro on 01-25-2023 Eosinophils/100 WBC (Bld) 0.6 % Normal . [facility] Comment on above: Performed By: #### E ODALIS, MG, CMP, CBC #### [address] Automated eosinophil countOr dered By: Samanta Castro on 01-25-2023 Eosinophils (Bld) [#/Vol] 0.0 10*3/uL Normal 0.0-0.45 [facility] Comment on above: Performed By: #### E ODALIS, MG, CMP, CBC #### [address] Automated erythrocytes count in urine sediment (number/area)Ordered By: Samanta Castro on 01-25-2023 RBC Auto (Urine sed) [#/Area] 0-1 [HPF] 0-4 [facility] Automated leukocytes count i n urine sediment (number/area)Ordered By: Samanta Castro on 01-25-2023 WBC Auto (Urine sed) [#/Area] 1-2 [HPF] 0-4 [facility] Automated monocyte %Ordered By: Samanta Castro on 01-25-2023 Monocytes/100 WBC (Bld) 10.2 % Normal . [facility] Comment on above: Performed By: #### E ODALIS, MG, CMP, CBC #### [facility] [address] Automated neutrophil %Ordere d By: Samanta Castro on 01-25-2023 Neutrophils/100 WBC (Bld) 52.7 % Normal . [facility] Comment on above: Performed By: #### E ODALIS, MG, CMP, CBC #### [facility] [address] [place] [address] [place] Automated urine color determ inationOrdered By: Samanta Castro on 01-25-2023 Color (U) Dark yellow Critically abnormal Yellow [facility] Comment on above: Order Comment: Name Collection Type:: Clean-Voided Midstream Performed By: #### E ODALIS, MG, CMP, CBC #### [facility] [address] Barbiturates [Presence] in U rine by Screen methodOrdered By: Samanta Castro on 01-25-2023 Barbiturates Screen Ql (U) Positive Negative [facility] Benzodiazepines Screen Ql (U )Ordered By: Samanta Castro on 01-25-2023 Benzodiazepines Ql (U) Positive Negative [facility] Benzoylecgonine [Presence] i n Urine by Screen methodOrdered By: Samanta Castro on 01-25-2023 Benzoylecgonine Screen Ql (U) Positive Negative [facility] Bilirubin Test strip Ql (U)O rdered By: Samanta Castro on 01-25-2023 Bilirubin Ql (U) 2+ Negative [facility] Bilirubin.total [Mass/volume ] in Serum or PlasmaOrdered By: Samanta Castro on 01-25-2023 Bilirubin [Mass/Vol] 0.9 mg/dL Normal 0.3-1.[address] [facility] Comment on above: Performed By: #### E ODALIS, MG, CMP, CBC #### [facility] [address] Calcium [Mass/volume] in Ser um or PlasmaOrdered By: Samanta Castro on 01-25-2023 Calcium [Mass/Vol] 9.3 mg/dL Normal 8.6-10.3 [facility] Comment on above: Performed By: #### E ODALIS, MG, CMP, CBC #### [facility] [address] Cannabinoids [Presence] in U rine by Screen methodOrdered By: Samanta Castro on 01-25-2023 Cannabinoids Screen Ql (U) Negative Negative [facility] Comment on above: These are unconfirme d results and should not be used for legal purposes. Drug Cut-Off Concentration: AMPH 1000 ng/mL JANELL 200 ng/mL JAMES 200 ng/mL COCM 300 ng/mL OP 300 ng/mL PCP 25 ng/mL THC 20 ng/mL Carbon dioxide, total [Moles /volume] in Serum or PlasmaOrdered By: Samanta Castro on 01-25-2023 CO2 [Moles/Vol] 24.8 mmol/L Normal 21.0-31.0 [facility] Comment on above: Performed By: #### E ODALIS, MG, CMP, CBC #### [place] [address] [place] Chloride [Moles/volume] in S marbella or PlasmaOrdered By: Samanta Castro on 01-25-2023 Chloride [Moles/Vol] 102 mmol/L Normal 98-[address] [facility] Comment on above: Performed By: #### E ODALIS, MG, CMP, CBC #### [facility] [address] [place] [address] Complete Blood Count Auto Di ffon 01-25-2023 Mean Corpuscular HGB Conc 34.9 g/dL Normal 32.0-35.0 [facility] Comment on above: Performed By: #### E ODALIS, MG, CMP, CBC #### [address] [place] [address] [place] Monocytes/100 WBC (Bld) 19.94 % Normal 0.00-20.00 [facility] Comment on above: Performed By: #### E ODALIS, MG, CMP, CBC #### [address] NRBC% 0.1 /100{WBC} Normal 0-0.[address] [facility] Comment on above: Performed By: #### E ODALIS, MG, CMP, CBC #### [address] Comprehensive Metabolic Pane mary beth 01-25-2023 Albumin [Mass/Vol] 4.4 g/dL Normal 3.5-5.7 [facility] Comment on above: Performed By: #### E ODALIS, MG, CMP, CBC #### [address] Creatinine Clr Calc Pharmacy 102.16 Normal [facility] Comment on above: Performed By: #### E ODALIS, MG, CMP, CBC #### [address] GFR/1.73 sq M.predicted MDRD (S/P/Bld) [Vol rate/Area] mL/min/{1.73_m2} Normal [facility] Comment on above: Performed By: #### E ODALIS, MG, CMP, CBC #### [address] Creatinine [Mass/volume] in Serum or PlasmaOrdered By: Samanta Castro on 01-25-2023 Creatinine [Mass/Vol] 0.71 mg/dL Normal 0.60-1.20 [facility] Comment on above: Performed By: #### E ODALIS, MG, CMP, CBC #### [address] Dipstick and Microscopicon 1 03-28-2022 Appearance (U) Clear Normal Clear [facility] Comment on above: Order Comment: Name Collection Type:: Clean-Voided Midstream Performed By: #### E ODALIS, MG, CMP, CBC #### [address] Bacteria,Urine None Seen Normal None Seen [facility] Comment on above: Order Comment: Name Collection Type:: Clean-Voided Midstream Performed By: #### E ODALIS, MG, CMP, CBC #### [address] Bilirubin,Urine 2+ High Negative [facility] Comment on above: Order Comment: Name Collection Type:: Clean-Voided Midstream Performed By: #### E ODALIS, MG, CMP, CBC #### [address] Glucose Ql (U) Normal Normal Normal [facility] Comment on above: Order Comment: Name Collection Type:: Clean-Voided Midstream Performed By: #### E ODALIS, MG, CMP, CBC #### [address] Hyaline Casts,Urine 9-19 High 0-8 [facility] Comment on above: Order Comment: Name Collection Type:: Clean-Voided Midstream Performed By: #### E ODALIS, MG, CMP, CBC #### [address] Ketones Ql (U) Trace High Negative [facility] Comment on above: Order Comment: Name Collection Type:: Clean-Voided Midstream Performed By: #### E ODALIS, MG, CMP, CBC #### [address] Leukocyte esterase Test strip Ql (U) 1+ High Negative [facility] Comment on above: Order Comment: Name Collection Type:: Clean-Voided Midstream Performed By: #### E ODALIS, MG, CMP, CBC #### [address] Nitrite,Urine Positive High Negative [facility] Comment on above: Order Comment: Name Collection Type:: Clean-Voided Midstream Performed By: #### E ODALIS, MG, CMP, CBC #### [address] Occult Blood,Urine Negative Normal Negative [facility] Comment on above: Order Comment: Name Collection Type:: Clean-Voided Midstream Performed By: #### E ODALIS, MG, CMP, CBC #### [address] RBC LM.HPF (Urine sed) [#/Area] 0 /[HPF] Normal 0-4 [facility] Comment on above: Order Comment: Name Collection Type:: Clean-Voided Midstream Performed By: #### E ODALIS, MG, CMP, CBC #### [address] Specificy [place],Urine 1.042 High 1.001-1.030 [facility] Comment on above: Order Comment: Name Collection Type:: Clean-Voided Midstream Performed By: #### E ODALIS, MG, CMP, CBC #### [address] Squamous Epithelial Cell,Urine 3-4 High 0-2 [facility] Comment on above: Order Comment: Name Collection Type:: Clean-Voided Midstream Performed By: #### E ODALIS, MG, CMP, CBC #### [address] Urobilinogen,Urine Normal Normal Normal [facility] Comment on above: Order Comment: Name Collection Type:: Clean-Voided Midstream Performed By: #### E ODALIS, MG, CMP, CBC #### [address] WBC,Urine 1-2 Normal 0-4 [facility] Comment on above: Order Comment: Name Collection Type:: Clean-Voided Midstream Performed By: #### E ODALIS, MG, CMP, CBC #### [address] Drug Screen,Urineon 12-15-20 23 Amphetamine Screen,Urine Positive High Negative [facility] Comment on above: Performed By: #### E ODALIS, MG, CMP, CBC #### [address] Barbiturate Screen,Urine Positive High Negative [facility] Comment on above: Performed By: #### E ODALIS, MG, CMP, CBC #### [address] Benzodiazepines Screen,Urine Positive High Negative [facility] Comment on above: Performed By: #### E ODALIS, MG, CMP, CBC #### [address] Cannabinoid Screen,Urine Negative Normal Negative [facility] Comment on above: Result Comment: Thes e are unconfirmed results and should not be used for legal purposes. Drug Cut-Off Concentration: AMPH 1000 ng/mL JANELL 200 ng/mL JAMES 200 ng/mL COCM 300 ng/mL OP 300 ng/mL PCP 25 ng/mL THC 20 ng/mL PERFORMED BY: [place] [address] PATHOLOGIST [employer] LEE CARDOSO M.D. Performed By: #### E ODALIS, MG, CMP, CBC #### [address] Cocaine Screen,Urine Positive High Negative [facility] Comment on above: Performed By: #### E ODALIS, MG, CMP, CBC #### [address] Opiate Screen,Urine Negative Normal Negative [facility] Comment on above: Performed By: #### E ODALIS, MG, CMP, CBC #### [address] Phencyclidine Screen,Urine Negative Normal Negative [facility] Comment on above: Performed By: #### E ODALIS, MG, CMP, CBC #### [address] ECG 12 lead ECGon 01-25-[address]23 [address] [facility] Main [place] [address] [place] [address] Electrocardiograph Report Signed Patient: Lyle Bailey MR#: [id number] : 1990 Acct:[id number] Age/Sex: 33 / F ADM Date: 01/25/23 Loc: ER Room: Type: [facility] ER Attending Dr: Ordering Provider: Samanta Castro [...] was found Confirmed by SAMANTA CASTRO MD ([id number]) on 01/25/2023 3:59:06 AM Referred By: Electronically Signed By:SAMANTA CASTRO MD Transcribed By: MUS Signed By Samanta Castro Jr, [place] 0359 Normal [facility] Erythrocyte distribution wid th [Ratio] by Automated countOrdered By: Samanta Castro on 01-25-2023 Erythrocyte distribution width (RBC) [Ratio] 13.1 % Normal 11.9-15.3 [facility] Comment on above: Performed By: #### E ODALIS, MG, CMP, CBC #### [facility] [address] [place] [address] Erythrocytes [#/volume] in B lood by Automated countOrdered By: Samanta Castro on 01-25-2023 RBC (Bld) [#/Vol] 3.88 10*6/uL Normal 3.60-5.00 [facility] Comment on above: Performed By: #### E ODALIS, MG, CMP, CBC #### [facility] [address] [place] [address] [place] Ethanol [Mass/volume] in Ser um or PlasmaOrdered By: Samanta Castro on 01-25-2023 Ethanol [Mass/Vol] mg/dL Normal [facility] Comment on above: Performed By: #### E ODALIS, MG, CMP, CBC #### [facility] [address] [place] [address] [facility] Ethanol [Mass/Vol] TNP [facility] Comment on above: Test not performed Ethyl Alcohol Profileon 01-11 Percent Ethanol Not performed Normal [facility] Comment on above: Result Comment: PERF ORMED BY: [place] [address] PATHOLOGIST [employer] LEE CARDOSO M.D. Performed By: #### E ODALIS, MG, CMP, CBC #### [place] [id number] [place] Glucose [Mass/volume] in Ser um or PlasmaOrdered By: Samanta Castro on 01-25-2023 Glucose [Mass/Vol] 88 mg/dL Normal 70-100 [facility] Comment on above: ADA recommended refe rence rangeRandom Glucose Reference Range is dependent on time and content of last meal. Glucose of more than 200 mg/dL in a nonstressed, ambulatory subject supports the diagnosis of Diabetes Mellitus. Result Comment: [place] om Glucose Reference Range is dependent on time and content of last meal. Glucose of more than 200 mg/dL in a nonstressed, ambulatory subject supports the diagnosis of Diabetes Mellitus. ADA recommended reference range Performed By: #### E ODALIS, MG, CMP, CBC #### [place] [id number] [facility] HCG ( test) IA.rapi d Ql (U)Ordered By: Samanta Castro on 01-25-2023 HCG ( test) Ql (U) Negative [facility] HCG,Urineon 01-25-2023 Beta HCG ( test) Ql (U) Negative Normal [facility] Comment on above: Order Comment: Name Collection Type:: Clean-Voided Midstream Result Comment: PERF ORMED BY: [place] [address] PATHOLOGIST [employer] LEE CARDOSO M.D. Performed By: #### E ODALIS, MG, CMP, CBC #### [address] [address] [facility] Hematocrit [Volume Fraction] of Blood by Automated countOrdered By: Samanta Castro on 01-25-2023 Hematocrit (Bld) [Volume fraction] 38.3 % Normal 34.0-46.4 [facility] Comment on above: Performed By: #### E ODALIS, MG, CMP, CBC #### [facility] [address] Hemoglobin [Mass/volume] in BloodOrdered By: Samanta Castro on 01-25-2023 Hemoglobin (Bld) [Mass/Vol] 13.4 g/dL Normal 11.8-15.4 [facility] Comment on above: Performed By: #### E ODALIS, MG, CMP, CBC #### [address] Ketones Auto test strip (U) [Mass/Vol]Ordered By: Samanta Castro on 01-25-2023 Ketones (U) [Mass/Vol] Trace Negative [facility] Laboratory - UrinalysisOrder ed By: Samanta Castro on 01-25-2023 Hyaline casts LM Ql (Urine sed) 9-19 [LPF] 0-8 [facility] Leukocytes [#/volume] correc jose for nucleated erythrocytes in Blood by Automated counOrdered By: Samanta Castro on 01-25-2023 WBC corrected for nucl RBC Auto (Bld) [#/Vol] 7.4 10*3/uL 3.8-11.6 [facility] Leukocytes [#/volume] in Blo od by Automated countOrdered By: Samanta Castro on 01-25-2023 WBC (Bld) [#/Vol] 7.4 10*3/uL Normal 3.8-11.6 [facility] Comment on above: Performed By: #### E ODALIS, MG, CMP, CBC #### [facility] [address] Lymphocytes [#/volume] in Bl ood by Automated countOrdered By: Samanta Castro on 01-25-2023 Lymphocytes (Bld) [#/Vol] 2.7 10*3/uL Normal 1.00-4.8 [facility] Comment on above: Performed By: #### E ODALIS, MG, CMP, CBC #### [facility] [address] [place] [address] Lymphocytes/100 leukocytes i n Blood by Automated countOrdered By: Samanta Castro on 01-25-2023 Lymphocytes/100 WBC (Bld) 35.8 % Normal . [facility] Comment on above: Performed By: #### E ODALIS, MG, CMP, CBC #### [facility] [address] [place] [address] MCH [Entitic mass] by Automa jose countOrdered By: Samanta Castro on 01-25-2023 MCH (RBC) [Entitic mass] 34.4 pg High 24.7-34.3 [facility] Comment on above: Performed By: #### E ODALIS, MG, CMP, CBC #### [facility] [address] [place] [address] MCHC Auto (RBC) [Mass/Vol]Or dered By: Samanta Castro on 01-25-2023 MCHC (RBC) [Mass/Vol] 34.9 g/dL 32.0-35.0 [facility] MCV [Entitic volume] by Auto mated countOrdered By: Samanta Castro on 01-25-2023 MCV (RBC) [Entitic vol] 98.7 fL Normal 80-100 [facility] Comment on above: Performed By: #### E ODALIS, MG, CMP, CBC #### [facility] [address] [place] [address] Magnesium [Mass/volume] in S marbella or PlasmaOrdered By: Samanta Castro on 01-25-2023 Magnesium [Mass/Vol] 1.9 mg/dL Normal 1.9-2.[address] [facility] Comment on above: Result Comment: PERF ORMED BY: [place] [address] PATHOLOGIST [employer] LEE CARDOSO M.D. Performed By: #### E ODALIS, MG, CMP, CBC #### [facility] [address] [place] [address] Monocyte distribution width [Entitic volume] in Blood by AutomatedOrdered By: Samanta Castro on 01-25-2023 Monocyte distribution width Auto (Bld) [Entitic vol] 19.94 % 0.00-20.00 [facility] Neutrophils [#/volume] in Bl ood by Automated countOrdered By: Samanta Castro on 01-25-2023 Neutrophils (Bld) [#/Vol] 3.9 10*3/uL Normal 1.8-7.7 [facility] Comment on above: Performed By: #### E ODALIS, MG, CMP, CBC #### [facility] [address] Nitrite Test strip Ql (U)Ord ered By: Samanta Castro on 01-25-2023 Nitrite Ql (U) Positive Negative [facility] No Panel InformationOrdered By: Samanta Castro on 01-25-2023 Estimated GFR (CKD-EPI) > 60.0 mL/Min [facility] Creatinine Clearance (Chem 102.16 [facility] Nucleated erythrocytes [Pres ence] in Blood by Automated countOrdered By: Samanta Castro on 01-25-2023 Nucleated RBC Auto Ql (Bld) 0.1 /100{WBC} 0-0.5 [facility] Opiates [Presence] in Urine by Screen methodOrdered By: Samanta Castro on 01-25-2023 Opiates Screen Ql (U) Negative Negative [facility] Phencyclidine Screen Ql (U)O rdered By: Samanta Castro on 01-25-2023 Phencyclidine Ql (U) Negative Negative [facility] Platelet mean volume [Entiti c volume] in Blood by Automated countOrdered By: Samanta Castro on 01-25-2023 Platelet mean volume (Bld) [Entitic vol] 9.1 fL Normal 6.3-10.7 [facility] Comment on above: Performed By: #### E ODALIS, MG, CMP, CBC #### [facility] [address] Platelets [#/volume] in Bloo d by Automated countOrdered By: Samanta Castro on 01-25-2023 Platelets (Bld) [#/Vol] 124 10*3/uL Low 150-450 [facility] Comment on above: Performed By: #### E ODALIS, MG, CMP, CBC #### [place] [address] Potassium [Moles/volume] in Serum or PlasmaOrdered By: Samanta Castro on 01-25-2023 Potassium [Moles/Vol] 3.4 mmol/L Low 3.5-5.1 [facility] Comment on above: Performed By: #### E ODALIS, MG, CMP, CBC #### [address] [address] Protein [Mass/volume] in Ser um or PlasmaOrdered By: Samanta Castro on 01-25-2023 Protein [Mass/Vol] 7.8 g/dL Normal 6.4-8.9 [facility] Comment on above: Performed By: #### E ODALIS, MG, CMP, CBC #### [address] Quick Strepon 01-25-2023 Quick Strep Streptococcus pyogen es Ag [Presence] in Throat by Rapid immunoassay Negative for Group A Strep Antigen Note 1 NOTE 2 Results are those of a screening test. NOTE 3 If clinically indicated please order a culture. NOTE 4 NOTE 5 Reference range = Negative PERFORMED BY: [place] [address] PATHOLOGIST [employer] LEE CARDOSO M.D. Normal [facility] Comment on above: Performed By: #### C MP, LIPASE, CBC #### [address] Serum globulin measurement b y calculation (mass/volume)Ordered By: Samanta Castro on 01-25-2023 Globulin (S) [Mass/Vol] 3.4 g/dL Normal [facility] Comment on above: Performed By: #### E ODALIS, MG, CMP, CBC #### [address] Serum or plasma albumin/glob ulin mass ratioOrdered By: Samanta Castro on 01-25-2023 Albumin/Globulin [Mass ratio] 1.3 {ratio} Normal [facility] Comment on above: Performed By: #### E ODALIS MG, CMP, CBC #### [facility] [address] Serum or plasma anion gap de terminationOrdered By: Samanta Castro on 01-25-2023 Anion gap [Moles/Vol] 12.6 mmol/L Normal 6.0-15.[address] [facility] Comment on above: Performed By: #### E ODALIS MG, CMP, CBC #### [address] Sodium [Moles/volume] in Ser um or PlasmaOrdered By: Samanta Castro on 01-25-2023 Sodium [Moles/Vol] 136 mmol/L Normal 136-145 [facility] Comment on above: Performed By: #### E MG ODALIS, CMP, CBC #### [address] Specific gravity Auto test s trip (U) [Rel density]Ordered By: Samanta Castro on 01-25-2023 Specific gravity (U) [Rel density] 1.042 1.001-1.030 [facility] Squamous epithelial cells de tection in urine sediment by light microscopyOrdered By: Samanta Castro on 01-25-2023 Epithelial cells.squamous LM Ql (Urine sed) 3-4 [HPF] 0-2 [facility] Streptococcus pyogenes antig en detectionOrdered By: Samanta Castro on 01-25-2023 S. pyogenes Ag Ql (Unsp spec) [facility] Urea nitrogen [Mass/volume] in Serum or PlasmaOrdered By: Samanta Castro on 01-25-2023 Urea nitrogen [Mass/Vol] 13 mg/dL Normal 7-25 [facility] Comment on above: Performed By: #### E ODALIS, MG, CMP, CBC #### [address] Urine Cultureon 01-25-2023 Bacteria identified Cx Nom (U) ORGANISM: Strep agalactiae - (group b) (O:STRAGA) [place] Count 15,000 PERFORMED BY: [place] [address] PATHOLOGIST [employer] LEE CARDOSO M.D. Normal [facility] Comment on above: Performed By: #### E ODALIS, MG, CMP, CBC #### [facility] [address] Urine bacteria detection by automated methodOrdered By: Samanta Castro on 01-25-2023 Bacteria Auto Ql (U) None seen None Seen [facility] Urine clarity by refractomet ry automatedOrdered By: Samanta Castro on 01-25-2023 Clarity Refractometry automated (U) Clear Clear [facility] Urine culture routineOrdered By: Samanta Castro on 01-25-2023 Bacteria identified Cx Nom (U) Strep agalactiae - (group b) [facility] Urine glucose measurement by automated test strip (mass/volume)Ordered By: Samanta Castro on 01-25-2023 Glucose Auto test strip (U) [Mass/Vol] Normal mg/dL Normal [facility] Urine hemoglobin detection b y automated test stripOrdered By: Samanta Castro on 01-25-2023 Hemoglobin Auto test strip Ql (U) Negative Negative [facility] Urine leukocyte esterase det ection by automated test stripOrdered By: Samanta Castro on 01-25-2023 Leukocyte esterase Auto test strip Ql (U) 1+ Negative [facility] Urine pH measurement by auto mated test stripOrdered By: Samanta Castro on 01-25-2023 pH (U) 5.5 [pH] Normal 5.0-9.0 [facility] Comment on above: Order Comment: Name Collection Type:: Clean-Voided Midstream Performed By: #### E ODALIS, MG, CMP, CBC #### [facility] [address] [place] [address] Urine protein measurement by automated test strip (mass/volume)Ordered By: Samanta Castro on 01-25-2023 Protein (U) [Mass/Vol] 30 mg/dL High Negative [facility] Comment on above: Order Comment: Name Collection Type:: Clean-Voided Midstream Performed By: #### E ODALIS, MG, CMP, CBC #### [facility] [address] Urobilinogen Auto test strip (U) [Mass/Vol]Ordered By: Samanta Castro on 01-25-2023 Urobilinogen (U) [Mass/Vol] Normal mg/dL Normal [facility] ED Note-Physicianon 01-22-20 ED Note-Physician [id number] F Normal [facility] Alanine aminotransferase [En zymatic activity/volume] in Serum or PlasmaOrdered By: Pavel Yao on 01-19-2023 ALT [Catalytic activity/Vol] 142 U/L High 7-52 [facility] Comment on above: Performed By: #### C MP, LIPASE, CBC #### [address] Albumin [Mass/volume] in Ser um or Plasma by Bromocresol green (BCG) dye binding methoOrdered By: Pavel Yao on 01-19-2023 Albumin BCG dye [Mass/Vol] 4.4 g/dL 3.5-5.7 [facility] Alkaline phosphatase [Enzyma tic activity/volume] in Serum or PlasmaOrdered By: Pavel Yao on 01-19-2023 ALP [Catalytic activity/Vol] 87 U/L Normal 34-104 [facility] Comment on above: Performed By: #### C MP, LIPASE, CBC #### [address] Aspartate aminotransferase [ Enzymatic activity/volume] in Serum or PlasmaOrdered By: Pavel Yao on 01-19-2023 AST [Catalytic activity/Vol] 220 U/L High 13-39 [facility] Comment on above: Performed By: #### C MP, LIPASE, CBC #### [address] Automated basophil %Ordered By: Pavel Yao on 01-19-2023 Basophils/100 WBC (Bld) 1.0 % Normal . [facility] Comment on above: Performed By: #### C MP, LIPASE, CBC #### [address] Automated basophil countOrde red By: Pavel Yao on 01-19-2023 Basophils (Bld) [#/Vol] 0.1 10*3/uL Normal 0.0-0.2 [facility] Comment on above: Result Comment: PERF ORMED BY: [place] [address] PATHOLOGIST [employer] LEE CARDOSO M.D. Performed By: #### C MP, LIPASE, CBC #### [address] Automated blood monocyte cou ntOrdered By: Pavel Yao on 01-19-2023 Monocytes (Bld) [#/Vol] 0.3 10*3/uL Normal 0.0-0.8 [facility] Comment on above: Performed By: #### C MP, LIPASE, CBC #### [address] Automated eosinophil %Ordere d By: Pavel Yao on 01-19-2023 Eosinophils/100 WBC (Bld) 0.9 % Normal . [facility] Comment on above: Performed By: #### C MP, LIPASE, CBC #### [address] Automated eosinophil countOr dered By: Pavel Yao on 01-19-2023 Eosinophils (Bld) [#/Vol] 0.1 10*3/uL Normal 0.0-0.45 [facility] Comment on above: Performed By: #### C MP, LIPASE, CBC #### [address] Automated erythrocytes count in urine sediment (number/area)Ordered By: Pavel Yao on 01-19-2023 RBC Auto (Urine sed) [#/Area] 0-1 [HPF] 0-4 [facility] Automated leukocytes count i n urine sediment (number/area)Ordered By: Pavel Yao on 01-19-2023 WBC Auto (Urine sed) [#/Area] 0-1 [HPF] 0-4 [facility] Automated monocyte %Ordered By: Pavel Yao on 01-19-2023 Monocytes/100 WBC (Bld) 5.2 % Normal . [facility] Comment on above: Performed By: #### C MP, LIPASE, CBC #### [facility] [address] Automated neutrophil %Ordere d By: Pavel Yao on 01-19-2023 Neutrophils/100 WBC (Bld) 53.1 % Normal . [facility] Comment on above: Performed By: #### C MP, LIPASE, CBC #### [facility] [address] Automated urine color determ inationOrdered By: Pavel Yao on 01-19-2023 Color (U) Yellow Normal Yellow [facility] Comment on above: Order Comment: Name Collection Type:: Clean-Voided Midstream Performed By: #### C MP, LIPASE, CBC #### [address] Bilirubin Test strip Ql (U)O rdered By: Pavel Yao on 01-19-2023 Bilirubin Ql (U) Negative Negative [facility] Bilirubin.total [Mass/volume ] in Serum or PlasmaOrdered By: Pavel Yao on 01-19-2023 Bilirubin [Mass/Vol] 0.6 mg/dL Normal 0.3-1.[address] [facility] Comment on above: Performed By: #### C MP, LIPASE, CBC #### [address] Calcium [Mass/volume] in Ser um or PlasmaOrdered By: Pavel Yao on 01-19-2023 Calcium [Mass/Vol] 8.9 mg/dL Normal 8.6-10.3 [facility] Comment on above: Performed By: #### C MP, LIPASE, CBC #### [address] Carbon dioxide, total [Moles /volume] in Serum or PlasmaOrdered By: Pavel Yao on 01-19-2023 CO2 [Moles/Vol] 23.2 mmol/L Normal 21.0-31.0 [facility] Comment on above: Performed By: #### C MP, LIPASE, CBC #### [address] Chloride [Moles/volume] in S marbella or PlasmaOrdered By: Pavel Yao on 01-19-2023 Chloride [Moles/Vol] 102 mmol/L Normal 98-[address] [facility] Comment on above: Performed By: #### C MP, LIPASE, CBC #### [address] Complete Blood Count Auto Di ffon 01-19-2023 Mean Corpuscular HGB Conc 35.0 g/dL Normal 32.0-35.0 [facility] Comment on above: Performed By: #### C MP, LIPASE, CBC #### [address] Monocytes/100 WBC (Bld) 14.57 % Normal 0.00-20.00 [facility] Comment on above: Performed By: #### C MP, LIPASE, CBC #### [facility] [address] [place] [address] NRBC% 0.2 /100{WBC} Normal 0-0.[address] [facility] Comment on above: Performed By: #### C MP, LIPASE, CBC #### [facility] [address] [place] [address] Comprehensive Metabolic Pane mary beth 01-19-2023 Albumin [Mass/Vol] 4.4 g/dL Normal 3.5-5.7 [facility] Comment on above: Performed By: #### C MP, LIPASE, CBC #### [address] Creatinine Clr Calc Pharmacy 128.34 Normal [facility] Comment on above: Performed By: #### C MP, LIPASE, CBC #### [facility] [address] [place] [address] GFR/1.73 sq M.predicted MDRD (S/P/Bld) [Vol rate/Area] mL/min/{1.73_m2} Normal [facility] Comment on above: Performed By: #### C MP, LIPASE, CBC #### [facility] [address] Creatinine [Mass/volume] in Serum or PlasmaOrdered By: Pavel Yao on 01-19-2023 Creatinine [Mass/Vol] 0.60 mg/dL Normal 0.60-1.20 [facility] Comment on above: Performed By: #### C MP, LIPASE, CBC #### [facility] [address] [place] [address] [place] Dipstick and Microscopicon 1 03-22-2022 Appearance (U) Clear Normal Clear [facility] Comment on above: Order Comment: Name Collection Type:: Clean-Voided Midstream Performed By: #### C MP, LIPASE, CBC #### [address] Bacteria,Urine 1+ High None Seen [facility] Comment on above: Order Comment: Name Collection Type:: Clean-Voided Midstream Performed By: #### C MP, LIPASE, CBC #### [place] [address] [place] Bilirubin,Urine Negative Normal Negative [facility] Comment on above: Order Comment: Name Collection Type:: Clean-Voided Midstream Performed By: #### C MP, LIPASE, CBC #### [address] Glucose Ql (U) Normal Normal Normal [facility] Comment on above: Order Comment: Name Collection Type:: Clean-Voided Midstream Performed By: #### C MP, LIPASE, CBC #### [place] [address] [place] Hyaline Casts,Urine 0-8 Normal 0-8 [facility] Comment on above: Order Comment: Name Collection Type:: Clean-Voided Midstream Performed By: #### C MP, LIPASE, CBC #### [place] [address] [place] Ketones Ql (U) Negative Normal Negative [facility] Comment on above: Order Comment: Name Collection Type:: Clean-Voided Midstream Performed By: #### C MP, LIPASE, CBC #### [address] Leukocyte esterase Test strip Ql (U) Negative Normal Negative [facility] Comment on above: Order Comment: Name Collection Type:: Clean-Voided Midstream Performed By: #### C MP, LIPASE, CBC #### [address] Nitrite,Urine Negative Normal Negative [facility] Comment on above: Order Comment: Name Collection Type:: Clean-Voided Midstream Performed By: #### C MP, LIPASE, CBC #### [address] Occult Blood,Urine Negative Normal Negative [facility] Comment on above: Order Comment: Name Collection Type:: Clean-Voided Midstream Performed By: #### C MP, LIPASE, CBC #### [address] Protein,Urine Trace High Negative [facility] Comment on above: Order Comment: Name Collection Type:: Clean-Voided Midstream Performed By: #### C MP, LIPASE, CBC #### [address] RBC LM.HPF (Urine sed) [#/Area] 0 /[HPF] Normal 0-4 [facility] Comment on above: Order Comment: Name Collection Type:: Clean-Voided Midstream Performed By: #### C MP, LIPASE, CBC #### [address] Specificy [place],Urine 1.025 Normal 1.001-1.030 [facility] Comment on above: Order Comment: Name Collection Type:: Clean-Voided Midstream Performed By: #### C MP, LIPASE, CBC #### [address] Squamous Epithelial Cell,Urine 1-2 Normal 0-2 [facility] Comment on above: Order Comment: Name Collection Type:: Clean-Voided Midstream Performed By: #### C MP, LIPASE, CBC #### [facility] [address] Urobilinogen,Urine Normal Normal Normal [facility] Comment on above: Order Comment: Name Collection Type:: Clean-Voided Midstream Performed By: #### C MP, LIPASE, CBC #### [facility] [address] WBC LM.HPF (Urine sed) [#/Area] 0 /[HPF] Normal 0-4 [facility] Comment on above: Order Comment: Name Collection Type:: Clean-Voided Midstream Performed By: #### C MP, LIPASE, CBC #### [facility] [address] ECG 12 lead ECGon 01-19-2023 ECG [address] [facility] Main [place] [address] [place] [address] Electrocardiograph Report Signed Patient: Lyle Bailey MR#: [id number] : 1990 Acct:[id number] Age/Sex: 33 / F ADM Date: 01/19/23 Loc: ER Room: Type: [facility] ER Attending Dr: Ordering Provider: Pavel Yao [...] Rightward axis Confirmed by Pavel YAO DO ([id number]) on 01/19/2023 12:17:21 PM Referred By: Electronically Signed By:Pavel YAO DO Transcribed By: MUS Signed By Pavel Yao DO 1 03/22/22 1217 Normal [facility] Erythrocyte distribution wid th [Ratio] by Automated countOrdered By: Pavel Yao on 01-19-2023 Erythrocyte distribution width (RBC) [Ratio] 13.2 % Normal 11.9-15.3 [facility] Comment on above: Performed By: #### C MP, LIPASE, CBC #### [facility] [address] Erythrocytes [#/volume] in B lood by Automated countOrdered By: Pavel Yao on 01-19-2023 RBC (Bld) [#/Vol] 4.13 10*6/uL Normal 3.60-5.00 [facility] Comment on above: Performed By: #### C MP, LIPASE, CBC #### [facility] [address] Glucose [Mass/volume] in Ser um or PlasmaOrdered By: Pavel Yao on 01-19-2023 Glucose [Mass/Vol] 82 mg/dL Normal 70-100 [facility] Comment on above: ADA recommended refe rence rangeRandom Glucose Reference Range is dependent on time and content of last meal. Glucose of more than 200 mg/dL in a nonstressed, ambulatory subject supports the diagnosis of Diabetes Mellitus. Result Comment: [place] om Glucose Reference Range is dependent on time and content of last meal. Glucose of more than 200 mg/dL in a nonstressed, ambulatory subject supports the diagnosis of Diabetes Mellitus. ADA recommended reference range Performed By: #### C MP, LIPASE, CBC #### [address] HCG ( test) IA.rapi d Ql (U)Ordered By: Pavel Yao on 01-19-2023 HCG ( test) Ql (U) Negative [facility] HCG,Urineon 01-19-2023 Beta HCG ( test) Ql (U) Negative Normal [facility] Comment on above: Order Comment: Name Collection Type:: Clean-Voided Midstream Result Comment: PERF ORMED BY: [place] [address] PATHOLOGIST [employer] LEE CARDOSO M.D. Performed By: #### C MP, LIPASE, CBC #### [address] Hematocrit [Volume Fraction] of Blood by Automated countOrdered By: Pavel Yao on 01-19-2023 Hematocrit (Bld) [Volume fraction] 40.5 % Normal 34.0-46.4 [facility] Comment on above: Performed By: #### C MP, LIPASE, CBC #### [address] Hemoglobin [Mass/volume] in BloodOrdered By: Pavel Yao on 01-19-2023 Hemoglobin (Bld) [Mass/Vol] 14.2 g/dL Normal 11.8-15.4 [facility] Comment on above: Performed By: #### C MP, LIPASE, CBC #### [address] Ketones Auto test strip (U) [Mass/Vol]Ordered By: Pavel Yao on 01-19-2023 Ketones (U) [Mass/Vol] Negative Negative [facility] Laboratory - UrinalysisOrder ed By: Pavel Yao on 01-19-2023 Hyaline casts LM Ql (Urine sed) 0-8 [LPF] 0-8 [facility] Leukocytes [#/volume] correc jose for nucleated erythrocytes in Blood by Automated counOrdered By: Pavel Yao on 01-19-2023 WBC corrected for nucl RBC Auto (Bld) [#/Vol] 6.2 10*3/uL 3.8-11.6 [facility] Leukocytes [#/volume] in Blo od by Automated countOrdered By: Pavel Yao on 01-19-2023 WBC (Bld) [#/Vol] 6.2 10*3/uL Normal 3.8-11.6 [facility] Comment on above: Performed By: #### C MP, LIPASE, CBC #### [address] Lipase [Enzymatic activity/v olume] in Serum or PlasmaOrdered By: Pavel Yao on 01-19-2023 Lipase [Catalytic activity/Vol] 53.0 U/L Normal 11.0-82.0 [facility] Comment on above: Result Comment: PERF ORMED BY: [place] [address] PATHOLOGIST [employer] LEE CARDOSO M.D. Performed By: #### C MP, LIPASE, CBC #### [address] Lymphocytes [#/volume] in Bl ood by Automated countOrdered By: Pavel Yao on 01-19-2023 Lymphocytes (Bld) [#/Vol] 2.4 10*3/uL Normal 1.00-4.8 [facility] Comment on above: Performed By: #### C MP, LIPASE, CBC #### [address] Lymphocytes/100 leukocytes i n Blood by Automated countOrdered By: Pavel Yao on 01-19-2023 Lymphocytes/100 WBC (Bld) 39.8 % Normal . [facility] Comment on above: Performed By: #### C MP, LIPASE, CBC #### [address] MCH [Entitic mass] by Automa jose countOrdered By: Pavel Yao on 01-19-2023 MCH (RBC) [Entitic mass] 34.3 pg Normal 24.7-34.3 [facility] Comment on above: Performed By: #### C MP, LIPASE, CBC #### [address] MCHC Auto (RBC) [Mass/Vol]Or dered By: Pavel Yao on 01-19-2023 MCHC (RBC) [Mass/Vol] 35.0 g/dL 32.0-35.0 [facility] MCV [Entitic volume] by Auto mated countOrdered By: Pavel Yao on 01-19-2023 MCV (RBC) [Entitic vol] 97.9 fL Normal 80-100 [facility] Comment on above: Performed By: #### C MP, LIPASE, CBC #### [address] Monocyte distribution width [Entitic volume] in Blood by AutomatedOrdered By: Pavel Yao on 01-19-2023 Monocyte distribution width Auto (Bld) [Entitic vol] 14.57 % 0.00-20.00 [facility] Neutrophils [#/volume] in Bl ood by Automated countOrdered By: Pavel Yao on 01-19-2023 Neutrophils (Bld) [#/Vol] 3.3 10*3/uL Normal 1.8-7.7 [facility] Comment on above: Performed By: #### C MP, LIPASE, CBC #### [facility] [address] Nitrite Test strip Ql (U)Ord ered By: Pavel Yao on 01-19-2023 Nitrite Ql (U) Negative Negative [facility] No Panel InformationOrdered By: Pavel Yao on 01-19-2023 Estimated GFR (CKD-EPI) > 60.0 mL/Min [facility] Creatinine Clearance (Chem 128.34 [facility] Nucleated erythrocytes [Pres ence] in Blood by Automated countOrdered By: Pavel Yao on 01-19-2023 Nucleated RBC Auto Ql (Bld) 0.2 /100{WBC} 0-0.5 [facility] Platelet mean volume [Entiti c volume] in Blood by Automated countOrdered By: Pavel Yao on 01-19-2023 Platelet mean volume (Bld) [Entitic vol] 7.6 fL Normal 6.3-10.7 [facility] Comment on above: Performed By: #### C MP, LIPASE, CBC #### [address] Platelets [#/volume] in Bloo d by Automated countOrdered By: Pavel Yao on 01-19-2023 Platelets (Bld) [#/Vol] 183 10*3/uL Normal 150-450 [facility] Comment on above: Performed By: #### C MP, LIPASE, CBC #### [place] [address] [place] Potassium [Moles/volume] in Serum or PlasmaOrdered By: Pavel Yao on 01-19-2023 Potassium [Moles/Vol] 3.8 mmol/L Normal 3.5-5.1 [facility] Comment on above: Performed By: #### C MP, LIPASE, CBC #### [address] Protein Auto test strip (U) [Mass/Vol]Ordered By: Pavel Yao on 01-19-2023 Protein (U) [Mass/Vol] Trace mg/dL Negative [facility] Protein [Mass/volume] in Ser um or PlasmaOrdered By: Pavel Yao on 01-19-2023 Protein [Mass/Vol] 8.1 g/dL Normal 6.4-8.9 [facility] Comment on above: Performed By: #### C MP, LIPASE, CBC #### [address] Serum globulin measurement b y calculation (mass/volume)Ordered By: Pavel Yao on 01-19-2023 Globulin (S) [Mass/Vol] 3.7 g/dL Normal [facility] Comment on above: Performed By: #### C MP, LIPASE, CBC #### [address] Serum or plasma albumin/glob ulin mass ratioOrdered By: Pavel Yao on 01-19-2023 Albumin/Globulin [Mass ratio] 1.2 {ratio} [facility] Comment on above: Performed By: #### C MP, LIPASE, CBC #### [address] Serum or plasma anion gap de terminationOrdered By: Pavel Yao on 01-19-2023 Anion gap [Moles/Vol] 15.6 mmol/L High 6.0-15.[address] [facility] Comment on above: Performed By: #### C MP, LIPASE, CBC #### [address] Sodium [Moles/volume] in Ser um or PlasmaOrdered By: Pavel Yao on 01-19-2023 Sodium [Moles/Vol] 137 mmol/L Normal 136-145 [facility] Comment on above: Performed By: #### C MP, LIPASE, CBC #### [address] Specific gravity Auto test s trip (U) [Rel density]Ordered By: Pavel Yao on 01-19-2023 Specific gravity (U) [Rel density] 1.025 1.001-1.030 [facility] Squamous epithelial cells de tection in urine sediment by light microscopyOrdered By: Pavel Yao on 01-19-2023 Epithelial cells.squamous LM Ql (Urine sed) 1-2 [HPF] 0-2 [facility] Urea nitrogen [Mass/volume] in Serum or PlasmaOrdered By: Pavel Yao on 01-19-2023 Urea nitrogen [Mass/Vol] 13 mg/dL Normal 7-25 [facility] Comment on above: Performed By: #### C MP, LIPASE, CBC #### [facility] [address] Urine bacteria detection by automated methodOrdered By: Pavel Yao on 01-19-2023 Bacteria Auto Ql (U) 1+ None Seen [facility] Urine clarity by refractomet ry automatedOrdered By: Pavel Yao on 01-19-2023 Clarity Refractometry automated (U) Clear Clear [facility] Urine glucose measurement by automated test strip (mass/volume)Ordered By: Pavel Yao on 01-19-2023 Glucose Auto test strip (U) [Mass/Vol] Normal mg/dL Normal [facility] Urine hemoglobin detection b y automated test stripOrdered By: Pavel Yao on 01-19-2023 Hemoglobin Auto test strip Ql (U) Negative Negative [facility] Urine leukocyte esterase det ection by automated test stripOrdered By: Pavel Yao on 01-19-2023 Leukocyte esterase Auto test strip Ql (U) Negative Negative [facility] Urine pH measurement by auto mated test stripOrdered By: Pavel Yao on 01-19-2023 pH (U) 6.5 [pH] Normal 5.0-9.0 [facility] Comment on above: Order Comment: Name Collection Type:: Clean-Voided Midstream Performed By: #### C MP, LIPASE, CBC #### [facility] [address] [place] [address] [place] Urobilinogen Auto test strip (U) [Mass/Vol]Ordered By: Pavel Yao on 01-19-2023 Urobilinogen (U) [Mass/Vol] Normal mg/dL Normal [facility] Neurology Forms- Texton 12-0 Neurology Forms- Text [id number]#1.00TIF F Normal [facility] EEGon 01-12-2023 EEG Normal [facility] Comment on above: Result Comment: Elec tronically Signed By: Francisco Cruz MD\.br\Date and Time Signed: 01/12/23 08:10 EST Discharge Instructionson Discharge Instructions [id number]#1.00TI FF Normal [facility] Insurance Correspondence Off ice01-08-2023 Insurance Correspondence Office [id number]#1.00T IFF Normal [facility] Progress Note-Nurseon 2022 Progress Note-Nurse [id number]#1.00TI FF Normal [facility] Consent for Treatmenton 12-13 Consent for Treatment [id number]#1.00TI FF Normal [facility] Discharge Instructionson Discharge Instructions [id number]#1.00TI FF Normal [facility] ED Clinical Summaryon 2022 ED Clinical Summary Normal [facility] ED Note-Physicianon 01-08-20 ED Note-Physician Normal [facility] Comment on above: Result Comment: Elec tronically Signed By: Darren Guzman DO.br\Date and Time Signed: 01/07/23 00:23 EST ED Patient Education Noteon 01-07-2023 ED Patient Education Note Normal [facility] ED Patient Summaryon 023 ED Patient Summary Normal [facility] Insurance Correspondence Off ice01-07-2023 Insurance Correspondence Office [id number]#1.00TI FF Normal [facility] Pre-Arrival Noteon 11-27-202 3 Pre-Arrival Note Normal [facility] BMPon 01-06-2023 Anion gap [Moles/Vol] 11 mmol/L Normal 6-16 [facility] Comment on above: Performed By: #### 2 849124, 22299895, 42413010, 8040733, 4931324, 0754886 ####[facility] [address] [place] [address] Calcium [Mass/Vol] 8.6 mg/dL Low 8.9-11.1 [facility] Comment on above: Performed By: #### 2 843137, 18145289, 27584206, 7103055, 8908764, 2842719 ####[facility] [address] [place] [place] [address] Chloride [Moles/Vol] 106 mmol/L Normal 101-111 [facility] Comment on above: Performed By: #### 2 881772, 94490846, 63428073, 6151354, 5563737, 3291961 ####[facility] [address] [place] [address] CO2 [Moles/Vol] 21 mmol/L Normal 21-31 [facility] Comment on above: Performed By: #### 2 739886, 20971457, 13302798, 2747270, 5433418, 9919080 ####[facility] [address] AveNthe [place] [address] Creatinine [Mass/Vol] 0.5 mg/dL Normal 0.5-1.3 [facility] Comment on above: Performed By: #### 2 718605, 41655188, 00105873, 3634682, 1043055, 2630249 ####[facility] [address] [place] [address] Glucose [Mass/Vol] 87 mg/dL Normal 55-199 [facility] Comment on above: Result Comment: If t his glucose result represents a fasting glucose, interpretation should refer to the following reference range: 55-99 mg/dL Performed By: #### 2 006510, 14982215, 41808781, 8766053, 9327606, 4622791 ####[facility] [address] [place] [address] Potassium [Moles/Vol] 4.2 mmol/L Normal 3.5-5.3 [facility] Comment on above: Performed By: #### 2 235427, 01098068, 97653872, 9189936, 3987042, 1101305 ####[facility] [address] [place] [address] Sodium [Moles/Vol] 134 mmol/L Low 135-145 [facility] Comment on above: Performed By: #### 2 721894, 78341268, 44674728, 0412836, 4163450, 8445031 ####[facility] [address] [place] [address] Urea nitrogen [Mass/Vol] 11 mg/dL Normal 5-21 [facility] Comment on above: Performed By: #### 2 078795, 95764764, 83209361, 9459192, 1068466, 4684407 ####[facility] [address] [place] [address] Urea nitrogen/Creatinine [Mass ratio] 22 No Units High 10-20 [facility] Comment on above: Performed By: #### 2 541883, 76433788, 36581938, 0280993, 4604830, 5826852 ####[facility] [address] [place] [address] CHEMISTRYOrdered By: SYSTEM SYSTEM on 01-06-2023 Albumin [Mass/Vol] 3.5 g/dL Normal 3.3 - 5.0 gm/dL [facility] Albumin/Globulin [Mass ratio] 1.0 {ratio} Low 1.1 - 2.2 [facility] Remisol ALP [Catalytic activity/Vol] 86 [iU]/d Normal 21 - 98 Int._Unit/L [facility] Remisol ALT No additional P-5'-P [Catalytic activity/Vol] 142 [iU]/d High 6 - 46 Int._Unit/L [facility] Anion gap [Moles/Vol] 11 mmol/L Normal 6 - 16 mEq/L [facility] Remisol AST [Catalytic activity/Vol] 239 [iU]/d High [...] 129 mL/min/1.73 m2 Normal >=59mL/min/1 .73 m2 [facility] Chem S Comment on above: Interpretive Data: [...] 11 mg/dL Normal 5 - 21 mg/dL [facility] Remisol Urea nitrogen/Creatinine [Mass ratio] 22 mg/mg High 10 - 20 [facility] Remisol Free T4on 01-06-2023 Free T4 [Mass/Vol] 0.80 ng/dL Normal 0.58-1.64 [facility] Comment on above: Order Comment: Free T4 added by Discern Rule due to a TSH result of <0.34 or >5.60. Performed By: #### 2 592778, 28757190, 25290291, 5264403, 6021513, 3950413 ####[facility] [address] [place] [address] HEMATOLOGYOrdered By: Marlyn Villa on 01-06-2023 Platelets (Bld) [#/Vol] 116.0 E9/L Low 150.0 - 500.0 E9/L [facility] HemeAutoSS Hep Func Panelon 01-06-2023 Albumin [Mass/Vol] 3.5 g/dL Normal 3.3-5.0 [facility] Comment on above: Performed By: #### 2 001202, 96726731, 97671943, 1145453, 6515871, 0756912 ####[facility] [address] [place] [address] Albumin/Globulin (S) [Mass conc ratio] 1.0 Low 1.1-2.2 [facility] Comment on above: Performed By: #### 2 706537, 08471280, 62423135, 3297037, 3329221, 7103951 ####[facility] [address] [place] [address] ALP [Catalytic activity/Vol] 86 Int._Unit/L Normal 21-98 [facility] Comment on above: Performed By: #### 2 961920, 26984242, 76503928, 9459549, 9630532, 1700647 ####[facility] [address] [place] [address] ALT No additional P-5'-P [Catalytic activity/Vol] 142 Int._Unit/L [facility] 6-46 [facility] Comment on above: Performed By: #### 2 711011, 09204895, 05615784, 5575747, 4980296, 1025691 ####[address] [place] [address] AST [Catalytic activity/Vol] 239 Int._Unit/L [facility] 5-43 [facility] Comment on above: Performed By: #### 2 801312, 56394101, 21451959, 2441798, 5145231, 6727667 ####[address] [address] Bilirubin [Mass/Vol] 1.1 mg/dL Normal 0.0-1.1 [facility] Comment on above: Performed By: #### 2 642231, 38254201, 54223149, 0995229, 5453043, 4166582 ####[place] [address] Bilirubin.direct [Mass/Vol] 0.3 mg/dL Normal 0.1-0.4 [facility] Comment on above: Performed By: #### 2 062112, 89701800, 50991981, 6658422, 8311965, 4611874 ####[address] [address] Bilirubin.indirect [Mass or moles/Vol] 0.8 mg/dL Normal 0.1-0.9 [facility] Comment on above: Performed By: #### 2 608274, 73775802, 45643917, 1243591, 9831626, 2981439 ####[facility] [address] [place] [address] Globulin (S) [Mass/Vol] 3.6 g/dL Normal 1.4-4.0 [facility] Comment on above: Performed By: #### 2 062843, 16376563, 24406989, 0614461, 5688576, 5239091 ####[facility] [address] [place] [address] Protein [Mass/Vol] 7.1 g/dL Normal 6.0-7.8 [facility] Comment on above: Performed By: #### 2 129231, 30702478, 48169684, 9213892, 0752260, 2052326 ####[facility] [address] [place] [address] Inpatient Clinical Summaryon 01-06-2023 Inpatient Clinical Summary Normal [facility] Inpatient Patient Summaryon 01-06-2023 Inpatient Patient Summary Normal [facility] Inpatient Patient Summary Normal [facility] Interdisciplinary Note - Alonso e Manageron 01-06-2023 Interdisciplinary Note - Door Worker Per nursing and hospitalist. Mother will be transporting pt home at 230 today. LVM for mom. Pt denied rehab services. CRM spoke to mother and pt, mother is agreeable to taking pt into her custody and care. Ari RN witnessed conversation. Normal [facility] Comment on above: Result Comment: Elec tronically Signed By: Marlyn Echols\.br\Date and Time Signed: 01/06/23 14:35 EST Monitor Recordon 01-06-2023 Monitor Record [id number] [facility] [id number]#1.00TI FF Normal [facility] Monitor Record [id number] [facility] [id number]#1.00TI FF Normal [facility] Platelet Counton 01-06-2023 Platelets (Bld) [#/Vol] 116.0 E9/L Low 150.0-500.0 [facility] Comment on above: Performed By: #### 2 778975, 95186890, 24634544, 8936401, 4726055, 5130884 ####[facility] [address] [place] [address] Progress Note-Nurseon 2022 Progress Note-Nurse Normal [facility] Progress Note-Nurse Normal [facility] Progress Note-Physicianon Progress Note-Physician Normal [facility] Comment on above: Result Comment: Elec tronically Signed By: Awa BAUTISTA, Bekah Chatman\.br\Date and Time Signed: 01/06/23 07:04 EST\.br\Electronically Co-Signed By: Francisco Cruz MD\.br\Date and Time Co-Signed: 01/06/23 09:26 EST TSH With T4fr Reflexon 01-06 TSH Qn 5.89 m[IU]/L High 0.34-5.60 [facility] Comment on above: Performed By: #### 2 031792, 06496619, 37151668, 7938426, 3138296, 4417198 ####[facility] [address] [place] [address] eGFRon 01-06-2023 GFR/1.73 sq M.predicted among non-blacks MDRD (S/P/Bld) [Vol rate/Area] 129 mL/min/1.73 m2 Normal >=59 [facility] Comment on above: Order Comment: Order added by Discern Expert. Result Comment: Project Financial Analyst justin kidney disease could be indicated at eGFR's of less than 60 mL/min/1.73m2. Kidney failure is indicated at less than 15 mL/min/1.73m2. Performed By: #### 2 316301, 12386004, 26707278, 9033096, 6404022, 5449903 ####[facility] [address] [place] [address] Auto Diffon 2023 Basophils/100 WBC (Bld) 1.3 % Normal 0.0-2.0 [facility] Comment on above: Order Comment: Order Added by Discern Expert. Performed By: #### 2 546734, 6618661, 81500123, 9709544, 2761109, 6051912, 3851727 ####[facility] [address] [place] [address] Basophils/Leukocytes Auto (Bld) [Pure # fraction] 0.1 E9/L Normal 0.0-0.2 [facility] Comment on above: Order Comment: Order Added by Discern Expert. Performed By: #### 2 636147, 2841464, 07568568, 0959372, 6905476, 9067070, 2558420 ####[facility] [address] [place] [address] Eosinophils/100 WBC (Bld) 1.8 % Normal 0.0-8.0 [facility] Comment on above: Order Comment: Order Added by Discern Expert. Performed By: #### 2 841267, 7542910, 17360545, 7184827, 0870643, 5237494, 3675136 ####[address] [place] [address] Eosinophils/Leukocyte s Auto (Bld) [Pure # fraction] 0.1 E9/L Normal 0.0-0.5 [facility] Comment on above: Order Comment: Order Added by Discern Expert. Performed By: #### 2 669334, 1225853, 65787611, 8421402, 2178154, 9096207, 6462191 ####[address] [place] [address] Lymphocytes/100 WBC (Bld) 46.8 % Normal 14.0-50.0 [facility] Comment on above: Order Comment: Order Added by Radha Expert. Performed By: #### 2 785876, 0437334, 44008828, 7815686, 4708853, 5024623, 5469202 ####[address] [place] [address] Lymphocytes/Leukocyte s Auto (Bld) [Pure # fraction] 2.6 E9/L Normal 1.0-4.0 [facility] Comment on above: Order Comment: Order Added by Radha Expert. Performed By: #### 2 883739, 8365922, 08903768, 3062871, 9905720, 4932249, 2662318 ####[address] [place] [address] Monocytes/100 WBC (Bld) 5.4 % Normal 4.0-14.0 [facility] Comment on above: Order Comment: Order Added by Discern Expert. Performed By: #### 2 123536, 4336214, 61269235, 6775711, 9294848, 4053846, 8399751 ####[facility] [address] [place] [address] Monocytes/Leukocytes Auto (Bld) [Pure # fraction] 0.3 E9/L Normal 0.2-1.0 [facility] Comment on above: Order Comment: Order Added by Discern Expert. Performed By: #### 2 927871, 4633054, 99310569, 8264941, 6005257, 6312089, 0101312 ####[address] [place] [address] Neutrophils/100 WBC (Bld) 44.7 % Normal 36.0-75.0 [facility] Comment on above: Order Comment: Order Added by Radha Expert. Performed By: #### 2 059007, 3450140, 69574762, 9499834, 4411056, 4087279, 0062478 ####[address] [place] [address] Neutrophils/Leukocyte s Auto (Bld) [Pure # fraction] 2.5 E9/L Normal 2.0-7.5 [facility] Comment on above: Order Comment: Order Added by Radha Expert. Performed By: #### 2 438669, 7281786, 40281778, 8614959, 9793461, 9386432, 9214351 ####[address] [place] [address] Basophils/100 WBC (Bld) 0.7 % Normal 0.0-2.0 [facility] Comment on above: Order Comment: Order Added by Radha Expert. Performed By: #### 2 852580, 30336615, 7798482, 4248952, 0714388, 72185554, 29376117 ####[address] [place] [address] Basophils/Leukocytes Auto (Bld) [Pure # fraction] 0.1 E9/L Normal 0.0-0.2 [facility] Comment on above: Order Comment: Order Added by Discern Expert. Performed By: #### 2 302519, 93781161, 1218587, 4560009, 1557570, 60192085, 65369279 ####[address] [place] [address] Eosinophils/100 WBC (Bld) 1.2 % Normal 0.0-8.0 [facility] Comment on above: Order Comment: Order Added by Discern Expert. Performed By: #### 2 240825, 25080249, 7086934, 6470448, 1924404, 85739957, 91903211 ####[address] [address] Eosinophils/Leukocyte s Auto (Bld) [Pure # fraction] 0.1 E9/L Normal 0.0-0.5 [facility] Comment on above: Order Comment: Order Added by Discern Expert. Performed By: #### 2 411270, 01654406, 2902894, 8552738, 6424333, 55323523, 39457917 ####[address] [address] Lymphocytes/100 WBC (Bld) 40.2 % Normal 14.0-50.0 [facility] Comment on above: Order Comment: Order Added by Discern Expert. Performed By: #### 2 620716, 51691473, 9217951, 5022171, 5079579, 16115430, 23426702 ####[address] [place] [address] Lymphocytes/Leukocyte s Auto (Bld) [Pure # fraction] 4.1 E9/L High 1.0-4.0 [facility] Comment on above: Order Comment: Order Added by Radha Expert. Performed By: #### 2 715915, 71093605, 7662567, 1500578, 9516516, 52931450, 50587969 ####[address] [address] Monocytes/100 WBC (Bld) 4.6 % Normal 4.0-14.0 [facility] Comment on above: Order Comment: Order Added by Discern Expert. Performed By: #### 2 647363, 14747150, 5355570, 7012166, 2458589, 90136697, 32249166 ####[facility] [address] [place] [address] Monocytes/Leukocytes Auto (Bld) [Pure # fraction] 0.5 E9/L Normal 0.2-1.0 [facility] Comment on above: Order Comment: Order Added by Discern Expert. Performed By: #### 2 756316, 16000841, 3513298, 6808622, 2067421, 96952167, 00598197 ####[facility] [address] [place] [address] Neutrophils/100 WBC (Bld) 53.3 % Normal 36.0-75.0 [facility] Comment on above: Order Comment: Order Added by Discern Expert. Performed By: #### 2 449134, 82172587, 1276749, 5164741, 5535594, 70500245, 98490087 ####[facility] [address] [place] [address] Neutrophils/Leukocyte s Auto (Bld) [Pure # fraction] 5.5 E9/L Normal 2.0-7.5 [facility] Comment on above: Order Comment: Order Added by Discern Expert. Performed By: #### 2 912420, 53964511, 6916880, 9838174, 5789991, 87902826, 51806001 ####[facility] [address] [place] [address] B hCG Qualon 2023 Beta HCG ( test) Ql Negative Normal [facility] Comment on above: Performed By: #### 2 1232462 ####[facility] [address] [place] [address] BMPon 2023 Creatinine [Mass/Vol] 0.7 mg/dL Normal 0.5-1.3 [facility] Comment on above: Performed By: #### 2 637792, 7649726, 43635812, 8967042, 8803879, 8040543, 6062242 ####[facility] [address] [place] [address] Urea nitrogen [Mass/Vol] 15 mg/dL Normal 5-21 [facility] Comment on above: Performed By: #### 2 315286, 6883649, 47408012, 3412253, 9264801, 7887513, 5059368 ####[facility] [address] [place] [address] Urea nitrogen/Creatinine [Mass ratio] 21 No Units High 10-20 [facility] Comment on above: Performed By: #### 2 491876, 5153129, 14198162, 7691736, 1305760, 7260548, 4310334 ####[facility] [address] [place] [address] Anion gap [Moles/Vol] 13 mmol/L Normal 6-16 [facility] Comment on above: Performed By: #### 2 362560, 9899552, 46307817, 5702095, 2459607, 7417324, 6944433 ####[facility] [address] [place] [address] Calcium [Mass/Vol] 8.3 mg/dL Low 8.9-11.1 [facility] Comment on above: Performed By: #### 2 091595, 1012595, 14980806, 6136886, 6011236, 2055227, 3262262 ####[facility] [address]N[facility] [place] [address] Chloride [Moles/Vol] 107 mmol/L Normal 101-111 [facility] Comment on above: Performed By: #### 2 919283, 4133069, 81025213, 2698434, 0592948, 1981044, 3692461 ####[facility] [address] [place] [address] CO2 [Moles/Vol] 22 mmol/L Normal 21-31 [facility] Comment on above: Performed By: #### 2 702688, 6420938, 56701828, 2402612, 5283378, 8267585, 6611395 ####[facility] [address] [place] [address] Glucose [Mass/Vol] 93 mg/dL Normal 55-199 [facility] Comment on above: Result Comment: If t his glucose result represents a fasting glucose, interpretation should refer to the following reference range: 55-99 mg/dL Performed By: #### 2 702522, 0622790, 80508638, 6450375, 7329848, 6395557, 9444627 ####[facility] [address] [place] [address] Potassium [Moles/Vol] 3.8 mmol/L Normal 3.5-5.3 [facility] Comment on above: Performed By: #### 2 947513, 6981041, 30353902, 8199794, 8613003, 0481826, 4624908 ####[facility] [address] [place] [address] Sodium [Moles/Vol] 138 mmol/L Normal 135-145 [facility] Comment on above: Performed By: #### 2 578541, 3876914, 79622229, 7075945, 6550665, 0056926, 7002140 ####[facility] [address] [place] [address] Creatinine [Mass/Vol] 0.8 mg/dL Normal 0.5-1.3 [facility] Comment on above: Performed By: #### 2 512949, 00108777, 5035338, 3732910, 9787274, 37872684, 56603582 ####[facility] [address] [place] [address] Urea nitrogen [Mass/Vol] 13 mg/dL Normal 5-21 [facility] Comment on above: Performed By: #### 2 209921, 52972513, 7980106, 3768901, 2126223, 48206031, 06237243 ####[facility] [address] [place] [address] Urea nitrogen/Creatinine [Mass ratio] 16 No Units Normal 10-20 [facility] Comment on above: Performed By: #### 2 452507, 93291022, 1104807, 1627295, 3737117, 96097483, 50444903 ####[facility] [address] [place] [address] Anion gap [Moles/Vol] 13 mmol/L Normal 6-16 [facility] Comment on above: Performed By: #### 2 668709, 27442262, 5960590, 5843880, 1010762, 96683152, 76728671 ####[facility] [address] [place] [address] Calcium [Mass/Vol] 8.6 mg/dL Low 8.9-11.1 [facility] Comment on above: Performed By: #### 2 445274, 35616199, 8042329, 2179490, 5523699, 59428999, 22303398 ####[facility] [address] [place] [address] Chloride [Moles/Vol] 106 mmol/L Normal 101-111 [facility] Comment on above: Performed By: #### 2 291152, 00981254, 2900493, 5154334, 1936113, 37231009, 90982262 ####[facility] [address] [place] [address] CO2 [Moles/Vol] 23 mmol/L Normal 21-31 [facility] Comment on above: Performed By: #### 2 507573, 88241025, 8875764, 7044697, 1919347, 48534333, 92350603 ####[facility] [address] [place] [address] Glucose [Mass/Vol] 91 mg/dL Normal 55-199 [facility] Comment on above: Result Comment: If t his glucose result represents a fasting glucose, interpretation should refer to the following reference range: 55-99 mg/dL Performed By: #### 2 873534, 84721613, 0179518, 6907574, 5542373, 37683417, 91250270 ####[facility] [address] [place] [address] Potassium [Moles/Vol] 3.8 mmol/L Normal 3.5-5.3 [facility] Comment on above: Performed By: #### 2 355369, 18023789, 5408653, 5242093, 0696747, 49725679, 56645658 ####[facility] [address] [place] [address] Sodium [Moles/Vol] 138 mmol/L Normal 135-145 [facility] Comment on above: Performed By: #### 2 517457, 12668715, 9207157, 7779188, 9762378, 75269660, 80494338 ####[facility] [address] [place] [address] CBC w/ Auto Diffon Erythrocyte distribution width (RBC) [Ratio] 12.8 % Normal 10.9-14.2 [facility] Comment on above: Performed By: #### 2 720566, 9513076, 75018872, 4149049, 6840504, 4906388, 5694712 ####[facility] [address] [place] [address] Hematocrit (Bld) [Volume fraction] 39.6 % Normal 34.0-46.0 [facility] Comment on above: Performed By: #### 2 645761, 7741017, 67071607, 1370261, 3628051, 0341528, 1396475 ####[facility] [address] [place] [address] Hemoglobin (Bld) [Mass/Vol] 13.7 g/dL Normal 12.0-16.0 [facility] Comment on above: Performed By: #### 2 076367, 7395435, 77230827, 4102977, 7786777, 5212732, 1943710 ####[facility] [address] [place] [address] MCH (RBC) [Entitic mass] 33.8 pg Normal 27.0-34.0 [facility] Comment on above: Performed By: #### 2 920093, 0186983, 84884371, 2318469, 2142480, 9697044, 7235060 ####[address] [place] [address] MCHC (RBC) [Mass/Vol] 34.5 g/dL Normal 31.4-36.0 [facility] Comment on above: Performed By: #### 2 213854, 0801033, 62147819, 2909217, 9934682, 2482958, 3277954 ####[address] [address] MCV (RBC) [Entitic vol] 98.0 fL Normal 80.0-100.0 [facility] Comment on above: Performed By: #### 2 536607, 2886899, 00096934, 6812503, 1549854, 0290433, 5053171 ####[address] [address] Platelet mean volume (Bld) [Entitic vol] 8.8 fL Normal 6.4-10.8 [facility] Comment on above: Performed By: #### 2 368959, 3470991, 35672551, 8342547, 4504979, 6925582, 6968674 ####[address] [place] [address] Platelets (Bld) [#/Vol] 124.0 E9/L Low 150.0-500.0 [facility] Comment on above: Performed By: #### 2 179550, 2653689, 70218619, 1863007, 9383941, 5103118, 8587320 ####[address] [address] RBC (Bld) [#/Vol] 4.0 E12/L Low 4.3-5.9 [facility] Comment on above: Performed By: #### 2 128445, 4296983, 82055016, 2310225, 6703014, 1523341, 2575448 ####[facility] [address] [place] [address] WBC corrected for nucl RBC Auto (Bld) [#/Vol] 5.6 E9/L Normal 4.0-11.0 [facility] Comment on above: Performed By: #### 2 383986, 1572605, 04881393, 8003897, 1698794, 5612346, 9360814 ####[place] [place] [address] Erythrocyte distribution width (RBC) [Ratio] 13.3 % Normal 10.9-14.2 [facility] Comment on above: Performed By: #### 2 151622, 27726673, 0779679, 5273692, 1098172, 88739334, 78801661 ####[facility] [address] [place] [address] Hematocrit (Bld) [Volume fraction] 44.7 % Normal 34.0-46.0 [facility] Comment on above: Performed By: #### 2 283204, 68798507, 4313961, 4154470, 9233731, 97434574, 40113528 ####[address] [place] [address] Hemoglobin (Bld) [Mass/Vol] 15.6 g/dL Normal 12.0-16.0 [facility] Comment on above: Performed By: #### 2 893634, 23274017, 3354352, 2340179, 4867456, 07338660, 61699703 ####[facility] [address] [place] [address] MCH (RBC) [Entitic mass] 34.3 pg High 27.0-34.0 [facility] Comment on above: Performed By: #### 2 681303, 70386966, 6352937, 8503883, 1922621, 01076918, 41106469 ####[address] [place] [address] MCHC (RBC) [Mass/Vol] 34.9 g/dL Normal 31.4-36.0 [facility] Comment on above: Performed By: #### 2 180312, 15096874, 4704388, 6606888, 4158741, 53790650, 35641466 ####[facility] [address] [place] [address] MCV (RBC) [Entitic vol] 98.4 fL Normal 80.0-100.0 [facility] Comment on above: Performed By: #### 2 018120, 09373578, 9650872, 5474899, 0602655, 99734538, 62624688 ####[address] [place] [address] Platelet mean volume (Bld) [Entitic vol] 9.1 fL Normal 6.4-10.8 [facility] Comment on above: Performed By: #### 2 951968, 25306879, 5009417, 1307218, 1501758, 70250556, 32750427 ####[address] [place] [address] Platelets (Bld) [#/Vol] 197.0 E9/L Normal 150.0-500.0 [facility] Comment on above: Performed By: #### 2 977077, 30481410, 9589806, 0640119, 2413966, 71035608, 60560595 ####[address] [place] [address] RBC (Bld) [#/Vol] 4.5 E12/L Normal 4.3-5.9 [facility] Comment on above: Performed By: #### 2 975847, 14296463, 2835774, 9850842, 2592394, 87152623, 27016677 ####[facility] [address] [place] [address] WBC corrected for nucl RBC Auto (Bld) [#/Vol] 10.3 E9/L Normal 4.0-11.0 [facility] Comment on above: Performed By: #### 2 621628, 20381013, 4432638, 4278162, 7253133, 87790519, 90994153 ####[facility] [address] [place] [address] CHEMISTRYOrdered By: SYSTEM SYSTEM on 2023 Ethanol [...] 119 mL/min/1.73 m2 Normal >=59mL/min/1 .73 m2 [facility] Chem S Comment on above: Interpretive Data: C hronic kidney disease could be indicated at eGFR's of less than 60 mL/min/1.73m2. Kidney failure is indicated at less than 15 mL/min/1.73m2. Globulin (S) [Mass/Vol] 3.4 g/dL Normal 1.4 - 4.0 gm/dL [facility] Remisol Glucose [Mass/Vol] 93 mg/dL Normal 55 - 199 mg/dL [facility] [...] - 5.3 mmol/L [facility] Remisol Protein [Mass/Vol] 6.7 g/dL Normal 6.0 [...] 101 mL/min/1.73 m2 Normal >=59mL/min/1 .73 m2 [facility] Chem S Comment on above: Interpretive Data: [...] 138 mmol/L Normal 135 - 145 mmol/L [facility] Remisol Troponin I.cardiac [Mass/Vol] 5.50 pg/mL Low 10.10 - 27.10 pg/mL [facility] Remisol Comment on above: Interpretive Data: T he 95% CI (Confidence Interval) PPV (Positive Predictive Value) for myocardial infarction in females is 38 pg/mL, in males 51 pg/mL. The results should be used in conjunction with clinical conditions of myocardial infarction. (Access High Sensitivity Troponin I Instructions For Use, [facility] [place], September 2017) Urea nitrogen [Mass/Vol] 13 mg/dL Normal 5 - 21 mg/dL [facility] Remisol Urea nitrogen/Creatinine [Mass ratio] 16 mg/mg Normal 10 - 20 [facility] COAGULATIONOrdered By: Vivek Contreras on 2023 aPTT Coag (PPP) [Time] 35.2 s Normal 25.1 - 36.5 second(s) [facility] Auto Coag Comment on above: Interpretive Data: [...] the same coagulation reagent and instrumentation as [facility]. Currently there are no coagulation studies available worldwide for children to 14 days, and no normal ranges. Heparin therapeutic range (represented by Anti-Factor Xa activity of 0.2 - 0.4 U/mL) corresponds to PTT of 56.6 - 109.0 sec. INR Coag (PPP) [Relative time] 1.2 {INR} Invalid Interpretation Code [facility] Auto Coag Comment on above: Interpretive Data: I NR results are specifically intended to assess patients stabilized on long-term Anticoagulation therapy suggested INR s Less Intensive Anticoagulation 2.0 3.0 Conventional Range 3.0 4.5 PT Coag (PPP) [Time] 13.6 s High 9.4 - 1 2.5 second(s) [facility] Auto Coag Comment on above: Interpretive Data: [...] the same coagulation reagent and instrumentation as [facility]. Currently there are no coagulation studies available worldwide for children to 14 days, and no normal ranges. CT Head or Brain w/o Contras ton 2023 CT Head or Brain w/o Contrast Normal [facility] CT Spine Cervical w/o Contra ston 2023 CT Spine Cervical w/o Contrast Normal [facility] Consent for Treatmenton 12-13 Consent for Treatment [id number]#[id number] FF Normal [facility] Consultation Noteon 01-06-20 Consultation Note Normal [facility] Comment on above: Result Comment: Elec tronically Signed By: Sekou Mi LPN, Lisa M\.br\Date and Time Signed: 01/05/23 07:45 EST\.br\Electronically Co-Signed By: Francisco Cruz MD\.br\Date and Time Co-Signed: 01/05/23 09:14 EST ED Clinical Summaryon 2022 ED Clinical Summary Normal Robby soliman [facility] ED Note-Physicianon 01-06-20 ED Note-Physician Normal [facility] Comment on above: Result Comment: Elec tronically Signed By: Kerry Linton DO\.br\Date and Time Signed: 01/05/23 04:23 EST ED Patient Education Noteon 2023 ED Patient Education Note Normal [facility] ED Patient Summaryon 023 ED Patient Summary Normal [facility] Ethanolon 2023 Ethanol [Mass/Vol] mg/dL Normal <=7 [facility] Comment on above: Performed By: #### 2 513088 ####[facility] [address] [place] [address] Ethanol [Mass/Vol] 83 mg/dL Abnormal <=7 [facility] Comment on above: Order Comment: Unsuc cessful attempts to collect labs, other phlebotomists notified. HH Result Comment: Crit ical Result S_ETOH:83.0 Called to [facility] AT ICU by ERNESTO REYNAGA And Read Back For Confirmation at: 2023 10:13:51\Critical Result verified by repeat analysis Performed By: #### 2 898793 ####[facility] [address] [place] [address] Ethanol [Mass/Vol] 266 mg/dL Abnormal <=7 [facility] Comment on above: Result Comment: Crit ical Result verified by repeat analysis\Critical Result S_ETOH:266.0 Called to [facility] AT ER by MANUEL CONTRERAS And Read Back For Confirmation at: 2023 02:33:18 Performed By: #### 2 641436 ####[facility] [address] [place] [address] HEMATOLOGYOrdered By: SYSTEM SYSTEM on 2023 Basophils/100 [...] 10.3 E9/L Normal 4.0 - 11.0 E9/L [facility] HemeAutoSS Hep Func Panelon 2023 Albumin [Mass/Vol] 3.3 g/dL Normal 3.3-5.0 [facility] Comment on above: Performed By: #### 2 644354, 1542160, 26583092, 0465343, 5492344, 6599482, 9043904 ####[facility] [address] [place] [address] Albumin/Globulin (S) [Mass conc ratio] 1.0 Low 1.1-2.2 [facility] Comment on above: Performed By: #### 2 958404, 6048528, 00430145, 6864171, 0828538, 5317162, 5351076 ####[facility] [address] [place] [address] ALP [Catalytic activity/Vol] 86 Int._Unit/L Normal 21-98 [facility] Comment on above: Performed By: #### 2 981814, 1528311, 69949304, 4952186, 9607396, 9896890, 0223002 ####[facility] [address] [place] [address] ALT No additional P-5'-P [Catalytic activity/Vol] 145 Int._Unit/L High 6-46 [facility] Comment on above: Performed By: #### 2 806859, 2973921, 31975003, 3011707, 6049200, 0719592, 4068719 ####[facility] [address] [place] [address] AST [Catalytic activity/Vol] 298 Int._Unit/L High 5-43 [facility] Comment on above: Performed By: #### 2 136277, 5174220, 62336594, 0188201, 1858067, 9416295, 1281585 ####[facility] [address] [place] [address] Bilirubin [Mass/Vol] 0.4 mg/dL Normal 0.0-1.1 [facility] Comment on above: Performed By: #### 2 386256, 5941252, 76131998, 8512291, 2974389, 4561244, 4377552 ####[facility] [address] [place] [address] Bilirubin.direct [Mass/Vol] 0.2 mg/dL Normal 0.1-0.4 [facility] Comment on above: Performed By: #### 2 444332, 6838963, 87061092, 7841516, 1603736, 9943452, 0607941 ####[facility] [address] [place] [address] Bilirubin.indirect [Mass or moles/Vol] 0.2 mg/dL Normal 0.1-0.9 [facility] Comment on above: Performed By: #### 2 728489, 3174534, 86006881, 9499214, 1478467, 0464227, 4198927 ####[facility] [address] [place] [address] Globulin (S) [Mass/Vol] 3.4 g/dL Normal 1.4-4.0 [facility] Comment on above: Performed By: #### 2 755585, 4446053, 40159432, 9199970, 1268286, 5123894, 8027698 ####[address] [place] [address] Protein [Mass/Vol] 6.7 g/dL Normal 6.0-7.8 [facility] Comment on above: Performed By: #### 2 350794, 3330553, 41342945, 2569989, 5391716, 3928110, 8157628 ####[address] [place] [address] Albumin [Mass/Vol] 3.8 g/dL Normal 3.3-5.0 [facility] Comment on above: Performed By: #### 2 241451, 68594971, 7877022, 5149050, 0072397, 82694246, 84865891 ####[address] [place] [address] Albumin/Globulin (S) [Mass conc ratio] 0.9 Low 1.1-2.2 [facility] Comment on above: Performed By: #### 2 211203, 52748598, 3075864, 5147286, 7264756, 37600335, 15014622 ####[facility] [address] [place] [address] ALP [Catalytic activity/Vol] 103 Int._Unit/L High 21-98 [facility] Comment on above: Performed By: #### 2 573957, 90662878, 0555298, 1583839, 4506879, 76222779, 43291810 ####[address] [place] [address] ALT No additional P-5'-P [Catalytic activity/Vol] 159 Int._Unit/L High 6-46 [facility] Comment on above: Performed By: #### 2 944472, 18082161, 9260553, 7579762, 7710929, 45557772, 82009911 ####[facility] [address] [place] [address] AST [Catalytic activity/Vol] 337 Int._Unit/L High 5-43 [facility] Comment on above: Performed By: #### 2 447195, 63922546, 9152518, 1777647, 1502162, 04101769, 06300258 ####[facility] [address] [place] [address] Bilirubin [Mass/Vol] 0.3 mg/dL Normal 0.0-1.1 [facility] Comment on above: Performed By: #### 2 581961, 79116874, 9229833, 4771304, 2042095, 16882082, 85911799 ####[facility] [address] [place] [address] Bilirubin.direct [Mass/Vol] 0.1 mg/dL Normal 0.1-0.4 [facility] Comment on above: Performed By: #### 2 785828, 29632562, 1407539, 1043284, 1731854, 49559429, 15319832 ####[facility] [address] [place] [address] Bilirubin.indirect [Mass or moles/Vol] 0.2 mg/dL Normal 0.1-0.9 [facility] Comment on above: Performed By: #### 2 774636, 39674786, 8087770, 2170767, 5028250, 41017021, 00976345 ####[facility] [address] [place] [address] Globulin (S) [Mass/Vol] 4.1 g/dL High 1.4-4.0 [facility] Comment on above: Performed By: #### 2 621197, 92415274, 3342953, 4815643, 8098071, 97580553, 79119248 ####[facility] [address] [place] [address] Protein [Mass/Vol] 7.9 g/dL High 6.0-7.8 [facility] Comment on above: Performed By: #### 2 216397, 35551298, 0548156, 7449266, 5954488, 66388578, 21489678 ####[facility] [address] [place] [address] Interdisciplinary Note - Alonso e Manageron 2023 Interdisciplinary Note - Door Worker Normal [facility] Comment on above: Result Comment: Elec tronically Signed By: Katy Wood\.br\Date and Time Signed: 01/05/23 14:50 EST Magnesiumon 2023 Magnesium [Mass/Vol] 1.4 mg/dL Normal 1.3-2.4 [facility] Comment on above: Performed By: #### 2 296979, 6071578, 72984110, 6013765, 9230350, 1189314, 5073756 ####[facility] [address] [place] [address] Monitor Recordon 2023 Monitor Record [id number]#1.00TI FF Normal [facility] Monitor Record [id number] [facility] [id number]#1.00TI FF Normal [facility] Monitor Record [id number]#1.00TI FF Normal [facility] Monitor Record [id number]#1.00TI FF Normal [facility] PT & PTTon 2023 aPTT Coag (PPP) [Time] 35.2 second(s) Normal 25.1-36.5 [facility] Comment on above: Result Comment: Para meter [...] the same coagulation reagent and instrumentation as [facility]. Currently there are no coagulation studies available worldwide for children to 14 days, and no normal ranges. Heparin therapeutic range (represented by Anti-Factor Xa activity of 0.2 - 0.4 U/mL) corresponds to PTT of 56.6 - 109.0 sec. Performed By: #### 2 904683, 97103038, 0814384, 8208368, 3912860, 59249421, 72072770 ####[facility] [address] [place] [address] INR Coag (PPP) [Relative time] 1.2 {INR} Invalid Interpretation Code [facility] Comment on above: Result Comment: INR results are specifically intended to assess patients stabilized on long-term Anticoagulation therapy suggested INR?s ?Less Intensive Anticoagulation? 2.0 ? 3.0Conventional Range 3.0 ? 4.5 Performed By: #### 2 261151, 69806324, 4879759, 3483622, 1710323, 23394719, 82369523 ####[facility] [address] [place] [address] PT Coag (PPP) [Time] 13.6 second(s) High 9.4-12.5 [facility] Comment on above: Result Comment: 15 d [...] the same coagulation reagent and instrumentation as [facility]. Currently there are no coagulation studies available worldwide for children to 14 days, and no normal ranges. Performed By: #### 2 510920, 23631915, 5243588, 2181527, 0919900, 31879253, 00874977 ####[facility] [address] [place] [address] Phosphoruson 2023 Phosphate [Mass/Vol] 2.7 mg/dL Normal 1.9-4.6 [facility] Comment on above: Performed By: #### 2 783090, 0589078, 70355651, 9093238, 0685649, 2837586, 8426722 ####[facility] [address] [place] [address] Pre-Arrival Noteon 3 Pre-Arrival Note Normal [facility] RAD - Preliminary Cat Scan R eporton 2023 RAD - Preliminary Cat Scan Report [id number]#1.00TIF F Normal [facility] SEROLOGYOrdered By: Alejandra Contreras on 2023 Beta HCG ( test) Ql Negative (01/05/23 1:58 AM) Normal [facility] Man Sero Troponin 0 Hr.on 2023 Troponin I.cardiac [Mass/Vol] 5.50 pg/mL Low 10.10-27.10 [facility] Comment on above: Result Comment: The 95% CI (Confidence Interval) PPV (Positive Predictive Value) for myocardial infarction in females is 38 pg/mL, in males 51 pg/mL. The results should be used in conjunction with clinical conditions of myocardial infarction.(Access High Sensitivity Troponin I Instructions For Use, [facility] [place], September 2017) Performed By: #### 2 723109, 61119697, 4027397, 1029086, 9784646, 23414455, 20034844 ####[facility] [address] [place] [address] U Drug Screenon 2023 Barbiturates Screen Ql (U) Positive Abnormal Negative [facility] Comment on above: Result Comment: Crit ical Result verified by repeat analysis\No confirmation requested by Physican\Unconfirmed by alternate method\Critical Result UD_BARB:POS Called to [facility] AT ER by MANUEL CONTRERAS And Read Back For Confirmation at: 2023 03:46:52Negative Cutoff: <200 ng/mL Performed By: #### 2 230616 ####[address] [address] Benzodiazepines Ql (U) Positive Abnormal Negative [facility] Comment on above: Result Comment: Crit ical Result verified by repeat analysis\No confirmation requested by Physican\Unconfirmed by alternate method\Critical Result UD_BENZ:POS Called to [facility] AT ER by MANUEL CONTRERAS And Read Back For Confirmation at: 2023 03:46:52Negative Cutoff: <200 ng/mL Performed By: #### 2 039886 ####[address] [address] Amphetamines Screen method >1000 ng/mL Ql (U) Negative Normal Negative [facility] Comment on above: Result Comment: Nega tive Cutoff: <1000 ng/mL Performed By: #### 2 487289 ####[address] [address] Cocaine Ql (U) Negative Normal Negative [facility] Comment on above: Result Comment: Nega tive Cutoff: <300 ng/mL Performed By: #### 2 637758 ####[address] [address] Opiates Screen Ql (U) Negative Normal Negative [facility] Comment on above: Result Comment: Nega tive Cutoff: <300 ng/mL Performed By: #### 2 480309 ####[address] [address] Phencyclidine Screen method >25 ng/mL Ql (U) Negative Normal Negative [facility] Comment on above: Result Comment: Nega tive Cutoff: <25 ng/mLThese drug screen results are to be used for medical (i.e., treatment) purposes only. Unconfirmed drug screening results must not be used for non-medical purposes (e.g., employment testing, legal testing). Performed By: #### 2 558640 ####[facility] [address] [place] [address] Tetrahydrocannabinol Screen method >50 ng/mL Ql (U) Negative Normal Negative [facility] Comment on above: Result Comment: Nega tive Cutoff: <50 ng/mL Performed By: #### 2 938257 ####[facility] [address] [place] [address] UA With Cult Reflexon 2022 Bacteria LM Ql (Urine sed) TRACE Normal Trace [facility] Comment on above: Performed By: #### 1 9183338 ####[facility] [address] [place] [address] Bilirubin Ql (U) Negative Normal Negative [facility] Comment on above: Performed By: #### 1 7150681 ####[facility] [address] [place] [address] Clarity (U) CLEAR Normal Clear [facility] Comment on above: Performed By: #### 1 8640121 ####[facility] [address] [place] [address] Color (U) YELLOW Normal Yellow [facility] Comment on above: Performed By: #### 1 0060797 ####[facility] [address] [place] [address] Crystals LM Ql (Urine sed) Present Normal [facility] Comment on above: Performed By: #### 1 6342531 ####[facility] [address] [place] [address] Epithelial cells.squamous LM.HPF (Urine sed) [#/Area] 0-2 Normal 0-2 [facility] Comment on above: Performed By: #### 1 1677607 ####[facility] [address] [facility] [place] [address] Glucose Test strip (U) [Mass/Vol] Negative Normal Negative [facility] Comment on above: Performed By: #### 1 6382866 ####[facility] [address] [facility] [place] [address] Hemoglobin Ql (U) 1+ Abnormal Negative [facility] Comment on above: Performed By: #### 1 8275036 ####[facility] [address] [facility] [place] [address] Ketones (U) [Mass/Vol] Negative Normal Negative [facility] Comment on above: Performed By: #### 1 7057187 ####[facility] [address] [place] [address], [place] [address] [place].plasma/Lithiu m.RBC (Bld) [Mass ratio] 0-3 Normal 0-3 [facility] Comment on above: Performed By: #### 1 5674306 ####[facility] [address] [facility] [place] [address] Mucus Ql (Urine sed) TRACE Normal [facility] Comment on above: Performed By: #### 1 4911862 ####[facility] [address] [facility] [place] [address] Nitrite Ql (U) Negative Normal Negative [facility] Comment on above: Performed By: #### 1 2185344 ####[facility] [address] [facility] [place] [address] pH (U) 6.5 [pH] Invalid Interpretation Code 5.0-9.0 [facility] Comment on above: Performed By: #### 1 3343906 ####[facility] [address] [facility] [place] [address] Protein (U) [Mass/Vol] Negative Normal Negative [facility] Comment on above: Performed By: #### 1 9982924 ####[facility] [address] [facility] [place] [address] Specific gravity (U) [Rel density] 1.020 Invalid Interpretation Code 1.005-1.030 [facility] Comment on above: Performed By: #### 1 1971188 ####[address] [place] [address] Type of Urine collection method Clean Catch Normal [facility] Comment on above: Performed By: #### 1 4209271 ####[place] [address] Urobilinogen Qn (U) 0.2 {Surinder'U}/dL Normal 0.0-1.0 [facility] Comment on above: Performed By: #### 1 6394301 ####[place] [address] WBC Auto Ql (U) Negative Normal Negative [facility] Comment on above: Performed By: #### 1 0178036 ####[place] [address] WBC LM.HPF (Urine sed) [#/Area] 0-5 Normal 0-5 [facility] Comment on above: Performed By: #### 1 2005995 ####[place] [address] URINALYSISOrdered By: Arlene Contreras on 2023 Bacteria LM Ql (Urine sed) Trace /HPF Normal Trace/HPF [facility] UA Auto SS Bilirubin Ql (U) Negative (01/05/23 3:02 AM) Normal Negative [facility] UA Auto SS Clarity (U) Clear (01/05/23 3:02 AM) Normal Clear [facility]A Auto SS Color (U) Yellow (01/05/23 3:02 AM) Normal Yellow [facility] UA Auto SS Crystals LM Ql (Urine sed) Present (01/05/23 3:02 AM) Normal [facility]A Auto SS Epithelial cells.squamous LM.HPF (Urine sed) [#/Area] 0-2 /HPF Normal 0-2/HPF [facility] UA Aut o SS Glucose Test strip (U) [Mass/Vol] Negative (01/05/23 3:02 AM) Normal Negative [facility] UA Auto SS Hemoglobin Ql (U) 1+ *ABN* (01/05/23 3:02 AM) Invalid Interpretation Code Negative [facility] UA Auto SS Ketones (U) [Mass/Vol] Negative (01/05/23 3:02 AM) Normal Negative [facility] UA Auto SS [place].plasma/Lithiu m.RBC (Bld) [Mass ratio] 0-3 /HPF Normal [...] Desc Clean Catch (01/05/23 3:02 AM) Normal [facility] UA Auto SS Urobilinogen Qn (U) 0.6952180 {Surinder'U}/dL Normal 0.0 - 1.0 EU/dL [facility] UA Auto SS WBC Auto Ql (U) Negative (01/05/23 3:02 AM) Normal Negative [facility] UA Auto SS WBC LM.HPF (Urine sed) [#/Area] 0-5 /HPF Normal 0-5/HPF [facility] UA Auto SS XR Chest Single Viewon 01-05 XR Chest Single View Normal [facility] XR Knee Complete 4+ Views Le fton 2023 XR Knee Complete 4+ Views Left Normal [facility] eGFRon 2023 GFR/1.73 sq M.predicted among non-blacks MDRD (S/P/Bld) [Vol rate/Area] 119 mL/min/1.73 m2 Normal >=59 [facility] Comment on above: Order Comment: Order added by Discern Expert. Result Comment: Project Financial Analyst justin kidney disease could be indicated at eGFR's of less than 60 mL/min/1.73m2. Kidney failure is indicated at less than 15 mL/min/1.73m2. Performed By: #### 2 601925, 6976228, 17057091, 6829837, 2885211, 3174605, 7207293 ####[facility] [address] [place] [address] GFR/1.73 sq M.predicted among non-blacks MDRD (S/P/Bld) [Vol rate/Area] 101 mL/min/1.73 m2 Normal >=59 [facility] Comment on above: Order Comment: Order added by Discern Expert. Result Comment: Project Financial Analyst justin kidney disease could be indicated at eGFR's of less than 60 mL/min/1.73m2. Kidney failure is indicated at less than 15 mL/min/1.73m2. Performed By: #### 2 674748, 81861302, 5674878, 7732516, 9300634, 36435217, 15558645 ####[facility] [address] [place] [address] Auto Diffon 01-02-2023 Basophils/100 WBC (Bld) 0.7 % Normal 0.0-2.0 [facility] Comment on above: Order Comment: Order Added by Discern Expert. Performed By: #### 2 126142, 75500134, 1902607, 6577656, 1738644, 85257238, 29301672 ####[facility] [address] [place] [address] Basophils/Leukocytes Auto (Bld) [Pure # fraction] 0.1 E9/L Normal 0.0-0.2 [facility] Comment on above: Order Comment: Order Added by Discern Expert. Performed By: #### 2 533788, 08618777, 0728176, 6807627, 3318129, 29603902, 88283616 ####[facility] [address] [place] [address] Eosinophils/100 WBC (Bld) 1.3 % Normal 0.0-8.0 [facility] Comment on above: Order Comment: Order Added by Discern Expert. Performed By: #### 2 327862, 91043542, 2064245, 9320730, 1794710, 57456496, 46150789 ####[facility] [address] [place] [address] Eosinophils/Leukocyte s Auto (Bld) [Pure # fraction] 0.1 E9/L Normal 0.0-0.5 [facility] Comment on above: Order Comment: Order Added by Discern Expert. Performed By: #### 2 329420, 79255191, 6848783, 3956301, 1436499, 65804124, 63511871 ####[address] [place] [address] Lymphocytes/100 WBC (Bld) 55.8 % High 14.0-50.0 [facility] Comment on above: Order Comment: Order Added by Discern Expert. Performed By: #### 2 236291, 33096169, 8936358, 5517564, 6227705, 87232514, 83393246 ####[address] [place] [address] Lymphocytes/Leukocyte s Auto (Bld) [Pure # fraction] 4.5 E9/L High 1.0-4.0 [facility] Comment on above: Order Comment: Order Added by Discern Expert. Performed By: #### 2 741669, 60972429, 5239706, 3847321, 1248323, 33849685, 56504649 ####[address] [place] [address] Monocytes/100 WBC (Bld) 3.8 % Low 4.0-14.0 [facility] Comment on above: Order Comment: Order Added by Discern Expert. Performed By: #### 2 151461, 48188955, 5776818, 4100323, 5512784, 23316635, 97132797 ####[address] [place] [address] Monocytes/Leukocytes Auto (Bld) [Pure # fraction] 0.3 E9/L Normal 0.2-1.0 [facility] Comment on above: Order Comment: Order Added by Discern Expert. Performed By: #### 2 221750, 30787062, 7398074, 2633913, 3812887, 81242345, 01438526 ####[facility] [address] [place] [address] Neutrophils/100 WBC (Bld) 38.4 % Normal 36.0-75.0 [facility] Comment on above: Order Comment: Order Added by Discern Expert. Performed By: #### 2 676586, 98533669, 5673805, 6894522, 4290488, 37736718, 69947233 ####[facility] [address] [place] [address] Neutrophils/Leukocyte s Auto (Bld) [Pure # fraction] 3.1 E9/L Normal 2.0-7.5 [facility] Comment on above: Order Comment: Order Added by Discern Expert. Performed By: #### 2 886191, 04913932, 6850495, 8321655, 8338116, 73542389, 18361687 ####[facility] [address] [place] [address] BMPon 01-02-2023 Creatinine [Mass/Vol] 0.5 mg/dL Normal 0.5-1.3 [facility] Comment on above: Performed By: #### 2 075939, 68116325, 5526844, 5539412, 4097820, 80893166, 13869370 ####[facility] [address] [place] [address] Urea nitrogen [Mass/Vol] 8 mg/dL Normal 5-21 [facility] Comment on above: Performed By: #### 2 167021, 23325600, 2818979, 3599345, 2545758, 38071059, 92369744 ####[facility] [address] [place] [address] Urea nitrogen/Creatinine [Mass ratio] 16 No Units Normal 10-20 [facility] Comment on above: Performed By: #### 2 995277, 34079289, 8210955, 0887012, 7443136, 22295692, 13884009 ####[facility] [address] [place] [address] Anion gap [Moles/Vol] 11 mmol/L Normal 6-16 [facility] Comment on above: Performed By: #### 2 952509, 97516685, 1276396, 9309639, 2663012, 15903727, 62022043 ####[facility] [address] [place] [address] Calcium [Mass/Vol] 8.3 mg/dL Low 8.9-11.1 [facility] Comment on above: Performed By: #### 2 716266, 46672942, 3350846, 5107690, 5745285, 39396142, 80935127 ####[facility] [address] [place] [address] Chloride [Moles/Vol] 109 mmol/L Normal 101-111 [facility] Comment on above: Performed By: #### 2 960230, 89558812, 5207960, 5483007, 1204260, 96410746, 49622410 ####[facility] [address] [place] [address] CO2 [Moles/Vol] 25 mmol/L Normal 21-31 [facility] Comment on above: Performed By: #### 2 442615, 18607459, 3279147, 7911212, 5562338, 03081604, 41218441 ####[facility] [address] [place] [address] Glucose [Mass/Vol] 84 mg/dL Normal 55-199 [facility] Comment on above: Result Comment: If t his glucose result represents a fasting glucose, interpretation should refer to the following reference range: 55-99 mg/dL Performed By: #### 2 832357, 83433301, 9528297, 3664344, 2768924, 22772463, 56419414 ####[facility] [address] [place] [address] Potassium [Moles/Vol] 3.8 mmol/L Normal 3.5-5.3 [facility] Comment on above: Performed By: #### 2 967847, 05178813, 1918376, 7333833, 1940755, 44399844, 59224457 ####[facility] [address] [place] [address] Sodium [Moles/Vol] 141 mmol/L Normal 135-145 [facility] Comment on above: Performed By: #### 2 966182, 39009161, 4397139, 8197959, 3611769, 16450141, 76688846 ####[facility] [address] [place] [address] CBC w/ Auto Diffon Erythrocyte distribution width (RBC) [Ratio] 13.3 % Normal 10.9-14.2 [facility] Comment on above: Performed By: #### 2 094506, 16414508, 0967606, 1281063, 7364182, 03291493, 80104920 ####[facility] [address] [place] [address] Hematocrit (Bld) [Volume fraction] 43.4 % Normal 34.0-46.0 [facility] Comment on above: Performed By: #### 2 325949, 96318868, 3481072, 7496620, 3842478, 85494015, 93978386 ####[facility] [address] [place] [address] Hemoglobin (Bld) [Mass/Vol] 14.5 g/dL Normal 12.0-16.0 [facility] Comment on above: Performed By: #### 2 100632, 66400879, 0666629, 4449273, 0999676, 43335431, 51637689 ####[facility] [address] [place] [address] MCH (RBC) [Entitic mass] 33.3 pg Normal 27.0-34.0 [facility] Comment on above: Performed By: #### 2 485301, 30397120, 4723379, 9419781, 3895899, 97089425, 50051029 ####[facility] [address] [place] [address] MCHC (RBC) [Mass/Vol] 33.4 g/dL Normal 31.4-36.0 [facility] Comment on above: Performed By: #### 2 994804, 08406950, 8584382, 8633866, 5930763, 05467345, 17769643 ####[facility] [address] [place] [address] MCV (RBC) [Entitic vol] 99.6 fL Normal 80.0-100.0 [facility] Comment on above: Performed By: #### 2 901192, 06068919, 1000353, 7866404, 7487909, 69205772, 50163214 ####[facility] [address] [place] [address] Platelet mean volume (Bld) [Entitic vol] 8.4 fL Normal 6.4-10.8 [facility] Comment on above: Performed By: #### 2 116188, 89884118, 0153974, 8232217, 9644115, 29353249, 78667219 ####[address] [place] [address] Platelets (Bld) [#/Vol] 204.0 E9/L Normal 150.0-500.0 [facility] Comment on above: Performed By: #### 2 652117, 05801526, 7554755, 3782264, 4334437, 66539199, 21817083 ####[facility] [address] [place] [address] RBC (Bld) [#/Vol] 4.4 E12/L Normal 4.3-5.9 [facility] Comment on above: Performed By: #### 2 837199, 48092291, 5156931, 2835617, 8715136, 76385858, 09219370 ####[facility] [address] [place] [address] WBC corrected for nucl RBC Auto (Bld) [#/Vol] 8.0 E9/L Normal 4.0-11.0 [facility] Comment on above: Performed By: #### 2 806706, 95069534, 0750404, 8250945, 5200975, 25353898, 80556083 ####[facility] [address] [place] [address] CHEMISTRYOrdered By: SYSTEM SYSTEM on 01-02-2023 Anion gap [Moles/Vol] 11 mmol/L Normal 6 - 16 mEq/L [facility] Calcium [Mass/Vol] 8.3 mg/dL Low 8.9 - 11. 1 mg/dL [facility] Chloride [Moles/Vol] 109 mmol/L Normal 101 - 1 11 mmol/L [facility] CO2 [Moles/Vol] 25 mmol/L Normal 21 - 31 mmol/L [facility] Creatinine [Mass/Vol] 0.5 mg/dL Normal 0.5 - 1.3 mg/dL [facility] Ethanol [Mass/Vol] 359 mg/dL Invalid Interpretation Code <=7mg/dL [facility] Comment on above: Result Comment: Crit ical Result verified by repeat analysis\Critical Result S_ETOH:359.0 Called to [facility] AT ER by SIXTO COLEMAN And Read Back For Confirmation at: 01/02/2023 01:49:19 GFR/1.73 sq M.predicted among non-blacks MDRD (S/P/Bld) [Vol rate/Area] 129 mL/min/1.73 m2 Normal >=59mL/min/1 .73 m2 [facility] Chem S Comment on above: Interpretive Data: C hronic kidney disease could be indicated at eGFR's of less than 60 mL/min/1.73m2. Kidney failure is indicated at less than 15 mL/min/1.73m2. Glucose [Mass/Vol] 84 mg/dL Normal 55 - 199 mg/dL [facility] Comment on above: Interpretive Data: I f this glucose result represents a fasting glucose, interpretation should refer to the following reference range: 55-99 mg/dL Magnesium [Mass/Vol] 1.9 mg/dL Normal 1.3 - 2 .4 mg/dL [facility] Potassium [Moles/Vol] 3.8 mmol/L Normal 3.5 - 5.3 mmol/L [facility] Sodium [Moles/Vol] 141 mmol/L Normal 135 - 145 mmol/L [facility] Troponin I.cardiac [Mass/Vol] 4.90 pg/mL Low 10.10 - 27.10 pg/mL [facility] Comment on above: Interpretive Data: T he 95% CI (Confidence Interval) PPV (Positive Predictive Value) for myocardial infarction in females is 38 pg/mL, in males 51 pg/mL. The results should be used in conjunction with clinical conditions of myocardial infarction. (Access High Sensitivity Troponin I Instructions For Use, [employer], September 2017) Urea nitrogen [Mass/Vol] 8 mg/dL Normal 5 - 21 mg/dL [facility] Urea nitrogen/Creatinine [Mass ratio] 16 mg/mg Normal 10 - 20 [facility] Remisol COAGULATIONOrdered By: Sixto Coleman on 01-02-2023 aPTT Coag (PPP) [Time] 34.5 s Normal 25.1 - 36.5 second(s) [facility] Auto Coag Comment on above: Interpretive Data: [...] the same coagulation reagent and instrumentation as [facility]. Currently there are no coagulation studies available worldwide for children to 14 days, and no normal ranges. Heparin therapeutic range (represented by Anti-Factor Xa activity of 0.2 - 0.4 U/mL) corresponds to PTT of 56.6 - 109.0 sec. INR Coag (PPP) [Relative time] 1.1 {INR} Invalid Interpretation Code [facility] Auto Coag Comment on above: Interpretive Data: I NR results are specifically intended to assess patients stabilized on long-term Anticoagulation therapy suggested INR s Less Intensive Anticoagulation 2.0 3.0 Conventional Range 3.0 4.5 PT Coag (PPP) [Time] 12.2 s Normal 9.4 - 1 2.5 second(s) [facility] Auto Coag Comment on above: Interpretive Data: [...] the same coagulation reagent and instrumentation as [facility]. Currently there are no coagulation studies available worldwide for children to 14 days, and no normal ranges. Consent for Treatmenton 12-13 Consent for Treatment [id number]#[id number] FF Normal [facility] Discharge Instructionson Discharge Instructions [id number] FF Normal [facility] ED Clinical Summaryon 2022 ED [facility]-20 23 ED Note-Physician Normal [facility] Comment on above: Result Comment: Elec tronically Signed By: Darren Guzman DO\.br\Date and Time Signed: 01/02/23 02:02 EST ED Patient Education Noteon 01-02-2023 ED Patient Education Note Normal [facility] ED Patient Summaryon 023 ED Patient Summary Normal [facility] Ethanolon 01-02-2023 Ethanol [Mass/Vol] 359 mg/dL Abnormal <=7 [facility] Comment on above: Result Comment: Crit ical Result verified by repeat analysis\Critical Result S_ETOH:359.0 Called to [facility] AT by SIXTO COLEMAN And Read Back For Confirmation at: 01/02/2023 01:49:19 Performed By: #### 2 344360 ####[facility] [address] [place] [address] HEMATOLOGYOrdered By: SYSTEM SYSTEM on 01-02-2023 Basophils/100 [...] 01-02-2023 Magnesium [Mass/Vol] 1.9 mg/dL Normal 1.3-2.4 [facility] Comment on above: Performed By: #### 2 101441, 03234849, 2524385, 1053089, 4027042, 45050616, 20479550 ####[facility] [address] [place] [address] PT & PTTon 01-02-2023 aPTT Coag (PPP) [Time] 34.5 second(s) Normal 25.1-36.5 [facility] Comment on above: Result Comment: Para meter [...] the same coagulation reagent and instrumentation as [facility]. Currently there are no coagulation studies available worldwide for children to 14 days, and no normal ranges. Heparin therapeutic range (represented by Anti-Factor Xa activity of 0.2 - 0.4 U/mL) corresponds to PTT of 56.6 - 109.0 sec. Performed By: #### 2 557994, 61002239, 0775247, 3265665, 2567308, 84915749, 38582829 ####[facility] [address] [place] [address] INR Coag (PPP) [Relative time] 1.1 {INR} Invalid Interpretation Code [facility] Comment on above: Result Comment: INR results are specifically intended to assess patients stabilized on long-term Anticoagulation therapy suggested INR?s ?Less Intensive Anticoagulation? 2.0 ? 3.0Conventional Range 3.0 ? 4.5 Performed By: #### 2 922850, 44088135, 9416884, 1974945, 5937643, 33185317, 04918450 ####[facility] [address] [place] [address] PT Coag (PPP) [Time] 12.2 second(s) Normal 9.4-12.5 [facility] Comment on above: Result Comment: 15 d ays - 4 weeks 1 - 5 months 6 -11 months 1- 5 years 6-10 years 11 -17 years Mean: 11.2 (9.5-12.6) Mean: 11.0 (9.7-12.8) Mean: 11.0 (9.8-13.0) Mean: 11.3 (9.9-13.4) Mean: 11.7 (10.0-14.6) Mean: 11.8 (10.0 - 14.1) Pediatric Reference ranges were obtained from a study by silvia Carroll. prepared from 1437 samples obtained at 7 different centers using the same coagulation reagent and instrumentation as [facility]. Currently there are no coagulation studies available worldwide for children to 14 days, and no normal ranges. Performed By: #### 2 347008, 82523489, 6840756, 4784106, 4139287, 42978667, 65006669 ####[facility] [address] [place] [address] Pre-Arrival Noteon 3 Pre-Arrival Note Normal [facility] Pre-Arrival Note Normal [facility] Troponin 0 Hr.on 01-02-2023 Troponin I.cardiac [Mass/Vol] 4.90 pg/mL Low 10.10-27.10 [facility] Comment on above: Result Comment: The 95% CI (Confidence Interval) PPV (Positive Predictive Value) for myocardial infarction in females is 38 pg/mL, in males 51 pg/mL. The results should be used in conjunction with clinical conditions of myocardial infarction.(Access High Sensitivity Troponin I Instructions For Use, [employer], September 2017) Performed By: #### 2 891387, 84715534, 8224383, 0456707, 6876405, 87585565, 15561904 ####[facility] [address] [place] [address] XR Chest Single Viewon 01-02 XR Chest Single View Normal [facility] eGFRon 01-02-2023 GFR/1.73 sq M.predicted among non-blacks MDRD (S/P/Bld) [Vol rate/Area] 129 mL/min/1.73 m2 Normal >=59 [facility] Comment on above: Order Comment: Order added by Discern Expert. Result Comment: Project Financial Analyst justin kidney disease could be indicated at eGFR's of less than 60 mL/min/1.73m2. Kidney failure is indicated at less than 15 mL/min/1.73m2. Performed By: #### 2 316624, 09512318, 6606910, 3530704, 5806775, 35343784, 85084612 ####[facility] [address] [place] [address] SARS coronavirus 2 RNAon SARS-CoV-2 (COVID-19) RNA MOISES+probe Ql (Resp) Not detected Normal Not Detected [facility] Comment on above: Order Comment: This assay [...] and has been validated for use at [facility]. Negative results do not preclude COVID-19 infections and should not be used as the sole basis for diagnosis, treatment, or other management decisions. Performed By: #### 2 4323-8 #### CARLTON Barragan ([id number]) [facility] ([facility]) [address] [place] [address] SARS-CoV-2 (COVID-19) RNA NA A+probe Ql (Resp)on 12-16-2022 Interpretation and review of laboratory results Normal [facility] This assay has recei laquita FDA Emergency [...] and has been validated for use at [facility]. Negative results do not preclude COVID-19 infections and should not be used as the sole basis for diagnosis, treatment, or other management decisions. [facility] Sars-CoV-2 PCR, Screen Asymp tomaticon 12-16-2022 SARS-CoV-2 (COVID-19) RNA MOISES+probe Ql (Resp) Not detected Not Detected [facility] ACUTE TOXICOLOGY PANEL, BLOO Don 12-15-2022 Acetaminophen [Mass/Vol] ug/mL Normal 10.0-30.0 [facility] Comment on above: Performed By: #### D RUBL #### CARLTON Barragan ([id number]) [facility] ([facility] [place] [facility]) [address] [place] [address] Ethanol [Mass/Vol] mg/dL Normal <=10 [facility] Comment on above: Performed By: #### Sadiq RUBL #### CARLTON Barragan ([id number]) [facility] ([facility] [place] [facility]) [address] [place] [address] Salicylates [Mass/Vol] mg/dL Normal 4-20 [facility] Comment on above: Performed By: #### Sadiq RUBL #### CARLTON Barragan ([id number]) [facility] ([facility]) [address] [place] [address]645 CBC W Auto Differential pane l (Bld)on 12-15-2022 Basophils (Bld) [#/Vol] 0.02 x10*3/uL Normal 0.00-0.10 [facility] Comment on above: Result Comment: Auto mated WBC differential has been confirmed by manual smear. Performed By: #### 2 4323-8 #### CARLTON Barragan ([id number]) [facility] ([facility] [place]) [address] [place] [address] 19181 Basophils/100 WBC (Bld) 0.3 % Normal 0.0-2.0 [facility] Comment on above: Performed By: #### 2 4323-8 #### CARLTON Barragan ([id number]) [facility] ([facility]) [address] [place] [address] 13498 Eosinophils (Bld) [#/Vol] 0.08 x10*3/uL Normal 0.00-0.70 [facility] Comment on above: Performed By: #### 2 4323-8 #### CARLTON Barragan ([id number]) [facility] ([facility]) [address] [place] [address] 80809 Eosinophils/100 WBC (Bld) 1.4 % Normal 0.0-6.0 [facility] Comment on above: Performed By: #### 2 4323-8 #### CARLTON Barragan ([id number]) [facility] ([facility] [place]) [address] [place] [address] Erythrocyte distribution width (RBC) [Ratio] 12.4 % Normal 11.5-14.5 [facility] Comment on above: Performed By: #### 2 4323-8 #### CARLTON Barragan ([id number]) [facility] ([facility] [place]) [address] [place] [address] Hematocrit (Bld) [Volume fraction] 39.4 % Normal 36.0-46.0 [facility] Comment on above: Performed By: #### 2 4323-8 #### CARLTON Barragan ([id number]) [facility] ([facility] [place]) [address] [place] [address] Hemoglobin (Bld) [Mass/Vol] 13.8 g/dL Normal 12.0-16.0 [facility] Comment on above: Performed By: #### 2 4323-8 #### CARLTON Barragan ([id number]) [facility] ([facility] [place]) [address] [place] [address] Immature granulocytes (Bld) [#/Vol] 0.02 x10*3/uL Normal 0.00-0.70 [facility] Comment on above: Performed By: #### 2 4323-8 #### CARLTON Barragan ([id number]) [facility] ([facility] [place]) [address] [place] [address] Immature granulocytes/100 WBC (Bld) 0.3 % Normal 0.0-0.9 [facility] Comment on above: Result Comment: Jennifer ture Granulocyte Count (IG) includes promyelocytes, myelocytes and metamyelocytes but does not include bands. Percent differential counts (%) should be interpreted in the context of the absolute cell counts (cells/UL). Performed By: #### 2 4323-8 #### CARLTON Barragan ([id number]) [facility] ([facility] [place]) [address] [place] [address] Lymphocytes (Bld) [#/Vol] 1.92 x10*3/uL Normal 1.20-4.80 [facility] Comment on above: Performed By: #### 2 432-8 #### CARLTON Barragan ([id number]) [facility] ([facility] [place]) [address] [place] [address] 73743 Lymphocytes/100 WBC (Bld) 32.6 % Normal 13.0-44.0 [facility] Comment on above: Performed By: #### 2 4322-8 #### CARLTON Barragan ([id number]) [facility] ([facility] [place]) [address] [place] [address] MCH (RBC) [Entitic mass] 34.4 pg High 26.0-34.0 [facility] Comment on above: Performed By: #### 2 4322-8 #### CARLTON Barragan ([id number]) [facility] ([facility]) [address] [place] [address] 14548 MCHC (RBC) [Mass/Vol] 35.0 g/dL Normal 32.0-36.0 [facility] Comment on above: Performed By: #### 2 4322-8 #### CARLTON Barragan ([id number]) [facility] ([facility]) [address] [place] [address] 03493 MCV (RBC) [Entitic vol] 98 fL Normal 80-100 [facility] Comment on above: Performed By: #### 2 4322-8 #### CARLTON Barragan ([id number]) [facility] ([facility] [place]) [address] [place] [address] 11552 Monocytes (Bld) [#/Vol] 0.22 x10*3/uL Normal 0.10-1.00 [facility] Comment on above: Performed By: #### 2 4322-8 #### CARLTON Barragan ([id number]) [facility] ([facility]) [address] [place] [address] 24383 Monocytes/100 WBC (Bld) 3.7 % Normal 2.0-10.0 [facility] Comment on above: Performed By: #### 2 4322-8 #### CARLTON Barragan ([id number]) [facility] ([facility]) [address] [place] [address] 98079 Neutrophils (Bld) [#/Vol] 3.63 x10*3/uL Normal 1.20-7.70 [facility] Comment on above: Result Comment: Perc ent differential counts (%) should be interpreted in the context of the absolute cell counts (cells/uL). Performed By: #### 2 4323-8 #### CARLTON Barragan ([id number]) [facility] ([facility]) [address] [place] [address] 48431 Neutrophils/100 WBC (Bld) 61.7 % Normal 40.0-80.0 [facility] Comment on above: Performed By: #### 2 4323-8 #### CARLTON Barragan ([id number]) [facility] ([facility]) [address] [place] [address] 93356 Nucleated RBC/100 WBC (Bld) [Ratio] 0.0 /100 WBCs Normal 0.0-0.0 [facility] Comment on above: Performed By: #### 2 4323-8 #### CARLTON Barragan ([id number]) [facility] ([facility]) [address] [place] [address] 05523 Platelets (Bld) [#/Vol] 89 x10*3/uL Low 150-450 [facility] Comment on above: Result Comment: Plat elet count verified by smear review. Performed By: #### 2 4323-8 #### CARLTON Barragan ([id number]) [facility] ([facility] [place]) [address] [place] [address] 59040 RBC (Bld) [#/Vol] 4.01 x10*6/uL Normal 4.00-5.20 [facility] Comment on above: Performed By: #### 2 4323-8 #### CARLTON Barragan ([id number]) [facility] ([facility] [place]) [address] [place] [address] 63938 WBC (Bld) [#/Vol] 5.9 x10*3/uL Normal 4.4-11.3 [facility] Comment on above: Performed By: #### 2 4323-8 #### CARLTON Barragan ([id number]) [facility] ([facility]) [address] [place] [address] 99541 Comprehensive metabolic 2000 panelon 12-15-2022 Albumin BCP dye [Mass/Vol] 4.3 g/dL Normal 3.4-5.0 [facility] Comment on above: Performed By: #### 2 4323-8 #### CARLTON Barragan ([id number]) [facility] ([facility]) [address] [place] [address] 16430 ALP [Catalytic activity/Vol] 131 U/L High 33-110 [facility] Comment on above: Performed By: #### 2 432-8 #### CARLTON Barragan ([id number]) [facility] ([facility]) [address] [place] [address] 80735 ALT With P-5'-P [Catalytic activity/Vol] 113 U/L High 7-45 [facility] Comment on above: Result Comment: Tran ents treated with Sulfasalazine may generate falsely decreased results for ALT. Performed By: #### 2 432-8 #### CARLTON Barragan ([id number]) [facility] ([facility] [place]) [address] [place] [address] 83519 Anion gap [Moles/Vol] 11 mmol/L Normal 10-20 [facility] Comment on above: Performed By: #### 2 4323-8 #### CARLTON Barragan ([id number]) [facility] ([facility] [place]) [address] [place] [address] 00870 AST With P-5'-P [Catalytic activity/Vol] 180 U/L High 9-39 [facility] Comment on above: Performed By: #### 2 4323-8 #### CARLTON Barragan ([id number]) [facility] ([facility] [place]) [address] [place] [address] 16965 Bilirubin [Mass/Vol] 1.0 mg/dL Normal 0.0-1.2 [facility] Comment on above: Performed By: #### 2 4323-8 #### CARLTNO Barragan ([id number]) [facility] ([facility] [place]) [address] [place] [address] 51028 Calcium [Mass/Vol] 9.9 mg/dL Normal 8.6-10.3 [facility] Comment on above: Performed By: #### 2 4323-8 #### CARLTON Barragan ([id number]) [facility] ([facility] [place]) [address] [place] [address] 61406 Chloride [Moles/Vol] 99 mmol/L Normal 98-107 [facility] Comment on above: Performed By: #### 2 4323-8 #### CARLTON Barragan ([id number]) [facility] ([facility] [place]) [address] [place] [address] 75918 CO2 [Moles/Vol] 27 mmol/L Normal 21-32 [facility] Comment on above: Performed By: #### 2 4323-8 #### CARLTON Barragan ([id number]) [facility] ([facility] [place]) [address] [place] [address] 01662 Creatinine [Mass/Vol] 0.68 mg/dL Normal 0.50-1.05 [facility] Comment on above: Performed By: #### 2 4323-8 #### CARLTON Barragan ([id number]) [facility] ([facility] [place]) [address] [place] [address] 40889 GFR/1.73 sq M.predicted MDRD (S/P/Bld) [Vol rate/Area] mL/min/{1.73_m2} Normal >60 [facility] Comment on above: Result Comment: Calc ulations of estimated GFR are performed using the 2020 CKD-EPI Study Refit equation without the race variable for the IDMS-Traceable creatinine methods. https://jasn.asnjournals.org/content/early/ASN.529365 2544 Performed By: #### 2 4323-8 #### CARLTON Barragan ([id number]) [facility] ([facility] [place]) [address] [place] [address] 91601 Glucose [Mass/Vol] 81 mg/dL Normal 74-99 [facility] Comment on above: Performed By: #### 2 4323-8 #### CARLTON Barragan ([id number]) [facility] ([facility] [place]) [address] [place] [address] 01634 Potassium [Moles/Vol] 4.2 mmol/L Normal 3.5-5.3 [facility] Comment on above: Performed By: #### 2 4323-8 #### CARLTON Barragan ([id number]) [facility] ([facility] [place]) [address] [place] [address] 60081 Protein [Mass/Vol] 8.3 g/dL High 6.4-8.2 [facility] Comment on above: Performed By: #### 2 4323-8 #### CARLTON Barragan ([id number]) [facility] ([facility] [place]) [address] [place] [address] 55172 Sodium [Moles/Vol] 133 mmol/L Low 136-145 [facility] Comment on above: Performed By: #### 2 4323-8 #### CARLTON Barragan ([id number]) [facility] ([facility] [place]) [address] [place] [address] 54848 Urea nitrogen [Mass/Vol] 10 mg/dL Normal 6-23 [facility] Comment on above: Performed By: #### 2 4323-8 #### CARLTON Barragan ([id number]) [facility] ([facility] [place]) [address] [place] [address] 94834 DRUG SCREEN,URINEon 12-16-19 23 Amphetamines Screen Ql (U) Negative Normal Presumptive Negative [facility] Comment on above: Order Comment: Drug screen results are presumptive and should not be used to assesscompliance with prescribed medication. Contact the performing [facility] laboratoryto add-on definitive confirmatory testing [...] By: #### 2 4323-8 #### CARLTON Barragan ([id number]) [facility] ([facility] [place]) [address] [place] [address] Barbiturates Screen Ql (U) Positive Abnormal Presumptive Negative [facility] Comment on above: Order Comment: Drug screen results are presumptive and should not be used to assesscompliance with prescribed medication. Contact the performing [facility] laboratoryto add-on definitive confirmatory testing [...] By: #### 2 4323-8 #### CARLTON Barragan ([id number]) [facility] ([facility] [place]) [address] [place] [address] 50982 Benzodiazepines Ql (U) Positive Abnormal Presumptive Negative [facility] Comment on above: Order Comment: Drug screen results are presumptive and should not be used to assesscompliance with prescribed medication. Contact the performing [facility] laboratoryto add-on definitive confirmatory testing [...] By: #### 2 4323-8 #### CARLTON Barragan ([id number]) [facility] ([facility] [place]) [address] [place], [place] [address] Benzoylecgonine Screen Ql (U) Negative Normal Presumptive Negative [facility] Comment on above: Order Comment: Drug screen results are presumptive and should not be used to assesscompliance with prescribed medication. Contact the performing [facility] laboratoryto add-on definitive confirmatory testing [...] By: #### 2 4323-8 #### CARLTON Barragan ([id number]) [facility] ([facility] [place]) [address] [place] [address] 02004 Cannabinoids Screen Ql (U) Negative Normal Presumptive Negative [facility] Comment on above: Order Comment: Drug screen results are presumptive and should not be used to assesscompliance with prescribed medication. Contact the performing [facility] laboratoryto add-on definitive confirmatory testing [...] By: #### 2 4323-8 #### CARLTON Barragan ([id number]) [facility] ([facility] [place]) [address] [place] [address] fentaNYL+Norfentanyl Screen Ql (U) Negative Normal Presumptive Negative [facility] Comment on above: Order Comment: Drug screen results are presumptive and should not be used to assesscompliance with prescribed medication. Contact the performing [facility] laboratoryto add-on definitive confirmatory testing [...] By: #### 2 4323-8 #### CARLTON Barragan ([id number]) [facility] ([facility] [place]) [address] [place] [address] 71995 Opiates Screen Ql (U) Negative Normal Presum ptive Negative [facility] Comment on above: Order Comment: Drug screen results are presumptive and should not be used to assesscompliance with prescribed medication. Contact the performing [facility] laboratoryto add-on definitive confirmatory testing [...] By: #### 2 4323-8 #### CARLTON Barragan ([id number]) [facility] ([facility] [place]) [address] [place] [address] 58561 oxyCODONE+oxyMORphone Screen Ql (U) Negative Normal Presumptive Negative [facility] Comment on above: Order Comment: Drug screen results are presumptive and should not be used to assesscompliance with prescribed medication. Contact the performing [facility] laboratoryto add-on definitive confirmatory testing [...] By: #### 2 4323-8 #### CARLTON Barragan ([id number]) [facility] ([facility] [place]) [address] [place] [address] 17644 Phencyclidine Ql (U) Negative Normal Presump tive Negative [facility] Comment on above: Order Comment: Drug screen results are presumptive and should not be used to assesscompliance with prescribed medication. Contact the performing [facility] laboratoryto add-on definitive confirmatory testing [...] By: #### 2 4323-8 #### CARLTON Barragan ([id number]) [facility] ([facility] [place]) [address] [place] [address] Amphetamines Screen Ql (U) Negative Normal Presumptive Negative [facility] Comment on above: Order Comment: Drug screen results are presumptive and should not be used to assesscompliance with prescribed medication. Contact the performing [facility] laboratoryto add-on definitive confirmatory testing [...] By: #### 2 4323-8 #### CARLTON Barragan ([id number]) [facility] ([facility] [place]) [address] [place] [address] Barbiturates Screen Ql (U) Negative Normal Presumptive Negative [facility] Comment on above: Order Comment: Drug screen results are presumptive and should not be used to assesscompliance with prescribed medication. Contact the performing [facility] laboratoryto add-on definitive confirmatory testing [...] By: #### 2 4323-8 #### CARLTON Barragan ([id number]) [facility] ([facility] [place]) [address] [place] [address] 90364 Benzodiazepines Ql (U) Positive Abnormal Presumptive Negative [facility] Comment on above: Order Comment: Drug screen results are presumptive and should not be used to assesscompliance with prescribed medication. Contact the performing [facility] laboratoryto add-on definitive confirmatory testing [...] By: #### 2 4323-8 #### CARLTON Barragan ([id number]) [facility] ([facility] [place]) [address] [place] [address] 69850 Benzoylecgonine Screen Ql (U) Negative Normal Presumptive Negative [facility] Comment on above: Order Comment: Drug screen results are presumptive and should not be used to assesscompliance with prescribed medication. Contact the performing [facility] laboratoryto add-on definitive confirmatory testing [...] By: #### 2 4323-8 #### CARLTON Barragan ([id number]) [facility] ([facility] [place]) [address] [place] [address] 94580 Cannabinoids Screen Ql (U) Negative Normal Presumptive Negative [facility] Comment on above: Order Comment: Drug screen results are presumptive and should not be used to assesscompliance with prescribed medication. Contact the performing [facility] laboratoryto add-on definitive confirmatory testing [...] By: #### 2 4323-8 #### CARLTON Barragan ([id number]) [facility] ([facility] [place]) [address] [place] [address] 66368 fentaNYL+Norfentanyl Screen Ql (U) Negative Normal Presumptive Negative [facility] Comment on above: Order Comment: Drug screen results are presumptive and should not be used to assesscompliance with prescribed medication. Contact the performing [facility] laboratoryto add-on definitive confirmatory testing [...] By: #### 2 4323-8 #### CARLTON Barragan ([id number]) [facility] ([facility] [place]) [address] [place] [address] 25499 Opiates Screen Ql (U) Negative Normal Presum ptive Negative [facility] Comment on above: Order Comment: Drug screen results are presumptive and should not be used to assesscompliance with prescribed medication. Contact the performing [facility] laboratoryto add-on definitive confirmatory testing [...] By: #### 2 4323-8 #### CARLTON Barragan ([id number]) [facility] ([facility] [place]) [address] [place] [address] 22720 oxyCODONE+oxyMORphone Screen Ql (U) Negative Normal Presumptive Negative [facility] Comment on above: Order Comment: Drug screen results are presumptive and should not be used to assesscompliance with prescribed medication. Contact the performing [facility] laboratoryto add-on definitive confirmatory testing [...] By: #### 2 4323-8 #### CARLTON Barragan ([id number]) [facility] ([facility] [place]) [address] [place] [address] Phencyclidine Ql (U) Negative Normal Presump tive Negative [facility] Comment on above: Order Comment: Drug screen results are presumptive and should not be used to assesscompliance with prescribed medication. Contact the performing [facility] laboratoryto add-on definitive confirmatory testing [...] By: #### 2 4323-8 #### CARLTON Barragan ([id number]) [facility] ([facility] [place]) [address] [place] [address] Drug Screen, Urineon 023 Amphetamines Screen Ql (U) Negative Presumptive Negative [facility] Comment on above: CUTOFF LEVEL: 500 NG /ML Cross-reactivity has been reported with high concentrations of the following drugs: buproprion, chloroquine, chlorpromazine, ephedrine, mephentermine, fenfluramine, phentermine, phenylpropanolamine, pseudoephedrine, and propranolol. Barbiturates Screen Ql (U) Positive Abnormal Presumptive Negative [facility] Comment on above: CUTOFF LEVEL: 200 NG /ML Benzodiazepines Ql (U) Positive Abnormal Presumptive Negative [facility] Comment on above: CUTOFF LEVEL: 200 NG /ML Benzoylecgonine Screen Ql (U) Negative Presumptive Negative [facility] Comment on above: CUTOFF LEVEL: 150 NG /ML Cannabinoids Screen Ql (U) Negative Presumptive Negative [facility] Comment on above: CUTOFF LEVEL: 50 NG/ ML fentaNYL+Norfentanyl Screen Ql (U) Negative Presumptive Negative [facility] Comment on above: CUTOFF LEVEL: 5 NG/M L Interpretation and review of laboratory results Abnormal [facility] Opiates Screen Ql (U) Negative Presum ptive Negative [facility] Comment on above: CUTOFF LEVEL: 300 NG /ML The opiate screen does not detect fentanyl, meperidine, or tramadol. Oxycodone is not consistently detected (refer to Oxycodone Screen, Urine result). oxyCODONE+oxyMORphone Screen Ql (U) Negative Presumptive Negative [facility] Comment on above: CUTOFF LEVEL: 100 NG /ML This test will accurately detect both oxycodone and oxymorphone. Phencyclidine Ql (U) Negative Presump tive Negative [facility] Comment on above: CUTOFF LEVEL: 25 NG/ ML Cross-reactivity has been reported with dextromethorphan. Drug screen results are presumptive and should not be used to assess compliance with prescribed medication. Contact the performing [facility] laboratory to add-on definitive confirmatory [...] be directed to the laboratory medical directors. [facility] HCG ( test) IA.kristinai d Ql (U)on 12-15-2022 HCG ( test) Ql (U) Negative Normal NEGATIVE [facility] Comment on above: Performed By: #### 8 0384-1 #### CARLTON Barragan ([id number]) [facility] ([facility]) [address] [place] [address] RBC shape Nom (Bld)on 2022 RBC morphology finding Nom (Bld) No significant RBC morphology present Normal [facility] Comment on above: Performed By: #### 2 4323-8 #### CARLTON Barragan ([id number]) [facility] ([facility] [place]) [address] [place] [address] 87689 Urinalysis complete panel (U )on 12-15-2022 Appearance (U) Clear Normal Clear [facility] Comment on above: Performed By: #### 2 4356-8 #### CARLTON Barragan ([id number]) [facility] ([facility] [place]) [address] [place] [address] 43152 Bilirubin (U) [Mass/Vol] Negative Normal NEGATIVE [facility] Comment on above: Performed By: #### 2 4356-8 #### CARLTON Barragan ([id number]) [facility] ([facility] [place]) [address] [place] [address] 69460 Color (U) Yellow Normal Straw, Yellow [facility] Comment on above: Performed By: #### 2 4356-8 #### CARLTON Barragan ([id number]) [facility] ([facility] [place]) [address] [place] [address] 04104 Glucose Auto test strip (U) [Mass/Vol] Negative Normal NEGATIVE [facility] Comment on above: Performed By: #### 2 4356-8 #### CARLTON Barragan ([id number]) [facility] ([facility] [place]) [address] [place] [address] 09925 Ketones (U) [Mass/Vol] Negative Normal NEGATIVE [facility] Comment on above: Performed By: #### 2 4356-8 #### CARLTON Barragan ([id number]) [facility] ([facility] [place]) [address] [place] [address] 33545 Leukocyte esterase Auto test strip Ql (U) Negative Normal NEGATIVE [facility] Comment on above: Performed By: #### 2 4356-8 #### CARLTON Barragan ([id number]) [facility] ([facility] [place]) [address] [place] [address] 06328 Nitrite Auto test strip Ql (U) Negative Normal NEGATIVE [facility] Comment on above: Performed By: #### 2 4356-8 #### CARLTON Barragan ([id number]) [facility] ([facility] [place]) [address] [place] [address] pH (U) 8.0 [pH] Normal 5.0, 5.5, 6.0, 6.5, 7.0, 7.5, 8.0 [facility] Comment on above: Performed By: #### 2 4356-8 #### CARLTON Barragan ([id number]) [facility] ([facility] [place]) [address] [place] [address] Protein (U) [Mass/Vol] Negative Normal NEGATIVE [facility] Comment on above: Performed By: #### 2 4356-8 #### CARLTON Barragan ([id number]) [facility] ([facility] [place]) [address] [place] [address] RBC (U) [#/Vol] Negative Normal NEGATIVE [facility] Comment on above: Performed By: #### 2 4356-8 #### CARLTON Barragan ([id number]) [facility] ([facility] [place]) [address] [place] [address] Specific gravity (U) [Rel density] 1.006 Normal 1.005-1.035 [facility] Comment on above: Performed By: #### 2 4356-8 #### CARLTON Barragan ([id number]) [facility] ([facility] [place]) [address] [place] [address] Urobilinogen (U) [Mass/Vol] 4.0 mg/dL Normal <2.0 [facility] Comment on above: Result Comment: Some pigments and medications may cause a false positive urobilinogen. Performed By: #### 2 4356-8 #### CARLTON Barragan ([id number]) [facility] ([facility] [place]) [address] [place] [address] Acute Toxicology Panel, [place] wise 12-14-2022 Acetaminophen [Mass/Vol] ug/mL 10.0 - 30.0 ug/mL [facility] Ethanol [Mass/Vol] mg/dL NINF - 10 mg/dL [facility] Interpretation and review of laboratory results Normal [facility] Salicylates [Mass/Vol] mg/dL 4 - 20 mg/dL [facility] Acute hepatitis 2000 panel ( S)on 12-14-2022 HAV IgM Ql (S) Non-Reactive Normal Nonreactive [facility] Comment on above: Result Comment: Biot in interference may cause falsely decreased results. Patients taking a Biotin dose of up to 5 mg/day should refrain from taking Biotin for 24 hours before sample collection. Providers may contact their local laboratory for further information. Performed By: #### 2 4363-4 #### MERLY Barragan ([id number]) [facility] ([facility]) [address] [place] [address] HBV core IgM Ql (S) Non-Reactive Normal Nonreactive [facility] Comment on above: Result Comment: Resu lts from patients taking biotin supplements or receiving high-dose biotin therapy should be interpreted with caution due to possible interference with this test. Providers may contact their local laboratory for further information. Performed By: #### 2 4363-4 #### MERLY Barragan ([id number]) [facility] ([facility]) [address] [place], [place] [address] HBV surface Ag IA Ql Non-Reactive Normal Nonreactive [facility] Comment on above: Result Comment: Biot in interference may cause falsely decreased results. Patients taking a Biotin dose of up to 5 mg/day should refrain from taking Biotin for 24 hours before sample collection. Providers may contact their local laboratory for further information. Performed By: #### 2 4363-4 #### MERLY Barragan ([id number]) [facility] ([facility]) [address] [place], [place] [address] HCV Ab Ql (S) Reactive Abnormal Nonreactive [facility] Comment on above: Result Comment: HCV antibody [...] By: #### 2 4363-4 #### MERLY Barragan ([id number]) [facility] ([facility]) [address] [place] [address] CBC W Auto Differential pane l (Bld)on 12-14-2022 Basophils (Bld) [#/Vol] 0.02 10*3/uL [facility] Comment on above: Automated WBC differ ential has been confirmed by manual smear. Basophils/100 WBC (Bld) 0.3 % 0.0 - 2.0 % [facility] Eosinophils (Bld) [#/Vol] 0.08 10*3/uL [facility] Eosinophils/100 WBC (Bld) 1.4 % 0.0 - 6.0 % [facility] Erythrocyte distribution width (RBC) [Ratio] 12.4 % 11.5 - 14.5 % [facility] Hematocrit (Bld) [Volume fraction] 39.4 % 36.0 - 46.0 % [facility] Hemoglobin (Bld) [Mass/Vol] 13.8 g/dL 12.0 - 16.0 g/dL [facility] Immature granulocytes (Bld) [#/Vol] 0.02 10*3/uL [facility] Immature granulocytes/100 WBC (Bld) 0.3 % 0.0 - 0.9 % [facility] Comment on above: Immature Granulocyte Count (IG) includes promyelocytes, myelocytes and metamyelocytes but does not include bands. Percent differential counts (%) should be interpreted in the context of the absolute cell counts (cells/UL). Interpretation and review of laboratory results Abnormal [facility] Lymphocytes (Bld) [#/Vol] 1.92 10*3/uL [facility] Lymphocytes/100 WBC (Bld) 32.6 % 13.0 - 44.0 % [facility] MCH (RBC) [Entitic mass] 34.4 pg High 26.0 - 34.0 pg [facility] MCHC (RBC) [Mass/Vol] 35.0 g/dL 32.0 - 36.0 g/dL [facility] MCV (RBC) [Entitic vol] 98 fL 80 - 100 fL [facility] Monocytes (Bld) [#/Vol] 0.22 10*3/uL [facility] Monocytes/100 WBC (Bld) 3.7 % 2.0 - 10.0 % [facility] Neutrophils (Bld) [#/Vol] 3.63 10*3/uL [facility] Comment on above: Percent differential counts (%) should be interpreted in the context of the absolute cell counts (cells/uL). Neutrophils/100 WBC (Bld) 61.7 % 40.0 - 80.0 % [facility] Nucleated RBC/100 WBC (Bld) [Ratio] 0.0 % [facility] Platelets (Bld) [#/Vol] 89 10*3/uL Low [facility] Comment on above: Platelet count verif ied by smear review. RBC (Bld) [#/Vol] 4.01 10*6/uL [facility] WBC (Bld) [#/Vol] 5.9 10*3/uL [facility] Comprehensive metabolic 2000 panelon 12-14-2022 Albumin BCP dye [Mass/Vol] 4.3 g/dL 3.4 - 5.0 g/dL [facility] ALP [Catalytic activity/Vol] 131 U/L High 33 - 110 U/L [facility] ALT With P-5'-P [Catalytic activity/Vol] 113 U/L High 7 - 45 U/L [facility] Comment on above: Patients treated wit h Sulfasalazine may generate falsely decreased results for ALT. Anion gap [Moles/Vol] 11 mmol/L 10 - 2 0 mmol/L [facility] AST With P-5'-P [Catalytic activity/Vol] 180 U/L High 9 - 39 U/L [facility] Bilirubin [Mass/Vol] 1.0 mg/dL 0.0 - 1 .2 mg/dL [facility] Calcium [Mass/Vol] 9.9 mg/dL 8.6 - 10. 3 mg/dL [facility] Chloride [Moles/Vol] 99 mmol/L 98 - 10 7 mmol/L [facility] CO2 [Moles/Vol] 27 mmol/L 21 - 32 mmol/L [facility] Creatinine [Mass/Vol] 0.68 mg/dL 0.50 - 1.05 mg/dL [facility] GFR/1.73 sq M.predicted MDRD (S/P/Bld) [Vol rate/Area] - PINF [facility] Comment on above: Calculations of jerel mated GFR are performed using the 2020 CKD-EPI Study Refit equation without the race variable for the IDMS-Traceable creatinine methods. https://jasn.asnjournals.org/content//ASN.555092 9541 Glucose [Mass/Vol] 81 mg/dL 74 - 99 mg/dL [facility] Interpretation and review of laboratory results Abnormal [facility] Potassium [Moles/Vol] 4.2 mmol/L 3.5 - 5.3 mmol/L [facility] Protein [Mass/Vol] 8.3 g/dL High 6.4 - 8.2 g/dL [facility] Sodium [Moles/Vol] 133 mmol/L Low 136 - 145 mmol/L [facility] Urea nitrogen [Mass/Vol] 10 mg/dL 6 - 23 mg/dL [facility] Albumin BCP dye [Mass/Vol] 4.2 g/dL Normal 3.4-5.0 [facility] Comment on above: Performed By: #### 2 4323-8 #### CARLTON Barragan ([id number]) [facility] ([facility]) [address] [place] [address] ALP [Catalytic activity/Vol] 126 U/L High 33-110 [facility] Comment on above: Performed By: #### 2 4323-8 #### CARLTON Barragan ([id number]) [facility] ([facility] [place]) [address] [place] [address] 89415 ALT With P-5'-P [Catalytic activity/Vol] 109 U/L High 7-45 [facility] Comment on above: Result Comment: Tran ents treated with Sulfasalazine may generate falsely decreased results for ALT. Performed By: #### 2 4323-8 #### CARLTON Barragan ([id number]) [facility] ([facility] [place]) [address] [place] [address] 30247 Anion gap [Moles/Vol] 12 mmol/L Normal 10-20 [facility] Comment on above: Performed By: #### 2 4323-8 #### CARLTON Barragan ([id number]) [facility] ([facility] [place]) [address] [place] [address] 05541 AST With P-5'-P [Catalytic activity/Vol] 172 U/L High 9-39 [facility] Comment on above: Result Comment: MODE RATE HEMOLYSIS DETECTED. The result may be falsely elevated due to hemolysis or other interferents. Clinical correlation is recommended. Repeat testing may be considered. Performed By: #### 2 4323-8 #### CARLTON Barragan ([id number]) [facility] ([facility] [place]) [address] [place] [address] 23057 Bilirubin [Mass/Vol] 1.3 mg/dL High 0.0-1.2 [facility] Comment on above: Performed By: #### 2 432-8 #### CARLTON Barragan ([id number]) [facility] ([facility] [place]) [address] [place] [address] 30850 Calcium [Mass/Vol] 10.0 mg/dL Normal 8.6-10.3 [facility] Comment on above: Performed By: #### 2 432-8 #### CARLTON Barragan ([id number]) [facility] ([facility] [place]) [address] [place] [address] 27975 Chloride [Moles/Vol] 100 mmol/L Normal 98-107 [facility] Comment on above: Performed By: #### 2 4323-8 #### CARLTON Barragan ([id number]) [facility] ([facility] [place]) [address] [place] [address] 59534 CO2 [Moles/Vol] 26 mmol/L Normal 21-32 [facility] Comment on above: Performed By: #### 2 432-8 #### CARLTON Barragan ([id number]) [facility] ([facility] [place]) [address] [place] [address] 13010 Creatinine [Mass/Vol] 0.59 mg/dL Normal 0.50-1.05 [facility] Comment on above: Performed By: #### 2 4323-8 #### CARLTON Barragan ([id number]) [facility] ([facility] [place]) [address] [place] [address] 80223 GFR/1.73 sq M.predicted MDRD (S/P/Bld) [Vol rate/Area] mL/min/{1.73_m2} Normal >60 [facility] Comment on above: Result Comment: Calc ulations of estimated GFR are performed using the 2020 CKD-EPI Study Refit equation without the race variable for the IDMS-Traceable creatinine methods. https://jasn.asnjournals.org/content/early//ASN.237309 8531 Performed By: #### 2 4323-8 #### CARLTON Barragan ([id number]) [facility] ([facility] [place]) [address] [place] [address] 48362 Glucose [Mass/Vol] 104 mg/dL High 74-99 [facility] Comment on above: Performed By: #### 2 4323-8 #### CARLTON Barragan ([id number]) [facility] ([facility] [place]) [address] [place] [address] 10704 Potassium [Moles/Vol] 5.4 mmol/L High 3.5-5.3 [facility] Comment on above: Result Comment: MODE RATE HEMOLYSIS DETECTED. The result may be falsely elevated due to hemolysis or other interferents. Clinical correlation is recommended. Repeat testing may be considered. Performed By: #### 2 4323-8 #### CARLTON Barragan ([id number]) [facility] ([facility] [place]) [address] [place] [address] 49450 Protein [Mass/Vol] 8.3 g/dL High 6.4-8.2 [facility] Comment on above: Performed By: #### 2 4323-8 #### CARLTON Barragan ([id number]) [facility] ([facility] [place]) [address] [place] [address] 90789 Sodium [Moles/Vol] 133 mmol/L Low 136-145 [facility] Comment on above: Performed By: #### 2 4323-8 #### CARLTON Barragan ([id number]) [facility] ([facility] [place]) [address] [place] [address] 53297 Urea nitrogen [Mass/Vol] 10 mg/dL Normal 6- [facility] Comment on above: Performed By: #### 2 4323-8 #### CARLTON Barragan ([id number]) [facility] ([facility] [place]) [address] [place] [address] 07482 Drug Screen, Urineon 023 Amphetamines Screen Ql (U) Negative Presumptive Negative [facility] Comment on above: CUTOFF LEVEL: 500 NG /ML Cross-reactivity has been reported with high concentrations of the following drugs: buproprion, chloroquine, chlorpromazine, ephedrine, mephentermine, fenfluramine, phentermine, phenylpropanolamine, pseudoephedrine, and propranolol. Barbiturates Screen Ql (U) Negative Presumptive Negative [facility] Comment on above: CUTOFF LEVEL: 200 NG /ML Benzodiazepines Ql (U) Positive Abnormal Presumptive Negative [facility] Comment on above: CUTOFF LEVEL: 200 NG /ML Benzoylecgonine Screen Ql (U) Negative Presumptive Negative [facility] Comment on above: CUTOFF LEVEL: 150 NG /ML Cannabinoids Screen Ql (U) Negative Presumptive Negative [facility] Comment on above: CUTOFF LEVEL: 50 NG/ ML fentaNYL+Norfentanyl Screen Ql (U) Negative Presumptive Negative [facility] Comment on above: CUTOFF LEVEL: 5 NG/M L Interpretation and review of laboratory results Abnormal [facility] Opiates Screen Ql (U) Negative Presum ptive Negative [facility] Comment on above: CUTOFF LEVEL: 300 NG /ML The opiate screen does not detect fentanyl, meperidine, or tramadol. Oxycodone is not consistently detected (refer to Oxycodone Screen, Urine result). oxyCODONE+oxyMORphone Screen Ql (U) Negative Presumptive Negative [facility] Comment on above: CUTOFF LEVEL: 100 NG /ML This test will accurately detect both oxycodone and oxymorphone. Phencyclidine Ql (U) Negative Presump tive Negative [facility] Comment on above: CUTOFF LEVEL: 25 NG/ ML Cross-reactivity has been reported with dextromethorphan. Drug screen results are presumptive and should not be used to assess compliance with prescribed medication. Contact the performing [facility] laboratory to add-on definitive confirmatory [...] be directed to the laboratory medical directors. [facility] Ethanolon 12-14-2022 Ethanol [Mass/Vol] mg/dL Normal <=10 [facility] Comment on above: Result Comment: For medical use only. Performed By: #### 5 643-2 #### CARLTON Barragan ([id number]) [facility] ([facility]) [address] [place] [address] 39663 HCG ( test) IA.rapi d Ql (U)Ordered By: Isabelle Lomeli on 12-14-2022 HCG ( test) Ql (U) Negative NEGATIVE [facility] Interpretation and review of laboratory results Normal [facility] HIV 1+2 Ab+HIV1 p24 Agon HIV 1+2 Ab+HIV1 p24 Ag IA Ql Non-Reactive Normal Nonreactive [facility] Comment on above: Order Comment: HIV A [...] By: #### 5 6888-1 #### MERLY Barragan ([id number]) [facility] ([facility]) [address] [place] [address] No Panel Informationon 12-14 [facility] RBC shape Nom (Bld)on 2022 RBC morphology finding Nom (Bld) No significant RBC morphology present [facility] Reagin Abon 12-14-2022 Reagin Ab RPR Ql (S) Non-Reactive Normal [facility] Comment on above: Performed By: #### 2 4323-8 #### CARLTON Barragan ([id number]) [facility] ([facility]) [address] [place] [address] Urinalysis complete panel (U )on 12-14-2022 Appearance (U) Clear Clear [facility] Bilirubin (U) [Mass/Vol] Negative NEGATIVE [facility] Color (U) Yellow Straw, Yellow [facility] Glucose Auto test strip (U) [Mass/Vol] Negative NEGATIVE mg/dL [facility] Interpretation and review of laboratory results Abnormal [facility] Ketones (U) [Mass/Vol] Negative NEGATIVE mg/dL [facility] Leukocyte esterase Auto test strip Ql (U) Negative NEGATIVE [facility] Nitrite Auto test strip Ql (U) Negative NEGATIVE [facility] pH (U) 8.0 [pH] 5.0, 5.5, 6.0, 6.5, 7.0, 7.5, 8.0 [facility] Protein (U) [Mass/Vol] Negative NEGATIVE mg/dL [facility] RBC (U) [#/Vol] Negative NEGATIVE [facility] Specific gravity (U) [Rel density] 1.006 1.005 - 1.035 [facility] Urobilinogen (U) [Mass/Vol] 4.0 mg/dL Abnormal NINF - 2.0 mg/dL [facility] Comment on above: Some pigments and me dications may cause a false positive urobilinogen. [facility] ED Note-Physicianon 12-14-19 ED Note-Physician [id number] F Normal [facility] BUPRENORPHINE SCREEN TO CONF IRM,URINEon 12-12-2022 Buprenorphine Screen Ql (U) Negative Normal Cutoff 5 [facility] Comment on above: Performed By: #### B UPRS #### [facility] ([place]) ([id number]) [address] [place] [address] Drug screen comment (U) [Interp] See Note Normal [facility] Comment on above: Result Comment: INTE RPRETIVE [...] not valid for forensic use. Performed By: [facility] [address] [place] [address] Automatic Pad Making Machine Operator: Issa Waller MD, PhD CLIA Number: [id number] Performed By: #### B UPRS #### [facility] ([place]) ([id number]) [address] [place] [address] DRUG SCREEN,URINEon 12-13-19 23 Amphetamines Screen Ql (U) Negative Normal Presumptive Negative [facility] Comment on above: Order Comment: Drug screen results are presumptive and should not be used to assess compliance with prescribed medication. Contact the performing [facility] laboratory to add-on definitive confirmatory [...] pseudoephedrine, and propranolol. Performed By: #### Sadiq RUG3 #### CARLTON Barragan ([id number]) [facility] ([facility]) [address] [place] [address] Barbiturates Screen Ql (U) Negative Normal Presumptive Negative [facility] Comment on above: Order Comment: Drug screen results are presumptive and should not be used to assess compliance with prescribed medication. Contact the performing [facility] laboratory to add-on definitive confirmatory [...] FF LEVEL: 200 NG/ML Performed By: #### Sadiq RUG3 #### CARLTON Barragan ([id number]) [facility] ([facility]) [address] [place] [address] Benzodiazepines Ql (U) Negative Normal Presumptive Negative [facility] Comment on above: Order Comment: Drug screen results are presumptive and should not be used to assess compliance with prescribed medication. Contact the performing [facility] laboratory to add-on definitive confirmatory [...] FF LEVEL: 200 NG/ML Performed By: #### Sadiq RUG3 ###Dwight Barragan ([id number]) [facility] ([facility] [place]) [address] [place] [address] 11193 Benzoylecgonine Screen Ql (U) Negative Normal Presumptive Negative [facility] Comment on above: Order Comment: Drug screen results are presumptive and should not be used to assess compliance with prescribed medication. Contact the performing [facility] laboratory to add-on definitive confirmatory [...] By: #### D RUG3 #### CARLTON Barragan ([id number]) [facility] ([facility]) [address] [place] [address] 84793 Cannabinoids Screen Ql (U) Negative Normal Presumptive Negative [facility] Comment on above: Order Comment: Drug screen results are presumptive and should not be used to assess compliance with prescribed medication. Contact the performing [facility] laboratory to add-on definitive confirmatory [...] By: #### D RUG3 #### CARLTON Barragan ([id number]) [facility] ([facility] [place]) [address] [place] [address] 63750 fentaNYL+Norfentanyl Screen Ql (U) Negative Normal Presumptive Negative [facility] Comment on above: Order Comment: Drug screen results are presumptive and should not be used to assess compliance with prescribed medication. Contact the performing [facility] laboratory to add-on definitive confirmatory [...] By: #### D RUG3 #### CARLTON Barragan ([id number]) [facility] ([facility]) [address] [place] [address] 17051 Opiates Screen Ql (U) Negative Normal Presum ptive Negative [facility] Comment on above: Order Comment: Drug screen results are presumptive and should not be used to assess compliance with prescribed medication. Contact the performing [facility] laboratory to add-on definitive confirmatory [...] By: #### D RUG3 #### CARLTON Barragan ([id number]) [facility] ([facility]) [address] [place] [address] 19912 oxyCODONE+oxyMORphone Screen Ql (U) Negative Normal Presumptive Negative [facility] Comment on above: Order Comment: Drug screen results are presumptive and should not be used to assess compliance with prescribed medication. Contact the performing [facility] laboratory to add-on definitive confirmatory [...] By: #### Sadiq MARSHALL3 #### CARLTON Barragan ([id number]) [facility] ([facility]) [address] [place] [address] 33140 Phencyclidine Ql (U) Negative Normal Presump tive Negative [facility] Comment on above: Order Comment: Drug screen results are presumptive and should not be used to assess compliance with prescribed medication. Contact the performing [facility] laboratory to add-on definitive confirmatory [...] By: #### D RUG3 #### CARLTON Barragan ([id number]) [facility] ([facility]) [address] [place] [address] 56801 Gabapentinon 12-12-2022 Gabapentin (U) [Mass/Vol] 242.4 ug/mL Normal [facility] Comment on above: Result Comment: INTE RPRETIVE [...] developed and its performance characteristics determined by [facility]. It has not been cleared or approved by the [place] Food and Drug Administration. This test was performed in a CLIA certified laboratory and is intended for clinical purposes. Performed By: [facility] [address] [place] [address] Automatic Pad Making Machine Operator: Issa Waller MD, PhD CLIA Number: [id number] Performed By: #### 2 4323-8 #### CARLTON Barragan ([id number]) [facility] ([facility]) [address] [place] [address] 08945 Acetaminophen [Mass/volume] in Serum or PlasmaOrdered By: Ari Aguero on 12-11-2022 Acetaminophen [Mass/Vol] 0.3 ug/mL Low 10.0-30.0 [facility] Comment on above: Result Comment: PERF ORMED BY: [place] [address] PATHOLOGIST [employer] MANA[employer] LEE CARDOSO M.D. Performed By: #### C MP, LIPASE, CBC #### [facility] [address] [place] [address] Alanine aminotransferase [En zymatic activity/volume] in Serum or PlasmaOrdered By: Ari Aguero on 12-11-2022 ALT [Catalytic activity/Vol] 125 U/L High 7-52 [facility] Comment on above: Performed By: #### C MP, LIPASE, CBC #### [facility] [address] [place], [place] [id number] [place] Albumin [Mass/volume] in Ser um or Plasma by Bromocresol green (BCG) dye binding methoOrdered By: Ari Aguero on 12-11-2022 Albumin BCG dye [Mass/Vol] 3.8 g/dL 3.5-5.7 [facility] Alkaline phosphatase [Enzyma tic activity/volume] in Serum or PlasmaOrdered By: Ari Aguero on 12-11-2022 ALP [Catalytic activity/Vol] 132 U/L High 34-104 [facility] Comment on above: Performed By: #### C MP, LIPASE, CBC #### [address] Amphetamine Screen Ql (U)Ord ered By: Ari Aguero on 12-11-2022 Amphetamines Ql (U) Negative Negative [facility] Aspartate aminotransferase [ Enzymatic activity/volume] in Serum or PlasmaOrdered By: Ari Aguero on 12-11-2022 AST [Catalytic activity/Vol] 223 U/L High 13-39 [facility] Comment on above: Performed By: #### C MP, LIPASE, CBC #### [address] Automated basophil %Ordered By: Ari Aguero on 12-11-2022 Basophils/100 WBC (Bld) 0.7 % Normal . [facility] Comment on above: Performed By: #### C MP, LIPASE, CBC #### [address] Automated basophil countOrde red By: Ari Aguero on 12-11-2022 Basophils (Bld) [#/Vol] 0.0 10*3/uL Normal 0.0-0.2 [facility] Comment on above: Result Comment: PERF ORMED BY: [place] [address] PATHOLOGIST [employer] MANA[employer] LEE CARDOSO M.D. Performed By: #### C MP, LIPASE, CBC #### [address] Automated blood monocyte cou ntOrdered By: Ari Aguero on 12-11-2022 Monocytes (Bld) [#/Vol] 0.2 10*3/uL Normal 0.0-0.8 [facility] Comment on above: Performed By: #### C MP, LIPASE, CBC #### [address] Automated eosinophil %Ordere d By: Ari Aguero on 12-11-2022 Eosinophils/100 WBC (Bld) 0.8 % Normal . [facility] Comment on above: Performed By: #### C MP, LIPASE, CBC #### [address] Automated eosinophil countOr dered By: Ari Aguero on 12-11-2022 Eosinophils (Bld) [#/Vol] 0.0 10*3/uL Normal 0.0-0.45 [facility] Comment on above: Performed By: #### C MP, LIPASE, CBC #### [address] Automated monocyte %Ordered By: Ari Aguero on 12-11-2022 Monocytes/100 WBC (Bld) 5.9 % Normal . [facility] Comment on above: Performed By: #### C MP, LIPASE, CBC #### [address] Automated neutrophil %Ordere d By: Ari Aguero on 12-11-2022 Neutrophils/100 WBC (Bld) 42.1 % Normal . [facility] Comment on above: Performed By: #### C MP, LIPASE, CBC #### [address] Automated urine color determ inationOrdered By: Ari Aguero on 12-11-2022 Color (U) Yellow Normal Yellow [facility] Comment on above: Order Comment: Name Collection Type:: Clean-Voided Midstream Performed By: #### E ODALIS, MG, CMP, CBC #### [address] Barbiturates [Presence] in U rine by Screen methodOrdered By: Ari Aguero on 12-11-2022 Barbiturates Screen Ql (U) Negative Negative [facility] Benzodiazepines Screen Ql (U )Ordered By: Ari Aguero on 12-11-2022 Benzodiazepines Ql (U) Negative Negative [facility] Benzoylecgonine [Presence] i n Urine by Screen methodOrdered By: Ari Aguero on 12-11-2022 Benzoylecgonine Screen Ql (U) Negative Negative [facility] Bilirubin Test strip Ql (U)O rdered By: Ari Aguero on 12-11-2022 Bilirubin Ql (U) Negative Negative [facility] Bilirubin.total [Mass/volume ] in Serum or PlasmaOrdered By: Ari Aguero on 12-11-2022 Bilirubin [Mass/Vol] 0.5 mg/dL Normal 0.3-1.[address] [facility] Comment on above: Performed By: #### C MP, LIPASE, CBC #### [facility] [address] [place] [address] [place] Calcium [Mass/volume] in Ser um or PlasmaOrdered By: Ari Aguero on 12-11-2022 Calcium [Mass/Vol] 8.5 mg/dL Low 8.6-10.3 [facility] Comment on above: Performed By: #### C MP, LIPASE, CBC #### [facility] [address] [place] [address] [place] Cannabinoids [Presence] in U rine by Screen methodOrdered By: Ari Aguero on 12-11-2022 Cannabinoids Screen Ql (U) Negative Negative [facility] Comment on above: These are unconfirme d results and should not be used for legal purposes. Drug Cut-Off Concentration: AMPH 1000 ng/mL JANELL 200 ng/mL JAMES 200 ng/mL COCM 300 ng/mL OP 300 ng/mL PCP 25 ng/mL THC 20 ng/mL Carbon dioxide, total [Moles /volume] in Serum or PlasmaOrdered By: Ari Aguero on 12-11-2022 CO2 [Moles/Vol] 23.7 mmol/L Normal 21.0-31.0 [facility] Comment on above: Performed By: #### C MP, LIPASE, CBC #### [facility] [address] [id number] [place] Chloride [Moles/volume] in S marbella or PlasmaOrdered By: Ari Aguero on 12-11-2022 Chloride [Moles/Vol] 109 mmol/L High 98-[address] [facility] Comment on above: Performed By: #### C MP, LIPASE, CBC #### [address] Complete Blood Count Auto Di ffon 12-11-2022 Mean Corpuscular HGB Conc 33.5 g/dL Normal 32.0-35.0 [facility] Comment on above: Performed By: #### C MP, LIPASE, CBC #### [address] Monocytes/100 WBC (Bld) 18.99 % Normal 0.00-20.00 [facility] Comment on above: Performed By: #### C MP, LIPASE, CBC #### [address] NRBC% 0.3 /100{WBC} Normal 0-0.[address] [facility] Comment on above: Performed By: #### C MP, LIPASE, CBC #### [address] Comprehensive Metabolic Pane mary beth 12-11-2022 Albumin [Mass/Vol] 3.8 g/dL Normal 3.5-5.7 [facility] Comment on above: Performed By: #### C MP, LIPASE, CBC #### [address] Creatinine Clr Calc Pharmacy 165.10 Normal [facility] Comment on above: Result Comment: PERF ORMED BY: [place] [address] PATHOLOGIST [employer] LEE CARDOSO M.D. Performed By: #### C MP, LIPASE, CBC #### [address] GFR/1.73 sq M.predicted MDRD (S/P/Bld) [Vol rate/Area] mL/min/{1.73_m2} Normal [facility] Comment on above: Performed By: #### C MP, LIPASE, CBC #### [address] Creatinine [Mass/volume] in Serum or PlasmaOrdered By: Ari Aguero on 12-11-2022 Creatinine [Mass/Vol] 0.51 mg/dL Low 0.60-1.20 [facility] Comment on above: Performed By: #### C MP, LIPASE, CBC #### [address] Discharge Instructionson Discharge Instructions [id number] FF Normal [facility] Drug Screen,Urineon 12-12-19 Amphetamine Screen,Urine Negative Normal Negative [facility] Comment on above: Performed By: #### C MP, LIPASE, CBC #### [address] Barbiturate Screen,Urine Negative Normal Negative [facility] Comment on above: Performed By: #### C MP, LIPASE, CBC #### [address] Benzodiazepines Screen,Urine Negative Normal Negative [facility] Comment on above: Performed By: #### C MP, LIPASE, CBC #### [address] Cannabinoid Screen,Urine Negative Normal Negative [facility] Comment on above: Result Comment: Thes e are unconfirmed results and should not be used for legal purposes. Drug Cut-Off Concentration: AMPH 1000 ng/mL JANELL 200 ng/mL JAMES 200 ng/mL COCM 300 ng/mL OP 300 ng/mL PCP 25 ng/mL THC 20 ng/mL PERFORMED BY: [place] [address] PATHOLOGIST [employer] LEE CARDOSO M.D. Performed By: #### C MP, LIPASE, CBC #### [address] Cocaine Screen,Urine Negative Normal Negative [facility] Comment on above: Performed By: #### C MP, LIPASE, CBC #### [address] [address] [place] Opiate Screen,Urine Negative Normal Negative [facility] Comment on above: Performed By: #### C MP, LIPASE, CBC #### [address] Phencyclidine Screen,Urine Negative Normal Negative [facility] Comment on above: Performed By: #### C MP, LIPASE, CBC #### [address] Erythrocyte distribution wid th [Ratio] by Automated countOrdered By: Ari Aguero on 12-11-2022 Erythrocyte distribution width (RBC) [Ratio] 14.3 % Normal 11.9-15.3 [facility] Comment on above: Performed By: #### C MP, LIPASE, CBC #### [address] Erythrocytes [#/volume] in B lood by Automated countOrdered By: Ari Aguero on 12-11-2022 RBC (Bld) [#/Vol] 4.06 10*6/uL Normal 3.60-5.00 [facility] Comment on above: Performed By: #### C MP, LIPASE, CBC #### [address] Ethanol [Mass/volume] in Ser um or PlasmaOrdered By: Ari Aguero on 12-11-2022 Ethanol [Mass/Vol] 287 mg/dL Normal [facility] Comment on above: Performed By: #### C MP, LIPASE, CBC #### [address] Ethanol [Mass/Vol] 0.287 % [facility] Ethyl Alcohol Profileon 11-13 Percent Ethanol 0.287 % Normal [facility] Comment on above: Result Comment: PERF ORMED BY: [place] [address] PATHOLOGIST [employer] LEE CARDOSO M.D. Performed By: #### C MP, LIPASE, CBC #### [address] Glucose [Mass/volume] in Ser um or PlasmaOrdered By: Ari Aguero on 12-11-2022 Glucose [Mass/Vol] 93 mg/dL Normal 70-100 [facility] Comment on above: ADA recommended refe rence rangeRandom Glucose Reference Range is dependent on time and content of last meal. Glucose of more than 200 mg/dL in a nonstressed, ambulatory subject supports the diagnosis of Diabetes Mellitus. Result Comment: [place] om Glucose Reference Range is dependent on time and content of last meal. Glucose of more than 200 mg/dL in a nonstressed, ambulatory subject supports the diagnosis of Diabetes Mellitus. ADA recommended reference range Performed By: #### C MP, LIPASE, CBC #### [facility] [address] [place] [address] HCG ( test) IA.rapi d Ql (U)Ordered By: Ari Aguero on 12-11-2022 HCG ( test) Ql (U) Negative [facility] HCG,Urineon 12-11-2022 Beta HCG ( test) Ql (U) Negative Normal [facility] Comment on above: Order Comment: Name Collection Type:: Clean-Voided Midstream Result Comment: PERF ORMED BY: [place] [address] PATHOLOGIST [employer] LEE CARDOSO M.D. Performed By: #### E ODALIS, MG, CMP, CBC #### [facility] [address] [place] [address] Hematocrit [Volume Fraction] of Blood by Automated countOrdered By: Ari Aguero on 12-11-2022 Hematocrit (Bld) [Volume fraction] 41.0 % Normal 34.0-46.4 [facility] Comment on above: Performed By: #### C MP, LIPASE, CBC #### [facility] [address] [place] [address] Hemoglobin [Mass/volume] in BloodOrdered By: Ari Aguero on 12-11-2022 Hemoglobin (Bld) [Mass/Vol] 13.8 g/dL Normal 11.8-15.4 [facility] Comment on above: Performed By: #### C MP, LIPASE, CBC #### [address] Ketones Auto test strip (U) [Mass/Vol]Ordered By: Ari Aguero on 12-11-2022 Ketones (U) [Mass/Vol] Negative Negative [facility] Leukocytes [#/volume] correc jose for nucleated erythrocytes in Blood by Automated counOrdered By: Ari Aguero on 12-11-2022 WBC corrected for nucl RBC Auto (Bld) [#/Vol] 3.7 10*3/uL 3.8-11.6 [facility] Leukocytes [#/volume] in Blo od by Automated countOrdered By: Ari Aguero on 12-11-2022 WBC (Bld) [#/Vol] 3.7 10*3/uL Low 3.8-11.6 [facility] Comment on above: Performed By: #### C MP, LIPASE, CBC #### [address] Lymphocytes [#/volume] in Bl ood by Automated countOrdered By: Ari Aguero on 12-11-2022 Lymphocytes (Bld) [#/Vol] 1.9 10*3/uL Normal 1.00-4.8 [facility] Comment on above: Performed By: #### C MP, LIPASE, CBC #### [address] Lymphocytes/100 leukocytes i n Blood by Automated countOrdered By: Ari Aguero on 12-11-2022 Lymphocytes/100 WBC (Bld) 50.5 % Normal . [facility] Comment on above: Performed By: #### C MP, LIPASE, CBC #### [place] [address] [place] MCH [Entitic mass] by Automa jose countOrdered By: Ari Aguero on 12-11-2022 MCH (RBC) [Entitic mass] 33.9 pg Normal 24.7-34.3 [facility] Comment on above: Performed By: #### C MP, LIPASE, CBC #### [address] [place] [address] [place] MCHC Auto (RBC) [Mass/Vol]Or dered By: Ari Aguero on 12-11-2022 MCHC (RBC) [Mass/Vol] 33.5 g/dL 32.0-35.0 [facility] MCV [Entitic volume] by Auto mated countOrdered By: Ari Aguero on 12-11-2022 MCV (RBC) [Entitic vol] 101.1 fL High 80-100 [facility] Comment on above: Performed By: #### C MP, LIPASE, CBC #### [facility] [address] [place] [address] Monocyte distribution width [Entitic volume] in Blood by AutomatedOrdered By: Ari Aguero on 12-11-2022 Monocyte distribution width Auto (Bld) [Entitic vol] 18.99 % 0.00-20.00 [facility] Neutrophils [#/volume] in Bl ood by Automated countOrdered By: Ari Aguero on 12-11-2022 Neutrophils (Bld) [#/Vol] 1.6 10*3/uL Low 1.8-7.7 [facility] Comment on above: Performed By: #### C MP, LIPASE, CBC #### [facility] [address] [place] [address] Nitrite Test strip Ql (U)Ord ered By: Ari Aguero on 12-11-2022 Nitrite Ql (U) Negative Negative [facility] No Panel InformationOrdered By: Ari Aguero on 12-11-2022 Estimated GFR (CKD-EPI) > 60.0 mL/Min [facility] Creatinine Clearance (Chem 165.10 [facility] Nucleated erythrocytes [Pres ence] in Blood by Automated countOrdered By: Ari Aguero on 12-11-2022 Nucleated RBC Auto Ql (Bld) 0.3 /100{WBC} 0-0.5 [facility] Opiates [Presence] in Urine by Screen methodOrdered By: Ari Aguero on 12-11-2022 Opiates Screen Ql (U) Negative Negative [facility] Phencyclidine Screen Ql (U)O rdered By: Ari Aguero on 12-11-2022 Phencyclidine Ql (U) Negative Negative [facility] Platelet mean volume [Entiti c volume] in Blood by Automated countOrdered By: Ari Aguero on 12-11-2022 Platelet mean volume (Bld) [Entitic vol] 9.0 fL Normal 6.3-10.7 [facility] Comment on above: Performed By: #### C MP, LIPASE, CBC #### [address] Platelets [#/volume] in Bloo d by Automated countOrdered By: Ari More on 12-11-2022 Platelets (Bld) [#/Vol] 103 10*3/uL Low 150-450 [facility] Comment on above: Performed By: #### C MP, LIPASE, CBC #### [address] Potassium [Moles/volume] in Serum or PlasmaOrdered By: Ari Aguero on 12-11-2022 Potassium [Moles/Vol] 4.0 mmol/L Normal 3.5-5.1 [facility] Comment on above: Performed By: #### C MP, LIPASE, CBC #### [address] Protein Auto test strip (U) [Mass/Vol]Ordered By: Ari Aguero on 12-11-2022 Protein (U) [Mass/Vol] Negative Negative [facility] Protein [Mass/volume] in Ser um or PlasmaOrdered By: Ari Aguero on 12-11-2022 Protein [Mass/Vol] 7.0 g/dL Normal 6.4-8.9 [facility] Comment on above: Performed By: #### C MP, LIPASE, CBC #### [place] [address] [place] Salicylateon 12-11-2022 Salicylate < 1.5 Low 15.0-30.0 [facility] Comment on above: Result Comment: Tran ents treated with Sulfasalazine may generate a false high result for Salicylate. Performed By: #### C MP, LIPASE, CBC #### [address] Salicylates [Mass/volume] in Serum or PlasmaOrdered By: Ari Aguero on 12-11-2022 Salicylates [Mass/Vol] mg/dL 15.0-30.0 [facility] Comment on above: Patients treated wit h Sulfasalazine may generate a false high result for Salicylate. Serum globulin measurement b y calculation (mass/volume)Ordered By: Ari Aguero on 12-11-2022 Globulin (S) [Mass/Vol] 3.2 g/dL Normal [facility] Comment on above: Performed By: #### C MP, LIPASE, CBC #### [address] Serum or plasma albumin/glob ulin mass ratioOrdered By: Ari Aguero on 12-11-2022 Albumin/Globulin [Mass ratio] 1.2 {ratio} [facility] Comment on above: Performed By: #### C MP, LIPASE, CBC #### [address] Serum or plasma anion gap de terminationOrdered By: Ari Aguero on 12-11-2022 Anion gap [Moles/Vol] 13.3 mmol/L Normal 6.0-15.[address] [facility] Comment on above: Performed By: #### C MP, LIPASE, CBC #### [address] Sodium [Moles/volume] in Ser um or PlasmaOrdered By: Ari Aguero on 12-11-2022 Sodium [Moles/Vol] 142 mmol/L Normal 136-145 [facility] Comment on above: Performed By: #### C MP, LIPASE, CBC #### [address] Specific gravity Auto test s trip (U) [Rel density]Ordered By: Ari Aguero on 12-11-2022 Specific gravity (U) [Rel density] 1.011 1.001-1.030 [facility] Urea nitrogen [Mass/volume] in Serum or PlasmaOrdered By: Ari Aguero on 12-11-2022 Urea nitrogen [Mass/Vol] 7 mg/dL Normal 7-25 [facility] Comment on above: Performed By: #### C MP, LIPASE, CBC #### [facility] [address] [place] [address] Urinalysison 12-11-2022 Appearance (U) Clear Normal Clear [facility] Comment on above: Order Comment: Name Collection Type:: Clean-Voided Midstream Performed By: #### E ODALIS, MG, CMP, CBC #### [address] Bilirubin,Urine Negative Normal Negative [facility] Comment on above: Order Comment: Name Collection Type:: Clean-Voided Midstream Performed By: #### E ODALIS, MG, CMP, CBC #### [address] Glucose Ql (U) Normal Normal Normal [facility] Comment on above: Order Comment: Name Collection Type:: Clean-Voided Midstream Performed By: #### E ODALIS, MG, CMP, CBC #### [address] Ketones Ql (U) Negative Normal Negative [facility] Comment on above: Order Comment: Name Collection Type:: Clean-Voided Midstream Performed By: #### E ODALIS, MG, CMP, CBC #### [address] Leukocyte esterase Test strip Ql (U) Negative Normal Negative [facility] Comment on above: Order Comment: Name Collection Type:: Clean-Voided Midstream Performed By: #### E ODALIS, MG, CMP, CBC #### [place] [address] [place] Nitrite,Urine Negative Normal Negative [facility] Comment on above: Order Comment: Name Collection Type:: Clean-Voided Midstream Performed By: #### E ODALIS, MG, CMP, CBC #### [place] [address] [place] Occult Blood,Urine Negative Normal Negative [facility] Comment on above: Order Comment: Name Collection Type:: Clean-Voided Midstream Performed By: #### E ODALIS, MG, CMP, CBC #### [address] Protein,Urine Negative Normal Negative [facility] Comment on above: Order Comment: Name Collection Type:: Clean-Voided Midstream Performed By: #### E ODALIS, MG, CMP, CBC #### [address] Specificy [place],Urine 1.011 Normal 1.001-1.030 [facility] Comment on above: Order Comment: Name Collection Type:: Clean-Voided Midstream Performed By: #### E ODALIS, MG, CMP, CBC #### [address] Urobilinogen,Urine Normal Normal Normal [facility] Comment on above: Order Comment: Name Collection Type:: Clean-Voided Midstream Performed By: #### E ODALIS, MG, CMP, CBC #### [address] Urine clarity by refractomet ry automatedOrdered By: Ari Aguero on 12-11-2022 Clarity Refractometry automated (U) Clear Clear [facility] Urine glucose measurement by automated test strip (mass/volume)Ordered By: Ari Aguero on 12-11-2022 Glucose Auto test strip (U) [Mass/Vol] Normal mg/dL Normal [facility] Urine hemoglobin detection b y automated test stripOrdered By: Ari Aguero on 12-11-2022 Hemoglobin Auto test strip Ql (U) Negative Negative [facility] Urine leukocyte esterase det ection by automated test stripOrdered By: Ari Aguero on 12-11-2022 Leukocyte esterase Auto test strip Ql (U) Negative Negative [facility] Urine pH measurement by auto mated test stripOrdered By: Ari Aguero on 12-11-2022 pH (U) 6.0 [pH] Normal 5.0-9.0 [facility] Comment on above: Order Comment: Name Collection Type:: Clean-Voided Midstream Performed By: #### E ODALIS, MG, CMP, CBC #### [facility] [address] [id number] [facility] Urobilinogen Auto test strip (U) [Mass/Vol]Ordered By: Ari Aguero on 12-11-2022 Urobilinogen (U) [Mass/Vol] Normal mg/dL Normal [facility] Vaccinationson 12-11-2022 Vaccinations [id number] FF Normal [facility] Comment on above: Other Comment: wrong subject Valuables Checkliston 2022 Valuables Checklist [id number] FF Normal [facility] Auto Diffon 12-10-2022 Basophils/100 WBC (Bld) 2.2 % High 0.0-2.0 [facility] Comment on above: Order Comment: Order Added by Discern Expert. Performed By: #### 2 887057, 74594894, 04301382, 9758237, 8957201, 74154314, 93591468, 7162160, 6162970, 9761863 ####[facility] [address] [place] [address] Basophils/Leukocytes Auto (Bld) [Pure # fraction] 0.1 E9/L Normal 0.0-0.2 [facility] Comment on above: Order Comment: Order Added by Discern Expert. Performed By: #### 2 254312, 03298894, 13661234, 0205917, 2371273, 46055603, 95780930, 2928488, 8159595, 2871395 ####[facility] [address] [place] [address] Eosinophils/100 WBC (Bld) 1.5 % Normal 0.0-8.0 [facility] Comment on above: Order Comment: Order Added by Discern Expert. Performed By: #### 2 898244, 12435010, 79124211, 5563592, 3579588, 33153433, 77326499, 6102930, 1602778, 9687695 ####[address] [place] [address] Eosinophils/Leukocyte s Auto (Bld) [Pure # fraction] 0.1 E9/L Normal 0.0-0.5 [facility] Comment on above: Order Comment: Order Added by Discern Expert. Performed By: #### 2 815652, 18391016, 93410607, 4795104, 4034838, 12523606, 53312350, 4038858, 0254380, 4998145 ####[address] [place] [address] Lymphocytes/100 WBC (Bld) 52.9 % High 14.0-50.0 [facility] Comment on above: Order Comment: Order Added by Discern Expert. Performed By: #### 2 958184, 36481401, 59931833, 2155390, 1808241, 45770361, 26784423, 1425879, 8015832, 8656623 ####[address] [address] Lymphocytes/Leukocyte s Auto (Bld) [Pure # fraction] 2.3 E9/L Normal 1.0-4.0 [facility] Comment on above: Order Comment: Order Added by Discern Expert. Performed By: #### 2 538825, 14641652, 23529034, 8466697, 6890394, 80798819, 51332874, 5569500, 4610727, 8427537 ####[address] [place] [address] Monocytes/100 WBC (Bld) 6.7 % Normal 4.0-14.0 [facility] Comment on above: Order Comment: Order Added by Discern Expert. Performed By: #### 2 503408, 53942762, 01228110, 6192274, 4885704, 22602361, 57869520, 0911840, 2348794, 2175810 ####[address] [place] [address] Monocytes/Leukocytes Auto (Bld) [Pure # fraction] 0.3 E9/L Normal 0.2-1.0 [facility] Comment on above: Order Comment: Order Added by Discern Expert. Performed By: #### 2 610813, 27357157, 92652317, 6713478, 0532445, 64394587, 35965820, 4893148, 1361382, 3587748 ####[facility] [address] [place] [address] Neutrophils/100 WBC (Bld) 36.7 % Normal 36.0-75.0 [facility] Comment on above: Order Comment: Order Added by Discern Expert. Performed By: #### 2 319088, 17783834, 22120770, 8111628, 7070371, 14127782, 66002585, 1438554, 7745738, 8884994 ####[facility] [address] [place] [address] Neutrophils/Leukocyte s Auto (Bld) [Pure # fraction] 1.6 E9/L Low 2.0-7.5 [facility] Comment on above: Order Comment: Order Added by Discern Expert. Performed By: #### 2 043358, 75207827, 74613241, 2114390, 2533122, 97286381, 25199297, 5801867, 3718063, 5072063 ####[facility] [address] [place] [address] B hCG Qualon 12-10-2022 Beta hCG Ql Negative Normal [facility] Comment on above: Performed By: #### 2 313258, 95338826, 46540110, 5532182, 9613773, 35155217, 61592613, 5495770, 9270780, 2886217 ####[facility] [address] [place] [address] BMPon 12-10-2022 Creatinine [Mass/Vol] 0.6 mg/dL Normal 0.5-1.3 [facility] Comment on above: Performed By: #### 2 876724, 57093571, 33521488, 2639000, 6625492, 30903808, 29043747, 1977998, 3820401, 4880334 ####[facility] [address] [place] [address] Urea nitrogen [Mass/Vol] 6 mg/dL Normal 5-21 [facility] Comment on above: Performed By: #### 2 314896, 81405001, 18461826, 5019910, 3939647, 49595805, 89488985, 4825682, 5177410, 4868796 ####[facility] [address] [place] [address] Urea nitrogen/Creatinine [Mass ratio] 10 No Units Normal 10-20 [facility] Comment on above: Performed By: #### 2 041808, 52647342, 04647857, 9854002, 6916298, 36754611, 40262656, 0079220, 4203780, 7366613 ####[facility] [address] [place] [address] Anion gap [Moles/Vol] 14 mmol/L Normal 6-16 [facility] Comment on above: Performed By: #### 2 029342, 10757670, 32211320, 4329211, 4529291, 02686031, 89370847, 4309671, 7904125, 2367830 ####[facility] [address] [place] [address] Calcium [Mass/Vol] 8.8 mg/dL Low 8.9-11.1 [facility] Comment on above: Performed By: #### 2 259358, 23688050, 81330599, 6104020, 9817343, 41174363, 40645724, 2953532, 4750427, 6966592 ####[facility] [address] [place] [address] Chloride [Moles/Vol] 104 mmol/L Normal 101-111 [facility] Comment on above: Performed By: #### 2 361079, 81465264, 40436526, 9515090, 5971365, 85115813, 80131572, 8741949, 2046101, 7396651 ####[facility] [address] [place] [address] CO2 [Moles/Vol] 25 mmol/L Normal 21-31 [facility] Comment on above: Performed By: #### 2 276598, 27741196, 06684471, 8469290, 2902093, 25120957, 04080985, 9284620, 7680613, 5186947 ####[facility] [address] [place] [address] Glucose [Mass/Vol] 92 mg/dL Normal 55-199 [facility] Comment on above: Result Comment: If t his glucose result represents a fasting glucose, interpretation should refer to the following reference range: 55-99 mg/dL Performed By: #### 2 018270, 74120033, 25314238, 6304211, 2239737, 23240867, 87663619, 7520016, 3592044, 7452516 ####[facility] [address] [place] [address] Potassium [Moles/Vol] 3.9 mmol/L Normal 3.5-5.3 [facility] Comment on above: Performed By: #### 2 586318, 30712875, 02561235, 9776783, 1432701, 79723024, 71239809, 5830059, 1266959, 1758324 ####[facility] [address] [place] [address] Sodium [Moles/Vol] 139 mmol/L Normal 135-145 [facility] Comment on above: Performed By: #### 2 225208, 33984088, 35755200, 9054124, 6492893, 26261992, 99355216, 7180686, 4309131, 3611123 ####[facility] [address] [place] [address] CBC w/ Auto Diffon 10--202 3 Erythrocyte distribution width (RBC) [Ratio] 14.6 % High 10.9-14.2 [facility] Comment on above: Performed By: #### 2 820597, 56858526, 82906608, 2190694, 8414604, 49546779, 90240372, 9960555, 4624931, 7226149 ####[facility] [address] [place] [address] Hematocrit (Bld) [Volume fraction] 47.1 % High 34.0-46.0 [facility] Comment on above: Performed By: #### 2 231732, 37997039, 72138200, 9530594, 2555478, 84902290, 21413272, 7932884, 7096114, 9680132 ####[facility] [address] [place] [address] Hemoglobin (Bld) [Mass/Vol] 16.1 g/dL High 12.0-16.0 [facility] Comment on above: Performed By: #### 2 141387, 56568198, 12877878, 5880240, 3365999, 21820874, 06272068, 9726643, 8836757, 5553083 ####[facility] [address] [place] [address] MCH (RBC) [Entitic mass] 33.9 pg Normal 27.0-34.0 [facility] Comment on above: Performed By: #### 2 825830, 50561432, 09894343, 6497450, 0874815, 40915544, 81852681, 4932309, 2971784, 9601573 ####[facility] [address] [place] [address] MCHC (RBC) [Mass/Vol] 34.3 g/dL Normal 31.4-36.0 [facility] Comment on above: Performed By: #### 2 839217, 79239749, 66364420, 3631131, 4170590, 58257050, 72787525, 7911063, 2851930, 2793013 ####[facility] [address] [place] [address] MCV (RBC) [Entitic vol] 98.9 fL Normal 80.0-100.0 [facility] Comment on above: Performed By: #### 2 152333, 66031613, 31164509, 1233537, 5109165, 75449659, 15281293, 4376957, 1459272, 2468185 ####[facility] [address] [place] [address] Platelet mean volume (Bld) [Entitic vol] 8.2 fL Normal 6.4-10.8 [facility] Comment on above: Performed By: #### 2 735740, 08212551, 70230386, 5270766, 4100918, 95453293, 49167977, 0176812, 6531937, 8103336 ####[facility] [address] [place] [address] Platelets (Bld) [#/Vol] 144.0 E9/L Low 150.0-500.0 [facility] Comment on above: Performed By: #### 2 495620, 03350914, 81026736, 4622297, 1682428, 23667707, 20316868, 3355213, 3402852, 3882640 ####[facility] [address] [place] [address] RBC (Bld) [#/Vol] 4.8 E12/L Normal 4.3-5.9 [facility] Comment on above: Performed By: #### 2 219723, 34665005, 67691478, 2099035, 6796964, 81482367, 83700749, 0401239, 5987389, 3879530 ####[facility] [address] [place] [address] WBC corrected for nucl RBC Auto (Bld) [#/Vol] 4.4 E9/L Normal 4.0-11.0 [facility] Comment on above: Result Comment: Slid e reviewed by AG. Performed By: #### 2 844018, 19885404, 58868219, 6110139, 9739897, 04194118, 10669622, 6850652, 8083376, 1023798 ####[facility] [address] [place] [address] CHEMISTRYOrdered By: SYSTEM SYSTEM on 12-10-2022 Ethanol [...] Sensitivity Troponin I Instructions For Use, [employer], September 2017) Albumin [Mass/Vol] 4.2 g/dL Normal [...] 124 mL/min/1.73 m2 Normal >=59mL/min/1 .73 m2 [facility] Chem S Comment on above: Interpretive Data: [...] 46 U/L Normal 13 - 58 unit/L FT Remisol Magnesium [Mass/Vol] 1.9 mg/dL Normal 1.3 [...] Sensitivity Troponin I Instructions For Use, [employer] [place], September 2017) Urea nitrogen [Mass/Vol] 6 mg/dL Normal 5 - 21 mg/dL [facility] Remisol Urea nitrogen/Creatinine [Mass ratio] 10 mg/mg Normal 10 - 20 [facility] Remisol COAGULATIONOrdered By: Russell Lorenzo on 12-10-2022 aPTT Coag (PPP) [Time] 42.2 s High 25.1 - 36.5 second(s) [facility] Auto Coag Comment on above: Interpretive Data: [...] the same coagulation reagent and instrumentation as [facility]. Currently there are no coagulation studies available worldwide for children to 14 days, and no normal ranges. Heparin therapeutic range (represented by Anti-Factor Xa activity of 0.2 - 0.4 U/mL) corresponds to PTT of 56.6 - 109.0 sec. INR Coag (PPP) [Relative time] 1.2 {INR} Invalid Interpretation Code [facility] Auto Coag Comment on above: Interpretive Data: I NR results are specifically intended to assess patients stabilized on long-term Anticoagulation therapy suggested INR s Less Intensive Anticoagulation 2.0 3.0 Conventional Range 3.0 4.5 PT Coag (PPP) [Time] 12.8 s High 9.4 - 1 2.5 second(s) [facility] Auto Coag Comment on above: Interpretive Data: [...] the same coagulation reagent and instrumentation as [facility]. Currently there are no coagulation studies available worldwide for children to 14 days, and no normal ranges. Consent for Treatmenton 11-13 Consent for Treatment [id number]#1.00TIF F [facility] Consent for Treatment [id number]#1.00TIF F [facility] Discharge Instructionson Discharge Instructions [id number]#1.00TIF F [facility] ED Clinical Summaryon 2022 ED Clinical Summary Normal [facility] ED Clinical Summary [facility] ED Note-Nursingon 12-10-2022 ED Note-Nursing Patient belongings t aken from patient after patient asked staff if I can take the Ativan i have in my purse . When purse was taken, vodka, nail finnish remover and mouth wash taken from patient at this time. Normal [facility] ED Note-Physicianon 12-11-19 ED Note-Physician Normal [facility] Comment on above: Result Comment: Elec tronically Signed By: Darren Guzman DO\.br\Date and Time Signed: 12/10/22 21:40 EDT ED Note-Physician [facility] Comment on above: Result Comment: Elec tronically Signed By: Fabricio Gao PA-C\.br\Date and Time Signed: 12/10/22 18:31 EDT\.br\Electronically Co-Signed By: Eric Forbes DO\.br\Date and Time Co-Signed: 12/10/22 18:37 EDT ED Note-Physician Normal [facility] Comment on above: Result Comment: Elec tronically Signed By: Eric Forbes DO\.br\Date and Time Signed: 12/10/22 11:43 EDT ED Patient Education Noteon 12-10-2022 ED Patient Education Note Normal [facility] ED Patient Education Note Normal [facility] ED Patient Summaryon 023 ED Patient Summary Normal [facility] ED Patient Summary Normal [facility] Ethanolon 12-10-2022 Ethanol [Mass/Vol] 327 mg/dL Abnormal <=7 [facility] Comment on above: Result Comment: Crit ical Result verified by repeat analysis\Critical Result S_ETOH:327.0 Called to YON JENKINS AT ER by LEXI DOOLEY And Read Back For Confirmation at: 12/10/2022 18:58:35 Performed By: #### 2 778500 ####[facility] [address] [place] [address] Ethanol [Mass/Vol] 277 mg/dL Abnormal <=7 [facility] Comment on above: Result Comment: Crit ical Result verified by repeat analysis\Critical Result S_ETOH:277.0 Called to MANFRED RAUSCH AT ER by PERICO GOULD And Read Back For Confirmation at: 12/10/2022 09:05:13 Performed By: #### 2 186383 ####[facility] [address] [place] [address] HEMATOLOGYOrdered By: SYSTEM SYSTEM on 12-10-2022 Basophils/100 [...] 144.0 E9/L Low 150.0 - 500.0 E9/L [facility] HemeAutoSS RBC (Bld) [#/Vol] 4.8 E12/L Normal 4.3 - 5.9 E12/L [facility] HemeAutoSS WBC corrected for nucl RBC Auto (Bld) [#/Vol] 4.4 E9/L Normal 4.0 - 11.0 E9/L [facility] HemeAutoSS Comment on above: Result Comment: Slid e reviewed by Hep [facility] Panelon 12-10-2022 AST [Catalytic activity/Vol] 364 Int._Unit/L High 5-43 [facility] Comment on above: Performed By: #### 2 662304, 57489455, 10713837, 2598784, 6718548, 13451587, 93017926, 0390357, 9010887, 6770436 ####[facility] [address] [place] [address] Albumin [Mass/Vol] 4.2 g/dL Normal 3.3-5.0 [facility] Comment on above: Performed By: #### 2 299885, 29090072, 01651967, 1073914, 0572541, 10811970, 47800400, 2100187, 4119268, 0841233 ####[facility] [address] [place] [address] Albumin/Globulin (S) [Mass conc ratio] 0.9 Low 1.1-2.2 [facility] Comment on above: Performed By: #### 2 601383, 40757535, 03229232, 4048378, 2381044, 80439830, 53680917, 0899402, 8579507, 7049590 ####[facility] [address] [place] [address] ALP [Catalytic activity/Vol] 171 Int._Unit/L High 21-98 [facility] Comment on above: Performed By: #### 2 963222, 26544740, 02050984, 0283846, 6235933, 11772355, 54835131, 4573546, 3634950, 5230343 ####[facility] [address] [place] [address] ALT No additional P-5'-P [Catalytic activity/Vol] 192 Int._Unit/L High 6-46 [facility] Comment on above: Performed By: #### 2 058226, 58467136, 88191201, 9563079, 9855441, 49683571, 08476203, 6441618, 0427935, 2513932 ####[facility] [address] [place] [address] Bilirubin [Mass/Vol] 0.8 mg/dL Normal 0.0-1.1 [facility] Comment on above: Performed By: #### 2 406246, 11354138, 08266501, 8868203, 9313070, 73398066, 79204005, 6774574, 5488045, 4708304 ####[facility] [address] [place] [address] Bilirubin.direct [Mass/Vol] 0.3 mg/dL Normal 0.1-0.4 [facility] Comment on above: Performed By: #### 2 922832, 41787836, 57294114, 3211553, 8410793, 92855520, 34133287, 8399592, 7587681, 5496034 ####[place] [address] [place] [address] Bilirubin.indirect [Mass or moles/Vol] 0.5 mg/dL Normal 0.1-0.9 [facility] Comment on above: Performed By: #### 2 061702, 09207357, 89878790, 6735071, 6826513, 50478480, 40164754, 0222105, 0971733, 8851719 ####[address] [place] [address] Globulin (S) [Mass/Vol] 4.6 g/dL High 1.4-4.0 [facility] Comment on above: Performed By: #### 2 159517, 54652147, 91652467, 6069202, 6815118, 45061893, 49576835, 2566335, 5083745, 9990055 ####[facility] [address] [place] [address] Protein [Mass/Vol] 8.8 g/dL High 6.0-7.8 [facility] Comment on above: Performed By: #### 2 900025, 38836510, 23445413, 3079672, 8498397, 32981477, 62541461, 9011239, 8550491, 7484558 ####[facility] [address] [place] [address] Lipase Levelon 12-10-2022 Lipase [Catalytic activity/Vol] 46 U/L Normal 13-58 [facility] Comment on above: Performed By: #### 2 665741, 12936668, 72959073, 6466739, 5860354, 02820349, 63676985, 9072329, 2519330, 8766710 ####[facility] [address] [place] [address] Magnesiumon 12-10-2022 Magnesium [Mass/Vol] 1.9 mg/dL Normal 1.3-2.4 [facility] Comment on above: Performed By: #### 2 551293, 62890364, 05348733, 3630870, 0340094, 54533853, 83866532, 1809290, 0654902, 2384396 ####[facility] [address] [place] [address] Monitor Recordon 12-10-2022 Monitor Record [id number]#[id number] FF Normal [facility] PT & PTTon 12-10-2022 aPTT Coag (PPP) [Time] 42.2 second(s) High 25.1-36.5 [facility] Comment on above: Order Comment: Nurse is starting IV and pull labs 12/10/2022 08:12:05 EDT [id number] Result Comment: Para meter 15 days - [...] the same coagulation reagent and instrumentation as [facility]. Currently there are no coagulation studies available worldwide for children to 14 days, and no normal ranges. Heparin therapeutic range (represented by Anti-Factor Xa activity of 0.2 - 0.4 U/mL) corresponds to PTT of 56.6 - 109.0 sec. Performed By: #### 2 191136, 92426752, 57136873, 6587725, 0196398, 58802867, 44482251, 5141259, 4642153, 1259473 ####[facility] [address] [place] [address] INR Coag (PPP) [Relative time] 1.2 {INR} Invalid Interpretation Code [facility] Comment on above: Order Comment: Nurse is starting IV and pull labs 12/10/2022 08:12:05 EDT [id number] Result Comment: INR results are specifically intended to assess patients stabilized on long-term Anticoagulation therapy suggested INR?s ?Less Intensive Anticoagulation? 2.0 ? 3.0Conventional Range 3.0 ? 4.5 Performed By: #### 2 994085, 40162748, 02497284, 1011153, 2144328, 67691132, 30554619, 0431668, 8176331, 9125988 ####[facility] [address] [place] [address] PT Coag (PPP) [Time] 12.8 second(s) High 9.4-12.5 [facility] Comment on above: Order Comment: Nurse is starting IV and pull labs 12/10/2022 08:12:05 EDT [id number] Result Comment: 15 d ays - 4 [...] the same coagulation reagent and instrumentation as [facility]. Currently there are no coagulation studies available worldwide for children to 14 days, and no normal ranges. Performed By: #### 2 453902, 03160866, 93871484, 0992911, 6507117, 98776079, 47116345, 5827518, 9816527, 7790263 ####[facility] [address] [place] [address] SEROLOGYOrdered By: Annie Lorenzo on 12-10-2022 Beta hCG Ql Negative (12/10/22 8:23 AM) Normal [facility] Man Sero Troponin 0 Hr.on 12-10-2022 Troponin I.cardiac [Mass/Vol] 5.70 pg/mL Low 10.10-27.10 [facility] Comment on above: Result Comment: The 95% CI (Confidence Interval) PPV (Positive Predictive Value) for myocardial infarction in females is 38 pg/mL, in males 51 pg/mL. The results should be used in conjunction with clinical conditions of myocardial infarction.(Access High Sensitivity Troponin I Instructions For Use, [employer], September 2017) Performed By: #### 2 974774, 09505331, 38447614, 9289581, 9689756, 56824466, 26314653, 0312601, 9430799, 9613611 ####[facility] [address] [place] [address] Troponin 3 Hr.on 12-10-2022 Troponin I.cardiac [Mass/Vol] 6.00 pg/mL Low 10.10-27.10 [facility] Comment on above: Result Comment: The 95% CI (Confidence Interval) PPV (Positive Predictive Value) for myocardial infarction in females is 38 pg/mL, in males 51 pg/mL. The results should be used in conjunction with clinical conditions of myocardial infarction.(Access High Sensitivity Troponin I Instructions For Use, [employer], September 2017) Performed By: #### 1 1992350 ####[facility] [address] [place] [address] U Drug Screenon 12-10-2022 Benzodiazepines Ql (U) Positive Abnormal Negative [facility] Comment on above: Result Comment: No c onfirmation requested by Physican\Results verified by repeat analysis\Unconfirmed by alternate method\Critical Result UD_BENZ:POS Called to CHILO GODOY AT ER by PERICO GOULD And Read Back For Confirmation at: 12/10/2022 11:50:16Negative Cutoff: <200 ng/mL Performed By: #### 2 383150 ####[facility] [address] [place] [address] Amphetamines Screen method >1000 ng/mL Ql (U) Negative Normal Negative [facility] Comment on above: Result Comment: Nega tive Cutoff: <1000 ng/mL Performed By: #### 2 770255 ####[facility] [address] [place] [address] Barbiturates Screen Ql (U) Negative Normal Negative [facility] Comment on above: Result Comment: Nega tive Cutoff: <200 ng/mL Performed By: #### 2 243212 ####[facility] [address] [place] [address] Cocaine Ql (U) Negative Normal Negative [facility] Comment on above: Result Comment: Nega tive Cutoff: <300 ng/mL Performed By: #### 2 850019 ####[facility] [address] [place] [address] Opiates Screen Ql (U) Negative Normal Negative Fis [facility] Comment on above: Result Comment: Nega tive Cutoff: <300 ng/mL Performed By: #### 2 932778 ####[facility] [address] [place] [address] Phencyclidine Screen method >25 ng/mL Ql (U) Negative Normal Negative [facility] Comment on above: Result Comment: Nega tive Cutoff: <25 ng/mLThese drug screen results are to be used for medical (i.e., treatment) purposes only. Unconfirmed drug screening results must not be used for non-medical purposes (e.g., employment testing, legal testing). Performed By: #### 2 419350 ####[facility] [address] [place] [address] Tetrahydrocannabinol Screen method >50 ng/mL Ql (U) Negative Normal Negative [facility] Comment on above: Result Comment: Nega tive Cutoff: <50 ng/mL Performed By: #### 2 897011 ####[facility] [address] [place] [address] UA With Cult Reflexon 2022 Bilirubin Ql (U) 1+ Abnormal Negative [facility] Comment on above: Performed By: #### 1 4460153 ####[address] [address] Clarity (U) CLOUDY Abnormal Clear [facility] Comment on above: Performed By: #### 1 5535417 ####[address] [address] Color (U) DARK YELLO Abnormal Yellow [facility] Comment on above: Performed By: #### 1 4603057 ####[facility] [address] [place] [address] Crystals LM Ql (Urine sed) Present Normal [facility] Comment on above: Performed By: #### 1 7866678 ####[facility] [address] [place] [address] Epithelial cells.squamous LM.HPF (Urine sed) [#/Area] 9-10 Normal 0-2 [facility] Comment on above: Performed By: #### 1 3654794 ####[facility] [address] [place] [address] Glucose Test strip (U) [Mass/Vol] Negative Normal Negative [facility] Comment on above: Performed By: #### 1 5038747 ####[facility] [address] [place] [address] Hemoglobin Ql (U) 3+ Abnormal Negative [facility] Comment on above: Performed By: #### 1 4431260 ####[address] [address] Ketones (U) [Mass/Vol] TRACE Invalid Interpretation Code Negative [facility] Comment on above: Performed By: #### 1 3438880 ####[address] [address] [place].plasma/Lithiu m.RBC (Bld) [Mass ratio] 0-3 Normal 0-3 [facility] Comment on above: Performed By: #### 1 3478050 ####[address] [address] Nitrite Ql (U) Negative Normal Negative [facility] Comment on above: Performed By: #### 1 9129387 ####[address] [address] pH (U) 7.0 [pH] Invalid Interpretation Code 5.0-9.0 [facility] Comment on above: Performed By: #### 1 8634556 ####[address] [address] Protein (U) [Mass/Vol] 2+ Abnormal Negative [facility] Comment on above: Performed By: #### 1 6978515 ####[address] [address] Specific gravity (U) [Rel density] 1.015 Invalid Interpretation Code 1.005-1.030 [facility] Comment on above: Performed By: #### 1 6548538 ####[address] [address] Type of Urine collection method Clean Catch Normal [facility] Comment on above: Performed By: #### 1 7154832 ####[address] [address] Urobilinogen Qn (U) >=8.0 Abnormal 0.0-1.0 [facility] Comment on above: Performed By: #### 1 4724199 ####[address] [address] WBC Auto Ql (U) Negative Normal Negative [facility] Comment on above: Performed By: #### 1 0310944 ####[facility] [address] [place] [address] WBC LM.HPF (Urine sed) [#/Area] 0-5 Normal 0-5 [facility] Comment on above: Performed By: #### 1 2652467 ####[facility] [address] [place] [address] URINALYSISOrdered By: Zakiya Lorenzo on 12-10-2022 Bilirubin [...] Interpretation Code Negative [facility] UA Auto SS [place].plasma/Lithiu m.RBC (Bld) [Mass ratio] 0-3 /HPF Normal [...] AM) Invalid Interpretation Code 1.005 - 1.030 [facility] UA Auto SS UA Spec Desc Clean Catch (12/10/22 11:15 AM) Normal [facility] UA Auto SS Urobilinogen Qn (U) {Surinder'U}/dL Invalid Interpretation Code 0.0 - 1.0 EU/dL [facility] UA Auto SS WBC Auto Ql (U) Negative (12/10/22 11:15 AM) Normal Negative [facility] UA Auto SS WBC LM.HPF (Urine sed) [#/Area] 0-5 /HPF Normal 0-5/HPF [facility] UA Auto SS XR Chest Single Viewon 12-10 XR Chest Single View Normal [facility] eGFRon 12-10-2022 GFR/1.73 sq M.predicted among non-blacks MDRD (S/P/Bld) [Vol rate/Area] 124 mL/min/1.73 m2 Normal >=59 [facility] Comment on above: Order Comment: Order added by Discern Expert. Result Comment: Project Financial Analyst justin kidney disease could be indicated at eGFR's of less than 60 mL/min/1.73m2. Kidney failure is indicated at less than 15 mL/min/1.73m2. Performed By: #### 2 233134, 53875043, 90499841, 5123065, 6564930, 09862069, 94191045, 0633414, 3564251, 1507834 ####[facility] [address] [place] [address] Consenton 12-03-2022 Consent [id number] FF Normal [facility] C Urineon 12-02-2022 Bacteria identified Cx Nom (U) Normal [facility] Comment on above: Performed By: #### 2 130378 ####[facility] [address] [place] [address] Family Medicine Office/Clini c Noteon 11-30-2022 Family Medicine Office/Clinic Note Normal [facility] Comment on above: Result Comment: Elec tronically Signed By: ANA HARO, CARRIE\.ella\Date and Time Signed: 11/30/22 14:01 EDT Patient Educationon 12-01-19 Patient Education Normal [facility] DHEASon 11-20-2022 DHEA-S [Mass/Vol] 35.7 microgram/dL Low 84.8-378.0 [facility] Comment on above: Result Comment: Perf ormed at: [facility] [id number] [place], [place] [id number] PhD Sriram Arceo Performed By: #### 2 451834, 6711042, 011543570, 4554280, 394952122, 30986650, 13154314 ####[facility] [address] [place] [address] Estradiolon 11-20-2022 E2 [Mass/Vol] 85.0 pg/mL Invalid Interpretation Code [facility] Comment on above: Result Comment: Adul t Female:Follicular phase 12.5 - 166.0Ovulation phase 85.8 - 498.0Luteal phase 43.8 - 211.0Postmenopausal <6.0 - 54.7Vvzbrvhlb7dp trimester 215.0 - >4300.0Roche ECLIA methodologyPerformed at: [address] [place], [place] [id number] PhD Sriram Arceo Performed By: #### 2 912739, 5698974, 225012199, 6342133, 889662599, 66539650, 01707485 ####[facility] [address] [place] [address] FSHon 11-20-2022 Follitropin Qn 10.0 m[IU]/mL Invalid Interpretation Code [facility] Comment on above: Result Comment: Adul t Female:Follicular phase 3.5 - 12.5Ovulation phase 4.7 - 21.5Luteal phase 1.7 - 7.7Postmenopausal 25.8 - 134.8Performed at: [facility] [place], [place] [id number] PhD Sriram Arceo Performed By: #### 2 935305, 9020532, 752479312, 7168348, 010970103, 13267406, 48181974 ####[facility] [address] [place] [address] HIV Screen 4th Generation wR fxon 11-20-2022 HIV 1+2 Ab+HIV1 p24 Ag IA Ql Non-Reactive Invalid Interpretation Code Non Reactive [facility] Comment on above: Result Comment: HIV NegativeHIV-1/HIV-2 antibodies and HIV-1 p24 antigen were NOT detected.There is no laboratory evidence of HIV infection.Performed at: [facility] [address] [place], [place] [id number] PhD Sriram Arceo Performed By: #### 2 004302, 8254321, 566702933, 1136493, 144693316, 09665722, 68142854 ####[place] [place] [address] Hep Bs Agon 11-20-2022 HBV surface Ag IA Ql Negative Invalid Interpretation Code Negative [facility] Comment on above: Result Comment: Perf ormed at: [facility]ville[facility]wawel[address] [place], [place] [id number] PhD Sriram Arceo Performed By: #### 2 668935, 5036783, 191794623, 6459390, 877641334, 80746785, 50622607 ####[place] [place] [address] Testosterone F&Ton 3 Testosterone [Mass/Vol] 40 ng/dL Invalid Interpretation Code [facility] Comment on above: Performed By: #### 2 310707, 3387726, 017767558, 9602063, 216635247, 05107331, 92399384 ####[place] [place] [address] Testosterone Free [Mass/Vol] 0.8 pg/mL Invalid Interpretation Code 0.0-4.2 [facility] Comment on above: Result Comment: Perf ormed at: [employer] [address] [place], [place] [id number] PhD Sriram ArceoPerformed at: [facility] [place], [place] [id number] MD Dimitris Maher Performed By: #### 2 427562, 4789610, 903144779, 6599247, 301795352, 53487772, 28244858 ####[facility] [address] [place] [address] Thyroid Perox.tpo Abon 11-16 TPO Ab Qn 15 International_Unit/mL Invalid Interpretation Code 0-34 [facility] Comment on above: Result Comment: Perf ormed at: [facility] [place], [place] [id number] PhD Sriram Arceo Performed By: #### 3 2984682, 97338316, 47164092 ####[place] [place] [address] WRITTEN AUTHORIZATIONon Written Authorization Comment Invalid Interpretation Code [facility] Comment on above: Result Comment: Writ ten Authorization Received.Authorization received from ORIGINAL ORDER [id number] by Rodrick Vásquezformed at: [place] [place], [place] [id number] PhD Sriram Arceo Performed By: #### 3 5961077, 63223185, 29331300 ####[address] [address] CHEMISTRYOrdered By: SYSTEM SYSTEM on 11-14-2022 Amphetamines [...] <50 ng/mL Physician Orderon 11-14-2022 Physician Order [id number] :127 Normal [facility] RPR with Conf Rfxon 11-15-19 23 Reagin Ab RPR Ql (S) Non-Reactive Invalid Interpretation Code Non Reactive [facility] Comment on above: Result Comment: Perf ormed at: [facility] [address] [id number] PhD Sriram Arceo Performed By: #### 2 750114, 5472547, 780341589, 8322743, 539550388, 75887399, 13109531 ####[facility] [address] [place] [address] U Drug Screenon 11-14-2022 Amphetamines Screen method >1000 ng/mL Ql (U) Negative Normal Negative [facility] Comment on above: Result Comment: Nega tive Cutoff: <1000 ng/mL Performed By: #### 2 [id number] ####[facility] [address] [address] Barbiturates Screen Ql (U) Negative Normal Negative [facility] Comment on above: Result Comment: Nega tive Cutoff: <200 ng/mL Performed By: #### 2 [id number] ####[facility] [address] [place] [address] Benzodiazepines Ql (U) Negative Normal Negative [facility] Comment on above: Result Comment: Nega tive Cutoff: <200 ng/mL Performed By: #### 2 [id number] ####[facility] [address] AveNthe [place] [address] Cocaine Ql (U) Negative Normal Negative [facility] Comment on above: Result Comment: Nega tive Cutoff: <300 ng/mL Performed By: #### 2 [id number] ####[facility] [address]Nthe [place] [address] Opiates Screen Ql (U) Negative Normal Negative [facility] Comment on above: Result Comment: Nega tive Cutoff: <300 ng/mL Performed By: #### 2 829469 ####[facility] [address] [place] [address] Phencyclidine Screen method >25 ng/mL Ql (U) Negative Normal Negative [facility] Comment on above: Result Comment: Nega tive Cutoff: <25 ng/mLThese drug screen results are to be used for medical (i.e., treatment) purposes only. Unconfirmed drug screening results must not be used for non-medical purposes (e.g., employment testing, legal testing). Performed By: #### 2 064818 ####[facility] Wedcz[address] AveNthe [place] [address] Tetrahydrocannabinol Screen method >50 ng/mL Ql (U) Negative Normal Negative [facility] Comment on above: Result Comment: Nega tive Cutoff: <50 ng/mL Performed By: #### 2 055381 ####[facility] [address] [place] [address] CHEMISTRYOrdered By: SYSTEM SYSTEM on 11-13-2022 TSH Qn 1.86 m[IU]/L Normal 0.34 - 5.60 mcIU/mL [facility] Remisol Consent for Treatmenton Consent for Treatment [id number]#1.00CD: 127 Normal [facility] Consent for Treatment [id number]#1.00CD: 127 Normal [facility] Physician Orderon 11-13-2022 Physician Order [id number]#1.00CD :127 Normal [facility] Physician Order [id number]#1.00CD :127 Normal [facility] TSH With T4fr Reflexon 11-13 TSH Qn 1.86 m[IU]/L Normal 0.34-5.60 [facility] Comment on above: Performed By: #### 3 [id number], [id number], 81405046 ####[facility] [address] [place] [address] Consent for Treatmenton Consent for Treatment [id number]#1.00CD:1 27 Normal [facility] Discharge Instructionson Discharge Instructions [id number]#1.00CD: 127 Normal [facility] ED Clinical Summaryon 2022 ED Clinical Summary Normal [facility] ED Note-Physicianon 11-12-19 ED Note-Physician [facility] Comment on above: Result Comment: Elec tronically Signed By: Elliott Hicks PA-C.br\Date and Time Signed: 11/11/22 11:36 EDT\.br\Electronically Co-Signed By: Isai Hall DO\Date and Time Co-Signed: 11/11/22 13:15 EDT ED Patient Education Noteon 11-11-2022 ED Patient Education Note Normal [facility] ED Patient Summaryon 023 ED Patient Summary Normal [facility] Pre-Arrival Noteon 3 Pre-Arrival Note Normal [facility] Auto Diffon 11-04-2022 Basophils/100 WBC (Bld) 0.8 % Normal 0.0-2.0 [facility] Comment on above: Order Comment: Order Added by Discern Expert. Performed By: #### 1 [id number], 8184726, 3648267, 9771549 ####[facility] [address] [place] [address] Basophils/Leukocytes Auto (Bld) [Pure # fraction] 0.0 E9/L Normal 0.0-0.2 [facility] Comment on above: Order Comment: Order Added by Discern Expert. Performed By: #### 1 1514088, 2344988, 6061152, 5634402 ####[facility] [address] [place] [address] Eosinophils/100 WBC (Bld) 1.1 % Normal 0.0-8.0 [facility] Comment on above: Order Comment: Order Added by Discern Expert. Performed By: #### 1 6894979, 7877649, 4043873, 3560982 ####[facility] [address] [place] [address] Eosinophils/Leukocyte s Auto (Bld) [Pure # fraction] 0.0 E9/L Normal 0.0-0.5 [facility] Comment on above: Order Comment: Order Added by Discern Expert. Performed By: #### 1 2737890, 2428130, 5584402, 1161357 ####[facility] [address] [place] [address] Lymphocytes/100 WBC (Bld) 40.7 % Normal 14.0-50.0 [facility] Comment on above: Order Comment: Order Added by Discern Expert. Performed By: #### 1 9776674, 8010492, 7944845, 1599463 ####[facility] [address] [place] [address] Lymphocytes/Leukocyte s Auto (Bld) [Pure # fraction] 1.6 E9/L Normal 1.0-4.0 [facility] Comment on above: Order Comment: Order Added by Discern Expert. Performed By: #### 1 7049991, 2648621, 2576635, 2495336 ####[address] [place] [address] Monocytes/100 WBC (Bld) 6.9 % Normal 4.0-14.0 [facility] Comment on above: Order Comment: Order Added by Discern Expert. Performed By: #### 1 0090793, 6366695, 4535526, 2617948 ####[address] [address] Monocytes/Leukocytes Auto (Bld) [Pure # fraction] 0.3 E9/L Normal 0.2-1.0 [facility] Comment on above: Order Comment: Order Added by Radha Expert. Performed By: #### 1 6846062, 7885956, 0933730, 3460810 ####[address] [address] Neutrophils/100 WBC (Bld) 50.5 % Normal 36.0-75.0 [facility] Comment on above: Order Comment: Order Added by Radha Expert. Performed By: #### 1 7623960, 0646411, 4024918, 7208768 ####[address] [address] Neutrophils/Leukocyte s Auto (Bld) [Pure # fraction] 2.0 E9/L Normal 2.0-7.5 [facility] Comment on above: Order Comment: Order Added by Radha Expert. Performed By: #### 1 0940217, 1498767, 1216962, 5627186 ####[address] [address] BMPon 11-04-2022 Creatinine [Mass/Vol] 0.6 mg/dL Normal 0.5-1.3 [facility] Comment on above: Performed By: #### 1 8170590, 3020246, 9625336, 5769634 ####[facility] [address] [place] [place] [address] Urea nitrogen [Mass/Vol] 7 mg/dL Normal 5-21 [facility] Comment on above: Performed By: #### 1 0201337, 8790444, 7508854, 4311326 ####[facility] [address] [place] [address] Urea nitrogen/Creatinine [Mass ratio] 12 No Units Normal 10-20 [facility] Comment on above: Performed By: #### 1 1340197, 2236231, 5456934, 4221959 ####[facility] [address] [place] [address] Anion gap [Moles/Vol] 9 mmol/L Normal 6-16 [facility] Comment on above: Performed By: #### 1 8707933, 9048793, 7906465, 6423550 ####[facility] [address] [facility] [place] [address] Calcium [Mass/Vol] 9.0 mg/dL Normal 8.9-11.1 [facility] Comment on above: Performed By: #### 1 7920868, 2256399, 7253181, 8868298 ####[facility] [address] [place] [address] Chloride [Moles/Vol] 105 mmol/L Normal 101-111 [facility] Comment on above: Performed By: #### 1 7520022, 5971198, 1179952, 2802043 ####[facility] [address] [place] [place] [address] CO2 [Moles/Vol] 27 mmol/L Normal 21-31 [facility] Comment on above: Performed By: #### 1 8775486, 3572837, 7286243, 0444379 ####[facility] [address] [place] [address] Glucose [Mass/Vol] 115 mg/dL Normal 55-199 [facility] Comment on above: Result Comment: If t his glucose result represents a fasting glucose, interpretation should refer to the following reference range: 55-99 mg/dL Performed By: #### 1 1454898, 8208568, 6684375, 7954795 ####[facility] [address] [place] [address] Potassium [Moles/Vol] 4.3 mmol/L Normal 3.5-5.3 [facility] Comment on above: Performed By: #### 1 8369997, 6249767, 9987312, 4972467 ####[address] [place] [address] Sodium [Moles/Vol] 137 mmol/L Normal 135-145 [facility] Comment on above: Performed By: #### 1 5058603, 7001538, 3887684, 4877510 ####[address] [place] [address] CBC w/ Auto Diffon Erythrocyte distribution width (RBC) [Ratio] 14.4 % High 10.9-14.2 [facility] Comment on above: Performed By: #### 1 2787422, 0490045, 8539854, 9994019 ####[address] [place] [address] Hematocrit (Bld) [Volume fraction] 42.6 % Normal 34.0-46.0 [facility] Comment on above: Performed By: #### 1 8424053, 9863404, 3242782, 0154646 ####[address] [place] [address] Hemoglobin (Bld) [Mass/Vol] 14.4 g/dL Normal 12.0-16.0 [facility] Comment on above: Performed By: #### 1 3417846, 9136333, 8036024, 4858267 ####[address] [place] [address] MCH (RBC) [Entitic mass] 33.1 pg Normal 27.0-34.0 [facility] Comment on above: Performed By: #### 1 5533263, 1489603, 0182694, 0653539 ####[facility] [address] [place] [address] MCHC (RBC) [Mass/Vol] 33.8 g/dL Normal 31.4-36.0 [facility] Comment on above: Performed By: #### 1 5919586, 3809843, 0207231, 8356459 ####[address] [place] [address] MCV (RBC) [Entitic vol] 98.0 fL Normal 80.0-100.0 [facility] Comment on above: Performed By: #### 1 4279809, 0113993, 2934073, 4198230 ####[address] [place] [address] Platelet mean volume (Bld) [Entitic vol] 8.6 fL Normal 6.4-10.8 [facility] Comment on above: Performed By: #### 1 4072740, 7711824, 1126755, 9797792 ####[address] [address] Platelets (Bld) [#/Vol] 113.0 E9/L Low 150.0-500.0 [facility] Comment on above: Performed By: #### 1 5765497, 2670401, 1937784, 2772044 ####[address] [address] RBC (Bld) [#/Vol] 4.4 E12/L Normal 4.3-5.9 [facility] Comment on above: Performed By: #### 1 7426203, 5340153, 3080523, 8704948 ####[address] [place] [address] WBC corrected for nucl RBC Auto (Bld) [#/Vol] 4.0 E9/L Normal 4.0-11.0 [facility] Comment on above: Performed By: #### 1 6515863, 3337145, 0089003, 6867722 ####[address] [place] [address] CHEMISTRYOrdered By: SYSTEM SYSTEM on 11-04-2022 Anion gap [Moles/Vol] 9 mmol/L Normal 6 - 16 mEq/L [facility] Remisol Calcium [Mass/Vol] 9.0 mg/dL Normal 8.9 - 11. 1 mg/dL [facility] Remisol Chloride [Moles/Vol] 105 mmol/L Normal 101 - 1 11 mmol/L [facility] Remisol CO2 [Moles/Vol] 27 mmol/L Normal 21 - 31 mmol/L [facility] Remisol Creatinine [Mass/Vol] 0.6 mg/dL Normal 0.5 - 1.3 mg/dL [facility] Remisol GFR/1.73 sq M.predicted among non-blacks MDRD (S/P/Bld) [Vol rate/Area] 124 mL/min/1.73 m2 Normal >=59mL/min/1 .73 m2 [facility] Chem S Glucose [Mass/Vol] 115 mg/dL Normal 55 - 199 mg/dL [facility] Remisol Potassium [Moles/Vol] 4.3 mmol/L Normal 3.5 - 5.3 mmol/L [facility] Remisol Sodium [Moles/Vol] 137 mmol/L Normal 135 - 145 mmol/L [facility] Remisol Urea nitrogen [Mass/Vol] 7 mg/dL Normal 5 - 21 mg/dL [facility] Remisol Urea nitrogen/Creatinine [Mass ratio] 12 mg/mg Normal 10 - 20 [facility] Remisol Consent for Treatmenton 10-13 Consent for Treatment [id number]#1.00CD: 127 Normal [facility] Discharge Instructionson Discharge Instructions [id number]#1.00CD: 127 Normal [facility] ED Clinical Summaryon 2022 ED Clinical Summary Normal [facility] ED Note-Physicianon 11-05-19 ED Note-Physician Normal [facility] Comment on above: Result Comment: Elec tronically Signed By: Gladys Saini M.D..br\Date and Time Signed: 11/04/22 16:02 EDT ED Patient Education Noteon 11-04-2022 ED Patient Education Note Normal [facility] ED Patient Summaryon 023 ED Patient Summary Normal [facility] HEMATOLOGYOrdered By: SYSTEM SYSTEM on 11-04-2022 Basophils/100 [...] 33.8 g/dL Normal 31.4 - 36.0 gm/dL [facility] HemeAutoSS MCV (RBC) [Entitic vol] 98.0 fL Normal 80.0 - 100.0 fL [facility] HemeAutoSS Platelet mean volume (Bld) [Entitic vol] 8.6 fL Normal 6.4 - 10.8 fL [facility] HemeAutoSS Platelets (Bld) [#/Vol] 113.0 E9/L Low 150.0 - 500.0 E9/L [facility] HemeAutoSS RBC (Bld) [#/Vol] 4.4 E12/L Normal 4.3 - 5.9 E12/L [facility] HemeAutoSS WBC corrected for nucl RBC Auto (Bld) [#/Vol] 4.0 E9/L Normal 4.0 - 11.0 E9/L [facility] HemeAutoSS eGFRon 11-04-2022 GFR/1.73 sq M.predicted among non-blacks MDRD (S/P/Bld) [Vol rate/Area] 124 mL/min/1.73 m2 Normal >=59 [facility] Comment on above: Order Comment: Order added by Discern Expert. Result Comment: Project Financial Analyst justin kidney disease could be indicated at eGFR's of less than 60 mL/min/1.73m2. Kidney failure is indicated at less than 15 mL/min/1.73m2. Performed By: #### 1 0986014, 8395432, 3095267, 9018457 ####[facility] [address] [place] [address] Registrationon 10-08-2022 Registration [id number]#1.00CD :127 Normal [facility] Consenton 10-05-2022 Consent [id number]#1.00CD :127 Normal [facility] Insurance Correspondenceon 0 09-12-2022 Insurance Correspondence [id number]#1.00CD: 127 Normal [facility] Physician Referralon 023 Physician Referral [id number]#1.00CD: 127 Normal [facility] ED Note-Physicianon 09-11-19 ED Note-Physician [id number]#1.00CD: 127 Normal [facility] Alanine aminotransferase [En zymatic activity/volume] in Serum or PlasmaOrdered By: Declan Marina on 09-06-2022 ALT [Catalytic activity/Vol] 54 U/L High 7-52 [facility] Comment on above: Performed By: #### C MP, LIPASE, CBC #### [address] Albumin [Mass/volume] in Ser um or Plasma by Bromocresol green (BCG) dye binding methoOrdered By: Declan Marina on 09-06-2022 Albumin BCG dye [Mass/Vol] 4.2 g/dL 3.5-5.7 [facility] Alkaline phosphatase [Enzyma tic activity/volume] in Serum or PlasmaOrdered By: Declan Marina on 09-06-2022 ALP [Catalytic activity/Vol] 106 U/L High 34-104 [facility] Comment on above: Performed By: #### C MP, LIPASE, CBC #### [address] Amphetamine Screen Ql (U)Ord ered By: Declan Marina on 09-06-2022 Amphetamines Ql (U) Negative Negative [facility] Aspartate aminotransferase [ Enzymatic activity/volume] in Serum or PlasmaOrdered By: Declan Marina on 09-06-2022 AST [Catalytic activity/Vol] 80 U/L High 13-39 [facility] Comment on above: Performed By: #### C MP, LIPASE, CBC #### [address] Automated basophil %Ordered By: Declan Marina on 09-06-2022 Basophils/100 WBC (Bld) 0.7 % Normal . [facility] Comment on above: Performed By: #### E ODALIS, MG, CMP, CBC #### [facility] [address] [place] [address] Automated basophil countOrde red By: Declan Marina on 09-06-2022 Basophils (Bld) [#/Vol] 0.1 10*3/uL Normal 0.0-0.2 [facility] Comment on above: Result Comment: PERF ORMED BY: [place] [address] PATHOLOGIST [employer] MANAGER LEE CARDOSO M.D. Performed By: #### E ODALIS, MG, CMP, CBC #### [facility] [address] [place] [address] Automated blood monocyte cou ntOrdered By: Declan Marina on 09-06-2022 Monocytes (Bld) [#/Vol] 0.3 10*3/uL Normal 0.0-0.8 [facility] Comment on above: Performed By: #### E ODALIS, MG, CMP, CBC #### [facility] [address] [place] [address] Automated eosinophil %Ordere d By: Declan Marina on 09-06-2022 Eosinophils/100 WBC (Bld) 0.2 % Normal . [facility] Comment on above: Performed By: #### E ODALIS, MG, CMP, CBC #### [facility] [address] [place] [address] Automated eosinophil countOr dered By: Declan Marina on 09-06-2022 Eosinophils (Bld) [#/Vol] 0.0 10*3/uL Normal 0.0-0.45 [facility] Comment on above: Performed By: #### E ODALIS, MG, CMP, CBC #### [facility] [address] [place] [address] Automated erythrocytes count in urine sediment (number/area)Ordered By: Declan Marina on 09-06-2022 RBC Auto (Urine sed) [#/Area] None seen [HPF] 0-4 [facility] Automated leukocytes count i n urine sediment (number/area)Ordered By: Declan Marina on 09-06-2022 WBC Auto (Urine sed) [#/Area] 0-1 [HPF] 0-4 [facility] Automated monocyte %Ordered By: Declan Marina on 09-06-2022 Monocytes/100 WBC (Bld) 3.0 % Normal . [facility] Comment on above: Performed By: #### E ODALIS, MG, CMP, CBC #### [address] Automated neutrophil %Ordere d By: Declan Marina on 09-06-2022 Neutrophils/100 WBC (Bld) 80.0 % Normal . [facility] Comment on above: Performed By: #### E ODALIS, MG, CMP, CBC #### [address] Automated urine color determ inationOrdered By: Declan Marina on 09-06-2022 Color (U) Yellow Normal Yellow [facility] Comment on above: Order Comment: Name Collection Type:: Clean-Voided Midstream Performed By: #### C MP, LIPASE, CBC #### [address] Barbiturates [Presence] in U rine by Screen methodOrdered By: Declan Marina on 09-06-2022 Barbiturates Screen Ql (U) Negative Negative [facility] Benzodiazepines Screen Ql (U )Ordered By: Declan Marina on 09-06-2022 Benzodiazepines Ql (U) Negative Negative [facility] Benzoylecgonine [Presence] i n Urine by Screen methodOrdered By: Declan Marina on 09-06-2022 Benzoylecgonine Screen Ql (U) Negative Negative [facility] Bilirubin Test strip Ql (U)O rdered By: Declan Marina on 09-06-2022 Bilirubin Ql (U) Negative Negative [facility] Bilirubin.total [Mass/volume ] in Serum or PlasmaOrdered By: Declan Marina on 09-06-2022 Bilirubin [Mass/Vol] 0.6 mg/dL Normal 0.3-1.[address] [facility] Comment on above: Performed By: #### C MP, LIPASE, CBC #### [address] Calcium [Mass/volume] in Ser um or PlasmaOrdered By: Declan Marina on 09-06-2022 Calcium [Mass/Vol] 9.6 mg/dL Normal 8.6-10.3 [facility] Comment on above: Performed By: #### C MP, LIPASE, CBC #### [address] Cannabinoids [Presence] in U rine by Screen methodOrdered By: Declan Marina on 09-06-2022 Cannabinoids Screen Ql (U) Negative Negative [facility] Comment on above: These are unconfirme d results and should not be used for legal purposes. Drug Cut-Off Concentration: AMPH 1000 ng/mL JANELL 200 ng/mL JAMES 200 ng/mL COCM 300 ng/mL OP 300 ng/mL PCP 25 ng/mL THC 20 ng/mL Carbon dioxide, total [Moles /volume] in Serum or PlasmaOrdered By: Declan Marina on 09-06-2022 CO2 [Moles/Vol] 27.1 mmol/L Normal 21.0-31.0 [facility] Comment on above: Performed By: #### C MP, LIPASE, CBC #### [address] Chloride [Moles/volume] in S marbella or PlasmaOrdered By: Declan Marina on 09-06-2022 Chloride [Moles/Vol] 98 mmol/L Normal 98-[address] [facility] Comment on above: Performed By: #### C MP, LIPASE, CBC #### [address] Complete Blood Count Auto Di ffon 09-06-2022 Mean Corpuscular HGB Conc 34.1 g/dL Normal 32.0-35.0 [facility] Comment on above: Performed By: #### E ODALIS, MG, CMP, CBC #### [address] Monocytes/100 WBC (Bld) 15.56 % Normal 0.00-20.00 [facility] Comment on above: Performed By: #### E ODALIS, MG, CMP, CBC #### [address] NRBC% 0.1 /100{WBC} Normal 0-0.[address] [facility] Comment on above: Performed By: #### E ODALIS, MG, CMP, CBC #### [address] Comprehensive Metabolic Pane mary beth 09-06-2022 Albumin [Mass/Vol] 4.2 g/dL Normal 3.5-5.7 [facility] Comment on above: Performed By: #### C MP, LIPASE, CBC #### [address] Creatinine Clr Calc Pharmacy 149.26 Normal [facility] Comment on above: Performed By: #### C MP, LIPASE, CBC #### [address] GFR/1.73 sq M.predicted MDRD (S/P/Bld) [Vol rate/Area] mL/min/{1.73_m2} Normal [facility] Comment on above: Performed By: #### C MP, LIPASE, CBC #### [address] Creatinine [Mass/volume] in Serum or PlasmaOrdered By: Declan Marina on 09-06-2022 Creatinine [Mass/Vol] 0.51 mg/dL Low 0.60-1.20 [facility] Comment on above: Performed By: #### C MP, LIPASE, CBC #### [place] [address] [place] Dipstick and Microscopicon 0 09-06-2022 Appearance (U) Clear Normal Clear [facility] Comment on above: Order Comment: Name Collection Type:: Clean-Voided Midstream Performed By: #### C MP, LIPASE, CBC #### [place] [address] [place] Bacteria,Urine 1+ High None Seen [facility] Comment on above: Order Comment: Name Collection Type:: Clean-Voided Midstream Performed By: #### C MP, LIPASE, CBC #### [place] [address] [place] Bilirubin,Urine Negative Normal Negative [facility] Comment on above: Order Comment: Name Collection Type:: Clean-Voided Midstream Performed By: #### C MP, LIPASE, CBC #### [facility] [address] [place] [id number] [place] Glucose Ql (U) Normal Normal Normal [facility] Comment on above: Order Comment: Name Collection Type:: Clean-Voided Midstream Performed By: #### C MP, LIPASE, CBC #### [facility] [address] [place] [address] [place] Hyaline Casts,Urine 0-8 Normal 0-8 [facility] Comment on above: Order Comment: Name Collection Type:: Clean-Voided Midstream Result Comment: PERF ORMED BY: [place] [address] PATHOLOGIST [employer] MANA[employer] LEE CARDOSO M.D. Performed By: #### C MP, LIPASE, CBC #### [address] Ketones Ql (U) Negative Normal Negative [facility] Comment on above: Order Comment: Name Collection Type:: Clean-Voided Midstream Performed By: #### C MP, LIPASE, CBC #### [place] [address] [place] Leukocyte esterase Test strip Ql (U) 1+ High Negative [facility] Comment on above: Order Comment: Name Collection Type:: Clean-Voided Midstream Performed By: #### C MP, LIPASE, CBC #### [place] [address] [place] Nitrite,Urine Negative Normal Negative [facility] Comment on above: Order Comment: Name Collection Type:: Clean-Voided Midstream Performed By: #### C MP, LIPASE, CBC #### [place] [address] [place] Occult Blood,Urine 2+ High Negative [facility] Comment on above: Order Comment: Name Collection Type:: Clean-Voided Midstream Result Comment: PERF ORMED BY: [place] [address] PATHOLOGIST [employer] LEE CARDOSO M.D. Performed By: #### C MP, LIPASE, CBC #### [place] [address] Protein,Urine Trace High Negative [facility] Comment on above: Order Comment: Name Collection Type:: Clean-Voided Midstream Performed By: #### C MP, LIPASE, CBC #### [address] RBC,Urine None Seen Normal 0-4 [facility] Comment on above: Order Comment: Name Collection Type:: Clean-Voided Midstream Performed By: #### C MP, LIPASE, CBC #### [address] Specificy [place],Urine 1.012 Normal 1.001-1.030 [facility] Comment on above: Order Comment: Name Collection Type:: Clean-Voided Midstream Performed By: #### C MP, LIPASE, CBC #### [address] Squamous Epithelial Cell,Urine 3-4 High 0-2 [facility] Comment on above: Order Comment: Name Collection Type:: Clean-Voided Midstream Performed By: #### C MP, LIPASE, CBC #### [address] Urobilinogen,Urine Normal Normal Normal [facility] Comment on above: Order Comment: Name Collection Type:: Clean-Voided Midstream Performed By: #### C MP, LIPASE, CBC #### [address] WBC LM.HPF (Urine sed) [#/Area] 0 /[HPF] Normal 0-4 [facility] Comment on above: Order Comment: Name Collection Type:: Clean-Voided Midstream Performed By: #### C MP, LIPASE, CBC #### [place] [address] [place] Drug Screen,Urineon 09-07-19 23 Amphetamine Screen,Urine Negative Normal Negative [facility] Comment on above: Performed By: #### C MP, LIPASE, CBC #### [address] Barbiturate Screen,Urine Negative Normal Negative [facility] Comment on above: Performed By: #### C MP, LIPASE, CBC #### [address] Benzodiazepines Screen,Urine Negative Normal Negative [facility] Comment on above: Performed By: #### C MP, LIPASE, CBC #### [address] Cannabinoid Screen,Urine Negative Normal Negative [facility] Comment on above: Result Comment: Thes e are unconfirmed results and should not be used for legal purposes. Drug Cut-Off Concentration: AMPH 1000 ng/mL JANELL 200 ng/mL JAMES 200 ng/mL COCM 300 ng/mL OP 300 ng/mL PCP 25 ng/mL THC 20 ng/mL PERFORMED BY: [place] [address] PATHOLOGIST [employer] LEE CARDOSO M.D. Performed By: #### C MP, LIPASE, CBC #### [address] Cocaine Screen,Urine Negative Normal Negative [facility] Comment on above: Performed By: #### C MP, LIPASE, CBC #### [address] Opiate Screen,Urine Negative Normal Negative [facility] Comment on above: Performed By: #### C MP, LIPASE, CBC #### [address] Phencyclidine Screen,Urine Negative Normal Negative [facility] Comment on above: Performed By: #### C MP, LIPASE, CBC #### [address] Erythrocyte distribution wid th [Ratio] by Automated countOrdered By: Declan Marina on 09-06-2022 Erythrocyte distribution width (RBC) [Ratio] 14.2 % Normal 11.9-15.3 [facility] Comment on above: Performed By: #### E ODALIS, MG, CMP, CBC #### [address] Erythrocytes [#/volume] in B lood by Automated countOrdered By: Declan Marina on 09-06-2022 RBC (Bld) [#/Vol] 4.62 10*6/uL Normal 3.60-5.00 [facility] Comment on above: Performed By: #### E ODALIS, MG, CMP, CBC #### [facility] [address] Ethanol [Mass/volume] in Ser um or PlasmaOrdered By: Declan Marina on 09-06-2022 Ethanol [Mass/Vol] mg/dL Normal [facility] Comment on above: Performed By: #### C MP, LIPASE, CBC #### [facility] [address] Ethanol [Mass/Vol] TNP [facility] Comment on above: Test not performed Ethyl Alcohol Profileon 08-12 Percent Ethanol Not performed Normal [facility] Comment on above: Result Comment: PERF ORMED BY: [place] [address] PATHOLOGIST [employer] LEE CARDOSO M.D. Performed By: #### C MP, LIPASE, CBC #### [address] Glucose [Mass/volume] in Ser um or PlasmaOrdered By: Declan Marina on 09-06-2022 Glucose [Mass/Vol] 95 mg/dL Normal 70-100 [facility] Comment on above: ADA recommended refe rence rangeRandom Glucose Reference Range is dependent on time and content of last meal. Glucose of more than 200 mg/dL in a nonstressed, ambulatory subject supports the diagnosis of Diabetes Mellitus. Result Comment: [place] Glucose Reference Range is dependent on time and content of last meal. Glucose of more than 200 mg/dL in a nonstressed, ambulatory subject supports the diagnosis of Diabetes Mellitus. ADA recommended reference range Performed By: #### C MP, LIPASE, CBC #### [facility] [address] Hematocrit [Volume Fraction] of Blood by Automated countOrdered By: Declan Marina on 09-06-2022 Hematocrit (Bld) [Volume fraction] 43.2 % Normal 34.0-46.4 [facility] Comment on above: Performed By: #### E ODALIS, MG, CMP, CBC #### [facility] [address] [place] [address] Hemoglobin [Mass/volume] in BloodOrdered By: Declan Marina on 09-06-2022 Hemoglobin (Bld) [Mass/Vol] 14.7 g/dL Normal 11.8-15.4 [facility] Comment on above: Performed By: #### E ODALIS, MG, CMP, CBC #### [address] Ketones Auto test strip (U) [Mass/Vol]Ordered By: Declan Marina on 09-06-2022 Ketones (U) [Mass/Vol] Negative Negative [facility] Laboratory - UrinalysisOrder ed By: Declan Marina on 09-06-2022 Hyaline casts LM Ql (Urine sed) 0-8 [LPF] 0-8 [facility] Leukocytes [#/volume] correc jose for nucleated erythrocytes in Blood by Automated counOrdered By: Declan Marina on 09-06-2022 WBC corrected for nucl RBC Auto (Bld) [#/Vol] 9.5 10*3/uL 3.8-11.6 [facility] Leukocytes [#/volume] in Blo od by Automated countOrdered By: Delcan Marina on 09-06-2022 WBC (Bld) [#/Vol] 9.5 10*3/uL Normal 3.8-11.6 [facility] Comment on above: Performed By: #### E ODALIS, MG, CMP, CBC #### [facility] [address] [place] [address] Lymphocytes [#/volume] in Bl ood by Automated countOrdered By: Declan Marina on 09-06-2022 Lymphocytes (Bld) [#/Vol] 1.5 10*3/uL Normal 1.00-4.8 [facility] Comment on above: Performed By: #### E ODALIS, MG, CMP, CBC #### [facility] [address] [place] [address] [place] Lymphocytes/100 leukocytes i n Blood by Automated countOrdered By: Declan Marina on 09-06-2022 Lymphocytes/100 WBC (Bld) 16.1 % Normal . [facility] Comment on above: Performed By: #### E ODALIS, MG, CMP, CBC #### [facility] [address] [place] [address] [place] MCH [Entitic mass] by Automa jose countOrdered By: Declan Marina on 09-06-2022 MCH (RBC) [Entitic mass] 31.9 pg Normal 24.7-34.3 [facility] Comment on above: Performed By: #### E ODALIS, MG, CMP, CBC #### [facility] [address] [place] [address] MCHC Auto (RBC) [Mass/Vol]Or dered By: Declan Marina on 09-06-2022 MCHC (RBC) [Mass/Vol] 34.1 g/dL 32.0-35.0 [facility] MCV [Entitic volume] by Auto mated countOrdered By: Declan Marina on 09-06-2022 MCV (RBC) [Entitic vol] 93.6 fL Normal 80-100 [facility] Comment on above: Performed By: #### E ODALIS, MG, CMP, CBC #### [facility] [address] [place] [address] Magnesium [Mass/volume] in S marbella or PlasmaOrdered By: Declan Marina on 09-06-2022 Magnesium [Mass/Vol] 1.3 mg/dL Low 1.9-2.[address] [facility] Comment on above: Result Comment: PERF ORMED BY: [place] [address] PATHOLOGIST [employer] LEE CARDOSO M.D. Performed By: #### C MP, LIPASE, CBC #### [facility] [address] [place] [address] Monocyte distribution width [Entitic volume] in Blood by AutomatedOrdered By: Declan Marina on 09-06-2022 Monocyte distribution width Auto (Bld) [Entitic vol] 15.56 % 0.00-20.00 [facility] Neutrophils [#/volume] in Bl ood by Automated countOrdered By: Declan Marina on 09-06-2022 Neutrophils (Bld) [#/Vol] 7.6 10*3/uL Normal 1.8-7.7 [facility] Comment on above: Performed By: #### E ODALIS, MG, CMP, CBC #### [facility] [address] Nitrite Test strip Ql (U)Ord ered By: Declan Marina on 09-06-2022 Nitrite Ql (U) Negative Negative [facility] No Panel InformationOrdered By: Declan Marina on 09-06-2022 Estimated GFR (CKD-EPI) > 60.0 mL/Min [facility] Creatinine Clearance (Chem 149.26 [facility] Nucleated erythrocytes [Pres ence] in Blood by Automated countOrdered By: Declan Marina on 09-06-2022 Nucleated RBC Auto Ql (Bld) 0.1 /100{WBC} 0-0.5 [facility] Opiates [Presence] in Urine by Screen methodOrdered By: Declan Marina on 09-06-2022 Opiates Screen Ql (U) Negative Negative [facility] Phencyclidine Screen Ql (U)O rdered By: Declan Marina on 09-06-2022 Phencyclidine Ql (U) Negative Negative [facility] Platelet mean volume [Entiti c volume] in Blood by Automated countOrdered By: Declan Marina on 09-06-2022 Platelet mean volume (Bld) [Entitic vol] 7.7 fL Normal 6.3-10.7 [facility] Comment on above: Performed By: #### E ODALIS, MG, CMP, CBC #### [facility] [address] [place] [address] [place] Platelets [#/volume] in Bloo d by Automated countOrdered By: Declan Marina on 09-06-2022 Platelets (Bld) [#/Vol] 230 10*3/uL Normal 150-450 [facility] Comment on above: Performed By: #### E ODALIS, MG, CMP, CBC #### [facility] [address] [place] [address] [place] Potassium [Moles/volume] in Serum or PlasmaOrdered By: Declan Marina on 09-06-2022 Potassium [Moles/Vol] 4.1 mmol/L Normal 3.5-5.1 [facility] Comment on above: Performed By: #### C MP, LIPASE, CBC #### [address] Protein Auto test strip (U) [Mass/Vol]Ordered By: Declan Marina on 09-06-2022 Protein (U) [Mass/Vol] Trace mg/dL Negative [facility] Protein [Mass/volume] in Ser um or PlasmaOrdered By: Declan Marina on 09-06-2022 Protein [Mass/Vol] 8.1 g/dL Normal 6.4-8.9 [facility] Comment on above: Performed By: #### C MP, LIPASE, CBC #### [address] Serum globulin measurement b y calculation (mass/volume)Ordered By: Declan Marina on 09-06-2022 Globulin (S) [Mass/Vol] 3.9 g/dL [facility] Comment on above: Performed By: #### C MP, LIPASE, CBC #### [facility] [address] [place] [address] Serum or plasma albumin/glob ulin mass ratioOrdered By: Declan Marina on 09-06-2022 Albumin/Globulin [Mass ratio] 1.1 {ratio} [facility] Comment on above: Performed By: #### C MP, LIPASE, CBC #### [address] Serum or plasma anion gap de terminationOrdered By: Declan Marina on 09-06-2022 Anion gap [Moles/Vol] 12.0 mmol/L Normal 6.0-15.[address] [facility] Comment on above: Performed By: #### C MP, LIPASE, CBC #### [address] Sodium [Moles/volume] in Ser um or PlasmaOrdered By: Declan Marina on 09-06-2022 Sodium [Moles/Vol] 133 mmol/L Low 136-145 [facility] Comment on above: Performed By: #### C MP, LIPASE, CBC #### [facility] [address] [place] [address] [place] Specific gravity Auto test s trip (U) [Rel density]Ordered By: Declan Marina on 09-06-2022 Specific gravity (U) [Rel density] 1.012 1.001-1.030 [facility] Squamous epithelial cells de tection in urine sediment by light microscopyOrdered By: Declan Marina on 09-06-2022 Epithelial cells.squamous LM Ql (Urine sed) 3-4 [HPF] 0-2 [facility] Urea nitrogen [Mass/volume] in Serum or PlasmaOrdered By: Declan Marina on 09-06-2022 Urea nitrogen [Mass/Vol] 8 mg/dL Normal 7-25 [facility] Comment on above: Performed By: #### C MP, LIPASE, CBC #### [facility] [address] Urine bacteria detection by automated methodOrdered By: Declan Marina on 09-06-2022 Bacteria Auto Ql (U) 1+ None Seen [facility] Urine clarity by refractomet ry automatedOrdered By: Declan Marina on 09-06-2022 Clarity Refractometry automated (U) Clear Clear [facility] Urine glucose measurement by automated test strip (mass/volume)Ordered By: Declan Marina on 09-06-2022 Glucose Auto test strip (U) [Mass/Vol] Normal mg/dL Normal [facility] Urine hemoglobin detection b y automated test stripOrdered By: Declan Marina on 09-06-2022 Hemoglobin Auto test strip Ql (U) 2+ Negative [facility] Urine leukocyte esterase det ection by automated test stripOrdered By: Declan Marina on 09-06-2022 Leukocyte esterase Auto test strip Ql (U) 1+ Negative [facility] Urine pH measurement by auto mated test stripOrdered By: Declan Marina on 09-06-2022 pH (U) 8.5 [pH] Normal 5.0-9.0 [facility] Comment on above: Order Comment: Name Collection Type:: Clean-Voided Midstream Performed By: #### C MP, LIPASE, CBC #### [place] [id number] [facility] Urobilinogen Auto test strip (U) [Mass/Vol]Ordered By: Declan Marina on 09-06-2022 Urobilinogen (U) [Mass/Vol] Normal mg/dL Normal [facility] Provider Letteron 09-04-2022 Provider Letter Normal [facility] Ambulatory Visit Summaryon 0 08-28-2022 Ambulatory Visit Summary Normal [facility] Family Medicine Office/Clini c Noteon 08-28-2022 Family Medicine Office/Clinic Note Normal [facility] Comment on above: Result Comment: Elec tronically Signed By: Lorie Morocho MD\.br\Date and Time Signed: 08/28/22 10:20 EDT Discharge Instructionson Discharge Instructions [id number]#[id number]: 127 Normal [facility] Discharge Note-Nursingon Discharge Note-Nursing Normal [facility] Patient Education - Texton 0 08-18-2022 Patient Education - Text Normal [facility] Progress Note-Physicianon Progress Note-Physician [facility] Comment on above: Result Comment: Elec tronically Signed By: Luciana Qureshi RN\.br\Date and Time Signed: 08/18/22 09:11 EDT\.br\Electronically Co-Signed By: Jonathan Patel DO\.br\Date and Time Co-Signed: 08/18/22 09:41 EDT Valuables Checkliston 2022 Valuables Checklist [id number]#[id number] :127 Normal [facility] Acetamnphn Lvlon 08-17-2022 Acetaminophen [Mass/Vol] ug/mL Low 15-30 [facility] Comment on above: Performed By: #### 1 4786093, 0235739, 5940066, 6784404, 7751239, 92777428, 8331225, 3713190, 79739465, 2635446 ####[facility] [address] [place] [address] Ammoniaon 08-17-2022 Ammonia (P) [Moles/Vol] [address] Comment on above: Performed By: #### 2 229449, 0690289, 7551058, 00901438, 4460306, 2698163, 64027380, 98542757 ####[facility] [address] [place] [address] Ammonia (P) [Moles/Vol] [address] Comment on above: Performed By: #### 1 3460057, 9551653, 6764217, 1830876, 0850696, 95500439, 2737519, 2480350, 22660427, 5817512 ####[facility] [address] [place] [address] Auto Diffon 08-17-2022 Basophils/100 WBC (Bld) 0.3 % Normal 0.0-2.0 [facility] Comment on above: Order Comment: Order Added by Discern Expert. Performed By: #### 2 511288, 8408221, 7237774, 23501099, 8232456, 1505196, 01743960, 38323733 ####[facility] [address] [place] [address] Basophils/Leukocytes Auto (Bld) [Pure # fraction] 0.0 E9/L Normal 0.0-0.2 [facility] Comment on above: Order Comment: Order Added by Discern Expert. Performed By: #### 2 528286, 3653919, 9015551, 83337139, 6114944, 5981729, 03484812, 17226319 ####[facility] [address] [place] [address] Eosinophils/100 WBC (Bld) 0.4 % Normal 0.0-8.0 [facility] Comment on above: Order Comment: Order Added by Discern Expert. Performed By: #### 2 992252, 8230283, 5693472, 26659369, 2036590, 3270182, 47060416, 94590819 ####[place] [address] [place] [address] Eosinophils/Leukocyte s Auto (Bld) [Pure # fraction] 0.0 E9/L Normal 0.0-0.5 [facility] Comment on above: Order Comment: Order Added by Discern Expert. Performed By: #### 2 980118, 6331670, 6655268, 59087742, 0173347, 3122039, 43097407, 96912948 ####[address] [place] [address] Lymphocytes/100 WBC (Bld) 33.9 % Normal 14.0-50.0 [facility] Comment on above: Order Comment: Order Added by Discern Expert. Performed By: #### 2 486652, 6369055, 8215950, 93730020, 6765714, 9905545, 13458465, 87556295 ####[address] [address] Lymphocytes/Leukocyte s Auto (Bld) [Pure # fraction] 2.3 E9/L Normal 1.0-4.0 [facility] Comment on above: Order Comment: Order Added by Discern Expert. Performed By: #### 2 058470, 1767555, 9939110, 73165969, 9969013, 7346716, 96190048, 87340874 ####[address] [address] Monocytes/100 WBC (Bld) 7.0 % Normal 4.0-14.0 [facility] Comment on above: Order Comment: Order Added by Discern Expert. Performed By: #### 2 572303, 1210992, 0593594, 11231518, 7373246, 7112628, 71849007, 93673628 ####[place] [address] [place] [address] Monocytes/Leukocytes Auto (Bld) [Pure # fraction] 0.5 E9/L Normal 0.2-1.0 [facility] Comment on above: Order Comment: Order Added by Discern Expert. Performed By: #### 2 388465, 2459675, 3785619, 62676538, 2558228, 1257545, 30012290, 92194166 ####[address] [place] [address] Neutrophils/100 WBC (Bld) 58.4 % Normal 36.0-75.0 [facility] Comment on above: Order Comment: Order Added by Discern Expert. Performed By: #### 2 538634, 7397874, 9644295, 67286860, 1469466, 4136766, 41726083, 99766112 ####[address] [place] [address] Neutrophils/Leukocyte s Auto (Bld) [Pure # fraction] 4.0 E9/L Normal 2.0-7.5 [facility] Comment on above: Order Comment: Order Added by Discern Expert. Performed By: #### 2 598002, 0833214, 2726419, 50845607, 3802927, 4959116, 14211619, 66904187 ####[address] [place] [address] Basophils/100 WBC (Bld) 0.9 % Normal 0.0-2.0 [facility] Comment on above: Order Comment: Order Added by Discern Expert. Performed By: #### 1 6490146, 0544229, 1588515, 3486066, 1033834, 35661600, 2670263, 7749016, 48473649, 6049786 ####[address] [place] [address] Basophils/Leukocytes Auto (Bld) [Pure # fraction] 0.1 E9/L Normal 0.0-0.2 [facility] Comment on above: Order Comment: Order Added by Discern Expert. Performed By: #### 1 8060982, 8135971, 5549943, 3146744, 0511552, 24406507, 3084898, 3257321, 78588864, 4841111 ####[address] [place] [address] Eosinophils/100 WBC (Bld) 1.1 % Normal 0.0-8.0 [facility] Comment on above: Order Comment: Order Added by Discern Expert. Performed By: #### 1 5381503, 7749180, 5838301, 4486023, 3345038, 17975947, 4212317, 1120537, 54011974, 9418533 ####[facility] [address] [place] [address] Eosinophils/Leukocyte s Auto (Bld) [Pure # fraction] 0.1 E9/L Normal 0.0-0.5 [facility] Comment on above: Order Comment: Order Added by Discern Expert. Performed By: #### 1 0269719, 7815350, 9707193, 5823894, 3912704, 42286869, 2694375, 3701112, 69964151, 9931622 ####[address] [place] [address] Lymphocytes/100 WBC (Bld) 41.5 % Normal 14.0-50.0 [facility] Comment on above: Order Comment: Order Added by Discern Expert. Performed By: #### 1 9396236, 3330951, 2526641, 0245218, 7655273, 52495536, 1507676, 0057570, 38119340, 0661725 ####[address] [place] [address] Lymphocytes/Leukocyte s Auto (Bld) [Pure # fraction] 5.2 E9/L High 1.0-4.0 [facility] Comment on above: Order Comment: Order Added by Discern Expert. Performed By: #### 1 2895029, 9646417, 4519379, 9430764, 9619835, 69260444, 6483535, 5642433, 52693626, 8755686 ####[address] [place] [address] Monocytes/100 WBC (Bld) 10.0 % Normal 4.0-14.0 [facility] Comment on above: Order Comment: Order Added by Discern Expert. Performed By: #### 1 3082383, 8152688, 6160991, 9766136, 0690427, 05411172, 6421797, 9534585, 15093418, 6318735 ####[facility] [address] [place] [address] Monocytes/Leukocytes Auto (Bld) [Pure # fraction] 1.3 E9/L High 0.2-1.0 [facility] Comment on above: Order Comment: Order Added by Discern Expert. Performed By: #### 1 1488199, 0929259, 9990916, 1858629, 5305026, 98264897, 4501190, 0487721, 14667625, 8537949 ####[address] [place] [address] Neutrophils/100 WBC (Bld) 46.5 % Normal 36.0-75.0 [facility] Comment on above: Order Comment: Order Added by Discern Expert. Performed By: #### 1 4301605, 1312235, 6974780, 4374195, 0781666, 96293388, 4393017, 4884102, 69311076, 5427248 ####[address] [place] [address] Neutrophils/Leukocyte s Auto (Bld) [Pure # fraction] 5.8 E9/L Normal 2.0-7.5 [facility] Comment on above: Order Comment: Order Added by Discern Expert. Performed By: #### 1 2273968, 5594251, 5161006, 1929721, 1911279, 75644210, 9884770, 6909761, 95855858, 0650598 ####[facility] [address] [place] [address] B hCG Qualon 08-17-2022 Beta hCG Ql Negative Normal [facility] Comment on above: Performed By: #### 1 8457421, 8840919, 1646759, 1983850, 7504430, 54494770, 0207839, 9462167, 27853572, 3838084 ####[address] [place] [address] BMPon 07-07-2023 Anion gap [Moles/Vol] 12 mmol/L Normal 6-16 [facility] Comment on above: Performed By: #### 2 083377, 9372247, 8880633, 02249055, 4192934, 1681031, 20056564, 53532066 ####[facility] [address] [place] [address] Calcium [Mass/Vol] 8.6 mg/dL Low 8.9-11.1 [facility] Comment on above: Performed By: #### 2 930142, 2344022, 5344927, 00939249, 0759674, 2932184, 34567491, 02208480 ####[facility] [address] [place] [address] Chloride [Moles/Vol] 106 mmol/L Normal 101-111 [facility] Comment on above: Performed By: #### 2 681651, 4432011, 8183348, 24509478, 5983816, 6062221, 09255312, 39560347 ####[facility] [address] [place] [address] CO2 [Moles/Vol] 22 mmol/L Normal 21-31 [facility] Comment on above: Performed By: #### 2 728812, 7921466, 3160202, 89188277, 2590367, 8706956, 65064719, 97668334 ####[facility] [address] [place] [address] Creatinine [Mass/Vol] 0.7 mg/dL Normal 0.5-1.3 [facility] Comment on above: Performed By: #### 2 342246, 7182484, 7469565, 61749876, 9390648, 8246734, 42780368, 72500998 ####[facility] [address] [place] [address] Glucose [Mass/Vol] 90 mg/dL Normal 55-199 [facility] Comment on above: Result Comment: If t his glucose result represents a fasting glucose, interpretation should refer to the following reference range: 55-99 mg/dL Performed By: #### 2 277861, 9333691, 3076107, 00782407, 8727325, 9611715, 15515513, 40945190 ####[facility] [address] [place] [address] Potassium [Moles/Vol] 4.2 mmol/L Normal 3.5-5.3 [facility] Comment on above: Performed By: #### 2 690725, 7404418, 2840982, 11647456, 8579775, 6098840, 17295556, 44793352 ####[facility] [address] [place] [address] Sodium [Moles/Vol] 136 mmol/L Normal 135-145 [facility] Comment on above: Performed By: #### 2 552976, 6496749, 2339995, 93014167, 5111278, 7047608, 22461315, 02530727 ####[facility] [address] [place] [address] Urea nitrogen [Mass/Vol] 18 mg/dL Normal 5-21 [facility] Comment on above: Performed By: #### 2 828020, 1373000, 3287633, 71169804, 3852061, 6770386, 81982995, 68319070 ####[facility] [address] [place] [address] Urea nitrogen/Creatinine [Mass ratio] 26 No Units High 10-20 [facility] Comment on above: Performed By: #### 2 272980, 3663103, 8622659, 64160813, 5852914, 7459726, 92719404, 09941458 ####[facility] [address] [place] [address] Creatinine [Mass/Vol] 1.1 mg/dL Normal 0.5-1.3 [facility] Comment on above: Performed By: #### 1 1012857, 8424987, 0174438, 3628486, 5016099, 12406271, 7364851, 2829679, 70973164, 4174923 ####[facility] [address] [place] [address] Urea nitrogen [Mass/Vol] 27 mg/dL High 5-21 [facility] Comment on above: Performed By: #### 1 5102518, 8629575, 9737848, 3621140, 5339605, 02064799, 7747022, 7872934, 66577768, 9269427 ####[facility] [address] [place] [address] Urea nitrogen/Creatinine [Mass ratio] 24 No Units High 10-20 [facility] Comment on above: Performed By: #### 1 0252619, 4972642, 3355713, 3316495, 3729712, 98392901, 1889153, 5102501, 30457005, 5381113 ####[facility] [address] [place] [address] Anion gap [Moles/Vol] 15 mmol/L Normal 6-16 [facility] Comment on above: Performed By: #### 1 3172413, 3694448, 7747470, 7156112, 5875434, 28497409, 7174284, 2184452, 66910744, 3812287 ####[facility] [address] [place] [address] Calcium [Mass/Vol] 9.2 mg/dL Normal 8.9-11.1 [facility] Comment on above: Performed By: #### 1 2272027, 3691414, 7225644, 8456477, 0894795, 61441983, 2139222, 1578653, 98961408, 9304149 ####[facility] [address] [place] [address] Chloride [Moles/Vol] 103 mmol/L Normal 101-111 [facility] Comment on above: Performed By: #### 1 5473674, 7875288, 6499193, 9948141, 6426532, 67330996, 6139038, 1857402, 62603345, 4451300 ####[facility] [address] [place] [address] CO2 [Moles/Vol] 22 mmol/L Normal 21-31 [facility] Comment on above: Performed By: #### 1 3296286, 1686695, 2592348, 1087346, 1825096, 72047477, 7540931, 1909163, 78195981, 7019220 ####[facility] [address] [place] [address] Glucose [Mass/Vol] 64 mg/dL Normal 55-199 [facility] Comment on above: Result Comment: If t his glucose result represents a fasting glucose, interpretation should refer to the following reference range: 55-99 mg/dL Performed By: #### 1 4512099, 7838831, 7873417, 6030936, 0701220, 41425867, 0192389, 2464302, 52097282, 2478288 ####[facility] [address] [place] [address] Potassium [Moles/Vol] 3.7 mmol/L Normal 3.5-5.3 [facility] Comment on above: Performed By: #### 1 6884590, 5541799, 8947322, 3680440, 8245903, 81923424, 6964139, 4649717, 22423115, 1460416 ####[facility] [address] [place] [address] Sodium [Moles/Vol] 136 mmol/L Normal 135-145 [facility] Comment on above: Performed By: #### 1 3060759, 0999085, 0070560, 4254754, 8453609, 24220283, 7809344, 9143619, 32878056, 2334575 ####[facility] [address] [place] [address] CBC w/ Auto Diffon 3 Erythrocyte distribution width (RBC) [Ratio] 14.0 % Normal 10.9-14.2 [facility] Comment on above: Performed By: #### 2 824016, 4812088, 7456227, 55619718, 4870720, 1957598, 20344816, 89223480 ####[facility] [address] [place] [address] Hematocrit (Bld) [Volume fraction] 39.1 % Normal 34.0-46.0 [facility] Comment on above: Performed By: #### 2 873552, 4166300, 7078740, 29969571, 5379005, 5631956, 42044187, 96715677 ####[address] [place] [address] Hemoglobin (Bld) [Mass/Vol] 13.3 g/dL Normal 12.0-16.0 [facility] Comment on above: Performed By: #### 2 028583, 2292316, 0750398, 10429793, 2615351, 5892947, 36311276, 69027272 ####[address] [address] MCH (RBC) [Entitic mass] 31.4 pg Normal 27.0-34.0 [facility] Comment on above: Performed By: #### 2 245672, 6437451, 8600415, 47572877, 6343402, 7567230, 36434178, 85173335 ####[address] [address] MCHC (RBC) [Mass/Vol] 34.2 g/dL Normal 31.4-36.0 [facility] Comment on above: Performed By: #### 2 635785, 4284763, 9506833, 09495503, 2976235, 8310855, 01808236, 18017978 ####[facility] [address] [place] [address] MCV (RBC) [Entitic vol] 91.9 fL Normal 80.0-100.0 [facility] Comment on above: Performed By: #### 2 125259, 6277863, 3761901, 58899189, 9022296, 9022425, 34383731, 63549530 ####[address] [address] Platelet mean volume (Bld) [Entitic vol] 8.2 fL Normal 6.4-10.8 [facility] Comment on above: Performed By: #### 2 667030, 0938194, 0922535, 04352089, 6212687, 6360713, 99942577, 52411987 ####[address] [place] [address] Platelets (Bld) [#/Vol] 181.0 E9/L Normal 150.0-500.0 [facility] Comment on above: Performed By: #### 2 424232, 6388771, 2263949, 66075817, 3747504, 8201213, 97935475, 18158337 ####[place] [address] RBC (Bld) [#/Vol] 4.2 E12/L Low 4.3-5.9 [facility] Comment on above: Performed By: #### 2 606382, 2008082, 4483056, 99968773, 8508729, 1589262, 91264479, 82191940 ####[place] [address] WBC corrected for nucl RBC Auto (Bld) [#/Vol] 6.9 E9/L Normal 4.0-11.0 [facility] Comment on above: Performed By: #### 2 129472, 5666933, 8305274, 72733231, 4705654, 7909467, 93878682, 88615502 ####[address] [place] [address] Erythrocyte distribution width (RBC) [Ratio] 13.6 % Normal 10.9-14.2 [facility] Comment on above: Performed By: #### 1 7263570, 0409688, 9306354, 8110376, 0899133, 16830575, 3041552, 5623006, 52807056, 2934356 ####[address] [place] 9[address]057 Hematocrit (Bld) [Volume fraction] 39.8 % Normal 34.0-46.0 [facility] Comment on above: Performed By: #### 1 5698807, 5457648, 1880611, 8310659, 0471638, 14882848, 5555730, 2245944, 77519825, 0130419 ####[facility] [address] [place] [address] Hemoglobin (Bld) [Mass/Vol] 13.6 g/dL Normal 12.0-16.0 [facility] Comment on above: Performed By: #### 1 1652827, 6248272, 9162202, 3298490, 2281003, 49636016, 4996746, 5589525, 88583043, 1708116 ####[address] [place] [address] MCH (RBC) [Entitic mass] 31.5 pg Normal 27.0-34.0 [facility] Comment on above: Performed By: #### 1 6512554, 0733081, 1831470, 7290829, 3609963, 98381171, 6078446, 7778284, 23521270, 1801540 ####[facility] [address] [place] [address] MCHC (RBC) [Mass/Vol] 34.1 g/dL Normal 31.4-36.0 [facility] Comment on above: Performed By: #### 1 3298575, 7509512, 5400410, 2634028, 1988254, 68508622, 5393166, 7959565, 04926726, 1058819 ####[facility] [address] [place] [address] MCV (RBC) [Entitic vol] 92.3 fL Normal 80.0-100.0 [facility] Comment on above: Performed By: #### 1 9971216, 0091964, 4733254, 5419448, 8886147, 89384217, 1418813, 9496582, 08530447, 7825532 ####[address] [place] [address] Platelet mean volume (Bld) [Entitic vol] 8.7 fL Normal 6.4-10.8 [facility] Comment on above: Performed By: #### 1 6534422, 4430031, 1268791, 9876241, 7782377, 03508068, 8250779, 1951741, 74962661, 3261015 ####[facility] [address] [place] [address] Platelets (Bld) [#/Vol] 243.0 E9/L Normal 150.0-500.0 [facility] Comment on above: Performed By: #### 1 2364342, 1171879, 4990968, 5270040, 0829115, 19657633, 8675081, 4174333, 68830026, 2702400 ####[address] [address] RBC (Bld) [#/Vol] 4.3 E12/L Normal 4.3-5.9 [facility] Comment on above: Performed By: #### 1 9856793, 0122036, 5344789, 8178596, 0639056, 14165272, 1158536, 0750001, 23034283, 4599815 ####[facility] [address] [place] [address] WBC corrected for nucl RBC Auto (Bld) [#/Vol] 12.6 E9/L High 4.0-11.0 [facility] Comment on above: Result Comment: Slid e reviewed by HANNAH. Performed By: #### 1 2657212, 2443641, 7064952, 7267389, 5765932, 85240011, 3385368, 2461935, 33285851, 6391025 ####[address] [address] CHEMISTRYOrdered By: SYSTEM SYSTEM on 08-17-2022 Ammonia (P) [Moles/Vol] 43 umol High 11 - 35 mcmol [facility] Remisol Anion gap [Moles/Vol] 12 mmol/L Normal [...] Result UD_AMPH:POS Called to [facility] CASARE[facility] AT by MONICA EARL And Read Back For [...] 69 mL/min/1.73 m2 Normal >=59mL/min/1 .73 m2 FT Chem S Globulin (S) [Mass/Vol] 3.7 g/dL [...] CT Head or Brain w/o Contrast Normal [facility] Consent for Treatmenton Consent for Treatment [id number] :127 Normal [facility] Consultation Noteon 08-18-19 23 Consultation Note Normal [facility] Comment on above: Result Comment: Elec tronically Signed By: Awa BAUTISTA, Bekah Chatman\.br\Date and Time Signed: 08/17/22 10:14 EDT\.br\Electronically Co-Signed By: Jonathan Patel DO\.br\Date and Time Co-Signed: 08/17/22 11:06 EDT ED Clinical Summaryon 2022 ED Clinical Summary Normal [facility]by [facility]n [facility] ED Note-Physicianon 08-18-19 ED Note-Physician Normal [facility] Comment on above: Result Comment: Elec tronically Signed By: Darren Guzman DO\.br\Date and Time Signed: 08/17/22 04:38 EDT ED Patient Education Noteon 08-17-2022 ED Patient Education Note Normal [facility] ED Patient Summaryon 023 ED Patient Summary Normal [facility] Ethanolon 08-17-2022 Ethanol [Mass/Vol] mg/dL Normal <=7 [facility] Comment on above: Performed By: #### 2 733754 ####[facility] [address] [place] [address] HEMATOLOGYOrdered By: SYSTEM SYSTEM on 08-17-2022 Basophils/100 [...] 6.9 E9/L Normal 4.0 - 11.0 E9/L FT HemeAutoSS HEMATOLOGYOrdered By: Too Earl on 08-17-2022 [...] 12.6 E9/L High 4.0 - 11.0 E9/L [facility] HemeAutoSS Comment on above: Result Comment: Slid e reviewed by HANNAH. Hep Func Panelon 08-17-2022 Albumin [Mass/Vol] 4.2 g/dL Normal 3.3-5.0 [facility] Comment on above: Performed By: #### 1 5561615, 2921867, 2727106, 5859963, 6218287, 01893555, 7772853, 6894861, 58628848, 7555187 ####[facility] [address] [place] [address] Albumin/Globulin (S) [Mass conc ratio] 1.1 Normal 1.1-2.2 [facility] Comment on above: Performed By: #### 1 8279824, 4412767, 7045512, 5033314, 6989080, 77667433, 0168898, 8137654, 29964305, 9615428 ####[facility] [address] [place] [address] ALP [Catalytic activity/Vol] 83 Int._Unit/L Normal 21-98 [facility] Comment on above: Performed By: #### 1 3778555, 1422546, 4155901, 0841078, 6794512, 47047649, 4112237, 6308468, 25080632, 5074015 ####[facility] [address] [place] [address] ALT No additional P-5'-P [Catalytic activity/Vol] 139 Int._Unit/L High 6-46 [facility] Comment on above: Performed By: #### 1 0606442, 2123608, 2605289, 0035919, 0498618, 33567224, 7199189, 9091657, 29316107, 7102178 ####[facility] [address] [place] [address] AST [Catalytic activity/Vol] 146 Int._Unit/L High 5-43 [facility] Comment on above: Performed By: #### 1 8263925, 8295834, 1487174, 7919219, 1397527, 80441417, 0563794, 0406349, 13297285, 0671940 ####[facility] [address] [place] [address] Bilirubin [Mass/Vol] 1.0 mg/dL Normal 0.0-1.1 [facility] Comment on above: Performed By: #### 1 9243039, 2120565, 6264498, 1728496, 8649841, 05171594, 4957979, 3796179, 71863241, 8161193 ####[address] [place] [address] Bilirubin.direct [Mass/Vol] 0.3 mg/dL Normal 0.1-0.4 [facility] Comment on above: Performed By: #### 1 9605427, 1166061, 4024682, 9574127, 1058244, 34942377, 0647242, 9051191, 62433730, 2399336 ####[address] [address] Bilirubin.indirect [Mass or moles/Vol] 0.7 mg/dL Normal 0.1-0.9 [facility] Comment on above: Performed By: #### 1 1949828, 8130266, 3788601, 7858968, 6474465, 10844703, 0667184, 2115581, 03448993, 2759305 ####[address] [place] [address] Globulin (S) [Mass/Vol] 3.7 g/dL Normal 1.4-4.0 [facility] Comment on above: Performed By: #### 1 8974337, 3620183, 4744328, 3040990, 4343455, 21293662, 8581256, 0045874, 44097446, 3155323 ####[address] [place] [address] Protein [Mass/Vol] 7.9 g/dL High 6.0-7.8 [facility] Comment on above: Performed By: #### 1 7266682, 1487713, 3804143, 4562671, 1660963, 98428052, 5427009, 9785224, 43602109, 0404320 ####[facility] [address] [place] [address] Interdisciplinary Note - Alonso e Manageron 08-17-2022 Interdisciplinary Note - Door Worker Normal [facility] Comment on above: Result Comment: Elec tronically Signed By: Jere RN, Ernestina\.br\Date and Time Signed: 08/17/22 11:06 EDT Interdisciplinary Note - Soc ial Workeron 08-17-2022 Interdisciplinary Note - Maker Up Folding Normal [facility] Pre-Arrival Noteon Pre-Arrival Note Normal [facility] RAD - Preliminary Cat Scan R eporton 08-17-2022 RAD - Preliminary Cat Scan Report [id number]: 127 Normal [facility] SEROLOGYOrdered By: Monica Earl on 08-17-2022 Beta hCG Ql Negative (08/17/22 12:29 AM) Normal [facility] Man Sero Salicylateon 08-17-2022 Salicylates [Mass/Vol] mg/dL Low 6-29 [facility] Comment on above: Performed By: #### 1 2697953, 5399933, 4197081, 6371065, 7674892, 75092396, 3342732, 4041670, 65982176, 7565509 ####[facility] [address] [place] [address] Sed Rate Automatedon 023 Sed Rate Automated 7 mm/hr Normal 0-34 [facility] Comment on above: Performed By: #### 2 634276, 9718657, 5575630, 56981400, 7220089, 6644529, 99967115, 92243904 ####[facility] [address] [place] [address] TSH With T4fr Reflexon 08-17 TSH Qn 1.49 m[IU]/L Normal 0.34-5.60 [facility] Comment on above: Performed By: #### 2 015679, 3837686, 4480566, 23241948, 3837445, 9429489, 00481618, 09046260 ####[facility] [address] [place] [address] Troponin 0 Hr.on 08-17-2022 Troponin I.cardiac [Mass/Vol] 8.00 pg/mL Low 10.10-27.10 [facility] Comment on above: Order Comment: per p t combative/uncooperative per Dr. Guzman waiting for meds to be administered before trying iv/bloodwork. ER to notify me when ready...[facility] 08/16/2022 23:46:16 EDT Result Comment: The 95% CI (Confidence Interval) PPV (Positive Predictive Value) for myocardial infarction in females is 38 pg/mL, in males 51 pg/mL. The results should be used in conjunction with clinical conditions of myocardial infarction.(Access High Sensitivity Troponin I Instructions For Use, [employer], September 2017) Performed By: #### 1 2348402, 1781033, 8544001, 0276997, 5818318, 72864245, 3330906, 4522480, 20632469, 6609386 ####[facility] [address] [place] [address] U Drug Screenon 08-17-2022 Amphetamines Screen method >1000 ng/mL Ql (U) Positive Abnormal Negative [facility] Comment on above: Result Comment: Crit ical Result verified by repeat analysis\Critical Result UD_AMPH:POS Called to [facility]IN CASARE[facility] AT ER by MONICA EARL And Read Back For Confirmation at: 08/17/2022 03:58:19Negative Cutoff: <1000 ng/mL Performed By: #### 2 388245 ####[facility] [address] [place] [address] Cocaine Ql (U) Positive Abnormal Negative [facility] Comment on above: Result Comment: Crit ical Result verified by repeat analysis\Critical Result UD_COCM:POS Called to [facility]IN CASAREZ AT ER by MONICA EARL And Read Back For Confirmation at: 08/17/2022 03:58:19Negative Cutoff: <300 ng/mL Performed By: #### 2 906534 ####[address] [place] [address] Barbiturates Screen Ql (U) Negative Normal Negative [facility] Comment on above: Result Comment: Nega tive Cutoff: <200 ng/mL Performed By: #### 2 801708 ####[address] [place] [address] Benzodiazepines Ql (U) Negative Normal Negative [facility] Comment on above: Result Comment: Nega tive Cutoff: <200 ng/mL Performed By: #### 2 913987 ####[address] [place] [address] Opiates Screen Ql (U) Negative Normal Negative [facility] Comment on above: Result Comment: Nega tive Cutoff: <300 ng/mL Performed By: #### 2 605036 ####[address] [address] Phencyclidine Screen method >25 ng/mL Ql (U) Negative Normal Negative [facility] Comment on above: Result Comment: Nega tive Cutoff: <25 ng/mLThese drug screen results are to be used for medical (i.e., treatment) purposes only. Unconfirmed drug screening results must not be used for non-medical purposes (e.g., employment testing, legal testing). Performed By: #### 2 522451 ####[address] [place] [address] Tetrahydrocannabinol Screen method >50 ng/mL Ql (U) Negative Normal Negative [facility] Comment on above: Result Comment: Nega tive Cutoff: <50 ng/mL Performed By: #### 2 765245 ####[address] [place] [address] UA With Cult Reflexon 2022 Bilirubin Ql (U) Negative Normal Negative [facility] Comment on above: Performed By: #### 1 7306259 ####[address] [place] [address] Clarity (U) CLEAR Normal Clear [facility] Comment on above: Performed By: #### 1 8787045 ####[facility] [address] [place] [address] Color (U) YELLOW Normal Yellow [facility] Comment on above: Performed By: #### 1 4794642 ####[facility] [address] [place] [address] Crystals LM Ql (Urine sed) Present Normal [facility] Comment on above: Performed By: #### 1 7714724 ####[address] [address] Epithelial cells.squamous LM.HPF (Urine sed) [#/Area] 0-2 Normal 0-2 [facility] Comment on above: Performed By: #### 1 9865995 ####[facility] [address] [place] [address] Glucose Test strip (U) [Mass/Vol] Negative Normal Negative [facility] Comment on above: Performed By: #### 1 9641946 ####[facility] [address] [place] [address] Hemoglobin Ql (U) Negative Normal Negative [facility] Comment on above: Performed By: #### 1 9673069 ####[facility] [address] [place] [address] Ketones (U) [Mass/Vol] Negative Normal Negative [facility] Comment on above: Performed By: #### 1 1447049 ####[facility] [address] [facility] [place] [facility] [place] [address] [place].plasma/Lithiu m.RBC (Bld) [Mass ratio] 0-3 Normal 0-3 [facility] Comment on above: Performed By: #### 1 3874022 ####[facility] [address] [facility] [place] [address] Nitrite Ql (U) Negative Normal Negative [facility] Comment on above: Performed By: #### 1 2590289 ####[address] [address] pH (U) 5.5 [pH] Invalid Interpretation Code 5.0-9.0 [facility] Comment on above: Performed By: #### 1 5605434 ####[address] [address] Protein (U) [Mass/Vol] Negative Normal Negative [facility] Comment on above: Performed By: #### 1 3592851 ####[address] [address] Specific gravity (U) [Rel density] 1.020 Invalid Interpretation Code 1.005-1.030 [facility] Comment on above: Performed By: #### 1 6699532 ####[address] [address] Type of Urine collection method Clean Catch Normal [facility] Comment on above: Performed By: #### 1 0857400 ####[place] [address] Urobilinogen Qn (U) 0.2 {Surinder'U}/dL Normal 0.0-1.0 [facility] Comment on above: Performed By: #### 1 7679573 ####[address] [address] WBC Auto Ql (U) Negative Normal Negative [facility] Comment on above: Performed By: #### 1 9827503 ####[address] [address] WBC LM.HPF (Urine sed) [#/Area] 0-5 Normal 0-5 [facility] Comment on above: Performed By: #### 1 4794936 ####[address] [address] URINALYSISOrdered By: Too Earl on 08-17-2022 Bilirubin Ql (U) Negative (08/17/22 3:01 AM) Normal Negative [facility] UA Auto SS Clarity (U) Clear (08/17/22 [...] AM) Normal Negative [facility] UA Auto SS [place].plasma/Lithiu m.RBC (Bld) [Mass ratio] 0-3 /HPF Normal [...] [facility] UA Auto SS Urobilinogen Qn (U) 0.6542839 {Surinder'U}/dL Normal 0.0 - 1.0 EU/dL [facility] UA Auto SS WBC Auto Ql (U) Negative (08/17/22 3:01 AM) Normal Negative [facility] UA Auto SS WBC LM.HPF (Urine sed) [#/Area] 0-5 /HPF Normal 0-5/HPF [facility] UA Auto SS Vit B12on 08-17-2022 Cobalamin (Vitamin B12) [Mass/Vol] 384 pg/mL Normal 50-1500 [facility] Comment on above: Performed By: #### 2 535575, 2801689, 1098627, 09751585, 3024138, 1648404, 49243046, 82898926 ####[facility] [address] [place] [address] XR Chest Single Viewon 08-17 XR Chest Single View Normal [facility] eGFRon 08-17-2022 GFR/1.73 sq M.predicted among non-blacks MDRD (S/P/Bld) [Vol rate/Area] 119 mL/min/1.73 m2 Normal >=59 [facility] Comment on above: Order Comment: Order added by Discern Expert. Result Comment: Project Financial Analyst justin kidney disease could be indicated at eGFR's of less than 60 mL/min/1.73m2. Kidney failure is indicated at less than 15 mL/min/1.73m2. Performed By: #### 2 436425, 4276752, 5791307, 68949841, 9504162, 6641366, 23865599, 33557408 ####[facility] [address] [place] [address] GFR/1.73 sq M.predicted among non-blacks MDRD (S/P/Bld) [Vol rate/Area] 69 mL/min/1.73 m2 Normal >=59 [facility] Comment on above: Order Comment: Order added by Discern Expert. Result Comment: Project Financial Analyst justin kidney disease could be indicated at eGFR's of less than 60 mL/min/1.73m2. Kidney failure is indicated at less than 15 mL/min/1.73m2. Performed By: #### 1 0431648, 4215262, 2093871, 9639414, 3416417, 04526603, 5885240, 1808412, 23735709, 0407469 ####[facility] [place] [address] ED Note-Physicianon 08-17-19 23 ED Note-Physician Normal [facility] Comment on above: Result Comment: Elec tronically Signed By: Colin Fernandez PA-C\.br\Date and Time Signed: 08/15/22 20:22 EDT\.br\Electronically Co-Signed By: Isai Hall DO\.br\Date and Time Co-Signed: 08/16/22 06:53 EDT [facility] Office/Clini c Noteon 08-16-2022 [facility] Office/Clinic Note Normal [facility] Comment on above: Result Comment: Elec tronically Signed By: Amanda BARRIOS CNP\.br\Date and Time Signed: 08/16/22 10:22 EDT\.br\Electronically Co-Signed By: [employer]\.br\Date and Time Co-Signed: 08/13/22 17:08 EDT Auto Diffon 08-15-2022 Basophils/100 WBC (Bld) 1.1 % Normal 0.0-2.0 [facility] Comment on above: Order Comment: Order Added by Discern Expert. Performed By: #### 2 404103, 1183740, 41431154, 6044305, 4906854, 41709717 ####[facility] [address] [place] [address] Basophils/Leukocytes Auto (Bld) [Pure # fraction] 0.1 E9/L Normal 0.0-0.2 [facility] Comment on above: Order Comment: Order Added by Discern Expert. Performed By: #### 2 383144, 9063450, 77030429, 8109539, 7636283, 72698861 ####[facility] [address] [place] [address] Eosinophils/100 WBC (Bld) 1.3 % Normal 0.0-8.0 [facility] Comment on above: Order Comment: Order Added by Discern Expert. Performed By: #### 2 962509, 5942095, 24807243, 3927557, 7131534, 38453093 ####[facility] [address] [place] [address] Eosinophils/Leukocyte s Auto (Bld) [Pure # fraction] 0.1 E9/L Normal 0.0-0.5 [facility] Comment on above: Order Comment: Order Added by Discern Expert. Performed By: #### 2 540019, 7506684, 42147896, 3478538, 0200787, 81692130 ####[address] [place] [place] [address] Lymphocytes/100 WBC (Bld) 45.6 % Normal 14.0-50.0 [facility] Comment on above: Order Comment: Order Added by Discern Expert. Performed By: #### 2 627368, 7718323, 45727812, 1020519, 0427064, 87661331 ####[address] [place] [address] Lymphocytes/Leukocyte s Auto (Bld) [Pure # fraction] 3.2 E9/L Normal 1.0-4.0 [facility] Comment on above: Order Comment: Order Added by Discern Expert. Performed By: #### 2 703849, 5967244, 46162475, 7273313, 9621790, 85280117 ####[address] [address] Monocytes/100 WBC (Bld) 8.4 % Normal 4.0-14.0 [facility] Comment on above: Order Comment: Order Added by Discern Expert. Performed By: #### 2 167889, 7487179, 61187871, 9459278, 0836346, 34188453 ####[address] [address] Monocytes/Leukocytes Auto (Bld) [Pure # fraction] 0.6 E9/L Normal 0.2-1.0 [facility] Comment on above: Order Comment: Order Added by Discern Expert. Performed By: #### 2 268974, 6901953, 14128151, 5231941, 6753944, 95974100 ####[address] [place] [address] Neutrophils/100 WBC (Bld) 43.6 % Normal 36.0-75.0 [facility] Comment on above: Order Comment: Order Added by Discern Expert. Performed By: #### 2 916739, 7063860, 72893878, 8191012, 2710927, 35965232 ####[address] [place] [address] Neutrophils/Leukocyte s Auto (Bld) [Pure # fraction] 3.0 E9/L Normal 2.0-7.5 [facility] Comment on above: Order Comment: Order Added by Discern Expert. Performed By: #### 2 433908, 2344395, 55461524, 7753086, 7828208, 00870072 ####[facility] [address] [place] [address] BMPon 08-15-2022 Anion gap [Moles/Vol] 15 mmol/L Normal 6-16 [facility] Comment on above: Performed By: #### 2 193550, 3786575, 91401495, 8376075, 0761135, 11934382 ####[facility] [address] [place] [address] Calcium [Mass/Vol] 9.8 mg/dL Normal 8.9-11.1 [facility] Comment on above: Performed By: #### 2 130611, 1319105, 22538297, 0037138, 0302533, 47465763 ####[facility] [address] [place] [address] Chloride [Moles/Vol] 105 mmol/L Normal 101-111 [facility] Comment on above: Performed By: #### 2 110252, 0394773, 71723117, 3500937, 5064584, 43501530 ####[facility] [address] [place] [address] CO2 [Moles/Vol] 23 mmol/L Normal 21-31 [facility] Comment on above: Performed By: #### 2 803572, 1521049, 46351962, 2708111, 4323963, 59753873 ####[facility] [address] [place] [address] Creatinine [Mass/Vol] 1.0 mg/dL Normal 0.5-1.3 [facility] Comment on above: Performed By: #### 2 044541, 2749454, 52612344, 5013473, 0990169, 83010546 ####[facility] [address] [place] [address] Glucose [Mass/Vol] 113 mg/dL Normal 55-199 [facility] Comment on above: Result Comment: If t his glucose result represents a fasting glucose, interpretation should refer to the following reference range: 55-99 mg/dL Performed By: #### 2 001624, 5799537, 19017414, 8209751, 7200005, 04925113 ####[facility] [address] [place] [address] Potassium [Moles/Vol] 4.1 mmol/L Normal 3.5-5.3 [facility] Comment on above: Result Comment: 'Spe cimen hemolyzed. Result may be affected. Redraw is recommended.' Performed By: #### 2 707847, 6639534, 85882586, 9760043, 9227342, 81536302 ####[facility] [address] [place] [address] Sodium [Moles/Vol] 139 mmol/L Normal 135-145 [facility] Comment on above: Performed By: #### 2 987209, 1636392, 04337159, 6347266, 6680841, 19986275 ####[facility] [address] [place] [address] Urea nitrogen [Mass/Vol] 18 mg/dL Normal 5-21 [facility] Comment on above: Performed By: #### 2 224043, 1807715, 81883161, 7312885, 5767007, 93860332 ####[facility] [address] [place] [address] Urea nitrogen/Creatinine [Mass ratio] 18 No Units Normal 10-20 [facility] Comment on above: Performed By: #### 2 907649, 8077112, 58948415, 0942075, 5875047, 78171417 ####[facility] [address] [place] [address] CBC w/ Auto Diffon 3 Erythrocyte distribution width (RBC) [Ratio] 13.7 % Normal 10.9-14.2 [facility] Comment on above: Order Comment: Clott ed specimen. Redraw ordered. MLB Performed By: #### 2 100236, 3700563, 16539528, 3740329, 8251343, 18592516 ####[facility] [address] [place] [address] Hematocrit (Bld) [Volume fraction] 38.8 % Normal 34.0-46.0 [facility] Comment on above: Order Comment: Clott ed specimen. Redraw ordered. MLB Performed By: #### 2 618727, 6143322, 72379051, 9238519, 1061318, 73857932 ####[facility] [address] [place] [address] Hemoglobin (Bld) [Mass/Vol] 13.3 g/dL Normal 12.0-16.0 [facility] Comment on above: Order Comment: Clott ed specimen. Redraw ordered. MLB Performed By: #### 2 897467, 4224017, 53122404, 0974189, 0672040, 86468709 ####[facility] [address] [place] [address] MCH (RBC) [Entitic mass] 31.6 pg Normal 27.0-34.0 [facility] Comment on above: Order Comment: Clott ed specimen. Redraw ordered. MLB Performed By: #### 2 110070, 3213585, 81218002, 8722815, 6383255, 04137807 ####[facility] [address] [place] [address] MCHC (RBC) [Mass/Vol] 34.4 g/dL Normal 31.4-36.0 [facility] Comment on above: Order Comment: Clott ed specimen. Redraw ordered. MLB Performed By: #### 2 358531, 8218573, 42639588, 2013094, 7848127, 01715847 ####[facility] [address] [place] [address] MCV (RBC) [Entitic vol] 91.9 fL Normal 80.0-100.0 [facility] Comment on above: Order Comment: Clott ed specimen. Redraw ordered. MLB Performed By: #### 2 391205, 6277991, 13521362, 7338843, 9426863, 90365224 ####[facility] [address] [place] [address] Platelet mean volume (Bld) [Entitic vol] 7.9 fL Normal 6.4-10.8 [facility] Comment on above: Order Comment: Clott ed specimen. Redraw ordered. MLB Performed By: #### 2 415169, 5303638, 75350169, 8105897, 5911866, 33463268 ####[address] [address] Platelets (Bld) [#/Vol] 202.0 E9/L Normal 150.0-500.0 [facility] Comment on above: Order Comment: Clott ed specimen. Redraw ordered. MLB Performed By: #### 2 096217, 3177109, 49219929, 4123876, 5399207, 71194133 ####[facility] [address] [place] [address] RBC (Bld) [#/Vol] 4.2 E12/L Low 4.3-5.9 [facility] Comment on above: Order Comment: Clott ed specimen. Redraw ordered. MLB Performed By: #### 2 602213, 8031471, 15579972, 8102583, 7471097, 39656706 ####[facility] [address] [place] [address] WBC corrected for nucl RBC Auto (Bld) [#/Vol] 6.9 E9/L Normal 4.0-11.0 [facility] Comment on above: Order Comment: Clott ed specimen. Redraw ordered. MLB Performed By: #### 2 093431, 8755445, 09876739, 5900249, 1844396, 70311865 ####[facility] [address] [place] [address] Consent for Treatmenton Consent for Treatment [id number]: 127 Normal [facility] Discharge Instructionson Discharge Instructions [id number] D:127 Normal [facility] ED Clinical Summaryon 2022 [facility] ED Note-Nursingon 08-15-2022 ED Note-Nursing Normal [facility] ED Patient Education Noteon 08-15-2022 ED Patient Education Note Normal [facility] ED Patient Summaryon 023 ED Patient Summary Normal [facility] Ethanolon 08-15-2022 Ethanol [Mass/Vol] mg/dL Normal <=7 [facility] Comment on above: Performed By: #### 2 668344 ####[facility] [address] [place] [address] Hep Func Panelon 08-15-2022 Albumin [Mass/Vol] 3.9 g/dL Normal 3.3-5.0 [facility] Comment on above: Performed By: #### 2 238971, 2256455, 67803159, 9245699, 4625611, 43281501 ####[facility] [address] [place] [address] Albumin/Globulin (S) [Mass conc ratio] 1.1 Normal 1.1-2.2 [facility] Comment on above: Performed By: #### 2 200119, 9021809, 50018579, 1491513, 8211057, 81385939 ####[facility] [address] [place] [address] ALP [Catalytic activity/Vol] 85 Int._Unit/L Normal 21-98 [facility] Comment on above: Performed By: #### 2 527492, 4692224, 76779490, 8736789, 0575470, 48973847 ####[facility] [address] [place] [address] ALT No additional P-5'-P [Catalytic activity/Vol] 151 Int._Unit/L High 6-46 [facility] Comment on above: Result Comment: 'Spe cimen hemolyzed, result may be affected. Recommend redraw.' Performed By: #### 2 332787, 0644317, 45472470, 1953092, 4644079, 06745987 ####[facility] [address] [place] [address] AST [Catalytic activity/Vol] 182 Int._Unit/L High 5-43 [facility] Comment on above: Result Comment: 'Spe cimen hemolyzed, result may be affected. Recommend redraw.' Performed By: #### 2 152261, 1765053, 78078880, 7395212, 9853945, 68027391 ####[facility] [address] [place] [address] Bilirubin [Mass/Vol] 1.2 mg/dL High 0.0-1.1 [facility] Comment on above: Result Comment: 'Spe cimen hemolyzed, result may be affected. Redraw is recommended.' Performed By: #### 2 772348, 2455663, 78399937, 4307599, 8713542, 08027968 ####[facility] [address] [place] [address] Bilirubin.direct [Mass/Vol] 0.4 mg/dL Normal 0.1-0.4 [facility] Comment on above: Result Comment: 'Spe cimen hemolyzed, result may be affected. Redraw recommended.' Performed By: #### 2 179578, 3794608, 71169453, 8604089, 9893916, 58335036 ####[facility] [address] [place] [address] Bilirubin.indirect [Mass or moles/Vol] 0.8 mg/dL Normal 0.1-0.9 [facility] Comment on above: Performed By: #### 2 201097, 9311583, 06596673, 8334394, 0893427, 03047371 ####[facility] [address] [place] [address] Globulin (S) [Mass/Vol] 3.5 g/dL Normal 1.4-4.0 [facility] Comment on above: Performed By: #### 2 410684, 4659047, 32955984, 9492275, 8359921, 60845459 ####[facility] [address] [place] [address] Protein [Mass/Vol] 7.4 g/dL Normal 6.0-7.8 [facility] Comment on above: Performed By: #### 2 810668, 3223575, 02533963, 4907857, 3686092, 79201103 ####[facility] [address] [place] [address] Outside Recordson 08-15-2022 Outside Records [id number]#[id number] D:127 Normal [facility] Physician Referralon 023 Physician Referral [id number] :127 Normal [facility] Progress Note-Nurseon 2022 Progress Note-Nurse Patient on phone wit h MHP at this time Normal [facility] Troponin 0 Hr.on 08-15-2022 Troponin I.cardiac [Mass/Vol] 4.50 pg/mL Low 10.10-27.10 [facility] Comment on above: Result Comment: The 95% CI (Confidence Interval) PPV (Positive Predictive Value) for myocardial infarction in females is 38 pg/mL, in males 51 pg/mL. The results should be used in conjunction with clinical conditions of myocardial infarction.(Access High Sensitivity Troponin I Instructions For Use, [employer], September 2017) Performed By: #### 2 412107, 1591066, 96839275, 6165136, 1881823, 51222199 ####[facility] [address] [place] [address] Valuables Checkliston 2022 Valuables Checklist [id number] D:127 Normal [facility] XR Chest Single Viewon 08-15 XR Chest Single View Normal Fish er [facility] eGFRon 08-15-2022 GFR/1.73 sq M.predicted among non-blacks MDRD (S/P/Bld) [Vol rate/Area] 78 mL/min/1.73 m2 Normal >=59 [facility] Comment on above: Order Comment: Order added by Discern Expert. Result Comment: Project Financial Analyst justin kidney disease could be indicated at eGFR's of less than 60 mL/min/1.73m2. Kidney failure is indicated at less than 15 mL/min/1.73m2. Performed By: #### 2 008031, 4021876, 55651730, 2114259, 1904089, 32557176 ####[facility] [address] [place] [address] Ambulatory Visit Summaryon 0 08-13-2022 Ambulatory Visit Summary Normal [facility] Cholesterol [Mass/volume] in Serum or PlasmaOrdered By: Gautam Burrows on 06-08-2022 Cholesterol [Mass/Vol] 110 mg/dL 140-200 [facility] Comment on above: Chol less than 200 m g/dl low riskChol 201-239 mg/dl borderline riskChol 240 mg/dl and greater high risk Cholesterol in LDL Calc [Mas s/Vol]Ordered By: Gautam Burrows on 06-08-2022 Cholesterol in LDL [Mass/Vol] 53 mg/dL 0-100 [facility] Comment on above: LDL ATP III CLASSIFI CATIONLDL less than 100 mg/dL OptimalLDL 100-129 mg/dL Near or above optimalLDL 130-159 mg/dL Borderline highLDL 160-189 mg/dL HighLDL greater than 189 mg/dL Very high Cholesterol in VLDL Calc [Ma ss/Vol]Ordered By: Gautam Burrows on 06-08-2022 Cholesterol in VLDL [Mass/Vol] 21 mg/dL [facility] Serum or plasma high density lipoprotein (HDL) cholesterol measurementOrdered By: Gautam Burrows on 06-08-2022 Cholesterol in HDL [Mass/Vol] 35 mg/dL 35-85 [facility] Comment on above: HDL CHOL ATP-III CLA SSIFICATION Cardiovascular RiskHDL > or equal to 60 mg/dL LOWHDL < 40 mg/dL HIGH Serum or plasma total choles terol/high density lipoprotein (HDL) cholesterol mass ratOrdered By: Gautam Burrows on 06-08-2022 Cholesterol.total/Cho lesterol in HDL [Mass ratio] 3.1 {ratio} <5.0 [facility] Thyrotropin [Units/volume] i n Serum or PlasmaOrdered By: Gautam Burrows on 06-08-2022 TSH Qn 1.46 m[IU]/L 0.45-5.33 [facility] Triglyceride [Mass/volume] i n Serum or PlasmaOrdered By: Gautam Burrows on 06-08-2022 Triglyceride [Mass/Vol] 109 mg/dL 0-149 [facility] Comment on above: TRIG ATP III CLASSIF ICATIONTRIG less than 150 mg/dL NormalTRIG 150-199 mg/dL Borderline highTRIG 200-500 mg/dL High TRIG greater than 500 mg/dL Very highStandard traceable to the Center for Disease Conrtrol and Prevention (CDC) test method. Vitamin D+Metabolites [Mass/ volume] in Serum or PlasmaOrdered By: Gautam Burrows on 06-08-2022 Vitamin D+Metabolites [Mass/Vol] 23.4 ng/mL 30-100 [facility] Comment on above: VITAMIN D STATUS 25( [...] aPTT Coag (PPP) [Time] 30.0 s 25.1-36.5 [facility] Alanine aminotransferase [En zymatic activity/volume] in Serum or PlasmaOrdered By: Ari Aguero on 06-07-2022 ALT [Catalytic activity/Vol] 109 U/L 7-52 [facility] Albumin [Mass/volume] in Ser um or Plasma by Bromocresol green (BCG) dye binding methoOrdered By: Ari Aguero on 06-07-2022 Albumin BCG dye [Mass/Vol] 4.1 g/dL 3.5-5.7 [facility] Alkaline phosphatase [Enzyma tic activity/volume] in Serum or PlasmaOrdered By: Ari Aguero on 06-07-2022 ALP [Catalytic activity/Vol] 87 U/L 34-104 [facility] Amphetamine Screen Ql (U)Ord ered By: Ari Aguero on 06-07-2022 Amphetamines Ql (U) Positive Negative [facility] Aspartate aminotransferase [ Enzymatic activity/volume] in Serum or PlasmaOrdered By: Ari Aguero on 06-07-2022 AST [Catalytic activity/Vol] 122 U/L 13-39 [facility] Automated erythrocytes count in urine sediment (number/area)Ordered By: Ari Aguero on 06-07-2022 RBC Auto (Urine sed) [#/Area] 3-4 [HPF] 0-4 [facility] Automated leukocytes count i n urine sediment (number/area)Ordered By: Ari Aguero on 06-07-2022 WBC Auto (Urine sed) [#/Area] 0-1 [HPF] 0-4 [facility] Automated urine hyaline cast s count (number/volume)Ordered By: rAi Aguero on 06-07-2022 Hyaline casts Auto (U) [#/Vol] 20-49 [LPF] 0-1 [facility] Barbiturates [Presence] in U rine by Screen methodOrdered By: Ari Aguero on 06-07-2022 Barbiturates Screen Ql (U) Negative Negative [facility] Basophils Auto (Bld) [#/Vol] Ordered By: Ari Aguero on 06-07-2022 Basophils (Bld) [#/Vol] 0.1 10*3/uL 0.0-0.2 [facility] Basophils/100 WBC Auto (Bld) Ordered By: Ari Aguero on 06-07-2022 Basophils/100 WBC (Bld) 0.5 % . [facility] Benzodiazepines Screen Ql (U )Ordered By: Ari Aguero on 06-07-2022 Benzodiazepines Ql (U) Negative Negative [facility] Benzoylecgonine [Presence] i n Urine by Screen methodOrdered By: Ari Aguero on 06-07-2022 Benzoylecgonine Screen Ql (U) Negative Negative [facility] Bilirubin Test strip Ql (U)O rdered By: Ari Aguero on 06-07-2022 Bilirubin Ql (U) Negative Negative [facility] Bilirubin.total [Mass/volume ] in Serum or PlasmaOrdered By: Ari Aguero on 06-07-2022 Bilirubin [Mass/Vol] 0.9 mg/dL 0.3-1.[address] [facility] Calcium [Mass/volume] in Ser um or PlasmaOrdered By: Ari Aguero on 06-07-2022 Calcium [Mass/Vol] 9.2 mg/dL 8.6-10.3 [facility] Cannabinoids [Presence] in U rine by Screen methodOrdered By: Ari Aguero on 06-07-2022 Cannabinoids Screen Ql (U) Negative Negative [facility] Comment on above: These are unconfirme d results and should not be used for legal purposes. Drug Cut-Off Concentration: AMPH 1000 ng/mL JANELL 200 ng/mL JAMES 200 ng/mL COCM 300 ng/mL OP 300 ng/mL PCP 25 ng/mL THC 20 ng/mL Carbon dioxide, total [Moles /volume] in Serum or PlasmaOrdered By: Ari Aguero on 06-07-2022 CO2 [Moles/Vol] 23.1 mmol/L 21.0-31.0 [facility] Casts typing in urine sedime nt by light microscopyOrdered By: Ari Aguero on 06-07-2022 Casts LM Nom (Urine sed) None seen [LPF] None Seen [facility] Chloride [Moles/volume] in S marbella or PlasmaOrdered By: Ari Aguero on 06-07-2022 Chloride [Moles/Vol] 105 mmol/L 98-[address] [facility] Coarse granular casts count in urine sediment by microscopy low power field (number/aOrdered By: Ari Aguero on 06-07-2022 Coarse Granular Casts LM.LPF (Urine sed) [#/Area] 0-1 [LPF] 0-1 [facility] Color Auto (U)Ordered By: Robin red More on 06-07-2022 Color (U) Dark yellow Yellow [facility] Creatinine [Mass/volume] in Serum or PlasmaOrdered By: Ari Aguero on 06-07-2022 Creatinine [Mass/Vol] 0.84 mg/dL 0.60-1.20 [facility] Eosinophils Auto (Bld) [#/Vo l]Ordered By: Ari Aguero on 06-07-2022 Eosinophils (Bld) [#/Vol] 0.0 10*3/uL 0.0-0.45 [facility] Eosinophils/100 WBC Auto (Bl d)Ordered By: Ari Aguero on 06-07-2022 Eosinophils/100 WBC (Bld) 0.2 % . [facility] Erythrocyte distribution wid th Auto (RBC) [Ratio]Ordered By: Ari Aguero on 06-07-2022 Erythrocyte distribution width (RBC) [Ratio] 13.5 % 11.9-15.3 [facility] Ethanol [Mass/volume] in Ser um or PlasmaOrdered By: Ari Aguero on 06-07-2022 Ethanol [Mass/Vol] mg/dL [facility] Ethanol [Mass/Vol] TNP [facility] Comment on above: Test not performed Globulin Calc (S) [Mass/Vol] Ordered By: Ari Aguero on 06-07-2022 Globulin (S) [Mass/Vol] 3.5 g/dL [facility] Glucose [Mass/volume] in Ser um or PlasmaOrdered By: Ari Aguero on 06-07-2022 Glucose [Mass/Vol] 82 mg/dL 70-100 [facility] Comment on above: ADA recommended refe rence rangeRandom Glucose Reference Range is dependent on time and content of last meal. Glucose of more than 200 mg/dL in a nonstressed, ambulatory subject supports the diagnosis of Diabetes Mellitus. HCG ( test) IA.rapi d Ql (U)Ordered By: Ari Aguero on 06-07-2022 HCG ( test) Ql (U) Negative [facility] Hematocrit Auto (Bld) [Volum e fraction]Ordered By: Ari Aguero on 06-07-2022 Hematocrit (Bld) [Volume fraction] 40.7 % 34.0-46.4 [facility] Hemoglobin [Mass/volume] in BloodOrdered By: Ari Aguero on 06-07-2022 Hemoglobin (Bld) [Mass/Vol] 13.6 g/dL 11.8-15.4 [facility] Ketones Auto test strip (U) [Mass/Vol]Ordered By: Ari Aguero on 06-07-2022 Ketones (U) [Mass/Vol] 2+ Negative [facility] Laboratory - CoagulationOrde red By: Ari Aguero on 06-07-2022 PT Coag (PPP) [Time] 12.7 s 9.0-12.[address] [facility] Leukocytes [#/volume] correc jose for nucleated erythrocytes in Blood by Automated counOrdered By: Ari Aguero on 06-07-2022 WBC corrected for nucl RBC Auto (Bld) [#/Vol] 13.5 10*3/uL 3.8-11.6 [facility] Lipase [Enzymatic activity/v olume] in Serum or PlasmaOrdered By: Ari Aguero on 06-07-2022 Lipase [Catalytic activity/Vol] 10.0 U/L 11.0-82.0 [facility] Lymphocytes Auto (Bld) [#/Vo l]Ordered By: Ari Aguero on 06-07-2022 Lymphocytes (Bld) [#/Vol] 1.6 10*3/uL 1.00-4.8 [facility] Lymphocytes/100 WBC Auto (Bl d)Ordered By: Ari Aguero on 06-07-2022 Lymphocytes/100 WBC (Bld) 11.6 % . [facility] MCH Auto (RBC) [Entitic mass ]Ordered By: Ari Aguero on 06-07-2022 MCH (RBC) [Entitic mass] 30.6 pg 24.7-34.3 [facility] MCHC Auto (RBC) [Mass/Vol]Or dered By: Ari Aguero on 06-07-2022 MCHC (RBC) [Mass/Vol] 33.4 g/dL 32.0-35.0 [facility] MCV Auto (RBC) [Entitic vol] Ordered By: Ari Aguero on 06-07-2022 MCV (RBC) [Entitic vol] 91.7 fL 80-100 [facility] Monocyte distribution width [Entitic volume] in Blood by AutomatedOrdered By: Ari Aguero on 06-07-2022 Monocyte distribution width Auto (Bld) [Entitic vol] 20.34 % 0.00-20.00 [facility] Comment on above: For adults in ED, MD W > 20.0 may be associated with a higher risk of sepsis during the first 12 hrs of hospital admission Monocytes Auto (Bld) [#/Vol] Ordered By: Ari Aguero on 06-07-2022 Monocytes (Bld) [#/Vol] 0.6 10*3/uL 0.0-0.8 [facility] Monocytes/100 WBC Auto (Bld) Ordered By: Ari Aguero on 06-07-2022 Monocytes/100 WBC (Bld) 4.7 % . [facility] Neutrophils Auto (Bld) [#/Vo l]Ordered By: Ari Aguero on 06-07-2022 Neutrophils (Bld) [#/Vol] 11.2 10*3/uL 1.8-7.7 [facility] Neutrophils/100 WBC Auto (Bl d)Ordered By: Ari Aguero on 06-07-2022 Neutrophils/100 WBC (Bld) 83.0 % . [facility] Nitrite Test strip Ql (U)Ord ered By: Ari Aguero on 06-07-2022 Nitrite Ql (U) Negative Negative [facility] No Panel InformationOrdered By: Ari Aguero on 06-07-2022 Estimated GFR (CKD-EPI) > 60.0 mL/Min [facility] Creatinine Clearance (Chem 91.63 [facility] Nucleated erythrocytes [Pres ence] in Blood by Automated countOrdered By: Ari Aguero on 06-07-2022 Nucleated RBC Auto Ql (Bld) 0.1 /100{WBC} 0-0.5 [facility] Opiates [Presence] in Urine by Screen methodOrdered By: Ari Aguero on 06-07-2022 Opiates Screen Ql (U) Negative Negative [facility] Phencyclidine Screen Ql (U)O rdered By: Ari Aguero on 06-07-2022 Phencyclidine Ql (U) Negative Negative [facility] Platelet mean volume Auto (B ld) [Entitic vol]Ordered By: Ari Aguero on 06-07-2022 Platelet mean volume (Bld) [Entitic vol] 8.5 fL 6.3-10.7 [facility] Platelet poor plasma interna tional normalized ratio (INR) by coagulation assay (relatOrdered By: Ari Aguero on 06-07-2022 INR Coag (PPP) [Relative time] 1.1 {INR} [facility] Comment on above: INR Therapeutic Rang e [...] 06-07-2022 Platelets (Bld) [#/Vol] 142 10*3/uL 150-450 [facility] Potassium [Moles/volume] in Serum or PlasmaOrdered By: Ari Aguero on 06-07-2022 Potassium [Moles/Vol] 3.7 mmol/L 3.5-5.1 [facility] Protein Auto test strip (U) [Mass/Vol]Ordered By: Ari Aguero on 06-07-2022 Protein (U) [Mass/Vol] 30 mg/dL Negative [facility] Protein [Mass/volume] in Ser um or PlasmaOrdered By: Ari Aguero on 06-07-2022 Protein [Mass/Vol] 7.6 g/dL 6.4-8.9 [facility] RBC Auto (Bld) [#/Vol]Ordere d By: Ari Aguero on 06-07-2022 RBC (Bld) [#/Vol] 4.44 10*6/uL 3.60-5.00 [facility] Serum or plasma albumin/glob ulin mass ratioOrdered By: Ari Aguero on 06-07-2022 Albumin/Globulin [Mass ratio] 1.2 {ratio} [facility] Serum or plasma anion gap de terminationOrdered By: Ari Aguero on 06-07-2022 Anion gap [Moles/Vol] 15.6 mmol/L 6.0-15.[address] [facility] Sodium [Moles/volume] in Ser um or PlasmaOrdered By: Ari Aguero on 06-07-2022 Sodium [Moles/Vol] 140 mmol/L 136-145 [facility] Specific gravity Auto test s trip (U) [Rel density]Ordered By: Ari Aguero on 06-07-2022 Specific gravity (U) [Rel density] 1.032 1.001-1.030 [facility] Squamous epithelial cells de tection in urine sediment by light microscopyOrdered By: Ari Aguero on 06-07-2022 Epithelial cells.squamous LM Ql (Urine sed) 5-9 [HPF] 0-2 [facility] Urea nitrogen [Mass/volume] in Serum or PlasmaOrdered By: Ari Aguero on 06-07-2022 Urea nitrogen [Mass/Vol] 18 mg/dL 7-25 [facility] Urine bacteria detection by automated methodOrdered By: Ari Aguero on 06-07-2022 Bacteria Auto Ql (U) None seen None Seen [facility] Urine clarity by refractomet ry automatedOrdered By: Ari Aguero on 06-07-2022 Clarity Refractometry automated (U) Clear Clear [facility] Urine glucose measurement by automated test strip (mass/volume)Ordered By: Ari Aguero on 06-07-2022 Glucose Auto test strip (U) [Mass/Vol] Normal mg/dL Normal [facility] Urine hemoglobin detection b y automated test stripOrdered By: Ari Aguero on 06-07-2022 Hemoglobin Auto test strip Ql (U) Negative Negative [facility] Urine leukocyte esterase det ection by automated test stripOrdered By: Ari Aguero on 06-07-2022 Leukocyte esterase Auto test strip Ql (U) Negative Negative [facility] Urine sediment erythrocyte c ast count by microscopy (number/low power field)Ordered By: Ari Aguero on 06-07-2022 RBC casts LM.LPF (Urine sed) [#/Area] 0-1 [LPF] None Seen [facility] Urobilinogen Auto test strip (U) [Mass/Vol]Ordered By: Ari Aguero on 06-07-2022 Urobilinogen (U) [Mass/Vol] Normal mg/dL Normal [facility] WBC Auto (Bld) [#/Vol]Ordere d By: Ari Aguero on 06-07-2022 WBC (Bld) [#/Vol] 13.5 10*3/uL 3.8-11.6 [facility] pH Auto test strip (U)Ordere d By: Ari Aguero on 06-07-2022 pH (U) 5.5 [pH] 5.0-9.0 [facility] Alanine aminotransferase [En zymatic activity/volume] in Serum or PlasmaOrdered By: Imad Asaad on 04-24-2022 ALT [Catalytic activity/Vol] 48 U/L 7-52 [facility] Albumin [Mass/volume] in Ser um or Plasma by Bromocresol green (BCG) dye binding methoOrdered By: Imad Asaad on 04-24-2022 Albumin BCG dye [Mass/Vol] 4.2 g/dL 3.5-5.7 [facility] Alkaline phosphatase [Enzyma tic activity/volume] in Serum or PlasmaOrdered By: Imad Asaad on 04-24-2022 ALP [Catalytic activity/Vol] 85 U/L 34-104 [facility] Aspartate aminotransferase [ Enzymatic activity/volume] in Serum or PlasmaOrdered By: Imad Asaad on 04-24-2022 AST [Catalytic activity/Vol] 48 U/L 13-39 [facility] Basophils Auto (Bld) [#/Vol] Ordered By: Imad Asaad on 04-24-2022 Basophils (Bld) [#/Vol] 0.1 10*3/uL 0.0-0.2 [facility] Basophils/100 WBC Auto (Bld) Ordered By: Imad Asaad on 04-24-2022 Basophils/100 WBC (Bld) 1.2 % . [facility] Bilirubin.direct [Mass/volum e] in Serum or PlasmaOrdered By: Imad Asaad on 04-24-2022 Bilirubin.direct [Mass/Vol] 0.10 mg/dL 0.03-0.18 [facility] Bilirubin.total [Mass/volume ] in Serum or PlasmaOrdered By: Imad Asaad on 04-24-2022 Bilirubin [Mass/Vol] 0.3 mg/dL 0.3-1.[address] [facility] Complete Blood Count Auto Di ffon 04-24-2022 Basophils (Bld) [#/Vol] [id number] 10*3/uL Normal 0.0-0.2 10*3/uL [employer] Other Basophils/100 WBC (Bld) 1.200 % . % [employer] Other Eosinophils (Bld) [#/Vol] 0.885143491 10*3/uL Normal 0.0-0.45 10*3/uL [employer] Other Eosinophils/100 WBC (Bld) 1.200 % . % [employer] Other Erythrocyte distribution width (RBC) [Ratio] 13.200 % Normal 11.9-15.3 % [employer] Other Hematocrit (Bld) [Volume fraction] 44.200 % Normal 34.0-46.4 % [employer] Other Hemoglobin (Bld) [Mass/Vol] 14.323193 g/dL Normal 11.8-15.4 g/dL [employer] Other Lymphocytes (Bld) [#/Vol] 3.489865657 10*3/uL Normal 1.00-4.8 10*3/uL [employer] Other Lymphocytes/100 WBC (Bld) 39.000 % . % [employer] Other MCH (RBC) [Entitic mass] 31.8000 pg Normal 24.7-34.3 pg [employer] Other MCV (RBC) [Entitic vol] 94.5000 fL Normal 80-100 fL [employer] Other Monocytes (Bld) [#/Vol] 0.413000807 10*3/uL Normal 0.0-0.8 10*3/uL [employer] Other Monocytes/100 WBC (Bld) 6.000 % . % [employer] Other Neutrophils (Bld) [#/Vol] 4.456357752 10*3/uL Normal 1.8-7.7 10*3/uL [employer] Other Neutrophils/100 WBC (Bld) 52.600 % . % [employer] Other Platelet mean volume (Bld) [Entitic vol] 7.9000 fL Normal 6.3-10.7 fL [employer] Other WBC (Bld) [#/Vol] 7.913233650 10*3/uL Normal 3.8 -11.6 10*3/uL [employer] Other Complete Blood Count Auto Diff 7.6 10*3/uL Normal 3.8-11.6 10*3/uL [employer] Other Complete Blood Count Auto Diff 33.6 g/dL Normal 32.0-35.0 g/dL [employer] Other Complete Blood Count Auto Diff 0.5 /100{WBC} Normal 0-0.5 /100{WBC} [employer] Other Eosinophils Auto (Bld) [#/Vo l]Ordered By: Imad Asaad on 04-24-2022 Eosinophils (Bld) [#/Vol] 0.1 10*3/uL 0.0-0.45 [facility] Eosinophils/100 WBC Auto (Bl d)Ordered By: Imad Asaad on 04-24-2022 Eosinophils/100 WBC (Bld) 1.2 % . [facility] Erythrocyte distribution wid th Auto (RBC) [Ratio]Ordered By: Imad Asaad on 04-24-2022 Erythrocyte distribution width (RBC) [Ratio] 13.2 % 11.9-15.3 [facility] Erythrocytes [#/volume] in B lood by Automated countOrdered By: ad Asaad on 04-24-2022 RBC (Bld) [#/Vol] 4.67 10*6/uL 3.60-5.00 [facility] Globulin Calc (S) [Mass/Vol] Ordered By: Imad Asaad on 04-24-2022 Globulin (S) [Mass/Vol] 3.9 g/dL [facility] HCV genotyping ser/plas ampl ified probeOrdered By: [facility] HCV genotype MOISES+probe Nom 1a . [facility] HIV 1/O/2 Antigen/Antibodyon 04-24-2022 HIV 1/O/2 Antigen/Antibody Non-Reactive . [employer] Other HIV 1 and HIV-2 antibody ass ay with HIV-1 p24 antigen detectionOrdered By: Imad Asaad on 04-24-2022 HIV 1+2 Ab+HIV1 p24 Ag IA Ql Non-Reactive Non Reactive [facility] Comment on above: HIV NegativeHIV-1/HI V-2 antibodies and HIV-1 p24 antigen were NOTdetected. There is no laboratory evidence of HIV infection.Performed at: [facility] [address] [id number] Director: Adis Bhatia PhD, Phone: [phone] Hematocrit Auto (Bld) [Volum e fraction]Ordered By: Imad Asaad on 04-24-2022 Hematocrit (Bld) [Volume fraction] 44.2 % 34.0-46.4 [facility] Hemoglobin [Mass/volume] in BloodOrdered By: Kanchan Sanchez on 04-24-2022 Hemoglobin (Bld) [Mass/Vol] 14.8 g/dL 11.8-15.4 [facility] Hep B Real-Time PCR, Quanton 04-24-2022 Hep B Real-Time PCR, Quant Not detected . [employer] Other Hep B Real-Time PCR, Quant [employer] Other Hep C Genotyping Non Reflexo n 04-24-2022 Hep C Genotyping Non Reflex 1a . [employer] Other Hep C RT-PCR, Qnt (Non-Graph )on 04-24-2022 Hep C RT-PCR, Qnt (Non-Graph) [id number] . [employer] Other Hep C RT-PCR, Qnt (Non-Graph) 5.912 . [employer] Other Hepatic Panelon 04-24-2022 Albumin [Mass/Vol] 4.923578 g/dL Normal 3.5-5.7 g/dL N [employer] Other Bilirubin [Mass/Vol] 0.2206252 mg/dL Normal 0.3- 1.0 mg/dL [employer] Other Bilirubin.indirect [Mass/Vol] 0.88877808 mg/dL Normal 0.03-0.18 mg/dL [employer] Other Protein [Mass/Vol] 8.027830 g/dL Normal 6.4-8.9 g/dL N [employer] [facility] Other Hepatic Panel 0.2 mg/dL [employer] Other Hepatic Panel 3.9 g/dL [employer] Other Hepatitis A Antibody Totalon 04-24-2022 Hepatitis A Antibody Total Negative Negative [employer] Other Hepatitis A virus Ab [Presen ce] in Serum by ImmunoassayOrdered By: Imad Asaad on 04-24-2022 HAV Ab IA Ql (S) Negative Negative [facility] Comment on above: Performed at: [address] [id number] Director: Adis Bhatia PhD, Phone: [phone] Hepatitis B Core Antibodyon 04-24-2022 Hepatitis B Core Antibody Positive Critically abnormal Negative [employer] Other Hepatitis B virus surface Ag [Presence] in Serum or Plasma by ImmunoassayOrdered By: Imad Asaad on 04-24-2022 HBV surface Ag IA Ql Negative Negative [facility] Hepatitis C virus RNA [log u nits/volume] (viral load) in Serum or Plasma by MOISES withOrdered By: Imad Asaad on 04-24-2022 HCV RNA MOISES+probe [Log units/Vol] [id number] [IU]/mL . [facility] HCV RNA MOISES+probe [Log units/Vol] 5.912 . [facility] Comment on above: Result Units: log10 IU/mL Leukocytes [#/volume] correc jose for nucleated erythrocytes in Blood by Automated counOrdered By: Imad Asaad on 04-24-2022 WBC corrected for nucl RBC Auto (Bld) [#/Vol] 7.6 10*3/uL 3.8-11.6 [facility] Lymphocytes Auto (Bld) [#/Vo l]Ordered By: Imad Asaad on 04-24-2022 Lymphocytes (Bld) [#/Vol] 3.0 10*3/uL 1.00-4.8 [facility] Lymphocytes/100 WBC Auto (Bl d)Ordered By: Imad Asaad on 04-24-2022 Lymphocytes/100 WBC (Bld) 39.0 % . [facility] MCH Auto (RBC) [Entitic mass ]Ordered By: Imad Asaad on 04-24-2022 MCH (RBC) [Entitic mass] 31.8 pg 24.7-34.3 [facility] MCHC Auto (RBC) [Mass/Vol]Or dered By: Imad Asaad on 04-24-2022 MCHC (RBC) [Mass/Vol] 33.6 g/dL 32.0-35.0 [facility] MCV Auto (RBC) [Entitic vol] Ordered By: Imad Asaad on 04-24-2022 MCV (RBC) [Entitic vol] 94.5 fL 80-100 [facility] Monocytes Auto (Bld) [#/Vol] Ordered By: Imad Asaad on 04-24-2022 Monocytes (Bld) [#/Vol] 0.5 10*3/uL 0.0-0.8 [facility] Monocytes/100 WBC Auto (Bld) Ordered By: Imad Asaad on 04-24-2022 Monocytes/100 WBC (Bld) 6.0 % . [facility] Neutrophils Auto (Bld) [#/Vo l]Ordered By: Imad Asaad on 04-24-2022 Neutrophils (Bld) [#/Vol] 4.0 10*3/uL 1.8-7.7 [facility] Neutrophils/100 WBC Auto (Bl d)Ordered By: Imad Asaad on 04-24-2022 Neutrophils/100 WBC (Bld) 52.6 % . [facility] No Panel InformationOrdered By: Imad Asaad on 04-24-2022 Hepatitis B Core Total Antibody Positive Negative [facility] Hepatitis B DNA Test Information See comment . [facility] Comment on above: The reportable range for this assay is 10 IU/mL to 1billion IU/mL.Performed at: [address] [id number] Director: Gunnar Shanks MD, Phone: [phone] Hepatitis C RNA (PCR) Interpret See comment . [facility] Comment on above: The quantitative ran ge of this assay is 15 IU/mL to 100million IU/mL. Hepatitis Delta Antibody See comment [facility] Comment on above: See report. Scanned copy available in EMR. Herpes Simplex Virus Note 2 See comment . [facility] Comment on above: This test was develo ped and its performance characteristicsdetermined by [employer]. It has not been cleared or approvedby the U.S. Food and Drug Administration.The FDA has determined that such clearance or approval isnot necessary. This test is used for clinical purposes. Itshould not be regarded as investigational or for research.Performed at: [facility] [address] [place], [place] [id number] Director: Gunnar Shanks MD, Phone: [phone] Nucleated erythrocytes [Pres ence] in Blood by Automated countOrdered By: Kanchan Sanchez on 04-24-2022 Nucleated RBC Auto Ql (Bld) 0.5 /100{WBC} 0-0.5 [facility] Platelet mean volume Auto (B ld) [Entitic vol]Ordered By: Imad Surajad on 04-24-2022 Platelet mean volume (Bld) [Entitic vol] 7.9 fL 6.3-10.7 [facility] Platelets [#/volume] in Bloo d by Automated countOrdered By: Impepe Sanchez on 04-24-2022 Platelets (Bld) [#/Vol] 390 10*3/uL 150-450 [facility] Protein [Mass/volume] in Ser um or PlasmaOrdered By: Imad Laura on 04-24-2022 Protein [Mass/Vol] 8.1 g/dL 6.4-8.9 [facility] Serum hepatitis B virus surf lady antibody detectionOrdered By: Kanchan Sanchez on 04-24-2022 HBV surface Ab Ql (S) Non-Reactive . [facility] Comment on above: Non Reactive: Incons istent with immunity, less than 10 mIU/mL Reactive: Consistent with immunity, greater than 9.9 mIU/mL Serum or plasma albumin/glob ulin mass ratioOrdered By: pepe [facility]22 Albumin/Globulin [Mass ratio] 1.1 {ratio} [facility] Serum or plasma hepatitis B virus DNA measurement (units/volume) (viral load) by probOrdered By: Kanchan Sanchez on 04-24-2022 HBV DNA MOISES+probe Qn Not detected . [facility] Serum or plasma hepatitis B virus DNA viral load by probe and target amplification meOrdered By: pepe Sanchez on 04-24-2022 HBV DNA MOISES+probe [#/Vol] N/A [facility] HBV DNA MOISES+probe [Log units/Vol] See comment . [facility] Comment on above: Result Units: log10 IU/mLUnable to calculate result since non-numeric resultobtained for component test. Serum or plasma non-glucuron idated bilirubin measurement (mass/volume)Ordered By: Kanchan Sanchez on 04-24-2022 Bilirubin.indirect [Mass/Vol] 0.2 mg/dL [facility] WBC Auto (Bld) [#/Vol]Ordere d By: Kanchan Sanchez on 04-24-2022 WBC (Bld) [#/Vol] 7.6 10*3/uL 3.8-11.6 [facility] Activated partial thrombopla stin time (aPTT) in platelet poor plasma by coagulation aOrdered By: Pavel Yao on 04-11-2022 aPTT Coag (PPP) [Time] 26.1 s 25.1-36.5 [facility] Amphetamine Screen Ql (U)Ord ered By: Pavel Yao on 04-11-2022 Amphetamines Ql (U) Negative Negative [facility] Automated erythrocytes count in urine sediment (number/area)Ordered By: Pavel Yao on 04-11-2022 RBC Auto (Urine sed) [#/Area] 1-2 [HPF] 0-4 [facility] Automated leukocytes count i n urine sediment (number/area)Ordered By: Pavel Yao on 04-11-2022 WBC Auto (Urine sed) [#/Area] 1-2 [HPF] 0-4 [facility] Automated urine hyaline cast s count (number/volume)Ordered By: Pavel Yao on 04-11-2022 Hyaline casts Auto (U) [#/Vol] 1-2 [LPF] 0-1 [facility] Barbiturates [Presence] in U rineOrdered By: Pavel Yao on 04-11-2022 Barbiturates Ql (U) Negative Negative [facility] Basophils Auto (Bld) [#/Vol] Ordered By: Pavel Yao on 04-11-2022 Basophils (Bld) [#/Vol] 0.0 10*3/uL 0.0-0.2 [facility] Basophils/100 WBC Auto (Bld) Ordered By: Pavel Yao on 04-11-2022 Basophils/100 WBC (Bld) 0.3 % . [facility] Benzodiazepines [Presence] i n UrineOrdered By: Pavel Yao on 04-11-2022 Benzodiazepines Ql (U) Negative Negative [facility] Bilirubin Test strip Ql (U)O rdered By: Pavel Yao on 04-11-2022 Bilirubin Ql (U) 1+ Negative [facility] Calcium [Mass/volume] in Ser um or PlasmaOrdered By: Pavel Yao on 04-11-2022 Calcium [Mass/Vol] 8.7 mg/dL 8.2-10.2 [facility] Cannabinoids [Presence] in U rine by Screen methodOrdered By: Pavel Yao on 04-11-2022 Cannabinoids Screen Ql (U) Negative Negative [facility] Comment on above: These are unconfirme d results and should not be used for legal purposes. Drug Cut-Off Concentration: AMPH 1000 ng/mL JANELL 200 ng/mL JAMES 200 ng/mL COCM 300 ng/mL OP 300 ng/mL PCP 25 ng/mL THC 20 ng/mL Carbon dioxide, total [Moles /volume] in Serum or PlasmaOrdered By: Pavel Yao on 04-11-2022 CO2 [Moles/Vol] 20.4 mmol/L 22.0-30.0 [facility] Casts typing in urine sedime nt by light microscopyOrdered By: Pavel Yao on 04-11-2022 Casts LM Nom (Urine sed) None seen [LPF] None Seen [facility] Chloride [Moles/volume] in S marbella or PlasmaOrdered By: Pavel Yao on 04-11-2022 Chloride [Moles/Vol] 100 mmol/L 95-[address] [facility] Color Auto (U)Ordered By: Venkatesh Yao on 04-11-2022 Color (U) Dark yellow Yellow [facility] Creatinine and Glomerular fi ltration rate.predicted panel (S/P/Bld)Ordered By: Pavel Yao on 04-11-2022 Creatinine [Mass/Vol] 0.44 mg/dL 0.44-1.03 [facility] Eosinophils Auto (Bld) [#/Vo l]Ordered By: Pavel Yao on 04-11-2022 Eosinophils (Bld) [#/Vol] 0.0 10*3/uL 0.0-0.45 [facility] Eosinophils/100 WBC Auto (Bl d)Ordered By: Pavel Yao on 04-11-2022 Eosinophils/100 WBC (Bld) 0.5 % . [facility] Erythrocyte distribution wid th Auto (RBC) [Ratio]Ordered By: Pavel Yao on 04-11-2022 Erythrocyte distribution width (RBC) [Ratio] 13.5 % 11.9-15.3 [facility] Estimated glomerular filtrat ion rate (GFR) non- AmericanOrdered By: Pavel Yao on 04-11-2022 GFR/1.73 sq M.predicted among non-blacks MDRD (S/P/Bld) [Vol rate/Area] > 60 mL/Min [facility] Glucose [Mass/volume] in Ser um or PlasmaOrdered By: Pavel Yao on 04-11-2022 Glucose [Mass/Vol] 60 mg/dL 70-100 [facility] Comment on above: ADA recommended refe rence rangeRandom Glucose Reference Range is dependent on time and content of last meal. Glucose of more than 200 mg/dL in a nonstressed, ambulatory subject supports the diagnosis of Diabetes Mellitus. HCG ( test) IACharismarapi d Ql (U)Ordered By: Pavel Yao on 04-11-2022 HCG ( test) Ql (U) Negative [facility] Hematocrit Auto (Bld) [Volum e fraction]Ordered By: Pavel Yao on 04-11-2022 Hematocrit (Bld) [Volume fraction] 42.4 % 34.0-46.4 [facility] Hemoglobin [Mass/volume] in BloodOrdered By: Pavel Yao on 04-11-2022 Hemoglobin (Bld) [Mass/Vol] 14.4 g/dL 11.8-15.4 [facility] Ketones Auto test strip (U) [Mass/Vol]Ordered By: Pavel Yao on 04-11-2022 Ketones (U) [Mass/Vol] 3+ Negative [facility] Laboratory - Chemistry and C hemistry - challengeOrdered By: Pavel Yao on 04-11-2022 Magnesium [Mass/Vol] 1.7 mg/dL 1.6-2.[address] [facility] Laboratory - CoagulationOrde red By: Pavel Yao on 04-11-2022 PT Coag (PPP) [Time] 12.1 s 9.0-12.[address] [facility] Laboratory - Drug toxicology Ordered By: Pavel Yao on 04-11-2022 Opiates Ql (U) Negative Negative [facility] Leukocytes [#/volume] correc jose for nucleated erythrocytes in Blood by Automated counOrdered By: Pavel Yao on 04-11-2022 WBC corrected for nucl RBC Auto (Bld) [#/Vol] 8.0 10*3/uL 3.8-11.6 [facility] Lymphocytes Auto (Bld) [#/Vo l]Ordered By: Pavel Yao on 04-11-2022 Lymphocytes (Bld) [#/Vol] 1.6 10*3/uL 1.00-4.8 [facility] Lymphocytes/100 WBC Auto (Bl d)Ordered By: Pavel Yao on 04-11-2022 Lymphocytes/100 WBC (Bld) 19.9 % . [facility] MCH Auto (RBC) [Entitic mass ]Ordered By: Pavel Yao on 04-11-2022 MCH (RBC) [Entitic mass] 31.5 pg 24.7-34.3 [facility] MCHC Auto (RBC) [Mass/Vol]Or dered By: Pavel Yao on 04-11-2022 MCHC (RBC) [Mass/Vol] 33.9 g/dL 32.0-35.0 [facility] MCV Auto (RBC) [Entitic vol] Ordered By: Pavel Yao on 04-11-2022 MCV (RBC) [Entitic vol] 93.0 fL 80-100 [facility] Monocyte distribution width [Entitic volume] in Blood by AutomatedOrdered By: Pavel Yao on 04-11-2022 Monocyte distribution width Auto (Bld) [Entitic vol] 18.35 % 0.00-20.00 [facility] Monocytes Auto (Bld) [#/Vol] Ordered By: Pavel aYo on 04-11-2022 Monocytes (Bld) [#/Vol] 0.4 10*3/uL 0.0-0.8 [facility] Monocytes/100 WBC Auto (Bld) Ordered By: Pavel Yao on 04-11-2022 Monocytes/100 WBC (Bld) 5.2 % . [facility] Neutrophils Auto (Bld) [#/Vo l]Ordered By: Pavel Yao on 04-11-2022 Neutrophils (Bld) [#/Vol] 5.9 10*3/uL 1.8-7.7 [facility] Neutrophils/100 WBC Auto (Bl d)Ordered By: Pavel Yao on 04-11-2022 Neutrophils/100 WBC (Bld) 74.1 % . [facility] Nitrite Test strip Ql (U)Ord ered By: Pavel Yao on 04-11-2022 Nitrite Ql (U) Negative Negative [facility] No Panel InformationOrdered By: Pavel Yao on 04-11-2022 D-Dimer Quantitative (PE/DVT) 231 ng/mL 0-243 [facility] Comment on above: The reference range for [...] conditions. Estimated GFR () > 60 mL/Min [facility] Comment on above: GFR estimated refere nce range: According to KDOQI guidelines, <60 ml/min/1.73m2 is sufficient to diagnose a patient with chronic kidney disease. Pharmacy Creatinine Clearance (Chem 177.08 [facility] Nucleated erythrocytes [Pres ence] in Blood by Automated countOrdered By: Pavel Yao on 04-11-2022 Nucleated RBC Auto Ql (Bld) 0.1 /100{WBC} 0-0.5 [facility] Phencyclidine Screen Ql (U)O rdered By: Pavel Yao on 04-11-2022 Phencyclidine Ql (U) Negative Negative [facility] Platelet mean volume Auto (B ld) [Entitic vol]Ordered By: Pavel Yao on 04-11-2022 Platelet mean volume (Bld) [Entitic vol] 8.2 fL 6.3-10.7 [facility] Platelet poor plasma interna tional normalized ratio (INR) by coagulation assay (relatOrdered By: Pavel Yao on 04-11-2022 INR Coag (PPP) [Relative time] 1.0 {INR} [facility] Comment on above: INR Therapeutic Rang e [...] 04-11-2022 Platelets (Bld) [#/Vol] 167 10*3/uL 150-450 [facility] Potassium [Moles/volume] in Serum or PlasmaOrdered By: Pavel Yao on 04-11-2022 Potassium [Moles/Vol] 3.7 mmol/L 3.5-5.1 [facility] Protein Auto test strip (U) [Mass/Vol]Ordered By: Pavel Yao on 04-11-2022 Protein (U) [Mass/Vol] 30 mg/dL Negative [facility] RBC Auto (Bld) [#/Vol]Ordere d By: Pavel Yao on 04-11-2022 RBC (Bld) [#/Vol] 4.56 10*6/uL 3.60-5.00 [facility] Serum or plasma anion gap de terminationOrdered By: Pavel Yao on 04-11-2022 Anion gap [Moles/Vol] 19.3 mmol/L 6.0-15.[address] [facility] Sodium [Moles/volume] in Ser um or PlasmaOrdered By: Pavel Yao on 04-11-2022 Sodium [Moles/Vol] 136 mmol/L 136-146 [facility] Specific gravity Auto test s trip (U) [Rel density]Ordered By: Pavel Yao on 04-11-2022 Specific gravity (U) [Rel density] 1.025 1.001-1.030 [facility] Squamous epithelial cells de tection in urine sediment by light microscopyOrdered By: Pavel Yao on 04-11-2022 Epithelial cells.squamous LM Ql (Urine sed) 5-9 [HPF] 0-2 [facility] Troponin I.cardiac [Mass/vol ume] in Serum or Plasma by High sensitivity methodOrdered By: Pavel Yao on 04-11-2022 Troponin I.cardiac High sensitivity method [Mass/Vol] 6 pg/mL 0-15 [facility] Urea nitrogen [Mass/volume] in Serum or PlasmaOrdered By: Pavel Yao on 04-11-2022 Urea nitrogen [Mass/Vol] 6 mg/dL 9-23 [facility] Urine bacteria detection by automated methodOrdered By: Pavel Yao on 04-11-2022 Bacteria Auto Ql (U) None seen None Seen [facility] Urine clarity by refractomet ry automatedOrdered By: Pavel Yao on 04-11-2022 Clarity Refractometry automated (U) Cloudy Clear [facility] Urine cocaine detectionOrder ed By: Pavel Yao on 04-11-2022 Cocaine Ql (U) Negative Negative [facility] Urine glucose measurement by automated test strip (mass/volume)Ordered By: Pavel Yao on 04-11-2022 Glucose Auto test strip (U) [Mass/Vol] Normal mg/dL Normal [facility] Urine hemoglobin detection b y automated test stripOrdered By: Pavel Yao on 04-11-2022 Hemoglobin Auto test strip Ql (U) 3+ Negative [facility] Urine leukocyte esterase det ection by automated test stripOrdered By: Pavel Yao on 04-11-2022 Leukocyte esterase Auto test strip Ql (U) Negative Negative [facility] Urobilinogen Auto test strip (U) [Mass/Vol]Ordered By: Pavel Yao on 04-11-2022 Urobilinogen (U) [Mass/Vol] mg/dL Normal [facility] WBC Auto (Bld) [#/Vol]Ordere d By: Pavel Yao on 04-11-2022 WBC (Bld) [#/Vol] 8.0 10*3/uL 3.8-11.6 [facility] pH Auto test strip (U)Ordere d By: Pavel Yao on 04-11-2022 pH (U) 6.5 [pH] 5.0-9.0 [facility] Serum or plasma ethanol judi urement (mass/volume)Ordered By: Eric Dooley on 04-04-2022 Ethanol [Mass/Vol] 141 mg/dL [facility] Ethanol [Mass/Vol] 0.141 % [facility] Alkaline phosphatase [Enzyma tic activity/volume] in Serum or PlasmaOrdered By: Eric Dooley on 04-03-2022 ALP [Catalytic activity/Vol] 74 U/L 32-92 [facility] Amphetamine Screen Ql (U)Ord ered By: Eric Dooley on 04-03-2022 Amphetamines Ql (U) Positive Negative [facility] Aspartate aminotransferase [ Enzymatic activity/volume] in Serum or PlasmaOrdered By: Eric Dooley on 04-03-2022 AST [Catalytic activity/Vol] 79 U/L 10-42 [facility] Bacterial blood cultureOrder ed By: Ari Aguero on 04-03-2022 Bacteria identified Cx Nom (Bld) NO GROWTH 5 DAYS [facility] Bacteria identified Cx Nom (Bld) NO GROWTH 5 DAYS [facility] Barbiturates [Presence] in U rineOrdered By: Eric Dooley on 04-03-2022 Barbiturates Ql (U) Negative Negative [facility] Basophils Auto (Bld) [#/Vol] Ordered By: Ari Aguero on 04-03-2022 Basophils (Bld) [#/Vol] 0.1 10*3/uL 0.0-0.2 [facility] Basophils/100 WBC Auto (Bld) Ordered By: Eric Dooley on 04-03-2022 Basophils/100 WBC (Bld) 1.6 % . [facility] Basophils/100 WBC Auto (Bld) Ordered By: Ari Aguero on 04-03-2022 Basophils/100 WBC (Bld) 0.8 % . [facility] Benzodiazepines [Presence] i n UrineOrdered By: Eric Dooley on 04-03-2022 Benzodiazepines Ql (U) Negative Negative [facility] Bilirubin Test strip Ql (U)O rdered By: Eric Dooley on 04-03-2022 Bilirubin Ql (U) Negative Negative [facility] Body fluid albumin measureme nt (mass/volume)Ordered By: Eric Dooley on 04-03-2022 Albumin (Body fld) [Mass/Vol] 3.5 g/dL 3.2-5.5 [facility] C reactive protein [Mass/vol ume] in Serum or PlasmaOrdered By: Ari Aguero on 04-03-2022 CRP [Mass/Vol] 0.7 mg/dL 0.0-1.0 [facility] Calcium [Mass/volume] in Ser um or PlasmaOrdered By: Eric Dooley on 04-03-2022 Calcium [Mass/Vol] 8.8 mg/dL 8.2-10.2 [facility] Cannabinoids [Presence] in U rine by Screen methodOrdered By: Eric Dooley on 04-03-2022 Cannabinoids Screen Ql (U) Negative Negative [facility] Comment on above: These are unconfirme d results and should not be used for legal purposes. Drug Cut-Off Concentration: AMPH 1000 ng/mL JANELL 200 ng/mL JAMES 200 ng/mL COCM 300 ng/mL OP 300 ng/mL PCP 25 ng/mL THC 20 ng/mL Carbon dioxide, total [Moles /volume] in Serum or PlasmaOrdered By: Eric Dooley on 04-03-2022 CO2 [Moles/Vol] 24.9 mmol/L 22.0-30.0 [facility] Color Auto (U)Ordered By: Anita Dooley on 04-03-2022 Color (U) Yellow Yellow [facility] Creatinine and Glomerular fi ltration rate.predicted panel (S/P/Bld)Ordered By: Eric Dooley on 04-03-2022 Creatinine [Mass/Vol] 0.52 mg/dL 0.44-1.03 [facility] Creatinine and Glomerular fi ltration rate.predicted panel (S/P/Bld)Ordered By: Ari Aguero on 04-03-2022 Creatinine [Mass/Vol] 0.55 mg/dL 0.44-1.03 [facility] Eosinophils Auto (Bld) [#/Vo l]Ordered By: Eric Dooley on 04-03-2022 Eosinophils (Bld) [#/Vol] 0.2 10*3/uL 0.0-0.45 [facility] Eosinophils Auto (Bld) [#/Vo l]Ordered By: Ari Aguero on 04-03-2022 Eosinophils (Bld) [#/Vol] 0.1 10*3/uL 0.0-0.45 [facility] Eosinophils/100 WBC Auto (Bl d)Ordered By: Eric Dooley on 04-03-2022 Eosinophils/100 WBC (Bld) 1.8 % . [facility] Eosinophils/100 WBC Auto (Bl d)Ordered By: Ari Aguero on 04-03-2022 Eosinophils/100 WBC (Bld) 1.5 % . [facility] Erythrocyte distribution wid th Auto (RBC) [Ratio]Ordered By: Ari Aguero on 04-03-2022 Erythrocyte distribution width (RBC) [Ratio] 13.3 % 11.9-15.3 [facility] Erythrocyte sedimentation ra te by Photometric methodOrdered By: Ari Aguero on 04-03-2022 ESR Photometric method (Bld) [Velocity] 9 mm/hr 0-19 [facility] Estimated glomerular filtrat ion rate (GFR) non- AmericanOrdered By: Ari Aguero on 04-03-2022 GFR/1.73 sq M.predicted among non-blacks MDRD (S/P/Bld) [Vol rate/Area] > 60 mL/Min [facility] Globulin Calc (S) [Mass/Vol] Ordered By: Eric Dooley on 04-03-2022 Globulin (S) [Mass/Vol] 3.3 g/dL [facility] Hematocrit Auto (Bld) [Volum e fraction]Ordered By: Eric Dooley on 04-03-2022 Hematocrit (Bld) [Volume fraction] 44.1 % 34.0-46.4 [facility] Hematocrit Auto (Bld) [Volum e fraction]Ordered By: Ari Aguero on 04-03-2022 Hematocrit (Bld) [Volume fraction] 43.6 % 34.0-46.4 [facility] Hemoglobin [Mass/volume] in BloodOrdered By: Eric Dooley on 04-03-2022 Hemoglobin (Bld) [Mass/Vol] 14.8 g/dL 11.8-15.4 [facility] Hemoglobin [Mass/volume] in BloodOrdered By: Ari Aguero on 04-03-2022 Hemoglobin (Bld) [Mass/Vol] 14.5 g/dL 11.8-15.4 [facility] Ketones Auto test strip (U) [Mass/Vol]Ordered By: Eric Dooley on 04-03-2022 Ketones (U) [Mass/Vol] Negative Negative [facility] Laboratory - Drug toxicology Ordered By: rEic Dooley on 04-03-2022 Opiates Ql (U) Negative Negative [facility] Leukocytes [#/volume] correc jose for nucleated erythrocytes in Blood by Automated counOrdered By: Eric Dooley on 04-03-2022 WBC corrected for nucl RBC Auto (Bld) [#/Vol] 8.3 10*3/uL 3.8-11.6 [facility] Leukocytes [#/volume] correc jose for nucleated erythrocytes in Blood by Automated counOrdered By: Ari Aguero on 04-03-2022 WBC corrected for nucl RBC Auto (Bld) [#/Vol] 7.0 10*3/uL 3.8-11.6 [facility] Lymphocytes Auto (Bld) [#/Vo l]Ordered By: Eric Dooley on 04-03-2022 Lymphocytes (Bld) [#/Vol] 3.9 10*3/uL 1.00-4.8 [facility] Lymphocytes Auto (Bld) [#/Vo l]Ordered By: Ari Aguero on 04-03-2022 Lymphocytes (Bld) [#/Vol] 1.7 10*3/uL 1.00-4.8 [facility] Lymphocytes/100 WBC Auto (Bl d)Ordered By: Eric Dooley on 04-03-2022 Lymphocytes/100 WBC (Bld) 46.7 % . [facility] Lymphocytes/100 WBC Auto (Bl d)Ordered By: Ari Aguero on 04-03-2022 Lymphocytes/100 WBC (Bld) 24.5 % . [facility] MCH Auto (RBC) [Entitic mass ]Ordered By: Eric Dooley on 04-03-2022 MCH (RBC) [Entitic mass] 31.3 pg 24.7-34.3 [facility] MCH Auto (RBC) [Entitic mass ]Ordered By: Ari Aguero on 04-03-2022 MCH (RBC) [Entitic mass] 31.0 pg 24.7-34.3 [facility] MCHC Auto (RBC) [Mass/Vol]Or dered By: Eric Dooley on 04-03-2022 MCHC (RBC) [Mass/Vol] 33.5 g/dL 32.0-35.0 [facility] MCHC Auto (RBC) [Mass/Vol]Or dered By: Ari Aguero on 04-03-2022 MCHC (RBC) [Mass/Vol] 33.3 g/dL 32.0-35.0 [facility] MCV Auto (RBC) [Entitic vol] Ordered By: Eric Dooley on 04-03-2022 MCV (RBC) [Entitic vol] 93.4 fL 80-100 [facility] MCV Auto (RBC) [Entitic vol] Ordered By: Ari Aguero on 04-03-2022 MCV (RBC) [Entitic vol] 93.3 fL 80-100 [facility] Monocyte distribution width [Entitic volume] in Blood by AutomatedOrdered By: Eric Dooley on 04-03-2022 Monocyte distribution width Auto (Bld) [Entitic vol] 20.63 % 0.00-20.00 [facility] Comment on above: For adults in ED, MD W > 20.0 may be associated with a higher risk of sepsis during the first 12 hrs of hospital admission Monocyte distribution width [Entitic volume] in Blood by AutomatedOrdered By: Ari Aguero on 04-03-2022 Monocyte distribution width Auto (Bld) [Entitic vol] 16.81 % 0.00-20.00 [facility] Monocytes Auto (Bld) [#/Vol] Ordered By: Ari Aguero on 04-03-2022 Monocytes (Bld) [#/Vol] 0.5 10*3/uL 0.0-0.8 [facility] Monocytes/100 WBC Auto (Bld) Ordered By: Eric Dooley on 04-03-2022 Monocytes/100 WBC (Bld) 6.5 % . [facility] Monocytes/100 WBC Auto (Bld) Ordered By: Ari Aguero on 04-03-2022 Monocytes/100 WBC (Bld) 6.6 % . [facility] Neutrophils Auto (Bld) [#/Vo l]Ordered By: Eric Dooley on 04-03-2022 Neutrophils (Bld) [#/Vol] 3.6 10*3/uL 1.8-7.7 [facility] Neutrophils Auto (Bld) [#/Vo l]Ordered By: Ari Aguero on 04-03-2022 Neutrophils (Bld) [#/Vol] 4.6 10*3/uL 1.8-7.7 [facility] Neutrophils/100 WBC Auto (Bl d)Ordered By: Eric Dooley on 04-03-2022 Neutrophils/100 WBC (Bld) 43.4 % . [facility] Neutrophils/100 WBC Auto (Bl d)Ordered By: Ari Aguero on 04-03-2022 Neutrophils/100 WBC (Bld) 66.6 % . [facility] Nitrite Test strip Ql (U)Ord ered By: Eric Dooley on 04-03-2022 Nitrite Ql (U) Negative Negative [facility] No Panel InformationOrdered By: Eric Dooley on 04-03-2022 Pharmacy Creatinine Clearance (Chem 173.81 [facility] No Panel InformationOrdered By: Ari Aguero on 04-03-2022 Estimated GFR () > 60 mL/Min [facility] Comment on above: GFR estimated refere nce range: According to KDOQI guidelines, <60 ml/min/1.73m2 is sufficient to diagnose a patient with chronic kidney disease. Pharmacy Creatinine Clearance (Chem 141.66 [facility] Nucleated erythrocytes [Pres ence] in Blood by Automated countOrdered By: Ari Aguero on 04-03-2022 Nucleated RBC Auto Ql (Bld) 0.1 /100{WBC} 0-0.5 [facility] Phencyclidine Screen Ql (U)O rdered By: Eric Dooley on 04-03-2022 Phencyclidine Ql (U) Negative Negative [facility] Platelet mean volume Auto (B ld) [Entitic vol]Ordered By: Eric Dooley on 04-03-2022 Platelet mean volume (Bld) [Entitic vol] 8.0 fL 6.3-10.7 [facility] Platelet mean volume Auto (B ld) [Entitic vol]Ordered By: Ari Aguero on 04-03-2022 Platelet mean volume (Bld) [Entitic vol] 8.1 fL 6.3-10.7 [facility] Platelets Auto (Bld) [#/Vol] Ordered By: Eric Dooley on 04-03-2022 Platelets (Bld) [#/Vol] 191 10*3/uL 150-450 [facility] Platelets Auto (Bld) [#/Vol] Ordered By: Ari Aguero on 04-03-2022 Platelets (Bld) [#/Vol] 179 10*3/uL 150-450 [facility] Protein Auto test strip (U) [Mass/Vol]Ordered By: Eric Dooley on 04-03-2022 Protein (U) [Mass/Vol] Negative Negative [facility] Protein [Mass/volume] in Ser um or PlasmaOrdered By: Eric Dooley on 04-03-2022 Protein [Mass/Vol] 6.8 g/dL 6.1-7.9 [facility] RBC Auto (Bld) [#/Vol]Ordere d By: Eric Dooley on 04-03-2022 RBC (Bld) [#/Vol] 4.72 10*6/uL 3.60-5.00 [facility] RBC Auto (Bld) [#/Vol]Ordere d By: Ari Aguero on 04-03-2022 RBC (Bld) [#/Vol] 4.68 10*6/uL 3.60-5.00 [facility] Serum or plasma alanine urbina otransferase measurement without P-5'-P (enzymatic activiOrdered By: Eric Dooley on 04-03-2022 ALT No additional P-5'-P [Catalytic activity/Vol] 74 U/L 10-60 [facility] Serum or plasma albumin/glob ulin mass ratioOrdered By: Eric Dooley on 04-03-2022 Albumin/Globulin [Mass ratio] 1.1 {ratio} [facility] Serum or plasma anion gap de terminationOrdered By: Eric Dooley on 04-03-2022 Anion gap [Moles/Vol] 13.6 mmol/L 6.0-15.[address] [facility] Serum or plasma anion gap de terminationOrdered By: Ari Aguero on 04-03-2022 Anion gap [Moles/Vol] 10.4 mmol/L 6.0-15.[address] [facility] Serum or plasma calcium judi urement (mass/volume)Ordered By: Ari Aguero on 04-03-2022 Calcium [Mass/Vol] 8.9 mg/dL 8.2-10.2 [facility] Serum or plasma chloride nataliia surement (moles/volume)Ordered By: Eric Dooley on 04-03-2022 Chloride [Moles/Vol] 104 mmol/L 95-[address] [facility] Serum or plasma chloride nataliia surement (moles/volume)Ordered By: Ari Aguero on 04-03-2022 Chloride [Moles/Vol] 103 mmol/L 95-[address] [facility] Serum or plasma glucose judi urement (mass/volume)Ordered By: Eric Dooley on 04-03-2022 Glucose [Mass/Vol] 88 mg/dL 70-100 [facility] Comment on above: ADA recommended refe rence rangeRandom Glucose Reference Range is dependent on time and content of last meal. Glucose of more than 200 mg/dL in a nonstressed, ambulatory subject supports the diagnosis of Diabetes Mellitus. Serum or plasma glucose judi urement (mass/volume)Ordered By: Ari Aguero on 04-03-2022 Glucose [Mass/Vol] 87 mg/dL 70-100 [facility] Comment on above: ADA recommended refe rence rangeRandom Glucose Reference Range is dependent on time and content of last meal. Glucose of more than 200 mg/dL in a nonstressed, ambulatory subject supports the diagnosis of Diabetes Mellitus. Serum or plasma potassium me asurement (moles/volume)Ordered By: Eric Dooley on 04-03-2022 Potassium [Moles/Vol] 3.5 mmol/L 3.5-5.1 [facility] Serum or plasma potassium me asurement (moles/volume)Ordered By: Ari Aguero on 04-03-2022 Potassium [Moles/Vol] 4.1 mmol/L 3.5-5.1 [facility] Serum or plasma sodium measu rement (moles/volume)Ordered By: Eric Dooley on 04-03-2022 Sodium [Moles/Vol] 139 mmol/L 136-146 [facility] Comment on above: Delta: 133 on Serum or plasma sodium measu rement (moles/volume)Ordered By: Ari Aguero on 04-03-2022 Sodium [Moles/Vol] 133 mmol/L 136-146 [facility] Serum or plasma total biliru bin measurement (mass/volume)Ordered By: Eric Dooley on 04-03-2022 Bilirubin [Mass/Vol] 0.3 mg/dL 0.3-1.[address] [facility] Serum or plasma total carbon dioxide measurement (moles/volume)Ordered By: Ari Aguero on 04-03-2022 CO2 [Moles/Vol] 23.7 mmol/L 22.0-30.0 [facility] Serum or plasma urea nitroge n measurement (mass/volume)Ordered By: Ari Aguero on 04-03-2022 Urea nitrogen [Mass/Vol] 7 mg/dL 11-03 [facility] Specific gravity Auto test s trip (U) [Rel density]Ordered By: Eric Dooley on 04-03-2022 Specific gravity (U) [Rel density] 1.002 1.001-1.030 [facility] Urea nitrogen [Mass/volume] in Serum or PlasmaOrdered By: Eric Dooley on 04-03-2022 Urea nitrogen [Mass/Vol] 5 mg/dL 11-03 [facility] Urine clarity by refractomet ry automatedOrdered By: Eric Dooley on 04-03-2022 Clarity Refractometry automated (U) Clear Clear [facility] Urine cocaine detectionOrder ed By: Eric Dooley on 04-03-2022 Cocaine Ql (U) Negative Negative [facility] Urine glucose measurement by automated test strip (mass/volume)Ordered By: Eric Dooley on 04-03-2022 Glucose Auto test strip (U) [Mass/Vol] Normal mg/dL Normal [facility] Urine hemoglobin detection b y automated test stripOrdered By: Eric Dooley on 04-03-2022 Hemoglobin Auto test strip Ql (U) Negative Negative [facility] Urine leukocyte esterase det ection by automated test stripOrdered By: Eric Dooley on 04-03-2022 Leukocyte esterase Auto test strip Ql (U) Negative Negative [facility] Urobilinogen Auto test strip (U) [Mass/Vol]Ordered By: Eric Dooely on 04-03-2022 Urobilinogen (U) [Mass/Vol] Normal mg/dL Normal [facility] WBC Auto (Bld) [#/Vol]Ordere d By: Eric Dooley on 04-03-2022 WBC (Bld) [#/Vol] 8.3 10*3/uL 3.8-11.6 [facility] WBC Auto (Bld) [#/Vol]Ordere d By: Ari Aguero on 04-03-2022 WBC (Bld) [#/Vol] 7.0 10*3/uL 3.8-11.6 [facility] pH Auto test strip (U)Ordere d By: Eric Dooley on 04-03-2022 pH (U) 6.0 [pH] 5.0-9.0 [facility] Acetaminophenon 03-12-2022 Acetaminophen [Mass/Vol] ug/mL Low 10-30 [facility] Comment on above: Performed By: #### C DP, CP, MG, HCG, ACET, ALCB, SALI #### [facility] [address] [facility] [place] [place] [address] Chart Picker: Foreign Page DO Acetaminophen Levelon 2022 Acetaminophen Level <5 Low 10 - 30 ug/mL [facility] CBC with Auto Differentialon 03-12-2022 Absolute Eos # 0.10 [facility] [employer] Absolute Lymph # 3.70 [facility] [employer] Absolute Norman # 0.30 [facility] [employer] Basophils (Bld) [#/Vol] 0.10 10*3/uL [facility] Basophils/100 WBC (Bld) 1 % 0 - 2 % [facility] Eosinophils/100 WBC (Bld) 1 % 0 - 4 % [facility] Hematocrit (Bld) [Volume fraction] 40.5 % 36 - 46 % [facility] Hemoglobin (Bld) [Mass/Vol] 13.3 g/dL 12.0 - 16.0 g/dL [facility] Lymphocytes/100 WBC (Bld) 44 % 24 - 44 % [facility] MCH (RBC) [Entitic mass] 31.1 pg 26 - 34 pg [facility] MCHC (RBC) [Mass/Vol] 32.8 g/dL 31 - 37 g/dL [facility] MCV (RBC) [Entitic vol] 94.8 fL 80 - 100 fL [facility] Monocytes/100 WBC (Bld) 4 % 1 - 7 % [facility] Platelet distribution width (Bld) [Ratio] 13.3 % 11.5 - 14.9 % [facility] Platelet mean volume (Bld) [Entitic vol] 7.3 fL 6.0 - 12.0 fL [facility] Platelets (Bld) [#/Vol] 301 10*3/uL [facility] RBC (Bld) [#/Vol] 4.27 10*6/uL 4.0 - 5.2 m/uL [facility] Segmented neutrophils/100 WBC (Bld) 50 % 36 - 66 % [facility] Segs Absolute 4.20 [facility] WBC (Bld) [#/Vol] 8.3 10*3/uL [facility] CBC with Diffon 03-12-2022 Abs. Basophil 0.10 k/uL Normal 0.0-0.2 [facility] Comment on above: Performed By: #### C DP, CP, MG, HCG, ACET, ALCB, SALI #### [facility] [address] [place] [address] Chart Picker: Foreign Page DO Abs.Neutrophil (Seg) 4.20 k/uL Normal 1.3-9.1 [facility] Comment on above: Performed By: #### C DP, CP, MG, HCG, ACET, ALCB, SALI #### [facility] [address] [place] [address] Chart Picker: Foreign Page DO Basophils/100 WBC (Bld) 1 % Normal 0-2 [facility] Comment on above: Performed By: #### C DP, CP, MG, HCG, ACET, ALCB, SALI #### [facility] [address] [place] [address] Chart Picker: Foreign Page DO Eosinophils (Bld) [#/Vol] 0.10 10*3/uL Normal 0.0-0.4 [facility] Comment on above: Performed By: #### C DP, CP, MG, HCG, ACET, ALCB, SALI #### [facility] [address] [facility] [place] [address] Chart Picker: Foreign Page DO Eosinophils/100 WBC (Bld) 1 % Normal 0-4 [facility] Comment on above: Performed By: #### C DP, CP, MG, HCG, ACET, ALCB, SALI #### [facility] [address] [place] [address] Chart Picker: Foreign Page DO Erythrocyte distribution width (RBC) [Ratio] 13.3 % Normal 11.5-14.9 [facility] Comment on above: Performed By: #### C DP, CP, MG, HCG, ACET, ALCB, SALI #### [facility] [address] [facility] [place] [address] Chart Picker: Foreign Page DO Hematocrit (Bld) [Volume fraction] 40.5 % Normal 36-46 [facility] Comment on above: Performed By: #### C DP, CP, MG, HCG, ACET, ALCB, SALI #### [facility] [address] [place] [address] Chart Picker: Foreign Page DO Hemoglobin (Bld) [Mass/Vol] 13.3 g/dL Normal 12.0-16.0 [facility] Comment on above: Performed By: #### C DP, CP, MG, HCG, ACET, ALCB, SALI #### [facility] [address] [place] [address] Chart Picker: Foreign Page DO Lymphocytes (Bld) [#/Vol] 3.70 10*3/uL Normal 1.0-4.8 [facility] Comment on above: Performed By: #### C DP, CP, MG, HCG, ACET, ALCB, SALI #### [facility] [address] [place] [address] Chart Picker: Foreign Page DO Lymphocytes/100 WBC (Bld) 44 % Normal 24-44 [facility] Comment on above: Performed By: #### C DP, CP, MG, HCG, ACET, ALCB, SALI #### [facility] [address] [place] [address] Chart Picker: Foreign Page DO MCH (RBC) [Entitic mass] 31.1 pg Normal 26-34 [facility] Comment on above: Performed By: #### C DP, CP, MG, HCG, ACET, ALCB, SALI #### [facility] [place] [address] Chart Picker: Foreign Page DO MCHC (RBC) [Mass/Vol] 32.8 g/dL Normal 31-37 [facility] Comment on above: Performed By: #### C DP, CP, MG, HCG, ACET, ALCB, SALI #### [facility] [address] [place] [address] Chart Picker: Foreign Page DO MCV (RBC) [Entitic vol] 94.8 fL Normal 80-100 [facility] Comment on above: Performed By: #### C DP, CP, MG, HCG, ACET, ALCB, SALI #### [facility] [address] [place] [address] Chart Picker: Foreign Page DO Monocytes (Bld) [#/Vol] 0.30 10*3/uL Normal 0.1-1.3 [facility] Comment on above: Performed By: #### C DP, CP, MG, HCG, ACET, ALCB, SALI #### [facility] [address] [place] [address] Chart Picker: Foreign Page DO Monocytes/100 WBC (Bld) 4 % Normal 1-7 [facility] Comment on above: Performed By: #### C DP, CP, MG, HCG, ACET, ALCB, SALI #### [facility] [address] [facility] [place] [address] Chart Picker: Foreign Page DO Neutrophil (Seg) 50 % Normal 36-66 [facility] Comment on above: Performed By: #### C DP, CP, MG, HCG, ACET, ALCB, SALI #### [facility] [address] [facility] [address] Chart Picker: Foreign Page DO Platelet mean volume (Bld) [Entitic vol] 7.3 fL Normal 6.0-12.0 [facility] Comment on above: Performed By: #### C DP, CP, MG, HCG, ACET, ALCB, SALI #### [facility] [address] [place] [address] Chart Picker: Foreign Page DO Platelets (Bld) [#/Vol] 301 10*3/uL Normal 150-450 [facility] Comment on above: Performed By: #### C DP, CP, MG, HCG, ACET, ALCB, SALI #### [facility] [address] [place] [address] Chart Picker: Foreign Page DO RBC (Bld) [#/Vol] 4.27 10*6/uL Normal 4.0-5.2 [facility] Comment on above: Performed By: #### C DP, CP, MG, HCG, ACET, ALCB, SALI #### [facility] [address] [place] [address] Chart Picker: Foreign Page DO WBC (Bld) [#/Vol] 8.3 10*3/uL Normal 3.5-11.0 [facility] Comment on above: Performed By: #### C DP, CP, MG, HCG, ACET, ALCB, SALI #### [facility] [address] [place] [address] Chart Picker: Foreign Page DO CMPon 03-12-2022 Albumin [Mass/Vol] 3.6 g/dL 3.5 - 5.2 g/dL [facility] ALP (Bld) [Catalytic activity/Vol] 123 U/L High 35 - 104 U/L [facility] ALT [Catalytic activity/Vol] 78 U/L High 5 - 33 U/L [facility] Anion gap [Moles/Vol] 12 mmol/L 9 - 17 mmol/L [facility] AST [Catalytic activity/Vol] 143 U/L High NINF - 32 U/L [facility] Bilirubin [Mass/Vol] 0.2 mg/dL Low 0.3 - 1 .2 mg/dL [facility] Calcium [Mass/Vol] 8.5 mg/dL Low 8.6 - 10. 4 mg/dL [facility] Chloride [Moles/Vol] 105 mmol/L 98 - 10 7 mmol/L [facility] CO2 [Moles/Vol] 23 mmol/L 20 - 31 mmol/L [facility] Creatinine [Mass/Vol] 0.53 mg/dL 0.50 - 0.90 mg/dL [facility] GFR/1.73 sq M.predicted MDRD (S/P/Bld) [Vol rate/Area] - PINF [facility] Comment on above: These results are not [...] [Mass/Vol] 72 mg/dL 70 - 99 mg/dL [facility] Interpretation and review of laboratory results Abnormal [facility] Potassium [Moles/Vol] 3.8 mmol/L 3.7 - 5.3 mmol/L [facility] Protein [Mass/Vol] 7.8 g/dL 6.4 - 8.3 g/dL [facility] Sodium [Moles/Vol] 140 mmol/L 135 - 144 mmol/L [facility] Urea nitrogen (BldV) [Mass/Vol] 5 mg/dL Low 6 - 20 mg/dL [facility] HEAD WO CONTRASTon 2022 CT HEAD [...] Varun Hager MD 03/12/22 Final result Normal [facility] CT Head W/O Contraston 03-12 No acute intracrania l abnormality. [facility] EXAMINATION: CT OF THE HEAD WITHOUT CONTRAST 03/12/2022 3:18 pm TECHNIQUE: CT of the head was performed without the administration of intravenous contrast. Automated exposure control, iterative reconstruction, and/or weight based adjustment of the mA/kV was utilized to reduce the radiation dose to as low as reasonably achievable. COMPARISON: None. HISTORY: ORDERING SYSTEM PROVIDED HISTORY: ams TECHNOLOGIST PROVIDED HISTORY: [facility] Decision Support Exception - unselect if not [...] of the visualized skull or soft tissues. [facility] Varun Hager MD - 03/12/2022 EXAMINATION: [...] SYSTEM PROVIDED HISTORY: ams TECHNOLOGIST PROVIDED HISTORY: [facility] Decision Support Exception - unselect if not [...] soft tissues. IMPRESSION: No acute intracranial abnormality. [facility] [employer] Work Phone: Radiology Study observation (narrative) [facility] [employer] Phone: CT Head W/O ContrastOrdered By: Varun Hager on 03-12-2022 [facility] [employer] Phone: Comp Metabolic Profon 2022 Albumin [Mass/Vol] 3.6 g/dL Normal 3.5-5.2 [facility] Comment on above: Performed By: #### C DP, CP, MG, HCG, ACET, ALCB, SALI #### [facility] [address] [facility] [place] [place] [address] Chart Picker: Foreign Page DO Alkaline Phos 123 U/L High 35-104 [facility] Comment on above: Performed By: #### C DP, CP, MG, HCG, ACET, ALCB, SALI #### [facility] [address] [place] [address] Chart Picker: Foreign Page DO ALT [Catalytic activity/Vol] 78 U/L High 5-33 [facility] Comment on above: Performed By: #### C DP, CP, MG, HCG, ACET, ALCB, SALI #### [facility] [address] [place] [address] Chart Picker: Foreign Page DO Anion gap [Moles/Vol] 12 mmol/L Normal 9-17 [facility] Comment on above: Performed By: #### C DP, CP, MG, HCG, ACET, ALCB, SALI #### [facility] [address] [facility] [place] [place] [address] Chart Picker: Foreign Page DO AST [Catalytic activity/Vol] 143 U/L High <32 [facility] Comment on above: Performed By: #### C DP, CP, MG, HCG, ACET, ALCB, SALI #### [facility] [address] [place] [address] Chart Picker: Foreign Page DO Bilirubin [Mass/Vol] 0.2 mg/dL Low 0.3-1.2 [facility] Comment on above: Performed By: #### C DP, CP, MG, HCG, ACET, ALCB, SALI #### [facility] [address] [place] [address] Chart Picker: Foreign Page DO Calcium [Mass/Vol] 8.5 mg/dL Low 8.6-10.4 [facility] Comment on above: Performed By: #### C DP, CP, MG, HCG, ACET, ALCB, SALI #### [facility] [address] [place] [address] Chart Picker: Foreign Page DO Chloride [Moles/Vol] 105 mmol/L Normal 98-107 [facility] Comment on above: Performed By: #### C DP, CP, MG, HCG, ACET, ALCB, SALI #### [facility] [address] [place] [address] Chart Picker: Foreign Page DO CO2 [Moles/Vol] 23 mmol/L Normal 20-31 [facility] Comment on above: Performed By: #### C DP, CP, MG, HCG, ACET, ALCB, SALI #### [facility] [address] [place] [address] Chart Picker: Foreign Page DO Creatinine [Mass/Vol] 0.53 mg/dL Normal 0.50-0.90 [facility] Comment on above: Performed By: #### C DP, CP, MG, HCG, ACET, ALCB, SALI #### [facility] [address] [facility] [place] [place] [address] Chart Picker: Foreign Page DO GFR/1.73 sq M.predicted among non-blacks MDRD (S/P/Bld) [Vol rate/Area] mL/min/{1.73_m2} Normal >60 [facility] Comment on above: Result Comment: These results [...] CP, MG, HCG, ACET, ALCB, SALI #### [facility] [address] [facility] [place] [place] [address] Chart Picker: Foreign Page DO Glucose [Mass/Vol] 72 mg/dL Normal 70-99 [facility] Comment on above: Performed By: #### C DP, CP, MG, HCG, ACET, ALCB, SALI #### [facility] [address] [place] [address] Chart Picker: Foreign Page DO Potassium [Moles/Vol] 3.8 mmol/L Normal 3.7-5.3 [facility] Comment on above: Performed By: #### C DP, CP, MG, HCG, ACET, ALCB, SALI #### [facility] [address] [facility] [place] [place] [address] Chart Picker: Foreign Page DO Protein [Mass/Vol] 7.8 g/dL Normal 6.4-8.3 [facility] Comment on above: Performed By: #### C DP, CP, MG, HCG, ACET, ALCB, SALI #### [facility] [place] [address] Chart Picker: Foreign Page DO Sodium [Moles/Vol] 140 mmol/L Normal 135-144 [facility] Comment on above: Performed By: #### C DP, CP, MG, HCG, ACET, ALCB, SALI #### [facility] [address] [place] [address] Chart Picker: Foreign Page DO Urea nitrogen [Mass/Vol] 5 mg/dL Low 6-20 [facility] Comment on above: Performed By: #### C DP, CP, MG, HCG, ACET, ALCB, SALI #### [facility] [address] [place] [address] Chart Picker: Foreign Page DO Drug Scr, Abuse, Uron 2022 Amphetamine(s),Ur Negative Normal [facility] Comment on above: Result Comment: (Positive cutoff 1000 ng/mL) Performed By: #### U AX KAUSHAL #### [facility] [address] [place] [address] Chart Picker: Foreign Page DO Barbiturate(s),Ur Negative Normal [facility] Comment on above: Result Comment: (Positive cutoff 200 ng/mL) Performed By: #### U AX, KAUSHAL #### [facility] [address] [place] [address] Chart Picker: Foreign Page DO Benzodiazepine(s) Negative Normal [facility] Comment on above: Result Comment: (Positive cutoff 200 ng/mL) Performed By: #### U AX, KAUSHAL #### [facility] [address] [place] [address] Chart Picker: Fanelly, Foreign, DO Cannabinoid(s),Ur Negative Normal [facility] Comment on above: Result Comment: (Positive cutoff 50 ng/mL) Performed By: #### U AX, KAUSHAL #### [facility] [address] [place] [address] Chart Picker: Foreign Page DO Cocaine Metabolite Negative Normal NEG [facility] Comment on above: Result Comment: (Positive cutoff 300 ng/mL) Performed By: #### U AX, KAUSHAL #### [facility] [address] [place] [address] Chart Picker: Foreign Page DO Fentanyl, Urine Negative Normal [facility] Comment on above: Result Comment: (Positive cutoff 5 ng/ml) Performed By: #### U AX, KAUSHAL #### [facility] [address] [place] [address] Chart Picker: Foreign Page DO Interpretive Info Assay provides medic al screening only. The absence of expected drug(s) and/or Normal [facility] Comment on above: Result Comment: meta bolite(s) may indicate diluted or adulterated urine, limitations of testing or timing of collection. Testing for legal purposes should be confirmed by another method. To request confirmation of test result, please call the lab within 7 days of sample submission. Performed By: #### U AX, KAUSHAL #### [facility] [address] [place] [address] Chart Picker: Foerign Page DO Methadone Ql (U) Positive Abnormal [facility] Comment on above: Result Comment: (Positive cutoff 300 ng/mL) Performed By: #### U AX, KAUSHAL #### [facility] [address] [place] [address] Chart Picker: Foreign Page DO Opiate(s), Ur Negative Normal NEG [facility] Comment on above: Result Comment: (Positive cutoff 300 ng/mL) Performed By: #### U AX, KAUSHAL #### [facility] [address] [facility] [place] [place] [address] Chart Picker: Foreign Page DO Oxycodone, Urine Negative Normal [facility] Comment on above: Result Comment: (Positive cutoff 100 ng/mL) Performed By: #### U AX, KAUSHAL #### [facility] [address] [place] [address] Chart Picker: Foreign Page DO Phencyclidine, Ur Negative Normal [facility] Comment on above: Result Comment: (Positive cutoff 25 ng/mL) Performed By: #### U AX, KAUSHAL #### [facility] [address] [place] [address] Chart Picker: Foreign Page DO ETOHon 03-12-2022 Ethanol [Mass/Vol] 358 mg/dL Critically high NINF - 10 mg/dL [facility] Ethanol percent 0.358 % [facility] Ethanol Alcoholon 6 Ethanol [Mass/Vol] 358 mg/dL Critically high <10 [facility] Comment on above: Performed By: #### C DP, CP, MG, HCG, ACET, ALCB, SALI #### [facility] [address] [place] [address] Chart Picker: Foreign Page DO Ethanol percent 0.358 % [facility] Comment on above: Performed By: #### C DP, CP, MG, HCG, ACET, ALCB, SALI #### [facility] [address] [place] [address] Chart Picker: Foreign Page DO HCG Qualitative, Serumon 9 hCG Qual Negative NEGATIVE [facility] Comment on above: Specimens with hCG l evels near the threshold of the test (25 mIU/mL) may give a negative or indeterminate result. In such cases, another test should be performed with a new specimen in 48-72 hours. If early is suspected clinically in this setting, correlation with quantitative serum b-hCG level is suggested. [facility] HCG Screen, Bloodon 03-12-19 HCG Screen, Blood Negative Normal [facility] Comment on above: Result Comment: Spec [...] CP, MG, HCG, ACET, ALCB, SALI #### [facility] [address] [facility] [place] [address] Chart Picker: Foreign Page DO Magnesiumon 03-12-2022 Magnesium [Mass/Vol] 2.0 mg/dL Normal 1.6-2.6 [facility] Comment on above: Performed By: #### C DP, CP, MG, HCG, ACET, ALCB, SALI #### [facility] [address] [facility] [place] [address] Chart Picker: Foreign Page DO Magnesium [Mass/Vol] 2.0 mg/dL 1.6 - 2 .6 mg/dL [facility] No Panel Informationon 03-12 Interpretation and review of laboratory results Abnormal [facility] Salicylateon 03-12-2022 Salicylate <1 Low 3-10 [facility] Comment on above: Performed By: #### C DP, CP, MG, HCG, ACET, ALCB, SALI #### [facility] [address] [place] [address] Chart Picker: Foreign Page DO Salicylate Lvl mg/dL Low 3 - 10 mg/dL [facility] UA w/Reflex Cultureon 2022 Bilirubin, SemiQt,Ur Negative Normal NEG [facility] Comment on above: Performed By: #### U AX, KAUSHAL #### [facility] [place] [address] Chart Picker: Foreign Page DO Blood, Urine Negative Normal NEG [facility] Comment on above: Performed By: #### U AX, KAUSHAL #### [facility] [address] [place] [address] Chart Picker: Foreign Page DO Clarity (U) Clear Normal CLEAR [facility] Comment on above: Performed By: #### U AX, KAUSHAL #### [facility] [address] [place] [address] Chart Picker: Foreign Page DO Color (U) Yellow Normal YEL [facility] Comment on above: Performed By: #### U AX, KAUSHAL #### [facility] [address] [place] [address] Chart Picker: Foreign Page DO Comment Microscopic exam not performed based on chemical results unless requested in Normal [facility] Comment on above: Result Comment: orig inal order. Performed By: #### U AX, KAUSHAL #### [facility] [address] [place] [address] Chart Picker: Foreign Page DO Glucose Ql (U) Negative Normal NEG [facility] Comment on above: Performed By: #### U AX, KAUSHAL #### [facility] [address] [place] [address] Chart Picker: Foreign Page DO Ketones Ql (U) Negative Normal NEG [facility] Comment on above: Performed By: #### U AX, KAUSHAL #### [facility] [address] [place] [address] Chart Picker: Foreign Page DO Leukocyte esterase Test strip Ql (U) Negative Normal NEG [facility] Comment on above: Performed By: #### U AX, KAUSHAL #### [facility] [address] [place] [address] Chart Picker: Foreign Page DO Nitrite,Ur Negative Normal NEG [facility] Comment on above: Performed By: #### U AX, KAUSHAL #### [facility] [address] [place] [address] Chart Picker: Foreign Page DO PH,Ur 6.0 Normal 5.0-8.0 [facility] Comment on above: Performed By: #### U AX, KAUSHAL #### [facility] [address] [place] [address] Chart Picker: Foreign Page DO Protein Ql (U) Negative Normal NEG [facility] Comment on above: Performed By: #### U AX, KAUSHAL #### [facility] [address] [place] [address] Chart Picker: Foreign Page DO Spec. [place],Ur 1.009 Normal 1.000-1.030 [facility] Comment on above: Performed By: #### U AX, KAUSHAL #### [facility] [address] [place] [address] Chart Picker: Foreign Page DO Urobilinogen,Ur Normal Normal NORM [facility] Comment on above: Performed By: #### U AX, KAUSHAL #### [facility] [address] [place] [address] Chart Picker: Foreign Page DO Urinalysis with Reflex to Cu ltureon 03-12-2022 Bilirubin Urine Negative NEGATIVE [facility] Color, UA Yellow Yellow [facility] Glucose, Ur Negative NEGATIVE [facility] Ketones Ql (U) Negative NEGATIVE [facility] Leukocyte esterase Test strip Ql (U) Negative NEGATIVE [facility] Nitrite, Urine Negative NEGATIVE [facility] pH, UA 6.0 5.0 - 8.0 [facility] Protein, UA Negative NEGATIVE [facility] Specific [place], UA 1.009 1.000 - 1.030 [facility] Turbidity UA Clear Clear [facility] Urinalysis Comments Microscopic exam not performed based on chemical results unless requested in original order. [facility] Urine Hgb Negative NEGATIVE [facility] Urobilinogen, Urine Normal Normal [facility] Urine Drug Screenon 03-12-19 23 Amphetamine Screen, Ur Negative NEGATIVE [facility] Comment on above: (Positive cutoff 1000 ng/mL) Barbiturate Screen, Ur Negative NEGATIVE [facility] Comment on above: (Positive cutoff 200 ng/mL) Benzodiazepine Screen, Urine Negative NEGATIVE [facility] Comment on above: (Positive cutoff 200 ng/mL) Cannabinoid Scrn, Ur Negative NEGATIVE [facility] Comment on above: (Positive cutoff 50 ng/mL) Cocaine Metabolite, Urine Negative NEGATIVE [facility] Comment on above: (Positive cutoff 300 ng/mL) Fentanyl, Ur Negative NEGATIVE [facility] Comment on above: (Positive cutoff 5 ng/ml) Interpretation and review of laboratory results Abnormal [facility] Methadone Screen, Urine Positive Abnormal NEGATIVE [facility] Comment on above: (Positive cutoff 300 ng/mL) Opiates, Urine Negative NEGATIVE [facility] Comment on above: (Positive cutoff 300 ng/mL) Oxycodone Screen, Ur Negative NEGATIVE [facility] Comment on above: (Positive cutoff 100 ng/mL) Phencyclidine, Urine Negative NEGATIVE [facility] Comment on above: (Positive cutoff 25 ng/mL) Test Information Assay provides medic al screening only. The absence of expected drug(s) and/or metabolite(s) may indicate diluted or adulterated urine, limitations of testing or timing of collection. [facility] Comment on above: Testing for legal pu rposes should be confirmed by another method. To request confirmation of test result, please call the lab within 7 days of sample submission. [facility] Amphetamine Screen Ql (U)Ord ered By: Ari Aguero on 03-05-2022 Amphetamines Ql (U) Negative Negative [facility] Barbiturates [Presence] in U rineOrdered By: Ari Aguero on 03-05-2022 Barbiturates Ql (U) Negative Negative [facility] Basophils Auto (Bld) [#/Vol] Ordered By: Ari Aguero on 03-05-2022 Basophils (Bld) [#/Vol] 0.1 10*3/uL 0.0-0.2 [facility] Basophils/100 WBC Auto (Bld) Ordered By: Ari Aguero on 03-05-2022 Basophils/100 WBC (Bld) 0.6 % . [facility] Benzodiazepines [Presence] i n UrineOrdered By: Ari Aguero on 03-05-2022 Benzodiazepines Ql (U) Negative Negative [facility] Bilirubin Test strip Ql (U)O rdered By: Ari Aguero on 03-05-2022 Bilirubin Ql (U) Negative Negative [facility] Body fluid albumin measureme nt (mass/volume)Ordered By: Ari Aguero on 03-05-2022 Albumin (Body fld) [Mass/Vol] 3.3 g/dL 3.2-5.5 [facility] Cannabinoids [Presence] in U rine by Screen methodOrdered By: Ari Aguero on 03-05-2022 Cannabinoids Screen Ql (U) Negative Negative [facility] Comment on above: These are unconfirme d results and should not be used for legal purposes. Drug Cut-Off Concentration: AMPH 1000 ng/mL JANELL 200 ng/mL JAMES 200 ng/mL COCM 300 ng/mL OP 300 ng/mL PCP 25 ng/mL THC 20 ng/mL Color Auto (U)Ordered By: Robin Aguero on 03-05-2022 Color (U) Yellow Yellow [facility] Creatinine and Glomerular fi ltration rate.predicted panel (S/P/Bld)Ordered By: Ari Aguero on 03-05-2022 Creatinine [Mass/Vol] 0.50 mg/dL 0.44-1.03 [facility] Eosinophils Auto (Bld) [#/Vo l]Ordered By: Ari Aguero on 03-05-2022 Eosinophils (Bld) [#/Vol] 0.1 10*3/uL 0.0-0.45 [facility] Eosinophils/100 WBC Auto (Bl d)Ordered By: Ari Aguero on 03-05-2022 Eosinophils/100 WBC (Bld) 1.1 % . [facility] Erythrocyte distribution wid th Auto (RBC) [Ratio]Ordered By: Ari Aguero on 03-05-2022 Erythrocyte distribution width (RBC) [Ratio] 13.0 % 11.9-15.3 [facility] Estimated glomerular filtrat ion rate (GFR) non- AmericanOrdered By: Ari Aguero on 03-05-2022 GFR/1.73 sq M.predicted among non-blacks MDRD (S/P/Bld) [Vol rate/Area] > 60 mL/Min [facility] Globulin Calc (S) [Mass/Vol] Ordered By: Ari Aguero on 03-05-2022 Globulin (S) [Mass/Vol] 4.2 g/dL [facility] HCG ( test) IA.rapi d Ql (U)Ordered By: Ari Aguero on 03-05-2022 HCG ( test) Ql (U) Negative [facility] Hematocrit Auto (Bld) [Volum e fraction]Ordered By: Ari Aguero on 03-05-2022 Hematocrit (Bld) [Volume fraction] 42.0 % 34.0-46.4 [facility] Hemoglobin [Mass/volume] in BloodOrdered By: Ari Aguero on 03-05-2022 Hemoglobin (Bld) [Mass/Vol] 14.0 g/dL 11.8-15.4 [facility] Ketones Auto test strip (U) [Mass/Vol]Ordered By: Ari Aguero on 03-05-2022 Ketones (U) [Mass/Vol] Negative Negative [facility] Laboratory - Drug toxicology Ordered By: Ari Aguero on 03-05-2022 Opiates Ql (U) Negative Negative [facility] Leukocytes [#/volume] correc jose for nucleated erythrocytes in Blood by Automated counOrdered By: Ari Aguero on 03-05-2022 WBC corrected for nucl RBC Auto (Bld) [#/Vol] 11.6 10*3/uL 3.8-11.6 [facility] Lymphocytes Auto (Bld) [#/Vo l]Ordered By: Ari Aguero on 03-05-2022 Lymphocytes (Bld) [#/Vol] 3.2 10*3/uL 1.00-4.8 [facility] Lymphocytes/100 WBC Auto (Bl d)Ordered By: Ari Aguero on 03-05-2022 Lymphocytes/100 WBC (Bld) 27.3 % . [facility] MCH Auto (RBC) [Entitic mass ]Ordered By: Ari Aguero on 03-05-2022 MCH (RBC) [Entitic mass] 31.0 pg 24.7-34.3 [facility] MCHC Auto (RBC) [Mass/Vol]Or dered By: Ari Aguero on 03-05-2022 MCHC (RBC) [Mass/Vol] 33.3 g/dL 32.0-35.0 [facility] MCV Auto (RBC) [Entitic vol] Ordered By: Ari Aguero on 03-05-2022 MCV (RBC) [Entitic vol] 93.1 fL 80-100 [facility] Monocyte distribution width [Entitic volume] in Blood by AutomatedOrdered By: Ari Aguero on 03-05-2022 Monocyte distribution width Auto (Bld) [Entitic vol] 19.04 % 0.00-20.00 [facility] Monocytes Auto (Bld) [#/Vol] Ordered By: Ari Aguero on 03-05-2022 Monocytes (Bld) [#/Vol] 0.7 10*3/uL 0.0-0.8 [facility] Monocytes/100 WBC Auto (Bld) Ordered By: Ari Aguero on 03-05-2022 Monocytes/100 WBC (Bld) 5.9 % . [facility] Neutrophils Auto (Bld) [#/Vo l]Ordered By: Ari Aguero on 03-05-2022 Neutrophils (Bld) [#/Vol] 7.6 10*3/uL 1.8-7.7 [facility] Neutrophils/100 WBC Auto (Bl d)Ordered By: Ari Aguero on 03-05-2022 Neutrophils/100 WBC (Bld) 65.1 % . [facility] Nitrite Test strip Ql (U)Ord ered By: Ari Aguero on 03-05-2022 Nitrite Ql (U) Negative Negative [facility] No Panel InformationOrdered By: Ari Aguero on 03-05-2022 Estimated GFR () > 60 mL/Min [facility] Comment on above: GFR estimated refere nce range: According to KDOQI guidelines, <60 ml/min/1.73m2 is sufficient to diagnose a patient with chronic kidney disease. Pharmacy Creatinine Clearance (Chem 158.18 [facility] Nucleated erythrocytes [Pres ence] in Blood by Automated countOrdered By: Ari Aguero on 03-05-2022 Nucleated RBC Auto Ql (Bld) 0.1 /100{WBC} 0-0.5 [facility] Phencyclidine Screen Ql (U)O rdered By: Ari Aguero on 03-05-2022 Phencyclidine Ql (U) Negative Negative [facility] Platelet mean volume Auto (B ld) [Entitic vol]Ordered By: Ari Aguero on 03-05-2022 Platelet mean volume (Bld) [Entitic vol] 7.7 fL 6.3-10.7 [facility] Platelets Auto (Bld) [#/Vol] Ordered By: Ari Aguero on 03-05-2022 Platelets (Bld) [#/Vol] 277 10*3/uL 150-450 [facility] Protein Auto test strip (U) [Mass/Vol]Ordered By: Ari Aguero on 03-05-2022 Protein (U) [Mass/Vol] Negative Negative [facility] Protein [Mass/volume] in Ser um or PlasmaOrdered By: Ari Aguero on 03-05-2022 Protein [Mass/Vol] 7.5 g/dL 6.1-7.9 [facility] RBC Auto (Bld) [#/Vol]Ordere d By: Ari Aguero on 03-05-2022 RBC (Bld) [#/Vol] 4.51 10*6/uL 3.60-5.00 [facility] Serum or plasma alanine urbina otransferase measurement without P-5'-P (enzymatic activiOrdered By: Ari Aguero on 03-05-2022 ALT No additional P-5'-P [Catalytic activity/Vol] 106 U/L 10-60 [facility] Serum or plasma albumin/glob ulin mass ratioOrdered By: Ari Aguero on 03-05-2022 Albumin/Globulin [Mass ratio] 0.8 {ratio} [facility] Serum or plasma alkaline maya sphatase measurement (enzymatic activity/volume)Ordered By: Ari Aguero on 03-05-2022 ALP [Catalytic activity/Vol] 94 U/L 32-92 [facility] Serum or plasma anion gap de terminationOrdered By: Ari Aguero on 03-05-2022 Anion gap [Moles/Vol] 14.1 mmol/L 6.0-15.[address] [facility] Serum or plasma aspartate am inotransferase measurement (enzymatic activity/volume)Ordered By: Ari Aguero on 03-05-2022 AST [Catalytic activity/Vol] 146 U/L 10-42 [facility] Serum or plasma calcium judi urement (mass/volume)Ordered By: Ari Aguero on 03-05-2022 Calcium [Mass/Vol] 8.9 mg/dL 8.2-10.2 [facility] Serum or plasma chloride nataliia surement (moles/volume)Ordered By: Ari Aguero on 03-05-2022 Chloride [Moles/Vol] 105 mmol/L 95-[address] [facility] Serum or plasma ethanol judi urement (mass/volume)Ordered By: Ari Ageuro on 03-05-2022 Ethanol [Mass/Vol] 277 mg/dL [facility] Ethanol [Mass/Vol] 0.277 % [facility] Serum or plasma glucose judi urement (mass/volume)Ordered By: Ari Aguero on 03-05-2022 Glucose [Mass/Vol] 83 mg/dL 70-100 [facility] Comment on above: ADA recommended refe rence rangeRandom Glucose Reference Range is dependent on time and content of last meal. Glucose of more than 200 mg/dL in a nonstressed, ambulatory subject supports the diagnosis of Diabetes Mellitus. Serum or plasma potassium me asurement (moles/volume)Ordered By: Ari Aguero on 03-05-2022 Potassium [Moles/Vol] 3.7 mmol/L 3.5-5.1 [facility] Serum or plasma sodium measu rement (moles/volume)Ordered By: Ari Aguero on 03-05-2022 Sodium [Moles/Vol] 138 mmol/L 136-146 [facility] Serum or plasma total biliru bin measurement (mass/volume)Ordered By: Ari Aguero on 03-05-2022 Bilirubin [Mass/Vol] 0.4 mg/dL 0.3-1.[address] [facility] Serum or plasma total carbon dioxide measurement (moles/volume)Ordered By: Ari Aguero on 03-05-2022 CO2 [Moles/Vol] 22.6 mmol/L 22.0-30.0 [facility] Serum or plasma urea nitroge n measurement (mass/volume)Ordered By: Ari Aguero on 03-05-2022 Urea nitrogen [Mass/Vol] 3 mg/dL 9 [facility] Specific gravity Auto test s trip (U) [Rel density]Ordered By: Ari Aguero on 03-05-2022 Specific gravity (U) [Rel density] 1.008 1.001-1.030 [facility] Urine clarity by refractomet ry automatedOrdered By: Ari Aguero on 03-05-2022 Clarity Refractometry automated (U) Clear Clear [facility] Urine cocaine detectionOrder ed By: Ari Aguero on 03-05-2022 Cocaine Ql (U) Positive Negative [facility] Urine glucose measurement by automated test strip (mass/volume)Ordered By: Ari Aguero on 03-05-2022 Glucose Auto test strip (U) [Mass/Vol] Normal mg/dL Normal [facility] Urine hemoglobin detection b y automated test stripOrdered By: Ari Aguero on 03-05-2022 Hemoglobin Auto test strip Ql (U) Negative Negative [facility] Urine leukocyte esterase det ection by automated test stripOrdered By: Ari Aguero on 03-05-2022 Leukocyte esterase Auto test strip Ql (U) Negative Negative [facility] Urobilinogen Auto test strip (U) [Mass/Vol]Ordered By: Ari Aguero on 03-05-2022 Urobilinogen (U) [Mass/Vol] Normal mg/dL Normal [facility] WBC Auto (Bld) [#/Vol]Ordere d By: Ari Aguero on 03-05-2022 WBC (Bld) [#/Vol] 11.6 10*3/uL 3.8-11.6 [facility] pH Auto test strip (U)Ordere d By: Ari Aguero on 03-05-2022 pH (U) 5.5 [pH] 5.0-9.0 [facility] Amphetamine Screen Ql (U)Ord ered By: Declan Marina on 02-20-2022 Amphetamines Ql (U) Negative Negative [facility] Barbiturates [Presence] in U rineOrdered By: Declan Marina on 02-20-2022 Barbiturates Ql (U) Negative Negative [facility] Basophils Auto (Bld) [#/Vol] Ordered By: Declan Marina on 02-20-2022 Basophils (Bld) [#/Vol] 0.1 10*3/uL 0.0-0.2 [facility] Basophils/100 WBC Auto (Bld) Ordered By: Declan Marina on 02-20-2022 Basophils/100 WBC (Bld) 1.4 % . [facility] Benzodiazepines [Presence] i n UrineOrdered By: Declan Marina on 02-20-2022 Benzodiazepines Ql (U) Negative Negative [facility] Bilirubin Test strip Ql (U)O rdered By: Declan Marina on 02-20-2022 Bilirubin Ql (U) Negative Negative [facility] Body fluid albumin measureme nt (mass/volume)Ordered By: Declan Marina on 02-20-2022 Albumin (Body fld) [Mass/Vol] 3.8 g/dL 3.2-5.5 [facility] Cannabinoids [Presence] in U rine by Screen methodOrdered By: Declan Marina on 02-20-2022 Cannabinoids Screen Ql (U) Negative Negative [facility] Comment on above: These are unconfirme d results and should not be used for legal purposes. Drug Cut-Off Concentration: AMPH 1000 ng/mL JANELL 200 ng/mL JAMES 200 ng/mL COCM 300 ng/mL OP 300 ng/mL PCP 25 ng/mL THC 20 ng/mL Color Auto (U)Ordered By: Akiko Marina on 02-20-2022 Color (U) Yellow Yellow [facility] Creatinine and Glomerular fi ltration rate.predicted panel (S/P/Bld)Ordered By: Declan Marina on 02-20-2022 Creatinine [Mass/Vol] 0.57 mg/dL 0.44-1.03 [facility] Eosinophils Auto (Bld) [#/Vo l]Ordered By: Declan Marina on 02-20-2022 Eosinophils (Bld) [#/Vol] 0.1 10*3/uL 0.0-0.45 [facility] Eosinophils/100 WBC Auto (Bl d)Ordered By: Declan Marina on 02-20-2022 Eosinophils/100 WBC (Bld) 0.5 % . [facility] Erythrocyte distribution wid th Auto (RBC) [Ratio]Ordered By: Declan Marina on 02-20-2022 Erythrocyte distribution width (RBC) [Ratio] 12.8 % 11.9-15.3 [facility] Estimated glomerular filtrat ion rate (GFR) non- AmericanOrdered By: Declan Marina on 02-20-2022 GFR/1.73 sq M.predicted among non-blacks MDRD (S/P/Bld) [Vol rate/Area] > 60 mL/Min [facility] Globulin Calc (S) [Mass/Vol] Ordered By: Declan Marina on 02-20-2022 Globulin (S) [Mass/Vol] 3.3 g/dL [facility] HCG ( test) IA.rapi d Ql (U)Ordered By: Declan Marina on 02-20-2022 HCG ( test) Ql (U) Negative [facility] Hematocrit Auto (Bld) [Volum e fraction]Ordered By: Declan Marina on 02-20-2022 Hematocrit (Bld) [Volume fraction] 44.9 % 34.0-46.4 [facility] Hemoglobin [Mass/volume] in BloodOrdered By: Declan Marina on 02-20-2022 Hemoglobin (Bld) [Mass/Vol] 15.2 g/dL 11.8-15.4 [facility] Ketones Auto test strip (U) [Mass/Vol]Ordered By: Declan Marina on 02-20-2022 Ketones (U) [Mass/Vol] Negative Negative [facility] Laboratory - Drug toxicology Ordered By: Declan Marina on 02-20-2022 Opiates Ql (U) Negative Negative [facility] Leukocytes [#/volume] correc jose for nucleated erythrocytes in Blood by Automated counOrdered By: Declan Marina on 02-20-2022 WBC corrected for nucl RBC Auto (Bld) [#/Vol] 9.8 10*3/uL 3.8-11.6 [facility] Lymphocytes Auto (Bld) [#/Vo l]Ordered By: Declan Marina on 02-20-2022 Lymphocytes (Bld) [#/Vol] 3.0 10*3/uL 1.00-4.8 [facility] Lymphocytes/100 WBC Auto (Bl d)Ordered By: Declan Marina on 02-20-2022 Lymphocytes/100 WBC (Bld) 30.9 % . [facility] MCH Auto (RBC) [Entitic mass ]Ordered By: Declan Marina on 02-20-2022 MCH (RBC) [Entitic mass] 31.6 pg 24.7-34.3 [facility] MCHC Auto (RBC) [Mass/Vol]Or dered By: Declan Marina on 02-20-2022 MCHC (RBC) [Mass/Vol] 33.9 g/dL 32.0-35.0 [facility] MCV Auto (RBC) [Entitic vol] Ordered By: Declan Marina on 02-20-2022 MCV (RBC) [Entitic vol] 93.1 fL 80-100 [facility] Monocyte distribution width [Entitic volume] in Blood by AutomatedOrdered By: Declan Marina on 02-20-2022 Monocyte distribution width Auto (Bld) [Entitic vol] 15.19 % 0.00-20.00 [facility] Monocytes Auto (Bld) [#/Vol] Ordered By: Declan Marina on 02-20-2022 Monocytes (Bld) [#/Vol] 0.4 10*3/uL 0.0-0.8 [facility] Monocytes/100 WBC Auto (Bld) Ordered By: Declan Marina on 02-20-2022 Monocytes/100 WBC (Bld) 3.7 % . [facility] Neutrophils Auto (Bld) [#/Vo l]Ordered By: Declan Marina on 02-20-2022 Neutrophils (Bld) [#/Vol] 6.2 10*3/uL 1.8-7.7 [facility] Neutrophils/100 WBC Auto (Bl d)Ordered By: Declan Marina on 02-20-2022 Neutrophils/100 WBC (Bld) 63.5 % . [facility] Nitrite Test strip Ql (U)Ord ered By: Declan Mraina on 02-20-2022 Nitrite Ql (U) Negative Negative [facility] No Panel InformationOrdered By: Declan Marina on 02-20-2022 Estimated GFR () > 60 mL/Min [facility] Comment on above: GFR estimated refere nce range: According to KDOQI guidelines, <60 ml/min/1.73m2 is sufficient to diagnose a patient with chronic kidney disease. Pharmacy Creatinine Clearance (Chem 140.39 [facility] Nucleated erythrocytes [Pres ence] in Blood by Automated countOrdered By: Declan Marina on 02-20-2022 Nucleated RBC Auto Ql (Bld) 0.2 /100{WBC} 0-0.5 [facility] Phencyclidine Screen Ql (U)O rdered By: Declan Marina on 02-20-2022 Phencyclidine Ql (U) Negative Negative [facility] Platelet mean volume Auto (B ld) [Entitic vol]Ordered By: Declan Marina on 02-20-2022 Platelet mean volume (Bld) [Entitic vol] 7.8 fL 6.3-10.7 [facility] Platelets Auto (Bld) [#/Vol] Ordered By: Declan Marina on 02-20-2022 Platelets (Bld) [#/Vol] 219 10*3/uL 150-450 [facility] Protein Auto test strip (U) [Mass/Vol]Ordered By: Declan Marina on 02-20-2022 Protein (U) [Mass/Vol] Negative Negative [facility] Protein [Mass/volume] in Ser um or PlasmaOrdered By: Declan Marina on 02-20-2022 Protein [Mass/Vol] 7.1 g/dL 6.1-7.9 [facility] RBC Auto (Bld) [#/Vol]Ordere d By: Declan Marina on 02-20-2022 RBC (Bld) [#/Vol] 4.82 10*6/uL 3.60-5.00 [facility] Serum or plasma alanine urbina otransferase measurement without P-5'-P (enzymatic activiOrdered By: Declan Marina on 02-20-2022 ALT No additional P-5'-P [Catalytic activity/Vol] 141 U/L 1060 [facility] Serum or plasma albumin/glob ulin mass ratioOrdered By: Declan Marina on 02-20-2022 Albumin/Globulin [Mass ratio] 1.2 {ratio} [facility] Serum or plasma alkaline maya sphatase measurement (enzymatic activity/volume)Ordered By: Declan Marina on 02-20-2022 ALP [Catalytic activity/Vol] 84 U/L 32-92 [facility] Serum or plasma anion gap de terminationOrdered By: Declan Marina on 02-20-2022 Anion gap [Moles/Vol] 16.0 mmol/L 6.0-15.[address] [facility] Serum or plasma aspartate am inotransferase measurement (enzymatic activity/volume)Ordered By: Declan Marina on 02-20-2022 AST [Catalytic activity/Vol] 169 U/L 1042 [facility] Serum or plasma calcium judi urement (mass/volume)Ordered By: Declan Marina on 02-20-2022 Calcium [Mass/Vol] 8.5 mg/dL 8.2-10.2 [facility] Serum or plasma chloride nataliia surement (moles/volume)Ordered By: Declan Marina on 02-20-2022 Chloride [Moles/Vol] 103 mmol/L 95-[address] [facility] Serum or plasma ethanol judi urement (mass/volume)Ordered By: Declan Marina on 02-20-2022 Ethanol [Mass/Vol] 347 mg/dL [facility] Ethanol [Mass/Vol] 0.347 % [facility] Serum or plasma glucose judi urement (mass/volume)Ordered By: Declan Marina on 02-20-2022 Glucose [Mass/Vol] 76 mg/dL 70-100 [facility] Comment on above: ADA recommended refe rence rangeRandom Glucose Reference Range is dependent on time and content of last meal. Glucose of more than 200 mg/dL in a nonstressed, ambulatory subject supports the diagnosis of Diabetes Mellitus. Serum or plasma potassium me asurement (moles/volume)Ordered By: Declan Marina on 02-20-2022 Potassium [Moles/Vol] 3.6 mmol/L 3.5-5.1 [facility] Serum or plasma sodium measu rement (moles/volume)Ordered By: Declan Marina on 02-20-2022 Sodium [Moles/Vol] 140 mmol/L 136-146 [facility] Serum or plasma total biliru bin measurement (mass/volume)Ordered By: Declan Marina on 02-20-2022 Bilirubin [Mass/Vol] 0.5 mg/dL 0.3-1.[address] [facility] Serum or plasma total carbon dioxide measurement (moles/volume)Ordered By: Declan Marina on 02-20-2022 CO2 [Moles/Vol] 24.6 mmol/L 22.0-30.0 [facility] Serum or plasma urea nitroge n measurement (mass/volume)Ordered By: Declan Marina on 02-20-2022 Urea nitrogen [Mass/Vol] 2 mg/dL 9-23 [facility] Specific gravity Auto test s trip (U) [Rel density]Ordered By: Declan Marina on 02-20-2022 Specific gravity (U) [Rel density] 1.007 1.001-1.030 [facility] Urine clarity by refractomet ry automatedOrdered By: Declan Marina on 02-20-2022 Clarity Refractometry automated (U) Clear Clear [facility] Urine cocaine detectionOrder ed By: Declan Marina on 02-20-2022 Cocaine Ql (U) Negative Negative [facility] Urine glucose measurement by automated test strip (mass/volume)Ordered By: Declan Marina on 02-20-2022 Glucose Auto test strip (U) [Mass/Vol] Normal mg/dL Normal [facility] Urine hemoglobin detection b y automated test stripOrdered By: Declan Marina on 02-20-2022 Hemoglobin Auto test strip Ql (U) Negative Negative [facility] Urine leukocyte esterase det ection by automated test stripOrdered By: Declan Marina on 02-20-2022 Leukocyte esterase Auto test strip Ql (U) Negative Negative [facility] Urobilinogen Auto test strip (U) [Mass/Vol]Ordered By: Declan Marina on 02-20-2022 Urobilinogen (U) [Mass/Vol] Normal mg/dL Normal [facility] WBC Auto (Bld) [#/Vol]Ordere d By: Declan Marina on 02-20-2022 WBC (Bld) [#/Vol] 9.8 10*3/uL 3.8-11.6 [facility] pH Auto test strip (U)Ordere d By: Declan Marina on 02-20-2022 pH (U) 6.0 [pH] 5.0-9.0 [facility] CHEMISTRYOrdered By: SYSTEM SYSTEM on 07-26-2021 Albumin [...] rate/Area] mL/min/1.73 m2 Normal >=59mL/min/1 .73 m2 [facility] Chem S GFR/1.73 sq M.predicted among non-blacks MDRD (S/P/Bld) [Vol rate/Area] mL/min/1.73 m2 Normal >=59mL/min/1 .73 m2 [facility] Chem S Globulin (S) [Mass/Vol] 3.5 g/dL [...] [facility] Remisol HEMATOLOGYOrdered By: SYSTEM SYSTEM on 07-26-2021 [...] PM) Normal Negative [facility] UA Auto SS [place].plasma/Lithiu m.RBC (Bld) [Mass ratio] 0-3 /HPF Normal [...] Desc Clean Catch (07/26/21 8:33 PM) Normal [facility] UA Auto SS Urobilinogen Qn (U) [id number] {Surinder'U}/dL Normal 0.0 - 1.0 EU/dL [facility] UA Auto SS WBC Auto Ql (U) Negative (07/26/21 8:33 PM) Normal Negative [facility] UA Auto SS WBC LM.HPF (Urine sed) [#/Area] 0-5 /HPF Normal 0-5/HPF [facility] UA Auto SS CBC With Platelet and Differ entialon 05-31-2021 Abs Imm Granulocytes 0.01 E9/L Normal [facility] Absolute Basophils 0.02 E9/L Normal 0.00-0.20 [facility] Absolute Eosinophils 0.06 E9/L Normal 0.05-0.50 [facility] Absolute Lymphocytes 2.46 E9/L Normal 1.50-4.00 [facility] Absolute Monocytes 0.52 E9/L Normal 0.10-0.95 [facility] Absolute Neutrophils 3.85 E9/L Normal 1.80-7.30 [facility] Basophils/100 WBC (Bld) 0.3 % Normal 0.0-2.0 [facility] Eosinophils/100 WBC (Bld) 0.9 % Normal 0.0-6.0 [facility] Hematocrit (Bld) [Volume fraction] 42.1 % Normal 34.0-48.0 [facility] Hemoglobin (Bld) [Mass/Vol] 14.2 g/dL Normal 11.5-15.5 [facility] Imm Granulocytes 0.1 % Normal 0.0-5.0 [facility] Lymphocytes/100 WBC (Bld) 35.5 % Normal 20.0-42.0 [facility] MCH (RBC) [Entitic mass] 31.2 pg Normal 26.0-35.0 [facility] MCHC 33.7 % Normal 32.0-34.5 [facility] MCV (RBC) [Entitic vol] 92.5 fL Normal 80.0-99.9 [facility] Monocytes/100 WBC (Bld) 7.5 % Normal 2.0-12.0 [facility] Neutrophils/100 WBC (Bld) 55.7 % Normal 43.0-80.0 [facility] Platelet Count 240 E9/L Normal 130-450 [facility] Platelet mean volume (Bld) [Entitic vol] 10.1 fL Normal 7.0-12.0 [facility] RBC 4.55 E12/L Normal 3.50-5.50 [facility] RDW 12.3 fL Normal 11.5-15.0 [facility] WBC 6.9 E9/L Normal 4.5-11.5 [facility] CBC with Auto Differentialon 05-31-2021 Basophils (Bld) [#/Vol] 0.02 10*3/uL [facility] [employer] Basophils/100 WBC (Bld) 0.3 % 0.0 - 2.0 % [facility] [employer] Eosinophils Absolute 0.06 [facility] [employer] Eosinophils/100 WBC (Bld) 0.9 % 0.0 - 6.0 % [facility] Hematocrit (Bld) [Volume fraction] 42.1 % 34.0 - 48.0 % [facility] Hemoglobin.gastrointe stinal spec 1 Ql (Stl) 14.2 g/dL 11.5 - 15.5 g/dL [facility] [employer] Immature Granulocytes # 0.01 E9/L [facility] [employer] Immature granulocytes/100 WBC (Bld) 0.1 % 0.0 - 5.0 % [facility] Lymphocytes Absolute 2.46 [facility] [employer] Lymphocytes/100 WBC (Bld) 35.5 % 20.0 - 42.0 % [facility] [employer] MCH (RBC) [Entitic mass] 31.2 pg 26.0 - 35.0 pg [facility] MCHC (RBC) [Mass/Vol] 33.7 % 32.0 - 34.5 % [facility] MCV (RBC) [Entitic vol] 92.5 fL 80.0 - 99.9 fL [facility] [employer] Monocytes Absolute 0.52 [facility] Monocytes/100 WBC (Bld) 7.5 % 2.0 - 12.0 % [facility] Neutrophils Absolute 3.85 [facility] Neutrophils/100 WBC (Bld) 55.7 % 43.0 - 80.0 % [facility] Platelet distribution width (Bld) [Ratio] 12.3 fL 11.5 - 15.0 fL [facility] Platelet mean volume (Bld) [Entitic vol] 10.1 fL 7.0 - 12.0 fL [facility] Platelets (Bld) [#/Vol] 240 10*3/uL [facility] RBC (Bld) [#/Vol] 4.55 10*6/uL [facility] WBC (Bld) [#/Vol] 6.9 10*3/uL [facility] Comprehensive Metabolic Pane mary beth 05-31-2021 Albumin [Mass/Vol] 3.9 g/dL Normal 3.5-5.2 [facility] ALP [Catalytic activity/Vol] 85 U/L Normal 35-104 [facility] ALT [Catalytic activity/Vol] 53 U/L High 0-32 [facility] Anion gap [Moles/Vol] 9 mmol/L Normal 7-16 [facility] AST [Catalytic activity/Vol] 70 U/L High 0-31 [facility] Bilirubin [Mass/Vol] 0.2 mg/dL Normal 0.0-1.2 [facility] Calcium [Mass/Vol] 9.0 mg/dL Normal 8.6-10.2 [facility] Chloride [Moles/Vol] 104 mmol/L Normal 98-107 [facility] CO2 [Moles/Vol] 23 mmol/L Normal 22-29 [facility] Creatinine [Mass/Vol] 0.5 mg/dL Normal 0.5-1.0 [facility] GFR Calculated >60 Normal >=60 [facility] Comment on above: Result Comment: [employer]st justin Kidney Disease: less than 60 ml/min/1.73 sq.m. Kidney Failure: less than 15 ml/min/1.73 sq.m. Results valid for patients 18 years and older. GFR/1.73 sq M.predicted among blacks MDRD (S/P/Bld) [Vol rate/Area] mL/min/{1.73_m2} Normal [facility] Glucose [Mass/Vol] 91 mg/dL Normal 74-99 [facility] Potassium [Moles/Vol] 4.8 mmol/L Normal 3.5-5.0 [facility] Protein [Mass/Vol] 7.4 g/dL Normal 6.4-8.3 [facility] Sodium [Moles/Vol] 136 mmol/L Normal 132-146 [facility] Urea nitrogen [Mass/Vol] 6 mg/dL Normal 6-20 [facility] Albumin [Mass/Vol] 3.9 g/dL 3.5 - 5.2 g/dL [facility] ALP (Bld) [Catalytic activity/Vol] 85 U/L 35 - 104 U/L [facility] ALT [Catalytic activity/Vol] 53 U/L High 0 - 32 U/L [facility] [employer] Anion gap [Moles/Vol] 9 mmol/L 7 - 16 mmol/L [facility] AST [Catalytic activity/Vol] 70 U/L High 0 - 31 U/L [facility] [employer] Bilirubin [Mass/Vol] 0.2 mg/dL 0.0 - 1 .2 mg/dL [facility] Calcium [Mass/Vol] 9.0 mg/dL 8.6 - 10. 2 mg/dL [facility] Chloride [Moles/Vol] 104 mmol/L 98 - 10 7 mmol/L [facility] CO2 [Moles/Vol] 23 mmol/L 22 - 29 mmol/L [facility] Creatinine [Mass/Vol] 0.5 mg/dL 0.5 - 1.0 mg/dL [facility] Free PSA/Total PSA [Mass fraction] 7.4 g/dL 6.4 - 8.3 g/dL [facility] [employer] GFR >60 [facility] GFR Non- >60 >=60 mL/min/1.73 [facility] Comment on above: Chronic Kidney Disea se: less than 60 ml/min/1.73 sq.m. Kidney Failure: less than 15 ml/min/1.73 sq.m. Results valid for patients 18 years and older. Glucose [Mass/Vol] 91 mg/dL 74 - 99 mg/dL [facility] Interpretation and review of laboratory results Abnormal [facility] Potassium [Moles/Vol] 4.8 mmol/L 3.5 - 5.0 mmol/L [facility] Sodium [Moles/Vol] 136 mmol/L 132 - 146 mmol/L [facility] Urea nitrogen (BldV) [Mass/Vol] 6 mg/dL 6 - 20 mg/dL [facility] Lipid Panel Fastingon 2021 Cholesterol [Mass/Vol] 123 mg/dL Normal 0-199 [facility] HDL Cholesterol Fasting 30 mg/dL Normal >40 [facility] LDL Cholesterol (Calculated) Fasting 63 mg/dL Normal 0-99 [facility] Triglycerides Fasting 149 mg/dL Normal 0-149 [facility] VLDL Cholesterol (Calculated) Fasting 30 mg/dL Normal [facility] Lipid, Fastingon 05-31-2021 Cholesterol [Mass/Vol] 123 mg/dL 0 - 199 mg/dL [facility] Cholesterol in HDL [Mass/Vol] 30 mg/dL >40 [facility] Cholesterol in LDL [Mass/Vol] 63 mg/dL 0 - 99 mg/dL [facility] Cholesterol in VLDL [Mass/Vol] 30 mg/dL [facility] Triglyceride, Fasting 149 mg/dL 0 - 14 9 mg/dL [facility] Magnesiumon 05-31-2021 Magnesium [Mass/Vol] 1.8 mg/dL Normal 1.6-2.6 [facility] Magnesium [Mass/Vol] 1.8 mg/dL 1.6 - 2 .6 mg/dL [facility] No Panel Informationon 05-31 [facility] T4, Freeon 05-31-2021 Free T4 [Mass/Vol] 1.31 ng/dL 0.93 - 1. 70 ng/dL [facility] TSHon 05-31-2021 Interpretation and review of laboratory results Abnormal [facility] TSH Qn 0.141 m[IU]/L Low [facility] TSH w/out Reflexon TSH w/out Reflex 0.141 uIU/mL Low 0.270-4.200 [facility] Thyroxine Freeon 05-31-2021 Thyroxine Free 1.31 ng/dL Normal 0.93-1.70 [facility] Vitamin D 25 Hydroxyon 05-31 Vit D, 25-Hydroxy 33 ng/mL 30 - 100 ng/mL [facility] Comment on above: <20 ng/mL........... ..Deficient 20-30 ng/mL...........Insufficient 30-100 ng/mL..........Sufficient >100 ng/mL............Toxic [facility] Vitamin D, 25-hydroxyon 05-13 Vitamin D, 25-hydroxy 33 ng/mL Normal 30-100 [facility] Comment on above: Result Comment: <20 ng/mL.............Deficient 20-30 ng/mL...........Insufficient 30-100 ng/mL..........Sufficient >100 ng/mL............Toxic Basic Metab w/rfx MGon 05-03 (cont.) Normal [facility] Comment on above: Result Comment: Aver age GFR for 20-29 years old: 116 mL/min/1.73sq m Chronic Kidney Disease: <60 mL/min/1.73sq m Kidney failure: <15 mL/min/1.73sq m eGFR calculated using average adult body mass. Additional eGFR calculator available at: http://[email or web address].Tu Closet Mi Closet/multiple_crcl_2012.htm Performed By: #### T ROPI, HCG, BMPX, CDP #### [employer] [address] [place] [address] Chart Picker: Clark Segovia MD Anion gap [Moles/Vol] 12 mmol/L Normal 9-17 [facility] Comment on above: Performed By: #### T ROPI, HCG, BMPX, CDP #### [facility] [employer] [address] [place] [phone] Chart Picker: Clark Segovia MD Calcium [Mass/Vol] 9.2 mg/dL Normal 8.6-10.4 [facility] Comment on above: Performed By: #### T ROPI, HCG, BMPX, CDP #### [facility] [employer] [address] [place] [phone] Chart Picker: Clark Segovia MD Chloride [Moles/Vol] 102 mmol/L Normal 98-107 [facility] Comment on above: Performed By: #### T ROPI, HCG, BMPX, CDP #### [facility] [employer] [address] [place] [phone] Chart Picker: Clark Segovia MD CO2 [Moles/Vol] 24 mmol/L Normal 20-31 [facility] Comment on above: Performed By: #### T ROPI, HCG, BMPX, CDP #### [facility] [address] [place] [phone] Chart Picker: Clark Segovia MD Creatinine [Mass/Vol] 0.50 mg/dL Normal 0.50-0.90 [facility] Comment on above: Performed By: #### T ROPI, HCG, BMPX, CDP #### [facility] [employer] [address] [place] [phone] Chart Picker: Clark Segovia MD GFR, Amer >60 Normal >60 [facility] Comment on above: Performed By: #### T ROPI, HCG, BMPX, CDP #### [facility] [employer] [address] [place] [phone] Chart Picker: Clark Segovia MD GFR,non Amer >60 Normal >60 [facility] Comment on above: Performed By: #### T ROPI, HCG, BMPX, CDP #### [facility] [address] [place] [address] Chart Picker: Clark Segovia MD Glucose [Mass/Vol] 95 mg/dL Normal 70-99 [facility] Comment on above: Performed By: #### T ROPI, HCG, BMPX, CDP #### [facility] [address] [place] [address] Chart Picker: Clark Segovia MD Potassium [Moles/Vol] 3.8 mmol/L Normal 3.7-5.3 [facility] Comment on above: Performed By: #### T ROPI, HCG, BMPX, CDP #### [facility] [address] [place] [phone] Chart Picker: Clark Segovia MD Sodium [Moles/Vol] 138 mmol/L Normal 135-144 [facility] Comment on above: Performed By: #### T ROPI, HCG, BMPX, CDP #### [facility] [address] [place] [phone] Chart Picker: Clark Segovia MD Urea nitrogen [Mass/Vol] 4 mg/dL Low 6-20 [facility] Comment on above: Performed By: #### T ROPI, HCG, BMPX, CDP #### [facility] [address] [place] [address] [phone] Chart Picker: Clark Segovia MD Basic Metabolic Panel w/ Ref paresh to MGon 05-03-2021 Anion gap [Moles/Vol] 12 mmol/L 9 - 17 mmol/L [facility] Calcium [Mass/Vol] 9.2 mg/dL 8.6 - 10. 4 mg/dL [facility] Chloride [Moles/Vol] 102 mmol/L 98 - 10 7 mmol/L [facility] CO2 [Moles/Vol] 24 mmol/L 20 - 31 mmol/L [facility] Creatinine [Mass/Vol] 0.5 mg/dL 0.50 - 0.90 mg/dL [facility] GFR >60 >60 mL/min [facility] GFR Non- >60 >60 mL/min [facility] GFR/1.73 sq M.predicted MDRD (S/P/Bld) [Vol rate/Area] [facility] Comment on above: Average GFR for 20-2 9 years old: 116 mL/min/1.73sq m Chronic Kidney Disease: <60 mL/min/1.73sq m Kidney failure: <15 mL/min/1.73sq m eGFR calculated using average adult body mass. Additional eGFR calculator available at: http://www.Zipzoom/multiple_crcl_2012.htm Glucose [Mass/Vol] 95 mg/dL 70 - 99 mg/dL [facility] Interpretation and review of laboratory results Abnormal [facility] Potassium [Moles/Vol] 3.8 mmol/L 3.7 - 5.3 mmol/L [facility] Sodium [Moles/Vol] 138 mmol/L 135 - 144 mmol/L [facility] Urea nitrogen (BldV) [Mass/Vol] 4 mg/dL Low 6 - 20 mg/dL [facility] CBC with Auto Differentialon 05-03-2021 Absolute Eos # 0.12 [facility] th Absolute Immature Granulocyte <0.03 [facility] Absolute Lymph # 2.11 [facility] alth Absolute Norman # 0.86 [facility] lth Basophils (Bld) [#/Vol] 0.04 10*3/uL [facility] Basophils/100 WBC (Bld) 1 % 0 - 2 % [facility] Eosinophils/100 WBC (Bld) 1 % 1 - 4 % [facility] Hematocrit (Bld) [Volume fraction] 39.2 % 36.3 - 47.1 % [facility] Hemoglobin.gastrointe stinal spec 1 Ql (Stl) 13.6 g/dL 11.9 - 15.1 g/dL [facility] Immature granulocytes/100 WBC (Bld) 0 % 0 [facility] Lymphocytes/100 WBC (Bld) 25 % 24 - 43 % [facility] MCH (RBC) [Entitic mass] 32.4 pg 25.2 - 33.5 pg [facility] MCHC (RBC) [Mass/Vol] 34.7 g/dL 28.4 - 34.8 g/dL [facility] MCV (RBC) [Entitic vol] 93.3 fL 82.6 - 102.9 fL [facility] Monocytes/100 WBC (Bld) 10 % 3 - 12 % [facility] NRBC Automated 0.0 0.0 per 100 WBC [facility] Platelet distribution width (Bld) [Ratio] 12.4 % 11.8 - 14.4 % [facility] Platelet mean volume (Bld) [Entitic vol] 10.2 fL 8.1 - 13.5 fL [facility] Platelets (Bld) [#/Vol] 196 10*3/uL [facility] RBC (Bld) [#/Vol] 4.20 10*6/uL 3.95 - 5.1 1 m/uL [facility] Segmented neutrophils/100 WBC (Bld) 63 % 36 - 65 % [facility] Segs Absolute 5.36 [facility] ([facility]ld[facility] [#/Vol] 8.5 10*3/uL [facility] CBC with Diffon 05-03-2021 Abs. Basophil 0.04 k/uL Normal 0.00-0.20 [facility] Comment on above: Performed By: #### T ROPI, HCG, BMPX, CDP #### [facility] [address] [place] [address] Chart Picker: Clark Segovia MD Abs.Imm.Granulocyte <0.03 Normal 0.00-0.30 [facility] Comment on above: Performed By: #### T ROPI, HCG, BMPX, CDP #### [facility] [address] [place] [address] Chart Picker: Clark Segovia MD Abs.Neutrophil (Seg) 5.36 k/uL Normal 1.50-8.10 [facility] Comment on above: Performed By: #### T ROPI, HCG, BMPX, CDP #### [facility] [address] [place] [address] Chart Picker: Clark Segovia MD Basophils/100 WBC (Bld) 1 % Normal 0-2 [facility] Comment on above: Performed By: #### T ROPI, HCG, BMPX, CDP #### [facility] [address] [place] [phone] Chart Picker: Clark Segovia MD Eosinophils (Bld) [#/Vol] 0.12 10*3/uL Normal 0.00-0.44 [facility] Comment on above: Performed By: #### T ROPI, HCG, BMPX, CDP #### [facility] [address] [place] [phone] Chart Picker: Clark Segovia MD Eosinophils/100 WBC (Bld) 1 % Normal 1-4 [facility] Comment on above: Performed By: #### T ROPI, HCG, BMPX, CDP #### [facility] [address] [place] [phone] Chart Picker: Clark Segovia MD Erythrocyte distribution width (RBC) [Ratio] 12.4 % Normal 11.8-14.4 [facility] Comment on above: Performed By: #### T ROPI, HCG, BMPX, CDP #### [facility] [address] [place] [phone] Chart Picker: Clark eSgovia MD Hematocrit (Bld) [Volume fraction] 39.2 % Normal 36.3-47.1 [facility] Comment on above: Performed By: #### T ROPI, HCG, BMPX, CDP #### [facility] [address] [place] [phone] Chart Picker: Clark Segovia MD Hemoglobin (Bld) [Mass/Vol] 13.6 g/dL Normal 11.9-15.1 [facility] Comment on above: Performed By: #### T ROPI, HCG, BMPX, CDP #### [facility] [address] [place] [phone] Chart Picker: Clark Segovia MD Immature granulocytes/100 WBC (Bld) 0 % Normal 0 [facility] Comment on above: Performed By: #### T ROPI, HCG, BMPX, CDP #### [address] [address] Chart Picker: Clark Segovia MD Lymphocytes (Bld) [#/Vol] 2.11 10*3/uL Normal 1.10-3.70 [facility] Comment on above: Performed By: #### T ROPI, HCG, BMPX, CDP #### [address] [address] Chart Picker: Clark Segovia MD Lymphocytes/100 WBC (Bld) 25 % Normal 24-43 [facility] Comment on above: Performed By: #### T ROPI, HCG, BMPX, CDP #### [address] [address] Chart Picker: Clark Segovia MD MCH (RBC) [Entitic mass] 32.4 pg Normal 25.2-33.5 [facility] Comment on above: Performed By: #### T ROPI, HCG, BMPX, CDP #### [place] [address] Chart Picker: Clark Segovia MD MCHC (RBC) [Mass/Vol] 34.7 g/dL Normal 28.4-34.8 [facility] Comment on above: Performed By: #### T ROPI, HCG, BMPX, CDP #### [facility] [address] [place] [address] Chart Picker: Clark Segovia MD MCV (RBC) [Entitic vol] 93.3 fL Normal 82.6-102.9 [facility] Comment on above: Performed By: #### T ROPI, HCG, BMPX, CDP #### [address] [address] Chart Picker: Clark Segovia MD Monocytes (Bld) [#/Vol] 0.86 10*3/uL Normal 0.10-1.20 [facility] Comment on above: Performed By: #### T ROPI, HCG, BMPX, CDP #### [facility] [address] [place] [phone] Chart Picker: Clark Segovia MD Monocytes/100 WBC (Bld) 10 % Normal 3-12 [facility] Comment on above: Performed By: #### T ROPI, HCG, BMPX, CDP #### [facility] [address] [place] [phone] Chart Picker: Clark Segovia MD Neutrophil (Seg) 63 % Normal 36-65 [facility] Comment on above: Performed By: #### T ROPI, HCG, BMPX, CDP #### [facility] [address] [place] [phone] Chart Picker: Clark Segovia MD NRBC Automated 0.0 per 100 WBC Normal 0.0 [facility] Comment on above: Performed By: #### T ROPI, HCG, BMPX, CDP #### [facility] [address] [place] [phone] Chart Picker: Clark Segovia MD Platelet mean volume (Bld) [Entitic vol] 10.2 fL Normal 8.1-13.5 [facility] Comment on above: Performed By: #### T ROPI, HCG, BMPX, CDP #### [facility] [address] [place] [phone] Chart Picker: Clark Segovia MD Platelets (Bld) [#/Vol] 196 10*3/uL Normal 138-453 [facility] Comment on above: Performed By: #### T ROPI, HCG, BMPX, CDP #### [facility] [address] [place] [address] [phone] Chart Picker: Clark Segovia MD RBC (Bld) [#/Vol] 4.20 10*6/uL Normal 3.95-5.11 [facility] Comment on above: Performed By: #### T ROPI, HCG, BMPX, CDP #### [facility] [address] [place] [address] Chart Picker: Clark Segovia MD WBC (Bld) [#/Vol] 8.5 10*3/uL Normal 3.5-11.3 [facility] Comment on above: Performed By: #### T ROPI, HCG, BMPX, CDP #### [facility] [address] [place] [address] Chart Picker: Clark Segovia MD CT CHEST PULMONARY EMBOLISM [...] Merle Griffith MD 05/03/21 Final result Normal [facility] No evidence of pulmo nary embolism or acute pulmonary abnormality. RECOMMENDATIONS: Unavailable [facility] CONSOLIDATED EXAMINATION: CTA OF THE CHEST 05/03/2021 [...] No acute bone or soft tissue abnormality. [facility] CON[facility] Merle Griffith MD - 05/03/2021 [...] embolism or acute pulmonary abnormality. RECOMMENDATIONS: Unavailable [facility] Work Phone: Radiology Study observation (narrative) [employer] Phone: CT CHEST PULMONARY EMBOLISM W CONTRASTOrdered By: Merle Griffith on 05-03-2021 [employer] Phone: HCG Qualitative, Serumon hCG Qual Negative NEGATIVE [facility] Comment on above: Specimens with hCG l evels near the threshold of the test (25 mIU/mL) may give a negative or indeterminate result. In such cases, another test should be performed with a new specimen in 48-72 hours. If early is suspected clinically in this setting, correlation with quantitative serum b-hCG level is suggested. [facility] has confirmed the use of plasma for this test. This has not been cleared or approved by the U.S. Food and Drug Administration. The FDA has determined that such clearance is not necessary. [facility] HCG Screen, Bloodon 05-04-19 22 HCG Screen, Blood Negative Normal NEG [facility] Comment on above: Result Comment: Spec imens with hCG levels near the threshold of the test (25 mIU/mL) may give a negative or indeterminate result. In such cases, another test should be performed with a new specimen in 48-72 hours. If early is suspected clinically in this setting, correlation with quantitative serum b-hCG level is suggested. [facility] has confirmed the use of plasma for this test. This has not been cleared or approved by the U.S. Food and Drug Administration. The FDA has determined that such clearance is not necessary. Performed By: #### T ROPI, HCG, BMPX, CDP #### [facility] [address] [place] [address] Chart Picker: Clark Segovia MD No Panel Informationon 05-03 [facility] Troponinon 05-03-2021 Troponin, High Sens <6 Normal 0-14 [facility] Comment on above: Result Comment: High Sensitivity Troponin values cannot be compared with other Troponin methodologies. Patients with high levels of Biotin oral intake (i.e >5mg/day) may have falsely decreased Troponin levels. Samples collected within 8 hours of biotin intake may require additional information for diagnosis. Performed By: #### T ROPI, HCG, BMPX, CDP #### [facility] [place] [address] Chart Picker: Clark Segovia MD Troponin, High Sensitivity <6 0 - 14 ng/L [facility] Comment on above: High Sensitivity Troponin values cannot be compared with other Troponin methodologies. Patients with high levels of Biotin oral intake (i.e >5mg/day) may have falsely decreased Troponin levels. Samples collected within 8 hours of biotin intake may require additional information for diagnosis. .eGFRon 02-06-2021 eGFR AA >60 Normal >=60 [facility] Comment on above: Order Comment: Order added by Discern rule Result Comment: See comment. Performed By: #### E GFR #### [address] [address] eGFR Non-AA >60 Normal >=60 [facility] Comment on above: Order Comment: Order [...] years Performed By: #### E GFR #### [facility] [address] CBCon 02-06-2021 Erythrocyte distribution width (RBC) [Ratio] 14.6 % Normal 11.6-14.8 [facility] Comment on above: Performed By: #### C BC #### [address] [address] Hematocrit (Bld) [Volume fraction] 36.6 % Normal 36.0-46.0 [facility] Comment on above: Performed By: #### C BC #### [address] [address] Hemoglobin (Bld) [Mass/Vol] 12.9 g/dL Normal 12.0-16.0 [facility] Comment on above: Performed By: #### C BC #### [address] [address] MCH (RBC) [Entitic mass] 32.3 pg Normal 27.0-35.0 [facility] Comment on above: Performed By: #### C BC #### [address] [address] MCHC 35.2 % Normal 31.0-37.0 [facility] Comment on above: Performed By: #### C BC #### [address] [address] MCV (RBC) [Entitic vol] 91.7 fL Normal 80.0-100.0 [facility] Comment on above: Performed By: #### C BC #### [address] [address] Platelet 168 x10*3/mcL Normal 150-350 [facility] Comment on above: Performed By: #### C BC #### [address] [address] Platelet mean volume (Bld) [Entitic vol] 8.2 fL Normal 6.7-10.6 [facility] Comment on above: Performed By: #### C BC #### [address] [address] RBC 3.99 x10*6/mcL Normal 3.80-5.20 [facility] Comment on above: Performed By: #### C BC #### [address] [address] WBC 5.6 x10*3/mcL Normal 4.5-11.0 [facility] Comment on above: Performed By: #### C BC #### [address] [address] CMPon 02-06-2021 Albumin [Mass/Vol] 3.4 g/dL Normal 3.2-4.9 [facility] Comment on above: Performed By: #### A LC #### [address] [address] Albumin/Globulin [Mass ratio] 1.1 {ratio} Normal 1.1-2.2 [facility] Comment on above: Performed By: #### A LC #### [address] [address] Alk Phos 68 IU/L Normal 32-91 [facility] Comment on above: Performed By: #### A LC #### [address] [address] ALT [Catalytic activity/Vol] 309 U/L High 14-54 [facility] Comment on above: Performed By: #### A LC #### [address] [address] Anion gap [Moles/Vol] 13 mmol/L Normal 7-17 [facility] Comment on above: Performed By: #### A LC #### [address] [address] AST [Catalytic activity/Vol] 392 U/L High 15-41 [facility] Comment on above: Performed By: #### A LC #### [address] [address] Bili Total 0.7 mg/dL Normal 0.3-1.2 [facility] Comment on above: Performed By: #### A LC #### [address] [address] Calcium [Mass/Vol] 8.2 mg/dL Low 8.5-10.3 [facility] Comment on above: Performed By: #### A LC #### [address] [address] Chloride [Moles/Vol] 107 mmol/L Normal 98-110 [facility] Comment on above: Performed By: #### A LC #### [address] [address] CO2 [Moles/Vol] 24 mmol/L Normal 22-32 [facility] Comment on above: Performed By: #### A LC #### [address] [address] Creatinine [Mass/Vol] 0.58 mg/dL Normal 0.44-1.03 [facility] Comment on above: Performed By: #### A LC #### [address] [address] Glucose [Mass/Vol] 84 mg/dL Normal 70-99 [facility] Comment on above: Performed By: #### A LC #### [address] [address] Potassium [Moles/Vol] 3.9 mmol/L Normal 3.4-4.8 [facility] Comment on above: Performed By: #### A LC #### [address] [address] Protein [Mass/Vol] 6.4 g/dL Low 6.5-8.1 [facility] Comment on above: Performed By: #### A LC #### [address] [address] Sodium [Moles/Vol] 140 mmol/L Normal 133-142 [facility] Comment on above: Performed By: #### A LC #### [address] [address] Urea nitrogen [Mass/Vol] 13 mg/dL Normal 8-26 [facility] Comment on above: Performed By: #### A LC #### [address] [address] Urea nitrogen/Creatinine [Mass ratio] 22.4 mg/mg High 10.0-20.0 [facility] Comment on above: Performed By: #### A LC #### [address] [address] Ethanolon 02-06-2021 Ethanol, Plasma 124 mg/dL High <=9 [facility] Comment on above: Result Comment: To c onvert mg/dL to g/dL, divide result by 1,000. Legal limit of intoxication is 80 mg/dL (0.08 g/dL). Performed By: #### A LC #### [address] [address] Hep Func Panelon 02-06-2021 Albumin [Mass/Vol] 3.3 g/dL Normal 3.2-4.9 [facility] Comment on above: Performed By: #### C [id number] #### [address] [address] Alk Phos 68 IU/L Normal 32-91 [facility] Comment on above: Performed By: #### C [id number] #### [address] [address] ALT [Catalytic activity/Vol] 308 U/L High 14-54 [facility] Comment on above: Performed By: #### C [id number] #### [address] [address] AST [Catalytic activity/Vol] 404 U/L High 15-41 [facility] Comment on above: Performed By: #### C [id number] #### [address] [address] Bili Direct 0.1 mg/dL Normal 0.1-0.5 [facility] Comment on above: Performed By: #### C [id number] #### [address] [address] Bili Indirect 0.8 mg/dL Normal 0.0-1.0 [facility] Comment on above: Performed By: #### C [id number] #### [address] [address] Bili Total 0.9 mg/dL Normal 0.3-1.2 [facility] Comment on above: Performed By: #### C [id number] #### [address] [address] Protein [Mass/Vol] 6.3 g/dL Low 6.5-8.1 [facility] Comment on above: Performed By: #### C [id number] #### [address] [address] Hgb A1con 02-06-2021 Glucose [Mass/Vol] 117 mg/dL High 68-114 [facility] Comment on above: Result Comment: Math ematical Calc approx. The mean gluc equivalency of A1c Performed By: #### C [id number] #### [address] [address] Hgb A1c 5.7 % A1c High 4.0-5.6 [facility] Comment on above: Result Comment: Refe rence Range: 4.0 - 5.6 % Normal 5.7 - 6.4 % Pre-Diabetes > 6.5 % Diabetes Performed By: #### C [id number] #### [address] [address] Inpatient Clinical Summaryon 02-06-2021 Inpatient Clinical Summary [address] [address] [address] [address] Clinical Summary Person Information Name: Lyle Bailey Age: 31 Years : 1990 Sex: Female PCP: Marital Status: Single PCP: Race: White Ethnicity: Not or Language: Mongolian Visit Id: Visit Reason: Alcohol withdrawal Speciality: Acuity: Enc Type: Inpatient Med Service: Emergency Medicine Arrival: 02/05/2021 16:34:16 Discharge: Dispo Type: Admitted as Inpatient Address: [facility] [facility] [address] Diagnosis: 1:Alcohol intoxication; 2:Alcohol dependence; 3:Schizo-affective type [...] range between ( 27.2 and 40.8 ) Norman Auto: 5.1 % -- Normal range between ( 3.7 and 11.9 ) Eos Auto: 0.6 % -- Normal range between ( 0.0 and 5.4 ) Basophil Auto: 0.4 % -- Normal range between ( 0.0 and 1.5 ) Baso Absolute: 0.0 x10 Lymph Absolute: 4.5 x10 Norman Absolute: 0.6 x10 Neutro Absolute: 6.1 x10 [...] Negative ng/ (more content not included)... Normal [facility] MRSA, PCRon 02-06-2021 Methicillin Resistant Staph aurus(MRSA) Negative Normal [facility] Comment on above: Result Comment: The Dynamic Organic Light Xpert MRSA Assay is a qualitative in [...] clinician. Performed By: #### A LC #### [address] [address] PTon 02-06-2021 INR Coag (PPP) [Relative time] 1.0 {INR} Normal <=3.5 [facility] Comment on above: Result Comment: INR has no normal range. INR Therapeutic range is: 2.0-3.0 (AF, CVA, TIAs, DVT prophylaxis, acute DVT) 2.5-3.5 (Mech heart valves, recurrent thrombosis/emboli) Performed By: #### C BC #### [address] [address] PT Coag (PPP) [Time] 10.5 s Normal 9.4-12.1 [facility] Comment on above: Performed By: #### C BC #### [address] [address] PTTon 02-06-2021 aPTT Coag (Bld) [Time] 23.3 s Normal 20.2-27.0 [facility] Comment on above: Performed By: #### A LC #### [address] [address] Phosphoruson 02-06-2021 Phosphate [Mass/Vol] 3.2 mg/dL Normal 2.5-4.6 [facility] Comment on above: Performed By: #### C [id number] #### [address] [address] Progress Note-Nurseon 2020 Progress Note-Nurse Dr. Arnold was at bedside explained potential symptoms and problems that may occur after leaving while going [facility]. Patient states she is going to go to an outpatient program. Patient wants to be discharged. Electronically signed by _ LongMartha 02/06/21 15:10 EST Normal [facility] Progress Note-Nurse Patient asked about her gabapentin and stated she wants to go home. provider notified about her request. Electronically signed by _ LongMartha 02/06/21 14:30 EST Normal [facility] Progress Note-Nurse Patient still sleepy , will answer question. Electronically signed by _ LongMartha 02/06/21 09:09 EST Normal [facility] TSHon 02-06-2021 TSH Qn 2.49 m[IU]/L Normal 0.45-5.33 [facility] Comment on above: Result Comment: Refe rence Ranges for individuals from to 18 years of age were obtained from The [employer] Handbook (20 ed) published by [facility]. Reference Ranges for Females: Females, 1st Trimester 0.05 ? 3.7 uIU/mL Females, 2nd Trimester 0.31 ? 4.35 uIU/mL Females, 3rd Trimester 0.41 ? 5.18 uIU/mL Performed By: #### C [id number] #### [facility] [address] [place] [address] Total T4on 02-06-2021 T4 [Mass/Vol] 5.7 ug/dL Normal 5.0-11.5 [facility] Comment on above: Performed By: #### C [id number] #### [address] [address] .Fentanyl Scrn wo Conf,Uron 02-05-2021 Ur Fentanyl Scrn Negative Normal NEG <1.0 [facility] Comment on above: Performed By: #### C BC #### [address] [address] Ur Fentanyl Scrn Qnt 0.15 ng/mL Normal <=0.99 [facility] Comment on above: Performed By: #### C BC #### [address] [address] .eGFRon 02-05-2021 eGFR AA >60 Normal >=60 [facility] Comment on above: Result Comment: See comment. Performed By: #### A LC #### [address] [address] eGFR Non-AA >60 Normal >=60 [facility] Comment on above: Result Comment: Stag [...] years Performed By: #### A LC #### [address] [address] Amylaseon 02-05-2021 Amylase [Catalytic activity/Vol] 121 U/L High 28-100 [facility] Comment on above: Performed By: #### A LC #### [address] [address] B12/Folate Lvlon 02-05-2021 Cobalamin (Vitamin B12) [Mass/Vol] 406 pg/mL Normal 180-914 [facility] Comment on above: Performed By: #### C [id number] #### [address] [address] Folate Lvl 10.5 ng/mL Normal >=5.9 [facility] Comment on above: Result Comment: A WH O Technical Consultation has determined that deficient Folate concentrations are considered to be less than 4 ng/mL. Performed By: #### C [id number] #### [address] [address] CBC w/ Diffon 02-05-2021 Erythrocyte distribution width (RBC) [Ratio] 14.3 % Normal 11.6-14.8 [facility] Comment on above: Performed By: #### C BC #### [address] [address] Hematocrit (Bld) [Volume fraction] 39.4 % Normal 36.0-46.0 [facility] Comment on above: Performed By: #### C BC #### [address] [address] Hemoglobin (Bld) [Mass/Vol] 13.8 g/dL Normal 12.0-16.0 [facility] Comment on above: Performed By: #### C BC #### [address] [address] MCH (RBC) [Entitic mass] 31.9 pg Normal 27.0-35.0 [facility] Comment on above: Performed By: #### C BC #### [address] [address] MCHC 34.9 % Normal 31.0-37.0 [facility] Comment on above: Performed By: #### C BC #### [address] [address] MCV (RBC) [Entitic vol] 91.2 fL Normal 80.0-100.0 [facility] Comment on above: Performed By: #### C BC #### [address] [address] Platelet 199 x10*3/mcL Normal 150-350 [facility] Comment on above: Performed By: #### C BC #### [address] [address] Platelet mean volume (Bld) [Entitic vol] 8.2 fL Normal 6.7-10.6 [facility] Comment on above: Performed By: #### C BC #### [address] [address] RBC 4.32 x10*6/mcL Normal 3.80-5.20 [facility] Comment on above: Performed By: #### C BC #### [address] [address] WBC 11.2 x10*3/mcL High 4.5-11.0 [facility] Comment on above: Performed By: #### C BC #### [address] [address] CMPon 02-05-2021 Albumin [Mass/Vol] 4.1 g/dL Normal 3.2-4.9 [facility] Comment on above: Performed By: #### C [id number] #### [address] [address] Albumin/Globulin [Mass ratio] 1.1 {ratio} Normal 1.1-2.2 [facility] Comment on above: Performed By: #### C [id number] #### [address] [address] Alk Phos 79 IU/L Normal 32-91 [facility] Comment on above: Performed By: #### C D:[id number] #### [address] [address] ALT [Catalytic activity/Vol] 320 U/L High 14-54 [facility] Comment on above: Performed By: #### C D:[id number] #### [address] [address] Anion gap [Moles/Vol] 14 mmol/L Normal 7-17 [facility] Comment on above: Performed By: #### C D:[id number] #### [address] [address] AST [Catalytic activity/Vol] 431 U/L High 15-41 [facility] Comment on above: Performed By: #### C [id number] #### [address] [address] Bili Total 0.4 mg/dL Normal 0.3-1.2 [facility] Comment on above: Performed By: #### C D:[id number] #### [address] [address] Calcium [Mass/Vol] 9.5 mg/dL Normal 8.5-10.3 [facility] Comment on above: Performed By: #### C [id number] #### [address] [address] Chloride [Moles/Vol] 105 mmol/L Normal 98-110 [facility] Comment on above: Performed By: #### C [id number] #### [address] [address] CO2 [Moles/Vol] 25 mmol/L Normal 22-32 [facility] Comment on above: Performed By: #### C D:[id number] #### [address] [address] Creatinine [Mass/Vol] 0.64 mg/dL Normal 0.44-1.03 [facility] Comment on above: Performed By: #### C D:[id number] #### [address] [address] Glucose [Mass/Vol] 103 mg/dL High 70-99 [facility] Comment on above: Performed By: #### C D:[id number] #### [address] [address] Potassium [Moles/Vol] 3.9 mmol/L Normal 3.4-4.8 [facility] Comment on above: Performed By: #### C D:[id number] #### [address] [address] Protein [Mass/Vol] 7.7 g/dL Normal 6.5-8.1 [facility] Comment on above: Performed By: #### C D:[id number] #### [address] [address] Sodium [Moles/Vol] 140 mmol/L Normal 133-142 [facility] Comment on above: Performed By: #### C D:[id number] #### [address] [address] Urea nitrogen [Mass/Vol] 13 mg/dL Normal 8- [facility] Comment on above: Performed By: #### C D:[id number] #### [address] [address] Urea nitrogen/Creatinine [Mass ratio] 20.3 mg/mg High 10.0-20.0 [facility] Comment on above: Performed By: #### C D:[id number] #### [address] [address] COV19 Rapidon 02-05-2021 Employed in healthcare? No Normal [facility] Comment on above: Performed By: #### A LC #### [address] [address] Group care resident? No Normal [facility] Comment on above: Performed By: #### A LC #### [address] [address] In ICU? Yes Normal [facility] Comment on above: Performed By: #### A LC #### [address] [place] [address] status? Not Normal [facility] Comment on above: Performed By: #### A LC #### [address] [address] Reason for Rapid Test Inpatient Normal [facility] Comment on above: Performed By: #### A LC #### [address] [address] SARS-CoV-2 (COVID-19) RNA MOISES+probe Ql (Unsp spec) Negative Normal Negative [facility] Comment on above: Result Comment: The [...] using the ID NOW COVID-19 test by [employer], which has received Emergency Use Authorization (EUA) [...] following links: Fact Sheet for HealthCare Providers: https://www.fda.gov/media/633331/download Fact Sheet for Patients: https://www.fda.gov/media/080041/download Performed By: #### A LC #### [address] [address] SARS-CoV-2 (COVID-19) RNA MOISES+probe Ql (Unsp spec) No Normal [facility] Comment on above: Performed By: #### A LC #### [address] [address] SARS-CoV-2 (COVID-19) RNA MOISES+probe Ql (Unsp spec) Unknown Normal [facility] Comment on above: Performed By: #### A LC #### [address] [address] Symptomatic as defined by CDC? No Normal [facility] Comment on above: Performed By: #### A LC #### [address] [address] Diff Autoon 02-05-2021 Baso Absolute 0.0 x10*3/mcL Normal 0.0-0.2 [facility] Comment on above: Performed By: #### C BC #### [address] [address] Basophils/100 WBC (Bld) 0.4 % Normal 0.0-1.5 [facility] Comment on above: Performed By: #### C BC #### [address] [address] Eos Absolute 0.1 x10*3/mcL Normal 0.0-0.4 [facility] Comment on above: Performed By: #### C BC #### [address] [address] Eosinophils/100 WBC (Bld) 0.6 % Normal 0.0-5.4 [facility] Comment on above: Performed By: #### C BC #### [address] [address] Lymph Absolute 4.5 x10*3/mcL Normal 1.0-4.8 [facility] Comment on above: Performed By: #### C BC #### [address] [address] Lymphocytes/100 WBC (Bld) 39.7 % Normal 27.2-40.8 [facility] Comment on above: Performed By: #### C BC #### [address] [address] Norman Absolute 0.6 x10*3/mcL Normal 0.1-1.1 [facility] Comment on above: Performed By: #### C BC #### [place] [id number] Monocytes/100 WBC (Bld) 5.1 % Normal 3.7-11.9 [facility] Comment on above: Performed By: #### C BC #### [place] [id number] Neutro Absolute 6.1 x10*3/mcL Normal 1.8-7.7 [facility] Comment on above: Performed By: #### C BC #### [place] [address] Neutro Auto 54.2 % Normal 47.2-70.8 [facility] Comment on above: Performed By: #### C BC #### [place] [id number] ED Clinical Summaryon 2020 ED Clinical Summary (Inserted Image. Tracy ble to display) [place] [address] ED Clinical Summary Person Information Name: Lyle Bailey/[facility] Age: 31 Years : 1990 Sex: Female PCP: Marital Status: Single Race: White Ethnicity: Not or Language: Mongolian Visit Reason: Alcohol intoxication; Alcohol withdrawal Acuity: 3 Enc Type: Inpatient Med Service: Emergency Medicine Arrival: 02/05/2021 16:34:16 Discharge: LOS: 000 03:06 Checkin: 02/05/2021 16:34:16 Checkout: 02/05/2021 19:40:07 Dispo Type: Admitted as Inpatient Address: [address] [place], [place] [id number] Provider Notes: History of Present Illness Patient [...] in this document, created by the medical case manager for me, accurately reflects the services I [...] range between ( 27.2 and 40.8 ) Norman Auto: 5.1 % -- Normal range between ( 3.7 and 11.9 ) Eos Auto: 0.6 % (more content not included)... Normal [facility] ED Note-Physicianon 02-06-20 ED Note-Physician Chief [...] in this document, created by the medical case manager for me, accurately reflects the services I [...] patient?s conditi (more content not included)... Normal [facility] Ethanolon 02-05-2021 Ethanol, Plasma 509 mg/dL Critically abnormal <=9 [facility] Comment on above: Result Comment: Test completion time: 1746 Called date and time: 02/05/2021 17:47:12 EST Result called to and read back by: Michelle PATEL RN (First, Last, Title, Location) To convert mg/dL to g/dL, divide result by 1,000. Legal limit of intoxication is 80 mg/dL (0.08 g/dL). Performed By: #### A LC #### [address] [address] Lipaseon 02-05-2021 Lipase Lvl 118 IU/L High 22-51 [facility] Comment on above: Performed By: #### C D:[id number] #### [address] [address] Magnesiumon 02-05-2021 Magnesium [Mass/Vol] 2.2 mg/dL Normal 1.7-2.4 [facility] Comment on above: Performed By: #### C D:[id number] #### [address] [address] PTon 02-05-2021 INR Coag (PPP) [Relative time] 0.9 {INR} Normal <=3.5 [facility] Comment on above: Result Comment: INR has no normal range. INR Therapeutic range is: 2.0-3.0 (AF, CVA, TIAs, DVT prophylaxis, acute DVT) 2.5-3.5 ([facility] heart valves, recurrent thrombosis/emboli) Performed By: #### A LC #### [address] [address] PT Coag (PPP) [Time] 10.0 s Normal 9.4-12.1 [facility] Comment on above: Performed By: #### A LC #### [address] [address] PTTon 02-05-2021 aPTT Coag (Bld) [Time] 23.2 s Normal 20.2-27.0 [facility] Comment on above: Performed By: #### C D:[id number] #### [address] [address] UDS Compon 02-05-2021 Ur Amph Scrn Negative Normal NEG = <1000 [facility] Comment on above: Performed By: #### C D:[id number] #### [address] [address] Ur Janell Scrn Negative Normal NEG = <200 [facility] Comment on above: Performed By: #### C D:[id number] #### [address] [address] Ur Benzodia Scrn Negative Normal NEG = <200 [facility] Comment on above: Performed By: #### C D:[id number] #### [address] [address] Ur Cannab Scrn Negative Normal NEG = <50 [facility] Comment on above: Performed By: #### C D:[id number] #### [address] [address] Ur Cocaine Scrn Negative Normal NEG = <300 [facility] Comment on above: Performed By: #### C D:[id number] #### [address] [address] Ur Creatinine Tox Scrn <10.0 Normal [facility] Comment on above: Performed By: #### C D:[id number] #### [address] [place] [address] Ur Methadone Scn Negative Normal NEG = <300 [facility] Comment on above: Performed By: #### C D:[id number] #### [address] [place] [address] Ur Opiate Scrn Negative Normal NEG = <300 [facility] Comment on above: Performed By: #### C D:[id number] #### [address] [place] [address] Ur Oxy Screen Negative Normal NEG = <100 [facility] Comment on above: Performed By: #### C D:[id number] #### [address] [address] Ur Oxy Scrn Qnt 0 ng/mL Normal <=99 [facility] Comment on above: Performed By: #### C D:[id number] #### [address] [address] Ur PCP Scrn Negative Normal NEG = <25 [facility] Comment on above: Performed By: #### C D:[id number] #### [address] [address] UA pH 5.0 Normal 4.5 - 7.8 [facility] Comment on above: Performed By: #### C D:[id number] #### [address] [address] UA Spec Grav 1.003 Normal 1.003-1.035 [facility] Comment on above: Performed By: #### C D:[id number] #### [address] [address] HSV BY PCR QUAL SKIN/MUCOSA LESIONon 09-25-2020 HSV-1 SKIN/MUCOSA Not detected Normal Not Detected [facility] Comment on above: Performed By: #### C OV19 #### [facility] [address] [place] [address] HSV-2 SKIN/MUCOSA Not detected Normal Not Detected [facility] Comment on above: Result Comment: The HSV [...] Performed By: #### C OV19 #### [facility] [address] [place] [address] HSV BY PCR QUAL SKIN/MUCOSA LESIONon 09-24-2020 Lab Specimen Source Mucosa, Mouth Normal [facility] Comment on above: Performed By: #### C OV19 #### [facility] [address] [place] [address] HSV-1 SKIN/MUCOSA Canceled Normal [facility] Comment on above: Order Comment: TEST HSV BY PCR QUAL SKIN/MUCOSA LESION WAS CANCELLED, 09/24/2020 11:12 Performed By: #### H SVSS #### [facility] [address] [place] [address] HSV-2 SKIN/MUCOSA Canceled Normal [facility] Comment on above: Order Comment: TEST HSV [...] Performed By: #### H SVSS #### [facility] [address] [place] [address] GC + CHLAMYDIA BY AMPLIFIED DETECTIONon 09-23-2020 CHLAMYDIA TRACH.,AMPLIFIED Negative Normal Negative [facility] Comment on above: Result Comment: The APTIMA Combo 2 assay is FDA-approved for Chlamydia trachomatis and Neisseria gonorrhoeae testing on female endocervical and vaginal swabs, ThinPrep liquid pap samples, male urine samples and urethral swabs. Performance characteristics for Chlamydia trachomatis and Neisseria gonorrhoeae testing on specific kvn-FZU-ujzskttp sample types (female urine samples) have been validated by [facility]. This laboratory is certified by CLIA to perform high complexity testing. Samples from all other sites are not validated for this method. Performed By: #### [facility] #### [facility] [address] [place] [address] N.GONORRHEA,AMPLIFIED Negative Normal Negative [facility] Comment on above: Result Comment: The APTIMA Combo 2 assay is FDA-approved for Chlamydia trachomatis and Neisseria gonorrhoeae testing on female endocervical and vaginal swabs, ThinPrep liquid pap samples, male urine samples and urethral swabs. Performance characteristics for Chlamydia trachomatis and Neisseria gonorrhoeae testing on specific jmc-OSI-aphjtrpi sample types (female urine samples) have been validated by [facility]. This laboratory is certified by CLIA to perform high complexity testing. Samples from all other sites are not validated for this method. Performed By: #### [facility] #### [facility] [address] [place] [address] GC + CHLAMYDIA BY AMPLIFIED DETECTIONon 09-22-2020 Lab Specimen Source Throat Normal [facility] Comment on above: Performed By: #### [facility] #### [facility] [address] [place] [address] HSV BY PCR QUAL SKIN/MUCOSA LESIONon 09-22-2020 Lab Specimen Source Mucosa, Mouth Normal [facility] Comment on above: Order Comment: TEST HSV BY PCR QUAL SKIN/MUCOSA LESION WAS CANCELLED, 09/24/2020 11:12 Performed By: #### [facility] #### [facility] [address] [place] [address] Provider Note - ED v3on 09-11 Provider [...] YEAR Additional Notes:03/2019 Description:TOOTH EXTRACTION Social/Behavioral Description:depression TRAP SETTER: Is : no Is : no REVIEW [...] SIGNS: T PRBP SpO2O2(LPM) %FiO2 Method 22-Sep-2020 17:10:[id number]/99 97 MDM MDM/ED COURSE: Rx for nystatin [...] Electronic Signatures for Addendum Section: Leann Hall ([facility]) (Signed Addendum 27-Sep-2020 10:06) Spoke with patient and advised her of -HSV1 and -HSV2 test results. Pt verbalized understanding. Electronic Signatures: Chilo Glover ([facility]) (Signed 23-Sep-2020 09:16) Authored: ED Notes, HPI, PMH, ROS, PE, Results/Vital Signs, MDM/ED Course, Clinical Impression, Attestation, Chart Review, Scores Leann Hall ([facility]) (Signature Pending) Authored: Chart Review, Scores Last Updated: 27-Sep-2020 10:06 by Leann Hall ([facility]) Normal [facility] *VAGINITIS DNA PROBEon 09-05 *VAGINITIS DNA PROBE Clinical Report: (D ) Specimen: GENITAL Collected: 09/05/2020 15:45 Status: Final Last Updated: 09/06/2020 09:20 MELVIN (Final) Negative AFTAB (Final) Positive TRICH (Final) Negative Normal [facility] Comment on above: Performed By: #### 3 8502 #### [facility] [address] CHLAMYDIA/GONORRHEA BY TMAon 09-05-2020 CHLAMYDIA BY TMA Negative Normal NEGATIVE [facility] Comment on above: Result Comment: No C hlamydia trachomatis rRNA Detected. Performed By: #### 3 0867 #### [facility] [address] GONORRHEA BY TMA Negative Normal NEGATIVE [facility] Comment on above: Result Comment: No Neisseria gonorrhoeae rRNA Detected. The Aptima Combo 2 Assay is a FDA approved target amplification nucleic acid probe test that utilizes target capture for the in vitro qualitative detection and differentiation of ribosomal RNA (rRNA) from Chlamydia trachomatis (CT) and/or Neisseria gonorrhoeae (GC) to aid the diagnosis of chlamydial and/or gonococcal urogenital disease using the [place] System. The Aptima Combo2 Assay involves: target capture; target amplification by Associate Professor Of Literature-Mediated Amplification (TMA); and detection of the amplification products (amplicon) by the Hybridization Protection Assay (HPA). The internal process controls of the [place] System monitor the target capture, amplification, and detection steps of the assay, this is NOT intended to control for sampling adequacy. Performed By: #### 3 1627 #### [address] HPV HIGH RISK BY TMAon 09-05 HPV DEFAULT Please refer to the [facility] (Pap test) report for HPV test results. Normal [facility] Comment on above: Order Comment: [id number] Performed By: #### 3 1633 #### [address] Office Visit (Internal Medic ine)on 06-02-2020 [...] depression; LISA = N; Verified Transmission to [place] [address]; Last Updated By: Tommy [employer]Path; 06/02/2020 8:33:07 AM Generalized anxiety disorder with panic attacks Renew: busPIRone HCl - 10 MG Oral Tablet; TAKE 1-2 TABLETS 3 times daily PRN Rx By: Nini Wolf; Dispense: 30 Days ; #:180 Tablet; Refill: 0;For: Generalized anxiety disorder with panic attacks; LISA = N; Verified Transmission to [facility] 1448; Last Updated By: Tommy [employer]; 06/02/2020 8:33:11 AM Nausea in adult Start: Ondansetron 4 MG Oral Tablet Disintegrating; TAKE 1 TABLET 3 times daily PRN nausea Rx By: Nini Wolf; Dispense: 0 Days ; #:30 Tablet; Refill: 0;For: Nausea in adult; LISA = N; Verified Transmission to [place] [address]; Last Updated By: Paco [employer]; 06/02/2020 8:39:25 AM Restless legs syndrome Start: rOPINIRole HCl - 0.5 MG Oral Tablet; TAKE 1 TABLET Bedtime Rx By: Nini Wolf; Dispense: 30 Days ; #:30 Tablet; Refill: 0;For: Restless legs syndrome; LISA = N; Verified Transmission to [place] [address]; Last Updated By: Paco [employer]; 06/02/2020 8:38:03 AM Patient Discussion/Summary F/U 2 [...] TIME. DO TO TECHNICAL DIFFICULTIES WITH THE [employer], THIS VIRTUAL VISIT WAS FINISHED VIA [...] DUE TO COVID-19 (CORONAVIRUS) [facility]. SHE WAS SEEN ON 05/25/20 FOR AN INTENTIONAL DRUG OVER DOSE. SHE WAS DRINKING ALCOHOL AND TOOK 60 400 MG GABAPENTIN. SHE WAS TRANSFERRED TO IN PATIENT FACILITY. SHE WAS [facility]ENTLY IN [facility] ON 05/09/20. modifying factors consists of SHE IS SEEING [facility] COUNSELLING BUT UNABLE TO SEE A PROVIDER UNTIL [...] weight loss (more content not included)... Normal [facility] Office Visit (Internal Medic ine)on 05-17-2020 [...] attacks; LISA = N; Verified Transmission to [facility]; Last Updated By: System, Medi[employer]acon; 05/17/2020 1:30:14 PM Patient Discussion/Summary F/U BEFORE [...] DUE TO COVID-19 (CORONAVIRUS) Presents today for [facility] F/U. SHE WAS SEEN AT THE [facility] IN [place], [place] ON 05/09/20 FOR SUICIDAL IDEATION AND WAS KEPT OVER NIGHT FOR OBSERVATION. SHE WAS STILL SUICIDAL WITH A PLAN TO TAKE A BOTTLE OF PILLS ON 05/10/20 SO SHE WAS TRANSFERRED TO [facility] FOR AN IN PATIENT STAY FROM 05/10/20 - 05/14/20. SEVERAL MED CHANGES APPLIED, INCLUDING HER GABAPENTIN WHICH WAS CHANGED FROM 400 MG QID, TO 600 MG TID. SHE WAS SEEING NEL CRUZ, CAREER SPECIALIST OUT OF [facility]. SHE LAST SEEN HER ON 04/14/20, BUT SHE DOES NOT WANT TO RETURN TO HER. SHE STATES THEY DO NOT GET ALONG . SHE IS SEEING [facility] COUNSELING AND WILL BE ABLE TO SHE [...] in sk (more content not included)... Normal [facility] CORONAVIRUS 2019 BY PCRon SARS-CoV-2 (COVID-19) RNA MOISES+probe Ql (Unsp spec) Not detected Normal Not Detected [facility] Comment on above: Result Comment: . [...] patient management decisions. Fact sheet for providers: https://www.fda.gov/media/893951/download Fact sheet for patients: https://www.fda.gov/media/710984/download This test has received FDA Emergency Use Authorization (EUA) and has been verified by [facility] ([facility]). This test is only authorized for the duration of time that circumstances exist to justify the authorization of the emergency use of in vitro diagnostic tests for the detection of SARS-CoV-2 virus and/or diagnosis of COVID-19 infection under section 564(b)(1) of the Act, 21 U.S.C. 360bbb-3(b)(1), unless the authorization is terminated or revoked sooner. [facility] is certified under CLIA-88 as qualified to perform high complexity testing. Testing is performed in the [facility] laboratories located at [address] [place] [address]. Performed By: #### C OV19 #### [place] [address] [place] [address] Covid 19 Resultson 1 SARS-CoV-2 (COVID-19) RNA [...] You may also be contacted by the [facility] to see if any of your [...] or Naproxen (Aleve) can also be used. Bogn-qkv-gfadgxl cough and cold medicines can be used according to the instructions on the package. Some zsmr-bdz-sqqtqhj medicines also contain acetaminophen. Make sure you [...] water are not available, use alcohol-based hand shaft tender. Avoid touching your eyes, nose, and mouth [...] like ibuprofen (Motrin) (more content not included)... [facility] CORONAVIRUS 2019 BY PCRon DATE OF SYMPTOM ONSET [[id number]]? [id number] [facility] Comment on above: Performed By: #### C OV19 #### [facility] [address] [place] [address] Lab Specimen Source Nasal, Nasopharyngeal [facility] Comment on above: Performed By: #### C OV19 #### [facility] [address] [place] [address] Provider Note - ED v2on 03-15 Provider [...] YEAR Additional Notes:03/2019 Description:TOOTH EXTRACTION Social/Behavioral Description:depression TRAP SETTER: Is : no Is : no Order [...] SIGNS: T PRBP SpO2O2(LPM) %FiO2 Method 04-Apr-2020 12:27:[id number]/88 97 PHYSICAL EXAM CONSTITUTIONAL: Appearance: well appearing [...] this a (more content not included)... Normal [facility] Provider Note - ED v2on Provider [...] was given a couple of days of [place] and ibuprofen 600, she was also given a prescription for amoxicillin. She states she is out of the [place], and has been taking ibuprofen regularly and [...] YEAR Additional Notes:03/2019 Description:TOOTH EXTRACTION Social/Behavioral Description:depression TRAP SETTER: Is : no Is : no REVIEW [...] SIGNS: T PRBP SpO2O2(LPM) %FiO2 Method 22-Mar-2020 13:54:00-36.993604/79 99 PHYSICAL EXAM CONSTITUTIONAL: Appearance: well appearing [...] Electronic S (more content not included)... Normal [facility] Office Visit (Internal Medic ine)on 03-15-2020 Follow-up visit Diagnoses/Problems Assessed Bipolar depression (296.50) (F31.9) Generalized anxiety disorder with panic attacks (300.02,300.01) (F41.1,F41.0) Orders Bipolar depression Start: ARIPiprazole 10 MG Oral Tablet (Abilify); TAKE 1 TABLET DAILY Rx By: Nini Wolf; Dispense: 90 Days ; #:90 Tablet; Refill: 0;For: Bipolar depression; LISA = N; Verified Transmission to [facility]; Last Updated By: [email or web address]; 03/15/2020 8:37:14 AM Start: LORazepam 0.5 MG Oral Tablet; TAKE 1 TABLET Twice daily PRN anxiety Rx By: Nini Wolf; Dispense: 30 Days ; #:60 Tablet; Refill: 0;For: Bipolar depression; LISA = N; Verified Transmission to [facility] 1448; Msg to Pharmacy: [facility] REVIEWED. VOID SCRIPT 30 DAYS AFTER WRITTEN DATE; Last Updated By: [email or web address]; 03/15/2020 8:37:12 AM Patient Discussion/Summary F/U BEFORE FAX 2 WORK EXCUSE/LETTER TO [phone] Provider Impressions SHE IS REQUESTING A LETTER [...] consent was requested and obtained from LYLE WHITLEYNER on this date, 03/15/2020 08:20 AM , [...] COVID-19 (CORONAVIRUS) Presents today for F/U [facility] ER VISIT ON 03/11/20 AND [facility] [facility] ER ON 03/13/20 BOTH FOR PANIC ATTACK. [...] skin lumps. (more content not included)... Normal [facility] ACUTE TOXICOLOGY PANEL, BLOO Don 03-14-2020 Acetaminophen [Mass/Vol] ug/mL Normal 10.0 - 30.0 [facility] Comment on above: Performed By: #### D RUBL #### [address] [address] Ethanol [Mass/Vol] 214 mg/dL Abnormal [facility] Comment on above: Result Comment: FOR MEDICAL USE ONLY. . REF VALUES <10 Performed By: #### D RUBL #### [address] [address] SALICYLATE <3 Normal 4 - 20 [facility] Comment on above: Performed By: #### D RUBL #### [address] [address] Acetaminophen [Mass/Vol] <10.0 See Below [facility] Work Phone: Comment on above: Reference Range: 10. 0 - 30.0 Ordering Provider: Briseida GONZALEZ [address] Ethanol [Mass/Vol] 214 mg/dL Abnormal [facility] Work Phone: Comment on above: FOR MEDICAL USE ONLY . .REF VALUES <10 Ordering Provider: Briseida GONZALEZ [address] Salicylates [Mass/Vol] mg/dL 4 - 20 [facility] Work Phone: Comment on above: Ordering Provider: Briseida GONZALEZ [address]29[address] ALCOHOLon 03-14-2020 Ethanol [Mass/Vol] 93 mg/dL Abnormal [facility] Comment on above: Result Comment: FOR MEDICAL USE ONLY. . REF VALUES <10 Performed By: #### C OV19 #### [facility] [address] [place] [address] Alcohol, Serumon 03-14-2020 Ethanol [Mass/Vol] 93 mg/dL Abnormal [facility] Work Phone: Comment on above: FOR MEDICAL USE ONLY . .REF VALUES <10 Ordering Provider: Briseida GONZALEZ 97[address] BASIC METABOLIC PANELon Anion gap [Moles/Vol] 15 mmol/L Normal 10 - 20 [facility] Comment on above: Performed By: #### B MP #### [address] [address] Calcium [Mass/Vol] 9.3 mg/dL Normal 8.6 - 10.3 [facility] Comment on above: Performed By: #### B MP #### [address] [address] Chloride [Moles/Vol] 108 mmol/L High 98 - 107 [facility] Comment on above: Performed By: #### B MP #### [address] [address] Creatinine [Mass/Vol] 0.56 mg/dL Normal 0.50 - 1.05 [facility] Comment on above: Performed By: #### B MP #### [address] [address] GFR- AM. >60 Normal >60 [facility] Comment on above: Result Comment: CALC ULATIONS OF ESTIMATED GFR ARE PERFORMED USING THE MDRD STUDY EQUATION FOR THE IDMS-TRACEABLE CREATININE METHODS. CLIN CHEM 2007;53:766-72 Performed By: #### B MP #### [place] [id number] GFR-NON AM. >60 Normal >60 [facility] Comment on above: Performed By: #### B MP #### [address] [address] Glucose [Mass/Vol] 111 mg/dL High 74 - 99 [facility] Comment on above: Performed By: #### B MP #### [address] [address] HCO3 (Bld) [Moles/Vol] 21 mmol/L Normal 21 - 32 [facility] Comment on above: Performed By: #### B MP #### [address] [address] Potassium [Moles/Vol] 3.9 mmol/L Normal 3.5 - 5.3 [facility] Comment on above: Performed By: #### B MP #### [address] [address] Sodium [Moles/Vol] 140 mmol/L Normal 136 - 145 [facility] Comment on above: Performed By: #### B MP #### [address] [address] Urea nitrogen [Mass/Vol] 5 mg/dL Low 6 - 23 [facility] Comment on above: Performed By: #### B MP #### [address] [address] CBC AND DIFFERENTIALon 03-14 Basophils (Bld) [#/Vol] 0.10 10*3/uL Normal 0.00 - 0.10 [facility] Comment on above: Performed By: #### C BCDF #### [address] [address] Eosinophils (Bld) [#/Vol] 0.10 10*3/uL Normal 0.00 - 0.70 [facility] Comment on above: Performed By: #### C BCDF #### [address] [address] Lymphocytes (Bld) [#/Vol] 2.80 10*3/uL Normal 1.20 - 4.80 [facility] Comment on above: Performed By: #### C BCDF #### [address] [address] Monocytes (Bld) [#/Vol] 0.50 10*3/uL Normal 0.10 - 1.00 [facility] Comment on above: Performed By: #### C BCDF #### [address] [address] Neutrophils (Bld) [#/Vol] 6.30 10*3/uL Normal 1.20 - 7.70 [facility] Comment on above: Result Comment: Perc ent differential counts (%) should be interpreted in the context of the absolute cell counts (cells/L). Performed By: #### C BCDF #### [address] [address] NUCLEATED RBC 0.2 /100 WBC Normal [facility] Comment on above: Performed By: #### C BCDF #### [address] [address] Platelets (Bld) [#/Vol] 241 10*3/uL Normal 150 - 450 [facility] Comment on above: Performed By: #### C BCDF #### [address] [address] RBC 5.23 x10E12/L High 4.00 - 5.20 [facility] Comment on above: Performed By: #### C BCDF #### [address] [address] WBC (Bld) [#/Vol] 9.6 10*3/uL Normal 4.4 - 11.3 [facility] Comment on above: Performed By: #### C BCDF #### [address] [address] Complete Blood Count + Diffe rentialon 03-14-2020 Basophils (Bld) [#/Vol] 0.10 {x10E9/L} See Below [facility] Work Phone: Comment on above: Reference Range: 0.0 0 - 0.10 Ordering Provider: Briseida GONZALEZ [address] Basophils/100 WBC (Bld) 0.6 % Normal 0.0 - 2.0 [facility] Work Phone: Comment on above: Ordering Provider: Briseida GONZALEZ [address] Performed By: #### C BCDF #### [address] [address] Eosinophils (Bld) [#/Vol] 0.10 {x10E9/L} See Below [facility] Work Phone: Comment on above: Reference Range: 0.0 0 - 0.70 Ordering Provider: Briseida GONZALEZ [address] Eosinophils/100 WBC (Bld) 0.6 % Normal 0.0 - 6.0 [facility] Work Phone: Comment on above: Ordering Provider: Briseida GONZALEZ [address] Performed By: #### C BCDF #### [address] [address] Erythrocyte distribution width (RBC) [Ratio] 13.1 % Normal 11.5 - 14.5 [facility] Work Phone: Comment on above: Reference Range: 11. 5 - 14.5 Ordering Provider: Briseida GONZALEZ [address] Performed By: #### C BCDF #### [address] [address] Hematocrit (Bld) [Volume fraction] 48.3 % High 36.0 - 46.0 [facility] Internal [facility] Work Phone: Comment on above: Reference Range: 36. 0 - 46.0 Ordering Provider: Briseida GONZALEZ 70842 Performed By: #### C BCDF #### [address] [address] Hemoglobin (Bld) [Mass/Vol] 16.2 g/dL High 12.0 - 16.0 [facility] Internal [facility] Work Phone: Comment on above: Reference Range: 12. 0 - 16.0 Ordering Provider: Briseida GONZALEZ 64[address] Performed By: #### C BCDF #### [address] [address] Lymphocytes (Bld) [#/Vol] 2.80 {x10E9/L} See Below [facility] Work Phone: Comment on above: Reference Range: 1.2 0 - 4.80 Ordering Provider: Briseida GONZALEZ [address] Lymphocytes/100 WBC (Bld) 28.6 % Normal 13.0 - 44.0 [facility] Work Phone: Comment on above: Reference Range: 13. 0 - 44.0 Ordering Provider: Briseida GONZALEZ [address] Performed By: #### C BCDF #### [address] [address] MCHC (RBC) [Mass/Vol] 33.6 g/dL Normal 32.0 - 36.0 [facility] Work Phone: Comment on above: Reference Range: 32. 0 - 36.0 Ordering Provider: Briseida GONZALEZ 487[address] Performed By: #### C BCDF #### [address] [address] MCV (RBC) [Entitic vol] 92 fL Normal 80 - 100 [facility] Work Phone: Comment on above: Ordering Provider: Briseida GONZALEZ [address] Performed By: #### C BCDF #### [address] [address] Monocytes (Bld) [#/Vol] 0.50 {x10E9/L} See Below [facility] Work Phone: Comment on above: Reference Range: 0.1 0 - 1.00 Ordering Provider: Briseida GONZALEZ [address]772 Monocytes/100 WBC (Bld) 5.0 % Normal 2.0 - 10.0 [facility] Work Phone: Comment on above: Ordering Provider: Briseida GONZALEZ [address] Performed By: #### C BCDF #### [address] [address] Neutrophils (Bld) [#/Vol] 6.30 {x10E9/L} See Below [facility] Work Phone: Comment on above: Reference Range: 1.2 0 - 7.70 Percent differential counts (%) should be interpreted in the context of the absolute cell counts (cells/L). Ordering Provider: Briseida GONZALEZ [address] Neutrophils/100 WBC (Bld) 65.2 % Normal 40.0 - 80.0 [facility] Work Phone: Comment on above: Reference Range: 40. 0 - 80.0 Ordering Provider: Briseida GONZALEZ 86[address] Performed By: #### C BCDF #### [address] [address] Platelets (Bld) [#/Vol] 241 {x10E9/L} 150 - 450 [facility] Work Phone: Comment on above: Ordering Provider: Briseida GONZALEZ [address] RBC (Bld) [#/Vol] 5.23 {x10E12/L} above high threshold See Below [facility] Work Phone: Comment on above: Reference Range: 4.0 0 - 5.20 Ordering Provider: Briseida GONZALEZ [address] WBC (Bld) [#/Vol] 0.2 {/100_WBC} [facility] Work Phone: Comment on above: Ordering Provider: Briseida REYNA GONZALEZ [address] WBC (Bld) [#/Vol] 9.6 {x10E9/L} 4.4 - 11.3 [facility] Work Phone: Comment on above: Ordering Provider: Briseida GONZALEZ [address] HEPATIC FUNCTION PANELon Albumin [Mass/Vol] 4.2 g/dL Normal 3.4 - 5.0 [facility] Comment on above: Performed By: #### H EPFP #### [address] [address] ALP [Catalytic activity/Vol] 83 U/L Normal 33 - 110 [facility] Comment on above: Performed By: #### H EPFP #### [address] [address] ALT [Catalytic activity/Vol] 69 U/L High 7 - 45 [facility] Comment on above: Result Comment: Tran ents treated with Sulfasalazine may generate falsely decreased results for ALT. Performed By: #### H EPFP #### [address] [address] AST [Catalytic activity/Vol] 70 U/L High 9 - 39 [facility] Comment on above: Performed By: #### H EPFP #### [address] [address] Bilirubin [Mass/Vol] 0.4 mg/dL Normal 0.0 - 1.2 [facility] Comment on above: Performed By: #### H EPFP #### [address] [address] Bilirubin.indirect [Mass/Vol] 0.1 mg/dL Normal 0.0 - 0.3 [facility] Comment on above: Performed By: #### H EPFP #### [address] [address] Protein [Mass/Vol] 7.1 g/dL Normal 6.4 - 8.2 [facility] Comment on above: Performed By: #### H EPFP #### [facility] [address] [place] [address] Hepatic Function Panelon Albumin BCP dye [Mass/Vol] 4.2 g/dL 3.4 - 5.0 [facility] Work Phone: Comment on above: Ordering Provider: Briseida GONZALEZ [address] ALP [Catalytic activity/Vol] 83 U/L 33 - 110 [facility] Work Phone: Comment on above: Ordering Provider: Briseida GONZALEZ [address] ALT With P-5'-P [Catalytic activity/Vol] 69 U/L above high threshold 7 - 45 [facility] Work Phone: Comment on above: Patients treated wit h Sulfasalazine may generate falsely decreased results for ALT. Ordering Provider: Briseida GONZALEZ 39517 AST With P-5'-P [Catalytic activity/Vol] 70 U/L above high threshold 9 - 39 [facility] Work Phone: Comment on above: Ordering Provider: Briseida GONZALEZ [address] Bilirubin [Mass/Vol] 0.4 mg/dL 0.0 - 1.2 [facility] Work Phone: Comment on above: Ordering Provider: Briseida GONZALEZ [address] Bilirubin.direct [Mass/Vol] 0.1 mg/dL 0.0 - 0.3 [facility] Work Phone: Comment on above: Ordering Provider: Briseida GONZALEZ [address]85[address] Protein [Mass/Vol] 7.1 g/dL 6.4 - 8.2 [facility] Work Phone: Comment on above: Ordering Provider: Briseida GONZALEZ [address] Metabolic Panelon 03-14-2020 Anion gap [Moles/Vol] 15 mmol/L 10 - 20 [facility] Work Phone: Comment on above: Ordering Provider: Briseida GONZALEZ [address] Calcium [Mass/Vol] 9.3 mg/dL 8.6 - 10.3 [facility] Work Phone: Comment on above: Ordering Provider: Briseida GONZALEZ [address] Chloride [Moles/Vol] 108 mmol/L above high threshold 98 - 107 [facility] Medicine Work Phone: Comment on above: Ordering Provider: Briseida GONZALEZ [address]258 CO2 [Moles/Vol] 21 mmol/L 21 - 32 [facility] Internal Medicine Work Phone: Comment on above: Ordering Provider: Briseida GONZALEZ [address] Creatinine [Mass/Vol] 0.56 mg/dL See Below [facility] Internal Medicine Work Phone: Comment on above: Reference Range: 0.5 0 - 1.05 Ordering Provider: Briseida GONZALEZ 84997 Glucose [Mass/Vol] 111 mg/dL above high threshold 74 - 99 [facility] Medicine Work Phone: Comment on above: Ordering Provider: Briseida GONZALEZ [address] Potassium [Moles/Vol] 3.9 mmol/L 3.5 - 5.3 [facility] Internal Medicine Work Phone: Comment on above: Ordering Provider: Briseida Dugan Sodium [Moles/Vol] 140 mmol/L 136 - 145 [facility] Medicine Work Phone: Comment on above: Ordering Provider: Briseida Dugan Urea nitrogen [Mass/Vol] 5 mg/dL below low threshold 6 - 23 [facility] Medicine Work Phone: Comment on above: Ordering Provider: Briseida Dugan Otheron 03-14-2020 >60 >60 [facility] Work Phone: Comment on above: CALCULATIONS OF JEREL MATED GFR ARE PERFORMED USING THE MDRD STUDY EQUATION FOR THE IDMS-TRACEABLE CREATININE METHODS. CLIN CHEM 2007;53:766-72 Ordering Provider: Briseida GONZALEZ 79996 DRUG SCREEN,URINEon 03-13-19 21 AMPHETAMINE SCREEN,U Negative Normal NEGATIVE [facility] Comment on above: Result Comment: CUTO FF LEVEL: 500 NG/ML Cross-reactivity has been reported with high concentrations of the following drugs: buproprion, chloroquine, chlorpromazine, ephedrine, mephentermine, fenfluramine, phentermine, phenylpropanolamine, pseudoephedrine, and propranolol. Performed By: #### D RUG3 #### [place] [address] BARBITURATES SCREEN,U Negative Normal NEGATIVE [facility] Comment on above: Result Comment: CUTO FF LEVEL: 200 NG/ML Performed By: #### D RUG3 #### [place] [id number] BENZODIAZEPINES SCREEN,U Negative Normal NEGATIVE [facility] Comment on above: Result Comment: CUTO FF LEVEL: 200 NG/ML Performed By: #### D RUG3 #### [place] [address] CANNABINOIDS SCREEN,U Negative Normal NEGATIVE [facility] Comment on above: Result Comment: CUTO FF LEVEL: 50 NG/ML Performed By: #### D RUG3 #### [place] [id number] COCAINE METABOLITE SCREEN,U Negative Normal NEGATIVE [facility] Comment on above: Result Comment: CUTO FF LEVEL: 150 NG/ML Performed By: #### D RUG3 #### [place] [address] DRUG SCREEN COMMENT SEE BELOW Normal [facility] Comment on above: Result Comment: Drug screen results are presumptive and should not be used to assess compliance with prescribed medication. Contact the performing [facility] laboratory to add-on definitive confirmatory [...] directors. Performed By: #### D RUG3 #### [place] [address] FENTANYL SCREEN,URINE Negative Normal NEGATIVE [facility] Comment on above: Result Comment: CUTO FF LEVEL: 1 NG/ML The performance characteristics of this test have been determined by the individual laboratory site where testing is performed. This test has not been cleared or approved by the FDA; however, the FDA has determined that such clearance is not necessary. Performed By: #### D RUG3 #### [place] [address] METHADONE SCREEN,U Negative Normal NEGATIVE [facility] Comment on above: Result Comment: CUTO FF LEVEL: 150 NG/ML The metabolite Y-xckzt-klhdibukfswhyk (LAAM) is not detected by this method in concentrations that would be found in the urine of patients on LAAM therapy. Performed By: #### D RUG3 #### [place] [address] OPIATES SCREEN,U Negative Normal NEGATIVE [facility] Comment on above: Result Comment: CUTO FF LEVEL: 300 NG/ML The opiate screen does not detect fentanyl, meperidine, or tramadol. Oxycodone is not consistently detected (refer to Oxycodone Screen, Urine result). Performed By: #### D RUG3 #### [place] [address] OXYCODONE SCREEN,U Negative Normal NEGATIVE [facility] Comment on above: Result Comment: CUTO FF LEVEL: 100 NG/ML This test will accurately detect both oxycodone and oxymorphone. Performed By: #### D RUG3 #### [place] [address] PCP SCREEN,U Negative Normal NEGATIVE [facility] Comment on above: Result Comment: CUTO FF LEVEL: 25 NG/ML Cross-reactivity has been reported with dextromethorphan. Performed By: #### D RUG3 #### [place] [address] HCG,URINEon 03-13-2020 Beta HCG ( test) Ql (U) Negative Normal Negative [facility] Comment on above: Performed By: #### H U #### [facility] [address] 03-13-2020 Amphetamines Screen Ql (U) Negative NEGATIVE [facility] Work Phone: Comment on above: CUTOFF LEVEL: 500 NG /ML Cross-reactivity has been reported with high concentrations of the following drugs: buproprion, chloroquine, chlorpromazine, ephedrine, mephentermine, fenfluramine, phentermine, phenylpropanolamine, pseudoephedrine, and propranolol. Ordering Provider: Briseida Dugan Benzoylecgonine Screen Ql (U) Negative NEGATIVE [facility] Work Phone: Comment on above: CUTOFF LEVEL: 150 NG /ML Ordering Provider: Briseida Gonzalez202 Methadone Screen Ql (U) Negative NEGATIVE [facility] Medicine Work Phone: Comment on above: CUTOFF LEVEL: 150 NG /ML The metabolite S-vqzic-jjuheskiihpppl (LAAM) is not detected by this method in concentrations that would be found in the urine of patients on LAAM therapy. Ordering Provider: Briseida Dugan Opiates Screen Ql (U) Negative NEGATIVE [facility] Medicine Work Phone: Comment on above: CUTOFF LEVEL: 300 NG /ML The opiate screen does not detect fentanyl, meperidine, or tramadol. Oxycodone is not consistently detected (refer to Oxycodone Screen, Urine result). Ordering Provider: Briseida Dugan Oxycodone+Oxymorphone Screen Ql (U) Negative NEGATIVE [facility] Work Phone: Comment on above: CUTOFF LEVEL: 100 NG /ML This test will accurately detect both oxycodone and oxymorphone. Ordering Provider: Briseida Gonzalez202 SEE BELOW [facility] Work Phone: Comment on above: Drug screen results are presumptive and should not be used to assess compliance with prescribed medication. Contact the performing [facility] laboratory to add-on definitive confirmatory [...] laboratory medical directors. Ordering Provider: Briseida GONZALEZ [address] Provider Note - ED v2on 02-13 Provider [...] same issue. She presents today here at [place] as her anxiety continues to worsen. She [...] made to minimize errors. 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 Please call if questions.. 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 She will need this redrawn before she can be medically cleared. She has been medically cleared otherwise. Patient case transitioned to attending physician, Dr. Pierre CLINICAL IMPRESSION Diagnosis/Annotation: ED Dx Name:Anxiety Code:F41.9 Name:Alcohol intoxication Code:F10.929 Disp (more content not included)... Normal [facility] Risk Screen - Adult Emergenc yon [...] Learning Preferencesindividual instruction Cultural Considerationsnone Developmental Considerationsnone Evangelical Considerationsnone Learning Assessment (Other Learner): Learning Assessment [...] an injured patient at a Trauma Center ([facility]/[place]): no Electronic Signatures: Jeronimo Teixeira (RN) (Signed 13-Mar-2020 21:24) Authored: Preferred Language, Advanced Directives, Family Violence Adult, Learning Assessment (Patient), Learning Assessment (Other Learner), Pressure Injury/TB/Substance, Pressure Injury, CAGE Last Updated: 13-Mar-2020 21:24 by Jeronimo Teixeira (RN) [facility] Triage - EDon 03-13-2020 Triage - ED Quick Triage: Are You no Have You Given In The Last 6 Weeksno Are You Currently Breastfeedingno The patient and/or guardian verbally acknowledges placement for services into the following (when Urgent Care Service hours are operating):emergency department Chart Review: ARRIVAL INFORMATION Mode of Arrival: ambulance Agency Name: [facility] CHIEF COMPLAINT LYLE BAILEY is a [...] BMI (kg/m2): 34.510 Calculated BSA (m2) 1.93 Cristi Coma Scale: Best Eye Response: (E4) spontaneous Best Motor Response: (M6) obeys commands Best Verbal Response: (V5) oriented Fenton Score: 15 Cough lasting greater than 3 [...] Last Updated: 13-Mar-2020 21:23 by Jeronimo Teixeira (RN) Normal [facility] UA MICROSCOPICon 03-13-2020 RBC 1 /HPF Normal 0-5 [facility] Comment on above: Performed By: #### U AMIC #### [address] [address] WBC (U) [#/Vol] /uL Normal 0-5 [facility] Comment on above: Performed By: #### U AMIC #### [address] [address] URINALYSIS WITH CULTURE IF I NDICATEDon 03-13-2020 Appearance (U) CLEAR Normal CLEAR [facility] Comment on above: Performed By: #### C BCDF #### [address] [address] Bilirubin Ql (U) Negative Normal NEGATIVE [facility] Comment on above: Performed By: #### C BCDF #### [address] [address] Color (U) Colorless Normal STRAW,YELLOW [facility] Comment on above: Performed By: #### C BCDF #### [place] [address] Glucose Ql (U) Negative Normal NEGATIVE [facility] Comment on above: Performed By: #### C BCDF #### [place] [address] Hemoglobin Ql (U) SMALL(1+) Abnormal NEGATIVE [facility] Comment on above: Performed By: #### C BCDF #### [place] [address] Ketones Ql (U) Negative Normal NEGATIVE [facility] Comment on above: Performed By: #### C BCDF #### [place] [address] Leukocyte esterase Test strip Ql (U) Negative Normal NEGATIVE [facility] Comment on above: Performed By: #### C BCDF #### [place] [address] Nitrite Ql (U) Negative Normal NEGATIVE [facility] Comment on above: Performed By: #### C BCDF #### [place] [address] pH (U) 7.0 [pH] Normal 5.0 - 8.0 [facility] Comment on above: Performed By: #### C BCDF #### [place] [address] Protein Ql (U) Negative Normal NEGATIVE [facility] Comment on above: Performed By: #### C BCDF #### [place] [address] Specific gravity (U) [Rel density] 1.001 Low 1.005 - 1.035 [facility] Comment on above: Performed By: #### C BCDF #### [place] [address] Urobilinogen (U) [Mass/Vol] mg/dL Normal 0.0 - 1.9 [facility] Comment on above: Performed By: #### C BCDF #### [facility] [address] [place] [address] Appearance (U) CLEAR CLEAR [facility] Medicine Work Phone: Comment on above: Ordering Provider: Briseida GONZALEZ [address] Color (U) Colorless See Below [facility] Work Phone: Comment on above: Reference Range: STR AW,YELLOW Ordering Provider: Briseida GONZALEZ [address] Glucose Ql (U) Negative NEGATIVE [facility] Work Phone: Comment on above: Ordering Provider: Briseida GONZALEZ [address] Ketones Ql (U) Negative NEGATIVE [facility] Work Phone: Comment on above: Ordering Provider: Briseida GONZALEZ [address]75[address] Leukocyte esterase Test strip Ql (U) Negative NEGATIVE [facility] Work Phone: Comment on above: Ordering Provider: Briseida GONZALEZ [address] pH (U) 7.0 [pH] 5.0 - 8.0 [facility] Work Phone: Comment on above: Ordering Provider: Briseida GONZALEZ [address] Protein (U) [Mass/Vol] Negative NEGATIVE [facility] Work Phone: Comment on above: Ordering Provider: Briseida GONZALEZ 683[address] RBC (U) [#/Vol] SMALL(1+) Abnormal NEGATIVE [facility] Work Phone: Comment on above: Ordering Provider: Briseida GONZALEZ [address]54[address] Specific gravity (U) [Rel density] 1.001 1 below low threshold See Below [facility] Work Phone: Comment on above: Reference Range: 1.0 05 - 1.035 Ordering Provider: Briseida GONZALEZ [address] URINALYSIS WITH CULTURE IF INDICATED Negative NEGATIVE [facility] Work Phone: Comment on above: CUTOFF LEVEL: 1 NG/M L The performance characteristics of this test have been determined by the individual laboratory site where testing is performed. This test has not been cleared or approved by the FDA; however, the FDA has determined that such clearance is not necessary. Ordering Provider: Briseida MARROQUINMadeleine [address] URINALYSIS WITH CULTURE IF INDICATED <2.0 0.0 - 1.9 [facility] Work Phone: Comment on above: Ordering Provider: Briseida GONZALEZ [address] Urinalysison 03-13-2020 Barbiturates Screen Ql (U) Negative NEGATIVE [facility] Work Phone: Comment on above: CUTOFF LEVEL: 200 NG /ML Ordering Provider: Briseida Dugan Benzodiazepines Ql (U) Negative NEGATIVE [facility] Work Phone: Comment on above: CUTOFF LEVEL: 200 NG /ML Ordering Provider: Briseida Gonzalez202 Cannabinoids Screen Ql (U) Negative NEGATIVE [facility] Work Phone: Comment on above: CUTOFF LEVEL: 50 NG/ ML Ordering Provider: Briseida Dugan Phencyclidine Ql (U) Negative NEGATIVE [facility] Work Phone: Comment on above: CUTOFF LEVEL: 25 NG/ ML Cross-reactivity has been reported with dextromethorphan. Ordering Provider: Briseida MARROQUINMadeleine [address]60 Urinalysis, Microscopicon Urinalysis, Microscopic 1 {/HPF} 0-5 [facility] Work Phone: Comment on above: Ordering Provider: Briseida Gonzalez202 Urinalysis, Microscopic <1 0-5 [facility] Work Phone: Comment on above: Ordering Provider: Briseida Gonzalez202 Urine Teston 03-13 HCG ( test) Ql (U) Negative Negative [facility] Work Phone: Comment on above: Ordering Provider: Briseida Gonzalez202 Office Visit (Internal Medic ine)on 03-02-2020 Follow-up [...] 03/02/2020 1:13:24 PM;Ordered; For:Hepatitis-C; Ordered By:Nathan Barlow; Uweww-3-Laajryexnbr, Serum; Specimen Source:Blood (BLD); Status:Active; Requested for:02Mar2020; [...] Wolf; 03/02/2020 1:13:24 PM;Ordered; For:Hepatitis-C; Ordered By:Nathan Bralow; HCV Fibrosure; Status:Active; Requested for:02Mar2020; Perform:Lab Services [...] Test); Due: (more content not included)... Normal [facility] CORONAVIRUS 2019 BY PCRon SARS-CoV-2 (COVID-19) RNA MOISES+probe Ql (Unsp spec) Not detected Normal Not Detected [facility] Comment on above: Result Comment: . [...] patient management decisions. Fact sheet for providers: https://www.fda.gov/media/994852/download Fact sheet for patients: https://www.fda.gov/media/764584/download This test has received FDA Emergency Use Authorization (EUA) and has been verified by [facility] ([facility]). This test is only authorized for the duration of time that circumstances exist to justify the authorization of the emergency use of in vitro diagnostic tests for the detection of SARS-CoV-2 virus and/or diagnosis of COVID-19 infection under section 564(b)(1) of the Act, 21 U.S.C. 360bbb-3(b)(1), unless the authorization is terminated or revoked sooner. [facility] is certified under CLIA-88 as qualified to perform high complexity testing. Testing is performed in the [facility] laboratories located at [address] [place] [address]. This is a corrected result. Previous value was PENDING, verified at 02/24/2020 10:55 Performed By: #### C OV19 #### [address] [place] [address] Covid 19 Resultson SARS-CoV-2 (COVID-19) RNA MOISES+probe Ql (Unsp spec) [...] You may also be contacted by the [facility] to see if any of your [...] or Naproxen (Aleve) can also be used. Xivs-evk-kwohtlg cough and cold medicines can be used according to the instructions on the package. Some vulm-jth-hesmuwv medicines also contain acetaminophen. Make sure you [...] water are not available, use alcohol-based hand shaft tender. Avoid touching your eyes, nose, and mouth [...] like ibuprofen (Motrin) (more content not included)... [facility] CORONAVIRUS 2019 BY PCRon DATE OF SYMPTOM ONSET [YYYYMMDD]? 20200221 [facility] Comment on above: Performed By: #### C OV19 #### [facility] [address] [place] [address] Lab Specimen Source Nasal, Nasopharyngeal [facility] Comment on above: Performed By: #### C OV19 #### [facility] [address] [place] [address] Coronavirus 2019 RNA by PCR, Symptomaticon 02-23-2020 When did you start to experience these symptoms [Date and time] [PhenX] 20200221 1 [facility] Work Phone: Comment on above: Ordering Provider: Janny HALL [address]99[address] Coronavirus 2019 RNA by PCR, Symptomatic NOT DETECTED See Below [facility] Work Phone: Comment [...] make patient management decisions.Fact sheet for providers: https://www.fda.gov/media/511565/downloadFact sheet for patients: https://www.fda.gov/media/837739/downloadThis test has received FDA Emergency Use Authorization (EUA) and has been verified by [facility] ([facility]). This test is only authorized for the duration of time that circumstances exist to justify the authorization of the emergency use of in vitro diagnostic tests for the detection of SARS-CoV-2 virus and/or diagnosis of COVID-19 infection under section 564(b)(1) of the Act, 21 U.S.C. 360bbb-3(b)(1), unless the authorization is terminated or revoked sooner. [facility] is certified under CLIA-88 as qualified to perform high complexity testing. Testing is performed in the [facility] laboratories located at [id number] [place] [address].This is a corrected result. 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 Is : no REVIEW [...] Updated: 27-Jan-2020 11:59 by Colette Howell (PAC) [facility] URINE CULTURE,BACTERIALon URINE CULTURE,BACTERIAL PATIENT: LYLE BAILEY LOCATION: [facility] BILL#: [id number] : 89 AGE: SEX: F ORDERED BY: COLETTE HOWELL SOURCE: URINE COLLECTED: 01/27/20 11:53 ANTIBIOTICS AT TRELL.: RECEIVED : 01/28/20 00:35 SITE: [facility] URINE CULTURE,BACTERIAL FINAL 01/30/20 00:28 ISOLATE1 : Escherichia coli >100,000 CFU/ML Organism E coli Antibiotic BP INTRP Ampicillin R Amox/Clavulanate S Ceftriaxone S Cefotaxime N/R Cefazolin S Ciprofloxacin S Nitrofurantoin S Gentamicin S Levofloxacin S Piperc/Tazobact S Trimeth/Sulfa S Tetracycline S S=SUSCEPTIBLE I=INTERMEDIATE R=RESISTANT SDD=SUSCEPTIBLE DOSE DEPENDENT NS=NONSUSCEPTIBLE X=REPORTED IN ERROR Normal [facility] Comment on above: Performed By: #### C [facility] #### [place] [address] Office Visit (Internal Medic ine)on 01-20-2020 Follow-up visit Diagnoses/Problems Assessed Headache (784.0) (R51.9) Patient Discussion/Summary F/U BEFORE FAX WORK EXCUSE TO [phone] Chief Complaint An interactive audio and video [...] 4 TIMES DAILY Vitals Vital Signs Recorded: [id number] 09:42AM Tobacco Usea) Yes Patient encouraged to stop using tobacco productsYes Fall Screeninga) No falls within the last year Physical Exam Constitutional General appearance: Alert and in no acute distress. Psychiatric Orientation: Oriented to person, place, and time. Mood and affect: Normal. Signatures Electronically signed by : MOHAN Mcmillan; Jan 20 2020 10:07AM EST (Author) Normal [facility] CORONAVIRUS 2019 BY PCRon SARS-CoV-2 (COVID-19) RNA MOISES+probe Ql (Unsp spec) Not detected Normal Not Detected [facility] Comment on above: Result Comment: . This [...] this test method. Fact sheet for providers: https://www.fda.gov/media/359395/download Fact sheet for patients: https://www.fda.gov/media/240962/download This test has received FDA Emergency Use Authorization [EUA] and has been verified by [facility] ([facility]). This test is only authorized for the duration of time that circumstances exist to justify the authorization of the emergency use of in vitro diagnostic tests for the detection of SARS-CoV-2 virus and/or diagnosis of COVID-19 infection under section 564(b)(1) of the Act, 21 U.S.C. 360bbb-3(b)(1), unless the authorization is terminated or revoked sooner. [facility] is certified under CLIA-88 as qualified to perform high complexity testing. Testing is performed in the [facility] laboratories located at [address] [place] [address]. Performed By: #### C OV19 #### [place] [address] CORONAVIRUS 2019 BY PCRon Lab Specimen Source Nasal, Nasopharyngeal Normal [facility] Comment on above: Performed By: #### C OV19 #### [place] [address] DATE OF SYMPTOM ONSET [YYYYMMDD]? 20200106 Normal [facility] Comment on above: Performed By: #### C OV19 #### [place] [address] EMPLOYED IN HEALTHCARE? No Normal [facility] Comment on above: Performed By: #### C OV19 #### [place] [address] HOSPITALIZED (OR PLANNED TO BE ADMITTED)? No Normal [facility] Comment on above: Performed By: #### C OV19 #### [place] [address] ICU? No Normal [facility] Comment on above: Performed By: #### C OV19 #### [facility] [address] [place] [address] ? [address] [facility] Comment on above: Performed By: #### C OV19 #### [facility] [address] [place] [address] RESIDENT IN CONGREGATE CARE SETTING? No Normal [facility] Comment on above: Performed By: #### C OV19 #### [facility] [address] [place] [address] SARS-CoV-2 (COVID-19) Ab IA Ql No Normal [facility] Comment on above: Performed By: #### C OV19 #### [facility] [address] [place] [address] SYMPTOMATIC DEFINED BY CDC? Yes Normal [facility] Comment on above: Performed By: #### C OV19 #### [facility] [address] [place] [address] Office Visit (Internal Medic ine)on 01-06-2020 Follow-up visit Diagnoses/Problems Assessed Flu-like symptoms (780.99) (R68.89) Contact with and (suspected) exposure to other viral communicable diseases (V01.79) (Z20.828) Orders Contact with and (suspected) exposure to other viral communicable diseases, Flu-like symptoms Coronavirus 2019 RNA by PCR, Symptomatic; Status:Active; Requested for:06Jan2020; Perform:Lab Services - Lab To Draw (Non-Blood Test); Due:[id number];Ordered; For:Contact with and (suspected) exposure to other viral communicable diseases, Flu-like symptoms; Ordered By:Nini Wolf; ? : No RESIDENT IN CONGREGATE CARE SETTING? : No ICU? : No HOSPITALIZED (OR PLANNED TO BE ADMITTED)? : No EMPLOYED IN HEALTHCARE? : No FIRST COVID NASAL SWAB TEST? : No Symptom 2 : Runny nose/Congestion Symptom 1 : Body aches/Malaise DATE OF SYMPTOM ONSET? : [id number] IS THE PATIENT SYMPTOMATIC DEFINED BY THE [...] Cigarette smoker; LISA = N; Sent To: [facility] 1440 Patient Discussion/Summary F/U BEFORE PER REQUEST WILL CALL SATURDAY FOR COVID RESULTS Provider Impressions SCHEDULED FOR [facility] COVID-19 TESTING. INSTRUCTED TO SELF QUARANTINE AND [...] ON Saturday01/04/20. SHE HAS TESTED NEGATIVE AT [facility] ON 12/31/19--C/O SINUS CONGESTION/RUNNY NOSE, FATIGUE, LOSS [...] (Z72.89) Cigar (more content not included)... Normal [facility] OPIATE/OPIOID/BENZO EXTENDED PRESCRIPTION COMPLIANCEon 12-28-2019 6-ACETYLMORPHINE <25 Normal Cutoff <25 [facility] Comment on above: Performed By: #### C BCDF #### [place] [address] CODEINE <50 Normal Cutoff <50 [facility] Comment on above: Performed By: #### C BCDF #### [place] [address] EDDP,U <25 Normal Cutoff <25 [facility] Comment on above: Result Comment: The [...] testing. Performed By: #### C BCDF #### [place] [address] FENTANYL CONFIRM,U <2.5 Normal Cutoff<2.5 [facility] Comment on above: Performed By: #### C BCDF #### [place] [address] HYDROCODONE <25 Normal Cutoff <25 [facility] Comment on above: Performed By: #### C BCDF #### [place] [address] METHADONE,U <25 Normal Cutoff <25 [facility] Comment on above: Performed By: #### C BCDF #### [place] [address] NORFENTANYL CONFIRM,U <2.5 Normal Cutoff<2.5 [facility] Comment on above: Result Comment: [...] testing. Performed By: #### C BCDF #### [place] [address] NOROXYCODONE <25 Normal Cutoff <25 [facility] Comment on above: Performed By: #### C BCDF #### [address] [address] O-DESMETHYLTRAMADOL,U <50 Normal Cutoff <50 [facility] Comment on above: Result Comment: [...] testing. Performed By: #### C BCDF #### [place] [address] OXYCODONE <25 Normal Cutoff <25 [facility] Comment on above: Performed By: #### C BCDF #### [place] [address] OXYMORPHONE <25 Normal Cutoff <25 [facility] Comment on above: Result Comment: The [...] testing. Performed By: #### C BCDF #### [place] [id number] TRAMADOL CONFIRM,U <50 Normal Cutoff <50 [facility] Comment on above: Performed By: #### C BCDF #### [address] [address] ZOLPIDEM METABOLITE[ZCA] ,U <25 Normal Cutoff <25 [facility] Comment on above: Result Comment: The [...] testing. Performed By: #### C BCDF #### [place] [address] ZOLPIDEM,URINE <25 Normal Cutoff <25 [facility] Comment on above: Performed By: #### C BCDF #### [place] [address] 7-AMINOCLONAZEPAM <25 Normal Cutoff <25 [facility] Comment on above: Performed By: #### C BCDF #### [place] [address] ALPHA-HYDROXYALPRAZOL AM <25 Normal Cutoff <25 [facility] Comment on above: Performed By: #### C BCDF #### [place] [address] ALPHA-HYDROXYMIDAZOLA M <25 Normal Cutoff <25 [facility] Comment on above: Performed By: #### C BCDF #### [place] [address] ALPRAZOLAM <25 Normal Cutoff <25 [facility] Comment on above: Performed By: #### C BCDF #### [place] [address] CHLORDIAZEPOXIDE <25 Normal Cutoff <25 [facility] Comment on above: Performed By: #### C BCDF #### [place] [address] CLONAZEPAM <25 Normal Cutoff <25 [facility] Comment on above: Performed By: #### C BCDF #### [place] [address] DIAZEPAM <25 Normal Cutoff <25 [facility] Comment on above: Performed By: #### C BCDF #### [place] [address] HYDROMORPHONE <25 Normal Cutoff <25 [facility] Comment on above: Performed By: #### C BCDF #### [place] [address] LORAZEPAM <25 Normal Cutoff <25 [facility] Comment on above: Performed By: #### C BCDF #### [place] [address] MIDAZOLAM <25 Normal Cutoff <25 [facility] Comment on above: Performed By: #### C BCDF #### [place] [address] MORPHINE <50 Normal Cutoff <50 [facility] Comment on above: Performed By: #### C BCDF #### [place] [address] NORDIAZEPAM <25 Normal Cutoff <25 [facility] Comment on above: Performed By: #### C BCDF #### [place] [address] NORHYDROCODONE <25 Normal Cutoff <25 [facility] Comment on above: Performed By: #### C BCDF #### [place] [address] OXAZEPAM <25 Normal Cutoff <25 [facility] Comment on above: Performed By: #### C BCDF #### [place] [address] TEMAZEPAM <25 Normal Cutoff <25 [facility] Comment on above: Result Comment: The [...] testing. Performed By: #### C BCDF #### [place] [address] OPIATE/OPIOID/BENZO EXTENDED PRESCRIPTION COMPLIANCEon 12-24-2019 Specific gravity (U) [Rel density] 1.0060 Normal Valid 1.0020-1.020 0 [facility] Comment on above: Performed By: #### C BCDF #### [place] [address] AMPHETAMINE SCREEN,U Negative Normal NEGATIVE [facility] Comment on above: Result Comment: CUTO FF LEVEL: 500 NG/ML Cross-reactivity has been reported with high concentrations of the following drugs: buproprion, chloroquine, chlorpromazine, ephedrine, mephentermine, fenfluramine, phentermine, phenylpropanolamine, pseudoephedrine, and propranolol. Performed By: #### C BCDF #### [place] [address] BARBITURATES SCREEN,U Negative Normal NEGATIVE [facility] Comment on above: Result Comment: CUTO FF LEVEL: 200 NG/ML Performed By: #### C BCDF #### [place] [address] CANNABINOIDS SCREEN,U Negative Normal NEGATIVE [facility] Comment on above: Result Comment: CUTO FF LEVEL: 50 NG/ML Performed By: #### C BCDF #### [place] [address] COCAINE METABOLITE SCREEN,U Negative Normal NEGATIVE [facility] Comment on above: Result Comment: CUTO FF LEVEL: 150 NG/ML Performed By: #### C BCDF #### [place] [address] Creatinine [Mass/Vol] 19.9 mg/dL Abnormal [facility] Comment on above: Result Comment: A ur ine creatinine result >= 20 mg/dL is considered valid without suspicion of dilution. Samples with results below this range will automatically reflex to specific gravity testing to verify specimen integrity. Performed By: #### C BCDF #### [place] [address] DRUG SCREEN COMMENT. SEE BELOW Normal [facility] Comment on above: Result Comment: Drug [...] directors. Performed By: #### C BCDF #### [address] [address] PCP SCREEN,U Negative Normal NEGATIVE [facility] Comment on above: Result Comment: CUTO FF LEVEL: 25 NG/ML Cross-reactivity has been reported with dextromethorphan. Performed By: #### C BCDF #### [address] [address] Office Visit (Internal Medic ine)on 12-23-2019 Follow-up [...] attacks; LISA = N; Verified Transmission to [facility] 7889; Msg to Pharmacy: KAMARRRS REVIEWED. VOID SCRIPT 30 DAYS AFTER WRITTEN [...] For: 'Medication management'Ordered By: 'PRIMARY ASHL03 RN1, [id number]' URINE DRUG TOXICOLOGY ; every 1 year; Next 22Dec2020; Status:Active For: 'Medication management'Ordered By: 'PRIMARY ASHL03 RN1, [id number]' Restless legs syndrome Renew: Gabapentin 400 MG Oral Capsule; TAKE 1 CAPSULE 4 TIMES DAILY Rx By: Nini Wolf; Dispense: 30 Days ; #:120 Capsule; Refill: 2;For: Restless legs syndrome; LIAS = N; Verified Transmission to [facility] 9589; Msg to Pharmacy: OARRS REVIEWED. VOID SCRIPT AND REFILLS 90 DAYS AFTER PRESCRIBING DATE.; Last Updated By: [employer]; 12/23/2019 11:38:38 AM Patient Discussion/Summary F/U 3 [...] of str (more content not included)... Normal [facility] Office Visit (Internal Medic ine)on 11-03-2019 Follow-up [...] 0;For: Generalized anxiety disorder with panic attacks; LIAS = N; Verified Transmission to [facility] 7169; Msg to Pharmacy: OARRS REVIEWED. VOID SCRIPT 30 DAYS AFTER WRITTEN DATE. DO NOT FILL UNTIL 11/21/2019; Last Updated By: Vijay Antonio; 11/03/2019 1:42:47 PM Restless legs syndrome Renew: Gabapentin 400 MG Oral Capsule; TAKE 1 CAPSULE 3 TIMES DAILY Rx By: Nini Wolf; Dispense: 30 Days ; #:90 Capsule; Refill: 2;For: Restless legs syndrome; LISA = N; Verified Transmission to [facility] 6758; Msg to Pharmacy: OARRS REVIEWED. VOID SCRIPT [...] causing COVID-19 illness, and in accordance with [facility] guidelines which encourage social distancing, I have [...] A WAITING LIST TO SEE PSYCH IN [place], [place]. DUE FOR GABAPENTIN REFILL SOON. History [...] no numbness, (more content not included)... Normal [facility] Office Visit (Internal Medic ine)on 10-23-2019 Follow-up [...] panic attacks; LISA = N; Sent To: [facility] 1447; Msg to Pharmacy: OARRS REVIEWED. VOID SCRIPT 30 DAYS AFTER WRITTEN DATE; Last Updated By: System, [employer]; 10/23/2019 12:31:10 PM Patient Discussion/Summary F/U BEFORE [...] causing COVID-19 illness, and in accordance with [facility] guidelines which encourage social distancing, I have [...] depression; LISA = N; Verified Transmission to [facility]; Last Updated By: [email or web address]; 10/13/2019 1:15:20 PM Bipolar depression, Generalized anxiety disorder with panic attacks Adult Psychiatry Referral Evaluation and Treatment Evaluate AND Treat Status: Hold For - Scheduling Requested for: 13Oct2019 Ordered;For: Bipolar depression, Generalized anxiety disorder with panic attacks; Ordered By: Nini Wolf Performed: Order Comments: NEL CHAVIS NP. MIGDALIA STEVENS Due: 11Jan2020 Generalized anxiety disorder with panic attacks Start: clonazePAM 0.25 MG Oral Tablet Disintegrating; PLACE 1 TABLET ON TONGUE AND ALLOW TO DISSOLVE TWICE DAILY NEEDED Rx By: Nini Wolf; Dispense: 15 Days ; #:30 Tablet; Refill: 0;For: Generalized anxiety disorder with panic attacks; LISA = N; Verified Transmission to [facility] [address]; Msg to Pharmacy: OARRS REVIEWED. VOID SCRIPT 30 DAYS AFTER WRITTEN DATE. AVOID ALCOHOL WITH USAGE; Last Updated By: [email or web address]; 10/13/2019 1:14:11 PM Patient Discussion/Summary F/U 3 WEEKS MED CHECK REFER TO PALMIRA LEIJA NP Provider Impressions WILL INCREASE ABILIFY TO 20 [...] causing COVID-19 illness, and in accordance with [facility] guidelines which encourage social distancing, I have [...] , for a telehealth visit. VIRITUAL VISIT; [facility] ED F/U-ANXIETY; C/O HAVING PANIC ATTACKS X 3 A WEEK-SHE ISN'T WANTING TO LEAVE HER HOUSE ANYMORE. History of Present IllnessVIRTUAL APPOINTMENT BEING PERFORMED DUE TO COVID-19 (CORONAVIRUS) Presents today for MIGDALIA SAGE ER F/U FOR ANXIETY/PANIC ATTACK. C/O INCREASED ANXIETY X 2 MONTHS modifying factors consists of WAS KEPT OVER NIGHT FOR OBSERVATION. REQUESTING REFERRAL TO [facility] IN [facility]. STATES SHE HAS A 3 MONTH [...] and pigmentat (more content not included)... Normal [facility] Office Visit (Internal Medic ine)on 09-08-2019 Follow-up visit Diagnoses/Problems Assessed Encounter for screening for other viral diseases (V73.89) (Z11.59) Flu-like symptoms (780.99) (R68.89) Contact with and (suspected) exposure to other viral communicable diseases (V01.79) (Z20.828) Patient Discussion/Summary F/U BEFORE Provider Impressions SCHEDULED FOR [facility] COVID-19 TESTING TODAY AT 1100. INSTRUCTED TO [...] WAS SENT HOME FROM WORK. WORKS AT [employer] IN [place] AND THEY REFUSE TO LET HER BACK [...] ReconstitutedINJECT INTRAMUSCULARLY DIRECTED. Vitals Vital Signs Recorded: [id number] 08:08AM Fall Screeninga) No falls within the [...] Bipolar depression; LISA = N; Sent To: [facility] 8933 Patient Discussion/Summary F/U AROUND November OR A [...] Bipolar depression; LISA = N; Sent To: [facility] 1448; Last Updated By: Fleep; 08/13/2019 9:21:58 AM Generalized anxiety disorder with panic attacks Renew: busPIRone HCl - 10 MG Oral Tablet; TAKE 2 TABLETS TWICE DAILY Rx By: Nini Wolf; Dispense: 90 Days ; #:360 Tablet; Refill: 0;For: Generalized anxiety disorder with panic attacks; LISA = N; Sent To: [facility] 1448 Restless legs syndrome Renew: Gabapentin 400 MG Oral Capsule; TAKE 1 CAPSULE 3 TIMES DAILY Rx By: Nini Wolf; Dispense: 30 Days ; #:90 Capsule; Refill: 2;For: Restless legs syndrome; LISA = N; Sent To: [facility] 1448; Msg to Pharmacy: OARRS REVIEWED. VOID SCRIPT AND REFILLS 90 DAYS AFTER PRESCRIBING DATE; Last Updated By: Fleep; 08/13/2019 9:16:03 AM Patient Discussion/Summary F/U 3 [...] 10 MG TID PRN HEP C- SEES BITE BLOCK MAKER Review of Systems Constitutional: not feeling poorly, [...] 4 MO (more content not included)... Normal [facility] Clinical Summary-RTFon 06-21 Clinical Summary-RTF Clinical Summary Patient Details for LYLE BAILEY Preferred Name Female Sex [id number] [place], [address] Address [place] Language 1990 Born White Race Non- or [...] To Be Done: 22 Jun 2019 ? [id number], Serum; To Be Done: 22 Jun 2019 [...] for Visit Health Issues Reviewed : Normal [facility] Initial Visit (Gastroenterol ogy)on 06-22-2019 Initial Visit [...] (Blood Test); Due:20Sep2019;Ordered; For:Hepatitis-C; Ordered By:Nathan Barlow; Fnbea-8-Zjzuhowvarw, Serum; Specimen Source:Blood (BLD); Status:Active; Requested for:22Jun2019; Perform:Lab Services - Lab To Draw (Blood Test); Due:20Sep2019;Ordered; For:Hepatitis-C; Ordered By:Nathan Barlow; Anti Nuclear Antibody (without TED Panel); Specimen Source:Blood (BLD); Status:Active; Requested for:22Jun2019; Perform:Lab Services - Lab To Draw (Blood Test); Due:20Sep2019;Ordered; For:Hepatitis-C; Ordered By:Nathan Barlwo; Antimitochondrial Ab; Specimen Source:Blood (BLD); Status:Active; Requested [...] Liver; Status:Hold For - Scheduling; Requested for:22Jun2019; Perform:[facility] Radiology Services Imaging; Due:20Sep2019;Ordered; For:Hepatitis-C; Ordered [...] of hepatitis C and ways to Normal [facility] Office Visit (Internal Medic ine)on 06-10-2019 Follow-up [...] depression; LISA = N; Verified Transmission to [facility]; Last Updated By: [email or web address]; 05/20/2019 4:28:24 PM Medication management CONTROLLED MEDICATION AGREEMENT ; every 1 year; Next 16Jan2020; Status:Active For: 'Medication management'Ordered By: 'PRIMARY ASHL03 RN1, [id number]' URINE DRUG TOXICOLOGY ; every 1 year; Next 18Feb2020; Status:Active For: 'Medication management'Ordered By: 'PRIMARY ASHL03 RN1, [id number]' Restless legs syndrome Renew: Gabapentin 400 MG Oral Capsule; TAKE 1 CAPSULE 3 TIMES DAILY Rx By: Nini Wolf; Dispense: 30 Days ; #:90 Capsule; Refill: 2; For: Restless legs syndrome; LISA = N; Verified Transmission to [facility]; Msg to Pharmacy: OARRS REVIEWED. VOID SCRIPT AND REFILLS 90 DAYS AFTER PRESCRIBING DATE; Last Updated By: [email or web address]; 05/20/2019 4:28:25 PM SocHx: Cigarette smoker Start: Albuterol Sulfate HFA 108 (90 Base) MCG/ACT Inhalation Aerosol Solution; INHALE 2 PUFFS Every 6 hours PRN SOB/WHEEZING Rx By: Nini Wolf; Dispense: 30 Days ; #:1 X 6.7 GM Inhaler; Refill: 5; For: SocHx: Cigarette smoker; LISA = N; Verified Transmission to [facility]; Last Updated By: [employer]; 05/20/2019 4:28:23 PM Tobacco Use Screening; Status:Complete; Done: 20May2019 Perform:Not Applicable;Ordered; For:SocHx: Cigarette smoker; Ordered By:Nini Wolf; Start: Chantix 1 MG Oral Tablet; Take 1 tablet twice daily Rx By: Nini Wolf; Dispense: 30 Days ; #:60 Tablet; Refill: 4; For: SocHx: Cigarette smoker; LISA = N; Verified Transmission to [facility]; Msg to Pharmacy: TO START AFTER STARTER PACK; Last Updated By: [employer]; 05/20/2019 4:28:22 PM Start: Chantix Starting Month Lewis 0.5 MG X 11 AND 1 MG X 42 Oral Tablet; TAKE DIRECTED PER PACKAGE INSTRUCTIONS Rx By: Nini Wolf; Dispense: 0 Days ; #:1 X 53 Tablet Pack; Refill: 0; For: SocHx: Cigarette smoker; LISA = N; Verified Transmission to [facility]; Last Updated By: [email or web address]; 05/20/2019 4:28:24 PM Patient Discussion/Summary F/U 3 MONTHS GABAPENTIN REFILL Provider Impressions In light of the current pandemic related to Coronavirus causing COVID-19 illness, and in accordance with [facility] guidelines which encourage social distancing, I have [...] spent 10 (more content not included)... Normal [facility] Metabolic Panelon 02-17-2019 Creatinine [Mass/Vol] 88.3 mg/dL [facility] Work Phone: Comment on above: A urine creatinine r esult >= 20 mg/dL is considered valid without suspicion of dilution. Samples with results below this range will automatically reflex to specific gravity testing to verify specimen integrity. Otheron 02-17-2019 1-Hydroxymidazolam Confirm (U) [Mass/Vol] <25 Cutoff <25 [facility] Work Phone: 1-Zmjdncpdfc-7,5-Dime thyl-3,3-Diphenylpyrr olidine (EDDP) Confirm (U) [Mass/Vol] <25 Cutoff <25 [facility] Work Phone: Comment on above: The [...] (6-JACLYN) Confirm (U) [Mass/Vol] <25 Cutoff <25 [facility] Work Phone: 7-Aminoclonazepam Confirm (U) [Mass/Vol] <25 Cutoff <25 [facility] Work Phone: Alpha hydroxyalprazolam Confirm (U) [Mass/Vol] <25 Cutoff <25 [facility] Work Phone: Alprazolam Confirm (U) [Mass/Vol] <25 Cutoff <25 [facility] Work Phone: Amphetamines Screen Ql (U) Negative NEGATIVE [facility] Work Phone: Comment on above: CUTOFF LEVEL: 500 NG /ML Cross-reactivity has been reported with high concentrations of the following drugs: buproprion, chloroquine, chlorpromazine, ephedrine, mephentermine, fenfluramine, phentermine, phenylpropanolamine, pseudoephedrine, and propranolol. Benzoylecgonine Screen Ql (U) Negative NEGATIVE [facility] Work Phone: Comment on above: CUTOFF LEVEL: 150 NG /ML Chlordiazepoxide Confirm (U) [Mass/Vol] <25 Cutoff <25 [facility] Work Phone: Clonazepam Confirm (U) [Mass/Vol] <25 Cutoff <25 [facility] Work Phone: Codeine Confirm (U) [Mass/Vol] <25 Cutoff <25 [facility] Work Phone: Diazepam Confirm (U) [Mass/Vol] <25 Cutoff <25 [facility] Work Phone: Fentanyl Confirm (U) [Mass/Vol] <2.5 Cutoff<2.5 [facility] Work Phone: Hydrocodone Confirm (U) [Mass/Vol] <25 Cutoff <25 [facility] Work Phone: Hydromorphone Confirm (U) [Mass/Vol] <25 Cutoff <25 [facility] Work Phone: Lorazepam Confirm (U) [Mass/Vol] <25 Cutoff <25 [facility] Work Phone: Methadone Confirm (U) [Mass/Vol] <25 Cutoff <25 -[facility] Work Phone: Midazolam Confirm (U) [Mass/Vol] <25 Cutoff <25 -[facility] Work Phone: Morphine Confirm (U) [Mass/Vol] <25 Cutoff <25 [facility] Work Phone: Nordiazepam Confirm (U) [Mass/Vol] <25 Cutoff <25 [facility] Work Phone: Norfentanyl Confirm (U) [Mass/Vol] <2.5 Cutoff<2.5 -[facility] Work Phone: Comment on above: The [...] Norhydrocodone Confirm (U) [Mass/Vol] <25 Cutoff <25 [facility] Work Phone: Noroxycodone Confirm (U) [Mass/Vol] <25 Cutoff <25 [facility] Work Phone: Nortramadol (U) [Mass/Vol] <25 Cutoff <25 [facility] Work Phone: Comment on above: The [...] Oxazepam Confirm (U) [Mass/Vol] <25 Cutoff <25 [facility] Work Phone: Oxycodone Confirm (U) [Mass/Vol] <25 Cutoff <25 [facility] Work Phone: Oxymorphone Confirm (U) [Mass/Vol] <25 Cutoff <25 [facility] Work Phone: Comment on above: The [...] Temazepam Confirm (U) [Mass/Vol] <25 Cutoff <25 [facility] Work Phone: Comment on above: The [...] Tramadol Confirm (U) [Mass/Vol] <25 Cutoff <25 [facility] Work Phone: Zolpidem (U) [Mass/Vol] <25 Cutoff <25 [facility] Work Phone: SEE BELOW [facility] Work Phone: Comment on above: Drug [...] the laboratory medical directors. <25 Cutoff <25 [facility] Work Phone: Comment [...] 02-17-2019 Barbiturates Screen Ql (U) Negative NEGATIVE [facility] Work Phone: Comment on above: CUTOFF LEVEL: 200 NG /ML Cannabinoids Screen Ql (U) Negative NEGATIVE [facility] Work Phone: Comment on above: CUTOFF LEVEL: 50 NG/ ML Phencyclidine Ql (U) Negative NEGATIVE -[facility] Work Phone: Comment on above: CUTOFF LEVEL: 25 NG/ ML Cross-reactivity has been reported with dextromethorphan. Auto Diffon 11-14-2018 Basophils (Bld) [#/Vol] 0.1 E3/mcL Normal 0.0-0.2 [facility] Comment on above: Order Comment: Order Added by Discern Expert. Performed By: #### 2 [id number] #### [facility] [place] [address] Basophils/100 WBC (Bld) 1.0 % Normal 0.0-2.0 [facility] Comment on above: Order Comment: Order Added by Discern Expert. Performed By: #### 2 [id number] #### [facility]O [facility]emo [address] [place] [address] Eos Absolute 0.1 E3/mcL Normal 0.0-0.7 [facility] Comment on above: Order Comment: Order Added by Discern Expert. Performed By: #### 2 [id number] #### [facility] [address] [place] [address] Eosinophils/100 WBC (Bld) 1.2 % Normal 0.0-11.0 [facility] Comment on above: Order Comment: Order Added by Discern Expert. Performed By: #### 2 [id number] #### [facility] [employer] [address] [place] [address] Lymphocytes (Bld) [#/Vol] 3.2 E3/mcL Normal 1.2-3.4 [facility] Comment on above: Order Comment: Order Added by Discern Expert. Performed By: #### 2 [id number] #### [facility] [employer] [address] [place] [address] Lymphocytes/100 WBC (Bld) 36.5 % Normal 20.0-55.0 [facility] Comment on above: Order Comment: Order Added by Discern Expert. Performed By: #### 2 [id number] #### [facility] [address] [place] [address] Norman Absolute 0.5 E3/mcL Normal 0.0-0.7 [facility] Comment on above: Order Comment: Order Added by Discern Expert. Performed By: #### 2 [id number] #### [facility] [address] [place] [address] Monocytes/100 WBC (Bld) 5.7 % Normal 0.0-10.0 [facility] Comment on above: Order Comment: Order Added by Discern Expert. Performed By: #### 2 [id number] #### [facility] [address] [place] [address] Neutro Absolute 4.9 E3/mcL Normal 1.4-6.5 [facility] Comment on above: Order Comment: Order Added by Discern Expert. Performed By: #### 2 [id number] #### [facility] [address] [place] [address] Neutro Auto 55.6 % Normal 37.0-75.0 [facility] Comment on above: Order Comment: Order Added by Discern Expert. Performed By: #### 2 [id number] #### [facility] [address] [place] [address] BhCG Qualon 11-14-2018 Beta hCG Ql Negative Normal Negative [facility] Comment on above: Performed By: #### 2 [id number] #### LEO Chemistry Manual Subsection [address] [place] [address] CBC w/ Auto Diffon 9 Erythrocyte distribution width (RBC) [Ratio] 14.5 % Normal 11.5-14.5 [facility] Comment on above: Performed By: #### 2 [id number] #### [facility] [address] [place] [address] Hematocrit (Bld) [Volume fraction] 44.6 % Normal 36.0-48.0 [facility] Comment on above: Performed By: #### 2 [id number] #### [facility] [address] [place] [address] Hemoglobin (Bld) [Mass/Vol] 15.3 g/dL Normal 12.0-16.0 [facility] Comment on above: Performed By: #### 2 [id number] #### [facility] [address] [place] [address] MCH (RBC) [Entitic mass] 31.3 pg High 27.0-31.0 [facility] Comment on above: Performed By: #### 2 [id number] #### [facility] [address] [place] [address] MCHC (RBC) [Mass/Vol] 34.2 g/dL Normal 33.0-37.0 [facility] Comment on above: Performed By: #### 2 [id number] #### [facility] [address] [place] [address] MCV (RBC) [Entitic vol] 91.4 fL Normal 78.0-100.0 [facility] Comment on above: Performed By: #### 2 [id number] #### [facility] [address] [place] [address] Platelet mean volume (Bld) [Entitic vol] 8.4 fL Normal 7.4-11.0 [facility] Comment on above: Performed By: #### 2 [id number] #### [facility]O Reeder[facility]emo [address] [place] [address] Platelets (Bld) [#/Vol] 285 E3/mcL Normal 130-400 [facility] Comment on above: Performed By: #### 2 [id number] #### [facility] [address] [place] [address] RBC (Bld) [#/Vol] 4.88 E6/mcL Normal 3.90-5.40 [facility] Comment on above: Performed By: #### 2 [id number] #### LEO [employer]eder[facility] [address] [place] [address] WBC (Bld) [#/Vol] 8.8 E3/mcL Normal 3.6-11.0 [facility] Comment on above: Performed By: #### 2 490976 #### LEO Reeder[facility]emo [address] [place] [address] CMPon 11-14-2018 Albumin [Mass/Vol] 4.4 g/dL Normal 3.4-5.0 [facility] Comment on above: Performed By: #### 2 [id number] #### [facility] [address] [place] [address] Albumin/Globulin [Mass ratio] 1.3 {ratio} Normal 1.1-1.9 [facility] Comment on above: Performed By: #### 2 844529 #### [facility] [address] [place] [address] Alk Phos 82 Int._Unit/L Normal 33-110 [facility] Comment on above: Performed By: #### 2 [id number] #### [facility] [address] [place] [address] ALT [Catalytic activity/Vol] 41 Int._Unit/L Normal 7-45 [facility] Comment on above: Performed By: #### 2 [id number] #### [facility] [address] [place] [address] Anion gap [Moles/Vol] 14 mmol/L Normal 10-20 [facility] Comment on above: Performed By: #### 2 [id number] #### [facility] ReederD4P [address] [place] [address] AST [Catalytic activity/Vol] 51 Int._Unit/L High 9-39 [facility] Comment on above: Performed By: #### 2 [id number] #### [facility] [employer] [address] [place] [address] Bili Total 0.31 mg/dL Normal 0.00-1.20 [facility] Comment on above: Performed By: #### 2 [id number] #### [facility]des [employer] [address] [place] [address] Calcium [Mass/Vol] 8.9 mg/dL Normal 8.6-10.3 [facility] Comment on above: Performed By: #### 2 436329 #### [facility] [employer] [address] [place] [address] Chloride [Moles/Vol] 107 mmol/L Normal 98-107 [facility] Comment on above: Performed By: #### 2 188630 #### [employer] [employer] [address] [place] [address] CO2 [Moles/Vol] 22.0 mmol/L Normal 21.0-32.0 [facility] Comment on above: Performed By: #### 2 [id number] #### [facility]O [employer] [address] [place] [address] Creatinine [Mass/Vol] 0.8 mg/dL Normal 0.5-1.1 [facility] Comment on above: Performed By: #### 2 [id number] #### [facility] [address] [place] [address] Globulin (S) [Mass/Vol] 3.0 g/dL Normal 2.0-4.0 [facility] Comment on above: Performed By: #### 2 141368 #### [facility] [address] [place] [address] Glucose [Mass/Vol] 82 mg/dL Normal 70-99 [facility] Comment on above: Performed By: #### 2 880957 #### [facility] [address] [place] [address] Potassium [Moles/Vol] 4.0 mmol/L Normal 3.5-5.3 [facility] Comment on above: Performed By: #### 2 [id number] #### [facility] [address] [place] [address] Protein [Mass/Vol] 7.7 g/dL Normal 6.4-8.2 [facility] Comment on above: Performed By: #### 2 380231 #### [facility] [address] [place] [address] Sodium [Moles/Vol] 139 mmol/L Normal 136-145 [facility] Comment on above: Performed By: #### 2 914648 #### [facility] [address] [place] [address] Urea nitrogen [Mass/Vol] 8 mg/dL Normal 6-23 [facility] Comment on above: Performed By: #### 2 998525 #### [facility] [address] [place] [address] Urea nitrogen/Creatinine [Mass ratio] 10.0 ratio Normal 5.4-30.0 [facility] Comment on above: Performed By: #### 2 541932 #### [facility] [address] [place] [address] Ethanolon 11-14-2018 Ethanol [Mass/Vol] 151 mg/dL Critically abnormal <=10 [facility] Comment on above: Result Comment: Crit ical Result (s) Called to and read back by: JEFFREY ROBISON at: 11/13/2018 23:04:17 by:KEEGAN Performed By: #### 2 [id number] #### [facility] [address] [place] [address] Magnesiumon 11-14-2018 Magnesium [Mass/Vol] 2.3 mg/dL Normal 1.6-2.4 [facility] Comment on above: Performed By: #### 2 075685 #### [facility] [address] [place] [address] U Drug Screenon 11-14-2018 U Amph Scr Negative Normal Negative [facility] Comment on above: Performed By: #### 2 [id number] #### [facility]O [facility] [address] [place] [address] U Janell Scr Negative Normal Negative [facility] Comment on above: Performed By: #### 2 385192 #### [facility] [address] [place] [address] U Benzodia Scr Negative Normal Negative [facility] Comment on above: Performed By: #### 2 874900 #### [facility] [address] [place] [address] U Cannab Scr Negative Normal Negative [facility] Comment on above: Performed By: #### 2 228706 #### [facility]O [facility] [address] [place] [address] U Cocaine Scr Negative Normal Negative [facility] Comment on above: Performed By: #### 2 142895 #### [facility] [address] [place] [address] U Opiate Scr Negative Normal Negative [facility] Comment on above: Performed By: #### 2 936859 #### [facility]O [facility] [address] [place] [address] U PCP Scr Negative Normal Negative [facility] Comment on above: Performed By: #### 2 478182 #### LEO [facility] [address] [place] [address] UA Completeon 11-14-2018 Color (U) Yellow Normal Yellow [facility] Comment on above: Performed By: #### 8 [id number] #### LEO Urinalysis Automated Subsection [address] [place] [address] Glucose (U) [Mass/Vol] Negative Normal Negative [facility] Comment on above: Performed By: #### 8 [id number] #### LEO Urinalysis Automated Subsection [address] [place] [address] Ketones Ql (U) Negative Normal Negative [facility] Comment on above: Performed By: #### 8 [id number] #### LEO Urinalysis Automated Subsection [address] [place] [address] RBC (U) [#/Vol] 0-3 Normal 0-3 [facility] Comment on above: Performed By: #### 8 [id number] #### LEO Urinalysis Automated Subsection [address] [place] [address] UA Blood Negative Normal Negative [facility] Comment on above: Performed By: #### 8 [id number] #### [facility]O Urinalysis Automated Subsection [address] [place] [address] UA Bacteria 1+ /HPF Abnormal None [facility] Comment on above: Performed By: #### 8 [id number] #### LEO Urinalysis Automated Subsection [address] [place] [address] UA Clarity SltCloudy Abnormal Clear [facility] Comment on above: Performed By: #### 8 [id number] #### LEO Urinalysis Automated Subsection [facility] [place] [address] UA Leuk Est Negative Normal Negative [facility] Comment on above: Performed By: #### 8 [id number] #### LEO Urinalysis Automated Subsection [facility] [place] [address] UA Mucous Occasional Abnormal Trace [facility] Comment on above: Performed By: #### 8 [id number] #### LEO Urinalysis Automated Subsection [facility] [place] [address] UA Nitrite Negative Normal Negative [facility] Comment on above: Performed By: #### 8 [id number] #### LEO Urinalysis Automated Subsection [address] [place] [address] UA pH 6.0 Normal 4.6-8.0 [facility] Comment on above: Performed By: #### 8 [id number] #### LEO Urinalysis Automated Subsection [address] [place] [address] UA Protein Negative Normal Negative [facility] Comment on above: Performed By: #### 8 [id number] #### LEO Urinalysis Automated Subsection [facility] [place] [address] UA Spec Grav 1.009 Normal 1.003-1.030 [facility] Comment on above: Performed By: #### 8 [id number] #### LEO Urinalysis Automated Subsection [facility] [place] [address] UA Squam Epithelial 0-5 Normal 0-5 [facility] Comment on above: Performed By: #### 8 [id number] #### LEO Urinalysis Automated Subsection [facility] [place] [address] UA Urobilinogen Negative Normal [facility] Comment on above: Result Comment: Due to a manufacturing issue, low positive urobilinogen results may be fasely positive. Correlate with urine bilirubin and additional clinical/laboratory findings to assess the risk of hemolytic anemia or liver disease. If clinically indicated, repeat testing with an alternate method is available by contacting the laboratory within 24 hours. Performed By: #### 8 [id number] #### LEO Urinalysis Automated Subsection [address] [place] [id number] UA WBC 0-5 Normal 0-5 [facility] Comment on above: Performed By: #### 8 [id number] #### LEO Urinalysis Automated Subsection [facility] [place] [address] Urobilinogen Qn (U) Negative Normal Negative [facility] Comment on above: Performed By: #### 8 [id number] #### LEO Urinalysis Automated Subsection [facility] [place] [address] eGFRon 11-14-2018 GFR/1.73 sq M predicted among non-blacks MDRD (S/P/Bld) [Vol rate/Area] mL/min/{1.73_m2} Normal [facility] Comment on above: Order Comment: Order added by Discern Expert. Performed By: #### 1 [id number] #### LEO [facility] [address] [place], [place] [address] APTTon 11-01-2018 aPTT Coag (Bld) [Time] 20.7 s Low [place], [place] Comment on above: PTT Therapeutic Range: 61.7-88.4 Therapeutic range corresponds to plasma heparin levels of 0.3-0.7 U/mL. CBC Auto Differentialon 10-13 Basophils (Bld) [#/Vol] 0.00 10*3/uL [place], [place] Basophils/100 WBC (Bld) 0 % 0 - 2 % [place] Differential Type YES [place] Eosinophils (Bld) [#/Vol] 0.10 10*3/uL [place] Eosinophils/100 WBC (Bld) 1 % 0 - 5 % [place] Erythrocyte distribution width (RBC) [Ratio] 14.4 % 12.1 - 15.2 % [place] Hematocrit (Bld) [Volume fraction] 40.4 % 36 - 46 % [place] Hemoglobin (Bld) [Mass/Vol] 13.6 g/dL 12 - 16 g/dL [place] Interpretation and review of laboratory results Abnormal [place] Lymphocytes (Bld) [#/Vol] 2.50 10*3/uL [place] Lymphocytes/100 WBC (Bld) 23 % 15 - 40 % [place] MCH (RBC) [Entitic mass] 30.6 pg 26 - 34 pg [place] MCHC (RBC) [Mass/Vol] 33.7 g/dL 31 - 37 g/dL [place] MCV (RBC) [Entitic vol] 90.9 fL 80 - 100 fL [place] Monocytes (Bld) [#/Vol] 0.10 10*3/uL [place] Monocytes/100 WBC (Bld) 1 % Low 4 - 8 % [place] Platelet mean volume (Bld) [Entitic vol] NOT REPORTED 6 - 12 fL [place], [place] Platelets (Bld) [#/Vol] NOT REPORTED [place] Platelets (Bld) [#/Vol] 188 10*3/uL [place] RBC (Bld) [#/Vol] 4.45 10*6/uL 4 - 5.2 m/uL [place], [place] RBC morphology finding Nom (Bld) NOT REPORTED [place] Segmented neutrophils/100 WBC (Bld) 75 % 47 - 75 % [place] Segs Absolute 8.30 High [place] WBC (Bld) [#/Vol] 11.0 10*3/uL [place] WBC (Bld) [#/Vol] NOT REPORTED per 100 WBC [place] WBC Morphology NOT REPORTED [place], [place] Comprehensive Metabolic Pane mary beth 11-01-2018 Albumin [Mass/Vol] 4.5 g/dL 3.5 - 5.2 g/dL [place] Albumin/Globulin [Mass ratio] NOT REPORTED [place] ALP [Catalytic activity/Vol] 80 U/L 35 - 104 U/L [place] ALT [Catalytic activity/Vol] 45 U/L High 5 - 33 U/L [place] Anion gap [Moles/Vol] 10 mmol/L 9 - 17 mmol/L [place] AST [Catalytic activity/Vol] 46 U/L High <32 [place] Bilirubin Ql (U) 0.33 mg/dL 0.3 - 1.2 mg/dL [place] Bun/Cre Ratio 18 [place] Calcium [Mass/Vol] 9.7 mg/dL 8.6 - 10. 4 mg/dL [place] Chloride [Moles/Vol] 100 mmol/L 98 - 10 7 mmol/L [place] CO2 [Moles/Vol] 25 mmol/L 20 - 31 mmol/L [place] Creatinine [Mass/Vol] 0.6 mg/dL 0.5 - 0.9 mg/dL [place] GFR >60 >60 mL/min [place] GFR Non- >60 >60 mL/min [place] GFR/1.73 sq M predicted among non-blacks MDRD (S/P/Bld) [Vol rate/Area] [place] Comment on above: Average GFR for 20-2 9 years old: 116 mL/min/1.73sq m Chronic Kidney Disease: <60 mL/min/1.73sq m Kidney failure: <15 mL/min/1.73sq m eGFR calculated using average adult body mass. Additional eGFR calculator available at: http://www.Pitchbrite.Tu Closet Mi Closet/multiple_crcl_2012.htm GFR/1.73 sq M predicted among non-blacks MDRD (S/P/Bld) [Vol rate/Area] NOT REPORTED [place] Glucose [Mass/Vol] 87 mg/dL 70 - 99 mg/dL [place] Interpretation and review of laboratory results Abnormal [place] Potassium [Moles/Vol] 4.0 mmol/L 3.7 - 5.3 mmol/L [place] Protein [Mass/Vol] 8.2 g/dL 6.4 - 8.3 g/dL [place] Sodium [Moles/Vol] 135 mmol/L 135 - 144 mmol/L [place] Urea nitrogen [Mass/Vol] 11 mg/dL 6 - 20 mg/dL [place] D-dimer, quantitativeon 10-13 D-Dimer, Quant 0.52 [place] Comment on above: Elevated levels of [...] Interpretation and review of laboratory results Abnormal [place] Immature granulocytes (Bld) [#/Vol] NOT REPORTED [place] Protime-INRon 11-01-2018 INR Coag (PPP) [Relative time] 1.0 {INR} [place] Comment on above: * THERAPY INDICATIONS * REFERENCE RANGES Pts not on anti-coagulants 1.0 - 1.5 INR Low risk pts on anti-coagulants 2.0 - 3.0 INR High risk pts on anti-coagulants 2.5 - 3.5 INR Prevention of atrial thrombo-embolism 3.0 - 4.5 INR PT Coag (PPP) [Time] 9.7 s [place] Alcoholon 06-21-2018 Ethanol mass conc 0.165 G/dL Normal [facility] Comment on above: Performed By: #### A [facility] #### [facility] [address] [place] [address] Ethanol mass conc 188 mg/dL Normal [facility] Comment on above: Performed By: #### A [facility] #### [facility] [address] [place] [address] CBC With Platelet and Differ entialon 06-21-2018 Basophils #/vol (Bld) 0.1 10*3/uL Normal 0.0-0.2 Me [facility] Comment on above: Performed By: #### C BCWD #### [facility] [address] [place] [address] Basophils/100 WBC (Bld) 1.0 % Normal [facility] Comment on above: Performed By: #### C BCWD #### [facility] [address] [place] [address] Eosinophils #/vol (Bld) 0.0 10*3/uL Normal 0.0-0.7 [facility] Comment on above: Performed By: #### C BCWD #### [facility] [address] [place] [address] Eosinophils/100 WBC (Bld) 0.2 % Normal [facility] Comment on above: Performed By: #### C BCWD #### [facility] [address] [place] [address] Erythrocyte distribution width Ratio (RBC) 14.6 % Critically high 11.5-14.5 [facility] Comment on above: Performed By: #### C BCWD #### [facility] [address] [place] [address] Hematocrit Volume Fraction (Bld) 43.0 % Normal 37.0-47.0 [facility] Comment on above: Performed By: #### C BCWD #### [facility] [address] [place] [address] Hemoglobin mass conc (Bld) 14.6 g/dL Normal 12.0-16.0 [facility] Comment on above: Performed By: #### C BCWD #### [facility] [address] [place] [address] Lymphocytes #/vol (Bld) 3.7 10*3/uL Normal 1.0-4.8 [facility] Comment on above: Performed By: #### C BCWD #### [facility] [address] [place] [address] Lymphocytes/100 WBC (Bld) 50.2 % Normal [facility] Comment on above: Performed By: #### C BCWD #### [facility] [address] [place] [address] MCH Entitic mass (RBC) 30.3 pg Normal 27.0-31.3 [facility] Comment on above: Performed By: #### C BCWD #### [facility] [address] [place] [address] MCHC mass conc (RBC) 33.9 % Normal 33.0-37.0 [facility] Comment on above: Performed By: #### C BCWD #### [facility] [address] [place] [address] MCV Entitic volume (RBC) 89.4 fL Normal 82.0-100.0 [facility] Comment on above: Performed By: #### C BCWD #### [facility] [address] [place] [address] Monocytes #/vol (Bld) 0.3 10*3/uL Normal 0.2-0.8 [facility] Comment on above: Performed By: #### C BCWD #### [facility] [address] [place] [address] Monocytes/100 WBC (Bld) 3.5 % Normal [facility] Comment on above: Performed By: #### C BCWD #### [facility] [address] [place] [address] Neutrophils #/vol (Bld) 3.3 10*3/uL Normal 1.4-6.5 [facility] Comment on above: Performed By: #### C BCWD #### [facility] [address] [place] [address] Neutrophils/100 WBC (Bld) 45.1 % Normal [facility] Comment on above: Performed By: #### C BCWD #### [facility] [address] [place] [address] Platelets #/vol (Bld) 253 10*3/uL Normal 130-400 [facility] Comment on above: Performed By: #### C BCWD #### [facility] [address] [place] [address] RBC #/vol (Bld) 4.81 10*6/uL Normal 4.20-5.40 [facility] Comment on above: Performed By: #### C BCWD #### [facility] [address] [place] [address] WBC #/vol (Bld) 7.3 10*3/uL Normal 4.8-10.8 [facility] Comment on above: Performed By: #### C BCWD #### [facility] [address] [place] [address] Comprehensive Metabolic Pane mary beth 06-21-2018 Albumin mass conc 4.8 g/dL Critically high 3.5-4.6 [facility] Comment on above: Performed By: #### C MP #### [facility] [address] [place] [address] ALP enzyme act/vol 76 U/L Normal 40-130 [facility] Comment on above: Performed By: #### C MP #### [facility] [address] [place] [address] ALT enzyme act/vol 130 U/L Critically high 0-33 M [facility] Comment on above: Performed By: #### C MP #### [facility] [address] [place] [address] Anion gap molar conc 18 mmol/L Critically high 9-15 [facility] Comment on above: Performed By: #### C MP #### [facility] [address] [place] [address] AST enzyme act/vol 86 U/L Critically high 0-35 M [facility] Comment on above: Performed By: #### C MP #### [facility] [address] [place] [address] Bilirubin mass conc 0.3 mg/dL Normal 0.2-0.7 [facility] Comment on above: Performed By: #### C MP #### [facility] [address] [place] [address] Calcium mass conc 8.5 mg/dL Normal 8.5-9.9 [facility] Comment on above: Performed By: #### C MP #### [facility] [address] [place] [address] Chloride molar conc 105 mmol/L Normal 95-107 [facility] Comment on above: Performed By: #### C MP #### [facility] [address] [place] [address] CO2 molar conc 23 mmol/L Normal 20-31 [facility] Comment on above: Performed By: #### C MP #### [facility] [address] [place] [address] Creatinine mass conc 0.61 mg/dL Normal 0.50-0.90 [facility] Comment on above: Performed By: #### C MP #### [facility] [address] [place] [address] GFR/1.73 sq M predicted among blacks MDRD vol rate/area (S/P/Bld) mL/min/{1.73_m2} Normal >60 [facility] Comment on above: Result Comment: >60 mL/min/1.73m2 EGFR, calc. for ages 18 and older using the MDRD formula (not corrected for weight), is valid for stable renal function. Performed By: #### C MP #### [facility] [address] [place] [address] GFR/1.73 sq M.predicted MDRD vol rate/area mL/min/{1.73_m2} Normal >60 [facility] Comment on above: Result Comment: >60 mL/min/1.73m2 EGFR, calc. for ages 18 and older using the MDRD formula (not corrected for weight), is valid for stable renal function. Performed By: #### C MP #### [facility] [address] [place] [address] Globulin mass conc (S) 3.2 g/dL Normal 2.3-3.5 [facility] Comment on above: Performed By: #### C MP #### [facility] [address] [place] [address] Glucose mass conc 108 mg/dL Critically high 70-99 [facility] Comment on above: Performed By: #### C MP #### [facility] [address] [place] [address] Potassium molar conc 3.8 mmol/L Normal 3.4-4.9 [facility] Comment on above: Performed By: #### C MP #### [facility] [address] [place] [address] Protein mass conc 8.0 g/dL Normal 6.3-8.0 [facility] Comment on above: Performed By: #### C MP #### [facility] [address] [place] [address] Sodium molar conc 146 mmol/L Critically high 135-144 [facility] Comment on above: Performed By: #### C MP #### [facility] [address] [place] [address] Urea nitrogen mass conc 9 mg/dL Normal 6-20 [facility] Comment on above: Performed By: #### C MP #### [facility] [address] [place] [address] Lactic Acidon 06-21-2018 Lactate molar conc 2.3 mmol/L Critically high 0.5-2.2 M [facility] Comment on above: Performed By: #### L ACID #### [facility] [address] [place] [address] Troponinon 06-21-2018 Troponin I.cardiac mass conc ng/mL Normal 0.000-0.01 [facility] Comment on above: Result Comment: Meth odology by Troponin T. Performed By: #### T ROP #### [facility] [address] [place] [address] XR CHEST PORTABLEon 06-22-19 XR CHEST PORTABLE [...] Dos Santos DO 06/21/18 Final result Normal [facility] Vital Signs Date Time Vital Sign Value Performing Clinician Facility 08-10-2023 07:29-0400 Body temperature 97.3 [degF] Diamante Cleveland Work Phone: [phone] [place] [address] 08-10-2023 07:29-0400 Diastolic blood pressure 92 mm[Hg] Diamante Cleveland Work Phone: 1(460)[phone] [place] [address] 08-10-2023 07:29-0400 Heart rate 68 /min Diamante Cleveland Work Phone: [facility] 08-10-2023 07:29-0400 Respiratory rate 18 /min Diamante Cleveland Work Phone: [facility] 08-10-2023 07:29-0400 SaO2% (BldA) [Mass fraction] 97 % Diamante Cleveland Work Phone: [facility] 08-10-2023 07:29-0400 Systolic blood pressure 125 mm[Hg] Diamante Cleveland Work Phone: [facility] 08-07-2023 14:23-0400 Body height 157.48 cm Diamante Cleveland Work Phone: [facility] 08-06-2023 22:28-0400 Body weight 73.79 kg Diamante Cleveland Work Phone: [facility] 08-06-2023 20:35-0400 Diastolic blood pressure 80 mm[Hg] Eric Benavideze [facility] 08-06-2023 20:35-0400 Heart rate 106 /min Eric Benaviedze [facility] 08-06-2023 20:35-0400 Mean blood pressure 92 mm[Hg] Eric Benavideze [facility] 08-06-2023 20:35-0400 Respiratory rate 16 /min Eric Benavideze [facility] 08-06-2023 20:35-0400 SaO2% (BldA) [Mass fraction] 96 % Eric Benavideze [facility] 08-06-2023 20:35-0400 Systolic blood pressure 115 mm[Hg] Eric Benavideze [facility] 08-06-2023 15:52-0400 Body temperature 98.78 [degF] Eric Benavideze [facility] 08-06-2023 15:52-0400 Diastolic blood pressure 88 mm[Hg] Eric Benavideze [facility] 08-06-2023 15:52-0400 Heart rate 104 /min Eric Benavideze [facility] 08-06-2023 15:52-0400 Respiratory rate 18 /min Eric Benavideze [facility] 08-06-2023 15:52-0400 SaO2% (BldA) [Mass fraction] 95 % Eric Benavideze [facility] 08-06-2023 15:52-0400 Systolic blood pressure 130 mm[Hg] Eric Leidy [facility] 07-14-2023 11:01-0400 Blood Pressure Location Mike Spear [facility] 07-14-2023 11:01-0400 Body temperature 97.34 [degF] Mike Spear [facility] 07-14-2023 11:01-0400 Diastolic blood pressure 88 mm[Hg] Mike Spear [facility] 07-14-2023 11:01-0400 Heart rate 71 /min Mike Spear [facility] 07-14-2023 11:01-0400 SaO2% (BldA) [Mass fraction] 98 % Mike Spear [facility] 07-14-2023 11:01-0400 Systolic blood pressure 138 mm[Hg] Mike Spear [facility] 07-05-2023 21:38-0400 Diastolic blood pressure 108 mm[Hg] Isai Hall [facility] 07-05-2023 21:38-0400 Heart rate 90 /min Isai Hall [facility] 07-05-2023 21:38-0400 Mean blood pressure 124 mm[Hg] Isai Hall [facility] 07-05-2023 21:38-0400 Respiratory rate 16 /min Isai Hall [facility] 07-05-2023 21:38-0400 SaO2% (BldA) [Mass fraction] 98 % Isai Hall [facility] 07-05-2023 21:38-0400 Systolic blood pressure 157 mm[Hg] Isai Hall [facility] 07-05-2023 10:38-0400 Body temperature 98.78 [degF] Isai Hall [facility] 07-05-2023 10:38-0400 Diastolic blood pressure 103 mm[Hg] Isai Hall [facility] 07-05-2023 10:38-0400 Heart rate 105 /min Isai Hall [facility] 07-05-2023 10:38-0400 Respiratory rate 20 /min Isai Hall [facility] 07-05-2023 10:38-0400 SaO2% (BldA) [Mass fraction] 97 % Isai Hall [facility] 07-05-2023 10:38-0400 Systolic blood pressure 145 mm[Hg] Isai Hall [facility] 07-03-2023 10:00-0400 Diastolic blood pressure 91 mm[Hg] Kaushik Sparks [facility] 07-03-2023 10:00-0400 Heart rate 85 /min Kaushik Samanta [facility] 07-03-2023 10:00-0400 Mean blood pressure 105 mm[Hg] Kaushik Samanta [facility] 07-03-2023 10:00-0400 Respiratory rate 15 /min Kaushik Samanta [facility] 07-03-2023 10:00-0400 SaO2% (BldA) [Mass fraction] 96 % Kaushik Samanta [facility] 07-03-2023 10:00-0400 Systolic blood pressure 133 mm[Hg] Kaushik Samanta [facility] 07-03-2023 09:00-0400 Diastolic blood pressure 102 mm[Hg] Kaushik Samanta [facility] 07-03-2023 09:00-0400 Heart rate 93 /min Kaushik Samanta [facility] 07-03-2023 09:00-0400 Mean blood pressure 113 mm[Hg] Kaushik Samanta [facility] 07-03-2023 09:00-0400 Systolic blood pressure 135 mm[Hg] Kaushik Samanta [facility] 07-03-2023 08:30-0400 Diastolic blood pressure 94 mm[Hg] Kaushik Samanta [facility] 07-03-2023 08:30-0400 Heart rate 98 /min Kaushik Samanta [facility] 07-03-2023 08:30-0400 Mean blood pressure 107 mm[Hg] Kaushik Samanta [facility] 07-03-2023 08:30-0400 Respiratory rate 12 /min Kaushik Samanta [facility] 07-03-2023 08:30-0400 SaO2% (BldA) [Mass fraction] 97 % Kaushik Samanta [facility] 07-03-2023 08:30-0400 Systolic blood pressure 132 mm[Hg] Kaushik Samanta [facility] 07-03-2023 08:04-0400 gluc 109 mg/dL Kaushik Samanta [facility] 07-03-2023 07:56-0400 Heart rate 101 /min Kaushik Samanta [facility] 07-03-2023 07:31-0400 Body temperature 98.6 [degF] Kaushik Samanta [facility] 07-03-2023 07:31-0400 Heart rate 122 /min Kaushik Samanta [facility] 07-03-2023 07:31-0400 Respiratory rate 18 /min Kaushik Samanta [facility] 06-30-2023 23:42-0400 Blood Pressure Location Isai Hall [facility] 06-30-2023 23:42-0400 Diastolic blood pressure 109 mm[Hg] Isai Rafael [facility] 06-30-2023 23:42-0400 Heart rate 113 /min Isai Rafael [facility] 06-30-2023 23:42-0400 Mean blood pressure 117 mm[Hg] Isai Rafael [facility] 06-30-2023 23:42-0400 Respiratory rate 16 /min Isai Rafael [facility] 06-30-2023 23:42-0400 SaO2% (BldA) [Mass fraction] 98 % Isai Rafael [facility] 06-30-2023 23:42-0400 Systolic blood pressure 133 mm[Hg] Isai Rafael [facility] 06-30-2023 20:47-0400 Blood Pressure Location Isai Rafael [facility] 06-30-2023 20:47-0400 Diastolic blood pressure 92 mm[Hg] Isai Rafael [facility] 06-30-2023 20:47-0400 Heart rate 113 /min Isai Rafael [facility] 06-30-2023 20:47-0400 Mean blood pressure 100 mm[Hg] Isai Rafael [facility] 06-30-2023 20:47-0400 Respiratory rate 16 /min Isai Rafael [facility] 06-30-2023 20:47-0400 SaO2% (BldA) [Mass fraction] 97 % Isai Rafael [facility] 06-30-2023 20:47-0400 Systolic blood pressure 115 mm[Hg] Isai Rafael [facility] 06-30-2023 19:46-0400 Respiratory rate 16 /min Isai Rafael [facility] 06-30-2023 18:00-0400 Heart rate 82 /min Isai Rafael [facility] 06-30-2023 18:00-0400 SaO2% (BldA) [Mass fraction] 94 % Isai Hall [facility] 06-30-2023 16:30-0400 Diastolic blood pressure 105 mm[Hg] Isai Hall [facility] 06-30-2023 16:30-0400 Heart rate 61 /min Isai Rafael [facility] 06-30-2023 16:30-0400 Systolic blood pressure 122 mm[Hg] Isai Rafael [facility] 06-30-2023 15:30-0400 Heart rate 65 /min Isai Rafael [facility] 06-30-2023 13:45-0400 Body temperature 98.6 [degF] Isai Rafael [facility] 06-30-2023 13:45-0400 Heart rate 79 /min Isai Rafael [facility] 06-17-2023 15:32-0400 Blood Pressure Location Mike Rainer [facility] 06-17-2023 15:32-0400 Body temperature 98.24 [degF] Mike Spear [facility] 06-17-2023 15:32-0400 Diastolic blood pressure 84 mm[Hg] Mike Spear [facility] 06-17-2023 15:32-0400 Heart rate 73 /min Mike Spear [facility] 06-17-2023 15:32-0400 SaO2% (BldA) [Mass fraction] 93 % Mike Spear [facility] 06-17-2023 15:32-0400 Systolic blood pressure 128 mm[Hg] Mike Spear [facility] 06-03-2023 20:28-0400 Body temperature 98.24 [degF] Kaylinn Dokken [facility] 06-03-2023 20:28-0400 Diastolic blood pressure 92 mm[Hg] Kaylinn Dokken [facility] 06-03-2023 20:28-0400 Heart rate 76 /min Kaylinn Dokken [facility] 06-03-2023 20:28-0400 SaO2% (BldA) [Mass fraction] 95 % Kaylinn Dokken [facility] 06-03-2023 20:28-0400 Systolic blood pressure 149 mm[Hg] Kaylinn Dokken [facility] 04-25-2023 20:12-0400 Diastolic blood pressure 74 mm[Hg] [employer]EARCH [employer] Amanda Robuck Work Phone: [facility] 04-25-2023 20:12-0400 Heart rate 108 /min [employer] Amanda Robuck Work Phone: [facility] 04-25-2023 20:12-0400 Respiratory rate 19 /min LOGAN Patel Robuck Work Phone: [facility] 04-25-2023 20:12-0400 SaO2% (BldA) [Mass fraction] 95 % LOGAN Barrios Work Phone: [facility] 04-25-2023 20:12-0400 Systolic blood pressure 127 mm[Hg] LOGAN Barrios Work Phone: [facility] 04-25-2023 17:45-0400 Body height 157.48 cm LOGAN Barrios Work Phone: [facility] 04-25-2023 17:45-0400 Body temperature 97.8 [degF] LOGAN Barrios Work Phone: [facility] 04-25-2023 17:45-0400 Body weight 72.2 kg LOGAN Barrios Work Phone: [facility] 04-19-2023 22:01-0500 Body temperature 98.06 [degF] Neryylinn Dokken [facility] 04-19-2023 22:01-0500 Diastolic blood pressure 100 mm[Hg] Kaylinn Dokken [facility] 04-19-2023 22:01-0500 Heart rate 70 /min Neryylinn Dokken [facility] 04-19-2023 22:01-0500 Respiratory rate 25 /min Kaylinn Dokken [facility] 04-19-2023 22:01-0500 SaO2% (BldA) [Mass fraction] 99 % Kaylinn Dokken [facility] 04-19-2023 22:01-0500 Systolic blood pressure 135 mm[Hg] Kerry Linton [facility] 04-08-2023 19:59-0500 Body height 157.48 cm [employer] Amanda Robuck Work Phone: [facility] 04-08-2023 19:59-0500 Body temperature 98.3 [degF] [employer]EARCH [employer]PER[employer] Amanda Robuck Work Phone: [facility] 04-08-2023 19:59-0500 Body weight 73 kg [employer] Amanda Robuck Work Phone: [facility] 04-08-2023 19:59-0500 Diastolic blood pressure 75 mm[Hg] RESEARCH [employer] SUPER[employer] Amanda Robuck Work Phone: [facility] 04-08-2023 19:59-0500 Heart rate 87 /min [employer]PER[employer] Amanda Robuck Work Phone: [facility] 04-08-2023 19:59-0500 Respiratory rate 21 /min [employer]EARCH [employer]PER[employer] Amanda Robuck Work Phone: [facility] 04-08-2023 19:59-0500 SaO2% (BldA) [Mass fraction] 100 % [employer]PER[employer] Amanda Robuck Work Phone: [facility] 04-08-2023 19:59-0500 Systolic blood pressure 143 mm[Hg] RESEARCH [employer]PER[employer] Amanda Robuck Work Phone: [facility] 04-06-2023 21:12-0500 Diastolic blood pressure 93 mm[Hg] Diamante Cleveland Work Phone: [facility] 04-06-2023 21:12-0500 Heart rate 110 /min Diamante Cleveland Work Phone: [facility] 04-06-2023 21:12-0500 Respiratory rate 18 /min Diamante Cleveland Work Phone: [facility] 04-06-2023 21:12-0500 SaO2% (BldA) [Mass fraction] 93 % Diamante Cleveland Work Phone: [facility] 04-06-2023 21:12-0500 Systolic blood pressure 140 mm[Hg] Diamante Cleveland Work Phone: [facility] 04-06-2023 16:37-0500 Body height 157.48 cm Diamante Cleveland Work Phone: [facility] 04-06-2023 16:37-0500 Body temperature 97.9 [degF] Diamante Cleveland Work Phone: [facility] 04-06-2023 16:37-0500 Body weight 72 kg Diamante Cleveland Work Phone: [facility] 03-17-2023 11:19-0500 Diastolic blood pressure 84 mm[Hg] Diamante Cleveland Work Phone: [facility] 03-17-2023 11:19-0500 Heart rate 80 /min Diamante Cleveland Work Phone: [facility] 03-17-2023 11:19-0500 Respiratory rate 18 /min Diamante Cleveland Work Phone: [facility] 03-17-2023 11:19-0500 SaO2% (BldA) [Mass fraction] 99 % Diamante Cleveland Work Phone: [facility] 03-17-2023 11:19-0500 Systolic blood pressure 115 mm[Hg] Diamante Cleveland Work Phone: [facility] 03-17-2023 08:31-0500 Body height 157.48 cm Diamante Cleveland Work Phone: [facility] 03-17-2023 08:31-0500 Body temperature 98.1 [degF] Diamante Cleveland Work Phone: [facility] 03-17-2023 08:31-0500 Body weight 71.2 kg Diamante Cleevland Work Phone: [facility] 03-12-2023 15:51-0500 Heart rate 74 /min Diamante Cleveland Work Phone: [facility] 03-12-2023 15:48-0500 Body height 157.48 cm Diamante Cleveland Work Phone: [facility] 03-12-2023 15:48-0500 Body temperature 97.6 [degF] Diamante Cleveland Work Phone: [facility] 03-12-2023 15:48-0500 Body weight 71 kg Diamante Cleveland Work Phone: [facility] 03-12-2023 15:48-0500 Diastolic blood pressure 92 mm[Hg] Diamante Cleveland Work Phone: [facility] 03-12-2023 15:48-0500 Respiratory rate 16 /min Diamante Cleveland Work Phone: [facility] 03-12-2023 15:48-0500 SaO2% (BldA) [Mass fraction] 97 % Diamante Cleveland Work Phone: [facility] 03-12-2023 15:48-0500 Systolic blood pressure 128 mm[Hg] Diamante Cleveland Work Phone: [facility] 03-04-2023 19:06-0500 Body height 154.94 cm DO Ari More Work Phone: [facility] 03-04-2023 19:06-0500 Body temperature 97.8 [degF] DO Ari More Work Phone: [facility] 03-04-2023 19:06-0500 Body weight 71 kg DO Ari More Work Phone: [facility] 03-04-2023 19:06-0500 Diastolic blood pressure 97 mm[Hg] DO Ari More Work Phone: [facility] 03-04-2023 19:06-0500 Heart rate 89 /min DO Ari More Work Phone: [facility] 03-04-2023 19:06-0500 Respiratory rate 25 /min DO Ari More Work Phone: [facility] 03-04-2023 19:06-0500 SaO2% (BldA) [Mass fraction] 95 % DO Ari More Work Phone: [facility] 03-04-2023 19:06-0500 Systolic blood pressure 135 mm[Hg] DO Ari More Work Phone: [facility] 01-25-2023 06:21-0500 Diastolic blood pressure 68 mm[Hg] DO Ari More Work Phone: [facility] 01-25-2023 06:21-0500 Heart rate 88 /min DO Ari More Work Phone: [facility] 01-25-2023 06:21-0500 Respiratory rate 18 /min DO Ari More Work Phone: [facility] 01-25-2023 06:21-0500 SaO2% (BldA) [Mass fraction] 97 % DO Ari More Work Phone: [facility] 01-25-2023 06:21-0500 Systolic blood pressure 102 mm[Hg] DO Ari More Work Phone: [facility] 01-25-2023 01:01-0500 Body height 157.48 cm DO Ari More Work Phone: [facility] 01-25-2023 01:01-0500 Body temperature 98.9 [degF] DO Ari More Work Phone: [facility] 01-25-2023 01:01-0500 Body weight 65.77 kg DO Ari More Work Phone: [facility] 01-19-2023 12:00-0500 Diastolic blood pressure 89 mm[Hg] DO Ari More Work Phone: [facility] 01-19-2023 12:00-0500 Heart rate 82 /min DO Ari More Work Phone: [facility] 01-19-2023 12:00-0500 Respiratory rate 22 /min DO Ari More Work Phone: [facility] 01-19-2023 12:00-0500 SaO2% (BldA) [Mass fraction] 99 % DO Ari More Work Phone: [facility] 01-19-2023 12:00-0500 Systolic blood pressure 143 mm[Hg] DO Ari More Work Phone: [facility] 01-19-2023 10:33-0500 Body height 161.29 cm DO Ari More Work Phone: [facility] 01-19-2023 10:33-0500 Body temperature 97.7 [degF] DO Ari More Work Phone: [facility] 01-19-2023 10:33-0500 Body weight 71 kg DO Ari More Work Phone: [facility] 01-08-2023 13:57-0500 Body height 154.94 cm [employer]EARCH [employer]PER[employer] Amanda Robuck Work Phone: [facility] 01-08-2023 13:57-0500 Body temperature 98.1 [degF] [employer]EARCH [employer] SUPER[employer]OR Amanda Robuck Work Phone: [facility] 01-08-2023 13:57-0500 Body weight 71.2 kg [employer]EARCH [employer] SUPER[employer] Amanda Robuck Work Phone: [facility] 01-08-2023 13:57-0500 Diastolic blood pressure 88 mm[Hg] [employer]EARCH [employer] SUPER[employer] Amanda Robuck Work Phone: [facility] 01-08-2023 13:57-0500 Heart rate 100 /min [employer] SUPER[employer] Amanda Robuck Work Phone: [facility] 01-08-2023 13:57-0500 Respiratory rate 20 /min [employer]PER[employer] Amanda Robuck Work Phone: [facility] 01-08-2023 13:57-0500 SaO2% (BldA) [Mass fraction] 98 % [employer] SUPER[employer] Amanda Robuck Work Phone: [facility] 01-08-2023 13:57-0500 Systolic blood pressure 149 mm[Hg] [employer]EARCH [employer] SUPER[employer]OR Amanda Robuck Work Phone: [facility] 01-06-2023 14:00-0500 Heart rate 58 /min Azra EDISON [facility] 01-06-2023 14:00-0500 Hourly Rounding Azra EDISON [facility] 01-06-2023 14:00-0500 Promise to Return Azra EDISON [facility] 01-06-2023 14:00-0500 Respiratory rate 12 /min Azra EDISON [facility] 01-06-2023 14:00-0500 SaO2% (BldA) [Mass fraction] 98 % Azra EDISON [facility] 01-06-2023 13:20-0500 Hourly Rounding Azra EDISON [facility] 01-06-2023 13:20-0500 Promise to Return Azra EDISON [facility] 01-06-2023 13:00-0500 Heart rate 56 /min Azra EDISON [facility] 01-06-2023 12:27-0500 Hourly Rounding Azramalorie JENSENSLIN [facility] 01-06-2023 12:27-0500 Promise to Return Azramalorie JENSENSLIN [facility] 01-06-2023 12:00-0500 Diastolic blood pressure 88 mm[Hg] Azra EDISON [facility] 01-06-2023 12:00-0500 Heart rate 66 /min Azra EDISON [facility] 01-06-2023 12:00-0500 Mean blood pressure 111 mm[Hg] Azra EDISON [facility] 01-06-2023 12:00-0500 SaO2% (BldA) [Mass fraction] 97 % Azra EDISON [facility] 01-06-2023 12:00-0500 Systolic blood pressure 158 mm[Hg] Azra EDISON [facility] 01-06-2023 10:00-0500 Diastolic blood pressure 105 mm[Hg] Azra EDISON [facility] 01-06-2023 10:00-0500 Mean blood pressure 117 mm[Hg] Azra EDISON [facility] 01-06-2023 10:00-0500 Systolic blood pressure 141 mm[Hg] Azra EDISON [facility] 01-06-2023 09:00-0500 Diastolic blood pressure 99 mm[Hg] Azra EDISON [facility] 01-06-2023 09:00-0500 Systolic blood pressure 153 mm[Hg] Azra EDISON [facility] 01-06-2023 08:00-0500 Body temperature 97.7 [degF] Azramalorie JENSENSLIN [facility] 01-06-2023 04:00-0500 Body temperature 97.34 [degF] Azra EDISON [facility] 01-06-2023 00:00-0500 Body temperature 97.52 [degF] Azramalorie JENSENSLIN [facility] 2023 07:08-0500 Heart rate 73 /min Azramalorie JENSENSLIN [facility] 2023 05:54-0500 Blood Pressure Location Azramalorie JENSENSLIN [facility] 2023 05:54-0500 Heart rate 72 /min Azramalorie JENSENSLIN [facility] 2023 05:54-0500 Respiratory rate 12 /min Azramalorie JENSENSLIN [facility] 2023 01:56-0500 Heart rate 79 /min Azramalorie JENSENSLIN [facility] 2023 00:53-0500 Respiratory rate 16 /min Azramalorie JENSENSLIN [facility] 01-02-2023 02:44-0500 Diastolic blood pressure 71 mm[Hg] Darren Megan [facility] 01-02-2023 02:44-0500 Heart rate 86 /min Darren Megan [facility] 01-02-2023 02:44-0500 Mean blood pressure 84 mm[Hg] Darren Megan [facility] 01-02-2023 02:44-0500 Respiratory rate 18 /min Darren Megan [facility] 01-02-2023 02:44-0500 SaO2% (BldA) [Mass fraction] 97 % Darren Megan [facility] 01-02-2023 02:44-0500 Systolic blood pressure 110 mm[Hg] Darren Megan [facility] 01-02-2023 00:43-0500 Body temperature 97.88 [degF] Darren Megan [facility] 01-02-2023 00:43-0500 Diastolic blood pressure 87 mm[Hg] Darren Megan [facility] 01-02-2023 00:43-0500 Heart rate 88 /min Darren Megan [facility] 01-02-2023 00:43-0500 Respiratory rate 16 /min Darren Megan [facility] 01-02-2023 00:43-0500 SaO2% (BldA) [Mass fraction] 97 % Darren Megan [facility] 01-02-2023 00:43-0500 Systolic blood pressure 137 mm[Hg] Darren Megan [facility] 12-16-2022 20:58-0500 Diastolic blood pressure 79 mm[Hg] Amy Steele MD Work Phone: [facility] 12-16-2022 20:58-0500 Heart rate 98 /min Amy Steele MD Work Phone: [facility] 12-16-2022 20:58-0500 Respiratory rate 20 /min Amy Steele MD Work Phone: [facility] 12-16-2022 20:58-0500 SaO2% (BldA) [Mass fraction] 98 % Amy Steele MD Work Phone: [facility] 12-16-2022 20:58-0500 Systolic blood pressure 116 mm[Hg] Amy Steele MD Work Phone: [facility] 12-15-2022 05:27-0400 Body temperature 97.2 [degF] Amy Steele MD Work Phone: [facility] 12-14-2022 21:01-0400 Body height 162.6 cm Amy Steele MD Work Phone: [facility] 12-14-2022 21:01-0400 Body mass index (BMI) [Ratio] 22.31 kg/m2 Amy Steele MD Work Phone: [facility] 12-14-2022 21:01-0400 Body weight 58.97 kg Amy Steele MD Work Phone: [facility] 12-11-2022 16:02-0400 Diastolic blood pressure 68 mm[Hg] [employer]EARCH [employer] SUPER[employer]OR Amanda Robjulio Work Phone: [facility] 12-11-2022 16:02-0400 Heart rate 72 /min [employer] Amanda Robuck Work Phone: [facility] 12-11-2022 16:02-0400 Respiratory rate 18 /min [employer] Amanda Robjulio Work Phone: [facility] 12-11-2022 16:02-0400 SaO2% (BldA) [Mass fraction] 96 % [employer]PER[employer] Amanda Robuck Work Phone: [facility] 12-11-2022 16:02-0400 Systolic blood pressure 117 mm[Hg] [employer] SUPER[employer] Amanda Robuck Work Phone: [facility] 12-11-2022 13:45-0400 Inhaled oxygen flow rate 2 L/min [employer] SUPER[employer] Amanda Robuck Work Phone: [facility] 12-11-2022 11:30-0400 Body height 165.1 cm [employer]EARCH [employer] SUPER[employer]OR Amanda Barrios Work Phone: [facility] 12-11-2022 11:30-0400 Body temperature 97.1 [degF] LOGAN Barrios Work Phone: [facility] 12-11-2022 11:30-0400 Body weight 76.6 kg LOGAN Barrios Work Phone: [facility] 12-10-2022 21:52-0400 Heart rate 89 /min Eric Benavideze [facility] 12-10-2022 21:52-0400 Respiratory rate 19 /min Eric Benavideze [facility] 12-10-2022 21:52-0400 SaO2% (BldA) [Mass fraction] 95 % Eric Benavideze [facility] 12-10-2022 20:07-0400 Diastolic blood pressure 88 mm[Hg] Eric Benavideze [facility] 12-10-2022 20:07-0400 Heart rate 90 /min Eric Leidy [facility] 12-10-2022 20:07-0400 Respiratory rate 18 /min Eric Leidy [facility] 12-10-2022 20:07-0400 SaO2% (BldA) [Mass fraction] 98 % Eric Leidy [facility] 12-10-2022 20:07-0400 Systolic blood pressure 138 mm[Hg] Eric Leidy [facility] 12-10-2022 18:30-0400 Heart rate 88 /min Eric Leidy [facility] 12-10-2022 18:30-0400 Respiratory rate 18 /min Eric Benavideze [facility] 12-10-2022 18:30-0400 SaO2% (BldA) [Mass fraction] 99 % Eric Benavideze [facility] 12-10-2022 17:23-0400 Body temperature 98.42 [degF] Eric Benavideze [facility] 12-10-2022 17:23-0400 Diastolic blood pressure 101 mm[Hg] Eric Benavideze [facility] 12-10-2022 17:23-0400 Systolic blood pressure 140 mm[Hg] Eric Benavideze [facility] 12-10-2022 11:45-0400 Diastolic blood pressure 98 mm[Hg] Eric Benavideze [facility] 12-10-2022 11:45-0400 Heart rate 96 /min Eric Benavideze [facility] 12-10-2022 11:45-0400 Mean blood pressure 116 mm[Hg] Eric Benavideze [facility] 12-10-2022 11:45-0400 Respiratory rate 18 /min Eric Benavideze [facility] 12-10-2022 11:45-0400 SaO2% (BldA) [Mass fraction] 96 % Eric Benavideze [facility] 12-10-2022 11:45-0400 Systolic blood pressure 153 mm[Hg] Eric Leidy [facility] 12-10-2022 10:29-0400 SaO2% (BldA) [Mass fraction] 93 % Eric Leidy [facility] 12-10-2022 10:15-0400 Diastolic blood pressure 82 mm[Hg] Eric Leidy [facility] 12-10-2022 10:15-0400 Heart rate 75 /min Eric Leidy [facility] 12-10-2022 10:15-0400 Mean blood pressure 95 mm[Hg] Eric Forbes [facility] 12-10-2022 10:15-0400 Respiratory rate 18 /min Eric Forbes [facility] 12-10-2022 10:15-0400 SaO2% (BldA) [Mass fraction] 93 % Eric Benavideze [facility] 12-10-2022 10:15-0400 Systolic blood pressure 122 mm[Hg] Eric Benavideze [facility] 12-10-2022 09:00-0400 Diastolic blood pressure 81 mm[Hg] Eric Forbes [facility] 12-10-2022 09:00-0400 Heart rate 65 /min Eric Forbes [facility] 12-10-2022 09:00-0400 Systolic blood pressure 123 mm[Hg] Eric Forbes [facility] 12-10-2022 08:01-0400 Body temperature 97.88 [degF] Eric Forbes [facility] 12-10-2022 08:01-0400 Heart rate 91 /min Eric Forbes [facility] 12-10-2022 08:01-0400 Respiratory rate 20 /min Eric Benavideze [facility] 11-30-2022 13:30-0400 Blood Pressure Location CARRIE PEREZ [facility] 11-30-2022 13:30-0400 Body temperature 98.6 [degF] CARRIE PEREZ [facility] 11-30-2022 13:30-0400 Diastolic blood pressure 82 mm[Hg] CARRIE PEREZ [facility] 11-30-2022 13:30-0400 Heart rate 68 /min CARRIE PEREZ [facility] 11-30-2022 13:30-0400 SaO2% (BldA) [Mass fraction] 98 % CARRIE PEREZ [facility] 11-30-2022 13:30-0400 Systolic blood pressure 138 mm[Hg] CADWELL PEREZ [facility] 11-04-2022 15:46-0400 Diastolic blood pressure 95 mm[Hg] [facility] 11-04-2022 15:46-0400 Heart rate 58 /min [facility] 11-04-2022 15:46-0400 Respiratory rate 16 /min [facility] 11-04-2022 15:46-0400 SaO2% (BldA) [Mass fraction] 98 % [facility] 11-04-2022 15:46-0400 Systolic blood pressure 153 mm[Hg] [facility] 11-04-2022 14:38-0400 Diastolic blood pressure 121 mm[Hg] [facility] 11-04-2022 14:38-0400 Heart rate 67 /min [facility] 11-04-2022 14:38-0400 Respiratory rate 18 /min [facility] 11-04-2022 14:38-0400 SaO2% (BldA) [Mass fraction] 98 % [facility] 11-04-2022 14:38-0400 Systolic blood pressure 176 mm[Hg] [facility] 11-04-2022 13:22-0400 Diastolic blood pressure 120 mm[Hg] [facility] 11-04-2022 13:22-0400 Heart rate 84 /min [facility] 11-04-2022 13:22-0400 Respiratory rate 18 /min [facility] 11-04-2022 13:22-0400 SaO2% (BldA) [Mass fraction] 99 % [facility] 11-04-2022 13:22-0400 Systolic blood pressure 180 mm[Hg] [facility] 11-04-2022 12:23-0400 Body temperature 97.7 [degF] [facility] 11-04-2022 12:23-0400 Heart rate 70 /min [facility] 09-06-2022 11:52-0400 Diastolic blood pressure 103 mm[Hg] [employer] SUPER[employer]OR Amanda Robuck Work Phone: [facility] 09-06-2022 11:52-0400 Heart rate 76 /min [employer] SUPER[employer] Amanda Robuck Work Phone: [facility] 09-06-2022 11:52-0400 Respiratory rate 18 /min [employer] SUPER[employer] Amanda Robuck Work Phone: [facility] 09-06-2022 11:52-0400 SaO2% (BldA) [Mass fraction] 97 % [employer]PER[employer] Amanda Robuck Work Phone: [facility] 09-06-2022 11:52-0400 Systolic blood pressure 159 mm[Hg] [employer]EARCH [employer] SUPER[employer]OR Amanda Robuck Work Phone: [facility] 09-06-2022 10:16-0400 Body height 157.48 cm [employer]EARCH [employer] SUPER[employer]OR Amanda Robuck Work Phone: [facility] 09-06-2022 10:16-0400 Body temperature 97.1 [degF] RESEARCH [employer] SUPERVISOR Amanda Robuck Work Phone: [facility] 09-06-2022 10:16-0400 Body weight 71.4 kg [employer]EARCH [employer] SUPERVISOR Amanda Barrios Work Phone: [facility] 08-28-2022 09:49-0400 Blood Pressure Location Lorie Gudimella [facility] 08-28-2022 09:49-0400 Body temperature 98.6 [degF] Lorie Gudimella [facility] 08-28-2022 09:49-0400 Diastolic blood pressure 60 mm[Hg] Lorie Gudimella [facility] 08-28-2022 09:49-0400 Heart rate 71 /min Lorie Gudimella [facility] 08-28-2022 09:49-0400 SaO2% (BldA) [Mass fraction] 96 % Lorie Gudimella [facility] 08-28-2022 09:49-0400 Systolic blood pressure 118 mm[Hg] Lorie Gudimella [facility] 08-18-2022 10:01-0400 Hourly Rounding Azra EDISON [facility] 08-18-2022 10:01-0400 Promise to Return Azra EDISON [facility] 08-18-2022 09:52-0400 Hourly Rounding Azra EDISON [facility] 08-18-2022 09:52-0400 Promise to Return Azra EDISON [facility] 08-18-2022 08:46-0400 Hourly Rounding Azra EDISON [facility] 08-18-2022 08:46-0400 Promise to Return Azra EDISON [facility] 08-18-2022 08:00-0400 Body temperature 98.06 [degF] Azra JENSENSLIN [facility] 08-18-2022 08:00-0400 Diastolic blood pressure 72 mm[Hg] Azramalorie JENSENSLIN [facility] 08-18-2022 08:00-0400 Heart rate 65 /min Azramalorie JENSENSLIN [facility] 08-18-2022 08:00-0400 SaO2% (BldA) [Mass fraction] 96 % Azra JENSENSLIN [facility] 08-18-2022 08:00-0400 Systolic blood pressure 120 mm[Hg] Azramalorie JENSENSLIN [facility] 08-18-2022 00:00-0400 Body temperature 98.06 [degF] Azra HOGAN [facility] 08-18-2022 00:00-0400 Diastolic blood pressure 68 mm[Hg] Azra JENSENSLIN [facility] 08-18-2022 00:00-0400 Heart rate 69 /min Azramalorie JENSENSLIN [facility] 08-18-2022 00:00-0400 SaO2% (BldA) [Mass fraction] 98 % Azramalorie JENSENSLIN [facility] 08-18-2022 00:00-0400 Systolic blood pressure 110 mm[Hg] Azramalorie JENSENSLIN [facility] 08-17-2022 19:57-0400 Heart rate 74 /min Azramalorie JENSENSLIN [facility] 08-17-2022 19:57-0400 SaO2% (BldA) [Mass fraction] 97 % Azramalorie JENSENSLIN [facility] 08-17-2022 19:56-0400 Diastolic blood pressure 69 mm[Hg] Azra EDISON [facility] 08-17-2022 19:56-0400 Mean blood pressure 82 mm[Hg] Azra EDISON [facility] 08-17-2022 19:56-0400 Systolic blood pressure 109 mm[Hg] Azra EDISON [facility] 08-17-2022 19:55-0400 Body temperature 97.52 [degF] Azramalorie JENSENSLIN [facility] 08-17-2022 16:22-0400 Mean blood pressure 124 mm[Hg] Azramalorie JENSENSL[address] [facility] 08-17-2022 11:47-0400 Mean blood pressure 82 mm[Hg] Azramalorie JENSENSL[address] [facility] 08-17-2022 11:46-0400 Body temperature 97.88 [degF] Azramalorie JENSENSL[address] [facility] 08-17-2022 08:20-0400 Body temperature 96.62 [degF] Azramalorie JENSENSL[address] [facility] 08-17-2022 06:50-0400 Blood Pressure Location Azramalorie JENSENSLIN [facility] 08-17-2022 06:50-0400 Heart rate 54 /min Azramalorie JENSENSL[facility] 08-17-2022 06:24-0400 Mean blood pressure 93 mm[Hg] Azramalorie JENSENSL[address] [facility] 08-17-2022 06:24-0400 Respiratory rate 11 /min Azra EDISON [facility] 08-17-2022 05:19-0400 Mean blood pressure 92 mm[Hg] Azra EDISON [facility] 08-17-2022 05:19-0400 Respiratory rate 31 /min Azra EDISON [facility] 08-17-2022 03:00-0400 Mean blood pressure 85 mm[Hg] Azra EDISON [facility] 08-17-2022 03:00-0400 Respiratory rate 32 /min Azra EDISON [facility] 08-17-2022 01:39-0400 Blood Pressure Location Azramalorie JESNENSLIN [facility] 08-17-2022 01:39-0400 Heart rate 64 /min Azra EDISON [facility] 08-17-2022 01:39-0400 Respiratory rate 15 /min Azra EDISON [facility] 08-17-2022 01:24-0400 Body temperature 97.16 [degF] Azra EDISON [facility] 08-17-2022 01:24-0400 Heart rate 62 /min Azra EDISON [facility] 08-16-2022 23:47-0400 Body temperature 96.62 [degF] Azra EDISON [facility] 08-16-2022 23:47-0400 Respiratory rate 23 /min Azra EDISON [facility] 08-13-2022 13:26-0400 Diastolic blood pressure 88 mm[Hg] Aamnda BARRIOS [facility] 08-13-2022 13:26-0400 Mean blood pressure 101 mm[Hg] Amanda ROBUCK [facility] 08-13-2022 13:26-0400 Systolic blood pressure 128 mm[Hg] Amanda ROBUCK [facility] 08-13-2022 12:58-0400 Blood Pressure Location Amanda ROBUCK [facility] 08-13-2022 12:58-0400 Diastolic blood pressure 107 mm[Hg] Amanda ROBUCK [facility] 08-13-2022 12:58-0400 Heart rate 84 /min Amanda ROBUCK [facility] 08-13-2022 12:58-0400 SaO2% (BldA) [Mass fraction] 99 % Amanda ROBUCK [facility] 08-13-2022 12:58-0400 Systolic blood pressure 167 mm[Hg] Amanda ROBUCK [facility] 06-10-2022 07:30-0400 Body temperature 97.5 [degF] RESEARCH [employer] SUPERVISOR Amanda Robuck Work Phone: [facility] 06-10-2022 07:30-0400 Diastolic blood pressure 92 mm[Hg] RESEARCH [employer] SUPERVISOR Amanda Robuck Work Phone: [facility] 06-10-2022 07:30-0400 Heart rate 78 /min [employer]EARCH [employer] SUPER[employer] Amanda Robuck Work Phone: [facility] 06-10-2022 07:30-0400 Respiratory rate 18 /min [employer]EARCH [employer] SUPERVISOR Amanda Robuck Work Phone: [facility] 06-10-2022 07:30-0400 SaO2% (BldA) [Mass fraction] 97 % [employer]EARCH [employer] SUPER[employer] Amanda Robuck Work Phone: [facility] 06-10-2022 07:30-0400 Systolic blood pressure 132 mm[Hg] RESEARCH [employer]EL SUPERVISOR Amanda Robuck Work Phone: [facility] 06-08-2022 14:09-0400 Body height 157.48 cm RESEARCH [employer] SUPERVISOR Amanda Robuck Work Phone: [phone] [place] [address] 06-07-2022 17:31-0400 Body weight 72.57 kg RESEARCH [employer] SUPERVISOR Amanda Robuck Work Phone: [phone] [place] [address] 06-07-2022 15:22-0400 Diastolic blood pressure 91 mm[Hg] RESEARCH [employer]EL SUPERVISOR Amanda Robuck Work Phone: [facility] 06-07-2022 15:22-0400 Heart rate 90 /min [employer]EARCH [employer] SUPERVISOR Amanda Robuck Work Phone: [facility] 06-07-2022 15:22-0400 Respiratory rate 24 /min [employer]EARCH [employer] SUPERVISOR Amanda Robuck Work Phone: [facility] 06-07-2022 15:22-0400 SaO2% (BldA) [Mass fraction] 97 % [employer]EARCH [employer] SUPERVISOR Amanda Robuck Work Phone: [facility] 06-07-2022 15:22-0400 Systolic blood pressure 151 mm[Hg] RESEARCH K[employer]EL SUPERVISOR Amanda Robuck Work Phone: [facility] 06-07-2022 08:57-0400 Body height 157.48 cm RESEARCH [employer] SUPERVISOR Amanda Robuck Work Phone: [facility] 06-07-2022 08:57-0400 Body temperature 98.3 [degF] RESEARCH K[employer]EL SUPERVISOR Amanda Robuck Work Phone: [facility] 06-07-2022 08:57-0400 Body weight 73.02 kg RESEARCH [employer] SUPERVISOR Amanda Robuck Work Phone: [facility] 04-24-2022 14:45-0400 Body height 160.02 cm Imad Asaad Other [employer] Other 04-24-2022 14:45-0400 Body mass index (BMI) [Ratio] 29.23 kg/m2 Imad Asaad Other [employer] Other 04-24-2022 14:45-0400 Body weight 74.84 kg Imad Asaad Other [employer] Other 04-24-2022 14:45-0400 Diastolic blood pressure 56 mm[Hg] Imad Asaad Other [employer] Other 04-24-2022 14:45-0400 Systolic blood pressure 109 mm[Hg] Imad Asaad Other [employer] Other 04-11-2022 11:11-0500 Diastolic blood pressure 70 mm[Hg] RESEARCH [employer]EL SUPERVISOR Amanda Robuck Work Phone: [facility] 04-11-2022 11:11-0500 Heart rate 72 /min [employer]EARCH [employer] SUPER[employer]OR Amanda Robuck Work Phone: [facility] 04-11-2022 11:11-0500 Respiratory rate 16 /min [employer]EARCH [employer] SUPERVISOR Amanda Robuck Work Phone: [facility] 04-11-2022 11:11-0500 SaO2% (BldA) [Mass fraction] 98 % [employer]EARCH [employer] SUPERVISOR Amanda Robuck Work Phone: [facility] 04-11-2022 11:11-0500 Systolic blood pressure 148 mm[Hg] RESEARCH K[employer]EL SUPERVISOR Amanda Robuck Work Phone: [facility] 04-11-2022 08:29-0500 Body height 157.48 cm RESEARCH K[employer]EL SUPERVISOR Amanda Robuck Work Phone: [facility] 04-11-2022 08:29-0500 Body temperature 97.5 [degF] RESEARCH KENNEL SUPERVISOR Amanda Robuck Work Phone: [facility] 04-11-2022 08:29-0500 Body weight 74.84 kg [employer]EARCH K[employer] SUPERVISOR Amanda Robuck Work Phone: [facility] 04-04-2022 09:31-0500 Diastolic blood pressure 59 mm[Hg] RESEARCH KENNEL SUPERVISOR Amanda Robuck Work Phone: [facility] 04-04-2022 09:31-0500 Heart rate 85 /min RESEARCH KENNEL SUPERVISOR Amanda Robuck Work Phone: [facility] 04-04-2022 09:31-0500 Respiratory rate 20 /min RESEARCH KENNEL SUPERVISOR Amanda Robuck Work Phone: [facility] 04-04-2022 09:31-0500 SaO2% (BldA) [Mass fraction] 93 % RESEARCH KENNEL SUPERVISOR Amanda Robuck Work Phone: [facility] 04-04-2022 09:31-0500 Systolic blood pressure 110 mm[Hg] RESEARCH KENNEL SUPERVISOR Amanda Robuck Work Phone: [facility] 04-03-2022 21:50-0500 Body height 170.18 cm RESEARCH KENNEL SUPERVISOR Amanda Robuck Work Phone: [facility] 04-03-2022 21:50-0500 Body weight 81.6 kg RESEARCH KENNEL SUPERVISOR Amanda Robuck Work Phone: [facility] 04-03-2022 21:50-0500 Inhaled oxygen flow rate 15 L/min RESEARCH KENNEL SUPERVISOR Amanda Robuck Work Phone: [facility] 04-03-2022 08:06-0500 Body height 157.48 cm RESEARCH KENNEL SUPERVISOR Amanda Robuck Work Phone: [facility] 04-03-2022 08:06-0500 Body temperature 96.9 [degF] RESEARCH KENNEL SUPERVISOR Amanda Robuck Work Phone: [facility] 04-03-2022 08:06-0500 Body weight 74.84 kg RESEARCH KENNEL SUPERVISOR Amanda Robuck Work Phone: [facility] 04-03-2022 08:06-0500 Diastolic blood pressure 86 mm[Hg] RESEARCH KENNEL SUPERVISOR Amanda Robuck Work Phone: [facility] 04-03-2022 08:06-0500 Heart rate 74 /min RESEARCH KENNEL SUPERVISOR Amanda Robuck Work Phone: [facility] 04-03-2022 08:06-0500 Respiratory rate 18 /min RESEARCH KENNEL SUPERVISOR Amanda Robuck Work Phone: [facility] 04-03-2022 08:06-0500 SaO2% (BldA) [Mass fraction] 98 % RESEARCH KENNEL SUPERVISOR Amanda Robuck Work Phone: [facility] 04-03-2022 08:06-0500 Systolic blood pressure 124 mm[Hg] RESEARCH KENNEL SUPERVISOR Amanda Robuck Work Phone: [facility] 04-01-2022 18:19-0500 Body height 157.48 cm RESEARCH KENNEL SUPERVISOR Amanda Robuck Work Phone: [facility] 04-01-2022 18:19-0500 Body temperature 99.4 [degF] RESEARCH KENNEL SUPERVISOR Amanda Robuck Work Phone: [facility] 04-01-2022 18:19-0500 Body weight 74.84 kg RESEARCH KENNEL SUPERVISOR Amanda Robuck Work Phone: [facility] 04-01-2022 18:19-0500 Diastolic blood pressure 99 mm[Hg] RESEARCH KENNEL SUPERVISOR Amanda Robuck Work Phone: [facility] 04-01-2022 18:19-0500 Heart rate 111 /min RESEARCH KENNEL SUPERVISOR Amanda Robuck Work Phone: [facility] 04-01-2022 18:19-0500 Respiratory rate 18 /min RESEARCH KENNEL SUPERVISOR Maanda Robuck Work Phone: [facility] 04-01-2022 18:19-0500 SaO2% (BldA) [Mass fraction] 100 % RESEARCH KENNEL SUPERVISOR Amanda Robuck Work Phone: [facility] 04-01-2022 18:19-0500 Systolic blood pressure 143 mm[Hg] RESEARCH KENNEL SUPERVISOR Amanda Robuck Work Phone: [facility] 03-19-2022 06:50-0500 Diastolic blood pressure 78 mm[Hg] RESEARCH KENNEL SUPERVISOR Amanda Robuck Work Phone: [facility] 03-19-2022 06:50-0500 Heart rate 82 /min RESEARCH KENNEL SUPERVISOR Amanda Robuck Work Phone: [facility] 03-19-2022 06:50-0500 Respiratory rate 18 /min RESEARCH KENNEL SUPERVISOR Amanda Robuck Work Phone: [facility] 03-19-2022 06:50-0500 SaO2% (BldA) [Mass fraction] 99 % RESEARCH KENNEL SUPERVISOR Amanda Robuck Work Phone: [facility] 03-19-2022 06:50-0500 Systolic blood pressure 124 mm[Hg] RESEARCH KENNEL SUPERVISOR Amanda Robuck Work Phone: [facility] 03-19-2022 05:27-0500 Body height 157.48 cm RESEARCH KENNEL SUPERVISOR Amanda Robuck Work Phone: [facility] 03-19-2022 05:27-0500 Body temperature 97 [degF] RESEARCH KENNEL SUPERVISOR Amanda Robuck Work Phone: [facility] 03-19-2022 05:27-0500 Body weight 74.84 kg RESEARCH KENNEL SUPERVISOR Amanda Robuck Work Phone: [facility] 03-13-2022 12:59-0500 Body temperature 98.8 [degF] Declan Goel MD Work Phone: [facility] 03-13-2022 12:58-0500 Diastolic blood pressure 92 mm[Hg] Declan Goel MD Work Phone: [facility] [employer] 03-13-2022 12:58-0500 Systolic blood pressure 131 mm[Hg] Declan Goel MD Work Phone: [facility] [employer] 03-13-2022 12:57-0500 Heart rate 114 /min Declan Goel MD Work Phone: [facility] 03-13-2022 12:57-0500 Respiratory rate 28 /min Declan Goel MD Work Phone: [facility] [employer] 03-13-2022 12:57-0500 SaO2% (BldA) [Mass fraction] 92 % Declan Goel MD Work Phone: [facility] 03-13-2022 03:48-0500 Diastolic blood pressure 76 mm[Hg] Phu Barker DO Work Phone: [facility] 03-13-2022 03:48-0500 Heart rate 105 /min Phu Barker DO Work Phone: [facility] 03-13-2022 03:48-0500 Respiratory rate 16 /min Phu Barker DO Work Phone: [facility] 03-13-2022 03:48-0500 SaO2% (BldA) [Mass fraction] 95 % Phu Barker DO Work Phone: [facility] 03-13-2022 03:48-0500 Systolic blood pressure 133 mm[Hg] Phu Barker DO Work Phone: [facility] 03-12-2022 23:32-0500 Body temperature 98.4 [degF] Phu Barker DO Work Phone: [facility] [employer] 03-12-2022 14:08-0500 Body height 154.9 cm Phu Barker DO Work Phone: [employer] 03-12-2022 14:08-0500 Body mass index (BMI) [Ratio] 30.23 kg/m2 Phu Barker DO Work Phone: [employer] 03-12-2022 14:08-0500 Body weight 72.58 kg Phu Barker DO Work Phone: [employer] 03-09-2022 07:03-0500 Body height 157.48 cm RESEARCH KENNEL SUPERVISOR Amanda Robuck Work Phone: [facility] 03-09-2022 07:03-0500 Body temperature 97.1 [degF] RESEARCH KENNEL SUPERVISOR Amanda Robuck Work Phone: [facility] 03-09-2022 07:03-0500 Body weight 78.6 kg RESEARCH KENNEL SUPERVISOR Amanda Robuck Work Phone: [facility] 03-09-2022 07:03-0500 Diastolic blood pressure 82 mm[Hg] RESEARCH KENNEL SUPERVISOR Amanda Robuck Work Phone: [facility] 03-09-2022 07:03-0500 Heart rate 73 /min RESEARCH KENNEL SUPERVISOR Amanda Robuck Work Phone: [facility] 03-09-2022 07:03-0500 Respiratory rate 18 /min RESEARCH KENNEL SUPERVISOR Amanda Robuck Work Phone: [facility] 03-09-2022 07:03-0500 SaO2% (BldA) [Mass fraction] 98 % RESEARCH KENNEL SUPERVISOR Amanda Robuck Work Phone: [facility] 03-09-2022 07:03-0500 Systolic blood pressure 134 mm[Hg] RESEARCH KENNEL SUPERVISOR Amanda Robuck Work Phone: [facility] 03-05-2022 20:34-0500 Diastolic blood pressure 79 mm[Hg] RESEARCH KENNEL SUPERVISOR Amanda Robuck Work Phone: [facility] 03-05-2022 20:34-0500 Heart rate 82 /min RESEARCH KENNEL SUPERVISOR Amanda Robuck Work Phone: [facility] 03-05-2022 20:34-0500 Respiratory rate 23 /min RESEARCH KENNEL SUPERVISOR Amanda Robuck Work Phone: [facility] 03-05-2022 20:34-0500 SaO2% (BldA) [Mass fraction] 100 % RESEARCH KENNEL SUPERVISOR Amanda Robuck Work Phone: [facility] 03-05-2022 20:34-0500 Systolic blood pressure 126 mm[Hg] RESEARCH KENNEL SUPERVISOR Amanda Robuck Work Phone: [facility] 03-05-2022 13:40-0500 Body height 157.48 cm RESEARCH KENNEL SUPERVISOR Amanda Robuck Work Phone: [facility] 03-05-2022 13:40-0500 Body temperature 97.8 [degF] RESEARCH KENNEL SUPERVISOR Amanda Robuck Work Phone: [facility] 03-05-2022 13:40-0500 Body weight 77.11 kg RESEARCH KENNEL SUPERVISOR Amanda Robuck Work Phone: [facility] 02-21-2022 07:20-0500 Diastolic blood pressure 70 mm[Hg] RESEARCH KENNEL SUPERVISOR Amanda Robuck Work Phone: [facility] 02-21-2022 07:20-0500 Heart rate 89 /min RESEARCH KENNEL SUPERVISOR Amanda Robuck Work Phone: [facility] 02-21-2022 07:20-0500 Respiratory rate 16 /min RESEARCH KENNEL SUPERVISOR Amanda Robuck Work Phone: [facility] 02-21-2022 07:20-0500 SaO2% (BldA) [Mass fraction] 93 % RESEARCH KENNEL SUPERVISOR Amanda Robuck Work Phone: [facility] 02-21-2022 07:20-0500 Systolic blood pressure 127 mm[Hg] RESEARCH KENNEL SUPERVISOR Amanda Robuck Work Phone: [facility] 02-20-2022 19:43-0500 Body temperature 97.1 [degF] RESEARCH KENNEL SUPERVISOR Amanda Robuck Work Phone: [facility] 02-20-2022 18:51-0500 Body height 157.48 cm RESEARCH KENNEL SUPERVISOR Amanda Robuck Work Phone: [facility] 02-20-2022 18:51-0500 Body weight 78.9 kg RESEARCH KENNEL SUPERVISOR Amanda Robuck Work Phone: [phone] [place] [address] 02-19-2022 11:20-0500 Body height 157.48 cm RESEARCH KENNEL SUPERVISOR Amanda Robuck Work Phone: [phone] [place] [address] 02-19-2022 11:20-0500 Body temperature 98 [degF] RESEARCH KENNEL SUPERVISOR Amanda Robuck Work Phone: [facility] 02-19-2022 11:20-0500 Body weight 79.15 kg RESEARCH KENNEL SUPERVISOR Amanda Robuck Work Phone: [facility] 02-19-2022 11:20-0500 Diastolic blood pressure 95 mm[Hg] RESEARCH KENNEL SUPERVISOR Amanda Robuck Work Phone: [facility] 02-19-2022 11:20-0500 Heart rate 94 /min RESEARCH KENNEL SUPERVISOR Amanda Robuck Work Phone: [facility] 02-19-2022 11:20-0500 Respiratory rate 18 /min RESEARCH KENNEL SUPERVISOR Amanda Robuck Work Phone: [facility] 02-19-2022 11:20-0500 SaO2% (BldA) [Mass fraction] 95 % RESEARCH KENNEL SUPERVISOR Amanda Robuck Work Phone: [facility] 02-19-2022 11:20-0500 Systolic blood pressure 149 mm[Hg] RESEARCH KENNEL SUPERVISOR Amanda Robuck Work Phone: [facility] 10-06-2021 16:23-0400 Diastolic blood pressure 81 mm[Hg] Varun ZURITA [facility] 10-06-2021 16:23-0400 Heart rate 53 /min Varun ZURITA [facility] 10-06-2021 16:23-0400 Mean blood pressure 99 mm[Hg] Varun ZURITA [facility] 10-06-2021 16:23-0400 SaO2% (BldA) [Mass fraction] 96 % Varun ZURITA [facility] 10-06-2021 16:23-0400 Systolic blood pressure 135 mm[Hg] Varun ZURITA [facility] 09-19-2021 10:16-0400 Blood Pressure Location Amanda BARRIOS [facility] 09-19-2021 10:16-0400 Diastolic blood pressure 78 mm[Hg] Amanda ROBUCK [facility] 09-19-2021 10:16-0400 Heart rate 86 /min Amanda ROBUCK [facility] 09-19-2021 10:16-0400 Systolic blood pressure 114 mm[Hg] Amanda ROBUCK [facility] 07-26-2021 21:00-0400 Diastolic blood pressure 98 mm[Hg] Isai Rafael [facility] 07-26-2021 21:00-0400 Heart rate 86 /min Isai Rafael [facility] 07-26-2021 21:00-0400 Mean blood pressure 106 mm[Hg] Isai Rafael [facility] 07-26-2021 21:00-0400 Respiratory rate 18 /min Isai Rafael [facility] 07-26-2021 21:00-0400 SaO2% (BldA) [Mass fraction] 100 % Isai Rafael [facility] 07-26-2021 21:00-0400 Systolic blood pressure 123 mm[Hg] Isai Rafael [facility] 07-26-2021 20:00-0400 Hourly Rounding Isai Rafael [facility] 07-26-2021 20:00-0400 Nursing Progress Note Reason Other: TO ct Isai Hall [facility] 07-26-2021 20:00-0400 Promise to Return Isai Rafael [facility] 07-26-2021 19:00-0400 Hourly Rounding Isai Hall [facility] 07-26-2021 19:00-0400 Promise to Return Isai Rafael [facility] 07-26-2021 18:11-0400 Body temperature 98.24 [degF] Isai Rafael [facility] 07-26-2021 18:11-0400 Diastolic blood pressure 103 mm[Hg] Isai Rafael [facility] 07-26-2021 18:11-0400 Heart rate 103 /min Isai Rafael [facility] 07-26-2021 18:11-0400 Respiratory rate 16 /min Isai Rafael [facility] 07-26-2021 18:11-0400 SaO2% (BldA) [Mass fraction] 97 % Isai Rafael [facility] 07-26-2021 18:11-0400 Systolic blood pressure 118 mm[Hg] Isai Hall [facility] 07-04-2021 15:06-0400 Diastolic blood pressure 77 mm[Hg] Amanda ROBUCK [facility] 07-04-2021 15:06-0400 Heart rate 86 /min Amanda ROBUCK [facility] 07-04-2021 15:06-0400 Systolic blood pressure 122 mm[Hg] Amanad ROBUCK [facility] 05-03-2021 10:00-0400 Diastolic blood pressure 86 mm[Hg] Zaire Osuna MD Work Phone: [facility] [employer] 05-03-2021 10:00-0400 Systolic blood pressure 131 mm[Hg] Zaire Osuna MD Work Phone: [facility] [employer] 05-03-2021 09:31-0400 Body height 157.5 cm Zaire Osuna MD Work Phone: [facility] 05-03-2021 09:31-0400 Body mass index (BMI) [Ratio] 31.09 kg/m2 Zaire Osuna MD Work Phone: [facility] [employer] 05-03-2021 09:31-0400 Body temperature 98.2 [degF] Zaire Osuna MD Work Phone: [facility] 05-03-2021 09:31-0400 Body weight 77.11 kg Zaire sOuna MD Work Phone: [facility] 05-03-2021 09:31-0400 Heart rate 103 /min Zaire Osuna MD Work Phone: [facility] 05-03-2021 09:31-0400 Respiratory rate 16 /min Zaire Osuna MD Work Phone: [facility] 05-03-2021 09:31-0400 SaO2% (BldA) [Mass fraction] 96 % Zaire Osuna MD Work Phone: [facility] 05-03-2021 03:17-0400 Diastolic blood pressure 76 mm[Hg] Declan Bradshaw MD Work Phone: [facility] 05-03-2021 03:17-0400 Heart rate 86 /min Declan Bradshaw MD Work Phone: [facility] 05-03-2021 03:17-0400 SaO2% (BldA) [Mass fraction] 98 % Declan Bradshaw MD Work Phone: [facility] 05-03-2021 03:17-0400 Systolic blood pressure 107 mm[Hg] Declan Bradshaw MD Work Phone: [facility] 05-02-2021 23:07-0400 Body temperature 98.71 [degF] Declan Bradshaw MD Work Phone: [facility] [employer] 05-02-2021 23:04-0400 Body mass index (BMI) [Ratio] 31.09 kg/m2 Declan Bradshaw MD Work Phone: [facility] [employer] 05-02-2021 23:04-0400 Body weight 77.11 kg Declan Bradshaw MD Work Phone: [employer] 05-02-2021 23:04-0400 Respiratory rate 20 /min Declan Bradshaw MD [facility]: [facility] 09-22-2020 19:10-0400 Body height 157.4 cm Elvis Campbell Other Phone: [facility] 09-22-2020 19:10-0400 Body temperature 96.08 [degF] Elvis Campbell Other Phone: [facility] 09-22-2020 19:10-0400 Diastolic blood pressure 99 mm[Hg] Elvis Benitaazarian Other Phone: [facility] 09-22-2020 19:10-0400 Heart rate 90 /min Elvis Joyazarian Other Phone: [facility] 09-22-2020 19:10-0400 Respiratory rate 20 /min Elvis Joyazarian Other Phone: [facility] 09-22-2020 19:10-0400 SaO2% (BldA) [Mass fraction] 97 % Elvis Benitaazarian Other Phone: [facility] 09-22-2020 19:10-0400 Systolic blood pressure 131 mm[Hg] Elvis Benitaazrekha Other Phone: [facility] 03-11-2020 22:20-0500 Pulse (Heart Rate) 95 /min [facility] 03-11-2020 22:20-0500 Pulse Oximetry 98 % [facility] [place] 03-11-2020 22:14-0500 BMI (Body Mass Index) 32.74 kg/m2 [facility] 03-11-2020 22:14-0500 Body weight 81.19 kg [facility] [place] 03-11-2020 22:14-0500 Height 157.5 cm [facility] [place] 03-11-2020 22:08-0500 Body Temperature 99.3 [degF] [facility] 03-11-2020 22:08-0500 BP Diastolic 81 mm[Hg] [facility] [place] 03-11-2020 22:08-0500 BP Systolic 121 mm[Hg] [facility] [place] 03-11-2020 22:08-0500 Respiratory Rate 18 /min [facility] 03-10-2020 15:50-0500 BMI (Body Mass Index) 32.74 kg/m2 [facility] [place] 03-10-2020 15:50-0500 Body Temperature 98.01 [degF] [facility] 03-10-2020 15:50-0500 Body weight 81.19 kg [facility] 03-10-2020 15:50-0500 BP Diastolic 79 mm[Hg] [facility] 03-10-2020 15:50-0500 BP Systolic 119 mm[Hg] [facility] 03-10-2020 15:50-0500 Height 157.5 cm [facility] 03-10-2020 15:50-0500 Pulse (Heart Rate) 78 /min [facility] 03-10-2020 15:50-0500 Pulse Oximetry 97 % [facility], [place] 03-10-2020 15:50-0500 Respiratory Rate 20 /min [facility] 02-24-2019 12:47-0500 BMI (Body Mass Index) 310.02 kg/m2 Nini Wolf [facility] Work Phone: 02-24-2019 12:47-0500 Body weight 768.85 kg Nini Wolf [facility] rnal Medicine Work Phone: 02-24-2019 12:47-0500 BP Diastolic 80 mm[Hg] Nini Wolf [facility] Work Phone: Comment on above: Location: LUE; Position: Sitting 02-24-2019 12:47-0500 BP Systolic 134 mm[Hg] Nini Wolf [facility] Medicine Work Phone: Comment on above: Location: LUE; Position: Sitting 02-24-2019 12:47-0500 BSA (Body Surface Area) 4.74 m2 Nini Wolf [facility] Work Phone: 02-24-2019 12:47-0500 Height 157.48 cm Nini Wolf [facility] Work Phone: 02-24-2019 12:47-0500 Pulse (Heart Rate) 80 /min Nini Wolf [facility] nternal Medicine Work Phone: 02-17-2019 12:24-0500 BMI (Body Mass Index) 30 kg/m2 Nini Wolf [facility] Work Phone: 02-17-2019 12:24-0500 Body weight 74.39 kg Nini Wolf [facility] Work Phone: 02-17-2019 12:24-0500 BP Diastolic 84 mm[Hg] Nini Wolf [facility] Work Phone: 02-17-2019 12:24-0500 BP Systolic 130 mm[Hg] Nini Wolf [facility] rnal Medicine Work Phone: 02-17-2019 12:24-0500 BSA (Body Surface Area) 1.76 m2 Nini Wolf [facility] Work Phone: 02-17-2019 12:24-0500 Height 157.48 cm Nini Wolf [facility] rnal Medicine Work Phone: 02-17-2019 12:24-0500 Pulse (Heart Rate) 76 /min Nini Wolf [facility] nternal Medicine Work Phone: 12-20-2018 21:49-0500 BP Diastolic 68 mm[Hg] [facility] [place] 12-20-2018 21:49-0500 BP Systolic 116 mm[Hg] [facility] [place] 12-20-2018 21:49-0500 Pulse Oximetry 98 % [facility] [place] 12-20-2018 21:04-0500 BMI (Body Mass Index) 29.48 kg/m2 [facility] 12-20-2018 21:04-0500 Body Temperature 97.5 [degF] Luis Mo [facility], [place] 12-20-2018 21:04-0500 Body weight 70.76 kg [facility] [place] 12-20-2018 21:04-0500 Height 154.9 cm [facility] , [place] 12-20-2018 21:04-0500 Pulse (Heart Rate) 93 /min Luis Boggs [facility], [place] 12-20-2018 21:04-0500 Respiratory Rate 20 /min Luis Boggs [facility], [place] 11-01-2018 17:40-0400 BP Diastolic 93 mm[Hg] [facility] [place] 11-01-2018 17:40-0400 BP Systolic 143 mm[Hg] Mundo [facility], [place] 11-01-2018 17:37-0400 BMI (Body Mass Index) 28.89 kg/m2 Mundo [facility], [place] 11-01-2018 17:37-0400 Body Temperature 97.9 [degF] [place] 11-01-2018 17:37-0400 Body weight 69.36 kg Mundo [facility], [place] 11-01-2018 17:37-0400 Height 154.9 cm Mundo [facility], [place] 11-01-2018 17:37-0400 Pulse (Heart Rate) 84 /min Mundo [place], [place] 11-01-2018 17:37-0400 Pulse Oximetry 99 % Mundo [place], [place] 11-01-2018 17:37-0400 Respiratory Rate 18 /min [place], [place] Encounters Encounter Date Encounter Type Care Provider Facility Start: 08-29-2023 End: 08-29-2023 Patient encounter procedure Birgit Aiken [facility] Start: 08-21-2023 ambulatory Amanda BARRIOS Facility :[facility] Start: 08-12-2023 ambulatory [facility] Amanda BARRIOS [facility] lity:CD:[id number] Start: 08-07-2023 Non-patient / Non-visit Diamante Cleveland Work Phone: [facility] Work Phone: Start: 08-06-2023 End: 08-10-2023 Evaluation and management of inpatient Diamante Cristofer Work Phone: [facility] [place] [address] Work Phone: Start: 08-06-2023 End: 08-06-2023 Emergency department patient visit Eric Forbes [facility] Start: 08-06-2023 ambulatory Gautam Burrows Facility:[facility] Start: 07-14-2023 End: 07-14-2023 Lab Drop off Mike Spear [facility] Start: 07-14-2023 End: 07-14-2023 ambulatory Mike Spear Facility:[facility] Start: 07-14-2023 End: 07-14-2023 Patient encounter procedure Mike Spear [facility] Start: 07-05-2023 Emergency department patient visit Isai Hall Facility:[facility] Start: 07-05-2023 Registered Recurring Diamante bergeron Work Phone: [facility] Start: 07-05-2023 End: 07-05-2023 Emergency department patient visit Isai Hall [facility] Start: 07-03-2023 End: 07-03-2023 Emergency department patient visit Kaushik Sparks Facility:[facility] Start: 07-03-2023 End: 07-03-2023 Emergency department patient visit Kaushik Sparks [facility] Start: 06-30-2023 End: 07-01-2023 Emergency department patient visit Isai Hall Facility:[facility] Start: 06-30-2023 End: 06-30-2023 Emergency department patient visit Isai Hall [facility] Start: 06-20-2023 ambulatory Amanda E ROBUCK Facility :[facility] Start: 06-17-2023 End: 06-18-2023 ambulatory Mike Spear Facility:[facility] Start: 06-17-2023 End: 06-17-2023 Lab Drop off Mike Spear [facility] Start: 06-17-2023 End: 06-17-2023 Patient encounter procedure Mike Spear [facility] Start: 06-17-2023 ambulatory Mike Spear Facili ty:[facility] Start: 06-10-2023 ambulatory Amanda E ROBJULIO Facility :[facility] Start: 06-04-2023 ambulatory Amanda E ROBUCK Facility :[facility] Start: 06-03-2023 End: 06-04-2023 Emergency department patient visit Kerry Linton Facility:[facility] Start: 06-03-2023 End: 06-03-2023 Emergency department patient visit Kerry Linton [facility] Start: 05-01-2023 ambulatory Amanda E ANTWONUCK Facility :[facility] Start: 04-25-2023 End: 04-25-2023 Emergency department patient visit RESEARCH KENNEL SUPERVISOR Amanda Barrios Work Phone: [facility] Work Phone: Start: 04-19-2023 End: 04-20-2023 Emergency department patient visit Brettnorma Lurdes Aguilarchanelroseanne Facility:[facility] Start: 04-19-2023 End: 04-20-2023 Emergency department patient visit Keelythomas Lurdes Aguilarchanelroseanne [facility] Start: 04-08-2023 End: 04-08-2023 Emergency department patient visit RESEARCH KENNEL SUPERVISOR Amanda Barrios Work Phone: [facility] Work Phone: Start: 04-06-2023 End: 04-06-2023 Emergency department patient visit Diamante Cleveland Work Phone: [facility] Work Phone: Start: 03-20-2023 ambulatory Amanda E ROBUCK Facility :[facility] Start: 03-17-2023 End: 03-17-2023 Emergency department patient visit Diamante Cleveland Work Phone: [facility] Work Phone: Start: 03-12-2023 End: 03-12-2023 Emergency department patient visit Diamante Cleveland Work Phone: [facility] Work Phone: Start: 03-04-2023 End: 03-04-2023 Emergency department patient visit DO Ari More Work Phone: [facility] Work Phone: Start: 03-04-2023 ambulatory Amanda E ROBUCK Facility :[facility] Start: 01-28-2023 ambulatory Amanda E ROBUCK Facility :[facility] Start: 01-25-2023 End: 01-25-2023 Emergency department patient visit DO Ari More Work Phone: [facility] Work Phone: Start: 01-19-2023 End: 01-19-2023 Emergency department patient visit DO Ari More Work Phone: [facility] Work Phone: Start: 01-17-2023 End: 01-18-2023 ambulatory Amanda E ROBUCK Facility:[facility] Start: 01-17-2023 End: 01-17-2023 Patient encounter procedure Amanda BARRIOS [facility] Start: 01-08-2023 End: 01-08-2023 Emergency department patient visit LOGAN Barrios Work Phone: [facility] Work Phone: Start: 01-07-2023 End: 01-07-2023 Emergency department patient visit Darren Guzman Facility:[facility] Start: 2023 Registered Recurring Diamante bergeron Work Phone: [facility] Start: 2023 End: 01-06-2023 Evaluation and management of inpatient Francisco Cruz Facility:[facility] Start: 2023 End: 01-06-2023 Evaluation and management of inpatient Azra HOGAN [facility] Start: 01-02-2023 End: 01-02-2023 Emergency department patient visit Darren Guzman Facility:[facility] Start: 01-02-2023 End: 01-02-2023 Emergency department patient visit Darren Guzman [facility] Start: 12-14-2022 End: 12-17-2022 Emergency department patient visit NINI MCCOLLUM [facility] Start: 12-14-2022 End: 12-16-2022 Emergency department patient visit Amy Steele MD Work Phone: [facility] Comment on above: Alcohol withdrawal s yndrome with complication (CMS/HCC) (Primary Dx); Bipolar affective disorder, currently manic, moderate (CMS/HCC) Start: 12-11-2022 End: 12-11-2022 Emergency department patient visit LOGAN Barrios Work Phone: [facility] Work Phone: Start: 12-10-2022 End: 12-10-2022 Emergency department patient visit Eric Forbes Facility:[facility] Start: 12-10-2022 End: 12-10-2022 Emergency department patient visit Eric Forbes [facility] Start: 12-10-2022 End: 12-10-2022 Emergency department patient visit Eric Forbes Facility:[facility] Start: 12-10-2022 End: 12-10-2022 Emergency department patient visit Eric Forbes [facility] Start: 11-30-2022 End: 12-01-[address] [facility] Facility:[facility] Start: 11-30-2022 End: 12-01-[address] [facility] Facility: [facility] Start: 11-30-2022 End: 11-30-[address] [facility] Start: 11-30-2022 End: 11-30-[address] [facility] Start: 11-14-2022 End: 11-15-2022 ambulatory JADA COLBY Facility:[facility] Start: 11-14-2022 End: 11-14-2022 Lab Drop off JADA COLBY [facility] Start: 11-13-2022 End: 11-14-2022 ambulatory Birgit COOPER Facility:[facility] Start: 11-13-2022 End: 11-13-2022 Patient encounter procedure Birgit COOPER [facility] Start: 11-11-2022 End: 11-11-2022 Emergency department patient visit Isai Hall Facility:[facility] Start: 11-04-2022 End: 11-04-2022 Emergency department patient visit Gladys Saini Facility:[facility] Start: 11-04-2022 End: 11-04-2022 Emergency department patient visit Gladys Saini [facility] Start: 10-17-2022 ambulatory Amanda BARRIOS Facility :[facility] Start: 10-11-2022 End: 10-11-2022 Patient encounter procedure RESEARCH KENNEL SUPERVISORThomas Barrios Work Phone: [facility] Work Phone: Start: 10-11-2022 End: 10-11-2022 ambulatory LOGAN Barrios Work Phone: [facility] Work Phone: Start: 10-05-2022 End: 10-06-2022 ambulatory [facility] Facility:[facility] Start: 09-06-2022 End: 09-06-2022 Emergency department patient visit LOGAN Barrios Work Phone: [facility] Work Phone: Start: 08-28-2022 End: 08-29-2022 ambulatory Lorie Gudimella Facility:[facility] Start: 08-28-2022 End: 08-29-2022 ambulatory Lorie Gudimella Facility: [facility] Start: 08-28-2022 End: 08-28-2022 Lab Drop off Lorie Gudimella [facility] Start: 08-28-2022 End: 08-28-2022 Patient encounter procedure Lorie Gudimella [facility] Start: 08-21-2022 End: 09-07-2022 ambulatory Amanda BARRIOS Facility:CD:[id number] Start: 08-17-2022 End: 08-18-2022 ambulatory Francisco Cruz Facility:[facility] Start: 08-16-2022 End: 08-18-2022 Observation Azra HOGAN [facility] Start: 08-15-2022 End: 08-15-2022 Emergency department patient visit Isai Hall Facility:[facility] Start: 08-13-2022 End: 08-14-2022 ambulatory Amanda BARRIOS Facility:[facility] Start: 08-13-2022 End: 08-13-2022 Patient encounter procedure Amanda BARRIOS [facility] Start: 06-07-2022 End: 06-10-2022 Evaluation and management of inpatient RESEARCH KENNEL SUPERVISOR Amanda Barrios Work Phone: [address] Work Phone: Start: 04-26-2022 End: 04-26-2022 Patient encounter procedure Amanda BARRIOS [facility] Start: 04-24-2022 End: 04-24-2022 Patient encounter procedure RESEARCH KENNEL SUPERVISOR Amanda Barrios Work Phone: [facility] [place] Work Phone: Start: 04-24-2022 End: 04-24-2022 ambulatory RESEARCH KENNEL SUPERVISOR Amanda Barrios Work Phone: [facility] Work Phone: Start: 04-24-2022 Office outpatient ne w 45 minutes Imad Asaad [facility] Start: 04-11-2022 End: 04-11-2022 Emergency department patient visit RESEARCH KENNEL SUPERVISOR Amanda Barrios Work Phone: [facility] Work Phone: Start: 04-03-2022 End: 04-04-2022 Emergency department patient visit LOGAN Barrios Work Phone: [facility] Work Phone: Start: 04-03-2022 End: 04-03-2022 Emergency department patient visit RESEARCH KENNEL SUPERVISORThomas Barrios Work Phone: [facility] Work Phone: Start: 04-01-2022 End: 04-01-2022 Emergency department patient visit LOGAN Barrios Work Phone: [facility] Work Phone: Start: 03-28-2022 End: 03-28-2022 Patient encounter procedure Amanda BARRIOS [facility] Start: 03-19-2022 End: 03-19-2022 Emergency department patient visit LOGAN Barrios Work Phone: [facility] Work Phone: Start: 03-13-2022 End: 03-13-2022 Emergency department patient visit DECLAN GOEL [facility] Start: 03-13-2022 Encounter for other general examination DECLAN GOEL [facility] Start: 03-13-2022 End: 03-13-2022 Emergency department patient visit Declan Goel MD Work Phone: [facility] Comment on above: Encounter for psycho logical evaluation (Primary Dx) Start: 03-13-2022 End: 03-13-2022 Patient encounter status Declan Goel MD Work Phone: [facility] Start: 03-12-2022 End: 03-13-2022 Emergency department patient visit PHU BARKER [facility] Start: 03-12-2022 End: 03-13-2022 Emergency department patient visit Phu Barker DO Work Phone: [facility] ED Comment on above: Acute alcoholic into xication with complication (HCC) (Primary Dx) Start: 03-09-2022 End: 03-09-2022 Emergency department patient visit LOGAN Barrios Work Phone: [facility] Work Phone: Start: 03-05-2022 End: 03-05-2022 Emergency department patient visit RESEARCH KENNEL SUPERVISORThomas Barrios Work Phone: [facility] Work Phone: Start: 02-20-2022 End: 02-21-2022 Emergency department patient visit RESEARCH KENNEL SUPERVISOR Amanda Barrios Work Phone: [facility] Work Phone: Start: 02-19-2022 End: 02-19-2022 Emergency department patient visit LOGAN Barrios Work Phone: [facility] Work Phone: Start: 10-06-2021 End: 10-06-2021 Off-Site Varun ZURITA [facility] Start: 09-19-2021 End: 09-19-2021 Patient encounter procedure Amanda BARRIOS [facility] Start: 07-27-2021 End: 07-28-[address] NONE LISTED REQUEST Facility: Start: 07-26-2021 End: 07-26-2021 Emergency department patient visit Isai Hall [facility] Start: 07-04-2021 End: 07-04-2021 Lab Drop off Amanda BARRIOS [facility] Start: 07-04-2021 End: 07-04-2021 Patient encounter procedure Amanda BARRIOS [facility] Start: 06-25-2021 End: 06-26-[address] NONE LISTED REQUEST Facility: Start: 05-31-2021 End: 06-01-2021 ambulatory MARIA E [facility] Start: 05-31-2021 End: 05-31-2021 Subsequent hospital visit by physician ABDIEL Jordan Start: 05-03-2021 End: 05-03-2021 Emergency department patient visit ZAIRE OSUNA [facility] Start: 05-03-2021 End: 05-03-2021 Emergency department patient visit Zaire Osuna MD Work Phone: [facility] ED Comment on above: Temporary high blood pressure (Primary Dx) Start: 05-03-2021 End: 05-03-2021 [facility] Start: 05-02-2021 End: 05-03-2021 Emergency department patient visit Declan Bradshaw MD Work Phone: [facility] Comment on above: Alcohol withdrawal s yndrome with complication (HCC) (Primary Dx) Start: 02-05-2021 End: 02-06-2021 Evaluation and management of inpatient Jeffery Bynum MD Facility:[facility] Start: 10-18-2020 Emergency department patient visit [facility] Start: 09-22-2020 End: 09-22-2020 Emergency department patient visit Chilo Glover [facility] Start: 08-19-2020 AUDIT Nini Wolf Work Phone: [facility] [facility] Work Phone: Start: 03-15-2020 Patient encounter procedure Nini Wolf [facility] Work Phone: Start: 03-12-2020 End: 03-12-2020 Emergency department patient visit [facility] Start: 03-11-2020 End: 03-11-2020 Emergency department patient visit Crescencio Emanuel Work Phone: [facility] ED Comment on above: Anxiety state (Prima ry Dx) Start: 03-10-2020 End: 03-10-2020 Emergency department patient visit CAR MCCARTHY [facility] Start: 03-10-2020 End: 03-10-2020 [facility]: [facility] Comment on above: Anxiety attack (Prim halima Dx) Start: 03-02-2020 Patient encounter procedure Nini Wolf [facility] Work Phone: Start: 01-20-2020 Patient encounter procedure Nini Wolf [facility] Work Phone: Start: 01-06-2020 Patient encounter procedure Nini Wolf [facility] Work Phone: Start: 12-23-2019 Patient encounter procedure Nini Wolf [facility] Work Phone: Start: 11-03-2019 Patient encounter procedure Nini Wolf [facility] Work Phone: Start: 10-23-2019 Patient encounter procedure Nini Wolf [facility] Work Phone: Start: 10-13-2019 Patient encounter procedure Nini Wolf [facility] Work Phone: Start: 09-08-2019 Patient encounter procedure Nini Wolf [facility] Work Phone: Start: 09-03-2019 Patient encounter procedure Nini Wolf [facility] Work Phone: Start: 08-13-2019 Patient encounter procedure Nini Wolf [facility] Work Phone: Start: 06-22-2019 Patient encounter procedure Nini Wolf [facility] Work Phone: Start: 05-20-2019 Patient encounter procedure Nini Wolf [facility] Work Phone: Start: 04-17-2019 Patient encounter procedure Nini Wolf [facility] Work Phone: Start: 04-03-2019 Patient encounter procedure Nini Wolf [facility] Work Phone: Start: 02-24-2019 Patient encounter procedure Nini Wolf [facility] Work Phone: Start: 02-17-2019 Patient encounter procedure Nini Wolf [facility] Work Phone: Start: 01-14-2019 Patient encounter procedure Nini Wolf [facility] Work Phone: Start: 12-20-2018 End: 12-20-2018 Emergency department patient visit Luis Mo Work Phone: [facility] ED Comment on above: Anxiety state (Prima ry Dx); Alcohol abuse Start: 11-01-2018 End: 11-01-2018 Emergency department patient visit Mundo Guzman Work Phone: [facility] ED Comment on above: Pain of left upper a rm (Primary Dx); Elevated d-dimer Start: 06-21-2018 End: 06-21-2018 Emergency department patient visit ELVIS [facility] Procedures Date Procedure Procedure Detail Performing Clinician Start: 04-08-2023 Urine culture RESEARCH KENNEL SUPERVISOR Sandoval junie Antwonjulio Work Phone: Start: 03-17-2023 Urine culture Diamante B rubio Work Phone: Start: 01-25-2023 Streptococcus pyogen es antigen assay DO Ari More Work Phone: Start: 01-25-2023 Urine culture DO Ari More Work Phone: Start: 12-16-2022 SARS-COV-2 PCR, SCRE EN ASYMPTOMATIC NINI MCCOLLUM Start: 12-16-2022 Sars-cov-2 detection by dna/rna Jessica Mcdowell DO Work Phone: Start: 12-15-2022 DRUG SCREEN,URINE NINI BERNABE Start: 12-15-2022 Drug tst prsmv instr mnt chem analyzers pr date Jessica Mcdowell DO Work Phone: Start: 12-15-2022 DRUG SCREEN,URINE NINI LOERATANVIR Start: 12-15-2022 HCG, URINE, QUALITATIVE NINI COPELANDLEY Start: 12-15-2022 URINALYSIS WITH REFL EX MICROSCOPIC NINI COPELANDLEY Start: 12-15-2022 ACUTE TOXICOLOGY ALBERT EL, BLOOD NINI COPELANDLEY Start: 12-15-2022 CBC W Auto Different ial panel - Blood NINI COPELANDLEY Start: 12-15-2022 Comprehensive metabo lic 2000 panel - Serum or Plasma NINI COPELANDLEY Start: 12-15-2022 Morphology Adan (Bld) [Interp] NINI MCCOLLUM Start: 12-14-2022 ECG 12-LEAD NINI MCCOLLUM Start: 12-14-2022 INITIATE REQUEST TO ANOTHER FACILITY NINI MCCOLLUM Start: 12-14-2022 INSERT PERIPHERAL IV AM Y MCCOLLUM Start: 12-14-2022 SALINE LOCK IV NINI COPELANDL EY Start: 12-14-2022 Drug tst prsmv instr [...] Start: 10-11-2022 Ultrasound elastogra phy of liver RESEARCH KENNEL SUPERVISOR Amanda Barrios Work Phone: Start: 08-30-2022 Throat culture Amanda MICHEL Comment on above: Performed By: #### [id number] ####[facility] [place] [address] Start: 06-07-2022 Plain chest X-ray RESEARCH KENNEL SUPERVISOR Amanda Barrios Work Phone: Start: 04-11-2022 Plain chest X-ray LOGAN Barrios Work Phone: Start: 04-03-2022 Blood culture for ba cteria, including anaerobic screen LOGAN Barrios Work Phone: Start: 04-03-2022 Plain X-ray of right hand LOGAN Barrios Work Phone: Start: 03-12-2022 Drug tst prsmv instr mnt chem analyzers pr date Phu Barker DO Work Phone: Start: 03-12-2022 Urnls dip stick/tabl et rgnt auto w/o microscopy Phu Barker DO Work Phone: Start: 03-12-2022 Ct head/brain w/o co ntrast material Phu Barker DO Work Phone: Start: 03-12-2022 Assay of acetaminophen Phu Barker DO Work Phone: Start: 03-12-2022 Assay of ethanol Phu Barker DO Work Phone: Start: 03-12-2022 Assay of salicylate Rachael tiffani Barker DO Work Phone: Start: 03-12-2022 Comprehensive metabo lic panel Phu Barker DO Work Phone: Start: 05-31-2021 25 hydroxy [...] Wolf Start: 02-17-2019 Assay of ferritin Nini Chatman noah Start: 02-17-2019 Assay of folic acid serum [...] routine ecg w/le ast 12 lds w/i&r [facility] Start: 06-21-2018 Assay of ethanol [facility] Start: 06-21-2018 Assay of troponin quantitative [facility] Start: 06-21-2018 Blood count complete auto&auto difrntl wbc [facility] Start: 06-21-2018 Comprehensive metabo lic panel [facility] Start: 06-21-2018 Assay of lactate [facility] Start: 06-21-2018 Radiologic exam ches t single view [facility] Start: 06-21-2018 Drug screen class list a [facility] Start: 06-21-2018 Urnls dip stick/tabl et rgnt auto w/o microscopy [facility] Start: 02-11-2017 Loop electrosurgical excision procedure of cervix Nini Wolf Work Phone: Diabetes mellitus screening Imad Asaad Other Hyperlipidemia screening Dona d Asaad Other LOOP electro excisio n of cervix Nini Wolf Comment on above: Completed: 2017 None (qualifier value) Amanda BARRIOS Plan of Treatment Date Care Activity Detail Author Start: 01-04-2057 Pneumococcal 0-64 ye ars Vaccine (2 of 2 - PPSV23) Pneumococcal 0-64 years Vaccine (2 of 2 - PPSV23) [facility] Start: 01-04-2042 Zoster Vaccines (1 o f 2) Zoster Vaccines (1 of 2) [facility] Start: 04-10-2031 DTaP/Tdap/Td vaccine (3 - Td or Tdap) DTaP/Tdap/Td vaccine (3 - Td or Tdap) [facility] Start: 04-10-2031 DTaP/Tdap/Td vaccine (5 - Td or Tdap) DTaP/Tdap/Td vaccine (5 - Td or Tdap) [facility] Start: 04-10-2031 DTaP/Tdap/Td Vaccine s (4 - Td or Tdap) DTaP/Tdap/Td Vaccines (4 - Td or Tdap) [facility] Start: 03-27-2024 Lipid panel Lipid Panel [facility] Start: 08-10-2023 [facility] Start: 08-06-[address] [facility] Start: 03-17-2023 Bacteria identified in Urine by Culture [facility] Start: 03-12-2023 [facility] Start: 01-25-2023 Bacteria identified in Urine by Culture Urine Culture [facility] Start: 10-12-2022 Influenza vaccination Influenza Vacc ine (#1) [facility] Start: 10-11-2022 [facility] Start: 06-10-2022 [facility] Start: 06-07-2022 Referral to Unit Support Representative [facility] Start: 06-07-2022 Sleep disorder assessment [facility] Start: 06-07-[address] [facility] Start: 04-03-2022 [facility] Start: 04-03-2022 Bacteria identified in Blood by Culture [facility] Start: 04-03-2022 Blood culture for bacteria, including anaerobic screen Blood Culture [facility] Start: 04-03-2022 [facility] Start: 01-04-2022 Screening for malign ant neoplasm of cervix [facility] Start: 10-12-2021 Influenza vaccination Flu vacc ine (Season Ended) [facility] Start: 09-11-2021 Influenza vaccination Flu vaccine (# 1) [facility] Start: 12-14-2020 COVID-19 Vaccine (3 - Booster for Pfizer series) COVID-19 Vaccine (3 - Booster for Pfizer series) [facility] Start: 10-12-2020 Influenza vaccination Flu vaccine (# 1) [facility] Start: 10-11-2020 FUV, Provider: Nini Wolf, Status: Pen, Time: 10:00 AM FUV, Provider: Nini Wolf, Status: Pen, Time: 10:00 AM -Gastroenterology [facility] [address] [facility] Work Phone: Start: 10-11-2020 Patient encounter procedure [facility] [place] Start: 09-08-2020 COVID-19 Vaccine (3 - Booster for Pfizer series) COVID-19 Vaccine (3 - Booster for Pfizer series) [facility] Start: 09-08-2020 COVID-19 Vaccine (3 - Pfizer series) COVID-19 Vaccine (3 - Pfizer series) [facility] Start: 10-13-2019 Influenza vaccination Flu vaccine (# 1) [place], [place] Start: 12-22-2018 End: 12-22-2018 [facility] 12/22/2018 [facility] Psychiatry Parag Le, LOGAN - BREW[employer] WORK[employer] [address] [place] [address] [phone] [facility] Start: 11-24-2018 End: 11-24-2018 Office Visit [facility] Start: 10-12-2018 Influenza vaccination Flu vaccine (# 1) [place], [place] Start: 12-14-2017 Pneumococcal 0-64 ye ars Vaccine (2 - PCV) Pneumococcal 0-64 years Vaccine (2 - PCV) [facility] Start: 01-04-2013 Cervical cancer screen Cervical canc er screen [place], [place] Start: 01-04-2013 Screening for malign ant neoplasm of cervix [facility] Start: 01-04-2011 DTaP/Tdap/Td vaccine (2 - Tdap) DTaP/Tdap/Td vaccine (2 - Tdap) [place], [place] Start: 01-04-2011 Hepatitis A Vaccines (1 of 2 - Risk 2-dose series) Hepatitis A Vaccines (1 of 2 - Risk 2-dose series) [facility] Start: 01-04-2010 Hepatitis C screening Hepatitis C sc reen [facility] Start: 01-04-2007 HIV screen HIV screen [place], [place] Start: 01-04-2007 HIV screening HIV screen [facility] Start: 01-04-2007 HPV vaccine (1 - Fem faye 3-dose series) HPV vaccine (1 - Female 3-dose series) [place], [place] Start: 01-04-2005 Varicella Vaccine (1 of 2 - 13+ 2-dose series) Varicella Vaccine (1 of 2 - 13+ 2-dose series) [place], [place] Start: 2004 Depression Monitoring Depression Mon itoring [facility] Start: 01-04-2003 DTaP/Tdap/Td vaccine (2 - Tdap) DTaP/Tdap/Td vaccine (2 - Tdap) [place], [place] Start: 01-04-2003 HPV vaccine (1 - Fem faye 2-dose series) HPV vaccine (1 - Female 2-dose series) [place] Start: 10-13-1997 Varicella vaccination Varicell a Vaccines (1 of 2 - 2-dose childhood series) [facility] Start: 01-04-1993 Varicella vaccine (1 of 2 - 2-dose childhood series) Varicella vaccine (1 of 2 - 2-dose childhood series) [facility] Start: 1992 Hepatitis B Vaccines (1 of 3 - 3-dose series) Hepatitis B Vaccines (1 of 3 - 3-dose series) [facility] Start: 1992 Hepatitis C screening Hepatitis C sc reen [facility] Start: 1992 Yearly Adult Physical Yearly Adult P hysical [facility] Albumin/Globulin ratio [facility] Anion gap measurement [facility] Bacteria identified in Urine by Culture [facility] Basophils [#/volume] in Blood by Automated count [facility] Basophils/100 leukocytes in Blood by Automated count [facility] EKG 12 Lead EKG 12 Lead ECG STAT 12/20/2018 9:33 PM EST [place], [place] EKG 12 Lead EKG 12 Lead ECG Routine 05/03/2021 9:49 AM EDT [facility] Work Phone: End: 12-14-2022 Electrocardiogram, 12-lead [facility] Service Area Work Phone: Comment on above: As needed until disc ontinued starting 12/14/2022 Once for 1 Occurrenc es starting 12/14/2022 until 12/14/2022 Eosinophils/100 leukocytes in Blood by Automated count [facility] Erythrocyte distribution width [Ratio] by Automated count [facility] Erythrocyte sedimentation rate by Photometric method [facility] Erythrocytes [#/volu me] in Blood [facility] Ethanol [Mass/volume ] in Serum or Plasma [facility] Globulin [Mass/volum e] in Serum [facility] Hematocrit [Volume Fraction] of Blood [facility] Hemoglobin [Mass/volume] in Blood [facility] Hepatitis A virus Ab [Presence] in Serum by Immunoassay [facility] Hepatitis B core antibody measurement [facility] Hepatitis B virus DN A [#/volume] (viral load) in Serum or Plasma by MOISES with probe detection [facility] Hepatitis B virus DN A [log units/volume] (viral load) in Serum or Plasma by MOISES with probe detection [facility] Hepatitis B virus DN A [Units/volume] (viral load) in Serum or Plasma by MOISES with probe detection [facility] Hepatitis B virus surface Ab [Presence] in Serum [facility] Hepatitis B virus surface Ag [Presence] in Serum or Plasma by Immunoassay [facility] Hepatitis C virus RN A [log units/volume] (viral load) in Serum or Plasma by MOISES with probe detection [facility] HIV 1+2 Ab+HIV1 p24 Ag [Presence] in Serum or Plasma by Immunoassay [facility] Leukocytes [#/volume ] corrected for nucleated erythrocytes in Blood by Automated coun [facility] Leukocytes [#/volume ] in Blood [facility] Lymphocytes [#/volum e] in Blood by Automated count [facility] Lymphocytes/100 leukocytes in Blood by Automated count [facility] MCH [Entitic mass] b y Automated count [facility] MCHC [Mass/volume] b y Automated count [facility] MCV [Entitic volume] by Automated count [facility] Measurement of Hepatitis delta virus antibody [facility] Monocytes [#/volume] in Blood by Automated count [facility] Monocytes/100 leukocytes in Blood by Automated count [facility] Neutrophils [#/volum e] in Blood by Automated count [facility] Neutrophils/100 leukocytes in Blood by Automated count [facility] Nucleated erythrocyt es [Presence] in Blood by Automated count [facility] Patient Education [facility] Work Phone: Patient referral [facility] Work Phone: Platelet mean volume [Entitic volume] in Blood by Automated count [facility] Platelets [#/volume] in Blood [facility] End: 11-01-2018 VL DUP UPPER EXTREMITY VENOUS LEFT VL DUP UPPER EXTREMITY VENOUS LEFT Imaging Routine Once for 1 Occurrences starting 11/01/2018 until 11/01/2018 [facility], [place] Comment on above: Once for 1 Occurrenc es starting 11/01/2018 until 11/01/2018 [facility] NEGATED: Highlighted row has been ruled out! Planned Goals not documented [facility] Work Phone: Immunizations Immunization Date Immunization Notes Care Provider Bianka [facility] 04-01-2022 tetanus toxoid, redu perry diphtheria toxoid, and acellular pertussis vaccine, adsorbed RESEARCH KENNEL SUPERVISOR Amanda Barrios Work Phone: [facility] 04-10-2021 tetanus toxoid, redu perry diphtheria toxoid, and acellular pertussis vaccine, adsorbed RESEARCH KENNEL SUPERVISOR Amanda Barrios Work Phone: [facility] 07-14-2020 COVID-19 mRNA, Comirnaty (Pfizer) RESEARCH KENNEL SUPERVISOR Amanda Robjulio Work Phone: [facility] 06-23-2020 COVID-19 mRNA, Comirnaty (Pfizer) RESEARCH KENNEL SUPERVISOR Amanda Barrios Work Phone: [facility] 11-19-2017 influenza, seasonal, injectable; Translations: [Fluzone Quadravalent] Amanda BARRIOS [facility] Comment on above: Reason for Medicatio n: Other (see comment) 11-19-2017 influenza virus vaccine, unspecified formulation Amy Steele MD Work Phone: [facility] Work Phone: 12-14-2016 pneumococcal polysaccharide vaccine, 23 valent [facility] 05-01-2016 tetanus toxoid, redu perry diphtheria toxoid, and acellular pertussis vaccine, adsorbed Amanda ROBUCK [facility] 04-23-2012 influenza, seasonal, injectable Amanda ROBUCK [facility] 04-23-2012 tetanus toxoid, redu perry diphtheria toxoid, and acellular pertussis vaccine, adsorbed Amanda ROBUCK [facility] Comment on above: Reason for Medicatio n: Other (see comment) 09-15-1997 DTaP, unspecified formulation Amanda ROBUCK [facility] 09-15-1997 measles, mumps and rubella virus vaccine Amanda ROBUCK [facility] NEGATED: Highlighted row has not occurred!11-30-2022 influenza virus vaccine, unspecified formulation CARRIE PEREZ [facility] NEGATED: Highlighted row has not occurred!11-30-2022 SARS-CoV-2 mRNA (tozinameran 5y-11y) vaccine CADWELL PEREZ [facility] NEGATED: Highlighted row has not occurred!03-28-2022 influenza virus vaccine, unspecified formulation Amanda ROBJULIO [facility] Payers Date Payer Category Payer Unknown [id number] 2022 Self-pay [id number] 2018 Medicaid [id number] 2018 Unknown 2016 Unknown [facility] MEDICAID xxxxxxxxxxx 2016-Present [phone] CLAIMS DEPARTMENT [address] [place] [address] xxxxxxxxxxx [id number]. [id number] 1992 Unknown [id number] 2.16.840.1.452727.3.579.2.182 1992 Unknown [id number] 2.16.840.1.754443.3.579.2.185 1992 Unknown [id number] 2.16.840.1.799104.3.579.2.174 1992 Unknown [id number] 2.16.840.1.686834.3.579.2.174 1992 Unknown [id number] 2.16.840.1.034178.3.579.2.196 1992 Unknown [id number] 2.16.840.1.947569.3.579.2.177 1992 Unknown [id number] 2.16.840.1.942458.3.579.2.204 1992 Unknown [id number] 2.16.840.1.214812.3.579.2.593 1992 Unknown [id number] 2.16.840.1.834858.3.579.2.593 1992 Unknown [id number] 2.16.840.1.601569.3.579.2.176 1992 Unknown [id number] 2.16.840.1.787490.3.579.2.175 1992 Unknown [id number] 2.16.840.1.025778.3.579.2.175 1992 Unknown [id number] 2.16.840.1.508623.3.579.2.1243 1992 Unknown [id number] 2.16.840.1.411201.3.579.2 1992 Unknown [id number] 2.16.840.1.697054.3.579.2 1992 Unknown [id number] 2.16.840.1.221864.3.579.2 1992 Unknown [id number] 2.16.840.1.072079.3.579.2 1992 Unknown [id number] 2.16.840.1.498971.3.579.2 1992 Unknown [id number] 2.16.840.1.400112.3.579.2 1992 Unknown [id number] 2.16.840.1.596046.3.579.2 1992 Unknown [id number] 2.16.840.1.774811.3.579.2 1992 Unknown [id number] 2.16.840.1.144714.3.579.2 1992 Unknown [id number] 2.16.840.1.309699.3.579.2 1992 Unknown [id number] 2.16.840.1.950747.3.579.2 1992 Unknown [id number] 2.16.840.1.274454.3.579.2 1992 Unknown [id number] 2.16.840.1.042913.3.579.2 1992 Unknown [id number] 2.16.840.1.220294.3.579.2 1992 Unknown [id number] 2.16.840.1.158196.3.579.2 1992 Unknown [id number] 2.16.840.1.850384.3.579.2 1992 Unknown [id number] 2.16.840.1.993149.3.579.2. 1992 Unknown [id number] 2.16.840.1.572223.3.579.2 1992 Unknown [id number] 2.16.840.1.646711.3.579.2 1992 Unknown [id number] 2.16.840.1.555102.3.579.2 1992 Unknown [id number] 2.16.840.1.485593.3.579.2 1992 Unknown [id number] 2.16.840.1.744319.3.579.2 1992 Unknown [id number] 2.16.840.1.268868.3.579.2 1992 Unknown [id number] 2.16.840.1.771585.3.579.2 1992 Unknown [id number] 2.16.840.1.849200.3.579.2 1992 Unknown [id number] 2.16.840.1.812749.3.579.2 1992 Unknown [id number] 2.16.840.1.967173.3.579.2 1992 Unknown [id number] 2.16.840.1.837427.3.579.2 1992 Unknown [id number] 2.16.840.1.868572.3.579.2 1992 Unknown [id number] 2.16.840.1.536230.3.579.2 1992 Unknown [id number] 2.16.840.1.040939.3.579.2 1992 Unknown [id number] 2.16.840.1.638174.3.579.2. 1992 Unknown [id number] 2.16.840.1.131368.3.579.2. 1992 Unknown [id number] 2.16.840.1.489466.3.579.2 1992 Unknown [id number] 2.16.840.1.613537.3.579.2. 1992 Unknown [id number] 2.16.840.1.726662.3.579.2 1992 Unknown [id number] 2.16.840.1.564004.3.579.2 1992 Unknown [id number] 2.840.1.110600.3.579.2 1992 Unknown [id number] 2.840.1.791810.3.579.2 1992 Unknown [id number] 2.840.1.433098.3.579.2 1992 Unknown [id number] 2.16.840.1.497177.3.579.2 1992 Unknown [id number] 2.16840.1.657298.3.579.2 1992 Unknown [id number] 2.16840.1.370449.3.579.2 1992 Unknown [id number] 2.16840.1.151596.3.579.2. 1959 Unknown [id number] Medicare Medicare [id number] Unknown [facility] Program [id number] Unknown [id number] 2.16840.1.022189.3.579.2.531 Unknown [id number] 2.840.1.446390.3.579.2.531 Unknown [id number] 2.16.840.1.258645.3.579.2.531 Unknown [id number] 2.16.840.1.425051.3.579.2.531 Unknown [id number] 2.16.840.1.568961.3.579.2.531 Unknown [id number] 2.16.840.1.983917.3.579.2.531 Unknown [id number] 2.16.840.1.650702.3.579.2.531 Unknown [id number] 2.16.840.1.760153.3.579.2.531 Unknown [id number] 2.16.840.1.875438.3.579.2.531 Unknown [id number] 2.16.840.1.397145.3.579.2.531 Unknown [id number] 2.16.840.1.746592.3.579.2.531 Unknown [id number] 2.16.840.1.249255.3.579.2.531 Unknown [id number] 2.16.840.1.561458.3.579.2.531 Unknown [id number] 2.16.840.1.081078.3.579.2.531 Social History Date Type Detail Facility Start: 11-01-2018 End: 03-12-2022 Tobacco smoking status NHIS Current every day smoker [place], [place] History of tobacco use Cigarette Smoker [place] Start: 11-01-2018 End: 03-13-2022 Cigarettes smoked current (pack per day) - Reported [place], [place] Comment on above: 4 [employer]; Start: 02-12-2000 Alcohol intake No [place], [place] Start: 1990 Sex Assigned At Female M [place], [place] Start: 03-10-2020 End: 03-12-2022 Tobacco use and exposure Never used [place] Start: 03-10-2020 End: 03-13-2022 Alcohol intake Current drinker of alcohol (finding) [place] Start: 04-23-2021 End: 12-14-2022 Exposure to SARS-CoV-2 (event) [facility] Start: 12-20-2018 Alcohol Comment 8-12 beers karan ly plus liquor at times [facility] Tobacco smoking consumption unknown [facility] Start: 03-14-2021 End: 05-03-2021 Alcohol intake Ex-drinker (finding) [employer] Work Phone: Start: 05-03-2021 History SDOH Alcohol Comment currently at [facility] for alcohol. last drink was 12 days ago [employer] Work Phone: Start: 07-04-2021 End: 07-14-2023 Tobacco smoking status Heavy tobacco smoker (finding) [facility] Tobacco smoking status Never [facility] Start: 02-19-2022 End: 01-08-2023 Tobacco smoking status NHIS Never smoked tobacco (finding) [facility] Start: 03-09-2022 End: 08-07-2023 Tobacco smoking status TNIS Smoker (finding) [facility] Start: 03-12-2022 Alcohol Comment drank 02/15 toda y 03/12/2022---currently at [facility] for alcohol. last drink was 12 days ago [employer] Work Phone: Start: 03-13-2022 History SDOH Alcohol Frequency 5 [employer] Work Phone: Start: 1990 Sex Assigned At Not on file [facility] Work Phone: NEGATED: Highlighted row - - -[facility] Internal Medicine Work Phone: NEGATED: Highlighted row [facility] Goals Date Patient Goal Desired Activity /State Functional Status Date Assessment Result Facility 08-10-2023 Functional status Patient at Baseline [facility] Work Phone: 08-06-2023 Functional Status N/A [facility] 07-14-2023 Functional Status N/A [facility] 07-05-2023 Functional Status N/A [facility] 07-03-2023 Functional Status N/A [facility] 06-30-2023 Functional Status N/A [facility] 06-17-2023 Functional Status N/A [facility] 06-03-2023 Functional Status N/A [facility] 04-19-2023 Functional Status N/A [facility] 2023 Functional Status N/A [facility] 2023 Functional Status [facility] 01-02-2023 Functional Status N/A [facility] 12-10-2022 Functional Status N/A [facility] 12-10-2022 Functional Status N/A [facility] 11-30-2022 Functional Status N/A [facility] 11-04-2022 Functional Status N/A [facility] 08-17-2022 Functional Status No [facility] 08-16-2022 Functional Status N/A [facility] 08-13-2022 Functional Status N/A [facility] 06-10-2022 Functional status Patient at Baseline [facility] Work Phone: 07-26-2021 Functional Status N/A [facility] NEGATED: Highlighted row Functional performance Functional status health issues are not documented Disease [facility] Internal [facility] Work Phone: Mental Status Date Assessment Result Facility 08-10-2023 Cognitive function Cognitive Sta tus Patient at Baseline [facility] Work Phone: 06-10-2022 Cognitive function Cognitive Sta tus Patient at Baseline [facility] Work Phone: NEGATED: Highlighted row Cognitive function [Interpretation] Cognitive status health issues are not documented Disease [facility] Work Phone: Clinical Notes 02-05-2021 to 08-10-2023 Note Date & Type Note Facility 08-10-2023 Discharge summary Note Date/Time August 10, 2023 11:00am [facility] [address] [place] [address] Discharge Summary Signed Patient: Lyle Bailey MR#: [id number] : 1990 Acct:[id number] Age/Sex: 33 / F Adm Date: 4 Loc: Room: [address] [place] [address]: Piyush Pace MD Copies to: MD Amanda Resendez RESEARCH KENNEL SUPERVISOR, COMMISSIONER CONSERVATION OF RESOURCES~ Providers Date of Discharge: 08/10/23 Discharging Provider: Piyush Pace Primary Care Provider: Amanda Barrios Discharge Diagnosis (1) Acute psychosis: Final Diagnosis Final Discharge Diagnosis: Unspecified psychosis Stimulant use disorder Summary Hospital Course Hospital course: Ms. Baiely is a 33 year old female with [...] couple days. Her last admission was at [facility] on July 05, 2023 for psychosis. [...] Instructions: Important Contact Information You can call [facility] at [phone] any time day or night if you have emergent questions or question regarding discharge instructions. If at any time you are feeling an increase inyour psychiatric symptoms, call your physician or behavioral healthcare provider. If any time you have thoughts of harming yourself or others contact one of the following: Call 9-8-8 (available 03/09) Crisis Text Line (available 03/09) text 4HOPE to [phone] [facility] Hope Line (available 8 a.m. Midnight) call [phone] ([phone]) Regular diet No Activity Restrictions Instructions: Bipolar Disorder (DC), [facility] Behavioral Health DC Instructions, Know your Meds [...] tablet 10 mg PO DAILY Follow Up: [facility] ([place]) [Outside] (Jada Colby NP, Call this office on Saturday08/12/2023 for a follow up appointment. ) Amanda Barrios APRN, BREWERY CELLAR WORKER-C [Primary Care Provider] - (Please contact for any medical needs or concerns) Exam Physical Exam Vital Signs: Temp Pulse Resp BP Pulse Ox O2 Del Method 97.3 F L 68 18 125/92 97 Room Air 08/10/23 07:29 08/10/23 07:29 08/10/23 07:29 08/10/23 07:29 08/10/23 07:29 08/10/23 07:29 Documented By: Piyush Pace MD 08/10/23 1056 Signed By: <Electronically signed by Piyush Pace MD> 08/10/23 1116 [facility] Work Phone: 1(227) 893-233706-28-2024 Progress note Author Piyush Pace [facility] August 09, 2023 11:39am Note Date/Time August 09, 2023 11:3 9am [facility] [address] [place] [address] Psychiatry Progress Note Signed Patient: Lyle Bailey MR#: [id number] : 1990 Acct:[id number] Age/Sex: 33 / F Adm Date: 4 Loc: 1S Room: 6Z1906-2 Type : ADM IN Attending Dr: Piyush [...] and staff) Documented By: Piyush Pace MD 08/09/231137 Signed By: <Electronically signed by Piyush Pace MD> 08/09/23 1134 [facility] Work Phone: 1(795) 362-579906-27-2024 Progress note Author Piyush Pace [facility] August 08, 2023 12:29pm Note Date/Time August 08, 2023 10:2 6am [facility] [address] [place] [address] Psychiatry Progress Note Signed Patient: Lyle Bailey MR#: [id number] : 1990 Acct:[id number] Age/Sex: 33 / F Adm Date: 4 Loc: Room: [address] [place] [address] Type : ADM IN Attending Dr: Piyush [...] <Electronically signed by Piyush Pace MD> 08/08/23 1228 [facility] Work Phone: 1(277) 492-447806-26-2024 History and physical note Author Piyush Pace [facility] August 07, 2023 12:27pm Note Date/Time August 07, 2023 10:4 1am [facility] [address] [place] [address] Psychiatry H&P Signed Patient: Lyle Bailey MR#: [id number] : 1990 Acct:[id number] Age/Sex: 33 / F Adm Date: 4 Loc: 1S Room: [address] [place] [address] Type: ADM IN Attending Dr: Piyush Pace [...] couple days. Her last admission was at [facility] on July 05, 2023 for psychosis. [...] this with the medical student as notedbelow. Patient reported that she may have taken some Adderall with her alcohol. She stated that she is not too sure what else happened. She reported that she does not want to take Invega Sustenna anymore because it causes some weight gain. She is open to trying Geodon. History of Present Illness History of present illness: [facility] Medical History Accidental heroin overdose Anxiety Blood [...] and staff) Documented By: Piyush Pace MD 08/07/23 0955 Signed By: <Electronically signed by Piyush Pace MD> 08/07/23 8377 [facility] Work Phone: 1(521) 154-997306-25-2024 NotePatient was signed out to me by the outgoing provider. At the time of signout she is medically cleared and awaiting evaluation by [facility]. [facility] called and evaluated the patient and reports to us that earlier today she did tell someone thatshe was, she was self in the head and for this reason they want her admitted to [facility] psychiatric unit for further evaluation. Patient was [facility] in stable condition.[facility]Result Comment: Electronically Signed By: Darren Guzman DO\.br\Date and Time Signed: 08/06/23 20:28 [id number] Evaluation + Plan note Diagnostic Tests Pending * Urine Culture 07/14/23 * Chlam/GC/Trich,MOISES 07/14/[address] [facility]06-02-2024 Hospital Discharge instructions Patient Education 07/14/2023 [...] require a prescription. You can also purchase clrc-spe-flfcsns medicines. Medicines may have nicotine in them [...] and encouragement. Call telephone quitlines, such as 4-693-IGZC-NOW, reach out to support groups, or work [...] provider. Document Revised: 01/19/2022 Document Reviewed: 01/19/2022 [employer] Patient Education 2022 [employer]. 07/14/2023 11:56:21 Health Risks of Smoking Health [...] to children increases the risk of: Sudden syndrome (SIDS). Infections in the nose, throat, [...] Department of Health and Human Services: www.smokefree.gov [employer] Lung Association: www.freedomfromsmoking.org [employer] Heart Association: www.heart.org Where to find more [...] provider. Document Revised: 01/30/2022 Document Reviewed: 01/30/2022 [employer] Patient Education 2022 [employer]. 07/14/2023 11:56:19 BMI for Adults BMI for [...] numbers. This can be done either in Mong[place]ian ([place] or metric measurements. Note that charts and online BMI calculators are available to help you find your BMI quickly and easily without having to do these calculations yourself. To calculate your BMI in Mongolian ([place] measurements: 1.Measure your weight in pounds [...] Centers for Disease Control and Prevention: www.cdc.gov [place] [employer] Heart Association: www.heart.org National Heart, Lung, and Blood [place]: www.nhlbi.nih.gov Summary Body mass index (BMI) is a number that is calculated from a person's weight and height. BMI may help estimate how much of a person's weight is composed of fat. BMI can help identify thosewho may be at higher risk for certain medical problems. BMI can be measured using Mongolian measurements or metric measurements. BMI charts are used to identify whether you are underweight, normal weight, overweight, or obese. This information is not intended to replace advice given to you by your health care provider. Make sure you discuss any questions you have with your health care provider. Document Revised: 10/21/2019 Document Reviewed: 08/28/2019 [employer] Patient Education 2022 [employer]. 07/14/2023 11:56:17 Dysuria Dysuria Dysuria is pain [...] Follow these instructions at home: Medicines Take vufv-ozr-dkfotng and prescription medicines only as told by [...] provider. Document Revised: 09/09/2020 Document Reviewed: 09/09/2020 [employer] Patient Education 2022 [employer]. Follow Up Care 07/14/2023 09:17:40 With:Amanda BARRIOS CNP Address: [address] [place], [place] [address]- When: Unknown [facility] 05-24-2024 Evaluation + [...] was evaluated by [facility] excepted to clear [place] by Dr. Burrosw. Kerry Linton DO FAAEM [facility]05-22-2024 Evaluation + Plan noteExtracted from: Title:ED [...] Routine Capillary Glucose POC Saline Lock Insert [facility]05-22-2024 Hospital Discharge instructions Patient Education 07/03/2023 10:43:33 Seizure, Adult, Ccvb-vj-Pinu Seizure, Adult A seizure is a sudden [...] Follow these instructions at home: Medicines Take siev-ewh-bvglxkn and prescription medicines only as told by [...] the [place]., ask your local department of motor vehicles when you can drive. Get a lot [...] away. Call your local emergency services (911 int [place] Do not wait to see if [...] medicines are used to treat seizures. Take qipv-vqp-sqgontg and prescription medicines only astold by your doctor. This information is not intended to replace advice given to you by your health care provider. Make sure you discuss any questions you have with your health care provider. Document Revised: 08/05/2020 Document Reviewed: 08/05/2020 [employer] Patient Education 2022 [employer] 07/03/2023 10:43:33 Alcohol Withdrawal Syndrome, Sprg-yd-Ksiz Alcohol Withdrawal Syndrome Alcohol withdrawal syndrome is [...] groups. Follow these instructions at home: Take zkgm-lvd-qcxdpzg and prescription medicines only as told by [...] provider. Document Revised: 04/11/2022 Document Reviewed: 04/11/2022 [employer] Patient Education 2022 [employer]. Follow Up Care 07/03/2023 07:31:38 With:Amanda BARRIOS Address: [address] [place], [place] [address] [facility] (1) When:1 to 2 days only if needed [facility]05-20-2024 Hospital Discharge instructions Patient Education 06/30/2023 [...] beverage between alcoholic drinks. General instructions Take jqel-rvf-maolnkg and prescription medicines only as told by your health care provider. Do not drive after drinking any amount of alcohol. Plan for a designated home delivery driver or another way to go home. [...] the National Suicide Prevention Lifeline at or 646. This is open 24 hours a day. Text the Crisis Text Line at 716023. Summary Alcohol intoxication occurs when a person [...] provider. Document Revised: 04/16/2022 Document Reviewed: 04/16/2022 [employer] Patient Education 2022 [employer]. Follow Up Care 06/30/2023 13:43:14 With:Amanda JOANA Address: [address] [place], [place] [address] Business (1) When:Within 3 Day([address]) [facility]05-19-2024 Evaluation + Plan noteExtracted from: Title:ED [...] Saline Lock Insert UA with Cult Rflx [facility]05-06-2024 Hospital Discharge instructions Patient Education 06/17/2023 [...] Follow these instructions at home: Medicines Take uwae-bip-nqstvsa and prescription medicines only as told by [...] provider. Document Revised: 09/09/2020 Document Reviewed: 09/09/2020 [employer] Patient Education 2022 [employer] 06/17/2023 15:52:47 Safe Sex Safe Sex Practicing [...] STI. Follow these instructions at home: Take vvno-hif-ufwyirv and prescription medicines only as told by [...] provider. Document Revised: 07/04/2020 Document Reviewed: 07/04/2020 [employer] Patient Education 2022 [employer]. Follow Up Care 06/17/2023 11:53:17 With:Amanda BARRIOS CNP Address: [address] [place] [address]- When: Unknown [facility] 04-23-2024 Hospital Discharge [...] Treatment for this condition includes: Antibiotic medicine. Yutq-ktz-fthvgio medicines to treat discomfort. Drinking enough water [...] Follow these instructions at home: Medicines Take ntzb-kev-trvzcna and prescription medicines only as told by [...] provider. Document Revised: 09/09/2020 Document Reviewed: 09/09/2020 [employer] Patient Education 2022 [employer]. Follow Up Care 06/03/2023 20:13:28 With:Amanda BARRIOS Address: [address] [place], [place] [id number] Business (1) When:Within 3 Day(s) [facility]04-22-2024 Evaluation + Plan noteExtracted from: Title:ED Note Author:Elliott Hicks PA-C te:06/03/23 UTI (urinary tract infection ) (N39.0: Urinary tract infection, site not specified) Orders: cephalexin, 500 mg = 1 cap(s), Oral, q6hr, X 7 day(s), # 28 cap(s), Refills(s) 0, Pharmacy: [facility], 154, cm, 06/03/23 20:33:00 EDT, Height/Length [...] Nausea/Vomiting, # 12 tab(s), Refills(s) 0, Pharmacy: [facility], 154, cm, 06/03/23 20:33:00 EDT, Height/Length Dosing, 71.8, kg, 06/03/23 20:33:00 EDT, Weight Dosing Basic Metabolic Panel Beta hCG Qual CBC w/ Auto Diff eGFR Extra Blackman Tube Extra SST Tube Hepatic Function Panel Lipase Level UA with Cult Rflx Urine Culture Future Appointments Appointment Date:06/04/2023 11:20:00 AM Scheduled Provider:Amanda BARRIOS CNP Location:[facility] Appointment Type: Open Diagnostic Tests Pending * Urine Culture 06/03/[address] [facility]03-09-2024 Hospital Discharge instructions Patient Education 04/20/2023 [...] beverage between alcoholic drinks. General instructions Take evsq-snb-vsdfeex and prescription medicines only as told by your health care provider. Do not drive after drinking any amount of alcohol. Plan for a designated home delivery driver or another way to go home. [...] the National Suicide Prevention Lifeline at or 451. This is open 24 hours a day. Text the Crisis Text Line at 651072. Summary Alcohol intoxication occurs when a person [...] provider. Document Revised: 04/16/2022 Document Reviewed: 04/16/2022 [employer] Patient Education 2022 [employer]. Follow Up Care 04/19/2023 21:58:10 With:Marie Monzon [phone] Address:Unknown When:04/22/2023 With:Amanda BARRIOS Address: [address] [place] [address] [facility] (1) When:04/22/2023 Comments:Follow-up with your primary care provider in 3 to 5 days. If symptoms worsen, do not improve, or new symptoms arise please report back to emergency department for further evaluation. [facility]03-08-2024 Evaluation + Plan noteExtracted from: Title:ED [...] Date:05/01/2023 08:20:00 AM Scheduled Provider:Amanda BARRIOS CNP Location:[facility] Appointment Type: Open [facility]11-26-2023 NoteFisher [facility] HospitalComment on above:Result Comment: Electronically Signed By: Elisa BLANK\.br\Date and Time Signed: [...] in discharge time with patient, reviewing chart, P note, neurology, collaborating MD, nursing staff, CRM, [...] SALOMÓN Singh Within 2 to [address] [address]- Additional Instructions: [facility] Additional Instructions: [facility]: [phone] Additional Instructions: [facility] [employer] [employer] [facility] [phone] Additional Instructions: Chemical Dependency: Additional Instructions: [facility] Within 2 to [address] [place] [address], [address] [place] [address]- Business (1) Additional Instructions: Alcohol Withdrawal Syndrome, Zafk-as-Nyuu Alcohol Use Disorder Alcohol Intoxication, Rike-sz-Jiro Alcohol Abuse and Nutrition Alcohol Abuse and [...] the case with the hospitalist Elisa Rodrigues NP [2] 1. Involuntary movements (R25.9: Unspecified abnormal [...] Title:Admission H & P Author:Azra HOGAN DO Date:01/05/23 1. Involuntary movements (R2 5.9: Unspecified abnormal involuntary movements) Note when patient was admitted in August that witnessed an episode when awoken lifting of her upper extremities which was transient in nature. Advised by the emergency social studies department chair that patient had seized at home but [...] I have been advised by the emergency social studies department chair that the local rehab program called get [...] and evaluated neurologically. We will ask for 7th grade social studies teacher to assist Ordered: Consult to Neurology EEG [...] had emergency department visitations both here in [place] with withdrawal symptoms and had access to [...] Cardiac Monitoring CBC w/ Auto Diff Clinical [place] Withdrawal Assessment Clinical [place] Withdrawal Assessment Clinical [place] Withdrawal Assessment Clinical [place] Withdrawal Assessment Communication Order Physician to Nursing [...] the case with the hospitalist Elisa Rodrigues BREWERY CELLAR WORKER 1. Involuntary movements (R25.9: Unspecified abnormal involuntary [...] View XR Knee Complete 4+ Views Left [facility]11-25-2023 Hospital Discharge instructions Patient Education 2023 15:26:41 Alcohol Withdrawal Syndrome, Pupa-dr-Ouff Alcohol Withdrawal Syndrome When a person who [...] away. Follow these instructions at home: Take pmqx-vbv-uoltbee and prescription medicines only as told by [...] provider. Document Revised: 12/22/2021 Document Reviewed: 12/19/2020 [employer] Patient Education 2022 [employer]. 2023 15:26:41 Alcohol Use Disorder Alcohol Use [...] facility. Counseling. This may involve motivational interviewing (DE), family therapy, or cognitive behavioral therapy (CBT). [...] physical reaction when you drink (aversion therapy). Staley help groups such as Alcoholics Anonymous (AA). These groups are led by people who have quit drinking. The groups provide emotional support, advice, and guidance. Some people with this condition benefit from a combination of treatments provided by specialized substance use treatment centers. Follow these instructions at home: Medicines Take ohji-xre-bjlveul and prescription medicines only as told by [...] department or: Call your local emergency services (930 in the [place] Call a suicide crisis helpline, such as the National Suicide Prevention Lifeline at or 546 in the [place]. This is open 24 hours a day in the [place] Text the Crisis Text Line at 155484 (in the [place] Summary Alcohol use disorder [...] provider. Document Revised: 12/22/2021 Document Reviewed: 12/17/2019 [employer]oqa Patient Education 2022 [employer]. 2023 15:26:41 Alcohol Intoxication, Seqz-yu-Wrml Alcohol Intoxication Alcohol intoxication happens when you [...] water) between your drinks. General instructions Take imgf-xbc-iuqdovp and prescription medicines only as told by your doctor. Do not drive after drinking any amount of alcohol. Plan for a designated home delivery driver or another way to go home. [...] the National Suicide Prevention Lifeline at or 644 in the [place]. This is open 24 [...] provider. Document Revised: 12/22/2021 Document Reviewed: 12/05/2021 Spoqa Patient Education 2022 [employer]. 2023 15:26:41 Alcohol Abuse and Nutrition Alcohol [...] Your health care provider or diet and field marketing specialist (dietitian) will work with you to [...] provider. Document Revised: 12/22/2021 Document Reviewed: 12/19/2020 Spoqa Patient Education 2022 [employer]. 2023 15:26:41 Alcohol Abuse and Dependence Information, [...] for Disease Control and Prevention: www.cdc.gov National [place] on Alcohol Abuse and Alcoholism: www.niaaa.nih.gov Alcoholics [...] the National Suicide Prevention Lifeline at or 997 in the [place]. This is open 24 [...] provider. Document Revised: 12/22/2021 Document Reviewed: 04/07/2019 ElseRooT Patient Education 2022 [employer]. Follow Up Care 2023 00:52:31 With:Francisco Cruz MD, [facility] Address: [address] [address] When:2 to 4 weeks With:[facility] Address:Unknown When: Unknown With:[facility]: [phone] Address:Unknown When: Unknown With:[facility] [place] [phone] Address:Unknown When: Unknown With:Chemical Dependency: Address:Unknown When: Unknown With:Diamante [place] Address: [address] [place] [address], [address] [address] Business (1) When:2 to [address] [facility]11-25-2023 NoteFisher [facility] HospitalComment on above:Result Comment: Electronically Signed By: Azra HOGAN DO\.br\Date and Time Signed: 01/05/23 08:01 [id number] Evaluation + Plan note Extracted from: Title:ED [...] Troponin 0 Hr. XR Chest Single View [facility]11-22-2023 Hospital Discharge instructions Patient Education 01/02/2023 [...] beverage between alcoholic drinks. General instructions Take meez-uva-nxswdiq and prescription medicines only as told by your health care provider. Do not drive after drinking any amount of alcohol. Plan for a designated home delivery driver or another way to go home. [...] the National Suicide Prevention Lifeline at or 513 in the [place]. This is open 24 [...] provider. Document Revised: 12/22/2021 Document Reviewed: 12/05/2021 Spoqa Patient Education 2022 [employer]. 01/02/2023 04:48:50 Palpitations Palpitations Palpitations are feelings [...] ask your health careprovider. General instructions Take rxom-hug-qrnonsg and prescription medicines only as told by [...] provider. Document Revised: 06/21/2021 Document Reviewed: 06/21/2021 Spoqa Patient Education 2022 [employer]. Follow Up Care 01/02/2023 00:36:12 With:Diamante Cleveland Address: [address] [place] [address], [address] [place] [phone] Business (1) When:Within 3 Day(s) [facility]11-04-2023 History of Present illness Narrative* Eric Najera LCSW - 12/15/2022 7:38 PM EDT EPAT - Social Work Psychiatric Assessment Arrival Details Mode of Arrival: Ambulatory Admission Source: Other (Comment) Admission Type: Involuntary ([facility]) EPAT Assessment Start Date: 12/15/22 EPAT Assessment Start Time: 1423 Name of Low Pressure Boiler Tender: FRANKLIN Smith History of Present Illness Admission Reason: Psych assessment HPI: 32yr old female with history of bipolar disorder, anxiety disorder, dually diagnosed with alcohol use dependence and opioid use disorder and h/o other substances, presenting to the ED after change of mental status apparent at [facility] ([facility]) which is a detoxification unit within [facility]. The transfer to ED was last night and initial attempt at EPAT psych assess was midnight. She was not able to participate meaningfully for it, so this psych assess was re-ordered this afternoon with enough improvement for this interview. The referral to ED from [facility] was d/t disorientation and hallucinations that were [...] She said she was with [facility]. When asked specifically about detox hx, she said [facility] 2010. She was at [facility] just a few days ago (12/10). Oriented only to self and generally to location that she's in the hospital. SW Readmission Information Readmission within 30 Days: Yes Previous ED Visit Date and Reason : 12/10 at [facility], then to [facility] until transfer for this assessment Previous Discharge [...] Psychiatric History: Chart history indicates outpatient at [facility]. Pt unable to recall any Past Psychiatric Meds/Treatments: None known per patient. The following is the only info found in chart: Has been treated at [facility]; has not taken any of her psychotropic prescriptions for several months due to weight gain; Chart only shows Filomenalar 1.5. Past Violence/Victimization History: unable to assess Current Mental Health Contacts Door Worker Name/Phone Number: unknown Door Worker Last Appointment Date: unknown Provider Name/Phone Number: [facility] Provider Last Appointment Date: November Support System: Immediate family Living Arrangement: Apartment Income Information Employment Status for: Patient Employment Status: Other (Comment) (None per pt) [employer] Service/Education History Current or Previous Service: None Education Level: (unable to assess) Social/Cultural History Social History: Q: Who is in your family? Me, my mom and 3 sisters. (Did not mention son) Q: Do youhave children? Yes, a 10 yr old. Q: Boy or girl? Boy. Where does he live? With his father in [place]. Q: When do you see him? Every [...] Calculated Risk Score: No intervention is necessary [place] Suicide Severity Rating Scale (Screener/Recent Self-Report) 1. [...] EPAT Assessment Start Time: 0020 Name of Low Pressure Boiler Tender: Emy Art [facility] History of Present Illness Admission Reason: Evaluation HPI: 32yr old female with history of mood disorder, anxiety, alcohol use disorder, and Opioid Use Disorder presenting to the ED after change of mental status apparent at [facility] which [facility] a [facility] unit [facility] [...] terrible historian reporting she has been at [facility] for the last 9 months . She was actuallyadmitted there on 12/12. She is not reporting thoughts of harming herself or others. SW Readmission Information Readmission within 30 Days: Yes Previous ED Visit Date and Reason : 12/10 at [facility] Previous Discharge Date and Location: 12/10 [...] to assess: Chart history indicates outpatient at [facility] Past Psychiatric Meds/Treatments: per chart stopped medications except for Vraylar 1.5 several months ago due to weight gain Past Violence/Victimization History: unable to assess Current Mental Health Contacts Door Worker Name/Phone Number: unknown Door Worker Last Appointment Date: unknown Provider Name/Phone Number: [facility] Provider Last Appointment Date: November Support System: Immediate family Living Arrangement: House Income Information Employment Status for: Patient Employment Status: Other (Comment) (unable to assess) [employer] Service/Education History Current or Previous Service: None Education Level: (unable to assess) Social/Cultural History Social History: living in [place] with mother and 10yr old son Important [...] now?: No Calculated Risk Score: Potential Risk [place] Suicide Severity Rating Scale (Screener/Recent Self-Report) 1. [...] had been sent to [facility] for detox on 12/12.[facility] nursing [...] is wandering around asking the Tele- [employer] business analytics manager to help her find her son [...] received Lyle Bailey in signout from Dr. Steele. Please see the previous ED provider note forall HPI, PE and MDM up to the time of signout at 0100. This is in addition to the primary record. In brief Lyle Bailey is an 32 y.o. female presenting for Chief Complaint Patient presents with Psychiatric Evaluation Pt is [place] and is going through alcohol withdrawal, pt states she has been seeing people who are not there. Pt is also having some anxiety. Pt states she's had seizures before when she goes through [facility] At the time of signout we were awaiting: EPAT evaluation. ED Course as of 12/16/22247 Fri Dec 14, 2022 2244 Comprehensive Metabolic [...] [SP] Jessica Mcdowell DO Diagnoses as of 12/16/22247 Alcohol withdrawal syndrome with complication (CMS/HCC) Bipolar [...] is an 32 y.o. female presenting for [facility] Chief Complaint Patient presents with Psychiatric Evaluation Pt is from [place] and is going through alcohol withdrawal, pt [...] or schizoaffective type with some psychotic features. [place] slip was placed to prevent the patient [...] presents with Psychiatric Evaluation Pt is from [place] and is going through alcohol withdrawal, pt states she has been seeing people who are not there. Pt is also having some anxiety. Pt states she's had seizures before when she goes through [facility] At the time of signout we were awaiting: ED Course as of 12/15/22 1910 Fri Dec 14, 2022 2244 Comprehensive Metabolic [...] Index [AH] Amy Steele MD [SP] Jessica McdowellDO Diagnoses as of 12/15/22 1910 Alcohol withdrawal [...] presents with Psychiatric Evaluation Pt is from [place] and is going through alcohol withdrawal, pt states she has been seeing people who are not there. Pt is also having some anxiety. Pt states she's had seizures before when she goes through [facility] At the time of signout we were awaiting: EPAT to place the patient. ED Course as of 12/16/22 025SatDec 14, 20222243 Comprehensive Metabolic Panel(!) Reviewed and [...] Jessica Mcdowell DO Diagnoses as of 12/16/22 0251 Alcohol withdrawal syndrome with complication (CMS/HCC) Bipolar [...] received Lyle Bailey in signout from Dr. Handy. Please see the previous ED provider note for all HPI, PE and MDM up to the time of signout at 1700. This is in addition to the primary record. In brief Lyle Bailey is an 32 y.o. female presenting for Chief Complaint Patient presents with Psychiatric Evaluation Pt is from [place] and is going through alcohol withdrawal, pt [...] Acute Toxicology Panel, Blood Acute tox negative [] Sat Dec 15, 2022 0659 There was [...] Bipolar affective disorder, currently manic, moderate (CMS/HCC) [facility] Final diagnoses: [F10.939] Alcohol withdrawal syndrome with complication (CMS/HCC) [F31.12] Bipolar affective disorder, currently manic, moderate (CMS/HCC) Patient was pending transfer. She has now been accepted to [facility] and will be transferred there for further psychiatric work-up. Procedure Procedures Rosa Elena Howe MD documented in this [facility] Work Phone: 1(609) 945-284111-03-2023 Miscellaneous Notes* Significant Event - John Tobias [...] of a correctional facility, provided that the oommom-cgs-opbfu period shall be extended by the length of any hospitalization or incarceration of the person thatoccurred within the dhhkjm-xml-jjwja period. (ii) Within the forty-eight months prior to the filing of an affidavit seeking court-ordered treatment of the person under section 5122.111 of the Revised Code, the lack of compliance resulted in oneor more acts of serious violent behavior toward self or others or threats of, or attempts at, serious physical harm to self or others, provided that the ayicc-uqzqr-zazhj period shall be extended by the length of any hospitalization or incarceration of the person that occurred within the jrhzg-vpzvu-ofwwx period. (c) The person, as a result [...] physician, licensed clinical psychologist, health or police chief deputy, or deputy assessor. (Statement shall include the circumstances under which [...] the emergency department for psychiatric evaluation from [facility]. She wasbeing treated for alcohol withdrawal. On my evaluation she appears tired, agitated, she is pacing, she is unable to carry on a linear and coherent conversation. She appears internally stimulated. 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 John Tobias MD 12/15/[address]22 [address] of Employment: [facility] STATEMENT OF OBSERVATION BY PSYCHIATRIST, LICENSED PHYSICIAN, OR LICENSED CLINICAL PSYCHOLOGIST, IFAPPLICABLE Place of Observation (e.g., [facility], [facility], office, emergency facility) (If applicable, [...] of a correctional facility, provided that the jqrmhf-nno-bbewu period shall be extended by the length of any hospitalization or incarceration of the person thatoccurred within the rmoahq-nae-elrte period. (ii) Within the forty-eight months prior to the filing of an affidavit seeking court-ordered treatment of the person under section 5122.111 of the Revised Code, the lack of compliance resulted in oneor more acts of serious violent behavior toward self or others or threats of, or attempts at, serious physical harm to self or others, provided that the vzxew-lbzwh-vuyzp period shall be extended by the length of any hospitalization or incarceration of the person that occurred within the ntqgm-dnpey-hbzdc period. (c) The person, as a result [...] physician, licensed clinical psychologist, health or police chief deputy, medical case manager or deputy assessor. (Statement shall include the circumstances under which [...] the emergency department for psychiatric evaluation from [facility]. She wasbeing treated for alcohol withdrawal. On my evaluation she appears tired, agitated, she is pacing, she is unable to carry on a linear and coherent conversation. She appears internally stimulated. 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 Rosa Elena Howe MD 12/16/[address]22 [address] of Employment: [facility] STATEMENT OF OBSERVATION BY PSYCHIATRIST, LICENSED PHYSICIAN, OR LICENSED CLINICAL PSYCHOLOGIST, IFAPPLICABLE Place of Observation (e.g., [facility], [facility], office, emergency facility) (If applicable, please complete) Rosa Elena Howe MD 12/16/2022 documented in this [facility] Work Phone: 1(316) 302-867011-03-2023 Note* Significant Event - John Tobias MD [...] of a correctional facility, provided that the fixxig-ykj-uvrcm period shall be extended by the length of any hospitalization or incarceration of the person thatoccurred within the kqjwzr-qpw-aqipd period. (ii) Within the forty-eight months prior to the filing of an affidavit seeking court-ordered treatment of the person under section 5122.111 of the Revised Code, the lack of compliance resulted in oneor more acts of serious violent behavior toward self or others or threats of, or attempts at, serious physical harm to self or others, provided that the tpglr-jhxgy-pnepm period shall be extended by the length of any hospitalization or incarceration of the person that occurred within the lucpp-msxbo-kjiej period. (c) The person, as a result [...] physician, licensed clinical psychologist, health or police chief deputy, medical case manager or deputy assessor. (Statement shall include the circumstances under which [...] the emergency department for psychiatric evaluation from [facility]. She wasbeing treated for alcohol withdrawal. On my evaluation she appears tired, agitated, she is pacing, she is unable to carry on a linear and coherent conversation. She appears internally stimulated. 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 John Tobias MD 12/15/2022 [address] of Employment: [facility] STATEMENT OF OBSERVATION BY PSYCHIATRIST, LICENSED PHYSICIAN, OR LICENSED CLINICAL PSYCHOLOGIST, IFAPPLICABLE Place of Observation (e.g., [facility], [facility], office, emergency facility) (If applicable, please complete) John Tobias MD 12/15/2022 [facility] Work Phone: 1(553) 305-591711-03-2023 Note* Significant Event - Rosa Elena Howe [...] of a correctional facility, provided that the qblvwm-bwh-mumlv period shall be extended by the length of any hospitalization or incarceration of the person thatoccurred within the jselmd-ghs-tccfx period. (ii) Within the forty-eight months prior to the filing of an affidavit seeking court-ordered treatment of the person under section 5122.111 of the Revised Code, the lack of compliance resulted in oneor more acts of serious violent behavior toward self or others or threats of, or attempts at, serious physical harm to self or others, provided that the mgglm-naiph-pyuea period shall be extended by the length of any hospitalization or incarceration of the person that occurred within the leidt-hvseh-rryvn period. (c) The person, as a result [...] physician, licensed clinical psychologist, health or police chief deputy, medical case manager or deputy assessor. (Statement shall include the circumstances under which [...] the emergency department for psychiatric evaluation from [facility]. She wasbeing treated for alcohol withdrawal. On my evaluation she appears tired, agitated, she is pacing, she is unable to carry on a linear and coherent conversation. She appears internally stimulated. 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 Rosa Elena Howe MD 12/16/2022 Place of Employment: [facility] STATEMENT OF OBSERVATION BY PSYCHIATRIST, LICENSED PHYSICIAN, OR LICENSED CLINICAL PSYCHOLOGIST, IFAPPLICABLE Place of Observation (e.g., [facility], general hospital, office, emergency facility) (If applicable, please complete) Rosa Elena Howe MD 12/16/2022 [facility] Work Phone: [phone] Hospital Discharge instructions Patient Education 12/10/2022 21:57:34 [...] beverage between alcoholic drinks. General instructions Take zguk-gpz-uqqqkqz and prescription medicines only as told by your health care provider. Do not drive after drinking any amount of alcohol. Plan for a designated home delivery driver or another way to go home. [...] the National Suicide Prevention Lifeline at or 557 in the U.S. This is open 24 [...] provider. Document Revised: 12/22/2021 Document Reviewed: 12/05/2021 Spoqa Patient Education 2022 [employer]. Follow Up Care 12/10/2022 17:22:08 With:[facility] Address:Unknown When:12/13/2022 21:39:40 With:Diamante Cleveland Address: [address] [place] [address], [address] [place] [address] Business (1) When:Within 3 Day(s) [facility]10-30-2023 Evaluation + Plan noteExtracted from: Title:ED Note Author:Eric Forbes DO Date: Alcohol withdrawal (F10.939: Alcohol use, unspecified with withdrawal, unspecified) Ordered: lorazepam, 1 mg = 1 tab(s), Oral, q8hr, Take one by mouth every eight hours as needed, X 4 day(s), # 12 tab(s), Refills(s) 0, Pharmacy: [facility], 157, cm, 12/10/22 8:08:00 EDT, Height/Length [...] nausea, # 10 tab(s), Refills(s) 0, Pharmacy: [facility], 157, cm, 12/10/22 8:08:00 EDT, Height/Length [...] With Cult Reflex XR Chest Single View [facility]10-30-2023 Evaluation + Plan noteExtracted from: Title:ED Note Author:Fabricio Gao PA-C te:12/10/22 1. Alcohol intoxication (F10 .929: Alcohol use, unspecified with intoxication, unspecified) Orders: lorazepam, 2 mg = 2 tab(s), Tab, Oral, Once, Stop date 12/10/22 17:27:00 EDT, STAT, Start date 12/10/22 17:27:00 EDT, 12/10/22 17:27:00 EDT Ethanol Level [facility]10-30-2023 Hospital Discharge instructions Patient Education 12/10/2022 [...] groups. Follow these instructions at home: Take ydgc-pzr-fihqfgr and prescription medicines (including vitamin supplements) only [...] provider. Document Revised: 12/22/2021 Document Reviewed: 12/19/2020 [employer] Patient Education 2022 [employer]. Follow Up Care 12/10/2022 07:57:33 With:[facility] Address:Unknown When:12/13/2022 11:42:52 With:Diamante Cleveland Address: [address] [place] [address], [place] [id number] [facility] (1) When:Within 3 Day(s) [facility]10-20-2023 Hospital Discharge instructions Patient Education 11/30/2022 [...] numbers. This can be done either in Mongolian (U.S.) or metric measurements. Note that charts and online BMI calculators are available to help you find your BMI quickly and easily without having to do these calculations yourself. To calculate your BMI in Mongolian (U.S.) measurements: 1.Measure your weight in pounds [...] Centers for Disease Control and Prevention: www.cdc.gov [place] Heart Association: www.heart.org National Heart, Lung, and Blood [place]: www.nhlbi.nih.gov Summary Body mass index (BMI) is a number that is calculated from a person's weight and height. BMI may help estimate how much of a person's weight is composed of fat. BMI can help identify thosewho may be at higher risk for certain medical problems. BMI can be measured using Mongolian measurements or metric measurements. BMI charts are used to identify whether you are underweight, normal weight, overweight, or obese. This information is not intended to replace advice given to you by your health care provider. Make sure you discuss any questions you have with your health care provider. Document Revised: 10/21/2019 Document Reviewed: 08/28/2019 Spoqa Patient Education 2022 [employer]. 11/30/2022 14:00:38 Dysuria Dysuria Dysuria is pain [...] Follow these instructions at home: Medicines Take nuer-apt-jivmonv and prescription medicines only as told by [...] provider. Document Revised: 09/09/2020 Document Reviewed: 09/09/2020 Spoqa Patient Education 2022 [employer]. 11/30/2022 14:00:37 Safe Sex Safe Sex Practicing [...] STI. Follow these instructions at home: Take zbca-vhk-vxjctft and prescription medicines only as told by [...] provider. Document Revised: 07/04/2020 Document Reviewed: 07/04/2020 Spoqa Patient Education 2022 [employer]. Follow Up Care 11/30/2022 13:08:52 With:Diamante Cleveland CNP Address: [address] [place] [address], [address] [place] [address]- When: Unknown [facility] [id number] Evaluation + Plan note Diagnostic Tests Pending * Chlamydia/Gonococcus, MOISES 11/30/22 * Urine Culture 11/30/[address] [facility]10-03-2023 Evaluation + Plan note Diagnostic Tests Pending * Estradiol Level 11/13/22 * Testosterone F&T 11/13/22 * HIV Screen 4th Generation wRfx 11/13/22 * Hepatitis B Surface Antigen 11/13/22 * RPR with Conf Rfx 11/13/22 * FSH Level 11/13/22 * DHEAS 11/13/[address] [facility]10-03-2023 Evaluation + Plan note Diagnostic Tests Pending * Thyroid Perox.tpo Ab 11/13/[address] [facility]09-24-2023 Hospital Discharge instructions Patient Education 11/04/2022 [...] health careprovider. Avoid caffeine, alcohol, and certain fynr-ton-gafrjhx cold medicines. These may make you feel worse. Ask your pharmacist which medicines to avoid. General instructions Take uubj-zog-tdliywt and prescription medicines only as told by [...] Depression Association of [place] (ADAA): www.adaa.org National Newell on Mental Illness (SHEY): www.shey.org Contact a [...] department or: Call your local emergency services (079 in the U.S.). Call a suicide crisis helpline, such as the National Suicide Prevention Lifeline at or 261 in the U.S. This is open 24 hours a day in the U.S. Text the Crisis Text Line at 878927 (in the U.S.). Summary Taking steps to [...] provider. Document Revised: 08/23/2021 Document Reviewed: 05/21/2021 Spoqa Patient Education 2022 [employer]. Follow Up Care 11/04/2022 12:21:25 With:[facility] Address:Unknown When:11/07/2022 15:59:09 With:Diamante Cleveland Address: [address] [place] [address], [address] [place] [id number] [facility] (1) When:11/07/2022 15:58:15 Comments:Make sure to follow-up with your primary doctor for blood pressure check as well to make sure you are not developing hypertension. Follow-up with [facility] health. Return to the emergency room if your symptoms recur or any new symptoms. [facility]09-24-2023 Evaluation + Plan noteExtracted from: Title:ED Note Author:Parveen Buckner, Gladys Garrett te:11/04/22 1. Anxiety (F41.9: Anxiety d isorder, unspecified) Orders: hydrOXYzine, 50 mg = 1 mL, Injection, IntraMuscular, Once, Stop date 11/04/22 12:35:00 EDT, STAT, Start date 11/04/22 12:35:00 EDT, 11/04/22 12:35:00 EDT hydrOXYzine, 1-2 cap(s), Oral, QID, PRN as needed for anxiety, # 30 cap(s), Refills(s) 0, Pharmacy: [facility], 158, cm, 11/04/22 12:27:00 EDT, Height/Length Dosing, 74.7, kg, 11/04/22 12:27:00 EDT, Weight Dosing lorazepam, 1 mg = 1 tab(s), Tab, Oral, Once, Stop date 11/04/22 13:36:00 EDT, STAT, Start date 11/04/22 13:36:00 EDT, 11/04/22 13:36:00 EDT Automated Diff Basic Metabolic Panel CBC w/ Auto Diff eGFR [facility]07-18-2023 Hospital Discharge instructions Follow Up Care 08/28/2022 09:06:34 With:Lorie Morocho MD, [facility], [facility] Address: [address] [place], [place] [id number]- [phone] When: only if needed [facility] 07-08-2023 Evaluation + [...] SALOMÓN Singh Within 2 to 4 weeks [address] [place] [address]- Additional Instructions: Illegal Drug Use Information, Adult Toxic Metabolic Encephalopathy Addendum by Matthias SINGLETARY Kam E. on August 18, 2022 09:11:10 EDT Patient [...] benzodiazepines which I believe is the primary home delivery driver of above. We will continue as [...] assessment and plan. Extracted from: Title:ED Note Author:Megan Darren AGUILARCharisma Date :08/16/22 Active substance abuse (F19. 10: [...] After 24 Hours Restraint Initiate Non-Violent / Fgx-Zxuw-Mrmmjaeoqvk Behavior Restraint Monitoring Non-Violent / Non-Self- Destructive Behavior Restraint Progress Note Routine Capillary Glucose POC Salicylate Level Saline Lock Insert Straight Cath Troponin 0 Hr. UA With Cult Reflex XR Chest Single View Future Appointments Appointment Date:10/17/2022 09:20:00 AM Scheduled Provider:Amanda BARRIOS CNP Location:[facility] Appointment Type:[facility]07-08-2023 NoteFishKennedy Krieger InstituteComment on above:Result Comment: Electronically Signed By: Matthias SINGLETARY, Kam Medrano\.br\Date and Time Signed: 08/18/22 09:11 [id number] Hospital Discharge instructions Patient Education 08/18/2022 08:40:12 [...] values. ?Lying and crime, such as stealing. Fpc or shelter. This can affect your ability to find [...] Substance Abuse and Mental Health Services Administration (SAMHSA): ?Treatment finder: https://www.samhsa.gov/find-help ?National helpline: 7-971-158-HELP (0371) Contact a health care provider if: You [...] department or: Call your local emergency services (631 in the U.S.). Call a suicide crisis helpline, such as the National Suicide Prevention Lifeline at or 887 in the U.S. This is open 24 hours a day in the U.S. Text the Crisis Text Line at 372242 (in the U.S.). Summary Illegal drugs are [...] provider. Document Revised: 08/23/2021 Document Reviewed: 05/26/2021 Spoqa Patient Education 2022 [employer]. 08/18/2022 08:40:02 Toxic Metabolic Encephalopathy Toxic Metabolic [...] elderly, have dementia, or live in a halfway. Are not getting enough fluids. Have poor [...] Follow these instructions at home: Medicines Take hvwc-ebe-shzhdmf and prescription medicines only as told by your health care provider. Do not start taking any new medicines, including lltc-hol-vboidlj medicines, without first checkingwith your health care [...] provider. Document Revised: 11/15/2020 Document Reviewed: 11/15/2020 Spoqa Patient Education 2022 [employer]. Follow Up Care 08/16/2022 23:31:02 With:Anthony SINGLETARY, SALOMÓN Singh Address: [address] [place] [address]- When:2 to [address] [facility]07-07-2023 NoteFisher [facility] HospitalComment on above:Result Comment: Electronically Signed By: Matthias SINGLETARY, Kam Medrano\.br\Date and Time Signed: 08/17/22 11:48 [id number] Hospital Discharge instructions Follow Up Care 07/17/2022 11:17:20 With:Amanda BARRIOS CNP Address: [address] [place] [address]- When:Within 2 Month(s) [facility] 04-30-2023 Discharge summary Author Gautam arteaga [facility] June 10, 2022 7:53am Note Date/Time June 10, 2022 7:5 2am [facility] [address] [place] [address] Discharge Summary Signed Patient: Lyle Bailey MR#: [id number] : 1990 Acct:[id number] Age/Sex: 32 / F Adm Date: 3 Loc: 1S Room: [address] [place] [address]: Nguyễn Burrows MD Copies to: MD Amanda Escamilla APRN, CNP~ Providers Date of Discharge: 06/10/22 Discharging Provider: [...] tablet by mouth once daily Follow Up: [facility] Counseling Hotline [Outside] [facility] [Outside] Amanda Barrios APRN, BREWERY CELLAR WORKER-C [Primary Care Provider] - (Please schedule an appt with your primary provider for any medical needs. ) Documented By: Gautam Burrows MD 3 0749 Signed By: <Electronically signed by Gautam Burrows MD> 06/10/22 0752 [facility] Work Phone: 1(634) 136-291704-29-2023 Progress note Author Gautam arteaga [facility] June 09, 2022 7:51am Note Date/Time June 09, 2022 7:5 1am [facility] [address] [place] [address] Psychiatry Progress Note Signed Patient: Lyle Bailey MR#: [id number] : 1990 Acct:[id number] Age/Sex: 32 / F Adm Date: 3 Loc: 1S Room: [address] [place] [address] Type : ADM IN Attending Dr: Nguyễn [...] signed by Gautam Burrows MD> 06/09/22 0751 [facility] Work Phone: [phone]) 114-965304-28-2023 History and physical note Author Gautam arteaga [facility] June 08, 2022 9:58am Note Date/Time June 08, 2022 9:5 6am [facility] [address] [place] [address] Psychiatry H&P Signed Patient: Lyle Bailey MR#: [id number] : 1990 Acct:[id number] Age/Sex: 32 / F Adm Date: 3 Loc: Room: [address] [place] [address] Type: ADM IN Attending Dr: Nguyễn Burrows [...] and has 1 son. Pt recently here pw2Xuegl Meds Medications and Allergies Allergies codeine Allergy [...] Appearance Clear Urine pH 5.5 Ur Specific [place] 1.032 H Urine Protein 30 H Urine [...] signed by Gautam Burrows MD> 06/08/22 0958 [facility] Work Phone: [phone]) 877-216403-14-2023 Evaluation note* Encounter Date Diagnosis Assessment Notes [...] hepatic coma, unspecified chronicity (ICD-10 - B19.11) [employer] Other 01-31-2023 Hospital Discharge instructions* Discharge Instructions* Leandro Rojas MD - 03/13/2022 1:22 PM EST You were seen in the emergency department for evaluation by [facility]. EKG was normal. Your vitalsigns were stable. [...] going through withdrawal. documented in this encounter[facility]ON [facility] Phone: 1(322) 282-693408-09-2022 Hospital Discharge instructions Patient Education 09/19/2021 10:35:36 Steps to Quit Smoking, Uyqt-pr-Dxmy Steps to Quit Smoking Smoking tobacco is [...] a prescription, and some you can buy iirz-hgd-ytbdzvq. Some medicines may contain a drug called [...] and encourage you. Call a phone quitline (1-236-JFCTNOW), reach out to support groups, or work [...] 11/24/2009 Document Revised: 04/17/2019 Document Reviewed: 04/18/2019 Spoqa Patient Education 2020 [employer] Inc. 09/19/2021 10:35:35 Obesity, Adult, Yvrp-dm-Bbhd Obesity, Adult Obesity is having too much [...] food choices, such as grocery stores and [employer]. What are the signs or symptoms? The [...] eat. ?How much exercise you get. Take lsmj-owl-uaetzdt and prescription medicines only as told by [...] 04/21/2012 Document Revised: 10/02/2018 Document Reviewed: 10/02/2018 Spoqa Patient Education 2019 [employer]. [facility] 06-16-2022 Hospital Discharge instructions Patient Education 07/26/2021 22:07:43 Hepatitis C, Zqkq-kv-Vviz Hepatitis C Hepatitis C is a liver [...] Follow these instructions at home: Medicines Take cglc-umm-icdyhsx and prescription medicines only as told by your doctor. Take your antiviral medicine as told by your doctor. Do not stop taking the antiviral medicine evenif you start to feel better. Do not take any new medicines unless your doctor says that this is okay. This includes plty-rei-oeveieh medicines and control pills. Activity Rest when [...] not have soap and water, use hand shaft tender. Do not share needles or syringes. Practice safe sex and use condoms. Do not handle blood or body fluids without gloves or other protection. Avoid getting tattoos or piercings in places that are not clean. General instructions Do not share toothbrushes, nail clippers, or razors. Wash your hands often with soap and water. If you do not have soap and water, use hand shaft tender. Cover any cuts or open sores on [...] 01/10/2009 Document Revised: 01/10/2018 Document Reviewed: 03/05/2017 Spoqa Patient Education 2020 [employer]. 07/26/2021 22:07:43 Constipation, Adult Constipation, Adult Constipation [...] in fiber, or overly processed, such as albanian fries, hamburgers, cookies, candies, and soda. Drink enough fluid to keep your urine clear or pale yellow. General instructions Exercise regularly or as told by your health care provider. Go to the restroom when you have the urge to go. Do not hold it in. Take peeq-qyc-yhpwcsm and prescription medicines only as told by [...] 10/26/2004 Document Revised: 01/10/2018 Document Reviewed: 07/18/2016 Spoqa Patient Education 2020 [employer]. 07/26/2021 22:07:43 Abdominal Pain, Adult Abdominal Pain, [...] Follow these instructions at home: Medicines Take qwcx-hpc-vivehdk and prescription medicines only as told by [...] Watch your condition for any changes. Take ljax-pqk-flessly and prescription medicines only as told by [...] 11/07/2005 Document Revised: 06/08/2019 Document Reviewed: 06/08/2019 Spoqa Patient Education 2019 [employer]. Follow Up Care 07/26/2021 18:02:56 With:Amanda BARRIOS Address: [address] [place], [place] [id number] [facility] (1) When:07/29/2021 21:42:35 Comments:Follow-up with your primary care provider in 3 to 5 days. If symptoms worsen, do not improve, new symptoms arise please report back to emergency department immediately. Take MiraLAX daily to help promote a normal bowel movement. [facility]05-24-2022 Hospital Discharge instructions Patient Education 07/04/2021 15:44:46 Steps to Quit Smoking, Qrez-jv-Yfia Steps to Quit Smoking Smoking tobacco is [...] a prescription, and some you can buy gufp-tgh-bltrszm. Some medicines may contain a drug called [...] as websites. Examples include QuitGuide from the [facility] and smokefree.gov What things can I do to make it easier to quit? Talk to your family and friends. Ask them to support and encourage you. Call a phone quitline (), reach out to support groups, or work [...] 11/24/2009 Document Revised: 04/17/2019 Document Reviewed: 04/18/2019 Spoqa Patient Education 2020 [employer]. 07/04/2021 15:44:45 Obesity, Adult, Ntta-jg-Elxo Obesity, Adult Obesity is having too much [...] food choices, such as grocery stores and [employer]. What are the signs or symptoms? The [...] eat. ?How much exercise you get. Take nryd-vze-ahglnzi and prescription medicines only as told by [...] 04/21/2012 Document Revised: 10/02/2018 Document Reviewed: 10/02/2018 Spoqa Patient Education 2020 [employer]. Follow Up Care 06/19/2021 13:30:22 With:Amanda BARRIOS CNP Address: [address] [place] [address]- When:Within 6 Month(s) [facility] 12-27-2021 NoteAdmission Information Patient: Lyle Bailey : 1990 Date of Admission: 02/05/2021 16:34:16 Date of Discharge: 02/06/2021 Code Status: Full Resuscitation PCP: Consult: Follow Up with Provider: With: Address: When: [facility] [address] [place] [address] [place] [address] 02/14/2021 09:45:00 Comments: Counseling Appointment with Nora [...] signed by Deacon Arnold MD 02/06/21 15:24 [facility]12-26-2021 Note Chief Complaint Alcohol intoxication, [...] the facility. She has never been admitted [facility]. She does live in [place], [place]. At time of evaluation, there is [...] DTs, seizures Disposition Health Care Power of Driver Service Technician or next of kin: Manisha Bailey, Family [...] Push, q15min, [place] (more content not included)... [facility] Gautam arteaga [facility] June 10, 2022 7:53am Note Date/Time June 10, 2022 7:5 2am [facility] [address] [place] [address] Discharge Summary Signed Patient: Lyle Bailey MR#: [id number] : 1990 Acct:[id number] Age/Sex: 32 / F Adm Date: 3 Loc: Room: [address] [place] [address]: Nguyễn Burrows MD Copies to: MD Amanda Escamilla RESEARCH KENNEL SUPERVISOR, COMMISSIONER CONSERVATION OF RESOURCES~ Providers Date of Discharge: 06/10/22 Discharging Provider: [...] tablet by mouth once daily Follow Up: [facility] [Outside] [facility] [Outside] Amanda Barrios APRN, GIANCARLO-C [Primary Care Provider] - (Please schedule an appt with your primary provider for any medical needs. ) Documented By: Gautam Burrows MD 3 0749 Signed By: <Electronically signed by Gautam Burrows MD> 06/10/22 0753 [facility] Work Phone: Evaluation + Plan note Future Appointments Appointment Date:12/27/2021 03:00:00 PM Scheduled Provider:Amanda BARRIOS CNP Location:[facility] Appointment Type:[facility] Evaluation + Plan note Future Appointments Appointment Date:12/27/2021 03:00:00 PM Scheduled Provider:Amanda BARRIOS CNP Location:[facility] Appointment Type: Open Diagnostic Tests Pending * CBC w/ Auto Diff 07/04/21 * TSH With T4fr Reflex [facility]/04/[address] [facility] [address] [facility] Future Appointments Appointment Date:04/26/2022 01:40:00 PM Scheduled Provider:Amanda BARRIOS CNP Location:[facility] Appointment Type:[facility] Evaluation + Plan note Future Appointments Appointment Date:10/17/2022 09:20:00 AM Scheduled Provider:Amanda BARRIOS CNP Location:[facility] Appointment Type:[facility] Evaluation + Plan note Future Appointments Appointment Date:10/17/2022 09:20:00 AM Scheduled Provider:Amanda BARRIOS CNP Location:[facility] Appointment Type: Open Diagnostic Tests Pending * Throat Culture 08/28/[address] [facility] Future Appointments Appointment Date:06/20/2023 01:20:00 PM Scheduled Provider:Amanda BARRIOS CNP Location:[facility] Appointment Type: ER/Hospital Follow Up [facility] Evaluation + Plan note Future Appointments Appointment Date:06/20/2023 01:20:00 PM Scheduled Provider:Amanda BARRIOS CNP Location:[facility] Appointment Type: ER/Hospital Follow Up Diagnostic Tests Pending * Chlam/GC/Trich,MOISES 06/17/23 * Vaginitis/Vaginosis, DNA Probe 06/17/23 * Urine Culture 06/17/[address] [facility] Future Appointments Appointment Date:08/21/2023 08:20:00 AM Scheduled Provider:Amanda BARRIOS CNP Location:[facility] Appointment Type: Open [facility]* Diagnosis Alcohol withdrawal syndrome with complication (HCC)- Primary documented in this encounter [employer] Work Phone: evaluation note* Diagnosis Temporary high blood pressure- Primary Elevated blood pressure reading without diagnosis of hypertension documented in this encounter [employer] Work Phone: evaluation noteNo assessment information available [facility] Work Phone: evaluation note* Diagnosis Acute alcoholic intoxication with complication (HCC)- Primary documented in this encounter [employer] Work Phone: evaluation note* Diagnosis Encounter for psychological evaluation- Primary documented in this encounter [employer] Phone: evaluation note* Diagnosis Onset Date Resolution Status Alcohol abuse acute Altered mental status acute Suicidal ideation acute [facility] Work Phone: Evaluation note* Diagnosis Onset Date Resolution Status Alcohol abuse acute Altered mental status acute Anxiety acute Depression acute Hep C w/o coma, chronic acut e Suicidal ideation acute [facility] Work Phone: evaluation note* Diagnosis Alcohol withdrawal syndrome with complication (CMS/HCC)- Primary Bipolar affective disorder, currently manic, moderate (CMS/HCC) Bipolar I disorder, most recent episode (or current) manic, moderate documented in this encounter [facility] Work Phone: Evaluation note* Diagnosis Onset Date Resolution Status Acute psychosis acute [facility] Work Phone: History and physical note Author [facility] June 08, 2022 9:58am Note Date/Time June 08, 2022 9:5 6am [facility] [address] [place] [address] Psychiatry H&P Signed Patient: Lyle Bailey MR#: [id number] : 1990 Acct:[id number] Age/Sex: 32 / F Adm Date: 3 Loc: Room: [address] [place] [address] Type: ADM IN Attending Dr: Nguyễn Burrows MD Copies to: MD Amanda Escamilla APRN, COMMISSIONER [employer]~ Date of Service: 06/08/2022 HPI History of [...] and has 1 son. Pt recently here [id number] Meds Medications and Allergies Allergies codeine Allergy [...] Appearance Clear Urine pH 5.5 Ur Specific [place] 1.032 H Urine Protein 30 H Urine [...] signed by Gautam Burrows MD> 06/08/22 0958 [facility] Work Phone: History general Narrative - Reported* Type Description Date Medical History HX OF HEROIN ABUSE Medical History manic depression Medical History bipolar Medical History anxiety Surgical History No know Surgical history Hospitalization History CHILD X'S 1 [employer] Other Hospital course Narrative No data available for this section [facility] Hospital Discharge instructions* Instructions* Fredy Kay, DO - 05/03/2021 Call today or tomorrow for a follow up with [facility] for alcohol detoxification or follow up with No primary care provider on file.. Stop drinking alcohol. Call [facility] [phone] or go to [facility] at 7am [...] Care Everywhere. * Alcohol Detoxification and Withdrawal (Mongolian) documented in this [facility] Work Phone: Hospital Discharge instructions No data available for this section [facility] Additional Instructions Follow-up with outpatient detox [facility] if symptoms are worse[facility] Work Phone: Hospital Discharge instructions Additional Instructions Follow-up with mental health Return to the ED if you develop worsening symptoms or concernsOhio[facility] Work Phone: Hospital Discharge instructions* Attachments The following attachments cannot be sent through Care Everywhere. * Alcohol Intoxication: Acute (Mongolian) [facility] Work Phone: Hospital Discharge instructions Additional Instructions Follow-up with your primary care doctor Return to ED if develop worsening symptoms or concernsOhio[facility] Work Phone: Hospital Discharge instructions Additional Instructions Do not use drugs or alcoholOhio[facility] Work Phone: Hospital Discharge instructions Additional Instructions If your symptoms return/worsen or you develop any further concerns or symptoms please see your doctor or return to the emergency department immediately.[facility] Work Phone: Hospital Discharge instructions Additional Instructions Regular Diet No Activity RestrictionsOhio[facility] Work Phone: Hospital Discharge instructions Additional Instructions Follow-up with your primary care doctor Return to ED for develop worsening symptoms or concernsOhio[facility] Work Phone: Hospital Discharge instructions Additional Instructions Patient is medically stable for detox at this time. Please go directly to detox. Please follow close with your primary care doctor. Please return to the emergency department if you develop any worsening or concerning symptoms. Please use the nausea medicine as needed. [facility] Work Phone: Progress note No data available for this section [facility] Author [facility] June 09, 2022 7:51am Note Date/Time June 09, 2022 7:5 1am [facility] [address] [place] [address] Psychiatry Progress Note Signed Patient: Lyle Bailey MR#: [id number] : 1990 Acct:[id number] Age/Sex: 32 / F Adm Date: 04/27/2 3 Loc: 1S Room: 0L2980-6 Type : ADM IN Attending Dr: Nguyễn [...] signed by Gautam Burrows MD> 06/09/22 0751 [facility] Work Phone: Reason for referral (narrative) Referred by: Amanda [facility]RIOS [facility] [place] [place] Summary Purpose Family History Grandmother Name Dates [...] Unknown father Unknown Hypertension Unknown Advance Directives Documents on File Type Date Recorded Patient Rn Care Transition Expl anation Advance Directives and Living Will Power of Driver Service Technician Documents on File Type Date Recorded Patient Rn Care Transition Expl anation ACP-Advance Directive ACP-Power of Driver Service Technician Advance Directive Response Recorded Date/ Time Advance Directives No December 10:11am Advance Directive Response Recorded Date/ Time Advance Directives No December 11:11am Discharge Instructions * Instructions* Mundo Guzman MD - 11/01/2018 Venous Doppler is scheduled for Saturday. Go to scheduled appointment. Take Xarelto as prescribed. * Attachments The following attachments cannot be sent through Care Everywhere. * DVT (Deep Vein Thrombosis) (Mongolian) documented in this encounter* Attachments The following attachments cannot be sent through Care Everywhere. * Panic Attacks (Mongolian) documented in this encounter* Instructions* Crescencio Emanuel MD - 03/11/2020 MEDICATIONS PRESCRIBED. RETURN FOR NEW OR WORSENING SYMPTOMS, THOUGHTS OR WANTING TO HURT SELF/ OTHERS. * Attachments The following attachments cannot be sent through Care Everywhere. * Anxiety Disorder (Mongolian) documented in this encounter* Attachments The following attachments cannot be sent through Care Everywhere. * Anxiety Disorder (Mongolian) documented in this encounter Assessments Diagnosis Pain [...] withdrawal abd pain Vomiting Chief Complaint BH [place] Slip. Brief Psychotic Disorder [place] Slip. Brief Psychotic Disorder Reason for Visit Acute psychosis Additional Source Comments INFORMATION SOURCE (unrecogn ized section and content) DATE CREATED AUTHOR [facility]04[facility]2018 [facility] [place] DATE CREATED AUTHOR AUTHOR'S ORGANIZ ATION 11/14/2018 [facility] DATE CREATED AUTHOR AUTHOR'S ORGANIZ ATION 03/12/2020 [facility] DATE CREATED AUTHOR AUTHOR'S ORGANIZ ATION 06/04/2020 [facility] DATE CREATED AUTHOR AUTHOR'S ORGANIZ ATION 09/28/2020 [facility] DATE CREATED AUTHOR AUTHOR'S ORGANIZ ATION 10/12/2020 [facility] DATE CREATED AUTHOR AUTHOR'S ORGANIZ ATION 10/19/2020 [facility] DATE CREATED AUTHOR AUTHOR'S ORGANIZ ATION 02/09/2021 [facility] DATE CREATED AUTHOR AUTHOR'S ORGANIZ ATION 05/04/2021 [facility] DATE CREATED AUTHOR AUTHOR'S ORGANIZ ATION 05/04/2021 [facility] DATE CREATED AUTHOR AUTHOR'S ORGANIZ ATION 06/02/2021 [facility] DATE CREATED AUTHOR AUTHOR'S ORGANIZ ATION 07/31/2021 [facility] DATE CREATED AUTHOR AUTHOR'S ORGANIZ ATION 03/13/[address] [facility] DATE CREATED AUTHOR AUTHOR'S ORGANIZ ATION 03/15/2022 [facility] DATE CREATED AUTHOR AUTHOR'S ORGANIZ ATION 01/17/2023 [facility] DATE CREATED AUTHOR AUTHOR'S ORGANIZ ATION 07/02/2023 [facility] DATE CREATED AUTHOR AUTHOR'S ORGANIZ ATION 07/05/2023 [facility] DATE CREATED AUTHOR AUTHOR'S ORGANIZ ATION 07/07/2023 [facility] DATE CREATED AUTHOR AUTHOR'S ORGANIZ ATION 07/15/2023 [facility] DATE CREATED AUTHOR AUTHOR'S ORGANIZ ATION 07/18/2023 [facility] DATE CREATED AUTHOR AUTHOR'S ORGANIZ ATION 08/07/2023 [facility] DATE CREATED AUTHOR AUTHOR'S ORGANIZ ATION 08/08/2023 [facility] DATE CREATED AUTHOR AUTHOR'S ORGANIZ ATION 08/14/2023 [facility] DATE CREATED AUTHOR AUTHOR'S ORGANIZ ATION 08/15/2023 [facility] Reason for Visit (unrecogniz ed [...] Referre d By Contact Referred To Contact [facility] [address] [place] [address] [facility] Reason Comments Anxiety Pt states that she's been drinking continuously for the past 3 weeks, states anxiety/panic attacks today; Has a hx of IV drug abuse as well; Reason Comments Withdrawal Alcohol Reason Comments Hypertension at [facility]. blood pressure checked today and was 146/100 Reason Comments Addiction Problem Reason Comments Panic Attack Reason Comments Psychiatric Evaluation Pt is from [facility] and is going through alcohol withdrawal, pt [...] IntraMUSCular, ONCE, 1 dose, On Sat05/03/21 at 1906 [id number] (Given - Provid er: Macrina Cerda RN) LORazepam (ATIVAN) injection 1 mg (COMPLETED) 1 mg, IntraVENous, ONCE, 1 dose, On Sat05/02/21 at 0461 6701 (Given - Provider: Macrina Cerda RN) LORazepam [...] - Provid er: Michelle Godoy - Comment: [id number] 10/04) No Frequency Medication Order 05/01/2021 05/02/2021 [...] 1 mg, oral, Once, On 12/16/22 at 202, For 1 dose 204 (Given - Provid er: Moni Montoya RN) LORazepam (Ativan) tablet 2 mg (COMPLETED) 2 mg, oral, Once, On 12/15/22 at 1525, For 1 dose 1545 (Given - Provider: Franchesca Calhoun RN) methadone (Dolophine) tablet 50 mg 50 mg, oral, Daily, First dose on 12/16/22 at 0900, RN must sign for and sisal picker medication at Pharmacy window. Please call [...] mg/min. 2208 (See Alternative - Provider: Jacob uRano RN) 0040 (See Alternative - Provider: Jacob Ruano RN)0411 (See Alternative - Provider: Eleonora Jaquez RN)0615 (See Alternative - Provider: Jacob Ruano RN) LORazepam (Ativan) injection 1 mg(Linked Group 1) 1 mg, intravenous, Administer over 5 Minutes, Every 2 hour PRN, CIWA score 8-9, Starting on Sat12/14/22 at 2137, Maximum rate of 2 mg/min. 2208 (Given - Provider: Jacob Ruano RN - Comment: CIGILBERT 8) 0040 (See Alternative - Provider: Jacob [...] Provider: Eleonora Jaquez RN)0615 (Given - Provider: Jcaob Ruano RN - Comment: CIWA 13) melatonin tablet 3 mg 3 mg, oral, Nightly PRN, sleep, Starting on 12/15/22 at 2237 2300 (Given - Provider: Bharati Barba RN) No Frequency Medication Order 12/14/2022 12/15/2022 12/16/2022 nicotine (Nicoderm CQ) patch - Omnicell Override Pull (COMPLETED) Starting on Sat12/16/22 at 0711, For 1 dose, Created by [...]
Care Team (unrecognized sect ion and content) Personnel Name: Birgit Aiken MD Address: Address: [address] [place] [address]- Name: Birgit PORTILLO Address: Address: [address], [address] [facility] [address] [place] [address]- Name: Freda Clarke LPN Name: Michelle Ferrera Team Status: Active Member Role Status Dates Amanda Barrios APRN BREWERY CELLAR WORKER-C Primary Care Provider Active Team Status: Active Member Role Status Dates Diamante [place] Primary Care Provider Active Star t: July 05, 2023 Gautam Burrows MD Attending Provider Active Start: July 05, 2023 Team Status: Inactive Member Role Status Dates Amanda Barrios APRN BREWERY CELLAR WORKER-C Primary Care Provider Active Start: August 06, 2023 End: August 10, 2023 Piyush Pace MD Admit Provider, Atte nding Provider Active Start: August 06, 2023 End: August 10, 2023 Team Status: Active Member Role Status Dates Amanda Barrios APRN BREWERY CELLAR WORKER-C Primary Care Provider Active Start: August 07, [...] Member Role Status Dates Amanda Barrios APRN BREWERY CELLAR WORKER-C Primary Care Provider Active Start: January 19, 2023 End: January 19, 2023 Pavel Yao DO Emergency Provider Active Start: January 19, 2023 End: January 19, 2023 Team Status: Inactive Member Role Status Dates Amanda Barrios APRN BREWERY CELLAR WORKER-C Primary Care Provider Active Start: January 25, 2023 End: January 25, 2023 Samanta Castro Jr, MD Emergency Provider Active Start: January 25, 2023 End: January 25, 2023 Team Status: Inactive Member Role Status Dates Amanda Barrios APRN BREWERY CELLAR WORKER-C Primary Care Provider Active Start: March 04, 2023 End: March 04, 2023 Azra Farmer DO Emergency Provider Active St art: March 04, 2023 End: March 04, 2023 Team Status: Inactive Member Role Status Dates Amanda Barrios APRN BREWERY CELLAR WORKER-C Primary Care Provider Active Start: March 12, 2023 End: March 12, 2023 Azra Farmer DO Emergency Provider Active St art: March 12, 2023 End: March 12, 2023 Team Status: Inactive Member Role Status Dates Amanda Barrios APRN BREWERY CELLAR WORKER-C Primary Care Provider Active Start: March 17, 2023 End: March 17, 2023 Delvis Benz DO Emergency Provider Active Sta rt: March 17, 2023 End: March 17, 2023 Team Status: Inactive Member Role Status Dates Amanda Barrios APRN BREWERY CELLAR WORKER-C Primary Care Provider Active Start: April 06, 2023 End: April 06, 2023 Declan Marina MD Emergency Provider Active St art: April 06, 2023 End: April 06, 2023 Team Status: Active Member Role Status Dates Diamante [place] Primary Care Provider Active Star t: 2023 Gautam Burrows MD Attending Provider Active Start: 2023 Team Status: Inactive Member Role Status Dates Amanda Barrios , RESEARCH KENNEL SUPERVISOR BREWERY CELLAR WORKER-C Primary Care Provider Active Azra Farmer DO Emergency Provider Active Team Status: Inactive Member Role Status Dates Amanda Barrios , RESEARCH KENNEL SUPERVISOR BREWERY CELLAR WORKER-C Primary Care Provider Active Declan Marina MD Emergency Provider Active Team Status: Inactive Member Role Status Dates Amanda aBrrios , RESEARCH KENNEL SUPERVISOR BREWERY CELLAR WORKER-C Primary Care Provider Active Ari Aguero , DO Emergency Provider Active Team Status: Inactive Member Role Status Dates Ari Aguero , DO Emergency Provider Active Amanda Barrios , RESEARCH KENNEL SUPERVISOR BREWERY CELLAR WORKER-C Primary Care Provider Active Team Status: Inactive Member Role Status Dates Amanda Barrios , RESEARCH KENNEL SUPERVISOR BREWERY CELLAR WORKER-C Primary Care Provider Active Eric Dooley MD Emergency Provider Active Team Status: Inactive Member Role Status Dates Amanda Barrios , RESEARCH KENNEL SUPERVISOR BREWERY CELLAR WORKER-C Primary Care Provider Active Braeden Schmitt PA-C Emergency Provider Active Team Status: Inactive Member Role Status Dates Amanda Barrios , RESEARCH KENNEL SUPERVISOR BREWERY CELLAR WORKER-C Primary Care Provider Active Ari Aguero DO Emergency Provider Active Joann Bojorquez DO RES Active Team Status: Inactive Member Role Status Dates Amanda Barrios , RESEARCH KENNEL SUPERVISOR BREWERY CELLAR WORKER-C Primary Care Provider Active Pavel Yao , DO Emergency Provider Active Team Status: Inactive Member Role Status Dates Amanda Barrios , RESEARCH KENNEL SUPERVISOR BREWERY CELLAR WORKER-C Primary Care Provider Active Kanchan Sanchez MD Attending Provider Active Team Status: Active Member Role Status Dates Amanda Barrios , RESEARCH KENNEL SUPERVISOR BREWERY CELLAR WORKER-C Primary Care Provider Active Ari Aguero DO Emergency Provider Active Nguyễn Burrows MD Admit Provider, Attending Pr ovider Active Team Status: Inactive Member Role Status Dates Amanda Barrios , RESEARCH KENNEL SUPERVISOR BREWERY CELLAR WORKER-C Primary Care Provider Active Ari Aguero DO Emergency Provider Active Nguyễn Burrows MD Admit Provider, Attending Pr ovider Active Key Filer Relationship Specialty Start Date End Date Nini Mccollum, RESEARCH KENNEL SUPERVISOR-COMMISSIONER [employer] [address] [place] [address] PCP - General 01/14/19 Team Status: Active Member Role Status Dates Diamante [place] Primary Care Provider Active Team Status: Inactive Member Role Status Dates Diamante [place] Primary Care Provider Active Braeden Schmitt PA-C Emergency Provider Active Team Status: Inactive Member Role Status Dates Amanda Barrios APRN BREWERY CELLAR WORKER-C Primary Care Provider Active Samanta Castro Jr, MD Emergency Provider Active Team Status: Inactive Member Role Status Dates Ari Aguero DO Emergency Provider Active Sta rt: December 11, 2022 End: December 11, 2022 Amanda Barrios APRN BREWERY CELLAR WORKER-C Primary Care Provider Active Start: December 11, 2022 End: December 11, 2022 Team Status: Inactive Member Role Status Dates Amanda Barrios APRN BREWERY CELLAR WORKER-C Primary Care Provider Active Start: April 08, 2023 End: April 08, 2023 Eric Dooley MD Emergency Provider Active Star t: April 08, 2023 End: April 08, 2023 Team Status: Inactive Member Role Status Dates Amanda Barrios APRN BREWERY CELLAR WORKER-C Primary Care Provider Active Start: April 25, [...] BE BASED ON THE PRIMARY CLINICAL RECORDS. [employer]. provides no warranty or guarantee of the accuracy or completeness of information in this document.
[2023-08-30] MEDS: FAMOTIDINE/PF 20 MG/2 ML VIAL IV (23:39)
[2023-08-30] MEDS: LACTATED RINGER'S SOLUTION 1,000 ML 125 ML IV (23:39)
[2023-08-31] VITALS (80 sets, daily range): BP systolic 108–152; BP diastolic 52–110; PULSE 60–105; TEMP 36–36.6; O2SAT 72–100
[2023-08-31] MEDS: LORAZEPAM 2 MG/ML VIAL 1 MG IV ×2 (03:08→18:11)
[2023-08-31 06:46] LABS: Basophils Percent Auto 0.4 % (0.2-2.0); Eosinophils Absolute Auto 0.1 10^3/uL (0.0-0.7); Eosinophils Percent Auto 0.9 % (0.9-7.0); Hematocrit 34.4 % (36.0-48.0); Hemoglobin 11.7 g/dL (12.0-16.0); Immature Granulocytes Abs Auto 0.01 10^3/uL (0.00-0.03); Immature Granulocytes Pct Auto 0.2 % (0.0-0.5); Lymphocytes Absolute Auto 1.6 10^3/uL (1.2-3.8); Lymphocytes Percent Auto 30.8 % (20.5-60.0); Mean Corpuscular Hemoglobin 34.8 pg (26.7-34.0); Mean Corpuscular Volume 102.4 fL (81.0-99.0); Mean Platelet Volume 10.2 fL (9.5-13.5); Monocytes Absolute Auto 0.6 10^3/uL (0.3-0.8); Monocytes Percent Auto 10.9 % (1.7-12.0); Neutrophils Percent Auto 56.8 % (43.0-75.0); Platelet Count 125 10^3/uL (150-450); Red Blood Count 3.36 10^6/uL (4.20-5.40); Red Cell Distribution Width 13.1 % (11.0-15.0); White Blood Count 5.3 10^3/uL (4.0-11.0)
[2023-08-31 07:06] LABS: Alanine Aminotransferase 78 U/L (14-59); Albumin Level 2.6 g/dL (3.4-5.0); Alkaline Phosphatase 108 U/L (46-116); Anion Gap 11.3; Aspartate Amino Transferase 120 U/L (15-37); Calcium 8.5 mg/dL (8.5-10.1); Carbon Dioxide 26.8 mmol/L (21.0-32.0); Chloride 106 mmol/L (98-107); Estimated GFR (African America >60 (>=60); Estimated GFR (Non-African Ame >60 (>=60); Glucose 85 mg/dL (74-106); Magnesium 1.5 mg/dL (1.8-2.4); Phosphorus 4.8 mg/dL (2.6-4.7); Potassium 4.1 mmol/L (3.5-5.1); Sodium 140 mmol/L (136-145); Total Protein 6.6 g/dL (6.4-8.2)
[2023-08-31 07:16] LABS: Albumin Globulin Ratio 0.7
[2023-08-31] MEDS: LACTATED RINGER'S SOLUTION 1,000 ML 125 ML IV ×2 (07:23→21:40)
--- NOTE | 2023-08-31 07:45 | PM.HP ---
HPI H&P: HPI History of Present Illness Chief complaint: withdrawals Narrative: Patient is a 33 y.o white female with long standing alcohol abuse, and other polysubstance abuse (methamphetamines). She was brought to the ER last night for confusion and talking crazy . The ER got most history from her sister who was present there, last drink was 3 days ago. This morning on exam, she states she started to drink more Vodka and beers. She had no desire to stop drinking but did had not had a drink in 3 days as she felt back. Shacking and confused. She reports history of seizures with withdrawal in the past. She takes clonidine and propranolol daily. She has tried prior rehab facilities but did not help. She notes feeling shaky this morning but no n/v/d. ER findings of ETOH level <3, AST 120, ALT 78, Normal Coags. UDS positive for methadone, amphetamines and benzo's. head CT- negative, chest X-ray negative. urine negative. Opioid HPI Opioid Management Most Recent Pain and Opioid Data: Last Pain Assessment 08/31/23 12:00 Last ORT Total Score 8 08/30/23 23:48 Last ORT Risk Category High Risk 08/30/23 23:48 Ur Phencyclidine Scrn Negative (NEGATIVE) 08/30/23 19:53 Review of Systems ROS Status of ROS unobtainable due to medical condition PFSH [facility] Social History Smoking status: Current every day smoker Meds Home Medications and Allergies Home Medications ?Medication ?Instructions ?Recorded ?Confirmed ?Type clonidine HCl 0.1 mg tablet mg 03/05/23 History gabapentin 800 mg tablet mg 03/05/23 History propranolol 40 mg tablet mg 03/05/23 History Allergies Allergy/AdvReac Type Severity Reaction Status Date / Time codeine Allergy Severe Verified 01/16/23 18:22 hydroxyzine [From Vistaril] AdvReac Severe Verified 01/16/23 18:22 Exam Narrative Exam Narrative: General: Patient is alert, but not oriented to person, place or time sits up in bed but tries to pick at her IV and stares at me with flat affect, she will mumble to answer some questions Skin: no visible rashes, or ulcers Head: atraumatic, acephalic Eyes: constricted pupil, no nystagmus present, conjunctiva clear, no scleral icterus Ears: normal gross auditory acuity Heart: Normal rate and rhythm, no murmurs/rubs/gallops Lungs: no audible wheezes, crackles and normal breath sounds all lung tejeda Abdomen: Normal audible bowel sounds, no distension, No palpable masses, no organomegaly, no rebound/guarding/ or rigidity Musculoskeletal: no swelling bilateral lower extremities Neuro: CN II-X grossly intact Constitutional Vital Signs, click to edit/add: Last Vital Signs Temp 97.9 F 08/31/23 06:37 Pulse 74 08/31/23 07:00 Resp 16 08/31/23 07:00 BP 142/93 H 08/31/23 06:33 Pulse Ox 97 08/31/23 07:00 O2 Del Method Room Air 08/31/23 05:25 Results Labs Labs: Short CBC 08/30/23 08/31/23 Range/Units 18:28 06:36 WBC 5.4 5.3 (4.0-11.0) 10^3/uL Hgb 11.8 L 11.7 L (12.0-16.0) g/dL Hct 35.1 L 34.4 L (36.0-48.0) % Plt Count 147 L 125 L (150-450) 10^3/uL BMP 08/30/23 08/31/23 18:28 06:36 Sodium 140 140 Potassium 3.7 4.1 Chloride 104 106 Carbon Dioxide 26.8 26.8 BUN 6.0 L 6.0 L Creatinine 0.84 0.67 Glucose 84 85 Calcium 9.1 8.5 Liver Function 08/30/23 08/31/23 Range/Units 18:28 06:36 Total Bilirubin 1.3 H 1.0 (0.2-1.0) mg/dL AST 119 H 120 H (15-37) U/L ALT 83 H 78 H (14-59) U/L Alkaline Phosphatase 126 H 108 (46-116) U/L Albumin 3.3 L 2.6 L (3.4-5.0) g/dL Urine 08/30/23 Range/Units 19:53 Urine Color Yellow (YELLOW) Urine Clarity Clear (CLEAR) Urine pH 6.0 (5.0-9.0) Ur Specific [place] 1.020 (1.005-1.025) Urine Protein Negative (NEG/TRACE) mg/dL Urine Glucose (UA) Negative (NEGATIVE) mg/dL Assessment and Plan Assessment and Plan (1) Acute hyperactive alcohol withdrawal delirium: Assessment and Plan: CIWA scores q2 hours, prn Valium with PO ATivan. Seizure precautions. continue folic acid and thiamine. I am not sure how much the patient wants to be helped. Will keep her until she can coherently make a decision about wanting to stop alcohol vs not. (2) Alcoholic hepatitis: Assessment and Plan: monitor liver enzymes, check ammonia level. Qualifiers: Ascites presence: without ascites Qualified Code(s): K70.10 - Alcoholic hepatitis without ascites (3) Acute metabolic encephalopathy: Assessment and Plan: from #1 (4) Methamphetamine abuse: Assessment and Plan: monitor (5) Hypomagnesemia: Assessment and Plan: replace Plan Patient is a full code continue with alcohol detox, will require 2-3 days of hospital necessary care for safe detox if she continues to want to go this route before decision is made about inpatient rehab facility.
[2023-08-31] MEDS: DIAZEPAM 10 MG/2 ML SYRINGE 5 MG IV ×2 (08:01→12:33)
[2023-08-31] MEDS: MAGNESIUM SULFATE IN WATER 2 GM/50 ML PREMIX IV (08:01)
[2023-08-31] MEDS: FOLIC ACID 1 MG TABLET PO (08:02)
[2023-08-31] MEDS: MULTIVITAMIN TABLET 1 TAB PO (08:02)
[2023-08-31] MEDS: THIAMINE MONONITRATE (VIT B1) 100 MG TABLET PO (08:02)
[2023-08-31 09:04] LABS: Glucometer 93 mg/dL (74-106)
[2023-08-31] MEDS: FAMOTIDINE/PF 20 MG/2 ML VIAL IV ×2 (10:42→21:42)
[2023-08-31] MEDS: NICOTINE 21 MG PATCH.TD24 TD (12:22)
[2023-08-31 13:25] LABS: Ammonia 51 umol/L (11-32)
[2023-08-31] MEDS: LACTULOSE 10 GM/15 ML UD CUP PO ×2 (14:11→21:41)
[2023-08-31] MEDS: LORAZEPAM 1 MG TABLET PO ×2 (14:11→21:41)
[2023-08-31] MEDS: CLONIDINE HCL 0.1 MG TABLET PO ×2 (16:25→21:41)
[2023-08-31] MEDS: TEMAZEPAM 15 MG CAPSULE PO (21:40)
[2023-09-01] VITALS (46 sets, daily range): BP systolic 95–155; BP diastolic 66–94; PULSE 50–100; TEMP 36–36.9; O2SAT 59–100
[2023-09-01] MEDS: LORAZEPAM 1 MG TABLET PO ×4 (02:36→22:01)
[2023-09-01 06:39] LABS: Basophils Percent Auto 0.3 % (0.2-2.0); Eosinophils Absolute Auto 0.1 10^3/uL (0.0-0.7); Eosinophils Percent Auto 1.6 % (0.9-7.0); Hematocrit 35.9 % (36.0-48.0); Immature Granulocytes Abs Auto 0.02 10^3/uL (0.00-0.03); Immature Granulocytes Pct Auto 0.7 % (0.0-0.5); Lymphocytes Absolute Auto 1.3 10^3/uL (1.2-3.8); Lymphocytes Percent Auto 43.8 % (20.5-60.0); Mean Corpuscular HGB Conc 33.4 g/dL (29.9-35.2); Mean Corpuscular Hemoglobin 34.8 pg (26.7-34.0); Mean Corpuscular Volume 104.1 fL (81.0-99.0); Mean Platelet Volume 10.4 fL (9.5-13.5); Monocytes Absolute Auto 0.3 10^3/uL (0.3-0.8); Monocytes Percent Auto 11.2 % (1.7-12.0); Neutrophils Absolute Auto 1.3 10^3/uL (1.4-6.5); Neutrophils Percent Auto 42.4 % (43.0-75.0); Platelet Count 125 10^3/uL (150-450); Red Blood Count 3.45 10^6/uL (4.20-5.40); Red Cell Distribution Width 12.9 % (11.0-15.0)
[2023-09-01 06:58] LABS: Ammonia 50 umol/L (11-32)
[2023-09-01 06:59] LABS: Alanine Aminotransferase 117 U/L (14-59); Albumin Globulin Ratio 0.6; Albumin Level 2.7 g/dL (3.4-5.0); Alkaline Phosphatase 115 U/L (46-116); Anion Gap 13.2; Aspartate Amino Transferase 187 U/L (15-37); BUN Creatinine Ratio 7.7; Bilirubin Total 0.4 mg/dL (0.2-1.0); Calcium 8.3 mg/dL (8.5-10.1); Chloride 103 mmol/L (98-107); Estimated GFR (African America >60 (>=60); Estimated GFR (Non-African Ame >60 (>=60); Globulin 4.2 g/dL; Glucose 134 mg/dL (74-106); Magnesium 1.5 mg/dL (1.8-2.4); Potassium 4.2 mmol/L (3.5-5.1); Sodium 138 mmol/L (136-145); Total Protein 6.9 g/dL (6.4-8.2)
--- NOTE | 2023-09-01 07:15 | PM.PN ---
Progress Note: Subjective Subjective Interval history: Patient sitting up in bed, eating breakfast. No current complaints. Feeling much better today. No shaking of the hands. She would like to smoke a cigarette. She is understandable today, answers questions appropriately. She Does not wish to do inpatient rehab. She wishes to go home from the hospital with plans to remain off alcohol. maybe attend AA meetings. Also discussed her liver damage from alcohol and high ammonia levels Exam Narrative Exam Narrative: General: Patient is alert, and oriented to person, place and time with normal affect, proper hygiene Skin: no visible rashes, or ulcers Head: atraumatic, acephalic Eyes: PERRLA, no nystagmus present, conjunctiva clear, no scleral icterus Heart: Normal rate and rhythm, no murmurs/rubs/gallops Lungs: no audible wheezes, crackles and normal breath sounds all lung tejeda Abdomen: Normal audible bowel sounds, no distension, No palpable masses, no organomegaly, no rebound/guarding/ or rigidity Musculoskeletal: no swelling bilateral lower extremities Neuro: CN II-X grossly intact Constitutional Vital Signs, click to edit/add: Last Vital Signs Temp 96.8 F L 09/01/23 06:00 Pulse 83 09/01/23 06:23 Resp 16 09/01/23 05:17 BP 140/82 09/01/23 05:13 Pulse Ox 98 08/31/23 23:00 O2 Del Method Room Air 08/31/23 20:51 Progress Note: Objective Labs Labs: Short CBC 09/01/23 Range/Units 06:31 WBC 3.0 L (4.0-11.0) 10^3/uL Hgb 12.0 (12.0-16.0) g/dL Hct 35.9 L (36.0-48.0) % Plt Count 125 L (150-450) 10^3/uL BMP 08/31/23 06:36 Sodium 140 Potassium 4.1 Chloride 106 Carbon Dioxide 26.8 BUN 6.0 L Creatinine 0.67 Glucose 85 Calcium 8.5 Liver Function 08/31/23 Range/Units 06:36 Total Bilirubin 1.0 (0.2-1.0) mg/dL AST 120 H (15-37) U/L ALT 78 H (14-59) U/L Alkaline Phosphatase 108 (46-116) U/L Albumin 2.6 L (3.4-5.0) g/dL Progress Note: A&P Assessment and Plan (1) Acute hyperactive alcohol withdrawal delirium: Assessment and Plan: CIWA scores q4 hours, prn ativan with scheduled PO ATivan, will decrease dosage today. Seizure precautions. continue folic acid and thiamine. (2) Alcoholic hepatitis: Assessment and Plan: monitor liver enzymes, continue lactulose for elevated ammonia levels of 51, will also check acute hepatitis panel Qualifiers: Ascites presence: without ascites Qualified Code(s): K70.10 - Alcoholic hepatitis without ascites (3) Acute metabolic encephalopathy: Assessment and Plan: from #1, improving today (4) Methamphetamine abuse: (5) Hypomagnesemia: Assessment and Plan: replace Plan Patient is a full code continue medical detox
[2023-09-01] MEDS: LACTATED RINGER'S SOLUTION 1,000 ML 125 ML IV ×3 (08:39→23:12)
[2023-09-01] MEDS: CLONIDINE HCL 0.1 MG TABLET PO ×2 (08:39→20:16)
[2023-09-01] MEDS: MULTIVITAMIN TABLET 1 TAB PO (08:46)
[2023-09-01] MEDS: FOLIC ACID 1 MG TABLET PO (08:47)
[2023-09-01] MEDS: LACTULOSE 10 GM/15 ML UD CUP PO ×2 (08:47→20:16)
[2023-09-01] MEDS: NICOTINE 21 MG PATCH.TD24 TD (08:50)
[2023-09-01] MEDS: THIAMINE MONONITRATE (VIT B1) 100 MG TABLET PO (08:50)
[2023-09-01] MEDS: FAMOTIDINE/PF 20 MG/2 ML VIAL IV ×2 (09:01→21:52)
[2023-09-01] MEDS: MAGNESIUM SULFATE IN WATER 4 GM/100 ML PIGGYBACK IV (14:16)
[2023-09-01] MEDS: TEMAZEPAM 15 MG CAPSULE PO (21:52)
[2023-09-02] VITALS (13 sets, daily range): BP systolic 140–166; BP diastolic 90–102; PULSE 53–85; TEMP 36.4–36.6; O2SAT 59–98
[2023-09-02] MEDS: LORAZEPAM 2 MG/ML VIAL 1 MG IV ×2 (01:42→03:57)
[2023-09-02 04:39] LABS: Hematocrit 32.3 % (36.0-48.0); Mean Corpuscular HGB Conc 34.1 g/dL (29.9-35.2); Mean Corpuscular Volume 102.9 fL (81.0-99.0); Mean Platelet Volume 10.2 fL (9.5-13.5); Platelet Count 142 10^3/uL (150-450); Red Blood Count 3.14 10^6/uL (4.20-5.40); Red Cell Distribution Width 12.8 % (11.0-15.0)
[2023-09-02 04:52] LABS: Ammonia 38 umol/L (11-32)
[2023-09-02 04:54] LABS: Alanine Aminotransferase 111 U/L (14-59); Albumin Globulin Ratio 0.6; Albumin Level 2.4 g/dL (3.4-5.0); Alkaline Phosphatase 103 U/L (46-116); Anion Gap 7.7; Aspartate Amino Transferase 147 U/L (15-37); Bilirubin Total 0.3 mg/dL (0.2-1.0); Calcium 8.4 mg/dL (8.5-10.1); Carbon Dioxide 29.2 mmol/L (21.0-32.0); Chloride 105 mmol/L (98-107); Estimated GFR (African America >60 (>=60); Estimated GFR (Non-African Ame >60 (>=60); Globulin 3.9 g/dL; Glucose 110 mg/dL (74-106); Magnesium 1.6 mg/dL (1.8-2.4); Potassium 3.9 mmol/L (3.5-5.1); Sodium 138 mmol/L (136-145); Total Protein 6.3 g/dL (6.4-8.2)
[2023-09-02 04:55] LABS: BUN Creatinine Ratio 6.3
[2023-09-02 05:17] LABS: Band Neutrophils Absolute 0.1 10^3/uL (0.0-0.3); Eosinophils Absolute Manual 0.06 10^3/uL (0.00-0.70); Lymphocytes Absolute Manual 1.26 10^3/uL (1.20-3.80); Monocytes Absolute Manual 0.21 10^3/uL (0.30-0.80); Segmented Neut Absolute Manual 1.41 10^3/uL (1.4-6.5)
[2023-09-02] MEDS: LACTATED RINGER'S SOLUTION 1,000 ML 125 ML IV (07:45)
--- NOTE | 2023-09-02 08:30 | PM.DS1 ---
DS: Providers Provider Date of admission: 08/30/23 21:40 Primary care physician: Non-Staff Physician, Admitting clinician: Bety Baker Consults: 09/01/23 Consult to PICC Line RN Routine Consulting Provider: Bety Baker Reason for consultation: No IV Access, hard stick, magnesium, valium Has provider been notified: Yes 09/01/23 07:14 Consult to Customer Sales Service Manager Routine Has provider been notified: No Reason for consult:: Drug Abuse Discharging clinician: Bety Baker DS: Diagnosis Discharge Diagnosis (1) Alcoholic hepatitis: Qualifiers: Ascites presence: without ascites Qualified Code(s): K70.10 - Alcoholic hepatitis without ascites (2) Acute hyperactive alcohol withdrawal delirium: (3) Acute metabolic encephalopathy: (4) Methamphetamine abuse: (5) Hypomagnesemia: DS: Summary Hospital Course Hospital Course: Patient is a 33 y.o white female with long standing alcohol abuse, and other polysubstance abuse (methamphetamines). She was brought to the ER on 08/31/23 for confusion and talking crazy . The ER got most history from her sister who was present there, last drink was 3 days ago. This morning on exam, she states she started to drink more Vodka and beers. She stopped drinking 3 days prior to admission as she felt bad. Shacking and confused. She reports history of seizures with withdrawal in the past. She takes clonidine and propranolol daily. She has tried prior rehab facilities but did not help. Patient was initially treated with schedule ATivan and PRN ATivan for CIWA scores q2 hours, I slowly decreased Ativan dosage daily. No seizure events but in Seizure precautions. continued folic acid and thiamine. Elevated LFT's 2x normal in the 100's with hepatic encephalopathy with ammonia 51. She also received lactulose daily. At the time of discharge she has been seizure free for 72 hours, 6-7 days from last drink. She has a plan to do outpatient AA meetings via Zoom and continue to see her Psychiatrist and PCP. I have sent Lactulose 10mL BID for 3 more days. She will need to continue on Folic acid, multivitamin and Thiamine these were sent to pharmacy. She Will continue her home medications which will also help with any further withdrawal symptoms. I have an acute hepatitis panel pending. She will follow up for recheck liver enzymes and ammonia level as outpatient by her pcp within 1 week. We discussed the absence of alcohol will improve this. She is to return to ER with any worsening signs or symptoms. Patient wants to go home, refuses inpatient rehab at this time. Status at Discharge Functional status at discharge: independent ambulation Overall status at discharge: patient is back to baseline Time Spent with Patient Time attestation: Total time spent providing and/or coordinating discharge services: Time spent: greater than 30 minutes Exam Narrative Exam Narrative: General: Patient is alert, and oriented to person, place and time with normal affect, proper hygiene Skin: no visible rashes, or ulcers Head: atraumatic, acephalic Eyes: PERRLA, no nystagmus present, conjunctiva clear, no scleral icterus Ears: normal gross auditory acuity Heart: Normal rate and rhythm, no murmurs/rubs/gallops Lungs: no audible wheezes, crackles and normal breath sounds all lung tejeda Abdomen: Normal audible bowel sounds, no distension, No palpable masses, no organomegaly, no rebound/guarding/ or rigidity Musculoskeletal: no swelling bilateral lower extremities Neuro: CN II-X grossly intact Constitutional Vital Signs, click to edit/add: Last Vital Signs Temp 97.9 F 09/02/23 07:34 Pulse 56 L 09/02/23 08:00 Resp 12 09/02/23 07:34 BP 140/90 09/02/23 07:36 Pulse Ox 95 09/02/23 07:34 O2 Del Method Room Air 09/02/23 07:34 DS: Data Data Completed and Pending Labs on day of discharge: Labs from last 24 hours 09/02/23 04:20 WBC 3.0 L RBC 3.14 L Hgb 11.0 L Hct 32.3 L MCV 102.9 H MCH 35.0 H MCHC 34.1 RDW 12.8 Plt Count 142 L MPV 10.2 Seg Neuts % (Manual) 47.0 Band Neutrophils % 2.0 Lymphocytes % (Manual) 42.0 Atypical Lymphs % (Man) 0.0 Monocytes % (Manual) 7.0 Eosinophils % (Manual) 2.0 Basophils % (Manual) 0.0 L Neutrophils # (Manual) 1.41 Band Neutrophils # 0.1 Lymphocytes # (Manual) 1.26 Abs Atypical Lymphs Man 0.00 Monocytes # (Manual) 0.21 L Eosinophils # (Manual) 0.06 Basophils # (Manual) 0.00 Sodium 138 Potassium 3.9 Chloride 105 Carbon Dioxide 29.2 Anion Gap 7.7 BUN 4.0 L Creatinine 0.64 Est GFR ( Amer) >60 Est GFR (Non-Af Amer) >60 BUN/Creatinine Ratio 6.3 Glucose 110 H Calcium 8.4 L Magnesium 1.6 L Total Bilirubin 0.3 AST 147 H ALT 111 H Alkaline Phosphatase 103 Ammonia 38 H Total Protein 6.3 L Albumin 2.4 L Globulin 3.9 Albumin/Globulin Ratio 0.6 Discharge Plan Discharge Disposition: Home, Self-Care Discharge Medications: New thiamine mononitrate (vit B1) 100 mg Tablet 100 mg PO QD 30 Days Qty: 30 0RF lactulose 10 gram/15 mL (15 mL) Solution 10 g PO BID 3 Days Qty: 90 0RF multivitamin with folic acid [Tab-A-Sameera] 400 mcg Tablet 1 tab PO QD 30 Days Qty: 30 0RF Continued clonidine HCl 0.1 mg tablet 0.1 mg PO Q12H propranolol 40 mg tablet 40 mg PO .QD PRN (Reason: anxiety) gabapentin 800 mg tablet 800 mg PO TID buspirone 5 mg tablet 5 mg PO BID Activity: increase activity as tolerated Diet: advance to your usual diet Print Language: Welsh Patient Instructions: Alcohol Intoxication (DC), Abuse of Alcohol (DC), Alcohol Withdrawal (DC) Forms: Portal Instructions Follow Up Appointments: please follow up with PCP 3-5 days and with Psychiatrist 7 days, Please keep plan for outpatient AA services. Discharge location: Home
[2023-09-02] MEDS: LACTULOSE 10 GM/15 ML UD CUP PO (09:16)
[2023-09-02] MEDS: MULTIVITAMIN TABLET 1 TAB PO (09:16)
[2023-09-02] MEDS: BUSPIRONE HCL 10 MG TABLET 5 MG PO (09:16)
[2023-09-02] MEDS: FAMOTIDINE/PF 20 MG/2 ML VIAL IV (09:16)
[2023-09-02] MEDS: THIAMINE MONONITRATE (VIT B1) 100 MG TABLET PO (09:16)
[2023-09-02] MEDS: CLONIDINE HCL 0.1 MG TABLET PO (09:17)
[2023-09-02] MEDS: LORAZEPAM 1 MG TABLET 0.5 MG PO (09:17)
[2023-09-02] MEDS: PROPRANOLOL HCL 20 MG TABLET 40 MG PO (09:17)
[2023-09-02] MEDS: FOLIC ACID 1 MG TABLET PO (09:18)
--- NOTE | 2023-09-02 10:23 | SWNOTE1 ---
SW met with pt to discuss drug and alcohol rehab. Pt was sleeping, but work to complete assessment with SW. Pt voiced she has been drinking on and off for several months. Pt did not provide alcohol of choice and how much, nor did she provide information about the drug screen being positive. Pt gave few word sentences during asssessment. Pt has been sober for 6 days, she stated day 3 is usually the worst. She stated she is never drinking again. Pt has been to inpt/outpt rehab in past and it works for awhile, then relapses. She stated she does not want to go anywhere. Pt voiced that someone from lab brought her a list of AA meetings. SW offered another list, but she did not want. SW offered a list of outpt/inpt facilities and she did want this. SW gave to pt to keep. Pt will be discharged home today and voiced she has good support between her mother and 3 sisters. One of her sisters will be picking her up. Pt has no other concerns at this time. SW to follow as needed.
--- NOTE | 2023-09-02 10:53 | CM.NOTE ---
Rounds made with Dr. Baker. Plan for discharge today. Will need to follow up with PCP and plan for AA meetings. Lebron agreeable to plan.
[2023-09-03 00:10] LABS: Osmolality, Urine 363 mOsmol/kg (.)
--- NOTE | 2023-09-03 11:31 | CM.DCFOLLOWU ---
1st attempt 09/03/23
--- NOTE | 2023-09-04 13:39 | CM.DCFOLLOWU ---
2nd attempt 09/04/23
[2023-09-05 12:11] LABS: HBsAg Screen Negative (Negative); HCV Ab Reactive (Non Reactive); Hep A Ab, IgM Negative (Negative); Hep B Core Ab, IgM Negative (Negative)
== END 2023-09-02 12:07 | disposition home or self-care (01) | DRG 775 ==
LOC: ER 20:25 → ICU 23:20 → MS 09-01 18:28
PROVIDERS: Emergency Medicine; Registered Nurse; Admitting Provider Family Medicine; Emergency Provider Internal Medicine; Visit Provider Family Medicine
DX: F10.231 Alcohol dependence with withdrawal delirium (principal); K70.10 Alcoholic hepatitis without ascites; G93.41 Metabolic encephalopathy; E83.42 Hypomagnesemia; F15.10 Other stimulant abuse, uncomplicated; F17.210 Nicotine dependence, cigarettes, uncomplicated; Y90.0 Blood alcohol level of less than 20 mg/100 ml
CPT/HCPCS: 36410; 36415; 36592; 70450; 71045; 80053; 80074; 80179; 80307; 80320; 80329; 81003; 82140; 83690; 83735; 83880; 83935; 84100; 84484; 85007; 85025; 85027; 85610; 86850; 86900; 86901; 93005; 94761; 96365; 96366; 96375; 96376; 99285; C1887; J1230; J1630; J2060; J2405; J3360; J3475

== ENCOUNTER 2023-09-10 15:31 | Inpatient (IN) | payer OTHER, SELFPAY ==
[2023-09-10 15:37] VITALS: BP 119/77; PULSE 79; TEMP 36.9; O2SAT 96; BMI 21.9
--- NOTE | 2023-09-10 15:49 | ECG_ITS ---
[facility] Test Date: 2023-09-10 Pat Name: LYLE BAILEY Department: Room: - Gender: Female Concierge: : 1990 Requested By: Order Number: [id number] Reading MD: PHI SANTIAGO Measurements Intervals Dyke Rate: 88 P: 69 MO: 154 QRS: 97 QRSD: 80 T: 17 QT: 356 QTc: 402 Interpretive Statements 1100 Sinus rhythm 6220 Possible left atrial enlargement 7102 Moderate right axis deviation 8102 Low QRS voltage in chest leads 9130 borderline ECG Compared to ECG 08/30/2023 18:25:10 Low QRS voltage now present Electronically Signed On 09-10-2023 23:09:12 EDT by PHI SANTIAGO
--- NOTE | 2023-09-10 15:50 | XR_ITS ---
The [address] [address] Patient Name: LYLE BAILEY MRN: [id number] date: 1990 Sex: F Assigned Patient Location: ER Current Patient Location: ED.MAIN Accession/Order Number: [id number] Exam Date: 09/10/2023 16:00 Report Date: 09/10/2023 16:16 At the request of: SJ CARTAGENA Procedure: XR chest 1V EXAMINATION: XR chest 1V HISTORY: cough COMPARISON: 08/30/2023 TECHNIQUE: AP portable FINDINGS: LUNGS: No significant pulmonary parenchymal abnormalities. VASCULATURE: No increased pulmonary vasculature. PLEURA: No pneumothorax, effusion, or pleural thickening. CARDIAC: No cardiomegaly or cardiac silhouette abnormality. MEDIASTINUM: No visible mass or adenopathy. BONES: No fracture or visible bone lesion. OTHER: Negative. XR/XR chest 1V IMPRESSION: No acute cardiopulmonary process Electronically authenticated by: CRESCENCIO KIM Date: 09/10/2023 16:16
[2023-09-10 16:26] LABS: Basophils Absolute Auto 0.1 10^3/uL (0.0-0.1); Eosinophils Percent Auto 0.7 % (0.9-7.0); Hematocrit 44.6 % (36.0-48.0); Hemoglobin 14.7 g/dL (12.0-16.0); Immature Granulocytes Abs Auto 0.01 10^3/uL (0.00-0.03); Immature Granulocytes Pct Auto 0.2 % (0.0-0.5); Lymphocytes Percent Auto 48.8 % (20.5-60.0); Mean Corpuscular Hemoglobin 34.2 pg (26.7-34.0); Mean Corpuscular Volume 103.7 fL (81.0-99.0); Monocytes Absolute Auto 0.3 10^3/uL (0.3-0.8); Monocytes Percent Auto 4.6 % (1.7-12.0); Neutrophils Absolute Auto 2.7 10^3/uL (1.4-6.5); Neutrophils Percent Auto 44.7 % (43.0-75.0); Platelet Count 255 10^3/uL (150-450); Red Cell Distribution Width 12.8 % (11.0-15.0); White Blood Count 6.1 10^3/uL (4.0-11.0)
[2023-09-10] MEDS: ONDANSETRON PF 4 MG/2 ML VIAL IV ×2 (16:26→21:47)
[2023-09-10] MEDS: [UNRECOGNIZED DRUG - OTHER] IV (16:26)
[2023-09-10] MEDS: MULTIVIT INFUSN ADULT K IV (16:26)
[2023-09-10] MEDS: THIAMINE HCL IV (16:26)
[2023-09-10 16:39] LABS: INR 1.19; Prothrombin Time 12.4 sec (9.0-11.6)
[2023-09-10 16:46] LABS: Anion Gap 12.1
[2023-09-10 16:48] LABS: Alanine Aminotransferase 127 U/L (14-59); Albumin Globulin Ratio 0.6; Alkaline Phosphatase 136 U/L (46-116); Aspartate Amino Transferase 204 U/L (15-37); BUN Creatinine Ratio 7.7; Bilirubin Total 0.3 mg/dL (0.2-1.0); Calcium 8.5 mg/dL (8.5-10.1); Carbon Dioxide 25.7 mmol/L (21.0-32.0); Chloride 106 mmol/L (98-107); Estimated GFR (African America >60 (>=60); Estimated GFR (Non-African Ame >60 (>=60); Ethanol 374 mg/dL; Globulin 4.7 g/dL; Glucose 111 mg/dL (74-106); Magnesium 1.8 mg/dL (1.8-2.4); Potassium 3.8 mmol/L (3.5-5.1); Sodium 140 mmol/L (136-145); Total Protein 7.7 g/dL (6.4-8.2)
--- NOTE | 2023-09-10 17:51 | ED.GENADUL1 ---
HPI HPI - General Adult General Chief complaint: Alcohol Stated complaint: WITHDRAWALS Time Seen by Provider: 09/10/23 15:41 Source: patient and family Source information: mother Mode of arrival: Wheelchair Limitations: altered mental status History of Present Illness HPI narrative: Patient is a 33-year-old female who is presenting to the ER with chief complaint alcolhol intoxication. Patient lives at home with her mother. Patient is alcoholic, patient drinks approximately a half gallon of vodka a day with beer. Patient is altered, but the history is very unclear. Patient denies any type of headache. Patient has no chest pain or shortness of breath, no nausea or vomiting. Pt mother states she does meth as well, uncertain what drugs maybe in the patients system. no head injury. pt has had alcohol withdrawal before as well. Patient was seen and evaluated here in the emergency room on the of this month and admitted for 3 days. At that time she did have seizures and alcohol delirium. Patient is not eliciting those symptoms at this time. She did drink today. Mom states she believes that starting yesterday she drank a pint of alcohol. She had not drank since being discharged home on the and began drinking yesterday due to itching. Related Data Home Medications ?Medication ?Instructions ?Recorded ?Confirmed clonidine HCl 0.1 mg tablet 0.1 mg PO Q12H 03/05/23 09/01/23 gabapentin 800 mg tablet 800 mg PO TID 03/05/23 09/01/23 propranolol 40 mg tablet 40 mg PO .QD PRN anxiety 03/05/23 09/01/23 buspirone 5 mg tablet 5 mg PO BID 09/01/23 09/01/23 Previous Rx's ?Medication ?Instructions ?Recorded lactulose 10 gram/15 mL (15 mL) 10 g (15 mL) PO BID 3 days #90 mL 09/02/23 oral solution multivitamin with folic acid 400 1 tab PO QD 30 days #30 tabs 09/02/23 mcg tablet (Tab-A-Sameera) thiamine mononitrate (vit B1) 100 100 mg PO QD 30 days #30 tabs 09/02/23 mg tablet Allergies Allergy/AdvReac Type Severity Reaction Status Date / Time codeine Allergy Severe Hives Verified 09/10/23 15:42 hydroxyzine [From Vistaril] AdvReac Severe Hives Verified 09/10/23 15:42 Opioid HPI Opioid Management Most Recent Opioid Data: Last Pain Scale 0 09/02/23 09:00 Last ORT Total Score 8 08/30/23 23:48 Last ORT Risk Category High Risk 08/30/23 23:48 Ur Phencyclidine Scrn Negative (NEGATIVE) 08/30/23 19:53 Review of Systems ROS Narrative All Systems are negative except as noted/marked.All systems reviewed and otherwise negative PFSH PFSH Medical History (Updated 09/10/23 @ 19:44 by Nini Acuna) 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 General: The patient appears well and in no apparent distress. Patient is resting comfortably on cart. Skin: Warm, dry, no pallor noted. There is no rash noted. Head: Normocephalic, atraumatic Eye: Normal conjunctiva, no drainage, EOMI. PERRL Ears, Nose, Mouth, and Throat: oral mucosa is moist. Nares patent. Mouth without vesicles. Ear canals patent. Tm's without Erythema Cardiovascular: Regular Rate and Rhythm Respiratory: Patient is in no distress, no accessory muscle use, lungs are clear to auscultation, no wheezing, rales or rhonchi Back: non-tender, no CVA tenderness bilaterally to percussion. GI: Normal bowel sounds, no tenderness to palpation, no masses appreciated. No rebound, guarding, or rigidity noted. Musculoskeletal: The patient has no evidence of calf tenderness, no pitting edema, symmetrical pulses noted bilaterally Neurological: under influence, no neurologic deficits alert to place and self Psychiatric: intoxicated Constitutional Vital Signs, click to edit/add: Last Vital Signs Temp 98.5 F 09/10/23 15:37 Pulse 79 09/10/23 15:37 Resp 16 09/10/23 15:37 BP 119/77 09/10/23 15:37 Pulse Ox 96 09/10/23 15:37 O2 Del Method Room Air 09/10/23 15:37 Course Vital Signs Vital signs: Vital Signs Temperature 98.5 F 07/30/24 15:37 Pulse Rate 79 09/10/23 15:37 Respiratory Rate 16 09/10/23 15:37 Blood Pressure 119/77 09/10/23 15:37 Pulse Oximetry 96 09/10/23 15:37 Oxygen Delivery Method Room Air 09/10/23 15:37 Temperature 98.5 F 09/10/23 15:37 Pulse Rate 79 09/10/23 15:37 Respiratory Rate 16 09/10/23 15:37 Blood Pressure 119/77 09/10/23 15:37 Pulse Oximetry 96 09/10/23 15:37 Oxygen Delivery Method Room Air 09/10/23 15:37 Medical Decision Making MDM Narrative Medical decision making narrative: Patient is a 33-year-old female who is presenting to the ER with chief complaint alcolhol intoxication. Patient lives at home with her mother. Patient is alcoholic, patient drinks approximately a half gallon of vodka a day with beer. Patient is altered, but the history is very unclear. Patient denies any type of headache. Patient has no chest pain or shortness of breath, no nausea or vomiting. Pt mother states she does meth as well, uncertain what drugs maybe in the patients system. no head injury. pt has had alcohol withdrawal before as well. Patient was seen and evaluated here in the emergency room on the of this month and admitted for 3 days. At that time she did have seizures and alcohol delirium. Patient is not eliciting those symptoms at this time. She did drink today. Mom states she believes that starting yesterday she drank a pint of alcohol. She had not drank since being discharged home on the and began drinking yesterday due to itching. Here to the emergency room acutely intoxicated. She was alert to herself and place. She could answer questions but did appear intoxicated she denies any abdominal pain no head injury. Patient was dropped off at the door by her mother and her mother states she would come in pick her up if we did send her home. Mom does request the patient tried to get a an admission to a withdrawal center. I did advise mom that this may or may not happen depending on the patient's decisions. She has not shown any signs of alcohol withdrawal at this time she does have an elevated EtOH of 374 currently, her ammonia is 66, AST is 204 ALT is 127 alk phos is 136. Upon discharge on the 22nd earlier this month patient's ammonia was down to 38. [facility] Currently sleeping she is stable vital signs are stable she has no pain on examination. She will be admitted due to her history here in our hospital to the ICU for observation. Diagnosis of alcoholic hepatitis, alcohol intoxication Differential Diagnosis Differential Diagnosis: Application, alcohol abuse, elevated liver enzymes, pancreatitis, Medical Records Medical records reviewed: Yes I reviewed the patient's medical records Lab Data Lab results reviewed: Yes I reviewed the patient's lab results Labs: Lab Results 09/10/23 09/10/23 09/10/23 Range/Units 16:16 18:10 18:15 WBC 6.1 (4.0-11.0) 10^3/uL RBC 4.30 (4.20-5.40) 10^6/uL Hgb 14.7 (12.0-16.0) g/dL Hct 44.6 (36.0-48.0) % MCV 103.7 H (81.0-99.0) fL MCH 34.2 H (26.7-34.0) pg MCHC 33.0 (29.9-35.2) g/dL RDW 12.8 (11.0-15.0) % Plt Count 255 (150-450) 10^3/uL MPV 10.0 (9.5-13.5) fL Neut % (Auto) 44.7 (43.0-75.0) % Lymph % (Auto) 48.8 (20.5-60.0) % [place] % (Auto) 4.6 (1.7-12.0) % Eos % (Auto) 0.7 L (0.9-7.0) % Baso % (Auto) 1.0 (0.2-2.0) % Neut # (Auto) 2.7 (1.4-6.5) 10^3/uL Lymph # (Auto) 3.0 (1.2-3.8) 10^3/uL [place] # (Auto) 0.3 (0.3-0.8) 10^3/uL Eos # (Auto) 0.0 (0.0-0.7) 10^3/uL Baso # (Auto) 0.1 (0.0-0.1) 10^3/uL Abs Immat Gran (auto) 0.01 (0.00-0.03) 10^3/uL Imm/Tot Granulo (auto) 0.2 (0.0-0.5) % PT 12.4 H (9.0-11.6) sec INR 1.19 Sodium 140 (136-145) mmol/L Potassium 3.8 (3.5-5.1) mmol/L Chloride 106 (98-107) mmol/L Carbon Dioxide 25.7 (21.0-32.0) mmol/L Anion Gap 12.1 BUN 4.0 L (7.0-18.0) mg/dL Creatinine 0.52 L (0.55-1.02) mg/dL Est GFR ( Amer) >60 (>=60) Est GFR (Non-Af Amer) >60 (>=60) BUN/Creatinine Ratio 7.7 Glucose 111 H (74-106) mg/dL Calcium 8.5 (8.5-10.1) mg/dL Phosphorus 5.0 H (2.6-4.7) mg/dL Magnesium 1.8 1.8 (1.8-2.4) mg/dL Total Bilirubin 0.3 (0.2-1.0) mg/dL AST 204 H (15-37) U/L ALT 127 H (14-59) U/L Alkaline Phosphatase 136 H (46-116) U/L Ammonia 66 H* (11-32) umol/L Total Protein 7.7 (6.4-8.2) g/dL Albumin 3.0 L (3.4-5.0) g/dL Globulin 4.7 g/dL Albumin/Globulin Ratio 0.6 Lipase 43.0 (16.0-77.0) U/L Ethanol Quant 374 mg/dL ECG Data Attestation: ?I have reviewed the pertinent ECG results. Interpretation: 1548 rate of 88 bpm, QRS duration 80 ms [place] interval 154 ms no STEMI Discharge Plan Discharge Chief Complaint: Alcohol Clinical Impression: Alcohol intoxication, Alcoholic hepatitis Patient Disposition: Admitted As Inpatient Time of Disposition Decision: 19:20 Condition: Fair
[2023-09-10 18:42] LABS: Ammonia 66 umol/L (11-32)
[2023-09-10 18:42] LABS: Magnesium 1.8 mg/dL (1.8-2.4)
--- OUTSIDE RECORDS SUMMARY | 2023-09-10 21:07 | XMS_ITS | CCD ---
Author Organization [facility] CliniSyar Care Team Providers Care Columnist/Commentator Name Role Phone ELVIS CAMPBELL Primary Care Unavailable Elvis Campbell Primary Care Provider [phone] Wolf, Nini Unavailable Unavailable TavMe delmarhrdad Unavailable Unavailable Wolf, Nini D Unavailable Unavailable Elvis Campbell V Unavailable Unavailable Wolf, Nini Unavailable Unavailable Wolf, Nini D Unavailable Unavailable Wolf, Nini Primary Care Provider WOLF, NINI Primary Care Unavailable CRESCENCIO EMANUEL Attending Unavailable Wolf, Nini D Unavailable Unavailable Unavailable Elvis Campbell V Unavailable Wolf, Nini Unavailable Chilo Glover Unavailable Unavailable [...] Emergency Provider DO Ari Aguero Emergency Provider Unavailable Primary Care Provider UnavailPHU Ornelas Attending Unavailable DECLAN GOEL Attending Unavailable JOEL ALVES Attending Unavailable MD Eric Dooley Emergency Provider TAHIR Schmitt Emergency Provider [phone] DO Pavel Yao Emergency Provider [phone] LOGAN Barrios Primary Care Provider DO Azra Farmer Emergency Provider [phone] MD Declan Marina Emergency Provider DO Ari Aguero Emergency Provider MD Eric Dooley Emergency Provider TAHIR Schmitt Emergency Provider [phone] DO Pavel Yao Emergency Provider MD Kanchan Sanchez Attending Provider Kanchan Sanchez Unavailable LOGAN Barrios Primary Care Provider DO Ari Aguero Emergency Provider MD Nguyễn Burrows Admit Provider MD Nguyễn Burrows Attending Provider Freda Clarke Unavailable Unavailable LOGAN Barrios Primary Care Provider DO Ari Aguero Emergency Provider MD Declan Marina Emergency Provider [phone] LOGAN Barrios Primary Care Provider MD Laura Impepe Attending Provider Diamante [place] Primary Care Physician Birgit COOPER Unavailable LOGAN Barrios Primary Care Provider DO Ari Aguero Emergency Provider Nini Miles Primary Care Provider LOGAN Barrios Primary Care Provider [phone] MD Kanchan Sanchez Attending Provider DO Ari Aguero Emergency Provider Diamante [place] Primary Care Provider [phone] TAHIR Schmitt Emergency Provider NINI MCCOLLUM Primary Care Unavailable ROSA ELENA HOWE Attending Unavailjeanine e LOGAN Barrios Primary Care Provider DO Pavel Yao Emergency Provider MD Samanta Castro Jr Emergency Provider DO Azra Farmer Emergency Provider Diamante [place] Primary Care Provider [phone] MD Gautam Burrows Attending Provider [phone] JOHN BarriosN Amanda Primary Care Provider DO Delvis Benz Emergency Provider MD Declan Marina Emergency Provider JoanaJOHNDesean Patel Primary Care Provider DO Azra Farmer Emergency Provider [phone] DO Delvis Benz Emergency Provider MD Declan Marina Emergency Provider MD Eric Dooley Emergency Provider DO Diane Paez Emergency Provider ROBUCK, Amanda E Attending Unavailable ROBUCK, Amanda E Attending Unavailable ROBUCK, Amanda E Attending Unavailable ROBUCK, Amanda E Attending Unavailable [place], Francisco Consulting Unavailable Azra HOGAN Admitting Unavailable Endy Raphael Attending Unavailable [place], Francisco Consulting Unavailable [place], Francisco Consulting Unavailable [place], Francisco Consulting Unavailable [place], Francisco Consulting Unavailable [place], Francisco Consulting Unavailable [place], Francisco Consulting Unavailable [place], Francisco Consulting Unavailable [place], Francisco Consulting Unavailable [place], Francisco Consulting Unavailable Azra HOGAN Admitting Unavailable Kam Rizzo Attending Unavailable [place], Francisco Consulting Unavailable [place], Francisco Consulting Unavailable [place], Francisco Consulting Unavailable [place], Francisco Consulting Unavailable [place], Francisco Consulting Unavailable [place], Francisco Consulting Unavailable [place], Francisco Consulting Unavailable [place], Francisco Consulting Unavailable Darren Guzman Attending Unavailable [...] Attending Unavailable Diamante [place] Primary Care Provider [phone] MD Gautam Burrows Attending Provider LOGAN Barrios Primary Care Provider MD Piyush Pace Admit Provider MD Piyush Pace Attending Provider Gautam Burrows Attending Unavailab le [place], Diamante L Primary Care Unavailable Gautam Burrows Admitting Unavailab Declan Victor Attending Unavailable Antwonjulio, Amanda Primary Care Unavailable [...] Yao Attending Unavailable Pavel Yao Admitting Unavailable Robjulio, Amanda Primary Care Unavailable Samanta Castro Jr Admitting Unavailable Samanta Castro Jr Attending Unavailable Robjulio, Amanda Primary Care Unavailable [place] Imad Attending Unavailable [place], Imad Admitting Unavailable Declan Marina Attending Unavailable Robjulio, Amanda Primary Care Unavailable Declan Marina Admitting Unavailable Robuck, Amanda Primary Care Unavailable Azra Farmer Attending Unavailable Azra Farmer Admitting Unavailable Robuck, Amanda Primary Care Unavailable Piyush Pace Attending Unavailable Piyush Pace Admitting Unavailable Robuck, Amanda Primary Care Unavailable Delvis Benz Admitting Unavailable Delvis Benz Attending Unavailable Robjulio, Amanda Primary Care Unavailable Eric Dooley Attending Unavailable Eric Dooley Admitting Unavailable Robuck, Amanda Primary Care Unavailable Azra Farmer Admitting Unavailable Azra Farmer Attending Unavailable Birgit Aiken Primary Care Physician Birgit Aiken Attending Unavailable Birgit Aiken Admitting Unavailable Eric Forbes Attending Unavailable Amanda BARRIOS Admitting Unavailable DO Kerry Linton Attending Unavailable Birgit Aiken Attending Unavailable Birgit Aiken Admitting Unavailable DoDO Kerry sheehan Attending Unavailable Allergies Allergy Classification Reported Allergen(s) Allergy Type Date of Onset Reaction(s) Facility Antihistamines (2 sources) hydrOXYzine; Translations: [Vistaril] Drug Allergy 4 [facility] Docusate (1 source) Docusate; Translations: [Colace] Drug Allergy [facility] Opioid Agonists (4 sources) Codeine; Translations: [codeine] Drug Allergy 4 Rash, Tachycardia [facility] [address] [facility] Work Phone: QUEtiapine (3 sources) QUEtiapine; Translations: [SEROquel TABS] Drug Allergy 4 Swelling [facility] Repository (9 sources) Bisacodyl Drug Allergy 7 Other (See Comments) [place], [place] (20 sources) Codeine; Translations: [codeine] Drug Allergy 7 Hives, Palpitations, Rash, Tachycardia, Red color (finding) [place], [place] (20 sources) QUEtiapine; Translations: [quetiapine] Drug Allergy 1 [facility] Work Phone: (1 source) Codeine Drug Allergy 7 [facility] Repository (1 source) Docusate Drug Allergy 7 [facility] Rep[facility] (10 sources) QUEtiapine; Translations: [SEROquel] Drug Allergy [facility] Rep[facility] (20 sources) QUEtiapine Drug Allergy 3 [facility] (20 sources) hydrOXYzine; Translations: [hydroxyzine] Drug Allergy 3 Palpitations, Anxiety [facility] (9 sources) Docusate; Translations: [Colace] Drug Allergy [facility] Medications Current Medications Medication Drug Class(es) Dates Sig (Normalized) Sig (Original) acetaminophen 325 mg oral tablet (14 sources) Start: 2023 take 2 tablets by [...] Once, # 2 tab(s), Refills(s) 0, Pharmacy: [facility] #37, 157, cm, 11/30/22 13:33:00 EDT, Height/Length [...] 10:18am Start: 01-14-2019 [facility] as needed busPIRone HCl - 10 MG Oral Tablet TAKE 1 TABLET 3 times daily PRN Quantity: 270 Refills: 0 Wolf SHARK BIOLOGIST-SYSTEMS INTEGRATOR, Nini Start : 14-Jan-2019 Active busPIRone Quanti ty: 0 Refills: 0 Ordered: 20-Mar-2019 Edwin Lujan Status: Other Generic Substitution Allowed cariprazine 1.5 mg oral capsule (6 sources) Atypical Antipsychotic Start: 12-15-2022 caripra zine (Vraylar) capsule 1.5 mg Start: 03-28-2022 take 1 capsule by mo [facility] once daily Vraylar 1.5 mg oral capsule 1.5 mg = 1 cap(s), Oral, Daily, # 30 cap(s), Refills(s) 0, [id number] 157.5, cm, 03/28/22 13:50:00 EST, Height/Length Dosing, 79.1, kg, 03/28/22 13:50:00 EST, Weight Dosing Start Date: 03/28/22 Status: Ordered Start: 07-04-2021 take 1 capsule by mo [facility] once daily Vraylar 1.5 mg oral capsule 1.5 mg = 1 cap(s), Oral, Daily, # 30 cap(s), Refills(s) 0, Pharmacy: [facility] #14, 157, cm, 07/04/21 15:06:00 EDT, Height/Length Dosing, 84.8, kg, 07/04/21 15:10:00 EDT, Weight Dosing Start Date: 07/04/21 Status: Ordered cephalexin 500 mg oral capsule (20 sources) Cephalosporin Antibacterial Start: 06-03-2023 End: 06-10-2023 take 1 capsule by mouth every six hours Keflex 500 mg Cap 500 mg = 1 cap(s), Oral, q6hr, X 7 day(s), # 28 cap(s), Refills(s) 0, Pharmacy: [facility] #37, 154, cm, 06/03/23 20:33:00 EDT, Height/Length Dosing, 71.8, kg, 06/03/23 20:33:00 EDT, Weight Dosing Start Date: 06/03/23 Stop Date: 06/10/23 Status: Ordered Start: 10-02-2021 End: 10-09-2021 take 1 capsule by mouth every eight hours cephalexin 500 mg Cap 500 mg = 1 cap(s), Oral, q8hr, X 7 day(s), # 21 cap(s), Refills(s) 0, Pharmacy: [facility] #[id number], 157, cm, 09/19/21 10:21:00 EDT, Height/Length Dosing, [...] HOURS NEEDED. Quantity: 60 Refills: 0 Wolf SHARK BIOLOGIST-SYSTEMS INTEGRATOR, Nini Start : 15-Oct-2019 Active take 1 [...] BID, # 60 tab(s), Refills(s) 0, Pharmacy: [facility] #37, 154.9, cm, 01/06/23 23:41:00 EST, Height/Length Dosing, 73.1, kg, 01/06/23 23:41:00 EST, Weight Dosing Start Date: 02/07/23 Status: Ordered Start: 08-16-2022 take 1 tablet by man th twice daily cloNIDine 0.1 mg tab 0.1 mg = 1 tab(s), Oral, BID, # 60 tab(s), Refills(s) 11, Pharmacy: [facility] #37, 157, cm, 08/15/22 13:49:00 EDT, Height/Length [...] bedtime), # 60 tab(s), Refills(s) 0, Pharmacy: [facility] #[id number], 157, cm, 09/19/21 10:21:00 EDT, Height/Length Dosing, 86, kg, 09/19/21 10:21:00 EDT, Weight Dosing Start Date: 09/19/21 Status: Ordered fluconazole 150 mg oral tablet (20 sources) Azole Antifungal Start: 06-17-2023 take 1 tablet by mouth once Diflucan 150 mg Tab 150 mg = 1 tab(s), Oral, Once, # 1 tab(s), Refills(s) 0, Pharmacy: [facility] #37, 156, cm, 06/17/23 15:35:00 EDT, Height/Length [...] tablet, # 1 tab(s), Refills(s) 1, [facility]acy: [id number], 157, cm, 09/19/21 10:21:00 EDT, Height/Length Dosing, [...] Discontinued 800 MG PO Three times daily 90 April 19, 2021 1:03pm August 13, 2021 [...] anxiety, # 30 cap(s), Refills(s) 0, Pharmacy: [facility] #37, 158, cm, 11/04/22 12:27:00 EDT, Height/Length [...] 11:48am Start: 08-13-2022 take 1 tablet by [facility] four times daily as needed for anxiety hydrOXYzine hydrochloride 50 mg oral tablet 50 mg = 1 tab(s), Oral, QID, PRN for anxiety, # 40 tab(s), Refills(s) 0, Pharmacy: [facility] #37, 157.5, cm, 08/13/22 13:00:00 EDT, Height/Length [...] day(s), # 9 tab(s), Refills(s) 0, Pharmacy: [facility] #37, 157, cm, 08/29/23 22:55:00 EDT, Height/Length Dosing, 77.9, kg, 08/29/23 22:55:00 EDT, Weight Dosing Start Date: 08/30/23 Stop Date: 09/02/23 Status: Ordered Start: 12-16-2022 LORazepam (Ati van) tablet 1 mg Start: 12-15-2022 LORazepam (Ati van) tablet 2 mg Start: 12-12-2022 take 1 tablet by man every four hours as needed LORazepam (Ativan) [...] day(s), # 12 tab(s), Refills(s) 0, Pharmacy: [facility] #37, 157, cm, 12/10/22 8:08:00 EDT, Height/Length [...] Start: 03-15-2020 take 1 tablet by man twice daily as needed for anxiety LORazepam 0.5 MG Oral Tablet TAKE 1 TABLET Twice daily PRN anxiety Quantity: 60 Refills: 0 Ingris SHARK BIOLOGIST-SYSTEMS INTEGRATOR, Nini Start : 15-Mar-2020 Active Start: 03-10-2020 [...] day(s), # 21 tab(s), Refills(s) 0, Pharmacy: [facility], 165, cm, 08/16/22 23:50:00 EDT, [...] day(s), # 14 tab(s), Refills(s) 0, Pharmacy: [facility] #37, 156, cm, 07/14/23 11:03:00 EDT, Height/Length [...] day(s), # 14 cap(s), Refills(s) 0, Pharmacy: [facility] #[id number], 157, cm, 09/19/21 10:21:00 EDT, Height/Length Dosing, [...] do not open, crush, dissolve, or chew [place] (No Known Home Meds) (1 source) Start: 04-06-2023 [place] (No Known Home Meds) Active April 06, 2023 12:00am nystatin [id number] unt/ml oral suspension (1 source) Polyene Antifungal [...] discomfort, # 60 tab(s), Refills(s) 1, Pharmacy: [facility] #37, 157.5, cm, 08/13/22 13:00:00 EDT, Height/Length Dosing, 72.9, kg, 08/13/22 13:00:00 EDT, Weight Dosing Start Date: 08/13/22 Status: Ordered 24 hr paliperidone 3 mg extended release oral tablet (15 sources) Atypical Antipsychotic Start: 01-02-2023 take 1 [...] day(s), # 9 tab(s), Refills(s) 0, Pharmacy: [facility] #37, 156, cm, 07/14/23 11:03:00 EDT, Height/Length [...] with food or milk. polyethylene glycol 3350 87736 mg powder for oral solution (1 source) Osmotic Laxative Start: 07-27-19 End: 08-10-19 take 17 g by mouth once daily MiraLax 3350 Oral Pwdr for Recon 249 gram 17 gm, Oral, Daily, X 14 day(s), # 255 gm, Refills(s) 0, [facility] [place] [id number] [facility], 157, cm, 07/04/21 15:06:00 EDT, Height/Length Dosing, 84, kg, 07/26/21 18:15:00 EDT, Weight Dosing Start Date: 07/26/21 Stop Date: 08/09/21 Status: Ordered predniSONE 20 mg oral tablet (20 sources) Start: 08-29-19 End: 09-03-19 take 2 tablets by mouth once daily predniSONE 20 mg Tab 40 mg = 2 tab(s), Oral, Daily, X 5 day(s), # 10 tab(s), Refills(s) 0, Pharmacy: [facility] #37, 165, cm, 08/28/22 9:51:00 EDT, Height/Length [...] Substitution Allowed take 1 tablet by man twice daily Propranolol HCl - 40 MG [...] 13, 2020 2:22pm Therapeutic Multiple Vitamin Tab (14 sources) Start: 2023 Therapeutic Mu ltiple Vitamin [...] bedtime), # 30 tab(s), Refills(s) 5, Pharmacy: [facility] #[id number], 157.5, cm, 10/06/21 16:25:00 EDT, Height/Length Dosing, 83.1, kg, 10/06/21 16:25:00 EDT, Weight Dosing Start Date: 01/02/22 Status: Ordered Start: 07-04-2021 take 1 tablet by man th once daily at bedtime traZODONE 100 mg Tab 100 mg = 1 tab(s), Oral, Once a day (at bedtime), # 90 tab(s), Refills(s) 0, Pharmacy: [facility] #14, 157, cm, 07/04/21 15:06:00 EDT, Height/Length [...] Daily, # 30 cap(s), Refills(s) 0, Pharmacy: [facility], 157, cm, 07/04/21 15:06:00 EDT, Height/Length Dosing, 84, kg, 07/26/21 18:15:00 EDT, Weight Dosing Start Date: 08/25/21 Status: Ordered Start: 07-04-2021 take 1 capsule by mo [facility] once daily Effexor XR 150 mg Cap-ER 150 mg = 1 cap(s), Oral, Daily, # 90 cap(s), Refills(s) 1, Pharmacy: [facility] #14, 157, cm, 07/04/21 15:06:00 EDT, Height/Length [...] 11:49am Start: 06-02-2020 take 1 tablet by man once daily Venlafaxine HCl - 37.5 MG [...] Start: 10-23-2018 take 1 capsule by mo ut once daily venlafaxine (EFFEXOR XR) 37.5 MG [...] 2023 12:00am Zofran ODT 4 mg Tab-Dis (11 sources) Start: 06-03-2023 take 1 tablet by mouth every eight hours as needed for nausea Zofran ODT 4 mg Tab-Dis 4 mg = 1 tab(s), Oral, q8hr, PRN Nausea/Vomiting, # 12 tab(s), Refills(s) 0, Pharmacy: [facility] #37, 154, cm, 06/03/23 20:33:00 EDT, Height/Length Dosing, 71.8, kg, 06/03/23 20:33:00 EDT, Weight Dosing Start Date: 06/03/23 Status: Ordered Completed/Discontinued Medications Medication Drug Class(es) Dates Sig (Normalized) Sig (Original) acetaminophen 325 mg / HYDROcodone bitartrate 5 mg oral tablet (20 sources) Opioid Agonist Start: 01-25-2017 End: 08-07-2018 take 1 tablet by mouth every four to six hours Hydrocodone-Aceta minophen ([place]) 5-325 mg tablet Discontinued 1 TAB PO [...] PRN SOB/WHEEZING Quantity: 1 Refills: 5 Wolf MOHANNini Start : 20-May-2019 Active 6.7 GM Inhaler [...] PO Twice daily 10 January 25, 2017 1:00am January 30, 2017 1:03am ARIPiprazole 10 mg oral tablet (4 sources) Atypical Antipsychotic Start: 03-15-2020 take 1 tablet by mouth once daily ARIPiprazole 10 MG Oral Tablet TAKE 1 TABLET DAILY. Quantity: 90 Refills: 0 Ingris MOHANNini Start : 15-Mar-2020 Active Start: 04-17-2019 take 1 tablet by man th once daily ARIPiprazole 20 MG Oral Tablet TAKE 1 TABLET DAILY. Quantity: 90 Refills: 3 Ingris PRESTONNini Start : 17-Apr-2019 Active brompheniramine maleate 0.4 mg/ml / dextromethorphan hydrobromide 2 mg/ml / pseudoephedrine hydrochloride 6 mg/ml oral solution (1 source) alpha-Adrenergic Agonist, Uncompetitive I-pbckcz-F-aspartate Receptor Antagonist, Sigma-1 Agonist Start: 04-04-2020 End: 04-13-2020 take 5 mL by mouth every four to six hours brompheniramine/pseudoephedrine/dextrome thorphan [id number]/5 mL oral syrup ; 5 milliliter(s) orally [...] PO Every 6 hours March 19, 2022 1:00April 01, 2022 7:13pm do not exceed 4 [...] daily Levothyroxine Discontinued 112 MCG PO DAILY@0630 April 19, 2021 1:03pm July 26, 2021 [...] daily Quantity: 90 Refills: 0 Ordered: 15-Jul-2020 Ingris LOPEZN-FREDDY, Nini Active Multiple Vitamin (MULTI-VITAMINS) TABS (2 sources) [...] day(s), # 20 tab(s), Refills(s) 0, Pharmacy: [facility] #37, 155, cm, 01/05/23 1:00:00 EST, Height/Length [...] nausea, # 10 tab(s), Refills(s) 0, Pharmacy: [facility] #37, 157, cm, 12/10/22 8:08:00 EDT, [...] 10-11-2022 Immunizations and screening for infectious disease (20 sources) Exposure to sexually transmissible disorder; Translations: [...] examination] Episodic Other aftercare (1 source) Other snf (current) drug therapy; Translations: [OTH SYSTEM SUPPORT SPECIALIST CURRENT DRUG THERAPY] Onset: 07-31-2021 Episodic Other [...] Test Name Value Interpretation Reference Range Facility CBC w/ Auto Diffon 4 Basophils/100 WBC (Bld) 0.7 % Normal 0.0-2.0 [facility] Comment on above: Performed By: #### 2 [id number] #### [facility] [address] [place] [address] Basophils/Leukocytes Auto (Bld) [Pure # fraction] 0.0 E9/L Normal 0.0-0.2 [facility] Comment on above: Performed By: #### 2 [id number] #### [facility] [address] [place] [address] Eosinophils (Bld) [#/Vol] 0.1 E9/L Normal 0.0-0.5 [facility] Comment on above: Performed By: #### 2 [id number] #### [facility] [address] [place] [address] Eosinophils/100 WBC (Bld) 1.4 % Normal 0.0-8.0 [facility] Comment on above: Performed By: #### 2 [id number] #### [facility] [address] [place] [address] Erythrocyte distribution width (RBC) [Ratio] 14.1 % Normal 10.9-14.2 [facility] Comment on above: Performed By: #### 2 [id number] #### [facility] [address] [place] [address] Hematocrit (Bld) [Volume fraction] 34.1 % Normal 34.0-46.0 [facility] Comment on above: Performed By: #### 2 [id number] #### [facility] [address] [place] [address] Hemoglobin (Bld) [Mass/Vol] 12.1 g/dL Normal 12.0-16.0 [facility] Comment on above: Performed By: #### 2 [id number] #### [facility] [address] [place] [address] Lymphocytes (Bld) [#/Vol] 1.4 E9/L Normal 1.0-4.0 [facility] Comment on above: Performed By: #### 2 [id number] #### [facility] [address] [place] [address] Lymphocytes/100 WBC (Bld) 27.6 % Normal 14.0-50.0 [facility] Comment on above: Performed By: #### 2 [id number] #### [facility] [address] [place] [address] MCH (RBC) [Entitic mass] 35.9 pg High 27.0-34.0 [facility] Comment on above: Performed By: #### 2 [id number] #### [facility] [address] [place] [address] MCHC (RBC) [Mass/Vol] 35.7 g/dL Normal 31.4-36.0 [facility] Comment on above: Performed By: #### 2 [id number] #### [facility] [address] [place] [address] MCV (RBC) [Entitic vol] 100.7 fL High 80.0-100.0 [facility] Comment on above: Performed By: #### 2 [id number] #### [facility] [address] [place] [address] Monocytes (Bld) [#/Vol] 0.5 E9/L Normal 0.2-1.0 [facility] Comment on above: Performed By: #### 2 [id number] #### [facility] [address] [place] [address] Neutrophils (Bld) [#/Vol] 3.2 E9/L Normal 2.0-7.5 [facility] Comment on above: Performed By: #### 2 [id number] #### [facility] [address] [place] [address] Neutrophils/100 WBC (Bld) 60.9 % Normal 36.0-75.0 [facility] Comment on above: Performed By: #### 2 [id number] #### [facility] [address] [place] [address] Platelet 120.0 E9/L Low 150.0-500.0 [facility] Comment on above: Performed By: #### 2 [id number] #### [facility] [address] [place] [address] Platelet mean volume (Bld) [Entitic vol] 8.7 fL Normal 6.4-10.8 [facility] Comment on above: Performed By: #### 2 [id number] #### [facility] [address] [place] [address] RBC (Bld) [#/Vol] 3.4 E12/L Low 4.3-5.9 [facility] Comment on above: Performed By: #### 2 [id number] #### [facility] [address] [place] [address] WBC corrected for nucl RBC Auto (Bld) [#/Vol] 5.2 E9/L Normal 4.0-11.0 [facility] Comment on above: Performed By: #### 2 [id number] #### [facility] [address] [place] [address] CHEMISTRYOrdered By: SYSTEM SYSTEM on 08-30-2023 Albumin [Mass/Vol] 3.8 g/dL Normal 3.3 - 5.0 gm/dL Remisol Chem Albumin/Globulin [Mass ratio] 1.1 {ratio} Normal 1.1 - 2.2 [facility] ALP [Catalytic activity/Vol] 112 [iU]/d High 21 - 98 Int._Unit/L Rem[facility] Chem ALT No additional P-5'-P [Catalytic activity/Vol] 59 [iU]/d High 6 - 46 Int._Unit/L [facility] Anion gap [Moles/Vol] 13 mmol/L Normal 6 - 16 mEq/L R emisol Chem AST [Catalytic activity/Vol] 96 [iU]/d High 5 - 43 Int._Unit/L [facility] Bilirubin [Mass/Vol] 1.2 mg/dL High 0.0 - 1 .1 mg/dL [facility] Calcium [Mass/Vol] 9.2 mg/dL Normal 8.9 - 11. 1 mg/dL [facility] Chloride [Moles/Vol] 105 mmol/L Normal 101 - 1 11 mmol/L [facility] CO2 [Moles/Vol] 22 mmol/L Normal 21 - 31 mmol/L [facility] Creatinine [Mass/Vol] 0.5 mg/dL Normal 0.5 - 1.3 mg/dL [facility] eGFR 128 mL/min/1.73 m2 Normal >=59mL/mi n/1 .73 m2 [facility] Ethanol Lvl mg/dL Normal <=11mg/dL [facility] Globulin (S) [Mass/Vol] 3.6 g/dL Normal 1.4 - 4.0 gm/dL [facility] Glucose [Mass/Vol] 96 mg/dL Normal 55 - 199 mg/dL [facility] Potassium [Moles/Vol] 4.1 mmol/L Normal 3.5 - 5.3 mmol/L [facility] Protein [Mass/Vol] 7.4 g/dL Normal 6.0 - 7.8 gm/dL [facility] Sodium [Moles/Vol] 136 mmol/L Normal 135 - 145 mmol/L [facility] Urea nitrogen [Mass/Vol] 6 mg/dL Normal 5 - 21 mg/dL [facility] Urea nitrogen/Creatinine [Mass ratio] 12 mg/mg Normal 10 - 20 [facility] CMPon 08-30-2023 Albumin [Mass/Vol] 3.8 g/dL Normal 3.3-5.0 [facility] Comment on above: Performed By: #### 2 [id number] #### [facility] [address] [place] [address] Albumin/Globulin (S) [Mass conc ratio] 1.1 Normal 1.1-2.2 [facility] Comment on above: Performed By: #### 2 [id number] #### [facility] [address] [place] [address] ALP [Catalytic activity/Vol] 112 Int._Unit/L High 21-98 [facility] Comment on above: Performed By: #### 2 [id number] #### [facility] [address] [place] [address] ALT No additional P-5'-P [Catalytic activity/Vol] 59 Int._Unit/L High 6-46 [facility] Comment on above: Performed By: #### 2 [id number] #### [facility] [address] [place] [address] Anion gap [Moles/Vol] 13 mmol/L Normal 6-16 [facility] Comment on above: Performed By: #### 2 [id number] #### [facility] [address] [place] [address] AST [Catalytic activity/Vol] 96 Int._Unit/L High 5-43 [facility] Comment on above: Performed By: #### 2 [id number] #### [facility] [address] [place] [address] Bilirubin [Mass/Vol] 1.2 mg/dL High 0.0-1.1 [facility] Comment on above: Performed By: #### 2 [id number] #### [facility] [address] [place] [address] Calcium [Mass/Vol] 9.2 mg/dL Normal 8.9-11.1 [facility] Comment on above: Performed By: #### 2 [id number] #### [facility] [address] [place] [address] Chloride [Moles/Vol] 105 mmol/L Normal 101-111 [facility] Comment on above: Performed By: #### 2 [id number] #### [facility] [address] [place] [address] CO2 [Moles/Vol] 22 mmol/L Normal 21-31 [facility] Comment on above: Performed By: #### 2 [id number] #### [facility] [address] [place] [address] Creatinine [Mass/Vol] 0.5 mg/dL Normal 0.5-1.3 [facility] Comment on above: Performed By: #### 2 [id number] #### [facility] [address] [place] [address] Globulin (S) [Mass/Vol] 3.6 g/dL Normal 1.4-4.0 [facility] Comment on above: Performed By: #### 2 [id number] #### [facility] [address] [place] [address] Glucose [Mass/Vol] 96 mg/dL Normal 55-199 [facility] Comment on above: Performed By: #### 2 [id number] #### [facility] [address] [place] [address] Potassium [Moles/Vol] 4.1 mmol/L Normal 3.5-5.3 [facility] Comment on above: Performed By: #### 2 [id number] #### [facility] [address] [place] [address] Protein [Mass/Vol] 7.4 g/dL Normal 6.0-7.8 [facility] Comment on above: Performed By: #### 2 [id number] #### [facility] [address] [place] [address] Sodium [Moles/Vol] 136 mmol/L Normal 135-145 [facility] Comment on above: Performed By: #### 2 [id number] #### [facility] [address] [place] [address] Urea nitrogen [Mass/Vol] 6 mg/dL Normal 5-21 [facility] Comment on above: Performed By: #### 2 [id number] #### [facility] [address] [place] [address] Urea nitrogen/Creatinine [Mass ratio] 12 No Units Normal 10-20 [facility] Comment on above: Performed By: #### 2 [id number] #### [facility] [address] [place] [address] ED Clinical Summaryon 2023 ED Clinical Summary ED Clinical Summary [address] [address] ED Clinical Summary Person Information Name: LYLE BAILEY T [place] Age: 33 Years : 1990 Sex: Female Language: Palestinian PCP: Birgit Aiken MD Marital Status: Single Visit Id: Visit Reason: Alcohol withdrawal; Anxiety; VERY ANXIOUS Speciality: Acuity: 2 Enc Type: Emergency Med Service: Emergency Arrival: 08/29/2023 22:33:51 Discharge: 08/30/2023 01:36:42 LOS: 000 03:03 Checkin: 08/29/2023 22:33:51 Checkout: 08/30/2023 01:36:42 Dispo Type: Home (Routine DC) EVENTS: Event Name Event Status Request Date/Time Start Date/Time Complete Date/Time Arrive Complete 08/29/2023 22:33:51 08/29/2023 22:33:51 08/29/2023 22:33:51 Document Home Meds Request 08/29/2023 22:33:51 Triage Complete 08/29/2023 22:33:51 08/29/2023 22:55:58 08/29/2023 22:55:58 Registration Complete 08/29/2023 22:39:38 08/29/2023 22:39:38 08/29/2023 22:39:38 Reg Complete Request 08/29/2023 22:39:38 Reg Bed Request Complete 08/29/2023 22:39:38 08/29/2023 22:39:38 08/29/2023 22:39:38 Dr Exam Complete 08/29/2023 22:53:46 08/29/2023 22:53:46 08/29/2023 22:53:46 Registration Start 08/29/2023 22:53:46 08/29/2023 22:56:23 Bed Assign Complete 08/29/2023 22:56:23 08/29/2023 22:56:23 08/29/2023 22:56:23 RN Exam Complete 08/29/2023 22:56:23 08/29/2023 23:33:26 08/29/2023 23:33:26 Pending Labs Request 08/29/2023 23:21:28 Lab Request 08/29/2023 23:21:28 Urine Collect Request 08/29/2023 23:21:28 Meds Admin Complete 08/29/2023 23:21:28 08/29/2023 23:53:04 Patient Care Request 08/29/2023 23:21:28 Pending Labs Complete 08/30/2023 00:10:10 08/30/2023 00:10:10 08/30/2023 00:58:11 Lab Complete 08/30/2023 00:10:10 08/30/2023 00:10:10 08/30/2023 00:58:11 Meds Admin Complete 08/30/2023 01:15:16 08/30/2023 01:32:37 Discharge Complete 08/30/2023 01:17:01 08/30/2023 01:36:46 08/30/2023 01:36:46 Transfer Complete 08/30/2023 01:36:46 08/30/2023 01:36:46 08/30/2023 01:36:46 ADDRESS: [address] [place] [id number] PHYS DOC NOTES: MEDICAL INFORMATION: Prescriptions Given: New Medications [id number], [address] [place], [place] [id number], [phone] lorazepam (Ativan 1 mg Tab) 1 Tablets By Mouth 3 times a day as needed for anxiety for 3 Days. Refills: 0. Medications to Continue with No Changes Other [...] a day. PATIENT EDUCATION INFORMATION: Instructions: Alcohol Withdrawal Syndrome, [id number] Follow up: With: Address: When: Chemical Dependency: In 3 days 09/02/2023 Comments: you can use Ativan every 8 hours as needed for your symptoms. Please follow-up with your primary care doctor and chemical dependency for further evaluation management. Return to the ED for any new or worsening symptoms. With: Address: When: Birgit Aiken [address] [place], [place] [id number] Business (1) In 3 days DIAGNOSIS: Alcohol abuse with withdrawal Normal [facility] ED Note-Physicianon 08-30-19 ED Note-Physician ED Note-Physician Basic Information Time Seen: Royer Kerry 08/29/2023 22:53 Chief Complaint Pt to ED with mother for increased anxiety, increased HR, and delusions. Pt states stopped drinking 3 days ago and has been having symptoms since. Pt states 14 twisted teas a day prior to quiting. Saw PCP today. Clonidine 0.01 mg x2 QUALITY ASSURANCE MONITOR History of Present Illness Patient is a 33-year-old female with past medical history of drug abuse, alcohol abuse presenting to the ED for evaluation of increased anxiety, alcohol withdrawal. Patient states she started drinking 3 days ago started having hallucinations tachycardia and anxiety. Patient states this normally happen when she tries to quit on day 3-4, states normally she is able to get control of at home however states that symptoms are progressively worsening today prompting her to come to the ED. Patient denies any suicidal or homicidal ideation. Patient is not interested in mental health or rehab referral. Review of Systems A 10 point review of systems is negative except as noted above. Medical and Surgical History: Reviewed and noted Social history: Lives at home Tobacco: Denies Physical Exam Vitals & Measurements T: 36.6 ?C(Oral) HR: 84(Peripheral) RR: 20 BP: 150/110 SpO2: 99% HT: 157 cm WT: 77.9 kg BMI: 31.6 General: Well developed, non toxic appearing, no acute distress HEENT: Head atraumatic, Mucosa moist, hearing grossly normal Neck: No JVD, tracheal deviation Cardiac: Regular rate, rhythm, no murmurs, or gallops, 2+ radial pulses Respiratory: Lungs clear to auscultation B/L, normal respiratory effort Abdomen: Soft non tender, no rebound or guarding, no peritoneal signs Extremities: No edema noted in the LE B/L, no tenderness to palpation Neurologic: Alert and oriented, speech clear Skin: No rashes or lesions Psych: Appropriate mood and behavior Medical Decision Making MEDICAL DECISION MAKING Number and Complexity of Problems Differential Diagnosis: [] [facility] Data External documents reviewed: [] My EKG interpretation: [] My CT interpretation: [] My X-ray interpretation: [] My Ultrasound interpretation: [] Decision rules/scores evaluated: [] Discussed with: [] Treatment and Disposition ED Course: Patient is a 33-year-old female presenting to the ED for evaluation of hallucinations, anxiety, alcohol withdrawal. Patient is nontoxic and on arrival, no acute distress. CIWA on initial arrival is 2. Laboratory evaluation is obtained, patient is given oral Ativan for treatment of her symptoms. Laboratory evaluation is unremarkable at baseline for patient. On reevaluation patient is feeling improved. She is comfortable with discharge home. She was just given a short course of Ativan for treatment of her alcohol withdrawal she was offered again referral to rehab services however patient declined. She is to follow-up with her primary care doctor next 2 to 3 days. She is to return to ED for any new or worsening symptoms. Shared decision making: [] Code status: [] Assessment/Plan Alcohol abuse with withdrawal (F10.139: Alcohol abuse with withdrawal, unspecified) Orders: lorazepam, 1 mg = 1 tab(s), Tab, Oral, Once, Stop date 08/30/23 1:15:00 EDT, STAT, Start date 08/30/23 1:15:00 EDT, 08/30/23 1:15:00 EDT lorazepam, 1 mg = 1 tab(s), Oral, TID, PRN for anxiety, X 3 day(s), # 9 tab(s), Refills(s) 0, Pharmacy: [id number], 157, cm, 08/29/23 22:55:00 EDT, Height/Length Dosing, 77.9, kg, 08/29/23 22:55:00 EDT, Weight Dosing lorazepam, 2 mg = 2 tab(s), Tab, Oral, Once, Stop date 08/29/23 23:21:00 EDT, STAT, Start date 08/29/23 23:21:00 EDT, 08/29/23 23:21:00 EDT CBC w/ Auto Diff Communication Order Comprehensive Metabolic Panel Drug Screen Urine eGFR Ethanol Level U Beta Hcg Qual Medications Administered Given LORazepam 1 mg Tab, 2 mg, Oral Disposition Plan Discharge Prescription List Prescriptions Ativan 1 mg Tab, 1 mg= 1 tab(s), Oral, TID, PRN Follow-up With When Contact Information Chemical Dependency: In 3 days 09/02/2023 EDT Additional Instructions: you can use Ativan every 8 hours as needed for your symptoms. Please follow-up with your primary care doctor and chemical dependency for further evaluation management. Return to the ED for any new or worsening symptoms. Birgit Aiken In 3 days [address] [facility] [place] [phone]- Business (1) Additional Instructions: Patient Education Alcohol Withdrawal Syndrome, Hnnb-ev-Evll Problem List/Past Medical History Ongoing Alcohol abuse Bipolar depression BMI 29.0-29.9,adult Dysuria Hepatitis B Hepatitis C History of drug abuse Hyperhidrosis Lower extremity neuropathy Overweight Smoker Sore throat STD exposure UTI (urinary tract infection), uncomplicated Historical Group B streptococcus Smoker.. Yeast vaginitis Procedure/Surgical History None. M (more content not included)... Normal [facility] Comment on above: Result Comment: Elec tronically Signed By: Kerry Linton DO\.br\Date and Time Signed: 08/30/23 01:41 EDT ED Patient Summaryon 024 ED Patient Summary ED Patient Summary [address] [address] Patient Discharge Instructions Person Information Name: LYLE BAILEY Age: 33 Years Arrival Date: 08/29/2023 22:33:51 Discharge Diagnosis: Alcohol abuse with withdrawal Primary Care Physician: Birgit Aiken MD Provider Information Primary Provider: Kerry Linton DO Advanced Software Packager:None The exam and treatment you received in the Emergency Department were for an urgent problem and are not intended as complete care. It is important that you follow up with a doctor, nurse practitioner, or physician?s investment sales assistant for ongoing care. If your symptoms become worse or you do not improve as expected and you are unable to reach your usual health care provider, you should return to the Emergency Department. We are available 24 hours a day. LYLE BAILEY has been given the following list of patient education materials, prescriptions and follow-up instructions: Follow-up Instructions: With: Address: When: Chemical Dependency: In 3 days 09/02/2023 Comments: you can use Ativan every 8 hours as needed for your symptoms. Please follow-up with your primary care doctor and chemical dependency for further evaluation management. Return to the ED for any new or worsening symptoms. With: Address: When: Birgit Aiken [address] [place] [address]., [address] [place] [phone] [facility] (1) In 3 days In the event that this physician does not participate in your insurance network, please consult with your insurance company to find a nearby participating provider. Patient Education Materials: Alcohol Withdrawal Syndrome, Yxdv-xy-Bera A MESSAGE TO ALL PATIENTS REGARDING OPIOIDS PRESCRIPTION OPIOIDS: WHAT YOU NEED TO KNOW Prescription opioids can be used to help relieve kldrrubr-lc-moqxdl pain and are often prescribed following a [...] flush them down the toilet, following guidance (more content not included)... Normal [facility] Ethanolon 08-30-2023 Ethanol Lvl <10 Normal <=11 [facility] Comment on above: Performed By: #### 2 [id number] #### [facility] [address] [place] [address] HEMATOLOGYOrdered By: SYSTEM SYSTEM on 08-30-2023 Basophils/100 WBC (Bld) 0.7 % Normal 0.0 - 2.0 % Remisol Heme Basophils/Leukocytes Auto (Bld) [Pure # fraction] 0.0 E9/L Normal 0.0 - 0.2 E9/L [facility]e Eosinophils (Bld) [#/Vol] 0.1 E9/L Normal 0.0 - 0.5 E9/L [facility] Eosinophils/100 WBC (Bld) 1.4 % Normal 0.0 - 8.0 % Remisol Heme Erythrocyte distribution width (RBC) [Ratio] 14.1 % Normal 10.9 - 14.2 % Rem[facility] Heme Hematocrit (Bld) [Volume fraction] 34.1 % Normal 34.0 - 46.0 % Rem[facility] Heme Hemoglobin (Bld) [Mass/Vol] 12.1 g/dL Normal 12.0 - 16.0 gm/dL [facility] Lymphocytes (Bld) [#/Vol] 1.4 E9/L Normal 1.0 - 4.0 E9/L [facility] Lymphocytes/100 WBC (Bld) 27.6 % Normal 14.0 - 50.0 % Remisol Heme MCH (RBC) [Entitic mass] 35.9 pg High 27.0 - 34.0 pg Remisol Heme MCHC (RBC) [Mass/Vol] 35.7 g/dL Normal 31.4 - 36.0 gm/dL Remisol Heme MCV (RBC) [Entitic vol] 100.7 fL High 80.0 - 100.0 fL [facility] Heme Monocytes (Bld) [#/Vol] 0.5 E9/L Normal 0.2 - 1.0 E9/L Rem[facility] Heme Monocytes/100 WBC (Bld) 9.4 % Normal 4.0 - 14.0 % Remisol Heme Neutrophils (Bld) [#/Vol] 3.2 E9/L Normal 2.0 - 7.5 E9/L [facility] Heme Neutrophils/100 WBC (Bld) 60.9 % Normal 36.0 - 75.0 % Remisol Heme Platelet 120.0 E9/L Low 150.0 - 500.0 E9/L [facility] Heme Platelet mean volume (Bld) [Entitic vol] 8.7 fL Normal 6.4 - 10.8 fL Rem[facility] Heme RBC (Bld) [#/Vol] 3.4 E12/L Low 4.3 - 5.9 E12/L [facility] WBC corrected for nucl RBC Auto (Bld) [#/Vol] 5.2 E9/L Normal 4.0 - 11.0 E9/L [facility] eGFRon 08-30-2023 eGFR 128 mL/min/1.73 m2 Normal >=59 [facility] Comment on above: Order Comment: Order added by Discern Expert. Performed By: #### 1 [id number] #### [facility] [address] [place] [address] BMPon 08-29-2023 Creatinine [Mass/Vol] 0.5 mg/dL Normal 0.5-1.3 [facility] Comment on above: Performed By: #### 2 [id number] #### [facility] [address] [place] [address] Glucose [Mass/Vol] 93 mg/dL Normal 55-199 [facility] Comment on above: Performed By: #### 2 [id number] #### [facility] [address] [place] [address] Urea nitrogen [Mass/Vol] 8 mg/dL Normal 5-21 [facility] Comment on above: Performed By: #### 2 [id number] #### [facility] [address] [place] [address] Urea nitrogen/Creatinine [Mass ratio] 16 No Units Normal 10-20 [facility] Comment on above: Performed By: #### 2 [id number] #### [facility] [address] [place] [address] Anion gap [Moles/Vol] 13 mmol/L Normal 6-16 [facility] Comment on above: Performed By: #### 2 [id number] #### [facility] [address] [place] [address] Calcium [Mass/Vol] 9.1 mg/dL Normal 8.9-11.1 [facility] Comment on above: Performed By: #### 2 225491 #### [facility] [address] [place] [address] Chloride [Moles/Vol] 103 mmol/L Normal 101-111 [facility] Comment on above: Performed By: #### 2 [id number] #### [facility] [address] [place] [address] CO2 [Moles/Vol] 22 mmol/L Normal 21-31 [facility] Comment on above: Performed By: #### 2 [id number] #### [facility] [address] [place] [address] Potassium [Moles/Vol] 3.9 mmol/L Normal 3.5-5.3 [facility] Comment on above: Performed By: #### 2 [id number] #### [facility] [address] [place] [address] Sodium [Moles/Vol] 134 mmol/L Low 135-145 [facility] Comment on above: Performed By: #### 2 [id number] #### [facility] [address] [place] [address] CBC w/Indiceson 08-29-2023 Erythrocyte distribution width (RBC) [Ratio] 13.9 % Normal 10.9-14.2 [facility] Comment on above: Performed By: #### 2 [id number] #### [facility] [address] [place] [address] Hematocrit (Bld) [Volume fraction] 34.6 % Normal 34.0-46.0 [facility] Comment on above: Performed By: #### 2 [id number] #### [facility] [address] [place] [address] Hemoglobin (Bld) [Mass/Vol] 12.1 g/dL Normal 12.0-16.0 [facility] Comment on above: Performed By: #### 2 [id number] #### [facility] [address] [place] [address] MCH (RBC) [Entitic mass] 35.3 pg High 27.0-34.0 [facility] Comment on above: Performed By: #### 2 [id number] #### [facility] [address] [place] [address] MCHC (RBC) [Mass/Vol] 34.9 g/dL Normal 31.4-36.0 [facility] Comment on above: Performed By: #### 2 [id number] #### [facility] [address] [place] [address] MCV (RBC) [Entitic vol] 101.1 fL High 80.0-100.0 [facility] Comment on above: Performed By: #### 2 [id number] #### [facility] [address] [place] [address] Platelet 111.0 E9/L Low 150.0-500.0 [facility] Comment on above: Performed By: #### 2 [id number] #### [facility] [address] [place] [address] Platelet mean volume (Bld) [Entitic vol] 8.9 fL Normal 6.4-10.8 [facility] Comment on above: Performed By: #### 2 [id number] #### [facility] [address] [place] [address] RBC (Bld) [#/Vol] 3.4 E12/L Low 4.3-5.9 [facility] Comment on above: Performed By: #### 2 [id number] #### [facility] [address] [place] [address] RBC size Nom (Bld) NORMAL Invalid Interpretation Code [facility] Comment on above: Performed By: #### 2 [id number] #### [facility] [address] [place] [address] WBC corrected for nucl RBC Auto (Bld) [#/Vol] 4.8 E9/L Normal 4.0-11.0 [facility] Comment on above: Performed By: #### 2 [id number] #### [facility] [address] [place] [address] CHEMISTRYOrdered By: SYSTEM SYSTEM on 08-29-2023 Anion [...] Normal 4.0 - 11.0 E9/L Rem[facility] Heme Lipid Panelon 08-29-2023 Cholesterol [Mass/Vol] 126 mg/dL Normal 120-200 [facility] Comment on above: Performed By: #### 2 [id number] #### [facility] [address] [place] [address] Cholesterol in HDL [Mass/Vol] 18 mg/dL Invalid Interpretation Code [facility] Comment on above: Result Comment: '>= 60 LOW RISK' '<= 40 HIGH RISK' Performed By: #### 2 [id number] #### [facility] [address] [place] [address] Cholesterol in LDL [Mass/Vol] 97 mg/dL Normal <=129 [facility] Comment on above: Performed By: #### 2 [id number] #### [facility] [address] [place] [address] Cholesterol in VLDL [Mass/Vol] 25 mg/dL Normal 7-40 [facility] Comment on above: Performed By: #### 2 [id number] #### [facility] [address] [place] [address] Triglyceride [Mass/Vol] 127 mg/dL Normal <=149 [facility] Comment on above: Performed By: #### 2 [id number] #### [facility] [address] [place] [address] TSHon 08-29-2023 TSH Qn 2.97 m[IU]/L Normal 0.34-5.60 [facility] Comment on above: Performed By: #### 2 723073 #### [facility] [address] [place] [address] eGFRon 08-29-2023 eGFR 128 mL/min/1.73 m2 Normal >=59 [facility] Comment on above: Order Comment: Order added by Discern Expert. Performed By: #### 1 [id number] #### [facility] [address] [place] [address] Provider Letteron 08-13-2023 Provider Letter Provider Letter August 13, 2023 [address] BAILEY [address] [place] [phone] LYLE BAILEY 1990 Dear Lyle, We have been trying to reach you with no success. It is important that you return our call regarding your hospital discharge upon receiving this letter. Also, at the time of your call, please provide us with your current information. Thank you for your prompt attention to this matter. Sincerely, Ernesto Rossi RN, Weave Defect Charting Clerk [phone] Normal [facility] ED Note-Physicianon 08-09-19 ED Note-Physician ED [...] Low (08/06/23 17:28:00) Hct: 33.1 % Low (08/06/23 17:28:00) MCV: 98.1 fL (08/06/23 17:28:00) MCH: 35.2 pg High (08/06/23 17:28:00) MCHC: 35.9 gm/dL (08/06/23 17::00) RDW: 14.2 % (08/06/23 17:28:00) Platelet: 101 E9/L Low (08/06/23 17::00) MPV: 9.4 fL (08/06/23 17::00) Neutro Auto: 68.1 % (08/06/23 17:28:00) Lymph Auto: 26.3 % (08/06/23 17::00) [place] Auto: 4.3 % (08/06/23 17::00) Eos Auto: 0.5 % (more content not included)... Normal [facility] Comment on above: Result Comment: Elec tronically Signed By: Fabricio Gao PA-C\.br\Date and Time Signed: 08/06/23 18:28 EDT\.br\Electronically Co-Signed By: Eric Forbes DO\.br\Date and Time Co-Signed: 08/09/23 07:16 EDT Cholesterol [Mass/volume] in Serum or PlasmaOrdered By: Piyush Pace on 08-07-2023 Cholesterol [Mass/Vol] 125 mg/dL Low 140-200 [facility] Comment on above: Chol less than 200 m g/dl low riskChol 201-239 mg/dl borderline riskChol 240 mg/dl and greater high risk Result Comment: Chol less than 200 mg/dl low risk Chol 201-239 mg/dl borderline risk Chol 240 mg/dl and greater high risk Performed By: #### E ODALIS, MG, CMP, CBC #### [facility] [address] [place] [address] Cholesterol in LDL Calc [Mas s/Vol]Ordered By: Piyush Pace on 08-07-2023 Cholesterol in LDL [Mass/Vol] 78 mg/dL 0-100 [facility] Comment on above: LDL ATP III CLASSIFI CATIONLDL less than 100 mg/dL OptimalLDL 100-129 mg/dL Near or above optimalLDL 130-159 mg/dL Borderline highLDL 160-189 mg/dL HighLDL greater than 189 mg/dL Very high Cholesterol in VLDL Calc [Ma ss/Vol]Ordered By: Piyush Pace on 08-07-2023 Cholesterol in VLDL [Mass/Vol] 31 mg/dL [facility] ECG 12 lead ECGon 08-07-2023 ECG 12 lead ECG [facility] [place] [address] [place] [address] Electrocardiograph Report Signed Patient: Lyle Bailey MR#: [id number] : 1990 Acct:[id number] Age/Sex: 33 / F ADM Date: 08/06/23 Loc: Room: [address] [place] [address] Type: ADM IN Attending Dr: Piyush Pace [...] No significant change was found Confirmed by [facility] ([id number]) on 08/07/2023 12:48:52 PM Referred By: Electronically Signed By:AZRA AVILA MD FAC Transcribed By: MUS Signed By Endy Avila MD 08/07/23 1248 Normal [facility] Lipid Panelon 08-07-2023 LDL Cholesterol,Calculate d 78 mg/dL Normal 0-100 [facility] Comment on above: Result Comment: LDL ATP III CLASSIFICATION LDL less than 100 mg/dL Optimal LDL 100-129 mg/dL Near or above optimal LDL 130-159 mg/dL Borderline high LDL 160-189 mg/dL High LDL greater than 189 mg/dL Very high Performed By: #### E ODALIS, MG, CMP, CBC #### [address] Triglyceride w/Reflex 155 mg/dL High 0-149 [facility] Comment on above: Result Comment: TRIG ATP III CLASSIFICATION TRIG less than 150 mg/dL Normal TRIG 150-199 mg/dL Borderline high TRIG 200-500 mg/dL High TRIG greater than 500 mg/dL Very high Standard traceable to the Center for Disease Conrtrol and Prevention (CDC) test method. Performed By: #### E ODALIS MG, CMP, CBC #### [address] VLDL CHOLESTEROL 31 mg/dL Normal [facility] Comment on above: Performed By: #### E ODALIS MG, CMP, CBC #### [facility] [address] [place] [address] Serum or plasma high density lipoprotein (HDL) cholesterol measurementOrdered By: Piyush Pace on 08-07-2023 Cholesterol in HDL [Mass/Vol] 16 mg/dL Low 23-92 [facility] Comment on above: HDL CHOL ATP-III CLA SSIFICATION Cardiovascular RiskHDL > or equal to 60 mg/dL LOWHDL < 40 mg/dL HIGH Result Comment: HDL CHOL ATP-III CLASSIFICATION Cardiovascular Risk HDL > or equal to 60 mg/dL LOW HDL < 40 mg/dL HIGH Performed By: #### E ODALIS MG, CMP, CBC #### [address] Serum or plasma total choles terol/high density lipoprotein (HDL) cholesterol mass ratOrdered By: Piyush Pace on 08-07-2023 Cholesterol.total/Cho lesterol in HDL [Mass ratio] 7.8 {ratio} Normal <5.0 [facility] Comment on above: Performed By: #### E ODALIS MG, CMP, CBC #### [facility] [address] [place] [address] Thyroid Stim Hormone w/Rflxo n 08-07-2023 Thyroid Stim Hormone w/Rflx 2.11 u[iU]/mL Normal 0.45-5.33 [facility] Comment on above: Performed By: #### E ODALIS MG, CMP, CBC #### [address] Thyrotropin [Units/volume] i n Serum or PlasmaOrdered By: Piyush Pace on 08-07-2023 TSH Qn 2.11 m[IU]/L 0.45-5.33 [facility] Triglyceride [Mass/volume] i n Serum or PlasmaOrdered By: Piyush Lamarus on 08-07-2023 Triglyceride [Mass/Vol] 155 mg/dL High 0-149 [facility] Comment on above: TRIG ATP III CLASSIF ICATIONTRIG less than 150 mg/dL NormalTRIG 150-199 mg/dL Borderline highTRIG 200-500 mg/dL High TRIG greater than 500 mg/dL Very highStandard traceable to the Center for Disease Conrtrol and Prevention (CDC) test method. Vitamin D 25 Hydroxy Totalon 08-07-2023 Vitamin D 25 Hydroxy Total 39.7 ng/mL Normal 30-100 [facility] Comment on above: Result Comment: [place] MIN D STATUS 25(OH)VITAMIN D RANGE (ng/mL) Deficient <20 Insufficient 20 to <30 Sufficient 30 to 100 Reference: David Garcia, Horace COTO, et al. Evaluation,treatment, and prevention of vitamin D deficiency; an Endocrine Society clinical practice guideline. JCEM. 2010; 96(7):1911-. PERFORMED BY: [place] [address] PATHOLOGIST HEADING REPAIRER LEE CARDOSO M.D. Performed By: #### E ODALIS, MG, CMP, CBC #### [address] Vitamin D+Metabolites [Mass/ volume] in Serum or PlasmaOrdered By: Piyush Pace on 08-07-2023 Vitamin D+Metabolites [Mass/Vol] 39.7 ng/mL 30-100 [facility] Comment on above: VITAMIN D STATUS 25( [place])VITAMIN D RANGE (ng/mL) Deficient <20 Insufficient 20 to <30Sufficient 30 to 100Reference: David Garcia, Horace COTO, et al. Evaluation,treatment, and prevention of vitamin D deficiency; an Endocrine Society clinical practice guideline. JCEM. 2010; 96(7):1911-. CBC w/ Auto Diffon 4 Basophils/100 WBC (Bld) 0.8 % Normal 0.0-2.0 [facility] Comment on above: Order Comment: phleb s Argyle and judit attempted to draw and were unsuccessful. called other phlebs to come draw. [id number] 08/06/2023 17:07:15 EDT Performed By: #### 2 [id number] #### [facility] [address] [place] [address] Basophils/Leukocytes Auto (Bld) [Pure # fraction] 0.1 E9/L Normal 0.0-0.2 [facility] Comment on above: Order Comment: phleb s Argyle and judit attempted to draw and were unsuccessful. called other phlebs to come draw. [id number] 08/06/2023 17:07:15 EDT Performed By: #### 2 [id number] #### [facility] [address] [place] [address] Eosinophils (Bld) [#/Vol] 0.0 E9/L Normal 0.0-0.5 [facility] Comment on above: Order Comment: phleb s Argyle and judit attempted to draw and were unsuccessful. called other phlebs to come draw. [id number] 08/06/2023 17:07:15 EDT Performed By: #### 2 [id number] #### [facility] [address] [place] [address] Eosinophils/100 WBC (Bld) 0.5 % Normal 0.0-8.0 [facility] Comment on above: Order Comment: phleb s Argyle and judit attempted to draw and were unsuccessful. called other phlebs to come draw. [facility] 08/06/2023 17:07:15 EDT Performed By: #### 2 [id number] #### [facility] [address] [place] [address] Erythrocyte distribution width (RBC) [Ratio] 14.2 % Normal 10.9-14.2 [facility] Comment on above: Order Comment: phleb s Argyle and judit attempted to draw and were unsuccessful. called other phlebs to come draw. [id number] 08/06/2023 17:07:15 EDT Performed By: #### 2 [id number] #### [facility] [address] [place] [address] Hematocrit (Bld) [Volume fraction] 33.1 % Low 34.0-46.0 [facility] Comment on above: Order Comment: phleb s Argyle and judit attempted to draw and were unsuccessful. called other phlebs to come draw. [facility] 08/06/2023 17:07:15 EDT Performed By: #### 2 [id number] #### [facility] [address] [place] [address] Hemoglobin (Bld) [Mass/Vol] 11.9 g/dL Low 12.0-16.0 [facility] Comment on above: Order Comment: phleb s Argyle and judit attempted to draw and were unsuccessful. called other phlebs to come draw. [facility] 08/06/2023 17:07:15 EDT Performed By: #### 2 [id number] #### [facility] [address] [place] [address] Lymphocytes (Bld) [#/Vol] 1.9 E9/L Normal 1.0-4.0 [facility] Comment on above: Order Comment: phleb s Argyle and judit attempted to draw and were unsuccessful. called other phlebs to come draw. [facility] 08/06/2023 17:07:15 EDT Performed By: #### 2 [id number] #### [facility] [address] [place] [address] Lymphocytes/100 WBC (Bld) 26.3 % Normal 14.0-50.0 [facility] Comment on above: Order Comment: phleb s Argyle and judit attempted to draw and were unsuccessful. called other phlebs to come draw. [facility] 08/06/2023 17:07:15 EDT Performed By: #### 2 [id number] #### [facility] [address] [place] [address] MCH (RBC) [Entitic mass] 35.2 pg High 27.0-34.0 [facility] Comment on above: Order Comment: phleb s Argyle and judit attempted to draw and were unsuccessful. called other phlebs to come draw. [facility] 08/06/2023 17:07:15 EDT Performed By: #### 2 [id number] #### [facility] [address] [place] [address] MCHC (RBC) [Mass/Vol] 35.9 g/dL Normal 31.4-36.0 [facility] Comment on above: Order Comment: phleb s Argyle and judit attempted to draw and were unsuccessful. called other phlebs to come draw. [facility] 08/06/2023 17:07:15 EDT Performed By: #### 2 [id number] #### [facility] [address] [place] [address] MCV (RBC) [Entitic vol] 98.1 fL Normal 80.0-100.0 [facility] Comment on above: Order Comment: phleb s Argyle and judit attempted to draw and were unsuccessful. called other phlebs to come draw. [facility] 08/06/2023 17:07:15 EDT Performed By: #### 2 [id number] #### [facility] [address] [place] [address] Monocytes (Bld) [#/Vol] 0.3 E9/L Normal 0.2-1.0 [facility] Comment on above: Order Comment: phleb s Argyle and judit attempted to draw and were unsuccessful. called other phlebs to come draw. [id number] 08/06/2023 17:07:15 EDT Performed By: #### 2 [id number] #### [facility] [address] [place] [address] Neutrophils (Bld) [#/Vol] 5.0 E9/L Normal 2.0-7.5 [facility] Comment on above: Order Comment: phleb s Argyle and judit attempted to draw and were unsuccessful. called other phlebs to come draw. [facility] 08/06/2023 17:07:15 EDT Performed By: #### 2 [id number] #### [facility] [address] [place] [address] Neutrophils/100 WBC (Bld) 68.1 % Normal 36.0-75.0 [facility] Comment on above: Order Comment: phleb s Argyle and judit attempted to draw and were unsuccessful. called other phlebs to come draw. [id number] 08/06/2023 17:07:15 EDT Performed By: #### 2 [id number] #### [facility] [address] [place] [address] Platelet 101.0 E9/L Low 150.0-500.0 [facility] Comment on above: Order Comment: phleb s Argyle and judit attempted to draw and were unsuccessful. called other phlebs to come draw. [id number] 08/06/2023 17:07:15 EDT Performed By: #### 2 [id number] #### [facility] [address] [place] [address] Platelet mean volume (Bld) [Entitic vol] 9.4 fL Normal 6.4-10.8 [facility] Comment on above: Order Comment: phleb s Argyle and judit attempted to draw and were unsuccessful. called other phlebs to come draw. [id number] 08/06/2023 17:07:15 EDT Performed By: #### 2 [id number] #### [facility] [address] [place] [address] RBC (Bld) [#/Vol] 3.4 E12/L Low 4.3-5.9 [facility] Comment on above: Order Comment: phleb s Argyle and judit attempted to draw and were unsuccessful. called other phlebs to come draw. [id number] 08/06/2023 17:07:15 EDT Performed By: #### 2 [id number] #### [facility] [address] [place] [address] WBC corrected for nucl RBC Auto (Bld) [#/Vol] 7.4 E9/L Normal 4.0-11.0 [facility] Comment on above: Order Comment: phleb s Argyle and judit attempted to draw and were unsuccessful. called other phlebs to come draw. [id number] 08/06/2023 17:07:15 EDT Performed By: #### 2 [id number] #### [facility] [address] [place] [address] CHEMISTRYOrdered By: SYSTEM SYSTEM on 08-06-2023 Amphetamines [...] 08-06-2023 Albumin [Mass/Vol] 3.7 g/dL Normal 3.3-5.0 [facility] Comment on above: Performed By: #### 2 [id number] #### [facility] [address] [place] [address] Albumin/Globulin (S) [Mass conc ratio] 1.2 Normal 1.1-2.2 [facility] Comment on above: Performed By: #### 2 [id number] #### [facility] [address] [place] [address] ALP [Catalytic activity/Vol] 98 Int._Unit/L Normal 21-98 [facility] Comment on above: Performed By: #### 2 [id number] #### [facility] [address] [place] [address] ALT No additional P-5'-P [Catalytic activity/Vol] 74 Int._Unit/L High 6-46 [facility] Comment on above: Performed By: #### 2 [id number] #### [facility] [address] [place] [address] Anion gap [Moles/Vol] 10 mmol/L Normal 6-16 [facility] Comment on above: Performed By: #### 2 [id number] #### [facility] [address] [place] [address] AST [Catalytic activity/Vol] 114 Int._Unit/L High 5-43 [facility] Comment on above: Performed By: #### 2 945501 #### [facility] [address] [place] [address] Bilirubin [Mass/Vol] 1.1 mg/dL Normal 0.0-1.1 [facility] Comment on above: Performed By: #### 2 236151 #### [facility] [address] [place] [address] Calcium [Mass/Vol] 8.5 mg/dL Low 8.9-11.1 [facility] Comment on above: Performed By: #### 2 [id number] #### [facility] [address] [place] [address] Chloride [Moles/Vol] 100 mmol/L Low 101-111 [facility] Comment on above: Performed By: #### 2 460149 #### [facility] [address] [place] [address] CO2 [Moles/Vol] 25 mmol/L Normal 21-31 [facility] Comment on above: Performed By: #### 2 [id number] #### [facility] [address] [place] [address] Creatinine [Mass/Vol] 0.5 mg/dL Normal 0.5-1.3 [facility] Comment on above: Performed By: #### 2 766572 #### [facility] [address] [place] [address] Globulin (S) [Mass/Vol] 3.1 g/dL Normal 1.4-4.0 [facility] Comment on above: Performed By: #### 2 860010 #### [facility] [address] [place] [address] Glucose [Mass/Vol] 92 mg/dL Normal 55-199 [facility] Comment on above: Performed By: #### 2 529043 #### [facility] [address] [place] [address] Potassium [Moles/Vol] 3.8 mmol/L Normal 3.5-5.3 [facility] Comment on above: Performed By: #### 2 874410 #### [facility] [address] [place] [address] Protein [Mass/Vol] 6.8 g/dL Normal 6.0-7.8 [facility] Comment on above: Performed By: #### 2 359349 #### [facility] [address] [place] [address] Sodium [Moles/Vol] 131 mmol/L Low 135-145 [facility] Comment on above: Performed By: #### 2 545602 #### [facility] [address] [place] [address] Urea nitrogen [Mass/Vol] 7 mg/dL Normal 5- [facility] Comment on above: Performed By: #### 2 114591 #### [facility] [address] [place] [address] Urea nitrogen/Creatinine [Mass ratio] 14 No Units Normal 10- [facility] Comment on above: Performed By: #### 2 718378 #### [facility] [address] [place] [address] Consent for Treatmenton 07-13 Consent for Treatment [id number]#[id number] F Normal [facility] ED Clinical Summaryon 2023 ED Clinical Summary (Inserted Image. Tracy ble to display) [address] [address] ED Clinical Summary Person Information Name: LYLE BAILEY Rachel Faye/[facility] Age: 33 Years : 1990 Sex: Female Language: Palestinian PCP: Amanda BARRIOS CNP Marital Status: Single [...] 08/06/2023 21:00:25 08/06/2023 21:00:25 08/06/2023 21:00:25 ADDRESS: [address] [place] [id number] PHYS DOC NOTES: MEDICAL INFORMATION: Prescriptions Given: [...] INFORMATION: Instructions: Follow up: DIAGNOSIS: 1:Hallucinations Normal [facility] ED Note-Nursingon 08-06-2023 ED Note-[facility]urs[facility] Informed this RN that she talked to mother and mother stated that pt expressed SI today and wanted to shoot herself with a gun to get the voices to stop. Pt placed under suicidal precautions at this time. Sitter outside room. All belongings removed. Normal [facility] ED Patient Education Noteon 08-06-2023 ED Patient Education Note Normal [facility] ED Patient Summaryon 024 ED Patient Summary (Inserted Image. Tracy ble to display) [place] [id number] Patient Discharge Instructions Person Information Name: LYLE BAILEY Age: 33 Years Arrival Date: 08/06/2023 15:46:17 Discharge Diagnosis: 1:Hallucinations Primary Care Physician: Amanda BARRIOS CNP Provider Information Primary Provider: rEic Forbes DO Advanced Software Packager:Fabricio Gao PA-C The exam and treatment you received in the Emergency Department were for an urgent problem and are not intended as complete care. It is important that you follow up with a doctor, nurse practitioner, or physician?s investment sales assistant for ongoing care. If your symptoms [...] opioids can be used to help relieve xdwrgqjb-gk-bwiiub pain and are often prescribed following a [...] be struggling with addiction, tell your health health care specialist and ask for guidance or call SAMHSA?S National Helpline at 9-006-790-HELP. v Source: US Department of Health and Human Services/Center for Disease Control & Prevention [facility] Medications Given: Medication Dose Route (more content not included)... Normal [facility] Ethanolon 08-06-2023 Ethanol Lvl <10 Normal <=11 [facility] Comment on above: Performed By: #### 2 [id number] #### [facility] [address] [place] [address] HEMATOLOGYOrdered By: SYSTEM SYSTEM on 08-06-2023 Basophils/100 [...] Remisol Heme Outside Recordson 08-06-2023 Outside Records [id number] FF Normal [facility] Transfer Documentson 024 Transfer Documents [id number]#1.00TI FF Normal [facility] U Drug Screenon 08-06-2023 Amphetamines Screen method >1000 ng/mL Ql (U) Positive Abnormal NEGATIVE [facility] Comment on above: Result Comment: Nega tive Cutoff: <1000 ng/mL Performed By: #### 2 [id number] #### [facility] [address] [place] [address] Barbiturates Screen Ql (U) Negative Normal NEGATIVE [facility] Comment on above: Result Comment: Nega tive Cutoff: <200 ng/mL Performed By: #### 2 566871 #### [facility] [address] [place] [address] Benzodiazepines Ql (U) Negative Normal NEGATIVE [facility] Comment on above: Result Comment: Nega tive Cutoff: <200 ng/mL Performed By: #### 2 [id number] #### [facility] [address] [place] [address] Cannabinoids Screen Ql (U) Negative Normal NEGATIVE [facility] Comment on above: Result Comment: Nega tive Cutoff: <50 ng/mL Performed By: #### 2 907014 #### [facility] [address] [place] [address] Cocaine Ql (U) Negative Normal NEGATIVE [facility] Comment on above: Result Comment: Nega tive Cutoff: <300 ng/mL Performed By: #### 2 [id number] #### [facility] [address] [place] [address] Opiates Screen Ql (U) Negative Normal NEGATIVE [facility] Comment on above: Result Comment: Nega tive Cutoff: <300 ng/mL Performed By: #### 2 [id number] #### [facility] [address] [place] [id number] Phencyclidine Screen method >25 ng/mL Ql (U) Negative Normal NEGATIVE [facility] Comment on above: Result Comment: Nega tive Cutoff: <25 ng/mL These drug screen results are to be used for medical (i.e., treatment) purposes only. Unconfirmed drug screening results must not be used for non-medical purposes (e.g., employment testing, legal testing). Performed By: #### 2 [id number] #### [facility] [address] [place] [address] U Fentanyl Negative Normal NEGATIVE [facility] Comment on above: Result Comment: Nega tive Cutoff: <5 ng/mL These drug screen results are to be used for medical (i.e., treatment) purposes only. Unconfirmed drug screening results must not be used for non-medical purposes (e.g., employment testing, legal testing). Performed By: #### 2 [id number] #### [facility] [address] [place] [address] Valuables Checkliston 2023 Valuables Checklist [id number]#1.00TI FF Normal [facility] eGFRon 08-06-2023 eGFR 128 mL/min/1.73 m2 Normal >=59 [facility] Comment on above: Order Comment: Order added by Discern Expert. Performed By: #### 1 [id number] #### [facility] [address] [place] [address] C Urineon 07-17-2023 Bacteria identified Cx Nom (U) Microbiology PROCEDURE: Urine Culture [R1] SOURCE: U CleanCatch BODY SITE: COLLECTED DATE/TIME: 07/14/2023 11:20 EDT RECEIVED DATE/TIME: 07/15/2023 12:20 EDT START DATE/TIME: 07/15/2023 12:20 EDT FREE TEXT SOURCE: Rainer HARO, Mike Spear PA-C, Mike Rushing FINAL REPORTS Final Report [] Verified Date/Time: 07/17/2023 11:13 EDT 500 cfu/ml Mixed skin contaminants Performing Locations R1: This test was performed at: [facility], [address] [place] [address], [phone]- , , Normal [facility] Comment on above: Performed By: #### 2 [id number] #### [facility] [address] [place] [address] Chlam/GC/Trich,NAAon 024 C. trachomatis rRNA MOISES+probe Ql (Unsp spec) Negative Invalid Interpretation Code Negative [facility] Comment on above: Performed By: #### 1 [id number] #### [facility] [address] [place] [address] N. gonorrhoeae rRNA MOISES+probe Ql (Unsp spec) Negative Invalid Interpretation Code Negative [facility] Comment on above: Performed By: #### 1 [id number] #### [facility] [address] [place] [address] T. vaginalis rRNA MOISES+probe Ql (Unsp spec) Negative Invalid Interpretation Code Negative [facility] Comment on above: Result Comment: Perf ormed at: =[facility] [address] JESSIKA [place]uns[place] [id number] MD Pete Norman Performed By: #### 1 [id number] #### [facility] [address] [place] [address] Ambulatory Visit Summaryon 0 07-14-2023 Ambulatory Visit [...] future visit, Nurse collect, BMI 29.0-29.9,adult Normal [facility]/Clini c Noteon 07-14-2023 [...] with voice recognition software. Occasional wrong-word or ?rczng-k-ierl? substitutions may have occurred due to the [...] Dysuria (R30.0: Dysuria) Please follow-up with your grinder hardboard in 3 to 5 days. You were [...] day(s), # 14 tab(s), Refills(s) 0, Pharmacy: [facility], 156, cm, 07/14/23 11:03:00 EDT, Height/Length Dosing, 71, kg, 07/14/23 11:03:00 EDT, Weight Dosing phenazopyridine, 100 mg = 1 tab(s), Oral, TID, X 3 day(s), # 9 tab(s), Refills(s) 0, Pharmacy: [facility], 156, cm, 07/14/23 11:03:00 EDT, Height/Length Dosing, 71, kg, 07/14/23 11:03:00 EDT, Weight Dosing Chlam/GC/Trich,MOISES Urine Culture Urnls Dip Stick (more content not included)... Normal [facility] Comment on above: Result [...] numbers. This can be done either in [place] ([place] or metric measurements. Note that charts and online BMI calculators are available to help you find your BMI quickly and easily without having to do these calculations yourself. To calculate your BMI in [place] ([place] measurements: 1. Measure your weight in [...] www.heart.org ? National Heart, Lung, and Blood [place]: www.nhlbi.nih.gov Summary ? Body mass index (BMI) is a number that is calculated from a person's weight and height. ? BMI may help estimate how much of a person's weight is composed of fat. BMI can help identify those who may be at higher risk for certain medical problems. ? BMI can be measured using Palestinian measurements or metric measurements. ? BMI charts are used to identify whether you are underweight, normal weight, overweight, or obese. This information is not intended to replace advice given to you by your health care provider. Make sure you discuss any questions you have with your health care provider. Document Revised: 10/21/2019 Document Reviewed: 08/28/2019 Assembly Patient Education ? 2022 [employer]. Pulmonary Medicine Steps to Quit Smoking Smoking [...] to quit. (more content not included)... Normal [facility] Valuables Checkliston 2023 Valuables Checklist [id number]#[id number] FF Normal [facility] B hCG Qualon 07-05-2023 Beta HCG ( test) Ql Negative Normal [facility] Comment on above: Performed By: #### 2 [id number] #### [facility] [address] [place] [address] CBC w/ Auto Diffon Basophils/100 WBC (Bld) 2.5 % High 0.0-2.0 [facility] Comment on above: Performed By: #### 2 [id number] #### [facility] [address] [place] [address] Basophils/Leukocytes Auto (Bld) [Pure # fraction] 0.2 E9/L Normal 0.0-0.2 [facility] Comment on above: Performed By: #### 2 [id number] #### [facility] [address] [place] [address] Eosinophils (Bld) [#/Vol] 0.0 E9/L Normal 0.0-0.5 [facility] Comment on above: Performed By: #### 2 [id number] #### [facility] [address] [place] [address] Eosinophils/100 WBC (Bld) 0.4 % Normal 0.0-8.0 [facility] Comment on above: Performed By: #### 2 [id number] #### [facility] [address] [place] [address] Erythrocyte distribution width (RBC) [Ratio] 14.0 % Normal 10.9-14.2 [facility] Comment on above: Performed By: #### 2 [id number] #### [facility] [address] [place] [address] Hematocrit (Bld) [Volume fraction] 37.6 % Normal 34.0-46.0 [facility] Comment on above: Performed By: #### 2 [id number] #### [facility] [address] [place] [address] Hemoglobin (Bld) [Mass/Vol] 12.8 g/dL Normal 12.0-16.0 [facility] Comment on above: Performed By: #### 2 [id number] #### [facility] [address] [place] [address] Lymphocytes (Bld) [#/Vol] 2.4 E9/L Normal 1.0-4.0 [facility] Comment on above: Performed By: #### 2 [id number] #### [facility] [address] [place] [address] Lymphocytes/100 WBC (Bld) 28.9 % Normal 14.0-50.0 [facility] Comment on above: Performed By: #### 2 [id number] #### [facility] 04 [place] [address] MCH (RBC) [Entitic mass] 33.8 pg Normal 27.0-34.0 [facility] Comment on above: Performed By: #### 2 [id number] #### [facility] [address] [place] [address] MCHC (RBC) [Mass/Vol] 34.2 g/dL Normal 31.4-36.0 [facility] Comment on above: Performed By: #### 2 [id number] #### [facility] [address] [place] [address] MCV (RBC) [Entitic vol] 98.9 fL Normal 80.0-100.0 [facility] Comment on above: Performed By: #### 2 [id number] #### [facility] [address] [place] [address] Monocytes (Bld) [#/Vol] 0.4 E9/L Normal 0.2-1.0 [facility] Comment on above: Performed By: #### 2 455206 #### [facility] [address] [place] [address] [place] [address] Neutrophils (Bld) [#/Vol] 5.1 E9/L Normal 2.0-7.5 [facility] Comment on above: Performed By: #### 2 584805 #### [facility] [address] [place] [address] Neutrophils/100 WBC (Bld) 63.2 % Normal 36.0-75.0 [facility] Comment on above: Performed By: #### 2 999127 #### [facility] [address] [place] [address] Platelet mean volume (Bld) [Entitic vol] 9.4 fL Normal 6.4-10.8 [facility] Comment on above: Performed By: #### 2 617483 #### [facility] [address] [place] [address] Platelets (Bld) [#/Vol] 128.0 E9/L Low 150.0-500.0 [facility] Comment on above: Performed By: #### 2 674525 #### [facility] [address] [place] [address] RBC (Bld) [#/Vol] 3.8 E12/L Low 4.3-5.9 [facility] Comment on above: Performed By: #### 2 180951 #### [facility] [address] [place] [address] WBC corrected for nucl RBC Auto (Bld) [#/Vol] 8.1 E9/L Normal 4.0-11.0 [facility] Comment on above: Performed By: #### 2 002180 #### [facility] [address] [place] [address] CHEMISTRYOrdered By: SYSTEM SYSTEM on 07-05-2023 Amphetamines [...] in ED at 12:05 on 07/05/23 by evi. Interpretive Data: N egative Cutoff: <200 ng/mL [...] 07-05-2023 Albumin [Mass/Vol] 4.1 g/dL Normal 3.3-5.0 [facility] Comment on above: Performed By: #### 2 612079 #### [facility] [address] [place] [address] Albumin/Globulin (S) [Mass conc ratio] 1.1 Normal 1.1-2.2 [facility] Comment on above: Performed By: #### 2 135886 #### [facility] [address] [place] [address] ALP [Catalytic activity/Vol] 111 Int._Unit/L High 21-98 [facility] Comment on above: Performed By: #### 2 613442 #### [facility] [address] [place] [address] ALT No additional P-5'-P [Catalytic activity/Vol] 66 Int._Unit/L High 6-46 [facility] Comment on above: Performed By: #### 2 828878 #### [facility] [address] [place] [address] Anion gap [Moles/Vol] 14 mmol/L Normal 6-16 [facility] Comment on above: Performed By: #### 2 [id number] #### [facility] [address] [place] [address] AST [Catalytic activity/Vol] 119 Int._Unit/L High 5-43 [facility] Comment on above: Performed By: #### 2 812891 #### [facility] [address] [place] [address] Bilirubin [Mass/Vol] 0.7 mg/dL Normal 0.0-1.1 [facility] Comment on above: Performed By: #### 2 213148 #### [facility] [address] [place] [address] Calcium [Mass/Vol] 8.9 mg/dL Normal 8.9-11.1 [facility] Comment on above: Performed By: #### 2 636682 #### [facility] [address] [place] [address] Chloride [Moles/Vol] 108 mmol/L Normal 101-111 [facility] Comment on above: Performed By: #### 2 485788 #### [facility] [address] [place] [address] CO2 [Moles/Vol] 23 mmol/L Normal 21-31 [facility] Comment on above: Performed By: #### 2 625824 #### [facility] [address] [place] [address] Creatinine [Mass/Vol] 0.6 mg/dL Normal 0.5-1.3 [facility] Comment on above: Performed By: #### 2 524128 #### [facility] [address] [place] [address] Globulin (S) [Mass/Vol] 3.8 g/dL Normal 1.4-4.0 [facility] Comment on above: Performed By: #### 2 210001 #### [facility] [address] [place] [address] Glucose [Mass/Vol] 97 mg/dL Normal 55-199 [facility] Comment on above: Performed By: #### 2 972787 #### [facility] [address] [place] [address] Potassium [Moles/Vol] 4.0 mmol/L Normal 3.5-5.3 [facility] Comment on above: Performed By: #### 2 713300 #### [facility] [address] [place] [address] Protein [Mass/Vol] 7.9 g/dL High 6.0-7.8 [facility] Comment on above: Performed By: #### 2 288370 #### [facility] [address] [place] [address] Sodium [Moles/Vol] 141 mmol/L Normal 135-145 [facility] Comment on above: Performed By: #### 2 508440 #### [facility] [address] [place] [address] Urea nitrogen [Mass/Vol] 4 mg/dL Low 5- [facility] Comment on above: Performed By: #### 2 122864 #### [facility] [address] [place] [address] Urea nitrogen/Creatinine [Mass ratio] 7 No Units Low 10- [facility] Comment on above: Performed By: #### 2 776484 #### [facility] [address] [place] [address] Consent for Treatmenton 06-12 Consent for Treatment [id number] FF Normal [facility] ED Clinical Summaryon 2023 ED Clinical Summary (Inserted Image. Tracy ble to display) [address] [address] ED Clinical Summary Person Information Name: LYLE BAILEY [facility] Age: 33 Years : 1990 Sex: Female Language: Palestinian PCP: Amanda BARRIOS CNP Marital Status: Single [...] 07/05/2023 22:01:40 07/05/2023 22:01:40 07/05/2023 22:01:40 ADDRESS: [address] [place] [phone] PHYS DOC NOTES: Addendum by Kerry Linton [...] Acute alcohol intoxication; Behavior concern in adult [facility] ED Note-Nursingon 07-05-2023 ED Note-Nursing [facility] attempting to call report [facility] at this time [facility] ED Note-Physicianon 07-05-19 ED [...] 150 mg (more content not included)... Normal [facility] Comment on above: Result Comment: Elec tronically Signed By: Kerry Linton DO\.ella\Date and Time Signed: 07/05/23 20:54 EDT ED Patient Education Noteon 07-05-2023 ED Patient Education Note Normal [facility] ED Patient Summaryon 024 ED Patient Summary (Inserted Image. Tracy ble to display) [address] [address] Patient Discharge Instructions Person Information Name: LYLE BAILEY Age: 33 Years Arrival Date: 07/05/2023 10:35:06 Discharge Diagnosis: Acute alcohol intoxication; Behavior concern in adult Primary Care Physician: Amanda BARRIOS CNP Provider Information Primary Provider: Isai Hall DO Advanced Software Packager:None The exam and treatment you received in the Emergency Department were for an urgent problem and are not intended as complete care. It is important that you follow up with a doctor, nurse practitioner, or physician?s investment sales assistant for ongoing care. If your symptoms [...] opioids can be used to help relieve qqhdwmuw-up-thkgip pain and are often prescribed following a [...] be struggling with addiction, tell your health health care specialist and ask for guidance or call SAM[employer]?S National Helpline at 6-769-228-LRSJ. v Source: [place] Department of Health and Human Services/Center for Disease Control & Prevention [facility] Medications Given: Me (more content not included)... Normal [facility] Ethanolon 07-05-2023 Ethanol Lvl 240 mg/dL Abnormal <=11 [facility] Comment on above: Result Comment: Crit ical Result Verified by Repeat Analysis Critical Result [id number] Called to and read back by: CHILO MACK at: 07/05/2023 11:45:39 by:EVI Performed By: #### 2 [id number] #### [facility] [address] [place] [address] HEMATOLOGYOrdered By: SYSTEM SYSTEM on 07-05-2023 Basophils/100 [...] Remisol Heme Outside Recordson 07-05-2023 Outside Records [id number] FF Normal [facility] SEROLOGYOrdered By: Monica Earl on 07-05-2023 Beta HCG ( test) Ql Negative (07/05/23 11:03 AM) Normal [facility] Man Sero Transfer Documentson 024 Transfer Documents [id number] FF Normal [facility] U Drug Screenon 07-05-2023 Amphetamines Screen method >1000 ng/mL Ql (U) Negative Normal NEGATIVE [facility] Comment on above: Result Comment: Nega tive Cutoff: <1000 ng/mL Performed By: #### 2 [id number] #### [facility] [address] [place] [address] Barbiturates Screen Ql (U) Positive Abnormal NEGATIVE [facility] Comment on above: Result Comment: Resu lt verified by repeat analysis, Unconfirmed by alternate method No Confirmation Requested by Physician. Called to Chilo Mack in ED at 12:05 on 07/05/23 by evi. Negative Cutoff: <200 ng/mL Performed By: #### 2 657155 #### [facility] [address] [place] [address] Benzodiazepines Ql (U) Negative Normal NEGATIVE [facility] Comment on above: Result Comment: Nega tive Cutoff: <200 ng/mL Performed By: #### 2 [id number] #### [facility] [address] [place] [address] Cannabinoids Screen Ql (U) Negative Normal NEGATIVE [facility] Comment on above: Result Comment: Nega tive Cutoff: <50 ng/mL Performed By: #### 2 795398 #### [facility] [address] [place] [address] Cocaine Ql (U) Negative Normal NEGATIVE [facility] Comment on above: Result Comment: Nega tive Cutoff: <300 ng/mL Performed By: #### 2 061086 #### [facility] [address] [place] [address] Opiates Screen Ql (U) Negative Normal NEGATIVE [facility] Comment on above: Result Comment: Nega tive Cutoff: <300 ng/mL Performed By: #### 2 886650 #### [facility] [address] [place] [address] Phencyclidine Screen method >25 ng/mL Ql (U) Negative Normal NEGATIVE [facility] Comment on above: Result Comment: Nega tive Cutoff: <25 ng/mL These drug screen results are to be used for medical (i.e., treatment) purposes only. Unconfirmed drug screening results must not be used for non-medical purposes (e.g., employment testing, legal testing). Performed By: #### 2 056800 #### [facility] [address] [place] [address] U Fentanyl Negative Normal NEGATIVE [facility] Comment on above: Result Comment: Nega tive Cutoff: <5 ng/mL These drug screen results are to be used for medical (i.e., treatment) purposes only. Unconfirmed drug screening results must not be used for non-medical purposes (e.g., employment testing, legal testing). Performed By: #### 2 [id number] #### [facility] [address] [place] [address] UA with Cult Rflxon 07-05-19 24 Bilirubin Ql (U) Negative Normal Negative [facility] Comment on above: Performed By: #### 4 [id number] #### [facility] [address] [place] [address] Clarity (U) Clear Normal Clear [facility] Comment on above: Performed By: #### 4 [id number] #### [facility] [address] [place] [address] Color (U) Yellow Normal Yellow [facility] Comment on above: Result Comment: Micr oscopic readings are only performed on those samples that meet specific criteria set forth by [facility]. Performed By: #### 4 [id number] #### [facility] [address] [place] [address] Glucose Ql (U) Negative Normal Negative [facility] Comment on above: Performed By: #### 4 [id number] #### [facility] [address] [place] [address] Hemoglobin Auto test strip (U) [Mass/Vol] Negative Normal Negative [facility] Comment on above: Performed By: #### 4 [id number] #### [facility] [address] [place] [address] Ketones Auto test strip Ql (U) Negative Normal Negative [facility] Comment on above: Performed By: #### 4 [id number] #### [facility] [address] [place] [address] Leukocyte esterase Auto test strip Ql (U) Negative Normal Negative [facility] Comment on above: Performed By: #### 4 [id number] #### [facility] [address] [place] [address] Nitrite Auto test strip Ql (U) Negative Normal Negative [facility] Comment on above: Performed By: #### 4 [id number] #### [facility] [address] [place] [address] pH (U) 7.0 [pH] Invalid Interpretation Code 5.0-9.0 [facility] Comment on above: Performed By: #### 4 [id number] #### [facility] [address] [place] [id number] Protein Ql (U) Negative Normal Negative [facility] Comment on above: Performed By: #### 4 [id number] #### [facility] [address] [address]69257 Specific gravity (U) [Rel density] 1.012 Invalid Interpretation Code 1.005-1.030 [facility] Comment on above: Performed By: #### 4 [id number] #### [facility] [address] [place] [address] Urobilinogen (U) [Mass/Vol] 4 mg/dL Abnormal Negative [facility] Comment on above: Performed By: #### 4 [id number] #### [facility] [address] [place] [address] Type of Urine collection method Clean Catch Normal [facility] Comment on above: Performed By: #### 4 [id number] #### [facility] [address] [id number] URINALYSISOrdered By: SYSTEM SYSTEM on 07-05-2023 Bilirubin Ql (U) Negative Normal Negativemg/ d L [facility] UA Auto SS Clarity (U) Clear (07/05/23 11:21 AM) Normal Clear [facility] UA Auto SS Color (U) Yellow 3 (07/05/23 11:21 AM) Normal Yellow [facility] UA Auto SS Comment on above: Interpretive Data: M icroscopic readings are only performed on those samples that meet specific criteria set forth by [facility]. Glucose Ql (U) Negative Normal Negativemg/d L FT UA Auto SS Hemoglobin Auto test strip (U) [Mass/Vol] Negative Normal Negativemg/d L FT UA Auto SS Ketones Auto test strip Ql (U) Negative Normal Negativemg/d L FT UA Auto SS Leukocyte esterase Auto test strip Ql (U) Negative Normal NegativeLeu/ uL FT UA Auto SS Nitrite Auto test strip Ql (U) Negative Normal Negativemg/d L [facility] UA Auto SS pH (U) 7.0 *NA* (07/05/23 11:21 AM) Invalid Interpretation Code 5.0 - 9.0 [facility] UA Auto SS Protein Ql (U) Negative Normal Negativemg/d L [facility] UA Auto SS Specific gravity (U) [Rel density] 1.012 *NA* (07/05/23 11:21 AM) Invalid Interpretation Code 1.005 - 1.030 [facility] UA Auto SS Urobilinogen (U) [Mass/Vol] 4 mg/dL Invalid Interpretation Code Negativemg/d L [facility] UA Auto SS URINALYSISOrdered By: Isai Hall on 07-05-2023 UA Spec Desc Clean Catch (07/05/23 11:21 AM) Normal [facility] UA Auto SS eGFRon 07-05-2023 eGFR 123 mL/min/1.73 m2 Normal >=59 [facility] Comment on above: Order Comment: Order added by Discern Expert. Performed By: #### 1 [id number] #### [facility] [address] [place] [address] BMPon 07-03-2023 Anion gap [Moles/Vol] 15 mmol/L Normal 6-16 [facility] Comment on above: Performed By: #### 2 [id number] #### [facility] [address] [place] [address] Calcium [Mass/Vol] 9.3 mg/dL Normal 8.9-11.1 [facility] Comment on above: Performed By: #### 2 [id number] #### [facility] [address] [place] [address] Chloride [Moles/Vol] 99 mmol/L Low 101-111 [facility] Comment on above: Performed By: #### 2 [id number] #### [facility] [address] [place] [address] CO2 [Moles/Vol] 24 mmol/L Normal 21-31 [facility] Comment on above: Performed By: #### 2 [id number] #### [facility] [address] [place] [address] Creatinine [Mass/Vol] 0.6 mg/dL Normal 0.5-1.3 [facility] Comment on above: Performed By: #### 2 811863 #### [facility] [address] [place] [address] Glucose [Mass/Vol] 92 mg/dL Normal 55-199 [facility] Comment on above: Performed By: #### 2 227266 #### [facility] [address] [place] [address] Potassium [Moles/Vol] 3.9 mmol/L Normal 3.5-5.3 [facility] Comment on above: Performed By: #### 2 [id number] #### [facility] [address] [place] [address] Sodium [Moles/Vol] 134 mmol/L Low 135-145 [facility] Comment on above: Performed By: #### 2 [id number] #### [facility] [address] [place] [address] Urea nitrogen [Mass/Vol] 3 mg/dL Low 5-21 [facility] Comment on above: Performed By: #### 2 [id number] #### [facility] [address] [place] [address] Urea nitrogen/Creatinine [Mass ratio] 5 No Units Low 10-20 [facility] Comment on above: Performed By: #### 2 [id number] #### [facility] [address] [place] [address] CBC w/ Auto Diffon 4 Basophils/100 WBC (Bld) 0.3 % Normal 0.0-2.0 [facility] Comment on above: Performed By: #### 2 789370 #### [facility] [address] [place] [address] Basophils/Leukocytes Auto (Bld) [Pure # fraction] 0.0 E9/L Normal 0.0-0.2 [facility] Comment on above: Performed By: #### 2 [id number] #### [facility] [address] [place] [address] Eosinophils (Bld) [#/Vol] 0.1 E9/L Normal 0.0-0.5 [facility] Comment on above: Performed By: #### 2 926100 #### [facility] [address] [place] [address] Eosinophils/100 WBC (Bld) 1.5 % Normal 0.0-8.0 [facility] Comment on above: Performed By: #### 2 979008 #### [facility] [address] [place] [address] Erythrocyte distribution width (RBC) [Ratio] 14.0 % Normal 10.9-14.2 [facility] Comment on above: Performed By: #### 2 279390 #### [facility] [address] [place] [address] Hematocrit (Bld) [Volume fraction] 39.3 % Normal 34.0-46.0 [facility] Comment on above: Performed By: #### 2 [id number] #### [facility] [address] [place] [address] Hemoglobin (Bld) [Mass/Vol] 13.2 g/dL Normal 12.0-16.0 [facility] Comment on above: Performed By: #### 2 087251 #### [facility] [address] [place] [address] Lymphocytes (Bld) [#/Vol] 1.6 E9/L Normal 1.0-4.0 [facility] Comment on above: Performed By: #### 2 962801 #### [facility] [address] [place] [address] Lymphocytes/100 WBC (Bld) 33.5 % Normal 14.0-50.0 [facility] Comment on above: Performed By: #### 2 998120 #### [facility] [address] [place] [address] MCH (RBC) [Entitic mass] 33.7 pg Normal 27.0-34.0 [facility] Comment on above: Performed By: #### 2 [id number] #### [facility] [address] [place] [address] MCHC (RBC) [Mass/Vol] 33.5 g/dL Normal 31.4-36.0 [facility] Comment on above: Performed By: #### 2 378140 #### [facility] [address] [place] [address] MCV (RBC) [Entitic vol] 100.6 fL High 80.0-100.0 [facility] Comment on above: Performed By: #### 2 736315 #### [facility] [address] [place] [address] Monocytes (Bld) [#/Vol] 0.2 E9/L Normal 0.2-1.0 [facility] Comment on above: Performed By: #### 2 [id number] #### [facility] [address] [place] [address] Neutrophils (Bld) [#/Vol] 2.8 E9/L Normal 2.0-7.5 [facility] Comment on above: Performed By: #### 2 [id number] #### [facility] [address] [place] [address] Neutrophils/100 WBC (Bld) 59.5 % Normal 36.0-75.0 [facility] Comment on above: Performed By: #### 2 038357 #### [facility] [address] [place] [address] Platelet 126.0 E9/L Low 150.0-500.0 [facility] Comment on above: Performed By: #### 2 [id number] #### [facility] [address] [place] [address] Platelet mean volume (Bld) [Entitic vol] 8.9 fL Normal 6.4-10.8 [facility] Comment on above: Performed By: #### 2 547672 #### [facility] [address] [place] [address] RBC (Bld) [#/Vol] 3.9 E12/L Low 4.3-5.9 [facility] Comment on above: Performed By: #### 2 860487 #### [facility] [address] [place] [address] WBC corrected for nucl RBC Auto (Bld) [#/Vol] 4.7 E9/L Normal 4.0-11.0 [facility] Comment on above: Performed By: #### 2 [id number] #### [facility] [address] [place] [address] CHEMISTRYOrdered By: SYSTEM SYSTEM on 07-03-2023 Amphetamines [...] 109 mg/dL High 55 - 99 mg/dL [facility] POC Subsection Comment on above: Result Comment: Seema bo Meter POC Device SN [id number] Invalid Interpretation Code [facility] POC Subsection POC User ID [id number] 1 Invalid Interpretation Code [facility] POC Subsection POC Username HUA BETTS Invalid Interpretation Code [facility] POC Subsection CHEMISTRYOrdered By: Paty Clark on 07-03-2023 Albumin [Mass/Vol] 4.1 g/dL Normal 3.3 - 5.0 gm/dL [facility] Chem S Albumin/Globulin [Mass ratio] 1.2 {ratio} Normal 1.1 - 2.2 FT Chem S ALP [Catalytic activity/Vol] 105 [iU]/d High 21 - 98 Int._Unit/L [facility] Chem S ALT No additional P-5'-P [Catalytic activity/Vol] 86 [iU]/d High 6 - 46 Int._Unit/L FT Chem S Anion gap [Moles/Vol] 15 mmol/L Normal 6 - 16 mEq/L F [facility] Chem S AST [Catalytic activity/Vol] 132 [iU]/d High 5 - 43 Int._Unit/L FT Chem S Bilirubin [Mass/Vol] 0.9 mg/dL Normal 0.0 - 1 .1 mg/dL FT Chem S Bilirubin.direct [Mass/Vol] 0.3 mg/dL Normal 0.0 - 0.4 mg/dL [facility] Chem S Bilirubin.indirect [Mass or moles/Vol] 0.6 mg/dL Normal 0.1 - 0.9 mg/dL FT Chem S Calcium [Mass/Vol] 9.3 mg/dL Normal 8.9 - 11. 1 mg/dL [facility] Chem S Chloride [Moles/Vol] 99 mmol/L Low 101 - 1 11 mmol/L [facility] Chem S CO2 [Moles/Vol] 24 mmol/L Normal 21 - 31 mmol/L [facility] Chem S Creatinine [Mass/Vol] 0.6 mg/dL Normal 0.5 - 1.3 mg/dL [facility] Chem S eGFR 132 mL/min/1.73 m2 Normal >=59mL/mi n/1 .73 m2 [facility] Chem S Ethanol Lvl mg/dL Normal <=11mg/dL [facility] Chem S Globulin (S) [Mass/Vol] 3.4 g/dL Normal 1.4 - 4.0 gm/dL [facility] Chem S Glucose [Mass/Vol] 92 mg/dL Normal 55 - 199 mg/dL [facility] Chem S Magnesium [Mass/Vol] 1.5 mg/dL Normal 1.3 - 2 .4 mg/dL [facility] Chem S Potassium [Moles/Vol] 3.9 mmol/L Normal 3.5 - 5.3 mmol/L [facility] Chem S Protein [Mass/Vol] 7.5 g/dL Normal 6.0 - 7.8 gm/dL [facility] Chem S Sodium [Moles/Vol] 134 mmol/L Low 135 - 145 mmol/L [facility] S Urea nitrogen [Mass/Vol] 3 mg/dL Low 5 - 21 mg/dL [facility] S Urea nitrogen/Creatinine [Mass ratio] 5 mg/mg Low 10 - 20 [facility] Chem S Capillary Glucose POCon 06-12 Glucose [Mass/Vol] 109 mg/dL High 55-99 [facility] Comment on above: Result Comment: Seema soriano Meter Performed By: #### 2 [id number] #### [facility] [address] [place] [address] Consent for Treatmenton 06-12 Consent for Treatment [id number] FF Normal [facility] Discharge Instructionson Discharge Instructions [id number] FF Normal [facility] ED Clinical Summaryon 2023 ED Clinical Summary (Inserted Image. Tracy ble to display) [address] [address] ED Clinical Summary Person Information Name: LYLE BAILEY [place] Age: 33 Years : 1990 Sex: Female Language: Palestinian PCP: Amanda BARRIOS CNP Marital Status: Single [...] 07/03/2023 10:49:08 07/03/2023 10:49:08 07/03/2023 10:49:08 ADDRESS: [address] [place] [phone] [facility] DOC NOTES: MEDICAL INFORMATION: Prescriptions Given: [...] day. PATIENT EDUCATION INFORMATION: Instructions: Seizure, Adult, Zffb-wn-Kprz; Alcohol Withdrawal Syndrome, Xhmk-if-Ggma Follow up: With: Address: When: Amanda BARRIOS [address] [place] [address] Molecular Imprints (1) Within 1 to 2 days, only if needed DIAGNOSIS: 1:Alcohol withdrawal seizure; Unspecified convulsions Normal [facility] ED Note-Physicianon 07-03-19 ED Note-Physician Basic [...] 2 days, only if needed [address] [place] [address]- Business (1) Additional Instructions: Patient Education Seizure, Adult, Jfdq-sf-Hfiq Alcohol Withdrawal Syndrome, Ynno-rh-Woug Problem List/Past Medical History Ongoing Alcohol abuse [...] cigarettes (1 (more content not included)... Normal [facility] Comment on above: Result [...] Follow these instructions at home: ? Take cgly-tcg-ebskwoc and prescription medicines only as told by [...] provider. Document Revised: 04/11/2022 Document Reviewed: 04/11/2022 Assembly Patient Education ? 2022 [employer]. Neurology Seizure, Adult A seizure is a [...] clear cau (more content not included)... Normal [facility] ED Patient Summaryon 024 ED Patient Summary (Inserted Image. Tracy ble to display) [address] [address] Patient Discharge Instructions Person Information Name: LYLE BAILEY Age: 33 Years Arrival Date: 07/03/2023 07:31:19 Discharge Diagnosis: 1:Alcohol withdrawal seizure; Unspecified convulsions Primary Care Physician: Amanda BARRIOS CNP Provider Information Primary Provider: Kaushik Sparks MD Advanced Software Packager:None The exam and treatment you received in the Emergency Department were for an urgent problem and are not intended as complete care. It is important that you follow up with a doctor, nurse practitioner, or physician?s investment sales assistant for ongoing care. If your symptoms become worse or you do not improve as expected and you are unable to reach your usual health care provider, you should return to the Emergency Department. We are available 24 hours a day. LYLE BAILEY has been given the following list of patient education materials, prescriptions and follow-up instructions: Follow-up Instructions: With: Address: When: Amanda MARTÍNEZJULIO [address] [place], [place] [id number] Business (1) Within 1 to 2 days, only if needed In the event that this physician does not participate in your insurance network, please consult with your insurance company to find a nearby participating provider. Patient Education Materials: Seizure, Adult, Rphe-qu-Sjtf; Alcohol Withdrawal Syndrome, Gqxf-fd-Glid A MESSAGE TO ALL PATIENTS REGARDING OPIOIDS PRESCRIPTION OPIOIDS: WHAT YOU NEED TO KNOW Prescription opioids can be used to help relieve xpotvtpm-vi-bdnjzz pain and are often prescribed following a [...] be struggling with addiction, tell your health health care specialist and ask for guidance or ca (more content not included)... [facility] EMS Documentationon 07-03-19 24 EMS Documentation Please click on link to see report [facility] Comment on above: Result Comment: Miss ing Attachment - total size limit for all attachments exceeded [email or web address] Can be viewed in source system Ethanolon 07-03-2023 Ethanol Lvl <10 Normal <=11 [facility] Comment on above: Performed By: #### 2 [id number] #### [facility] [address] [place] [address] HEMATOLOGYOrdered By: SYSTEM SYSTEM on 07-03-2023 Basophils/100 [...] 07-03-2023 Albumin [Mass/Vol] 4.1 g/dL Normal 3.3-5.0 [facility] Comment on above: Performed By: #### 2 [id number] #### [facility] [address] [place] [address] Albumin/Globulin (S) [Mass conc ratio] 1.2 Normal 1.1-2.2 [facility] Comment on above: Performed By: #### 2 [id number] #### [facility] [address] [place] [address] ALP [Catalytic activity/Vol] 105 Int._Unit/L High 21-98 [facility] Comment on above: Performed By: #### 2 [id number] #### [facility] [address] [place] [address] ALT No additional P-5'-P [Catalytic activity/Vol] 86 Int._Unit/L High 6-46 [facility] Comment on above: Performed By: #### 2 [id number] #### [facility] [address] [place] [address] AST [Catalytic activity/Vol] 132 Int._Unit/L High 5-43 [facility] Comment on above: Performed By: #### 2 [id number] #### [facility] [address] [place] [address] Bilirubin [Mass/Vol] 0.9 mg/dL Normal 0.0-1.1 [facility] Comment on above: Performed By: #### 2 [id number] #### [facility] [address] [place] [address] Bilirubin.direct [Mass/Vol] 0.3 mg/dL Normal 0.0-0.4 [facility] Comment on above: Performed By: #### 2 170154 #### [facility] [address] [place] [address] Bilirubin.indirect [Mass or moles/Vol] 0.6 mg/dL Normal 0.1-0.9 [facility] Comment on above: Performed By: #### 2 737922 #### [facility] [address] [place] [address] Globulin (S) [Mass/Vol] 3.4 g/dL Normal 1.4-4.0 [facility] Comment on above: Performed By: #### 2 951946 #### [facility] [address] [place] [address] Protein [Mass/Vol] 7.5 g/dL Normal 6.0-7.8 [facility] Comment on above: Performed By: #### 2 986025 #### [facility] [address] [place] [address] Magnesiumon 07-03-2023 Magnesium [Mass/Vol] 1.5 mg/dL Normal 1.3-2.4 [facility] Comment on above: Performed By: #### 2 086016 #### [facility] [address] [place] [address] Pre-Arrival Noteon Pre-Arrival Note Pre-Arrival Summary Name: , britany Current Date: 07/03/2023 07:31:40 EDT Gender: Female Date of : Age: 32 Pre-Arrival Type: EMS ETA: 07/03/2023 07:50:00 EDT Primary Care Physician: Presenting Problem: pseudoseizure Pre-Arrival User: Chilo Godoy RN Referring Source: Location: PA Completion Date/Time: 07/03/2023 07:20:00 [facility] Emergency Department Pre-Hospital Report Form Vital Signs: Pre-Hospital Report: Treatment in Route: Response to Treatment: Misc. Issues: Normal [facility] U Drug Screenon 07-03-2023 Amphetamines Screen method >1000 ng/mL Ql (U) Negative Normal NEGATIVE [facility] Comment on above: Result Comment: Nega tive Cutoff: <1000 ng/mL Performed By: #### 2 [id number] #### [facility] [address] [place] [address] Barbiturates Screen Ql (U) Negative Normal NEGATIVE [facility] Comment on above: Result Comment: Nega tive Cutoff: <200 ng/mL Performed By: #### 2 712380 #### [facility] [address] [place] [address] Benzodiazepines Ql (U) Negative Normal NEGATIVE [facility] Comment on above: Result Comment: Nega tive Cutoff: <200 ng/mL Performed By: #### 2 047621 #### [facility] [address] [place] [address] Cannabinoids Screen Ql (U) Negative Normal NEGATIVE [facility] Comment on above: Result Comment: Nega tive Cutoff: <50 ng/mL Performed By: #### 2 771291 #### [facility] [address] [place] [address] Cocaine Ql (U) Negative Normal NEGATIVE [facility] Comment on above: Result Comment: Nega tive Cutoff: <300 ng/mL Performed By: #### 2 390566 #### [facility] [address] [place] [address] Opiates Screen Ql (U) Negative Normal NEGATIVE Fis [facility] Comment on above: Result Comment: Nega tive Cutoff: <300 ng/mL Performed By: #### 2 036777 #### [facility] [address] [place] [address] Phencyclidine Screen method >25 ng/mL Ql (U) Negative Normal NEGATIVE [facility] Comment on above: Result Comment: Nega tive Cutoff: <25 ng/mL These drug screen results are to be used for medical (i.e., treatment) purposes only. Unconfirmed drug screening results must not be used for non-medical purposes (e.g., employment testing, legal testing). Performed By: #### 2 [id number] #### [facility] [address] [place] [address] U Fentanyl Positive Abnormal NEGATIVE [facility] Comment on above: Result [...] testing, legal testing). Performed By: #### 2 348253 #### [facility] [address] [place] [address] eGFRon 07-03-2023 eGFR 132 mL/min/1.73 m2 Normal >=59 [facility] Comment on above: Order Comment: Order added by Discern Expert. Performed By: #### 1 [id number] #### [facility] [address] [place] [address] Discharge Instructionson Discharge Instructions [id number] FF Normal [facility] ED Clinical Summaryon 2023 ED Clinical Summary (Inserted Image. Tracy ble to display) [address] [address] ED Clinical Summary Person Information Name: LYLE BAILEY Rachel Faye/[facility] Age: 33 Years : 1990 Sex: Female Language: Palestinian PCP: Amanda BARRIOS CNP Marital Status: Single [...] 06/30/2023 23:51:55 06/30/2023 23:51:55 06/30/2023 23:51:55 ADDRESS: [address] [place] [phone] [facility] DOC NOTES: MEDICAL INFORMATION: Prescriptions Given: [...] With: Address: When: Amanda BARRIOS [address] [phone] Business (1) In 3 days DIAGNOSIS: Acute alcohol intoxication; Drinking binge [facility] ED Note-Physicianon 07-01-19 ED Note-Physician Patient seen [...] will follow-up with her primary care physician. [facility] Comment on above: Result Comment: Ross goally Signed By: Darren Guzman DO\.ella\Date and Time [...] between alcoholic drinks. General instructions ? Take fnec-hin-xwuwagg and prescription medicines only as told by your health care provider. ? Do not drive after drinking any amount of alcohol. Plan for a designated feeder driver or another way to go home. ? Have someone responsible stay with you while you are intoxicated. You should notbe left alone. Contac (more content not included)... Normal [facility] ED Patient Summaryon 024 ED Patient Summary (Inserted Image. Tracy ble to display) [place] [id number] Patient Discharge Instructions Person Information Name: LYLE BAILEY Age: 33 Years Arrival Date: 06/30/2023 13:42:59 Discharge Diagnosis: Acute alcohol intoxication; Drinking binge Primary Care Physician: Amanda BARRIOS CNP Provider Information Primary Provider: Isai Hall DO Advanced Software Packager:None The exam and treatment you received in the Emergency Department were for an urgent problem and are not intended as complete care. It is important that you follow up with a doctor, nurse practitioner, or physician?s investment sales assistant for ongoing care. If your symptoms [...] With: Address: When: Amanda BARRIOS [address] [place] [address] Business (1) In 3 days In the event that this physician does not participate in your insurance network, please consult with your insurance company to find a nearby participating provider. Patient Education Materials: Alcohol Intoxication A MESSAGE TO ALL PATIENTS REGARDING OPIOIDS PRESCRIPTION OPIOIDS: WHAT YOU NEED TO KNOW Prescription opioids can be used to help relieve sbawsdhy-ew-kyrocl pain and are often prescribed following a [...] be struggling with addiction, tell your health health care specialist and ask for guidance or call SAM[employer]?S National Helpline at 0-144-349-WFJR. v Source: [place] Department of (more content not included)... Normal [facility] B hCG Qualon 06-30-2023 Beta HCG ( test) Ql Negative Normal [facility] Comment on above: Performed By: #### 2 [id number] #### [facility] [address] [place] [address] BMPon 06-30-2023 Anion gap [Moles/Vol] 19 mmol/L High 6-16 [facility] Comment on above: Performed By: #### 2 [id number] #### [facility] [address] [place] [address] Calcium [Mass/Vol] 8.9 mg/dL Normal 8.9-11.1 [facility] Comment on above: Performed By: #### 2 869408 #### [facility] [address] [place] [address] Chloride [Moles/Vol] 98 mmol/L Low 101-111 [facility] Comment on above: Performed By: #### 2 [id number] #### [facility] [address] [place] [address] CO2 [Moles/Vol] 25 mmol/L Normal 21-31 [facility] Comment on above: Performed By: #### 2 850832 #### [facility] [address] [place] [address] Creatinine [Mass/Vol] 0.6 mg/dL Normal 0.5-1.3 [facility] Comment on above: Performed By: #### 2 478369 #### [facility] [address] [place] [address] Glucose [Mass/Vol] 88 mg/dL Normal 55-199 [facility] Comment on above: Performed By: #### 2 333204 #### [facility] [address] [place] [address] Potassium [Moles/Vol] 4.0 mmol/L Normal 3.5-5.3 [facility] Comment on above: Performed By: #### 2 782224 #### [facility] [address] [place] [address] Sodium [Moles/Vol] 138 mmol/L Normal 135-145 [facility] Comment on above: Performed By: #### 2 990907 #### [facility] [address] [place] [address] Urea nitrogen [Mass/Vol] 6 mg/dL Normal 5-21 [facility] Comment on above: Performed By: #### 2 387711 #### [facility] [address] [place] [address] Urea nitrogen/Creatinine [Mass ratio] 10 No Units Normal 10-20 [facility] Comment on above: Performed By: #### 2 728224 #### [facility] [address] [place] [address] CBC w/ Auto Diffon 4 Basophils/100 WBC (Bld) 0.7 % Normal 0.0-2.0 [facility] Comment on above: Performed By: #### 2 136752 #### [facility] [address] [place] [address] Basophils/Leukocytes Auto (Bld) [Pure # fraction] 0.1 E9/L Normal 0.0-0.2 [facility] Comment on above: Performed By: #### 2 519515 #### [facility] [address] [place] [address] Eosinophils (Bld) [#/Vol] 0.0 E9/L Normal 0.0-0.5 [facility] Comment on above: Performed By: #### 2 696998 #### [facility] [address] [place] [address] Eosinophils/100 WBC (Bld) 0.2 % Normal 0.0-8.0 [facility] Comment on above: Performed By: #### 2 779486 #### [facility] [address] [place] [address] Erythrocyte distribution width (RBC) [Ratio] 14.1 % Normal 10.9-14.2 [facility] Comment on above: Performed By: #### 2 674793 #### [facility] [address] [place] [address] Hematocrit (Bld) [Volume fraction] 43.9 % Normal 34.0-46.0 [facility] Comment on above: Performed By: #### 2 683904 #### [facility] [address] [place] [address] Hemoglobin (Bld) [Mass/Vol] 15.3 g/dL Normal 12.0-16.0 [facility] Comment on above: Performed By: #### 2 722965 #### [facility] [address] [place] [address] Lymphocytes (Bld) [#/Vol] 2.7 E9/L Normal 1.0-4.0 [facility] Comment on above: Performed By: #### 2 585983 #### [facility] [address] [place] [address] Lymphocytes/100 WBC (Bld) 34.3 % Normal 14.0-50.0 [facility] Comment on above: Performed By: #### 2 442625 #### [facility] [address] [place] [address] MCH (RBC) [Entitic mass] 34.1 pg High 27.0-34.0 [facility] Comment on above: Performed By: #### 2 389358 #### [facility] [address] [place] [address] MCHC (RBC) [Mass/Vol] 34.8 g/dL Normal 31.4-36.0 [facility] Comment on above: Performed By: #### 2 582491 #### [facility] [address] [place] [address] MCV (RBC) [Entitic vol] 97.9 fL Normal 80.0-100.0 [facility] Comment on above: Performed By: #### 2 901376 #### [facility] [address] [place] [address] Monocytes (Bld) [#/Vol] 0.3 E9/L Normal 0.2-1.0 [facility] Comment on above: Performed By: #### 2 407166 #### [facility] [address] [place] [address] Neutrophils (Bld) [#/Vol] 4.8 E9/L Normal 2.0-7.5 [facility] Comment on above: Performed By: #### 2 653994 #### [facility] [address] [place] [address] Neutrophils/100 WBC (Bld) 61.2 % Normal 36.0-75.0 [facility] Comment on above: Performed By: #### 2 763718 #### [facility] [address] [place] [address] Platelet mean volume (Bld) [Entitic vol] 8.5 fL Normal 6.4-10.8 [facility] Comment on above: Performed By: #### 2 638193 #### [facility] [address] [place] [address] Platelets (Bld) [#/Vol] 202.0 E9/L Normal 150.0-500.0 [facility] Comment on above: Performed By: #### 2 325524 #### [facility] [address] [place] [address] RBC (Bld) [#/Vol] 4.5 E12/L Normal 4.3-5.9 [facility] Comment on above: Performed By: #### 2 830238 #### [facility] [address] [place] [address] WBC corrected for nucl RBC Auto (Bld) [#/Vol] 7.9 E9/L Normal 4.0-11.0 [facility] Comment on above: Performed By: #### 2 027073 #### [facility] [address] [place] [address] CHEMISTRYOrdered By: SYSTEM SYSTEM on 06-30-2023 Amphetamines [...] for Treatmenton 06-11 Consent for Treatment [id number] FF Normal [facility] ED Note-Physicianon 06-30-19 24 ED Note-Physician [...] 2 mg/mL Injection, 1 mg, IV Push [id number] [F], 50 mg, IV Push Haldol 5 mg/mL Injection, 5 mg, IntraMuscular NS 1000 ml Bolus, 1000 mL, IV Sodium Chloride 0.9% IV Paula 50 mL [F] 50 mL + utxudp4Syrrnznxl [F] 100 mg, IV Piggyback Zofran 4 mg/2 mL Injection, 4 mg, IV Push Disposition Plan Patient Discharge Condition Stable Discharge Prescription List Prescriptions No active prescription medications Follow-up No qualifying data available Problem List/Past Medical History Ongoin (more content not included)... Normal [facility] Comment on above: Result Comment: Elec tronically Signed By: Isai Hall DO.br\Date and Time Signed: 06/30/23 18:08 EDT Ethanolon 06-30-2023 Ethanol Lvl 437 mg/dL Abnormal <=11 [facility] Comment on above: Result Comment: Crit ical Result Verified by Repeat Analysis Critical Result [id number] Called to and read back by: LEXI EWING at: 06/30/2023 15:36:41 by:EVI Performed By: #### 2 [id number] #### [facility] [address] [place] [address] HEMATOLOGYOrdered By: SYSTEM SYSTEM on 06-30-2023 Basophils/100 [...] 06-30-2023 Albumin [Mass/Vol] 4.4 g/dL Normal 3.3-5.0 [facility] Comment on above: Performed By: #### 2 129483 #### [facility] [address] [place] [address] Albumin/Globulin (S) [Mass conc ratio] 1.2 Normal 1.1-2.2 [facility] Comment on above: Performed By: #### 2 776087 #### [facility] [address] [place] [address] ALP [Catalytic activity/Vol] 133 Int._Unit/L High 21-98 [facility] Comment on above: Performed By: #### 2 349838 #### [facility] [address] [place] [address] ALT No additional P-5'-P [Catalytic activity/Vol] 135 Int._Unit/L High 6-46 [facility] Comment on above: Performed By: #### 2 823618 #### [facility] [address] [place] [address] AST [Catalytic activity/Vol] 312 Int._Unit/L High 5-43 [facility] Comment on above: Performed By: #### 2 905914 #### [facility] [address] [place] [address] Bilirubin [Mass/Vol] 0.8 mg/dL Normal 0.0-1.1 [facility] Comment on above: Performed By: #### 2 663734 #### [facility] [address] [place] [address] Bilirubin.direct [Mass/Vol] 0.3 mg/dL Normal 0.0-0.4 [facility] Comment on above: Performed By: #### 2 802927 #### [facility] [address] [place] [address] Bilirubin.indirect [Mass or moles/Vol] 0.5 mg/dL Normal 0.1-0.9 [facility] Comment on above: Performed By: #### 2 173855 #### [facility] [address] [place] [address] Globulin (S) [Mass/Vol] 3.6 g/dL Normal 1.4-4.0 [facility] Comment on above: Performed By: #### 2 574048 #### [facility] [address] [place] [address] Protein [Mass/Vol] 8.0 g/dL High 6.0-7.8 [facility] Comment on above: Performed By: #### 2 087428 #### [facility] [address] [place] [address] Pre-Arrival Noteon Pre-Arrival Note Normal [facility] Progress Note-Nurseon 2023 Progress Note-Nurse Pt still resting. no outbursts Normal [facility] Progress Note-Nurse Pt resting and no lo nger belligerent Normal [facility] Progress Note-Nurse Pt accidentally ripp ed out iv. will not keep vital equipment attached. Normal [facility] Progress Note-Nurse not leaving vitals machine on. will wait til pt more calm to leave equipment on Normal [facility] SEROLOGYOrdered By: Ori Otero on 06-30-2023 Beta HCG ( test) Ql Negative (06/30/23 2:42 PM) Normal [facility] Man [facility] U Drug Screenon 06-30-2023 Amphetamines Screen method >1000 ng/mL Ql (U) Negative Normal NEGATIVE [facility] Comment on above: Result Comment: Nega tive Cutoff: <1000 ng/mL Performed By: #### 2 878479 ####[facility] [address] [place] [address] Barbiturates Screen Ql (U) Negative Normal NEGATIVE [facility] Comment on above: Result Comment: Nega tive Cutoff: <200 ng/mL Performed By: #### 2 978281 ####[facility] [address] [place] [address] Benzodiazepines Ql (U) Negative Normal NEGATIVE [facility] Comment on above: Result Comment: Nega tive Cutoff: <200 ng/mL Performed By: #### 2 234790 ####[facility] [address] [place] [address] Cannabinoids Screen Ql (U) Negative Normal NEGATIVE [facility] Comment on above: Result Comment: Nega tive Cutoff: <50 ng/mL Performed By: #### 2 822540 ####[facility] [address] [place] [address] Cocaine Ql (U) Negative Normal NEGATIVE [facility] Comment on above: Result Comment: Nega tive Cutoff: <300 ng/mL Performed By: #### 2 456472 ####[facility] [address] [place] [address] Opiates Screen Ql (U) Negative Normal NEGATIVE Fis [facility] Comment on above: Result Comment: Nega tive Cutoff: <300 ng/mL Performed By: #### 2 839815 ####[facility] [address] [place] [address] Phencyclidine Screen method >25 ng/mL Ql (U) Negative Normal NEGATIVE [facility] Comment on above: Result Comment: Nega tive Cutoff: <25 ng/mL These drug screen results are to be used for medical (i.e., treatment) purposes only. Unconfirmed drug screening results must not be used for non-medical purposes (e.g., employment testing, legal testing). Performed By: #### 2 [id number] ####[facility] [address] [place] [address] U Fentanyl Positive Abnormal NEGATIVE [facility] Comment on above: Result Comment: Crit [...] testing, legal testing). Performed By: #### 2 [id number] ####[facility] [address] [place] [address] UA with Cult Rflxon 06-30-19 24 Bilirubin Ql (U) Negative Normal Negative [facility] Comment on above: Performed By: #### 4 [id number] #### [facility] [address] [place] [address] Clarity (U) Clear Normal Clear [facility] Comment on above: Performed By: #### 4 [id number] #### [facility] [address] [place] [address] Color (U) Colorless Abnormal Yellow [facility] Comment on above: Result Comment: Micr oscopic readings are only performed on those samples that meet specific criteria set forth by [facility]. Performed By: #### 4 [id number] #### [facility] [address] [place] [address] Glucose Ql (U) Negative Normal Negative [facility] Comment on above: Performed By: #### 4 [id number] #### [facility] [address] [place] [address] Hemoglobin Auto test strip (U) [Mass/Vol] Negative Normal Negative [facility] Comment on above: Performed By: #### 4 [id number] #### [facility] [address] [place] [address] Ketones Auto test strip Ql (U) Negative Normal Negative [facility] Comment on above: Performed By: #### 4 [id number] #### [facility] [address] [place] [address] Leukocyte esterase Auto test strip Ql (U) Negative Normal Negative [facility] Comment on above: Performed By: #### 4 [id number] #### [facility] [address] [place] [address] Nitrite Auto test strip Ql (U) Negative Normal Negative [facility] Comment on above: Performed By: #### 4 [id number] #### [facility] [address] [place] [address] pH (U) 6.0 [pH] Invalid Interpretation Code 5.0-9.0 [facility] Comment on above: Performed By: #### 4 [id number] #### [facility] [address] [place] [address] Protein Ql (U) Negative Normal Negative [facility] Comment on above: Performed By: #### 4 [id number] #### [facility] [address] [place] [address] Specific gravity (U) [Rel density] 1.004 Invalid Interpretation Code 1.005-1.030 [facility] Comment on above: Performed By: #### 4 [id number] #### [facility] [address] [place] [address] Urobilinogen (U) [Mass/Vol] Negative Normal Negative [facility] Comment on above: Performed By: #### 4 [id number] #### [facility] [address] [place] [address] Type of Urine collection method Clean Catch Normal [facility] Comment on above: Performed By: #### 4 [id number] #### [facility] [address] [place] [address] URINALYSISOrdered By: SYSTEM SYSTEM on 06-30-2023 Bilirubin Ql (U) Negative Normal Negativemg/ d L [facility] UA Auto SS Clarity (U) Clear (06/30/23 2:47 PM) Normal Clear [facility] UA Auto SS Color (U) Colorless 3 *ABN* (06/30/23 2:47 PM) Invalid Interpretation Code Yellow [facility] UA Auto SS Comment on above: Interpretive Data: M icroscopic readings are only performed on those samples that meet specific criteria set forth by [facility]. Glucose Ql (U) Negative Normal Negativemg/d L [facility] UA Auto SS Hemoglobin Auto test strip (U) [Mass/Vol] Negative Normal Negativemg/d L FT UA Auto SS Ketones Auto test strip Ql (U) Negative Normal Negativemg/d L [facility] UA Auto SS Leukocyte esterase Auto test strip Ql (U) Negative Normal NegativeLeu/ uL [facility] UA Auto SS Nitrite Auto test strip Ql (U) Negative Normal Negativemg/d L [facility] UA Auto SS pH (U) 6.0 *NA* (06/30/23 2:47 PM) Invalid Interpretation Code 5.0 - 9.0 [facility] UA Auto SS Protein Ql (U) Negative Normal Negativemg/d L [facility] UA Auto SS Specific gravity (U) [Rel density] 1.004 *NA* (06/30/23 2:47 PM) Invalid Interpretation Code 1.005 - 1.030 [facility] UA Auto SS Urobilinogen (U) [Mass/Vol] Negative Normal Negativemg/d L [facility] UA Auto SS URINALYSISOrdered By: Isai Hall on 06-30-2023 UA Spec Desc Clean Catch (06/30/23 2:47 PM) Normal [facility] UA Auto SS eGFRon 06-30-2023 eGFR 123 mL/min/1.73 m2 Normal >=59 [facility] Comment on above: Order Comment: Order added by Discern Expert. Performed By: #### 1 [id number] #### [facility] [address] [place] [address] C Urineon 06-20-2023 Bacteria identified Cx Nom (U) Normal [facility] Comment on above: Performed By: #### 2 [id number] ####[facility] [address] [place] [address] Chlam/GC/Trich,NAAon 024 C. trachomatis rRNA MOISES+probe Ql (Unsp spec) Negative Invalid Interpretation Code Negative [facility] Comment on above: Performed By: #### 1 [id number], [id number] ####[facility] [address] [place] [address] N. gonorrhoeae rRNA MOISES+probe Ql (Unsp spec) Negative Invalid Interpretation Code Negative [facility] Comment on above: Performed By: #### 1 [id number], [id number] ####[facility] [address] [place] [address] T. vaginalis rRNA MOISES+probe Ql (Unsp spec) Positive Abnormal Negative [facility] Comment on above: Result Comment: Perf ormed at: =G [facility] [address] Santiago Chloé [id number] MD Pete Norman Performed By: #### 1 [id number], [id number] ####[facility] [address] [place] [address] Vaginitis/Vaginosis, DNA Pro beon 06-20-2023 Melvin sp rRNA Probe Ql (Vag fld) Negative Invalid Interpretation Code Negative [facility] Comment on above: Performed By: #### 1 [id number], [id number] ####[facility] [address] [place] [address] G. vaginalis rRNA Probe Ql (Genital specimen) Positive Abnormal Negative [facility] Comment on above: Performed By: #### 1 [id number], [id number] ####[address] [address] T. vaginalis rRNA Probe Ql (Genital specimen) Positive Abnormal Negative [facility] Comment on above: Result Comment: Perf ormed at: [facility] [address] [place], [place] [id number] PhD Sriram Arceo Performed By: #### 1 [id number], [id number] ####[address] [address] Ambulatory Visit Summaryon 0 06-17-2023 Ambulatory Visit Summary Normal [facility] Family Medicine Office/Clini c Noteon 06-17-2023 Family Medicine Office/Clinic Note Normal [facility] Comment on above: Result Comment: Elec tronically Signed By: Rainer HARO, Mike Church.ella\Date and Time Signed: 06/17/23 16:06 EDT Patient Educationon 06-17-19 Patient Education Normal [facility] C Urineon 06-05-2023 Bacteria identified Cx Nom (U) Normal [facility] Comment on above: Performed By: #### 4 [id number], [id number] ####[facility] [address] [place] [address] Discharge Instructionson Discharge Instructions [id number] F Normal [facility] ED Clinical Summaryon 2023 ED Clinical Summary Normal Robby r [facility] ED Note-Physicianon 06-04-19 ED Note-Physician Normal [facility] Comment on above: Result Comment: Elec tronically Signed By: Elliott Hicks PA-C\.br\Date and Time Signed: 06/03/23 23:01 EDT\.br\Electronically Co-Signed By: Kerry Linton DO\.br\Date and Time Co-Signed: 06/03/23 23:19 EDT ED Patient Education Noteon 06-04-2023 ED Patient Education Note Normal [facility] ED Patient Summaryon ED Patient Summary Normal [facility] B hCG Qualon 06-03-2023 Beta HCG ( test) Ql Negative Normal [facility] Comment on above: Order Comment: Phleb Lorie attempted to draw and was unsuccessful, phleb Diamante is on her way to draw. [email or web address] 06/03/2023 21:06:55 EDT Performed By: #### 2 1255733, 2108521, 4804988, 0465005, 1699974, 87896128 ####[facility] [address] [place] [address] BMPon 06-03-2023 Anion gap [Moles/Vol] 9 mmol/L Normal 6-16 [facility] Comment on above: Performed By: #### 2 7047952, 3434404, 1494765, 8147299, 8539685, 42311694 ####[facility] [address] [place] [address] Calcium [Mass/Vol] 8.9 mg/dL Normal 8.9-11.1 [facility] Comment on above: Performed By: #### 2 7856548, 3848518, 1189855, 4371331, 5703117, 37544993 ####[facility] [address] [place] [address] Chloride [Moles/Vol] 108 mmol/L Normal 101-111 [facility] Comment on above: Performed By: #### 2 1512783, 6549928, 4849073, 6079111, 3462017, 79714509 ####[facility] [address] [place] [address] CO2 [Moles/Vol] 28 mmol/L Normal 21-31 [facility] Comment on above: Performed By: #### 2 6639399, 2043064, 7090319, 5445367, 5681138, 93143286 ####[facility] [address] [place] [address] Creatinine [Mass/Vol] 0.6 mg/dL Normal 0.5-1.3 [facility] Comment on above: Performed By: #### 2 3672261, 5497679, 5093244, 1311029, 0911000, 40140269 ####[facility] [address] [place] [address] Glucose [Mass/Vol] 89 mg/dL Normal 55-199 [facility] Comment on above: Performed By: #### 2 7439531, 4839694, 5629032, 4505917, 0440270, 63204207 ####[facility] [address] [place] [address] Potassium [Moles/Vol] 4.0 mmol/L Normal 3.5-5.3 [facility] Comment on above: Performed By: #### 2 0600557, 5380675, 9948512, 4242693, 6915986, 60518689 ####[facility] [address] [place] [address] Sodium [Moles/Vol] 141 mmol/L Normal 135-145 [facility] Comment on above: Performed By: #### 2 1980655, 6799273, 1385803, 9097138, 3706932, 26497526 ####[facility] [address] [place] [address] Urea nitrogen [Mass/Vol] mg/dL Low 5-21 [facility] Comment on above: Performed By: #### 2 3670544, 0644059, 4708672, 9883185, 0240277, 34403996 ####[facility] [address] [place] [address] Urea nitrogen/Creatinine [Mass ratio] 7 No Units Low 10-20 [facility] Comment on above: Performed By: #### 2 6783306, 1549639, 6666532, 7384208, 0413330, 57866652 ####[address] [address] CBC w/ Auto Diffon 4 Basophils/100 WBC (Bld) 0.9 % Normal 0.0-2.0 [facility] Comment on above: Performed By: #### 2 4925166, 8098473, 9637783, 2588955, 1692797, 90953650 ####[address] [address] Basophils/Leukocytes Auto (Bld) [Pure # fraction] 0.0 E9/L Normal 0.0-0.2 [facility] Comment on above: Performed By: #### 2 5100175, 6692771, 9592589, 5564714, 1294437, 06927994 ####[address] [address] Eosinophils (Bld) [#/Vol] 0.0 E9/L Normal 0.0-0.5 [facility] Comment on above: Performed By: #### 2 0331778, 4440913, 0837158, 8128801, 2678454, 66853186 ####[address] [place] [address] Eosinophils/100 WBC (Bld) 0.7 % Normal 0.0-8.0 [facility] Comment on above: Performed By: #### 2 4377771, 7958646, 0967164, 4504305, 5535897, 66444699 ####[address] [address] Erythrocyte distribution width (RBC) [Ratio] 13.8 % Normal 10.9-14.2 [facility] Comment on above: Performed By: #### 2 8043484, 2514970, 5952258, 8132281, 9280606, 12515028 ####[place] [address] Hematocrit (Bld) [Volume fraction] 39.2 % Normal 34.0-46.0 [facility] Comment on above: Performed By: #### 2 5814363, 3084833, 1698555, 2611714, 5683517, 10247269 ####[address] [address] Hemoglobin (Bld) [Mass/Vol] 13.0 g/dL Normal 12.0-16.0 [facility] Comment on above: Performed By: #### 2 4129134, 4273524, 0207198, 8233338, 5790592, 02369271 ####[address] [address] Lymphocytes (Bld) [#/Vol] 1.7 E9/L Normal 1.0-4.0 [facility] Comment on above: Performed By: #### 2 9692699, 3581456, 7989100, 2921780, 9117457, 32011992 ####[address] [address] Lymphocytes/100 WBC (Bld) 37.8 % Normal 14.0-50.0 [facility] Comment on above: Performed By: #### 2 9977910, 4034494, 4686892, 8426836, 8193820, 10782042 ####[address] [address] MCH (RBC) [Entitic mass] 33.5 pg Normal 27.0-34.0 [facility] Comment on above: Performed By: #### 2 1246144, 1520198, 2274737, 5245163, 9990641, 15429332 ####[place] [address] MCHC (RBC) [Mass/Vol] 33.2 g/dL Normal 31.4-36.0 [facility] Comment on above: Performed By: #### 2 3384523, 2866949, 7602203, 5817264, 1706125, 47501207 ####[place] [address] MCV (RBC) [Entitic vol] 100.9 fL High 80.0-100.0 [facility] Comment on above: Performed By: #### 2 2469220, 4128210, 4763962, 5489578, 1526503, 62666571 ####[place] [address] Monocytes (Bld) [#/Vol] 0.3 E9/L Normal 0.2-1.0 [facility] Comment on above: Performed By: #### 2 4885726, 0389760, 6289563, 3754331, 2053426, 41975096 ####[place] [address] Neutrophils (Bld) [#/Vol] 2.5 E9/L Normal 2.0-7.5 [facility] Comment on above: Performed By: #### 2 8781856, 7821869, 7737350, 0297705, 4519014, 39037950 ####[address] [address] Neutrophils/100 WBC (Bld) 53.9 % Normal 36.0-75.0 [facility] Comment on above: Performed By: #### 2 9466986, 3231325, 2011489, 9691604, 8356370, 43862292 ####[facility] [address] [place] 7346257 Platelet 149.0 E9/L Low 150.0-500.0 [facility] Comment on above: Performed By: #### 2 8545071, 8612541, 3620015, 7893374, 0011275, 20899247 ####[place] [address] [place] 7346257 Platelet mean volume (Bld) [Entitic vol] 8.3 fL Normal 6.4-10.8 [facility] Comment on above: Performed By: #### 2 2897620, 2064885, 6523958, 1493375, 3528892, 88406738 ####[address] [address] RBC (Bld) [#/Vol] 3.9 E12/L Low 4.3-5.9 [facility] Comment on above: Performed By: #### 2 0454821, 1814557, 1934368, 1657582, 5694252, 84720252 ####[address] [address] WBC corrected for nucl RBC Auto (Bld) [#/Vol] 4.6 E9/L Normal 4.0-11.0 [facility] Comment on above: Performed By: #### 2 1445296, 0270191, 4385852, 6427495, 0151807, 84823524 ####[place] [address] [place] [address] CHEMISTRYOrdered By: SYSTEM SYSTEM on 06-03-2023 Albumin [...] for Treatmenton 05-13 Consent for Treatment [id number] F Normal [facility] HEMATOLOGYOrdered By: Arlene Contreras on 06-03-2023 [...] 06-03-2023 Albumin [Mass/Vol] 4.0 g/dL Normal 3.3-5.0 [facility] Comment on above: Performed By: #### 2 3894130, 3459788, 2752345, 0271301, 7713937, 93650462 ####[facility] [address] [place] [address] Albumin/Globulin (S) [Mass conc ratio] 1.3 Normal 1.1-2.2 [facility] Comment on above: Performed By: #### 2 2349353, 5025683, 9319220, 5922117, 7360640, 37672728 ####[facility] [address] [place] [address] ALP [Catalytic activity/Vol] 133 Int._Unit/L High 21-98 [facility] Comment on above: Performed By: #### 2 8652624, 3791088, 8579267, 9895318, 7777090, 23559278 ####[facility] [address] [place] [address] ALT No additional P-5'-P [Catalytic activity/Vol] 131 Int._Unit/L High 6-46 [facility] Comment on above: Performed By: #### 2 7678326, 4083315, 4234875, 4539883, 3373637, 81957543 ####[facility] [address] [place] [address] AST [Catalytic activity/Vol] 192 Int._Unit/L High 5-43 [facility] Comment on above: Performed By: #### 2 1660754, 2097478, 8721380, 6263116, 6084691, 37826407 ####[place] [address] [place] [address] Bilirubin [Mass/Vol] 0.4 mg/dL Normal 0.0-1.1 [facility] Comment on above: Performed By: #### 2 9712170, 6745414, 9216722, 7243007, 0519701, 34591967 ####[address] [address] Bilirubin.direct [Mass/Vol] 0.1 mg/dL Normal 0.0-0.4 [facility] Comment on above: Performed By: #### 2 6620595, 8503604, 6620120, 2422560, 4572738, 83342123 ####[address] [address] Bilirubin.indirect [Mass or moles/Vol] 0.3 mg/dL Normal 0.1-0.9 [facility] Comment on above: Performed By: #### 2 3181527, 8265873, 3241803, 4276459, 8584507, 51144776 ####[address] [address] Globulin (S) [Mass/Vol] 3.1 g/dL Normal 1.4-4.0 [facility] Comment on above: Performed By: #### 2 7445266, 9471895, 7082830, 9928414, 2204278, 39367078 ####[address] [address] Protein [Mass/Vol] 7.1 g/dL Normal 6.0-7.8 [facility] Comment on above: Performed By: #### 2 8779978, 4334615, 8983729, 9039675, 0821309, 37579518 ####[address] [address] Lipase Levelon 06-03-2023 Lipase [Catalytic activity/Vol] 25 U/L Normal 13-58 [facility] Comment on above: Performed By: #### 2 3593238, 1261702, 8950352, 1892745, 0589277, 32063872 ####[facility] [address] [place] 7[address]257 SEROLOGYOrdered By: Domitila gaffney on 06-03-2023 Beta HCG ( test) Ql Negative (06/03/23 9:12 PM) Normal [facility] Man Sero UA with Cult Rflxon 06-03-19 24 Bacteria Auto Ql (U) 1+ [id number] Abnormal Trace [facility] Comment on above: Performed By: #### 4 714577158, 3751784 ####[facility] [address] [place], [place] [address] Bilirubin Ql (U) Negative Normal Negative [facility] Comment on above: Performed By: #### 4 129700751, 3063013 ####[place] [address] Clarity (U) Clear Normal Clear [facility] Comment on above: Performed By: #### 4 679512736, 4507722 ####[place] [address] Color (U) Light-Yellow Normal Yellow [facility] Comment on above: Result Comment: Micr oscopic readings are only performed on those samples that meet specific criteria set forth by [facility]. Performed By: #### 4 290286217, 3142467 ####[facility] [address] [place] 7[address]257 Epithelial cells.squamous Auto (Urine sed) [#/Area] 0-2 Normal 0-2 [facility] Comment on above: Performed By: #### 4 135949745, 4698866 ####[facility] [address] [place] [address] Glucose Ql (U) Negative Normal Negative [facility] Comment on above: Performed By: #### 4 084097608, 2034841 ####[facility] [address] [place] [address] Hemoglobin Auto test strip (U) [Mass/Vol] Trace Abnormal Negative [facility] Comment on above: Performed By: #### 4 631197196, 8888114 ####[address] [address] Ketones Auto test strip Ql (U) Negative Normal Negative [facility] Comment on above: Performed By: #### 4 907217069, 8605724 ####[place] [address] Leukocyte esterase Auto test strip Ql (U) 250 Oracio/uL Abnormal Negative [facility] Comment on above: Performed By: #### 4 427942138, 9736470 ####[address] [address] Mucus Auto Ql (U) Trace Normal Negative [facility] Comment on above: Performed By: #### 4 108707553, 8639676 ####[place] [address] Nitrite Auto test strip Ql (U) Negative Normal Negative [facility] Comment on above: Performed By: #### 4 989930144, 2001573 ####[place] [address] pH (U) 6.0 [pH] Invalid Interpretation Code 5.0-9.0 [facility] Comment on above: Performed By: #### 4 129900176, 2465085 ####[address] [address] Protein Ql (U) Negative Normal Negative [facility] Comment on above: Performed By: #### 4 183048851, 9907024 ####[address] [address] RBC Ql (U) 0-3 Normal 0-3 [facility] Comment on above: Performed By: #### 4 868572689, 4759937 ####[address] [address] Specific gravity (U) [Rel density] 1.005 Invalid Interpretation Code 1.005-1.030 [facility] Comment on above: Performed By: #### 4 253231689, 4760238 ####[facility] [address] [place] 7[address]257 Urobilinogen (U) [Mass/Vol] Negative Normal Negative [facility] Comment on above: Performed By: #### 4 628427932, 7473173 ####[facility] [address] [place], [place] [address] WBC Auto (Urine sed) [#/Area] 16-25 Abnormal 0-5 [facility] Comment on above: Performed By: #### 4 844733267, 1513449 ####[place] [address] Type of Urine collection method Clean Catch Normal [facility] Comment on above: Performed By: #### 4 090466376, 5473767 ####[facility] [address] [place] [address] URINALYSISOrdered By: SYSTEM SYSTEM on 06-03-2023 Bacteria Auto Ql (U) 1+ graded/HPF Invalid Interpretation Code Tracegraded/ HPF FT UA Auto SS Bilirubin Ql (U) Negative Normal Negativemg/ d L FT UA Auto SS Clarity (U) Clear (06/03/23 9:07 PM) Normal Clear [facility] UA Auto SS Color (U) Light-Yellow 1 (06/03/23 9:07 PM) Normal Yellow [facility] UA Auto SS Comment on above: Interpretive Data: M icroscopic readings are only performed on those samples that meet specific criteria set forth by [facility]. Epithelial cells.squamous Auto (Urine sed) [...] Oracio/uL Oracio/uL Invalid Interpretation Code NegativeLeu/ uL [facility] UA Auto SS Mucus Auto Ql (U) Trace graded/LPF Normal Negati vegrad ed/LPF FT UA Auto SS Nitrite Auto test strip Ql (U) Negative Normal Negativemg/d L [facility] UA Auto SS pH (U) 6.0 *NA* (06/03/23 9:07 PM) Invalid Interpretation Code 5.0 - 9.0 FT [...] Desc Clean Catch (06/03/23 9:07 PM) Normal [facility] UA Auto SS eGFRon 06-03-2023 eGFR 123 mL/min/1.73 m2 Normal >=59 [facility] Comment on above: Order Comment: Order added by Discern Expert. Performed By: #### 2 4517505, 8797051, 1247170, 3291963, 9111411, 03994733 ####[facility] [address] [place] [address] ED Note-Physicianon 04-26-19 ED Note-Physician [id number] F Normal [facility] Alanine aminotransferase [En zymatic activity/volume] in Serum or PlasmaOrdered By: Diane Paez on 04-25-2023 ALT [Catalytic activity/Vol] 221 U/L High 7-52 [facility] Comment on above: Performed By: #### L IPASE, BMP, HEPATIC, HCGQUAL, CBC #### [facility] [address] [place] [address] Albumin [Mass/volume] in Ser um or Plasma by Bromocresol green (BCG) dye binding methoOrdered By: Diane Paez on 04-25-2023 Albumin BCG dye [Mass/Vol] 4.5 g/dL 3.5-5.7 [facility] Alkaline phosphatase [Enzyma tic activity/volume] in Serum or PlasmaOrdered By: Diane Paez on 04-25-2023 ALP [Catalytic activity/Vol] 94 U/L Normal 34-104 [facility] Comment on above: Performed By: #### L IPASE, BMP, HEPATIC, HCGQUAL, CBC #### [address] Aspartate aminotransferase [ Enzymatic activity/volume] in Serum or PlasmaOrdered By: Diane Paez on 04-25-2023 AST [Catalytic activity/Vol] 281 U/L High 13-39 [facility] Comment on above: Performed By: #### L IPASE, BMP, HEPATIC, HCGQUAL, CBC #### [address] Automated basophil %Ordered By: Diane Paez on 04-25-2023 Basophils/100 WBC (Bld) 1.0 % Normal . [facility] Comment on above: Performed By: #### L IPASE, BMP, HEPATIC, HCGQUAL, CBC #### [address] Automated basophil countOrde red By: Diane Paez on 04-25-2023 Basophils (Bld) [#/Vol] 0.0 10*3/uL Normal 0.0-0.2 [facility] Comment on above: Result Comment: PERF ORMED BY: [place] [address] PATHOLOGIST HEADING REPAIRER LEE CARDOSO M.D. Performed By: #### L IPASE, BMP, HEPATIC, HCGQUAL, CBC #### [address] Automated blood monocyte cou ntOrdered By: Diane Paez on 04-25-2023 Monocytes (Bld) [#/Vol] 0.2 10*3/uL Normal 0.0-0.8 [facility] Comment on above: Performed By: #### L IPASE, BMP, HEPATIC, HCGQUAL, CBC #### [facility] [address] [place] [address] Automated eosinophil %Ordere d By: Diane Paez on 04-25-2023 Eosinophils/100 WBC (Bld) 1.1 % Normal . [facility] Comment on above: Performed By: #### L IPASE, BMP, HEPATIC, HCGQUAL, CBC #### [facility] [address] [place] [address] Automated eosinophil countOr dered By: Diane Paez on 04-25-2023 Eosinophils (Bld) [#/Vol] 0.1 10*3/uL Normal 0.0-0.45 [facility] Comment on above: Performed By: #### L IPASE, BMP, HEPATIC, HCGQUAL, CBC #### [facility] [address] [place] [address] Automated erythrocytes count in urine sediment (number/area)Ordered By: Diane Paez on 04-25-2023 RBC Auto (Urine sed) [#/Area] 0-1 [HPF] 0-4 [facility] Automated leukocytes count i n urine sediment (number/area)Ordered By: Diane Paez on 04-25-2023 WBC Auto (Urine sed) [#/Area] 1-2 [HPF] 0-4 [facility] Automated monocyte %Ordered By: Diane Paez on 04-25-2023 Monocytes/100 WBC (Bld) 4.5 % Normal . [facility] Comment on above: Performed By: #### L IPASE, BMP, HEPATIC, HCGQUAL, CBC #### [facility] [address] [place] [address] Automated neutrophil %Ordere d By: Diane Paez on 04-25-2023 Neutrophils/100 WBC (Bld) 52.5 % Normal . [facility] Comment on above: Performed By: #### L IPASE, BMP, HEPATIC, HCGQUAL, CBC #### [facility] [address] [place] [address] Automated urine color determ inationOrdered By: Diane Paez on 04-25-2023 Color (U) Yellow Normal Yellow [facility] Comment on above: Order Comment: Name Collection Type:: Clean-Voided Midstream Performed By: #### E ODALIS, MG, CMP, CBC #### [address] Basic Metabolic Panelon 04-11 Creatinine Clr Calc Pharmacy 116.68 Normal [facility] Comment on above: Performed By: #### L IPASE, BMP, HEPATIC, HCGQUAL, CBC #### [address] GFR/1.73 sq M.predicted MDRD (S/P/Bld) [Vol rate/Area] mL/min/{1.73_m2} Normal [facility] Comment on above: Performed By: #### L IPASE, BMP, HEPATIC, HCGQUAL, CBC #### [address] Bilirubin Test strip Ql (U)O rdered By: Diane Paez on 04-25-2023 Bilirubin Ql (U) Negative Negative [facility] Bilirubin.direct [Mass/volum e] in Serum or PlasmaOrdered By: Diane Paez on 04-25-2023 Bilirubin.direct [Mass/Vol] 0.10 mg/dL 0.03-0.18 [facility] Bilirubin.total [Mass/volume ] in Serum or PlasmaOrdered By: Diane Paez on 04-25-2023 Bilirubin [Mass/Vol] 0.5 mg/dL Normal 0.3-1.0 [facility] Comment on above: Performed By: #### L IPASE, BMP, HEPATIC, HCGQUAL, CBC #### [address] Calcium [Mass/volume] in Ser um or PlasmaOrdered By: Diane Paez on 04-25-2023 Calcium [Mass/Vol] 8.9 mg/dL Normal 8.6-10.3 [facility] Comment on above: Performed By: #### L IPASE, BMP, HEPATIC, HCGQUAL, CBC #### [facility] [address] Carbon dioxide, total [Moles /volume] in Serum or PlasmaOrdered By: Diane Paez on 04-25-2023 CO2 [Moles/Vol] 27.0 mmol/L Normal 21.0-31.0 [facility] Comment on above: Performed By: #### L IPASE, BMP, HEPATIC, HCGQUAL, CBC #### [facility] [address] [place] [address] [place] Chloride [Moles/volume] in S marbella or PlasmaOrdered By: Diane Paez on 04-25-2023 Chloride [Moles/Vol] 100 mmol/L Normal 98-107 [facility] Comment on above: Performed By: #### L IPASE, BMP, HEPATIC, HCGQUAL, CBC #### [address] Choriogonadotropin.beta subu nit [Units/volume] in Serum or PlasmaOrdered By: Diane Paez on 04-25-2023 HCG.beta subunit Qn Negative [facility] Complete Blood Count Auto Di ffon 04-25-2023 Mean Corpuscular HGB Conc 35.0 g/dL Normal 32.0-35.0 [facility] Comment on above: Performed By: #### L IPASE, BMP, HEPATIC, HCGQUAL, CBC #### [facility] [address] [place] [address] [place] Monocytes/100 WBC (Bld) 17.84 % Normal 0.00-20.00 [facility] Comment on above: Performed By: #### L IPASE, BMP, HEPATIC, HCGQUAL, CBC #### [facility] [address] [place] [address] [place] NRBC% 0.2 /100{WBC} Normal 0-0.5 [facility] Comment on above: Performed By: #### L IPASE, BMP, HEPATIC, HCGQUAL, CBC #### [facility] [address] Creatinine [Mass/volume] in Serum or PlasmaOrdered By: Diane Paez on 04-25-2023 Creatinine [Mass/Vol] 0.65 mg/dL Normal 0.60-1.20 [facility] Comment on above: Performed By: #### L IPASE, BMP, HEPATIC, HCGQUAL, CBC #### [address] Dipstick and Microscopicon 0 04-25-2023 Appearance (U) Clear Normal Clear [facility] Comment on above: Order Comment: Name Collection Type:: Clean-Voided Midstream Performed By: #### E ODALIS, MG, CMP, CBC #### [address] Bacteria,Urine None Seen Normal None Seen [facility] Comment on above: Order Comment: Name Collection Type:: Clean-Voided Midstream Performed By: #### E ODALIS, MG, CMP, CBC #### [address] Bilirubin,Urine Negative Normal Negative [facility] Comment on above: Order Comment: Name Collection Type:: Clean-Voided Midstream Performed By: #### E ODALIS, MG, CMP, CBC #### [address] Glucose Ql (U) Normal Normal Normal [facility] Comment on above: Order Comment: Name Collection Type:: Clean-Voided Midstream Performed By: #### E ODALIS, MG, CMP, CBC #### [address] Hyaline Casts,Urine None Seen Normal 0-8 [facility] Comment on above: Order Comment: Name Collection Type:: Clean-Voided Midstream Result Comment: PERF ORMED BY: [place] [address] PATHOLOGIST HEADING REPAIRER LEE CARDOSO M.D. Performed By: #### E ODALIS, MG, CMP, CBC #### [address] Ketones Ql (U) Negative Normal Negative [facility] Comment on above: Order Comment: Name Collection Type:: Clean-Voided Midstream Performed By: #### E ODALIS, MG, CMP, CBC #### [address] Leukocyte esterase Test strip Ql (U) Negative Normal Negative [facility] Comment on above: Order Comment: Name Collection Type:: Clean-Voided Midstream Performed By: #### E ODALIS, MG, CMP, CBC #### [place] [address] [place] Nitrite,Urine Negative Normal Negative [facility] Comment on above: Order Comment: Name Collection Type:: Clean-Voided Midstream Performed By: #### E ODALIS, MG, CMP, CBC #### [address] Occult Blood,Urine Negative Normal Negative [facility] Comment on above: Order Comment: Name Collection Type:: Clean-Voided Midstream Result Comment: PERF ORMED BY: [place] [address] PATHOLOGIST HEADING REPAIRER LEE CARDOSO M.D. Performed By: #### E ODALIS, MG, CMP, CBC #### [address] Protein,Urine Trace High Negative [facility] Comment on above: Order Comment: Name Collection Type:: Clean-Voided Midstream Performed By: #### E ODALIS, MG, CMP, CBC #### [address] RBC LM.HPF (Urine sed) [#/Area] 0 /[HPF] Normal 0-4 [facility] Comment on above: Order Comment: Name Collection Type:: Clean-Voided Midstream Performed By: #### E ODALIS, MG, CMP, CBC #### [address] Specificy [place],Urine 1.006 Normal 1.001-1.030 [facility] Comment on above: Order Comment: Name Collection Type:: Clean-Voided Midstream Performed By: #### E ODALIS, MG, CMP, CBC #### [address] Squamous Epithelial Cell,Urine 0-1 Normal 0-2 [facility] Comment on above: Order Comment: Name Collection Type:: Clean-Voided Midstream Performed By: #### E ODALIS, MG, CMP, CBC #### [address] Urobilinogen,Urine Normal Normal Normal [facility] Comment on above: Order Comment: Name Collection Type:: Clean-Voided Midstream Performed By: #### E ODALIS, MG, CMP, CBC #### [address] WBC,Urine 1-2 Normal 0-4 [facility] Comment on above: Order Comment: Name Collection Type:: Clean-Voided Midstream Performed By: #### E ODALIS, MG, CMP, CBC #### [address] Erythrocyte distribution wid th [Ratio] by Automated countOrdered By: Diane Paez on 04-25-2023 Erythrocyte distribution width (RBC) [Ratio] 13.3 % Normal 11.9-15.3 [facility] Comment on above: Performed By: #### L IPASE, BMP, HEPATIC, HCGQUAL, CBC #### [address] Erythrocytes [#/volume] in B lood by Automated countOrdered By: Diane Paez on 04-25-2023 RBC (Bld) [#/Vol] 4.22 10*6/uL Normal 3.60-5.[address] [facility] Comment on above: Performed By: #### L IPASE, BMP, HEPATIC, HCGQUAL, CBC #### [address] Glucose [Mass/volume] in Ser um or PlasmaOrdered By: Diane Paez on 04-25-2023 Glucose [Mass/Vol] 85 mg/dL Normal 70-100 [facility] Comment on above: ADA recommended refe rence rangeRandom Glucose Reference Range is dependent on time and content of last meal. Glucose of more than 200 mg/dL in a nonstressed, ambulatory subject supports the diagnosis of Diabetes Mellitus. Result Comment: [place] om Glucose Reference Range is dependent on time and content of last meal. Glucose of more than 200 mg/dL in a nonstressed, ambulatory subject supports the diagnosis of Diabetes Mellitus. ADA recommended reference range Performed By: #### L IPASE, BMP, HEPATIC, HCGQUAL, CBC #### [address] HCG,Qualitative Serumon 04-11 HCG,Qualitative Serum Negative Normal [facility] Comment on above: Result Comment: PERF ORMED BY: [place] [address] PATHOLOGIST HEADING REPAIRER LEE CARDOSO M.D. Performed By: #### E ODALIS, MG, CMP, CBC #### [address] Hematocrit [Volume Fraction] of Blood by Automated countOrdered By: Diane Paez on 04-25-2023 Hematocrit (Bld) [Volume fraction] 40.8 % Normal 34.0-46.4 [facility] Comment on above: Performed By: #### L IPASE, BMP, HEPATIC, HCGQUAL, CBC #### [address] Hemoglobin [Mass/volume] in BloodOrdered By: Diane Paez on 04-25-2023 Hemoglobin (Bld) [Mass/Vol] 14.3 g/dL Normal 11.8-15.4 [facility] Comment on above: Performed By: #### L IPASE, BMP, HEPATIC, HCGQUAL, CBC #### [address] Hepatic Panelon 04-25-2023 Albumin [Mass/Vol] 4.5 g/dL Normal 3.5-5.7 [facility] Comment on above: Performed By: #### L IPASE, BMP, HEPATIC, HCGQUAL, CBC #### [facility] [address] Bilirubin,Indirect 0.4 mg/dL Normal [facility] Comment on above: Performed By: #### L IPASE, BMP, HEPATIC, HCGQUAL, CBC #### [facility] [address] Bilirubin.indirect [Mass/Vol] 0.10 mg/dL Normal 0.03-0.18 [facility] Comment on above: Performed By: #### L IPASE, BMP, HEPATIC, HCGQUAL, CBC #### [facility] [address] Ketones Auto test strip (U) [Mass/Vol]Ordered By: Diane Paez on 04-25-2023 Ketones (U) [Mass/Vol] Negative Negative [facility] Laboratory - UrinalysisOrder ed By: Diane Paez on 04-25-2023 Hyaline casts LM Ql (Urine sed) None seen [LPF] 0-8 [facility] Leukocytes [#/volume] correc jose for nucleated erythrocytes in Blood by Automated counOrdered By: Diane Paez on 04-25-2023 WBC corrected for nucl RBC Auto (Bld) [#/Vol] 4.7 10*3/uL 3.8-11.6 [facility] Leukocytes [#/volume] in Blo od by Automated countOrdered By: Diane Paez on 04-25-2023 WBC (Bld) [#/Vol] 4.7 10*3/uL Normal 3.8-11.6 [facility] Comment on above: Performed By: #### L IPASE, BMP, HEPATIC, HCGQUAL, CBC #### [facility] [address] [place] [address] Lipase [Enzymatic activity/v olume] in Serum or PlasmaOrdered By: Diane Paez on 04-25-2023 Lipase [Catalytic activity/Vol] 74.0 U/L Normal 11.0-82.0 [facility] Comment on above: Performed By: #### E ODALIS, MG, CMP, CBC #### [facility] [address] Lymphocytes [#/volume] in Bl ood by Automated countOrdered By: Diane Paez on 04-25-2023 Lymphocytes (Bld) [#/Vol] 1.9 10*3/uL Normal 1.00-4.8 [facility] Comment on above: Performed By: #### L IPASE, BMP, HEPATIC, HCGQUAL, CBC #### [facility] [address] Lymphocytes/100 leukocytes i n Blood by Automated countOrdered By: Diane Paez on 04-25-2023 Lymphocytes/100 WBC (Bld) 40.9 % Normal . [facility] Comment on above: Performed By: #### L IPASE, BMP, HEPATIC, HCGQUAL, CBC #### [facility] [address] [place] [address] MCH [Entitic mass] by Automa jose countOrdered By: Diane Paez on 04-25-2023 MCH (RBC) [Entitic mass] 33.9 pg Normal 24.7-34.3 [facility] Comment on above: Performed By: #### L IPASE, BMP, HEPATIC, HCGQUAL, CBC #### [facility] [address] [place] [address] MCHC Auto (RBC) [Mass/Vol]Or dered By: Diane Paez on 04-25-2023 MCHC (RBC) [Mass/Vol] 35.0 g/dL 32.0-35.0 [facility] MCV [Entitic volume] by Auto mated countOrdered By: Diane Paez on 04-25-2023 MCV (RBC) [Entitic vol] 96.8 fL Normal 80-100 [facility] Comment on above: Performed By: #### L IPASE, BMP, HEPATIC, HCGQUAL, CBC #### [facility] [address] [place] [address] Monocyte distribution width [Entitic volume] in Blood by AutomatedOrdered By: Diane Paez on 04-25-2023 Monocyte distribution width Auto (Bld) [Entitic vol] 17.84 % 0.00-20.00 [facility] Neutrophils [#/volume] in Bl ood by Automated countOrdered By: Diane Paez on 04-25-2023 Neutrophils (Bld) [#/Vol] 2.5 10*3/uL Normal 1.8-7.7 [facility] Comment on above: Performed By: #### L IPASE, BMP, HEPATIC, HCGQUAL, CBC #### [facility] [address] Nitrite Test strip Ql (U)Ord ered By: Diane Paez on 04-25-2023 Nitrite Ql (U) Negative Negative [facility] No Panel InformationOrdered By: Diane Paez on 04-25-2023 Estimated GFR (CKD-EPI) > 60.0 mL/Min [facility] Creatinine Clearance (Chem 116.68 [facility] Nucleated erythrocytes [Pres ence] in Blood by Automated countOrdered By: Diane Paez on 04-25-2023 Nucleated RBC Auto Ql (Bld) 0.2 /100{WBC} 0-0.5 [facility] Platelet mean volume [Entiti c volume] in Blood by Automated countOrdered By: Diane Paez on 04-25-2023 Platelet mean volume (Bld) [Entitic vol] 8.7 fL Normal 6.3-10.7 [facility] Comment on above: Performed By: #### L IPASE, BMP, HEPATIC, HCGQUAL, CBC #### [facility] [address] [place] [address] [place] Platelets [#/volume] in Bloo d by Automated countOrdered By: Diane Paez on 04-25-2023 Platelets (Bld) [#/Vol] 146 10*3/uL Low 150-450 [facility] Comment on above: Performed By: #### L IPASE, BMP, HEPATIC, HCGQUAL, CBC #### [facility] [address] [place] [address] [place] Potassium [Moles/volume] in Serum or PlasmaOrdered By: Diane Paez on 04-25-2023 Potassium [Moles/Vol] 4.0 mmol/L Normal 3.5-5.1 [facility] Comment on above: Performed By: #### L IPASE, BMP, HEPATIC, HCGQUAL, CBC #### [address] Protein Auto test strip (U) [Mass/Vol]Ordered By: Diane Paez on 04-25-2023 Protein (U) [Mass/Vol] Trace mg/dL Negative [facility] Protein [Mass/volume] in Ser um or PlasmaOrdered By: Diane Paez on 04-25-2023 Protein [Mass/Vol] 8.2 g/dL Normal 6.4-8.9 [facility] Comment on above: Performed By: #### L IPASE, BMP, HEPATIC, HCGQUAL, CBC #### [address] Serum globulin measurement b y calculation (mass/volume)Ordered By: Diane Paez on 04-25-2023 Globulin (S) [Mass/Vol] 3.7 g/dL [facility] Comment on above: Performed By: #### L IPASE, BMP, HEPATIC, HCGQUAL, CBC #### [address] Serum or plasma albumin/glob ulin mass ratioOrdered By: Diane Paez on 04-25-2023 Albumin/Globulin [Mass ratio] 1.2 {ratio} [facility] Comment on above: Performed By: #### L IPASE, BMP, HEPATIC, HCGQUAL, CBC #### [address] Serum or plasma anion gap de terminationOrdered By: Diane Paez on 04-25-2023 Anion gap [Moles/Vol] 16.0 mmol/L High 6.0-15.0 [facility] Comment on above: Performed By: #### L IPASE, BMP, HEPATIC, HCGQUAL, CBC #### [address] Serum or plasma non-glucuron idated bilirubin measurement (mass/volume)Ordered By: Diane Paez on 04-25-2023 Bilirubin.indirect [Mass/Vol] 0.4 mg/dL [facility] Sodium [Moles/volume] in Ser um or PlasmaOrdered By: Diane Paez on 04-25-2023 Sodium [Moles/Vol] 139 mmol/L Normal 136-145 [facility] Comment on above: Performed By: #### L IPASE, BMP, HEPATIC, HCGQUAL, CBC #### [facility] [address] Specific gravity Auto test s trip (U) [Rel density]Ordered By: Diane Paez on 04-25-2023 Specific gravity (U) [Rel density] 1.006 1.001-1.030 [facility] Squamous epithelial cells de tection in urine sediment by light microscopyOrdered By: Diane Paez on 04-25-2023 Epithelial cells.squamous LM Ql (Urine sed) 0-1 [HPF] 0-2 [facility] Urea nitrogen [Mass/volume] in Serum or PlasmaOrdered By: Diane Paez on 04-25-2023 Urea nitrogen [Mass/Vol] 5 mg/dL Low 7-25 [facility] Comment on above: Performed By: #### L IPASE, BMP, HEPATIC, HCGQUAL, CBC #### [facility] [address] Urine bacteria detection by automated methodOrdered By: Diane Paez on 04-25-2023 Bacteria Auto Ql (U) None seen None Seen [facility] Urine clarity by refractomet ry automatedOrdered By: Diane Paez on 04-25-2023 Clarity Refractometry automated (U) Clear Clear [facility] Urine glucose measurement by automated test strip (mass/volume)Ordered By: Diane Paez on 04-25-2023 Glucose Auto test strip (U) [Mass/Vol] Normal mg/dL Normal [facility] Urine hemoglobin detection b y automated test stripOrdered By: Diane Paez on 04-25-2023 Hemoglobin Auto test strip Ql (U) Negative Negative [facility] Urine leukocyte esterase det ection by automated test stripOrdered By: Diane Paez on 04-25-2023 Leukocyte esterase Auto test strip Ql (U) Negative Negative [facility] Urine pH measurement by auto mated test stripOrdered By: Diane Paez on 04-25-2023 pH (U) 6.5 [pH] Normal 5.0-9.0 [facility] Comment on above: Order Comment: Name Collection Type:: Clean-Voided Midstream Performed By: #### E ODALIS, MG, CMP, CBC #### [facility] [address] Urobilinogen Auto test strip (U) [Mass/Vol]Ordered By: Diane Paez on 04-25-2023 Urobilinogen (U) [Mass/Vol] Normal mg/dL Normal [facility] BMPon 04-20-2023 Anion gap [Moles/Vol] 14 mmol/L Normal 6-16 [facility] Comment on above: Performed By: #### 2 [id number], [id number], [id number], [id number], [id number], [id number] ####[facility] [address] [place] [address] Calcium [Mass/Vol] 8.7 mg/dL Low 8.9-11.1 [facility] Comment on above: Performed By: #### 2 [id number], [id number], [id number], 5666148, 8666716, 5649342 ####[facility] [address] [place] [address] Chloride [Moles/Vol] 107 mmol/L Normal 101-111 [facility] Comment on above: Performed By: #### 2 301078, [id number], [id number], [id number], 5000226, 1173285 ####[facility] [address] [place] [address] CO2 [Moles/Vol] 26 mmol/L Normal 21-31 [facility] Comment on above: Performed By: #### 2 211567, 9140945, 10277923, 3080456, 7534332, [id number] ####[facility] [address] [place] [address] Creatinine [Mass/Vol] 0.5 mg/dL Normal 0.5-1.3 [facility] Comment on above: Performed By: #### 2 438414, 7902436, [id number], 2985841, 1045069, 7498156 ####[facility] [address] [place] [address] Glucose [Mass/Vol] 83 mg/dL Normal 55-199 [facility] Comment on above: Performed By: #### 2 010389, 3220226, 97064523, 9941980, 5017778, 0200113 ####[facility] [address] [place] [address] Potassium [Moles/Vol] 3.8 mmol/L Normal 3.5-5.3 [facility] Comment on above: Performed By: #### 2 601131, 5321886, 21236105, 7893266, 2332660, 2769121 ####[facility] [address] [place] [address] Sodium [Moles/Vol] 143 mmol/L Normal 135-145 [facility] Comment on above: Performed By: #### 2 697853, 7033894, 29927983, 9320285, 2588397, 4450221 ####[facility] [address] [place] [address] Urea nitrogen [Mass/Vol] 8 mg/dL Normal 5-21 [facility] Comment on above: Performed By: #### 2 579030, 2796215, 30755116, 8804074, 3245386, 8013375 ####[facility] [address] [place] [address] Urea nitrogen/Creatinine [Mass ratio] 16 No Units Normal 10-20 [facility] Comment on above: Performed By: #### 2 [id number], [id number], 20939852, 4551505, 1883014, 0343725 ####[facility] [address] [place] [address] CBC w/ Auto Diffon 4 Basophils/100 WBC (Bld) 1.1 % Normal 0.0-2.0 [facility] Comment on above: Performed By: #### 2 167708, 3918689, 62118936, 4052397, 8471204, 9282285 ####[address] [place] [address] Basophils/Leukocytes Auto (Bld) [Pure # fraction] 0.1 E9/L Normal 0.0-0.2 [facility] Comment on above: Performed By: #### 2 754672, 3064866, 83812043, 5047798, 9308102, 4725069 ####[address] [address] Eosinophils (Bld) [#/Vol] 0.1 E9/L Normal 0.0-0.5 [facility] Comment on above: Performed By: #### 2 580199, 8585097, 57129477, 5161945, 2175487, 9110246 ####[address] [address] Eosinophils/100 WBC (Bld) 1.0 % Normal 0.0-8.0 [facility] Comment on above: Performed By: #### 2 512468, 1814029, 29773363, 4173943, 2712246, 1393860 ####[address] [address] Erythrocyte distribution width (RBC) [Ratio] 13.1 % Normal 10.9-14.2 [facility] Comment on above: Performed By: #### 2 668963, 4963407, 66392076, 6018760, 5687471, 5046775 ####[address] [place] [address] Hematocrit (Bld) [Volume fraction] 41.5 % Normal 34.0-46.0 [facility] Comment on above: Performed By: #### 2 409178, 2204232, 25235326, 4311291, 4882197, 8895522 ####[facility] [address] [place] [address] Hemoglobin (Bld) [Mass/Vol] 14.3 g/dL Normal 12.0-16.0 [facility] Comment on above: Performed By: #### 2 624660, 6953123, 46525365, 7161699, 6655530, 6988149 ####[address] [address] Lymphocytes (Bld) [#/Vol] 2.4 E9/L Normal 1.0-4.0 [facility] Comment on above: Performed By: #### 2 503885, 6121443, 26055237, 8866493, 0212579, 1353738 ####[address] [address] Lymphocytes/100 WBC (Bld) 38.1 % Normal 14.0-50.0 [facility] Comment on above: Performed By: #### 2 761888, 7035268, 85252039, 9355609, 5761991, 3767885 ####[address] [address] MCH (RBC) [Entitic mass] 33.5 pg Normal 27.0-34.0 [facility] Comment on above: Performed By: #### 2 623203, 8718431, 36903240, 0292713, 9955163, 0444425 ####[address] [address] MCHC (RBC) [Mass/Vol] 34.5 g/dL Normal 31.4-36.0 [facility] Comment on above: Performed By: #### 2 954723, 6153077, 55294940, 2695362, 3481195, 6601515 ####[address] [address] MCV (RBC) [Entitic vol] 97.0 fL Normal 80.0-100.0 [facility] Comment on above: Performed By: #### 2 141580, 6492819, 52689343, 7284091, 1000640, 1085208 ####[address] [address] Monocytes (Bld) [#/Vol] 0.3 E9/L Normal 0.2-1.0 [facility] Comment on above: Performed By: #### 2 804750, 7711479, 78137234, 4295808, 6479413, 5911943 ####[address] [address] Neutrophils (Bld) [#/Vol] 3.4 E9/L Normal 2.0-7.5 [facility] Comment on above: Performed By: #### 2 457607, 0464797, 61710818, 5383768, 5508548, 0909637 ####[address] [address] Neutrophils/100 WBC (Bld) 54.6 % Normal 36.0-75.0 [facility] Comment on above: Performed By: #### 2 552421, 7516278, 61210099, 1438064, 8435470, 3870388 ####[address] [address] Platelet 192.0 E9/L Normal 150.0-500.0 [facility] Comment on above: Performed By: #### 2 447534, 8859758, 70148859, 0102591, 6606365, 6446397 ####[address] [address] Platelet mean volume (Bld) [Entitic vol] 7.8 fL Normal 6.4-10.8 [facility] Comment on above: Performed By: #### 2 401403, 8350133, 98967846, 8349550, 0513761, 3081464 ####[address] [address] RBC (Bld) [#/Vol] 4.3 E12/L Normal 4.3-5.9 [facility] Comment on above: Performed By: #### 2 855734, 1586710, 97593976, 7731839, 2450525, 4031069 ####[facility] [address] [place] [address] WBC corrected for nucl RBC Auto (Bld) [#/Vol] 6.2 E9/L Normal 4.0-11.0 [facility] Comment on above: Performed By: #### 2 995894, 6909235, 12000092, 4241642, 9340712, 2714400 ####[facility] [address] [place] [address] Consent for Treatmenton Consent for Treatment [id number] FF Normal [facility] Discharge Instructionson Discharge Instructions [id number] FF Normal [facility] ED Clinical Summaryon 2023 ED Clinical Summary Normal [facility] ED Note-Nursingon 04-20-2023 ED Note-Nursing Normal [facility] ED Note-Physicianon 04-20-19 ED Note-Physician Normal [facility] Comment on above: Result Comment: Elec tronically Signed By: Elliott Hicks PA-C\.br\Date and Time Signed: 04/19/23 23:53 EST\.br\Electronically Co-Signed By: Kerry Linton DO.br\Date and Time Co-Signed: 04/20/23 05:01 EST ED Patient Education Noteon 04-20-2023 ED Patient Education Note Normal [facility] ED Patient Summaryon 024 ED Patient Summary Normal [facility] Ethanolon 04-20-2023 Ethanol Lvl 437 mg/dL Abnormal <=11 [facility] Comment on above: Result Comment: Crit ical Result Verified by Repeat AnalysisCritical Result [id number] Called to and read back by: DR. LINTON at: 04/19/2023 23:22:41 by:[id number] Performed By: #### 2 346213 ####[facility] [address] [place] [address] Hep Func Panelon 04-20-2023 Albumin [Mass/Vol] 4.3 g/dL Normal 3.3-5.0 [facility] Comment on above: Performed By: #### 2 551873, 5814037, 08920970, 4153426, 7127981, 3438947 ####[facility] [address] [place] [address] Albumin/Globulin (S) [Mass conc ratio] 1.3 Normal 1.1-2.2 [facility] Comment on above: Performed By: #### 2 392368, 5634680, 98651321, 8060438, 9096715, 6213917 ####[address] [address] ALP [Catalytic activity/Vol] 96 Int._Unit/L Normal 21-98 [facility] Comment on above: Performed By: #### 2 007029, 6580371, 59421702, 5274448, 5899824, 1999436 ####[address] [address] ALT No additional P-5'-P [Catalytic activity/Vol] 273 Int._Unit/L High 6-46 [facility] Comment on above: Performed By: #### 2 022464, 3426527, 89378669, 2831614, 8799839, 7027442 ####[facility] [address] [place] [address] AST [Catalytic activity/Vol] 356 Int._Unit/L High 5-43 [facility] Comment on above: Performed By: #### 2 057215, 4500423, 80519688, 6556048, 3481358, 8976072 ####[facility] [address] [place] [address] Bilirubin [Mass/Vol] 0.3 mg/dL Normal 0.0-1.1 [facility] Comment on above: Performed By: #### 2 231431, 5028104, 92556793, 9479675, 2888739, 7219990 ####[facility] [address] [place] [address] Bilirubin.direct [Mass/Vol] 0.1 mg/dL Normal 0.0-0.4 [facility] Comment on above: Performed By: #### 2 780387, 7051682, 47110174, 9972700, 1580559, 0110713 ####[facility] [address] [place] [address] Bilirubin.indirect [Mass or moles/Vol] 0.2 mg/dL Normal 0.1-0.9 [facility] Comment on above: Performed By: #### 2 353848, 6217869, 60229408, 0058581, 4194423, 8735685 ####[address] [address] Globulin (S) [Mass/Vol] 3.3 g/dL Normal 1.4-4.0 [facility] Comment on above: Performed By: #### 2 483941, 7344801, 27029114, 7914504, 4838409, 8838741 ####[facility] [address] [place] [address] Protein [Mass/Vol] 7.6 g/dL Normal 6.0-7.8 [facility] Comment on above: Performed By: #### 2 529035, 8787299, 99518839, 9896806, 3141665, 7696518 ####[facility] [address] [place] [address] Lipase Levelon 04-20-2023 Lipase [Catalytic activity/Vol] 63 U/L High 13-58 [facility] Comment on above: Performed By: #### 2 655428, 1360402, 97077299, 4069029, 3396773, 4370089 ####[facility] [address] [place] [address] Magnesiumon 04-20-2023 Magnesium [Mass/Vol] 2.0 mg/dL Normal 1.3-2.4 Fish er [facility] Comment on above: Performed By: #### 2 695871, 1013878, 54730069, 6830015, 9619439, 0761051 ####[facility] [address] [place] [address] Progress Note-Nurseon 2023 Progress Note-Nurse Angelafrchrissy PO hold for n ow. Pt. eyes closed. No N/V . Normal [facility] U BetaHcg Qualon 04-20-2023 HCG.beta subunit (U) [Moles/Vol] Negative Normal [facility] Comment on above: Performed By: #### 2 3188258, 66876931 ####[address] [place] [address] U Drug Screenon 04-20-2023 Amphetamines Screen method >1000 ng/mL Ql (U) Negative Normal NEGATIVE [facility] Comment on above: Performed By: #### 2 728027 ####[facility] [address] [place] [address] Barbiturates Screen Ql (U) Negative Normal NEGATIVE [facility] Comment on above: Performed By: #### 2 321111 ####[facility] [address] [place] [address] Benzodiazepines Ql (U) Negative Normal NEGATIVE [facility] Comment on above: Performed By: #### 2 205705 ####[facility] [address] [place] [address] Cannabinoids Screen Ql (U) Negative Normal NEGATIVE [facility] Comment on above: Performed By: #### 2 164778 ####[facility] [address] [place] [address] Cocaine Ql (U) Negative Normal NEGATIVE [facility] Comment on above: Performed By: #### 2 825040 ####[facility] [address] [place] [address] Opiates Screen Ql (U) Negative Normal NEGATIVE [facility] Comment on above: Performed By: #### 2 400166 ####[facility] [address] [place] [address] Phencyclidine Screen method >25 ng/mL Ql (U) Negative Normal NEGATIVE [facility] Comment on above: Performed By: #### 2 051014 ####[facility] [address] [place] [address] UA With Cult Reflexon 2023 Bilirubin Ql (U) Negative Normal Negative [facility] Comment on above: Performed By: #### 2 1093098, 10088673 ####[facility] [address] [place] [address] Clarity (U) CLEAR Normal Clear [facility] Comment on above: Performed By: #### 2 7539095, 20714682 ####[facility] [address] [place] [address] Color (U) STRAW Invalid Interpretation Code [facility] Comment on above: Performed By: #### 2 0730915, 93445995 ####[facility] [address] [place] [address] Epithelial cells.squamous LM.HPF (Urine sed) [#/Area] 0-2 Normal 0-2 [facility] Comment on above: Performed By: #### 2 5246281, 47879497 ####[facility] [address] [place] [address] Glucose Test strip (U) [Mass/Vol] Negative Normal Negative [facility] Comment on above: Performed By: #### 2 5744570, 53846587 ####[facility] [address] [place] [address] Hemoglobin Ql (U) Negative Normal Negative [facility] Comment on above: Performed By: #### 2 7898288, 40964712 ####[facility] [address] [place] [address] Ketones (U) [Mass/Vol] Negative Normal Negative [facility] Comment on above: Performed By: #### 2 6606138, 92530192 ####[facility] [address] [place] [address] Sloan.plasma/Lithiu m.RBC (Bld) [Mass ratio] 0-3 Normal 0-3 [facility] Comment on above: Performed By: #### 2 2955684, 88168454 ####[facility] [address] [place] [address] Nitrite Ql (U) Negative Normal Negative [facility] Comment on above: Performed By: #### 2 1053915, 35154148 ####[address] [address] pH (U) 7.0 [pH] Invalid Interpretation Code 5.0-9.0 [facility] Comment on above: Performed By: #### 2 3440265, 47659502 ####[address] [address] Protein (U) [Mass/Vol] Negative Normal Negative [facility] Comment on above: Performed By: #### 2 6574229, 86857209 ####[address] [address] Specific gravity (U) [Rel density] <=1.005 Invalid Interpretation Code 1.005-1.030 [facility] Comment on above: Performed By: #### 2 1822937, 57141116 ####[facility] [address] [place] [address] Type of Urine collection method Clean Catch Normal [facility] Comment on above: Performed By: #### 2 5758326, 00701562 ####[facility] [address] [place] [address] Urobilinogen Qn (U) 0.2 {Surinder'U}/dL Normal 0.0-1.0 [facility] Comment on above: Performed By: #### 2 7375359, 56371445 ####[address] [address] WBC Auto Ql (U) Negative Normal Negative [facility] Comment on above: Performed By: #### 2 6388476, 84858433 ####[facility] [address] [place] [address] WBC LM.HPF (Urine sed) [#/Area] 0-5 Normal 0-5 [facility] Comment on above: Performed By: #### 2 4741447, 24193068 ####[facility] [address] [place] [address] eGFRon 04-20-2023 eGFR 128 mL/min/1.73 m2 Normal >=59 [facility] Comment on above: Order Comment: Order added by Discern Expert. Performed By: #### 2 104747, 5128250, 61568402, 0069965, 5390078, 9208735 ####[facility] [address] [place] [address] CHEMISTRYOrdered By: SYSTEM SYSTEM on 04-19-2023 Albumin [...] back by: DR. LINTON at: 04/19/2023 23:22:41 by:[id number] Globulin (S) [Mass/Vol] 3.3 g/dL Normal 1.4 [...] Pre-Arrival Noteon Pre-Arrival Note Normal [facility] SEROLOGYOrdered By: Domitila gaffney on 04-19-2023 HCG.beta subunit (U) [Moles/Vol] Negative Normal [facility] Man Sero URINALYSISOrdered By: Domitila [...] PM) Normal Negative [facility] UA Auto SS Sloan.plasma/Lithiu m.RBC (Bld) [Mass ratio] 0-3 /HPF Normal 0-3/HPF [facility] UA Auto SS Nitrite Ql (U) Negative (04/19/23 10:25 PM) Normal Negative [facility] UA Auto SS pH (U) 7.0 *NA* (04/19/23 10:25 PM) Invalid Interpretation Code 5.0 - 9.0 [facility] UA Auto SS Protein (U) [Mass/Vol] Negative (04/19/23 10:25 PM) Normal Negative [facility] UA Auto SS Specific gravity (U) [Rel density] <=1.005 *NA* (04/19/23 10:25 PM) Invalid Interpretation Code 1.005 - 1.030 [facility] UA Auto SS UA Spec Desc Clean Catch (04/19/23 10:25 PM) Normal [facility] UA Auto SS Urobilinogen Qn (U) 0.5200482 {Surinder'U}/dL Normal 0.0 - 1.0 EU/dL [facility] UA Auto SS WBC Auto Ql (U) Negative (04/19/23 10:25 PM) Normal Negative [facility] UA Auto SS WBC LM.HPF (Urine sed) [#/Area] 0-5 /HPF Normal 0-5/HPF [facility] UA Auto SS ED Note-Physicianon 04-09-19 ED Note-Physician [id number] F Normal [facility] Alanine aminotransferase [En zymatic activity/volume] in Serum or PlasmaOrdered By: Eric Dooley on 04-08-2023 ALT [Catalytic activity/Vol] 169 U/L High 7-52 [facility] Comment on above: Performed By: #### C MP, LIPASE, CBC #### [facility] [address] [place] [address] [place] Albumin [Mass/volume] in Ser um or Plasma by Bromocresol green (BCG) dye binding methoOrdered By: Eric Dooley on 04-08-2023 Albumin BCG dye [Mass/Vol] 4.1 g/dL 3.5-5.7 [facility] Alkaline phosphatase [Enzyma tic activity/volume] in Serum or PlasmaOrdered By: Eric Dooley on 04-08-2023 ALP [Catalytic activity/Vol] 66 U/L Normal 34-104 [facility] Comment on above: Performed By: #### C MP, LIPASE, CBC #### [facility] [address] [place] [address] [place] Amylase [Enzymatic activity/ volume] in Serum or PlasmaOrdered By: Eric Dooley on 04-08-2023 Amylase [Catalytic activity/Vol] 70 U/L Normal 29-103 [facility] Comment on above: Performed By: #### C MP, LIPASE, CBC #### [address] Aspartate aminotransferase [ Enzymatic activity/volume] in Serum or PlasmaOrdered By: Eric Dooley on 04-08-2023 AST [Catalytic activity/Vol] 121 U/L High 13-39 [facility] Comment on above: Performed By: #### C MP, LIPASE, CBC #### [address] Automated basophil %Ordered By: Eric Dooley on 04-08-2023 Basophils/100 WBC (Bld) 0.8 % Normal . [facility] Comment on above: Performed By: #### C MP, LIPASE, CBC #### [address] Automated basophil countOrde red By: Eric Dooley on 04-08-2023 Basophils (Bld) [#/Vol] 0.0 10*3/uL Normal 0.0-0.2 [facility] Comment on above: Result Comment: PERF ORMED BY: [place] [address] PATHOLOGIST HEADING REPAIRER LEE CARDOSO M.D. Performed By: #### C MP, LIPASE, CBC #### [address] Automated blood monocyte cou ntOrdered By: Eric Dooley on 04-08-2023 Monocytes (Bld) [#/Vol] 0.3 10*3/uL Normal 0.0-0.8 [facility] Comment on above: Performed By: #### C MP, LIPASE, CBC #### [address] Automated eosinophil %Ordere d By: Eric Dooley on 04-08-2023 Eosinophils/100 WBC (Bld) 1.0 % Normal . [facility] Comment on above: Performed By: #### C MP, LIPASE, CBC #### [address] Automated eosinophil countOr dered By: Eric Dooley on 04-08-2023 Eosinophils (Bld) [#/Vol] 0.1 10*3/uL Normal 0.0-0.45 [facility] Comment on above: Performed By: #### C MP, LIPASE, CBC #### [address] Automated erythrocytes count in urine sediment (number/area)Ordered By: Eric Dooley on 04-08-2023 RBC Auto (Urine sed) [#/Area] 0-1 [HPF] 0-4 [facility] Automated leukocytes count i n urine sediment (number/area)Ordered By: Eric Dooley on 04-08-2023 WBC Auto (Urine sed) [#/Area] 5-9 [HPF] 0-4 [facility] Automated monocyte %Ordered By: Eric Dooley on 04-08-2023 Monocytes/100 WBC (Bld) 6.3 % Normal . [facility] Comment on above: Performed By: #### C MP, LIPASE, CBC #### [address] Automated neutrophil %Ordere d By: Eric Dooley on 04-08-2023 Neutrophils/100 WBC (Bld) 59.5 % Normal . [facility] Comment on above: Performed By: #### C MP, LIPASE, CBC #### [address] Automated urine color determ inationOrdered By: Eric Dooley on 04-08-2023 Color (U) Yellow Normal Yellow [facility] Comment on above: Order Comment: Name Collection Type:: Clean-Voided Midstream Performed By: #### C MP, LIPASE, CBC #### [address] Basic Metabolic Panelon 03-15 Creatinine Clr Calc Pharmacy 117.32 Normal [facility] Comment on above: Performed By: #### C MP, LIPASE, CBC #### [address] GFR/1.73 sq M.predicted MDRD (S/P/Bld) [Vol rate/Area] mL/min/{1.73_m2} Normal [facility] Comment on above: Performed By: #### C MP, LIPASE, CBC #### [address] Bilirubin Test strip Ql (U)O rdered By: Eric Dooley on 04-08-2023 Bilirubin Ql (U) Negative Negative [facility] Bilirubin.direct [Mass/volum e] in Serum or PlasmaOrdered By: Eric Dooley on 04-08-2023 Bilirubin.direct [Mass/Vol] 0.10 mg/dL 0.03-0.18 [facility] Bilirubin.total [Mass/volume ] in Serum or PlasmaOrdered By: Eric Dooley on 04-08-2023 Bilirubin [Mass/Vol] 0.4 mg/dL Normal 0.3-1.0 [facility] Comment on above: Performed By: #### C MP, LIPASE, CBC #### [address] Calcium [Mass/volume] in Ser um or PlasmaOrdered By: Eric Dooley on 04-08-2023 Calcium [Mass/Vol] 8.9 mg/dL Normal 8.6-10.3 [facility] Comment on above: Performed By: #### C MP, LIPASE, CBC #### [address] Carbon dioxide, total [Moles /volume] in Serum or PlasmaOrdered By: Eric Dooley on 04-08-2023 CO2 [Moles/Vol] 20.2 mmol/L Low 21.0-31.0 [facility] Comment on above: Performed By: #### C MP, LIPASE, CBC #### [place] [address] [place] Chloride [Moles/volume] in S marbella or PlasmaOrdered By: Eric Dooley on 04-08-2023 Chloride [Moles/Vol] 108 mmol/L High 98-107 [facility] Comment on above: Performed By: #### C MP, LIPASE, CBC #### [address] Complete Blood Count Auto Di ffon 04-08-2023 Mean Corpuscular HGB Conc 34.0 g/dL Normal 32.0-35.0 [facility] Comment on above: Performed By: #### C MP, LIPASE, CBC #### [facility] [address] [place] [address] [place] Monocytes/100 WBC (Bld) 19.15 % Normal 0.00-20.00 [facility] Comment on above: Performed By: #### C MP, LIPASE, CBC #### [facility] [address] [place] [address] [place] NRBC% 0.3 /100{WBC} Normal 0-0.5 [facility] Comment on above: Performed By: #### C MP, LIPASE, CBC #### [place] [address] [place] Creatinine [Mass/volume] in Serum or PlasmaOrdered By: Eric Dooley on 04-08-2023 Creatinine [Mass/Vol] 0.65 mg/dL Normal 0.60-1.20 [facility] Comment on above: Performed By: #### C MP, LIPASE, CBC #### [place] [address] [place] Dipstick and Microscopicon 0 04-08-2023 Appearance (U) Clear Normal Clear [facility] Comment on above: Order Comment: Name Collection Type:: Clean-Voided Midstream Performed By: #### C MP, LIPASE, CBC #### [place] [address] [place] Bacteria,Urine None Seen Normal None Seen [facility] Comment on above: Order Comment: Name Collection Type:: Clean-Voided Midstream Performed By: #### C MP, LIPASE, CBC #### [place] [address] [place] Bilirubin,Urine Negative Normal Negative [facility] Comment on above: Order Comment: Name Collection Type:: Clean-Voided Midstream Performed By: #### C MP, LIPASE, CBC #### [place] [address] [place] Glucose Ql (U) Normal Normal Normal [facility] Comment on above: Order Comment: Name Collection Type:: Clean-Voided Midstream Performed By: #### C MP, LIPASE, CBC #### [facility] [address] [place] [address] [place] Hyaline Casts,Urine 0-8 Normal 0-8 [facility] Comment on above: Order Comment: Name Collection Type:: Clean-Voided Midstream Performed By: #### C MP, LIPASE, CBC #### [place] [address] [place] Ketones Ql (U) Negative Normal Negative [facility] Comment on above: Order Comment: Name Collection Type:: Clean-Voided Midstream Performed By: #### C MP, LIPASE, CBC #### [address] Leukocyte esterase Test strip Ql (U) 1+ High Negative [facility] Comment on above: Order Comment: Name Collection Type:: Clean-Voided Midstream Performed By: #### C MP, LIPASE, CBC #### [place] [address] [place] Nitrite,Urine Negative Normal Negative [facility] Comment on above: Order Comment: Name Collection Type:: Clean-Voided Midstream Performed By: #### C MP, LIPASE, CBC #### [place] [address] [place] Occult Blood,Urine Trace High Negative [facility] Comment on above: Order Comment: Name Collection Type:: Clean-Voided Midstream Performed By: #### C MP, LIPASE, CBC #### [place] [address] [place] Protein,Urine Negative Normal Negative [facility] Comment on above: Order Comment: Name Collection Type:: Clean-Voided Midstream Performed By: #### C MP, LIPASE, CBC #### [place] [address] [place] RBC LM.HPF (Urine sed) [#/Area] 0 /[HPF] Normal 0-4 [facility] [facility] Comment on above: Order Comment: Name Collection Type:: Clean-Voided Midstream Performed By: #### C MP, LIPASE, CBC #### [address] Specificy [place],Urine 1.017 Normal 1.001-1.030 [facility] Comment on above: Order Comment: Name Collection Type:: Clean-Voided Midstream Performed By: #### C MP, LIPASE, CBC #### [address] Squamous Epithelial Cell,Urine 0-1 Normal 0-2 [facility] Comment on above: Order Comment: Name Collection Type:: Clean-Voided Midstream Performed By: #### C MP, LIPASE, CBC #### [address] Urobilinogen,Urine Normal Normal Normal [facility] Comment on above: Order Comment: Name Collection Type:: Clean-Voided Midstream Performed By: #### C MP, LIPASE, CBC #### [address] WBC,Urine 5-9 High 0-4 [facility] Comment on above: Order Comment: Name Collection Type:: Clean-Voided Midstream Performed By: #### C MP, LIPASE, CBC #### [address] ED Note-Physicianon 04-08-19 ED Note-Physician [id number] 2011 [id number] F Normal [facility] Erythrocyte distribution wid th [Ratio] by Automated countOrdered By: Eric Dooley on 04-08-2023 Erythrocyte distribution width (RBC) [Ratio] 13.7 % Normal 11.9-15.3 [facility] Comment on above: Performed By: #### C MP, LIPASE, CBC #### [address] Erythrocytes [#/volume] in B lood by Automated countOrdered By: Eric Dooley on 04-08-2023 RBC (Bld) [#/Vol] 4.61 10*6/uL Normal 3.60-5.[address] [facility] Comment on above: Performed By: #### C MP, LIPASE, CBC #### [facility] [address] Ethanol [Mass/volume] in Ser um or PlasmaOrdered By: Eric Dooley on 04-08-2023 Ethanol [Mass/Vol] mg/dL Normal [facility] Comment on above: Performed By: #### C MP, LIPASE, CBC #### [facility] [address] Ethanol [Mass/Vol] TNP [facility] Comment on above: Test not performed Ethyl Alcohol Profileon 03-15 Percent Ethanol Not performed Normal [facility] Comment on above: Result Comment: PERF ORMED BY: [place] [address] PATHOLOGIST HEADING REPAIRER LEE CARDOSO M.D. Performed By: #### C MP, LIPASE, CBC #### [facility] [address] Glucose [Mass/volume] in Ser um or PlasmaOrdered By: Eric Dooley on 04-08-2023 Glucose [Mass/Vol] 85 mg/dL Normal 70-100 [facility] Comment on above: ADA recommended refe rence rangeRandom Glucose Reference Range is dependent on time and content of last meal. Glucose of more than 200 mg/dL in a nonstressed, ambulatory subject supports the diagnosis of Diabetes Mellitus. Result Comment: [place] Glucose Reference Range is dependent on time and content of last meal. Glucose of more than 200 mg/dL in a nonstressed, ambulatory subject supports the diagnosis of Diabetes Mellitus. ADA recommended reference range Performed By: #### C MP, LIPASE, CBC #### [facility] [address] [place] [address] [place] HCG ( test) IA.rapi d Ql (U)Ordered By: PROVIDER TEMP on 04-08-2023 HCG ( test) Ql (U) Negative [facility] HCG,Urineon 04-08-2023 Beta HCG ( test) Ql (U) Negative Normal [facility] Comment on above: Order Comment: Name Collection Type:: Clean-Voided Midstream Result Comment: PERF ORMED BY: [place] [address] PATHOLOGIST HEADING REPAIRER LEE CARDOSO M.D. Performed By: #### C MP, LIPASE, CBC #### [address] Hematocrit [Volume Fraction] of Blood by Automated countOrdered By: Eric Dooley on 04-08-2023 Hematocrit (Bld) [Volume fraction] 45.6 % Normal 34.0-46.4 [facility] Comment on above: Performed By: #### C MP, LIPASE, CBC #### [address] Hemoglobin [Mass/volume] in BloodOrdered By: Eric Dooley on 04-08-2023 Hemoglobin (Bld) [Mass/Vol] 15.5 g/dL High 11.8-15.4 [facility] Comment on above: Performed By: #### C MP, LIPASE, CBC #### [address] Hepatic Panelon 04-08-2023 Albumin [Mass/Vol] 4.1 g/dL Normal 3.5-5.7 [facility] Comment on above: Performed By: #### C MP, LIPASE, CBC #### [address] Bilirubin,Indirect 0.3 mg/dL Normal [facility] Comment on above: Performed By: #### C MP, LIPASE, CBC #### [address] Bilirubin.indirect [Mass/Vol] 0.10 mg/dL Normal 0.03-0.18 [facility] Comment on above: Performed By: #### C MP, LIPASE, CBC #### [address] Ketones Auto test strip (U) [Mass/Vol]Ordered By: Eric Dooley on 04-08-2023 Ketones (U) [Mass/Vol] Negative Negative [facility] Laboratory - UrinalysisOrder ed By: Eric Dooley on 04-08-2023 Hyaline casts LM Ql (Urine sed) 0-8 [LPF] 0-8 [facility] Leukocytes [#/volume] correc jose for nucleated erythrocytes in Blood by Automated counOrdered By: Eric Dooley on 04-08-2023 WBC corrected for nucl RBC Auto (Bld) [#/Vol] 5.1 10*3/uL 3.8-11.6 [facility] Leukocytes [#/volume] in Blo od by Automated countOrdered By: Eric Dooley on 04-08-2023 WBC (Bld) [#/Vol] 5.1 10*3/uL Normal 3.8-11.6 [facility] Comment on above: Performed By: #### C MP, LIPASE, CBC #### [facility] [address] [place] [address] Lipase [Enzymatic activity/v olume] in Serum or PlasmaOrdered By: Eric Dooley on 04-08-2023 Lipase [Catalytic activity/Vol] 68.0 U/L Normal 11.0-82.0 [facility] Comment on above: Result Comment: PERF ORMED BY: [place] [address] PATHOLOGIST HEADING REPAIRER LEE CARDOSO M.D. Performed By: #### C MP, LIPASE, CBC #### [facility] [address] [place] [address] [place] Lymphocytes [#/volume] in Bl ood by Automated countOrdered By: Eric Dooley on 04-08-2023 Lymphocytes (Bld) [#/Vol] 1.6 10*3/uL Normal 1.00-4.8 [facility] Comment on above: Performed By: #### C MP, LIPASE, CBC #### [facility] [address] [place] [address] [place] Lymphocytes/100 leukocytes i n Blood by Automated countOrdered By: Eric Dooley on 04-08-2023 Lymphocytes/100 WBC (Bld) 32.4 % Normal . [facility] Comment on above: Performed By: #### C MP, LIPASE, CBC #### [facility] [address] MCH [Entitic mass] by Automa jose countOrdered By: Eric Dooley on 04-08-2023 MCH (RBC) [Entitic mass] 33.6 pg Normal 24.7-34.3 [facility] Comment on above: Performed By: #### C MP, LIPASE, CBC #### [facility] [address] [place] [address] MCHC Auto (RBC) [Mass/Vol]Or dered By: Eric Dooley on 04-08-2023 MCHC (RBC) [Mass/Vol] 34.0 g/dL 32.0-35.0 [facility] MCV [Entitic volume] by Auto mated countOrdered By: Eric Dooley on 04-08-2023 MCV (RBC) [Entitic vol] 98.9 fL Normal 80-100 [facility] Comment on above: Performed By: #### C MP, LIPASE, CBC #### [address] Monocyte distribution width [Entitic volume] in Blood by AutomatedOrdered By: Eric Dooley on 04-08-2023 Monocyte distribution width Auto (Bld) [Entitic vol] 19.15 % 0.00-20.00 [facility] Neutrophils [#/volume] in Bl ood by Automated countOrdered By: Eric Dooley on 04-08-2023 Neutrophils (Bld) [#/Vol] 3.0 10*3/uL Normal 1.8-7.7 [facility] Comment on above: Performed By: #### C MP, LIPASE, CBC #### [address] Nitrite Test strip Ql (U)Ord ered By: Eric Dooley on 04-08-2023 Nitrite Ql (U) Negative Negative [facility] No Panel InformationOrdered By: Eric Dooley on 04-08-2023 Estimated GFR (CKD-EPI) > 60.0 mL/Min [facility] Creatinine Clearance (Chem 117.32 [facility] Nucleated erythrocytes [Pres ence] in Blood by Automated countOrdered By: Eric Dooley on 04-08-2023 Nucleated RBC Auto Ql (Bld) 0.3 /100{WBC} 0-0.5 [facility] Platelet mean volume [Entiti c volume] in Blood by Automated countOrdered By: Eric Dooley on 04-08-2023 Platelet mean volume (Bld) [Entitic vol] 8.6 fL Normal 6.3-10.7 [facility] Comment on above: Performed By: #### C MP, LIPASE, CBC #### [address] Platelets [#/volume] in Bloo d by Automated countOrdered By: Eric Dooley on 04-08-2023 Platelets (Bld) [#/Vol] 137 10*3/uL Low 150-450 [facility] Comment on above: Performed By: #### C MP, LIPASE, CBC #### [address] Potassium [Moles/volume] in Serum or PlasmaOrdered By: Eric Dooley on 04-08-2023 Potassium [Moles/Vol] 4.3 mmol/L Normal 3.5-5.1 [facility] Comment on above: Hemolysis is present at a level that could interfere with the result. Result Comment: Hemo lysis is present at a level that could interfere with the result. Performed By: #### C MP, LIPASE, CBC #### [address] Protein Auto test strip (U) [Mass/Vol]Ordered By: Eric Dooley on 04-08-2023 Protein (U) [Mass/Vol] Negative Negative [facility] Protein [Mass/volume] in Ser um or PlasmaOrdered By: Eric Dooley on 04-08-2023 Protein [Mass/Vol] 7.6 g/dL Normal 6.4-8.9 [facility] Comment on above: Performed By: #### C MP, LIPASE, CBC #### [address] Serum globulin measurement b y calculation (mass/volume)Ordered By: Eric Dooley on 04-08-2023 Globulin (S) [Mass/Vol] 3.5 g/dL [facility] Comment on above: Performed By: #### C MP, LIPASE, CBC #### [address] Serum or plasma albumin/glob ulin mass ratioOrdered By: Eric Dooley on 04-08-2023 Albumin/Globulin [Mass ratio] 1.2 {ratio} [facility] Comment on above: Performed By: #### C MP, LIPASE, CBC #### [address] Serum or plasma anion gap de terminationOrdered By: Eric Dooley on 04-08-2023 Anion gap [Moles/Vol] 12.1 mmol/L Normal 6.0-15.0 [facility] Comment on above: Performed By: #### C MP, LIPASE, CBC #### [address] Serum or plasma non-glucuron idated bilirubin measurement (mass/volume)Ordered By: Eric Dooley on 04-08-2023 Bilirubin.indirect [Mass/Vol] 0.3 mg/dL [facility] Sodium [Moles/volume] in Ser um or PlasmaOrdered By: Eric Dooley on 04-08-2023 Sodium [Moles/Vol] 136 mmol/L Normal 136-145 [facility] Comment on above: Performed By: #### C MP, LIPASE, CBC #### [address] Specific gravity Auto test s trip (U) [Rel density]Ordered By: Eric Dooley on 04-08-2023 Specific gravity (U) [Rel density] 1.017 1.001-1.030 [facility] Squamous epithelial cells de tection in urine sediment by light microscopyOrdered By: Eric Dooley on 04-08-2023 Epithelial cells.squamous LM Ql (Urine sed) 0-1 [HPF] 0-2 [facility] Urea nitrogen [Mass/volume] in Serum or PlasmaOrdered By: Eric Dooley on 04-08-2023 Urea nitrogen [Mass/Vol] 16 mg/dL Normal 7-25 [facility] Comment on above: Performed By: #### C MP, LIPASE, CBC #### [facility] [address] Urine Cultureon 04-08-2023 Bacteria identified Cx Nom (U) 10,000 colonies/ml mixed bacterial skin contaminants 2 Days PERFORMED BY: [place] [address] PATHOLOGIST HEADING REPAIRER LEE CARDOSO M.D. Normal [facility] Comment on above: Performed By: #### C MP, LIPASE, CBC #### [facility] [address] [place] [address] Urine bacteria detection by automated methodOrdered By: Eric Dooley on 04-08-2023 Bacteria Auto Ql (U) None seen None Seen [facility] Urine clarity by refractomet ry automatedOrdered By: Eric Dooley on 04-08-2023 Clarity Refractometry automated (U) Clear Clear [facility] Urine culture routineOrdered By: Eric Dooley on 04-08-2023 Bacteria identified Cx Nom (U) 2 Days [facility] Urine glucose measurement by automated test strip (mass/volume)Ordered By: Eric Dooley on 04-08-2023 Glucose Auto test strip (U) [Mass/Vol] Normal mg/dL Normal [facility] Urine hemoglobin detection b y automated test stripOrdered By: Eric Dooley on 04-08-2023 Hemoglobin Auto test strip Ql (U) Trace Negative [facility] Urine leukocyte esterase det ection by automated test stripOrdered By: Eric Dooley on 04-08-2023 Leukocyte esterase Auto test strip Ql (U) 1+ Negative [facility] Urine pH measurement by auto mated test stripOrdered By: Eric Dooley on 04-08-2023 pH (U) 7.5 [pH] Normal 5.0-9.0 [facility] Comment on above: Order Comment: Name Collection Type:: Clean-Voided Midstream Performed By: #### C MP, LIPASE, CBC #### [facility] [address] [place] [address] Urobilinogen Auto test strip (U) [Mass/Vol]Ordered By: Eric Dooley on 04-08-2023 Urobilinogen (U) [Mass/Vol] Normal mg/dL Normal [facility] Alanine aminotransferase [En zymatic activity/volume] in Serum or PlasmaOrdered By: Declan Marina on 04-06-2023 ALT [Catalytic activity/Vol] 273 U/L High 7-52 [facility] Comment on above: Performed By: #### E ODALIS, MG, CMP, CBC #### [address] Albumin [Mass/volume] in Ser um or Plasma by Bromocresol green (BCG) dye binding methoOrdered By: Declan Marina on 04-06-2023 Albumin BCG dye [Mass/Vol] 4.1 g/dL 3.5-5.7 [facility] Alkaline phosphatase [Enzyma tic activity/volume] in Serum or PlasmaOrdered By: Declan Marina on 04-06-2023 ALP [Catalytic activity/Vol] 73 U/L Normal 34-104 [facility] Comment on above: Performed By: #### E ODALIS, MG, CMP, CBC #### [address] Aspartate aminotransferase [ Enzymatic activity/volume] in Serum or PlasmaOrdered By: Declan Marina on 04-06-2023 AST [Catalytic activity/Vol] 285 U/L High 13-39 [facility] Comment on above: Performed By: #### E ODALIS, MG, CMP, CBC #### [address] Automated basophil %Ordered By: Declan Marina on 04-06-2023 Basophils/100 WBC (Bld) 0.7 % Normal . [facility] Comment on above: Performed By: #### E ODALIS, MG, CMP, CBC #### [address] Automated basophil countOrde red By: Declan Marina on 04-06-2023 Basophils (Bld) [#/Vol] 0.0 10*3/uL Normal 0.0-0.2 [facility] Comment on above: Result Comment: PERF ORMED BY: [place] [address] PATHOLOGIST HEADING REPAIRER LEE CARDOSO M.D. Performed By: #### E ODALIS, MG, CMP, CBC #### [address] Automated blood monocyte cou ntOrdered By: Declan Marina on 04-06-2023 Monocytes (Bld) [#/Vol] 0.3 10*3/uL Normal 0.0-0.8 [facility] Comment on above: Performed By: #### E ODALIS, MG, CMP, CBC #### [address] Automated eosinophil %Ordere d By: Declan Marina on 04-06-2023 Eosinophils/100 WBC (Bld) 1.0 % Normal . [facility] Comment on above: Performed By: #### E ODALIS, MG, CMP, CBC #### [address] Automated eosinophil countOr dered By: Declan Marina on 04-06-2023 Eosinophils (Bld) [#/Vol] 0.1 10*3/uL Normal 0.0-0.45 [facility] Comment on above: Performed By: #### E ODALIS, MG, CMP, CBC #### [address] Automated monocyte %Ordered By: Declan Marina on 04-06-2023 Monocytes/100 WBC (Bld) 4.2 % Normal . [facility] Comment on above: Performed By: #### E ODALIS, MG, CMP, CBC #### [address] Automated neutrophil %Ordere d By: Declan Marina on 04-06-2023 Neutrophils/100 WBC (Bld) 60.9 % Normal . [facility] Comment on above: Performed By: #### E ODALIS, MG, CMP, CBC #### [address] Bilirubin.total [Mass/volume ] in Serum or PlasmaOrdered By: Declan Marina on 04-06-2023 Bilirubin [Mass/Vol] 0.2 mg/dL Low 0.3-1.0 [facility] Comment on above: Performed By: #### E ODALIS, MG, CMP, CBC #### [address] Calcium [Mass/volume] in Ser um or PlasmaOrdered By: Declan Marina on 04-06-2023 Calcium [Mass/Vol] 8.6 mg/dL Normal 8.6-10.3 [facility] Comment on above: Performed By: #### E ODALIS, MG, CMP, CBC #### [facility] [address] [place] [address] Carbon dioxide, total [Moles /volume] in Serum or PlasmaOrdered By: Declan Marina on 04-06-2023 CO2 [Moles/Vol] 21.9 mmol/L Normal 21.0-31.0 [facility] Comment on above: Performed By: #### E ODALIS, MG, CMP, CBC #### [address] Chloride [Moles/volume] in S marbella or PlasmaOrdered By: Declan Marina on 04-06-2023 Chloride [Moles/Vol] 109 mmol/L High 98-107 [facility] Comment on above: Performed By: #### E ODALIS, MG, CMP, CBC #### [facility] [address] [place] [address] Complete Blood Count Auto Di ffon 04-06-2023 Mean Corpuscular HGB Conc 34.5 g/dL Normal 32.0-35.0 [facility] Comment on above: Performed By: #### E ODALIS, MG, CMP, CBC #### [address] Monocytes/100 WBC (Bld) 17.69 % Normal 0.00-20.00 [facility] Comment on above: Performed By: #### E ODALIS, MG, CMP, CBC #### [facility] [address] [place] [address] NRBC% 0.2 /100{WBC} Normal 0-0.5 [facility] Comment on above: Performed By: #### E ODALIS, MG, CMP, CBC #### [address] Comprehensive Metabolic Pane mary beth 04-06-2023 Albumin [Mass/Vol] 4.1 g/dL Normal 3.5-5.7 [facility] Comment on above: Performed By: #### E ODALIS, MG, CMP, CBC #### [address] Creatinine Clr Calc Pharmacy 154.57 Normal [facility] Comment on above: Result Comment: PERF ORMED BY: [place] [address] PATHOLOGIST HEADING REPAIRER LEE CARDOSO M.D. Performed By: #### E ODALIS, MG, CMP, CBC #### [address] GFR/1.73 sq M.predicted MDRD (S/P/Bld) [Vol rate/Area] mL/min/{1.73_m2} Normal [facility] Comment on above: Performed By: #### E ODALIS, MG, CMP, CBC #### [address] Creatinine [Mass/volume] in Serum or PlasmaOrdered By: Declan Marina on 04-06-2023 Creatinine [Mass/Vol] 0.49 mg/dL Low 0.60-1.20 [facility] Comment on above: Performed By: #### E ODALIS, MG, CMP, CBC #### [address] Erythrocyte distribution wid th [Ratio] by Automated countOrdered By: Declan Marina on 04-06-2023 Erythrocyte distribution width (RBC) [Ratio] 13.9 % Normal 11.9-15.3 [facility] Comment on above: Performed By: #### E ODALIS, MG, CMP, CBC #### [address] Erythrocytes [#/volume] in B lood by Automated countOrdered By: Declan Marina on 04-06-2023 RBC (Bld) [#/Vol] 4.33 10*6/uL Normal 3.60-5.[address] [facility] Comment on above: Performed By: #### E ODALIS, MG, CMP, CBC #### [facility] [address] Ethanol [Mass/volume] in Ser um or PlasmaOrdered By: Declan Marina on 04-06-2023 Ethanol [Mass/Vol] 339 mg/dL Normal [facility] Comment on above: Performed By: #### E ODALIS, MG, CMP, CBC #### [address] Ethanol [Mass/Vol] 0.339 % [facility] Ethyl Alcohol Profileon 03-15 Percent Ethanol 0.339 % Normal [facility] Comment on above: Result Comment: PERF ORMED BY: [place] [address] PATHOLOGIST HEADING REPAIRER LEE CARDOSO M.D. Performed By: #### E ODALIS MG, CMP, CBC #### [address] Glucose [Mass/volume] in Ser um or PlasmaOrdered By: Declan Marina on 04-06-2023 Glucose [Mass/Vol] 83 mg/dL Normal 70-100 [facility] Comment on above: ADA recommended refe rence rangeRandom Glucose Reference Range is dependent on time and content of last meal. Glucose of more than 200 mg/dL in a nonstressed, ambulatory subject supports the diagnosis of Diabetes Mellitus. Result Comment: [place] om Glucose Reference Range is dependent on time and content of last meal. Glucose of more than 200 mg/dL in a nonstressed, ambulatory subject supports the diagnosis of Diabetes Mellitus. ADA recommended reference range Performed By: #### E ODALIS, MG, CMP, CBC #### [facility] [address] Hematocrit [Volume Fraction] of Blood by Automated countOrdered By: Declan Marina on 04-06-2023 Hematocrit (Bld) [Volume fraction] 42.6 % Normal 34.0-46.4 [facility] Comment on above: Performed By: #### E ODALIS, MG, CMP, CBC #### [facility] [address] [place] [address] Hemoglobin [Mass/volume] in BloodOrdered By: Declan Marina on 04-06-2023 Hemoglobin (Bld) [Mass/Vol] 14.7 g/dL Normal 11.8-15.4 [facility] Comment on above: Performed By: #### E ODALIS, MG, CMP, CBC #### [facility] [address] [place] [address] Leukocytes [#/volume] correc jose for nucleated erythrocytes in Blood by Automated counOrdered By: Declan Marina on 04-06-2023 WBC corrected for nucl RBC Auto (Bld) [#/Vol] 6.9 10*3/uL 3.8-11.6 [facility] Leukocytes [#/volume] in Blo od by Automated countOrdered By: Declan Marina on 04-06-2023 WBC (Bld) [#/Vol] 6.9 10*3/uL Normal 3.8-11.6 [facility] Comment on above: Performed By: #### E ODALIS, MG, CMP, CBC #### [facility] [address] [place] [address] Lymphocytes [#/volume] in Bl ood by Automated countOrdered By: Declan Marina on 04-06-2023 Lymphocytes (Bld) [#/Vol] 2.3 10*3/uL Normal 1.00-4.8 [facility] Comment on above: Performed By: #### E ODALIS, MG, CMP, CBC #### [facility] [address] [place] [address] [place] Lymphocytes/100 leukocytes i n Blood by Automated countOrdered By: Declan Marina on 04-06-2023 Lymphocytes/100 WBC (Bld) 33.2 % Normal . [facility] Comment on above: Performed By: #### E ODALIS, MG, CMP, CBC #### [facility] [address] [place] [address] MCH [Entitic mass] by Automa jose countOrdered By: Declan Marina on 04-06-2023 MCH (RBC) [Entitic mass] 34.0 pg Normal 24.7-34.3 [facility] Comment on above: Performed By: #### E ODALIS, MG, CMP, CBC #### [facility] [address] [place] [address] MCHC Auto (RBC) [Mass/Vol]Or dered By: Declan Marina on 04-06-2023 MCHC (RBC) [Mass/Vol] 34.5 g/dL 32.0-35.0 [facility] MCV [Entitic volume] by Auto mated countOrdered By: Declan Marina on 04-06-2023 MCV (RBC) [Entitic vol] 98.5 fL Normal 80-100 [facility] Comment on above: Performed By: #### E ODALIS, MG, CMP, CBC #### [facility] [address] [place] [address] Monocyte distribution width [Entitic volume] in Blood by AutomatedOrdered By: Declan Marina on 04-06-2023 Monocyte distribution width Auto (Bld) [Entitic vol] 17.69 % 0.00-20.00 [facility] Neutrophils [#/volume] in Bl ood by Automated countOrdered By: Declan Marina on 04-06-2023 Neutrophils (Bld) [#/Vol] 4.2 10*3/uL Normal 1.8-7.7 [facility] Comment on above: Performed By: #### E ODALIS, MG, CMP, CBC #### [facility] [address] [place] [address] No Panel InformationOrdered By: Declan Marina on 04-06-2023 Estimated GFR (CKD-EPI) > 60.0 mL/Min [facility] Creatinine Clearance (Chem 154.57 [facility] Nucleated erythrocytes [Pres ence] in Blood by Automated countOrdered By: Declan Marina on 04-06-2023 Nucleated RBC Auto Ql (Bld) 0.2 /100{WBC} 0-0.5 [facility] Platelet mean volume [Entiti c volume] in Blood by Automated countOrdered By: Declan Marina on 04-06-2023 Platelet mean volume (Bld) [Entitic vol] 8.0 fL Normal 6.3-10.7 [facility] Comment on above: Performed By: #### E ODALIS, MG, CMP, CBC #### [facility] [address] Platelets [#/volume] in Bloo d by Automated countOrdered By: Declan Marina on 04-06-2023 Platelets (Bld) [#/Vol] 164 10*3/uL Normal 150-450 [facility] Comment on above: Performed By: #### E ODALIS, MG, CMP, CBC #### [address] Potassium [Moles/volume] in Serum or PlasmaOrdered By: Declan Marina on 04-06-2023 Potassium [Moles/Vol] 4.3 mmol/L Normal 3.5-5.1 [facility] Comment on above: Performed By: #### E ODALIS, MG, CMP, CBC #### [facility] [address] [place] [address] Protein [Mass/volume] in Ser um or PlasmaOrdered By: Declan Marina on 04-06-2023 Protein [Mass/Vol] 7.5 g/dL Normal 6.4-8.9 [facility] Comment on above: Performed By: #### E ODALIS, MG, CMP, CBC #### [address] Serum globulin measurement b y calculation (mass/volume)Ordered By: Declan Marina on 04-06-2023 Globulin (S) [Mass/Vol] 3.4 g/dL [facility] Comment on above: Performed By: #### E ODALIS, MG, CMP, CBC #### [facility] [address] [place] [address] Serum or plasma albumin/glob ulin mass ratioOrdered By: Declan Marina on 04-06-2023 Albumin/Globulin [Mass ratio] 1.2 {ratio} [facility] Comment on above: Performed By: #### E ODALIS, MG, CMP, CBC #### [facility] [address] [place] [address] Serum or plasma anion gap de terminationOrdered By: Declan Marina on 04-06-2023 Anion gap [Moles/Vol] 12.4 mmol/L Normal 6.0-15.0 [facility] Comment on above: Performed By: #### E ODALIS, MG, CMP, CBC #### [facility] [address] Sodium [Moles/volume] in Ser um or PlasmaOrdered By: Declan Marina on 04-06-2023 Sodium [Moles/Vol] 139 mmol/L Normal 136-145 [facility] Comment on above: Performed By: #### E ODALIS, MG, CMP, CBC #### [facility] [address] Urea nitrogen [Mass/volume] in Serum or PlasmaOrdered By: Declan Marina on 04-06-2023 Urea nitrogen [Mass/Vol] 11 mg/dL Normal 7-25 [facility] Comment on above: Performed By: #### E ODALIS, MG, CMP, CBC #### [facility] [address] [place] [address] ED Note-Physicianon 03-18-19 ED Note-Physician [id number] 2009 [id number] F Normal [facility] Alanine aminotransferase [En zymatic activity/volume] in Serum or PlasmaOrdered By: Delvis Benz on 03-17-2023 ALT [Catalytic activity/Vol] 131 U/L High 7-52 [facility] Comment on above: Performed By: #### E ODALIS, MG, CMP, CBC #### [facility] [address] [place] [address] [place] Albumin [Mass/volume] in Ser um or Plasma by Bromocresol green (BCG) dye binding methoOrdered By: Delvis Benz on 03-17-2023 Albumin BCG dye [Mass/Vol] 4.2 g/dL 3.5-5.7 [facility] Alkaline phosphatase [Enzyma tic activity/volume] in Serum or PlasmaOrdered By: Delvis Benz on 03-17-2023 ALP [Catalytic activity/Vol] 64 U/L Normal 34-104 [facility] Comment on above: Performed By: #### E ODALIS, MG, CMP, CBC #### [facility] [address] [place] [address] Amphetamine Screen Ql (U)Ord ered By: Delvis Benz on 03-17-2023 Amphetamines Ql (U) Negative Negative [facility] Aspartate aminotransferase [ Enzymatic activity/volume] in Serum or PlasmaOrdered By: Delvis Benz on 03-17-2023 AST [Catalytic activity/Vol] 126 U/L High 13-39 [facility] Comment on above: Performed By: #### E ODALIS, MG, CMP, CBC #### [facility] [address] [place] [address] Automated basophil %Ordered By: Delvis Benz on 03-17-2023 Basophils/100 WBC (Bld) 0.6 % Normal . [facility] Comment on above: Performed By: #### E ODALIS, MG, CMP, CBC #### [facility] [address] [place] [address] Automated basophil countOrde red By: Delvis Benz on 03-17-2023 Basophils (Bld) [#/Vol] 0.0 10*3/uL Normal 0.0-0.2 [facility] Comment on above: Result Comment: PERF ORMED BY: [place] [address] PATHOLOGIST HEADING REPAIRER LEE CARDOSO M.D. Performed By: #### E ODALIS, MG, CMP, CBC #### [facility] [address] [place] [address] Automated blood monocyte cou ntOrdered By: Delvis Benz on 03-17-2023 Monocytes (Bld) [#/Vol] 0.4 10*3/uL Normal 0.0-0.8 [facility] Comment on above: Performed By: #### E ODALIS, MG, CMP, CBC #### [facility] [address] [place] [address] Automated eosinophil %Ordere d By: Delvis Benz on 03-17-2023 Eosinophils/100 WBC (Bld) 1.1 % Normal . [facility] Comment on above: Performed By: #### E ODALIS, MG, CMP, CBC #### [address] Automated eosinophil countOr dered By: Delvis Benz on 03-17-2023 Eosinophils (Bld) [#/Vol] 0.1 10*3/uL Normal 0.0-0.45 [facility] Comment on above: Performed By: #### E ODALIS, MG, CMP, CBC #### [address] Automated erythrocytes count in urine sediment (number/area)Ordered By: Delvis Benz on 03-17-2023 RBC Auto (Urine sed) [#/Area] 0-1 [HPF] 0-4 [facility] Automated leukocytes count i n urine sediment (number/area)Ordered By: Delvis Benz on 03-17-2023 WBC Auto (Urine sed) [#/Area] 10-19 [HPF] 0-4 [facility] Automated monocyte %Ordered By: Delvis Benz on 03-17-2023 Monocytes/100 WBC (Bld) 5.0 % Normal . [facility] Comment on above: Performed By: #### E ODALIS, MG, CMP, CBC #### [address] Automated neutrophil %Ordere d By: Delvis Benz on 03-17-2023 Neutrophils/100 WBC (Bld) 43.9 % Normal . [facility] Comment on above: Performed By: #### E ODALIS, MG, CMP, CBC #### [address] Automated urine color determ inationOrdered By: Delvis Benz on 03-17-2023 Color (U) Yellow Normal Yellow [facility] Comment on above: Order Comment: Name Collection Type:: Clean-Voided Midstream Performed By: #### E ODALIS, MG, CMP, CBC #### [address] Barbiturates [Presence] in U rine by Screen methodOrdered By: Delvis Benz on 03-17-2023 Barbiturates Screen Ql (U) Negative Negative [facility] Benzodiazepines Screen Ql (U )Ordered By: Delvis Benz on 03-17-2023 Benzodiazepines Ql (U) Negative Negative [facility] Benzoylecgonine [Presence] i n Urine by Screen methodOrdered By: Delvis Benz on 03-17-2023 Benzoylecgonine Screen Ql (U) Positive Negative [facility] Bilirubin Test strip Ql (U)O rdered By: Delvis Benz on 03-17-2023 Bilirubin Ql (U) Negative Negative [facility] Bilirubin.total [Mass/volume ] in Serum or PlasmaOrdered By: Delvis Benz on 03-17-2023 Bilirubin [Mass/Vol] 0.9 mg/dL Normal 0.3-1.0 [facility] Comment on above: Performed By: #### E ODALIS, MG, CMP, CBC #### [facility] [address] [place] [address] Calcium [Mass/volume] in Ser um or PlasmaOrdered By: Delvis Benz on 03-17-2023 Calcium [Mass/Vol] 8.8 mg/dL Normal 8.6-10.3 [facility] Comment on above: Performed By: #### E ODALIS, MG, CMP, CBC #### [facility] [address] [place] [address] Cannabinoids [Presence] in U rine by Screen methodOrdered By: Delvis Benz on 03-17-2023 Cannabinoids Screen Ql (U) Negative Negative [facility] Comment on above: These are unconfirme d results and should not be used for legal purposes. Drug Cut-Off Concentration: AMPH 1000 ng/mL JANELL 200 ng/mL JAMES 200 ng/mL COCM 300 ng/mL OP 300 ng/mL PCP 25 ng/mL THC 20 ng/mL Carbon dioxide, total [Moles /volume] in Serum or PlasmaOrdered By: Delvis Benz on 03-17-2023 CO2 [Moles/Vol] 25.3 mmol/L Normal 21.0-31.0 [facility] Comment on above: Performed By: #### E ODALIS, MG, CMP, CBC #### [address] Chloride [Moles/volume] in S marbella or PlasmaOrdered By: Delvis Benz on 03-17-2023 Chloride [Moles/Vol] 104 mmol/L Normal 98-107 [facility] Comment on above: Performed By: #### E ODALIS, MG, CMP, CBC #### [address] Complete Blood Count Auto Di ffon 03-17-2023 Mean Corpuscular HGB Conc 34.9 g/dL Normal 32.0-35.0 [facility] Comment on above: Performed By: #### E ODALIS, MG, CMP, CBC #### [address] Monocytes/100 WBC (Bld) 18.74 % Normal 0.00-20.00 [facility] Comment on above: Performed By: #### E ODALIS, MG, CMP, CBC #### [address] NRBC% 0.1 /100{WBC} Normal 0-0.5 [facility] Comment on above: Performed By: #### E ODALIS, MG, CMP, CBC #### [address] Comprehensive Metabolic Pane mary beth 03-17-2023 Albumin [Mass/Vol] 4.2 g/dL Normal 3.5-5.7 [facility] Comment on above: Performed By: #### E ODALIS, MG, CMP, CBC #### [address] Creatinine Clr Calc Pharmacy 119.57 Normal [facility] Comment on above: Performed By: #### E ODALIS, MG, CMP, CBC #### [address] GFR/1.73 sq M.predicted MDRD (S/P/Bld) [Vol rate/Area] mL/min/{1.73_m2} Normal [facility] Comment on above: Performed By: #### E ODALIS, MG, CMP, CBC #### [facility] [address] Creatinine [Mass/volume] in Serum or PlasmaOrdered By: Delvis Benz on 03-17-2023 Creatinine [Mass/Vol] 0.63 mg/dL Normal 0.60-1.20 [facility] Comment on above: Performed By: #### E ODALIS, MG, CMP, CBC #### [facility] [address] [place] [address] [place] Dipstick and Microscopicon 0 03-17-2023 Appearance (U) Clear Normal Clear [facility] Comment on above: Order Comment: Name Collection Type:: Clean-Voided Midstream Performed By: #### E ODALIS, MG, CMP, CBC #### [address] Bacteria,Urine None Seen Normal None Seen [facility] Comment on above: Order Comment: Name Collection Type:: Clean-Voided Midstream Performed By: #### E ODALIS, MG, CMP, CBC #### [place] [address] [place] Bilirubin,Urine Negative Normal Negative [facility] Comment on above: Order Comment: Name Collection Type:: Clean-Voided Midstream Performed By: #### E ODALIS, MG, CMP, CBC #### [facility] [address] [place] [address] Glucose Ql (U) Normal Normal Normal [facility] Comment on above: Order Comment: Name Collection Type:: Clean-Voided Midstream Performed By: #### E ODALIS, MG, CMP, CBC #### [place] [address] [place] Hyaline Casts,Urine 0-8 Normal 0-8 [facility] Comment on above: Order Comment: Name Collection Type:: Clean-Voided Midstream Performed By: #### E ODALIS, MG, CMP, CBC #### [facility] [address] [place] [address] Ketones Ql (U) Negative Normal Negative [facility] Comment on above: Order Comment: Name Collection Type:: Clean-Voided Midstream Performed By: #### E ODALIS, MG, CMP, CBC #### [address] Leukocyte esterase Test strip Ql (U) 2+ High Negative [facility] Comment on above: Order Comment: Name Collection Type:: Clean-Voided Midstream Performed By: #### E ODALIS, MG, CMP, CBC #### [place] [address] [place] Nitrite,Urine Negative Normal Negative [facility] Comment on above: Order Comment: Name Collection Type:: Clean-Voided Midstream Performed By: #### E ODALIS, MG, CMP, CBC #### [address] Occult Blood,Urine Negative Normal Negative [facility] Comment on above: Order Comment: Name Collection Type:: Clean-Voided Midstream Performed By: #### E ODALIS, MG, CMP, CBC #### [address] Protein,Urine Negative Normal Negative [facility] Comment on above: Order Comment: Name Collection Type:: Clean-Voided Midstream Performed By: #### E ODALIS, MG, CMP, CBC #### [address] RBC LM.HPF (Urine sed) [#/Area] 0 /[HPF] Normal 0-4 [facility] Comment on above: Order Comment: Name Collection Type:: Clean-Voided Midstream Performed By: #### E ODALIS, MG, CMP, CBC #### [address] Specificy [place],Urine 1.029 Normal 1.001-1.030 [facility] Comment on above: Order Comment: Name Collection Type:: Clean-Voided Midstream Performed By: #### E ODALIS, MG, CMP, CBC #### [place] [address] [place] Squamous Epithelial Cell,Urine 3-4 High 0-2 [facility] Comment on above: Order Comment: Name Collection Type:: Clean-Voided Midstream Performed By: #### E ODALIS, MG, CMP, CBC #### [facility] [address] [place] [address] Urobilinogen,Urine Normal Normal Normal [facility] Comment on above: Order Comment: Name Collection Type:: Clean-Voided Midstream Performed By: #### E ODALIS, MG, CMP, CBC #### [facility] [address] [place] [address] WBC,Urine 10-19 High 0-4 [facility] Comment on above: Order Comment: Name Collection Type:: Clean-Voided Midstream Performed By: #### E ODALIS, MG, CMP, CBC #### [address] Yeast,Urine None Seen Normal None Seen [facility] Comment on above: Order Comment: Name Collection Type:: Clean-Voided Midstream Performed By: #### E ODALIS, MG, CMP, CBC #### [address] Drug Screen,Urineon 03-17-19 24 Amphetamine Screen,Urine Negative Normal Negative [facility] Comment on above: Performed By: #### E ODALIS, MG, CMP, CBC #### [address] Barbiturate Screen,Urine Negative Normal Negative [facility] Comment on above: Performed By: #### E ODALIS, MG, CMP, CBC #### [facility] [address] [place] [address] Benzodiazepines Screen,Urine Negative Normal Negative [facility] Comment on above: Performed By: #### E ODALIS, MG, CMP, CBC #### [address] Cannabinoid Screen,Urine Negative Normal Negative [facility] Comment on above: Result Comment: Thes e are unconfirmed results and should not be used for legal purposes. Drug Cut-Off Concentration: AMPH 1000 ng/mL JANELL 200 ng/mL JAMES 200 ng/mL COCM 300 ng/mL OP 300 ng/mL PCP 25 ng/mL THC 20 ng/mL PERFORMED BY: [place] [address] PATHOLOGIST HEADING REPAIRER LEE CARDOSO M.D. Performed By: #### E ODALIS, MG, CMP, CBC #### [address] Cocaine Screen,Urine Positive High Negative [facility] Comment on above: Performed By: #### E ODALIS, MG, CMP, CBC #### [address] Opiate Screen,Urine Negative Normal Negative [facility] Comment on above: Performed By: #### E ODALIS, MG, CMP, CBC #### [address] Phencyclidine Screen,Urine Negative Normal Negative [facility] Comment on above: Performed By: #### E ODALIS, MG, CMP, CBC #### [address] ECG 12 lead ECGon 03-17-2023 ECG 12 lead ECG [facility] [place] [address] [place] [address] Electrocardiograph Report Signed Patient: Lyle Bailey MR#: [id number] : 1990 Acct:[id number] Age/Sex: 33 / F ADM Date: 03/17/23 Loc: ER Room: Type: [facility] ER Attending Dr: Ordering Provider: Delvis [...] was found Confirmed by DELVIS BENZ DO ([id number]) on 03/17/2023 4:22:17 PM Referred By: Electronically Signed By:DELVIS BENZ DO Transcribed By: MUS Signed By Delvis Benz DO 03/17 1622 Normal [facility] Erythrocyte distribution wid th [Ratio] by Automated countOrdered By: Delvis Benz on 03-17-2023 Erythrocyte distribution width (RBC) [Ratio] 13.3 % Normal 11.9-15.3 [facility] Comment on above: Performed By: #### E ODALIS, MG, CMP, CBC #### [facility] [address] [place] [id number] [facility] Erythrocytes [#/volume] in B lood by Automated countOrdered By: Delvis Benz on 03-17-2023 RBC (Bld) [#/Vol] 4.24 10*6/uL Normal 3.60-5.[address] [facility] Comment on above: Performed By: #### E ODALIS, MG, CMP, CBC #### [facility] [address] [place] [id number] [place] Glucose [Mass/volume] in Ser um or PlasmaOrdered By: Delvis Benz on 03-17-2023 Glucose [Mass/Vol] 88 mg/dL Normal 70-100 [facility] Comment on above: ADA recommended refe rence rangeRandom Glucose Reference Range is dependent on time and content of last meal. Glucose of more than 200 mg/dL in a nonstressed, ambulatory subject supports the diagnosis of Diabetes Mellitus. Result Comment: [place] om Glucose Reference Range is dependent on time and content of last meal. Glucose of more than 200 mg/dL in a nonstressed, ambulatory subject supports the diagnosis of Diabetes Mellitus. ADA recommended reference range Performed By: #### E ODALIS, MG, CMP, CBC #### [facility] [address] [place] [id number] [place] HCG ( test) Tammy martinez Ql (U)Ordered By: Delvis Benz on 03-17-2023 HCG ( test) Ql (U) Negative [facility] HCG,Urineon 03-17-2023 Beta HCG ( test) Ql (U) Negative Normal [facility] Comment on above: Order Comment: Name Collection Type:: Clean-Voided Midstream Result Comment: PERF ORMED BY: [place] [address] PATHOLOGIST HEADING REPAIRER LEE CARDOSO M.D. Performed By: #### E ODALIS, MG, CMP, CBC #### [facility] [address] Hematocrit [Volume Fraction] of Blood by Automated countOrdered By: Delvis Benz on 03-17-2023 Hematocrit (Bld) [Volume fraction] 40.7 % Normal 34.0-46.4 [facility] Comment on above: Performed By: #### E ODALIS, MG, CMP, CBC #### [facility] [address] [place] [address] Hemoglobin [Mass/volume] in BloodOrdered By: Delvis Benz on 03-17-2023 Hemoglobin (Bld) [Mass/Vol] 14.2 g/dL Normal 11.8-15.4 [facility] Comment on above: Performed By: #### E ODALIS, MG, CMP, CBC #### [facility] [address] [place] [address] [place] INR in Platelet poor plasma by Coagulation assayOrdered By: Delvis Benz on 03-17-2023 INR Coag (PPP) [Relative time] 1.0 {INR} Normal [facility] Comment on above: INR Therapeutic Rang e [...] heart valves: 3 - 4.5 PERFORMED BY: [place] [address] PATHOLOGIST HEADING REPAIRER LEE CARDOSO M.D. Performed By: #### E ODALIS, MG, CMP, CBC #### [facility] [address] [place], [place] [id number] [facility] Ketones Auto test strip (U) [Mass/Vol]Ordered By: Delvis Benz on 03-17-2023 Ketones (U) [Mass/Vol] Negative Negative [facility] Laboratory - UrinalysisOrder ed By: Delvis Benz on 03-17-2023 Hyaline casts LM Ql (Urine sed) 0-8 [LPF] 0-8 [facility] Leukocytes [#/volume] correc jose for nucleated erythrocytes in Blood by Automated counOrdered By: Delvis Benz on 03-17-2023 WBC corrected for nucl RBC Auto (Bld) [#/Vol] 7.2 10*3/uL 3.8-11.6 [facility] Leukocytes [#/volume] in Blo od by Automated countOrdered By: Delvis Benz on 03-17-2023 WBC (Bld) [#/Vol] 7.2 10*3/uL Normal 3.8-11.6 [facility] Comment on above: Performed By: #### E ODALIS, MG, CMP, CBC #### [facility] [address] [place] [address] Lipase [Enzymatic activity/v olume] in Serum or PlasmaOrdered By: Delvis Benz on 03-17-2023 Lipase [Catalytic activity/Vol] 67.0 U/L Normal 11.0-82.0 [facility] Comment on above: Result Comment: PERF ORMED BY: [place] [address] PATHOLOGIST HEADING REPAIRER LEE CARDOSO M.D. Performed By: #### E ODALIS, MG, CMP, CBC #### [facility] [address] [place] [address] [place] Lymphocytes [#/volume] in Bl ood by Automated countOrdered By: Delvis Benz on 03-17-2023 Lymphocytes (Bld) [#/Vol] 3.6 10*3/uL Normal 1.00-4.8 [facility] Comment on above: Performed By: #### E ODALIS, MG, CMP, CBC #### [facility] [address] [place] [address] Lymphocytes/100 leukocytes i n Blood by Automated countOrdered By: Delvis Benz on 03-17-2023 Lymphocytes/100 WBC (Bld) 49.4 % Normal . [facility] Comment on above: Performed By: #### E ODALIS, MG, CMP, CBC #### [facility] [address] [place] [address] MCH [Entitic mass] by Automa jose countOrdered By: Delvis Benz on 03-17-2023 MCH (RBC) [Entitic mass] 33.5 pg Normal 24.7-34.3 [facility] Comment on above: Performed By: #### E ODALIS, MG, CMP, CBC #### [address] MCHC Auto (RBC) [Mass/Vol]Or dered By: Delvis Benz on 03-17-2023 MCHC (RBC) [Mass/Vol] 34.9 g/dL 32.0-35.0 [facility] MCV [Entitic volume] by Auto mated countOrdered By: Delvis Benz on 03-17-2023 MCV (RBC) [Entitic vol] 95.9 fL Normal 80-100 [facility] Comment on above: Performed By: #### E ODALIS, MG, CMP, CBC #### [facility] [address] [place] [address] Monocyte distribution width [Entitic volume] in Blood by AutomatedOrdered By: Delvis Benz on 03-17-2023 Monocyte distribution width Auto (Bld) [Entitic vol] 18.74 % 0.00-20.00 [facility] Neutrophils [#/volume] in Bl ood by Automated countOrdered By: Delvis Benz on 03-17-2023 Neutrophils (Bld) [#/Vol] 3.2 10*3/uL Normal 1.8-7.7 [facility] Comment on above: Performed By: #### E ODALIS, MG, CMP, CBC #### [facility] [address] Nitrite Test strip Ql (U)Ord ered By: Delvis Benz on 03-17-2023 Nitrite Ql (U) Negative Negative [facility] No Panel InformationOrdered By: Delvis Benz on 03-17-2023 Estimated GFR (CKD-EPI) > 60.0 mL/Min [facility] Creatinine Clearance (Chem 119.57 [facility] Nucleated erythrocytes [Pres ence] in Blood by Automated countOrdered By: Delvis Benz on 03-17-2023 Nucleated RBC Auto Ql (Bld) 0.1 /100{WBC} 0-0.5 [facility] Opiates [Presence] in Urine by Screen methodOrdered By: Delvis Benz on 03-17-2023 Opiates Screen Ql (U) Negative Negative [facility] Phencyclidine Screen Ql (U)O rdered By: Delvis Benz on 03-17-2023 Phencyclidine Ql (U) Negative Negative [facility] Platelet mean volume [Entiti c volume] in Blood by Automated countOrdered By: Delvis Benz on 03-17-2023 Platelet mean volume (Bld) [Entitic vol] 8.5 fL Normal 6.3-10.7 [facility] Comment on above: Performed By: #### E ODALIS, MG, CMP, CBC #### [facility] [address] Platelets [#/volume] in Bloo d by Automated countOrdered By: Delvis Benz on 03-17-2023 Platelets (Bld) [#/Vol] 139 10*3/uL Low 150-450 [facility] Comment on above: Performed By: #### E ODALIS, MG, CMP, CBC #### [facility] [address] [place] [address] [place] Potassium [Moles/volume] in Serum or PlasmaOrdered By: Delvis Benz on 03-17-2023 Potassium [Moles/Vol] 3.8 mmol/L Normal 3.5-5.1 [facility] Comment on above: Performed By: #### E ODALIS, MG, CMP, CBC #### [facility] [address] Protein Auto test strip (U) [Mass/Vol]Ordered By: Delvis Benz on 03-17-2023 Protein (U) [Mass/Vol] Negative Negative [facility] Protein [Mass/volume] in Ser um or PlasmaOrdered By: Delvis Benz on 03-17-2023 Protein [Mass/Vol] 7.5 g/dL Normal 6.4-8.9 [facility] Comment on above: Performed By: #### E ODALIS, MG, CMP, CBC #### [address] Prothrombin time (PT)Ordered By: Delvis Benz on 03-17-2023 PT Coag (PPP) [Time] 11.6 s Normal 9.0-12.9 [facility] Comment on above: A hematocrit value g reater than 55% may lead to inaccurate results in coagulation testing. Patients having hematocrit values >55% require a special collection tube for coagulation studies. Please contact the laboratory at [phone] for redraw instructions. Result Comment: A he matocrit value greater than 55% may lead to inaccurate results in coagulation testing. Patients having hematocrit values >55% require a special collection tube for coagulation studies. Please contact the laboratory at [phone] for redraw instructions. Performed By: #### E ODALIS, MG, CMP, CBC #### [address] Serum globulin measurement b y calculation (mass/volume)Ordered By: Delvis Benz on 03-17-2023 Globulin (S) [Mass/Vol] 3.3 g/dL [facility] Comment on above: Performed By: #### E ODALIS, MG, CMP, CBC #### [address] Serum or plasma albumin/glob ulin mass ratioOrdered By: Delvis Benz on 03-17-2023 Albumin/Globulin [Mass ratio] 1.3 {ratio} [facility] Comment on above: Performed By: #### E ODALIS, MG, CMP, CBC #### [facility] [address] Serum or plasma anion gap de terminationOrdered By: Delvis Benz on 03-17-2023 Anion gap [Moles/Vol] 11.5 mmol/L Normal 6.0-15.0 [facility] Comment on above: Performed By: #### E ODALIS, MG, CMP, CBC #### [address] Sodium [Moles/volume] in Ser um or PlasmaOrdered By: Delvis Benz on 03-17-2023 Sodium [Moles/Vol] 137 mmol/L Normal 136-145 [facility] Comment on above: Performed By: #### E ODALIS, MG, CMP, CBC #### [address] Specific gravity Auto test s trip (U) [Rel density]Ordered By: Delvis Benz on 03-17-2023 Specific gravity (U) [Rel density] 1.029 1.001-1.030 [facility] Squamous epithelial cells de tection in urine sediment by light microscopyOrdered By: Delvis Benz on 03-17-2023 Epithelial cells.squamous LM Ql (Urine sed) 3-4 [HPF] 0-2 [facility] Urea nitrogen [Mass/volume] in Serum or PlasmaOrdered By: Delvis Benz on 03-17-2023 Urea nitrogen [Mass/Vol] 16 mg/dL Normal 7-25 [facility] Comment on above: Performed By: #### E ODALIS, MG, CMP, CBC #### [address] Urine Cultureon 03-17-2023 Bacteria identified Cx Nom (U) ORGANISM: Strep. agalactiae Grp B (O:B) [place] Count 10,000 PERFORMED BY: [place] [address] PATHOLOGIST HEADING REPAIRER LEE CARDOSO M.D. Normal [facility] Comment on above: Performed By: #### E ODALIS, MG, CMP, CBC #### [address] Urine bacteria detection by automated methodOrdered By: Delvis Benz on 03-17-2023 Bacteria Auto Ql (U) None seen None Seen [facility] Urine clarity by refractomet ry automatedOrdered By: Delvis Benz on 03-17-2023 Clarity Refractometry automated (U) Clear Clear [facility] Urine culture routineOrdered By: Delvis Benz on 03-17-2023 Bacteria identified Cx Nom (U) Strep. agalactiae Grp B [facility] Bacteria identified Cx Nom (U) Strep. agalactiae Grp B [facility] Urine glucose measurement by automated test strip (mass/volume)Ordered By: Delvis Benz on 03-17-2023 Glucose Auto test strip (U) [Mass/Vol] Normal mg/dL Normal [facility] Urine hemoglobin detection b y automated test stripOrdered By: Delvis Benz on 03-17-2023 Hemoglobin Auto test strip Ql (U) Negative Negative [facility] Urine leukocyte esterase det ection by automated test stripOrdered By: Delvis Benz on 03-17-2023 Leukocyte esterase Auto test strip Ql (U) 2+ Negative [facility] Urine pH measurement by auto mated test stripOrdered By: Delvis Benz on 03-17-2023 pH (U) 6.0 [pH] Normal 5.0-9.0 [facility] Comment on above: Order Comment: Name Collection Type:: Clean-Voided Midstream Performed By: #### E ODALIS, MG, CMP, CBC #### [facility] [address] [place] [address] [facility] Urobilinogen Auto test strip (U) [Mass/Vol]Ordered By: Delvis Benz on 03-17-2023 Urobilinogen (U) [Mass/Vol] Normal mg/dL Normal [facility] Yeast detection in urine sed iment by light microscopyOrdered By: Delvis Benz on 03-17-2023 Yeast LM Ql (Urine sed) None seen [HPF] None Seen [facility] ECG 12 lead ECGon 03-12-2023 ECG 12 lead ECG [facility] [address] [place] [address] [place] [address] Electrocardiograph Report Signed Patient: Lyle Bailey MR#: [id number] : 1990 Acct:[id number] Age/Sex: 33 / F ADM Date: 03/12/23 Loc: ER Room: Type: [facility] ER Attending Dr: Ordering Provider: Azra [...] By Azra Farmer DO 2022 Normal [facility] ECG 12 lead ECGon 03-04-2023 ECG 12 lead ECG [facility] [place] [address] Electrocardiograph Report Signed Patient: Lyle Bailey MR#: [id number] : 1990 Acct:[id number] Age/Sex: 33 / F ADM Date: 03/04/23 Loc: ER Room: Type: [facility] ER Attending Dr: Ordering Provider: Azra [...] Phil Alvarez MD 0 03/07/23 1037 Normal [facility] ED Note-Physicianon 02-25-19 ED Note-Physician [id number] [id number] F Normal [facility] Alanine aminotransferase [En zymatic activity/volume] in Serum or PlasmaOrdered By: Samanta Castro on 01-25-2023 ALT [Catalytic activity/Vol] 118 U/L High 7-52 [facility] Comment on above: Performed By: #### E ODALIS, MG, CMP, CBC #### [facility] [address] [place] [address] Albumin [Mass/volume] in Ser um or Plasma by Bromocresol green (BCG) dye binding methoOrdered By: Samanta Castro on 01-25-2023 Albumin BCG dye [Mass/Vol] 4.4 g/dL 3.5-5.7 [facility] Alkaline phosphatase [Enzyma tic activity/volume] in Serum or PlasmaOrdered By: Samanta Castro on 01-25-2023 ALP [Catalytic activity/Vol] 75 U/L Normal 34-104 [facility] Comment on above: Performed By: #### E ODALIS, MG, CMP, CBC #### [facility] [address] [place] [address] Amphetamine Screen Ql (U)Ord ered By: Samanta Castro on 01-25-2023 Amphetamines Ql (U) Positive Negative [facility] Aspartate aminotransferase [ Enzymatic activity/volume] in Serum or PlasmaOrdered By: Samanta Castro on 01-25-2023 AST [Catalytic activity/Vol] 84 U/L High 13-39 [facility] Comment on above: Performed By: #### E ODALIS, MG, CMP, CBC #### [facility] [address] [place] [address] Automated basophil %Ordered By: Samanta Castro on 01-25-2023 Basophils/100 WBC (Bld) 0.7 % Normal . [facility] Comment on above: Performed By: #### E ODALIS, MG, CMP, CBC #### [facility] [address] [place] [address] Automated basophil countOrde red By: Samanta Castro on 01-25-2023 Basophils (Bld) [#/Vol] 0.1 10*3/uL Normal 0.0-0.2 [facility] Comment on above: Result Comment: PERF ORMED BY: [place] [address] PATHOLOGIST HEADING REPAIRER LEE CARDOSO M.D. Performed By: #### E ODALIS, MG, CMP, CBC #### [address] Automated blood monocyte cou ntOrdered By: Samanta Castro on 01-25-2023 Monocytes (Bld) [#/Vol] 0.8 10*3/uL Normal 0.0-0.8 [facility] Comment on above: Performed By: #### E ODALIS, MG, CMP, CBC #### [address] Automated eosinophil %Ordere d By: Samanta Castro on 01-25-2023 Eosinophils/100 WBC (Bld) 0.6 % Normal . [facility] Comment on above: Performed By: #### E ODALIS, MG, CMP, CBC #### [address] Automated eosinophil countOr dered By: Samanta Castro on 01-25-2023 Eosinophils (Bld) [#/Vol] 0.0 10*3/uL Normal 0.0-0.45 [facility] Comment on above: Performed By: #### E ODALIS, MG, CMP, CBC #### [address] Automated erythrocytes count in urine sediment (number/area)Ordered By: Samanta Castro on 01-25-2023 RBC Auto (Urine sed) [#/Area] 0-1 [HPF] 0-4 [facility] Automated leukocytes count i n urine sediment (number/area)Ordered By: Samanta Castro on 01-25-2023 WBC Auto (Urine sed) [#/Area] 1-2 [HPF] 0-4 [facility] Automated monocyte %Ordered By: Samanta Castro on 01-25-2023 Monocytes/100 WBC (Bld) 10.2 % Normal . [facility] Comment on above: Performed By: #### E ODALIS, MG, CMP, CBC #### [facility] [address] Automated neutrophil %Ordere d By: Samanta Castro on 01-25-2023 Neutrophils/100 WBC (Bld) 52.7 % Normal . [facility] Comment on above: Performed By: #### E ODALIS, MG, CMP, CBC #### [facility] [address] Automated urine color determ inationOrdered By: Samanta Castro on 01-25-2023 Color (U) Dark yellow Critically abnormal Yellow [facility] Comment on above: Order Comment: Name Collection Type:: Clean-Voided Midstream Performed By: #### E ODALIS, MG, CMP, CBC #### [facility] [address] [place] [address] Barbiturates [Presence] in U rine by Screen methodOrdered By: Samanta Castro on 01-25-2023 Barbiturates Screen Ql (U) Positive Negative [facility] Benzodiazepines Screen Ql (U )Ordered By: Samanta Castro on 01-25-2023 Benzodiazepines Ql (U) Positive Negative [facility] Benzoylecgonine [Presence] i n Urine by Screen methodOrdered By: Samanta Castro on 01-25-2023 Benzoylecgonine Screen Ql (U) Positive Negative [facility] Bilirubin Test strip Ql (U)O rdered By: Samanta Castro on 01-25-2023 Bilirubin Ql (U) 2+ Negative [facility] Bilirubin.total [Mass/volume ] in Serum or PlasmaOrdered By: Samanta Castro on 01-25-2023 Bilirubin [Mass/Vol] 0.9 mg/dL Normal 0.3-1.0 [facility] Comment on above: Performed By: #### E ODALIS, MG, CMP, CBC #### [facility] [address] [place] [address] [place] Calcium [Mass/volume] in Ser um or PlasmaOrdered By: Samanta Castro on 01-25-2023 Calcium [Mass/Vol] 9.3 mg/dL Normal 8.6-10.3 [facility] Comment on above: Performed By: #### E ODALIS, MG, CMP, CBC #### [address] Cannabinoids [Presence] in U rine by Screen methodOrdered By: Samanta Castro on 01-25-2023 Cannabinoids Screen Ql (U) Negative Negative [facility] Comment on above: These are unconfirme d results and should not be used for legal purposes. Drug Cut-Off Concentration: AMPH 1000 ng/mL JANELL 200 ng/mL JAMES 200 ng/mL COCM 300 ng/mL OP 300 ng/mL PCP 25 ng/mL THC 20 ng/mL Carbon dioxide, total [Moles /volume] in Serum or PlasmaOrdered By: Samanta Castro on 01-25-2023 CO2 [Moles/Vol] 24.8 mmol/L Normal 21.0-31.0 [facility] Comment on above: Performed By: #### E ODALIS, MG, CMP, CBC #### [address] Chloride [Moles/volume] in S marbella or PlasmaOrdered By: Samanta Castro on 01-25-2023 Chloride [Moles/Vol] 102 mmol/L Normal 98-107 [facility] Comment on above: Performed By: #### E ODALIS, MG, CMP, CBC #### [facility] [address] [place] [address] Complete Blood Count Auto Di ffon 01-25-2023 Mean Corpuscular HGB Conc 34.9 g/dL Normal 32.0-35.0 [facility] Comment on above: Performed By: #### E ODALIS, MG, CMP, CBC #### [address] Monocytes/100 WBC (Bld) 19.94 % Normal 0.00-20.00 [facility] Comment on above: Performed By: #### E ODALIS, MG, CMP, CBC #### [address] [place] [address] [place] NRBC% 0.1 /100{WBC} Normal 0-0.5 [facility] Comment on above: Performed By: #### E ODALIS, MG, CMP, CBC #### [address] Comprehensive Metabolic Pane mary beth 01-25-2023 Albumin [Mass/Vol] 4.4 g/dL Normal 3.5-5.7 [facility] Comment on above: Performed By: #### E ODALIS, MG, CMP, CBC #### [address] Creatinine Clr Calc Pharmacy 102.16 Normal [facility] Comment on above: Performed By: #### E ODALIS, MG, CMP, CBC #### [address] GFR/1.73 sq M.predicted MDRD (S/P/Bld) [Vol rate/Area] mL/min/{1.73_m2} Normal [facility] Comment on above: Performed By: #### E ODALIS, MG, CMP, CBC #### [address] Creatinine [Mass/volume] in Serum or PlasmaOrdered By: Samanta Castro on 01-25-2023 Creatinine [Mass/Vol] 0.71 mg/dL Normal 0.60-1.20 [facility] Comment on above: Performed By: #### E ODALIS, MG, CMP, CBC #### [address] Dipstick and Microscopicon 1 03-28-2022 Appearance (U) Clear Normal Clear [facility] Comment on above: Order Comment: Name Collection Type:: Clean-Voided Midstream Performed By: #### E ODALIS, MG, CMP, CBC #### [address] Bacteria,Urine None Seen Normal None Seen [facility] Comment on above: Order Comment: Name Collection Type:: Clean-Voided Midstream Performed By: #### E ODALIS, MG, CMP, CBC #### [address] Bilirubin,Urine 2+ High Negative [facility] Comment on above: Order Comment: Name Collection Type:: Clean-Voided Midstream Performed By: #### E ODALIS, MG, CMP, CBC #### [address] Glucose Ql (U) Normal Normal Normal [facility] Comment on above: Order Comment: Name Collection Type:: Clean-Voided Midstream Performed By: #### E ODALIS, MG, CMP, CBC #### [place] [address] [place] Hyaline Casts,Urine 9-19 High 0-8 [facility] Comment on above: Order Comment: Name Collection Type:: Clean-Voided Midstream Performed By: #### E ODALIS, MG, CMP, CBC #### [address] Ketones Ql (U) Trace High Negative [facility] Comment on above: Order Comment: Name Collection Type:: Clean-Voided Midstream Performed By: #### E ODALIS, MG, CMP, CBC #### [address] Leukocyte esterase Test strip Ql (U) 1+ High Negative [facility] Comment on above: Order Comment: Name Collection Type:: Clean-Voided Midstream Performed By: #### E ODALIS, MG, CMP, CBC #### [place] [address] [place] Nitrite,Urine Positive High Negative [facility] Comment on above: Order Comment: Name Collection Type:: Clean-Voided Midstream Performed By: #### E ODALIS, MG, CMP, CBC #### [address] Occult Blood,Urine Negative Normal Negative [facility] Comment on above: Order Comment: Name Collection Type:: Clean-Voided Midstream Performed By: #### E ODALIS, MG, CMP, CBC #### [address] RBC LM.HPF (Urine sed) [#/Area] 0 /[HPF] Normal 0-4 [facility] Comment on above: Order Comment: Name Collection Type:: Clean-Voided Midstream Performed By: #### E ODALIS, MG, CMP, CBC #### [address] Specificy [place],Urine 1.042 High 1.001-1.030 [facility] Comment on above: Order Comment: Name Collection Type:: Clean-Voided Midstream Performed By: #### E ODALIS, MG, CMP, CBC #### [address] Squamous Epithelial Cell,Urine 3-4 High 0-2 [facility] Comment on above: Order Comment: Name Collection Type:: Clean-Voided Midstream Performed By: #### E ODALIS, MG, CMP, CBC #### [address] Urobilinogen,Urine Normal Normal Normal [facility] Comment on above: Order Comment: Name Collection Type:: Clean-Voided Midstream Performed By: #### E ODALIS, MG, CMP, CBC #### [address] WBC,Urine 1-2 Normal 0-4 [facility] Comment on above: Order Comment: Name Collection Type:: Clean-Voided Midstream Performed By: #### E ODALIS, MG, CMP, CBC #### [address] Drug Screen,Urineon 12-15-20 23 Amphetamine Screen,Urine Positive High Negative [facility] Comment on above: Performed By: #### E ODALIS, MG, CMP, CBC #### [address] Barbiturate Screen,Urine Positive High Negative [facility] Comment on above: Performed By: #### E ODALIS, MG, CMP, CBC #### [address] Benzodiazepines Screen,Urine Positive High Negative [facility] Comment on above: Performed By: #### E ODALIS, MG, CMP, CBC #### [address] Cannabinoid Screen,Urine Negative Normal Negative [facility] Comment on above: Result Comment: Thes e are unconfirmed results and should not be used for legal purposes. Drug Cut-Off Concentration: AMPH 1000 ng/mL JANELL 200 ng/mL JAMES 200 ng/mL COCM 300 ng/mL OP 300 ng/mL PCP 25 ng/mL THC 20 ng/mL PERFORMED BY: [place] [address] PATHOLOGIST HEADING REPAIRER LEE CARDOSO M.D. Performed By: #### E ODALIS, MG, CMP, CBC #### [address] Cocaine Screen,Urine Positive High Negative [facility] Comment on above: Performed By: #### E ODALIS, MG, CMP, CBC #### [address] Opiate Screen,Urine Negative Normal Negative [facility] Comment on above: Performed By: #### E ODALIS, MG, CMP, CBC #### [address] Phencyclidine Screen,Urine Negative Normal Negative [facility] Comment on above: Performed By: #### E ODALIS, MG, CMP, CBC #### [address] ECG 12 lead ECGon 01-25-2023 ECG 12 lead ECG [facility] [place] [address] [place] [address] Electrocardiograph Report Signed Patient: Lyle Bailey MR#: [id number] : 1990 Acct:[id number] Age/Sex: 33 / F ADM Date: 01/25/23 Loc: ER Room: Type: [facility] ER Attending Dr: Ordering Provider: Samanta Castro [...] was found Confirmed by SAMANTA CASTRO MD ([id number]) on 01/25/2023 3:59:06 AM Referred By: Electronically Signed By:SAMANTA CASTRO MD Transcribed By: MUS Signed By Samanta Castro Jr, [place] 0359 Normal [facility] Erythrocyte distribution wid th [Ratio] by Automated countOrdered By: Samanta Castro on 01-25-2023 Erythrocyte distribution width (RBC) [Ratio] 13.1 % Normal 11.9-15.3 [facility] Comment on above: Performed By: #### E ODALIS, MG, CMP, CBC #### [facility] [address] [place] [address] Erythrocytes [#/volume] in B lood by Automated countOrdered By: Samanta Castro on 01-25-2023 RBC (Bld) [#/Vol] 3.88 10*6/uL Normal 3.60-5.[address] [facility] Comment on above: Performed By: #### E ODALIS, MG, CMP, CBC #### [facility] [address] [place] [id number] [facility] Ethanol [Mass/volume] in Ser um or PlasmaOrdered By: Samanta Castro on 01-25-2023 Ethanol [Mass/Vol] mg/dL Normal [facility] Comment on above: Performed By: #### E ODALIS, MG, CMP, CBC #### [facility] [address] [place] [id number] [facility] Ethanol [Mass/Vol] TNP [facility] Comment on above: Test not performed Ethyl Alcohol Profileon 01-11 Percent Ethanol Not performed Normal [facility] Comment on above: Result Comment: PERF ORMED BY: [place] [address] PATHOLOGIST HEADING REPAIRER LEE CARDOSO M.D. Performed By: #### E ODALIS, MG, CMP, CBC #### [place] [address] [place] Glucose [Mass/volume] in Ser um or PlasmaOrdered By: Samanta Castro on 01-25-2023 Glucose [Mass/Vol] 88 mg/dL Normal 70-100 [facility] Comment on above: ADA recommended refe rence rangeRandom Glucose Reference Range is dependent on time and content of last meal. Glucose of more than 200 mg/dL in a nonstressed, ambulatory subject supports the diagnosis of Diabetes Mellitus. Result Comment: [place] om Glucose Reference Range is dependent on time and content of last meal. Glucose of more than 200 mg/dL in a nonstressed, ambulatory subject supports the diagnosis of Diabetes Mellitus. ADA recommended reference range Performed By: #### E ODALIS, MG, CMP, CBC #### [address] HCG ( test) IA.rapi d Ql (U)Ordered By: Samanta Castro on 01-25-2023 HCG ( test) Ql (U) Negative [facility] HCG,Urineon 01-25-2023 Beta HCG ( test) Ql (U) Negative Normal [facility] Comment on above: Order Comment: Name Collection Type:: Clean-Voided Midstream Result Comment: PERF ORMED BY: [place] [address] PATHOLOGIST HEADING REPAIRER LEE CARDOSO M.D. Performed By: #### E ODALIS, MG, CMP, CBC #### [facility] [address] [place], [place] [id number] [facility] Hematocrit [Volume Fraction] of Blood by Automated countOrdered By: Samanta Castro on 01-25-2023 Hematocrit (Bld) [Volume fraction] 38.3 % Normal 34.0-46.4 [facility] Comment on above: Performed By: #### E ODALIS, MG, CMP, CBC #### [address] [place] [address] [place] Hemoglobin [Mass/volume] in BloodOrdered By: Samanta Castro on 01-25-2023 Hemoglobin (Bld) [Mass/Vol] 13.4 g/dL Normal 11.8-15.4 [facility] Comment on above: Performed By: #### E ODALIS, MG, CMP, CBC #### [facility] [address] Ketones Auto test strip (U) [Mass/Vol]Ordered By: Samanta Castro on 01-25-2023 Ketones (U) [Mass/Vol] Trace Negative [facility] Laboratory - UrinalysisOrder ed By: Samanta Castro on 01-25-2023 Hyaline casts LM Ql (Urine sed) 919 [LPF] 0-8 [facility] Leukocytes [#/volume] correc jose for nucleated erythrocytes in Blood by Automated counOrdered By: Samanta Castro on 01-25-2023 WBC corrected for nucl RBC Auto (Bld) [#/Vol] 7.4 10*3/uL 3.8-11.6 [facility] Leukocytes [#/volume] in Blo od by Automated countOrdered By: Samanta Castro on 01-25-2023 WBC (Bld) [#/Vol] 7.4 10*3/uL Normal 3.8-11.6 [facility] Comment on above: Performed By: #### E ODALIS, MG, CMP, CBC #### [facility] [address] [place] [address] [place] Lymphocytes [#/volume] in Bl ood by Automated countOrdered By: Samanta Castro on 01-25-2023 Lymphocytes (Bld) [#/Vol] 2.7 10*3/uL Normal 1.00-4.8 [facility] Comment on above: Performed By: #### E ODALIS, MG, CMP, CBC #### [facility] [address] [place] [address] [place] Lymphocytes/100 leukocytes i n Blood by Automated countOrdered By: Samanta Castro on 01-25-2023 Lymphocytes/100 WBC (Bld) 35.8 % Normal . [facility] Comment on above: Performed By: #### E ODALIS, MG, CMP, CBC #### [facility] [address] [place] [address] MCH [Entitic mass] by Automa jose countOrdered By: Samanta Castro on 01-25-2023 MCH (RBC) [Entitic mass] 34.4 pg High 24.7-34.3 [facility] Comment on above: Performed By: #### E ODALIS, MG, CMP, CBC #### [facility] [address] [place] [address] MCHC Auto (RBC) [Mass/Vol]Or dered By: Samanta Castro on 01-25-2023 MCHC (RBC) [Mass/Vol] 34.9 g/dL 32.0-35.0 [facility] MCV [Entitic volume] by Auto mated countOrdered By: Samanta Castro on 01-25-2023 MCV (RBC) [Entitic vol] 98.7 fL Normal 80-100 [facility] Comment on above: Performed By: #### E ODALIS, MG, CMP, CBC #### [facility] [address] [place] [address] Magnesium [Mass/volume] in S amrbella or PlasmaOrdered By: Samanta Castro on 01-25-2023 Magnesium [Mass/Vol] 1.9 mg/dL Normal 1.9-2.7 [facility] Comment on above: Result Comment: PERF ORMED BY: [address] [place] [address] PATHOLOGIST HEADING REPAIRER LEE CARDOSO M.D. Performed By: #### E ODALIS, MG, CMP, CBC #### [facility] [address] [place] [address] Monocyte distribution width [Entitic volume] in Blood by AutomatedOrdered By: Samanta Castro on 01-25-2023 Monocyte distribution width Auto (Bld) [Entitic vol] 19.94 % 0.00-20.00 [facility] Neutrophils [#/volume] in Bl ood by Automated countOrdered By: Samanta Castro on 01-25-2023 Neutrophils (Bld) [#/Vol] 3.9 10*3/uL Normal 1.8-7.7 [facility] Comment on above: Performed By: #### E ODALIS, MG, CMP, CBC #### [facility] [address] Nitrite Test strip Ql (U)Ord ered By: Samanta Castro on 01-25-2023 Nitrite Ql (U) Positive Negative [facility] No Panel InformationOrdered By: Samanta Castro on 01-25-2023 Estimated GFR (CKD-EPI) > 60.0 mL/Min [facility] Creatinine Clearance (Chem 102.16 [facility] Nucleated erythrocytes [Pres ence] in Blood by Automated countOrdered By: Samanta Castro on 01-25-2023 Nucleated RBC Auto Ql (Bld) 0.1 /100{WBC} 0-0.5 [facility] Opiates [Presence] in Urine by Screen methodOrdered By: Samanta Castro on 01-25-2023 Opiates Screen Ql (U) Negative Negative [facility] Phencyclidine Screen Ql (U)O rdered By: Samanta Castro on 01-25-2023 Phencyclidine Ql (U) Negative Negative [facility] Platelet mean volume [Entiti c volume] in Blood by Automated countOrdered By: Samanta Castro on 01-25-2023 Platelet mean volume (Bld) [Entitic vol] 9.1 fL Normal 6.3-10.7 [facility] Comment on above: Performed By: #### E ODALIS, MG, CMP, CBC #### [facility] [address] [place] [address] [place] Platelets [#/volume] in Bloo d by Automated countOrdered By: Samanta Castro on 01-25-2023 Platelets (Bld) [#/Vol] 124 10*3/uL Low 150-450 [facility] Comment on above: Performed By: #### E ODALIS, MG, CMP, CBC #### [facility] [address] [place] [address] Potassium [Moles/volume] in Serum or PlasmaOrdered By: Samanta Castro on 01-25-2023 Potassium [Moles/Vol] 3.4 mmol/L Low 3.5-5.1 [facility] Comment on above: Performed By: #### E ODALIS, MG, CMP, CBC #### [address] Protein [Mass/volume] in Ser um or PlasmaOrdered By: Samanta Castro on 01-25-2023 Protein [Mass/Vol] 7.8 g/dL Normal 6.4-8.9 [facility] Comment on above: Performed By: #### E ODALIS, MG, CMP, CBC #### [address] Quick Strepon 01-25-2023 Quick Strep Streptococcus pyogen es Ag [Presence] in Throat by Rapid immunoassay Negative for Group A Strep Antigen Note 1 NOTE 2 Results are those of a screening test. NOTE 3 If clinically indicated please order a culture. NOTE 4 NOTE 5 Reference range = Negative PERFORMED BY: [place] [address] PATHOLOGIST HEADING REPAIRER LEE CARDOSO M.D. Normal [facility] Comment on above: Performed By: #### C MP, LIPASE, CBC #### [address] Serum globulin measurement b y calculation (mass/volume)Ordered By: Samanta Castro on 01-25-2023 Globulin (S) [Mass/Vol] 3.4 g/dL [facility] Comment on above: Performed By: #### E ODALIS, MG, CMP, CBC #### [address] Serum or plasma albumin/glob ulin mass ratioOrdered By: Samanta Castro on 01-25-2023 Albumin/Globulin [Mass ratio] 1.3 {ratio} [facility] Comment on above: Performed By: #### E ODALIS, MG, CMP, CBC #### [facility] [address] Serum or plasma anion gap de terminationOrdered By: Samanta Castro on 01-25-2023 Anion gap [Moles/Vol] 12.6 mmol/L Normal 6.0-15.0 [facility] Comment on above: Performed By: #### E ODALIS, MG, CMP, CBC #### [facility] [address] [place] [address] Sodium [Moles/volume] in Ser um or PlasmaOrdered By: Samanta Castro on 01-25-2023 Sodium [Moles/Vol] 136 mmol/L Normal 136-145 [facility] Comment on above: Performed By: #### E ODALIS, MG, CMP, CBC #### [address] Specific gravity Auto test s trip (U) [Rel density]Ordered By: Samanta Castro on 01-25-2023 Specific gravity (U) [Rel density] 1.042 1.001-1.030 [facility] Squamous epithelial cells de tection in urine sediment by light microscopyOrdered By: Samanta Castro on 01-25-2023 Epithelial cells.squamous LM Ql (Urine sed) 3-4 [HPF] 0-2 [facility] Streptococcus pyogenes antig en detectionOrdered By: Samanta Castro on 01-25-2023 S. pyogenes Ag Ql (Unsp spec) [facility] Urea nitrogen [Mass/volume] in Serum or PlasmaOrdered By: Samanta Castro on 01-25-2023 Urea nitrogen [Mass/Vol] 13 mg/dL Normal 7-25 [facility] Comment on above: Performed By: #### E ODALIS, MG, CMP, CBC #### [facility] [address] [place] [address] Urine Cultureon 01-25-2023 Bacteria identified Cx Nom (U) ORGANISM: Strep agalactiae - (group b) (O:STRAGA) [place] Count 15,000 PERFORMED BY: [place] [address] PATHOLOGIST HEADING REPAIRER LEE CARDOSO M.D. Normal [facility] Comment on above: Performed By: #### E ODALIS, MG, CMP, CBC #### [facility] [address] Urine bacteria detection by automated methodOrdered By: Samanta Castro on 01-25-2023 Bacteria Auto Ql (U) None seen None Seen [facility] Urine clarity by refractomet ry automatedOrdered By: Samanta Castro on 01-25-2023 Clarity Refractometry automated (U) Clear Clear [facility] Urine culture routineOrdered By: Samanta Castro on 01-25-2023 Bacteria identified Cx Nom (U) Strep agalactiae - (group b) [facility] Urine glucose measurement by automated test strip (mass/volume)Ordered By: Samanta Castro on 01-25-2023 Glucose Auto test strip (U) [Mass/Vol] Normal mg/dL Normal [facility] Urine hemoglobin detection b y automated test stripOrdered By: Samanta Castro on 01-25-2023 Hemoglobin Auto test strip Ql (U) Negative Negative [facility] Urine leukocyte esterase det ection by automated test stripOrdered By: Samanta Castro on 01-25-2023 Leukocyte esterase Auto test strip Ql (U) 1+ Negative [facility] Urine pH measurement by auto mated test stripOrdered By: Samanta Castro on 01-25-2023 pH (U) 5.5 [pH] Normal 5.0-9.0 [facility] Comment on above: Order Comment: Name Collection Type:: Clean-Voided Midstream Performed By: #### E ODALIS, MG, CMP, CBC #### [facility] [address] [place] [address] [place] Urine protein measurement by automated test strip (mass/volume)Ordered By: Samanta Castro on 01-25-2023 Protein (U) [Mass/Vol] 30 mg/dL High Negative [facility] Comment on above: Order Comment: Name Collection Type:: Clean-Voided Midstream Performed By: #### E ODALIS, MG, CMP, CBC #### [facility] [address] [place] [address] Urobilinogen Auto test strip (U) [Mass/Vol]Ordered By: Samanta Castro on 01-25-2023 Urobilinogen (U) [Mass/Vol] Normal mg/dL Normal [facility] ED Note-Physicianon 01-22-20 ED Note-Physician [id number] F Normal [facility] Alanine aminotransferase [En zymatic activity/volume] in Serum or PlasmaOrdered By: Pavel Yao on 01-19-2023 ALT [Catalytic activity/Vol] 142 U/L High 7-52 [facility] Comment on above: Performed By: #### C MP, LIPASE, CBC #### [facility] [address] [place] [address] Albumin [Mass/volume] in Ser um or Plasma by Bromocresol green (BCG) dye binding methoOrdered By: Pavel Yao on 01-19-2023 Albumin BCG dye [Mass/Vol] 4.4 g/dL 3.5-5.7 [facility] Alkaline phosphatase [Enzyma tic activity/volume] in Serum or PlasmaOrdered By: Pavel Yao on 01-19-2023 ALP [Catalytic activity/Vol] 87 U/L Normal 34-104 [facility] Comment on above: Performed By: #### C MP, LIPASE, CBC #### [facility] [address] [place] [address] Aspartate aminotransferase [ Enzymatic activity/volume] in Serum or PlasmaOrdered By: Pavel Yao on 01-19-2023 AST [Catalytic activity/Vol] 220 U/L High 13-39 [facility] Comment on above: Performed By: #### C MP, LIPASE, CBC #### [facility] [address] [place] [address] [place] Automated basophil %Ordered By: Pavel Yao on 01-19-2023 Basophils/100 WBC (Bld) 1.0 % Normal . [facility] Comment on above: Performed By: #### C MP, LIPASE, CBC #### [facility] [address] [place] [address] [place] Automated basophil countOrde red By: Pavel Yao on 01-19-2023 Basophils (Bld) [#/Vol] 0.1 10*3/uL Normal 0.0-0.2 [facility] Comment on above: Result Comment: PERF ORMED BY: [place] [address] PATHOLOGIST HEADING REPAIRER LEE CARDOSO M.D. Performed By: #### C MP, LIPASE, CBC #### [address] Automated blood monocyte cou ntOrdered By: Pavel Yao on 01-19-2023 Monocytes (Bld) [#/Vol] 0.3 10*3/uL Normal 0.0-0.8 [facility] Comment on above: Performed By: #### C MP, LIPASE, CBC #### [address] Automated eosinophil %Ordere d By: Pavel Yao on 01-19-2023 Eosinophils/100 WBC (Bld) 0.9 % Normal . [facility] Comment on above: Performed By: #### C MP, LIPASE, CBC #### [address] Automated eosinophil countOr dered By: Pavel Yao on 01-19-2023 Eosinophils (Bld) [#/Vol] 0.1 10*3/uL Normal 0.0-0.45 [facility] Comment on above: Performed By: #### C MP, LIPASE, CBC #### [address] Automated erythrocytes count in urine sediment (number/area)Ordered By: Pavel Yao on 01-19-2023 RBC Auto (Urine sed) [#/Area] 0-1 [HPF] 0-4 [facility] Automated leukocytes count i n urine sediment (number/area)Ordered By: Pavel Yao on 01-19-2023 WBC Auto (Urine sed) [#/Area] 0-1 [HPF] 0-4 [facility] Automated monocyte %Ordered By: Pavel Yao on 01-19-2023 Monocytes/100 WBC (Bld) 5.2 % Normal . [facility] Comment on above: Performed By: #### C MP, LIPASE, CBC #### [address] [place] [address] [place] Automated neutrophil %Ordere d By: Pavel Yao on 01-19-2023 Neutrophils/100 WBC (Bld) 53.1 % Normal . [facility] Comment on above: Performed By: #### C MP, LIPASE, CBC #### [address] Automated urine color determ inationOrdered By: Pavel Yao on 01-19-2023 Color (U) Yellow Normal Yellow [facility] Comment on above: Order Comment: Name Collection Type:: Clean-Voided Midstream Performed By: #### C MP, LIPASE, CBC #### [address] Bilirubin Test strip Ql (U)O rdered By: Pvael Yao on 01-19-2023 Bilirubin Ql (U) Negative Negative [facility] Bilirubin.total [Mass/volume ] in Serum or PlasmaOrdered By: Pavel Yao on 01-19-2023 Bilirubin [Mass/Vol] 0.6 mg/dL Normal 0.3-1.0 [facility] Comment on above: Performed By: #### C MP, LIPASE, CBC #### [address] Calcium [Mass/volume] in Ser um or PlasmaOrdered By: Pavel Yao on 01-19-2023 Calcium [Mass/Vol] 8.9 mg/dL Normal 8.6-10.3 [facility] Comment on above: Performed By: #### C MP, LIPASE, CBC #### [address] Carbon dioxide, total [Moles /volume] in Serum or PlasmaOrdered By: Pavel Yao on 01-19-2023 CO2 [Moles/Vol] 23.2 mmol/L Normal 21.0-31.0 [facility] Comment on above: Performed By: #### C MP, LIPASE, CBC #### [place] [address] [place] Chloride [Moles/volume] in S marbella or PlasmaOrdered By: Pavel Yao on 01-19-2023 Chloride [Moles/Vol] 102 mmol/L Normal 98-107 [facility] Comment on above: Performed By: #### C MP, LIPASE, CBC #### [address] Complete Blood Count Auto Di ffon 01-19-2023 Mean Corpuscular HGB Conc 35.0 g/dL Normal 32.0-35.0 [facility] Comment on above: Performed By: #### C MP, LIPASE, CBC #### [address] Monocytes/100 WBC (Bld) 14.57 % Normal 0.00-20.00 [facility] Comment on above: Performed By: #### C MP, LIPASE, CBC #### [address] NRBC% 0.2 /100{WBC} Normal 0-0.5 [facility] Comment on above: Performed By: #### C MP, LIPASE, CBC #### [address] Comprehensive Metabolic Pane mary beth 01-19-2023 Albumin [Mass/Vol] 4.4 g/dL Normal 3.5-5.7 [facility] Comment on above: Performed By: #### C MP, LIPASE, CBC #### [address] Creatinine Clr Calc Pharmacy 128.34 Normal [facility] Comment on above: Performed By: #### C MP, LIPASE, CBC #### [address] GFR/1.73 sq M.predicted MDRD (S/P/Bld) [Vol rate/Area] mL/min/{1.73_m2} Normal [facility] Comment on above: Performed By: #### C MP, LIPASE, CBC #### [address] Creatinine [Mass/volume] in Serum or PlasmaOrdered By: Pavel Yao on 01-19-2023 Creatinine [Mass/Vol] 0.60 mg/dL Normal 0.60-1.20 [facility] Comment on above: Performed By: #### C MP, LIPASE, CBC #### [facility] [address] [place] [address] [place] Dipstick and Microscopicon 1 03-22-2022 Appearance (U) Clear Normal Clear [facility] Comment on above: Order Comment: Name Collection Type:: Clean-Voided Midstream Performed By: #### C MP, LIPASE, CBC #### [place] [address] [place] Bacteria,Urine 1+ High None Seen [facility] Comment on above: Order Comment: Name Collection Type:: Clean-Voided Midstream Performed By: #### C MP, LIPASE, CBC #### [address] Bilirubin,Urine Negative Normal Negative [facility] Comment on above: Order Comment: Name Collection Type:: Clean-Voided Midstream Performed By: #### C MP, LIPASE, CBC #### [address] Glucose Ql (U) Normal Normal Normal [facility] Comment on above: Order Comment: Name Collection Type:: Clean-Voided Midstream Performed By: #### C MP, LIPASE, CBC #### [place] [address] [place] Hyaline Casts,Urine 0-8 Normal 0-8 [facility] Comment on above: Order Comment: Name Collection Type:: Clean-Voided Midstream Performed By: #### C MP, LIPASE, CBC #### [place] [address] [place] Ketones Ql (U) Negative Normal Negative [facility] Comment on above: Order Comment: Name Collection Type:: Clean-Voided Midstream Performed By: #### C MP, LIPASE, CBC #### [address] Leukocyte esterase Test strip Ql (U) Negative Normal Negative [facility] Comment on above: Order Comment: Name Collection Type:: Clean-Voided Midstream Performed By: #### C MP, LIPASE, CBC #### [place] [address] [place] Nitrite,Urine Negative Normal Negative [facility] Comment on above: Order Comment: Name Collection Type:: Clean-Voided Midstream Performed By: #### C MP, LIPASE, CBC #### [place] [address] [place] Occult Blood,Urine Negative Normal Negative [facility] Comment on above: Order Comment: Name Collection Type:: Clean-Voided Midstream Performed By: #### C MP, LIPASE, CBC #### [place] [address] [place] Protein,Urine Trace High Negative [facility] Comment on above: Order Comment: Name Collection Type:: Clean-Voided Midstream Performed By: #### C MP, LIPASE, CBC #### [place] [address] [place] RBC LM.HPF (Urine sed) [#/Area] 0 /[HPF] Normal 0-4 [facility] Comment on above: Order Comment: Name Collection Type:: Clean-Voided Midstream Performed By: #### C MP, LIPASE, CBC #### [address] Specificy [place],Urine 1.025 Normal 1.001-1.030 [facility] Comment on above: Order Comment: Name Collection Type:: Clean-Voided Midstream Performed By: #### C MP, LIPASE, CBC #### [place] [address] [place] Squamous Epithelial Cell,Urine 1-2 Normal 0-2 [facility] Comment on above: Order Comment: Name Collection Type:: Clean-Voided Midstream Performed By: #### C MP, LIPASE, CBC #### [address] Urobilinogen,Urine Normal Normal Normal [facility] Comment on above: Order Comment: Name Collection Type:: Clean-Voided Midstream Performed By: #### C MP, LIPASE, CBC #### [facility] [address] WBC LM.HPF (Urine sed) [#/Area] 0 /[HPF] Normal 0-4 [facility] Comment on above: Order Comment: Name Collection Type:: Clean-Voided Midstream Performed By: #### C MP, LIPASE, CBC #### [facility] [address] ECG 12 lead ECGon 01-19-2023 ECG 12 lead ECG [facility] [place] [address] [place] [address] Electrocardiograph Report Signed Patient: Lyle Bailey MR#: [id number] : 1990 Acct:[id number] Age/Sex: 33 / F ADM Date: 01/19/23 Loc: ER Room: Type: [facility] ER Attending Dr: Ordering Provider: Pavel Yao [...] Rightward axis Confirmed by Pavel YAO DO ([id number]) on 01/19/2023 12:17:21 PM Referred By: Electronically Signed By:Pavel YAO DO Transcribed By: MUS Signed By Pavel Yao DO 1 03/22/22 1217 Normal [facility] Erythrocyte distribution wid th [Ratio] by Automated countOrdered By: Pavel Yao on 01-19-2023 Erythrocyte distribution width (RBC) [Ratio] 13.2 % Normal 11.9-15.3 [facility] [place] Comment on above: Performed By: #### C MP, LIPASE, CBC #### [address] Erythrocytes [#/volume] in B lood by Automated countOrdered By: Pavel Yao on 01-19-2023 RBC (Bld) [#/Vol] 4.13 10*6/uL Normal 3.60-5.[address] [facility] Comment on above: Performed By: #### C MP, LIPASE, CBC #### [address] Glucose [Mass/volume] in Ser um or PlasmaOrdered By: Pavel Yao on 01-19-2023 Glucose [Mass/Vol] 82 mg/dL Normal 70-100 [facility] Comment on above: ADA recommended refe rence rangeRandom Glucose Reference Range is dependent on time and content of last meal. Glucose of more than 200 mg/dL in a nonstressed, ambulatory subject supports the diagnosis of Diabetes Mellitus. Result Comment: [place] om Glucose Reference Range is dependent on time and content of last meal. Glucose of more than 200 mg/dL in a nonstressed, ambulatory subject supports the diagnosis of Diabetes Mellitus. ADA recommended reference range Performed By: #### C MP, LIPASE, CBC #### [place] [address] [place] HCG ( test) IA.rapi d Ql (U)Ordered By: Pavel Yao on 01-19-2023 HCG ( test) Ql (U) Negative [facility] HCG,Urineon 01-19-2023 Beta HCG ( test) Ql (U) Negative Normal [facility] Comment on above: Order Comment: Name Collection Type:: Clean-Voided Midstream Result Comment: PERF ORMED BY: [place] [address] PATHOLOGIST HEADING REPAIRER LEE CARDOSO M.D. Performed By: #### C MP, LIPASE, CBC #### [address] Hematocrit [Volume Fraction] of Blood by Automated countOrdered By: Pavel Yao on 01-19-2023 Hematocrit (Bld) [Volume fraction] 40.5 % Normal 34.0-46.4 [facility] Comment on above: Performed By: #### C MP, LIPASE, CBC #### [place] [address] [place] Hemoglobin [Mass/volume] in BloodOrdered By: Pavel Yao on 01-19-2023 Hemoglobin (Bld) [Mass/Vol] 14.2 g/dL Normal 11.8-15.4 [facility] Comment on above: Performed By: #### C MP, LIPASE, CBC #### [facility] [address] [place] [address] Ketones Auto test strip (U) [Mass/Vol]Ordered By: Pavel Yao on 01-19-2023 Ketones (U) [Mass/Vol] Negative Negative [facility] Laboratory - UrinalysisOrder ed By: Pavel Yao on 01-19-2023 Hyaline casts LM Ql (Urine sed) 0-8 [LPF] 0-8 [facility] Leukocytes [#/volume] correc jose for nucleated erythrocytes in Blood by Automated counOrdered By: Pavel Yao on 01-19-2023 WBC corrected for nucl RBC Auto (Bld) [#/Vol] 6.2 10*3/uL 3.8-11.6 [facility] Leukocytes [#/volume] in Blo od by Automated countOrdered By: Pavel Yao on 01-19-2023 WBC (Bld) [#/Vol] 6.2 10*3/uL Normal 3.8-11.6 [facility] Comment on above: Performed By: #### C MP, LIPASE, CBC #### [facility] [address] [place] [address] Lipase [Enzymatic activity/v olume] in Serum or PlasmaOrdered By: Pavel Yao on 01-19-2023 Lipase [Catalytic activity/Vol] 53.0 U/L Normal 11.0-82.0 [facility] Comment on above: Result Comment: PERF ORMED BY: [place] [address] PATHOLOGIST HEADING REPAIRER LEE CARDOSO M.D. Performed By: #### C MP, LIPASE, CBC #### [facility] [address] [place] [address] Lymphocytes [#/volume] in Bl ood by Automated countOrdered By: Pavel Yao on 01-19-2023 Lymphocytes (Bld) [#/Vol] 2.4 10*3/uL Normal 1.00-4.8 [facility] Comment on above: Performed By: #### C MP, LIPASE, CBC #### [address] Lymphocytes/100 leukocytes i n Blood by Automated countOrdered By: Pavel Yao on 01-19-2023 Lymphocytes/100 WBC (Bld) 39.8 % Normal . [facility] Comment on above: Performed By: #### C MP, LIPASE, CBC #### [address] MCH [Entitic mass] by Automa jose countOrdered By: Pavel Yao on 01-19-2023 MCH (RBC) [Entitic mass] 34.3 pg Normal 24.7-34.3 [facility] Comment on above: Performed By: #### C MP, LIPASE, CBC #### [address] MCHC Auto (RBC) [Mass/Vol]Or dered By: Pavel Yao on 01-19-2023 MCHC (RBC) [Mass/Vol] 35.0 g/dL 32.0-35.0 [facility] MCV [Entitic volume] by Auto mated countOrdered By: Pavel Yao on 01-19-2023 MCV (RBC) [Entitic vol] 97.9 fL Normal 80-100 [facility] Comment on above: Performed By: #### C MP, LIPASE, CBC #### [address] Monocyte distribution width [Entitic volume] in Blood by AutomatedOrdered By: Pavel Yao on 01-19-2023 Monocyte distribution width Auto (Bld) [Entitic vol] 14.57 % 0.00-20.00 [facility] Neutrophils [#/volume] in Bl ood by Automated countOrdered By: Pavel Yao on 01-19-2023 Neutrophils (Bld) [#/Vol] 3.3 10*3/uL Normal 1.8-7.7 [facility] Comment on above: Performed By: #### C MP, LIPASE, CBC #### [address] Nitrite Test strip Ql (U)Ord ered By: Pavel Yao on 01-19-2023 Nitrite Ql (U) Negative Negative [facility] No Panel InformationOrdered By: Pavel Yao on 01-19-2023 Estimated GFR (CKD-EPI) > 60.0 mL/Min [facility] Creatinine Clearance (Chem 128.34 [facility] Nucleated erythrocytes [Pres ence] in Blood by Automated countOrdered By: Pavel Yao on 01-19-2023 Nucleated RBC Auto Ql (Bld) 0.2 /100{WBC} 0-0.5 [facility] Platelet mean volume [Entiti c volume] in Blood by Automated countOrdered By: Pavel Yao on 01-19-2023 Platelet mean volume (Bld) [Entitic vol] 7.6 fL Normal 6.3-10.7 [facility] Comment on above: Performed By: #### C MP, LIPASE, CBC #### [address] Platelets [#/volume] in Bloo d by Automated countOrdered By: Pavel Yao on 01-19-2023 Platelets (Bld) [#/Vol] 183 10*3/uL Normal 150-450 [facility] Comment on above: Performed By: #### C MP, LIPASE, CBC #### [address] Potassium [Moles/volume] in Serum or PlasmaOrdered By: Pavel Yao on 01-19-2023 Potassium [Moles/Vol] 3.8 mmol/L Normal 3.5-5.1 [facility] Comment on above: Performed By: #### C MP, LIPASE, CBC #### [address] Protein Auto test strip (U) [Mass/Vol]Ordered By: Pavel Yao on 01-19-2023 Protein (U) [Mass/Vol] Trace mg/dL Negative [facility] Protein [Mass/volume] in Ser um or PlasmaOrdered By: Pavel Yao on 01-19-2023 Protein [Mass/Vol] 8.1 g/dL Normal 6.4-8.9 [facility] Comment on above: Performed By: #### C MP, LIPASE, CBC #### [address] Serum globulin measurement b y calculation (mass/volume)Ordered By: Pavel Yao on 01-19-2023 Globulin (S) [Mass/Vol] 3.7 g/dL [facility] Comment on above: Performed By: #### C MP, LIPASE, CBC #### [address] Serum or plasma albumin/glob ulin mass ratioOrdered By: Pavel Yao on 01-19-2023 Albumin/Globulin [Mass ratio] 1.2 {ratio} [facility] Comment on above: Performed By: #### C MP, LIPASE, CBC #### [address] Serum or plasma anion gap de terminationOrdered By: Pavel Yao on 01-19-2023 Anion gap [Moles/Vol] 15.6 mmol/L High 6.0-15.0 [facility] Comment on above: Performed By: #### C MP, LIPASE, CBC #### [address] Sodium [Moles/volume] in Ser um or PlasmaOrdered By: Pavel Yao on 01-19-2023 Sodium [Moles/Vol] 137 mmol/L Normal 136-145 [facility] Comment on above: Performed By: #### C MP, LIPASE, CBC #### [address] Specific gravity Auto test s trip (U) [Rel density]Ordered By: Pavel Yao on 01-19-2023 Specific gravity (U) [Rel density] 1.025 1.001-1.030 [facility] Squamous epithelial cells de tection in urine sediment by light microscopyOrdered By: Pavel Yao on 01-19-2023 Epithelial cells.squamous LM Ql (Urine sed) 1-2 [HPF] 0-2 [facility] Urea nitrogen [Mass/volume] in Serum or PlasmaOrdered By: Pavel Yao on 01-19-2023 Urea nitrogen [Mass/Vol] 13 mg/dL Normal 7-25 [facility] Comment on above: Performed By: #### C MP, LIPASE, CBC #### [facility] [address] Urine bacteria detection by automated methodOrdered By: Pavel Yao on 01-19-2023 Bacteria Auto Ql (U) 1+ None Seen [facility] Urine clarity by refractomet ry automatedOrdered By: Pavel Yao on 01-19-2023 Clarity Refractometry automated (U) Clear Clear [facility] Urine glucose measurement by automated test strip (mass/volume)Ordered By: Pavel Yao on 01-19-2023 Glucose Auto test strip (U) [Mass/Vol] Normal mg/dL Normal [facility] Urine hemoglobin detection b y automated test stripOrdered By: Pavel Yao on 01-19-2023 Hemoglobin Auto test strip Ql (U) Negative Negative [facility] Urine leukocyte esterase det ection by automated test stripOrdered By: Pavel Yao on 01-19-2023 Leukocyte esterase Auto test strip Ql (U) Negative Negative [facility] Urine pH measurement by auto mated test stripOrdered By: Pavel Yao on 01-19-2023 pH (U) 6.5 [pH] Normal 5.0-9.0 [facility] Comment on above: Order Comment: Name Collection Type:: Clean-Voided Midstream Performed By: #### C MP, LIPASE, CBC #### [facility] [address] [place] [address] Urobilinogen Auto test strip (U) [Mass/Vol]Ordered By: Pavel Yao on 01-19-2023 Urobilinogen (U) [Mass/Vol] Normal mg/dL Normal [facility] Neurology Forms- [employer] [facility] Forms- Text [id number]#1.00TIF F Normal [facility] EEGon 01-12-2023 EEG Normal [facility] Comment on above: Result Comment: Elec tronically Signed By: Francisco Cruz MD\.br\Date and Time Signed: 01/12/23 08:10 EST Discharge Instructionson Discharge Instructions [id number]#1.00TI [facility] Insurance Correspondence Off ice01-08-2023 Insurance Correspondence Office [id number]#1.00T IFF [facility] Progress Note-Nurseon 2022 Progress Note-Nurse [id number]#1.00TI [facility] Consent for Treatmenton 12-13 Consent for Treatment [id number]#1.00TI [facility] Discharge Instructionson Discharge Instructions [id number]#1.00TI [facility] ED Clinical Summaryon 2022 ED Clinical Summary Normal [facility] ED Note-Physicianon 01-08-20 ED Note-Physician [facility] Comment on above: Result Comment: Elec tronically Signed By: Darren Guzman DO.br\Date and Time Signed: 01/07/23 00:23 EST ED Patient Education Noteon 01-07-2023 ED Patient Education Note Normal [facility] ED Patient Summaryon 023 ED Patient Summary Normal [facility] Insurance Correspondence Off ice01-07-2023 Insurance Correspondence Office [id number]#1.00TI [facility] Pre-Arrival Noteon Pre-Arrival Note Normal [facility] BMPon 01-06-2023 Anion gap [Moles/Vol] 11 mmol/L Normal 6-16 [facility] Comment on above: Performed By: #### 2 845012, 72235854, 34202448, 8362416, 8327815, 9060871 ####[facility] [address] [place] [address] Calcium [Mass/Vol] 8.6 mg/dL Low 8.9-11.1 [facility] Comment on above: Performed By: #### 2 443310, 78040421, 06425392, 2857250, 1300575, 3567682 ####[facility] [address] [place] [address] Chloride [Moles/Vol] 106 mmol/L Normal 101-111 [facility] Comment on above: Performed By: #### 2 891690, 85340768, 48773428, 4215620, 4997680, 7644478 ####[facility] [address] [place] [address] CO2 [Moles/Vol] 21 mmol/L Normal 21-31 [facility] Comment on above: Performed By: #### 2 908632, 96603857, 86417488, 0265472, 9211611, 9876286 ####[facility] [address] [place] [address] Creatinine [Mass/Vol] 0.5 mg/dL Normal 0.5-1.3 [facility] Comment on above: Performed By: #### 2 143910, 55078462, 78284891, 9126875, 5573135, 7926356 ####[facility] [address] [place] [address] Glucose [Mass/Vol] 87 mg/dL Normal 55-199 [facility] Comment on above: Result Comment: If t his glucose result represents a fasting glucose, interpretation should refer to the following reference range: 55-99 mg/dL Performed By: #### 2 370721, 77528607, 58085547, 9957769, 0727245, 6269024 ####[facility] [address] [facility] [place] [address] Potassium [Moles/Vol] 4.2 mmol/L Normal 3.5-5.3 [facility] Comment on above: Performed By: #### 2 692807, 32871474, 90704805, 1619701, 5169979, 6473812 ####[facility] [address] [place] [address] Sodium [Moles/Vol] 134 mmol/L Low 135-145 [facility] Comment on above: Performed By: #### 2 728932, 75729257, 40955028, 1765060, 0338157, 0927950 ####[facility] [address] [place] [address] Urea nitrogen [Mass/Vol] 11 mg/dL Normal 5-21 [facility] Comment on above: Performed By: #### 2 513478, 95279861, 14618067, 3334356, 6871955, 2132962 ####[facility] [address] [place] [address] Urea nitrogen/Creatinine [Mass ratio] 22 No Units High 10-20 [facility] Comment on above: Performed By: #### 2 407838, 92594752, 34437714, 7943640, 2105394, 7294404 ####[facility] [address] [place] [address] CHEMISTRYOrdered By: SYSTEM SYSTEM on 01-06-2023 Albumin [...] 239 [iU]/d High 5 - 43 Int._Unit/L FT Remisol Bilirubin [Mass/Vol] 1.1 mg/dL Normal 0.0 [...] mL/min/1.73 m2 Normal >=59mL/min/1 .73 m2 [facility] Chem S Comment on above: [...] 11 mg/dL Normal 5 - 21 mg/dL [facility] Remisol Urea nitrogen/Creatinine [Mass ratio] 22 mg/mg High 10 - 20 FT Remisol Free T4on 01-06-2023 Free T4 [Mass/Vol] 0.80 ng/dL Normal 0.58-1.64 [facility] Comment on above: Order Comment: Free T4 added by Discern Rule due to a TSH result of <0.34 or >5.60. Performed By: #### 2 727656, 54442351, 82151557, 0098495, 7905700, 3957837 ####[facility] [address] [place] [address] HEMATOLOGYOrdered By: Marlyn Villa on 01-06-2023 Platelets (Bld) [#/Vol] 116.0 E9/L Low 150.0 - 500.0 E9/L [facility] HemeAutoSS Hep Func Panelon 01-06-2023 Albumin [Mass/Vol] 3.5 g/dL Normal 3.3-5.0 [facility] Comment on above: Performed By: #### 2 861320, 07912643, 22313090, 8881443, 8663053, 7992618 ####[facility] [address] [place] [address] Albumin/Globulin (S) [Mass conc ratio] 1.0 Low 1.1-2.2 [facility] Comment on above: Performed By: #### 2 253778, 06129653, 70444192, 2269261, 7628221, 5632450 ####[facility] [address] [place] [address] ALP [Catalytic activity/Vol] 86 Int._Unit/L Normal 21-98 [facility] Comment on above: Performed By: #### 2 285835, 63369285, 24634987, 5880795, 7359384, 9132585 ####[facility] [address] [place] [address] ALT No additional P-5'-P [Catalytic activity/Vol] 142 Int._Unit/L High 6-46 [facility] Comment on above: Performed By: #### 2 891925, 77744990, 75955158, 2990227, 3456468, 4343811 ####[address] [place] [address] AST [Catalytic activity/Vol] 239 Int._Unit/L High 5-43 [facility] Comment on above: Performed By: #### 2 445254, 29510076, 85338347, 0692343, 0615259, 2396942 ####[facility] [address] [place] [address] Bilirubin [Mass/Vol] 1.1 mg/dL Normal 0.0-1.1 [facility] Comment on above: Performed By: #### 2 821702, 98782045, 47751516, 2758957, 5081118, 7704733 ####[place] [address] [address] Bilirubin.direct [Mass/Vol] 0.3 mg/dL Normal 0.1-0.4 [facility] Comment on above: Performed By: #### 2 687556, 43918872, 91715792, 8298978, 5708143, 1541425 ####[address] [address] Bilirubin.indirect [Mass or moles/Vol] 0.8 mg/dL Normal 0.1-0.9 [facility] Comment on above: Performed By: #### 2 081245, 72790813, 99365624, 6686982, 2416965, 1441710 ####[facility] [address] [place] [address] Globulin (S) [Mass/Vol] 3.6 g/dL Normal 1.4-4.0 [facility] Comment on above: Performed By: #### 2 358409, 96919401, 36515529, 9130160, 8194353, 7903499 ####[facility] [address] [place] [address] Protein [Mass/Vol] 7.1 g/dL Normal 6.0-7.8 [facility] Comment on above: Performed By: #### 2 653706, 01795666, 80440026, 6445760, 5634857, 7149209 ####[facility] [address] [place] [address] Inpatient Clinical Summaryon 01-06-2023 Inpatient Clinical Summary Normal [facility] Inpatient Patient Summaryon 01-06-2023 Inpatient Patient Summary Normal [facility] Inpatient Patient Summary Normal [facility] Interdisciplinary Note - Alonso e Manageron 01-06-2023 Interdisciplinary Note - Visiting Housekeeper Per nursing and hospitalist. Mother will be transporting pt home at 230 today. LVM for mom. Pt denied rehab services. CRM spoke to mother and pt, mother is agreeable to taking pt into her custody and care. Ari BAUTISTA witnessed conversation. Normal [facility] Comment on above: Result Comment: Elec tronically Signed By: Marlyn Echols\sri\Date and Time Signed: 01/06/23 14:35 EST Monitor Recordon 01-06-2023 Monitor Record [id number] [facility] [id number]#1.00TI FF Normal [facility] Monitor Record [id number] [facility] [id number]#1.00TI FF Normal [facility] Platelet Counton 01-06-2023 Platelets (Bld) [#/Vol] 116.0 E9/L Low 150.0-500.0 [facility] Comment on above: Performed By: #### 2 454338, 70753404, 26056674, 1684914, 6426797, 8025503 ####[facility] [address] [place] [address] Progress Note-Nurseon 2022 Progress Note-Nurse Normal [facility] Progress Note-Nurse Normal [facility] Progress Note-Physicianon Progress Note-Physician Normal [facility] Comment on above: Result Comment: Elec tronically Signed By: Awa BAUTISTA, Bekah Christian\Date and Time Signed: 01/06/23 07:04 EST\.br\Electronically Co-Signed By: Francisco Cruz MD\.br\Date and Time Co-Signed: 01/06/23 09:26 EST TSH With T4fr Reflexon 01-06 TSH Qn 5.89 m[IU]/L High 0.34-5.60 [facility] Comment on above: Performed By: #### 2 696907, 74731051, 76603211, 8084420, 7817028, 7025446 ####[facility] [address] [place] [address] eGFRon 01-06-2023 GFR/1.73 sq M.predicted among non-blacks MDRD (S/P/Bld) [Vol rate/Area] 129 mL/min/1.73 m2 Normal >=59 [facility] Comment on above: Order Comment: Order added by Discern Expert. Result Comment: [employer] Planter justin kidney disease could be indicated at eGFR's of less than 60 mL/min/1.73m2. Kidney failure is indicated at less than 15 mL/min/1.73m2. Performed By: #### 2 428762, 46851367, 47421143, 6626794, 2856690, 9450780 ####[facility] [address] [place] [address] Auto Diffon 2023 Basophils/100 WBC (Bld) 1.3 % Normal 0.0-2.0 [facility] Comment on above: Order Comment: Order Added by Discern Expert. Performed By: #### 2 064465, 8533092, 16389405, 3614347, 6373466, 3616327, 0949290 ####[facility] [address] [place] [address] Basophils/Leukocytes Auto (Bld) [Pure # fraction] 0.1 E9/L Normal 0.0-0.2 [facility] Comment on above: Order Comment: Order Added by Discern Expert. Performed By: #### 2 315236, 4982237, 65407625, 2261504, 9420204, 0371238, 7739902 ####[address] [place] [address] Eosinophils/100 WBC (Bld) 1.8 % Normal 0.0-8.0 [facility] Comment on above: Order Comment: Order Added by Discern Expert. Performed By: #### 2 795798, 7311803, 39511600, 5960471, 9555864, 7453896, 2950714 ####[address] [place] [address] Eosinophils/Leukocyte s Auto (Bld) [Pure # fraction] 0.1 E9/L Normal 0.0-0.5 [facility] Comment on above: Order Comment: Order Added by Discern Expert. Performed By: #### 2 886545, 8812449, 92187959, 6336270, 6484851, 7029805, 7147125 ####[address] [address] Lymphocytes/100 WBC (Bld) 46.8 % Normal 14.0-50.0 [facility] Comment on above: Order Comment: Order Added by Radha Expert. Performed By: #### 2 896406, 6055079, 39135993, 2989442, 9828107, 4880740, 5079740 ####[address] [address] Lymphocytes/Leukocyte s Auto (Bld) [Pure # fraction] 2.6 E9/L Normal 1.0-4.0 [facility] Comment on above: Order Comment: Order Added by Discern Expert. Performed By: #### 2 780562, 7627421, 27824095, 6701437, 0212874, 3078377, 7516464 ####[address] [address] Monocytes/100 WBC (Bld) 5.4 % Normal 4.0-14.0 [facility] Comment on above: Order Comment: Order Added by Radha Expert. Performed By: #### 2 496144, 1477562, 73626394, 7010548, 4152962, 2429837, 6233038 ####[address] [place] [address] Monocytes/Leukocytes Auto (Bld) [Pure # fraction] 0.3 E9/L Normal 0.2-1.0 [facility] Comment on above: Order Comment: Order Added by Discern Expert. Performed By: #### 2 034349, 6401678, 19612421, 8792649, 6552263, 4476021, 0275713 ####[address] [place] [address] Neutrophils/100 WBC (Bld) 44.7 % Normal 36.0-75.0 [facility] Comment on above: Order Comment: Order Added by Discern Expert. Performed By: #### 2 808775, 7754696, 17774806, 2002024, 2173352, 1704243, 6670916 ####[address] [address] Neutrophils/Leukocyte s Auto (Bld) [Pure # fraction] 2.5 E9/L Normal 2.0-7.5 [facility] Comment on above: Order Comment: Order Added by Discern Expert. Performed By: #### 2 724413, 1169820, 11108280, 3539361, 4521422, 6630660, 5237429 ####[address] [place] [address] Basophils/100 WBC (Bld) 0.7 % Normal 0.0-2.0 [facility] Comment on above: Order Comment: Order Added by Discern Expert. Performed By: #### 2 923357, 86412258, 5857864, 2719105, 0886615, 60597638, 29766429 ####[address] [place] [address] Basophils/Leukocytes Auto (Bld) [Pure # fraction] 0.1 E9/L Normal 0.0-0.2 [facility] Comment on above: Order Comment: Order Added by Discern Expert. Performed By: #### 2 716383, 49172475, 9469753, 6025209, 1999928, 29272053, 23534911 ####[address] [place] [address] Eosinophils/100 WBC (Bld) 1.2 % Normal 0.0-8.0 [facility] Comment on above: Order Comment: Order Added by Discern Expert. Performed By: #### 2 173856, 12589678, 8778497, 2115292, 6428364, 17698371, 66291335 ####[address] [address] Eosinophils/Leukocyte s Auto (Bld) [Pure # fraction] 0.1 E9/L Normal 0.0-0.5 [facility] Comment on above: Order Comment: Order Added by Discern Expert. Performed By: #### 2 108931, 89664177, 7511154, 8928891, 7868350, 85145483, 31452324 ####[address] [address] Lymphocytes/100 WBC (Bld) 40.2 % Normal 14.0-50.0 [facility] Comment on above: Order Comment: Order Added by Discern Expert. Performed By: #### 2 956911, 87935129, 4010787, 3046430, 7239968, 65695523, 55371676 ####[address] [address] Lymphocytes/Leukocyte s Auto (Bld) [Pure # fraction] 4.1 E9/L High 1.0-4.0 [facility] Comment on above: Order Comment: Order Added by Discern Expert. Performed By: #### 2 373911, 26590169, 5232054, 1546052, 2844532, 49501814, 41708010 ####[address] [address] Monocytes/100 WBC (Bld) 4.6 % Normal 4.0-14.0 [facility] Comment on above: Order Comment: Order Added by Discern Expert. Performed By: #### 2 577575, 16121833, 0485201, 4703596, 2780300, 07034097, 77600399 ####[address] [place] [address] Monocytes/Leukocytes Auto (Bld) [Pure # fraction] 0.5 E9/L Normal 0.2-1.0 [facility] Comment on above: Order Comment: Order Added by Discern Expert. Performed By: #### 2 629975, 89243024, 2791787, 5598251, 1330741, 99711084, 04194266 ####[facility] [address] [place] [address] Neutrophils/100 WBC (Bld) 53.3 % Normal 36.0-75.0 [facility] Comment on above: Order Comment: Order Added by Discern Expert. Performed By: #### 2 058718, 36578286, 2987900, 1103164, 1878592, 80011981, 69653119 ####[facility] [address] [place] [address] Neutrophils/Leukocyte s Auto (Bld) [Pure # fraction] 5.5 E9/L Normal 2.0-7.5 [facility] Comment on above: Order Comment: Order Added by Discern Expert. Performed By: #### 2 284458, 83570103, 9231439, 8013730, 2615829, 79350588, 93916361 ####[address] [place] [address] B hCG Qualon 2023 Beta HCG ( test) Ql Negative Normal [facility] Comment on above: Performed By: #### 2 5955721 ####[facility] [address] [place] [address] BMP 2023 Creatinine [Mass/Vol] 0.7 mg/dL Normal 0.5-1.3 [facility] Comment on above: Performed By: #### 2 509336, 0922461, 29798026, 9992163, 0686946, 2817272, 5028843 ####[facility] [address] [facility] [address] Urea nitrogen [Mass/Vol] 15 mg/dL Normal 5-21 [facility] Comment on above: Performed By: #### 2 021544, 1604984, 18065088, 2011583, 7415245, 6356709, 4288060 ####[facility] [address] [place] [address] Urea nitrogen/Creatinine [Mass ratio] 21 No Units High 10-20 [facility] Comment on above: Performed By: #### 2 923565, 0485298, 89246220, 5608557, 6706831, 4197741, 0457036 ####[facility] [address] [facility] [place] [address] Anion gap [Moles/Vol] 13 mmol/L Normal 6-16 [facility] Comment on above: Performed By: #### 2 825389, 2402786, 82253063, 4014075, 7769126, 9535197, 7377817 ####[facility] [address] [place] [address] Calcium [Mass/Vol] 8.3 mg/dL Low 8.9-11.1 [facility] Comment on above: Performed By: #### 2 859621, 4647472, 81374759, 2512211, 3798032, 1973314, 4990119 ####[facility] [address] [place] [address] Chloride [Moles/Vol] 107 mmol/L Normal 101-111 [facility] Comment on above: Performed By: #### 2 874798, 6746547, 95371030, 4633210, 9403163, 8311893, 3395483 ####[facility] [address] [place] [address] CO2 [Moles/Vol] 22 mmol/L Normal 21-31 [facility] Comment on above: Performed By: #### 2 772014, 3898780, 16456890, 5844431, 3871262, 0060614, 2596495 ####[facility] [address] [place] [address] Glucose [Mass/Vol] 93 mg/dL Normal 55-199 [facility] Comment on above: Result Comment: If t his glucose result represents a fasting glucose, interpretation should refer to the following reference range: 55-99 mg/dL Performed By: #### 2 385806, 6241915, 71456818, 6831536, 0860661, 8219744, 8700524 ####[facility] [address] [place] [address] Potassium [Moles/Vol] 3.8 mmol/L Normal 3.5-5.3 [facility] Comment on above: Performed By: #### 2 968766, 5635725, 57294897, 7162523, 0633603, 1029795, 5312883 ####[facility] [address] [place] [address] Sodium [Moles/Vol] 138 mmol/L Normal 135-145 [facility] Comment on above: Performed By: #### 2 489447, 2481262, 41217423, 8299541, 9814299, 5882113, 4725027 ####[facility] [address] [place] [address] Creatinine [Mass/Vol] 0.8 mg/dL Normal 0.5-1.3 [facility] Comment on above: Performed By: #### 2 247213, 08356656, 7907153, 4915926, 1320525, 87272503, 93495080 ####[facility] [address] [place] [address] Urea nitrogen [Mass/Vol] 13 mg/dL Normal 5-21 [facility] Comment on above: Performed By: #### 2 951745, 06813575, 6746647, 3186461, 2720186, 33009325, 29470945 ####[facility] [address] [place] [address] Urea nitrogen/Creatinine [Mass ratio] 16 No Units Normal 10-20 [facility] Comment on above: Performed By: #### 2 380298, 94452869, 8666217, 6444516, 9465693, 07863867, 80200828 ####[facility] [address]Nor[place] [address] Anion gap [Moles/Vol] 13 mmol/L Normal 6-16 [facility] Comment on above: Performed By: #### 2 435305, 64022984, 0773051, 8445524, 6587343, 97581373, 92521106 ####[facility] [address]Nor[place] [address] Calcium [Mass/Vol] 8.6 mg/dL Low 8.9-11.1 [facility] Comment on above: Performed By: #### 2 765974, 33971509, 1052465, 4357607, 1418531, 09194817, 67348907 ####[facility] [address] [place]Nor[place] [address] Chloride [Moles/Vol] 106 mmol/L Normal 101-111 [facility] Comment on above: Performed By: #### 2 885510, 86773654, 2136447, 0289600, 5370903, 16519724, 04579619 ####[facility] [address] AveNorrich[place] [address] CO2 [Moles/Vol] 23 mmol/L Normal 21-31 [facility] Comment on above: Performed By: #### 2 706084, 02394747, 9442353, 9003103, 0002814, 75505965, 49944351 ####[facility] [address] [place]Nor[place] [address] Glucose [Mass/Vol] 91 mg/dL Normal 55-199 [facility] Comment on above: Result Comment: If t his glucose result represents a fasting glucose, interpretation should refer to the following reference range: 55-99 mg/dL Performed By: #### 2 198603, 84418011, 1580827, 5115225, 8783008, 55635769, 84322334 ####[facility] [address] [place] [address] Potassium [Moles/Vol] 3.8 mmol/L Normal 3.5-5.3 [facility] Comment on above: Performed By: #### 2 819360, 16410899, 2078480, 0552599, 7119396, 28375556, 14431867 ####[facility] [address] [place] [address] Sodium [Moles/Vol] 138 mmol/L Normal 135-145 [facility] Comment on above: Performed By: #### 2 542366, 30820098, 6082461, 7316151, 5952684, 08003119, 61427042 ####[facility] [address] [place] [address] CBC w/ Auto Diffon Erythrocyte distribution width (RBC) [Ratio] 12.8 % Normal 10.9-14.2 [facility] Comment on above: Performed By: #### 2 611046, 2567791, 54078512, 3312809, 9568051, 7285740, 1113750 ####[facility] [address] [place] [address] Hematocrit (Bld) [Volume fraction] 39.6 % Normal 34.0-46.0 [facility] Comment on above: Performed By: #### 2 741991, 0512552, 84750209, 4791985, 1472305, 8668758, 2037840 ####[facility] [address] [place] [address] Hemoglobin (Bld) [Mass/Vol] 13.7 g/dL Normal 12.0-16.0 [facility] Comment on above: Performed By: #### 2 827662, 1503389, 70652023, 3806552, 7455895, 9204623, 1222198 ####[facility] [address] [place] [address] MCH (RBC) [Entitic mass] 33.8 pg Normal 27.0-34.0 [facility] Comment on above: Performed By: #### 2 126981, 1623355, 68556533, 3116753, 7405288, 8303885, 2333341 ####[facility] [address] [place] [address] MCHC (RBC) [Mass/Vol] 34.5 g/dL Normal 31.4-36.0 [facility] Comment on above: Performed By: #### 2 126315, 6645933, 05312641, 1048212, 4751359, 0273945, 3689218 ####[address] [place] [address] MCV (RBC) [Entitic vol] 98.0 fL Normal 80.0-100.0 [facility] Comment on above: Performed By: #### 2 138236, 0763510, 19603543, 4258424, 1500155, 0208387, 5359951 ####[address] [address] Platelet mean volume (Bld) [Entitic vol] 8.8 fL Normal 6.4-10.8 [facility] Comment on above: Performed By: #### 2 313047, 6963372, 70806243, 6143842, 9628208, 6336574, 3676674 ####[address] [place] [address] Platelets (Bld) [#/Vol] 124.0 E9/L Low 150.0-500.0 [facility] Comment on above: Performed By: #### 2 584375, 0139864, 20431269, 6360400, 4274744, 5640461, 4185232 ####[address] [place] [address] RBC (Bld) [#/Vol] 4.0 E12/L Low 4.3-5.9 [facility] Comment on above: Performed By: #### 2 333321, 6743381, 87233530, 0633257, 6711196, 1069604, 7885477 ####[facility] [address] [place] [address] WBC corrected for nucl RBC Auto (Bld) [#/Vol] 5.6 E9/L Normal 4.0-11.0 [facility] Comment on above: Performed By: #### 2 303460, 3088113, 49751855, 4390585, 4959131, 8005016, 6956873 ####[address] [place] [address] Erythrocyte distribution width (RBC) [Ratio] 13.3 % Normal 10.9-14.2 [facility] Comment on above: Performed By: #### 2 054019, 39731688, 1761470, 6013112, 9990805, 36694304, 13239790 ####[address] [place] [address] Hematocrit (Bld) [Volume fraction] 44.7 % Normal 34.0-46.0 [facility] Comment on above: Performed By: #### 2 692090, 35073284, 0697337, 2077532, 0007687, 09734193, 91189975 ####[address] [address] Hemoglobin (Bld) [Mass/Vol] 15.6 g/dL Normal 12.0-16.0 [facility] Comment on above: Performed By: #### 2 869985, 68436604, 0426564, 7168220, 8146339, 04189893, 78063446 ####[address] [place] [address] MCH (RBC) [Entitic mass] 34.3 pg High 27.0-34.0 [facility] Comment on above: Performed By: #### 2 972806, 78652507, 4713715, 8980882, 9396789, 51259335, 33748791 ####[address] [address] MCHC (RBC) [Mass/Vol] 34.9 g/dL Normal 31.4-36.0 [facility] Comment on above: Performed By: #### 2 420523, 31574263, 4155288, 2546822, 9009162, 58414663, 77393438 ####[facility] [address] [place] [address] MCV (RBC) [Entitic vol] 98.4 fL Normal 80.0-100.0 [facility] Comment on above: Performed By: #### 2 992229, 10150587, 2078331, 3542178, 6743669, 08452967, 31976619 ####[address] [place] [address] Platelet mean volume (Bld) [Entitic vol] 9.1 fL Normal 6.4-10.8 [facility] Comment on above: Performed By: #### 2 280637, 68055095, 4197724, 3660600, 7368833, 56958832, 54395026 ####[facility] [address] [place] [address] Platelets (Bld) [#/Vol] 197.0 E9/L Normal 150.0-500.0 [facility] Comment on above: Performed By: #### 2 157973, 73052725, 5930085, 7368101, 8495697, 94120594, 85275727 ####[address] RBC (Bld) [#/Vol] 4.5 E12/L Normal 4.3-5.9 [facility] Comment on above: Performed By: #### 2 716422, 90683524, 8643485, 7011758, 3829325, 96538046, 14576479 ####[address] [place] [address] WBC corrected for nucl RBC Auto (Bld) [#/Vol] 10.3 E9/L Normal 4.0-11.0 [facility] Comment on above: Performed By: #### 2 905362, 35216243, 3363869, 1665689, 9138613, 22003907, 61503514 ####[facility] [address] [place] [address] CHEMISTRYOrdered By: SYSTEM SYSTEM on 2023 Ethanol [...] mL/min/1.73 m2 Normal >=59mL/min/1 .73 m2 [facility] Chem S Comment on above: [...] mL/min/1.73 m2 Normal >=59mL/min/1 .73 m2 [facility] Chem S Comment on above: Interpretive Data: C hronic kidney disease could be indicated at eGFR's of less than 60 mL/min/1.73m2. Kidney failure is indicated at less than 15 mL/min/1.73m2. Globulin (S) [Mass/Vol] 4.1 g/dL High 1.4 - 4.0 gm/dL [facility] Remisol Glucose [Mass/Vol] 91 mg/dL Normal 55 - 199 mg/dL [facility] [...] s Normal 25.1 - 36.5 second(s) [facility] Auto Coag Comment on above: [...] were obtained from a study by Nathan Greenbush, et al. prepared from 1437 samples obtained at 7 different centers using the same coagulation reagent and instrumentation as [facility]. Currently there are no coagulation studies available worldwide for children to 14 days, and no normal ranges. Heparin therapeutic range (represented by Anti-Factor Xa activity of 0.2 - 0.4 U/mL) corresponds to PTT of 56.6 - 109.0 sec. INR Coag (PPP) [Relative time] 1.2 {INR} Invalid Interpretation Code [facility] Auto Coag Comment on above: Interpretive Data: I NR results are specifically intended to assess patients stabilized on long-term Anticoagulation therapy suggested INR s Less Intensive Anticoagulation 2.0 3.0 Conventional Range 3.0 4.5 PT Coag (PPP) [Time] 13.6 s High 9.4 - 1 2.5 second(s) [facility] Auto Coag Comment on above: [...] same coagulation reagent and instrumentation as [facility]. Currently there are no coagulation studies available worldwide for children to 14 days, and no normal ranges. CT Head or Brain w/o Contras ton 2023 CT Head or Brain w/o Contrast Normal [facility] CT Spine Cervical w/o Contra ston 2023 CT Spine Cervical w/o Contrast Normal [facility] Consent for Treatmenton 12-13 Consent for Treatment [id number]#1.00TI FF Normal [facility] Consultation Noteon 01-06-20 Consultation Note Normal [facility] Comment on above: Result Comment: Elec tronically Signed By: Hiwot GREENWOOD, Sekou Tavares, Emy Alcala.br\Date and Time Signed: 01/05/23 07:45 EST\.br\Electronically Co-Signed By: Francisco Cruz MD\.br\Date and Time Co-Signed: 01/05/23 09:14 EST ED Clinical Summaryon 2022 ED Clinical Summary Normal Robby soliman [facility] ED Note-Physicianon 01-06-20 ED Note-Physician Normal [facility] Comment on above: Result Comment: Elec tronically Signed By: Kerry Linton DO\.br\Date and Time Signed: 01/05/23 04:23 EST ED Patient Education Noteon 2023 ED Patient Education Note Normal [facility] ED Patient Summaryon 023 ED Patient Summary Normal [facility] Ethanolon 2023 Ethanol [Mass/Vol] mg/dL Normal <=7 [facility] Comment on above: Performed By: #### 2 051470 ####[facility] [address] [place] [address] Ethanol [Mass/Vol] 83 mg/dL Abnormal <=7 [facility] Comment on above: Order Comment: Unsuc cessful attempts to collect labs, other phlebotomists notified. HH Result Comment: Crit ical Result S_ETOH:83.0 Called to CARLOS MORSE AT ICU by ERNESTO REYNAGA And Read Back For Confirmation at: 2023 10:13:51\Critical Result verified by repeat analysis Performed By: #### 2 753837 ####[facility] [address] [place] [address] Ethanol [Mass/Vol] 266 mg/dL Abnormal <=7 [facility] Comment on above: Result Comment: Crit ical Result verified by repeat analysis\Critical Result S_ETOH:266.0 Called to RODOLFO PAYTON AT ER by MANUEL CONTRERAS And Read Back For Confirmation at: 2023 02:33:18 Performed By: #### 2 957996 ####[facility] [address] [place] [address] HEMATOLOGYOrdered By: SYSTEM SYSTEM on 2023 Basophils/100 [...] 11.0 E9/L [facility] HemeAutoSS HEMATOLOGYOrdered By: Arlene Contrersa on 2023 Erythrocyte distribution width (RBC) [Ratio] [...] 10.3 E9/L Normal 4.0 - 11.0 E9/L [facility] HemeAutoSS Hep Func Panelon 2023 Albumin [Mass/Vol] 3.3 g/dL Normal 3.3-5.0 [facility] Comment on above: Performed By: #### 2 648567, 3816469, 62882362, 6633974, 4928327, 2972335, 7737565 ####[facility] [address] [place] [address] Albumin/Globulin (S) [Mass conc ratio] 1.0 Low 1.1-2.2 [facility] Comment on above: Performed By: #### 2 119673, 1043042, 82944107, 9235211, 8725840, 8581507, 8103553 ####[facility] [address] [place] [address] ALP [Catalytic activity/Vol] 86 Int._Unit/L Normal 21-98 [facility] Comment on above: Performed By: #### 2 927127, 6261262, 57562176, 5511280, 2022083, 8345130, 4738755 ####[facility] [address] [place] [address] ALT No additional P-5'-P [Catalytic activity/Vol] 145 Int._Unit/L High 6-46 [facility] Comment on above: Performed By: #### 2 555308, 3920584, 89726843, 7822986, 2725993, 8129700, 6760024 ####[facility] [address] [place] [address] AST [Catalytic activity/Vol] 298 Int._Unit/L High 5-43 [facility] Comment on above: Performed By: #### 2 035567, 4868444, 16139868, 1374306, 9085615, 8096651, 8140089 ####[facility] [address] [place] [address] Bilirubin [Mass/Vol] 0.4 mg/dL Normal 0.0-1.1 [facility] Comment on above: Performed By: #### 2 288960, 5820243, 78981431, 9184620, 4930551, 1121235, 4195789 ####[facility] [address] [place] [address] Bilirubin.direct [Mass/Vol] 0.2 mg/dL Normal 0.1-0.4 [facility] Comment on above: Performed By: #### 2 994661, 5294602, 10028046, 6892980, 5544162, 6936385, 3568145 ####[facility] [address] [place] [address] Bilirubin.indirect [Mass or moles/Vol] 0.2 mg/dL Normal 0.1-0.9 [facility] Comment on above: Performed By: #### 2 065372, 7472940, 72782021, 6210061, 1512374, 9590983, 5350223 ####[facility] [address] [place] [address] Globulin (S) [Mass/Vol] 3.4 g/dL Normal 1.4-4.0 [facility] Comment on above: Performed By: #### 2 320596, 6760304, 03591645, 8149927, 4097079, 6737323, 7271634 ####[address] [place] [address] Protein [Mass/Vol] 6.7 g/dL Normal 6.0-7.8 [facility] Comment on above: Performed By: #### 2 865448, 3422679, 17580279, 3718480, 0148946, 6330418, 4297442 ####[address] [place] [address] Albumin [Mass/Vol] 3.8 g/dL Normal 3.3-5.0 [facility] Comment on above: Performed By: #### 2 073111, 34301928, 3390493, 8379268, 0095800, 72551963, 60148199 ####[address] [place] [address] Albumin/Globulin (S) [Mass conc ratio] 0.9 Low 1.1-2.2 [facility] Comment on above: Performed By: #### 2 051645, 17515234, 7341360, 5688993, 1422767, 77611949, 25777591 ####[address] [place] [address] ALP [Catalytic activity/Vol] 103 Int._Unit/L High 21-98 [facility] Comment on above: Performed By: #### 2 791697, 09928145, 2019617, 6939910, 3513609, 93660326, 45907656 ####[address] [place] [address] ALT No additional P-5'-P [Catalytic activity/Vol] 159 Int._Unit/L High 6-46 [facility] Comment on above: Performed By: #### 2 127241, 30248474, 8714575, 8895251, 7222701, 17792247, 73240689 ####[facility] [address] [place] [address] AST [Catalytic activity/Vol] 337 Int._Unit/L High 5-43 [facility] Comment on above: Performed By: #### 2 860005, 97337602, 9882131, 3649606, 8573701, 43464836, 90931183 ####[facility] [address] [place] [address] Bilirubin [Mass/Vol] 0.3 mg/dL Normal 0.0-1.1 [facility] Comment on above: Performed By: #### 2 426871, 56002997, 0470231, 6526891, 3726851, 75941564, 23388662 ####[facility] [address] [place] [address] Bilirubin.direct [Mass/Vol] 0.1 mg/dL Normal 0.1-0.4 [facility] Comment on above: Performed By: #### 2 246244, 43061551, 3226695, 7839851, 6706528, 63971585, 22701321 ####[facility] [address] [place] [address] Bilirubin.indirect [Mass or moles/Vol] 0.2 mg/dL Normal 0.1-0.9 [facility] Comment on above: Performed By: #### 2 033046, 53812714, 2307591, 7318787, 3825085, 70447351, 39440209 ####[facility] [address] [place] [address] Globulin (S) [Mass/Vol] 4.1 g/dL High 1.4-4.0 [facility] Comment on above: Performed By: #### 2 887201, 78234008, 5488986, 5334189, 2693422, 38237250, 61866203 ####[facility] [address] [place] [address] Protein [Mass/Vol] 7.9 g/dL High 6.0-7.8 [facility] Comment on above: Performed By: #### 2 098510, 79736417, 4645026, 6055258, 8908059, 66250170, 68671906 ####[facility] [address] [place] [address] Interdisciplinary Note - Alonso e Manageron 2023 Interdisciplinary Note - Visiting Housekeeper Normal [facility] Comment on above: Result Comment: Elec tronically Signed By: Katy Wood\.br\Date and Time Signed: 01/05/23 14:50 EST Magnesiumon 2023 Magnesium [Mass/Vol] 1.4 mg/dL Normal 1.3-2.4 [facility] Comment on above: Performed By: #### 2 848654, 7220442, 36067237, 3016607, 4557937, 7719846, 5064693 ####[facility] [address] [place] [address] Monitor Recordon 2023 Monitor Record [id number]#1.00TI FF Normal [facility] Monitor Record [id number]#1.00TI FF Normal [facility] Monitor Record [id number]#1.00TI FF Normal [facility] Monitor Record [id number]#1.00TI FF Normal [facility] PT & PTTon 2023 aPTT Coag (PPP) [Time] 35.2 second(s) Normal 25.1-36.5 [facility] Comment on above: Result Comment: Para [...] same coagulation reagent and instrumentation as [facility]. Currently there are no coagulation studies available worldwide for children to 14 days, and no normal ranges. Heparin therapeutic range (represented by Anti-Factor Xa activity of 0.2 - 0.4 U/mL) corresponds to PTT of 56.6 - 109.0 sec. Performed By: #### 2 909510, 09965529, 5161098, 7013529, 5744854, 29500650, 90219683 ####[facility] [address] [place] [address] INR Coag (PPP) [Relative time] 1.2 {INR} Invalid Interpretation Code [facility] Comment on above: Result Comment: INR results are specifically intended to assess patients stabilized on long-term Anticoagulation therapy suggested INR?s ?Less Intensive Anticoagulation? 2.0 ? 3.0Conventional Range 3.0 ? 4.5 Performed By: #### 2 138673, 73564815, 5761643, 6680785, 9030161, 02046148, 87894769 ####[facility] [address] [place] [address] PT Coag (PPP) [Time] 13.6 second(s) High 9.4-12.5 [facility] Comment on above: Result Comment: 15 [...] same coagulation reagent and instrumentation as [facility]. Currently there are no coagulation studies available worldwide for children to 14 days, and no normal ranges. Performed By: #### 2 400414, 60134339, 6927292, 4329227, 8019861, 63454982, 90763786 ####[facility] [address] [place] [address] Phosphoruson 2023 Phosphate [Mass/Vol] 2.7 mg/dL Normal 1.9-4.6 Fish er [facility] Comment on above: Performed By: #### 2 605182, 2168613, 64728688, 6251237, 5577081, 7937152, 9306428 ####[facility] [address] [place] [address] Pre-Arrival Noteon 3 Pre-Arrival Note Normal [facility] RAD - Preliminary Cat Scan R eporton 2023 RAD - Preliminary Cat Scan Report [id number] F Normal [facility] SEROLOGYOrdered By: Alejandra Contreras on 2023 Beta HCG ( test) Ql Negative (01/05/23 1:58 AM) Normal [facility] Man Sero Troponin 0 Hr.on 2023 Troponin I.cardiac [Mass/Vol] 5.50 pg/mL Low 10.10-27.10 [facility] Comment on above: Result Comment: The 95% CI (Confidence Interval) PPV (Positive Predictive Value) for myocardial infarction in females is 38 pg/mL, in males 51 pg/mL. The results should be used in conjunction with clinical conditions of myocardial infarction.(Access High Sensitivity Troponin I Instructions For Use, [employer], September 2017) Performed By: #### 2 638218, 66448343, 3979797, 8553429, 6854243, 39267657, 99562703 ####[facility] [address] [place] [address] U Drug Screenon 2023 Barbiturates Screen Ql (U) Positive Abnormal Negative [facility] Comment on above: Result Comment: Crit ical Result verified by repeat analysis\No confirmation requested by Physican\Unconfirmed by alternate method\Critical Result UD_BARB:POS Called to [facility] AT ER by MANUEL CONTRERAS And Read Back For Confirmation at: 2023 03:46:52Negative Cutoff: <200 ng/mL Performed By: #### 2 114703 ####[address] [place] [address] Benzodiazepines Ql (U) Positive Abnormal Negative [facility] Comment on above: Result Comment: Crit ical Result verified by repeat analysis\No confirmation requested by Physican\Unconfirmed by alternate method\Critical Result UD_BENZ:POS Called to [facility] AT ER by MANUEL CONTRERAS And Read Back For Confirmation at: 2023 03:46:52Negative Cutoff: <200 ng/mL Performed By: #### 2 079977 ####[place] [address] Amphetamines Screen method >1000 ng/mL Ql (U) Negative Normal Negative [facility] Comment on above: Result Comment: Nega tive Cutoff: <1000 ng/mL Performed By: #### 2 733077 ####[address] [address] Cocaine Ql (U) Negative Normal Negative [facility] Comment on above: Result Comment: Nega tive Cutoff: <300 ng/mL Performed By: #### 2 771878 ####[address] [address] Opiates Screen Ql (U) Negative Normal Negative [facility] Comment on above: Result Comment: Nega tive Cutoff: <300 ng/mL Performed By: #### 2 416921 ####[address] [address] Phencyclidine Screen method >25 ng/mL Ql (U) Negative Normal Negative [facility] Comment on above: Result Comment: Nega tive Cutoff: <25 ng/mLThese drug screen results are to be used for medical (i.e., treatment) purposes only. Unconfirmed drug screening results must not be used for non-medical purposes (e.g., employment testing, legal testing). Performed By: #### 2 509883 ####[facility] [address] [place] [address] Tetrahydrocannabinol Screen method >50 ng/mL Ql (U) Negative Normal Negative [facility] Comment on above: Result Comment: Nega tive Cutoff: <50 ng/mL Performed By: #### 2 206680 ####[facility] [address] [place] [address] UA With Cult Reflexon 2022 Bacteria LM Ql (Urine sed) TRACE Normal Trace [facility] Comment on above: Performed By: #### 1 5714352 ####[address] [place] [address] Bilirubin Ql (U) Negative Normal Negative [facility] Comment on above: Performed By: #### 1 3313426 ####[address] [address] Clarity (U) CLEAR Normal Clear [facility] Comment on above: Performed By: #### 1 8209653 ####[facility] [address] [place] [address] Color (U) YELLOW Normal Yellow [facility] Comment on above: Performed By: #### 1 5106572 ####[facility] [address] [place] [address] Crystals LM Ql (Urine sed) Present Normal [facility] Comment on above: Performed By: #### 1 7269232 ####[facility] [address] [place] [address] Epithelial cells.squamous LM.HPF (Urine sed) [#/Area] 0-2 Normal 0-2 [facility] Comment on above: Performed By: #### 1 4908394 ####[facility] [address] [place] [address] Glucose Test strip (U) [Mass/Vol] Negative Normal Negative [facility] Comment on above: Performed By: #### 1 4557737 ####[facility] [address] [place] [address] Hemoglobin Ql (U) 1+ Abnormal Negative [facility] Comment on above: Performed By: #### 1 4191079 ####[address] [place] [address] Ketones (U) [Mass/Vol] Negative Normal Negative [facility] Comment on above: Performed By: #### 1 1764935 ####[address] [address] Sloan.plasma/Lithiu m.RBC (Bld) [Mass ratio] 0-3 Normal 0-3 [facility] Comment on above: Performed By: #### 1 8569208 ####[address] [address] Mucus Ql (Urine sed) TRACE Normal [facility] Comment on above: Performed By: #### 1 2497257 ####[address] [address] Nitrite Ql (U) Negative Normal Negative [facility] Comment on above: Performed By: #### 1 7406542 ####[address] [address] pH (U) 6.5 [pH] Invalid Interpretation Code 5.0-9.0 [facility] Comment on above: Performed By: #### 1 8646598 ####[address] [address] Protein (U) [Mass/Vol] Negative Normal Negative [facility] Comment on above: Performed By: #### 1 2122288 ####[address] [address] Specific gravity (U) [Rel density] 1.020 Invalid Interpretation Code 1.005-1.030 [facility] Comment on above: Performed By: #### 1 3114292 ####[address] [address] Type of Urine collection method Clean Catch Normal [facility] Comment on above: Performed By: #### 1 1142123 ####[facility] [address] [place] [address] Urobilinogen Qn (U) 0.2 {Surinder'U}/dL Normal 0.0-1.0 [facility] Comment on above: Performed By: #### 1 7260003 ####[facility] [address] [place] [address] WBC Auto Ql (U) Negative Normal Negative [facility] Comment on above: Performed By: #### 1 4678643 ####[facility] [address] [place] [address] WBC LM.HPF (Urine sed) [#/Area] 0-5 Normal 0-5 [facility] Comment on above: Performed By: #### 1 5404805 ####[facility] [address] [place] [address] URINALYSISOrdered By: Arlene Contreras on 2023 Bacteria LM Ql (Urine sed) Trace /HPF Normal Trace/HPF FT UA Auto SS Bilirubin Ql (U) Negative (01/05/23 3:02 AM) Normal Negative [facility] UA Auto SS Clarity (U) Clear (01/05/23 [...] AM) Normal Negative [facility] UA Auto SS Sloan.plasma/Lithiu m.RBC (Bld) [Mass ratio] 0-3 /HPF Normal 0-3/HPF [facility] UA Auto SS Mucus Ql (Urine sed) Trace (01/05/23 3:02 AM) Normal FT UA Auto SS Nitrite Ql (U) Negative (01/05/23 3:02 AM) Normal Negative [facility] UA Auto SS pH (U) 6.5 *NA* (01/05/23 3:02 AM) Invalid Interpretation Code 5.0 - 9.0 [facility] UA Auto SS Protein (U) [Mass/Vol] Negative (01/05/23 3:02 AM) Normal Negative [facility] UA Auto SS Specific gravity (U) [Rel density] 1.020 *NA* (01/05/23 3:02 AM) Invalid Interpretation Code 1.005 - 1.030 [facility] UA Auto SS UA Spec Desc Clean Catch (01/05/23 3:02 AM) Normal [facility] UA Auto SS Urobilinogen Qn (U) 0.1404833 {Surinder'U}/dL Normal 0.0 - 1.0 EU/dL FT UA Auto SS WBC Auto Ql (U) Negative (01/05/23 3:02 AM) Normal Negative FT UA Auto SS WBC LM.HPF (Urine sed) [#/Area] 0-5 /HPF Normal 0-5/HPF FT UA Auto SS XR Chest Single Viewon 01-05 XR Chest Single View Normal [facility] XR Knee Complete 4+ Views Le fton 2023 XR Knee Complete 4+ Views Left Normal [facility] eGFRon 2023 GFR/1.73 sq M.predicted among non-blacks MDRD (S/P/Bld) [Vol rate/Area] 119 mL/min/1.73 m2 Normal >=59 [facility] Comment on above: Order Comment: Order added by Discern Expert. Result Comment: Sugarcane Planter justin kidney disease could be indicated at eGFR's of less than 60 mL/min/1.73m2. Kidney failure is indicated at less than 15 mL/min/1.73m2. Performed By: #### 2 777610, 4406422, 83142674, 6230335, 3676651, 6881760, 5258170 ####[address] [place] [address] GFR/1.73 sq M.predicted among non-blacks MDRD (S/P/Bld) [Vol rate/Area] 101 mL/min/1.73 m2 Normal >=59 [facility] Comment on above: Order Comment: Order added by Discern Expert. Result Comment: Sugarcane Planter justin kidney disease could be indicated at eGFR's of less than 60 mL/min/1.73m2. Kidney failure is indicated at less than 15 mL/min/1.73m2. Performed By: #### 2 457004, 93799590, 6352893, 6265878, 7756947, 18786074, 28639439 ####[facility] [address] [place] [address] Auto Diffon 01-02-2023 Basophils/100 WBC (Bld) 0.7 % Normal 0.0-2.0 [facility] Comment on above: Order Comment: Order Added by Radha Expert. Performed By: #### 2 943028, 55091741, 3488186, 6634363, 1133529, 51913184, 51730154 ####[address] [place] [address] Basophils/Leukocytes Auto (Bld) [Pure # fraction] 0.1 E9/L Normal 0.0-0.2 [facility] Comment on above: Order Comment: Order Added by Discern Expert. Performed By: #### 2 823742, 44114502, 4282883, 7459175, 1029556, 52413836, 45050761 ####[facility] [address] [place] [address] Eosinophils/100 WBC (Bld) 1.3 % Normal 0.0-8.0 [facility] Comment on above: Order Comment: Order Added by Radha Expert. Performed By: #### 2 157777, 55650092, 1294677, 5053217, 0789148, 15230740, 29098244 ####[facility] [address] [place] [address] Eosinophils/Leukocyte s Auto (Bld) [Pure # fraction] 0.1 E9/L Normal 0.0-0.5 [facility] Comment on above: Order Comment: Order Added by Discern Expert. Performed By: #### 2 222992, 23696800, 3809944, 2457137, 2491390, 95476341, 07951720 ####[facility] [address] [place] [address] Lymphocytes/100 WBC (Bld) 55.8 % High 14.0-50.0 [facility] Comment on above: Order Comment: Order Added by Discern Expert. Performed By: #### 2 982178, 41952623, 7971142, 4736829, 7148025, 74103490, 91833519 ####[address] [address] Lymphocytes/Leukocyte s Auto (Bld) [Pure # fraction] 4.5 E9/L High 1.0-4.0 [facility] Comment on above: Order Comment: Order Added by Discern Expert. Performed By: #### 2 166909, 09540871, 4495364, 9527351, 2413068, 87492724, 13931078 ####[address] [address] Monocytes/100 WBC (Bld) 3.8 % Low 4.0-14.0 [facility] Comment on above: Order Comment: Order Added by Discern Expert. Performed By: #### 2 525241, 23950714, 0707542, 4428058, 1780010, 63777251, 72866909 ####[facility] [address] [place] [address] Monocytes/Leukocytes Auto (Bld) [Pure # fraction] 0.3 E9/L Normal 0.2-1.0 [facility] Comment on above: Order Comment: Order Added by Discern Expert. Performed By: #### 2 067887, 79800623, 5966926, 1825811, 3414483, 98193287, 98409314 ####[facility] [address] [place] [address] Neutrophils/100 WBC (Bld) 38.4 % Normal 36.0-75.0 [facility] Comment on above: Order Comment: Order Added by Discern Expert. Performed By: #### 2 760765, 13976545, 0915464, 4864914, 6255591, 91681885, 79510586 ####[facility] [address] [place] [address] Neutrophils/Leukocyte s Auto (Bld) [Pure # fraction] 3.1 E9/L Normal 2.0-7.5 [facility] Comment on above: Order Comment: Order Added by Discern Expert. Performed By: #### 2 623267, 14230013, 8893160, 6104494, 4294686, 04031042, 05339921 ####[facility] [address] [place] [address] BMPon 01-02-2023 Creatinine [Mass/Vol] 0.5 mg/dL Normal 0.5-1.3 [facility] Comment on above: Performed By: #### 2 652050, 55252279, 6273182, 9796875, 2750941, 96737770, 97563474 ####[facility] [address] [place] [address] Urea nitrogen [Mass/Vol] 8 mg/dL Normal 5-21 [facility] Comment on above: Performed By: #### 2 873094, 50251592, 2151594, 1797312, 4702848, 11193126, 40239166 ####[facility] [address] [place] [address] Urea nitrogen/Creatinine [Mass ratio] 16 No Units Normal 10-20 [facility] Comment on above: Performed By: #### 2 332510, 64209976, 3250125, 6399453, 6944124, 83933701, 10019242 ####[facility] [address] [place] [address] Anion gap [Moles/Vol] 11 mmol/L Normal 6-16 [facility] Comment on above: Performed By: #### 2 676896, 51067706, 3702083, 7241154, 3615866, 04493390, 99918990 ####[facility] [address] [place] [address] Calcium [Mass/Vol] 8.3 mg/dL Low 8.9-11.1 [facility] Comment on above: Performed By: #### 2 969420, 41067041, 2098754, 4776648, 9289217, 60342236, 92895854 ####[facility] [address] [place] [address] Chloride [Moles/Vol] 109 mmol/L Normal 101-111 [facility] Comment on above: Performed By: #### 2 135842, 87998804, 6198139, 8488826, 3216624, 29553728, 82876878 ####[facility] [address] [place] [address] CO2 [Moles/Vol] 25 mmol/L Normal 21-31 [facility] Comment on above: Performed By: #### 2 731353, 06326182, 8347791, 6300392, 6486613, 16655109, 23845012 ####[facility] [address] [place] [address] Glucose [Mass/Vol] 84 mg/dL Normal 55-199 [facility] Comment on above: Result Comment: If t his glucose result represents a fasting glucose, interpretation should refer to the following reference range: 55-99 mg/dL Performed By: #### 2 086020, 21020940, 4181126, 3181237, 1590314, 92356823, 96577208 ####[facility] [address] [place] [address] Potassium [Moles/Vol] 3.8 mmol/L Normal 3.5-5.3 [facility] Comment on above: Performed By: #### 2 569012, 91086855, 4029002, 2762223, 9470304, 04289202, 38154336 ####[facility] [address] [place] [address] Sodium [Moles/Vol] 141 mmol/L Normal 135-145 [facility] Comment on above: Performed By: #### 2 871492, 51898589, 4789194, 3013976, 8939300, 24496580, 36532480 ####[facility] [address] [place] [address] CBC w/ Auto Diffon 3 Erythrocyte distribution width (RBC) [Ratio] 13.3 % Normal 10.9-14.2 [facility] Comment on above: Performed By: #### 2 713226, 97800360, 6363167, 6780952, 2132766, 67790396, 06419531 ####[address] [place] [address] Hematocrit (Bld) [Volume fraction] 43.4 % Normal 34.0-46.0 [facility] Comment on above: Performed By: #### 2 576960, 63683838, 3805914, 4405974, 9397779, 66715208, 76143388 ####[facility] [address] [place] [address] Hemoglobin (Bld) [Mass/Vol] 14.5 g/dL Normal 12.0-16.0 [facility] Comment on above: Performed By: #### 2 570915, 89756308, 7896183, 6249023, 4445276, 38554107, 42464460 ####[facility] [address] [place] [address] MCH (RBC) [Entitic mass] 33.3 pg Normal 27.0-34.0 [facility] Comment on above: Performed By: #### 2 628147, 72768894, 3866325, 9304279, 5515900, 79440947, 16870916 ####[facility] [address] [place] [address] MCHC (RBC) [Mass/Vol] 33.4 g/dL Normal 31.4-36.0 [facility] Comment on above: Performed By: #### 2 988129, 00207781, 7362568, 9009099, 8500217, 92039329, 59748108 ####[facility] [address] [place] [address] MCV (RBC) [Entitic vol] 99.6 fL Normal 80.0-100.0 [facility] Comment on above: Performed By: #### 2 448429, 39221482, 0113341, 0990135, 6414928, 71199248, 06236295 ####[address] Platelet mean volume (Bld) [Entitic vol] 8.4 fL Normal 6.4-10.8 [facility] Comment on above: Performed By: #### 2 555258, 00084524, 8906272, 0164447, 2366168, 31638058, 97989202 ####[facility] [address] [place] [address] Platelets (Bld) [#/Vol] 204.0 E9/L Normal 150.0-500.0 [facility] Comment on above: Performed By: #### 2 293832, 81910864, 6424646, 7854562, 7174600, 82253517, 97181794 ####[facility] [address] [place], [place] [address] RBC (Bld) [#/Vol] 4.4 E12/L Normal 4.3-5.9 [facility] Comment on above: Performed By: #### 2 719471, 42063214, 4740302, 0263639, 4428832, 70068890, 46581580 ####[address] [place] [address] WBC corrected for nucl RBC Auto (Bld) [#/Vol] 8.0 E9/L Normal 4.0-11.0 [facility] Comment on above: Performed By: #### 2 267337, 63609453, 8676127, 1043002, 1935722, 30359027, 86134762 ####[facility] [address] [place] [address] CHEMISTRYOrdered By: SYSTEM SYSTEM on 01-02-2023 Anion [...] mL/min/1.73 m2 Normal >=59mL/min/1 .73 m2 [facility] Chem S Comment on above: [...] 141 mmol/L Normal 135 - 145 mmol/L [facility] Remisol Troponin I.cardiac [Mass/Vol] 4.90 pg/mL Low [...] 8 mg/dL Normal 5 - 21 mg/dL [facility] Remisol Urea nitrogen/Creatinine [Mass ratio] 16 mg/mg Normal 10 - 20 [facility] COAGULATIONOrdered By: Sixto Coleman on 01-02-2023 aPTT Coag (PPP) [Time] 34.5 s Normal 25.1 - 36.5 second(s) [facility] Auto Coag Comment on above: [...] same coagulation reagent and instrumentation as [facility]. Currently there are no coagulation studies available worldwide for children to 14 days, and no normal ranges. Heparin therapeutic range (represented by Anti-Factor Xa activity of 0.2 - 0.4 U/mL) corresponds to PTT of 56.6 - 109.0 sec. INR Coag (PPP) [Relative time] 1.1 {INR} Invalid Interpretation Code [facility] Auto Coag Comment on above: Interpretive Data: I NR results are specifically intended to assess patients stabilized on long-term Anticoagulation therapy suggested INR s Less Intensive Anticoagulation 2.0 3.0 Conventional Range 3.0 4.5 PT Coag (PPP) [Time] 12.2 s Normal 9.4 - 1 2.5 second(s) [facility] Auto Coag Comment on above: [...] same coagulation reagent and instrumentation as [facility]. Currently there are no coagulation studies available worldwide for children to 14 days, and no normal ranges. Consent for Treatmenton 12-13 Consent for Treatment [id number] FF Normal [facility] Discharge Instructionson Discharge Instructions [id number] FF Normal [facility] ED Clinical Summaryon 2022 ED Clinical Summary Normal [facility] ED Note-Physicianon 01-03-20 23 ED Note-Physician Normal [facility] Comment on above: Result Comment: Elec tronically Signed By: Darren Guzman DO\.br\Date and Time Signed: 01/02/23 02:02 EST ED Patient Education Noteon 01-02-2023 ED Patient Education Note Normal [facility] ED Patient Summaryon 023 ED Patient Summary Normal [facility] Ethanolon 01-02-2023 Ethanol [Mass/Vol] 359 mg/dL Abnormal <=7 [facility] Comment on above: Result Comment: Crit ical Result verified by repeat analysis\Critical Result S_ETOH:359.0 Called to [facility] AT ER by SIXTO COLEMAN And Read Back For Confirmation at: 01/02/2023 01:49:19 Performed By: #### 2 697187 ####[facility] [address] [place] [address] HEMATOLOGYOrdered By: SYSTEM SYSTEM on 01-02-2023 Basophils/100 [...] 8.0 E9/L Normal 4.0 - 11.0 E9/L [facility] HemeAutoSS Magnesiumon 01-02-2023 Magnesium [Mass/Vol] 1.9 mg/dL Normal 1.3-2.4 [facility] Comment on above: Performed By: #### 2 150532, 45140860, 0852740, 8905250, 4515962, 83937182, 52735980 ####[facility] [address] [place] [address] PT & PTTon 01-02-2023 aPTT Coag (PPP) [Time] 34.5 second(s) Normal 25.1-36.5 [facility] Comment on above: Result Comment: Para [...] same coagulation reagent and instrumentation as [facility]. Currently there are no coagulation studies available worldwide for children to 14 days, and no normal ranges. Heparin therapeutic range (represented by Anti-Factor Xa activity of 0.2 - 0.4 U/mL) corresponds to PTT of 56.6 - 109.0 sec. Performed By: #### 2 313257, 73843195, 5661629, 4472530, 4884855, 09998646, 80276141 ####[facility] [address] [place] [address] INR Coag (PPP) [Relative time] 1.1 {INR} Invalid Interpretation Code [facility] Comment on above: Result Comment: INR results are specifically intended to assess patients stabilized on long-term Anticoagulation therapy suggested INR?s ?Less Intensive Anticoagulation? 2.0 ? 3.0Conventional Range 3.0 ? 4.5 Performed By: #### 2 699087, 42873293, 0865187, 4472861, 5929777, 52402553, 88666258 ####[facility] [address] [place] [address] PT Coag (PPP) [Time] 12.2 second(s) Normal 9.4-12.5 [facility] Comment on above: Result Comment: 15 [...] same coagulation reagent and instrumentation as [facility]. Currently there are no coagulation studies available worldwide for children to 14 days, and no normal ranges. Performed By: #### 2 373856, 65682755, 3630017, 9617305, 9052758, 33261552, 97332531 ####[facility] [address] [place] [address] Pre-Arrival Noteon 3 Pre-Arrival Note Normal [facility] Pre-Arrival Note Normal [facility] Troponin 0 Hr.on 01-02-2023 Troponin I.cardiac [Mass/Vol] 4.90 pg/mL Low 10.10-27.10 [facility] Comment on above: Result Comment: The 95% CI (Confidence Interval) PPV (Positive Predictive Value) for myocardial infarction in females is 38 pg/mL, in males 51 pg/mL. The results should be used in conjunction with clinical conditions of myocardial infarction.(Access High Sensitivity Troponin I Instructions For Use, Yvrose Wheaton, September 2017) Performed By: #### 2 603569, 01715132, 9128624, 9543664, 2986260, 41970459, 72600221 ####[facility] [address] [place] [address] XR Chest Single Viewon 01-02 XR Chest Single View Normal [facility] eGFRon 01-02-2023 GFR/1.73 sq M.predicted among non-blacks MDRD (S/P/Bld) [Vol rate/Area] 129 mL/min/1.73 m2 Normal >=59 [facility] Comment on above: Order Comment: Order added by Discern Expert. Result Comment: Sugarcane Planter justin kidney disease could be indicated at eGFR's of less than 60 mL/min/1.73m2. Kidney failure is indicated at less than 15 mL/min/1.73m2. Performed By: #### 2 911882, 65339963, 0665066, 5905656, 7701285, 39971796, 15785990 ####[facility] [address] [place] [address] SARS coronavirus 2 RNAon SARS-CoV-2 (COVID-19) RNA MOISES+probe Ql (Resp) Not detected Normal Not Detected [facility] Comment on above: Order Comment: This assay [...] and has been validated for use at [facility]. Negative results do not preclude COVID-19 infections and should not be used as the sole basis for diagnosis, treatment, or other management decisions. Performed By: #### 2 4323-8 #### CARLTON Barragan ([id number]) [facility] ([facility]) [address] [place] [address] SARS-CoV-2 (COVID-19) RNA NA A+probe Ql (Resp)on 12-16-2022 Interpretation and review of laboratory results Normal [facility] This assay has recei laquita [...] and has been validated for use at [facility]. Negative results do not preclude COVID-19 infections and should not be used as the sole basis for diagnosis, treatment, or other management decisions. [facility] Sars-CoV-2 PCR, Screen Asymp tomaticon 12-16-2022 SARS-CoV-2 (COVID-19) RNA MOISES+probe Ql (Resp) Not detected Not Detected [facility] ACUTE TOXICOLOGY PANEL, BLOO Don 12-15-2022 Acetaminophen [Mass/Vol] ug/mL Normal 10.0-30.0 [facility] Comment on above: Performed By: #### D RUBL #### CARLTON Barragan ([id number]) [facility] ([facility]) [address] [place] [address] 82686 Ethanol [Mass/Vol] mg/dL Normal <=[address] [facility] Comment on above: Performed By: #### D RUBL #### CARLTON Barragan ([id number]) [facility] ([facility]) [address] [place] [address] 97986 Salicylates [Mass/Vol] mg/dL Normal 4-20 [facility] Comment on above: Performed By: #### Sadiq RUBL #### CARLTON Barragan ([id number]) [facility] ([facility]) [address] [place] [address] 38079 CBC W Auto Differential pane l (Bld)on 12-15-2022 Basophils (Bld) [#/Vol] 0.02 x10*3/uL Normal 0.00-0.10 [facility] Comment on above: Result Comment: Auto mated WBC differential has been confirmed by manual smear. Performed By: #### 2 4323-8 #### CARLTON Barragan ([id number]) [facility] ([facility]) [address] [place] [address] 36301 Basophils/100 WBC (Bld) 0.3 % Normal 0.0-2.0 [facility] Comment on above: Performed By: #### 2 4323-8 #### CARLTON Barragan ([id number]) [facility] ([facility]) [address] [place] [address] 33998 Eosinophils (Bld) [#/Vol] 0.08 x10*3/uL Normal 0.00-0.70 [facility] Comment on above: Performed By: #### 2 4323-8 #### CARLTON Barragan ([id number]) [facility] ([facility]) [address] [place] [address] 97303 Eosinophils/100 WBC (Bld) 1.4 % Normal 0.0-6.0 [facility] Comment on above: Performed By: #### 2 4323-8 #### CARLTON Barragan ([id number]) [facility] ([facility]) [address] [place] [address] 85118 Erythrocyte distribution width (RBC) [Ratio] 12.4 % Normal 11.5-14.5 [facility] Comment on above: Performed By: #### 2 4323-8 #### CARLTON Barragan ([id number]) [facility] ([facility]) [address] [place] [address] Hematocrit (Bld) [Volume fraction] 39.4 % Normal 36.0-46.0 [facility] Comment on above: Performed By: #### 2 4323-8 #### CARLTON Barragan ([id number]) [facility] ([facility]) [address] [place] [address] Hemoglobin (Bld) [Mass/Vol] 13.8 g/dL Normal 12.0-16.0 [facility] Comment on above: Performed By: #### 2 432-8 #### CARLTON Barragan ([id number]) [facility] ([facility]) [address] [place] [address] Immature granulocytes (Bld) [#/Vol] 0.02 x10*3/uL Normal 0.00-0.70 [facility] Comment on above: Performed By: #### 2 432-8 #### CARLTON Barragan ([id number]) [facility] ([facility]) [address] [place], [place] [id number] Immature granulocytes/100 WBC (Bld) 0.3 % Normal 0.0-0.9 [facility] Comment on above: Result Comment: Jennifer ture Granulocyte Count (IG) includes promyelocytes, myelocytes and metamyelocytes but does not include bands. Percent differential counts (%) should be interpreted in the context of the absolute cell counts (cells/UL). Performed By: #### 2 4323-8 #### CARLTON Barragan ([id number]) [facility] ([facility]) [address] [place] [address] Lymphocytes (Bld) [#/Vol] 1.92 x10*3/uL Normal 1.20-4.80 [facility] Comment on above: Performed By: #### 2 4323-8 #### CARLTON Barragan ([id number]) [facility] ([facility]) [address] [place] [address] 82513 Lymphocytes/100 WBC (Bld) 32.6 % Normal 13.0-44.0 [facility] Comment on above: Performed By: #### 2 4323-8 #### CARLTON Barragan ([id number]) [facility] ([facility]) [address] [place] [address] 76601 MCH (RBC) [Entitic mass] 34.4 pg High 26.0-34.0 [facility] Comment on above: Performed By: #### 2 4323-8 #### CARLTON Barraagn ([id number]) [facility] ([facility]) [address] [place] [address] 97401 MCHC (RBC) [Mass/Vol] 35.0 g/dL Normal 32.0-36.0 [facility] Comment on above: Performed By: #### 2 4323-8 #### CARLTON Barragan ([id number]) [facility] ([facility]) [address] [place] [address] 63452 MCV (RBC) [Entitic vol] 98 fL Normal 80-100 [facility] Comment on above: Performed By: #### 2 4323-8 #### CARLTON Barragan ([id number]) [facility] ([facility]) [address] [place] [address] 50383 Monocytes (Bld) [#/Vol] 0.22 x10*3/uL Normal 0.10-1.00 [facility] Comment on above: Performed By: #### 2 4323-8 #### CARLTON Barragan ([id number]) [facility] ([facility]) [address] [place] [address] 13121 Monocytes/100 WBC (Bld) 3.7 % Normal 2.0-10.0 [facility] Comment on above: Performed By: #### 2 4323-8 #### CARLTON Barragan ([id number]) [facility] ([facility]) [address] [place] [address] 62077 Neutrophils (Bld) [#/Vol] 3.63 x10*3/uL Normal 1.20-7.70 [facility] Comment on above: Result Comment: Perc ent differential counts (%) should be interpreted in the context of the absolute cell counts (cells/uL). Performed By: #### 2 4323-8 #### CARLTON Barragan ([id number]) [facility] ([facility]) [address] [place] [address] 46827 Neutrophils/100 WBC (Bld) 61.7 % Normal 40.0-80.0 [facility] Comment on above: Performed By: #### 2 4323-8 #### CARLTON Barragan ([id number]) [facility] ([facility]) [address] [place] [address] Nucleated RBC/100 WBC (Bld) [Ratio] 0.0 /100 WBCs Normal 0.0-0.0 [facility] Comment on above: Performed By: #### 2 4323-8 #### CARLTON Barragan ([id number]) [facility] ([facility]) [address] [place] [address] 36276 Platelets (Bld) [#/Vol] 89 x10*3/uL Low 150-450 [facility] Comment on above: Result Comment: Plat elet count verified by smear review. Performed By: #### 2 4323-8 #### CARLTON Barragan ([id number]) [facility] ([facility]) [address] [place] [address] 05160 RBC (Bld) [#/Vol] 4.01 x10*6/uL Normal 4.00-5.20 [facility] Comment on above: Performed By: #### 2 4323-8 #### CARLTON Barragan ([id number]) [facility] ([facility]) [address] [place] [address] 37594 WBC (Bld) [#/Vol] 5.9 x10*3/uL Normal 4.4-11.3 [facility] Comment on above: Performed By: #### 2 4323-8 #### CARLTON Barragan ([id number]) [facility] ([facility]) [address] [place] [address] 51826 Comprehensive metabolic 2000 panelon 11-04-2023 Albumin BCP dye [Mass/Vol] 4.3 g/dL Normal 3.4-5.0 [facility] Comment on above: Performed By: #### 2 4323-8 #### CARLTON Barragan ([id number]) [facility] ([facility]) [address] [place] [address] 72318 ALP [Catalytic activity/Vol] 131 U/L High 33-110 [facility] Comment on above: Performed By: #### 2 4323-8 #### CARLTON Barragan ([id number]) [facility] ([facility]) [address] [place] [address] 65074 ALT With P-5'-P [Catalytic activity/Vol] 113 U/L High 7-45 [facility] Comment on above: Result Comment: Tran ents treated with Sulfasalazine may generate falsely decreased results for ALT. Performed By: #### 2 4323-8 #### CARLTON Barragan ([id number]) [facility] ([facility]) [address] [place] [address] 54227 Anion gap [Moles/Vol] 11 mmol/L Normal 10-20 [facility] Comment on above: Performed By: #### 2 4323-8 #### CARLTON Barragan ([id number]) [facility] ([facility]) [address] [place] [address] 77946 AST With P-5'-P [Catalytic activity/Vol] 180 U/L High 9-39 [facility] Comment on above: Performed By: #### 2 4323-8 #### CARLTON Barragan ([id number]) [facility] ([facility]) [address] [place] [address] 24036 Bilirubin [Mass/Vol] 1.0 mg/dL Normal 0.0-1.2 [facility] Comment on above: Performed By: #### 2 4323-8 #### CARLTON Barragan ([id number]) [facility] ([facility]) [address] [place] [address] 55681 Calcium [Mass/Vol] 9.9 mg/dL Normal 8.6-10.[address] [facility] Comment on above: Performed By: #### 2 4323-8 #### CARLTON Barragan ([id number]) [facility] ([facility]) [address] [place] [address] 24929 Chloride [Moles/Vol] 99 mmol/L Normal 98-107 [facility] Comment on above: Performed By: #### 2 4323-8 #### CARLTON Barragan ([id number]) [facility] ([facility]) [address] [place] [address] 43640 CO2 [Moles/Vol] 27 mmol/L Normal 21-32 [facility] Comment on above: Performed By: #### 2 4323-8 #### CARLTON Barragan ([id number]) [facility] ([facility]) [address] [place] [address] 98126 Creatinine [Mass/Vol] 0.68 mg/dL Normal 0.50-1.05 [facility] Comment on above: Performed By: #### 2 4323-8 #### CARLTON Barragan ([id number]) [facility] ([facility]) [address] [place] [address] 69928 GFR/1.73 sq M.predicted MDRD (S/P/Bld) [Vol rate/Area] mL/min/{1.73_m2} Normal >60 [facility] Comment on above: Result Comment: Calc ulations of estimated GFR are performed using the 2020 CKD-EPI Study Refit equation without the race variable for the IDMS-Traceable creatinine methods. https://jasn.asnjournals.org/content/early//ASN.214651 9150 Performed By: #### 2 4323-8 #### CARLTON Barragan ([id number]) [facility] ([facility]) [address] [place] [address] 77052 Glucose [Mass/Vol] 81 mg/dL Normal 74-[address] [facility] Comment on above: Performed By: #### 2 4323-8 #### CARLTON Barragan ([id number]) [facility] ([facility]) [address] [place] [address] 09556 Potassium [Moles/Vol] 4.2 mmol/L Normal 3.5-5.3 [facility] Comment on above: Performed By: #### 2 4323-8 #### CARLTON Barragan ([id number]) [facility] ([facility]) [address] [place] [address] 03219 Protein [Mass/Vol] 8.3 g/dL High 6.4-8.[address] [facility] Comment on above: Performed By: #### 2 4323-8 #### CARLTON Barragan ([id number]) [facility] ([facility]) [address] [place] [address] 48201 Sodium [Moles/Vol] 133 mmol/L Low 136-[address] [facility] Comment on above: Performed By: #### 2 4323-8 #### CARLTON Barragan ([id number]) [facility] ([facility]) [address] [place] [address] 51893 Urea nitrogen [Mass/Vol] 10 mg/dL Normal 6-23 [facility] Comment on above: Performed By: #### 2 4323-8 #### CARLTON Barragan ([id number]) [facility] ([facility]) [address] [place] [address] 61007 DRUG SCREEN,URINEon 12-16-19 Amphetamines Screen Ql (U) Negative Normal Presumptive Negative [facility] Comment on above: Order Comment: Drug screen results are presumptive and should not be used to assesscompliance with prescribed medication. Contact the performing [facility] [email or web address]] laboratoryto add-on definitive confirmatory testing if clinically [...] By: #### 2 4323-8 #### CARLTON Barragan ([id number]) [facility] ([facility]) [address] [place] [address] 23049 Barbiturates Screen Ql (U) Positive Abnormal Presumptive Negative [facility] Comment on above: Order Comment: Drug screen results are presumptive and should not be used to assesscompliance with prescribed medication. Contact the performing [facility] [email or web address]] laboratoryto add-on definitive confirmatory testing if clinically [...] By: #### 2 4323-8 #### CARLTON Barragan ([id number]) [facility] ([facility]) [address] [place] [address] 77614 Benzodiazepines Ql (U) Positive Abnormal Presumptive Negative [facility] Comment on above: Order Comment: Drug screen results are presumptive and should not be used to assesscompliance with prescribed medication. Contact the performing [facility] [email or web address]] laboratoryto add-on definitive confirmatory testing if clinically [...] By: #### 2 4323-8 #### CARLTON Barragan ([id number]) [facility] ([facility]) [address] [place] [address] 66299 Benzoylecgonine Screen Ql (U) Negative Normal Presumptive Negative [facility] Comment on above: Order Comment: Drug screen results are presumptive and should not be used to assesscompliance with prescribed medication. Contact the performing [facility] [email or web address]] laboratoryto add-on definitive confirmatory testing if clinically [...] By: #### 2 4323-8 #### CARLTON Barragan ([id number]) [facility] ([facility]) [address] [place] [address] 94016 Cannabinoids Screen Ql (U) Negative Normal Presumptive Negative [facility] Comment on above: Order Comment: Drug screen results are presumptive and should not be used to assesscompliance with prescribed medication. Contact the performing [facility] [email or web address]] laboratoryto add-on definitive confirmatory testing if clinically [...] 50 NG/ML Performed By: #### 2 4323-8 ##Patricia Barragan ([id number]) [facility] ([facility]) [address] [place] [address] 64780 fentaNYL+Norfentanyl Screen Ql (U) Negative Normal Presumptive Negative [facility] Comment on above: Order Comment: Drug screen results are presumptive and should not be used to assesscompliance with prescribed medication. Contact the performing [facility] [email or web address]] laboratoryto add-on definitive confirmatory testing if clinically [...] By: #### 2 4323-8 #### CARLTON Barragan ([id number]) [facility] ([facility]) [address] [place] [address] 75405 Opiates Screen Ql (U) Negative Normal Presum ptive Negative [facility] Comment on above: Order Comment: Drug screen results are presumptive and should not be used to assesscompliance with prescribed medication. Contact the performing [facility] [email or web address]] laboratoryto add-on definitive confirmatory testing if clinically [...] By: #### 2 4323-8 #### CARLTON Barragan ([id number]) [facility] ([facility]) [address] [place] [address] 45654 oxyCODONE+oxyMORphone Screen Ql (U) Negative Normal Presumptive Negative [facility] Comment on above: Order Comment: Drug screen results are presumptive and should not be used to assesscompliance with prescribed medication. Contact the performing [facility] [email or web address]] laboratoryto add-on definitive confirmatory testing if clinically [...] By: #### 2 4323-8 #### CARLTON Barragan ([id number]) [facility] ([facility]) [address] [place] [address] 60587 Phencyclidine Ql (U) Negative Normal Presump tive Negative [facility] Comment on above: Order Comment: Drug screen results are presumptive and should not be used to assesscompliance with prescribed medication. Contact the performing [facility] [email or web address]] laboratoryto add-on definitive confirmatory testing if clinically [...] By: #### 2 4323-8 #### CARLTON Barragan ([id number]) [facility] ([facility]) [address] [place] [address] 20944 Amphetamines Screen Ql (U) Negative Normal Presumptive Negative [facility] Comment on above: Order Comment: Drug screen results are presumptive and should not be used to assesscompliance with prescribed medication. Contact the performing [facility] [email or web address]] laboratoryto add-on definitive confirmatory testing if clinically [...] By: #### 2 4323-8 #### CARLTON Barragan ([id number]) [facility] ([facility]) [address] [place] [address] 00641 Barbiturates Screen Ql (U) Negative Normal Presumptive Negative [facility] Comment on above: Order Comment: Drug screen results are presumptive and should not be used to assesscompliance with prescribed medication. Contact the performing [facility] [email or web address]] laboratoryto add-on definitive confirmatory testing if clinically [...] By: #### 2 4323-8 #### CARLTON Barragan ([id number]) [facility] ([facility]) [address] [place] [address] 32950 Benzodiazepines Ql (U) Positive Abnormal Presumptive Negative [facility] Comment on above: Order Comment: Drug screen results are presumptive and should not be used to assesscompliance with prescribed medication. Contact the performing [facility] [email or web address]] laboratoryto add-on definitive confirmatory testing if clinically [...] By: #### 2 4323-8 #### CARLTON Barragan ([id number]) [facility] ([facility]) [address] [place] [address] 29296 Benzoylecgonine Screen Ql (U) Negative Normal Presumptive Negative [facility] Comment on above: Order Comment: Drug screen results are presumptive and should not be used to assesscompliance with prescribed medication. Contact the performing [facility] [email or web address]] laboratoryto add-on definitive confirmatory testing if clinically [...] By: #### 2 4323-8 #### CARLTON Barragan ([id number]) [facility] ([facility]) [address] [place] [address] Cannabinoids Screen Ql (U) Negative Normal Presumptive Negative [facility] Comment on above: Order Comment: Drug screen results are presumptive and should not be used to assesscompliance with prescribed medication. Contact the performing [facility] [email or web address]] laboratoryto add-on definitive confirmatory testing if clinically [...] By: #### 2 4323-8 #### CARLTON Barragan ([id number]) [facility] ([facility]) [address] [place] [address] fentaNYL+Norfentanyl Screen Ql (U) Negative Normal Presumptive Negative [facility] Comment on above: Order Comment: Drug screen results are presumptive and should not be used to assesscompliance with prescribed medication. Contact the performing [facility] [email or web address]] laboratoryto add-on definitive confirmatory testing if clinically [...] By: #### 2 4323-8 #### CARLTON Barragan ([id number]) [facility] ([facility]) [address] [place] [address] Opiates Screen Ql (U) Negative Normal Presum ptive Negative [facility] Comment on above: Order Comment: Drug screen results are presumptive and should not be used to assesscompliance with prescribed medication. Contact the performing [facility] [email or web address]] laboratoryto add-on definitive confirmatory testing if clinically [...] By: #### 2 4323-8 #### CARLTON Barragan ([id number]) [facility] ([facility]) [address] [place] [address] 02999 oxyCODONE+oxyMORphone Screen Ql (U) Negative Normal Presumptive Negative [facility] Comment on above: Order Comment: Drug screen results are presumptive and should not be used to assesscompliance with prescribed medication. Contact the performing [facility] [email or web address]] laboratoryto add-on definitive confirmatory testing if clinically [...] By: #### 2 4323-8 #### CARLTON Barragan ([id number]) [facility] ([facility]) [address] [place] [address] 28881 Phencyclidine Ql (U) Negative Normal Presump tive Negative [facility] Comment on above: Order Comment: Drug screen results are presumptive and should not be used to assesscompliance with prescribed medication. Contact the performing [facility] [email or web address]] laboratoryto add-on definitive confirmatory testing if clinically [...] By: #### 2 4323-8 #### CARLTON Barragan ([id number]) [facility] ([facility]) [address] [place] [address] 83400 Drug Screen, Urineon 023 Amphetamines Screen Ql (U) Negative Presumptive Negative [facility] Comment on above: CUTOFF LEVEL: 500 NG /ML Cross-reactivity has been reported with high concentrations of the following drugs: buproprion, chloroquine, chlorpromazine, ephedrine, mephentermine, fenfluramine, phentermine, phenylpropanolamine, pseudoephedrine, and propranolol. Barbiturates Screen Ql (U) Positive Abnormal Presumptive Negative [facility] Comment on above: CUTOFF LEVEL: 200 NG /ML Benzodiazepines Ql (U) Positive Abnormal Presumptive Negative [facility] Comment on above: CUTOFF LEVEL: 200 NG /ML Benzoylecgonine Screen Ql (U) Negative Presumptive Negative [facility] Comment on above: CUTOFF LEVEL: 150 NG /ML Cannabinoids Screen Ql (U) Negative Presumptive Negative [facility] Comment on above: CUTOFF LEVEL: 50 NG/ ML fentaNYL+Norfentanyl Screen Ql (U) Negative Presumptive Negative [facility] Comment on above: CUTOFF LEVEL: 5 NG/M L Interpretation and review of laboratory results Abnormal [facility] Opiates Screen Ql (U) Negative Presum ptive Negative [facility] Comment on above: CUTOFF LEVEL: 300 NG /ML The opiate screen does not detect fentanyl, meperidine, or tramadol. Oxycodone is not consistently detected (refer to Oxycodone Screen, Urine result). oxyCODONE+oxyMORphone Screen Ql (U) Negative Presumptive Negative [facility] Comment on above: CUTOFF LEVEL: 100 NG /ML This test will accurately detect both oxycodone and oxymorphone. Phencyclidine Ql (U) Negative Presump tive Negative [facility] Comment on above: CUTOFF LEVEL: 25 NG/ ML Cross-reactivity has been reported with dextromethorphan. Drug screen results are presumptive and should not be used to assess compliance with prescribed medication. Contact the performing [facility] [email or web address]] laboratory to add-on definitive confirmatory testing if [...] be directed to the laboratory medical directors. [facility] HCG ( test) IA.rapi d Ql (U)on 12-15-2022 HCG ( test) Ql (U) Negative Normal NEGATIVE [facility] Comment on above: Performed By: #### 8 0384-1 #### CARLTON Barragan ([id number]) [facility] ([facility]) [address] [place] [address] 37838 RBC shape Nom (Bld)on 2022 RBC morphology finding Nom (Bld) No significant RBC morphology present Normal [facility] Comment on above: Performed By: #### 2 4323-8 #### CARLTON Barragan ([id number]) [facility] ([facility]) [address] [place] [address] 66092 Urinalysis complete panel (U )on 12-15-2022 Appearance (U) Clear Normal Clear [facility] Comment on above: Performed By: #### 2 4356-8 #### CARLTON Barragan ([id number]) [facility] ([facility]) [address] [place] [address] 44874 Bilirubin (U) [Mass/Vol] Negative Normal NEGATIVE [facility] Comment on above: Performed By: #### 2 4356-8 #### CARLTON Barragan ([id number]) [facility] ([facility]) [address] [place] [address] 32740 Color (U) Yellow Normal Straw, Yellow [facility] Comment on above: Performed By: #### 2 4356-8 #### CARLTON Barragan ([id number]) [facility] ([facility]) [address] [place] [address] 80970 Glucose Auto test strip (U) [Mass/Vol] Negative Normal NEGATIVE [facility] Comment on above: Performed By: #### 2 4356-8 #### CARLTON Barragan ([id number]) [facility] ([facility]) [address] [place] [address] 24178 Ketones (U) [Mass/Vol] Negative Normal NEGATIVE [facility] Comment on above: Performed By: #### 2 4356-8 #### CARLTON Barragan ([id number]) [facility] ([facility]) [address] [place] [address] 16994 Leukocyte esterase Auto test strip Ql (U) Negative Normal NEGATIVE [facility] Comment on above: Performed By: #### 2 4356-8 #### CARLTON Barragan ([id number]) [facility] ([facility]) [address] [place] [address] 40642 Nitrite Auto test strip Ql (U) Negative Normal NEGATIVE [facility] Comment on above: Performed By: #### 2 4356-8 #### CARLTNO Barragan ([id number]) [facility] ([facility]) [address] [place] [address] 83952 pH (U) 8.0 [pH] Normal 5.0, 5.5, 6.0, 6.5, 7.0, 7.5, 8.0 [facility] Comment on above: Performed By: #### 2 4356-8 #### CARLTON Barragan ([id number]) [facility] ([facility]) [address] [place] [address] Protein (U) [Mass/Vol] Negative Normal NEGATIVE [facility] Comment on above: Performed By: #### 2 4356-8 #### CARLTON Barragan ([id number]) [facility] ([facility]) [address] [place] [address] RBC (U) [#/Vol] Negative Normal NEGATIVE [facility] Comment on above: Performed By: #### 2 4356-8 #### CARLTON Barragan ([id number]) [facility] ([facility]) [address] [place] [address] Specific gravity (U) [Rel density] 1.006 Normal 1.005-1.035 [facility] Comment on above: Performed By: #### 2 4356-8 #### CARLTON Barragan ([id number]) [facility] ([facility]) [address] [place] [address] Urobilinogen (U) [Mass/Vol] 4.0 mg/dL Normal <2.0 [facility] Comment on above: Result Comment: Some pigments and medications may cause a false positive urobilinogen. Performed By: #### 2 4356-8 #### CARLTON Barragan ([id number]) [facility] ([facility]) [address] [place] [address] Acute Toxicology Panel, Bloo don 12-14-2022 Acetaminophen [Mass/Vol] ug/mL 10.0 - 30.0 ug/mL [facility] Ethanol [Mass/Vol] mg/dL NINF - 10 mg/dL [facility] Interpretation and review of laboratory results Normal [facility] Salicylates [Mass/Vol] mg/dL 4 - 20 mg/dL [facility] Acute hepatitis 2000 panel ( S)on 12-14-2022 HAV IgM Ql (S) Non-Reactive Normal Nonreactive [facility] Comment on above: Result Comment: Biot in interference may cause falsely decreased results. Patients taking a Biotin dose of up to 5 mg/day should refrain from taking Biotin for 24 hours before sample collection. Providers may contact their local laboratory for further information. Performed By: #### 2 4363-4 #### MERLY Barragan ([id number]) [facility] ([facility]) [address] [place] [address] HBV core IgM Ql (S) Non-Reactive Normal Nonreactive Un [facility] Comment on above: Result Comment: Resu lts from patients taking biotin supplements or receiving high-dose biotin therapy should be interpreted with caution due to possible interference with this test. Providers may contact their local laboratory for further information. Performed By: #### 2 4363-4 #### MERLY Barragan ([id number]) [facility] ([facility]) [address] [place] [address] HBV surface Ag IA Ql Non-Reactive Normal Nonreactive U [facility] Comment on above: Result Comment: Biot in interference may cause falsely decreased results. Patients taking a Biotin dose of up to 5 mg/day should refrain from taking Biotin for 24 hours before sample collection. Providers may contact their local laboratory for further information. Performed By: #### 2 4363-4 #### MERLY Barragan ([id number]) [facility] ([facility]) [address] [place] [address] HCV Ab Ql (S) Reactive Abnormal Nonreactive [facility] Comment on above: Result Comment: HCV antibody [...] By: #### 2 4363-4 #### MERLY Barragan ([id number]) [facility] ([facility]) [address] [place], [place] [id number] CBC W Auto Differential pane l (Bld)on 12-14-2022 Basophils (Bld) [#/Vol] 0.02 10*3/uL [facility] Comment on above: Automated WBC differ ential has been confirmed by manual smear. Basophils/100 WBC (Bld) 0.3 % 0.0 - 2.0 % [facility] Eosinophils (Bld) [#/Vol] 0.08 10*3/uL [facility] Eosinophils/100 WBC (Bld) 1.4 % 0.0 - 6.0 % [facility] Erythrocyte distribution width (RBC) [Ratio] 12.4 % 11.5 - 14.5 % [facility] Hematocrit (Bld) [Volume fraction] 39.4 % 36.0 - 46.0 % [facility] Hemoglobin (Bld) [Mass/Vol] 13.8 g/dL 12.0 - 16.0 g/dL [facility] Immature granulocytes (Bld) [#/Vol] 0.02 10*3/uL [facility] Immature granulocytes/100 WBC (Bld) 0.3 % 0.0 - 0.9 % [facility] Comment on above: Immature Granulocyte Count (IG) includes promyelocytes, myelocytes and metamyelocytes but does not include bands. Percent differential counts (%) should be interpreted in the context of the absolute cell counts (cells/UL). Interpretation and review of laboratory results Abnormal [facility] Lymphocytes (Bld) [#/Vol] 1.92 10*3/uL [facility] Lymphocytes/100 WBC (Bld) 32.6 % 13.0 - 44.0 % [facility] MCH (RBC) [Entitic mass] 34.4 pg High 26.0 - 34.0 pg [facility] MCHC (RBC) [Mass/Vol] 35.0 g/dL 32.0 - 36.0 g/dL [facility] MCV (RBC) [Entitic vol] 98 fL 80 - 100 fL [facility] Monocytes (Bld) [#/Vol] 0.22 10*3/uL [facility] Monocytes/100 WBC (Bld) 3.7 % 2.0 - 10.0 % [facility] Neutrophils (Bld) [#/Vol] 3.63 10*3/uL [facility] Comment on above: Percent differential counts (%) should be interpreted in the context of the absolute cell counts (cells/uL). Neutrophils/100 WBC (Bld) 61.7 % 40.0 - 80.0 % [facility] Nucleated RBC/100 WBC (Bld) [Ratio] 0.0 % [facility] Platelets (Bld) [#/Vol] 89 10*3/uL Low [facility] Comment on above: Platelet count verif ied by smear review. RBC (Bld) [#/Vol] 4.01 10*6/uL [facility] WBC (Bld) [#/Vol] 5.9 10*3/uL [facility] Comprehensive metabolic 2000 panelon 12-14-2022 Albumin BCP dye [Mass/Vol] 4.3 g/dL 3.4 - 5.0 g/dL [facility] ALP [Catalytic activity/Vol] 131 U/L High 33 - 110 U/L [facility] ALT With P-5'-P [Catalytic activity/Vol] 113 U/L High 7 - 45 U/L [facility] Comment on above: Patients treated wit h Sulfasalazine may generate falsely decreased results for ALT. Anion gap [Moles/Vol] 11 mmol/L 10 - 2 0 mmol/L [facility] AST With P-5'-P [Catalytic activity/Vol] 180 U/L High 9 - 39 U/L [facility] Bilirubin [Mass/Vol] 1.0 mg/dL 0.0 - 1 .2 mg/dL [facility] Calcium [Mass/Vol] 9.9 mg/dL 8.6 - 10. 3 mg/dL [facility] Chloride [Moles/Vol] 99 mmol/L 98 - 10 7 mmol/L [facility] CO2 [Moles/Vol] 27 mmol/L 21 - 32 mmol/L [facility] Creatinine [Mass/Vol] 0.68 mg/dL 0.50 - 1.05 mg/dL [facility] GFR/1.73 sq M.predicted MDRD (S/P/Bld) [Vol rate/Area] - PINF [facility] Comment on above: Calculations of jerel mated GFR are performed using the 2020 CKD-EPI Study Refit equation without the race variable for the IDMS-Traceable creatinine methods. https://jasn.asnjournals.org/content//ASN.294922 2190 Glucose [Mass/Vol] 81 mg/dL 74 - 99 mg/dL [facility] Interpretation and review of laboratory results Abnormal [facility] Potassium [Moles/Vol] 4.2 mmol/L 3.5 - 5.3 mmol/L [facility] Protein [Mass/Vol] 8.3 g/dL High 6.4 - 8.2 g/dL [facility] Sodium [Moles/Vol] 133 mmol/L Low 136 - 145 mmol/L [facility] Urea nitrogen [Mass/Vol] 10 mg/dL 6 - 23 mg/dL [facility] Albumin BCP dye [Mass/Vol] 4.2 g/dL Normal 3.4-5.0 [facility] Comment on above: Performed By: #### 2 4323-8 #### CARLTON Barragan ([id number]) [facility] ([facility]) [address] [place] [address] ALP [Catalytic activity/Vol] 126 U/L High 33-110 [facility] Comment on above: Performed By: #### 2 4323-8 #### CARLTON Barragan ([id number]) [facility] ([facility]) [address] [place] [address] ALT With P-5'-P [Catalytic activity/Vol] 109 U/L High 7-45 [facility] Comment on above: Result Comment: Tran ents treated with Sulfasalazine may generate falsely decreased results for ALT. Performed By: #### 2 4323-8 #### CARLTON Barragan ([id number]) [facility] ([facility]) [address] [place] [address] 43407 Anion gap [Moles/Vol] 12 mmol/L Normal 10-20 [facility] Comment on above: Performed By: #### 2 4323-8 #### CARLTON Barragan ([id number]) [facility] ([facility]) [address] [place] [address] 65869 AST With P-5'-P [Catalytic activity/Vol] 172 U/L High 9-39 [facility] Comment on above: Result Comment: MODE RATE HEMOLYSIS DETECTED. The result may be falsely elevated due to hemolysis or other interferents. Clinical correlation is recommended. Repeat testing may be considered. Performed By: #### 2 4323-8 #### CARLTON Barragan ([id number]) [facility] ([facility]) [address] [place] [address] 15078 Bilirubin [Mass/Vol] 1.3 mg/dL High 0.0-1.2 [facility] Comment on above: Performed By: #### 2 4323-8 #### CARLTON Barragan ([id number]) [facility] ([facility]) [address] [place] [address] 37978 Calcium [Mass/Vol] 10.0 mg/dL Normal 8.6-10.[address] [facility] Comment on above: Performed By: #### 2 4323-8 #### CARLTON Barragan ([id number]) [facility] ([facility]) [address] [place] [address] 39702 Chloride [Moles/Vol] 100 mmol/L Normal 98-107 [facility] Comment on above: Performed By: #### 2 4323-8 #### CARLTON Barragan ([id number]) [facility] ([facility]) [address] [place] [address] 24163 CO2 [Moles/Vol] 26 mmol/L Normal 21-32 [facility] Comment on above: Performed By: #### 2 4323-8 #### CARLTON Barragan ([id number]) [facility] ([facility]) [address] [place] [address] 47066 Creatinine [Mass/Vol] 0.59 mg/dL Normal 0.50-1.05 [facility] Comment on above: Performed By: #### 2 4323-8 #### CARLTON Barragan ([id number]) [facility] ([facility]) [address] [place] [address] 30409 GFR/1.73 sq M.predicted MDRD (S/P/Bld) [Vol rate/Area] mL/min/{1.73_m2} Normal >60 [facility] Comment on above: Result Comment: Calc ulations of estimated GFR are performed using the 2020 CKD-EPI Study Refit equation without the race variable for the IDMS-Traceable creatinine methods. https://jasn.asnjournals.org/content/early/ASN.911235 1375 Performed By: #### 2 4323-8 #### CARLTON Barragan ([id number]) [facility] ([facility]) [address] [place] [address] 89351 Glucose [Mass/Vol] 104 mg/dL High 74-[address] [facility] Comment on above: Performed By: #### 2 4323-8 #### CARLTON Barragan ([id number]) [facility] ([facility]) [address] [place] [address] 79454 Potassium [Moles/Vol] 5.4 mmol/L High 3.5-5.3 [facility] Comment on above: Result Comment: MODE RATE HEMOLYSIS DETECTED. The result may be falsely elevated due to hemolysis or other interferents. Clinical correlation is recommended. Repeat testing may be considered. Performed By: #### 2 4323-8 #### CARLTON Barragan ([id number]) [facility] ([facility]) [address] [place] [address] 99948 Protein [Mass/Vol] 8.3 g/dL High 6.4-8.[address] [facility] Comment on above: Performed By: #### 2 4323-8 #### CARLTON Barragan ([id number]) [facility] ([facility]) [address] [place] [address] 11772 Sodium [Moles/Vol] 133 mmol/L Low 136-[address] [facility] Comment on above: Performed By: #### 2 4323-8 #### CARLTON Barragan ([id number]) [facility] ([facility]) [address] [place] [address] 47612 Urea nitrogen [Mass/Vol] 10 mg/dL Normal 6-23 [facility] Comment on above: Performed By: #### 2 4323-8 #### CARLTON Barragan ([id number]) [facility] ([facility]) [address] [place] [address] Drug Screen, Urineon 023 Amphetamines Screen Ql (U) Negative Presumptive Negative [facility] Comment on above: CUTOFF LEVEL: 500 NG /ML Cross-reactivity has been reported with high concentrations of the following drugs: buproprion, chloroquine, chlorpromazine, ephedrine, mephentermine, fenfluramine, phentermine, phenylpropanolamine, pseudoephedrine, and propranolol. Barbiturates Screen Ql (U) Negative Presumptive Negative [facility] Comment on above: CUTOFF LEVEL: 200 NG /ML Benzodiazepines Ql (U) Positive Abnormal Presumptive Negative [facility] Comment on above: CUTOFF LEVEL: 200 NG /ML Benzoylecgonine Screen Ql (U) Negative Presumptive Negative [facility] Comment on above: CUTOFF LEVEL: 150 NG /ML Cannabinoids Screen Ql (U) Negative Presumptive Negative [facility] Comment on above: CUTOFF LEVEL: 50 NG/ ML fentaNYL+Norfentanyl Screen Ql (U) Negative Presumptive Negative [facility] Comment on above: CUTOFF LEVEL: 5 NG/M L Interpretation and review of laboratory results Abnormal [facility] Opiates Screen Ql (U) Negative Presum ptive Negative [facility] Comment on above: CUTOFF LEVEL: 300 NG /ML The opiate screen does not detect fentanyl, meperidine, or tramadol. Oxycodone is not consistently detected (refer to Oxycodone Screen, Urine result). oxyCODONE+oxyMORphone Screen Ql (U) Negative Presumptive Negative [facility] Comment on above: CUTOFF LEVEL: 100 NG /ML This test will accurately detect both oxycodone and oxymorphone. Phencyclidine Ql (U) Negative Presump tive Negative [facility] Comment on above: CUTOFF LEVEL: 25 NG/ ML Cross-reactivity has been reported with dextromethorphan. Drug screen results are presumptive and should not be used to assess compliance with prescribed medication. Contact the performing [facility] [[email or web address]] laboratory to add-on definitive confirmatory testing if [...] be directed to the laboratory medical directors. [facility] Ethanolon 12-14-2022 Ethanol [Mass/Vol] mg/dL Normal <=[address] [facility] Comment on above: Result Comment: For medical use only. Performed By: #### 5 643-2 #### CARLTON Barragan ([id number]) [facility] ([facility]) [address] [place] [address] 64648 HCG ( test) IA.rapi d Ql (U)Ordered By: Isabelle Lomeli on 12-14-2022 HCG ( test) Ql (U) Negative NEGATIVE [facility] Interpretation and review of laboratory results Normal [facility] HIV 1+2 Ab+HIV1 p24 Agon HIV 1+2 Ab+HIV1 p24 Ag IA Ql Non-Reactive Normal Nonreactive [facility] Comment on above: Order Comment: HIV A [...] By: #### 5 6888-1 #### MERLY Barragan ([id number]) [facility] ([facility]) [address] [place] [address] No Panel Informationon 12-14 [facility] RBC shape Nom (Bld)on 2022 RBC morphology finding Nom (Bld) No significant RBC morphology present [facility] Reagin Abon 12-14-2022 Reagin Ab RPR Ql (S) Non-Reactive Normal Nonreactive U [facility] Comment on above: Performed By: #### 2 4323-8 #### CARLTON Barragan ([id number]) [facility] ([facility]) [address] [place] [address] 28376 Urinalysis complete panel (U )on 12-14-2022 Appearance (U) Clear Clear [facility] Bilirubin (U) [Mass/Vol] Negative NEGATIVE [facility] Color (U) Yellow Straw, Yellow [facility] Glucose Auto test strip (U) [Mass/Vol] Negative NEGATIVE mg/dL [facility] Interpretation and review of laboratory results Abnormal [facility] Ketones (U) [Mass/Vol] Negative NEGATIVE mg/dL [facility] Leukocyte esterase Auto test strip Ql (U) Negative NEGATIVE [facility] Nitrite Auto test strip Ql (U) Negative NEGATIVE [facility] pH (U) 8.0 [pH] 5.0, 5.5, 6.0, 6.5, 7.0, 7.5, 8.0 [facility] Protein (U) [Mass/Vol] Negative NEGATIVE mg/dL [facility] RBC (U) [#/Vol] Negative NEGATIVE [facility] Specific gravity (U) [Rel density] 1.006 1.005 - 1.035 [facility] Urobilinogen (U) [Mass/Vol] 4.0 mg/dL Abnormal NINF - 2.0 mg/dL [facility] Comment on above: Some pigments and me dications may cause a false positive urobilinogen. [facility] ED Note-Physicianon 12-14-19 ED Note-Physician [id number] [id number] F Normal [facility] BUPRENORPHINE SCREEN TO CONF IRM,URINEon 12-12-2022 Buprenorphine Screen Ql (U) Negative Normal Cutoff 5 [facility] Comment on above: Performed By: #### B UPRS #### [facility] ([place]) ([id number]) [address] [place] [address] Drug screen comment (U) [Interp] See Note Normal [facility] Comment on above: Result Comment: INTE RPRETIVE [...] not valid for forensic use. Performed By: [facility] [address] [place] [address] [employer] Bender: Issa Waller MD, PhD CLIA Number: [id number] Performed By: #### B UPRS #### [facility] ([place]) ([id number]) [address] [place] [address] DRUG SCREEN,URINEon 12-13-19 23 Amphetamines Screen Ql (U) Negative Normal Presumptive Negative [facility] Comment on above: Order Comment: Drug screen results are presumptive and should not be used to assess compliance with prescribed medication. Contact the performing [facility] [email or web address]] laboratory to add-on definitive confirmatory testing if [...] propranolol. Performed By: #### D RUG3 #### CARLTON Barragan ([id number]) [facility] ([facility]) [address] [place] [address] Barbiturates Screen Ql (U) Negative Normal Presumptive Negative [facility] Comment on above: Order Comment: Drug screen results are presumptive and should not be used to assess compliance with prescribed medication. Contact the performing [facility] [email or web address]] laboratory to add-on definitive confirmatory testing if [...] By: #### D RUG3 #### CARLTON Barragan ([id number]) [facility] ([facility]) [address] [place] [address] 41280 Benzodiazepines Ql (U) Negative Normal Presumptive Negative [facility] Comment on above: Order Comment: Drug screen results are presumptive and should not be used to assess compliance with prescribed medication. Contact the performing [facility] [[email or web address]] laboratory to add-on definitive confirmatory testing if [...] By: #### D RUG3 #### CARLTON Barragan ([id number]) [facility] ([facility]) [address] [place] [address] Benzoylecgonine Screen Ql (U) Negative Normal Presumptive Negative [facility] Comment on above: Order Comment: Drug screen results are presumptive and should not be used to assess compliance with prescribed medication. Contact the performing [facility] [email or web address] laboratory to add-on definitive confirmatory testing if [...] By: #### D RUG3 #### CARLTON Barragan ([id number]) [facility] ([facility]) [address] [place] [address] Cannabinoids Screen Ql (U) Negative Normal Presumptive Negative [facility] Comment on above: Order Comment: Drug screen results are presumptive and should not be used to assess compliance with prescribed medication. Contact the performing [facility] [email or web address]] laboratory to add-on definitive confirmatory testing if [...] By: #### D RUG3 #### CARLTON Barragan ([id number]) [facility] ([facility]) [address] [place] [address] 41920 fentaNYL+Norfentanyl Screen Ql (U) Negative Normal Presumptive Negative [facility] Comment on above: Order Comment: Drug screen results are presumptive and should not be used to assess compliance with prescribed medication. Contact the performing [facility] [email or web address]] laboratory to add-on definitive confirmatory testing if [...] By: #### D RUG3 #### CARLTON Barragan ([id number]) [facility] ([facility]) [address] [place] [address] 31300 Opiates Screen Ql (U) Negative Normal Presum ptive Negative [facility] Comment on above: Order Comment: Drug screen results are presumptive and should not be used to assess compliance with prescribed medication. Contact the performing [facility] [email or web address]] laboratory to add-on definitive confirmatory testing if [...] By: #### D RUG3 #### CARLTON Barragan ([id number]) [facility] ([facility]) [address] [place] [address] 03567 oxyCODONE+oxyMORphone Screen Ql (U) Negative Normal Presumptive Negative [facility] Comment on above: Order Comment: Drug screen results are presumptive and should not be used to assess compliance with prescribed medication. Contact the performing [facility] [[email or web address]] laboratory to add-on definitive confirmatory testing if [...] oxycodone and oxymorphone. Performed By: #### Sadiq RUG3 #### CARLTON Barragan ([id number]) [facility] ([facility]) [address] [place] [address] 89465 Phencyclidine Ql (U) Negative Normal Presump tive Negative [facility] Comment on above: Order Comment: Drug screen results are presumptive and should not be used to assess compliance with prescribed medication. Contact the performing [facility] [email or web address]] laboratory to add-on definitive confirmatory testing if [...] By: #### D RUG3 #### CARLTON Barragan ([id number]) [facility] ([facility]) [address] [place] [phone] Gabapentinon 12-12-2022 Gabapentin (U) [Mass/Vol] 242.4 ug/mL Normal [facility] Comment on above: Result Comment: INTE RPRETIVE [...] developed and its performance characteristics determined by [employer]. It has not been cleared or approved by the [place] Food and Drug Administration. This test was performed in a CLIA certified laboratory and is intended for clinical purposes. Performed By: [employer] [address] [place] [id number] Tank Hoop Bender: Issa Waller MD, PhD CLIA Number: [id number] Performed By: #### 2 [id number] #### CARLTON Barragan ([id number]) [facility] ([facility]) [address] [place] [address] Acetaminophen [Mass/volume] in Serum or PlasmaOrdered By: Ari Aguero on 12-11-2022 Acetaminophen [Mass/Vol] 0.3 ug/mL Low 10.0-30.0 [facility] Comment on above: Result Comment: PERF ORMED BY: [place] [address] PATHOLOGIST HEADING REPAIRER LEE CARDOSO M.D. Performed By: #### C MP, LIPASE, CBC #### [facility] [address] [place] [address] Alanine aminotransferase [En zymatic activity/volume] in Serum or PlasmaOrdered By: Ari Aguero on 12-11-2022 ALT [Catalytic activity/Vol] 125 U/L High 7-52 [facility] Comment on above: Performed By: #### C MP, LIPASE, CBC #### [facility] [address] [place] [address] [place] Albumin [Mass/volume] in Ser um or Plasma by Bromocresol green (BCG) dye binding methoOrdered By: Ari Aguero on 12-11-2022 Albumin BCG dye [Mass/Vol] 3.8 g/dL 3.5-5.7 [facility] Alkaline phosphatase [Enzyma tic activity/volume] in Serum or PlasmaOrdered By: Ari Aguero on 12-11-2022 ALP [Catalytic activity/Vol] 132 U/L High 34-104 [facility] Comment on above: Performed By: #### C MP, LIPASE, CBC #### [address] Amphetamine Screen Ql (U)Ord ered By: Ari More on 12-11-2022 Amphetamines Ql (U) Negative Negative [facility] Aspartate aminotransferase [ Enzymatic activity/volume] in Serum or PlasmaOrdered By: Ari Aguero on 12-11-2022 AST [Catalytic activity/Vol] 223 U/L High 13-39 [facility] Comment on above: Performed By: #### C MP, LIPASE, CBC #### [address] Automated basophil %Ordered By: Ari Aguero on 12-11-2022 Basophils/100 WBC (Bld) 0.7 % Normal . [facility] Comment on above: Performed By: #### C MP, LIPASE, CBC #### [address] Automated basophil countOrde red By: Ari Aguero on 12-11-2022 Basophils (Bld) [#/Vol] 0.0 10*3/uL Normal 0.0-0.2 [facility] Comment on above: Result Comment: PERF ORMED BY: [place] [address] PATHOLOGIST HEADING REPAIRER LEE CARDOSO M.D. Performed By: #### C MP, LIPASE, CBC #### [address] Automated blood monocyte cou ntOrdered By: Ari Aguero on 12-11-2022 Monocytes (Bld) [#/Vol] 0.2 10*3/uL Normal 0.0-0.8 [facility] Comment on above: Performed By: #### C MP, LIPASE, CBC #### [address] Automated eosinophil %Ordere d By: Ari Aguero on 12-11-2022 Eosinophils/100 WBC (Bld) 0.8 % Normal . [facility] Comment on above: Performed By: #### C MP, LIPASE, CBC #### [address] Automated eosinophil countOr dered By: Ari Aguero on 12-11-2022 Eosinophils (Bld) [#/Vol] 0.0 10*3/uL Normal 0.0-0.45 [facility] Comment on above: Performed By: #### C MP, LIPASE, CBC #### [address] Automated monocyte %Ordered By: Ari Aguero on 12-11-2022 Monocytes/100 WBC (Bld) 5.9 % Normal . [facility] Comment on above: Performed By: #### C MP, LIPASE, CBC #### [address] Automated neutrophil %Ordere d By: Ari Aguero on 12-11-2022 Neutrophils/100 WBC (Bld) 42.1 % Normal . [facility] Comment on above: Performed By: #### C MP, LIPASE, CBC #### [address] Automated urine color determ inationOrdered By: Ari Aguero on 12-11-2022 Color (U) Yellow Normal Yellow [facility] Comment on above: Order Comment: Name Collection Type:: Clean-Voided Midstream Performed By: #### E ODALIS, MG, CMP, CBC #### [address] Barbiturates [Presence] in U rine by Screen methodOrdered By: Ari Aguero on 12-11-2022 Barbiturates Screen Ql (U) Negative Negative [facility] Benzodiazepines Screen Ql (U )Ordered By: Ari Aguero on 12-11-2022 Benzodiazepines Ql (U) Negative Negative [facility] Benzoylecgonine [Presence] i n Urine by Screen methodOrdered By: Ari Aguero on 12-11-2022 Benzoylecgonine Screen Ql (U) Negative Negative [facility] Bilirubin Test strip Ql (U)O rdered By: Ari Aguero on 12-11-2022 Bilirubin Ql (U) Negative Negative [facility] Bilirubin.total [Mass/volume ] in Serum or PlasmaOrdered By: Ari Aguero on 12-11-2022 Bilirubin [Mass/Vol] 0.5 mg/dL Normal 0.3-1.0 [facility] Comment on above: Performed By: #### C MP, LIPASE, CBC #### [facility] [address] [place] [address] [place] Calcium [Mass/volume] in Ser um or PlasmaOrdered By: Ari Aguero on 12-11-2022 Calcium [Mass/Vol] 8.5 mg/dL Low 8.6-10.3 [facility] Comment on above: Performed By: #### C MP, LIPASE, CBC #### [address] Cannabinoids [Presence] in U rine by Screen methodOrdered By: Ari Aguero on 12-11-2022 Cannabinoids Screen Ql (U) Negative Negative [facility] Comment on above: These are unconfirme d results and should not be used for legal purposes. Drug Cut-Off Concentration: AMPH 1000 ng/mL JANELL 200 ng/mL JAMES 200 ng/mL COCM 300 ng/mL OP 300 ng/mL PCP 25 ng/mL THC 20 ng/mL Carbon dioxide, total [Moles /volume] in Serum or PlasmaOrdered By: Ari Aguero on 12-11-2022 CO2 [Moles/Vol] 23.7 mmol/L Normal 21.0-31.0 [facility] Comment on above: Performed By: #### C MP, LIPASE, CBC #### [facility] [address] [place] [address] [place] Chloride [Moles/volume] in S marbella or PlasmaOrdered By: Ari Aguero on 12-11-2022 Chloride [Moles/Vol] 109 mmol/L High 98-107 [facility] Comment on above: Performed By: #### C MP, LIPASE, CBC #### [facility] [address] [place] [address] [place] Complete Blood Count Auto Di ffon 10-31-2023 Mean Corpuscular HGB Conc 33.5 g/dL Normal 32.0-35.0 [facility] Comment on above: Performed By: #### C MP, LIPASE, CBC #### [place] [address] [place] Monocytes/100 WBC (Bld) 18.99 % Normal 0.00-20.00 [facility] Comment on above: Performed By: #### C MP, LIPASE, CBC #### [address] NRBC% 0.3 /100{WBC} Normal 0-0.5 [facility] Comment on above: Performed By: #### C MP, LIPASE, CBC #### [address] Comprehensive Metabolic Pane mary beth 12-11-2022 Albumin [Mass/Vol] 3.8 g/dL Normal 3.5-5.7 [facility] Comment on above: Performed By: #### C MP, LIPASE, CBC #### [place] [address] [place] Creatinine Clr Calc Pharmacy 165.10 Normal [facility] Comment on above: Result Comment: PERF ORMED BY: [place] [address] PATHOLOGIST HEADING REPAIRER LEE CARDOSO M.D. Performed By: #### C MP, LIPASE, CBC #### [place] [address] [place] GFR/1.73 sq M.predicted MDRD (S/P/Bld) [Vol rate/Area] mL/min/{1.73_m2} Normal [facility] Comment on above: Performed By: #### C MP, LIPASE, CBC #### [place] [address] [place] Creatinine [Mass/volume] in Serum or PlasmaOrdered By: Ari Aguero on 12-11-2022 Creatinine [Mass/Vol] 0.51 mg/dL Low 0.60-1.20 [facility] Comment on above: Performed By: #### C MP, LIPASE, CBC #### [address] Discharge Instructionson Discharge Instructions [id number] Normal [facility] Drug Screen,Urineon 12-12-19 Amphetamine Screen,Urine Negative Normal Negative [facility] Comment on above: Performed By: #### C MP, LIPASE, CBC #### [address] Barbiturate Screen,Urine Negative Normal Negative [facility] Comment on above: Performed By: #### C MP, LIPASE, CBC #### [address] Benzodiazepines Screen,Urine Negative Normal Negative [facility] Comment on above: Performed By: #### C MP, LIPASE, CBC #### [address] Cannabinoid Screen,Urine Negative Normal Negative [facility] Comment on above: Result Comment: Thes e are unconfirmed results and should not be used for legal purposes. Drug Cut-Off Concentration: AMPH 1000 ng/mL JANELL 200 ng/mL JAMES 200 ng/mL COCM 300 ng/mL OP 300 ng/mL PCP 25 ng/mL THC 20 ng/mL PERFORMED BY: [place] [address] PATHOLOGIST HEADING REPAIRER LEE CARDOSO M.D. Performed By: #### C MP, LIPASE, CBC #### [address] Cocaine Screen,Urine Negative Normal Negative [facility] Comment on above: Performed By: #### C MP, LIPASE, CBC #### [address] Opiate Screen,Urine Negative Normal Negative [facility] Comment on above: Performed By: #### C MP, LIPASE, CBC #### [address] Phencyclidine Screen,Urine Negative Normal Negative [facility] Comment on above: Performed By: #### C MP, LIPASE, CBC #### [facility] [address] [place] [address] [place] Erythrocyte distribution wid th [Ratio] by Automated countOrdered By: Ari Aguero on 12-11-2022 Erythrocyte distribution width (RBC) [Ratio] 14.3 % Normal 11.9-15.3 [facility] Comment on above: Performed By: #### C MP, LIPASE, CBC #### [facility] [address] [place] [address] [place] Erythrocytes [#/volume] in B lood by Automated countOrdered By: Ari Aguero on 12-11-2022 RBC (Bld) [#/Vol] 4.06 10*6/uL Normal 3.60-5.[address] [facility] Comment on above: Performed By: #### C MP, LIPASE, CBC #### [place] [address] [place] Ethanol [Mass/volume] in Ser um or PlasmaOrdered By: Ari Aguero on 12-11-2022 Ethanol [Mass/Vol] 287 mg/dL Normal [facility] Comment on above: Performed By: #### C MP, LIPASE, CBC #### [address] Ethanol [Mass/Vol] 0.287 % [facility] Ethyl Alcohol Profileon 11-13 Percent Ethanol 0.287 % Normal [facility] Comment on above: Result Comment: PERF ORMED BY: [place] [address] PATHOLOGIST HEADING REPAIRER LEE CARDOSO M.D. Performed By: #### C MP, LIPASE, CBC #### [place] [address] [place] Glucose [Mass/volume] in Ser um or PlasmaOrdered By: Ari Aguero on 12-11-2022 Glucose [Mass/Vol] 93 mg/dL Normal 70-100 [facility] Comment on above: ADA recommended refe rence rangeRandom Glucose Reference Range is dependent on time and content of last meal. Glucose of more than 200 mg/dL in a nonstressed, ambulatory subject supports the diagnosis of Diabetes Mellitus. Result Comment: [place] om Glucose Reference Range is dependent on time and content of last meal. Glucose of more than 200 mg/dL in a nonstressed, ambulatory subject supports the diagnosis of Diabetes Mellitus. ADA recommended reference range Performed By: #### C MP, LIPASE, CBC #### [address] HCG ( test) [place].rapi d Ql (U)Ordered By: Ari Aguero on 12-11-2022 HCG ( test) Ql (U) Negative [facility] HCG,Urineon 12-11-2022 Beta HCG ( test) Ql (U) Negative Normal [facility] Comment on above: Order Comment: Name Collection Type:: Clean-Voided Midstream Result Comment: PERF ORMED BY: [place] [address] PATHOLOGIST HEADING REPAIRER LEE CARDOSO M.D. Performed By: #### E ODALIS, MG, CMP, CBC #### [address] Hematocrit [Volume Fraction] of Blood by Automated countOrdered By: Ari Aguero on 12-11-2022 Hematocrit (Bld) [Volume fraction] 41.0 % Normal 34.0-46.4 [facility] Comment on above: Performed By: #### C MP, LIPASE, CBC #### [address] Hemoglobin [Mass/volume] in BloodOrdered By: Ari Aguero on 12-11-2022 Hemoglobin (Bld) [Mass/Vol] 13.8 g/dL Normal 11.8-15.4 [facility] Comment on above: Performed By: #### C MP, LIPASE, CBC #### [address] Ketones Auto test strip (U) [Mass/Vol]Ordered By: Ari Aguero on 10-31-2023 Ketones (U) [Mass/Vol] Negative Negative [facility] Leukocytes [#/volume] correc jose for nucleated erythrocytes in Blood by Automated counOrdered By: Ari Aguero on 12-11-2022 WBC corrected for nucl RBC Auto (Bld) [#/Vol] 3.7 10*3/uL 3.8-11.6 [facility] Leukocytes [#/volume] in Blo od by Automated countOrdered By: Ari Aguero on 12-11-2022 WBC (Bld) [#/Vol] 3.7 10*3/uL Low 3.8-11.6 [facility] Comment on above: Performed By: #### C MP, LIPASE, CBC #### [address] Lymphocytes [#/volume] in Bl ood by Automated countOrdered By: Ari Aguero on 12-11-2022 Lymphocytes (Bld) [#/Vol] 1.9 10*3/uL Normal 1.00-4.8 [facility] Comment on above: Performed By: #### C MP, LIPASE, CBC #### [address] Lymphocytes/100 leukocytes i n Blood by Automated countOrdered By: Ari Aguero on 12-11-2022 Lymphocytes/100 WBC (Bld) 50.5 % Normal . [facility] Comment on above: Performed By: #### C MP, LIPASE, CBC #### [facility] [address] [place] [address] MCH [Entitic mass] by Automa jose countOrdered By: Ari Aguero on 12-11-2022 MCH (RBC) [Entitic mass] 33.9 pg Normal 24.7-34.3 [facility] Comment on above: Performed By: #### C MP, LIPASE, CBC #### [address] MCHC Auto (RBC) [Mass/Vol]Or dered By: Ari Aguero on 12-11-2022 MCHC (RBC) [Mass/Vol] 33.5 g/dL 32.0-35.0 [facility] MCV [Entitic volume] by Auto mated countOrdered By: Ari Aguero on 12-11-2022 MCV (RBC) [Entitic vol] 101.1 fL High 80-100 [facility] Comment on above: Performed By: #### C MP, LIPASE, CBC #### [facility] [address] Monocyte distribution width [Entitic volume] in Blood by AutomatedOrdered By: Ari Aguero on 12-11-2022 Monocyte distribution width Auto (Bld) [Entitic vol] 18.99 % 0.00-20.00 [facility] Neutrophils [#/volume] in Bl ood by Automated countOrdered By: Ari Aguero on 12-11-2022 Neutrophils (Bld) [#/Vol] 1.6 10*3/uL Low 1.8-7.7 [facility] Comment on above: Performed By: #### C MP, LIPASE, CBC #### [facility] [address] Nitrite Test strip Ql (U)Ord ered By: Ari Aguero on 12-11-2022 Nitrite Ql (U) Negative Negative [facility] No Panel InformationOrdered By: Ari Aguero on 12-11-2022 Estimated GFR (CKD-EPI) > 60.0 mL/Min [facility] Creatinine Clearance (Chem 165.10 [facility] Nucleated erythrocytes [Pres ence] in Blood by Automated countOrdered By: Ari Aguero on 12-11-2022 Nucleated RBC Auto Ql (Bld) 0.3 /100{WBC} 0-0.5 [facility] Opiates [Presence] in Urine by Screen methodOrdered By: Ari Aguero on 12-11-2022 Opiates Screen Ql (U) Negative Negative [facility] Phencyclidine Screen Ql (U)O rdered By: Ari Aguero on 12-11-2022 Phencyclidine Ql (U) Negative Negative [facility] Platelet mean volume [Entiti c volume] in Blood by Automated countOrdered By: Ari Aguero on 12-11-2022 Platelet mean volume (Bld) [Entitic vol] 9.0 fL Normal 6.3-10.7 [facility] Comment on above: Performed By: #### C MP, LIPASE, CBC #### [facility] [address] [place] [address] [place] Platelets [#/volume] in Bloo d by Automated countOrdered By: Ari Aguero on 12-11-2022 Platelets (Bld) [#/Vol] 103 10*3/uL Low 150-450 [facility] Comment on above: Performed By: #### C MP, LIPASE, CBC #### [place] [address] [place] Potassium [Moles/volume] in Serum or PlasmaOrdered By: Ari Aguero on 12-11-2022 Potassium [Moles/Vol] 4.0 mmol/L Normal 3.5-5.1 [facility] Comment on above: Performed By: #### C MP, LIPASE, CBC #### [address] Protein Auto test strip (U) [Mass/Vol]Ordered By: Ari Aguero on 12-11-2022 Protein (U) [Mass/Vol] Negative Negative [facility] Protein [Mass/volume] in Ser um or PlasmaOrdered By: Ari Aguero on 12-11-2022 Protein [Mass/Vol] 7.0 g/dL Normal 6.4-8.9 [facility] Comment on above: Performed By: #### C MP, LIPASE, CBC #### [place] [address] [place] Salicylateon 12-11-2022 Salicylate < 1.5 Low 15.0-30.0 [facility] Comment on above: Result Comment: Tran ents treated with Sulfasalazine may generate a false high result for Salicylate. Performed By: #### C MP, LIPASE, CBC #### [place] [address] [place] Salicylates [Mass/volume] in Serum or PlasmaOrdered By: Ari Aguero on 12-11-2022 Salicylates [Mass/Vol] mg/dL 15.0-30.0 [facility] Comment on above: Patients treated wit h Sulfasalazine may generate a false high result for Salicylate. Serum globulin measurement b y calculation (mass/volume)Ordered By: Ari Aguero on 12-11-2022 Globulin (S) [Mass/Vol] 3.2 g/dL Normal [facility] Comment on above: Performed By: #### C MP, LIPASE, CBC #### [address] Serum or plasma albumin/glob ulin mass ratioOrdered By: Ari Aguero on 12-11-2022 Albumin/Globulin [Mass ratio] 1.2 {ratio} [facility] Comment on above: Performed By: #### C MP, LIPASE, CBC #### [address] Serum or plasma anion gap de terminationOrdered By: Ari Aguero on 12-11-2022 Anion gap [Moles/Vol] 13.3 mmol/L Normal 6.0-15.0 [facility] Comment on above: Performed By: #### C MP, LIPASE, CBC #### [address] Sodium [Moles/volume] in Ser um or PlasmaOrdered By: Ari Aguero on 12-11-2022 Sodium [Moles/Vol] 142 mmol/L Normal 136-145 [facility] Comment on above: Performed By: #### C MP, LIPASE, CBC #### [address] Specific gravity Auto test s trip (U) [Rel density]Ordered By: Ari Aguero on 12-11-2022 Specific gravity (U) [Rel density] 1.011 1.001-1.030 [facility] Urea nitrogen [Mass/volume] in Serum or PlasmaOrdered By: Ari Aguero on 12-11-2022 Urea nitrogen [Mass/Vol] 7 mg/dL Normal 7-25 [facility] Comment on above: Performed By: #### C MP, LIPASE, CBC #### [address] Urinalysison 12-11-2022 Appearance (U) Clear Normal Clear [facility] Comment on above: Order Comment: Name Collection Type:: Clean-Voided Midstream Performed By: #### E ODALIS, MG, CMP, CBC #### [address] Bilirubin,Urine Negative Normal Negative [facility] Comment on above: Order Comment: Name Collection Type:: Clean-Voided Midstream Performed By: #### E ODALIS, MG, CMP, CBC #### [address] Glucose Ql (U) Normal Normal Normal [facility] Comment on above: Order Comment: Name Collection Type:: Clean-Voided Midstream Performed By: #### E ODALIS, MG, CMP, CBC #### [address] Ketones Ql (U) Negative Normal Negative [facility] Comment on above: Order Comment: Name Collection Type:: Clean-Voided Midstream Performed By: #### E ODALIS, MG, CMP, CBC #### [address] Leukocyte esterase Test strip Ql (U) Negative Normal Negative [facility] Comment on above: Order Comment: Name Collection Type:: Clean-Voided Midstream Performed By: #### E ODALIS, MG, CMP, CBC #### [place] [address] [place] Nitrite,Urine Negative Normal Negative [facility] Comment on above: Order Comment: Name Collection Type:: Clean-Voided Midstream Performed By: #### E ODALIS, MG, CMP, CBC #### [place] [address] [place] Occult Blood,Urine Negative Normal Negative [facility] Comment on above: Order Comment: Name Collection Type:: Clean-Voided Midstream Performed By: #### E ODALIS, MG, CMP, CBC #### [place] [address] [place] Protein,Urine Negative Normal Negative [facility] Comment on above: Order Comment: Name Collection Type:: Clean-Voided Midstream Performed By: #### E ODALIS, MG, CMP, CBC #### [address] Specificy [place],Urine 1.011 Normal 1.001-1.030 [facility] Comment on above: Order Comment: Name Collection Type:: Clean-Voided Midstream Performed By: #### E ODALIS, MG, CMP, CBC #### [address] Urobilinogen,Urine Normal Normal Normal [facility] Comment on above: Order Comment: Name Collection Type:: Clean-Voided Midstream Performed By: #### E ODALIS, MG, CMP, CBC #### [address] Urine clarity by refractomet ry automatedOrdered By: Ari Aguero on 12-11-2022 Clarity Refractometry automated (U) Clear Clear [facility] Urine glucose measurement by automated test strip (mass/volume)Ordered By: Ari Aguero on 12-11-2022 Glucose Auto test strip (U) [Mass/Vol] Normal mg/dL Normal [facility] Urine hemoglobin detection b y automated test stripOrdered By: Ari Aguero on 12-11-2022 Hemoglobin Auto test strip Ql (U) Negative Negative [facility] Urine leukocyte esterase det ection by automated test stripOrdered By: Ari Aguero on 12-11-2022 Leukocyte esterase Auto test strip Ql (U) Negative Negative [facility] Urine pH measurement by auto mated test stripOrdered By: Ari Aguero on 12-11-2022 pH (U) 6.0 [pH] Normal 5.0-9.0 [facility] Comment on above: Order Comment: Name Collection Type:: Clean-Voided Midstream Performed By: #### E ODALIS, MG, CMP, CBC #### [place] [id number] [place] Urobilinogen Auto test strip (U) [Mass/Vol]Ordered By: Ari Aguero on 12-11-2022 Urobilinogen (U) [Mass/Vol] Normal mg/dL Normal [facility] Vaccinationson 12-11-2022 Vaccinations [id number] FF Normal [facility] Comment on above: Other Comment: wrong subject Valuables Checkliston 2022 Valuables Checklist [id number]#[id number] FF Normal [facility] Auto Diffon 12-10-2022 Basophils/100 WBC (Bld) 2.2 % High 0.0-2.0 [facility] Comment on above: Order Comment: Order Added by Discern Expert. Performed By: #### 2 745367, 60879691, 40399553, 1823796, 2968297, 21099516, 45227106, 1539695, 0748440, 1914236 ####[facility] [address] [place] [address] Basophils/Leukocytes Auto (Bld) [Pure # fraction] 0.1 E9/L Normal 0.0-0.2 [facility] Comment on above: Order Comment: Order Added by Discern Expert. Performed By: #### 2 835363, 15777920, 24894557, 2148056, 9219257, 00902987, 35270811, 8592479, 5112450, 0464570 ####[facility] [address] [place] [address] Eosinophils/100 WBC (Bld) 1.5 % Normal 0.0-8.0 [facility] Comment on above: Order Comment: Order Added by Discern Expert. Performed By: #### 2 932403, 79922870, 50133060, 8051233, 6607055, 95280235, 23678260, 5932208, 8012602, 1522460 ####[facility] [address] [place] [address] Eosinophils/Leukocyte s Auto (Bld) [Pure # fraction] 0.1 E9/L Normal 0.0-0.5 [facility] Comment on above: Order Comment: Order Added by Discern Expert. Performed By: #### 2 003437, 20048632, 68362216, 1649838, 7012796, 79382574, 75247297, 3163912, 5435857, 4819995 ####[facility] [address] [place] [address] Lymphocytes/100 WBC (Bld) 52.9 % High 14.0-50.0 [facility] Comment on above: Order Comment: Order Added by Discern Expert. Performed By: #### 2 339784, 51476513, 78306391, 2715295, 9593848, 30281450, 27446250, 3433563, 2197192, 9625746 ####[place] [place] [address] Lymphocytes/Leukocyte s Auto (Bld) [Pure # fraction] 2.3 E9/L Normal 1.0-4.0 [facility] Comment on above: Order Comment: Order Added by Discern Expert. Performed By: #### 2 150456, 99177039, 58025343, 6100964, 0299871, 42418220, 66604183, 0096129, 0113977, 0185304 ####[address] [place] [address] Monocytes/100 WBC (Bld) 6.7 % Normal 4.0-14.0 [facility] Comment on above: Order Comment: Order Added by Discern Expert. Performed By: #### 2 897507, 51800848, 01367630, 3333227, 3870104, 50420880, 01565961, 6611941, 1985309, 8881738 ####[address] [place] [address] Monocytes/Leukocytes Auto (Bld) [Pure # fraction] 0.3 E9/L Normal 0.2-1.0 [facility] Comment on above: Order Comment: Order Added by Discern Expert. Performed By: #### 2 305412, 63092002, 27442572, 1565836, 1499284, 85591579, 26697843, 5012980, 4879673, 4361385 ####[facility] [address] [place] [address] Neutrophils/100 WBC (Bld) 36.7 % Normal 36.0-75.0 [facility] Comment on above: Order Comment: Order Added by Discern Expert. Performed By: #### 2 391111, 15287088, 00468241, 1664175, 3833581, 07582274, 25744974, 5320099, 3610915, 8854506 ####[facility] [address] [place] [address] Neutrophils/Leukocyte s Auto (Bld) [Pure # fraction] 1.6 E9/L Low 2.0-7.5 [facility] Comment on above: Order Comment: Order Added by Discern Expert. Performed By: #### 2 499404, 60608377, 14540774, 1869782, 6785968, 09812522, 71056179, 4475871, 5704562, 1631739 ####[facility] [address] [place] [address] B hCG Qualon 12-10-2022 Beta hCG Ql Negative Normal [facility] Comment on above: Performed By: #### 2 301570, 59257257, 09436383, 7742200, 9961008, 55576723, 73130267, 8621275, 1076988, 2110532 ####[facility] [address] [place] [address] BMPon 12-10-2022 Creatinine [Mass/Vol] 0.6 mg/dL Normal 0.5-1.3 [facility] Comment on above: Performed By: #### 2 473559, 85302351, 92452841, 3319692, 0042525, 61756600, 06116083, 3037075, 7965844, 0838758 ####[facility] [address] [place] [address] Urea nitrogen [Mass/Vol] 6 mg/dL Normal 5-21 [facility] Comment on above: Performed By: #### 2 022802, 84599987, 19946532, 3474781, 9774662, 71720973, 67085846, 9757167, 1224941, 2534714 ####[facility] [address] [place] [address] Urea nitrogen/Creatinine [Mass ratio] 10 No Units Normal 10-20 [facility] Comment on above: Performed By: #### 2 654322, 39828020, 05897760, 3582643, 4357978, 84955465, 06671702, 9949308, 1944389, 2739856 ####[facility] [address] [place] [address] Anion gap [Moles/Vol] 14 mmol/L Normal 6-16 [facility] Comment on above: Performed By: #### 2 809511, 11316243, 54937621, 8686496, 3035224, 42829619, 66848894, 7341784, 1499829, 6017633 ####[facility] [address] [place] [address] Calcium [Mass/Vol] 8.8 mg/dL Low 8.9-11.1 [facility] Comment on above: Performed By: #### 2 630129, 70775112, 13004261, 7065064, 2222081, 74842645, 66496092, 8770185, 5755757, 2756475 ####[facility] [address] [place] [address] Chloride [Moles/Vol] 104 mmol/L Normal 101-111 [facility] Comment on above: Performed By: #### 2 668136, 17057999, 30893411, 5260765, 9163270, 82809163, 82015467, 4788640, 6133216, 5483088 ####[facility] [address] [place] [address] CO2 [Moles/Vol] 25 mmol/L Normal 21-31 [facility] Comment on above: Performed By: #### 2 400490, 07347860, 83877613, 3921890, 1300869, 02540967, 58923227, 4110075, 5971303, 0088336 ####[facility] [address] [place] [address] Glucose [Mass/Vol] 92 mg/dL Normal 55-199 [facility] Comment on above: Result Comment: If t his glucose result represents a fasting glucose, interpretation should refer to the following reference range: 55-99 mg/dL Performed By: #### 2 531190, 27181981, 10520888, 8643208, 4019756, 40187880, 15278844, 6318887, 6682892, 5298245 ####[facility] [address] [place] [address] Potassium [Moles/Vol] 3.9 mmol/L Normal 3.5-5.3 [facility] Comment on above: Performed By: #### 2 066836, 27721489, 85802431, 8689389, 7431578, 64752027, 01219974, 1969817, 0650710, 2585149 ####[facility] [address] [place] [address] Sodium [Moles/Vol] 139 mmol/L Normal 135-145 [facility] Comment on above: Performed By: #### 2 510930, 65100276, 75153332, 7735334, 2352888, 84884051, 47871269, 0378925, 9631822, 7735211 ####[facility] [address] [place] [address] CBC w/ Auto Diffon 3 Erythrocyte distribution width (RBC) [Ratio] 14.6 % High 10.9-14.2 [facility] Comment on above: Performed By: #### 2 016768, 34197982, 78478900, 9734319, 8238924, 81350307, 42393914, 5907901, 0139527, 3296904 ####[facility] [address] [place] [address] Hematocrit (Bld) [Volume fraction] 47.1 % High 34.0-46.0 [facility] Comment on above: Performed By: #### 2 410045, 52913306, 34969671, 8278747, 0491649, 32412348, 84700440, 9779592, 1997680, 9367846 ####[facility] [address] [place] [address] Hemoglobin (Bld) [Mass/Vol] 16.1 g/dL High 12.0-16.0 [facility] Comment on above: Performed By: #### 2 234020, 94678842, 80177816, 6875494, 8354490, 77004374, 56023173, 6526414, 7438035, 1324355 ####[address] [place] [address] MCH (RBC) [Entitic mass] 33.9 pg Normal 27.0-34.0 [facility] Comment on above: Performed By: #### 2 400931, 48109531, 47765567, 1386355, 2264423, 83141883, 66006271, 1327442, 6295091, 6203683 ####[facility] [address] [place] [address] MCHC (RBC) [Mass/Vol] 34.3 g/dL Normal 31.4-36.0 [facility] Comment on above: Performed By: #### 2 377577, 24515673, 93057431, 8967175, 9213446, 73023308, 51740207, 5620916, 5488418, 1156970 ####[address] [place] [address] MCV (RBC) [Entitic vol] 98.9 fL Normal 80.0-100.0 [facility] Comment on above: Performed By: #### 2 411740, 06467780, 03070312, 2071777, 7327086, 43529388, 49920045, 9151914, 0679366, 2433875 ####[facility] [address] [place] [address] Platelet mean volume (Bld) [Entitic vol] 8.2 fL Normal 6.4-10.8 [facility] Comment on above: Performed By: #### 2 524871, 11867336, 28483819, 3604208, 2320495, 46377522, 82034026, 5982768, 3706613, 6485816 ####[facility] [address] [place] [address] Platelets (Bld) [#/Vol] 144.0 E9/L Low 150.0-500.0 [facility] Comment on above: Performed By: #### 2 862234, 83195298, 95945878, 9283148, 3635357, 53763016, 57185741, 3948086, 0036699, 0601201 ####[address] [place] [address] RBC (Bld) [#/Vol] 4.8 E12/L Normal 4.3-5.9 [facility] Comment on above: Performed By: #### 2 537683, 60878830, 81723406, 9907009, 8789811, 62356844, 63797185, 1313519, 0066991, 0970726 ####[address] [place] [address] WBC corrected for nucl RBC Auto (Bld) [#/Vol] 4.4 E9/L Normal 4.0-11.0 [facility] Comment on above: Result Comment: Slid e reviewed by AG. Performed By: #### 2 948617, 09437872, 82561358, 6552638, 5357623, 85650942, 60321006, 1017923, 3802744, 4756284 ####[address] [place] [address] CHEMISTRYOrdered By: SYSTEM SYSTEM on 12-10-2022 Ethanol [...] mL/min/1.73 m2 Normal >=59mL/min/1 .73 m2 [facility] Chem S Comment on above: [...] Sensitivity Troponin I Instructions For Use, [employer] [place], September 2017) Urea nitrogen [Mass/Vol] 6 mg/dL Normal 5 - 21 mg/dL [facility] Remisol Urea nitrogen/Creatinine [Mass ratio] 10 mg/mg Normal 10 - 20 [facility] COAGULATIONOrdered By: Russell Lorenzo on 12-10-2022 aPTT Coag (PPP) [Time] 42.2 s High 25.1 - 36.5 second(s) [facility] Auto Coag Comment on above: [...] same coagulation reagent and instrumentation as [facility]. Currently there are no coagulation studies available worldwide for children to 14 days, and no normal ranges. Heparin therapeutic range (represented by Anti-Factor Xa activity of 0.2 - 0.4 U/mL) corresponds to PTT of 56.6 - 109.0 sec. INR Coag (PPP) [Relative time] 1.2 {INR} Invalid Interpretation Code [facility] Auto Coag Comment on above: Interpretive Data: I NR results are specifically intended to assess patients stabilized on long-term Anticoagulation therapy suggested INR s Less Intensive Anticoagulation 2.0 3.0 Conventional Range 3.0 4.5 PT Coag (PPP) [Time] 12.8 s High 9.4 - 1 2.5 second(s) [facility] Auto Coag Comment on above: [...] same coagulation reagent and instrumentation as [facility]. Currently there are no coagulation studies available worldwide for children to 14 days, and no normal ranges. Consent for Treatmenton 11-13 Consent for Treatment [id number]#1.00[facility] Consent for Treatment [id number]#1.00[facility] Discharge Instructionson Discharge Instructions [id number]#1.00TIF [facility] ED Clinical Summaryon 2022 ED Clinical Summary Normal [facility]-Nursingon 12-10-2022 ED Note-Nursing Patient belongings t aken from patient after patient asked staff if I can take the Ativan i have in my purse . When purse was taken, vodka, nail serbian remover and mouth wash taken from patient at this time. [facility] ED Note-Physicianon 12-11-19 ED Note-Physician Normal [facility] Comment on above: Result Comment: Elec tronically Signed By: Darren Guzman DO\.br\Date and Time Signed: 12/10/22 21:40 EDT ED Note-Physician Normal [facility] Comment on above: Result Comment: Elec tronically Signed By: Fabricio Gao PA-C\.br\Date and Time Signed: 12/10/22 18:31 EDT\.br\Electronically Co-Signed By: Eric Forbes DO\.br\Date and Time Co-Signed: 12/10/22 18:37 EDT ED Note-Physician Normal [facility] Comment on above: Result Comment: Elec tronically Signed By: Eric Forbes DO\.br\Date and Time Signed: 12/10/22 11:43 EDT ED Patient Education Noteon 12-10-2022 ED Patient Education Note Normal [facility] ED Patient Education Note Normal [facility] ED Patient Summaryon 023 ED Patient Summary Normal [facility] ED Patient Summary Normal [facility] Ethanolon 12-10-2022 Ethanol [Mass/Vol] 327 mg/dL Abnormal <=7 [facility] Comment on above: Result Comment: Crit ical Result verified by repeat analysis\Critical Result S_ETOH:327.0 Called to YON JENKINS AT ER by LEXI DOOLEY And Read Back For Confirmation at: 12/10/2022 18:58:35 Performed By: #### 2 394443 ####[facility] [address] [place] [address] Ethanol [Mass/Vol] 277 mg/dL Abnormal <=7 [facility] Comment on above: Result Comment: Crit ical Result verified by repeat analysis\Critical Result S_ETOH:277.0 Called to MANFRED RAUSCH AT ER by PERICO GOULD And Read Back For Confirmation at: 12/10/2022 09:05:13 Performed By: #### 2 940967 ####[facility] [address] [place] [address] HEMATOLOGYOrdered By: SYSTEM SYSTEM on 12-10-2022 Basophils/100 [...] Result Comment: Slid e reviewed by AG. Hep Func Panelon 12-10-2022 AST [Catalytic activity/Vol] 364 Int._Unit/L High 5-43 [facility] Comment on above: Performed By: #### 2 112593, 81906308, 23297197, 2809788, 5773439, 17623591, 05555892, 8603857, 0444337, 1342437 ####[address] [place] [address] Albumin [Mass/Vol] 4.2 g/dL Normal 3.3-5.0 [facility] Comment on above: Performed By: #### 2 173002, 08594463, 25023781, 0833369, 7341490, 57327188, 50911526, 2949821, 7482457, 2971571 ####[address] [place] [address] Albumin/Globulin (S) [Mass conc ratio] 0.9 Low 1.1-2.2 [facility] Comment on above: Performed By: #### 2 220329, 23425122, 24389955, 0332708, 6290091, 77116078, 81610915, 3127458, 2905322, 5418890 ####[address] [address] ALP [Catalytic activity/Vol] 171 Int._Unit/L High 21-98 [facility] Comment on above: Performed By: #### 2 325466, 30564087, 68125134, 9733989, 1643076, 48062566, 51728888, 9578207, 0316386, 2243805 ####[address] [place] [address] ALT No additional P-5'-P [Catalytic activity/Vol] 192 Int._Unit/L High 6-46 [facility] Comment on above: Performed By: #### 2 267141, 76050178, 63446925, 2267711, 4201530, 99297392, 55461110, 1085739, 6464836, 5094424 ####[address] [place] [address] Bilirubin [Mass/Vol] 0.8 mg/dL Normal 0.0-1.1 [facility] Comment on above: Performed By: #### 2 264213, 55881348, 36257477, 7799047, 9532998, 39044723, 13259601, 7494520, 4196286, 4554754 ####[facility] [address] [place] [address] Bilirubin.direct [Mass/Vol] 0.3 mg/dL Normal 0.1-0.4 [facility] Comment on above: Performed By: #### 2 142181, 28299467, 14232273, 0869503, 2822079, 81702730, 11758820, 5221394, 0459965, 4827146 ####[facility] [address] [place] [address] Bilirubin.indirect [Mass or moles/Vol] 0.5 mg/dL Normal 0.1-0.9 [facility] Comment on above: Performed By: #### 2 660644, 92362069, 86096463, 3989818, 0036971, 00609870, 27034229, 8831732, 3889258, 7522041 ####[facility] [address] [place] [address] Globulin (S) [Mass/Vol] 4.6 g/dL High 1.4-4.0 [facility] Comment on above: Performed By: #### 2 247359, 83990881, 76832285, 3961075, 4042650, 37534969, 84264190, 3794858, 2952438, 2369586 ####[facility] [address] [place] [address] Protein [Mass/Vol] 8.8 g/dL High 6.0-7.8 [facility] Comment on above: Performed By: #### 2 994607, 58963092, 39592579, 5422159, 8198621, 76448893, 12696113, 5729921, 0583742, 4621209 ####[facility] [address] [place] [address] Lipase Levelon 10-30-2023 Lipase [Catalytic activity/Vol] 46 U/L Normal 13-58 [facility] Comment on above: Performed By: #### 2 770505, 15848219, 92252110, 8901400, 1390114, 53545375, 27881918, 6616961, 9410263, 9062708 ####[facility] [address] [place] [address] Magnesiumon 12-10-2022 Magnesium [Mass/Vol] 1.9 mg/dL Normal 1.3-2.4 [facility] Comment on above: Performed By: #### 2 396377, 33048014, 81574598, 9077477, 6803742, 77405475, 73719858, 6621067, 8211248, 6242702 ####[facility] [address] [place] [address] Monitor Recordon 12-10-2022 Monitor Record [id number]#1.00TI FF Normal [facility] PT & PTTon 12-10-2022 aPTT Coag (PPP) [Time] 42.2 second(s) High 25.1-36.5 [facility] Comment on above: Order Comment: Nurse is starting IV and pull labs 12/10/2022 08:12:05 EDT [id number] Result Comment: Para meter 15 days - [...] same coagulation reagent and instrumentation as [facility]. Currently there are no coagulation studies available worldwide for children to 14 days, and no normal ranges. Heparin therapeutic range (represented by Anti-Factor Xa activity of 0.2 - 0.4 U/mL) corresponds to PTT of 56.6 - 109.0 sec. Performed By: #### 2 282117, 30952009, 27592970, 0528767, 5402736, 62460622, 06557416, 6768214, 9286521, 4347676 ####[facility] [address] [place] [address] INR Coag (PPP) [Relative time] 1.2 {INR} Invalid Interpretation Code [facility] Comment on above: Order Comment: Nurse is starting IV and pull labs 12/10/2022 08:12:05 EDT [id number] Result Comment: INR results are specifically intended to assess patients stabilized on long-term Anticoagulation therapy suggested INR?s ?Less Intensive Anticoagulation? 2.0 ? 3.0Conventional Range 3.0 ? 4.5 Performed By: #### 2 352621, 35167996, 58655243, 1956423, 5383698, 43336696, 33815230, 3374252, 5237468, 9582715 ####[facility] [address] [place] [address] PT Coag (PPP) [Time] 12.8 second(s) High 9.4-12.5 [facility] Comment on above: Order Comment: Nurse is starting IV and pull labs 12/10/2022 08:12:05 EDT [id number] Result Comment: 15 d ays - 4 [...] same coagulation reagent and instrumentation as [facility]. Currently there are no coagulation studies available worldwide for children to 14 days, and no normal ranges. Performed By: #### 2 018780, 17888142, 06531318, 1605432, 5599758, 96028724, 80305683, 7584440, 8346179, 3952734 ####[facility] [address] [place] [address] SEROLOGYOrdered By: Annie Lorenzo on 12-10-2022 Beta hCG Ql Negative (12/10/22 8:23 AM) Normal [facility] Man Sero Troponin 0 Hr.on 12-10-2022 Troponin I.cardiac [Mass/Vol] 5.70 pg/mL Low 10.10-27.10 [facility] Comment on above: Result Comment: The 95% CI (Confidence Interval) PPV (Positive Predictive Value) for myocardial infarction in females is 38 pg/mL, in males 51 pg/mL. The results should be used in conjunction with clinical conditions of myocardial infarction.([employer] High Sensitivity Troponin I Instructions For Use, [employer], September 2017) Performed By: #### 2 781321, 03000241, 69160196, 5727291, 2500906, 01341185, 98082343, 7888030, 5041683, 7987268 ####[facility] [address] [place] [address] Troponin 3 Hr.on 12-10-2022 Troponin I.cardiac [Mass/Vol] 6.00 pg/mL Low 10.10-27.10 [facility] Comment on above: Result Comment: The 95% CI (Confidence Interval) PPV (Positive Predictive Value) for myocardial infarction in females is 38 pg/mL, in males 51 pg/mL. The results should be used in conjunction with clinical conditions of myocardial infarction.(Access High Sensitivity Troponin I Instructions For Use, [employer], September 2017) Performed By: #### 1 [id number] ####[facility] [address] [place] [address] U Drug Screenon 12-10-2022 Benzodiazepines Ql (U) Positive Abnormal Negative [facility] Comment on above: Result Comment: No c onfirmation requested by Physican\Results verified by repeat analysis\Unconfirmed by alternate method\Critical Result UD_BENZ:POS Called to CHILO GODOY AT ER by PERICO GOULD And Read Back For Confirmation at: 12/10/2022 11:50:16Negative Cutoff: <200 ng/mL Performed By: #### 2 213064 ####[facility] [address] [place] [address] Amphetamines Screen method >1000 ng/mL Ql (U) Negative Normal Negative [facility] Comment on above: Result Comment: Nega tive Cutoff: <1000 ng/mL Performed By: #### 2 538453 ####[facility] [address] [place] [address] Barbiturates Screen Ql (U) Negative Normal Negative [facility] Comment on above: Result Comment: Nega tive Cutoff: <200 ng/mL Performed By: #### 2 [id number] ####[facility] [address] [place] [address] Cocaine Ql (U) Negative Normal Negative [facility] Comment on above: Result Comment: Nega tive Cutoff: <300 ng/mL Performed By: #### 2 788301 ####[facility] [address] [place] [address] Opiates Screen Ql (U) Negative Normal Negative [facility] Comment on above: Result Comment: Nega tive Cutoff: <300 ng/mL Performed By: #### 2 975352 ####[facility] [address] [place] [address] Phencyclidine Screen method >25 ng/mL Ql (U) Negative Normal Negative [facility] Comment on above: Result Comment: Nega tive Cutoff: <25 ng/mLThese drug screen results are to be used for medical (i.e., treatment) purposes only. Unconfirmed drug screening results must not be used for non-medical purposes (e.g., employment testing, legal testing). Performed By: #### 2 075045 ####[facility] [address] [place] [address] Tetrahydrocannabinol Screen method >50 ng/mL Ql (U) Negative Normal Negative [facility] Comment on above: Result Comment: Nega tive Cutoff: <50 ng/mL Performed By: #### 2 058978 ####[facility] [address] [facility] [place] [address] UA With Cult Reflexon 2022 Bilirubin Ql (U) 1+ Abnormal Negative [facility] Comment on above: Performed By: #### 1 1864063 ####[facility] Sp[address]qq[address] [place] [address] Clarity (U) CLOUDY Abnormal Clear [facility] Comment on above: Performed By: #### 1 3633198 ####[facility] [address] [place] [address] Color (U) DARK YELLO Abnormal Yellow [facility] Comment on above: Performed By: #### 1 8012212 ####[facility] W[address] [place] [address] Crystals LM Ql (Urine sed) Present Normal [facility] Comment on above: Performed By: #### 1 1740225 ####[facility] [address]axf[address] [place] [address] Epithelial cells.squamous LM.HPF (Urine sed) [#/Area] 9-10 Normal 0-2 [facility] Comment on above: Performed By: #### 1 0056457 ####[facility] Cqf[address]jl[address]wr[address] [place] [address] Glucose Test strip (U) [Mass/Vol] Negative Normal Negative [facility] Comment on above: Performed By: #### 1 6602241 ####[facility] [address] [facility] [place] [address] Hemoglobin Ql (U) 3+ Abnormal Negative [facility] Comment on above: Performed By: #### 1 5006521 ####[facility] [address] [place] [address] Ketones (U) [Mass/Vol] TRACE Invalid Interpretation Code Negative [facility] Comment on above: Performed By: #### 1 [id number] ####[facility] Carr[address] [address] Sloan.plasma/Lithiu m.RBC (Bld) [Mass ratio] 0-3 Normal 0-3 [facility] Comment on above: Performed By: #### 1 6498052 ####[address] [address] Nitrite Ql (U) Negative Normal Negative [facility] Comment on above: Performed By: #### 1 3466220 ####[place] [address] pH (U) 7.0 [pH] Invalid Interpretation Code 5.0-9.0 [facility] Comment on above: Performed By: #### 1 8308877 ####[place] [address] Protein (U) [Mass/Vol] 2+ Abnormal Negative [facility] Comment on above: Performed By: #### 1 0377460 ####[place] [address] Specific gravity (U) [Rel density] 1.015 Invalid Interpretation Code 1.005-1.030 [facility] Comment on above: Performed By: #### 1 6305747 ####[place] [address] Type of Urine collection method Clean Catch Normal [facility] Comment on above: Performed By: #### 1 6360055 ####[address] [address] Urobilinogen Qn (U) >=8.0 Abnormal 0.0-1.0 [facility] Comment on above: Performed By: #### 1 9683332 ####[address] [address] WBC Auto Ql (U) Negative Normal Negative [facility] Comment on above: Performed By: #### 1 0651769 ####[address] [address] WBC LM.HPF (Urine sed) [#/Area] 0-5 Normal 0-5 [facility] Comment on above: Performed By: #### 1 8914421 ####[facility] [address] [place] [address] URINALYSISOrdered By: Zakiya Lorenzo on 12-10-2022 Bilirubin [...] Interpretation Code Negative [facility] UA Auto SS Sloan.plasma/Lithiu m.RBC (Bld) [Mass ratio] 0-3 /HPF Normal [...] Invalid Interpretation Code 0.0 - 1.0 EU/dL [facility] UA Auto SS WBC Auto Ql (U) Negative (12/10/22 11:15 AM) Normal Negative [facility] UA Auto SS WBC LM.HPF (Urine sed) [#/Area] 0-5 /HPF Normal 0-5/HPF [facility] UA Auto SS XR Chest Single Viewon 12-10 XR Chest Single View Normal [facility] eGFRon 12-10-2022 GFR/1.73 sq M.predicted among non-blacks MDRD (S/P/Bld) [Vol rate/Area] 124 mL/min/1.73 m2 Normal >=59 [facility] Comment on above: Order Comment: Order added by Discern Expert. Result Comment: Sugarcane Planter justin kidney disease could be indicated at eGFR's of less than 60 mL/min/1.73m2. Kidney failure is indicated at less than 15 mL/min/1.73m2. Performed By: #### 2 207356, 37825806, 13144065, 8164642, 6324259, 29438303, 26760442, 7798242, 8929372, 0598260 ####[facility] [address] [place] [address] Consenton 12-03-2022 Consent [id number] FF Normal [facility] C Urineon 12-02-2022 Bacteria identified Cx Nom (U) Normal [facility] Comment on above: Performed By: #### 2 897721 ####[facility] [address] [place] [address] Family Medicine Office/Clini c Noteon 11-30-2022 Family Medicine Office/Clinic Note Normal [facility] Comment on above: Result Comment: Elec tronically Signed By: ANA HARO, CARRIE\.br\Date and Time Signed: 11/30/22 14:01 EDT Patient Educationon 12-01-19 Patient Education Normal [facility] DHEASon 11-20-2022 DHEA-S [Mass/Vol] 35.7 microgram/dL Low 84.8-378.0 [facility] Comment on above: Result Comment: Perf ormed at: [place] [id number] [place], [place] [id number] PhD Sriram Arceo Performed By: #### 2 466181, 6886579, 784001349, 9851497, 958412995, 01367591, 84615745 ####[facility] [address] [place] [address] Estradiolon 11-20-2022 E2 [Mass/Vol] 85.0 pg/mL Invalid Interpretation Code [facility] Comment on above: Result Comment: Adul t Female:Follicular phase 12.5 - 166.0Ovulation phase 85.8 - 498.0Luteal phase 43.8 - 211.0Postmenopausal <6.0 - 54.2Hailtvrxc9eh trimester 215.0 - >4300.0Roche ECLIA methodologyPerformed at: [facility] [id number] PhD Sriram Arceo Performed By: #### 2 902900, 2420031, 115953144, 2185524, 642493936, 70815774, 56541607 ####[address] [address] FSHon 11-20-2022 Follitropin Qn 10.0 m[IU]/mL Invalid Interpretation Code [facility] Comment on above: Result Comment: Adul t Female:Follicular phase 3.5 - 12.5Ovulation phase 4.7 - 21.5Luteal phase 1.7 - 7.7Postmenopausal 25.8 - 134.8Performed at: [place] [id number] [place], [place] [id number] PhD Sriram Arceo Performed By: #### 2 448691, 8355127, 049530304, 6130611, 042570037, 53751435, 22117385 ####[facility] [address] [place] [address] HIV Screen 4th Generation wR fxon 11-20-2022 HIV 1+2 Ab+HIV1 p24 Ag IA Ql Non-Reactive Invalid Interpretation Code Non Reactive [facility] Comment on above: Result Comment: HIV NegativeHIV-1/HIV-2 antibodies and HIV-1 p24 antigen were NOT detected.There is no laboratory evidence of HIV infection.Performed at: [facility] [address] [id number] PhD Sriram Arceo Performed By: #### 2 453150, 1141880, 146801869, 2556795, 416007981, 06231093, 49043434 ####[facility] [address] [place] [address] Hep Bs Agon 11-20-2022 HBV surface Ag IA Ql Negative Invalid Interpretation Code Negative [facility] Comment on above: Result Comment: Perf ormed at: [facility] [address] [id number] PhD Sriram Arceo Performed By: #### 2 760099, 3836965, 304274422, 8198790, 651239120, 32899563, 08112803 ####[facility] [address] [place] [address] Testosterone F&Ton 3 Testosterone [Mass/Vol] 40 ng/dL Invalid Interpretation Code [facility] Comment on above: Performed By: #### 2 206304, 7770056, 053799932, 6038141, 570116145, 78702414, 04015901 ####[facility] [address] [place] [address] Testosterone Free [Mass/Vol] 0.8 pg/mL Invalid Interpretation Code 0.0-4.2 [facility] Comment on above: Result Comment: Perf ormed at: [facility] [address] [id number] PhD Sriram ArceoPerformed at: [address] [id number] MD Dimitris Maher Performed By: #### 2 847622, 1535034, 235250367, 0458119, 273849586, 14386668, 20507722 ####[facility] [address] [place] [address] Thyroid Perox.tpo Abon 11-16 TPO Ab Qn 15 International_Unit/mL Invalid Interpretation Code 0-34 [facility] Comment on above: Result Comment: Perf ormed at: [facility] [place], [place] [id number] PhD Sriram Arceo Performed By: #### 3 7514641, 83363740, 93156298 ####[place] [address] [place] [address] WRITTEN AUTHORIZATIONon Written Authorization Comment Invalid Interpretation Code [facility] Comment on above: Result Comment: Writ ten Authorization Received.Authorization received from ORIGINAL ORDER [id number] by Rodrick Marshall at: [facility] [address] [place], [place] [id number] PhD Sriram Arceo Performed By: #### 3 1918963, 45575535, 03080060 ####[place] [place] [address] CHEMISTRYOrdered By: SYSTEM SYSTEM on 11-14-2022 Amphetamines [...] <50 ng/mL Physician Orderon 11-14-2022 Physician Order [id number]#1.00CD :127 Normal [facility] RPR with Conf Rfxon 11-15-19 Reagin Ab RPR Ql (S) Non-Reactive Invalid Interpretation Code Non Reactive [facility] Comment on above: Result Comment: Perf ormed at: [facility] [id number] PhD Sriram Arceo Performed By: #### 2 039529, 1117138, 344519609, 9222418, 248866945, 45253242, 23825178 ####[facility] [address] [place] [address] U Drug Screenon 11-14-2022 Amphetamines Screen method >1000 ng/mL Ql (U) Negative Normal Negative [facility] Comment on above: Result Comment: Nega tive Cutoff: <1000 ng/mL Performed By: #### 2 461595 ####[facility] [address] [place] [address] Barbiturates Screen Ql (U) Negative Normal Negative [facility] Comment on above: Result Comment: Nega tive Cutoff: <200 ng/mL Performed By: #### 2 552641 ####[facility] [address] [place] [address] Benzodiazepines Ql (U) Negative Normal Negative [facility] Comment on above: Result Comment: Nega tive Cutoff: <200 ng/mL Performed By: #### 2 476260 ####[facility] [address] [place] [address] Cocaine Ql (U) Negative Normal Negative [facility] Comment on above: Result Comment: Nega tive Cutoff: <300 ng/mL Performed By: #### 2 690514 ####[facility] [address] [place] [address] Opiates Screen Ql (U) Negative Normal Negative [facility] Comment on above: Result Comment: Nega tive Cutoff: <300 ng/mL Performed By: #### 2 767691 ####[address] [address] Phencyclidine Screen method >25 ng/mL Ql (U) Negative Normal Negative [facility] Comment on above: Result Comment: Nega tive Cutoff: <25 ng/mLThese drug screen results are to be used for medical (i.e., treatment) purposes only. Unconfirmed drug screening results must not be used for non-medical purposes (e.g., employment testing, legal testing). Performed By: #### 2 187440 ####[facility] [address] [place] [address] Tetrahydrocannabinol Screen method >50 ng/mL Ql (U) Negative Normal Negative [facility] Comment on above: Result Comment: Nega tive Cutoff: <50 ng/mL Performed By: #### 2 027142 ####[place] [address] [place] [address] CHEMISTRYOrdered By: SYSTEM SYSTEM on 11-13-2022 TSH Qn 1.86 m[IU]/L Normal 0.34 - 5.60 mcIU/mL [facility] Remisol Consent for Treatmenton Consent for Treatment [id number]#1.00CD: 127 Normal [facility] Consent for Treatment [id number]#1.00CD: 127 Normal [facility] Physician Orderon 11-13-2022 Physician Order [id number]#1.00CD :127 Normal [facility] Physician Order [id number]#1.00CD :127 Normal [facility] TSH With T4fr Reflexon 11-13 TSH Qn 1.86 m[IU]/L Normal 0.34-5.60 [facility] Comment on above: Performed By: #### 3 4216091, 82393834, 19171632 ####[facility] [address] [place] [address] Consent for Treatmenton Consent for Treatment [id number]#1.00CD:1 27 Normal [facility] Discharge Instructionson Discharge Instructions [id number]#1.00CD: 127 Normal [facility] ED Clinical Summaryon 2022 ED Clinical Summary Normal [facility] ED Note-Physicianon 11-12-19 ED Note-Physician [facility] Comment on above: Result Comment: Elec tronically Signed By: Elliott Hicks PA-C.br\Date and Time Signed: 11/11/22 11:36 EDT\.br\Electronically Co-Signed By: Isai Hall DO.br\Date and Time Co-Signed: 11/11/22 13:15 EDT ED Patient Education Noteon 11-11-2022 ED Patient Education Note Normal [facility] ED Patient Summaryon 023 ED Patient Summary Normal [facility] Pre-Arrival Noteon Pre-Arrival Note Normal [facility] Auto Diffon 11-04-2022 Basophils/100 WBC (Bld) 0.8 % Normal 0.0-2.0 [facility] Comment on above: Order Comment: Order Added by Discern Expert. Performed By: #### 1 5599885, 3462489, 0923852, 8600799 ####[address] [address] Basophils/Leukocytes Auto (Bld) [Pure # fraction] 0.0 E9/L Normal 0.0-0.2 [facility] Comment on above: Order Comment: Order Added by Discern Expert. Performed By: #### 1 9340672, 2799280, 6656499, 1290755 ####[address] [address] Eosinophils/100 WBC (Bld) 1.1 % Normal 0.0-8.0 [facility] Comment on above: Order Comment: Order Added by Discern Expert. Performed By: #### 1 0564878, 2286774, 5272706, 8409249 ####[address] [address] Eosinophils/Leukocyte s Auto (Bld) [Pure # fraction] 0.0 E9/L Normal 0.0-0.5 [facility] Comment on above: Order Comment: Order Added by Discern Expert. Performed By: #### 1 0816575, 7346260, 6668775, 0564795 ####[address] [address] Lymphocytes/100 WBC (Bld) 40.7 % Normal 14.0-50.0 [facility] Comment on above: Order Comment: Order Added by Discern Expert. Performed By: #### 1 5794239, 2059288, 3751267, 7265356 ####[address] [address] Lymphocytes/Leukocyte s Auto (Bld) [Pure # fraction] 1.6 E9/L Normal 1.0-4.0 [facility] Comment on above: Order Comment: Order Added by Discern Expert. Performed By: #### 1 6614668, 4397980, 7975520, 3853690 ####[place] [address] [place] [address] Monocytes/100 WBC (Bld) 6.9 % Normal 4.0-14.0 [facility] Comment on above: Order Comment: Order Added by Discern Expert. Performed By: #### 1 1342726, 4350004, 2499882, 6669984 ####[place] [address] [place] [address] Monocytes/Leukocytes Auto (Bld) [Pure # fraction] 0.3 E9/L Normal 0.2-1.0 [facility] Comment on above: Order Comment: Order Added by Discern Expert. Performed By: #### 1 2818003, 6146454, 7544606, 0121971 ####[address] [address] Neutrophils/100 WBC (Bld) 50.5 % Normal 36.0-75.0 [facility] Comment on above: Order Comment: Order Added by Discern Expert. Performed By: #### 1 3819315, 6445488, 2941335, 9933377 ####[address] [address] Neutrophils/Leukocyte s Auto (Bld) [Pure # fraction] 2.0 E9/L Normal 2.0-7.5 [facility] Comment on above: Order Comment: Order Added by Discern Expert. Performed By: #### 1 3667746, 6704114, 8160734, 5172626 ####[facility] [address] [place] [address] BMPon 11-04-2022 Creatinine [Mass/Vol] 0.6 mg/dL Normal 0.5-1.3 [facility] Comment on above: Performed By: #### 1 2209303, 6798300, 0307441, 8800858 ####[facility] [address] [place] [address] Urea nitrogen [Mass/Vol] 7 mg/dL Normal 5-21 [facility] Comment on above: Performed By: #### 1 8184207, 9289962, 5547490, 0630956 ####[facility] [address] [place] [address] Urea nitrogen/Creatinine [Mass ratio] 12 No Units Normal 10-20 [facility] Comment on above: Performed By: #### 1 1796393, 8428721, 5070931, 4469270 ####[facility] [address] [place] [address] Anion gap [Moles/Vol] 9 mmol/L Normal 6-16 [facility] Comment on above: Performed By: #### 1 0392540, 6411502, 6917394, 1626668 ####[facility] [address] [place] [address] Calcium [Mass/Vol] 9.0 mg/dL Normal 8.9-11.1 [facility] Comment on above: Performed By: #### 1 8827262, 5961888, 8632792, 6805527 ####[facility] [address] [place] [address] Chloride [Moles/Vol] 105 mmol/L Normal 101-111 [facility] Comment on above: Performed By: #### 1 4870747, 2015323, 5109067, 2907898 ####[facility] [address] [place] [address] CO2 [Moles/Vol] 27 mmol/L Normal 21-31 [facility] Comment on above: Performed By: #### 1 4766598, 4804109, 5135704, 4898589 ####[facility] [address] [place] [address] Glucose [Mass/Vol] 115 mg/dL Normal 55-199 [facility] Comment on above: Result Comment: If t his glucose result represents a fasting glucose, interpretation should refer to the following reference range: 55-99 mg/dL Performed By: #### 1 0830050, 8419251, 6297909, 3374111 ####[facility] [address] [place] [address] Potassium [Moles/Vol] 4.3 mmol/L Normal 3.5-5.3 [facility] Comment on above: Performed By: #### 1 3883116, 8379480, 4184576, 9621136 ####[facility] [address] [place] [address] Sodium [Moles/Vol] 137 mmol/L Normal 135-145 [facility] Comment on above: Performed By: #### 1 1369494, 8227208, 5686927, 0272063 ####[facility] [address] [place] [address] CBC w/ Auto Diffon 3 Erythrocyte distribution width (RBC) [Ratio] 14.4 % High 10.9-14.2 [facility] Comment on above: Performed By: #### 1 0383854, 9905111, 7134220, 1182659 ####[place] [address] Hematocrit (Bld) [Volume fraction] 42.6 % Normal 34.0-46.0 [facility] Comment on above: Performed By: #### 1 7990315, 6724399, 0813849, 9611351 ####[place] [address] [place] [address] Hemoglobin (Bld) [Mass/Vol] 14.4 g/dL Normal 12.0-16.0 [facility] Comment on above: Performed By: #### 1 9515909, 3918308, 2679238, 5827563 ####[facility] [address] [place] [address] MCH (RBC) [Entitic mass] 33.1 pg Normal 27.0-34.0 [facility] Comment on above: Performed By: #### 1 8127697, 1641085, 5592667, 7261607 ####[facility] [address] [place] [address] MCHC (RBC) [Mass/Vol] 33.8 g/dL Normal 31.4-36.0 [facility] Comment on above: Performed By: #### 1 5245774, 9120355, 7601242, 3145473 ####[facility] [address] [place] [address] MCV (RBC) [Entitic vol] 98.0 fL Normal 80.0-100.0 [facility] Comment on above: Performed By: #### 1 6986369, 4204575, 0311607, 5727042 ####[place] [address] [place] [address] Platelet mean volume (Bld) [Entitic vol] 8.6 fL Normal 6.4-10.8 [facility] Comment on above: Performed By: #### 1 2600036, 6582992, 2908545, 3964650 ####[place] [address] Platelets (Bld) [#/Vol] 113.0 E9/L Low 150.0-500.0 [facility] Comment on above: Performed By: #### 1 3099962, 5343388, 5475366, 5904397 ####[place] [address] RBC (Bld) [#/Vol] 4.4 E12/L Normal 4.3-5.9 [facility] Comment on above: Performed By: #### 1 5403318, 8331802, 3718955, 6848328 ####[place] [address] WBC corrected for nucl RBC Auto (Bld) [#/Vol] 4.0 E9/L Normal 4.0-11.0 [facility] Comment on above: Performed By: #### 1 0710874, 3990417, 8786428, 0552385 ####[place] [address] CHEMISTRYOrdered By: SYSTEM SYSTEM on 11-04-2022 Anion gap [Moles/Vol] 9 mmol/L Normal 6 - 16 mEq/L [facility] Remisol Calcium [Mass/Vol] 9.0 mg/dL Normal 8.9 - 11. 1 mg/dL [facility] Remisol Chloride [Moles/Vol] 105 mmol/L Normal 101 - 1 11 mmol/L FT Remisol CO2 [Moles/Vol] 27 mmol/L Normal 21 - 31 mmol/L [facility] Remisol Creatinine [Mass/Vol] 0.6 mg/dL Normal 0.5 - 1.3 mg/dL [facility] Remisol GFR/1.73 sq M.predicted among non-blacks MDRD (S/P/Bld) [Vol rate/Area] 124 mL/min/1.73 m2 Normal >=59mL/min/1 .73 m2 [facility] Chem S Glucose [Mass/Vol] 115 mg/dL Normal 55 - 199 mg/dL [facility] Remisol Potassium [Moles/Vol] 4.3 mmol/L Normal 3.5 - 5.3 mmol/L [facility] Remisol Sodium [Moles/Vol] 137 mmol/L Normal 135 - 145 mmol/L [facility] Remisol Urea nitrogen [Mass/Vol] 7 mg/dL Normal 5 - 21 mg/dL [facility] Remisol Urea nitrogen/Creatinine [Mass ratio] 12 mg/mg Normal 10 - 20 [facility] Remisol Consent for Treatmenton 10-13 Consent for Treatment [id number]#1.00CD: 127 Normal [facility] Discharge Instructionson Discharge Instructions [id number]#1.00CD: 127 Normal [facility] ED Clinical Summaryon 2022 ED Clinical Summary Normal [facility] ED Note-Physicianon 11-05-19 23 ED Note-Physician Normal [facility] Comment on above: Result Comment: Elec tronically Signed By: Parveen Buckner, Gladys H\.br\Date and Time Signed: 11/04/22 16:02 EDT ED Patient Education Noteon 11-04-2022 ED Patient Education Note Normal [facility] ED Patient Summaryon 023 ED Patient Summary Normal [facility] HEMATOLOGYOrdered By: SYSTEM SYSTEM on 11-04-2022 [...] 113.0 E9/L Low 150.0 - 500.0 E9/L [facility] HemeAutoSS RBC (Bld) [#/Vol] 4.4 E12/L Normal 4.3 - 5.9 E12/L [facility] HemeAutoSS WBC corrected for nucl RBC Auto (Bld) [#/Vol] 4.0 E9/L Normal 4.0 - 11.0 E9/L [facility] HemeAutoSS eGFRon 11-04-2022 GFR/1.73 sq M.predicted among non-blacks MDRD (S/P/Bld) [Vol rate/Area] 124 mL/min/1.73 m2 Normal >=59 [facility] Comment on above: Order Comment: Order added by Discern Expert. Result Comment: Sugarcane Planter justin kidney disease could be indicated at eGFR's of less than 60 mL/min/1.73m2. Kidney failure is indicated at less than 15 mL/min/1.73m2. Performed By: #### 1 3133810, 7739976, 1088762, 7619406 ####[facility] [address] [place] [address] Registrationon 10-08-2022 Registration [id number]#1.00CD :127 Normal [facility] Consenton 10-05-2022 Consent [id number] :127 Normal [facility] Insurance Correspondenceon 0 09-12-2022 Insurance Correspondence [id number]: 127 Normal [facility] Physician Referralon 023 Physician Referral [id number]: 127 Normal [facility] ED Note-Physicianon 09-11-19 23 ED Note-Physician [id number]: 127 Normal [facility] Alanine aminotransferase [En zymatic activity/volume] in Serum or PlasmaOrdered By: Declan Marina on 09-06-2022 ALT [Catalytic activity/Vol] 54 U/L High 7-52 [facility] Comment on above: Performed By: #### C MP, LIPASE, CBC #### [address] Albumin [Mass/volume] in Ser um or Plasma by Bromocresol green (BCG) dye binding methoOrdered By: Declan Marina on 09-06-2022 Albumin BCG dye [Mass/Vol] 4.2 g/dL 3.5-5.7 [facility] Alkaline phosphatase [Enzyma tic activity/volume] in Serum or PlasmaOrdered By: Declan Marina on 09-06-2022 ALP [Catalytic activity/Vol] 106 U/L High 34-104 [facility] Comment on above: Performed By: #### C MP, LIPASE, CBC #### [address] Amphetamine Screen Ql (U)Ord ered By: Declan Marina on 09-06-2022 Amphetamines Ql (U) Negative Negative [facility] Aspartate aminotransferase [ Enzymatic activity/volume] in Serum or PlasmaOrdered By: Declan Marina on 09-06-2022 AST [Catalytic activity/Vol] 80 U/L High 13-39 [facility] Comment on above: Performed By: #### C MP, LIPASE, CBC #### [address] Automated basophil %Ordered By: Declan Marina on 09-06-2022 Basophils/100 WBC (Bld) 0.7 % Normal . [facility] Comment on above: Performed By: #### E ODALIS, MG, CMP, CBC #### [address] Automated basophil countOrde red By: Declan Marina on 09-06-2022 Basophils (Bld) [#/Vol] 0.1 10*3/uL Normal 0.0-0.2 [facility] Comment on above: Result Comment: PERF ORMED BY: [place] [address] PATHOLOGIST HEADING REPAIRER LEE CARDOSO M.D. Performed By: #### E ODALIS, MG, CMP, CBC #### [address] Automated blood monocyte cou ntOrdered By: Declan Marina on 09-06-2022 Monocytes (Bld) [#/Vol] 0.3 10*3/uL Normal 0.0-0.8 [facility] Comment on above: Performed By: #### E ODALIS, MG, CMP, CBC #### [address] Automated eosinophil %Ordere d By: Declan Marina on 09-06-2022 Eosinophils/100 WBC (Bld) 0.2 % Normal . [facility] Comment on above: Performed By: #### E ODALIS, MG, CMP, CBC #### [address] Automated eosinophil countOr dered By: Declan Marina on 09-06-2022 Eosinophils (Bld) [#/Vol] 0.0 10*3/uL Normal 0.0-0.45 [facility] Comment on above: Performed By: #### E ODALIS, MG, CMP, CBC #### [address] Automated erythrocytes count in urine sediment (number/area)Ordered By: Declan Marina on 09-06-2022 RBC Auto (Urine sed) [#/Area] None seen [HPF] 0-4 [facility] Automated leukocytes count i n urine sediment (number/area)Ordered By: Declan Marina on 09-06-2022 WBC Auto (Urine sed) [#/Area] 0-1 [HPF] 0-4 [facility] Automated monocyte %Ordered By: Declan Marina on 09-06-2022 Monocytes/100 WBC (Bld) 3.0 % Normal . [facility] Comment on above: Performed By: #### E ODALIS, MG, CMP, CBC #### [address] Automated neutrophil %Ordere d By: Declan Marina on 09-06-2022 Neutrophils/100 WBC (Bld) 80.0 % Normal . [facility] Comment on above: Performed By: #### E ODALIS, MG, CMP, CBC #### [facility] [address] Automated urine color determ inationOrdered By: Declan Marina on 09-06-2022 Color (U) Yellow Normal Yellow [facility] Comment on above: Order Comment: Name Collection Type:: Clean-Voided Midstream Performed By: #### C MP, LIPASE, CBC #### [facility] [address] Barbiturates [Presence] in U rine by Screen methodOrdered By: Declan Marina on 09-06-2022 Barbiturates Screen Ql (U) Negative Negative [facility] Benzodiazepines Screen Ql (U )Ordered By: Declan Marina on 09-06-2022 Benzodiazepines Ql (U) Negative Negative [facility] Benzoylecgonine [Presence] i n Urine by Screen methodOrdered By: Declan Marina on 09-06-2022 Benzoylecgonine Screen Ql (U) Negative Negative [facility] Bilirubin Test strip Ql (U)O rdered By: Declan Marina on 09-06-2022 Bilirubin Ql (U) Negative Negative [facility] Bilirubin.total [Mass/volume ] in Serum or PlasmaOrdered By: Declan Marina on 09-06-2022 Bilirubin [Mass/Vol] 0.6 mg/dL Normal 0.3-1.0 [facility] Comment on above: Performed By: #### C MP, LIPASE, CBC #### [address] Calcium [Mass/volume] in Ser um or PlasmaOrdered By: Declan Marina on 09-06-2022 Calcium [Mass/Vol] 9.6 mg/dL Normal 8.6-10.3 [facility] Comment on above: Performed By: #### C MP, LIPASE, CBC #### [address] Cannabinoids [Presence] in U rine by Screen methodOrdered By: Declan Marina on 09-06-2022 Cannabinoids Screen Ql (U) Negative Negative [facility] Comment on above: These are unconfirme d results and should not be used for legal purposes. Drug Cut-Off Concentration: AMPH 1000 ng/mL JANELL 200 ng/mL JAMES 200 ng/mL COCM 300 ng/mL OP 300 ng/mL PCP 25 ng/mL THC 20 ng/mL Carbon dioxide, total [Moles /volume] in Serum or PlasmaOrdered By: Declan Marina on 09-06-2022 CO2 [Moles/Vol] 27.1 mmol/L Normal 21.0-31.0 [facility] Comment on above: Performed By: #### C MP, LIPASE, CBC #### [address] Chloride [Moles/volume] in S marbella or PlasmaOrdered By: Declan Marina on 09-06-2022 Chloride [Moles/Vol] 98 mmol/L Normal 98-107 [facility] Comment on above: Performed By: #### C MP, LIPASE, CBC #### [address] Complete Blood Count Auto Di ffon 09-06-2022 Mean Corpuscular HGB Conc 34.1 g/dL Normal 32.0-35.0 [facility] Comment on above: Performed By: #### E ODALIS, MG, CMP, CBC #### [place] [address] [place] Monocytes/100 WBC (Bld) 15.56 % Normal 0.00-20.00 [facility] Comment on above: Performed By: #### E ODALIS, MG, CMP, CBC #### [address] NRBC% 0.1 /100{WBC} Normal 0-0.5 [facility] Comment on above: Performed By: #### E ODALIS, MG, CMP, CBC #### [address] Comprehensive Metabolic Pane mary beth 09-06-2022 Albumin [Mass/Vol] 4.2 g/dL Normal 3.5-5.7 [facility] Comment on above: Performed By: #### C MP, LIPASE, CBC #### [facility] [address] Creatinine Clr Calc Pharmacy 149.26 Normal [facility] Comment on above: Performed By: #### C MP, LIPASE, CBC #### [facility] [address] [place] [address] [place] GFR/1.73 sq M.predicted MDRD (S/P/Bld) [Vol rate/Area] mL/min/{1.73_m2} Normal [facility] Comment on above: Performed By: #### C MP, LIPASE, CBC #### [address] Creatinine [Mass/volume] in Serum or PlasmaOrdered By: Declan Marina on 09-06-2022 Creatinine [Mass/Vol] 0.51 mg/dL Low 0.60-1.20 [facility] Comment on above: Performed By: #### C MP, LIPASE, CBC #### [address] Dipstick and Microscopicon 0 09-06-2022 Appearance (U) Clear Normal Clear [facility] Comment on above: Order Comment: Name Collection Type:: Clean-Voided Midstream Performed By: #### C MP, LIPASE, CBC #### [address] Bacteria,Urine 1+ High None Seen [facility] Comment on above: Order Comment: Name Collection Type:: Clean-Voided Midstream Performed By: #### C MP, LIPASE, CBC #### [place] [address] [place] Bilirubin,Urine Negative Normal Negative [facility] Comment on above: Order Comment: Name Collection Type:: Clean-Voided Midstream Performed By: #### C MP, LIPASE, CBC #### [address] Glucose Ql (U) Normal Normal Normal [facility] Comment on above: Order Comment: Name Collection Type:: Clean-Voided Midstream Performed By: #### C MP, LIPASE, CBC #### [place] [address] [place] Hyaline Casts,Urine 0-8 Normal 0-8 [facility] Comment on above: Order Comment: Name Collection Type:: Clean-Voided Midstream Result Comment: PERF ORMED BY: [place] [address] PATHOLOGIST HEADING REPAIRER LEE CARDOSO M.D. Performed By: #### C MP, LIPASE, CBC #### [address] Ketones Ql (U) Negative Normal Negative [facility] Comment on above: Order Comment: Name Collection Type:: Clean-Voided Midstream Performed By: #### C MP, LIPASE, CBC #### [address] Leukocyte esterase Test strip Ql (U) 1+ High Negative [facility] Comment on above: Order Comment: Name Collection Type:: Clean-Voided Midstream Performed By: #### C MP, LIPASE, CBC #### [place] [address] [place] Nitrite,Urine Negative Normal Negative [facility] Comment on above: Order Comment: Name Collection Type:: Clean-Voided Midstream Performed By: #### C MP, LIPASE, CBC #### [place] [address] [place] Occult Blood,Urine 2+ High Negative [facility] Comment on above: Order Comment: Name Collection Type:: Clean-Voided Midstream Result Comment: PERF ORMED BY: [place] [address] PATHOLOGIST HEADING REPAIRER LEE CARDOSO M.D. Performed By: #### C MP, LIPASE, CBC #### [place] [address] [place] Protein,Urine Trace High Negative [facility] Comment on above: Order Comment: Name Collection Type:: Clean-Voided Midstream Performed By: #### C MP, LIPASE, CBC #### [address] RBC,Urine None Seen Normal 0-4 [facility] Comment on above: Order Comment: Name Collection Type:: Clean-Voided Midstream Performed By: #### C MP, LIPASE, CBC #### [address] Specificy [place],Urine 1.012 Normal 1.001-1.030 [facility] Comment on above: Order Comment: Name Collection Type:: Clean-Voided Midstream Performed By: #### C MP, LIPASE, CBC #### [address] Squamous Epithelial Cell,Urine 3-4 High 0-2 [facility] Comment on above: Order Comment: Name Collection Type:: Clean-Voided Midstream Performed By: #### C MP, LIPASE, CBC #### [address] Urobilinogen,Urine Normal Normal Normal [facility] Comment on above: Order Comment: Name Collection Type:: Clean-Voided Midstream Performed By: #### C MP, LIPASE, CBC #### [address] WBC LM.HPF (Urine sed) [#/Area] 0 /[HPF] Normal 0-4 [facility] Comment on above: Order Comment: Name Collection Type:: Clean-Voided Midstream Performed By: #### C MP, LIPASE, CBC #### [address] Drug Screen,Urineon 09-07-19 23 Amphetamine Screen,Urine Negative Normal Negative [facility] Comment on above: Performed By: #### C MP, LIPASE, CBC #### [address] Barbiturate Screen,Urine Negative Normal Negative [facility] Comment on above: Performed By: #### C MP, LIPASE, CBC #### [address] Benzodiazepines Screen,Urine Negative Normal Negative [facility] Comment on above: Performed By: #### C MP, LIPASE, CBC #### [address] Cannabinoid Screen,Urine Negative Normal Negative [facility] Comment on above: Result Comment: Thes e are unconfirmed results and should not be used for legal purposes. Drug Cut-Off Concentration: AMPH 1000 ng/mL JANELL 200 ng/mL JAMES 200 ng/mL COCM 300 ng/mL OP 300 ng/mL PCP 25 ng/mL THC 20 ng/mL PERFORMED BY: [place] [address] PATHOLOGIST HEADING REPAIRER LEE CARDOSO M.D. Performed By: #### C MP, LIPASE, CBC #### [address] Cocaine Screen,Urine Negative Normal Negative [facility] Comment on above: Performed By: #### C MP, LIPASE, CBC #### [address] Opiate Screen,Urine Negative Normal Negative [facility] Comment on above: Performed By: #### C MP, LIPASE, CBC #### [address] Phencyclidine Screen,Urine Negative Normal Negative [facility] Comment on above: Performed By: #### C MP, LIPASE, CBC #### [address] Erythrocyte distribution wid th [Ratio] by Automated countOrdered By: Declan Marina on 09-06-2022 Erythrocyte distribution width (RBC) [Ratio] 14.2 % Normal 11.9-15.3 [facility] Comment on above: Performed By: #### E ODALIS, MG, CMP, CBC #### [address] Erythrocytes [#/volume] in B lood by Automated countOrdered By: Declan Marina on 09-06-2022 RBC (Bld) [#/Vol] 4.62 10*6/uL Normal 3.60-5.[address] [facility] Comment on above: Performed By: #### E ODALIS, MG, CMP, CBC #### [facility] [address] Ethanol [Mass/volume] in Ser um or PlasmaOrdered By: Declan Marina on 09-06-2022 Ethanol [Mass/Vol] mg/dL Normal [facility] Comment on above: Performed By: #### C MP, LIPASE, CBC #### [facility] [address] Ethanol [Mass/Vol] TNP [facility] Comment on above: Test not performed Ethyl Alcohol Profileon 08-12 Percent Ethanol Not performed Normal [facility] Comment on above: Result Comment: PERF ORMED BY: [place] [address] PATHOLOGIST HEADING REPAIRER LEE CARDOSO M.D. Performed By: #### C MP, LIPASE, CBC #### [address] Glucose [Mass/volume] in Ser um or PlasmaOrdered By: Declan Marina on 09-06-2022 Glucose [Mass/Vol] 95 mg/dL Normal 70-100 [facility] Comment on above: ADA recommended refe rence rangeRandom Glucose Reference Range is dependent on time and content of last meal. Glucose of more than 200 mg/dL in a nonstressed, ambulatory subject supports the diagnosis of Diabetes Mellitus. Result Comment: [place] om Glucose Reference Range is dependent on time and content of last meal. Glucose of more than 200 mg/dL in a nonstressed, ambulatory subject supports the diagnosis of Diabetes Mellitus. ADA recommended reference range Performed By: #### C MP, LIPASE, CBC #### [address] Hematocrit [Volume Fraction] of Blood by Automated countOrdered By: Declan Marina on 09-06-2022 Hematocrit (Bld) [Volume fraction] 43.2 % Normal 34.0-46.4 [facility] Comment on above: Performed By: #### E ODALIS, MG, CMP, CBC #### [place] [address] [place] Hemoglobin [Mass/volume] in BloodOrdered By: Declan Marina on 09-06-2022 Hemoglobin (Bld) [Mass/Vol] 14.7 g/dL Normal 11.8-15.4 [facility] Comment on above: Performed By: #### E ODALIS, MG, CMP, CBC #### [facility] [address] Ketones Auto test strip (U) [Mass/Vol]Ordered By: Declan Marina on 09-06-2022 Ketones (U) [Mass/Vol] Negative Negative [facility] Laboratory - UrinalysisOrder ed By: Declan Marina on 09-06-2022 Hyaline casts LM Ql (Urine sed) 0-8 [LPF] 0-8 [facility] Leukocytes [#/volume] correc jose for nucleated erythrocytes in Blood by Automated counOrdered By: Declan Marina on 09-06-2022 WBC corrected for nucl RBC Auto (Bld) [#/Vol] 9.5 10*3/uL 3.8-11.6 [facility] Leukocytes [#/volume] in Blo od by Automated countOrdered By: Declan Marina on 09-06-2022 WBC (Bld) [#/Vol] 9.5 10*3/uL Normal 3.8-11.6 [facility] Comment on above: Performed By: #### E ODALIS, MG, CMP, CBC #### [facility] [address] [place] [address] [place] Lymphocytes [#/volume] in Bl ood by Automated countOrdered By: Declan Marina on 09-06-2022 Lymphocytes (Bld) [#/Vol] 1.5 10*3/uL Normal 1.00-4.8 [facility] Comment on above: Performed By: #### E ODALIS, MG, CMP, CBC #### [facility] [address] [place] [address] [place] Lymphocytes/100 leukocytes i n Blood by Automated countOrdered By: Declan Marina on 09-06-2022 Lymphocytes/100 WBC (Bld) 16.1 % Normal . [facility] Comment on above: Performed By: #### E ODALIS, MG, CMP, CBC #### [address] MCH [Entitic mass] by Automa jose countOrdered By: Declan Marina on 09-06-2022 MCH (RBC) [Entitic mass] 31.9 pg Normal 24.7-34.3 [facility] Comment on above: Performed By: #### E ODALIS, MG, CMP, CBC #### [facility] [address] [place] [address] MCHC Auto (RBC) [Mass/Vol]Or dered By: Declan Marina on 09-06-2022 MCHC (RBC) [Mass/Vol] 34.1 g/dL 32.0-35.0 [facility] MCV [Entitic volume] by Auto mated countOrdered By: Declan Marina on 09-06-2022 MCV (RBC) [Entitic vol] 93.6 fL Normal 80-100 [facility] Comment on above: Performed By: #### E ODALIS, MG, CMP, CBC #### [address] Magnesium [Mass/volume] in S marbella or PlasmaOrdered By: Declan Marina on 09-06-2022 Magnesium [Mass/Vol] 1.3 mg/dL Low 1.9-2.7 [facility] Comment on above: Result Comment: PERF ORMED BY: [place] [address] PATHOLOGIST HEADING REPAIRER LEE CARDOSO M.D. Performed By: #### C MP, LIPASE, CBC #### [address] Monocyte distribution width [Entitic volume] in Blood by AutomatedOrdered By: Declan Marina on 09-06-2022 Monocyte distribution width Auto (Bld) [Entitic vol] 15.56 % 0.00-20.00 [facility] Neutrophils [#/volume] in Bl ood by Automated countOrdered By: Declan Marina on 09-06-2022 Neutrophils (Bld) [#/Vol] 7.6 10*3/uL Normal 1.8-7.7 [facility] Comment on above: Performed By: #### E ODALIS, MG, CMP, CBC #### [facility] [address] Nitrite Test strip Ql (U)Ord ered By: Declan Marina on 09-06-2022 Nitrite Ql (U) Negative Negative [facility] No Panel InformationOrdered By: Declan Marina on 09-06-2022 Estimated GFR (CKD-EPI) > 60.0 mL/Min [facility] Creatinine Clearance (Chem 149.26 [facility] Nucleated erythrocytes [Pres ence] in Blood by Automated countOrdered By: Declan Marina on 09-06-2022 Nucleated RBC Auto Ql (Bld) 0.1 /100{WBC} 0-0.5 [facility] Opiates [Presence] in Urine by Screen methodOrdered By: Declan Marina on 09-06-2022 Opiates Screen Ql (U) Negative Negative [facility] Phencyclidine Screen Ql (U)O rdered By: Declan Marina on 09-06-2022 Phencyclidine Ql (U) Negative Negative [facility] Platelet mean volume [Entiti c volume] in Blood by Automated countOrdered By: Declan Marina on 09-06-2022 Platelet mean volume (Bld) [Entitic vol] 7.7 fL Normal 6.3-10.7 [facility] Comment on above: Performed By: #### E ODALIS, MG, CMP, CBC #### [facility] [address] Platelets [#/volume] in Bloo d by Automated countOrdered By: Declan Marina on 09-06-2022 Platelets (Bld) [#/Vol] 230 10*3/uL Normal 150-450 [facility] Comment on above: Performed By: #### E ODALIS, MG, CMP, CBC #### [facility] [address] [place] [address] [place] Potassium [Moles/volume] in Serum or PlasmaOrdered By: Declan Marina on 09-06-2022 Potassium [Moles/Vol] 4.1 mmol/L Normal 3.5-5.1 [facility] Comment on above: Performed By: #### C MP, LIPASE, CBC #### [address] Protein Auto test strip (U) [Mass/Vol]Ordered By: Declan Marina on 09-06-2022 Protein (U) [Mass/Vol] Trace mg/dL Negative [facility] Protein [Mass/volume] in Ser um or PlasmaOrdered By: Declan Marina on 09-06-2022 Protein [Mass/Vol] 8.1 g/dL Normal 6.4-8.9 [facility] Comment on above: Performed By: #### C MP, LIPASE, CBC #### [address] Serum globulin measurement b y calculation (mass/volume)Ordered By: Declan Marina on 09-06-2022 Globulin (S) [Mass/Vol] 3.9 g/dL Normal [facility] Comment on above: Performed By: #### C MP, LIPASE, CBC #### [address] Serum or plasma albumin/glob ulin mass ratioOrdered By: Declan Marina on 09-06-2022 Albumin/Globulin [Mass ratio] 1.1 {ratio} [facility] Comment on above: Performed By: #### C MP, LIPASE, CBC #### [address] Serum or plasma anion gap de terminationOrdered By: Declan Marina on 09-06-2022 Anion gap [Moles/Vol] 12.0 mmol/L Normal 6.0-15.0 [facility] Comment on above: Performed By: #### C MP, LIPASE, CBC #### [address] Sodium [Moles/volume] in Ser um or PlasmaOrdered By: Declan Marina on 09-06-2022 Sodium [Moles/Vol] 133 mmol/L Low 136-145 [facility] Comment on above: Performed By: #### C MP, LIPASE, CBC #### [address] Specific gravity Auto test s trip (U) [Rel density]Ordered By: Declan Marina on 09-06-2022 Specific gravity (U) [Rel density] 1.012 1.001-1.030 [facility] Squamous epithelial cells de tection in urine sediment by light microscopyOrdered By: Declan Marina on 09-06-2022 Epithelial cells.squamous LM Ql (Urine sed) 3-4 [HPF] 0-2 [facility] Urea nitrogen [Mass/volume] in Serum or PlasmaOrdered By: Declan Marina on 09-06-2022 Urea nitrogen [Mass/Vol] 8 mg/dL Normal 7-25 [facility] Comment on above: Performed By: #### C MP, LIPASE, CBC #### [facility] [address] Urine bacteria detection by automated methodOrdered By: Declan Marina on 09-06-2022 Bacteria Auto Ql (U) 1+ None Seen [facility] Urine clarity by refractomet ry automatedOrdered By: Declan Marina on 09-06-2022 Clarity Refractometry automated (U) Clear Clear [facility] Urine glucose measurement by automated test strip (mass/volume)Ordered By: Declan Marina on 09-06-2022 Glucose Auto test strip (U) [Mass/Vol] Normal mg/dL Normal [facility] Urine hemoglobin detection b y automated test stripOrdered By: Declan Marina on 09-06-2022 Hemoglobin Auto test strip Ql (U) 2+ Negative [facility] Urine leukocyte esterase det ection by automated test stripOrdered By: Declan Marina on 09-06-2022 Leukocyte esterase Auto test strip Ql (U) 1+ Negative [facility] Urine pH measurement by auto mated test stripOrdered By: Declan Marina on 09-06-2022 pH (U) 8.5 [pH] Normal 5.0-9.0 [facility] Comment on above: Order Comment: Name Collection Type:: Clean-Voided Midstream Performed By: #### C MP, LIPASE, CBC #### [facility] [address] [place] [address] [place] Urobilinogen Auto test strip (U) [Mass/Vol]Ordered By: Declan Marina on 09-06-2022 Urobilinogen (U) [Mass/Vol] Normal mg/dL Normal [facility] Provider Letteron 09-04-2022 Provider Letter Normal [facility] Ambulatory Visit Summaryon 0 08-28-2022 Ambulatory Visit Summary Normal [facility] Family Medicine Office/Clini c Noteon 08-28-2022 Family Medicine Office/Clinic Note Normal [facility] Comment on above: Result Comment: Elec tronically Signed By: Lorie Morocho MD\.br\Date and Time Signed: 08/28/22 10:20 EDT Discharge Instructionson Discharge Instructions [id number]: 127 Normal [facility] Discharge Note-Nursingon Discharge Note-Nursing Normal [facility] Patient Education - Texton 0 08-18-2022 Patient Education - Text [facility] Progress Note-Physicianon Progress Note-Physician [facility] Comment on above: Result Comment: Elec tronically Signed By: Luciana Qureshi RN\.br\Date and Time Signed: 08/18/22 09:11 EDT\.br\Electronically Co-Signed By: Jonathan Patel DO\.br\Date and Time Co-Signed: 08/18/22 09:41 EDT Valuables Checkliston 2022 Valuables Checklist [id number] :127 Normal [facility] Acetamnphn Lvlon 08-17-2022 Acetaminophen [Mass/Vol] ug/mL Low 15-30 [facility] Comment on above: Performed By: #### 1 1079149, 8659769, 3722388, 3250313, 8268998, 35543654, 9017372, 7492741, 84037899, 3602891 ####[address] [place] [address] Ammoniaon 08-17-2022 Ammonia (P) [Moles/Vol] 43 mcmol High 11-35 [facility] Comment on above: Performed By: #### 2 952616, 6431055, 7724841, 90330563, 1799394, 2400747, 47241334, 64915460 ####[address] [place] [address] Ammonia (P) [Moles/Vol] 40 mcmol High 11-35 [facility] Comment on above: Performed By: #### 1 2868190, 5107391, 2152680, 6609485, 2811730, 53012783, 7358358, 0590885, 72001617, 0670001 ####[address] [place] [address] Auto Diffon 08-17-2022 Basophils/100 WBC (Bld) 0.3 % Normal 0.0-2.0 [facility] Comment on above: Order Comment: Order Added by Discern Expert. Performed By: #### 2 280465, 1050714, 7829279, 16701928, 0354277, 4084029, 22621899, 66756973 ####[address] [place] [address] Basophils/Leukocytes Auto (Bld) [Pure # fraction] 0.0 E9/L Normal 0.0-0.2 [facility] Comment on above: Order Comment: Order Added by Discern Expert. Performed By: #### 2 050778, 5275738, 5800303, 68687319, 7659256, 0651428, 58022652, 99057262 ####[address] [place] [address] Eosinophils/100 WBC (Bld) 0.4 % Normal 0.0-8.0 [facility] Comment on above: Order Comment: Order Added by Discern Expert. Performed By: #### 2 432688, 3009262, 7627315, 08524218, 8497484, 0330531, 60094336, 13776510 ####[address] [place] [address] Eosinophils/Leukocyte s Auto (Bld) [Pure # fraction] 0.0 E9/L Normal 0.0-0.5 [facility] Comment on above: Order Comment: Order Added by Discern Expert. Performed By: #### 2 493661, 5019556, 3885764, 11101368, 2694334, 0742737, 10267186, 69265976 ####[address] [place] [address] Lymphocytes/100 WBC (Bld) 33.9 % Normal 14.0-50.0 [facility] Comment on above: Order Comment: Order Added by Discern Expert. Performed By: #### 2 403995, 9468959, 9631436, 47089737, 8988415, 4704723, 96679461, 88670700 ####[address] [place] [address] Lymphocytes/Leukocyte s Auto (Bld) [Pure # fraction] 2.3 E9/L Normal 1.0-4.0 [facility] Comment on above: Order Comment: Order Added by Radha Expert. Performed By: #### 2 509433, 9511323, 5607448, 44020945, 0838043, 2268510, 71788012, 27705706 ####[address] [place] [address] Monocytes/100 WBC (Bld) 7.0 % Normal 4.0-14.0 [facility] Comment on above: Order Comment: Order Added by Radha Expert. Performed By: #### 2 520582, 1019974, 1329128, 25320632, 3461345, 3109522, 12475427, 30976852 ####[address] [place] [address] Monocytes/Leukocytes Auto (Bld) [Pure # fraction] 0.5 E9/L Normal 0.2-1.0 [facility] Comment on above: Order Comment: Order Added by Radha Expert. Performed By: #### 2 037859, 8001640, 8872905, 59447920, 1148867, 0976154, 41856616, 33497216 ####[address] [place] [address] Neutrophils/100 WBC (Bld) 58.4 % Normal 36.0-75.0 [facility] Comment on above: Order Comment: Order Added by Discern Expert. Performed By: #### 2 088484, 1192914, 6840138, 12085714, 9286694, 6931729, 27543872, 09908603 ####[facility] [address] [place] [address] Neutrophils/Leukocyte s Auto (Bld) [Pure # fraction] 4.0 E9/L Normal 2.0-7.5 [facility] Comment on above: Order Comment: Order Added by Radha Expert. Performed By: #### 2 945428, 3583114, 1027593, 57970042, 8350994, 9535154, 19877753, 54760817 ####[facility] [address] [place] [address] Basophils/100 WBC (Bld) 0.9 % Normal 0.0-2.0 [facility] Comment on above: Order Comment: Order Added by Radha Expert. Performed By: #### 1 1550331, 5873948, 3931380, 2389298, 7395051, 62256714, 1781135, 1037814, 85601637, 3208223 ####[address] [place] [address] Basophils/Leukocytes Auto (Bld) [Pure # fraction] 0.1 E9/L Normal 0.0-0.2 [facility] Comment on above: Order Comment: Order Added by Radha Expert. Performed By: #### 1 2538068, 9010505, 4914530, 0594277, 6662860, 28772753, 1429231, 7546233, 24318915, 8430875 ####[facility] [address] [place] [address] Eosinophils/100 WBC (Bld) 1.1 % Normal 0.0-8.0 [facility] Comment on above: Order Comment: Order Added by Radha Expert. Performed By: #### 1 6351833, 7463391, 6429440, 1087833, 0532441, 22824602, 1661445, 9943711, 66598992, 3824365 ####[facility] [address] [place] [address] Eosinophils/Leukocyte s Auto (Bld) [Pure # fraction] 0.1 E9/L Normal 0.0-0.5 [facility] Comment on above: Order Comment: Order Added by Discern Expert. Performed By: #### 1 4846844, 7484297, 7965454, 6569039, 5867380, 94208042, 4098540, 6009972, 52567475, 3631963 ####[address] [place] [address] Lymphocytes/100 WBC (Bld) 41.5 % Normal 14.0-50.0 [facility] Comment on above: Order Comment: Order Added by Discern Expert. Performed By: #### 1 9286912, 9043165, 9796991, 0238727, 4833176, 25395778, 7092682, 7857814, 81335517, 8986932 ####[address] [place] [address] Lymphocytes/Leukocyte s Auto (Bld) [Pure # fraction] 5.2 E9/L High 1.0-4.0 [facility] Comment on above: Order Comment: Order Added by Discern Expert. Performed By: #### 1 8191582, 5623211, 5782705, 7250482, 7349768, 78197018, 8143684, 0134429, 62914653, 4758067 ####[facility] [address] [place] [address] Monocytes/100 WBC (Bld) 10.0 % Normal 4.0-14.0 [facility] Comment on above: Order Comment: Order Added by Discern Expert. Performed By: #### 1 8318491, 5830903, 3631442, 6988139, 1133706, 50145560, 8577393, 3421191, 11267853, 4527440 ####[address] [place] [address] Monocytes/Leukocytes Auto (Bld) [Pure # fraction] 1.3 E9/L High 0.2-1.0 [facility] Comment on above: Order Comment: Order Added by Discern Expert. Performed By: #### 1 8898821, 4685511, 1896190, 9508715, 3530579, 72971616, 0344366, 4349802, 88977551, 4067870 ####[facility] [address] [place] [address] Neutrophils/100 WBC (Bld) 46.5 % Normal 36.0-75.0 [facility] Comment on above: Order Comment: Order Added by Discern Expert. Performed By: #### 1 8087997, 4854682, 8495638, 8846660, 6765574, 37902091, 8009579, 9256704, 57983490, 2402354 ####[address] [place] [address] Neutrophils/Leukocyte s Auto (Bld) [Pure # fraction] 5.8 E9/L Normal 2.0-7.5 [facility] Comment on above: Order Comment: Order Added by Discern Expert. Performed By: #### 1 0527941, 6811061, 5960660, 8868380, 8066696, 91470589, 8636062, 1163504, 10042326, 5442067 ####[address] [place] [address] B hCG Qualon 08-17-2022 Beta hCG Ql Negative Normal [facility] Comment on above: Performed By: #### 1 9819924, 3054751, 6495942, 9594660, 9218319, 36458188, 4855729, 5915121, 00809669, 3982160 ####[facility] [address] [place] [address] BMPon 08-17-2022 Anion gap [Moles/Vol] 12 mmol/L Normal 6-16 [facility] Comment on above: Performed By: #### 2 645035, 4547264, 2903469, 74970830, 4279658, 5827160, 87539573, 13108032 ####[facility] [address] [place] [address] Calcium [Mass/Vol] 8.6 mg/dL Low 8.9-11.1 [facility] Comment on above: Performed By: #### 2 026194, 6447566, 3290992, 24382488, 4858198, 6990755, 60556698, 04711654 ####[facility] [address] [place] [address] Chloride [Moles/Vol] 106 mmol/L Normal 101-111 [facility] Comment on above: Performed By: #### 2 031637, 4943457, 0823166, 96955530, 5464258, 8627134, 85243835, 10468209 ####[facility] [address] [place] [address] CO2 [Moles/Vol] 22 mmol/L Normal 21-31 [facility] Comment on above: Performed By: #### 2 482178, 7528761, 5824026, 30886443, 3538628, 8669674, 77496193, 93219319 ####[facility] [address] [place] [address] Creatinine [Mass/Vol] 0.7 mg/dL Normal 0.5-1.3 [facility] Comment on above: Performed By: #### 2 967442, 2306136, 3809317, 20364886, 3664795, 6681614, 03791665, 84398813 ####[facility] [address] [place] [address] Glucose [Mass/Vol] 90 mg/dL Normal 55-199 [facility] Comment on above: Result Comment: If t his glucose result represents a fasting glucose, interpretation should refer to the following reference range: 55-99 mg/dL Performed By: #### 2 564877, 7542842, 2706563, 12287245, 3911784, 3179632, 45697815, 69163013 ####[facility] [address] [place] [address] Potassium [Moles/Vol] 4.2 mmol/L Normal 3.5-5.3 [facility] Comment on above: Performed By: #### 2 728679, 5770185, 6835922, 44234059, 1083330, 3784622, 61495066, 00655499 ####[facility] [address] [place] [address] Sodium [Moles/Vol] 136 mmol/L Normal 135-145 [facility] Comment on above: Performed By: #### 2 614920, 3051953, 7130040, 56538707, 0430812, 2581006, 79873971, 72115058 ####[facility] [address] [place] [address] Urea nitrogen [Mass/Vol] 18 mg/dL Normal 5-21 [facility] Comment on above: Performed By: #### 2 771932, 3290692, 5220092, 36526020, 5197232, 3970962, 86288429, 66549911 ####[facility] [address] [place] [address] Urea nitrogen/Creatinine [Mass ratio] 26 No Units High 10-20 [facility] Comment on above: Performed By: #### 2 756769, 8083695, 7474272, 37480161, 9104956, 1418198, 70731281, 02367440 ####[facility] [address] [place] [address] Creatinine [Mass/Vol] 1.1 mg/dL Normal 0.5-1.3 [facility] Comment on above: Performed By: #### 1 0478768, 0585621, 5744151, 4026687, 3084048, 69231795, 7537959, 4786792, 09347483, 6619492 ####[facility] [address] [place] [address] Urea nitrogen [Mass/Vol] 27 mg/dL High 5-21 [facility] Comment on above: Performed By: #### 1 3406901, 4205198, 6130988, 1743162, 0083348, 84894543, 2091760, 1860234, 72990336, 1783228 ####[facility] [address] [place] [address] Urea nitrogen/Creatinine [Mass ratio] 24 No Units High 10-20 [facility] Comment on above: Performed By: #### 1 3424714, 1218272, 2374245, 0717264, 0101540, 60475917, 3556822, 0800209, 72987532, 1680087 ####[facility] [address] [place] [address] Anion gap [Moles/Vol] 15 mmol/L Normal 6-16 [facility] Comment on above: Performed By: #### 1 3684194, 7346651, 6371767, 0523560, 6291219, 70652730, 7927235, 9575864, 30567500, 3692950 ####[facility] [address] [place] [address] Calcium [Mass/Vol] 9.2 mg/dL Normal 8.9-11.1 [facility] Comment on above: Performed By: #### 1 8851995, 4968813, 4513081, 8668538, 0582339, 40489525, 2522903, 4474573, 62388061, 5395611 ####[facility] [address] [place] [address] Chloride [Moles/Vol] 103 mmol/L Normal 101-111 [facility] Comment on above: Performed By: #### 1 1042047, 5165068, 9986532, 3518649, 4757693, 56417146, 4937956, 1746234, 76939678, 2689110 ####[facility] [address] [place] [address] CO2 [Moles/Vol] 22 mmol/L Normal 21-31 [facility] Comment on above: Performed By: #### 1 4913293, 3429873, 9020313, 0361061, 9591448, 30780660, 3936153, 0578365, 14737689, 0568383 ####[facility] [address] [place] [address] Glucose [Mass/Vol] 64 mg/dL Normal 55-199 [facility] Comment on above: Result Comment: If t his glucose result represents a fasting glucose, interpretation should refer to the following reference range: 55-99 mg/dL Performed By: #### 1 5405114, 1460473, 9205905, 7396477, 4557098, 87701860, 6707430, 0907571, 18864868, 2313155 ####[facility] [address] [place] [address] Potassium [Moles/Vol] 3.7 mmol/L Normal 3.5-5.3 [facility] Comment on above: Performed By: #### 1 4284349, 4001993, 6193018, 9118026, 1533381, 32293023, 2201227, 3154764, 66489293, 4098540 ####[facility] [address] [place] [address] Sodium [Moles/Vol] 136 mmol/L Normal 135-145 [facility] Comment on above: Performed By: #### 1 8311268, 5749762, 3708728, 7512207, 1082286, 11427960, 1692634, 5489161, 82587294, 3083671 ####[facility] [address] [place] [address] CBC w/ Auto Diffon 3 Erythrocyte distribution width (RBC) [Ratio] 14.0 % Normal 10.9-14.2 [facility] Comment on above: Performed By: #### 2 352633, 2126640, 8875432, 72269745, 4274898, 0789937, 73073460, 33319928 ####[facility] [address] [place] [address] Hematocrit (Bld) [Volume fraction] 39.1 % Normal 34.0-46.0 [facility] Comment on above: Performed By: #### 2 997372, 3688870, 4076783, 76554801, 8944804, 8278496, 82998817, 42581090 ####[address] [place] [address] Hemoglobin (Bld) [Mass/Vol] 13.3 g/dL Normal 12.0-16.0 [facility] Comment on above: Performed By: #### 2 618246, 2615170, 8118386, 72539273, 9791172, 7433573, 08002982, 15922196 ####[address] [place] [address] MCH (RBC) [Entitic mass] 31.4 pg Normal 27.0-34.0 [facility] Comment on above: Performed By: #### 2 512526, 1093455, 3421252, 10663755, 1438505, 6061923, 08082625, 24813515 ####[address] [address] MCHC (RBC) [Mass/Vol] 34.2 g/dL Normal 31.4-36.0 [facility] Comment on above: Performed By: #### 2 077983, 4535236, 9113051, 42054193, 5397708, 2771523, 27679741, 01375866 ####[address] [address] MCV (RBC) [Entitic vol] 91.9 fL Normal 80.0-100.0 [facility] Comment on above: Performed By: #### 2 272712, 1394793, 8472834, 53917866, 8130046, 3103742, 37663606, 68527406 ####[address] [address] Platelet mean volume (Bld) [Entitic vol] 8.2 fL Normal 6.4-10.8 [facility] Comment on above: Performed By: #### 2 120181, 0514215, 2832263, 78059732, 0388330, 9101951, 83574833, 08111678 ####[address] [place] [address] Platelets (Bld) [#/Vol] 181.0 E9/L Normal 150.0-500.0 [facility] Comment on above: Performed By: #### 2 371153, 5322079, 6337682, 41950649, 2972138, 3941665, 67742119, 55024968 ####[address] [place] [address] RBC (Bld) [#/Vol] 4.2 E12/L Low 4.3-5.9 [facility] Comment on above: Performed By: #### 2 673439, 5983210, 0639699, 04045363, 5496530, 7962327, 54766711, 11693996 ####[address] [address] WBC corrected for nucl RBC Auto (Bld) [#/Vol] 6.9 E9/L Normal 4.0-11.0 [facility] Comment on above: Performed By: #### 2 838695, 5030301, 6770273, 39079991, 1759513, 3860551, 27560745, 57224462 ####[address] [place] [address] Erythrocyte distribution width (RBC) [Ratio] 13.6 % Normal 10.9-14.2 [facility] Comment on above: Performed By: #### 1 7142144, 1917978, 7421635, 7552371, 2978666, 69750410, 5688325, 0257248, 82429528, 6630329 ####[address] [place] [address] Hematocrit (Bld) [Volume fraction] 39.8 % Normal 34.0-46.0 [facility] Comment on above: Performed By: #### 1 1240301, 3727045, 2289515, 1547729, 8889592, 95250494, 6141872, 6250318, 83329007, 3996702 ####[address] [place] [address] Hemoglobin (Bld) [Mass/Vol] 13.6 g/dL Normal 12.0-16.0 [facility] Comment on above: Performed By: #### 1 1431005, 8295882, 6246256, 1772243, 4693542, 68303458, 7448184, 2506234, 83909885, 3692074 ####[address] [place] [address] MCH (RBC) [Entitic mass] 31.5 pg Normal 27.0-34.0 [facility] Comment on above: Performed By: #### 1 1160682, 3929267, 6129104, 7745077, 8660149, 95120715, 6327783, 4010550, 56239831, 2764874 ####[address] [address] MCHC (RBC) [Mass/Vol] 34.1 g/dL Normal 31.4-36.0 [facility] Comment on above: Performed By: #### 1 5642357, 9401419, 0473663, 7154633, 7935336, 19901276, 2869814, 5050230, 07505503, 8357096 ####[address] [address] MCV (RBC) [Entitic vol] 92.3 fL Normal 80.0-100.0 [facility] Comment on above: Performed By: #### 1 9322948, 2459196, 4817403, 8753361, 2955650, 38612828, 7084886, 6476563, 96147000, 7922794 ####[address] [place] [address] Platelet mean volume (Bld) [Entitic vol] 8.7 fL Normal 6.4-10.8 [facility] Comment on above: Performed By: #### 1 7891539, 4083650, 8010589, 5151440, 9492060, 78121670, 1807666, 8623631, 03336050, 6475720 ####[facility] [address] [place] [address] Platelets (Bld) [#/Vol] 243.0 E9/L Normal 150.0-500.0 [facility] Comment on above: Performed By: #### 1 7808827, 6808539, 9704253, 9562653, 6936866, 24536795, 1699077, 2997359, 76784168, 9711628 ####[facility] [address] [place] [address] RBC (Bld) [#/Vol] 4.3 E12/L Normal 4.3-5.9 [facility] Comment on above: Performed By: #### 1 4077412, 4393271, 5020699, 8183801, 7984079, 65086329, 7341117, 7705240, 04540681, 2572138 ####[facility] [address] [place] [address] WBC corrected for nucl RBC Auto (Bld) [#/Vol] 12.6 E9/L High 4.0-11.0 [facility] Comment on above: Result Comment: Slid e reviewed by HANNAH. Performed By: #### 1 5915698, 1311518, 1490980, 8845317, 0237238, 48923895, 2436026, 0533420, 67550707, 9813749 ####[facility] [address] [place] [address] CHEMISTRYOrdered By: SYSTEM SYSTEM on 08-17-2022 Ammonia [...] 69 mL/min/1.73 m2 Normal >=59mL/min/1 .73 m2 [facility] Chem S Globulin (S) [Mass/Vol] 3.7 g/dL [...] CT Head or Brain w/o Contrast Normal [facility] Consent for Treatmenton Consent for Treatment [id number] :127 Normal [facility] Consultation Noteon 08-18-19 Consultation Note Normal [facility] Comment on above: Result Comment: Elec tronically Signed By: Bekah Billings RN\.ella\Date and Time Signed: 08/17/22 10:14 EDT\.br\Electronically Co-Signed By: Jonathan Patel DO\.ella\Date and Time Co-Signed: 08/17/22 11:06 EDT ED Clinical Summaryon 2022 ED Clinical Summary Normal Robby soliman [facility] ED Note-Physicianon 08-18-19 ED Note-Physician Normal [facility] Comment on above: Result Comment: Elec tronically Signed By: Darren Guzman DO\Date and Time Signed: 08/17/22 04:38 EDT ED Patient Education Noteon 08-17-2022 ED Patient Education Note Normal [facility] ED Patient Summaryon 023 ED Patient Summary Normal [facility] Ethanolon 08-17-2022 Ethanol [Mass/Vol] mg/dL Normal <=7 [facility] Comment on above: Performed By: #### 2 460264 ####[facility] [address] [place] [address] HEMATOLOGYOrdered By: SYSTEM SYSTEM on 08-17-2022 Basophils/100 [...] 08-17-2022 Albumin [Mass/Vol] 4.2 g/dL Normal 3.3-5.0 [facility] Comment on above: Performed By: #### 1 0279972, 1415845, 3752428, 4091001, 0656142, 24432622, 5932758, 4069845, 72716065, 7381919 ####[facility] [address] [place] [address] Albumin/Globulin (S) [Mass conc ratio] 1.1 Normal 1.1-2.2 [facility] Comment on above: Performed By: #### 1 6599180, 9773986, 3609615, 1875707, 7809294, 78985680, 0547199, 3356276, 46980685, 3330470 ####[facility] [address] [place] [address] ALP [Catalytic activity/Vol] 83 Int._Unit/L Normal 21-98 [facility] Comment on above: Performed By: #### 1 4641649, 8161396, 6697705, 5232355, 7930599, 67572555, 7904210, 0263058, 54283261, 0987091 ####[facility] [address] [place] [address] ALT No additional P-5'-P [Catalytic activity/Vol] 139 Int._Unit/L High 6-46 [facility] Comment on above: Performed By: #### 1 6222411, 7210035, 0688068, 8829996, 1080389, 79092307, 9578975, 0561234, 46201793, 7312957 ####[facility] [address] [place] [address] AST [Catalytic activity/Vol] 146 Int._Unit/L High 5-43 [facility] Comment on above: Performed By: #### 1 1556590, 4791961, 7193389, 5830256, 6516347, 21882488, 3449353, 8677712, 91386335, 0779986 ####[facility] [address] [place] [address] Bilirubin [Mass/Vol] 1.0 mg/dL Normal 0.0-1.1 [facility] Comment on above: Performed By: #### 1 6496918, 3999818, 2388478, 6630573, 8788671, 29223074, 8223214, 8548916, 86226046, 0695814 ####[facility] [address] [place] [address] Bilirubin.direct [Mass/Vol] 0.3 mg/dL Normal 0.1-0.4 [facility] Comment on above: Performed By: #### 1 2797093, 5259838, 6659054, 3908250, 9298384, 75066946, 6807872, 0643877, 20512325, 6137089 ####[facility] [address] [place] [address] Bilirubin.indirect [Mass or moles/Vol] 0.7 mg/dL Normal 0.1-0.9 [facility] Comment on above: Performed By: #### 1 0112968, 4618521, 3165081, 3436400, 2277183, 85577554, 7803970, 0379417, 19718870, 6684406 ####[facility] [address] [place] [address] Globulin (S) [Mass/Vol] 3.7 g/dL Normal 1.4-4.0 [facility] Comment on above: Performed By: #### 1 7649169, 1656662, [id number], [id number], 1496115, [id number], 7971913, 1463126, [id number], [id number] ####[facility] [address] [place] [address] Protein [Mass/Vol] 7.9 g/dL High 6.0-7.8 [facility] Comment on above: Performed By: #### 1 [id number], [id number], [id number], 1966230, [id number], [id number], 9859976, 2808498, [id number], [id number] ####[facility] [address] [place] [address] Interdisciplinary Note - Alonso e Manageron 08-17-2022 Interdisciplinary Note - Visiting Housekeeper Normal [facility] Comment on above: Result Comment: Elec tronically Signed By: Jere BAUTISTA, Ernestina\.br\Date and Time Signed: 08/17/22 11:06 EDT Interdisciplinary Note - Soc ial Workeron 08-17-2022 Interdisciplinary Note - Recorder Helper [employer] Normal [facility] Pre-Arrival Noteon Pre-Arrival Note Normal [facility] RAD - Preliminary Cat Scan R eporton 08-17-2022 RAD - Preliminary Cat Scan Report [id number]: 127 Normal [facility] SEROLOGYOrdered By: Monica Earl on 08-17-2022 Beta hCG Ql Negative (08/17/22 12:29 AM) Normal [facility] Man Sero Salicylateon 08-17-2022 Salicylates [Mass/Vol] mg/dL Low 6-29 [facility] Comment on above: Performed By: #### 1 5618404, 6337573, 6021020, 4556531, 0028319, 71962471, 3811748, 8899920, 14471020, 3780330 ####[facility] [address] [place] [address] Sed Rate Automatedon 023 Sed Rate Automated 7 mm/hr Normal 0-34 [facility] Comment on above: Performed By: #### 2 512503, 0391282, 0395446, 44861803, 9440124, 0690712, 09099364, 88999491 ####[facility] [address] [place] [address] TSH With T4fr Reflexon 08-17 TSH Qn 1.49 m[IU]/L Normal 0.34-5.60 [facility] Comment on above: Performed By: #### 2 252884, 5362059, 5919047, 74081098, 6803289, 5460619, 54815567, 09733865 ####[facility] [address] [place] [address] Troponin 0 Hr.on 08-17-2022 Troponin I.cardiac [Mass/Vol] 8.00 pg/mL Low 10.10-27.10 [facility] Comment on above: Order Comment: per p t combative/uncooperative per Dr. Guzman waiting for meds to be administered before trying iv/bloodwork. ER to notify me when ready...[facility] 08/16/2022 23:46:16 EDT Result Comment: The 95% CI (Confidence Interval) PPV (Positive Predictive Value) for myocardial infarction in females is 38 pg/mL, in males 51 pg/mL. The results should be used in conjunction with clinical conditions of myocardial infarction.(Access High Sensitivity Troponin I Instructions For Use, [employer], September 2017) Performed By: #### 1 6606595, 9697344, 5068207, 4644718, 3645874, 48843981, 7741048, 7039165, 21545591, 1988221 ####[facility] [address] [place] [address] U Drug Screenon 08-17-2022 Amphetamines Screen method >1000 ng/mL Ql (U) Positive Abnormal Negative [facility] Comment on above: Result Comment: Crit ical Result verified by repeat analysis\Critical Result UD_AMPH:POS Called to [facility] AT ER by MONICA EARL And Read Back For Confirmation at: 08/17/2022 03:58:19Negative Cutoff: <1000 ng/mL Performed By: #### 2 607455 ####[facility] [address] [place] [address] Cocaine Ql (U) Positive Abnormal Negative [facility] Comment on above: Result Comment: Crit ical Result verified by repeat analysis\Critical Result UD_COCM:POS Called to [facility] AT ER by MONICA EARL And Read Back For Confirmation at: 08/17/2022 03:58:19Negative Cutoff: <300 ng/mL Performed By: #### 2 965296 ####[facility] [address] [place] [address] Barbiturates Screen Ql (U) Negative Normal Negative [facility] Comment on above: Result Comment: Nega tive Cutoff: <200 ng/mL Performed By: #### 2 487654 ####[facility] [address] [place] [address] Benzodiazepines Ql (U) Negative Normal Negative [facility] Comment on above: Result Comment: Nega tive Cutoff: <200 ng/mL Performed By: #### 2 311369 ####[facility] [address] [place] [address] Opiates Screen Ql (U) Negative Normal Negative [facility] Comment on above: Result Comment: Nega tive Cutoff: <300 ng/mL Performed By: #### 2 626624 ####[address] [place] [address] Phencyclidine Screen method >25 ng/mL Ql (U) Negative Normal Negative [facility] Comment on above: Result Comment: Nega tive Cutoff: <25 ng/mLThese drug screen results are to be used for medical (i.e., treatment) purposes only. Unconfirmed drug screening results must not be used for non-medical purposes (e.g., employment testing, legal testing). Performed By: #### 2 980820 ####[address] [place] [address] Tetrahydrocannabinol Screen method >50 ng/mL Ql (U) Negative Normal Negative [facility] Comment on above: Result Comment: Nega tive Cutoff: <50 ng/mL Performed By: #### 2 605401 ####[facility] [address] [place] [address] UA With Cult Reflexon 2022 Bilirubin Ql (U) Negative Normal Negative [facility] Comment on above: Performed By: #### 1 9856610 ####[facility] [address] [place] [address] Clarity (U) CLEAR Normal Clear [facility] Comment on above: Performed By: #### 1 0637962 ####[facility] [address] [place] [address] Color (U) YELLOW Normal Yellow [facility] Comment on above: Performed By: #### 1 8393935 ####[facility] [address] [place] [address] Crystals LM Ql (Urine sed) Present Normal [facility] Comment on above: Performed By: #### 1 9579115 ####[address] [place] [address] Epithelial cells.squamous LM.HPF (Urine sed) [#/Area] 0-2 Normal 0-2 [facility] Comment on above: Performed By: #### 1 6238316 ####[facility] [address] [place] [address] Glucose Test strip (U) [Mass/Vol] Negative Normal Negative [facility] Comment on above: Performed By: #### 1 0775256 ####[address] [address] Hemoglobin Ql (U) Negative Normal Negative [facility] Comment on above: Performed By: #### 1 6146556 ####[facility] [address] [place] [address] Ketones (U) [Mass/Vol] Negative Normal Negative [facility] Comment on above: Performed By: #### 1 5222347 ####[address] [place] [address] Sloan.plasma/Lithiu m.RBC (Bld) [Mass ratio] 0-3 Normal 0-3 [facility] Comment on above: Performed By: #### 1 3715770 ####[facility] [address] [place] [address] Nitrite Ql (U) Negative Normal Negative [facility] Comment on above: Performed By: #### 1 2850303 ####[facility] [address] [place] [address] pH (U) 5.5 [pH] Invalid Interpretation Code 5.0-9.0 [facility] Comment on above: Performed By: #### 1 5824800 ####[facility] [address] [place] [address] Protein (U) [Mass/Vol] Negative Normal Negative [facility] Comment on above: Performed By: #### 1 7770952 ####[address] [address] Specific gravity (U) [Rel density] 1.020 Invalid Interpretation Code 1.005-1.030 [facility] Comment on above: Performed By: #### 1 1182256 ####[address] [address] Type of Urine collection method Clean Catch Normal [facility] Comment on above: Performed By: #### 1 2827214 ####[address] [address] Urobilinogen Qn (U) 0.2 {Surinder'U}/dL Normal 0.0-1.0 [facility] Comment on above: Performed By: #### 1 0871369 ####[address] [address] WBC Auto Ql (U) Negative Normal Negative [facility] Comment on above: Performed By: #### 1 3049007 ####[address] [address] WBC LM.HPF (Urine sed) [#/Area] 0-5 Normal 0-5 [facility] Comment on above: Performed By: #### 1 7126188 ####[address] [address] URINALYSISOrdered By: Too Earl on 08-17-2022 Bilirubin [...] AM) Normal Negative [facility] UA Auto SS Sloan.plasma/Lithiu m.RBC (Bld) [Mass ratio] 0-3 /HPF Normal [...] [facility] UA Auto SS Urobilinogen Qn (U) 0.6464639 {Surinder'U}/dL Normal 0.0 - 1.0 EU/dL [facility] UA Auto SS WBC Auto Ql (U) Negative (08/17/22 3:01 AM) Normal Negative [facility] UA Auto SS WBC LM.HPF (Urine sed) [#/Area] 0-5 /HPF Normal 0-5/HPF [facility] UA Auto SS Vit B12on 08-17-2022 Cobalamin (Vitamin B12) [Mass/Vol] 384 pg/mL Normal 50-1500 [facility] Comment on above: Performed By: #### 2 593898, 2095950, 0047124, 92217227, 5235353, 8302840, 49794135, 17406431 ####[facility] [address] [place] [address] XR Chest Single Viewon 08-17 XR Chest Single View Normal [facility] eGFRon 08-17-2022 GFR/1.73 sq M.predicted among non-blacks MDRD (S/P/Bld) [Vol rate/Area] 119 mL/min/1.73 m2 Normal >=59 [facility] Comment on above: Order Comment: Order added by Discern Expert. Result Comment: Sugarcane Planter justin kidney disease could be indicated at eGFR's of less than 60 mL/min/1.73m2. Kidney failure is indicated at less than 15 mL/min/1.73m2. Performed By: #### 2 754796, 5633830, 9068051, 92658090, 5682507, 0485723, 00119571, 20428488 ####[facility] [address] [place] [address] GFR/1.73 sq M.predicted among non-blacks MDRD (S/P/Bld) [Vol rate/Area] 69 mL/min/1.73 m2 Normal >=59 [facility] Comment on above: Order Comment: Order added by Discern Expert. Result Comment: Sugarcane Planter justin kidney disease could be indicated at eGFR's of less than 60 mL/min/1.73m2. Kidney failure is indicated at less than 15 mL/min/1.73m2. Performed By: #### 1 9141638, 6938423, 3133123, 9817252, 7697167, 20862199, 4396752, 5146112, 26000232, 9284839 ####[facility] [address] [place] [address] ED Note-Physicianon 08-17-19 ED Note-Physician Normal [facility] Comment on above: Result Comment: Elec tronically Signed By: Colin Fernandez PA-C\.br\Date and Time Signed: 08/15/22 20:22 EDT\.br\Electronically Co-Signed By: Isai Hall DO\.br\Date and Time Co-Signed: 08/16/22 06:53 EDT Family Medicine Office/Clini c Noteon 08-16-2022 Family Medicine Office/Clinic Note Normal [facility] Comment on above: Result Comment: Elec tronically Signed By: Amanda BARRIOS CNP\.br\Date and Time Signed: 08/16/22 10:22 EDT\.br\Electronically Co-Signed By: H[employer]\.br\Date and Time Co-Signed: 08/13/22 17:08 EDT Auto Diffon 08-15-2022 Basophils/100 WBC (Bld) 1.1 % Normal 0.0-2.0 [facility] Comment on above: Order Comment: Order Added by Discern Expert. Performed By: #### 2 079890, 6042790, 66296509, 2615916, 7136368, 10861626 ####[facility] [address] [place] [address] Basophils/Leukocytes Auto (Bld) [Pure # fraction] 0.1 E9/L Normal 0.0-0.2 [facility] Comment on above: Order Comment: Order Added by Discern Expert. Performed By: #### 2 543514, 2717115, 49361613, 5004016, 7049194, 13256256 ####[facility] [address] [place] [address] Eosinophils/100 WBC (Bld) 1.3 % Normal 0.0-8.0 [facility] Comment on above: Order Comment: Order Added by Radha Expert. Performed By: #### 2 448323, 3111623, 27830641, 0815203, 8211504, 79080407 ####[facility] [address] [place] [address] Eosinophils/Leukocyte s Auto (Bld) [Pure # fraction] 0.1 E9/L Normal 0.0-0.5 [facility] Comment on above: Order Comment: Order Added by Radha Expert. Performed By: #### 2 166242, 3115252, 37824446, 2935909, 1997631, 95865207 ####[facility] [address] [place] [address] Lymphocytes/100 WBC (Bld) 45.6 % Normal 14.0-50.0 [facility] Comment on above: Order Comment: Order Added by Discern Expert. Performed By: #### 2 657658, 6499966, 74554961, 5060305, 7230934, 75096103 ####[address] [place] [address] Lymphocytes/Leukocyte s Auto (Bld) [Pure # fraction] 3.2 E9/L Normal 1.0-4.0 [facility] Comment on above: Order Comment: Order Added by Discern Expert. Performed By: #### 2 239743, 0136578, 82925995, 7274565, 1177257, 55049419 ####[address] [address] Monocytes/100 WBC (Bld) 8.4 % Normal 4.0-14.0 [facility] Comment on above: Order Comment: Order Added by Radha Expert. Performed By: #### 2 075121, 8787011, 11252333, 3032796, 9009253, 04061158 ####[address] [address] Monocytes/Leukocytes Auto (Bld) [Pure # fraction] 0.6 E9/L Normal 0.2-1.0 [facility] Comment on above: Order Comment: Order Added by Rdaha Expert. Performed By: #### 2 231395, 7048272, 76446596, 7160414, 7119929, 60029434 ####[address] [address] Neutrophils/100 WBC (Bld) 43.6 % Normal 36.0-75.0 [facility] Comment on above: Order Comment: Order Added by Rahda Expert. Performed By: #### 2 475156, 3068100, 63637027, 1916678, 5838330, 53771736 ####[address] [place] [address] Neutrophils/Leukocyte s Auto (Bld) [Pure # fraction] 3.0 E9/L Normal 2.0-7.5 [facility] Comment on above: Order Comment: Order Added by Discern Expert. Performed By: #### 2 490432, 8259903, 33813707, 0622769, 0914697, 55857878 ####[facility] [address] [place] [address] BMPon 08-15-2022 Anion gap [Moles/Vol] 15 mmol/L Normal 6-16 [facility] Comment on above: Performed By: #### 2 415212, 0951680, 41568364, 1677645, 4217015, 32696597 ####[facility] [address] [place] [address] Calcium [Mass/Vol] 9.8 mg/dL Normal 8.9-11.1 [facility] Comment on above: Performed By: #### 2 504707, 5677486, 46988457, 7834552, 8044192, 79952925 ####[facility] [address] [place] [address] Chloride [Moles/Vol] 105 mmol/L Normal 101-111 [facility] Comment on above: Performed By: #### 2 499237, 9257663, 09734532, 1088441, 5529336, 93985302 ####[facility] [address] [facility] [place] [address] CO2 [Moles/Vol] 23 mmol/L Normal 21-31 [facility] Comment on above: Performed By: #### 2 570062, 5563246, 42110443, 2680349, 2331716, 60436418 ####[facility] [address] [facility] [place] [address] Creatinine [Mass/Vol] 1.0 mg/dL Normal 0.5-1.3 [facility] Comment on above: Performed By: #### 2 298445, 8312977, 91515924, 3500803, 8094324, 67537277 ####[facility] [address] [facility] [place] [address] Glucose [Mass/Vol] 113 mg/dL Normal 55-199 [facility] Comment on above: Result Comment: If t his glucose result represents a fasting glucose, interpretation should refer to the following reference range: 55-99 mg/dL Performed By: #### 2 277162, 3259767, 37048719, 8847439, 7757939, 58641800 ####[facility] [address] [place] [address] Potassium [Moles/Vol] 4.1 mmol/L Normal 3.5-5.3 [facility] Comment on above: Result Comment: 'Spe cimen hemolyzed. Result may be affected. Redraw is recommended.' Performed By: #### 2 156681, 1903978, 22772576, 0485842, 7867642, 77829362 ####[facility] [address] [place] [address] Sodium [Moles/Vol] 139 mmol/L Normal 135-145 [facility] Comment on above: Performed By: #### 2 195578, 0726458, 70192233, 9895722, 1606264, 37595915 ####[facility] [address] [place] [address] Urea nitrogen [Mass/Vol] 18 mg/dL Normal 5-21 [facility] Comment on above: Performed By: #### 2 873173, 2488383, 90616620, 0622475, 6594541, 45104244 ####[facility] [address] [place] [address] Urea nitrogen/Creatinine [Mass ratio] 18 No Units Normal 10-20 [facility] Comment on above: Performed By: #### 2 182539, 0778232, 61915375, 2471717, 3633812, 54227220 ####[facility] [address] [place] [address] CBC w/ Auto Diffon 3 Erythrocyte distribution width (RBC) [Ratio] 13.7 % Normal 10.9-14.2 [facility] Comment on above: Order Comment: Clott ed specimen. Redraw ordered. MLB Performed By: #### 2 931254, 9653712, 03234622, 4420497, 3458069, 71630893 ####[facility] [address] [place] [address] Hematocrit (Bld) [Volume fraction] 38.8 % Normal 34.0-46.0 [facility] Comment on above: Order Comment: Clott ed specimen. Redraw ordered. MLB Performed By: #### 2 552387, 4903496, 10077604, 6784093, 1105916, 33227692 ####[facility] [address] [place] [address] Hemoglobin (Bld) [Mass/Vol] 13.3 g/dL Normal 12.0-16.0 [facility] Comment on above: Order Comment: Clott ed specimen. Redraw ordered. MLB Performed By: #### 2 437098, 0174770, 60604719, 3189873, 9443042, 63011533 ####[facility] [address] [place] [address] MCH (RBC) [Entitic mass] 31.6 pg Normal 27.0-34.0 [facility] Comment on above: Order Comment: Clott ed specimen. Redraw ordered. MLB Performed By: #### 2 519701, 8908014, 29514486, 3631062, 3113131, 09243846 ####[facility] [address] [place] [address] MCHC (RBC) [Mass/Vol] 34.4 g/dL Normal 31.4-36.0 [facility] Comment on above: Order Comment: Clott ed specimen. Redraw ordered. MLB Performed By: #### 2 710021, 6656699, 48141903, 5075739, 9809053, 55251608 ####[facility] [address] [place] [address] MCV (RBC) [Entitic vol] 91.9 fL Normal 80.0-100.0 [facility] Comment on above: Order Comment: Clott ed specimen. Redraw ordered. MLB Performed By: #### 2 975944, 7727765, 24213609, 5422354, 5998382, 19622313 ####[facility] [address] [place] [address] Platelet mean volume (Bld) [Entitic vol] 7.9 fL Normal 6.4-10.8 [facility] Comment on above: Order Comment: Clott ed specimen. Redraw ordered. MLB Performed By: #### 2 099246, 5288253, 44573967, 7282078, 3679617, 69123061 ####[facility] [address] [place] [address] Platelets (Bld) [#/Vol] 202.0 E9/L Normal 150.0-500.0 [facility] Comment on above: Order Comment: Clott ed specimen. Redraw ordered. MLB Performed By: #### 2 292477, 7611376, 51930226, 8360683, 1644836, 69999721 ####[facility] [address] [place] [address] RBC (Bld) [#/Vol] 4.2 E12/L Low 4.3-5.9 [facility] Comment on above: Order Comment: Clott ed specimen. Redraw ordered. MLB Performed By: #### 2 605283, 2356028, 50454777, 8485420, 8185572, 99863611 ####[facility] [address] [place] [address] WBC corrected for nucl RBC Auto (Bld) [#/Vol] 6.9 E9/L Normal 4.0-11.0 [facility] Comment on above: Order Comment: Clott ed specimen. Redraw ordered. MLB Performed By: #### 2 602988, 6987363, 76280199, 7025163, 6767625, 65807437 ####[facility] [address] [place] [address] Consent for Treatmenton 070 Consent for Treatment [id number]: 127 Normal [facility] Discharge Instructionson Discharge Instructions [id number]#[id number] D:127 Normal [facility] ED Clinical Summaryon 2022 ED Clinical Summary Normal Robby soliman [facility] ED Note-Nursingon 08-15-2022 ED Note-Nursing Normal [facility] ED Patient Education Noteon 08-15-2022 ED Patient Education Note Normal [facility] ED Patient Summaryon 023 ED Patient Summary Normal [facility] Ethanolon 08-15-2022 Ethanol [Mass/Vol] mg/dL Normal <=7 [facility] Comment on above: Performed By: #### 2 538198 ####[facility] [address] [place] [address] Hep Func Panelon 08-15-2022 Albumin [Mass/Vol] 3.9 g/dL Normal 3.3-5.0 [facility] Comment on above: Performed By: #### 2 170229, 2470986, 87884812, 1433834, 3739383, 09142955 ####[facility] [address] [place] [address] Albumin/Globulin (S) [Mass conc ratio] 1.1 Normal 1.1-2.2 [facility] Comment on above: Performed By: #### 2 924312, 9861740, 63676358, 3330262, 3086212, 15478044 ####[facility] [address] [place] [address] ALP [Catalytic activity/Vol] 85 Int._Unit/L Normal 21-98 [facility] Comment on above: Performed By: #### 2 146218, 5893000, 25538768, 0929422, 2699332, 95801968 ####[facility] [address] [place] [address] ALT No additional P-5'-P [Catalytic activity/Vol] 151 Int._Unit/L High 6-46 [facility] Comment on above: Result Comment: 'Spe cimen hemolyzed, result may be affected. Recommend redraw.' Performed By: #### 2 749789, 6097747, 29738242, 9424994, 6049833, 63069132 ####[facility] [address] [place] [address] AST [Catalytic activity/Vol] 182 Int._Unit/L High 5-43 [facility] Comment on above: Result Comment: 'Spe cimen hemolyzed, result may be affected. Recommend redraw.' Performed By: #### 2 312226, 5819116, 96362112, 2292843, 4817614, 58464682 ####[facility] [address] [place] [address] Bilirubin [Mass/Vol] 1.2 mg/dL High 0.0-1.1 [facility] Comment on above: Result Comment: 'Spe cimen hemolyzed, result may be affected. Redraw is recommended.' Performed By: #### 2 667051, 1596938, 18247719, 2311917, 9991777, 31835217 ####[facility] [address] [place] [address] Bilirubin.direct [Mass/Vol] 0.4 mg/dL Normal 0.1-0.4 [facility] Comment on above: Result Comment: 'Spe cimen hemolyzed, result may be affected. Redraw recommended.' Performed By: #### 2 584776, 2101771, 41249848, 4390490, 4983280, 93984012 ####[facility] [address] [place] [address] Bilirubin.indirect [Mass or moles/Vol] 0.8 mg/dL Normal 0.1-0.9 [facility] Comment on above: Performed By: #### 2 599631, 5557430, 46307424, 7619111, 4657416, 67325369 ####[facility] [address] [place] [address] Globulin (S) [Mass/Vol] 3.5 g/dL Normal 1.4-4.0 [facility] Comment on above: Performed By: #### 2 650402, 9481476, 55197665, 6465429, 5526343, 92169604 ####[facility] [address] [place] [address] Protein [Mass/Vol] 7.4 g/dL Normal 6.0-7.8 [facility] Comment on above: Performed By: #### 2 629538, 7890856, 29058617, 7247289, 8265931, 56855376 ####[address] [place] [address] Outside Recordson 08-15-2022 Outside Records [id number]#[id number] D:127 Normal [facility] Physician Referralon 023 Physician Referral [id number] :127 Normal [facility] Progress Note-Nurseon 2022 Progress Note-Nurse Patient on phone wit h MHP at this time Normal [facility] Troponin 0 Hr.on 08-15-2022 Troponin I.cardiac [Mass/Vol] 4.50 pg/mL Low 10.10-27.10 [facility] Comment on above: Result Comment: The 95% CI (Confidence Interval) PPV (Positive Predictive Value) for myocardial infarction in females is 38 pg/mL, in males 51 pg/mL. The results should be used in conjunction with clinical conditions of myocardial infarction.(Access High Sensitivity Troponin I Instructions For Use, [employer], September 2017) Performed By: #### 2 435331, 6143318, 99907509, 9112045, 8426617, 29675765 ####[facility] [address] [place] [address] Valuables Checkliston 2022 Valuables Checklist [id number] D:127 Normal [facility] XR Chest Single Viewon 08-15 XR Chest Single View Normal [facility] eGFRon 08-15-2022 GFR/1.73 sq M.predicted among non-blacks MDRD (S/P/Bld) [Vol rate/Area] 78 mL/min/1.73 m2 Normal >=59 [facility] Comment on above: Order Comment: Order added by Discern Expert. Result Comment: Sugarcane Planter justin kidney disease could be indicated at eGFR's of less than 60 mL/min/1.73m2. Kidney failure is indicated at less than 15 mL/min/1.73m2. Performed By: #### 2 557680, 9836635, 74020112, 4449414, 4295424, 18951532 ####[facility] [address] [place] [address] Ambulatory Visit Summaryon 0 08-13-2022 Ambulatory Visit Summary Normal [facility] Cholesterol [Mass/volume] in Serum or PlasmaOrdered By: Gautam Burrows on 06-08-2022 Cholesterol [Mass/Vol] 110 mg/dL 140-200 [facility] Comment on above: Chol less than 200 m g/dl low riskChol 201-239 mg/dl borderline riskChol 240 mg/dl and greater high risk Cholesterol in LDL Calc [Mas s/Vol]Ordered By: Gautam Burrows on 06-08-2022 Cholesterol in LDL [Mass/Vol] 53 mg/dL 0-100 [facility] Comment on above: LDL ATP III CLASSIFI CATIONLDL less than 100 mg/dL OptimalLDL 100-129 mg/dL Near or above optimalLDL 130-159 mg/dL Borderline highLDL 160-189 mg/dL HighLDL greater than 189 mg/dL Very high Cholesterol in VLDL Calc [Ma ss/Vol]Ordered By: Gautam Burrows on 06-08-2022 Cholesterol in VLDL [Mass/Vol] 21 mg/dL [facility] Serum or plasma high density lipoprotein (HDL) cholesterol measurementOrdered By: Gautam Burrows on 06-08-2022 Cholesterol in HDL [Mass/Vol] 35 mg/dL 35-85 [facility] Comment on above: HDL CHOL ATP-III CLA SSIFICATION Cardiovascular RiskHDL > or equal to 60 mg/dL LOWHDL < 40 mg/dL HIGH Serum or plasma total choles terol/high density lipoprotein (HDL) cholesterol mass ratOrdered By: Gautam Burrows on 06-08-2022 Cholesterol.total/Cho lesterol in HDL [Mass ratio] 3.1 {ratio} <5.0 [facility] Thyrotropin [Units/volume] i n Serum or PlasmaOrdered By: Gautam Burrows on 06-08-2022 TSH Qn 1.46 m[IU]/L 0.45-5.33 [facility] Triglyceride [Mass/volume] i n Serum or PlasmaOrdered By: Gautam Burrows on 06-08-2022 Triglyceride [Mass/Vol] 109 mg/dL 0-149 [facility] Comment on above: TRIG ATP III CLASSIF ICATIONTRIG less than 150 mg/dL NormalTRIG 150-199 mg/dL Borderline highTRIG 200-500 mg/dL High TRIG greater than 500 mg/dL Very highStandard traceable to the Center for Disease Conrtrol and Prevention (CDC) test method. Vitamin D+Metabolites [Mass/ volume] in Serum or PlasmaOrdered By: Gautam Burrows on 06-08-2022 Vitamin D+Metabolites [Mass/Vol] 23.4 ng/mL 30-100 [facility] Comment on above: VITAMIN D STATUS 25( [...] (PPP) [Time] 30.0 s 25.1-36.5 [facility] Alanine aminotransferase [En zymatic activity/volume] in Serum or PlasmaOrdered By: Ari Aguero on 06-07-2022 ALT [Catalytic activity/Vol] 109 U/L 7-52 [facility] Albumin [Mass/volume] in Ser um or Plasma by Bromocresol green (BCG) dye binding methoOrdered By: Ari Aguero on 06-07-2022 Albumin BCG dye [Mass/Vol] 4.1 g/dL 3.5-5.7 [facility] Alkaline phosphatase [Enzyma tic activity/volume] in Serum or PlasmaOrdered By: Ari Agueor on 06-07-2022 ALP [Catalytic activity/Vol] 87 U/L 34-104 [facility] Amphetamine Screen Ql (U)Ord ered By: Ari Aguero on 06-07-2022 Amphetamines Ql (U) Positive Negative [facility] Aspartate aminotransferase [ Enzymatic activity/volume] in Serum or PlasmaOrdered By: Ari Aguero on 06-07-2022 AST [Catalytic activity/Vol] 122 U/L 13-39 [facility] Automated erythrocytes count in urine sediment (number/area)Ordered By: Ari Aguero on 06-07-2022 RBC Auto (Urine sed) [#/Area] 3-4 [HPF] 0-4 [facility] Automated leukocytes count i n urine sediment (number/area)Ordered By: Ari Aguero on 06-07-2022 WBC Auto (Urine sed) [#/Area] 0-1 [HPF] 0-4 [facility] Automated urine hyaline cast s count (number/volume)Ordered By: Ari Aguero on 06-07-2022 Hyaline casts Auto (U) [#/Vol] 20-49 [LPF] 0-1 [facility] Barbiturates [Presence] in U rine by Screen methodOrdered By: Ari Aguero on 06-07-2022 Barbiturates Screen Ql (U) Negative Negative [facility] Basophils Auto (Bld) [#/Vol] Ordered By: Ari Aguero on 06-07-2022 Basophils (Bld) [#/Vol] 0.1 10*3/uL 0.0-0.2 [facility] Basophils/100 WBC Auto (Bld) Ordered By: Ari Aguero on 06-07-2022 Basophils/100 WBC (Bld) 0.5 % . [facility] Benzodiazepines Screen Ql (U )Ordered By: Ari Aguero on 06-07-2022 Benzodiazepines Ql (U) Negative Negative [facility] Benzoylecgonine [Presence] i n Urine by Screen methodOrdered By: Ari Aguero on 06-07-2022 Benzoylecgonine Screen Ql (U) Negative Negative [facility] Bilirubin Test strip Ql (U)O rdered By: Ari Aguero on 06-07-2022 Bilirubin Ql (U) Negative Negative [facility] Bilirubin.total [Mass/volume ] in Serum or PlasmaOrdered By: Ari Aguero on 06-07-2022 Bilirubin [Mass/Vol] 0.9 mg/dL 0.3-1.0 [facility] Calcium [Mass/volume] in Ser um or PlasmaOrdered By: Ari Aguero on 06-07-2022 Calcium [Mass/Vol] 9.2 mg/dL 8.6-10.3 [facility] Cannabinoids [Presence] in U rine by Screen methodOrdered By: Ari Aguero on 06-07-2022 Cannabinoids Screen Ql (U) Negative Negative [facility] Comment on above: These are unconfirme d results and should not be used for legal purposes. Drug Cut-Off Concentration: AMPH 1000 ng/mL JANELL 200 ng/mL JAMES 200 ng/mL COCM 300 ng/mL OP 300 ng/mL PCP 25 ng/mL THC 20 ng/mL Carbon dioxide, total [Moles /volume] in Serum or PlasmaOrdered By: Ari Aguero on 06-07-2022 CO2 [Moles/Vol] 23.1 mmol/L 21.0-31.0 [facility] Casts typing in urine sedime nt by light microscopyOrdered By: Ari Aguero on 06-07-2022 Casts LM Nom (Urine sed) None seen [LPF] None Seen [facility] Chloride [Moles/volume] in S marbella or PlasmaOrdered By: Ari Aguero on 06-07-2022 Chloride [Moles/Vol] 105 mmol/L 98-107 [facility] Coarse granular casts count in urine sediment by microscopy low power field (number/aOrdered By: Ari Aguero on 06-07-2022 Coarse Granular Casts LM.LPF (Urine sed) [#/Area] 0-1 [LPF] 0-1 [facility] Color Auto (U)Ordered By: Robin red More on 06-07-2022 Color (U) Dark yellow Yellow [facility] Creatinine [Mass/volume] in Serum or PlasmaOrdered By: Ari Aguero on 06-07-2022 Creatinine [Mass/Vol] 0.84 mg/dL 0.60-1.20 [facility] Eosinophils Auto (Bld) [#/Vo l]Ordered By: Ari Aguero on 06-07-2022 Eosinophils (Bld) [#/Vol] 0.0 10*3/uL 0.0-0.45 [facility] Eosinophils/100 WBC Auto (Bl d)Ordered By: Ari Aguero on 06-07-2022 Eosinophils/100 WBC (Bld) 0.2 % . [facility] Erythrocyte distribution wid th Auto (RBC) [Ratio]Ordered By: Ari Aguero on 06-07-2022 Erythrocyte distribution width (RBC) [Ratio] 13.5 % 11.9-15.3 [facility] Ethanol [Mass/volume] in Ser um or PlasmaOrdered By: Ari Aguero on 06-07-2022 Ethanol [Mass/Vol] mg/dL [facility] Ethanol [Mass/Vol] TNP [facility] Comment on above: Test not performed Globulin Calc (S) [Mass/Vol] Ordered By: Ari Aguero on 06-07-2022 Globulin (S) [Mass/Vol] 3.5 g/dL [facility] Glucose [Mass/volume] in Ser um or PlasmaOrdered By: Ari Aguero on 06-07-2022 Glucose [Mass/Vol] 82 mg/dL 70-100 [facility] Comment on above: ADA recommended refe rence rangeRandom Glucose Reference Range is dependent on time and content of last meal. Glucose of more than 200 mg/dL in a nonstressed, ambulatory subject supports the diagnosis of Diabetes Mellitus. HCG ( test) IA.rapi d Ql (U)Ordered By: Ari Aguero on 06-07-2022 HCG ( test) Ql (U) Negative [facility] Hematocrit Auto (Bld) [Volum e fraction]Ordered By: Ari Aguero on 06-07-2022 Hematocrit (Bld) [Volume fraction] 40.7 % 34.0-46.4 [facility] Hemoglobin [Mass/volume] in BloodOrdered By: Ari Aguero on 06-07-2022 Hemoglobin (Bld) [Mass/Vol] 13.6 g/dL 11.8-15.4 [facility] Ketones Auto test strip (U) [Mass/Vol]Ordered By: Ari Aguero on 06-07-2022 Ketones (U) [Mass/Vol] 2+ Negative [facility] Laboratory - CoagulationOrde red By: Ari Aguero on 06-07-2022 PT Coag (PPP) [Time] 12.7 s 9.0-12.9 [facility] Leukocytes [#/volume] correc jose for nucleated erythrocytes in Blood by Automated counOrdered By: Ari Aguero on 06-07-2022 WBC corrected for nucl RBC Auto (Bld) [#/Vol] 13.5 10*3/uL 3.8-11.6 [facility] Lipase [Enzymatic activity/v olume] in Serum or PlasmaOrdered By: Ari Aguero on 06-07-2022 Lipase [Catalytic activity/Vol] 10.0 U/L 11.0-82.0 [facility] Lymphocytes Auto (Bld) [#/Vo l]Ordered By: Ari Aguero on 06-07-2022 Lymphocytes (Bld) [#/Vol] 1.6 10*3/uL 1.00-4.8 [facility] Lymphocytes/100 WBC Auto (Bl d)Ordered By: Ari Aguero on 06-07-2022 Lymphocytes/100 WBC (Bld) 11.6 % . [facility] MCH Auto (RBC) [Entitic mass ]Ordered By: Ari Aguero on 06-07-2022 MCH (RBC) [Entitic mass] 30.6 pg 24.7-34.3 [facility] MCHC Auto (RBC) [Mass/Vol]Or dered By: Ari Aguero on 06-07-2022 MCHC (RBC) [Mass/Vol] 33.4 g/dL 32.0-35.0 [facility] MCV Auto (RBC) [Entitic vol] Ordered By: Air Aguero on 06-07-2022 MCV (RBC) [Entitic vol] 91.7 fL 80-100 [facility] Monocyte distribution width [Entitic volume] in Blood by AutomatedOrdered By: Ari Aguero on 06-07-2022 Monocyte distribution width Auto (Bld) [Entitic vol] 20.34 % 0.00-20.00 [facility] Comment on above: For adults in ED, MD W > 20.0 may be associated with a higher risk of sepsis during the first 12 hrs of hospital admission Monocytes Auto (Bld) [#/Vol] Ordered By: Ari Aguero on 06-07-2022 Monocytes (Bld) [#/Vol] 0.6 10*3/uL 0.0-0.8 [facility] Monocytes/100 WBC Auto (Bld) Ordered By: Ari Aguero on 06-07-2022 Monocytes/100 WBC (Bld) 4.7 % . [facility] Neutrophils Auto (Bld) [#/Vo l]Ordered By: Ari Aguero on 06-07-2022 Neutrophils (Bld) [#/Vol] 11.2 10*3/uL 1.8-7.7 [facility] Neutrophils/100 WBC Auto (Bl d)Ordered By: Ari Aguero on 06-07-2022 Neutrophils/100 WBC (Bld) 83.0 % . [facility] Nitrite Test strip Ql (U)Ord ered By: Ari Aguero on 06-07-2022 Nitrite Ql (U) Negative Negative [facility] No Panel InformationOrdered By: Ari Aguero on 06-07-2022 Estimated GFR (CKD-EPI) > 60.0 mL/Min [facility] Creatinine Clearance (Chem 91.63 [facility] Nucleated erythrocytes [Pres ence] in Blood by Automated countOrdered By: Ari Aguero on 06-07-2022 Nucleated RBC Auto Ql (Bld) 0.1 /100{WBC} 0-0.5 [facility] Opiates [Presence] in Urine by Screen methodOrdered By: Ari Aguero on 06-07-2022 Opiates Screen Ql (U) Negative Negative [facility] Phencyclidine Screen Ql (U)O rdered By: Ari Aguero on 06-07-2022 Phencyclidine Ql (U) Negative Negative [facility] Platelet mean volume Auto (B ld) [Entitic vol]Ordered By: Ari Aguero on 06-07-2022 Platelet mean volume (Bld) [Entitic vol] 8.5 fL 6.3-10.7 [facility] Platelet poor plasma interna tional normalized ratio (INR) by coagulation assay (relatOrdered By: Ari Aguero on 06-07-2022 INR Coag (PPP) [Relative time] 1.1 {INR} [facility] Comment on above: INR Therapeutic Rang e [...] (Bld) [#/Vol] 142 10*3/uL 150-450 [facility] Potassium [Moles/volume] in Serum or PlasmaOrdered By: Ari Aguero on 06-07-2022 Potassium [Moles/Vol] 3.7 mmol/L 3.5-5.1 [facility] Protein Auto test strip (U) [Mass/Vol]Ordered By: Ari Aguero on 06-07-2022 Protein (U) [Mass/Vol] 30 mg/dL Negative [facility] Protein [Mass/volume] in Ser um or PlasmaOrdered By: Ari Aguero on 06-07-2022 Protein [Mass/Vol] 7.6 g/dL 6.4-8.9 [facility] RBC Auto (Bld) [#/Vol]Ordere d By: Ari Aguero on 06-07-2022 RBC (Bld) [#/Vol] 4.44 10*6/uL 3.60-5.[address] [facility] Serum or plasma albumin/glob ulin mass ratioOrdered By: Ari Aguero on 06-07-2022 Albumin/Globulin [Mass ratio] 1.2 {ratio} [facility] Serum or plasma anion gap de terminationOrdered By: Ari Aguero on 06-07-2022 Anion gap [Moles/Vol] 15.6 mmol/L 6.0-15.0 [facility] Sodium [Moles/volume] in Ser um or PlasmaOrdered By: Ari Aguero on 06-07-2022 Sodium [Moles/Vol] 140 mmol/L 136-145 [facility] Specific gravity Auto test s trip (U) [Rel density]Ordered By: Ari Aguero on 06-07-2022 Specific gravity (U) [Rel density] 1.032 1.001-1.030 [facility] Squamous epithelial cells de tection in urine sediment by light microscopyOrdered By: Ari Aguero on 06-07-2022 Epithelial cells.squamous LM Ql (Urine sed) 5-9 [HPF] 0-2 [facility] Urea nitrogen [Mass/volume] in Serum or PlasmaOrdered By: Ari Aguero on 06-07-2022 Urea nitrogen [Mass/Vol] 18 mg/dL 7-25 [facility] Urine bacteria detection by automated methodOrdered By: Ari Aguero on 06-07-2022 Bacteria Auto Ql (U) None seen None Seen [facility] Urine clarity by refractomet ry automatedOrdered By: Ari Aguero on 06-07-2022 Clarity Refractometry automated (U) Clear Clear [facility] Urine glucose measurement by automated test strip (mass/volume)Ordered By: Ari Aguero on 06-07-2022 Glucose Auto test strip (U) [Mass/Vol] Normal mg/dL Normal [facility] Urine hemoglobin detection b y automated test stripOrdered By: Ari Aguero on 06-07-2022 Hemoglobin Auto test strip Ql (U) Negative Negative [facility] Urine leukocyte esterase det ection by automated test stripOrdered By: Ari Aguero on 06-07-2022 Leukocyte esterase Auto test strip Ql (U) Negative Negative [facility] Urine sediment erythrocyte c ast count by microscopy (number/low power field)Ordered By: Ari Aguero on 06-07-2022 RBC casts LM.LPF (Urine sed) [#/Area] 0-1 [LPF] None Seen [facility] Urobilinogen Auto test strip (U) [Mass/Vol]Ordered By: Ari Aguero on 06-07-2022 Urobilinogen (U) [Mass/Vol] Normal mg/dL Normal [facility] WBC Auto (Bld) [#/Vol]Ordere d By: Ari Aguero on 06-07-2022 WBC (Bld) [#/Vol] 13.5 10*3/uL 3.8-11.[address] [facility] pH Auto test strip (U)Ordere d By: Ari Aguero on 06-07-2022 pH (U) 5.5 [pH] 5.0-9.0 [facility] Alanine aminotransferase [En zymatic activity/volume] in Serum or PlasmaOrdered By: Imad Asaad on 04-24-2022 ALT [Catalytic activity/Vol] 48 U/L 7-52 [facility] Albumin [Mass/volume] in Ser um or Plasma by Bromocresol green (BCG) dye binding methoOrdered By: Imad Asaad on 04-24-2022 Albumin BCG dye [Mass/Vol] 4.2 g/dL 3.5-5.7 [facility] Alkaline phosphatase [Enzyma tic activity/volume] in Serum or PlasmaOrdered By: Imad Asaad on 04-24-2022 ALP [Catalytic activity/Vol] 85 U/L 34-104 [facility] Aspartate aminotransferase [ Enzymatic activity/volume] in Serum or PlasmaOrdered By: Imad Asaad on 04-24-2022 AST [Catalytic activity/Vol] 48 U/L 13-39 [facility] Basophils Auto (Bld) [#/Vol] Ordered By: Imad Asaad on 04-24-2022 Basophils (Bld) [#/Vol] 0.1 10*3/uL 0.0-0.2 [facility] Basophils/100 WBC Auto (Bld) Ordered By: Imad Asaad on 04-24-2022 Basophils/100 WBC (Bld) 1.2 % . [facility] Bilirubin.direct [Mass/volum e] in Serum or PlasmaOrdered By: Imad Asaad on 04-24-2022 Bilirubin.direct [Mass/Vol] 0.10 mg/dL 0.03-0.18 [facility] Bilirubin.total [Mass/volume ] in Serum or PlasmaOrdered By: Imad Asaad on 04-24-2022 Bilirubin [Mass/Vol] 0.3 mg/dL 0.3-1.0 [facility] Complete Blood Count Auto Di ffon 04-24-2022 Basophils (Bld) [#/Vol] 0.152561740 10*3/uL Normal 0.0-0.2 10*3/uL [facility] Other Basophils/100 WBC (Bld) 1.200 % . % [facility] Other Eosinophils (Bld) [#/Vol] 0.490548658 10*3/uL Normal 0.0-0.45 10*3/uL [facility] Other Eosinophils/100 WBC (Bld) 1.200 % . % [facility] Other Erythrocyte distribution width (RBC) [Ratio] 13.200 % Normal 11.9-15.3 % [facility] Other Hematocrit (Bld) [Volume fraction] 44.200 % Normal 34.0-46.4 % [facility] Other Hemoglobin (Bld) [Mass/Vol] 14.493499 g/dL Normal 11.8-15.4 g/dL [facility] Other Lymphocytes (Bld) [#/Vol] 3.480521376 10*3/uL Normal 1.00-4.8 10*3/uL [facility] Other Lymphocytes/100 WBC (Bld) 39.000 % . % [facility] Other MCH (RBC) [Entitic mass] 31.8000 pg Normal 24.7-34.3 pg [facility] Other MCV (RBC) [Entitic vol] 94.5000 fL Normal 80-100 fL [facility] Other Monocytes (Bld) [#/Vol] 0.784391949 10*3/uL Normal 0.0-0.8 10*3/uL [facility] Other Monocytes/100 WBC (Bld) 6.000 % . % [facility] Other Neutrophils (Bld) [#/Vol] 4.026289051 10*3/uL Normal 1.8-7.7 10*3/uL [facility] Other Neutrophils/100 WBC (Bld) 52.600 % . % [facility] Other Platelet mean volume (Bld) [Entitic vol] 7.9000 fL Normal 6.3-10.7 fL [facility] Other WBC (Bld) [#/Vol] 7.082608204 10*3/uL Normal 3.8 -11.6 10*3/uL [facility] Other Complete Blood Count Auto Diff 7.6 10*3/uL Normal 3.8-11.6 10*3/uL [facility] Other Complete Blood Count Auto Diff 33.6 g/dL Normal 32.0-35.0 g/dL [facility] Other Complete Blood Count Auto Diff 0.5 /100{WBC} Normal 0-0.5 /100{WBC} [facility] Other Eosinophils Auto (Bld) [#/Vo l]Ordered By: Kanchan Sanchez on 04-24-2022 Eosinophils (Bld) [#/Vol] 0.1 10*3/uL 0.0-0.45 [facility] Eosinophils/100 WBC Auto (Bl d)Ordered By: Imad Asaad on 04-24-2022 Eosinophils/100 WBC (Bld) 1.2 % . [facility] Erythrocyte distribution wid th Auto (RBC) [Ratio]Ordered By: Imad Asaad on 04-24-2022 Erythrocyte distribution width (RBC) [Ratio] 13.2 % 11.9-15.3 [facility] Erythrocytes [#/volume] in B lood by Automated countOrdered By: Imad Asaad on 04-24-2022 RBC (Bld) [#/Vol] 4.67 10*6/uL 3.60-5.[address] [facility] Globulin Calc (S) [Mass/Vol] Ordered By: Imad Asaad on 04-24-2022 Globulin (S) [Mass/Vol] 3.9 g/dL [facility] HCV genotyping ser/plas ampl ified probeOrdered By: ad Asaad on 04-24-2022 HCV genotype MOISES+probe Nom 1a . [facility] HIV 1/O/2 Antigen/Antibodyon 04-24-2022 HIV 1/O/2 Antigen/Antibody Non-Reactive . [facility] Other HIV 1 and HIV-2 antibody ass ay with HIV-1 p24 antigen detectionOrdered By: Imad Asaad on 04-24-2022 HIV 1+2 Ab+HIV1 p24 Ag IA Ql Non-Reactive Non Reactive [facility] Comment on above: HIV NegativeHIV-1/HI V-2 antibodies and HIV-1 p24 antigen were NOTdetected. There is no laboratory evidence of HIV infection.Performed at: [facility] [id number] Director: Adis Bhatia PhD, Phone: [phone] Hematocrit Auto (Bld) [Volum e fraction]Ordered By: Imad Asaad on 04-24-2022 Hematocrit (Bld) [Volume fraction] 44.2 % 34.0-46.4 [facility] Hemoglobin [Mass/volume] in BloodOrdered By: Imad Asaad on 04-24-2022 Hemoglobin (Bld) [Mass/Vol] 14.8 g/dL 11.8-15.4 [facility] Hep B Real-Time PCR, Quanton 04-24-2022 Hep B Real-Time PCR, Quant Not detected . [facility] Other Hep B Real-Time PCR, Quant [facility] Other Hep C Genotyping Non Reflexo n 04-24-2022 Hep C Genotyping Non Reflex 1a . [facility] Other Hep C RT-PCR, Qnt (Non-Graph )on 04-24-2022 Hep C RT-PCR, Qnt (Non-Graph) [id number] . [facility] Other Hep C RT-PCR, Qnt (Non-Graph) 5.912 . [facility] Other Hepatic Panelon 04-24-2022 Albumin [Mass/Vol] 4.802657 g/dL Normal 3.5-5.7 g/dL N [facility] Other Bilirubin [Mass/Vol] 0.8329786 mg/dL Normal 0.3- 1.0 mg/dL [facility] Other Bilirubin.indirect [Mass/Vol] 0.84028253 mg/dL Normal 0.03-0.18 mg/dL [facility] Other Protein [Mass/Vol] 8.446327 g/dL Normal 6.4-8.9 g/dL [facility] Other Hepatic Panel 0.2 mg/dL [facility] Other Hepatic Panel 3.9 g/dL [facility] Other Hepatitis A Antibody Totalon 04-24-2022 Hepatitis A Antibody Total Negative Negative [facility] Other Hepatitis A virus Ab [Presen ce] in Serum by ImmunoassayOrdered By: Kanchan Sanchez on 04-24-2022 HAV Ab IA Ql (S) Negative Negative [facility] Comment on above: Performed at: [facility] [address] [id number] Director: Adis Bhatia PhD, Phone: [phone] Hepatitis B Core Antibodyon 04-24-2022 Hepatitis B Core Antibody Positive Critically abnormal Negative [facility] Other Hepatitis B virus surface Ag [Presence] in Serum or Plasma by ImmunoassayOrdered By: Impepe Sanchez on 04-24-2022 HBV surface Ag IA Ql Negative Negative [facility] Hepatitis C virus RNA [log u nits/volume] (viral load) in Serum or Plasma by MOISES withOrdered By: Imad Asaad on 04-24-2022 HCV RNA MOISES+probe [Log units/Vol] [id number] [IU]/mL . [facility] HCV RNA MOISES+probe [Log units/Vol] 5.912 . [facility] Comment on above: Result Units: log10 IU/mL Leukocytes [#/volume] correc jose for nucleated erythrocytes in Blood by Automated counOrdered By: Imad Asaad on 04-24-2022 WBC corrected for nucl RBC Auto (Bld) [#/Vol] 7.6 10*3/uL 3.8-11.6 [facility] Lymphocytes Auto (Bld) [#/Vo l]Ordered By: Imad Asaad on 04-24-2022 Lymphocytes (Bld) [#/Vol] 3.0 10*3/uL 1.00-4.8 [facility] Lymphocytes/100 WBC Auto (Bl d)Ordered By: Imad Asaad on 04-24-2022 Lymphocytes/100 WBC (Bld) 39.0 % . [facility] MCH Auto (RBC) [Entitic mass ]Ordered By: Imad Asaad on 04-24-2022 MCH (RBC) [Entitic mass] 31.8 pg 24.7-34.3 [facility] MCHC Auto (RBC) [Mass/Vol]Or dered By: Imad Asaad on 04-24-2022 MCHC (RBC) [Mass/Vol] 33.6 g/dL 32.0-35.0 [facility] MCV Auto (RBC) [Entitic vol] Ordered By: Imad Asaad on 04-24-2022 MCV (RBC) [Entitic vol] 94.5 fL 80-100 [facility] Monocytes Auto (Bld) [#/Vol] Ordered By: Imad Asaad on 04-24-2022 Monocytes (Bld) [#/Vol] 0.5 10*3/uL 0.0-0.8 [facility] Monocytes/100 WBC Auto (Bld) Ordered By: Imad Asaad on 04-24-2022 Monocytes/100 WBC (Bld) 6.0 % . [facility] Neutrophils Auto (Bld) [#/Vo l]Ordered By: Imad Asaad on 04-24-2022 Neutrophils (Bld) [#/Vol] 4.0 10*3/uL 1.8-7.7 [facility] Neutrophils/100 WBC Auto (Bl d)Ordered By: Imad Asaad on 04-24-2022 Neutrophils/100 WBC (Bld) 52.6 % . [facility] No Panel InformationOrdered By: Imad Asaad on 04-24-2022 Hepatitis B Core Total Antibody Positive Negative [facility] Hepatitis B DNA Test Information See comment . [facility] Comment on above: The reportable range for this assay is 10 IU/mL to 1billion IU/mL.Performed at: [address] [id number] Director: Gunnar Shanks MD, Phone: [phone] Hepatitis C RNA (PCR) Interpret See comment . [facility] Comment on above: The quantitative ran ge of this assay is 15 IU/mL to 100million IU/mL. Hepatitis Delta Antibody See comment [facility] Comment on above: See report. Scanned copy available in EMR. Herpes Simplex Virus Note 2 See comment . [facility] Comment on above: This test was develo ped and its performance characteristicsdetermined by [employer]. It has not been cleared or approvedby the U.S. Food and Drug Administration.The FDA has determined that such clearance or approval isnot necessary. This test is used for clinical purposes. Itshould not be regarded as investigational or for research.Performed at: [facility] [employer] [id number] Director: Gunnar Shanks MD, Phone: [phone] Nucleated erythrocytes [Pres ence] in Blood by Automated countOrdered By: aKnchan Sanchez on 04-24-2022 Nucleated RBC Auto Ql (Bld) 0.5 /100{WBC} 0-0.5 [facility] Platelet mean volume Auto (B ld) [Entitic vol]Ordered By: ad Laura on 04-24-2022 Platelet mean volume (Bld) [Entitic vol] 7.9 fL 6.3-10.7 [facility] Platelets [#/volume] in Bloo d by Automated countOrdered By: pepe Sanchez on 04-24-2022 Platelets (Bld) [#/Vol] 390 10*3/uL 150-450 [facility] Protein [Mass/volume] in Ser um or PlasmaOrdered By: pepe Sanchez on 04-24-2022 Protein [Mass/Vol] 8.1 g/dL 6.4-8.9 [facility] Serum hepatitis B virus surf lady antibody detectionOrdered By: pepe Sanchez on 04-24-2022 HBV surface Ab Ql (S) Non-Reactive . [facility] Comment on above: Non Reactive: Incons istent with immunity, less than 10 mIU/mL Reactive: Consistent with immunity, greater than 9.9 mIU/mL Serum or plasma albumin/glob ulin mass ratioOrdered By: pepe [facility] Albumin/Globulin [Mass ratio] 1.1 {ratio} [facility] Serum or plasma hepatitis B virus DNA measurement (units/volume) (viral load) by probOrdered By: pepe Sanchez on 04-24-2022 HBV DNA MOISES+probe Qn Not detected . [facility] Serum or plasma hepatitis B virus DNA viral load by probe and target amplification meOrdered By: [facility] on 04-24-2022 HBV DNA MOISES+probe [#/Vol] N/A [facility] HBV DNA MOISES+probe [Log units/Vol] See comment . [facility] Comment on above: Result Units: log10 IU/mLUnable to calculate result since non-numeric resultobtained for component test. Serum or plasma non-glucuron idated bilirubin measurement (mass/volume)Ordered By: pepe Sanchez on 04-24-2022 Bilirubin.indirect [Mass/Vol] 0.2 mg/dL [facility] WBC Auto (Bld) [#/Vol]Ordere d By: Kanchan Sanchez on 04-24-2022 WBC (Bld) [#/Vol] 7.6 10*3/uL 3.8-11.6 [facility] Activated partial thrombopla stin time (aPTT) in platelet poor plasma by coagulation aOrdered By: Pavel Yoa on 04-11-2022 aPTT Coag (PPP) [Time] 26.1 s 25.1-36.5 [facility] Amphetamine Screen Ql (U)Ord ered By: Pavel Yao on 04-11-2022 Amphetamines Ql (U) Negative Negative [facility] Automated erythrocytes count in urine sediment (number/area)Ordered By: Pavel Yao on 04-11-2022 RBC Auto (Urine sed) [#/Area] 1-2 [HPF] 0-4 [facility] Automated leukocytes count i n urine sediment (number/area)Ordered By: Pavel Yao on 04-11-2022 WBC Auto (Urine sed) [#/Area] 1-2 [HPF] 0-4 [facility] Automated urine hyaline cast s count (number/volume)Ordered By: Pavel Yao on 04-11-2022 Hyaline casts Auto (U) [#/Vol] 1-2 [LPF] 0-1 [facility] Barbiturates [Presence] in U rineOrdered By: Pavel Yao on 04-11-2022 Barbiturates Ql (U) Negative Negative [facility] Basophils Auto (Bld) [#/Vol] Ordered By: Pavel Yao on 04-11-2022 Basophils (Bld) [#/Vol] 0.0 10*3/uL 0.0-0.2 [facility] Basophils/100 WBC Auto (Bld) Ordered By: Pavel Yao on 04-11-2022 Basophils/100 WBC (Bld) 0.3 % . [facility] Benzodiazepines [Presence] i n UrineOrdered By: Pavel Yao on 04-11-2022 Benzodiazepines Ql (U) Negative Negative [facility] Bilirubin Test strip Ql (U)O rdered By: Pavel Yao on 04-11-2022 Bilirubin Ql (U) 1+ Negative [facility] Calcium [Mass/volume] in Ser um or PlasmaOrdered By: Pavel Yao on 04-11-2022 Calcium [Mass/Vol] 8.7 mg/dL 8.2-10.2 [facility] Cannabinoids [Presence] in U rine by Screen methodOrdered By: Pavel Yao on 04-11-2022 Cannabinoids Screen Ql (U) Negative Negative [facility] Comment on above: These are unconfirme d results and should not be used for legal purposes. Drug Cut-Off Concentration: AMPH 1000 ng/mL JANELL 200 ng/mL JAMES 200 ng/mL COCM 300 ng/mL OP 300 ng/mL PCP 25 ng/mL THC 20 ng/mL Carbon dioxide, total [Moles /volume] in Serum or PlasmaOrdered By: Pavel Yao on 04-11-2022 CO2 [Moles/Vol] 20.4 mmol/L 22.0-30.0 [facility] Casts typing in urine sedime nt by light microscopyOrdered By: Pavel Yao on 04-11-2022 Casts LM Nom (Urine sed) None seen [LPF] None Seen [facility] Chloride [Moles/volume] in S marbella or PlasmaOrdered By: Pavel Yao on 04-11-2022 Chloride [Moles/Vol] 100 mmol/L 95-114 [facility] Color Auto (U)Ordered By: Venkatesh Yao on 04-11-2022 Color (U) Dark yellow Yellow [facility] Creatinine and Glomerular fi ltration rate.predicted panel (S/P/Bld)Ordered By: Pavel Yao on 04-11-2022 Creatinine [Mass/Vol] 0.44 mg/dL 0.44-1.03 [facility] Eosinophils Auto (Bld) [#/Vo l]Ordered By: Pavel Yao on 04-11-2022 Eosinophils (Bld) [#/Vol] 0.0 10*3/uL 0.0-0.45 [facility] Eosinophils/100 WBC Auto (Bl d)Ordered By: Pavel Yao on 04-11-2022 Eosinophils/100 WBC (Bld) 0.5 % . [facility] Erythrocyte distribution wid th Auto (RBC) [Ratio]Ordered By: Pavel Yao on 04-11-2022 Erythrocyte distribution width (RBC) [Ratio] 13.5 % 11.9-15.3 [facility] Estimated glomerular filtrat ion rate (GFR) non- AmericanOrdered By: Pavel Yao on 04-11-2022 GFR/1.73 sq M.predicted among non-blacks MDRD (S/P/Bld) [Vol rate/Area] > 60 mL/Min [facility] Glucose [Mass/volume] in Ser um or PlasmaOrdered By: Pavel Yao on 04-11-2022 Glucose [Mass/Vol] 60 mg/dL 70-100 [facility] Comment on above: ADA recommended refe rence rangeRandom Glucose Reference Range is dependent on time and content of last meal. Glucose of more than 200 mg/dL in a nonstressed, ambulatory subject supports the diagnosis of Diabetes Mellitus. HCG ( test) IA.rapi d Ql (U)Ordered By: Pavel Yao on 04-11-2022 HCG ( test) Ql (U) Negative [facility] Hematocrit Auto (Bld) [Volum e fraction]Ordered By: Pavel Yao on 04-11-2022 Hematocrit (Bld) [Volume fraction] 42.4 % 34.0-46.4 [facility] Hemoglobin [Mass/volume] in BloodOrdered By: Pavel Yao on 04-11-2022 Hemoglobin (Bld) [Mass/Vol] 14.4 g/dL 11.8-15.4 [facility] Ketones Auto test strip (U) [Mass/Vol]Ordered By: Pavel Yao on 04-11-2022 Ketones (U) [Mass/Vol] 3+ Negative [facility] Laboratory - Chemistry and C hemistry - challengeOrdered By: Pavel Yao on 04-11-2022 Magnesium [Mass/Vol] 1.7 mg/dL 1.6-2.6 [facility] Laboratory - CoagulationOrde red By: Pavel Yao on 04-11-2022 PT Coag (PPP) [Time] 12.1 s 9.0-12.9 [facility] Laboratory - Drug toxicology Ordered By: Pavel Yao on 04-11-2022 Opiates Ql (U) Negative Negative [facility] Leukocytes [#/volume] correc jose for nucleated erythrocytes in Blood by Automated counOrdered By: Pavel Yao on 04-11-2022 WBC corrected for nucl RBC Auto (Bld) [#/Vol] 8.0 10*3/uL 3.8-11.6 [facility] Lymphocytes Auto (Bld) [#/Vo l]Ordered By: Pavel Yao on 04-11-2022 Lymphocytes (Bld) [#/Vol] 1.6 10*3/uL 1.00-4.8 [facility] Lymphocytes/100 WBC Auto (Bl d)Ordered By: Pavel Yao on 04-11-2022 Lymphocytes/100 WBC (Bld) 19.9 % . [facility] MCH Auto (RBC) [Entitic mass ]Ordered By: Pavel Yao on 04-11-2022 MCH (RBC) [Entitic mass] 31.5 pg 24.7-34.3 [facility] MCHC Auto (RBC) [Mass/Vol]Or dered By: Pavel Yao on 04-11-2022 MCHC (RBC) [Mass/Vol] 33.9 g/dL 32.0-35.0 [facility] MCV Auto (RBC) [Entitic vol] Ordered By: Pavel Yao on 04-11-2022 MCV (RBC) [Entitic vol] 93.0 fL 80-100 [facility] Monocyte distribution width [Entitic volume] in Blood by AutomatedOrdered By: Pavel Yao on 04-11-2022 Monocyte distribution width Auto (Bld) [Entitic vol] 18.35 % 0.00-20.00 [facility] Monocytes Auto (Bld) [#/Vol] Ordered By: Pavel Yao on 04-11-2022 Monocytes (Bld) [#/Vol] 0.4 10*3/uL 0.0-0.8 [facility] Monocytes/100 WBC Auto (Bld) Ordered By: Pavel Yao on 04-11-2022 Monocytes/100 WBC (Bld) 5.2 % . [facility] Neutrophils Auto (Bld) [#/Vo l]Ordered By: Pavel Yao on 04-11-2022 Neutrophils (Bld) [#/Vol] 5.9 10*3/uL 1.8-7.7 [facility] Neutrophils/100 WBC Auto (Bl d)Ordered By: Pavel Yao on 04-11-2022 Neutrophils/100 WBC (Bld) 74.1 % . [facility] Nitrite Test strip Ql (U)Ord ered By: Pavel Yao on 04-11-2022 Nitrite Ql (U) Negative Negative [facility] No Panel InformationOrdered By: Pavel Yao on 04-11-2022 D-Dimer Quantitative (PE/DVT) 231 ng/mL 0-243 [facility] Comment on above: The reference range for [...] GFR () > 60 mL/Min [facility] Comment on above: GFR estimated refere nce range: According to KDOQI guidelines, <60 ml/min/1.73m2 is sufficient to diagnose a patient with chronic kidney disease. Pharmacy Creatinine Clearance (Chem 177.08 [facility] Nucleated erythrocytes [Pres ence] in Blood by Automated countOrdered By: Pavel Yao on 04-11-2022 Nucleated RBC Auto Ql (Bld) 0.1 /100{WBC} 0-0.5 [facility] Phencyclidine Screen Ql (U)O rdered By: Pavel Yao on 04-11-2022 Phencyclidine Ql (U) Negative Negative [facility] Platelet mean volume Auto (B ld) [Entitic vol]Ordered By: Pavel Yao on 04-11-2022 Platelet mean volume (Bld) [Entitic vol] 8.2 fL 6.3-10.7 [facility] Platelet poor plasma interna tional normalized ratio (INR) by coagulation assay (relatOrdered By: Pavel Yao on 04-11-2022 INR Coag (PPP) [Relative time] 1.0 {INR} [facility] Comment on above: INR Therapeutic Rang e [...] (Bld) [#/Vol] 167 10*3/uL 150-450 [facility] Potassium [Moles/volume] in Serum or PlasmaOrdered By: Pavel Yao on 04-11-2022 Potassium [Moles/Vol] 3.7 mmol/L 3.5-5.1 [facility] Protein Auto test strip (U) [Mass/Vol]Ordered By: Pavel Yao on 04-11-2022 Protein (U) [Mass/Vol] 30 mg/dL Negative [facility] RBC Auto (Bld) [#/Vol]Ordere d By: Pavel Yao on 04-11-2022 RBC (Bld) [#/Vol] 4.56 10*6/uL 3.60-5.[address] [facility] Serum or plasma anion gap de terminationOrdered By: Pavel Yao on 04-11-2022 Anion gap [Moles/Vol] 19.3 mmol/L 6.0-15.0 [facility] Sodium [Moles/volume] in Ser um or PlasmaOrdered By: Pavel Yao on 04-11-2022 Sodium [Moles/Vol] 136 mmol/L 136-146 [facility] Specific gravity Auto test s trip (U) [Rel density]Ordered By: Pavel Yao on 04-11-2022 Specific gravity (U) [Rel density] 1.025 1.001-1.030 [facility] Squamous epithelial cells de tection in urine sediment by light microscopyOrdered By: Pavel Yao on 04-11-2022 Epithelial cells.squamous LM Ql (Urine sed) 5-9 [HPF] 0-2 [facility] Troponin I.cardiac [Mass/vol ume] in Serum or Plasma by High sensitivity methodOrdered By: Pavel Yao on 04-11-2022 Troponin I.cardiac High sensitivity method [Mass/Vol] 6 pg/mL 0-15 [facility] Urea nitrogen [Mass/volume] in Serum or PlasmaOrdered By: Pavel Yao on 04-11-2022 Urea nitrogen [Mass/Vol] 6 mg/dL 9-23 [facility] Urine bacteria detection by automated methodOrdered By: Pavel Yao on 04-11-2022 Bacteria Auto Ql (U) None seen None Seen [facility] Urine clarity by refractomet ry automatedOrdered By: Pavel Yao on 04-11-2022 Clarity Refractometry automated (U) Cloudy Clear [facility] Urine cocaine detectionOrder ed By: Pavel Yao on 04-11-2022 Cocaine Ql (U) Negative Negative [facility] Urine glucose measurement by automated test strip (mass/volume)Ordered By: Pavel Yao on 04-11-2022 Glucose Auto test strip (U) [Mass/Vol] Normal mg/dL Normal [facility] Urine hemoglobin detection b y automated test stripOrdered By: Pavel Yao on 04-11-2022 Hemoglobin Auto test strip Ql (U) 3+ Negative [facility] Urine leukocyte esterase det ection by automated test stripOrdered By: Pavel Yao on 04-11-2022 Leukocyte esterase Auto test strip Ql (U) Negative Negative [facility] Urobilinogen Auto test strip (U) [Mass/Vol]Ordered By: Pavel Yao on 04-11-2022 Urobilinogen (U) [Mass/Vol] mg/dL Normal [facility] WBC Auto (Bld) [#/Vol]Ordere d By: Pavel Yao on 04-11-2022 WBC (Bld) [#/Vol] 8.0 10*3/uL 3.8-11.6 [facility] pH Auto test strip (U)Ordere d By: Pavel Yao on 04-11-2022 pH (U) 6.5 [pH] 5.0-9.0 [facility] Serum or plasma ethanol judi urement (mass/volume)Ordered By: Eric Dooley on 04-04-2022 Ethanol [Mass/Vol] 141 mg/dL [facility] Ethanol [Mass/Vol] 0.141 % [facility] Alkaline phosphatase [Enzyma tic activity/volume] in Serum or PlasmaOrdered By: Eric Dooley on 04-03-2022 ALP [Catalytic activity/Vol] 74 U/L 32-92 [facility] Amphetamine Screen Ql (U)Ord ered By: Eric Dooley on 04-03-2022 Amphetamines Ql (U) Positive Negative [facility] Aspartate aminotransferase [ Enzymatic activity/volume] in Serum or PlasmaOrdered By: Eric Dooley on 04-03-2022 AST [Catalytic activity/Vol] 79 U/L 10-42 [facility] Bacterial blood cultureOrder ed By: Ari Aguero on 04-03-2022 Bacteria identified Cx Nom (Bld) NO GROWTH 5 DAYS [facility] Bacteria identified Cx Nom (Bld) NO GROWTH 5 DAYS [facility] Barbiturates [Presence] in U rineOrdered By: Eric Dooley on 04-03-2022 Barbiturates Ql (U) Negative Negative [facility] Basophils Auto (Bld) [#/Vol] Ordered By: Ari Aguero on 04-03-2022 Basophils (Bld) [#/Vol] 0.1 10*3/uL 0.0-0.2 [facility] Basophils/100 WBC Auto (Bld) Ordered By: Eric Dooley on 04-03-2022 Basophils/100 WBC (Bld) 1.6 % . [facility] Basophils/100 WBC Auto (Bld) Ordered By: Ari Aguero on 04-03-2022 Basophils/100 WBC (Bld) 0.8 % . [facility] Benzodiazepines [Presence] i n UrineOrdered By: Eric Dooley on 04-03-2022 Benzodiazepines Ql (U) Negative Negative [facility] Bilirubin Test strip Ql (U)O rdered By: Eric Dooley on 04-03-2022 Bilirubin Ql (U) Negative Negative [facility] Body fluid albumin measureme nt (mass/volume)Ordered By: Eric Dooley on 04-03-2022 Albumin (Body fld) [Mass/Vol] 3.5 g/dL 3.2-5.5 [facility] C reactive protein [Mass/vol ume] in Serum or PlasmaOrdered By: Ari Aguero on 04-03-2022 CRP [Mass/Vol] 0.7 mg/dL 0.0-1.0 [facility] Calcium [Mass/volume] in Ser um or PlasmaOrdered By: Eric Dooley on 04-03-2022 Calcium [Mass/Vol] 8.8 mg/dL 8.2-10.2 [facility] Cannabinoids [Presence] in U rine by Screen methodOrdered By: Eric Dooley on 04-03-2022 Cannabinoids Screen Ql (U) Negative Negative [facility] Comment on above: These are unconfirme d results and should not be used for legal purposes. Drug Cut-Off Concentration: AMPH 1000 ng/mL JANELL 200 ng/mL JAMES 200 ng/mL COCM 300 ng/mL OP 300 ng/mL PCP 25 ng/mL THC 20 ng/mL Carbon dioxide, total [Moles /volume] in Serum or PlasmaOrdered By: Eric Dooley on 04-03-2022 CO2 [Moles/Vol] 24.9 mmol/L 22.0-30.0 [facility] Color Auto (U)Ordered By: Anita Dooley on 04-03-2022 Color (U) Yellow Yellow [facility] Creatinine and Glomerular fi ltration rate.predicted panel (S/P/Bld)Ordered By: Eric Dooley on 04-03-2022 Creatinine [Mass/Vol] 0.52 mg/dL 0.44-1.03 [facility] Creatinine and Glomerular fi ltration rate.predicted panel (S/P/Bld)Ordered By: Ari Aguero on 04-03-2022 Creatinine [Mass/Vol] 0.55 mg/dL 0.44-1.03 [facility] Eosinophils Auto (Bld) [#/Vo l]Ordered By: Eric Dooley on 04-03-2022 Eosinophils (Bld) [#/Vol] 0.2 10*3/uL 0.0-0.45 [facility] Eosinophils Auto (Bld) [#/Vo l]Ordered By: Ari Aguero on 04-03-2022 Eosinophils (Bld) [#/Vol] 0.1 10*3/uL 0.0-0.45 [facility] Eosinophils/100 WBC Auto (Bl d)Ordered By: Eric Dooley on 04-03-2022 Eosinophils/100 WBC (Bld) 1.8 % . [facility] Eosinophils/100 WBC Auto (Bl d)Ordered By: Ari Aguero on 04-03-2022 Eosinophils/100 WBC (Bld) 1.5 % . [facility] Erythrocyte distribution wid th Auto (RBC) [Ratio]Ordered By: Ari Aguero on 04-03-2022 Erythrocyte distribution width (RBC) [Ratio] 13.3 % 11.9-15.3 [facility] Erythrocyte sedimentation ra te by Photometric methodOrdered By: Ari Aguero on 04-03-2022 ESR Photometric method (Bld) [Velocity] 9 mm/hr 0-19 [facility] Estimated glomerular filtrat ion rate (GFR) non- AmericanOrdered By: Ari Aguero on 04-03-2022 GFR/1.73 sq M.predicted among non-blacks MDRD (S/P/Bld) [Vol rate/Area] > 60 mL/Min [facility] Globulin Calc (S) [Mass/Vol] Ordered By: Eric Dooley on 04-03-2022 Globulin (S) [Mass/Vol] 3.3 g/dL [facility] Hematocrit Auto (Bld) [Volum e fraction]Ordered By: Eric Dooley on 04-03-2022 Hematocrit (Bld) [Volume fraction] 44.1 % 34.0-46.4 [facility] Hematocrit Auto (Bld) [Volum e fraction]Ordered By: Ari Aguero on 04-03-2022 Hematocrit (Bld) [Volume fraction] 43.6 % 34.0-46.4 [facility] Hemoglobin [Mass/volume] in BloodOrdered By: Eric Dooley on 04-03-2022 Hemoglobin (Bld) [Mass/Vol] 14.8 g/dL 11.8-15.4 [facility] Hemoglobin [Mass/volume] in BloodOrdered By: Ari Aguero on 04-03-2022 Hemoglobin (Bld) [Mass/Vol] 14.5 g/dL 11.8-15.4 [facility] Ketones Auto test strip (U) [Mass/Vol]Ordered By: Eric Dooley on 04-03-2022 Ketones (U) [Mass/Vol] Negative Negative [facility] Laboratory - Drug toxicology Ordered By: Eric Dooley on 04-03-2022 Opiates Ql (U) Negative Negative [facility] Leukocytes [#/volume] correc jose for nucleated erythrocytes in Blood by Automated counOrdered By: Eric Dooley on 04-03-2022 WBC corrected for nucl RBC Auto (Bld) [#/Vol] 8.3 10*3/uL 3.8-11.6 [facility] Leukocytes [#/volume] correc jose for nucleated erythrocytes in Blood by Automated counOrdered By: Ari Aguero on 04-03-2022 WBC corrected for nucl RBC Auto (Bld) [#/Vol] 7.0 10*3/uL 3.8-11.6 [facility] Lymphocytes Auto (Bld) [#/Vo l]Ordered By: Eric Dooley on 04-03-2022 Lymphocytes (Bld) [#/Vol] 3.9 10*3/uL 1.00-4.8 [facility] Lymphocytes Auto (Bld) [#/Vo l]Ordered By: Ari Aguero on 04-03-2022 Lymphocytes (Bld) [#/Vol] 1.7 10*3/uL 1.00-4.8 [facility] Lymphocytes/100 WBC Auto (Bl d)Ordered By: Eric Dooley on 04-03-2022 Lymphocytes/100 WBC (Bld) 46.7 % . [facility] Lymphocytes/100 WBC Auto (Bl d)Ordered By: Ari Aguero on 04-03-2022 Lymphocytes/100 WBC (Bld) 24.5 % . [facility] MCH Auto (RBC) [Entitic mass ]Ordered By: Eric Dooley on 04-03-2022 MCH (RBC) [Entitic mass] 31.3 pg 24.7-34.3 [facility] MCH Auto (RBC) [Entitic mass ]Ordered By: Ari Aguero on 04-03-2022 MCH (RBC) [Entitic mass] 31.0 pg 24.7-34.3 [facility] MCHC Auto (RBC) [Mass/Vol]Or dered By: Eric Dooley on 04-03-2022 MCHC (RBC) [Mass/Vol] 33.5 g/dL 32.0-35.0 [facility] MCHC Auto (RBC) [Mass/Vol]Or dered By: Ari Aguero on 04-03-2022 MCHC (RBC) [Mass/Vol] 33.3 g/dL 32.0-35.0 [facility] MCV Auto (RBC) [Entitic vol] Ordered By: Eric Dooley on 04-03-2022 MCV (RBC) [Entitic vol] 93.4 fL 80-100 [facility] MCV Auto (RBC) [Entitic vol] Ordered By: Ari Aguero on 04-03-2022 MCV (RBC) [Entitic vol] 93.3 fL 80-100 [facility] Monocyte distribution width [Entitic volume] in Blood by AutomatedOrdered By: Eric Dooley on 04-03-2022 Monocyte distribution width Auto (Bld) [Entitic vol] 20.63 % 0.00-20.00 [facility] Comment on above: For adults in ED, MD W > 20.0 may be associated with a higher risk of sepsis during the first 12 hrs of hospital admission Monocyte distribution width [Entitic volume] in Blood by AutomatedOrdered By: Ari Aguero on 04-03-2022 Monocyte distribution width Auto (Bld) [Entitic vol] 16.81 % 0.00-20.00 [facility] Monocytes Auto (Bld) [#/Vol] Ordered By: Ari Aguero on 04-03-2022 Monocytes (Bld) [#/Vol] 0.5 10*3/uL 0.0-0.8 [facility] [facility] Monocytes/100 WBC Auto (Bld) Ordered By: Eric Dooley on 04-03-2022 Monocytes/100 WBC (Bld) 6.5 % . [facility] Monocytes/100 WBC Auto (Bld) Ordered By: Ari Aguero on 04-03-2022 Monocytes/100 WBC (Bld) 6.6 % . [facility] Neutrophils Auto (Bld) [#/Vo l]Ordered By: Eric Dooley on 04-03-2022 Neutrophils (Bld) [#/Vol] 3.6 10*3/uL 1.8-7.7 [facility] Neutrophils Auto (Bld) [#/Vo l]Ordered By: Ari Aguero on 04-03-2022 Neutrophils (Bld) [#/Vol] 4.6 10*3/uL 1.8-7.7 [facility] Neutrophils/100 WBC Auto (Bl d)Ordered By: Eric Dooley on 04-03-2022 Neutrophils/100 WBC (Bld) 43.4 % . [facility] Neutrophils/100 WBC Auto (Bl d)Ordered By: Ari Aguero on 04-03-2022 Neutrophils/100 WBC (Bld) 66.6 % . [facility] Nitrite Test strip Ql (U)Ord ered By: Eric Dooley on 04-03-2022 Nitrite Ql (U) Negative Negative [facility] No Panel InformationOrdered By: Eric Dooley on 04-03-2022 Pharmacy Creatinine Clearance (Chem 173.81 [facility] No Panel InformationOrdered By: Ari Aguero on 04-03-2022 Estimated GFR () > 60 mL/Min [facility] Comment on above: GFR estimated refere nce range: According to KDOQI guidelines, <60 ml/min/1.73m2 is sufficient to diagnose a patient with chronic kidney disease. Pharmacy Creatinine Clearance (Chem 141.66 [facility] Nucleated erythrocytes [Pres ence] in Blood by Automated countOrdered By: Ari Aguero on 04-03-2022 Nucleated RBC Auto Ql (Bld) 0.1 /100{WBC} 0-0.5 [facility] Phencyclidine Screen Ql (U)O rdered By: Eric Dooley on 04-03-2022 Phencyclidine Ql (U) Negative Negative [facility] Platelet mean volume Auto (B ld) [Entitic vol]Ordered By: Eric Dooley on 04-03-2022 Platelet mean volume (Bld) [Entitic vol] 8.0 fL 6.3-10.7 [facility] Platelet mean volume Auto (B ld) [Entitic vol]Ordered By: Ari Aguero on 04-03-2022 Platelet mean volume (Bld) [Entitic vol] 8.1 fL 6.3-10.7 [facility] Platelets Auto (Bld) [#/Vol] Ordered By: Eric Dooley on 04-03-2022 Platelets (Bld) [#/Vol] 191 10*3/uL 150-450 [facility] Platelets Auto (Bld) [#/Vol] Ordered By: Ari Aguero on 04-03-2022 Platelets (Bld) [#/Vol] 179 10*3/uL 150-450 [facility] Protein Auto test strip (U) [Mass/Vol]Ordered By: Eric Dooley on 04-03-2022 Protein (U) [Mass/Vol] Negative Negative [facility] Protein [Mass/volume] in Ser um or PlasmaOrdered By: Eric Dooley on 04-03-2022 Protein [Mass/Vol] 6.8 g/dL 6.1-7.9 [facility] RBC Auto (Bld) [#/Vol]Ordere d By: Eric Dooley on 04-03-2022 RBC (Bld) [#/Vol] 4.72 10*6/uL 3.60-5.[address] [facility] RBC Auto (Bld) [#/Vol]Ordere d By: Ari Aguero on 04-03-2022 RBC (Bld) [#/Vol] 4.68 10*6/uL 3.60-5.[address] [facility] Serum or plasma alanine urbina otransferase measurement without P-5'-P (enzymatic activiOrdered By: Eric Dooley on 04-03-2022 ALT No additional P-5'-P [Catalytic activity/Vol] 74 U/L 10-60 [facility] Serum or plasma albumin/glob ulin mass ratioOrdered By: Eric Dooley on 04-03-2022 Albumin/Globulin [Mass ratio] 1.1 {ratio} [facility] Serum or plasma anion gap de terminationOrdered By: Eric Dooley on 04-03-2022 Anion gap [Moles/Vol] 13.6 mmol/L 6.0-15.0 [facility] Serum or plasma anion gap de terminationOrdered By: Ari Aguero on 04-03-2022 Anion gap [Moles/Vol] 10.4 mmol/L 6.0-15.0 [facility] Serum or plasma calcium judi urement (mass/volume)Ordered By: Ari Aguero on 04-03-2022 Calcium [Mass/Vol] 8.9 mg/dL 8.2-10.2 [facility] Serum or plasma chloride nataliia surement (moles/volume)Ordered By: Eric Dooley on 04-03-2022 Chloride [Moles/Vol] 104 mmol/L 95-114 [facility] Serum or plasma chloride nataliia surement (moles/volume)Ordered By: Ari Aguero on 04-03-2022 Chloride [Moles/Vol] 103 mmol/L 95-114 [facility] Serum or plasma glucose judi urement (mass/volume)Ordered By: Eric Dooley on 04-03-2022 Glucose [Mass/Vol] 88 mg/dL 70-100 [facility] Comment on above: ADA recommended refe rence rangeRandom Glucose Reference Range is dependent on time and content of last meal. Glucose of more than 200 mg/dL in a nonstressed, ambulatory subject supports the diagnosis of Diabetes Mellitus. Serum or plasma glucose judi urement (mass/volume)Ordered By: Ari Aguero on 04-03-2022 Glucose [Mass/Vol] 87 mg/dL 70-100 [facility] Comment on above: ADA recommended refe rence rangeRandom Glucose Reference Range is dependent on time and content of last meal. Glucose of more than 200 mg/dL in a nonstressed, ambulatory subject supports the diagnosis of Diabetes Mellitus. Serum or plasma potassium me asurement (moles/volume)Ordered By: Eric Dooley on 04-03-2022 Potassium [Moles/Vol] 3.5 mmol/L 3.5-5.1 [facility] Serum or plasma potassium me asurement (moles/volume)Ordered By: Ari Aguero on 04-03-2022 Potassium [Moles/Vol] 4.1 mmol/L 3.5-5.1 [facility] Serum or plasma sodium measu rement (moles/volume)Ordered By: Eric Dooley on 04-03-2022 Sodium [Moles/Vol] 139 mmol/L 136-146 [facility] Comment on above: Delta: 133 on Serum or plasma sodium measu rement (moles/volume)Ordered By: Ari Aguero on 04-03-2022 Sodium [Moles/Vol] 133 mmol/L 136-146 [facility] Serum or plasma total biliru bin measurement (mass/volume)Ordered By: Eric Dooley on 04-03-2022 Bilirubin [Mass/Vol] 0.3 mg/dL 0.3-1.2 [facility] Serum or plasma total carbon dioxide measurement (moles/volume)Ordered By: Ari Aguero on 04-03-2022 CO2 [Moles/Vol] 23.7 mmol/L 22.0-30.0 [facility] Serum or plasma urea nitroge n measurement (mass/volume)Ordered By: Ari Aguero on 04-03-2022 Urea nitrogen [Mass/Vol] 7 mg/dL 11-03 [facility] Specific gravity Auto test s trip (U) [Rel density]Ordered By: Eric Dooley on 04-03-2022 Specific gravity (U) [Rel density] 1.002 1.001-1.030 [facility] Urea nitrogen [Mass/volume] in Serum or PlasmaOrdered By: Eric Dooley on 04-03-2022 Urea nitrogen [Mass/Vol] 5 mg/dL 11-03 [facility] Urine clarity by refractomet ry automatedOrdered By: Eric Dooley on 04-03-2022 Clarity Refractometry automated (U) Clear Clear [facility] Urine cocaine detectionOrder ed By: Eric Dooley on 04-03-2022 Cocaine Ql (U) Negative Negative [facility] Urine glucose measurement by automated test strip (mass/volume)Ordered By: Eric Dooley on 04-03-2022 Glucose Auto test strip (U) [Mass/Vol] Normal mg/dL Normal [facility] Urine hemoglobin detection b y automated test stripOrdered By: Eric Dooley on 04-03-2022 Hemoglobin Auto test strip Ql (U) Negative Negative [facility] Urine leukocyte esterase det ection by automated test stripOrdered By: Eric Dooley on 04-03-2022 Leukocyte esterase Auto test strip Ql (U) Negative Negative [facility] Urobilinogen Auto test strip (U) [Mass/Vol]Ordered By: Eric Dooley on 04-03-2022 Urobilinogen (U) [Mass/Vol] Normal mg/dL Normal [facility] WBC Auto (Bld) [#/Vol]Ordere d By: Eric Dooley on 04-03-2022 WBC (Bld) [#/Vol] 8.3 10*3/uL 3.8-11.6 [facility] WBC Auto (Bld) [#/Vol]Ordere d By: Ari Aguero on 04-03-2022 WBC (Bld) [#/Vol] 7.0 10*3/uL 3.8-11.6 [facility] pH Auto test strip (U)Ordere d By: Eric Dooley on 04-03-2022 pH (U) 6.0 [pH] 5.0-9.0 [facility] Acetaminophenon 03-12-2022 Acetaminophen [Mass/Vol] ug/mL Low 10-30 [facility] Comment on above: Performed By: #### C DP, CP, MG, HCG, ACET, ALCB, SALI #### [facility] [address] [place] [address] Drums Teacher: Foreign Page DO Acetaminophen Levelon 2022 Acetaminophen Level <5 Low 10 - 30 ug/mL [email or web address] CBC with Auto Differentialon 03-12-2022 Absolute Eos # 0.10 [place] [employer] Absolute Lymph # 3.70 [facility] [employer] Absolute [place] # 0.30 [facility] [employer] Basophils (Bld) [#/Vol] 0.10 10*3/uL [facility] Basophils/100 WBC (Bld) 1 % 0 - 2 % [facility] Eosinophils/100 WBC (Bld) 1 % 0 - 4 % [facility] [employer] Hematocrit (Bld) [Volume fraction] 40.5 % 36 - 46 % [facility] [employer] Hemoglobin (Bld) [Mass/Vol] 13.3 g/dL 12.0 - 16.0 g/dL [facility] Lymphocytes/100 WBC (Bld) 44 % 24 - 44 % [facility] MCH (RBC) [Entitic mass] 31.1 pg 26 - 34 pg [facility] MCHC (RBC) [Mass/Vol] 32.8 g/dL 31 - 37 g/dL B ON [facility] MCV (RBC) [Entitic vol] 94.8 fL 80 - 100 fL [facility] Monocytes/100 WBC (Bld) 4 % 1 - 7 % [facility] Platelet distribution width (Bld) [Ratio] 13.3 % 11.5 - 14.9 % [facility] Platelet mean volume (Bld) [Entitic vol] 7.3 fL 6.0 - 12.0 fL [facility] Platelets (Bld) [#/Vol] 301 10*3/uL [facility] RBC (Bld) [#/Vol] 4.27 10*6/uL 4.0 - 5.2 m/uL [facility] Segmented neutrophils/100 WBC (Bld) 50 % 36 - 66 % [facility] Segs Absolute 4.20 [facility] WBC (Bld) [#/Vol] 8.3 10*3/uL [facility] CBC with Diffon 03-12-2022 Abs. Basophil 0.10 k/uL Normal 0.0-0.2 [facility] Comment on above: Performed By: #### C DP, CP, MG, HCG, ACET, ALCB, SALI #### [facility] [address] [place] [address] Drums Teacher: Foreign Page DO Abs.Neutrophil (Seg) 4.20 k/uL Normal 1.3-9.1 [facility] Comment on above: Performed By: #### C DP, CP, MG, HCG, ACET, ALCB, SALI #### [facility] [address] [place] [address] Drums Teacher: Foreign Page DO Basophils/100 WBC (Bld) 1 % Normal 0-2 [facility] Comment on above: Performed By: #### C DP, CP, MG, HCG, ACET, ALCB, SALI #### [facility] [address] [place] [address] Drums Teacher: Foreign Page DO Eosinophils (Bld) [#/Vol] 0.10 10*3/uL Normal 0.0-0.4 [facility] Comment on above: Performed By: #### C DP, CP, MG, HCG, ACET, ALCB, SALI #### [facility] [address] [place] [address] Drums Teacher: Foreign Page DO Eosinophils/100 WBC (Bld) 1 % Normal 0-4 [facility] Comment on above: Performed By: #### C DP, CP, MG, HCG, ACET, ALCB, SALI #### [facility] [address] [place] [address] Drums Teacher: Foreign Page DO Erythrocyte distribution width (RBC) [Ratio] 13.3 % Normal 11.5-14.9 [facility] Comment on above: Performed By: #### C DP, CP, MG, HCG, ACET, ALCB, SALI #### [facility] [place] [address] Drums Teacher: Foreign Page DO Hematocrit (Bld) [Volume fraction] 40.5 % Normal 36-46 [facility] Comment on above: Performed By: #### C DP, CP, MG, HCG, ACET, ALCB, SALI #### [facility] [place] [address] Drums Teacher: Foreign Page DO Hemoglobin (Bld) [Mass/Vol] 13.3 g/dL Normal 12.0-16.0 [facility] Comment on above: Performed By: #### C DP, CP, MG, HCG, ACET, ALCB, SALI #### [facility] [address] [place] [address] Drums Teacher: Foreign Page DO Lymphocytes (Bld) [#/Vol] 3.70 10*3/uL Normal 1.0-4.8 [facility] Comment on above: Performed By: #### C DP, CP, MG, HCG, ACET, ALCB, SALI #### [facility] [address] [place] [address] Drums Teacher: Foreign Page DO Lymphocytes/100 WBC (Bld) 44 % Normal 24-44 [facility] Comment on above: Performed By: #### C DP, CP, MG, HCG, ACET, ALCB, SALI #### [facility] [place] [address] Drums Teacher: Foreign Page DO MCH (RBC) [Entitic mass] 31.1 pg Normal 26-34 [facility] Comment on above: Performed By: #### C DP, CP, MG, HCG, ACET, ALCB, SALI #### [facility] [place] [address] Drums Teacher: Foreign Page DO MCHC (RBC) [Mass/Vol] 32.8 g/dL Normal 31-37 [facility] Comment on above: Performed By: #### C DP, CP, MG, HCG, ACET, ALCB, SALI #### [facility] [place] [address] Drums Teacher: Foreign Page DO MCV (RBC) [Entitic vol] 94.8 fL Normal 80-100 [facility] Comment on above: Performed By: #### C DP, CP, MG, HCG, ACET, ALCB, SALI #### [facility] [place] [address] Drums Teacher: Foreign Page DO Monocytes (Bld) [#/Vol] 0.30 10*3/uL Normal 0.1-1.3 [facility] Comment on above: Performed By: #### C DP, CP, MG, HCG, ACET, ALCB, SALI #### [facility] [address] [place] [address] Drums Teacher: Foreign Page DO Monocytes/100 WBC (Bld) 4 % Normal 1-7 [facility] Comment on above: Performed By: #### C DP, CP, MG, HCG, ACET, ALCB, SALI #### [facility] [address] [place] [address] Drums Teacher: Foreign Page DO Neutrophil (Seg) 50 % Normal 36-66 [facility] Comment on above: Performed By: #### C DP, CP, MG, HCG, ACET, ALCB, SALI #### [facility] [address] [place] [address] Drums Teacher: Foreign Page DO Platelet mean volume (Bld) [Entitic vol] 7.3 fL Normal 6.0-12.0 [facility] Comment on above: Performed By: #### C DP, CP, MG, HCG, ACET, ALCB, SALI #### [facility] [address] [place] [address] Drums Teacher: Foreign Page DO Platelets (Bld) [#/Vol] 301 10*3/uL Normal 150-450 [facility] Comment on above: Performed By: #### C DP, CP, MG, HCG, ACET, ALCB, SALI #### [facility] [address] [place] [address] Drums Teacher: Foreign Page DO RBC (Bld) [#/Vol] 4.27 10*6/uL Normal 4.0-5.2 [facility] Comment on above: Performed By: #### C DP, CP, MG, HCG, ACET, ALCB, SALI #### [facility] [address] [place], [place] [id number] Drums Teacher: Foreign Page DO WBC (Bld) [#/Vol] 8.3 10*3/uL Normal 3.5-11.0 [facility] Comment on above: Performed By: #### C DP, CP, MG, HCG, ACET, ALCB, SALI #### [facility] [address] [place] [address] Drums Teacher: Foreign Page DO CMPon 03-12-2022 Albumin [Mass/Vol] 3.6 g/dL 3.5 - 5.2 g/dL [facility] ALP (Bld) [Catalytic activity/Vol] 123 U/L High 35 - 104 U/L [facility] ALT [Catalytic activity/Vol] 78 U/L High 5 - 33 U/L [facility] Anion gap [Moles/Vol] 12 mmol/L 9 - 17 mmol/L [facility] AST [Catalytic activity/Vol] 143 U/L High NINF - 32 U/L [facility] Bilirubin [Mass/Vol] 0.2 mg/dL Low 0.3 - 1 .2 mg/dL [facility] Calcium [Mass/Vol] 8.5 mg/dL Low 8.6 - 10. 4 mg/dL [facility] Chloride [Moles/Vol] 105 mmol/L 98 - 10 7 mmol/L [facility] CO2 [Moles/Vol] 23 mmol/L 20 - 31 mmol/L [facility] Creatinine [Mass/Vol] 0.53 mg/dL 0.50 - 0.90 mg/dL [facility] GFR/1.73 sq M.predicted MDRD (S/P/Bld) [Vol rate/Area] - PINF [facility] Comment on above: These results are not [...] [Mass/Vol] 72 mg/dL 70 - 99 mg/dL [facility] Interpretation and review of laboratory results Abnormal [facility] Potassium [Moles/Vol] 3.8 mmol/L 3.7 - 5.3 mmol/L [facility] Protein [Mass/Vol] 7.8 g/dL 6.4 - 8.3 g/dL [facility] Sodium [Moles/Vol] 140 mmol/L 135 - 144 mmol/L [facility] Urea nitrogen (BldV) [Mass/Vol] 5 mg/dL Low 6 - 20 mg/dL [facility] CT HEAD WO CONTRASTon 2022 CT HEAD [...] SYSTEM PROVIDED HISTORY: ams TECHNOLOGIST PROVIDED HISTORY: [facility] Decision Support Exception - unselect if not [...] Varun Hager MD 03/12/22 Final result Normal [facility] CT Head W/O Contraston 03-12 No acute intracrania l abnormality. [facility] EXAMINATION: CT OF THE HEAD WITHOUT CONTRAST 03/12/2022 3:18 pm TECHNIQUE: CT of the head was performed without the administration of intravenous contrast. Automated exposure control, iterative reconstruction, and/or weight based adjustment of the mA/kV was utilized to reduce the radiation dose to as low as reasonably achievable. COMPARISON: None. HISTORY: ORDERING SYSTEM PROVIDED HISTORY: ams TECHNOLOGIST PROVIDED HISTORY: [facility] Decision Support Exception - unselect if not [...] of the visualized skull or soft tissues. [facility] Varun Hager MD - 03/12/2022 EXAMINATION: [...] SYSTEM PROVIDED HISTORY: ams TECHNOLOGIST PROVIDED HISTORY: [facility] Decision Support Exception - unselect if not [...] soft tissues. IMPRESSION: No acute intracranial abnormality. [facility] [employer] Work Phone: Radiology Study observation (narrative) [facility] [employer] Phone: CT Head W/O ContrastOrdered By: Varun Hager on 03-12-2022 [facility] [employer] Work Phone: Comp Metabolic Profon 2022 Albumin [Mass/Vol] 3.6 g/dL Normal 3.5-5.2 [facility] Comment on above: Performed By: #### C DP, CP, MG, HCG, ACET, ALCB, SALI #### [facility] [address] [place] [address] Drums Teacher: Foreign Page DO Alkaline Phos 123 U/L High 35-104 [facility] Comment on above: Performed By: #### C DP, CP, MG, HCG, ACET, ALCB, SALI #### [facility] [address] [place] [address] Drums Teacher: Foreign Page DO ALT [Catalytic activity/Vol] 78 U/L High 5-33 [facility] Comment on above: Performed By: #### C DP, CP, MG, HCG, ACET, ALCB, SALI #### [facility] [place] [address] Drums Teacher: Foreign Page DO Anion gap [Moles/Vol] 12 mmol/L Normal 9-17 [facility] Comment on above: Performed By: #### C DP, CP, MG, HCG, ACET, ALCB, SALI #### [facility] [place] [address] Drums Teacher: Foreign Page DO AST [Catalytic activity/Vol] 143 U/L High <32 [facility] Comment on above: Performed By: #### C DP, CP, MG, HCG, ACET, ALCB, SALI #### [facility] [address] [place] [address] Drums Teacher: Foreign Page DO Bilirubin [Mass/Vol] 0.2 mg/dL Low 0.3-1.2 [facility] Comment on above: Performed By: #### C DP, CP, MG, HCG, ACET, ALCB, SALI #### [facility] [address] [place] [address] Drums Teacher: Foreign Page DO Calcium [Mass/Vol] 8.5 mg/dL Low 8.6-10.4 [facility] Comment on above: Performed By: #### C DP, CP, MG, HCG, ACET, ALCB, SALI #### [facility] [address] [place] [address] Drums Teacher: Foreign Page DO Chloride [Moles/Vol] 105 mmol/L Normal 98-107 [facility] Comment on above: Performed By: #### C DP, CP, MG, HCG, ACET, ALCB, SALI #### [facility] [address] [place] [address] Drums Teacher: Foreign Page DO CO2 [Moles/Vol] 23 mmol/L Normal 20-31 [facility] Comment on above: Performed By: #### C DP, CP, MG, HCG, ACET, ALCB, SALI #### [facility] [address] [place] [address] Drums Teacher: Foreign Page DO Creatinine [Mass/Vol] 0.53 mg/dL Normal 0.50-0.90 [facility] Comment on above: Performed By: #### C DP, CP, MG, HCG, ACET, ALCB, SALI #### [facility] [address] [place] [address] Drums Teacher: Foreign Page DO GFR/1.73 sq M.predicted among non-blacks MDRD (S/P/Bld) [Vol rate/Area] mL/min/{1.73_m2} Normal >60 [facility] Comment on above: Result Comment: These [...] CP, MG, HCG, ACET, ALCB, SALI #### [facility] [address] [facility] [place] [address] Drums Teacher: Foreign Page DO Glucose [Mass/Vol] 72 mg/dL Normal 70-99 [facility] Comment on above: Performed By: #### C DP, CP, MG, HCG, ACET, ALCB, SALI #### [facility] [address] [facility] [place] [address] Drums Teacher: Foreign Page DO Potassium [Moles/Vol] 3.8 mmol/L Normal 3.7-5.3 [facility] Comment on above: Performed By: #### C DP, CP, MG, HCG, ACET, ALCB, SALI #### [facility] [address] [facility] [place] [address] Drums Teacher: Foreign Page DO Protein [Mass/Vol] 7.8 g/dL Normal 6.4-8.3 [facility] Comment on above: Performed By: #### C DP, CP, MG, HCG, ACET, ALCB, SALI #### [facility] [address] [facility] [place] [address] Drums Teacher: Foreign Page DO Sodium [Moles/Vol] 140 mmol/L Normal 135-144 [facility] Comment on above: Performed By: #### C DP, CP, MG, HCG, ACET, ALCB, SALI #### [facility] [address] [place] [address] Drums Teacher: Foreign Page DO Urea nitrogen [Mass/Vol] 5 mg/dL Low 6-20 [facility] Comment on above: Performed By: #### C DP, CP, MG, HCG, ACET, ALCB, SALI #### [facility] [address] [place] [address] Drums Teacher: Foreign Page DO Drug Scr, Abuse, Uron 2022 Amphetamine(s),Ur Negative Normal NEG [facility] Comment on above: Result Comment: (Positive cutoff 1000 ng/mL) Performed By: #### U AX, KAUSHAL #### [facility] [address] [place] [address] Drums Teacher: Foreign Page DO Barbiturate(s),Ur Negative Normal NEG [facility] Comment on above: Result Comment: (Positive cutoff 200 ng/mL) Performed By: #### U AX, KAUSHAL #### [facility] [address] [place] [address] Drums Teacher: Foreign Page DO Benzodiazepine(s) Negative Normal NEG [facility] Comment on above: Result Comment: (Positive cutoff 200 ng/mL) Performed By: #### U AX, KAUSHAL #### [facility] [address] [place] [address] Drums Teacher: Foreign Page DO Cannabinoid(s),Ur Negative Normal NEG [facility] Comment on above: Result Comment: (Positive cutoff 50 ng/mL) Performed By: #### U AX, KAUSHAL #### [facility] [address] [place] [address] Drums Teacher: Foreign Page DO Cocaine Metabolite Negative Normal NEG [facility] Comment on above: Result Comment: (Positive cutoff 300 ng/mL) Performed By: #### U AX, KAUSHAL #### [facility] [address] [place] [address] [id number] Drums Teacher: Foreign Page DO Fentanyl, Urine Negative Normal NEG [facility] Comment on above: Result Comment: (Positive cutoff 5 ng/ml) Performed By: #### U AX, KAUSHAL #### [facility] [address] [place] [address] [id number] Drums Teacher: Foreign Page DO Interpretive Info Assay provides medic al screening only. The absence of expected drug(s) and/or Normal [facility] Comment on above: Result Comment: meta bolite(s) may indicate diluted or adulterated urine, limitations of testing or timing of collection. Testing for legal purposes should be confirmed by another method. To request confirmation of test result, please call the lab within 7 days of sample submission. Performed By: #### U AX, KAUSHAL #### [facility] [address] [place] [address] [id number] Drums Teacher: Foreign Page DO Methadone Ql (U) Positive Abnormal NEG [facility] Comment on above: Result Comment: (Positive cutoff 300 ng/mL) Performed By: #### U AX, KAUSHAL #### [facility] [address] [place] [address] [id number] Drums Teacher: Foreign Page DO Opiate(s), Ur Negative Normal NEG [facility] Comment on above: Result Comment: (Positive cutoff 300 ng/mL) Performed By: #### U AX, KAUSHAL #### [facility] [address] [place] [address] [id number] Drums Teacher: Foreign Page DO Oxycodone, Urine Negative Normal NEG [facility] Comment on above: Result Comment: (Positive cutoff 100 ng/mL) Performed By: #### U AX, KAUSHAL #### [facility] [address] [place] [address] Drums Teacher: Foreign Page DO Phencyclidine, Ur Negative Normal [facility] Comment on above: Result Comment: (Positive cutoff 25 ng/mL) Performed By: #### U AX, KAUSHAL #### [facility] [address] [place] [address] Drums Teacher: Foreign Page DO ETOHon 03-12-2022 Ethanol [Mass/Vol] 358 mg/dL Critically high NINF - 10 mg/dL [facility] Ethanol percent 0.358 % [facility] Ethanol Alcoholon 03-12-2022 Ethanol [Mass/Vol] 358 mg/dL Critically high <10 M [facility] Comment on above: Performed By: #### C DP, CP, MG, HCG, ACET, ALCB, SALI #### [facility] [address] [place] [address] Drums Teacher: Foreign Page DO Ethanol percent 0.358 % [facility] Comment on above: Performed By: #### C DP, CP, MG, HCG, ACET, ALCB, SALI #### [facility] [address] [place] [address] [id number] Drums Teacher: Foreign Page DO HCG Qualitative, Serumon hCG Qual Negative NEGATIVE [facility] Comment on above: Specimens with hCG l evels near the threshold of the test (25 mIU/mL) may give a negative or indeterminate result. In such cases, another test should be performed with a new specimen in 48-72 hours. If early is suspected clinically in this setting, correlation with quantitative serum b-hCG level is suggested. [facility] HCG Screen, Bloodon 03-12-19 HCG Screen, Blood Negative Normal NEG [facility] Comment on above: Result Comment: Spec imens [...] CP, MG, HCG, ACET, ALCB, SALI #### [facility] [address] [place] [address] Drums Teacher: Foreign Page DO Magnesiumon 03-12-2022 Magnesium [Mass/Vol] 2.0 mg/dL Normal 1.6-2.6 [facility] Comment on above: Performed By: #### C DP, CP, MG, HCG, ACET, ALCB, SALI #### [facility] [address] [place] [address] [phone] Drums Teacher: Foreign Page DO Magnesium [Mass/Vol] 2.0 mg/dL 1.6 - 2 .6 mg/dL [facility] No Panel Informationon 03-12 Interpretation and review of laboratory results Abnormal [facility] Salicylateon 03-12-2022 Salicylate <1 Low 3-10 [facility] Comment on above: Performed By: #### C DP, CP, MG, HCG, ACET, ALCB, SALI #### [facility] [place] [address] Drums Teacher: Foreign Page DO Salicylate Lvl mg/dL Low 3 - 10 mg/dL [facility] UA w/Reflex Cultureon 2022 Bilirubin, SemiQt,Ur Negative Normal NEG [facility] Comment on above: Performed By: #### U AX, KAUSHAL #### [facility] [place] [address] Drums Teacher: Foreign Page DO Blood, Urine Negative Normal NEG [facility] Comment on above: Performed By: #### U AX, KAUSHAL #### [facility] [address] [place] [address] [id number] Drums Teacher: Foreign Page DO Clarity (U) Clear Normal CLEAR [facility] Comment on above: Performed By: #### U AX, KAUSHAL #### [facility] [address] [place] [address] [phone] Drums Teacher: Foreign Page DO Color (U) Yellow Normal YEL [facility] Comment on above: Performed By: #### U AX, KAUSHAL #### [facility] [address] [place] [address] [id number] Drums Teacher: Foreign Page DO Comment Microscopic exam not performed based on chemical results unless requested in Normal [facility] Comment on above: Result Comment: orig inal order. Performed By: #### U AX, KAUSHAL #### [facility] [address] [place] [address] [id number] Drums Teacher: Foreign Page DO Glucose Ql (U) Negative Normal NEG [facility] Comment on above: Performed By: #### U AX, KAUSHAL #### [facility] [address] [place] [address] [phone] Drums Teacher: Foreign Page DO Ketones Ql (U) Negative Normal NEG [facility] Comment on above: Performed By: #### U AX, KAUSHAL #### [facility] [address] [place] [address] 33205 Drums Teacher: Foreign Page DO Leukocyte esterase Test strip Ql (U) Negative Normal NEG [facility] Comment on above: Performed By: #### U AX, KAUSHAL #### [facility] [address] [place] [address] [place] [address] Drums Teacher: Foreign Page DO Nitrite,Ur Negative Normal NEG [facility] Comment on above: Performed By: #### U AX, KAUSHAL #### [facility] [address] [place] [address] [id number] Drums Teacher: Foreign Page DO PH,Ur 6.0 Normal 5.0-8.0 [facility] Comment on above: Performed By: #### U AX, KAUSHAL #### [facility] [address] [place] [address] [phone] Drums Teacher: Foreign Page DO Protein Ql (U) Negative Normal NEG [facility] Comment on above: Performed By: #### U AX, KAUSHAL #### [facility] [address] [place] [address] [phone] Drums Teacher: Foreign Page DO Spec. [place],Ur 1.009 Normal 1.000-1.030 [facility] Comment on above: Performed By: #### U AX KAUSHAL #### [facility] [address] [place] [address] [phone] Drums Teacher: Foreign Page DO Urobilinogen,Ur Normal Normal NORM [facility] Comment on above: Performed By: #### U AX KAUSHAL #### [facility] [address] [place] [address] 42801 Drums Teacher: Foreign Page DO Urinalysis with Reflex to Cu ltureon 03-12-2022 Bilirubin Urine Negative NEGATIVE [facility] Color, UA Yellow Yellow [facility] Glucose, Ur Negative NEGATIVE [facility] Ketones Ql (U) Negative NEGATIVE [facility] Leukocyte esterase Test strip Ql (U) Negative NEGATIVE [facility] Nitrite, Urine Negative NEGATIVE [facility] pH, UA 6.0 5.0 - 8.0 [facility] Protein, UA Negative NEGATIVE [facility] Specific [place], UA 1.009 1.000 - 1.030 [email or web address] Turbidity UA Clear Clear [facility] Urinalysis Comments Microscopic exam not performed based on chemical results unless requested in original order. [email or web address] Urine Hgb Negative NEGATIVE [facility] Urobilinogen, Urine Normal Normal [facility] Urine Drug Screenon 03-12-19 Amphetamine Screen, Ur Negative NEGATIVE [facility] Comment on above: (Positive cutoff 1000 ng/mL) Barbiturate Screen, Ur Negative NEGATIVE [facility] Comment on above: (Positive cutoff 200 ng/mL) Benzodiazepine Screen, Urine Negative NEGATIVE [email or web address] Comment on above: (Positive cutoff 200 ng/mL) Cannabinoid Scrn, Ur Negative NEGATIVE [facility]aste2[facility]ricity[facility] Comment on above: (Positive cutoff 50 ng/mL) Cocaine Metabolite, Urine Negative NEGATIVE [email or web address] Comment on above: (Positive cutoff 300 ng/mL) Fentanyl, Ur Negative NEGATIVE [facility] Comment on above: (Positive cutoff 5 ng/ml) Interpretation and review of laboratory results Abnormal [email or web address] Methadone Screen, Urine Positive Abnormal NEGATIVE [email or web address] Comment on above: (Positive cutoff 300 ng/mL) Opiates, Urine Negative NEGATIVE [facility] [employer] Comment on above: (Positive cutoff 300 ng/mL) Oxycodone Screen, Ur Negative NEGATIVE [facility] Comment on above: (Positive cutoff 100 ng/mL) Phencyclidine, Urine Negative NEGATIVE [facility] Comment on above: (Positive cutoff 25 ng/mL) Test Information Assay provides medic al screening only. The absence of expected drug(s) and/or metabolite(s) may indicate diluted or adulterated urine, limitations of testing or timing of collection. [email or web address] Comment on above: Testing for legal pu rposes should be confirmed by another method. To request confirmation of test result, please call the lab within 7 days of sample submission. [facility] [employer] [facility] Amphetamine Screen Ql (U)Ord ered By: Ari Aguero on 03-05-2022 Amphetamines Ql (U) Negative Negative [facility] Barbiturates [Presence] in U rineOrdered By: Ari Aguero on 03-05-2022 Barbiturates Ql (U) Negative Negative [facility] Basophils Auto (Bld) [#/Vol] Ordered By: Ari Aguero on 03-05-2022 Basophils (Bld) [#/Vol] 0.1 10*3/uL 0.0-0.2 [facility] Basophils/100 WBC Auto (Bld) Ordered By: Ari Aguero on 03-05-2022 Basophils/100 WBC (Bld) 0.6 % . [facility] Benzodiazepines [Presence] i n UrineOrdered By: Ari Aguero on 03-05-2022 Benzodiazepines Ql (U) Negative Negative [facility] Bilirubin Test strip Ql (U)O rdered By: Ari Aguero on 03-05-2022 Bilirubin Ql (U) Negative Negative [facility] Body fluid albumin measureme nt (mass/volume)Ordered By: Ari Aguero on 03-05-2022 Albumin (Body fld) [Mass/Vol] 3.3 g/dL 3.2-5.5 [facility] Cannabinoids [Presence] in U rine by Screen methodOrdered By: Ari Aguero on 03-05-2022 Cannabinoids Screen Ql (U) Negative Negative [facility] Comment on above: These are unconfirme d results and should not be used for legal purposes. Drug Cut-Off Concentration: AMPH 1000 ng/mL JANELL 200 ng/mL JAMES 200 ng/mL COCM 300 ng/mL OP 300 ng/mL PCP 25 ng/mL THC 20 ng/mL Color Auto (U)Ordered By: Robin Aguero on 03-05-2022 Color (U) Yellow Yellow [facility] Creatinine and Glomerular fi ltration rate.predicted panel (S/P/Bld)Ordered By: Ari Aguero on 03-05-2022 Creatinine [Mass/Vol] 0.50 mg/dL 0.44-1.03 [facility] Eosinophils Auto (Bld) [#/Vo l]Ordered By: Ari Aguero on 03-05-2022 Eosinophils (Bld) [#/Vol] 0.1 10*3/uL 0.0-0.45 [facility] Eosinophils/100 WBC Auto (Bl d)Ordered By: Ari Aguero on 03-05-2022 Eosinophils/100 WBC (Bld) 1.1 % . [facility] Erythrocyte distribution wid th Auto (RBC) [Ratio]Ordered By: Ari Aguero on 03-05-2022 Erythrocyte distribution width (RBC) [Ratio] 13.0 % 11.9-15.3 [facility] Estimated glomerular filtrat ion rate (GFR) non- AmericanOrdered By: Ari Aguero on 03-05-2022 GFR/1.73 sq M.predicted among non-blacks MDRD (S/P/Bld) [Vol rate/Area] > 60 mL/Min [facility] Globulin Calc (S) [Mass/Vol] Ordered By: Ari Aguero on 03-05-2022 Globulin (S) [Mass/Vol] 4.2 g/dL [facility] HCG ( test) IA.rapi d Ql (U)Ordered By: Ari Aguero on 03-05-2022 HCG ( test) Ql (U) Negative [facility] Hematocrit Auto (Bld) [Volum e fraction]Ordered By: Ari Aguero on 03-05-2022 Hematocrit (Bld) [Volume fraction] 42.0 % 34.0-46.4 [facility] Hemoglobin [Mass/volume] in BloodOrdered By: Ari Aguero on 03-05-2022 Hemoglobin (Bld) [Mass/Vol] 14.0 g/dL 11.8-15.4 [facility] Ketones Auto test strip (U) [Mass/Vol]Ordered By: Ari Aguero on 03-05-2022 Ketones (U) [Mass/Vol] Negative Negative [facility] Laboratory - Drug toxicology Ordered By: Ari Aguero on 03-05-2022 Opiates Ql (U) Negative Negative [facility] Leukocytes [#/volume] correc jose for nucleated erythrocytes in Blood by Automated counOrdered By: Ari Aguero on 03-05-2022 WBC corrected for nucl RBC Auto (Bld) [#/Vol] 11.6 10*3/uL 3.8-11.6 [facility] Lymphocytes Auto (Bld) [#/Vo l]Ordered By: Ari Aguero on 03-05-2022 Lymphocytes (Bld) [#/Vol] 3.2 10*3/uL 1.00-4.8 [facility] Lymphocytes/100 WBC Auto (Bl d)Ordered By: Ari Aguero on 03-05-2022 Lymphocytes/100 WBC (Bld) 27.3 % . [facility] MCH Auto (RBC) [Entitic mass ]Ordered By: Ari Aguero on 03-05-2022 MCH (RBC) [Entitic mass] 31.0 pg 24.7-34.3 [facility] MCHC Auto (RBC) [Mass/Vol]Or dered By: Ari Aguero on 03-05-2022 MCHC (RBC) [Mass/Vol] 33.3 g/dL 32.0-35.0 [facility] MCV Auto (RBC) [Entitic vol] Ordered By: Ari Aguero on 03-05-2022 MCV (RBC) [Entitic vol] 93.1 fL 80-100 [facility] Monocyte distribution width [Entitic volume] in Blood by AutomatedOrdered By: Ari Aguero on 03-05-2022 Monocyte distribution width Auto (Bld) [Entitic vol] 19.04 % 0.00-20.00 [facility] Monocytes Auto (Bld) [#/Vol] Ordered By: Ari Aguero on 03-05-2022 Monocytes (Bld) [#/Vol] 0.7 10*3/uL 0.0-0.8 [facility] Monocytes/100 WBC Auto (Bld) Ordered By: Ari Aguero on 03-05-2022 Monocytes/100 WBC (Bld) 5.9 % . [facility] Neutrophils Auto (Bld) [#/Vo l]Ordered By: Ari Aguero on 03-05-2022 Neutrophils (Bld) [#/Vol] 7.6 10*3/uL 1.8-7.7 [facility] Neutrophils/100 WBC Auto (Bl d)Ordered By: Ari Aguero on 03-05-2022 Neutrophils/100 WBC (Bld) 65.1 % . [facility] Nitrite Test strip Ql (U)Ord ered By: Ari Aguero on 03-05-2022 Nitrite Ql (U) Negative Negative [facility] No Panel InformationOrdered By: Ari Aguero on 03-05-2022 Estimated GFR () > 60 mL/Min [facility] Comment on above: GFR estimated refere nce range: According to KDOQI guidelines, <60 ml/min/1.73m2 is sufficient to diagnose a patient with chronic kidney disease. Pharmacy Creatinine Clearance (Chem 158.18 [facility] Nucleated erythrocytes [Pres ence] in Blood by Automated countOrdered By: Ari Aguero on 03-05-2022 Nucleated RBC Auto Ql (Bld) 0.1 /100{WBC} 0-0.5 [facility] Phencyclidine Screen Ql (U)O rdered By: Ari Aguero on 03-05-2022 Phencyclidine Ql (U) Negative Negative [facility] Platelet mean volume Auto (B ld) [Entitic vol]Ordered By: rAi Aguero on 03-05-2022 Platelet mean volume (Bld) [Entitic vol] 7.7 fL 6.3-10.7 [facility] Platelets Auto (Bld) [#/Vol] Ordered By: Ari Aguero on 03-05-2022 Platelets (Bld) [#/Vol] 277 10*3/uL 150-450 [facility] Protein Auto test strip (U) [Mass/Vol]Ordered By: Ari Aguero on 03-05-2022 Protein (U) [Mass/Vol] Negative Negative [facility] Protein [Mass/volume] in Ser um or PlasmaOrdered By: Ari Aguero on 03-05-2022 Protein [Mass/Vol] 7.5 g/dL 6.1-7.9 [facility] RBC Auto (Bld) [#/Vol]Ordere d By: Ari Aguero on 03-05-2022 RBC (Bld) [#/Vol] 4.51 10*6/uL 3.60-5.[address] [facility] Serum or plasma alanine urbina otransferase measurement without P-5'-P (enzymatic activiOrdered By: Ari Aguero on 03-05-2022 ALT No additional P-5'-P [Catalytic activity/Vol] 106 U/L 10-60 [facility] Serum or plasma albumin/glob ulin mass ratioOrdered By: Ari Aguero on 03-05-2022 Albumin/Globulin [Mass ratio] 0.8 {ratio} [facility] Serum or plasma alkaline maya sphatase measurement (enzymatic activity/volume)Ordered By: Ari Aguero on 03-05-2022 ALP [Catalytic activity/Vol] 94 U/L 32-92 [facility] Serum or plasma anion gap de terminationOrdered By: Ari Aguero on 03-05-2022 Anion gap [Moles/Vol] 14.1 mmol/L 6.0-15.0 [facility] Serum or plasma aspartate am inotransferase measurement (enzymatic activity/volume)Ordered By: Ari Aguero on 03-05-2022 AST [Catalytic activity/Vol] 146 U/L 10-42 [facility] Serum or plasma calcium judi urement (mass/volume)Ordered By: Ari Aguero on 03-05-2022 Calcium [Mass/Vol] 8.9 mg/dL 8.2-10.2 [facility] Serum or plasma chloride nataliia surement (moles/volume)Ordered By: Ari Aguero on 03-05-2022 Chloride [Moles/Vol] 105 mmol/L 95-114 [facility] Serum or plasma ethanol judi urement (mass/volume)Ordered By: Ari Aguero on 03-05-2022 Ethanol [Mass/Vol] 277 mg/dL [facility] Ethanol [Mass/Vol] 0.277 % [facility] Serum or plasma glucose judi urement (mass/volume)Ordered By: Ari Aguero on 03-05-2022 Glucose [Mass/Vol] 83 mg/dL 70-100 [facility] Comment on above: ADA recommended refe rence rangeRandom Glucose Reference Range is dependent on time and content of last meal. Glucose of more than 200 mg/dL in a nonstressed, ambulatory subject supports the diagnosis of Diabetes Mellitus. Serum or plasma potassium me asurement (moles/volume)Ordered By: Ari Aguero on 03-05-2022 Potassium [Moles/Vol] 3.7 mmol/L 3.5-5.1 [facility] Serum or plasma sodium measu rement (moles/volume)Ordered By: Ari Aguero on 03-05-2022 Sodium [Moles/Vol] 138 mmol/L 136-146 [facility] Serum or plasma total biliru bin measurement (mass/volume)Ordered By: Ari Aguero on 03-05-2022 Bilirubin [Mass/Vol] 0.4 mg/dL 0.3-1.2 [facility] Serum or plasma total carbon dioxide measurement (moles/volume)Ordered By: Ari Aguero on 03-05-2022 CO2 [Moles/Vol] 22.6 mmol/L 22.0-30.0 [facility] Serum or plasma urea nitroge n measurement (mass/volume)Ordered By: Ari Aguero on 03-05-2022 Urea nitrogen [Mass/Vol] 3 mg/dL 9- [facility] Specific gravity Auto test s trip (U) [Rel density]Ordered By: Ari Aguero on 03-05-2022 Specific gravity (U) [Rel density] 1.008 1.001-1.030 [facility] Urine clarity by refractomet ry automatedOrdered By: Ari Aguero on 03-05-2022 Clarity Refractometry automated (U) Clear Clear [facility] Urine cocaine detectionOrder ed By: Ari Aguero on 03-05-2022 Cocaine Ql (U) Positive Negative [facility] Urine glucose measurement by automated test strip (mass/volume)Ordered By: Ari Aguero on 03-05-2022 Glucose Auto test strip (U) [Mass/Vol] Normal mg/dL Normal [facility] Urine hemoglobin detection b y automated test stripOrdered By: Ari Aguero on 03-05-2022 Hemoglobin Auto test strip Ql (U) Negative Negative [facility] Urine leukocyte esterase det ection by automated test stripOrdered By: Ari Aguero on 03-05-2022 Leukocyte esterase Auto test strip Ql (U) Negative Negative [facility] Urobilinogen Auto test strip (U) [Mass/Vol]Ordered By: Ari Aguero on 01-23-2023 Urobilinogen (U) [Mass/Vol] Normal mg/dL Normal [facility] WBC Auto (Bld) [#/Vol]Ordere d By: Ari Aguero on 03-05-2022 WBC (Bld) [#/Vol] 11.6 10*3/uL 3.8-11.[address] [facility] pH Auto test strip (U)Ordere d By: Ari Aguero on 03-05-2022 pH (U) 5.5 [pH] 5.0-9.0 [facility] Amphetamine Screen Ql (U)Ord ered By: Declan Marina on 02-20-2022 Amphetamines Ql (U) Negative Negative [facility] Barbiturates [Presence] in U rineOrdered By: Declan Marina on 02-20-2022 Barbiturates Ql (U) Negative Negative [facility] Basophils Auto (Bld) [#/Vol] Ordered By: Declan Marina on 02-20-2022 Basophils (Bld) [#/Vol] 0.1 10*3/uL 0.0-0.2 [facility] Basophils/100 WBC Auto (Bld) Ordered By: Declan Marina on 02-20-2022 Basophils/100 WBC (Bld) 1.4 % . [facility] Benzodiazepines [Presence] i n UrineOrdered By: Declan Marina on 02-20-2022 Benzodiazepines Ql (U) Negative Negative [facility] Bilirubin Test strip Ql (U)O rdered By: Declan Marina on 02-20-2022 Bilirubin Ql (U) Negative Negative [facility] Body fluid albumin measureme nt (mass/volume)Ordered By: Declan Marina on 02-20-2022 Albumin (Body fld) [Mass/Vol] 3.8 g/dL 3.2-5.5 [facility] Cannabinoids [Presence] in U rine by Screen methodOrdered By: Declan Marina on 02-20-2022 Cannabinoids Screen Ql (U) Negative Negative [facility] Comment on above: These are unconfirme d results and should not be used for legal purposes. Drug Cut-Off Concentration: AMPH 1000 ng/mL JANELL 200 ng/mL JAMES 200 ng/mL COCM 300 ng/mL OP 300 ng/mL PCP 25 ng/mL THC 20 ng/mL Color Auto (U)Ordered By: Akiko Marina on 02-20-2022 Color (U) Yellow Yellow [facility] Creatinine and Glomerular fi ltration rate.predicted panel (S/P/Bld)Ordered By: Declan Marina on 02-20-2022 Creatinine [Mass/Vol] 0.57 mg/dL 0.44-1.03 [facility] Eosinophils Auto (Bld) [#/Vo l]Ordered By: Declan Marina on 02-20-2022 Eosinophils (Bld) [#/Vol] 0.1 10*3/uL 0.0-0.45 [facility] Eosinophils/100 WBC Auto (Bl d)Ordered By: Declan Marina on 02-20-2022 Eosinophils/100 WBC (Bld) 0.5 % . [facility] Erythrocyte distribution wid th Auto (RBC) [Ratio]Ordered By: Declan Marina on 02-20-2022 Erythrocyte distribution width (RBC) [Ratio] 12.8 % 11.9-15.3 [facility] Estimated glomerular filtrat ion rate (GFR) non- AmericanOrdered By: Declan Marina on 02-20-2022 GFR/1.73 sq M.predicted among non-blacks MDRD (S/P/Bld) [Vol rate/Area] > 60 mL/Min [facility] Globulin Calc (S) [Mass/Vol] Ordered By: Declan Marina on 02-20-2022 Globulin (S) [Mass/Vol] 3.3 g/dL [facility] HCG ( test) IA.rapi d Ql (U)Ordered By: Declan Marina on 02-20-2022 HCG ( test) Ql (U) Negative [facility] Hematocrit Auto (Bld) [Volum e fraction]Ordered By: Declan Marina on 02-20-2022 Hematocrit (Bld) [Volume fraction] 44.9 % 34.0-46.4 [facility] Hemoglobin [Mass/volume] in BloodOrdered By: Declan Marina on 02-20-2022 Hemoglobin (Bld) [Mass/Vol] 15.2 g/dL 11.8-15.4 [facility] Ketones Auto test strip (U) [Mass/Vol]Ordered By: Declan Marina on 02-20-2022 Ketones (U) [Mass/Vol] Negative Negative [facility] Laboratory - Drug toxicology Ordered By: Declan Marina on 02-20-2022 Opiates Ql (U) Negative Negative [facility] Leukocytes [#/volume] correc jose for nucleated erythrocytes in Blood by Automated counOrdered By: Declan Marina on 02-20-2022 WBC corrected for nucl RBC Auto (Bld) [#/Vol] 9.8 10*3/uL 3.8-11.6 [facility] Lymphocytes Auto (Bld) [#/Vo l]Ordered By: Declan Marina on 02-20-2022 Lymphocytes (Bld) [#/Vol] 3.0 10*3/uL 1.00-4.8 [facility] Lymphocytes/100 WBC Auto (Bl d)Ordered By: Declan Marina on 02-20-2022 Lymphocytes/100 WBC (Bld) 30.9 % . [facility] MCH Auto (RBC) [Entitic mass ]Ordered By: Declan Marina on 02-20-2022 MCH (RBC) [Entitic mass] 31.6 pg 24.7-34.3 [facility] MCHC Auto (RBC) [Mass/Vol]Or dered By: Declan Marina on 02-20-2022 MCHC (RBC) [Mass/Vol] 33.9 g/dL 32.0-35.0 [facility] MCV Auto (RBC) [Entitic vol] Ordered By: Declan Marina on 02-20-2022 MCV (RBC) [Entitic vol] 93.1 fL 80-100 [facility] Monocyte distribution width [Entitic volume] in Blood by AutomatedOrdered By: Declan Marina on 02-20-2022 Monocyte distribution width Auto (Bld) [Entitic vol] 15.19 % 0.00-20.00 [facility] Monocytes Auto (Bld) [#/Vol] Ordered By: Declan Marina on 02-20-2022 Monocytes (Bld) [#/Vol] 0.4 10*3/uL 0.0-0.8 [facility] Monocytes/100 WBC Auto (Bld) Ordered By: Declan Marina on 02-20-2022 Monocytes/100 WBC (Bld) 3.7 % . [facility] Neutrophils Auto (Bld) [#/Vo l]Ordered By: Declan Marina on 02-20-2022 Neutrophils (Bld) [#/Vol] 6.2 10*3/uL 1.8-7.7 [facility] Neutrophils/100 WBC Auto (Bl d)Ordered By: Declan Marina on 02-20-2022 Neutrophils/100 WBC (Bld) 63.5 % . [facility] Nitrite Test strip Ql (U)Ord ered By: Declan Marina on 02-20-2022 Nitrite Ql (U) Negative Negative [facility] No Panel InformationOrdered By: Declan Marina on 02-20-2022 Estimated GFR () > 60 mL/Min [facility] Comment on above: GFR estimated refere nce range: According to KDOQI guidelines, <60 ml/min/1.73m2 is sufficient to diagnose a patient with chronic kidney disease. Pharmacy Creatinine Clearance (Chem 140.39 [facility] Nucleated erythrocytes [Pres ence] in Blood by Automated countOrdered By: Declan Marina on 02-20-2022 Nucleated RBC Auto Ql (Bld) 0.2 /100{WBC} 0-0.5 [facility] Phencyclidine Screen Ql (U)O rdered By: Declan Marina on 02-20-2022 Phencyclidine Ql (U) Negative Negative [facility] Platelet mean volume Auto (B ld) [Entitic vol]Ordered By: Declan Marina on 02-20-2022 Platelet mean volume (Bld) [Entitic vol] 7.8 fL 6.3-10.7 [facility] Platelets Auto (Bld) [#/Vol] Ordered By: Declan Marina on 02-20-2022 Platelets (Bld) [#/Vol] 219 10*3/uL 150-450 [facility] Protein Auto test strip (U) [Mass/Vol]Ordered By: Declan Marina on 02-20-2022 Protein (U) [Mass/Vol] Negative Negative [facility] Protein [Mass/volume] in Ser um or PlasmaOrdered By: Declan Marina on 02-20-2022 Protein [Mass/Vol] 7.1 g/dL 6.1-7.9 [facility] RBC Auto (Bld) [#/Vol]Ordere d By: Declan Marina on 02-20-2022 RBC (Bld) [#/Vol] 4.82 10*6/uL 3.60-5.[address] [facility] Serum or plasma alanine urbina otransferase measurement without P-5'-P (enzymatic activiOrdered By: Declan Marina on 02-20-2022 ALT No additional P-5'-P [Catalytic activity/Vol] 141 U/L 10-60 [facility] Serum or plasma albumin/glob ulin mass ratioOrdered By: Declan Marina on 02-20-2022 Albumin/Globulin [Mass ratio] 1.2 {ratio} [facility] Serum or plasma alkaline maya sphatase measurement (enzymatic activity/volume)Ordered By: Declan Marina on 02-20-2022 ALP [Catalytic activity/Vol] 84 U/L 32-92 [facility] Serum or plasma anion gap de terminationOrdered By: Declan Marina on 02-20-2022 Anion gap [Moles/Vol] 16.0 mmol/L 6.0-15.0 [facility] Serum or plasma aspartate am inotransferase measurement (enzymatic activity/volume)Ordered By: Declan Marina on 02-20-2022 AST [Catalytic activity/Vol] 169 U/L 10-42 [facility] Serum or plasma calcium judi urement (mass/volume)Ordered By: Declan Marina on 02-20-2022 Calcium [Mass/Vol] 8.5 mg/dL 8.2-10.2 [facility] Serum or plasma chloride nataliia surement (moles/volume)Ordered By: Declan Marina on 02-20-2022 Chloride [Moles/Vol] 103 mmol/L 95-114 [facility] Serum or plasma ethanol judi urement (mass/volume)Ordered By: Declan Marina on 02-20-2022 Ethanol [Mass/Vol] 347 mg/dL [facility] Ethanol [Mass/Vol] 0.347 % [facility] Serum or plasma glucose judi urement (mass/volume)Ordered By: Declan Marina on 02-20-2022 Glucose [Mass/Vol] 76 mg/dL 70-100 [facility] Comment on above: ADA recommended refe rence rangeRandom Glucose Reference Range is dependent on time and content of last meal. Glucose of more than 200 mg/dL in a nonstressed, ambulatory subject supports the diagnosis of Diabetes Mellitus. Serum or plasma potassium me asurement (moles/volume)Ordered By: Declan Marina on 02-20-2022 Potassium [Moles/Vol] 3.6 mmol/L 3.5-5.1 [facility] Serum or plasma sodium measu rement (moles/volume)Ordered By: Declan Marina on 02-20-2022 Sodium [Moles/Vol] 140 mmol/L 136-146 [facility] Serum or plasma total biliru bin measurement (mass/volume)Ordered By: Declan Marina on 02-20-2022 Bilirubin [Mass/Vol] 0.5 mg/dL 0.3-1.2 [facility] Serum or plasma total carbon dioxide measurement (moles/volume)Ordered By: Declan Marina on 02-20-2022 CO2 [Moles/Vol] 24.6 mmol/L 22.0-30.0 [facility] Serum or plasma urea nitroge n measurement (mass/volume)Ordered By: Declan Marina on 02-20-2022 Urea nitrogen [Mass/Vol] 2 mg/dL 9-23 [facility] Specific gravity Auto test s trip (U) [Rel density]Ordered By: Declan Marina on 02-20-2022 Specific gravity (U) [Rel density] 1.007 1.001-1.030 [facility] Urine clarity by refractomet ry automatedOrdered By: Declan Marina on 02-20-2022 Clarity Refractometry automated (U) Clear Clear [facility] Urine cocaine detectionOrder ed By: Declan Marina on 02-20-2022 Cocaine Ql (U) Negative Negative [facility] Urine glucose measurement by automated test strip (mass/volume)Ordered By: Declan Marina on 02-20-2022 Glucose Auto test strip (U) [Mass/Vol] Normal mg/dL Normal [facility] Urine hemoglobin detection b y automated test stripOrdered By: Declan Marina on 02-20-2022 Hemoglobin Auto test strip Ql (U) Negative Negative [facility] Urine leukocyte esterase det ection by automated test stripOrdered By: Decaln Marina on 02-20-2022 Leukocyte esterase Auto test strip Ql (U) Negative Negative [facility] Urobilinogen Auto test strip (U) [Mass/Vol]Ordered By: Declan Marina on 02-20-2022 Urobilinogen (U) [Mass/Vol] Normal mg/dL Normal [facility] WBC Auto (Bld) [#/Vol]Ordere d By: Declan Marina on 02-20-2022 WBC (Bld) [#/Vol] 9.8 10*3/uL 3.8-11.6 [facility] pH Auto test strip (U)Ordere d By: Declan Marnia on 02-20-2022 pH (U) 6.0 [pH] 5.0-9.0 [facility] CHEMISTRYOrdered By: SYSTEM SYSTEM on 07-26-2021 Albumin [...] mg/dL [facility] Remisol GFR/1.73 sq M.predicted among blacks MDRD (S/P/Bld) [Vol rate/Area] mL/min/1.73 m2 Normal >=59mL/min/1 .73 m2 [facility] Chem S GFR/1.73 sq M.predicted among non-blacks MDRD (S/P/Bld) [Vol rate/Area] mL/min/1.73 m2 Normal >=59mL/min/1 .73 m2 [facility] Chem S Globulin (S) [Mass/Vol] 3.5 g/dL Normal 1.4 - 4.0 gm/dL [facility] Glucose [Mass/Vol] 103 mg/dL Normal 55 - 199 mg/dL [facility] Lipase [Catalytic activity/Vol] 28 U/L Normal 13 - 58 unit/L [facility] Potassium [Moles/Vol] 3.9 mmol/L Normal 3.5 - 5.3 mmol/L [facility] Remisol Protein [Mass/Vol] 7.3 g/dL Normal 6.0 [...] PM) Normal Negative [facility] UA Auto SS Sloan.plasma/Lithiu m.RBC (Bld) [Mass ratio] 0-3 /HPF Normal [...] Desc Clean Catch (07/26/21 8:33 PM) Normal [facility] UA Auto SS Urobilinogen Qn (U) [id number] {Surinder'U}/dL Normal 0.0 - 1.0 EU/dL [facility] UA Auto SS WBC Auto Ql (U) Negative (07/26/21 8:33 PM) Normal Negative [facility] UA Auto SS WBC LM.HPF (Urine sed) [#/Area] 0-5 /HPF Normal 0-5/HPF [facility] UA Auto SS CBC With Platelet and Differ entialon 05-31-2021 Abs Imm Granulocytes 0.01 E9/L Normal [facility] Absolute Basophils 0.02 E9/L Normal 0.00-0.20 [facility] Absolute Eosinophils 0.06 E9/L Normal 0.05-0.50 [facility] Absolute Lymphocytes 2.46 E9/L Normal 1.50-4.00 [facility] Absolute Monocytes 0.52 E9/L Normal 0.10-0.95 [facility] Absolute Neutrophils 3.85 E9/L Normal 1.80-7.30 [facility] Basophils/100 WBC (Bld) 0.3 % Normal 0.0-2.0 [facility] Eosinophils/100 WBC (Bld) 0.9 % Normal 0.0-6.0 [facility] Hematocrit (Bld) [Volume fraction] 42.1 % Normal 34.0-48.0 [facility] Hemoglobin (Bld) [Mass/Vol] 14.2 g/dL Normal 11.5-15.5 [facility] Imm Granulocytes 0.1 % Normal 0.0-5.0 [facility] Lymphocytes/100 WBC (Bld) 35.5 % Normal 20.0-42.0 [facility] MCH (RBC) [Entitic mass] 31.2 pg Normal 26.0-35.0 [facility] MCHC 33.7 % Normal 32.0-34.5 [facility] MCV (RBC) [Entitic vol] 92.5 fL Normal 80.0-99.9 [facility] Monocytes/100 WBC (Bld) 7.5 % Normal 2.0-12.0 [facility] Neutrophils/100 WBC (Bld) 55.7 % Normal 43.0-80.0 [facility] Platelet Count 240 E9/L Normal 130-450 [facility] Platelet mean volume (Bld) [Entitic vol] 10.1 fL Normal 7.0-12.0 [facility] RBC 4.55 E12/L Normal 3.50-5.50 [facility] RDW 12.3 fL Normal 11.5-15.0 [facility] WBC 6.9 E9/L Normal 4.5-11.5 [facility] CBC with Auto Differentialon 05-31-2021 Basophils (Bld) [#/Vol] 0.02 10*3/uL [facility] [employer] Basophils/100 WBC (Bld) 0.3 % 0.0 - 2.0 % [facility] Eosinophils Absolute 0.[address] [facility] Lust have it! Eosinophils/100 WBC (Bld) 0.9 % 0.0 - 6.0 % [facility] Hematocrit (Bld) [Volume fraction] 42.1 % 34.0 - 48.0 % [facility] Hemoglobin.gastrointe stinal spec 1 Ql (Stl) 14.2 g/dL 11.5 - 15.5 g/dL [facility] Immature Granulocytes # 0.01 E9/L [facility] [employer] Immature granulocytes/100 WBC (Bld) 0.1 % 0.0 - 5.0 % [facility] Lymphocytes Absolute 2.[address] [facility] Lust have it! Lymphocytes/100 WBC (Bld) 35.5 % 20.0 - 42.0 % [facility] [employer] MCH (RBC) [Entitic mass] 31.2 pg 26.0 - 35.0 pg [facility] [employer] MCHC (RBC) [Mass/Vol] 33.7 % 32.0 - 34.5 % [facility] MCV (RBC) [Entitic vol] 92.5 fL 80.0 - 99.[address] [facility] [address] Monocytes Absolute 0.52 [facility] [employer] Monocytes/100 WBC (Bld) 7.5 % 2.0 - 12.0 % [facility] [employer] Neutrophils Absolute 3.85 [facility] Neutrophils/100 WBC (Bld) 55.7 % 43.0 - 80.0 % [facility] Platelet distribution width (Bld) [Ratio] 12.3 fL 11.5 - 15.0 fL [facility] Platelet mean volume (Bld) [Entitic vol] 10.1 fL 7.0 - 12.0 fL [facility] Platelets (Bld) [#/Vol] 240 10*3/uL [facility] RBC (Bld) [#/Vol] 4.55 10*6/uL [facility] WBC (Bld) [#/Vol] 6.9 10*3/uL [facility] Comprehensive Metabolic Pane mary beth 05-31-2021 Albumin [Mass/Vol] 3.9 g/dL Normal 3.5-5.2 [facility] ALP [Catalytic activity/Vol] 85 U/L Normal 35-104 [facility] ALT [Catalytic activity/Vol] 53 U/L High 0-32 [facility] Anion gap [Moles/Vol] 9 mmol/L Normal 7-16 [facility] AST [Catalytic activity/Vol] 70 U/L High 0-31 [facility] Bilirubin [Mass/Vol] 0.2 mg/dL Normal 0.0-1.2 [facility] Calcium [Mass/Vol] 9.0 mg/dL Normal 8.6-10.2 [facility] Chloride [Moles/Vol] 104 mmol/L Normal 98-107 [facility] CO2 [Moles/Vol] 23 mmol/L Normal 22-29 [facility] Creatinine [Mass/Vol] 0.5 mg/dL Normal 0.5-1.0 [facility] GFR Calculated >60 Normal >=60 [facility] Comment on above: Result Comment: [employer] justin Kidney Disease: less than 60 ml/min/1.73 sq.m. Kidney Failure: less than 15 ml/min/1.73 sq.m. Results valid for patients 18 years and older. GFR/1.73 sq M.predicted among blacks MDRD (S/P/Bld) [Vol rate/Area] mL/min/{1.73_m2} Normal [facility] Glucose [Mass/Vol] 91 mg/dL Normal 74-99 [facility] Potassium [Moles/Vol] 4.8 mmol/L Normal 3.5-5.0 [facility] Protein [Mass/Vol] 7.4 g/dL Normal 6.4-8.3 [facility] Sodium [Moles/Vol] 136 mmol/L Normal 132-146 [facility] Urea nitrogen [Mass/Vol] 6 mg/dL Normal 6-20 [facility] Albumin [Mass/Vol] 3.9 g/dL 3.5 - 5.2 g/dL [facility] ALP (Bld) [Catalytic activity/Vol] 85 U/L 35 - 104 U/L [facility] ALT [Catalytic activity/Vol] 53 U/L High 0 - 32 U/L [facility] Anion gap [Moles/Vol] 9 mmol/L 7 - 16 mmol/L [facility] AST [Catalytic activity/Vol] 70 U/L High 0 - 31 U/L [facility] Bilirubin [Mass/Vol] 0.2 mg/dL 0.0 - 1 .2 mg/dL [facility] Calcium [Mass/Vol] 9.0 mg/dL 8.6 - 10. 2 mg/dL [facility] [employer] Chloride [Moles/Vol] 104 mmol/L 98 - 10 7 mmol/L [facility] CO2 [Moles/Vol] 23 mmol/L 22 - 29 mmol/L [facility] Creatinine [Mass/Vol] 0.5 mg/dL 0.5 - 1.0 mg/dL [facility] Free PSA/Total PSA [Mass fraction] 7.4 g/dL 6.4 - 8.3 g/dL [facility] GFR >60 [facility] GFR Non- >60 >=60 mL/min/1.73 [facility] Comment on above: Chronic Kidney Disea se: less than 60 ml/min/1.73 sq.m. Kidney Failure: less than 15 ml/min/1.73 sq.m. Results valid for patients 18 years and older. Glucose [Mass/Vol] 91 mg/dL 74 - 99 mg/dL [facility] Interpretation and review of laboratory results Abnormal [facility] Potassium [Moles/Vol] 4.8 mmol/L 3.5 - 5.0 mmol/L [facility] Sodium [Moles/Vol] 136 mmol/L 132 - 146 mmol/L [facility] Urea nitrogen (BldV) [Mass/Vol] 6 mg/dL 6 - 20 mg/dL [facility] Lipid Panel Fastingon 2021 Cholesterol [Mass/Vol] 123 mg/dL Normal 0-199 [facility] HDL Cholesterol Fasting 30 mg/dL Normal >40 [facility] LDL Cholesterol (Calculated) Fasting 63 mg/dL Normal 0-99 [facility] Triglycerides Fasting 149 mg/dL Normal 0-149 [facility] VLDL Cholesterol (Calculated) Fasting 30 mg/dL Normal [facility] Lipid, Fastingon 05-31-2021 Cholesterol [Mass/Vol] 123 mg/dL 0 - 199 mg/dL [facility] Cholesterol in HDL [Mass/Vol] 30 mg/dL >40 [facility] Cholesterol in LDL [Mass/Vol] 63 mg/dL 0 - 99 mg/dL [facility] Cholesterol in VLDL [Mass/Vol] 30 mg/dL [facility] Triglyceride, Fasting 149 mg/dL 0 - 14 9 mg/dL [facility] Magnesiumon 05-31-2021 Magnesium [Mass/Vol] 1.8 mg/dL Normal 1.6-2.6 [facility] Magnesium [Mass/Vol] 1.8 mg/dL 1.6 - 2 .6 mg/dL [facility] No Panel Informationon 05-31 [facility] T4, Freeon 05-31-2021 Free T4 [Mass/Vol] 1.31 ng/dL 0.93 - 1. 70 ng/dL [facility] TSHon 05-31-2021 Interpretation and review of laboratory results Abnormal [facility] TSH Qn 0.141 m[IU]/L Low [facility] h [facility] TSH w/out Reflexon TSH w/out Reflex 0.141 uIU/mL Low 0.270-4.200 [facility] Thyroxine Freeon 05-31-2021 Thyroxine Free 1.31 ng/dL Normal 0.93-1.70 [facility] Vitamin D 25 Hydroxyon 05-31 Vit D, 25-Hydroxy 33 ng/mL 30 - 100 ng/mL [facility] Comment on above: <20 ng/mL........... ..Deficient 20-30 ng/mL...........Insufficient 30-100 ng/mL..........Sufficient >100 ng/mL............Toxic [facility] Vitamin D, 25-hydroxyon 05-13 Vitamin D, 25-hydroxy 33 ng/mL Normal 30-100 [facility] Comment on above: Result Comment: <20 ng/mL.............Deficient 20-30 ng/mL...........Insufficient 30-100 ng/mL..........Sufficient >100 ng/mL............Toxic Basic Metab w/rfx MGon 05-03 (cont.) Normal [facility] Comment on above: Result Comment: Aver age GFR for 20-29 years old: 116 mL/min/1.73sq m Chronic Kidney Disease: <60 mL/min/1.73sq m Kidney failure: <15 mL/min/1.73sq m eGFR calculated using average adult body mass. Additional eGFR calculator available at: http://www.[employer]/multiple_crcl_2011.htm Performed By: #### T ROPI, HCG, BMPX, CDP #### [employer] [address] [place] [phone] Drums Teacher: Clark Segovia MD Anion gap [Moles/Vol] 12 mmol/L Normal 9-17 [facility] Comment on above: Performed By: #### T ROPI, HCG, BMPX, CDP #### [employer] [address] [place] [phone] Drums Teacher: Clark Segovia MD Calcium [Mass/Vol] 9.2 mg/dL Normal 8.6-10.4 [facility] Comment on above: Performed By: #### T ROPI, HCG, BMPX, CDP #### [facility] [employer] [address] [place] [address] [phone] Drums Teacher: Clark Segovia MD Chloride [Moles/Vol] 102 mmol/L Normal 98-107 [facility] Comment on above: Performed By: #### T ROPI, HCG, BMPX, CDP #### [facility] [employer] [address] [place] [phone] Drums Teacher: Clark Segovia MD CO2 [Moles/Vol] 24 mmol/L Normal 20-31 [facility] Comment on above: Performed By: #### T ROPI, HCG, BMPX, CDP #### [facility] [employer] [address] [place] [address] [phone] Drums Teacher: Clark Segovia MD Creatinine [Mass/Vol] 0.50 mg/dL Normal 0.50-0.90 [facility] Comment on above: Performed By: #### T ROPI, HCG, BMPX, CDP #### [facility] [employer] [address] [place] [phone] Drums Teacher: Clark Segovia MD GFR, Amer >60 Normal >60 [facility] Comment on above: Performed By: #### T ROPI, HCG, BMPX, CDP #### [facility] [employer] [address] [place] [address] [phone] Drums Teacher: Clark Segovia MD GFR,non Amer >60 Normal >60 [facility] Comment on above: Performed By: #### T ROPI, HCG, BMPX, CDP #### [facility] [employer] [address] [place] [address] [phone] Drums Teacher: Clark Segovia MD Glucose [Mass/Vol] 95 mg/dL Normal 70-99 [facility] Comment on above: Performed By: #### T ROPI, HCG, BMPX, CDP #### [facility] [address] [place], [place] [phone] Drums Teacher: Clark Segovia MD Potassium [Moles/Vol] 3.8 mmol/L Normal 3.7-5.3 [facility] Comment on above: Performed By: #### T ROPI, HCG, BMPX, CDP #### [facility] [address] [place] [address] [phone] Drums Teacher: Clark Segovia MD Sodium [Moles/Vol] 138 mmol/L Normal 135-144 [facility] Comment on above: Performed By: #### T ROPI, HCG, BMPX, CDP #### [facility] [address] [place] [address] [phone] Drums Teacher: Clark Segovia MD Urea nitrogen [Mass/Vol] 4 mg/dL Low 6-20 [facility] Comment on above: Performed By: #### T ROPI, HCG, BMPX, CDP #### [facility] [address] [place] [address] [phone] Drums Teacher: Clark Segovia MD Basic Metabolic Panel w/ Ref paresh to MGon 05-03-2021 Anion gap [Moles/Vol] 12 mmol/L 9 - 17 mmol/L [facility] Calcium [Mass/Vol] 9.2 mg/dL 8.6 - 10. 4 mg/dL [facility] Chloride [Moles/Vol] 102 mmol/L 98 - 10 7 mmol/L [facility] CO2 [Moles/Vol] 24 mmol/L 20 - 31 mmol/L [facility] Creatinine [Mass/Vol] 0.5 mg/dL 0.50 - 0.90 mg/dL [facility] GFR >60 >60 mL/min -[place] GFR Non- >60 >60 mL/min [facility] GFR/1.73 sq M.predicted MDRD (S/P/Bld) [Vol rate/Area] [facility] Comment on above: Average GFR for 20-2 9 years old: 116 mL/min/1.73sq m Chronic Kidney Disease: <60 mL/min/1.73sq m Kidney failure: <15 mL/min/1.73sq m eGFR calculated using average adult body mass. Additional eGFR calculator available at: http://www.[employer]/multiple_crcl_2011.htm Glucose [Mass/Vol] 95 mg/dL 70 - 99 mg/dL [facility] Interpretation and review of laboratory results Abnormal [facility] Potassium [Moles/Vol] 3.8 mmol/L 3.7 - 5.3 mmol/L [facility] Sodium [Moles/Vol] 138 mmol/L 135 - 144 mmol/L [facility] Urea nitrogen (BldV) [Mass/Vol] 4 mg/dL Low 6 - 20 mg/dL [facility] CBC with Auto Differentialon 05-03-2021 Absolute Eos # 0.12 [facility] th Absolute Immature Granulocyte <0.03 [facility] Absolute Lymph # 2.11 [facility] alth Absolute [place] # 0.86 [facility] lth Basophils (Bld) [#/Vol] 0.04 10*3/uL [facility] Basophils/100 WBC (Bld) 1 % 0 - 2 % [facility] Eosinophils/100 WBC (Bld) 1 % 1 - 4 % [facility] Hematocrit (Bld) [Volume fraction] 39.2 % 36.3 - 47.1 % [facility] Hemoglobin.gastrointe stinal spec 1 Ql (Stl) 13.6 g/dL 11.9 - 15.1 g/dL [facility] Immature granulocytes/100 WBC (Bld) 0 % 0 [facility] Lymphocytes/100 WBC (Bld) 25 % 24 - 43 % [facility] MCH (RBC) [Entitic mass] 32.4 pg 25.2 - 33.5 pg [facility] MCHC (RBC) [Mass/Vol] 34.7 g/dL 28.4 - 34.8 g/dL [facility] MCV (RBC) [Entitic vol] 93.3 fL 82.6 - 102.9 fL [facility] Monocytes/100 WBC (Bld) 10 % 3 - 12 % [facility] NRBC Automated 0.0 0.0 per 100 WBC [facility] Platelet distribution width (Bld) [Ratio] 12.4 % 11.8 - 14.4 % [facility] Platelet mean volume (Bld) [Entitic vol] 10.2 fL 8.1 - 13.5 fL [facility] Platelets (Bld) [#/Vol] 196 10*3/uL [facility] RBC (Bld) [#/Vol] 4.20 10*6/uL 3.95 - 5.1 1 m/uL [facility] Segmented neutrophils/100 WBC (Bld) 63 % 36 - 65 % [facility] Segs Absolute 5.36 [facility]ld) [#/Vol] 8.5 10*3/uL [facility] CBC with Diffon 05-03-2021 Abs. Basophil 0.04 k/uL Normal 0.00-0.20 [facility] Comment on above: Performed By: #### T ROPI, HCG, BMPX, CDP #### [facility] [employer] [address] [place], [place] [id number] Drums Teacher: Clark Segovia MD Abs.Imm.Granulocyte <0.03 Normal 0.00-0.30 [facility] Comment on above: Performed By: #### T ROPI, HCG, BMPX, CDP #### [facility] [employer] [address] [place] [address] Drums Teacher: Clark Segovia MD Abs.Neutrophil (Seg) 5.36 k/uL Normal 1.50-8.10 [facility] Comment on above: Performed By: #### T ROPI, HCG, BMPX, CDP #### [employer] [address] [place] [address] Drums Teacher: Clark Segovia MD Basophils/100 WBC (Bld) 1 % Normal 0-2 [facility] Comment on above: Performed By: #### T ROPI, HCG, BMPX, CDP #### [facility] [address] [place] [address] Drums Teacher: Clark Segovia MD Eosinophils (Bld) [#/Vol] 0.12 10*3/uL Normal 0.00-0.44 [facility] Comment on above: Performed By: #### T ROPI, HCG, BMPX, CDP #### [facility] [employer] [address] [place] [address] Drums Teacher: Clark Segovia MD Eosinophils/100 WBC (Bld) 1 % Normal 1-4 [facility] Comment on above: Performed By: #### T ROPI, HCG, BMPX, CDP #### [facility] [employer] [address] [place] [phone] Drums Teacher: Clark Segovia MD Erythrocyte distribution width (RBC) [Ratio] 12.4 % Normal 11.8-14.4 [facility] Comment on above: Performed By: #### T ROPI, HCG, BMPX, CDP #### [address] [address] Drums Teacher: Clark Segovia MD Hematocrit (Bld) [Volume fraction] 39.2 % Normal 36.3-47.1 [facility] Comment on above: Performed By: #### T ROPI, HCG, BMPX, CDP #### [facility] [employer] [address] [place] [phone] Drums Teacher: Clark Segovia MD Hemoglobin (Bld) [Mass/Vol] 13.6 g/dL Normal 11.9-15.1 [facility] Comment on above: Performed By: #### T ROPI, HCG, BMPX, CDP #### [facility] [employer] [address] [place] [phone] Drums Teacher: Clark Segovia MD Immature granulocytes/100 WBC (Bld) 0 % Normal 0 [facility] Comment on above: Performed By: #### T ROPI, HCG, BMPX, CDP #### [facility] [employer] [address] [place] [address] Drums Teacher: Clark Segovia MD Lymphocytes (Bld) [#/Vol] 2.11 10*3/uL Normal 1.10-3.70 [facility] Comment on above: Performed By: #### T ROPI, HCG, BMPX, CDP #### [facility] [employer] [address] [place] [address] Drums Teacher: Clark Segovia MD Lymphocytes/100 WBC (Bld) 25 % Normal 24-43 [facility] Comment on above: Performed By: #### T ROPI, HCG, BMPX, CDP #### [facility] [employer] [address] [place] [phone] Drums Teacher: Clark Segovia MD MCH (RBC) [Entitic mass] 32.4 pg Normal 25.2-33.5 [facility] Comment on above: Performed By: #### T ROPI, HCG, BMPX, CDP #### [address] [address] Drums Teacher: Clark Segovia MD MCHC (RBC) [Mass/Vol] 34.7 g/dL Normal 28.4-34.8 [facility] Comment on above: Performed By: #### T ROPI, HCG, BMPX, CDP #### [facility] [employer] [address] [place] [address] Drums Teacher: Clark Segovia MD MCV (RBC) [Entitic vol] 93.3 fL Normal 82.6-102.9 [facility] Comment on above: Performed By: #### T ROPI, HCG, BMPX, CDP #### [facility] [employer] [address] [place] [address] Drums Teacher: Clark Segovia MD Monocytes (Bld) [#/Vol] 0.86 10*3/uL Normal 0.10-1.20 [facility] Comment on above: Performed By: #### T ROPI, HCG, BMPX, CDP #### [facility] [employer] [address] [place] [address] Drums Teacher: Clark Segovia MD Monocytes/100 WBC (Bld) 10 % Normal 3-12 [facility] Comment on above: Performed By: #### T ROPI, HCG, BMPX, CDP #### [facility] [address] [place] [address] Drums Teacher: Clark Segovia MD Neutrophil (Seg) 63 % Normal 36-65 [facility] Comment on above: Performed By: #### T ROPI, HCG, BMPX, CDP #### [facility] [employer] [address] [place] [address] Drums Teacher: Clark Segovia MD NRBC Automated 0.0 per 100 WBC Normal 0.0 [facility] Comment on above: Performed By: #### T ROPI, HCG, BMPX, CDP #### [facility] [employer] [address] [place] [address] Drums Teacher: Clark Segovia MD Platelet mean volume (Bld) [Entitic vol] 10.2 fL Normal 8.1-13.5 [facility] Comment on above: Performed By: #### T ROPI, HCG, BMPX, CDP #### [facility] [employer] [address] [place] [address] Drums Teacher: Clark Segovia MD Platelets (Bld) [#/Vol] 196 10*3/uL Normal 138-453 [facility] Comment on above: Performed By: #### T ROPI, HCG, BMPX, CDP #### [facility] [employer] [address] [place] [phone] Drums Teacher: Clark Segovia MD RBC (Bld) [#/Vol] 4.20 10*6/uL Normal 3.95-5.11 [facility] Comment on above: Performed By: #### T ROPI, HCG, BMPX, CDP #### [facility] [employer] [address] [place] [phone] Drums Teacher: Clark Segovia MD WBC (Bld) [#/Vol] 8.5 10*3/uL Normal 3.5-11.3 [facility] Comment on above: Performed By: #### T ROPI, HCG, BMPX, CDP #### [facility] [address] [place] [address] Drums Teacher: Clark Segovia MD CT CHEST PULMONARY EMBOLISM [...] Merle Griffith MD 05/03/21 Final result Normal [facility] No evidence of pulmo nary embolism or acute pulmonary abnormality. RECOMMENDATIONS: Unavailable [facility] RIS CONSOLIDATED EXAMINATION: CTA OF THE CHEST [...] No acute bone or soft tissue abnormality. [facility] Merle Belle MD - 05/03/2021 EXAMINATION: CTA OF THE [...] pulmonary embolism or acute pulmonary abnormality. RECOMMENDATIONS: [facility] Work Phone: Radiology Study observation (narrative) [employer] Phone: CT CHEST PULMONARY EMBOLISM W CONTRASTOrdered By: Merle Griffith on 05-03-2021 [employer] Phone: HCG Qualitative, Serumon hCG Qual Negative NEGATIVE [facility] Comment on above: Specimens with hCG l evels near the threshold of the test (25 mIU/mL) may give a negative or indeterminate result. In such cases, another test should be performed with a new specimen in 48-72 hours. If early is suspected clinically in this setting, correlation with quantitative serum b-hCG level is suggested. [employer] has confirmed the use of plasma for this test. This has not been cleared or approved by the U.S. Food and Drug Administration. The FDA has determined that such clearance is not necessary. [facility] HCG Screen, Bloodon 05-04-19 22 HCG Screen, Blood Negative Normal NEG [facility] Comment on above: Result Comment: Spec imens with hCG levels near the threshold of the test (25 mIU/mL) may give a negative or indeterminate result. In such cases, another test should be performed with a new specimen in 48-72 hours. If early is suspected clinically in this setting, correlation with quantitative serum b-hCG level is suggested. [employer] has confirmed the use of plasma for this test. This has not been cleared or approved by the U.S. Food and Drug Administration. The FDA has determined that such clearance is not necessary. Performed By: #### T NINI, HCG, BMPX, CDP #### [employer] [address] [place] [address] Drums Teacher: Clark Segovia MD No Panel Informationon 05-03 [facility] Troponinon 05-03-2021 Troponin, High Sens <6 Normal 0-14 [facility] Comment on above: Result Comment: High Sensitivity Troponin values cannot be compared with other Troponin methodologies. Patients with high levels of Biotin oral intake (i.e >5mg/day) may have falsely decreased Troponin levels. Samples collected within 8 hours of biotin intake may require additional information for diagnosis. Performed By: #### T NINI, HCG, BMPX, CDP #### [facility] [employer] [address] [place] [address] Drums Teacher: Clark Segovia MD Troponin, High Sensitivity <6 0 - 14 ng/L [facility] Comment on above: High Sensitivity Troponin values cannot be compared with other Troponin methodologies. Patients with high levels of Biotin oral intake (i.e >5mg/day) may have falsely decreased Troponin levels. Samples collected within 8 hours of biotin intake may require additional information for diagnosis. .eGFRon 02-06-2021 eGFR AA >60 Normal >=60 [facility] Comment on above: Order Comment: Order added by Discern rule Result Comment: See comment. Performed By: #### E GFR #### [facility] [address] [place] [address] eGFR Non-AA >60 Normal >=60 [facility] Comment on above: Order Comment: Order added [...] years Performed By: #### E GFR #### [facility] [address] [place] [address] CBCon 02-06-2021 Erythrocyte distribution width (RBC) [Ratio] 14.6 % Normal 11.6-14.8 [facility] Comment on above: Performed By: #### C BC #### [address] [address] Hematocrit (Bld) [Volume fraction] 36.6 % Normal 36.0-46.0 [facility] Comment on above: Performed By: #### C BC #### [address] [address] Hemoglobin (Bld) [Mass/Vol] 12.9 g/dL Normal 12.0-16.0 [facility] Comment on above: Performed By: #### C BC #### [address] [address] MCH (RBC) [Entitic mass] 32.3 pg Normal 27.0-35.0 [facility] Comment on above: Performed By: #### C BC #### [address] [address] MCHC 35.2 % Normal 31.0-37.0 [facility] Comment on above: Performed By: #### C BC #### [address] [address] MCV (RBC) [Entitic vol] 91.7 fL Normal 80.0-100.0 [facility] Comment on above: Performed By: #### C BC #### [address] [address] Platelet 168 x10*3/mcL Normal 150-350 [facility] Comment on above: Performed By: #### C BC #### [address] [address] Platelet mean volume (Bld) [Entitic vol] 8.2 fL Normal 6.7-10.6 [facility] Comment on above: Performed By: #### C BC #### [address] [address] RBC 3.99 x10*6/mcL Normal 3.80-5.20 [facility] Comment on above: Performed By: #### C BC #### [address] [address] WBC 5.6 x10*3/mcL Normal 4.5-11.0 [facility] Comment on above: Performed By: #### C BC #### [address] [address] CMPon 02-06-2021 Albumin [Mass/Vol] 3.4 g/dL Normal 3.2-4.9 [facility] Comment on above: Performed By: #### A LC #### [address] [address] Albumin/Globulin [Mass ratio] 1.1 {ratio} Normal 1.1-2.2 [facility] Comment on above: Performed By: #### A LC #### [address] [address] Alk Phos 68 IU/L Normal 32-91 [facility] Comment on above: Performed By: #### A LC #### [address] [address] ALT [Catalytic activity/Vol] 309 U/L High 14-54 [facility] Comment on above: Performed By: #### A LC #### [address] [address] Anion gap [Moles/Vol] 13 mmol/L Normal 7-17 [facility] Comment on above: Performed By: #### A LC #### [address] [address] AST [Catalytic activity/Vol] 392 U/L High 15-41 [facility] Comment on above: Performed By: #### A LC #### [address] [address] Bili Total 0.7 mg/dL Normal 0.3-1.2 [facility] Comment on above: Performed By: #### A LC #### [address] [address] Calcium [Mass/Vol] 8.2 mg/dL Low 8.5-10.3 [facility] Comment on above: Performed By: #### A LC #### [address] [address] Chloride [Moles/Vol] 107 mmol/L Normal 98-110 [place] Comment on above: Performed By: #### A LC #### [address] [address] CO2 [Moles/Vol] 24 mmol/L Normal 22-32 [facility] Comment on above: Performed By: #### A LC #### [address] [address] Creatinine [Mass/Vol] 0.58 mg/dL Normal 0.44-1.03 [facility] Comment on above: Performed By: #### A LC #### [address] [address] Glucose [Mass/Vol] 84 mg/dL Normal 70-99 [facility] Comment on above: Performed By: #### A LC #### [address] [address] Potassium [Moles/Vol] 3.9 mmol/L Normal 3.4-4.8 [facility] Comment on above: Performed By: #### A LC #### [address] [address] Protein [Mass/Vol] 6.4 g/dL Low 6.5-8.1 [facility] Comment on above: Performed By: #### A LC #### [address] [address] Sodium [Moles/Vol] 140 mmol/L Normal 133-142 [facility] Comment on above: Performed By: #### A LC #### [address] [address] Urea nitrogen [Mass/Vol] 13 mg/dL Normal 8-26 [facility] Comment on above: Performed By: #### A LC #### [address] [address] Urea nitrogen/Creatinine [Mass ratio] 22.4 mg/mg High 10.0-20.0 [facility] Comment on above: Performed By: #### A LC #### [address] [address] Ethanolon 02-06-2021 Ethanol, Plasma 124 mg/dL High <=9 [facility] Comment on above: Result Comment: To c onvert mg/dL to g/dL, divide result by 1,000. Legal limit of intoxication is 80 mg/dL (0.08 g/dL). Performed By: #### A LC #### [address] [address] Hep Func Panelon 02-06-2021 Albumin [Mass/Vol] 3.3 g/dL Normal 3.2-4.9 [facility] Comment on above: Performed By: #### C [id number] #### [address] [address] Alk Phos 68 IU/L Normal 32-91 [facility] Comment on above: Performed By: #### C [id number] #### [address] [address] ALT [Catalytic activity/Vol] 308 U/L High 14-54 [facility] Comment on above: Performed By: #### C [id number] #### [address] [address] AST [Catalytic activity/Vol] 404 U/L High 15-41 [facility] Comment on above: Performed By: #### C [id number] #### [address] [address] Bili Direct 0.1 mg/dL Normal 0.1-0.5 [facility] Comment on above: Performed By: #### C [id number] #### [address] [address] Bili Indirect 0.8 mg/dL Normal 0.0-1.0 [facility] Comment on above: Performed By: #### C [id number] #### [address] [address] Bili Total 0.9 mg/dL Normal 0.3-1.2 [facility] Comment on above: Performed By: #### C [id number] #### [address] [address] Protein [Mass/Vol] 6.3 g/dL Low 6.5-8.1 [facility] Comment on above: Performed By: #### C [id number] #### [address] [address] Hgb A1con 02-06-2021 Glucose [Mass/Vol] 117 mg/dL High 68-114 [facility] Comment on above: Result Comment: Math ematical Calc approx. The mean gluc equivalency of A1c Performed By: #### C [id number] #### [address] [address] Hgb A1c 5.7 % A1c High 4.0-5.6 [facility] Comment on above: Result Comment: Refe rence Range: 4.0 - 5.6 % Normal 5.7 - 6.4 % Pre-Diabetes > 6.5 % Diabetes Performed By: #### C [id number] #### [address] [address] Inpatient Clinical Summaryon 02-06-2021 Inpatient Clinical Summary [address] [address] Clinical Summary Person Information Name: Lyle Bailey Age: 31 Years : 1990 Sex: Female PCP: Marital Status: Single PCP: Race: White Ethnicity: Not or Language: Palestinian Visit Id: Visit Reason: Alcohol withdrawal Speciality: Acuity: Enc Type: Inpatient Med Service: Emergency Medicine Arrival: 02/05/2021 16:34:16 Discharge: Dispo Type: Admitted as Inpatient Address: [address] [facility] [address] Diagnosis: 1:Alcohol intoxication; 2:Alcohol dependence; 3:Schizo-affective type [...] range between ( 27.2 and 40.8 ) [place] Auto: 5.1 % -- Normal range between ( 3.7 and 11.9 ) Eos Auto: 0.6 % -- Normal range between ( 0.0 and 5.4 ) Basophil Auto: 0.4 % -- Normal range between ( 0.0 and 1.5 ) Baso Absolute: 0.0 x10 Lymph Absolute: 4.5 x10 [place] Absolute: 0.6 x10 Neutro Absolute: 6.1 x10 [...] Negative ng/ (more content not included)... Normal [facility] MRSA, PCRon 02-06-2021 Methicillin Resistant Staph aurus(MRSA) Negative Normal [facility] Comment on above: Result Comment: The [employer] Xpert MRSA Assay is a qualitative in [...] to the clinician. Performed By: #### A #### [address] [address] PTon 02-06-2021 INR Coag (PPP) [Relative time] 1.0 {INR} Normal <=3.5 [facility] Comment on above: Result Comment: INR has no normal range. INR Therapeutic range is: 2.0-3.0 (AF, CVA, TIAs, DVT prophylaxis, acute DVT) 2.5-3.5 (Mech heart valves, recurrent thrombosis/emboli) Performed By: #### C BC #### [address] [address] PT Coag (PPP) [Time] 10.5 s Normal 9.4-12.1 [place] Comment on above: Performed By: #### C BC #### [address] [address] PTTon 02-06-2021 aPTT Coag (Bld) [Time] 23.3 s Normal 20.2-27.0 [facility] Comment on above: Performed By: #### A #### [address] [address] Phosphoruson 02-06-2021 Phosphate [Mass/Vol] 3.2 mg/dL Normal 2.5-4.6 [place] Comment on above: Performed By: #### C [id number] #### [address] [address] Progress Note-Nurseon 2020 Progress Note-Nurse Dr. Arnold was at bedside explained potential symptoms and problems that may occur after leaving while going through [facility]. Patient states she is going to go to an outpatient program. Patient wants to be discharged. Electronically signed by _ LongMartha 02/06/21 15:10 EST Normal [facility] Progress Note-Nurse Patient asked about her gabapentin and stated she wants to go home. provider notified about her request. Electronically signed by _ LongMartha 02/06/21 14:30 EST Normal [facility] Progress Note-Nurse Patient still sleepy , will answer question. Electronically signed by _ LongMartha 02/06/21 09:09 EST Normal [facility] TSHon 02-06-2021 TSH Qn 2.49 m[IU]/L Normal 0.45-5.33 [facility] Comment on above: Result Comment: Refe rence Ranges for individuals from to 18 years of age were obtained from The [employer] Handbook (20 ed) published by [employer]. Reference Ranges for Females: Females, 1st Trimester 0.05 ? 3.7 uIU/mL Females, 2nd Trimester 0.31 ? 4.35 uIU/mL Females, 3rd Trimester 0.41 ? 5.18 uIU/mL Performed By: #### C [id number] #### [address] [address] Total T4on 02-06-2021 T4 [Mass/Vol] 5.7 ug/dL Normal 5.0-11.5 [facility] Comment on above: Performed By: #### C [id number] #### [address] [address] .Fentanyl Scrn wo Conf,Uron 02-05-2021 Ur Fentanyl Scrn Negative Normal NEG <1.0 [facility] Comment on above: Performed By: #### C BC #### [address] [address] Ur Fentanyl Scrn Qnt 0.15 ng/mL Normal <=0.99 [place] Comment on above: Performed By: #### C BC #### [address] [address] .eGFRon 02-05-2021 eGFR AA >60 Normal >=60 [facility] Comment on above: Result Comment: See comment. Performed By: #### A LC #### [address] [address] eGFR Non-AA >60 Normal >=60 [facility] Comment on above: Result Comment: Stag es [...] years Performed By: #### A LC #### [address] [address] Amylaseon 02-05-2021 Amylase [Catalytic activity/Vol] 121 U/L High 28-100 [facility] Comment on above: Performed By: #### A LC #### [address] [address] B12/Folate Lvlon 02-05-2021 Cobalamin (Vitamin B12) [Mass/Vol] 406 pg/mL Normal 180-914 [facility] Comment on above: Performed By: #### C [id number] #### [address] [address] Folate Lvl 10.5 ng/mL Normal >=5.9 [facility] Comment on above: Result Comment: A WH O Technical Consultation has determined that deficient Folate concentrations are considered to be less than 4 ng/mL. Performed By: #### C [id number] #### [address] [address] CBC w/ Diffon 02-05-2021 Erythrocyte distribution width (RBC) [Ratio] 14.3 % Normal 11.6-14.8 [facility] Comment on above: Performed By: #### C BC #### [address] [address] Hematocrit (Bld) [Volume fraction] 39.4 % Normal 36.0-46.0 [facility] Comment on above: Performed By: #### C BC #### [place] [id number] Hemoglobin (Bld) [Mass/Vol] 13.8 g/dL Normal 12.0-16.0 [facility] Comment on above: Performed By: #### C BC #### [address] [address] MCH (RBC) [Entitic mass] 31.9 pg Normal 27.0-35.0 [facility] Comment on above: Performed By: #### C BC #### [address] [address] MCHC 34.9 % Normal 31.0-37.0 [facility] Comment on above: Performed By: #### C BC #### [address] [address] MCV (RBC) [Entitic vol] 91.2 fL Normal 80.0-100.0 [facility] Comment on above: Performed By: #### C BC #### [address] [address] Platelet 199 x10*3/mcL Normal 150-350 [facility] Comment on above: Performed By: #### C BC #### [address] [address] Platelet mean volume (Bld) [Entitic vol] 8.2 fL Normal 6.7-10.6 [facility] Comment on above: Performed By: #### C BC #### [address] [address] RBC 4.32 x10*6/mcL Normal 3.80-5.20 [facility] Comment on above: Performed By: #### C BC #### [address] [address] WBC 11.2 x10*3/mcL High 4.5-11.0 [facility] Comment on above: Performed By: #### C BC #### [address] [address] CMPon 02-05-2021 Albumin [Mass/Vol] 4.1 g/dL Normal 3.2-4.9 [facility] Comment on above: Performed By: #### C [id number] #### [address] [address] Albumin/Globulin [Mass ratio] 1.1 {ratio} Normal 1.1-2.2 [facility] Comment on above: Performed By: #### C [id number] #### [address] [address] Alk Phos 79 IU/L Normal 32-91 [facility] Comment on above: Performed By: #### C [id number] #### [address] [address] ALT [Catalytic activity/Vol] 320 U/L High 14-54 [facility] Comment on above: Performed By: #### C [id number] #### [address] [address] Anion gap [Moles/Vol] 14 mmol/L Normal 7-17 [facility] Comment on above: Performed By: #### C [id number] #### [address] [address] AST [Catalytic activity/Vol] 431 U/L High 15-41 [facility] Comment on above: Performed By: #### C [id number] #### [address] [address] Bili Total 0.4 mg/dL Normal 0.3-1.2 [facility] Comment on above: Performed By: #### C [id number] #### [address] [address] Calcium [Mass/Vol] 9.5 mg/dL Normal 8.5-10.3 [facility] Comment on above: Performed By: #### C [id number] #### [address] [address] Chloride [Moles/Vol] 105 mmol/L Normal 98-110 [place] Comment on above: Performed By: #### C [id number] #### [address] [address] CO2 [Moles/Vol] 25 mmol/L Normal 22-32 [facility] Comment on above: Performed By: #### C [id number] #### [address] [address] Creatinine [Mass/Vol] 0.64 mg/dL Normal 0.44-1.03 [facility] Comment on above: Performed By: #### C [id number] #### [address] [address] Glucose [Mass/Vol] 103 mg/dL High 70-99 [facility] Comment on above: Performed By: #### C [id number] #### [address] [address] Potassium [Moles/Vol] 3.9 mmol/L Normal 3.4-4.8 [facility] Comment on above: Performed By: #### C [id number] #### [address] [address] Protein [Mass/Vol] 7.7 g/dL Normal 6.5-8.1 [facility] Comment on above: Performed By: #### C [id number] #### [address] [address] Sodium [Moles/Vol] 140 mmol/L Normal 133-142 [facility] Comment on above: Performed By: #### C [id number] #### [place] [id number] Urea nitrogen [Mass/Vol] 13 mg/dL Normal - [facility] Comment on above: Performed By: #### C [id number] #### [address] [address] Urea nitrogen/Creatinine [Mass ratio] 20.3 mg/mg High 10.0-20.0 [facility] Comment on above: Performed By: #### C [id number] #### [place] [id number] COV19 Rapidon 02-05-2021 Employed in healthcare? No Normal [facility] Comment on above: Performed By: #### A LC #### [address] [address] Group care resident? No Normal [place] Comment on above: Performed By: #### A LC #### [address] [address] In ICU? Yes [facility] Comment on above: Performed By: #### A LC #### [address] [address] status? Not [facility] Comment on above: Performed By: #### A LC #### [address] [address] Reason for Rapid Test Inpatient Normal [facility] Comment on above: Performed By: #### A LC #### [facility] [address] [place] [address] SARS-CoV-2 (COVID-19) RNA MOISES+probe Ql (Unsp spec) Negative Normal Negative [facility] Comment on above: Result Comment: The 2019 [...] using the ID NOW COVID-19 test by [employer], which has received Emergency Use Authorization (EUA) [...] following links: Fact Sheet for HealthCare Providers: https://www.fda.gov/media/151297/download Fact Sheet for Patients: https://www.fda.gov/media/826508/download Performed By: #### A LC #### [facility] [address] [place] [address] SARS-CoV-2 (COVID-19) RNA MOSIES+probe Ql (Unsp spec) No Normal [facility] Comment on above: Performed By: #### A LC #### [facility] [address] [place] [address] SARS-CoV-2 (COVID-19) RNA MOISES+probe Ql (Unsp spec) Unknown Normal [facility] Comment on above: Performed By: #### A LC #### [address] [address] Symptomatic as defined by [facility]? No Normal [facility] Comment on above: Performed By: #### A LC #### [address] [address] Diff Autoon 02-05-2021 Baso Absolute 0.0 x10*3/mcL Normal 0.0-0.2 [facility] Comment on above: Performed By: #### C BC #### [address] [address] Basophils/100 WBC (Bld) 0.4 % Normal 0.0-1.5 [facility] Comment on above: Performed By: #### C BC #### [address] [address] Eos Absolute 0.1 x10*3/mcL Normal 0.0-0.4 [facility] Comment on above: Performed By: #### C BC #### [address] [address] Eosinophils/100 WBC (Bld) 0.6 % Normal 0.0-5.4 [facility] Comment on above: Performed By: #### C BC #### [address] [address] Lymph Absolute 4.5 x10*3/mcL Normal 1.0-4.8 [facility] Comment on above: Performed By: #### C BC #### [address] [address] Lymphocytes/100 WBC (Bld) 39.7 % Normal 27.2-40.8 [facility] Comment on above: Performed By: #### C BC #### [address] [address] [place] Absolute 0.6 x10*3/mcL Normal 0.1-1.1 [facility] Comment on above: Performed By: #### C BC #### [address] [address] Monocytes/100 WBC (Bld) 5.1 % Normal 3.7-11.9 [facility] Comment on above: Performed By: #### C BC #### [facility] [address] [place] [address] Neutro Absolute 6.1 x10*3/mcL Normal 1.8-7.7 [facility] Comment on above: Performed By: #### C BC #### [facility] [address] [place] [address] Neutro Auto 54.2 % Normal 47.2-70.8 [facility] Comment on above: Performed By: #### C BC #### [place] [id number] [place] [address] ED Clinical Summaryon 2020 ED Clinical Summary (Inserted Image. Tracy ble to display) [place] [id number] ED Clinical Summary Person Information Name: Lyle Bailey Faye/[facility] Age: 31 Years : 1990 Sex: Female PCP: Marital Status: Single Race: White Ethnicity: Not or Language: Palestinian Visit Reason: Alcohol intoxication; Alcohol withdrawal Acuity: 3 Enc Type: Inpatient Med Service: Emergency Medicine Arrival: 02/05/2021 16:34:16 Discharge: LOS: 000 03:06 Checkin: 02/05/2021 16:34:16 Checkout: 02/05/2021 19:40:07 Dispo Type: Admitted as Inpatient Address: [address] [place] [address] Provider Notes: History of Present Illness Patient [...] information in this document, created by the emergency medical tech for me, accurately reflects the services I [...] range between ( 27.2 and 40.8 ) [place] Auto: 5.1 % -- Normal range between ( 3.7 and 11.9 ) Eos Auto: 0.6 % (more content not included)... Normal [facility] ED Note-Physicianon 02-06-20 ED Note-Physician Chief Complaint [...] information in this document, created by the emergency medical tech for me, accurately reflects the services I [...] patient?s conditi (more content not included)... Normal [facility] Ethanolon 02-05-2021 Ethanol, Plasma 509 mg/dL Critically abnormal <=9 [facility] Comment on above: Result Comment: Test completion time: 1746 Called date and time: 02/05/2021 17:47:12 EST Result called to and read back by: Michelle PATEL RN (First, Last, Title, Location) To convert mg/dL to g/dL, divide result by 1,000. Legal limit of intoxication is 80 mg/dL (0.08 g/dL). Performed By: #### A LC #### [address] [address] Lipaseon 02-05-2021 Lipase Lvl 118 IU/L High 22-51 [facility] Comment on above: Performed By: #### C [id number] #### [address] [address] Magnesiumon 02-05-2021 Magnesium [Mass/Vol] 2.2 mg/dL Normal 1.7-2.4 [place] Comment on above: Performed By: #### C [id number] #### [address] [address] PTon 02-05-2021 INR Coag (PPP) [Relative time] 0.9 {INR} Normal <=3.5 [facility] Comment on above: Result Comment: INR has no normal range. INR Therapeutic range is: 2.0-3.0 (AF, CVA, TIAs, DVT prophylaxis, acute DVT) 2.5-3.5 ([facility] heart valves, recurrent thrombosis/emboli) Performed By: #### A LC #### [address] [address] PT Coag (PPP) [Time] 10.0 s Normal 9.4-12.1 [place] Comment on above: Performed By: #### A LC #### [address] [address] PTTon 02-05-2021 aPTT Coag (Bld) [Time] 23.2 s Normal 20.2-27.0 [facility] Comment on above: Performed By: #### C [id number] #### [address] [address] UDS Compon 02-05-2021 Ur Amph Scrn Negative Normal NEG = <1000 [facility] Comment on above: Performed By: #### C [id number] #### [address] [address] Ur Janell Scrn Negative Normal NEG = <200 [facility] Comment on above: Performed By: #### C [id number] #### [address] [address] Ur Benzodia Scrn Negative Normal NEG = <200 [facility] Comment on above: Performed By: #### C [id number] #### [address] [address] Ur Cannab Scrn Negative Normal NEG = <50 [facility] Comment on above: Performed By: #### C [id number] #### [address] [address] Ur Cocaine Scrn Negative Normal NEG = <300 [facility] Comment on above: Performed By: #### C [id number] #### [address] [address] Ur Creatinine Tox Scrn <10.0 Normal [facility] Comment on above: Performed By: #### C [id number] #### [address] [place] [address] Ur Methadone Scn Negative Normal NEG = <300 [facility] Comment on above: Performed By: #### C [id number] #### [address] [place] [address] Ur Opiate Scrn Negative Normal NEG = <300 [facility] Comment on above: Performed By: #### C [id number] #### [facility] [address] [place] [address] [place] [address] Ur Oxy Screen Negative Normal NEG = <100 [facility] Comment on above: Performed By: #### C [id number] #### [address] [address] Ur Oxy Scrn Qnt 0 ng/mL Normal <=99 [facility] Comment on above: Performed By: #### C [id number] #### [address] [address] Ur PCP Scrn Negative Normal NEG = <25 [facility] Comment on above: Performed By: #### C [id number] #### [facility] [address] [place] [address] UA pH 5.0 Normal 4.5 - 7.8 [facility] Comment on above: Performed By: #### C [id number] #### [facility] [address] [place] [address] UA Spec Grav 1.003 Normal 1.003-1.035 [facility] Comment on above: Performed By: #### C [id number] #### [address] [address] HSV BY PCR QUAL SKIN/MUCOSA LESIONon 09-25-2020 HSV-1 SKIN/MUCOSA Not detected Normal Not Detected [facility] Comment on above: Performed By: #### C OV19 #### [facility] [address] [place] [id number] HSV-2 SKIN/MUCOSA Not detected Normal Not Detected [facility] Comment on above: Result Comment: The [...] Performed By: #### C OV19 #### [facility] [address] [place] [address] HSV BY PCR QUAL SKIN/MUCOSA LESIONon 09-24-2020 Lab Specimen Source Mucosa, Mouth Normal [facility] Comment on above: Performed By: #### C OV19 #### [facility] [address] [place] [address] HSV-1 SKIN/MUCOSA Canceled Normal [facility] Comment on above: Order Comment: TEST HSV BY PCR QUAL SKIN/MUCOSA LESION WAS CANCELLED, 09/24/2020 11:12 Performed By: #### H SVSS #### [facility] [address] [place] [address] HSV-2 SKIN/MUCOSA Canceled Normal [facility] Comment on above: Order Comment: TEST [...] detection. Performed By: #### H SVSS #### [facility] [address] [place] [address] GC + CHLAMYDIA BY AMPLIFIED DETECTIONon 09-23-2020 CHLAMYDIA TRACH.,AMPLIFIED Negative Normal Negative [facility] Comment on above: Result Comment: The APTIMA Combo 2 assay is FDA-approved for Chlamydia trachomatis and Neisseria gonorrhoeae testing on female endocervical and vaginal swabs, ThinPrep liquid pap samples, male urine samples and urethral swabs. Performance characteristics for Chlamydia trachomatis and Neisseria gonorrhoeae testing on specific yyq-RUP-xadqpdfh sample types (female urine samples) have been validated by [facility]. This laboratory is certified by CLIA to perform high complexity testing. Samples from all other sites are not validated for this method. Performed By: #### [facility] #### [facility] [address] [place] [address] N.GONORRHEA,AMPLIFIED Negative Normal Negative [facility] Comment on above: Result Comment: The APTIMA Combo 2 assay is FDA-approved for Chlamydia trachomatis and Neisseria gonorrhoeae testing on female endocervical and vaginal swabs, ThinPrep liquid pap samples, male urine samples and urethral swabs. Performance characteristics for Chlamydia trachomatis and Neisseria gonorrhoeae testing on specific zxy-YUO-eddyrmhb sample types (female urine samples) have been validated by [facility]. This laboratory is certified by CLIA to perform high complexity testing. Samples from all other sites are not validated for this method. Performed By: #### [facility] #### [facility] [address] [place] [address] GC + CHLAMYDIA BY AMPLIFIED DETECTIONon 09-22-2020 Lab Specimen Source Throat Normal [facility] Comment on above: Performed By: #### [facility] #### [facility] [address] [place] [address] HSV BY PCR QUAL SKIN/MUCOSA LESIONon 09-22-2020 Lab Specimen Source Mucosa, Mouth Normal [facility] Comment on above: Order Comment: TEST HSV BY PCR QUAL SKIN/MUCOSA LESION WAS CANCELLED, 09/24/2020 11:12 Performed By: #### H [facility] #### [facility] [address] [place] [address] Provider Note - ED v3on 09-11 Provider [...] YEAR Additional Notes:03/2019 Description:TOOTH EXTRACTION Social/Behavioral Description:depression BOOTH CLEANER: Is : no Is : no REVIEW [...] SIGNS: T PRBP SpO2O2(LPM) %FiO2 Method 22-Sep-2020 17:10:[id number]/99 97 MDM MDM/ED COURSE: Rx for nystatin swish and swallow. Swab of mouth and lesion obtained for gonorrhea, chlamydia, HSV. Patient's clinical presentation is otherwise unremarkable at this time. Patient is discharged with instructions to follow-up with primary care or seek emergency medical attention for worsening symptoms or any new concerns. DISPOSITION Diagnosis/Annotation: ED Dx Name:jose Alejandre Code:B37.0 Disposition: discharged Type: home CONSULT CRITICAL CARE TIME Is this a critically ill patient: no Electronic Signatures for Addendum Section: Leann Hall ([facility]) (Signed Addendum 27-Sep-2020 10:06) Spoke with patient and advised her of -HSV1 and -HSV2 test results. Pt verbalized understanding. Electronic Signatures: Chilo Glover ([facility]) (Signed 23-Sep-2020 09:16) Authored: ED Notes, HPI, PMH, ROS, PE, Results/Vital Signs, MDM/ED Course, Clinical Impression, Attestation, Chart Review, Scores Leann Hall ([facility]) (Signature Pending) Authored: Chart Review, Scores Last Updated: 27-Sep-2020 10:06 by Leann Hall ([facility]) Normal [facility] *VAGINITIS DNA PROBEon 09-05 *VAGINITIS DNA PROBE Clinical Report: (D ) Specimen: GENITAL Collected: 09/05/2020 15:45 Status: Final Last Updated: 09/06/2020 09:20 MELVIN (Final) Negative AFTAB (Final) Positive TRICH (Final) Negative Normal [facility] Comment on above: Performed By: #### 3 0741 #### [facility] [address] [facility] [place] [address], [facility] CHLAMYDIA/GONORRHEA BY TMAon 09-05-2020 CHLAMYDIA BY TMA Negative Normal NEGATIVE [facility] Comment on above: Result Comment: No C hlamydia trachomatis rRNA Detected. Performed By: #### 3 1627 #### [facility] [address] [place] [address], [facility] GONORRHEA BY TMA Negative Normal NEGATIVE [facility] Comment on above: Result Comment: No Neisseria gonorrhoeae rRNA Detected. The Aptima Combo 2 Assay is a FDA approved target amplification nucleic acid probe test that utilizes target capture for the in vitro qualitative detection and differentiation of ribosomal RNA (rRNA) from Chlamydia trachomatis (CT) and/or Neisseria gonorrhoeae (GC) to aid the diagnosis of chlamydial and/or gonococcal urogenital disease using the [place] System. The Aptima Combo2 Assay involves: target capture; target amplification by Auricular Detoxification Specialist-Mediated Amplification (TMA); and detection of the amplification products (amplicon) by the Hybridization Protection Assay (HPA). The internal process controls of the [place] System monitor the target capture, amplification, and detection steps of the assay, this is NOT intended to control for sampling adequacy. Performed By: #### 3 1627 #### [facility] [address] HPV HIGH RISK BY TMAon 09-05 HPV DEFAULT Please refer to the Despatching And Receiving Clerk Cytology (Pap test) report for HPV test results. Normal [facility] Comment on above: Order Comment: [id number] Performed By: #### 3 1633 #### [facility] [address] [facility] Office Visit (Internal Medic ine)on 06-02-2020 [...] depression; LISA = N; Verified Transmission to [facility] 0748; Last Updated By: Paco [employer]; 06/02/2020 8:33:07 AM Generalized anxiety disorder with panic attacks Renew: busPIRone HCl - 10 MG Oral Tablet; TAKE 1-2 TABLETS 3 times daily PRN Rx By: Nini Wolf; Dispense: 30 Days ; #:180 Tablet; Refill: 0;For: Generalized anxiety disorder with panic attacks; LISA = N; Verified Transmission to [facility] 1448; Last Updated By: [employer]; 06/02/2020 8:33:11 AM Nausea in adult Start: Ondansetron 4 MG Oral Tablet Disintegrating; TAKE 1 TABLET 3 times daily PRN nausea Rx By: Nini Wolf; Dispense: 0 Days ; #:30 Tablet; Refill: 0;For: Nausea in adult; LISA = N; Verified Transmission to [facility] 1448; Last Updated By: [employer]; 06/02/2020 8:39:25 AM Restless legs syndrome Start: rOPINIRole HCl - 0.5 MG Oral Tablet; TAKE 1 TABLET Bedtime Rx By: Nini Wolf; Dispense: 30 Days ; #:30 Tablet; Refill: 0;For: Restless legs syndrome; LISA = N; Verified Transmission to [facility] 1448; Last Updated By: [employer]click; 06/02/2020 8:38:03 AM Patient Discussion/Summary F/U 2 [...] TIME. DO TO TECHNICAL DIFFICULTIES WITH THE [employer], THIS VIRTUAL VISIT WAS FINISHED VIA [...] DUE TO COVID-19 (CORONAVIRUS) Presents today for [employer] F/U. SHE WAS SEEN ON 05/25/20 FOR AN INTENTIONAL DRUG OVER DOSE. SHE WAS DRINKING ALCOHOL AND TOOK 60 400 MG GABAPENTIN. SHE WAS TRANSFERRED TO IN PATIENT FACILITY. SHE WAS RECENTLY IN [facility] ON 05/09/20. modifying factors consists of SHE IS SEEING [facility] COUNSELL[facility] BUT UNABLE TO SEE A PROVIDER [...] weight loss (more content not included)... Normal [facility] Office Visit (Internal Medic ine)on 05-17-2020 Follow-up [...] attacks; LISA = N; Verified Transmission to [facility] 3292; Last Updated By: System, SourceNinja; 05/17/2020 1:30:14 PM Patient Discussion/Summary F/U BEFORE [...] DUE TO COVID-19 (CORONAVIRUS) Presents today for [facility] F/U. SHE WAS SEEN AT THE [facility] IN [place], [place] ON 05/09/20 FOR SUICIDAL IDEATION AND WAS KEPT OVER NIGHT FOR OBSERVATION. SHE WAS STILL SUICIDAL WITH A PLAN TO TAKE A BOTTLE OF PILLS ON 05/10/20 SO SHE WAS TRANSFERRED TO [facility] FOR AN IN PATIENT STAY FROM 05/10/20 - 05/14/20. SEVERAL MED CHANGES APPLIED, INCLUDING HER GABAPENTIN WHICH WAS CHANGED FROM 400 MG QID, TO 600 MG TID. SHE WAS SEEING NEL CRUZ, PROCESS DEVELOPMENT TECHNICIAN OUT OF [facility]. SHE LAST SEEN HER ON 04/14/20, BUT SHE DOES NOT WANT TO RETURN TO HER. SHE STATES THEY DO NOT GET ALONG . SHE IS SEEING [facility] COUNSELING AND WILL BE ABLE TO SHE [...] in sk (more content not included)... Normal [facility] CORONAVIRUS 2019 BY PCRon SARS-CoV-2 (COVID-19) RNA MOISES+probe Ql (Unsp spec) Not detected Normal Not Detected [facility] Comment on above: Result Comment: . [...] patient management decisions. Fact sheet for providers: https://www.fda.gov/media/182927/download Fact sheet for patients: https://www.fda.gov/media/092283/download This test has received FDA Emergency Use Authorization (EUA) and has been verified by [facility] ([facility]). This test is only authorized for the duration of time that circumstances exist to justify the authorization of the emergency use of in vitro diagnostic tests for the detection of SARS-CoV-2 virus and/or diagnosis of COVID-19 infection under section 564(b)(1) of the Act, 21 U.S.C. 360bbb-3(b)(1), unless the authorization is terminated or revoked sooner. [facility] is certified under CLIA-88 as qualified to perform high complexity testing. Testing is performed in the [facility] laboratories located at [address] [place] [address]. Performed By: #### C OV19 #### [address] [place] [address] Covid 19 Resultson SARS-CoV-2 (COVID-19) RNA MOISES+probe [...] by the [facility] to see if any of your [...] or Naproxen (Aleve) can also be used. Idht-hpf-dcxbecs cough and cold medicines can be used according to the instructions on the package. Some fkxj-tez-fwinbtf medicines also contain acetaminophen. Make sure you [...] water are not available, use alcohol-based hand computer drafter. Avoid touching your eyes, nose, and mouth [...] like ibuprofen (Motrin) (more content not included)... [facility] CORONAVIRUS 2019 BY PCRon DATE OF SYMPTOM ONSET [YYYYMMDD]? [id number] [facility] Comment on above: Performed By: #### C OV19 #### [facility] [address] [place] [address] Lab Specimen Source Nasal, Nasopharyngeal [facility] Comment on above: Performed By: #### C OV19 #### [facility] [address] [place] [address] Provider Note - ED v2on 03-15 Provider [...] YEAR Additional Notes:03/2019 Description:TOOTH EXTRACTION Social/Behavioral Description:depression BOOTH CLEANER: Is : no Is : no Order [...] SIGNS: T PRBP SpO2O2(LPM) %FiO2 Method 04-Apr-2020 12:27:[id number]/88 97 PHYSICAL EXAM CONSTITUTIONAL: Appearance: well appearing [...] this a (more content not included)... Normal [facility] Provider Note - ED v2on Provider Note [...] was given a couple of days of [place] and ibuprofen 600, she was also given a prescription for amoxicillin. She states she is out of the [place], and has been taking ibuprofen regularly and [...] YEAR Additional Notes:03/2019 Description:TOOTH EXTRACTION Social/Behavioral Description:depression BOOTH CLEANER: Is : no Is : no REVIEW [...] SIGNS: T PRBP SpO2O2(LPM) %FiO2 Method 22-Mar-2020 13:54:00-36.616670/79 99 PHYSICAL EXAM CONSTITUTIONAL: Appearance: well appearing [...] Electronic S (more content not included)... Normal [facility] Office Visit (Internal Medic ine)on 03-15-2020 Follow-up visit Diagnoses/Problems Assessed Bipolar depression (296.50) (F31.9) Generalized anxiety disorder with panic attacks (300.02,300.01) (F41.1,F41.0) Orders Bipolar depression Start: ARIPiprazole 10 MG Oral Tablet (Abilify); TAKE 1 TABLET DAILY Rx By: Nini Wolf; Dispense: 90 Days ; #:90 Tablet; Refill: 0;For: Bipolar depression; LISA = N; [facility]; Last Updated By: Riskclick; 03/15/2020 8:37:14 AM Start: LORazepam 0.5 MG Oral Tablet; TAKE 1 TABLET Twice daily PRN anxiety Rx By: Nini Wolf; Dispense: 30 Days ; #:60 Tablet; Refill: 0;For: Bipolar depression; LISA = N; Verified Transmission to [facility] 1448; Msg to Pharmacy: [facility] REVIEWED. VOID SCRIPT 30 DAYS AFTER WRITTEN DATE; Last Updated By: Riskclick; 03/15/2020 8:37:12 AM Patient Discussion/Summary F/U BEFORE FAX 2 WORK EXCUSE/LETTER TO [phone] Provider Impressions SHE IS REQUESTING A LETTER [...] TO COVID-19 (CORONAVIRUS) Presents today for F/U [facility] ER VISIT ON 03/11/20 AND [facility] ER ON 03/13/20 BOTH FOR PANIC ATTACK. SHE IS C/O INCREASED ANXIETY X 2 WEEKS modifying factors consists of SHE HAS AN APPT WITH PALMIRA CRUZ NP ON 03/31/20. SHE STOPPED HER [...] skin lumps. (more content not included)... Normal [facility] ACUTE TOXICOLOGY PANEL, BLOO Don 03-14-2020 Acetaminophen [Mass/Vol] ug/mL Normal 10.0 - 30.0 [facility] Comment on above: Performed By: #### D RUBL #### [address] [address] Ethanol [Mass/Vol] 214 mg/dL Abnormal [facility] Comment on above: Result Comment: FOR MEDICAL USE ONLY. . REF VALUES <10 Performed By: #### D RUBL #### [address] [address] SALICYLATE <3 Normal 4 - 20 [facility] Comment on above: Performed By: #### D RUBL #### [address] [address] Acetaminophen [Mass/Vol] <10.0 See Below [facility] Internal Medicine Work Phone: Comment on above: Reference Range: 10. 0 - 30.0 Ordering Provider: Briseida WILKERSONCUCO [place] [address] Ethanol [Mass/Vol] 214 mg/dL Abnormal [facility] Work Phone: Comment on above: FOR MEDICAL USE ONLY . .REF VALUES <10 Ordering Provider: Briseida GONZALEZ [address] Salicylates [Mass/Vol] mg/dL 4 - 20 [facility] Work Phone: Comment on above: Ordering Provider: Briseida GONZALEZ [address] ALCOHOLon 03-14-2020 Ethanol [Mass/Vol] 93 mg/dL Abnormal [facility] Comment on above: Result Comment: FOR MEDICAL USE ONLY. . REF VALUES <10 Performed By: #### C OV19 #### [facility] [address] [place] [address] Alcohol, Serumon 03-14-2020 Ethanol [Mass/Vol] 93 mg/dL Abnormal [facility] Work Phone: Comment on above: FOR MEDICAL USE ONLY . .REF VALUES <10 Ordering Provider: Briseida GONZALEZ 889[address] BASIC METABOLIC PANELon Anion gap [Moles/Vol] 15 mmol/L Normal 10 - 20 [facility] Comment on above: Performed By: #### B MP #### [address] [address] Calcium [Mass/Vol] 9.3 mg/dL Normal 8.6 - 10.3 [facility] Comment on above: Performed By: #### B MP #### [address] [address] Chloride [Moles/Vol] 108 mmol/L High 98 - 107 [facility] Comment on above: Performed By: #### B MP #### [address] [address] Creatinine [Mass/Vol] 0.56 mg/dL Normal 0.50 - 1.05 [facility] Comment on above: Performed By: #### B MP #### [address] [address] GFR- AM. >60 Normal >60 [facility] Comment on above: Result Comment: CALC ULATIONS OF ESTIMATED GFR ARE PERFORMED USING THE MDRD STUDY EQUATION FOR THE IDMS-TRACEABLE CREATININE METHODS. CLIN CHEM 2007;53:766-72 Performed By: #### B MP #### [address] [address] GFR-NON AM. >60 Normal >60 [facility] Comment on above: Performed By: #### B MP #### [address] [address] Glucose [Mass/Vol] 111 mg/dL High 74 - 99 [facility] Comment on above: Performed By: #### B MP #### [address] [address] HCO3 (Bld) [Moles/Vol] 21 mmol/L Normal 21 - 32 [facility] Comment on above: Performed By: #### B MP #### [address] [address] Potassium [Moles/Vol] 3.9 mmol/L Normal 3.5 - 5.3 [facility] Comment on above: Performed By: #### B MP #### [address] [address] Sodium [Moles/Vol] 140 mmol/L Normal 136 - 145 [facility] Comment on above: Performed By: #### B MP #### [address] [address] Urea nitrogen [Mass/Vol] 5 mg/dL Low 6 - 23 [facility] Comment on above: Performed By: #### B MP #### [address] [address] CBC AND DIFFERENTIALon 03-14 Basophils (Bld) [#/Vol] 0.10 10*3/uL Normal 0.00 - 0.10 [facility] Comment on above: Performed By: #### C BCDF #### [address] [address] Eosinophils (Bld) [#/Vol] 0.10 10*3/uL Normal 0.00 - 0.70 [facility] Comment on above: Performed By: #### C BCDF #### [address] [address] Lymphocytes (Bld) [#/Vol] 2.80 10*3/uL Normal 1.20 - 4.80 [facility] Comment on above: Performed By: #### C BCDF #### [address] [address] Monocytes (Bld) [#/Vol] 0.50 10*3/uL Normal 0.10 - 1.00 [facility] Comment on above: Performed By: #### C BCDF #### [address] [address] Neutrophils (Bld) [#/Vol] 6.30 10*3/uL Normal 1.20 - 7.70 [facility] Comment on above: Result Comment: Perc ent differential counts (%) should be interpreted in the context of the absolute cell counts (cells/L). Performed By: #### C BCDF #### [address] [address] NUCLEATED RBC 0.2 /100 WBC Normal [facility] Comment on above: Performed By: #### C BCDF #### [address] [address] Platelets (Bld) [#/Vol] 241 10*3/uL Normal 150 - 450 [facility] Comment on above: Performed By: #### C BCDF #### [address] [address] RBC 5.23 x10E12/L High 4.00 - 5.20 [facility] Comment on above: Performed By: #### C BCDF #### [address] [address] WBC (Bld) [#/Vol] 9.6 10*3/uL Normal 4.4 - 11.3 [facility] Comment on above: Performed By: #### C BCDF #### [address] [address] Complete Blood Count + Cyn bledsoe 03-14-2020 Basophils (Bld) [#/Vol] 0.10 {x10E9/L} See Below [facility] Work Phone: Comment on above: Reference Range: 0.0 0 - 0.10 Ordering Provider: Briseida WILKERSONCUCO GONZALEZ [address] Basophils/100 WBC (Bld) 0.6 % Normal 0.0 - 2.0 [facility] Internal [facility] Work Phone: Comment on above: Ordering Provider: Briseida WILKERSONCUCO LUISJUSTICEO [address] Performed By: #### C BCDF #### [address] [address] Eosinophils (Bld) [#/Vol] 0.10 {x10E9/L} See Below [facility] Work Phone: Comment on above: Reference Range: 0.0 0 - 0.70 Ordering Provider: Briseida WILKERSONCUCO GONZALEZ [address] Eosinophils/100 WBC (Bld) 0.6 % Normal 0.0 - 6.0 [facility] Work Phone: Comment on above: Ordering Provider: Briseida SMITHJUSTICEO [address] Performed By: #### C BCDF #### [address] [address] Erythrocyte distribution width (RBC) [Ratio] 13.1 % Normal 11.5 - 14.5 [facility] Work Phone: Comment on above: Reference Range: 11. 5 - 14.5 Ordering Provider: Briseida VANHIO [address] Performed By: #### C BCDF #### [address] [address] Hematocrit (Bld) [Volume fraction] 48.3 % High 36.0 - 46.0 [facility] Work Phone: Comment on above: Reference Range: 36. 0 - 46.0 Ordering Provider: Briseida VANHIO [address] Performed By: #### C BCDF #### [address] [address] Hemoglobin (Bld) [Mass/Vol] 16.2 g/dL High 12.0 - 16.0 [facility] Work Phone: Comment on above: Reference Range: 12. 0 - 16.0 Ordering Provider: Briseida GONZALEZ [address] Performed By: #### C BCDF #### [address] [address] Lymphocytes (Bld) [#/Vol] 2.80 {x10E9/L} See Below [facility] Work Phone: Comment on above: Reference Range: 1.2 0 - 4.80 Ordering Provider: Briseida MARROQUINMadeleine [address] Lymphocytes/100 WBC (Bld) 28.6 % Normal 13.0 - 44.0 [facility] Work Phone: Comment on above: Reference Range: 13. 0 - 44.0 Ordering Provider: Briseida GONZALEZ [address]7723 Performed By: #### C BCDF #### [address] [address] MCHC (RBC) [Mass/Vol] 33.6 g/dL Normal 32.0 - 36.0 [facility] Internal [facility] Work Phone: Comment on above: Reference Range: 32. 0 - 36.0 Ordering Provider: Briseida GONZALEZ [address]18[address] Performed By: #### C BCDF #### [address] [address] MCV (RBC) [Entitic vol] 92 fL Normal 80 - 100 [facility] Work Phone: Comment on above: Ordering Provider: Briseida GONZALEZ 284[address] Performed By: #### C BCDF #### [address] [address] Monocytes (Bld) [#/Vol] 0.50 {x10E9/L} See Below [facility] Work Phone: Comment on above: Reference Range: 0.1 0 - 1.00 Ordering Provider: Briseida GONZALEZ 21[address] Monocytes/100 WBC (Bld) 5.0 % Normal 2.0 - 10.0 [facility] Work Phone: Comment on above: Ordering Provider: Briseida GONZALEZ [address]12[address] Performed By: #### C BCDF #### [address] [address] Neutrophils (Bld) [#/Vol] 6.30 {x10E9/L} See Below [facility] Work Phone: Comment on above: Reference Range: 1.2 0 - 7.70 Percent differential counts (%) should be interpreted in the context of the absolute cell counts (cells/L). Ordering Provider: Briseida GONZALEZ [address] Neutrophils/100 WBC (Bld) 65.2 % Normal 40.0 - 80.0 [facility] Work Phone: Comment on above: Reference Range: 40. 0 - 80.0 Ordering Provider: Briseida GONZALEZ [address]9224 Performed By: #### C BCDF #### [address] [address] Platelets (Bld) [#/Vol] 241 {x10E9/L} 150 - 450 [facility] Work Phone: Comment on above: Ordering Provider: Briseida GONZALEZ 91391 RBC (Bld) [#/Vol] 5.23 {x10E12/L} above high threshold See Below [facility] Work Phone: Comment on above: Reference Range: 4.0 0 - 5.20 Ordering Provider: Briseida GONZALEZ [address] WBC (Bld) [#/Vol] 0.2 {/100_WBC} [facility] Work Phone: Comment on above: Ordering Provider: Briseida GONZALEZ [address] WBC (Bld) [#/Vol] 9.6 {x10E9/L} 4.4 - 11.3 [facility] [place] [facility] Work Phone: Comment on above: Ordering Provider: Briseida GONZALEZ [address] HEPATIC FUNCTION PANELon Albumin [Mass/Vol] 4.2 g/dL Normal 3.4 - 5.0 [facility] Comment on above: Performed By: #### H EPFP #### [address] [address] ALP [Catalytic activity/Vol] 83 U/L Normal 33 - 110 [facility] Comment on above: Performed By: #### H EPFP #### [address] [address] ALT [Catalytic activity/Vol] 69 U/L High 7 - 45 [facility] Comment on above: Result Comment: Tran ents treated with Sulfasalazine may generate falsely decreased results for ALT. Performed By: #### H EPFP #### [address] [address] AST [Catalytic activity/Vol] 70 U/L High 9 - 39 [facility] Comment on above: Performed By: #### H EPFP #### [address] [address] Bilirubin [Mass/Vol] 0.4 mg/dL Normal 0.0 - 1.2 [facility] Comment on above: Performed By: #### H EPFP #### [address] [address] Bilirubin.indirect [Mass/Vol] 0.1 mg/dL Normal 0.0 - 0.3 [facility] Comment on above: Performed By: #### H EPFP #### [address] [address] Protein [Mass/Vol] 7.1 g/dL Normal 6.4 - 8.2 [facility] Comment on above: Performed By: #### H EPFP #### [address] [address] Hepatic Function Panelon Albumin BCP dye [Mass/Vol] 4.2 g/dL 3.4 - 5.0 [facility] [place] [facility] Work Phone: Comment on above: Ordering Provider: Briseida GONZALEZ [address] ALP [Catalytic activity/Vol] 83 U/L 33 - 110 [facility] Work Phone: Comment on above: Ordering Provider: Briseida GONZALEZ [address] ALT With P-5'-P [Catalytic activity/Vol] 69 U/L above high threshold 7 - 45 [facility] Work Phone: Comment on above: Patients treated wit h Sulfasalazine may generate falsely decreased results for ALT. Ordering Provider: Briseida GONZALEZ 86776 AST With P-5'-P [Catalytic activity/Vol] 70 U/L above high threshold 9 - 39 [facility] Work Phone: Comment on above: Ordering Provider: Briseida GONZALEZ [address]38[address] Bilirubin [Mass/Vol] 0.4 mg/dL 0.0 - 1.2 [facility] Work Phone: Comment on above: Ordering Provider: Briseida GONZALEZ [address] Bilirubin.direct [Mass/Vol] 0.1 mg/dL 0.0 - 0.3 [facility] Work Phone: Comment on above: Ordering Provider: Briseida GONZALEZ [address] Protein [Mass/Vol] 7.1 g/dL 6.4 - 8.2 [facility] Work Phone: Comment on above: Ordering Provider: Briseida GONZALEZ [address] Metabolic Panelon 03-14-2020 Anion gap [Moles/Vol] 15 mmol/L 10 - 20 [facility] Work Phone: Comment on above: Ordering Provider: Briseida GONZALEZ [address] Calcium [Mass/Vol] 9.3 mg/dL 8.6 - 10.3 [facility] Work Phone: Comment on above: Ordering Provider: Briseida GONZALEZ [address] Chloride [Moles/Vol] 108 mmol/L above high threshold 98 - 107 [facility] Work Phone: Comment on above: Ordering Provider: Briseida Dugan CO2 [Moles/Vol] 21 mmol/L 21 - 32 [facility] Work Phone: Comment on above: Ordering Provider: Briseida Dugan Creatinine [Mass/Vol] 0.56 mg/dL See Below [facility] Work Phone: Comment on above: Reference Range: 0.5 0 - 1.05 Ordering Provider: Briseida Dugan Glucose [Mass/Vol] 111 mg/dL above high threshold 74 - 99 [facility] Work Phone: Comment on above: Ordering Provider: Briseida Dugan Potassium [Moles/Vol] 3.9 mmol/L 3.5 - 5.3 [facility] Work Phone: Comment on above: Ordering Provider: Briseida Dugan Sodium [Moles/Vol] 140 mmol/L 136 - 145 [facility] Work Phone: Comment on above: Ordering Provider: Briseida Dugan Urea nitrogen [Mass/Vol] 5 mg/dL below low threshold 6 - 23 [facility] Work Phone: Comment on above: Ordering Provider: Briseida Dugan Otheron 03-14-2020 >60 >60 [facility] Work Phone: Comment on above: CALCULATIONS OF JEREL MATED GFR ARE PERFORMED USING THE MDRD STUDY EQUATION FOR THE IDMS-TRACEABLE CREATININE METHODS. CLIN CHEM 2007;53:766-72 Ordering Provider: Briseida Dugan DRUG SCREEN,URINEon 03-13-19 21 AMPHETAMINE SCREEN,U Negative Normal NEGATIVE [facility] Comment on above: Result Comment: CUTO FF LEVEL: 500 NG/ML Cross-reactivity has been reported with high concentrations of the following drugs: buproprion, chloroquine, chlorpromazine, ephedrine, mephentermine, fenfluramine, phentermine, phenylpropanolamine, pseudoephedrine, and propranolol. Performed By: #### D RUG3 #### [place] [address] BARBITURATES SCREEN,U Negative Normal NEGATIVE [facility] Comment on above: Result Comment: CUTO FF LEVEL: 200 NG/ML Performed By: #### D RUG3 #### [place] [address] BENZODIAZEPINES SCREEN,U Negative Normal NEGATIVE [facility] Comment on above: Result Comment: CUTO FF LEVEL: 200 NG/ML Performed By: #### D RUG3 #### [place] [address] CANNABINOIDS SCREEN,U Negative Normal NEGATIVE [facility] Comment on above: Result Comment: CUTO FF LEVEL: 50 NG/ML Performed By: #### D RUG3 #### [place] [address] COCAINE METABOLITE SCREEN,U Negative Normal NEGATIVE [facility] Comment on above: Result Comment: CUTO FF LEVEL: 150 NG/ML Performed By: #### D RUG3 #### [place] [address] DRUG SCREEN COMMENT SEE BELOW Normal [facility] Comment on above: Result Comment: Drug screen results are presumptive and should not be used to assess compliance with prescribed medication. Contact the performing [facility] [[email or web address]] laboratory to add-on definitive confirmatory testing if [...] directors. Performed By: #### D RUG3 #### [place] [address] FENTANYL SCREEN,URINE Negative Normal NEGATIVE [facility] Comment on above: Result Comment: CUTO FF LEVEL: 1 NG/ML The performance characteristics of this test have been determined by the individual laboratory site where testing is performed. This test has not been cleared or approved by the FDA; however, the FDA has determined that such clearance is not necessary. Performed By: #### D RUG3 #### [place] [address] METHADONE SCREEN,U Negative Normal NEGATIVE [facility] Comment on above: Result Comment: CUTO FF LEVEL: 150 NG/ML The metabolite U-eosxb-vlyaxujtiakgjm (LAAM) is not detected by this method in concentrations that would be found in the urine of patients on LAAM therapy. Performed By: #### D RUG3 #### [place] [address] OPIATES SCREEN,U Negative Normal NEGATIVE [facility] Comment on above: Result Comment: CUTO FF LEVEL: 300 NG/ML The opiate screen does not detect fentanyl, meperidine, or tramadol. Oxycodone is not consistently detected (refer to Oxycodone Screen, Urine result). Performed By: #### D RUG3 #### [place] [address] OXYCODONE SCREEN,U Negative Normal NEGATIVE [facility] Comment on above: Result Comment: CUTO FF LEVEL: 100 NG/ML This test will accurately detect both oxycodone and oxymorphone. Performed By: #### D RUG3 #### [place] [address] PCP SCREEN,U Negative Normal NEGATIVE [facility] Comment on above: Result Comment: CUTO FF LEVEL: 25 NG/ML Cross-reactivity has been reported with dextromethorphan. Performed By: #### D RUG3 #### [place] [id number] HCG,URINEon 03-13-2020 Beta HCG ( test) Ql (U) Negative Normal Negative [facility] Comment on above: Performed By: #### H CGU #### [place] [id number] Otheron 03-13-2020 Amphetamines Screen Ql (U) Negative NEGATIVE [facility] Work Phone: Comment on above: CUTOFF LEVEL: 500 NG /ML Cross-reactivity has been reported with high concentrations of the following drugs: buproprion, chloroquine, chlorpromazine, ephedrine, mephentermine, fenfluramine, phentermine, phenylpropanolamine, pseudoephedrine, and propranolol. Ordering Provider: Briseida GONZALEZ [address] Benzoylecgonine Screen Ql (U) Negative NEGATIVE [facility] Work Phone: Comment on above: CUTOFF LEVEL: 150 NG /ML Ordering Provider: Briseida GONZALEZ [address] Methadone Screen Ql (U) Negative NEGATIVE [facility] Work Phone: Comment on above: CUTOFF LEVEL: 150 NG /ML The metabolite F-ivsib-belmigmgxxlplu (LAAM) is not detected by this method in concentrations that would be found in the urine of patients on LAAM therapy. Ordering Provider: Briseida Gonzalez202 Opiates Screen Ql (U) Negative NEGATIVE [facility] Work Phone: Comment on above: CUTOFF LEVEL: 300 NG /ML The opiate screen does not detect fentanyl, meperidine, or tramadol. Oxycodone is not consistently detected (refer to Oxycodone Screen, Urine result). Ordering Provider: Briseida GONZALEZ [address] Oxycodone+Oxymorphone Screen Ql (U) Negative NEGATIVE [facility] Work Phone: Comment on above: CUTOFF LEVEL: 100 NG /ML This test will accurately detect both oxycodone and oxymorphone. Ordering Provider: Briseida GONZALEZ [address] SEE BELOW [facility] Work Phone: Comment on above: Drug screen results are presumptive and should not be used to assess compliance with prescribed medication. Contact the performing [facility] [[email or web address]] laboratory to add-on definitive confirmatory testing if [...] laboratory medical directors. Ordering Provider: Briseida GONZALEZ [address] Provider Note - ED v2on 02-13 Provider [...] same issue. She presents today here at [place] as her anxiety continues to worsen. She [...] made to minimize errors. 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 Please call if questions.. 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 She will need this redrawn before she can be medically cleared. She has been medically cleared otherwise. Patient case transitioned to attending physician, Dr. Pierre CLINICAL IMPRESSION Diagnosis/Annotation: ED Dx Name:Anxiety Code:F41.9 Name:Alcohol intoxication Code:F10.929 Disp (more content not included)... Normal [facility] Risk Screen - Adult Emergenc yon 03-13-2020 [...] Learning Preferencesindividual instruction Cultural Considerationsnone Developmental Considerationsnone Mormonism Considerationsnone Learning Assessment (Other Learner): Learning Assessment [...] an injured patient at a Trauma Center ([facility]/[place] /[place]): no Electronic Signatures: Jeronimo Teixeira (RN) (Signed 13-Mar-2020 21:24) Authored: Preferred Language, Advanced Directives, Family Violence Adult, Learning Assessment (Patient), Learning Assessment (Other Learner), Pressure Injury/TB/Substance, Pressure Injury, CAGE Last Updated: 13-Mar-2020 21:24 by Jeronimo Teixeira (RN) [facility] Triage - EDon 03-13-2020 Triage - ED Quick Triage: Are You no Have You Given In The Last 6 Weeksno Are You Currently Breastfeedingno The patient and/or guardian verbally acknowledges placement for services into the following (when Urgent Care Service hours are operating):emergency department Chart Review: ARRIVAL INFORMATION Mode of Arrival: ambulance Agency Name: [facility] CHIEF COMPLAINT LYLE BAILEY is a [...] obeys commands Best Verbal Response: (V5) oriented [place] Score: 15 Cough lasting greater than 3 [...] Medical History Reviewedyes Electronic Signatures: Jeronimo Teixeira (LILY) (Signed 13-Mar-2020 21:23) Entered: Risk Screens, Pain, Chart Review, Scores, Past Medical History Authored: Quick Triage, Risk Screens, Pain, Chart Review, Scores, Past Medical History Last Updated: 13-Mar-2020 21:23 by Jeronimo Teixeira (RN) Normal [facility] UA MICROSCOPICon 03-13-2020 RBC 1 /HPF Normal 0-5 [facility] Comment on above: Performed By: #### U AMIC #### [address] [address] WBC (U) [#/Vol] /uL Normal 0-5 [facility] Comment on above: Performed By: #### U AMIC #### [address] [address] URINALYSIS WITH CULTURE IF I NDICATEDon 03-13-2020 Appearance (U) CLEAR Normal CLEAR [facility] Comment on above: Performed By: #### C BCDF #### [address] [address] Bilirubin Ql (U) Negative Normal NEGATIVE [facility] Comment on above: Performed By: #### C BCDF #### [address] [address] Color (U) Colorless Normal STRAW,YELLOW [facility] Comment on above: Performed By: #### C BCDF #### [address] [address] Glucose Ql (U) Negative Normal NEGATIVE [facility] Comment on above: Performed By: #### C BCDF #### [address] [address] Hemoglobin Ql (U) SMALL(1+) Abnormal NEGATIVE [facility] Comment on above: Performed By: #### C BCDF #### [place] [id number] Ketones Ql (U) Negative Normal NEGATIVE [facility] Comment on above: Performed By: #### C BCDF #### [place] [id number] Leukocyte esterase Test strip Ql (U) Negative Normal NEGATIVE [facility] Comment on above: Performed By: #### C BCDF #### [address] [address] Nitrite Ql (U) Negative Normal NEGATIVE [facility] Comment on above: Performed By: #### C BCDF #### [address] [address] pH (U) 7.0 [pH] Normal 5.0 - 8.0 [facility] Comment on above: Performed By: #### C BCDF #### [address] [address] Protein Ql (U) Negative Normal NEGATIVE [facility] Comment on above: Performed By: #### C BCDF #### [address] [address] Specific gravity (U) [Rel density] 1.001 Low 1.005 - 1.035 [facility] Comment on above: Performed By: #### C BCDF #### [address] [address] Urobilinogen (U) [Mass/Vol] mg/dL Normal 0.0 - 1.9 [facility] Comment on above: Performed By: #### C BCDF #### [address] [address] Appearance (U) CLEAR CLEAR [facility] Work Phone: Comment on above: Ordering Provider: Briseida Dugan Color (U) Colorless See Below [facility] Work Phone: Comment on above: Reference Range: STR AW,YELLOW Ordering Provider: Briseida GONZALEZ [address] Glucose Ql (U) Negative NEGATIVE [facility] Work Phone: Comment on above: Ordering Provider: Briseida GONZALEZ [address] Ketones Ql (U) Negative NEGATIVE [facility] Work Phone: Comment on above: Ordering Provider: Briseida GONZALEZ [address] Leukocyte esterase Test strip Ql (U) Negative NEGATIVE [facility] Work Phone: Comment on above: Ordering Provider: Briseida GONZALEZ [address] pH (U) 7.0 [pH] 5.0 - 8.0 [facility] Work Phone: Comment on above: Ordering Provider: Briseida GONZALEZ [address] Protein (U) [Mass/Vol] Negative NEGATIVE [facility] Work Phone: Comment on above: Ordering Provider: Briseida GONZALEZ [address] RBC (U) [#/Vol] SMALL(1+) Abnormal NEGATIVE [facility] Work Phone: Comment on above: Ordering Provider: Briseida Dugan Specific gravity (U) [Rel density] 1.001 1 below low threshold See Below [facility] Work Phone: Comment on above: Reference Range: 1.0 05 - 1.035 Ordering Provider: Briseida MARROQUINMadeleine [address] URINALYSIS WITH CULTURE IF INDICATED Negative NEGATIVE [facility] Work Phone: Comment on above: CUTOFF LEVEL: 1 NG/M L The performance characteristics of this test have been determined by the individual laboratory site where testing is performed. This test has not been cleared or approved by the FDA; however, the FDA has determined that such clearance is not necessary. Ordering Provider: Briseida MARROQUINMadeleine Ritchie URINALYSIS WITH CULTURE IF INDICATED <2.0 0.0 - 1.9 [facility] Work Phone: Comment on above: Ordering Provider: Briseida Dugan Urinalysison 03-13-2020 Barbiturates Screen Ql (U) Negative NEGATIVE [facility] Work Phone: Comment on above: CUTOFF LEVEL: 200 NG /ML Ordering Provider: Briseida MARROQUINMadeleine Ritchie Benzodiazepines Ql (U) Negative NEGATIVE [facility] [facility] Work Phone: Comment on above: CUTOFF LEVEL: 200 NG /ML Ordering Provider: Briseida Dugan Cannabinoids Screen Ql (U) Negative NEGATIVE [facility] Work Phone: Comment on above: CUTOFF LEVEL: 50 NG/ ML Ordering Provider: Briseida RHEACUCO LOPEZMadeleine Ritchie Phencyclidine Ql (U) Negative NEGATIVE [facility] Internal [facility] Work Phone: Comment on above: CUTOFF LEVEL: 25 NG/ ML Cross-reactivity has been reported with dextromethorphan. Ordering Provider: Briseida WILKERSONCUCO LOPEZMadeleine [address]5523 Urinalysis, Microscopicon Urinalysis, Microscopic 1 {/HPF} 0-5 [facility] Work Phone: Comment on above: Ordering Provider: Briseida MARROQUINMadeleine 01681 Urinalysis, Microscopic <1 0-5 [facility] Work Phone: Comment on above: Ordering Provider: Briseida MARROQUINMadeleine 11020 Urine Teston 03-13 HCG ( test) Ql (U) Negative Negative [facility] Medicine Work Phone: Comment on above: Ordering Provider: Briseida WILKERSONCUCO LOPEZMadeleine [address] Office Visit (Internal Medic ine)on 03-02-2020 Follow-up [...] 03/02/2020 1:13:24 PM;Ordered; For:Hepatitis-C; Ordered By:Nathan Barlow; Yttap-6-Kbyrbpukjmc, Serum; Specimen Source:Blood (BLD); Status:Active; Requested for:02Mar2020; [...] Test); Due: (more content not included)... Normal [facility] CORONAVIRUS 2019 BY PCRon SARS-CoV-2 (COVID-19) RNA MOISES+probe Ql (Unsp spec) Not detected Normal Not Detected [facility] Comment on above: Result Comment: . [...] patient management decisions. Fact sheet for providers: https://www.fda.gov/media/183559/download Fact sheet for patients: https://www.fda.gov/media/333389/download This test has received FDA Emergency Use Authorization (EUA) and has been verified by [facility] ([facility]). This test is only authorized for the duration of time that circumstances exist to justify the authorization of the emergency use of in vitro diagnostic tests for the detection of SARS-CoV-2 virus and/or diagnosis of COVID-19 infection under section 564(b)(1) of the Act, 21 U.S.C. 360bbb-3(b)(1), unless the authorization is terminated or revoked sooner. [facility] is certified under CLIA-88 as qualified to perform high complexity testing. Testing is performed in the [facility] laboratories located at [address] [place] [address]. This is a corrected result. Previous value was PENDING, verified at 02/24/2020 10:55 Performed By: #### C OV19 #### [address] [place] [address] Covid 19 Resultson 1 SARS-CoV-2 (COVID-19) RNA [...] by the [facility] to see if any of your [...] or Naproxen (Aleve) can also be used. Xzgp-bsp-qautwxc cough and cold medicines can be used according to the instructions on the package. Some ffsd-veg-cpqrbtv medicines also contain acetaminophen. Make sure you [...] water are not available, use alcohol-based hand computer drafter. Avoid touching your eyes, nose, and mouth [...] like ibuprofen (Motrin) (more content not included)... [facility] CORONAVIRUS 2019 BY PCRon DATE OF SYMPTOM ONSET [YYYYMMDD]? 20200221 [facility] Comment on above: Performed By: #### C OV19 #### [facility] [address] [place] [address] Lab Specimen Source Nasal, Nasopharyngeal Normal [facility] Comment on above: Performed By: #### C OV19 #### [facility] [address] [place] [address] Coronavirus 2019 RNA by PCR, Symptomaticon 02-23-2020 When did you start to experience these symptoms [Date and time] [PhenX] 20200221 1 [facility] Medicine Work Phone: Comment on above: Ordering Provider: Janny HOLDEN RAFAEL [address] Coronavirus 2019 RNA by PCR, Symptomatic NOT DETECTED See Below [facility] Work Phone: [...] make patient management decisions.Fact sheet for providers: https://www.fda.gov/media/467884/downloadFact sheet for patients: https://www.fda.gov/media/978834/downloadThis test has received FDA Emergency Use Authorization (EUA) and has been verified by [facility] ([facility]). This test is only authorized for the duration of time that circumstances exist to justify the authorization of the emergency use of in vitro diagnostic tests for the detection of SARS-CoV-2 virus and/or diagnosis of COVID-19 infection under section 564(b)(1) of the Act, 21 U.S.C. 360bbb-3(b)(1), unless the authorization is terminated or revoked sooner. [facility] is certified under CLIA-88 as qualified to perform high complexity testing. Testing is performed in the [facility] laboratories located at [address] [place] [address].This is a corrected result. 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 Is : no REVIEW [...] Updated: 27-Jan-2020 11:59 by Colette Howell (PAC) [facility] URINE CULTURE,BACTERIALon URINE CULTURE,BACTERIAL PATIENT: LYLE BAILEY LOCATION: [facility]#: [id number] : 89 AGE: SEX: F ORDERED BY: [...] DOSE DEPENDENT NS=NONSUSCEPTIBLE X=REPORTED IN ERROR Normal [facility] Comment on above: Performed By: #### C [facility] #### [place] [address] Office Visit (Internal Medic ine)on 01-20-2020 Follow-up visit Diagnoses/Problems Assessed Headache (784.0) (R51.9) Patient Discussion/Summary F/U BEFORE FAX WORK EXCUSE TO [phone] Chief Complaint An interactive audio and video [...] 4 TIMES DAILY Vitals Vital Signs Recorded: [id number] 09:42AM Tobacco Usea) Yes Patient encouraged to [...] (Unsp spec) Not detected Normal Not Detected [facility] Comment on above: Result Comment: . This [...] this test method. Fact sheet for providers: https://www.fda.gov/media/721031/download Fact sheet for patients: https://www.fda.gov/media/851936/download This test has received FDA Emergency Use Authorization [EUA] and has been verified by [facility] ([facility]). This test is only authorized for the duration of time that circumstances exist to justify the authorization of the emergency use of in vitro diagnostic tests for the detection of SARS-CoV-2 virus and/or diagnosis of COVID-19 infection under section 564(b)(1) of the Act, 21 U.S.C. 360bbb-3(b)(1), unless the authorization is terminated or revoked sooner. [facility] is certified under CLIA-88 as qualified to perform high complexity testing. Testing is performed in the [facility] laboratories located at [address] [place] [address]. Performed By: #### C OV19 #### [place] [address] CORONAVIRUS 2019 BY PCRon Lab Specimen Source Nasal, Nasopharyngeal Normal [facility] Comment on above: Performed By: #### C OV19 #### [address] [facility] [place] [address] DATE OF SYMPTOM ONSET [YYYYMMDD]? 20200106 Normal [facility] Comment on above: Performed By: #### C OV19 #### [address] [facility] [address] EMPLOYED IN HEALTHCARE? No Normal [facility] Comment on above: Performed By: #### C OV19 #### [address] [facility] [address] HOSPITALIZED (OR PLANNED TO BE ADMITTED)? No Normal [facility] Comment on above: Performed By: #### C OV19 #### [place] [address] [facility] [place] [address] ICU? No Normal [facility] Comment on above: Performed By: #### C OV19 #### [place] [address] [facility] [place] [address] ? No Normal [facility] Comment on above: Performed By: #### C OV19 #### [facility] [address] [place] [id number] RESIDENT IN CONGREGATE CARE SETTING? No Normal [facility] Comment on above: Performed By: #### C OV19 #### [facility] [address] [place] [id number] SARS-CoV-2 (COVID-19) Ab [place] Ql No Normal [facility] Comment on above: Performed By: #### C OV19 #### [facility] [address] [place] [id number] SYMPTOMATIC DEFINED BY CDC? Yes Normal [facility] Comment on above: Performed By: #### C OV19 #### [facility] [address] [place] [id number] Office Visit (Internal Medic ine)on 01-06-2020 Follow-up visit Diagnoses/Problems Assessed Flu-like symptoms (780.99) (R68.89) Contact with and (suspected) exposure to other viral communicable diseases (V01.79) (Z20.828) Orders Contact with and (suspected) exposure to other viral communicable diseases, Flu-like symptoms Coronavirus 2019 RNA by PCR, Symptomatic; Status:Active; Requested for:06Jan2020; Perform:Lab Services - Lab To Draw (Non-Blood Test); Due:[id number];Ordered; For:Contact with and (suspected) exposure to other [...] Cigarette smoker; LISA = N; Sent To: [facility] 2258 Patient Discussion/Summary F/U BEFORE PER REQUEST WILL CALL SATURDAY FOR COVID RESULTS Provider Impressions SCHEDULED FOR [facility] COVID-19 TESTING. INSTRUCTED TO SELF QUARANTINE AND [...] Saturday01/04/20. SHE HAS TESTED NEGATIVE AT [facility] ON 12/31/19--C/O SINUS CONGESTION/RUNNY NOSE, [...] COMPLIANCEon 12-28-2019 6-ACETYLMORPHINE <25 Normal Cutoff <25 [facility] Comment on above: Performed By: #### C BCDF #### [facility] [address] [place] [address] CODEINE <50 Normal Cutoff <50 [facility] Comment on above: Performed By: #### C BCDF #### [place] [address] EDDP,U <25 Normal Cutoff <25 [facility] Comment on above: Result Comment: The [...] testing. Performed By: #### C BCDF #### [place] [address] FENTANYL CONFIRM,U <2.5 Normal Cutoff<2.5 [facility] Comment on above: Performed By: #### C BCDF #### [place] [address] HYDROCODONE <25 Normal Cutoff <25 [facility] Comment on above: Performed By: #### C BCDF #### [place] [address] METHADONE,U <25 Normal Cutoff <25 [facility] Comment on above: Performed By: #### C BCDF #### [place] [address] NORFENTANYL CONFIRM,U <2.5 Normal Cutoff<2.5 [facility] Comment on above: Result Comment: The [...] testing. Performed By: #### C BCDF #### [place] [address] NOROXYCODONE <25 Normal Cutoff <25 [facility] Comment on above: Performed By: #### C BCDF #### [place] [address] O-DESMETHYLTRAMADOL,U <50 Normal Cutoff <50 [facility] Comment on above: Result Comment: The [...] testing. Performed By: #### C BCDF #### [place] [address] OXYCODONE <25 Normal Cutoff <25 [facility] Comment on above: Performed By: #### C BCDF #### [place] [address] OXYMORPHONE <25 Normal Cutoff <25 [facility] Comment on above: Result Comment: The [...] testing. Performed By: #### C BCDF #### [place] [address] TRAMADOL CONFIRM,U <50 Normal Cutoff <50 [facility] Comment on above: Performed By: #### C BCDF #### [place] [id number] ZOLPIDEM METABOLITE[ZCA] ,U <25 Normal Cutoff <25 [facility] Comment on above: Result Comment: The [...] testing. Performed By: #### C BCDF #### [place] [address] ZOLPIDEM,URINE <25 Normal Cutoff <25 [facility] Comment on above: Performed By: #### C BCDF #### [address] [address] 7-AMINOCLONAZEPAM <25 Normal Cutoff <25 [facility] Comment on above: Performed By: #### C BCDF #### [place] [address] ALPHA-HYDROXYALPRAZOL AM <25 Normal Cutoff <25 [facility] Comment on above: Performed By: #### C BCDF #### [place] [address] ALPHA-HYDROXYMIDAZOLA M <25 Normal Cutoff <25 [facility] Comment on above: Performed By: #### C BCDF #### [place] [address] ALPRAZOLAM <25 Normal Cutoff <25 [facility] Comment on above: Performed By: #### C BCDF #### [place] [address] CHLORDIAZEPOXIDE <25 Normal Cutoff <25 [facility] Comment on above: Performed By: #### C BCDF #### [place] [address] CLONAZEPAM <25 Normal Cutoff <25 [facility] Comment on above: Performed By: #### C BCDF #### [place] [address] DIAZEPAM <25 Normal Cutoff <25 [facility] Comment on above: Performed By: #### C BCDF #### [place] [address] HYDROMORPHONE <25 Normal Cutoff <25 [facility] Comment on above: Performed By: #### C BCDF #### [place] [address] LORAZEPAM <25 Normal Cutoff <25 [facility] Comment on above: Performed By: #### C BCDF #### [place] [address] MIDAZOLAM <25 Normal Cutoff <25 [facility] Comment on above: Performed By: #### C BCDF #### [place] [address] MORPHINE <50 Normal Cutoff <50 [facility] Comment on above: Performed By: #### C BCDF #### [place] [address] NORDIAZEPAM <25 Normal Cutoff <25 [facility] Comment on above: Performed By: #### C BCDF #### [place] [address] NORHYDROCODONE <25 Normal Cutoff <25 [facility] Comment on above: Performed By: #### C BCDF #### [place] [address] OXAZEPAM <25 Normal Cutoff <25 [facility] Comment on above: Performed By: #### C BCDF #### [place] [address] TEMAZEPAM <25 Normal Cutoff <25 [facility] Comment on above: Result Comment: The [...] testing. Performed By: #### C BCDF #### [place] [address] OPIATE/OPIOID/BENZO EXTENDED PRESCRIPTION COMPLIANCEon 12-24-2019 Specific gravity (U) [Rel density] 1.0060 Normal Valid 1.0020-1.020 0 [facility] Comment on above: Performed By: #### C BCDF #### [place] [address] AMPHETAMINE SCREEN,U Negative Normal NEGATIVE [facility] Comment on above: Result Comment: CUTO FF LEVEL: 500 NG/ML Cross-reactivity has been reported with high concentrations of the following drugs: buproprion, chloroquine, chlorpromazine, ephedrine, mephentermine, fenfluramine, phentermine, phenylpropanolamine, pseudoephedrine, and propranolol. Performed By: #### C BCDF #### [place] [address] BARBITURATES SCREEN,U Negative Normal NEGATIVE [facility] Comment on above: Result Comment: CUTO FF LEVEL: 200 NG/ML Performed By: #### C BCDF #### [place] [address] CANNABINOIDS SCREEN,U Negative Normal NEGATIVE [facility] Comment on above: Result Comment: CUTO FF LEVEL: 50 NG/ML Performed By: #### C BCDF #### [place] [address] COCAINE METABOLITE SCREEN,U Negative Normal NEGATIVE [facility] Comment on above: Result Comment: CUTO FF LEVEL: 150 NG/ML Performed By: #### C BCDF #### [place] [address] Creatinine [Mass/Vol] 19.9 mg/dL Abnormal [facility] Comment on above: Result Comment: A ur ine creatinine result >= 20 mg/dL is considered valid without suspicion of dilution. Samples with results below this range will automatically reflex to specific gravity testing to verify specimen integrity. Performed By: #### C BCDF #### [place] [address] DRUG SCREEN COMMENT. SEE BELOW Normal [facility] Comment on above: Result Comment: Drug screen [...] directors. Performed By: #### C BCDF #### [place] [address] PCP SCREEN,U Negative Normal NEGATIVE [facility] Comment on above: Result Comment: CUTO FF LEVEL: 25 NG/ML Cross-reactivity has been reported with dextromethorphan. Performed By: #### C BCDF #### [facility] [address] [place] [address] Office Visit (Internal Medic ine)on 12-23-2019 Follow-up [...] attacks; LISA = N; Verified Transmission to [facility] [address]; Msg to Pharmacy: OARRS REVIEWED. VOID SCRIPT [...] For: 'Medication management'Ordered By: 'PRIMARY ASHL03 RN1, [id number]' URINE DRUG TOXICOLOGY ; every 1 year; Next 22Dec2020; Status:Active For: 'Medication management'Ordered By: 'PRIMARY ASHL03 RN1, [id number]' Restless legs syndrome Renew: Gabapentin 400 MG Oral Capsule; TAKE 1 CAPSULE 4 TIMES DAILY Rx By: Nini Wolf; Dispense: 30 Days ; #:120 Capsule; Refill: 2;For: Restless legs syndrome; LISA = N; Verified Transmission to [facility] 1448; Msg to Pharmacy: OARRS REVIEWED. VOID SCRIPT AND REFILLS 90 DAYS AFTER PRESCRIBING DATE.; Last Updated By: System, SourceNinja; 12/23/2019 11:38:38 AM Patient Discussion/Summary F/U 3 [...] of str (more content not included)... [facility] ([facility] Medic ine)on 11-03-2019 Follow-up [...] attacks; LISA = N; Verified Transmission to [facility] 1448; Msg to Pharmacy: OARRS REVIEWED. VOID SCRIPT 30 DAYS AFTER WRITTEN DATE. DO NOT FILL UNTIL 11/21/2019; Last Updated By: Vijay Antonio; 11/03/2019 1:42:47 PM Restless legs syndrome Renew: Gabapentin 400 MG Oral Capsule; TAKE 1 CAPSULE 3 TIMES DAILY Rx By: Nini Wolf; Dispense: 30 Days ; #:90 Capsule; Refill: 2;For: Restless legs syndrome; LISA = N; Verified Transmission to [facility] 1448; Msg to Pharmacy: OARRS [...] causing COVID-19 illness, and in accordance with [facility] guidelines which encourage social distancing, [...] A WAITING LIST TO SEE PSYCH IN [place], [place]. DUE FOR GABAPENTIN REFILL SOON. History [...] no numbness, (more content not included)... Normal [facility] Office Visit (Internal Medic ine)on 10-23-2019 Follow-up [...] panic attacks; LISA = N; Sent To: [facility] 1443; Msg to Pharmacy: OARRS REVIEWED. VOID SCRIPT 30 DAYS AFTER WRITTEN DATE; Last Updated By: System, Hepregener; 10/23/2019 12:31:10 PM Patient Discussion/Summary F/U BEFORE [...] causing COVID-19 illness, and in accordance with [facility] guidelines which encourage social distancing, [...] depression; LISA = N; Verified Transmission to [facility] 1448; Last Updated By: Riskclick; 10/13/2019 1:15:20 PM Bipolar depression, Generalized anxiety disorder with panic attacks Adult Psychiatry Referral Evaluation and Treatment Evaluate AND Treat Status: Hold For - Scheduling Requested for: 13Oct2019 Ordered;For: Bipolar depression, Generalized anxiety disorder with panic attacks; Ordered By: Nini Wolf Performed: Order Comments: NEL CHAVIS NP. KARTIK CASTELLON Due: 11Jan2020 Generalized anxiety disorder with panic attacks Start: clonazePAM 0.25 MG Oral Tablet Disintegrating; PLACE 1 TABLET ON TONGUE AND ALLOW TO DISSOLVE TWICE DAILY NEEDED Rx By: Nini Wolf; Dispense: 15 Days ; #:30 Tablet; Refill: 0;For: Generalized anxiety disorder with panic attacks; LISA = N; Verified Transmission to [facility] 1448; Msg to Pharmacy: OARRS REVIEWED. VOID SCRIPT 30 DAYS AFTER WRITTEN DATE. AVOID ALCOHOL WITH USAGE; Last Updated By: Riskclick; 10/13/2019 1:14:11 PM Patient Discussion/Summary F/U 3 [...] causing COVID-19 illness, and in accordance with [facility] guidelines which encourage social distancing, [...] for a telehealth visit. VIRITUAL VISIT; [facility] ED F/U-ANXIETY; C/O HAVING PANIC ATTACKS X 3 A WEEK-SHE ISN'T WANTING TO LEAVE HER HOUSE ANYMORE. History of Present IllnessVIRTUAL APPOINTMENT BEING PERFORMED DUE TO COVID-19 (CORONAVIRUS) Presents today for KARTIK SAGE F/U FOR ANXIETY/PANIC ATTACK. C/O INCREASED ANXIETY X 2 MONTHS modifying factors consists of WAS KEPT OVER NIGHT FOR OBSERVATION. 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 STATES SHE HAS A 3 MONTH [...] and pigmentat (more content not included)... Normal [facility] Office Visit (Internal Medic ine)on 09-08-2019 Follow-up visit Diagnoses/Problems Assessed Encounter for screening for other viral diseases (V73.89) (Z11.59) Flu-like symptoms (780.99) (R68.89) Contact with and (suspected) exposure to other viral communicable diseases (V01.79) (Z20.828) Patient Discussion/Summary F/U BEFORE Provider Impressions SCHEDULED FOR [facility] COVID-19 TESTING TODAY AT 1100. INSTRUCTED TO [...] WAS SENT HOME FROM WORK. WORKS AT [employer] IN [place] AND THEY REFUSE TO LET HER BACK [...] ReconstitutedINJECT INTRAMUSCULARLY DIRECTED. Vitals Vital Signs Recorded: [id number] 08:08AM Fall Screeninga) No falls within the last year Physical Exam Psychiatric Orientation: Oriented to person, place, and time. Time Time Spent With Patient: 11 minutes of which greater than 50 percent was spent counseling and or coordinating care. Signatures Electronically signed by : MOHAN Mcmillan; Sep 08 2019 8:18AM EST (Author) Normal [facility] Office Visit (Internal Medic ine)on 09-03-2019 Follow-up visit Diagnoses/Problems Assessed Generalized anxiety disorder with panic attacks (300.02,300.01) (F41.1,F41.0) Bipolar depression (296.50) (F31.9) Orders Bipolar depression Renew: ARIPiprazole 15 MG Oral Tablet; TAKE 1 TABLET DAILY Rx By: Nini Wolf; Dispense: 90 Days ; #:90 Tablet; Refill: 3;For: Bipolar depression; LISA = N; [facility] Patient Discussion/Summary F/U AROUND November [...] Bipolar depression; LISA = N; [facility]; Last Updated By: Neventum; 08/13/2019 9:21:58 AM Generalized anxiety disorder with panic attacks Renew: busPIRone HCl - 10 MG Oral Tablet; TAKE 2 TABLETS TWICE DAILY Rx By: Nini Wolf; Dispense: 90 Days ; #:360 Tablet; Refill: 0;For: Generalized anxiety disorder with panic attacks; LISA = N; Sent To: [facility] 1448 Restless legs syndrome Renew: Gabapentin 400 MG Oral Capsule; TAKE 1 CAPSULE 3 TIMES DAILY Rx By: Nini Wolf; Dispense: 30 Days ; #:90 Capsule; Refill: 2;For: Restless legs syndrome; LISA = N; Sent To: [facility] 1448; Msg to Pharmacy: OARRS REVIEWED. 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 Normal [facility] Clinical Summary-RTFon 06-21 Clinical Summary-RTF Clinical Summary Patient Details for LEO LYLE RachelCharisma ALVARENGA Preferred Name Female Sex [id number] [place], [address] Address [place] Language 1990 Born White Race Non- or [...] To Be Done: 22 Jun 2019 ? Ouvwj-6-Mwdjqrtqucp, Serum; To Be Done: 22 Jun 2019 [...] (Blood Test); Due:20Sep2019;Ordered; For:Hepatitis-C; Ordered By:Nathan Barlow; Mllrr-0-Yfwqkrcnwgh, Serum; Specimen Source:Blood (BLD); Status:Active; Requested for:22Jun2019; [...] (Blood Test); Due:20Sep2019;Ordered; For:Hepatitis-C; Ordered By:Nathan Barlow; MARKUS Liver Ultrasound; Status:Hold For - Scheduling; Requested [...] Liver; Status:Hold For - Scheduling; Requested for:22Jun2019; Perform:[facility]; Due:20Sep2019;Ordered; For:Hepatitis-C; Ordered [...] of hepatitis C and ways to Normal [facility] Office Visit (Internal Medic ine)on 06-10-2019 Follow-up [...] depression; LISA = N; [facility]; Last Updated By: Riskclick; 05/20/2019 4:28:24 PM Medication management CONTROLLED MEDICATION AGREEMENT ; every 1 year; Next 16Jan2020; Status:Active For: 'Medication management'Ordered By: 'PRIMARY ASHL03 RN1, [id number]' URINE DRUG TOXICOLOGY ; every 1 year; Next 18Feb2020; Status:Active For: 'Medication management'Ordered By: 'PRIMARY ASHL03 RN1, [id number]' Restless legs syndrome Renew: Gabapentin 400 MG Oral Capsule; TAKE 1 CAPSULE 3 TIMES DAILY Rx By: Nini Wolf; Dispense: 30 Days ; #:90 Capsule; Refill: 2; For: Restless legs syndrome; LISA = N; [facility]; Msg to Pharmacy: OARRS REVIEWED. VOID SCRIPT AND REFILLS 90 DAYS AFTER PRESCRIBING DATE; Last Updated By: Riskclick; 05/20/2019 4:28:25 PM SocHx: Cigarette smoker Start: Albuterol Sulfate HFA 108 (90 Base) MCG/ACT Inhalation Aerosol Solution; INHALE 2 PUFFS Every 6 hours PRN SOB/WHEEZING Rx By: Nini Wolf; Dispense: 30 Days ; #:1 X 6.7 GM Inhaler; Refill: 5; For: SocHx: Cigarette smoker; LSIA = N; Verified Transmission to [facility] 1448; Last Updated By: Riskclick; 05/20/2019 4:28:23 PM Tobacco Use Screening; Status:Complete; Done: 20May2019 Perform:Not Applicable;Ordered; For:SocHx: Cigarette smoker; Ordered By:Nini Wolf; Start: Chantix 1 MG Oral Tablet; Take 1 tablet twice daily Rx By: Nini Wolf; Dispense: 30 Days ; #:60 Tablet; Refill: 4; For: SocHx: Cigarette smoker; LISA = N; Verified Transmission to [facility]48; Msg to Pharmacy: TO START AFTER STARTER PACK; Last Updated By: [employer]; 05/20/2019 4:28:22 PM Start: Chantix Starting Month Lewis 0.5 MG X 11 AND 1 MG X 42 Oral Tablet; TAKE DIRECTED PER PACKAGE INSTRUCTIONS Rx By: Nini Wolf; Dispense: 0 Days ; #:1 X 53 Tablet Pack; Refill: 0; For: SocHx: Cigarette smoker; LISA = N; Verified Transmission to [facility] 1448; Last Updated By: [employer]; 05/20/2019 4:28:24 PM Patient Discussion/Summary F/U 3 MONTHS GABAPENTIN REFILL Provider Impressions In light of the current pandemic related to Coronavirus causing COVID-19 illness, and in accordance with [facility] guidelines which encourage social distancing, [...] spent 10 (more content not included)... Normal [facility] Metabolic Panelon 02-17-2019 Creatinine [Mass/Vol] 88.3 mg/dL [facility] Internal Medicine Work Phone: Comment on above: A urine creatinine r esult >= 20 mg/dL is considered valid without suspicion of dilution. Samples with results below this range will automatically reflex to specific gravity testing to verify specimen integrity. Otheron 02-17-2019 1-Hydroxymidazolam Confirm (U) [Mass/Vol] <25 Cutoff <25 [facility] Internal Medicine Work Phone: 3-Yofzinnndt-4,5-Dime thyl-3,3-Diphenylpyrr olidine (EDDP) Confirm (U) [Mass/Vol] <25 Cutoff <25 [facility] Internal [facility] Work Phone: Comment on above: The [...] (6-JACLYN) Confirm (U) [Mass/Vol] <25 Cutoff <25 [facility] Medicine Work Phone: 7-Aminoclonazepam Confirm (U) [Mass/Vol] <25 Cutoff <25 [facility] Work Phone: Alpha hydroxyalprazolam Confirm (U) [Mass/Vol] <25 Cutoff <25 -[facility] Medicine Work Phone: Alprazolam Confirm (U) [Mass/Vol] <25 Cutoff <25 [facility] Work Phone: Amphetamines Screen Ql (U) Negative NEGATIVE [facility] Internal [facility] Work Phone: Comment on above: CUTOFF LEVEL: 500 NG /ML Cross-reactivity has been reported with high concentrations of the following drugs: buproprion, chloroquine, chlorpromazine, ephedrine, mephentermine, fenfluramine, phentermine, phenylpropanolamine, pseudoephedrine, and propranolol. Benzoylecgonine Screen Ql (U) Negative NEGATIVE [facility] Internal [facility] Work Phone: Comment on above: CUTOFF LEVEL: 150 NG /ML Chlordiazepoxide Confirm (U) [Mass/Vol] <25 Cutoff <25 [facility] Internal [facility] Work Phone: Clonazepam Confirm (U) [Mass/Vol] <25 Cutoff <25 [facility] Internal [facility] Work Phone: Codeine Confirm (U) [Mass/Vol] <25 Cutoff <25 [facility] Medicine Work Phone: Diazepam Confirm (U) [Mass/Vol] <25 Cutoff <25 [facility] Medicine Work Phone: Fentanyl Confirm (U) [Mass/Vol] <2.5 Cutoff<2.5 [facility] Medicine Work Phone: Hydrocodone Confirm (U) [Mass/Vol] <25 Cutoff <25 [facility] Work Phone: Hydromorphone Confirm (U) [Mass/Vol] <25 Cutoff <25 [facility] Work Phone: Lorazepam Confirm (U) [Mass/Vol] <25 Cutoff <25 [facility] Work Phone: Methadone Confirm (U) [Mass/Vol] <25 Cutoff <25 [facility] Work Phone: Midazolam Confirm (U) [Mass/Vol] <25 Cutoff <25 [facility] Work Phone: Morphine Confirm (U) [Mass/Vol] <25 Cutoff <25 [facility] Work Phone: Nordiazepam Confirm (U) [Mass/Vol] <25 Cutoff <25 [facility] Work Phone: Norfentanyl Confirm (U) [Mass/Vol] <2.5 Cutoff<2.5 [facility] Internal [facility] Work Phone: Comment on above: The [...] Norhydrocodone Confirm (U) [Mass/Vol] <25 Cutoff <25 [facility] Work Phone: Noroxycodone Confirm (U) [Mass/Vol] <25 Cutoff <25 [facility] Work Phone: Nortramadol (U) [Mass/Vol] <25 Cutoff <25 [facility] Work Phone: Comment on above: [...] Oxazepam Confirm (U) [Mass/Vol] <25 Cutoff <25 [facility] Internal [facility] Work Phone: Oxycodone Confirm (U) [Mass/Vol] <25 Cutoff <25 [facility] Work Phone: Oxymorphone Confirm (U) [Mass/Vol] <25 Cutoff <25 -[facility] Work Phone: Comment on above: [...] Temazepam Confirm (U) [Mass/Vol] <25 Cutoff <25 [facility] Work Phone: Comment on above: [...] Tramadol Confirm (U) [Mass/Vol] <25 Cutoff <25 [facility] Work Phone: Zolpidem (U) [Mass/Vol] <25 Cutoff <25 [facility] Work Phone: SEE BELOW [facility] Work Phone: Comment on above: [...] the laboratory medical directors. <25 Cutoff <25 [facility] Internal Medicine Work Phone: [...] 02-17-2019 Barbiturates Screen Ql (U) Negative NEGATIVE [facility] Internal Medicine Work Phone: Comment on above: CUTOFF LEVEL: 200 NG /ML Cannabinoids Screen Ql (U) Negative NEGATIVE -[facility] Medicine Work Phone: Comment on above: CUTOFF LEVEL: 50 NG/ ML Phencyclidine Ql (U) Negative NEGATIVE -[facility] Medicine Work Phone: Comment on above: CUTOFF LEVEL: 25 NG/ ML Cross-reactivity has been reported with dextromethorphan. Auto Diffon 11-14-2018 Basophils (Bld) [#/Vol] 0.1 E3/mcL Normal 0.0-0.2 [facility] Comment on above: Order Comment: Order Added by Discern Expert. Performed By: #### 2 [id number] #### FABBY [employer] [address] [place] [address] Basophils/100 WBC (Bld) 1.0 % Normal 0.0-2.0 [facility] Comment on above: Order Comment: Order Added by Discern Expert. Performed By: #### 2 [id number] #### FABBY [employer] [address] [place] [address] Eos Absolute 0.1 E3/mcL Normal 0.0-0.7 [facility] Comment on above: Order Comment: Order Added by Discern Expert. Performed By: #### 2 [id number] #### FABBY [employer] [address] [place] [address] Eosinophils/100 WBC (Bld) 1.2 % Normal 0.0-11.0 [facility] Comment on above: Order Comment: Order Added by Discern Expert. Performed By: #### 2 [id number] #### FABBY [employer] [address] [place] [address] Lymphocytes (Bld) [#/Vol] 3.2 E3/mcL Normal 1.2-3.4 [facility] Comment on above: Order Comment: Order Added by Discern Expert. Performed By: #### 2 [id number] #### FABBY [employer] [address] [place] [address] Lymphocytes/100 WBC (Bld) 36.5 % Normal 20.0-55.0 [facility] Comment on above: Order Comment: Order Added by Discern Expert. Performed By: #### 2 [id number] #### FABBY [employer] [address] [place] [address] [place] Absolute 0.5 E3/mcL Normal 0.0-0.7 [facility] Comment on above: Order Comment: Order Added by Discern Expert. Performed By: #### 2 [id number] #### FABBY [employer] [address] [place] [address] Monocytes/100 WBC (Bld) 5.7 % Normal 0.0-10.0 [facility] Comment on above: Order Comment: Order Added by Discern Expert. Performed By: #### 2 [id number] #### FABBY [employer] [address] [place] [address] Neutro Absolute 4.9 E3/mcL Normal 1.4-6.5 [facility] Comment on above: Order Comment: Order Added by Discern Expert. Performed By: #### 2 [id number] #### FABBY [employer] [address] [place] [address] Neutro Auto 55.6 % Normal 37.0-75.0 [facility] Comment on above: Order Comment: Order Added by Discern Expert. Performed By: #### 2 [id number] #### FABBY [employer] [address] [place] [address] BhCG Qualon 11-14-2018 Beta hCG Ql Negative Normal Negative [facility] Comment on above: Performed By: #### 2 [id number] #### FABBY Chemistry Manual Subsection [facility] [place] [address] CBC w/ Auto Diffon 9 Erythrocyte distribution width (RBC) [Ratio] 14.5 % Normal 11.5-14.5 [facility] Comment on above: Performed By: #### 2 [id number] #### FABBY [employer] [address] [place] [address] Hematocrit (Bld) [Volume fraction] 44.6 % Normal 36.0-48.0 [facility] Comment on above: Performed By: #### 2 [id number] #### FABBY [employer] [facility] [place] [address] Hemoglobin (Bld) [Mass/Vol] 15.3 g/dL Normal 12.0-16.0 [facility] Comment on above: Performed By: #### 2 [id number] #### FABBY [employer] [address] [place] [address] MCH (RBC) [Entitic mass] 31.3 pg High 27.0-31.0 [facility] Comment on above: Performed By: #### 2 [id number] #### FABBY [employer] [address] [place] [address] MCHC (RBC) [Mass/Vol] 34.2 g/dL Normal 33.0-37.0 [facility] Comment on above: Performed By: #### 2 [id number] #### FABBY [employer] [address] [place] [address] MCV (RBC) [Entitic vol] 91.4 fL Normal 78.0-100.0 [facility] Comment on above: Performed By: #### 2 [id number] #### FABBY [employer] [address] [place] [address] Platelet mean volume (Bld) [Entitic vol] 8.4 fL Normal 7.4-11.0 [facility] Comment on above: Performed By: #### 2 [id number] #### FABBY [employer] [address] [place] [address] Platelets (Bld) [#/Vol] 285 E3/mcL Normal 130-400 [facility] Comment on above: Performed By: #### 2 [id number] #### FABBY [employer] [address] [place] [address] RBC (Bld) [#/Vol] 4.88 E6/mcL Normal 3.90-5.40 [facility] Comment on above: Performed By: #### 2 [id number] #### FABBY Rem[employer] [address] [place] [address] WBC (Bld) [#/Vol] 8.8 E3/mcL Normal 3.6-11.0 [facility] Comment on above: Performed By: #### 2 775119 #### FABBY Rem[employer] [address] [place] [address] CMPon 11-14-2018 Albumin [Mass/Vol] 4.4 g/dL Normal 3.4-5.0 [facility] Comment on above: Performed By: #### 2 [id number] #### FABBY [employer] [address] [place] [address] Albumin/Globulin [Mass ratio] 1.3 {ratio} Normal 1.1-1.9 [facility] Comment on above: Performed By: #### 2 [id number] #### FABBY [employer] [address] [place] [address] Alk Phos 82 Int._Unit/L Normal 33-110 [facility] Comment on above: Performed By: #### 2 [id number] #### FABBY [employer] [address] [place] [address] ALT [Catalytic activity/Vol] 41 Int._Unit/L Normal 7-45 [facility] Comment on above: Performed By: #### 2 [id number] #### FABBY [employer] [address] [place] [address] Anion gap [Moles/Vol] 14 mmol/L Normal 10-20 [facility] Comment on above: Performed By: #### 2 [id number] #### FABBY [employer] [address] [place] [address] AST [Catalytic activity/Vol] 51 Int._Unit/L High 9-39 [facility] Comment on above: Performed By: #### 2 [id number] #### FABBY [employer] [address] [place] [address] Bili Total 0.31 mg/dL Normal 0.00-1.20 [facility] Comment on above: Performed By: #### 2 460805 #### FABBY [employer] [address] [place] [address] Calcium [Mass/Vol] 8.9 mg/dL Normal 8.6-10.3 [facility] Comment on above: Performed By: #### 2 [id number] #### FABBY [employer] [address] [place] [address] Chloride [Moles/Vol] 107 mmol/L Normal 98-107 [facility] Comment on above: Performed By: #### 2 [id number] #### FABBY [employer] [address] [place] [address] CO2 [Moles/Vol] 22.0 mmol/L Normal 21.0-32.0 [facility] Comment on above: Performed By: #### 2 616018 #### FABBY [employer] [address] [place] [address] Creatinine [Mass/Vol] 0.8 mg/dL Normal 0.5-1.1 [facility] Comment on above: Performed By: #### 2 [id number] #### FABBY [employer] [address] [place] [address] Globulin (S) [Mass/Vol] 3.0 g/dL Normal 2.0-4.0 [facility] Comment on above: Performed By: #### 2 [id number] #### FABBY [employer] [address] [place] [address] Glucose [Mass/Vol] 82 mg/dL Normal 70-99 [facility] Comment on above: Performed By: #### 2 555189 #### FABBY [employer] [address] [place] [address] Potassium [Moles/Vol] 4.0 mmol/L Normal 3.5-5.3 [facility] Comment on above: Performed By: #### 2 [id number] #### FABBY [employer] [address] [place] [address] Protein [Mass/Vol] 7.7 g/dL Normal 6.4-8.2 [facility] Comment on above: Performed By: #### 2 435702 #### FABBY [employer] [address] [place] [address] Sodium [Moles/Vol] 139 mmol/L Normal 136-145 [facility] Comment on above: Performed By: #### 2 [id number] #### FABBY [employer] [address] [place] [address] Urea nitrogen [Mass/Vol] 8 mg/dL Normal 6-23 [facility] Comment on above: Performed By: #### 2 [id number] #### FABBY [employer] [address] [place] [address] Urea nitrogen/Creatinine [Mass ratio] 10.0 ratio Normal 5.4-30.0 [facility] Comment on above: Performed By: #### 2 [id number] #### FABBY [employer] [address] [place] [address] Ethanolon 11-14-2018 Ethanol [Mass/Vol] 151 mg/dL Critically abnormal <=10 [facility] Comment on above: Result Comment: Crit ical Result (s) Called to and read back by: JEFFREY ROBISON at: 11/13/2018 23:04:17 by:KEEGAN Performed By: #### 2 [id number] #### FABBY [employer] [address] [place] [address] Magnesiumon 11-14-2018 Magnesium [Mass/Vol] 2.3 mg/dL Normal 1.6-2.4 [facility] Comment on above: Performed By: #### 2 583105 #### FABBY [employer] [address] [place] [address] U Drug Screenon 11-14-2018 U Amph Scr Negative Normal Negative [facility] Comment on above: Performed By: #### 2 [id number] #### FABBY [employer] [address] [place] [address] U Janell Scr Negative Normal Negative [facility] Comment on above: Performed By: #### 2 [id number] #### FABBY [employer] [address] [place] [address] U Benzodia Scr Negative Normal Negative [facility] Comment on above: Performed By: #### 2 [id number] #### FABBY [employer] [address] [place] [address] U Cannab Scr Negative Normal Negative [facility] Comment on above: Performed By: #### 2 [id number] #### FABBY [employer] [address] [place] [address] U Cocaine Scr Negative Normal Negative [facility] Comment on above: Performed By: #### 2 640304 #### FABBY [employer] [address] [place] [address] U Opiate Scr Negative Normal Negative [facility] Comment on above: Performed By: #### 2 [id number] #### FABBY [employer] [address] [place] [address] U PCP Scr Negative Normal Negative [facility] Comment on above: Performed By: #### 2 745131 #### FABBY [employer] [address] [place] [address] UA Completeon 11-14-2018 Color (U) Yellow Normal Yellow [facility] Comment on above: Performed By: #### 8 [id number] #### FABBY Urinalysis Automated Subsection [address] [place] [address] Glucose (U) [Mass/Vol] Negative Normal Negative [facility] Comment on above: Performed By: #### 8 [id number] #### FABBY Urinalysis Automated Subsection [address] [place] [address] Ketones Ql (U) Negative Normal Negative [facility] Comment on above: Performed By: #### 8 [id number] #### FABBY Urinalysis Automated Subsection [address] [place] [address] RBC (U) [#/Vol] 0-3 Normal 0-3 [facility] Comment on above: Performed By: #### 8 [id number] #### FABBY Urinalysis Automated Subsection [address] [place] [address] UA Blood Negative Normal Negative [facility] Comment on above: Performed By: #### 8 [id number] #### FABBY Urinalysis Automated Subsection [address] [place] [address] UA Bacteria 1+ /HPF Abnormal None [facility] Comment on above: Performed By: #### 8 [id number] #### FABBY Urinalysis Automated Subsection [facility] [place] [address] UA Clarity SltCloudy Abnormal Clear [facility] Comment on above: Performed By: #### 8 [id number] #### FABBY Urinalysis Automated Subsection [facility] [place] [address] UA Leuk Est Negative Normal Negative [facility] Comment on above: Performed By: #### 8 [id number] #### FABBY Urinalysis Automated Subsection [facility] [place] [address] UA Mucous Occasional Abnormal Trace [facility] Comment on above: Performed By: #### 8 [id number] #### FABBY Urinalysis Automated Subsection [address] [place] [address] UA Nitrite Negative Normal Negative [facility] Comment on above: Performed By: #### 8 [id number] #### FABBY Urinalysis Automated Subsection [address] [place] [address] UA pH 6.0 Normal 4.6-8.0 [facility] Comment on above: Performed By: #### 8 [id number] #### FABBY Urinalysis Automated Subsection [address] [place] [address] UA Protein Negative Normal Negative [facility] Comment on above: Performed By: #### 8 [id number] #### FABBY Urinalysis Automated Subsection [address] [place] [address] UA Spec Grav 1.009 Normal 1.003-1.030 [facility] Comment on above: Performed By: #### 8 [id number] #### FABBY Urinalysis Automated Subsection [facility] [place] [address] UA Squam Epithelial 0-5 Normal 0-5 [facility] Comment on above: Performed By: #### 8 [id number] #### FABBY Urinalysis Automated Subsection [facility] [place] [address] UA Urobilinogen Negative Normal [facility] Comment on above: Result Comment: Due to a manufacturing issue, low positive urobilinogen results may be fasely positive. Correlate with urine bilirubin and additional clinical/laboratory findings to assess the risk of hemolytic anemia or liver disease. If clinically indicated, repeat testing with an alternate method is available by contacting the laboratory within 24 hours. Performed By: #### 8 [id number] #### FABBY Urinalysis Automated Subsection [address] [place] [address] UA WBC 0-5 Normal 0-5 [facility] Comment on above: Performed By: #### 8 [id number] #### FABBY Urinalysis Automated Subsection [address] [place] [address] Urobilinogen Qn (U) Negative Normal Negative [facility] Comment on above: Performed By: #### 8 [id number] #### FABBY Urinalysis Automated Subsection [facility] [place] [address] eGFRon 11-14-2018 GFR/1.73 sq M predicted among non-blacks MDRD (S/P/Bld) [Vol rate/Area] mL/min/{1.73_m2} Normal [facility] Comment on above: Order Comment: Order added by Discern Expert. Performed By: #### 1 [id number] #### FABBY [employer] [facility] [place] [address] APTTon 11-01-2018 aPTT Coag (Bld) [Time] 20.7 s [place], [place] Comment on above: PTT Therapeutic Range: 61.7-88.4 Therapeutic range corresponds to plasma heparin levels of 0.3-0.7 U/mL. CBC Auto Differentialon 10-13 Basophils (Bld) [#/Vol] 0.00 10*3/uL [place] Basophils/100 WBC (Bld) 0 % 0 - 2 % [place] Differential Type YES [facility] [employer], [place] Eosinophils (Bld) [#/Vol] 0.10 10*3/uL [place] Eosinophils/100 WBC (Bld) 1 % 0 - 5 % [place] Erythrocyte distribution width (RBC) [Ratio] 14.4 % 12.1 - 15.2 % [place] Hematocrit (Bld) [Volume fraction] 40.4 % 36 - 46 % [place] Hemoglobin (Bld) [Mass/Vol] 13.6 g/dL 12 - 16 g/dL [place] Interpretation and review of laboratory results Abnormal [place] Lymphocytes (Bld) [#/Vol] 2.50 10*3/uL [place] Lymphocytes/100 WBC (Bld) 23 % 15 - 40 % [place] MCH (RBC) [Entitic mass] 30.6 pg 26 - 34 pg [place] MCHC (RBC) [Mass/Vol] 33.7 g/dL 31 - 37 g/dL [place] MCV (RBC) [Entitic vol] 90.9 fL 80 - 100 fL [place] Monocytes (Bld) [#/Vol] 0.10 10*3/uL [place] Monocytes/100 WBC (Bld) 1 % Low 4 - 8 % [place] Platelet mean volume (Bld) [Entitic vol] NOT REPORTED 6 - 12 fL [place] Platelets (Bld) [#/Vol] NOT REPORTED [place] Platelets (Bld) [#/Vol] 188 10*3/uL [place] RBC (Bld) [#/Vol] 4.45 10*6/uL 4 - 5.2 m/uL [place] RBC morphology finding Nom (Bld) NOT REPORTED [place] Segmented neutrophils/100 WBC (Bld) 75 % 47 - 75 % [place] Segs Absolute 8.30 [place] WBC (Bld) [#/Vol] 11.0 10*3/uL [place] WBC (Bld) [#/Vol] NOT REPORTED per 100 WBC [place] WBC Morphology NOT REPORTED [place] Comprehensive Metabolic Pane mary beth 11-01-2018 Albumin [Mass/Vol] 4.5 g/dL 3.5 - 5.2 g/dL [place] Albumin/Globulin [Mass ratio] NOT REPORTED [place] ALP [Catalytic activity/Vol] 80 U/L 35 - 104 U/L [place] ALT [Catalytic activity/Vol] 45 U/L High 5 - 33 U/L [place] Anion gap [Moles/Vol] 10 mmol/L 9 - 17 mmol/L [place] AST [Catalytic activity/Vol] 46 U/L High <32 [place] Bilirubin Ql (U) 0.33 mg/dL 0.3 - 1.2 mg/dL [place] Bun/Cre Ratio 18 [place] Calcium [Mass/Vol] 9.7 mg/dL 8.6 - 10. 4 mg/dL [place] Chloride [Moles/Vol] 100 mmol/L 98 - 10 7 mmol/L [place] CO2 [Moles/Vol] 25 mmol/L 20 - 31 mmol/L [place] Creatinine [Mass/Vol] 0.6 mg/dL 0.5 - 0.9 mg/dL [place] GFR >60 >60 mL/min [place] GFR Non- >60 >60 mL/min [place] GFR/1.73 sq M predicted among non-blacks MDRD (S/P/Bld) [Vol rate/Area] [place] Comment on above: Average GFR for 20-2 9 years old: 116 mL/min/1.73sq m Chronic Kidney Disease: <60 mL/min/1.73sq m Kidney failure: <15 mL/min/1.73sq m eGFR calculated using average adult body mass. Additional eGFR calculator available at: http://www.[employer]/multiple_crcl_2012.htm GFR/1.73 sq M predicted among non-blacks MDRD (S/P/Bld) [Vol rate/Area] NOT REPORTED [place] Glucose [Mass/Vol] 87 mg/dL 70 - 99 mg/dL [place] Interpretation and review of laboratory results Abnormal [place] Potassium [Moles/Vol] 4.0 mmol/L 3.7 - 5.3 mmol/L [place] Protein [Mass/Vol] 8.2 g/dL 6.4 - 8.3 g/dL [place] Sodium [Moles/Vol] 135 mmol/L 135 - 144 mmol/L [place] Urea nitrogen [Mass/Vol] 11 mg/dL 6 - 20 mg/dL [place] D-dimer, quantitativeon 10-13 D-Dimer, Quant 0.52 [place], [place] Comment on above: Elevated levels of [...] Interpretation and review of laboratory results Abnormal [place], [place] Immature granulocytes (Bld) [#/Vol] NOT REPORTED [place] Protime-INRon 11-01-2018 INR Coag (PPP) [Relative time] 1.0 {INR} [place], [place] Comment on above: * THERAPY INDICATIONS * REFERENCE RANGES Pts not on anti-coagulants 1.0 - 1.5 INR Low risk pts on anti-coagulants 2.0 - 3.0 INR High risk pts on anti-coagulants 2.5 - 3.5 INR Prevention of atrial thrombo-embolism 3.0 - 4.5 INR PT Coag (PPP) [Time] 9.7 [place], [place] Alcoholon 06-21-2018 Ethanol mass conc 0.165 G/dL Normal [facility] Comment on above: Performed By: #### A LCOH #### [facility] [address] [place] [address] Ethanol mass conc 188 mg/dL Normal [facility] Comment on above: Performed By: #### A LCOH #### [facility] [address] [facility] [address] CBC With Platelet and Differ entialon 06-21-2018 Basophils #/vol (Bld) 0.1 10*3/uL Normal 0.0-0.2 Me [facility] Comment on above: Performed By: #### C BCWD #### [facility] [address] [place] [address] Basophils/100 WBC (Bld) 1.0 % Normal [facility] Comment on above: Performed By: #### C BCWD #### [facility] [address] [place] [address] Eosinophils #/vol (Bld) 0.0 10*3/uL Normal 0.0-0.7 [facility] Comment on above: Performed By: #### C BCWD #### [facility] [address] [place] [address] Eosinophils/100 WBC (Bld) 0.2 % Normal [facility] Comment on above: Performed By: #### C BCWD #### [facility] [address] [place] [address] Erythrocyte distribution width Ratio (RBC) 14.6 % Critically high 11.5-14.5 [facility] Comment on above: Performed By: #### C BCWD #### [facility] [address] [place] [address] Hematocrit Volume Fraction (Bld) 43.0 % Normal 37.0-47.0 [facility] Comment on above: Performed By: #### C BCWD #### [facility] [address] [place] [address] Hemoglobin mass conc (Bld) 14.6 g/dL Normal 12.0-16.0 [facility] Comment on above: Performed By: #### C BCWD #### [facility] [address] [place] [address] Lymphocytes #/vol (Bld) 3.7 10*3/uL Normal 1.0-4.8 [facility] Comment on above: Performed By: #### C BCWD #### [facility] [address] [place] [address] Lymphocytes/100 WBC (Bld) 50.2 % Normal [facility] Comment on above: Performed By: #### C BCWD #### [facility] [address] [place] [address] MCH Entitic mass (RBC) 30.3 pg Normal 27.0-31.3 [facility] Comment on above: Performed By: #### C BCWD #### [facility] [address] [place] [address] MCHC mass conc (RBC) 33.9 % Normal 33.0-37.0 [facility] Comment on above: Performed By: #### C BCWD #### [facility] [address] [place] [address] MCV Entitic volume (RBC) 89.4 fL Normal 82.0-100.0 [facility] Comment on above: Performed By: #### C BCWD #### [facility] [address] [place] [address] Monocytes #/vol (Bld) 0.3 10*3/uL Normal 0.2-0.8 [facility] Comment on above: Performed By: #### C BCWD #### [facility] [address] [place] [address] Monocytes/100 WBC (Bld) 3.5 % Normal [facility] Comment on above: Performed By: #### C BCWD #### [facility] [address] [place] [address] Neutrophils #/vol (Bld) 3.3 10*3/uL Normal 1.4-6.5 [facility] Comment on above: Performed By: #### C BCWD #### [facility] [address] [place] [address] Neutrophils/100 WBC (Bld) 45.1 % Normal [facility] Comment on above: Performed By: #### C BCWD #### [facility] [address] [place] [address] Platelets #/vol (Bld) 253 10*3/uL Normal 130-400 [facility] Comment on above: Performed By: #### C BCWD #### [facility] [address] [place] [address] RBC #/vol (Bld) 4.81 10*6/uL Normal 4.20-5.40 [facility] Comment on above: Performed By: #### C BCWD #### [facility] [address] [place] [address] WBC #/vol (Bld) 7.3 10*3/uL Normal 4.8-10.8 [facility] Comment on above: Performed By: #### C BCWD #### [facility] [address] [place] [address] Comprehensive Metabolic Pane mary beth 06-21-2018 Albumin mass conc 4.8 g/dL Critically high 3.5-4.6 [facility] Comment on above: Performed By: #### C MP #### [facility] [address] [place] [address] ALP enzyme act/vol 76 U/L Normal 40-130 [facility] Comment on above: Performed By: #### C MP #### [facility] [address] [place] [address] ALT enzyme act/vol 130 U/L Critically high 0-33 M [facility] Comment on above: Performed By: #### C MP #### [facility] [address] [place] [address] Anion gap molar conc 18 mmol/L Critically high 9-15 [facility] Comment on above: Performed By: #### C MP #### [facility] [address] [place] [address] AST enzyme act/vol 86 U/L Critically high 0-35 M [facility] Comment on above: Performed By: #### C MP #### [facility] [address] [place] [address] Bilirubin mass conc 0.3 mg/dL Normal 0.2-0.7 [facility] Comment on above: Performed By: #### C MP #### [facility] [address] [place] [address] Calcium mass conc 8.5 mg/dL Normal 8.5-9.9 [facility] Comment on above: Performed By: #### C MP #### [facility] [address] [place] [address] Chloride molar conc 105 mmol/L Normal 95-107 [facility] Comment on above: Performed By: #### C MP #### [facility] [address] [place] [address] CO2 molar conc 23 mmol/L Normal 20-31 [facility] Comment on above: Performed By: #### C MP #### [facility] [address] [place] [address] Creatinine mass conc 0.61 mg/dL Normal 0.50-0.90 [facility] Comment on above: Performed By: #### C MP #### [facility] [address] [place] [address] GFR/1.73 sq M predicted among blacks MDRD vol rate/area (S/P/Bld) mL/min/{1.73_m2} Normal >60 [facility] Comment on above: Result Comment: >60 mL/min/1.73m2 EGFR, calc. for ages 18 and older using the MDRD formula (not corrected for weight), is valid for stable renal function. Performed By: #### C MP #### [facility] [address] [place] [address] GFR/1.73 sq M.predicted MDRD vol rate/area mL/min/{1.73_m2} Normal >60 [facility] Comment on above: Result Comment: >60 mL/min/1.73m2 EGFR, calc. for ages 18 and older using the MDRD formula (not corrected for weight), is valid for stable renal function. Performed By: #### C MP #### [facility] [address] [place] [address] Globulin mass conc (S) 3.2 g/dL Normal 2.3-3.5 [facility] Comment on above: Performed By: #### C MP #### [facility] [address] [place] [address] Glucose mass conc 108 mg/dL Critically high 70-99 [facility] Comment on above: Performed By: #### C MP #### [facility] [address] [place] [address] Potassium molar conc 3.8 mmol/L Normal 3.4-4.9 [facility] Comment on above: Performed By: #### C MP #### [facility] [address] [place] [address] Protein mass conc 8.0 g/dL Normal 6.3-8.0 [facility] Comment on above: Performed By: #### C MP #### [facility] [address] [place] [address] Sodium molar conc 146 mmol/L Critically high 135-144 [facility] Comment on above: Performed By: #### C MP #### [facility] [address] [place] [address] Urea nitrogen mass conc 9 mg/dL Normal 6-20 [facility] Comment on above: Performed By: #### C MP #### [facility] [address] [place] [address] Lactic Acidon 06-21-2018 Lactate molar conc 2.3 mmol/L Critically high 0.5-2.2 M [facility] Comment on above: Performed By: #### L ACID #### [facility] [address] [place] [address] Troponinon 06-21-2018 Troponin I.cardiac mass conc ng/mL Normal 0.000-0.01 [facility] Comment on above: Result Comment: Meth odology by Troponin T. Performed By: #### T ROP #### [facility] [address] [place] [address] XR CHEST PORTABLEon 06-22-19 XR CHEST PORTABLE [...] Dos Santos DO 06/21/18 Final result Normal [facility] Vital Signs Date Time Vital Sign Value Performing Clinician Facility 08-30-2023 01:30-0400 Diastolic blood pressure 102 mm[Hg] Kaylinn Dokken [facility] 08-30-2023 01:30-0400 Heart rate 85 /min Kaylinn Dokken [facility] 08-30-2023 01:30-0400 Mean blood pressure 113 mm[Hg] Kaylinn Dokken [facility] 08-30-2023 01:30-0400 Respiratory rate 18 /min Kaylinn Dokken [facility] 08-30-2023 01:30-0400 SaO2% (BldA) [Mass fraction] 98 % Kaylinn Dokken [facility] 08-30-2023 01:30-0400 Systolic blood pressure 135 mm[Hg] Kaylinn Dokken [facility] 08-30-2023 00:57-0400 Diastolic blood pressure 111 mm[Hg] Kaylinn Dokken [facility] 08-30-2023 00:57-0400 Heart rate 94 /min Kaylinn Dokken [facility] 08-30-2023 00:57-0400 Mean blood pressure 125 mm[Hg] Kaylinn Dokken [facility] 08-30-2023 00:57-0400 Respiratory rate 20 /min Kaylinn Dokken [facility] 08-30-2023 00:57-0400 SaO2% (BldA) [Mass fraction] 97 % Kaylinn Dokken [facility] 08-30-2023 00:57-0400 Systolic blood pressure 154 mm[Hg] Kaylinn Dokken [facility] 08-29-2023 23:14-0400 Diastolic blood pressure 110 mm[Hg] Kaylinn Dokken [facility] 08-29-2023 23:14-0400 Heart rate 84 /min Kaylinn Dokken [facility] 08-29-2023 23:14-0400 Systolic blood pressure 150 mm[Hg] Kaylinn Dokken [facility] 08-29-2023 22:48-0400 Body temperature 97.88 [degF] Kaylinn Dokken [facility] 08-29-2023 22:48-0400 Heart rate 99 /min Kaylinn Dokken [facility] 08-29-2023 22:48-0400 Respiratory rate 20 /min Kaylinn Dokken [facility] 08-29-2023 22:48-0400 SaO2% (BldA) [Mass fraction] 99 % Kaylinn Dokken [facility] 08-10-2023 07:29-0400 Body temperature 97.3 [degF] Diamante Cleveland Work Phone: [facility] 08-10-2023 07:29-0400 Diastolic blood pressure 92 mm[Hg] Diamante Cleveland Work Phone: [facility] 08-10-2023 07:29-0400 Heart rate 68 /min Diamante Cleveland Work Phone: [facility] 08-10-2023 07:29-0400 Respiratory rate 18 /min Diamante Cleveland Work Phone: [facility] 08-10-2023 07:29-0400 SaO2% (BldA) [Mass fraction] 97 % Diamante Cleveland Work Phone: [facility] 08-10-2023 07:29-0400 Systolic blood pressure 125 mm[Hg] Diamante Cleveland Work Phone: [facility] 08-07-2023 14:23-0400 Body height 157.48 cm Diamante Cleveland Work Phone: [facility] 08-06-2023 22:28-0400 Body weight 73.79 kg Diamante Cleveland Work Phone: [facility] 08-06-2023 20:35-0400 Diastolic blood pressure 80 mm[Hg] Eric Forbes [facility] 08-06-2023 20:35-0400 Heart rate 106 /min Eric Forbes [facility] 08-06-2023 20:35-0400 Mean blood pressure 92 mm[Hg] Eric Forbes [facility] 08-06-2023 20:35-0400 Respiratory rate 16 /min Eric Forbes [facility] 08-06-2023 20:35-0400 SaO2% (BldA) [Mass fraction] 96 % Eric Forbes [facility] 08-06-2023 20:35-0400 Systolic blood pressure 115 mm[Hg] Eric Forbes [facility] 08-06-2023 15:52-0400 Body temperature 98.78 [degF] Eric Forbes [facility] 08-06-2023 15:52-0400 Diastolic blood pressure 88 mm[Hg] Eric Forbes [facility] 08-06-2023 15:52-0400 Heart rate 104 /min Eric Frobes [facility] 08-06-2023 15:52-0400 Respiratory rate 18 /min Eric Forbes [facility] 08-06-2023 15:52-0400 SaO2% (BldA) [Mass fraction] 95 % Eric Forbes [facility] 08-06-2023 15:52-0400 Systolic blood pressure 130 mm[Hg] rEic Forbes [facility] 07-14-2023 11:01-0400 Blood Pressure Location Mike Rainer [facility] 07-14-2023 11:01-0400 Body temperature 97.34 [degF] Mike Spear [facility] 07-14-2023 11:01-0400 Diastolic blood pressure 88 mm[Hg] Mike Spear [facility] 07-14-2023 11:01-0400 Heart rate 71 /min Mike Spear [facility] 07-14-2023 11:01-0400 SaO2% (BldA) [Mass fraction] 98 % Mike Spear [facility] 07-14-2023 11:01-0400 Systolic blood pressure 138 mm[Hg] Mike Spear [facility] 07-05-2023 21:38-0400 Diastolic blood pressure 108 mm[Hg] Isai Hall [facility] 07-05-2023 21:38-0400 Heart rate 90 /min Isai Hall [facility] 07-05-2023 21:38-0400 Mean blood pressure 124 mm[Hg] Isairichard Hall [facility] 07-05-2023 21:38-0400 Respiratory rate 16 /min Isai Hall [facility] 07-05-2023 21:38-0400 SaO2% (BldA) [Mass fraction] 98 % Isai Hall [facility] 07-05-2023 21:38-0400 Systolic blood pressure 157 mm[Hg] Isai Hall [facility] 07-05-2023 10:38-0400 Body temperature 98.78 [degF] Isai Hall [facility] 07-05-2023 10:38-0400 Diastolic blood pressure 103 mm[Hg] Isai Hall [facility] 07-05-2023 10:38-0400 Heart rate 105 /min Isai Hall [facility] 07-05-2023 10:38-0400 Respiratory rate 20 /min Isai Hall [facility] 07-05-2023 10:38-0400 SaO2% (BldA) [Mass fraction] 97 % Isai Hall [facility] 07-05-2023 10:38-0400 Systolic blood pressure 145 mm[Hg] Isai Hall [facility] 07-03-2023 10:00-0400 Diastolic blood pressure 91 mm[Hg] Kaushik Samanta [facility] 07-03-2023 10:00-0400 Heart rate 85 /min Kaushik Samanta [facility] 07-03-2023 10:00-0400 Mean blood pressure 105 mm[Hg] Kaushik Samanta [facility] 07-03-2023 10:00-0400 Respiratory rate 15 /min Kaushik Samanta [facility] 07-03-2023 10:00-0400 SaO2% (BldA) [Mass fraction] 96 % Kaushik Samanta [facility] 07-03-2023 10:00-0400 Systolic blood pressure 133 mm[Hg] Kaushik Samanta [facility] 07-03-2023 09:00-0400 Diastolic blood pressure 102 mm[Hg] Kaushik Samanta [facility] 07-03-2023 09:00-0400 Heart rate 93 /min Kaushik Samanta [facility] 07-03-2023 09:00-0400 Mean blood pressure 113 mm[Hg] Kaushik Samanta [facility] 07-03-2023 09:00-0400 Systolic blood pressure 135 mm[Hg] Kaushik Samanta [facility] 07-03-2023 08:30-0400 Diastolic blood pressure 94 mm[Hg] Kaushik Samanta [facility] 07-03-2023 08:30-0400 Heart rate 98 /min Kaushik Samanta [facility] 07-03-2023 08:30-0400 Mean blood pressure 107 mm[Hg] Kaushik Samanta [facility] 07-03-2023 08:30-0400 Respiratory rate 12 /min Kaushik Sparks [facility] 07-03-2023 08:30-0400 SaO2% (BldA) [Mass fraction] 97 % Kaushik Sparks [facility] 07-03-2023 08:30-0400 Systolic blood pressure 132 mm[Hg] Kaushik Sparks [facility] 07-03-2023 08:04-0400 gluc 109 mg/dL Kaushik Sparks [facility] 07-03-2023 07:56-0400 Heart rate 101 /min Kaushik Sparks [facility] 07-03-2023 07:31-0400 Body temperature 98.6 [degF] Kaushik Sparks [facility] 07-03-2023 07:31-0400 Heart rate 122 /min Kaushik Sparks [facility] 07-03-2023 07:31-0400 Respiratory rate 18 /min Kaushik Sparks [facility] 06-30-2023 23:42-0400 Blood Pressure Location Isai Hall [facility] 06-30-2023 23:42-0400 Diastolic blood pressure 109 mm[Hg] Isai Hall [facility] 06-30-2023 23:42-0400 Heart rate 113 /min Isai Hall [facility] 06-30-2023 23:42-0400 Mean blood pressure 117 mm[Hg] Isai Hall [facility] 06-30-2023 23:42-0400 Respiratory rate 16 /min Isai Hall [facility] 06-30-2023 23:42-0400 SaO2% (BldA) [Mass fraction] 98 % Isai Rafael [facility] 06-30-2023 23:42-0400 Systolic blood pressure 133 mm[Hg] Isai Rafael [facility] 06-30-2023 20:47-0400 Blood Pressure Location Isai Rafael [facility] 06-30-2023 20:47-0400 Diastolic blood pressure 92 mm[Hg] Isai Rafael [facility] 06-30-2023 20:47-0400 Heart rate 113 /min Isai Rafael [facility] 06-30-2023 20:47-0400 Mean blood pressure 100 mm[Hg] Isai Rafael [facility] 06-30-2023 20:47-0400 Respiratory rate 16 /min Isai Rafael [facility] 06-30-2023 20:47-0400 SaO2% (BldA) [Mass fraction] 97 % Isai Rafael [facility] 06-30-2023 20:47-0400 Systolic blood pressure 115 mm[Hg] Isai Rafael [facility] 06-30-2023 19:46-0400 Respiratory rate 16 /min Isai Rafael [facility] 06-30-2023 18:00-0400 Heart rate 82 /min Isai Rafael [facility] 06-30-2023 18:00-0400 SaO2% (BldA) [Mass fraction] 94 % Isai Rafael [facility] 06-30-2023 16:30-0400 Diastolic blood pressure 105 mm[Hg] Isai Hall [facility] 06-30-2023 16:30-0400 Heart rate 61 /min Isai Hall [facility] 06-30-2023 16:30-0400 Systolic blood pressure 122 mm[Hg] Isai Hall [facility] 06-30-2023 15:30-0400 Heart rate 65 /min Isai Hall [facility] 06-30-2023 13:45-0400 Body temperature 98.6 [degF] Isai Hall [facility] 06-30-2023 13:45-0400 Heart rate 79 /min Isai Hall [facility] 06-17-2023 15:32-0400 Blood Pressure Location Mike Spear [facility] 06-17-2023 15:32-0400 Body temperature 98.24 [degF] Mike Spear [facility] 06-17-2023 15:32-0400 Diastolic blood pressure 84 mm[Hg] Mike Spear [facility] 06-17-2023 15:32-0400 Heart rate 73 /min Mike Spear [facility] 06-17-2023 15:32-0400 SaO2% (BldA) [Mass fraction] 93 % Mike Spear [facility] 06-17-2023 15:32-0400 Systolic blood pressure 128 mm[Hg] Mike Spear [facility] 06-03-2023 20:28-0400 Body temperature 98.24 [degF] Brettinn Dokken [facility] 06-03-2023 20:28-0400 Diastolic blood pressure 92 mm[Hg] Kaylinn Dokken [facility] 06-03-2023 20:28-0400 Heart rate 76 /min Neryylinn Dokken [facility] 06-03-2023 20:28-0400 SaO2% (BldA) [Mass fraction] 95 % Keelyn Dokken [facility] 06-03-2023 20:28-0400 Systolic blood pressure 149 mm[Hg] Keelyn Dokken [facility] 04-25-2023 20:12-0400 Diastolic blood pressure 74 mm[Hg] [employer] Amanda Robuck Work Phone: [facility] 04-25-2023 20:12-0400 Heart rate 108 /min [employer] Amanda Robuck Work Phone: [facility] 04-25-2023 20:12-0400 Respiratory rate 19 /min [employer] Amanda Robuck Work Phone: [facility] 04-25-2023 20:12-0400 SaO2% (BldA) [Mass fraction] 95 % [employer] Amanda Robuck Work Phone: [facility] 04-25-2023 20:12-0400 Systolic blood pressure 127 mm[Hg] [employer] Amanda Robuck Work Phone: [facility] 04-25-2023 17:45-0400 Body height 157.48 cm [employer] Amanda Robuck Work Phone: [facility] 04-25-2023 17:45-0400 Body temperature 97.8 [degF] [employer] Amanda Robuck Work Phone: [facility] 04-25-2023 17:45-0400 Body weight 72.2 kg [employer] Amanda Robuck Work Phone: [facility] 04-19-2023 22:01-0500 Body temperature 98.06 [degF] Kaylinn Dokken [facility] 04-19-2023 22:01-0500 Diastolic blood pressure 100 mm[Hg] Kaylinn Dokken [facility] 04-19-2023 22:01-0500 Heart rate 70 /min Kaylinn Dokken [facility] 04-19-2023 22:01-0500 Respiratory rate 25 /min Neryylinn Dokken [facility] 04-19-2023 22:01-0500 SaO2% (BldA) [Mass fraction] 99 % Neryylinn Dokken [facility] 04-19-2023 22:01-0500 Systolic blood pressure 135 mm[Hg] Neryylinn Dokken [facility] 04-08-2023 19:59-0500 Body height 157.48 cm [employer] Amanda Robuck Work Phone: [facility] 04-08-2023 19:59-0500 Body temperature 98.3 [degF] [employer] Amanda Robuck Work Phone: [facility] 04-08-2023 19:59-0500 Body weight 73 kg [employer] Amanda Robuck Work Phone: [facility] 04-08-2023 19:59-0500 Diastolic blood pressure 75 mm[Hg] [employer] Amanda Robuck Work Phone: [facility] 04-08-2023 19:59-0500 Heart rate 87 /min [employer] Amanda Robuck Work Phone: [facility] 04-08-2023 19:59-0500 Respiratory rate 21 /min [employer] Amanda Barrios Work Phone: [facility] 04-08-2023 19:59-0500 SaO2% (BldA) [Mass fraction] 100 % SHARK BIOLOGISTDesean Barrios Work Phone: [facility] 04-08-2023 19:59-0500 Systolic blood pressure 143 mm[Hg] [employer] Amanda Barrios Work Phone: [facility] 04-06-2023 21:12-0500 Diastolic blood pressure 93 mm[Hg] Diamante Cleveland Work Phone: [facility] 04-06-2023 21:12-0500 Heart rate 110 /min Diamante Cleveland Work Phone: [facility] 04-06-2023 21:12-0500 Respiratory rate 18 /min Diamante Cleveland Work Phone: [facility] 04-06-2023 21:12-0500 SaO2% (BldA) [Mass fraction] 93 % Diamante Cleveland Work Phone: [facility] 04-06-2023 21:12-0500 Systolic blood pressure 140 mm[Hg] Diamante Cleveland Work Phone: [facility] 04-06-2023 16:37-0500 Body height 157.48 cm Diamante Cleveland Work Phone: [facility] 04-06-2023 16:37-0500 Body temperature 97.9 [degF] Diamante Cleveland Work Phone: [facility] 04-06-2023 16:37-0500 Body weight 72 kg Diamante Cleveland Work Phone: [facility] 03-17-2023 11:19-0500 Diastolic blood pressure 84 mm[Hg] Diamante Cleveland Work Phone: [facility] 03-17-2023 11:19-0500 Heart rate 80 /min Diamante Cleveland Work Phone: [facility] 03-17-2023 11:19-0500 Respiratory rate 18 /min Diamante Cleveland Work Phone: [facility] 03-17-2023 11:19-0500 SaO2% (BldA) [Mass fraction] 99 % Diamante Cleveland Work Phone: [facility] 03-17-2023 11:19-0500 Systolic blood pressure 115 mm[Hg] Diamante Cleveland Work Phone: [facility] 03-17-2023 08:31-0500 Body height 157.48 cm Diamante Cleveland Work Phone: [facility] 03-17-2023 08:31-0500 Body temperature 98.1 [degF] Diamante Cleveland Work Phone: [facility] - [place] 03-17-2023 08:31-0500 Body weight 71.2 kg Diamante Cleveland Work Phone: [facility] 03-12-2023 15:51-0500 Heart rate 74 /min Diamante Cleveland Work Phone: [facility] 03-12-2023 15:48-0500 Body height 157.48 cm Diamante Cleveland Work Phone: [facility] 03-12-2023 15:48-0500 Body temperature 97.6 [degF] Diamante Cleveland Work Phone: [facility] 03-12-2023 15:48-0500 Body weight 71 kg Diamante Cleveland Work Phone: [facility] 03-12-2023 15:48-0500 Diastolic blood pressure 92 mm[Hg] Diamante Cleveland Work Phone: [facility] 01-30-2024 15:48-0500 Respiratory rate 16 /min Diamante Cleveland Work Phone: [facility] 03-12-2023 15:48-0500 SaO2% (BldA) [Mass fraction] 97 % Diamante Cleveland Work Phone: [facility] 03-12-2023 15:48-0500 Systolic blood pressure 128 mm[Hg] Diamante Cleveland Work Phone: [facility] 03-04-2023 19:06-0500 Body height 154.94 cm DO Ari More Work Phone: [facility] 03-04-2023 19:06-0500 Body temperature 97.8 [degF] DO Ari More Work Phone: [facility] 03-04-2023 19:06-0500 Body weight 71 kg DO Ari More Work Phone: [facility] 03-04-2023 19:06-0500 Diastolic blood pressure 97 mm[Hg] DO Ari More Work Phone: [facility] 03-04-2023 19:06-0500 Heart rate 89 /min DO Ari More Work Phone: [facility] 03-04-2023 19:06-0500 Respiratory rate 25 /min DO Ari Omre Work Phone: [facility] 03-04-2023 19:06-0500 SaO2% (BldA) [Mass fraction] 95 % DO Ari More Work Phone: [facility] 03-04-2023 19:06-0500 Systolic blood pressure 135 mm[Hg] DO Ari More Work Phone: [facility] 01-25-2023 06:21-0500 Diastolic blood pressure 68 mm[Hg] DO Ari More Work Phone: [facility] 01-25-2023 06:21-0500 Heart rate 88 /min DO Rai More Work Phone: [facility] 01-25-2023 06:21-0500 Respiratory rate 18 /min DO Ari More Work Phone: [facility] 01-25-2023 06:21-0500 SaO2% (BldA) [Mass fraction] 97 % DO Ari More Work Phone: [facility] 01-25-2023 06:21-0500 Systolic blood pressure 102 mm[Hg] DO Ari More Work Phone: [facility] 01-25-2023 01:01-0500 Body height 157.48 cm DO Ari More Work Phone: [facility] 01-25-2023 01:01-0500 Body temperature 98.9 [degF] DO Ari More Work Phone: [facility] 01-25-2023 01:01-0500 Body weight 65.77 kg DO Ari More Work Phone: [facility] 01-19-2023 12:00-0500 Diastolic blood pressure 89 mm[Hg] DO Ari More Work Phone: [facility] 01-19-2023 12:00-0500 Heart rate 82 /min DO Ari More Work Phone: [facility] 01-19-2023 12:00-0500 Respiratory rate 22 /min DO Ari More Work Phone: [facility] 01-19-2023 12:00-0500 SaO2% (BldA) [Mass fraction] 99 % DO Ari More Work Phone: [facility] 01-19-2023 12:00-0500 Systolic blood pressure 143 mm[Hg] DO Ari More Work Phone: [facility] 01-19-2023 10:33-0500 Body height 161.29 cm DO Ari More Work Phone: [facility] 01-19-2023 10:33-0500 Body temperature 97.7 [degF] DO Ari More Work Phone: [facility] 01-19-2023 10:33-0500 Body weight 71 kg DO Ari More Work Phone: [facility] 01-08-2023 13:57-0500 Body height 154.94 cm [employer] Amanda Robuck Work Phone: [facility] 01-08-2023 13:57-0500 Body temperature 98.1 [degF] [employer] Amanda Robuck Work Phone: [facility] 01-08-2023 13:57-0500 Body weight 71.2 kg [employer] Amanda Robuck Work Phone: [facility] 01-08-2023 13:57-0500 Diastolic blood pressure 88 mm[Hg] [employer] Amanda Robuck Work Phone: [facility] 01-08-2023 13:57-0500 Heart rate 100 /min [employer] Amanda Robuck Work Phone: [facility] 01-08-2023 13:57-0500 Respiratory rate 20 /min [employer] Amanda Robuck Work Phone: [facility] 01-08-2023 13:57-0500 SaO2% (BldA) [Mass fraction] 98 % [employer] Amanda Robuck Work Phone: [facility] 01-08-2023 13:57-0500 Systolic blood pressure 149 mm[Hg] [employer] Amanda Robuck Work Phone: [facility] 01-06-2023 14:00-0500 Heart rate 58 /min Azra HOGAN [facility] 01-06-2023 14:00-0500 Hourly Rounding Azra EDISON [facility] 01-06-2023 14:00-0500 Promise to Return Azra EDISON [facility] 01-06-2023 14:00-0500 Respiratory rate 12 /min Azra EDISON [facility] 01-06-2023 14:00-0500 SaO2% (BldA) [Mass fraction] 98 % Azra EDISON [facility] 01-06-2023 13:20-0500 Hourly Rounding Azra EDISON [facility] 01-06-2023 13:20-0500 Promise to Return Azra EDISON [facility] 01-06-2023 13:00-0500 Heart rate 56 /min Azra EDISON [facility] 01-06-2023 12:27-0500 Hourly Rounding Azra EDISON [facility] 01-06-2023 12:27-0500 Promise to Return Azra EDISON [facility] 01-06-2023 12:00-0500 Diastolic blood pressure 88 mm[Hg] Azra EDISON [facility] 01-06-2023 12:00-0500 Heart rate 66 /min Azra EDISON [facility] 01-06-2023 12:00-0500 Mean blood pressure 111 mm[Hg] Azra EDISON [facility] 01-06-2023 12:00-0500 SaO2% (BldA) [Mass fraction] 97 % Azra EDISON [facility] 01-06-2023 12:00-0500 Systolic blood pressure 158 mm[Hg] Azra EDISON [facility] 01-06-2023 10:00-0500 Diastolic blood pressure 105 mm[Hg] Azra EDISON [facility] 01-06-2023 10:00-0500 Mean blood pressure 117 mm[Hg] Azra EDISON [facility] 01-06-2023 10:00-0500 Systolic blood pressure 141 mm[Hg] Azra EDISON [facility] 01-06-2023 09:00-0500 Diastolic blood pressure 99 mm[Hg] Azra EDISON [facility] 01-06-2023 09:00-0500 Systolic blood pressure 153 mm[Hg] Azra EDISON [facility] 01-06-2023 08:00-0500 Body temperature 97.7 [degF] Azra EDISON [facility] 01-06-2023 04:00-0500 Body temperature 97.34 [degF] Azra EDISON [facility] 01-06-2023 00:00-0500 Body temperature 97.52 [degF] Azra EDISON [facility] 2023 07:08-0500 Heart rate 73 /min Azra EDISON [facility] 2023 05:54-0500 Blood Pressure Location Azra EDISON [facility] 2023 05:54-0500 Heart rate 72 /min Azra EDISON [facility] 2023 05:54-0500 Respiratory rate 12 /min Azra HOGAN [facility] 2023 01:56-0500 Heart rate 79 /min Azra HUMPHREYLIN [facility] 2023 00:53-0500 Respiratory rate 16 /min Azra HOGAN [facility] 01-02-2023 02:44-0500 Diastolic blood pressure 71 mm[Hg] Darren Megan [facility] 01-02-2023 02:44-0500 Heart rate 86 /min Darren Megan [facility] 01-02-2023 02:44-0500 Mean blood pressure 84 mm[Hg] Darren Megan [facility] 01-02-2023 02:44-0500 Respiratory rate 18 /min Darren Megan [facility] 01-02-2023 02:44-0500 SaO2% (BldA) [Mass fraction] 97 % Darren Megan [facility] 01-02-2023 02:44-0500 Systolic blood pressure 110 mm[Hg] Darren Megan [facility] 01-02-2023 00:43-0500 Body temperature 97.88 [degF] Darren Megan [facility] 01-02-2023 00:43-0500 Diastolic blood pressure 87 mm[Hg] Darren Megan [facility] 01-02-2023 00:43-0500 Heart rate 88 /min Darren Megan [facility] 01-02-2023 00:43-0500 Respiratory rate 16 /min Darren Megan [facility] 01-02-2023 00:43-0500 SaO2% (BldA) [Mass fraction] 97 % Darren Guzman [facility] 01-02-2023 00:43-0500 Systolic blood pressure 137 mm[Hg] Darren Guzman [facility] 12-16-2022 20:58-0500 Diastolic blood pressure 79 mm[Hg] Amy Steele MD Work Phone: [facility] 12-16-2022 20:58-0500 Heart rate 98 /min Amy Steele MD Work Phone: [facility] 12-16-2022 20:58-0500 Respiratory rate 20 /min Amy Steele MD Work Phone: [facility] 12-16-2022 20:58-0500 SaO2% (BldA) [Mass fraction] 98 % Amy Steele MD Work Phone: [facility] 12-16-2022 20:58-0500 Systolic blood pressure 116 mm[Hg] Amy Steele MD Work Phone: [facility] 12-15-2022 05:27-0400 Body temperature 97.2 [degF] Amy Steele MD Work Phone: [facility] 12-14-2022 21:01-0400 Body height 162.6 cm Amy Steele MD Work Phone: [facility] 12-14-2022 21:01-0400 Body mass index (BMI) [Ratio] 22.31 kg/m2 Amy Steele MD Work Phone: [facility] 12-14-2022 21:01-0400 Body weight 58.97 kg Amy Steele MD Work Phone: [facility] 12-11-2022 16:02-0400 Diastolic blood pressure 68 mm[Hg] [employer] Amanda Robuck Work Phone: [facility] 12-11-2022 16:02-0400 Heart rate 72 /min [employer] Amanda Robuck Work Phone: [facility] 12-11-2022 16:02-0400 Respiratory rate 18 /min [employer] Amanda Robuck Work Phone: [facility] 12-11-2022 16:02-0400 SaO2% (BldA) [Mass fraction] 96 % [employer] Amanda Robuck Work Phone: [facility] 12-11-2022 16:02-0400 Systolic blood pressure 117 mm[Hg] [employer] Amanda Robuck Work Phone: [facility] 12-11-2022 13:45-0400 Inhaled oxygen flow rate 2 L/min [employer]IST Amanda Robuck Work Phone: [facility] 12-11-2022 11:30-0400 Body height 165.1 cm [employer]IST Amanda Robuck Work Phone: [facility] 12-11-2022 11:30-0400 Body temperature 97.1 [degF] [employer] BI[employer]IST Amanda Robuck Work Phone: [facility] 12-11-2022 11:30-0400 Body weight 76.6 kg [employer]IST Amanda Robuck Work Phone: [facility] 12-10-2022 21:52-0400 Heart rate 89 /min Eric Forbes [facility] 12-10-2022 21:52-0400 Respiratory rate 19 /min Eric Forbes [facility] 12-10-2022 21:52-0400 SaO2% (BldA) [Mass fraction] 95 % Eric Forbes [facility] 10-30-2023 20:07-0400 Diastolic blood pressure 88 mm[Hg] Eric Leidy [facility] 12-10-2022 20:07-0400 Heart rate 90 /min Eric Leidy [facility] 12-10-2022 20:07-0400 Respiratory rate 18 /min Eric Leidy [facility] 12-10-2022 20:07-0400 SaO2% (BldA) [Mass fraction] 98 % Eric Leidy [facility] 12-10-2022 20:07-0400 Systolic blood pressure 138 mm[Hg] Eric Leidy [facility] 12-10-2022 18:30-0400 Heart rate 88 /min Eric Benavideze [facility] 12-10-2022 18:30-0400 Respiratory rate 18 /min Eric Leidy [facility] 12-10-2022 18:30-0400 SaO2% (BldA) [Mass fraction] 99 % Eric Leidy [facility] 12-10-2022 17:23-0400 Body temperature 98.42 [degF] Eric Leiyd [facility] 12-10-2022 17:23-0400 Diastolic blood pressure 101 mm[Hg] Eric Leidy [facility] 12-10-2022 17:23-0400 Systolic blood pressure 140 mm[Hg] Eric Leidy [facility] 12-10-2022 11:45-0400 Diastolic blood pressure 98 mm[Hg] Eric Leidy [facility] 12-10-2022 11:45-0400 Heart rate 96 /min Eric Leidy [facility] 12-10-2022 11:45-0400 Mean blood pressure 116 mm[Hg] Eric Leidy [facility] 12-10-2022 11:45-0400 Respiratory rate 18 /min Eric Leidy [facility] 12-10-2022 11:45-0400 SaO2% (BldA) [Mass fraction] 96 % Eric Leidy [facility] 12-10-2022 11:45-0400 Systolic blood pressure 153 mm[Hg] Eric Leidy [facility] 12-10-2022 10:29-0400 SaO2% (BldA) [Mass fraction] 93 % Eric Leidy [facility] 12-10-2022 10:15-0400 Diastolic blood pressure 82 mm[Hg] Eric Leidy [facility] 12-10-2022 10:15-0400 Heart rate 75 /min Eric Leidy [facility] 12-10-2022 10:15-0400 Mean blood pressure 95 mm[Hg] Eric Leidy [facility] 12-10-2022 10:15-0400 Respiratory rate 18 /min Eric Leidy [facility] 12-10-2022 10:15-0400 SaO2% (BldA) [Mass fraction] 93 % Eric Leidy [facility] 12-10-2022 10:15-0400 Systolic blood pressure 122 mm[Hg] Eric Leidy [facility] 12-10-2022 09:00-0400 Diastolic blood pressure 81 mm[Hg] Eric Leidy [facility] 12-10-2022 09:00-0400 Heart rate 65 /min Eric Forbes [facility] 12-10-2022 09:00-0400 Systolic blood pressure 123 mm[Hg] Eric Forbes [facility] 12-10-2022 08:01-0400 Body temperature 97.88 [degF] Eric Forbes [facility] 12-10-2022 08:01-0400 Heart rate 91 /min Eric Forbes [facility] 12-10-2022 08:01-0400 Respiratory rate 20 /min Eric Forbes [facility] 11-30-2022 13:30-0400 Blood Pressure Location CARRIE [employer] [facility] 11-30-2022 13:30-0400 Body temperature 98.6 [degF] CARRIE PEREZ [facility] 11-30-2022 13:30-0400 Diastolic blood pressure 82 mm[Hg] CARRIE [employer] [facility] 11-30-2022 13:30-0400 Heart rate 68 /min CARRIE [employer] [facility] 11-30-2022 13:30-0400 SaO2% (BldA) [Mass fraction] 98 % [employer] [facility] 11-30-2022 13:30-0400 Systolic blood pressure 138 mm[Hg] [employer] [facility] 11-04-2022 15:46-0400 Diastolic blood pressure 95 mm[Hg] [facility] 11-04-2022 15:46-0400 Heart rate 58 /min [facility] 11-04-2022 15:46-0400 Respiratory rate 16 /min [facility] 11-04-2022 15:46-0400 SaO2% (BldA) [Mass fraction] 98 % [facility] 11-04-2022 15:46-0400 Systolic blood pressure 153 mm[Hg] [facility] 11-04-2022 14:38-0400 Diastolic blood pressure 121 mm[Hg] [facility] 11-04-2022 14:38-0400 Heart rate 67 /min [facility] 11-04-2022 14:38-0400 Respiratory rate 18 /min [facility] 11-04-2022 14:38-0400 SaO2% (BldA) [Mass fraction] 98 % [facility] 11-04-2022 14:38-0400 Systolic blood pressure 176 mm[Hg] [facility] 11-04-2022 13:22-0400 Diastolic blood pressure 120 mm[Hg] [facility] 11-04-2022 13:22-0400 Heart rate 84 /min [facility] 11-04-2022 13:22-0400 Respiratory rate 18 /min [facility] 11-04-2022 13:22-0400 SaO2% (BldA) [Mass fraction] 99 % [facility] 11-04-2022 13:22-0400 Systolic blood pressure 180 mm[Hg] [facility] 11-04-2022 12:23-0400 Body temperature 97.7 [degF] [facility] 11-04-2022 12:23-0400 Heart rate 70 /min [facility] 09-06-2022 11:52-0400 Diastolic blood pressure 103 mm[Hg] LOGAN Barrios Work Phone: [facility] 09-06-2022 11:52-0400 Heart rate 76 /min SHARK BIOLOGISTDesean Barrios Work Phone: [facility] 09-06-2022 11:52-0400 Respiratory rate 18 /min SHARK BIOLOGISTDesean Barrios Work Phone: [facility] 09-06-2022 11:52-0400 SaO2% (BldA) [Mass fraction] 97 % SHARK BIOLOGISTDesean Barrios Work Phone: [facility] 09-06-2022 11:52-0400 Systolic blood pressure 159 mm[Hg] SHARK BIOLOGISTDesean Barrios Work Phone: [facility] 09-06-2022 10:16-0400 Body height 157.48 cm SHARK BIOLOGISTDesean Barrios Work Phone: [facility] 09-06-2022 10:16-0400 Body temperature 97.1 [degF] LOGAN Barrios Work Phone: [facility] 09-06-2022 10:16-0400 Body weight 71.4 kg SHARK BIOLOGISTDesean Barrios Work Phone: [facility] 08-28-2022 09:49-0400 Blood Pressure Location Lorie Gudimella [facility] 08-28-2022 09:49-0400 Body temperature 98.6 [degF] Lorie Gudimella [facility] 08-28-2022 09:49-0400 Diastolic blood pressure 60 mm[Hg] Lorie Gudimella [facility] 08-28-2022 09:49-0400 Heart rate 71 /min Lorie Gudimella [facility] 08-28-2022 09:49-0400 SaO2% (BldA) [Mass fraction] 96 % Lorie Gudimella [facility] 08-28-2022 09:49-0400 Systolic blood pressure 118 mm[Hg] Lorie Gudimella [facility] 08-18-2022 10:01-0400 Hourly Rounding Azra EDISON [facility] 08-18-2022 10:01-0400 Promise to Return Azra EDISON [facility] 08-18-2022 09:52-0400 Hourly Rounding Azra EDISON [facility] 08-18-2022 09:52-0400 Promise to Return Azra EDISON [facility] 08-18-2022 08:46-0400 Hourly Rounding Azra EDISON [facility] 08-18-2022 08:46-0400 Promise to Return Azra EDISON [facility] 08-18-2022 08:00-0400 Body temperature 98.06 [degF] Azra EDISON [facility] 08-18-2022 08:00-0400 Diastolic blood pressure 72 mm[Hg] Azra EDISON [facility] 08-18-2022 08:00-0400 Heart rate 65 /min Azra EDISON [facility] 08-18-2022 08:00-0400 SaO2% (BldA) [Mass fraction] 96 % Azra EDISON [facility] 08-18-2022 08:00-0400 Systolic blood pressure 120 mm[Hg] Azra EDISON [facility] 08-18-2022 00:00-0400 Body temperature 98.06 [degF] Azra EDISON [facility] 08-18-2022 00:00-0400 Diastolic blood pressure 68 mm[Hg] Azra EDISON [facility] 08-18-2022 00:00-0400 Heart rate 69 /min Azra EDISON [facility] 08-18-2022 00:00-0400 SaO2% (BldA) [Mass fraction] 98 % Azra EDISON [facility] 08-18-2022 00:00-0400 Systolic blood pressure 110 mm[Hg] Azra EDISON [facility] 08-17-2022 19:57-0400 Heart rate 74 /min Azramalorie JENSENSLIN [facility] 08-17-2022 19:57-0400 SaO2% (BldA) [Mass fraction] 97 % Azramalorie JENSENSLIN [facility] 08-17-2022 19:56-0400 Diastolic blood pressure 69 mm[Hg] Azra EDISON [facility] 08-17-2022 19:56-0400 Mean blood pressure 82 mm[Hg] Azra EDISON [facility] 08-17-2022 19:56-0400 Systolic blood pressure 109 mm[Hg] Azra EDISON [facility] 08-17-2022 19:55-0400 Body temperature 97.52 [degF] Azra EDISON [facility] 08-17-2022 16:22-0400 Mean blood pressure 124 mm[Hg] Azra EDISON [facility] 08-17-2022 11:47-0400 Mean blood pressure 82 mm[Hg] Azra EDISON [facility] 08-17-2022 11:46-0400 Body temperature 97.88 [degF] Azra EDISON [facility] 08-17-2022 08:20-0400 Body temperature 96.62 [degF] Azra EDISON [facility] 08-17-2022 06:50-0400 Blood Pressure Location Azramalorie JENSENSLIN [facility] 08-17-2022 06:50-0400 Heart rate 54 /min Azramalorie JENSENSLIN [facility] 08-17-2022 06:24-0400 Mean blood pressure 93 mm[Hg] Azramaolrie JENSENSLIN [facility] 08-17-2022 06:24-0400 Respiratory rate 11 /min Azra EDISON [facility] 08-17-2022 05:19-0400 Mean blood pressure 92 mm[Hg] Azra EDISON [facility] 08-17-2022 05:19-0400 Respiratory rate 31 /min Azra EDISON [facility] 08-17-2022 03:00-0400 Mean blood pressure 85 mm[Hg] Azra EDISON [facility] 08-17-2022 03:00-0400 Respiratory rate 32 /min Azra EDISON [facility] 08-17-2022 01:39-0400 Blood Pressure Location Azramalorie JENSENSLIN [facility] 08-17-2022 01:39-0400 Heart rate 64 /min Azramalorie JENSENSLIN [facility] 08-17-2022 01:39-0400 Respiratory rate 15 /min Azra EDISON [facility] 08-17-2022 01:24-0400 Body temperature 97.16 [degF] Azramalorie JENSENSLIN [facility] 08-17-2022 01:24-0400 Heart rate 62 /min Azramalorie JENSENSLIN [facility] 08-16-2022 23:47-0400 Body temperature 96.62 [degF] Azramalorie JENSENSLIN [facility] 08-16-2022 23:47-0400 Respiratory rate 23 /min Azramalorie JENSENSLIN [facility] 08-13-2022 13:26-0400 Diastolic blood pressure 88 mm[Hg] Amanda ROBUCK [facility] 08-13-2022 13:26-0400 Mean blood pressure 101 mm[Hg] Amanda ROBUCK [facility] 08-13-2022 13:26-0400 Systolic blood pressure 128 mm[Hg] Amanda ROBUCK [facility] 08-13-2022 12:58-0400 Blood Pressure Location Amanda ROBUCK [facility] 08-13-2022 12:58-0400 Diastolic blood pressure 107 mm[Hg] Amanda ROBUCK [facility] 08-13-2022 12:58-0400 Heart rate 84 /min Amanda ROBUCK [facility] 08-13-2022 12:58-0400 SaO2% (BldA) [Mass fraction] 99 % Amanda ROBUCK [facility] 08-13-2022 12:58-0400 Systolic blood pressure 167 mm[Hg] Amanda ROBUCK [facility] 06-10-2022 07:30-0400 Body temperature 97.5 [degF] SH[employer] BIOLOGIST Amanda Robuck Work Phone: [facility] 06-10-2022 07:30-0400 Diastolic blood pressure 92 mm[Hg] SHARK BIOLOGIST Amanda Robuck Work Phone: [facility] 06-10-2022 07:30-0400 Heart rate 78 /min [employer] BIOLOGIST Amanda Robuck Work Phone: [facility] 06-10-2022 07:30-0400 Respiratory rate 18 /min [employer] BIOLOGIST Amanda Robuck Work Phone: [facility] 06-10-2022 07:30-0400 SaO2% (BldA) [Mass fraction] 97 % [employer] BIOLOGIST Amanda Robuck Work Phone: [facility] 06-10-2022 07:30-0400 Systolic blood pressure 132 mm[Hg] SHARK BIOLOGIST Amanda Robuck Work Phone: [facility] 06-08-2022 14:09-0400 Body height 157.48 cm SHARK BIOLOGIST Amanda Robuck Work Phone: [facility] 06-07-2022 17:31-0400 Body weight 72.57 kg [employer]IST Amanda Robuck Work Phone: [facility] 06-07-2022 15:22-0400 Diastolic blood pressure 91 mm[Hg] SHARK BIOLOGIST Amanda Robuck Work Phone: [facility] 06-07-2022 15:22-0400 Heart rate 90 /min SHARK BIOLOGIST Amanda Robuck Work Phone: [facility] 06-07-2022 15:22-0400 Respiratory rate 24 /min SHARK BIOLOGISTDesean Barrios Work Phone: [facility] 06-07-2022 15:22-0400 SaO2% (BldA) [Mass fraction] 97 % SHARK BIOLOGISTDesean Barrios Work Phone: [facility] 06-07-2022 15:22-0400 Systolic blood pressure 151 mm[Hg] SHARK BIOLOGISTDesean Barrios Work Phone: [facility] 06-07-2022 08:57-0400 Body height 157.48 cm LOGAN Barrios Work Phone: [facility] 06-07-2022 08:57-0400 Body temperature 98.3 [degF] LOGAN Barrios Work Phone: [facility] 06-07-2022 08:57-0400 Body weight 73.02 kg OLGAN Barrios Work Phone: [facility] 04-24-2022 14:45-0400 Body height 160.02 cm Imad Asaad Other [facility] [employer] Other 04-24-2022 14:45-0400 Body mass index (BMI) [Ratio] 29.23 kg/m2 Imad Asaad Other [employer] Other 04-24-2022 14:45-0400 Body weight 74.84 kg Imad Asaad Other [employer] Other 04-24-2022 14:45-0400 Diastolic blood pressure 56 mm[Hg] Imad Asaad Other [employer] Other 04-24-2022 14:45-0400 Systolic blood pressure 109 mm[Hg] Imad Asaad Other [facility] [employer] Other 04-11-2022 11:11-0500 Diastolic blood pressure 70 mm[Hg] SHARK BIOLOGIST Amanda Robuck Work Phone: [facility] 04-11-2022 11:11-0500 Heart rate 72 /min SHARK BIOLOGIST Amanda Robuck Work Phone: [facility] 04-11-2022 11:11-0500 Respiratory rate 16 /min SHARK BIOLOGIST Amanda Robuck Work Phone: [facility] 04-11-2022 11:11-0500 SaO2% (BldA) [Mass fraction] 98 % SHARK BIOLOGIST Amanda Robuck Work Phone: [facility] 04-11-2022 11:11-0500 Systolic blood pressure 148 mm[Hg] SHARK BIOLOGIST Amanda Robuck Work Phone: [facility] 04-11-2022 08:29-0500 Body height 157.48 cm SHARK BIOLOGIST Amanda Robuck Work Phone: [facility] 04-11-2022 08:29-0500 Body temperature 97.5 [degF] SHARK BIOLOGIST Amanda Robuck Work Phone: [facility] 04-11-2022 08:29-0500 Body weight 74.84 kg SHARK BIOLOGIST Amanda Robuck Work Phone: [facility] 04-04-2022 09:31-0500 Diastolic blood pressure 59 mm[Hg] SHARK BIOLOGIST Amanda Robuck Work Phone: [facility] 04-04-2022 09:31-0500 Heart rate 85 /min SHARK BIOLOGIST Amanda Robuck Work Phone: [facility] 04-04-2022 09:31-0500 Respiratory rate 20 /min SHARK BIOLOGIST Amanda Robuck Work Phone: [facility] 04-04-2022 09:31-0500 SaO2% (BldA) [Mass fraction] 93 % SHARK BIOLOGIST Amanda Robuck Work Phone: [facility] 04-04-2022 09:31-0500 Systolic blood pressure 110 mm[Hg] SHARK BIOLOGIST Amanda Robuck Work Phone: [facility] 04-03-2022 21:50-0500 Body height 170.18 cm SHARK BIOLOGIST Amanda Robuck Work Phone: [facility] 04-03-2022 21:50-0500 Body weight 81.6 kg SHARK BIOLOGIST Amanda Robuck Work Phone: [facility] 04-03-2022 21:50-0500 Inhaled oxygen flow rate 15 L/min SHARK BIOLOGIST Amanda Robuck Work Phone: [facility] 04-03-2022 08:06-0500 Body height 157.48 cm SHARK BIOLOGIST Amanda Robuck Work Phone: [facility] 04-03-2022 08:06-0500 Body temperature 96.9 [degF] SHARK BIOLOGIST Amanda Robuck Work Phone: [facility] 04-03-2022 08:06-0500 Body weight 74.84 kg SHARK BIOLOGIST Amanda Robuck Work Phone: [facility] 04-03-2022 08:06-0500 Diastolic blood pressure 86 mm[Hg] SHARK BIOLOGIST Amanda Robuck Work Phone: [facility] 04-03-2022 08:06-0500 Heart rate 74 /min SHARK BIOLOGIST Amanda Robuck Work Phone: [facility] 04-03-2022 08:06-0500 Respiratory rate 18 /min SHARK BIOLOGIST Amanda Robuck Work Phone: [facility] 04-03-2022 08:06-0500 SaO2% (BldA) [Mass fraction] 98 % SHARK BIOLOGIST Amanda Robuck Work Phone: [facility] 04-03-2022 08:06-0500 Systolic blood pressure 124 mm[Hg] SHARK BIOLOGIST Amanda Robuck Work Phone: [facility] 04-01-2022 18:19-0500 Body height 157.48 cm SHARK BIOLOGIST Amanda Robuck Work Phone: [facility] 04-01-2022 18:19-0500 Body temperature 99.4 [degF] SHARK BIOLOGIST Amanda Robuck Work Phone: [facility] 04-01-2022 18:19-0500 Body weight 74.84 kg SHARK BIOLOGIST Amanda Robuck Work Phone: [facility] 04-01-2022 18:19-0500 Diastolic blood pressure 99 mm[Hg] SHARK BIOLOGIST Amanda Robuck Work Phone: [facility] 04-01-2022 18:19-0500 Heart rate 111 /min SHARK BIOLOGIST Amanda Robuck Work Phone: [facility] 04-01-2022 18:19-0500 Respiratory rate 18 /min SHARK BIOLOGIST Amanda Robuck Work Phone: [facility] 04-01-2022 18:19-0500 SaO2% (BldA) [Mass fraction] 100 % SHARK BIOLOGIST Amanda Robuck Work Phone: [facility] 04-01-2022 18:19-0500 Systolic blood pressure 143 mm[Hg] SHARK BIOLOGIST Amanda Robuck Work Phone: [facility] 03-19-2022 06:50-0500 Diastolic blood pressure 78 mm[Hg] SHARK BIOLOGIST Amanda Robuck Work Phone: [facility] 03-19-2022 06:50-0500 Heart rate 82 /min SHARK BIOLOGIST Amanda Robuck Work Phone: [facility] 03-19-2022 06:50-0500 Respiratory rate 18 /min SHARK BIOLOGIST Amanda Robuck Work Phone: [facility] 03-19-2022 06:50-0500 SaO2% (BldA) [Mass fraction] 99 % SHARK BIOLOGISTDesean Barrios Work Phone: [facility] 03-19-2022 06:50-0500 Systolic blood pressure 124 mm[Hg] LOGAN Barrios Work Phone: [facility] 03-19-2022 05:27-0500 Body height 157.48 cm SHARK BIOLOGISTDesean Barrios Work Phone: [facility] 03-19-2022 05:27-0500 Body temperature 97 [degF] LOGAN Barrios Work Phone: [facility] 03-19-2022 05:27-0500 Body weight 74.84 kg SHARK BIOLOGISTDesean Barrios Work Phone: [facility] 03-13-2022 12:59-0500 Body temperature 98.8 [degF] Declan Goel MD Work Phone: [employer] 03-13-2022 12:58-0500 Diastolic blood pressure 92 mm[Hg] Declan Goel MD Work Phone: [employer] 03-13-2022 12:58-0500 Systolic blood pressure 131 mm[Hg] Declan Goel MD Work Phone: [employer] 03-13-2022 12:57-0500 Heart rate 114 /min Declan Goel MD Work Phone: [employer] 03-13-2022 12:57-0500 Respiratory rate 28 /min Declan Goel MD Work Phone: [employer] 03-13-2022 12:57-0500 SaO2% (BldA) [Mass fraction] 92 % Declan Goel MD Work Phone: [employer] 03-13-2022 03:48-0500 Diastolic blood pressure 76 mm[Hg] Phu Barker DO Work Phone: [employer] 03-13-2022 03:48-0500 Heart rate 105 /min Phu Barker DO Work Phone: [employer] 03-13-2022 03:48-0500 Respiratory rate 16 /min Phu Barker DO Work Phone: [employer] 03-13-2022 03:48-0500 SaO2% (BldA) [Mass fraction] 95 % Phu Barker DO Work Phone: [employer] 03-13-2022 03:48-0500 Systolic blood pressure 133 mm[Hg] Phu Barker DO Work Phone: [employer] 03-12-2022 23:32-0500 Body temperature 98.4 [degF] Phu Barker DO Work Phone: [employer] 03-12-2022 14:08-0500 Body height 154.9 cm Phu Barker DO Work Phone: [employer] 03-12-2022 14:08-0500 Body mass index (BMI) [Ratio] 30.23 kg/m2 Phu Barker DO Work Phone: [employer] 03-12-2022 14:08-0500 Body weight 72.58 kg Phu Barker DO Work Phone: [facility] [employer] 03-09-2022 07:03-0500 Body height 157.48 cm SHARK BIOLOGISTDesean Patel Robuck Work Phone: [facility] 03-09-2022 07:03-0500 Body temperature 97.1 [degF] LOGAN Patel Robuck Work Phone: [facility] 03-09-2022 07:03-0500 Body weight 78.6 kg SHARK BIOLOGISTDesean Patel Robuck Work Phone: [facility] 03-09-2022 07:03-0500 Diastolic blood pressure 82 mm[Hg] SHARK BIOLOGIST Amanda Robuck Work Phone: [facility] 03-09-2022 07:03-0500 Heart rate 73 /min SHARK BIOLOGIST Amanda Robuck Work Phone: [facility] 03-09-2022 07:03-0500 Respiratory rate 18 /min SHARK BIOLOGIST Amanda Robuck Work Phone: [facility] 03-09-2022 07:03-0500 SaO2% (BldA) [Mass fraction] 98 % SHARK BIOLOGIST Amanda Robuck Work Phone: [facility] 03-09-2022 07:03-0500 Systolic blood pressure 134 mm[Hg] SHARK BIOLOGIST Amanda Robuck Work Phone: [facility] 03-05-2022 20:34-0500 Diastolic blood pressure 79 mm[Hg] SHARK BIOLOGIST Amanda Robuck Work Phone: [facility] 03-05-2022 20:34-0500 Heart rate 82 /min SHARK BIOLOGIST Amanda Robuck Work Phone: [facility] 03-05-2022 20:34-0500 Respiratory rate 23 /min SHARK BIOLOGIST Amanda Robuck Work Phone: [facility] 03-05-2022 20:34-0500 SaO2% (BldA) [Mass fraction] 100 % SHARK BIOLOGIST Amanda Robuck Work Phone: [facility] 03-05-2022 20:34-0500 Systolic blood pressure 126 mm[Hg] SHARK BIOLOGIST Amanda Robuck Work Phone: [facility] 03-05-2022 13:40-0500 Body height 157.48 cm SHARK BIOLOGIST Amanda Robuck Work Phone: [facility] 03-05-2022 13:40-0500 Body temperature 97.8 [degF] SHARK BIOLOGIST Amanda Robuck Work Phone: [facility] 03-05-2022 13:40-0500 Body weight 77.11 kg SHARK BIOLOGIST Amanda Robuck Work Phone: [facility] 02-21-2022 07:20-0500 Diastolic blood pressure 70 mm[Hg] SHARK BIOLOGIST Amanda Robuck Work Phone: [facility] 02-21-2022 07:20-0500 Heart rate 89 /min SHARK BIOLOGIST Amanda Robuck Work Phone: [facility] 02-21-2022 07:20-0500 Respiratory rate 16 /min SHARK BIOLOGIST Amanda Robuck Work Phone: [facility] 02-21-2022 07:20-0500 SaO2% (BldA) [Mass fraction] 93 % SHARK BIOLOGIST Amanda Robuck Work Phone: [facility] 02-21-2022 07:20-0500 Systolic blood pressure 127 mm[Hg] SHARK BIOLOGIST Amanda Robuck Work Phone: [facility] 02-20-2022 19:43-0500 Body temperature 97.1 [degF] SHARK BIOLOGIST Amanda Robuck Work Phone: [facility] 02-20-2022 18:51-0500 Body height 157.48 cm SHARK BIOLOGIST Amanda Robuck Work Phone: [facility] 02-20-2022 18:51-0500 Body weight 78.9 kg SHARK BIOLOGIST Amanda Robuck Work Phone: [facility] 02-19-2022 11:20-0500 Body height 157.48 cm SHARK BIOLOGIST Amanda Robuck Work Phone: [facility] 02-19-2022 11:20-0500 Body temperature 98 [degF] SHARK BIOLOGIST Amanda Robuck Work Phone: [facility] 02-19-2022 11:20-0500 Body weight 79.15 kg SHARK BIOLOGIST Amanda Robuck Work Phone: [facility] 02-19-2022 11:20-0500 Diastolic blood pressure 95 mm[Hg] SHARK BIOLOGIST Amanda Robuck Work Phone: [facility] 02-19-2022 11:20-0500 Heart rate 94 /min SHARK BIOLOGIST Amanda Robuck Work Phone: [facility] 02-19-2022 11:20-0500 Respiratory rate 18 /min SHARK BIOLOGIST Amanda Robuck Work Phone: [facility] 02-19-2022 11:20-0500 SaO2% (BldA) [Mass fraction] 95 % SHARK BIOLOGIST Amanda Robuck Work Phone: [facility] 02-19-2022 11:20-0500 Systolic blood pressure 149 mm[Hg] SHARK BIOLOGIST Amanda Robuck Work Phone: [facility] 10-06-2021 16:23-0400 Diastolic blood pressure 81 mm[Hg] [...] 09-19-2021 10:16-0400 Blood Pressure Location Amanda ROBUCK [facility] 09-19-2021 10:16-0400 Diastolic blood pressure 78 mm[Hg] Amanda ROBUCK [facility] 09-19-2021 10:16-0400 Heart rate 86 /min Amanda BARRIOS [facility] 09-19-2021 10:16-0400 Systolic blood pressure 114 mm[Hg] Amanda ROBUCK [facility] 07-26-2021 21:00-0400 Diastolic blood pressure 98 mm[Hg] Isai Hall [facility] 07-26-2021 21:00-0400 Heart rate 86 /min Isai Hall [facility] 07-26-2021 21:00-0400 Mean blood pressure 106 mm[Hg] Isai Hall [facility] 07-26-2021 21:00-0400 Respiratory rate 18 /min Isai Hall [facility] 07-26-2021 21:00-0400 SaO2% (BldA) [Mass fraction] 100 % Isai Hall [facility] 07-26-2021 21:00-0400 Systolic blood pressure 123 mm[Hg] Isai Rafael [facility] 07-26-2021 20:00-0400 Hourly Rounding Isai Hall [facility] 07-26-2021 20:00-0400 Nursing Progress Note Reason Other: TO ct Isai Hall [facility] 07-26-2021 20:00-0400 Promise to Return Isai Rafael [facility] 07-26-2021 19:00-0400 Hourly Rounding Isai Hall [facility] 07-26-2021 19:00-0400 Promise to Return Isai Hall [facility] 07-26-2021 18:11-0400 Body temperature 98.24 [degF] Isai Hall [facility] 07-26-2021 18:11-0400 Diastolic blood pressure 103 mm[Hg] Isai Hall [facility] 07-26-2021 18:11-0400 Heart rate 103 /min Isai Hall [facility] 07-26-2021 18:11-0400 Respiratory rate 16 /min Isai Hall [facility] 07-26-2021 18:11-0400 SaO2% (BldA) [Mass fraction] 97 % Isai Hall [facility] 07-26-2021 18:11-0400 Systolic blood pressure 118 mm[Hg] Isai Hall [facility] 07-04-2021 15:06-0400 Diastolic blood pressure 77 mm[Hg] Amanda ROBUCK [facility] 07-04-2021 15:06-0400 Heart rate 86 /min Amanda ROBUCK [facility] 07-04-2021 15:06-0400 Systolic blood pressure 122 mm[Hg] Amanda ROBUCK [facility] 05-03-2021 10:00-0400 Diastolic blood pressure 86 mm[Hg] Zaire Osuna MD Work Phone: [facility] 05-03-2021 10:00-0400 Systolic blood pressure 131 mm[Hg] Zaire Osuna MD Work Phone: [facility] 05-03-2021 09:31-0400 Body height 157.5 cm Zaire Osuna MD Work Phone: [facility] 05-03-2021 09:31-0400 Body mass index (BMI) [Ratio] 31.09 kg/m2 Zaire Osuna MD Work Phone: [facility] 05-03-2021 09:31-0400 Body temperature 98.2 [degF] Zaire Osuna MD Work Phone: [facility] 05-03-2021 09:31-0400 Body weight 77.11 kg Zaire Osuna MD Work Phone: [facility] 05-03-2021 09:31-0400 Heart rate 103 /min Zaire Osuna MD Work Phone: [facility] 05-03-2021 09:31-0400 Respiratory rate 16 /min Zaire Osuna MD Work Phone: [facility] 05-03-2021 09:31-0400 SaO2% (BldA) [Mass fraction] 96 % Zaire Osuna MD Work Phone: [facility] 05-03-2021 03:17-0400 Diastolic blood pressure 76 mm[Hg] Declan Bradshaw MD Work Phone: [facility] 05-03-2021 03:17-0400 Heart rate 86 /min Declan Bradshaw MD Work Phone: [facility] 05-03-2021 03:17-0400 SaO2% (BldA) [Mass fraction] 98 % Declan Bradshaw MD Work Phone: [facility] 05-03-2021 03:17-0400 Systolic blood pressure 107 mm[Hg] Declan Bradshaw MD Work Phone: [facility] 05-02-2021 23:07-0400 Body temperature 98.71 [degF] Declan Bradshaw MD Work Phone: [facility] 05-02-2021 23:04-0400 Body mass index (BMI) [Ratio] 31.09 kg/m2 Declan Bradshaw MD Work Phone: [facility] 05-02-2021 23:04-0400 Body weight 77.11 kg Declan Bradshaw MD Work Phone: [facility] 05-02-2021 23:04-0400 Respiratory rate 20 /min Declan Bradshaw MD Work Phone: [facility] 09-22-2020 19:10-0400 Body height 157.4 cm Elvis Ghazarian Other Phone: [facility] 09-22-2020 19:10-0400 Body temperature 96.08 [degF] Elvis Ghazarian Other Phone: [facility] 09-22-2020 19:10-0400 Diastolic blood pressure 99 mm[Hg] Elvis Ghazarian Other Phone: [facility] 09-22-2020 19:10-0400 Heart rate 90 /min Elvis Ghazarian Other Phone: [facility] 09-22-2020 19:10-0400 Respiratory rate 20 /min Elvis Ghazarian Other Phone: [facility] 09-22-2020 19:10-0400 SaO2% (BldA) [Mass fraction] 97 % Elvis Ghazarian Other Phone: [facility] 09-22-2020 19:10-0400 Systolic blood pressure 131 mm[Hg] Elvis Ghazarian Other Phone: [facility] 03-11-2020 22:20-0500 Pulse (Heart Rate) 95 /min Crescencio Emanuel [place] 03-11-2020 22:20-0500 Pulse Oximetry 98 % Crescencio [facility] [place] 03-11-2020 22:14-0500 BMI (Body Mass Index) 32.74 kg/m2 Cres[facility]encio [facility] [place] 03-11-2020 22:14-0500 Body weight 81.19 kg Crescencio [facility] [place] 03-11-2020 22:14-0500 Height 157.5 cm Crescencio [facility] [place] 03-11-2020 22:08-0500 Body Temperature 99.3 [degF] [facility] [place] 03-11-2020 22:08-0500 BP Diastolic 81 mm[Hg] [facility] [place] 03-11-2020 22:08-0500 BP Systolic 121 mm[Hg] [facility] [place] 03-11-2020 22:08-0500 Respiratory Rate 18 /min Crescencio [facility] [place] 03-10-2020 15:50-0500 BMI (Body Mass Index) 32.74 kg/m2 [facility] [place] 03-10-2020 15:50-0500 Body Temperature 98.01 [degF] [facility] [place] [place] 03-10-2020 15:50-0500 Body weight 81.19 kg [facility] [place] 03-10-2020 15:50-0500 BP Diastolic 79 mm[Hg] [facility] Carlito [facility] [place] [place] 03-10-2020 15:50-0500 BP Systolic 119 mm[Hg] [facility] [place] [place] 03-10-2020 15:50-0500 [facility] [place] [place] 03-10-2020 15:50-0500 Pulse (Heart Rate) 78 /min [facility] [place] 03-10-2020 15:50-0500 Pulse Oximetry 97 % [facility] [place] 03-10-2020 15:50-0500 Respiratory Rate 20 /min Veselin Carlito [place] 02-24-2019 12:47-0500 BMI (Body Mass Index) 310.02 kg/m2 Nini Wolf [facility] Work Phone: 02-24-2019 12:47-0500 Body weight 768.85 kg Nini Wolf [facility] Work Phone: 02-24-2019 12:47-0500 BP Diastolic 80 mm[Hg] Nini Wolf [facility] Work Phone: Comment on above: Location: LUE; Position: Sitting 02-24-2019 12:47-0500 BP Systolic 134 mm[Hg] Nini Wolf [facility] rnal Medicine Work Phone: Comment on above: Location: LUE; Position: Sitting 02-24-2019 12:47-0500 BSA (Body Surface Area) 4.74 m2 Nini Wolf [facility] Work Phone: 02-24-2019 12:47-0500 Height 157.48 cm Nini Wolf [facility] Work Phone: 02-24-2019 12:47-0500 Pulse (Heart Rate) 80 /min Nini Wolf [facility]ternal Medicine Work Phone: 02-17-2019 12:24-0500 BMI (Body Mass Index) 30 kg/m2 Nini Wolf [facility] Work Phone: 02-17-2019 12:24-0500 Body weight 74.39 kg Nini Wolf [facility] Work Phone: 02-17-2019 12:24-0500 BP Diastolic 84 mm[Hg] Nini Wolf [facility] Work Phone: 02-17-2019 12:24-0500 BP Systolic 130 mm[Hg] Nini Wolf [facility] Work Phone: 02-17-2019 12:24-0500 BSA (Body Surface Area) 1.76 m2 Nini Wolf [facility] Work Phone: 02-17-2019 12:24-0500 Height 157.48 cm Nini Wolf [facility] Work Phone: 02-17-2019 12:24-0500 Pulse (Heart Rate) 76 /min Nini Wolf [facility] Medicine Work Phone: 12-20-2018 21:49-0500 BP Diastolic 68 mm[Hg] [facility] [place] 12-20-2018 21:49-0500 BP Systolic 116 mm[Hg] [facility] [place] 12-20-2018 21:49-0500 Pulse Oximetry 98 % [facility] , [place] 12-20-2018 21:04-0500 BMI (Body Mass Index) 29.48 kg/m2 [facility], [place] 12-20-2018 21:04-0500 Body Temperature 97.5 [degF] [facility] [place] 12-20-2018 21:04-0500 Body weight 70.76 kg Luis [facility] [place] 12-20-2018 21:04-0500 Height 154.9 cm [facility] [place] 12-20-2018 21:04-0500 Pulse (Heart Rate) 93 /min Luis [facility] [place] 12-20-2018 21:04-0500 Respiratory Rate 20 /min [facility] [place] 11-01-2018 17:40-0400 BP Diastolic 93 mm[Hg] [facility] [place] 11-01-2018 17:40-0400 BP Systolic 143 mm[Hg] [facility] [place] 11-01-2018 17:37-0400 BMI (Body Mass Index) 28.89 kg/m2 [facility] [place] 11-01-2018 17:37-0400 Body Temperature 97.9 [degF] [facility] [place] 11-01-2018 17:37-0400 Body weight 69.36 kg [facility], [place] 11-01-2018 17:37-0400 Height 154.9 cm [facility] [place] 11-01-2018 17:37-0400 Pulse (Heart Rate) 84 /min Mundo Boggs [facility], [place] 11-01-2018 17:37-0400 Pulse Oximetry 99 % [facility] [place] 11-01-2018 17:37-0400 Respiratory Rate 18 /min [facility] [place] Encounters Encounter Date Encounter Type Care Provider Facility Start: 08-29-2023 End: 08-30-2023 Emergency department patient visit Kerry Linton [facility] Start: 08-29-2023 End: 08-29-2023 ambulatory Birgit Aiken Facility:[facility] Start: 08-29-2023 End: 08-29-2023 Patient encounter procedure Birgit Aiken [facility] Start: 08-21-2023 ambulatory Amanda E JOANA Facility :[facility] Start: 08-12-2023 ambulatory Amanda E ROBUCK Facility :CD:[id number] Start: 08-07-2023 Non-patient / Non-visit Diamantesachi [place] Work Phone: [facility] Work Phone: Start: 08-06-2023 End: 08-10-2023 Evaluation and management of inpatient Diamante [place] Work Phone: [facility] Work Phone: Start: 08-06-2023 End: 08-06-2023 Emergency department patient visit Eric Forbes [facility] Start: 08-06-2023 ambulatory Gautam Burrows Facility:[facility] Start: 07-14-2023 End: 07-14-2023 Lab Drop off Mike Spear [facility] Start: 07-14-2023 End: 07-14-2023 ambulatory Mike Spear Facility:[facility] Start: 07-14-2023 End: 07-14-2023 Patient encounter procedure Mike Spear [facility] Start: 07-05-2023 Emergency department patient visit Isai Hall Facility:[facility] Start: 07-05-2023 Registered Recurring Diamante bergeron Work Phone: [facility] Start: 07-05-2023 End: 07-05-2023 Emergency department patient visit Isai Hall [facility] Start: 07-03-2023 End: 07-03-2023 Emergency department patient visit Kaushik Sparks Facility:[facility] Start: 07-03-2023 End: 07-03-2023 Emergency department patient visit Kaushik Samanta [facility] Start: 06-30-2023 End: 07-01-2023 Emergency department patient visit Isai Hall Facility:[facility] Start: 06-30-2023 End: 06-30-2023 Emergency department patient visit Isai Hall [facility] Start: 06-20-2023 ambulatory Amanda BARRIOS Facility :[facility] Start: 06-17-2023 End: 06-18-2023 ambulatory Mike Spear Facility:[facility] Start: 06-17-2023 End: 06-17-2023 Lab Drop off Mike Spear [facility] Start: 06-17-2023 End: 06-17-2023 Patient encounter procedure Mike Spear [facility] Start: 06-17-2023 ambulatory Mike YasmineCharisma Spear Facili ty:[facility] Start: 06-10-2023 ambulatory Amanda E ROBUCK Facility :[facility] Start: 06-04-2023 ambulatory Amanda E ROBUCK Facility :[facility] Start: 06-03-2023 End: 06-04-2023 Emergency department patient visit Kerry Linton Facility:[facility] Start: 06-03-2023 End: 06-03-2023 Emergency department patient visit Kerry Linton [facility] Start: 05-01-2023 ambulatory Amanda E ANTWONUCK Facility :[facility] Start: 04-25-2023 End: 04-25-2023 Emergency department patient visit LOGAN Barrios Work Phone: [facility] Work Phone: Start: 04-19-2023 End: 04-20-2023 Emergency department patient visit Kerry Linton Facility:[facility] Start: 04-19-2023 End: 04-20-2023 Emergency department patient visit Kerry Linton [facility] Start: 04-08-2023 End: 04-08-2023 Emergency department patient visit LOGAN Barrios Work Phone: [facility] Work Phone: Start: 04-06-2023 End: 04-06-2023 Emergency department patient visit Diamante [place] Work Phone: [facility] Work Phone: Start: 03-20-2023 ambulatory Amanda E ROBUCK Facility :[facility] Start: 03-17-2023 End: 03-17-2023 Emergency department patient visit Diamante [place] Work Phone: [facility] Work Phone: Start: 03-12-2023 End: 03-12-2023 Emergency department patient visit Diamante [place] Work Phone: [facility] Work Phone: Start: 03-04-2023 End: 03-04-2023 Emergency department patient visit DO Ari More Work Phone: [facility] Work Phone: Start: 03-04-2023 ambulatory Amanda E ROBUCK Facility :[facility] Start: 01-28-2023 ambulatory Amanda E ROBUCK Facility :[facility] Start: 01-25-2023 End: 01-25-2023 Emergency department patient visit DO Ari More Work Phone: [facility] Work Phone: Start: 01-19-2023 End: 01-19-2023 Emergency department patient visit DO Ari More Work Phone: [facility] Work Phone: Start: 01-17-2023 End: 01-18-2023 ambulatory Amanda E ROBUCK Facility:[facility] Start: 01-17-2023 End: 01-17-2023 Patient encounter procedure Amanda E ROBUCK [facility] [place] Start: 01-08-2023 End: 01-08-2023 Emergency department patient visit SHARK BIOLOGIST Amanda Robuck Work Phone: [facility] Work Phone: Start: 01-07-2023 End: 01-07-2023 Emergency department patient visit Darren Guzman Facility:[facility] Start: 2023 Registered Recurring Diamante bergeron Work Phone: [facility] Start: 2023 End: 01-06-2023 Evaluation and management of inpatient Francisco Cruz Facility:[facility] Start: 2023 End: 01-06-2023 Evaluation and management of inpatient Azra HOGAN [facility] Start: 01-02-2023 End: 01-02-2023 Emergency department patient visit Darren Guzman Facility:[facility] Start: 01-02-2023 End: 01-02-2023 Emergency department patient visit Darren Guzman [facility] Start: 12-14-2022 End: 12-17-2022 Emergency department patient visit NINI Martinez MCCOLLUM [facility] Start: 12-14-2022 End: 12-16-2022 Emergency department patient visit Amy Steele MD Work Phone: [facility] Comment on above: Alcohol withdrawal s yndrome with complication (CMS/HCC) (Primary Dx); Bipolar affective disorder, currently manic, moderate (CMS/HCC) Start: 12-11-2022 End: 12-11-2022 Emergency department patient visit LOGAN Belley Joana Work Phone: [facility] Work Phone: Start: 12-10-2022 End: 12-10-2022 Emergency department patient visit Eric Forbes Facility:[facility] Start: 12-10-2022 End: 12-10-2022 Emergency department patient visit Eric Forbes [facility] Start: 12-10-2022 End: 12-10-2022 Emergency department patient visit Eric Forbes Facility:[facility] Start: 12-10-2022 End: 12-10-2022 Emergency department patient visit Eric Forbes [facility] Start: 11-30-2022 End: 12-01-2022 ambulatory CARRIE PEREZ Facility:[facility] Start: 11-30-2022 End: 12-01-2022 ambulatory [facility] Facility: [facility] Start: 11-30-2022 End: 11-30-2022 Lab Drop off CARRIE PEREZ [facility] Start: 11-30-2022 End: 11-30-2022 Patient encounter procedure CARRIE PEREZ [facility] Start: 11-14-2022 End: 11-15-2022 ambulatory JADA COLBY Facility:[facility] Start: 11-14-2022 End: 11-14-2022 Lab Drop off JADA COLBY [facility] Start: 11-13-2022 End: 11-14-2022 ambulatory Birgit GAMBLEMAN Facility:[facility] Start: 11-13-2022 End: 11-13-2022 Patient encounter procedure Birgitabbi COOPER [facility] Start: 11-11-2022 End: 11-11-2022 Emergency department patient visit Isai Hall Facility:[facility] Start: 11-04-2022 End: 11-04-2022 Emergency department patient visit Gladys Saini Facility:[facility] Start: 11-04-2022 End: 11-04-2022 Emergency department patient visit Gladys Saini [facility] Start: 10-17-2022 ambulatory Amanda BARRIOS Facility :[facility] Start: 10-11-2022 End: 10-11-2022 Patient encounter procedure LOGAN Barrios Work Phone: [facility] Work Phone: Start: 10-11-2022 End: 10-11-2022 ambulatory SHARK BIOLOGIST Amanda Barrios Work Phone: [facility] Work Phone: Start: 10-05-2022 End: 10-06-2022 ambulatory Stanislav FRAIRE Facility[facility] Start: 09-06-2022 End: 09-06-2022 Emergency department patient visit SHARK BIOLOGIST Amanda Barrios Work Phone: [facility] Work Phone: Start: 08-28-2022 End: 08-29-2022 ambulatory Lorie Gudimelil Facility:[facility] Start: 08-28-2022 End: 08-29-2022 [facility] Start: 08-28-2022 End: 08-28-2022 Lab [facility] Start: 08-28-2022 End: 08-28-2022 Patient encounter procedure Lorie Gudimella [facility] Start: 08-21-2022 End: 09-07-2022 ambulatory Amanda ANTWONJULIO Facility:CD:[id number] Start: 08-17-2022 End: 08-18-2022 ambulatory Francisco Cruz Facility:[facility] Start: 08-16-2022 End: 08-18-2022 Observation Azra HOGAN [facility] Start: 08-15-2022 End: 08-15-2022 Emergency department patient visit Isai Hall Facility:[facility] Start: 08-13-2022 End: 08-14-2022 ambulatory Amanda BARRIOS Facility:[facility] Start: 08-13-2022 End: 08-13-2022 Patient encounter procedure Amanda BARRIOS [facility] Start: 06-07-2022 End: 06-10-2022 Evaluation and management of inpatient SHARK BIOLOGIST Amanda Barrios Work Phone: [facility] Work Phone: Start: 04-26-2022 End: 04-26-2022 Patient encounter procedure Amanda BARRIOS [facility] Start: 04-24-2022 End: 04-24-2022 Patient encounter procedure SHARK BIOLOGIST Amanda Barrios Work Phone: [facility] [place] Work Phone: Start: 04-24-2022 End: 04-24-2022 ambulatory SHARK BIOLOGIST Amanda Barrios Work Phone: [facility] Work Phone: Start: 04-24-2022 Office outpatient ne w 45 minutes Imad Asaad [facility] Start: 04-11-2022 End: 04-11-2022 Emergency department patient visit SHARK BIOLOGIST Amanda Barrios Work Phone: [facility] Work Phone: Start: 04-03-2022 End: 04-04-2022 Emergency department patient visit SHARK BIOLOGIST Amanda Barrios Work Phone: [facility] Work Phone: Start: 04-03-2022 End: 04-03-2022 Emergency department patient visit SHARK BIOLOGIST Amanda Barrios Work Phone: [facility] Work Phone: Start: 04-01-2022 End: 04-01-2022 Emergency department patient visit SHARK BIOLOGIST Amanda Barrios Work Phone: [facility] Work Phone: Start: 03-28-2022 End: 03-28-2022 Patient encounter procedure Amanda BARRIOS [facility] Start: 03-19-2022 End: 03-19-2022 Emergency department patient visit SHARK BIOLOGIST Amanda Barrios Work Phone: [facility] Work Phone: Start: 03-13-2022 End: 03-13-2022 Emergency department [facility] Start: 03-13-2022 Encounter for other general examination MANSFIELD Ilan [facility] Start: 03-13-2022 End: 03-13-2022 Emergency department patient visit Declan Goel MD Work Phone: [facility] ED Comment on above: Encounter for psycho logical evaluation (Primary Dx) Start: 03-13-2022 End: 03-13-2022 Patient encounter status Declan Goel MD Work Phone: [facility] Start: 03-12-2022 End: 03-13-2022 Emergency department patient visit PHU BARKER [facility] Start: 03-12-2022 End: 03-13-2022 Emergency department patient visit Phu Janny Barker DO Work Phone: [facility] ED Comment on above: Acute alcoholic into xication with complication (HCC) (Primary Dx) Start: 03-09-2022 End: 03-09-2022 Emergency department patient visit LOGAN Barrios Work Phone: [facility] Work Phone: Start: 03-05-2022 End: 03-05-2022 Emergency department patient visit SHARK BIOLOGISTDesean Barrios Work Phone: [facility] Work Phone: Start: 02-20-2022 End: 02-21-2022 Emergency department patient visit SHARK BIOLOGIST Amanda Barrios Work Phone: [facility] Work Phone: Start: 02-19-2022 End: 02-19-2022 Emergency department patient visit SHARK BIOLOGIST Amanda Barrios Work Phone: [facility] Work Phone: Start: 10-06-2021 End: 10-06-2021 Off-Site Varun ZURITA Pikem[facility] m Gonzalez Start: 09-19-2021 End: 09-19-2021 Patient encounter procedure Amanda BARRIOS [facility] Start: 07-27-2021 End: 07-28-[address] NONE LISTED REQUEST Facility:[facility] Start: 07-26-2021 End: 07-26-2021 Emergency department patient visit Isai Hall [facility] Start: 07-04-2021 End: 07-04-2021 Lab Drop off Amanda BARRIOS [facility] Start: 07-04-2021 End: 07-04-2021 Patient encounter procedure Amanda BARRIOS [facility] Start: 06-25-2021 End: 06-26-[address] NONE LISTED REQUEST Facility:[facility] Start: 05-31-2021 End: 06-01-2021 ambulatory MARIA E BLANCAS [facility] Start: 05-31-2021 End: 05-31-2021 Subsequent hospital visit by physician ABDIEL Jordan Start: 05-03-2021 End: 05-03-2021 Emergency department patient visit ZAKARIA ABDULNABI [facility] Start: 05-03-2021 End: 05-03-2021 Emergency department patient visit Zaire Osuna MD Work Phone: [facility] ED Comment on above: Temporary high blood pressure (Primary Dx) Start: 05-03-2021 End: 05-03-2021 Emergency department patient visit JOEL ALVES [facility] Start: 05-02-2021 End: 05-03-2021 Emergency department patient visit Declan Bradshaw MD Work Phone: [facility] ED Comment on above: Alcohol withdrawal s yndrome with complication (HCC) (Primary Dx) Start: 02-05-2021 End: 02-06-2021 Evaluation and management of inpatient Jeffery Bynum MD Facility:[facility] Start: 10-18-2020 Emergency department patient visit [facility] Start: 09-22-2020 End: 09-22-2020 Emergency department patient visit Chilo Glover [facility] Start: 08-19-2020 AUDIT Nini Wolf Work Phone: [facility] Work Phone: Start: 03-15-2020 Patient encounter procedure Nini Wolf [facility] Work Phone: Start: 03-12-2020 End: 03-12-2020 Emergency department patient visit [facility] Start: 03-11-2020 End: 03-11-2020 Emergency department patient visit Crescencio Emanuel Work Phone: [facility] Comment on above: Anxiety state (Prima ry Dx) Start: 03-10-2020 End: 03-10-2020 Emergency department patient visit [facility] Start: 03-10-2020 End: 03-10-2020 Emergency department patient visit [facility] Work Phone: [facility] ED Comment on above: Anxiety attack (Prim halima Dx) Start: 03-02-2020 Patient encounter procedure Nini Wolf [facility] Work Phone: Start: 01-20-2020 Patient encounter procedure Nini Wolf [facility] Work Phone: Start: 01-06-2020 Patient encounter procedure Nini Wolf [facility] Work Phone: Start: 12-23-2019 Patient encounter procedure Nini Wolf [facility] Work Phone: Start: 11-03-2019 Patient encounter procedure Nini Wolf [facility] Work Phone: Start: 10-23-2019 Patient encounter procedure Nini Wolf [facility] Work Phone: Start: 10-13-2019 Patient encounter procedure Nini Wolf [facility] Work Phone: Start: 09-08-2019 Patient encounter procedure Nini Wolf [facility] Work Phone: Start: 09-03-2019 Patient encounter procedure Nini Wolf [facility] Work Phone: Start: 08-13-2019 Patient encounter procedure Nini Wolf [facility] Work Phone: Start: 06-22-2019 Patient encounter procedure Nini Wolf [facility] Work Phone: Start: 05-20-2019 Patient encounter procedure Nini Wolf [facility] Work Phone: Start: 04-17-2019 Patient encounter procedure Nini Wolf [facility] Work Phone: Start: 04-03-2019 Patient encounter procedure Nini Wolf [facility] Work Phone: Start: 02-24-2019 Patient encounter procedure Nini Wolf [facility] Work Phone: Start: 02-17-2019 Patient encounter procedure Nini Wolf [facility] Work Phone: Start: 01-14-2019 Patient encounter procedure Nini Wolf [facility] Work Phone: Start: 12-20-2018 End: 12-20-2018 Emergency department patient visit Luis Mo Work Phone: [facility] ED Comment on above: Anxiety state (Prima ry Dx); Alcohol abuse Start: 11-01-2018 End: 11-01-2018 Emergency department patient visit Mundo Guzman Work Phone: [facility] ED Comment on above: Pain of left upper a rm (Primary Dx); Elevated d-dimer Start: 06-21-2018 End: 06-21-2018 Emergency department patient visit ELVIS [facility] Procedures Date Procedure Procedure Detail Performing Clinician Start: 04-08-2023 Urine culture LOGAN Sandoval junie Joana Work Phone: Start: 03-17-2023 Urine culture Diamante Ponce rubio Work Phone: Start: 01-25-2023 Streptococcus pyogen es antigen assay DO [employer] Work Phone: Start: 01-25-2023 Urine culture DO [employer] Work Phone: Start: 12-16-2022 SARS-COV-2 PCR, SCRE EN ASYMPTOMATIC NINI MCCOLLUM Start: 12-16-2022 Sars-cov-2 detection by dna/rna [employer] Work Phone: Start: 12-15-2022 DRUG SCREEN,URINE NINI C FLORECITA Start: 12-15-2022 Drug tst prsmv instr mnt chem analyzers pr date Jessica Mcdowell [employer] Work Phone: Start: 12-15-2022 DRUG SCREEN,URINE NINI [...] VEDA Start: 12-14-2022 SALINE LOCK IV NINI TATE EY Start: 12-14-2022 Drug tst prsmv instr [...] Start: 10-11-2022 Ultrasound elastogra phy of liver SHARK BIOLOGISTDesean Barrios Work Phone: Start: 08-30-2022 Throat culture Amanda MICHEL Comment on above: Performed By: #### [id number] ####Verdguo [facility] [address] [place] [address] Start: 06-07-2022 Plain chest X-ray LOGAN Barrios Work Phone: Start: 04-11-2022 Plain chest X-ray SHARK BIOLOGIST Amanda Barrios Work Phone: Start: 04-03-2022 Blood culture [...] hydroxy includes fractions if performed MARIA E BALNCAS Start: 05-31-2021 Lipid panel MARIA E POE [...] Wolf Start: 02-17-2019 Assay of ferritin Nini zamora Start: 02-17-2019 Assay of folic acid [...] CAMPBELL Start: 06-21-2018 Assay of troponin quantitative [facility] Start: 06-21-2018 Blood count complete auto&auto difrntl wbc [facility] Start: 06-21-2018 Comprehensive metabo lic panel [facility] Start: 06-21-2018 Assay of lactate [facility] Start: 06-21-2018 Radiologic exam ches t single view [facility] Start: 06-21-2018 Drug screen class list a [facility] Start: 06-21-2018 Urnls dip stick/tabl et rgnt auto w/o microscopy [facility] Start: 02-11-2017 Loop electrosurgical excision procedure of cervix Nini Wolf Work Phone: Diabetes mellitus screening Imad Asaad Other Hyperlipidemia screening Dona d Asaad Other LOOP electro excisio n of cervix Nini Wolf Comment on above: Completed: 2017 None (qualifier value) Amanda MARTÍNEZJULIO Plan of Treatment Date Care Activity Detail Author Start: 01-04-2057 Pneumococcal 0-64 ye ars Vaccine (2 of 2 - PPSV23) Pneumococcal 0-64 years Vaccine (2 of 2 - PPSV23) [facility] Start: 01-04-2042 Zoster Vaccines (1 o f 2) Zoster Vaccines (1 of 2) [facility] Start: 04-10-2031 DTaP/Tdap/Td vaccine (3 - Td or Tdap) DTaP/Tdap/Td vaccine (3 - Td or Tdap) [facility] Start: 04-10-2031 DTaP/Tdap/Td vaccine (5 - Td or Tdap) DTaP/Tdap/Td vaccine (5 - Td or Tdap) [facility] Start: 04-10-2031 DTaP/Tdap/Td Vaccine s (4 - Td or Tdap) DTaP/Tdap/Td Vaccines (4 - Td or Tdap) [facility] Start: 03-27-2024 Lipid panel Lipid Panel [facility] Start: 08-10-2023 [facility] Start: 08-06-2023 Hospital admission [facility] Start: 03-17-2023 Bacteria identified in Urine by Culture [facility] Start: 03-12-2023 [facility] Start: 01-25-2023 Bacteria identified in Urine by Culture Urine Culture [facility] Start: 10-12-2022 Influenza vaccination Influenza Vacc ine (#1) [facility] Start: 10-11-2022 [facility] Start: 06-10-2022 [facility] Start: 06-07-2022 Referral to Consulting Actuary [facility] Start: 06-07-2022 Sleep disorder assessment [facility] Start: 06-07-2022 Hospital admission [facility] Start: 04-03-2022 [facility] Start: 04-03-2022 Bacteria identified in Blood by Culture [facility] Start: 04-03-2022 Blood culture for bacteria, including anaerobic screen Blood Culture [facility] Start: 04-03-2022 [facility] Start: 01-04-2022 Screening for malign ant neoplasm of cervix [facility] Start: 10-12-2021 Influenza vaccination Flu vacc ine (Season Ended) [facility] Start: 09-11-2021 Influenza vaccination Flu vaccine (# 1) [facility] Start: 12-14-2020 COVID-19 Vaccine (3 - Booster for Pfizer series) COVID-19 Vaccine (3 - Booster for Pfizer series) [facility] Start: 10-12-2020 Influenza vaccination Flu vaccine (# 1) [facility] Start: 10-11-2020 FUV, Provider: Nini Wolf, Status: Pen, Time: 10:00 AM FUV, Provider: Nini Wolf, Status: Pen, Time: 10:00 AM [facility] [address] [facility] Work Phone: Start: 10-11-2020 Patient encounter procedure [facility] Start: 09-08-2020 COVID-19 Vaccine (3 - Booster for Pfizer series) COVID-19 Vaccine (3 - Booster for Pfizer series) [email or web address] Start: 09-08-2020 COVID-19 Vaccine (3 - Pfizer series) COVID-19 Vaccine (3 - Pfizer series) [facility] Start: 10-13-2019 Influenza vaccination Flu vaccine (# 1) [place] Start: 12-22-2018 End: 12-22-2018 Virtual Health 12/22/2018 [facility] Parag Le, LOGAN - COMPONENT DESIGN ENGINEER [address] [place] [address] [phone] [facility] Start: 11-24-2018 End: 11-24-2018 Office Visit [facility] Start: 10-12-2018 Influenza vaccination Flu vaccine (# 1) [place], [place] Start: 12-14-2017 Pneumococcal 0-64 ye ars Vaccine (2 - PCV) Pneumococcal 0-64 years Vaccine (2 - PCV) [facility] Start: 01-04-2013 Cervical cancer screen Cervical canc er screen [place] Start: 01-04-2013 Screening for malign ant neoplasm of cervix [facility] Start: 01-04-2011 DTaP/Tdap/Td vaccine (2 - Tdap) DTaP/Tdap/Td vaccine (2 - Tdap) [place] Start: 01-04-2011 Hepatitis A Vaccines (1 of 2 - Risk 2-dose series) Hepatitis A Vaccines (1 of 2 - Risk 2-dose series) [facility] Start: 01-04-2010 Hepatitis C screening Hepatitis C sc reen [facility] Start: 01-04-2007 HIV screen HIV screen [place], [place] Start: 01-04-2007 HIV screening HIV screen [facility] Start: 01-04-2007 HPV vaccine (1 - Fem faye 3-dose series) HPV vaccine (1 - Female 3-dose series) [place], [place] Start: 01-04-2005 Varicella Vaccine (1 of 2 - 13+ 2-dose series) Varicella Vaccine (1 of 2 - 13+ 2-dose series) [place] Start: 2004 Depression Monitoring Depression [facility] Start: 01-04-2003 DTaP/Tdap/Td vaccine (2 - Tdap) DTaP/Tdap/Td vaccine (2 - Tdap) [place] Start: 01-04-2003 HPV vaccine (1 - Fem faye 2-dose series) HPV vaccine (1 - Female 2-dose series) [facility], [place] Start: 10-13-1997 Varicella vaccination Varicell a Vaccines (1 of 2 - 2-dose childhood series) [facility] Start: 01-04-1993 Varicella vaccine (1 of 2 - 2-dose childhood series) Varicella vaccine (1 of 2 - 2-dose childhood series) [facility] Start: 1992 Hepatitis B Vaccines (1 of 3 - 3-dose series) Hepatitis B Vaccines (1 of 3 - 3-dose series) [facility] Start: 1992 Hepatitis C screening Hepatitis C sc reen [facility] Start: 1992 [facility]ly Adult [facility] gap [facility] Bacteria identified in Urine by Culture [facility] Basophils [#/volume] in Blood by Automated count [facility] Basophils/100 leukocytes in Blood by Automated count [facility] EKG 12 Lead EKG 12 Lead ECG STAT 12/20/2018 9:33 PM EST [place] EKG 12 Lead EKG 12 Lead ECG Routine 05/03/2021 9:49 AM EDT [facility] Work Phone: End: 12-14-2022 Electrocardiogram, 12-lead [facility] [[email or web address] Service Area Work Phone: Comment on above: As needed until disc ontinued starting 12/14/2022 Once for 1 Occurrenc es starting 12/14/2022 until 12/14/2022 Eosinophils/100 leukocytes in Blood by Automated count [facility] Erythrocyte distribution width [Ratio] by Automated count [facility] Erythrocyte sedimentation rate by Photometric method [facility] Erythrocytes [#/volu me] in Blood [facility] Ethanol [Mass/volume ] in Serum or Plasma [facility] Globulin [Mass/volum e] in Serum [facility] Hematocrit [Volume Fraction] of Blood [facility] Hemoglobin [Mass/volume] in Blood [facility] Hepatitis A virus Ab [Presence] in Serum by Immunoassay [facility] Hepatitis B core antibody measurement [facility] Hepatitis B virus DN A [#/volume] (viral load) in Serum or Plasma by MOISES with probe detection [facility] Hepatitis B virus DN A [log units/volume] (viral load) in Serum or Plasma by MOISES with probe detection [facility] Hepatitis B virus DN A [Units/volume] (viral load) in Serum or Plasma by MOISES with probe detection [facility] Hepatitis B virus surface Ab [Presence] in Serum [facility] Hepatitis B virus surface Ag [Presence] in Serum or Plasma by Immunoassay [facility] Hepatitis C virus RN A [log units/volume] (viral load) in Serum or Plasma by MOISES with probe detection [facility] HIV 1+2 Ab+HIV1 p24 Ag [Presence] in Serum or Plasma by Immunoassay [facility] Leukocytes [#/volume ] corrected for nucleated erythrocytes in Blood by Automated coun [facility] Leukocytes [#/volume ] in Blood [facility] Lymphocytes [#/volum e] in Blood by Automated count [facility] Lymphocytes/100 leukocytes in Blood by Automated count [facility] MCH [Entitic mass] b y Automated count [facility] MCHC [Mass/volume] b y Automated count [facility] MCV [Entitic volume] by Automated count [facility] Measurement of Hepatitis delta virus antibody [facility] Monocytes [#/volume] in Blood by Automated count [facility] Monocytes/100 leukocytes in Blood by Automated count [facility] Neutrophils [#/volum e] in Blood by Automated count [facility] Neutrophils/100 leukocytes in Blood by Automated count [facility] Nucleated erythrocyt es [Presence] in Blood by Automated count [facility] Patient Education [facility] Work Phone: Patient referral [facility] Work Phone: Platelet mean volume [Entitic volume] in Blood by Automated count [facility] Platelets [#/volume] in Blood [facility] End: 11-01-2018 VL DUP UPPER EXTREMITY VENOUS LEFT VL DUP UPPER EXTREMITY VENOUS LEFT Imaging Routine Once for 1 Occurrences starting 11/01/2018 until 11/01/2018 [facility], [place] Comment on above: Once for 1 Occurrenc es starting 11/01/2018 until 11/01/2018 [facility] NEGATED: Highlighted row has been ruled out! Planned Goals not documented [facility] Work Phone: Immunizations Immunization Date Immunization Notes Care Provider Bianka soto 04-01-2022 tetanus toxoid, redu perry diphtheria toxoid, and acellular pertussis vaccine, adsorbed [employer]ARK [employer]OLOGIST Amanda Robuck Work Phone: [facility] 04-10-2021 tetanus toxoid, redu perry diphtheria toxoid, and acellular pertussis vaccine, adsorbed SHARK BIOLOGIST Amanda Robuck Work Phone: [facility] 07-14-2020 COVID-19 mRNA, Comirnaty (Pfizer) SHARK BIOLOGIST Amanda Robjulio Work Phone: [facility] 06-23-2020 COVID-19 mRNA, Comirnaty (Pfizer) SHARK BIOLOGIST Amanda Robjulio Work Phone: [facility] 11-19-2017 influenza, seasonal, injectable; Translations: [Fluzone Quadravalent] Amanda ROBJULIO [facility] Comment on above: Reason for Medicatio n: Other (see comment) 11-19-2017 influenza virus vaccine, unspecified formulation Amy Steele MD Work Phone: [facility] Work Phone: 12-14-2016 pneumococcal polysaccharide vaccine, 23 valent [facility] 05-01-2016 tetanus toxoid, redu perry diphtheria toxoid, and acellular pertussis vaccine, adsorbed Amanda ROBUCK [facility] 04-23-2012 influenza, seasonal, injectable Amanda ROBUCK [facility] 04-23-2012 tetanus toxoid, redu perry diphtheria toxoid, and acellular pertussis vaccine, adsorbed Amanda ROBUCK [facility] Comment on above: Reason for Medicatio n: Other (see comment) 09-15-1997 DTaP, unspecified formulation Amanda BARRIOS [facility] 09-15-1997 measles, mumps and rubella virus vaccine Amanda BARRIOS [facility] NEGATED: Highlighted row has not occurred!11-30-2022 influenza virus vaccine, unspecified formulation CARRIE PEREZ [facility] NEGATED: Highlighted row has not occurred!11-30-2022 SARS-CoV-2 mRNA (tozinameran 5y-11y) vaccine [place] PEREZ [facility] NEGATED: Highlighted row has not occurred!03-28-2022 influenza virus vaccine, unspecified formulation Amanda BARRIOS [facility] Payers Date Payer Category Payer Unknown [id number] 2022 Self-pay [id number] 2018 Medicaid [id number] 2018 Unknown 2016 Unknown [facility] MEDICAID xxxxxxxxxxx 2016-Present [phone] CLAIMS DEPARTMENT [address] [place] [address] xxxxxxxxxxx [id number]. [id number] 1992 Unknown [id number] 2.16.840.1.815731.3.579.2.182 1992 Unknown [id number] 2.16.840.1.158859.3.579.2.185 1992 Unknown [id number] 2.16.840.1.583918.3.579.2.174 1992 Unknown [id number] 2.16.840.1.267579.3.579.2.174 1992 Unknown [id number] 2.16.840.1.387033.3.579.2.196 1992 Unknown [id number] 2.16.840.1.688779.3.579.2.177 1992 Unknown [id number] 2.16.840.1.800094.3.579.2.204 1992 Unknown [id number] 2.16.840.1.177163.3.579.2.593 1992 Unknown [id number] 2.16.840.1.371659.3.579.2.593 1992 Unknown [id number] 2.16.840.1.959310.3.579.2.176 1992 Unknown [id number] 2.16.840.1.968658.3.579.2.175 1992 Unknown [id number] 2.16.840.1.832202.3.579.2.175 1992 Unknown [id number] 2.16.840.1.665778.3.579.2.1243 1992 Unknown [id number] 2.16.840.1.700199.3.579.2.727 1992 Unknown [id number] 2.16.840.1.637161.3.579.2.727 1992 Unknown [id number] 2.16.840.1.205857.3.579.2.727 1992 Unknown [id number] 2.16.840.1.166025.3.579.2.727 1992 Unknown [id number] 2.16.840.1.815948.3.579.2 1992 Unknown [id number] 2.16.840.1.662866.3.579.2 1992 Unknown [id number] 2.16.840.1.132058.3.579.2 1992 Unknown [id number] 2.16.840.1.291219.3.579.2 1992 Unknown [id number] 2.16.840.1.848616.3.579.2 1992 Unknown [id number] 2.16.840.1.284345.3.579.2 1992 Unknown [id number] 2.16.840.1.007257.3.579.2 1992 Unknown [id number] 2.16.840.1.014776.3.579.2 1992 Unknown [id number] 2.16.840.1.908438.3.579.2 1992 Unknown [id number] 2.16.840.1.513210.3.579.2 1992 Unknown [id number] 2.16.840.1.450238.3.579.2 1992 Unknown [id number] 2.16.840.1.295008.3.579.2 1992 Unknown [id number] 2.16.840.1.822598.3.579.2 1992 Unknown [id number] 2.16.840.1.601075.3.579.2 1992 Unknown [id number] 2.16.840.1.153676.3.579.2 1992 Unknown [id number] 2.16.840.1.297885.3.579.2 1992 Unknown [id number] 2.16.840.1.399823.3.579.2 1992 Unknown [id number] 2.16.840.1.104260.3.579.2. 1992 Unknown [id number] 2.16.840.1.368171.3.579.2 1992 Unknown [id number] 2.16.840.1.906741.3.579.2 1992 Unknown [id number] 2.16.840.1.758064.3.579.2 1992 Unknown [id number] 2.16.840.1.927412.3.579.2 1992 Unknown [id number] 2.16.840.1.878263.3.579.2 1992 Unknown [id number] 2.16840.1.667294.3.579.2 1992 Unknown [id number] 2.16.840.1.845897.3.579.2 1992 Unknown [id number] 2.16.840.1.972656.3.579.2 1992 Unknown [id number] 2.16.840.1.565782.3.579.2 1992 Unknown [id number] 2.16.840.1.663313.3.579.2 1992 Unknown [id number] 2.16.840.1.079747.3.579.2 1992 Unknown [id number] 2.16.840.1.947108.3.579.2 1992 Unknown [id number] 2.16.840.1.797059.3.579.2 1992 Unknown [id number] 2.16.840.1.275902.3.579.2 1992 Unknown [id number] 2.16.840.1.518661.3.579.2.727 1992 Unknown [id number] 2.16.840.1.284816.3.579.2.727 1992 Unknown [id number] 2.16.840.1.618570.3.579.2.727 1992 Unknown [id number] 2.16.840.1.932317.3.579.2. 1992 Unknown [id number] 2.16.840.1.506689.3.579.2. 1992 Unknown [id number] 2.16.840.1.714247.3.579.2. 1992 Unknown [id number] 2.16.840.1.840012.3.579.2. 1992 Unknown [id number] 2.16.840.1.037675.3.579.2. 1992 Unknown [id number] 2.16.840.1.498309.3.579.2. 1992 Unknown [id number] 2.16.840.1.911964.3.579.2. 1992 Unknown [id number] 2.16.840.1.287856.3.579.2.727 1959 Unknown [id number] Medicare Medicare [id number] Unknown [facility] [id number] Unknown [id number] 2.16.840.1.785830.3.579.2.531 Unknown [id number] 2.16.840.1.380049.3.579.2.531 Unknown [id number] 2.16.840.1.675173.3.579.2.531 Unknown [id number] 2.16.840.1.799577.3.579.2.531 Unknown [id number] 2.16.840.1.822843.3.579.2.531 Unknown [id number] 2.16.840.1.076801.3.579.2.531 Unknown [id number] 2.16.840.1.285922.3.579.2.531 Unknown [id number] 2.16.840.1.980925.3.579.2.531 Unknown [id number] 2.16.840.1.048930.3.579.2.531 Unknown [id number] 2.16.840.1.653910.3.579.2.531 Unknown [id number] 2.16.840.1.196989.3.579.2.531 Unknown [id number] 2.16.840.1.639743.3.579.2.531 Unknown [id number] 2.16.840.1.616587.3.579.2.531 Unknown [id number] 2.16.840.1.162501.3.579.2.531 Social History Date Type Detail Facility Start: 11-01-2018 End: 03-12-2022 Tobacco smoking status NHIS Current every day smoker [place] History of tobacco use Cigarette Sm[place] Start: 11-01-2018 End: 03-13-2022 Cigarettes smoked current (pack per day) - Reported [place] Comment on above: 4 [employer]; Start: 02-12-2000 Alcohol intake No [place], [place] Start: 1990 Sex Assigned At Female M [place] Start: 03-10-2020 End: 03-12-2022 Tobacco use and exposure Never used [place] Start: 03-10-2020 End: 03-13-2022 Alcohol intake Current drinker of alcohol (finding) [place] Start: 04-23-2021 End: 12-14-2022 Exposure to SARS-CoV-2 (event) Not sure [place] Start: 12-20-2018 Alcohol Comment 8-12 beers karan ly plus liquor at times [facility] [place] [place] Tobacco smoking consumption unknown [facility] Start: 03-14-2021 End: 05-03-2021 Alcohol intake Ex-drinker (finding) [facility] Work Phone: Start: 05-03-2021 History SDOH Alcohol Comment currently at [place] [facility] for alcohol. last drink was 12 days ago [facility] Work Phone: Start: 07-04-2021 End: 07-14-2023 Tobacco smoking status Heavy tobacco smoker (finding) [facility] Tobacco smoking status Never [facility] Start: 02-19-2022 End: 01-08-2023 Tobacco smoking status NHIS Never smoked tobacco (finding) [facility] Start: 03-09-2022 End: 08-07-2023 Tobacco smoking status NHIS Smoker (finding) [facility] Start: 03-12-2022 Alcohol Comment drank 02/15 toda y 03/12/2022---currently at [place] [facility] for alcohol. last drink was 12 days ago [employer] [employer] Work Phone: Start: 03-13-2022 History SDOH Alcohol Frequency 5 [facility] [employer] Work Phone: Start: 1990 Sex Assigned At Not on file [facility] Work Phone: NEGATED: Highlighted row - - -[facility] Work Phone: NEGATED: Highlighted row [facility] Goals Date Patient Goal Desired Activity /State Functional Status Date Assessment Result Facility 08-29-2023 Functional Status N/A [facility] 08-10-2023 Functional status Patient at [facility] Work Phone: 08-06-2023 Functional Status N/A [facility] 07-14-2023 Functional Status N/A [facility] 07-05-2023 Functional Status N/A [facility] 07-03-2023 Functional Status N/A [facility] 06-30-2023 Functional Status N/A [facility] 06-17-2023 Functional Status N/A [facility] 06-03-2023 Functional Status N/A [facility] 04-19-2023 Functional Status N/A [facility] 2023 Functional Status N/A [facility] 2023 Functional Status [facility] 01-02-2023 Functional Status N/A [facility] 12-10-2022 Functional Status N/A [facility] 12-10-2022 Functional Status N/A [facility] 11-30-2022 Functional Status N/A [facility] 11-04-2022 Functional Status N/A [facility] 08-17-2022 Functional Status No [facility] 08-16-2022 Functional Status N/A [facility] 08-13-2022 Functional Status N/A [facility] 06-10-2022 Functional status Patient at [facility] Work Phone: 07-26-2021 Functional Status N/A [facility] NEGATED: Highlighted row Functional performance Functional status health issues are not documented Disease [facility] Work Phone: Mental Status Date Assessment Result Facility 08-10-2023 Cognitive function Cognitive Sta tus Patient at Baseline [facility] Work Phone: 06-10-2022 Cognitive function Cognitive Sta tus Patient at Baseline [facility] Work Phone: NEGATED: Highlighted row Cognitive function [Interpretation] Cognitive status health issues are not documented Disease [facility] Work Phone: Clinical Notes 02-05-2021 to 08-30-2023 Note Date & Type Note Facility 08-30-2023 Evaluation + Plan note Extrac jose from: Title:ED Note Author:Kerry Linton DO Date :08/30/23 Alcohol abuse with withdrawa yung (F10.139: Alcohol abuse with withdrawal, unspecified) Orders: lorazepam, 1 mg = 1 tab(s), Tab, Oral, Once, Stop date 08/30/23 1:15:00 EDT, STAT, Start date 08/30/23 1:15:00 EDT, 08/30/23 1:15:00 EDT lorazepam, 1 mg = 1 tab(s), Oral, TID, PRN for anxiety, X 3 day(s), # 9 tab(s), Refills(s) 0, Pharmacy: [id number], 157, cm, 08/29/23 22:55:00 EDT, Height/Length Dosing, 77.9, kg, 08/29/23 22:55:00 EDT, Weight Dosing lorazepam, 2 mg = 2 tab(s), Tab, Oral, Once, Stop date 08/29/23 23:21:00 EDT, STAT, Start date 08/29/23 23:21:00 EDT, 08/29/23 23:21:00 EDT CBC w/ Auto Diff Communication Order Comprehensive Metabolic Panel Drug Screen Urine eGFR Ethanol Level U Beta Hcg Qual [facility]07-19-2024 Hospital Discharge instructions Patient Education 08/30/2023 01:36:47 Alcohol Withdrawal Syndrome, Lzgz-dj-Vffg Alcohol Withdrawal Syndrome Alcohol withdrawal syndrome is [...] groups. Follow these instructions at home: Take uout-ybp-rmpxtbo and prescription medicines only as told by [...] provider. Document Revised: 04/11/2022 Document Reviewed: 04/11/2022 Assembly Patient Education 2022 [employer]. Follow Up Care 08/29/2023 22:35:23 With:Chemical Dependency: Address:Unknown When:09/02/2023 Comments:you can use Ativan every 8 hours as needed for your symptoms. Please follow-up with your primary care doctor and chemical dependency for further evaluation management. Return to the ED for any new orworsening symptoms. With:Birgit Aiken Address: [address] [place] [address]. [address] [place] [address]- Business (1) When:Within 3 Day(s) [facility]07-19-2024 NoteED Patient Education Note Mental and Behavioral Health [...] Follow these instructions at home: ? Take ssjw-sax-rrgkxmf and prescription medicines only as told by [...] symptoms. You should get help right away ifyou have these symptoms. ? Think about joining an alcohol support group or a treatment program. This information is not intended to replace advice given to you by your health care provider. Make sure you discuss any questions you have with your health care provider. Document Revised: 04/11/2022 Document Reviewed: 04/11/2022 [employer] [facility] Patient Education ? 2022 [employer] 08-10-2023 Discharge summary Author Piyush Pace [facility] August 10, 2023 11:13am Note Date/Time August 10, 2023 11:0 0am [facility] [address] [place] [address] Discharge Summary Signed Patient: Lyle Bailey MR#: [id number] : 1990 Acct:[id number] Age/Sex: 33 / F Adm Date: 4 Loc: Room: [address] [place] [address]: Piyush Pace MD Copies to: MD Amanda Resendez APRN, SYSTEMS INTEGRATOR~ Providers Date of Discharge: 08/10/23 Discharging Provider: [...] couple days. Her last admission was at [facility] on July 05, 2023 for psychosis. [...] Contact Information You can call [facility] Inpatient Behavioral Health at [phone] any time day or night if you have emergent questions or question regarding discharge instructions. If at any time you are feeling an increase inyour psychiatric symptoms, call your physician or behavioral healthcare provider. If any time you have thoughts of harming yourself or others contact one of the following: Call (available 03/09) Crisis Text Line (available 03/09) text 4HOPE to [phone] [facility] Hope Line (available 8 a.m. Midnight) call [phone] ([phone]) Regular diet No Activity Restrictions Instructions: Bipolar Disorder (DC), [facility] Behavior[facility] Health DC Instructions, Know your Meds [...] tablet 10 mg PO DAILY Follow Up: [facility] ([place]) [Outside] (Jada Colby NP, Call this office on Saturday08/12/2023 for a follow up appointment. ) Amanda Barrios APRN, COMPONENT DESIGN ENGINEER-C [Primary Care Provider] - (Please contact for any medical needs or concerns) Exam Physical Exam Vital Signs: Temp Pulse Resp BP Pulse Ox O2 Del Method 97.3 F L 68 18 125/92 97 Room Air 08/10/23 07:29 08/10/23 07:29 08/10/23 07:29 08/10/23 07:29 08/10/23 07:29 08/10/23 07:29 Documented By: Piyush Pace MD 08/10/23 1056 Signed By: <Electronically signed by Piyush Pace MD> 08/10/23 1113 [facility] Work Phone: 1(598) 778-715106-28-2024 Progress note Author Piyush Pace [facility] August 09, 2023 11:39am Note Date/Time August 09, 2023 11:3 9am [facility] [address] [place] [address] Psychiatry Progress Note Signed Patient: Lyle Bailey MR#: [id number] : 1990 Acct:[id number] Age/Sex: 33 / F Adm Date: 4 Loc: Room: [address] [place] [address] Type : ADM IN Attending Dr: Piyush [...] signed by Piyush Pace MD> 08/09/23 1139 [facility] Work Phone: 1(606) 677-300506-27-2024 Progress note Author Piyush Pace [facility] August 08, 2023 12:29pm Note Date/Time August 08, 2023 10:2 6am [facility] [address] [place] [address] Psychiatry Progress Note Signed Patient: Lyle Bailey MR#: [id number] : 1990 Acct:[id number] Age/Sex: 33 / F Adm Date: 4 Loc: Room: [address] [place] [address] Type : ADM IN Attending Dr: Piyush [...] 18 131/87 98 Room Air 08/08/23 07:23 06/27/24 07:23 08/08/23 07:23 08/08/23 07:23 08/08/23 07:23 [...] <Electronically signed by Piyush Pace MD> 08/08/23 1229 [facility] Work Phone: 1(420) 119-683806-26-2024 History and physical note Author Piyush Pace [facility] August 07, 2023 12:27pm Note Date/Time August 07, 2023 10:4 1am [facility] [address] [place] [address] Psychiatry H&P Signed Patient: Lyle Bailey MR#: [id number] : 1990 Acct:[id number] Age/Sex: 33 / F Adm Date: 4 Loc: Room: [address] [place] [address] Type: ADM IN Attending Dr: Piyush Pace [...] couple days. Her last admission was at [facility] on July 05, 2023 for psychosis. [...] of Present Illness History of present illness: [facility] Medical History Accidental heroin overdose Anxiety Blood [...] staff) Documented By: Piyush Pace MD 08/07/23 1942 Signed By: <Electronically signed by Piyush Pace MD> 08/07/23 7287 [facility] Work Phone: 1(177) 268-776106-25-2024 NotePatient was signed out to me by the outgoing provider. At the time of signout she is medically cleared and awaiting evaluation by P. P called and evaluated the patient and reports to us that earlier today she did tell someone thatshe was, she was self in the head and for this reason they want her [facility] for further evaluation. Patient was transferred in stable condition.[facility] Center[facility]:Result Comment: Electronically Signed By: Darren Guzman DO\.br\Date and Time Signed: 08/06/23 20:28 [id number] Evaluation + Plan note Diagnostic Tests Pending * Urine Culture 07/14/23 * Chlam/GC/Trich,MOISES 07/14/23 [facility] [facility]24 Hospital Discharge instructions Patient Education 07/14/2023 [...] require a prescription. You can also purchase bgno-qia-jqqjgro medicines. Medicines may have nicotine in them [...] and encouragement. Call telephone quitlines, such as 8-100-LWUV-NOW, reach out to support groups, or work [...] provider. Document Revised: 01/19/2022 Document Reviewed: 01/19/2022 Assembly Patient Education 2022 [employer]. 07/14/2023 11:56:21 Health Risks of Smoking Health [...] provider. Document Revised: 01/30/2022 Document Reviewed: 01/30/2022 Assembly Patient Education 2022 [employer] 07/14/2023 11:56:19 BMI for Adults BMI [...] numbers. This can be done either in [place] (U.S[place] or metric measurements. Note that charts and online BMI calculators are available to help you find your BMI quickly and easily without having to do these calculations yourself. To calculate your BMI in [place] (U.S[place] measurements: 1.Measure your weight in pounds [...] Association: www.heart.org National Heart, Lung, and Blood [place]: www.nhlbi.nih.gov Summary Body mass index (BMI) is a number that is calculated from a person's weight and height. BMI may help estimate how much of a person's weight is composed of fat. BMI can help identify thosewho may be at higher risk for certain medical problems. BMI can be measured using Palestinian measurements or metric measurements. BMI charts are used to identify whether you are underweight, normal weight, overweight, or obese. This information is not intended to replace advice given to you by your health care provider. Make sure you discuss any questions you have with your health care provider. Document Revised: 10/21/2019 Document Reviewed: 08/28/2019 Assembly Patient Education 2022 [employer]. 07/14/2023 11:56:17 Dysuria Dysuria Dysuria is pain [...] Follow these instructions at home: Medicines Take xdqa-zql-ujsgwab and prescription medicines only as told by [...] provider. Document Revised: 09/09/2020 Document Reviewed: 09/09/2020 Assembly Patient Education 2022 [employer]. Follow Up Care 07/14/2023 09:17:40 With:Amanda BARRIOS CNP Address: [address] [place] [address]- When: Unknown [facility] [phone] Evaluation + Plan noteExtracted from: Title:ED Note [...] was evaluated by [facility] excepted to clear [place] by Dr. Burrows. Kerry Linton DO FAAEM [facility]05-22-2024 Evaluation + Plan noteExtracted from: Title:ED [...] Routine Capillary Glucose POC Saline Lock Insert [facility]05-22-2024 Hospital Discharge instructions Patient Education 07/03/2023 10:43:33 Seizure, Adult, Kqhs-wb-Anla Seizure, Adult A seizure is a sudden [...] Follow these instructions at home: Medicines Take hmtr-aun-qxvqxtl and prescription medicines only as told by [...] medicines are used to treat seizures. Take wvhl-wdo-rotmgha and prescription medicines only astold by your doctor. This information is not intended to replace advice given to you by your health care provider. Make sure you discuss any questions you have with your health care provider. Document Revised: 08/05/2020 Document Reviewed: 08/05/2020 Assembly Patient Education 2022 [employer]. 07/03/2023 10:43:33 Alcohol Withdrawal Syndrome, Fexs-zl-Qkgi Alcohol Withdrawal Syndrome Alcohol withdrawal syndrome is [...] groups. Follow these instructions at home: Take ppib-pdm-nkhuiot and prescription medicines only as told by [...] provider. Document Revised: 04/11/2022 Document Reviewed: 04/11/2022 Assembly Patient Education 2022 [employer]. Follow Up Care 07/03/2023 07:31:38 With:Amanda MARTÍNEZJULIO Address: [address] [place], [place] [id number]- Business (1) When:1 to 2 days only if needed [facility]05-20-2024 Hospital Discharge instructions Patient Education 06/30/2023 [...] beverage between alcoholic drinks. General instructions Take tkhc-cws-tichuux and prescription medicines only as told by your health care provider. Do not drive after drinking any amount of alcohol. Plan for a designated feeder driver or another way to go home. [...] the National Suicide Prevention Lifeline at or 876. This is open 24 hours a day. Text the Crisis Text Line at 336433. Summary Alcohol intoxication occurs when a person [...] provider. Document Revised: 04/16/2022 Document Reviewed: 04/16/2022 Assembly Patient Education 2022 [employer]. Follow Up Care 06/30/2023 13:43:14 With:Amanda MARTÍNEZJULIO Address: [address] [place], [place] [id number] Business (1) When:Within 3 Day(s) [facility]05-19-2024 Evaluation + Plan noteExtracted from: Title:ED [...] Saline Lock Insert UA with Cult Rflx [facility]05-06-2024 Hospital Discharge instructions Patient Education 06/17/2023 [...] Follow these instructions at home: Medicines Take jbve-wab-qegzpgm and prescription medicines only as told by [...] provider. Document Revised: 09/09/2020 Document Reviewed: 09/09/2020 Assembly Patient Education 2022 [employer] 06/17/2023 15:52:47 Safe Sex Safe Sex [...] STI. Follow these instructions at home: Take dewi-ckh-baquyjn and prescription medicines only as told by [...] provider. Document Revised: 07/04/2020 Document Reviewed: 07/04/2020 Assembly Patient Education 2022 [employer]. Follow Up Care 06/17/2023 11:53:17 With:Amanda BARRIOS CNP Address: [address] [place], [place] [id number]- When: Unknown [facility] 04-23-2024 Hospital Discharge instructions Patient [...] Treatment for this condition includes: Antibiotic medicine. Bkpz-bft-ibaybtf medicines to treat discomfort. Drinking enough water [...] Follow these instructions at home: Medicines Take olho-saq-lvgjahs and prescription medicines only as told by [...] provider. Document Revised: 09/09/2020 Document Reviewed: 09/09/2020 Assembly Patient Education 2022 [employer]. Follow Up Care 06/03/2023 20:13:28 With:Amanda BARRIOS Address: [address] [place], [place] [phone] [facility] (1) When:Within 3 Day(s) [facility]04-22-2024 Evaluation + Plan noteExtracted from: Title:ED Note Author:Elliott Hicks PA-C te:06/03/23 UTI (urinary tract infection ) (N39.0: Urinary tract infection, site not specified) Orders: cephalexin, 500 mg = 1 cap(s), Oral, q6hr, X 7 day(s), # 28 cap(s), Refills(s) 0, Pharmacy: [id number], 154, cm, 06/03/23 20:33:00 EDT, Height/Length [...] Nausea/Vomiting, # 12 tab(s), Refills(s) 0, Pharmacy: [id number], 154, cm, 06/03/23 20:33:00 EDT, Height/Length Dosing, 71.8, kg, 06/03/23 20:33:00 EDT, Weight Dosing Basic Metabolic Panel Beta hCG Qual CBC w/ Auto Diff eGFR Extra Blackman Tube Extra SST Tube Hepatic Function Panel Lipase Level UA with Cult Rflx Urine Culture Future Appointments Appointment Date:06/04/2023 11:20:00 AM Scheduled Provider:Amanda BARRIOS CNP Location:[facility] Appointment Type: Open Diagnostic Tests Pending * Urine Culture 06/03/23 [facility]03-09-2024 Hospital Discharge instructions Patient Education 04/20/2023 [...] beverage between alcoholic drinks. General instructions Take oxlm-esa-kicndlc and prescription medicines only as told by your health care provider. Do not drive after drinking any amount of alcohol. Plan for a designated feeder driver or another way to go home. [...] the National Suicide Prevention Lifeline at or 709. This is open 24 hours a day. Text the Crisis Text Line at 599332. Summary Alcohol intoxication occurs when a person [...] provider. Document Revised: 04/16/2022 Document Reviewed: 04/16/2022 Assembly Patient Education 2022 [employer]. Follow Up Care 04/19/2023 21:58:10 With:Marie Monzon [phone] Address:Unknown When:04/22/2023 With:Amanda BARRIOS Address: [address] [place] [address] [facility] (1) When:04/22/2023 Comments:Follow-up with your primary care provider in 3 to 5 days. If symptoms worsen, do not improve, or new symptoms arise please report back to emergency department for further evaluation. [facility]03-08-2024 Evaluation + Plan noteExtracted from: Title:ED [...] Date:05/01/2023 08:20:00 AM Scheduled Provider:Amanda BARRIOS CNP Location:[facility] Appointment Type:[facility]11-26-2023 NoteFishHoly Cross HospitalComment on above:Result Comment: Electronically Signed [...] SALOMÓN Singh Within 2 to 4 weeks [place] [address] [address] [place] [id number]- Additional Instructions: [facility] Additional Instructions: [facility]: [phone] Additional Instructions: [facility]. [facility] Center[facility] Cronin [phone] Additional Instructions: Chemical Dependency: Additional Instructions: Diamante Cleveland Within 2 to 4 days 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 Involuntary movements (R25.9: Unspecified abnormal [...] transient in nature. Advised by the emergency chief librarian circulation department that patient had seized at home but [...] I have been advised by the emergency chief librarian circulation department that the local rehab program called get [...] and evaluated neurologically. We will ask for child protective services social worker to assist Ordered: Consult to [...] had emergency department visitations both here in [place] with withdrawal symptoms and had access to Ativan, patient implies over a week ago at a inpatient facility in [place] described above been given phenobarbital which could [...] Cardiac Monitoring CBC w/ Auto Diff Clinical [place] Withdrawal Assessment Clinical [place] Withdrawal Assessment Clinical [place] Withdrawal Assessment Clinical [place] Withdrawal Assessment Communication Order Physician to Nursing [...] case with the hospitalist Elisa Rodrigues NP 1. Involuntary movements (R25.9: Unspecified abnormal involuntary [...] View XR Knee Complete 4+ Views Left [facility]11-25-2023 Hospital Discharge instructions Patient Education 2023 15:26:41 Alcohol Withdrawal Syndrome, Zmhl-dg-Mvhx Alcohol Withdrawal Syndrome When a person who [...] away. Follow these instructions at home: Take oqzp-ptd-wgiuipz and prescription medicines only as told by [...] provider. Document Revised: 12/22/2021 Document Reviewed: 12/19/2020 Assembly Patient Education 2022 [employer]. 2023 15:26:41 Alcohol Use Disorder Alcohol Use [...] facility. Counseling. This may involve motivational interviewing ([place]), family therapy, or cognitive behavioral therapy (CBT). [...] physical reaction when you drink (aversion therapy). [place] help groups such as Alcoholics Anonymous (AA). These groups are led by people who have quit drinking. The groups provide emotional support, advice, and guidance. Some people with this condition benefit from a combination of treatments provided by specialized substance use treatment centers. Follow these instructions at home: Medicines Take kwsu-gtx-wuqmyhk and prescription medicines only as told by [...] the National Suicide Prevention Lifeline at or 798 in the U.S. This is open 24 hours a day in the U.S. Text the Crisis Text Line at 783701 (in the U.S.). Summary Alcohol use disorder [...] provider. Document Revised: 12/22/2021 Document Reviewed: 12/17/2019 Assembly Patient Education 2022 [employer]. 2023 15:26:41 Alcohol Intoxication, Sped-rb-Rnao Alcohol Intoxication Alcohol intoxication happens when you [...] water) between your drinks. General instructions Take maig-cou-axwjwxy and prescription medicines only as told by your doctor. Do not drive after drinking any amount of alcohol. Plan for a designated feeder driver or another way to go home. [...] the National Suicide Prevention Lifeline at or 697 in the U.S. This is open 24 [...] provider. Document Revised: 12/22/2021 Document Reviewed: 12/05/2021 Assembly Patient Education 2022 [employer]. 2023 15:26:41 Alcohol Abuse and Nutrition Alcohol [...] health care provider or diet and nutrition aide (dietitian) will work with you to design [...] provider. Document Revised: 12/22/2021 Document Reviewed: 12/19/2020 Assembly Patient Education 2022 [employer]. 2023 15:26:41 Alcohol Abuse and Dependence Information, [...] for Disease Control and Prevention: www.cdc.gov National [place] on Alcohol Abuse and Alcoholism: www.niaaa.nih.gov Alcoholics [...] department or call: Your local emergency services (721 in the U.S.). A suicide crisis helpline, such as the National Suicide Prevention Lifeline at or 498 in the U.S. This is open 24 [...] provider. Document Revised: 12/22/2021 Document Reviewed: 04/07/2019 Assembly Patient Education 2022 [employer]. Follow Up Care 2023 00:52:31 With:Anthony SINGLETARY, SALOMÓN Singh Address: [address] [address] When:2 to 4 weeks With:[facility] Address:Unknown When: Unknown With:[facility]: [phone] Address:Unknown When: Unknown With:[employer] [facility] [phone] Address:Unknown When: Unknown With:Chemical Dependency: Address:Unknown When: Unknown With:Diamante Cleveland Address: [address] [place] [address], [address] [address] Business (1) When:2 to 4 days [facility]11-25-2023 NoteFisher [facility]itan HospitalComment on above:Result Comment: Electronically Signed By: Azra HOGAN DO.ella\Date and Time Signed: 01/05/23 08:01 [id number] Evaluation + Plan note Extracted from: Title:ED [...] Troponin 0 Hr. XR Chest Single View [facility]11-22-2023 Hospital Discharge instructions Patient Education 01/02/2023 [...] beverage between alcoholic drinks. General instructions Take uugn-cgw-kqeuvlb and prescription medicines only as told by your health care provider. Do not drive after drinking any amount of alcohol. Plan for a designated feeder driver or another way to go home. [...] the National Suicide Prevention Lifeline at or 930 in the U.S. This is open 24 [...] provider. Document Revised: 12/22/2021 Document Reviewed: 12/05/2021 Assembly Patient Education 2022 [employer]. 01/02/2023 04:48:50 Palpitations Palpitations Palpitations are feelings [...] ask your health careprovider. General instructions Take nipo-arb-imwukaq and prescription medicines only as told by [...] provider. Document Revised: 06/21/2021 Document Reviewed: 06/21/2021 Assembly Patient Education 2022 [employer]. Follow Up Care 01/02/2023 00:36:12 With:Diamante Celveland Address: [address] [place] [address], [address] [place] [phone] Business (1) When:Within 3 Day(s) [facility]11-04-2023 History of Present illness Narrative* Eric Najera LCSW - 12/15/2022 7:38 PM EDT EPAT - Social Work Psychiatric Assessment Arrival Details Mode of Arrival: Ambulatory Admission Source: Other (Comment) Admission Type: Involuntary ([facility], detox [place]) EPAT Assessment Start Date: 12/15/22 EPAT Assessment Start Time: 1422 Name of Felt Cutting Machine Operator: FRANKLIN Smith History of Present Illness Admission Reason: Psych assessment HPI: 32yr old female with history of bipolar disorder, anxiety disorder, dually diagnosed with alcohol use dependence and opioid use disorder and h/o other substances, presenting to the ED after change of mental status apparent at [facility] (aka [facility]) which is a detoxification unit within [facility]. The transfer to ED was last night and initial attempt at [facility] psych assess was midnight. She was not able to participate meaningfully for it, so this psych assess was re-ordered this afternoon with enough improvement for this interview. The referral to ED from [facility] was d/t disorientation and hallucinations that were [...] She said she was with [place] [address]. When asked specifically about detox hx, she said [facility] 2010. She was at [facility] just a few days ago (12/10). Oriented only to self and generally to location that she's in the hospital. SW Readmission Information Readmission within 30 Days: Yes Previous ED Visit Date and Reason : 12/10 at [facility], then to [facility] until transfer for this assessment Previous Discharge [...] Psychiatric History: Chart history indicates outpatient at [facility]. Pt unable to recall any Past Psychiatric Meds/Treatments: None known per patient. The following is the only info found in chart: Has been treated at [facility]; has not taken any of her psychotropic prescriptions for several months due to weight gain; Chart only shows Vraylar 1.5. Past Violence/Victimization History: unable to assess Current Mental Health Contacts Visiting Housekeeper Name/Phone Number: unknown Visiting Housekeeper Last Appointment Date: unknown Provider Name/Phone Number: [facility] Provider Last Appointment Date: November Support [...] does he live? With his father in [place]. Q: When do you see him? Every [...] Calculated Risk Score: No intervention is necessary [place] Suicide Severity Rating Scale (Screener/Recent Self-Report) 1. [...] of Arrival: Ambulatory Admission Source: Other (Comment) ([facility]) Admission Type: Involuntary EPAT Assessment Start Date: 12/15/22 EPAT Assessment Start Time: 19 Name of Felt Cutting Machine Operator: Emy Art [facility] History of Present Illness Admission Reason: Evaluation HPI: 32yr old female with history of mood disorder, anxiety, alcohol use disorder, and Opioid Use Disorder presenting to the ED after change of mental status apparent at [facility] which is a detoxification unit within [facility]. Provider Note and chart history is reviewed. [...] terrible historian reporting she has been at [facility] for [facility] for the last 9 months . She was actuallyadmitted there on 12/12. She is not reporting thoughts of harming herself or others. SW Readmission Information Readmission within 30 Days: Yes Previous ED Visit Date and Reason : 12/10 at [facility] Previous Discharge Date and Location: 12/10 [...] to assess: Chart history indicates outpatient at [facility] Past Psychiatric Meds/Treatments: per chart stopped medications except for Vraylar 1.5 several months ago due to weight gain Past Violence/Victimization History: unable to assess Current Mental Health Contacts Visiting Housekeeper Name/Phone Number: unknown Visiting Housekeeper Last Appointment Date: unknown Provider Name/Phone Number: [facility] Provider Last Appointment Date: November Support System: Immediate family Living Arrangement: House Income Information Employment Status for: Patient Employment Status: Other (Comment) (unable to assess) [employer]/Education History Current or Previous Service: None Education Level: (unable to assess) Social/Cultural History Social History: living in [place] with mother and 10yr old son Important [...] now?: No Calculated Risk Score: Potential Risk [place] Suicide Severity Rating Scale (Screener/Recent Self-Report) 1. [...] had been sent to [facility] for detox on 12/12.[facility] nursing staff [...] is wandering around asking the Tele- Health validation scientist to help her find her son and then says the same of her phone. She wanders in and out of her room and is briefly upset what do you mean I'm not at home . She is oriented to self and somewhat situation. The patient repor ts she is attending [facility] but this in not accurate. She needs [...] presents with Psychiatric Evaluation Pt is from [facility] and is going through alcohol withdrawal, pt [...] is an 32 y.o. female presenting for [facility] Chief Complaint Patient presents with Psychiatric Evaluation Pt is from [facility] and is going through alcohol withdrawal, pt [...] [AH] Amy Steele MD [SP] Jessica Mcdowell, Diagnoses as of 12/15/22 1516 Alcohol withdrawal [...] or schizoaffective type with some psychotic features. [place] slip was placed to prevent the patient [...] presents with Psychiatric Evaluation Pt is from [facility] and is going through alcohol withdrawal, pt [...] in setting of etoh use disorder history [] 2249 Acute Toxicology Panel, Blood Acute tox [...] Transition of Care Note. I received Lyle Ramos Bailey in signout from Dr. Howe. Please see the previous ED provider note for all HPI, PE and MDM up to the time of signout at 0100. This is in addition to the primary record. In brief Lyle Bailey is an 32 y.o. female presenting for Chief Complaint Patient presents with Psychiatric Evaluation Pt is from [facility] and is going through alcohol withdrawal, pt [...] presents with Psychiatric Evaluation Pt is from [facility] and is going through alcohol withdrawal, pt [...] transfer. She has now been accepted to [facility] and will be transferred there for further psychiatric work-up. Procedure Procedures Rosa Elena Howe MD documented in this [facility] Work Phone: [phone] 910-285111-03-2023 Miscellaneous Notes* Significant Event - John Tobias [...] of a correctional facility, provided that the enxdev-cws-mbqpc period shall be extended by the length of any hospitalization or incarceration of the person thatoccurred within the ngvwpw-sim-jbwuh period. (ii) Within the forty-eight months prior to the filing of an affidavit seeking court-ordered treatment of the person under section 5122.111 of the Revised Code, the lack of compliance resulted in oneor more acts of serious violent behavior toward self or others or threats of, or attempts at, serious physical harm to self or others, provided that the npglx-xbyfw-ufoks period shall be extended by the length of any hospitalization or incarceration of the person that occurred within the xyhzl-lncgr-qledy period. (c) The person, as a result [...] physician, licensed clinical psychologist, health or police cadet, feed handler or state federal relations deputy director. (Statement shall include the circumstances under which [...] the emergency department for psychiatric evaluation from [facility]. She wasbeing treated for alcohol withdrawal. On my evaluation she appears tired, agitated, she is pacing, she is unable to carry on a linear and coherent conversation. She appears internally stimulated. 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 John Tobias MD 12/15/2022 Place of Employment: [facility] STATEMENT OF OBSERVATION BY PSYCHIATRIST, LICENSED PHYSICIAN, OR LICENSED CLINICAL PSYCHOLOGIST, IFAPPLICABLE Place of Observation (e.g., [facility], general hospital, office, emergency facility) (If applicable, [...] of a correctional facility, provided that the miribb-zkf-rnvyt period shall be extended by the length of any hospitalization or incarceration of the person thatoccurred within the vodwzd-rne-esaaf period. (ii) Within the forty-eight months prior to the filing of an affidavit seeking court-ordered treatment of the person under section 5122.111 of the Revised Code, the lack of compliance resulted in oneor more acts of serious violent behavior toward self or others or threats of, or attempts at, serious physical harm to self or others, provided that the ldzpt-xpstg-zlvhb period shall be extended by the length of any hospitalization or incarceration of the person that occurred within the jhmwe-ihkfn-dwhge period. (c) The person, as a result [...] physician, licensed clinical psychologist, health or police cadet, feed handler or state federal relations deputy director. (Statement shall include the circumstances under which [...] the emergency department for psychiatric evaluation from [facility]. She wasbeing treated for alcohol withdrawal. On my evaluation she appears tired, agitated, she is pacing, she is unable to carry on a linear and coherent conversation. She appears internally stimulated. 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 Rosa Elena Howe MD 12/16/2022 Place of Employment: [facility] STATEMENT OF OBSERVATION BY PSYCHIATRIST, LICENSED PHYSICIAN, OR LICENSED CLINICAL PSYCHOLOGIST, IFAPPLICABLE Place of Observation (e.g., [facility], [facility], office, emergency facility) (If applicable, please complete) Rosa Elena Howe MD 12/16/2022 documented in this [facility] Work Phone: 1(414) 265-584211-03-2023 Note* Significant Event - John Tobias MD [...] of a correctional facility, provided that the pvwvlb-wcp-mdcwl period shall be extended by the length of any hospitalization or incarceration of the person thatoccurred within the vjhatp-dsn-nwlrk period. (ii) Within the forty-eight months prior to the filing of an affidavit seeking court-ordered treatment of the person under section 5122.111 of the Revised Code, the lack of compliance resulted in oneor more acts of serious violent behavior toward self or others or threats of, or attempts at, serious physical harm to self or others, provided that the taodg-dynzd-ztjww period shall be extended by the length of any hospitalization or incarceration of the person that occurred within the rvxfo-gfjax-nmair period. (c) The person, as a result [...] physician, licensed clinical psychologist, health or police cadet, feed handler or state federal relations deputy director. (Statement shall include the circumstances under which [...] the emergency department for psychiatric evaluation from [facility]. She wasbeing treated for alcohol withdrawal. On my evaluation she appears tired, agitated, she is pacing, she is unable to carry on a linear and coherent conversation. She appears internally stimulated. 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 John Tobias MD 12/15/2022 Place of Employment: [facility] STATEMENT OF OBSERVATION BY PSYCHIATRIST, LICENSED PHYSICIAN, OR LICENSED CLINICAL PSYCHOLOGIST, IFAPPLICABLE Place of Observation (e.g., [facility], general hospital, office, emergency facility) (If applicable, please complete) John Tobias MD 12/15/2022 [facility] Work Phone: 1(311) 344-821111-03-2023 Note* Significant Event - Rosa Elena Howe [...] in a hospital or receipt of services [facility] forensic or other mental health unit of a correctional facility, provided that the zfsnmc-ykb-wcqbp period shall be extended by the length of any hospitalization or incarceration of the person thatoccurred within the ifowfc-dpe-irlpo period. (ii) Within the forty-eight months prior to the filing of an affidavit seeking court-ordered treatment of the person under section 5122.111 of the Revised Code, the lack of compliance resulted in oneor more acts of serious violent behavior toward self or others or threats of, or attempts at, serious physical harm to self or others, provided that the ruwda-gkrrb-wpdsu period shall be extended by the length of any hospitalization or incarceration of the person that occurred within the kgruj-tqnci-yqaan period. (c) The person, as a result [...] physician, licensed clinical psychologist, health or police cadet, feed handler or state federal relations deputy director. (Statement shall include the circumstances under which [...] the emergency department for psychiatric evaluation from [facility]. She wasbeing treated for alcohol withdrawal. On my evaluation she appears tired, agitated, she is pacing, she is unable to carry on a linear and coherent conversation. She appears internally stimulated. 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 Rosa Elena Howe MD 12/16/2022 Place of Employment: [facility] STATEMENT OF OBSERVATION BY PSYCHIATRIST, LICENSED PHYSICIAN, OR LICENSED CLINICAL PSYCHOLOGIST, IFAPPLICABLE Place of Observation (e.g., [facility], general hospital, office, emergency facility) (If applicable, please complete) Rosa Elena Howe MD 12/16/2022 [facility] Work Phone: 1(846) 856-113110-30-2023 Hospital Discharge instructions Patient Education 12/10/2022 21:57:34 [...] beverage between alcoholic drinks. General instructions Take hiap-tjj-rbvwmsc and prescription medicines only as told by your health care provider. Do not drive after drinking any amount of alcohol. Plan for a designated feeder driver or another way to go home. [...] the National Suicide Prevention Lifeline at or 390 in the U.S. This is open 24 [...] provider. Document Revised: 12/22/2021 Document Reviewed: 12/05/2021 Assembly Patient Education 2022 [employer]. Follow Up Care 12/10/2022 17:22:08 With:[facility] Address:Unknown When:12/13/2022 21:39:40 With:Diamante Cleveland Address: [address] [place] [address], [place] [phone] Business (1) When:Within 3 Day(s) [facility]10-30-2023 Evaluation + Plan noteExtracted from: Title:ED Note Author:Eric Forbes DO Date: Alcohol withdrawal (F10.939: Alcohol use, unspecified with withdrawal, unspecified) Ordered: lorazepam, 1 mg = 1 tab(s), Oral, q8hr, Take one by mouth every eight hours as needed, X 4 day(s), # 12 tab(s), Refills(s) 0, Pharmacy: [facility], 157, cm, 12/10/22 8:08:00 EDT, Height/Length [...] nausea, # 10 tab(s), Refills(s) 0, Pharmacy: [facility], 157, cm, 12/10/22 8:08:00 EDT, Height/Length [...] With Cult Reflex XR Chest Single View [facility]10-30-2023 Evaluation + Plan noteExtracted from: Title:ED Note Author:Fabricio Gao PA-C te:12/10/22 1. Alcohol intoxication (F10 .929: Alcohol use, unspecified with intoxication, unspecified) Orders: lorazepam, 2 mg = 2 tab(s), Tab, Oral, Once, Stop date 12/10/22 17:27:00 EDT, STAT, Start date 12/10/22 17:27:00 EDT, 12/10/22 17:27:00 EDT Ethanol Level [facility]10-30-2023 Hospital Discharge instructions Patient Education 12/10/2022 [...] groups. Follow these instructions at home: Take jebx-gxq-pcfzazl and prescription medicines (including vitamin supplements) only [...] provider. Document Revised: 12/22/2021 Document Reviewed: 12/19/2020 Assembly Patient Education 2022 [employer]Und[employer]. Follow Up Care 12/10/2022 07:57:33 With:[facility] Address:Unknown When:12/13/2022 11:42:52 With:Diamante Cleveland Address: [address] [place] [address], [address] [place] [phone] [facility] (1) When:Within 3 Day(s) [facility]10-20-2023 Hospital Discharge instructions Patient Education 11/30/2022 [...] numbers. This can be done either in Palestinian (U.[place] or metric measurements. Note that charts and online BMI calculators are available to help you find your BMI quickly and easily without having to do these calculations yourself. To calculate your BMI in Palestinian ([place].S.) measurements: 1.Measure your weight in pounds [...] Association: www.heart.org National Heart, Lung, and Blood [place]: www.nhlbi.nih.gov Summary Body mass index (BMI) is a number that is calculated from a person's weight and height. BMI may help estimate how much of a person's weight is composed of fat. BMI can help identify thosewho may be at higher risk for certain medical problems. BMI can be measured using Palestinian measurements or metric measurements. BMI charts are used to identify whether you are underweight, normal weight, overweight, or obese. This information is not intended to replace advice given to you by your health care provider. Make sure you discuss any questions you have with your health care provider. Document Revised: 10/21/2019 Document Reviewed: 08/28/2019 Assembly Patient Education 2022 Me[employer]. 11/30/2022 14:00:38 Dysuria Dysuria Dysuria is pain [...] Follow these instructions at home: Medicines Take btls-hfb-edfgwub and prescription medicines only as told by [...] provider. Document Revised: 09/09/2020 Document Reviewed: 09/09/2020 Assembly Patient Education 2022 [employer]. 11/30/2022 14:00:37 Safe Sex Safe Sex Practicing [...] STI. Follow these instructions at home: Take ehlr-gjs-bctsmkr and prescription medicines only as told by [...] provider. Document Revised: 07/04/2020 Document Reviewed: 07/04/2020 Assembly Patient Education 2022 MeUndies. Follow Up Care 11/30/2022 13:08:52 With:Diamante Cleveland CNP Address: [address] [place] [address], [place] [phone]- When: Unknown [facility] [phone] Evaluation + Plan note Diagnostic Tests Pending * Chlamydia/Gonococcus, MOISES 11/30/22 * Urine Culture 11/30/22 [facility]10-03-2023 Evaluation + Plan note Diagnostic Tests Pending * Estradiol Level 11/13/22 * Testosterone F&T 11/13/22 * HIV Screen 4th Generation wRfx 11/13/22 * Hepatitis B Surface Antigen 11/13/22 * RPR with Conf Rfx 11/13/22 * FSH Level 11/13/22 * DHEAS 11/13/22 [facility]10-03-2023 Evaluation + Plan note Diagnostic Tests Pending * Thyroid Perox.tpo Ab 11/13/22 [facility]09-24-2023 Hospital Discharge instructions Patient Education 11/04/2022 [...] health careprovider. Avoid caffeine, alcohol, and certain ujjv-xai-yfztfit cold medicines. These may make you feel worse. Ask your pharmacist which medicines to avoid. General instructions Take qljy-hdh-tmfxhqg and prescription medicines only as told by [...] Depression Association of [place] (ADAA): www.adaa.org National [place] on Mental Illness (SHEY): www.shey.org Contact a [...] department or: Call your local emergency services (385 in the [place].S.). Call a suicide crisis helpline, such as the National Suicide Prevention Lifeline at or 270 in the U.S. This is open 24 hours a day in the U.S. Text the Crisis Text Line at 194995 (in the U.S.). Summary Taking steps to [...] provider. Document Revised: 08/23/2021 Document Reviewed: 05/21/2021 [facility] Patient Education 2022 [employer]. Follow Up Care 11/04/2022 12:21:25 With:[facility] Address:Unknown When:11/07/2022 15:59:09 With:Diamante Cleveland Address: [address] [place] [address], [address] [place] [address] Business (1) When:11/07/2022 15:58:15 Comments:Make sure to follow-up with your primary doctor for blood pressure check as well to make sure you are not developing hypertension. Follow-up with [facility] health. Return to the emergency room if your symptoms recur or any new symptoms. [facility]09-24-2023 Evaluation + Plan noteExtracted from: Title:ED Note Author:Gladys Saini M.D. te:11/04/22 1. Anxiety (F41.9: Anxiety d isorder, unspecified) Orders: hydrOXYzine, 50 mg = 1 mL, Injection, IntraMuscular, Once, Stop date 11/04/22 12:35:00 EDT, STAT, Start date 11/04/22 12:35:00 EDT, 11/04/22 12:35:00 EDT hydrOXYzine, 1-2 cap(s), Oral, QID, PRN as needed for anxiety, # 30 cap(s), Refills(s) 0, Pharmacy: [facility], 158, cm, 11/04/22 12:27:00 EDT, Height/Length Dosing, 74.7, kg, 11/04/22 12:27:00 EDT, Weight Dosing lorazepam, 1 mg = 1 tab(s), Tab, Oral, Once, Stop date 11/04/22 13:36:00 EDT, STAT, Start date 11/04/22 13:36:00 EDT, 11/04/22 13:36:00 EDT Automated Diff Basic Metabolic Panel CBC w/ Auto Diff eGFR [facility]07-18-2023 Hospital Discharge instructions Follow Up Care 08/28/2022 09:06:34 With:Lorie Morocho MD, [facility], [facility] Address: [address] [place] [phone] When: only if needed [facility] 07-08-2023 Evaluation + Plan noteExtracted [...] SALOMÓN Singh Within 2 to 4 weeks [address] [place] [address]- Additional Instructions: Illegal Drug Use Information, Adult [...] benzodiazepines which I believe is the primary feeder driver of above. We will continue as [...] After 24 Hours Restraint Initiate Non-Violent / Osy-Ivib-Jlibkbekysf Behavior Restraint Monitoring Non-Violent / Non-Self- Destructive Behavior Restraint Progress Note Routine Capillary Glucose POC Salicylate Level Saline Lock Insert Straight Cath Troponin 0 Hr. UA With Cult Reflex XR Chest Single View Future Appointments Appointment Date:10/17/2022 09:20:00 AM Scheduled Provider:Amanda BARRIOS CNP Location:[facility] Appointment Type:[facility]07-08-2023 [facility]:Result Comment: Electronically Signed By: Matthias SINGLETARY, aKm Medrano\.br\Date and Time Signed: 08/18/22 09:11 [id number] Hospital Discharge instructions Patient Education 08/18/2022 08:40:12 [...] values. ?Lying and crime, such as stealing. Group Home or long term. This can affect your ability to find [...] Substance Abuse and Mental Health Services Administration ([facility]): ?Treatment finder: https://www.oregon state tuberculosis hospitala.gov/find-help ?National helpline: 6-833-043-HELP (0025) Contact a health care provider if: You [...] department or: Call your local emergency services (283 in the U.S.). Call a suicide crisis helpline, such as the National Suicide Prevention Lifeline at or 981 in the U.S. This is open 24 hours a day in the U.S. Text the Crisis Text Line at 356357 (in the U.S.). Summary Illegal drugs are [...] provider. Document Revised: 08/23/2021 Document Reviewed: 05/26/2021 Assembly Patient Education 2022 [employer] Inc. 08/18/2022 08:40:02 Toxic Metabolic Encephalopathy Toxic [...] elderly, have dementia, or live in a mcfp. Are not getting enough fluids. Have poor [...] Follow these instructions at home: Medicines Take oket-pqz-ndzawea and prescription medicines only as told by your health care provider. Do not start taking any new medicines, including qhqr-ldi-wkhvkeb medicines, without first checkingwith your health care [...] provider. Document Revised: 11/15/2020 Document Reviewed: 11/15/2020 Assembly Patient Education 2022 MeUndies. Follow Up Care 08/16/2022 23:31:02 With:Anthony SINGLETARY, SALOMÓN Singh Address: [address] [place] [id number]- When:2 to 4 weeks [facility]07-07-2023 NoteFishHoly Cross HospitalComment on above:Result Comment: Electronically Signed By: Matthias SINGLETARY, Kam Medrano\.br\Date and Time Signed: 08/17/22 11:48 [id number] Hospital Discharge instructions Follow Up Care 07/17/2022 11:17:20 With:Amanda BARRIOS CNP Address: [address] [place] [address]- When:Within 2 Month(s) [facility] 04-30-2023 Discharge summary Author Gautam arteaga [facility] June 10, 2022 7:53am Note Date/Time June 10, 2022 7:5 2am [facility] [address] [place] [address] Discharge Summary Signed Patient: Lyle Bailey MR#: [id number] : 1990 Acct:[id number] Age/Sex: 32 / F Adm Date: 3 Loc: Room: [address] [place] [address]: Nguyễn Burrows MD Copies to: MD Amanda Escamilla SHARK BIOLOGIST, SYSTEMS INTEGRATOR~ Providers Date of Discharge: 06/10/22 Discharging Provider: [...] tablet by mouth once daily Follow Up: [facility] [Outside] [facility] [Outside] Amanda Barrios APRN, COMPONENT DESIGN ENGINEER-C [Primary Care Provider] - (Please schedule an appt with your primary provider for any medical needs. ) Documented By: Gautam Burrows MD 3 0749 Signed By: <Electronically signed by Gautam Burrows MD> 06/10/22 0753 [facility] Work Phone: 1(635) 186-561404-29-2023 Progress note Author Gautam arteaga [facility] June 09, 2022 7:51am Note Date/Time June 09, 2022 7:5 1am [facility] [address] [place] [address] Psychiatry Progress Note Signed Patient: Lyle Bailey MR#: [id number] : 1990 Acct:[id number] Age/Sex: 32 / F Adm Date: 3 Loc: Room: [address] [place] [address] Type : ADM IN Attending Dr: Nguyễn [...] signed by Gautam Burrows MD> 06/09/22 0751 [facility] Work Phone: 1(204) 334-630404-28-2023 History and physical note Author Gautam arteaga [facility] June 08, 2022 9:58am Note Date/Time June 08, 2022 9:5 6am [facility] [address] [place] [address] Psychiatry H&P Signed Patient: Lyle Bailey MR#: [id number] : 1990 Acct:[id number] Age/Sex: 32 / F Adm Date: 3 Loc: 1S Room: [address] [place] [address] Type: ADM IN Attending Dr: Nguyễn Burrows MD Copies to: MD Amanda Escamilla APRN, SYSTEMS INTEGRATOR~ Date of Service: 06/08/2022 HPI History of [...] and has 1 son. Pt recently here lu6Efsue Meds Medications and Allergies Allergies codeine Allergy [...] 07:32 06/08/22 07:32 06/08/22 07:32 06/08/22 07:32 04/28/23 08:31 Results Labs 06/07/22 09:20 06/07/22 09:20 [...] Appearance Clear Urine pH 5.5 Ur Specific [place] 1.032 H Urine Protein 30 H Urine [...] signed by Gautam Burrows MD> 06/08/22 0958 [facility] Work Phone: 1(898) 499-599203-14-2023 Evaluation note* Encounter Date Diagnosis Assessment Notes [...] hepatic coma, unspecified chronicity (ICD-10 - B19.11) [employer] Other 01-31-2023 Hospital Discharge instructions* Discharge Instructions* Leandro Rojas MD - 03/13/2022 1:22 PM EST You were seen in the emergency department for evaluation by [facility]. EKG was normal. Your vitalsigns were [...] going through withdrawal. documented in this encounterBON [employer] Phone: 1(365) 705-475508-09-2022 Hospital Discharge instructions Patient Education 09/19/2021 10:35:36 Steps to Quit Smoking, Llkx-ix-Lkkv Steps to Quit Smoking Smoking tobacco is [...] a prescription, and some you can buy akun-faq-zqrzcza. Some medicines may contain a drug called [...] 11/24/2009 Document Revised: 04/17/2019 Document Reviewed: 04/18/2019 Assembly Patient Education 2019 Me[employer]. 09/19/2021 10:35:35 Obesity, Adult, Fsaa-ta-Xmye Obesity, Adult Obesity is having too much [...] food choices, such as grocery stores and [employer] markets. What are the signs or symptoms? [...] eat. ?How much exercise you get. Take kcao-hzb-wyprhjs and prescription medicines only as told by [...] 04/21/2012 Document Revised: 10/02/2018 Document Reviewed: 10/02/2018 [facility] Patient Education [address] [facility] 06-16-2022 Hospital Discharge instructions Patient Education 07/26/2021 22:07:43 Hepatitis C, Sdtd-iw-Cnmk Hepatitis C Hepatitis C is a liver [...] Follow these instructions at home: Medicines Take tzvz-rwh-gntakts and prescription medicines only as told by your doctor. Take your antiviral medicine as told by your doctor. Do not stop taking the antiviral medicine evenif you start to feel better. Do not take any new medicines unless your doctor says that this is okay. This includes yhmp-oaj-mxoyeic medicines and control pills. Activity Rest when [...] not have soap and water, use hand computer drafter. Do not share needles or syringes. Practice safe sex and use condoms. Do not handle blood or body fluids without gloves or other protection. Avoid getting tattoos or piercings in places that are not clean. General instructions Do not share toothbrushes, nail clippers, or razors. Wash your hands often with soap and water. If you do not have soap and water, use hand computer drafter. Cover any cuts or open sores on [...] 01/10/2009 Document Revised: 01/10/2018 Document Reviewed: 03/05/2017 Assembly Patient Education 2020 MeUndies. 07/26/2021 22:07:43 Constipation, Adult Constipation, Adult Constipation [...] in fiber, or overly processed, such as lao fries, hamburgers, cookies, candies, and soda. Drink enough fluid to keep your urine clear or pale yellow. General instructions Exercise regularly or as told by your health care provider. Go to the restroom when you have the urge to go. Do not hold it in. Take perd-omg-fwrxwss and prescription medicines only as told by [...] 10/26/2004 Document Revised: 01/10/2018 Document Reviewed: 07/18/2016 Assembly Patient Education 2020 [employer]. 07/26/2021 22:07:43 Abdominal Pain, Adult Abdominal Pain, [...] Follow these instructions at home: Medicines Take pwvz-qqr-cscynni and prescription medicines only as told by [...] Watch your condition for any changes. Take dxsy-vaz-rlnddlj and prescription medicines only as told by [...] 11/07/2005 Document Revised: 06/08/2019 Document Reviewed: 06/08/2019 [employer] Patient Education 2020 [employer]. Follow Up Care 07/26/2021 18:02:56 With:Amanda BARRIOS Address: [address] [place] [phone] Business (1) When:07/29/2021 21:42:35 Comments:Follow-up with your primary care provider in 3 to 5 days. If symptoms worsen, do not improve, new symptoms arise please report back to emergency department immediately. Take MiraLAX daily to help promote a normal bowel movement. [facility]05-24-2022 Hospital Discharge instructions Patient Education 07/04/2021 15:44:46 Steps to Quit Smoking, Ngak-rw-Fnwp Steps to Quit Smoking Smoking tobacco is [...] a prescription, and some you can buy cwos-xya-qmbfmpf. Some medicines may contain a drug called [...] as websites. Examples include QuitGuide from the [employer] and smokefree.gov What things can I do to make it easier to quit? Talk to your family and friends. Ask them to support and encourage you. Call a phone quitline (8-726-ABBCNOW), reach out to support groups, or work [...] 11/24/2009 Document Revised: 04/17/2019 Document Reviewed: 04/18/2019 Assembly Patient Education 2020 [employer]. 07/04/2021 15:44:45 Obesity, Adult, Uhus-es-Xdbe Obesity, Adult Obesity is having too much [...] food choices, such as grocery stores and [employer] markets. What are the signs or symptoms? [...] eat. ?How much exercise you get. Take cdpk-qbr-vaidzed and prescription medicines only as told by [...] 04/21/2012 Document Revised: 10/02/2018 Document Reviewed: 10/02/2018 Assembly Patient Education 2020 [employer]. Follow Up Care 06/19/2021 13:30:22 With:Amanda BARRIOS CNP Address: [address] [place] [address]- When:Within 6 Month(s) [facility] 12-27-2021 NoteAdmission Information Patient: Lyle Bailey : 1990 Date of Admission: 02/05/2021 16:34:16 Date of Discharge: 02/06/2021 Code Status: Full Resuscitation PCP: Consult: Follow Up with Provider: With: Address: When: [facility] [address] [place] [address] [place] [address] 02/14/2021 09:45:00 Comments: Counseling Appointment with Nora [...] signed by Deacon Arnold MD 02/06/21 15:24 [facility]12-26-2021 Note Chief Complaint Alcohol intoxication, wishing to [...] the facility. She has never been admitted [facility]. She does live in [place], [place]. At time of evaluation, there is [...] care unit, hardwire monitor, continuous pulse oximetry [facility] protocol with as needed lorazepam, plasma ethanol [...] DTs, seizures Disposition Health Care Power of Sheet Heater or next of kin: Manisha Bailey, Family [...] 2 mg= 1 mL, IV Push, q15min, MS (more content not included)... [facility] Author Gautam arteaga [facility] June 10, 2022 7:53am Note Date/Time June 10, 2022 7:5 2am [facility] [address] [place] [address] Discharge Summary Signed Patient: Lyle Bailey MR#: [id number] : 1990 Acct:[id number] Age/Sex: 32 / F Adm Date: 3 Loc: Room: [address] [place] [address]: Nguyễn Burrows MD Copies to: MD Amanda Escamilla APRN, SYSTEMS INTEGRATOR~ Providers Date of Discharge: 06/10/22 Discharging Provider: [...] tablet by mouth once daily Follow Up: [facility] [Outside] [facility] [Outside] Amanda Barrios APRN, COMPONENT DESIGN ENGINEER-C [Primary Care Provider] - (Please schedule an appt with your primary provider for any medical needs. ) Documented By: Gautam Burrows MD [id number] Signed By: <Electronically signed by Gautam Burrows MD> 06/10/22 0753 [facility] Work Phone: Evaluation + Plan note Future Appointments Appointment Date:12/27/2021 03:00:00 PM Scheduled Provider:Amanda BARRIOS CNP Location:[facility] Appointment Type:[facility] Evaluation + Plan note Future Appointments Appointment Date:12/27/2021 03:00:00 PM Scheduled Provider:Amanda BARRIOS CNP Location:[facility] Appointment Type:[facility] Diagnostic Tests Pending * CBC w/ Auto Diff 07/04/21 * TSH With T4fr Reflex [facility] App[facility]ments Appointment Date:04/26/2022 01:40:00 PM Scheduled Provider:Amanda BARRIOS CNP Location:[facility] Appointment Type:[facility] Evaluation + Plan note Future Appointments Appointment Date:10/17/2022 09:20:00 AM Scheduled Provider:Amanda BARRIOS CNP Location:[facility] Appointment Type: Open [facility] [place] Evaluation + Plan note Future Appointments Appointment Date:10/17/2022 09:20:00 AM Scheduled Provider:Amanda BARRIOS CNP Location:[facility] Appointment Type: Open Diagnostic Tests Pending * Throat [facility] App[facility]ments Appointment Date:06/20/2023 01:20:00 PM Scheduled Provider:Amanda BARRIOS CNP Location:[facility] Appointment Type: ER/Hospital Follow Up [facility] Evaluation + Plan note Future Appointments Appointment Date:06/20/2023 01:20:00 PM Scheduled Provider:Amanda BARRIOS CNP Location:[facility] Appointment Type: ER/Hospital Follow Up Diagnostic Tests Pending * Chlam/GC/Trich,MOISES 06/17/23 * Vaginitis/Vaginosis, DNA Probe 06/17/23 * Urine Culture [facility]17[facility]23 [facility] Future Appointments Appointment Date:08/21/2023 08:20:00 AM Scheduled Provider:Amanda BARRIOS CNP Location[facility] Diagnosis Alcohol withdrawal syndrome with complication (HCC)- Primary documented in this encounter [facility] Work Phone: evaluation note* Diagnosis Temporary high blood pressure- Primary Elevated blood pressure reading without diagnosis of hypertension documented in this encounter [facility] Work Phone: evaluation noteNo assessment information available [facility] Work Phone: Evaluation note* Diagnosis Acute alcoholic intoxication with complication (HCC)- Primary documented in this encounter [facility] Phone: evaljsbvxf note* Diagnosis Encounter for psychological evaluation- Primary documented in this encounter [facility] Phone: evaliyijmb note* Diagnosis Onset Date Resolution Status Alcohol abuse acute Altered mental status acute Suicidal ideation acute [facility] Work Phone: Evaluation note* Diagnosis Onset Date Resolution Status Alcohol abuse acute Altered mental status acute Anxiety acute Depression acute Hep C w/o coma, chronic acut e Suicidal ideation acute [facility] Work Phone: Evaluation note* Diagnosis Alcohol withdrawal syndrome with complication (CMS/HCC)- Primary Bipolar affective disorder, currently manic, moderate (CMS/HCC) Bipolar I disorder, most recent episode (or current) manic, moderate documented in this encounter [facility] Work Phone: Evaluation note* Diagnosis Onset Date Resolution Status Acute psychosis acute [facility] Work Phone: History and physical note Author Gautam arteaga [facility] June 08, 2022 9:58am Note Date/Time June 08, 2022 9:5 6am [facility] [address] [place] [address] Psychiatry H&P Signed Patient: Lyle Bailey MR#: [id number] : 1990 Acct:[id number] Age/Sex: 32 / F Adm Date: 3 Loc: Room: [address] [place] [address] Type: ADM IN Attending Dr: Nguyễn Burrows [...] and has 1 son. Pt recently here [id number] Meds Medications and Allergies Allergies codeine Allergy [...] Appearance Clear Urine pH 5.5 Ur Specific [place] 1.032 H Urine Protein 30 H Urine [...] signed by Gautam Burrows MD> 06/08/22 0958 [facility] Work Phone: [place]iskkuz general Narrative - Reported* Type Description Date Medical History HX OF HEROIN ABUSE Medical History manic depression Medical History bipolar Medical History anxiety Surgical History No know Surgical history Hospitalization History CHILD X'S 1 [facility] Other Hospital course Narrative No data available for this section [facility] Hospital Discharge instructions* Instructions* Fredy Kay, - 05/03/2021 Call today or tomorrow for a follow up with [facility] for alcohol detoxification or follow up with No primary care provider on file.. Stop drinking alcohol. Call [facility] [phone] or go to [facility] at 7am [...] Care Everywhere. * Alcohol Detoxification and Withdrawal (Palest[place]) [facility]: Hospital Discharge instructions No data available for this section [facility] Additional Instructions Follow-up with outpatient detox [facility] are [facility] Work Phone: Hospital Discharge instructions Additional Instructions Follow-up with mental health Return to the ED if you develop worsening symptoms or [facility] Work Phone: Hospital Discharge instructions* Attachments The following attachments cannot be sent through Care Everywhere. * Alcohol Intoxication: Acute (Palestinian) [facility] Work Phone: Hospital Discharge instructions Additional Instructions Follow-up with your primary care doctor Return to ED if develop worsening symptoms or [facility] Work Phone: Hospital Discharge instructions Additional Instructions Do not use drugs [facility] Work Phone: Hospital Discharge instructions Additional Instructions If your symptoms return/worsen or you develop any further concerns or symptoms please see your doctor or return to the emergency department immediately.[facility] Work Phone: Hospital Discharge instructions Additional Instructions Regular Diet No Activity Restrictions[facility] Work Phone: Hospital Discharge instructions Additional Instructions Follow-up with your primary care doctor Return to ED for develop worsening symptoms or [facility] Work Phone: Hospital Discharge instructions Additional Instructions Patient is medically stable for detox at this time. Please go directly to detox. Please follow close with your primary care doctor. Please return to the emergency department if you develop any worsening or concerning symptoms. Please use the nausea medicine as needed. [facility] Work Phone: Progress note No data available for this section [facility] Author Gautam arteaga [facility] June 09, 2022 7:51am Note Date/Time June 09, 2022 7:5 1am [facility] [address] [place] [address] Psychiatry Progress Note Signed Patient: Lyle Bailey MR#: [id number] : 1990 Acct:[id number] Age/Sex: 32 / F Adm Date: 3 Loc: 1S Room: [address] [place] [address] Type : ADM IN Attending Dr: Nguyễn [...] signed by Gautam Burrows MD> 06/09/22 0751 [facility] Work Phone: Reason for referral (narrative) Referred by: [facility] Purpose Family History No Family History [...] FoundDocuments on File Type Date Recorded 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 Go to scheduled appointment. Take Xarelto as prescribed. * Attachments The following attachments cannot be sent through Care Everywhere. * DVT (Deep Vein Thrombosis) (Palestinian) documented in this encounter* Attachments The following attachments cannot be sent through Care Everywhere. * Panic Attacks (Palestinian) documented in this encounter* Instructions* Crescencio Emanuel MD - 03/11/2020 MEDICATIONS PRESCRIBED. RETURN FOR NEW OR WORSENING SYMPTOMS, THOUGHTS OR WANTING TO HURT SELF/ OTHERS. * Attachments The following attachments cannot be sent through Care Everywhere. * Anxiety Disorder (Palestinian) documented in this encounter* Attachments The following attachments cannot be sent through Care Everywhere. * Anxiety Disorder (Palestinian) documented in this encounter Assessments Diagnosis Pain [...] withdrawal abd pain Vomiting Chief Complaint BH [place]ip. Brief Psychotic Disorder [place] Slip. Brief Psychotic Disorder Reason for Visit Acute psychosis Additional Source Comments INFORMATION SOURCE (unrecogn ized section and content) DATE CREATED AUTHOR 07/04/2018 [facility] DATE CREATED AUTHOR AUTHOR'S ORGANIZ ATION 11/14/2018 [facility] DATE CREATED AUTHOR AUTHOR'S ORGANIZ ATION 03/12/2020 [facility] DATE CREATED AUTHOR AUTHOR'S ORGANIZ ATION 06/04/2020 [facility] DATE CREATED AUTHOR AUTHOR'S ORGANIZ ATION 09/28/2020 [facility] DATE CREATED AUTHOR AUTHOR'S ORGANIZ ATION 10/12/2020 [facility] DATE CREATED AUTHOR AUTHOR'S ORGANIZ ATION 10/19/2020 [facility] DATE CREATED AUTHOR AUTHOR'S ORGANIZ ATION 02/09/2021 [facility] DATE CREATED AUTHOR AUTHOR'S ORGANIZ ATION 05/04/2021 [facility] DATE CREATED AUTHOR AUTHOR'S ORGANIZ ATION 05/04/2021 [facility] DATE CREATED AUTHOR AUTHOR'S ORGANIZ ATION 06/02/2021 [facility] DATE CREATED AUTHOR AUTHOR'S ORGANIZ ATION 07/31/2021 [facility] DATE CREATED AUTHOR AUTHOR'S ORGANIZ ATION 03/13/2022 [facility] DATE CREATED AUTHOR AUTHOR'S ORGANIZ ATION 03/15/2022 [facility] DATE CREATED AUTHOR AUTHOR'S ORGANIZ ATION 01/17/2023 [facility] DATE CREATED AUTHOR AUTHOR'S ORGANIZ ATION 07/02/2023 [facility] DATE CREATED AUTHOR AUTHOR'S ORGANIZ ATION 07/05/2023 [facility] DATE CREATED AUTHOR AUTHOR'S ORGANIZ ATION 07/07/2023 [facility] DATE CREATED AUTHOR AUTHOR'S ORGANIZ ATION 07/15/2023 [facility] DATE CREATED AUTHOR AUTHOR'S ORGANIZ ATION 07/18/2023 [facility] DATE CREATED AUTHOR AUTHOR'S ORGANIZ ATION 08/07/2023 [facility] DATE CREATED AUTHOR AUTHOR'S ORGANIZ ATION 08/08/2023 [place] [facility] DATE CREATED AUTHOR AUTHOR'S ORGANIZ ATION 08/15/2023 [facility] DATE CREATED AUTHOR AUTHOR'S ORGANIZ ATION 09/01/2023 [place] [facility] DATE CREATED AUTHOR AUTHOR'S ORGANIZ ATION 09/02/2023 [facility] DATE CREATED AUTHOR AUTHOR'S ORGANIZ ATION 09/05/2023 [facility] Reason for Visit (unrecogniz ed section and [...] Referre d By Contact Referred To Contact [facility] Emergency Dept [address] [place] [address] [facility] Reason Comments Anxiety Pt states that she's been drinking continuously for the past 3 weeks, states anxiety/panic attacks today; Has a hx of IV drug abuse as well; Reason Comments Withdrawal Alcohol Reason Comments Hypertension at [facility]. blood pressure checked today and was 146/100 Reason Comments Addiction Problem Reason Comments Panic Attack Reason Comments Psychiatric Evaluation Pt is from [facility] and is going through alcohol withdrawal, pt [...] IntraMUSCular, ONCE, 1 dose, On Sat05/03/21 at 0430 0428 (Given - Provid er: Macrina Cerda RN) LORazepam (ATIVAN) injection 1 mg (COMPLETED) 1 mg, IntraVENous, ONCE, 1 dose, On Sat05/02/21 at 2315 2317 (Given - Provider: Macrina Cerda RN) LORazepam (ATIVAN) injection 1 mg (COMPLETED) 1 mg, IntraVENous, ONCE, 1 dose, On Sat05/02/21 at 2341 2344 (Given - Provider: Macrina Cerda RN) PRN Medication Order 05/01/2021 05/02/2021 05/03/2021 iopamidol (ISOVUE-370) 76 % injection 75 mL (COMPLETED) 75 mL, IntraVENous, IMG ONCE PRN, 1 dose, Starting on Sat05/03/21 at 0312, Until Discontinued, Other 0336 (Given - Provid er: Michelle Godoy - Comment: [id number] 10/04) No Frequency Medication Order 05/01/2021 05/02/2021 [...] 0802 (Given - Provid er: Franchesca Calhoun RN)142 (Given - Provider: Franchesca Calhoun RN)2121 (Given [...] On 12/16/22 at 202, For 1 dose 2041 (Given - Provid er: Moni Montoya RN) LORazepam (Ativan) tablet 2 mg (COMPLETED) 2 mg, oral, Once, On 12/15/22 at 1525, For 1 dose 1545 (Given - Provider: Franchesca Calhoun RN) methadone (Dolophine) tablet 50 mg 50 mg, oral, Daily, First dose on 12/16/22 at 0900, RN must sign for and bulk picker medication at Pharmacy window. Please call [...] Ruano RN)0411 (See Alternative - Provider: Eleonora Jaquez, LILY)0615 (See Alternative - Provider: Jacob Ruano RN) LORazepam (Ativan) injection 1 mg(Linked Group 1) 1 mg, intravenous, Administer over 5 Minutes, Every 2 hour PRN, CIWA score 8-9, Starting on Sat12/14/22 at 2137, Maximum rate of 2 mg/min. 220 (Given - Provider: Jacob Ruano RN - Comment: CIWA 8) 0040 (See Alternative - Provider: Jacob Ruano RN)0411 (See Alternative - Provider: Eleonora Jaquez, LILY)0615 (See Alternative - Provider: Jacob Ruano RN) LORazepam (Ativan) injection 2 mg(Linked Group 1) 2 mg, intravenous, Administer over 5 Minutes, Every 2 hour PRN, CIWA score greater than 9, Starting on Sat12/14/22 at 2137, Maximum rate of 2 mg/min. 2208 (See Alternative - Provider: Jacob Ruano RN) 0040 (Given - Provider: Jacob Ruano RN - Comment: CIWA 21)0411 (Given - Provider: Eleonora Jaquez, RN)0615 (Given - Provider: Jacob Ruano RN - Comment: CIWA 13) melatonin tablet 3 mg 3 mg, oral, Nightly PRN, sleep, Starting on 12/15/22 at 2237 2300 (Given - Provider: Bharati Barba, LILY) No Frequency Medication Order 12/14/2022 12/15/2022 12/16/2022 [...] Member Role Status Dates Amanda Barrios APRN COMPONENT DESIGN ENGINEER-C Primary Care Provider Active Team Status: Active Member Role Status Dates Diamante [place] Primary Care Provider Active Star t: July 05, 2023 Gautam Burrows MD Attending Provider Active Start: July 05, 2023 Team Status: Inactive Member Role Status Dates Amanda Barrios APRN COMPONENT DESIGN ENGINEER-C Primary Care Provider Active Start: August 06, 2023 End: August 10, 2023 Piyush Pace MD Admit Provider, Atte nding Provider Active Start: August 06, 2023 End: August 10, 2023 Team Status: Active Member Role Status Dates Amanda Barrios APRN COMPONENT DESIGN ENGINEER-C Primary Care Provider Active Start: August 07, [...] Member Role Status Dates Amanda Barrios APRN COMPONENT DESIGN ENGINEER-C Primary Care Provider Active Start: January 19, 2023 End: January 19, 2023 Pavel Yao DO Emergency Provider Active Start: January 19, 2023 End: January 19, 2023 Team Status: Inactive Member Role Status Dates Amanda Barrios APRN COMPONENT DESIGN ENGINEER-C Primary Care Provider Active Start: January 25, 2023 End: January 25, 2023 Samanta Castro Jr, MD Emergency Provider Active Start: January 25, 2023 End: January 25, 2023 Team Status: Inactive Member Role Status Dates Amanda Barrios APRN COMPONENT DESIGN ENGINEER-C Primary Care Provider Active Start: March 04, 2023 End: March 04, 2023 Azra Farmer DO Emergency Provider Active St art: March 04, 2023 End: March 04, 2023 Team Status: Inactive Member Role Status Dates Amanda Barrios APRN COMPONENT DESIGN ENGINEER-C Primary Care Provider Active Start: March 12, 2023 End: March 12, 2023 Azra Farmer DO Emergency Provider Active St art: March 12, 2023 End: March 12, 2023 Team Status: Inactive Member Role Status Dates Amanda Barrios APRN COMPONENT DESIGN ENGINEER-C Primary Care Provider Active Start: March 17, 2023 End: March 17, 2023 Delvis Benz DO Emergency Provider Active Sta rt: March 17, 2023 End: March 17, 2023 Team Status: Inactive Member Role Status Dates Amanda Martínezjulio , SHARK BIOLOGIST COMPONENT DESIGN ENGINEER-C Primary Care Provider Active Start: April 06, 2023 End: April 06, 2023 Declan Marina MD Emergency Provider Active St art: April 06, 2023 End: April 06, 2023 Team Status: Active Member Role Status Dates Diamante [place] Primary Care Provider Active Star t: 2023 Gautam Burrows MD Attending Provider Active Start: 2023 Team Status: Inactive Member Role Status Dates Amanda Barrios , SHARK BIOLOGIST COMPONENT DESIGN ENGINEER-C Primary Care Provider Active Azra Farmer DO Emergency Provider Active Team Status: Inactive Member Role Status Dates Amanda Martínezjulio , SHARK BIOLOGIST COMPONENT DESIGN ENGINEER-C Primary Care Provider Active Declan Marina MD Emergency Provider Active Team Status: Inactive Member Role Status Dates Amanda Barrios , SHARK BIOLOGIST COMPONENT DESIGN ENGINEER-C Primary Care Provider Active Ari Aguero DO Emergency Provider Active Team Status: Inactive Member Role Status Dates Ari Aguero , DO Emergency Provider Active Amanda Antwonjulio , SHARK BIOLOGIST COMPONENT DESIGN ENGINEER-C Primary Care Provider Active Team Status: Inactive Member Role Status Dates Amanda Barrios , SHARK BIOLOGIST COMPONENT DESIGN ENGINEER-C Primary Care Provider Active Eric Dooley MD Emergency Provider Active Team Status: Inactive Member Role Status Dates Amanda Barrios , SHARK BIOLOGIST COMPONENT DESIGN ENGINEER-C Primary Care Provider Active Braeden Schmitt PA-C Emergency Provider Active Team Status: Inactive Member Role Status Dates Amanda Barrios , SHARK BIOLOGIST COMPONENT DESIGN ENGINEER-C Primary Care Provider Active Ari Aguero DO Emergency Provider Active Joann Bojorquez DO RES Active Team Status: Inactive Member Role Status Dates Amanda Barrios , SHARK BIOLOGIST COMPONENT DESIGN ENGINEER-C Primary Care Provider Active Pavel Yao DO Emergency Provider Active Team Status: Inactive Member Role Status Dates Amanda Barrios , SHARK BIOLOGIST COMPONENT DESIGN ENGINEER-C Primary Care Provider Active Kanchan Sanchez MD Attending Provider Active Team Status: Active Member Role Status Dates Amanda Antwonjulio , SHARK BIOLOGIST COMPONENT DESIGN ENGINEER-C Primary Care Provider Active Ari Aguero DO Emergency Provider Active Nguyễn Burrows MD Admit Provider, Attending Pr ovider Active Team Status: Inactive Member Role Status Dates Amanda Antwonjulio , SHARK BIOLOGIST COMPONENT DESIGN ENGINEER-C Primary Care Provider Active Ari M More , DO Emergency Provider Active Nguyễn Burrows MD Admit Provider, Attending Manan roman Active Columnist/Commentator Relationship Specialty Start Date End Date Nini Mccollum, SHARK BIOLOGIST-SYSTEMS INTEGRATOR [address] [place] [address] PCP - General 01/14/19 Team Status: Active Member Role Status Dates Diamante [place] Primary Care Provider Active Team Status: Inactive Member Role Status Dates Diamante [place] Primary Care Provider Active Braeden Schmitt PA-C Emergency Provider Active Team Status: Inactive Member Role Status Dates Amanda Barrios APRN COMPONENT DESIGN ENGINEER-C Primary Care Provider Active Samanta Castro Jr, MD Emergency Provider Active Team Status: Inactive Member Role Status Dates Ari Aguero DO Emergency Provider Active Sta rt: December 11, 2022 End: December 11, 2022 Amanda Barrios APRN COMPONENT DESIGN ENGINEER-C Primary Care Provider Active Start: December 11, 2022 End: December 11, 2022 Team Status: Inactive Member Role Status Dates Amanda Barrios APRN COMPONENT DESIGN ENGINEER-C Primary Care Provider Active Start: April 08, 2023 End: April 08, 2023 Eric Dooley MD Emergency Provider Active Star t: April 08, 2023 End: April 08, 2023 Team Status: Inactive Member Role Status Dates Amanda Barrios APRN COMPONENT DESIGN ENGINEER-C Primary Care Provider Active Start: April 25, [...] BE BASED ON THE PRIMARY CLINICAL RECORDS. [facility] [email or web address] provides no warranty or guarantee of the accuracy or completeness of information in this document.
[2023-09-10 21:11] VITALS: BP 119/74; PULSE 77; PULSE 82; TEMP 36.9; O2SAT 96; BMI 30.1
[2023-09-10 21:36] VITALS: BP 119/74; PULSE 82; TEMP 36.9; O2SAT 96
[2023-09-10] MEDS: TEMAZEPAM 15 MG CAPSULE PO (21:46)
[2023-09-10] MEDS: FOLIC ACID 1 MG TABLET PO (21:46)
[2023-09-10] MEDS: LORAZEPAM 1 MG TABLET PO (21:46)
[2023-09-10] MEDS: MULTIVITAMIN TABLET 1 TAB PO (21:46)
[2023-09-10] MEDS: NICOTINE 21 MG PATCH.TD24 TD (21:47)
[2023-09-10 22:32] LABS: Bilirubin Urine NEGATIVE (NEGATIVE); Blood Urine NEGATIVE (NEGATIVE); Clarity Urine CLEAR (CLEAR); Color Urine LT. YELLOW (YELLOW); Glucose Urine UA NEGATIVE (NEGATIVE); Ketones Urine NEGATIVE (NEGATIVE); Leukocyte Esterase Urine NEGATIVE (NEGATIVE); Nitrite Urine NEGATIVE (NEGATIVE); Protein Urine NEGATIVE (NEG/TRACE); pH Urine 6.5 (5.0-9.0)
[2023-09-10 22:40] LABS: Urine Microscopic Indicated NO
[2023-09-10 22:42] LABS: Ketones Urine NEGATIVE (NEGATIVE)
[2023-09-10 22:48] LABS: Amphetamine Screen Urine POSITIVE (NEGATIVE); Barbiturates Screen Urine NEGATIVE (NEGATIVE); Benzodiazepines Screen Urine POSITIVE (NEGATIVE); Buprenorphine Screen Urine NEGATIVE (NEGATIVE); Cannabinoid Screen Urine NEGATIVE (NEGATIVE); Cocaine Screen Urine NEGATIVE (NEGATIVE); Methadone Screen Urine POSITIVE (NEGATIVE); Methamphetamines Screen Urine NEGATIVE (NEGATIVE); Opiate Screen Urine NEGATIVE (NEGATIVE); Oxycodone Screen Urine NEGATIVE (NEGATIVE); Phencyclidine Screen Urine NEGATIVE (NEGATIVE); Tricyclic Antidepressant Urine NEGATIVE (NEGATIVE)
[2023-09-10 23:47] VITALS: O2SAT 96
[2023-09-11] VITALS (24 sets, daily range): BP systolic 107–119; BP diastolic 69–85; PULSE 59–107; TEMP 36.6–36.9; O2SAT 82–97
[2023-09-11] MEDS: 0.9 % SODIUM CHLORIDE 1,000 ML 125 ML IV (01:56)
[2023-09-11] MEDS: PROMETHAZINE HCL 25 MG in 0.9 % SODIUM CHLORIDE 50 ML 204 MG IV (04:26)
[2023-09-11] MEDS: DIAZEPAM 10 MG/2 ML SYRINGE 5 MG IV (04:27)
[2023-09-11] MEDS: ACETAMINOPHEN 325 MG TABLET 650 MG PO (04:27)
[2023-09-11] MEDS: LORAZEPAM 1 MG TABLET PO ×2 (06:02→09:29)
[2023-09-11 06:19] LABS: Basophils Absolute Auto 0.1 10^3/uL (0.0-0.1); Basophils Percent Auto 0.9 % (0.2-2.0); Eosinophils Percent Auto 0.7 % (0.9-7.0); Hemoglobin 13.8 g/dL (12.0-16.0); Immature Granulocytes Abs Auto 0.01 10^3/uL (0.00-0.03); Immature Granulocytes Pct Auto 0.2 % (0.0-0.5); Lymphocytes Absolute Auto 2.5 10^3/uL (1.2-3.8); Lymphocytes Percent Auto 44.2 % (20.5-60.0); Mean Corpuscular HGB Conc 32.9 g/dL (29.9-35.2); Mean Corpuscular Hemoglobin 34.1 pg (26.7-34.0); Mean Corpuscular Volume 103.7 fL (81.0-99.0); Mean Platelet Volume 10.1 fL (9.5-13.5); Monocytes Absolute Auto 0.5 10^3/uL (0.3-0.8); Monocytes Percent Auto 8.4 % (1.7-12.0); Neutrophils Absolute Auto 2.6 10^3/uL (1.4-6.5); Neutrophils Percent Auto 45.6 % (43.0-75.0); Platelet Count 261 10^3/uL (150-450); Red Blood Count 4.05 10^6/uL (4.20-5.40); Red Cell Distribution Width 12.2 % (11.0-15.0); White Blood Count 5.6 10^3/uL (4.0-11.0)
[2023-09-11 06:24] LABS: INR 1.17; Partial Thromboplastin Time 29.8 sec (22.3-36.2); Prothrombin Time 12.2 sec (9.0-11.6)
[2023-09-11 06:30] LABS: Alanine Aminotransferase 116 U/L (14-59); Albumin Globulin Ratio 0.7; Albumin Level 2.8 g/dL (3.4-5.0); Alkaline Phosphatase 128 U/L (46-116); Anion Gap 10.1; Aspartate Amino Transferase 197 U/L (15-37); BUN Creatinine Ratio 8.6; Bilirubin Total 0.4 mg/dL (0.2-1.0); Calcium 8.5 mg/dL (8.5-10.1); Carbon Dioxide 27.5 mmol/L (21.0-32.0); Chloride 105 mmol/L (98-107); Estimated GFR (African America >60 (>=60); Estimated GFR (Non-African Ame >60 (>=60); Globulin 4.3 g/dL; Glucose 77 mg/dL (74-106); Magnesium 1.5 mg/dL (1.8-2.4); Phosphorus 4.4 mg/dL (2.6-4.7); Potassium 3.6 mmol/L (3.5-5.1); Sodium 139 mmol/L (136-145); Total Protein 7.1 g/dL (6.4-8.2)
[2023-09-11] MEDS: FOLIC ACID 1 MG TABLET PO (09:28)
[2023-09-11] MEDS: GABAPENTIN 400 MG CAPSULE 800 MG PO (09:28)
[2023-09-11] MEDS: BUSPIRONE HCL 10 MG TABLET 5 MG PO (09:28)
[2023-09-11] MEDS: LACTULOSE 10 GM/15 ML UD CUP 20 GM PO (09:29)
[2023-09-11] MEDS: PROPRANOLOL HCL 20 MG TABLET 10 MG PO (09:29)
[2023-09-11] MEDS: THIAMINE MONONITRATE (VIT B1) 100 MG TABLET PO (09:29)
[2023-09-11] MEDS: MULTIVITAMIN TABLET 1 TAB PO (09:29)
[2023-09-11] MEDS: CLONIDINE HCL 0.1 MG TABLET PO (09:29)
--- NOTE | 2023-09-11 10:19 | PC.NURSE ---
dr monteiro in to see pt. pt stated she wants to go home. dr monteiro discussed risks of withdrawal at home. pt verbalized understanding. pt called mother for ride. ama paper explained to pt, verbalized understanding and signed form. iv and tele dc'd. awaiting ride.
--- NOTE | 2023-09-11 10:34 | SWNOTE1 ---
Pt signed herself out against medical advice, SW was not able to assess.
--- NOTE | 2023-09-11 10:51 | CM.NOTE ---
Rounds made with Dr. Barajas. Dr. Barajas discussed lab results, plan of care and importance of staying at hospital for proper detox especially since pt with hx of seizures. Lebron verbalized understanding. No discharge planned today.
--- NOTE | 2023-09-11 11:18 | PM.HP ---
HPI H&P: HPI History of Present Illness Chief complaint: WITHDRAWALS Narrative: 83-year-old female was brought in last evening by her mother for alcohol intoxication. Patient was intoxicated and confused upon arrival and was not able to provide any information. According to the patient's mother she drinks about half a gallon of vodka daily along with some beer. She also raised some concerns about meth amphetamine use. Patient was recently discharged from our facility for alcohol withdrawal but went back to drinking right away. Patient has prior history of alcohol withdrawal seizures. She was admitted overnight to stepdown unit for alcohol intoxication and monitor for alcohol withdrawal along with treatment for alcohol withdrawal. Overnight she received IV Valium and Ativan as needed twice. Upon my assessment earlier today, her CIWA was about 4-5. She has been insisting to leave since this morning. I had a detailed discussion with her about alcohol abuse methamphetamine use and opioid abuse and how she can have devastating effects from continued alcohol abuse and drug abuse. She initially agreed to stay in the hospital for treatment but then later on called her mom to leave and signed out AGAINST MEDICAL ADVICE. Patient was also noted to have evidence of hepatic encephalopathy from hyperammonemia along with acute alcoholic hepatitis. Patient also has prior history of opioid abuse and was previously on methadone and claims that methadone in her urine is from her previous prescription that she stopped using about a month ago. Opioid HPI Opioid Management Most Recent Pain and Opioid Data: Last Pain Scale 3 09/11/23 06:02 Last Pain Assessment 09/11/23 09:00 Last MAR Pain Assessment 09/11/23 06:02 Last ORT Total Score 11 09/10/23 21:11 Last ORT Risk Category High Risk 09/10/23 21:11 Ur Phencyclidine Scrn Negative (NEGATIVE) 09/10/23 22:00 Review of Systems ROS Status of ROS 10 or more systems reviewed and unremarkable except as noted in history and below [facility] Medical History (Updated 09/11/23 @ 11:28 by Shaikh Jenn MD) ADHD ?F90.9 - Attention-deficit hyperactivity disorder, unspecified type (ICD-10) DILIA (generalized anxiety disorder) ?F41.1 - Generalized anxiety disorder (ICD-10) HTN (hypertension) ?I10 - Essential (primary) hypertension (ICD-10) Appendicitis ?K37 - Unspecified appendicitis (ICD-10) Methamphetamine abuse ?F15.10 - Other stimulant abuse, uncomplicated (ICD-10) Surgical History (Updated 09/10/23 @ 21:54 by Ana Jorge) Hx of appendectomy ?Z90.49 - Acquired absence of other specified parts of digestive tract (ICD-10) Family History (Updated 09/10/23 @ 21:55 by Ana Jorge) Mother Family history of COPD (chronic obstructive pulmonary disease) Family history of stroke Father Family history of hypertension Social History (Updated 09/10/23 @ 21:57 by Ana Jorge) Within the past year, how often did you have a drink containing alcohol: 4 or more times a week Within the past year, how many standard drinks containing alcohol did you have on a typical day: 10 or more Within the past year, how often did you have six or more drinks on one occasion: daily or almost daily Total score: 12 Score interpretation: A score of 3 or more indicates drinking is likely to affect patient's safety. Smoking status: Current every day smoker Non-prescribed substance use: declined to answer Highest level of school completed/degree received: high school graduate Are you now , , , , never or living with a partner: don't know In a typical week, how many times do you talk on the telephone with family, friends, or neighbors: 3 or more times per week How often do you get together with friends or relatives: once per week Do you belong to any clubs or organizations such as episcopalian groups unions, fraternal or athletic groups, or school groups: no Do you think of yourself as: straight/heterosexual Gender Identity: female Meds Home Medications and Allergies Home Medications ?Medication ?Instructions ?Recorded ?Confirmed ?Type clonidine HCl 0.1 mg tablet 0.1 mg PO Q12H 03/05/23 09/10/23 History gabapentin 800 mg tablet 800 mg PO TID 03/05/23 09/10/23 History buspirone 5 mg tablet 5 mg PO BID 09/01/23 09/10/23 History multivitamin with folic acid 400 1 tab PO QD 30 days #30 tabs 09/02/23 09/10/23 Rx mcg tablet (Tab-A-Sameera) thiamine mononitrate (vit B1) 100 100 mg PO QD 30 days #30 tabs 09/02/23 09/10/23 Rx mg tablet dextroamphetamine-amphetamine ER 20 mg PO DAILY 09/11/23 09/11/23 History 20 mg 24hr capsule,extend release lorazepam 1 mg tablet 1 mg PO Q8H PRN anxiety 09/11/23 09/11/23 History propranolol 10 mg tablet 10 mg PO .qd 09/11/23 09/11/23 History Allergies Allergy/AdvReac Type Severity Reaction Status Date / Time codeine Allergy Severe Hives Verified 09/10/23 15:42 hydroxyzine [From Vistaril] AdvReac Severe Hives Verified 09/10/23 15:42 Exam Constitutional Vital Signs, click to edit/add: Last Vital Signs Temp 97.8 F 09/11/23 08:00 Pulse 59 L 09/11/23 10:10 Resp 12 09/11/23 10:10 BP 118/85 09/11/23 08:11 Pulse Ox 97 09/11/23 08:11 O2 Del Method Room Air 09/11/23 08:00 Documenting provider has reviewed patient's vital signs: yes Common normals: no apparent distress and oriented x3 General appearance: cooperative HENMT Common normals: normocephalic and head/scalp atraumatic Head and scalp: normocephalic and atraumatic Respiratory Common normals: normal respiratory effort and clear to auscultation bilaterally Effort & inspection: able to speak in complete sentences Auscultation: clear to auscultation bilaterally Cardio Common normals: regular rate, S1 normal heart sound and S2 normal heart sound Rate: regular rate Heart sounds: S1 normal and S2 normal GI Common normals: Normal to inspection, nondistended, normoactive bowel sounds present, soft to palpation, non-tender and no hepatosplenomegaly Palpation: soft and no hepatosplenomegaly Extremity Common normals: no clubbing, cyanosis or edema Neuro Common normals: oriented x3, moves all extremities and no focal motor deficits Other: CIWA 4-5 Psych Common normals: mental status grossly normal, thought process normal, denies hallucinations, denies homicidal ideation and denies suicidal ideation Attention/concentration: attention grossly intact Memory/cognition: memory grossly intact Insight: fair Judgement: fair Results Labs Labs: Short CBC 09/10/23 09/11/23 Range/Units 16:16 06:03 WBC 6.1 5.6 (4.0-11.0) 10^3/uL Hgb 14.7 13.8 (12.0-16.0) g/dL Hct 44.6 42.0 (36.0-48.0) % Plt Count 255 261 (150-450) 10^3/uL BMP 09/10/23 09/11/23 16:16 06:03 Sodium 140 139 Potassium 3.8 3.6 Chloride 106 105 Carbon Dioxide 25.7 27.5 BUN 4.0 L 6.0 L Creatinine 0.52 L 0.70 Glucose 111 H 77 Calcium 8.5 8.5 Liver Function 09/10/23 09/11/23 Range/Units 16:16 06:03 Total Bilirubin 0.3 0.4 (0.2-1.0) mg/dL AST 204 H 197 H (15-37) U/L ALT 127 H 116 H (14-59) U/L Alkaline Phosphatase 136 H 128 H (46-116) U/L Albumin 3.0 L 2.8 L (3.4-5.0) g/dL Urine 09/10/23 Range/Units 22:00 Urine Color Lt. yellow (YELLOW) Urine Clarity Clear (CLEAR) Urine pH 6.5 (5.0-9.0) Ur Specific [place] 1.010 (1.005-1.025) Urine Protein Negative (NEG/TRACE) mg/dL Urine Glucose (UA) Negative (NEGATIVE) mg/dL Assessment and Plan Assessment and Plan (1) Alcoholic hepatitis: Assessment and Plan: Due to alcohol abuse. Slight improvement in AST ALT. Continue with IV fluids. Monitor closely. Qualifiers: Ascites presence: without ascites Qualified Code(s): K70.10 - Alcoholic hepatitis without ascites (2) Hepatic encephalopathy: Assessment and Plan: Likely because of alcoholic hepatitis and probably from some degree of alcoholic liver cirrhosis. Elevated ammonia levels. Started on lactulose twice daily. No signs and symptoms of impaired cognition/concentration patient is appropriate, awake and alert. (3) Polysubstance abuse: Assessment and Plan: History of methamphetamine use, opioid abuse and alcohol abuse. Counseled and educated on substance abuse. (4) Alcohol abuse: Assessment and Plan: Counseled and educated on alcohol abuse. (5) Alcohol withdrawal: Assessment and Plan: Mild alcohol withdrawal likely because she presented with alcohol intoxication and she still has some alcohol in her system. With her prior history of alcohol withdrawal seizure, she is expected to have severe alcohol withdrawal and will need close monitoring for 3 to 5 days to ensure that she she is safe at home and appropriately treated for alcohol withdrawal given her prior history Qualifiers: Complication of substance-induced condition: uncomplicated Qualified Code(s): F10.930 - Alcohol use, unspecified with withdrawal, uncomplicated (6) ADHD: Assessment and Plan: Currently on Adderall. Defer to patient's outpatient PCP and or psychiatrist Qualifiers: Attention deficit-hyperactivity disorder type: combined inattentive-hyperactive Qualified Code(s): F90.2 - Attention-deficit hyperactivity disorder, combined type (7) DILIA (generalized anxiety disorder): Assessment and Plan: On buspirone continue with same (8) HTN (hypertension): Assessment and Plan: Blood pressure is stable Qualifiers: Hypertension type: primary hypertension Qualified Code(s): I10 - Essential (primary) hypertension (9) Alcohol intoxication: Assessment and Plan: Initially presented with alcohol intoxication with delirium. She is now awake and alert. She is at very high risk of alcohol withdrawal and needs to be closely monitored for it Qualifiers: Complication of substance-induced condition: with delirium Qualified Code(s): F10.921 - Alcohol use, unspecified with intoxication delirium Plan Patient will require inpatient treatment for her alcohol withdrawal, alcoholic hepatitis. Given her prior history of alcohol withdrawal seizure, she needs to be monitored at least for 2 to 3 days to ensure that she is out of the usual timeframe for alcohol withdrawal seizures. She will require close monitoring with hourly CIWA assessment and treatment with combination of clonidine, benzodiazepine to ensure her alcohol withdrawal is appropriately treated. At this moment, patient is medically competent to leave AGAINST MEDICAL ADVICE if she chooses to do so.
--- NOTE | 2023-09-12 13:44 | CM.DCFOLLOWU ---
Phone is disconnected 09/12/23
[2023-09-13 00:07] LABS: Osmolality, Urine 334 mOsmol/kg (.)
== END 2023-09-11 10:30 | disposition left against medical advice (07) | DRG 280 ==
LOC: ER 19:44 → ICU 20:56
PROVIDERS: Physician Assistant; Registered Nurse; Admitting Provider Internal Medicine; Emergency Provider Emergency Medicine Emergency Medical Services; PCP Family Medicine; Visit Provider Internal Medicine
DX: K70.10 Alcoholic hepatitis without ascites (principal); F10.139 Alcohol abuse with withdrawal, unspecified; K76.82 Hepatic encephalopathy; F15.10 Other stimulant abuse, uncomplicated; F11.10 Opioid abuse, uncomplicated; F41.1 Generalized anxiety disorder; F90.9 Attention-deficit hyperactivity disorder, unspecified type; I10 Essential (primary) hypertension; F10.121 Alcohol abuse with intoxication delirium; Y90.8 Blood alcohol level of 240 mg/100 ml or more; Z53.29 Procedure and treatment not carried out because of patient's decision for other reasons; F17.210 Nicotine dependence, cigarettes, uncomplicated; Z90.49 Acquired absence of other specified parts of digestive tract; Z79.899 Other long term (current) drug therapy
CPT/HCPCS: 36415; 71045; 80053; 80307; 80320; 81003; 82140; 83690; 83735; 83935; 84100; 85025; 85610; 85730; 93005; 94761; 96365; 96366; 96367; 96375; 96376; 99285; G0378; J2250; J2405; J3360; J3411

== ENCOUNTER 2023-09-18 17:49 | Emergency (ER) | payer OTHER, SELFPAY ==
[2023-09-18 17:56] VITALS: BP 137/98; PULSE 85; TEMP 36.5; O2SAT 96; BMI 31.1
--- NOTE | 2023-09-18 18:26 | ED_ITS ---
HPI HPI - General Adult General Chief complaint: Alcohol Stated complaint: Alcohol Time Seen by Provider: 09/18/23 17:55 Source: family Mode of arrival: walk-in Limitations: other Limitations comment: ETOH intoxication History of Present Illness HPI narrative: Patient sending to the emergency department for help with detox. Patient states that she drinks at least a gallon of vodka a day. She states that she drink at least a liter of vodka so far today, her last drink was on her way into the emergency department within the last 15 minutes, she was drinking it in the car. She states that she told her mom that she is scared to detox, is scared to quit drinking, but she wants to go to detox and stop drinking. She states the reason she drinks heavily is because every time she tries to go into detox by herself, she ends up getting very ill, shaky, has seizures, ended up in the ICU once from trying to detox and so low. Patient states that she would like to go to detox center but is worried about trying to do it medically. No other complaints at this time Related Data Home Medications ?Medication ?Instructions ?Recorded ?Confirmed clonidine HCl 0.1 mg tablet 0.1 mg PO Q12H 03/05/23 09/10/23 gabapentin 800 mg tablet 800 mg PO TID 03/05/23 09/10/23 buspirone 5 mg tablet 5 mg PO BID 09/01/23 09/10/23 dextroamphetamine-amphetamine ER 20 mg PO DAILY 09/11/23 09/11/23 20 mg 24hr capsule,extend release lorazepam 1 mg tablet 1 mg PO Q8H PRN anxiety 09/11/23 09/11/23 propranolol 10 mg tablet 10 mg PO .qd 09/11/23 09/11/23 Previous Rx's ?Medication ?Instructions ?Recorded multivitamin with folic acid 400 1 tab PO QD 30 days #30 tabs 09/02/23 mcg tablet (Tab-A-Sameera) thiamine mononitrate (vit B1) 100 100 mg PO QD 30 days #30 tabs 09/02/23 mg tablet chlordiazepoxide HCl 25 mg capsule See Rx Instructions .Route 09/18/23 .COMPLEX #15 caps Allergies Allergy/AdvReac Type Severity Reaction Status Date / Time codeine Allergy Severe Hives Verified 09/10/23 15:42 hydroxyzine [From Vistaril] AdvReac Severe Hives Verified 09/10/23 15:42 Opioid HPI Opioid Management Most Recent Opioid Data: Last Pain Scale 3 09/11/23 06:02 Last ORT Total Score 11 09/10/23 21:11 Last ORT Risk Category High Risk 09/10/23 21:11 Ur Phencyclidine Scrn Negative (NEGATIVE) 09/10/23 22:00 Review of Systems ROS Narrative Negative less otherwise stated in the HPI PFSH PFSH Medical History (Updated 09/11/23 @ 11:28 by Shaikh Jenn MD) ADHD ?F90.9 - Attention-deficit hyperactivity disorder, unspecified type (ICD-10) DILIA (generalized anxiety disorder) ?F41.1 - Generalized anxiety disorder (ICD-10) HTN (hypertension) ?I10 - Essential (primary) hypertension (ICD-10) Appendicitis ?K37 - Unspecified appendicitis (ICD-10) Methamphetamine abuse ?F15.10 - Other stimulant abuse, uncomplicated (ICD-10) Surgical History (Updated 09/10/23 @ 21:54 by Ana Jorge) Hx of appendectomy ?Z90.49 - Acquired absence of other specified parts of digestive tract (ICD- 10) Family History (Updated 09/10/23 @ 21:55 by Ana Jorge) Mother Family history of COPD (chronic obstructive pulmonary disease) Family history of stroke Father Family history of hypertension Social History (Updated 09/10/23 @ 21:57 by Ana Jorge) Within the past year, how often did you have a drink containing alcohol: 4 or more times a week Within the past year, how many standard drinks containing alcohol did you have on a typical day: 10 or more Within the past year, how often did you have six or more drinks on one occasion: daily or almost daily Total score: 12 Score interpretation: A score of 3 or more indicates drinking is likely to affect patient's safety. Smoking status: Current every day smoker Non-prescribed substance use: declined to answer Highest level of school completed/degree received: high school graduate Are you now , , , , never or living with a partner: don't know In a typical week, how many times do you talk on the telephone with family, friends, or neighbors: 3 or more times per week How often do you get together with friends or relatives: once per week Do you belong to any clubs or organizations such as restoration groups unions, fraternal or athletic groups, or school groups: no Do you think of yourself as: straight/heterosexual Gender Identity: female Exam Narrative Exam Narrative: General: NAD, AAOx 4, no distress, patient ambulated into the emergency department under her own volition and strength without difficulty Eyes: PERRL, EOMI, lids/conjunctiva normal, no icterus HEENT: NCAT Respiratory: respiratory effort normal, speaks in full sentences, no tripod position, no accessory muscle use. Lungs clear to auscultation without rhonchi, wheezes, rales Cardiac: Regular rate and rhythm, no edema, regular s1/s2, no m/g/r Abdomen: Soft, ND/NT. No evidence of fluid wave. No pulsatile masses on exam, rebound tenderness, Hillman sign or pain over Mcburney's point. Neuro: Speech is clear and appropriate. Normal level of consciousness. Gait and coordination are normal. 5/5 strength in all extremities. No asterixis. Normal gait. Alert and oriented x 4 Psych: Normal mood and affect. Judgement/competence is appropriate Constitutional Vital Signs, click to edit/add: Last Vital Signs Temp 97.7 F 09/18/23 17:56 Pulse 85 09/18/23 17:56 Resp 18 09/18/23 17:56 BP 137/98 H 09/18/23 17:56 Pulse Ox 96 09/18/23 17:56 O2 Del Method Room Air 09/18/23 17:56 Course Vital Signs Vital signs: Vital Signs Temperature 97.7 F 09/18/23 17:56 Pulse Rate 85 09/18/23 17:56 Respiratory Rate 18 09/18/23 17:56 Blood Pressure 137/98 H 09/18/23 17:56 Pulse Oximetry 96 09/18/23 17:56 Oxygen Delivery Method Room Air 09/18/23 17:56 Temperature 97.7 F 09/18/23 17:56 Pulse Rate 85 09/18/23 17:56 Respiratory Rate 18 09/18/23 17:56 Blood Pressure 137/98 H 09/18/23 17:56 Pulse Oximetry 96 09/18/23 17:56 Oxygen Delivery Method Room Air 09/18/23 17:56 Medical Decision Making MDM Narrative Medical decision making narrative: MDM Patient with history as above presented with alcohol abuse. History obtained from patient, mom. Patient was nontoxic, stable. Ambulatory. Exam as above. No signs or symptoms of withdrawal. No tremors, is not tachycardic, steady gait. Reviewed external records. Differential diagnosis considered. Overall presentation is consistent with alcohol use, not currently withdrawing Advanced guidance has been given. Vss, pex is benign at this time. Pt to fu with pcp 1-2 days for reeval, rter should sx worsen, persist or become worrysome in any way. All incidental laboratory studies, EKG, radiologic findings have been noted and discussed with patient. Patient was reevaluated with a benign exam at this time. Pt expressed understanding and agreement with plan of care at this time. Will fu as planned. Pt stable for discharge. Discharge Plan Discharge Stand Alone Forms: Portal Instructions Chief Complaint: Alcohol Clinical Impression: Alcohol abuse Patient Disposition: Home, Self-Care Time of Disposition Decision: 18:30 Condition: Good Prescriptions / Home Meds: New chlordiazepoxide HCl 25 mg capsule See Rx Instructions .ROUTE .COMPLEX Qty: 15 0RF Rx Instructions: Day 1: 50mg q6h Day 2: 25mg q6h Day 3: 25mg q12h Day 4: 25mg at night No Action clonidine HCl 0.1 mg tablet 0.1 mg PO Q12H gabapentin 800 mg tablet 800 mg PO TID buspirone 5 mg tablet 5 mg PO BID thiamine mononitrate (vit B1) 100 mg Tablet 100 mg PO QD 30 Days Qty: 30 0RF multivitamin with folic acid [Tab-A-Sameera] 400 mcg Tablet 1 tab PO QD 30 Days Qty: 30 0RF lorazepam 1 mg tablet 1 mg PO Q8H PRN (Reason: anxiety) dextroamphetamine-amphetamine 20 mg capsule,extended release 24hr 20 mg PO DAILY propranolol 10 mg tablet 10 mg PO .qd Print Language: [place] Referrals: IRAM BAKER [Primary Care Provider] - 1 week
[2023-09-18] MEDS: CLORDIAZEPOXIDE HCl 25 MG CAPSULE 50 MG PO (18:44)
== END 2023-09-18 18:59 | disposition home or self-care (01) ==
PROVIDERS: Emergency Provider Emergency Medicine; PCP Family Medicine
DX: F10.10 Alcohol abuse, uncomplicated (principal); F17.200 Nicotine dependence, unspecified, uncomplicated
CPT/HCPCS: 99283

== ENCOUNTER 2024-05-02 09:43 | Emergency (ER) | payer OTHER, SELFPAY ==
[2024-05-02 09:47] VITALS: BP 188/109; PULSE 81; TEMP 37.1; O2SAT 99; BMI 31.1
--- OUTSIDE RECORDS SUMMARY | 2024-05-02 09:56 | XMS_ITS | CCD ---
Author Organization [facility] Care Team Providers Care Etl Manager Name Role Phone BENITAARTUROCYN ALEXANDERHAR Primary Care Unavailable Benitatrista Elvis Primary Care Provider Wolf, Nini Unavailable Unavailable Tavallwaltere Chintan Unavailable Unavailable Wolf, Nini D Unavailable Unavailable GhElvis weston V Unavailable Unavailable Wolf, Nini Unavailable Unavailable Wolf, Nini D Unavailable Unavailable Wolf, Nini Primary Care Provider WOLF, NINI Primary Care Unavailable CRESCENCIO FLORES Attending Unavailable Wolf, Nini D Unavailable Unavailable Unavailable Elvis Alvarado V Unavailable Wolf, Nini Unavailable Chilo Glover Unavailable Unavailable WOLF, NINI Primary Care Unavailable HERMINIA MCCARTHY Attending Unavailable HERMINIA MCCARTHY Attending Unavailable WOLF, NINI Primary Care Unavailable Jeffery Bynum MD Attending Unavailable Jeffery Bynum MD Admitting Unavailable Unavailable Primary Care Provider UnavailZAIRE Hay Attending Unavailable MARIA E BLANCAS Referring Unavailable Amanda BERNARD Primary Care Physician [phone] Michelle Ferrera Unavailable Unavailable REQUEST, NONE LISTED Primary Care Unavaila STEPHENIE Pete Admitting Unavailable STEPHENIE FERNANDEZ Attending Unavailable STEPHENIE FERNANDEZ Consulting Unavailable REQUEST, NONE LISTED Primary Care Unavaila DR ELIDA Chaidez Admitting Unavailable MARCO, DR ELIDA Ovalle Attending Unavailable DR ELIDA LARA Consulting Unavailable LOGAN Bernard Primary Care Provider [phone] DO Azra Moya Emergency Provider MD Declan Marina Emergency Provider DO Ari Aguero Emergency Provider Unavailable Primary Care Provider UnavailPHU Ornelas Attending Unavailable DECLAN GOEL Attending Unavailable JOEL ALVES Attending Unavailable MD Eric Lara Emergency Provider TAHIR Schmitt Emergency Provider DO Pavel Elizondo Emergency Provider LOGAN Bernard Primary Care Provider DO Azra Moya Emergency Provider [phone] MD Declan Marina Emergency Provider [phone] DO Ari Aguero Emergency Provider [phone] MD Eric Lara Emergency Provider TAHIR Schmitt Emergency Provider DO Pavel Elizondo Emergency Provider [phone] MD Kanchan Sanchez Attending Provider [phone] Kanchan Sanchez Unavailable LOGAN Bernard Primary Care Provider DO Ari Aguero Emergency Provider [phone] MD Nguyễn Burrows Admit Provider [phone] MD Nguyễn Burrows Attending Provider Freda Clarke Unavailable Unavailable LOGAN Bernard Primary Care Provider [phone] DO Ari Aguero Emergency Provider MD Declan Marina Emergency Provider LOGAN Bernard Primary Care Provider MD Laura Impepe Attending Provider [phone] Diamante Cleveland Primary Care Physician Birgit HUGHES Unavailable LOGAN Bernard Primary Care Provider DO Ari Aguero Emergency Provider Nini Miles Primary Care Provider LOGAN Bernard Primary Care Provider MD Kanchan Sanchez Attending Provider [phone] DO Ari Aguero Emergency Provider Diamante Cleveland Primary Care Provider TAHIR Schmitt Emergency Provider NINI GUZMAN Primary Care Unavailable ROSA ELENA MONDRAGON Attending Unavailjeanine lange LOGAN Bernard Primary Care Provider DO Pavel Elizondo Emergency Provider [phone] MD Bridger Castro Jr Emergency Provider DO Azra Moya Emergency Provider [phone] Diamante Cleveland Primary Care Provider MD Gautam Burrows Attending Provider [phone] JOHN BernardN Amanda Primary Care Provider DO Delvis Benz Emergency Provider MD Declan Marina Emergency Provider [phone] JoanaJOHNN Amanda Primary Care Provider DO Azra Moya Emergency Provider DO Delvis Benz Emergency Provider MD Declan Marina Emergency Provider MD Eric Lara Emergency Provider DO Diane Paez Emergency Provider ROBUCK, Amanda E Attending Unavailable ROBUCK, Amanda E Attending Unavailable ROBUCK, Amanda E Attending Unavailable ROBUCK, Amanda E Attending Unavailable [place], [place] Consulting Unavailable Azra HOGAN Admitting Unavailable Endy Raphael Attending Unavailable [place], [place] Consulting Unavailable [place], [place] Consulting Unavailable [place], [place] Consulting Unavailable [place], [place] Consulting Unavailable [place], [place] Consulting Unavailable [place], [place] Consulting Unavailable [place], [place] Consulting Unavailable [place], [place] Consulting Unavailable [place], [place] Consulting Unavailable Azra HOGAN Admitting Unavailable Kam Rizzo Attending Unavailable [place], [place] Consulting Unavailable [place], [place] Consulting Unavailable [place], [place] Consulting Unavailable [place], [place] Consulting Unavailable [place], [place] Consulting Unavailable [place], [place] Consulting Unavailable [place], [place] Consulting Unavailable [place], [place] Consulting Unavailable Darren Guzman Attending Unavailable Kerry Linton Attending Unavailable Stanislav FRAIRE Attending Unavailable Birgit HUGHES Attending Unavailable Birgit HUGHES Admitting Unavailable PEREZ, CARRIE Attending Unavailable Gucarmen Lorie Attending Unavailable Mike Spear Attending Unavailable Mike Spear Attending Unavailable JADA COLBY Attending Unavailable JADA COLBY Admitting Unavailable PEREZ, CARRIE Attending Unavailable CARRIE PEREZ Admitting Unavailable Mike Spear Attending Unavailable Mike Spear Admitting Unavailable Bailee, Lorie Attending Unavailable Bailee, Lorie Admitting Unavailable JEF HEADLEY Attending Unavailable JEF HEADLEY Admitting Unavailable Isai Hall Attending Unavailable Darren Guzman Attending Unavailable Gladys Saini Attending Unavailable Isai Hall Attending Unavailable Isai Hall Attending Unavailable Kerry Linton Attending Unavailable Eric Forbes Attending Unavailable Eric Forbes Attending Unavailable Amanda BERNARD Attending Unavailable Amanda BERNARD Attending Unavailable Amanda BERNARD Attending Unavailable Amanda BERNARD Attending Unavailable Amanda BERNARD Attending Unavailable Amanda BERNARD Attending Unavailable Kaushik Sparks Attending Unavailable Isai Hall Attending Unavailable Isai Hall Attending Unavailable Kaushik Sparks Attending Unavailable Mike Spear Admitting Unavailable Mike Spear Attending Unavailable Isai Hall Attending Unavailable Mike Spear Attending Unavailable Amanda BERNARD Attending Unavailable Eric Forbes Attending Unavailable Diamante Cleveland Primary Care Provider MD Gautam Burrows Attending Provider LOGAN Bernard Primary Care Provider [phone] MD Piyush Pace Admit Provider MD Piyush Pace Attending Provider [phone] Birgit Aiken Primary Care Physician Birgit Aiken Attending Unavailable Birgit Aiken Admitting Unavailable DO Kerry Linton Attending Unavailable Birgit Aiken Admitting Unavailable Birgit Aiken Attending Unavailable Eric Forbes Attending Unavailable Amanda BERNARD Admitting Unavailable LIONEL MONTERO Referring Unavailable Unallocated , [place] Provider [facility] MD Laura Impepe Attending Provider MD Birgit Aiken Primary Care Provider Stanislav FRAIRE Attending Unavailable DO Kerry Linton Attending Unavailable Isai Hall Attending Unavailable Gladys Saini Attending Unavailable Isai Hall Attending Unavailable Kanchan Sanchez MD Attending Provider [phone] Birgit Aiken MD Primary Care Provider Diamante Cleveland Primary Care Provider [phone] Gautam Burrows MD Attending Provider [phone] Manfred Florez APRN Emergency Provider Gladys Saini H Attending Unavailable Isai Hall Attending Unavailable Pavel Ortega Attending Unavailable Pavel Ortega Admitting Unavailable Pavel Ortega Admitting Unavailable Endy Raphael Attending Unavailable Unavailable Primary Care Provider UnavailSHAQ Howell Attending Unavailable Ari Aguero DO Emergency Provider NO FAMILY, PHYSICIAN Primary Care Provider Unava ilable Piyush Pace Admitting Unavailable Piyush Pace Attending Unavailable Amanda Bernard Primary Care Unavailable Asaad, Imad Attending Unavailable Birgit Aiken Primary Care Unavailable Asaad Imad Admitting Unavailable Asaad Impepe Attending Unavailable Birgit Aiken Primary Care Unavailable Asaad, Imad Admitting Unavailable More Ari M Admitting Unavailable More Ari M Attending Unavailable NO FAMILY, PHYSICIAN Primary Care Unavailable Birgit Aiken Primary Care Unavailable Amanda Florezney Desean Admitting Unavailable Gautam Manfred N Attending Unavailable Gautam Burrows Admitting Unavailab Gautam Banda Attending Unavailab Diamante De León Primary Care Unavailable Allergies Allergy Classification Reported Allergen(s) Allergy Type Date of Onset Reaction(s) Facility Antihistamines (1 source) hydrOXYzine; Translations: [Vistaril] Drug Allergy [facility] Repository Docusate (1 source) Docusate; Translations: [Colace] Drug Allergy [facility] Repository Opioid Agonists (3 sources) Codeine; Translations: [codeine] Drug Allergy Rash, Tachycardia [facility] [address] [facility] Work Phone: QUEtiapine (2 sources) QUEtiapine; Translations: [SEROquel TABS] Drug Allergy [facility] Repository (10 sources) Bisacodyl Drug Allergy 7 Other (See Comments) [place], [place] (20 sources) Codeine; Translations: [codeine] Drug Allergy 7 Hives, Palpitations, Rash, Tachycardia, Red color (finding) [place], [place] (20 sources) QUEtiapine; Translations: [quetiapine] Drug Allergy [facility] Work Phone: (1 source) Codeine Drug Allergy 7 [facility] Repository (1 source) Docusate Drug Allergy 7 [facility] Repository (18 sources) QUEtiapine; Translations: [SEROquel] Drug Allergy [facility] Repository (20 sources) QUEtiapine; Translations: [quetiapine] Drug Allergy 3 [facility] (20 sources) hydrOXYzine; Translations: [hydroxyzine] Drug Allergy 3 Palpitations, Anxiety [facility] (17 sources) Docusate; Translations: [Colace] Drug Allergy [facility] Repository (1 source) Codeine Drug Allergy [address] [place] [address] Repository (1 source) hydrOXYzine Drug Allergy [address] [place] [address] Repository Medications Current Medications Medication Drug Class(es) Dates Sig (Normalized) Sig (Original) acetaminophen 325 mg oral tablet (16 sources) Start: 2023 take 2 tablets by [...] Once, # 2 tab(s), Refills(s) 0, Pharmacy: [facility] #[id number], 157, cm, 11/30/22 13:33:00 EDT, Height/Length Dosing, 73, kg, 11/30/22 13:33:00 EDT, Weight Dosing Start Date: 11/30/22 Status: Ordered busPIRone hydrochloride 15 mg oral tablet (20 sources) Start: 01-13-2024 take 1 tablet by mouth twice daily busPIRone 15 mg Tab 15 mg = 1 tab(s), Oral, BID, # 270 tab(s), Refills(s) 0 Start Date: 01/13/24 Status: Ordered Start: 08-06-2023 take 1 tablet by man th twice daily Buspirone 5 mg tablet Active 5 MG PO Twice daily August 06, 2023 12:00am Start: 05-17-2020 End: 09-21-2020 take 1 tablet by mouth three times daily as needed for anxiety Buspirone 10 mg tablet Discontinued 10 MG PO Three times daily as needed for Anxiety June 07, 2020 12:00am September 21, 2020 10:18am Start: 01-14-2019 take 1 tablet by man th three times daily as needed busPIRone HCl - 10 MG Oral Tablet TAKE 1 TABLET 3 times daily PRN Quantity: 270 Refills: 0 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, 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 Start : 14-Jan-2019 Active busPIRone Quanti ty: 0 Refills: 0 Ordered: 20-Mar-2019 Edwin Lujan Status: Other Generic Substitution Allowed cariprazine 1.5 mg oral capsule (7 sources) Atypical Antipsychotic Start: 11-14-2022 caripra zine (Vraylar) capsule 1.5 mg Start: 03-28-2022 take 1 capsule by [facility] once daily Vraylar 1.5 mg oral capsule 1.5 mg = 1 cap(s), Oral, Daily, # 30 cap(s), Refills(s) 0, Pharmacy: [facility] #[id number], 157.5, cm, 03/28/22 13:50:00 EST, Height/Length Dosing, 79.1, kg, 03/28/22 13:50:00 EST, Weight Dosing Start Date: 03/28/22 Status: Ordered Start: 07-04-2021 take 1 capsule by [facility] once daily Vraylar 1.5 mg oral capsule 1.5 mg = 1 cap(s), Oral, Daily, # 30 cap(s), Refills(s) 0, Pharmacy: [facility] #[id number], 157, cm, 07/04/21 15:06:00 EDT, Height/Length Dosing, 84.8, kg, 07/04/21 15:10:00 EDT, Weight Dosing Start Date: 07/04/21 Status: Ordered cephalexin 500 mg oral capsule (20 sources) Cephalosporin Antibacterial Start: 06-03-2023 End: 06-10-2023 take 1 capsule by mouth every six hours Keflex 500 mg Cap 500 mg = 1 cap(s), Oral, q6hr, X 7 day(s), # 28 cap(s), Refills(s) 0, Pharmacy: [facility] #[id number], 154, cm, 06/03/23 20:33:00 EDT, Height/Length Dosing, 71.8, kg, 06/03/23 20:33:00 EDT, Weight Dosing Start Date: 06/03/23 Stop Date: 06/10/23 Status: Ordered Start: 10-02-2021 End: 10-09-2021 take 1 capsule by mouth every eight hours cephalexin 500 mg Cap 500 mg = 1 cap(s), Oral, q8hr, X 7 day(s), # 21 cap(s), Refills(s) 0, Pharmacy: [facility] #[id number], 157, cm, 09/19/21 10:21:00 EDT, Height/Length Dosing, 86, kg, 09/19/21 10:21:00 EDT, Weight Dosing Start Date: 10/02/21 Stop Date: 10/09/21 Status: Ordered Start: 04-10-2021 End: 04-19-2021 take 1 capsule by mouth every six hours Cephalexin 500 mg capsule Discontinued 500 MG PO Q6H 07 09April 10, 2021 1:00am April 19, 2021 11:28am Start: 08-08-2018 End: 04-13-2020 take 1 capsule by mouth three times daily Cephalexin (Keflex) 500 mg Capsule Discontinued 500 MG PO Three times daily August 08, 2018 12:00am April 13, 2020 2:22pm clonazePAM 0.5 mg oral tablet (5 sources) [...] Edwin Lujan Status: Other Generic Substitution Allowed copper 313 mg drug implant (1 source) Copper-containing Intrauterine Device copper (Paragard) IUD by Intrauterine route 1 (one) time. Active doxepin 3 mg oral tablet (2 sources) Tricyclic Antidepressant Start: 09-20-19 22 take 2 tablets by mouth once daily at bedtime doxepin 3 mg oral tablet 6 mg = 2 tab(s), Oral, Once a day (at bedtime), # 60 tab(s), Refills(s) 0, Pharmacy: [facility] #[id number], 157, cm, 09/19/21 10:21:00 EDT, Height/Length Dosing, 86, kg, 09/19/21 10:21:00 EDT, Weight Dosing Start Date: 09/19/21 Status: Ordered fluconazole 150 mg oral tablet (20 sources) Azole Antifungal Start: 06-17-19 take 1 tablet by mouth once Diflucan 150 mg Tab 150 mg = 1 tab(s), Oral, Once, # 1 tab(s), Refills(s) 0, Pharmacy: [facility] #[id number], 156, cm, 06/17/23 15:35:00 EDT, Height/Length Dosing, 72.2, kg, 06/17/23 15:35:00 EDT, Weight Dosing Start Date: 06/17/23 Status: Ordered Start: 12-16-2022 End: 12-16-2022 fluconazole (Diflucan) table t 150 mg Start: 04-01-2022 End: 06-07-2022 take 1 tablet by mouth once Fluconazole (Diflucan) 150 mg tablet Discontinued 150 MG PO Once April 01, 2022 1:00am June 07, 2022 4:37pm Start: 09-19-2021 take 1 tablet by mouth once Di flucan 150 mg Tab 150 mg = 1 tab(s), Oral, Once, May get refill if symptoms persist a week after taking the first tablet, # 1 tab(s), Refills(s) 1, Pharmacy: [facility] #[id number], 157, cm, 09/19/21 10:21:00 EDT, Height/Length Dosing, [...] 08, 2018 12:00am April 13, 2020 2:22pm FLUoxetine 40 mg oral capsule (2 sources) Serotonin Reuptake Inhibitor Start: 03-27-2024 take 1 capsule by mouth once daily Fluoxetine (Prozac) 40 mg capsule Active 40 MG PO Daily March 27, 2024 1:00am Start: 01-13-2024 take 1 capsule by mo [facility] once daily FLUoxetine 10 mg Cap 10 mg = 1 cap(s), Oral, Daily, # 60 cap(s), Refills(s) 0 Start Date: 01/13/24 Status: Ordered folic acid 1 mg oral tablet (20 sources) Start: 01-13-2024 take 1 tablet by mouth once daily folic acid 1 mg Tab 1 mg = 1 tab(s), Oral, Daily, # 30 tab(s), Refills(s) 0 Start Date: 01/13/24 Status: Ordered Start: 2023 [facility] folic acid 1 mg Tab 1 mg = 1 tab(s), Oral, Daily, Refills(s) 0 Start Date: 01/05/23 Status: Ordered Start: 12-15-2022 folic acid (Fo lvite) tablet 1 mg Start: 06-08-2020 End: 09-21-2020 take 1 tablet by mouth once daily Folic Acid 1 mg tablet Discontinued 1 MG PO Daily June 08, 2020 12:00am September 21, 2020 10:18am gabapentin 800 mg oral tablet (20 sources) Anti-epileptic Agent Start: 04-25-2023 take 1 tablet by mouth three times daily gabapentin 800 mg Tab 800 mg = 1 tab(s), Oral, TID, # 270 tab(s), Refills(s) 0 Start Date: 01/13/24 Status: Ordered Start: 12-16-2022 gabapentin (Ne urontin) capsule 800 mg Start: 08-28-2021 End: 04-06-2023 take 1 tablet by mouth three times daily Gabapentin 800 mg Tablet Discontinued 800 MG PO Three times daily August 28, 2021 12:00am April 06, 2023 5:37pm Start: 04-16-2021 End: 08-13-2021 take 1 tablet by mouth three times daily Gabapentin 800 mg tablet Discontinued 800 MG PO Three times daily 90 April 19, 2021 1:03pm August 13, 2021 2:02pm Start: 09-21-2020 End: 04-16-2021 take 2 capsules by mouth three times daily Gabapentin 400 mg capsule Discontinued 800 MG PO Three times daily September 21, 2020 10:30am April 16, 2021 11:46am Start: 09-21-2020 End: 04-16-2021 take 800 mg by mouth three times daily Gabapentin Discontinued 800 MG PO Three times daily September 21, 2020 10:30am April 16, 2021 11:46am Start: 06-08-2020 End: 09-21-2020 take 1 capsule by mouth twice daily Gabapentin 400 mg capsule Discontinued 400 MG PO Twice daily 0 June 08, 2020 10:26am September 21, 2020 10:17am Start: 06-07-2020 End: 06-08-2020 take 1 capsule by mouth four times daily Gabapentin 400 mg capsule Discontinued 400 MG PO Four times daily June 07, 2020 12:00am June 08, 2020 10:27am Start: 06-05-2020 End: 06-07-2020 take 1 capsule by mouth once daily Gabapentin 400 mg capsule Discontinued 400 MG PO Daily June 05, 2020 12:00am June 07, 2020 6:42am Start: 04-13-2020 End: 05-26-2020 take 1 capsule by mouth four times daily Gabapentin 400 mg capsule Discontinued 400 MG PO Four times daily [...] 11/22/2018 Active Start: 08-07-2018 End: 05-30-2020 take 1 tablet by mouth three times daily Gabapentin 600 mg tablet Discontinued 600 MG PO Three times daily August 07, 2018 12:00am May 30, 2020 11:42am take 2 capsules by m outh four times daily gabapentin (NEURONTIN) 400 MG capsule Take 800 mg by mouth 4 times daily. Active take 1 tablet by man th every twenty-four hours Gabapentin 800 MG 1 tablet Orally Once a day Active hydrOXYzine hydrochloride 50 mg oral tablet (20 sources) Antihistamine Start: 11-06-2022 take 1 tablet by mouth every six hours as needed hydrOXYzine HCl (Atarax) 10 MG tablet TAKE 1 TABLET BY MOUTH every 6 hours as needed for 10 days 11/06/2022 Active Start: 11-04-2022 take 1-2 capsules by mouth four times daily as needed for anxiety Vistaril 25 mg Cap 1-2 cap(s), Oral, QID, PRN as needed for anxiety, # 30 cap(s), Refills(s) 0, Pharmacy: [facility] #[id number], 158, cm, 11/04/22 12:27:00 EDT, Height/Length Dosing, 74.7, kg, 11/04/22 12:27:00 EDT, Weight Dosing Start Date: 11/04/22 Status: Ordered Start: 09-06-2022 End: 04-06-2023 take 1 tablet by mouth twice daily Hydroxyzine Hcl 50 mg tablet Discontinued 50 MG PO Twice daily September 06, 2022 12:00am April 06, 2023 5:37pm On Hold: Hold until seen by your Primary Care Physician Start: 09-06-2022 End: 09-06-2022 Hydroxyzine Hcl Discontinued MG TABLET September 06, 2022 12:00am September 06, 2022 11:48am Start: 08-13-2022 take 1 tablet by man th every eight hours as needed hydrOXYzine HCL (Atarax) 50 mg tablet Take 1 tablet (50 mg) by mouth every 8 hours if needed. 30 tablet 0 12/12/2022 Active Start: 08-13-2022 take 1 tablet by man th four times daily as needed for anxiety hydrOXYzine hydrochloride 50 mg oral tablet 50 mg = 1 tab(s), Oral, QID, PRN for anxiety, # 40 tab(s), Refills(s) 0, Pharmacy: [facility] #[id number], 157.5, cm, 08/13/22 13:00:00 EDT, Height/Length Dosing, 72.9, kg, 08/13/22 13:00:00 EDT, Weight Dosing Start Date: 08/13/22 Status: Ordered Start: 03-09-2022 End: 06-07-2022 take 1 capsule by mouth every eight hours as needed for anxiety Hydroxyzine Pamoate (Vistaril) 50 mg capsule Discontinued 50 MG PO Q8H as needed for anxiety March 09, 2022 1:00am June 07, 2022 [...] day(s), # 9 tab(s), Refills(s) 0, Pharmacy: [facility] #[id number], 157, cm, 08/29/23 22:55:00 EDT, Height/Length Dosing, 77.9, kg, 08/29/23 22:55:00 EDT, Weight Dosing Start Date: 08/30/23 Stop Date: 09/02/23 Status: Ordered Start: 12-16-2022 LORazepam (Ati van) tablet 1 mg Start: 12-15-2022 LORazepam (Ati van) tablet 2 mg Start: 12-12-2022 take 1 tablet by man th every four hours as needed LORazepam (Ativan) 2 MG tablet Take 2 mg by mouth every 4 (four) hours if needed 12/12/2022 Active Start: 12-10-2022 End: 12-14-2022 take 1 tablet by mouth every eight hours as needed, then take 1 tablet by mouth every eight hours as needed Ativan 1 mg Tab 1 mg = 1 tab(s), Oral, q8hr, Take one by mouth every eight hours as needed, X 4 day(s), # 12 tab(s), Refills(s) 0, Pharmacy: [facility] #[id number], 157, cm, 12/10/22 8:08:00 EDT, Height/Length Dosing, 72.2, kg, 12/10/22 8:08:00 EDT, Weight Dosing Start Date: 12/10/22 Stop Date: 12/14/22 Status: Ordered Start: 05-03-2021 End: 05-03-2021 LORazepam (ATIVAN) tablet 1 mg Start: 05-02-2021 End: 05-02-2021 LORazepam (ATIVAN) injection 1 mg Start: 05-02-2021 End: 05-02-2021 LORazepam (ATIVAN) injection 1 mg Start: 04-13-2020 End: 05-26-2020 take 1 tablet by mouth every four hours as needed for anxiety Lorazepam 0.5 mg tablet Discontinued 0.5 MG PO Q4H as needed for Anxiety April 13, 2020 1:00am May 26, 2020 [...] day(s), # 21 tab(s), Refills(s) 0, Pharmacy: [id number], 165, cm, 08/16/22 23:50:00 EDT, Height/Length Dosing, 74.8, kg, 08/16/22 23:50:00 EDT, Weight Dosing Start Date: 08/18/22 Stop Date: 08/20/22 Status: Ordered Start: 03-05-2022 End: 04-06-2023 take 1 tablet by mouth once daily Methadone 10 mg Tablet Discontinued 105 MG PO Daily March 05, 2022 1:00am April 06, 2023 5:37pm On Hold: Hold until seen by your Primary Care Physician Start: 03-05-2022 End: 04-06-2023 take 105 mg [...] 05, 2022 1:00am Methadone HCl Ac tive metroNIDAZOLE 500 mg oral tablet (20 sources) Nitroimidazole Antimicrobial Start: 07-14-2023 End: 07-21-2023 take 1 tablet by mouth twice daily Flagyl 500 mg Tab 500 mg = 1 tab(s), Oral, BID, X 7 day(s), # 14 tab(s), Refills(s) 0, Pharmacy: [facility] #[id number], 156, cm, 07/14/23 11:03:00 EDT, Height/Length [...] For Her - as directed Orally Active Multi Vitamins oral tablet (1 source) Start: 01-13-20 Multi Vitamins oral tablet 1 tab(s), Oral, Daily, 30 tab(s), Refill(s) 0 Start Date: 01/13/24 Status: Ordered Multivitamin (Daily Multi-Vitamin) tablet (1 source) Start: 03-27-19 take 1 tablet by mouth once daily Multivitamin (Daily Multi-Vitamin) tablet Active 1 TAB PO Daily March 27, 2024 1:00am multivitamin with minerals 1 tablet (1 source) Start: 12-16-19 multivitamin with minerals 1 tablet naloxone hydrochloride 40 mg/ml nasal spray (1 source) Opioid Antagonist Start: 08-19-19 naloxone (Narcan) 4 mg/0.1 mL nasal spray 08/18/2022 Active naproxen 250 mg oral tablet (3 sources) Nonsteroidal Anti-inflammatory Drug take 1 tablet by mouth twice daily as needed for pain naproxen (NAPROSYN) 250 MG tablet Take 250 mg by mouth 2 times daily as needed for Pain 0 Active nitrofurantoin, macrocrystals 25 mg / nitrofurantoin, monohydrate 75 mg oral capsule (20 sources) Nitrofuran Antibacterial Start: 09-20-19 End: 09-27-19 take 1 capsule by mouth twice daily Macrobid 100 mg Cap 100 mg = 1 cap(s), Oral, BID, X 7 day(s), # 14 cap(s), Refills(s) 0, Pharmacy: [facility] #[id number], 157, cm, 09/19/21 10:21:00 EDT, Height/Length Dosing, [...] do not open, crush, dissolve, or chew [place] (No Known Home Meds) (1 source) Start: 04-06-2023 [place] (No Known Home Meds) Active April 06, 2023 12:00am nystatin [id number] unt/ml oral suspension (1 source) Polyene Antifungal [...] use. oxybutynin chloride 5 mg oral tablet (2 sources) Cholinergic Muscarinic Antagonist Start: 08-13-2022 oxybutynin (Ditropan) 5 MG tablet Take 5 mg by mouth 08/13/2022 Active 24 hr paliperidone 3 mg extended release oral tablet (18 sources) Atypical Antipsychotic Start: 01-02-2023 take 1 tablet by mouth at bedtime Invega 3 mg oral tablet, extended release 3 mg = 1 tab(s), Oral, Bedtime, # 30 tab(s), Refills(s) 0 Start Date: 01/02/23 Status: Ordered paliperidone (In schafer) 3 MG 24 hr tablet 1 (one) time each day at the same time Active phenazopyridine hydrochloride 100 mg oral tablet (3 sources) Start: 07-14-2023 End: 07-17-2023 take 1 tablet by mouth three times daily Pyridium 100 mg Tab 100 mg = 1 tab(s), Oral, TID, X 3 day(s), # 9 tab(s), Refills(s) 0, Pharmacy: [facility] #[id number], 156, cm, 07/14/23 11:03:00 EDT, Height/Length [...] with food or milk. polyethylene glycol 3350 20869 mg powder for oral solution (1 source) Osmotic Laxative Start: 07-27-19 End: 08-10-19 take 17 g by mouth once daily MiraLax 3350 Oral Pwdr for Recon 249 gram 17 gm, Oral, Daily, X 14 day(s), # 255 gm, Refills(s) 0, [facility], 157, cm, 07/04/21 15:06:00 EDT, Height/Length Dosing, 84, kg, 07/26/21 18:15:00 EDT, Weight Dosing Start Date: 07/26/21 Stop Date: 08/09/21 Status: Ordered polyethylene glycol 3350 626490 mg / potassium chloride 2970 mg / sodium bicarbonate 6740 mg / sodium chloride 5860 mg / sodium sulfate 86749 mg powder for oral solution (1 source) Osmotic Laxative Start: 04-09-19 Peg 3350-Electrolytes (Golytely) 236-22.74-6.74 -5.86 gram recon soln Active 240 ML PO Q10M 4000 1 April 09, 2024 1:00am until fecal effluent is clear predniSONE 20 mg oral tablet (20 sources) Start: 08-29-19 End: 09-03-19 take 2 tablets by mouth once daily predniSONE (Deltasone) 20 MG tablet Take 40 mg by mouth Daily 08/28/2022 Active Start: 03-19-2022 End: 04-01-2022 Prednisone 10 mg tablet Discontinued 60 MG PO Daily March 19, 2022 1:00am April 01, 2022 7:13pm administer with food or milk Start: 03-19-2022 End: 04-01-2022 take 60 mg by mouth once daily at mealtime Prednisone Discontinued 60 MG PO Daily March 19, 2022 1:00am April 01, 2022 7:13pm administer with food or milk Start: 06-08-2020 End: 09-21-2020 take 1 tablet by mouth once daily Prednisone 20 mg Tablet Discontinued 20 MG PO Daily June 08, 2020 12:00am September 21, 2020 10:18am propranolol hydrochloride 10 mg oral tablet (20 sources) beta-Adrenergic Jus Start: 01-13-2024 take 1 tablet by mouth once daily propranolol 10 mg Tab 10 mg = 1 tab(s), Oral, Daily, # 180 tab(s), Refills(s) 0 Start Date: 01/13/24 Status: Ordered Start: 08-06-2023 End: 11-22-2023 take 1 tablet by mouth once daily Propranolol 10 mg tablet Discontinued 10 MG PO Daily August 06, 2023 12:00am November 22, 2023 11:56am Start: 04-25-2023 End: 08-06-2023 take 1 tablet by mouth once daily Propranolol 40 mg tablet Discontinued 40 MG PO Daily April 25, 2023 12:00am August 06, 2023 9:59pm Start: 01-02-2023 propranolol 40 mg, BID, Refills(s) 0 Start Date: 01/02/23 Status: Ordered Start: 11-14-2022 take 1 tablet by man th twice daily for anxiety, then take 2 tablets by mouth twice daily for anxiety propranolol (Inderal) 40 MG tablet TAKE 1 TABLET BY MOUTH TWICE DAILY, may increase to 2 (TWO) tabs twice daily as tolerated for anxiety symptoms 11/14/2022 Active Start: 04-13-2020 End: 05-30-2020 take 2 tablets by mouth twice daily Propranolol 20 mg tablet Discontinued 40 MG PO Twice daily April 13, 2020 1:00am May 30, 2020 11:42am Start: 04-13-2020 End: 05-30-2020 take 40 mg [...] 13, 2020 2:22pm Therapeutic Multiple Vitamin Tab (16 sources) Start: 2023 Therapeutic Mu ltiple Vitamin Tab Oral, Daily, Refill(s) 0 Start Date: 01/05/23 Status: Ordered thiamine 100 mg oral tablet (20 sources) Start: 03-27-2024 take 1 tablet by mouth once daily Thiamine Hcl (Vitamin B1) (Vitamin B-1) 100 mg tablet Active 100 MG PO Daily March 27, 2024 1:00am Start: 2023 take 1 tablet by man th once daily thiamine 100 mg Tab 100 mg = 1 tab(s), Oral, Daily, Refills(s) 0 Start Date: 01/05/23 Status: Ordered Start: 06-08-2020 End: 12-04-2020 take 1 tablet by mouth once daily Thiamine Hcl (Vitamin B1) 100 mg tablet Discontinued 100 MG PO Daily June 08, 2020 12:00am December 04, 2020 4:06pm topiramate 25 mg oral tablet (1 source) Start: 01-13-2024 take 1 tablet by mouth once daily topiramate 25 mg Tab 25 mg = 1 tab(s), Oral, Daily, # 60 tab(s), Refills(s) 0 Start Date: 01/13/24 Status: Ordered traZODone hydrochloride 50 mg oral tablet (20 sources) Serotonin Reuptake Inhibitor Start: 12-12-2022 traZODone (Desyrel) 50 MG tablet Take 50 mg by mouth as needed at bedtime 12/12/2022 Active Start: 01-02-2022 take 1 tablet by man th once daily at bedtime traZODONE 100 mg Tab 100 mg = 1 tab(s), Oral, Once a day (at bedtime), # 30 tab(s), Refills(s) 5, [facility]: [id number], 157.5, cm, 10/06/21 16:25:00 EDT, Height/Length Dosing, 83.1, kg, 10/06/21 16:25:00 EDT, Weight Dosing Start Date: 01/02/22 Status: Ordered Start: 07-04-2021 take 1 tablet by [facility] once daily at bedtime traZODONE 100 mg Tab 100 mg = 1 tab(s), Oral, Once a day (at bedtime), # 90 tab(s), Refills(s) 0, Pharmacy: [id number], 157, cm, 07/04/21 15:06:00 EDT, Height/Length Dosing, 84.8, kg, 07/04/21 15:10:00 EDT, Weight Dosing Start Date: 07/04/21 Status: Ordered Start: 04-16-2021 End: 08-13-2021 take 1 tablet by mouth once daily at bedtime Trazodone 150 mg tablet Discontinued 150 MG PO Daily at bedtime April 19, 2021 1:03pm August 13, 2021 2:02pm 24 hr venlafaxine 37.5 mg extended release oral capsule (20 sources) Serotonin and Norepinephrine Reuptake Inhibitor Start: 07-05-2022 venlafaxine XR (Effexor XR) 37.5 MG 24 hr capsule 07/05/2022 Active Start: 08-25-2021 take 1 capsule by [facility] once daily Effexor XR 150 mg Cap-ER 150 mg = 1 cap(s), Oral, Daily, # 30 cap(s), Refills(s) 0, [facility], 07/04/21 15:06:00 EDT, Height/Length Dosing, 84, kg, 07/26/21 18:15:00 EDT, Weight Dosing Start Date: 08/25/21 Status: Ordered Start: 07-04-2021 take 1 capsule by [facility] once daily Effexor XR 150 mg Cap-ER 150 mg = 1 cap(s), Oral, Daily, # 90 cap(s), Refills(s) 1, Pharmacy: [facility], 157, cm, 07/04/21 15:06:00 EDT, Height/Length [...] 02-Jun-2020 Active Start: 05-30-2020 End: 12-04-2020 take 1 capsule by mouth once daily at bedtime Venlafaxine 37.5 mg Capsule,Extended Release 24hr Discontinued 37.5 MG PO Daily at bedtime [...] daily 30 capsule 3 10/23/2018 Active venlafaxine XR ( Effexor XR) 225 MG 24 hr tablet 1 (one) time each day at the same time Active venlafaxine (EFF EXOR) 100 MG tablet Take 150 mg by mouth 3 times daily Active ziprasidone 20 mg oral capsule (6 sources) Atypical Antipsychotic Start: 01-13-2024 take 1 capsule by mouth twice daily ziprasidone 20 mg Cap 20 mg = 1 cap(s), Oral, BID, # 180 cap(s), Refills(s) 0 Start Date: 01/13/24 Status: Ordered Start: 08-10-2023 End: 11-22-2023 take 1 capsule by mouth once daily Ziprasidone Hcl 20 mg Capsule Discontinued 20 MG PO Daily with supper August 10, 2023 12:00am November 22, 2023 11:56am Zofran ODT 4 mg Tab-Dis (13 sources) Start: 06-03-2023 take 1 tablet by mouth every eight hours as needed for nausea Zofran ODT 4 mg Tab-Dis 4 mg = 1 tab(s), Oral, q8hr, PRN Nausea/Vomiting, # 12 tab(s), Refills(s) 0, Pharmacy: [facility] #[id number], 154, cm, 06/03/23 20:33:00 EDT, Height/Length Dosing, 71.8, kg, 06/03/23 20:33:00 EDT, Weight Dosing Start Date: 06/03/23 Status: Ordered Completed/Discontinued Medications Medication Drug Class(es) Dates Sig (Normalized) Sig (Original) acetaminophen 325 mg / HYDROcodone bitartrate 5 mg oral tablet (20 sources) Opioid Agonist Start: 01-25-2017 End: 08-07-2018 take 1 tablet by mouth every four to six hours as needed for pain Hydrocodone-Aceta minophen (Joppa) 5-325 mg tablet Discontinued 1 TAB PO EVERY 4-6 HOURS as needed for pain January 25, 2017 August 07, 2018 9:06pm [...] three times daily as needed for anxiety Alprazolam (Xanax) 0.5 mg tablet Discontinued 0.5 MG PO Three times daily as needed for anxiety 14 June 08, 2020 12:00am September 21, 2020 10:18am amoxicillin 875 mg / clavulanate 125 mg oral tablet (20 sources) Penicillin-class Antibacterial Start: 04-01-2022 End: 06-07-2022 take 1 tablet by mouth twice daily Amoxicillin-Pot Clavulanate 875-125 mg tablet Discontinued 1 TAB PO Twice daily April 01, 2022 1:00am June 07, 2022 4:38pm Start: 01-25-2017 End: 01-30-2017 take 1 tablet by mouth twice daily Amoxicillin-Pot Clavulanate (Augmentin) 875-125 mg tablet Discontinued 1 TAB PO Twice daily 11 15January 25, 2017 1:00am January 29, 2017 1:00am January 30, 2017 1:03am ARIPiprazole [...] oral solution (1 source) alpha-Adrenergic Agonist, Uncompetitive O-jpvxyb-X-aspartate Receptor Antagonist, Sigma-1 Agonist Start: 04-04-2020 End: 04-13-2020 take 5 mL by mouth every four to six hours brompheniramine/pseudoephedrine/dextrome thorphan [id number]/5 mL oral syrup ; 5 milliliter(s) orally [...] 28, 2021 12:00am March 05, 2022 2:58pm chlordiazePOXIDE hydrochloride 10 mg oral capsule (7 sources) Benzodiazepine Start: 08-10-2023 End: 11-22-2023 take 1 capsul e by mouth once daily Chlordiazepoxide Hcl 10 mg Capsule Disco ntinued 10 MG PO Daily 2 2 August 10, 2023 12:00am November 22, 2023 11:56am Start: 12-12-2022 chlordiazePOXI DE (Librium) 25 MG capsule 25 mg 12/12/2022 Active Start: 12-12-2022 chlordiazePOXI DE (Librium) 25 mg capsule Take 2 capsules by mouth every 6 hours for 6 doses, then 1 capsule every 6 hours for 4 doses, then 1 capsule every 8 hours for 3 doses, then 1 capsule every 12 hours for 2 doses, then 1 capsule after 25 hours 22 capsule 0 12/12/2022 Active clindamycin 150 mg oral capsule (20 sources) Lincosamide Antibacterial Start: 04-03-2022 End: 06-07-2022 take 3 capsules by mouth every eight hours Clindamycin Hcl 150 mg capsule Discontinued 450 MG PO Q8H 63 7 April 03, 2022 1:00am June 07, 2022 4:37pm Start: 04-03-2022 End: 06-07-2022 take 450 mg by mouth every eight hours Clindamycin Hcl Discontinued 450 MG PO Q8H 63 7 April 03, 2022 1:00am June 07, 2022 4:37pm cloNIDine hydrochloride 0.1 mg oral tablet (20 sources) Central alpha-2 Adrenergic Agonist Start: 02-07-2023 End: 11-22-2023 take 1 tablet by mouth twice daily Clonidine Hcl 0.1 mg tablet Discontinued 0.1 MG PO Twice daily April 25, 2023 12:00am November 22, 2023 11:56am Start: 08-16-2022 take 1 tablet by man th twice daily cloNIDine 0.1 mg tab 0.1 mg = 1 tab(s), Oral, BID, # 60 tab(s), Refills(s) 11, Pharmacy: [facility] #[id number], 157, cm, 08/15/22 13:49:00 EDT, Height/Length Dosing, 72.9, kg, 08/15/22 13:49:00 EDT, Weight Dosing Start Date: 08/16/22 Status: Ordered Start: 06-07-2022 End: 04-06-2023 take 1 tablet by mouth once daily Clonidine Hcl 0.1 mg tablet Discontinued 0.1 MG PO Daily June 07, 2022 12:00am April 06, 2023 5:37pm Start: 04-16-2021 End: 08-13-2021 take 1 tablet by mouth twice daily Clonidine Hcl 0.1 mg tablet Discontinued 0.1 MG PO Twice daily April 19, 2021 1:03pm August 13, 2021 2:02pm disulfiram 250 mg oral tablet (20 sources) Aldehyde Dehydrogenase Inhibitor Start: 04-19-2021 End: 07-26-2021 take 1 tablet by mouth once daily Disulfiram 250 mg Tablet Discontinued 250 MG PO Daily April 19, 2021 1:00am July 26, 2021 4:01pm Start: 09-21-2020 End: 12-04-2020 Disulfiram 250 mg tablet Dis continued MG TABLET September 21, 2020 12:00am December 04, 2020 4:05pm Start: 09-21-2020 End: 12-04-2020 Disulfiram Discontinued MG T ABLET September 21, 2020 12:00am December 04, 2020 4:05pm escitalopram 5 mg oral tablet (17 sources) Serotonin Reuptake Inhibitor Start: 06-10-2022 End: 09-06-2022 take 1 tablet by mouth once daily Escitalopram Oxalate 5 mg Tablet Discontinued 5 MG PO Daily June 10, [...] Nonsteroidal Anti-inflammatory Drug Start: 04-08-2023 End: 04-25-2023 take 4 tablets by mouth every twenty-four hours for pain Ibuprofen 600 mg tablet Discontinued 600 MG PO Every 6 hours as needed for Pain April 08, 2023 1:00am April 25, 2023 6:02pm do not exceed 4 doses in a 24 hour period Start: 06-23-2022 ibuprofen 600 MG tablet Take 1 tablet by mouth in the morning and 1 tablet at noon and 1 tablet in the evening and 1 tablet before bedtime. 06/23/2022 Active Start: 03-19-2022 End: 04-01-2022 take 4 tablets by mouth every twenty-four hours for pain Ibuprofen 600 mg tablet Discontinued 600 MG PO Every 6 hours as needed for Pain March 19, 2022 1:00am April 01, 2022 7:13pm do not exceed 4 doses in a 24 hour period Start: 03-11-2017 End: 06-07-2022 take 1 tablet by mouth three times daily as needed for pain Ibuprofen 800 mg Tablet Discontinued 800 MG PO Three times daily as needed for Pain August 28, 2021 12:00am June 07, 2022 4:39pm Start: 01-25-2017 End: 08-07-2018 take 4 tablets by mouth every twenty-four hours for pain Ibuprofen 600 mg tablet Discontinued 600 MG PO EVERY 4-6 HOURS as needed for pain January 25, 2017 1:00am August 07, 2018 9:06pm do not exceed 4 doses in a 24 hour period iopamidol (ISOVUE-370) 76 % injection 75 mL (1 source) Start: 05-03-2021 End: 05-03-2021 iopamidol (ISOVUE-370) 76 % injection 75 mL levothyroxine sodium 0.112 mg oral tablet (20 sources) l-Thyroxine Start: 04-16-2021 End: 07-26-2021 take 1 tablet by mouth once daily Levothyroxine 112 mcg tablet Discontinued 112 MCG PO DAILY@0630 30 April 19, 2021 1:03pm July 26, 2021 4:01pm loratadine 10 mg oral tablet (5 sources) Start: 08-06-2023 End: 11-22-2023 take 1 tablet by mouth once daily Loratadine (Allergy Relief (Loratadine)) 10 mg tablet Discontinued 10 MG PO Daily August 06, 2023 12:00am November 22, 2023 11:56am lurasidone hydrochloride 120 mg oral tablet (20 [...] MG TABS tablet Take by mouth daily Active take 1 tablet by man th once daily Latuda 120 MG Oral Tablet Take 1 tablet daily Quantity: 90 Refills: 0 Ordered: 15-Jul-2020 Nini Rojas Active methylPREDNISolone 4 mg oral tablet (5 sources) Corticosteroid Start: 08-06-2023 End: 11-22-2023 Methylprednisolone 4 mg tablets,dose pack Discontinued 4 MG PO .COMPLEX August 06, 2023 12:00am November 22, 2023 11:56am as directed Multiple Vitamin (MULTI-VITAMINS) TABS (2 sources) Start: [...] system (20 sources) Cholinergic Nicotinic Agonist Start: 08-10-2023 End: 11-07-2023 apply 1 dose transdermal route every twenty-four hours Nicotine 21 mg/24 hr Patch 24 Hour Discontinued 21 MG TRANSDERML Daily August 10, 2023 12:00am November 07, 2023 9:38am Start: 08-10-2023 End: 11-07-2023 Nicotine Discontinued 21 MG TRANSDERML Daily August 10, 2023 12:00am November 07, 2023 9:38am Start: 12-16-2022 End: 12-16-2022 nicotine (Nicoderm CQ) patch - Omnicell Override Pull Start: 04-19-2021 End: 07-26-2021 apply 1 dose transdermal route every twenty-four hours Nicotine 21 mg/24 hr Patch 24 Hour Discontinued 1 EACH TRANSDERML Daily April 19, 2021 1:00am July 26, 2021 4:01pm Start: 04-19-2021 End: 07-26-2021 Nicotine Discontinued 1 EACH TRANSDERML Daily April 19, 2021 1:00am July 26, 2021 4:01pm Start: 06-08-2020 End: 09-21-2020 apply 1 dose transdermal route every twenty-four hours Nicotine 14 mg/24 hr Patch 24 Hour Discontinued 14 PATCH TRANSDERML Daily June 08, 2020 12:00am September 21, 2020 10:18am Start: 06-08-2020 End: 09-21-2020 apply 1 dose transdermal route once daily Nicotine Discontinued 14 PATCH TRANSDERML Daily June 08, 2020 12:00am September 21, 2020 10:18am Start: 05-30-2020 End: 06-05-2020 apply 1 dose transdermal route every twenty-four hours Nicotine 21 mg/24 hr Patch 24 Hour Discontinued 1 EACH TRANSDERML Daily May 30, 2020 12:00am June 05, 2020 1:22pm Start: 05-30-2020 End: 06-05-2020 Nicotine Discontinued 1 EACH TRANSDERML Daily May 30, 2020 12:00am June 05, 2020 1:22pm ondansetron 4 mg oral tablet (20 sources) Serotonin-3 Receptor Antagonist Start: 04-25-2023 End: 08-06-2023 take 1 tablet by mouth every eight hours Ondansetron Hcl 4 mg tablet Discontinued 4 MG PO Q8H 15 April 25, 2023 12:00am August 06, 2023 9:59pm Start: 2023 End: 01-10-2023 take 1 tablet by mouth every six hours as needed for nausea Zofran 4 mg Tab 4 mg = 1 tab(s), Oral, q6hr, PRN Nausea, X 5 day(s), # 20 tab(s), Refills(s) 0, Pharmacy: [id number], 155, cm, 01/05/23 1:00:00 EST, Height/Length Dosing, 73, kg, 01/05/23 1:00:00 EST, Weight Dosing Start Date: 01/05/23 Stop Date: 01/10/23 Status: Ordered Start: 12-12-2022 take 1 tablet by man th three times daily as needed ondansetron ODT (Zofran-ODT) 4 MG disintegrating tablet Take 4 mg by mouth 3 (three) times a day as needed 12/12/2022 Active Start: 12-10-2022 take 1 tablet by man th every six hours as needed for nausea Zofran 4 mg Tab 4 mg = 1 tab(s), Oral, q6hr, PRN Nausea, Take one tab by mouth every six hours as needed for nausea, # 10 tab(s), Refills(s) 0, Pharmacy: [id number], 157, cm, 12/10/22 8:08:00 EDT, Height/Length Dosing, 72.2, kg, 12/10/22 8:08:00 EDT, Weight Dosing Start Date: 12/10/22 Status: Ordered Start: 06-12-2020 End: 09-21-2020 take 1 tablet by mouth every eight hours as needed for nausea and vomiting Ondansetron Hcl (Zofran) 4 mg tablet Discontinued 4 MG PO Q8H as needed for nausea and vomiting 6 2 June 12, 2020 12:00am September [...] Substitution Allowed PHENobarbital 130 mg/ml injectable solution (3 sources) Start: 12-15-2022 End: 12-15-2022 PHENobarbital (Luminal) injection 260 mg Start: 12-15-2022 End: 12-15-2022 PHENobarbital (Luminal) inje ction 260 mg Start: 06-26-2022 PHENobarbital (Luminal) 16.2 MG tablet 06/26/2022 Active rOPINIRole 0.5 mg oral tablet (4 sources) [...] needed (RLS) 90 tablet 0 10/23/2018 Active Sod Picosulf-Mag Ox-Citric Ac (4 sources) Start: 11-07-2023 End: 03-27-2024 take 1 mL by mouth once daily Sod Picosulf-Mag Ox-Citric Ac (Clenpiq) 10 mg-3.5 gram- 12 gram/175 mL solution Discontinued 175 ML PO Daily 02 11November 07, 2023 12:00am March 27, 2024 1:20pm please follow instructions provided by Dr. Zambrano's office. Start: 11-07-2023 take 1 mL by mouth once daily Sod Picosulf-Mag Ox-Citric Ac (Clenpiq) 10 mg-3.5 gram- 12 gram/175 mL solution Active 175 ML PO Daily 02 11November 06, 2023 11:00pm please follow instructions provided by Dr. Zambrano's office. Start: 11-07-2023 take 1 mL by mouth once daily Sod Picosulf-Mag Ox-Citric Ac (Clenpiq) 10 mg-3.5 gram- 12 gram/175 mL solution Active 175 ML PO Daily 02 11November 07, 2023 12:00am please follow instructions provided by Dr. Zambrano's office. sulfamethoxazole 800 mg / trimethoprim 160 mg oral tablet (20 sources) Dihydrofolate Reductase Inhibitor Antibacterial, Sulfonamide Antimicrobial [...] Acid-ergic Agonist Start: 01-25-2017 End: 08-07-2018 take 1 tablet by mouth once daily at bedtime Zolpidem 5 mg tablet Discontinued 5 MG PO Daily at bedtime January 25, 2017 1:00am August 07, 2018 9:06pm Problems Active Problems Problem Classification Problem Date Documented Da te Episodic/Chronic Abdominal pain (7 sources) Abdominal pain; Translations: [Unspecified abdominal pain] Onset: 07-26-2021 Episodic Administrative/social admission (20 sources) Repeated prescription; Translations: [Encounter for issue of repeat prescription] Onset: 01-11-2024 04-13-2020 Episodic Alcohol-related disorders (20 sources) Alcohol abuse; Translations: [Alcohol withdrawal syndrome] Onset: 05-03-2021 Chronic Alcohol-related disorders (20 sources) Alcohol intoxication; Translations: [Alcohol use, unspecified with intoxication, unspecified] Onset: 03-12-2022 01-22-2021 Episodic Anxiety disorders (20 sources) Anxiety; Translations: [Generalized anxiety disorder] Onset: 12-14-2016 Resolved: 04-10-2018 04-10-2018 Chronic Cardiac dysrhythmias (14 sources) Palpitations; Translations: [Palpitations] Onset: 12-10-2022 Episodic Diseases of white blood cells (1 source) Leukocytosis; Translations: [Elevated white blood cell count, unspecified] Onset: 08-17-2022 Chronic E Codes: Natural/environment (20 sources) Dog bite - wound; Translations: [Bitten by dog, initial encounter] 04-03-2022 Episodic Epilepsy; convulsions (2 sources) Seizure; Translations: [Unspecified convulsions] Onset: 07-03-2023 Episodic Fluid and electrolyte disorders (1 source) Dehydration; Translations: [Dehydration] Onset: 08-17-2022 Episodic Genitourinary symptoms and ill-defined conditions (20 sources) Dysuria; Translations: [Dysuria] Onset: 11-30-2022 11-30-2022 Episodic Headache; including migraine (2 sources) Headache; Translations: [Headache] Episodic Hepatitis (20 sources) Chronic hepatitis C; Translations: [Chronic viral hepatitis C] Onset: 11-26-2023 06-08-2020 Chronic Hepatitis (20 sources) Viral hepatitis C; Translations: [Unspecified viral hepatitis C without hepatic coma] 11-19-2017 Episodic Immunizations and screening for infectious disease (20 [...] anemia, unspecified] Episodic Open wounds of extremities (20 sources) Dog bite of hand; Translations: [Open [...] examination] Episodic Other aftercare (1 source) Other director of education (current) drug therapy; Translations: [OTH [facility] CURRENT DRUG THERAPY] Onset: 07-31-2021 Episodic Other [...] vagina] Onset: 06-17-2023 Episodic Other gastrointestinal disorders (4 sources) Constipation; Translations: [Constipation, unspecified] 11-07-2023 Episodic Other hereditary and degenerative nervous system conditions (16 sources) Restless legs; Translations: [Restless legs syndrome [...] Onset: 2023 Episodic Other lower respiratory disease (20 sources) Dyspnea; Translations: [Dyspnea, unspecified] 04-11-2022 Episodic [...] Chronic Other nutritional; endocrine; and metabolic disorders (16 sources) Hypomagnesemia; Translations: [Hypomagnesemia] 09-06-2022 Chronic Other [...] adult personality and behavior] Onset: 07-05-2023 Chronic Pneumonia (except that caused by tuberculosis or sexually transmitted disease) (2 sources) Pneumonia, unspecified organism; Translations: [Pneumonia, unspecified organism] Onset: 03-05-2024 Episodic Poisoning by other medications and drugs (20 [...] use disorder] 11-29-2020 Episodic Residual codes; unclassified (18 sources) Altered mental status; Translations: [Altered mental status, unspecified] 06-07-2022 Episodic Residual codes; unclassified (3 sources) Altered mental status, unspecified; Translations: [Altered mental status] 06-07-2022 Episodic Residual codes; unclassified (1 source) Tobacco user; Translations: [Tobacco use] Onset: 2023 Episodic Residual codes; unclassified (1 source) Hallucinations; Translations: [Hallucinations, unspecified] Onset: 08-06-2023 Episodic Residual codes; unclassified (5 sources) Personal history of other specified conditions; Translations: [History of seizure] 01-31-2021 Episodic Residual codes; unclassified (1 source) H/O: Disorder; Translations: [Personal history of other specified conditions] Onset: 01-11-2024 Episodic Schizophrenia and other psychotic disorders (1 source) Psychotic disorder; Translations: [Unspecified psychosis not due to a substance or known physiological condition] Onset: 10-16-2024 Chronic Skin and subcutaneous tissue infections (20 sources) [...] (20 sources) Suicidal thoughts; Translations: [Suicidal ideation] Onset: 01-11-2024 04-15-2021 Episodic Unclassified (9 sources) Patient encounter [...] Other Problems Problem Classification Problem Date Documented Da te Episodic/Chronic Adjustment disorders (10 sources) Grief finding; Translations: [Adjustment disorder with depressed mood] Onset: 10-30-2016 Resolved: 04-10-2018 04-10-2018 Chronic Appendicitis and other appendiceal conditions (6 sources) Acute appendicitis; Translations: [Unspecified acute appendicitis] Onset: 03-12-2021 03-12-2021 Episodic Miscellaneous mental health disorders (10 sources) Adjustment insomnia; Translations: [Acute insomnia] Onset: 09-18-2016 Resolved: 04-10-2018 04-10-2018 Episodic Mood disorders (4 sources) Bipolar disorder, most recent episode depression; Translations: [Bipolar depression] Other aftercare (1 source) Post-discharge follow-up; Translations: [Hospital discharge follow-up] Other gastrointestinal disorders (6 sources) Constipation, unspecified; Translations: [Constipation, unspecified] Onset: 07-26-2021 Episodic Schizophrenia and other psychotic disorders (8 sources) Brief psychotic disorder; Translations: [Acute psychosis] Onset: 08-06-2023 08-07-2023 Episodic Unclassified (1 source) History finding; Translations: [...] Test Name Value Interpretation Reference Range Facility Amphetamine Screen Ql (U)Ord ered By: Ari Aguero on 04-28-2024 Amphetamines Ql (U) Amphetamines screen Negativ e [facility] Appearance of UrineOrdered B y: Ari Aguero on 04-28-2024 Appearance (U) Urine appearance Clear [facility] Barbiturates [Presence] in U rine by Screen methodOrdered By: Ari Aguero on 04-28-2024 Barbiturates Screen Ql (U) Barbiturates [Presence] in Urine by Screen method Negative [facility] Benzodiazepines Screen Ql (U )Ordered By: Ari Aguero on 04-28-2024 Benzodiazepines Ql (U) Benzodiazepines [Presence] in Urine by Screen method Negative [facility] Benzoylecgonine [Presence] i n Urine by Screen methodOrdered By: Ari Aguero on 04-28-2024 Benzoylecgonine Screen Ql (U) Benzoylecgonine [Presence] in Urine by Screen method Negative [facility] Bilirubin Test strip Ql (U)O rdered By: Ari Aguero on 04-28-2024 Bilirubin Ql (U) Bilirubin.total [Presence] in Urine by Test strip Negative [facility] Cannabinoids [Presence] in U rine by Screen methodOrdered By: Air Aguero on 04-28-2024 Cannabinoids Screen Ql (U) Cannabinoids [Presence] in Urine by Screen method Negative [facility] Comment on above: These are unconfirme d results and should not be used for legal purposes. Drug Cut-Off Concentration: AMPH 1000 ng/mL JANELL 200 ng/mL JAMES 200 ng/mL COCM 300 ng/mL OP 300 ng/mL PCP 25 ng/mL THC 20 ng/mL Color Auto (U)Ordered By: Robin Aguero on 04-28-2024 Color (U) Color of Urine by Auto Yellow [facility] Drug Screen,Urineon 04-29-19 25 Amphetamine Screen,Urine Negative Normal Negative [facility] Comment on above: Performed By: #### U HCG, UA, URDS #### [address] Barbiturate Screen,Urine Negative Normal Negative [facility] Comment on above: Performed By: #### U HCG, UA, URDS #### [facility] [address] [place] [address] [place] Benzodiazepines Screen,Urine Negative Normal Negative [facility] Comment on above: Performed By: #### U HCG, UA, URDS #### [place] [address] [place] Cannabinoid Screen,Urine Negative Normal Negative [facility] Comment on above: Result Comment: Thes e are unconfirmed results and should not be used for legal purposes. Drug Cut-Off Concentration: AMPH 1000 ng/mL JANELL 200 ng/mL JAMES 200 ng/mL COCM 300 ng/mL OP 300 ng/mL PCP 25 ng/mL THC 20 ng/mL PERFORMED BY: [place] [address] PATHOLOGIST COMPUTER AIDED DESIGN TECHNICIAN CONCEPCION GLEASON M.D. Performed By: #### U HCG, UA, URDS #### [facility] [address] Cocaine Screen,Urine Negative Normal Negative [facility] Comment on above: Performed By: #### U HCG, UA, URDS #### [facility] [address] Opiate Screen,Urine Negative Normal Negative [facility] Comment on above: Performed By: #### U HCG, UA, URDS #### [facility] [address] Phencyclidine Screen,Urine Negative Normal Negative [facility] Comment on above: Performed By: #### U HCG, UA, URDS #### [facility] [address] Glucose [Mass/volume] in Uri ne by Test stripOrdered By: Ari Aguero on 04-28-2024 Glucose Test strip (U) [Mass/Vol] Glucose [Mass/volume] in Urine by Test strip Normal [facility] HCG ( test) IA.rapi d Ql (U)Ordered By: Ari Aguero on 04-28-2024 HCG ( test) Ql (U) Urine human chorionic gonadotropin (hCG) detection by immunoassay [facility] HCG,Urineon 04-28-2024 Beta HCG ( test) Ql (U) Negative Normal [facility] Comment on above: Order Comment: Name Collection Type:: Clean-Voided Midstream Result Comment: PERF ORMED BY: [address] [place] [address] PATHOLOGIST COMPUTER AIDED DESIGN TECHNICIAN CONCEPCION GLEASON M.D. Performed By: #### U HCG, UA, URDS #### [facility] [address] [place] [address] Hemoglobin Test strip Ql (U) Ordered By: Ari Aguero on 04-28-2024 Hemoglobin Ql (U) Hemoglobin [Presence ] in Urine by Test strip Negative [facility] Ketones Test strip Ql (U)Ord ered By: Ari Aguero on 04-28-2024 Ketones Ql (U) Ketones [Presence] i n Urine by Test strip Negative [facility] Leukocyte esterase [Presence ] in Urine by Test stripOrdered By: Ari Aguero on 04-28-2024 Leukocyte esterase Test strip Ql (U) Leukocyte esterase [Presence] in Urine by Test strip Negative [facility] Nitrite Test strip Ql (U)Ord ered By: Ari Aguero on 04-28-2024 Nitrite Ql (U) Nitrite [Presence] i n Urine by Test strip Negative [facility] Opiates [Presence] in Urine by Screen methodOrdered By: Ari Aguero on 04-28-2024 Opiates Screen Ql (U) Opiates [Presence] in Urine by Screen method Negative [facility] Phencyclidine Screen Ql (U)O rdered By: Ari Aguero on 04-28-2024 Phencyclidine Ql (U) Phencyclidine [Pres ence] in Urine by Screen method Negative [facility] Protein Test strip (U) [Mass /Vol]Ordered By: Ari Aguero on 04-28-2024 Protein (U) [Mass/Vol] Protein [Mass/volume] in Urine by Test strip Negative [facility] Specific gravity Test strip (U) [Rel density]Ordered By: Ari Aguero on 04-28-2024 Specific gravity (U) [Rel density] Specific gravity of Urine by Test strip 1.001-1.030 [facility] Urinalysison 04-28-2024 Appearance (U) Clear Normal Clear [facility] [place] [facility] Comment on above: Order Comment: Name Collection Type:: Clean-Voided Midstream Performed By: #### U HCG, UA, URDS #### [facility] [address] [place] [address] [place] Bilirubin,Urine Negative Normal Negative [facility] Comment on above: Order Comment: Name Collection Type:: Clean-Voided Midstream Performed By: #### U HCG, UA, URDS #### [facility] [address] [place] [id number] [place] Color (U) Yellow Normal Yellow [facility] Comment on above: Order Comment: Name Collection Type:: Clean-Voided Midstream Performed By: #### U HCG, UA, URDS #### [address] Glucose Ql (U) Normal Normal Normal [facility] [place] [facility] Comment on above: Order Comment: Name Collection Type:: Clean-Voided Midstream Performed By: #### U HCG, UA, URDS #### [address] Ketones Ql (U) Negative Normal Negative [facility] [place] [facility] Comment on above: Order Comment: Name Collection Type:: Clean-Voided Midstream Performed By: #### U HCG, UA, URDS #### [address] Leukocyte esterase Test strip Ql (U) Negative Normal Negative [facility] Comment on above: Order Comment: Name Collection Type:: Clean-Voided Midstream Performed By: #### U HCG, UA, URDS #### [address] Nitrite,Urine Negative Normal Negative [facility] Comment on above: Order Comment: Name Collection Type:: Clean-Voided Midstream Performed By: #### U HCG, UA, URDS #### [address] Occult Blood,Urine Negative Normal Negative [facility] Comment on above: Order Comment: Name Collection Type:: Clean-Voided Midstream Performed By: #### U HCG, UA, URDS #### [address] pH (U) 6.5 [pH] Normal 5.0-9.0 [facility] Comment on above: Order Comment: Name Collection Type:: Clean-Voided Midstream Performed By: #### U HCG, UA, URDS #### [address] Protein,Urine Negative Normal Negative [facility] Comment on above: Order Comment: Name Collection Type:: Clean-Voided Midstream Performed By: #### U HCG, UA, URDS #### [address] Specificy [place],Urine 1.012 Normal 1.001-1.030 [facility] Comment on above: Order Comment: Name Collection Type:: Clean-Voided Midstream Performed By: #### U HCG, UA, URDS #### [facility] [address] Urobilinogen,Urine 8 mg/dL High Normal [facility] Comment on above: Order Comment: Name Collection Type:: Clean-Voided Midstream Performed By: #### U HCG, UA, URDS #### [facility] [address] Urobilinogen Test strip (U) [Mass/Vol]Ordered By: Ari Aguero on 04-28-2024 Urobilinogen (U) [Mass/Vol] Urobilinogen [Mass/volume] in Urine by Test strip High Normal [facility] pH Test strip (U)Ordered By: Ari Aguero on 04-28-2024 pH (U) pH of Urine by Test strip 5.0-9.0 [facility] INFLUENZA A/B RAPID MOLECULA Bhavik 03-05-2024 Influenza A, Molecular Not detected Normal Not Detected [facility] Comment on above: Order Comment: This test utilizes isothermal nucleic amplification technology for the differential qualitative detection of influenza A and influenza B viral nucleic acids. Performed By: #### F LUABM #### U [facility] (DEFAULT) [address] [address] Influenza B, Molecular Not detected Normal Not Detected [facility] Comment on above: Order Comment: This test utilizes isothermal nucleic amplification technology for the differential qualitative detection of influenza A and influenza B viral nucleic acids. Performed By: #### F LUABM #### U [facility] (DEFAULT) [address] [address] SARS-COV-2 RAPIDon SARS-CoV-2 (COVID-19) RNA MOISES+probe Ql (Unsp spec) Not detected Normal NOT DETECTED, INVALID [facility] Comment on above: Order Comment: Use a kiko, foam, polyester, or flocked swab to collect a nasal or nasopharyngeal specimen. After collection, place in a clean, plastic screw cap vial, cap tightly and label with patient information. Transport double bagged in biohazard bag at room temperature. Must be received within 60 minutes of collection. Collection must be done while wearing N-95 mask, eye protection, gown, and gloves. Result Comment: [facility] Negative results do not preclude SARS-CoV-2 infection and should not be used as the sole basis for treatment or other patient management decisions. Optimum specimen types and timing for peak viral levels during infections caused by SARS-CoV-2 has not been determined. The possibility of a false negative result should especially be considered if the patient's recent exposures or clinical presentation suggest that SARS-CoV-2 infection is probable, and diagnostic tests for other causes of illness (e.g., other respiratory illness) are negative. Collection of a new specimen and re-testing may be necessary if the patient is critically ill or clinically deteriorating. This test was performed using isothermal nucleic acid amplification technology for the qualitative detection of SARS-CoV-2 nucleic acid. Performed By: #### L [id number] #### [facility] ([facility]) [address] [place] [address] XR CHEST PA AND LATERAL 2 EWSon 03-05-2024 XR CHEST PA AND LATERAL 2 VIEWS EXAM: XR CHEST PA AND LATERAL 2 VIEWS, 03/05/2024 11:30 AM COMPARISON: No prior studies available for comparison. CLINICAL INDICATIONS: cough RELEVANT CLINICAL HISTORY: FINDINGS: Implanted Devices: None Lungs: Bilateral lower lobe airspace opacities. Pleural Spaces: No pleural effusion. No pneumothorax. Mediastinum and Kiersten: Normal Cardiac silhouette and great vessels: Normal heart size. Unremarkable aorta. Chest Wall: Normal IMPRESSION: Bilateral lower lobe airspace opacities, consistent with multifocal pneumonia the appropriate clinical setting. I personally viewed and interpreted these images and I have reviewed and approved this report. Normal [facility] General Message Officeon [facility] General Message Office --- --- --- --- --- --- --- --- --- From: Alejandro Bhardwaj To: LYLE BAILEY Sent: 01/14/24 02:30:37 AM EST Subject: Discharge Summary Ready to View A summary regarding your recent visit is available in the Documents section of your health record. Normal [facility] Inpatient Clinical Summaryon 01-13-2024 Inpatient Clinical Summary Inpatient Clinical Summary [address] [address] Clinical Summary Person Information: Name: LYLE BAILEY Age: 34 Years : 1990 Sex: Female PCP: Birgit Aiken MD Marital Status: Single Race: White Ethnicity: Non- or Language: Brazilian Visit Id: Visit Reason: Suicidal ideation; Alcohol intoxication; Psychiatric screening exam; psych Speciality: Acuity: Enc Type: Inpatient Med Service: Medical Arrival: 01/11/2024 09:48:50 Discharge: Dispo Type: Admitted as IP to this Hosp Address: [address] [place] [id number] Provider Notes: Diagnosis: 1:Acute alcoholic intoxication in alcoholism; 2:Suicidal ideation; 3:History of substance use; 4:Elevated liver enzymes; 5: of parent; 6:Bipolar depression Problems Active UTI (urinary tract infection), uncomplicated BMI 29.0-29.9,adult Dysuria STD exposure Overweight Sore throat Hyperhidrosis History of drug abuse Alcohol abuse Bipolar depression Lower extremity neuropathy Smoker Hepatitis B Hepatitis C Smoking Status: Current Every Day Smoker Functional Status: Sensory Deficits: History of Falls: Mobility Assistance Prior to Admission: ADLs: Moderate assistance Current Level of Assistance for Self-Care/Mobility: Cognitive Status: Oriented x 3 Allergies codeine () SEROquel (Swelling) Vistaril (Palpitations) Measurements: Height: 157 cm Weight: 80.6 kg Blood Pressure: 158 mmHg / 109 mmHg BMI: 31.2 kg/m2 Procedures No Procedures Documented Immunizations No Immunizations Documented This Visit Final Med List: acetaminophen (acetaminophen 325 mg Tab) 2 Tablets By Mouth every 6 hours as needed Pain. Care Team Members: Attending Physician: Pavel Ortega DO Consulting Physician: Referring Physician: Follow up: With: Address: When: AikenBirgit sanchez MD, FAM [address] [place] [address] 01/15/2024 11:00 AM Comments: Call for followup appointment With: Address: When: [facility] Patient Education Information: Alcohol Misuse and Dependence Information, Adult; Finding Treatment for Addiction Normal [facility] Inpatient Patient Summaryon 01-13-2024 Inpatient Patient Summary Inpatient Patient Summary LYLE BAILEY :1990 Visit Date:01/11/2024 Inpatient Discharge Instructions Your Care Team Admitting Physician - Pavel Ortega DO Reason for Your Visit Etoh intoxication and suicidal ideation Your Diagnosis Acute alcoholic intoxication in alcoholism Suicidal ideation History of substance use Elevated liver enzymes of parent Bipolar depression Alcohol intoxication Psychiatric screening exam Suicidal ideation Tests Performed Path. Review -- Results Pending -- Please visit your patient portal for your results or contact your primary care physician. This Is Your Medications List busPIRone (busPIRone 15 mg Tab) fluoxetine (FLUoxetine 10 mg Cap) folic acid (folic acid 1 mg Tab) gabapentin (gabapentin 800 mg Tab) multivitamin (Multi Vitamins oral tablet) propranolol (propranolol 10 mg Tab) topiramate (topiramate 25 mg Tab) ziprasidone (ziprasidone 20 mg Cap) [Image Removed: STOP]Stop taking these medications clonidine (cloNIDine 0.1 mg tab) paliperidone (Invega 3 mg oral tablet, extended release) Procedure History None. Discharge Vitals Temperature (Axillary) 36.8 ???C Heart Rate (Monitored) 65 Respiratory Rate 15 Blood Pressure 158/109 Weight 80.6 kg What to do next Instructions From Your Doctor Event Name Event Result Pending Diagnostic Test Results None Discharge Instructions Please return to ER if symptoms change or worsen. Please use [employer] as resource. Please make sure you follow-up at home with outpatient rehab. Lease follow-up with psychiatrist as instructed. New Follow Up Appointments after Discharge Follow Up with Birgit Aiken MD, FAM When: 01/15/2024 11:00 AM EST Comments: Call for followup appointment Where: [address] [place] [address]- Follow Up with Yessenia SINGLETARY, AMBER Potter, MED When: Within 2 to 4 weeks Comments: Call for followup appointment Where: [address], [address] [place] [phone] Follow Up with [facility] When: Where: Medications What How Much When Instructions Next Dose Changed fluoxetine (FLUoxetine 10 mg Cap) 1 Capsules By Mouth Every day 01/12 as ordered Changed gabapentin (gabapentin 800 mg Tab) 1 Tablets By Mouth 3 times a day 01/12 at 2PM Changed multivitamin (Multi Vitamins oral tablet) 1 Tablets By Mouth Every day 01/13 at 9AM Changed propranolol (propranolol 10 mg Tab) 1 Tablets By Mouth Every day 01/12 as ordered Unchanged busPIRone (busPIRone 15 mg Tab) 1 Tablets By Mouth 2 times a day 01/12 as ordered Unchanged folic acid (folic acid 1 mg Tab) 1 Tablets By Mouth Every day 01/13 at 9AM Unchanged topiramate (topiramate 25 mg Tab) 1 Tablets By Mouth Every day 01/12 as ordered Unchanged ziprasidone (ziprasidone 20 mg Cap) 1 Capsules By Mouth 2 times a day 01/12 as ordered What How Much When Comments Stop Taking clonidine (cloNIDine 0.1 mg tab) 1 Tablets By Mouth 2 times a day Stop Taking paliperidone (Invega 3 mg oral tablet, extended release) 1 Tablets By Mouth At bedtime Test Results CBC BMP WBC: 2.8 E9/L Low (01/12/24 06:03:00) Glucose Lvl: 106 mg/dL (01/11/24 10:12:00) RBC: 3.8 E12/L Low (01/12/24 06:03:00) BUN: 5 mg/dL (01/11/24 10:12:00) HGB: 12.7 gm/dL (01/12/24 06:03:00) Creatinine: 0.5 mg/dL (01/11/24 10:12:00) Hct: 36.7 % (01/12/24 06:03:00) BUN/Creat Ratio: 10 (01/11/24 10:12:00) MCV: 97.4 fL (01/12/24 06:03:00) Sodium Lvl: 139 mmol/L (01/12/24 06:03:00) MCH: 33.7 pg (01/12/24 06:03:00) Potassium Lvl: 3.8 mmol/L (01/12/24 06:03:00) MCHC: 34.6 gm/dL (01/12/24 06:03:00) Chloride: 106 mmol/L (01/12/24 06:03:00) RDW: 14.5 % High (01/12/24 06:03:00) CO2: 29 mmol/L (01/12/24 06:03:00) Platelet: 91 E9/L Low (01/12/24 06:03:00) AGAP: 8 mEq/L (01/12/24 06:03:00) MPV: 8.2 fL (01/12/24 06:03:00) Calcium Lvl: 8.2 mg/dL Low (01/11/24 10:12:00) Allergies SEROquel (Swelling) Vistaril (Palpitations) codeine (Redness) Problems Ongoing - Any problem that you are currently receiving treatment for. Alcohol abuse Bipolar depression BMI 29.0-29.9,adult Dysuria Hepatitis B Hepatitis C History of drug abuse Hyperhidrosis Lower extremity neuropathy Overweight Smoker Sore throat STD exposure UTI (urinary tract infection), uncomplicated Historical - Any problem that you are no longer receiving treatment for. Group B streptococcus Smoker.. Yeast vaginitis Education Materials Alcohol Misuse and Dependence Information, Adult Alcohol is a widely available drug and people choose to drink alcohol in different amounts. Alcohol misuse and dependence can have a negative effect on your life. Alcohol misuse is when you use alcohol too much or too often. You may have a hard time setting a limit on the amount you drink. Alcohol dependence is when you use alcohol consistently for a (more content not included)... Normal [facility] Inpatient Patient Summary Inpatient Patient Summary LYLE BAILEY Viktor :1990 Visit Date:01/11/2024 Inpatient Discharge Instructions Your Care Team Admitting Physician - Pavel Ortega DO Reason for Your Visit Etoh intoxication and suicidal ideation Your Diagnosis Acute alcoholic intoxication in alcoholism Suicidal ideation History of substance use Elevated liver enzymes of parent Bipolar depression Alcohol intoxication Psychiatric screening exam Suicidal ideation Tests Performed Path. Review -- Results Pending -- Please visit your patient portal for your results or contact your primary care physician. This Is Your Medications List acetaminophen (acetaminophen 325 mg Tab) [Image Removed: STOP]Stop taking these medications clonidine (cloNIDine 0.1 mg tab) fluoxetine (Prozac) gabapentin (gabapentin 800 mg Tab) gabapentin (gabapentin 800 mg Tab) multivitamin (Therapeutic Multiple Vitamin Tab) paliperidone (Invega 3 mg oral tablet, extended release) propranolol Procedure History None. Discharge Vitals Temperature (Axillary) 36.8 ???C Heart Rate (Monitored) 65 Respiratory Rate 15 Blood Pressure 158/109 Weight 80.6 kg What to do next Instructions From Your Doctor Event Name Event Result Pending Diagnostic Test Results None Discharge Instructions Please return to ER if symptoms change or worsen. Please use [employer] as resource. Please make sure you follow-up at home with outpatient rehab. Lease follow-up with psychiatrist as instructed. New Follow Up Appointments after Discharge Follow Up with Attila SINGLETARY, SARA Fuller When: 01/15/2024 11:00 AM EST Comments: Call for followup appointment Where: [address]. [facility] [[email or web address] [address] [place] [address]- Follow Up with [facility] When: Where: Medications What How Much When Instructions Next Dose Unchanged acetaminophen (acetaminophen 325 mg Tab) 2 Tablets By Mouth Every 6 hours as needed for Pain 01/12 as needed What How Much When Why Comments Stop Taking clonidine (cloNIDine 0.1 mg tab) 1 Tablets By Mouth 2 times a day Stop Taking fluoxetine (Prozac) Stop Taking gabapentin (gabapentin 800 mg Tab) 1 Tablets By Mouth 3 times a day Lower extremity neuropathy 30 day supply Stop Taking gabapentin (gabapentin 800 mg Tab) 1 Tablets By Mouth 3 times a day Stop Taking multivitamin (Therapeutic Multiple Vitamin Tab) By Mouth Every day Stop Taking paliperidone (Invega 3 mg oral tablet, extended release) 1 Tablets By Mouth At bedtime Stop Taking propranolol 40 Milligram 2 times a day Test Results CBC BMP WBC: 2.8 E9/L Low (01/12/24 06:03:00) Glucose Lvl: 106 mg/dL (01/11/24 10:12:00) RBC: 3.8 E12/L Low (01/12/24 06:03:00) BUN: 5 mg/dL (01/11/24 10:12:00) HGB: 12.7 gm/dL (01/12/24 06:03:00) Creatinine: 0.5 mg/dL (01/11/24 10:12:00) Hct: 36.7 % (01/12/24 06:03:00) BUN/Creat Ratio: 10 (01/11/24 10:12:00) MCV: 97.4 fL (01/12/24 06:03:00) Sodium Lvl: 139 mmol/L (01/12/24 06:03:00) MCH: 33.7 pg (01/12/24 06:03:00) Potassium Lvl: 3.8 mmol/L (01/12/24 06:03:00) MCHC: 34.6 gm/dL (01/12/24 06:03:00) Chloride: 106 mmol/L (01/12/24 06:03:00) RDW: 14.5 % High (01/12/24 06:03:00) CO2: 29 mmol/L (01/12/24 06:03:00) Platelet: 91 E9/L Low (01/12/24 06:03:00) AGAP: 8 mEq/L (01/12/24 06:03:00) MPV: 8.2 fL (01/12/24 06:03:00) Calcium Lvl: 8.2 mg/dL Low (01/11/24 10:12:00) Allergies SEROquel (Swelling) Vistaril (Palpitations) codeine (Redness) Problems Ongoing - Any problem that you are currently receiving treatment for. Alcohol abuse Bipolar depression BMI 29.0-29.9,adult Dysuria Hepatitis B Hepatitis C History of drug abuse Hyperhidrosis Lower extremity neuropathy Overweight Smoker Sore throat STD exposure UTI (urinary tract infection), uncomplicated Historical - Any problem that you are no longer receiving treatment for. Group B streptococcus Smoker.. Yeast vaginitis Education Materials Alcohol Misuse and Dependence Information, Adult Alcohol is a widely available drug and people choose to drink alcohol in different amounts. Alcohol misuse and dependence can have a negative effect on your life. Alcohol misuse is when you use alcohol too much or too often. You may have a hard time setting a limit on the amount you drink. Alcohol dependence is when you use alcohol consistently for a period of time, and your body changes as a result. Alcohol dependence can make it hard for you to stop drinking because you may start to feel sick or different when you do not drink alcohol. These symptoms are known as withdrawal. People who drink alcohol very often and in large amounts, may develop what is called an alcohol use disorder. How can alcohol misuse and dependence affect me? Drinking too much can lead to addiction. You may feel like you need alcohol to function normally. You may drink alcohol before (more content not included)... Normal [facility] Inpatient Patient Summary Inpatient Patient Summary [address] [address] Patient Discharge Instructions PERSON INFORMATION Name: LYLE BAILEY Date of : 1990 Current Date: 01/13/2024 10:59:07 PHYSICIANS Admitting Physician: Pavel Ortega DO Primary Care Physician: Birgit Aiken MD PCP Comment: Discharge Diagnosis: 1:Acute alcoholic intoxication in alcoholism; 2:Suicidal ideation; 3:History of substance use; 4:Elevated liver enzymes; 5: of parent; 6:Bipolar depression Condition at Discharge: Improved LYLE BAILEY has been given the following list of follow-up instructions, prescriptions, and patient education materials: PATIENT FOLLOW-UP INFORMATION Diet: Discharge Activity: Discharge Restrictions: Wound Care Instructions: Remove Your Dressing In Days Call Your Doctor For: IF UNABLE TO CONTACT YOUR PHYSICIAN AND YOU FEEL IT IS AN EMERGENCY, GO TO THE NEAREST EMERGENCY ROOM OR CALL 911 Home Treatment: Devices/Equipment: None Special Services: Additional Instructions: Please return to ER if symptoms change or worsen. Please use [employer] as resource. Please make sure you follow-up at home with outpatient rehab. Lease follow-up with psychiatrist as instructed. Primary Care Physician to provide the following pending test results: None Follow up: With: Address: When: Birgit Aiken MD, [facility] [address] [place] [address] 01/15/2024 11:00 AM Comments: Call for followup appointment With: Address: When: letmary espinoza real In the event that this physician does not participate in your insurance network, please consult with your insurance company to find a nearby participating provider. Comment: LEO Gastelum DALLAS T, have received the attached patient education materials/instructions and have verbalized understanding: Patient Signature Date Clinican/Nurse Signature Date HERE ARE THE MEDICATION CHANGES THAT OCCURRED DURING YOUR HOSPITAL STAY Medications to Continue with No Changes Other Medications acetaminophen (acetaminophen 325 mg Tab) 2 Tablets By Mouth every 6 hours as needed Pain. Last Dose: _Next Dose: _ No Longer Take the Following Medications clonidine (cloNIDine 0.1 mg tab) 1 Tablets By Mouth 2 times a day. Refills: 0. fluoxetine (Prozac) gabapentin (gabapentin 800 mg Tab) 1 Tablets By Mouth 3 times a day. 30 day supply. Refills: 0. gabapentin (gabapentin 800 mg Tab) 1 Tablets By Mouth 3 times a day. multivitamin (Therapeutic Multiple Vitamin Tab) By Mouth every day. paliperidone (Invega 3 mg oral tablet, extended release) 1 Tablets By Mouth at bedtime. propranolol 40 Milligram 2 times a day. Comment: MEDICATION LIST PROVIDED FOR YOU IS A LIST OF YOUR CURRENT MEDICATIONS. PLEASE CARRY THIS WITH YOU AT ALL TIMES. acetaminophen (acetaminophen 325 mg Tab) 2 Tablets By Mouth every 6 hours as needed Pain. Pharmacy Information: [facility] Comment: PATIENT EDUCATION INFORMATION Instructions: Alcohol Misuse and Dependence Information, Adult Alcohol is a widely available drug and people choose to drink alcohol in different amounts. Alcohol misuse and dependence can have a negative effect on your life. Alcohol misuse is when you use alcohol too much or too often. You may have a hard time setting a limit on the amount you drink. Alcohol dependence is when you use alcohol consistently for a period of time, and your body changes as a result. Alcohol dependence can make it hard for you to stop drinking because you may start to feel sick or different when you do not drink alcohol. These symptoms are known as withdrawal. People who drink alcohol very often and in large amounts, may develop what is called an alcohol use disorder. How can alcohol misuse and dependence affect me? Drinking too much can lead to addiction. You may feel like you need alcohol to function normally. You may drink alcohol before work in the morning, during the day, or as soon as you get home from work in the evening. These actions can result in: ??? Poor work performance. ??? Job loss. ??? Financial problems. ??? Car crashes or criminal charges from driving after drinking alcohol. ??? Problems in your relationships with friends and family. ??? Losing the trust and respect of coworkers, friends, and family. Drinking heavily over a long period of time can permanently damage your body and brain, and can cause lifelong health issues, such as: ??? Damage to your liver or pancreas. ??? Heart problems, high blood pressure, or stroke. ??? Certain cancers. ??? Decreased ability to fight infections. ??? Brain or nerve damage. ??? Depression. (more content not included)... Normal [facility] Interdisciplinary Note - Alonso e Manageron 01-13-2024 Interdisciplinary Note - Landscape Photographer Interdisciplinary Note - Landscape Photographer This SW was contacted this morning regarding an update on the status of patient with [facility]. SW had not received an update so tc was placed to [facility] Line and SW spoke with Lata. Per Lata, patient was evaluated in person yesterday and a safety plan was put in place. She states that the staff that met with patient reported that patient's mother was agreeable to picking patient up from [facility] at [place] and returning home with her. This SW will round with patient today and determine if this remains her plan. Patient is cleared by [facility] so there is no need for a sitter at this time. This SW rounded with patient this morning and she explained that she was ready for d/c home. Patient states that she and her mom have talked and the plan is for her to return home to her mother's house, get some things around, run some errands, say goodbye to her 11 year old son and then go to a drug and alcohol rehab program. Patient was provided with a list of treatment options and started reviewing this immediately. She also called her mom on speaker phone so that she could talk to this SW. Patient's mom is in agreement with these plans as well and will transport patient home. After her mom hung up, patient voiced that she really wanted to look into the new treatment center in [place]. SW tried to google this but didn't find anything so patient called [facility] herself and go the information. The new facility is the [id number] and it is a temporary crisis housing program. They have a doctor, RN, and mental health providers onsite. Patient called and completed an intake evaluation; she was approved and will go there later this evening once she has run all the errands and picked up the needed items. Normal [facility] Comment on above: Result Comment: Elec tronically Signed By: Miranda Bales\.br\Date and Time Signed: 01/13/24 12:56 EST Interdisciplinary Note - Soc ial Workeron 01-13-2024 Interdisciplinary Note - Pet Care Technician Interdisciplinary Note - Pet Care Technician Patient planning to d/c home and then go to rehab. Patient was provided with a list of treatment options and started reviewing this immediately. She also called her mom on speaker phone so that she could talk to this SW. Patient's mom is in agreement with these plans as well and will transport patient home. After her mom hung up, patient voiced that she really wanted to look into the new treatment center in [place]. SW tried to google this but didn't find anything so patient called [facility] herself and go the information. The new facility is the [place] [phone] and it is a temporary crisis housing program. They have a doctor, RN, and mental health providers onsite. Patient called and completed an intake evaluation; she was approved and will go there later this evening once she has run all the errands and picked up the needed items. W will remain available. Normal [facility] CBC w/Indiceson 01-12-2024 Erythrocyte distribution width (RBC) [Ratio] 14.5 % High 10.9-14.2 [facility] Comment on above: Performed By: #### 2 [id number] #### [facility] [address] [place] [address] Hematocrit (Bld) [Volume fraction] 36.7 % Normal 34.0-46.0 [facility] Comment on above: Performed By: #### 2 [id number] #### [facility] [address] [place] [address] Hemoglobin (Bld) [Mass/Vol] 12.7 g/dL Normal 12.0-16.0 [facility] Comment on above: Performed By: #### 2 [id number] #### [facility] [address] [place] [address] MCH (RBC) [Entitic mass] 33.7 pg Normal 27.0-34.0 [facility] Comment on above: Performed By: #### 2 [id number] #### [facility] [address] [place] [address] MCHC (RBC) [Mass/Vol] 34.6 g/dL Normal 31.4-36.0 [facility] Comment on above: Performed By: #### 2 [id number] #### [facility] [address] [place] [address] MCV (RBC) [Entitic vol] 97.4 fL Normal 80.0-100.0 [facility] Comment on above: Performed By: #### 2 [id number] #### [facility] [address] [place] [address] Platelet mean volume (Bld) [Entitic vol] 8.2 fL Normal 6.4-10.8 [facility] Comment on above: Performed By: #### 2 [id number] #### [facility] [address] [place] [address] Platelets (Bld) [#/Vol] 91.0 E9/L Low 150.0-500.0 [facility] Comment on above: Performed By: #### 2 [id number] #### [facility] [address] [place] [address] RBC (Bld) [#/Vol] 3.8 E12/L Low 4.3-5.9 [facility] Comment on above: Performed By: #### 2 [id number] #### [facility] [address] [place] [address] RBC size Nom (Bld) NORMAL Invalid Interpretation Code [facility] Comment on above: Performed By: #### 2 [id number] #### [facility] [address] [place] [address] WBC corrected for nucl RBC Auto (Bld) [#/Vol] 2.8 E9/L Low 4.0-11.0 [facility] Comment on above: Performed By: #### 2 [id number] #### [facility] [address] [place] [address] CHEMISTRYOrdered By: SYSTEM SYSTEM on 01-12-2024 Ethanol Lvl mg/dL Normal <=11mg/dL [facility] Albumin [Mass/Vol] 3.2 g/dL Low 3.3 - 5.0 gm/dL [facility] Albumin/Globulin [Mass ratio] 1.0 {ratio} Low 1.1 - 2.2 [facility] ALP [Catalytic activity/Vol] 113 [iU]/d High 21 - 98 Int._Unit/L [facility] ALT No additional P-5'-P [Catalytic activity/Vol] 70 [iU]/d High 6 - 46 Int._Unit/L [facility] Anion gap [Moles/Vol] 8 mmol/L Normal 6 - 16 mEq/L R emisol Chem AST [Catalytic activity/Vol] 165 [iU]/d High 5 - 43 Int._Unit/L [facility] Bilirubin [Mass/Vol] 0.6 mg/dL Normal 0.0 - 1 .1 mg/dL [facility] Bilirubin.direct [Mass/Vol] 0.2 mg/dL Normal 0.0 - 0.4 mg/dL [facility] Bilirubin.indirect [Mass or moles/Vol] 0.4 mg/dL Normal 0.1 - 0.9 mg/dL [facility] Chloride [Moles/Vol] 106 mmol/L Normal 101 - 1 11 mmol/L [facility] CO2 [Moles/Vol] 29 mmol/L Normal 21 - 31 mmol/L [facility] Globulin (S) [Mass/Vol] 3.3 g/dL Normal 1.4 - 4.0 gm/dL [facility] Potassium [Moles/Vol] 3.8 mmol/L Normal 3.5 - 5.3 mmol/L [facility] Protein [Mass/Vol] 6.5 g/dL Normal 6.0 - 7.8 gm/dL [facility] Sodium [Moles/Vol] 139 mmol/L Normal 135 - 145 mmol/L [facility] Ethanolon 01-12-2024 Ethanol Lvl <10 Normal <=11 [facility] Comment on above: Performed By: #### 2 [id number] ####[facility] [id number] [place] [address] HEMATOLOGYOrdered By: SYSTEM SYSTEM on 01-12-2024 Erythrocyte distribution width (RBC) [Ratio] 14.5 % High 10.9 - 14.2 % [facility]e Hematocrit (Bld) [Volume fraction] 36.7 % Normal 34.0 - 46.0 % [facility]e Hemoglobin (Bld) [Mass/Vol] 12.7 g/dL Normal 12.0 - 16.0 gm/dL [facility]e MCH (RBC) [Entitic mass] 33.7 pg Normal 27.0 - 34.0 pg Rem[facility] Heme MCHC (RBC) [Mass/Vol] 34.6 g/dL Normal 31.4 - 36.0 gm/dL [facility]e MCV (RBC) [Entitic vol] 97.4 fL Normal 80.0 - 100.0 fL [facility] Platelet mean volume (Bld) [Entitic vol] 8.2 fL Normal 6.4 - 10.8 fL [facility]e Platelets (Bld) [#/Vol] 91.0 E9/L Low 150.0 - 500.0 E9/L Rem[facility] Heme RBC (Bld) [#/Vol] 3.8 E12/L Low 4.3 - 5.9 E12/L [facility]e RBC size Nom (Bld) NORMAL *NA* (01/12/24 6:03 AM) Invalid Interpretation Code [facility] WBC corrected for nucl RBC Auto (Bld) [#/Vol] 2.8 E9/L Low 4.0 - 11.0 E9/L [facility] Hep Func Panelon 01-12-2024 Albumin [Mass/Vol] 3.2 g/dL Low 3.3-5.0 [facility] Comment on above: Performed By: #### 2 [id number] #### [facility] [address] [place] [address] Albumin/Globulin (S) [Mass conc ratio] 1.0 Low 1.1-2.2 [facility] Comment on above: Performed By: #### 2 [id number] #### [facility] [address] [place] [address] ALP [Catalytic activity/Vol] 113 Int._Unit/L High 21-98 [facility] Comment on above: Performed By: #### 2 [id number] #### [facility] [address] [place] [address] ALT No additional P-5'-P [Catalytic activity/Vol] 70 Int._Unit/L High 6-46 [facility] Comment on above: Performed By: #### 2 [id number] #### [facility] [address] [place] [address] AST [Catalytic activity/Vol] 165 Int._Unit/L High 5-43 [facility] Comment on above: Performed By: #### 2 [id number] #### [facility] [address] [place] [address] Bilirubin [Mass/Vol] 0.6 mg/dL Normal 0.0-1.1 [facility] Comment on above: Performed By: #### 2 [id number] #### [facility] [address] [place] [address] Bilirubin.direct [Mass/Vol] 0.2 mg/dL Normal 0.0-0.4 [facility] Comment on above: Performed By: #### 2 [id number] #### [facility] [address] [place] [address] Bilirubin.indirect [Mass or moles/Vol] 0.4 mg/dL Normal 0.1-0.9 [facility] Comment on above: Performed By: #### 2 [id number] #### [facility] [address] [place] [address] Globulin (S) [Mass/Vol] 3.3 g/dL Normal 1.4-4.0 [facility] Comment on above: Performed By: #### 2 [id number] #### [facility] [address] [place] [address] Protein [Mass/Vol] 6.5 g/dL Normal 6.0-7.8 [facility] Comment on above: Performed By: #### 2 [id number] #### [facility] [address] [place] [address] Lyteson 01-12-2024 Anion gap [Moles/Vol] 8 mmol/L Normal 6-16 [facility] Comment on above: Performed By: #### 2 [id number] #### [facility] [address] [place] [address] Chloride [Moles/Vol] 106 mmol/L Normal 101-111 [facility] Comment on above: Performed By: #### 2 [id number] #### [facility] [address] [place] [address] CO2 [Moles/Vol] 29 mmol/L Normal 21-31 [facility] Comment on above: Performed By: #### 2 [id number] #### [facility] [address] [place] [address] Potassium [Moles/Vol] 3.8 mmol/L Normal 3.5-5.3 [facility] Comment on above: Performed By: #### 2 [id number] #### [facility] [address] [place] [address] Sodium [Moles/Vol] 139 mmol/L Normal 135-145 [facility] Comment on above: Performed By: #### 2 [id number] #### [facility] [address] [place] [address] B hCG Qualon 01-11-2024 Beta HCG ( test) Ql Negative Normal [facility] Comment on above: Performed By: #### 2 [id number] #### [facility] [address] [place] [address] CBC w/ Auto Diffon 4 Basophils (Bld) [#/Vol] 0.1 E9/L Normal 0.0-0.2 [facility] Comment on above: Performed By: #### 2 [id number] #### [facility] [address] [place] [address] Eosinophils (Bld) [#/Vol] 0.1 E9/L Normal 0.0-0.5 [facility] Comment on above: Performed By: #### 2 [id number] #### [facility] [address] [place] [address] Eosinophils/100 WBC (Bld) 1.0 % Normal 0.0-8.0 [facility] Comment on above: Performed By: #### 2 [id number] #### [facility] [address] [place] [address] Erythrocyte distribution width (RBC) [Ratio] 14.7 % High 10.9-14.2 [facility] Comment on above: Performed By: #### 2 [id number] #### [facility] [address] [place] [address] Hematocrit (Bld) [Volume fraction] 38.7 % Normal 34.0-46.0 [facility] Comment on above: Performed By: #### 2 [id number] #### [facility] [address] [place] [address] Hemoglobin (Bld) [Mass/Vol] 13.5 g/dL Normal 12.0-16.0 [facility] Comment on above: Performed By: #### 2 [id number] #### [facility] [address] [place] [address] Lymphocytes (Bld) [#/Vol] 4.0 E9/L Normal 1.0-4.0 [facility] Comment on above: Performed By: #### 2 [id number] #### [facility] [address] [place] [address] Lymphocytes/100 WBC (Bld) 30.0 % Normal 14.0-50.0 [facility] Comment on above: Performed By: #### 2 [id number] #### [facility] [address] [place] [address] MCH (RBC) [Entitic mass] 34.2 pg High 27.0-34.0 [facility] Comment on above: Performed By: #### 2 [id number] #### [facility] [address] [place] [address] MCHC (RBC) [Mass/Vol] 34.9 g/dL Normal 31.4-36.0 [facility] Comment on above: Performed By: #### 2 [id number] #### [facility] [address] [place] [address] MCV (RBC) [Entitic vol] 97.9 fL Normal 80.0-100.0 [facility] Comment on above: Performed By: #### 2 332147 #### [facility] [address] [place] [address] Monocytes (Bld) [#/Vol] 0.4 E9/L Normal 0.2-1.0 [facility] Comment on above: Performed By: #### 2 [id number] #### [facility] [address] [place] [address] Neutrophils (Bld) [#/Vol] 1.8 E9/L Invalid Interpretation Code [facility] Comment on above: Performed By: #### 2 [id number] #### [facility] [address] [place] [address] Platelet mean volume (Bld) [Entitic vol] 7.9 fL Normal 6.4-10.8 [facility] Comment on above: Performed By: #### 2 [id number] #### [facility] [address] [place] [address] Platelets (Bld) [#/Vol] 136.0 E9/L Low 150.0-500.0 [facility] Comment on above: Performed By: #### 2 [id number] #### [facility] [address] [place] [address] RBC (Bld) [#/Vol] 4.0 E12/L Low 4.3-5.9 [facility] Comment on above: Performed By: #### 2 [id number] #### [facility] [address] [place] [address] RBC size Nom (Bld) NORMAL Invalid Interpretation Code [facility] Comment on above: Performed By: #### 2 [id number] #### [facility] [address] [place] [address] Segmented neutrophils/100 WBC (Bld) 29.0 % Low 36.0-75.0 [facility] Comment on above: Performed By: #### 2 [id number] #### [facility] [address] [place] [address] Variant lymphocytes/100 WBC (Bld) 33.0 % High 0.0-0.0 [facility] Comment on above: Performed By: #### 2 [id number] #### [facility] [address] [place] [address] WBC corrected for nucl RBC Auto (Bld) [#/Vol] 6.3 E9/L Normal 4.0-11.0 [facility] Comment on above: Performed By: #### 2 [id number] #### [facility] [address] [place] [address] CHEMISTRYOrdered By: SYSTEM SYSTEM on 01-11-2024 Amphetamines Screen method >1000 ng/mL Ql (U) NEGATIVE 8 (01/11/24 12:58 PM) Normal NEGATIVE [facility] Comment on above: Interpretive Data: N egative Cutoff: <1000 ng/mL Barbiturates Screen Ql (U) NEGATIVE 9 (01/11/24 12:58 PM) Normal NEGATIVE [facility] Comment on above: Interpretive Data: N egative Cutoff: <200 ng/mL Benzodiazepines Ql (U) POSITIVE 1, 2 *ABN* (01/11/24 12:58 PM) Invalid Interpretation Code NEGATIVE [facility] Comment on above: Result Comment: Crit ical Result Verified by Repeat Analysis Called to ER/Leann Ling Interpretive Data: N egative Cutoff: <200 ng/mL Cannabinoids Screen Ql (U) NEGATIVE 7 (01/11/24 12:58 PM) Normal NEGATIVE [facility] Comment on above: Interpretive Data: N egative Cutoff: <50 ng/mL Cocaine Ql (U) NEGATIVE 3 (01/11/24 12:58 PM) Normal NEGATIVE [facility] Comment on above: Interpretive Data: N egative Cutoff: <300 ng/mL Opiates Screen Ql (U) NEGATIVE 5 (01/11/24 12:58 PM) Normal NEGATIVE [facility] Comment on above: Interpretive Data: N egative Cutoff: <300 ng/mL Phencyclidine Screen method >25 ng/mL Ql (U) NEGATIVE 6 (01/11/24 12:58 PM) Normal NEGATIVE [facility] Comment on above: Interpretive Data: N egative Cutoff: <25 ng/mL These drug screen results are to be used for medical (i.e., treatment) purposes only. Unconfirmed drug screening results must not be used for non-medical purposes (e.g., employment testing, legal testing). U Fentanyl NEGATIVE 11 (01/11/24 12:58 PM) Normal NEGATIVE [facility] Comment on above: Interpretive Data: N egative Cutoff: <5 ng/mL These drug screen results are to be used for medical (i.e., treatment) purposes only. Unconfirmed drug screening results must not be used for non-medical purposes (e.g., employment testing, legal testing). Albumin [Mass/Vol] 3.6 g/dL Normal 3.3 - 5.0 gm/dL [facility] Albumin/Globulin [Mass ratio] 1.0 {ratio} Low 1.1 - 2.2 [facility] ALP [Catalytic activity/Vol] 114 [iU]/d High 21 - 98 Int._Unit/L [facility] Chem ALT No additional P-5'-P [Catalytic activity/Vol] 74 [iU]/d High 6 - 46 Int._Unit/L [facility] Chem Anion gap [Moles/Vol] 12 mmol/L Normal 6 - 16 mEq/L R emisol Chem AST [Catalytic activity/Vol] 156 [iU]/d High 5 - 43 Int._Unit/L [facility] Bilirubin [Mass/Vol] 0.5 mg/dL Normal 0.0 - 1 .1 mg/dL [facility] Calcium [Mass/Vol] 8.2 mg/dL Low 8.9 - 11. 1 mg/dL [facility] Chloride [Moles/Vol] 106 mmol/L Normal 101 - 1 11 mmol/L [facility] CO2 [Moles/Vol] 27 mmol/L Normal 21 - 31 mmol/L [facility] Creatinine [Mass/Vol] 0.5 mg/dL Normal 0.5 - 1.3 mg/dL [facility] eGFR 128 mL/min/1.73 m2 Normal >=59mL/mi n/1 .73 m2 [facility] Ethanol Lvl 510 mg/dL Invalid Interpretation Code <=11mg/dL [facility] Comment on above: Result Comment: Crit ical Result Verified by Repeat Analysis Critical Result [id number] Called to and read back by: MADELAINE BARRY at: 01/11/2024 10:56:12 by: Globulin (S) [Mass/Vol] 3.5 g/dL Normal 1.4 - 4.0 gm/dL [facility] Glucose [Mass/Vol] 106 mg/dL Normal 55 - 199 mg/dL [facility] Potassium [Moles/Vol] 3.6 mmol/L Normal 3.5 - 5.3 mmol/L [facility] Chem Protein [Mass/Vol] 7.1 g/dL Normal 6.0 - 7.8 gm/dL [facility] Sodium [Moles/Vol] 141 mmol/L Normal 135 - 145 mmol/L [facility] Chem Urea nitrogen [Mass/Vol] 5 mg/dL Normal 5 - 21 mg/dL Remisol Chem Urea nitrogen/Creatinine [Mass ratio] 10 mg/mg Normal 10 - 20 Remisol Chem CMPon 01-11-2024 Albumin [Mass/Vol] 3.6 g/dL Normal 3.3-5.0 [facility] Comment on above: Performed By: #### 2 [id number] #### [facility] [address] [place] [address] Albumin/Globulin (S) [Mass conc ratio] 1.0 Low 1.1-2.2 [facility] Comment on above: Performed By: #### 2 [id number] #### [facility] [address] [place] [address] ALP [Catalytic activity/Vol] 114 Int._Unit/L High 21-98 [facility] Comment on above: Performed By: #### 2 [id number] #### [facility] [address] [place] [address] ALT No additional P-5'-P [Catalytic activity/Vol] 74 Int._Unit/L High 6-46 [facility] Comment on above: Performed By: #### 2 [id number] #### [facility] [address] [place] [address] Anion gap [Moles/Vol] 12 mmol/L Normal 6-16 [facility] Comment on above: Performed By: #### 2 [id number] #### [facility] [address] [place] [address] AST [Catalytic activity/Vol] 156 Int._Unit/L High 5-43 [facility] Comment on above: Performed By: #### 2 [id number] #### [facility] [address] [place] [address] Bilirubin [Mass/Vol] 0.5 mg/dL Normal 0.0-1.1 [facility] Comment on above: Performed By: #### 2 [id number] #### [facility] [address] [place] [address] Calcium [Mass/Vol] 8.2 mg/dL Low 8.9-11.1 [facility] Comment on above: Performed By: #### 2 [id number] #### [facility] [address] [place] [address] Chloride [Moles/Vol] 106 mmol/L Normal 101-111 [facility] Comment on above: Performed By: #### 2 [id number] #### [facility] [address] [place] [address] CO2 [Moles/Vol] 27 mmol/L Normal 21-31 [facility] Comment on above: Performed By: #### 2 [id number] #### [facility] [address] [place] [address] Creatinine [Mass/Vol] 0.5 mg/dL Normal 0.5-1.3 [facility] Comment on above: Performed By: #### 2 [id number] #### [facility] [address] [place] [address] Globulin (S) [Mass/Vol] 3.5 g/dL Normal 1.4-4.0 [facility] Comment on above: Performed By: #### 2 [id number] #### [facility] [address] [place] [address] Glucose [Mass/Vol] 106 mg/dL Normal 55-199 [facility] Comment on above: Performed By: #### 2 [id number] #### [facility] [address] [place] [address] Potassium [Moles/Vol] 3.6 mmol/L Normal 3.5-5.3 [facility] Comment on above: Performed By: #### 2 [id number] #### [facility] [address] [place] [address] Protein [Mass/Vol] 7.1 g/dL Normal 6.0-7.8 [facility] Comment on above: Performed By: #### 2 [id number] #### [facility] [address] [place] [address] Sodium [Moles/Vol] 141 mmol/L Normal 135-145 [facility] Comment on above: Performed By: #### 2 [id number] #### [facility] [address] [place] [address] Urea nitrogen [Mass/Vol] 5 mg/dL Normal 5-21 [facility] Comment on above: Performed By: #### 2 [id number] #### [facility] [address] [place] [address] Urea nitrogen/Creatinine [Mass ratio] 10 No Units Normal 10-20 [facility] Comment on above: Performed By: #### 2 [id number] #### [facility] [address] [place] [address] ED Clinical Summaryon 2023 ED Clinical Summary ED Clinical Summary [address] [address] ED Clinical Summary Person Information Name: LYLE BAILEY [place] Age: 34 Years : 1990 Sex: Female Language: Brazilian PCP: Birgit Aiken MD Marital Status: Single Visit Id: Visit Reason: Suicidal ideation; Alcohol intoxication; Psychiatric screening exam; psych Speciality: Acuity: 2 Enc Type: Inpatient Med Service: Medical Arrival: 01/11/2024 09:48:50 Discharge: LOS: 000 03:57 Checkin: 01/11/2024 09:48:50 Checkout: 01/11/2024 13:45:42 Dispo Type: Admitted as IP to this [facility] EVENTS: Event Name Event Status Request Date/Time Start Date/Time Complete Date/Time Arrive Complete 01/11/2024 09:48:50 01/11/2024 09:48:50 01/11/2024 09:48:50 Document Home Meds Request 01/11/2024 09:48:50 Triage Complete 01/11/2024 09:48:50 01/11/2024 09:56:08 01/11/2024 09:56:08 Bed Assign Complete 01/11/2024 09:51:38 01/11/2024 09:51:38 01/11/2024 09:51:38 Dr Exam Complete 01/11/2024 09:51:38 01/11/2024 09:56:47 01/11/2024 09:56:47 RN Exam Complete 01/11/2024 09:51:38 01/11/2024 10:00:26 01/11/2024 10:00:26 Registration Complete 01/11/2024 09:56:47 01/11/2024 10:58:49 01/11/2024 10:58:49 Consult Request 01/11/2024 10:04:09 EKG Complete 01/11/2024 10:04:09 01/11/2024 10:20:06 Pending Labs Inlab 01/11/2024 10:04:09 Lab Inlab 01/11/2024 10:04:09 Urine Collect Inlab 01/11/2024 10:04:09 Patient Care Request 01/11/2024 10:04:09 Dr Exam Complete 01/11/2024 10:06:36 01/11/2024 10:06:36 01/11/2024 10:06:36 Pending Labs Complete 01/11/2024 10:16:16 01/11/2024 10:16:16 01/11/2024 10:42:50 Lab Complete 01/11/2024 10:16:16 01/11/2024 10:16:16 01/11/2024 10:42:50 Pending Labs Inlab 01/11/2024 10:54:12 01/11/2024 10:54:12 Reg Complete Request 01/11/2024 10:58:49 Reg Bed Request Complete 01/11/2024 10:58:49 01/11/2024 10:58:49 01/11/2024 10:58:49 Pending Labs Complete 01/11/2024 11:34:50 01/11/2024 11:34:50 01/11/2024 11:34:50 Consult Request 01/11/2024 13:00:43 Hospitalist Consult Request 01/11/2024 13:00:43 Meds Admin Complete 01/11/2024 13:07:27 01/11/2024 13:41:02 Admit Request 01/11/2024 13:10:19 Patient Care Request 01/11/2024 13:10:20 Patient Care Request 01/11/2024 13:10:20 Patient Care Request 01/11/2024 13:10:20 Patient Care Request 01/11/2024 13:10:21 Patient Care Request 01/11/2024 13:10:22 Patient Care Request 01/11/2024 13:10:22 Meds Admin Request 01/11/2024 13:15:58 Patient Care Request 01/11/2024 13:15:58 Patient Care Request 01/11/2024 13:17:16 Meds Admin Request 01/11/2024 13:17:16 Patient Care Request 01/11/2024 13:20:50 Inpatient Bed Ready Complete 01/11/2024 13:45:42 01/11/2024 13:45:42 01/11/2024 13:45:42 ADDRESS: [address] [place] [id number] PHYS DOC NOTES: MEDICAL INFORMATION: Prescriptions Given: [...] PATIENT EDUCATION INFORMATION: Instructions: Follow up: DIAGNOSIS: 1:Acute alcoholic intoxication in alcoholism; 2:Suicidal ideation; 3:History of substance use; 4:Elevated liver enzymes; 5: of parent; 6:Bipolar depression Normal [facility] ED Clinical Summary ED Clinical Summary [place] [address] ED Clinical Summary Person Information Name: LYLE BAILEY Faye/[facility] Age: 34 Years : 1990 Sex: Female Language: Brazilian PCP: Birgit Aiken MD Marital Status: Single Visit Id: Visit Reason: Suicidal ideation; Alcohol intoxication; Psychiatric screening exam; psych Speciality: Acuity: 2 Enc Type: Emergency Med Service: Emergency Arrival: 01/11/2024 09:48:50 Discharge: LOS: 000 02:49 Checkin: 01/11/2024 09:48:50 Checkout: Dispo Type: EVENTS: Event Name Event Status Request Date/Time Start Date/Time Complete Date/Time Arrive Complete 01/11/2024 09:48:50 01/11/2024 09:48:50 01/11/2024 09:48:50 Document Home Meds Request 01/11/2024 09:48:50 Triage Complete 01/11/2024 09:48:50 01/11/2024 09:56:08 01/11/2024 09:56:08 Bed Assign Complete 01/11/2024 09:51:38 01/11/2024 09:51:38 01/11/2024 09:51:38 Dr Exam Complete 01/11/2024 09:51:38 01/11/2024 09:56:47 01/11/2024 09:56:47 RN Exam Complete 01/11/2024 09:51:38 01/11/2024 10:00:26 01/11/2024 10:00:26 Registration Complete 01/11/2024 09:56:47 01/11/2024 10:58:49 01/11/2024 10:58:49 Consult Request 01/11/2024 10:04:09 EKG Complete 01/11/2024 10:04:09 01/11/2024 10:20:06 Pending Labs Request 01/11/2024 10:04:09 Lab Request 01/11/2024 10:04:09 Urine Collect Request 01/11/2024 10:04:09 Patient Care Request 01/11/2024 10:04:09 Dr Exam Complete 01/11/2024 10:06:36 01/11/2024 10:06:36 01/11/2024 10:06:36 Pending Labs Complete 01/11/2024 10:16:16 01/11/2024 10:16:16 01/11/2024 10:42:50 Lab Complete 01/11/2024 10:16:16 01/11/2024 10:16:16 01/11/2024 10:42:50 Pending Labs Inlab 01/11/2024 10:54:12 01/11/2024 10:54:12 Reg Complete Request 01/11/2024 10:58:49 Reg Bed Request Complete 01/11/2024 10:58:49 01/11/2024 10:58:49 01/11/2024 10:58:49 Pending Labs Complete 01/11/2024 11:34:50 01/11/2024 11:34:50 01/11/2024 11:34:50 ADDRESS: [address] [place] [id number] PHYS DOC NOTES: MEDICAL INFORMATION: Prescriptions Given: [...] EDUCATION INFORMATION: Instructions: Follow up: DIAGNOSIS: Acute alcoholic intoxication in alcoholism; Elevated liver enzymes; Suicidal ideation Normal [facility] ED Note-Physicianon 01-11-20 ED Note-Physician ED Note-Physician Basic Information Time Seen: Gregorio HARO, Leann Modi 01/11/2024 09:56 Chief Complaint sent here by mother from home for psych eval, visual hallucinations, and alcoholism. pt states she is suicidal with no plan, no hx of suicide. last drink right before came here. denies HI History of Present Illness Patient is a 34-year-old female with a history of bipolar disorder, alcohol and substance abuse, and smoking who presents to the ED via EMS with alcohol intoxication and suicidal ideation. Per EMS, they were called by the patient's mother due to concerns for visual hallucinations. Patient is a poor historian secondary to alcohol intoxication, but states she is having auditory hallucinations of monsters. She does not specify what they are telling her. Patient states that she has been dealing with a lot after the passing of her father. Patient states she drinks daily and notes her last alcohol consumption was just prior to arrival. Patient notes she had approximately 1 bottle of vodka. Patient notes suicidal ideation. When asked if she has a plan she repeatedly states I just want to . Patient denies any previous suicide attempts. She denies homicidal ideation. Review of Systems A 10 point review of systems is negative except as noted above. Medical and Surgical History: Reviewed and noted Social history: Lives at home Family History: Reviewed. Tobacco: Current use Physical Exam Vitals & Measurements T: 36.9 ???C(Oral) HR: 98(Peripheral) RR: 18 BP: 147/98 SpO2: 94% HT: 157 cm WT: 74 kg BMI: 30.02 General: The patient is tearful Skin: Warm, dry, no pallor noted. Head: Normocephalic, atraumatic Neck: No JVD Eye: PERRLA, EOMI ENT: Moist mucus membranes Cardiovascular: Regular rate normal peripheral perfusion Respiratory: No respiratory distress no accessory muscle use no obvious audible wheezing Chest Wall: no deformity Musculoskeletal: normal ROM, no deformity, no swelling GI: Soft no obvious distention. No rebound or rigidity. No guarding. No tenderness. Neurological: Alert, moves all extremities equal strength and symmetry Psychiatric: Cooperative, tearful Medical Decision Making Patient is a 34-year-old female with a history of bipolar disorder, alcohol and substance abuse, and smoking who presents to the ED via EMS with alcohol intoxication and suicidal ideation. Patient is hemodynamically stable and afebrile. On exam she is tearful. Lab work is reviewed. Ethanol level is 510. Alk phos, ALT, and AST are elevated from most recent lab work, however prior lab work shows higher levels. Patient is given Zofran for nausea. Urine drug screen is positive for benzodiazepines. Based on the patient's ethanol level of 510, the detox time is approximately 21.5 hours. I therefore discussed admission with the hospitalist who is agreeable. Assessment/Plan 1. Acute alcoholic intoxication in alcoholism (F10.229: Alcohol dependence with intoxication, unspecified) 2. Suicidal ideation (R45.851: Suicidal ideations) 3. History of substance use (Z87.898: Personal history of other specified conditions) 4. Elevated liver enzymes (R74.8: Abnormal levels of other serum enzymes) Orders: ondansetron, 4 mg = 2 mL, Injection, IV Push, Once, Stop date 01/11/24 13:07:00 EST, STAT, Start date 01/11/24 13:07:00 EST, 01/11/24 13:07:00 EST Beta hCG Qual CBC w/ Auto Diff Communication Order Comprehensive Metabolic Panel Consult to Mental Health Drug Screen Urine ECG 12 Lead Adult ED Physician consult Hospitalist for continued care eGFR Ethanol Level Extra Blue Tube Path. Review UA with Cult Rflx Medications Administered Given [id number] [F], 5 mg, Oral Zofran 4 mg/2 mL Injection, 4 mg, IV Push Disposition Plan Patient Discharge Condition stable Discharge Disposition admit Discharge Prescription List Prescriptions No active prescription medications Follow-up No qualifying data available Attestation Patient seen and evaluated by the physician assistant plant manager. Attending physician was present in the emergency department and supervised care. This visit was performed by both the physician and an APC. I performed all aspects of the MDM as documented. This report was transcribed using voice recognition software. Every effort was made to ensure accuracy, however, inadvertently computerized players club representative mistakes may be present. I performed a substantive part of the MDM during the patient???s E/M visit. I personally made or approved the documented management plan and acknowledge its risk of complications. (Independent Interpretation) My (EKG/X-Ray/US/CT as applicable) interpretation as above. (Discussion) Management/test interpretation discussed with APC. Problem List/Past Medical History Ongoing Alcohol abuse Bipolar depression BMI 29.0-29.9,adult Dysuria Hepatitis B Hepatitis C History of drug abuse Hyperhidrosis Lower extremity neuropathy Overweight Smoker Sore throa (more content not included)... Normal [facility] Comment on above: Result Comment: Elec tronically Signed By: Leann Perkins PA-C\.br\Date and Time Signed: 01/11/24 15:26 EST\.br\Electronically Co-Signed By: Isai Hall DO\.br\Date and Time Co-Signed: 01/11/24 15:40 EST ED Patient Education Noteon 01-11-2024 ED Patient Education Note ED Patient Education Note Normal [facility] ED Patient Education Note ED Patient Education Note Normal [facility] ED Patient Summaryon 024 ED Patient Summary ED Patient Summary [place] [id number] Patient Discharge Instructions Person Information Name: LYLE BAILEY Age: 34 Years Arrival Date: 01/11/2024 09:48:50 Discharge Diagnosis: 1:Acute alcoholic intoxication in alcoholism; 2:Suicidal ideation; 3:History of substance use; 4:Elevated liver enzymes; 5: of parent; 6:Bipolar depression Primary Care Physician: Attila SINGLETARY, Birgit Cruz Provider Information Primary Provider: Isai Hall DO Advanced Bean Snapper:Leann Perkins PA-C The exam and treatment you received in the Emergency Department were for an urgent problem and are not intended as complete care. It is important that you follow up with a doctor, nurse practitioner, or physician???s assistant plant manager for ongoing care. If your symptoms become [...] opioids can be used to help relieve dmdyhljy-ed-vbeest pain and are often prescribed following a [...] as well, even when taken as directed: ??? Tolerance???meaning you might need to take more of the medication for the same pain relief ??? Physical dependence???meaning you have symptoms of withdrawal when a medication is stopped ??? Increased sensitivity to pain ??? Constipation ??? Nausea, vomiting, and dry mouth ??? Sleepiness and dizziness ??? Confusion ??? Depression ??? Low levels of testosterone that can result in lower sex drive, energy, and strength ??? Itching and sweating RISKS ARE GREATER WITH: ??? History of drug misuse, substance use disorder, or overdose ??? Mental health conditions (such as depression or anxiety) ??? Sleep apnea ??? Older age (65 years and older) ??? Avoid alcohol while taking prescription opioids. Also, unless specifically advised by your health care provider, medications to avoid include: ??? Benzodiazepines (such as Xanax or Valium) ??? Muscle relaxants (such as Soma or Flexeril) ??? Hypnotics (such as Ambien or Lunesta) ??? Other prescription opioids KNOW YOUR OPTIONS Talk to your health care provider about ways to manage your pain that don???t involve prescription opioids. Some of these options may actually work better and have fewer risks and side effects. Options may include: ??? Pain relievers such as acetaminophen, ibuprofen, and naproxen ??? Some medication that are also used for depression or seizures ??? Physical therapy and exercise ??? Cognitive behavioral therapy, a psychological, goal-directed approach, in which patients learn how to modify physical, behavioral, and emotional triggers of pain and stress. IF YOU ARE PRESCRIBED OPIOIDS FOR PAIN: ??? Never take opioids in greater amounts or more often than prescribed. ??? Follow up with your primary health care provider. o Work together to create a plan on how to manage your pain. o Talk about ways to help manage your pain that don???t involve prescription opioids. o Talk about any and all concerns and side effects. ??? Help prevent misuse and abuse o Never sell or share prescription opioids. o Never use another person???s prescription opioids. ??? Store prescription opioids in a secure place and out of reach of others (this may include visitors, children, friends, and family). ??? Safely dispose of unused prescription opioids: Find your community drug take-back program or your pharmacy mail-back program, or flush them down the toilet, following guidance from the Food and Drug Administration (www.fda.gov/Drugs/Resou rcesForYou). ??? Visit www.cdc.gov/drugoverdose to learn about the risks of opioids abuse and overdose. ??? If you believe you may be struggling with addiction, tell your health managed care liaison and ask f (more content not included)... Normal [facility] ED Patient Summary ED Patient Summary [place] [id number] Patient Discharge Instructions Person Information Name: LYLE BAILEY Age: 34 Years Arrival Date: 01/11/2024 09:48:50 Discharge Diagnosis: Acute alcoholic intoxication in alcoholism; Elevated liver enzymes; Suicidal ideation Primary Care Physician: Birgit Aiken MD Provider Information Primary Provider: Isai Hall DO Advanced Bean Snapper:Leann Perkins PA-C The exam and treatment you received in the Emergency Department were for an urgent problem and are not intended as complete care. It is important that you follow up with a doctor, nurse practitioner, or physician???s assistant plant manager for ongoing care. If your symptoms become [...] opioids can be used to help relieve ynimhuer-xs-uucmer pain and are often prescribed following a [...] as well, even when taken as directed: ??? Tolerance???meaning you might need to take more of the medication for the same pain relief ??? Physical dependence???meaning you have symptoms of withdrawal when a medication is stopped ??? Increased sensitivity to pain ??? Constipation ??? Nausea, vomiting, and dry mouth ??? Sleepiness and dizziness ??? Confusion ??? Depression ??? Low levels of testosterone that can result in lower sex drive, energy, and strength ??? Itching and sweating RISKS ARE GREATER WITH: ??? History of drug misuse, substance use disorder, or overdose ??? Mental health conditions (such as depression or anxiety) ??? Sleep apnea ??? Older age (65 years and older) ??? Avoid alcohol while taking prescription opioids. Also, unless specifically advised by your health care provider, medications to avoid include: ??? Benzodiazepines (such as Xanax or Valium) ??? Muscle relaxants (such as Soma or Flexeril) ??? Hypnotics (such as Ambien or Lunesta) ??? Other prescription opioids KNOW YOUR OPTIONS Talk to your health care provider about ways to manage your pain that don???t involve prescription opioids. Some of these options may actually work better and have fewer risks and side effects. Options may include: ??? Pain relievers such as acetaminophen, ibuprofen, and naproxen ??? Some medication that are also used for depression or seizures ??? Physical therapy and exercise ??? Cognitive behavioral therapy, a psychological, goal-directed approach, in which patients learn how to modify physical, behavioral, and emotional triggers of pain and stress. IF YOU ARE PRESCRIBED OPIOIDS FOR PAIN: ??? Never take opioids in greater amounts or more often than prescribed. ??? Follow up with your primary health care provider. o Work together to create a plan on how to manage your pain. o Talk about ways to help manage your pain that don???t involve prescription opioids. o Talk about any and all concerns and side effects. ??? Help prevent misuse and abuse o Never sell or share prescription opioids. o Never use another person???s prescription opioids. ??? Store prescription opioids in a secure place and out of reach of others (this may include visitors, children, friends, and family). ??? Safely dispose of unused prescription opioids: Find your community drug take-back program or your pharmacy mail-back program, or flush them down the toilet, following guidance from the Food and Drug Administration (www.fda.gov/Drugs/Soren guidryesForYou). ??? Visit www.cdc.gov/drugoverdose to learn about the risks of opioids abuse and overdose. ??? If you believe you may be struggling with addiction, tell your health managed care liaison and ask for guidance or call [facility]???S [employer] Helpline at 2-240-663-EJHE. p (more content not included)... Normal [facility] Ethanolon 01-11-2024 Ethanol Lvl 510 mg/dL Abnormal <=11 [facility] Comment on above: Result Comment: Crit ical Result Verified by Repeat Analysis Critical Result [id number] Called to and read back by: MADELAINE BARRY at: 01/11/2024 10:56:12 by:BC Performed By: #### 2 [id number] #### [facility] [address] [place] [address] Extra Blueon 01-11-2024 Tube Collected Plasma Yes Invalid Interpretation Code [facility] Comment on above: Performed By: #### [id number] #### [facility] [address] [place] [address] HEMATOLOGYOrdered By: SYSTEM SYSTEM on 01-11-2024 Basophils (Bld) [#/Vol] 0.1 E9/L Normal 0.0 - 0.2 E9/L Remisol Heme Basophils/100 WBC (Bld) 1.0 % Normal 0.0 - 2.0 % Remisol Heme Eosinophils (Bld) [#/Vol] 0.1 E9/L Normal 0.0 - 0.5 E9/L Remisol Heme Eosinophils/100 WBC (Bld) 1.0 % Normal 0.0 - 8.0 % Remisol Heme Erythrocyte distribution width (RBC) [Ratio] 14.7 % High 10.9 - 14.2 % Remisol Heme Hematocrit (Bld) [Volume fraction] 38.7 % Normal 34.0 - 46.0 % Remisol Heme Hemoglobin (Bld) [Mass/Vol] 13.5 g/dL Normal 12.0 - 16.0 gm/dL Remisol Heme Lymphocytes (Bld) [#/Vol] 4.0 E9/L Normal 1.0 - 4.0 E9/L Remisol Heme Lymphocytes/100 WBC (Bld) 30.0 % Normal 14.0 - 50.0 % Remisol Heme MCH (RBC) [Entitic mass] 34.2 pg High 27.0 - 34.0 pg Remisol Heme MCHC (RBC) [Mass/Vol] 34.9 g/dL Normal 31.4 - 36.0 gm/dL Remisol Heme MCV (RBC) [Entitic vol] 97.9 fL Normal 80.0 - 100.0 fL Remisol Heme Monocytes (Bld) [#/Vol] 0.4 E9/L Normal 0.2 - 1.0 E9/L Remisol Heme Monocytes/100 WBC (Bld) 6.0 % Normal 4.0 - 14.0 % Remisol Heme Neutrophils (Bld) [#/Vol] 1.8 E9/L Invalid Interpretation Code Remisol Heme Platelet mean volume (Bld) [Entitic vol] 7.9 fL Normal 6.4 - 10.8 fL Remisol Heme Platelets (Bld) [#/Vol] 136.0 E9/L Low 150.0 - 500.0 E9/L Remisol Heme RBC (Bld) [#/Vol] 4.0 E12/L Low 4.3 - 5.9 E12/L Remisol Heme RBC size Nom (Bld) NORMAL *NA* (01/11/24 10:12 AM) Invalid Interpretation Code Remisol Heme Segmented neutrophils/100 WBC (Bld) 29.0 % Low 36.0 - 75.0 % Remisol Heme Variant lymphocytes/100 WBC (Bld) 33.0 % High 0.0 - 0.0 % Remisol Heme WBC corrected for nucl RBC Auto (Bld) [#/Vol] 6.3 E9/L Normal 4.0 - 11.0 E9/L Remisol Heme Pre-Arrival Noteon Pre-Arrival Note Pre-Arrival Note Pre-Arrival Summary Name: , [facility] Current Date: 01/11/2024 09:56:48 EST Gender: Female Date of : Age: 34 Pre-Arrival Type: EMS ETA: 01/11/2024 10:12:00 EST Primary Care Physician: Presenting Problem: psych eval etoh Pre-Arrival User: Le Keyes Referring Source: Location: PA Completion Date/Time: 01/11/2024 09:38:00 [facility] Emergency Department Pre-Hospital Report Form Vital Signs: Pre-Hospital Report: Treatment in Route: Response to Treatment: Misc. Issues: Normal [facility] SEROLOGYOrdered By: Ernesto hoyt on 01-11-2024 Beta HCG ( test) Ql Negative (01/11/24 10:12 AM) Normal [facility] [place] Man Sero U Drug Screenon 01-11-2024 Amphetamines Screen method >1000 ng/mL Ql (U) Negative Normal NEGATIVE [facility] Comment on above: Result Comment: Nega tive Cutoff: <1000 ng/mL Performed By: #### 2 [id number] #### [facility] [address] [place] [address] Barbiturates Screen Ql (U) Negative Normal NEGATIVE [facility] Comment on above: Result Comment: Nega tive Cutoff: <200 ng/mL Performed By: #### 2 [id number] #### [facility] [address] [place] [address] Cannabinoids Screen Ql (U) Negative Normal NEGATIVE [facility] Comment on above: Result Comment: Nega tive Cutoff: <50 ng/mL Performed By: #### 2 [id number] #### [facility] [address] [place] [address] Cocaine Ql (U) Negative Normal NEGATIVE [facility] Comment on above: Result Comment: Nega tive Cutoff: <300 ng/mL Performed By: #### 2 [id number] #### [facility] [address] [place] [address] Opiates Screen Ql (U) Negative Normal NEGATIVE [facility] Comment on above: Result Comment: Nega tive Cutoff: <300 ng/mL Performed By: #### 2 [id number] #### [facility] [address] [place] [address] Phencyclidine Screen method >25 ng/mL Ql (U) Negative Normal NEGATIVE [facility] Comment on above: Result Comment: Nega tive Cutoff: <25 ng/mL These drug screen results are to be used for medical (i.e., treatment) purposes only. Unconfirmed drug screening results must not be used for non-medical purposes (e.g., employment testing, legal testing). Performed By: #### 2 [id number] #### [facility] [address] [place] [address] U Fentanyl Negative Normal NEGATIVE [facility] Comment on above: Result Comment: Nega tive Cutoff: <5 ng/mL These drug screen results are to be used for medical (i.e., treatment) purposes only. Unconfirmed drug screening results must not be used for non-medical purposes (e.g., employment testing, legal testing). Performed By: #### 2 [id number] #### [facility] [address] [place] [address] Benzodiazepines Ql (U) Positive Abnormal NEGATIVE [facility] Comment on above: Result Comment: Crit ical Result Verified by Repeat Analysis Called to ER/Leann Ling Negative Cutoff: <200 ng/mL Performed By: #### 2 [id number] #### [facility] [address] [place] [address] UA with Cult Rflxon 01-11-20 24 Bilirubin Ql (U) Negative Normal Negative [facility] Comment on above: Performed By: #### 4 [id number] #### [facility] [address] [place] [address] Clarity (U) Clear Normal Clear [facility] Comment on above: Performed By: #### 4 [id number] #### [facility] [address] [place] [address] Color (U) Colorless Abnormal Yellow [facility] Comment on above: Result Comment: Micr oscopic readings are only performed on those samples that meet specific criteria set forth by [facility]. Performed By: #### 4 [id number] #### [facility] [address] [place] [address] Glucose Ql (U) Negative Normal Negative [facility] Comment on above: Performed By: #### 4 [id number] #### [facility] [address] [place] [address] Hemoglobin Auto test strip (U) [Mass/Vol] Negative Normal Negative [facility] Comment on above: Performed By: #### 4 [id number] #### [facility] [address] [place] [address] Ketones Auto test strip Ql (U) Negative Normal Negative [facility] Comment on above: Performed By: #### 4 [id number] #### [facility] [address] [place] [address] Leukocyte esterase Auto test strip Ql (U) Negative Normal Negative [facility] Comment on above: Performed By: #### 4 [id number] #### [facility] [address] [place] [address] Nitrite Auto test strip Ql (U) Negative Normal Negative [facility] Comment on above: Performed By: #### 4 [id number] #### [facility] [address] [place] [address] pH (U) 6.0 [pH] Invalid Interpretation Code 5.0-9.0 [facility] Comment on above: Performed By: #### 4 [id number] #### [facility] [address] [place] [address] Protein Ql (U) Negative Normal Negative [facility] Comment on above: Performed By: #### 4 [id number] #### [facility] [address] [place] [address] Specific gravity (U) [Rel density] 1.004 Invalid Interpretation Code 1.005-1.030 [facility] Comment on above: Performed By: #### 4 [id number] #### [facility] [address] [place] [address] Urobilinogen (U) [Mass/Vol] Negative Normal Negative [facility] Comment on above: Performed By: #### 4 [id number] #### [facility] [address] [place] [address] Type of Urine collection method Clean Catch Normal [facility] Comment on above: Performed By: #### 4 [id number] #### [facility] [address] [place] [address] URINALYSISOrdered By: SYSTEM SYSTEM on 01-11-2024 Bilirubin Ql (U) Negative Normal Negativemg/ d L [facility]A Auto SS Clarity (U) Clear (01/11/24 12:58 PM) Normal Clear [facility] UA Auto SS Color (U) Colorless 4 *ABN* (01/11/24 12:58 PM) Invalid Interpretation Code Yellow [facility] UA Auto SS Comment on above: Interpretive Data: M icroscopic readings are only performed on those samples that meet specific criteria set forth by [facility]. Glucose Ql (U) Negative Normal [...] UA Auto SS pH (U) 6.0 *NA* (01/11/24 12:58 PM) Invalid Interpretation Code 5.0 - 9.0 [facility] UA Auto SS Protein Ql (U) Negative Normal Negativemg/d L [facility] UA Auto SS Specific gravity (U) [Rel density] 1.004 *NA* (01/11/24 12:58 PM) Invalid Interpretation Code 1.005 - 1.030 [facility] UA Auto SS Urobilinogen (U) [Mass/Vol] Negative Normal Negativemg/d L [facility] UA Auto SS URINALYSISOrdered By: Leann Perkins on 01-11-2024 UA Spec Desc Clean Catch (01/11/24 12:58 PM) Normal [facility] [place] UA Auto SS eGFRon 01-11-2024 eGFR 128 mL/min/1.73 m2 Normal >=59 [facility] Comment on above: Performed By: #### 1 [id number] #### [facility] [address] [place] [address] ED Note-Physicianon 12-08-19 ED Note-Physician ED Note-Physician Basic Information Time Seen: Savannah Rossi PA-C 12/05/2023 15:41 Chief Complaint Pt had seizure witnessed by mother. hx of alcoholism. says she hasnt drank in 3 days History of Present Illness 33-year-old female presents here with concerns for seizure-like activity. Patient reports that she was sleeping and had a witnessed seizure. States that her mother saw her convulsing was concerning for seizure. Patient states that she woke up and did not know what happened. Patient does have history of seizure-like activity related to alcohol withdrawal, has not been seen by neurology. Patient reports that her last drink was 2 or 3 days ago. Patient denies history of illicit drug use though chart review reports history. Patient denies fevers or chills, no other symptoms, denies any urinary symptoms. Patient does not describe any postictal symptoms. Patient did bite her tongue. No fall, injury, trauma, patient did not hit her head. Review of Systems All organ systems are reviewed. Pertinent positive and negative findings as mentioned in the HPI. Physical Exam Vitals & Measurements T: 36.5 ???C(Oral) HR: 108(Monitored) RR: 18 BP: 102/87 SpO2: 96% HT: 157.49 cm WT: 73.6 kg BMI: 29.67 GENERAL APPEARANCE: Well developed, well nourished, alert and cooperative, and appears mildly anxious, fidgety. HEAD: normocephalic, atraumatic EYES: PERRL, EOMI. Vision is grossly intact. EARS: External auditory canals clear, hearing grossly intact. NOSE: No nasal discharge. THROAT: Oral cavity and pharynx normal. Oral mucosa moist. No inflammation, swelling, exudate, or lesions. NECK: Neck supple, non-tender without lymphadenopathy, masses. CARDIAC: Normal heart sounds, no murmurs. Rhythm is regular. LUNGS: Clear to auscultation without rales, rhonchi, wheezing or diminished breath sounds. ABDOMEN: Soft, nondistended, nontender. No guarding or rebound. MUSCULOSKELETAL: Adequately aligned spine. ROM intact spine and extremities. No joint erythema or tenderness. No NEUROLOGICAL: CN grossly intact. Strength and sensation symmetric and intact throughout. SKIN: Skin normal color, texture and turgor with no lesions or eruptions. Assessment/Plan 1. Seizure-like activity (R56.9: Unspecified convulsions) 2. 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 Reports witnessed seizure by mother uncertain length. Patient states this occurred in her sleep. Does have history of similar presentations. In the ER patient is afebrile vitals are stable, no acute distress. Patient alert and aware. Labs are reviewed noted, no concerning findings. U tox shows amphetamines and benzodiazepines. Patient has had no seizure activity in the ER. Examination patient resting comfortably in bed, she is agreeable and anxious for discharge. Patient to follow-up with her PCP and with neurology and is to return to the ER with any worsening symptoms. Of note patient's urinalysis was concerning for possible infection, patient is asymptomatic without dysuria, urine urgency or frequency. I discussed these results with the patient and she states that she would prefer to wait for urine culture instead of being treated. This is reasonable. Disposition Plan Patient Discharge Condition Improved, stable Discharge Disposition To home Discharge Prescription List Prescriptions No active prescription medications Follow-up With When Contact Information Birgit Aiken In 3 days 12/08/2023 [address]T 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 The attending physician was in the Emergency Department at all times and supervised care. The case was discussed with the attending physician and diagnostics were reviewed as needed. Problem List/Past Medical History Ongoing Alcohol abuse Bipolar depression BMI 29.0-29.9,adult Dysuria Hepatitis B Hepatitis C History of drug abuse Hyperhidrosis Lower extremity neuropathy Overweight Smoker Sore throat STD exposure UTI (urinary tract infection), uncomplicated Historical Group B streptococcus Smoker.. Yeast vaginitis Procedure/Surgical History None. Medications Inpatient No active inpatient medications (more content not included)... Normal [facility] Comment on above: Result Comment: Elec tronically Signed By: Savannah Rossi PA-C\.br\Date and Time Signed: 12/05/23 20:32 EDT\.br\Electronically Co-Signed By: Gladys Saini M.D.\.br\Date and Time Co-Signed: 12/08/23 07:10 EDT BMPon 12-05-2023 Anion gap [Moles/Vol] 17 mmol/L High 6-16 [facility] Comment on above: Performed By: #### 2 [id number] #### [facility] [address] [place] [address] Calcium [Mass/Vol] 10.4 mg/dL Normal 8.9-11.1 [facility] Comment on above: Performed By: #### 2 [id number] #### [facility] [address] [place] [address] Chloride [Moles/Vol] 96 mmol/L Low 101-111 [facility] Comment on above: Performed By: #### 2 [id number] #### [facility] [address] [place] [address] CO2 [Moles/Vol] 22 mmol/L Normal 21-31 [facility] Comment on above: Performed By: #### 2 [id number] #### [facility] [address] [place] [address] Creatinine [Mass/Vol] 0.8 mg/dL Normal 0.5-1.3 [facility] Comment on above: Performed By: #### 2 [id number] #### [facility] [address] [place] [address] Glucose [Mass/Vol] 74 mg/dL Normal 55-199 [facility] Comment on above: Performed By: #### 2 [id number] #### [facility] [address] [place] [address] Potassium [Moles/Vol] 4.1 mmol/L Normal 3.5-5.3 [facility] Comment on above: Performed By: #### 2 [id number] #### [facility] [address] [place] [address] Sodium [Moles/Vol] 131 mmol/L Low 135-145 [facility] Comment on above: Performed By: #### 2 [id number] #### [facility] [address] [place] [address] Urea nitrogen [Mass/Vol] 14 mg/dL Normal 5-21 [facility] Comment on above: Performed By: #### 2 [id number] #### [facility] [address] [place] [address] Urea nitrogen/Creatinine [Mass ratio] 18 No Units Normal 10-20 [facility] Comment on above: Performed By: #### 2 [id number] #### [facility] [address] [place] [address] CBC w/ Auto Diffon 4 Basophils/100 WBC (Bld) 0.5 % Normal 0.0-2.0 [facility] Comment on above: Performed By: #### 2 [id number] #### [facility] [address] [place] [address] Basophils/Leukocytes Auto (Bld) [Pure # fraction] 0.0 E9/L Normal 0.0-0.2 [facility] Comment on above: Performed By: #### 2 [id number] #### [facility] [address] [place] [address] Eosinophils (Bld) [#/Vol] 0.1 E9/L Normal 0.0-0.5 [facility] Comment on above: Performed By: #### 2 [id number] #### [facility] [address] [place] [address] Eosinophils/100 WBC (Bld) 0.8 % Normal 0.0-8.0 [facility] Comment on above: Performed By: #### 2 [id number] #### [facility] [address] [place] [address] Erythrocyte distribution width (RBC) [Ratio] 13.6 % Normal 10.9-14.2 [facility] Comment on above: Performed By: #### 2 [id number] #### [facility] [address] [place] [address] Hematocrit (Bld) [Volume fraction] 46.9 % High 34.0-46.0 [facility] Comment on above: Performed By: #### 2 [id number] #### [facility] [address] [place] [address] Hemoglobin (Bld) [Mass/Vol] 16.2 g/dL High 12.0-16.0 [facility] Comment on above: Performed By: #### 2 [id number] #### [facility] [address] [place] [address] Lymphocytes (Bld) [#/Vol] 1.7 E9/L Normal 1.0-4.0 [facility] Comment on above: Performed By: #### 2 [id number] #### [facility] [address] [place] [address] Lymphocytes/100 WBC (Bld) 15.9 % Normal 14.0-50.0 [facility] Comment on above: Performed By: #### 2 [id number] #### [facility] [address] [place] [address] MCH (RBC) [Entitic mass] 33.3 pg Normal 27.0-34.0 [facility] Comment on above: Performed By: #### 2 [id number] #### [facility] [address] [place] [address] MCHC (RBC) [Mass/Vol] 34.6 g/dL Normal 31.4-36.0 [facility] Comment on above: Performed By: #### 2 [id number] #### [facility] [address] [place] [address] MCV (RBC) [Entitic vol] 96.2 fL Normal 80.0-100.0 [facility] Comment on above: Performed By: #### 2 [id number] #### [facility] [address] [place] [address] Monocytes (Bld) [#/Vol] 0.3 E9/L Normal 0.2-1.0 [facility] Comment on above: Performed By: #### 2 [id number] #### [facility] [address] [place] [address] Neutrophils (Bld) [#/Vol] 8.6 E9/L High 2.0-7.5 [facility] Comment on above: Performed By: #### 2 [id number] #### [facility] [address] [place] [address] Neutrophils/100 WBC (Bld) 79.9 % High 36.0-75.0 [facility] Comment on above: Performed By: #### 2 [id number] #### [facility] [address] [place] [address] Platelet mean volume (Bld) [Entitic vol] 9.6 fL Normal 6.4-10.8 [facility] Comment on above: Performed By: #### 2 [id number] #### [facility] [address] [place] [address] Platelets (Bld) [#/Vol] 153.0 E9/L Normal 150.0-500.0 [facility] Comment on above: Performed By: #### 2 [id number] #### [facility] [address] [place] [address] RBC (Bld) [#/Vol] 4.9 E12/L Normal 4.3-5.9 [facility] Comment on above: Performed By: #### 2 [id number] #### [facility] [address] [place] [address] WBC corrected for nucl RBC Auto (Bld) [#/Vol] 10.7 E9/L Normal 4.0-11.0 [facility] Comment on above: Performed By: #### 2 [id number] #### [facility] [address] [place] [address] CHEMISTRYOrdered By: SYSTEM SYSTEM on 12-05-2023 Amphetamines Screen method >1000 ng/mL Ql (U) POSITIVE 8, 9 *ABN* (12/05/23 5:54 PM) Invalid Interpretation Code NEGATIVE [facility] Comment on above: Result Comment: No C onfirmation Requested by Physician Result Verified by Repeat Analysis Unconfirmed by an Alternate Method called to and read back by Manfred Dewitt/ JORGE Interpretive Data: N egative Cutoff: <1000 ng/mL Barbiturates Screen Ql (U) NEGATIVE 10 (12/05/23 5:54 PM) Normal NEGATIVE [facility] Comment on above: Interpretive Data: N egative Cutoff: <200 ng/mL Benzodiazepines Ql (U) POSITIVE 1, 2 *ABN* (12/05/23 5:54 PM) Invalid Interpretation Code NEGATIVE [facility] Comment on above: Result Comment: No C onfirmation Requested by Physician Result Verified by Repeat Analysis Unconfirmed by an Alternate Method called to and read back by Manfred Dewitt/ JORGE Interpretive Data: N egative Cutoff: <200 ng/mL Cannabinoids Screen Ql (U) NEGATIVE 7 (12/05/23 5:54 PM) Normal NEGATIVE [facility] Comment on above: Interpretive Data: N egative Cutoff: <50 ng/mL Cocaine Ql (U) NEGATIVE 3 (12/05/23 5:54 PM) Normal NEGATIVE [facility] Comment on above: Interpretive Data: N egative Cutoff: <300 ng/mL Opiates Screen Ql (U) NEGATIVE 5 (12/05/23 5:54 PM) Normal NEGATIVE [facility] Comment on above: Interpretive Data: N egative Cutoff: <300 ng/mL Phencyclidine Screen method >25 ng/mL Ql (U) NEGATIVE 6 (12/05/23 5:54 PM) Normal NEGATIVE [facility] Comment on above: Interpretive Data: N egative Cutoff: <25 ng/mL These drug screen results are to be used for medical (i.e., treatment) purposes only. Unconfirmed drug screening results must not be used for non-medical purposes (e.g., employment testing, legal testing). U Fentanyl NEGATIVE 11 (12/05/23 5:54 PM) Normal NEGATIVE [facility] Comment on above: Interpretive Data: N egative Cutoff: <5 ng/mL These drug screen results are to be used for medical (i.e., treatment) purposes only. Unconfirmed drug screening results must not be used for non-medical purposes (e.g., employment testing, legal testing). Ethanol Lvl mg/dL Normal <=11mg/dL [facility] Anion gap [Moles/Vol] 17 mmol/L High 6 - 16 mEq/L R [facility] Chem Calcium [Mass/Vol] 10.4 mg/dL Normal 8.9 - 11. 1 mg/dL [facility] Chloride [Moles/Vol] 96 mmol/L Low 101 - 1 11 mmol/L [facility] CO2 [Moles/Vol] 22 mmol/L Normal 21 - 31 mmol/L [facility] Creatinine [Mass/Vol] 0.8 mg/dL Normal 0.5 - 1.3 mg/dL [facility] eGFR 100 mL/min/1.73 m2 Normal >=59mL/mi n/1 .73 m2 [facility] Glucose [Mass/Vol] 74 mg/dL Normal 55 - 199 mg/dL [facility] Potassium [Moles/Vol] 4.1 mmol/L Normal 3.5 - 5.3 mmol/L [facility] Sodium [Moles/Vol] 131 mmol/L Low 135 - 145 mmol/L [facility] Urea nitrogen [Mass/Vol] 14 mg/dL Normal 5 - 21 mg/dL [facility] Urea nitrogen/Creatinine [Mass ratio] 18 mg/mg Normal 10 - 20 [facility] ED Clinical Summaryon 2023 ED Clinical Summary ED Clinical Summary [address] [address] ED Clinical Summary Person Information Name: LYLE BAILEY [facility] Age: 33 Years : 1990 Sex: Female Language: Brazilian PCP: Birgit Aiken MD Marital Status: Single Visit Id: Visit Reason: Seizure; SEIZURE Speciality: Acuity: 2 Enc Type: Emergency Med Service: Emergency Arrival: 12/05/2023 15:40:53 Discharge: 12/05/2023 18:42:27 LOS: 000 03:02 Checkin: 12/05/2023 15:40:53 Checkout: 12/05/2023 18:42:27 Dispo Type: Home (Routine DC) EVENTS: Event Name Event Status Request Date/Time Start Date/Time Complete Date/Time Arrive Complete 12/05/2023 15:40:53 12/05/2023 15:40:53 12/05/2023 15:40:53 Document Home Meds Request 12/05/2023 15:40:53 Triage Complete 12/05/2023 15:40:53 12/05/2023 15:44:51 12/05/2023 15:44:51 Bed Assign Complete 12/05/2023 15:40:53 12/05/2023 15:40:53 12/05/2023 15:40:53 Dr Exam Complete 12/05/2023 15:40:53 12/05/2023 15:41:57 12/05/2023 15:41:57 RN Exam Complete 12/05/2023 15:40:53 12/05/2023 15:51:47 12/05/2023 15:51:47 Registration Complete 12/05/2023 15:41:57 12/05/2023 15:56:36 12/05/2023 15:56:36 Dr Exam Complete 12/05/2023 15:54:34 12/05/2023 15:54:34 12/05/2023 15:54:34 Reg Complete Request 12/05/2023 15:56:36 Reg Bed Request Complete 12/05/2023 15:56:36 12/05/2023 15:56:36 12/05/2023 15:56:36 Pending Labs Complete 12/05/2023 16:09:02 12/05/2023 18:29:53 Lab Complete 12/05/2023 16:09:02 12/05/2023 18:29:53 Urine Collect Complete 12/05/2023 16:09:02 12/05/2023 18:29:53 Patient Care Request 12/05/2023 16:09:02 EKG Complete 12/05/2023 16:09:26 12/05/2023 16:25:40 Pending Labs Complete 12/05/2023 16:34:16 12/05/2023 16:34:16 12/05/2023 16:58:49 Lab Complete 12/05/2023 16:34:16 12/05/2023 16:34:16 12/05/2023 16:58:49 Pending Labs Complete 12/05/2023 16:55:05 12/05/2023 16:55:05 12/05/2023 16:55:05 Discharge Complete 12/05/2023 18:31:38 12/05/2023 18:42:36 12/05/2023 18:42:36 Transfer Complete 12/05/2023 18:42:36 12/05/2023 18:42:36 12/05/2023 18:42:36 ADDRESS: [address] [place] [id number] [facility] DOC NOTES: MEDICAL INFORMATION: Prescriptions Given: Medications [...] times a day. PATIENT EDUCATION INFORMATION: Instructions: Methamphetamine Use Disorder; Alcohol Withdrawal Syndrome Follow up: With: Address: When: Francisco Bergman [address] [place] [phone] Business (1) In 3 days 12/08/2023 Comments: Call to schedule an appointment with neurology regarding your possiblel seizure-like activity With: Address: When: Birgit Attila [address] [place] [address] Business (1) In 3 days 12/08/2023 DIAGNOSIS: 1:Seizure-like activity; 2:History of drug abuse Normal [facility] ED Patient Summaryon ED Patient Summary ED Patient Summary [address] [address] Patient Discharge Instructions Person Information Name: LYLE BAILEY Age: 33 Years Arrival Date: 12/05/2023 15:40:53 Discharge Diagnosis: 1:Seizure-like activity; 2:History of drug abuse Primary Care Physician: Birgit Aiken MD Provider Information Primary Provider: Gladys Saini M.D. Advanced Bean Snapper:Savannah Rossi PA-C The exam and treatment you received in the Emergency Department were for an urgent problem and are not intended as complete care. It is important that you follow up with a doctor, nurse practitioner, or physician???s assistant plant manager for ongoing care. If your symptoms become worse or you do not improve as expected and you are unable to reach your usual health care provider, you should return to the Emergency Department. We are available 24 hours a day. LYLE BAILEY has been given the following list of patient education materials, prescriptions and follow-up instructions: Follow-up Instructions: With: Address: When: Francisco Bergman, [place] [address] Business (1) In 3 days 12/08/2023 Comments: Call to schedule an appointment with neurology regarding your possiblel seizure-like activity With: Address: When: Birgit Aiken [address] [place] [address] Business (1) In 3 days 12/08/2023 In the event that this physician does not participate in your insurance network, please consult with your insurance company to find a nearby participating provider. Patient Education Materials: Methamphetamine Use Disorder; Alcohol Withdrawal Syndrome A MESSAGE TO ALL PATIENTS REGARDING OPIOIDS PRESCRIPTION OPIOIDS: WHAT YOU NEED TO KNOW Prescription opioids can be used to help relieve mjnjghml-jz-doxoiy pain and are often prescribed following a [...] as well, even when taken as directed: ??? Tolerance???meaning you might need to take more of the medication for the same pain relief ??? Physical dependence???meaning you have symptoms of withdrawal when a medication is stopped ??? Increased sensitivity to pain ??? Constipation ??? Nausea, vomiting, and dry mouth ??? Sleepiness and dizziness ??? Confusion ??? Depression ??? Low levels of testosterone that can result in lower sex drive, energy, and strength ??? Itching and sweating RISKS ARE GREATER WITH: ??? History of drug misuse, substance use disorder, or overdose ??? Mental health conditions (such as depression or anxiety) ??? Sleep apnea ??? Older age (65 years and older) ??? Avoid alcohol while taking prescription opioids. Also, unless specifically advised by your health care provider, medications to avoid include: ??? Benzodiazepines (such as Xanax or Valium) ??? Muscle relaxants (such as Soma or Flexeril) ??? Hypnotics (such as Ambien or Lunesta) ??? Other prescription opioids KNOW YOUR OPTIONS Talk to your health care provider about ways to manage your pain that don???t involve prescription opioids. Some of these options may actually work better and have fewer risks and side effects. Options may include: ??? Pain relievers such as acetaminophen, ibuprofen, and naproxen ??? Some medication that are also used for depression or seizures ??? Physical therapy and exercise ??? Cognitive behavioral therapy, a psychological, goal-directed approach, in which patients learn how to modify physical, behavioral, and emotional triggers of pain and stress. IF YOU ARE PRESCRIBED OPIOIDS FOR PAIN: ??? Never take opioids in greater amounts or more often than prescribed. ??? Follow up with your primary health care provider. o Work together to create a plan on how to manage your pain. o Talk about ways to help manage your pain that don???t involve prescription opioids. o Talk about any and all concerns and side effects. ??? Help prevent misuse and abuse o Never sell or share prescription opioids. o Never use another person???s prescription opioids. ??? Store prescription opioids in a secure place and out of reach of others (this may include visitors, children, friends, and family). ??? Safely dispose of unused prescription opioids: Find your community drug take-back program or your pharmacy (more content not included)... Normal [facility] Ethanolon 12-05-2023 Ethanol Lvl <10 Normal <=11 [facility] Comment on above: Performed By: #### 2 [id number] #### [facility] Laboratory [address] [place] [address] Extra Blueon 12-05-2023 Tube Collected Plasma Yes Invalid Interpretation Code [facility] Comment on above: Performed By: #### 1 [id number] #### [facility] Laboratory [address] [place] [address] HEMATOLOGYOrdered By: SYSTEM SYSTEM on 12-05-2023 Basophils/100 WBC (Bld) 0.5 % Normal 0.0 - 2.0 % Remisol Heme Basophils/Leukocytes Auto (Bld) [Pure # fraction] 0.0 E9/L Normal 0.0 - 0.2 E9/L Remisol Heme Eosinophils (Bld) [#/Vol] 0.1 E9/L Normal 0.0 - 0.5 E9/L Remisol Heme Eosinophils/100 WBC (Bld) 0.8 % Normal 0.0 - 8.0 % Remisol Heme Erythrocyte distribution width (RBC) [Ratio] 13.6 % Normal 10.9 - 14.2 % Remisol Heme Hematocrit (Bld) [Volume fraction] 46.9 % High 34.0 - 46.0 % Remisol Heme Hemoglobin (Bld) [Mass/Vol] 16.2 g/dL High 12.0 - 16.0 gm/dL Remisol Heme Lymphocytes (Bld) [#/Vol] 1.7 E9/L Normal 1.0 - 4.0 E9/L Remisol Heme Lymphocytes/100 WBC (Bld) 15.9 % Normal 14.0 - 50.0 % Remisol Heme MCH (RBC) [Entitic mass] 33.3 pg Normal 27.0 - 34.0 pg Remisol Heme MCHC (RBC) [Mass/Vol] 34.6 g/dL Normal 31.4 - 36.0 gm/dL Remisol Heme MCV (RBC) [Entitic vol] 96.2 fL Normal 80.0 - 100.0 fL Remisol Heme Monocytes (Bld) [#/Vol] 0.3 E9/L Normal 0.2 - 1.0 E9/L Remisol Heme Monocytes/100 WBC (Bld) 2.9 % Low 4.0 - 14.0 % Remisol Heme Neutrophils (Bld) [#/Vol] 8.6 E9/L High 2.0 - 7.5 E9/L Remisol Heme Neutrophils/100 WBC (Bld) 79.9 % High 36.0 - 75.0 % Remisol Heme Platelet mean volume (Bld) [Entitic vol] 9.6 fL Normal 6.4 - 10.8 fL Rem[facility] Heme Platelets (Bld) [#/Vol] 153.0 E9/L Normal 150.0 - 500.0 E9/L Remisol Heme RBC (Bld) [#/Vol] 4.9 E12/L Normal 4.3 - 5.9 E12/L Remisol Heme WBC corrected for nucl RBC Auto (Bld) [#/Vol] 10.7 E9/L Normal 4.0 - 11.0 E9/L Remisol Heme Pre-Arrival Noteon Pre-Arrival Note Pre-Arrival Note Pre-Arrival Summary Name: , [place] [facility] Current Date: 12/05/2023 15:41:15 EDT Gender: Female Date of : Age: 33 Pre-Arrival Type: EMS ETA: 12/05/2023 16:03:00 EDT Primary Care Physician: Presenting Problem: seizure Pre-Arrival User: Wendi Nevarez RN Referring Source: Location: [place] Completion Date/Time: 12/05/2023 15:34:00 [facility] Emergency Department Pre-Hospital Report Form Vital Signs: Pre-Hospital Report: Treatment in Route: Response to Treatment: Misc. Issues: Normal [facility] U Drug Screenon 12-05-2023 Amphetamines Screen method >1000 ng/mL Ql (U) Positive Abnormal NEGATIVE [facility] Comment on above: Result Comment: No C onfirmation Requested by Physician Result Verified by Repeat Analysis Unconfirmed by an Alternate Method called to and read back by Manfred PATEL Negative Cutoff: <1000 ng/mL Performed By: #### 2 [id number] #### [facility] [address] [place] [address] Barbiturates Screen Ql (U) Negative Normal NEGATIVE [facility] Comment on above: Result Comment: Nega tive Cutoff: <200 ng/mL Performed By: #### 2 [id number] #### [facility] [address] [place] [address] Benzodiazepines Ql (U) Positive Abnormal NEGATIVE [facility] Comment on above: Result Comment: No C onfirmation Requested by Physician Result Verified by Repeat Analysis Unconfirmed by an Alternate Method called to and read back by Manfred PATEL Negative Cutoff: <200 ng/mL Performed By: #### 2 [id number] #### [facility] [address] [place] [address] Cannabinoids Screen Ql (U) Negative Normal NEGATIVE [facility] Comment on above: Result Comment: Nega tive Cutoff: <50 ng/mL Performed By: #### 2 [id number] #### [facility] [address] [place] [address] Cocaine Ql (U) Negative Normal NEGATIVE [facility] Comment on above: Result Comment: Nega tive Cutoff: <300 ng/mL Performed By: #### 2 [id number] #### [facility] [address] [place] [address] Opiates Screen Ql (U) Negative Normal NEGATIVE [facility] Comment on above: Result Comment: Nega tive Cutoff: <300 ng/mL Performed By: #### 2 [id number] #### [facility] [address] [place] [address] Phencyclidine Screen method >25 ng/mL Ql (U) Negative Normal NEGATIVE [facility] Comment on above: Result Comment: Nega tive Cutoff: <25 ng/mL These drug screen results are to be used for medical (i.e., treatment) purposes only. Unconfirmed drug screening results must not be used for non-medical purposes (e.g., employment testing, legal testing). Performed By: #### 2 [id number] #### [facility] [address] [place] [address] U Fentanyl Negative Normal NEGATIVE [facility] Comment on above: Result Comment: Nega tive Cutoff: <5 ng/mL These drug screen results are to be used for medical (i.e., treatment) purposes only. Unconfirmed drug screening results must not be used for non-medical purposes (e.g., employment testing, legal testing). Performed By: #### 2 [id number] #### [facility] [address] [place] [address] URINALYSISOrdered By: SYSTEM SYSTEM on 12-05-2023 Bacteria Auto Ql (U) Trace /HPF Normal Trace/HPF [facility] UA Auto SS Bilirubin Ql (U) Negative Normal Negativemg/ d L [facility] UA Auto SS Clarity (U) Turbid *ABN* (12/05/23 5:54 PM) Invalid Interpretation Code Clear [facility] UA Auto SS Color (U) Yellow 4 (12/05/23 5:54 PM) Normal Yellow [facility]A Auto SS Comment on above: Interpretive Data: M icroscopic readings are only performed on those samples that meet specific criteria set forth by [facility]. Epithelial cells.squamous Auto (Urine sed) [#/Area] 3-4 graded/HPF Invalid Interpretation Code [facility] UA Auto SS Glucose Ql (U) Negative Normal Negativemg/d L [facility] UA Auto SS Hemoglobin Auto test strip (U) [Mass/Vol] Trace mg/dL Invalid Interpretation Code Negativemg/d L [facility] UA Auto SS Hyaline casts LM Ql (Urine sed) 0-3 graded/LPF Normal 0-3graded/LP F [facility] UA Auto SS Ketones Auto test strip Ql (U) 1+ mg/dL Invalid Interpretation Code Negativemg/d L [facility] UA Auto SS Leukocyte esterase Auto test strip Ql (U) 500 Oracio/uL Oracio/uL Invalid Interpretation Code NegativeLeu/ uL [facility] UA Auto SS Mucus Auto Ql (U) Trace graded/LPF Normal Negati vegrad ed/LPF [facility] UA Auto SS Nitrite Auto test strip Ql (U) Negative Normal Negativemg/d L [facility] UA Auto SS pH (U) 6.0 *NA* (12/05/23 5:54 PM) Invalid Interpretation Code 5.0 - 9.0 [facility] UA Auto SS Protein Ql (U) 1+ mg/dL Invalid Interpretation Code Negativemg/d L [facility] UA Auto SS RBC Ql (U) 4-20 graded/HPF Invalid Interpretation Code 0-3graded/HP F [facility] UA Auto SS Specific gravity (U) [Rel density] 1.024 *NA* (12/05/23 5:54 PM) Invalid Interpretation Code 1.005 - 1.030 [facility] UA Auto SS Urobilinogen (U) [Mass/Vol] 8 mg/dL Invalid Interpretation Code Negativemg/d L [facility] UA Auto SS WBC Auto (Urine sed) [#/Area] >75 graded/HPF Invalid Interpretation Code 0-5graded/HP F [facility] UA Auto SS URINALYSISOrdered By: Danielle Rossi on 12-05-2023 UA Spec Desc Clean Catch (12/05/23 5:54 PM) Normal [facility] UA Auto SS Urinalysis with Microon 11-12 Bacteria Auto Ql (U) Trace Normal Trace [facility] Comment on above: Performed By: #### 4 [id number] #### [facility] [address] [place] [address] Bilirubin Ql (U) Negative Normal Negative [facility] Comment on above: Performed By: #### 4 [id number] #### [facility] [address] [place] [address] Clarity (U) Turbid Abnormal Clear [facility] Comment on above: Performed By: #### 4 [id number] #### [facility] [address] [place] [address] Color (U) Yellow Normal Yellow [facility] Comment on above: Result Comment: Micr oscopic readings are only performed on those samples that meet specific criteria set forth by [facility]. Performed By: #### 4 [id number] #### [facility] [address] [place] [address] Epithelial cells.squamous Auto (Urine sed) [#/Area] 3-4 Invalid Interpretation Code [facility] Comment on above: Performed By: #### 4 [id number] #### [facility] [address] [place] [address] Glucose Ql (U) Negative Normal Negative [facility] Comment on above: Performed By: #### 4 [id number] #### [facility] [address] [place] [address] Hemoglobin Auto test strip (U) [Mass/Vol] Trace Abnormal Negative [facility] Comment on above: Performed By: #### 4 [id number] #### [facility] [address] [place] [address] Hyaline casts LM Ql (Urine sed) 0-3 Normal 0-3 [facility] Comment on above: Performed By: #### 4 [id number] #### [facility] [address] [place] [address] Ketones Auto test strip Ql (U) 1+ mg/dL Abnormal Negative [facility] Comment on above: Performed By: #### 4 [id number] #### [facility] [address] [place] [address] Leukocyte esterase Auto test strip Ql (U) 500 Oracio/uL Abnormal Negative [facility] Comment on above: Performed By: #### 4 [id number] #### [facility] [address] [place] [address] Mucus Auto Ql (U) Trace Normal Negative [facility] Comment on above: Performed By: #### 4 [id number] #### [facility] [address] [place] [address] Nitrite Auto test strip Ql (U) Negative Normal Negative [facility] Comment on above: Performed By: #### 4 [id number] #### [facility] [address] [place] [address] pH (U) 6.0 [pH] Invalid Interpretation Code 5.0-9.0 [facility] Comment on above: Performed By: #### 4 [id number] #### [facility] [address] [place] [address] Protein Ql (U) 1+ mg/dL Abnormal Negative [facility] Comment on above: Performed By: #### 4 [id number] #### [facility] [address] [place] [address] RBC Ql (U) 4-20 Abnormal 0-3 [facility] Comment on above: Performed By: #### 4 [id number] #### [facility] [address] [place] [address] Specific gravity (U) [Rel density] 1.024 Invalid Interpretation Code 1.005-1.030 [facility] Comment on above: Performed By: #### 4 [id number] #### [facility] [address] [place] [address] Urobilinogen (U) [Mass/Vol] 8 mg/dL Abnormal Negative [facility] Comment on above: Performed By: #### 4 [id number] #### [facility] [address] [place] [address] WBC Auto (Urine sed) [#/Area] >75 Abnormal 0-5 [facility] Comment on above: Performed By: #### 4 [id number] #### [facility] [address] [place] [address] Type of Urine collection method Clean Catch Normal [facility] Comment on above: Performed By: #### 4 [id number] #### [facility] [address] [place] [address] eGFRon 12-05-2023 eGFR 100 mL/min/1.73 m2 Normal >=59 [facility] Comment on above: Performed By: #### 1 [id number] #### [facility] Laboratory [address] [place], [place] [id number] Acetamnphn Lvlon 11-27-2023 Acetaminoph Lvl <.1 Low 15.0-30.0 [facility] Comment on above: Performed By: #### 2 [id number] #### [facility] [address] [place], [place] [id number] B hCG Qualon 11-27-2023 Beta HCG ( test) Ql Negative Normal [facility] Comment on above: Performed By: #### 2 [id number] #### [facility] [address] [place] [address] CBC w/ Auto Diffon 4 Basophils/100 WBC (Bld) 0.8 % Normal 0.0-2.0 [facility] Comment on above: Performed By: #### 2 [id number] #### [facility] [address] [place] [address] Basophils/Leukocytes Auto (Bld) [Pure # fraction] 0.0 E9/L Normal 0.0-0.2 [facility] Comment on above: Performed By: #### 2 [id number] #### [facility] [address] [place] [address] Eosinophils (Bld) [#/Vol] 0.1 E9/L Normal 0.0-0.5 [facility] Comment on above: Performed By: #### 2 [id number] #### [facility] [address] [place] [address] Eosinophils/100 WBC (Bld) 1.7 % Normal 0.0-8.0 [facility] Comment on above: Performed By: #### 2 [id number] #### [facility] [address] [place] [address] Erythrocyte distribution width (RBC) [Ratio] 13.6 % Normal 10.9-14.2 [facility] Comment on above: Performed By: #### 2 [id number] #### [facility] [address] [place] [address] Hematocrit (Bld) [Volume fraction] 41.0 % Normal 34.0-46.0 [facility] Comment on above: Performed By: #### 2 [id number] #### [facility] [address] [place] [address] Hemoglobin (Bld) [Mass/Vol] 14.3 g/dL Normal 12.0-16.0 [facility] Comment on above: Performed By: #### 2 [id number] #### [facility] [address] [place] [address] Lymphocytes (Bld) [#/Vol] 1.8 E9/L Normal 1.0-4.0 [facility] Comment on above: Performed By: #### 2 [id number] #### [facility] [address] [place] [address] Lymphocytes/100 WBC (Bld) 43.2 % Normal 14.0-50.0 [facility] Comment on above: Performed By: #### 2 [id number] #### [facility] [address] [place] [address] MCH (RBC) [Entitic mass] 33.5 pg Normal 27.0-34.0 [facility] Comment on above: Performed By: #### 2 [id number] #### [facility] [address] [place] [address] MCHC (RBC) [Mass/Vol] 34.7 g/dL Normal 31.4-36.0 [facility] Comment on above: Performed By: #### 2 [id number] #### [facility] [address] [place] [address] MCV (RBC) [Entitic vol] 96.3 fL Normal 80.0-100.0 [facility] Comment on above: Performed By: #### 2 [id number] #### [facility] [address] [place] [address] Monocytes (Bld) [#/Vol] 0.3 E9/L Normal 0.2-1.0 [facility] Comment on above: Performed By: #### 2 [id number] #### [facility] [address] [place] [address] Neutrophils (Bld) [#/Vol] 2.0 E9/L Normal 2.0-7.5 [facility] Comment on above: Performed By: #### 2 [id number] #### [facility] [address] [place] [address] Neutrophils/100 WBC (Bld) 46.7 % Normal 36.0-75.0 [facility] Comment on above: Performed By: #### 2 [id number] #### [facility] [address] [place] [address] Platelet mean volume (Bld) [Entitic vol] 8.8 fL Normal 6.4-10.8 [facility] Comment on above: Performed By: #### 2 [id number] #### [facility] [address] [place] [address] Platelets (Bld) [#/Vol] 134.0 E9/L Low 150.0-500.0 [facility] Comment on above: Performed By: #### 2 [id number] #### [facility] [address] [place] [address] RBC (Bld) [#/Vol] 4.3 E12/L Normal 4.3-5.9 [facility] Comment on above: Performed By: #### 2 [id number] #### [facility] [address] [place] [address] WBC corrected for nucl RBC Auto (Bld) [#/Vol] 4.2 E9/L Normal 4.0-11.0 [facility] Comment on above: Performed By: #### 2 [id number] #### [facility] [address] [place] [address] CHEMISTRYOrdered By: SYSTEM SYSTEM on 11-27-2023 Amphetamines Screen method >1000 ng/mL Ql (U) POSITIVE 8, 9 *ABN* (11/27/23 4:36 PM) Invalid Interpretation Code NEGATIVE [facility] Comment on above: Result Comment: No C onfirmation Requested by Physician Result verified by repeat analysis, Unconfirmed by alternate method Critical Result called to Michelle Benz by [email or web address] on 05/28/23 at 1722 Interpretive Data: N egative Cutoff: <1000 ng/mL Barbiturates Screen Ql (U) NEGATIVE 10 (11/27/23 4:36 PM) Normal NEGATIVE [facility] Comment on above: Interpretive Data: N egative Cutoff: <200 ng/mL Benzodiazepines Ql (U) POSITIVE 1, 2 *ABN* (11/27/23 4:36 PM) Invalid Interpretation Code NEGATIVE [facility] Comment on above: Result Comment: No C onfirmation Requested by Physician Result verified by repeat analysis, Unconfirmed by alternate method Critical Result called to Michelle Benz by [email or web address] on 05/28/23 at 1722 Interpretive Data: N egative Cutoff: <200 ng/mL Cannabinoids Screen Ql (U) NEGATIVE 7 (11/27/23 4:36 PM) Normal NEGATIVE [facility] Comment on above: Interpretive Data: N egative Cutoff: <50 ng/mL Cocaine Ql (U) NEGATIVE 3 (11/27/23 4:36 PM) Normal NEGATIVE [facility] Comment on above: Interpretive Data: N egative Cutoff: <300 ng/mL Opiates Screen Ql (U) NEGATIVE 5 (11/27/23 4:36 PM) Normal NEGATIVE [facility] Comment on above: Interpretive Data: N egative Cutoff: <300 ng/mL Phencyclidine Screen method >25 ng/mL Ql (U) NEGATIVE 6 (11/27/23 4:36 PM) Normal NEGATIVE [facility] Comment on above: Interpretive Data: N egative Cutoff: <25 ng/mL These drug screen results are to be used for medical (i.e., treatment) purposes only. Unconfirmed drug screening results must not be used for non-medical purposes (e.g., employment testing, legal testing). U Fentanyl NEGATIVE 12 (11/27/23 4:36 PM) Normal NEGATIVE [facility] Comment on above: Interpretive Data: N egative Cutoff: <5 ng/mL These drug screen results are to be used for medical (i.e., treatment) purposes only. Unconfirmed drug screening results must not be used for non-medical purposes (e.g., employment testing, legal testing). Acetaminoph Lvl microgram/mL Low 15.0 - 30.0 mcg/mL [facility] Albumin [Mass/Vol] 3.7 g/dL Normal 3.3 - 5.0 gm/dL [facility] Albumin/Globulin [Mass ratio] 1.0 {ratio} Low 1.1 - 2.2 [facility] ALP [Catalytic activity/Vol] 110 [iU]/d High 21 - 98 Int._Unit/L [facility] ALT No additional P-5'-P [Catalytic activity/Vol] 66 [iU]/d High 6 - 46 Int._Unit/L [facility] Anion gap [Moles/Vol] 14 mmol/L Normal 6 - 16 mEq/L R emisol Chem AST [Catalytic activity/Vol] 111 [iU]/d High 5 - 43 Int._Unit/L Remisol Chem Bilirubin [Mass/Vol] 1.3 mg/dL High 0.0 - 1 .1 mg/dL Remisol Chem Calcium [Mass/Vol] 9.5 mg/dL Normal 8.9 - 11. 1 mg/dL Remisol Chem Chloride [Moles/Vol] 102 mmol/L Normal 101 - 1 11 mmol/L Remisol Chem CO2 [Moles/Vol] 23 mmol/L Normal 21 - 31 mmol/L Remisol Chem Creatinine [Mass/Vol] 0.6 mg/dL Normal 0.5 - 1.3 mg/dL Remisol Chem eGFR 122 mL/min/1.73 m2 Normal >=59mL/mi n/1 .73 m2 Remisol Chem Ethanol Lvl mg/dL Normal <=11mg/dL Remisol Chem Globulin (S) [Mass/Vol] 3.7 g/dL Normal 1.4 - 4.0 gm/dL Remisol Chem Glucose [Mass/Vol] 97 mg/dL Normal 55 - 199 mg/dL Remisol Chem Potassium [Moles/Vol] 3.7 mmol/L Normal 3.5 - 5.3 mmol/L Remisol Chem Protein [Mass/Vol] 7.4 g/dL Normal 6.0 - 7.8 gm/dL Remisol Chem Sodium [Moles/Vol] 135 mmol/L Normal 135 - 145 mmol/L Remisol Chem Urea nitrogen [Mass/Vol] 11 mg/dL Normal 5 - 21 mg/dL Remisol Chem Urea nitrogen/Creatinine [Mass ratio] 18 mg/mg Normal 10 - 20 Remisol Chem CHEMISTRYOrdered By: Nikki ROP User on 11-27-2023 Glucose [Mass/Vol] 105 mg/dL High 55 - 99 mg/dL [facility] [place] POC Subsection Comment on above: Result Comment: Seema bo Meter POC Device SN [id number] Invalid Interpretation Code [facility] [place] POC Subsection POC User ID [id number] 1 Invalid Interpretation Code [facility] [place] POC Subsection POC Username HUA BETTS Invalid Interpretation Code [facility] [place] POC Subsection CMPon 11-27-2023 Albumin [Mass/Vol] 3.7 g/dL Normal 3.3-5.0 [facility] Comment on above: Performed By: #### 2 [id number] #### [facility] [address] [place] [address] Albumin/Globulin (S) [Mass conc ratio] 1.0 Low 1.1-2.2 [facility] Comment on above: Performed By: #### 2 [id number] #### [facility] [address] [place] [address] ALP [Catalytic activity/Vol] 110 Int._Unit/L High 21-98 [facility] Comment on above: Performed By: #### 2 [id number] #### [facility] [address] [place] [address] ALT No additional P-5'-P [Catalytic activity/Vol] 66 Int._Unit/L High 6-46 [facility] Comment on above: Performed By: #### 2 [id number] #### [facility] [address] [place] [address] Anion gap [Moles/Vol] 14 mmol/L Normal 6-16 [facility] Comment on above: Performed By: #### 2 [id number] #### [facility] [address] [place] [address] AST [Catalytic activity/Vol] 111 Int._Unit/L High 5-43 [facility] Comment on above: Performed By: #### 2 [id number] #### [facility] [address] [place] [address] Bilirubin [Mass/Vol] 1.3 mg/dL High 0.0-1.1 [facility] Comment on above: Performed By: #### 2 [id number] #### [facility] [address] [place] [address] Calcium [Mass/Vol] 9.5 mg/dL Normal 8.9-11.1 [facility] Comment on above: Performed By: #### 2 [id number] #### [facility] [address] [place] [address] Chloride [Moles/Vol] 102 mmol/L Normal 101-111 [facility] Comment on above: Performed By: #### 2 [id number] #### [facility] [address] [place] [address] CO2 [Moles/Vol] 23 mmol/L Normal 21-31 [facility] Comment on above: Performed By: #### 2 [id number] #### [facility] [address] [place] [address] Creatinine [Mass/Vol] 0.6 mg/dL Normal 0.5-1.3 [facility] Comment on above: Performed By: #### 2 [id number] #### [facility] [address] [place] [address] Globulin (S) [Mass/Vol] 3.7 g/dL Normal 1.4-4.0 [facility] Comment on above: Performed By: #### 2 [id number] #### [facility] [address] [place] [address] Glucose [Mass/Vol] 97 mg/dL Normal 55-199 [facility] Comment on above: Performed By: #### 2 [id number] #### [facility] [address] [place] [address] Potassium [Moles/Vol] 3.7 mmol/L Normal 3.5-5.3 [facility] Comment on above: Performed By: #### 2 [id number] #### [facility] [address] [place] [address] Protein [Mass/Vol] 7.4 g/dL Normal 6.0-7.8 [facility] Comment on above: Performed By: #### 2 [id number] #### [facility] [address] [place] [address] Sodium [Moles/Vol] 135 mmol/L Normal 135-145 [facility] Comment on above: Performed By: #### 2 [id number] #### [facility] [address] [place] [address] Urea nitrogen [Mass/Vol] 11 mg/dL Normal 5-21 [facility] Comment on above: Performed By: #### 2 [id number] #### [facility] [address] [place] [address] Urea nitrogen/Creatinine [Mass ratio] 18 No Units Normal 10-20 [facility] Comment on above: Performed By: #### 2 [id number] #### [facility] [address] [place] [address] Capillary Glucose POCon 11-11 Glucose [Mass/Vol] 105 mg/dL High 55-99 [facility] Comment on above: Result Comment: Seema bo Meter Performed By: #### 2 [id number] #### [facility] [address] [place] [address] ED Clinical Summaryon 2023 ED Clinical Summary ED Clinical Summary [address] [address] ED Clinical Summary Person Information Name: LYLE BAILEY [place] Age: 33 Years : 1990 Sex: Female Language: Brazilian PCP: Birgit Aiken MD Marital Status: Single Visit Id: Visit Reason: Psychiatric screening exam; Seizure; SEIZURE Speciality: Acuity: 3 Enc Type: Emergency Med Service: Emergency Arrival: 11/27/2023 09:57:23 Discharge: 11/27/2023 17:42:41 LOS: 000 07:45 Checkin: 11/27/2023 09:57:23 Checkout: 11/27/2023 17:42:41 Dispo Type: Home (Routine DC) EVENTS: Event Name Event Status Request Date/Time Start Date/Time Complete Date/Time Arrive Complete 11/27/2023 09:57:23 11/27/2023 09:57:23 11/27/2023 09:57:23 Document Home Meds Request 11/27/2023 09:57:23 Triage Complete 11/27/2023 09:57:23 11/27/2023 10:06:18 11/27/2023 10:06:18 Dr Exam Complete 11/27/2023 09:59:39 11/27/2023 09:59:39 11/27/2023 09:59:39 Registration Complete 11/27/2023 09:59:39 11/27/2023 09:59:48 11/27/2023 10:31:27 Bed Assign Complete 11/27/2023 09:59:48 11/27/2023 09:59:48 11/27/2023 09:59:48 RN Exam Complete 11/27/2023 09:59:48 11/27/2023 10:36:55 11/27/2023 10:36:55 Dr Exam Complete 11/27/2023 10:00:12 11/27/2023 10:00:12 11/27/2023 10:00:12 EKG Complete 11/27/2023 10:00:26 11/27/2023 10:54:33 Pending Labs Complete 11/27/2023 10:00:26 11/27/2023 17:24:05 Lab Complete 11/27/2023 10:00:26 11/27/2023 17:24:05 Urine Collect Complete 11/27/2023 10:00:26 11/27/2023 17:24:05 Pending Labs Complete 11/27/2023 10:05:42 11/27/2023 10:05:42 11/27/2023 10:05:42 Reg Complete Request 11/27/2023 10:31:27 Reg Bed Request Complete 11/27/2023 10:31:27 11/27/2023 10:31:27 11/27/2023 10:31:27 Pending Labs Complete 11/27/2023 10:40:52 11/27/2023 10:40:52 11/27/2023 11:03:52 Lab Complete 11/27/2023 10:40:52 11/27/2023 10:40:52 11/27/2023 11:03:52 Meds Admin Complete 11/27/2023 12:21:30 11/27/2023 13:00:40 Discharge Complete 11/27/2023 17:14:07 11/27/2023 17:42:46 11/27/2023 17:42:46 Transfer Complete 11/27/2023 17:42:46 11/27/2023 17:42:46 11/27/2023 17:42:46 ADDRESS: [address] [place] [phone] [facility] DOC NOTES: MEDICAL INFORMATION: Prescriptions Given: Medications [...] times a day. PATIENT EDUCATION INFORMATION: Instructions: Substance Use Disorder Follow up: With: Address: When: Birgit Aiken [address] [place] [address] Business (1) In 3 days 11/30/2023 DIAGNOSIS: Psychosis; Substance abuse Normal [facility] ED Note-Nursingon 11-27-2023 ED Note-Nursing ED Note-Nursing pt dc home with safety plan. pt's mother arrives at this time to take pt home. Normal [facility] ED Note-Physicianon 11-27-19 ED Note-Physician ED Note-Physician Basic Information Time Seen: Fabricio Gao PA-C 11/27/2023 09:59 Chief Complaint pt states she had seizure-like activity today. 2.5mg versed given by EMS on the way to ED. pt states she took 3 clonidine instead of 1 this AM on accident. Last drink sometime in last 12 hours. oriented on arrival. History of Present Illness 33-year-old female comes to the ED for evaluation of of seizure-like activity. She presents via EMS. Patient states she called EMS today because she was concerned about taking extra dose of medication. She took 3 clonidine this morning instead of 1. She states this was an accident. She denies any suicidal homicidal activity. She does have a history of substance abuse including alcohol, states she last drank yesterday. Per EMS she had an episode of seizure-like activity while being transported they treated her with a dose of Versed. She denies chest pain or shortness of breath. She denies abdominal pain. Denies any concern for . No trauma. Review of Systems A 10 point review of systems is negative except as noted above. Medical and Surgical History: Reviewed and noted Social history: Lives at home Tobacco: Denies Physical Exam Vitals & Measurements T: 36.6 ?C(Oral) HR: 79(Monitored) RR: 16 BP: 117/75 SpO2: 100% HT: 157.48 cm WT: 80.4 kg BMI: 32.42 Nurses notes and vital signs reviewed and patient is not hypoxic. General: Awake and alert Skin: Warm, dry. Head: Atraumatic. Neck: No JVD. Eye: Normal conjunctiva. Ears, Nose, Mouth, and Throat: Moist mucous membranes. Cardiovascular: Strong distal pulses. Chest wall: Respiratory: Respirations are nonlabored. Back: Normal range of motion. Musculoskeletal: Normal ROM with no gross deformity. Gastrointestinal: Soft nontender Urological: Neurological: Awake and alert. No focal deficits. Follows commands. Psychiatric: Cooperative. Medical Decision Making Shortly after arrival patient became increasingly belligerent. She was not following commands, was kicking staff members and was posing danger to herself and others. She started taking off her close and acting generally incoherent. She has a history of substance abuse and mental health disorders. She is treated with Haldol, Benadryl, Ativan. Laboratory studies are reviewed and noted. Patient is medically for psychiatric evaluation. Patient was evaluated by mental health. She is now back to her baseline. She is awake and alert. She is been up and ambulatory here. She is following commands. She is not suicidal. She is not homicidal. Ultimately she has extensive safety plan for discharge home with outpatient follow-up. Patient was encouraged to return to the ED if symptoms worsen or change. Assessment/Plan Psychosis (F29: Unspecified psychosis not due to a substance or known physiological condition) Substance abuse (F19.10: Other psychoactive substance abuse, uncomplicated) Orders: Acetaminophen Level Beta hCG Qual CBC w/ Auto Diff Comprehensive Metabolic Panel Drug Screen Urine ECG 12 Lead Adult eGFR Ethanol Level UA with Cult Rflx Medications Administered Given Ativan 2 mg/mL Injection, 2 mg, IntraMuscular diphenhydrAMINE 50 mg/mL Inj, 50 mg, IntraMuscular Haldol 5 mg/mL Injection, 5 mg, IntraMuscular Disposition Plan Patient Discharge Condition Disposition: Discharged home Condition: Improved and stable Counseled: Patient and/or family were counseled to workup, results, treatment plan and follow-up recommendations Discharge Prescription List Prescriptions No active prescription medications Follow-up With When Contact Information Birgit Aiken In 3 days 11/30/2023 EDT [address] [place] [address]- Business (1) Additional Instructions: Patient Education Substance Use Disorder Attestation I performed a substantive part of the MDM during the patient?s E/M visit. I personally made or approved the documented management plan and acknowledge its risk of complications. (Independent Interpretation) My (EKG/X-Ray/US/CT) interpretation as above. (Discussion) Management/test interpretation discussed with APC. This report was transcribed using voice recognition software. Every effort was made to ensure accuracy, however, inadvertently computerized players club representative mistakes may be present. Appropriate healthcare PPE was used in evaluating this patient. Problem List/Past Medical History Ongoing Alcohol abuse [...] mg= 2 tab(s), Oral, q6hr, PRN cloNIDine (more content not included)... Normal [facility] Comment on above: Result Comment: Elec tronically Signed By: Fabricio Gao PA-C\.br\Date and Time Signed: 11/27/23 17:44 EDT\.br\Electronically Co-Signed By: Isai Hall DO\.br\Date and Time Co-Signed: 11/27/23 19:26 EDT ED Patient Summaryon ED Patient Summary ED Patient Summary [place] [address] Patient Discharge Instructions Person Information Name: LYLE BAILEY Age: 33 Years Arrival Date: 11/27/2023 09:57:23 Discharge Diagnosis: Psychosis; Substance abuse Primary Care Physician: Birgit Aiken MD Provider Information Primary Provider: Isai Hall DO Advanced Bean Snapper:Fabricio Gao PA-C The exam and treatment you received in the Emergency Department were for an urgent problem and are not intended as complete care. It is important that you follow up with a doctor, nurse practitioner, or physician?s assistant plant manager for ongoing care. If your symptoms become worse or you do not improve as expected and you are unable to reach your usual health care provider, you should return to the Emergency Department. We are available 24 hours a day. LYLE BAILEY has been given the following list of patient education materials, prescriptions and follow-up instructions: Follow-up Instructions: With: Address: When: Birgit Aiken [address] [place] [address] Business (1) In 3 days 11/30/2023 In the event that this physician does not participate in your insurance network, please consult with your insurance company to find a nearby participating provider. Patient Education Materials: Substance Use Disorder A MESSAGE TO ALL PATIENTS REGARDING OPIOIDS PRESCRIPTION OPIOIDS: WHAT YOU NEED TO KNOW Prescription opioids can be used to help relieve ctukfjgr-qs-oaojoi pain and are often prescribed following a [...] be struggling with addiction, tell your health managed care liaison and ask for guidance or call [facility]?S National Help (more content not included)... Normal [facility] Ethanolon 11-27-2023 Ethanol Lvl <10 Normal <=11 [facility] Comment on above: Performed By: #### 2 [id number] #### [facility] [address] [place] [id number] HEMATOLOGYOrdered By: SYSTEM SYSTEM on 11-27-2023 Basophils/100 WBC (Bld) 0.8 % Normal 0.0 - 2.0 % Remisol Heme Basophils/Leukocytes Auto (Bld) [Pure # fraction] 0.0 E9/L Normal 0.0 - 0.2 E9/L Remisol Heme Eosinophils (Bld) [#/Vol] 0.1 E9/L Normal 0.0 - 0.5 E9/L Remisol Heme Eosinophils/100 WBC (Bld) 1.7 % Normal 0.0 - 8.0 % Remisol Heme Erythrocyte distribution width (RBC) [Ratio] 13.6 % Normal 10.9 - 14.2 % Remisol Heme Hematocrit (Bld) [Volume fraction] 41.0 % Normal 34.0 - 46.0 % Remisol Heme Hemoglobin (Bld) [Mass/Vol] 14.3 g/dL Normal 12.0 - 16.0 gm/dL Remisol Heme Lymphocytes (Bld) [#/Vol] 1.8 E9/L Normal 1.0 - 4.0 E9/L Remisol Heme Lymphocytes/100 WBC (Bld) 43.2 % Normal 14.0 - 50.0 % Remisol Heme MCH (RBC) [Entitic mass] 33.5 pg Normal 27.0 - 34.0 pg Remisol Heme MCHC (RBC) [Mass/Vol] 34.7 g/dL Normal 31.4 - 36.0 gm/dL Remisol Heme MCV (RBC) [Entitic vol] 96.3 fL Normal 80.0 - 100.0 fL Rem[facility] Heme Monocytes (Bld) [#/Vol] 0.3 E9/L Normal 0.2 - 1.0 E9/L Remisol Heme Monocytes/100 WBC (Bld) 7.6 % Normal 4.0 - 14.0 % Remisol Heme Neutrophils (Bld) [#/Vol] 2.0 E9/L Normal 2.0 - 7.5 E9/L Remisol Heme Neutrophils/100 WBC (Bld) 46.7 % Normal 36.0 - 75.0 % Remisol Heme Platelet mean volume (Bld) [Entitic vol] 8.8 fL Normal 6.4 - 10.8 fL Remisol Heme Platelets (Bld) [#/Vol] 134.0 E9/L Low 150.0 - 500.0 E9/L Remisol Heme RBC (Bld) [#/Vol] 4.3 E12/L Normal 4.3 - 5.9 E12/L Remisol Heme WBC corrected for nucl RBC Auto (Bld) [#/Vol] 4.2 E9/L Normal 4.0 - 11.0 E9/L Remisol Heme SEROLOGYOrdered By: Annie Lorenzo on 11-27-2023 Beta HCG ( test) Ql Negative (11/27/23 10:33 AM) Normal [facility] [place] Man Sero U Drug Screenon 11-27-2023 Amphetamines Screen method >1000 ng/mL Ql (U) Positive Abnormal NEGATIVE [facility] Comment on above: Result Comment: No C onfirmation Requested by Physician Result verified by repeat analysis, Unconfirmed by alternate method Critical Result called to Michelle Benz by [facility] on 05/28/23 at 1722 Negative Cutoff: <1000 ng/mL Performed By: #### 2 [id number] #### [facility] [address] [place] [address] Barbiturates Screen Ql (U) Negative Normal NEGATIVE [facility] Comment on above: Result Comment: Nega tive Cutoff: <200 ng/mL Performed By: #### 2 [id number] #### [facility] [address] [place] [address] Benzodiazepines Ql (U) Positive Abnormal NEGATIVE [facility] Comment on above: Result Comment: No C onfirmation Requested by Physician Result verified by repeat analysis, Unconfirmed by alternate method Critical Result called to Michelle Benz by [facility] on 05/28/23 at 1722 Negative Cutoff: <200 ng/mL Performed By: #### 2 [id number] #### [facility] [address] [place] [address] Cannabinoids Screen Ql (U) Negative Normal NEGATIVE [facility] Comment on above: Result Comment: Nega tive Cutoff: <50 ng/mL Performed By: #### 2 [id number] #### [facility] [address] [place] [address] Cocaine Ql (U) Negative Normal NEGATIVE [facility] Comment on above: Result Comment: Nega tive Cutoff: <300 ng/mL Performed By: #### 2 [id number] #### [facility] [address] [place] [address] Opiates Screen Ql (U) Negative Normal NEGATIVE [facility] Comment on above: Result Comment: Nega tive Cutoff: <300 ng/mL Performed By: #### 2 [id number] #### [facility] [address] [place] [address] Phencyclidine Screen method >25 ng/mL Ql (U) Negative Normal NEGATIVE [facility] Comment on above: Result Comment: Nega tive Cutoff: <25 ng/mL These drug screen results are to be used for medical (i.e., treatment) purposes only. Unconfirmed drug screening results must not be used for non-medical purposes (e.g., employment testing, legal testing). Performed By: #### 2 [id number] #### [facility] [address] [place] [address] U Fentanyl Negative Normal NEGATIVE [facility] Comment on above: Result Comment: Nega tive Cutoff: <5 ng/mL These drug screen results are to be used for medical (i.e., treatment) purposes only. Unconfirmed drug screening results must not be used for non-medical purposes (e.g., employment testing, legal testing). Performed By: #### 2 [id number] #### [facility] [address] [place] [address] UA with Cult Rflxon 11-27-19 24 Bilirubin Ql (U) Negative Normal Negative [facility] Comment on above: Performed By: #### 4 [id number] #### [facility] [address] [place] [address] Clarity (U) Clear Normal Clear [facility] Comment on above: Performed By: #### 4 [id number] #### [facility] [address] [place] [address] Color (U) Yellow Normal Yellow [facility] Comment on above: Result Comment: Micr oscopic readings are only performed on those samples that meet specific criteria set forth by [facility]. Performed By: #### 4 [id number] #### [facility] [address] [place] [address] Glucose Ql (U) Negative Normal Negative [facility] Comment on above: Performed By: #### 4 [id number] #### [facility] [address] [place] [address] Hemoglobin Auto test strip (U) [Mass/Vol] Negative Normal Negative [facility] Comment on above: Performed By: #### 4 [id number] #### [facility] [address] [place] [address] Ketones Auto test strip Ql (U) 1+ mg/dL Abnormal Negative [facility] Comment on above: Performed By: #### 4 [id number] #### [facility] [address] [place] [address] Leukocyte esterase Auto test strip Ql (U) Negative Normal Negative [facility] Comment on above: Performed By: #### 4 [id number] #### [facility] [address] [place] [address] Nitrite Auto test strip Ql (U) Negative Normal Negative [facility] Comment on above: Performed By: #### 4 [id number] #### [facility] [address] [place] [address] pH (U) 6.5 [pH] Invalid Interpretation Code 5.0-9.0 [facility] Comment on above: Performed By: #### 4 [id number] #### [facility] [address] [place] [address] Protein Ql (U) Negative Normal Negative [facility] Comment on above: Performed By: #### 4 [id number] #### [facility] [address] [place] [address] Specific gravity (U) [Rel density] 1.020 Invalid Interpretation Code 1.005-1.030 [facility] Comment on above: Performed By: #### 4 [id number] #### [facility] [address] [place] [address] Urobilinogen (U) [Mass/Vol] 2 mg/dL Abnormal Negative [facility] Comment on above: Performed By: #### 4 [id number] #### [facility] [address] [place] [address] Type of Urine collection method Clean Catch Normal [facility] Comment on above: Performed By: #### 4 [id number] #### [facility] [address] [place] [address] URINALYSISOrdered By: SYSTEM SYSTEM on 11-27-2023 Bilirubin Ql (U) Negative Normal Negativemg/ d L [facility] UA Auto SS Clarity (U) Clear (11/27/23 4:36 PM) Normal Clear [facility] UA Auto SS Color (U) Yellow 4 (11/27/23 4:36 PM) Normal Yellow [facility] UA Auto SS Comment on above: Interpretive Data: M icroscopic readings are only performed on those samples that meet specific criteria set forth by [facility]. Glucose Ql (U) Negative Normal Negativemg/d L [facility] UA Auto SS Hemoglobin Auto test strip (U) [Mass/Vol] Negative Normal Negativemg/d L [facility] UA Auto SS Ketones Auto test strip Ql (U) 1+ mg/dL Invalid Interpretation Code Negativemg/d L [facility] UA Auto SS Leukocyte esterase Auto test strip Ql (U) Negative Normal NegativeLeu/ uL [facility] UA Auto SS Nitrite Auto test strip Ql (U) Negative Normal Negativemg/d L [facility] UA Auto SS pH (U) 6.5 *NA* (11/27/23 4:36 PM) Invalid Interpretation Code 5.0 - 9.0 [facility] UA Auto SS Protein Ql (U) Negative Normal Negativemg/d L [facility] UA Auto SS Specific gravity (U) [Rel density] 1.020 *NA* (11/27/23 4:36 PM) Invalid Interpretation Code 1.005 - 1.030 [facility] UA Auto SS Urobilinogen (U) [Mass/Vol] 2 mg/dL Invalid Interpretation Code Negativemg/d L [facility] UA Auto SS URINALYSISOrdered By: Fabricio Gao on 11-27-2023 UA Spec Desc Clean Catch (11/27/23 4:36 PM) Normal [facility] UA Auto SS eGFRon 11-27-2023 eGFR 122 mL/min/1.73 m2 Normal >=59 [facility] Comment on above: Performed By: #### 1 [id number] #### [facility] [address] [place] [id number] Basophils Auto (Bld) [#/Vol] Ordered By: Kanchan Sanchez on 11-26-2023 Basophils (Bld) [#/Vol] Automated basophil count 0.0-0.2 [facility] Basophils/100 WBC Auto (Bld) Ordered By: Imad Asaad on 11-26-2023 Basophils/100 WBC (Bld) Automated basophil % . [facility] C reactive protein [Mass/vol ume] in Serum or PlasmaOrdered By: Imad Asaad on 11-26-2023 CRP [Mass/Vol] C reactive protein [Mass/volume] in Serum or Plasma 0.0-0.5 [facility] C-Reactive Proteinon 024 CRP [Mass/Vol] mg/L Normal 0.0-0.5 [facility] [place] [facility] Comment on above: Performed By: #### H BSAB, HBSAG, HBV PCR, HBCAB, HCV RX PCR, HAABT #### [facility] , #### CBC, TSH3 wRFLX, CRP #### [address] Complete Blood Count Auto Di ffon 11-26-2023 Basophils (Bld) [#/Vol] 0.0 10*3/uL Normal 0.0-0.2 [facility] Comment on above: Result Comment: PERF ORMED BY: [place] [address] PATHOLOGIST COMPUTER AIDED DESIGN TECHNICIAN LEE CARDOSO M.D. Performed By: #### H BSAB, HBSAG, HBV PCR, HBCAB, HCV RX PCR, HAABT #### [facility] , #### CBC, TSH3 wRFLX, CRP #### [address] Basophils/100 WBC (Bld) 0.8 % Normal . [facility] Comment on above: Performed By: #### H BSAB, HBSAG, HBV PCR, HBCAB, HCV RX PCR, HAABT #### [facility] , #### CBC, TSH3 wRFLX, CRP #### [address] Eosinophils (Bld) [#/Vol] 0.0 10*3/uL Normal 0.0-0.45 [facility] Comment on above: Performed By: #### H BSAB, HBSAG, HBV PCR, HBCAB, HCV RX PCR, HAABT #### [facility] , #### CBC, TSH3 wRFLX, CRP #### [address] Eosinophils/100 WBC (Bld) 0.9 % Normal . [facility] Comment on above: Performed By: #### H BSAB, HBSAG, HBV PCR, HBCAB, HCV RX PCR, HAABT #### [facility] , #### CBC, TSH3 wRFLX, CRP #### [address] Erythrocyte distribution width (RBC) [Ratio] 13.7 % Normal 11.9-15.3 [facility] Comment on above: Performed By: #### H BSAB, HBSAG, HBV PCR, HBCAB, HCV RX PCR, HAABT #### [facility] , #### CBC, TSH3 wRFLX, CRP #### [address] Hematocrit (Bld) [Volume fraction] 42.7 % Normal 34.0-46.4 [facility] Comment on above: Performed By: #### H BSAB, HBSAG, HBV PCR, HBCAB, HCV RX PCR, HAABT #### [facility] , #### CBC, TSH3 wRFLX, CRP #### [address] Hemoglobin (Bld) [Mass/Vol] 14.8 g/dL Normal 11.8-15.4 [facility] Comment on above: Performed By: #### H BSAB, HBSAG, HBV PCR, HBCAB, HCV RX PCR, HAABT #### [facility] , #### CBC, TSH3 wRFLX, CRP #### [address] Lymphocytes (Bld) [#/Vol] 1.8 10*3/uL Normal 1.00-4.8 [facility] Comment on above: Performed By: #### H BSAB, HBSAG, HBV PCR, HBCAB, HCV RX PCR, HAABT #### [facility] , #### CBC, TSH3 wRFLX, CRP #### [address] Lymphocytes/100 WBC (Bld) 36.4 % Normal . [facility] Comment on above: Performed By: #### H BSAB, HBSAG, HBV PCR, HBCAB, HCV RX PCR, HAABT #### [facility] , #### CBC, TSH3 wRFLX, CRP #### [address] MCH (RBC) [Entitic mass] 33.2 pg Normal 24.7-34.3 [facility] Comment on above: Performed By: #### H BSAB, HBSAG, HBV PCR, HBCAB, HCV RX PCR, HAABT #### [facility] , #### CBC, TSH3 wRFLX, CRP #### [address] MCV (RBC) [Entitic vol] 95.6 fL Normal 80-100 [facility] Comment on above: Performed By: #### H BSAB, HBSAG, HBV PCR, HBCAB, HCV RX PCR, HAABT #### [facility] , #### CBC, TSH3 wRFLX, CRP #### [address] Mean Corpuscular HGB Conc 34.7 g/dL Normal 32.0-35.0 [facility] Comment on above: Performed By: #### H BSAB, HBSAG, HBV PCR, HBCAB, HCV RX PCR, HAABT #### [facility] , #### CBC, TSH3 wRFLX, CRP #### [address] Monocytes (Bld) [#/Vol] 0.4 10*3/uL Normal 0.0-0.8 [facility] Comment on above: Performed By: #### H BSAB, HBSAG, HBV PCR, HBCAB, HCV RX PCR, HAABT #### [facility] , #### CBC, TSH3 wRFLX, CRP #### [place] [address] [place] Monocytes/100 WBC (Bld) 8.5 % Normal . [facility] Comment on above: Performed By: #### H BSAB, HBSAG, HBV PCR, HBCAB, HCV RX PCR, HAABT #### [facility] , #### CBC, TSH3 wRFLX, CRP #### [place] [address] [place] Neutrophils (Bld) [#/Vol] 2.6 10*3/uL Normal 1.8-7.7 [facility] Comment on above: Performed By: #### H BSAB, HBSAG, HBV PCR, HBCAB, HCV RX PCR, HAABT #### [facility] , #### CBC, TSH3 wRFLX, CRP #### [place] [address] [place] Neutrophils/100 WBC (Bld) 53.4 % Normal . [facility] Comment on above: Performed By: #### H BSAB, HBSAG, HBV PCR, HBCAB, HCV RX PCR, HAABT #### [facility] , #### CBC, TSH3 wRFLX, CRP #### [place] [address] [place] NRBC% 0.3 /100{WBC} Normal 0-0.5 [facility] Comment on above: Performed By: #### H BSAB, HBSAG, HBV PCR, HBCAB, HCV RX PCR, HAABT #### [facility] , #### CBC, TSH3 wRFLX, CRP #### [address] Platelet mean volume (Bld) [Entitic vol] 9.2 fL Normal 6.3-10.7 [facility] Comment on above: Performed By: #### H BSAB, HBSAG, HBV PCR, HBCAB, HCV RX PCR, HAABT #### [facility] , #### CBC, TSH3 wRFLX, CRP #### [address] Platelets (Bld) [#/Vol] 140 10*3/uL Low 150-450 [facility] Comment on above: Performed By: #### H BSAB, HBSAG, HBV PCR, HBCAB, HCV RX PCR, HAABT #### [facility] , #### CBC, TSH3 wRFLX, CRP #### [address] RBC (Bld) [#/Vol] 4.47 10*6/uL Normal 3.60-5.00 [facility] Comment on above: Performed By: #### H BSAB, HBSAG, HBV PCR, HBCAB, HCV RX PCR, HAABT #### [facility] , #### CBC, TSH3 wRFLX, CRP #### [address] WBC (Bld) [#/Vol] 4.9 10*3/uL Normal 3.8-11.6 [facility] Comment on above: Performed By: #### H BSAB, HBSAG, HBV PCR, HBCAB, HCV RX PCR, HAABT #### [facility] , #### CBC, TSH3 wRFLX, CRP #### [facility] [address] [place] [address] Diagnostic impression interp retation by molecular genetics method narrativeOrdered By: Kanchan Sanchez on 11-26-2023 Diagnostic impression Molgen Adan (Unsp spec) [Interp] Diagnostic impression [Interpretation] in Specimen Narrative . [facility] Comment on above: Positive HCV antibod y screen with the presence of HCV RNAis consistent with active infection.Performed at: - [facility] [id number] Director: Adis Bhatia PhD, Phone: [phone] at: [facility] [address] [id number] Director: Gunnar Shanks MD, Phone: [phone] Eosinophils Auto (Bld) [#/Vo l]Ordered By: Imad Asaad on 11-26-2023 Eosinophils (Bld) [#/Vol] Automated eosinophil count 0.0-0.45 [facility] Eosinophils/100 WBC Auto (Bl d)Ordered By: ad Asaad on 11-26-2023 Eosinophils/100 WBC (Bld) Automated eosinophil % . [facility] Erythrocyte distribution wid th Auto (RBC) [Ratio]Ordered By: ad Asaad on 11-26-2023 Erythrocyte distribution width (RBC) [Ratio] Erythrocyte distribution width [Ratio] by Automated count 11.9-15.3 [facility] Hematocrit Auto (Bld) [Volum e fraction]Ordered By: ad Asaad on 11-26-2023 Hematocrit (Bld) [Volume fraction] Hematocrit [Volume Fraction] of Blood by Automated count 34.0-46.4 [facility] Hemoglobin [Mass/volume] in BloodOrdered By: [facility] on 11-26-2023 Hemoglobin (Bld) [Mass/Vol] Hemoglobin [Mass/volume] in Blood 11.8-15.4 [facility] Hep B Real-Time PCR, Quanton 11-26-2023 HBV As IU/mL Not detected Normal . [facility] [place] [facility] Comment on above: Performed By: #### H BSAB, HBSAG, HBV PCR, HBCAB, HCV RX PCR, HAABT #### [facility] , #### CBC, TSH3 wRFLX, CRP #### [facility] [address] Log10 HBV (As IU/mL) Normal . [facility] Comment on above: Result Comment: Resu lt Units: log10 IU/mL Unable to calculate result since non-numeric result obtained for component test. Performed By: #### H BSAB, HBSAG, HBV PCR, HBCAB, HCV RX PCR, HAABT #### [facility] , #### CBC, TSH3 wRFLX, CRP #### [address] Test Information: Comment Normal . [facility] Comment on above: Result Comment: The reportable range for this assay is 10 IU/mL to 1 billion IU/mL. Performed at: [address] [id number] Shop Repairer: Gunnar Shanks MD, Phone: [phone] PERFORMED BY: [place] [address] PATHOLOGIST COMPUTER AIDED DESIGN TECHNICIAN LEE CARDOSO M.D. Performed By: #### H BSAB, HBSAG, HBV PCR, HBCAB, HCV RX PCR, HAABT #### [facility] , #### CBC, TSH3 wRFLX, CRP #### [address] Result Comment: The quantitative range of this assay is 15 IU/mL to 100 million IU/mL. Hep C Ab wRfx to Qnt PCRon 1 HCV Log10 5.605 Normal . [facility] Comment on above: Result Comment: Resu lt Units: log10 IU/mL Performed By: #### H BSAB, HBSAG, HBV PCR, HBCAB, HCV RX PCR, HAABT #### [facility] , #### CBC, TSH3 wRFLX, CRP #### [address] Hepatitis C Quantitation [id number] Normal . [facility] Comment on above: Performed By: #### H BSAB, HBSAG, HBV PCR, HBCAB, HCV RX PCR, HAABT #### [facility] , #### CBC, TSH3 wRFLX, CRP #### [facility] [address] Hepatitis C Virus Antibody Reactive Critically abnormal Non Reactive [facility] Comment on above: Performed By: #### H BSAB, HBSAG, HBV PCR, HBCAB, HCV RX PCR, HAABT #### [facility] , #### CBC, TSH3 wRFLX, CRP #### [facility] [address] [place] [address] Interpretation Comment Normal . [facility] [place] [facility] Comment on above: Result Comment: Posi tive HCV antibody screen with the presence of HCV RNA is consistent with active infection. Performed at: [address] [id number] Shop Repairer: Adis Bhatia PhD, Phone: [phone] Performed at: [address] [id number] Shop Repairer: Gunnar Shanks MD, Phone: [phone] Performed By: #### H BSAB, HBSAG, HBV PCR, HBCAB, HCV RX PCR, HAABT #### [facility] , #### CBC, TSH3 wRFLX, CRP #### [address] Hepatitis A Antibody Totalon 11-26-2023 Hepatitis A Antibody Total Negative Normal Negative [facility] Comment on above: Result Comment: Comm ent: The HAV total antibody assay detects both IgG and IgM but does not differentiate between them. A negative result suggests susceptibility to infection. A positive result could be due to vaccination, previously resolved infection or active infection. Testing for HAV IgM should be performed if active HAV infection is suspected. [facility] offers profiles that will automatically reflex positive HAV total antibody results to IgM (e.g., panel #[id number] HAV Antibody w/ Rfx). Performed at: [address] [id number] Shop Repairer: Adis Bhatia PhD, Phone: [phone] Performed By: #### H BSAB, HBSAG, HBV PCR, HBCAB, HCV RX PCR, HAABT #### [facility] , #### CBC, TSH3 wRFLX, CRP #### [facility] [address] [place] [address] [place] Hepatitis A virus Ab [Presen ce] in Serum by ImmunoassayOrdered By: Kanchan Sanchez on 11-26-2023 HAV Ab IA Ql (S) Hepatitis A virus Ab [Presence] in Serum by Immunoassay Negative [facility] Comment on above: Comment: The HAV tot al antibody assay detects both IgG andIgM but does not differentiate between them. A negativeresult suggests susceptibility to infection. A positiveresult could be due to vaccination, previously resolvedinfection or active infection. Testing for HAV IgM shouldbe performed if active HAV infection is suspected. [facility] that will automatically reflex positive HAVtotal antibody results to IgM (e.g., panel #[id number] HAVAntibody w/ Rfx).Performed at: [facility] [address] [id number] Director: Adis Bhatia PhD, Phone: [phone] Hepatitis B Core Antibodyon 11-26-2023 Hepatitis B Core Antibody Positive Critically abnormal Negative [facility] Comment on above: Performed By: #### U HCG, UA, URDS #### [address] Hepatitis B Surface Antibody on 11-26-2023 Hepatitis B Surface Antibody Non-Reactive Normal . [facility] Comment on above: Result Comment: Non Reactive: Not immune to HBV infection. Equivocal: Unable to determine if anti-HBs is present at levels consistent with immunity. Reactive: Anti-HBs concentration detected at greater than 10 mIU/mL. Individual is considered to be immune to infection with HBV. Performed By: #### H BSAB, HBSAG, HBV PCR, HBCAB, HCV RX PCR, HAABT #### [facility] , #### CBC, TSH3 wRFLX, CRP #### [facility] [address] [place] [id number] [facility] Hepatitis B Surface Antigeno n 11-26-2023 HBsAg Screen Negative Normal Negative [facility] Comment on above: Result Comment: PERF ORMED BY: [place] [address] PATHOLOGIST COMPUTER AIDED DESIGN TECHNICIAN LEE CARDOSO M.D. Performed By: #### U HCG, UA, URDS #### [address] Hepatitis B virus core antib hans assayOrdered By: pepe Ruelas on 11-26-2023 Hepatitis B Core Total Antibody Positive Abnormal Negative [facility] Hepatitis C virus IgG Ab [Pr esence] in Serum or Plasma by ImmunoassayOrdered By: [facility] on 11-26-2023 HCV IgG IA Ql Hepatitis C virus Ig G Ab [Presence] in Serum or Plasma by Immunoassay Abnormal Non Reactive [facility] Hepatitis C virus RNA [Units /volume] (viral load) in Serum or Plasma by MOISES with probOrdered By: pepe Ruelas on 11-26-2023 HCV RNA MOISES+probe Qn Hepatitis C virus R NA [Units/volume] (viral load) in Serum or Plasma by MOISES with prob . [facility] Comment on above: HCV RNA detectedHCV RNA viral loads >/= 25 IU/mL indicate current HCVinfection. Hepatitis C virus RNA [log u nits/volume] (viral load) in Serum or Plasma by MOISES withOrdered By: pepe [facility] on 11-26-2023 HCV RNA MOISES+probe [Log units/Vol] Hepatitis C virus RNA [log units/volume] (viral load) in Serum or Plasma by MOISES with . [facility] Comment on above: Result Units: log10 IU/mL Leukocytes [#/volume] correc jose for nucleated erythrocytes in Blood by Automated counOrdered By: pepe Ruelas on 11-26-2023 WBC corrected for nucl RBC Auto (Bld) [#/Vol] Leukocytes [#/volume] corrected for nucleated erythrocytes in Blood by Automated coun 3.8-11.6 [facility] Lymphocytes Auto (Bld) [#/Vo l]Ordered By: pepe [facility] on 11-26-2023 Lymphocytes (Bld) [#/Vol] Lymphocytes [#/volume] in Blood by Automated count 1.00-4.8 [facility] Lymphocytes/100 WBC Auto (Bl d)Ordered By: ad Asaad on 11-26-2023 Lymphocytes/100 WBC (Bld) Lymphocytes/100 leukocytes in Blood by Automated count . [facility] MCH Auto (RBC) [Entitic mass ]Ordered By: Imad Asaad on 11-26-2023 MCH (RBC) [Entitic mass] MCH [Entitic mass] by Automated count 24.7-34.3 [facility] MCHC Auto (RBC) [Mass/Vol]Or dered By: Imad Asaad on 11-26-2023 MCHC (RBC) [Mass/Vol] MCHC [Mass/volume] by Automated count 32.0-35.0 [facility] MCV Auto (RBC) [Entitic vol] Ordered By: Imad Asaad on 11-26-2023 MCV (RBC) [Entitic vol] MCV [Entitic volume] by Automated count 80-100 [facility] Monocytes Auto (Bld) [#/Vol] Ordered By: Imad Asaad on 11-26-2023 Monocytes (Bld) [#/Vol] Automated blood monocyte count 0.0-0.8 [facility] Monocytes/100 WBC Auto (Bld) Ordered By: Imad Asaad on 11-26-2023 Monocytes/100 WBC (Bld) Automated monocyte % . [facility] Neutrophils Auto (Bld) [#/Vo l]Ordered By: Imad Asaad on 11-26-2023 Neutrophils (Bld) [#/Vol] Neutrophils [#/volume] in Blood by Automated count 1.8-7.7 [facility] Neutrophils/100 WBC Auto (Bl d)Ordered By: Imad Asaad on 11-26-2023 Neutrophils/100 WBC (Bld) Automated neutrophil % . [facility] No Panel InformationOrdered By: Imad Asaad on 11-26-2023 Hepatitis B DNA Test Information Comment . [facility] Comment on above: The reportable range for this assay is 10 IU/mL to 1billion IU/mL.Performed at: [address] [id number] Director: Gunnar Shanks MD, Phone: [phone] Hepatitis C RNA Qnt (PCR) Test Info Comment . [facility] Comment on above: The quantitative ran ge of this assay is 15 IU/mL to 100million IU/mL. Hepatitis Comment Comment . [facility] Comment on above: The quantitative ran ge of this assay is 15 IU/mL to 100million IU/mL.Performed at: [place] [address] [place], [place] [id number] Director: Gunnar Shanks MD, Phone: [phone] Nucleated erythrocytes [Pres ence] in Blood by Automated countOrdered By: Imad Asaad on 11-26-2023 Nucleated RBC Auto Ql (Bld) Nucleated erythrocytes [Presence] in Blood by Automated count 0-0.5 [facility] Platelet mean volume Auto (B ld) [Entitic vol]Ordered By: Imad Asaad on 11-26-2023 Platelet mean volume (Bld) [Entitic vol] Platelet mean volume [Entitic volume] in Blood by Automated count 6.3-10.7 [facility] Platelets Auto (Bld) [#/Vol] Ordered By: Imad Asaad on 11-26-2023 Platelets (Bld) [#/Vol] Platelets [#/volume] in Blood by Automated count Low 150-450 [facility] RBC Auto (Bld) [#/Vol]Ordere d By: Imad Asaad on 11-26-2023 RBC (Bld) [#/Vol] Erythrocytes [#/volu me] in Blood by Automated count 3.60-5.00 [facility] Serum hepatitis B virus surf lady antibody detectionOrdered By: Imad Asaad on 11-26-2023 HBV surface Ab Ql (S) Hepatitis B virus surface Ab [Presence] in Serum . [facility] Comment on above: Non Reactive: Not im mune to HBV infection. Equivocal: Unable to determine if anti-HBs is present at levels consistent with immunity. Reactive: Anti-HBs concentration detected at greater than 10 mIU/mL. Individual is considered to be immune to infection with HBV. Serum or plasma hepatitis B virus DNA measurement (units/volume) (viral load) by probOrdered By: Imad Asaad on 11-26-2023 HBV DNA MOISES+probe Qn Serum or plasma hepatitis B virus DNA measurement (units/volume) (viral load) by prob . [facility] Serum or plasma hepatitis B virus DNA viral load by probe and target amplification meOrdered By: Imad Asaad on 11-26-2023 HBV DNA MOISES+probe [#/Vol] Serum or plasma hepatitis B virus DNA viral load by probe and target amplification [facility] HBV DNA MOISES+probe [Log units/Vol] Serum or plasma hepatitis B virus DNA viral load by probe and target amplification me . [facility] Comment on above: Result Units: log10 IU/mLUnable to calculate result since non-numeric resultobtained for component test. Serum or plasma hepatitis B virus surface antigen detection by immunoassayOrdered By: ad Asa on 11-26-2023 HBV surface Ag IA Ql Hepatitis B virus surface Ag [Presence] in Serum or Plasma by Immunoassay Negative [facility] Thyroid Stim Hormone w/Rflxo n 11-26-2023 Thyroid Stim Hormone w/Rflx 4.45 u[iU]/mL Normal 0.45-5.33 [facility] Comment on above: Result Comment: PERF ORMED BY: [place] [address] PATHOLOGIST COMPUTER AIDED DESIGN TECHNICIAN LEE CARDOSO M.D. Performed By: #### H BSAB, HBSAG, HBV PCR, HBCAB, HCV RX PCR, HAABT #### [facility] , #### CBC, TSH3 wRFLX, CRP #### [address] Thyrotropin [Units/volume] i n Serum or PlasmaOrdered By: ad [facility] on 11-26-2023 TSH Qn Thyrotropin [Units/volume] in Serum or Plasma 0.45-5.33 [facility] WBC Auto (Bld) [#/Vol]Ordere d By: ad Asaad on 11-26-2023 WBC (Bld) [#/Vol] Leukocytes [#/volume ] in Blood by Automated count 3.8-11.6 [facility] CBCon 09-30-2023 Erythrocyte distribution width (RBC) [Ratio] 12.1 % 11.8 - 14.4 % [facility] Hematocrit (Bld) [Volume fraction] 40.1 % 36.3 - 47.1 % [facility] Hemoglobin (Bld) [Mass/Vol] 14.0 g/dL 11.9 - 15.1 g/dL [facility] Interpretation and review of laboratory results Abnormal [facility] MCH (RBC) [Entitic mass] 34.7 pg High 25.2 - 33.5 pg [facility] MCHC (RBC) [Mass/Vol] 34.9 g/dL High 28.4 - 34.8 g/dL [facility] MCV (RBC) [Entitic vol] 99.5 fL 82.6 - 102.9 fL [facility] Nucleated RBC/100 WBC (Bld) [Ratio] 0.0 % 0.0 per 100 WBC [facility] Platelet mean volume (Bld) [Entitic vol] 10.5 fL 8.1 - 13.5 fL [facility] Platelets (Bld) [#/Vol] 198 10*3/uL [facility] RBC (Bld) [#/Vol] 4.03 10*6/uL 3.95 - 5.1 1 m/uL [facility] WBC other (Bld) [#/Vol] 5.3 [facility] Erythrocyte distribution width (RBC) [Ratio] 12.1 % Normal 11.8-14.4 [facility] Comment on above: Performed By: #### C DASHAWN, CP #### [address] [place] [address] Shop Repairer: Crescencio Fortune MD Hematocrit (Bld) [Volume fraction] 40.1 % Normal 36.3-47.1 [facility] Comment on above: Performed By: #### C DASHAWN, CP #### [facility] [address] [place] [address] [place] [address] Shop Repairer: Crescencio Fortune MD Hemoglobin (Bld) [Mass/Vol] 14.0 g/dL Normal 11.9-15.1 [facility] Comment on above: Performed By: #### C DASHAWN, CP #### [facility] [address] [place] [address] [place], [place] [id number] Shop Repairer: Crescencio Fortune MD MCH (RBC) [Entitic mass] 34.7 pg High 25.2-33.5 [facility] Comment on above: Performed By: #### C BC, CP #### [address] [place], [place] [id number] Shop Repairer: Crescencio Fortune MD MCHC (RBC) [Mass/Vol] 34.9 g/dL High 28.4-34.8 [facility] Comment on above: Performed By: #### C DASHAWN, CP #### [address] [place] [id number] Shop Repairer: Crescencio Fortune MD MCV (RBC) [Entitic vol] 99.5 fL Normal 82.6-102.9 [facility] Comment on above: Performed By: #### C DASHAWN, CP #### [address] [place] [id number] Shop Repairer: Crescencio Fortune MD NRBC Automated 0.0 per 100 WBC Normal 0.0 [facility] Comment on above: Performed By: #### C DASHAWN, CP #### [address] [place], [place] [id number] Shop Repairer: Crescencio Fortune MD Platelet mean volume (Bld) [Entitic vol] 10.5 fL Normal 8.1-13.5 [facility] Comment on above: Performed By: #### C DASHAWN, CP #### [address] [place], [place] [id number] Shop Repairer: Crescencio Fortune MD Platelets (Bld) [#/Vol] 198 10*3/uL Normal 138-453 [facility] Comment on above: Performed By: #### C DASHAWN, CP #### [address] [place], [facility] Shop Repairer: Crescencio Fortune MD RBC (Bld) [#/Vol] 4.03 10*6/uL Normal 3.95-5.11 [facility] Comment on above: Performed By: #### C BC, CP #### [facility] [address] [place], [place] [id number] Shop Repairer: Crescencio Fortune MD WBC (Bld) [#/Vol] 5.3 10*3/uL Normal 3.5-11.3 [facility] Comment on above: Performed By: #### C DASHAWN, CP #### [facility] [address] [place] [id number] Shop Repairer: Crescencio Fortune MD Comp Metabolic Profon 2023 AST [Catalytic activity/Vol] 107 U/L High <32 [facility] Comment on above: Performed By: #### C DASHAWN, CP #### [facility] [address] [place] [address] [place] [address] Shop Repairer: Crescencio Fortune MD Albumin [Mass/Vol] 3.8 g/dL Normal 3.5-5.2 [facility] Comment on above: Performed By: #### C DASHAWN, CP #### [facility] [address] [place], [place] [id number] Shop Repairer: Crescencio Fortune MD Albumin/Glob Ratio 1.1 Normal 1.0-2.5 [facility] Comment on above: Performed By: #### C DASHAWN, CP #### [facility] [address] [place] [address] Shop Repairer: Crescencio Fortune MD Alkaline Phos 96 U/L Normal 35-104 [facility] Comment on above: Performed By: #### C DASHAWN, CP #### [facility] [address] [place], [place] [id number] Shop Repairer: Crescencio Fortune MD ALT [Catalytic activity/Vol] 104 U/L High 5-33 [facility] Comment on above: Performed By: #### C BC, CP #### [facility] [address] [place], [place] [id number] Shop Repairer: Crescencio Fortune MD Anion gap [Moles/Vol] 11 mmol/L Normal 9-17 [facility] Comment on above: Performed By: #### C BC, CP #### [facility] [address] [place], [place] [id number] Shop Repairer: Crescencio Fortune MD Bilirubin [Mass/Vol] 0.5 mg/dL Normal 0.3-1.2 [facility] Comment on above: Performed By: #### C BC, CP #### [facility] [address] [place], [place] [id number] Shop Repairer: Crescencio Fortune MD BUN/CRE Ratio 9 Normal 9-20 [facility] Comment on above: Performed By: #### C BC, CP #### [facility] [address] [place], [place] 9830083 Shop Repairer: Crescencio Fortune MD Calcium [Mass/Vol] 8.8 mg/dL Normal 8.6-10.4 [facility] Comment on above: Performed By: #### C BC, CP #### [facility] [address] [place], [place] [id number] Shop Repairer: Crescencio Fortune MD Chloride [Moles/Vol] 106 mmol/L Normal 98-107 [facility] Comment on above: Performed By: #### C BC, CP #### [facility] [address] [place], [place] [id number] Shop Repairer: Crescencio Fortune MD CO2 [Moles/Vol] 24 mmol/L Normal 20-31 [facility] Comment on above: Performed By: #### C BC, CP #### [facility] [address] [place], [place] 1550683 Shop Repairer: Crescencio Fortune MD Creatinine [Mass/Vol] 0.7 mg/dL Normal 0.5-0.9 [facility] Comment on above: Performed By: #### C DASHAWN, CP #### [facility] [address] [place] [address] Shop Repairer: Crescencio Fortune MD GFR/1.73 sq M.predicted among non-blacks MDRD (S/P/Bld) [Vol rate/Area] mL/min/{1.73_m2} Normal >60 [facility] Comment on above: Result Comment: [...] renal tubular secretion. Performed By: #### C DASHAWN, CP #### [facility] [address] [place] [address] Shop Repairer: Crescencio Fortune MD Glucose [Mass/Vol] 86 mg/dL Normal 70-99 [facility] Comment on above: Performed By: #### C DASHAWN, CP #### [address] [place], [place] [id number] Shop Repairer: Crescencio Fortune MD Potassium [Moles/Vol] 4.1 mmol/L Normal 3.7-5.3 [facility] Comment on above: Performed By: #### C DASHAWN, CP #### [facility] [address] [place] [address] Shop Repairer: Crescencio Fortune MD Protein [Mass/Vol] 7.4 g/dL Normal 6.4-8.3 [facility] Comment on above: Performed By: #### C DASHAWN, CP #### [facility] [address] [place] [address] Shop Repairer: Crescencio Fortune MD Sodium [Moles/Vol] 141 mmol/L Normal 135-144 [facility] Comment on above: Performed By: #### C DASHAWN, CP #### [facility] [address] [place] [address] Shop Repairer: Crescencio Fortune MD Urea nitrogen [Mass/Vol] 6 mg/dL Normal 6-20 [facility] Comment on above: Performed By: #### C DASHAWN, CP #### [facility] [address] [place] [address] Shop Repairer: Crescencio Fortune MD Comprehensive Metabolic Pane [facility] 09-30-2023 Albumin [Mass/Vol] 3.8 g/dL 3.5 - 5.2 g/dL [facility] Albumin/Globulin [Mass ratio] 1.1 {ratio} 1.0 - 2.5 [facility] ALP [Catalytic activity/Vol] 96 U/L 35 - 104 U/L [facility] ALT [Catalytic activity/Vol] 104 U/L High 5 - 33 U/L [facility] Anion gap [Moles/Vol] 11 mmol/L 9 - 17 mmol/L [facility] AST [Catalytic activity/Vol] 107 U/L High NINF - 32 U/L [facility] Bilirubin [Mass/Vol] 0.5 mg/dL 0.3 - 1 .2 mg/dL [facility] Calcium [Mass/Vol] 8.8 mg/dL 8.6 - 10. 4 mg/dL [facility] Chloride [Moles/Vol] 106 mmol/L 98 - 10 7 mmol/L [facility] CO2 [Moles/Vol] 24 mmol/L 20 - 31 mmol/L [facility] Creatinine [Mass/Vol] 0.7 mg/dL 0.5 - 0.9 mg/dL [facility] Est, Glom Filt Rate - [facility] Comment on above: These results are not [...] that affects renal tubular secretion. Glucose [Mass/Vol] 86 mg/dL 70 - 99 mg/dL [facility] Interpretation and review of laboratory results Abnormal [facility] Potassium [Moles/Vol] 4.1 mmol/L 3.7 - 5.3 mmol/L [facility] Protein [Mass/Vol] 7.4 g/dL 6.4 - 8.3 g/dL [facility] Sodium [Moles/Vol] 141 mmol/L 135 - 144 mmol/L [facility] Urea nitrogen [Mass/Vol] 6 mg/dL 6 - 20 mg/dL [facility] Urea nitrogen/Creatinine [Mass ratio] 9 mg/mg 9 - 20 [facility] CBC w/ Auto Diffon 4 Basophils/100 WBC (Bld) 0.7 % Normal 0.0-2.0 [facility] Comment on above: Performed By: #### 2 [id number] #### [facility] [address] [place] [address] Basophils/Leukocytes Auto (Bld) [Pure # fraction] 0.0 E9/L Normal 0.0-0.2 [facility] Comment on above: Performed By: #### 2 [id number] #### [facility] [address] [place] [address] Eosinophils (Bld) [#/Vol] 0.1 E9/L Normal 0.0-0.5 [facility] Comment on above: Performed By: #### 2 [id number] #### [facility] [address] [place] [address] Eosinophils/100 WBC (Bld) 1.4 % Normal 0.0-8.0 [facility] Comment on above: Performed By: #### 2 [id number] #### [facility] [address] [place] [address] Erythrocyte distribution width (RBC) [Ratio] 14.1 % Normal 10.9-14.2 [facility] Comment on above: Performed By: #### 2 [id number] #### [facility] [address] [place] [address] Hematocrit (Bld) [Volume fraction] 34.1 % Normal 34.0-46.0 [facility] Comment on above: Performed By: #### 2 [id number] #### [facility] [address] [place] [address] Hemoglobin (Bld) [Mass/Vol] 12.1 g/dL Normal 12.0-16.0 [facility] Comment on above: Performed By: #### 2 [id number] #### [facility] [address] [place] [address] Lymphocytes (Bld) [#/Vol] 1.4 E9/L Normal 1.0-4.0 [facility] Comment on above: Performed By: #### 2 [id number] #### [facility] [address] [place] [address] Lymphocytes/100 WBC (Bld) 27.6 % Normal 14.0-50.0 [facility] Comment on above: Performed By: #### 2 [id number] #### [facility] [address] [place] [address] MCH (RBC) [Entitic mass] 35.9 pg High 27.0-34.0 [facility] Comment on above: Performed By: #### 2 [id number] #### [facility] [address] [place] [address] MCHC (RBC) [Mass/Vol] 35.7 g/dL Normal 31.4-36.0 [facility] Comment on above: Performed By: #### 2 [id number] #### [facility] [address] [place] [address] MCV (RBC) [Entitic vol] 100.7 fL High 80.0-100.0 [facility] Comment on above: Performed By: #### 2 160535 #### [facility] [address] [place] [address] Monocytes (Bld) [#/Vol] 0.5 E9/L Normal 0.2-1.0 [facility] Comment on above: Performed By: #### 2 [id number] #### [facility] [address] [place] [address] Neutrophils (Bld) [#/Vol] 3.2 E9/L Normal 2.0-7.5 [facility] Comment on above: Performed By: #### 2 [id number] #### [facility] [address] [place] [address] Neutrophils/100 WBC (Bld) 60.9 % Normal 36.0-75.0 [facility] Comment on above: Performed By: #### 2 721336 #### [facility] [address] [place] [address] Platelet 120.0 E9/L Low 150.0-500.0 [facility] Comment on above: Performed By: #### 2 [id number] #### [facility] [address] [place] [address] Platelet mean volume (Bld) [Entitic vol] 8.7 fL Normal 6.4-10.8 [facility] Comment on above: Performed By: #### 2 [id number] #### [facility] [address] [place] [address] RBC (Bld) [#/Vol] 3.4 E12/L Low 4.3-5.9 [facility] Comment on above: Performed By: #### 2 226697 #### [facility] [address] [place] [address] WBC corrected for nucl RBC Auto (Bld) [#/Vol] 5.2 E9/L Normal 4.0-11.0 [facility] Comment on above: Performed By: #### 2 [id number] #### [facility] [address] [place] [address] CHEMISTRYOrdered By: SYSTEM SYSTEM on 08-30-2023 Albumin [...] 08-30-2023 Albumin [Mass/Vol] 3.8 g/dL Normal 3.3-5.0 [facility] Comment on above: Performed By: #### 2 [id number] #### [facility] [address] [place] [address] Albumin/Globulin (S) [Mass conc ratio] 1.1 Normal 1.1-2.2 [facility] Comment on above: Performed By: #### 2 [id number] #### [facility] [address] [place] [address] ALP [Catalytic activity/Vol] 112 Int._Unit/L High 21-98 [facility] Comment on above: Performed By: #### 2 [id number] #### [facility] [address] [place] [address] ALT No additional P-5'-P [Catalytic activity/Vol] 59 Int._Unit/L High 6-46 [facility] Comment on above: Performed By: #### 2 931120 #### [facility] [address] [place] [address] Anion gap [Moles/Vol] 13 mmol/L Normal 6-16 [facility] Comment on above: Performed By: #### 2 [id number] #### [facility] [address] [place] [address] AST [Catalytic activity/Vol] 96 Int._Unit/L High 5-43 [facility] Comment on above: Performed By: #### 2 [id number] #### [facility] [address] [place] [address] Bilirubin [Mass/Vol] 1.2 mg/dL High 0.0-1.1 [facility] Comment on above: Performed By: #### 2 [id number] #### [facility] [address] [place] [address] Calcium [Mass/Vol] 9.2 mg/dL Normal 8.9-11.1 [facility] Comment on above: Performed By: #### 2 [id number] #### [facility] [address] [place] [address] Chloride [Moles/Vol] 105 mmol/L Normal 101-111 [facility] Comment on above: Performed By: #### 2 768696 #### [facility] [address] [place] [address] CO2 [Moles/Vol] 22 mmol/L Normal 21-31 [facility] Comment on above: Performed By: #### 2 [id number] #### [facility] [address] [place] [address] Creatinine [Mass/Vol] 0.5 mg/dL Normal 0.5-1.3 [facility] Comment on above: Performed By: #### 2 807510 #### [facility] [address] [place] [address] Globulin (S) [Mass/Vol] 3.6 g/dL Normal 1.4-4.0 [facility] Comment on above: Performed By: #### 2 [id number] #### [facility] [address] [place] [address] Glucose [Mass/Vol] 96 mg/dL Normal 55-199 [facility] Comment on above: Performed By: #### 2 740405 #### [facility] [address] [place] [address] Potassium [Moles/Vol] 4.1 mmol/L Normal 3.5-5.3 [facility] Comment on above: Performed By: #### 2 [id number] #### [facility] [address] [place] [address] Protein [Mass/Vol] 7.4 g/dL Normal 6.0-7.8 [facility] Comment on above: Performed By: #### 2 284364 #### [facility] [address] [place] [address] Sodium [Moles/Vol] 136 mmol/L Normal 135-145 [facility] Comment on above: Performed By: #### 2 [id number] #### [facility] [address] [place] [address] Urea nitrogen [Mass/Vol] 6 mg/dL Normal 5-21 [facility] Comment on above: Performed By: #### 2 [id number] #### [facility] [address] [place] [address] Urea nitrogen/Creatinine [Mass ratio] 12 No Units Normal 10-20 [facility] Comment on above: Performed By: #### 2 [id number] #### [facility] [address] [place] [address] ED Clinical Summaryon 2023 ED Clinical Summary ED Clinical Summary [address] [address] ED Clinical Summary Person Information Name: LYLE BAILEY [facility] Age: 33 Years : 1990 Sex: Female Language: Brazilian PCP: Birgit Aiken MD Marital Status: Single [...] 08/30/2023 01:36:46 08/30/2023 01:36:46 08/30/2023 01:36:46 ADDRESS: [address] [place] [id number] [facility] DOC NOTES: MEDICAL INFORMATION: Prescriptions Given: New Medications [facility], [address] [place], [place] [phone], [phone] lorazepam (Ativan 1 mg Tab) 1 Tablets [...] PATIENT EDUCATION INFORMATION: Instructions: Alcohol Withdrawal Syndrome, Abih-kf-Tfon Follow up: With: Address: When: Chemical Dependency: In 3 days 09/02/2023 Comments: you can use Ativan every 8 hours as needed for your symptoms. Please follow-up with your primary care doctor and chemical dependency for further evaluation management. Return to the ED for any new or worsening symptoms. With: Address: When: Birgit Aiken [address] [place] [address], [address] [place] [id number] [facility] (1) In 3 days DIAGNOSIS: Alcohol abuse with withdrawal Normal [facility] ED Note-Physicianon 08-30-19 ED Note-Physician ED Note-Physician Basic Information Time Seen: Kerry Linton DO 08/29/2023 22:53 Chief Complaint Pt to ED with mother for increased anxiety, increased HR, and delusions. Pt states stopped drinking 3 days ago and has been having symptoms since. Pt states 14 twisted teas a day prior to quiting. Saw PCP today. 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 Birgit Aiken In [address] [place] [address]- Business (1) Additional Instructions: Patient Education Alcohol Withdrawal Syndrome, Jagz-ig-Zfsg Problem List/Past Medical History Ongoing Alcohol abuse Bipolar depression BMI 29.0-29.9,adult Dysuria Hepatitis B Hepatitis C History of drug abuse Hyperhidrosis Lower extremity neuropathy Overweight Smoker Sore throat STD exposure UTI (urinary tract infection), uncomplicated Historical Group B streptococcus Smoker.. Yeast vaginitis Procedure/Surgical History None. M (more content not included)... Normal [facility] Comment on above: Result Comment: Elec tronically Signed By: Kerry Linton DO\.br\Date and Time Signed: 08/30/23 01:41 EDT ED Patient Summaryon 024 ED Patient Summary ED Patient Summary [address] [address] Patient Discharge Instructions Person Information Name: LYLE BAILEY Age: 33 Years Arrival Date: 08/29/2023 22:33:51 Discharge Diagnosis: Alcohol abuse with withdrawal Primary Care Physician: Birgit Aiken MD Provider Information Primary Provider: Kerry Linton DO Advanced Bean Snapper:None The exam and treatment you received in the Emergency Department were for an urgent problem and are not intended as complete care. It is important that you follow up with a doctor, nurse practitioner, or physician?s assistant plant manager for ongoing care. If your symptoms become [...] symptoms. With: Address: When: Birgit Aiken [address] [place] [address] Business (1) In 3 days In the event that this physician does not participate in your insurance network, please consult with your insurance company to find a nearby participating provider. Patient Education Materials: Alcohol Withdrawal Syndrome, Wcgy-mn-Esxn A MESSAGE TO ALL PATIENTS REGARDING OPIOIDS PRESCRIPTION OPIOIDS: WHAT YOU NEED TO KNOW Prescription opioids can be used to help relieve cfdpvltz-vc-hnsjzy pain and are often prescribed following a [...] following guidance (more content not included)... Normal [facility] Ethanolon 08-30-2023 Ethanol Lvl <10 Normal <=11 [facility] Comment on above: Performed By: #### 2 [id number] #### [facility] [address] [place] [address] HEMATOLOGYOrdered By: SYSTEM SYSTEM on 08-30-2023 Basophils/100 [...] 08-30-2023 eGFR 128 mL/min/1.73 m2 Normal >=59 [facility] Comment on above: Order Comment: Order added by Discern Expert. Performed By: #### 1 [id number] #### [facility] [address] [place] [address] [facility] Creatinine [Mass/Vol] 0.5 mg/dL Normal 0.5-1.3 [facility] Comment on above: Performed By: #### 2 [id number] #### [facility] [address] [place] [address] Glucose [Mass/Vol] 93 mg/dL Normal 55-199 [facility] Comment on above: Performed By: #### 2 [id number] #### [facility] [address] [place] [address] Urea nitrogen [Mass/Vol] 8 mg/dL Normal 5-21 [facility] Comment on above: Performed By: #### 2 [id number] #### [facility] [address] [place] [address] Urea nitrogen/Creatinine [Mass ratio] 16 No Units Normal 10-20 [facility] Comment on above: Performed By: #### 2 [id number] #### [facility] [address] [place] [address] Anion gap [Moles/Vol] 13 mmol/L Normal 6-16 [facility] Comment on above: Performed By: #### 2 [id number] #### [facility] [address] [place] [address] Calcium [Mass/Vol] 9.1 mg/dL Normal 8.9-11.1 [facility] Comment on above: Performed By: #### 2 359162 #### [facility] [address] [place] [address] Chloride [Moles/Vol] 103 mmol/L Normal 101-111 [facility] Comment on above: Performed By: #### 2 082143 #### [facility] [address] [place] [address] CO2 [Moles/Vol] 22 mmol/L Normal 21-31 [facility] Comment on above: Performed By: #### 2 [id number] #### [facility] [address] [place] [address] Potassium [Moles/Vol] 3.9 mmol/L Normal 3.5-5.3 [facility] Comment on above: Performed By: #### 2 [id number] #### [facility] [address] [place] [address] Sodium [Moles/Vol] 134 mmol/L Low 135-145 [facility] Comment on above: Performed By: #### 2 [id number] #### [facility] [address] [place] [address] CBC w/Indiceson 08-29-2023 Erythrocyte distribution width (RBC) [Ratio] 13.9 % Normal 10.9-14.2 [facility] Comment on above: Performed By: #### 2 [id number] #### [facility] [address] [place] [address] Hematocrit (Bld) [Volume fraction] 34.6 % Normal 34.0-46.0 [facility] Comment on above: Performed By: #### 2 101436 #### [facility] [address] [place] [address] Hemoglobin (Bld) [Mass/Vol] 12.1 g/dL Normal 12.0-16.0 [facility] Comment on above: Performed By: #### 2 [id number] #### [facility] [address] [place] [address] MCH (RBC) [Entitic mass] 35.3 pg High 27.0-34.0 [facility] Comment on above: Performed By: #### 2 [id number] #### [facility] [address] [place] [address] MCHC (RBC) [Mass/Vol] 34.9 g/dL Normal 31.4-36.0 [facility] Comment on above: Performed By: #### 2 [id number] #### [facility] [address] [place] [address] MCV (RBC) [Entitic vol] 101.1 fL High 80.0-100.0 [facility] Comment on above: Performed By: #### 2 [id number] #### [facility] [address] [place] [address] Platelet 111.0 E9/L Low 150.0-500.0 [facility] Comment on above: Performed By: #### 2 [id number] #### [facility] [address] [place] [address] Platelet mean volume (Bld) [Entitic vol] 8.9 fL Normal 6.4-10.8 [facility] Comment on above: Performed By: #### 2 [id number] #### [facility] [address] [place] [address] RBC (Bld) [#/Vol] 3.4 E12/L Low 4.3-5.9 [facility] Comment on above: Performed By: #### 2 349109 #### [facility] [address] [place] [address] RBC size Nom (Bld) NORMAL Invalid Interpretation Code [facility] Comment on above: Performed By: #### 2 [id number] #### [facility] [address] [place] [address] WBC corrected for nucl RBC Auto (Bld) [#/Vol] 4.8 E9/L Normal 4.0-11.0 [facility] Comment on above: Performed By: #### 2 [id number] #### [facility] [address] [place] [address] CHEMISTRYOrdered By: SYSTEM SYSTEM on 08-29-2023 Anion [...] 08-29-2023 Cholesterol [Mass/Vol] 126 mg/dL Normal 120-200 [facility] Comment on above: Performed By: #### 2 [id number] #### [facility] [address] [place] [address] Cholesterol in HDL [Mass/Vol] 18 mg/dL Invalid Interpretation Code [facility] Comment on above: Result Comment: '>= 60 LOW RISK' '<= 40 HIGH RISK' Performed By: #### 2 [id number] #### [facility] [address] [place] [address] Cholesterol in LDL [Mass/Vol] 97 mg/dL Normal <=129 [facility] Comment on above: Performed By: #### 2 [id number] #### [facility] Laboratory [address] [place] [address] Cholesterol in VLDL [Mass/Vol] 25 mg/dL Normal 7-40 [facility] Comment on above: Performed By: #### 2 [id number] #### [facility] [address] [place] [address] Triglyceride [Mass/Vol] 127 mg/dL Normal <=149 [facility] Comment on above: Performed By: #### 2 [id number] #### [facility] [address] [place] [address] TSHon 08-29-2023 TSH Qn 2.97 m[IU]/L Normal 0.34-5.60 [facility] Comment on above: Performed By: #### 2 [id number] #### [facility] [address] [place] [address] eGFRon 08-29-2023 eGFR 128 mL/min/1.73 m2 Normal >=59 [facility] Comment on above: Order Comment: Order added by Discern Expert. Performed By: #### 1 [id number] #### [facility] [address] [place] [address] Provider Letteron 08-13-2023 Provider Letter Provider Letter August 13, 2023 LYLE BAILEY [address] [place] [phone] LYLE BAILEY T 1990 Dear Lyle, We have been trying to reach you with no success. It is important that you return our call regarding your hospital discharge upon receiving this letter. Also, at the time of your call, please provide us with your current information. Thank you for your prompt attention to this matter. Sincerely, Ernesto Rossi RN, Commercial Green Building Designer [phone] Normal [facility] ED Note-Physicianon 08-08-20 24 ED Note-Physician ED Note-Physician Basic Information Time [...] (08/06/23 17:28:00) HGB: 11.9 gm/dL Low (08/06/23 17::00) Hct: 33.1 % Low (08/06/23 17::00) MCV: 98.1 fL (08/06/23 17::00) MCH: 35.2 pg High (08/06/23::) MCHC: 35.9 gm/dL (08/06/23::00) RDW: 14.2 % (08/06/23 17::00) Platelet: 101 E9/L Low (08/06/23 17::00) MPV: 9.4 fL (08/06/23 17::00) Neutro Auto: 68.1 % (08/06/23 17::00) Lymph Auto: 26.3 % (08/06/23 17::00) [place] Auto: 4.3 % (08/06/23::) Eos Auto: 0.5 % (more content not included)... Normal [facility] Comment on above: Result Comment: Elec tronically Signed By: Fabricio Gao PA-C\.br\Date and Time Signed: 08/06/23 18:28 EDT\.br\Electronically Co-Signed By: Eric Forbes DO\.br\Date and Time Co-Signed: 08/09/23 07:16 EDT Cholesterol [Mass/volume] in Serum or PlasmaOrdered By: Piyush Pace on 08-07-2023 Cholesterol [Mass/Vol] 125 mg/dL Low 140-200 [facility] Comment on above: Chol less than 200 m g/dl low riskChol 201-239 mg/dl borderline riskChol 240 mg/dl and greater high risk Result Comment: Chol less than 200 mg/dl low risk Chol 201-239 mg/dl borderline risk Chol 240 mg/dl and greater high risk Performed By: #### U HCG, UA, URDS #### [facility] [id number] [facility] Cholesterol in LDL Calc [Mas s/Vol]Ordered By: Piyush Pace on 08-07-2023 Cholesterol in LDL [Mass/Vol] 78 mg/dL 0-100 [facility] Comment on above: LDL ATP III CLASSIFI CATIONLDL less than 100 mg/dL OptimalLDL 100-129 mg/dL Near or above optimalLDL 130-159 mg/dL Borderline highLDL 160-189 mg/dL HighLDL greater than 189 mg/dL Very high Cholesterol in VLDL Calc [Ma ss/Vol]Ordered By: Piyush Pace on 08-07-2023 Cholesterol in VLDL [Mass/Vol] 31 mg/dL [facility] ECG 12 lead ECGon 08-07-2023 ECG 12 lead ECG [facility] [place] [address] [id number] Electrocardiograph Report Signed Patient: Lyle Bailey MR#: [id number] : 1990 Acct:[id number] Age/Sex: 33 / F ADM Date: 08/06/23 Loc: Room: [address] [place] [address] Type: ADM IN Attending Dr: Piyush Pace [...] change was found Confirmed by ABDULKADIR SINGLETARY FACAZRA Loera ([id number]) on 08/07/2023 12:48:52 PM Referred By: Electronically Signed By:AZRA PANCHAL MD FACC Transcribed By: MUS Signed By Endy Panchal MD 08/07/23 1248 Normal [facility] Lipid Panelon 08-07-2023 LDL Cholesterol,Calculate d 78 mg/dL Normal 0-100 [facility] Comment on above: Result Comment: LDL ATP III CLASSIFICATION LDL less than 100 mg/dL Optimal LDL 100-129 mg/dL Near or above optimal LDL 130-159 mg/dL Borderline high LDL 160-189 mg/dL High LDL greater than 189 mg/dL Very high Performed By: #### U HCG, UA, URDS #### [facility] [address] Triglyceride w/Reflex 155 mg/dL High 0-149 [facility] Comment on above: Result Comment: TRIG ATP III CLASSIFICATION TRIG less than 150 mg/dL Normal TRIG 150-199 mg/dL Borderline high TRIG 200-500 mg/dL High TRIG greater than 500 mg/dL Very high Standard traceable to the Center for Disease Conrtrol and Prevention (CDC) test method. Performed By: #### U HCG, UA, URDS #### [facility] [address] VLDL CHOLESTEROL 31 mg/dL Normal [facility] Comment on above: Performed By: #### U HCG, UA, URDS #### [facility] [address] Serum or plasma high density lipoprotein (HDL) cholesterol measurementOrdered By: Piyush Pace on 08-07-2023 Cholesterol in HDL [Mass/Vol] 16 mg/dL Low 23-92 [facility] Comment on above: HDL CHOL ATP-III CLA SSIFICATION Cardiovascular RiskHDL > or equal to 60 mg/dL LOWHDL < 40 mg/dL HIGH Result Comment: HDL CHOL ATP-III CLASSIFICATION Cardiovascular Risk HDL > or equal to 60 mg/dL LOW HDL < 40 mg/dL HIGH Performed By: #### U HCG, UA, URDS #### [facility] [address] Serum or plasma total choles terol/high density lipoprotein (HDL) cholesterol mass ratOrdered By: Piyush Pace on 08-07-2023 Cholesterol.total/Cho lesterol in HDL [Mass ratio] 7.8 {ratio} Normal <5.0 [facility] Comment on above: Performed By: #### U HCG, UA, URDS #### [facility] [address] Thyroid Stim Hormone w/Rflxo n 08-07-2023 Thyroid Stim Hormone w/Rflx 2.11 u[iU]/mL Normal 0.45-5.33 [facility] Comment on above: Performed By: #### U HCG, UA, URDS #### [facility] [address] Thyrotropin [Units/volume] i n Serum or PlasmaOrdered By: Piyush Pace on 08-07-2023 TSH Qn 2.11 m[IU]/L 0.45-5.33 [facility] Triglyceride [Mass/volume] i n Serum or PlasmaOrdered By: Piyush Pace on 08-07-2023 Triglyceride [Mass/Vol] 155 mg/dL High 0-149 [facility] Comment on above: TRIG ATP III CLASSIF ICATIONTRIG less than 150 mg/dL NormalTRIG 150-199 mg/dL Borderline highTRIG 200-500 mg/dL High TRIG greater than 500 mg/dL Very highStandard traceable to the Center for Disease Conrtrol and Prevention (CDC) test method. Vitamin D 25 Hydroxy Totalon 08-07-2023 Vitamin D 25 Hydroxy Total 39.7 ng/mL Normal 30-100 [facility] Comment on above: Result Comment: CATA MIN D STATUS 25([place])VITAMIN D RANGE (ng/mL) Deficient <20 Insufficient 20 to <30 Sufficient 30 to 100 Reference: Tete MF,David NC, Horace COTO, et al. Evaluation,treatment, and prevention of vitamin D deficiency; an Endocrine Society clinical practice guideline. JCEM. 2010; 96(7):1911-30. PERFORMED BY: [place] [address] PATHOLOGIST COMPUTER AIDED DESIGN TECHNICIAN LEE CARDOSO M.D. Performed By: #### U HCG, UA, URDS #### [facility] [id number] [facility] Vitamin D+Metabolites [Mass/ volume] in Serum or PlasmaOrdered By: Piyush Pace on 08-07-2023 Vitamin D+Metabolites [Mass/Vol] 39.7 ng/mL 30-100 [facility] Comment on above: VITAMIN D STATUS 25( [place])VITAMIN D RANGE (ng/mL) Deficient <20 Insufficient 20 to <30Sufficient 30 to 100Reference: Tete MF,David NC, Horace COTO, et al. Evaluation,treatment, and prevention of vitamin D deficiency; an Endocrine Society clinical practice guideline. JCEM. 2010; 96(7):1911-30. CBC w/ Auto Diffon 4 Basophils/100 WBC (Bld) 0.8 % Normal 0.0-2.0 [facility] Comment on above: Order Comment: phleb s [place] and judit attempted to draw and were unsuccessful. called other phlebs to come draw. [id number] 08/06/2023 17:07:15 EDT Performed By: #### 2 [id number] #### [facility] [address] [place] [address] Basophils/Leukocytes Auto (Bld) [Pure # fraction] 0.1 E9/L Normal 0.0-0.2 [facility] Comment on above: Order Comment: phleb s [place] and judit attempted to draw and were unsuccessful. called other phlebs to come draw. [id number] 08/06/2023 17:07:15 EDT Performed By: #### 2 [id number] #### [facility] [address] [place] [address] Eosinophils (Bld) [#/Vol] 0.0 E9/L Normal 0.0-0.5 [facility] Comment on above: Order Comment: phleb s [place] and judit attempted to draw and were unsuccessful. called other phlebs to come draw. [id number] 08/06/2023 17:07:15 EDT Performed By: #### 2 [id number] #### [facility] [address] [place] [address] Eosinophils/100 WBC (Bld) 0.5 % Normal 0.0-8.0 [facility] Comment on above: Order Comment: phleb s [place] and judit attempted to draw and were unsuccessful. called other phlebs to come draw. [facility] 08/06/2023 17:07:15 EDT Performed By: #### 2 [id number] #### [facility] [address] [place] [address] Erythrocyte distribution width (RBC) [Ratio] 14.2 % Normal 10.9-14.2 [facility] Comment on above: Order Comment: phleb s [place] and judit attempted to draw and were unsuccessful. called other phlebs to come draw. [facility] 08/06/2023 17:07:15 EDT Performed By: #### 2 [id number] #### [facility] [address] [place] [address] Hematocrit (Bld) [Volume fraction] 33.1 % Low 34.0-46.0 [facility] Comment on above: Order Comment: phleb s [place] and judit attempted to draw and were unsuccessful. called other phlebs to come draw. [facility] 08/06/2023 17:07:15 EDT Performed By: #### 2 [id number] #### [facility] [address] [place] [address] Hemoglobin (Bld) [Mass/Vol] 11.9 g/dL Low 12.0-16.0 [facility] Comment on above: Order Comment: phleb s [place] and judit attempted to draw and were unsuccessful. called other phlebs to come draw. [facility] 08/06/2023 17:07:15 EDT Performed By: #### 2 [id number] #### [facility] [address] [place] [address] Lymphocytes (Bld) [#/Vol] 1.9 E9/L Normal 1.0-4.0 [facility] Comment on above: Order Comment: phleb s [place] and judit attempted to draw and were unsuccessful. called other phlebs to come draw. [facility] 08/06/2023 17:07:15 EDT Performed By: #### 2 [id number] #### [facility] [address] [place] [address] Lymphocytes/100 WBC (Bld) 26.3 % Normal 14.0-50.0 [facility] Comment on above: Order Comment: phleb s [place] and judit attempted to draw and were unsuccessful. called other phlebs to come draw. [facility] 08/06/2023 17:07:15 EDT Performed By: #### 2 [id number] #### [facility] [address] [place] [address] MCH (RBC) [Entitic mass] 35.2 pg High 27.0-34.0 [facility] Comment on above: Order Comment: phleb s [place] and judit attempted to draw and were unsuccessful. called other phlebs to come draw. [facility] 08/06/2023 17:07:15 EDT Performed By: #### 2 [id number] #### [facility] [address] [place] [address] MCHC (RBC) [Mass/Vol] 35.9 g/dL Normal 31.4-36.0 [facility] Comment on above: Order Comment: phleb s [place] and judit attempted to draw and were unsuccessful. called other phlebs to come draw. [facility] 08/06/2023 17:07:15 EDT Performed By: #### 2 [id number] #### [facility] [address] [place] [address] MCV (RBC) [Entitic vol] 98.1 fL Normal 80.0-100.0 [facility] Comment on above: Order Comment: phleb s [place] and judit attempted to draw and were unsuccessful. called other phlebs to come draw. [facility] 08/06/2023 17:07:15 EDT Performed By: #### 2 [id number] #### [facility] [address] [place] [address] Monocytes (Bld) [#/Vol] 0.3 E9/L Normal 0.2-1.0 [facility] Comment on above: Order Comment: phleb s [place] and judit attempted to draw and were unsuccessful. called other phlebs to come draw. [facility] 08/06/2023 17:07:15 EDT Performed By: #### 2 [id number] #### [facility] [address] [place] [address] Neutrophils (Bld) [#/Vol] 5.0 E9/L Normal 2.0-7.5 [facility] Comment on above: Order Comment: phleb s [place] and judit attempted to draw and were unsuccessful. called other phlebs to come draw. [id number] 08/06/2023 17:07:15 EDT Performed By: #### 2 [id number] #### [facility] [address] [place] [address] Neutrophils/100 WBC (Bld) 68.1 % Normal 36.0-75.0 [facility] Comment on above: Order Comment: phleb s [place] and judit attempted to draw and were unsuccessful. called other phlebs to come draw. [id number] 08/06/2023 17:07:15 EDT Performed By: #### 2 [id number] #### [facility] [address] [place] [address] Platelet 101.0 E9/L Low 150.0-500.0 [facility] Comment on above: Order Comment: phleb s [place] and judit attempted to draw and were unsuccessful. called other phlebs to come draw. [id number] 08/06/2023 17:07:15 EDT Performed By: #### 2 [id number] #### [facility] [address] [place] [address] Platelet mean volume (Bld) [Entitic vol] 9.4 fL Normal 6.4-10.8 [facility] Comment on above: Order Comment: phleb s [place] and judit attempted to draw and were unsuccessful. called other phlebs to come draw. [id number] 08/06/2023 17:07:15 EDT Performed By: #### 2 [id number] #### [facility] [address] [place] [address] RBC (Bld) [#/Vol] 3.4 E12/L Low 4.3-5.9 [facility] Comment on above: Order Comment: phleb s [place] and judit attempted to draw and were unsuccessful. called other phlebs to come draw. [id number] 08/06/2023 17:07:15 EDT Performed By: #### 2 [id number] #### [facility] [address] [place] [address] WBC corrected for nucl RBC Auto (Bld) [#/Vol] 7.4 E9/L Normal 4.0-11.0 [facility] Comment on above: Order Comment: phleb s [place] and judit attempted to draw and were unsuccessful. called other phlebs to come draw. [id number] 08/06/2023 17:07:15 EDT Performed By: #### 2 [id number] #### [facility] [address] [place] [address] CHEMISTRYOrdered By: SYSTEM SYSTEM on 08-06-2023 Amphetamines [...] 08-06-2023 Albumin [Mass/Vol] 3.7 g/dL Normal 3.3-5.0 [facility] Comment on above: Performed By: #### 2 [id number] #### [facility] [address] [place] [address] Albumin/Globulin (S) [Mass conc ratio] 1.2 Normal 1.1-2.2 [facility] Comment on above: Performed By: #### 2 [id number] #### [facility] [address] [place] [address] ALP [Catalytic activity/Vol] 98 Int._Unit/L Normal 21-98 [facility] Comment on above: Performed By: #### 2 [id number] #### [facility] [address] [place] [address] ALT No additional P-5'-P [Catalytic activity/Vol] 74 Int._Unit/L High 6-46 [facility] Comment on above: Performed By: #### 2 [id number] #### [facility] [address] [place] [address] Anion gap [Moles/Vol] 10 mmol/L Normal 6-16 [facility] Comment on above: Performed By: #### 2 [id number] #### [facility] [address] [place] [address] AST [Catalytic activity/Vol] 114 Int._Unit/L High 5-43 [facility] Comment on above: Performed By: #### 2 [id number] #### [facility] [address] [place] [address] Bilirubin [Mass/Vol] 1.1 mg/dL Normal 0.0-1.1 [facility] Comment on above: Performed By: #### 2 [id number] #### [facility] [address] [place] [address] Calcium [Mass/Vol] 8.5 mg/dL Low 8.9-11.1 [facility] Comment on above: Performed By: #### 2 [id number] #### [facility] [address] [place] [address] Chloride [Moles/Vol] 100 mmol/L Low 101-111 [facility] Comment on above: Performed By: #### 2 [id number] #### [facility] [address] [place] [address] CO2 [Moles/Vol] 25 mmol/L Normal 21-31 [facility] Comment on above: Performed By: #### 2 [id number] #### [facility] [address] [place] [address] Creatinine [Mass/Vol] 0.5 mg/dL Normal 0.5-1.3 [facility] Comment on above: Performed By: #### 2 [id number] #### [facility] [address] [place] [address] Globulin (S) [Mass/Vol] 3.1 g/dL Normal 1.4-4.0 [facility] Comment on above: Performed By: #### 2 [id number] #### [facility] [address] [place] [address] Glucose [Mass/Vol] 92 mg/dL Normal 55-199 [facility] Comment on above: Performed By: #### 2 [id number] #### [facility] [address] [place] [address] Potassium [Moles/Vol] 3.8 mmol/L Normal 3.5-5.3 [facility] Comment on above: Performed By: #### 2 [id number] #### [facility] [address] [place] [address] Protein [Mass/Vol] 6.8 g/dL Normal 6.0-7.8 [facility] Comment on above: Performed By: #### 2 [id number] #### [facility] [address] [place] [address] Sodium [Moles/Vol] 131 mmol/L Low 135-145 [facility] Comment on above: Performed By: #### 2 [id number] #### [facility] [address] [place] [address] Urea nitrogen [Mass/Vol] 7 mg/dL Normal 5-21 [facility] Comment on above: Performed By: #### 2 [id number] #### [facility] [address] [place] [address] Urea nitrogen/Creatinine [Mass ratio] 14 No Units Normal 10-20 [facility] Comment on above: Performed By: #### 2 [id number] #### [facility] [address] [place] [address] Consent for Treatmenton 07-13 Consent for Treatment [id number] F Normal [facility] ED Clinical Summaryon 2023 ED Clinical Summary (Inserted Image. Tracy ble to display) [address] [id number] ED Clinical Summary Person Information Name: LYLE BAILEY [facility] Age: 33 Years : 1990 Sex: Female Language: Brazilian PCP: Amanda BERNARD CNP Marital Status: Single Visit Id: Visit [...] 08/06/2023 21:00:25 08/06/2023 21:00:25 08/06/2023 21:00:25 ADDRESS: [address] [place] [id number] PHYS DOC NOTES: MEDICAL INFORMATION: Prescriptions Given: [...] INFORMATION: Instructions: Follow up: DIAGNOSIS: 1:Hallucinations Normal [facility] ED Note-Nursingon 08-06-2023 ED Note-Nursing Spoke to Evaristo from [facility]. Informed this RN that she talked to mother and mother stated that pt expressed SI today and wanted to shoot herself with a gun to get the voices to stop. Pt placed under suicidal precautions at this time. Sitter outside room. All belongings removed. Normal [facility] ED Patient Education Noteon 08-06-2023 ED Patient Education Note Normal [facility] ED Patient Summaryon 024 ED Patient Summary (Inserted Image. Tracy ble to display) [place] [id number] Patient Discharge Instructions Person Information Name: LYLE BAILEY Age: 33 Years Arrival Date: 08/06/2023 15:46:17 Discharge Diagnosis: 1:Hallucinations Primary Care Physician: Amanda BERNARD CNP Provider Information Primary Provider: Eric Forbes DO Advanced Bean Snapper:Fabricio Gao PA-C The exam and treatment you received in the Emergency Department were for an urgent problem and are not intended as complete care. It is important that you follow up with a doctor, nurse practitioner, or physician?s assistant plant manager for ongoing care. If your symptoms become [...] opioids can be used to help relieve aradxjsw-wr-pixigc pain and are often prescribed following a [...] guidance from the Food and Drug Administration (www.fda.gov/Drugs/Soren guidryesForYou). ? Visit www.cdc.gov/drugoverdose to learn about the risks of opioids abuse and overdose. ? If you believe you may be struggling with addiction, tell your health managed care liaison and ask for guidance or call [facility]?S National Helpline at 5-743-865-SKMG. t Source: [place] Department of Health and Human Services/Center for Disease Control & Prevention [facility] Medications Given: Medication Dose Route (more content not included)... Normal [facility] Ethanolon 08-06-2023 Ethanol Lvl <10 Normal <=11 [facility] Comment on above: Performed By: #### 2 [id number] #### [facility] [address] [place] [address] HEMATOLOGYOrdered By: SYSTEM SYSTEM on 08-06-2023 Basophils/100 [...] Remisol Heme Outside Recordson 08-06-2023 Outside Records [id number] FF Normal [facility] Transfer Documentson 024 Transfer Documents [id number] FF Normal [facility] U Drug Screenon 08-06-2023 Amphetamines Screen method >1000 ng/mL Ql (U) Positive Abnormal NEGATIVE [facility] Comment on above: Result Comment: Nega tive Cutoff: <1000 ng/mL Performed By: #### 2 [id number] #### [facility] [address] [place] [address] Barbiturates Screen Ql (U) Negative Normal NEGATIVE [facility] Comment on above: Result Comment: Nega tive Cutoff: <200 ng/mL Performed By: #### 2 [id number] #### [facility] [address] [place] [address] Benzodiazepines Ql (U) Negative Normal NEGATIVE [facility] Comment on above: Result Comment: Nega tive Cutoff: <200 ng/mL Performed By: #### 2 [id number] #### [facility] [address] [place] [address] Cannabinoids Screen Ql (U) Negative Normal NEGATIVE [facility] Comment on above: Result Comment: Nega tive Cutoff: <50 ng/mL Performed By: #### 2 [id number] #### [facility] [address] [place] [address] Cocaine Ql (U) Negative Normal NEGATIVE [facility] Comment on above: Result Comment: Nega tive Cutoff: <300 ng/mL Performed By: #### 2 [id number] #### [facility] [address] [place] [address] Opiates Screen Ql (U) Negative Normal NEGATIVE [facility] Comment on above: Result Comment: Nega tive Cutoff: <300 ng/mL Performed By: #### 2 [id number] #### [facility] [address] [place] [address] Phencyclidine Screen method >25 ng/mL Ql (U) Negative Normal NEGATIVE [facility] Comment on above: Result Comment: Nega tive Cutoff: <25 ng/mL These drug screen results are to be used for medical (i.e., treatment) purposes only. Unconfirmed drug screening results must not be used for non-medical purposes (e.g., employment testing, legal testing). Performed By: #### 2 [id number] #### [facility] [address] [place] [address] U Fentanyl Negative Normal NEGATIVE [facility] Comment on above: Result Comment: Nega tive Cutoff: <5 ng/mL These drug screen results are to be used for medical (i.e., treatment) purposes only. Unconfirmed drug screening results must not be used for non-medical purposes (e.g., employment testing, legal testing). Performed By: #### 2 [id number] #### [facility] [address] [place] [address] Valuables Checkliston 2023 Valuables Checklist [id number]#[id number] FF Normal [facility] eGFRon 08-06-2023 eGFR 128 mL/min/1.73 m2 Normal >=59 [facility] Comment on above: Order Comment: Order added by Discern Expert. Performed By: #### 1 [id number] #### [facility] [address] [place] [address] C Urineon 07-17-2023 Bacteria identified Cx Nom [...] Locations R1: This test was performed at: [facility], [address] [place] [address], [id number]- , , Normal [facility] Comment on above: Performed By: #### 2 [id number] #### [facility] [address] [place] [address] Chlam/GC/Trich,NAAon 024 C. trachomatis rRNA MOISES+probe Ql (Unsp spec) Negative Invalid Interpretation Code Negative [facility] Comment on above: Performed By: #### 1 [id number] #### [facility] [address] [place] [address] N. gonorrhoeae rRNA MOISES+probe Ql (Unsp spec) Negative Invalid Interpretation Code Negative [facility] Comment on above: Performed By: #### 1 [id number] #### [facility] [address] [place] [address] T. vaginalis rRNA MOISES+probe Ql (Unsp spec) Negative Invalid Interpretation Code Negative [facility] Comment on above: Result Comment: Perf ormed at: =G [facility] [address] JESSIKA Lunsford [id number] MD Pete Norman Performed By: #### 1 [id number] #### [facility] [address] [place] [address] Ambulatory Visit Summaryon 0 07-14-2023 Ambulatory Visit Summary YLLE BAILEY :1990 Visit Date:07/14/2023 Ambulatory Visit Instructions Your Diagnosis BMI 29.0-29.9,adult Dysuria Your Care Team Attending Physician - Mike Spear PA-C Primary Care Physician - Amanda BERNARD CNP This Is Your Medications List acetaminophen [...] future visit, Nurse collect, BMI 29.0-29.9,adult Normal [facility] Family Medicine Office/Clini c Noteon 07-14-2023 [...] with voice recognition software. Occasional wrong-word or ?suqyp-i-alll? substitutions may have occurred due to the inherent limitations of voice recognition software. 33-year-old female presents to critical access hospital care today with chief complaint of [...] Dysuria (R30.0: Dysuria) Please follow-up with your educational program assistant in 3 to 5 days. You were [...] day(s), # 14 tab(s), Refills(s) 0, Pharmacy: [facility], 156, cm, 07/14/23 11:03:00 EDT, Height/Length Dosing, 71, kg, 07/14/23 11:03:00 EDT, Weight Dosing phenazopyridine, 100 mg = 1 tab(s), Oral, TID, X 3 day(s), # 9 tab(s), Refills(s) 0, Pharmacy: [facility], 156, cm, 07/14/23 11:03:00 EDT, Height/Length Dosing, 71, kg, 07/14/23 11:03:00 EDT, Weight Dosing Chlam/GC/Trich,MOISES Urine Culture Urnls Dip Stick (more content not included)... Normal [facility] Comment on above: Result Comment: Elec [...] numbers. This can be done either in Brazilian (U.S[place] or metric measurements. Note that charts and online BMI calculators are available to help you find your BMI quickly and easily without having to do these calculations yourself. To calculate your BMI in Brazilian ([place].S[place] measurements: 1. Measure your weight in [...] for Disease Control and Prevention: www.cdc.gov ? [place] [employer]: www.heart.org ? National Heart, Lung, and Blood [place]: www.nhlbi.nih.gov Summary ? Body mass index (BMI) is a number that is calculated from a person's weight and height. ? BMI may help estimate how much of a person's weight is composed of fat. BMI can help identify those who may be at higher risk for certain medical problems. ? BMI can be measured using Brazilian measurements or metric measurements. ? BMI charts are used to identify whether you are underweight, normal weight, overweight, or obese. This information is not intended to replace advice given to you by your health care provider. Make sure you discuss any questions you have with your health care provider. Document Revised: 10/21/2019 Document Reviewed: 08/28/2019 [employer] Patient Education ? 2022 [employer] Pulmonary Medicine Steps to Quit Smoking [...] to quit. (more content not included)... Normal [facility] Valuables Checkliston 2023 Valuables Checklist [id number]#[id number] FF Normal [facility] B hCG Qualon 07-05-2023 Beta HCG ( test) Ql Negative Normal [facility] Comment on above: Performed By: #### 2 [id number] #### [facility] [address] [place] [address] CBC w/ Auto Diffon 4 Basophils/100 WBC (Bld) 2.5 % High 0.0-2.0 [facility] Comment on above: Performed By: #### 2 [id number] #### [facility] [address] [place] [address] Basophils/Leukocytes Auto (Bld) [Pure # fraction] 0.2 E9/L Normal 0.0-0.2 [facility] Comment on above: Performed By: #### 2 [id number] #### [facility] [address] [place] [address] Eosinophils (Bld) [#/Vol] 0.0 E9/L Normal 0.0-0.5 [facility] Comment on above: Performed By: #### 2 [id number] #### [facility] [address] [place] [address] Eosinophils/100 WBC (Bld) 0.4 % Normal 0.0-8.0 [facility] Comment on above: Performed By: #### 2 [id number] #### [facility] [address] [place] [address] Erythrocyte distribution width (RBC) [Ratio] 14.0 % Normal 10.9-14.2 [facility] Comment on above: Performed By: #### 2 [id number] #### [facility] [address] [place] [address] Hematocrit (Bld) [Volume fraction] 37.6 % Normal 34.0-46.0 [facility] Comment on above: Performed By: #### 2 [id number] #### [facility] [address] [place] [address] Hemoglobin (Bld) [Mass/Vol] 12.8 g/dL Normal 12.0-16.0 [facility] Comment on above: Performed By: #### 2 [id number] #### [facility] [address] [place] [address] Lymphocytes (Bld) [#/Vol] 2.4 E9/L Normal 1.0-4.0 [facility] Comment on above: Performed By: #### 2 [id number] #### [facility] [address] [place] [address] Lymphocytes/100 WBC (Bld) 28.9 % Normal 14.0-50.0 [facility] Comment on above: Performed By: #### 2 [id number] #### [facility] [address] [place] [address] MCH (RBC) [Entitic mass] 33.8 pg Normal 27.0-34.0 [facility] Comment on above: Performed By: #### 2 [id number] #### [facility] [address] [place] [address] MCHC (RBC) [Mass/Vol] 34.2 g/dL Normal 31.4-36.0 [facility] Comment on above: Performed By: #### 2 [id number] #### [facility] [address] [place] [address] MCV (RBC) [Entitic vol] 98.9 fL Normal 80.0-100.0 [facility] Comment on above: Performed By: #### 2 [id number] #### [facility] [address] [place] [address] Monocytes (Bld) [#/Vol] 0.4 E9/L Normal 0.2-1.0 [facility] Comment on above: Performed By: #### 2 [id number] #### [facility] [address] [place] [address] Neutrophils (Bld) [#/Vol] 5.1 E9/L Normal 2.0-7.5 [facility] Comment on above: Performed By: #### 2 [id number] #### [facility] [address] [place] [address] Neutrophils/100 WBC (Bld) 63.2 % Normal 36.0-75.0 [facility] Comment on above: Performed By: #### 2 [id number] #### [facility] [address] [place] [address] Platelet mean volume (Bld) [Entitic vol] 9.4 fL Normal 6.4-10.8 [facility] Comment on above: Performed By: #### 2 [id number] #### [facility] [address] [place] [address] Platelets (Bld) [#/Vol] 128.0 E9/L Low 150.0-500.0 [facility] Comment on above: Performed By: #### 2 [id number] #### [facility] [address] [place] [address] RBC (Bld) [#/Vol] 3.8 E12/L Low 4.3-5.9 [facility] Comment on above: Performed By: #### 2 [id number] #### [facility] [address] [place] [address] WBC corrected for nucl RBC Auto (Bld) [#/Vol] 8.1 E9/L Normal 4.0-11.0 [facility] Comment on above: Performed By: #### 2 [id number] #### [facility] [address] [place] [address] CHEMISTRYOrdered By: SYSTEM SYSTEM on 07-05-2023 Amphetamines [...] Confirmation Requested by Physician. Called to Chilo Mclaughlin in ED at 12:05 on 07/05/23 by [...] Called to and read back by: CHILO MCLAUGHLIN at: 07/05/2023 11:45:39 by:CMK Globulin (S) [Mass/Vol] [...] 07-05-2023 Albumin [Mass/Vol] 4.1 g/dL Normal 3.3-5.0 [facility] Comment on above: Performed By: #### 2 [id number] #### [facility] [address] [place] [address] Albumin/Globulin (S) [Mass conc ratio] 1.1 Normal 1.1-2.2 [facility] Comment on above: Performed By: #### 2 [id number] #### [facility] [address] [place] [address] ALP [Catalytic activity/Vol] 111 Int._Unit/L High 21-98 [facility] Comment on above: Performed By: #### 2 [id number] #### [facility] [address] [place] [address] ALT No additional P-5'-P [Catalytic activity/Vol] 66 Int._Unit/L High 6-46 [facility] Comment on above: Performed By: #### 2 [id number] #### [facility] [address] [place] [address] Anion gap [Moles/Vol] 14 mmol/L Normal 6-16 [facility] Comment on above: Performed By: #### 2 [id number] #### [facility] [address] [place] [address] AST [Catalytic activity/Vol] 119 Int._Unit/L High 5-43 [facility] Comment on above: Performed By: #### 2 [id number] #### [facility] [address] [place] [address] Bilirubin [Mass/Vol] 0.7 mg/dL Normal 0.0-1.1 [facility] Comment on above: Performed By: #### 2 [id number] #### [facility] [address] [place] [address] Calcium [Mass/Vol] 8.9 mg/dL Normal 8.9-11.1 [facility] Comment on above: Performed By: #### 2 [id number] #### [facility] [address] [place] [address] Chloride [Moles/Vol] 108 mmol/L Normal 101-111 [facility] Comment on above: Performed By: #### 2 [id number] #### [facility] [address] [place] [address] CO2 [Moles/Vol] 23 mmol/L Normal 21-31 [facility] Comment on above: Performed By: #### 2 [id number] #### [facility] [address] [place] [address] Creatinine [Mass/Vol] 0.6 mg/dL Normal 0.5-1.3 [facility] Comment on above: Performed By: #### 2 [id number] #### [facility] [address] [place] [address] Globulin (S) [Mass/Vol] 3.8 g/dL Normal 1.4-4.0 [facility] Comment on above: Performed By: #### 2 [id number] #### [facility] [address] [place] [address] Glucose [Mass/Vol] 97 mg/dL Normal 55-199 [facility] Comment on above: Performed By: #### 2 [id number] #### [facility] [address] [place] [address] Potassium [Moles/Vol] 4.0 mmol/L Normal 3.5-5.3 [facility] Comment on above: Performed By: #### 2 500205 #### [facility] [address] [place] [address] Protein [Mass/Vol] 7.9 g/dL High 6.0-7.8 [facility] Comment on above: Performed By: #### 2 [id number] #### [facility] [address] [place] [address] Sodium [Moles/Vol] 141 mmol/L Normal 135-145 [facility] Comment on above: Performed By: #### 2 [id number] #### [facility] [address] [place] [address] Urea nitrogen [Mass/Vol] 4 mg/dL Low 5-21 [facility] Comment on above: Performed By: #### 2 [id number] #### [facility] [address] [place] [address] Urea nitrogen/Creatinine [Mass ratio] 7 No Units Low 10-20 [facility] Comment on above: Performed By: #### 2 [id number] #### [facility] [address] [place] [address] Consent for Treatmenton 06-12 Consent for Treatment [id number]#[id number] FF Normal [facility] ED Clinical Summaryon 2023 ED Clinical Summary (Inserted Image. Tracy ble to display) [address] [id number] ED Clinical Summary Person Information Name: LYLE BAILEY [facility] Age: 33 Years : 1990 Sex: Female Language: Brazilian PCP: Amanda BERNARD CNP Marital Status: Single Visit Id: Visit [...] 07/05/2023 22:01:40 07/05/2023 22:01:40 07/05/2023 22:01:40 ADDRESS: [address] [place] [id number] [facility] DOC NOTES: Addendum by Kerry Linton DO [...] alcohol intoxication; Behavior concern in adult Normal [facility] ED Note-Nursingon 07-05-2023 ED Note-Nursing [facility] arrives to transport pt to [facility]. attempting to call report to [facility] at this time Normal [facility] ED Note-Physicianon 07-05-19 ED Note-Physician Basic Information Time Seen: Isai Hall DOCharisma 07/05/2023 10:41 Chief Complaint pt presents via [...] 150 mg (more content not included)... Normal [facility] Comment on above: Result Comment: Elec tronically Signed By: Kerry Linton DO\.br\Date and Time Signed: 07/05/23 20:54 EDT ED Patient Education Noteon 07-05-2023 ED Patient Education Note Normal [facility] ED Patient Summaryon 024 ED Patient Summary (Inserted Image. Tracy ble to display) [place] [id number] Patient Discharge Instructions Person Information Name: LYLE BAILEY Age: 33 Years Arrival Date: 07/05/2023 10:35:06 Discharge Diagnosis: Acute alcohol intoxication; Behavior concern in adult Primary Care Physician: Amanda BERNARD CNP Provider Information Primary Provider: Isai Hall DO Advanced Bean Snapper:None The exam and treatment you received in the Emergency Department were for an urgent problem and are not intended as complete care. It is important that you follow up with a doctor, nurse practitioner, or physician?s assistant plant manager for ongoing care. If your symptoms become [...] opioids can be used to help relieve qkjdokum-jm-drpcxh pain and are often prescribed following a [...] be struggling with addiction, tell your health managed care liaison and ask for guidance or call [facility]?S National Helpline at 5-285-557-HELP. v Source: [place] Department of Health and Human Services/Center for Disease Control & Prevention [facility] Medications Given: Me (more content not included)... Normal [facility] Ethanolon 07-05-2023 Ethanol Lvl 240 mg/dL Abnormal <=11 [facility] Comment on above: Result Comment: Crit ical Result Verified by Repeat Analysis Critical Result [id number] Called to and read back by: CHILO MCLAUGHLIN at: 07/05/2023 11:45:39 by:CALLIE Performed By: #### 2 [id number] #### [facility] [address] [place] [address] HEMATOLOGYOrdered By: SYSTEM SYSTEM on 07-05-2023 Basophils/100 [...] Remisol Heme Outside Recordson 07-05-2023 Outside Records [id number]#[id number] FF Normal [facility] SEROLOGYOrdered By: Monica Earl on 07-05-2023 Beta HCG ( test) Ql Negative (07/05/23 11:03 AM) Normal [facility] Man Sero Transfer Documentson 024 Transfer Documents [id number]#[id number] FF Normal [facility] U Drug Screenon 07-05-2023 Amphetamines Screen method >1000 ng/mL Ql (U) Negative Normal NEGATIVE [facility] Comment on above: Result Comment: Nega tive Cutoff: <1000 ng/mL Performed By: #### 2 [id number] #### [facility] [address] [place] [address] Barbiturates Screen Ql (U) Positive Abnormal NEGATIVE [facility] Comment on above: Result Comment: Resu lt verified by repeat analysis, Unconfirmed by alternate method No Confirmation Requested by Physician. Called to Chilo Mclaughlin in ED at 12:05 on 07/05/23 by cmk. Negative Cutoff: <200 ng/mL Performed By: #### 2 [id number] #### [facility] [address] [place] [address] Benzodiazepines Ql (U) Negative Normal NEGATIVE [facility] Comment on above: Result Comment: Nega tive Cutoff: <200 ng/mL Performed By: #### 2 [id number] #### [facility] [address] [place] [address] Cannabinoids Screen Ql (U) Negative Normal NEGATIVE [facility] Comment on above: Result Comment: Nega tive Cutoff: <50 ng/mL Performed By: #### 2 [id number] #### [facility] [address] [place] [address] Cocaine Ql (U) Negative Normal NEGATIVE [facility] Comment on above: Result Comment: Nega tive Cutoff: <300 ng/mL Performed By: #### 2 [id number] #### [facility] [address] [place] [address] Opiates Screen Ql (U) Negative Normal NEGATIVE [facility] Comment on above: Result Comment: Nega tive Cutoff: <300 ng/mL Performed By: #### 2 [id number] #### [facility] [address] [place] [address] Phencyclidine Screen method >25 ng/mL Ql (U) Negative Normal NEGATIVE [facility] Comment on above: Result Comment: Nega tive Cutoff: <25 ng/mL These drug screen results are to be used for medical (i.e., treatment) purposes only. Unconfirmed drug screening results must not be used for non-medical purposes (e.g., employment testing, legal testing). Performed By: #### 2 [id number] #### [facility] [address] [place] [address] U Fentanyl Negative Normal NEGATIVE [facility] Comment on above: Result Comment: Nega tive Cutoff: <5 ng/mL These drug screen results are to be used for medical (i.e., treatment) purposes only. Unconfirmed drug screening results must not be used for non-medical purposes (e.g., employment testing, legal testing). Performed By: #### 2 [id number] #### [facility] [address] [place] [address] UA with Cult Rflxon 07-05-19 24 Bilirubin Ql (U) Negative Normal Negative [facility] Comment on above: Performed By: #### 4 [id number] #### [facility] [address] [place] [address] Clarity (U) Clear Normal Clear [facility] Comment on above: Performed By: #### 4 [id number] #### [facility] [address] [place] [address] Color (U) Yellow Normal Yellow [facility] Comment on above: Result Comment: Micr oscopic readings are only performed on those samples that meet specific criteria set forth by [facility]. Performed By: #### 4 [id number] #### [facility] [address] [place] [address] Glucose Ql (U) Negative Normal Negative [facility] Comment on above: Performed By: #### 4 [id number] #### [facility] [address] [place] [address] Hemoglobin Auto test strip (U) [Mass/Vol] Negative Normal Negative [facility] Comment on above: Performed By: #### 4 [id number] #### [facility] [address] [place] [address] Ketones Auto test strip Ql (U) Negative Normal Negative [facility] Comment on above: Performed By: #### 4 [id number] #### [facility] [address] [place] [address] Leukocyte esterase Auto test strip Ql (U) Negative Normal Negative [facility] Comment on above: Performed By: #### 4 [id number] #### [facility] [address] [place] [address] Nitrite Auto test strip Ql (U) Negative Normal Negative [facility] Comment on above: Performed By: #### 4 [id number] #### [facility] [address] [place] [address] pH (U) 7.0 [pH] Invalid Interpretation Code 5.0-9.0 [facility] Comment on above: Performed By: #### 4 [id number] #### [facility] [address] [place] [address] Protein Ql (U) Negative Normal Negative [facility] Comment on above: Performed By: #### 4 [id number] #### [facility] [address] [place] [address] Specific gravity (U) [Rel density] 1.012 Invalid Interpretation Code 1.005-1.030 [facility] Comment on above: Performed By: #### 4 [id number] #### [facility] [address] [place] [address] Urobilinogen (U) [Mass/Vol] 4 mg/dL Abnormal Negative [facility] Comment on above: Performed By: #### 4 [id number] #### [facility] [address] [place] [address] Type of Urine collection method Clean Catch Normal [facility] Comment on above: Performed By: #### 4 [id number] #### [facility] [address] [place] [address] URINALYSISOrdered By: SYSTEM SYSTEM on 07-05-2023 Bilirubin Ql (U) Negative Normal Negativemg/ d L [facility] [place] UA Auto SS Clarity (U) Clear (07/05/23 11:21 AM) Normal Clear [facility] UA Auto SS Color (U) Yellow 3 (07/05/23 11:21 AM) Normal Yellow [facility] UA Auto SS Comment on above: Interpretive Data: M icroscopic readings are only performed on those samples that meet specific criteria set forth by [facility]. Glucose Ql (U) Negative Normal [...] 07-05-2023 eGFR 123 mL/min/1.73 m2 Normal >=59 [facility] Comment on above: Order Comment: Order added by Discern Expert. Performed By: #### 1 [id number] #### [facility] [address] [place] [address] BMPon 07-03-2023 Anion gap [Moles/Vol] 15 mmol/L Normal 6-16 [facility] Comment on above: Performed By: #### 2 [id number] #### [facility] [address] [place] [address] Calcium [Mass/Vol] 9.3 mg/dL Normal 8.9-11.1 [facility] Comment on above: Performed By: #### 2 [id number] #### [facility] [address] [place] [address] Chloride [Moles/Vol] 99 mmol/L Low 101-111 [facility] Comment on above: Performed By: #### 2 [id number] #### [facility] [address] [place] [address] CO2 [Moles/Vol] 24 mmol/L Normal 21-31 [facility] Comment on above: Performed By: #### 2 [id number] #### [facility] [address] [place] [address] Creatinine [Mass/Vol] 0.6 mg/dL Normal 0.5-1.3 [facility] Comment on above: Performed By: #### 2 [id number] #### [facility] [address] [place] [address] Glucose [Mass/Vol] 92 mg/dL Normal 55-199 [facility] Comment on above: Performed By: #### 2 [id number] #### [facility] [address] [place] [address] Potassium [Moles/Vol] 3.9 mmol/L Normal 3.5-5.3 [facility] Comment on above: Performed By: #### 2 [id number] #### [facility] [address] [place] [address] Sodium [Moles/Vol] 134 mmol/L Low 135-145 [facility] Comment on above: Performed By: #### 2 [id number] #### [facility] [address] [place] [address] Urea nitrogen [Mass/Vol] 3 mg/dL Low 5-21 [facility] Comment on above: Performed By: #### 2 [id number] #### [facility] [address] [place] [address] Urea nitrogen/Creatinine [Mass ratio] 5 No Units Low 10-20 [facility] Comment on above: Performed By: #### 2 [id number] #### [facility] [address] [place] [address] CBC w/ Auto Diffon 4 Basophils/100 WBC (Bld) 0.3 % Normal 0.0-2.0 [facility] Comment on above: Performed By: #### 2 [id number] #### [facility] [address] [place] [address] Basophils/Leukocytes Auto (Bld) [Pure # fraction] 0.0 E9/L Normal 0.0-0.2 [facility] Comment on above: Performed By: #### 2 [id number] #### [facility] [address] [place] [address] Eosinophils (Bld) [#/Vol] 0.1 E9/L Normal 0.0-0.5 [facility] Comment on above: Performed By: #### 2 [id number] #### [facility] [address] [place] [address] Eosinophils/100 WBC (Bld) 1.5 % Normal 0.0-8.0 [facility] Comment on above: Performed By: #### 2 [id number] #### [facility] [address] [place] [address] Erythrocyte distribution width (RBC) [Ratio] 14.0 % Normal 10.9-14.2 [facility] Comment on above: Performed By: #### 2 [id number] #### [facility] [address] [place] [address] Hematocrit (Bld) [Volume fraction] 39.3 % Normal 34.0-46.0 [facility] Comment on above: Performed By: #### 2 [id number] #### [facility] [address] [place] [address] Hemoglobin (Bld) [Mass/Vol] 13.2 g/dL Normal 12.0-16.0 [facility] Comment on above: Performed By: #### 2 [id number] #### [facility] [address] [place] [address] Lymphocytes (Bld) [#/Vol] 1.6 E9/L Normal 1.0-4.0 [facility] Comment on above: Performed By: #### 2 [id number] #### [facility] [address] [place] [address] Lymphocytes/100 WBC (Bld) 33.5 % Normal 14.0-50.0 [facility] Comment on above: Performed By: #### 2 [id number] #### [facility] [address] [place] [address] MCH (RBC) [Entitic mass] 33.7 pg Normal 27.0-34.0 [facility] Comment on above: Performed By: #### 2 [id number] #### [facility] [address] [place] [address] MCHC (RBC) [Mass/Vol] 33.5 g/dL Normal 31.4-36.0 [facility] Comment on above: Performed By: #### 2 [id number] #### [facility] [address] [place] [address] MCV (RBC) [Entitic vol] 100.6 fL High 80.0-100.0 [facility] Comment on above: Performed By: #### 2 [id number] #### [facility] [address] [place] [address] Monocytes (Bld) [#/Vol] 0.2 E9/L Normal 0.2-1.0 [facility] Comment on above: Performed By: #### 2 863609 #### [facility] [address] [place] [address] Neutrophils (Bld) [#/Vol] 2.8 E9/L Normal 2.0-7.5 [facility] Comment on above: Performed By: #### 2 827286 #### [facility] [address] [place] [address] Neutrophils/100 WBC (Bld) 59.5 % Normal 36.0-75.0 [facility] Comment on above: Performed By: #### 2 [id number] #### [facility] [address] [place] [address] Platelet 126.0 E9/L Low 150.0-500.0 [facility] Comment on above: Performed By: #### 2 [id number] #### [facility] [address] [place] [address] Platelet mean volume (Bld) [Entitic vol] 8.9 fL Normal 6.4-10.8 [facility] Comment on above: Performed By: #### 2 [id number] #### [facility] [address] [place] [address] RBC (Bld) [#/Vol] 3.9 E12/L Low 4.3-5.9 [facility] Comment on above: Performed By: #### 2 [id number] #### [facility] [address] [place] [address] WBC corrected for nucl RBC Auto (Bld) [#/Vol] 4.7 E9/L Normal 4.0-11.0 [facility] Comment on above: Performed By: #### 2 [id number] #### [facility] [address] [place] [address] CHEMISTRYOrdered By: SYSTEM SYSTEM on 07-03-2023 Amphetamines [...] 109 mg/dL High 55 - 99 mg/dL [facility] [place] [place] POC Subsection Comment on above: Result Comment: Seema bo Meter POC Device SN [id number] Invalid Interpretation Code [facility] [place] POC Subsection POC User ID [id number] 1 Invalid Interpretation Code [facility] [place] POC Subsection POC Username HUA BETTS Invalid Interpretation Code [facility] [place] POC Subsection CHEMISTRYOrdered By: Paty Clark on 07-03-2023 Albumin [Mass/Vol] 4.1 g/dL Normal 3.3 - 5.0 gm/dL [facility] [place] Chem S Albumin/Globulin [Mass ratio] 1.2 {ratio} Normal 1.1 - 2.2 [facility] [place] Chem S ALP [Catalytic activity/Vol] 105 [iU]/d High 21 - 98 Int._Unit/L [facility] [place] Chem S ALT No additional P-5'-P [Catalytic activity/Vol] 86 [iU]/d High 6 - 46 Int._Unit/L [facility] [place] Chem S Anion gap [Moles/Vol] 15 mmol/L Normal 6 - 16 mEq/L [facility] Chem S AST [Catalytic activity/Vol] 132 [iU]/d High 5 - 43 Int._Unit/L [facility] [place] Chem S Bilirubin [Mass/Vol] 0.9 mg/dL Normal 0.0 - 1 .1 mg/dL [facility] [place] Chem S Bilirubin.direct [Mass/Vol] 0.3 mg/dL Normal 0.0 - 0.4 mg/dL [facility] [place] Chem S Bilirubin.indirect [Mass or moles/Vol] 0.6 mg/dL Normal 0.1 - 0.9 mg/dL [facility] [place] Chem S Calcium [Mass/Vol] 9.3 mg/dL Normal 8.9 - 11. 1 mg/dL [facility] [place] Chem S Chloride [Moles/Vol] 99 mmol/L Low 101 - 1 11 mmol/L [facility] [place] Chem S CO2 [Moles/Vol] 24 mmol/L Normal 21 - 31 mmol/L [facility] [place] Chem S Creatinine [Mass/Vol] 0.6 mg/dL Normal 0.5 - 1.3 mg/dL [facility] [place] Chem S eGFR 132 mL/min/1.73 m2 Normal >=59mL/mi n/1 .73 m2 [facility] [place] Chem S Ethanol Lvl mg/dL Normal <=11mg/dL [facility] [place] Chem S Globulin (S) [Mass/Vol] 3.4 g/dL Normal 1.4 - 4.0 gm/dL [facility] [place] Chem S Glucose [Mass/Vol] 92 mg/dL Normal 55 - 199 mg/dL [facility] [place] Chem S Magnesium [Mass/Vol] 1.5 mg/dL Normal 1.3 - 2 .4 mg/dL [facility] [place] Chem S Potassium [Moles/Vol] 3.9 mmol/L Normal 3.5 - 5.3 mmol/L [facility] [place] Chem S Protein [Mass/Vol] 7.5 g/dL Normal 6.0 - 7.8 gm/dL [facility] [place] Chem S Sodium [Moles/Vol] 134 mmol/L Low 135 - 145 mmol/L [facility] [place] Chem S Urea nitrogen [Mass/Vol] 3 mg/dL Low 5 - 21 mg/dL [facility] [place] Chem S Urea nitrogen/Creatinine [Mass ratio] 5 mg/mg Low 10 - 20 [facility] [place] Chem S Capillary Glucose POCon 06-12 Glucose [Mass/Vol] 109 mg/dL High 55-99 [facility] Comment on above: Result Comment: Seema soriano Meter Performed By: #### 2 [id number] #### [facility] [address] [place] [address] Consent for Treatmenton 06-12 Consent for Treatment [id number] FF Normal [facility] Discharge Instructionson Discharge Instructions [id number] FF Normal [facility] ED Clinical Summaryon 2023 ED Clinical Summary (Inserted Image. Tracy ble to display) [address] [address] ED Clinical Summary Person Information Name: LYLE BAILEY [facility] Age: 33 Years : 1990 Sex: Female Language: Brazilian PCP: Amanda BERNARD CNP Marital Status: Single Visit Id: Visit [...] 07/03/2023 10:49:08 07/03/2023 10:49:08 07/03/2023 10:49:08 ADDRESS: [address] [place] [id number] PHYS DOC NOTES: MEDICAL INFORMATION: Prescriptions Given: [...] day. PATIENT EDUCATION INFORMATION: Instructions: Seizure, Adult, Casz-te-Iued; Alcohol Withdrawal Syndrome, Usow-tc-Gmbo Follow up: With: Address: When: Amanda BERNARD [address] [place], [place] [phone] Business (1) Within 1 to 2 days, only if needed DIAGNOSIS: 1:Alcohol withdrawal seizure; Unspecified convulsions Normal [facility] ED Note-Physicianon 07-03-19 ED Note-Physician Basic [...] medications Follow-up With When Contact Information Amanda BERNARD Within 1 to 2 days, only if needed [address] [place] [address]- Code Rebel (1) Additional Instructions: Patient Education Seizure, Adult, Uawn-wh-Urfg Alcohol Withdrawal Syndrome, Vgmm-md-Wojt Problem List/Past Medical History Ongoing Alcohol abuse [...] cigarettes (1 (more content not included)... Normal [facility] Comment on above: Result Comment: Elec tronically Signed By: Bridger SINGLETARY, Kaushik\.br\Date and Time Signed: 07/03/23 10:45 [...] Follow these instructions at home: ? Take xigy-dck-txahgtf and prescription medicines only as told by [...] provider. Document Revised: 04/11/2022 Document Reviewed: 04/11/2022 [employer] Patient Education ? 2022 [employer] Neurology Seizure, Adult A seizure is [...] clear cau (more content not included)... Normal [facility] ED Patient Summaryon 024 ED Patient Summary (Inserted Image. Tracy ble to display) [address] [address] Patient Discharge Instructions Person Information Name: LYLE BAILEY Age: 33 Years Arrival Date: 07/03/2023 07:31:19 Discharge Diagnosis: 1:Alcohol withdrawal seizure; Unspecified convulsions Primary Care Physician: Amanda BERNARD CNP Provider Information Primary Provider: Kaushik Sparks MD Advanced Bean Snapper:None The exam and treatment you received in the Emergency Department were for an urgent problem and are not intended as complete care. It is important that you follow up with a doctor, nurse practitioner, or physician?s assistant plant manager for ongoing care. If your symptoms become worse or you do not improve as expected and you are unable to reach your usual health care provider, you should return to the Emergency Department. We are available 24 hours a day. LYLE BAILEY has been given the following list of patient education materials, prescriptions and follow-up instructions: Follow-up Instructions: With: Address: When: Amanda BERNARD [address] [place] [phone] Business (1) Within 1 to 2 days, only if needed In the event that this physician does not participate in your insurance network, please consult with your insurance company to find a nearby participating provider. Patient Education Materials: Seizure, Adult, Hria-if-Nlhh; Alcohol Withdrawal Syndrome, Kbrs-kf-Dlxo A MESSAGE TO ALL PATIENTS REGARDING OPIOIDS PRESCRIPTION OPIOIDS: WHAT YOU NEED TO KNOW Prescription opioids can be used to help relieve yjglnhtk-bv-icaofz pain and are often prescribed following a [...] be struggling with addiction, tell your health managed care liaison and ask for guidance or ca (more content not included)... Normal [facility] EMS Documentationon 07-03-19 24 EMS Documentation Please click on link to see report Normal [facility] Comment on above: Result Comment: Miss ing Attachment - total size limit for all attachments exceeded [email or web address] Can be viewed in source system Ethanolon 07-03-2023 Ethanol Lvl <10 Normal <=11 [facility] Comment on above: Performed By: #### 2 [id number] #### [facility] [address] [place] [address] HEMATOLOGYOrdered By: SYSTEM SYSTEM on 07-03-2023 Basophils/100 [...] 07-03-2023 Albumin [Mass/Vol] 4.1 g/dL Normal 3.3-5.0 [facility] Comment on above: Performed By: #### 2 [id number] #### [facility] [address] [place] [address] Albumin/Globulin (S) [Mass conc ratio] 1.2 Normal 1.1-2.2 [facility] Comment on above: Performed By: #### 2 [id number] #### [facility] [address] [place] [address] ALP [Catalytic activity/Vol] 105 Int._Unit/L High 21-98 [facility] Comment on above: Performed By: #### 2 [id number] #### [facility] [address] [place] [address] ALT No additional P-5'-P [Catalytic activity/Vol] 86 Int._Unit/L High 6-46 [facility] Comment on above: Performed By: #### 2 [id number] #### [facility] [address] [place] [address] AST [Catalytic activity/Vol] 132 Int._Unit/L High 5-43 [facility] Comment on above: Performed By: #### 2 [id number] #### [facility] [address] [place] [address] Bilirubin [Mass/Vol] 0.9 mg/dL Normal 0.0-1.1 [facility] Comment on above: Performed By: #### 2 [id number] #### [facility] [address] [place] [address] Bilirubin.direct [Mass/Vol] 0.3 mg/dL Normal 0.0-0.4 [facility] Comment on above: Performed By: #### 2 [id number] #### [facility] [address] [place] [address] Bilirubin.indirect [Mass or moles/Vol] 0.6 mg/dL Normal 0.1-0.9 [facility] Comment on above: Performed By: #### 2 [id number] #### [facility] [address] [place] [address] Globulin (S) [Mass/Vol] 3.4 g/dL Normal 1.4-4.0 [facility] Comment on above: Performed By: #### 2 [id number] #### [facility] [address] [place] [address] Protein [Mass/Vol] 7.5 g/dL Normal 6.0-7.8 [facility] Comment on above: Performed By: #### 2 [id number] #### [facility] [address] [place] [address] Magnesiumon 07-03-2023 Magnesium [Mass/Vol] 1.5 mg/dL Normal 1.3-2.4 [facility] Comment on above: Performed By: #### 2 [id number] #### [facility] [address] [place] [address] Pre-Arrival Noteon Pre-Arrival Note Pre-Arrival Summary Name: britany Current Date: 07/03/2023 07:31:40 EDT Gender: Female Date of : Age: 32 Pre-Arrival Type: EMS ETA: 07/03/2023 07:50:00 EDT Primary Care Physician: Presenting Problem: pseudoseizure Pre-Arrival User: Chilo Funes RN Referring Source: Location: [place] Completion Date/Time: 07/03/2023 07:20:00 [facility] Emergency Department Pre-Hospital Report Form Vital Signs: Pre-Hospital Report: Treatment in Route: Response to Treatment: Misc. Issues: Normal [facility] U Drug Screenon 07-03-2023 Amphetamines Screen method >1000 ng/mL Ql (U) Negative Normal NEGATIVE [facility] Comment on above: Result Comment: Nega tive Cutoff: <1000 ng/mL Performed By: #### 2 [id number] #### [facility] [address] [place] [address] Barbiturates Screen Ql (U) Negative Normal NEGATIVE [facility] Comment on above: Result Comment: Nega tive Cutoff: <200 ng/mL Performed By: #### 2 [id number] #### [facility] [address] [place] [address] Benzodiazepines Ql (U) Negative Normal NEGATIVE [facility] Comment on above: Result Comment: Nega tive Cutoff: <200 ng/mL Performed By: #### 2 [id number] #### [facility] [address] [place] [address] Cannabinoids Screen Ql (U) Negative Normal NEGATIVE [facility] Comment on above: Result Comment: Nega tive Cutoff: <50 ng/mL Performed By: #### 2 [id number] #### [facility] [address] [place] [address] Cocaine Ql (U) Negative Normal NEGATIVE [facility] Comment on above: Result Comment: Nega tive Cutoff: <300 ng/mL Performed By: #### 2 [id number] #### [facility] [address] [place] [address] Opiates Screen Ql (U) Negative Normal NEGATIVE [facility] Comment on above: Result Comment: Nega tive Cutoff: <300 ng/mL Performed By: #### 2 [id number] #### [facility] [address] [place] [address] Phencyclidine Screen method >25 ng/mL Ql (U) Negative Normal NEGATIVE [facility] Comment on above: Result Comment: Nega tive Cutoff: <25 ng/mL These drug screen results are to be used for medical (i.e., treatment) purposes only. Unconfirmed drug screening results must not be used for non-medical purposes (e.g., employment testing, legal testing). Performed By: #### 2 [id number] #### [facility] [address] [place] [address] U Fentanyl Positive Abnormal NEGATIVE [facility] Comment on above: Result Comment: No [...] testing, legal testing). Performed By: #### 2 [id number] #### [facility] [address] [place] [address] eGFRon 07-03-2023 eGFR 132 mL/min/1.73 m2 Normal >=59 [facility] Comment on above: Order Comment: Order added by Discern Expert. Performed By: #### 1 [id number] #### [facility] [address] [place] [address] Discharge Instructionson Discharge Instructions [id number] FF Normal [facility] ED Clinical Summaryon 2023 ED Clinical Summary (Inserted Image. Tracy ble to display) [address] [address] ED Clinical Summary Person Information Name: LYLE BAILEY [facility] Age: 33 Years : 1990 Sex: Female Language: Brazilian PCP: Amanda BERNARD CNP Marital Status: Single Visit Id: Visit [...] 06/30/2023 23:51:55 06/30/2023 23:51:55 06/30/2023 23:51:55 ADDRESS: [address] [place] [phone] PHYS DOC NOTES: MEDICAL INFORMATION: Prescriptions Given: [...] Intoxication Follow up: With: Address: When: Amanda BERNARD [address] [phone] Business (1) In 3 days DIAGNOSIS: Acute alcohol intoxication; Drinking binge [facility] ED Note-Physicianon 07-01-19 ED Note-Physician Patient seen [...] will follow-up with her primary care physician. [facility] Comment on above: Result Comment: Ross matt Signed By: Darren Guzman DO\.br\Date and Time Signed: 06/30/23 23:41 EDT ED [...] between alcoholic drinks. General instructions ? Take gfrc-lnv-lnxhapz and prescription medicines only as told by your health care provider. ? Do not drive after drinking any amount of alcohol. Plan for a designated hyster driver or another way to go home. ? Have someone responsible stay with you while you are intoxicated. You should notbe left alone. Contac (more content not included)... Normal [facility] ED Patient Summaryon 024 ED Patient Summary (Inserted Image. Tracy ble to display) [address] [address] Patient Discharge Instructions Person Information Name: LYLE BAILEY Age: 33 Years Arrival Date: 06/30/2023 13:42:59 Discharge Diagnosis: Acute alcohol intoxication; Drinking binge Primary Care Physician: Amanda BERNARD CNP Provider Information Primary Provider: Isai Hall DO Advanced Bean Snapper:None The exam and treatment you received in the Emergency Department were for an urgent problem and are not intended as complete care. It is important that you follow up with a doctor, nurse practitioner, or physician?s assistant plant manager for ongoing care. If your symptoms become worse or you do not improve as expected and you are unable to reach your usual health care provider, you should return to the Emergency Department. We are available 24 hours a day. LYLE BAILEY has been given the following list of patient education materials, prescriptions and follow-up instructions: Follow-up Instructions: With: Address: When: Amanda BERNARD [address] [place] [address] [facility] (1) In 3 days In the event that this physician does not participate in your insurance network, please consult with your insurance company to find a nearby participating provider. Patient Education Materials: Alcohol Intoxication A MESSAGE TO ALL PATIENTS REGARDING OPIOIDS PRESCRIPTION OPIOIDS: WHAT YOU NEED TO KNOW Prescription opioids can be used to help relieve przhdejq-yp-ymvsnt pain and are often prescribed following a [...] be struggling with addiction, tell your health managed care liaison and ask for guidance or call [facility]?S National Helpline at 9-435-283-CMJY. i Source: Department of (more content not included)... Normal [facility] B hCG Qualon 06-30-2023 Beta HCG ( test) Ql Negative Normal [facility] Comment on above: Performed By: #### 2 [id number] #### [facility] [address] [place] [address] BMPon 06-30-2023 Anion gap [Moles/Vol] 19 mmol/L High 6-16 [facility] Comment on above: Performed By: #### 2 [id number] #### [facility] [address] [place] [address] Calcium [Mass/Vol] 8.9 mg/dL Normal 8.9-11.1 [facility] Comment on above: Performed By: #### 2 [id number] #### [facility] [address] [place] [address] Chloride [Moles/Vol] 98 mmol/L Low 101-111 [facility] Comment on above: Performed By: #### 2 [id number] #### [facility] [address] [place] [address] CO2 [Moles/Vol] 25 mmol/L Normal 21-31 [facility] Comment on above: Performed By: #### 2 [id number] #### [facility] [address] [place] [address] Creatinine [Mass/Vol] 0.6 mg/dL Normal 0.5-1.3 [facility] Comment on above: Performed By: #### 2 [id number] #### [facility] [address] [place] [address] Glucose [Mass/Vol] 88 mg/dL Normal 55-199 [facility] Comment on above: Performed By: #### 2 298684 #### [facility] [address] [place] [address] Potassium [Moles/Vol] 4.0 mmol/L Normal 3.5-5.3 [facility] Comment on above: Performed By: #### 2 829673 #### [facility] [address] [place] [address] Sodium [Moles/Vol] 138 mmol/L Normal 135-145 [facility] Comment on above: Performed By: #### 2 546702 #### [facility] [address] [place] [address] Urea nitrogen [Mass/Vol] 6 mg/dL Normal 5-21 [facility] Comment on above: Performed By: #### 2 375046 #### [facility] [address] [place] [address] Urea nitrogen/Creatinine [Mass ratio] 10 No Units Normal 10-20 [facility] Comment on above: Performed By: #### 2 387175 #### [facility] [address] [place] [address] CBC w/ Auto Diffon 4 Basophils/100 WBC (Bld) 0.7 % Normal 0.0-2.0 [facility] Comment on above: Performed By: #### 2 014524 #### [facility] [address] [place] [address] Basophils/Leukocytes Auto (Bld) [Pure # fraction] 0.1 E9/L Normal 0.0-0.2 [facility] Comment on above: Performed By: #### 2 225003 #### [facility] [address] [place] [address] Eosinophils (Bld) [#/Vol] 0.0 E9/L Normal 0.0-0.5 [facility] Comment on above: Performed By: #### 2 602793 #### [facility] [address] [place] [address] Eosinophils/100 WBC (Bld) 0.2 % Normal 0.0-8.0 [facility] Comment on above: Performed By: #### 2 795067 #### [facility] [address] [place] [address] Erythrocyte distribution width (RBC) [Ratio] 14.1 % Normal 10.9-14.2 [facility] Comment on above: Performed By: #### 2 038657 #### [facility] [address] [place] [address] Hematocrit (Bld) [Volume fraction] 43.9 % Normal 34.0-46.0 [facility] Comment on above: Performed By: #### 2 960313 #### [facility] [address] [place] [address] Hemoglobin (Bld) [Mass/Vol] 15.3 g/dL Normal 12.0-16.0 [facility] Comment on above: Performed By: #### 2 948796 #### [facility] [address] [place] [address] Lymphocytes (Bld) [#/Vol] 2.7 E9/L Normal 1.0-4.0 [facility] Comment on above: Performed By: #### 2 306287 #### [facility] [address] [place] [address] Lymphocytes/100 WBC (Bld) 34.3 % Normal 14.0-50.0 [facility] Comment on above: Performed By: #### 2 181262 #### [facility] [address] [place] [address] MCH (RBC) [Entitic mass] 34.1 pg High 27.0-34.0 [facility] Comment on above: Performed By: #### 2 298953 #### [facility] [address] [place] [address] MCHC (RBC) [Mass/Vol] 34.8 g/dL Normal 31.4-36.0 [facility] Comment on above: Performed By: #### 2 712807 #### [facility] [address] [place] [address] MCV (RBC) [Entitic vol] 97.9 fL Normal 80.0-100.0 [facility] Comment on above: Performed By: #### 2 337634 #### [facility] [address] [place] [address] Monocytes (Bld) [#/Vol] 0.3 E9/L Normal 0.2-1.0 [facility] Comment on above: Performed By: #### 2 502835 #### [facility] [address] [place] [address] Neutrophils (Bld) [#/Vol] 4.8 E9/L Normal 2.0-7.5 [facility] Comment on above: Performed By: #### 2 936942 #### [facility] [address] [place] [address] Neutrophils/100 WBC (Bld) 61.2 % Normal 36.0-75.0 [facility] Comment on above: Performed By: #### 2 312412 #### [facility] [address] [place] [address] Platelet mean volume (Bld) [Entitic vol] 8.5 fL Normal 6.4-10.8 [facility] Comment on above: Performed By: #### 2 225512 #### [facility] [address] [place] [address] Platelets (Bld) [#/Vol] 202.0 E9/L Normal 150.0-500.0 [facility] Comment on above: Performed By: #### 2 146045 #### [facility] [address] [place] [address] RBC (Bld) [#/Vol] 4.5 E12/L Normal 4.3-5.9 [facility] Comment on above: Performed By: #### 2 491063 #### [facility] [address] [place] [address] WBC corrected for nucl RBC Auto (Bld) [#/Vol] 7.9 E9/L Normal 4.0-11.0 [facility] Comment on above: Performed By: #### 2 549770 #### [facility] [address] [place] [address] CHEMISTRYOrdered By: SYSTEM SYSTEM on 06-30-2023 Amphetamines [...] Lexi Ewing in ED at 1537 by k Interpretive Data: N egative Cutoff: <5 ng/mL [...] Consent for Treatmenton 06-11 Consent for Treatment [id number] FF Normal [facility] ED Note-Physicianon 06-30-19 ED Note-Physician Basic Information Time Seen: Rafael AGUILAR Isai M. 06/30/2023 13:43 Chief Complaint Pt intoxicated. admits [...] triage vital signs. GENERAL: Tearful adult female geoff NEURO: Alert and oriented x3. Moves all [...] 2 mg/mL Injection, 1 mg, IV Push [id number] [F], 50 mg, IV Push Haldol 5 mg/mL Injection, 5 mg, IntraMuscular NS 1000 ml Bolus, 1000 mL, IV Sodium Chloride 0.9% IV Paula 50 mL [F] 50 mL + [id number] [F] 100 mg, IV Piggyback Zofran 4 mg/2 mL Injection, 4 mg, IV Push Disposition Plan Patient Discharge Condition Stable Discharge Prescription List Prescriptions No active prescription medications Follow-up No qualifying data available Problem List/Past Medical History Ongoin (more content not included)... Normal [facility] Comment on above: Result Comment: Elec tronically Signed By: Isai Hall DO\Date and Time Signed: 06/30/23 18:08 EDT Ethanolon 06-30-2023 Ethanol Lvl 437 mg/dL Abnormal <=11 [facility] Comment on above: Result Comment: Crit ical Result Verified by Repeat Analysis Critical Result S_[id number] Called to and read back by: LEXI EWING at: 06/30/2023 15:36:41 by:CALLIE Performed By: #### 2 [id number] #### [facility] [address] [place] [address] HEMATOLOGYOrdered By: SYSTEM SYSTEM on 06-30-2023 Basophils/100 [...] 06-30-2023 Albumin [Mass/Vol] 4.4 g/dL Normal 3.3-5.0 [facility] Comment on above: Performed By: #### 2 809478 #### [facility] [address] [place] [address] Albumin/Globulin (S) [Mass conc ratio] 1.2 Normal 1.1-2.2 [facility] Comment on above: Performed By: #### 2 052047 #### [facility] [address] [place] [address] ALP [Catalytic activity/Vol] 133 Int._Unit/L High 21-98 [facility] Comment on above: Performed By: #### 2 455641 #### [facility] [address] [place] [address] ALT No additional P-5'-P [Catalytic activity/Vol] 135 Int._Unit/L High 6-46 [facility] Comment on above: Performed By: #### 2 384293 #### [facility] [address] [place] [address] AST [Catalytic activity/Vol] 312 Int._Unit/L High 5-43 [facility] Comment on above: Performed By: #### 2 865192 #### [facility] [address] [place] [address] Bilirubin [Mass/Vol] 0.8 mg/dL Normal 0.0-1.1 [facility] Comment on above: Performed By: #### 2 040080 #### [facility] [address] [place] [address] Bilirubin.direct [Mass/Vol] 0.3 mg/dL Normal 0.0-0.4 [facility] Comment on above: Performed By: #### 2 270826 #### [facility] [address] [place] [address] Bilirubin.indirect [Mass or moles/Vol] 0.5 mg/dL Normal 0.1-0.9 [facility] Comment on above: Performed By: #### 2 563793 #### [facility] [address] [place] [address] Globulin (S) [Mass/Vol] 3.6 g/dL Normal 1.4-4.0 [facility] Comment on above: Performed By: #### 2 134861 #### [facility] [address] [place] [address] Protein [Mass/Vol] 8.0 g/dL High 6.0-7.8 [facility] Comment on above: Performed By: #### 2 458679 #### [facility] [address] [place] [address] Pre-Arrival Noteon Pre-Arrival Note Normal [facility] Progress Note-Nurseon 2023 Progress Note-Nurse Pt still resting. no outbursts Normal [facility] Progress Note-Nurse Pt resting and no lo nger belligerent Normal [facility] Progress Note-Nurse Pt accidentally ripp ed out iv. will not keep vital equipment attached. Normal [facility] Progress Note-Nurse not leaving vitals machine on. will wait til pt more calm to leave equipment on Normal [facility] SEROLOGYOrdered By: Ori Otero on 06-30-2023 Beta HCG ( test) Ql Negative (06/30/23 2:42 PM) Normal [facility] Man Sero U Drug Screenon 06-30-2023 Amphetamines Screen method >1000 ng/mL Ql (U) Negative Normal NEGATIVE [facility] Comment on above: Result Comment: Nega tive Cutoff: <1000 ng/mL Performed By: #### 2 706619 ####[facility] [address] [place] [address] Barbiturates Screen Ql (U) Negative Normal NEGATIVE [facility] Comment on above: Result Comment: Nega tive Cutoff: <200 ng/mL Performed By: #### 2 160224 ####[facility] [address] [place] [address] Benzodiazepines Ql (U) Negative Normal NEGATIVE [facility] Comment on above: Result Comment: Nega tive Cutoff: <200 ng/mL Performed By: #### 2 653494 ####[facility] [address] [place] [address] Cannabinoids Screen Ql (U) Negative Normal NEGATIVE [facility] Comment on above: Result Comment: Nega tive Cutoff: <50 ng/mL Performed By: #### 2 474042 ####[facility] [address] [place] [address] Cocaine Ql (U) Negative Normal NEGATIVE [facility] Comment on above: Result Comment: Nega tive Cutoff: <300 ng/mL Performed By: #### 2 291996 ####[facility] [address] [place] [address] Opiates Screen Ql (U) Negative Normal NEGATIVE [facility] Comment on above: Result Comment: Nega tive Cutoff: <300 ng/mL Performed By: #### 2 304188 ####[facility] [address] [place] [address] Phencyclidine Screen method >25 ng/mL Ql (U) Negative Normal NEGATIVE [facility] Comment on above: Result Comment: Nega tive Cutoff: <25 ng/mL These drug screen results are to be used for medical (i.e., treatment) purposes only. Unconfirmed drug screening results must not be used for non-medical purposes (e.g., employment testing, legal testing). Performed By: #### 2 [id number] ####[facility] [address] [place] [address] U Fentanyl Positive Abnormal NEGATIVE [facility] Comment on above: Result Comment: Crit [...] testing, legal testing). Performed By: #### 2 584294 ####[facility] [address] [place] [address] UA with Cult Rflxon 06-30-19 24 Bilirubin Ql (U) Negative Normal Negative [facility] Comment on above: Performed By: #### 4 [id number] #### [facility] [address] [place] [address] Clarity (U) Clear Normal Clear [facility] Comment on above: Performed By: #### 4 [id number] #### [facility] [address] [place] [address] Color (U) Colorless Abnormal Yellow [facility] Comment on above: Result Comment: Micr oscopic readings are only performed on those samples that meet specific criteria set forth by [facility]. Performed By: #### 4 [id number] #### [facility] [address] [place] [address] Glucose Ql (U) Negative Normal Negative [facility] Comment on above: Performed By: #### 4 [id number] #### [facility] [address] [place] [address] Hemoglobin Auto test strip (U) [Mass/Vol] Negative Normal Negative [facility] Comment on above: Performed By: #### 4 [id number] #### [facility] [address] [place] [address] Ketones Auto test strip Ql (U) Negative Normal Negative [facility] Comment on above: Performed By: #### 4 [id number] #### [facility] [address] [place] [address] Leukocyte esterase Auto test strip Ql (U) Negative Normal Negative [facility] Comment on above: Performed By: #### 4 [id number] #### [facility] [address] [place] [address] Nitrite Auto test strip Ql (U) Negative Normal Negative [facility] Comment on above: Performed By: #### 4 [id number] #### [facility] [address] [place] [address] pH (U) 6.0 [pH] Invalid Interpretation Code 5.0-9.0 [facility] Comment on above: Performed By: #### 4 [id number] #### [facility] [address] [place] [address] Protein Ql (U) Negative Normal Negative [facility] Comment on above: Performed By: #### 4 [id number] #### [facility] [address] [place] [address] Specific gravity (U) [Rel density] 1.004 Invalid Interpretation Code 1.005-1.030 [facility] Comment on above: Performed By: #### 4 [id number] #### [facility] [address] [place] [address] Urobilinogen (U) [Mass/Vol] Negative Normal Negative [facility] Comment on above: Performed By: #### 4 [id number] #### [facility] [address] [place] [address] Type of Urine collection method Clean Catch Normal [facility] Comment on above: Performed By: #### 4 [id number] #### [facility] [address] [place] [address] URINALYSISOrdered By: SYSTEM SYSTEM on 06-30-2023 Bilirubin Ql (U) Negative Normal Negativemg/ d L FT UA Auto SS Clarity (U) Clear (06/30/23 2:47 PM) Normal Clear FT UA Auto SS Color (U) Colorless 3 *ABN* (06/30/23 2:47 PM) Invalid Interpretation Code Yellow [facility] UA Auto SS Comment on above: Interpretive Data: M icroscopic readings are only performed on those samples that meet specific criteria set forth by [facility]. Glucose Ql (U) Negative Normal [...] Desc Clean Catch (06/30/23 2:47 PM) Normal [facility] UA Auto SS eGFRon 06-30-2023 eGFR 123 mL/min/1.73 m2 Normal >=59 [facility] Comment on above: Order Comment: Order added by Discern Expert. Performed By: #### 1 [id number] #### [facility] [address] [facility] [place] [address] C Urineon 06-20-2023 Bacteria identified Cx Nom (U) Normal [facility] Comment on above: Performed By: #### 2 179531 ####[facility] [address] [place] [address] Chlam/GC/Trich,NAAon 024 C. trachomatis rRNA MOISES+probe Ql (Unsp spec) Negative Invalid Interpretation Code Negative [facility] Comment on above: Performed By: #### 1 [id number], [id number] ####[facility] [address] [place] [address] N. gonorrhoeae rRNA OMISES+probe Ql (Unsp spec) Negative Invalid Interpretation Code Negative [facility] Comment on above: Performed By: #### 1 [id number], [id number] ####[address] [address] T. vaginalis rRNA MOISES+probe Ql (Unsp spec) Positive Abnormal Negative [facility] Comment on above: Result Comment: Perf ormed at: =[facility] [place] [id number] MD Pete Norman Performed By: #### 1 [id number], [id number] ####[facility] [address] [place] [address] Vaginitis/Vaginosis, DNA Pro beon 06-20-2023 Melvni sp rRNA Probe Ql (Vag fld) Negative Invalid Interpretation Code Negative [facility] Comment on above: Performed By: #### 1 [id number], [id number] ####[facility] [address] [place] [address] G. vaginalis rRNA Probe Ql (Genital specimen) Positive Abnormal Negative [facility] Comment on above: Performed By: #### 1 [id number], [id number] ####[facility] [address] [place] [address] T. vaginalis rRNA Probe Ql (Genital specimen) Positive Abnormal Negative [facility] Comment on above: Result Comment: Perf ormed at: [facility] [address] [place], [place] [id number] PhD Sriram Arceo Performed By: #### 1 [id number], [id number] ####[facility] [address] [place] [address] Ambulatory Visit Summaryon 0 06-17-2023 Ambulatory Visit Summary Normal [facility] Family Medicine Office/Clini c Noteon 06-17-2023 Family Medicine Office/Clinic Note Normal [facility] Comment on above: Result Comment: Elec tronically Signed By: Rainer HARO, Mike Rushing\.br\Date and Time Signed: 06/17/23 16:06 EDT Patient Educationon 06-17-19 Patient Education Normal [facility] C Urineon 06-05-2023 Bacteria identified Cx Nom (U) Normal [facility] Comment on above: Performed By: #### 4 [id number], [id number] ####[facility] [address] [place] [address] Discharge Instructionson Discharge Instructions [id number] F Normal [facility] ED Clinical Summaryon 2023 ED Clinical Summary Normal [facility] ED Note-Physicianon 06-04-19 ED Note-Physician Normal [facility] Comment on above: Result Comment: Elec tronically Signed By: Elliott Hicks PA-C\.br\Date and Time Signed: 06/03/23 23:01 EDT\.br\Electronically Co-Signed By: Kerry Linton DO\.br\Date and Time Co-Signed: 06/03/23 23:19 EDT ED Patient Education Noteon 06-04-2023 ED Patient Education Note Normal [facility] ED Patient Summaryon 024 ED Patient Summary Normal [facility] B hCG Qualon 06-03-2023 Beta HCG ( test) Ql Negative Normal [facility] Comment on above: Order Comment: Phleb Lorie attempted to draw and was unsuccessful, phleb Diamante is on her way to draw. [id number] 06/03/2023 21:06:55 EDT Performed By: #### 2 [id number], 1782733, 5794082, 1201418, 9008232, [id number] ####[facility] [address] [place] [address] BMPon 06-03-2023 Anion gap [Moles/Vol] 9 mmol/L Normal 6-16 [facility] Comment on above: Performed By: #### 2 5155122, 1148694, 2448062, 7486550, 0378367, [id number] ####[facility] [address] [place] [address] Calcium [Mass/Vol] 8.9 mg/dL Normal 8.9-11.1 [facility] Comment on above: Performed By: #### 2 7872214, 5464597, 1220453, 5721507, 6635607, 08420704 ####[facility] [address] [place] [address] Chloride [Moles/Vol] 108 mmol/L Normal 101-111 [facility] Comment on above: Performed By: #### 2 7530643, 1270223, 3328054, 3176279, 3681762, [id number] ####[facility] [address] [place] [address] CO2 [Moles/Vol] 28 mmol/L Normal 21-31 [facility] Comment on above: Performed By: #### 2 5454685, 1532510, 9060959, 1974675, 2762773, 36882538 ####[facility] [address] [place] [place] [address] Creatinine [Mass/Vol] 0.6 mg/dL Normal 0.5-1.3 [facility] Comment on above: Performed By: #### 2 4626948, 2083612, 4662644, 7211024, 1297179, 26596141 ####[facility] [address] [place] [address] Glucose [Mass/Vol] 89 mg/dL Normal 55-199 [facility] Comment on above: Performed By: #### 2 4816018, 6735703, 8475330, 5615657, 8047832, 21982900 ####[facility] [address] [place] [address] Potassium [Moles/Vol] 4.0 mmol/L Normal 3.5-5.3 [facility] Comment on above: Performed By: #### 2 4779956, 8255349, 4126874, 7493568, 2932172, 69496865 ####[facility] [address] [place] [address] Sodium [Moles/Vol] 141 mmol/L Normal 135-145 [facility] Comment on above: Performed By: #### 2 9022512, 2320627, 5830072, 9949223, 3129784, 72594960 ####[facility] [address] [place] [address] Urea nitrogen [Mass/Vol] mg/dL Low 5-21 [facility] Comment on above: Performed By: #### 2 9295737, 2957743, 7610078, 4265161, 6606808, [id number] ####[facility] [address] [place] [address] Urea nitrogen/Creatinine [Mass ratio] 7 No Units Low 10-20 [facility] Comment on above: Performed By: #### 2 0563931, 2365788, 9877352, 9433010, 5250752, 61359270 ####[facility] [address] [place] [address] CBC w/ Auto Diffon 4 Basophils/100 WBC (Bld) 0.9 % Normal 0.0-2.0 [facility] Comment on above: Performed By: #### 2 6005273, 8254420, 9350634, 2355919, 8942061, 40834046 ####[facility] [address] [place] [address] Basophils/Leukocytes Auto (Bld) [Pure # fraction] 0.0 E9/L Normal 0.0-0.2 [facility] Comment on above: Performed By: #### 2 9907972, 1119545, 1042628, 5633929, 1241845, 02091860 ####[address] [address] Eosinophils (Bld) [#/Vol] 0.0 E9/L Normal 0.0-0.5 [facility] Comment on above: Performed By: #### 2 8119250, 4330104, 3045036, 3409997, 0654324, 67605096 ####[address] [address] Eosinophils/100 WBC (Bld) 0.7 % Normal 0.0-8.0 [facility] Comment on above: Performed By: #### 2 4443210, 8198473, 0734118, 2082522, 0091036, 25957559 ####[address] [address] Erythrocyte distribution width (RBC) [Ratio] 13.8 % Normal 10.9-14.2 [facility] Comment on above: Performed By: #### 2 8734584, 1063856, 6798005, 9297980, 3538522, 59415150 ####[address] [address] Hematocrit (Bld) [Volume fraction] 39.2 % Normal 34.0-46.0 [facility] Comment on above: Performed By: #### 2 0844080, 9516229, 3187497, 4353982, 0167852, 50505302 ####[address] [address] Hemoglobin (Bld) [Mass/Vol] 13.0 g/dL Normal 12.0-16.0 [facility] Comment on above: Performed By: #### 2 2783644, 6876837, 8690626, 6131631, 3649142, 81894880 ####[address] [address] Lymphocytes (Bld) [#/Vol] 1.7 E9/L Normal 1.0-4.0 [facility] Comment on above: Performed By: #### 2 0916142, 4749149, 3857044, 0391321, 7817818, 77817470 ####[address] [address] Lymphocytes/100 WBC (Bld) 37.8 % Normal 14.0-50.0 [facility] Comment on above: Performed By: #### 2 1699094, 6078454, 8406938, 8765079, 7538818, 30710634 ####[address] [address] MCH (RBC) [Entitic mass] 33.5 pg Normal 27.0-34.0 [facility] Comment on above: Performed By: #### 2 7054863, 8488890, 7854291, 7299167, 9926698, 12225532 ####[address] [address] MCHC (RBC) [Mass/Vol] 33.2 g/dL Normal 31.4-36.0 [facility] Comment on above: Performed By: #### 2 9411412, 8841987, 0943723, 5252894, 7317486, 28511370 ####[address] [address] MCV (RBC) [Entitic vol] 100.9 fL High 80.0-100.0 [facility] Comment on above: Performed By: #### 2 9331443, 0120530, 3740339, 5508038, 2077691, 25859586 ####[address] [address] Monocytes (Bld) [#/Vol] 0.3 E9/L Normal 0.2-1.0 [facility] Comment on above: Performed By: #### 2 6659000, 4476970, 7103350, 1549491, 1749210, 74504155 ####[address] [address] Neutrophils (Bld) [#/Vol] 2.5 E9/L Normal 2.0-7.5 [facility] Comment on above: Performed By: #### 2 9500774, 1971806, 9327615, 2910735, 0729617, 36406874 ####[address] [address] Neutrophils/100 WBC (Bld) 53.9 % Normal 36.0-75.0 [facility] Comment on above: Performed By: #### 2 9114265, 9558237, 6316152, 4542849, 5859638, 48705241 ####[address] [address] Platelet 149.0 E9/L Low 150.0-500.0 [facility] Comment on above: Performed By: #### 2 5041003, 0741080, 2367499, 5756650, 0503426, 44376083 ####[address] [address] Platelet mean volume (Bld) [Entitic vol] 8.3 fL Normal 6.4-10.8 [facility] Comment on above: Performed By: #### 2 7508559, 6729487, 4338385, 0829896, 7220741, 49268066 ####[address] [address] RBC (Bld) [#/Vol] 3.9 E12/L Low 4.3-5.9 [facility] Comment on above: Performed By: #### 2 4737403, 6029045, 5472870, 9348543, 5240363, 52782622 ####[address] [address] WBC corrected for nucl RBC Auto (Bld) [#/Vol] 4.6 E9/L Normal 4.0-11.0 [facility] Comment on above: Performed By: #### 2 8555478, 2604767, 2210935, 0473787, 9752970, 50982262 ####[facility] [address] [place] [address] CHEMISTRYOrdered By: SYSTEM SYSTEM on 06-03-2023 Albumin [...] for Treatmenton 05-13 Consent for Treatment [id number] F Normal [facility] HEMATOLOGYOrdered By: Arlene Contreras on 06-03-2023 [...] 06-03-2023 Albumin [Mass/Vol] 4.0 g/dL Normal 3.3-5.0 [facility] Comment on above: Performed By: #### 2 7346411, 1338469, 1425995, 1920974, 1786319, 91694016 ####[facility] [address] [place] [address] Albumin/Globulin (S) [Mass conc ratio] 1.3 Normal 1.1-2.2 [facility] Comment on above: Performed By: #### 2 3435318, 0656264, 8726702, 2989742, 5400387, 36349194 ####[facility] [address] [place] [address] ALP [Catalytic activity/Vol] 133 Int._Unit/L High 21-98 [facility] Comment on above: Performed By: #### 2 6841442, 4987703, 8394384, 9459146, 6205586, 00952709 ####[facility] [address] [place] [address] ALT No additional P-5'-P [Catalytic activity/Vol] 131 Int._Unit/L High 6-46 [facility] Comment on above: Performed By: #### 2 3096777, 3582773, 3492739, 7207855, 7134733, 68533935 ####[place] [address] AST [Catalytic activity/Vol] 192 Int._Unit/L [facility] 5-43 [facility] Comment on above: Performed By: #### 2 6402307, 5007080, 9431003, 7175970, 0247540, 63031215 ####[address] [address] Bilirubin [Mass/Vol] 0.4 mg/dL Normal 0.0-1.1 [facility] Comment on above: Performed By: #### 2 9487370, 8444369, 5218660, 5016724, 6091514, 31919524 ####[place] [address] Bilirubin.direct [Mass/Vol] 0.1 mg/dL Normal 0.0-0.4 [facility] Comment on above: Performed By: #### 2 5506457, 5535846, 7168618, 7980624, 4857563, 79289291 ####[place] [address] Bilirubin.indirect [Mass or moles/Vol] 0.3 mg/dL Normal 0.1-0.9 [facility] Comment on above: Performed By: #### 2 6576514, 7279996, 4957158, 3387305, 5425865, 19697151 ####[address] [address] Globulin (S) [Mass/Vol] 3.1 g/dL Normal 1.4-4.0 [facility] Comment on above: Performed By: #### 2 5112776, 6250271, 3830476, 2670175, 8659980, 88881239 ####[facility] [address] [place] [address] Protein [Mass/Vol] 7.1 g/dL Normal 6.0-7.8 [facility] Comment on above: Performed By: #### 2 4680976, 5071449, 3472944, 9481529, 1461413, 08352666 ####[facility] [address] [place] [address] Lipase Levelon 06-03-2023 Lipase [Catalytic activity/Vol] 25 U/L Normal 13-58 [facility] Comment on above: Performed By: #### 2 0422140, 8082497, 8609925, 3160988, 8857959, 29862079 ####[address] [address] [place] [address] SEROLOGYOrdered By: Domitila gaffney on 06-03-2023 Beta HCG ( test) Ql Negative (06/03/23 9:12 PM) Normal [facility] [place] Man Sero UA with Cult Rflxon 06-03-19 24 Bacteria Auto Ql (U) 1+ [id number] Abnormal Trace [facility] Comment on above: Performed By: #### 4 [id number], 0498540 ####[facility] [address] [place] [address] Bilirubin Ql (U) Negative Normal Negative [facility] Comment on above: Performed By: #### 4 [id number], 6826064 ####[facility] [address] [place] [address] Clarity (U) Clear Normal Clear [facility] Comment on above: Performed By: #### 4 183140669, 7999097 ####[facility] [address] [place] [address] Color (U) Light-Yellow Normal Yellow [facility] Comment on above: Result Comment: Micr oscopic readings are only performed on those samples that meet specific criteria set forth by [facility] Laboratory. Performed By: #### 4 [id number], 7912109 ####[facility] [address] [place] [address] Epithelial cells.squamous Auto (Urine sed) [#/Area] 0-2 Normal 0-2 [facility] Comment on above: Performed By: #### 4 409707302, 6900500 ####[facility] [address] [place] [address] Glucose Ql (U) Negative Normal Negative [facility] Comment on above: Performed By: #### 4 701307558, 9493795 ####[address] [address] Hemoglobin Auto test strip (U) [Mass/Vol] Trace Abnormal Negative [facility] Comment on above: Performed By: #### 4 601353013, 6228807 ####[address] [address] Ketones Auto test strip Ql (U) Negative Normal Negative [facility] Comment on above: Performed By: #### 4 967862272, 4376043 ####[address] [address] Leukocyte esterase Auto test strip Ql (U) 250 Oracio/uL Abnormal Negative [facility] Comment on above: Performed By: #### 4 123707661, 2985636 ####[address] [address] Mucus Auto Ql (U) Trace Normal Negative [facility] Comment on above: Performed By: #### 4 666800370, 1746330 ####[address] [address] Nitrite Auto test strip Ql (U) Negative Normal Negative [facility] Comment on above: Performed By: #### 4 933570186, 6974684 ####[facility] [address] [place] [address] pH (U) 6.0 [pH] Invalid Interpretation Code 5.0-9.0 [facility] Comment on above: Performed By: #### 4 787891886, 3003970 ####[facility] [address] [place] [address] Protein Ql (U) Negative Normal Negative [facility] Comment on above: Performed By: #### 4 931136708, 3608386 ####[address] [address] RBC Ql (U) 0-3 Normal 0-3 [facility] Comment on above: Performed By: #### 4 483258242, 8187702 ####[address] [address] Specific gravity (U) [Rel density] 1.005 Invalid Interpretation Code 1.005-1.030 [facility] Comment on above: Performed By: #### 4 982002876, 6315659 ####[place] [address] Urobilinogen (U) [Mass/Vol] Negative Normal Negative [facility] Comment on above: Performed By: #### 4 143483667, 1781012 ####[place] [address] WBC Auto (Urine sed) [#/Area] 16-25 Abnormal 0-5 [facility] Comment on above: Performed By: #### 4 [id number], 0521817 ####[place] [address] Type of Urine collection method Clean Catch Normal [facility] Comment on above: Performed By: #### 4 823263475, 3498703 ####[address] [address] URINALYSISOrdered By: SYSTEM SYSTEM on 06-03-2023 Bacteria Auto Ql (U) 1+ graded/HPF Invalid Interpretation Code Tracegraded/ HPF [facility] [place] UA Auto SS Bilirubin Ql (U) Negative Normal Negativemg/ d L [facility] [place] UA Auto SS Clarity (U) Clear (06/03/23 9:07 PM) Normal Clear [facility] [place] UA Auto SS Color (U) Light-Yellow 1 (06/03/23 9:07 PM) Normal Yellow [facility] UA Auto SS Comment on above: Interpretive Data: M icroscopic readings are only performed on those samples that meet specific criteria set forth by [facility]. Epithelial cells.squamous Auto (Urine sed) [...] 06-03-2023 eGFR 123 mL/min/1.73 m2 Normal >=59 [facility] Comment on above: Order Comment: Order added by Discern Expert. Performed By: #### 2 0046698, 9762017, 0365878, 4093309, 7811412, 55679898 ####[facility] [address] [place] [address] ED Note-Physicianon 04-26-19 ED Note-Physician [id number]#1.00TIF F Normal [facility] Alanine aminotransferase [En zymatic activity/volume] in Serum or PlasmaOrdered By: Diane Paez on 04-25-2023 ALT [Catalytic activity/Vol] 221 U/L 7-52 [facility] Albumin [Mass/volume] in Ser um or Plasma by Bromocresol green (BCG) dye binding methoOrdered By: Diane Paez on 04-25-2023 Albumin BCG dye [Mass/Vol] 4.5 g/dL 3.5-5.7 [facility] Alkaline phosphatase [Enzyma tic activity/volume] in Serum or PlasmaOrdered By: Diane Paez on 04-25-2023 ALP [Catalytic activity/Vol] 94 U/L 34-104 [facility] Aspartate aminotransferase [ Enzymatic activity/volume] in Serum or PlasmaOrdered By: Diane Paez on 04-25-2023 AST [Catalytic activity/Vol] 281 U/L 13-39 [facility] Automated erythrocytes count in urine sediment (number/area)Ordered By: Diane Paez on 04-25-2023 RBC Auto (Urine sed) [#/Area] 0-1 [HPF] 0-4 [facility] Automated leukocytes count i n urine sediment (number/area)Ordered By: Diane Paez on 04-25-2023 WBC Auto (Urine sed) [#/Area] 1-2 [HPF] 0-4 [facility] Basophils Auto (Bld) [#/Vol] Ordered By: Diane Paez on 04-25-2023 Basophils (Bld) [#/Vol] 0.0 10*3/uL 0.0-0.2 [facility] Basophils/100 WBC Auto (Bld) Ordered By: Diane Paez on 04-25-2023 Basophils/100 WBC (Bld) 1.0 % . [facility] Bilirubin Test strip Ql (U)O rdered By: Diane Paez on 04-25-2023 Bilirubin Ql (U) Negative Negative [facility] Bilirubin.direct [Mass/volum e] in Serum or PlasmaOrdered By: Diane Paez on 04-25-2023 Bilirubin.direct [Mass/Vol] 0.10 mg/dL 0.03-0.18 [facility] Bilirubin.total [Mass/volume ] in Serum or PlasmaOrdered By: Diane Paez on 04-25-2023 Bilirubin [Mass/Vol] 0.5 mg/dL 0.3-1.0 [facility] Calcium [Mass/volume] in Ser um or PlasmaOrdered By: Diane Paez on 04-25-2023 Calcium [Mass/Vol] 8.9 mg/dL 8.6-10.3 [facility] Carbon dioxide, total [Moles /volume] in Serum or PlasmaOrdered By: Diane Paez on 04-25-2023 CO2 [Moles/Vol] 27.0 mmol/L 21.0-31.0 [facility] Chloride [Moles/volume] in S marbella or PlasmaOrdered By: Diane Paez on 04-25-2023 Chloride [Moles/Vol] 100 mmol/L 98-107 [facility] Choriogonadotropin.beta subu nit [Units/volume] in Serum or PlasmaOrdered By: Diane Paez on 04-25-2023 HCG.beta subunit Qn Negative [facility] Color Auto (U)Ordered By: Venkatesh Paez on 04-25-2023 Color (U) Yellow Yellow [facility] Creatinine [Mass/volume] in Serum or PlasmaOrdered By: Diane Paez on 04-25-2023 Creatinine [Mass/Vol] 0.65 mg/dL 0.60-1.20 [facility] Eosinophils Auto (Bld) [#/Vo l]Ordered By: Diane Paez on 04-25-2023 Eosinophils (Bld) [#/Vol] 0.1 10*3/uL 0.0-0.45 [facility] Eosinophils/100 WBC Auto (Bl d)Ordered By: Diane Paez on 03-14-2024 Eosinophils/100 WBC (Bld) 1.1 % . [facility] Erythrocyte distribution wid th Auto (RBC) [Ratio]Ordered By: Diane Paez on 04-25-2023 Erythrocyte distribution width (RBC) [Ratio] 13.3 % 11.9-15.3 [facility] Globulin Calc (S) [Mass/Vol] Ordered By: Diane Paez on 04-25-2023 Globulin (S) [Mass/Vol] 3.7 g/dL [facility] Glucose [Mass/volume] in Ser um or PlasmaOrdered By: Diane Paez on 04-25-2023 Glucose [Mass/Vol] 85 mg/dL 70-100 [facility] Comment on above: ADA recommended refe rence rangeRandom Glucose Reference Range is dependent on time and content of last meal. Glucose of more than 200 mg/dL in a nonstressed, ambulatory subject supports the diagnosis of Diabetes Mellitus. Hematocrit Auto (Bld) [Volum e fraction]Ordered By: Diane Paez on 04-25-2023 Hematocrit (Bld) [Volume fraction] 40.8 % 34.0-46.4 [facility] Hemoglobin [Mass/volume] in BloodOrdered By: Diane Paez on 04-25-2023 Hemoglobin (Bld) [Mass/Vol] 14.3 g/dL 11.8-15.4 [facility] Ketones Auto test strip (U) [Mass/Vol]Ordered By: Diane Paez on 04-25-2023 Ketones (U) [Mass/Vol] Negative Negative [facility] - UrinalysisOrder ed By: Diane Paez on 04-25-2023 Hyaline casts LM Ql (Urine sed) None seen [LPF] 0-8 [facility] Leukocytes [#/volume] correc jose for nucleated erythrocytes in Blood by Automated counOrdered By: Diane Paez on 04-25-2023 WBC corrected for nucl RBC Auto (Bld) [#/Vol] 4.7 10*3/uL 3.8-11.6 [facility] Lipase [Enzymatic activity/v olume] in Serum or PlasmaOrdered By: Diane Paez on 04-25-2023 Lipase [Catalytic activity/Vol] 74.0 U/L 11.0-82.0 [facility] Lymphocytes Auto (Bld) [#/Vo l]Ordered By: Diane Paez on 04-25-2023 Lymphocytes (Bld) [#/Vol] 1.9 10*3/uL 1.00-4.8 [facility] Lymphocytes/100 WBC Auto (Bl d)Ordered By: Diane Paez on 04-25-2023 Lymphocytes/100 WBC (Bld) 40.9 % . [facility] MCH Auto (RBC) [Entitic mass ]Ordered By: Diane Paez on 04-25-2023 MCH (RBC) [Entitic mass] 33.9 pg 24.7-34.3 [facility] MCHC Auto (RBC) [Mass/Vol]Or dered By: Diane Paez on 04-25-2023 MCHC (RBC) [Mass/Vol] 35.0 g/dL 32.0-35.0 [facility] MCV Auto (RBC) [Entitic vol] Ordered By: Diane Paez on 04-25-2023 MCV (RBC) [Entitic vol] 96.8 fL 80-100 [facility] Monocyte distribution width [Entitic volume] in Blood by AutomatedOrdered By: Diane Paez on 04-25-2023 Monocyte distribution width Auto (Bld) [Entitic vol] 17.84 % 0.00-20.00 [facility] Monocytes Auto (Bld) [#/Vol] Ordered By: Diane Paez on 04-25-2023 Monocytes (Bld) [#/Vol] 0.2 10*3/uL 0.0-0.8 [facility] Monocytes/100 WBC Auto (Bld) Ordered By: Diane Paez on 04-25-2023 Monocytes/100 WBC (Bld) 4.5 % . [facility] Neutrophils Auto (Bld) [#/Vo l]Ordered By: Diane Paez on 04-25-2023 Neutrophils (Bld) [#/Vol] 2.5 10*3/uL 1.8-7.7 [facility] Neutrophils/100 WBC Auto (Bl d)Ordered By: Diane Paez on 04-25-2023 Neutrophils/100 WBC (Bld) 52.5 % . [facility] Nitrite Test strip Ql (U)Ord ered By: Diane Paez on 04-25-2023 Nitrite Ql (U) Negative Negative [facility] No Panel InformationOrdered By: Diane Paez on 04-25-2023 Estimated GFR (CKD-EPI) > 60.0 mL/Min [facility] Creatinine Clearance (Chem 116.68 [facility] Nucleated erythrocytes [Pres ence] in Blood by Automated countOrdered By: Diane Paez on 04-25-2023 Nucleated RBC Auto Ql (Bld) 0.2 /100{WBC} 0-0.5 [facility] Platelet mean volume Auto (B ld) [Entitic vol]Ordered By: Diane Paez on 04-25-2023 Platelet mean volume (Bld) [Entitic vol] 8.7 fL 6.3-10.7 [facility] Platelets Auto (Bld) [#/Vol] Ordered By: Diane Paez on 04-25-2023 Platelets (Bld) [#/Vol] 146 10*3/uL 150-450 [facility] Potassium [Moles/volume] in Serum or PlasmaOrdered By: Diane Paez on 04-25-2023 Potassium [Moles/Vol] 4.0 mmol/L 3.5-5.1 [facility] Protein Auto test strip (U) [Mass/Vol]Ordered By: Diane Paez on 04-25-2023 Protein (U) [Mass/Vol] Trace mg/dL Negative [facility] Protein [Mass/volume] in Ser um or PlasmaOrdered By: Diane Paez on 04-25-2023 Protein [Mass/Vol] 8.2 g/dL 6.4-8.9 [facility] RBC Auto (Bld) [#/Vol]Ordere d By: Diane Paez on 04-25-2023 RBC (Bld) [#/Vol] 4.22 10*6/uL 3.60-5.00 [facility] Serum or plasma albumin/glob ulin mass ratioOrdered By: Diane Paez on 04-25-2023 Albumin/Globulin [Mass ratio] 1.2 {ratio} [facility] Serum or plasma anion gap de terminationOrdered By: Diane Paez on 04-25-2023 Anion gap [Moles/Vol] 16.0 mmol/L 6.0-15.0 [facility] Serum or plasma non-glucuron idated bilirubin measurement (mass/volume)Ordered By: Diane Paez on 04-25-2023 Bilirubin.indirect [Mass/Vol] 0.4 mg/dL [facility] Sodium [Moles/volume] in Ser um or PlasmaOrdered By: Diane Paez on 04-25-2023 Sodium [Moles/Vol] 139 mmol/L 136-145 [facility] Specific gravity Auto test s trip (U) [Rel density]Ordered By: Diane Paez on 04-25-2023 Specific gravity (U) [Rel density] 1.006 1.001-1.030 [facility] Squamous epithelial cells de tection in urine sediment by light microscopyOrdered By: Diane Paez on 04-25-2023 Epithelial cells.squamous LM Ql (Urine sed) 0-1 [HPF] 0-2 [facility] Urea nitrogen [Mass/volume] in Serum or PlasmaOrdered By: Diane Paez on 04-25-2023 Urea nitrogen [Mass/Vol] 5 mg/dL 7-25 [facility] Urine bacteria detection by automated methodOrdered By: Diane Paez on 04-25-2023 Bacteria Auto Ql (U) None seen None Seen [facility] Urine clarity by refractomet ry automatedOrdered By: Diane Paez on 04-25-2023 Clarity Refractometry automated (U) Clear Clear [facility] Urine glucose measurement by automated test strip (mass/volume)Ordered By: Diane Paez on 04-25-2023 Glucose Auto test strip (U) [Mass/Vol] Normal mg/dL Normal [facility] Urine hemoglobin detection b y automated test stripOrdered By: Diane Paez on 04-25-2023 Hemoglobin Auto test strip Ql (U) Negative Negative [facility] Urine leukocyte esterase det ection by automated test stripOrdered By: Diane Paez on 04-25-2023 Leukocyte esterase Auto test strip Ql (U) Negative Negative [facility] Urobilinogen Auto test strip (U) [Mass/Vol]Ordered By: Diane Paez on 04-25-2023 Urobilinogen (U) [Mass/Vol] Normal mg/dL Normal [facility] WBC Auto (Bld) [#/Vol]Ordere d By: Diane Paez on 04-25-2023 WBC (Bld) [#/Vol] 4.7 10*3/uL 3.8-11.6 [facility] pH Auto test strip (U)Ordere d By: Diane Paez on 04-25-2023 pH (U) 6.5 [pH] 5.0-9.0 [facility] BMPon 04-20-2023 Anion gap [Moles/Vol] 14 mmol/L Normal 6-16 [facility] Comment on above: Performed By: #### 2 223480, 5730559, 73837048, 1317731, 4173231, 7080127 ####[facility] [address] [place] [address] Calcium [Mass/Vol] 8.7 mg/dL Low 8.9-11.1 [facility] Comment on above: Performed By: #### 2 085874, 6363446, 40375957, 0836855, 4058282, 1735805 ####[facility] [address] [place] [address] Chloride [Moles/Vol] 107 mmol/L Normal 101-111 [facility] Comment on above: Performed By: #### 2 630635, 4041821, 49769678, 6636540, 7710006, 4278749 ####[facility] [address] [place] [address] CO2 [Moles/Vol] 26 mmol/L Normal 21-31 [facility] Comment on above: Performed By: #### 2 054995, 9489471, 08484814, 5811338, 5507716, 7662800 ####[facility] [address] [place] [address] Creatinine [Mass/Vol] 0.5 mg/dL Normal 0.5-1.3 [facility] Comment on above: Performed By: #### 2 444797, 9209540, 83600594, 3016851, 9359152, 8511450 ####[facility] [address] [place] [address] Glucose [Mass/Vol] 83 mg/dL Normal 55-199 [facility] Comment on above: Performed By: #### 2 607489, 3581684, 31095542, 4056447, 1978096, 5109283 ####[facility] [address] [place] [address] Potassium [Moles/Vol] 3.8 mmol/L Normal 3.5-5.3 [facility] Comment on above: Performed By: #### 2 166668, 3181255, 23260445, 5588348, 6429974, 4994484 ####[facility] [address] [place] [address] Sodium [Moles/Vol] 143 mmol/L Normal 135-145 [facility] Comment on above: Performed By: #### 2 979745, 6380432, 74626699, 6153621, 4744357, 9697115 ####[facility] [address] [place] [address] Urea nitrogen [Mass/Vol] 8 mg/dL Normal 5-21 [facility] Comment on above: Performed By: #### 2 708892, 9751717, 52686409, 3108780, 5201753, 2592073 ####[facility] [address] [place] [address] Urea nitrogen/Creatinine [Mass ratio] 16 No Units Normal 10-20 [facility] Comment on above: Performed By: #### 2 114679, 4638386, 01801141, 9995333, 9684343, 5215884 ####[facility] [address] [place] [address] CBC w/ Auto Diffon 4 Basophils/100 WBC (Bld) 1.1 % Normal 0.0-2.0 [facility] Comment on above: Performed By: #### 2 815839, 4372354, 88371535, 8683272, 8069323, 2777775 ####[address] [address] Basophils/Leukocytes Auto (Bld) [Pure # fraction] 0.1 E9/L Normal 0.0-0.2 [facility] Comment on above: Performed By: #### 2 132768, 9210132, 48854373, 3821918, 6311563, 7610438 ####[address] [address] Eosinophils (Bld) [#/Vol] 0.1 E9/L Normal 0.0-0.5 [facility] Comment on above: Performed By: #### 2 766831, 0565766, 26794698, 6711373, 6419073, 1328868 ####[address] [address] Eosinophils/100 WBC (Bld) 1.0 % Normal 0.0-8.0 [facility] Comment on above: Performed By: #### 2 690448, 6081671, 80747276, 0892507, 0317907, 9599119 ####[address] [address] Erythrocyte distribution width (RBC) [Ratio] 13.1 % Normal 10.9-14.2 [facility] Comment on above: Performed By: #### 2 929460, 1042929, 80209494, 3956325, 0826230, 0192960 ####[address] [address] Hematocrit (Bld) [Volume fraction] 41.5 % Normal 34.0-46.0 [facility] Comment on above: Performed By: #### 2 025697, 4148394, 11424949, 1628623, 0535111, 3647125 ####[address] [address] Hemoglobin (Bld) [Mass/Vol] 14.3 g/dL Normal 12.0-16.0 [facility] Comment on above: Performed By: #### 2 188814, 8502589, 98623270, 7444896, 9497482, 9414601 ####[facility] [address] [place] [address] Lymphocytes (Bld) [#/Vol] 2.4 E9/L Normal 1.0-4.0 [facility] Comment on above: Performed By: #### 2 493337, 1633211, 47737836, 0613691, 3793989, 9825966 ####[address] [place] [address] Lymphocytes/100 WBC (Bld) 38.1 % Normal 14.0-50.0 [facility] Comment on above: Performed By: #### 2 995079, 0645445, 37313927, 1212561, 6976802, 0856827 ####[address] [address] MCH (RBC) [Entitic mass] 33.5 pg Normal 27.0-34.0 [facility] Comment on above: Performed By: #### 2 067662, 6323214, 88687838, 0957895, 1666714, 9200103 ####[address] [address] MCHC (RBC) [Mass/Vol] 34.5 g/dL Normal 31.4-36.0 [facility] Comment on above: Performed By: #### 2 780843, 2344907, 56927569, 6785415, 9405073, 5741841 ####[address] [address] MCV (RBC) [Entitic vol] 97.0 fL Normal 80.0-100.0 [facility] Comment on above: Performed By: #### 2 213298, 6720610, 62186739, 9903590, 3303746, 3800898 ####[address] [place] [address] Monocytes (Bld) [#/Vol] 0.3 E9/L Normal 0.2-1.0 [facility] Comment on above: Performed By: #### 2 293360, 0791999, 40088263, 9803046, 1338950, 7166675 ####[address] [address] Neutrophils (Bld) [#/Vol] 3.4 E9/L Normal 2.0-7.5 [facility] Comment on above: Performed By: #### 2 856574, 6676261, 51435466, 1819553, 2005020, 2123995 ####[address] [address] Neutrophils/100 WBC (Bld) 54.6 % Normal 36.0-75.0 [facility] Comment on above: Performed By: #### 2 763873, 5606307, 04881815, 7277837, 0637015, 6755758 ####[address] [address] Platelet 192.0 E9/L Normal 150.0-500.0 [facility] Comment on above: Performed By: #### 2 446131, 1683472, 94447645, 9773082, 8260083, 5840995 ####[address] [address] Platelet mean volume (Bld) [Entitic vol] 7.8 fL Normal 6.4-10.8 [facility] Comment on above: Performed By: #### 2 972423, 4932412, 83354275, 1842714, 6894996, 8067052 ####[address] [address] RBC (Bld) [#/Vol] 4.3 E12/L Normal 4.3-5.9 [facility] Comment on above: Performed By: #### 2 633810, 9792022, 48307976, 4000057, 0870631, 0466459 ####[facility] [address] [place] [address] WBC corrected for nucl RBC Auto (Bld) [#/Vol] 6.2 E9/L Normal 4.0-11.0 [facility] Comment on above: Performed By: #### 2 602091, 7588982, 02076029, 8754218, 2839102, 0348883 ####[facility] [address] [place] [address] Consent for Treatmenton Consent for Treatment [id number] FF Normal [facility] Discharge Instructionson Discharge Instructions [id number]#[id number] FF Normal [facility] ED Clinical Summaryon 2023 ED Clinical Summary Normal [facility] ED Note-Nursingon 04-20-2023 ED Note-Nursing Normal [facility] ED Note-Physicianon 04-20-19 ED Note-Physician Normal [facility] Comment on above: Result Comment: Elec tronically Signed By: Elliott Hicks PA-C\.br\Date and Time Signed: 04/19/23 23:53 EST\.br\Electronically Co-Signed By: Kerry Linton DO\.br\Date and Time Co-Signed: 04/20/23 05:01 EST ED Patient Education Noteon 04-20-2023 ED Patient Education Note Normal [facility] ED Patient Summaryon 024 ED Patient Summary Normal [facility] Ethanolon 04-20-2023 Ethanol Lvl 437 mg/dL Abnormal <=11 [facility] Comment on above: Result Comment: Crit ical Result Verified by Repeat AnalysisCritical Result S_[id number] Called to and read back by: DR. LINTON at: 04/19/2023 23:22:41 by:[id number] Performed By: #### 2 112215 ####[facility] [address] [address] Hep Func Panelon 04-20-2023 Albumin [Mass/Vol] 4.3 g/dL Normal 3.3-5.0 [facility] Comment on above: Performed By: #### 2 886775, 8263974, 63134005, 4049896, 0581669, 2342633 ####[address] [address] Albumin/Globulin (S) [Mass conc ratio] 1.3 Normal 1.1-2.2 [facility] Comment on above: Performed By: #### 2 287153, 2371030, 55633695, 8061377, 5976121, 8307469 ####[address] [address] ALP [Catalytic activity/Vol] 96 Int._Unit/L Normal 21-98 [facility] Comment on above: Performed By: #### 2 976872, 8195118, 38721730, 0762315, 1272467, 7457594 ####[address] [address] ALT No additional P-5'-P [Catalytic activity/Vol] 273 Int._Unit/L High 6-46 [facility] Comment on above: Performed By: #### 2 856587, 2755887, 15431749, 7628527, 6285532, 9514869 ####[address] [address] AST [Catalytic activity/Vol] 356 Int._Unit/L High 5-43 [facility] Comment on above: Performed By: #### 2 883511, 9546254, 91889757, 3806089, 2168846, 9847365 ####[address] [address] Bilirubin [Mass/Vol] 0.3 mg/dL Normal 0.0-1.1 [facility] Comment on above: Performed By: #### 2 584504, 9070212, 50117193, 1855550, 3843022, 6745552 ####[facility] [address] [place] [address] Bilirubin.direct [Mass/Vol] 0.1 mg/dL Normal 0.0-0.4 [facility] Comment on above: Performed By: #### 2 438261, 7902881, 27750193, 4493154, 3263915, 0114509 ####[address] [address] Bilirubin.indirect [Mass or moles/Vol] 0.2 mg/dL Normal 0.1-0.9 [facility] Comment on above: Performed By: #### 2 271129, 9668690, 21172136, 6198742, 0702883, 3870139 ####[address] [address] Globulin (S) [Mass/Vol] 3.3 g/dL Normal 1.4-4.0 [facility] Comment on above: Performed By: #### 2 682991, 5589189, 08507671, 5049468, 1419065, 8338234 ####[address] [address] Protein [Mass/Vol] 7.6 g/dL Normal 6.0-7.8 [facility] Comment on above: Performed By: #### 2 440937, 1341605, 08882802, 6625432, 9297505, 3198736 ####[address] [address] Lipase Levelon 04-20-2023 Lipase [Catalytic activity/Vol] 63 U/L High 13-58 [facility] Comment on above: Performed By: #### 2 582042, 8614268, 24195350, 4423148, 5555992, 6839938 ####[address] [address] Magnesiumon 04-20-2023 Magnesium [Mass/Vol] 2.0 mg/dL Normal 1.3-2.4 [facility] Comment on above: Performed By: #### 2 805127, 6948610, 08290095, 6038682, 8773524, 9724881 ####[facility] [address] [place] [address] Progress Note-Nurseon 2023 Progress Note-Nurse Magui PO hold for n ow. Pt. eyes closed. No N/V . Normal [facility] U BetaHcg Qualon 04-20-2023 HCG.beta subunit (U) [Moles/Vol] Negative Normal [facility] Comment on above: Performed By: #### 2 7709147, 50970925 ####[address] [place] [address] U Drug Screenon 04-20-2023 Amphetamines Screen method >1000 ng/mL Ql (U) Negative Normal NEGATIVE [facility] Comment on above: Performed By: #### 2 909499 ####[address] [address] Barbiturates Screen Ql (U) Negative Normal NEGATIVE [facility] Comment on above: Performed By: #### 2 438377 ####[address] [place] [address] Benzodiazepines Ql (U) Negative Normal NEGATIVE [facility] Comment on above: Performed By: #### 2 455273 ####[address] [address] Cannabinoids Screen Ql (U) Negative Normal NEGATIVE [facility] Comment on above: Performed By: #### 2 531866 ####[facility] [address] [place] [address] Cocaine Ql (U) Negative Normal NEGATIVE [facility] Comment on above: Performed By: #### 2 155178 ####[facility] [address] [place] [address] Opiates Screen Ql (U) Negative Normal NEGATIVE [facility] Comment on above: Performed By: #### 2 115952 ####[facility] [address] [place] [address] Phencyclidine Screen method >25 ng/mL Ql (U) Negative Normal NEGATIVE [facility] Comment on above: Performed By: #### 2 833946 ####[facility] [address] [place] [address] UA With Cult Reflexon 2023 Bilirubin Ql (U) Negative Normal Negative [facility] Comment on above: Performed By: #### 2 1701822, 85849962 ####[address] [address] Clarity (U) CLEAR Normal Clear [facility] Comment on above: Performed By: #### 2 0837654, 53868729 ####[address] Color (U) STRAW Invalid Interpretation Code [facility] Comment on above: Performed By: #### 2 0319212, 62253924 ####[address] Epithelial cells.squamous LM.HPF (Urine sed) [#/Area] 0-2 Normal 0-2 [facility] Comment on above: Performed By: #### 2 2440975, 58826844 ####[address] Glucose Test strip (U) [Mass/Vol] Negative Normal Negative [facility] Comment on above: Performed By: #### 2 2490756, 16250782 ####[facility] [address] [place] [address] Hemoglobin Ql (U) Negative Normal Negative [facility] Comment on above: Performed By: #### 2 6965198, 66031517 ####[address] [address] Ketones (U) [Mass/Vol] Negative Normal Negative [facility] Comment on above: Performed By: #### 2 7832189, 40214047 ####[address] [address] [place].plasma/Lithiu m.RBC (Bld) [Mass ratio] 0-3 Normal 0-3 [facility] Comment on above: Performed By: #### 2 2274880, 74551126 ####[address] Nitrite Ql (U) Negative Normal Negative [facility] Comment on above: Performed By: #### 2 0277225, 42151827 ####[address] pH (U) 7.0 [pH] Invalid Interpretation Code 5.0-9.0 [facility] Comment on above: Performed By: #### 2 2621794, 31584903 ####[place] [address] Protein (U) [Mass/Vol] Negative Normal Negative [facility] Comment on above: Performed By: #### 2 7385767, 79699053 ####[place] [address] Specific gravity (U) [Rel density] <=1.005 Invalid Interpretation Code 1.005-1.030 [facility] Comment on above: Performed By: #### 2 3971994, 02852650 ####[place] [address] Type of Urine collection method Clean Catch Normal [facility] Comment on above: Performed By: #### 2 3774126, 30429439 ####[address] Urobilinogen Qn (U) 0.2 {Surinder'U}/dL Normal 0.0-1.0 [facility] Comment on above: Performed By: #### 2 9776578, 19992940 ####[address] [address] WBC Auto Ql (U) Negative Normal Negative [facility] Comment on above: Performed By: #### 2 3148787, 02995534 ####[address] [place] [address] WBC LM.HPF (Urine sed) [#/Area] 0-5 Normal 0-5 [facility] Comment on above: Performed By: #### 2 5383485, 81969809 ####[facility] [address] [place] [address] eGFRon 04-20-2023 eGFR 128 mL/min/1.73 m2 Normal >=59 [facility] Comment on above: Order Comment: Order added by Discern Expert. Performed By: #### 2 153993, 4901813, 59023872, 3444861, 6739047, 4652794 ####[facility] [address] [place] [address] CHEMISTRYOrdered By: SYSTEM SYSTEM on 04-19-2023 Albumin [...] back by: DR. LINTON at: 04/19/2023 23:22:41 by:[id number] Globulin (S) [Mass/Vol] 3.3 g/dL Normal 1.4 [...] Remisol Heme Pre-Arrival Noteon Pre-Arrival Note Normal [facility] SEROLOGYOrdered By: Domitila gaffney on 04-19-2023 HCG.beta subunit (U) [Moles/Vol] Negative Normal [facility] URINALYSISOrdered By: Domitila Granado on [...] PM) Normal Negative [facility] UA Auto SS [place].plasma/Lithiu m.RBC (Bld) [Mass ratio] 0-3 /HPF Normal [...] PM) Invalid Interpretation Code 1.005 - 1.030 [facility] [place] UA Auto SS UA Spec Desc Clean Catch (04/19/23 10:25 PM) Normal [facility] [place] UA Auto SS Urobilinogen Qn (U) 0.5771350 {Surinder'U}/dL Normal 0.0 - 1.0 EU/dL [facility] [place] UA Auto SS WBC Auto Ql (U) Negative (04/19/23 10:25 PM) Normal Negative [facility] [place] UA Auto SS WBC LM.HPF (Urine sed) [#/Area] 0-5 /HPF Normal 0-5/HPF [facility] [place] UA Auto SS ED Note-Physicianon 04-09-19 ED Note-Physician [id number] 2031 [id number] F Normal [facility] Alanine aminotransferase [En zymatic activity/volume] in Serum or PlasmaOrdered By: Eric Lara on 04-08-2023 ALT [Catalytic activity/Vol] 169 U/L 7-52 [facility] Albumin [Mass/volume] in Ser um or Plasma by Bromocresol green (BCG) dye binding methoOrdered By: Eric Lara on 04-08-2023 Albumin BCG dye [Mass/Vol] 4.1 g/dL 3.5-5.7 [facility] Alkaline phosphatase [Enzyma tic activity/volume] in Serum or PlasmaOrdered By: Eric Lara on 04-08-2023 ALP [Catalytic activity/Vol] 66 U/L 34-104 [facility] Amylase [Enzymatic activity/ volume] in Serum or PlasmaOrdered By: Eric Lara on 04-08-2023 Amylase [Catalytic activity/Vol] 70 U/L 29-103 [facility] Aspartate aminotransferase [ Enzymatic activity/volume] in Serum or PlasmaOrdered By: Eric Lara on 04-08-2023 AST [Catalytic activity/Vol] 121 U/L 13-39 [facility] Automated erythrocytes count in urine sediment (number/area)Ordered By: Eric Lara on 04-08-2023 RBC Auto (Urine sed) [#/Area] 0-1 [HPF] 0-4 [facility] Automated leukocytes count i n urine sediment (number/area)Ordered By: Eric Lara on 04-08-2023 WBC Auto (Urine sed) [#/Area] 5-9 [HPF] 0-4 [facility] Basophils Auto (Bld) [#/Vol] Ordered By: Eric Lara on 04-08-2023 Basophils (Bld) [#/Vol] 0.0 10*3/uL 0.0-0.2 [facility] Basophils/100 WBC Auto (Bld) Ordered By: Eric Lara on 04-08-2023 Basophils/100 WBC (Bld) 0.8 % . [facility] Bilirubin Test strip Ql (U)O rdered By: Eric Lara on 04-08-2023 Bilirubin Ql (U) Negative Negative [facility] Bilirubin.direct [Mass/volum e] in Serum or PlasmaOrdered By: Erci Lara on 04-08-2023 Bilirubin.direct [Mass/Vol] 0.10 mg/dL 0.03-0.18 [facility] Bilirubin.total [Mass/volume ] in Serum or PlasmaOrdered By: Eric Lara on 04-08-2023 Bilirubin [Mass/Vol] 0.4 mg/dL 0.3-1.0 [facility] Calcium [Mass/volume] in Ser um or PlasmaOrdered By: Eric Lara on 04-08-2023 Calcium [Mass/Vol] 8.9 mg/dL 8.6-10.3 [facility] Carbon dioxide, total [Moles /volume] in Serum or PlasmaOrdered By: Eric Lara on 04-08-2023 CO2 [Moles/Vol] 20.2 mmol/L 21.0-31.0 [facility] Chloride [Moles/volume] in S marbella or PlasmaOrdered By: Eric Lara on 04-08-2023 Chloride [Moles/Vol] 108 mmol/L 98-107 [facility] Color Auto (U)Ordered By: Anita Lara on 04-08-2023 Color (U) Yellow Yellow [facility] Creatinine [Mass/volume] in Serum or PlasmaOrdered By: Eric Lara on 04-08-2023 Creatinine [Mass/Vol] 0.65 mg/dL 0.60-1.20 [facility] ED Note-Physicianon 04-08-19 ED Note-Physician [id number] 2011 [id number]#[id number] F Normal [facility] Eosinophils Auto (Bld) [#/Vo l]Ordered By: Eric Lara on 04-08-2023 Eosinophils (Bld) [#/Vol] 0.1 10*3/uL 0.0-0.45 [facility] Eosinophils/100 WBC Auto (Bl d)Ordered By: Eric Lara on 04-08-2023 Eosinophils/100 WBC (Bld) 1.0 % . [facility] Erythrocyte distribution wid th Auto (RBC) [Ratio]Ordered By: Eric Lara on 04-08-2023 Erythrocyte distribution width (RBC) [Ratio] 13.7 % 11.9-15.3 [facility] Ethanol [Mass/volume] in Ser um or PlasmaOrdered By: Eric Lara on 04-08-2023 Ethanol [Mass/Vol] mg/dL [facility] Ethanol [Mass/Vol] TNP [facility] Comment on above: Test not performed Globulin Calc (S) [Mass/Vol] Ordered By: Eric Lara on 04-08-2023 Globulin (S) [Mass/Vol] 3.5 g/dL [facility] Glucose [Mass/volume] in Ser um or PlasmaOrdered By: Eric Lara on 04-08-2023 Glucose [Mass/Vol] 85 mg/dL 70-100 [facility] Comment on above: ADA recommended refe rence rangeRandom Glucose Reference Range is dependent on time and content of last meal. Glucose of more than 200 mg/dL in a nonstressed, ambulatory subject supports the diagnosis of Diabetes Mellitus. HCG ( test) IAjose luis d Ql (U)Ordered By: RENEE HAWKINS on 04-08-2023 HCG ( test) Ql (U) Negative [facility] Hematocrit Auto (Bld) [Volum e fraction]Ordered By: Eric Lara on 04-08-2023 Hematocrit (Bld) [Volume fraction] 45.6 % 34.0-46.4 [facility] Hemoglobin [Mass/volume] in BloodOrdered By: Eric Lara on 04-08-2023 Hemoglobin (Bld) [Mass/Vol] 15.5 g/dL 11.8-15.4 [facility] Ketones Auto test strip (U) [Mass/Vol]Ordered By: Eric Lara on 04-08-2023 Ketones (U) [Mass/Vol] Negative Negative [facility] Laboratory - UrinalysisOrder ed By: Eric Lara on 04-08-2023 Hyaline casts LM Ql (Urine sed) 0-8 [LPF] 0-8 [facility] Leukocytes [#/volume] correc jose for nucleated erythrocytes in Blood by Automated counOrdered By: Eric Lara on 04-08-2023 WBC corrected for nucl RBC Auto (Bld) [#/Vol] 5.1 10*3/uL 3.8-11.6 [facility] Lipase [Enzymatic activity/v olume] in Serum or PlasmaOrdered By: Eric Lara on 04-08-2023 Lipase [Catalytic activity/Vol] 68.0 U/L 11.0-82.0 [facility] Lymphocytes Auto (Bld) [#/Vo l]Ordered By: Eric Lara on 04-08-2023 Lymphocytes (Bld) [#/Vol] 1.6 10*3/uL 1.00-4.8 [facility] Lymphocytes/100 WBC Auto (Bl d)Ordered By: Eric Lara on 04-08-2023 Lymphocytes/100 WBC (Bld) 32.4 % . [facility] MCH Auto (RBC) [Entitic mass ]Ordered By: Eric Lara on 04-08-2023 MCH (RBC) [Entitic mass] 33.6 pg 24.7-34.3 [facility] MCHC Auto (RBC) [Mass/Vol]Or dered By: Eric Lara on 04-08-2023 MCHC (RBC) [Mass/Vol] 34.0 g/dL 32.0-35.0 [facility] MCV Auto (RBC) [Entitic vol] Ordered By: Eric Lara on 04-08-2023 MCV (RBC) [Entitic vol] 98.9 fL 80-100 [facility] Monocyte distribution width [Entitic volume] in Blood by AutomatedOrdered By: Eric Lara on 04-08-2023 Monocyte distribution width Auto (Bld) [Entitic vol] 19.15 % 0.00-20.00 [facility] Monocytes Auto (Bld) [#/Vol] Ordered By: Eric Lara on 04-08-2023 Monocytes (Bld) [#/Vol] 0.3 10*3/uL 0.0-0.8 [facility] Monocytes/100 WBC Auto (Bld) Ordered By: Eric Lara on 04-08-2023 Monocytes/100 WBC (Bld) 6.3 % . [facility] Neutrophils Auto (Bld) [#/Vo l]Ordered By: Eric Lara on 04-08-2023 Neutrophils (Bld) [#/Vol] 3.0 10*3/uL 1.8-7.7 [facility] Neutrophils/100 WBC Auto (Bl d)Ordered By: Eric Lara on 04-08-2023 Neutrophils/100 WBC (Bld) 59.5 % . [facility] Nitrite Test strip Ql (U)Ord ered By: Eric Lara on 04-08-2023 Nitrite Ql (U) Negative Negative [facility] No Panel InformationOrdered By: Eric Lara on 04-08-2023 Estimated GFR (CKD-EPI) > 60.0 mL/Min [facility] Creatinine Clearance (Chem 117.32 [facility] Nucleated erythrocytes [Pres ence] in Blood by Automated countOrdered By: Eric Lara on 04-08-2023 Nucleated RBC Auto Ql (Bld) 0.3 /100{WBC} 0-0.5 [facility] Platelet mean volume Auto (B ld) [Entitic vol]Ordered By: Eric Lara on 04-08-2023 Platelet mean volume (Bld) [Entitic vol] 8.6 fL 6.3-10.7 [facility] Platelets Auto (Bld) [#/Vol] Ordered By: Eric Lara on 04-08-2023 Platelets (Bld) [#/Vol] 137 10*3/uL 150-450 [facility] Potassium [Moles/volume] in Serum or PlasmaOrdered By: Eric Lara on 04-08-2023 Potassium [Moles/Vol] 4.3 mmol/L 3.5-5.1 [facility] Comment on above: Hemolysis is present at a level that could interfere with the result. Protein Auto test strip (U) [Mass/Vol]Ordered By: Eric Lara on 04-08-2023 Protein (U) [Mass/Vol] Negative Negative [facility] Protein [Mass/volume] in Ser um or PlasmaOrdered By: Eric Lara on 04-08-2023 Protein [Mass/Vol] 7.6 g/dL 6.4-8.9 [facility] RBC Auto (Bld) [#/Vol]Ordere d By: Eric Lara on 04-08-2023 RBC (Bld) [#/Vol] 4.61 10*6/uL 3.60-5.00 [facility] Serum or plasma albumin/glob ulin mass ratioOrdered By: Eric Lara on 04-08-2023 Albumin/Globulin [Mass ratio] 1.2 {ratio} [facility] Serum or plasma anion gap de terminationOrdered By: Eric Lara on 04-08-2023 Anion gap [Moles/Vol] 12.1 mmol/L 6.0-15.0 [facility] Serum or plasma non-glucuron idated bilirubin measurement (mass/volume)Ordered By: Eric Lara on 04-08-2023 Bilirubin.indirect [Mass/Vol] 0.3 mg/dL [facility] Sodium [Moles/volume] in Ser um or PlasmaOrdered By: Eric Lara on 04-08-2023 Sodium [Moles/Vol] 136 mmol/L 136-145 [facility] Specific gravity Auto test s trip (U) [Rel density]Ordered By: Eric Lara on 04-08-2023 Specific gravity (U) [Rel density] 1.017 1.001-1.030 [facility] Squamous epithelial cells de tection in urine sediment by light microscopyOrdered By: Eric Lara on 04-08-2023 Epithelial cells.squamous LM Ql (Urine sed) 0-1 [HPF] 0-2 [facility] Urea nitrogen [Mass/volume] in Serum or PlasmaOrdered By: Eric Lara on 04-08-2023 Urea nitrogen [Mass/Vol] 16 mg/dL 7-25 [facility] Urine bacteria detection by automated methodOrdered By: Eric Lara on 04-08-2023 Bacteria Auto Ql (U) None seen None Seen [facility] Urine clarity by refractomet ry automatedOrdered By: Eric Lara on 04-08-2023 Clarity Refractometry automated (U) Clear Clear [facility] Urine culture routineOrdered By: Eric Lara on 04-08-2023 Bacteria identified Cx Nom (U) 2 Days [facility] Urine glucose measurement by automated test strip (mass/volume)Ordered By: Eric Lara on 04-08-2023 Glucose Auto test strip (U) [Mass/Vol] Normal mg/dL Normal [facility] Urine hemoglobin detection b y automated test stripOrdered By: Eric Lara on 04-08-2023 Hemoglobin Auto test strip Ql (U) Trace Negative [facility] Urine leukocyte esterase det ection by automated test stripOrdered By: Eric Lara on 04-08-2023 Leukocyte esterase Auto test strip Ql (U) 1+ Negative [facility] Urobilinogen Auto test strip (U) [Mass/Vol]Ordered By: Eric Lara on 04-08-2023 Urobilinogen (U) [Mass/Vol] Normal mg/dL Normal [facility] WBC Auto (Bld) [#/Vol]Ordere d By: Eric Lara on 04-08-2023 WBC (Bld) [#/Vol] 5.1 10*3/uL 3.8-11.6 [facility] pH Auto test strip (U)Ordere d By: Eric Lara on 04-08-2023 pH (U) 7.5 [pH] 5.0-9.0 [facility] Alanine aminotransferase [En zymatic activity/volume] in Serum or PlasmaOrdered By: Declan Marina on 04-06-2023 ALT [Catalytic activity/Vol] 273 U/L 7-52 [facility] Albumin [Mass/volume] in Ser um or Plasma by Bromocresol green (BCG) dye binding methoOrdered By: Declan Marina on 04-06-2023 Albumin BCG dye [Mass/Vol] 4.1 g/dL 3.5-5.7 [facility] Alkaline phosphatase [Enzyma tic activity/volume] in Serum or PlasmaOrdered By: Declan Marina on 04-06-2023 ALP [Catalytic activity/Vol] 73 U/L 34-104 [facility] Aspartate aminotransferase [ Enzymatic activity/volume] in Serum or PlasmaOrdered By: Declan Marina on 04-06-2023 AST [Catalytic activity/Vol] 285 U/L 13-39 [facility] Basophils Auto (Bld) [#/Vol] Ordered By: Declan Marina on 04-06-2023 Basophils (Bld) [#/Vol] 0.0 10*3/uL 0.0-0.2 [facility] Basophils/100 WBC Auto (Bld) Ordered By: Declan Marina on 04-06-2023 Basophils/100 WBC (Bld) 0.7 % . [facility] Bilirubin.total [Mass/volume ] in Serum or PlasmaOrdered By: Declan Marina on 04-06-2023 Bilirubin [Mass/Vol] 0.2 mg/dL 0.3-1.0 [facility] Calcium [Mass/volume] in Ser um or PlasmaOrdered By: Declan Marina on 04-06-2023 Calcium [Mass/Vol] 8.6 mg/dL 8.6-10.3 [facility] Carbon dioxide, total [Moles /volume] in Serum or PlasmaOrdered By: Declan Marina on 04-06-2023 CO2 [Moles/Vol] 21.9 mmol/L 21.0-31.0 [facility] Chloride [Moles/volume] in S marbella or PlasmaOrdered By: Declan Marina on 04-06-2023 Chloride [Moles/Vol] 109 mmol/L 98-107 [facility] Creatinine [Mass/volume] in Serum or PlasmaOrdered By: Declan Marina on 04-06-2023 Creatinine [Mass/Vol] 0.49 mg/dL 0.60-1.20 [facility] Eosinophils Auto (Bld) [#/Vo l]Ordered By: Declan Marina on 04-06-2023 Eosinophils (Bld) [#/Vol] 0.1 10*3/uL 0.0-0.45 [facility] Eosinophils/100 WBC Auto (Bl d)Ordered By: Declan Marina on 04-06-2023 Eosinophils/100 WBC (Bld) 1.0 % . [facility] Erythrocyte distribution wid th Auto (RBC) [Ratio]Ordered By: Declan Marina on 04-06-2023 Erythrocyte distribution width (RBC) [Ratio] 13.9 % 11.9-15.3 [facility] Ethanol [Mass/volume] in Ser um or PlasmaOrdered By: Declan Marina on 04-06-2023 Ethanol [Mass/Vol] 339 mg/dL [facility] Ethanol [Mass/Vol] 0.339 % [facility] Globulin Calc (S) [Mass/Vol] Ordered By: Declan Marina on 04-06-2023 Globulin (S) [Mass/Vol] 3.4 g/dL [facility] Glucose [Mass/volume] in Ser um or PlasmaOrdered By: Declan Marina on 04-06-2023 Glucose [Mass/Vol] 83 mg/dL 70-100 [facility] Comment on above: ADA recommended refe rence rangeRandom Glucose Reference Range is dependent on time and content of last meal. Glucose of more than 200 mg/dL in a nonstressed, ambulatory subject supports the diagnosis of Diabetes Mellitus. Hematocrit Auto (Bld) [Volum e fraction]Ordered By: Declan Marina on 04-06-2023 Hematocrit (Bld) [Volume fraction] 42.6 % 34.0-46.4 [facility] Hemoglobin [Mass/volume] in BloodOrdered By: Declan Marina on 04-06-2023 Hemoglobin (Bld) [Mass/Vol] 14.7 g/dL 11.8-15.4 [facility] Leukocytes [#/volume] correc jose for nucleated erythrocytes in Blood by Automated counOrdered By: Declan Marina on 04-06-2023 WBC corrected for nucl RBC Auto (Bld) [#/Vol] 6.9 10*3/uL 3.8-11.6 [facility] Lymphocytes Auto (Bld) [#/Vo l]Ordered By: Declan Marina on 04-06-2023 Lymphocytes (Bld) [#/Vol] 2.3 10*3/uL 1.00-4.8 [facility] Lymphocytes/100 WBC Auto (Bl d)Ordered By: Declan Marina on 04-06-2023 Lymphocytes/100 WBC (Bld) 33.2 % . [facility] MCH Auto (RBC) [Entitic mass ]Ordered By: Declan Marina on 04-06-2023 MCH (RBC) [Entitic mass] 34.0 pg 24.7-34.3 [facility] MCHC Auto (RBC) [Mass/Vol]Or dered By: Declan Marina on 04-06-2023 MCHC (RBC) [Mass/Vol] 34.5 g/dL 32.0-35.0 [facility] MCV Auto (RBC) [Entitic vol] Ordered By: Declan Marina on 04-06-2023 MCV (RBC) [Entitic vol] 98.5 fL 80-100 [facility] Monocyte distribution width [Entitic volume] in Blood by AutomatedOrdered By: Declan Marina on 04-06-2023 Monocyte distribution width Auto (Bld) [Entitic vol] 17.69 % 0.00-20.00 [facility] Monocytes Auto (Bld) [#/Vol] Ordered By: Declan Marina on 04-06-2023 Monocytes (Bld) [#/Vol] 0.3 10*3/uL 0.0-0.8 [facility] Monocytes/100 WBC Auto (Bld) Ordered By: Declan Marina on 04-06-2023 Monocytes/100 WBC (Bld) 4.2 % . [facility] Neutrophils Auto (Bld) [#/Vo l]Ordered By: Declan Marina on 04-06-2023 Neutrophils (Bld) [#/Vol] 4.2 10*3/uL 1.8-7.7 [facility] Neutrophils/100 WBC Auto (Bl d)Ordered By: Declan Marina on 04-06-2023 Neutrophils/100 WBC (Bld) 60.9 % . [facility] No Panel InformationOrdered By: Declan Marina on 04-06-2023 Estimated GFR (CKD-EPI) > 60.0 mL/Min [facility] Creatinine Clearance (Chem 154.57 [facility] Nucleated erythrocytes [Pres ence] in Blood by Automated countOrdered By: Declan Marina on 04-06-2023 Nucleated RBC Auto Ql (Bld) 0.2 /100{WBC} 0-0.5 [facility] Platelet mean volume Auto (B ld) [Entitic vol]Ordered By: Declan Marina on 04-06-2023 Platelet mean volume (Bld) [Entitic vol] 8.0 fL 6.3-10.7 [facility] Platelets Auto (Bld) [#/Vol] Ordered By: Declan Marina on 04-06-2023 Platelets (Bld) [#/Vol] 164 10*3/uL 150-450 [facility] Potassium [Moles/volume] in Serum or PlasmaOrdered By: Declan Marina on 04-06-2023 Potassium [Moles/Vol] 4.3 mmol/L 3.5-5.1 [facility] Protein [Mass/volume] in Ser um or PlasmaOrdered By: Declan Marina on 04-06-2023 Protein [Mass/Vol] 7.5 g/dL 6.4-8.9 [facility] RBC Auto (Bld) [#/Vol]Ordere d By: Declan Marina on 04-06-2023 RBC (Bld) [#/Vol] 4.33 10*6/uL 3.60-5.00 [facility] Serum or plasma albumin/glob ulin mass ratioOrdered By: Declan Marina on 04-06-2023 Albumin/Globulin [Mass ratio] 1.2 {ratio} [facility] Serum or plasma anion gap de terminationOrdered By: Declan Marina on 04-06-2023 Anion gap [Moles/Vol] 12.4 mmol/L 6.0-15.0 [facility] Sodium [Moles/volume] in Ser um or PlasmaOrdered By: Declan Marina on 04-06-2023 Sodium [Moles/Vol] 139 mmol/L 136-145 [facility] Urea nitrogen [Mass/volume] in Serum or PlasmaOrdered By: Declan Marina on 04-06-2023 Urea nitrogen [Mass/Vol] 11 mg/dL 7-25 [facility] WBC Auto (Bld) [#/Vol]Ordere d By: Declan Marina on 04-06-2023 WBC (Bld) [#/Vol] 6.9 10*3/uL 3.8-11.6 [facility] ED Note-Physicianon 03-18-19 ED Note-Physician [id number] 2009 [id number]#[id number] F Normal [facility] Alanine aminotransferase [En zymatic activity/volume] in Serum or PlasmaOrdered By: Delvis Benz on 03-17-2023 ALT [Catalytic activity/Vol] 131 U/L 7-52 [facility] Albumin [Mass/volume] in Ser um or Plasma by Bromocresol green (BCG) dye binding methoOrdered By: Delvis Benz on 03-17-2023 Albumin BCG dye [Mass/Vol] 4.2 g/dL 3.5-5.7 [facility] Alkaline phosphatase [Enzyma tic activity/volume] in Serum or PlasmaOrdered By: Delvis Benz on 03-17-2023 ALP [Catalytic activity/Vol] 64 U/L 34-104 [facility] Amphetamine Screen Ql (U)Ord ered By: Delvis Benz on 03-17-2023 Amphetamines Ql (U) Negative Negative [facility] Aspartate aminotransferase [ Enzymatic activity/volume] in Serum or PlasmaOrdered By: Delvis Benz on 03-17-2023 AST [Catalytic activity/Vol] 126 U/L 13-39 [facility] Automated erythrocytes count in urine sediment (number/area)Ordered By: Delvis Benz on 03-17-2023 RBC Auto (Urine sed) [#/Area] 0-1 [HPF] 0-4 [facility] Automated leukocytes count i n urine sediment (number/area)Ordered By: Delvis Benz on 03-17-2023 WBC Auto (Urine sed) [#/Area] 10-19 [HPF] 0-4 [facility] Barbiturates [Presence] in U rine by Screen methodOrdered By: Delvis Benz on 03-17-2023 Barbiturates Screen Ql (U) Negative Negative [facility] Basophils Auto (Bld) [#/Vol] Ordered By: Delvis Benz on 03-17-2023 Basophils (Bld) [#/Vol] 0.0 10*3/uL 0.0-0.2 [facility] Basophils/100 WBC Auto (Bld) Ordered By: Delvis Benz on 03-17-2023 Basophils/100 WBC (Bld) 0.6 % . [facility] Benzodiazepines Screen Ql (U )Ordered By: Delvis Benz on 03-17-2023 Benzodiazepines Ql (U) Negative Negative [facility] Benzoylecgonine [Presence] i n Urine by Screen methodOrdered By: Delvis Benz on 03-17-2023 Benzoylecgonine Screen Ql (U) Positive Negative [facility] Bilirubin Test strip Ql (U)O rdered By: Delvis Benz on 03-17-2023 Bilirubin Ql (U) Negative Negative [facility] Bilirubin.total [Mass/volume ] in Serum or PlasmaOrdered By: Delvis Benz on 03-17-2023 Bilirubin [Mass/Vol] 0.9 mg/dL 0.3-1.0 [facility] Calcium [Mass/volume] in Ser um or PlasmaOrdered By: Delvis Benz on 03-17-2023 Calcium [Mass/Vol] 8.8 mg/dL 8.6-10.3 [facility] Cannabinoids [Presence] in U rine by Screen methodOrdered By: Delvis Benz on 03-17-2023 Cannabinoids Screen Ql (U) Negative Negative [facility] Comment on above: These are unconfirme d results and should not be used for legal purposes. Drug Cut-Off Concentration: AMPH 1000 ng/mL JANELL 200 ng/mL JAMES 200 ng/mL COCM 300 ng/mL OP 300 ng/mL PCP 25 ng/mL THC 20 ng/mL Carbon dioxide, total [Moles /volume] in Serum or PlasmaOrdered By: Delvis Benz on 03-17-2023 CO2 [Moles/Vol] 25.3 mmol/L 21.0-31.0 [facility] Chloride [Moles/volume] in S marbella or PlasmaOrdered By: Delvis Benz on 03-17-2023 Chloride [Moles/Vol] 104 mmol/L 98-107 [facility] Color Auto (U)Ordered By: Jorge Benz on 03-17-2023 Color (U) Yellow Yellow [facility] Creatinine [Mass/volume] in Serum or PlasmaOrdered By: Delvis Benz on 03-17-2023 Creatinine [Mass/Vol] 0.63 mg/dL 0.60-1.20 [facility] Eosinophils Auto (Bld) [#/Vo l]Ordered By: Delvis Benz on 03-17-2023 Eosinophils (Bld) [#/Vol] 0.1 10*3/uL 0.0-0.45 [facility] Eosinophils/100 WBC Auto (Bl d)Ordered By: Delvis Benz on 03-17-2023 Eosinophils/100 WBC (Bld) 1.1 % . [facility] Erythrocyte distribution wid th Auto (RBC) [Ratio]Ordered By: Delvis Benz on 03-17-2023 Erythrocyte distribution width (RBC) [Ratio] 13.3 % 11.9-15.3 [facility] Globulin Calc (S) [Mass/Vol] Ordered By: Delvis Benz on 03-17-2023 Globulin (S) [Mass/Vol] 3.3 g/dL [facility] Glucose [Mass/volume] in Ser um or PlasmaOrdered By: Delvis Benz on 03-17-2023 Glucose [Mass/Vol] 88 mg/dL 70-100 [facility] Comment on above: ADA recommended refe rence rangeRandom Glucose Reference Range is dependent on time and content of last meal. Glucose of more than 200 mg/dL in a nonstressed, ambulatory subject supports the diagnosis of Diabetes Mellitus. HCG ( test) IA.rapi d Ql (U)Ordered By: Delvis Benz on 03-17-2023 HCG ( test) Ql (U) Negative [facility] Hematocrit Auto (Bld) [Volum e fraction]Ordered By: Delvis Benz on 03-17-2023 Hematocrit (Bld) [Volume fraction] 40.7 % 34.0-46.4 [facility] Hemoglobin [Mass/volume] in BloodOrdered By: Delvis Benz 03-17-2023 Hemoglobin (Bld) [Mass/Vol] 14.2 g/dL 11.8-15.4 [facility] INR in Platelet poor plasma by Coagulation assayOrdered By: Delvis Benz on 03-17-2023 INR Coag (PPP) [Relative time] 1.0 {INR} [facility] Comment on above: INR Therapeutic Rang [...] with mechanical heart valves: 3 - 4.5 Ketones Auto test strip (U) [Mass/Vol]Ordered By: Delvis Benz on 03-17-2023 Ketones (U) [Mass/Vol] Negative Negative [facility] - UrinalysisOrder ed By: Delvis Benz on 03-17-2023 Hyaline casts LM Ql (Urine sed) 0-8 [LPF] 0-8 [facility] Leukocytes [#/volume] correc jose for nucleated erythrocytes in Blood by Automated counOrdered By: Delvis Benz on 03-17-2023 WBC corrected for nucl RBC Auto (Bld) [#/Vol] 7.2 10*3/uL 3.8-11.6 [facility] Lipase [Enzymatic activity/v olume] in Serum or PlasmaOrdered By: Delvis Benz on 03-17-2023 Lipase [Catalytic activity/Vol] 67.0 U/L 11.0-82.0 [facility] Lymphocytes Auto (Bld) [#/Vo l]Ordered By: Delvis Benz on 03-17-2023 Lymphocytes (Bld) [#/Vol] 3.6 10*3/uL 1.00-4.8 [facility] Lymphocytes/100 WBC Auto (Bl d)Ordered By: Delvis Benz on 03-17-2023 Lymphocytes/100 WBC (Bld) 49.4 % . [facility] MCH Auto (RBC) [Entitic mass ]Ordered By: Delvis Benz on 03-17-2023 MCH (RBC) [Entitic mass] 33.5 pg 24.7-34.3 [facility] MCHC Auto (RBC) [Mass/Vol]Or dered By: Delvis Benz on 03-17-2023 MCHC (RBC) [Mass/Vol] 34.9 g/dL 32.0-35.0 [facility] MCV Auto (RBC) [Entitic vol] Ordered By: Delvis Benz on 03-17-2023 MCV (RBC) [Entitic vol] 95.9 fL 80-100 [facility] Monocyte distribution width [Entitic volume] in Blood by AutomatedOrdered By: Delvis Benz on 03-17-2023 Monocyte distribution width Auto (Bld) [Entitic vol] 18.74 % 0.00-20.00 [facility] Monocytes Auto (Bld) [#/Vol] Ordered By: Delvis Benz on 03-17-2023 Monocytes (Bld) [#/Vol] 0.4 10*3/uL 0.0-0.8 [facility] Monocytes/100 WBC Auto (Bld) Ordered By: Delvis Benz on 03-17-2023 Monocytes/100 WBC (Bld) 5.0 % . [facility] Neutrophils Auto (Bld) [#/Vo l]Ordered By: Delvis Benz on 03-17-2023 Neutrophils (Bld) [#/Vol] 3.2 10*3/uL 1.8-7.7 [facility] Neutrophils/100 WBC Auto (Bl d)Ordered By: Delvis Benz on 03-17-2023 Neutrophils/100 WBC (Bld) 43.9 % . [facility] Nitrite Test strip Ql (U)Ord ered By: Delvis Benz on 03-17-2023 Nitrite Ql (U) Negative Negative [facility] No Panel InformationOrdered By: Delvis Benz on 03-17-2023 Estimated GFR (CKD-EPI) > 60.0 mL/Min [facility] Creatinine Clearance (Chem 119.57 [facility] Nucleated erythrocytes [Pres ence] in Blood by Automated countOrdered By: Delvis Benz on 03-17-2023 Nucleated RBC Auto Ql (Bld) 0.1 /100{WBC} 0-0.5 [facility] Opiates [Presence] in Urine by Screen methodOrdered By: Delvis Benz on 03-17-2023 Opiates Screen Ql (U) Negative Negative [facility] Phencyclidine Screen Ql (U)O rdered By: Delvis Benz on 03-17-2023 Phencyclidine Ql (U) Negative Negative [facility] Platelet mean volume Auto (B ld) [Entitic vol]Ordered By: Delvis Benz on 03-17-2023 Platelet mean volume (Bld) [Entitic vol] 8.5 fL 6.3-10.7 [facility] Platelets Auto (Bld) [#/Vol] Ordered By: Delvis Benz on 03-17-2023 Platelets (Bld) [#/Vol] 139 10*3/uL 150-450 [facility] Potassium [Moles/volume] in Serum or PlasmaOrdered By: Delvis Benz on 03-17-2023 Potassium [Moles/Vol] 3.8 mmol/L 3.5-5.1 [facility] Protein Auto test strip (U) [Mass/Vol]Ordered By: Delvis Benz on 03-17-2023 Protein (U) [Mass/Vol] Negative Negative [facility] Protein [Mass/volume] in Ser um or PlasmaOrdered By: Delvis Benz on 03-17-2023 Protein [Mass/Vol] 7.5 g/dL 6.4-8.9 [facility] Prothrombin time (PT)Ordered By: Delvis Benz on 03-17-2023 PT Coag (PPP) [Time] 11.6 s 9.0-12.9 [facility] Comment on above: A hematocrit value g reater than 55% may lead to inaccurate results in coagulation testing. Patients having hematocrit values >55% require a special collection tube for coagulation studies. Please contact the laboratory at [phone] for redraw instructions. RBC Auto (Bld) [#/Vol]Ordere d By: Delvis Benz on 03-17-2023 RBC (Bld) [#/Vol] 4.24 10*6/uL 3.60-5.00 [facility] Serum or plasma albumin/glob ulin mass ratioOrdered By: Delvis Benz on 03-17-2023 Albumin/Globulin [Mass ratio] 1.3 {ratio} [facility] Serum or plasma anion gap de terminationOrdered By: Delvis Benz on 03-17-2023 Anion gap [Moles/Vol] 11.5 mmol/L 6.0-15.0 [facility] Sodium [Moles/volume] in Ser um or PlasmaOrdered By: Delvis Benz on 03-17-2023 Sodium [Moles/Vol] 137 mmol/L 136-145 [facility] Specific gravity Auto test s trip (U) [Rel density]Ordered By: Delvis Benz on 03-17-2023 Specific gravity (U) [Rel density] 1.029 1.001-1.030 [facility] Squamous epithelial cells de tection in urine sediment by light microscopyOrdered By: Delvis Benz on 03-17-2023 Epithelial cells.squamous LM Ql (Urine sed) 3-4 [HPF] 0-2 [facility] Urea nitrogen [Mass/volume] in Serum or PlasmaOrdered By: Delvis Benz on 03-17-2023 Urea nitrogen [Mass/Vol] 16 mg/dL 7-25 [facility] Urine bacteria detection by automated methodOrdered By: Delvis Benz on 03-17-2023 Bacteria Auto Ql (U) None seen None Seen [facility] Urine clarity by refractomet ry automatedOrdered By: Delvis Benz on 03-17-2023 Clarity Refractometry automated (U) Clear Clear [facility] Urine culture routineOrdered By: Delvis Benz on 03-17-2023 Bacteria identified Cx Nom (U) Strep. agalactiae Grp B [facility] Bacteria identified Cx Nom (U) Strep. agalactiae Grp B [facility] Urine glucose measurement by automated test strip (mass/volume)Ordered By: Delvis Benz on 03-17-2023 Glucose Auto test strip (U) [Mass/Vol] Normal mg/dL Normal [facility] Urine hemoglobin detection b y automated test stripOrdered By: Delvis Benz on 03-17-2023 Hemoglobin Auto test strip Ql (U) Negative Negative [facility] Urine leukocyte esterase det ection by automated test stripOrdered By: Delvis Benz on 03-17-2023 Leukocyte esterase Auto test strip Ql (U) 2+ Negative [facility] Urobilinogen Auto test strip (U) [Mass/Vol]Ordered By: Delvis Benz on 03-17-2023 Urobilinogen (U) [Mass/Vol] Normal mg/dL Normal [facility] WBC Auto (Bld) [#/Vol]Ordere d By: Delvis Benz on 03-17-2023 WBC (Bld) [#/Vol] 7.2 10*3/uL 3.8-11.6 [facility] Yeast detection in urine sed iment by light microscopyOrdered By: Delvis Benz on 03-17-2023 Yeast LM Ql (Urine sed) None seen [HPF] None Seen [facility] pH Auto test strip (U)Ordere d By: Delvis Benz on 03-17-2023 pH (U) 6.0 [pH] 5.0-9.0 [facility] ED Note-Physicianon 02-25-19 ED Note-Physician [id number] [id number]#[id number] F Normal [facility] Alanine aminotransferase [En zymatic activity/volume] in Serum or PlasmaOrdered By: Bridger Castro on 01-25-2023 ALT [Catalytic activity/Vol] 118 U/L 7-52 [facility] Albumin [Mass/volume] in Ser um or Plasma by Bromocresol green (BCG) dye binding methoOrdered By: Bridger Castro on 01-25-2023 Albumin BCG dye [Mass/Vol] 4.4 g/dL 3.5-5.7 [facility] Alkaline phosphatase [Enzyma tic activity/volume] in Serum or PlasmaOrdered By: Bridger Castro on 01-25-2023 ALP [Catalytic activity/Vol] 75 U/L 34-104 [facility] Amphetamine Screen Ql (U)Ord ered By: Bridger Castro on 01-25-2023 Amphetamines Ql (U) Positive Negative [facility] Aspartate aminotransferase [ Enzymatic activity/volume] in Serum or PlasmaOrdered By: Bridger Castro on 01-25-2023 AST [Catalytic activity/Vol] 84 U/L 13-39 [facility] Automated erythrocytes count in urine sediment (number/area)Ordered By: Bridger Castro on 01-25-2023 RBC Auto (Urine sed) [#/Area] 0-1 [HPF] 0-4 [facility] Automated leukocytes count i n urine sediment (number/area)Ordered By: Bridger Castro on 01-25-2023 WBC Auto (Urine sed) [#/Area] 1-2 [HPF] 0-4 [facility] Barbiturates [Presence] in U rine by Screen methodOrdered By: Bridger Castro on 01-25-2023 Barbiturates Screen Ql (U) Positive Negative [facility] Basophils Auto (Bld) [#/Vol] Ordered By: Bridger Castro on 01-25-2023 Basophils (Bld) [#/Vol] 0.1 10*3/uL 0.0-0.2 [facility] Basophils/100 WBC Auto (Bld) Ordered By: Bridger Castro on 01-25-2023 Basophils/100 WBC (Bld) 0.7 % . [facility] Benzodiazepines Screen Ql (U )Ordered By: Bridger Castro on 01-25-2023 Benzodiazepines Ql (U) Positive Negative [facility] Benzoylecgonine [Presence] i n Urine by Screen methodOrdered By: Bridger Castro on 01-25-2023 Benzoylecgonine Screen Ql (U) Positive Negative [facility] Bilirubin Test strip Ql (U)O rdered By: Bridger Castro on 01-25-2023 Bilirubin Ql (U) 2+ Negative [facility] Bilirubin.total [Mass/volume ] in Serum or PlasmaOrdered By: Bridger Castro on 01-25-2023 Bilirubin [Mass/Vol] 0.9 mg/dL 0.3-1.0 [facility] Calcium [Mass/volume] in Ser um or PlasmaOrdered By: Bridger Castro on 01-25-2023 Calcium [Mass/Vol] 9.3 mg/dL 8.6-10.3 [facility] Cannabinoids [Presence] in U rine by Screen methodOrdered By: Bridger Castro on 01-25-2023 Cannabinoids Screen Ql (U) Negative Negative [facility] Comment on above: These are unconfirme d results and should not be used for legal purposes. Drug Cut-Off Concentration: AMPH 1000 ng/mL JANELL 200 ng/mL JAMES 200 ng/mL COCM 300 ng/mL OP 300 ng/mL PCP 25 ng/mL THC 20 ng/mL Carbon dioxide, total [Moles /volume] in Serum or PlasmaOrdered By: Bridger Castro on 01-25-2023 CO2 [Moles/Vol] 24.8 mmol/L 21.0-31.0 [facility] Chloride [Moles/volume] in S marbella or PlasmaOrdered By: Bridger Castro on 01-25-2023 Chloride [Moles/Vol] 102 mmol/L 98-107 [facility] Color Auto (U)Ordered By: Rickey Castro on 01-25-2023 Color (U) Dark yellow Yellow [facility] Creatinine [Mass/volume] in Serum or PlasmaOrdered By: Bridger Castro on 01-25-2023 Creatinine [Mass/Vol] 0.71 mg/dL 0.60-1.20 [facility] Eosinophils Auto (Bld) [#/Vo l]Ordered By: Bridger Castro on 01-25-2023 Eosinophils (Bld) [#/Vol] 0.0 10*3/uL 0.0-0.45 [facility] Eosinophils/100 WBC Auto (Bl d)Ordered By: Bridger Castro on 01-25-2023 Eosinophils/100 WBC (Bld) 0.6 % . [facility] Erythrocyte distribution wid th Auto (RBC) [Ratio]Ordered By: Bridger Castro on 01-25-2023 Erythrocyte distribution width (RBC) [Ratio] 13.1 % 11.9-15.3 [facility] Ethanol [Mass/volume] in Ser um or PlasmaOrdered By: Bridger Castro on 01-25-2023 Ethanol [Mass/Vol] mg/dL [facility] Ethanol [Mass/Vol] TNP [facility] Comment on above: Test not performed Globulin Calc (S) [Mass/Vol] Ordered By: Bridger Castro on 01-25-2023 Globulin (S) [Mass/Vol] 3.4 g/dL [facility] Glucose [Mass/volume] in Ser um or PlasmaOrdered By: Bridger Castro on 01-25-2023 Glucose [Mass/Vol] 88 mg/dL 70-100 [facility] Comment on above: ADA recommended refe rence rangeRandom Glucose Reference Range is dependent on time and content of last meal. Glucose of more than 200 mg/dL in a nonstressed, ambulatory subject supports the diagnosis of Diabetes Mellitus. HCG ( test) IA.rapi d Ql (U)Ordered By: Bridger Castro on 01-25-2023 HCG ( test) Ql (U) Negative [facility] Hematocrit Auto (Bld) [Volum e fraction]Ordered By: Bridger Castro on 01-25-2023 Hematocrit (Bld) [Volume fraction] 38.3 % 34.0-46.4 [facility] Hemoglobin [Mass/volume] in BloodOrdered By: Bridger Castro on 01-25-2023 Hemoglobin (Bld) [Mass/Vol] 13.4 g/dL 11.8-15.4 [facility] Ketones Auto test strip (U) [Mass/Vol]Ordered By: Bridger Castro on 01-25-2023 Ketones (U) [Mass/Vol] Trace Negative [facility] Laboratory - UrinalysisOrder ed By: Bridger Castro on 01-25-2023 Hyaline casts LM Ql (Urine sed) 9-19 [LPF] 0-8 [facility] Leukocytes [#/volume] correc jose for nucleated erythrocytes in Blood by Automated counOrdered By: Bridger Castro on 01-25-2023 WBC corrected for nucl RBC Auto (Bld) [#/Vol] 7.4 10*3/uL 3.8-11.6 [facility] Lymphocytes Auto (Bld) [#/Vo l]Ordered By: Bridger Castro on 01-25-2023 Lymphocytes (Bld) [#/Vol] 2.7 10*3/uL 1.00-4.8 [facility] Lymphocytes/100 WBC Auto (Bl d)Ordered By: Bridger Castro on 01-25-2023 Lymphocytes/100 WBC (Bld) 35.8 % . [facility] MCH Auto (RBC) [Entitic mass ]Ordered By: Bridger Castro on 01-25-2023 MCH (RBC) [Entitic mass] 34.4 pg 24.7-34.3 [facility] MCHC Auto (RBC) [Mass/Vol]Or dered By: Bridger Castro on 01-25-2023 MCHC (RBC) [Mass/Vol] 34.9 g/dL 32.0-35.0 [facility] MCV Auto (RBC) [Entitic vol] Ordered By: Bridger Castro on 01-25-2023 MCV (RBC) [Entitic vol] 98.7 fL 80-100 [facility] Magnesium [Mass/volume] in S marbella or PlasmaOrdered By: Bridger Castro on 01-25-2023 Magnesium [Mass/Vol] 1.9 mg/dL 1.9-2.7 [facility] Monocyte distribution width [Entitic volume] in Blood by AutomatedOrdered By: Bridger Castro on 01-25-2023 Monocyte distribution width Auto (Bld) [Entitic vol] 19.94 % 0.00-20.00 [facility] Monocytes Auto (Bld) [#/Vol] Ordered By: Birdger Castro on 01-25-2023 Monocytes (Bld) [#/Vol] 0.8 10*3/uL 0.0-0.8 [facility] Monocytes/100 WBC Auto (Bld) Ordered By: Bridger Castro on 01-25-2023 Monocytes/100 WBC (Bld) 10.2 % . [facility] Neutrophils Auto (Bld) [#/Vo l]Ordered By: Bridger Castro on 01-25-2023 Neutrophils (Bld) [#/Vol] 3.9 10*3/uL 1.8-7.7 [facility] Neutrophils/100 WBC Auto (Bl d)Ordered By: Bridger Castro on 01-25-2023 Neutrophils/100 WBC (Bld) 52.7 % . [facility] Nitrite Test strip Ql (U)Ord ered By: Bridger Castro on 01-25-2023 Nitrite Ql (U) Positive Negative [facility] No Panel InformationOrdered By: Bridger Castro on 01-25-2023 Estimated GFR (CKD-EPI) > 60.0 mL/Min [facility] Creatinine Clearance (Chem 102.16 [facility] Nucleated erythrocytes [Pres ence] in Blood by Automated countOrdered By: Bridger Castro on 01-25-2023 Nucleated RBC Auto Ql (Bld) 0.1 /100{WBC} 0-0.5 [facility] Opiates [Presence] in Urine by Screen methodOrdered By: Bridger Castro on 01-25-2023 Opiates Screen Ql (U) Negative Negative [facility] Phencyclidine Screen Ql (U)O rdered By: Bridger Castro on 01-25-2023 Phencyclidine Ql (U) Negative Negative [facility] Platelet mean volume Auto (B ld) [Entitic vol]Ordered By: Bridger Castro on 01-25-2023 Platelet mean volume (Bld) [Entitic vol] 9.1 fL 6.3-10.7 [facility] Platelets Auto (Bld) [#/Vol] Ordered By: Bridger Castro on 01-25-2023 Platelets (Bld) [#/Vol] 124 10*3/uL 150-450 [facility] Potassium [Moles/volume] in Serum or PlasmaOrdered By: Bridger Castro on 01-25-2023 Potassium [Moles/Vol] 3.4 mmol/L 3.5-5.1 [facility] Protein Auto test strip (U) [Mass/Vol]Ordered By: Bridger Castro on 01-25-2023 Protein (U) [Mass/Vol] 30 mg/dL Negative [facility] Protein [Mass/volume] in Ser um or PlasmaOrdered By: Bridger Castro on 01-25-2023 Protein [Mass/Vol] 7.8 g/dL 6.4-8.9 [facility] RBC Auto (Bld) [#/Vol]Ordere d By: Bridger Castro on 01-25-2023 RBC (Bld) [#/Vol] 3.88 10*6/uL 3.60-5.00 [facility] Serum or plasma albumin/glob ulin mass ratioOrdered By: Bridger Castro on 01-25-2023 Albumin/Globulin [Mass ratio] 1.3 {ratio} [facility] Serum or plasma anion gap de terminationOrdered By: Bridger Castro on 01-25-2023 Anion gap [Moles/Vol] 12.6 mmol/L 6.0-15.0 [facility] Sodium [Moles/volume] in Ser um or PlasmaOrdered By: Bridger Castro on 01-25-2023 Sodium [Moles/Vol] 136 mmol/L 136-145 [facility] Specific gravity Auto test s trip (U) [Rel density]Ordered By: Bridger Castro on 01-25-2023 Specific gravity (U) [Rel density] 1.042 1.001-1.030 [facility] Squamous epithelial cells de tection in urine sediment by light microscopyOrdered By: Bridger Castro on 01-25-2023 Epithelial cells.squamous LM Ql (Urine sed) 3-4 [HPF] 0-2 [facility] Streptococcus pyogenes antig en detectionOrdered By: Bridger Castro on 01-25-2023 S. pyogenes Ag Ql (Unsp spec) [facility] Urea nitrogen [Mass/volume] in Serum or PlasmaOrdered By: Bridger Castro on 01-25-2023 Urea nitrogen [Mass/Vol] 13 mg/dL 7-25 [facility] Urine bacteria detection by automated methodOrdered By: Bridger Castro on 01-25-2023 Bacteria Auto Ql (U) None seen None Seen [facility] Urine clarity by refractomet ry automatedOrdered By: Bridger Castro on 01-25-2023 Clarity Refractometry automated (U) Clear Clear [facility] Urine culture routineOrdered By: Bridger Castro on 01-25-2023 Bacteria identified Cx Nom (U) Strep agalactiae - (group b) [facility] Urine glucose measurement by automated test strip (mass/volume)Ordered By: Bridger Castro on 01-25-2023 Glucose Auto test strip (U) [Mass/Vol] Normal mg/dL Normal [facility] Urine hemoglobin detection b y automated test stripOrdered By: Bridger Castro on 01-25-2023 Hemoglobin Auto test strip Ql (U) Negative Negative [facility] Urine leukocyte esterase det ection by automated test stripOrdered By: Bridger Castro on 01-25-2023 Leukocyte esterase Auto test strip Ql (U) 1+ Negative [facility] Urobilinogen Auto test strip (U) [Mass/Vol]Ordered By: Bridger Castro on 01-25-2023 Urobilinogen (U) [Mass/Vol] Normal mg/dL Normal [facility] WBC Auto (Bld) [#/Vol]Ordere d By: Bridger Castro on 01-25-2023 WBC (Bld) [#/Vol] 7.4 10*3/uL 3.8-11.6 [facility] pH Auto test strip (U)Ordere d By: Bridger Castro on 01-25-2023 pH (U) 5.5 [pH] 5.0-9.0 [facility] ED Note-Physicianon 01-22-20 ED Note-Physician [id number]#1.00TIF F Normal [facility] Alanine aminotransferase [En zymatic activity/volume] in Serum or PlasmaOrdered By: Pavel Elizondo on 01-19-2023 ALT [Catalytic activity/Vol] 142 U/L [facility] Albumin [Mass/volume] in Ser um or Plasma by Bromocresol green (BCG) dye binding methoOrdered By: Pavel Elizondo on 01-19-2023 Albumin BCG dye [Mass/Vol] 4.4 g/dL 3.5-5.7 [facility] Alkaline phosphatase [Enzyma tic activity/volume] in Serum or PlasmaOrdered By: Pavel Elizondo on 01-19-2023 ALP [Catalytic activity/Vol] 87 U/L 34-104 [facility] Aspartate aminotransferase [ Enzymatic activity/volume] in Serum or PlasmaOrdered By: Pavel Elizondo on 01-19-2023 AST [Catalytic activity/Vol] 220 U/L 13-39 [facility] Automated erythrocytes count in urine sediment (number/area)Ordered By: Pavel Elizondo on 01-19-2023 RBC Auto (Urine sed) [#/Area] 0-1 [HPF] 0-4 [facility] Automated leukocytes count i n urine sediment (number/area)Ordered By: Pavel Elizondo on 01-19-2023 WBC Auto (Urine sed) [#/Area] 0-1 [HPF] 0-4 [facility] Basophils Auto (Bld) [#/Vol] Ordered By: Pavel Elizondo on 01-19-2023 Basophils (Bld) [#/Vol] 0.1 10*3/uL 0.0-0.2 [facility] Basophils/100 WBC Auto (Bld) Ordered By: Pavel Elizondo on 01-19-2023 Basophils/100 WBC (Bld) 1.0 % . [facility] Bilirubin Test strip Ql (U)O rdered By: Pavel Elizondo on 01-19-2023 Bilirubin Ql (U) Negative Negative [facility] Bilirubin.total [Mass/volume ] in Serum or PlasmaOrdered By: Pavel Elizondo on 01-19-2023 Bilirubin [Mass/Vol] 0.6 mg/dL 0.3-1.0 [facility] Calcium [Mass/volume] in Ser um or PlasmaOrdered By: Pavel Elizondo on 01-19-2023 Calcium [Mass/Vol] 8.9 mg/dL 8.6-10.3 [facility] Carbon dioxide, total [Moles /volume] in Serum or PlasmaOrdered By: Pavel Elizondo on 12-09-2023 CO2 [Moles/Vol] 23.2 mmol/L 21.0-31.0 [facility] Chloride [Moles/volume] in S marbella or PlasmaOrdered By: Pavel Elizondo on 01-19-2023 Chloride [Moles/Vol] 102 mmol/L 98-107 [facility] Color Auto (U)Ordered By: Venktaesh Elizondo on 01-19-2023 Color (U) Yellow Yellow [facility] Creatinine [Mass/volume] in Serum or PlasmaOrdered By: Pavel Elizondo on 01-19-2023 Creatinine [Mass/Vol] 0.60 mg/dL 0.60-1.20 [facility] Eosinophils Auto (Bld) [#/Vo l]Ordered By: Pavel Elizondo on 01-19-2023 Eosinophils (Bld) [#/Vol] 0.1 10*3/uL 0.0-0.45 [facility] Eosinophils/100 WBC Auto (Bl d)Ordered By: Pavel Elizondo on 01-19-2023 Eosinophils/100 WBC (Bld) 0.9 % . [facility] Erythrocyte distribution wid th Auto (RBC) [Ratio]Ordered By: Pavel Elizondo on 01-19-2023 Erythrocyte distribution width (RBC) [Ratio] 13.2 % 11.9-15.3 [facility] Globulin Calc (S) [Mass/Vol] Ordered By: Pavel Elizondo on 01-19-2023 Globulin (S) [Mass/Vol] 3.7 g/dL [facility] Glucose [Mass/volume] in Ser um or PlasmaOrdered By: Pavel Elizondo on 01-19-2023 Glucose [Mass/Vol] 82 mg/dL 70-100 [facility] Comment on above: ADA recommended refe rence rangeRandom Glucose Reference Range is dependent on time and content of last meal. Glucose of more than 200 mg/dL in a nonstressed, ambulatory subject supports the diagnosis of Diabetes Mellitus. HCG ( test) IA.rapi d Ql (U)Ordered By: Pavel Elizondo on 01-19-2023 HCG ( test) Ql (U) Negative [facility] Hematocrit Auto (Bld) [Volum e fraction]Ordered By: Pavel Elizondo on 01-19-2023 Hematocrit (Bld) [Volume fraction] 40.5 % 34.0-46.4 [facility] Hemoglobin [Mass/volume] in BloodOrdered By: Pavel Elizondo on 01-19-2023 Hemoglobin (Bld) [Mass/Vol] 14.2 g/dL 11.8-15.4 [facility] Ketones Auto test strip (U) [Mass/Vol]Ordered By: Pavel Elizondo on 01-19-2023 Ketones (U) [Mass/Vol] Negative Negative [facility] - UrinalysisOrder ed By: Pavel Elizondo on 01-19-2023 Hyaline casts LM Ql (Urine sed) 0-8 [LPF] 0-8 [facility] Leukocytes [#/volume] correc jose for nucleated erythrocytes in Blood by Automated counOrdered By: Pavel Elizondo on 01-19-2023 WBC corrected for nucl RBC Auto (Bld) [#/Vol] 6.2 10*3/uL 3.8-11.6 [facility] Lipase [Enzymatic activity/v olume] in Serum or PlasmaOrdered By: Pavel Elizondo on 01-19-2023 Lipase [Catalytic activity/Vol] 53.0 U/L 11.0-82.0 [facility] Lymphocytes Auto (Bld) [#/Vo l]Ordered By: aPvel Elizondo on 01-19-2023 Lymphocytes (Bld) [#/Vol] 2.4 10*3/uL 1.00-4.8 [facility] Lymphocytes/100 WBC Auto (Bl d)Ordered By: Pavel Elizondo on 01-19-2023 Lymphocytes/100 WBC (Bld) 39.8 % . [facility] MCH Auto (RBC) [Entitic mass ]Ordered By: Pavel Elizondo on 01-19-2023 MCH (RBC) [Entitic mass] 34.3 pg 24.7-34.3 [facility] MCHC Auto (RBC) [Mass/Vol]Or dered By: Pavel Elizondo on 01-19-2023 MCHC (RBC) [Mass/Vol] 35.0 g/dL 32.0-35.0 [facility] MCV Auto (RBC) [Entitic vol] Ordered By: Pavel Elizondo on 01-19-2023 MCV (RBC) [Entitic vol] 97.9 fL 80-100 [facility] Monocyte distribution width [Entitic volume] in Blood by AutomatedOrdered By: Pavel Elizondo on 01-19-2023 Monocyte distribution width Auto (Bld) [Entitic vol] 14.57 % 0.00-20.00 [facility] Monocytes Auto (Bld) [#/Vol] Ordered By: Pavel Elizondo on 01-19-2023 Monocytes (Bld) [#/Vol] 0.3 10*3/uL 0.0-0.8 [facility] Monocytes/100 WBC Auto (Bld) Ordered By: Pavel Elizondo on 01-19-2023 Monocytes/100 WBC (Bld) 5.2 % . [facility] Neutrophils Auto (Bld) [#/Vo l]Ordered By: Pavel Elizondo on 01-19-2023 Neutrophils (Bld) [#/Vol] 3.3 10*3/uL 1.8-7.7 [facility] Neutrophils/100 WBC Auto (Bl d)Ordered By: Pavel Elizondo on 01-19-2023 Neutrophils/100 WBC (Bld) 53.1 % . [facility] Nitrite Test strip Ql (U)Ord ered By: Pavel Elizondo on 01-19-2023 Nitrite Ql (U) Negative Negative [facility] No Panel InformationOrdered By: Pavel Elizondo on 01-19-2023 Estimated GFR (CKD-EPI) > 60.0 mL/Min [facility] Creatinine Clearance (Chem 128.34 [facility] Nucleated erythrocytes [Pres ence] in Blood by Automated countOrdered By: Pavel Elizondo on 01-19-2023 Nucleated RBC Auto Ql (Bld) 0.2 /100{WBC} 0-0.5 [facility] Platelet mean volume Auto (B ld) [Entitic vol]Ordered By: Pavel Elizondo on 01-19-2023 Platelet mean volume (Bld) [Entitic vol] 7.6 fL 6.3-10.7 [facility] Platelets Auto (Bld) [#/Vol] Ordered By: Pavel Elizondo on 01-19-2023 Platelets (Bld) [#/Vol] 183 10*3/uL 150-450 [facility] Potassium [Moles/volume] in Serum or PlasmaOrdered By: Pavel Elizondo on 01-19-2023 Potassium [Moles/Vol] 3.8 mmol/L 3.5-5.1 [facility] Protein Auto test strip (U) [Mass/Vol]Ordered By: Pavel Elizondo on 01-19-2023 Protein (U) [Mass/Vol] Trace mg/dL Negative [facility] Protein [Mass/volume] in Ser um or PlasmaOrdered By: Pavel Elizondo on 01-19-2023 Protein [Mass/Vol] 8.1 g/dL 6.4-8.9 [facility] RBC Auto (Bld) [#/Vol]Ordere d By: Pavel Elizondo on 01-19-2023 RBC (Bld) [#/Vol] 4.13 10*6/uL 3.60-5.00 [facility] Serum or plasma albumin/glob ulin mass ratioOrdered By: Pavel Elizondo on 01-19-2023 Albumin/Globulin [Mass ratio] 1.2 {ratio} [facility] Serum or plasma anion gap de terminationOrdered By: Pavel Elizondo on 01-19-2023 Anion gap [Moles/Vol] 15.6 mmol/L 6.0-15.0 [facility] Sodium [Moles/volume] in Ser um or PlasmaOrdered By: Pavel Elizondo on 01-19-2023 Sodium [Moles/Vol] 137 mmol/L 136-145 [facility] Specific gravity Auto test s trip (U) [Rel density]Ordered By: Pavel Elizondo on 01-19-2023 Specific gravity (U) [Rel density] 1.025 1.001-1.030 [facility] Squamous epithelial cells de tection in urine sediment by light microscopyOrdered By: Pavel Elizondo on 01-19-2023 Epithelial cells.squamous LM Ql (Urine sed) 1-2 [HPF] 0-2 [facility] Urea nitrogen [Mass/volume] in Serum or PlasmaOrdered By: Pavel Elizondo on 01-19-2023 Urea nitrogen [Mass/Vol] 13 mg/dL 7-25 [facility] Urine bacteria detection by automated methodOrdered By: Pavel Elizondo on 01-19-2023 Bacteria Auto Ql (U) 1+ None Seen [facility] Urine clarity by refractomet ry automatedOrdered By: Pavel Elizondo on 01-19-2023 Clarity Refractometry automated (U) Clear Clear [facility] Urine glucose measurement by automated test strip (mass/volume)Ordered By: Pavel Elizondo on 01-19-2023 Glucose Auto test strip (U) [Mass/Vol] Normal mg/dL Normal [facility] Urine hemoglobin detection b y automated test stripOrdered By: Pavel Elizondo on 01-19-2023 Hemoglobin Auto test strip Ql (U) Negative Negative [facility] Urine leukocyte esterase det ection by automated test stripOrdered By: Pavel Elizondo on 01-19-2023 Leukocyte esterase Auto test strip Ql (U) Negative Negative [facility] Urobilinogen Auto test strip (U) [Mass/Vol]Ordered By: Pavel Elizondo on 01-19-2023 Urobilinogen (U) [Mass/Vol] Normal mg/dL Normal [facility] WBC Auto (Bld) [#/Vol]Ordere d By: Pavel Elizondo on 01-19-2023 WBC (Bld) [#/Vol] 6.2 10*3/uL 3.8-11.6 [facility] pH Auto test strip (U)Ordere d By: Pavel Elizondo on 01-19-2023 pH (U) 6.5 [pH] 5.0-9.0 [facility] Neurology Forms- Texton Neurology Forms- Text [id number]#1.00TIF F Normal [facility] EEGon 01-12-2023 EEG Normal [facility] Comment on above: Result Comment: Elec tronically Signed By: Anthony SINGLETARY, Francisco\.ella\Date and Time Signed: 01/12/23 08:10 EST Discharge Instructionson Discharge Instructions [id number]#1.00TI FF Normal [facility] Insurance Correspondence Off iceon 01-08-2023 Insurance Correspondence Office [id number]#1.00T IFF Normal [facility] Progress Note-Nurseon 2022 Progress Note-Nurse [id number]#1.00TI FF Normal [facility] Consent for Treatmenton 12-13 Consent for Treatment [id number]#1.00TI FF Normal [facility] Discharge Instructionson Discharge Instructions [id number]#1.00TI FF Normal [facility] ED Clinical Summaryon 2022 ED Clinical Summary Normal [facility] ED Note-Physicianon 01-08-20 ED Note-Physician [facility] Comment on above: Result Comment: Elec tronically Signed By: Megan AGUILAR, Darren SCharisma\.br\Date and Time Signed: 01/07/23 00:23 EST ED Patient Education Noteon 01-07-2023 ED Patient Education Note Normal [facility] ED Patient Summaryon 023 ED Patient Summary Normal [facility] Insurance Correspondence Off iceon 01-07-2023 Insurance Correspondence Office [id number]#1.00TI FF [facility] Pre-Arrival Noteon Pre-Arrival Note Normal [facility] BMPon 01-06-2023 Anion gap [Moles/Vol] 11 mmol/L Normal 6-16 [facility] Comment on above: Performed By: #### 2 [id number], [id number], [id number], 3468683, 3487558, 8156231 ####[facility] [address] [place] [address] Calcium [Mass/Vol] 8.6 mg/dL Low 8.9-11.1 [facility] Comment on above: Performed By: #### 2 984638, 80711149, 05628579, 3657393, 1124592, 4450322 ####[facility] [address] [place] [address] Chloride [Moles/Vol] 106 mmol/L Normal 101-111 [facility] Comment on above: Performed By: #### 2 904137, [id number], 94909610, 4443728, 7229785, 3650477 ####[facility] [address] [place] [address] CO2 [Moles/Vol] 21 mmol/L Normal 21-31 [facility] Comment on above: Performed By: #### 2 435868, 90913118, 23857465, 7968142, 9362317, 4538536 ####[facility] [address] [place] [address] Creatinine [Mass/Vol] 0.5 mg/dL Normal 0.5-1.3 [facility] Comment on above: Performed By: #### 2 624606, 60830790, 73992410, 3337880, 4169767, 4694151 ####[facility] [address] [place] [address] Glucose [Mass/Vol] 87 mg/dL Normal 55-199 [facility] Comment on above: Result Comment: If t his glucose result represents a fasting glucose, interpretation should refer to the following reference range: 55-99 mg/dL Performed By: #### 2 753788, [id number], 62113885, 3021920, 7966763, 2135008 ####[facility] [address] [place] [address] Potassium [Moles/Vol] 4.2 mmol/L Normal 3.5-5.3 [facility] Comment on above: Performed By: #### 2 356826, 30947658, 26333312, 4869211, 6317472, 8604993 ####[facility] [address] [place] [address] Sodium [Moles/Vol] 134 mmol/L Low 135-145 [facility] Comment on above: Performed By: #### 2 579557, 37838049, 55101774, 9501398, 5549696, 5542949 ####[facility] [address] [place] [address] Urea nitrogen [Mass/Vol] 11 mg/dL Normal 5-21 [facility] Comment on above: Performed By: #### 2 398969, 17307240, 99394754, 4523168, 3399588, 9494751 ####[facility] [address] [place] [address] Urea nitrogen/Creatinine [Mass ratio] 22 No Units High 10-20 [facility] Comment on above: Performed By: #### 2 329482, [id number], 68959217, 9235365, 2845166, 6348207 ####[facility] [address] [place] [address] CHEMISTRYOrdered By: SYSTEM SYSTEM on 01-06-2023 Albumin [Mass/Vol] 3.5 g/dL Normal 3.3 - 5.0 gm/dL [facility] [...] 129 mL/min/1.73 m2 Normal >=59mL/min/1 .73 m2 [facility] Comment on above: Interpretive Data: [...] Free T4 [Mass/Vol] 0.80 ng/dL Normal 0.58-1.64 [facility] Comment on above: Order Comment: Free T4 added by Discern Rule due to a TSH result of <0.34 or >5.60. Performed By: #### 2 814590, 37399089, 28673082, 6808435, 1611681, 7075755 ####[facility] [address] [place] [address] HEMATOLOGYOrdered By: Marlyn Villa on 01-06-2023 Platelets (Bld) [#/Vol] 116.0 E9/L Low 150.0 - 500.0 E9/L [facility] [place] HemeAutoSS Hep Func Panelon 01-06-2023 Albumin [Mass/Vol] 3.5 g/dL Normal 3.3-5.0 [facility] Comment on above: Performed By: #### 2 737813, 23969278, 17088247, 4397453, 1564000, 6152596 ####[address] [address] Albumin/Globulin (S) [Mass conc ratio] 1.0 Low 1.1-2.2 [facility] Comment on above: Performed By: #### 2 134279, 34723617, 57002484, 5637075, 3443905, 8563214 ####[address] [place] [id number] ALP [Catalytic activity/Vol] 86 Int._Unit/L Normal 21-98 [facility] Comment on above: Performed By: #### 2 171433, 17831393, 35050558, 6000658, 4668504, 4120535 ####[address] [place] [address] ALT No additional P-5'-P [Catalytic activity/Vol] 142 Int._Unit/L High 6-46 [facility] Comment on above: Performed By: #### 2 014731, 99857621, 25906977, 4504847, 7134132, 2702922 ####[facility] [address] [place] [address] AST [Catalytic activity/Vol] 239 Int._Unit/L High 5-43 [facility] Comment on above: Performed By: #### 2 182788, 03811492, 62286998, 7846152, 3705690, 9411397 ####[facility] [address] [place] [address] Bilirubin [Mass/Vol] 1.1 mg/dL Normal 0.0-1.1 [facility] Comment on above: Performed By: #### 2 363865, 08500267, 31425474, 6047026, 0554595, 4893775 ####[facility] [address] [place] [address] Bilirubin.direct [Mass/Vol] 0.3 mg/dL Normal 0.1-0.4 [facility] Comment on above: Performed By: #### 2 468877, 06806192, 65519212, 0204578, 1184142, 9117105 ####[address] [place] [id number] Bilirubin.indirect [Mass or moles/Vol] 0.8 mg/dL Normal 0.1-0.9 [facility] [facility] Comment on above: Performed By: #### 2 886512, 23876392, 27736771, 7336941, 5742300, 0758536 ####[address] [place] [address] Globulin (S) [Mass/Vol] 3.6 g/dL Normal 1.4-4.0 [facility] Comment on above: Performed By: #### 2 660234, 54325401, 48796154, 1175027, 3475924, 2906018 ####[address] [place] [address] Protein [Mass/Vol] 7.1 g/dL Normal 6.0-7.8 [facility] Comment on above: Performed By: #### 2 693105, 50203980, 82957933, 5185214, 2336372, 1910776 ####[address] [place] [address] Inpatient Clinical Summaryon 01-06-2023 Inpatient Clinical Summary Normal [facility] Inpatient Patient Summaryon 01-06-2023 Inpatient Patient Summary Normal [facility] Inpatient Patient Summary Normal [facility] Interdisciplinary Note - Alonso e Manageron 01-06-2023 Interdisciplinary Note - Landscape Photographer Per nursing and hospitalist. Mother will be transporting pt home at 230 today. LVM for mom. Pt denied rehab services. CRM spoke to mother and pt, mother is agreeable to taking pt into her custody and care. Ari RN witnessed conversation. Normal [facility] Comment on above: Result Comment: Elec tronically Signed By: Marlyn Echols\.br\Date and Time Signed: 01/06/23 14:35 EST Monitor Recordon 01-06-2023 Monitor Record [id number] [facility] [id number] FF Normal [facility] Monitor Record [id number] [facility] [id number] FF Normal [facility] Platelet Counton 01-06-2023 Platelets (Bld) [#/Vol] 116.0 E9/L Low 150.0-500.0 [facility] Comment on above: Performed By: #### 2 682683, 56258188, 41689904, 4675769, 8721451, 3750656 ####[facility] [address] [place] [address] Progress Note-Nurseon 2022 Progress Note-Nurse Normal [facility] Progress Note-Nurse Normal [facility] Progress Note-Physicianon Progress Note-Physician Normal [facility] Comment on above: Result Comment: Elec tronically Signed By: Awa BAUTISTA, Bekah Chatman\.br\Date and Time Signed: 01/06/23 07:04 EST\.br\Electronically Co-Signed By: Francisco Cruz MD\.br\Date and Time Co-Signed: 01/06/23 09:26 EST TSH With T4fr Reflexon 01-06 TSH Qn 5.89 m[IU]/L High 0.34-5.60 [facility] Comment on above: Performed By: #### 2 527277, 52197617, 50334543, 1601294, 4804327, 2321070 ####[facility] [address] [place] [address] eGFRon 01-06-2023 GFR/1.73 sq M.predicted among non-blacks MDRD (S/P/Bld) [Vol rate/Area] 129 mL/min/1.73 m2 Normal >=59 [facility] Comment on above: Order Comment: Order added by Discern Expert. Result Comment: Bead Picker justin kidney disease could be indicated at eGFR's of less than 60 mL/min/1.73m2. Kidney failure is indicated at less than 15 mL/min/1.73m2. Performed By: #### 2 430598, 32556491, 76482581, 8410033, 1080567, 4824288 ####[facility] [address] [place] [address] Auto Diffon 2023 Basophils/100 WBC (Bld) 1.3 % Normal 0.0-2.0 [facility] Comment on above: Order Comment: Order Added by Discern Expert. Performed By: #### 2 112681, 7365932, 47127001, 6235372, 0823776, 0139550, 4570376 ####[facility] [address] [place] [address] Basophils/Leukocytes Auto (Bld) [Pure # fraction] 0.1 E9/L Normal 0.0-0.2 [facility] Comment on above: Order Comment: Order Added by Discern Expert. Performed By: #### 2 521242, 4196969, 50319423, 1754242, 5365008, 0514621, 4156526 ####[facility] [address] [place] [address] Eosinophils/100 WBC (Bld) 1.8 % Normal 0.0-8.0 [facility] Comment on above: Order Comment: Order Added by Discern Expert. Performed By: #### 2 734931, 2914505, 49603051, 6567622, 4315213, 1275148, 6697611 ####[facility] [address] [place] [address] Eosinophils/Leukocyte s Auto (Bld) [Pure # fraction] 0.1 E9/L Normal 0.0-0.5 [facility] Comment on above: Order Comment: Order Added by Discern Expert. Performed By: #### 2 956765, 6091530, 79497442, 4540849, 0773997, 7423615, 2676190 ####[address] [place] [address] Lymphocytes/100 WBC (Bld) 46.8 % Normal 14.0-50.0 [facility] Comment on above: Order Comment: Order Added by Discern Expert. Performed By: #### 2 166349, 4364771, 35342578, 4785382, 3590179, 5289694, 5237809 ####[address] [address] Lymphocytes/Leukocyte s Auto (Bld) [Pure # fraction] 2.6 E9/L Normal 1.0-4.0 [facility] Comment on above: Order Comment: Order Added by Discern Expert. Performed By: #### 2 527072, 1368735, 66913033, 5793518, 7703417, 0213103, 4253044 ####[address] [place] [address] Monocytes/100 WBC (Bld) 5.4 % Normal 4.0-14.0 [facility] Comment on above: Order Comment: Order Added by Discern Expert. Performed By: #### 2 881348, 0793408, 56015780, 7770490, 8922818, 3067706, 4319596 ####[address] [place] [address] Monocytes/Leukocytes Auto (Bld) [Pure # fraction] 0.3 E9/L Normal 0.2-1.0 [facility] Comment on above: Order Comment: Order Added by Radha Expert. Performed By: #### 2 170503, 2485084, 22079497, 4221786, 3183252, 2411662, 2694073 ####[address] [place] [address] Neutrophils/100 WBC (Bld) 44.7 % Normal 36.0-75.0 [facility] Comment on above: Order Comment: Order Added by Discern Expert. Performed By: #### 2 250678, 3067842, 61730977, 9463239, 8427331, 9402918, 3791177 ####[address] [place] [address] Neutrophils/Leukocyte s Auto (Bld) [Pure # fraction] 2.5 E9/L Normal 2.0-7.5 [facility] Comment on above: Order Comment: Order Added by Discern Expert. Performed By: #### 2 518994, 4578432, 54942295, 4803769, 9307056, 0166242, 0830277 ####[address] [address] Basophils/100 WBC (Bld) 0.7 % Normal 0.0-2.0 [facility] Comment on above: Order Comment: Order Added by Discern Expert. Performed By: #### 2 876873, 11784392, 3760385, 5239308, 4975946, 15831199, 55845643 ####[address] [address] Basophils/Leukocytes Auto (Bld) [Pure # fraction] 0.1 E9/L Normal 0.0-0.2 [facility] Comment on above: Order Comment: Order Added by Discern Expert. Performed By: #### 2 166298, 18728555, 9352437, 7555748, 8124037, 20209824, 96190851 ####[address] [address] Eosinophils/100 WBC (Bld) 1.2 % Normal 0.0-8.0 [facility] Comment on above: Order Comment: Order Added by Discern Expert. Performed By: #### 2 875292, 40925281, 3203965, 2421508, 2981644, 54380326, 14742087 ####[address] [place] [address] Eosinophils/Leukocyte s Auto (Bld) [Pure # fraction] 0.1 E9/L Normal 0.0-0.5 [facility] Comment on above: Order Comment: Order Added by Discern Expert. Performed By: #### 2 607924, 19649008, 0139009, 2995802, 6793654, 28852160, 12325034 ####[address] [place] [address] Lymphocytes/100 WBC (Bld) 40.2 % Normal 14.0-50.0 [facility] Comment on above: Order Comment: Order Added by Discern Expert. Performed By: #### 2 005885, 40007892, 0826145, 9801007, 1320959, 66992666, 08344683 ####[address] [address] Lymphocytes/Leukocyte s Auto (Bld) [Pure # fraction] 4.1 E9/L High 1.0-4.0 [facility] Comment on above: Order Comment: Order Added by Discern Expert. Performed By: #### 2 242607, 93081059, 2754899, 8462887, 3977320, 38783919, 52490565 ####[address] [place] [address] Monocytes/100 WBC (Bld) 4.6 % Normal 4.0-14.0 [facility] Comment on above: Order Comment: Order Added by Discern Expert. Performed By: #### 2 797886, 81999887, 2900567, 8057635, 9829234, 01671320, 03637168 ####[address] [place] [address] Monocytes/Leukocytes Auto (Bld) [Pure # fraction] 0.5 E9/L Normal 0.2-1.0 [facility] Comment on above: Order Comment: Order Added by Discern Expert. Performed By: #### 2 696424, 83343655, 8072553, 9129940, 4188112, 86354896, 57817653 ####[facility] [address] [place] [address] Neutrophils/100 WBC (Bld) 53.3 % Normal 36.0-75.0 [facility] Comment on above: Order Comment: Order Added by Discern Expert. Performed By: #### 2 334314, 85298763, 1191620, 5510079, 8380576, 44949879, 19766609 ####[facility] [address] [place] [address] Neutrophils/Leukocyte s Auto (Bld) [Pure # fraction] 5.5 E9/L Normal 2.0-7.5 [facility] Comment on above: Order Comment: Order Added by Discern Expert. Performed By: #### 2 088143, 31697616, 5386556, 4646032, 3732926, 17877364, 98599034 ####[facility] [address] [place] [address] B hCG Qualon 2023 Beta HCG ( test) Ql Negative Normal [facility] Comment on above: Performed By: #### 2 3685271 ####[facility] [address] [place] [address] BMPon 2023 Creatinine [Mass/Vol] 0.7 mg/dL Normal 0.5-1.3 [facility] Comment on above: Performed By: #### 2 522581, 1239512, 34897152, 7974253, 1056648, 4241507, 0482847 ####[facility] [address] [place] [address] Urea nitrogen [Mass/Vol] 15 mg/dL Normal 5-21 [facility] Comment on above: Performed By: #### 2 896850, 1129609, 85311565, 1825295, 0105936, 5263629, 9323574 ####[facility] [address] [place] [address] Urea nitrogen/Creatinine [Mass ratio] 21 No Units High 10-20 [facility] Comment on above: Performed By: #### 2 075457, 2193933, 14145807, 0117128, 7812484, 4064508, 3896894 ####[facility] [address] [place] [address] Anion gap [Moles/Vol] 13 mmol/L Normal 6-16 [facility] Comment on above: Performed By: #### 2 032089, 4235616, 60343476, 9811967, 8926522, 5298701, 7158589 ####[facility] [address] [place] [address] Calcium [Mass/Vol] 8.3 mg/dL Low 8.9-11.1 [facility] Comment on above: Performed By: #### 2 542258, 6822696, 69050300, 5549024, 2131504, 5337447, 1090752 ####[facility] [address] [place] [address] Chloride [Moles/Vol] 107 mmol/L Normal 101-111 [facility] Comment on above: Performed By: #### 2 527370, 0042257, 98521176, 7285351, 1078461, 0759690, 0958522 ####[facility] [address] [place] [address] CO2 [Moles/Vol] 22 mmol/L Normal 21-31 [facility] Comment on above: Performed By: #### 2 177029, 2606544, 26818341, 3410293, 9699330, 1663314, 9085888 ####[facility] [address] [place] [address] Glucose [Mass/Vol] 93 mg/dL Normal 55-199 [facility] Comment on above: Result Comment: If t his glucose result represents a fasting glucose, interpretation should refer to the following reference range: 55-99 mg/dL Performed By: #### 2 990947, 4756921, 31272999, 5926345, 6216710, 1293660, 9872004 ####[facility] [address] [place] [address] Potassium [Moles/Vol] 3.8 mmol/L Normal 3.5-5.3 [facility] Comment on above: Performed By: #### 2 593277, 3780457, 75935725, 4532966, 3034718, 0311331, 3294826 ####[facility] [address] [place] [address] Sodium [Moles/Vol] 138 mmol/L Normal 135-145 [facility] Comment on above: Performed By: #### 2 813772, 0579998, 09311577, 2723883, 7208560, 4978600, 3799044 ####[facility] [address] [place] [address] Creatinine [Mass/Vol] 0.8 mg/dL Normal 0.5-1.3 [facility] Comment on above: Performed By: #### 2 457919, 48889451, 1992548, 4924197, 8537147, 52380758, 43438235 ####[facility] [address] [place] [address] Urea nitrogen [Mass/Vol] 13 mg/dL Normal 5-21 [facility] Comment on above: Performed By: #### 2 801870, 35252055, 7906104, 3899176, 0871990, 20437127, 57715601 ####[facility] [address] [place] [address] Urea nitrogen/Creatinine [Mass ratio] 16 No Units Normal 10-20 [facility] Comment on above: Performed By: #### 2 066641, 55457495, 4025807, 8799625, 4321430, 00802859, 48439124 ####[facility] [address] [place] [address] Anion gap [Moles/Vol] 13 mmol/L Normal 6-16 [facility] Comment on above: Performed By: #### 2 356664, 64313869, 8310556, 7093498, 3539745, 04013612, 38870385 ####[facility] [address] [place] [address] Calcium [Mass/Vol] 8.6 mg/dL Low 8.9-11.1 [facility] Comment on above: Performed By: #### 2 363653, 47059382, 1468764, 7490262, 5052068, 93642042, 67680852 ####[facility] [address] [place] [address] Chloride [Moles/Vol] 106 mmol/L Normal 101-111 [facility] Comment on above: Performed By: #### 2 410650, 25169781, 6387140, 8118021, 8454445, 42641354, 26750867 ####[facility] [address] [place] [address] CO2 [Moles/Vol] 23 mmol/L Normal 21-31 [facility] Comment on above: Performed By: #### 2 215264, 95114202, 6768111, 2563333, 6515870, 69513415, 14759832 ####[facility] [address] [place] [address] Glucose [Mass/Vol] 91 mg/dL Normal 55-199 [facility] Comment on above: Result Comment: If t his glucose result represents a fasting glucose, interpretation should refer to the following reference range: 55-99 mg/dL Performed By: #### 2 862784, 23474324, 1208519, 1775383, 0060285, 72900848, 81662644 ####[facility] [address] [place] [address] Potassium [Moles/Vol] 3.8 mmol/L Normal 3.5-5.3 [facility] Comment on above: Performed By: #### 2 303454, 24830003, 9117349, 4519317, 8663558, 23541893, 25521038 ####[facility] [address] [place] [address] Sodium [Moles/Vol] 138 mmol/L Normal 135-145 [facility] Comment on above: Performed By: #### 2 777246, 05531367, 5535812, 3706569, 6341788, 97642793, 12382469 ####[facility] [address] [place] [address] CBC w/ Auto Diffon 3 Erythrocyte distribution width (RBC) [Ratio] 12.8 % Normal 10.9-14.2 [facility] Comment on above: Performed By: #### 2 930004, 2407823, 51175841, 3570763, 3222418, 9315070, 7855534 ####[address] [place] [address] Hematocrit (Bld) [Volume fraction] 39.6 % Normal 34.0-46.0 [facility] Comment on above: Performed By: #### 2 913795, 6199606, 86853090, 6812394, 1635075, 7845305, 4180417 ####[facility] [address] [place] [address] Hemoglobin (Bld) [Mass/Vol] 13.7 g/dL Normal 12.0-16.0 [facility] Comment on above: Performed By: #### 2 172741, 3418046, 24353174, 0891330, 7831801, 1069533, 7397958 ####[facility] [address] [place] [address] MCH (RBC) [Entitic mass] 33.8 pg Normal 27.0-34.0 [facility] Comment on above: Performed By: #### 2 630873, 3533694, 89991779, 3487816, 4036778, 4935377, 1234976 ####[facility] [address] [place] [address] MCHC (RBC) [Mass/Vol] 34.5 g/dL Normal 31.4-36.0 [facility] Comment on above: Performed By: #### 2 461774, 3571192, 92976088, 1557511, 9018986, 7706010, 0447346 ####[facility] [address] [place] [address] MCV (RBC) [Entitic vol] 98.0 fL Normal 80.0-100.0 [facility] Comment on above: Performed By: #### 2 209894, 2241740, 31565322, 3715052, 9620806, 5326345, 2747027 ####[facility] [address] [place] [address] Platelet mean volume (Bld) [Entitic vol] 8.8 fL Normal 6.4-10.8 [facility] Comment on above: Performed By: #### 2 251641, 4841337, 11081456, 8174514, 9682573, 1505440, 6883571 ####[address] [address] Platelets (Bld) [#/Vol] 124.0 E9/L Low 150.0-500.0 [facility] Comment on above: Performed By: #### 2 236892, 9316900, 01886632, 4014773, 0113867, 9082162, 6485860 ####[address] [place] [address] RBC (Bld) [#/Vol] 4.0 E12/L Low 4.3-5.9 [facility] Comment on above: Performed By: #### 2 257997, 1546284, 68405974, 4019370, 2778616, 7876234, 2325671 ####[address] [place] [address] WBC corrected for nucl RBC Auto (Bld) [#/Vol] 5.6 E9/L Normal 4.0-11.0 [facility] Comment on above: Performed By: #### 2 622246, 8817886, 99388518, 0104592, 7843638, 4392163, 7332691 ####[facility] [address] [place] [address] Erythrocyte distribution width (RBC) [Ratio] 13.3 % Normal 10.9-14.2 [facility] Comment on above: Performed By: #### 2 198294, 15228731, 6111246, 7829445, 3888498, 17175696, 63800300 ####[address] [place] [address] Hematocrit (Bld) [Volume fraction] 44.7 % Normal 34.0-46.0 [facility] Comment on above: Performed By: #### 2 077670, 31048637, 3062030, 1687296, 4672140, 93862290, 66983595 ####[address] [place] [address] Hemoglobin (Bld) [Mass/Vol] 15.6 g/dL Normal 12.0-16.0 [facility] Comment on above: Performed By: #### 2 750195, 04653660, 4549565, 9998934, 6187355, 63449843, 99137458 ####[address] [place] [address] MCH (RBC) [Entitic mass] 34.3 pg High 27.0-34.0 [facility] Comment on above: Performed By: #### 2 590033, 70923059, 8813710, 0492785, 0452397, 66358493, 04566630 ####[facility] [address] [place] [address] MCHC (RBC) [Mass/Vol] 34.9 g/dL Normal 31.4-36.0 [facility] Comment on above: Performed By: #### 2 734940, 86406712, 9428172, 8273963, 5897806, 17771535, 47714281 ####[address] [address] MCV (RBC) [Entitic vol] 98.4 fL Normal 80.0-100.0 [facility] Comment on above: Performed By: #### 2 158592, 66056702, 9969176, 6064037, 8377920, 82449389, 77347429 ####[facility] [address] [place] [address] Platelet mean volume (Bld) [Entitic vol] 9.1 fL Normal 6.4-10.8 [facility] Comment on above: Performed By: #### 2 121201, 99457100, 6891370, 7853928, 4800635, 61751536, 12399286 ####[facility] [address] [place] [address] Platelets (Bld) [#/Vol] 197.0 E9/L Normal 150.0-500.0 [facility] Comment on above: Performed By: #### 2 854840, 86724728, 7355448, 6322743, 2397609, 22284470, 13666715 ####[facility] [address] [place] [address] RBC (Bld) [#/Vol] 4.5 E12/L Normal 4.3-5.9 [facility] Comment on above: Performed By: #### 2 899742, 12293649, 6753515, 9167877, 3867450, 59950825, 06001290 ####[facility] [address] [place] [address] WBC corrected for nucl RBC Auto (Bld) [#/Vol] 10.3 E9/L Normal 4.0-11.0 [facility] Comment on above: Performed By: #### 2 452345, 03489550, 6309305, 8099499, 9533813, 98628810, 74598891 ####[facility] [address] [place] [address] CHEMISTRYOrdered By: SYSTEM SYSTEM on 2023 Ethanol [...] to CARLOS MORSE AT ICU by ERNESTO RICE And Read Back For Confirmation at: 2023 10:13:51\Critical Result verified by repeat analysis GFR/1.73 sq M.predicted among non-blacks MDRD (S/P/Bld) [Vol rate/Area] 119 mL/min/1.73 m2 Normal >=59mL/min/1 .73 m2 FT Chem S Comment on above: Interpretive Data: [...] Result UD_BARB:POS Called to RODOLFO PAYTON AT by MANUEL [...] 101 mL/min/1.73 m2 Normal >=59mL/min/1 .73 m2 [facility] [place] Chem S Comment on above: Interpretive Data: [...] Sensitivity Troponin I Instructions For Use, Yvrose [place], September 2017) Urea nitrogen [Mass/Vol] 13 mg/dL Normal 5 - 21 mg/dL [facility] Remisol Urea nitrogen/Creatinine [Mass ratio] 16 mg/mg Normal 10 - 20 FT Remisol COAGULATIONOrdered By: Vivek Contreras on 2023 aPTT Coag (PPP) [Time] 35.2 s Normal 25.1 - 36.5 second(s) [facility] [place] Auto Coag Comment on above: Interpretive Data: [...] the same coagulation reagent and instrumentation as [facility] [place]. Currently there are no coagulation studies available [...] s High 9.4 - 1 2.5 second(s) [facility] [place] Auto Coag Comment on above: Interpretive Data: [...] the same coagulation reagent and instrumentation as [facility] [place]. Currently there are no coagulation studies available worldwide for children to 14 days, and no normal ranges. CT Head or Brain w/o Contras ton 2023 CT Head or Brain w/o Contrast Normal [facility] CT Spine Cervical w/o Contra ston 2023 CT Spine Cervical w/o Contrast Normal [facility] Consent for Treatmenton 12-13 Consent for Treatment [id number] FF Normal [facility] Consultation Noteon 01-06-20 Consultation Note Normal [facility] Comment on above: Result Comment: Elec tronically Signed By: Sekou Mi LPN, Lisa M\.br\Date and Time Signed: 01/05/23 07:45 EST\.br\Electronically Co-Signed By: Francisco Cruz MD\.br\Date and Time Co-Signed: 01/05/23 09:14 EST ED Clinical Summaryon 2022 ED Clinical Summary Normal [facility] ED Note-Physicianon 01-06-20 ED Note-Physician Normal [facility] Comment on above: Result Comment: Elec tronically Signed By: Kerry Linton DO\sri\Date and Time Signed: 01/05/23 04:23 EST ED Patient Education Noteon 2023 ED Patient Education Note Normal [facility] ED Patient Summaryon 023 ED Patient Summary Normal [facility] Ethanolon 2023 Ethanol [Mass/Vol] mg/dL Normal <=7 [facility] Comment on above: Performed By: #### 2 725153 ####[facility] [address] [place] [address] Ethanol [Mass/Vol] 83 mg/dL Abnormal <=7 [facility] Comment on above: Order Comment: Unsuc cessful attempts to collect labs, other phlebotomists notified. HH Result Comment: Crit ical Result S_ETOH:83.0 Called to CARLOS MORSE AT ICU by ERNESTO RICE And Read Back For Confirmation at: 2023 10:13:51\Critical Result verified by repeat analysis Performed By: #### 2 815735 ####[facility] [address] [place] [address] Ethanol [Mass/Vol] 266 mg/dL Abnormal <=7 [facility] Comment on above: Result Comment: Crit ical Result verified by repeat analysis\Critical Result S_ETOH:266.0 Called to RODOLFO PAYTON AT ER by MANUEL CONTRERAS And Read Back For Confirmation at: 2023 02:33:18 Performed By: #### 2 936996 ####[facility] [address] [place] [address] HEMATOLOGYOrdered By: SYSTEM SYSTEM on 2023 Basophils/100 [...] 98.4 fL Normal 80.0 - 100.0 fL [facility] [place] [place] HemeAuto[employer] Platelet mean volume (Bld) [Entitic vol] 9.1 fL Normal 6.4 - 10.8 fL [facility] [place] HemeAutoSS Platelets (Bld) [#/Vol] 197.0 E9/L Normal 150.0 - 500.0 E9/L [facility] [place] HemeAutoSS RBC (Bld) [#/Vol] 4.5 E12/L Normal 4.3 - 5.9 E12/L [facility] [place] HemeAutoSS WBC corrected for nucl RBC Auto (Bld) [#/Vol] 10.3 E9/L Normal 4.0 - 11.0 E9/L [facility] [place] HemeAutoSS Hep Func Panelon 2023 Albumin [Mass/Vol] 3.3 g/dL Normal 3.3-5.0 [facility] Comment on above: Performed By: #### 2 095194, 7139086, 00061946, 2570006, 4659099, 6459613, 3929625 ####[facility] [address] [place] [address] Albumin/Globulin (S) [Mass conc ratio] 1.0 Low 1.1-2.2 [facility] Comment on above: Performed By: #### 2 124321, 2888973, 82454892, 5530035, 5963765, 0744305, 3845208 ####[facility] [address] [place] [address] ALP [Catalytic activity/Vol] 86 Int._Unit/L Normal 21-98 [facility] Comment on above: Performed By: #### 2 780496, 1200529, 36532394, 1738103, 0217725, 6854772, 5870045 ####[facility] [address] [place] [address] ALT No additional P-5'-P [Catalytic activity/Vol] 145 Int._Unit/L High 6-46 [facility] Comment on above: Performed By: #### 2 779342, 0814873, 91836804, 9757399, 4369203, 4069024, 6455996 ####[facility] [address] [place] [address] AST [Catalytic activity/Vol] 298 Int._Unit/L High 5-43 [facility] Comment on above: Performed By: #### 2 187454, 2829461, 48156205, 0194035, 8175242, 3900425, 5557106 ####[facility] [address] [place] [address] Bilirubin [Mass/Vol] 0.4 mg/dL Normal 0.0-1.1 [facility] Comment on above: Performed By: #### 2 278958, 4032388, 78916217, 2957028, 6844365, 0428130, 7782739 ####[facility] [address] [place] [address] Bilirubin.direct [Mass/Vol] 0.2 mg/dL Normal 0.1-0.4 [facility] Comment on above: Performed By: #### 2 676696, 4753407, 44055689, 7330462, 1023418, 7553189, 0595175 ####[facility] [address] [place] [address] Bilirubin.indirect [Mass or moles/Vol] 0.2 mg/dL Normal 0.1-0.9 [facility] Comment on above: Performed By: #### 2 431600, 6131178, 22627330, 7984280, 6577278, 4924406, 1197699 ####[facility] [address] [place] [address] Globulin (S) [Mass/Vol] 3.4 g/dL Normal 1.4-4.0 [facility] Comment on above: Performed By: #### 2 158286, 5255585, 82064743, 7668325, 1309266, 7039987, 9210894 ####[facility] [address] [place] [address] Protein [Mass/Vol] 6.7 g/dL Normal 6.0-7.8 [facility] Comment on above: Performed By: #### 2 796686, 9006519, 72927887, 1070930, 8676346, 7400027, 5123144 ####[address] [place] [address] Albumin [Mass/Vol] 3.8 g/dL Normal 3.3-5.0 [facility] Comment on above: Performed By: #### 2 456920, 54333869, 8755029, 8183539, 4465717, 89125239, 13472685 ####[address] [place] [address] Albumin/Globulin (S) [Mass conc ratio] 0.9 Low 1.1-2.2 [facility] Comment on above: Performed By: #### 2 048118, 49629125, 0738209, 4862354, 3244582, 83708342, 00285360 ####[address] [address] ALP [Catalytic activity/Vol] 103 Int._Unit/L High 21-98 [facility] Comment on above: Performed By: #### 2 353884, 76405557, 0883549, 5493323, 2667090, 69700360, 69072659 ####[address] [address] ALT No additional P-5'-P [Catalytic activity/Vol] 159 Int._Unit/L High 6-46 [facility] Comment on above: Performed By: #### 2 031989, 11228109, 8969108, 4002213, 7362368, 57113914, 86426834 ####[address] [place] [address] AST [Catalytic activity/Vol] 337 Int._Unit/L High 5-43 [facility] Comment on above: Performed By: #### 2 928122, 29500397, 3143401, 7286076, 3915131, 53217415, 27331820 ####[address] [place] [address] Bilirubin [Mass/Vol] 0.3 mg/dL Normal 0.0-1.[address] [facility] Comment on above: Performed By: #### 2 328262, 06942627, 7326269, 0134021, 8405091, 31330221, 96331163 ####[address] [place] [address] Bilirubin.direct [Mass/Vol] 0.1 mg/dL Normal 0.1-0.4 [facility] Comment on above: Performed By: #### 2 091845, 96715196, 9282336, 2209173, 3897391, 51289168, 33271377 ####[facility] [address] [place] [address] Bilirubin.indirect [Mass or moles/Vol] 0.2 mg/dL Normal 0.1-0.9 [facility] Comment on above: Performed By: #### 2 500974, 79515308, 5179775, 0766050, 6445758, 30917617, 14170054 ####[facility] [address] [place] [address] Globulin (S) [Mass/Vol] 4.1 g/dL High 1.4-4.0 [facility] Comment on above: Performed By: #### 2 589019, 63030228, 4134163, 3364356, 0114714, 24391383, 96671162 ####[facility] [address] [place] [address] Protein [Mass/Vol] 7.9 g/dL High 6.0-7.8 [facility] Comment on above: Performed By: #### 2 914187, 29597398, 3571694, 8157933, 4180928, 16956887, 04776083 ####[facility] [address] [place] [address] Interdisciplinary Note - Alonso e Manageron 2023 Interdisciplinary Note - Landscape Photographer Normal [facility] Comment on above: Result Comment: Elec tronically Signed By: Katy Wood\.br\Date and Time Signed: 01/05/23 14:50 EST Magnesiumon 2023 Magnesium [Mass/Vol] 1.4 mg/dL Normal 1.3-2.[address] [facility] Comment on above: Performed By: #### 2 566528, 2267056, 86860083, 9478277, 5562119, 5356162, 9277771 ####[facility] [address] [place] [address] Monitor Recordon 2023 Monitor Record [id number] 1062 [id number]#1.00TI FF Normal [facility] Monitor Record [id number] 1062 [id number]#1.00TI FF Normal [facility] Monitor Record [id number] 1062 [id number]#1.00TI FF Normal [facility] Monitor Record [id number] 1062 [id number]#1.00TI FF Normal [facility] PT & PTTon 2023 aPTT Coag (PPP) [Time] 35.2 second(s) Normal 25.1-36.5 [facility] Comment on above: Result Comment: Para [...] the same coagulation reagent and instrumentation as [facility] [place]. Currently there are no coagulation studies available worldwide for children to 14 days, and no normal ranges. Heparin therapeutic range (represented by Anti-Factor Xa activity of 0.2 - 0.4 U/mL) corresponds to PTT of 56.6 - 109.0 sec. Performed By: #### 2 116535, 49686073, 0706273, 0387637, 0798832, 88592399, 54440439 ####[facility] [address] [place] [address] INR Coag (PPP) [Relative time] 1.2 {INR} Invalid Interpretation Code [facility] Comment on above: Result Comment: INR results are specifically intended to assess patients stabilized on long-term Anticoagulation therapy suggested INR?s ?Less Intensive Anticoagulation? 2.0 ? 3.0Conventional Range 3.0 ? 4.5 Performed By: #### 2 042720, 44386025, 9402428, 6649338, 1350744, 15223481, 65271129 ####[facility] [address] [place] [address] PT Coag (PPP) [Time] 13.6 second(s) High 9.4-12.5 [facility] Comment on above: Result Comment: 15 [...] the same coagulation reagent and instrumentation as [facility] [place]. Currently there are no coagulation studies available worldwide for children to 14 days, and no normal ranges. Performed By: #### 2 917627, 71142652, 4459486, 2570502, 5936918, 05276676, 20209764 ####[facility] [address] [place] [address] Phosphoruson 2023 Phosphate [Mass/Vol] 2.7 mg/dL Normal 1.9-4.6 [facility] Comment on above: Performed By: #### 2 954178, 9322586, 69295059, 1395017, 6095236, 6126964, 7644838 ####[facility] [address] [place] [address] Pre-Arrival Noteon 3 Pre-Arrival Note Normal [facility] RAD - Preliminary Cat Scan R eporton 2023 RAD - Preliminary Cat Scan Report [id number]#1.00TIF F Normal [facility] SEROLOGYOrdered By: Alejandra Contreras on 2023 Beta HCG ( test) Ql Negative (01/05/23 1:58 AM) Normal [facility] [place] Man Sero Troponin 0 Hr.on 2023 Troponin I.cardiac [Mass/Vol] 5.50 pg/mL Low 10.10-27.10 [facility] Comment on above: Result Comment: The 95% CI (Confidence Interval) PPV (Positive Predictive Value) for myocardial infarction in females is 38 pg/mL, in males 51 pg/mL. The results should be used in conjunction with clinical conditions of myocardial infarction.(Access High Sensitivity Troponin I Instructions For Use, Yvrose [place], September 2017) Performed By: #### 2 781550, 88151698, 2215933, 4956249, 3815264, 82521140, 40256074 ####[facility] [address] [place] [address] U Drug Screenon 2023 Barbiturates Screen Ql (U) Positive Abnormal Negative [facility] Comment on above: Result Comment: Crit ical Result verified by repeat analysis\No confirmation requested by Physican\Unconfirmed by alternate method\Critical Result UD_BARB:POS Called to [facility] AT ER by MANUEL CONTRERAS And Read Back For Confirmation at: 2023 03:46:52Negative Cutoff: <200 ng/mL Performed By: #### 2 326292 ####[facility] [address] [place] [address] Benzodiazepines Ql (U) Positive Abnormal Negative [facility] Comment on above: Result Comment: Crit ical Result verified by repeat analysis\No confirmation requested by Physican\Unconfirmed by alternate method\Critical Result UD_BENZ:POS Called to [facility] AT by MANUEL CONTRERAS And Read Back For Confirmation at: 2023 03:46:52Negative Cutoff: <200 ng/mL Performed By: #### 2 767893 ####[facility] [address] [place] [address] Amphetamines Screen method >1000 ng/mL Ql (U) Negative Normal Negative [facility] Comment on above: Result Comment: Nega tive Cutoff: <1000 ng/mL Performed By: #### 2 750791 ####[facility] [address] [place] [address] Cocaine Ql (U) Negative Normal Negative [facility] Comment on above: Result Comment: Nega tive Cutoff: <300 ng/mL Performed By: #### 2 096893 ####[facility] [address] [place] [address] Opiates Screen Ql (U) Negative Normal Negative [facility] Comment on above: Result Comment: Nega tive Cutoff: <300 ng/mL Performed By: #### 2 092170 ####[facility] [address] [place] [address] Phencyclidine Screen method >25 ng/mL Ql (U) Negative Normal Negative [facility] Comment on above: Result Comment: Nega tive Cutoff: <25 ng/mLThese drug screen results are to be used for medical (i.e., treatment) purposes only. Unconfirmed drug screening results must not be used for non-medical purposes (e.g., employment testing, legal testing). Performed By: #### 2 851935 ####[facility] [address] [place] [address] Tetrahydrocannabinol Screen method >50 ng/mL Ql (U) Negative Normal Negative [facility] Comment on above: Result Comment: Nega tive Cutoff: <50 ng/mL Performed By: #### 2 790541 ####[facility] [address] [place] [address] UA With Cult Reflexon 2022 Bacteria LM Ql (Urine sed) TRACE Normal Trace [facility] Comment on above: Performed By: #### 1 2670812 ####[facility] [address] [place] [address] Bilirubin Ql (U) Negative Normal Negative [facility] Comment on above: Performed By: #### 1 6491098 ####[address] [address] Clarity (U) CLEAR Normal Clear [facility] Comment on above: Performed By: #### 1 5890792 ####[address] [place] [address] Color (U) YELLOW Normal Yellow [facility] Comment on above: Performed By: #### 1 9943911 ####[address] [place] [address] Crystals LM Ql (Urine sed) Present Normal [facility] Comment on above: Performed By: #### 1 9793669 ####[facility] [address] [place] [address] Epithelial cells.squamous LM.HPF (Urine sed) [#/Area] 0-2 Normal 0-2 [facility] Comment on above: Performed By: #### 1 2038539 ####[facility] [address] [place] [address] Glucose Test strip (U) [Mass/Vol] Negative Normal Negative [facility] Comment on above: Performed By: #### 1 9937237 ####[facility] [address] [place] [address] Hemoglobin Ql (U) 1+ Abnormal Negative [facility] Comment on above: Performed By: #### 1 5327418 ####[facility] [address] [place] [address] Ketones (U) [Mass/Vol] Negative Normal Negative [facility] Comment on above: Performed By: #### 1 5184692 ####[facility] [address] [place] [address] [place].plasma/Lithiu m.RBC (Bld) [Mass ratio] 0-3 Normal 0-3 [facility] Comment on above: Performed By: #### 1 9266824 ####[address] [address] Mucus Ql (Urine sed) TRACE Normal [facility] Comment on above: Performed By: #### 1 6893978 ####[address] [address] Nitrite Ql (U) Negative Normal Negative [facility] Comment on above: Performed By: #### 1 2416465 ####[address] [address] pH (U) 6.5 [pH] Invalid Interpretation Code 5.0-9.0 [facility] Comment on above: Performed By: #### 1 3949037 ####[address] [address] Protein (U) [Mass/Vol] Negative Normal Negative [facility] Comment on above: Performed By: #### 1 4944647 ####[address] [address] Specific gravity (U) [Rel density] 1.020 Invalid Interpretation Code 1.005-1.030 [facility] Comment on above: Performed By: #### 1 7562093 ####[address] [address] Type of Urine collection method Clean Catch Normal [facility] Comment on above: Performed By: #### 1 0189082 ####[address] [address] Urobilinogen Qn (U) 0.2 {Surinder'U}/dL Normal 0.0-1.0 [facility] Comment on above: Performed By: #### 1 8831972 ####[facility] [address] [place] [address] WBC Auto Ql (U) Negative Normal Negative [facility] Comment on above: Performed By: #### 1 4050434 ####[facility] [address] [place] [address] WBC LM.HPF (Urine sed) [#/Area] 0-5 Normal 0-5 [facility] Comment on above: Performed By: #### 1 0770438 ####[facility] [address] [place] [address] URINALYSISOrdered By: Arlene Contreras on 2023 Bacteria [...] AM) Normal Negative [facility] UA Auto SS [place].plasma/Lithiu m.RBC (Bld) [Mass ratio] 0-3 /HPF Normal 0-3/HPF [facility] UA Auto SS Mucus Ql (Urine sed) Trace (01/05/23 3:02 AM) Normal [facility] UA Auto SS Nitrite Ql (U) Negative (01/05/23 3:02 AM) Normal Negative [facility] UA Auto SS pH (U) 6.5 *NA* (01/05/23 3:02 AM) Invalid Interpretation Code 5.0 - 9.0 [facility] [place] UA Auto SS Protein (U) [Mass/Vol] Negative (01/05/23 3:02 AM) Normal Negative [facility] [place] UA Auto SS Specific gravity (U) [Rel density] 1.020 *NA* (01/05/23 3:02 AM) Invalid Interpretation Code 1.005 - 1.030 [facility] [place] UA Auto SS UA Spec Desc Clean Catch (01/05/23 3:02 AM) Normal [facility] [place] UA Auto SS Urobilinogen Qn (U) 0.7896284 {Surinder'U}/dL Normal 0.0 - 1.0 EU/dL [facility] [place] UA Auto SS WBC Auto Ql (U) Negative (01/05/23 3:02 AM) Normal Negative [facility] [place] UA Auto SS WBC LM.HPF (Urine sed) [#/Area] 0-5 /HPF Normal 0-5/HPF [facility] [place] UA Auto SS XR Chest Single Viewon 01-05 XR Chest Single View Normal [facility] XR Knee Complete 4+ Views Le fton 2023 XR Knee Complete 4+ Views Left Normal [facility] eGFRon 2023 GFR/1.73 sq M.predicted among non-blacks MDRD (S/P/Bld) [Vol rate/Area] 119 mL/min/1.73 m2 Normal >=59 [facility] Comment on above: Order Comment: Order added by Discern Expert. Result Comment: Bead Picker justin kidney disease could be indicated at eGFR's of less than 60 mL/min/1.73m2. Kidney failure is indicated at less than 15 mL/min/1.73m2. Performed By: #### 2 372253, 2245658, 40579347, 5854054, 8249801, 2555621, 8242585 ####[facility] [address] [place] [address] GFR/1.73 sq M.predicted among non-blacks MDRD (S/P/Bld) [Vol rate/Area] 101 mL/min/1.73 m2 Normal >=59 [facility] Comment on above: Order Comment: Order added by Discern Expert. Result Comment: Bead Picker justin kidney disease could be indicated at eGFR's of less than 60 mL/min/1.73m2. Kidney failure is indicated at less than 15 mL/min/1.73m2. Performed By: #### 2 530209, 60172024, 6099367, 4620971, 0544640, 67594658, 34981824 ####[facility] [address] [place] [address] Auto Diffon 01-02-2023 Basophils/100 WBC (Bld) 0.7 % Normal 0.0-2.0 [facility] Comment on above: Order Comment: Order Added by Discern Expert. Performed By: #### 2 662389, 42920355, 7026168, 2707534, 7870612, 53299943, 02527264 ####[address] [place] [address] Basophils/Leukocytes Auto (Bld) [Pure # fraction] 0.1 E9/L Normal 0.0-0.2 [facility] Comment on above: Order Comment: Order Added by Discern Expert. Performed By: #### 2 194796, 86226838, 3405756, 7731233, 3231646, 64520648, 98017450 ####[address] [address] Eosinophils/100 WBC (Bld) 1.3 % Normal 0.0-8.0 [facility] Comment on above: Order Comment: Order Added by Discern Expert. Performed By: #### 2 902438, 34878180, 8761829, 7078774, 3409981, 85039136, 31373278 ####[address] [place] [address] Eosinophils/Leukocyte s Auto (Bld) [Pure # fraction] 0.1 E9/L Normal 0.0-0.5 [facility] Comment on above: Order Comment: Order Added by Discern Expert. Performed By: #### 2 225720, 29829102, 1526635, 6439582, 8579357, 14023725, 76829133 ####[address] [place] [address] Lymphocytes/100 WBC (Bld) 55.8 % High 14.0-50.0 [facility] Comment on above: Order Comment: Order Added by Discern Expert. Performed By: #### 2 614912, 91662156, 8143114, 4386242, 7543058, 81107572, 27118636 ####[facility] [address] [place] [address] Lymphocytes/Leukocyte s Auto (Bld) [Pure # fraction] 4.5 E9/L High 1.0-4.0 [facility] Comment on above: Order Comment: Order Added by Discern Expert. Performed By: #### 2 437354, 97805877, 7898166, 4468545, 2646148, 42875656, 86726173 ####[address] [address] Monocytes/100 WBC (Bld) 3.8 % Low 4.0-14.0 [facility] Comment on above: Order Comment: Order Added by Discern Expert. Performed By: #### 2 571041, 09294571, 1739961, 5659175, 8930573, 92470949, 71410776 ####[address] [address] Monocytes/Leukocytes Auto (Bld) [Pure # fraction] 0.3 E9/L Normal 0.2-1.0 [facility] Comment on above: Order Comment: Order Added by Discern Expert. Performed By: #### 2 950486, 58896224, 5375487, 4615730, 3280168, 36720883, 31437339 ####[address] [place] [address] Neutrophils/100 WBC (Bld) 38.4 % Normal 36.0-75.0 [facility] Comment on above: Order Comment: Order Added by Radha Expert. Performed By: #### 2 795584, 75796548, 7255976, 8157675, 8534003, 03264471, 11160216 ####[address] [place] [address] Neutrophils/Leukocyte s Auto (Bld) [Pure # fraction] 3.1 E9/L Normal 2.0-7.5 [facility] Comment on above: Order Comment: Order Added by Discern Expert. Performed By: #### 2 672726, 93435112, 6287104, 4384397, 0554439, 26337226, 87177195 ####[facility] [address] [place] [address] BMPon 01-02-2023 Creatinine [Mass/Vol] 0.5 mg/dL Normal 0.5-1.3 [facility] Comment on above: Performed By: #### 2 219340, 10768667, 1609336, 2050650, 4525554, 13158040, 17458832 ####[facility] [address] [place] [address] Urea nitrogen [Mass/Vol] 8 mg/dL Normal 5-21 [facility] Comment on above: Performed By: #### 2 313027, 53553195, 7428003, 1161300, 6419785, 42256640, 81169529 ####[facility] [address] [place] [address] Urea nitrogen/Creatinine [Mass ratio] 16 No Units Normal 10-20 [facility] Comment on above: Performed By: #### 2 317231, 56350041, 6395152, 9767826, 8660008, 40118094, 49753535 ####[facility] [address] [place] [address] Anion gap [Moles/Vol] 11 mmol/L Normal 6-16 [facility] Comment on above: Performed By: #### 2 870889, 62792409, 9574887, 0445973, 1307397, 70463141, 57439190 ####[facility] [address] [place] [address] Calcium [Mass/Vol] 8.3 mg/dL Low 8.9-11.1 [facility] Comment on above: Performed By: #### 2 131482, 03630090, 6365523, 0395882, 6919187, 43460720, 80902750 ####[facility] [address] [place] [address] Chloride [Moles/Vol] 109 mmol/L Normal 101-111 [facility] Comment on above: Performed By: #### 2 031890, 89635630, 7679068, 0139344, 1939955, 12442242, 11621017 ####[facility] [address] [place] [address] CO2 [Moles/Vol] 25 mmol/L Normal 21-31 [facility] Comment on above: Performed By: #### 2 545407, 64158523, 7216100, 6162716, 1162622, 20873202, 61296120 ####[facility] [address] [place] [address] Glucose [Mass/Vol] 84 mg/dL Normal 55-199 [facility] Comment on above: Result Comment: If t his glucose result represents a fasting glucose, interpretation should refer to the following reference range: 55-99 mg/dL Performed By: #### 2 254616, 53915579, 0897153, 1277537, 8590600, 49006860, 96118326 ####[facility] [address] [place] [address] Potassium [Moles/Vol] 3.8 mmol/L Normal 3.5-5.3 [facility] Comment on above: Performed By: #### 2 109102, 23217339, 2025513, 1826012, 7719964, 10225033, 90579189 ####[facility] [address] [place] [address] Sodium [Moles/Vol] 141 mmol/L Normal 135-145 [facility] Comment on above: Performed By: #### 2 440744, 99309299, 8577238, 8849135, 2202586, 03328894, 41934547 ####[facility] [address] [place] [address] CBC w/ Auto Diffon 3 Erythrocyte distribution width (RBC) [Ratio] 13.3 % Normal 10.9-14.2 [facility] Comment on above: Performed By: #### 2 936854, 42996870, 3558602, 2220992, 0560152, 81039751, 93330498 ####[address] [place] [address] Hematocrit (Bld) [Volume fraction] 43.4 % Normal 34.0-46.0 [facility] Comment on above: Performed By: #### 2 151593, 26963483, 8872227, 6433966, 8415455, 98127999, 42134820 ####[address] [place] [address] Hemoglobin (Bld) [Mass/Vol] 14.5 g/dL Normal 12.0-16.0 [facility] Comment on above: Performed By: #### 2 529395, 21973831, 9807164, 7233819, 3697236, 22538824, 55723404 ####[address] [address] MCH (RBC) [Entitic mass] 33.3 pg Normal 27.0-34.0 [facility] Comment on above: Performed By: #### 2 878435, 28612868, 1548404, 7716020, 9546014, 16454560, 86347446 ####[address] [place] [address] MCHC (RBC) [Mass/Vol] 33.4 g/dL Normal 31.4-36.0 [facility] Comment on above: Performed By: #### 2 983145, 02048828, 9043176, 8338030, 8779740, 73142101, 43427553 ####[address] [address] MCV (RBC) [Entitic vol] 99.6 fL Normal 80.0-100.0 [facility] Comment on above: Performed By: #### 2 830871, 83587375, 9048047, 4613567, 9474609, 88452235, 62609997 ####[facility] [address] [place] [address] Platelet mean volume (Bld) [Entitic vol] 8.4 fL Normal 6.4-10.8 [facility] Comment on above: Performed By: #### 2 842569, 21090239, 6370047, 1304705, 1747346, 83724008, 22943646 ####[address] [place] [address] Platelets (Bld) [#/Vol] 204.0 E9/L Normal 150.0-500.0 [facility] Comment on above: Performed By: #### 2 577809, 59825041, 5509266, 5313526, 5496730, 41875273, 10419765 ####[address] [place] [address] RBC (Bld) [#/Vol] 4.4 E12/L Normal 4.3-5.9 [facility] Comment on above: Performed By: #### 2 847225, 59548324, 2630133, 4429847, 4318540, 65087340, 41362994 ####[address] [place] [address] WBC corrected for nucl RBC Auto (Bld) [#/Vol] 8.0 E9/L Normal 4.0-11.0 [facility] Comment on above: Performed By: #### 2 478039, 86926777, 5856853, 1769194, 3182916, 07413520, 59090955 ####[address] [place] [address] CHEMISTRYOrdered By: SYSTEM SYSTEM on 01-02-2023 Anion [...] 129 mL/min/1.73 m2 Normal >=59mL/min/1 .73 m2 [facility] Chem S Comment on above: Interpretive Data: C hronic kidney disease could be indicated at eGFR's of less than 60 mL/min/1.73m2. Kidney failure is indicated at less than 15 mL/min/1.73m2. Glucose [Mass/Vol] 84 mg/dL Normal 55 - 199 mg/dL [facility] Comment on above: Interpretive Data: I f this glucose result represents a fasting glucose, interpretation should refer to the following reference range: 55-99 mg/dL Magnesium [Mass/Vol] 1.9 mg/dL Normal 1.3 - 2 .4 mg/dL [facility] Remisol Potassium [Moles/Vol] 3.8 mmol/L [...] Sensitivity Troponin I Instructions For Use, Yvrose Robbinston, September 2017) Urea nitrogen [Mass/Vol] 8 mg/dL Normal 5 - 21 mg/dL [facility] [place] Remisol Urea nitrogen/Creatinine [Mass ratio] 16 mg/mg Normal 10 - 20 [facility] [place] [facility] COAGULATIONOrdered By: Sixto Coleman on 01-02-2023 aPTT Coag (PPP) [Time] 34.5 s Normal 25.1 - 36.5 second(s) [facility] [place] Auto Coag Comment on above: Interpretive Data: [...] the same coagulation reagent and instrumentation as [facility] [place]. Currently there are no coagulation studies available worldwide for children to 14 days, and no normal ranges. Heparin therapeutic range (represented by Anti-Factor Xa activity of 0.2 - 0.4 U/mL) corresponds to PTT of 56.6 - 109.0 sec. INR Coag (PPP) [Relative time] 1.1 {INR} Invalid Interpretation Code [facility] [place] Auto Coag Comment on above: Interpretive Data: I NR results are specifically intended to assess patients stabilized on long-term Anticoagulation therapy suggested INR s Less Intensive Anticoagulation 2.0 3.0 Conventional Range 3.0 4.5 PT Coag (PPP) [Time] 12.2 s Normal 9.4 - 1 2.5 second(s) [facility] [place] Auto Coag Comment on above: Interpretive Data: [...] the same coagulation reagent and instrumentation as [facility] [place]. Currently there are no coagulation studies available worldwide for children to 14 days, and no normal ranges. Consent for Treatmenton 12-13 Consent for Treatment [id number]#[id number] FF Normal [facility] Discharge Instructionson Discharge Instructions [id number]#[id number] FF Normal [facility] ED Clinical Summaryon 2022 ED Clinical Summary Normal [facility] ED Note-Physicianon 01-03-20 23 ED Note-Physician Normal [facility] Comment on above: Result Comment: Elec tronically Signed By: Darren Guzman DO\.br\Date and Time Signed: 01/02/23 02:02 EST ED Patient Education Noteon 01-02-2023 ED Patient Education Note Normal [facility] ED Patient Summaryon 023 ED Patient Summary Normal [facility] Ethanolon 01-02-2023 Ethanol [Mass/Vol] 359 mg/dL Abnormal <=7 [facility] Comment on above: Result Comment: Crit ical Result verified by repeat analysis\Critical Result S_ETOH:359.0 Called to [facility] AT ER by SIXTO COLEMAN And Read Back For Confirmation at: 01/02/2023 01:49:19 Performed By: #### 2 150103 ####[facility] [address] [place] [address] HEMATOLOGYOrdered By: SYSTEM SYSTEM on 01-02-2023 Basophils/100 WBC (Bld) 0.7 % Normal 0.0 - 2.0 % [facility] HemeAutoSS Basophils/Leukocytes Auto (Bld) [Pure # fraction] [...] 204.0 E9/L Normal 150.0 - 500.0 E9/L [facility] [place] HemeAutoSS RBC (Bld) [#/Vol] 4.4 E12/L Normal 4.3 - 5.9 E12/L [facility] HemeAutoSS WBC corrected for nucl RBC Auto (Bld) [#/Vol] 8.0 E9/L Normal 4.0 - 11.0 E9/L [facility] [facility] HemeAutoSS Magnesiumon 01-02-2023 Magnesium [Mass/Vol] 1.9 mg/dL Normal 1.3-2.4 [facility] Comment on above: Performed By: #### 2 213687, 42987454, 0532012, 8150493, 8119268, 10229317, 75659482 ####[facility] [address] [place] [address] PT & PTTon 01-02-2023 aPTT Coag (PPP) [Time] 34.5 second(s) Normal 25.1-36.5 [facility] Comment on above: Result Comment: Para [...] the same coagulation reagent and instrumentation as [facility] [place]. Currently there are no coagulation studies available worldwide for children to 14 days, and no normal ranges. Heparin therapeutic range (represented by Anti-Factor Xa activity of 0.2 - 0.4 U/mL) corresponds to PTT of 56.6 - 109.0 sec. Performed By: #### 2 435468, 57015151, 2046801, 2700550, 4649453, 20542360, 03736476 ####[facility] [address] [place] [address] INR Coag (PPP) [Relative time] 1.1 {INR} Invalid Interpretation Code [facility] Comment on above: Result Comment: INR results are specifically intended to assess patients stabilized on long-term Anticoagulation therapy suggested INR?s ?Less Intensive Anticoagulation? 2.0 ? 3.0Conventional Range 3.0 ? 4.5 Performed By: #### 2 895718, 85797506, 6904175, 2967735, 6510689, 10544394, 21624231 ####[facility] [address] [place] [address] PT Coag (PPP) [Time] 12.2 second(s) Normal 9.4-12.5 [facility] Comment on above: Result Comment: 15 [...] the same coagulation reagent and instrumentation as [facility]. Currently there are no coagulation studies available worldwide for children to 14 days, and no normal ranges. Performed By: #### 2 679302, 17244665, 0752694, 2687925, 9803722, 55256492, 20157565 ####[facility] [address] [place] [address] Pre-Arrival Noteon Pre-Arrival Note Normal [facility] Pre-Arrival Note Normal [facility] Troponin 0 Hr.on 01-02-2023 Troponin I.cardiac [Mass/Vol] 4.90 pg/mL Low 10.10-27.10 [facility] Comment on above: Result Comment: The 95% CI (Confidence Interval) PPV (Positive Predictive Value) for myocardial infarction in females is 38 pg/mL, in males 51 pg/mL. The results should be used in conjunction with clinical conditions of myocardial infarction.(Access High Sensitivity Troponin I Instructions For Use, Yvrose Robbinston, September 2017) Performed By: #### 2 906455, 07548969, 3672781, 2448343, 0095933, 39934522, 80347159 ####[facility] [address] [place] [address] XR Chest Single Viewon 01-02 XR Chest Single View Normal [facility] eGFRon 01-02-2023 GFR/1.73 sq M.predicted among non-blacks MDRD (S/P/Bld) [Vol rate/Area] 129 mL/min/1.73 m2 Normal >=59 [facility] Comment on above: Order Comment: Order added by Discern Expert. Result Comment: Bead Picker justin kidney disease could be indicated at eGFR's of less than 60 mL/min/1.73m2. Kidney failure is indicated at less than 15 mL/min/1.73m2. Performed By: #### 2 509646, 96732200, 7776953, 9130904, 3842833, 43553479, 02270040 ####[facility] [address] [place] [address] SARS coronavirus 2 RNAon SARS-CoV-2 (COVID-19) RNA MOISES+probe Ql (Resp) Not detected Normal Not Detected [facility] Comment on above: Order Comment: [...] and has been validated for use at [facility]. Negative results do not preclude COVID-19 infections and should not be used as the sole basis for diagnosis, treatment, or other management decisions. Performed By: #### 2 4323-8 #### CARLTON Barragan ([id number]) [facility] ([facility]) [address] [place] [address] SARS-CoV-2 (COVID-19) RNA NA A+probe Ql (Resp)on 12-16-2022 Interpretation and review of laboratory results Normal [facility] This assay has recei laquita FDA [...] and has been validated for use at [facility]. Negative results do not preclude COVID-19 infections and should not be used as the sole basis for diagnosis, treatment, or other management decisions. [facility] Sars-CoV-2 PCR, Screen Asymp tomaticon 12-16-2022 SARS-CoV-2 (COVID-19) RNA MOISES+probe Ql (Resp) Not detected Not Detected [facility] ACUTE TOXICOLOGY PANEL, BLOO Don 12-15-2022 Acetaminophen [Mass/Vol] ug/mL Normal 10.0-30.0 [facility] Comment on above: Performed By: #### D RUBL #### CARLTON Barragan ([id number]) [facility] ([facility]) [address] [place] [address] Ethanol [Mass/Vol] mg/dL Normal <=10 [facility] Comment on above: Performed By: #### D RUBL #### CARLTON Barragan ([id number]) [facility] ([facility]) [address] [place] [address] Salicylates [Mass/Vol] mg/dL Normal 4-20 [facility] Comment on above: Performed By: #### D RUBL #### CARLTON Barragan ([id number]) [facility] ([facility]) [address] [place] [address] CBC W Auto Differential pane l (Bld)on 12-15-2022 Basophils (Bld) [#/Vol] 0.02 x10*3/uL Normal 0.00-0.10 [facility] Comment on above: Result Comment: Auto mated WBC differential has been confirmed by manual smear. Performed By: #### 2 4323-8 #### CARLTON Barragan ([id number]) [facility] ([facility]) [address] [place] [address] Basophils/100 WBC (Bld) 0.3 % Normal 0.0-2.0 [facility] Comment on above: Performed By: #### 2 432-8 #### CARLTON Barragan ([id number]) [facility] ([facility]) [address] [place] [address] Eosinophils (Bld) [#/Vol] 0.08 x10*3/uL Normal 0.00-0.70 [facility] Comment on above: Performed By: #### 2 4323-8 #### CARLTON Barragan ([id number]) [facility] ([facility]) [address] [place] [address] Eosinophils/100 WBC (Bld) 1.4 % Normal 0.0-6.0 [facility] Comment on above: Performed By: #### 2 4323-8 #### CARLTON Barragan ([id number]) [facility] ([facility]) [address] [place] [address] Erythrocyte distribution width (RBC) [Ratio] 12.4 % Normal 11.5-14.5 [facility] Comment on above: Performed By: #### 2 4323-8 #### CARLTON Barragan ([id number]) [facility] ([facility]) [address] [place] [address] Hematocrit (Bld) [Volume fraction] 39.4 % Normal 36.0-46.0 [facility] Comment on above: Performed By: #### 2 4323-8 #### CARLTON Barragan ([id number]) [facility] ([facility]) [address] [place] [address] Hemoglobin (Bld) [Mass/Vol] 13.8 g/dL Normal 12.0-16.0 [facility] Comment on above: Performed By: #### 2 4323-8 #### CARLTON Barragan ([id number]) [facility] ([facility]) [address] [place] [address] Immature granulocytes (Bld) [#/Vol] 0.02 x10*3/uL Normal 0.00-0.70 [facility] Comment on above: Performed By: #### 2 4323-8 #### CARLTON Barragan ([id number]) [facility] ([facility]) [address] [place] [address] Immature granulocytes/100 WBC (Bld) 0.3 % Normal 0.0-0.9 [facility] Comment on above: Result Comment: Jennifer ture Granulocyte Count (IG) includes promyelocytes, myelocytes and metamyelocytes but does not include bands. Percent differential counts (%) should be interpreted in the context of the absolute cell counts (cells/UL). Performed By: #### 2 4323-8 #### CARLTON Barragan ([id number]) [facility] ([facility]) [address] [place] [address] Lymphocytes (Bld) [#/Vol] 1.92 x10*3/uL Normal 1.20-4.80 [facility] Comment on above: Performed By: #### 2 4323-8 #### CARLTON Barragan ([id number]) [facility] ([facility]) [address] [place] [address] Lymphocytes/100 WBC (Bld) 32.6 % Normal 13.0-44.0 [facility] Comment on above: Performed By: #### 2 4323-8 #### CARLTON Barragan ([id number]) [facility] ([facility]) [address] [place] [address] MCH (RBC) [Entitic mass] 34.4 pg High 26.0-34.0 [facility] Comment on above: Performed By: #### 2 4323-8 #### CARLTON Barragan ([id number]) [facility] ([facility]) [address] [place] [address] MCHC (RBC) [Mass/Vol] 35.0 g/dL Normal 32.0-36.0 [facility] Comment on above: Performed By: #### 2 432-8 #### CARLTON Barragan ([id number]) [facility] ([facility]) [address] [place] [address] 10568 MCV (RBC) [Entitic vol] 98 fL Normal 80-100 [facility] Comment on above: Performed By: #### 2 432-8 #### CARLTON Barragan ([id number]) [facility] ([facility]) [address] [place] [address] Monocytes (Bld) [#/Vol] 0.22 x10*3/uL Normal 0.10-1.00 [facility] Comment on above: Performed By: #### 2 432-8 #### CARLTON Barragan ([id number]) [facility] ([facility]) [address] [place] [address] 23782 Monocytes/100 WBC (Bld) 3.7 % Normal 2.0-10.0 [facility] Comment on above: Performed By: #### 2 4323-8 #### CARLTON Barragan ([id number]) [facility] ([facility]) [address] [place] [address] Neutrophils (Bld) [#/Vol] 3.63 x10*3/uL Normal 1.20-7.70 [facility] Comment on above: Result Comment: Perc ent differential counts (%) should be interpreted in the context of the absolute cell counts (cells/uL). Performed By: #### 2 4323-8 #### CARLTON Barragan ([id number]) [facility] ([facility]) [address] [place] [address]387 Neutrophils/100 WBC (Bld) 61.7 % Normal 40.0-80.0 [facility] Comment on above: Performed By: #### 2 4323-8 #### CARLTON Barragan ([id number]) [facility] ([facility]) [address] [place] [address] Nucleated RBC/100 WBC (Bld) [Ratio] 0.0 /100 WBCs Normal 0.0-0.0 [facility] Comment on above: Performed By: #### 2 4323-8 #### CARLTON Barragan ([id number]) [facility] ([facility]) [address] [place] [address] Platelets (Bld) [#/Vol] 89 x10*3/uL Low 150-450 [facility] Comment on above: Result Comment: Plat elet count verified by smear review. Performed By: #### 2 4323-8 #### CARLTON Barragan ([id number]) [facility] ([facility]) [address] [place] [address] RBC (Bld) [#/Vol] 4.01 x10*6/uL Normal 4.00-5.20 [facility] Comment on above: Performed By: #### 2 4323-8 #### CARLTON Barragan ([id number]) [facility] ([facility]) [address] [place] [address] WBC (Bld) [#/Vol] 5.9 x10*3/uL Normal 4.4-11.3 [facility] Comment on above: Performed By: #### 2 4323-8 #### CARLTON Barragan ([id number]) [facility] ([facility]) [address] [place], [place] [address] Comprehensive metabolic 2000 panelon 12-15-2022 Albumin BCP dye [Mass/Vol] 4.3 g/dL Normal 3.4-5.0 [facility] Comment on above: Performed By: #### 2 4323-8 #### CARLTON Barragan ([id number]) [facility] ([facility]) [address] [place] [address] 50163 ALP [Catalytic activity/Vol] 131 U/L High 33-110 [facility] Comment on above: Performed By: #### 2 4323-8 #### CARLTON Barragan ([id number]) [facility] ([facility]) [address] [place] [address] 04205 ALT With P-5'-P [Catalytic activity/Vol] 113 U/L High 7-45 [facility] Comment on above: Result Comment: Tran ents treated with Sulfasalazine may generate falsely decreased results for ALT. Performed By: #### 2 4323-8 #### CARLTON Barragan ([id number]) [facility] ([facility]) [address] [place] [address] 46134 Anion gap [Moles/Vol] 11 mmol/L Normal 10-20 [facility] Comment on above: Performed By: #### 2 432-8 #### CARLTON Barragan ([id number]) [facility] ([facility]) [address] [place] [address] 27205 AST With P-5'-P [Catalytic activity/Vol] 180 U/L High 9-39 [facility] Comment on above: Performed By: #### 2 4323-8 #### CARLTON Barragan ([id number]) [facility] ([facility]) [address] [place] [address] 42666 Bilirubin [Mass/Vol] 1.0 mg/dL Normal 0.0-1.2 [facility] Comment on above: Performed By: #### 2 4323-8 #### CARLTON Barragan ([id number]) [facility] ([facility]) [address] [place] [address] 60233 Calcium [Mass/Vol] 9.9 mg/dL Normal 8.6-10.3 [facility] Comment on above: Performed By: #### 2 4323-8 #### CARLTON Barragan ([id number]) [facility] ([facility]) [address] [place] [address] 49272 Chloride [Moles/Vol] 99 mmol/L Normal 98-107 [facility] Comment on above: Performed By: #### 2 4323-8 #### CARLTON Barragan ([id number]) [facility] ([facility]) [address] [place] [address] CO2 [Moles/Vol] 27 mmol/L Normal 21-32 [facility] Comment on above: Performed By: #### 2 4323-8 #### CARLTON Barragan ([id number]) [facility] ([facility]) [address] [place] [address] Creatinine [Mass/Vol] 0.68 mg/dL Normal 0.50-1.05 [facility] Comment on above: Performed By: #### 2 4323-8 #### CARLTON Barragan ([id number]) [facility] ([facility]) [address] [place] [address] 34561 GFR/1.73 sq M.predicted MDRD (S/P/Bld) [Vol rate/Area] mL/min/{1.73_m2} Normal >60 [facility] Comment on above: Result Comment: Calc ulations of estimated GFR are performed using the 2020 CKD-EPI Study Refit equation without the race variable for the IDMS-Traceable creatinine methods. https://jasn.asnjournals.org/content/early//ASN.324164 9664 Performed By: #### 2 4323-8 #### CARLTON Barragan ([id number]) [facility] ([facility]) [address] [place] [address] 08611 Glucose [Mass/Vol] 81 mg/dL Normal 74-99 [facility] Comment on above: Performed By: #### 2 4323-8 #### CARLTON Barragan ([id number]) [facility] ([facility]) [address] [place] [address] 23359 Potassium [Moles/Vol] 4.2 mmol/L Normal 3.5-5.3 [facility] Comment on above: Performed By: #### 2 4323-8 #### CARLTON Barragan ([id number]) [facility] ([facility]) [address] [place] [address] 89770 Protein [Mass/Vol] 8.3 g/dL High 6.4-8.2 [facility] Comment on above: Performed By: #### 2 4323-8 #### CARLTON Barragan ([id number]) [facility] ([facility]) [address] [place] [address] 81946 Sodium [Moles/Vol] 133 mmol/L Low 136-145 [facility] Comment on above: Performed By: #### 2 4323-8 #### CARLTON Barragan ([id number]) [facility] ([facility]) [address] [place] [address] Urea nitrogen [Mass/Vol] 10 mg/dL Normal 6-23 [facility] Comment on above: Performed By: #### 2 4323-8 #### CARLTON Barragan ([id number]) [facility] ([facility]) [address] [place] [address] DRUG SCREEN,URINEon 12-16-19 Amphetamines Screen Ql (U) Negative Normal Presumptive Negative [facility] Comment on above: Order Comment: Drug screen results are presumptive and should not be used to assesscompliance with prescribed medication. Contact the performing [facility] laboratoryto add-on definitive confirmatory testing if clinically [...] By: #### 2 4323-8 #### CARLTON Barragan ([id number]) [facility] ([facility]) [address] [place] [address] Barbiturates Screen Ql (U) Positive Abnormal Presumptive Negative [facility] Comment on above: Order Comment: Drug screen results are presumptive and should not be used to assesscompliance with prescribed medication. Contact the performing [facility] laboratoryto add-on definitive confirmatory testing if clinically [...] By: #### 2 4323-8 #### CARLTON Barragan ([id number]) [facility] ([facility]) [address] [place] [address] 69387 Benzodiazepines Ql (U) Positive Abnormal Presumptive Negative [facility] Comment on above: Order Comment: Drug screen results are presumptive and should not be used to assesscompliance with prescribed medication. Contact the performing [facility] laboratoryto add-on definitive confirmatory testing if clinically [...] By: #### 2 4323-8 #### CARLTON Barragan ([id number]) [facility] ([facility]) [address] [place] [address] 60359 Benzoylecgonine Screen Ql (U) Negative Normal Presumptive Negative [facility] Comment on above: Order Comment: Drug screen results are presumptive and should not be used to assesscompliance with prescribed medication. Contact the performing [facility] laboratoryto add-on definitive confirmatory testing if clinically [...] By: #### 2 4323-8 #### CARLTON Barragan ([id number]) [facility] ([facility]) [address] [place] [address] 60148 Cannabinoids Screen Ql (U) Negative Normal Presumptive Negative [facility] Comment on above: Order Comment: Drug screen results are presumptive and should not be used to assesscompliance with prescribed medication. Contact the performing [facility] laboratoryto add-on definitive confirmatory testing if clinically [...] By: #### 2 4323-8 #### CARLTON Barragan ([id number]) [facility] ([facility]) [address] [place] [address] 93918 fentaNYL+Norfentanyl Screen Ql (U) Negative Normal Presumptive Negative [facility] Comment on above: Order Comment: Drug screen results are presumptive and should not be used to assesscompliance with prescribed medication. Contact the performing [facility] laboratoryto add-on definitive confirmatory testing if clinically [...] By: #### 2 4323-8 #### CARLTON Barragan ([id number]) [facility] ([facility]) [address] [place] [address] 42372 Opiates Screen Ql (U) Negative Normal Presum ptive Negative [facility] Comment on above: Order Comment: Drug screen results are presumptive and should not be used to assesscompliance with prescribed medication. Contact the performing [facility] laboratoryto add-on definitive confirmatory testing if clinically [...] By: #### 2 4323-8 #### CARLTON Barragan ([id number]) [facility] ([facility]) [address] [place] [address] 60902 oxyCODONE+oxyMORphone Screen Ql (U) Negative Normal Presumptive Negative [facility] Comment on above: Order Comment: Drug screen results are presumptive and should not be used to assesscompliance with prescribed medication. Contact the performing [facility] laboratoryto add-on definitive confirmatory testing if clinically [...] By: #### 2 4323-8 #### CARLTON Barragan ([id number]) [facility] ([facility]) [address] [place] [address] Phencyclidine Ql (U) Negative Normal Presump tive Negative [facility] Comment on above: Order Comment: Drug screen results are presumptive and should not be used to assesscompliance with prescribed medication. Contact the performing [facility] laboratoryto add-on definitive confirmatory testing if clinically [...] By: #### 2 4323-8 #### CARLTON Barragan ([id number]) [facility] ([facility]) [address] [place] [address] 39546 Amphetamines Screen Ql (U) Negative Normal Presumptive Negative [facility] Comment on above: Order Comment: Drug screen results are presumptive and should not be used to assesscompliance with prescribed medication. Contact the performing [facility] laboratoryto add-on definitive confirmatory testing if clinically [...] By: #### 2 4323-8 #### CARLTON Barragan ([id number]) [facility] ([facility]) [address] [place] [address] Barbiturates Screen Ql (U) Negative Normal Presumptive Negative [facility] Comment on above: Order Comment: Drug screen results are presumptive and should not be used to assesscompliance with prescribed medication. Contact the performing [facility] laboratoryto add-on definitive confirmatory testing if clinically [...] By: #### 2 4323-8 #### CARLTON Barragan ([id number]) [facility] ([facility]) [address] [place] [address] 24076 Benzodiazepines Ql (U) Positive Abnormal Presumptive Negative [facility] Comment on above: Order Comment: Drug screen results are presumptive and should not be used to assesscompliance with prescribed medication. Contact the performing [facility] laboratoryto add-on definitive confirmatory testing if clinically [...] By: #### 2 4323-8 #### CARLTON Barragan ([id number]) [facility] ([facility]) [address] [place] [address] 71601 Benzoylecgonine Screen Ql (U) Negative Normal Presumptive Negative [facility] Comment on above: Order Comment: Drug screen results are presumptive and should not be used to assesscompliance with prescribed medication. Contact the performing [facility] laboratoryto add-on definitive confirmatory testing if clinically [...] By: #### 2 4323-8 #### CARLTON Barragan ([id number]) [facility] ([facility]) [address] [place] [address] 91467 Cannabinoids Screen Ql (U) Negative Normal Presumptive Negative [facility] Comment on above: Order Comment: Drug screen results are presumptive and should not be used to assesscompliance with prescribed medication. Contact the performing [facility] laboratoryto add-on definitive confirmatory testing if clinically [...] By: #### 2 4323-8 #### CARLTON Barragan ([id number]) [facility] ([facility]) [address] [place] [address] 49862 fentaNYL+Norfentanyl Screen Ql (U) Negative Normal Presumptive Negative [facility] Comment on above: Order Comment: Drug screen results are presumptive and should not be used to assesscompliance with prescribed medication. Contact the performing [facility] laboratoryto add-on definitive confirmatory testing if clinically [...] By: #### 2 4323-8 #### CARLTON Barragan ([id number]) [facility] ([facility]) [address] [place] [address] 21160 Opiates Screen Ql (U) Negative Normal Presum ptive Negative [facility] Comment on above: Order Comment: Drug screen results are presumptive and should not be used to assesscompliance with prescribed medication. Contact the performing [facility] laboratoryto add-on definitive confirmatory testing if clinically [...] By: #### 2 4323-8 #### CARLTON Barragan ([id number]) [facility] ([facility]) [address] [place] [address] 49208 oxyCODONE+oxyMORphone Screen Ql (U) Negative Normal Presumptive Negative [facility] Comment on above: Order Comment: Drug screen results are presumptive and should not be used to assesscompliance with prescribed medication. Contact the performing [facility] laboratoryto add-on definitive confirmatory testing if clinically [...] By: #### 2 4323-8 #### CARLTON Barragan ([id number]) [facility] ([facility]) [address] [place] [address] 20211 Phencyclidine Ql (U) Negative Normal Presump tive Negative [facility] Comment on above: Order Comment: Drug screen results are presumptive and should not be used to assesscompliance with prescribed medication. Contact the performing [facility] laboratoryto add-on definitive confirmatory testing if clinically [...] By: #### 2 4323-8 #### CARLTON Barragan ([id number]) [facility] ([facility]) [address] [place] [address] 98403 Drug Screen, Urineon 023 Amphetamines Screen Ql (U) Negative Presumptive Negative [facility] Comment on above: CUTOFF LEVEL: 500 NG /ML Cross-reactivity has been reported with high concentrations of the following drugs: buproprion, chloroquine, chlorpromazine, ephedrine, mephentermine, fenfluramine, phentermine, phenylpropanolamine, pseudoephedrine, and propranolol. Barbiturates Screen Ql (U) Positive Abnormal Presumptive Negative [facility] Comment on above: CUTOFF LEVEL: 200 NG /ML Benzodiazepines Ql (U) Positive Abnormal Presumptive Negative [facility] Comment on above: CUTOFF LEVEL: 200 NG /ML Benzoylecgonine Screen Ql (U) Negative Presumptive Negative [facility] Comment on above: CUTOFF LEVEL: 150 NG /ML Cannabinoids Screen Ql (U) Negative Presumptive Negative [facility] Comment on above: CUTOFF LEVEL: 50 NG/ ML fentaNYL+Norfentanyl Screen Ql (U) Negative Presumptive Negative [facility] Comment on above: CUTOFF LEVEL: 5 NG/M L Interpretation and review of laboratory results Abnormal [facility] Opiates Screen Ql (U) Negative Presum ptive Negative [facility] Comment on above: CUTOFF LEVEL: 300 NG /ML The opiate screen does not detect fentanyl, meperidine, or tramadol. Oxycodone is not consistently detected (refer to Oxycodone Screen, Urine result). oxyCODONE+oxyMORphone Screen Ql (U) Negative Presumptive Negative [facility] Comment on above: CUTOFF LEVEL: 100 NG /ML This test will accurately detect both oxycodone and oxymorphone. Phencyclidine Ql (U) Negative Presump tive Negative [facility] Comment on above: CUTOFF LEVEL: 25 NG/ ML Cross-reactivity has been reported with dextromethorphan. Drug screen results are presumptive and should not be used to assess compliance with prescribed medication. Contact the performing [facility] laboratory to add-on definitive confirmatory testing if [...] be directed to the laboratory medical directors. [facility] HCG ( test) IA.rapi d Ql (U)on 12-15-2022 HCG ( test) Ql (U) Negative Normal NEGATIVE [facility] Comment on above: Performed By: #### 8 0384-1 #### CARLTON Barragan ([id number]) [facility] ([facility]) [address] [place] [address] 85691 RBC shape Nom (Bld)on 2022 RBC morphology finding Nom (Bld) No significant RBC morphology present Normal [facility] Comment on above: Performed By: #### 2 4323-8 #### CARLTON Barragan ([id number]) [facility] ([facility]) [address] [place] [address] 35585 Urinalysis complete panel (U )on 12-15-2022 Appearance (U) Clear Normal Clear [facility] Comment on above: Performed By: #### 2 4356-8 #### CARLTON Barragan ([id number]) [facility] ([facility]) [address] [place] [address] 28066 Bilirubin (U) [Mass/Vol] Negative Normal NEGATIVE [facility] Comment on above: Performed By: #### 2 4356-8 #### CARLTON Barragan ([id number]) [facility] ([facility]) [address] [place] [address] 52719 Color (U) Yellow Normal Straw, Yellow [facility] Comment on above: Performed By: #### 2 4356-8 #### CARLTON Barragan ([id number]) [facility] ([facility]) [address] [place] [address] 79030 Glucose Auto test strip (U) [Mass/Vol] Negative Normal NEGATIVE [facility] Comment on above: Performed By: #### 2 4356-8 #### CARLTON Barragan ([id number]) [facility] ([facility]) [address] [place] [address] 11020 Ketones (U) [Mass/Vol] Negative Normal NEGATIVE [facility] Comment on above: Performed By: #### 2 4356-8 #### CARLTON Barragan ([id number]) [facility] ([facility]) [address] [place] [address] 49116 Leukocyte esterase Auto test strip Ql (U) Negative Normal NEGATIVE [facility] Comment on above: Performed By: #### 2 4356-8 #### CARLTON Barragan ([id number]) [facility] ([facility]) [address] [place] [address] 23270 Nitrite Auto test strip Ql (U) Negative Normal NEGATIVE [facility] Comment on above: Performed By: #### 2 4356-8 #### CARTLON Barragan ([id number]) [facility] ([facility]) [address] [place] [address] 36529 pH (U) 8.0 [pH] Normal 5.0, 5.5, 6.0, 6.5, 7.0, 7.5, 8.0 [facility] Comment on above: Performed By: #### 2 4356-8 #### CARLTON Barragan ([id number]) [facility] ([facility]) [address] [place] [address] 73309 Protein (U) [Mass/Vol] Negative Normal NEGATIVE [facility] Comment on above: Performed By: #### 2 4356-8 #### CARLTON Barragan ([id number]) [facility] ([facility]) [address] [place] [address] 74411 RBC (U) [#/Vol] Negative Normal NEGATIVE [facility] Comment on above: Performed By: #### 2 4356-8 #### CARLTON Barragan ([id number]) [facility] ([facility]) [address] [place] [address] 86696 Specific gravity (U) [Rel density] 1.006 Normal 1.005-1.035 [facility] Comment on above: Performed By: #### 2 4356-8 #### CARLTON Barragan ([id number]) [facility] ([facility]) [address] [place] [address] 30019 Urobilinogen (U) [Mass/Vol] 4.0 mg/dL Normal <2.0 [facility] Comment on above: Result Comment: Some pigments and medications may cause a false positive urobilinogen. Performed By: #### 2 4356-8 #### CARLTON Barragan ([id number]) [facility] ([facility]) [address] [place] [address] Acute Toxicology Panel, Bloo don 12-14-2022 Acetaminophen [Mass/Vol] ug/mL 10.0 - 30.0 ug/mL [facility] Ethanol [Mass/Vol] mg/dL NINF - 10 mg/dL [facility] Interpretation and review of laboratory results Normal [facility] Salicylates [Mass/Vol] mg/dL 4 - 20 mg/dL [facility] Acute hepatitis 2000 panel ( S)on 12-14-2022 HAV IgM Ql (S) Non-Reactive Normal Nonreactive [facility] Comment on above: Result Comment: Biot in interference may cause falsely decreased results. Patients taking a Biotin dose of up to 5 mg/day should refrain from taking Biotin for 24 hours before sample collection. Providers may contact their local laboratory for further information. Performed By: #### 2 4363-4 #### MERLY Barragan ([id number]) [facility] ([facility] [place] [facility]) [address] [place] [address] HBV core IgM Ql (S) Non-Reactive Normal Nonreactive Un [facility] Comment on above: Result Comment: Resu lts from patients taking biotin supplements or receiving high-dose biotin therapy should be interpreted with caution due to possible interference with this test. Providers may contact their local laboratory for further information. Performed By: #### 2 4363-4 #### MERLY Barragan ([id number]) [facility] ([facility] [place] [facility]) [address] [place] [address] HBV surface Ag IA Ql Non-Reactive Normal Nonreactive U [facility] Comment on above: Result Comment: Biot in interference may cause falsely decreased results. Patients taking a Biotin dose of up to 5 mg/day should refrain from taking Biotin for 24 hours before sample collection. Providers may contact their local laboratory for further information. Performed By: #### 2 4363-4 #### MERLY Barragan ([id number]) [facility] ([facility] [facility]) [address] [place] [address] HCV Ab Ql (S) Reactive Abnormal Nonreactive [facility] Comment on above: Result Comment: [...] By: #### 2 4363-4 #### MERLY Barragan ([id number]) [facility] ([facility] [place] [facility]) [address] [place] [address] CBC W Auto Differential pane l (Bld)on 12-14-2022 Basophils (Bld) [#/Vol] 0.02 10*3/uL [facility] Comment on above: Automated WBC differ ential has been confirmed by manual smear. Basophils/100 WBC (Bld) 0.3 % 0.0 - 2.0 % [facility] Eosinophils (Bld) [#/Vol] 0.08 10*3/uL [facility] Eosinophils/100 WBC (Bld) 1.4 % 0.0 - 6.0 % [facility] Erythrocyte distribution width (RBC) [Ratio] 12.4 % 11.5 - 14.5 % [facility] Hematocrit (Bld) [Volume fraction] 39.4 % 36.0 - 46.0 % [facility] Hemoglobin (Bld) [Mass/Vol] 13.8 g/dL 12.0 - 16.0 g/dL [facility] Immature granulocytes (Bld) [#/Vol] 0.02 10*3/uL [facility] Immature granulocytes/100 WBC (Bld) 0.3 % 0.0 - 0.9 % [facility] Comment on above: Immature Granulocyte Count (IG) includes promyelocytes, myelocytes and metamyelocytes but does not include bands. Percent differential counts (%) should be interpreted in the context of the absolute cell counts (cells/UL). Interpretation and review of laboratory results Abnormal [facility] Lymphocytes (Bld) [#/Vol] 1.92 10*3/uL [facility] Lymphocytes/100 WBC (Bld) 32.6 % 13.0 - 44.0 % [facility] MCH (RBC) [Entitic mass] 34.4 pg High 26.0 - 34.0 pg [facility] MCHC (RBC) [Mass/Vol] 35.0 g/dL 32.0 - 36.0 g/dL [facility] MCV (RBC) [Entitic vol] 98 fL 80 - 100 fL [facility] Monocytes (Bld) [#/Vol] 0.22 10*3/uL [facility] Monocytes/100 WBC (Bld) 3.7 % 2.0 - 10.0 % [facility] Neutrophils (Bld) [#/Vol] 3.63 10*3/uL [facility] Comment on above: Percent differential counts (%) should be interpreted in the context of the absolute cell counts (cells/uL). Neutrophils/100 WBC (Bld) 61.7 % 40.0 - 80.0 % [facility] Nucleated RBC/100 WBC (Bld) [Ratio] 0.0 % [facility] Platelets (Bld) [#/Vol] 89 10*3/uL Low [facility] Comment on above: Platelet count verif ied by smear review. RBC (Bld) [#/Vol] 4.01 10*6/uL [facility] WBC (Bld) [#/Vol] 5.9 10*3/uL [facility] Comprehensive metabolic 2000 panelon 12-14-2022 Albumin BCP dye [Mass/Vol] 4.3 g/dL 3.4 - 5.0 g/dL [facility] ALP [Catalytic activity/Vol] 131 U/L High 33 - 110 U/L [facility] ALT With P-5'-P [Catalytic activity/Vol] 113 U/L High 7 - 45 U/L [facility] Comment on above: Patients treated wit h Sulfasalazine may generate falsely decreased results for ALT. Anion gap [Moles/Vol] 11 mmol/L 10 - 2 0 mmol/L [facility] AST With P-5'-P [Catalytic activity/Vol] 180 U/L High 9 - 39 U/L [facility] Bilirubin [Mass/Vol] 1.0 mg/dL 0.0 - 1 .2 mg/dL [facility] Calcium [Mass/Vol] 9.9 mg/dL 8.6 - 10. 3 mg/dL [facility] Chloride [Moles/Vol] 99 mmol/L 98 - 10 7 mmol/L [facility] CO2 [Moles/Vol] 27 mmol/L 21 - 32 mmol/L [facility] Creatinine [Mass/Vol] 0.68 mg/dL 0.50 - 1.05 mg/dL [facility] GFR/1.73 sq M.predicted MDRD (S/P/Bld) [Vol rate/Area] - PINF [facility] Comment on above: Calculations of jerel mated GFR are performed using the 2020 CKD-EPI Study Refit equation without the race variable for the IDMS-Traceable creatinine methods. https://jasn.asnjournals.org/content//ASN.084630 6293 Glucose [Mass/Vol] 81 mg/dL 74 - 99 mg/dL [facility] Interpretation and review of laboratory results Abnormal [facility] Potassium [Moles/Vol] 4.2 mmol/L 3.5 - 5.3 mmol/L [facility] Protein [Mass/Vol] 8.3 g/dL High 6.4 - 8.2 g/dL [facility] Sodium [Moles/Vol] 133 mmol/L Low 136 - 145 mmol/L [facility] Urea nitrogen [Mass/Vol] 10 mg/dL 6 - 23 mg/dL [facility] Albumin BCP dye [Mass/Vol] 4.2 g/dL Normal 3.4-5.0 [facility] Comment on above: Performed By: #### 2 4323-8 #### CARLTON Barragan ([id number]) [facility] ([facility]) [address] [place] [address] 82108 ALP [Catalytic activity/Vol] 126 U/L High 33-110 [facility] Comment on above: Performed By: #### 2 4323-8 #### CARLTON Barragan ([id number]) [facility] ([facility]) [address] [place] [address] 58685 ALT With P-5'-P [Catalytic activity/Vol] 109 U/L High 7-45 [facility] Comment on above: Result Comment: Tran ents treated with Sulfasalazine may generate falsely decreased results for ALT. Performed By: #### 2 4323-8 #### CARLTON Barragan ([id number]) [facility] ([facility]) [address] [place] [address] 24736 Anion gap [Moles/Vol] 12 mmol/L Normal 10-20 [facility] Comment on above: Performed By: #### 2 4323-8 #### CARLTON Barragan ([id number]) [facility] ([facility]) [address] [place] [address] 39190 AST With P-5'-P [Catalytic activity/Vol] 172 U/L High 9-39 [facility] Comment on above: Result Comment: MODE RATE HEMOLYSIS DETECTED. The result may be falsely elevated due to hemolysis or other interferents. Clinical correlation is recommended. Repeat testing may be considered. Performed By: #### 2 4323-8 #### CARLTON Barragan ([id number]) [facility] ([facility]) [address] [place] [address] 86291 Bilirubin [Mass/Vol] 1.3 mg/dL High 0.0-1.2 [facility] Comment on above: Performed By: #### 2 4323-8 #### CARLTON Barragan ([id number]) [facility] ([facility]) [address] [place] [address] 31729 Calcium [Mass/Vol] 10.0 mg/dL Normal 8.6-10.3 [facility] Comment on above: Performed By: #### 2 4323-8 #### CARLTON Barragan ([id number]) [facility] ([facility]) [address] [place] [address] 40994 Chloride [Moles/Vol] 100 mmol/L Normal 98-107 [facility] Comment on above: Performed By: #### 2 4323-8 #### CARLTON Barragan ([id number]) [facility] ([facility]) [address] [place] [address] 07696 CO2 [Moles/Vol] 26 mmol/L Normal 21-32 [facility] Comment on above: Performed By: #### 2 4323-8 #### CARLTON Barragan ([id number]) [facility] ([facility]) [address] [place] [address] 52745 Creatinine [Mass/Vol] 0.59 mg/dL Normal 0.50-1.05 [facility] Comment on above: Performed By: #### 2 4323-8 #### CARLTON Barragan ([id number]) [facility] ([facility]) [address] [place] [address] 93838 GFR/1.73 sq M.predicted MDRD (S/P/Bld) [Vol rate/Area] mL/min/{1.73_m2} Normal >60 [facility] Comment on above: Result Comment: Calc ulations of estimated GFR are performed using the 2020 CKD-EPI Study Refit equation without the race variable for the IDMS-Traceable creatinine methods. https://jasn.asnjournals.org/content//ASN.735280 1998 Performed By: #### 2 432-8 #### CARLTON Barragan ([id number]) [facility] ([facility]) [address] [place] [address] 38258 Glucose [Mass/Vol] 104 mg/dL High 74-99 [facility] Comment on above: Performed By: #### 2 4323-8 #### CARLTON Barragan ([id number]) [facility] ([facility]) [address] [place] [address] 13892 Potassium [Moles/Vol] 5.4 mmol/L High 3.5-5.3 [facility] Comment on above: Result Comment: MODE RATE HEMOLYSIS DETECTED. The result may be falsely elevated due to hemolysis or other interferents. Clinical correlation is recommended. Repeat testing may be considered. Performed By: #### 2 432-8 #### CARLTON Barragan ([id number]) [facility] ([facility]) [address] [place] [address] 91491 Protein [Mass/Vol] 8.3 g/dL High 6.4-8.2 [facility] Comment on above: Performed By: #### 2 432-8 #### CARLTON Barragan ([id number]) [facility] ([facility]) [address] [place] [address] 21168 Sodium [Moles/Vol] 133 mmol/L Low 136-145 [facility] Comment on above: Performed By: #### 2 432-8 #### CARLTON Barragan ([id number]) [facility] ([facility]) [address] [place] [address] 12197 Urea nitrogen [Mass/Vol] 10 mg/dL Normal 6-23 [facility] Comment on above: Performed By: #### 2 432-8 #### CARLTON Barragan ([id number]) [facility] ([facility]) [address] [place] [address] 63346 Drug Screen, Urineon 023 Amphetamines Screen Ql (U) Negative Presumptive Negative [facility] Comment on above: CUTOFF LEVEL: 500 NG /ML Cross-reactivity has been reported with high concentrations of the following drugs: buproprion, chloroquine, chlorpromazine, ephedrine, mephentermine, fenfluramine, phentermine, phenylpropanolamine, pseudoephedrine, and propranolol. Barbiturates Screen Ql (U) Negative Presumptive Negative [facility] Comment on above: CUTOFF LEVEL: 200 NG /ML Benzodiazepines Ql (U) Positive Abnormal Presumptive Negative [facility] Comment on above: CUTOFF LEVEL: 200 NG /ML Benzoylecgonine Screen Ql (U) Negative Presumptive Negative [facility] Comment on above: CUTOFF LEVEL: 150 NG /ML Cannabinoids Screen Ql (U) Negative Presumptive Negative [facility] Comment on above: CUTOFF LEVEL: 50 NG/ ML fentaNYL+Norfentanyl Screen Ql (U) Negative Presumptive Negative [facility] Comment on above: CUTOFF LEVEL: 5 NG/M L Interpretation and review of laboratory results Abnormal [facility] Opiates Screen Ql (U) Negative Presum ptive Negative [facility] Comment on above: CUTOFF LEVEL: 300 NG /ML The opiate screen does not detect fentanyl, meperidine, or tramadol. Oxycodone is not consistently detected (refer to Oxycodone Screen, Urine result). oxyCODONE+oxyMORphone Screen Ql (U) Negative Presumptive Negative [facility] Comment on above: CUTOFF LEVEL: 100 NG /ML This test will accurately detect both oxycodone and oxymorphone. Phencyclidine Ql (U) Negative Presump tive Negative [facility] Comment on above: CUTOFF LEVEL: 25 NG/ ML Cross-reactivity has been reported with dextromethorphan. Drug screen results are presumptive and should not be used to assess compliance with prescribed medication. Contact the performing [facility] laboratory to add-on definitive confirmatory testing if [...] be directed to the laboratory medical directors. [facility] Ethanolon 12-14-2022 Ethanol [Mass/Vol] mg/dL Normal <=10 [facility] Comment on above: Result Comment: For medical use only. Performed By: #### 5 643-2 #### CARLTON Barragan ([id number]) [facility] (C) [address] [place] [address] HCG ( test) IA.rapi d Ql (U)Ordered By: Isabelle Lomeli on 12-14-2022 HCG ( test) Ql (U) Negative NEGATIVE [facility] Interpretation and review of laboratory results Normal [facility] HIV 1+2 Ab+HIV1 p24 Agon HIV 1+2 Ab+HIV1 p24 Ag IA Ql Non-Reactive Normal Nonreactive [facility] Comment on above: Order Comment: HIV A g/Ab screen is performed using the Siemens myeasydocs HIV Ag/Ab Combo assay which detects the presence of HIV p24 antigen as well as antibodies to HIV-1 (Group M and O) and HIV-2. No laboratory evidence of HIV infection. If acute HIV infection is suspected, consider testing for HIV RNA by PCR (viral load). Performed By: #### 5 6888-1 #### MERLY Barragan ([id number]) [facility] ([facility]) [address] [place] [address] No Panel Informationon 12-14 [facility] RBC shape Nom (Bld)on 2022 RBC morphology finding Nom (Bld) No significant RBC morphology present [facility] Reagin Abon 12-14-2022 Reagin Ab RPR Ql (S) Non-Reactive Normal Nonreactive U [facility] Comment on above: Performed By: #### 2 4323-8 #### CARLTON Barragan ([id number]) [facility] ([facility]) [address] [place], [place] [id number] Urinalysis complete panel (U )on 12-14-2022 Appearance (U) Clear Clear [facility] Bilirubin (U) [Mass/Vol] Negative NEGATIVE [facility] Color (U) Yellow Straw, Yellow [facility] Glucose Auto test strip (U) [Mass/Vol] Negative NEGATIVE mg/dL [facility] Interpretation and review of laboratory results Abnormal [facility] Ketones (U) [Mass/Vol] Negative NEGATIVE mg/dL [facility] Leukocyte esterase Auto test strip Ql (U) Negative NEGATIVE [facility] Nitrite Auto test strip Ql (U) Negative NEGATIVE [facility] pH (U) 8.0 [pH] 5.0, 5.5, 6.0, 6.5, 7.0, 7.5, 8.0 [facility] Protein (U) [Mass/Vol] Negative NEGATIVE mg/dL [facility] RBC (U) [#/Vol] Negative NEGATIVE [facility] Specific gravity (U) [Rel density] 1.006 1.005 - 1.035 [facility] Urobilinogen (U) [Mass/Vol] 4.0 mg/dL Abnormal NINF - 2.0 mg/dL [facility] Comment on above: Some pigments and me dications may cause a false positive urobilinogen. [facility] ED Note-Physicianon 12-14-19 23 ED Note-Physician [id number]#[id number] F Normal [facility] BUPRENORPHINE SCREEN TO CONF IRM,URINEon 12-12-2022 Buprenorphine Screen Ql (U) Negative Normal Cutoff 5 [facility] Comment on above: Performed By: #### B UPRS #### [facility] JúniorNIRAVHEMAL) ([id number]) [address] [place] [address] 80889 Drug screen comment (U) [Interp] See Note Normal [facility] Comment on above: Result Comment: [...] not valid for forensic use. Performed By: Who@ [address] [place] [address] Movie Projectionist: Issa Waller MD, PhD CLIA Number: [id number] Performed By: #### B UPRS #### [facility] PINA) ([id number]) [address] [place] [address] DRUG SCREEN,URINEon 12-13-19 23 Amphetamines Screen Ql (U) Negative Normal Presumptive Negative [facility] Comment on above: Order Comment: Drug screen results are presumptive and should not be used to assess compliance with prescribed medication. Contact the performing [facility] laboratory to add-on definitive confirmatory testing if [...] By: #### D RUG3 #### CARLTON Barragan ([id number]) [facility] ([facility]) [address] [place] [address] 27701 Barbiturates Screen Ql (U) Negative Normal Presumptive Negative [facility] Comment on above: Order Comment: Drug screen results are presumptive and should not be used to assess compliance with prescribed medication. Contact the performing [facility] laboratory to add-on definitive confirmatory testing if [...] By: #### Sadiq RUG3 #### CARLTON Barragan ([id number]) [facility] ([facility]) [address] [place] [address] 33123 Benzodiazepines Ql (U) Negative Normal Presumptive Negative [facility] Comment on above: Order Comment: Drug screen results are presumptive and should not be used to assess compliance with prescribed medication. Contact the performing [facility] laboratory to add-on definitive confirmatory testing if [...] By: #### Sadiq RUG3 #### CARLTON Barragan ([id number]) [facility] ([facility]) [address] [place] [address] 64966 Benzoylecgonine Screen Ql (U) Negative Normal Presumptive Negative [facility] Comment on above: Order Comment: Drug screen results are presumptive and should not be used to assess compliance with prescribed medication. Contact the performing [facility] laboratory to add-on definitive confirmatory testing if [...] By: #### D RUG3 #### CARLTON Barragan ([id number]) [facility] ([facility]) [address] [place] [address] 78991 Cannabinoids Screen Ql (U) Negative Normal Presumptive Negative [facility] Comment on above: Order Comment: Drug screen results are presumptive and should not be used to assess compliance with prescribed medication. Contact the performing [facility] laboratory to add-on definitive confirmatory testing if [...] By: #### Sadiq RUG3 #### CARLTON Barragan ([id number]) [facility] ([facility]) [address] [place] [address] 45724 fentaNYL+Norfentanyl Screen Ql (U) Negative Normal Presumptive Negative [facility] Comment on above: Order Comment: Drug screen results are presumptive and should not be used to assess compliance with prescribed medication. Contact the performing [facility] laboratory to add-on definitive confirmatory testing if [...] By: #### D RUG3 #### CARLTON Barragan ([id number]) [facility] ([facility]) [address] [place] [address] 13911 Opiates Screen Ql (U) Negative Normal Presum ptive Negative [facility] Comment on above: Order Comment: Drug screen results are presumptive and should not be used to assess compliance with prescribed medication. Contact the performing [facility] laboratory to add-on definitive confirmatory testing if [...] Screen, Urine result). Performed By: #### Sadiq RUG3 #### CARLTON Barragan ([id number]) [facility] ([facility]) [address] [place] [address] 63738 oxyCODONE+oxyMORphone Screen Ql (U) Negative Normal Presumptive Negative [facility] Comment on above: Order Comment: Drug screen results are presumptive and should not be used to assess compliance with prescribed medication. Contact the performing [facility] laboratory to add-on definitive confirmatory testing if [...] By: #### Sadiq RUG3 #### CARLTON Barragan ([id number]) [facility] ([facility]) [address] [place], [place] [phone] Phencyclidine Ql (U) Negative Normal Presump tive Negative [facility] Comment on above: Order Comment: Drug screen results are presumptive and should not be used to assess compliance with prescribed medication. Contact the performing [facility] laboratory to add-on definitive confirmatory testing if [...] been reported with dextromethorphan. Performed By: #### Sadiq RUG3 #### CARLTON Barragan ([id number]) [facility] ([facility]) [address] [place] [address] 72861 Gabapentinon 12-12-2022 Gabapentin (U) [Mass/Vol] 242.4 ug/mL Normal [facility] Comment on above: Result Comment: [...] developed and its performance characteristics determined by Who@. It has not been cleared or approved by the [place] Food and Drug Administration. This test was performed in a CLIA certified laboratory and is intended for clinical purposes. Performed By: Who@ [address] [place] [address] Movie Projectionist: Issa Waller MD, PhD CLIA Number: [id number] Performed By: #### 2 4323-8 #### CARLTON Barragan ([id number]) [facility] ([facility]) [address] [place] [address] Acetaminophen [Mass/volume] in Serum or PlasmaOrdered By: Ari Aguero on 12-11-2022 Acetaminophen [Mass/Vol] 0.3 ug/mL 10.0-30.0 [facility] Alanine aminotransferase [En zymatic activity/volume] in Serum or PlasmaOrdered By: Ari Aguero on 12-11-2022 ALT [Catalytic activity/Vol] 125 U/L 7-52 [facility] Albumin [Mass/volume] in Ser um or Plasma by Bromocresol green (BCG) dye binding methoOrdered By: Ari Aguero on 12-11-2022 Albumin BCG dye [Mass/Vol] 3.8 g/dL 3.5-5.7 [facility] Alkaline phosphatase [Enzyma tic activity/volume] in Serum or PlasmaOrdered By: Ari Aguero on 12-11-2022 ALP [Catalytic activity/Vol] 132 U/L 34-104 [facility] Amphetamine Screen Ql (U)Ord ered By: Ari Aguero on 12-11-2022 Amphetamines Ql (U) Negative Negative [facility] Aspartate aminotransferase [ Enzymatic activity/volume] in Serum or PlasmaOrdered By: Ari Aguero on 12-11-2022 AST [Catalytic activity/Vol] 223 U/L 13-39 [facility] Barbiturates [Presence] in U rine by Screen methodOrdered By: Ari Aguero on 12-11-2022 Barbiturates Screen Ql (U) Negative Negative [facility] Basophils Auto (Bld) [#/Vol] Ordered By: Ari Aguero on 12-11-2022 Basophils (Bld) [#/Vol] 0.0 10*3/uL 0.0-0.2 [facility] Basophils/100 WBC Auto (Bld) Ordered By: Ari Aguero on 12-11-2022 Basophils/100 WBC (Bld) 0.7 % . [facility] Benzodiazepines Screen Ql (U )Ordered By: Ari Aguero on 12-11-2022 Benzodiazepines Ql (U) Negative Negative [facility] Benzoylecgonine [Presence] i n Urine by Screen methodOrdered By: Ari Aguero on 12-11-2022 Benzoylecgonine Screen Ql (U) Negative Negative [facility] Bilirubin Test strip Ql (U)O rdered By: Ari Aguero on 12-11-2022 Bilirubin Ql (U) Negative Negative [facility] Bilirubin.total [Mass/volume ] in Serum or PlasmaOrdered By: Ari Aguero on 12-11-2022 Bilirubin [Mass/Vol] 0.5 mg/dL 0.3-1.0 [facility] Calcium [Mass/volume] in Ser um or PlasmaOrdered By: Ari Aguero on 12-11-2022 Calcium [Mass/Vol] 8.5 mg/dL 8.6-10.3 [facility] Cannabinoids [Presence] in U rine by Screen methodOrdered By: Ari Aguero on 12-11-2022 Cannabinoids Screen Ql (U) Negative Negative [facility] Comment on above: These are unconfirme d results and should not be used for legal purposes. Drug Cut-Off Concentration: AMPH 1000 ng/mL JANELL 200 ng/mL JAMES 200 ng/mL COCM 300 ng/mL OP 300 ng/mL PCP 25 ng/mL THC 20 ng/mL Carbon dioxide, total [Moles /volume] in Serum or PlasmaOrdered By: Ari Aguero on 12-11-2022 CO2 [Moles/Vol] 23.7 mmol/L 21.0-31.0 [facility] Chloride [Moles/volume] in S marbella or PlasmaOrdered By: Ari Aguero on 12-11-2022 Chloride [Moles/Vol] 109 mmol/L 98-107 [facility] Color Auto (U)Ordered By: Robin red More on 12-11-2022 Color (U) Yellow Yellow [facility] Creatinine [Mass/volume] in Serum or PlasmaOrdered By: Ari Aguero on 12-11-2022 Creatinine [Mass/Vol] 0.51 mg/dL 0.60-1.20 [facility] Discharge Instructionson Discharge Instructions [id number]#[id number] FF Normal [facility] Eosinophils Auto (Bld) [#/Vo l]Ordered By: Ari Aguero on 12-11-2022 Eosinophils (Bld) [#/Vol] 0.0 10*3/uL 0.0-0.45 [facility] Eosinophils/100 WBC Auto (Bl d)Ordered By: Ari Aguero on 12-11-2022 Eosinophils/100 WBC (Bld) 0.8 % . [facility] Erythrocyte distribution wid th Auto (RBC) [Ratio]Ordered By: Ari Aguero on 12-11-2022 Erythrocyte distribution width (RBC) [Ratio] 14.3 % 11.9-15.3 [facility] Ethanol [Mass/volume] in Ser um or PlasmaOrdered By: Ari Aguero on 12-11-2022 Ethanol [Mass/Vol] 287 mg/dL [facility] Ethanol [Mass/Vol] 0.287 % [facility] Globulin Calc (S) [Mass/Vol] Ordered By: Ari Aguero on 12-11-2022 Globulin (S) [Mass/Vol] 3.2 g/dL [facility] Glucose [Mass/volume] in Ser um or PlasmaOrdered By: Ari Aguero on 12-11-2022 Glucose [Mass/Vol] 93 mg/dL 70-100 [facility] Comment on above: ADA recommended refe rence rangeRandom Glucose Reference Range is dependent on time and content of last meal. Glucose of more than 200 mg/dL in a nonstressed, ambulatory subject supports the diagnosis of Diabetes Mellitus. HCG ( test) IAphuci d Ql (U)Ordered By: Ari Aguero on 12-11-2022 HCG ( test) Ql (U) Negative [facility] Hematocrit Auto (Bld) [Volum e fraction]Ordered By: rAi Aguero on 12-11-2022 Hematocrit (Bld) [Volume fraction] 41.0 % 34.0-46.4 [facility] Hemoglobin [Mass/volume] in BloodOrdered By: Ari Aguero on 12-11-2022 Hemoglobin (Bld) [Mass/Vol] 13.8 g/dL 11.8-15.4 [facility] Ketones Auto test strip (U) [Mass/Vol]Ordered By: Ari Aguero on 12-11-2022 Ketones (U) [Mass/Vol] Negative Negative [facility] Leukocytes [#/volume] correc jose for nucleated erythrocytes in Blood by Automated counOrdered By: Ari Aguero on 12-11-2022 WBC corrected for nucl RBC Auto (Bld) [#/Vol] 3.7 10*3/uL 3.8-11.6 [facility] Lymphocytes Auto (Bld) [#/Vo l]Ordered By: Ari Aguero on 12-11-2022 Lymphocytes (Bld) [#/Vol] 1.9 10*3/uL 1.00-4.8 [facility] Lymphocytes/100 WBC Auto (Bl d)Ordered By: Ari Aguero on 12-11-2022 Lymphocytes/100 WBC (Bld) 50.5 % . [facility] MCH Auto (RBC) [Entitic mass ]Ordered By: Ari Aguero on 12-11-2022 MCH (RBC) [Entitic mass] 33.9 pg 24.7-34.3 [facility] MCHC Auto (RBC) [Mass/Vol]Or dered By: Ari Aguero on 12-11-2022 MCHC (RBC) [Mass/Vol] 33.5 g/dL 32.0-35.0 [facility] MCV Auto (RBC) [Entitic vol] Ordered By: Ari Aguero on 12-11-2022 MCV (RBC) [Entitic vol] 101.1 fL 80-100 [facility] Monocyte distribution width [Entitic volume] in Blood by AutomatedOrdered By: Ari Aguero on 12-11-2022 Monocyte distribution width Auto (Bld) [Entitic vol] 18.99 % 0.00-20.00 [facility] Monocytes Auto (Bld) [#/Vol] Ordered By: Ari Aguero on 12-11-2022 Monocytes (Bld) [#/Vol] 0.2 10*3/uL 0.0-0.8 [facility] Monocytes/100 WBC Auto (Bld) Ordered By: Ari Aguero on 12-11-2022 Monocytes/100 WBC (Bld) 5.9 % . [facility] Neutrophils Auto (Bld) [#/Vo l]Ordered By: Ari Aguero on 12-11-2022 Neutrophils (Bld) [#/Vol] 1.6 10*3/uL 1.8-7.7 [facility] Neutrophils/100 WBC Auto (Bl d)Ordered By: Ari Aguero on 12-11-2022 Neutrophils/100 WBC (Bld) 42.1 % . [facility] Nitrite Test strip Ql (U)Ord ered By: Ari Aguero on 12-11-2022 Nitrite Ql (U) Negative Negative [facility] No Panel InformationOrdered By: Ari Aguero on 12-11-2022 Estimated GFR (CKD-EPI) > 60.0 mL/Min [facility] Creatinine Clearance (Chem 165.10 [facility] Nucleated erythrocytes [Pres ence] in Blood by Automated countOrdered By: Ari Aguero on 12-11-2022 Nucleated RBC Auto Ql (Bld) 0.3 /100{WBC} 0-0.5 [facility] Opiates [Presence] in Urine by Screen methodOrdered By: Ari Aguero on 12-11-2022 Opiates Screen Ql (U) Negative Negative [facility] Phencyclidine Screen Ql (U)O rdered By: Ari Aguero on 12-11-2022 Phencyclidine Ql (U) Negative Negative [facility] Platelet mean volume Auto (B ld) [Entitic vol]Ordered By: Ari Aguero on 12-11-2022 Platelet mean volume (Bld) [Entitic vol] 9.0 fL 6.3-10.7 [facility] Platelets Auto (Bld) [#/Vol] Ordered By: Ari Aguero on 12-11-2022 Platelets (Bld) [#/Vol] 103 10*3/uL 150-450 [facility] Potassium [Moles/volume] in Serum or PlasmaOrdered By: Ari Aguero on 12-11-2022 Potassium [Moles/Vol] 4.0 mmol/L 3.5-5.1 [facility] Protein Auto test strip (U) [Mass/Vol]Ordered By: Ari Aguero on 12-11-2022 Protein (U) [Mass/Vol] Negative Negative [facility] Protein [Mass/volume] in Ser um or PlasmaOrdered By: Ari Aguero on 12-11-2022 Protein [Mass/Vol] 7.0 g/dL 6.4-8.9 [facility] RBC Auto (Bld) [#/Vol]Ordere d By: Ari Aguero on 12-11-2022 RBC (Bld) [#/Vol] 4.06 10*6/uL 3.60-5.00 [facility] Salicylates [Mass/volume] in Serum or PlasmaOrdered By: Ari Aguero on 12-11-2022 Salicylates [Mass/Vol] mg/dL 15.0-30.0 [facility] Comment on above: Patients treated wit h Sulfasalazine may generate a false high result for Salicylate. Serum or plasma albumin/glob ulin mass ratioOrdered By: Ari Aguero on 12-11-2022 Albumin/Globulin [Mass ratio] 1.2 {ratio} [facility] Serum or plasma anion gap de terminationOrdered By: Ari Aguero on 12-11-2022 Anion gap [Moles/Vol] 13.3 mmol/L 6.0-15.0 [facility] Sodium [Moles/volume] in Ser um or PlasmaOrdered By: Ari Aguero on 12-11-2022 Sodium [Moles/Vol] 142 mmol/L 136-145 [facility] Specific gravity Auto test s trip (U) [Rel density]Ordered By: Ari Aguero on 12-11-2022 Specific gravity (U) [Rel density] 1.011 1.001-1.030 [facility] Urea nitrogen [Mass/volume] in Serum or PlasmaOrdered By: Ari Aguero on 12-11-2022 Urea nitrogen [Mass/Vol] 7 mg/dL 7-25 [facility] Urine clarity by refractomet ry automatedOrdered By: Ari Aguero on 12-11-2022 Clarity Refractometry automated (U) Clear Clear [facility] Urine glucose measurement by automated test strip (mass/volume)Ordered By: Ari Aguero on 12-11-2022 Glucose Auto test strip (U) [Mass/Vol] Normal mg/dL Normal [facility] Urine hemoglobin detection b y automated test stripOrdered By: Ari Aguero on 12-11-2022 Hemoglobin Auto test strip Ql (U) Negative Negative [facility] Urine leukocyte esterase det ection by automated test stripOrdered By: Ari Aguero on 12-11-2022 Leukocyte esterase Auto test strip Ql (U) Negative Negative [facility] Urobilinogen Auto test strip (U) [Mass/Vol]Ordered By: Ari Aguero on 12-11-2022 Urobilinogen (U) [Mass/Vol] Normal mg/dL Normal [facility] Vaccinationson 12-11-2022 Vaccinations [id number]#[id number] FF Normal [facility] Comment on above: Other Comment: wrong subject Valuables Checkliston 2022 Valuables Checklist [id number]#[id number] FF Normal [facility] WBC Auto (Bld) [#/Vol]Ordere d By: Ari Aguero on 12-11-2022 WBC (Bld) [#/Vol] 3.7 10*3/uL 3.8-11.6 [facility] pH Auto test strip (U)Ordere d By: Ari Aguero on 12-11-2022 pH (U) 6.0 [pH] 5.0-9.0 [facility] Auto Diffon 12-10-2022 Basophils/100 WBC (Bld) 2.2 % High 0.0-2.0 [facility] Comment on above: Order Comment: Order Added by Discern Expert. Performed By: #### 2 575484, 73220594, 62443378, 2238861, 7691542, 06685861, 49156708, 2456656, 7700351, 6803104 ####[address] [place] [address] Basophils/Leukocytes Auto (Bld) [Pure # fraction] 0.1 E9/L Normal 0.0-0.2 [facility] Comment on above: Order Comment: Order Added by Discern Expert. Performed By: #### 2 076223, 03066967, 72095117, 4777974, 7402102, 04077461, 05958360, 9845611, 9935874, 6567897 ####[address] [place] [address] Eosinophils/100 WBC (Bld) 1.5 % Normal 0.0-8.0 [facility] Comment on above: Order Comment: Order Added by Discern Expert. Performed By: #### 2 118782, 23656152, 69633219, 6176748, 9950714, 83223639, 70636794, 3922643, 0226391, 1261560 ####[address] [address] Eosinophils/Leukocyte s Auto (Bld) [Pure # fraction] 0.1 E9/L Normal 0.0-0.5 [facility] Comment on above: Order Comment: Order Added by Discern Expert. Performed By: #### 2 055044, 56421361, 77253094, 0577910, 5963702, 97492220, 86276222, 9084691, 3946887, 3122853 ####[address] [address] Lymphocytes/100 WBC (Bld) 52.9 % High 14.0-50.0 [facility] Comment on above: Order Comment: Order Added by Discern Expert. Performed By: #### 2 348849, 81698144, 12450118, 5005365, 4208104, 37325305, 15757722, 5529115, 4351626, 6631623 ####[address] [place] [address] Lymphocytes/Leukocyte s Auto (Bld) [Pure # fraction] 2.3 E9/L Normal 1.0-4.0 [facility] Comment on above: Order Comment: Order Added by Discern Expert. Performed By: #### 2 633954, 66591622, 65692911, 6962770, 2855160, 53715467, 83042085, 6704195, 8242244, 0993890 ####[facility] [address] [place] [address] Monocytes/100 WBC (Bld) 6.7 % Normal 4.0-14.0 [facility] Comment on above: Order Comment: Order Added by Discern Expert. Performed By: #### 2 942501, 23038530, 90980540, 4825277, 5934120, 21300154, 23576407, 4816038, 8117290, 6105004 ####[address] [address] Monocytes/Leukocytes Auto (Bld) [Pure # fraction] 0.3 E9/L Normal 0.2-1.0 [facility] Comment on above: Order Comment: Order Added by Radha Expert. Performed By: #### 2 171466, 32523001, 51430544, 9042481, 9504096, 00749128, 90326831, 3050957, 0323600, 5299166 ####[address] [address] Neutrophils/100 WBC (Bld) 36.7 % Normal 36.0-75.0 [facility] Comment on above: Order Comment: Order Added by Discern Expert. Performed By: #### 2 298957, 91861533, 47072231, 5038046, 8817240, 31293534, 99991846, 9929675, 6205352, 3766098 ####[address] [place] [address] Neutrophils/Leukocyte s Auto (Bld) [Pure # fraction] 1.6 E9/L Low 2.0-7.5 [facility] Comment on above: Order Comment: Order Added by Discern Expert. Performed By: #### 2 379885, 83451758, 70341823, 3735203, 6854068, 10957312, 11237791, 7547813, 5042286, 8810650 ####[facility] [address] [place] [address] B hCG Qualon 12-10-2022 Beta hCG Ql Negative Normal [facility] Comment on above: Performed By: #### 2 369845, 07387940, 94895030, 1294066, 4949225, 91203862, 74306282, 6101503, 0478878, 4645684 ####[facility] [address] [place] [address] BMPon 12-10-2022 Creatinine [Mass/Vol] 0.6 mg/dL Normal 0.5-1.3 [facility] Comment on above: Performed By: #### 2 153160, 95645937, 33737697, 1271841, 9435490, 57992105, 03797289, 8210999, 4603100, 1028017 ####[facility] [address] [place] [address] Urea nitrogen [Mass/Vol] 6 mg/dL Normal 5-21 [facility] Comment on above: Performed By: #### 2 199416, 91429202, 27254344, 9057229, 2989373, 48710807, 85386756, 1045260, 5759059, 5854660 ####[facility] [address] [place] [address] Urea nitrogen/Creatinine [Mass ratio] 10 No Units Normal 10-20 [facility] Comment on above: Performed By: #### 2 626298, 18683699, 97695073, 3799949, 2802270, 95645810, 17953878, 9056332, 1140930, 4195586 ####[facility] [address] [place] [address] Anion gap [Moles/Vol] 14 mmol/L Normal 6-16 [facility] Comment on above: Performed By: #### 2 674363, 50802089, 25709869, 1394339, 4027741, 89180114, 06455421, 2172587, 0536527, 3536377 ####[facility] [address] [place] [address] Calcium [Mass/Vol] 8.8 mg/dL Low 8.9-11.1 [facility] Comment on above: Performed By: #### 2 232016, 61685110, 94396147, 3160652, 6288443, 92948519, 28047121, 0108111, 7477306, 9942484 ####[facility] [address] [place] [address] Chloride [Moles/Vol] 104 mmol/L Normal 101-111 [facility] Comment on above: Performed By: #### 2 546032, 32851147, 50248316, 4004734, 9437029, 75039414, 36498826, 8908978, 8603938, 8494257 ####[facility] [address] [place] [address] CO2 [Moles/Vol] 25 mmol/L Normal 21-31 [facility] Comment on above: Performed By: #### 2 259897, 62339870, 59229388, 6735757, 3313826, 35496682, 74568218, 9193321, 2413755, 4796653 ####[facility] [address] [place] [address] Glucose [Mass/Vol] 92 mg/dL Normal 55-199 [facility] Comment on above: Result Comment: If t his glucose result represents a fasting glucose, interpretation should refer to the following reference range: 55-99 mg/dL Performed By: #### 2 090599, 96410186, 96379891, 3258694, 9458262, 72289453, 45889731, 5501492, 2822434, 8385874 ####[facility] [address] [place] [address] Potassium [Moles/Vol] 3.9 mmol/L Normal 3.5-5.3 [facility] Comment on above: Performed By: #### 2 995395, 13632620, 45326948, 3370225, 2829600, 18406400, 60800105, 7328789, 6150050, 0865986 ####[facility] [address] [place] [address] Sodium [Moles/Vol] 139 mmol/L Normal 135-145 [facility] Comment on above: Performed By: #### 2 038772, 44622143, 19736453, 1232871, 1648436, 42839317, 20783914, 2257883, 0414760, 1815750 ####[facility] [address] [place] [address] CBC w/ Auto Diffon 3 Erythrocyte distribution width (RBC) [Ratio] 14.6 % High 10.9-14.2 [facility] Comment on above: Performed By: #### 2 215994, 84261311, 49692290, 5168501, 7552620, 95968371, 55155130, 8310794, 1310226, 9246348 ####[facility] [address] [place] [address] Hematocrit (Bld) [Volume fraction] 47.1 % High 34.0-46.0 [facility] Comment on above: Performed By: #### 2 952249, 76186785, 46628149, 9047871, 8781642, 89188278, 03680541, 3828409, 3755709, 8043610 ####[facility] [address] [place] [address] Hemoglobin (Bld) [Mass/Vol] 16.1 g/dL High 12.0-16.0 [facility] Comment on above: Performed By: #### 2 633537, 47180589, 08639278, 6056432, 0831668, 58205444, 50746522, 6621073, 8227683, 2424961 ####[facility] [address] [place] [address] MCH (RBC) [Entitic mass] 33.9 pg Normal 27.0-34.0 [facility] Comment on above: Performed By: #### 2 725933, 70999546, 48403897, 6531990, 5907793, 88568501, 90220947, 4339326, 7375279, 0715474 ####[address] [place] [address] MCHC (RBC) [Mass/Vol] 34.3 g/dL Normal 31.4-36.0 [facility] Comment on above: Performed By: #### 2 896367, 23835353, 79012931, 8543793, 9103936, 87674558, 73139264, 6488433, 8346577, 0383853 ####[address] [address] MCV (RBC) [Entitic vol] 98.9 fL Normal 80.0-100.0 [facility] Comment on above: Performed By: #### 2 256022, 92533065, 64741868, 5827193, 6922486, 56495715, 23708098, 0034933, 4750053, 7611713 ####[address] [address] Platelet mean volume (Bld) [Entitic vol] 8.2 fL Normal 6.4-10.8 [facility] Comment on above: Performed By: #### 2 798257, 97711591, 73623293, 7122695, 7531550, 19979546, 20931424, 1096318, 8382595, 6188764 ####[address] [address] Platelets (Bld) [#/Vol] 144.0 E9/L Low 150.0-500.0 [facility] Comment on above: Performed By: #### 2 736200, 98025221, 07127519, 8985691, 2126345, 11618848, 82208047, 7650238, 5066103, 3728473 ####[facility] [address] [place] [address] RBC (Bld) [#/Vol] 4.8 E12/L Normal 4.3-5.9 [facility] Comment on above: Performed By: #### 2 872807, 70114686, 49745252, 0864548, 6291359, 36010474, 76150644, 3150677, 9808039, 0125509 ####[facility] [address] [place] [address] WBC corrected for nucl RBC Auto (Bld) [#/Vol] 4.4 E9/L Normal 4.0-11.0 [facility] Comment on above: Result Comment: Slid e reviewed by AG. Performed By: #### 2 853530, 86966639, 72700344, 0602062, 5232594, 49526798, 81312611, 6735963, 5802158, 0551415 ####[facility] [address] [place] [address] CHEMISTRYOrdered By: SYSTEM SYSTEM on 12-10-2022 Ethanol [Mass/Vol] 327 mg/dL Invalid Interpretation Code <=7mg/dL [facility] Comment on above: Result Comment: Crit ical Result verified by repeat analysis\Critical Result S_ETOH:327.0 Called to YON JENKINS AT ER by LEXI LARA And Read Back For Confirmation at: 12/10/2022 [...] alternate method\Critical Result UD_BENZ:POS Called to CHILO FUNES AT ER by PERICO GOULD And Read [...] Sensitivity Troponin I Instructions For Use, [employer], September 2017) Albumin [Mass/Vol] 4.2 g/dL Normal [...] 124 mL/min/1.73 m2 Normal >=59mL/min/1 .73 m2 [facility] Chem S Comment on above: Interpretive Data: C hronic kidney disease could be indicated at eGFR's of less than 60 mL/min/1.73m2. Kidney failure is indicated at less than 15 mL/min/1.73m2. Globulin (S) [Mass/Vol] 4.6 g/dL High 1.4 - 4.0 gm/dL [facility] Glucose [Mass/Vol] 92 mg/dL Normal 55 - 199 mg/dL [facility] Comment on above: Interpretive Data: I f this glucose result represents a fasting glucose, interpretation should refer to the following reference range: 55-99 mg/dL Lipase [Catalytic activity/Vol] 46 U/L Normal 13 - 58 unit/L [facility] Magnesium [Mass/Vol] 1.9 mg/dL Normal 1.3 - 2 .4 mg/dL [facility] Potassium [Moles/Vol] 3.9 mmol/L Normal 3.5 - 5.3 mmol/L [facility] Protein [Mass/Vol] 8.8 g/dL High 6.0 - 7.8 gm/dL [facility] Sodium [Moles/Vol] 139 mmol/L Normal 135 - 145 mmol/L [facility] Troponin I.cardiac [Mass/Vol] 5.70 pg/mL Low 10.10 - 27.10 pg/mL [facility] Comment on above: Interpretive Data: T he 95% CI (Confidence Interval) PPV (Positive Predictive Value) for myocardial infarction in females is 38 pg/mL, in males 51 pg/mL. The results should be used in conjunction with clinical conditions of myocardial infarction. (Access High Sensitivity Troponin I Instructions For Use, [employer], September 2017) Urea nitrogen [Mass/Vol] 6 mg/dL Normal 5 - 21 mg/dL [facility] Urea nitrogen/Creatinine [Mass ratio] 10 mg/mg Normal 10 - 20 [facility] COAGULATIONOrdered By: Russell Lorenzo on 12-10-2022 aPTT Coag (PPP) [Time] 42.2 s High 25.1 - 36.5 second(s) [facility] [place] Auto Coag Comment on above: Interpretive Data: [...] the same coagulation reagent and instrumentation as [facility] [place]. Currently there are no coagulation studies available worldwide for children to 14 days, and no normal ranges. Heparin therapeutic range (represented by Anti-Factor Xa activity of 0.2 - 0.4 U/mL) corresponds to PTT of 56.6 - 109.0 sec. INR Coag (PPP) [Relative time] 1.2 {INR} Invalid Interpretation Code [facility] Auto Coag Comment on above: Interpretive Data: I NR results are specifically intended to assess patients stabilized on long-term Anticoagulation therapy suggested INR s Less Intensive Anticoagulation 2.0 3.0 Conventional Range 3.0 4.5 PT Coag (PPP) [Time] 12.8 s High 9.4 - 1 2.5 second(s) [facility] Auto Coag Comment on above: Interpretive Data: [...] the same coagulation reagent and instrumentation as [facility] [place]. Currently there are no coagulation studies available worldwide for children to 14 days, and no normal ranges. Consent for Treatmenton 11-13 Consent for Treatment [id number]#1.00TIF F [facility] Consent for Treatment [id number]#1.00TIF F [facility] Discharge Instructionson Discharge Instructions [id number]#1.00TIF F [facility] ED Clinical Summaryon 2022 ED Clinical Summary Normal [facility] ED Clinical Summary Normal [facility] ED Note-Nursingon 12-10-2022 ED Note-Nursing Patient belongings viktor monroy from patient after patient asked staff if I can take the Ativan i have in my purse . When purse was taken, vodka, nail danish remover and mouth wash taken from patient at this time. Normal [facility] ED Note-Physicianon 12-11-19 ED Note-Physician Normal [facility] Comment on above: Result Comment: Elec tronically Signed By: Darren Guzman DO\.br\Date and Time Signed: 12/10/22 21:40 EDT ED Note-Physician Normal [facility] Comment on above: Result Comment: Elec tronically Signed By: Fabricio Gao PA-C\.br\Date and Time Signed: 12/10/22 18:31 EDT\.br\Electronically Co-Signed By: Eric Forbes DO\.br\Date and Time Co-Signed: 12/10/22 18:37 EDT ED Note-Physician Normal [facility] Comment on above: Result Comment: Elec tronically Signed By: Eric Forbes DO\.br\Date and Time Signed: 12/10/22 11:43 EDT ED Patient Education Noteon 12-10-2022 ED Patient Education Note Normal [facility] ED Patient Education Note Normal [facility] ED Patient Summaryon 023 ED Patient Summary Normal [facility] ED Patient Summary Normal [facility] Ethanolon 12-10-2022 Ethanol [Mass/Vol] 327 mg/dL Abnormal <=7 [facility] Comment on above: Result Comment: Crit ical Result verified by repeat analysis\Critical Result S_ETOH:327.0 Called to OYN JENKINS AT ER by LEXI LARA And Read Back For Confirmation at: 12/10/2022 18:58:35 Performed By: #### 2 576758 ####[facility] [address] [place] [address] Ethanol [Mass/Vol] 277 mg/dL Abnormal <=7 [facility] Comment on above: Result Comment: Crit ical Result verified by repeat analysis\Critical Result S_ETOH:277.0 Called to MANFRED RAUSCH AT ER by PERICO GOULD And Read Back For Confirmation at: 12/10/2022 09:05:13 Performed By: #### 2 931264 ####[facility] [address] [place] [address] HEMATOLOGYOrdered By: SYSTEM SYSTEM on 12-10-2022 Basophils/100 [...] 7.5 E9/L [facility] HemeAutoSS HEMATOLOGYOrdered By: Ernesto Rice on 12-10-2022 Erythrocyte distribution width (RBC) [Ratio] [...] above: Result Comment: Slid e reviewed by [facility] Panelon 12-10-2022 AST [Catalytic activity/Vol] 364 Int._Unit/L High 5-43 [facility] Comment on above: Performed By: #### 2 245088, 49489264, 94432730, 4209914, 9821237, 66113555, 00234126, 4672995, 8472909, 8177576 ####[facility] [address] [place] [address] Albumin [Mass/Vol] 4.2 g/dL Normal 3.3-5.0 [facility] Comment on above: Performed By: #### 2 464072, 31528525, 26385394, 7490526, 2101883, 90084837, 61181919, 5711481, 0582108, 5574899 ####[facility] [address] [place] [address] Albumin/Globulin (S) [Mass conc ratio] 0.9 Low 1.1-2.2 [facility] Comment on above: Performed By: #### 2 028531, 19323961, 21995726, 4123740, 8531079, 48801740, 60620199, 0458533, 5674816, 1531359 ####[facility] [address] [place] [address] ALP [Catalytic activity/Vol] 171 Int._Unit/L High 21-98 [facility] Comment on above: Performed By: #### 2 734789, 57454538, 71827318, 7710407, 4530414, 35695490, 22615682, 0889627, 9162012, 4009036 ####[facility] [address] [place] [address] ALT No additional P-5'-P [Catalytic activity/Vol] 192 Int._Unit/L [facility] 6-46 [facility] Comment on above: Performed By: #### 2 450569, 54876945, 60223991, 1235435, 2582236, 48065136, 20580958, 7486791, 5037903, 1955325 ####[address] Bilirubin [Mass/Vol] 0.8 mg/dL Normal 0.0-1.1 [facility] Comment on above: Performed By: #### 2 560979, 93278181, 25100713, 2209631, 2504287, 45250609, 10873454, 0172754, 9940451, 0722100 ####[address] [place] [address] Bilirubin.direct [Mass/Vol] 0.3 mg/dL Normal 0.1-0.4 [facility] Comment on above: Performed By: #### 2 719661, 50371843, 05200228, 1771794, 1406726, 64753942, 61646611, 7304993, 5149870, 7706760 ####[address] [place] [address] Bilirubin.indirect [Mass or moles/Vol] 0.5 mg/dL Normal 0.1-0.9 [facility] Comment on above: Performed By: #### 2 327142, 29915943, 91449823, 0260898, 6901633, 10099797, 64482966, 5567529, 1283155, 6618684 ####[facility] [address] [place] [address] Globulin (S) [Mass/Vol] 4.6 g/dL High 1.4-4.0 [facility] Comment on above: Performed By: #### 2 040951, 09576940, 19872556, 2379231, 4426702, 44612118, 47232718, 2609192, 1336633, 6248653 ####[facility] [address] [place] [address] Protein [Mass/Vol] 8.8 g/dL High 6.0-7.8 [facility] Comment on above: Performed By: #### 2 569121, 78973710, 59702592, 5723623, 5430255, 21489502, 89838489, 4381745, 2940522, 2884521 ####[facility] [address] [place] [address] Lipase Levelon 12-10-2022 Lipase [Catalytic activity/Vol] 46 U/L Normal 13-58 [facility] Comment on above: Performed By: #### 2 851891, 40568002, 38968791, 5826495, 1667096, 16409730, 06231803, 9911537, 1785434, 7748889 ####[facility] [address] [place] [address] Magnesiumon 12-10-2022 Magnesium [Mass/Vol] 1.9 mg/dL Normal 1.3-2.4 [facility] Comment on above: Performed By: #### 2 135832, 56846977, 61107754, 8956919, 3764680, 93070298, 13465073, 0179954, 2192868, 8583633 ####[facility] [address] [place] [address] Monitor Recordon 12-10-2022 Monitor Record [id number] FF Normal [facility] PT & PTTon 12-10-2022 aPTT Coag (PPP) [Time] 42.2 second(s) High 25.1-36.5 [facility] Comment on above: Order Comment: Nurse is starting IV and pull labs 12/10/2022 08:12:05 EDT [id number] Result Comment: Para meter 15 days - [...] the same coagulation reagent and instrumentation as [facility] [place]. Currently there are no coagulation studies available worldwide for children to 14 days, and no normal ranges. Heparin therapeutic range (represented by Anti-Factor Xa activity of 0.2 - 0.4 U/mL) corresponds to PTT of 56.6 - 109.0 sec. Performed By: #### 2 415043, 99238968, 76493540, 9723709, 0150909, 13121798, 55046025, 0685317, 4294313, 1062214 ####[facility] [address] [place] [address] INR Coag (PPP) [Relative time] 1.2 {INR} Invalid Interpretation Code [facility] Comment on above: Order Comment: Nurse is starting IV and pull labs 12/10/2022 08:12:05 EDT [id number] Result Comment: INR results are specifically intended to assess patients stabilized on long-term Anticoagulation therapy suggested INR?s ?Less Intensive Anticoagulation? 2.0 ? 3.0Conventional Range 3.0 ? 4.5 Performed By: #### 2 180656, 46737310, 59672306, 1719055, 9421057, 66028407, 74951363, 6874013, 0593544, 6242944 ####[facility] [address] [place] [address] PT Coag (PPP) [Time] 12.8 second(s) High 9.4-12.5 [facility] Comment on above: Order Comment: Nurse is starting IV and pull labs 12/10/2022 08:12:05 EDT [id number] Result Comment: 15 d ays - 4 [...] the same coagulation reagent and instrumentation as [facility]. Currently there are no coagulation studies available worldwide for children to 14 days, and no normal ranges. Performed By: #### 2 851834, 08175956, 41041508, 5117700, 4346191, 47231515, 56519219, 0633878, 7692366, 3627913 ####[facility] [address] [place] [address] SEROLOGYOrdered By: Annie Lorenzo on 12-10-2022 Beta hCG Ql Negative (12/10/22 8:23 AM) Normal [facility] Man Sero Troponin 0 Hr.on 12-10-2022 Troponin I.cardiac [Mass/Vol] 5.70 pg/mL Low 10.10-27.10 [facility] Comment on above: Result Comment: The 95% CI (Confidence Interval) PPV (Positive Predictive Value) for myocardial infarction in females is 38 pg/mL, in males 51 pg/mL. The results should be used in conjunction with clinical conditions of myocardial infarction.(Access High Sensitivity Troponin I Instructions For Use, [employer], September 2017) Performed By: #### 2 006454, 17764691, 27667213, 8478469, 7786423, 07115443, 62632077, 3107064, 5634437, 7354918 ####[facility] [address] [place] [address] Troponin 3 Hr.on 12-10-2022 Troponin I.cardiac [Mass/Vol] 6.00 pg/mL Low 10.10-27.10 [facility] Comment on above: Result Comment: The 95% CI (Confidence Interval) PPV (Positive Predictive Value) for myocardial infarction in females is 38 pg/mL, in males 51 pg/mL. The results should be used in conjunction with clinical conditions of myocardial infarction.([employer] High Sensitivity Troponin I Instructions For Use, [employer], September 2017) Performed By: #### 1 [id number] ####[place] [address] U Drug Screenon 12-10-2022 Benzodiazepines Ql (U) Positive Abnormal Negative [facility] Comment on above: Result Comment: No c onfirmation requested by Physican\Results verified by repeat analysis\Unconfirmed by alternate method\Critical Result UD_BENZ:POS Called to CHILO FUNES AT ER by PERICO GOULD And Read Back For Confirmation at: 12/10/2022 11:50:16Negative Cutoff: <200 ng/mL Performed By: #### 2 147002 ####[address] [address] Amphetamines Screen method >1000 ng/mL Ql (U) Negative Normal Negative [facility] Comment on above: Result Comment: Nega tive Cutoff: <1000 ng/mL Performed By: #### 2 888551 ####[address] [address] Barbiturates Screen Ql (U) Negative Normal Negative [facility] Comment on above: Result Comment: Nega tive Cutoff: <200 ng/mL Performed By: #### 2 917886 ####[address] [place] [address] Cocaine Ql (U) Negative Normal Negative [facility] Comment on above: Result Comment: Nega tive Cutoff: <300 ng/mL Performed By: #### 2 [id number] ####[facility] [address] [place] [address] Opiates Screen Ql (U) Negative Normal Negative Fis [facility] Comment on above: Result Comment: Nega tive Cutoff: <300 ng/mL Performed By: #### 2 761757 ####[address] [address] Phencyclidine Screen method >25 ng/mL Ql (U) Negative Normal Negative [facility] Comment on above: Result Comment: Nega tive Cutoff: <25 ng/mLThese drug screen results are to be used for medical (i.e., treatment) purposes only. Unconfirmed drug screening results must not be used for non-medical purposes (e.g., employment testing, legal testing). Performed By: #### 2 892410 ####[address] [place] [address] Tetrahydrocannabinol Screen method >50 ng/mL Ql (U) Negative Normal Negative [facility] Comment on above: Result Comment: Nega tive Cutoff: <50 ng/mL Performed By: #### 2 531274 ####[address] [place] [address] UA With Cult Reflexon 2022 Bilirubin Ql (U) 1+ Abnormal Negative [facility] Comment on above: Performed By: #### 1 5540714 ####[facility] [address] [place] [address] Clarity (U) CLOUDY Abnormal Clear [facility] Comment on above: Performed By: #### 1 1235495 ####[facility] [address] [place] [address] Color (U) DARK YELLO Abnormal Yellow [facility] Comment on above: Performed By: #### 1 1284721 ####[address] [place] [address] Crystals LM Ql (Urine sed) Present Normal [facility] Comment on above: Performed By: #### 1 8531963 ####[address] [address] Epithelial cells.squamous LM.HPF (Urine sed) [#/Area] 9-10 Normal 0-2 [facility] Comment on above: Performed By: #### 1 7198700 ####[facility] [address] [place] [address] Glucose Test strip (U) [Mass/Vol] Negative Normal Negative [facility] Comment on above: Performed By: #### 1 6890498 ####[address] [address] Hemoglobin Ql (U) 3+ Abnormal Negative [facility] Comment on above: Performed By: #### 1 6361296 ####[address] [address] Ketones (U) [Mass/Vol] TRACE Invalid Interpretation Code Negative [facility] Comment on above: Performed By: #### 1 6581379 ####[address] [address] [place].plasma/Lithiu m.RBC (Bld) [Mass ratio] 0-3 Normal 0-3 [facility] Comment on above: Performed By: #### 1 9739624 ####[facility] [address] [place] [address] Nitrite Ql (U) Negative Normal Negative [facility] Comment on above: Performed By: #### 1 7879419 ####[address] [address] pH (U) 7.0 [pH] Invalid Interpretation Code 5.0-9.0 [facility] Comment on above: Performed By: #### 1 1624095 ####[address] [address] Protein (U) [Mass/Vol] 2+ Abnormal Negative [facility] Comment on above: Performed By: #### 1 2075470 ####[facility] [address] [place] [address] Specific gravity (U) [Rel density] 1.015 Invalid Interpretation Code 1.005-1.030 [facility] Comment on above: Performed By: #### 1 5225689 ####[facility] [address] [place] [address] Type of Urine collection method Clean Catch Normal [facility] Comment on above: Performed By: #### 1 8508355 ####[facility] [address] [place] [address] Urobilinogen Qn (U) >=8.0 Abnormal 0.0-1.0 [facility] vasquez [facility] Comment on above: Performed By: #### 1 4631671 ####[address] [address] WBC Auto Ql (U) Negative Normal Negative [facility] Comment on above: Performed By: #### 1 8600204 ####[facility] [address] [place] [address] WBC LM.HPF (Urine sed) [#/Area] 0-5 Normal 0-5 [facility] Comment on above: Performed By: #### 1 6029782 ####[facility] [address] [place] [address] URINALYSISOrdered By: Zakiya Lorenzo on 12-10-2022 Bilirubin Ql (U) 1+ *ABN* (12/10/22 11:15 AM) Invalid Interpretation Code Negative [facility] UA Auto SS Clarity (U) Cloudy *ABN* (12/10/22 11:15 AM) Invalid Interpretation Code Clear [facility] UA Auto SS Color (U) Dark Yellow *ABN* (12/10/22 11:15 AM) Invalid Interpretation Code Yellow [facility] UA Auto SS Crystals LM Ql (Urine sed) Present (12/10/22 11:15 AM) Normal FT UA Auto SS Epithelial [...] Interpretation Code Negative [facility] UA Auto SS [place].plasma/Lithiu m.RBC (Bld) [Mass ratio] 0-3 /HPF Normal [...] 12-10 XR Chest Single View Normal [facility] eGFRon 12-10-2022 GFR/1.73 sq M.predicted among non-blacks MDRD (S/P/Bld) [Vol rate/Area] 124 mL/min/1.73 m2 Normal >=59 [facility] Comment on above: Order Comment: Order added by Discern Expert. Result Comment: Bead Picker justin kidney disease could be indicated at eGFR's of less than 60 mL/min/1.73m2. Kidney failure is indicated at less than 15 mL/min/1.73m2. Performed By: #### 2 449643, 04293831, 83917598, 8286175, 4748016, 51127727, 76325204, 9450718, 0197649, 7661215 ####[facility] [address] [place] [address] Consenton 12-03-2022 Consent [id number] FF Normal [facility] C Urineon 12-02-2022 Bacteria identified Cx Nom (U) Normal [facility] Comment on above: Performed By: #### 2 966220 ####[facility] [address] [place] [address] Family Medicine Office/Clini c Noteon 11-30-2022 Family Medicine Office/Clinic Note Normal [facility] Comment on above: Result Comment: Elec tronically Signed By: ANA HARO, CARRIE\.br\Date and Time Signed: 11/30/22 14:01 EDT Patient Educationon 12-01-19 Patient Education Normal [facility] DHEASon 11-20-2022 DHEA-S [Mass/Vol] 35.7 microgram/dL Low 84.8-378.0 [facility] Comment on above: Result Comment: Perf ormed at: [facility] [address] [id number] PhD Sriram Arceo Performed By: #### 2 336686, 9626139, 108871868, 7319746, 630259717, 36863669, 28265683 ####[facility] [address] [place] [address] Estradiolon 11-20-2022 E2 [Mass/Vol] 85.0 pg/mL Invalid Interpretation Code [facility] Comment on above: Result Comment: Adul t Female:Follicular phase 12.5 - 166.0Ovulation phase 85.8 - 498.0Luteal phase 43.8 - 211.0Postmenopausal <6.0 - 54.7Dkabpfhuh8bi trimester 215.0 - >4300.0Roche ECLIA methodologyPerformed at: [facility] [place], [place] [id number] PhD Sriram Arceo Performed By: #### 2 695061, 4136653, 634356454, 1053444, 558102001, 00977183, 95323260 ####[facility] [address] [place] [address] FSHon 11-20-2022 Follitropin Qn 10.0 m[IU]/mL Invalid Interpretation Code [facility] Comment on above: Result Comment: Adul t Female:Follicular phase 3.5 - 12.5Ovulation phase 4.7 - 21.5Luteal phase 1.7 - 7.7Postmenopausal 25.8 - 134.8Performed at: [address] [id number] PhD Sriram Arceo Performed By: #### 2 803587, 5695900, 282237729, 1893427, 225340399, 56356789, 80588929 ####[facility] [address] [place] [address] HIV Screen 4th Generation wR fxon 11-20-2022 HIV 1+2 Ab+HIV1 p24 Ag IA Ql Non-Reactive Invalid Interpretation Code Non Reactive [facility] Comment on above: Result Comment: HIV NegativeHIV-1/HIV-2 antibodies and HIV-1 p24 antigen were NOT detected.There is no laboratory evidence of HIV infection.Performed at: [facility] [place], [place] [id number] PhD Sriram Arceo Performed By: #### 2 714344, 7957326, 437611681, 3018220, 295190338, 38962259, 82593328 ####[facility] [address] [place] [address] Hep Bs Agon 11-20-2022 HBV surface Ag IA Ql Negative Invalid Interpretation Code Negative [facility] Comment on above: Result Comment: Perf ormed at: [address] [id number] PhD Sriram Arceo Performed By: #### 2 778013, 6865370, 823707398, 7579542, 819120123, 62313540, 64193656 ####[facility] [address] [place] [address] Testosterone F&Ton Testosterone [Mass/Vol] 40 ng/dL Invalid Interpretation Code [facility] Comment on above: Performed By: #### 2 877728, 5613486, 684356295, 2462465, 375249522, 20773420, 68242595 ####[address] [place] [address] Testosterone Free [Mass/Vol] 0.8 pg/mL Invalid Interpretation Code 0.0-4.2 [facility] Comment on above: Result Comment: Perf ormed at: [facility] [address] [place], [place] [id number] PhD Sriram ArceoPerformed at: [facility] [id number] MD Dimitris Maher Performed By: #### 2 502376, 8964949, 901445379, 0925773, 877538428, 65464508, 73738263 ####[facility] [address] [place] [address] Thyroid Perox.tpo Abon 11-16 TPO Ab Qn 15 International_Unit/mL Invalid Interpretation Code 0-34 [facility] Comment on above: Result Comment: Perf ormed at: [facility] [place], [place] [id number] PhD Sriram Arceo Performed By: #### 3 1323910, 19304662, 39871604 ####[address] [place] [address] WRITTEN AUTHORIZATIONon Written Authorization Comment Invalid Interpretation Code [facility] Comment on above: Result Comment: Writ ten Authorization Received.Authorization received from ORIGINAL ORDER [id number] by Rodrick Marshall at: [facility] [address] [place], [place] [id number] PhD Sriram Arceo Performed By: #### 3 3603529, 26162742, 59194566 ####[facility] [address] CHEMISTRYOrdered By: SYSTEM SYSTEM on 11-14-2022 Amphetamines [...] <50 ng/mL Physician Orderon 11-14-2022 Physician Order [id number]#1.00CD :127 Normal [facility] RPR with Conf Rfxon 11-15-19 Reagin Ab RPR Ql (S) Non-Reactive Invalid Interpretation Code Non Reactive [facility] Comment on above: Result Comment: Perf ormed at: [facility] [address] [id number] PhD Sriram Arceo Performed By: #### 2 136110, 1504449, 099081056, 2360855, 624160581, 67348950, 04198038 ####[facility] [address] [place] [address] U Drug Screenon 11-14-2022 Amphetamines Screen method >1000 ng/mL Ql (U) Negative Normal Negative [facility] Comment on above: Result Comment: Nega tive Cutoff: <1000 ng/mL Performed By: #### 2 126068 ####[facility] [address] [place] [address] Barbiturates Screen Ql (U) Negative Normal Negative [facility] Comment on above: Result Comment: Nega tive Cutoff: <200 ng/mL Performed By: #### 2 602328 ####[facility] [address] [place] [address] Benzodiazepines Ql (U) Negative Normal Negative [facility] Comment on above: Result Comment: Nega tive Cutoff: <200 ng/mL Performed By: #### 2 878348 ####[facility] [address] [place] [address] Cocaine Ql (U) Negative Normal Negative [facility] Comment on above: Result Comment: Nega tive Cutoff: <300 ng/mL Performed By: #### 2 235263 ####[facility] [address] [place] [address] Opiates Screen Ql (U) Negative Normal Negative Fis [facility] Comment on above: Result Comment: Nega tive Cutoff: <300 ng/mL Performed By: #### 2 607295 ####[facility] [address] [place] [address] Phencyclidine Screen method >25 ng/mL Ql (U) Negative Normal Negative [facility] Comment on above: Result Comment: Nega tive Cutoff: <25 ng/mLThese drug screen results are to be used for medical (i.e., treatment) purposes only. Unconfirmed drug screening results must not be used for non-medical purposes (e.g., employment testing, legal testing). Performed By: #### 2 897840 ####[facility] [address] [place] [address] Tetrahydrocannabinol Screen method >50 ng/mL Ql (U) Negative Normal Negative [facility] Comment on above: Result Comment: Nega tive Cutoff: <50 ng/mL Performed By: #### 2 596303 ####[facility] [address] [place] [address] CHEMISTRYOrdered By: SYSTEM SYSTEM on 11-13-2022 TSH Qn 1.86 m[IU]/L Normal 0.34 - 5.60 mcIU/mL [facility] Remisol Consent for Treatmenton Consent for Treatment [id number]#1.00CD: 127 Normal [facility] Consent for Treatment [id number]#1.00CD: 127 Normal [facility] Physician Orderon 11-13-2022 Physician Order [id number]#1.00CD :127 Normal [facility] Physician Order [id number]#1.00CD :127 Normal [facility] TSH With T4fr Reflexon 11-13 TSH Qn 1.86 m[IU]/L Normal 0.34-5.60 [facility] Comment on above: Performed By: #### 3 5146602, 82535615, 91187345 ####[facility] [address] [place] [address] Consent for Treatmenton Consent for Treatment [id number]#1.00CD:1 27 Normal [facility] Discharge Instructionson Discharge Instructions [id number]#1.00CD: 127 Normal [facility] ED Clinical Summaryon 2022 ED Clinical Summary Normal [facility] ED Note-Physicianon 11-12-19 ED Note-Physician Normal [facility] Comment on above: Result Comment: Elec tronically Signed By: Elliott Hicks PA-C\.br\Date and Time Signed: 11/11/22 11:36 EDT\.br\Electronically Co-Signed By: Isai Hall DO\.br\Date and Time Co-Signed: 11/11/22 13:15 EDT ED Patient Education Noteon 11-11-2022 ED Patient Education Note Normal [facility] ED Patient Summaryon 023 ED Patient Summary Normal [facility] Pre-Arrival Noteon Pre-Arrival Note Normal [facility] Auto Diffon 11-04-2022 Basophils/100 WBC (Bld) 0.8 % Normal 0.0-2.0 [facility] Comment on above: Order Comment: Order Added by Radha Expert. Performed By: #### 1 5583460, 0526860, 3624086, 5154847 ####[facility] [address] [place] [address] Basophils/Leukocytes Auto (Bld) [Pure # fraction] 0.0 E9/L Normal 0.0-0.2 [facility] Comment on above: Order Comment: Order Added by Radha Expert. Performed By: #### 1 0114015, 1151735, 7806363, 2698419 ####[facility] [address] [place] [address] Eosinophils/100 WBC (Bld) 1.1 % Normal 0.0-8.0 [facility] Comment on above: Order Comment: Order Added by Discern Expert. Performed By: #### 1 3852163, 0727144, 8439483, 6421031 ####[address] [place] [address] Eosinophils/Leukocyte s Auto (Bld) [Pure # fraction] 0.0 E9/L Normal 0.0-0.5 [facility] Comment on above: Order Comment: Order Added by Discern Expert. Performed By: #### 1 7268964, 5712231, 8368793, 5004274 ####[address] [address] Lymphocytes/100 WBC (Bld) 40.7 % Normal 14.0-50.0 [facility] Comment on above: Order Comment: Order Added by Radha Expert. Performed By: #### 1 7329148, 6530929, 3886049, 8412729 ####[address] [address] Lymphocytes/Leukocyte s Auto (Bld) [Pure # fraction] 1.6 E9/L Normal 1.0-4.0 [facility] Comment on above: Order Comment: Order Added by Radha Expert. Performed By: #### 1 9142689, 2644936, 6741739, 1992713 ####[address] [address] Monocytes/100 WBC (Bld) 6.9 % Normal 4.0-14.0 [facility] Comment on above: Order Comment: Order Added by Radha Expert. Performed By: #### 1 4814201, 5957632, 1808810, 2718263 ####[address] [place] [address] Monocytes/Leukocytes Auto (Bld) [Pure # fraction] 0.3 E9/L Normal 0.2-1.0 [facility] Comment on above: Order Comment: Order Added by Radha Expert. Performed By: #### 1 3028618, 9106235, 6347806, 1219022 ####[address] [address] Neutrophils/100 WBC (Bld) 50.5 % Normal 36.0-75.0 [facility] Comment on above: Order Comment: Order Added by Discern Expert. Performed By: #### 1 1927457, 0332485, 8693095, 6296802 ####[facility] [address] [place] [address] Neutrophils/Leukocyte s Auto (Bld) [Pure # fraction] 2.0 E9/L Normal 2.0-7.5 [facility] Comment on above: Order Comment: Order Added by Discern Expert. Performed By: #### 1 4172510, 4172549, 1994332, 5795312 ####[facility] [address] [place] [address] BMPon 11-04-2022 Creatinine [Mass/Vol] 0.6 mg/dL Normal 0.5-1.3 [facility] Comment on above: Performed By: #### 1 6514432, 1139529, 8209262, 2020410 ####[facility] [address] [place] [address] Urea nitrogen [Mass/Vol] 7 mg/dL Normal 5-21 [facility] Comment on above: Performed By: #### 1 9761188, 0031741, 2389235, 3002253 ####[facility] [address] [place] [address] Urea nitrogen/Creatinine [Mass ratio] 12 No Units Normal 10-20 [facility] Comment on above: Performed By: #### 1 1923957, 4693015, 2966849, 9588745 ####[facility] [address] [place] [address] Anion gap [Moles/Vol] 9 mmol/L Normal 6-16 [facility] Comment on above: Performed By: #### 1 8203044, 4524684, 8531167, 3678523 ####[facility] [address] [place] [address] Calcium [Mass/Vol] 9.0 mg/dL Normal 8.9-11.1 [facility] Comment on above: Performed By: #### 1 3084334, 1171958, 9491273, 2395703 ####[facility] [address] [place] [address] Chloride [Moles/Vol] 105 mmol/L Normal 101-111 [facility] Comment on above: Performed By: #### 1 3282056, 4518826, 0628286, 1852612 ####[facility] [address] [place] [address] CO2 [Moles/Vol] 27 mmol/L Normal 21-31 [facility] Comment on above: Performed By: #### 1 3808064, 9683093, 1644510, 5001558 ####[facility] [address] [place] [address] Glucose [Mass/Vol] 115 mg/dL Normal 55-199 [facility] Comment on above: Result Comment: If t his glucose result represents a fasting glucose, interpretation should refer to the following reference range: 55-99 mg/dL Performed By: #### 1 0347472, 1498996, 1115974, 8290010 ####[facility] [address] [place] [address] Potassium [Moles/Vol] 4.3 mmol/L Normal 3.5-5.3 [facility] Comment on above: Performed By: #### 1 5981100, 2385244, 3592210, 1691372 ####[facility] [address] [place] [address] Sodium [Moles/Vol] 137 mmol/L Normal 135-145 [facility] Comment on above: Performed By: #### 1 1553344, 4129013, 3293224, 6427001 ####[facility] [address] [place] [address] CBC w/ Auto Diffon 3 Erythrocyte distribution width (RBC) [Ratio] 14.4 % High 10.9-14.2 [facility] Comment on above: Performed By: #### 1 6652823, 7940701, 9393934, 6088112 ####[address] [place] [address] Hematocrit (Bld) [Volume fraction] 42.6 % Normal 34.0-46.0 [facility] Comment on above: Performed By: #### 1 1558726, 9995842, 4039893, 1287855 ####[address] [address] Hemoglobin (Bld) [Mass/Vol] 14.4 g/dL Normal 12.0-16.0 [facility] Comment on above: Performed By: #### 1 3072165, 4547405, 8650717, 6241301 ####[address] [address] MCH (RBC) [Entitic mass] 33.1 pg Normal 27.0-34.0 [facility] Comment on above: Performed By: #### 1 3150894, 6971455, 3801166, 9295102 ####[address] [address] MCHC (RBC) [Mass/Vol] 33.8 g/dL Normal 31.4-36.0 [facility] Comment on above: Performed By: #### 1 3698031, 2406668, 3623514, 0217930 ####[address] [address] MCV (RBC) [Entitic vol] 98.0 fL Normal 80.0-100.0 [facility] Comment on above: Performed By: #### 1 5601404, 2190886, 1370691, 4794749 ####[address] [address] Platelet mean volume (Bld) [Entitic vol] 8.6 fL Normal 6.4-10.8 [facility] Comment on above: Performed By: #### 1 0815331, 7376664, 9797121, 5078899 ####[address] [address] Platelets (Bld) [#/Vol] 113.0 E9/L Low 150.0-500.0 [facility] Comment on above: Performed By: #### 1 7162676, 5043517, 8647364, 8596457 ####[facility] [address] [place] [address] RBC (Bld) [#/Vol] 4.4 E12/L Normal 4.3-5.9 [facility] Comment on above: Performed By: #### 1 0507103, 2503574, 1949598, 8848185 ####[facility] [address] [place] [address] WBC corrected for nucl RBC Auto (Bld) [#/Vol] 4.0 E9/L Normal 4.0-11.0 [facility] Comment on above: Performed By: #### 1 1345295, 0984247, 5072306, 1502336 ####[facility] [address] [place] [address] CHEMISTRYOrdered By: SYSTEM SYSTEM on 11-04-2022 Anion gap [Moles/Vol] 9 mmol/L Normal 6 - 16 mEq/L [facility] Remisol Calcium [Mass/Vol] 9.0 mg/dL Normal 8.9 - 11. 1 mg/dL FT Remisol Chloride [Moles/Vol] 105 mmol/L Normal 101 - 1 11 mmol/L FT Remisol CO2 [Moles/Vol] 27 mmol/L Normal 21 - 31 mmol/L FT Remisol Creatinine [Mass/Vol] 0.6 mg/dL Normal 0.5 - 1.3 mg/dL [facility] [place] Remisol GFR/1.73 sq M.predicted among non-blacks MDRD (S/P/Bld) [Vol rate/Area] 124 mL/min/1.73 m2 Normal >=59mL/min/1 .73 m2 [facility] Chem S Glucose [Mass/Vol] 115 mg/dL Normal 55 - 199 mg/dL FT Remisol Potassium [Moles/Vol] 4.3 mmol/L Normal 3.5 - 5.3 mmol/L FT Remisol Sodium [Moles/Vol] 137 mmol/L Normal 135 - 145 mmol/L FT Remisol Urea nitrogen [Mass/Vol] 7 mg/dL Normal 5 - 21 mg/dL [facility] [place] Remisol Urea nitrogen/Creatinine [Mass ratio] 12 mg/mg Normal 10 - 20 [facility] [place] Remisol Consent for Treatmenton 10-13 Consent for Treatment [id number]: 127 Normal [facility] Discharge Instructionson Discharge Instructions [id number]: 127 Normal [facility] ED Clinical Summaryon 2022 ED Clinical Summary Normal [facility] ED Note-Physicianon 11-05-19 ED Note-Physician Normal [facility] Comment on above: Result Comment: Elec tronically Signed By: Gladys Saini M.D.\Date and Time Signed: 11/04/22 16:02 EDT ED Patient Education Noteon 11-04-2022 ED Patient Education Note Normal [facility] ED Patient Summaryon 023 ED Patient Summary Normal [facility] HEMATOLOGYOrdered By: SYSTEM SYSTEM on 11-04-2022 [...] [Vol rate/Area] 124 mL/min/1.73 m2 Normal >=59 [facility] Comment on above: Order Comment: Order added by Discern Expert. Result Comment: Bead Picker justin kidney disease could be indicated at eGFR's of less than 60 mL/min/1.73m2. Kidney failure is indicated at less than 15 mL/min/1.73m2. Performed By: #### 1 [id number], 7929140, 5780641, 1628552 ####[facility] [address] [place] [address] Registrationon 10-08-2022 Registration [id number]#[id number] :127 Normal [facility] Consenton 10-05-2022 Consent [id number] :127 Normal [facility] Insurance Correspondenceon 0 09-12-2022 Insurance Correspondence [id number]: 127 [facility] Physician Referralon 023 Physician Referral [id number]#[id number]: 127 [facility] ED Note-Physicianon 09-11-19 23 ED Note-Physician [id number]#[id number]: 127 Normal [facility] Alanine aminotransferase [En zymatic activity/volume] in Serum or PlasmaOrdered By: Declan Marina on 09-06-2022 ALT [Catalytic activity/Vol] 54 U/L 7-52 [facility] Albumin [Mass/volume] in Ser um or Plasma by Bromocresol green (BCG) dye binding methoOrdered By: Declan Marina on 09-06-2022 Albumin BCG dye [Mass/Vol] 4.2 g/dL 3.5-5.7 [facility] Alkaline phosphatase [Enzyma tic activity/volume] in Serum or PlasmaOrdered By: Declan Marina on 09-06-2022 ALP [Catalytic activity/Vol] 106 U/L 34-104 [facility] Amphetamine Screen Ql (U)Ord ered By: Declan Marina on 09-06-2022 Amphetamines Ql (U) Negative Negative [facility] Aspartate aminotransferase [ Enzymatic activity/volume] in Serum or PlasmaOrdered By: Declan Marina on 09-06-2022 AST [Catalytic activity/Vol] 80 U/L 13-39 [facility] Automated erythrocytes count in urine sediment (number/area)Ordered By: Declan Marina on 09-06-2022 RBC Auto (Urine sed) [#/Area] None seen [HPF] 0-4 [facility] Automated leukocytes count i n urine sediment (number/area)Ordered By: Declan Marina on 09-06-2022 WBC Auto (Urine sed) [#/Area] 0-1 [HPF] 0-4 [facility] Barbiturates [Presence] in U rine by Screen methodOrdered By: Declan Marina on 09-06-2022 Barbiturates Screen Ql (U) Negative Negative [facility] Basophils Auto (Bld) [#/Vol] Ordered By: Declan Marina on 09-06-2022 Basophils (Bld) [#/Vol] 0.1 10*3/uL 0.0-0.2 [facility] Basophils/100 WBC Auto (Bld) Ordered By: Declan Marina on 09-06-2022 Basophils/100 WBC (Bld) 0.7 % . [facility] Benzodiazepines Screen Ql (U )Ordered By: Declan Marina on 09-06-2022 Benzodiazepines Ql (U) Negative Negative [facility] Benzoylecgonine [Presence] i n Urine by Screen methodOrdered By: Declan Marina on 09-06-2022 Benzoylecgonine Screen Ql (U) Negative Negative [facility] Bilirubin Test strip Ql (U)O rdered By: Declan Marina on 09-06-2022 Bilirubin Ql (U) Negative Negative [facility] Bilirubin.total [Mass/volume ] in Serum or PlasmaOrdered By: Declan Marina on 09-06-2022 Bilirubin [Mass/Vol] 0.6 mg/dL 0.3-1.0 [facility] Calcium [Mass/volume] in Ser um or PlasmaOrdered By: Declan Marina on 09-06-2022 Calcium [Mass/Vol] 9.6 mg/dL 8.6-10.3 [facility] Cannabinoids [Presence] in U rine by Screen methodOrdered By: Declan Marina on 09-06-2022 Cannabinoids Screen Ql (U) Negative Negative [facility] Comment on above: These are unconfirme d results and should not be used for legal purposes. Drug Cut-Off Concentration: AMPH 1000 ng/mL JANELL 200 ng/mL JAMES 200 ng/mL COCM 300 ng/mL OP 300 ng/mL PCP 25 ng/mL THC 20 ng/mL Carbon dioxide, total [Moles /volume] in Serum or PlasmaOrdered By: Declan Marina on 09-06-2022 CO2 [Moles/Vol] 27.1 mmol/L 21.0-31.0 [facility] Chloride [Moles/volume] in S marbella or PlasmaOrdered By: Declan Marina on 09-06-2022 Chloride [Moles/Vol] 98 mmol/L 98-107 [facility] Color Auto (U)Ordered By: Akiko Marina on 09-06-2022 Color (U) Yellow Yellow [facility] Creatinine [Mass/volume] in Serum or PlasmaOrdered By: Declan Marina on 09-06-2022 Creatinine [Mass/Vol] 0.51 mg/dL 0.60-1.20 [facility] Eosinophils Auto (Bld) [#/Vo l]Ordered By: Declan Marina on 09-06-2022 Eosinophils (Bld) [#/Vol] 0.0 10*3/uL 0.0-0.45 [facility] Eosinophils/100 WBC Auto (Bl d)Ordered By: Declan Marina on 09-06-2022 Eosinophils/100 WBC (Bld) 0.2 % . [facility] Erythrocyte distribution wid th Auto (RBC) [Ratio]Ordered By: Declan Marina on 09-06-2022 Erythrocyte distribution width (RBC) [Ratio] 14.2 % 11.9-15.3 [facility] Ethanol [Mass/volume] in Ser um or PlasmaOrdered By: Declan Marina on 09-06-2022 Ethanol [Mass/Vol] mg/dL [facility] Ethanol [Mass/Vol] TNP [facility] Comment on above: Test not performed Globulin Calc (S) [Mass/Vol] Ordered By: Declan Marina on 09-06-2022 Globulin (S) [Mass/Vol] 3.9 g/dL [facility] Glucose [Mass/volume] in Ser um or PlasmaOrdered By: Declan Marina on 09-06-2022 Glucose [Mass/Vol] 95 mg/dL 70-100 [facility] Comment on above: ADA recommended refe rence rangeRandom Glucose Reference Range is dependent on time and content of last meal. Glucose of more than 200 mg/dL in a nonstressed, ambulatory subject supports the diagnosis of Diabetes Mellitus. Hematocrit Auto (Bld) [Volum e fraction]Ordered By: Declan Marina on 09-06-2022 Hematocrit (Bld) [Volume fraction] 43.2 % 34.0-46.4 [facility] Hemoglobin [Mass/volume] in BloodOrdered By: Declan Marina on 09-06-2022 Hemoglobin (Bld) [Mass/Vol] 14.7 g/dL 11.8-15.4 [facility] Ketones Auto test strip (U) [Mass/Vol]Ordered By: Declan Marina on 09-06-2022 Ketones (U) [Mass/Vol] Negative Negative [facility] Laboratory - UrinalysisOrder ed By: Declan Marina on 09-06-2022 Hyaline casts LM Ql (Urine sed) 0-8 [LPF] 0-8 [facility] Leukocytes [#/volume] correc jose for nucleated erythrocytes in Blood by Automated counOrdered By: Declan Marina on 09-06-2022 WBC corrected for nucl RBC Auto (Bld) [#/Vol] 9.5 10*3/uL 3.8-11.6 [facility] Lymphocytes Auto (Bld) [#/Vo l]Ordered By: Declan Marina on 09-06-2022 Lymphocytes (Bld) [#/Vol] 1.5 10*3/uL 1.00-4.8 [facility] Lymphocytes/100 WBC Auto (Bl d)Ordered By: Declan Marina on 09-06-2022 Lymphocytes/100 WBC (Bld) 16.1 % . [facility] MCH Auto (RBC) [Entitic mass ]Ordered By: Declan Marina on 09-06-2022 MCH (RBC) [Entitic mass] 31.9 pg 24.7-34.3 [facility] MCHC Auto (RBC) [Mass/Vol]Or dered By: Declan Marina on 09-06-2022 MCHC (RBC) [Mass/Vol] 34.1 g/dL 32.0-35.0 [facility] MCV Auto (RBC) [Entitic vol] Ordered By: Declan Marina on 09-06-2022 MCV (RBC) [Entitic vol] 93.6 fL 80-100 [facility] Magnesium [Mass/volume] in S marbella or PlasmaOrdered By: Declan Marina on 09-06-2022 Magnesium [Mass/Vol] 1.3 mg/dL 1.9-2.7 [facility] Monocyte distribution width [Entitic volume] in Blood by AutomatedOrdered By: Declan Marina on 09-06-2022 Monocyte distribution width Auto (Bld) [Entitic vol] 15.56 % 0.00-20.00 [facility] Monocytes Auto (Bld) [#/Vol] Ordered By: Declan Marina on 09-06-2022 Monocytes (Bld) [#/Vol] 0.3 10*3/uL 0.0-0.8 [facility] Monocytes/100 WBC Auto (Bld) Ordered By: Declan Marina on 09-06-2022 Monocytes/100 WBC (Bld) 3.0 % . [facility] Neutrophils Auto (Bld) [#/Vo l]Ordered By: Declan Marina on 09-06-2022 Neutrophils (Bld) [#/Vol] 7.6 10*3/uL 1.8-7.7 [facility] Neutrophils/100 WBC Auto (Bl d)Ordered By: Declan Marina on 09-06-2022 Neutrophils/100 WBC (Bld) 80.0 % . [facility] Nitrite Test strip Ql (U)Ord ered By: Declan Marina on 09-06-2022 Nitrite Ql (U) Negative Negative [facility] No Panel InformationOrdered By: Declan Marina on 09-06-2022 Estimated GFR (CKD-EPI) > 60.0 mL/Min [facility] Creatinine Clearance (Chem 149.26 [facility] Nucleated erythrocytes [Pres ence] in Blood by Automated countOrdered By: Declan Marina on 09-06-2022 Nucleated RBC Auto Ql (Bld) 0.1 /100{WBC} 0-0.5 [facility] Opiates [Presence] in Urine by Screen methodOrdered By: Declan Marina on 09-06-2022 Opiates Screen Ql (U) Negative Negative [facility] Phencyclidine Screen Ql (U)O rdered By: Declan Marina on 09-06-2022 Phencyclidine Ql (U) Negative Negative [facility] Platelet mean volume Auto (B ld) [Entitic vol]Ordered By: Declan Marina on 09-06-2022 Platelet mean volume (Bld) [Entitic vol] 7.7 fL 6.3-10.7 [facility] Platelets Auto (Bld) [#/Vol] Ordered By: Declan Marina on 09-06-2022 Platelets (Bld) [#/Vol] 230 10*3/uL 150-450 [facility] Potassium [Moles/volume] in Serum or PlasmaOrdered By: Declan Marina on 09-06-2022 Potassium [Moles/Vol] 4.1 mmol/L 3.5-5.1 [facility] Protein Auto test strip (U) [Mass/Vol]Ordered By: Declan Marina on 09-06-2022 Protein (U) [Mass/Vol] Trace mg/dL Negative [facility] Protein [Mass/volume] in Ser um or PlasmaOrdered By: Declan Marina on 09-06-2022 Protein [Mass/Vol] 8.1 g/dL 6.4-8.9 [facility] RBC Auto (Bld) [#/Vol]Ordere d By: Declan Marina on 09-06-2022 RBC (Bld) [#/Vol] 4.62 10*6/uL 3.60-5.00 [facility] Serum or plasma albumin/glob ulin mass ratioOrdered By: Declan Marina on 09-06-2022 Albumin/Globulin [Mass ratio] 1.1 {ratio} [facility] Serum or plasma anion gap de terminationOrdered By: Declan Marina on 09-06-2022 Anion gap [Moles/Vol] 12.0 mmol/L 6.0-15.0 [facility] Sodium [Moles/volume] in Ser um or PlasmaOrdered By: Declan Marina on 09-06-2022 Sodium [Moles/Vol] 133 mmol/L 136-145 [facility] Specific gravity Auto test s trip (U) [Rel density]Ordered By: Declan Marina on 09-06-2022 Specific gravity (U) [Rel density] 1.012 1.001-1.030 [facility] Squamous epithelial cells de tection in urine sediment by light microscopyOrdered By: Declan Marina on 09-06-2022 Epithelial cells.squamous LM Ql (Urine sed) 3-4 [HPF] 0-2 [facility] Urea nitrogen [Mass/volume] in Serum or PlasmaOrdered By: Declan Marina on 09-06-2022 Urea nitrogen [Mass/Vol] 8 mg/dL 09-04 [facility] Urine bacteria detection by automated methodOrdered By: Declan Marina on 09-06-2022 Bacteria Auto Ql (U) 1+ None Seen [facility] Urine clarity by refractomet ry automatedOrdered By: Declan Marina on 09-06-2022 Clarity Refractometry automated (U) Clear Clear [facility] Urine glucose measurement by automated test strip (mass/volume)Ordered By: Declan Marina on 09-06-2022 Glucose Auto test strip (U) [Mass/Vol] Normal mg/dL Normal [facility] Urine hemoglobin detection b y automated test stripOrdered By: Declan Marina on 09-06-2022 Hemoglobin Auto test strip Ql (U) 2+ Negative [facility] Urine leukocyte esterase det ection by automated test stripOrdered By: Declan Marina on 09-06-2022 Leukocyte esterase Auto test strip Ql (U) 1+ Negative [facility] Urobilinogen Auto test strip (U) [Mass/Vol]Ordered By: Declan Marina on 09-06-2022 Urobilinogen (U) [Mass/Vol] Normal mg/dL Normal [facility] WBC Auto (Bld) [#/Vol]Ordere d By: Declan Marina on 09-06-2022 WBC (Bld) [#/Vol] 9.5 10*3/uL 3.8-11.6 [facility] pH Auto test strip (U)Ordere d By: Declan Marina on 09-06-2022 pH (U) 8.5 [pH] 5.0-9.0 [facility] Provider Letteron 09-04-2022 Provider Letter Normal [facility] Ambulatory Visit Summaryon 0 08-28-2022 Ambulatory Visit Summary Normal [facility] Family Medicine Office/Clini c Noteon 08-28-2022 Family Medicine Office/Clinic Note Normal [facility] Comment on above: Result Comment: Elec tronically Signed By: Lorie Morocho MD\.br\Date and Time Signed: 08/28/22 10:20 EDT Discharge Instructionson Discharge Instructions [id number]#[id number]: 127 Normal [facility] Discharge Note-Nursingon Discharge Note-Nursing Normal [facility] Patient Education - Texton 0 08-18-2022 Patient Education - Text Normal [facility] Progress Note-Physicianon Progress Note-Physician Normal [facility] Comment on above: Result Comment: Elec tronically Signed By: Luciana Qureshi RN\.br\Date and Time Signed: 08/18/22 09:11 EDT\.br\Electronically Co-Signed By: Jonathan Patel DO\.br\Date and Time Co-Signed: 08/18/22 09:41 EDT Valuables Checkliston 2022 Valuables Checklist [id number] [id number]#[id number] :127 Normal [facility] Acetamnphn Lvlon 08-17-2022 Acetaminophen [Mass/Vol] ug/mL Low 15-30 [facility] Comment on above: Performed By: #### 1 [id number], 0214753, 5598349, 2257654, 4757589, 72677830, 2501901, 8321641, 36198798, 6681091 ####[facility] [address] [place] [address] Ammoniaon 08-17-2022 Ammonia (P) [Moles/Vol] 43 mcmol High 11-35 [facility] Comment on above: Performed By: #### 2 318822, 9183485, 9188921, 39726530, 6511982, 4623004, 75608332, 32070398 ####[facility] [address] [place] [address] Ammonia (P) [Moles/Vol] 40 mcmol High 11-35 [facility] Comment on above: Performed By: #### 1 9329645, 7951638, 6578332, 0655205, 8995113, 47296261, 9047212, 5841531, 70139760, 3746296 ####[facility] [address] [place] [address] Auto Diffon 08-17-2022 Basophils/100 WBC (Bld) 0.3 % Normal 0.0-2.0 [facility] Comment on above: Order Comment: Order Added by Discern Expert. Performed By: #### 2 761533, 2567260, 7423668, 71392543, 3497490, 7787889, 63834702, 04775048 ####[address] [place] [address] Basophils/Leukocytes Auto (Bld) [Pure # fraction] 0.0 E9/L Normal 0.0-0.2 [facility] Comment on above: Order Comment: Order Added by Discern Expert. Performed By: #### 2 378410, 0268397, 9378181, 23619887, 8940533, 4522539, 12617245, 84735929 ####[address] [place] [address] Eosinophils/100 WBC (Bld) 0.4 % Normal 0.0-8.0 [facility] Comment on above: Order Comment: Order Added by Discern Expert. Performed By: #### 2 139322, 8983115, 4511564, 70763642, 8922586, 9908632, 00729154, 78670783 ####[address] [place] [address] Eosinophils/Leukocyte s Auto (Bld) [Pure # fraction] 0.0 E9/L Normal 0.0-0.5 [facility] Comment on above: Order Comment: Order Added by Discern Expert. Performed By: #### 2 223112, 3285320, 8151559, 76483057, 9398936, 6835465, 28527817, 37569884 ####[address] [place] [address] Lymphocytes/100 WBC (Bld) 33.9 % Normal 14.0-50.0 [facility] Comment on above: Order Comment: Order Added by Discern Expert. Performed By: #### 2 092335, 5649227, 9072114, 42595659, 2561117, 1685804, 20318754, 19605876 ####[address] [place] [address] Lymphocytes/Leukocyte s Auto (Bld) [Pure # fraction] 2.3 E9/L Normal 1.0-4.0 [facility] Comment on above: Order Comment: Order Added by Discern Expert. Performed By: #### 2 979604, 0702538, 8273694, 59375447, 9889253, 6104987, 98708377, 10292940 ####[address] [address] Monocytes/100 WBC (Bld) 7.0 % Normal 4.0-14.0 [facility] Comment on above: Order Comment: Order Added by Discern Expert. Performed By: #### 2 124872, 6831999, 7990764, 14908386, 5053305, 3857341, 71089185, 62997985 ####[address] [place] [address] Monocytes/Leukocytes Auto (Bld) [Pure # fraction] 0.5 E9/L Normal 0.2-1.0 [facility] Comment on above: Order Comment: Order Added by Discern Expert. Performed By: #### 2 839121, 9052940, 8426907, 63817039, 9423529, 2833874, 67143534, 26577694 ####[address] [place] [address] Neutrophils/100 WBC (Bld) 58.4 % Normal 36.0-75.0 [facility] Comment on above: Order Comment: Order Added by Discern Expert. Performed By: #### 2 234313, 0524370, 4048452, 63490183, 7965130, 0788121, 85066974, 32313358 ####[address] [place] [address] Neutrophils/Leukocyte s Auto (Bld) [Pure # fraction] 4.0 E9/L Normal 2.0-7.5 [facility] Comment on above: Order Comment: Order Added by Discern Expert. Performed By: #### 2 617292, 2745239, 8390502, 08826569, 1806994, 7905374, 06988801, 68584887 ####[address] [place] [address] Basophils/100 WBC (Bld) 0.9 % Normal 0.0-2.0 [facility] Comment on above: Order Comment: Order Added by Discern Expert. Performed By: #### 1 1381442, 7386522, 6234510, 7522814, 6189118, 03262533, 7376568, 2872527, 72064102, 6203151 ####[address] [place] [address] Basophils/Leukocytes Auto (Bld) [Pure # fraction] 0.1 E9/L Normal 0.0-0.2 [facility] Comment on above: Order Comment: Order Added by Discern Expert. Performed By: #### 1 2417590, 4286974, 2171273, 5076920, 3043860, 55103103, 9469524, 0348549, 50628855, 5276060 ####[address] [place] [address] Eosinophils/100 WBC (Bld) 1.1 % Normal 0.0-8.0 [facility] Comment on above: Order Comment: Order Added by Discern Expert. Performed By: #### 1 1087029, 8916371, 0116196, 2966151, 0584111, 01818868, 2310278, 6762362, 68288810, 9881081 ####[address] [place] [address] Eosinophils/Leukocyte s Auto (Bld) [Pure # fraction] 0.1 E9/L Normal 0.0-0.5 [facility] Comment on above: Order Comment: Order Added by Discern Expert. Performed By: #### 1 6336298, 9859030, 8924885, 2258911, 9668370, 13280379, 1198314, 4751056, 53395024, 9608491 ####[address] [place] [address] Lymphocytes/100 WBC (Bld) 41.5 % Normal 14.0-50.0 [facility] Comment on above: Order Comment: Order Added by Discern Expert. Performed By: #### 1 2553988, 6593140, 5330237, 1932982, 0645488, 81908720, 5359848, 9545050, 90637461, 0010331 ####[address] [address] Lymphocytes/Leukocyte s Auto (Bld) [Pure # fraction] 5.2 E9/L High 1.0-4.0 [facility] Comment on above: Order Comment: Order Added by Discern Expert. Performed By: #### 1 9851713, 9400337, 7959438, 9453092, 4780326, 85445023, 6024031, 8482094, 93684393, 6721937 ####[address] [place] [address] Monocytes/100 WBC (Bld) 10.0 % Normal 4.0-14.0 [facility] Comment on above: Order Comment: Order Added by Discern Expert. Performed By: #### 1 2690747, 1567539, 0684182, 2398207, 9419099, 72670073, 3850099, 2476797, 91797885, 3767066 ####[address] [place] [address] Monocytes/Leukocytes Auto (Bld) [Pure # fraction] 1.3 E9/L High 0.2-1.0 [facility] Comment on above: Order Comment: Order Added by Discern Expert. Performed By: #### 1 7022564, 0373473, 7284314, 7168895, 6853451, 79691855, 4677264, 3813277, 47624595, 5611792 ####[facility] [address] [place] [address] Neutrophils/100 WBC (Bld) 46.5 % Normal 36.0-75.0 [facility] Comment on above: Order Comment: Order Added by Discern Expert. Performed By: #### 1 5278940, 9297666, 6656381, 2407686, 4625363, 97646658, 5812678, 6758237, 27215603, 3352538 ####[facility] [address] [place] [address] Neutrophils/Leukocyte s Auto (Bld) [Pure # fraction] 5.8 E9/L Normal 2.0-7.5 [facility] Comment on above: Order Comment: Order Added by Discern Expert. Performed By: #### 1 4400116, 2297677, 2051267, 5735289, 6278580, 79611882, 8328285, 0332215, 00804640, 3389962 ####[address] [place] [address] B hCG Qualon 08-17-2022 Beta hCG Ql Negative Normal [facility] Comment on above: Performed By: #### 1 6384491, 9382759, 4330454, 3762128, 4551954, 83268088, 7766813, 9064452, 35030172, 5990870 ####[facility] [address] [place] [address] BMPon 08-17-2022 Anion gap [Moles/Vol] 12 mmol/L Normal 6-16 [facility] Comment on above: Performed By: #### 2 763429, 9928942, 0681890, 71949109, 4990486, 3041846, 37897245, 38047906 ####[facility] [address] [place] [address] Calcium [Mass/Vol] 8.6 mg/dL Low 8.9-11.1 [facility] Comment on above: Performed By: #### 2 321182, 9877523, 5691233, 82829275, 9133028, 1116514, 25471499, 37189904 ####[facility] [address] [place] [address] Chloride [Moles/Vol] 106 mmol/L Normal 101-111 [facility] Comment on above: Performed By: #### 2 828893, 3286954, 5314668, 15711793, 9784524, 6183678, 79110060, 51542023 ####[facility] [address] [place] [address] CO2 [Moles/Vol] 22 mmol/L Normal 21-31 [facility] Comment on above: Performed By: #### 2 289093, 4185857, 1108583, 16006820, 9826316, 1739308, 50554508, 17767753 ####[facility] [address] [place] [address] Creatinine [Mass/Vol] 0.7 mg/dL Normal 0.5-1.3 [facility] Comment on above: Performed By: #### 2 757020, 7352771, 7869938, 30340026, 0942198, 1305577, 91434737, 12105544 ####[facility] [address] [place] [address] Glucose [Mass/Vol] 90 mg/dL Normal 55-199 [facility] Comment on above: Result Comment: If t his glucose result represents a fasting glucose, interpretation should refer to the following reference range: 55-99 mg/dL Performed By: #### 2 903494, 3122487, 2035013, 16647003, 1345613, 0928573, 65391595, 56445190 ####[facility] [address] [place] [address] Potassium [Moles/Vol] 4.2 mmol/L Normal 3.5-5.3 [facility] Comment on above: Performed By: #### 2 469216, 7507869, 1245037, 05601585, 2780362, 5702499, 29854631, 36526552 ####[facility] [address] [place] [address] Sodium [Moles/Vol] 136 mmol/L Normal 135-145 [facility] Comment on above: Performed By: #### 2 843439, 1226866, 3350970, 90532823, 2863039, 4522297, 43504485, 68494428 ####[facility] [address] [place] [address] Urea nitrogen [Mass/Vol] 18 mg/dL Normal 5-21 [facility] Comment on above: Performed By: #### 2 587136, 4211398, 9771597, 60382252, 2793169, 3507302, 94401881, 38815747 ####[facility] [address] [place] [address] Urea nitrogen/Creatinine [Mass ratio] 26 No Units High 10-20 [facility] Comment on above: Performed By: #### 2 414492, 4346853, 8502343, 74339718, 8255464, 2427426, 12806066, 45542404 ####[facility] [address] [place] [address] Creatinine [Mass/Vol] 1.1 mg/dL Normal 0.5-1.3 [facility] Comment on above: Performed By: #### 1 6012616, 1520742, 4132972, 7085041, 6612213, 57723855, 4211359, 4209785, 01597178, 9536077 ####[facility] [address] [place] [address] Urea nitrogen [Mass/Vol] 27 mg/dL High 5- [facility] Comment on above: Performed By: #### 1 4428406, 7291500, 9464438, 5152391, 7775420, 24497454, 1007031, 5226733, 19651629, 0979825 ####[facility] [address] [place] [address] Urea nitrogen/Creatinine [Mass ratio] 24 No Units High 10-20 [facility] Comment on above: Performed By: #### 1 1001929, 6582918, 0913324, 0442909, 6722925, 33072556, 7959652, 8977644, 07569233, 9466805 ####[facility] [address] [place] [address] Anion gap [Moles/Vol] 15 mmol/L Normal 6-16 [facility] Comment on above: Performed By: #### 1 0613099, 1153213, 7700822, 4528607, 5691391, 20250207, 6411811, 2866618, 53444897, 8546915 ####[facility] [address] [place] [address] Calcium [Mass/Vol] 9.2 mg/dL Normal 8.9-11.1 [facility] Comment on above: Performed By: #### 1 6678363, 1042681, 3846124, 8418418, 7785042, 83409231, 3312619, 5152225, 53399991, 0880134 ####[facility] [address] [place] [address] Chloride [Moles/Vol] 103 mmol/L Normal 101-111 [facility] Comment on above: Performed By: #### 1 8105265, 0089985, 5448042, 7619469, 1323521, 77045304, 5785361, 0353010, 15291022, 9177699 ####[facility] [address] [place] [address] CO2 [Moles/Vol] 22 mmol/L Normal 21-31 [facility] Comment on above: Performed By: #### 1 6088949, 0993886, 9076497, 5315932, 5731533, 39550825, 5792764, 5728232, 69921875, 9413390 ####[facility] [address] [place] [address] Glucose [Mass/Vol] 64 mg/dL Normal 55-199 [facility] Comment on above: Result Comment: If t his glucose result represents a fasting glucose, interpretation should refer to the following reference range: 55-99 mg/dL Performed By: #### 1 3022621, 7871453, 5621947, 8939542, 7989691, 05317039, 1644127, 1065788, 02255691, 7410914 ####[facility] [address] [place] [address] Potassium [Moles/Vol] 3.7 mmol/L Normal 3.5-5.3 [facility] Comment on above: Performed By: #### 1 1508291, 8212913, 2703044, 3752780, 1828349, 98304451, 3366279, 9069379, 21556708, 1681805 ####[facility] [address] [place] [address] Sodium [Moles/Vol] 136 mmol/L Normal 135-145 [facility] Comment on above: Performed By: #### 1 9843679, 6022880, 2655397, 9100971, 8241628, 80805588, 8314651, 0996011, 97998080, 3995481 ####[facility] [address] [place] [address] CBC w/ Auto Diffon 3 Erythrocyte distribution width (RBC) [Ratio] 14.0 % Normal 10.9-14.2 [facility] Comment on above: Performed By: #### 2 555779, 4062160, 4796865, 41172983, 5196462, 6937097, 88875753, 64208034 ####[facility] [address] [place] [address] Hematocrit (Bld) [Volume fraction] 39.1 % Normal 34.0-46.0 [facility] Comment on above: Performed By: #### 2 894519, 0899117, 6276222, 52817153, 0130493, 4755728, 03474965, 92588245 ####[facility] [address] [place] [address] Hemoglobin (Bld) [Mass/Vol] 13.3 g/dL Normal 12.0-16.0 [facility] Comment on above: Performed By: #### 2 994044, 9736747, 4345583, 01650883, 6795913, 1685507, 29724137, 19951323 ####[address] [place] [address] MCH (RBC) [Entitic mass] 31.4 pg Normal 27.0-34.0 [facility] Comment on above: Performed By: #### 2 676431, 0485563, 2790818, 15871245, 5619430, 1191578, 26599449, 36050016 ####[address] [address] MCHC (RBC) [Mass/Vol] 34.2 g/dL Normal 31.4-36.0 [facility] Comment on above: Performed By: #### 2 171063, 3480550, 9684234, 06934705, 5818612, 1355582, 22258293, 88141616 ####[address] [place] [address] MCV (RBC) [Entitic vol] 91.9 fL Normal 80.0-100.0 [facility] Comment on above: Performed By: #### 2 451054, 9954336, 4463407, 87809410, 5741047, 0258925, 31062784, 89336944 ####[facility] [address] [place] [address] Platelet mean volume (Bld) [Entitic vol] 8.2 fL Normal 6.4-10.8 [facility] Comment on above: Performed By: #### 2 636401, 8145127, 2431176, 74650255, 5584929, 3947058, 85169631, 41828234 ####[address] [address] Platelets (Bld) [#/Vol] 181.0 E9/L Normal 150.0-500.0 [facility] Comment on above: Performed By: #### 2 559814, 9988604, 3854339, 16038386, 1717823, 0561615, 55243070, 85032746 ####[facility] [address] [place] [address] RBC (Bld) [#/Vol] 4.2 E12/L Low 4.3-5.9 [facility] Comment on above: Performed By: #### 2 330274, 8376508, 8574117, 89694332, 4140393, 5747066, 10798525, 55899301 ####[facility] [address] [place] [address] WBC corrected for nucl RBC Auto (Bld) [#/Vol] 6.9 E9/L Normal 4.0-11.0 [facility] Comment on above: Performed By: #### 2 006596, 7200980, 5954197, 64077734, 6164590, 0023976, 24721659, 56029111 ####[facility] [address] Erythrocyte distribution width (RBC) [Ratio] 13.6 % Normal 10.9-14.2 [facility] Comment on above: Performed By: #### 1 2277895, 5741826, 1477877, 8096977, 5903330, 22443296, 0189680, 2510059, 12733259, 3243024 ####[facility] [address] [place] [address] Hematocrit (Bld) [Volume fraction] 39.8 % Normal 34.0-46.0 [facility] Comment on above: Performed By: #### 1 9793562, 2444234, 4127422, 7328374, 0041769, 86053615, 7049980, 7209010, 56349119, 9835583 ####[facility] [address] [place] [address] Hemoglobin (Bld) [Mass/Vol] 13.6 g/dL Normal 12.0-16.0 [facility] Comment on above: Performed By: #### 1 1195002, 2069102, 2717625, 0610746, 7309150, 67609393, 4563396, 4913289, 21687604, 2561370 ####[facility] [address] [place] [address] MCH (RBC) [Entitic mass] 31.5 pg Normal 27.0-34.0 [facility] Comment on above: Performed By: #### 1 6779108, 4094676, 2730008, 8473414, 2119276, 28337783, 7135539, 2720175, 69402875, 8228972 ####[address] [place] [address] MCHC (RBC) [Mass/Vol] 34.1 g/dL Normal 31.4-36.0 [facility] Comment on above: Performed By: #### 1 0399382, 9925437, 2387865, 9719713, 0898908, 82619840, 9863359, 3084527, 32674857, 8237063 ####[address] [place] [address] MCV (RBC) [Entitic vol] 92.3 fL Normal 80.0-100.0 [facility] Comment on above: Performed By: #### 1 7405771, 9789573, 3252867, 0468757, 8548835, 41864834, 4220378, 3062668, 19046810, 2585640 ####[facility] [address] [place] [address] Platelet mean volume (Bld) [Entitic vol] 8.7 fL Normal 6.4-10.8 [facility] Comment on above: Performed By: #### 1 8359786, 7105346, 7597445, 1408577, 8332022, 84793265, 6819860, 6407915, 22241062, 4336024 ####[address] [place] [address] Platelets (Bld) [#/Vol] 243.0 E9/L Normal 150.0-500.0 [facility] Comment on above: Performed By: #### 1 3886180, 1789870, 4977516, 6181074, 3403497, 44157987, 9743280, 7289891, 85457350, 6072220 ####[facility] [address] [place] [address] RBC (Bld) [#/Vol] 4.3 E12/L Normal 4.3-5.9 [facility] Comment on above: Performed By: #### 1 2705894, 4801046, 7985253, 8545680, 2962564, 48426195, 2213041, 2111654, 38257571, 5651614 ####[facility] [address] [place] [address] WBC corrected for nucl RBC Auto (Bld) [#/Vol] 12.6 E9/L High 4.0-11.0 [facility] Comment on above: Result Comment: Slid e reviewed by HANNAH. Performed By: #### 1 6649917, 9609718, 4816834, 5805153, 5721282, 49392331, 9091818, 7757016, 99005168, 8237461 ####[facility] [address] [place] [address] CHEMISTRYOrdered By: SYSTEM SYSTEM on 08-17-2022 Ammonia [...] CT Head or Brain w/o Contrast Normal [facility] Consent for Treatmenton Consent for Treatment [id number] :127 Normal [facility] Consultation Noteon 08-18-19 Consultation Note Normal [facility] Comment on above: Result Comment: Elec tronically Signed By: Bekah Billings RN\.br\Date and Time Signed: 08/17/22 10:14 EDT\.br\Electronically Co-Signed By: Jonathan Patel DO\.br\Date and Time Co-Signed: 08/17/22 11:06 EDT ED Clinical Summaryon 2022 ED Clinical Summary Normal [facility] ED Note-Physicianon 08-18-19 ED Note-Physician Normal [facility] Comment on above: Result Comment: Elec tronically Signed By: Darren Guzman DO\.br\Date and Time Signed: 08/17/22 04:38 EDT ED Patient Education Noteon 08-17-2022 ED Patient Education Note Normal [facility] ED Patient Summaryon 023 ED Patient Summary Normal [facility] Ethanolon 08-17-2022 Ethanol [Mass/Vol] mg/dL Normal <=7 [facility] Comment on above: Performed By: #### 2 234501 ####[facility] [address] [place] [address] HEMATOLOGYOrdered By: SYSTEM SYSTEM on 08-17-2022 Basophils/100 [...] 08-17-2022 Albumin [Mass/Vol] 4.2 g/dL Normal 3.3-5.0 [facility] Comment on above: Performed By: #### 1 2837067, 5449384, 8235411, 2590229, 1276379, 13064556, 8797462, 9453650, 47104995, 5885458 ####[address] [place] [address] Albumin/Globulin (S) [Mass conc ratio] 1.1 Normal 1.1-2.2 [facility] Comment on above: Performed By: #### 1 8285093, 9943097, 3756517, 6916641, 2138223, 28805270, 8124564, 3782429, 38204415, 2735180 ####[address] [place] [address] ALP [Catalytic activity/Vol] 83 Int._Unit/L Normal 21-98 [facility] Comment on above: Performed By: #### 1 8542716, 1707884, 3130706, 8466562, 5250083, 22793616, 3405838, 5755976, 11213892, 0652344 ####[address] [address] ALT No additional P-5'-P [Catalytic activity/Vol] 139 Int._Unit/L High 6-46 [facility] Comment on above: Performed By: #### 1 3741300, 1643653, 2515728, 2660447, 4490599, 11532715, 5084161, 1764269, 95870438, 5519618 ####[address] [place] [address] AST [Catalytic activity/Vol] 146 Int._Unit/L High 5-43 [facility] Comment on above: Performed By: #### 1 6248709, 0248737, 8684570, 4812103, 6823053, 48916351, 2146476, 8013551, 55115901, 0313387 ####[address] [place] [address] Bilirubin [Mass/Vol] 1.0 mg/dL Normal 0.0-1.1 [facility] Comment on above: Performed By: #### 1 3924295, 2693455, 2686674, 3528269, 8659780, 34722929, 8934593, 8412500, 73430590, 1904890 ####[facility] [address] [place] [address] Bilirubin.direct [Mass/Vol] 0.3 mg/dL Normal 0.1-0.4 [facility] Comment on above: Performed By: #### 1 4647411, 4036237, 3428527, 0380546, 1815115, 06854639, 5997662, 3389883, 06212408, 1717581 ####[address] [place] [address] Bilirubin.indirect [Mass or moles/Vol] 0.7 mg/dL Normal 0.1-0.9 [facility] Comment on above: Performed By: #### 1 9082324, 4101252, 6083544, 5279889, 9570162, 17162393, 4172864, 5985247, 66860225, 2281466 ####[address] [place] [address] Globulin (S) [Mass/Vol] 3.7 g/dL Normal 1.4-4.0 [facility] Comment on above: Performed By: #### 1 6657099, 4205535, 4868921, 5619073, 2892960, 40707143, 2839087, 8714779, 22255343, 8505425 ####[address] [place] [address] Protein [Mass/Vol] 7.9 g/dL High 6.0-7.8 [facility] Comment on above: Performed By: #### 1 1911105, 8013130, 9793309, 8991224, 8496085, 39461331, 2601788, 1229080, 11406251, 7694430 ####[address] [place] [address] Interdisciplinary Note - Alonso e Manageron 08-17-2022 Interdisciplinary Note - Landscape Photographer Normal [facility] Comment on above: Result Comment: Elec tronically Signed By: Jere RN, Ernestina\.br\Date and Time Signed: 08/17/22 11:06 EDT Interdisciplinary Note - Soc ial Workeron 08-17-2022 Interdisciplinary Note - Pet Care Technician Normal [facility] Pre-Arrival Noteon 3 Pre-Arrival Note Normal [facility] RAD - Preliminary Cat Scan R eporton 08-17-2022 RAD - Preliminary Cat Scan Report [id number]#[id number]: 127 Normal [facility] SEROLOGYOrdered By: Monica Earl on 08-17-2022 Beta hCG Ql Negative (08/17/22 12:29 AM) Normal [facility] Man Sero Salicylateon 08-17-2022 Salicylates [Mass/Vol] mg/dL Low 6-29 [facility] Comment on above: Performed By: #### 1 0170390, 3620615, 6369508, 3928155, 0322911, 52472407, 9116259, 0918365, 42426119, 0881224 ####[facility] [address] [place] [address] Sed Rate Automatedon 023 Sed Rate Automated 7 mm/hr Normal 0-34 [facility] Comment on above: Performed By: #### 2 563879, 9235786, 4720257, 37729543, 3029650, 1708722, 90189042, 90890681 ####[facility] [address] [place] [address] TSH With T4fr Reflexon 08-17 TSH Qn 1.49 m[IU]/L Normal 0.34-5.60 [facility] Comment on above: Performed By: #### 2 664986, 2760539, 6185408, 40405934, 1777569, 9876974, 94055232, 99408287 ####[facility] [address] [place] [address] Troponin 0 Hr.on 08-17-2022 Troponin I.cardiac [Mass/Vol] 8.00 pg/mL Low 10.10-27.10 [facility] Comment on above: Order Comment: per p t combative/uncooperative per Dr. Guzman waiting for meds to be administered before trying iv/bloodwork. ER to notify me when ready...[facility] 08/16/2022 23:46:16 EDT Result Comment: The 95% CI (Confidence Interval) PPV (Positive Predictive Value) for myocardial infarction in females is 38 pg/mL, in males 51 pg/mL. The results should be used in conjunction with clinical conditions of myocardial infarction.(Access High Sensitivity Troponin I Instructions For Use, [employer], September 2017) Performed By: #### 1 2473514, 0754551, 0508522, 0807146, 8483097, 10620061, 8653860, 2078655, 43797223, 0425686 ####[facility] [address] [place] [address] U Drug Screenon 08-17-2022 Amphetamines Screen method >1000 ng/mL Ql (U) Positive Abnormal Negative [facility] Comment on above: Result Comment: Crit ical Result verified by repeat analysis\Critical Result UD_AMPH:POS Called to [facility] AT ER by MONICA EARL And Read Back For Confirmation at: 08/17/2022 03:58:19Negative Cutoff: <1000 ng/mL Performed By: #### 2 503454 ####[facility] [address] [place] [address] Cocaine Ql (U) Positive Abnormal Negative [facility] Comment on above: Result Comment: Crit ical Result verified by repeat analysis\Critical Result UD_COCM:POS Called to [facility] AT ER by MONICA EARL And Read Back For Confirmation at: 08/17/2022 03:58:19Negative Cutoff: <300 ng/mL Performed By: #### 2 508050 ####[facility] [address] [place] [address] Barbiturates Screen Ql (U) Negative Normal Negative [facility] Comment on above: Result Comment: Nega tive Cutoff: <200 ng/mL Performed By: #### 2 465614 ####[facility] [address] [facility] [place] [place] [address] Benzodiazepines Ql (U) Negative Normal Negative [facility] Comment on above: Result Comment: Nega tive Cutoff: <200 ng/mL Performed By: #### 2 807186 ####[facility] [address] [place] [place] [address] Opiates Screen Ql (U) Negative Normal Negative Fis [facility] Comment on above: Result Comment: Nega tive Cutoff: <300 ng/mL Performed By: #### 2 184762 ####[facility] [address] [place] [address] Phencyclidine Screen method >25 ng/mL Ql (U) Negative Normal Negative [facility] Comment on above: Result Comment: Nega tive Cutoff: <25 ng/mLThese drug screen results are to be used for medical (i.e., treatment) purposes only. Unconfirmed drug screening results must not be used for non-medical purposes (e.g., employment testing, legal testing). Performed By: #### 2 302206 ####[facility] [address] [place] [address] Tetrahydrocannabinol Screen method >50 ng/mL Ql (U) Negative Normal Negative [facility] Comment on above: Result Comment: Nega tive Cutoff: <50 ng/mL Performed By: #### 2 396711 ####[facility] [address] [place] [address] UA With Cult Reflexon 2022 Bilirubin Ql (U) Negative Normal Negative [facility] Comment on above: Performed By: #### 1 4826603 ####[facility] [address] [place] [address] Clarity (U) CLEAR Normal Clear [facility] Comment on above: Performed By: #### 1 2060406 ####[facility] [address] [place] [address] Color (U) YELLOW Normal Yellow [facility] Comment on above: Performed By: #### 1 0139557 ####[address] [place] [address] Crystals LM Ql (Urine sed) Present Normal [facility] Comment on above: Performed By: #### 1 0314110 ####[address] [address] Epithelial cells.squamous LM.HPF (Urine sed) [#/Area] 0-2 Normal 0-2 [facility] Comment on above: Performed By: #### 1 5132675 ####[address] [address] Glucose Test strip (U) [Mass/Vol] Negative Normal Negative [facility] Comment on above: Performed By: #### 1 7438240 ####[address] [address] Hemoglobin Ql (U) Negative Normal Negative [facility] Comment on above: Performed By: #### 1 9457656 ####[address] [address] Ketones (U) [Mass/Vol] Negative Normal Negative [facility] Comment on above: Performed By: #### 1 3210964 ####[address] [address] [place].plasma/Lithiu m.RBC (Bld) [Mass ratio] 0-3 Normal 0-3 [facility] Comment on above: Performed By: #### 1 8234834 ####[address] [address] Nitrite Ql (U) Negative Normal Negative [facility] Comment on above: Performed By: #### 1 7750014 ####[address] [address] pH (U) 5.5 [pH] Invalid Interpretation Code 5.0-9.0 [facility] Comment on above: Performed By: #### 1 4566827 ####[address] [address] Protein (U) [Mass/Vol] Negative Normal Negative [facility] Comment on above: Performed By: #### 1 3341876 ####[facility] [address] [place] [address] Specific gravity (U) [Rel density] 1.020 Invalid Interpretation Code 1.005-1.030 [facility] Comment on above: Performed By: #### 1 8958478 ####[address] [address] Type of Urine collection method Clean Catch Normal [facility] Comment on above: Performed By: #### 1 2921605 ####[facility] [address] [place] [address] Urobilinogen Qn (U) 0.2 {Surinder'U}/dL Normal 0.0-1.0 [facility] Comment on above: Performed By: #### 1 6978212 ####[address] [address] WBC Auto Ql (U) Negative Normal Negative [facility] Comment on above: Performed By: #### 1 0680623 ####[facility] [address] [place] [address] WBC LM.HPF (Urine sed) [#/Area] 0-5 Normal 0-5 [facility] Comment on above: Performed By: #### 1 1655316 ####[address] [address] URINALYSISOrdered By: Too Earl on 08-17-2022 Bilirubin [...] AM) Normal Negative [facility] UA Auto SS [place].plasma/Lithiu m.RBC (Bld) [Mass ratio] 0-3 /HPF Normal [...] [facility] UA Auto SS Urobilinogen Qn (U) 0.5148600 {Surinder'U}/dL Normal 0.0 - 1.0 EU/dL [facility] UA Auto SS WBC Auto Ql (U) Negative (08/17/22 3:01 AM) Normal Negative [facility] UA Auto SS WBC LM.HPF (Urine sed) [#/Area] 0-5 /HPF Normal 0-5/HPF [facility] UA Auto SS Vit B12on 08-17-2022 Cobalamin (Vitamin B12) [Mass/Vol] 384 pg/mL Normal 50-1500 [facility] Comment on above: Performed By: #### 2 399142, 3975318, 4268891, 99755327, 7654004, 9170557, 15161011, 18050615 ####[facility] [address] [place] [address] XR Chest Single Viewon 08-17 XR Chest Single View Normal [facility] eGFRon 08-17-2022 GFR/1.73 sq M.predicted among non-blacks MDRD (S/P/Bld) [Vol rate/Area] 119 mL/min/1.73 m2 Normal >=59 [facility] Comment on above: Order Comment: Order added by Discern Expert. Result Comment: Bead Picker justin kidney disease could be indicated at eGFR's of less than 60 mL/min/1.73m2. Kidney failure is indicated at less than 15 mL/min/1.73m2. Performed By: #### 2 500399, 9926116, 1787810, 72952503, 1702020, 8851868, 01681999, 07281302 ####[facility] [address] [place] [address] GFR/1.73 sq M.predicted among non-blacks MDRD (S/P/Bld) [Vol rate/Area] 69 mL/min/1.73 m2 Normal >=59 [facility] Comment on above: Order Comment: Order added by Discern Expert. Result Comment: Bead Picker justin kidney disease could be indicated at eGFR's of less than 60 mL/min/1.73m2. Kidney failure is indicated at less than 15 mL/min/1.73m2. Performed By: #### 1 0629295, 2920972, 0972682, 1725738, 5255870, 12829156, 8887001, 3452598, 34138137, 7398354 ####[facility] [address] [place] [address] ED Note-Physicianon 08-17-19 ED Note-Physician Normal [facility] Comment on above: Result Comment: Elec tronically Signed By: Colin Fernandez PA-C\.br\Date and Time Signed: 08/15/22 20:22 EDT\.br\Electronically Co-Signed By: Isai Hall DO.br\Date and Time Co-Signed: 08/16/22 06:53 EDT Family Medicine Office/Clini c Noteon 08-16-2022 Family Medicine Office/Clinic Note Normal [facility] Comment on above: Result Comment: Elec tronically Signed By: Amanda BERNARD CNP\.br\Date and Time Signed: 08/16/22 10:22 EDT\.br\Electronically Co-Signed By: [employer].br\Date and Time Co-Signed: 08/13/22 17:08 EDT Auto Diffon 08-15-2022 Basophils/100 WBC (Bld) 1.1 % Normal 0.0-2.0 [facility] Comment on above: Order Comment: Order Added by Discern Expert. Performed By: #### 2 361076, 3109994, 71646809, 9912076, 5265817, 10883039 ####[facility] [address] [place] [address] Basophils/Leukocytes Auto (Bld) [Pure # fraction] 0.1 E9/L Normal 0.0-0.2 [facility] Comment on above: Order Comment: Order Added by Discern Expert. Performed By: #### 2 143389, 8486023, 69662239, 2294463, 4998981, 89475930 ####[address] [address] Eosinophils/100 WBC (Bld) 1.3 % Normal 0.0-8.0 [facility] [facility] Comment on above: Order Comment: Order Added by Discern Expert. Performed By: #### 2 862245, 3954415, 78489687, 6898252, 8645699, 29036302 ####[address] [place] [address] Eosinophils/Leukocyte s Auto (Bld) [Pure # fraction] 0.1 E9/L Normal 0.0-0.5 [facility] Comment on above: Order Comment: Order Added by Discern Expert. Performed By: #### 2 745333, 6490133, 11400066, 8832565, 1506060, 46998724 ####[address] [place] [address] Lymphocytes/100 WBC (Bld) 45.6 % Normal 14.0-50.0 [facility] Comment on above: Order Comment: Order Added by Discern Expert. Performed By: #### 2 589048, 0914472, 57931560, 8871419, 9932584, 68948346 ####[address] [place] [address] Lymphocytes/Leukocyte s Auto (Bld) [Pure # fraction] 3.2 E9/L Normal 1.0-4.0 [facility] Comment on above: Order Comment: Order Added by Discern Expert. Performed By: #### 2 813094, 0272814, 68823076, 6366169, 2174007, 60646411 ####[address] [address] Monocytes/100 WBC (Bld) 8.4 % Normal 4.0-14.0 [facility] Comment on above: Order Comment: Order Added by Discern Expert. Performed By: #### 2 771262, 3202768, 01121017, 8159825, 8786173, 04023142 ####[address] [address] Monocytes/Leukocytes Auto (Bld) [Pure # fraction] 0.6 E9/L Normal 0.2-1.0 [facility] Comment on above: Order Comment: Order Added by Discern Expert. Performed By: #### 2 763924, 6310664, 54109593, 7246702, 3841610, 93471688 ####[address] [address] Neutrophils/100 WBC (Bld) 43.6 % Normal 36.0-75.0 [facility] Comment on above: Order Comment: Order Added by Discern Expert. Performed By: #### 2 387989, 9732644, 73261267, 0804883, 4603636, 93812842 ####[address] [place] [address] Neutrophils/Leukocyte s Auto (Bld) [Pure # fraction] 3.0 E9/L Normal 2.0-7.5 [facility] Comment on above: Order Comment: Order Added by Discern Expert. Performed By: #### 2 988601, 1174791, 12258874, 3643628, 6480341, 89297336 ####[address] [place] [address] BMPon 08-15-2022 Anion gap [Moles/Vol] 15 mmol/L Normal 6-16 [facility] Comment on above: Performed By: #### 2 221291, 1922244, 72917595, 7662273, 9249692, 32836592 ####[facility] [address] [place] [address] Calcium [Mass/Vol] 9.8 mg/dL Normal 8.9-11.1 [facility] Comment on above: Performed By: #### 2 935543, 4949787, 07557987, 1913572, 2397512, 34793882 ####[facility] [address] [place] [address] Chloride [Moles/Vol] 105 mmol/L Normal 101-111 [facility] Comment on above: Performed By: #### 2 445777, 2309604, 26822814, 5395292, 8168319, 11249445 ####[facility] [address] [place] [address] CO2 [Moles/Vol] 23 mmol/L Normal 21-31 [facility] Comment on above: Performed By: #### 2 762456, 6053913, 54166739, 3644762, 7487840, 21121500 ####[facility] [address] [facility] [place] [address] Creatinine [Mass/Vol] 1.0 mg/dL Normal 0.5-1.3 [facility] Comment on above: Performed By: #### 2 298485, 0031067, 60726396, 1391231, 4245560, 50764458 ####[facility] [address] [place] [address] Glucose [Mass/Vol] 113 mg/dL Normal 55-199 [facility] Comment on above: Result Comment: If t his glucose result represents a fasting glucose, interpretation should refer to the following reference range: 55-99 mg/dL Performed By: #### 2 334856, 3280792, 20840623, 1003772, 4044049, 49308323 ####[facility] [address] [place] [address] Potassium [Moles/Vol] 4.1 mmol/L Normal 3.5-5.3 [facility] Comment on above: Result Comment: 'Spe cimen hemolyzed. Result may be affected. Redraw is recommended.' Performed By: #### 2 202153, 8415339, 71946239, 7977059, 4003161, 91196275 ####[facility] [address] [place] [address] Sodium [Moles/Vol] 139 mmol/L Normal 135-145 [facility] Comment on above: Performed By: #### 2 079866, 2253009, 93858049, 5464548, 0253798, 44765978 ####[facility] [address] [place] [address] Urea nitrogen [Mass/Vol] 18 mg/dL Normal 5-21 [facility] Comment on above: Performed By: #### 2 027097, 8218420, 22643362, 7896860, 8153368, 85328932 ####[facility] [address] [place] [address] Urea nitrogen/Creatinine [Mass ratio] 18 No Units Normal 10-20 [facility] Comment on above: Performed By: #### 2 104609, 3482573, 23167348, 4989341, 5441884, 78306165 ####[facility] [address] [place] [address] CBC w/ Auto Diffon 3 Erythrocyte distribution width (RBC) [Ratio] 13.7 % Normal 10.9-14.2 [facility] Comment on above: Order Comment: Clott ed specimen. Redraw ordered. MLB Performed By: #### 2 106348, 7605880, 81271159, 1020004, 6962636, 37432994 ####[facility] [address] [place] [address] Hematocrit (Bld) [Volume fraction] 38.8 % Normal 34.0-46.0 [facility] Comment on above: Order Comment: Clott ed specimen. Redraw ordered. MLB Performed By: #### 2 444511, 3547772, 76891519, 0966251, 8027483, 03275505 ####[facility] [address] [place] [address] Hemoglobin (Bld) [Mass/Vol] 13.3 g/dL Normal 12.0-16.0 [facility] Comment on above: Order Comment: Clott ed specimen. Redraw ordered. MLB Performed By: #### 2 789100, 5003508, 36729544, 2001910, 1141814, 65218120 ####[facility] [address] [place] [address] MCH (RBC) [Entitic mass] 31.6 pg Normal 27.0-34.0 [facility] Comment on above: Order Comment: Clott ed specimen. Redraw ordered. MLB Performed By: #### 2 551548, 1201352, 18235679, 7299936, 5391021, 75336117 ####[facility] [address] [place] [address] MCHC (RBC) [Mass/Vol] 34.4 g/dL Normal 31.4-36.0 [facility] Comment on above: Order Comment: Clott ed specimen. Redraw ordered. MLB Performed By: #### 2 815713, 8088446, 96609346, 1601130, 2256432, 15537665 ####[facility] [address] [place] [address] MCV (RBC) [Entitic vol] 91.9 fL Normal 80.0-100.0 [facility] Comment on above: Order Comment: Clott ed specimen. Redraw ordered. MLB Performed By: #### 2 285272, 8808444, 27899649, 1108752, 6293797, 49888806 ####[facility] [address] [place] [address] Platelet mean volume (Bld) [Entitic vol] 7.9 fL Normal 6.4-10.8 [facility] Comment on above: Order Comment: Clott ed specimen. Redraw ordered. MLB Performed By: #### 2 792968, 9244555, 72073914, 3188276, 8545045, 77383217 ####[facility] [address] [place] [address] Platelets (Bld) [#/Vol] 202.0 E9/L Normal 150.0-500.0 [facility] Comment on above: Order Comment: Clott ed specimen. Redraw ordered. MLB Performed By: #### 2 651608, 3885955, 25686661, 3797272, 9854769, 42056659 ####[address] [place] [address] RBC (Bld) [#/Vol] 4.2 E12/L Low 4.3-5.9 [facility] Comment on above: Order Comment: Clott ed specimen. Redraw ordered. MLB Performed By: #### 2 968913, 4947446, 78343937, 2512106, 3566387, 17369589 ####[address] [place] [address] WBC corrected for nucl RBC Auto (Bld) [#/Vol] 6.9 E9/L Normal 4.0-11.0 [facility] Comment on above: Order Comment: Clott ed specimen. Redraw ordered. MLB Performed By: #### 2 042000, 4042944, 02334257, 2284207, 4389075, 80237837 ####[address] [place] [address] Consent for Treatmenton Consent for Treatment [id number]: 127 Normal [facility] Discharge Instructionson Discharge Instructions [id number] D:127 Normal [facility] ED Clinical Summaryon 2022 ED Clinical Summary Normal Robby ovalle [facility] ED Note-Nursingon 08-15-2022 ED Note-Nursing Normal [facility] ED Patient Education Noteon 08-15-2022 ED Patient Education Note Normal [facility] ED Patient Summaryon 023 ED Patient Summary Normal [facility] Ethanolon 08-15-2022 Ethanol [Mass/Vol] mg/dL Normal <=7 [facility] Comment on above: Performed By: #### 2 036675 ####[facility] [address] [place] [address] Hep Func Panelon 08-15-2022 Albumin [Mass/Vol] 3.9 g/dL Normal 3.3-5.0 [facility] Comment on above: Performed By: #### 2 250202, 9848789, 57832658, 0438726, 1208277, 35147375 ####[facility] [address] [place] [address] Albumin/Globulin (S) [Mass conc ratio] 1.1 Normal 1.1-2.2 [facility] Comment on above: Performed By: #### 2 808228, 5221657, 51829324, 9015749, 2674317, 09746616 ####[facility] [address] [place] [address] ALP [Catalytic activity/Vol] 85 Int._Unit/L Normal 21-98 [facility] Comment on above: Performed By: #### 2 937424, 8829538, 57963164, 3241472, 5313872, 69940516 ####[facility] [address] [place] [address] ALT No additional P-5'-P [Catalytic activity/Vol] 151 Int._Unit/L High 6-46 [facility] Comment on above: Result Comment: 'Spe cimen hemolyzed, result may be affected. Recommend redraw.' Performed By: #### 2 863413, 7090471, 21665155, 2228423, 5363398, 81972039 ####[facility] [address] [place] [address] AST [Catalytic activity/Vol] 182 Int._Unit/L High 5-43 [facility] Comment on above: Result Comment: 'Spe cimen hemolyzed, result may be affected. Recommend redraw.' Performed By: #### 2 173997, 1335777, 04745869, 8091756, 5745509, 80024349 ####[facility] [address] [place] [address] Bilirubin [Mass/Vol] 1.2 mg/dL High 0.0-1.1 [facility] Comment on above: Result Comment: 'Spe cimen hemolyzed, result may be affected. Redraw is recommended.' Performed By: #### 2 392456, 2234930, 84014908, 4517394, 1578420, 07582769 ####[facility] [address] [place] [address] Bilirubin.direct [Mass/Vol] 0.4 mg/dL Normal 0.1-0.4 [facility] Comment on above: Result Comment: 'Spe cimen hemolyzed, result may be affected. Redraw recommended.' Performed By: #### 2 278270, 7797933, 60099280, 4291787, 8635756, 74063841 ####[facility] [address] [place] [address] Bilirubin.indirect [Mass or moles/Vol] 0.8 mg/dL Normal 0.1-0.9 [facility] Comment on above: Performed By: #### 2 030867, 3763530, 52594867, 0402323, 7666034, 82362497 ####[facility] [address] [place] [address] Globulin (S) [Mass/Vol] 3.5 g/dL Normal 1.4-4.0 [facility] Comment on above: Performed By: #### 2 732927, 3753813, 24070893, 4951350, 6234057, 11731161 ####[facility] [address] [place] [address] Protein [Mass/Vol] 7.4 g/dL Normal 6.0-7.8 [facility] Comment on above: Performed By: #### 2 729147, 3926892, 78001234, 6634252, 8419997, 43677252 ####[facility] [address] [place] [address] Outside Recordson 08-15-2022 Outside Records [id number]#1.00C D:127 Normal [facility] Physician Referralon 023 Physician Referral [id number]#[id number] :127 Normal [facility] Progress Note-Nurseon 2022 Progress Note-Nurse Patient on phone wit h MHP at this time Normal [facility] Troponin 0 Hr.on 08-15-2022 Troponin I.cardiac [Mass/Vol] 4.50 pg/mL Low 10.10-27.10 [facility] Comment on above: Result Comment: The 95% CI (Confidence Interval) PPV (Positive Predictive Value) for myocardial infarction in females is 38 pg/mL, in males 51 pg/mL. The results should be used in conjunction with clinical conditions of myocardial infarction.(Access High Sensitivity Troponin I Instructions For Use, Yvrose [place], September 2017) Performed By: #### 2 087136, 0544829, 05766284, 9351787, 7070973, 49471295 ####[facility] [address] [place] [address] Valuables Checkliston 2022 Valuables Checklist [id number]#1.00C D:127 Normal [facility] XR Chest Single Viewon 08-15 XR Chest Single View Normal Fish [facility] eGFRon 08-15-2022 GFR/1.73 sq M.predicted among non-blacks MDRD (S/P/Bld) [Vol rate/Area] 78 mL/min/1.73 m2 Normal >=59 [facility] Comment on above: Order Comment: Order added by Discern Expert. Result Comment: Bead Picker justin kidney disease could be indicated at eGFR's of less than 60 mL/min/1.73m2. Kidney failure is indicated at less than 15 mL/min/1.73m2. Performed By: #### 2 014280, 4797592, 18781774, 4764940, 3245029, 44223299 ####[facility] [address] [place] [address] Ambulatory Visit Summaryon 0 08-13-2022 Ambulatory Visit Summary Normal [facility] Cholesterol [Mass/volume] in Serum or PlasmaOrdered By: Gautam Burrows on 06-08-2022 Cholesterol [Mass/Vol] 110 mg/dL 140-200 [facility] Comment on above: Chol less than 200 m g/dl low riskChol 201-239 mg/dl borderline riskChol 240 mg/dl and greater high risk Cholesterol in LDL Calc [Mas s/Vol]Ordered By: Gautam Burrows on 06-08-2022 Cholesterol in LDL [Mass/Vol] 53 mg/dL 0-100 [facility] Comment on above: LDL ATP III CLASSIFI CATIONLDL less than 100 mg/dL OptimalLDL 100-129 mg/dL Near or above optimalLDL 130-159 mg/dL Borderline highLDL 160-189 mg/dL HighLDL greater than 189 mg/dL Very high Cholesterol in VLDL Calc [Ma ss/Vol]Ordered By: Gautam Burrows on 06-08-2022 Cholesterol in VLDL [Mass/Vol] 21 mg/dL [facility] Serum or plasma high density lipoprotein (HDL) cholesterol measurementOrdered By: Gautam Burrows on 06-08-2022 Cholesterol in HDL [Mass/Vol] 35 mg/dL 35-85 [facility] Comment on above: HDL CHOL ATP-III CLA SSIFICATION Cardiovascular RiskHDL > or equal to 60 mg/dL LOWHDL < 40 mg/dL HIGH Serum or plasma total choles terol/high density lipoprotein (HDL) cholesterol mass ratOrdered By: Gautam Burrows on 06-08-2022 Cholesterol.total/Cho lesterol in HDL [Mass ratio] 3.1 {ratio} <5.0 [facility] Thyrotropin [Units/volume] i n Serum or PlasmaOrdered By: Gautam Burrows on 06-08-2022 TSH Qn 1.46 m[IU]/L 0.45-5.33 [facility] Triglyceride [Mass/volume] i n Serum or PlasmaOrdered By: Gautam Burrows on 06-08-2022 Triglyceride [Mass/Vol] 109 mg/dL 0-149 [facility] Comment on above: TRIG ATP III CLASSIF ICATIONTRIG less than 150 mg/dL NormalTRIG 150-199 mg/dL Borderline highTRIG 200-500 mg/dL High TRIG greater than 500 mg/dL Very highStandard traceable to the Center for Disease Conrtrol and Prevention (CDC) test method. Vitamin D+Metabolites [Mass/ volume] in Serum or PlasmaOrdered By: Gautam Burrows on 06-08-2022 Vitamin D+Metabolites [Mass/Vol] 23.4 ng/mL 30-100 [facility] Comment on above: VITAMIN D STATUS [...] aPTT Coag (PPP) [Time] 30.0 s 25.1-36.5 [facility] Alanine aminotransferase [En zymatic activity/volume] in Serum or PlasmaOrdered By: Ari Aguero on 06-07-2022 ALT [Catalytic activity/Vol] 109 U/L 7-52 [facility] Albumin [Mass/volume] in Ser um or Plasma by Bromocresol green (BCG) dye binding methoOrdered By: Ari Aguero on 06-07-2022 Albumin BCG dye [Mass/Vol] 4.1 g/dL 3.5-5.7 [facility] Alkaline phosphatase [Enzyma tic activity/volume] in Serum or PlasmaOrdered By: Ari Aguero on 06-07-2022 ALP [Catalytic activity/Vol] 87 U/L 34-104 [facility] Amphetamine Screen Ql (U)Ord ered By: Ari Aguero on 06-07-2022 Amphetamines Ql (U) Positive Negative [facility] Aspartate aminotransferase [ Enzymatic activity/volume] in Serum or PlasmaOrdered By: Ari Aguero on 06-07-2022 AST [Catalytic activity/Vol] 122 U/L 13-39 [facility] Automated erythrocytes count in urine sediment (number/area)Ordered By: Ari Aguero on 06-07-2022 RBC Auto (Urine sed) [#/Area] 3-4 [HPF] 0-4 [facility] Automated leukocytes count i n urine sediment (number/area)Ordered By: Ari Aguero on 06-07-2022 WBC Auto (Urine sed) [#/Area] 0-1 [HPF] 0-4 [facility] Automated urine hyaline cast s count (number/volume)Ordered By: Ari Aguero on 06-07-2022 Hyaline casts Auto (U) [#/Vol] 20-49 [LPF] 0-1 [facility] Barbiturates [Presence] in U rine by Screen methodOrdered By: Ari Aguero on 06-07-2022 Barbiturates Screen Ql (U) Negative Negative [facility] Basophils Auto (Bld) [#/Vol] Ordered By: Ari Aguero on 06-07-2022 Basophils (Bld) [#/Vol] 0.1 10*3/uL 0.0-0.2 [facility] Basophils/100 WBC Auto (Bld) Ordered By: Ari Aguero on 06-07-2022 Basophils/100 WBC (Bld) 0.5 % . [facility] Benzodiazepines Screen Ql (U )Ordered By: Ari Aguero on 06-07-2022 Benzodiazepines Ql (U) Negative Negative [facility] Benzoylecgonine [Presence] i n Urine by Screen methodOrdered By: Ari Aguero on 06-07-2022 Benzoylecgonine Screen Ql (U) Negative Negative [facility] Bilirubin Test strip Ql (U)O rdered By: Ari Aguero on 06-07-2022 Bilirubin Ql (U) Negative Negative [facility] Bilirubin.total [Mass/volume ] in Serum or PlasmaOrdered By: Ari Aguero on 06-07-2022 Bilirubin [Mass/Vol] 0.9 mg/dL 0.3-1.0 [facility] Calcium [Mass/volume] in Ser um or PlasmaOrdered By: Ari Aguero on 06-07-2022 Calcium [Mass/Vol] 9.2 mg/dL 8.6-10.3 [facility] Cannabinoids [Presence] in U rine by Screen methodOrdered By: Ari Aguero on 06-07-2022 Cannabinoids Screen Ql (U) Negative Negative [facility] Comment on above: These are unconfirme d results and should not be used for legal purposes. Drug Cut-Off Concentration: AMPH 1000 ng/mL JANELL 200 ng/mL JAMES 200 ng/mL COCM 300 ng/mL OP 300 ng/mL PCP 25 ng/mL THC 20 ng/mL Carbon dioxide, total [Moles /volume] in Serum or PlasmaOrdered By: Ari Aguero on 06-07-2022 CO2 [Moles/Vol] 23.1 mmol/L 21.0-31.0 [facility] Casts typing in urine sedime nt by light microscopyOrdered By: Ari Aguero on 06-07-2022 Casts LM Nom (Urine sed) None seen [LPF] None Seen [facility] Chloride [Moles/volume] in S marbella or PlasmaOrdered By: Ari Aguero on 06-07-2022 Chloride [Moles/Vol] 105 mmol/L 98-107 [facility] Coarse granular casts count in urine sediment by microscopy low power field (number/aOrdered By: Ari Aguero on 06-07-2022 Coarse Granular Casts LM.LPF (Urine sed) [#/Area] 0-1 [LPF] 0-1 [facility] Color Auto (U)Ordered By: Robin red More on 06-07-2022 Color (U) Dark yellow Yellow [facility] Creatinine [Mass/volume] in Serum or PlasmaOrdered By: Ari Aguero on 06-07-2022 Creatinine [Mass/Vol] 0.84 mg/dL 0.60-1.20 [facility] Eosinophils Auto (Bld) [#/Vo l]Ordered By: Ari Aguero on 06-07-2022 Eosinophils (Bld) [#/Vol] 0.0 10*3/uL 0.0-0.45 [facility] Eosinophils/100 WBC Auto (Bl d)Ordered By: Ari Aguero on 06-07-2022 Eosinophils/100 WBC (Bld) 0.2 % . [facility] Erythrocyte distribution wid th Auto (RBC) [Ratio]Ordered By: Ari Aguero on 06-07-2022 Erythrocyte distribution width (RBC) [Ratio] 13.5 % 11.9-15.3 [facility] Ethanol [Mass/volume] in Ser um or PlasmaOrdered By: Ari Aguero on 06-07-2022 Ethanol [Mass/Vol] mg/dL [facility] Ethanol [Mass/Vol] TNP [facility] Comment on above: Test not performed Globulin Calc (S) [Mass/Vol] Ordered By: Ari Aguero on 06-07-2022 Globulin (S) [Mass/Vol] 3.5 g/dL [facility] Glucose [Mass/volume] in Ser um or PlasmaOrdered By: Ari Aguero on 06-07-2022 Glucose [Mass/Vol] 82 mg/dL 70-100 [facility] Comment on above: ADA recommended refe rence rangeRandom Glucose Reference Range is dependent on time and content of last meal. Glucose of more than 200 mg/dL in a nonstressed, ambulatory subject supports the diagnosis of Diabetes Mellitus. HCG ( test) IA.rapi d Ql (U)Ordered By: Ari Aguero on 06-07-2022 HCG ( test) Ql (U) Negative [facility] Hematocrit Auto (Bld) [Volum e fraction]Ordered By: Ari Aguero on 06-07-2022 Hematocrit (Bld) [Volume fraction] 40.7 % 34.0-46.4 [facility] Hemoglobin [Mass/volume] in BloodOrdered By: Ari Aguero on 06-07-2022 Hemoglobin (Bld) [Mass/Vol] 13.6 g/dL 11.8-15.4 [facility] Ketones Auto test strip (U) [Mass/Vol]Ordered By: Ari Aguero on 06-07-2022 Ketones (U) [Mass/Vol] 2+ Negative [facility] Laboratory - CoagulationOrde red By: Ari Aguero on 06-07-2022 PT Coag (PPP) [Time] 12.7 s 9.0-12.9 [facility] Leukocytes [#/volume] correc jose for nucleated erythrocytes in Blood by Automated counOrdered By: Ari Aguero on 06-07-2022 WBC corrected for nucl RBC Auto (Bld) [#/Vol] 13.5 10*3/uL 3.8-11.6 [facility] Lipase [Enzymatic activity/v olume] in Serum or PlasmaOrdered By: Ari Aguero on 06-07-2022 Lipase [Catalytic activity/Vol] 10.0 U/L 11.0-82.0 [facility] Lymphocytes Auto (Bld) [#/Vo l]Ordered By: Ari Aguero on 06-07-2022 Lymphocytes (Bld) [#/Vol] 1.6 10*3/uL 1.00-4.8 [facility] Lymphocytes/100 WBC Auto (Bl d)Ordered By: Ari Aguero on 06-07-2022 Lymphocytes/100 WBC (Bld) 11.6 % . [facility] MCH Auto (RBC) [Entitic mass ]Ordered By: Ari Aguero on 06-07-2022 MCH (RBC) [Entitic mass] 30.6 pg 24.7-34.3 [facility] MCHC Auto (RBC) [Mass/Vol]Or dered By: Ari Aguero on 06-07-2022 MCHC (RBC) [Mass/Vol] 33.4 g/dL 32.0-35.0 [facility] MCV Auto (RBC) [Entitic vol] Ordered By: Ari Aguero on 06-07-2022 MCV (RBC) [Entitic vol] 91.7 fL 80-100 [facility] Monocyte distribution width [Entitic volume] in Blood by AutomatedOrdered By: Ari Aguero on 06-07-2022 Monocyte distribution width Auto (Bld) [Entitic vol] 20.34 % 0.00-20.00 [facility] Comment on above: For adults in ED, MD W > 20.0 may be associated with a higher risk of sepsis during the first 12 hrs of hospital admission Monocytes Auto (Bld) [#/Vol] Ordered By: Ari Aguero on 06-07-2022 Monocytes (Bld) [#/Vol] 0.6 10*3/uL 0.0-0.8 [facility] Monocytes/100 WBC Auto (Bld) Ordered By: Ari Aguero on 06-07-2022 Monocytes/100 WBC (Bld) 4.7 % . [facility] Neutrophils Auto (Bld) [#/Vo l]Ordered By: Ari Aguero on 06-07-2022 Neutrophils (Bld) [#/Vol] 11.2 10*3/uL 1.8-7.7 [facility] Neutrophils/100 WBC Auto (Bl d)Ordered By: Ari Aguero on 06-07-2022 Neutrophils/100 WBC (Bld) 83.0 % . [facility] Nitrite Test strip Ql (U)Ord ered By: Ari Aguero on 06-07-2022 Nitrite Ql (U) Negative Negative [facility] No Panel InformationOrdered By: Ari Aguero on 06-07-2022 Estimated GFR (CKD-EPI) > 60.0 mL/Min [facility] Creatinine Clearance (Chem 91.63 [facility] [facility] Nucleated erythrocytes [Pres ence] in Blood by Automated countOrdered By: Ari Aguero on 06-07-2022 Nucleated RBC Auto Ql (Bld) 0.1 /100{WBC} 0-0.5 [facility] Opiates [Presence] in Urine by Screen methodOrdered By: Ari Aguero on 06-07-2022 Opiates Screen Ql (U) Negative Negative [facility] Phencyclidine Screen Ql (U)O rdered By: Ari Aguero on 06-07-2022 Phencyclidine Ql (U) Negative Negative [facility] Platelet mean volume Auto (B ld) [Entitic vol]Ordered By: Ari Aguero on 06-07-2022 Platelet mean volume (Bld) [Entitic vol] 8.5 fL 6.3-10.7 [facility] Platelet poor plasma interna tional normalized ratio (INR) by coagulation assay (relatOrdered By: Ari Aguero on 06-07-2022 INR Coag (PPP) [Relative time] 1.1 {INR} [facility] Comment on above: INR Therapeutic Rang [...] 06-07-2022 Platelets (Bld) [#/Vol] 142 10*3/uL 150-450 [facility] Potassium [Moles/volume] in Serum or PlasmaOrdered By: Ari Aguero on 06-07-2022 Potassium [Moles/Vol] 3.7 mmol/L 3.5-5.1 [facility] Protein Auto test strip (U) [Mass/Vol]Ordered By: Ari Aguero on 06-07-2022 Protein (U) [Mass/Vol] 30 mg/dL Negative [facility] Protein [Mass/volume] in Ser um or PlasmaOrdered By: Ari Aguero on 06-07-2022 Protein [Mass/Vol] 7.6 g/dL 6.4-8.9 [facility] RBC Auto (Bld) [#/Vol]Ordere d By: Ari Aguero on 06-07-2022 RBC (Bld) [#/Vol] 4.44 10*6/uL 3.60-5.00 [facility] Serum or plasma albumin/glob ulin mass ratioOrdered By: Ari Aguero on 06-07-2022 Albumin/Globulin [Mass ratio] 1.2 {ratio} [facility] Serum or plasma anion gap de terminationOrdered By: Ari Aguero on 06-07-2022 Anion gap [Moles/Vol] 15.6 mmol/L 6.0-15.0 [facility] Sodium [Moles/volume] in Ser um or PlasmaOrdered By: Ari Aguero on 06-07-2022 Sodium [Moles/Vol] 140 mmol/L 136-145 [facility] Specific gravity Auto test s trip (U) [Rel density]Ordered By: Ari Aguero on 06-07-2022 Specific gravity (U) [Rel density] 1.032 1.001-1.030 [facility] Squamous epithelial cells de tection in urine sediment by light microscopyOrdered By: Ari Aguero on 06-07-2022 Epithelial cells.squamous LM Ql (Urine sed) 5-9 [HPF] 0-2 [facility] Urea nitrogen [Mass/volume] in Serum or PlasmaOrdered By: Ari Aguero on 06-07-2022 Urea nitrogen [Mass/Vol] 18 mg/dL 7-25 [facility] Urine bacteria detection by automated methodOrdered By: Ari Aguero on 06-07-2022 Bacteria Auto Ql (U) None seen None Seen [facility] Urine clarity by refractomet ry automatedOrdered By: Ari Aguero on 06-07-2022 Clarity Refractometry automated (U) Clear Clear [facility] Urine glucose measurement by automated test strip (mass/volume)Ordered By: Ari Aguero on 06-07-2022 Glucose Auto test strip (U) [Mass/Vol] Normal mg/dL Normal [facility] Urine hemoglobin detection b y automated test stripOrdered By: Ari Aguero on 06-07-2022 Hemoglobin Auto test strip Ql (U) Negative Negative [facility] Urine leukocyte esterase det ection by automated test stripOrdered By: Ari Aguero on 06-07-2022 Leukocyte esterase Auto test strip Ql (U) Negative Negative [facility] Urine sediment erythrocyte c ast count by microscopy (number/low power field)Ordered By: Ari Aguero on 06-07-2022 RBC casts LM.LPF (Urine sed) [#/Area] 0-1 [LPF] None Seen [facility] Urobilinogen Auto test strip (U) [Mass/Vol]Ordered By: Ari Aguero on 06-07-2022 Urobilinogen (U) [Mass/Vol] Normal mg/dL Normal [facility] WBC Auto (Bld) [#/Vol]Ordere d By: Ari Aguero on 06-07-2022 WBC (Bld) [#/Vol] 13.5 10*3/uL 3.8-11.6 [facility] pH Auto test strip (U)Ordere d By: Ari Aguero on 06-07-2022 pH (U) 5.5 [pH] 5.0-9.0 [facility] Alanine aminotransferase [En zymatic activity/volume] in Serum or PlasmaOrdered By: Imad Asaad on 04-24-2022 ALT [Catalytic activity/Vol] 48 U/L 7-52 [facility] Albumin [Mass/volume] in Ser um or Plasma by Bromocresol green (BCG) dye binding methoOrdered By: Imad Asaad on 04-24-2022 Albumin BCG dye [Mass/Vol] 4.2 g/dL 3.5-5.7 [facility] Alkaline phosphatase [Enzyma tic activity/volume] in Serum or PlasmaOrdered By: Imad Asaad on 04-24-2022 ALP [Catalytic activity/Vol] 85 U/L 34-104 [facility] Aspartate aminotransferase [ Enzymatic activity/volume] in Serum or PlasmaOrdered By: Imad Asaad on 04-24-2022 AST [Catalytic activity/Vol] 48 U/L 13-39 [facility] Basophils Auto (Bld) [#/Vol] Ordered By: Imad Asaad on 04-24-2022 Basophils (Bld) [#/Vol] 0.1 10*3/uL 0.0-0.2 [facility] Basophils/100 WBC Auto (Bld) Ordered By: Imad Asaad on 04-24-2022 Basophils/100 WBC (Bld) 1.2 % . [facility] Bilirubin.direct [Mass/volum e] in Serum or PlasmaOrdered By: Imad Asaad on 04-24-2022 Bilirubin.direct [Mass/Vol] 0.10 mg/dL 0.03-0.18 [facility] Bilirubin.total [Mass/volume ] in Serum or PlasmaOrdered By: Imad Asaad on 04-24-2022 Bilirubin [Mass/Vol] 0.3 mg/dL 0.3-1.0 [facility] Complete Blood Count Auto Di ffon 04-24-2022 Basophils (Bld) [#/Vol] 0.016188388 10*3/uL Normal 0.0-0.2 10*3/uL [facility] Other Basophils/100 WBC (Bld) 1.200 % . % [facility] Other Eosinophils (Bld) [#/Vol] 0.865310335 10*3/uL Normal 0.0-0.45 10*3/uL [facility] Other Eosinophils/100 WBC (Bld) 1.200 % . % [facility] Other Erythrocyte distribution width (RBC) [Ratio] 13.200 % Normal 11.9-15.3 % [facility] Other Hematocrit (Bld) [Volume fraction] 44.200 % Normal 34.0-46.4 % [facility] Other Hemoglobin (Bld) [Mass/Vol] 14.052934 g/dL Normal 11.8-15.4 g/dL [facility] Other Lymphocytes (Bld) [#/Vol] 3.875460676 10*3/uL Normal 1.00-4.8 10*3/uL [facility] Other Lymphocytes/100 WBC (Bld) 39.000 % . % [facility] Other MCH (RBC) [Entitic mass] 31.8000 pg Normal 24.7-34.3 pg [facility] Other MCV (RBC) [Entitic vol] 94.5000 fL Normal 80-100 fL [facility] Other Monocytes (Bld) [#/Vol] 0.251901954 10*3/uL Normal 0.0-0.8 10*3/uL [facility] Other Monocytes/100 WBC (Bld) 6.000 % . % [facility] Other Neutrophils (Bld) [#/Vol] 4.926989895 10*3/uL Normal 1.8-7.7 10*3/uL [facility] Other Neutrophils/100 WBC (Bld) 52.600 % . % [facility] Other Platelet mean volume (Bld) [Entitic vol] 7.9000 fL Normal 6.3-10.7 fL [facility] Other WBC (Bld) [#/Vol] 7.528928136 10*3/uL Normal 3.8 -11.6 10*3/uL [facility] Other Complete Blood Count Auto Diff 7.6 10*3/uL Normal 3.8-11.6 10*3/uL [facility] Other Complete Blood Count Auto Diff 33.6 g/dL Normal 32.0-35.0 g/dL [facility] Other Complete Blood Count Auto Diff 0.5 /100{WBC} Normal 0-0.5 /100{WBC} [facility] Other Eosinophils Auto (Bld) [#/Vo l]Ordered By: Imad Asaad on 04-24-2022 Eosinophils (Bld) [#/Vol] 0.1 10*3/uL 0.0-0.45 [facility] Eosinophils/100 WBC Auto (Bl d)Ordered By: Imad Asaad on 04-24-2022 Eosinophils/100 WBC (Bld) 1.2 % . [facility] Erythrocyte distribution wid th Auto (RBC) [Ratio]Ordered By: Imad Asaad on 04-24-2022 Erythrocyte distribution width (RBC) [Ratio] 13.2 % 11.9-15.3 [facility] Erythrocytes [#/volume] in B lood by Automated countOrdered By: Imad Asaad on 04-24-2022 RBC (Bld) [#/Vol] 4.67 10*6/uL 3.60-5.00 [facility] Globulin Calc (S) [Mass/Vol] Ordered By: Imad Asaad on 04-24-2022 Globulin (S) [Mass/Vol] 3.9 g/dL [facility] HCV genotyping ser/plas ampl ified probeOrdered By: ad Asa on 04-24-2022 HCV genotype MOISES+probe Nom 1a . [facility] HIV 1/O/2 Antigen/Antibodyon 04-24-2022 HIV 1/O/2 Antigen/Antibody Non-Reactive . [facility] Other HIV 1 and HIV-2 antibody ass ay with HIV-1 p24 antigen detectionOrdered By: Imad Asaad on 04-24-2022 HIV 1+2 Ab+HIV1 p24 Ag IA Ql Non-Reactive Non Reactive [facility] Comment on above: HIV NegativeHIV-1/HI V-2 antibodies and HIV-1 p24 antigen were NOTdetected. There is no laboratory evidence of HIV infection.Performed at: [address] Director: Adis Bhatia PhD, Phone: [phone] Hematocrit Auto (Bld) [Volum e fraction]Ordered By: Imad Asaad on 04-24-2022 Hematocrit (Bld) [Volume fraction] 44.2 % 34.0-46.4 [facility] Hemoglobin [Mass/volume] in BloodOrdered By: Imad Asaad on 04-24-2022 Hemoglobin (Bld) [Mass/Vol] 14.8 g/dL 11.8-15.4 [facility] Hep B Real-Time PCR, Quanton 04-24-2022 Hep B Real-Time PCR, Quant Not detected . [facility] Other Hep B Real-Time PCR, Quant [facility] Other Hep C Genotyping Non Reflexo n 04-24-2022 Hep C Genotyping Non Reflex 1a . [facility] Other Hep C RT-PCR, Qnt (Non-Graph )on 04-24-2022 Hep C RT-PCR, Qnt (Non-Graph) [id number] . [facility] Other Hep C RT-PCR, Qnt (Non-Graph) 5.912 . [facility] Other Hepatic Panelon 04-24-2022 Albumin [Mass/Vol] 4.853866 g/dL Normal 3.5-5.7 g/dL [facility] Other Bilirubin [Mass/Vol] 0.2539803 mg/dL Normal 0.3- 1.0 mg/dL [facility] Other Bilirubin.indirect [Mass/Vol] 0.76341369 mg/dL Normal 0.03-0.18 mg/dL [facility] Other Protein [Mass/Vol] 8.710938 g/dL Normal 6.4-8.9 g/dL [facility] Other Hepatic Panel 0.2 mg/dL [facility] Other Hepatic Panel 3.9 g/dL [facility] Other Hepatitis A Antibody Totalon 04-24-2022 Hepatitis A Antibody Total Negative Negative [facility] Other Hepatitis A virus Ab [Presen ce] in Serum by ImmunoassayOrdered By: Kanchan Sanchez on 04-24-2022 HAV Ab IA Ql (S) Negative Negative [facility] Comment on above: Performed at: [address] [id number] Director: Adis Bhatia PhD, Phone: [phone] Hepatitis B Core Antibodyon 04-24-2022 Hepatitis B Core Antibody Positive Critically abnormal Negative [facility] Other Hepatitis B virus surface Ag [Presence] in Serum or Plasma by ImmunoassayOrdered By: Kanchan Sanchez on 04-24-2022 HBV surface Ag IA Ql Negative Negative [facility] Hepatitis C virus RNA [log u nits/volume] (viral load) in Serum or Plasma by MOISES withOrdered By: Kanchan Sanchez on 04-24-2022 HCV RNA MOISES+probe [Log units/Vol] [id number] [IU]/mL . [facility] HCV RNA MOISES+probe [Log units/Vol] 5.912 . [facility] Comment on above: Result Units: log10 IU/mL Leukocytes [#/volume] correc jose for nucleated erythrocytes in Blood by Automated counOrdered By: Kanchan Sanchez on 04-24-2022 WBC corrected for nucl RBC Auto (Bld) [#/Vol] 7.6 10*3/uL 3.8-11.6 [facility] Lymphocytes Auto (Bld) [#/Vo l]Ordered By: Imad Surajad on 04-24-2022 Lymphocytes (Bld) [#/Vol] 3.0 10*3/uL 1.00-4.8 [facility] Lymphocytes/100 WBC Auto (Bl d)Ordered By: Imad Asaad on 04-24-2022 Lymphocytes/100 WBC (Bld) 39.0 % . [facility] MCH Auto (RBC) [Entitic mass ]Ordered By: Imad Asaad on 04-24-2022 MCH (RBC) [Entitic mass] 31.8 pg 24.7-34.3 [facility] MCHC Auto (RBC) [Mass/Vol]Or dered By: Imad Asaad on 04-24-2022 MCHC (RBC) [Mass/Vol] 33.6 g/dL 32.0-35.0 [facility] MCV Auto (RBC) [Entitic vol] Ordered By: Imad Asaad on 04-24-2022 MCV (RBC) [Entitic vol] 94.5 fL 80-100 [facility] Monocytes Auto (Bld) [#/Vol] Ordered By: Imad Asaad on 04-24-2022 Monocytes (Bld) [#/Vol] 0.5 10*3/uL 0.0-0.8 [facility] Monocytes/100 WBC Auto (Bld) Ordered By: Imad Asaad on 04-24-2022 Monocytes/100 WBC (Bld) 6.0 % . [facility] Neutrophils Auto (Bld) [#/Vo l]Ordered By: Imad Asaad on 04-24-2022 Neutrophils (Bld) [#/Vol] 4.0 10*3/uL 1.8-7.7 [facility] Neutrophils/100 WBC Auto (Bl d)Ordered By: Imad Asaad on 04-24-2022 Neutrophils/100 WBC (Bld) 52.6 % . [facility] No Panel InformationOrdered By: Imad Asaad on 04-24-2022 Hepatitis B Core Total Antibody Positive Negative [facility] Hepatitis B DNA Test Information See comment . [facility] Comment on above: The reportable range for this assay is 10 IU/mL to 1billion IU/mL.Performed at: [facility] [id number] Director: Gunnar Shanks MD, Phone: [phone] Hepatitis C RNA (PCR) Interpret See comment . [facility] Comment on above: The quantitative ran ge of this assay is 15 IU/mL to 100million IU/mL. Hepatitis Delta Antibody See comment [facility] Comment on above: See report. Scanned copy available in EMR. Herpes Simplex Virus Note 2 See comment . [facility] Comment on above: This test was develo ped and its performance characteristicsdetermined by [employer]. It has not been cleared or approvedby the U.S. Food and Drug Administration.The FDA has determined that such clearance or approval isnot necessary. This test is used for clinical purposes. Itshould not be regarded as investigational or for research.Performed at: [facility] [id number] Director: Gunnar Shanks MD, Phone: [phone] Nucleated erythrocytes [Pres ence] in Blood by Automated countOrdered By: Imad Asaad on 04-24-2022 Nucleated RBC Auto Ql (Bld) 0.5 /100{WBC} 0-0.5 [facility] Platelet mean volume Auto (B ld) [Entitic vol]Ordered By: Imad [facility] on 04-24-2022 Platelet mean volume (Bld) [Entitic vol] 7.9 fL 6.3-10.7 [facility] Platelets [#/volume] in Bloo d by Automated countOrdered By: Imad [facility] on 04-24-2022 Platelets (Bld) [#/Vol] 390 10*3/uL 150-450 [facility] Protein [Mass/volume] in Ser um or PlasmaOrdered By: [facility] Protein [Mass/Vol] 8.1 g/dL 6.4-8.9 [facility] Serum hepatitis B virus surf lady antibody detectionOrdered By: [facility] on 04-24-2022 HBV surface Ab Ql (S) Non-Reactive . [facility] Comment on above: Non Reactive: Incons istent with immunity, less than 10 mIU/mL Reactive: Consistent with immunity, greater than 9.9 mIU/mL Serum or plasma albumin/glob ulin mass ratioOrdered By: [facility] on 04-24-2022 Albumin/Globulin [Mass ratio] 1.1 {ratio} [facility] Serum or plasma hepatitis B virus DNA measurement (units/volume) (viral load) by probOrdered By: [facility] on 04-24-2022 HBV DNA MOISES+probe Qn Not detected . [facility] Serum or plasma hepatitis B virus DNA viral load by probe and target amplification meOrdered By: [facility] on 04-24-2022 HBV DNA MOISES+probe [#/Vol] N/A [facility] HBV DNA MOISES+probe [Log units/Vol] See comment . [facility] Comment on above: Result Units: log10 IU/mLUnable to calculate result since non-numeric resultobtained for component test. Serum or plasma non-glucuron idated bilirubin measurement (mass/volume)Ordered By: [facility] on 04-24-2022 Bilirubin.indirect [Mass/Vol] 0.2 mg/dL [facility] WBC Auto (Bld) [#/Vol]Ordere d By: Imad Surajad on 04-24-2022 WBC (Bld) [#/Vol] 7.6 10*3/uL 3.8-11.6 [facility] Activated partial thrombopla stin time (aPTT) in platelet poor plasma by coagulation aOrdered By: Pavel Elizondo on 04-11-2022 aPTT Coag (PPP) [Time] 26.1 s 25.1-36.5 [facility] Amphetamine Screen Ql (U)Ord ered By: Pavel Elizondo on 04-11-2022 Amphetamines Ql (U) Negative Negative [facility] Automated erythrocytes count in urine sediment (number/area)Ordered By: Pavel Elizondo on 04-11-2022 RBC Auto (Urine sed) [#/Area] 1-2 [HPF] 0-4 [facility] Automated leukocytes count i n urine sediment (number/area)Ordered By: Pavel Elizondo on 04-11-2022 WBC Auto (Urine sed) [#/Area] 1-2 [HPF] 0-4 [facility] Automated urine hyaline cast s count (number/volume)Ordered By: Pavel Elizondo on 04-11-2022 Hyaline casts Auto (U) [#/Vol] 1-2 [LPF] 0-1 [facility] Barbiturates [Presence] in U rineOrdered By: Pavel Elizondo on 04-11-2022 Barbiturates Ql (U) Negative Negative [facility] Basophils Auto (Bld) [#/Vol] Ordered By: Pavel Elizondo on 04-11-2022 Basophils (Bld) [#/Vol] 0.0 10*3/uL 0.0-0.2 [facility] Basophils/100 WBC Auto (Bld) Ordered By: Pavel Elizondo on 04-11-2022 Basophils/100 WBC (Bld) 0.3 % . [facility] Benzodiazepines [Presence] i n UrineOrdered By: Pavel Elizondo on 04-11-2022 Benzodiazepines Ql (U) Negative Negative [facility] Bilirubin Test strip Ql (U)O rdered By: Pavel Elizondo on 04-11-2022 Bilirubin Ql (U) 1+ Negative [facility] Calcium [Mass/volume] in Ser um or PlasmaOrdered By: Pavel Elizondo on 04-11-2022 Calcium [Mass/Vol] 8.7 mg/dL 8.2-10.2 [facility] Cannabinoids [Presence] in U rine by Screen methodOrdered By: Pavel Elizondo on 04-11-2022 Cannabinoids Screen Ql (U) Negative Negative [facility] Comment on above: These are unconfirme d results and should not be used for legal purposes. Drug Cut-Off Concentration: AMPH 1000 ng/mL JANELL 200 ng/mL JAMES 200 ng/mL COCM 300 ng/mL OP 300 ng/mL PCP 25 ng/mL THC 20 ng/mL Carbon dioxide, total [Moles /volume] in Serum or PlasmaOrdered By: Pavel Elizondo on 04-11-2022 CO2 [Moles/Vol] 20.4 mmol/L 22.0-30.0 [facility] Casts typing in urine sedime nt by light microscopyOrdered By: Pavel Elizondo on 04-11-2022 Casts LM Nom (Urine sed) None seen [LPF] None Seen [facility] Chloride [Moles/volume] in S marbella or PlasmaOrdered By: Pavel Elizondo on 04-11-2022 Chloride [Moles/Vol] 100 mmol/L 95-114 [facility] Color Auto (U)Ordered By: Venkatesh Elizondo on 04-11-2022 Color (U) Dark yellow Yellow [facility] Creatinine and Glomerular fi ltration rate.predicted panel (S/P/Bld)Ordered By: Pavel Elizondo on 04-11-2022 Creatinine [Mass/Vol] 0.44 mg/dL 0.44-1.03 [facility] Eosinophils Auto (Bld) [#/Vo l]Ordered By: Pavel Elizondo on 04-11-2022 Eosinophils (Bld) [#/Vol] 0.0 10*3/uL 0.0-0.45 [facility] Eosinophils/100 WBC Auto (Bl d)Ordered By: Pavel Elizondo on 04-11-2022 Eosinophils/100 WBC (Bld) 0.5 % . [facility] Erythrocyte distribution wid th Auto (RBC) [Ratio]Ordered By: Pavel Elizondo on 04-11-2022 Erythrocyte distribution width (RBC) [Ratio] 13.5 % 11.9-15.3 [facility] Estimated glomerular filtrat ion rate (GFR) non- AmericanOrdered By: Pavel Elizondo on 04-11-2022 GFR/1.73 sq M.predicted among non-blacks MDRD (S/P/Bld) [Vol rate/Area] > 60 mL/Min [facility] Glucose [Mass/volume] in Ser um or PlasmaOrdered By: Pavel Elizondo on 04-11-2022 Glucose [Mass/Vol] 60 mg/dL 70-100 [facility] Comment on above: ADA recommended refe rence rangeRandom Glucose Reference Range is dependent on time and content of last meal. Glucose of more than 200 mg/dL in a nonstressed, ambulatory subject supports the diagnosis of Diabetes Mellitus. HCG ( test) IA.rapi d Ql (U)Ordered By: Pavel Elizondo on 04-11-2022 HCG ( test) Ql (U) Negative [facility] Hematocrit Auto (Bld) [Volum e fraction]Ordered By: Pavel Elizondo on 04-11-2022 Hematocrit (Bld) [Volume fraction] 42.4 % 34.0-46.4 [facility] Hemoglobin [Mass/volume] in BloodOrdered By: Pavel Eliznodo on 04-11-2022 Hemoglobin (Bld) [Mass/Vol] 14.4 g/dL 11.8-15.4 [facility] Ketones Auto test strip (U) [Mass/Vol]Ordered By: Pavel Elizondo on 04-11-2022 Ketones (U) [Mass/Vol] 3+ Negative [facility] Laboratory - Chemistry and C hemistry - challengeOrdered By: Pavel Elizondo on 04-11-2022 Magnesium [Mass/Vol] 1.7 mg/dL 1.6-2.6 [facility] Laboratory - CoagulationOrde red By: Pavel Elizondo on 04-11-2022 PT Coag (PPP) [Time] 12.1 s 9.0-12.9 [facility] - Drug toxicology Ordered By: Pavel Elizondo on 04-11-2022 Opiates Ql (U) Negative Negative [facility] Leukocytes [#/volume] correc jose for nucleated erythrocytes in Blood by Automated counOrdered By: Pavel Elizondo on 04-11-2022 WBC corrected for nucl RBC Auto (Bld) [#/Vol] 8.0 10*3/uL 3.8-11.6 [facility] Lymphocytes Auto (Bld) [#/Vo l]Ordered By: Pavel Elizondo on 04-11-2022 Lymphocytes (Bld) [#/Vol] 1.6 10*3/uL 1.00-4.8 [facility] Lymphocytes/100 WBC Auto (Bl d)Ordered By: Pavel Elizondo on 04-11-2022 Lymphocytes/100 WBC (Bld) 19.9 % . [facility] MCH Auto (RBC) [Entitic mass ]Ordered By: Pavel Elizondo on 04-11-2022 MCH (RBC) [Entitic mass] 31.5 pg 24.7-34.3 [facility] MCHC Auto (RBC) [Mass/Vol]Or dered By: Pavel Elizondo on 04-11-2022 MCHC (RBC) [Mass/Vol] 33.9 g/dL 32.0-35.0 [facility] MCV Auto (RBC) [Entitic vol] Ordered By: Pavel Elizondo on 04-11-2022 MCV (RBC) [Entitic vol] 93.0 fL 80-100 [facility] Monocyte distribution width [Entitic volume] in Blood by AutomatedOrdered By: Pavel Elizondo on 04-11-2022 Monocyte distribution width Auto (Bld) [Entitic vol] 18.35 % 0.00-20.00 [facility] Monocytes Auto (Bld) [#/Vol] Ordered By: Pavel Elizondo on 04-11-2022 Monocytes (Bld) [#/Vol] 0.4 10*3/uL 0.0-0.8 [facility] Monocytes/100 WBC Auto (Bld) Ordered By: Pavel Elizondo on 04-11-2022 Monocytes/100 WBC (Bld) 5.2 % . [facility] Neutrophils Auto (Bld) [#/Vo l]Ordered By: Pavel Elizondo on 04-11-2022 Neutrophils (Bld) [#/Vol] 5.9 10*3/uL 1.8-7.7 [facility] Neutrophils/100 WBC Auto (Bl d)Ordered By: Pavel Elizondo on 04-11-2022 Neutrophils/100 WBC (Bld) 74.1 % . [facility] Nitrite Test strip Ql (U)Ord ered By: Pavel Elizondo on 04-11-2022 Nitrite Ql (U) Negative Negative [facility] No Panel InformationOrdered By: Pavel Elizondo on 04-11-2022 D-Dimer Quantitative (PE/DVT) 231 ng/mL 0-243 [facility] Comment on above: The reference range [...] conditions. Estimated GFR () > 60 mL/Min [facility] Comment on above: GFR estimated refere nce range: According to KDOQI guidelines, <60 ml/min/1.73m2 is sufficient to diagnose a patient with chronic kidney disease. Pharmacy Creatinine Clearance (Chem 177.08 [facility] Nucleated erythrocytes [Pres ence] in Blood by Automated countOrdered By: Pavel Elizondo on 04-11-2022 Nucleated RBC Auto Ql (Bld) 0.1 /100{WBC} 0-0.5 [facility] Phencyclidine Screen Ql (U)O rdered By: Pavel Elizodno on 04-11-2022 Phencyclidine Ql (U) Negative Negative [facility] Platelet mean volume Auto (B ld) [Entitic vol]Ordered By: Pavel Elizondo on 04-11-2022 Platelet mean volume (Bld) [Entitic vol] 8.2 fL 6.3-10.7 [facility] Platelet poor plasma interna tional normalized ratio (INR) by coagulation assay (relatOrdered By: Pavel Elizondo on 04-11-2022 INR Coag (PPP) [Relative time] 1.0 {INR} [facility] Comment on above: INR Therapeutic Rang [...] Platelets Auto (Bld) [#/Vol] Ordered By: Pavel Elizondo on 04-11-2022 Platelets (Bld) [#/Vol] 167 10*3/uL 150-450 [facility] Potassium [Moles/volume] in Serum or PlasmaOrdered By: Pavel Elizondo on 04-11-2022 Potassium [Moles/Vol] 3.7 mmol/L 3.5-5.1 [facility] Protein Auto test strip (U) [Mass/Vol]Ordered By: Pavel Elizondo on 04-11-2022 Protein (U) [Mass/Vol] 30 mg/dL Negative [facility] RBC Auto (Bld) [#/Vol]Ordere d By: Pavel Elizondo on 04-11-2022 RBC (Bld) [#/Vol] 4.56 10*6/uL 3.60-5.00 [facility] Serum or plasma anion gap de terminationOrdered By: Pavel Elizondo on 04-11-2022 Anion gap [Moles/Vol] 19.3 mmol/L 6.0-15.0 [facility] Sodium [Moles/volume] in Ser um or PlasmaOrdered By: Pavel Elizondo on 04-11-2022 Sodium [Moles/Vol] 136 mmol/L 136-146 [facility] Specific gravity Auto test s trip (U) [Rel density]Ordered By: Pavel Elizondo on 04-11-2022 Specific gravity (U) [Rel density] 1.025 1.001-1.030 [facility] [facility] epithelial cells de tection in urine sediment by light microscopyOrdered By: Pavel Elizondo on 04-11-2022 Epithelial cells.squamous LM Ql (Urine sed) 5-9 [HPF] 0-2 [facility] Troponin I.cardiac [Mass/vol ume] in Serum or Plasma by High sensitivity methodOrdered By: Pavel Elizondo on 04-11-2022 Troponin I.cardiac High sensitivity method [Mass/Vol] 6 pg/mL 0-15 [facility] Urea nitrogen [Mass/volume] in Serum or PlasmaOrdered By: Pavel Elizondo on 04-11-2022 Urea nitrogen [Mass/Vol] 6 mg/dL 9-23 [facility] Urine bacteria detection by automated methodOrdered By: Pavel Elizondo on 04-11-2022 Bacteria Auto Ql (U) None seen None Seen [facility] Urine clarity by refractomet ry automatedOrdered By: Pavel Elizondo on 04-11-2022 Clarity Refractometry automated (U) Cloudy Clear [facility] Urine cocaine detectionOrder ed By: Pavel Elizondo on 04-11-2022 Cocaine Ql (U) Negative Negative [facility] Urine glucose measurement by automated test strip (mass/volume)Ordered By: Pavel Elizondo on 04-11-2022 Glucose Auto test strip (U) [Mass/Vol] Normal mg/dL Normal [facility] Urine hemoglobin detection b y automated test stripOrdered By: Pavel Elizondo on 04-11-2022 Hemoglobin Auto test strip Ql (U) 3+ Negative [facility] Urine leukocyte esterase det ection by automated test stripOrdered By: Pavel Elizondo on 04-11-2022 Leukocyte esterase Auto test strip Ql (U) Negative Negative [facility] Urobilinogen Auto test strip (U) [Mass/Vol]Ordered By: Pavel Elizondo on 04-11-2022 Urobilinogen (U) [Mass/Vol] mg/dL Normal [facility] WBC Auto (Bld) [#/Vol]Ordere d By: Pavel Elizondo on 04-11-2022 WBC (Bld) [#/Vol] 8.0 10*3/uL 3.8-11.6 [facility] pH Auto test strip (U)Ordere d By: Pavel Elizondo on 04-11-2022 pH (U) 6.5 [pH] 5.0-9.0 [facility] Serum or plasma ethanol judi urement (mass/volume)Ordered By: Eric Lara on 04-04-2022 Ethanol [Mass/Vol] 141 mg/dL [facility] Ethanol [Mass/Vol] 0.141 % [facility] Alkaline phosphatase [Enzyma tic activity/volume] in Serum or PlasmaOrdered By: Eric Lara on 04-03-2022 ALP [Catalytic activity/Vol] 74 U/L 32-92 [facility] Amphetamine Screen Ql (U)Ord ered By: Eric Lara on 04-03-2022 Amphetamines Ql (U) Positive Negative [facility] Aspartate aminotransferase [ Enzymatic activity/volume] in Serum or PlasmaOrdered By: Eric Lara on 04-03-2022 AST [Catalytic activity/Vol] 79 U/L 10-42 [facility] Bacterial blood cultureOrder ed By: Ari Aguero on 04-03-2022 Bacteria identified Cx Nom (Bld) NO GROWTH 5 DAYS [facility] Bacteria identified Cx Nom (Bld) NO GROWTH 5 DAYS [facility] Barbiturates [Presence] in U rineOrdered By: Eric Lara on 04-03-2022 Barbiturates Ql (U) Negative Negative [facility] Basophils Auto (Bld) [#/Vol] Ordered By: Ari Aguero on 04-03-2022 Basophils (Bld) [#/Vol] 0.1 10*3/uL 0.0-0.2 [facility] Basophils/100 WBC Auto (Bld) Ordered By: Eric Lara on 04-03-2022 Basophils/100 WBC (Bld) 1.6 % . [facility] Basophils/100 WBC Auto (Bld) Ordered By: Ari Aguero on 04-03-2022 Basophils/100 WBC (Bld) 0.8 % . [facility] Benzodiazepines [Presence] i n UrineOrdered By: Eric Lara on 04-03-2022 Benzodiazepines Ql (U) Negative Negative [facility] Bilirubin Test strip Ql (U)O rdered By: Eric Lara on 04-03-2022 Bilirubin Ql (U) Negative Negative [facility] Body fluid albumin measureme nt (mass/volume)Ordered By: Eric Lara on 04-03-2022 Albumin (Body fld) [Mass/Vol] 3.5 g/dL 3.2-5.5 [facility] C reactive protein [Mass/vol ume] in Serum or PlasmaOrdered By: Ari Aguero on 04-03-2022 CRP [Mass/Vol] 0.7 mg/dL 0.0-1.0 [facility] Calcium [Mass/volume] in Ser um or PlasmaOrdered By: Eric Lara on 04-03-2022 Calcium [Mass/Vol] 8.8 mg/dL 8.2-10.2 [facility] Cannabinoids [Presence] in U rine by Screen methodOrdered By: Eric Lara on 04-03-2022 Cannabinoids Screen Ql (U) Negative Negative [facility] Comment on above: These are unconfirme d results and should not be used for legal purposes. Drug Cut-Off Concentration: AMPH 1000 ng/mL JANELL 200 ng/mL JAMES 200 ng/mL COCM 300 ng/mL OP 300 ng/mL PCP 25 ng/mL THC 20 ng/mL Carbon dioxide, total [Moles /volume] in Serum or PlasmaOrdered By: Eric Lara on 04-03-2022 CO2 [Moles/Vol] 24.9 mmol/L 22.0-30.0 [facility] Color Auto (U)Ordered By: Anita Lara on 04-03-2022 Color (U) Yellow Yellow [facility] Creatinine and Glomerular fi ltration rate.predicted panel (S/P/Bld)Ordered By: Eric Lara on 04-03-2022 Creatinine [Mass/Vol] 0.52 mg/dL 0.44-1.03 [facility] Creatinine and Glomerular fi ltration rate.predicted panel (S/P/Bld)Ordered By: Ari Aguero on 04-03-2022 Creatinine [Mass/Vol] 0.55 mg/dL 0.44-1.03 [facility] Eosinophils Auto (Bld) [#/Vo l]Ordered By: Eric Lara on 04-03-2022 Eosinophils (Bld) [#/Vol] 0.2 10*3/uL 0.0-0.45 [facility] Eosinophils Auto (Bld) [#/Vo l]Ordered By: Ari Aguero on 04-03-2022 Eosinophils (Bld) [#/Vol] 0.1 10*3/uL 0.0-0.45 [facility] Eosinophils/100 WBC Auto (Bl d)Ordered By: Eric Lara on 04-03-2022 Eosinophils/100 WBC (Bld) 1.8 % . [facility] Eosinophils/100 WBC Auto (Bl d)Ordered By: Ari Aguero on 04-03-2022 Eosinophils/100 WBC (Bld) 1.5 % . [facility] Erythrocyte distribution wid th Auto (RBC) [Ratio]Ordered By: Ari Aguero on 04-03-2022 Erythrocyte distribution width (RBC) [Ratio] 13.3 % 11.9-15.3 [facility] Erythrocyte sedimentation ra te by Photometric methodOrdered By: Ari Aguero on 04-03-2022 ESR Photometric method (Bld) [Velocity] 9 mm/hr 0-19 [facility] Estimated glomerular filtrat ion rate (GFR) non- AmericanOrdered By: Ari Aguero on 04-03-2022 GFR/1.73 sq M.predicted among non-blacks MDRD (S/P/Bld) [Vol rate/Area] > 60 mL/Min [facility] Globulin Calc (S) [Mass/Vol] Ordered By: Eric Lara on 04-03-2022 Globulin (S) [Mass/Vol] 3.3 g/dL [facility] Hematocrit Auto (Bld) [Volum e fraction]Ordered By: Eric Lara on 04-03-2022 Hematocrit (Bld) [Volume fraction] 44.1 % 34.0-46.4 [facility] Hematocrit Auto (Bld) [Volum e fraction]Ordered By: Ari Aguero on 04-03-2022 Hematocrit (Bld) [Volume fraction] 43.6 % 34.0-46.4 [facility] Hemoglobin [Mass/volume] in BloodOrdered By: Eric Lara on 04-03-2022 Hemoglobin (Bld) [Mass/Vol] 14.8 g/dL 11.8-15.4 [facility] Hemoglobin [Mass/volume] in BloodOrdered By: Ari Aguero on 04-03-2022 Hemoglobin (Bld) [Mass/Vol] 14.5 g/dL 11.8-15.4 [facility] Ketones Auto test strip (U) [Mass/Vol]Ordered By: Eric Lara on 04-03-2022 Ketones (U) [Mass/Vol] Negative Negative [facility] Laboratory - Drug toxicology Ordered By: Eric Lara on 04-03-2022 Opiates Ql (U) Negative Negative [facility] Leukocytes [#/volume] correc jose for nucleated erythrocytes in Blood by Automated counOrdered By: Eric Lara on 04-03-2022 WBC corrected for nucl RBC Auto (Bld) [#/Vol] 8.3 10*3/uL 3.8-11.6 [facility] Leukocytes [#/volume] correc jose for nucleated erythrocytes in Blood by Automated counOrdered By: Ari Aguero on 04-03-2022 WBC corrected for nucl RBC Auto (Bld) [#/Vol] 7.0 10*3/uL 3.8-11.6 [facility] Lymphocytes Auto (Bld) [#/Vo l]Ordered By: Eric Lara on 04-03-2022 Lymphocytes (Bld) [#/Vol] 3.9 10*3/uL 1.00-4.8 [facility] Lymphocytes Auto (Bld) [#/Vo l]Ordered By: Ari Aguero on 04-03-2022 Lymphocytes (Bld) [#/Vol] 1.7 10*3/uL 1.00-4.8 [facility] Lymphocytes/100 WBC Auto (Bl d)Ordered By: Eric Lara on 04-03-2022 Lymphocytes/100 WBC (Bld) 46.7 % . [facility] Lymphocytes/100 WBC Auto (Bl d)Ordered By: Ari Aguero on 04-03-2022 Lymphocytes/100 WBC (Bld) 24.5 % . [facility] MCH Auto (RBC) [Entitic mass ]Ordered By: Eric Lara on 04-03-2022 MCH (RBC) [Entitic mass] 31.3 pg 24.7-34.3 [facility] MCH Auto (RBC) [Entitic mass ]Ordered By: Ari Aguero on 04-03-2022 MCH (RBC) [Entitic mass] 31.0 pg 24.7-34.3 [facility] MCHC Auto (RBC) [Mass/Vol]Or dered By: Eric Lara on 04-03-2022 MCHC (RBC) [Mass/Vol] 33.5 g/dL 32.0-35.0 [facility] MCHC Auto (RBC) [Mass/Vol]Or dered By: Ari Aguero on 04-03-2022 MCHC (RBC) [Mass/Vol] 33.3 g/dL 32.0-35.0 [facility] MCV Auto (RBC) [Entitic vol] Ordered By: Eric Lara on 04-03-2022 MCV (RBC) [Entitic vol] 93.4 fL 80-100 [facility] MCV Auto (RBC) [Entitic vol] Ordered By: Ari Aguero on 04-03-2022 MCV (RBC) [Entitic vol] 93.3 fL 80-100 [facility] Monocyte distribution width [Entitic volume] in Blood by AutomatedOrdered By: Eric Lara on 04-03-2022 Monocyte distribution width Auto (Bld) [Entitic vol] 20.63 % 0.00-20.00 [facility] Comment on above: For adults in ED, MD W > 20.0 may be associated with a higher risk of sepsis during the first 12 hrs of hospital admission Monocyte distribution width [Entitic volume] in Blood by AutomatedOrdered By: Ari Aguero on 04-03-2022 Monocyte distribution width Auto (Bld) [Entitic vol] 16.81 % 0.00-20.00 [facility] Monocytes Auto (Bld) [#/Vol] Ordered By: Ari Aguero on 04-03-2022 Monocytes (Bld) [#/Vol] 0.5 10*3/uL 0.0-0.8 [facility] Monocytes/100 WBC Auto (Bld) Ordered By: Eric Lara on 04-03-2022 Monocytes/100 WBC (Bld) 6.5 % . [facility] Monocytes/100 WBC Auto (Bld) Ordered By: Ari Aguero on 04-03-2022 Monocytes/100 WBC (Bld) 6.6 % . [facility] Neutrophils Auto (Bld) [#/Vo l]Ordered By: Eric Lara on 04-03-2022 Neutrophils (Bld) [#/Vol] 3.6 10*3/uL 1.8-7.7 [facility] Neutrophils Auto (Bld) [#/Vo l]Ordered By: Ari Aguero on 04-03-2022 Neutrophils (Bld) [#/Vol] 4.6 10*3/uL 1.8-7.7 [facility] Neutrophils/100 WBC Auto (Bl d)Ordered By: Eric Lara on 04-03-2022 Neutrophils/100 WBC (Bld) 43.4 % . [facility] Neutrophils/100 WBC Auto (Bl d)Ordered By: Ari Aguero on 04-03-2022 Neutrophils/100 WBC (Bld) 66.6 % . [facility] Nitrite Test strip Ql (U)Ord ered By: Eric Lara on 04-03-2022 Nitrite Ql (U) Negative Negative [facility] No Panel InformationOrdered By: Eric Lara on 04-03-2022 Pharmacy Creatinine Clearance (Chem 173.81 [facility] No Panel InformationOrdered By: Ari Aguero on 04-03-2022 Estimated GFR () > 60 mL/Min [facility] Comment on above: GFR estimated refere nce range: According to KDOQI guidelines, <60 ml/min/1.73m2 is sufficient to diagnose a patient with chronic kidney disease. Pharmacy Creatinine Clearance (Chem 141.66 [facility] Nucleated erythrocytes [Pres ence] in Blood by Automated countOrdered By: Ari Aguero on 04-03-2022 Nucleated RBC Auto Ql (Bld) 0.1 /100{WBC} 0-0.5 [facility] Phencyclidine Screen Ql (U)O rdered By: Eric Lara on 04-03-2022 Phencyclidine Ql (U) Negative Negative [facility] Platelet mean volume Auto (B ld) [Entitic vol]Ordered By: Eric Lara on 04-03-2022 Platelet mean volume (Bld) [Entitic vol] 8.0 fL 6.3-10.7 [facility] Platelet mean volume Auto (B ld) [Entitic vol]Ordered By: Ari Aguero on 04-03-2022 Platelet mean volume (Bld) [Entitic vol] 8.1 fL 6.3-10.7 [facility] Platelets Auto (Bld) [#/Vol] Ordered By: Eric Lara on 04-03-2022 Platelets (Bld) [#/Vol] 191 10*3/uL 150-450 [facility] Platelets Auto (Bld) [#/Vol] Ordered By: Ari Aguero on 04-03-2022 Platelets (Bld) [#/Vol] 179 10*3/uL 150-450 [facility] Protein Auto test strip (U) [Mass/Vol]Ordered By: Eric Lara on 04-03-2022 Protein (U) [Mass/Vol] Negative Negative [facility] Protein [Mass/volume] in Ser um or PlasmaOrdered By: Eric Lara on 04-03-2022 Protein [Mass/Vol] 6.8 g/dL 6.1-7.9 [facility] RBC Auto (Bld) [#/Vol]Ordere d By: Eric Lara on 04-03-2022 RBC (Bld) [#/Vol] 4.72 10*6/uL 3.60-5.00 [facility] RBC Auto (Bld) [#/Vol]Ordere d By: Ari Aguero on 04-03-2022 RBC (Bld) [#/Vol] 4.68 10*6/uL 3.60-5.00 [facility] Serum or plasma alanine urbina otransferase measurement without P-5'-P (enzymatic activiOrdered By: Eric Lara on 04-03-2022 ALT No additional P-5'-P [Catalytic activity/Vol] 74 U/L 10-60 [facility] Serum or plasma albumin/glob ulin mass ratioOrdered By: Eric Lara on 04-03-2022 Albumin/Globulin [Mass ratio] 1.1 {ratio} [facility] Serum or plasma anion gap de terminationOrdered By: Eric Lara on 04-03-2022 Anion gap [Moles/Vol] 13.6 mmol/L 6.0-15.0 [facility] Serum or plasma anion gap de terminationOrdered By: Ari Aguero on 04-03-2022 Anion gap [Moles/Vol] 10.4 mmol/L 6.0-15.0 [facility] Serum or plasma calcium judi urement (mass/volume)Ordered By: Ari Aguero on 04-03-2022 Calcium [Mass/Vol] 8.9 mg/dL 8.2-10.2 [facility] Serum or plasma chloride nataliia surement (moles/volume)Ordered By: Eric Lara on 04-03-2022 Chloride [Moles/Vol] 104 mmol/L 95-114 [facility] Serum or plasma chloride nataliia surement (moles/volume)Ordered By: Ari Aguero on 04-03-2022 Chloride [Moles/Vol] 103 mmol/L 95-114 [facility] Serum or plasma glucose judi urement (mass/volume)Ordered By: Eric Lara on 04-03-2022 Glucose [Mass/Vol] 88 mg/dL 70-100 [facility] Comment on above: ADA recommended refe rence rangeRandom Glucose Reference Range is dependent on time and content of last meal. Glucose of more than 200 mg/dL in a nonstressed, ambulatory subject supports the diagnosis of Diabetes Mellitus. Serum or plasma glucose judi urement (mass/volume)Ordered By: Ari Aguero on 04-03-2022 Glucose [Mass/Vol] 87 mg/dL 70-100 [facility] Comment on above: ADA recommended refe rence rangeRandom Glucose Reference Range is dependent on time and content of last meal. Glucose of more than 200 mg/dL in a nonstressed, ambulatory subject supports the diagnosis of Diabetes Mellitus. Serum or plasma potassium me asurement (moles/volume)Ordered By: Eric Lara on 04-03-2022 Potassium [Moles/Vol] 3.5 mmol/L 3.5-5.1 [facility] Serum or plasma potassium me asurement (moles/volume)Ordered By: Ari Aguero on 04-03-2022 Potassium [Moles/Vol] 4.1 mmol/L 3.5-5.1 [facility] Serum or plasma sodium measu rement (moles/volume)Ordered By: Eric Lara on 04-03-2022 Sodium [Moles/Vol] 139 mmol/L 136-146 [facility] Comment on above: Delta: 133 on Serum or plasma sodium measu rement (moles/volume)Ordered By: Ari Aguero on 04-03-2022 Sodium [Moles/Vol] 133 mmol/L 136-146 [facility] Serum or plasma total biliru bin measurement (mass/volume)Ordered By: Eric Lara on 04-03-2022 Bilirubin [Mass/Vol] 0.3 mg/dL 0.3-1.2 [facility] Serum or plasma total carbon dioxide measurement (moles/volume)Ordered By: Ari Aguero on 04-03-2022 CO2 [Moles/Vol] 23.7 mmol/L 22.0-30.0 [facility] Serum or plasma urea nitroge n measurement (mass/volume)Ordered By: Ari Aguero on 04-03-2022 Urea nitrogen [Mass/Vol] 7 mg/dL 11-03 [facility] Specific gravity Auto test s trip (U) [Rel density]Ordered By: Eric Lara on 04-03-2022 Specific gravity (U) [Rel density] 1.002 1.001-1.030 [facility] Urea nitrogen [Mass/volume] in Serum or PlasmaOrdered By: Eric Lara on 04-03-2022 Urea nitrogen [Mass/Vol] 5 mg/dL 11-03 [facility] Urine clarity by refractomet ry automatedOrdered By: Eric Lara on 04-03-2022 Clarity Refractometry automated (U) Clear Clear [facility] Urine cocaine detectionOrder ed By: Eric Lara on 04-03-2022 Cocaine Ql (U) Negative Negative [facility] Urine glucose measurement by automated test strip (mass/volume)Ordered By: Eric Lara on 04-03-2022 Glucose Auto test strip (U) [Mass/Vol] Normal mg/dL Normal [facility] Urine hemoglobin detection b y automated test stripOrdered By: Eric Lara on 04-03-2022 Hemoglobin Auto test strip Ql (U) Negative Negative [facility] Urine leukocyte esterase det ection by automated test stripOrdered By: Eric Lara on 04-03-2022 Leukocyte esterase Auto test strip Ql (U) Negative Negative [facility] Urobilinogen Auto test strip (U) [Mass/Vol]Ordered By: Eric Lara on 04-03-2022 Urobilinogen (U) [Mass/Vol] Normal mg/dL Normal [facility] WBC Auto (Bld) [#/Vol]Ordere d By: Eric Lara on 04-03-2022 WBC (Bld) [#/Vol] 8.3 10*3/uL 3.8-11.6 [facility] WBC Auto (Bld) [#/Vol]Ordere d By: Ari Aguero on 04-03-2022 WBC (Bld) [#/Vol] 7.0 10*3/uL 3.8-11.6 [facility] pH Auto test strip (U)Ordere d By: Eric Lara on 04-03-2022 pH (U) 6.0 [pH] 5.0-9.0 [facility] Acetaminophenon 03-12-2022 Acetaminophen [Mass/Vol] ug/mL Low 10-30 [facility] Comment on above: Performed By: #### C DP, CP, MG, HCG, ACET, ALCB, SALI #### [facility] [address] [place] [address] Shop Repairer: Foreign [employer] DO Acetaminophen Levelon 2022 Acetaminophen Level <5 Low 10 - 30 ug/mL [facility] CBC with Auto Differentialon 03-12-2022 Absolute Eos # 0.10 [facility] Absolute Lymph # 3.70 [facility] Absolute [place] # 0.30 [facility] Basophils (Bld) [#/Vol] 0.10 10*3/uL [facility] Basophils/100 WBC (Bld) 1 % 0 - 2 % [facility] Eosinophils/100 WBC (Bld) 1 % 0 - 4 % [facility] Hematocrit (Bld) [Volume fraction] 40.5 % 36 - 46 % [facility] Hemoglobin (Bld) [Mass/Vol] 13.3 g/dL 12.0 - 16.0 g/dL [facility] Lymphocytes/100 WBC (Bld) 44 % 24 - 44 % [facility] MCH (RBC) [Entitic mass] 31.1 pg 26 - 34 pg [facility] MCHC (RBC) [Mass/Vol] 32.8 g/dL 31 - 37 g/dL [facility] MCV (RBC) [Entitic vol] 94.8 fL 80 - 100 fL [facility] Monocytes/100 WBC (Bld) 4 % 1 - 7 % [facility] Platelet distribution width (Bld) [Ratio] 13.3 % 11.5 - 14.9 % [facility] Platelet mean volume (Bld) [Entitic vol] 7.3 fL 6.0 - 12.0 fL [facility] Platelets (Bld) [#/Vol] 301 10*3/uL [facility] RBC (Bld) [#/Vol] 4.27 10*6/uL 4.0 - 5.2 m/uL [facility] Segmented neutrophils/100 WBC (Bld) 50 % 36 - 66 % [facility] Segs Absolute 4.20 [facility] WBC (Bld) [#/Vol] 8.3 10*3/uL [facility] CBC with Diffon 03-12-2022 Abs. Basophil 0.10 k/uL Normal 0.0-0.2 [facility] Comment on above: Performed By: #### C DP, CP, MG, HCG, ACET, ALCB, SALI #### [facility] [address] [place] [address] Shop Repairer: Foreign Page DO Abs.Neutrophil (Seg) 4.20 k/uL Normal 1.3-9.1 [facility] Comment on above: Performed By: #### C DP, CP, MG, HCG, ACET, ALCB, SALI #### [facility] [address] [place] [address] Shop Repairer: Foreign Page DO Basophils/100 WBC (Bld) 1 % Normal 0-2 [facility] Comment on above: Performed By: #### C DP, CP, MG, HCG, ACET, ALCB, SALI #### [facility] [address] [place] [address] Shop Repairer: Foreign Page DO Eosinophils (Bld) [#/Vol] 0.10 10*3/uL Normal 0.0-0.4 [facility] Comment on above: Performed By: #### C DP, CP, MG, HCG, ACET, ALCB, SALI #### [facility] [address] [place] [address] Shop Repairer: Foreign Page DO Eosinophils/100 WBC (Bld) 1 % Normal 0-4 [facility] Comment on above: Performed By: #### C DP, CP, MG, HCG, ACET, ALCB, SALI #### [facility] [address] [place] [address] Shop Repairer: Foreign Page DO Erythrocyte distribution width (RBC) [Ratio] 13.3 % Normal 11.5-14.9 [facility] Comment on above: Performed By: #### C DP, CP, MG, HCG, ACET, ALCB, SALI #### [facility] [address] [place] [address] Shop Repairer: Foreign Page DO Hematocrit (Bld) [Volume fraction] 40.5 % Normal 36-46 [facility] Comment on above: Performed By: #### C DP, CP, MG, HCG, ACET, ALCB, SALI #### [facility] [address] [place] [address] Shop Repairer: Foreign Page DO Hemoglobin (Bld) [Mass/Vol] 13.3 g/dL Normal 12.0-16.0 [facility] Comment on above: Performed By: #### C DP, CP, MG, HCG, ACET, ALCB, SALI #### [facility] [address] [place] [address] Shop Repairer: Foreign Page DO Lymphocytes (Bld) [#/Vol] 3.70 10*3/uL Normal 1.0-4.8 [facility] Comment on above: Performed By: #### C DP, CP, MG, HCG, ACET, ALCB, SALI #### [facility] [address] [place] [address] Shop Repairer: Foreign Page DO Lymphocytes/100 WBC (Bld) 44 % Normal 24-44 [facility] Comment on above: Performed By: #### C DP, CP, MG, HCG, ACET, ALCB, SALI #### [facility] [place] [address] Shop Repairer: Foreign Page DO MCH (RBC) [Entitic mass] 31.1 pg Normal 26-34 [facility] Comment on above: Performed By: #### C DP, CP, MG, HCG, ACET, ALCB, SALI #### [facility] [address] [place] [address] Shop Repairer: Foreign Page DO MCHC (RBC) [Mass/Vol] 32.8 g/dL Normal 31-37 [facility] Comment on above: Performed By: #### C DP, CP, MG, HCG, ACET, ALCB, SALI #### [facility] [facility] [place] [address] Shop Repairer: Foreign Page DO MCV (RBC) [Entitic vol] 94.8 fL Normal 80-100 [facility] Comment on above: Performed By: #### C DP, CP, MG, HCG, ACET, ALCB, SALI #### [facility] [place] [address] Shop Repairer: Foreign Page DO Monocytes (Bld) [#/Vol] 0.30 10*3/uL Normal 0.1-1.3 [facility] Comment on above: Performed By: #### C DP, CP, MG, HCG, ACET, ALCB, SALI #### [facility] [address] [place] [address] Shop Repairer: Foreign Page DO Monocytes/100 WBC (Bld) 4 % Normal 1-7 [facility] Comment on above: Performed By: #### C DP, CP, MG, HCG, ACET, ALCB, SALI #### [facility] [address] [place] [address] Shop Repairer: Foreign Page DO Neutrophil (Seg) 50 % Normal 36-66 [facility] Comment on above: Performed By: #### C DP, CP, MG, HCG, ACET, ALCB, SALI #### [facility] [address] [place] [address] Shop Repairer: Foreign Page DO Platelet mean volume (Bld) [Entitic vol] 7.3 fL Normal 6.0-12.0 [facility] Comment on above: Performed By: #### C DP, CP, MG, HCG, ACET, ALCB, SALI #### [facility] [address] [place] [address] Shop Repairer: Foreign Page DO Platelets (Bld) [#/Vol] 301 10*3/uL Normal 150-450 [facility] Comment on above: Performed By: #### C DP, CP, MG, HCG, ACET, ALCB, SALI #### [facility] [address] [place] [address] Shop Repairer: Foreign Page DO RBC (Bld) [#/Vol] 4.27 10*6/uL Normal 4.0-5.2 [facility] Comment on above: Performed By: #### C DP, CP, MG, HCG, ACET, ALCB, SALI #### [facility] [address] [place] [address] Shop Repairer: Foreign Page DO WBC (Bld) [#/Vol] 8.3 10*3/uL Normal 3.5-11.0 [facility] Comment on above: Performed By: #### C DP, CP, MG, HCG, ACET, ALCB, SALI #### [facility] [address] [place] [address] Shop Repairer: Foreign Page DO CMPon 03-12-2022 Albumin [Mass/Vol] 3.6 g/dL 3.5 - 5.2 g/dL [facility] HOSPITAL ALP (Bld) [Catalytic activity/Vol] 123 U/L High 35 - 104 U/L [facility] ALT [Catalytic activity/Vol] 78 U/L High 5 - 33 U/L [facility] Anion gap [Moles/Vol] 12 mmol/L 9 - 17 mmol/L [facility] AST [Catalytic activity/Vol] 143 U/L High NINF - 32 U/L [facility] Bilirubin [Mass/Vol] 0.2 mg/dL Low 0.3 - 1 .2 mg/dL [facility] Calcium [Mass/Vol] 8.5 mg/dL Low 8.6 - 10. 4 mg/dL [facility] Chloride [Moles/Vol] 105 mmol/L 98 - 10 7 mmol/L [facility] CO2 [Moles/Vol] 23 mmol/L 20 - 31 mmol/L [facility] Creatinine [Mass/Vol] 0.53 mg/dL 0.50 - 0.90 mg/dL [facility] GFR/1.73 sq M.predicted MDRD (S/P/Bld) [Vol rate/Area] - PINF [facility] Comment on above: These results [...] 72 mg/dL 70 - 99 mg/dL [facility] Interpretation and review of laboratory results Abnormal [facility] Potassium [Moles/Vol] 3.8 mmol/L 3.7 - 5.3 mmol/L [facility] Protein [Mass/Vol] 7.8 g/dL 6.4 - 8.3 g/dL [facility] Sodium [Moles/Vol] 140 mmol/L 135 - 144 mmol/L [facility] Urea nitrogen (BldV) [Mass/Vol] 5 mg/dL Low 6 - 20 mg/dL [facility] CT HEAD WO CONTRASTon 2022 [...] Varun Hager MD 03/12/22 Final result Normal [facility] CT Head W/O Contraston 03-12 No acute intracrania l abnormality. [facility] RIS CONSOLIDATED EXAMINATION: CT OF THE HEAD WITHOUT [...] of the visualized skull or soft tissues. [facility] Varun Hager MD - 03/12/2022 EXAMINATION: CT [...] SYSTEM PROVIDED HISTORY: ams TECHNOLOGIST PROVIDED HISTORY: [facility] Decision Support Exception - unselect if not [...] soft tissues. IMPRESSION: No acute intracranial abnormality. [facility] [employer] Work Phone: Radiology Study observation (narrative) [employer] Phone: CT Head W/O ContrastOrdered By: Varun Hager on 03-12-2022 [facility] Work Phone: Comp Metabolic Profon 2022 Albumin [Mass/Vol] 3.6 g/dL Normal 3.5-5.2 [facility] Comment on above: Performed By: #### C DP, CP, MG, HCG, ACET, ALCB, SALI #### [facility] [address] [place] [address] Shop Repairer: Foreign Page DO Alkaline Phos 123 U/L High 35-104 [facility] Comment on above: Performed By: #### C DP, CP, MG, HCG, ACET, ALCB, SALI #### [facility] [address] [place] [address] Shop Repairer: Foreign Page DO ALT [Catalytic activity/Vol] 78 U/L High 5-33 [facility] Comment on above: Performed By: #### C DP, CP, MG, HCG, ACET, ALCB, SALI #### [facility] [address] [place] [address] Shop Repairer: Foreign Page DO Anion gap [Moles/Vol] 12 mmol/L Normal 9-17 [facility] Comment on above: Performed By: #### C DP, CP, MG, HCG, ACET, ALCB, SALI #### [facility] [address] [place] [address] Shop Repairer: Foreign Page DO AST [Catalytic activity/Vol] 143 U/L High <32 [facility] Comment on above: Performed By: #### C DP, CP, MG, HCG, ACET, ALCB, SALI #### [facility] [address] [place] [address] Shop Repairer: Foreign Page DO Bilirubin [Mass/Vol] 0.2 mg/dL Low 0.3-1.2 [facility] Comment on above: Performed By: #### C DP, CP, MG, HCG, ACET, ALCB, SALI #### [facility] [address] [place] [address] Shop Repairer: Foreign Page DO Calcium [Mass/Vol] 8.5 mg/dL Low 8.6-10.4 [facility] Comment on above: Performed By: #### C DP, CP, MG, HCG, ACET, ALCB, SALI #### [facility] [address] [place] [address] Shop Repairer: Foreign Page DO Chloride [Moles/Vol] 105 mmol/L Normal 98-107 [facility] Comment on above: Performed By: #### C DP, CP, MG, HCG, ACET, ALCB, SALI #### [facility] [address] [place] [address] Shop Repairer: Foreign Page DO CO2 [Moles/Vol] 23 mmol/L Normal 20-31 [facility] Comment on above: Performed By: #### C DP, CP, MG, HCG, ACET, ALCB, SALI #### [facility] [place] [address] Shop Repairer: Foreign Page DO Creatinine [Mass/Vol] 0.53 mg/dL Normal 0.50-0.90 [facility] Comment on above: Performed By: #### C DP, CP, MG, HCG, ACET, ALCB, SALI #### [facility] [place] [address] Shop Repairer: Foreign Page DO GFR/1.73 sq M.predicted among non-blacks MDRD (S/P/Bld) [Vol rate/Area] mL/min/{1.73_m2} Normal >60 [facility] Comment on above: Result Comment: These [...] CP, MG, HCG, ACET, ALCB, SALI #### [facility] [address] [facility] [place] [address] Shop Repairer: Foreign Page, DO Glucose [Mass/Vol] 72 mg/dL Normal 70-99 [facility] Comment on above: Performed By: #### C DP, CP, MG, HCG, ACET, ALCB, SALI #### [facility] [address] [facility] [place] [address] Shop Repairer: Foreign Page DO Potassium [Moles/Vol] 3.8 mmol/L Normal 3.7-5.3 [facility] Comment on above: Performed By: #### C DP, CP, MG, HCG, ACET, ALCB, SALI #### [facility] [address] [facility] [place] [address] Shop Repairer: Foreign Page DO Protein [Mass/Vol] 7.8 g/dL Normal 6.4-8.3 [facility] Comment on above: Performed By: #### C DP, CP, MG, HCG, ACET, ALCB, SALI #### [facility] [address] [facility] [place] [address] Shop Repairer: Foreign Page, DO Sodium [Moles/Vol] 140 mmol/L Normal 135-144 [facility] Comment on above: Performed By: #### C DP, CP, MG, HCG, ACET, ALCB, SALI #### [facility] [address] [place] [address] Shop Repairer: Foreign Page DO Urea nitrogen [Mass/Vol] 5 mg/dL Low 6-20 [facility] Comment on above: Performed By: #### C DP, CP, MG, HCG, ACET, ALCB, SALI #### [facility] [address] [place] [address] Shop Repairer: Foreign Page DO Drug Scr, Abuse, Uron 2022 Amphetamine(s),Ur Negative Normal NEG [facility] Comment on above: Result Comment: (Positive cutoff 1000 ng/mL) Performed By: #### U AX, KAUSHAL #### [facility] [address] [place] [address] Shop Repairer: Foreign Page DO Barbiturate(s),Ur Negative Normal NEG [facility] Comment on above: Result Comment: (Positive cutoff 200 ng/mL) Performed By: #### U AX, KAUSHAL #### [facility] [address] [place] [address] Shop Repairer: Foreign Page DO Benzodiazepine(s) Negative Normal NEG [facility] Comment on above: Result Comment: (Positive cutoff 200 ng/mL) Performed By: #### U AX, KAUSHAL #### [facility] [address] [place] [address] Shop Repairer: Foreign Pgae DO Cannabinoid(s),Ur Negative Normal NEG [facility] Comment on above: Result Comment: (Positive cutoff 50 ng/mL) Performed By: #### U AX, KAUSHAL #### [facility] [address] [place] [address] Shop Repairer: Foreign Page DO Cocaine Metabolite Negative Normal NEG [facility] Comment on above: Result Comment: (Positive cutoff 300 ng/mL) Performed By: #### U AX, KAUSHAL #### [facility] [address] [place] [address] Shop Repairer: Foreign Page DO Fentanyl, Urine Negative Normal NEG [facility] Comment on above: Result Comment: (Positive cutoff 5 ng/ml) Performed By: #### U AX, KAUSHAL #### [facility] [address] [place] [address] Shop Repairer: Foreign Page DO Interpretive Info Assay provides medic al screening only. The absence of expected drug(s) and/or Normal [facility] Comment on above: Result Comment: meta bolite(s) may indicate diluted or adulterated urine, limitations of testing or timing of collection. Testing for legal purposes should be confirmed by another method. To request confirmation of test result, please call the lab within 7 days of sample submission. Performed By: #### U AX, KAUSHAL #### [facility] [address] [place] [address] Shop Repairer: Foreign Page DO Methadone Ql (U) Positive Abnormal NEG [facility] Comment on above: Result Comment: (Positive cutoff 300 ng/mL) Performed By: #### U AX, KAUSHAL #### [facility] [address] [place] [address] Shop Repairer: Foreign Page DO Opiate(s), Ur Negative Normal NEG [facility] Comment on above: Result Comment: (Positive cutoff 300 ng/mL) Performed By: #### U AX, KAUSHAL #### [facility] [address] [place] [address] Shop Repairer: Foreign Page DO Oxycodone, Urine Negative Normal NEG [facility] Comment on above: Result Comment: (Positive cutoff 100 ng/mL) Performed By: #### U AX, KAUSHAL #### [facility] [address] [place] [address] Shop Repairer: Foreign Page DO Phencyclidine, Ur Negative Normal NEG [facility] Comment on above: Result Comment: (Positive cutoff 25 ng/mL) Performed By: #### U AX, KAUSHAL #### [facility] [address] [facility] [place] [address] Shop Repairer: Foreign Page DO ETOHon 03-12-2022 Ethanol [Mass/Vol] 358 mg/dL Critically high NINF - 10 mg/dL [facility] Ethanol percent 0.358 % [facility] Ethanol Alcoholon 03-12-2022 Ethanol [Mass/Vol] 358 mg/dL Critically high <10 M [facility] Comment on above: Performed By: #### C DP, CP, MG, HCG, ACET, ALCB, SALI #### [facility] [address] [place] [address] Shop Repairer: Foreign Page DO Ethanol percent 0.358 % [facility] Comment on above: Performed By: #### C DP, CP, MG, HCG, ACET, ALCB, SALI #### [facility] [address] [place] [address] Shop Repairer: Foreign Page DO HCG Qualitative, Serumon hCG Qual Negative NEGATIVE [facility] Comment on above: Specimens with hCG l evels near the threshold of the test (25 mIU/mL) may give a negative or indeterminate result. In such cases, another test should be performed with a new specimen in 48-72 hours. If early is suspected clinically in this setting, correlation with quantitative serum b-hCG level is suggested. [facility] HCG Screen, Bloodon 03-12-19 23 HCG Screen, Blood Negative Normal NEG [facility] Comment on above: Result Comment: Spec [...] CP, MG, HCG, ACET, ALCB, SALI #### [facility] [address] [place] [address] Shop Repairer: Foreign Page DO Magnesiumon 03-12-2022 Magnesium [Mass/Vol] 2.0 mg/dL Normal 1.6-2.6 [facility] Comment on above: Performed By: #### C DP, CP, MG, HCG, ACET, ALCB, SALI #### [facility] [address] [place] [address] Shop Repairer: Foreign Page DO Magnesium [Mass/Vol] 2.0 mg/dL 1.6 - 2 .6 mg/dL [facility] No Panel Informationon 03-12 Interpretation and review of laboratory results Abnormal [facility] Salicylateon 03-12-2022 Salicylate <1 Low 3-10 [facility] Comment on above: Performed By: #### C DP, CP, MG, HCG, ACET, ALCB, SALI #### [facility] [address] [place] [address] Shop Repairer: Foreign Page DO Salicylate Lvl mg/dL Low 3 - 10 mg/dL [facility] UA w/Reflex Cultureon 2022 Bilirubin, SemiQt,Ur Negative Normal NEG [facility] Comment on above: Performed By: #### Nessa AXRAMONU #### [facility] [address] [place] [address] Shop Repairer: Foreign Page DO Blood, Urine Negative Normal NEG [facility] Comment on above: Performed By: #### U AXRAMONU #### [facility] [address] [place] [address] Shop Repairer: Foreign Page DO Clarity (U) Clear Normal CLEAR [facility] Comment on above: Performed By: #### U AX, KAUSHAL #### [facility] [address] [place] [address] Shop Repairer: Foreign Page DO Color (U) Yellow Normal YEL [facility] Comment on above: Performed By: #### U AX, KAUSHAL #### [facility] [address] [place] [address] Shop Repairer: Foreign Page DO Comment Microscopic exam not performed based on chemical results unless requested in Normal [facility] Comment on above: Result Comment: orig inal order. Performed By: #### U AX, KAUSHAL #### [facility] [address] [place] [address] Shop Repairer: Foreign Page DO Glucose Ql (U) Negative Normal NEG [facility] Comment on above: Performed By: #### U AX, KAUSHAL #### [facility] [address] [place] [address] Shop Repairer: Foreign Page DO Ketones Ql (U) Negative Normal NEG [facility] Comment on above: Performed By: #### U AX, KAUSHAL #### [facility] [address] [place] [address] [place] [address] Shop Repairer: Foreign Page DO Leukocyte esterase Test strip Ql (U) Negative Normal NEG [facility] Comment on above: Performed By: #### U AX, KAUSHAL #### [facility] [address] [place] [address] Shop Repairer: Foreign Page DO Nitrite,Ur Negative Normal NEG [facility] Comment on above: Performed By: #### U AX, KAUSHAL #### [facility] [facility] [place] [address] Shop Repairer: Foreign Page DO PH,Ur 6.0 Normal 5.0-8.0 [facility] Comment on above: Performed By: #### U AX, KAUSHAL #### [facility] [address] [place] [address]. [place] [address] Shop Repairer: Foreign Page DO Protein Ql (U) Negative Normal NEG [facility] Comment on above: Performed By: #### U AX, KAUSHAL #### [facility] [address] [place] [address] Shop Repairer: Foreign Page DO Spec. [place],Ur 1.009 Normal 1.000-1.030 [facility] Comment on above: Performed By: #### U AX, KAUSHAL #### [facility] [address] [place] [address] Shop Repairer: Foreign Page DO Urobilinogen,Ur Normal Normal NORM [facility] Comment on above: Performed By: #### U AX, KAUSHAL #### [facility] [address] [place] [address] Shop Repairer: Foreign Page DO Urinalysis with Reflex to Cu ltureon 03-12-2022 Bilirubin Urine Negative NEGATIVE [facility] Color, UA Yellow Yellow [facility] Glucose, Ur Negative NEGATIVE [facility] Ketones Ql (U) Negative NEGATIVE [facility] Leukocyte esterase Test strip Ql (U) Negative NEGATIVE [facility] Nitrite, Urine Negative NEGATIVE [facility] pH, UA 6.0 5.0 - 8.0 [facility] Protein, UA Negative NEGATIVE [facility] Specific [place], UA 1.009 1.000 - 1.030 [facility] Turbidity UA Clear Clear [facility] Urinalysis Comments Microscopic exam not performed based on chemical results unless requested in original order. [facility] Urine Hgb Negative NEGATIVE [facility] Urobilinogen, Urine Normal Normal [facility] Urine Drug Screenon 03-12-19 23 Amphetamine Screen, Ur Negative NEGATIVE [facility] Comment on above: (Positive cutoff 1000 ng/mL) Barbiturate Screen, Ur Negative NEGATIVE [facility] Comment on above: (Positive cutoff 200 ng/mL) Benzodiazepine Screen, Urine Negative NEGATIVE [facility] Comment on above: (Positive cutoff 200 ng/mL) Cannabinoid Scrn, Ur Negative NEGATIVE [facility] Comment on above: (Positive cutoff 50 ng/mL) Cocaine Metabolite, Urine Negative NEGATIVE [facility] Comment on above: (Positive cutoff 300 ng/mL) Fentanyl, Ur Negative NEGATIVE [facility] Comment on above: (Positive cutoff 5 ng/ml) Interpretation and review of laboratory results Abnormal [facility] Methadone Screen, Urine Positive Abnormal NEGATIVE [facility] Comment on above: (Positive cutoff 300 ng/mL) Opiates, Urine Negative NEGATIVE [facility] Comment on above: (Positive cutoff 300 ng/mL) Oxycodone Screen, Ur Negative NEGATIVE [facility] Comment on above: (Positive cutoff 100 ng/mL) Phencyclidine, Urine Negative NEGATIVE [facility] Comment on above: (Positive cutoff 25 ng/mL) Test Information Assay provides medic al screening only. The absence of expected drug(s) and/or metabolite(s) may indicate diluted or adulterated urine, limitations of testing or timing of collection. [facility] Comment on above: Testing for legal pu rposes should be confirmed by another method. To request confirmation of test result, please call the lab within 7 days of sample submission. [facility] Amphetamine Screen Ql (U)Ord ered By: Ari Aguero on 03-05-2022 Amphetamines Ql (U) Negative Negative [facility] Barbiturates [Presence] in U rineOrdered By: Ari Aguero on 03-05-2022 Barbiturates Ql (U) Negative Negative [facility] Basophils Auto (Bld) [#/Vol] Ordered By: Ari Aguero on 03-05-2022 Basophils (Bld) [#/Vol] 0.1 10*3/uL 0.0-0.2 [facility] Basophils/100 WBC Auto (Bld) Ordered By: Ari Aguero on 03-05-2022 Basophils/100 WBC (Bld) 0.6 % . [facility] Benzodiazepines [Presence] i n UrineOrdered By: Ari Aguero on 03-05-2022 Benzodiazepines Ql (U) Negative Negative [facility] Bilirubin Test strip Ql (U)O rdered By: Ari Aguero on 03-05-2022 Bilirubin Ql (U) Negative Negative [facility] Body fluid albumin measureme nt (mass/volume)Ordered By: Ari Aguero on 03-05-2022 Albumin (Body fld) [Mass/Vol] 3.3 g/dL 3.2-5.5 [facility] Cannabinoids [Presence] in U rine by Screen methodOrdered By: Ari Aguero on 03-05-2022 Cannabinoids Screen Ql (U) Negative Negative [facility] Comment on above: These are unconfirme d results and should not be used for legal purposes. Drug Cut-Off Concentration: AMPH 1000 ng/mL JANELL 200 ng/mL JAMES 200 ng/mL COCM 300 ng/mL OP 300 ng/mL PCP 25 ng/mL THC 20 ng/mL Color Auto (U)Ordered By: Robin red More on 03-05-2022 Color (U) Yellow Yellow [facility] Creatinine and Glomerular fi ltration rate.predicted panel (S/P/Bld)Ordered By: Ari Aguero on 03-05-2022 Creatinine [Mass/Vol] 0.50 mg/dL 0.44-1.03 [facility] Eosinophils Auto (Bld) [#/Vo l]Ordered By: Ari Aguero on 03-05-2022 Eosinophils (Bld) [#/Vol] 0.1 10*3/uL 0.0-0.45 [facility] Eosinophils/100 WBC Auto (Bl d)Ordered By: Ari Aguero on 03-05-2022 Eosinophils/100 WBC (Bld) 1.1 % . [facility] Erythrocyte distribution wid th Auto (RBC) [Ratio]Ordered By: Ari Aguero on 03-05-2022 Erythrocyte distribution width (RBC) [Ratio] 13.0 % 11.9-15.3 [facility] Estimated glomerular filtrat ion rate (GFR) non- AmericanOrdered By: Ari Aguero on 03-05-2022 GFR/1.73 sq M.predicted among non-blacks MDRD (S/P/Bld) [Vol rate/Area] > 60 mL/Min [facility] Globulin Calc (S) [Mass/Vol] Ordered By: Ari Aguero on 03-05-2022 Globulin (S) [Mass/Vol] 4.2 g/dL [facility] HCG ( test) IA.rapi d Ql (U)Ordered By: Ari Aguero on 03-05-2022 HCG ( test) Ql (U) Negative [facility] Hematocrit Auto (Bld) [Volum e fraction]Ordered By: Ari Aguero on 03-05-2022 Hematocrit (Bld) [Volume fraction] 42.0 % 34.0-46.4 [facility] Hemoglobin [Mass/volume] in BloodOrdered By: Ari Aguero on 03-05-2022 Hemoglobin (Bld) [Mass/Vol] 14.0 g/dL 11.8-15.4 [facility] Ketones Auto test strip (U) [Mass/Vol]Ordered By: Ari Aguero on 03-05-2022 Ketones (U) [Mass/Vol] Negative Negative [facility] Laboratory - Drug toxicology Ordered By: Ari Aguero on 03-05-2022 Opiates Ql (U) Negative Negative [facility] Leukocytes [#/volume] correc jose for nucleated erythrocytes in Blood by Automated counOrdered By: Ari Aguero on 03-05-2022 WBC corrected for nucl RBC Auto (Bld) [#/Vol] 11.6 10*3/uL 3.8-11.6 [facility] Lymphocytes Auto (Bld) [#/Vo l]Ordered By: Ari Aguero on 03-05-2022 Lymphocytes (Bld) [#/Vol] 3.2 10*3/uL 1.00-4.8 [facility] Lymphocytes/100 WBC Auto (Bl d)Ordered By: Ari Aguero on 03-05-2022 Lymphocytes/100 WBC (Bld) 27.3 % . [facility] MCH Auto (RBC) [Entitic mass ]Ordered By: Ari Aguero on 03-05-2022 MCH (RBC) [Entitic mass] 31.0 pg 24.7-34.3 [facility] MCHC Auto (RBC) [Mass/Vol]Or dered By: Ari Aguero on 03-05-2022 MCHC (RBC) [Mass/Vol] 33.3 g/dL 32.0-35.0 [facility] MCV Auto (RBC) [Entitic vol] Ordered By: Ari Aguero on 03-05-2022 MCV (RBC) [Entitic vol] 93.1 fL 80-100 [facility] Monocyte distribution width [Entitic volume] in Blood by AutomatedOrdered By: Ari Aguero on 03-05-2022 Monocyte distribution width Auto (Bld) [Entitic vol] 19.04 % 0.00-20.00 [facility] Monocytes Auto (Bld) [#/Vol] Ordered By: Ari Aguero on 03-05-2022 Monocytes (Bld) [#/Vol] 0.7 10*3/uL 0.0-0.8 [facility] Monocytes/100 WBC Auto (Bld) Ordered By: Ari Aguero on 03-05-2022 Monocytes/100 WBC (Bld) 5.9 % . [facility] Neutrophils Auto (Bld) [#/Vo l]Ordered By: Ari Aguero on 03-05-2022 Neutrophils (Bld) [#/Vol] 7.6 10*3/uL 1.8-7.7 [facility] Neutrophils/100 WBC Auto (Bl d)Ordered By: Ari Aguero on 03-05-2022 Neutrophils/100 WBC (Bld) 65.1 % . [facility] Nitrite Test strip Ql (U)Ord ered By: Ari Aguero on 03-05-2022 Nitrite Ql (U) Negative Negative [facility] No Panel InformationOrdered By: Ari Aguero on 03-05-2022 Estimated GFR () > 60 mL/Min [facility] Comment on above: GFR estimated refere nce range: According to KDOQI guidelines, <60 ml/min/1.73m2 is sufficient to diagnose a patient with chronic kidney disease. Pharmacy Creatinine Clearance (Chem 158.18 [facility] Nucleated erythrocytes [Pres ence] in Blood by Automated countOrdered By: Ari Aguero on 03-05-2022 Nucleated RBC Auto Ql (Bld) 0.1 /100{WBC} 0-0.5 [facility] Phencyclidine Screen Ql (U)O rdered By: Ari Aguero on 03-05-2022 Phencyclidine Ql (U) Negative Negative [facility] Platelet mean volume Auto (B ld) [Entitic vol]Ordered By: Ari Aguero on 03-05-2022 Platelet mean volume (Bld) [Entitic vol] 7.7 fL 6.3-10.7 [facility] Platelets Auto (Bld) [#/Vol] Ordered By: Ari Aguero on 03-05-2022 Platelets (Bld) [#/Vol] 277 10*3/uL 150-450 [facility] Protein Auto test strip (U) [Mass/Vol]Ordered By: Ari Aguero on 03-05-2022 Protein (U) [Mass/Vol] Negative Negative [facility] Protein [Mass/volume] in Ser um or PlasmaOrdered By: Ari Aguero on 03-05-2022 Protein [Mass/Vol] 7.5 g/dL 6.1-7.9 [facility] RBC Auto (Bld) [#/Vol]Ordere d By: Ari Aguero on 03-05-2022 RBC (Bld) [#/Vol] 4.51 10*6/uL 3.60-5.00 [facility] Serum or plasma alanine urbina otransferase measurement without P-5'-P (enzymatic activiOrdered By: Ari Aguero on 03-05-2022 ALT No additional P-5'-P [Catalytic activity/Vol] 106 U/L 10-60 [facility] Serum or plasma albumin/glob ulin mass ratioOrdered By: Ari Aguero on 03-05-2022 Albumin/Globulin [Mass ratio] 0.8 {ratio} [facility] Serum or plasma alkaline maya sphatase measurement (enzymatic activity/volume)Ordered By: Ari Aguero on 03-05-2022 ALP [Catalytic activity/Vol] 94 U/L 32-92 [facility] Serum or plasma anion gap de terminationOrdered By: Ari Aguero on 03-05-2022 Anion gap [Moles/Vol] 14.1 mmol/L 6.0-15.0 [facility] Serum or plasma aspartate am inotransferase measurement (enzymatic activity/volume)Ordered By: Ari Aguero on 03-05-2022 AST [Catalytic activity/Vol] 146 U/L 10-42 [facility] Serum or plasma calcium judi urement (mass/volume)Ordered By: Ari Aguero on 03-05-2022 Calcium [Mass/Vol] 8.9 mg/dL 8.2-10.2 [facility] Serum or plasma chloride nataliia surement (moles/volume)Ordered By: Ari Aguero on 03-05-2022 Chloride [Moles/Vol] 105 mmol/L 95-114 [facility] Serum or plasma ethanol judi urement (mass/volume)Ordered By: Air Aguero on 03-05-2022 Ethanol [Mass/Vol] 277 mg/dL [facility] Ethanol [Mass/Vol] 0.277 % [facility] Serum or plasma glucose judi urement (mass/volume)Ordered By: Ari Aguero on 03-05-2022 Glucose [Mass/Vol] 83 mg/dL 70-100 [facility] Comment on above: ADA recommended refe rence rangeRandom Glucose Reference Range is dependent on time and content of last meal. Glucose of more than 200 mg/dL in a nonstressed, ambulatory subject supports the diagnosis of Diabetes Mellitus. Serum or plasma potassium me asurement (moles/volume)Ordered By: Ari Aguero on 03-05-2022 Potassium [Moles/Vol] 3.7 mmol/L 3.5-5.1 [facility] Serum or plasma sodium measu rement (moles/volume)Ordered By: Ari Aguero on 03-05-2022 Sodium [Moles/Vol] 138 mmol/L 136-146 [facility] Serum or plasma total biliru bin measurement (mass/volume)Ordered By: Ari Aguero on 03-05-2022 Bilirubin [Mass/Vol] 0.4 mg/dL 0.3-1.2 [facility] Serum or plasma total carbon dioxide measurement (moles/volume)Ordered By: Ari Aguero on 03-05-2022 CO2 [Moles/Vol] 22.6 mmol/L 22.0-30.0 [facility] Serum or plasma urea nitroge n measurement (mass/volume)Ordered By: Ari Aguero on 03-05-2022 Urea nitrogen [Mass/Vol] 3 mg/dL 11-03 [facility] Specific gravity Auto test s trip (U) [Rel density]Ordered By: Ari Aguero on 03-05-2022 Specific gravity (U) [Rel density] 1.008 1.001-1.030 [facility] Urine clarity by refractomet ry automatedOrdered By: Ari Aguero on 03-05-2022 Clarity Refractometry automated (U) Clear Clear [facility] Urine cocaine detectionOrder ed By: Ari Aguero on 03-05-2022 Cocaine Ql (U) Positive Negative [facility] Urine glucose measurement by automated test strip (mass/volume)Ordered By: Ari Aguero on 03-05-2022 Glucose Auto test strip (U) [Mass/Vol] Normal mg/dL Normal [facility] Urine hemoglobin detection b y automated test stripOrdered By: Ari Aguero on 03-05-2022 Hemoglobin Auto test strip Ql (U) Negative Negative [facility] Urine leukocyte esterase det ection by automated test stripOrdered By: Ari Aguero on 03-05-2022 Leukocyte esterase Auto test strip Ql (U) Negative Negative [facility] Urobilinogen Auto test strip (U) [Mass/Vol]Ordered By: Ari Aguero on 03-05-2022 Urobilinogen (U) [Mass/Vol] Normal mg/dL Normal [facility] WBC Auto (Bld) [#/Vol]Ordere d By: Ari Aguero on 03-05-2022 WBC (Bld) [#/Vol] 11.6 10*3/uL 3.8-11.6 [facility] pH Auto test strip (U)Ordere d By: Ari More on 03-05-2022 pH (U) 5.5 [pH] 5.0-9.0 [facility] Amphetamine Screen Ql (U)Ord ered By: Declan Marina on 02-20-2022 Amphetamines Ql (U) Negative Negative [facility] Barbiturates [Presence] in U rineOrdered By: Declan Marina on 02-20-2022 Barbiturates Ql (U) Negative Negative [facility] Basophils Auto (Bld) [#/Vol] Ordered By: Declan Marina on 02-20-2022 Basophils (Bld) [#/Vol] 0.1 10*3/uL 0.0-0.2 [facility] Basophils/100 WBC Auto (Bld) Ordered By: Declan Marina on 02-20-2022 Basophils/100 WBC (Bld) 1.4 % . [facility] Benzodiazepines [Presence] i n UrineOrdered By: Declan Marina on 02-20-2022 Benzodiazepines Ql (U) Negative Negative [facility] Bilirubin Test strip Ql (U)O rdered By: Declan Marina on 02-20-2022 Bilirubin Ql (U) Negative Negative [facility] Body fluid albumin measureme nt (mass/volume)Ordered By: Declan Marina on 02-20-2022 Albumin (Body fld) [Mass/Vol] 3.8 g/dL 3.2-5.5 [facility] Cannabinoids [Presence] in U rine by Screen methodOrdered By: Declan Marina on 02-20-2022 Cannabinoids Screen Ql (U) Negative Negative [facility] Comment on above: These are unconfirme d results and should not be used for legal purposes. Drug Cut-Off Concentration: AMPH 1000 ng/mL JANELL 200 ng/mL JAMES 200 ng/mL COCM 300 ng/mL OP 300 ng/mL PCP 25 ng/mL THC 20 ng/mL Color Auto (U)Ordered By: Akiko Marina on 02-20-2022 Color (U) Yellow Yellow [facility] Creatinine and Glomerular fi ltration rate.predicted panel (S/P/Bld)Ordered By: Declan Marina on 02-20-2022 Creatinine [Mass/Vol] 0.57 mg/dL 0.44-1.03 [facility] Eosinophils Auto (Bld) [#/Vo l]Ordered By: Declan Marina on 02-20-2022 Eosinophils (Bld) [#/Vol] 0.1 10*3/uL 0.0-0.45 [facility] Eosinophils/100 WBC Auto (Bl d)Ordered By: Declan Marina on 02-20-2022 Eosinophils/100 WBC (Bld) 0.5 % . [facility] Erythrocyte distribution wid th Auto (RBC) [Ratio]Ordered By: Declan Marina on 02-20-2022 Erythrocyte distribution width (RBC) [Ratio] 12.8 % 11.9-15.3 [facility] Estimated glomerular filtrat ion rate (GFR) non- AmericanOrdered By: Declan Marina on 02-20-2022 GFR/1.73 sq M.predicted among non-blacks MDRD (S/P/Bld) [Vol rate/Area] > 60 mL/Min [facility] Globulin Calc (S) [Mass/Vol] Ordered By: Declan Marina on 02-20-2022 Globulin (S) [Mass/Vol] 3.3 g/dL [facility] HCG ( test) IA.rapi d Ql (U)Ordered By: Declan Marina on 02-20-2022 HCG ( test) Ql (U) Negative [facility] Hematocrit Auto (Bld) [Volum e fraction]Ordered By: Declan Marina on 02-20-2022 Hematocrit (Bld) [Volume fraction] 44.9 % 34.0-46.4 [facility] Hemoglobin [Mass/volume] in BloodOrdered By: Declan Marina on 02-20-2022 Hemoglobin (Bld) [Mass/Vol] 15.2 g/dL 11.8-15.4 [facility] Ketones Auto test strip (U) [Mass/Vol]Ordered By: Declan Marina on 02-20-2022 Ketones (U) [Mass/Vol] Negative Negative [facility] Laboratory - Drug toxicology Ordered By: Declan Marina on 02-20-2022 Opiates Ql (U) Negative Negative [facility] Leukocytes [#/volume] correc jose for nucleated erythrocytes in Blood by Automated counOrdered By: Declan Marina on 02-20-2022 WBC corrected for nucl RBC Auto (Bld) [#/Vol] 9.8 10*3/uL 3.8-11.6 [facility] Lymphocytes Auto (Bld) [#/Vo l]Ordered By: Declan Marina on 02-20-2022 Lymphocytes (Bld) [#/Vol] 3.0 10*3/uL 1.00-4.8 [facility] Lymphocytes/100 WBC Auto (Bl d)Ordered By: Declan Marina on 02-20-2022 Lymphocytes/100 WBC (Bld) 30.9 % . [facility] MCH Auto (RBC) [Entitic mass ]Ordered By: Declan Marina on 02-20-2022 MCH (RBC) [Entitic mass] 31.6 pg 24.7-34.3 [facility] MCHC Auto (RBC) [Mass/Vol]Or dered By: Declan Marina on 02-20-2022 MCHC (RBC) [Mass/Vol] 33.9 g/dL 32.0-35.0 [facility] MCV Auto (RBC) [Entitic vol] Ordered By: Declan Marina on 02-20-2022 MCV (RBC) [Entitic vol] 93.1 fL 80-100 [facility] Monocyte distribution width [Entitic volume] in Blood by AutomatedOrdered By: Declan Marina on 02-20-2022 Monocyte distribution width Auto (Bld) [Entitic vol] 15.19 % 0.00-20.00 [facility] Monocytes Auto (Bld) [#/Vol] Ordered By: Declan Marina on 02-20-2022 Monocytes (Bld) [#/Vol] 0.4 10*3/uL 0.0-0.8 [facility] Monocytes/100 WBC Auto (Bld) Ordered By: Declan Marina on 02-20-2022 Monocytes/100 WBC (Bld) 3.7 % . [facility] Neutrophils Auto (Bld) [#/Vo l]Ordered By: Declan Marina on 02-20-2022 Neutrophils (Bld) [#/Vol] 6.2 10*3/uL 1.8-7.7 [facility] Neutrophils/100 WBC Auto (Bl d)Ordered By: Declan Marina on 02-20-2022 Neutrophils/100 WBC (Bld) 63.5 % . [facility] Nitrite Test strip Ql (U)Ord ered By: Declan Marina on 02-20-2022 Nitrite Ql (U) Negative Negative [facility] No Panel InformationOrdered By: Declan Marina on 02-20-2022 Estimated GFR () > 60 mL/Min [facility] Comment on above: GFR estimated refere nce range: According to KDOQI guidelines, <60 ml/min/1.73m2 is sufficient to diagnose a patient with chronic kidney disease. Pharmacy Creatinine Clearance (Chem 140.39 [facility] Nucleated erythrocytes [Pres ence] in Blood by Automated countOrdered By: Declan Marina on 02-20-2022 Nucleated RBC Auto Ql (Bld) 0.2 /100{WBC} 0-0.5 [facility] Phencyclidine Screen Ql (U)O rdered By: Declan Marina on 02-20-2022 Phencyclidine Ql (U) Negative Negative [facility] Platelet mean volume Auto (B ld) [Entitic vol]Ordered By: Declan Marina on 02-20-2022 Platelet mean volume (Bld) [Entitic vol] 7.8 fL 6.3-10.7 [facility] Platelets Auto (Bld) [#/Vol] Ordered By: Declan Marina on 02-20-2022 Platelets (Bld) [#/Vol] 219 10*3/uL 150-450 [facility] Protein Auto test strip (U) [Mass/Vol]Ordered By: Declan Marina on 02-20-2022 Protein (U) [Mass/Vol] Negative Negative [facility] Protein [Mass/volume] in Ser um or PlasmaOrdered By: Declan Marina on 02-20-2022 Protein [Mass/Vol] 7.1 g/dL 6.1-7.9 [facility] RBC Auto (Bld) [#/Vol]Ordere d By: Declan Marina on 02-20-2022 RBC (Bld) [#/Vol] 4.82 10*6/uL 3.60-5.00 [facility] Serum or plasma alanine urbina otransferase measurement without P-5'-P (enzymatic activiOrdered By: Declan Marina on 02-20-2022 ALT No additional P-5'-P [Catalytic activity/Vol] 141 U/L 1060 [facility] Serum or plasma albumin/glob ulin mass ratioOrdered By: Declan Marina on 02-20-2022 Albumin/Globulin [Mass ratio] 1.2 {ratio} [facility] Serum or plasma alkaline maya sphatase measurement (enzymatic activity/volume)Ordered By: Declan Marina on 02-20-2022 ALP [Catalytic activity/Vol] 84 U/L 32-92 [facility] Serum or plasma anion gap de terminationOrdered By: Declan Marina on 02-20-2022 Anion gap [Moles/Vol] 16.0 mmol/L 6.0-15.0 [facility] Serum or plasma aspartate am inotransferase measurement (enzymatic activity/volume)Ordered By: Declan Marina on 02-20-2022 AST [Catalytic activity/Vol] 169 U/L 10 [facility] Serum or plasma calcium judi urement (mass/volume)Ordered By: Declan Marina on 02-20-2022 Calcium [Mass/Vol] 8.5 mg/dL 8.2-10.2 [facility] Serum or plasma chloride nataliia surement (moles/volume)Ordered By: Declan Marina on 02-20-2022 Chloride [Moles/Vol] 103 mmol/L 95-114 [facility] Serum or plasma ethanol judi urement (mass/volume)Ordered By: Declan Marina on 02-20-2022 Ethanol [Mass/Vol] 347 mg/dL [facility] Ethanol [Mass/Vol] 0.347 % [facility] Serum or plasma glucose judi urement (mass/volume)Ordered By: Declan Marina on 02-20-2022 Glucose [Mass/Vol] 76 mg/dL 70-100 [facility] Comment on above: ADA recommended refe rence rangeRandom Glucose Reference Range is dependent on time and content of last meal. Glucose of more than 200 mg/dL in a nonstressed, ambulatory subject supports the diagnosis of Diabetes Mellitus. Serum or plasma potassium me asurement (moles/volume)Ordered By: Dcelan Marina on 02-20-2022 Potassium [Moles/Vol] 3.6 mmol/L 3.5-5.1 [facility] Serum or plasma sodium measu rement (moles/volume)Ordered By: Declan Marina on 02-20-2022 Sodium [Moles/Vol] 140 mmol/L 136-146 [facility] Serum or plasma total biliru bin measurement (mass/volume)Ordered By: Declan Marina on 02-20-2022 Bilirubin [Mass/Vol] 0.5 mg/dL 0.3-1.2 [facility] Serum or plasma total carbon dioxide measurement (moles/volume)Ordered By: Declan Marina on 02-20-2022 CO2 [Moles/Vol] 24.6 mmol/L 22.0-30.0 [facility] Serum or plasma urea nitroge n measurement (mass/volume)Ordered By: Declan Marina on 02-20-2022 Urea nitrogen [Mass/Vol] 2 mg/dL 9-23 [facility] Specific gravity Auto test s trip (U) [Rel density]Ordered By: Declan Marina on 02-20-2022 Specific gravity (U) [Rel density] 1.007 1.001-1.030 [facility] Urine clarity by refractomet ry automatedOrdered By: Declan Marina on 02-20-2022 Clarity Refractometry automated (U) Clear Clear [facility] Urine cocaine detectionOrder ed By: Declan Marina on 02-20-2022 Cocaine Ql (U) Negative Negative [facility] Urine glucose measurement by automated test strip (mass/volume)Ordered By: Declan Marina on 02-20-2022 Glucose Auto test strip (U) [Mass/Vol] Normal mg/dL Normal [facility] Urine hemoglobin detection b y automated test stripOrdered By: Declan Marina on 02-20-2022 Hemoglobin Auto test strip Ql (U) Negative Negative [facility] Urine leukocyte esterase det ection by automated test stripOrdered By: Declan Marina on 02-20-2022 Leukocyte esterase Auto test strip Ql (U) Negative Negative [facility] Urobilinogen Auto test strip (U) [Mass/Vol]Ordered By: Declan Marina on 02-20-2022 Urobilinogen (U) [Mass/Vol] Normal mg/dL Normal [facility] WBC Auto (Bld) [#/Vol]Ordere d By: Declan Marina on 02-20-2022 WBC (Bld) [#/Vol] 9.8 10*3/uL 3.8-11.6 [facility] pH Auto test strip (U)Ordere d By: Declan Marina on 02-20-2022 pH (U) 6.0 [pH] 5.0-9.0 [facility] CHEMISTRYOrdered By: SYSTEM SYSTEM on 07-26-2021 Albumin [...] 3.5 g/dL Normal 1.4 - 4.0 gm/dL [facility] Remisol Glucose [Mass/Vol] 103 mg/dL Normal 55 - 199 mg/dL [facility] Lipase [Catalytic activity/Vol] 28 U/L Normal 13 - 58 unit/L [facility] Rem[facility] Potassium [Moles/Vol] 3.9 mmol/L Normal [...] 9.2 % Normal 4.0 - 14.0 % [facility] Monocytes/Leukocytes Auto (Bld) [Pure # fraction] 0.6 E9/L Normal 0.2 - 1.0 E9/L [facility] Neutrophils/100 WBC (Bld) 59.8 % Normal 36.0 - 75.0 % [facility] Neutrophils/Leukocyte s Auto (Bld) [Pure # fraction] 3.7 E9/L Normal 2.0 - 7.5 E9/L [facility] HEMATOLOGYOrdered By: Glo burciaga on 07-26-2021 Erythrocyte distribution width (RBC) [Ratio] 13.6 % Normal 10.9 - 14.2 % [facility] Hematocrit (Bld) [Volume fraction] 39.4 % Normal 34.0 - 46.0 % [facility] Hemoglobin (Bld) [Mass/Vol] 13.6 g/dL Normal 12.0 - 16.0 gm/dL [facility] MCH (RBC) [Entitic mass] 31.2 pg Normal 27.0 - 34.0 pg [facility] MCHC (RBC) [Mass/Vol] 34.4 g/dL Normal 31.4 - 36.0 gm/dL [facility] MCV (RBC) [Entitic vol] 90.7 fL Normal 80.0 - 100.0 fL [facility] Platelet mean volume (Bld) [Entitic vol] 8.5 fL Normal 6.4 - 10.8 fL [facility] Platelets (Bld) [#/Vol] 183.0 E9/L Normal 150.0 - 500.0 E9/L [facility] RBC (Bld) [#/Vol] 4.4 E12/L Normal 4.3 - 5.9 E12/L [facility] WBC corrected for nucl RBC Auto (Bld) [#/Vol] 6.3 E9/L Normal 4.0 - 11.0 E9/L [facility] [place] [facility] SEROLOGYOrdered By: Alejandra Contreras on 07-26-2021 Beta hCG Ql Negative (07/26/21 6:47 PM) Normal [facility] [place] Man Sero URINALYSISOrdered By: Arlene Contreras on [...] PM) Normal Negative [facility] UA Auto SS [place].plasma/Lithiu m.RBC (Bld) [Mass ratio] 0-3 /HPF Normal [...] [facility] UA Auto SS Urobilinogen Qn (U) [id number] {Surinder'U}/dL Normal 0.0 - 1.0 EU/dL [facility] UA Auto SS WBC Auto Ql (U) Negative (07/26/21 8:33 PM) Normal Negative [facility] UA Auto SS WBC LM.HPF (Urine sed) [#/Area] 0-5 /HPF Normal 0-5/HPF [facility] UA Auto SS CBC With Platelet and Differ entialon 05-31-2021 Abs Imm Granulocytes 0.01 E9/L Normal [facility] Absolute Basophils 0.02 E9/L Normal 0.00-0.20 [facility] Absolute Eosinophils 0.06 E9/L Normal 0.05-0.50 [facility] Absolute Lymphocytes 2.46 E9/L Normal 1.50-4.00 [facility] Absolute Monocytes 0.52 E9/L Normal 0.10-0.95 [facility] Absolute Neutrophils 3.85 E9/L Normal 1.80-7.30 [facility] Basophils/100 WBC (Bld) 0.3 % Normal 0.0-2.0 [facility] Eosinophils/100 WBC (Bld) 0.9 % Normal 0.0-6.0 [facility] Hematocrit (Bld) [Volume fraction] 42.1 % Normal 34.0-48.0 [facility] Hemoglobin (Bld) [Mass/Vol] 14.2 g/dL Normal 11.5-15.5 [facility] Imm Granulocytes 0.1 % Normal 0.0-5.0 [facility] Lymphocytes/100 WBC (Bld) 35.5 % Normal 20.0-42.0 [facility] MCH (RBC) [Entitic mass] 31.2 pg Normal 26.0-35.0 [facility] MCHC 33.7 % Normal 32.0-34.5 [facility] MCV (RBC) [Entitic vol] 92.5 fL Normal 80.0-99.9 [facility] Monocytes/100 WBC (Bld) 7.5 % Normal 2.0-12.0 [facility] Neutrophils/100 WBC (Bld) 55.7 % Normal 43.0-80.0 [facility] Platelet Count 240 E9/L Normal 130-450 [facility] Platelet mean volume (Bld) [Entitic vol] 10.1 fL Normal 7.0-12.0 [facility] RBC 4.55 E12/L Normal 3.50-5.50 [facility] RDW 12.3 fL Normal 11.5-15.0 [facility] WBC 6.9 E9/L Normal 4.5-11.5 [facility] CBC with Auto Differentialon 05-31-2021 Basophils (Bld) [#/Vol] 0.02 10*3/uL [facility] [employer] Basophils/100 WBC (Bld) 0.3 % 0.0 - 2.0 % [facility] [employer] Eosinophils Absolute 0.06 [facility] [employer] Eosinophils/100 WBC (Bld) 0.9 % 0.0 - 6.0 % [facility] [employer] Hematocrit (Bld) [Volume fraction] 42.1 % 34.0 - 48.0 % [facility] [employer] Hemoglobin.gastrointe stinal spec 1 Ql (Stl) 14.2 g/dL 11.5 - 15.5 g/dL [facility] [employer] Immature Granulocytes # 0.01 E9/L [facility] Immature granulocytes/100 WBC (Bld) 0.1 % 0.0 - 5.0 % [facility] [employer] Lymphocytes Absolute 2.46 [facility] [employer] Lymphocytes/100 WBC (Bld) 35.5 % 20.0 - 42.0 % [facility] MCH (RBC) [Entitic mass] 31.2 pg 26.0 - 35.0 pg [facility] MCHC (RBC) [Mass/Vol] 33.7 % 32.0 - 34.5 % [facility] [employer] MCV (RBC) [Entitic vol] 92.5 fL 80.0 - 99.9 fL [facility] [employer] Monocytes Absolute 0.52 [facility] [employer] Monocytes/100 WBC (Bld) 7.5 % 2.0 - 12.0 % [facility] [employer] Neutrophils Absolute 3.85 [facility] [employer] Neutrophils/100 WBC (Bld) 55.7 % 43.0 - 80.0 % [facility] [employer] Platelet distribution width (Bld) [Ratio] 12.3 fL 11.5 - 15.0 fL [facility] [employer] Platelet mean volume (Bld) [Entitic vol] 10.1 fL 7.0 - 12.0 fL [facility] Platelets (Bld) [#/Vol] 240 10*3/uL [facility] RBC (Bld) [#/Vol] 4.55 10*6/uL [facility] WBC (Bld) [#/Vol] 6.9 10*3/uL [facility] Comprehensive Metabolic Pane mary beth 05-31-2021 Albumin [Mass/Vol] 3.9 g/dL Normal 3.5-5.2 [facility] ALP [Catalytic activity/Vol] 85 U/L Normal 35-104 [facility] ALT [Catalytic activity/Vol] 53 U/L High 0-32 [facility] Anion gap [Moles/Vol] 9 mmol/L Normal 7-16 [facility] AST [Catalytic activity/Vol] 70 U/L High 0-31 [facility] Bilirubin [Mass/Vol] 0.2 mg/dL Normal 0.0-1.2 [facility] Calcium [Mass/Vol] 9.0 mg/dL Normal 8.6-10.2 [facility] Chloride [Moles/Vol] 104 mmol/L Normal 98-107 [facility] CO2 [Moles/Vol] 23 mmol/L Normal 22-29 [facility] Creatinine [Mass/Vol] 0.5 mg/dL Normal 0.5-1.0 [facility] GFR Calculated >60 Normal >=60 [facility] Comment on above: Result Comment: [employer] justin Kidney Disease: less than 60 ml/min/1.73 sq.m. Kidney Failure: less than 15 ml/min/1.73 sq.m. Results valid for patients 18 years and older. GFR/1.73 sq M.predicted among blacks MDRD (S/P/Bld) [Vol rate/Area] mL/min/{1.73_m2} Normal [facility] Glucose [Mass/Vol] 91 mg/dL Normal 74-99 [facility] Potassium [Moles/Vol] 4.8 mmol/L Normal 3.5-5.0 [facility] Protein [Mass/Vol] 7.4 g/dL Normal 6.4-8.3 [facility] Sodium [Moles/Vol] 136 mmol/L Normal 132-146 [facility] Urea nitrogen [Mass/Vol] 6 mg/dL Normal 6-20 [facility] Albumin [Mass/Vol] 3.9 g/dL 3.5 - 5.2 g/dL [facility] ALP (Bld) [Catalytic activity/Vol] 85 U/L 35 - 104 U/L [facility] ALT [Catalytic activity/Vol] 53 U/L High 0 - 32 U/L [facility] Anion gap [Moles/Vol] 9 mmol/L 7 - 16 mmol/L [facility] AST [Catalytic activity/Vol] 70 U/L High 0 - 31 U/L [facility] Bilirubin [Mass/Vol] 0.2 mg/dL 0.0 - 1 .2 mg/dL [facility] Calcium [Mass/Vol] 9.0 mg/dL 8.6 - 10. 2 mg/dL [facility] Chloride [Moles/Vol] 104 mmol/L 98 - 10 7 mmol/L [facility] CO2 [Moles/Vol] 23 mmol/L 22 - 29 mmol/L [facility] Creatinine [Mass/Vol] 0.5 mg/dL 0.5 - 1.0 mg/dL [facility] Free PSA/Total PSA [Mass fraction] 7.4 g/dL 6.4 - 8.3 g/dL [facility] GFR >60 [facility] GFR Non- >60 >=60 mL/min/1.73 [facility] Comment on above: Chronic Kidney Disea se: less than 60 ml/min/1.73 sq.m. Kidney Failure: less than 15 ml/min/1.73 sq.m. Results valid for patients 18 years and older. Glucose [Mass/Vol] 91 mg/dL 74 - 99 mg/dL [facility] Interpretation and review of laboratory results Abnormal [facility] Potassium [Moles/Vol] 4.8 mmol/L 3.5 - 5.0 mmol/L [facility] Sodium [Moles/Vol] 136 mmol/L 132 - 146 mmol/L [facility] Urea nitrogen (BldV) [Mass/Vol] 6 mg/dL 6 - 20 mg/dL [facility] Lipid Panel Fastingon 2021 Cholesterol [Mass/Vol] 123 mg/dL Normal 0-199 [facility] HDL Cholesterol Fasting 30 mg/dL Normal >40 [facility] LDL Cholesterol (Calculated) Fasting 63 mg/dL Normal 0-99 [facility] Triglycerides Fasting 149 mg/dL Normal 0-149 [facility] VLDL Cholesterol (Calculated) Fasting 30 mg/dL Normal [facility] Lipid, Fastingon 05-31-2021 Cholesterol [Mass/Vol] 123 mg/dL 0 - 199 mg/dL [facility] Cholesterol in HDL [Mass/Vol] 30 mg/dL >40 [facility] Cholesterol in LDL [Mass/Vol] 63 mg/dL 0 - 99 mg/dL [facility] Cholesterol in VLDL [Mass/Vol] 30 mg/dL [facility] Triglyceride, Fasting 149 mg/dL 0 - 14 9 mg/dL [facility] Magnesiumon 05-31-2021 Magnesium [Mass/Vol] 1.8 mg/dL Normal 1.6-2.6 [facility] Magnesium [Mass/Vol] 1.8 mg/dL 1.6 - 2 .6 mg/dL [facility] [facility] No Panel Informationon 05-31 [facility] T4, Freeon 05-31-2021 Free T4 [Mass/Vol] 1.31 ng/dL 0.93 - 1. 70 ng/dL [facility] TSHon 05-31-2021 Interpretation and review of laboratory results Abnormal [facility] TSH Qn 0.141 m[IU]/L [facility] TSH w/out Reflexon TSH w/out Reflex 0.141 uIU/mL Low 0.270-4.200 [facility] Thyroxine Freeon 05-31-2021 Thyroxine Free 1.31 ng/dL Normal 0.93-1.70 [facility] Vitamin D 25 Hydroxyon 05-31 Vit D, 25-Hydroxy 33 ng/mL 30 - 100 ng/mL [facility] Comment on above: <20 ng/mL........... ..Deficient 20-30 ng/mL...........Insufficient 30-100 ng/mL..........Sufficient >100 ng/mL............Toxic [facility] Vitamin D, 25-hydroxyon 05-13 Vitamin D, 25-hydroxy 33 ng/mL Normal 30-100 [facility] Comment on above: Result Comment: <20 ng/mL.............Deficient 20-30 ng/mL...........Insufficient 30-100 ng/mL..........Sufficient >100 ng/mL............Toxic Basic Metab w/rfx MGon 05-03 (cont.) Normal [facility] Comment on above: Result Comment: Aver age GFR for 20-29 years old: 116 mL/min/1.73sq m Chronic Kidney Disease: <60 mL/min/1.73sq m Kidney failure: <15 mL/min/1.73sq m eGFR calculated using average adult body mass. Additional eGFR calculator available at: http://www.[employer]/multiple_crcl_2012.htm Performed By: #### T ROPI HCG, BMPX, CDP #### [facility] [address] [place], [place] [id number] Shop Repairer: Clark Segovia MD Anion gap [Moles/Vol] 12 mmol/L Normal 9-17 [facility] Comment on above: Performed By: #### T BASIAI HCG, BMPX, CDP #### [facility] [address] [place] [address] Shop Repairer: Clark Segovia MD Calcium [Mass/Vol] 9.2 mg/dL Normal 8.6-10.4 [facility] Comment on above: Performed By: #### T ROPI, HCG, BMPX, CDP #### [facility] [address] [place] [address] Shop Repairer: Clark Segovia MD Chloride [Moles/Vol] 102 mmol/L Normal 98-107 [facility] Comment on above: Performed By: #### T ROPI, HCG, BMPX, CDP #### [facility] [address] [place] [address] Shop Repairer: Clark Segovia MD CO2 [Moles/Vol] 24 mmol/L Normal 20-31 [facility] Comment on above: Performed By: #### T ROPI, HCG, BMPX, CDP #### [facility] [address] [place] [address] Shop Repairer: Clark Segovia MD Creatinine [Mass/Vol] 0.50 mg/dL Normal 0.50-0.90 [facility] Comment on above: Performed By: #### T ROPI, HCG, BMPX, CDP #### [facility] [address] [place] [address] Shop Repairer: Clark Segovia MD GFR, Amer >60 Normal >60 [facility] Comment on above: Performed By: #### T ROPI, HCG, BMPX, CDP #### [facility] [address] [place] [address] Shop Repairer: Clark Segovia MD GFR,non Amer >60 Normal >60 [facility] Comment on above: Performed By: #### T ROPI, HCG, BMPX, CDP #### [facility] [address] [place] [address] Shop Repairer: Clark Segovia MD Glucose [Mass/Vol] 95 mg/dL Normal 70-99 [facility] Comment on above: Performed By: #### T ROPI, HCG, BMPX, CDP #### [facility] [address] [place] [address] [phone] Shop Repairer: Clark Segovia MD Potassium [Moles/Vol] 3.8 mmol/L Normal 3.7-5.3 [facility] Comment on above: Performed By: #### T ROPI, HCG, BMPX, CDP #### [facility] [address] [place], [place] [phone] Shop Repairer: Clark Segovia MD Sodium [Moles/Vol] 138 mmol/L Normal 135-144 [facility] Comment on above: Performed By: #### T ROPI, HCG, BMPX, CDP #### [facility] [address] [place], [place] [phone] Shop Repairer: Clark Segovia MD Urea nitrogen [Mass/Vol] 4 mg/dL Low 6-20 [facility] Comment on above: Performed By: #### T ROPI, HCG, BMPX, CDP #### [facility] [address], [place] [phone] Shop Repairer: Clark Segovia MD Basic Metabolic Panel w/ Ref paresh to MGon 05-03-2021 Anion gap [Moles/Vol] 12 mmol/L 9 - 17 mmol/L [facility] Calcium [Mass/Vol] 9.2 mg/dL 8.6 - 10. 4 mg/dL [facility] [employer] Chloride [Moles/Vol] 102 mmol/L 98 - 10 7 mmol/L [facility] CO2 [Moles/Vol] 24 mmol/L 20 - 31 mmol/L [facility] Creatinine [Mass/Vol] 0.5 mg/dL 0.50 - 0.90 mg/dL [facility] GFR >60 >60 mL/min Auto Secure GFR Non- >60 >60 mL/min [facility] GFR/1.73 sq M.predicted MDRD (S/P/Bld) [Vol rate/Area] [facility] Comment on above: Average GFR for 20-2 9 years old: 116 mL/min/1.73sq m Chronic Kidney Disease: <60 mL/min/1.73sq m Kidney failure: <15 mL/min/1.73sq m eGFR calculated using average adult body mass. Additional eGFR calculator available at: http://www.[employer]multiple_crcl_2012.htm Glucose [Mass/Vol] 95 mg/dL 70 - 99 mg/dL [facility] Interpretation and review of laboratory results Abnormal [facility] Potassium [Moles/Vol] 3.8 mmol/L 3.7 - 5.3 mmol/L [facility] Sodium [Moles/Vol] 138 mmol/L 135 - 144 mmol/L [facility] Urea nitrogen (BldV) [Mass/Vol] 4 mg/dL Low 6 - 20 mg/dL [facility] CBC with Auto Differentialon 05-03-2021 Absolute Eos # 0.12 [facility] th Absolute Immature Granulocyte <0.03 [facility] Absolute Lymph # 2.11 [facility] He alth Absolute [place] # 0.86 [facility] lth Basophils (Bld) [#/Vol] 0.04 10*3/uL [facility] Basophils/100 WBC (Bld) 1 % 0 - 2 % [facility] Eosinophils/100 WBC (Bld) 1 % 1 - 4 % [facility] Hematocrit (Bld) [Volume fraction] 39.2 % 36.3 - 47.1 % [facility] Hemoglobin.gastrointe stinal spec 1 Ql (Stl) 13.6 g/dL 11.9 - 15.1 g/dL [facility] Immature granulocytes/100 WBC (Bld) 0 % 0 [facility] Lymphocytes/100 WBC (Bld) 25 % 24 - 43 % [facility] MCH (RBC) [Entitic mass] 32.4 pg 25.2 - 33.5 pg [facility] MCHC (RBC) [Mass/Vol] 34.7 g/dL 28.4 - 34.8 g/dL [facility] MCV (RBC) [Entitic vol] 93.3 fL 82.6 - 102.9 fL [facility] Monocytes/100 WBC (Bld) 10 % 3 - 12 % [facility] NRBC Automated 0.0 0.0 per 100 WBC [facility] Platelet distribution width (Bld) [Ratio] 12.4 % 11.8 - 14.4 % [facility] Platelet mean volume (Bld) [Entitic vol] 10.2 fL 8.1 - 13.5 fL [facility] Platelets (Bld) [#/Vol] 196 10*3/uL [facility] RBC (Bld) [#/Vol] 4.20 10*6/uL 3.95 - 5.1 1 m/uL [facility] Segmented neutrophils/100 WBC (Bld) 63 % 36 - 65 % [facility] Segs Absolute 5.36 [facility] Healt h WBC (Bld) [#/Vol] 8.5 10*3/uL [facility] CBC with Diffon 05-03-2021 Abs. Basophil 0.04 k/uL Normal 0.00-0.20 [facility] Comment on above: Performed By: #### T ROPI, HCG, BMPX, CDP #### [facility] [address] [place] [address] Shop Repairer: Clark Segovia MD Abs.Imm.Granulocyte <0.03 Normal 0.00-0.30 [facility] Comment on above: Performed By: #### T ROPI, HCG, BMPX, CDP #### [facility] [address] [place] [address] Shop Repairer: Clark Segovai MD Abs.Neutrophil (Seg) 5.36 k/uL Normal 1.50-8.10 [facility] Comment on above: Performed By: #### T ROPI, HCG, BMPX, CDP #### [facility] [address] [place] [address] Shop Repairer: Clark Segovia MD Basophils/100 WBC (Bld) 1 % Normal 0-2 [facility] Comment on above: Performed By: #### T ROPI, HCG, BMPX, CDP #### [facility] [address] [place] [address] Shop Repairer: Clark Segovia MD Eosinophils (Bld) [#/Vol] 0.12 10*3/uL Normal 0.00-0.44 [facility] Comment on above: Performed By: #### T ROPI, HCG, BMPX, CDP #### [facility] [address] [place] [address] Shop Repairer: Clark Segovia MD Eosinophils/100 WBC (Bld) 1 % Normal 1-4 [facility] Comment on above: Performed By: #### T ROPI, HCG, BMPX, CDP #### [facility] [address] [place] [address] Shop Repairer: Clark Segovia MD Erythrocyte distribution width (RBC) [Ratio] 12.4 % Normal 11.8-14.4 [facility] Comment on above: Performed By: #### T ROPI, HCG, BMPX, CDP #### [facility] [address] [place] [phone] Shop Repairer: Clark Segovia MD Hematocrit (Bld) [Volume fraction] 39.2 % Normal 36.3-47.1 [facility] Comment on above: Performed By: #### T ROPI, HCG, BMPX, CDP #### [facility] [address] [place] [address] Shop Repairer: Clark Segovia MD Hemoglobin (Bld) [Mass/Vol] 13.6 g/dL Normal 11.9-15.1 [facility] Comment on above: Performed By: #### T ROPI, HCG, BMPX, CDP #### [facility] [address] [place] [address] Shop Repairer: Clark Segovia MD Immature granulocytes/100 WBC (Bld) 0 % Normal 0 [facility] Comment on above: Performed By: #### T ROPI, HCG, BMPX, CDP #### [facility] [address] [place] [address] Shop Repairer: Clark Segovia MD Lymphocytes (Bld) [#/Vol] 2.11 10*3/uL Normal 1.10-3.70 [facility] Comment on above: Performed By: #### T ROPI, HCG, BMPX, CDP #### [facility] [address] [place] [address] Shop Repairer: Clark Segovia MD Lymphocytes/100 WBC (Bld) 25 % Normal 24-43 [facility] Comment on above: Performed By: #### T ROPI, HCG, BMPX, CDP #### [address] [address] Shop Repairer: Clark Segovia MD MCH (RBC) [Entitic mass] 32.4 pg Normal 25.2-33.5 [facility] Comment on above: Performed By: #### T ROPI, HCG, BMPX, CDP #### [facility] [address] [place] [address] Shop Repairer: Clark Segovia MD MCHC (RBC) [Mass/Vol] 34.7 g/dL Normal 28.4-34.8 [facility] Comment on above: Performed By: #### T ROPI, HCG, BMPX, CDP #### [facility] [address] [place] [address] Shop Repairer: Clark Segovia MD MCV (RBC) [Entitic vol] 93.3 fL Normal 82.6-102.9 [facility] Comment on above: Performed By: #### T ROPI, HCG, BMPX, CDP #### [address] [address] Shop Repairer: Clark Segovia MD Monocytes (Bld) [#/Vol] 0.86 10*3/uL Normal 0.10-1.20 [facility] Comment on above: Performed By: #### T ROPI, HCG, BMPX, CDP #### [facility] [address] [place] [address] Shop Repairer: Clark Segovia MD Monocytes/100 WBC (Bld) 10 % Normal 3-12 [facility] Comment on above: Performed By: #### T ROPI, HCG, BMPX, CDP #### [facility] [address] [place] [address] Shop Repairer: Clark Segovia MD Neutrophil (Seg) 63 % Normal 36-65 [facility] Comment on above: Performed By: #### T ROPI, HCG, BMPX, CDP #### [facility] [address] [place] [address] Shop Repairer: Clark Segovia MD NRBC Automated 0.0 per 100 WBC Normal 0.0 [facility] Comment on above: Performed By: #### T ROPI, HCG, BMPX, CDP #### [facility] [address] [place] [address] Shop Repairer: Clark Segovia MD Platelet mean volume (Bld) [Entitic vol] 10.2 fL Normal 8.1-13.5 [facility] Comment on above: Performed By: #### T ROPI, HCG, BMPX, CDP #### [facility] [address] [place] [address] Shop Repairer: Clark Segovia MD Platelets (Bld) [#/Vol] 196 10*3/uL Normal 138-453 [facility] Comment on above: Performed By: #### T ROPI, HCG, BMPX, CDP #### [facility] [address] [place] [address] 99968 Shop Repairer: Clark Segovia MD RBC (Bld) [#/Vol] 4.20 10*6/uL Normal 3.95-5.11 [facility] Comment on above: Performed By: #### T ROPI, HCG, BMPX, CDP #### [facility] [address] [place] [address] Shop Repairer: Clark Segovia MD WBC (Bld) [#/Vol] 8.5 10*3/uL Normal 3.5-11.3 [facility] Comment on above: Performed By: #### T ROPI, HCG, BMPX, CDP #### [place] [id number] [place] [phone] Shop Repairer: Clark Segovia MD CT CHEST PULMONARY EMBOLISM [...] Merle Griffith MD 05/03/21 Final result Normal [facility] No evidence of pulmo nary embolism or acute pulmonary abnormality. RECOMMENDATIONS: Unavailable [facility] RIS CONSOLIDATED EXAMINATION: CTA OF THE CHEST [...] No acute bone or soft tissue abnormality. [facility] Merle Belle MD - 05/03/2021 EXAMINATION: CTA [...] embolism or acute pulmonary abnormality. RECOMMENDATIONS: Unavailable [facility] Phone: Radiology Study observation (narrative) [facility] Phone: CT CHEST PULMONARY EMBOLISM W CONTRASTOrdered By: Merle Griffith on 05-03-2021 [facility] Work Phone: HCG Qualitative, Serumon hCG Qual Negative NEGATIVE [facility] [employer] Comment on above: Specimens with hCG l evels near the threshold of the test (25 mIU/mL) may give a negative or indeterminate result. In such cases, another test should be performed with a new specimen in 48-72 hours. If early is suspected clinically in this setting, correlation with quantitative serum b-hCG level is suggested. [facility] has confirmed the use of plasma for this test. This has not been cleared or approved by the U.S. Food and Drug Administration. The FDA has determined that such clearance is not necessary. [facility] HCG Screen, Bloodon 05-04-19 HCG Screen, Blood Negative Normal NEG [facility] Comment on above: Result Comment: Spec imens with hCG levels near the threshold of the test (25 mIU/mL) may give a negative or indeterminate result. In such cases, another test should be performed with a new specimen in 48-72 hours. If early is suspected clinically in this setting, correlation with quantitative serum b-hCG level is suggested. [facility] has confirmed the use of plasma for this test. This has not been cleared or approved by the U.S. Food and Drug Administration. The FDA has determined that such clearance is not necessary. Performed By: #### T NINI, HCG, BMPX, CDP #### [facility] [place] [address] Shop Repairer: Clark Segovia MD No Panel Informationon 05-03 [facility] [employer] Troponinon 05-03-2021 Troponin, High Sens <6 Normal 0-14 [facility] Comment on above: Result Comment: High Sensitivity Troponin values cannot be compared with other Troponin methodologies. Patients with high levels of Biotin oral intake (i.e >5mg/day) may have falsely decreased Troponin levels. Samples collected within 8 hours of biotin intake may require additional information for diagnosis. Performed By: #### T ROPI, HCG, BMPX, CDP #### [facility] [address] [place] [address] Shop Repairer: Clark Segovia MD Troponin, High Sensitivity <6 0 - 14 ng/L [facility] Comment on above: High Sensitivity Troponin values cannot be compared with other Troponin methodologies. Patients with high levels of Biotin oral intake (i.e >5mg/day) may have falsely decreased Troponin levels. Samples collected within 8 hours of biotin intake may require additional information for diagnosis. .eGFRon 02-06-2021 eGFR AA >60 Normal >=60 [facility] Comment on above: Order Comment: Order added by Discern rule Result Comment: See comment. Performed By: #### E GFR #### [address] [address] eGFR Non-AA >60 Normal >=60 [facility] Comment on above: Order Comment: Order [...] years Performed By: #### E GFR #### [address] [address] CBCon 02-06-2021 Erythrocyte distribution width (RBC) [Ratio] 14.6 % Normal 11.6-14.8 [facility] Comment on above: Performed By: #### C BC #### [address] [address] Hematocrit (Bld) [Volume fraction] 36.6 % Normal 36.0-46.0 [facility] Comment on above: Performed By: #### C BC #### [address] [address] Hemoglobin (Bld) [Mass/Vol] 12.9 g/dL Normal 12.0-16.0 [facility] Comment on above: Performed By: #### C BC #### [address] [address] MCH (RBC) [Entitic mass] 32.3 pg Normal 27.0-35.0 [facility] Comment on above: Performed By: #### C BC #### [address] [address] MCHC 35.2 % Normal 31.0-37.0 [facility] Comment on above: Performed By: #### C BC #### [address] [address] MCV (RBC) [Entitic vol] 91.7 fL Normal 80.0-100.0 [facility] Comment on above: Performed By: #### C BC #### [address] [address] Platelet 168 x10*3/mcL Normal 150-350 [facility] Comment on above: Performed By: #### C BC #### [address] [address] Platelet mean volume (Bld) [Entitic vol] 8.2 fL Normal 6.7-10.6 [facility] Comment on above: Performed By: #### C BC #### [address] [address] RBC 3.99 x10*6/mcL Normal 3.80-5.20 [facility] Comment on above: Performed By: #### C BC #### [address] [address] WBC 5.6 x10*3/mcL Normal 4.5-11.0 [facility] Comment on above: Performed By: #### C BC #### [address] [address] CMPon 02-06-2021 Albumin [Mass/Vol] 3.4 g/dL Normal 3.2-4.9 [facility] Comment on above: Performed By: #### A LC #### [address] [address] Albumin/Globulin [Mass ratio] 1.1 {ratio} Normal 1.1-2.2 [facility] Comment on above: Performed By: #### A LC #### [address] [address] Alk Phos 68 IU/L Normal 32-91 [facility] Comment on above: Performed By: #### A LC #### [address] [address] ALT [Catalytic activity/Vol] 309 U/L High 14-54 [facility] Comment on above: Performed By: #### A LC #### [address] [address] Anion gap [Moles/Vol] 13 mmol/L Normal 7-17 [facility] Comment on above: Performed By: #### A LC #### [address] [address] AST [Catalytic activity/Vol] 392 U/L High 15-41 [facility] Comment on above: Performed By: #### A LC #### [address] [address] Bili Total 0.7 mg/dL Normal 0.3-1.2 [facility] Comment on above: Performed By: #### A LC #### [address] [address] Calcium [Mass/Vol] 8.2 mg/dL Low 8.5-10.3 [facility] Comment on above: Performed By: #### A LC #### [address] [address] Chloride [Moles/Vol] 107 mmol/L Normal 98-110 [facility] Comment on above: Performed By: #### A LC #### [address] [address] CO2 [Moles/Vol] 24 mmol/L Normal 22-32 [facility] Comment on above: Performed By: #### A LC #### [address] [address] Creatinine [Mass/Vol] 0.58 mg/dL Normal 0.44-1.03 [facility] Comment on above: Performed By: #### A LC #### [address] [address] Glucose [Mass/Vol] 84 mg/dL Normal 70-99 [facility] Comment on above: Performed By: #### A LC #### [address] [address] Potassium [Moles/Vol] 3.9 mmol/L Normal 3.4-4.8 [facility] Comment on above: Performed By: #### A LC #### [address] [address] Protein [Mass/Vol] 6.4 g/dL Low 6.5-8.1 [facility] Comment on above: Performed By: #### A LC #### [address] [address] Sodium [Moles/Vol] 140 mmol/L Normal 133-142 [facility] Comment on above: Performed By: #### A LC #### [address] [address] Urea nitrogen [Mass/Vol] 13 mg/dL Normal 8-26 [facility] Comment on above: Performed By: #### A LC #### [address] [address] Urea nitrogen/Creatinine [Mass ratio] 22.4 mg/mg High 10.0-20.0 [facility] Comment on above: Performed By: #### A LC #### [address] [address] Ethanolon 12-27-2021 Ethanol, Plasma 124 mg/dL High <=9 [facility] Comment on above: Result Comment: To c onvert mg/dL to g/dL, divide result by 1,000. Legal limit of intoxication is 80 mg/dL (0.08 g/dL). Performed By: #### A LC #### [address] [address] Hep Func Panelon 02-06-2021 Albumin [Mass/Vol] 3.3 g/dL Normal 3.2-4.9 [facility] Comment on above: Performed By: #### C [id number] #### [address] [address] Alk Phos 68 IU/L Normal 32-91 [facility] Comment on above: Performed By: #### C [id number] #### [address] [address] ALT [Catalytic activity/Vol] 308 U/L High 14-54 [facility] Comment on above: Performed By: #### C [id number] #### [address] [address] AST [Catalytic activity/Vol] 404 U/L High 15-41 [facility] Comment on above: Performed By: #### C [id number] #### [address] [address] Bili Direct 0.1 mg/dL Normal 0.1-0.5 [facility] Comment on above: Performed By: #### C [id number] #### [address] [address] Bili Indirect 0.8 mg/dL Normal 0.0-1.0 [facility] Comment on above: Performed By: #### C [id number] #### [address] [address] Bili Total 0.9 mg/dL Normal 0.3-1.2 [facility] Comment on above: Performed By: #### C [id number] #### [address] [address] Protein [Mass/Vol] 6.3 g/dL Low 6.5-8.1 [facility] Comment on above: Performed By: #### C [id number] #### [address] [address] Hgb A1con 02-06-2021 Glucose [Mass/Vol] 117 mg/dL High 68-114 [facility] Comment on above: Result Comment: Math ematical Calc approx. The mean gluc equivalency of A1c Performed By: #### C [id number] #### [address] [address] Hgb A1c 5.7 % A1c High 4.0-5.6 [facility] Comment on above: Result Comment: Refe rence Range: 4.0 - 5.6 % Normal 5.7 - 6.4 % Pre-Diabetes > 6.5 % Diabetes Performed By: #### C [id number] #### [address] [address] Inpatient Clinical Summaryon 02-06-2021 Inpatient Clinical Summary [address] [address] Clinical Summary Person Information Name: Lyle Bailey Age: 31 Years : 1990 Sex: Female PCP: Marital Status: Single PCP: Race: White Ethnicity: Not or Language: Brazilian Visit Id: Visit Reason: Alcohol withdrawal Speciality: Acuity: Enc Type: Inpatient Med Service: Emergency Medicine Arrival: 02/05/2021 16:34:16 Discharge: Dispo Type: Admitted as Inpatient Address: [address] [place] [address] Diagnosis: 1:Alcohol intoxication; 2:Alcohol dependence; 3:Schizo-affective type [...] range between ( 27.2 and 40.8 ) [place] Auto: 5.1 % -- Normal range between ( 3.7 and 11.9 ) Eos Auto: 0.6 % -- Normal range between ( 0.0 and 5.4 ) Basophil Auto: 0.4 % -- Normal range between ( 0.0 and 1.5 ) Baso Absolute: 0.0 x10 Lymph Absolute: 4.5 x10 [place] Absolute: 0.6 x10 Neutro Absolute: 6.1 x10 [...] Negative ng/ (more content not included)... Normal [facility] MRSA, PCRon 02-06-2021 Methicillin Resistant Staph aurus(MRSA) Negative Normal [facility] Comment on above: Result Comment: The Respi Xpert MRSA Assay is a qualitative in [...] clinician. Performed By: #### A LC #### [address] [address] PTon 02-06-2021 INR Coag (PPP) [Relative time] 1.0 {INR} Normal <=3.5 [facility] Comment on above: Result Comment: INR has no normal range. INR Therapeutic range is: 2.0-3.0 (AF, CVA, TIAs, DVT prophylaxis, acute DVT) 2.5-3.5 ([facility] heart valves, recurrent thrombosis/emboli) Performed By: #### C BC #### [address] [address] PT Coag (PPP) [Time] 10.5 s Normal 9.4-12.1 [facility] Comment on above: Performed By: #### C BC #### [address] [address] PTTon 02-06-2021 aPTT Coag (Bld) [Time] 23.3 s Normal 20.2-27.0 [facility] Comment on above: Performed By: #### A #### [address] [address] Phosphoruson 02-06-2021 Phosphate [Mass/Vol] 3.2 mg/dL Normal 2.5-4.6 [facility] Comment on above: Performed By: #### C [id number] #### [address] [address] Progress Note-Nurseon 2020 Progress Note-Nurse Dr. Arnold was at bedside explained potential symptoms and problems that may occur after leaving while going through [facility]. Patient states she is going to go to an outpatient program. Patient wants to be discharged. Electronically signed by _ Martha Delgado 02/06/21 15:10 EST Normal [facility] Progress Note-Nurse Patient asked about her gabapentin and stated she wants to go home. provider notified about her request. Electronically signed by _ Martha Delgado 02/06/21 14:30 EST Normal [facility] Progress Note-Nurse Patient still sleepy , will answer question. Electronically signed by _ Martha Delgado 02/06/21 09:09 EST Normal [facility] TSHon 02-06-2021 TSH Qn 2.49 m[IU]/L Normal 0.45-5.33 [facility] Comment on above: Result Comment: Refe rence Ranges for individuals from to 18 years of age were obtained from The [employer] Handbook (20 ed) published by [facility]. Reference Ranges for Females: Females, 1st Trimester 0.05 ? 3.7 uIU/mL Females, 2nd Trimester 0.31 ? 4.35 uIU/mL Females, 3rd Trimester 0.41 ? 5.18 uIU/mL Performed By: #### C [id number] #### [address] [address] Total T4on 02-06-2021 T4 [Mass/Vol] 5.7 ug/dL Normal 5.0-11.5 [facility] Comment on above: Performed By: #### C [id number] #### [address] [address] .Fentanyl Scrn wo Conf,Uron 02-05-2021 Ur Fentanyl Scrn Negative Normal NEG <1.0 [facility] Comment on above: Performed By: #### C BC #### [address] [address] Ur Fentanyl Scrn Qnt 0.15 ng/mL Normal <=0.99 [facility] Comment on above: Performed By: #### C BC #### [facility] [address] [place] [address] .eGFRon 02-05-2021 eGFR AA >60 Normal >=60 [facility] Comment on above: Result Comment: See comment. Performed By: #### A LC #### [facility] [address] [place] [address] eGFR Non-AA >60 Normal >=60 [facility] Comment on above: Result Comment: Stag es [...] years Performed By: #### A LC #### [facility] [address] [place] [address] Amylaseon 02-05-2021 Amylase [Catalytic activity/Vol] 121 U/L High 28-100 [facility] Comment on above: Performed By: #### A LC #### [address] [address] B12/Folate Lvlon 02-05-2021 Cobalamin (Vitamin B12) [Mass/Vol] 406 pg/mL Normal 180-914 [facility] Comment on above: Performed By: #### C D:[id number] #### [facility] [address] [place] [address] Folate Lvl 10.5 ng/mL Normal >=5.9 [facility] Comment on above: Result Comment: A WH O Technical Consultation has determined that deficient Folate concentrations are considered to be less than 4 ng/mL. Performed By: #### C D:[id number] #### [address] [address] CBC w/ Diffon 02-05-2021 Erythrocyte distribution width (RBC) [Ratio] 14.3 % Normal 11.6-14.8 [facility] Comment on above: Performed By: #### C BC #### [address] [address] Hematocrit (Bld) [Volume fraction] 39.4 % Normal 36.0-46.0 [facility] Comment on above: Performed By: #### C BC #### [address] [address] Hemoglobin (Bld) [Mass/Vol] 13.8 g/dL Normal 12.0-16.0 [facility] Comment on above: Performed By: #### C BC #### [address] [address] MCH (RBC) [Entitic mass] 31.9 pg Normal 27.0-35.0 [facility] Comment on above: Performed By: #### C BC #### [address] [address] MCHC 34.9 % Normal 31.0-37.0 [facility] Comment on above: Performed By: #### C BC #### [address] [address] MCV (RBC) [Entitic vol] 91.2 fL Normal 80.0-100.0 [facility] Comment on above: Performed By: #### C BC #### [address] [address] Platelet 199 x10*3/mcL Normal 150-350 [facility] Comment on above: Performed By: #### C BC #### [address] [address] Platelet mean volume (Bld) [Entitic vol] 8.2 fL Normal 6.7-10.6 [facility] Comment on above: Performed By: #### C BC #### [address] [address] RBC 4.32 x10*6/mcL Normal 3.80-5.20 [facility] Comment on above: Performed By: #### C BC #### [address] [address] WBC 11.2 x10*3/mcL High 4.5-11.0 [facility] Comment on above: Performed By: #### C BC #### [address] [address] CMPon 02-05-2021 Albumin [Mass/Vol] 4.1 g/dL Normal 3.2-4.9 [facility] Comment on above: Performed By: #### C D:[id number] #### [address] [address] Albumin/Globulin [Mass ratio] 1.1 {ratio} Normal 1.1-2.2 [facility] Comment on above: Performed By: #### C [id number] #### [address] [address] Alk Phos 79 IU/L Normal 32-91 [facility] Comment on above: Performed By: #### C D:[id number] #### [address] [address] ALT [Catalytic activity/Vol] 320 U/L High 14-54 [facility] Comment on above: Performed By: #### C D:[id number] #### [address] [address] Anion gap [Moles/Vol] 14 mmol/L Normal 7-17 [facility] Comment on above: Performed By: #### C D:[id number] #### [address] [address] AST [Catalytic activity/Vol] 431 U/L High 15-41 [facility] Comment on above: Performed By: #### C D:[id number] #### [address] [address] Bili Total 0.4 mg/dL Normal 0.3-1.2 [facility] Comment on above: Performed By: #### C D:[id number] #### [address] [address] Calcium [Mass/Vol] 9.5 mg/dL Normal 8.5-10.3 [facility] Comment on above: Performed By: #### C D:[id number] #### [address] [address] Chloride [Moles/Vol] 105 mmol/L Normal 98-110 [facility] Comment on above: Performed By: #### C D:[id number] #### [address] [address] CO2 [Moles/Vol] 25 mmol/L Normal 22-32 [facility] Comment on above: Performed By: #### C D:[id number] #### [address] [address] Creatinine [Mass/Vol] 0.64 mg/dL Normal 0.44-1.03 [facility] Comment on above: Performed By: #### C D:[id number] #### [address] [address] Glucose [Mass/Vol] 103 mg/dL High 70-99 [facility] Comment on above: Performed By: #### C D:[id number] #### [address] [address] Potassium [Moles/Vol] 3.9 mmol/L Normal 3.4-4.8 [facility] Comment on above: Performed By: #### C D:[id number] #### [address] [address] Protein [Mass/Vol] 7.7 g/dL Normal 6.5-8.1 [facility] Comment on above: Performed By: #### C D:[id number] #### [address] [address] Sodium [Moles/Vol] 140 mmol/L Normal 133-142 [facility] Comment on above: Performed By: #### C D:[id number] #### [address] [address] Urea nitrogen [Mass/Vol] 13 mg/dL Normal - [facility] Comment on above: Performed By: #### C D:[id number] #### [address] [address] Urea nitrogen/Creatinine [Mass ratio] 20.3 mg/mg High 10.0-20.0 [facility] Comment on above: Performed By: #### C D:[id number] #### [address] [address] COV19 Rapidon 02-05-2021 Employed in healthcare? No [facility] Comment on above: Performed By: #### A LC #### [address] [address] Group care resident? No Normal [facility] Comment on above: Performed By: #### A LC #### [address] [address] In ICU? Yes [facility] Comment on above: Performed By: #### A LC #### [address] [address] status? Not [facility] Comment on above: Performed By: #### A LC #### [address] [address] Reason for Rapid Test Inpatient [facility] Comment on above: Performed By: #### A LC #### [address] [address] SARS-CoV-2 (COVID-19) RNA MOISES+probe Ql (Unsp spec) Negative Normal Negative [facility] Comment on above: Result Comment: The 2019 [...] using the ID NOW COVID-19 test by [employer], which has received Emergency Use Authorization (EUA) [...] following links: Fact Sheet for HealthCare Providers: https://www.fda.gov/media/243771/download Fact Sheet for Patients: https://www.fda.gov/media/834117/download Performed By: #### A LC #### [address] [address] SARS-CoV-2 (COVID-19) RNA MOISES+probe Ql (Unsp spec) No Normal [facility] Comment on above: Performed By: #### A LC #### [address] [address] SARS-CoV-2 (COVID-19) RNA MOISES+probe Ql (Unsp spec) Unknown Normal [facility] Comment on above: Performed By: #### A LC #### [address] [address] Symptomatic as defined by CDC? No Normal [facility] Comment on above: Performed By: #### A LC #### [address] [address] Diff Autoon 02-05-2021 Baso Absolute 0.0 x10*3/mcL Normal 0.0-0.2 [facility] Comment on above: Performed By: #### C BC #### [address] [address] Basophils/100 WBC (Bld) 0.4 % Normal 0.0-1.5 [facility] Comment on above: Performed By: #### C BC #### [address] [address] Eos Absolute 0.1 x10*3/mcL Normal 0.0-0.4 [facility] Comment on above: Performed By: #### C BC #### [address] [address] Eosinophils/100 WBC (Bld) 0.6 % Normal 0.0-5.4 [facility] Comment on above: Performed By: #### C BC #### [address] [address] Lymph Absolute 4.5 x10*3/mcL Normal 1.0-4.8 [facility] Comment on above: Performed By: #### C BC #### [address] [address] Lymphocytes/100 WBC (Bld) 39.7 % Normal 27.2-40.8 [facility] Comment on above: Performed By: #### C BC #### [address] [address] [place] Absolute 0.6 x10*3/mcL Normal 0.1-1.1 [facility] Comment on above: Performed By: #### C BC #### [address] [address] Monocytes/100 WBC (Bld) 5.1 % Normal 3.7-11.9 [facility] Comment on above: Performed By: #### C BC #### [address] [address] Neutro Absolute 6.1 x10*3/mcL Normal 1.8-7.7 [facility] Comment on above: Performed By: #### C BC #### [address] [address] Neutro Auto 54.2 % Normal 47.2-70.8 [facility] Comment on above: Performed By: #### C BC #### [address] [address] ED Clinical Summaryon 2020 ED Clinical Summary (Inserted Image. Tracy ble to display) [address] [id number] ED Clinical Summary Person Information Name: Lyle Bailey/[facility] Age: 31 Years : 1990 Sex: Female PCP: Marital Status: Single Race: White Ethnicity: Not or Language: Brazilian Visit Reason: Alcohol intoxication; Alcohol withdrawal Acuity: 3 Enc Type: Inpatient Med Service: Emergency Medicine Arrival: 02/05/2021 16:34:16 Discharge: LOS: 000 03:06 Checkin: 02/05/2021 16:34:16 Checkout: 02/05/2021 19:40:07 Dispo Type: Admitted as Inpatient Address: [address] [place] [address] Provider Notes: History of Present Illness Patient [...] in this document, created by the medical research associate for me, accurately reflects the services I [...] range between ( 27.2 and 40.8 ) [place] Auto: 5.1 % -- Normal range between ( 3.7 and 11.9 ) Eos Auto: 0.6 % (more content not included)... Normal [facility] ED Note-Physicianon 02-06-20 ED Note-Physician Chief Complaint [...] in this document, created by the medical research associate for me, accurately reflects the services I [...] patient?s conditi (more content not included)... Normal [facility] Ethanolon 02-05-2021 Ethanol, Plasma 509 mg/dL Critically abnormal <=9 [facility] Comment on above: Result Comment: Test completion time: 1746 Called date and time: 02/05/2021 17:47:12 EST Result called to and read back by: Michelle PATEL RN (First, Last, Title, Location) To convert mg/dL to g/dL, divide result by 1,000. Legal limit of intoxication is 80 mg/dL (0.08 g/dL). Performed By: #### A #### [place] [address] Lipaseon 12-26-2021 Lipase Lvl 118 IU/L High 22-51 [facility] Comment on above: Performed By: #### C [id number] #### [address] [address] Magnesiumon 02-05-2021 Magnesium [Mass/Vol] 2.2 mg/dL Normal 1.7-2.4 [facility] Comment on above: Performed By: #### C D:[id number] #### [address] [address] PTon 02-05-2021 INR Coag (PPP) [Relative time] 0.9 {INR} Normal <=3.5 [facility] Comment on above: Result Comment: INR has no normal range. INR Therapeutic range is: 2.0-3.0 (AF, CVA, TIAs, DVT prophylaxis, acute DVT) 2.5-3.5 ([facility] heart valves, recurrent thrombosis/emboli) Performed By: #### A LC #### [address] [address] PT Coag (PPP) [Time] 10.0 s Normal 9.4-12.1 [facility] Comment on above: Performed By: #### A LC #### [address] [address] PTTon 02-05-2021 aPTT Coag (Bld) [Time] 23.2 s Normal 20.2-27.0 [facility] Comment on above: Performed By: #### C D:[id number] #### [address] [address] UDS Compon 02-05-2021 Ur Amph Scrn Negative Normal NEG = <1000 [facility] Comment on above: Performed By: #### C D:[id number] #### [address] [address] Ur Janell Scrn Negative Normal NEG = <200 [facility] Comment on above: Performed By: #### C D:[id number] #### [address] [place] [address] Ur Benzodia Scrn Negative Normal NEG = <200 [facility] Comment on above: Performed By: #### C D:[id number] #### [address] [place] [address] Ur Cannab Scrn Negative Normal NEG = <50 [facility] Comment on above: Performed By: #### C D:[id number] #### [address] [address] Ur Cocaine Scrn Negative Normal NEG = <300 [facility] Comment on above: Performed By: #### C D:[id number] #### [address] [address] Ur Creatinine Tox Scrn <10.0 Normal [facility] Comment on above: Performed By: #### C D:[id number] #### [address] [address] Ur Methadone Scn Negative Normal NEG = <300 [facility] Comment on above: Performed By: #### C D:[id number] #### [address] [address] Ur Opiate Scrn Negative Normal NEG = <300 [facility] Comment on above: Performed By: #### C D:[id number] #### [address] [address] Ur Oxy Screen Negative Normal NEG = <100 [facility] Comment on above: Performed By: #### C D:[id number] #### [address] [place] [address] Ur Oxy Scrn Qnt 0 ng/mL Normal <=99 [facility] Comment on above: Performed By: #### C D:[id number] #### [address] [address] Ur PCP Scrn Negative Normal NEG = <25 [facility] Comment on above: Performed By: #### C D:[id number] #### [address] [place] [address] UA pH 5.0 Normal 4.5 - 7.8 [facility] Comment on above: Performed By: #### C D:[id number] #### [address] [address] UA Spec Grav 1.003 Normal 1.003-1.035 [facility] Comment on above: Performed By: #### C D:[id number] #### [address] [address] HSV BY PCR QUAL SKIN/MUCOSA LESIONon 09-25-2020 HSV-1 SKIN/MUCOSA Not detected Normal Not Detected [facility] Comment on above: Performed By: #### C OV19 #### [facility] [address] [place] [address] HSV-2 SKIN/MUCOSA Not detected Normal Not Detected [facility] Comment on above: Result Comment: The [...] Performed By: #### C OV19 #### [facility] [address] [place] [address] HSV BY PCR QUAL SKIN/MUCOSA LESIONon 09-24-2020 Lab Specimen Source Mucosa, Mouth Normal [facility] Comment on above: Performed By: #### C OV19 #### [facility] [address] [place] [address] HSV-1 SKIN/MUCOSA Canceled Normal [facility] Comment on above: Order Comment: TEST HSV BY PCR QUAL SKIN/MUCOSA LESION WAS CANCELLED, 09/24/2020 11:12 Performed By: #### H SVSS #### [facility] [address] [place] [address] HSV-2 SKIN/MUCOSA Canceled Normal [facility] Comment on above: Order Comment: TEST [...] detection. Performed By: #### H SVSS #### [facility] [address] [place] [address] GC + CHLAMYDIA BY AMPLIFIED DETECTIONon 09-23-2020 CHLAMYDIA TRACH.,AMPLIFIED Negative Normal Negative [facility] Comment on above: Result Comment: The APTIMA Combo 2 assay is FDA-approved for Chlamydia trachomatis and Neisseria gonorrhoeae testing on female endocervical and vaginal swabs, ThinPrep liquid pap samples, male urine samples and urethral swabs. Performance characteristics for Chlamydia trachomatis and Neisseria gonorrhoeae testing on specific zxr-JWV-wikgjfkw sample types (female urine samples) have been validated by [facility]. This laboratory is certified by CLIA to perform high complexity testing. Samples from all other sites are not validated for this method. Performed By: #### [facility] #### [facility] [address] [place] [address] N.GONORRHEA,AMPLIFIED Negative Normal Negative [facility] Comment on above: Result Comment: The APTIMA Combo 2 assay is FDA-approved for Chlamydia trachomatis and Neisseria gonorrhoeae testing on female endocervical and vaginal swabs, ThinPrep liquid pap samples, male urine samples and urethral swabs. Performance characteristics for Chlamydia trachomatis and Neisseria gonorrhoeae testing on specific tzx-CYT-ujfvblkk sample types (female urine samples) have been validated by [facility]. This laboratory is certified by CLIA to perform high complexity testing. Samples from all other sites are not validated for this method. Performed By: #### G [facility] #### [facility] [address] [place] [address] GC + CHLAMYDIA BY AMPLIFIED DETECTIONon 09-22-2020 Lab Specimen Source Throat Normal [facility] Comment on above: Performed By: #### [facility] #### [facility] [address] [place] [address] HSV BY PCR QUAL SKIN/MUCOSA LESIONon 09-22-2020 Lab Specimen Source Mucosa, Mouth Normal [facility] Comment on above: Order Comment: TEST HSV BY PCR QUAL SKIN/MUCOSA LESION WAS CANCELLED, 09/24/2020 11:12 Performed By: #### H SVSS #### [facility] [address] 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 Pt verbalized understanding. Electronic Signatures: Chilo Glover ([facility]) (Signed 23-Sep-2020 09:16) Authored: ED Notes, HPI, PMH, ROS, PE, Results/Vital Signs, MDM/ED Course, Clinical Impression, Attestation, Chart Review, Scores Leann Hall ([facility]) (Signature Pending) Authored: Chart Review, Scores Last Updated: 27-Sep-2020 10:06 by Leann Hall ([facility]) Normal [facility] *VAGINITIS DNA PROBEon 09-05 *VAGINITIS DNA PROBE Clinical Report: (D ) Specimen: GENITAL Collected: 09/05/2020 15:45 Status: Final Last Updated: 09/06/2020 09:20 MELVIN (Final) Negative AFTAB (Final) Positive TRICH (Final) Negative Normal [facility] Comment on above: Performed By: #### 3 0780 #### [facility] [address] [facility] [place] [address], [facility] CHLAMYDIA/GONORRHEA BY TMAon 09-05-2020 CHLAMYDIA BY TMA Negative Normal NEGATIVE [facility] Comment on above: Result Comment: No C hlamydia trachomatis rRNA Detected. Performed By: #### 3 1627 #### [facility] [address] [place] [address], [facility] GONORRHEA BY TMA Negative Normal NEGATIVE [facility] Comment on above: Result Comment: No Neisseria gonorrhoeae rRNA Detected. The Aptima Combo 2 Assay is a FDA approved target amplification nucleic acid probe test that utilizes target capture for the in vitro qualitative detection and differentiation of ribosomal RNA (rRNA) from Chlamydia trachomatis (CT) and/or Neisseria gonorrhoeae (GC) to aid the diagnosis of chlamydial and/or gonococcal urogenital disease using the [place] System. The Aptima Combo2 Assay involves: target capture; target amplification by Security Rover-Mediated Amplification (TMA); and detection of the amplification products (amplicon) by the Hybridization Protection Assay (HPA). The internal process controls of the [place] System monitor the target capture, amplification, and detection steps of the assay, this is NOT intended to control for sampling adequacy. Performed By: #### 3 1627 #### [facility] [address] HPV HIGH RISK BY TMAon 09-05 HPV DEFAULT Please refer to the Home Health Rn Cytology (Pap test) report for HPV test results. Normal [facility] Comment on above: Order Comment: [id number] Performed By: #### 3 1633 #### [facility] [address] Office Visit (Internal Medic ine)on 06-02-2020 [...] depression; LISA = N; Verified Transmission to [facility] 4285; Last Updated By: Vijay Antonio; 06/02/2020 8:33:07 AM Generalized anxiety disorder with panic attacks Renew: busPIRone HCl - 10 MG Oral Tablet; TAKE 1-2 TABLETS 3 times daily PRN Rx By: Nini Wolf; Dispense: 30 Days ; #:180 Tablet; Refill: 0;For: Generalized anxiety disorder with panic attacks; LISA = N; Verified Transmission to [facility] 1448; Last Updated By: [email or web address]; 06/02/2020 8:33:11 AM Nausea in adult Start: Ondansetron 4 MG Oral Tablet Disintegrating; TAKE 1 TABLET 3 times daily PRN nausea Rx By: Nini Wolf; Dispense: 0 Days ; #:30 Tablet; Refill: 0;For: Nausea in adult; LISA = N; Verified Transmission to [facility] 1448; Last Updated By: [email or web address]; 06/02/2020 8:39:25 AM Restless legs syndrome Start: rOPINIRole HCl - 0.5 MG Oral Tablet; TAKE 1 TABLET Bedtime Rx By: Nini Wolf; Dispense: 30 Days ; #:30 Tablet; Refill: 0;For: Restless legs syndrome; LISA = N; Verified Transmission to [facility] 1448; Last Updated By: [email or web address]; 06/02/2020 8:38:03 AM Patient Discussion/Summary F/U 2 [...] TIME. DO TO TECHNICAL DIFFICULTIES WITH THE [employer], THIS VIRTUAL VISIT WAS FINISHED VIA [...] DUE TO COVID-19 (CORONAVIRUS) [facility]. SHE WAS SEEN ON 05/25/20 FOR AN INTENTIONAL DRUG OVER DOSE. SHE WAS DRINKING ALCOHOL AND TOOK 60 400 MG GABAPENTIN. SHE WAS TRANSFERRED TO IN PATIENT FACILITY. [facility]. modifying factors consists of SHE [facility] BUT UNABLE TO SEE A PROVIDER [...] weight loss (more content not included)... Normal [facility] Office Visit (Internal Medic ine)on 05-17-2020 [...] attacks; LISA = N; Verified Transmission to [facility] 9410; Last Updated By: System, [employer]; 05/17/2020 1:30:14 PM Patient Discussion/Summary F/U BEFORE [...] DUE TO COVID-19 (CORONAVIRUS) [facility]. [facility] [place] [place] [facility]/20 FOR SUICIDAL IDEATION AND WAS KEPT OVER NIGHT FOR OBSERVATION. SHE WAS STILL SUICIDAL WITH A PLAN TO TAKE A BOTTLE OF PILLS ON 05/10/20 SO SHE WAS TRANSFERRED TO [facility] FOR AN IN PATIENT STAY FROM 05/10/20 - 05/14/20. SEVERAL MED CHANGES APPLIED, INCLUDING HER GABAPENTIN WHICH WAS CHANGED FROM 400 MG QID, TO 600 MG TID. 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 SHE LAST SEEN HER ON 04/14/20, BUT SHE DOES NOT WANT TO RETURN TO HER. SHE STATES THEY DO NOT GET ALONG . SHE IS SEEING [facility] COUNSELING AND WILL BE ABLE TO SHE [...] in sk (more content not included)... Normal [facility] CORONAVIRUS 2019 BY PCRon SARS-CoV-2 (COVID-19) RNA MOIESS+probe Ql (Unsp spec) Not detected Normal Not Detected [facility] Comment on above: Result [...] patient management decisions. Fact sheet for providers: https://www.fda.gov/media/953267/download Fact sheet for patients: https://www.fda.gov/media/907056/download This test has received FDA Emergency Use Authorization (EUA) and has been verified by [facility] ([facility]). This test is only authorized for the duration of time that circumstances exist to justify the authorization of the emergency use of in vitro diagnostic tests for the detection of SARS-CoV-2 virus and/or diagnosis of COVID-19 infection under section 564(b)(1) of the Act, 21 U.S.C. 360bbb-3(b)(1), unless the authorization is terminated or revoked sooner. [facility] is certified under CLIA-88 as qualified to perform high complexity testing. Testing is performed in the [facility] laboratories located at [address] [place] [address]. Performed By: #### C OV19 #### [address] [place] [address] Covid 19 Resultson SARS-CoV-2 (COVID-19) RNA MOISES+probe [...] You may also be contacted by the [facility] to see if any of your [...] or Naproxen (Aleve) can also be used. Vfwb-hug-shqjqyl cough and cold medicines can be used according to the instructions on the package. Some lier-tpk-tamljjo medicines also contain acetaminophen. Make sure you [...] water are not available, use alcohol-based hand fleet administrative assistant. Avoid touching your eyes, nose, and mouth [...] like ibuprofen (Motrin) (more content not included)... [facility] CORONAVIRUS 2019 BY PCRon DATE OF SYMPTOM ONSET [YYYYMMDD]? [id number] [facility] Comment on above: Performed By: #### C OV19 #### [facility] [place] [address] [place] [address] Lab Specimen Source Nasal, Nasopharyngeal [facility] Comment on above: Performed By: #### C OV19 #### [facility] [address] 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 Normal [facility] Provider Note - ED v2on Provider Note [...] was given a couple of days of Joppa and ibuprofen 600, she was also given a prescription for amoxicillin. 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 Normal [facility] Office Visit (Internal Medic ine)on 03-15-2020 Follow-up visit Diagnoses/Problems Assessed Bipolar depression (296.50) (F31.9) Generalized anxiety disorder with panic attacks (300.02,300.01) (F41.1,F41.0) Orders Bipolar depression Start: ARIPiprazole 10 MG Oral Tablet (Abilify); TAKE 1 TABLET DAILY Rx By: Nini Wolf; Dispense: 90 Days ; #:90 Tablet; Refill: 0;For: Bipolar depression; LISA = N; Verified Transmission to [email or web address] 1448; Last Updated By: [email or web address]; 03/15/2020 8:37:14 AM Start: LORazepam 0.5 MG Oral Tablet; TAKE 1 TABLET Twice daily PRN anxiety Rx By: Nini Wolf; Dispense: 30 Days ; #:60 Tablet; Refill: 0;For: Bipolar depression; LISA = N; Verified Transmission to [email or web address] 1448; Msg to Pharmacy: [facility] REVIEWED. VOID SCRIPT 30 DAYS AFTER WRITTEN DATE; Last Updated By: [email or web address]; 03/15/2020 8:37:12 AM Patient Discussion/Summary F/U BEFORE FAX 2 WORK EXCUSE/LETTER TO [phone] Provider Impressions SHE IS REQUESTING A LETTER [...] TO COVID-19 (CORONAVIRUS) Presents today for F/U [facility] VISIT ON 03/11/20 AND [facility] ER ON 03/13/20 BOTH FOR PANIC [...] skin lumps. (more content not included)... Normal [employer] ACUTE TOXICOLOGY PANEL, MACARENA Allen 03-14-2020 Acetaminophen [Mass/Vol] ug/mL Normal 10.0 - 30.0 [facility] Comment on above: Performed By: #### D RUBL #### [address] [address] Ethanol [Mass/Vol] 214 mg/dL Abnormal [facility] Comment on above: Result Comment: FOR MEDICAL USE ONLY. . REF VALUES <10 Performed By: #### D RUBL #### [address] [address] SALICYLATE <3 Normal 4 - 20 [facility] Comment on above: Performed By: #### D RUBL #### [address] [address] Acetaminophen [Mass/Vol] <10.0 See Below -[facility] Internal Medicine Work Phone: Comment on above: Reference Range: 10. 0 - 30.0 Ordering Provider: Briseida VANSERENE [address] Ethanol [Mass/Vol] 214 mg/dL Abnormal [facility] Internal Medicine Work Phone: Comment on above: FOR MEDICAL USE ONLY . .REF VALUES <10 Ordering Provider: Briseida WILKERSONCUCO REHANSERENE [address] Salicylates [Mass/Vol] mg/dL 4 - 20 [facility] Internal Medicine Work Phone: Comment on above: Ordering Provider: Briseida RHEACUCO REHANSERENE [address] ALCOHOLon 03-14-2020 Ethanol [Mass/Vol] 93 mg/dL Abnormal [facility] Comment on above: Result Comment: FOR MEDICAL USE ONLY. . REF VALUES <10 Performed By: #### C OV19 #### [facility] [address] [place] [address] Alcohol, Serumon 03-14-2020 Ethanol [Mass/Vol] 93 mg/dL Abnormal [facility] Internal Medicine Work Phone: Comment on above: FOR MEDICAL USE ONLY . .REF VALUES <10 Ordering Provider: Briseida MARROQUINMadeleine [address] BASIC METABOLIC PANELon 02- Anion gap [Moles/Vol] 15 mmol/L Normal 10 - 20 [facility] Comment on above: Performed By: #### B MP #### [address] [address] Calcium [Mass/Vol] 9.3 mg/dL Normal 8.6 - 10.3 [facility] Comment on above: Performed By: #### B MP #### [address] [address] Chloride [Moles/Vol] 108 mmol/L High 98 - 107 [facility] Comment on above: Performed By: #### B MP #### [address] [address] Creatinine [Mass/Vol] 0.56 mg/dL Normal 0.50 - 1.05 [facility] Comment on above: Performed By: #### B MP #### [address] [address] GFR- AM. >60 Normal >60 [facility] Comment on above: Result Comment: CALC ULATIONS OF ESTIMATED GFR ARE PERFORMED USING THE MDRD STUDY EQUATION FOR THE IDMS-TRACEABLE CREATININE METHODS. CLIN CHEM 2007;53:766-72 Performed By: #### B MP #### [place] [id number] GFR-NON AM. >60 Normal >60 [facility] Comment on above: Performed By: #### B MP #### [place] [id number] Glucose [Mass/Vol] 111 mg/dL High 74 - 99 [facility] Comment on above: Performed By: #### B MP #### [place] [id number] HCO3 (Bld) [Moles/Vol] 21 mmol/L Normal 21 - 32 [facility] Comment on above: Performed By: #### B MP #### [place] [id number] Potassium [Moles/Vol] 3.9 mmol/L Normal 3.5 - 5.3 [facility] Comment on above: Performed By: #### B MP #### [place] [id number] Sodium [Moles/Vol] 140 mmol/L Normal 136 - 145 [facility] Comment on above: Performed By: #### B MP #### [place] [id number] Urea nitrogen [Mass/Vol] 5 mg/dL Low 6 - 23 [facility] Comment on above: Performed By: #### B MP #### [address] [address] CBC AND DIFFERENTIALon 03-14 Basophils (Bld) [#/Vol] 0.10 10*3/uL Normal 0.00 - 0.10 [facility] Comment on above: Performed By: #### C BCDF #### [address] [address] Eosinophils (Bld) [#/Vol] 0.10 10*3/uL Normal 0.00 - 0.70 [facility] Comment on above: Performed By: #### C BCDF #### [address] [address] Lymphocytes (Bld) [#/Vol] 2.80 10*3/uL Normal 1.20 - 4.80 [facility] Comment on above: Performed By: #### C BCDF #### [address] [address] Monocytes (Bld) [#/Vol] 0.50 10*3/uL Normal 0.10 - 1.00 [facility] Comment on above: Performed By: #### C BCDF #### [address] [address] Neutrophils (Bld) [#/Vol] 6.30 10*3/uL Normal 1.20 - 7.70 [facility] Comment on above: Result Comment: Perc ent differential counts (%) should be interpreted in the context of the absolute cell counts (cells/L). Performed By: #### C BCDF #### [address] [address] NUCLEATED RBC 0.2 /100 WBC Normal [facility] Comment on above: Performed By: #### C BCDF #### [address] [address] Platelets (Bld) [#/Vol] 241 10*3/uL Normal 150 - 450 [facility] Comment on above: Performed By: #### C BCDF #### [address] [address] RBC 5.23 x10E12/L High 4.00 - 5.20 [facility] Comment on above: Performed By: #### C BCDF #### [address] [address] WBC (Bld) [#/Vol] 9.6 10*3/uL Normal 4.4 - 11.3 [facility] Comment on above: Performed By: #### C BCDF #### [address] [address] Complete Blood Count + Diffe rentialon 03-14-2020 Basophils (Bld) [#/Vol] 0.10 {x10E9/L} See Below [facility] Internal [facility] Work Phone: Comment on above: Reference Range: 0.0 0 - 0.10 Ordering Provider: Briseida GONZALEZ [address] Basophils/100 WBC (Bld) 0.6 % Normal 0.0 - 2.0 [facility] Internal [facility] Work Phone: Comment on above: Ordering Provider: Briseida GONZALEZ [address] Performed By: #### C BCDF #### [address] [address] Eosinophils (Bld) [#/Vol] 0.10 {x10E9/L} See Below [facility] Work Phone: Comment on above: Reference Range: 0.0 0 - 0.70 Ordering Provider: Briseida GONZALEZ [address] Eosinophils/100 WBC (Bld) 0.6 % Normal 0.0 - 6.0 [facility] Work Phone: Comment on above: Ordering Provider: Briseida ORELLANA LUISCARLEE [address] Performed By: #### C BCDF #### [address] [address] Erythrocyte distribution width (RBC) [Ratio] 13.1 % Normal 11.5 - 14.5 [facility] Work Phone: Comment on above: Reference Range: 11. 5 - 14.5 Ordering Provider: Briseida MARROQUINMadeleine [address] Performed By: #### C BCDF #### [address] [address] Hematocrit (Bld) [Volume fraction] 48.3 % High 36.0 - 46.0 [facility] Work Phone: Comment on above: Reference Range: 36. 0 - 46.0 Ordering Provider: Briseida ORELLANA LUISCARLEE [address] Performed By: #### C BCDF #### [address] [address] Hemoglobin (Bld) [Mass/Vol] 16.2 g/dL High 12.0 - 16.0 [facility] Work Phone: Comment on above: Reference Range: 12. 0 - 16.0 Ordering Provider: Briseida GONZALEZ [address] Performed By: #### C BCDF #### [address] [address] Lymphocytes (Bld) [#/Vol] 2.80 {x10E9/L} See Below [facility] Work Phone: Comment on above: Reference Range: 1.2 0 - 4.80 Ordering Provider: Briseida GONZALEZ [address] Lymphocytes/100 WBC (Bld) 28.6 % Normal 13.0 - 44.0 [facility] Work Phone: Comment on above: Reference Range: 13. 0 - 44.0 Ordering Provider: Briseida GONZALEZ [address] Performed By: #### C BCDF #### [address] [address] MCHC (RBC) [Mass/Vol] 33.6 g/dL Normal 32.0 - 36.0 [facility] Internal [facility] Work Phone: Comment on above: Reference Range: 32. 0 - 36.0 Ordering Provider: Briseida GONZALEZ [address] Performed By: #### C BCDF #### [address] [address] MCV (RBC) [Entitic vol] 92 fL Normal 80 - 100 [facility] Work Phone: Comment on above: Ordering Provider: Briseida ORELLANA LUISCARLEE [address] Performed By: #### C BCDF #### [address] [address] Monocytes (Bld) [#/Vol] 0.50 {x10E9/L} See Below [facility] Work Phone: Comment on above: Reference Range: 0.1 0 - 1.00 Ordering Provider: Briseida GONZALEZ [address] Monocytes/100 WBC (Bld) 5.0 % Normal 2.0 - 10.0 [facility] Work Phone: Comment on above: Ordering Provider: Briseida GONZALEZ [address] Performed By: #### C BCDF #### [address] [address] Neutrophils (Bld) [#/Vol] 6.30 {x10E9/L} See Below [facility] Work Phone: Comment on above: Reference Range: 1.2 0 - 7.70 Percent differential counts (%) should be interpreted in the context of the absolute cell counts (cells/L). Ordering Provider: Briseida Dugan Neutrophils/100 WBC (Bld) 65.2 % Normal 40.0 - 80.0 [facility] Work Phone: Comment on above: Reference Range: 40. 0 - 80.0 Ordering Provider: Briseida GONZALEZ [address] Performed By: #### C BCDF #### [address] [address] Platelets (Bld) [#/Vol] 241 {x10E9/L} 150 - 450 [facility] Work Phone: Comment on above: Ordering Provider: Briseida Dugan RBC (Bld) [#/Vol] 5.23 {x10E12/L} above high threshold See Below [facility] Work Phone: Comment on above: Reference Range: 4.0 0 - 5.20 Ordering Provider: Briseida GONZALEZ [address] WBC (Bld) [#/Vol] 0.2 {/100_WBC} [facility] Work Phone: Comment on above: Ordering Provider: Briseida GONZALEZ [address] WBC (Bld) [#/Vol] 9.6 {x10E9/L} 4.4 - 11.3 [facility] Internal [facility] Work Phone: Comment on above: Ordering Provider: Briseida GONZALEZ [address] HEPATIC FUNCTION PANELon Albumin [Mass/Vol] 4.2 g/dL Normal 3.4 - 5.0 [facility] Comment on above: Performed By: #### H EPFP #### [address] [address] ALP [Catalytic activity/Vol] 83 U/L Normal 33 - 110 [facility] Comment on above: Performed By: #### H EPFP #### [address] [address] ALT [Catalytic activity/Vol] 69 U/L High 7 - 45 [facility] Comment on above: Result Comment: Tran ents treated with Sulfasalazine may generate falsely decreased results for ALT. Performed By: #### H EPFP #### [address] [address] AST [Catalytic activity/Vol] 70 U/L High 9 - 39 [facility] Comment on above: Performed By: #### H EPFP #### [address] [address] Bilirubin [Mass/Vol] 0.4 mg/dL Normal 0.0 - 1.2 [facility] Comment on above: Performed By: #### H EPFP #### [address] [address] Bilirubin.indirect [Mass/Vol] 0.1 mg/dL Normal 0.0 - 0.3 [facility] Comment on above: Performed By: #### H EPFP #### [address] [address] Protein [Mass/Vol] 7.1 g/dL Normal 6.4 - 8.2 [facility] Comment on above: Performed By: #### H EPFP #### [address] [address] Hepatic Function Panelon Albumin BCP dye [Mass/Vol] 4.2 g/dL 3.4 - 5.0 [facility] Work Phone: Comment on above: Ordering Provider: Briseida GONZALEZ [address] ALP [Catalytic activity/Vol] 83 U/L 33 - 110 [facility] Work Phone: Comment on above: Ordering Provider: Briseida GONZALEZ [address] ALT With P-5'-P [Catalytic activity/Vol] 69 U/L above high threshold 7 - 45 [facility] Work Phone: Comment on above: Patients treated wit h Sulfasalazine may generate falsely decreased results for ALT. Ordering Provider: Briseida GONZALEZ [address] AST With P-5'-P [Catalytic activity/Vol] 70 U/L above high threshold 9 - 39 [facility] Work Phone: Comment on above: Ordering Provider: Briseida GONZALEZ [address] Bilirubin [Mass/Vol] 0.4 mg/dL 0.0 - 1.2 [facility] Internal Medicine Work Phone: Comment on above: Ordering Provider: Briseida GONZALEZ [address] Bilirubin.direct [Mass/Vol] 0.1 mg/dL 0.0 - 0.3 [facility] Work Phone: Comment on above: Ordering Provider: Briseida GONZALEZ [address] Protein [Mass/Vol] 7.1 g/dL 6.4 - 8.2 [facility] Work Phone: Comment on above: Ordering Provider: Briseida GONZALEZ [address] Metabolic Panelon 03-14-2020 Anion gap [Moles/Vol] 15 mmol/L 10 - 20 [facility] Work Phone: Comment on above: Ordering Provider: Briseida GONZALEZ [address] Calcium [Mass/Vol] 9.3 mg/dL 8.6 - 10.3 [facility] Work Phone: Comment on above: Ordering Provider: Briseida GONZALEZ [address] Chloride [Moles/Vol] 108 mmol/L above high threshold 98 - 107 [facility] Work Phone: Comment on above: Ordering Provider: Briseida GONZALEZ [address] CO2 [Moles/Vol] 21 mmol/L 21 - 32 [facility] Work Phone: Comment on above: Ordering Provider: Briseida Dugan Creatinine [Mass/Vol] 0.56 mg/dL See Below [facility] Internal Medicine Work Phone: Comment on above: Reference Range: 0.5 0 - 1.05 Ordering Provider: Briseida Dugan Glucose [Mass/Vol] 111 mg/dL above high threshold 74 - 99 [facility] Work Phone: Comment on above: Ordering Provider: Briseida Dugan Potassium [Moles/Vol] 3.9 mmol/L 3.5 - 5.3 [facility] Work Phone: Comment on above: Ordering Provider: Briseida Dugan Sodium [Moles/Vol] 140 mmol/L 136 - 145 [facility] Work Phone: Comment on above: Ordering Provider: Briseida Dugan Urea nitrogen [Mass/Vol] 5 mg/dL below low threshold 6 - 23 [facility] Work Phone: Comment on above: Ordering Provider: Briseida Dugan Otheron 03-14-2020 >60 >60 [facility] Work Phone: Comment on above: CALCULATIONS OF JEREL MATED GFR ARE PERFORMED USING THE MDRD STUDY EQUATION FOR THE IDMS-TRACEABLE CREATININE METHODS. CLIN CHEM 2007;53:766-72 Ordering Provider: Briseida Dugan DRUG SCREEN,URINEon 03-13-19 21 AMPHETAMINE SCREEN,U Negative Normal NEGATIVE [facility] Comment on above: Result Comment: CUTO FF LEVEL: 500 NG/ML Cross-reactivity has been reported with high concentrations of the following drugs: buproprion, chloroquine, chlorpromazine, ephedrine, mephentermine, fenfluramine, phentermine, phenylpropanolamine, pseudoephedrine, and propranolol. Performed By: #### D RUG3 #### [place] [address] [place] [address] BARBITURATES SCREEN,U Negative Normal NEGATIVE [facility] Comment on above: Result Comment: CUTO FF LEVEL: 200 NG/ML Performed By: #### D RUG3 #### [place] [address] BENZODIAZEPINES SCREEN,U Negative Normal NEGATIVE [facility] Comment on above: Result Comment: CUTO FF LEVEL: 200 NG/ML Performed By: #### D RUG3 #### [place] [address] CANNABINOIDS SCREEN,U Negative Normal NEGATIVE [facility] Comment on above: Result Comment: CUTO FF LEVEL: 50 NG/ML Performed By: #### D RUG3 #### [place] [address] COCAINE METABOLITE SCREEN,U Negative Normal NEGATIVE [facility] Comment on above: Result Comment: CUTO FF LEVEL: 150 NG/ML Performed By: #### D RUG3 #### [place] [address] DRUG SCREEN COMMENT SEE BELOW Normal [facility] Comment on above: Result Comment: Drug screen results are presumptive and should not be used to assess compliance with prescribed medication. Contact the performing [facility] laboratory to add-on definitive confirmatory testing if [...] directors. Performed By: #### D RUG3 #### [place] [address] FENTANYL SCREEN,URINE Negative Normal NEGATIVE [facility] Comment on above: Result Comment: CUTO FF LEVEL: 1 NG/ML The performance characteristics of this test have been determined by the individual laboratory site where testing is performed. This test has not been cleared or approved by the FDA; however, the FDA has determined that such clearance is not necessary. Performed By: #### D RUG3 #### [place] [address] METHADONE SCREEN,U Negative Normal NEGATIVE [facility] Comment on above: Result Comment: CUTO FF LEVEL: 150 NG/ML The metabolite B-wdror-plffaglrkipqwz (LAAM) is not detected by this method in concentrations that would be found in the urine of patients on LAAM therapy. Performed By: #### D RUG3 #### [place] [address] OPIATES SCREEN,U Negative Normal NEGATIVE [facility] Comment on above: Result Comment: CUTO FF LEVEL: 300 NG/ML The opiate screen does not detect fentanyl, meperidine, or tramadol. Oxycodone is not consistently detected (refer to Oxycodone Screen, Urine result). Performed By: #### D RUG3 #### [place] [address] OXYCODONE SCREEN,U Negative Normal NEGATIVE [facility] Comment on above: Result Comment: CUTO FF LEVEL: 100 NG/ML This test will accurately detect both oxycodone and oxymorphone. Performed By: #### D RUG3 #### [place] [address] PCP SCREEN,U Negative Normal NEGATIVE [facility] Comment on above: Result Comment: CUTO FF LEVEL: 25 NG/ML Cross-reactivity has been reported with dextromethorphan. Performed By: #### D RUG3 #### [place] [address] HCG,URINEon 03-13-2020 Beta HCG ( test) Ql (U) Negative Normal Negative [facility] Comment on above: Performed By: #### H CGU #### [place] [address] Otheron 03-13-2020 Amphetamines Screen Ql (U) Negative NEGATIVE [facility] Work Phone: Comment on above: CUTOFF LEVEL: 500 NG /ML Cross-reactivity has been reported with high concentrations of the following drugs: buproprion, chloroquine, chlorpromazine, ephedrine, mephentermine, fenfluramine, phentermine, phenylpropanolamine, pseudoephedrine, and propranolol. Ordering Provider: Briseida GONZALEZ [address] Benzoylecgonine Screen Ql (U) Negative NEGATIVE [facility] Work Phone: Comment on above: CUTOFF LEVEL: 150 NG /ML Ordering Provider: Briseida GONZALEZ [address] Methadone Screen Ql (U) Negative NEGATIVE [facility] Work Phone: Comment on above: CUTOFF LEVEL: 150 NG /ML The metabolite J-laarl-nfxfafqfdfaloy (LAAM) is not detected by this method in concentrations that would be found in the urine of patients on LAAM therapy. Ordering Provider: Briseida GONZALEZ 13287 Opiates Screen Ql (U) Negative NEGATIVE [facility] Work Phone: Comment on above: CUTOFF LEVEL: 300 NG /ML The opiate screen does not detect fentanyl, meperidine, or tramadol. Oxycodone is not consistently detected (refer to Oxycodone Screen, Urine result). Ordering Provider: Briseida GONZALEZ 21987 Oxycodone+Oxymorphone Screen Ql (U) Negative NEGATIVE [facility] Work Phone: Comment on above: CUTOFF LEVEL: 100 NG /ML This test will accurately detect both oxycodone and oxymorphone. Ordering Provider: Briseida GONZALEZ 89775 SEE BELOW [facility] Work Phone: Comment on above: Drug screen results are presumptive and should not be used to assess compliance with prescribed medication. Contact the performing [facility] laboratory to add-on definitive confirmatory testing if [...] laboratory medical directors. Ordering Provider: Briseida GONZALEZ 38631 Provider Note - ED v2on 02-13 Provider [...] same issue. She presents today here at [place] as her anxiety continues to worsen. She [...] made to minimize errors. Minor errors in players club representative may be present. Please call if questions.. 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 She will need this redrawn before she can be medically cleared. She has been medically cleared otherwise. Patient case transitioned to attending physician, Dr. Pierre CLINICAL IMPRESSION Diagnosis/Annotation: ED Dx Name:Anxiety Code:F41.9 Name:Alcohol intoxication Code:F10.929 Disp (more content not included)... Normal [facility] Risk Screen - Adult Emergenc [...] Learning Preferencesindividual instruction Cultural Considerationsnone Developmental Considerationsnone Oriental Orthodox Considerationsnone Learning Assessment (Other Learner): Learning Assessment [...] an [place] [place] [place] /[place]): no Electronic Signatures: Jeronimo Teixeira (LILY) (Signed 13-Mar-2020 21:24) Authored: Preferred Language, Advanced Directives, Family Violence Adult, Learning Assessment (Patient), Learning Assessment (Other Learner), Pressure Injury/TB/Substance, Pressure Injury, CAGE Last Updated: 13-Mar-2020 21:24 by Jeronimo Teixeira (RN) [facility] Triage - EDon 03-13-2020 Triage - ED Quick Triage: Are You no Have You Given In The Last 6 Weeksno Are You Currently Breastfeedingno The patient and/or guardian verbally acknowledges placement for services into the following (when Urgent Care Service hours are operating):emergency department Chart Review: ARRIVAL INFORMATION Mode of Arrival: ambulance Agency Name: [facility] CHIEF COMPLAINT LYLE BAILEY is a [...] obeys commands Best Verbal Response: (V5) oriented Anatone Score: 15 Cough lasting greater than 3 [...] 13-Mar-2020 21:23 by Jeronimo Teixeira (RN) Normal [facility] UA MICROSCOPICon 03-13-2020 RBC 1 /HPF Normal 0-5 [facility] Comment on above: Performed By: #### U AMIC #### [address] [address] WBC (U) [#/Vol] /uL Normal 0-5 [facility] Comment on above: Performed By: #### U AMIC #### [address] [address] URINALYSIS WITH CULTURE IF I NDICATEDon 03-13-2020 Appearance (U) CLEAR Normal CLEAR [facility] Comment on above: Performed By: #### C BCDF #### [address] [address] Bilirubin Ql (U) Negative Normal NEGATIVE [facility] Comment on above: Performed By: #### C BCDF #### [address] [address] Color (U) Colorless Normal STRAW,YELLOW [facility] Comment on above: Performed By: #### C BCDF #### [address] [address] Glucose Ql (U) Negative Normal NEGATIVE [facility] Comment on above: Performed By: #### C BCDF #### [address] [address] Hemoglobin Ql (U) SMALL(1+) Abnormal NEGATIVE [facility] Comment on above: Performed By: #### C BCDF #### [address] [address] Ketones Ql (U) Negative Normal NEGATIVE [facility] Comment on above: Performed By: #### C BCDF #### [address] [address] Leukocyte esterase Test strip Ql (U) Negative Normal NEGATIVE [facility] Comment on above: Performed By: #### C BCDF #### [address] [address] Nitrite Ql (U) Negative Normal NEGATIVE [facility] Comment on above: Performed By: #### C BCDF #### [address] [address] pH (U) 7.0 [pH] Normal 5.0 - 8.0 [facility] Comment on above: Performed By: #### C BCDF #### [address] [address] Protein Ql (U) Negative Normal NEGATIVE [facility] Comment on above: Performed By: #### C BCDF #### [address] [address] Specific gravity (U) [Rel density] 1.001 Low 1.005 - 1.035 [facility] Comment on above: Performed By: #### C BCDF #### [address] [address] Urobilinogen (U) [Mass/Vol] mg/dL Normal 0.0 - 1.9 [facility] Comment on above: Performed By: #### C BCDF #### [address] [address] Appearance (U) CLEAR [facility]AR [facility] Work Phone: Comment on above: Ordering Provider: Briseida GONZALEZ [address] Color (U) Colorless See Below [facility] Work Phone: Comment on above: Reference Range: STR AW,YELLOW Ordering Provider: Briseida Dugan Glucose Ql (U) Negative NEGATIVE [facility] Work Phone: Comment on above: Ordering Provider: Briseida GONZALEZ [address] Ketones Ql (U) Negative NEGATIVE [facility] Work Phone: Comment on above: Ordering Provider: Briseida Dugan Leukocyte esterase Test strip Ql (U) Negative NEGATIVE [facility] Work Phone: Comment on above: Ordering Provider: Briseida Dugan pH (U) 7.0 [pH] 5.0 - 8.0 [facility] Work Phone: Comment on above: Ordering Provider: Briseida Dugan Protein (U) [Mass/Vol] Negative NEGATIVE [facility] Work Phone: Comment on above: Ordering Provider: Briseida Dugan RBC (U) [#/Vol] SMALL(1+) Abnormal NEGATIVE [facility] Work Phone: Comment on above: Ordering Provider: Briseida Dugan Specific gravity (U) [Rel density] 1.001 1 below low threshold See Below [facility] Work Phone: Comment on above: Reference Range: 1.0 05 - 1.035 Ordering Provider: Briseida GONZALEZ [address] URINALYSIS WITH CULTURE IF INDICATED Negative NEGATIVE [facility] Work Phone: Comment on above: CUTOFF LEVEL: 1 NG/M L The performance characteristics of this test have been determined by the individual laboratory site where testing is performed. This test has not been cleared or approved by the FDA; however, the FDA has determined that such clearance is not necessary. Ordering Provider: Briseida MARROQUINO 08297 URINALYSIS WITH CULTURE IF INDICATED <2.0 0.0 - 1.9 [facility] Work Phone: Comment on above: Ordering Provider: Briseida GONZALEZ 59901 Urinalysison 03-13-2020 Barbiturates Screen Ql (U) Negative NEGATIVE [facility] Work Phone: Comment on above: CUTOFF LEVEL: 200 NG /ML Ordering Provider: Briseida GONZALEZ 63[address] Benzodiazepines Ql (U) Negative NEGATIVE [facility] Work Phone: Comment on above: CUTOFF LEVEL: 200 NG /ML Ordering Provider: Briseida GONZALEZ 62921 Cannabinoids Screen Ql (U) Negative NEGATIVE [facility] Work Phone: Comment on above: CUTOFF LEVEL: 50 NG/ ML Ordering Provider: Briseida GONZALEZ 71067 Phencyclidine Ql (U) Negative NEGATIVE [facility] Internal [facility] Work Phone: Comment on above: CUTOFF LEVEL: 25 NG/ ML Cross-reactivity has been reported with dextromethorphan. Ordering Provider: Briseida GONZALEZ 69921 Urinalysis, Microscopicon Urinalysis, Microscopic 1 {/HPF} 0-5 [facility] Work Phone: Comment on above: Ordering Provider: Briseida GONZALEZ [address] Urinalysis, Microscopic <1 0-5 [facility] Work Phone: Comment on above: Ordering Provider: Briseida GONZALEZ 66285 Urine Teston 03-13 HCG ( test) Ql (U) Negative Negative [facility] Work Phone: Comment on above: Ordering Provider: Briseida GONZALEZ 74869 Office Visit (Internal Medic ine)on 03-02-2020 Follow-up [...] 03/02/2020 1:13:24 PM;Ordered; For:Hepatitis-C; Ordered By:Nathan Barlow; Skunm-[id number], Serum; Specimen Source:Blood (BLD); Status:Active; Requested for:02Mar2020; [...] Test); Due: (more content not included)... [facility]ONAVIRUS 2019 BY PCRon SARS-CoV-2 (COVID-19) RNA MOISES+probe Ql (Unsp spec) Not detected Normal Not Detected [facility] Comment on above: Result [...] patient management decisions. Fact sheet for providers: https://www.fda.gov/media/821404/download Fact sheet for patients: https://www.fda.gov/media/943766/download This test has received FDA Emergency Use Authorization (EUA) and has been verified by [facility] ([facility]). This test is only authorized for the duration of time that circumstances exist to justify the authorization of the emergency use of in vitro diagnostic tests for the detection of SARS-CoV-2 virus and/or diagnosis of COVID-19 infection under section 564(b)(1) of the Act, 21 U.S.C. 360bbb-3(b)(1), unless the authorization is terminated or revoked sooner. [facility] is certified under CLIA-88 as qualified to perform high complexity testing. Testing is performed in the [facility] laboratories located at [address] [place] [address]. This is a corrected result. Previous value was PENDING, verified at 02/24/2020 10:55 Performed By: #### C OV19 #### [address] [place] [address] Covid 19 Resultson 1 SARS-CoV-2 (COVID-19) RNA [...] You may also be contacted by the [facility] to see if any of your [...] or Naproxen (Aleve) can also be used. Crza-bjc-rinqbzt cough and cold medicines can be used according to the instructions on the package. Some knan-ejd-alrodxx medicines also contain acetaminophen. Make sure you [...] water are not available, use alcohol-based hand fleet administrative assistant. Avoid touching your eyes, nose, and mouth [...] like ibuprofen (Motrin) (more content not included)... [facility] CORONAVIRUS 2019 BY PCRon DATE OF SYMPTOM ONSET [YYYYMMDD]? [id number] [facility] Comment on above: Performed By: #### C OV19 #### [facility] [address] [place] [address] Lab Specimen Source Nasal, Nasopharyngeal [facility] Comment on above: Performed By: #### C OV19 #### [facility] [id number] [place] [address]. [place] [address] Coronavirus 2019 RNA by PCR, Symptomaticon 02-23-2020 When did you start to experience these symptoms [Date and time] [PhenX] 20200221 1 [facility] Work Phone: Comment on above: Ordering Provider: Vasquez HALL [address] Coronavirus 2019 RNA by PCR, Symptomatic NOT DETECTED See Below [facility] Work Phone: [...] make patient management decisions.Fact sheet for providers: https://www.fda.gov/media/179931/downloadFact sheet for patients: https://www.fda.gov/media/173431/downloadThis test has received FDA Emergency Use Authorization (EUA) and has been verified by [facility] ([facility]). This test is only authorized for the duration of time that circumstances exist to justify the authorization of the emergency use of in vitro diagnostic tests for the detection of SARS-CoV-2 virus and/or diagnosis of COVID-19 infection under section 564(b)(1) of the Act, 21 U.S.C. 360bbb-3(b)(1), unless the authorization is terminated or revoked sooner. [facility] is certified under CLIA-88 as qualified to perform high complexity testing. Testing is performed in the [facility] laboratories located at [address] [place] [address].This is a corrected result. 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 Is : no REVIEW [...] Updated: 27-Jan-2020 11:59 by Colette Howell (PAC) [facility] URINE CULTURE,BACTERIALon URINE CULTURE,BACTERIAL PATIENT: LYLE BAILEY LOCATION: [facility]#: [id number] : 89 AGE: SEX: F ORDERED BY: COLETTE HOWELL SOURCE: URINE COLLECTED: 01/27/20 11:53 ANTIBIOTICS AT TRELL.: RECEIVED : 01/28/20 00:35 SITE: Vasquez Ramos S URINE CULTURE,BACTERIAL FINAL 01/30/20 00:28 ISOLATE1 : Escherichia coli >100,000 CFU/ML Organism E coli Antibiotic BP INTRP Ampicillin R Amox/Clavulanate S Ceftriaxone S Cefotaxime N/R Cefazolin S Ciprofloxacin S Nitrofurantoin S Gentamicin S Levofloxacin S Piperc/Tazobact S Trimeth/Sulfa S Tetracycline S S=SUSCEPTIBLE I=INTERMEDIATE R=RESISTANT SDD=SUSCEPTIBLE DOSE DEPENDENT NS=NONSUSCEPTIBLE X=REPORTED IN ERROR Normal [facility] Comment on above: Performed By: #### C BCDF #### [facility] [address] [place] [address] Office Visit (Internal Medic ine)on 01-20-2020 Follow-up visit Diagnoses/Problems Assessed Headache (784.0) (R51.9) Patient Discussion/Summary F/U BEFORE FAX WORK EXCUSE TO [phone] Chief Complaint An interactive audio and video [...] 4 TIMES DAILY Vitals Vital Signs Recorded: [id number] 09:42AM Tobacco Usea) Yes Patient encouraged to stop using tobacco productsYes Fall Screeninga) No falls within the last year Physical Exam Constitutional General appearance: Alert and in no acute distress. Psychiatric Orientation: Oriented to person, place, and time. Mood and affect: Normal. Signatures Electronically signed by : MOHAN Mcmillan; Jan 20 2020 10:07AM EST (Author) Normal [facility] CORONAVIRUS 2019 BY PCRon SARS-CoV-2 (COVID-19) RNA MOISES+probe Ql (Unsp spec) Not detected Normal Not Detected [facility] Comment on above: Result Comment: . This [...] this test method. Fact sheet for providers: https://www.fda.gov/media/199601/download Fact sheet for patients: https://www.fda.gov/media/036495/download This test has received FDA Emergency Use Authorization [EUA] and has been verified by [facility] ([facility]). This test is only authorized for the duration of time that circumstances exist to justify the authorization of the emergency use of in vitro diagnostic tests for the detection of SARS-CoV-2 virus and/or diagnosis of COVID-19 infection under section 564(b)(1) of the Act, 21 U.S.C. 360bbb-3(b)(1), unless the authorization is terminated or revoked sooner. [facility] is certified under CLIA-88 as qualified to perform high complexity testing. Testing is performed in the [facility] laboratories located at [address] [place] [address]. Performed By: #### C OV19 #### [place] [address] [place] [address] CORONAVIRUS 2019 BY PCRon Lab Specimen Source Nasal, Nasopharyngeal Normal [facility] Comment on above: Performed By: #### C OV19 #### [place] [address] [place] [address] DATE OF SYMPTOM ONSET [YYYYMMDD]? 20200106 Normal [facility] Comment on above: Performed By: #### C OV19 #### [place] [address] [place] [address] EMPLOYED IN HEALTHCARE? No Normal [facility] Comment on above: Performed By: #### C OV19 #### [facility] [address] [place] [address] HOSPITALIZED (OR PLANNED TO BE ADMITTED)? No Normal [facility] Comment on above: Performed By: #### C OV19 #### [facility] [address] [place] [address] ICU? No Normal [facility] Comment on above: Performed By: #### C OV19 #### [facility] [address] [place] [address] ? No Normal [facility] Comment on above: Performed By: #### C OV19 #### [facility] [address] [place] [address] RESIDENT IN CONGREGATE CARE SETTING? No Normal [facility] Comment on above: Performed By: #### C OV19 #### [facility] [address] [place] [address] SARS-CoV-2 (COVID-19) Ab IA Ql No Normal [facility] Comment on above: Performed By: #### C OV19 #### [facility] [address] [place] [address] SYMPTOMATIC DEFINED BY CDC? Yes Normal [facility] Comment on above: Performed By: #### C OV19 #### [facility] [address] [place] [id number] Office Visit (Internal Medic ine)on 01-06-2020 Follow-up visit Diagnoses/Problems Assessed Flu-like symptoms (780.99) (R68.89) Contact with and (suspected) exposure to other viral communicable diseases (V01.79) (Z20.828) Orders Contact with and (suspected) exposure to other viral communicable diseases, Flu-like symptoms Coronavirus 2019 RNA by PCR, Symptomatic; Status:Active; Requested for:06Jan2020; Perform:Lab Services - Lab To Draw (Non-Blood Test); Due:[id number];Ordered; For:Contact with and (suspected) exposure to other [...] Cigarette smoker; LISA = N; Sent To: [facility] 7008 Patient Discussion/Summary F/U BEFORE PER REQUEST WILL CALL SATURDAY FOR COVID RESULTS Provider Impressions SCHEDULED FOR [facility] COVID-19 TESTING. INSTRUCTED TO SELF QUARANTINE [...] ON Saturday01/04/20. SHE HAS TEST[place] NE[place] [facility] [place]--C/O SINUS CONGESTION/RUNNY NOSE, FATIGUE, LOSS [...] COMPLIANCEon 12-28-2019 6-ACETYLMORPHINE <25 Normal Cutoff <25 [facility] Comment on above: Performed By: #### C BCDF #### [place] [address] CODEINE <50 Normal Cutoff <50 [facility] Comment on above: Performed By: #### C BCDF #### [place] [id number] EDDP,U <25 Normal Cutoff <25 [facility] Comment on above: Result [...] testing. Performed By: #### C BCDF #### [place] [address] FENTANYL CONFIRM,U <2.5 Normal Cutoff<2.5 [facility] Comment on above: Performed By: #### C BCDF #### [place] [address] HYDROCODONE <25 Normal Cutoff <25 [facility] Comment on above: Performed By: #### C BCDF #### [place] [address] METHADONE,U <25 Normal Cutoff <25 [facility] Comment on above: Performed By: #### C BCDF #### [place] [address] NORFENTANYL CONFIRM,U <2.5 Normal Cutoff<2.5 [facility] Comment on above: Result Comment: The [...] testing. Performed By: #### C BCDF #### [place] [address] NOROXYCODONE <25 Normal Cutoff <25 [facility] Comment on above: Performed By: #### C BCDF #### [place] [address] O-DESMETHYLTRAMADOL,U <50 Normal Cutoff <50 [facility] Comment on above: Result Comment: The [...] testing. Performed By: #### C BCDF #### [place] [address] OXYCODONE <25 Normal Cutoff <25 [facility] Comment on above: Performed By: #### C BCDF #### [place] [address] OXYMORPHONE <25 Normal Cutoff <25 [facility] Comment on above: Result [...] testing. Performed By: #### C BCDF #### [place] [address] TRAMADOL CONFIRM,U <50 Normal Cutoff <50 [facility] Comment on above: Performed By: #### C BCDF #### [place] [address] ZOLPIDEM METABOLITE[ZCA] ,U <25 Normal Cutoff <25 [facility] Comment on above: Result [...] testing. Performed By: #### C BCDF #### [place] [address] ZOLPIDEM,URINE <25 Normal Cutoff <25 [facility] Comment on above: Performed By: #### C BCDF #### [place] [address] 7-AMINOCLONAZEPAM <25 Normal Cutoff <25 [facility] Comment on above: Performed By: #### C BCDF #### [place] [address] ALPHA-HYDROXYALPRAZOL AM <25 Normal Cutoff <25 [facility] Comment on above: Performed By: #### C BCDF #### [address] [address] ALPHA-HYDROXYMIDAZOLA M <25 Normal Cutoff <25 [facility] Comment on above: Performed By: #### C BCDF #### [place] [address] ALPRAZOLAM <25 Normal Cutoff <25 [facility] Comment on above: Performed By: #### C BCDF #### [place] [address] CHLORDIAZEPOXIDE <25 Normal Cutoff <25 [facility] Comment on above: Performed By: #### C BCDF #### [place] [address] CLONAZEPAM <25 Normal Cutoff <25 [facility] Comment on above: Performed By: #### C BCDF #### [place] [address] DIAZEPAM <25 Normal Cutoff <25 [facility] Comment on above: Performed By: #### C BCDF #### [place] [address] HYDROMORPHONE <25 Normal Cutoff <25 [facility] Comment on above: Performed By: #### C BCDF #### [place] [address] LORAZEPAM <25 Normal Cutoff <25 [facility] Comment on above: Performed By: #### C BCDF #### [place] [address] MIDAZOLAM <25 Normal Cutoff <25 [facility] Comment on above: Performed By: #### C BCDF #### [place] [address] MORPHINE <50 Normal Cutoff <50 [facility] Comment on above: Performed By: #### C BCDF #### [place] [address] NORDIAZEPAM <25 Normal Cutoff <25 [facility] Comment on above: Performed By: #### C BCDF #### [place] [address] NORHYDROCODONE <25 Normal Cutoff <25 [facility] Comment on above: Performed By: #### C BCDF #### [place] [address] OXAZEPAM <25 Normal Cutoff <25 [facility] Comment on above: Performed By: #### C BCDF #### [place] [address] TEMAZEPAM <25 Normal Cutoff <25 [facility] Comment on above: Result [...] testing. Performed By: #### C BCDF #### [place] [address] OPIATE/OPIOID/BENZO EXTENDED PRESCRIPTION COMPLIANCEon 12-24-2019 Specific gravity (U) [Rel density] 1.0060 Normal Valid 1.0020-1.020 0 [facility] Comment on above: Performed By: #### C BCDF #### [place] [address] AMPHETAMINE SCREEN,U Negative Normal NEGATIVE [facility] Comment on above: Result Comment: CUTO FF LEVEL: 500 NG/ML Cross-reactivity has been reported with high concentrations of the following drugs: buproprion, chloroquine, chlorpromazine, ephedrine, mephentermine, fenfluramine, phentermine, phenylpropanolamine, pseudoephedrine, and propranolol. Performed By: #### C BCDF #### [place] [address] BARBITURATES SCREEN,U Negative Normal NEGATIVE [facility] Comment on above: Result Comment: CUTO FF LEVEL: 200 NG/ML Performed By: #### C BCDF #### [place] [address] CANNABINOIDS SCREEN,U Negative Normal NEGATIVE [facility] Comment on above: Result Comment: CUTO FF LEVEL: 50 NG/ML Performed By: #### C BCDF #### [place] [address] COCAINE METABOLITE SCREEN,U Negative Normal NEGATIVE [facility] Comment on above: Result Comment: CUTO FF LEVEL: 150 NG/ML Performed By: #### C BCDF #### [place] [address] Creatinine [Mass/Vol] 19.9 mg/dL Abnormal [facility] Comment on above: Result Comment: A ur ine creatinine result >= 20 mg/dL is considered valid without suspicion of dilution. Samples with results below this range will automatically reflex to specific gravity testing to verify specimen integrity. Performed By: #### C BCDF #### [place] [address] DRUG SCREEN COMMENT. SEE BELOW Normal [facility] Comment on above: Result Comment: Drug screen [...] directors. Performed By: #### C BCDF #### [place] [address] PCP SCREEN,U Negative Normal NEGATIVE [facility] Comment on above: Result Comment: CUTO FF LEVEL: 25 NG/ML Cross-reactivity has been reported with dextromethorphan. Performed By: #### C BCDF #### [facility] [address] [place] [address] Office Visit (Internal Medic ine)on 12-23-2019 Follow-up [...] attacks; LISA = N; Verified Transmission to [email or web address]; Msg to Pharmacy: OARRS REVIEWED. VOID SCRIPT 30 DAYS AFTER WRITTEN DATE.; Last Updated By: [email or web address]; 12/23/2019 11:38:29 AM Medication management OPIATE/OPIOID/BENZO [EXTENDED] PRESCRIPTION COMPLIANCE; Status:Active - Retrospective Authorization; Requested for:23Dec2019; Perform:Lab Services - Lab To Draw (Non-Blood Test); Due:28Dec2019; Last Updated By:Debra Bland; 12/23/2019 10:15:01 AM;Ordered; For:Medication management; Ordered By:Nini Wolf; CONTROLLED MEDICATION AGREEMENT ; every 1 year; Next 22Dec2020; Status:Active For: 'Medication management'Ordered By: 'PRIMARY ASHL03 RN1, [id number]' URINE DRUG TOXICOLOGY ; every 1 year; Next 22Dec2020; Status:Active For: 'Medication management'Ordered By: 'PRIMARY ASHL03 RN1, [id number]' Restless legs syndrome Renew: Gabapentin 400 MG Oral Capsule; TAKE 1 CAPSULE 4 TIMES DAILY Rx By: Nini Wolf; Dispense: 30 Days ; #:120 Capsule; Refill: 2;For: Restless legs syndrome; LISA = N; Verified Transmission to [email or web address]; Msg to Pharmacy: OARRS REVIEWED. VOID SCRIPT AND REFILLS 90 DAYS AFTER PRESCRIBING DATE.; Last Updated By: [email or web address]; 12/23/2019 11:38:38 AM Patient Discussion/Summary F/U 3 [...] of str (more content not included)... Normal [facility] Visit (Internal Medic ine)on [...] attacks; LISA = N; Verified Transmission to [facility]; Msg to Pharmacy: OARRS REVIEWED. VOID SCRIPT 30 DAYS AFTER WRITTEN DATE. DO NOT FILL UNTIL 11/21/2019; Last Updated By: [email or web address]; 11/03/2019 1:42:47 PM Restless legs syndrome Renew: Gabapentin 400 MG Oral Capsule; TAKE 1 CAPSULE 3 TIMES DAILY Rx By: Nini Wolf; Dispense: 30 Days ; #:90 Capsule; Refill: 2;For: Restless legs syndrome; LISA = N; [facility]; Msg to Pharmacy: OARRS REVIEWED. VOID SCRIPT AND REFILLS 90 DAYS AFTER PRESCRIBING DATE. DO NOT FILL UNTIL 11/08/2019; Last Updated By: [email or web address]; 11/03/2019 1:43:02 PM Patient Discussion/Summary F/U FIRST [...] causing COVID-19 illness, and in accordance with [facility] guidelines which encourage social distancing, I have [...] A WAITING LIST TO SEE PSYCH IN [place], [place]. DUE FOR GABAPENTIN REFILL SOON. History [...] no numbness, (more content not included)... Normal [facility] Office Visit (Internal Medic ine)on 10-23-2019 Follow-up [...] panic attacks; LISA = N; [facility]; Msg to Pharmacy: OARRS REVIEWED. VOID SCRIPT 30 DAYS AFTER WRITTEN DATE; Last Updated By: [facility], [facility]; 10/23/2019 12:31:10 PM Patient Discussion/Summary F/U BEFORE [...] causing COVID-19 illness, and in accordance with [facility] guidelines which encourage social distancing, I have [...] (305.53) (Z87 (more content not included)... Normal [employer] Office Visit (Internal Medic ine)on 10-13-2019 Follow-up visit Diagnoses/Problems Assessed Bipolar depression (296.50) (F31.9) Hospital discharge follow-up (V67.59) (Z09) Generalized anxiety disorder with panic attacks (300.02,300.01) (F41.1,F41.0) Orders Bipolar depression Renew: ARIPiprazole 20 MG Oral Tablet; TAKE 1 TABLET DAILY Rx By: Nini Wolf; Dispense: 90 Days ; #:90 Tablet; Refill: 0;For: Bipolar depression; LISA = N; Verified Transmission to [email or web address]; Last Updated By: [email or web address]; 10/13/2019 1:15:20 PM Bipolar depression, Generalized anxiety disorder with panic attacks Adult Psychiatry Referral Evaluation and Treatment Evaluate AND Treat Status: Hold For - Scheduling Requested for: 13Oct2019 Ordered;For: Bipolar depression, Generalized anxiety disorder with panic attacks; Ordered By: Nini Wofl Performed: Order Comments: NEL CHAVIS NP. KARTIK CASTELLON Due: 11Jan2020 Generalized anxiety disorder with panic attacks Start: clonazePAM 0.25 MG Oral Tablet Disintegrating; PLACE 1 TABLET ON TONGUE AND ALLOW TO DISSOLVE TWICE DAILY NEEDED Rx By: Nini Wolf; Dispense: 15 Days ; #:30 Tablet; Refill: 0;For: Generalized anxiety disorder with panic attacks; LISA = N; Verified Transmission to [email or web address]; Msg to Pharmacy: OARRS REVIEWED. VOID SCRIPT 30 DAYS AFTER WRITTEN DATE. AVOID ALCOHOL WITH USAGE; Last Updated By: [email or web address]; 10/13/2019 1:14:11 PM Patient Discussion/Summary F/U 3 [...] , for a telehealth visit. [place]IRITUAL VISIT; [facility] [place]-ANXIETY; C/O HAVING PANIC ATTACKS X 3 A WEEK-SHE ISN'T WANTING TO LEAVE HER HOUSE ANYMORE. History of Present IllnessVIRTUAL APPOINTMENT BEING PERFORMED DUE TO COVID-19 (CORONAVIRUS) Presents today for KARTIK SAGE F/U FOR ANXIETY/PANIC ATTACK. C/O INCREASED ANXIETY X 2 MONTHS modifying factors consists of WAS KEPT OVER NIGHT FOR OBSERVATION. 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 STATES SHE HAS A 3 MONTH [...] and pigmentat (more content not included)... Normal [employer] Office Visit (Internal Medic ine)on 09-08-2019 Follow-up visit Diagnoses/Problems Assessed Encounter for screening for other viral diseases (V73.89) (Z11.59) Flu-like symptoms (780.99) (R68.89) Contact with and (suspected) exposure to other viral communicable diseases (V01.79) (Z20.828) Patient Discussion/Summary F/U BEFORE Provider Impressions SCHEDULED FOR [facility] COVID-19 TESTING TODAY AT 1100. INSTRUCTED [...] WAS SENT HOME FROM WORK. WORKS AT [employer] IN [place] AND THEY REFUSE TO LET HER BACK [...] ReconstitutedINJECT INTRAMUSCULARLY DIRECTED. Vitals Vital Signs Recorded: [id number] 08:08AM Fall Screeninga) No falls within the [...] Bipolar depression; LISA = N; Sent To: [facility] Patient Discussion/Summary F/U AROUND November OR A [...] Bipolar depression; LISA = N; Sent To: [facility]; Last Updated By: [employer]; 08/13/2019 9:21:58 AM Generalized anxiety disorder with panic attacks Renew: busPIRone HCl - 10 MG Oral Tablet; TAKE 2 TABLETS TWICE DAILY Rx By: Nini Wolf; Dispense: 90 Days ; #:360 Tablet; Refill: 0;For: Generalized anxiety disorder with panic attacks; LISA = N; Sent To: [email or web address] Restless legs syndrome Renew: Gabapentin 400 MG Oral Capsule; TAKE 1 CAPSULE 3 TIMES DAILY Rx By: Nini Wolf; Dispense: 30 Days ; #:90 Capsule; Refill: 2;For: Restless legs syndrome; LISA = N; Sent To: [email or web address]; Msg to Pharmacy: OARRS REVIEWED. 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 Normal [facility] [employer] Clinical Summary-RTFon 06-21 Clinical Summary-RTF Clinical Summary Patient Details for LYLE BAILEY Preferred Name Female Sex [id number] [place], [address] Address [place] 1990 Born White Race Non- or [...] To Be Done: 22 Jun 2019 ? Goziw-0-Kbiuiwxbxwt, Serum; To Be Done: 22 Jun 2019 [...] (Blood Test); Due:20Sep2019;Ordered; For:Hepatitis-C; Ordered By:Nathan Barlow; Bmlfr-9-[id number], Serum; Specimen Source:Blood (BLD); Status:Active; Requested for:22Jun2019; [...] Liver; Status:Hold For - Scheduling; Requested for:22Jun2019; Perform:[facility]; Due:20Sep2019;Ordered; For:Hepatitis-C; Ordered By:Nathan [...] of hepatitis C and ways to Normal [employer] Office Visit (Internal Medic ine)on 06-10-2019 Follow-up [...] depression; LISA = N; Verified Transmission to [facility]; Last Updated By: [employer]; 05/20/2019 4:28:24 PM Medication management CONTROLLED MEDICATION AGREEMENT ; every 1 year; Next 16Jan2020; Status:Active For: 'Medication management'Ordered By: 'PRIMARY ASHL03 RN1, [id number]' URINE DRUG TOXICOLOGY ; every 1 year; Next 18Feb2020; Status:Active For: 'Medication management'Ordered By: 'PRIMARY ASHL03 RN1, [id number]' Restless legs syndrome Renew: Gabapentin 400 MG Oral Capsule; TAKE 1 CAPSULE 3 TIMES DAILY Rx By: Nini Wolf; Dispense: 30 Days ; #:90 Capsule; Refill: 2; For: Restless legs syndrome; LISA = N; Verified Transmission to [facility]; Msg to Pharmacy: OARRS REVIEWED. VOID SCRIPT AND REFILLS 90 DAYS AFTER PRESCRIBING DATE; Last Updated By: [email or web address]; 05/20/2019 4:28:25 PM SocHx: Cigarette smoker Start: Albuterol Sulfate HFA 108 (90 Base) MCG/ACT Inhalation Aerosol Solution; INHALE 2 PUFFS Every 6 hours PRN SOB/WHEEZING Rx By: Nini Wolf; Dispense: 30 Days ; #:1 X 6.7 GM Inhaler; Refill: 5; For: SocHx: Cigarette smoker; LISA = N; Verified Transmission to [facility]; Last Updated By: [email or web address]; 05/20/2019 4:28:23 PM Tobacco Use Screening; Status:Complete; Done: 20May2019 Perform:Not Applicable;Ordered; For:SocHx: Cigarette smoker; Ordered By:Nini Wolf; Start: Chantix 1 MG Oral Tablet; Take 1 tablet twice daily Rx By: Nini Wolf; Dispense: 30 Days ; #:60 Tablet; Refill: 4; For: SocHx: Cigarette smoker; LISA = N; Verified Transmission to [facility]; Msg to Pharmacy: TO START AFTER STARTER PACK; Last Updated By: [employer]; 05/20/2019 4:28:22 PM Start: Chantix Starting Month Lewis 0.5 MG X 11 AND 1 MG X 42 Oral Tablet; TAKE DIRECTED PER PACKAGE INSTRUCTIONS Rx By: Nini Wolf; Dispense: 0 Days ; #:1 X 53 Tablet Pack; Refill: 0; For: SocHx: Cigarette smoker; LISA = N; Verified Transmission to [facility]; Last Updated By: [email or web address]; 05/20/2019 4:28:24 PM Patient Discussion/Summary F/U 3 MONTHS GABAPENTIN REFILL Provider Impressions In light of the current pandemic related to Coronavirus causing COVID-19 illness, and in accordance with [facility] guidelines which encourage social distancing, I have [...] spent 10 (more content not included)... Normal [employer] Metabolic Panelon 02-17-2019 Creatinine [Mass/Vol] 88.3 mg/dL [facility] Work Phone: Comment on above: A urine creatinine r esult >= 20 mg/dL is considered valid without suspicion of dilution. Samples with results below this range will automatically reflex to specific gravity testing to verify specimen integrity. Otheron 02-17-2019 1-Hydroxymidazolam Confirm (U) [Mass/Vol] <25 Cutoff <25 [facility] Work Phone: 6-Wiygnlsvkh-0,5-Dime thyl-3,3-Diphenylpyrr olidine (EDDP) Confirm (U) [Mass/Vol] <25 Cutoff <25 [facility] Work Phone: [...] (6-JACLYN) Confirm (U) [Mass/Vol] <25 Cutoff <25 [facility] Work Phone: 7-Aminoclonazepam Confirm (U) [Mass/Vol] <25 Cutoff <25 [facility] Internal [facility] Work Phone: Alpha hydroxyalprazolam Confirm (U) [Mass/Vol] <25 Cutoff <25 [facility] Work Phone: Alprazolam Confirm (U) [Mass/Vol] <25 Cutoff <25 [facility] Work Phone: Amphetamines Screen Ql (U) Negative NEGATIVE [facility] Work Phone: Comment on above: CUTOFF LEVEL: 500 NG /ML Cross-reactivity has been reported with high concentrations of the following drugs: buproprion, chloroquine, chlorpromazine, ephedrine, mephentermine, fenfluramine, phentermine, phenylpropanolamine, pseudoephedrine, and propranolol. Benzoylecgonine Screen Ql (U) Negative NEGATIVE [facility] Work Phone: Comment on above: CUTOFF LEVEL: 150 NG /ML Chlordiazepoxide Confirm (U) [Mass/Vol] <25 Cutoff <25 [facility] Work Phone: Clonazepam Confirm (U) [Mass/Vol] <25 Cutoff <25 [facility] Work Phone: Codeine Confirm (U) [Mass/Vol] <25 Cutoff <25 [facility] Work Phone: Diazepam Confirm (U) [Mass/Vol] <25 Cutoff <25 [facility] Work Phone: Fentanyl Confirm (U) [Mass/Vol] <2.5 Cutoff<2.5 [facility] Work Phone: Hydrocodone Confirm (U) [Mass/Vol] <25 Cutoff <25 [facility] Work Phone: Hydromorphone Confirm (U) [Mass/Vol] <25 Cutoff <25 [facility] Work Phone: Lorazepam Confirm (U) [Mass/Vol] <25 Cutoff <25 [facility] Work Phone: Methadone Confirm (U) [Mass/Vol] <25 Cutoff <25 [facility] Work Phone: Midazolam Confirm (U) [Mass/Vol] <25 Cutoff <25 [facility] Work Phone: Morphine Confirm (U) [Mass/Vol] <25 Cutoff <25 [facility] Work Phone: Nordiazepam Confirm (U) [Mass/Vol] <25 Cutoff <25 [facility] Work Phone: Norfentanyl Confirm (U) [Mass/Vol] <2.5 Cutoff<2.5 [facility] Work Phone: Comment on above: The performance [...] Norhydrocodone Confirm (U) [Mass/Vol] <25 Cutoff <25 [facility] Work Phone: Noroxycodone Confirm (U) [Mass/Vol] <25 Cutoff <25 [facility] Work Phone: Nortramadol (U) [Mass/Vol] <25 Cutoff <25 [facility] Work Phone: Comment on above: The performance [...] Oxazepam Confirm (U) [Mass/Vol] <25 Cutoff <25 [facility] Work Phone: Oxycodone Confirm (U) [Mass/Vol] <25 Cutoff <25 [facility] Work Phone: Oxymorphone Confirm (U) [Mass/Vol] <25 Cutoff <25 [facility] Work Phone: Comment on above: [...] Temazepam Confirm (U) [Mass/Vol] <25 Cutoff <25 [facility] Work Phone: Comment on above: [...] Tramadol Confirm (U) [Mass/Vol] <25 Cutoff <25 [facility] Work Phone: Zolpidem (U) [Mass/Vol] <25 Cutoff <25 [facility] Work Phone: SEE BELOW [facility] Internal [facility] Work Phone: Comment on above: Drug screen [...] the laboratory medical directors. <25 Cutoff <25 [facility] Work Phone: Comment on above: [...] 02-17-2019 Barbiturates Screen Ql (U) Negative NEGATIVE [facility] Work Phone: Comment on above: CUTOFF LEVEL: 200 NG /ML Cannabinoids Screen Ql (U) Negative NEGATIVE [facility] Work Phone: Comment on above: CUTOFF LEVEL: 50 NG/ ML Phencyclidine Ql (U) Negative NEGATIVE [facility] Work Phone: Comment on above: CUTOFF LEVEL: 25 NG/ ML Cross-reactivity has been reported with dextromethorphan. Auto Diffon 11-14-2018 Basophils (Bld) [#/Vol] 0.1 E3/mcL Normal 0.0-0.2 [facility] Comment on above: Order Comment: Order Added by Discern Expert. Performed By: #### 2 [id number] #### [facility] [address] [place] [address] Basophils/100 WBC (Bld) 1.0 % Normal 0.0-2.0 [facility] Comment on above: Order Comment: Order Added by Discern Expert. Performed By: #### 2 [id number] #### [facility] [address] [place] [address] Eos Absolute 0.1 E3/mcL Normal 0.0-0.7 [facility] Comment on above: Order Comment: Order Added by Discern Expert. Performed By: #### 2 [id number] #### [facility] [address] [place] [address] Eosinophils/100 WBC (Bld) 1.2 % Normal 0.0-11.0 [facility] Comment on above: Order Comment: Order Added by Discern Expert. Performed By: #### 2 [id number] #### [facility] [address] [place] [address] Lymphocytes (Bld) [#/Vol] 3.2 E3/mcL Normal 1.2-3.4 [facility] Comment on above: Order Comment: Order Added by Discern Expert. Performed By: #### 2 [id number] #### [facility] [address] [place] [address] Lymphocytes/100 WBC (Bld) 36.5 % Normal 20.0-55.0 [facility] Comment on above: Order Comment: Order Added by Discern Expert. Performed By: #### 2 [id number] #### [facility] [address] [place] [address] [place] Absolute 0.5 E3/mcL Normal 0.0-0.7 [facility] Comment on above: Order Comment: Order Added by Discern Expert. Performed By: #### 2 [id number] #### [facility] [address] [place] [address] Monocytes/100 WBC (Bld) 5.7 % Normal 0.0-10.0 [facility] Comment on above: Order Comment: Order Added by Discern Expert. Performed By: #### 2 [id number] #### [facility] [address] [place] [address] Neutro Absolute 4.9 E3/mcL Normal 1.4-6.5 [facility] Comment on above: Order Comment: Order Added by Discern Expert. Performed By: #### 2 [id number] #### [facility] [address] [place] [address] Neutro Auto 55.6 % Normal 37.0-75.0 [facility] Comment on above: Order Comment: Order Added by Discern Expert. Performed By: #### 2 [id number] #### [facility] [address] [place] [address] CG Qualon 11-14-2018 Beta hCG Ql Negative Normal Negative [facility] Comment on above: Performed By: #### 2 [id number] #### [facility] Chemistry Manual Subsection [address] [place] [address] CBC w/ Auto Diffon Erythrocyte distribution width (RBC) [Ratio] 14.5 % Normal 11.5-14.5 [facility] Comment on above: Performed By: #### 2 [id number] #### [facility] [address] [place] [address] Hematocrit (Bld) [Volume fraction] 44.6 % Normal 36.0-48.0 [facility] Comment on above: Performed By: #### 2 [id number] #### [facility] [place] [address] Hemoglobin (Bld) [Mass/Vol] 15.3 g/dL Normal 12.0-16.0 [facility] Comment on above: Performed By: #### 2 [id number] #### [facility] [place] [id number] MCH (RBC) [Entitic mass] 31.3 pg High 27.0-31.0 [facility] Comment on above: Performed By: #### 2 643198 #### [facility] [place] [address] MCHC (RBC) [Mass/Vol] 34.2 g/dL Normal 33.0-37.0 [facility] Comment on above: Performed By: #### 2 975665 #### [facility] [address] [place] [address] MCV (RBC) [Entitic vol] 91.4 fL Normal 78.0-100.0 [facility] Comment on above: Performed By: #### 2 [id number] #### [facility] [address] [place] [address] Platelet mean volume (Bld) [Entitic vol] 8.4 fL Normal 7.4-11.0 [facility] Comment on above: Performed By: #### 2 [id number] #### [facility] [address] [place] [address] Platelets (Bld) [#/Vol] 285 E3/mcL Normal 130-400 [facility] Comment on above: Performed By: #### 2 [id number] #### [facility] [address] [place] [address] RBC (Bld) [#/Vol] 4.88 E6/mcL Normal 3.90-5.40 [facility] Comment on above: Performed By: #### 2 [id number] #### [facility] [address] [place] [address] WBC (Bld) [#/Vol] 8.8 E3/mcL Normal 3.6-11.0 [facility] Comment on above: Performed By: #### 2 [id number] #### [facility] [address] [place] [address] CMPon 11-14-2018 Albumin [Mass/Vol] 4.4 g/dL Normal 3.4-5.0 [facility] Comment on above: Performed By: #### 2 103009 #### [facility] [address] [place] [address] Albumin/Globulin [Mass ratio] 1.3 {ratio} Normal 1.1-1.9 [facility] Comment on above: Performed By: #### 2 936789 #### [facility] [address] [place] [address] Alk Phos 82 Int._Unit/L Normal 33-110 [facility] Comment on above: Performed By: #### 2 588352 #### [facility] [address] [place] [address] ALT [Catalytic activity/Vol] 41 Int._Unit/L Normal 7-45 [facility] Comment on above: Performed By: #### 2 993057 #### [facility] [address] [place] [address] Anion gap [Moles/Vol] 14 mmol/L Normal 10-20 [facility] Comment on above: Performed By: #### 2 846956 #### [facility] [address] [place] [address] AST [Catalytic activity/Vol] 51 Int._Unit/L High 9-39 [facility] Comment on above: Performed By: #### 2 920043 #### [facility] [address] [place] [address] Bili Total 0.31 mg/dL Normal 0.00-1.20 [facility] Comment on above: Performed By: #### 2 530410 #### [facility] [address] [place] [address] Calcium [Mass/Vol] 8.9 mg/dL Normal 8.6-10.3 [facility] Comment on above: Performed By: #### 2 [id number] #### [facility] [address] [place] [address] Chloride [Moles/Vol] 107 mmol/L Normal 98-107 [facility] Comment on above: Performed By: #### 2 895193 #### [facility] [address] [place] [address] CO2 [Moles/Vol] 22.0 mmol/L Normal 21.0-32.0 [facility] Comment on above: Performed By: #### 2 033389 #### [facility] [address] [place] [address] Creatinine [Mass/Vol] 0.8 mg/dL Normal 0.5-1.1 [facility] Comment on above: Performed By: #### 2 [id number] #### [facility] [address] [place] [address] Globulin (S) [Mass/Vol] 3.0 g/dL Normal 2.0-4.0 [facility] Comment on above: Performed By: #### 2 [id number] #### [facility] [address] [place] [address] Glucose [Mass/Vol] 82 mg/dL Normal 70-99 [facility] Comment on above: Performed By: #### 2 960858 #### [facility] [address] [place] [address] Potassium [Moles/Vol] 4.0 mmol/L Normal 3.5-5.3 [facility] Comment on above: Performed By: #### 2 635958 #### [facility] [address] [place] [address] Protein [Mass/Vol] 7.7 g/dL Normal 6.4-8.2 [facility] Comment on above: Performed By: #### 2 973209 #### [facility] [address] [place] [address] Sodium [Moles/Vol] 139 mmol/L Normal 136-145 [facility] Comment on above: Performed By: #### 2 782203 #### [facility] [address] [place] [address] Urea nitrogen [Mass/Vol] 8 mg/dL Normal 6-23 [facility] Comment on above: Performed By: #### 2 276758 #### [facility] [address] [place] [address] Urea nitrogen/Creatinine [Mass ratio] 10.0 ratio Normal 5.4-30.0 [facility] Comment on above: Performed By: #### 2 [id number] #### [facility] [address] [place] [address] Ethanolon 11-14-2018 Ethanol [Mass/Vol] 151 mg/dL Critically abnormal <=10 [facility] Comment on above: Result Comment: Crit ical Result (s) Called to and read back by: JEFFREY ROBISON at: 11/13/2018 23:04:17 by:KEEGAN Performed By: #### 2 [id number] #### [facility] [address] [place] [address] Magnesiumon 11-14-2018 Magnesium [Mass/Vol] 2.3 mg/dL Normal 1.6-2.4 [facility] Comment on above: Performed By: #### 2 [id number] #### [facility] [address] [place] [address] U Drug Screenon 11-14-2018 U Amph Scr Negative Normal Negative [facility] Comment on above: Performed By: #### 2 963167 #### [facility] [address] [place] [address] U Janell Scr Negative Normal Negative [facility] Comment on above: Performed By: #### 2 029305 #### [facility] [address] [place] [address] U Benzodia Scr Negative Normal Negative [facility] Comment on above: Performed By: #### 2 [id number] #### FABBY Rem[employer] [address] [place] [address] U Cannab Scr Negative Normal Negative [facility] Comment on above: Performed By: #### 2 [id number] #### FABBY [employer] [address] [place] [address] U Cocaine Scr Negative Normal Negative [facility] Comment on above: Performed By: #### 2 [id number] #### FABBY [employer] [address] [place] [address] U Opiate Scr Negative Normal Negative [facility] Comment on above: Performed By: #### 2 [id number] #### FABBY [employer] [address] [place] [address] U PCP Scr Negative Normal Negative [facility] Comment on above: Performed By: #### 2 [id number] #### FABBY [employer] [address] [place] [address] UA Completeon 11-14-2018 Color (U) Yellow Normal Yellow [facility] Comment on above: Performed By: #### 8 [id number] #### FABBY Urinalysis Automated Subsection [address] [place] [address] Glucose (U) [Mass/Vol] Negative Normal Negative [facility] Comment on above: Performed By: #### 8 [id number] #### FABBY Urinalysis Automated Subsection [address] [place] [address] Ketones Ql (U) Negative Normal Negative [facility] Comment on above: Performed By: #### 8 [id number] #### FABBY Urinalysis Automated Subsection [address] [place] [address] RBC (U) [#/Vol] 0-3 Normal 0-3 [facility] Comment on above: Performed By: #### 8 [id number] #### FABBY Urinalysis Automated Subsection [address] [place] [address] UA Blood Negative Normal Negative [facility] Comment on above: Performed By: #### 8 [id number] #### FABBY Urinalysis Automated Subsection [facility] [place] [address] UA Bacteria 1+ /HPF Abnormal None [facility] Comment on above: Performed By: #### 8 [id number] #### FABBY Urinalysis Automated Subsection [facility] [place] [address] UA Clarity SltCloudy Abnormal Clear [facility] Comment on above: Performed By: #### 8 [id number] #### FABBY Urinalysis Automated Subsection [facility] [place] [address] UA Leuk Est Negative Normal Negative [facility] Comment on above: Performed By: #### 8 [id number] #### FABBY Urinalysis Automated Subsection [address] [place] [address] UA Mucous Occasional Abnormal Trace [facility] Comment on above: Performed By: #### 8 [id number] #### FABBY Urinalysis Automated Subsection [address] [place] [address] UA Nitrite Negative Normal Negative [facility] Comment on above: Performed By: #### 8 [id number] #### FABBY Urinalysis Automated Subsection [address] [place] [address] UA pH 6.0 Normal 4.6-8.0 [facility] Comment on above: Performed By: #### 8 [id number] #### FABBY Urinalysis Automated Subsection [address] [place] [address] UA Protein Negative Normal Negative [facility] Comment on above: Performed By: #### 8 [id number] #### FABBY Urinalysis Automated Subsection [address] [place] [address] UA Spec Grav 1.009 Normal 1.003-1.030 [facility] Comment on above: Performed By: #### 8 [id number] #### FABBY Urinalysis Automated Subsection [address] [place] [address] UA Squam Epithelial 0-5 Normal 0-5 [facility] Comment on above: Performed By: #### 8 [id number] #### FABBY Urinalysis Automated Subsection [address] [place] [address] UA Urobilinogen Negative Normal [facility] Comment on above: Result Comment: Due to a manufacturing issue, low positive urobilinogen results may be fasely positive. Correlate with urine bilirubin and additional clinical/laboratory findings to assess the risk of hemolytic anemia or liver disease. If clinically indicated, repeat testing with an alternate method is available by contacting the laboratory within 24 hours. Performed By: #### 8 [id number] #### FABBY Urinalysis Automated Subsection [facility] [place] [address] UA WBC 0-5 Normal 0-5 [facility] Comment on above: Performed By: #### 8 [id number] #### FABBY Urinalysis Automated Subsection [facility] [place] [id number] Urobilinogen Qn (U) Negative Normal Negative [facility] Comment on above: Performed By: #### 8 [id number] #### FABBY Urinalysis Automated Subsection [facility] [place] [address] eGFRon 11-14-2018 GFR/1.73 sq M predicted among non-blacks MDRD (S/P/Bld) [Vol rate/Area] mL/min/{1.73_m2} Normal [facility] Comment on above: Order Comment: Order added by Discern Expert. Performed By: #### 1 [id number] #### FABBY [employer] [facility] [place] [address] APTTon 11-01-2018 aPTT Coag (Bld) [Time] 20.7 s [place], [place] Comment on above: PTT Therapeutic Range: 61.7-88.4 Therapeutic range corresponds to plasma heparin levels of 0.3-0.7 U/mL. CBC Auto Differentialon 10-13 Basophils (Bld) [#/Vol] 0.00 10*3/uL [place] Basophils/100 WBC (Bld) 0 % 0 - 2 % [place] Differential Type YES [place], [place] Eosinophils (Bld) [#/Vol] 0.10 10*3/uL [place] Eosinophils/100 WBC (Bld) 1 % 0 - 5 % [place] Erythrocyte distribution width (RBC) [Ratio] 14.4 % 12.1 - 15.2 % [place] Hematocrit (Bld) [Volume fraction] 40.4 % 36 - 46 % [place] Hemoglobin (Bld) [Mass/Vol] 13.6 g/dL 12 - 16 g/dL [place] Interpretation and review of laboratory results Abnormal [place] Lymphocytes (Bld) [#/Vol] 2.50 10*3/uL [place] Lymphocytes/100 WBC (Bld) 23 % 15 - 40 % [place] MCH (RBC) [Entitic mass] 30.6 pg 26 - 34 pg [place] MCHC (RBC) [Mass/Vol] 33.7 g/dL 31 - 37 g/dL M [place] MCV (RBC) [Entitic vol] 90.9 fL 80 - 100 fL [place] Monocytes (Bld) [#/Vol] 0.10 10*3/uL [place] Monocytes/100 WBC (Bld) 1 % Low 4 - 8 % [place] Platelet mean volume (Bld) [Entitic vol] NOT REPORTED 6 - 12 fL [place] Platelets (Bld) [#/Vol] NOT REPORTED [place] Platelets (Bld) [#/Vol] 188 10*3/uL [place] RBC (Bld) [#/Vol] 4.45 10*6/uL 4 - 5.2 m/uL [place] RBC morphology finding Nom (Bld) NOT REPORTED [place] Segmented neutrophils/100 WBC (Bld) 75 % 47 - 75 % [place] Segs Absolute 8.30 [place] WBC (Bld) [#/Vol] 11.0 10*3/uL [place] WBC (Bld) [#/Vol] NOT REPORTED per 100 WBC [place] WBC Morphology NOT REPORTED [place] Comprehensive Metabolic Pane mary beth 11-01-2018 Albumin [Mass/Vol] 4.5 g/dL 3.5 - 5.2 g/dL [place] Albumin/Globulin [Mass ratio] NOT REPORTED [place] ALP [Catalytic activity/Vol] 80 U/L 35 - 104 U/L [place] ALT [Catalytic activity/Vol] 45 U/L High 5 - 33 U/L [place] Anion gap [Moles/Vol] 10 mmol/L 9 - 17 mmol/L [place] AST [Catalytic activity/Vol] 46 U/L High <32 [place] Bilirubin Ql (U) 0.33 mg/dL 0.3 - 1.2 mg/dL [place] Bun/Cre Ratio 18 [place], [place] Calcium [Mass/Vol] 9.7 mg/dL 8.6 - 10. 4 mg/dL [place] Chloride [Moles/Vol] 100 mmol/L 98 - 10 7 mmol/L [place] CO2 [Moles/Vol] 25 mmol/L 20 - 31 mmol/L [place] Creatinine [Mass/Vol] 0.6 mg/dL 0.5 - 0.9 mg/dL [place] GFR >60 >60 mL/min [place] GFR Non- >60 >60 mL/min [place] GFR/1.73 sq M predicted among non-blacks MDRD (S/P/Bld) [Vol rate/Area] [place] Comment on above: Average GFR for 20-2 9 years old: 116 mL/min/1.73sq m Chronic Kidney Disease: <60 mL/min/1.73sq m Kidney failure: <15 mL/min/1.73sq m eGFR calculated using average adult body mass. Additional eGFR calculator available at: http://www.[employer]multiple_crcl_2012.htm GFR/1.73 sq M predicted among non-blacks MDRD (S/P/Bld) [Vol rate/Area] NOT REPORTED [place] Glucose [Mass/Vol] 87 mg/dL 70 - 99 mg/dL [place] Interpretation and review of laboratory results Abnormal [place] Potassium [Moles/Vol] 4.0 mmol/L 3.7 - 5.3 mmol/L [place] Protein [Mass/Vol] 8.2 g/dL 6.4 - 8.3 g/dL [place] Sodium [Moles/Vol] 135 mmol/L 135 - 144 mmol/L [place] Urea nitrogen [Mass/Vol] 11 mg/dL 6 - 20 mg/dL [place] D-dimer, quantitativeon 10-13 D-Dimer, Quant 0.52 [place], [place] Comment on above: Elevated levels of [...] Interpretation and review of laboratory results Abnormal [place] Immature granulocytes (Bld) [#/Vol] NOT REPORTED [place] Protime-INRon 11-01-2018 INR Coag (PPP) [Relative time] 1.0 {INR} [place] Comment on above: * THERAPY INDICATIONS * REFERENCE RANGES Pts not on anti-coagulants 1.0 - 1.5 INR Low risk pts on anti-coagulants 2.0 - 3.0 INR High risk pts on anti-coagulants 2.5 - 3.5 INR Prevention of atrial thrombo-embolism 3.0 - 4.5 INR PT Coag (PPP) [Time] 9.7 s [place] Alcoholon 06-21-2018 Ethanol mass conc 0.165 G/dL Normal Comment on above: Performed By: #### A LCO[facility] #### [address] [place] [address] Ethanol mass conc 188 mg/dL Normal Comment on above: Performed By: #### A LCOH #### [address] [facility] [address] CBC With Platelet and Differ entialon 06-21-2018 Basophils #/vol (Bld) 0.1 10*3/uL Normal 0.0-0.2 [facility] Comment on above: Performed By: #### C BCWD #### [address] [place] [address] Basophils/100 WBC (Bld) 1.0 % Normal Comment on above: Performed By: #### C BCWD #### [address] [place] [address] Eosinophils #/vol (Bld) 0.0 10*3/uL Normal 0.0-0.7 Comment on above: Performed By: #### C BCWD #### [address] [place] [address] Eosinophils/100 WBC (Bld) 0.2 % Normal Comment on above: Performed By: #### C BCWD #### [address] [place] [address] Erythrocyte distribution width Ratio (RBC) 14.6 % Critically high 11.5-14.5 Comment on above: Performed By: #### C BCWD #### [address] [place] [address] Hematocrit Volume Fraction (Bld) 43.0 % Normal 37.0-47.0 Comment on above: Performed By: #### C BCWD #### [address] [place] [address] Hemoglobin mass conc (Bld) 14.6 g/dL Normal 12.0-16.0 Comment on above: Performed By: #### C BCWD #### [address] [place] [address] Lymphocytes #/vol (Bld) 3.7 10*3/uL Normal 1.0-4.8 Comment on above: Performed By: #### C BCWD #### [address] [place] [address] Lymphocytes/100 WBC (Bld) 50.2 % Normal Comment on above: Performed By: #### C BCWD #### [address] [place] [address] MCH Entitic mass (RBC) 30.3 pg Normal 27.0-31.3 Comment on above: Performed By: #### C BCWD #### [address] [place] [address] MCHC mass conc (RBC) 33.9 % Normal 33.0-37.0 [place] Comment on above: Performed By: #### C BCWD #### [address] [place] [address] MCV Entitic volume (RBC) 89.4 fL Normal 82.0-100.0 Comment on above: Performed By: #### C BCWD #### [address] [place] [address] Monocytes #/vol (Bld) 0.3 10*3/uL Normal 0.2-0.8 [facility] Comment on above: Performed By: #### C BCWD #### [address] [place] [address] Monocytes/100 WBC (Bld) 3.5 % Normal Comment on above: Performed By: #### C BCWD #### [address] [place] [address] Neutrophils #/vol (Bld) 3.3 10*3/uL Normal 1.4-6.5 Comment on above: Performed By: #### C BCWD #### [address] [place] [address] Neutrophils/100 WBC (Bld) 45.1 % Normal Comment on above: Performed By: #### C BCWD #### [address] [place] [address] Platelets #/vol (Bld) 253 10*3/uL Normal 130-400 [facility] Comment on above: Performed By: #### C BCWD #### [address] [place] [address] RBC #/vol (Bld) 4.81 10*6/uL Normal 4.20-5.40 Comment on above: Performed By: #### C BCWD #### [address] [place] [address] WBC #/vol (Bld) 7.3 10*3/uL Normal 4.8-10.8 Comment on above: Performed By: #### C BCWD #### [address] [place] [address] Comprehensive Metabolic Pane mary beth 06-21-2018 Albumin mass conc 4.8 g/dL Critically high 3.5-4.6 [facility] Comment on above: Performed By: #### C MP #### [address] [place] [address] ALP enzyme act/vol 76 U/L Normal 40-130 Comment on above: Performed By: #### C MP #### [address] [place] [address] ALT enzyme act/vol 130 U/L Critically high 0-33 M [facility] Comment on above: Performed By: #### C MP #### [address] [place] [address] Anion gap molar conc 18 mmol/L Critically high 9-15 Comment on above: Performed By: #### C MP #### [address] [place] [address] AST enzyme act/vol 86 U/L Critically high 0-35 M [facility] Comment on above: Performed By: #### C MP #### [address] [place] [address] Bilirubin mass conc 0.3 mg/dL Normal 0.2-0.7 Comment on above: Performed By: #### C MP #### [address] [place] [address] Calcium mass conc 8.5 mg/dL Normal 8.5-9.9 Comment on above: Performed By: #### C MP #### [address] [place] [address] Chloride molar conc 105 mmol/L Normal 95-107 Comment on above: Performed By: #### C MP #### [address] [place] [address] CO2 molar conc 23 mmol/L Normal 20-31 Comment on above: Performed By: #### C MP #### [address] [place] [address] Creatinine mass conc 0.61 mg/dL Normal 0.50-0.90 [place] Comment on above: Performed By: #### C MP #### [address] [place] [address] GFR/1.73 sq M predicted among blacks MDRD vol rate/area (S/P/Bld) mL/min/{1.73_m2} Normal >60 Comment on above: Result Comment: >60 mL/min/1.73m2 EGFR, calc. for ages 18 and older using the MDRD formula (not corrected for weight), is valid for stable renal function. Performed By: #### C MP #### [address] [place] [address] GFR/1.73 sq M.predicted MDRD vol rate/area mL/min/{1.73_m2} Normal >60 Comment on above: Result Comment: >60 mL/min/1.73m2 EGFR, calc. for ages 18 and older using the MDRD formula (not corrected for weight), is valid for stable renal function. Performed By: #### C MP #### [address] [place] [address] Globulin mass conc (S) 3.2 g/dL Normal 2.3-3.5 Comment on above: Performed By: #### C MP #### [address] [place] [address] Glucose mass conc 108 mg/dL Critically high 70-99 [facility] Comment on above: Performed By: #### C MP #### [address] [place] [address] Potassium molar conc 3.8 mmol/L Normal 3.4-4.9 [place] Comment on above: Performed By: #### C MP #### [address] [place] [address] Protein mass conc 8.0 g/dL Normal 6.3-8.0 Comment on above: Performed By: #### C MP #### [address] [place] [address] Sodium molar conc 146 mmol/L Critically high 135-144 [facility] Comment on above: Performed By: #### C MP #### [address] [place] [address] Urea nitrogen mass conc 9 mg/dL Normal 6-20 Comment on above: Performed By: #### C MP #### [address] [place] [address] Lactic Acidon 06-21-2018 Lactate molar conc 2.3 mmol/L Critically high 0.5-2.2 [facility] Comment on above: Performed By: #### L ACID #### [address] [place] [address] Troponinon 06-21-2018 Troponin I.cardiac mass conc ng/mL Normal 0.000-0.01 Comment on above: Result Comment: Meth odology by Troponin T. Performed By: #### T ROP #### [address] [place] [address] XR CHEST PORTABLEon 06-22-19 19 XR CHEST PORTABLE Portable chest radiograph History: Drug overdose Technique: AP portable view of the chest obtained. Comparison: None available Findings: The cardiomediastinal silhouette is within normal limits. No pneumothorax, pleural effusion, or focal consolidation. Osseous structures of the thorax appear intact. IMPRESSION: No acute intrathoracic process. Interpreted by: Kane Dos Santos DO Signed by: Kane Dos Santos DO 06/21/18 Final result Normal Vital Signs Date Time Vital Sign Value Performing Clinician Facility 04-28-2024 11:46-0400 Body height 160.02 cm Ari More DO Work Phone: [facility] 04-28-2024 11:46-0400 Body weight 72 kg Ari More DO Work Phone: [facility] 04-28-2024 11:46-0400 Diastolic blood pressure 101 mm[Hg] Ari More DO Work Phone: [facility] 04-28-2024 11:46-0400 Heart rate 109 /min Ari More DO Work Phone: [facility] 04-28-2024 11:46-0400 Respiratory rate 28 /min Ari More DO Work Phone: [facility] 04-28-2024 11:46-0400 SaO2% (BldA) [Mass fraction] 97 % Ari More DO Work Phone: [facility] 04-28-2024 11:46-0400 Systolic blood pressure 135 mm[Hg] Ari More DO Work Phone: [facility] 01-13-2024 11:47-0500 Hourly Rounding Pavel Ortega [facility] 01-13-2024 11:47-0500 Promise to Return Pavel Ortega [facility] 01-13-2024 10:47-0500 Hourly Rounding Pavel Ortega [facility] 01-13-2024 10:47-0500 Promise to Return Pavel Christiansoner [facility] 01-13-2024 09:47-0500 Hourly Rounding Pavel Christiansoner [facility] 01-13-2024 09:47-0500 Promise to Return Pavel Christiansoner [facility] 01-13-2024 08:00-0500 Diastolic blood pressure 109 mm[Hg] Pavel Christiansoner [facility] 01-13-2024 08:00-0500 Heart rate 65 /min Pavel Christiansoner [facility] 01-13-2024 08:00-0500 Mean blood pressure 125 mm[Hg] Pavel Christiansoner [facility] 01-13-2024 08:00-0500 SaO2% (BldA) [Mass fraction] 97 % Pavel Christiansoner [facility] 01-13-2024 08:00-0500 Systolic blood pressure 158 mm[Hg] Pavel Christiansoner [facility] 01-13-2024 05:20-0500 Diastolic blood pressure 87 mm[Hg] Pavel Christiansoner [facility] 01-13-2024 05:20-0500 Heart rate 78 /min Pavel Christiansoner [facility] 01-13-2024 05:20-0500 Systolic blood pressure 152 mm[Hg] Pavel Christiansoner [facility] 01-13-2024 00:00-0500 Blood Pressure Location Pavel Christiansoner [facility] 01-13-2024 00:00-0500 Body temperature 98.24 [degF] Pavel Christiansoner [facility] 01-13-2024 00:00-0500 Diastolic blood pressure 84 mm[Hg] Pavel Christiansoner [facility] 01-13-2024 00:00-0500 Mean blood pressure 96 mm[Hg] Pavel Christiansoner [facility] 01-13-2024 00:00-0500 Respiratory rate 15 /min Pavel Mancker [facility] 01-13-2024 00:00-0500 SaO2% (BldA) [Mass fraction] 95 % Pavel Jordan [facility] 01-13-2024 00:00-0500 Systolic blood pressure 121 mm[Hg] Pavel Christiansoner [facility] 01-12-2024 16:21-0500 Heart rate 68 /min Pavel Christiansoner [facility] 01-12-2024 16:21-0500 SaO2% (BldA) [Mass fraction] 97 % Pavel Christiansoner [facility] 01-12-2024 16:21-0500 Body temperature 97.52 [degF] Pavel Christiansoner [facility] 01-12-2024 16:21-0500 Mean blood pressure 137 mm[Hg] Pavel Christiansoner [facility] 01-12-2024 11:00-0500 Heart rate 85 /min Pavel Jordan [facility] 01-12-2024 11:00-0500 Respiratory rate 18 /min Pavel Mancker [facility] 01-12-2024 07:40-0500 Mean blood pressure 105 mm[Hg] Pavel Christiansoner [facility] 01-12-2024 04:00-0500 Heart rate 90 /min Pavel Ortega [facility] 01-12-2024 04:00-0500 Mean blood pressure 109 mm[Hg] Pavel Ortega [facility] 01-11-2024 23:04-0500 Blood Pressure Location Pavel Ortega [facility] 01-11-2024 23:04-0500 Body temperature 98.24 [degF] Pavel Ortega [facility] 01-11-2024 23:04-0500 Heart rate 93 /min Pavel Ortega [facility] 01-11-2024 19:34-0500 Mean blood pressure 103 mm[Hg] Pavel Ortega [facility] 12-30-2023 21:10-0500 Diastolic blood pressure 85 mm[Hg] Birgit Aiken MD Work Phone: [facility] 12-30-2023 21:10-0500 Heart rate 95 /min Birgit Aiken MD Work Phone: [facility] 12-30-2023 21:10-0500 Respiratory rate 20 /min Birgit Aiken MD Work Phone: [facility] 12-30-2023 21:10-0500 SaO2% (BldA) [Mass fraction] 95 % Birgit Aiken MD Work Phone: [facility] 12-30-2023 21:10-0500 Systolic blood pressure 119 mm[Hg] Birgit Aiken MD Work Phone: [facility] 12-30-2023 15:18-0500 Body height 154.94 cm Birgit Aiken MD Work Phone: [facility] 12-30-2023 15:18-0500 Body weight 69.39 kg Birgit Aiken MD Work Phone: [facility] 12-30-2023 15:13-0500 Body temperature 97.4 [degF] Birgit Aiken MD Work Phone: [facility] 12-05-2023 18:00-0400 Diastolic blood pressure 87 mm[Hg] [facility] 12-05-2023 18:00-0400 Heart rate 108 /min [facility] 12-05-2023 18:00-0400 Mean blood pressure 92 mm[Hg] [facility] 12-05-2023 18:00-0400 Respiratory rate 18 /min [facility] 12-05-2023 18:00-0400 SaO2% (BldA) [Mass fraction] 96 % [facility] 12-05-2023 18:00-0400 Systolic blood pressure 102 mm[Hg] [facility] 12-05-2023 17:00-0400 Diastolic blood pressure 73 mm[Hg] [facility] 12-05-2023 17:00-0400 Heart rate 88 /min [facility] 12-05-2023 17:00-0400 Mean blood pressure 81 mm[Hg] [facility] 12-05-2023 17:00-0400 Respiratory rate 17 /min [facility] 12-05-2023 17:00-0400 SaO2% (BldA) [Mass fraction] 95 % [facility] 12-05-2023 17:00-0400 Systolic blood pressure 96 mm[Hg] [facility] 12-05-2023 16:00-0400 Diastolic blood pressure 75 mm[Hg] [facility] 12-05-2023 16:00-0400 Heart rate 101 /min [facility] 12-05-2023 16:00-0400 Mean blood pressure 84 mm[Hg] [facility] 12-05-2023 16:00-0400 Systolic blood pressure 101 mm[Hg] [facility] 12-05-2023 15:45-0400 Heart rate 104 /min [facility] 12-05-2023 15:41-0400 Body temperature 97.7 [degF] [facility] 12-05-2023 15:41-0400 Heart rate 107 /min [facility] 12-05-2023 15:41-0400 Respiratory rate 20 /min [facility] 11-27-2023 17:29-0400 Diastolic blood pressure 75 mm[Hg] Isai Hall [facility] 11-27-2023 17:29-0400 Heart rate 79 /min Isai Rafael [facility] 11-27-2023 17:29-0400 Respiratory rate 16 /min Isai Rafael [facility] 11-27-2023 17:29-0400 SaO2% (BldA) [Mass fraction] 100 % Isai Hall [facility] 11-27-2023 17:29-0400 Systolic blood pressure 117 mm[Hg] Isai Rafael [facility] 11-27-2023 12:30-0400 Heart rate 109 /min Isai Rafael [facility] 11-27-2023 12:30-0400 SaO2% (BldA) [Mass fraction] 99 % Isai Rafael [facility] 11-27-2023 12:00-0400 Diastolic blood pressure 90 mm[Hg] Isai Rafael [facility] 11-27-2023 12:00-0400 Heart rate 99 /min Isai Rafael [facility] 11-27-2023 12:00-0400 Mean blood pressure 96 mm[Hg] Isai Rafael [facility] 11-27-2023 12:00-0400 Respiratory rate 18 /min Isai Rafael [facility] 11-27-2023 12:00-0400 Systolic blood pressure 108 mm[Hg] Isai Rafael [facility] 11-27-2023 10:30-0400 Diastolic blood pressure 86 mm[Hg] Isai [facility] 11-27-2023 10:30-0400 Mean blood pressure 101 mm[Hg] Isai [facility] 11-27-2023 10:30-0400 Respiratory rate 15 /min Isai [facility] 11-27-2023 10:30-0400 Systolic blood pressure 130 mm[Hg] Isai [facility] 11-27-2023 10:03-0400 Body temperature 97.88 [degF] Isai [facility] 11-27-2023 10:03-0400 Heart rate 95 /min Isai [facility] 11-07-2023 09:32-0400 Body height 157.48 cm OCCUPATIONAL THERAPY SPECIALIST Amanda Bernard Work Phone: [facility] 11-07-2023 09:32-0400 Body mass index (BMI) [Ratio] 29.2 kg/m2 OCCUPATIONAL THERAPY SPECIALIST Amanda Robuck Work Phone: [facility] 11-07-2023 09:32-0400 Body weight 72.57 kg OCCUPATIONAL THERAPY SPECIALIST Amanda Robuck Work Phone: [facility] 08-30-2023 01:30-0400 Diastolic blood pressure 102 mm[Hg] Kaylinn Dokken [facility] 08-30-2023 01:30-0400 Heart rate 85 /min Kaylinn Dokken [facility] 08-30-2023 01:30-0400 Mean blood pressure 113 mm[Hg] Kaylinn Dokken [facility] 08-30-2023 01:30-0400 Respiratory rate 18 /min Kaylinn Dokken [facility] 08-30-2023 01:30-0400 SaO2% (BldA) [Mass fraction] 98 % Kaylinn Dokken [facility] 08-30-2023 01:30-0400 Systolic blood pressure 135 mm[Hg] Kaylinn Dokken [facility] 08-30-2023 00:57-0400 Diastolic blood pressure 111 mm[Hg] Kaylinn Dokken [facility] 08-30-2023 00:57-0400 Heart rate 94 /min Kaylinn Dokken [facility] 08-30-2023 00:57-0400 Mean blood pressure 125 mm[Hg] Kaylinn Dokken [facility] 08-30-2023 00:57-0400 Respiratory rate 20 /min Kaylinn Dokken [facility] 08-30-2023 00:57-0400 SaO2% (BldA) [Mass fraction] 97 % Kaylinn Dokken [facility] 08-30-2023 00:57-0400 Systolic blood pressure 154 mm[Hg] Kaylinn Dokken [facility] 08-29-2023 23:14-0400 Diastolic blood pressure 110 mm[Hg] Kaylinn Dokken [facility] 08-29-2023 23:14-0400 Heart rate 84 /min Kaylinn Dokken [facility] 08-29-2023 23:14-0400 Systolic blood pressure 150 mm[Hg] Kaylinn Dokken [facility] 08-29-2023 22:48-0400 Body temperature 97.88 [degF] Kaylinn Dokken [facility] 08-29-2023 22:48-0400 Heart rate 99 /min Kaylinn Dokken [facility] 08-29-2023 22:48-0400 Respiratory rate 20 /min Kaylinn Dokken [facility] 08-29-2023 22:48-0400 SaO2% (BldA) [Mass fraction] 99 % Kaylinn Dokken [facility] 08-10-2023 07:29-0400 Body temperature 97.3 [degF] Diamante Cleveland Work Phone: [facility] 08-10-2023 07:29-0400 Diastolic blood pressure 92 mm[Hg] Diamante Cleveland Work Phone: [facility] 08-10-2023 07:29-0400 Heart rate 68 /min Diamante Cleveland Work Phone: [facility] 08-10-2023 07:29-0400 Respiratory rate 18 /min Diamante Cleveland Work Phone: [facility] 08-10-2023 07:29-0400 SaO2% (BldA) [Mass fraction] 97 % Diamante Cleveland Work Phone: [facility] 08-10-2023 07:29-0400 Systolic blood pressure 125 mm[Hg] Diamante Cleveland Work Phone: [facility] 08-07-2023 14:23-0400 Body height 157.48 cm Diamante Cleveland Work Phone: [facility] 08-06-2023 22:28-0400 Body weight 73.79 kg Diamante Cleveland Work Phone: [facility] 08-06-2023 20:35-0400 Diastolic blood pressure 80 mm[Hg] Eric [facility] 08-06-2023 20:35-0400 Heart rate 106 /min Eric Forbes [facility] 08-06-2023 20:35-0400 Mean blood pressure 92 mm[Hg] Eric Forbes [facility] 08-06-2023 20:35-0400 Respiratory rate 16 /min Eric Forbes [facility] 08-06-2023 20:35-0400 SaO2% (BldA) [Mass fraction] 96 % Eric Forbes [facility] 08-06-2023 20:35-0400 Systolic blood pressure 115 mm[Hg] Eric Benavideze [facility] 08-06-2023 15:52-0400 Body temperature 98.78 [degF] Eric Benavideze [facility] 08-06-2023 15:52-0400 Diastolic blood pressure 88 mm[Hg] Eric Benavideze [facility] 08-06-2023 15:52-0400 Heart rate 104 /min Eric Forbes [facility] 08-06-2023 15:52-0400 Respiratory rate 18 /min Eric Forbes [facility] 08-06-2023 15:52-0400 SaO2% (BldA) [Mass fraction] 95 % Eric Forbes [facility] 08-06-2023 15:52-0400 Systolic blood pressure 130 mm[Hg] Eric Forbes [facility] 07-14-2023 11:01-0400 Blood Pressure Location Mike Turnerpsey [facility] 07-14-2023 11:01-0400 Body temperature 97.34 [degF] Mike Rainer [facility] 07-14-2023 11:01-0400 Diastolic blood pressure 88 mm[Hg] Mike Caceresey [facility] 07-14-2023 11:01-0400 Heart rate 71 /min Mike Rainer [facility] 07-14-2023 11:01-0400 SaO2% (BldA) [Mass fraction] 98 % Mike Rainer [facility] 07-14-2023 11:01-0400 Systolic blood pressure 138 mm[Hg] Mike Spear [facility] 07-05-2023 21:38-0400 Diastolic blood pressure 108 mm[Hg] Isai Hall [facility] 07-05-2023 21:38-0400 Heart rate 90 /min Isai Hall [facility] 07-05-2023 21:38-0400 Mean blood pressure 124 mm[Hg] Isai Hall [facility] 07-05-2023 21:38-0400 Respiratory rate 16 /min Isai Hall [facility] 07-05-2023 21:38-0400 SaO2% (BldA) [Mass fraction] 98 % Isai Hall [facility] 07-05-2023 21:38-0400 Systolic blood pressure 157 mm[Hg] Isai Hall [facility] 07-05-2023 10:38-0400 Body temperature 98.78 [degF] Isai Hall [facility] 07-05-2023 10:38-0400 Diastolic blood pressure 103 mm[Hg] Isai Hall [facility] 07-05-2023 10:38-0400 Heart rate 105 /min Isai Hall [facility] 07-05-2023 10:38-0400 Respiratory rate 20 /min Isai Hall [facility] 07-05-2023 10:38-0400 SaO2% (BldA) [Mass fraction] 97 % Isai Hall [facility] 07-05-2023 10:38-0400 Systolic blood pressure 145 mm[Hg] Isai Hall [facility] 07-03-2023 10:00-0400 Diastolic blood pressure 91 mm[Hg] Kaushik Bridger [facility] 07-03-2023 10:00-0400 Heart rate 85 /min Kaushik Bridger [facility] 07-03-2023 10:00-0400 Mean blood pressure 105 mm[Hg] Kaushik Bridger [facility] 07-03-2023 10:00-0400 Respiratory rate 15 /min Kaushik Bridger [facility] 07-03-2023 10:00-0400 SaO2% (BldA) [Mass fraction] 96 % Kaushik Bridger [facility] 07-03-2023 10:00-0400 Systolic blood pressure 133 mm[Hg] Kaushik Bridger [facility] 07-03-2023 09:00-0400 Diastolic blood pressure 102 mm[Hg] Kaushik Bridger [facility] 07-03-2023 09:00-0400 Heart rate 93 /min Kaushik Bridger [facility] 07-03-2023 09:00-0400 Mean blood pressure 113 mm[Hg] Kaushik Bridger [facility] 07-03-2023 09:00-0400 Systolic blood pressure 135 mm[Hg] Kaushik Bridger [facility] 07-03-2023 08:30-0400 Diastolic blood pressure 94 mm[Hg] Kaushik Bridger [facility] 07-03-2023 08:30-0400 Heart rate 98 /min Kaushik Bridger [facility] 07-03-2023 08:30-0400 Mean blood pressure 107 mm[Hg] Kaushik Bridger [facility] 07-03-2023 08:30-0400 Respiratory rate 12 /min Kaushik Bridger [facility] 07-03-2023 08:30-0400 SaO2% (BldA) [Mass fraction] 97 % Kaushik Bridger [facility] 07-03-2023 08:30-0400 Systolic blood pressure 132 mm[Hg] Kaushik Bridger [facility] 07-03-2023 08:04-0400 gluc 109 mg/dL Kaushik Sparks [facility] 07-03-2023 07:56-0400 Heart rate 101 /min Kaushik Sparks [facility] 07-03-2023 07:31-0400 Body temperature 98.6 [degF] Kaushik Sparks [facility] 07-03-2023 07:31-0400 Heart rate 122 /min Kaushik Sparks [facility] 07-03-2023 07:31-0400 Respiratory rate 18 /min Kaushik Sparks [facility] 06-30-2023 23:42-0400 Blood Pressure Location Isai Hall [facility] 06-30-2023 23:42-0400 Diastolic blood pressure 109 mm[Hg] Isai [facility] 06-30-2023 23:42-0400 Heart rate 113 /min Isai [facility] 06-30-2023 23:42-0400 Mean blood pressure 117 mm[Hg] Isai Hall [facility] 06-30-2023 23:42-0400 Respiratory rate 16 /min Isai [facility] 06-30-2023 23:42-0400 SaO2% (BldA) [Mass fraction] 98 % Isai Hall [facility] 06-30-2023 23:42-0400 Systolic blood pressure 133 mm[Hg] Isai Hall [facility] 06-30-2023 20:47-0400 Blood Pressure Location Isai Hall [facility] 06-30-2023 20:47-0400 Diastolic blood pressure 92 mm[Hg] Isai [facility] 06-30-2023 20:47-0400 Heart rate 113 /min Isai [facility] 06-30-2023 20:47-0400 Mean blood pressure 100 mm[Hg] Isai [facility] 06-30-2023 20:47-0400 Respiratory rate 16 /min Isai [facility] 06-30-2023 20:47-0400 SaO2% (BldA) [Mass fraction] 97 % Isai [facility] 06-30-2023 20:47-0400 Systolic blood pressure 115 mm[Hg] Isai [facility] 06-30-2023 19:46-0400 Respiratory rate 16 /min Isai [facility] 06-30-2023 18:00-0400 Heart rate 82 /min Isai [facility] 06-30-2023 18:00-0400 SaO2% (BldA) [Mass fraction] 94 % Isai [facility] 06-30-2023 16:30-0400 Diastolic blood pressure 105 mm[Hg] Isai [facility] 06-30-2023 16:30-0400 Heart rate 61 /min Isai [facility] 06-30-2023 16:30-0400 Systolic blood pressure 122 mm[Hg] Isai [facility] 06-30-2023 15:30-0400 Heart rate 65 /min Isai [facility] 06-30-2023 13:45-0400 Body temperature 98.6 [degF] Isai [facility] 06-30-2023 13:45-0400 Heart rate 79 /min Isai [facility] 06-17-2023 15:32-0400 Blood Pressure Location Mike Rainer [facility] 06-17-2023 15:32-0400 Body temperature 98.24 [degF] Mikevanessa Spear [facility] 06-17-2023 15:32-0400 Diastolic blood pressure 84 mm[Hg] Mikevanessa Spear [facility] 06-17-2023 15:32-0400 Heart rate 73 /min Mike Rainer [facility] 06-17-2023 15:32-0400 SaO2% (BldA) [Mass fraction] 93 % Mike Rainer [facility] 06-17-2023 15:32-0400 Systolic blood pressure 128 mm[Hg] Mikevanessa Spear [facility] 06-03-2023 20:28-0400 Body temperature 98.24 [degF] Kaylinn Dokken [facility] 06-03-2023 20:28-0400 Diastolic blood pressure 92 mm[Hg] Kaylinn Dokken [facility] 06-03-2023 20:28-0400 Heart rate 76 /min Kaylrichardn Dokken [facility] 06-03-2023 20:28-0400 SaO2% (BldA) [Mass fraction] 95 % Kaylinn Dokken [facility] 06-03-2023 20:28-0400 Systolic blood pressure 149 mm[Hg] Kaylinn Dokken [facility] 04-25-2023 20:12-0400 Diastolic blood pressure 74 mm[Hg] OCCUPATIONAL THERAPY SPECIALIST Amanda Robuck Work Phone: [facility] 04-25-2023 20:12-0400 Heart rate 108 /min OCCUPATIONAL THERAPY SPECIALIST Amanda Robuck Work Phone: [facility] 04-25-2023 20:12-0400 Respiratory rate 19 /min OCCUPATIONAL THERAPY SPECIALIST Amanda Robuck Work Phone: [facility] 04-25-2023 20:12-0400 SaO2% (BldA) [Mass fraction] 95 % OCCUPATIONAL THERAPY SPECIALIST Amanda Robuck Work Phone: [facility] 04-25-2023 20:12-0400 Systolic blood pressure 127 mm[Hg] OCCUPATIONAL THERAPY SPECIALIST Amanda Robuck Work Phone: [facility] 04-25-2023 17:45-0400 Body height 157.48 cm OCCUPATIONAL THERAPY SPECIALIST Amanda Robuck Work Phone: [facility] 04-25-2023 17:45-0400 Body temperature 97.8 [degF] OCCUPATIONAL THERAPY SPECIALIST Amanda Robuck Work Phone: [facility] 04-25-2023 17:45-0400 Body weight 72.2 kg OCCUPATIONAL THERAPY SPECIALIST Amanda Robuck Work Phone: [facility] 04-19-2023 22:01-0500 Body temperature 98.06 [degF] Kaylinn Dokken [facility] 04-19-2023 22:01-0500 Diastolic blood pressure 100 mm[Hg] Kaylinn Dokken [facility] 04-19-2023 22:01-0500 Heart rate 70 /min Neryylrichardn Dokken [facility] 04-19-2023 22:01-0500 Respiratory rate 25 /min Neryylinn Dokken [facility] 04-19-2023 22:01-0500 SaO2% (BldA) [Mass fraction] 99 % Keelyn Dokken [facility] 04-19-2023 22:01-0500 Systolic blood pressure 135 mm[Hg] Keelyn Jonhen [facility] 04-08-2023 19:59-0500 Body height 157.48 cm OCCUPATIONAL THERAPY SPECIALIST Amanda Robuck Work Phone: [facility] 04-08-2023 19:59-0500 Body temperature 98.3 [degF] OCCUPATIONAL THERAPY SPECIALIST Amanda Robuck Work Phone: [facility] 04-08-2023 19:59-0500 Body weight 73 kg OCCUPATIONAL THERAPY SPECIALIST Amanda Robuck Work Phone: [facility] 04-08-2023 19:59-0500 Diastolic blood pressure 75 mm[Hg] OCCUPATIONAL THERAPY SPECIALIST Amanda Robuck Work Phone: [facility] 04-08-2023 19:59-0500 Heart rate 87 /min OCCUPATIONAL THERAPY SPECIALIST Amanda Robuck Work Phone: [facility] 04-08-2023 19:59-0500 Respiratory rate 21 /min OCCUPATIONAL THERAPY SPECIALIST Amanda Robuck Work Phone: [facility] 04-08-2023 19:59-0500 SaO2% (BldA) [Mass fraction] 100 % OCCUPATIONAL THERAPY SPECIALIST Amanda Robuck Work Phone: [facility] 04-08-2023 19:59-0500 Systolic blood pressure 143 mm[Hg] OCCUPATIONAL THERAPY SPECIALIST Amanda Robuck Work Phone: [facility] 04-06-2023 21:12-0500 Diastolic blood pressure 93 mm[Hg] Diamante Cleveland Work Phone: [facility] 04-06-2023 21:12-0500 Heart rate 110 /min Diamante Cleveland Work Phone: [facility] 04-06-2023 21:12-0500 Respiratory rate 18 /min Diamante Cleveland Work Phone: [facility] 04-06-2023 21:12-0500 SaO2% (BldA) [Mass fraction] 93 % Diamante Cleveland Work Phone: [facility] 04-06-2023 21:12-0500 Systolic blood pressure 140 mm[Hg] Diamante Cleveland Work Phone: [facility] 04-06-2023 16:37-0500 Body height 157.48 cm Diamante Cleveland Work Phone: [facility] 04-06-2023 16:37-0500 Body temperature 97.9 [degF] Diamante Cleveland Work Phone: [facility] 04-06-2023 16:37-0500 Body weight 72 kg Diamante Cleveland Work Phone: [facility] 03-17-2023 11:19-0500 Diastolic blood pressure 84 mm[Hg] Diamante Cleveland Work Phone: [facility] 03-17-2023 11:19-0500 Heart rate 80 /min Diamante Cleveland Work Phone: [facility] 03-17-2023 11:19-0500 Respiratory rate 18 /min Diamante Cleveland Work Phone: [facility] 03-17-2023 11:19-0500 SaO2% (BldA) [Mass fraction] 99 % Diamante Cleveland Work Phone: [facility] 03-17-2023 11:19-0500 Systolic blood pressure 115 mm[Hg] Diamante Cleveland Work Phone: [facility] 03-17-2023 08:31-0500 Body height 157.48 cm Diamante Cleveland Work Phone: [facility] 03-17-2023 08:31-0500 Body temperature 98.1 [degF] Diamante Cleveland Work Phone: [facility] 03-17-2023 08:31-0500 Body weight 71.2 kg Diamante Cleveland Work Phone: [facility] 03-12-2023 15:51-0500 Heart rate 74 /min Diamante Cleveland Work Phone: [facility] 03-12-2023 15:48-0500 Body height 157.48 cm Diamante Cleveland Work Phone: [phone] [place] [address] 03-12-2023 15:48-0500 Body temperature 97.6 [degF] Diamante Cleveland Work Phone: [facility] 03-12-2023 15:48-0500 Body weight 71 kg Diamante Cleveland Work Phone: [facility] 03-12-2023 15:48-0500 Diastolic blood pressure 92 mm[Hg] Diamante Cleveland Work Phone: [facility] 03-12-2023 15:48-0500 Respiratory rate 16 /min Diamante Cleveland Work Phone: [facility] 03-12-2023 15:48-0500 SaO2% (BldA) [Mass fraction] 97 % Diamante Cleveland Work Phone: [facility] 03-12-2023 15:48-0500 Systolic blood pressure 128 mm[Hg] Diamante Cleveland Work Phone: [facility] 03-04-2023 19:06-0500 Body height 154.94 cm DO Ari More Work Phone: [facility] 03-04-2023 19:06-0500 Body temperature 97.8 [degF] DO Ari More Work Phone: [facility] 03-04-2023 19:06-0500 Body weight 71 kg DO Ari More Work Phone: [facility] 03-04-2023 19:06-0500 Diastolic blood pressure 97 mm[Hg] DO Ari More Work Phone: [facility] 03-04-2023 19:06-0500 Heart rate 89 /min DO Ari More Work Phone: [facility] 03-04-2023 19:06-0500 Respiratory rate 25 /min DO Ari More Work Phone: [facility] 03-04-2023 19:06-0500 SaO2% (BldA) [Mass fraction] 95 % DO Ari More Work Phone: [facility] 03-04-2023 19:06-0500 Systolic blood pressure 135 mm[Hg] DO Ari More Work Phone: [facility] 01-25-2023 06:21-0500 Diastolic blood pressure 68 mm[Hg] DO Ari More Work Phone: [facility] 01-25-2023 06:21-0500 Heart rate 88 /min DO Ari More Work Phone: [facility] 01-25-2023 06:21-0500 Respiratory rate 18 /min DO Ari More Work Phone: [facility] 01-25-2023 06:21-0500 SaO2% (BldA) [Mass fraction] 97 % DO Ari More Work Phone: [facility] 01-25-2023 06:21-0500 Systolic blood pressure 102 mm[Hg] DO Ari More Work Phone: [facility] 01-25-2023 01:01-0500 Body height 157.48 cm DO Ari More Work Phone: [facility] 01-25-2023 01:01-0500 Body temperature 98.9 [degF] DO Ari More Work Phone: [facility] 01-25-2023 01:01-0500 Body weight 65.77 kg DO Ari More Work Phone: [facility] 01-19-2023 12:00-0500 Diastolic blood pressure 89 mm[Hg] DO Ari More Work Phone: [facility] 01-19-2023 12:00-0500 Heart rate 82 /min DO Ari More Work Phone: [facility] 01-19-2023 12:00-0500 Respiratory rate 22 /min DO Ari More Work Phone: [facility] 01-19-2023 12:00-0500 SaO2% (BldA) [Mass fraction] 99 % DO Ari More Work Phone: [facility] 01-19-2023 12:00-0500 Systolic blood pressure 143 mm[Hg] DO Ari More Work Phone: [facility] 01-19-2023 10:33-0500 Body height 161.29 cm DO Ari More Work Phone: [facility] 01-19-2023 10:33-0500 Body temperature 97.7 [degF] DO Ari More Work Phone: [facility] 01-19-2023 10:33-0500 Body weight 71 kg DO Ari More Work Phone: [facility] 01-08-2023 13:57-0500 Body height 154.94 cm OCCUPATIONAL THERAPY SPECIALIST Amanda Robuck Work Phone: [facility] 01-08-2023 13:57-0500 Body temperature 98.1 [degF] OCCUPATIONAL THERAPY SPECIALIST Amanda Robuck Work Phone: [facility] 01-08-2023 13:57-0500 Body weight 71.2 kg OCCUPATIONAL THERAPY SPECIALIST Amanda Robuck Work Phone: [facility] 01-08-2023 13:57-0500 Diastolic blood pressure 88 mm[Hg] OCCUPATIONAL THERAPY SPECIALIST Amanda Robuck Work Phone: [facility] 01-08-2023 13:57-0500 Heart rate 100 /min OCCUPATIONAL THERAPY SPECIALIST Amanda Robuck Work Phone: [facility] 01-08-2023 13:57-0500 Respiratory rate 20 /min OCCUPATIONAL THERAPY SPECIALIST Amanda Robuck Work Phone: [facility] 01-08-2023 13:57-0500 SaO2% (BldA) [Mass fraction] 98 % OCCUPATIONAL THERAPY SPECIALIST Amanda Robuck Work Phone: [facility] 01-08-2023 13:57-0500 Systolic blood pressure 149 mm[Hg] OCCUPATIONAL THERAPY SPECIALIST Amanda Robuck Work Phone: [facility] 01-06-2023 14:00-0500 Heart rate 58 /min Azra EDISON [facility] 01-06-2023 14:00-0500 Hourly Rounding Azra EDISON [facility] 01-06-2023 14:00-0500 Promise to Return Azra EDISON [facility] 01-06-2023 14:00-0500 Respiratory rate 12 /min Azra EDISON [facility] 01-06-2023 14:00-0500 SaO2% (BldA) [Mass fraction] 98 % Azra EDISON [facility] 01-06-2023 13:20-0500 Hourly Rounding Azra EDISON [facility] 01-06-2023 13:20-0500 Promise to Return Azra EDISON [facility] 01-06-2023 13:00-0500 Heart rate 56 /min Azra EDISON [facility] 01-06-2023 12:27-0500 Hourly Rounding Azra EDISON [facility] 01-06-2023 12:27-0500 Promise to Return Azra EDISON [facility] 01-06-2023 12:00-0500 Diastolic blood pressure 88 mm[Hg] Azra EDISON [facility] 01-06-2023 12:00-0500 Heart rate 66 /min Azra EDISON [facility] 01-06-2023 12:00-0500 Mean blood pressure 111 mm[Hg] Azra EDISON [facility] 01-06-2023 12:00-0500 SaO2% (BldA) [Mass fraction] 97 % Azra EDISON [facility] 01-06-2023 12:00-0500 Systolic blood pressure 158 mm[Hg] Azra EDISON [facility] 01-06-2023 10:00-0500 Diastolic blood pressure 105 mm[Hg] Azra EDISON [facility] 01-06-2023 10:00-0500 Mean blood pressure 117 mm[Hg] Azra EDISON [facility] 01-06-2023 10:00-0500 Systolic blood pressure 141 mm[Hg] Azra EDISON [facility] 01-06-2023 09:00-0500 Diastolic blood pressure 99 mm[Hg] Azra EDISON [facility] 01-06-2023 09:00-0500 Systolic blood pressure 153 mm[Hg] Azra EDISON [facility] 01-06-2023 08:00-0500 Body temperature 97.7 [degF] Azra EDISON [facility] 01-06-2023 04:00-0500 Body temperature 97.34 [degF] Azra EDISON [facility] 01-06-2023 00:00-0500 Body temperature 97.52 [degF] Azra EDISON [facility] 2023 07:08-0500 Heart rate 73 /min Azra EDISON [facility] 2023 05:54-0500 Blood Pressure Location Azra EDISON [facility] 2023 05:54-0500 Heart rate 72 /min Azra EDISON [facility] 2023 05:54-0500 Respiratory rate 12 /min Azra EDISON [facility] 2023 01:56-0500 Heart rate 79 /min Azra EDISON [facility] 2023 00:53-0500 Respiratory rate 16 /min Azra EDISON [facility] 01-02-2023 02:44-0500 Diastolic blood pressure 71 mm[Hg] Darren Megan [facility] 01-02-2023 02:44-0500 Heart rate 86 /min Darren Megan [facility] 01-02-2023 02:44-0500 Mean blood pressure 84 mm[Hg] Darren Megan [facility] 01-02-2023 02:44-0500 Respiratory rate 18 /min Darren Megan [facility] 01-02-2023 02:44-0500 SaO2% (BldA) [Mass fraction] 97 % Darren Megan [facility] 01-02-2023 02:44-0500 Systolic blood pressure 110 mm[Hg] Darren Megan [facility] 01-02-2023 00:43-0500 Body temperature 97.88 [degF] Darren Megan [facility] 01-02-2023 00:43-0500 Diastolic blood pressure 87 mm[Hg] Darren Megan [facility] 01-02-2023 00:43-0500 Heart rate 88 /min Darren Megan [facility] 01-02-2023 00:43-0500 Respiratory rate 16 /min Darren Megan [facility] 01-02-2023 00:43-0500 SaO2% (BldA) [Mass fraction] 97 % Darren Megan [facility] 01-02-2023 00:43-0500 Systolic blood pressure 137 mm[Hg] Darren Megan [facility] 12-16-2022 20:58-0500 Diastolic blood pressure 79 mm[Hg] Amy Harned MD Work Phone: [facility] 12-16-2022 20:58-0500 Heart rate 98 /min Amy Steele MD Work Phone: [facility] 12-16-2022 20:58-0500 Respiratory rate 20 /min Amy Steele MD Work Phone: [facility] 12-16-2022 20:58-0500 SaO2% (BldA) [Mass fraction] 98 % Amy Steele MD Work Phone: [facility] 12-16-2022 20:58-0500 Systolic blood pressure 116 mm[Hg] Amy Steele MD Work Phone: [facility] 12-15-2022 05:27-0400 Body temperature 97.2 [degF] Amy Steele MD Work Phone: [facility] 12-14-2022 21:01-0400 Body height 162.6 cm Amy Steele MD Work Phone: [facility] 12-14-2022 21:01-0400 Body mass index (BMI) [Ratio] 22.31 kg/m2 Amy Steele MD Work Phone: [facility] 12-14-2022 21:01-0400 Body weight 58.97 kg Amy Steele MD Work Phone: [facility] 12-11-2022 16:02-0400 Diastolic blood pressure 68 mm[Hg] OCCUPATIONAL THERAPY SPECIALIST Amanda Robuck Work Phone: [facility] 12-11-2022 16:02-0400 Heart rate 72 /min OCCUPATIONAL THERAPY SPECIALIST Amanda Robuck Work Phone: [facility] 12-11-2022 16:02-0400 Respiratory rate 18 /min OCCUPATIONAL THERAPY SPECIALIST Amanda Robuck Work Phone: [facility] 12-11-2022 16:02-0400 SaO2% (BldA) [Mass fraction] 96 % LOGAN Bernard Work Phone: [facility] 12-11-2022 16:02-0400 Systolic blood pressure 117 mm[Hg] LOGAN Bernard Work Phone: [facility] 12-11-2022 13:45-0400 Inhaled oxygen flow rate 2 L/min LOGAN Bernard Work Phone: [facility] 12-11-2022 11:30-0400 Body height 165.1 cm LOGAN Bernard Work Phone: [facility] 12-11-2022 11:30-0400 Body temperature 97.1 [degF] LOGAN Bernard Work Phone: [facility] 12-11-2022 11:30-0400 Body weight 76.6 kg LOGAN Bernard Work Phone: [facility] 12-10-2022 21:52-0400 Heart rate 89 /min Eric Forbes [facility] 12-10-2022 21:52-0400 Respiratory rate 19 /min Eric Forbes [facility] 12-10-2022 21:52-0400 SaO2% (BldA) [Mass fraction] 95 % Eric Forbes [facility] 12-10-2022 20:07-0400 Diastolic blood pressure 88 mm[Hg] Eric Forbes [facility] 12-10-2022 20:07-0400 Heart rate 90 /min Eric Forbes [facility] 12-10-2022 20:07-0400 Respiratory rate 18 /min Eric Forbes [facility] 12-10-2022 20:07-0400 SaO2% (BldA) [Mass fraction] 98 % Eric Benavideze [facility] 12-10-2022 20:07-0400 Systolic blood pressure 138 mm[Hg] Eric Leidy [facility] 12-10-2022 18:30-0400 Heart rate 88 /min Eric Leidy [facility] 12-10-2022 18:30-0400 Respiratory rate 18 /min Eric Leidy [facility] 12-10-2022 18:30-0400 SaO2% (BldA) [Mass fraction] 99 % Eric Leidy [facility] 12-10-2022 17:23-0400 Body temperature 98.42 [degF] Eric Benavideze [facility] 12-10-2022 17:23-0400 Diastolic blood pressure 101 mm[Hg] Eric Benavideze [facility] 12-10-2022 17:23-0400 Systolic blood pressure 140 mm[Hg] Eric Benavideze [facility] 12-10-2022 11:45-0400 Diastolic blood pressure 98 mm[Hg] Eric Benavideze [facility] 12-10-2022 11:45-0400 Heart rate 96 /min Eric Benavideze [facility] 12-10-2022 11:45-0400 Mean blood pressure 116 mm[Hg] Eric Leidy [facility] 12-10-2022 11:45-0400 Respiratory rate 18 /min Eric Leidy [facility] 12-10-2022 11:45-0400 SaO2% (BldA) [Mass fraction] 96 % Eric Leidy [facility] 12-10-2022 11:45-0400 Systolic blood pressure 153 mm[Hg] Eric Leidy [facility] 12-10-2022 10:29-0400 SaO2% (BldA) [Mass fraction] 93 % Eric Leidy [facility] 12-10-2022 10:15-0400 Diastolic blood pressure 82 mm[Hg] Eric Leidy [facility] 12-10-2022 10:15-0400 Heart rate 75 /min Eric Leidy [facility] 12-10-2022 10:15-0400 Mean blood pressure 95 mm[Hg] Eric Leidy [facility] 12-10-2022 10:15-0400 Respiratory rate 18 /min Eric Benavideze [facility] 12-10-2022 10:15-0400 SaO2% (BldA) [Mass fraction] 93 % Eric Leidy [facility] 12-10-2022 10:15-0400 Systolic blood pressure 122 mm[Hg] Eric Leidy [facility] 12-10-2022 09:00-0400 Diastolic blood pressure 81 mm[Hg] Eric Leidy [facility] 12-10-2022 09:00-0400 Heart rate 65 /min Eric Leidy [facility] 12-10-2022 09:00-0400 Systolic blood pressure 123 mm[Hg] Eric Leidy [facility] 12-10-2022 08:01-0400 Body temperature 97.88 [degF] Eric Leidy [facility] 12-10-2022 08:01-0400 Heart rate 91 /min Eric Leidy [facility] 12-10-2022 08:01-0400 Respiratory rate 20 /min Eric Forbes [facility] 11-30-2022 13:30-0400 Blood Pressure Location CARRIE PEREZ [facility] 11-30-2022 13:30-0400 Body temperature 98.6 [degF] KOSSUTH PEREZ [facility] 11-30-2022 13:30-0400 Diastolic blood pressure 82 mm[Hg] KOSSUTH PEREZ [facility] 11-30-2022 13:30-0400 Heart rate 68 /[facility] 11-30-2022 13:30-0400 SaO2% (BldA) [Mass fraction] 98 [facility] 11-30-2022 13:30-0400 Systolic blood pressure 138 mm[Hg] KOSSUTH PEREZ [facility] 11-04-2022 15:46-0400 Diastolic blood pressure 95 mm[Hg] [facility] 11-04-2022 15:46-0400 Heart rate 58 /min [facility] 11-04-2022 15:46-0400 Respiratory rate 16 /min [facility] 11-04-2022 15:46-0400 SaO2% (BldA) [Mass fraction] 98 % [facility] 11-04-2022 15:46-0400 Systolic blood pressure 153 mm[Hg] [facility] 11-04-2022 14:38-0400 Diastolic blood pressure 121 mm[Hg] [facility] 11-04-2022 14:38-0400 Heart rate 67 /min [facility] 11-04-2022 14:38-0400 Respiratory rate 18 /min [facility] 11-04-2022 14:38-0400 SaO2% (BldA) [Mass fraction] 98 % [facility] 11-04-2022 14:38-0400 Systolic blood pressure 176 mm[Hg] [facility] 11-04-2022 13:22-0400 Diastolic blood pressure 120 mm[Hg] [facility] 11-04-2022 13:22-0400 Heart rate 84 /min [facility] 11-04-2022 13:22-0400 Respiratory rate 18 /min [facility] 11-04-2022 13:22-0400 SaO2% (BldA) [Mass fraction] 99 % [facility] 11-04-2022 13:22-0400 Systolic blood pressure 180 mm[Hg] [facility] 11-04-2022 12:23-0400 Body temperature 97.7 [degF] [facility] 11-04-2022 12:23-0400 Heart rate 70 /min [facility] 09-06-2022 11:52-0400 Diastolic blood pressure 103 mm[Hg] OCCUPATIONAL THERAPY SPECIALIST Amanda Robuck Work Phone: [facility] 09-06-2022 11:52-0400 Heart rate 76 /min OCCUPATIONAL THERAPY SPECIALIST Amanda Robuck Work Phone: [facility] 09-06-2022 11:52-0400 Respiratory rate 18 /min OCCUPATIONAL THERAPY SPECIALIST Amanda Robuck Work Phone: [facility] 09-06-2022 11:52-0400 SaO2% (BldA) [Mass fraction] 97 % OCCUPATIONAL THERAPY SPECIALIST Amanda Robuck Work Phone: [facility] 09-06-2022 11:52-0400 Systolic blood pressure 159 mm[Hg] LOGAN Bernard Work Phone: [facility] 09-06-2022 10:16-0400 Body height 157.48 cm LOGAN Bernard Work Phone: [facility] 09-06-2022 10:16-0400 Body temperature 97.1 [degF] LOGAN Bernard Work Phone: [facility] 09-06-2022 10:16-0400 Body weight 71.4 kg LOGAN Bernard Work Phone: [facility] 08-28-2022 09:49-0400 Blood Pressure Location Lorie Gudimella [facility] 08-28-2022 09:49-0400 Body temperature 98.6 [degF] Lorie Gudimella [facility] 08-28-2022 09:49-0400 Diastolic blood pressure 60 mm[Hg] Lorie Gudimella [facility] 08-28-2022 09:49-0400 Heart rate 71 /min Lorie Gudimella [facility] 08-28-2022 09:49-0400 SaO2% (BldA) [Mass fraction] 96 % Lorie Gudimella [facility] 08-28-2022 09:49-0400 Systolic blood pressure 118 mm[Hg] Lorie Gudimella [facility] 08-18-2022 10:01-0400 Hourly Rounding Azra HOGAN [facility] 08-18-2022 10:01-0400 Promise to Return Azra EDISON [facility] 08-18-2022 09:52-0400 Hourly Rounding Azra EDISON [facility] 08-18-2022 09:52-0400 Promise to Return Azra EDISON [facility] 08-18-2022 08:46-0400 Hourly Rounding Azra EDISON [facility] 08-18-2022 08:46-0400 Promise to Return Azra EDISON [facility] 08-18-2022 08:00-0400 Body temperature 98.06 [degF] Azra EDISON [facility] 08-18-2022 08:00-0400 Diastolic blood pressure 72 mm[Hg] Azra EDISON [facility] 08-18-2022 08:00-0400 Heart rate 65 /min Azra EDISON [facility] 08-18-2022 08:00-0400 SaO2% (BldA) [Mass fraction] 96 % Azra EDISON [facility] 08-18-2022 08:00-0400 Systolic blood pressure 120 mm[Hg] Azra EDISON [facility] 08-18-2022 00:00-0400 Body temperature 98.06 [degF] Azra EDISON [facility] 08-18-2022 00:00-0400 Diastolic blood pressure 68 mm[Hg] Azra EDISON [facility] 08-18-2022 00:00-0400 Heart rate 69 /min Azra EDISON [facility] 08-18-2022 00:00-0400 SaO2% (BldA) [Mass fraction] 98 % Azramalorie JENSENSLIN [facility] 08-18-2022 00:00-0400 Systolic blood pressure 110 mm[Hg] Azramalorie JENSENSLIN [facility] 08-17-2022 19:57-0400 Heart rate 74 /min Azramalorie JENSENSLIN [facility] 08-17-2022 19:57-0400 SaO2% (BldA) [Mass fraction] 97 % Azra JENSENSLIN [facility] 08-17-2022 19:56-0400 Diastolic blood pressure 69 mm[Hg] Azramalorie JENSENSLIN [facility] 08-17-2022 19:56-0400 Mean blood pressure 82 mm[Hg] Azramalorie JENSENSLIN [facility] 08-17-2022 19:56-0400 Systolic blood pressure 109 mm[Hg] Azramalorie JENSENSLIN [facility] 08-17-2022 19:55-0400 Body temperature 97.52 [degF] Azramalorie JENSENSLIN [facility] 08-17-2022 16:22-0400 Mean blood pressure 124 mm[Hg] Azramalorie JENSENSLIN [facility] 08-17-2022 11:47-0400 Mean blood pressure 82 mm[Hg] Azra EDISON [facility] 08-17-2022 11:46-0400 Body temperature 97.88 [degF] Azra EDISON [facility] 08-17-2022 08:20-0400 Body temperature 96.62 [degF] Azra EDISON [facility] 08-17-2022 06:50-0400 Blood Pressure Location Azra EDISON [facility] 08-17-2022 06:50-0400 Heart rate 54 /min Azra EDISON [facility] 08-17-2022 06:24-0400 Mean blood pressure 93 mm[Hg] Azra EDISON [facility] 08-17-2022 06:24-0400 Respiratory rate 11 /min Azra EDISON [facility] 08-17-2022 05:19-0400 Mean blood pressure 92 mm[Hg] Azra EDISON [facility] 08-17-2022 05:19-0400 Respiratory rate 31 /min Azra EDISON [facility] 08-17-2022 03:00-0400 Mean blood pressure 85 mm[Hg] Azra EDISON [facility] 08-17-2022 03:00-0400 Respiratory rate 32 /min Azra EDISON [facility] 08-17-2022 01:39-0400 Blood Pressure Location Azramalorie JENSENSLIN [facility] 08-17-2022 01:39-0400 Heart rate 64 /min Azra EDISON [facility] 08-17-2022 01:39-0400 Respiratory rate 15 /min Azra EDISON [facility] 08-17-2022 01:24-0400 Body temperature 97.16 [degF] Azra EDISON [facility] 08-17-2022 01:24-0400 Heart rate 62 /min Azra HOGAN [facility] 08-16-2022 23:47-0400 Body temperature 96.62 [degF] Azra HOGAN [facility] 08-16-2022 23:47-0400 Respiratory rate 23 /min Azra HOGAN [facility] 08-13-2022 13:26-0400 Diastolic blood pressure 88 mm[Hg] Amanda ROBUCK [facility] 08-13-2022 13:26-0400 Mean blood pressure 101 mm[Hg] Amanda ROBUCK [facility] 08-13-2022 13:26-0400 Systolic blood pressure 128 mm[Hg] Amanda ROBUCK [facility] 08-13-2022 12:58-0400 Blood Pressure Location Amanda ROBUCK [facility] 08-13-2022 12:58-0400 Diastolic blood pressure 107 mm[Hg] Amanda ROBUCK [facility] 08-13-2022 12:58-0400 Heart rate 84 /min Amanda ROBUCK [facility] 08-13-2022 12:58-0400 SaO2% (BldA) [Mass fraction] 99 % Amanda ROBUCK [facility] 08-13-2022 12:58-0400 Systolic blood pressure 167 mm[Hg] Amanda ROBUCK [facility] 06-10-2022 07:30-0400 Body temperature 97.5 [degF] OCCUPATIONAL THERAPY SPECIALIST Amanda Robuck Work Phone: [facility] 06-10-2022 07:30-0400 Diastolic blood pressure 92 mm[Hg] OCCUPATIONAL THERAPY SPECIALIST Amanda Robuck Work Phone: [facility] 06-10-2022 07:30-0400 Heart rate 78 /min OCCUPATIONAL THERAPY SPECIALIST Amanda Robuck Work Phone: [facility] 06-10-2022 07:30-0400 Respiratory rate 18 /min OCCUPATIONAL THERAPY SPECIALIST Amanda Robuck Work Phone: [facility] 06-10-2022 07:30-0400 SaO2% (BldA) [Mass fraction] 97 % OCCUPATIONAL THERAPY SPECIALIST Amanda Robuck Work Phone: [facility] 06-10-2022 07:30-0400 Systolic blood pressure 132 mm[Hg] OCCUPATIONAL THERAPY SPECIALIST Amanda Robuck Work Phone: [facility] 06-08-2022 14:09-0400 Body height 157.48 cm OCCUPATIONAL THERAPY SPECIALIST Amanda Robuck Work Phone: [facility] 06-07-2022 17:31-0400 Body weight 72.57 kg OCCUPATIONAL THERAPY SPECIALIST Amanda Robuck Work Phone: [facility] 06-07-2022 15:22-0400 Diastolic blood pressure 91 mm[Hg] OCCUPATIONAL THERAPY SPECIALIST Amanda Robuck Work Phone: [facility] 06-07-2022 15:22-0400 Heart rate 90 /min OCCUPATIONAL THERAPY SPECIALIST Amanda Robuck Work Phone: [facility] 06-07-2022 15:22-0400 Respiratory rate 24 /min OCCUPATIONAL THERAPY SPECIALIST Amanda Robuck Work Phone: [facility] 06-07-2022 15:22-0400 SaO2% (BldA) [Mass fraction] 97 % OCCUPATIONAL THERAPY SPECIALIST Amanda Robuck Work Phone: [facility] 06-07-2022 15:22-0400 Systolic blood pressure 151 mm[Hg] OCCUPATIONAL THERAPY SPECIALIST Amanda Robuck Work Phone: [facility] 06-07-2022 08:57-0400 Body height 157.48 cm OCCUPATIONAL THERAPY SPECIALIST Amanda Robuck Work Phone: [facility] 06-07-2022 08:57-0400 Body temperature 98.3 [degF] OCCUPATIONAL THERAPY SPECIALIST Amanda Robuck Work Phone: [facility] 06-07-2022 08:57-0400 Body weight 73.02 kg OCCUPATIONAL THERAPY SPECIALIST Amanda Robuck Work Phone: [facility] 04-24-2022 14:45-0400 Body height 160.02 cm Imad Asaad Other [facility] [employer] Other 04-24-2022 14:45-0400 Body mass index (BMI) [Ratio] 29.23 kg/m2 Imad Asaad Other [employer] [facility] [employer] Other 04-24-2022 14:45-0400 Body weight 74.84 kg Imad Asaad Other [employer] Other 04-24-2022 14:45-0400 Diastolic blood pressure 56 mm[Hg] Imad Asaad Other [employer] Other 04-24-2022 14:45-0400 Systolic blood pressure 109 mm[Hg] Imad Asaad Other [employer] Other 04-11-2022 11:11-0500 Diastolic blood pressure 70 mm[Hg] OCCUPATIONAL THERAPY SPECIALIST Amanda Robuck Work Phone: [facility] 04-11-2022 11:11-0500 Heart rate 72 /min OCCUPATIONAL THERAPY SPECIALIST Amanda Robuck Work Phone: [facility] 04-11-2022 11:11-0500 Respiratory rate 16 /min OCCUPATIONAL THERAPY SPECIALIST Amanda Robuck Work Phone: [facility] 04-11-2022 11:11-0500 SaO2% (BldA) [Mass fraction] 98 % OCCUPATIONAL THERAPY SPECIALIST Amanda Robuck Work Phone: [facility] 04-11-2022 11:11-0500 Systolic blood pressure 148 mm[Hg] OCCUPATIONAL THERAPY SPECIALIST Amanda Robuck Work Phone: 7(709)[phone] [place] [address] 04-11-2022 08:29-0500 Body height 157.48 cm OCCUPATIONAL THERAPY SPECIALIST Amanda Robuck Work Phone: 0(363)263-732337 [place] [address] 04-11-2022 08:29-0500 Body temperature 97.5 [degF] OCCUPATIONAL THERAPY SPECIALIST Amanda Robuck Work Phone: 4(887)300-[address] [place] [address] 04-11-2022 08:29-0500 Body weight 74.84 kg OCCUPATIONAL THERAPY SPECIALIST Amanda Robuck Work Phone: 4(759)[phone] [place] [address] 04-04-2022 09:31-0500 Diastolic blood pressure 59 mm[Hg] OCCUPATIONAL THERAPY SPECIALIST Amanda Robuck Work Phone: [facility] 04-04-2022 09:31-0500 Heart rate 85 /min OCCUPATIONAL THERAPY SPECIALIST Amanda Robuck Work Phone: [facility] 04-04-2022 09:31-0500 Respiratory rate 20 /min OCCUPATIONAL THERAPY SPECIALIST Amanda Robuck Work Phone: 4(464)564-721137 [place] [address] 04-04-2022 09:31-0500 SaO2% (BldA) [Mass fraction] 93 % OCCUPATIONAL THERAPY SPECIALIST Amanda Robuck Work Phone: 5(697)[phone] [place] [address] 04-04-2022 09:31-0500 Systolic blood pressure 110 mm[Hg] OCCUPATIONAL THERAPY SPECIALIST Amanda Robuck Work Phone: 9(315)[phone] [place] [address] 04-03-2022 21:50-0500 Body height 170.18 cm OCCUPATIONAL THERAPY SPECIALIST Amanda Robuck Work Phone: 5(933)[phone] [place] [address] 04-03-2022 21:50-0500 Body weight 81.6 kg OCCUPATIONAL THERAPY SPECIALIST Amanda Robuck Work Phone: [facility] 04-03-2022 21:50-0500 Inhaled oxygen flow rate 15 L/min OCCUPATIONAL THERAPY SPECIALIST Amanda Robuck Work Phone: [facility] 04-03-2022 08:06-0500 Body height 157.48 cm OCCUPATIONAL THERAPY SPECIALIST Amanda Robuck Work Phone: [facility] 04-03-2022 08:06-0500 Body temperature 96.9 [degF] OCCUPATIONAL THERAPY SPECIALIST Amanda Robuck Work Phone: [facility] 04-03-2022 08:06-0500 Body weight 74.84 kg OCCUPATIONAL THERAPY SPECIALIST Amanda Robuck Work Phone: [facility] 04-03-2022 08:06-0500 Diastolic blood pressure 86 mm[Hg] OCCUPATIONAL THERAPY SPECIALIST Amanda Robuck Work Phone: [facility] 04-03-2022 08:06-0500 Heart rate 74 /min OCCUPATIONAL THERAPY SPECIALIST Amanda Robuck Work Phone: [facility] 04-03-2022 08:06-0500 Respiratory rate 18 /min OCCUPATIONAL THERAPY SPECIALIST Amanda Robuck Work Phone: [facility] 04-03-2022 08:06-0500 SaO2% (BldA) [Mass fraction] 98 % OCCUPATIONAL THERAPY SPECIALIST Amanda Robuck Work Phone: [facility] 04-03-2022 08:06-0500 Systolic blood pressure 124 mm[Hg] OCCUPATIONAL THERAPY SPECIALIST Amanda Robuck Work Phone: [facility] 04-01-2022 18:19-0500 Body height 157.48 cm OCCUPATIONAL THERAPY SPECIALIST Amanda Robuck Work Phone: [facility] 04-01-2022 18:19-0500 Body temperature 99.4 [degF] OCCUPATIONAL THERAPY SPECIALIST Amanda Robuck Work Phone: [facility] 04-01-2022 18:19-0500 Body weight 74.84 kg OCCUPATIONAL THERAPY SPECIALIST Amanda Robuck Work Phone: [facility] 04-01-2022 18:19-0500 Diastolic blood pressure 99 mm[Hg] OCCUPATIONAL THERAPY SPECIALIST Amanda Robuck Work Phone: [facility] 04-01-2022 18:19-0500 Heart rate 111 /min OCCUPATIONAL THERAPY SPECIALIST Amanda Robuck Work Phone: [facility] 04-01-2022 18:19-0500 Respiratory rate 18 /min OCCUPATIONAL THERAPY SPECIALIST Amanda Robuck Work Phone: [facility] 04-01-2022 18:19-0500 SaO2% (BldA) [Mass fraction] 100 % OCCUPATIONAL THERAPY SPECIALIST Amanda Robuck Work Phone: [facility] 04-01-2022 18:19-0500 Systolic blood pressure 143 mm[Hg] OCCUPATIONAL THERAPY SPECIALIST Amanda Robuck Work Phone: [facility] 03-19-2022 06:50-0500 Diastolic blood pressure 78 mm[Hg] OCCUPATIONAL THERAPY SPECIALIST Amanda Robuck Work Phone: [facility] 03-19-2022 06:50-0500 Heart rate 82 /min OCCUPATIONAL THERAPY SPECIALIST Amanda Robuck Work Phone: [facility] 03-19-2022 06:50-0500 Respiratory rate 18 /min OCCUPATIONAL THERAPY SPECIALIST Amanda Robuck Work Phone: [facility] 03-19-2022 06:50-0500 SaO2% (BldA) [Mass fraction] 99 % OCCUPATIONAL THERAPY SPECIALIST Amanda Robuck Work Phone: [facility] 03-19-2022 06:50-0500 Systolic blood pressure 124 mm[Hg] OCCUPATIONAL THERAPY SPECIALIST Amanda Robuck Work Phone: [facility] 03-19-2022 05:27-0500 Body height 157.48 cm OCCUPATIONAL THERAPY SPECIALIST Amanda Robuck Work Phone: [facility] 03-19-2022 05:27-0500 Body temperature 97 [degF] LOGAN Bernard Work Phone: [facility] 03-19-2022 05:27-0500 Body weight 74.84 kg LOGAN Bernard Work Phone: [facility] 03-13-2022 12:59-0500 Body temperature 98.8 [degF] Declan Goel MD Work Phone: [employer] 03-13-2022 12:58-0500 Diastolic blood pressure 92 mm[Hg] Declan Goel MD Work Phone: [employer] 03-13-2022 12:58-0500 Systolic blood pressure 131 mm[Hg] Declan Goel MD Work Phone: [employer] 03-13-2022 12:57-0500 Heart rate 114 /min Declan Goel MD Work Phone: [employer] 03-13-2022 12:57-0500 Respiratory rate 28 /min Declan Goel MD Work Phone: [employer] 03-13-2022 12:57-0500 SaO2% (BldA) [Mass fraction] 92 % Declan Goel MD Work Phone: [employer] 03-13-2022 03:48-0500 Diastolic blood pressure 76 mm[Hg] Phu Guerra DO Work Phone: [employer] 03-13-2022 03:48-0500 Heart rate 105 /min Phu Guerra DO Work Phone: [employer] 03-13-2022 03:48-0500 Respiratory rate 16 /min Phu Guerra DO Work Phone: [employer] 03-13-2022 03:48-0500 SaO2% (BldA) [Mass fraction] 95 % Phu Guerra DO Work Phone: [employer] 03-13-2022 03:48-0500 Systolic blood pressure 133 mm[Hg] Phu Guerra DO Work Phone: [employer] 03-12-2022 23:32-0500 Body temperature 98.4 [degF] Phu Guerra DO Work Phone: [employer] 03-12-2022 14:08-0500 Body height 154.9 cm Phu Guerra DO Work Phone: [employer] 03-12-2022 14:08-0500 Body mass index (BMI) [Ratio] 30.23 kg/m2 Phu Guerra DO Work Phone: [employer] 03-12-2022 14:08-0500 Body weight 72.58 kg Phu Guerra DO Work Phone: [employer] 03-09-2022 07:03-0500 Body height 157.48 cm OCCUPATIONAL THERAPY SPECIALIST Amanda Robuck Work Phone: [facility] 03-09-2022 07:03-0500 Body temperature 97.1 [degF] OCCUPATIONAL THERAPY SPECIALIST Amanda Robuck Work Phone: [facility] 03-09-2022 07:03-0500 Body weight 78.6 kg OCCUPATIONAL THERAPY SPECIALIST Amanda Robuck Work Phone: [facility] 03-09-2022 07:03-0500 Diastolic blood pressure 82 mm[Hg] OCCUPATIONAL THERAPY SPECIALIST Amanda Robuck Work Phone: [facility] 03-09-2022 07:03-0500 Heart rate 73 /min OCCUPATIONAL THERAPY SPECIALIST Amanda Robuck Work Phone: [facility] 03-09-2022 07:03-0500 Respiratory rate 18 /min OCCUPATIONAL THERAPY SPECIALIST Amanda Robuck Work Phone: [facility] 03-09-2022 07:03-0500 SaO2% (BldA) [Mass fraction] 98 % OCCUPATIONAL THERAPY SPECIALIST Amanda Robuck Work Phone: [facility] 03-09-2022 07:03-0500 Systolic blood pressure 134 mm[Hg] OCCUPATIONAL THERAPY SPECIALIST Amanda Robuck Work Phone: [facility] 03-05-2022 20:34-0500 Diastolic blood pressure 79 mm[Hg] OCCUPATIONAL THERAPY SPECIALIST Amanda Robuck Work Phone: [facility] 03-05-2022 20:34-0500 Heart rate 82 /min OCCUPATIONAL THERAPY SPECIALIST Amanda Robuck Work Phone: [facility] 03-05-2022 20:34-0500 Respiratory rate 23 /min OCCUPATIONAL THERAPY SPECIALIST Amanda Robuck Work Phone: [facility] 03-05-2022 20:34-0500 SaO2% (BldA) [Mass fraction] 100 % OCCUPATIONAL THERAPY SPECIALIST Amanda Robuck Work Phone: [facility] 03-05-2022 20:34-0500 Systolic blood pressure 126 mm[Hg] OCCUPATIONAL THERAPY SPECIALIST Amanda Robuck Work Phone: [facility] 03-05-2022 13:40-0500 Body height 157.48 cm OCCUPATIONAL THERAPY SPECIALIST Amanda Robuck Work Phone: [facility] 03-05-2022 13:40-0500 Body temperature 97.8 [degF] OCCUPATIONAL THERAPY SPECIALIST Amanda Robuck Work Phone: [facility] 03-05-2022 13:40-0500 Body weight 77.11 kg OCCUPATIONAL THERAPY SPECIALIST Amanda Robuck Work Phone: [facility] 02-21-2022 07:20-0500 Diastolic blood pressure 70 mm[Hg] OCCUPATIONAL THERAPY SPECIALIST Amanda Robuck Work Phone: [facility] 02-21-2022 07:20-0500 Heart rate 89 /min OCCUPATIONAL THERAPY SPECIALIST Amanda Robuck Work Phone: [facility] 02-21-2022 07:20-0500 Respiratory rate 16 /min OCCUPATIONAL THERAPY SPECIALIST Amanda Robuck Work Phone: [facility] 02-21-2022 07:20-0500 SaO2% (BldA) [Mass fraction] 93 % OCCUPATIONAL THERAPY SPECIALIST Amanda Robuck Work Phone: 5(270)408-[address]337 [place] [address] 02-21-2022 07:20-0500 Systolic blood pressure 127 mm[Hg] OCCUPATIONAL THERAPY SPECIALIST Amanda Robuck Work Phone: 8(567)682-720737 [place] [address] 02-20-2022 19:43-0500 Body temperature 97.1 [degF] OCCUPATIONAL THERAPY SPECIALIST Amanda Robuck Work Phone: 8(789)622-427237 [place] [address] 02-20-2022 18:51-0500 Body height 157.48 cm OCCUPATIONAL THERAPY SPECIALIST Amanda Robuck Work Phone: 5(322)328-538437 [place] [address] 02-20-2022 18:51-0500 Body weight 78.9 kg OCCUPATIONAL THERAPY SPECIALIST Amanda Robuck Work Phone: 0(224)853-570937 [place] [address] 02-19-2022 11:20-0500 Body height 157.48 cm OCCUPATIONAL THERAPY SPECIALIST Amanda Robuck Work Phone: [facility] 02-19-2022 11:20-0500 Body temperature 98 [degF] OCCUPATIONAL THERAPY SPECIALIST Amanda Robuck Work Phone: [facility] 02-19-2022 11:20-0500 Body weight 79.15 kg OCCUPATIONAL THERAPY SPECIALIST Amanda Robuck Work Phone: 5(246)069-936037 [place] [address] 02-19-2022 11:20-0500 Diastolic blood pressure 95 mm[Hg] OCCUPATIONAL THERAPY SPECIALIST Amanda Robuck Work Phone: 5(980)708-061737 [place] [address] 02-19-2022 11:20-0500 Heart rate 94 /min OCCUPATIONAL THERAPY SPECIALIST Amanda Robuck Work Phone: 5(126)217-432437 [place] [address] 02-19-2022 11:20-0500 Respiratory rate 18 /min OCCUPATIONAL THERAPY SPECIALIST Amanda Robuck Work Phone: [facility] 02-19-2022 11:20-0500 SaO2% (BldA) [Mass fraction] 95 % OCCUPATIONAL THERAPY SPECIALIST Amanda Robuck Work Phone: [facility] 02-19-2022 11:20-0500 Systolic blood pressure 149 mm[Hg] OCCUPATIONAL THERAPY SPECIALIST Amanda Robuck Work Phone: [facility] 10-06-2021 16:23-0400 Diastolic blood pressure 81 mm[Hg] Varun ZURITA [facility] 10-06-2021 16:23-0400 Heart rate 53 /min Varun ZURITA [facility] 10-06-2021 16:23-0400 Mean blood pressure 99 mm[Hg] Varun ZURITA [facility] 10-06-2021 16:23-0400 SaO2% (BldA) [Mass fraction] 96 % Varun ZURITA [facility] 10-06-2021 16:23-0400 Systolic blood pressure 135 mm[Hg] Varun ZURITA [facility] 09-19-2021 10:16-0400 Blood Pressure Location Amanda ROBUCK [facility] 09-19-2021 10:16-0400 Diastolic blood pressure 78 mm[Hg] Amanda ROBUCK [facility] 09-19-2021 10:16-0400 Heart rate 86 /min Amanda ROBUCK [facility] 09-19-2021 10:16-0400 Systolic blood pressure 114 mm[Hg] Amanda ROBUCK [facility] 07-26-2021 21:00-0400 Diastolic blood pressure 98 mm[Hg] Isai Hall [facility] 07-26-2021 21:00-0400 Heart rate 86 /min Isai Rafael [facility] 07-26-2021 21:00-0400 Mean blood pressure 106 mm[Hg] Isai Rafael [facility] 07-26-2021 21:00-0400 Respiratory rate 18 /min Isai Hall [facility] 07-26-2021 21:00-0400 SaO2% (BldA) [Mass fraction] 100 % Isai Hall [facility] 07-26-2021 21:00-0400 Systolic blood pressure 123 mm[Hg] Isai Hall [facility] 07-26-2021 20:00-0400 Hourly Rounding Isai Hall [facility] 07-26-2021 20:00-0400 Nursing Progress Note Reason Other: TO ct Isai Hall [facility] 07-26-2021 20:00-0400 Promise to Return Isai Hall [facility] 07-26-2021 19:00-0400 Hourly Rounding Isai Rafael [facility] 07-26-2021 19:00-0400 Promise to Return Isai Rafael [facility] 07-26-2021 18:11-0400 Body temperature 98.24 [degF] Isai Rafael [facility] 07-26-2021 18:11-0400 Diastolic blood pressure 103 mm[Hg] Isai Rafael [facility] 07-26-2021 18:11-0400 Heart rate 103 /min Isai Hall [facility] 07-26-2021 18:11-0400 Respiratory rate 16 /min Isai Hall [facility] 07-26-2021 18:11-0400 SaO2% (BldA) [Mass fraction] 97 % Isai Hall [facility] 07-26-2021 18:11-0400 Systolic blood pressure 118 mm[Hg] Isai Hall [facility] 07-04-2021 15:06-0400 Diastolic blood pressure 77 mm[Hg] Amanda BERNARD [facility] 07-04-2021 15:06-0400 Heart rate 86 /min Amanda BERNARD [facility] 07-04-2021 15:06-0400 Systolic blood pressure 122 mm[Hg] Amanda BERNARD [facility] 05-03-2021 10:00-0400 Diastolic blood pressure 86 mm[Hg] Zaire Osuna MD Work Phone: [facility] [employer] 05-03-2021 10:00-0400 Systolic blood pressure 131 mm[Hg] Zaire Osuna MD Work Phone: [facility] [employer] 05-03-2021 09:31-0400 Body height 157.5 cm Zaire Osuna MD Work Phone: [facility] [employer] 05-03-2021 09:31-0400 Body mass index (BMI) [Ratio] 31.09 kg/m2 Zaire Osuna MD Work Phone: [employer] 05-03-2021 09:31-0400 Body temperature 98.2 [degF] Zaire Osuna MD Work Phone: [employer] 05-03-2021 09:31-0400 Body weight 77.11 kg Zaire Osuna MD Work Phone: [employer] 05-03-2021 09:31-0400 Heart rate 103 /min Zaire Osuna MD Work Phone: [employer] 05-03-2021 09:31-0400 Respiratory rate 16 /min Zaire Osuna MD Work Phone: [employer] 05-03-2021 09:31-0400 SaO2% (BldA) [Mass fraction] 96 % Zaire Osuna MD Work Phone: [employer] 05-03-2021 03:17-0400 Diastolic blood pressure 76 mm[Hg] Declan Bradshaw MD Work Phone: [employer] 05-03-2021 03:17-0400 Heart rate 86 /min Declan Bradshaw MD Work Phone: [employer] 05-03-2021 03:17-0400 SaO2% (BldA) [Mass fraction] 98 % Declan Bradshaw MD Work Phone: [employer] 05-03-2021 03:17-0400 Systolic blood pressure 107 mm[Hg] Declan Bradshaw MD Work Phone: [employer] 05-02-2021 23:07-0400 Body temperature 98.71 [degF] Declan Bradshaw MD Work Phone: [employer] 05-02-2021 23:04-0400 Body mass index (BMI) [Ratio] 31.09 kg/m2 Declan Bradshaw MD Work Phone: [employer] 05-02-2021 23:04-0400 Body weight 77.11 kg Declan Bradshaw MD Work Phone: [facility] 05-02-2021 23:04-0400 Respiratory rate 20 /min Declan Bradshaw MD Work Phone: [facility] 09-22-2020 19:10-0400 Body height 157.4 cm Elvis Ghazarian Other Phone: [facility] 09-22-2020 19:10-0400 Body temperature 96.08 [degF] Elvis Ghazarian Other Phone: [facility] 09-22-2020 19:10-0400 Diastolic blood pressure 99 mm[Hg] Elvis Ghazarian Other Phone: [facility] 09-22-2020 19:10-0400 Heart rate 90 /min Elvis Ghazarian Other Phone: [facility] 09-22-2020 19:10-0400 Respiratory rate 20 /min Elvis Ghazarian Other Phone: [facility] 09-22-2020 19:10-0400 SaO2% (BldA) [Mass fraction] 97 % Elvis Ghazarian Other Phone: [facility] 09-22-2020 19:10-0400 Systolic blood pressure 131 mm[Hg] Elvis Ghazarian Other Phone: [facility] 03-11-2020 22:20-0500 Pulse (Heart Rate) 95 /min [facility] [place] 03-11-2020 22:20-0500 Pulse Oximetry 98 % [facility] [place] 03-11-2020 22:14-0500 BMI (Body Mass Index) 32.74 kg/m2 [facility] [place] 03-11-2020 22:14-0500 Body weight 81.19 kg [facility] [place] 03-11-2020 22:14-0500 Height 157.5 cm [facility] [place] 03-11-2020 22:08-0500 Body Temperature 99.3 [degF] Crescencio [facility] [place] 03-11-2020 22:08-0500 BP Diastolic 81 mm[Hg] Crescencio [facility] [place] 03-11-2020 22:08-0500 BP Systolic 121 mm[Hg] Crescencio [facility] [place] 03-11-2020 22:08-0500 Respiratory Rate 18 /min Crescencio Flores [facility] 03-10-2020 15:50-0500 BMI (Body Mass Index) 32.74 kg/m2 [facility] 03-10-2020 15:50-0500 Body Temperature 98.01 [degF] [facility] [place] [facility] 15:50-0500 Body weight 81.19 kg [facility] 03-10-2020 15:50-0500 BP Diastolic 79 mm[Hg] [facility] [place] 03-10-2020 15:50-0500 BP Systolic 119 mm[Hg] [facility] [place] 03-10-2020 15:50-0500 Height 157.5 cm [facility] 03-10-2020 15:50-0500 Pulse (Heart Rate) 78 /min [facility] 03-10-2020 15:50-0500 Pulse Oximetry 97 % [facility] 03-10-2020 15:50-0500 Respiratory Rate 20 /min [facility] 02-24-2019 12:47-0500 BMI (Body Mass Index) 310.02 kg/m2 Nini Wolf [facility] Work Phone: 02-24-2019 12:47-0500 Body weight 768.85 kg Nini Wolf [facility] rnal Medicine Work Phone: 02-24-2019 12:47-0500 BP Diastolic 80 mm[Hg] Nini Wolf [facility] Work Phone: Comment on above: Location: LUE; Position: Sitting 02-24-2019 12:47-0500 BP Systolic 134 mm[Hg] Nini Wolf [facility]nal Medicine Work Phone: Comment on above: Location: LUE; Position: Sitting 02-24-2019 12:47-0500 BSA (Body Surface Area) 4.74 m2 Nini Wolf [facility] Internal Medicine Work Phone: 02-24-2019 12:47-0500 Height 157.48 cm Nini Wolf [facility]nal Medicine Work Phone: 02-24-2019 12:47-0500 Pulse (Heart Rate) 80 /min Nini Wolf [facility] I nternal Medicine Work Phone: 02-17-2019 12:24-0500 BMI (Body Mass Index) 30 kg/m2 Nini Wolf [facility] Work Phone: 02-17-2019 12:24-0500 Body weight 74.39 kg Nini Wolf [facility]nal Medicine Work Phone: 02-17-2019 12:24-0500 BP Diastolic 84 mm[Hg] Nini Wolf [facility] Work Phone: 02-17-2019 12:24-0500 BP Systolic 130 mm[Hg] Nini Wolf [facility] Work Phone: 02-17-2019 12:24-0500 BSA (Body Surface Area) 1.76 m2 Nini Wolf [facility] Work Phone: 02-17-2019 12:24-0500 Height 157.48 cm Nini Wolf [facility] Inte rnal Medicine Work Phone: 02-17-2019 12:24-0500 Pulse (Heart Rate) 76 /min Nini Wolf [facility] I nternal Medicine Work Phone: 12-20-2018 21:49-0500 BP Diastolic 68 mm[Hg] Luis [facility] [place] , [place] 12-20-2018 21:49-0500 BP Systolic 116 mm[Hg] Luis Boggs [facility] , [place] 12-20-2018 21:49-0500 Pulse Oximetry 98 % Luis Boggs [facility] [place] 12-20-2018 21:04-0500 BMI (Body Mass Index) 29.48 kg/m2 Luis Boggs [facility] 12-20-2018 21:04-0500 Body Temperature 97.5 [degF] Luis Boggs [facility] 12-20-2018 21:04-0500 Body weight 70.[address] [facility] [place] 12-20-2018 21:04-0500 Height 154.[address] [facility] [place] 12-20-2018 21:04-0500 Pulse (Heart Rate) 93 /min Luis Boggs [facility] 12-20-2018 21:04-0500 Respiratory Rate 20 /min Luis Boggs [facility] 11-01-2018 17:40-0400 BP Diastolic 93 mm[Hg] [facility] [place] 11-01-2018 17:40-0400 BP Systolic 143 mm[Hg] Mundo [facility] 11-01-2018 17:37-0400 BMI (Body Mass Index) 28.89 kg/m2 [facility] [place] 11-01-2018 17:37-0400 Body Temperature 97.9 [degF] [facility] [place] 11-01-2018 17:37-0400 Body weight 69.36 kg [facility] [place] 11-01-2018 17:37-0400 Height 154.9 cm Mundo [facility] 11-01-2018 17:37-0400 Pulse (Heart Rate) 84 /min [facility] [place] 11-01-2018 17:37-0400 Pulse Oximetry 99 % [facility] [place] 11-01-2018 17:37-0400 Respiratory Rate 18 /min Mundo [place] Encounters Encounter Date Encounter Type Care Provider Facility Start: 04-28-2024 End: 04-28-2024 Emergency department patient visit Ari Aguero DO Work Phone: [facility] Work Phone: Start: 03-05-2024 End: 03-05-2024 Emergency department patient visit SHAQ PORTILLO Facility:[facility] Start: 01-12-2024 ambulatory Gautam Burrows Facility:[facility] Start: 01-11-2024 End: 01-13-2024 Evaluation and management of inpatient Pavel Ortega Facility[place] Start: 01-11-2024 Emergency department patient visit Isai Hall Facility:[facility] Start: 01-11-2024 End: 01-13-2024 Evaluation and management of inpatient Pavel Ortega [facility] Start: 12-30-2023 End: 12-30-2023 Emergency department patient visit Birgit Aiken MD Work Phone: [facility] Work Phone: Start: 12-05-2023 End: 12-05-2023 Emergency department patient visit Gladys Saini [facility] Start: 12-04-2023 End: 12-04-2023 ambulatory Imad Asaad Facility:[facility] Start: 11-27-2023 Registered Recurring Birgit Aiken MD Work Phone: [facility] Start: 11-27-2023 End: 11-27-2023 Emergency department patient visit Isai Hall [facility] Start: 11-26-2023 End: 11-26-2023 Patient encounter procedure MD Birgit Aiken Work Phone: [facility]Digestive [facility] Work Phone: Start: 11-26-2023 End: 11-26-2023 ambulatory MD Birgit Aiken Work Phone: [facility] Work Phone: Start: 11-12-2023 End: 11-12-2023 Bamboo flowsheet Birgit Hughes 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 OFFICER Work Phone: [facility] Start: 11-12-2023 End: 11-12-2023 Bamboo flowsheet Birgit Hughes DRUG 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 OFFICER Work Phone: [facility] Start: 11-12-2023 End: 11-12-2023 ambulatory [facility] Facility:[facility] Start: 11-07-2023 End: 11-07-2023 ambulatory LOGAN Bernard Work Phone: [facility] Work Phone: Start: 11-07-2023 End: 11-07-2023 Patient encounter procedure LOGAN Bernard Work Phone: [facility] Gastro[facility]ology Work Phone: Start: 09-30-2023 End: 09-30-2023 ambulatory LIONEL Gomezjunie [facility] Start: 09-30-2023 End: 09-30-2023 Subsequent hospital visit by physician [facility] Start: 09-11-2023 End: 09-11-2023 Non-patient / Non-visit LOGAN Bernard [facility] Work Phone: Start: 08-29-2023 End: 08-30-2023 Emergency department patient visit Kerry Linton [facility] Start: 08-29-2023 End: 08-29-2023 ambulatory Birgit Aiken Facility:[facility] Start: 08-29-2023 End: 08-29-2023 Patient encounter procedure Birgit Aiken [facility] Start: 08-21-2023 ambulatory Amanda BERNARD Facility :[facility] Start: 08-12-2023 End: 09-11-2023 ambulatory Amanda BERNARD Facility::[id number] Start: 08-07-2023 Non-patient / Non-visit Diamante [place] Work Phone: [facility] Work Phone: Start: 08-06-2023 End: 08-10-2023 Evaluation and management of inpatient Diamante [place] Work Phone: [facility]-[address] [place] [address] Work Phone: Start: 08-06-2023 End: 08-06-2023 Emergency department patient visit Eric Forbes [facility] Start: 07-14-2023 End: 07-14-2023 Lab Drop off Mike Spear [facility] Start: 07-14-2023 End: 07-14-2023 ambulatory Mike Spear Facility:[facility] Start: 07-14-2023 End: 07-14-2023 Patient encounter procedure Mike Spear [facility] Start: 07-05-2023 Emergency department patient visit Isai Hall Facility:[facility] Start: 07-05-2023 Registered Recurring Diamante bergeron Work Phone: [facility] Start: 07-05-2023 End: 07-05-2023 Emergency department patient visit Isai Hall [facility] Start: 07-03-2023 End: 07-03-2023 Emergency department patient visit Kaushik Sparks Facility:[facility] Start: 07-03-2023 End: 07-03-2023 Emergency department patient visit Kaushik Sparks [facility] Start: 06-30-2023 End: 07-01-2023 Emergency department patient visit Isai Hall Facility:[facility] Start: 06-30-2023 End: 06-30-2023 Emergency department patient visit Isai Hall [facility] Start: 06-20-2023 ambulatory Amanda BERNARD Facility :[facility] Start: 06-17-2023 End: 06-18-2023 ambulatory Mike Spear Facility:[facility] Start: 06-17-2023 End: 06-17-2023 Lab Drop off Mike Spear [facility] Start: 06-17-2023 End: 06-17-2023 Patient encounter procedure Mike Spear [facility] Start: 06-17-2023 ambulatory Mike Spear Facili ty:[facility] Start: 06-10-2023 ambulatory Amanda BERNARD Facility :[facility] Start: 06-04-2023 ambulatory Amanda BERNARD Facility :[facility] Start: 06-03-2023 End: 06-04-2023 Emergency department patient visit Kerry Linton Facility:[facility] Start: 06-03-2023 End: 06-03-2023 Emergency department patient visit Kerry Linton [facility] Start: 05-01-2023 ambulatory Amanda BERNARD Facility :[facility] Start: 04-25-2023 End: 04-25-2023 Emergency department patient visit LOGAN Bernard Work Phone: [facility] Work Phone: Start: 04-19-2023 End: 04-20-2023 Emergency department patient visit Kerry Linton Facility:[facility] Start: 04-19-2023 End: 04-20-2023 Emergency department patient visit Kerry Linton [facility] Start: 04-08-2023 End: 04-08-2023 Emergency department patient visit OCCUPATIONAL THERAPY SPECIALIST Amanda Bernard Work Phone: [facility]Emer[facility] Work Phone: Start: 04-06-2023 End: 04-06-2023 Emergency department patient visit Diamante Cleveland Work Phone: [facility] Work Phone: Start: 03-20-2023 ambulatory Amanda E ROBUCK Facility :[facility] Start: 03-17-2023 End: 03-17-2023 Emergency department patient visit Diamante Cleveland Work Phone: [facility] Work Phone: Start: 03-12-2023 End: 03-12-2023 Emergency department patient visit Diamante Cleveland Work Phone: [facility] Work Phone: Start: 03-04-2023 End: 03-04-2023 Emergency department patient visit DO Ari More Work Phone: [facility] Work Phone: Start: 03-04-2023 ambulatory Amanda E ROBUCK Facility :[facility] Start: 01-28-2023 ambulatory Amanda E ROBUCK Facility :[facility] Start: 01-25-2023 End: 01-25-2023 Emergency department patient visit DO Ari More Work Phone: [facility] Work Phone: Start: 01-19-2023 End: 01-19-2023 Emergency department patient visit DO Ari Aguero Work Phone: [facility] Work Phone: Start: 01-17-2023 End: 01-18-2023 ambulatory Amanda BERNARD Facility:[facility] Start: 01-17-2023 End: 01-17-2023 Patient encounter procedure Amanda Lange MAURICIOJULIO [facility] Start: 01-08-2023 End: 01-08-2023 Emergency department patient visit OCCUPATIONAL THERAPY SPECIALIST Amanda Bernard Work Phone: [facility] Work Phone: Start: 01-07-2023 End: 01-07-2023 Emergency department patient visit Darren Guzman Facility:[facility] [place] Start: 2023 Registered Recurring Diamante bergeron Work Phone: [facility] Start: 2023 End: 01-06-2023 Evaluation and management of inpatient Francisco Cruz Facility:[facility] [place] Start: 2023 End: 01-06-2023 Evaluation and management of inpatient Azra Chatman EDISON [facility] Start: 01-02-2023 End: 01-02-2023 Emergency department patient visit Darren Guzman Facility:[facility] [place] Start: 01-02-2023 End: 01-02-2023 Emergency department patient visit Darren Guzman [facility] Start: 12-14-2022 End: 12-17-2022 Emergency department patient visit NINI Martinez [facility] Start: 12-14-2022 End: 12-16-2022 Emergency department patient visit Amy Steele MD Work Phone: [facility] Medicine Comment on above: Alcohol withdrawal s yndrome with complication (CMS/HCC) (Primary Dx); Bipolar affective disorder, currently manic, moderate (CMS/HCC) Start: 12-11-2022 End: 12-11-2022 Emergency department patient visit LOGAN Bernard Work Phone: [facility] Work Phone: Start: 12-10-2022 End: 12-10-2022 Emergency department patient visit Eric Forbes Facility:[facility] [place] Start: 12-10-2022 End: 12-10-2022 Emergency department patient visit Eric Forbes [facility] Start: 12-10-2022 End: 12-10-2022 Emergency department patient visit Eric Forbes Facility:[facility] [place] Start: 12-10-2022 End: 12-10-2022 Emergency department patient visit Eric Forbes [facility] Start: 11-30-2022 End: 12-01-2022 ambulatory [facility] Facility:[facility] [place] Start: 11-30-2022 End: 12-01-2022 ambulatory [facility] Facility:[facility] Start: 11-30-2022 End: 11-30-2022 Lab Drop off [facility] Start: 11-30-2022 End: 11-30-2022 Patient encounter procedure [facility] Start: 11-14-2022 End: 11-15-2022 ambulatory JADA COLBY Facility:[facility] [place] Start: 11-14-2022 End: 11-14-2022 Lab Drop off JADA COLBY [facility] Start: 11-13-2022 End: 11-14-2022 ambulatory Birgit HUGHES Facility:[facility] [place] Start: 11-13-2022 End: 11-13-2022 Patient encounter procedure Birgit HUGHES [facility] Start: 11-11-2022 End: 11-11-2022 Emergency department patient visit Isai Hall Facility:[facility] [place] Start: 11-04-2022 End: 11-04-2022 Emergency department patient visit Gladys Saini Facility:[facility] [place] Start: 11-04-2022 End: 11-04-2022 [facility] Start: 10-17-2022 ambulatory Amanda BERNARD Facility :[facility] Start: 10-11-2022 End: 10-11-2022 ambulatory OCCUPATIONAL THERAPY SPECIALISTDesean Bernard Work Phone: [facility] Work Phone: Start: 10-11-2022 End: 10-11-2022 Patient encounter procedure LOGAN Bernard Work Phone: [facility] Work Phone: Start: 10-05-2022 End: 10-06-2022 ambulatory Stanislav LITTLETON Facility:[facility] Start: 09-06-2022 End: 09-06-2022 Emergency department patient visit LOGAN Bernard Work Phone: [facility] Work Phone: Start: 08-28-2022 End: 08-29-2022 ambulatory Lorie Gudimella Facility:[facility] [place] Start: 08-28-2022 End: 08-29-2022 ambulatory Lorie Gudimella Facility:[facility] Start: 08-28-2022 End: 08-28-2022 Lab Drop off Lorie Gudimella [facility] Start: 08-28-2022 End: 08-28-2022 Patient encounter procedure Lorie Shanemeles [facility] Start: 08-21-2022 End: 09-07-2022 ambulatory Amanda BERNARD Facility::[id number] Start: 08-17-2022 End: 08-18-2022 ambulatory Francisco Cruz Facility:[facility] [place] Start: 08-16-2022 End: 08-18-2022 Observation Azra Lurdes HOGAN [facility] Start: 08-15-2022 End: 08-15-2022 Emergency department patient visit Isai Hall Facility:[facility] [place] Start: 08-13-2022 End: 08-14-2022 ambulatory Amanda KAPOORJULIO Facility:[facility] Start: 08-13-2022 End: 08-13-2022 Patient encounter procedure Amanda BERNARD [facility] Start: 06-07-2022 End: 06-10-2022 Evaluation and management of inpatient OCCUPATIONAL THERAPY SPECIALIST Amanda Bernard Work Phone: [facility] Work Phone: Start: 04-26-2022 End: 04-26-2022 Patient encounter procedure Amanda E JOANA [facility] Start: 04-24-2022 End: 04-24-2022 Patient encounter procedure OCCUPATIONAL THERAPY SPECIALIST Amanda Robuck Work Phone: [facility] [place] Work Phone: Start: 04-24-2022 End: 04-24-2022 ambulatory OCCUPATIONAL THERAPY SPECIALIST Amanda Kapooruck Work Phone: [facility] Work Phone: Start: 04-24-2022 Office outpatient ne w 45 minutes Imad Asaad [facility] Start: 04-11-2022 End: 04-11-2022 Emergency department patient visit LOGAN Bernard Work Phone: [facility] Work Phone: Start: 04-03-2022 End: 04-04-2022 Emergency department patient visit LOGAN Bernard Work Phone: [facility] Work Phone: Start: 04-03-2022 End: 04-03-2022 Emergency department patient visit OCCUPATIONAL THERAPY SPECIALISTDesean Bernard Work Phone: [facility] Work Phone: Start: 04-01-2022 End: 04-01-2022 Emergency department patient visit LOGAN Bernard Work Phone: [facility] Work Phone: Start: 03-28-2022 End: 03-28-2022 Patient encounter procedure Amanda BERNARD [facility] Start: 03-19-2022 End: 03-19-2022 Emergency department patient visit LOGAN Bernard Work Phone: [facility] Work Phone: Start: 03-13-2022 End: 03-13-2022 Emergency department patient visit DECLAN GOEL [facility] Start: 03-13-2022 Encounter for other general examination DECLAN GOEL [facility] Start: 03-13-2022 End: 03-13-2022 Emergency department patient visit Declan Goel MD Work Phone: [facility] Comment on above: Encounter for psycho logical evaluation (Primary Dx) Start: 03-13-2022 End: 03-13-2022 Patient encounter status Declan Goel MD Work Phone: [facility] Start: 03-12-2022 End: 03-13-2022 Emergency department patient visit PHU GUERRA [facility] Start: 03-12-2022 End: 03-13-2022 Emergency department patient visit Phu Guerra DO Work Phone: [facility] Comment on above: Acute alcoholic into xication with complication (HCC) (Primary Dx) Start: 03-09-2022 End: 03-09-2022 Emergency department patient visit LOGAN Bernard Work Phone: [facility] Work Phone: Start: 03-05-2022 End: 03-05-2022 Emergency department patient visit LOGAN Bernard Work Phone: [facility] Work Phone: Start: 02-20-2022 End: 02-21-2022 Emergency department patient visit OCCUPATIONAL THERAPY SPECIALISTDesean Bernard Work Phone: [facility] Work Phone: Start: 02-19-2022 End: 02-19-2022 Emergency department patient visit LOGAN Bernard Work Phone: [facility] Work Phone: Start: 10-06-2021 End: 10-06-2021 [facility] Start: 09-19-2021 End: 09-19-2021 Patient encounter procedure Amanda BERNARD [facility] [place] Start: 07-27-2021 End: 07-28-[address] NONE LISTED REQUEST Facility: Start: 07-26-2021 End: 07-26-2021 Emergency department patient visit Isai Hall [facility] Start: 07-04-2021 End: 07-04-2021 Lab Drop off Amanda BERNARD [facility] Start: 07-04-2021 End: 07-04-2021 Patient encounter procedure Amandadiogenes BERNARD [facility] Start: 06-25-2021 End: 06-26-[address] NONE LISTED REQUEST Facility: Start: 05-31-2021 End: 06-01-2021 ambulatory MARIA E [facility] Start: 05-31-2021 End: 05-31-2021 Subsequent hospital visit by physician ADBIEL Jordan Start: 05-03-2021 End: 05-03-2021 [facility] Start: 05-03-2021 End: 05-03-2021 Emergency department patient visit Zaire Osuna MD Work Phone: [facility] Comment on above: Temporary high blood pressure (Primary Dx) Start: 05-03-2021 End: 05-03-2021 [facility] Start: 05-02-2021 End: 05-03-2021 Emergency department patient visit Declan Bradshaw MD Work Phone: [facility] Comment on above: Alcohol withdrawal s yndrome with complication (HCC) (Primary Dx) Start: 02-05-2021 End: 02-06-2021 Evaluation and management of inpatient Jeffery Bynum MD Facility:[facility] Start: 10-18-2020 Emergency department patient visit NINI WOLF [facility] Start: 09-22-2020 End: 09-22-2020 Emergency department patient visit Chilo Glover [facility] Start: 08-19-2020 AUDIT Nini Wolf Work Phone: [facility] [address] [facility] Work Phone: Start: 03-15-2020 Patient encounter procedure Nini Wolf [facility] Work Phone: Start: 03-12-2020 End: 03-12-2020 Emergency department patient visit NINI WOLF [facility] Start: 03-11-2020 End: 03-11-2020 Emergency department patient visit Crescencio Flores Work Phone: [facility] Comment on above: Anxiety state (Prima ry Dx) Start: 03-10-2020 End: 03-10-2020 Emergency department patient visit [facility] Start: 03-10-2020 End: 03-10-2020 Emergency department patient visit [facility] Work Phone: [facility] Comment on above: Anxiety attack (Prim halima Dx) Start: 03-02-2020 Patient encounter procedure Nini Wolf [facility] Work Phone: Start: 01-20-2020 Patient encounter procedure Nini Wolf [facility] Work Phone: Start: 01-06-2020 Patient encounter procedure Nini Wolf [facility] Work Phone: Start: 12-23-2019 Patient encounter procedure Nini Wolf [facility] Work Phone: Start: 11-03-2019 Patient encounter procedure Nini Wolf [facility] Work Phone: Start: 10-23-2019 Patient encounter procedure Nini Wolf [facility] Work Phone: Start: 10-13-2019 Patient encounter procedure Nini Wolf [facility] Work Phone: Start: 09-08-2019 Patient encounter procedure Nini Wolf [facility] Work Phone: Start: 09-03-2019 Patient encounter procedure Nini Wolf [facility] Work Phone: Start: 08-13-2019 Patient encounter procedure Nini Wolf [facility] Work Phone: Start: 06-22-2019 Patient encounter procedure Nini Wolf [facility] Work Phone: Start: 05-20-2019 Patient encounter procedure Nini Wolf [facility] Work Phone: Start: 04-17-2019 Patient encounter procedure Nini Wolf [facility] Work Phone: Start: 04-03-2019 Patient encounter procedure Nini Wolf [facility] Work Phone: Start: 02-24-2019 Patient encounter procedure Nini Wolf [facility] Work Phone: Start: 02-17-2019 Patient encounter procedure Nini Wolf [facility] Work Phone: Start: 01-14-2019 Patient encounter procedure Nini Wolf [facility] Work Phone: Start: 12-20-2018 End: 12-20-2018 Emergency department patient visit Luis Mo Work Phone: [facility] Comment on above: Anxiety state (Prima ry Dx); Alcohol abuse Start: 11-01-2018 End: 11-01-2018 Emergency department patient visit Mundo Guzman Work Phone: 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 Work Phone: Start: 04-08-2023 Urine culture LOGAN Bernard Work Phone: Start: 03-17-2023 Urine culture Diamante B rubio Work Phone: Start: 01-25-2023 Streptococcus pyogen es antigen assay DO Ari Wanderlust Work Phone: Start: 01-25-2023 Urine culture DO Ari Wanderlust Work Phone: Start: 12-16-2022 SARS-COV-2 PCR, SCRE EN ASYMPTOMATIC NINI GUZMAN Start: 12-16-2022 Sars-cov-2 detection by dna/rna Jessica Mcdowell DO Work Phone: Start: 12-15-2022 DRUG SCREEN,URINE NINI BERNABE Start: 12-15-2022 Drug tst prsmv instr mnt chem analyzers pr date Jessica Mcdowell DO Work Phone: Start: 12-15-2022 DRUG SCREEN,URINE NINI BERNABE Start: 12-15-2022 HCG, URINE, QUALITATIVE NINI GUZMAN Start: 12-15-2022 URINALYSIS WITH REFL EX MICROSCOPIC NINI GUZMAN Start: 12-15-2022 ACUTE TOXICOLOGY ALBERT EL, BLOOD NINI GUZMAN Start: 12-15-2022 CBC W Auto Different ial panel - Blood NINI GUZMAN Start: 12-15-2022 Comprehensive metabo lic 2000 panel - Serum or Plasma NINI GUZMAN Start: 12-15-2022 Morphology Adan (Bld) [Interp] NINI GUZMAN Start: 12-14-2022 ECG 12-LEAD NINI GUZMAN Start: 12-14-2022 INITIATE REQUEST TO ANOTHER FACILITY NINI GUZMAN Start: 12-14-2022 INSERT PERIPHERAL IV AM Y [...] (Bld) Moni Steele MD Work Phone: Start: 11-06-2022 Microscopic observat ion [Identifier] in Cervix by Cyto stain Birgit Hughes NP Work Phone: Start: 10-11-2022 Ultrasound elastogra phy of liver OCCUPATIONAL THERAPY SPECIALIST Amanda Bernard Work Phone: Start: 08-30-2022 Throat culture Amanda JOSE ANTONIO MICHEL Comment on above: Performed By: #### [id number] ####[id number] [place] [address] Start: 06-07-2022 Plain chest X-ray LOGAN Bernard Work Phone: Start: 04-11-2022 Plain chest X-ray LOGAN Bernard Work Phone: Start: 04-03-2022 Blood culture for ba cteria, including anaerobic screen OCCUPATIONAL THERAPY SPECIALIST Amanda Bernard Work Phone: Start: 04-03-2022 Plain X-ray of right hand OCCUPATIONAL THERAPY SPECIALISTDesean Bernard Work Phone: Start: 03-12-2022 Drug tst prsmv instr mnt chem analyzers pr date Phu Guerra DO Work Phone: Start: 03-12-2022 Urnls dip stick/tabl et rgnt auto w/o microscopy Phu Guerra DO Work Phone: Start: 03-12-2022 Ct head/brain w/o co ntrast material Phu Guerra DO Work Phone: Start: 03-12-2022 Assay of acetaminophen Phu Guerra DO Work Phone: Start: 03-12-2022 Assay of ethanol Phu Guerra DO Work Phone: Start: 03-12-2022 Assay of salicylate Rachael tiffani Guerra DO Work Phone: Start: 03-12-2022 Comprehensive metabo lic panel Phu Guerra DO Work Phone: Start: 05-31-2021 25 hydroxy [...] TO MG FOR LOW K Fredy Kay Work Phone: Start: 05-02-2021 End: 05-03-2021 Gonadotropin chorionic qualitative Fredy Evaristo Kay Work Phone: Start: 03-02-2020 Comprehensive metabo lic [...] Blood count complete auto&auto difrntl wbc Mundo Reyeszeus Work Phone: Start: 11-01-2018 Comprehensive metabo lic panel Mundo Guzman Work Phone: Start: 11-01-2018 Fibrin dgradj produc ts d-dimer quantitative Mundo Guzman Work Phone: Start: 11-01-2018 Prothrombin time Mundo Guzman Work Phone: Start: 11-01-2018 Thromboplastin time partial plasma/whole blood Mundo Guzman Work Phone: Start: 06-21-2018 Ecg routine ecg w/le ast 12 lds w/i&r ELVIS ALVARADO Start: 06-21-2018 Assay of ethanol [facility] Start: 06-21-2018 Assay of troponin quantitative ELVIS ALVARADO Start: 06-21-2018 Blood count complete auto&auto difrntl wbc ELVIS ALVARADO Start: 06-21-2018 Comprehensive metabo lic panel ELVIS ALVARADO Start: 06-21-2018 Assay of lactate [facility] Start: 06-21-2018 Radiologic exam ches t single view ELVIS ALVARADO Start: 06-21-2018 Drug screen class list a ELVIS ALVARADO Start: 06-21-2018 Urnls dip stick/tabl et rgnt auto w/o microscopy ELVIS ALVARADO Start: 02-11-2017 Loop electrosurgical excision procedure of cervix Nini Martinez [employer]gr[employer] Work Phone: Diabetes mellitus screening Imad Asaad Other Hyperlipidemia screening Dona d Asaad Other LOOP electro excisio n of cervix Nini Wofl Comment on above: Completed: 2017 None (qualifier value) Amanda BERNARD Plan of Treatment Date Care Activity Detail Author Start: 01-04-2057 Pneumococcal 0-64 ye ars Vaccine (2 of 2 - PPSV23) Pneumococcal 0-64 years Vaccine (2 of 2 - PPSV23) [facility] Start: 01-04-2042 Zoster Vaccines (1 o f 2) Zoster Vaccines (1 of 2) [facility] Start: 04-10-2031 DTaP/Tdap/Td vaccine (3 - Td or Tdap) DTaP/Tdap/Td vaccine (3 - Td or Tdap) [facility] Start: 04-10-2031 DTaP/Tdap/Td vaccine (5 - Td or Tdap) DTaP/Tdap/Td vaccine (5 - Td or Tdap) [facility] Start: 04-10-2031 DTaP/Tdap/Td Vaccine s (4 - Td or Tdap) DTaP/Tdap/Td Vaccines (4 - Td or Tdap) [facility] Start: 11-07-2027 Screening for malign ant neoplasm of cervix [facility] Start: 11-06-2025 Screening for malign ant neoplasm of cervix Pap Smear [facility] Start: 04-28-2024 [facility] Start: 03-27-2024 Lipid panel Lipid Panel [facility] Start: 11-26-2023 End: 11-26-2023 [facility] Start: 11-26-2023 Hepatitis A virus Ab [Presence] in Serum by Immunoassay [facility] Start: 11-26-2023 Hepatitis B core antibody measurement [facility] Start: 11-26-2023 Hepatitis B virus surface Ab [Presence] in Serum [facility] Start: 10-13-2023 Influenza vaccination Influenza Vacc ine (#1) [facility] Start: 09-12-2023 Influenza vaccination Flu vaccine (# 1) [facility] Start: 08-10-2023 [facility] Start: 08-06-2023 Hospital admission [facility] Start: 03-17-2023 Bacteria identified in Urine by Culture [facility] Start: 03-12-2023 [facility] Start: 01-25-2023 Bacteria identified in Urine by Culture Urine Culture [facility] Start: 10-12-2022 COVID-19 Vaccine ( season) COVID-19 Vaccine ( season) [facility] Start: 10-12-2022 Influenza vaccination Influenza Vacc ine (#1) [facility] Start: 10-11-2022 [facility] Start: 06-10-2022 [facility] Start: 06-07-2022 Referral to Knot Picker Cloth [facility] Start: 06-07-2022 Sleep disorder assessment [facility] Start: 06-07-2022 Hospital admission [facility] Start: 04-03-2022 [facility] Start: 04-03-2022 Bacteria identified in Blood by Culture [facility] Start: 04-03-2022 Blood culture for bacteria, including anaerobic screen Blood Culture [facility] Start: 04-03-2022 [facility] Start: 01-04-2022 Screening for malign ant neoplasm of cervix [facility] [employer] [facility] Start: 10-12-2021 Influenza vaccination Flu vacc ine (Season Ended) [facility] Start: 09-11-2021 Influenza vaccination Flu vaccine (# 1) [facility] Start: 12-14-2020 COVID-19 Vaccine (3 - Booster for Pfizer series) COVID-19 Vaccine (3 - Booster for Pfizer series) [facility] Start: 10-12-2020 Influenza vaccination Flu vaccine (# 1) [facility] Start: 10-11-2020 FUV, Provider: Nini Wolf, Status: Pen, Time: 10:00 AM FUV, Provider: Nini Wolf, Status: Pen, Time: 10:00 AM -Gastroenterology [facility] [id number] [facility] Work Phone: Start: 10-11-2020 Patient encounter procedure [facility] Start: 09-08-2020 COVID-19 Vaccine (3 - Booster for Pfizer series) COVID-19 Vaccine (3 - Booster for Pfizer series) [facility] Start: 09-08-2020 COVID-19 Vaccine (3 - Pfizer series) COVID-19 Vaccine (3 - Pfizer series) [facility] Start: 10-13-2019 Influenza vaccination Flu vaccine (# 1) [place] Start: 12-22-2018 End: 12-22-2018 [facility] 12/22/2018 [facility] Parag Le, OCCUPATIONAL THERAPY SPECIALIST - DRUG 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 OFFICER [address] [place] [address] [phone] [facility] Start: 11-24-2018 End: 11-24-2018 [facility] Start: 10-12-2018 Influenza vaccination Flu vaccine (# 1) [place] Start: 12-14-2017 Pneumococcal 0-64 ye ars Vaccine (2 - PCV) Pneumococcal 0-64 years Vaccine (2 - PCV) [facility] Start: 12-14-2017 Pneumococcal 0-64 ye ars Vaccine (2 of 2 - PCV) Pneumococcal 0-64 years Vaccine (2 of 2 - PCV) [facility] Start: 01-04-2013 Cervical cancer screen Cervical canc er screen [place] Start: 01-04-2013 Screening for malign ant neoplasm of cervix [facility] Start: 01-04-2011 DTaP/Tdap/Td vaccine (2 - Tdap) DTaP/Tdap/Td vaccine (2 - Tdap) [place] Start: 01-04-2011 Hepatitis A Vaccines (1 of 2 - Risk 2-dose series) Hepatitis A Vaccines (1 of 2 - Risk 2-dose series) [facility] Start: 01-04-2011 Hepatitis B vaccine (1 of 3 - 19+ 3-dose series) Hepatitis B vaccine (1 of 3 - 19+ 3-dose series) [facility] Start: 01-04-2010 Hepatitis C screening Hepatitis C sc reen [facility] Start: 01-04-2007 HIV screen HIV screen [place], [place] Start: 01-04-2007 HIV screening HIV screen [facility] Start: 01-04-2007 HPV vaccine (1 - Fem faye 3-dose series) HPV vaccine (1 - Female 3-dose series) [place] Start: 01-04-2005 Varicella Vaccine (1 of 2 - 13+ 2-dose series) Varicella Vaccine (1 of 2 - 13+ 2-dose series) [facility] Start: 2004 Depression Monitoring Depression Mon itoring [facility] Start: 01-04-2003 DTaP/Tdap/Td vaccine (2 - Tdap) DTaP/Tdap/Td vaccine (2 - Tdap) [place] Start: 01-04-2003 HPV vaccine (1 - Fem faye 2-dose series) HPV vaccine (1 - Female 2-dose series) [place] Start: 10-13-1997 Polio vaccine (2 of 3 - 4-dose series) Polio vaccine (2 of 3 - 4-dose series) [facility] Start: 10-13-1997 Varicella vaccination Varicell a Vaccines (1 of 2 - 2-dose childhood series) [facility] [facility] Start: 01-04-1993 Varicella vaccine (1 of 2 - 2-dose childhood series) Varicella vaccine (1 of 2 - 2-dose childhood series) [facility] Start: 1992 Hepatitis B Vaccines (1 of 3 - 3-dose series) Hepatitis B Vaccines (1 of 3 - 3-dose series) [facility] Start: 1992 Hepatitis C screening Hepatitis C sc reen [facility] Start: 1992 Yearly Adult Physical Yearly Adult P hysical [facility] Albumin/Globulin ratio [facility] Albumin/Globulin ratio [facility] Anion gap measurement [facility] Anion gap measurement [facility] Bacteria identified in Urine by Culture [facility] Basophils [#/volume] in Blood by Automated count [facility] Basophils [#/volume] in Blood by Automated count [facility] Basophils [#/volume] in Blood by Automated count [facility] Basophils/100 leukocytes in Blood by Automated count [facility] Basophils/100 leukocytes in Blood by Automated count [facility] Basophils/100 leukocytes in Blood by Automated count [facility] EKG 12 Lead EKG 12 Lead ECG STAT 12/20/2018 9:33 PM EST [facility] [place], [place] EKG 12 Lead EKG 12 Lead ECG Routine 05/03/2021 9:49 AM EDT [facility] Work Phone: End: 12-14-2022 Electrocardiogram, 12-lead [facility] Service Area Work Phone: Comment on above: As needed until disc ontinued starting 12/14/2022 Once for 1 Occurrenc es starting 12/14/2022 until 12/14/2022 Eosinophils/100 leukocytes in Blood by Automated count [facility] Eosinophils/100 leukocytes in Blood by Automated count [facility] Eosinophils/100 leukocytes in Blood by Automated count [facility] Erythrocyte distribution width [Ratio] by Automated count [facility] Erythrocyte distribution width [Ratio] by Automated count [facility] Erythrocyte distribution width [Ratio] by Automated count [facility] Erythrocyte sedimentation rate by Photometric method [facility] Erythrocytes [#/volu me] in Blood [facility] Erythrocytes [#/volu me] in Blood [facility] Erythrocytes [#/volu me] in Blood [facility] Ethanol [Mass/volume ] in Serum or Plasma [facility] Ethanol [Mass/volume ] in Serum or Plasma [facility] Globulin [Mass/volum e] in Serum [facility] Globulin [Mass/volum e] in Serum [facility] Hematocrit [Volume Fraction] of Blood [facility] Hematocrit [Volume Fraction] of Blood [facility] Hematocrit [Volume Fraction] of Blood [facility] Hemoglobin [Mass/volume] in Blood [facility] Hemoglobin [Mass/volume] in Blood [facility] Hemoglobin [Mass/volume] in Blood [facility] Hepatitis A virus Ab [Presence] in Serum by Immunoassay [facility] Hepatitis A virus Ab [Presence] in Serum by Immunoassay [facility] Hepatitis B core antibody measurement [facility] Hepatitis B core antibody measurement [facility] Hepatitis B virus DN A [#/volume] (viral load) in Serum or Plasma by MOISES with probe detection [facility] Hepatitis B virus DN A [#/volume] (viral load) in Serum or Plasma by MOISES with probe detection [facility] Hepatitis B virus DN A [log units/volume] (viral load) in Serum or Plasma by MOISES with probe detection [facility] Hepatitis B virus DN A [log units/volume] (viral load) in Serum or Plasma by MOISES with probe detection [facility] Hepatitis B virus DN A [Units/volume] (viral load) in Serum or Plasma by MOISES with probe detection [facility] Hepatitis B virus DN A [Units/volume] (viral load) in Serum or Plasma by MOISES with probe detection [facility] Hepatitis B virus surface Ab [Presence] in Serum [facility] Hepatitis B virus surface Ab [Presence] in Serum [facility] Hepatitis B virus surface Ag [Presence] in Serum or Plasma by Immunoassay [facility] Hepatitis B virus surface Ag [Presence] in Serum or Plasma by Immunoassay [facility] Hepatitis C virus Ig G Ab [Presence] in Serum or Plasma by Immunoassay [facility] Hepatitis C virus RN A [log units/volume] (viral load) in Serum or Plasma by MOISES with probe detection [facility] Hepatitis C virus RN A [Units/volume] (viral load) in Serum or Plasma by MOISES with probe detection [facility] HIV 1+2 Ab+HIV1 p24 Ag [Presence] in Serum or Plasma by Immunoassay [facility] Leukocytes [#/volume ] corrected for nucleated erythrocytes in Blood by Automated coun [facility] Leukocytes [#/volume ] corrected for nucleated erythrocytes in Blood by Automated coun [facility] Leukocytes [#/volume ] corrected for nucleated erythrocytes in Blood by Automated coun [facility] Leukocytes [#/volume ] in Blood [facility] Leukocytes [#/volume ] in Blood [facility] Leukocytes [#/volume ] in Blood [facility] Lymphocytes [#/volum e] in Blood by Automated count [facility] Lymphocytes [#/volum e] in Blood by Automated count [facility] Lymphocytes [#/volum e] in Blood by Automated count [facility] Lymphocytes/100 leukocytes in Blood by Automated count [facility] Lymphocytes/100 leukocytes in Blood by Automated count [facility] Lymphocytes/100 leukocytes in Blood by Automated count [facility] MCH [Entitic mass] b y Automated count [facility] MCH [Entitic mass] b y Automated count [facility] MCH [Entitic mass] b y Automated count [facility] MCHC [Mass/volume] b y Automated count [facility] MCHC [Mass/volume] b y Automated count [facility] MCHC [Mass/volume] b y Automated count [facility] MCV [Entitic volume] by Automated count [facility] MCV [Entitic volume] by Automated count [facility] MCV [Entitic volume] by Automated count [facility] Measurement of Hepatitis delta virus antibody [facility] Monocytes [#/volume] in Blood by Automated count [facility] Monocytes [#/volume] in Blood by Automated count [facility] Monocytes [#/volume] in Blood by Automated count [facility] Monocytes/100 leukocytes in Blood by Automated count [facility] Monocytes/100 leukocytes in Blood by Automated count [facility] Monocytes/100 leukocytes in Blood by Automated count [facility] Neutrophils [#/volum e] in Blood by Automated count [facility] Neutrophils [#/volum e] in Blood by Automated count [facility] Neutrophils [#/volum e] in Blood by Automated count [facility] Neutrophils/100 leukocytes in Blood by Automated count [facility] Neutrophils/100 leukocytes in Blood by Automated count [facility] Neutrophils/100 leukocytes in Blood by Automated count [facility] Nucleated erythrocyt es [Presence] in Blood by Automated count [facility] Nucleated erythrocyt es [Presence] in Blood by Automated count [facility] Nucleated erythrocyt es [Presence] in Blood by Automated count [facility] Patient Education [facility] Work Phone: Patient referral [facility] Work Phone: Platelet mean volume [Entitic volume] in Blood by Automated count [facility] Platelet mean volume [Entitic volume] in Blood by Automated count [facility] Platelet mean volume [Entitic volume] in Blood by Automated count [facility] Platelets [#/volume] in Blood [facility] Platelets [#/volume] in Blood [facility] Platelets [#/volume] in Blood [facility] US Liver [facility] End: 11-01-2018 VL DUP UPPER EXTREMITY VENOUS LEFT VL DUP UPPER EXTREMITY VENOUS LEFT Imaging Routine Once for 1 Occurrences starting 11/01/2018 until 11/01/2018 [facility] [place], [place] Comment on above: Once for 1 Occurrenc es starting 11/01/2018 until 11/01/2018 [facility] NEGATED: Highlighted row has been ruled out! Planned Goals not documented [facility] Work Phone: Immunizations Immunization Date Immunization Notes Care Provider Fa cility 04-01-2022 tetanus toxoid, redu perry diphtheria toxoid, and acellular pertussis vaccine, adsorbed OCCUPATIONAL THERAPY SPECIALIST Amanda Robjulio Work Phone: [facility] 04-10-2021 tetanus toxoid, redu perry diphtheria toxoid, and acellular pertussis vaccine, adsorbed OCCUPATIONAL THERAPY SPECIALIST Amanda Robuck Work Phone: [facility] 07-14-2020 COVID-19 mRNA, Comirnaty (Pfizer) OCCUPATIONAL THERAPY SPECIALIST Amanda Robjulio Work Phone: [facility] 06-23-2020 COVID-19 mRNA, Comirnaty (Pfizer) OCCUPATIONAL THERAPY SPECIALIST Amanda Robjulio Work Phone: [facility] 11-19-2017 influenza, seasonal, injectable; Translations: [Fluzone Quadravalent] Amanda BERNARD [facility] Comment on above: Reason for Medicatio n: Other (see comment) 11-19-2017 influenza virus vaccine, unspecified formulation Amy Steele MD Work Phone: [facility] Work Phone: 12-14-2016 pneumococcal polysaccharide vaccine, 23 valent Mundo Guzman [facility] 05-01-2016 tetanus toxoid, redu perry diphtheria toxoid, and acellular pertussis vaccine, adsorbed Amanda ROBUCK [facility] 04-23-2012 influenza, seasonal, injectable Amanda ROBUCK [facility] 04-23-2012 tetanus toxoid, redu perry diphtheria toxoid, and acellular pertussis vaccine, adsorbed Amanda ROBUCK [facility] Comment on above: Reason for Medicatio n: Other (see comment) 09-15-1997 DTaP, unspecified formulation Amanda ROBUCK [facility] 09-15-1997 measles, mumps and rubella virus vaccine Amanda ROBUCK [facility] NEGATED: Highlighted row has not occurred!11-30-2022 influenza virus vaccine, unspecified formulation CARRIE PEREZ [facility] NEGATED: Highlighted row has not occurred!11-30-2022 SARS-CoV-2 mRNA (tozinameran 5y-11y) vaccine [facility] NEGATED: Highlighted row has not occurred!03-28-2022 influenza virus vaccine, unspecified formulation Amanda ROBJULIO [facility] Payers Date Payer Category Payer Unknown [id number] 2022 Self-pay [id number] 2018 Medicaid [id number] 2018 Medicaid [facility] [employer] MEDICAID [place] [id number] 2018-Present [address] [place] [address] [id number]. [id number] 2018 Unknown 2016 Unknown [facility] MEDICAID xxxxxxxxxxx 2016-Present [phone] CLAIMS DEPARTMENT [address] [place] [address] xxxxxxxxxxx [id number]. [id number] 1992 Unknown [id number] 2.16.840.1.565925.3.579.2.182 1992 Unknown [id number] 2.16.840.1.966092.3.579.2.185 1992 Unknown [id number] 2.16.840.1.871405.3.579.2.174 1992 Unknown [id number] 2.16.840.1.606257.3.579.2.174 1992 Unknown [id number] 2.16.840.1.667423.3.579.2.196 1992 Unknown [id number] 2.16.840.1.311299.3.579.2.177 1992 Unknown [id number] 2.16.840.1.712097.3.579.2.204 1992 Unknown [id number] 2.16.840.1.551783.3.579.2.593 1992 Unknown [id number] 2.16.840.1.409036.3.579.2.593 1992 Unknown [id number] 2.16.840.1.106532.3.579.2.176 1992 Unknown [id number] 2.16.840.1.852849.3.579.2.175 1992 Unknown [id number] 2.16.840.1.948605.3.579.2.175 1992 Unknown [id number] 2.16.840.1.854699.3.579.2.1243 1992 Unknown [id number] 2.16.840.1.294569.3.579.2 1992 Unknown [id number] 2.16.840.1.632352.3.579.2 1992 Unknown [id number] 2.16.840.1.225781.3.579.2 1992 Unknown [id number] 2.16.840.1.651685.3.579.2 1992 Unknown [id number] 2.16.840.1.370614.3.579.2 1992 Unknown [id number] 2.16.840.1.990677.3.579.2 1992 Unknown [id number] 2.16.840.1.185639.3.579. 1992 Unknown [id number] 2.16.840.1.198835.3.579.2 1992 Unknown [id number] 2.16.840.1.950442.3.579.2 1992 Unknown [id number] 2.16.840.1.277026.3.579.2 1992 Unknown [id number] 2.16.840.1.554517.3.579.2 1992 Unknown [id number] 2.16.840.1.446870.3.579.2 1992 Unknown [id number] 2.16.840.1.817524.3.579.2 1992 Unknown [id number] 2.16.840.1.044511.3.579.2 1992 Unknown [id number] 2.16.840.1.163849.3.579.2 1992 Unknown [id number] 2.16.840.1.561512.3.579.2 1992 Unknown [id number] 2.16.840.1.932079.3.579.2. 1992 Unknown [id number] 2.16.840.1.909400.3.579.2 1992 Unknown [id number] 2.16.840.1.631895.3.579.2 1992 Unknown [id number] 2.16.840.1.279461.3.579.2 1992 Unknown [id number] 2.16.840.1.846625.3.579.2 1992 Unknown [id number] 2.16.840.1.156081.3.579.2 1992 Unknown [id number] 2.16.840.1.074730.3.579.2 1992 Unknown [id number] 2.16.840.1.899770.3.579.2 1992 Unknown [id number] 2.16.840.1.486155.3.579.2 1992 Unknown [id number] 2.16.840.1.032304.3.579.2 1992 Unknown [id number] 2.16.840.1.850285.3.579.2 1992 Unknown [id number] 2.16.840.1.122833.3.579.2 1992 Unknown [id number] 2.16.840.1.365223.3.579.2 1992 Unknown [id number] 2.16.840.1.684290.3.579.2 1992 Unknown [id number] 2.16.840.1.338475.3.579.2 1992 Unknown [id number] 2.16.840.1.176886.3.579.2 1992 Unknown [id number] 2.16.840.1.256617.3.579.2. 1992 Unknown [id number] 2.16.840.1.453096.3.579.2 1992 Unknown [id number] 2.16.840.1.740377.3.579.2 1992 Unknown [id number] 2.16.840.1.955311.3.579.2 1992 Unknown [id number] 2.16.840.1.356828.3.579.2 1992 Unknown [id number] 2.16.840.1.340544.3.579.2 1992 Unknown [id number] 2.16.840.1.687673.3.579.2 1992 Unknown [id number] 2.16.840.1.355478.3.579.2 1992 Unknown [id number] 2.16.840.1.474998.3.579.2 1992 Unknown [id number] 2.16.840.1.219982.3.579.2 1992 Unknown [id number] 2.16.840.1.449099.3.579.2 1992 Unknown [id number] 2.16.840.1.191562.3.579.2 1992 Unknown [id number] 2.16.840.1.849771.3.579.2. 1992 Unknown [id number] 2.16.840.1.041464.3.579.2 1992 Unknown [id number] 2.16.840.1.985536.3.579.2.173 1992 Unknown [id number] 2.16.840.1.398856.3.579.2.727 1992 Unknown [id number] 2.16.840.1.108405.3.579.2. 1992 Unknown [id number] 2.16.840.1.550380.3.579.2. 1992 Unknown [id number] 2.16.840.1.128343.3.579.2. 1992 Unknown [id number] 2.16.840.1.160601.3.579.2. 1992 Unknown [id number] 2.16.840.1.583002.3.579.2. 1992 Unknown [id number] 2.16.840.1.067942.3.579.2 1992 Unknown [id number] 2.16.840.1.366822.3.579.2. 1992 Unknown [id number] 2.16.840.1.054281.3.579.2. 1992 Unknown [id number] 2.16.840.1.719790.3.579.2. 1992 Unknown [id number] 2.16.840.1.777907.3.579.2 1992 Unknown [id number] 2.16.840.1.535665.3.579.2. 1992 Unknown [id number] 2.16.840.1.837788.3.579.2. 1992 Unknown [id number] 2.16.840.1.867583.3.579.2.594 1959 Unknown [id number] Medicare Medicare [id number] Unknown [facility] Program [id number] Unknown [id number] 2.16.840.1.653373.3.579.2.531 Unknown [id number] 2.16.840.1.486158.3.579.2.531 Unknown [id number] 2.16.840.1.356739.3.579.2.531 Unknown [id number] 2.16.840.1.097226.3.579.2.531 Unknown [id number] 2.16.840.1.785674.3.579.2.531 Unknown [id number] 2.16.840.1.289969.3.579.2.531 Social History Date Type Detail Facility Start: 11-01-2018 End: 03-12-2022 Tobacco smoking status NHIS Current every day smoker [place] History of tobacco use Cigarette Smoker [place] Start: 05-14-2018 End: 11-01-2018 Cigarettes smoked current (pack per day) - Reported ARCHANA MAYNARD [employer] Phone: Comment on above: 4 [employer]; Start: 05-14-2018 End: 11-01-2018 Alcohol intake No [place] Start: 1990 Sex Assigned At Female M [place] Start: 03-10-2020 End: 03-12-2022 Tobacco use and exposure Never used [place] Start: 03-10-2020 End: 03-13-2022 Alcohol intake Current drinker of alcohol (finding) [place] Start: 04-23-2021 End: 12-14-2022 Exposure to SARS-CoV-2 (event) Not sure [place] Start: 12-20-2018 Alcohol Comment 8-12 beers karan ly plus liquor at times [place] Tobacco smoking consumption unknown [facility] Start: 03-14-2021 End: 05-03-2021 Alcohol intake Ex-drinker (finding) [employer] Phone: Start: 05-03-2021 History SDOH Alcohol Comment currently at [facility] for alcohol. last drink was 12 days ago [employer] Phone: Start: 07-04-2021 End: 07-14-2023 Tobacco smoking status Heavy tobacco smoker (finding) [facility] Tobacco smoking status Never [facility] Start: 02-19-2022 End: 01-08-2023 Tobacco smoking status NHIS Never smoked tobacco (finding) [facility] Start: 03-09-2022 End: 04-28-2024 Tobacco smoking status NHIS Smoker (finding) [facility] Start: 03-12-2022 Alcohol Comment drank 02/15 toda y 03/12/2022---currently at [facility] for alcohol. last drink was 12 days ago [employer] Work Phone: Start: 03-13-2022 History SDOH Alcohol Frequency 5 [employer] Work Phone: Start: 1990 Sex Assigned At Not on file [facility] Work Phone: Start: 12-30-2023 End: 04-28-2024 Sex Female (finding) [facility] How often to you hav e a drink containing alcohol? 4 or more times a week [employer] Work Phone: How many standard drinks containing alcohol do you have on a typical day? 10 or more [employer] How often do you hav e 6 or more drinks on 1 occasion? Daily or almost daily [employer] Start: 08-27-2018 Gender identity Identifies as female gender (finding) [employer] Start: 08-27-2018 Sexual orientation Heterosexual (fin ding) [employer] NEGATED: Highlighted row - - -[facility] Work Phone: NEGATED: Highlighted row [facility] Goals Date Patient Goal Desired Activity /State Functional Status Date Assessment Result Facility 01-11-2024 Functional Status N/A [facility] 01-11-2024 Functional Status [facility] 12-05-2023 Functional Status N/A [facility] 11-27-2023 Functional Status N/A [facility] 08-29-2023 Functional Status N/A [facility] 08-10-2023 Functional status Patient at Baseline [facility] Work Phone: 08-06-2023 Functional Status N/A [facility] 07-14-2023 Functional Status N/A [facility] 07-05-2023 Functional Status N/A [facility] 07-03-2023 Functional Status N/A [facility] 06-30-2023 Functional Status N/A [facility] 06-17-2023 Functional Status N/A [facility] 06-03-2023 Functional Status N/A [facility] 04-19-2023 Functional Status N/A [facility] 2023 Functional Status N/A [facility] 2023 Functional Status [facility] 01-02-2023 Functional Status N/A [facility] 12-10-2022 Functional Status N/A [facility] 12-10-2022 Functional Status N/A [facility] 11-30-2022 Functional Status N/A [facility] 11-04-2022 Functional Status N/A [facility] 08-17-2022 Functional Status No [facility] 08-16-2022 Functional Status N/A [facility] 08-13-2022 Functional Status N/A [facility] 06-10-2022 Functional status Patient at Baseline [facility] Work Phone: 07-26-2021 Functional Status N/A [facility] NEGATED: Highlighted row Functional performance Functional status health issues are not documented Disease [facility] Work Phone: Mental Status Date Assessment Result Facility 08-10-2023 Cognitive function Cognitive Sta tus Patient at Baseline [facility] Work Phone: 06-10-2022 Cognitive function Cognitive Sta tus Patient at Baseline [facility] Work Phone: NEGATED: Highlighted row Cognitive function [Interpretation] Cognitive status health issues are not documented Disease [facility] Work Phone: Clinical Notes 02-05-2021 to 01-13-2024 Note Date & Type Note Facility 01-13-2024 Evaluation + Plan note Extrac jose from: Title:Discharge Note Author:Endy Raphael DO Date:01/13/24 Discharged to - Rehabilitation unit Transported by, Anticipated - Family Prescriptions No active prescription medications Home busPIRone 15 mg Tab, 15 mg= 1 tab(s), Oral, BID FLUoxetine 10 mg Cap, 10 mg= 1 cap(s), Oral, Daily folic acid 1 mg Tab, 1 mg= 1 tab(s), Oral, Daily gabapentin 800 mg Tab, 800 mg= 1 tab(s), Oral, TID Multi Vitamins oral tablet, 1 tab(s), Oral, Daily propranolol 10 mg Tab, 10 mg= 1 tab(s), Oral, Daily topiramate 25 mg Tab, 25 mg= 1 tab(s), Oral, Daily ziprasidone 20 mg Cap, 20 mg= 1 cap(s), Oral, BID With When Contact Information Attila SINGLETARY, SARA Fuller 01/15/2024 11:00 AM EST [address] [place] [address]- Additional Instructions: Call for followup appointment Yessenia SINGLETARY, Megan Ballesteros, GAS, MED Within 2 to 4 weeks [address], [address] [place] [address]- [phone] Additional Instructions: Call for followup appointment lets get real Additional Instructions: Alcohol Misuse and Dependence Information, Adult Finding Treatment for Addiction Extracted from: Title:PINK SLIP Author:Dina HARRIS Date:01/12/24 Pt is medically stable. Cata ls and labs are normal. Alcohol level is normal today. pt is alert, cooperative. Denies suicidal ideations currently however was adamant yesterday i want it to be over I just want to . Pt would benefit for inpt psych stay as she has not been taking pych meds as prescribed and has been drinking etoh and using benzos again. Pt pink slipped and will await mental health eval, recommendations to proceed with further plan. Extracted from: Title:APSO Note Author:Dina HARRIS Date:01/12/24 PLAN: 1. Acute alcoholic intoxication in alcoholism (F10.229: Alcohol dependence with intoxication, unspecified) Ethanol level is 510. CIWA protocol to monitor for withdrawal.--more oriented but still w/tremors today. IVF-off taking PO today. Folic Acid, Thiamine, MVI Continue Librium Ativan per CIWA 2. Suicidal ideation (R45.851: Suicidal ideations) On admission she stated she wanted to but denied plan.---today states she is not suicidal Will pink slip and contact [address] [place] [address] once medically stable. Sitter at all times w/pt. 3. History of substance use (Z87.898: Personal history of other specified conditions) substance abuse w/ accidental heroin overdose in 08/01/23 which required inpt stay at [facility] [place] [facility]. pt currently smokes, smokes marijuana--tox screen negative for cannabis. Urine tx screen positive for Benzos. Manager Stylist on cessation. 4. Elevated liver enzymes (R74.8: Abnormal levels of other serum enzymes) Alk phos, ALT, and AST are elevated from most recent lab work likely due to chronic alcohol use IVF Trend labs. 5. of parent (Z63.4: Disappearance and of family member) Pt w/recent of father 2017 states I haven't been right since . Refer to [address] [place] [address] once medically stable. 6. Bipolar depression (F31.9: Bipolar disorder, unspecified) States she has not been compliant with Prozac. Med rec pending. Will resume meds once clarified. DVT Prophylaxis: Heparin sq Disposition: inpt status will require >2 midnight stays for further work up and treatment of above. Extracted from: Title:Admission H & P Author:Evaristo HARRIS Date:01/11/24 PLAN: 1. Acute alcoholic intoxication in alcoholism (F10.229: Alcohol dependence with intoxication, unspecified) Ethanol level is 510. CIWA protocol to monitor for withdrawal. IVF Folic Acid, Thiamine, MVI Start Librium 2. Suicidal ideation (R45.851: Suicidal ideations) States she wants to but denies plan. Will pink slip and contact [address] [place] [address] once medically stable. Sitter at all times w/pt. 3. History of substance use (Z87.898: Personal history of other specified conditions) substance abuse w/ accidental heroin overdose in 08/01/23 which required inpt stay at [facility] [place] [place] [facility]. pt currently smokes, smokes marijuana--tox screen negative for cannabis. Urine tx screen positive for Benzos. Manager Stylist on cessation. 4. Elevated liver enzymes (R74.8: Abnormal levels of other serum enzymes) Alk phos, ALT, and AST are elevated from most recent lab work likely due to chronic alcohol use IVF Trend labs. 5. of parent (Z63.4: Disappearance and of family member) Pt w/recent of father 2016 states I haven't been right since . Refer to [address] [place] [address] once medically stable. 6. Bipolar depression (F31.9: Bipolar disorder, unspecified) States she has not been compliant with Prozac. Med rec pending. Will resume meds once clarified. DVT Prophylaxis: Heparin sq Disposition: inpt status will require >2 midnight stays for further work up and treatment of above. Orders: Al hydroxide/Mg hydroxide/simethicone, 30 mL, Susp-Oral, Oral, q6hr PRN Indigestion, Routine, Start date 01/11/24 13:17:00 EST chlordiazepoxide, 5 mg = 1 cap(s), Cap, Oral, q8hr, Routine, Start date 01/11/24 14:00:00 EST folic acid, 1 mg = 1 tab(s), Tab, Oral, Daily, Routine, Start date 01/12/24 9:00:00 EST, 01/11/24 13:15:00 EST hydrALAZINE, 10 mg = 0.5 mL, Injection, IV Push, q6hr PRN Other (see comment), Routine, Start date 01/11/24 13:17:00 EST, 01/11/24 13:17:00 EST lorazepam, 1 mg = 0.5 mL, Injection, IV Push, q6hr PRN Anxiety, Routine, Start date 01/11/24 13:15:00 EST, 01/11/24 13:15:00 EST lorazepam, 1 mg = 0.5 mL, Injection, IV Push, q1hr PRN Anxiety, Routine, Start date 01/11/24 13:15:00 EST, 01/11/24 13:15:00 EST multivitamin, 1 tab(s), Tab, Oral, Daily, Routine, Start date 01/12/24 9:00:00 EST nicotine, 21 mg, 1 patch(es), Patch-ER, TransDermal, Daily, Routine, Start date 01/12/24 9:00:00 EST ondansetron, 4 mg = 2 mL, Injection, IV Push, q6hr PRN Nausea, Routine, Start date 01/11/24 13:17:00 EST, 01/11/24 13:17:00 EST Sodium Chloride 0.9% intravenous solution 1,000 mL, 1,000 mL, IV, 125 mL/hr, for 1 dose(s), Stop date 01/11/24 21:14:00 EST, Routine, Start date 01/11/24 13:15:00 EST, 8 hour(s), Total volume (mL): 1,000, 74 kg, 1.8, m2 thiamine, 100 mg = 1 tab(s), Tab, Oral, Daily, Routine, Start date 01/12/24 9:00:00 EST, 01/11/24 13:15:00 EST Ambulate with Assistance Clinical [place] Withdrawal Assessment Clinical [place] Withdrawal Assessment Clinical [place] Withdrawal Assessment Clinical [place] Withdrawal Assessment Communication Order Physician to Nursing Intake and Output Notify Provider Vital Signs Notify Provider Vital Signs Precautions Pulse Oximetry Regular Diet Resuscitation Status - Full Sitter Vital Signs Vital Signs Vital Signs Vital Signs Vital Signs Weight Extracted from: Title:ED Note Author:Gregorio HARO, Leann Garrett te:01/11/24 1. Acute alcoholic intoxicat ion in alcoholism (F10.229: Alcohol dependence with intoxication, unspecified) 2. Suicidal ideation (R45.851: Suicidal ideations) 3. History of substance use (Z87.898: Personal history of other specified conditions) 4. Elevated liver enzymes (R74.8: Abnormal levels of other serum enzymes) Orders: ondansetron, 4 mg = 2 mL, Injection, IV Push, Once, Stop date 01/11/24 13:07:00 EST, STAT, Start date 01/11/24 13:07:00 EST, 01/11/24 13:07:00 EST Beta hCG Qual CBC w/ Auto Diff Communication Order Comprehensive Metabolic Panel Consult to Mental Health Drug Screen Urine ECG 12 Lead Adult ED Physician consult Hospitalist for continued care eGFR Ethanol Level Extra Blue Tube Path. Review UA with Cult Rflx Diagnostic Tests Pending * Path. Review 01/11/24 [facility] 12-02-2024 Hospital Discharge instructions Patient Education 01/13/2024 10:45:02 Alcohol Misuse and Dependence Information, Adult Alcohol Misuse and Dependence Information, Adult Alcohol is a widely available drug and people choose to drink alcohol in different amounts. Alcoholmisuse and dependence can have a negative effect on your life. Alcohol misuse is when you use alcohol too much or too often. You may have a hard time setting a limit on the amount you drink. Alcohol dependence is when you use alcohol consistently for a period of time, and your body changesas a result. Alcohol dependence can make it hard for you to stop drinking because you may start to feel sick or different when you do not drink alcohol. These symptoms are known as withdrawal. People who drink alcohol very often and in large amounts, may develop what is called an alcohol usedisorder. How can alcohol misuse and dependence affect me? Drinking too much can lead to addiction. You may feel like you need alcohol [...] infections. Brain or nerve damage. Depression. Early , also called premature . If you are careless or you crave alcohol, it is easy to drink more than your body can handle (overdose). Alcohol overdose is a serious situation that requires hospitalization. It may lead to permanent injuries or . What can increase my risk? Having a family history of alcohol misuse. Having depression or other mental health conditions. Beginning to drink at an early age. Binge drinking often. Experiencing trauma, stress, and an unstable home life during childhood. Spending time with people who drink often. What actions can I take to prevent alcohol misuse and dependence? Do not drink alcohol if: ?Your health care provider tells you not to drink. ?You are , may be , or are planning to become . If you drink alcohol: ?Limit how much you have to: ?0 1 drink a day for women who are not . ?0 2 drinks a day for men. ?Know how much alcohol is in your drink. In the [place] one drink equals one 12 oz bottle of beer (355 mL), one 5 oz glass of wine (148 mL), or one 1 oz glass of hard liquor (44 mL). If you think you have an alcohol dependency problem, decide to stop drinking. This can be very hardto do if you are used to frequently drinking alcohol. If you begin to have withdrawal symptoms, talk with your health care provider or a person that you trust. These symptoms may include anxiety, shaky hands, headache, nausea, sweating, or not being able to sleep. Choose to drink nonalcoholic beverages in social gatherings and places where there may be alcohol. Activity Spend more time on activities that you enjoy that do not involve alcohol, like hobbies or exercise. Find healthy ways to cope with stress, such as meditation or spending time with people you care [...] group for people who struggle with alcohol misuse and dependence. Where to find support Your health care provider. SMART Recovery: smartrecovery.org Local treatment centers or chemical dependency counselors. Local AA groups in your community: aa.org Where to find more information Centers for Disease Control and Prevention: cdc.gov National [place] on Alcohol Abuse and Alcoholism: niaaa.nih.gov Alcoholics Anonymous (AA): aa.org Contact a health care provider if: You drank more or for longer than you intended on more than one occasion. You often drink to the point of vomiting or passing out. You have problems in your life due [...] Get help right away if: You have serious withdrawal symptoms, including: ?Confusion. ?Racing heart. ?High blood pressure. ?Fever. These symptoms may be an emergency. Get [...] the National Suicide Prevention Lifeline at or 580. This is open 24 hours a day. Text the Crisis Text Line at 993926. Summary Alcohol misuse and dependence can have a negative effect [...] friend, or a therapist, or go to a support group. This information is not intended to replace advice given to you by your health care provider. Make sure you discuss any questions you have with your health care provider. Document Revised: 04/04/2022 Document Reviewed: 04/04/2022 [employer] Patient Education 2023 [employer] 01/13/2024 10:44:58 Finding Treatment for Addiction Finding Treatment for Addiction Addiction is a complex disease of the brain that causes an uncontrollable (compulsive) need for: A substance. This includes alcohol, drugs, or prescription medicines, such as painkillers. An activity or behavior, such as gambling or shopping. What are the risks? Addiction is a progressive disease. Without treatment, addiction can get worse. Living with addiction puts you at higher risk for injury, poor health, loss of employment, loss of money, and even . Addiction changes the way your brain works. Because of this change: The need for the medicine, drug, or activity can become so strong that you think about it all the time. Getting more and more of your addiction becomes the most important thing to you. You may find yourself leaving other activities and relationships to pursue your addiction. You can become physically dependent on a substance. Your health, behavior, emotions, and relationships can change for the worse. How to select a treatment program Know your options There may be options for treatment programs and plans based on your addiction, condition, needs, and preferences. No single treatment is right for everyone. Treatment programs can be: ?Outpatient. You live at home and go to work or school, but you go to a clinic for treatment. ?Inpatient. You live and sleep at the program facility during treatment. Programs may include: ?Medicine. You may need medicine to treat the addiction itself or to treat anxiety or depression. ?Counseling and behavior therapy. This can help individuals and families behave in healthier ways and relate more effectively. ?Support groups. Confidential group therapy, such as a 12-step program, can help individuals and families during treatment and recovery. ?A combination of education, counseling, and a 12-step, spirituality-based approach. Think about your needs Think about your individual requirements when selecting a treatment program. Ask about: The overall approach to treatment. ?Some programs are strictly 12-step programs. Some have a more flexible approach. ?Programs may differ in length of stay, setting, and size. ?Some programs include your family in your treatment plan. Support may be offered to them throughout the treatment process, as well as instructions for them when you are discharged. ?You may continue to receive support after you have left the program. The types of medical services that are offered. Find out if the program: ?Offers specific treatment for your particular addiction. ?Meets all of your needs, including physical and cultural needs. ?Includes any medicines you might need. ?Offers mental health counseling as part of your treatment. ?Offers the 12-step meetings at the center, or if transport is available for you to attend meetingsat other locations. The cost and types of insurance that are accepted. ?Some programs are sponsored by the government. They support people in treatment who do not have private insurance. ?If you do not have insurance, or if you choose to attend a program that does not accept your insurance, call the treatment center. Tell them your financial needs and ask whether a payment plan can be set up. ?There are also organizations that will help you find the resources for treatment. You can find them online by searching for treatment for addiction. If the program is certified by the appropriate government agency. Follow these instructions at home: Find supportive people who will help you stay away from your addiction and stay sober. Do not use the substance or engage in the activity. If you have been through treatment: ?Follow your plan. The plan is usually developed by you and your health care provider during treatment. These discussions are confidential. ?Go to meetings with other people in recovery. ?Avoid people, situations, and things that lead you to do the things you are addicted to (triggers). Where to find more information Recovered: recovered.org Substance Abuse and Mental Health Services Administration (SAMHSA): findtreatment.samhsa.gov National [place] on Problem Gambling: www.ncpgambling.org Get help right away if: You have serious thoughts about hurting yourself or others. Get help right away if you feel like you may hurt yourself or others, or have thoughts about takingyour own life. Go to your nearest emergency room or: Call 911. Call the National Suicide Prevention Lifeline at or 611 in the [place] This is open 24hours a day. Text the Crisis Text Line at 167297. Summary Addiction changes the way your brain works. These changes cause a desire to repeat and increase theuse of the substance or behavior. Addiction is a progressive disease. Without treatment, addiction can get worse. Living with addiction puts you at higher risk for injury, poor health, loss of employment, loss of money, and even . There may be options for treatment programs and plans based on your addiction, condition, needs, and preferences. No single treatment is right for everyone. Your health care provider can help you find the right treatment. These discussions are confidential. This information is not intended to replace advice given to you by your health care provider. Make sure you discuss any questions you have with your health care provider. Document Revised: 08/24/2021 Document Reviewed: 08/02/2021 [employer] Patient Education 2023 [place]. Follow Up Care 01/11/2024 09:49:11 With:Yessenia SINGLETARY, AMBER Potter [facility] Address: [address], [address] [place] [address]- [phone] When:2 to 4 weeks Comments:Call for followup appointment With:Attila SINGLETARY, SARA Fuller Address: [address] [place] [address]- When:01/15/2024 11:00:00 Comments:Call for followup appointment With:cynthia espinoza real Address: When: Unknown [facility] 12-02-2024 NoteDischarge Summary Admission and Discharge Information Admit Date/Time:01/11/2024 13:10 Admitting Physician - Pavel Ortega DO Admitting Diagnoses: Discharge Order Date Discharge Patient - Ordered -- 01/13/24 10:49:00 EST, d/c home with mother Discharge Diagnoses 1. Acute alcoholic intoxication in alcoholism, 01/11/2024 2. Suicidal ideation, 01/11/2024 3. History of substance use, 01/11/2024 4. Elevated liver enzymes, 01/11/2024 5. of parent, 01/11/2024 6. Bipolar depression, 01/11/2024 Alcohol intoxication, 01/11/2024 Psychiatric screening exam, 01/11/2024 Suicidal ideation, 01/11/2024 Procedure History None. Hospital Course 34-year-old female with past medical history of alcohol abuse, bipolar disorder, hepatitis B, hepatitis C, tobacco abuse, substance abuse, presented to ER on 01/10 due to alcohol intoxication and suicidal ideation. Per ED report EMS was called due to patient was intoxicated with suicidal ideation and mother was concerned because patient was seeing things. Patient states that she has been dealing with a lot of stress with passing with her father. Patient states she drinks approximately 1 large bottle of vodka daily. Patient had drank her last alcoholic beverage prior to arrival. On admission patient was repeatedly saying I just want to . Denies any previous suicide attempts. Patient was recently admitted 08/01/2023 after substance abuse overdose and was admitted to [address] In ED patient was found to have EtOH of 510. Patient was started on IV fluids, folic acid, thiamine, multivitamin. Patient had mildly elevated LFTs. Urine tox screen positive for benzos. CXR negative. Patient was admitted for further workup and treatment. [facility] was contacted and evaluated patient and once patient sobered up, patient was thinking more clearly. Patient denied any suicidal thoughts at that time. [facility] made safe plan with patient as well as mother. Patient called [address] and was accepted there. Patient will go home to shower and get some things and say goodbye to her sonand go there later today. On the day of discharge patient denied any suicidal homicidal thoughts. Patient had a plan. Mother came and picked patient up to go home to get things and then will go to treatment house. Patient stable at discharge. Medication changes None Follow-up appointments Psychiatrist as instructed Follow through with alcohol rehab PCP as needed Follow-up with GI in 2 to 4 weeks to monitor elevated LFTs Discharge time 35 minutes which included extensive conversation with patient as well as mother about diagnosis and treatment plan. Along with communication with consultants, nursing, case management. Services Consulted Consult to Mental Health - Ordered -- 01/11/24 10:03:00 EST, SI, Consult and Co-manage Consult to [employer] ([employer] Consult) - Ordered -- 01/11/24 14:29:46 EST Physical Exam Vitals & Measurements T: 36.8 ???C(Axillary) TMIN: 36.4 ???C(Axillary) TMAX: 36.8 ???C(Axillary) HR: 65(Monitored) RR: 15BP: 158/109 SpO2: 97% WT: 80.6 kg General: NAD Skin: Warm, dry Head: No trauma, normocephalic Neck: Trachea midline, supple, negative for JVD Eye: Conjunctive are clear, clear sclera , EOMI ENMT: oral mucosa moist, no lesions or edema nose or external ears Cardiovascular: Regular rate and rhythm, S1-S2 present, negative for murmurs rubs or gallops Respiratory: Lungs clear to auscultation, bilateral symmetric movement, negative for wheezes rales or rhonchi Chest wall: no deformity. Gastrointestinal: Abdomen soft, bowel sounds present, nontender to palpation Back: No tenderness Extremities: Range of motion intact, no edema Neurological: awake, alert, speech normal, cranial nerves II through XII intact, no sensory defects, alert and oriented x3 Psychiatric: cooperative, affect appropriate for age, pleasant, patient denies any suicidal ideation or plan, patient denies any homicidal ideation or plan Tests Performed Path. Review -- Results Pending -- Please visit your patient portal for your results or contact your primary care physician. Discharge Plan Discharge Disposition Discharged to - Rehabilitation unit Transported by, Anticipated - Family Discharge Medication List Prescriptions No active prescription medications Home busPIRone 15 mg Tab, 15 mg= 1 tab(s), Oral, BID FLUoxetine 10 mg Cap, 10 mg= 1 cap(s), Oral, Daily folic acid 1 mg Tab, 1 mg= 1 tab(s), Oral, Daily gabapentin 800 mg Tab, 800 mg= 1 tab(s), Oral, TID Multi Vitamins oral tablet, 1 tab(s), Oral, Daily propranolol 10 mg Tab, 10 mg= 1 tab(s), Oral, Daily topiramate 25 mg Tab, 25 mg= 1 tab(s), Oral, Daily ziprasidone 20 mg Cap, 20 mg= 1 cap(s), Oral, BID Follow-up With When Contact Information Attila SINGLETARY, SARA Fuller 01/15/2024 11:00 AM EST [address] [place] [address]- Additional Instructions: Call for followup appo (more content not included)... [facility] CenterComment on above:Result Comment: Electronically Signed By: Endy Raphael DO.ella\Date and Time Signed: 01/13/24 11:20 EST 01-13-2024 NotePatient Education - Text Mental and Behavioral Health Alcohol Misuse and Dependence Information, Adult Alcohol is a widely available drug and people choose to drink alcohol in different amounts. Alcoholmisuse and dependence can have a negative effect on your life. Alcohol misuse is when you use alcohol too much or too often. You may have a hard time setting a limit on the amount you drink. Alcohol dependence is when you use alcohol consistently for a period of time, and your body changesas a result. Alcohol dependence can make it hard for you to stop drinking because you may start to feel sick or different when you do not drink alcohol. These symptoms are known as withdrawal. People who drink alcohol very often and in large amounts, may develop what is called an alcohol usedisorder. How can alcohol misuse and dependence affect me? Drinking too much can lead to addiction. You may feel like you need alcohol to function normally. You may drink alcohol before work in the morning, during the day, or as soon as you get home from work in the evening. These actions can result in: ??? Poor work performance. ??? Job loss. ??? Financial problems. ??? Car crashes or criminal charges from driving after drinking alcohol. ??? Problems in your relationships with friends and family. ??? Losing the trust and respect of coworkers, friends, and family. Drinking heavily over a long period of time can permanently damage your body and brain, and can cause lifelong health issues, such as: ??? Damage to your liver or pancreas. ??? Heart problems, high blood pressure, or stroke. ??? Certain cancers. ??? Decreased ability to fight infections. ??? Brain or nerve damage. ??? Depression. ??? Early , also called premature . If you are careless or you crave alcohol, it is easy to drink more than your body can handle (overdose). Alcohol overdose is a serious situation that requires hospitalization. It may lead to permanent injuries or . What can increase my risk? Having a family history of alcohol misuse. ??? Having depression or other mental health conditions. ??? Beginning to drink at an early age. ??? Binge drinking often. ??? Experiencing trauma, stress, and an unstable home life during childhood. ??? Spending time with people who drink often. What actions can I take to prevent alcohol misuse and dependence? Do not drink alcohol if: ? Your health care provider tells you not to drink. ? You are , may be , or are planning to become . ??? If you drink alcohol: ? Limit how much you have to: ? 0?1 [...] oz glass of hard liquor (44 mL). ??? If you think you have an alcohol dependency problem, decide to stop drinking. This can be very hard to do if you are used to frequently drinking alcohol. ??? If you begin to have withdrawal symptoms, talk with your health care provider or a person that you trust. These symptoms may include anxiety, shaky hands, headache, nausea, sweating, or not beingable to sleep. ??? Choose to drink nonalcoholic beverages in social gatherings and places where there may be alcohol. Activity ??? Spend more time on activities that you enjoy that do not involve alcohol, like hobbies or exercise. ??? Find healthy ways to cope with stress, such as meditation or spending time with people you careabout. General information ??? Talk to your family, coworkers, and friends about supporting you in your efforts to stop drinking. If they drink, ask them not to drink around you. Spend more time with people who do not drink alcohol. ??? If you think that you have an alcohol dependency problem: ? Tell friends or family about your concerns. ? Talk with your health care provider or another health professional about where to get help. ? Work with a therapist and a chemical dependency counselor. ? Consider joining a support group for people who struggle with alcohol misuse and dependence. Where to find support ??? Your health care provider. ??? Thumb Reading: [employer] ??? Local treatment centers or chemical dependency counselors. ??? Local AA groups in your community: aa.org Where to find more information ??? Centers for Disease Control and Prevention: cdc.gov ??? National [place] on Alcohol Abuse and Alcoholism: niaaa.nih.gov ??? Alcoholics Anonymous (AA): aa.org Contact a health care provider if: ??? You drank more or for longer than you intended on more than one occasion. ??? You often drink to the point of vomiting or passing out. ??? You have problems in your life due to drinking, but you continue to drink. ??? You keep drinking even though you feel anxious, depressed, or have experienced memory (more content not included)...[facility] 01-12-2024 NoteProgress Note-Physician Assessment/Plan PLAN: 1. Acute alcoholic intoxication in alcoholism (F10.229: Alcohol dependence with intoxication, unspecified) Ethanol level is 510. CIWA protocol to monitor for withdrawal.--more oriented but still w/tremors today. IVF-off taking PO today. Folic Acid, Thiamine, MVI Continue Librium Ativan per CIWA 2. Suicidal ideation (R45.851: Suicidal ideations) On admission she stated she wanted to but denied plan.---today states she is not suicidal Will pink slip and contact [address] [place] [address] once medically stable. Sitter at all times w/pt. 3. History of substance use (Z87.898: Personal history of other specified conditions) substance abuse w/ accidental heroin overdose in 08/01/23 which required inpt stay at [facility] [place] [place] [facility]. pt currently smokes, smokes marijuana--tox screen negative for cannabis. Urine tx screen positive for Benzos. Manager Stylist on cessation. 4. Elevated liver enzymes (R74.8: Abnormal levels of other serum enzymes) Alk phos, ALT, and AST are elevated from most recent lab work likely due to chronic alcohol use IVF Trend labs. 5. of parent (Z63.4: Disappearance and of family member) Pt w/recent of father 2017 states I haven't been right since . Refer to [address] [place] [address] once medically stable. 6. Bipolar depression (F31.9: Bipolar disorder, unspecified) States she has not been compliant with Prozac. Med rec pending. Will resume meds once clarified. DVT Prophylaxis: Heparin sq Disposition: inpt status will require >2 midnight stays for further work up and treatment of above. Subjective Pt seen at bedside this AM> she is sleeping but awakens easily to name. She is more involved with assessment today than yesterday. When asked about suicidal ideations pt states, I don't know why I told you that, I don't want to hurt myself now . Pt still w/tremors this AM and requiring intermittent Ativan IV. Per nursing CIWA was elevated during the night however pt was receiving Ativan less than hourly but frequently. Pt does not appear in any distress this AM. She is calm and cooperative,follows commands and answers questions appropriately. Aware that she will need pink slipped for discharge plan. Agreeable and requesting Detox. Objective Vitals & Measurements T: 36.8 ???C(Oral) TMIN: 36.8 ???C(Oral) TMAX: 36.9 ???C(Oral) HR: 91(Monitored) RR: 18 BP: 137/89 SpO2: 96% HT: 157 cm WT: 80.6 kg Intake & Output This visit (24 hour periods starting at 07:00 EST) 01/12/24 * 01/11/24 01/10/24 Total Summary Intake mL 0.5 1,006.06 -- Output mL -- -- -- Fluid Balance 0.5 1,006.06 -- Intake (3) Sodium Chloride 0.9% intravenous solution 1,000 mL mL -- 1,000.06 -- lorazepam mL 0.5 4 -- ondansetron mL -- 2 -- Total 0.5 1,006.06 -- Output (0) Counts (0) * This column has not completed the indicated time period. Physical Exam General: NAD. Scattered tattoos. Skin: Warm, dry, intact, no pallor noted. Head: Normocephalic, atraumatic Neck: Supple, nontender, No JVD Eye: Pupils, round reactive, non icteric. ENT: Nares patent, Moist mucus membranes, no erythema or exudates. Cardiovascular: Regular rate normal peripheral perfusion, on edema. Respiratory: No respiratory distress no accessory muscle use no obvious audible wheezing Chest Wall: no deformity Musculoskeletal: normal ROM, no deformity, no swelling GI: Soft no obvious distention. No rebound or rigidity. No guarding. No tenderness. Neurological:oriented to person, place and time. No confusion today. moves all extremities equal strength and symmetry; mild tremors today. Psychiatric: Calm and Cooperative this AM. Lab Results WBC: 2.8 E9/L Low (01/12/24 06:03:00) RBC: 3.8 E12/L Low (01/12/24 06:03:00) HGB: 12.7 gm/dL (01/12/24 06:03:00) Hct: 36.7 % (01/12/24 06:03:00) MCV: 97.4 fL (01/12/24 06:03:00) MCH: 33.7 pg (01/12/24 06:03:00) MCHC: 34.6 gm/dL (01/12/24 06:03:00) RDW: 14.5 % High (01/12/24 06:03:00) Platelet: 91 E9/L Low (01/12/24 06:03:00) MPV: 8.2 fL (01/12/24 06:03:00) RBC Morph: NORMAL (01/12/24 06:03:00) Sodium Lvl: 139 mmol/L (01/12/24 06:03:00) Potassium Lvl: 3.8 mmol/L (01/12/24 06:03:00) Chloride: 106 mmol/L (01/12/24 06:03:00) CO2: 29 mmol/L (01/12/24 06:03:00) AGAP: 8 mEq/L (01/12/24 06:03:00) Alk Phos: 113 Int._Unit/L High (01/12/24 06:03:00) ALT: 70 Int._Unit/L High (01/12/24 06:03:00) AST: 165 Int._Unit/L High (01/12/24 06:03:00) Total Protein: 6.5 gm/dL (01/12/24 06:03:00) Albumin Lvl: 3.2 gm/dL Low (01/12/24 06:03:00) Globulin: 3.3 gm/dL (01/12/24 06:03:00) A/G Ratio: 1 Low (01/12/24 06:03:00) Bili Total: 0.6 mg/dL (01/12/24 06:03:00) Bili Direct: 0.2 mg/dL (01/12/24 06:03:00) Bili Indirect: 0.4 mg/dL (01/12/24 06:03:00) U Amph Scr: NEGATIVE (01/11/24 12:58:00) U Janell Scr: NEGATIVE (01/11/24 12:58:00) U Benzodia Scr: POSITIVE Abnormal (01/11/24 12:58:00) U Cannab Scr: NEGATIVE (01/11/24 12:58 (more content not included)...[facility] CenterComment on above:Result Comment: Electronically Signed By: Elisa HARRIS\.br\Date and Time Signed: 01/12/24 11:14 EST\.br\Electronically Co-Signed By: Pavel Ortega DO.br\Date and Time Co-Signed:01/12/24 14:21 [id number] NoteProgress Note-Physician Pt is medically stable. Vitals and labs are normal. Alcohol level is normal today. pt is alert, cooperative. Denies suicidal ideations currently however was adamant yesterday i want it to be over I just want to . Pt would benefit for inpt psych stay as she has not been taking pych meds as prescribed and has been drinking etoh and using benzos again. Pt pink slipped and will await mental health eval, recommendations to proceed with further plan.[facility] CenterComment on above:Result Comment: Electronically Signed By: Elisa HARRIS\.br\Date and Time Signed: 01/12/24 13:02 EST\.br\Electronically Co-Signed By: Pavel Ortega DO.br\Date and Time Co-Signed:01/12/24 14:21 [id number] NoteHistory and Physical Basic Information Admit Date/Time:01/11/2024 13:10 Chief Complaint Etoh intoxication and suicidal ideation History of Present Illness 34 year old with past medical history of bipolar disorder, smokeri, alcohol abuse, anxiety, depression,substance abuse w/ accidental heroin overdose in 08/01/23 which required inpt stay at [facility] [place] [place] [facility]. Ptpresented to the hospital with her mother due to alcohol intoxication and suicidal ideations. Upon assessment on the floor pt is tired, oriented to self and place but confused conversation otherwise. Pt having a hard time understanding and become easily frustrated. States, I just want to I want it to be over but when asked if she had a plan she was adamant that she did not. She did not exhibit any auditory or visual hallucinations during assessment. States she typically drinks a large bottle of Vodka daily. Denies initially drug abuse but then admitted she intermittently uses cannabis but denies other drug use. Pt did report that she is on Prozac but has not been taking it. Unsure when she took it last. Pt denies fevers, chills, CP, SOB, N/V. Pt reports of her father in 2017 and states, i just haven't been right since . Pt is requesting inpt help for suicidal ideation and alcoholism. In the ED pt did have elevated Ethanol level 510. UDS was positive for Benzos but she does have a prescription recently filled for Diazepam. Elevated liver enzymes increased from recent levels. Pt was referred to the hospitalist group for further work up and treatment. Pt will have sitter in room with her. Review of Systems Additional ROS info: Except as noted in the above Review of Systems and in the History of Present Illness all other systems have been reviewed and are negative or noncontributory. Scoring Horner Fall Risk Score: 95 High (01/11/24) Physical Exam Vitals & Measurements T: 36.9 ???C(Oral) HR: 86(Monitored) RR: 16 BP: 121/76 SpO2: 92% HT: 157 cm WT: 74 kg General: restless then drowsy, tearful at times. Scattered tattoos. Skin: Warm, dry, intact, no pallor noted. Head: Normocephalic, atraumatic Neck: Supple, nontender, No JVD Eye: Pupils, round reactive, non icteric. ENT: Nares patent, Moist mucus membranes, no erythema or exudates. Cardiovascular: Regular rate normal peripheral perfusion, on edema. Respiratory: No respiratory distress no accessory muscle use no obvious audible wheezing Chest Wall: no deformity Musculoskeletal: normal ROM, no deformity, no swelling GI: Soft no obvious distention. No rebound or rigidity. No guarding. No tenderness. Neurological:Drowsy, oriented to person, place but confused conversation at times. moves all extremities equal strength and symmetry Psychiatric: Restless, Cooperative, tearful Lab Results WBC: 6.3 E9/L (01/11/24 10:12:00) RBC: 4 E12/L Low (01/11/24 10:12:00) HGB: 13.5 gm/dL (01/11/24 10:12:00) Hct: 38.7 % (01/11/24 10:12:00) MCV: 97.9 fL (01/11/24 10:12:00) MCH: 34.2 pg High (01/11/24 10:12:00) MCHC: 34.9 gm/dL (01/11/24 10:12:00) RDW: 14.7 % High (01/11/24 10:12:00) Platelet: 136 E9/L Low (01/11/24 10:12:00) MPV: 7.9 fL (01/11/24 10:12:00) Segs Man: 29 % Low (01/11/24 10:12:00) Lymph Man: 30 % (01/11/24 10:12:00) Monocyte Man: 6 % (01/11/24 10:12:00) Eos Man: 1 % (01/11/24 10:12:00) Basophil Man: 1 % (01/11/24 10:12:00) React Lymph Man: 33 % High (01/11/24 10:12:00) Segs Abs Man: 1.8 E9/L (01/11/24 10:12:00) Lymph Abs Man: 4 E9/L (01/11/24 10:12:00) [place] Abs Man: 0.4 E9/L (01/11/24 10:12:00) Eos Abs Man: 0.1 E9/L (01/11/24 10:12:00) Basophil Abs Man: 0.1 E9/L (01/11/24 10:12:00) RBC Morph: NORMAL (01/11/24 10:12:00) Glucose Lvl: 106 mg/dL (01/11/24 10:12:00) BUN: 5 mg/dL (01/11/24 10:12:00) Creatinine: 0.5 mg/dL (01/11/24 10:12:00) eGFR: 128 mL/min/1.73 m2 (01/11/24 10:12:00) BUN/Creat Ratio: 10 (01/11/24 10:12:00) Sodium Lvl: 141 mmol/L (01/11/24 10:12:00) Potassium Lvl: 3.6 mmol/L (01/11/24 10:12:00) Chloride: 106 mmol/L (01/11/24 10:12:00) CO2: 27 mmol/L (01/11/24 10:12:00) AGAP: 12 mEq/L (01/11/24 10:12:00) Calcium Lvl: 8.2 mg/dL Low (01/11/24 10:12:00) Alk Phos: 114 Int._Unit/L High (01/11/24 10:12:00) ALT: 74 Int._Unit/L High (01/11/24 10:12:00) AST: 156 Int._Unit/L High (01/11/24 10:12:00) Total Protein: 7.1 gm/dL (01/11/24 10:12:00) Albumin Lvl: 3.6 gm/dL (01/11/24 10:12:00) Globulin: 3.5 gm/dL (01/11/24 10:12:00) A/G Ratio: 1 Low (01/11/24 10:12:00) Bili Total: 0.5 mg/dL (01/11/24 10:12:00) U Amph Scr: NEGATIVE (01/11/24 12:58:00) U Janell Scr: NEGATIVE (01/11/24 12:58:00) U Benzodia Scr: POSITIVE Abnormal (01/11/24 12:58:00) U Cannab Scr: NEGATIVE (01/11/24 12:58:00) U Cocaine Scr: NEGATIVE (01/11/24 12:58:00) U Opiate Scr: NEGATIVE (01/11/24 12:58:00) U PCP Scr: NEGATIVE (01/11/24 12:58:00) U Fentanyl: NEGATIVE (01/11/24 12:58:00) Ethanol Lvl: 510 mg/dL Critical (01/11/24 10:12:00) UA Spec Desc: Clean Catch (01/11/24 12:58:00) UA [place] (more content not included)...[facility] CenterComment on above:Result Comment: Electronically Signed By: Elisa HARRIS\.br\Date and Time Signed: 01/11/24 14:31 EST\.br\Electronically Co- Signed By: Pavel Ortega DO.br\Date and Time Co-Signed:01/11/24 16:01 [id number] Hospital Discharge instructions Patient Education 12/05/2023 18:42:36 Methamphetamine Use Disorder Methamphetamine Use Disorder Methamphetamine use disorder is a condition in which the use of methamphetamines disrupts daily life. Methamphetamines belong to a group of powerful drugs known as stimulants. Common names for methamphetamines are meth, speed, crystal, ice, glass, and chalk. Methamphetamines are often misused because of their effects, which include: A feeling of extreme pleasure (euphoria). Alertness. A high energy level. Increased sexuality. Misuse of methamphetamines can cause problems with physical and mental health, including: Poor nutrition (malnutrition) and extreme weight loss. Jaw clenching and severe dental problems. Lung problems. Skin sores. Diseases caused by infections, such as hepatitis or HIV. Other problems may include: Anxiety. Memory or sleep problems. Seeing or hearing things that are not real (having hallucinations). Violent behavior. Methamphetamine use disorder can be dangerous and life-threatening. These drugs increase your bloodpressure and heart rate, which can lead to a heart attack or stroke. Methamphetamines can also makeyour heart rate irregular and cause seizures. What are the causes? This condition is caused by misusing methamphetamines for a period of time. Many people start usingmethamphetamines because the drugs make them feel good. Over time, they get addicted to them. Methamphetamines work fast, and the good feelings that they produce go away quickly. As a result, people often binge by taking many doses over short periods of time. What increases the risk? This condition is more likely to develop in people who: Misuse other drugs or alcohol. Have problems with mood or behavior. Have a mental illness, such as depression, post-traumatic stress disorder, or antisocial personality disorder. Begin use at an early age, such as during their teenage years. What are the signs or symptoms? Symptoms of this condition include: Using methamphetamines for longer periods of time or in higher amounts than you want to. Craving methamphetamines and being unable to slow down or stop using the drug. Spending a lot of time getting methamphetamines, using them, or recovering from their effects. Using methamphetamines in a way that interferes with work, school, social activities, or personal relationships. Giving up or cutting down on important life activities because of methamphetamine use. Using these drugs when it is dangerous, such as when driving a car. Continuing to use the drug even after it has led to problems such as: ?Physical or mental health problems. ?Legal or financial troubles. ?Job loss. ?Broken relationships. Needing more and more of the drug to get the same effect (building up a tolerance). Having unpleasant symptoms if you do not use the methamphetamine (withdrawal). Some symptoms of withdrawal include: ?Being unable to feel pleasure (anhedonia). ?Feeling irritable. ?Low energy and restlessness. ?Bad dreams and too little or too much sleep. ?Increased appetite. How is this diagnosed? This condition is diagnosed based on: A physical exam. Your history of methamphetamine use. Your symptoms. This includes: ?How methamphetamine use affects your life. ?Changes in personality, behaviors, and mood. ?Having at least two symptoms of methamphetamine use disorder within a 12-month period. How severe the condition is depends on how many symptoms you have. ?Health issues related to using methamphetamines. Blood or urine tests to screen for drugs. How is this treated? The first goal of treatment is to stop your use of methamphetamines. This must be done safely and may involve: Taking part in group and individual counseling from specially trained mental health providers. Staying at a residential treatment center for several days or weeks. Attending daily counseling sessions at a treatment center. Taking medicines as told by your health care provider that: ?Ease symptoms and prevent complications during withdrawal. ?Block cravings and block the good feeling that you get from using methamphetamines. ?Treat other mental health issues, such as depression or anxiety. ?Reduce agitation. Participating in a support group to share your experience with others who are going through the same thing. Recovery can be a long process. Many people who undergo treatment start using the drug again after stopping (relapse). If you relapse, it does not mean that treatment will not work. Follow these instructions at home: Medicines Take juen-piw-wkycgzp and prescription medicines only as told by your health care provider. Check with your health care provider before starting any new medicines, vitamins, herbs, or supplements. Dental care Take care of your teeth by: Brushing and flossing. Do this two times a day. Using an antibacterial mouthwash. Avoiding sugary drinks. General instructions Do not use any drugs or alcohol. Do not use any products that contain nicotine or tobacco. These products include cigarettes, chewing tobacco, and vaping devices, such as e-cigarettes. If you need help quitting, ask your health careprovider. Avoid people and activities that trigger your use of methamphetamines. Learn and practice techniques for managing stress. Have a plan for vulnerable moments. Get phone numbers of those who are willing to help and who are committed to your recovery. Attend support groups regularly. These groups provide emotional support, advice, and guidance. Keep all follow-up visits. This is important for recovery and includes continuing to work with therapists and support groups. Where to find more information National [place] on Drug Abuse: gracy.nih.gov Substance Abuse and Mental Health Services Administration: [facility] hospital[facility].gov Narcotics Anonymous: na.org Contact a health care provider if: Your symptoms get worse. You use methamphetamines again. You cannot take medicines as told. Get help right away if: You may have taken too much methamphetamine (overdosed). Symptoms of an overdose include: ?Chest pain. ?A seizure. You have any symptoms of a stroke. BE FAST is an easy way to remember the main warning signs of astroke: ?B - Balance. Signs are dizziness, sudden trouble walking, or loss of balance. ?E - Eyes. Signs are trouble seeing or a sudden change in vision. ?F - Face. Signs are sudden weakness or numbness of the face, or the face or eyelid drooping on oneside. ?A - Arms. Signs are weakness or numbness in an arm. This happens suddenly and usually on one side of the body. ?S - Speech. Signs are sudden trouble speaking, slurred speech, or trouble understanding what people say. ?T - Time. Time to call emergency services. Write down what time symptoms started. Other signs of a stroke, such as: ?A sudden, severe headache with no known cause. These symptoms may be an emergency. Get help right away. Call 911. Do not wait to see if the symptoms will go away. Do not drive yourself to the hospital. Also, get help right away if: You have serious thoughts about hurting yourself or others. Take one of these steps if you feel like you may hurt yourself or others, or have thoughts about taking your own life: Go to your nearest emergency room. Call 911. Call the National Suicide Prevention Lifeline at or 675. This is open 24 hours a day. Text the Crisis Text Line at 583725. Summary Methamphetamine use disorder is a condition in which the use of methamphetamines disrupts daily life. Methamphetamines belong to a group of powerful drugs known as stimulants. Avoid people and activities that trigger your use of methamphetamines, and be sure to attend support groups regularly. Recovery can be a long process. If you have a relapse, that does not mean that treatment will not work. This information is not intended to replace advice given to you by your health care provider. Make sure you discuss any questions you have with your health care provider. Document Revised: 05/28/2022 Document Reviewed: 05/28/2022 [employer] Patient Education 2023 [place]. 12/05/2023 18:42:36 Alcohol Withdrawal Syndrome Alcohol Withdrawal Syndrome Alcohol [...] when a person is unable to control their alcohol use. This usually disrupts daily life. What are the causes? Drinking heavily on a regular basis cause changes in brain chemistry. Over time, the body becomes dependent on alcohol. When alcohol use stops, the chemical system in the brain becomes unbalanced andcauses the symptoms of alcohol withdrawal. What increases the risk? Alcohol withdrawal syndrome is more likely to occur in people who drink more than the recommended limit of alcohol. The recommended limit is 2 drinks a day for men and 1 drink a day for women who arenot . It is also more likely to affect heavy drinkers who have been using alcohol for long periods of time. The more a person drinks and the longer they drink, the greater the risk of alcoholwithdrawal syndrome. The following factors may make a person more likely to develop alcohol withdrawal syndrome: Having had severe alcohol withdrawal in the past. Having had a seizure during a previous episode of alcohol withdrawal. Being elderly. Using other drugs. Having a long-term (chronic) medical problem, such as heart, lung, or liver disease. Having depression. Not getting enough nutrients from their diet (malnutrition). What are the signs or symptoms? Symptoms of this condition can be mild, moderate, or severe. Symptoms may start within 6 hours after the last drink. 48 hours after the last drink, a person may have the following symptoms: Uncontrollable shaking (tremor). Sweating. Inability to relax (agitation). Trouble sleeping (insomnia). Irregular heartbeats (palpitations). Alcohol cravings. Seizure. The following symptoms may get worse 24 48 hours after a person decreases or stops alcohol use, then gradually improve over a period of days or weeks: Nausea and vomiting. Feeling tired (fatigue). Sensitivity to light and sounds. Confusion and inability to think clearly. Loss of appetite. Mood swings, irritability, depression, and anxiety. Insomnia and nightmares. The following symptoms are severe and life-threatening. When these symptoms occur together, they are called delirium tremens (DTs): High blood pressure. Increased heart rate. Trouble breathing. Seizures. Seeing, hearing, feeling, smelling, or tasting things that are not there (hallucinations). Delirium tremens requires immediate hospitalization. How is [...] can be treated outside of a hospital (outpatient treatment), with close monitoring such as [...] likely to commit to an outpatient treatment plan. Treatment may involve: Monitoring your blood pressure, pulse, and breathing. IV fluids to keep you hydrated. Medicines to reduce withdrawal symptoms and discomfort. Medicine to reduce anxiety. Medicine to prevent or control seizures. Multivitamins and B vitamins. Having a health care provider check on you daily. It is important to get treatment for alcohol withdrawal early. Getting treatment early can: Speed up your recovery from withdrawal symptoms. Make you more likely to stop drinking for a long time (sobriety). If you need help to stop drinking, your health care provider may recommend a long-term treatment plan that includes: Medicines to help treat alcohol use disorder. Substance abuse counseling. Support groups. Follow these instructions at home: Take kpvo-rjf-pkibjzk and prescription medicines only as told by your health care provider. Do not drink alcohol. Do not drive until your health care provider approves. Have someone you trust stay with you or be available if you need help with your symptoms or with not drinking. Drink enough fluid to keep your urine pale yellow. Consider joining an alcohol support group or treatment program. This can provide emotional support,advice, and guidance. Contact a health care provider if: Your symptoms get worse instead of better. You cannot eat or drink without vomiting. You cannot stop drinking alcohol. Get help right away if: You have an irregular heartbeat. You have chest pain. You have trouble breathing. You are told you had a seizure. You hallucinate. You become very confused. These symptoms may be an emergency. Get help right away. Call 911. Do not wait to see if the symptoms will go away. Do not drive yourself to the hospital. Summary Alcohol withdrawal is a group of symptoms that can develop when a person who drinks heavily and regularly stops drinking or drinks less. Symptoms of this condition can be mild, moderate, or severe. Treatment may include hospitalization, medicine, and counseling. This information is not intended to replace advice given to you by your health care provider. Make sure you discuss any questions you have with your health care provider. Document Revised: 04/11/2022 Document Reviewed: 04/11/2022 [employer] Patient Education 2023 [place]. Follow Up Care 12/05/2023 15:41:13 With:Francisco Cruz Address: [facility] [address] [place] [address]- Business (1) When:12/08/2023 18:30:57 Comments:Call to schedule an appointment with neurology regarding your possiblel seizure-like activity With:Birgit Aiken Address: [address] [address] [place] [address]- Business (1) When:12/08/2023 18:31:15 [facility] 10-24-2024 NoteED Patient Education Note Mental and Behavioral Health Methamphetamine Use Disorder Methamphetamine use disorder is a condition in which the use of methamphetamines disrupts daily life. Methamphetamines belong to a group of powerful drugs known as stimulants. Common names for methamphetamines are meth, speed, crystal, ice, glass, and chalk. Methamphetamines are often misused because of their effects, which include: ??? A feeling of extreme pleasure (euphoria). ??? Alertness. ??? A high energy level. ??? Increased sexuality. Misuse of methamphetamines can cause problems with physical and mental health, including: ??? Poor nutrition (malnutrition) and extreme weight loss. ??? Jaw clenching and severe dental problems. ??? Lung problems. ??? Skin sores. ??? Diseases caused by infections, such as hepatitis or HIV. Other problems may include: ??? Anxiety. ??? Memory or sleep problems. ??? Seeing or hearing things that are not real (having hallucinations). ??? Violent behavior. Methamphetamine use disorder can be dangerous and life-threatening. These drugs increase your bloodpressure and heart rate, which can lead to a heart attack or stroke. Methamphetamines can also makeyour heart rate irregular and cause seizures. What are the causes? This condition is caused by misusing methamphetamines for a period of time. Many people start usingmethamphetamines because the drugs make them feel good. Over time, they get addicted to them. Methamphetamines work fast, and the good feelings that they produce go away quickly. As a result, people often binge by taking many doses over short periods of time. What increases the risk? This condition is more likely to develop in people who: ??? Misuse other drugs or alcohol. ??? Have problems with mood or behavior. ??? Have a mental illness, such as depression, post-traumatic stress disorder, or antisocial personality disorder. ??? Begin use at an early age, such as during their teenage years. What are the signs or symptoms? Symptoms of this condition include: ??? Using methamphetamines for longer periods of time or in higher amounts than you want to. ??? Craving methamphetamines and being unable to slow down or stop using the drug. ??? Spending a lot of time getting methamphetamines, using them, or recovering from their effects. ??? Using methamphetamines in a way that interferes with work, school, social activities, or personal relationships. ??? Giving up or cutting down on important life activities because of methamphetamine use. ??? Using these drugs when it is dangerous, such as when driving a car. ??? Continuing to use the drug even after it has led to problems such as: ? Physical or mental health problems. ? Legal or financial troubles. ? Job loss. ? Broken relationships. ??? Needing more and more of the drug to get the same effect (building up a tolerance). ??? Having unpleasant symptoms if you do not use the methamphetamine (withdrawal). Some symptoms ofwithdrawal include: ? Being unable to feel pleasure (anhedonia). ? Feeling irritable. ? Low energy and restlessness. ? Bad dreams and too little or too much sleep. ? Increased appetite. How is this diagnosed? This condition is diagnosed based on: ??? A physical exam. ??? Your history of methamphetamine use. ??? Your symptoms. This includes: ? How methamphetamine use affects your life. ? Changes in personality, behaviors, and mood. ? Having at least two symptoms of methamphetamine use disorder within a 12-month period. How severethe condition is depends on how many symptoms you have. ? Health issues related to using methamphetamines. ??? Blood or urine tests to screen for drugs. How is this treated? The first goal of treatment is to stop your use of methamphetamines. This must be done safely and may involve: ??? Taking part in group and individual counseling from specially trained mental health providers. ??? Staying at a residential treatment center for several days or weeks. ??? Attending daily counseling sessions at a treatment center. ??? Taking medicines as told by your health care provider that: ? Ease symptoms and prevent complications during withdrawal. ? Block cravings and block the good feeling that you get from using methamphetamines. ? Treat other mental health issues, such as depression or anxiety. ? Reduce agitation. ??? Participating in a support group to share your experience with others who are going through thesame thing. Recovery can be a long process. Many people who undergo treatment start using the drug again after stopping (relapse). If you relapse, it does not mean that treatment will not work. Follow these instructions at home: Medicines ??? Take xwod-yim-wefkmaf and prescription medicines only as told by your health care provider. ??? Check with your health care provider before starting any new medicines, vitamins (more content not included)...[facility]10-16-2024 Hospital Discharge instructions Patient Education 11/27/2023 17:39:15 Substance Use Disorder Substance Use Disorder Substance use disorder occurs when a person's repeated use of drugs or alcohol interferes with the ability to be productive. This disorder can cause problems with mental and physical health. It can affect your ability to have healthy relationships, and it can keep you from being able to meet your responsibilities at work, home, or school. It can also lead to addiction, which is a condition in which you cannot stop using the substance consistently for a period of time. Addiction changes the way the brain works. Because of these changes, addiction is a chronic condition. Substance use disorder can be mild, moderate, or severe. Some commonly misused substances that can lead to this disorder include: Alcohol. Tobacco. Marijuana. Stimulants, such as cocaine and methamphetamine. Hallucinogens, such as LSD and PCP. Opioids, such as some prescription pain medicines and heroin. What are the causes? This condition may develop due to many complex social, psychological, or physical reasons, such as: Stress. Abuse. Peer pressure. Anxiety or depression. What increases the risk? This condition is more likely to develop in people who: Use substances to cope with stress. Have been abused. Have a mental health disorder, such as depression. Have a family history of substance use disorder. What are the signs or symptoms? Symptoms of this condition include: Using the substance for longer periods of time or at a higher dosage than what is normal or intended. Having a lasting desire to use the substance. Being unable to slow down or stop the use of the substance. Spending an abnormal amount of time getting the substance, using the substance, or recovering from using the substance. Using the substance in a way that interferes with work, school, social activities, and personal relationships. Using the substance even after having negative consequences, such as: ?Health problems. ?Legal or financial troubles. ?Job loss. ?Relationship problems. Needing more and more of the substance to get the same effect (developing tolerance). Experiencing unpleasant symptoms if you do not use the substance (withdrawal). Using the substance to avoid withdrawal symptoms. How is this diagnosed? This condition may be diagnosed based on: A physical exam. Your history of substance use. Your symptoms. This includes: ?How substance use affects your life. ?Changes in personality, behaviors, and mood. ?Having at least two symptoms of substance use disorder within a 12-month period. ?Health issues related to substance use, such as liver damage, shortness of breath, fatigue, cough,or heart problems. Blood or urine tests to screen for alcohol and drugs. How is this treated? This condition may be treated by: Stopping substance use safely. This may require taking medicines and being closely monitored for several days. Taking part in group and individual counseling from mental health providers who help people with substance use disorder. Staying at a live-in (residential) treatment center for several days or weeks. Attending daily counseling sessions at a treatment center. Taking medicine as told by your health care provider: ?To ease symptoms and prevent complications during withdrawal. ?To treat other mental health issues, such as depression or anxiety. ?To block cravings by causing the same effects as the substance. ?To block the effects of the substance or replace good sensations with unpleasant ones. Participating in a support group to share your experience with others who are going through the same thing. These groups are an important part of long-term recovery for many people. Recovery can be a long process. Many people who undergo treatment start using the substance again after stopping (relapse). If you relapse, that does not mean that treatment will not work. Follow these instructions at home: Take rqom-yhw-kvffzff and prescription medicines only as told by your health care provider. Do not use any drugs or alcohol. Avoid temptations or triggers that you associate with your use of the substance. Learn and practice techniques for managing stress. Have a plan for vulnerable moments. Get phone numbers of people who are willing to help and who arecommitted to your recovery. Attend support groups on a regular basis. These groups include 12-step programs like Alcoholics Anonymous and Narcotics Anonymous. Keep all follow-up visits. This is important. This includes continuing to work with therapists and support groups. Where to find more information Substance Abuse and Mental Health Services Administration (SAMHSA): www.samhsa.gov [place] [employer] Mental Illness (SHEY): www.shey.org Contact a health care provider if: You cannot take your medicines as told. Your symptoms get worse. You have trouble resisting the urge to use drugs or alcohol. Get help right away if: You relapse. You think that you may have taken too much of a drug. The National Poison Control Center hotline ar7-789-4501-811.306.6613. You have signs of an overdose. Symptoms include: ?Chest pain. ?Confusion. ?Sleepiness or difficulty staying awake. ?Slowed breathing. ?Nausea or vomiting. ?A seizure. You have serious thoughts about hurting yourself or someone else. Drug overdose is an emergency. Do not wait to see if the symptoms will go away. Get medical help right away. Call your local emergency services (024 in the [place] Do not drive yourself to the hospital. If you ever feel like you may hurt yourself or others, or have thoughts about taking your own life,get help right away. Go to your nearest emergency department or: Call your local emergency services (814 in the [place] Call a suicide crisis helpline, such as the National Suicide Prevention Lifeline at or 598 in the [place] This is open 24 hours a day in the [place] Text the Crisis Text Line at 596722 (in the [place] Summary Substance use disorder occurs when a person's repeated use of drugs or alcohol interferes with the ability to be productive. Taking part in group and individual counseling from mental health providers is a common treatment for people with substance use disorder. Recovery can be a long process. Many people who undergo treatment start using the substance again after stopping (relapse). A relapse does not mean that treatment will not work. Attend support groups such as Alcoholics Anonymous and Narcotics Anonymous. These groups are an important part of long-term recovery for many people. This information is not intended to replace advice given to you by your health care provider. Make sure you discuss any questions you have with your health care provider. Document Revised: 08/23/2021 Document Reviewed: 05/26/2021 [employer] Patient Education 2023 [employer] Follow Up Care 11/27/2023 09:57:54 With:Birgit Aiken Address: [address] [place] [address]. [address] [place] [address] Business (1) When:11/30/2023 17:14:18 [facility] 10-16-2024 NoteED Patient Education Note Mental and Behavioral Health Substance Use Disorder Substance use disorder occurs when a person's repeated use of drugs or alcohol interferes with the ability to be productive. This disorder can cause problems with mental and physical health. It can affect your ability to have healthy relationships, and it can keep you from being able to meet your responsibilities at work, home, or school. It can also lead to addiction, which is a condition in which you cannot stop using the substance consistently for a period of time. Addiction changes the way the brain works. Because of these changes, addiction is a chronic condition. Substance use disorder can be mild, moderate, or severe. Some commonly misused substances that can lead to this disorder include: ? Alcohol. ? Tobacco. ? Marijuana. ? Stimulants, such as cocaine and methamphetamine. ? Hallucinogens, such as LSD and PCP. ? Opioids, such as some prescription pain medicines and heroin. What are the causes? This condition may develop due to many complex social, psychological, or physical reasons, such as: ? Stress. ? Abuse. ? Peer pressure. ? Anxiety or depression. What increases the risk? This condition is more likely to develop in people who: ? Use substances to cope with stress. ? Have been abused. ? Have a mental health disorder, such as depression. ? Have a family history of substance use disorder. What are the signs or symptoms? Symptoms of this condition include: ? Using the substance for longer periods of time or at a higher dosage than what is normal or intended. ? Having a lasting desire to use the substance. ? Being unable to slow down or stop the use of the substance. ? Spending an abnormal amount of time getting the substance, using the substance, or recovering from using the substance. ? Using the substance in a way that interferes with work, school, social activities, and personal relationships. ? Using the substance even after having negative consequences, such as: ? Health problems. ? Legal or financial troubles. ? Job loss. ? Relationship problems. ? Needing more and more of the substance to get the same effect (developing tolerance). ? Experiencing unpleasant symptoms if you do not use the substance (withdrawal). ? Using the substance to avoid withdrawal symptoms. How is this diagnosed? This condition may be diagnosed based on: ? A physical exam. ? Your history of substance use. ? Your symptoms. This includes: ? How substance use affects your life. ? Changes in personality, behaviors, and mood. ? Having at least two symptoms of substance use disorder within a 12-month period. ? Health issues related to substance use, such as liver damage, shortness of breath, fatigue, cough, or heart problems. ? Blood or urine tests to screen for alcohol and drugs. How is this treated? This condition may be treated by: ? Stopping substance use safely. This may require taking medicines and being closely monitored for several days. ? Taking part in group and individual counseling from mental health providers who help people with substance use disorder. ? Staying at a live-in (residential) treatment center for several days or weeks. ? Attending daily counseling sessions at a treatment center. ? Taking medicine as told by your health care provider: ? To ease symptoms and prevent complications during withdrawal. ? To treat other mental health issues, such as depression or anxiety. ? To block cravings by causing the same effects as the substance. ? To block the effects of the substance or replace good sensations with unpleasant ones. ? Participating in a support group to share your experience with others who are going through the same thing. These groups are an important part of long-term recovery for many people. Recovery can be a long process. Many people who undergo treatment start using the substance again after stopping (relapse). If you relapse, that does not mean that treatment will not work. Follow these instructions at home: ? Take tkqb-whe-esxarxr and prescription medicines only as told by your health care provider. ? Do not use any drugs or alcohol. ? Avoid temptations or triggers that you associate with your use of the substance. ? Learn and practice techniques for managing stress. ? Have a plan for vulnerable moments. Get phone numbers of people who are willing to help and who are committed to your recovery. ? Attend support groups on a regular basis. These groups include 12-step programs like Alcoholics Anonymous and Narcotics Anonymous. ? Keep all follow-up visits. This is important. This includes continuing to work with therapists and support groups. Where to find more information ? Substance Abuse and Mental Health Services Administration (SAMHSA): www.samhsa.gov ? [place] [employer]ness (SHEY): (more content not included)... [facility]10-16-2024 Evaluation + Plan noteExtracted from: Title:ED Note Author:Fabricio Gao PA-C te:11/27/23 Psychosis (F29: Unspecified psychosis not due to a substance or known physiological condition) Substance abuse (F19.10: Other psychoactive substance abuse, uncomplicated) Orders: Acetaminophen Level Beta hCG Qual CBC w/ Auto Diff Comprehensive Metabolic Panel Drug Screen Urine ECG 12 Lead Adult eGFR Ethanol Level UA with Cult Rflx [facility] 09-26-2024 Evaluation note* Author [facility] Authored November 07, 2023 9:56am 33-year-old female referred to the GI clinic for evaluation of constipation and hepatitis C. + Constipation + Hematochezia History of hepatitis C, treatment na ve Will recheck HCVRNA, if positive will initiate antiviral therapy. Will check viral hepatitis serologies and HIV. Will arrange for ultrasound liver. Will arrange for FibroScan. [facility] Work Phone: 1(415) 977-395609-26-2024 Evaluation note* Author [facility] Authored November 07, 2023 8:56am 33-year-old female referred to the GI clinic for evaluation of constipation and hepatitis C. + Constipation + Hematochezia History of hepatitis C, treatment na ve Will recheck HCVRNA, if positive will initiate antiviral therapy. Will check viral hepatitis serologies and HIV. Will arrange for ultrasound liver. Will arrange for FibroScan. [facility] Work Phone: 1(461) 806-959007-19-2024 Evaluation + Plan noteExtracted from: Title:ED Note Author:Kerry Linton DO Date :08/30/23 Alcohol abuse with withdrawa l (F10.139: Alcohol abuse with withdrawal, unspecified) Orders: lorazepam, 1 mg = 1 tab(s), Tab, Oral, Once, Stop date 08/30/23 1:15:00 EDT, STAT, Start date 08/30/23 1:15:00 EDT, 08/30/23 1:15:00 EDT lorazepam, 1 mg = 1 tab(s), Oral, TID, PRN for anxiety, X 3 day(s), # 9 tab(s), Refills(s) 0, Pharmacy: [facility], 157, cm, 08/29/23 22:55:00 EDT, Height/Length Dosing, 77.9, kg, 08/29/23 22:55:00 EDT, Weight Dosing lorazepam, 2 mg = 2 tab(s), Tab, Oral, Once, Stop date 08/29/23 23:21:00 EDT, STAT, Start date 08/29/23 23:21:00 EDT, 08/29/23 23:21:00 EDT CBC w/ Auto Diff Communication Order Comprehensive Metabolic Panel Drug Screen Urine eGFR Ethanol Level U Beta Hcg Qual [facility]07-19-2024 Hospital Discharge instructions Patient Education 08/30/2023 01:36:47 Alcohol Withdrawal Syndrome, Jhmr-dm-Ujft Alcohol Withdrawal Syndrome Alcohol withdrawal syndrome is [...] groups. Follow these instructions at home: Take ebnj-jlc-hnahbxf and prescription medicines only as told by [...] provider. Document Revised: 04/11/2022 Document Reviewed: 04/11/2022 [employer] Patient Education 2022 [place]. Follow Up Care 08/29/2023 22:35:23 With:Chemical Dependency: Address:Unknown When:09/02/2023 Comments:you can use Ativan every 8 hours as needed for your symptoms. Please follow-up with your primary care doctor and chemical dependency for further evaluation management. Return to the ED for any new orworsening symptoms. With:Birgit Aiken Address: [address] [place] [id number]- Business (1) When:Within 3 Day(s) [facility]07-19-2024 NoteED Patient Education Note Mental and Behavioral [...] Follow these instructions at home: ? Take nnnw-dms-xmweipu and prescription medicines only as told by [...] provider. Document Revised: 04/11/2022 Document Reviewed: 04/11/2022 [employer] Patient Education ? 2022 [place].[facility] 08-10-2023 Discharge summary Author Piyush Pace [facility] August 10, 2023 11:13am Note Date/Time August 10, 2023 11:0 0am [facility] [address] [place], [place] [id number] Discharge Summary Signed Patient: Lyle Bailey MR#: [id number] : 1990 Acct:[id number] Age/Sex: 33 / F Adm Date: 4 Loc: Room: [address] [place] [address]: Piyush Pace MD Copies to: MD Amanda Resendez OCCUPATIONAL THERAPY SPECIALIST, [employer] BUSINESS DEVELOPER~ Providers Date of Discharge: 08/10/23 Discharging Provider: Piyush Pace Primary Care Provider: Amanda Bernard Discharge Diagnosis (1) Acute psychosis: Final Diagnosis [...] couple days. Her last admission was at [facility] on July 05, 2023 for psychosis. [...] Instructions: Important Contact Information You can call [facility] at [phone] any time day or night if you have emergent questions or question regarding discharge instructions. If at any time you are feeling an increase inyour psychiatric symptoms, call your physician or behavioral healthcare provider. If any time you have thoughts of harming yourself or others contact one of the following: Call (available 24/7) Crisis Text Line (available 03/09) text 4HOPE to [phone] [facility] Hope Line (available 8 a.m. Midnight) call [phone] (1975) Regular diet No Activity Restrictions Instructions: Bipolar Disorder (DC), [facility] [place] Behavioral Health DC Instructions, Know your Meds [...] tablet 10 mg PO DAILY Follow Up: [facility] ([place]) [Outside] (Jada Colby DRUG 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 OFFICER, Call this office on Saturday08/12/2023 for a follow up appointment. ) Amanda Bernard APRN, DRUG 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 OFFICER-C [Primary Care Provider] - (Please contact for any medical needs or concerns) Exam Physical Exam Vital Signs: Temp Pulse Resp BP Pulse Ox O2 Del Method 97.3 F L 68 18 125/92 97 Room Air 08/10/23 07:29 08/10/23 07:29 08/10/23 07:29 08/10/23 07:29 08/10/23 07:29 08/10/23 07:29 Documented By: Piyush Pace MD 08/10/23 1056 Signed By: <Electronically signed by Piyush Pace MD> 08/10/23 1112 [facility] Work Phone: 1(432) 900-322206-28-2024 Progress note Author Piyush Pace [facility] August 09, 2023 11:39am Note Date/Time August 09, 2023 11:3 9am [facility] [address] [place] [address] Psychiatry Progress Note Signed Patient: Lyle Bailey MR#: [id number] : 1990 Acct:[id number] Age/Sex: 33 / F Adm Date: 4 Loc: 1S Room: [address] [place] [address] Type : ADM IN Attending Dr: Piyush [...] <Electronically signed by Piyush Pace MD> 08/09/23 1136 [facility] Work Phone: 1(268) 894-483406-27-2024 Progress note Author Piyush Pace [facility] August 08, 2023 12:29pm Note Date/Time August 08, 2023 10:2 6am [facility] [address] [place] [address] Psychiatry Progress Note Signed Patient: Lyle Bailey MR#: [id number] : 1990 Acct:[id number] Age/Sex: 33 / F Adm Date: 4 Loc: Room: [address] [place] [address] Type : ADM IN Attending Dr: Piyush [...] <Electronically signed by Piyush Pace MD> 08/08/23 9407 [facility] Work Phone: 1(972) 363-271906-26-2024 History and physical note Author Piyush Pace [facility] August 07, 2023 12:27pm Note Date/Time August 07, 2023 10:4 1am [facility] [address] [place] [address] Psychiatry H&P Signed Patient: Lyle Bailey MR#: [id number] : 1990 Acct:[id number] Age/Sex: 33 / F Adm Date: 4 Loc: 1S Room: [address] [place] [address] Type: ADM IN Attending Dr: Piyush Pace [...] couple days. Her last admission was at [facility] on July 05, 2023 for psychosis. [...] of Present Illness History of present illness: [facility] Medical History Accidental heroin overdose Anxiety [...] signed by Piyush Pace MD> 08/07/23 1227 [facility] Work Phone: 1(880) 660-702306-25-2024 NotePatient was signed out to me by the outgoing provider. At the time of signout she is medically cleared and awaiting evaluation by P. P called and evaluated the patient and reports to us that earlier today she did tell someone thatshe was, she was self in the head and for this reason they want her admitted to [facility] S psychiatric unit for further evaluation. Patient was transferred in stable condition.[facility] CenterComment on above:Result Comment: Electronically Signed By: Darren Guzman DO\.br\Date and Time Signed: 08/06/23 20:28 [id number] Evaluation + Plan note Diagnostic Tests Pending * Urine Culture 07/14/23 * Chlam/GC/Trich,MOISES 07/14/23 [facility]-02[facility]2024 Hospital Discharge instructions Patient Education 07/14/2023 11:56:22 [...] require a prescription. You can also purchase cmon-htz-twmonds medicines. Medicines may have nicotine in them [...] and encouragement. Call telephone quitlines, such as 0-487-ACYD-NOW, reach out to support groups, or work [...] provider. Document Revised: 01/19/2022 Document Reviewed: 01/19/2022 [employer] Patient Education 2022 [place]. 07/14/2023 11:56:21 Health Risks of Smoking Health [...] Department of Health and Human Services: www.smokefree.gov [place] Lung Association: www.freedomfromsmoking.org [place] Heart Association: www.heart.org Where to find more [...] provider. Document Revised: 01/30/2022 Document Reviewed: 01/30/2022 [employer] Patient Education 2022 [place]. 07/14/2023 11:56:19 BMI for Adults BMI for [...] numbers. This can be done either in Brazilian (U.S.) or metric measurements. Note that charts and online BMI calculators are available to help you find your BMI quickly and easily without having to do these calculations yourself. To calculate your BMI in Brazilian (U.S.) measurements: 1.Measure your weight in pounds [...] Centers for Disease Control and Prevention: www.cdc.gov [place] Heart Association: www.heart.org National Heart, Lung, and Blood [place]: www.nhlbi.nih.gov Summary Body mass index (BMI) is a number that is calculated from a person's weight and height. BMI may help estimate how much of a person's weight is composed of fat. BMI can help identify thosewho may be at higher risk for certain medical problems. BMI can be measured using Brazilian measurements or metric measurements. BMI charts are used to identify whether you are underweight, normal weight, overweight, or obese. This information is not intended to replace advice given to you by your health care provider. Make sure you discuss any questions you have with your health care provider. Document Revised: 10/21/2019 Document Reviewed: 08/28/2019 [employer] Patient Education 2022 [place]. 07/14/2023 11:56:17 Dysuria Dysuria Dysuria is pain [...] Follow these instructions at home: Medicines Take dtxj-frg-fajclkn and prescription medicines only as told by [...] provider. Document Revised: 09/09/2020 Document Reviewed: 09/09/2020 [employer] Patient Education 2022 [place]. Follow Up Care 07/14/2023 09:17:40 With:Amanda BERNARD CNP Address: [address] [place] [address]- When: Unknown [facility] 05-24-2024 Evaluation + Plan [...] was evaluated by [facility] excepted to clear Harris by Dr. Burrows. Kerry Linton DO FAAEM [facility]05-22-2024 Evaluation + Plan noteExtracted from: Title:ED Note [...] Routine Capillary Glucose POC Saline Lock Insert [facility]05-22-2024 Hospital Discharge instructions Patient Education 07/03/2023 10:43:33 Seizure, Adult, Hrqt-ua-Plmn Seizure, Adult A seizure is a sudden [...] Follow these instructions at home: Medicines Take gfuf-fsn-fyqyrma and prescription medicines only as told by [...] medicines are used to treat seizures. Take gsmc-zzx-nbmfrhn and prescription medicines only astold by your doctor. This information is not intended to replace advice given to you by your health care provider. Make sure you discuss any questions you have with your health care provider. Document Revised: 08/05/2020 Document Reviewed: 08/05/2020 [employer] Patient Education 2022 [employer] 07/03/2023 10:43:33 Alcohol Withdrawal Syndrome, Mepg-xc-Askp Alcohol Withdrawal Syndrome Alcohol withdrawal syndrome is [...] groups. Follow these instructions at home: Take hapl-ysh-cyncird and prescription medicines only as told by [...] provider. Document Revised: 04/11/2022 Document Reviewed: 04/11/2022 [employer] Patient Education 2022 [place]. Follow Up Care 07/03/2023 07:31:38 With:Amanda BERNARD Address: [address] [place], [place] [id number] [facility] (1) When:1 to 2 days only if needed [facility]05-20-2024 Hospital Discharge instructions Patient Education 06/30/2023 23:51:55 [...] beverage between alcoholic drinks. General instructions Take phfb-clf-scjutzh and prescription medicines only as told by your health care provider. Do not drive after drinking any amount of alcohol. Plan for a designated hyster driver or another way to go home. [...] the National Suicide Prevention Lifeline at or 080. This is open 24 hours a day. Text the Crisis Text Line at 504578. Summary Alcohol intoxication occurs when a person [...] provider. Document Revised: 04/16/2022 Document Reviewed: 04/16/2022 [employer] Patient Education 2022 [place]. Follow Up Care 06/30/2023 13:43:14 With:Amanda BERNARD Address: [address] [place] [address] Business (1) When:Within 3 Day(s) [facility]05-19-2024 Evaluation + Plan noteExtracted from: Title:ED Note [...] Saline Lock Insert UA with Cult Rflx [facility]05-06-2024 Hospital Discharge instructions Patient Education 06/17/2023 16:05:34 [...] Follow these instructions at home: Medicines Take xjrz-xmb-odnkozp and prescription medicines only as told by [...] provider. Document Revised: 09/09/2020 Document Reviewed: 09/09/2020 [employer] Patient Education 2022 [employer] 06/17/2023 15:52:47 Safe Sex Safe Sex [...] STI. Follow these instructions at home: Take gqff-mvl-mwznill and prescription medicines only as told by [...] provider. Document Revised: 07/04/2020 Document Reviewed: 07/04/2020 [employer] Patient Education 2022 [place]. Follow Up Care 06/17/2023 11:53:17 With:Amanda BERNARD CNP Address: [address] [place], [place] [id number] When: Unknown [facility] 04-23-2024 Hospital Discharge instructions [...] Treatment for this condition includes: Antibiotic medicine. Xklk-mzo-ceelemx medicines to treat discomfort. Drinking enough water [...] Follow these instructions at home: Medicines Take kcfb-xfo-xvfdvxq and prescription medicines only as told by [...] provider. Document Revised: 09/09/2020 Document Reviewed: 09/09/2020 [employer] Patient Education 2022 [place]. Follow Up Care 06/03/2023 20:13:28 With:Amanda BERNARD Address: [address] [place] [address] Business (1) When:Within 3 Day(s) [facility]04-22-2024 Evaluation + Plan noteExtracted from: Title:ED Note Author:Elliott Hicks PA-C te:06/03/23 UTI (urinary tract infection ) (N39.0: Urinary tract infection, site not specified) Orders: cephalexin, 500 mg = 1 cap(s), Oral, q6hr, X 7 day(s), # 28 cap(s), Refills(s) 0, Pharmacy: [facility], 154, cm, 06/03/23 20:33:00 EDT, Height/Length [...] Nausea/Vomiting, # 12 tab(s), Refills(s) 0, Pharmacy: [facility], 154, cm, 06/03/23 20:33:00 EDT, Height/Length Dosing, 71.8, kg, 06/03/23 20:33:00 EDT, Weight Dosing Basic Metabolic Panel Beta hCG Qual CBC w/ Auto Diff eGFR Extra Blackman Tube Extra SST Tube Hepatic Function Panel Lipase Level UA with Cult Rflx Urine Culture Future Appointments Appointment Date:06/04/2023 11:20:00 AM Scheduled Provider:Amanda BERNARD CNP Location:[facility] Appointment Type: Open Diagnostic Tests Pending * Urine Culture 06/03/23 [facility]03-09-2024 Hospital Discharge instructions Patient Education 04/20/2023 05:00:35 [...] beverage between alcoholic drinks. General instructions Take mfro-eub-exxtcuv and prescription medicines only as told by your health care provider. Do not drive after drinking any amount of alcohol. Plan for a designated hyster driver or another way to go home. [...] the National Suicide Prevention Lifeline at or 086. This is open 24 hours a day. Text the Crisis Text Line at 493430. Summary Alcohol intoxication occurs when a person [...] provider. Document Revised: 04/16/2022 Document Reviewed: 04/16/2022 [employer] Patient Education 2022 [place]. Follow Up Care 04/19/2023 21:58:10 With:Martinemary Monzon [phone] Address:Unknown When:04/22/2023 With:Amanda BERNARD Address: [address] [place] [address] [facility] (1) When:04/22/2023 Comments:Follow-up with your primary care provider in 3 to 5 days. If symptoms worsen, do not improve, or new symptoms arise please report back to emergency department for further evaluation. [facility]03-08-2024 Evaluation + Plan noteExtracted from: Title:ED Note [...] Appointments Appointment Date:05/01/2023 08:20:00 AM Scheduled Provider:Amanda BERNARD CNP Location:[facility] Appointment Type: Open [facility]11-26-2023 NoteFisher Johns Hopkins HospitalComment on above:Result Comment: Electronically Signed By: NEVAREZ AGACNP-BC, Elisa\.br\Date and Time Signed: 01/06/23 10:27 EST\.br\Electronically Co-Signed [...] SALOMÓN Singh Within 2 to [address] [address]- Additional Instructions: [facility] Additional Instructions: [facility]: [phone] Additional Instructions: [facility] [employer] [facility] [phone] Additional Instructions: Chemical Dependency: Additional Instructions: Diamante Cleveland Within 2 to [address] [place] [address], [address] [place] [address]- Business (1) Additional Instructions: Alcohol Withdrawal Syndrome, Tlga-go-Jayr Alcohol Use Disorder Alcohol Intoxication, Ffcc-di-Ktij Alcohol Abuse and Nutrition Alcohol Abuse and [...] discussed the case with the hospitalist Elisa Nevarez NP [2] 1. Involuntary movements (R25.9: Unspecified [...] transient in nature. Advised by the emergency last model department supervisor that patient had seized at home but [...] I have been advised by the emergency last model department supervisor that the local rehab program called get [...] and evaluated neurologically. We will ask for social welfare administrator to assist Ordered: Consult to Neurology EEG [...] had emergency department visitations both here in [place] with withdrawal symptoms and had access to Ativan, patient implies over a week ago at a inpatient facility in [place] described above been given phenobarbital which could [...] Cardiac Monitoring CBC w/ Auto Diff Clinical [place] Withdrawal Assessment Clinical [place] Withdrawal Assessment Clinical [place] Withdrawal Assessment Clinical [place] Withdrawal Assessment Communication Order Physician to Nursing [...] discussed the case with the hospitalist Elisa Nevarez DRUG 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 OFFICER 1. Involuntary movements (R25.9: Unspecified abnormal involuntary [...] (E66.9: Obesity, unspecified) Extracted from: Title:ED Note Author:Royer AGUILAR Nerytono Chatman Date :01/05/23 Alcohol abuse with withdrawa l [...] View XR Knee Complete 4+ Views Left [facility]11-25-2023 Hospital Discharge instructions Patient Education 2023 15:26:41 Alcohol Withdrawal Syndrome, Fbdy-nt-Bjju Alcohol Withdrawal Syndrome When a person who [...] away. Follow these instructions at home: Take pofi-mwa-ykbjepo and prescription medicines only as told by [...] provider. Document Revised: 12/22/2021 Document Reviewed: 12/19/2020 [employer] Patient Education 2022 [place]. 2023 15:26:41 Alcohol Use Disorder Alcohol Use [...] facility. Counseling. This may involve motivational interviewing (HI), family therapy, or cognitive behavioral therapy (CBT). [...] physical reaction when you drink (aversion therapy). [place] help groups such as Alcoholics Anonymous (AA). These groups are led by people who have quit drinking. The groups provide emotional support, advice, and guidance. Some people with this condition benefit from a combination of treatments provided by specialized substance use treatment centers. Follow these instructions at home: Medicines Take ypzo-geq-deqnlmi and prescription medicines only as told by [...] Substance Abuse and Mental Health Services Administration: sama.gov Alcoholics Anonymous: aa.org Contact a health care [...] department or: Call your local emergency services (654 in the U.S.). Call a suicide crisis helpline, such as the National Suicide Prevention Lifeline at or 992 in the U.S. This is open 24 hours a day in the U.S. Text the Crisis Text Line at 896014 (in the U.S.). Summary Alcohol use disorder [...] provider. Document Revised: 12/22/2021 Document Reviewed: 12/17/2019 [employer] Patient Education 2022 [place]. 2023 15:26:41 Alcohol Intoxication, Djol-bh-Ypar Alcohol Intoxication Alcohol intoxication happens when you [...] water) between your drinks. General instructions Take hclv-aif-deyprkd and prescription medicines only as told by your doctor. Do not drive after drinking any amount of alcohol. Plan for a designated hyster driver or another way to go home. [...] the National Suicide Prevention Lifeline at or 602 in the U.S. This is open 24 [...] provider. Document Revised: 12/22/2021 Document Reviewed: 12/05/2021 [employer] Patient Education 2022 [place]. 2023 15:26:41 Alcohol Abuse and Nutrition Alcohol [...] Your health care provider or diet and crop nutrition scientist (dietitian) will work with you to design [...] provider. Document Revised: 12/22/2021 Document Reviewed: 12/19/2020 [employer] Patient Education 2022 [place]. 2023 15:26:41 Alcohol Abuse and Dependence Information, [...] for Disease Control and Prevention: www.cdc.gov National [place] on Alcohol Abuse and Alcoholism: www.niaaa.nih.gov Alcoholics [...] the National Suicide Prevention Lifeline at or 440 in the U.S. This is open 24 [...] provider. Document Revised: 12/22/2021 Document Reviewed: 04/07/2019 [employer] Patient Education 2022 [place]. Follow Up Care 2023 00:52:31 With:Anthony SINGLETARY, SALOMÓN Singh Address: [address] [address] When:2 to 4 weeks With:[employer] [facility] Address:Unknown When: Unknown With:[facility]: [phone] Address:Unknown When: Unknown With:[employer] [facility] [phone] Address:Unknown When: Unknown With:Chemical Dependency: Address:Unknown When: Unknown With:Diamante Cleveland Address: [address] [place] [address], [address] [address]- Business (1) When:2 to 4 days [facility]11-25-2023 NoteOhiohealth Nelsonville Health CenterComment on above:Result Comment: Electronically Signed By: Azra HOGAN DO\.br\Date and Time Signed: 01/05/23 08:01 [id number] Evaluation + Plan note Extracted from: Title:ED [...] Troponin 0 Hr. XR Chest Single View [facility]11-22-2023 Hospital Discharge instructions Patient Education 01/02/2023 04:48:50 [...] beverage between alcoholic drinks. General instructions Take zfvj-dou-hytterp and prescription medicines only as told by your health care provider. Do not drive after drinking any amount of alcohol. Plan for a designated hyster driver or another way to go home. [...] provider. Document Revised: 12/22/2021 Document Reviewed: 12/05/2021 [employer] Patient Education 2022 [place]. 01/02/2023 04:48:50 Palpitations Palpitations Palpitations are feelings [...] ask your health careprovider. General instructions Take zqxb-dhw-jojlgmd and prescription medicines only as told by [...] provider. Document Revised: 06/21/2021 Document Reviewed: 06/21/2021 [employer] Patient Education 2022 [place]. Follow Up Care 01/02/2023 00:36:12 With:Diamante Cleveland Address: [address] [place] [address], [address] [place] [phone] Business (1) When:Within 3 Day(s) [facility]11-04-2023 History of Present illness Narrative* Eric Najera LCSW - 12/15/2022 7:38 PM EDT EPAT - Social Work Psychiatric Assessment Arrival Details Mode of Arrival: Ambulatory Admission Source: Other (Comment) Admission Type: Involuntary ([facility], detox Driver) EPAT Assessment Start Date: 12/15/22 EPAT Assessment Start Time: 1422 Name of Light Rail Transit Operator: FRANKLIN Smith History of Present Illness Admission Reason: Psych assessment HPI: 32yr old female with history of bipolar disorder, anxiety disorder, dually diagnosed with alcohol use dependence and opioid use disorder and h/o other substances, presenting to the ED after change of mental status apparent at [facility] which is a detoxification unit within [facility]. The transfer to ED was last night and initial attempt at EPAT psych assess was midnight. She was not able to participate meaningfully for it, so this psych assess was re-ordered this afternoon with enough improvement for this interview. The referral to ED from [facility] was d/t disorientation and hallucinations that were [...] asked specifically about detox hx, she said [facility] 2010. She was at [facility] just a few days ago (12/10). Oriented only to self and generally to location that she's in the hospital. SW Readmission Information Readmission within 30 Days: Yes Previous ED Visit Date and Reason : 12/10 at [facility], then to [facility] until transfer for this assessment Previous Discharge [...] Psychiatric History: Chart history indicates outpatient at [facility]. Pt unable to recall any Past Psychiatric Meds/Treatments: None known per patient. The following is the only info found in chart: Has been treated at [facility]; has not taken any of her psychotropic prescriptions for several months due to weight gain; Chart only shows Vraylar 1.5. Past Violence/Victimization History: unable to assess Current Mental Health Contacts Landscape Photographer Name/Phone Number: unknown Landscape Photographer Last Appointment Date: unknown Provider Name/Phone Number: [facility] Provider Last Appointment Date: November [...] does he live? With his father in [place]. Q: When do you see him? Every [...] Calculated Risk Score: No intervention is necessary [place] Suicide Severity Rating Scale (Screener/Recent Self-Report) 1. [...] does meet criteria for emergency certificate per [facility] 5122.01 Outcome/Disposition Patient's Perception of Outcome Achieved: [...] EPAT Assessment Start Time: 0020 Name of Light Rail Transit Operator: Emy Art [facility] History of Present Illness Admission Reason: Evaluation HPI: 32yr old female with history of mood disorder, anxiety, alcohol use disorder, and Opioid Use Disorder presenting to the ED after change of mental status apparent at [facility] which [facility] a detoxification unit [facility] [...] terrible historian reporting she has been at [facility] for [facility] for the last 9 months . She was actuallyadmitted there on 12/12. She is not reporting thoughts of harming herself or others. SW Readmission Information Readmission within 30 Days: Yes Previous ED Visit Date and Reason : 12/10 at [facility] Previous Discharge Date and Location: 12/10 [...] to assess: Chart history indicates outpatient at [facility] Past Psychiatric Meds/Treatments: per chart stopped medications except for Vraylar 1.5 several months ago due to weight gain Past Violence/Victimization History: unable to assess Current Mental Health Contacts Landscape Photographer Name/Phone Number: unknown Landscape Photographer Last Appointment Date: unknown Provider Name/Phone Number: [facility] Provider Last Appointment Date: November Support System: Immediate family Living Arrangement: House Income Information Employment Status for: Patient Employment Status: Other (Comment) (unable to assess) [facility] Service/Education History Current or Previous Service: None Education Level: (unable to assess) Social/Cultural History Social History: living in [place] with mother and 10yr old son Important [...] now?: No Calculated Risk Score: Potential Risk [place] Suicide Severity Rating Scale (Screener/Recent Self-Report) 1. [...] had been sent to [facility] for detox on 12/12.[facility] nursing [...] is wandering around asking the Tele- Health machine lacer to help her find her son and then says the same of her phone. She wanders in and out of her room and is briefly upset what do you mean I'm not at home . She is oriented to self and somewhat situation. The patient repor ts she is attending [facility] but this in not accurate. She [...] presents with Psychiatric Evaluation Pt is from [facility] and is going through alcohol withdrawal, pt [...] is an 32 y.o. [facility] Chief Complaint Patient presents with Psychiatric Evaluation Pt is from [facility] and is going through alcohol withdrawal, pt [...] or schizoaffective type with some psychotic features. [place] slip was placed to prevent the patient from leaving the department. At the time of signout the patient is pending EPAT placement. Final diagnoses: [F10.939] Alcohol withdrawal syndrome with complication (CMS/HCC) [F31.12] Bipolar affective disorder, currently manic, moderate (CMS/HCC) Procedure Procedures John Tobias MD * Rosa Elena Mondragon MD - 12/14/2022 8:53 PM EDT Emergency [...] presents with Psychiatric Evaluation Pt is from [facility] and is going through alcohol withdrawal, pt [...] provider pending disposition. Procedure Procedures Rosa Elena Mondragon MD * Jessica Mcdowell DO - 12/14/2022 8:53 PM EDT Emergency Medicine Transition of Care Note. I received Lyle Bailey in signout from Dr. Mondragon. Please see the previous ED provider note for all HPI, PE and MDM up to the time of signout at 0100. This is in addition to the primary record. In brief Lyle Bailey is an 32 y.o. female presenting for Chief Complaint Patient presents with Psychiatric Evaluation Pt is from [facility] and is going through alcohol withdrawal, pt states she has been seeing people who are not there. Pt is also having some anxiety. Pt states she's had seizures before when she goes through DT's At the time of signout we were awaiting: EPAT to place the patient. ED Course as of 12/16/22 0251 SatDec 14, 2022 2244 Comprehensive Metabolic Panel(!) [...] Procedures Jessica Mcdowell DO * Rosa Elena Mondragon MD - 12/14/2022 8:53 PM EDT Emergency [...] presents with Psychiatric Evaluation Pt is from [facility] and is going through alcohol withdrawal, pt [...] transfer. She has now been accepted to [facility] and will be transferred there for further psychiatric work-up. Procedure Procedures Rosa Elena Mondragon MD documented in this [facility] Work Phone: 1(918) 868-721111-03-2023 Miscellaneous Notes* Significant Event - John Tobias [...] of a correctional facility, provided that the tghbpg-glc-dolor period shall be extended by the length of any hospitalization or incarceration of the person thatoccurred within the zjniqh-kaw-tlydy period. (ii) Within the forty-eight months prior to the filing of an affidavit seeking court-ordered treatment of the person under section 5122.111 of the Revised Code, the lack of compliance resulted in oneor more acts of serious violent behavior toward self or others or threats of, or attempts at, serious physical harm to self or others, provided that the enmom-bnfoo-ldlgs period shall be extended by the length of any hospitalization or incarceration of the person that occurred within the jmtuk-iygfn-nvana period. (c) The person, as a result [...] licensed physician, licensed clinical psychologist, health or residential care officer, retail account executive or deputy probation officer. (Statement shall include the circumstances under which [...] the emergency department for psychiatric evaluation from [place]. She wasbeing treated for alcohol withdrawal. On my evaluation she appears tired, agitated, she is pacing, she is unable to carry on a linear and coherent conversation. She appears internally stimulated. 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 John Tobias MD 12/15/2022 Place of Employment: [facility] STATEMENT OF OBSERVATION BY PSYCHIATRIST, LICENSED PHYSICIAN, OR LICENSED CLINICAL PSYCHOLOGIST, IFAPPLICABLE Place of Observation (e.g., [facility], general hospital, office, emergency facility) (If applicable, please complete) John Tobais MD 12/15/2022 * Significant Event - Rosa Elena Mondragon MD - 12/14/2022 8:53 PM EDT Application [...] of a correctional facility, provided that the ebmsov-jvn-eeucy period shall be extended by the length of any hospitalization or incarceration of the person thatoccurred within the zozvti-pyx-lzhhb period. (ii) Within the forty-eight months prior to the filing of an affidavit seeking court-ordered treatment of the person under section 5122.111 of the Revised Code, the lack of compliance resulted in oneor more acts of serious violent behavior toward self or others or threats of, or attempts at, serious physical harm to self or others, provided that the gwwny-elrpa-jttqa period shall be extended by the length of any hospitalization or incarceration of the person that occurred within the kkxcn-xvwgp-ggdxn period. (c) The person, as a result [...] licensed physician, licensed clinical psychologist, health or residential care officer, retail account executive or deputy probation officer. (Statement shall include the circumstances under which [...] the emergency department for psychiatric evaluation from [place]. She wasbeing treated for alcohol withdrawal. On my evaluation she appears tired, agitated, she is pacing, she is unable to carry on a linear and coherent conversation. She appears internally stimulated. 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 Rosa Elena Mondragon MD 12/16/2022 Place of Employment: [facility] STATEMENT OF OBSERVATION BY PSYCHIATRIST, LICENSED PHYSICIAN, OR LICENSED CLINICAL PSYCHOLOGIST, IFAPPLICABLE Place of Observation (e.g., [facility], general hospital, office, emergency facility) (If applicable, please complete) Rosa Elena Mondragon MD 12/16/2022 documented in this [facility] Work Phone: 1(475) 107-430411-03-2023 Note* Significant Event - John Tobias MD [...] of a correctional facility, provided that the kwwwja-vyz-xmlly period shall be extended by the length of any hospitalization or incarceration of the person thatoccurred within the soavnf-hxp-sopum period. (ii) Within the forty-eight months prior to the filing of an affidavit seeking court-ordered treatment of the person under section 5122.111 of the Revised Code, the lack of compliance resulted in oneor more acts of serious violent behavior toward self or others or threats of, or attempts at, serious physical harm to self or others, provided that the rypir-zfzco-hhdpk period shall be extended by the length of any hospitalization or incarceration of the person that occurred within the acste-bhzsz-uwzsd period. (c) The person, as a result [...] licensed physician, licensed clinical psychologist, health or residential care officer, retail account executive or deputy probation officer. (Statement shall include the circumstances under which [...] the emergency department for psychiatric evaluation from [place]. She wasbeing treated for alcohol withdrawal. On my evaluation she appears tired, agitated, she is pacing, she is unable to carry on a linear and coherent conversation. She appears internally stimulated. 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, [facility], office, emergency facility) (If applicable, please complete) John Tobias MD 12/15/2022 [facility] Work Phone: 1(658) 384-169111-03-2023 Note* Significant Event - Rosa Elena Mondragon MD - 12/14/2022 8:53 PM EDT Application [...] of a correctional facility, provided that the icfweh-hcg-pboxd period shall be extended by the length of any hospitalization or incarceration of the person thatoccurred within the sfoeml-nap-hdnuw period. (ii) Within the forty-eight months prior to the filing of an affidavit seeking court-ordered treatment of the person under section 5122.111 of the Revised Code, the lack of compliance resulted in oneor more acts of serious violent behavior toward self or others or threats of, or attempts at, serious physical harm to self or others, provided that the ajgxv-pulji-srula period shall be extended by the length of any hospitalization or incarceration of the person that occurred within the lmrhx-jkaxp-euqfi period. (c) The person, as a result [...] licensed physician, licensed clinical psychologist, health or residential care officer, retail account executive or deputy probation officer. (Statement shall include the circumstances under which [...] the emergency department for psychiatric evaluation from [place]. She wasbeing treated for alcohol withdrawal. On my evaluation she appears tired, agitated, she is pacing, she is unable to carry on a linear and coherent conversation. She appears internally stimulated. 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 Rosa Elena Mondragon MD 12/16/2022 Place of Employment: [facility] STATEMENT OF OBSERVATION BY PSYCHIATRIST, LICENSED PHYSICIAN, OR LICENSED CLINICAL PSYCHOLOGIST, IFAPPLICABLE Place of Observation (e.g., [facility], general hospital, office, emergency facility) (If applicable, please complete) Rosa Elena Mondragon MD 12/16/2022 [facility] Work Phone: 1(128) 226-489210-30-2023 Hospital Discharge instructions Patient Education 12/10/2022 21:57:34 [...] beverage between alcoholic drinks. General instructions Take rcdf-gwo-wevycpj and prescription medicines only as told by your health care provider. Do not drive after drinking any amount of alcohol. Plan for a designated hyster driver or another way to go home. [...] the National Suicide Prevention Lifeline at or 968 in the U.S. This is open 24 [...] provider. Document Revised: 12/22/2021 Document Reviewed: 12/05/2021 [employer] Patient Education 2022 [place]. Follow Up Care 12/10/2022 17:22:08 With:[facility] Address:Unknown When:12/13/2022 21:39:40 With:Diamante Cristofer Address: [address] [place] [address], [address] [place] [phone] Business (1) When:Within 3 Day(s) [facility]10-30-2023 Evaluation + Plan noteExtracted from: Title:ED Note Author:Eric Forbes DO Date: Alcohol withdrawal (F10.939: Alcohol use, unspecified with withdrawal, unspecified) Ordered: lorazepam, 1 mg = 1 tab(s), Oral, q8hr, Take one by mouth every eight hours as needed, X 4 day(s), # 12 tab(s), Refills(s) 0, Pharmacy: [facility], 157, cm, 12/10/22 8:08:00 EDT, Height/Length [...] nausea, # 10 tab(s), Refills(s) 0, Pharmacy: [facility], 157, cm, 12/10/22 8:08:00 EDT, Height/Length [...] With Cult Reflex XR Chest Single View [facility]10-30-2023 Evaluation + Plan noteExtracted from: Title:ED Note Author:Fabricio Gao PA-C te:12/10/22 1. Alcohol intoxication (F10 .929: Alcohol use, unspecified with intoxication, unspecified) Orders: lorazepam, 2 mg = 2 tab(s), Tab, Oral, Once, Stop date 12/10/22 17:27:00 EDT, STAT, Start date 12/10/22 17:27:00 EDT, 12/10/22 17:27:00 EDT Ethanol Level [facility]10-30-2023 Hospital Discharge instructions Patient Education 12/10/2022 11:47:31 [...] groups. Follow these instructions at home: Take skzw-rhl-abklhtb and prescription medicines (including vitamin supplements) only [...] provider. Document Revised: 12/22/2021 Document Reviewed: 12/19/2020 [employer] Patient Education 2022 [place]. Follow Up Care 12/10/2022 07:57:33 With:[facility] Address:Unknown When:12/13/2022 11:42:52 With:Diamante Cleveland Address: [address] [place] [address], [facility] [address] [place] [phone] [facility] (1) When:Within 3 Day(s) [facility]10-20-2023 Hospital Discharge instructions Patient Education 11/30/2022 14:00:43 [...] numbers. This can be done either in Brazilian (U.[place].) or metric measurements. Note that charts and online BMI calculators are available to help you find your BMI quickly and easily without having to do these calculations yourself. To calculate your BMI in Brazilian ([place].) measurements: 1.Measure your weight in pounds [...] Centers for Disease Control and Prevention: www.cdc.gov [place] Heart Association: www.heart.org National Heart, Lung, and Blood [place]: www.nhlbi.nih.gov Summary Body mass index (BMI) is a number that is calculated from a person's weight and height. BMI may help estimate how much of a person's weight is composed of fat. BMI can help identify thosewho may be at higher risk for certain medical problems. BMI can be measured using Brazilian measurements or metric measurements. BMI charts are used to identify whether you are underweight, normal weight, overweight, or obese. This information is not intended to replace advice given to you by your health care provider. Make sure you discuss any questions you have with your health care provider. Document Revised: 10/21/2019 Document Reviewed: 08/28/2019 [employer] Patient Education 2022 [place]. 11/30/2022 14:00:38 Dysuria Dysuria Dysuria is pain [...] Follow these instructions at home: Medicines Take icqu-zkr-yunvjtc and prescription medicines only as told by [...] provider. Document Revised: 09/09/2020 Document Reviewed: 09/09/2020 [employer] Patient Education 2022 [place]. 11/30/2022 14:00:37 Safe Sex Safe Sex Practicing [...] STI. Follow these instructions at home: Take nshg-pxz-knttkye and prescription medicines only as told by [...] Document Reviewed: 07/04/2020 Elsevier Patient Education 2022 [employer] Follow Up Care 11/30/2022 13:08:52 With:Cristofer HAYES Diamante Yung Address: [address] [place] [address], [address] [place] [address]- When: Unknown [facility] 10-20-2023 Evaluation + Plan note Diagnostic Tests Pending * Chlamydia/Gonococcus, MOISES 11/30/22 * Urine Culture 11/30/22 [facility]10-03-2023 Evaluation + Plan note Diagnostic Tests Pending * Estradiol Level 11/13/22 * Testosterone F&T 11/13/22 * HIV Screen 4th Generation wRfx 11/13/22 * Hepatitis B Surface Antigen 11/13/22 * RPR with Conf Rfx 11/13/22 * FSH Level 11/13/22 * DHEAS 11/13/22 [facility]10-03-2023 Evaluation + Plan note Diagnostic Tests Pending * Thyroid Perox.tpo Ab 11/13/22 [facility]09-24-2023 Hospital Discharge instructions Patient Education 11/04/2022 16:28:02 [...] health careprovider. Avoid caffeine, alcohol, and certain bjcf-brp-yjywhdn cold medicines. These may make you feel worse. Ask your pharmacist which medicines to avoid. General instructions Take jvna-tqe-pucparz and prescription medicines only as told by [...] Depression Association of [place] (ADAA): www.adaa.org National [place] on Mental Illness (SHEY): www.shey.org Contact a [...] department or: Call your local emergency services (397 in the [place].). Call a suicide crisis helpline, such as the National Suicide Prevention Lifeline at or 694 in the U.S. This is open 24 hours a day in the [place] Text the Crisis Text Line at 316097 (in the [place].S.). Summary Taking steps to [...] provider. Document Revised: 08/23/2021 Document Reviewed: 05/21/2021 [employer] Patient Education 2022 [place]. Follow Up Care 11/04/2022 12:21:25 With:[facility] Address:Unknown When:11/07/2022 15:59:09 With:Diamante Cleveland Address: [address] [place] [address], [address] [place] [phone] [facility] (1) When:11/07/2022 15:58:15 Comments:Make sure to follow-up with your primary doctor for blood pressure check as well to make sure you are not developing hypertension. Follow-up with [facility]. Return to the emergency room if your symptoms recur or any new symptoms. [facility]09-24-2023 Evaluation + Plan noteExtracted from: Title:ED Note Author:Gladys Saini M.D. te:11/04/22 1. Anxiety (F41.9: Anxiety d isorder, unspecified) Orders: hydrOXYzine, 50 mg = 1 mL, Injection, IntraMuscular, Once, Stop date 11/04/22 12:35:00 EDT, STAT, Start date 11/04/22 12:35:00 EDT, 11/04/22 12:35:00 EDT hydrOXYzine, 1-2 cap(s), Oral, QID, PRN as needed for anxiety, # 30 cap(s), Refills(s) 0, Pharmacy: [facility], 158, cm, 11/04/22 12:27:00 EDT, Height/Length Dosing, 74.7, kg, 11/04/22 12:27:00 EDT, Weight Dosing lorazepam, 1 mg = 1 tab(s), Tab, Oral, Once, Stop date 11/04/22 13:36:00 EDT, STAT, Start date 11/04/22 13:36:00 EDT, 11/04/22 13:36:00 EDT Automated Diff Basic Metabolic Panel CBC w/ Auto Diff eGFR [facility]07-18-2023 Hospital Discharge instructions Follow Up Care 08/28/2022 09:06:34 With:Lorie Morocho MD, [facility] Address: [address] [place] [phone] When: only if needed [facility] 07-08-2023 Evaluation + Plan [...] SALOMÓN Singh Within 2 to 4 weeks [address] [place] [address]- Additional Instructions: Illegal Drug Use Information, Adult Toxic Metabolic Encephalopathy Addendum by Matthias SINGLETARY, Kam Medrano on August 18, 2022 09:11:10 EDT Patient [...] benzodiazepines which I believe is the primary hyster driver of above. We will continue as [...] plan. Extracted from: Title:ED Note Author:Megan Darren TalaveraCharisma Date :08/16/22 Active substance abuse (F19. 10: [...] After 24 Hours Restraint Initiate Non-Violent / Par-Iefb-Pdzwwbvigrf Behavior Restraint Monitoring Non-Violent / Non-Self- Destructive Behavior Restraint Progress Note Routine Capillary Glucose POC Salicylate Level Saline Lock Insert Straight Cath Troponin 0 Hr. UA With Cult Reflex XR Chest Single View Future Appointments Appointment Date:10/17/2022 09:20:00 AM Scheduled Provider:Amanda BERNARD CNP Location:[facility] Appointment Type:[facility]07-08-[address]Fish[address] Agnes HospitalComment on above:Result Comment: Electronically Signed By: Matthias SINGLETARY, Kam Medrano\.br\Date and Time Signed: 08/18/22 09:11 [id number] Hospital Discharge instructions Patient Education 08/18/2022 08:40:12 [...] values. ?Lying and crime, such as stealing. [facility] or nursing home. This can affect your ability to find [...] Administration (SAMHSA): ?Treatment finder: https://www.samhsa.gov/find-help ?National helpline: 8-804-735-HELP (1958) Contact a health care provider if: You [...] department or: Call your local emergency services (128 in the [place].S[place] Call a suicide crisis helpline, such as the National Suicide Prevention Lifeline at or 422 in the U.S. This is open 24 hours a day in the [place] Text the Crisis Text Line at 174200 (in the [place].S.). Summary Illegal drugs are [...] provider. Document Revised: 08/23/2021 Document Reviewed: 05/26/2021 [employer] Patient Education 2022 [employer]. 08/18/2022 08:40:02 Toxic Metabolic Encephalopathy Toxic [...] elderly, have dementia, or live in a chcf. Are not getting enough fluids. Have poor [...] Follow these instructions at home: Medicines Take tcrt-wry-xtskddm and prescription medicines only as told by your health care provider. Do not start taking any new medicines, including dphz-pdn-fgsxgln medicines, without first checkingwith your health care [...] provider. Document Revised: 11/15/2020 Document Reviewed: 11/15/2020 [employer] Patient Education 2022 [place]. Follow Up Care 08/16/2022 23:31:02 With:Anthony SINGLETARY, SALOMÓN Singh Address: [address] [place] [address]- When:2 to 4 weeks [facility]07-07-2023 NoteFisher [facility] HospitalComment on above:Result Comment: Electronically Signed By: Matthias SINGLETARY, Kam Medrano\.br\Date and Time Signed: 08/17/22 11:48 [id number] Hospital Discharge instructions Follow Up Care 07/17/2022 11:17:20 With:Amanda BERNARD CNP Address: [address] [place] [id number]- When:Within 2 Month(s) [facility] 04-30-2023 Discharge summary Author Gautam arteaga [facility] June 10, 2022 7:53am Note Date/Time June 10, 2022 7:5 2am [facility] [address] [place] [address] Discharge Summary Signed Patient: Lyle Bailey MR#: [id number] : 1990 Acct:[id number] Age/Sex: 32 / F Adm Date: 3 Loc: 1S Room: [address] [place] [address]: Nguyễn Burrows MD Copies to: MD Amanda Escamilla APRN, CNP~ Providers Date of Discharge: 06/10/22 Discharging Provider: Nguyễn Burrows Primary Care Provider: Amanda Bernard Consults: 06/07/22 17:43 Consult to Case Management [...] tablet by mouth once daily Follow Up: [facility] Hotline [Outside] [facility] [Outside] Amanda Bernard APRN, DRUG 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 OFFICER-C [Primary Care Provider] - (Please schedule an appt with your primary provider for any medical needs. ) Documented By: Gautam Burrows MD 3 0749 Signed By: <Electronically signed by Gautam Burrows MD> 06/10/22 0759 [facility] Work Phone: 1(143) 487-577404-29-2023 Progress note Author Gautam arteaga [facility] June 09, 2022 7:51am Note Date/Time June 09, 2022 7:5 1am [facility] [address] [place], [place] [id number] Psychiatry Progress Note Signed Patient: Lyle Bailey MR#: [id number] : 1990 Acct:[id number] Age/Sex: 32 / F Adm Date: 3 Loc: 1S Room: 8J8605-5 Type : ADM IN Attending Dr: Nguyễn [...] signed by Gautam Burrows MD> 06/09/22 0751 [facility] Work Phone: 1(232) 667-505804-28-2023 History and physical note Author Gautam arteaga [facility] June 08, 2022 9:58am Note Date/Time June 08, 2022 9:5 6am [facility] [address] [place] [address] Psychiatry H&P Signed Patient: Lyle Bailey MR#: [id number] : 1990 Acct:[id number] Age/Sex: 32 / F Adm Date: 3 Loc: Room: [address] [place] [address] Type: ADM IN Attending Dr: Nguyễn Burrows [...] and has 1 son. Pt recently here [id number] Meds Medications and Allergies Allergies codeine Allergy [...] Appearance Clear Urine pH 5.5 Ur Specific [place] 1.032 H Urine Protein 30 H Urine [...] <Electronically signed by Gautam Burrows MD> 06/08/22 0993 [facility] Work Phone: 1(883) 162-454803-14-2023 Evaluation note* Encounter Date Diagnosis Assessment Notes [...] hepatic coma, unspecified chronicity (ICD-10 - B19.11) [facility] Other 01-31-2023 Hospital Discharge instructions* Discharge Instructions* Leandro Rojas MD - 03/13/2022 1:22 PM EST You were seen in the emergency department for evaluation by [facility]. EKG was normal. Your vitalsigns were [...] going through withdrawal. documented in this encounterBON [employer] Phone: 1(771) 249-694308-09-2022 Hospital Discharge instructions Patient Education 09/19/2021 10:35:36 Steps to Quit Smoking, Lyyr-sq-Mwmx Steps to Quit Smoking Smoking tobacco is [...] a prescription, and some you can buy kocp-fkk-tedmqwx. Some medicines may contain a drug called [...] and encourage you. Call a phone quitline (4-514-GCBJNOW), reach out to support groups, or work [...] 11/24/2009 Document Revised: 04/17/2019 Document Reviewed: 04/18/2019 [employer] Patient Education 2020 [employer] 09/19/2021 10:35:35 Obesity, Adult, Bgyv-kl-Acgf Obesity, Adult Obesity is having too much [...] food choices, such as grocery stores and [place]. What are the signs or symptoms? The [...] eat. ?How much exercise you get. Take sbsx-haz-hzvwbuc and prescription medicines only as told by [...] 04/21/2012 Document Revised: 10/02/2018 Document Reviewed: 10/02/2018 [employer] Patient Education 2019 [place]. [facility] 06-16-2022 Hospital Discharge instructions Patient Education 07/26/2021 22:07:43 Hepatitis C, Unwe-op-Tjoy Hepatitis C Hepatitis C is a liver [...] Follow these instructions at home: Medicines Take lomd-qgq-virmjge and prescription medicines only as told by your doctor. Take your antiviral medicine as told by your doctor. Do not stop taking the antiviral medicine evenif you start to feel better. Do not take any new medicines unless your doctor says that this is okay. This includes kcqw-sdr-oqttaon medicines and control pills. Activity Rest when [...] not have soap and water, use hand fleet administrative assistant. Do not share needles or syringes. Practice safe sex and use condoms. Do not handle blood or body fluids without gloves or other protection. Avoid getting tattoos or piercings in places that are not clean. General instructions Do not share toothbrushes, nail clippers, or razors. Wash your hands often with soap and water. If you do not have soap and water, use hand fleet administrative assistant. Cover any cuts or open sores on [...] 01/10/2009 Document Revised: 01/10/2018 Document Reviewed: 03/05/2017 [employer] Patient Education 2020 [place]. 07/26/2021 22:07:43 Constipation, Adult Constipation, Adult Constipation [...] in fiber, or overly processed, such as haitian fries, hamburgers, cookies, candies, and soda. Drink enough fluid to keep your urine clear or pale yellow. General instructions Exercise regularly or as told by your health care provider. Go to the restroom when you have the urge to go. Do not hold it in. Take gkqf-hfn-qbqmjmd and prescription medicines only as told by [...] 10/26/2004 Document Revised: 01/10/2018 Document Reviewed: 07/18/2016 [employer] Patient Education 2020 [place]. 07/26/2021 22:07:43 Abdominal Pain, Adult Abdominal Pain, [...] Follow these instructions at home: Medicines Take gifi-ctj-aniklxo and prescription medicines only as told by [...] Watch your condition for any changes. Take pxik-vaz-voliwjm and prescription medicines only as told by [...] 11/07/2005 Document Revised: 06/08/2019 Document Reviewed: 06/08/2019 [employer] Patient Education 2020 [place]. Follow Up Care 07/26/2021 18:02:56 With:Amanda BERNARD Address: [address] [place], [place] [phone] Business (1) When:07/29/2021 21:42:35 Comments:Follow-up with your primary care provider in 3 to 5 days. If symptoms worsen, do not improve, new symptoms arise please report back to emergency department immediately. Take MiraLAX daily to help promote a normal bowel movement. [facility]05[facility]24[facility]22 Hospital Discharge instructions Patient Education 07/04/2021 15:44:46 Steps to Quit Smoking, Waul-qa-Zwys Steps to Quit Smoking Smoking tobacco is [...] a prescription, and some you can buy [id number]-nqjhvvl. Some medicines may contain a drug called [...] 11/24/2009 Document Revised: 04/17/2019 Document Reviewed: 04/18/2019 [employer] Patient Education 2020 [place]. 07/04/2021 15:44:45 Obesity, Adult, Lzbv-se-Zmbv Obesity, Adult Obesity is having too much [...] food choices, such as grocery stores and [place] markets. What are the signs or symptoms? [...] eat. ?How much exercise you get. Take rvtu-cor-fzcpdbi and prescription medicines only as told by [...] 04/21/2012 Document Revised: 10/02/2018 Document Reviewed: 10/02/2018 [employer] Patient Education 2020 [place]. Follow Up Care 06/19/2021 13:30:22 With:Amanda BERNARD CNP Address: [address] [place] [id number] When:Within 6 Month(s) [facility] 12-27-2021 NoteAdmission Information Patient: Lyle Bailey : 1990 Date of Admission: 02/05/2021 16:34:16 Date of Discharge: 02/06/2021 Code Status: Full Resuscitation PCP: Consult: Follow Up with Provider: With: Address: When: [facility] [address] [place] [address] [place] [address] 02/14/2021 09:45:00 Comments: Counseling Appointment with Nora [...] signed by Deacon Arnold MD 02/06/21 15:24 [facility]12-26-2021 Note Chief Complaint Alcohol intoxication, wishing [...] the facility. She has never been admitted [facility]. She does live in [place], [place]. At time of evaluation, there is [...] DTs, seizures Disposition Health Care Power of Link Trainer Maintenance Worker or next of kin: Manisha Bailey, Family [...] 2 mg= 1 mL, IV Push, q15min, [place] (more content not included)... [facility] Author Gautam arteaga [facility] June 10, 2022 7:53am Note Date/Time June 10, 2022 7:5 2am [facility] [address] [place] [id number] Discharge Summary Signed Patient: Lyle Bailey MR#: [id number] : 1990 Acct:[id number] Age/Sex: 32 / F Adm Date: 3 Loc: 1S Room: [address] [place] [address]: Nguyễn Burrows MD Copies to: MD Amanda Escamilla APRN, ORACLE E BUSINESS DEVELOPER~ Providers Date of Discharge: 06/10/22 Discharging Provider: Nguyễn Burrows Primary Care Provider: Amanda Bernard Consults: 06/07/22 17:43 Consult to Case Management [...] tablet by mouth once daily Follow Up: [facility] [Outside] [facility] [Outside] Amanda Bernard APRN, DRUG 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 OFFICER-C [Primary Care Provider] - (Please schedule an appt with your primary provider for any medical needs. ) Documented By: Gautam Burrows MD 3 [id number] Signed By: <Electronically signed by Gautam Burrows MD> 06/10/22 0753 [facility] Work Phone: Evaluation + Plan note Future Appointments Appointment Date:12/27/2021 03:00:00 PM Scheduled Provider:Amanda BERNARD CNP Location:[facility] Appointment Type:[facility] Evaluation + Plan note Future Appointments Appointment Date:12/27/2021 03:00:00 PM Scheduled Provider:Amanda BERNARD CNP Location:[facility] Appointment Type: Open Diagnostic Tests Pending * CBC w/ Auto Diff 07/04/21 * TSH With T4fr Reflex 07/04/21 [facility] App[facility]ments Appointment Date:04/26/2022 01:40:00 PM Scheduled Provider:Amanda BERNARD CNP Location:[facility] Appointment Type:[facility] Evaluation + Plan note Future Appointments Appointment Date:10/17/2022 09:20:00 AM Scheduled Provider:Amanda BERNARD CNP Location:[facility] Appointment Type:[facility] Evaluation + Plan note Future Appointments Appointment Date:10/17/2022 09:20:00 AM Scheduled Provider:Amanda BERNARD CNP Location:[facility] Appointment Type: Open Diagnostic Tests Pending * Throat Culture 08/28/22 [facility] Future Appointments Appointment Date:06/20/2023 01:20:00 PM Scheduled Provider:Amanda BERNARD CNP Location:[facility] Appointment Type: ER/Hospital Follow Up [facility] Evaluation + Plan note Future Appointments Appointment Date:06/20/2023 01:20:00 PM Scheduled Provider:Amanda BERNARD CNP Location:[facility] Appointment Type: ER/Hospital Follow Up Diagnostic Tests Pending * Chlam/GC/Trich,MOISES 06/17/23 * Vaginitis/Vaginosis, DNA Probe 06/17/23 * Urine Culture 06/17/23 [facility] Future Appointments Appointment Date:08/21/2023 08:20:00 AM Scheduled Provider:Amanda BERNARD CNP Location:[facility]ment [facility]: [facility]* Diagnosis Alcohol withdrawal syndrome with complication (HCC)- Primary documented in this encounter [employer] Work Phone: evalyecsuj note* Diagnosis Temporary high blood pressure- Primary Elevated blood pressure reading without diagnosis of hypertension documented in this encounter [employer] Work Phone: evalkrfhwe noteNo assessment information available [facility] Work Phone: evaluation note* Diagnosis Acute alcoholic intoxication with complication (HCC)- Primary documented in this encounter [employer] Work Phone: evaluation note* Diagnosis Encounter for psychological evaluation- Primary documented in this encounter [employer] Phone: evaluation note* Diagnosis Onset Date Resolution Status Alcohol abuse acute Altered mental status acute Suicidal ideation acute [facility] Work Phone: Evaluation note* Diagnosis Onset Date Resolution Status Alcohol abuse acute Altered mental status acute Anxiety acute Depression acute Hep C w/o coma, chronic acut e Suicidal ideation acute [facility] Work Phone: Evaluation note* Diagnosis Alcohol withdrawal syndrome with complication (CMS/HCC)- Primary Bipolar affective disorder, currently manic, moderate (CMS/HCC) Bipolar I disorder, most recent episode (or current) manic, moderate documented in this encounter [facility] Work Phone: Evaluation note* Diagnosis Onset Date Resolution Status Acute psychosis acute [facility] Work Phone: Evaluation note* Author Kanchan Sanchez [facility] Authored November 07, 2023 9:56am 33-year-old female referred to the GI clinic for evaluation of constipation and hepatitis C. + Constipation + Hematochezia History of hepatitis C, treatment na ve Will recheck HCVRNA, if positive will initiate antiviral therapy. Will check viral hepatitis serologies and HIV. Will arrange for ultrasound liver. Will arrange for FibroScan. [facility] Work Phone: History and physical note Author Gautam arteaga [facility] June 08, 2022 9:58am Note Date/Time June 08, 2022 9:5 6am [facility] [address] [place] [address] Psychiatry H&P Signed Patient: Lyle Bailey MR#: [id number] : 1990 Acct:[id number] Age/Sex: 32 / F Adm Date: 3 Loc: Room: [address] [place] [address] Type: ADM IN Attending Dr: Nguyễn Burrows [...] and has 1 son. Pt recently here [id number] Meds Medications and Allergies Allergies codeine Allergy [...] Appearance Clear Urine pH 5.5 Ur Specific [place] 1.032 H Urine Protein 30 H Urine [...] signed by Gautam Burrows MD> 06/08/22 0958 [facility] Work Phone: Histgtq general Narrative - Reported* Type Description Date Medical History HX OF HEROIN ABUSE Medical History manic depression Medical History bipolar Medical History anxiety Surgical History No know Surgical history Hospitalization History CHILD X'S 1 [facility] Other Hospital course Narrative No data available for this section [facility] Hospital Discharge instructions* Instructions* Fredy Kay, - 05/03/2021 Call today or tomorrow for a follow up with [facility] for alcohol detoxification or follow up with No primary care provider on file.. Stop drinking alcohol. Call [facility] [phone] or go to [facility] at 7am [...] Care Everywhere. * Alcohol Detoxification and Withdrawal (Brazilian) [facility] [employer] Work Phone: Hospital Discharge instructions No data available for this section [facility] Additional Instructions Follow-up with outpatient detox Return if symptoms are worsePrem[facility] Work Phone: Hospital Discharge instructions Additional Instructions Follow-up with mental health Return to the ED if you develop worsening symptoms or concernsPrem[facility] Work Phone: Hospital Discharge instructions* Attachments The following attachments cannot be sent through Care Everywhere. * Alcohol Intoxication: Acute (Brazilian) [facility] Work Phone: Hospital Discharge instructions Additional Instructions Follow-up with your primary care doctor Return to ED if develop worsening symptoms or concernsFirSamar[facility] Work Phone: Hospital Discharge instructions Additional Instructions Do not use drugs or alcoholPrem[facility] Work Phone: Hospital Discharge instructions Additional Instructions If your symptoms return/worsen or you develop any further concerns or symptoms please see your doctor or return to the emergency department immediately.[facility] Work Phone: Hospital Discharge instructions Additional Instructions Regular Diet No Activity RestrictionsPremier Health [facility] Work Phone: Hospital Discharge instructions Additional Instructions Follow-up with your primary care doctor Return to ED for develop worsening symptoms or concernsPrem[facility] Work Phone: Hospital Discharge instructions Additional Instructions Patient is medically stable for detox at this time. Please go directly to detox. Please follow close with your primary care doctor. Please return to the emergency department if you develop any worsening or concerning symptoms. Please use the nausea medicine as needed. [facility] Work Phone: Hospital Discharge instructions Additional Instructions Avoid the use of alcohol Return alcohol detox Return if any problems persist or worsenTrihealth [facility] Work Phone: Hospital Discharge instructions Additional Instructions Follow-up with your primary care doctor Return to ED for present symptoms or concernsTrihealth [facility]cc[facility] Work Phone: Progress note No data available for this section [facility] Author Gautam arteaga [facility] June 09, 2022 7:51am Note Date/Time June 09, 2022 7:5 1am [facility] [address] [place] [address] Psychiatry Progress Note Signed Patient: Lyle Bailey MR#: [id number] : 1990 Acct:[id number] Age/Sex: 32 / F Adm Date: 3 Loc: Room: [address] [place] [address] Type : ADM IN Attending Dr: Nguyễn [...] signed by Gautam Burrows MD> 06/09/22 0751 [facility] Work Phone: Reason for referral (narrative) [facility]: [facility] [place] Summary Purpose Family History No Family History [...] family member Depression Unknown father Depression Unknown Hypertension Unknown Unknown Advance Directives No Advanced Directives Records FoundDocuments on File Type Date Recorded Patient Manager Special Events Expl anation Advance Directives and Living Will Power of Link Trainer Maintenance Worker Documents on File Type Date Recorded Patient Manager Special Events Expl anation ACP-Advance Directive ACP-Power of Link Trainer Maintenance Worker Advance Directive Response Recorded Date/ Time Advance Directives No December 10:11am Advance Directive Response Recorded Date/ Time Advance Directives No December 11:11am Discharge Instructions * Instructions* Mundo Guzman MD - 11/01/2018 Venous Doppler is scheduled for Saturday. Go to scheduled appointment. Take Xarelto as prescribed. * Attachments The following attachments cannot be sent through Care Everywhere. * DVT (Deep Vein Thrombosis) (Brazilian) documented in this encounter* Attachments The following attachments cannot be sent through Care Everywhere. * Panic Attacks (Brazilian) documented in this encounter* Instructions* Crescencio Flores MD - 03/11/2020 MEDICATIONS PRESCRIBED. RETURN FOR NEW OR WORSENING SYMPTOMS, THOUGHTS OR WANTING TO HURT SELF/ OTHERS. * Attachments The following attachments cannot be sent through Care Everywhere. * Anxiety Disorder (Brazilian) documented in this encounter* Attachments The following attachments cannot be sent through Care Everywhere. * Anxiety Disorder (Brazilian) documented in this encounter Assessments Diagnosis Pain [...] alcohol withdrawal abd pain Vomiting Chief Complaint [place] Slip. Brief Psychotic Disorder [place] Slip. Brief Psychotic Disorder Reason for Visit Acute psychosis Chief Complaint [place] Slip. Brief Psy chotic Disorder ruq pain/swelling of stomach Reason for Visit Acute psychosis Constipation Hepatitis C Chief Complaint ruq pain/swelling of stomach Hepatitis C Reason for Visit Constipation Hepatitis C Chief Complaint Admit Date ruq pain/swelling of stomach October 132023 9:26am Hepatitis C November 26, 2023 1 2:39pm BH November 27, 2023 1 2:00pm ETOH December 30, 2023 3:00pm Reason for Visit Admit Date Constipation November 07, 2023 9:26am Hepatitis C November 07, 2023 9:26am Chief Complaint Admit Date Hallucinations April 28, 2024 11: 35am Additional Source Comments INFORMATION SOURCE (unrecogn ized section and content) DATE CREATED AUTHOR 07/04/2018 [facility] DATE CREATED AUTHOR AUTHOR'S ORGANIZ ATION 11/14/2018 [facility] DATE CREATED AUTHOR AUTHOR'S ORGANIZ ATION 03/12/2020 [facility] DATE CREATED AUTHOR AUTHOR'S ORGANIZ ATION 06/04/2020 [employer] DATE CREATED AUTHOR AUTHOR'S ORGANIZ ATION 09/28/2020 [facility] DATE CREATED AUTHOR AUTHOR'S ORGANIZ ATION 10/12/2020 [facility] DATE CREATED AUTHOR AUTHOR'S ORGANIZ ATION 10/19/2020 [facility] DATE CREATED AUTHOR AUTHOR'S ORGANIZ ATION 02/09/2021 [facility] DATE CREATED AUTHOR AUTHOR'S ORGANIZ ATION 05/04/2021 [facility] DATE CREATED AUTHOR AUTHOR'S ORGANIZ ATION 05/04/2021 [facility] DATE CREATED AUTHOR AUTHOR'S ORGANIZ ATION 06/02/2021 [facility] DATE CREATED AUTHOR AUTHOR'S ORGANIZ ATION 07/31/2021 [facility] DATE CREATED AUTHOR AUTHOR'S ORGANIZ ATION 03/13/2022 [facility] DATE CREATED AUTHOR AUTHOR'S ORGANIZ ATION 03/15/2022 [facility] DATE CREATED AUTHOR AUTHOR'S ORGANIZ ATION 01/17/2023 [facility] DATE CREATED AUTHOR AUTHOR'S ORGANIZ ATION 07/02/2023 [facility] DATE CREATED AUTHOR AUTHOR'S ORGANIZ ATION 07/05/2023 [facility] DATE CREATED AUTHOR AUTHOR'S ORGANIZ ATION 07/07/2023 [facility] DATE CREATED AUTHOR AUTHOR'S ORGANIZ ATION 07/15/2023 [facility] DATE CREATED AUTHOR AUTHOR'S ORGANIZ ATION 07/18/2023 [facility] DATE CREATED AUTHOR AUTHOR'S ORGANIZ ATION 08/07/2023 [facility] DATE CREATED AUTHOR AUTHOR'S ORGANIZ ATION 08/08/2023 [facility] DATE CREATED AUTHOR AUTHOR'S ORGANIZ ATION 09/01/2023 [facility] DATE CREATED AUTHOR AUTHOR'S ORGANIZ ATION 09/02/2023 [facility] DATE CREATED AUTHOR AUTHOR'S ORGANIZ ATION 09/05/2023 [facility] DATE CREATED AUTHOR AUTHOR'S ORGANIZ ATION 09/13/2023 [facility] DATE CREATED AUTHOR AUTHOR'S ORGANIZ ATION 10/02/2023 [facility] DATE CREATED AUTHOR AUTHOR'S ORGANIZ ATION 11/29/2023 [facility] DATE CREATED AUTHOR AUTHOR'S ORGANIZ ATION 11/30/2023 [facility] DATE CREATED AUTHOR AUTHOR'S ORGANIZ ATION 12/07/2023 [facility] DATE CREATED AUTHOR AUTHOR'S ORGANIZ ATION 01/12/2024 [facility] DATE CREATED AUTHOR AUTHOR'S ORGANIZ ATION 01/13/2024 [facility] DATE CREATED AUTHOR AUTHOR'S ORGANIZ ATION 01/16/2024 [facility] DATE CREATED AUTHOR AUTHOR'S ORGANIZ ATION 03/07/2024 [facility] DATE CREATED AUTHOR AUTHOR'S ORGANIZ ATION 04/30/2024 [facility] Reason for Visit [...] Referre d By Contact Referred To Contact [facility] [address] [place] [address] [facility] Reason Comments Anxiety Pt states that she's been drinking continuously for the past 3 weeks, states anxiety/panic attacks today; Has a hx of IV drug abuse as well; Reason Comments Withdrawal Alcohol Reason Comments Hypertension at [facility]. blood pressure checked today and was 146/100 Reason Comments Addiction Problem Reason Comments Panic Attack Reason Comments Psychiatric Evaluation Pt is from [facility] and is going through alcohol withdrawal, [...] 0430 0428 (Given - Provid er: Macrina Shipman RN) LORazepam (ATIVAN) injection 1 mg (COMPLETED) 1 mg, IntraVENous, ONCE, 1 dose, On Sat05/02/21 at 2315 2317 (Given - Provider: Macrina Shipman RN) LORazepam (ATIVAN) injection 1 mg (COMPLETED) 1 mg, IntraVENous, ONCE, 1 dose, On Sat05/02/21 at 2345 2343 (Given - Provider: Macrina Shipman RN) PRN Medication Order 05/01/2021 05/02/2021 05/03/2021 iopamidol (ISOVUE-370) 76 % injection 75 mL (COMPLETED) 75 mL, IntraVENous, IMG ONCE PRN, 1 dose, Starting on Sat05/03/21 at 0312, Until Discontinued, Other 0336 (Given - Provid er: Michelle Godoy - Comment: [id number] 10/04) No Frequency Medication Order 05/01/2021 05/02/2021 05/03/2021 diphenhydrAMINE (BENADRYL) 25 MG tablet 1 dose, Starting on Sat05/03/21 at 0128, Until Sat05/03/21 at 1329, Macrina Shipman: cabinet override, Macrina Shipman: cabinet override 0130 (Due) Scheduled Medication Order [...] Calhoun RN)1425 (Given - Provider: Franchesca Calhoun RN)2122 (Given - Provider: Moni Montoya RN) haloperidol lactate (Haldol) injection 5 mg (COMPLETED) 5 mg, intramuscular, Once, On 12/15/22 at 0745, For 1 dose, Patients receiving IV haloperidol should be on continuous cardiac monitoring. 0758 (Given - Provider: Franchesca Calhoun RN) LORazepam (Ativan) tablet 1 mg (COMPLETED) 1 mg, oral, Once, On 12/16/22 at 2025, For 1 dose 2042 (Given - Provid er: Moni Montoya RN) LORazepam (Ativan) tablet 2 mg (COMPLETED) 2 mg, oral, Once, On 12/15/22 at 1525, For 1 dose 1545 (Given - Provider: Franchesca Calhoun RN) methadone (Dolophine) tablet 50 mg 50 mg, oral, Daily, First dose on 12/16/22 at 0900, RN must sign for and pickling operator medication at Pharmacy window. Please call before [...] 2 mg/min. 2208 (See Alternative - Provider: Jacbo Ruano RN) 0040 (See Alternative - Provider: [...] Ruano RN) 0040 (Given - Provider: Jacob Ruano, LILY - Comment: CIWA 21)0411 (Given - Provider: [...] Team Status: Active Member Role Status Dates Birgit Aiken MD Primary Care Provider Active Team Status: Inactive Member Role Status Dates Amanda Bernard APRN DRUG 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 OFFICER-C Primary Care Provider Active Start: November 07, 2023 End: November 07, 2023 Kanchan Sanchez MD Attending Provider Active Start: November 07, 2023 End: November 07, 2023 Team Status: Inactive Member Role Status Dates Kanchan Sanchez MD Attending Provider Active Start: November 26, 2023 End: November 26, 2023 Birgit Aiken MD Primary Care Provider Active Start: November 26, 2023 End: November 26, 2023 Team Status: Active Member Role Status Dates Diamante [place] Primary Care Provider Active Star t: November 27, 2023 Gautam Burrows MD Attending Provider Active Start: November 27, 2023 Team Status: Inactive Member Role Status Dates Birgit Aiken MD Primary Care Provider Active Start: December 30, 2023 End: December 30, 2023 Manfred Florez APRN Emergency Provider Active Start: December 30, 2023 End: December 30, 2023 Team Status: Active Member Role Status Dates Amanda Bernard APRN DRUG 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 OFFICER-C Primary Care Provider Active Start: September 11, 2023 End: September 11, 2023 Robe Flores DO Attending Provider Active Sta rt: September 11, 2023 End: September 11, 2023 Shaikh Jenn MD Referring Provider Active Sta rt: September 11, 2023 End: September 11, 2023 Team Status: Active Member Role Status Dates Amanda Bernard APRN DRUG 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 OFFICER-C Primary Care Provider Active Team Status: Inactive Member Role Status Dates Amanda Bernard APRN DRUG 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 OFFICER-C Primary Care Provider Active Start: August 06, 2023 End: August 10, 2023 Piyush Pace MD Admit Provider, Atte nding Provider Active Start: August 06, 2023 End: August 10, 2023 Team Status: Active Member Role Status Dates Diamante [place] Primary Care Provider Active Star t: July 05, 2023 Gautam Burrows MD Attending Provider Active Start: July 05, 2023 Team Status: Active Member Role Status Dates Amanda Bernard APRN DRUG 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 OFFICER-C Primary Care Provider Active Start: August 07, [...] Status: Inactive Member Role Status Dates Amanda Bernard APRN DRUG 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 OFFICER-C Primary Care Provider Active Start: January 19, 2023 End: January 19, 2023 Pavel Elizondo DO Emergency Provider Active Start: January 19, 2023 End: January 19, 2023 Team Status: Inactive Member Role Status Dates Amanda Bernard APRN DRUG 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 OFFICER-C Primary Care Provider Active Start: January 25, 2023 End: January 25, 2023 Bridger Castro Jr, MD Emergency Provider Active Start: January 25, 2023 End: January 25, 2023 Team Status: Inactive Member Role Status Dates Amanda Bernard APRN DRUG 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 OFFICER-C Primary Care Provider Active Start: March 04, 2023 End: March 04, 2023 Azra Moya DO Emergency Provider Active St art: March 04, 2023 End: March 04, 2023 Team Status: Inactive Member Role Status Dates Amanda Bernard APRN DRUG 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 OFFICER-C Primary Care Provider Active Start: March 12, 2023 End: March 12, 2023 Azra Moya DO Emergency Provider Active St art: March 12, 2023 End: March 12, 2023 Team Status: Inactive Member Role Status Dates Amanda Bernard APRN DRUG 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 OFFICER-C Primary Care Provider Active Start: March 17, 2023 End: March 17, 2023 Delvis Benz DO Emergency Provider Active Sta rt: March 17, 2023 End: March 17, 2023 Team Status: Inactive Member Role Status Dates Amanda Bernard APRN DRUG 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 OFFICER-C Primary Care Provider Active Start: April 06, 2023 End: April 06, 2023 Declan Marina MD Emergency Provider Active St art: April 06, 2023 End: April 06, 2023 Team Status: Active Member Role Status Dates Diamante [place] Primary Care Provider Active Star t: 2023 Gautam Burrows MD Attending Provider Active Start: 2023 Team Status: Inactive Member Role Status Dates Amanda Bernard APRN DRUG 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 OFFICER-C Primary Care Provider Active Azra Moya DO Emergency Provider Active Team Status: Inactive Member Role Status Dates Amanda Bernard APRN DRUG 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 OFFICER-C Primary Care Provider Active Declan Marina MD Emergency Provider Active Team Status: Inactive Member Role Status Dates Amanda Beranrd APRN DRUG 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 OFFICER-C Primary Care Provider Active Ari M More , DO Emergency Provider Active Team Status: Inactive Member Role Status Dates Ari Aguero , DO Emergency Provider Active Amanda Kapoorjulio , OCCUPATIONAL THERAPY SPECIALIST DRUG 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 OFFICER-C Primary Care Provider Active Team Status: Inactive Member Role Status Dates Amanda Kapoorjulio , OCCUPATIONAL THERAPY SPECIALIST DRUG 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 OFFICER-C Primary Care Provider Active Eric Lara MD Emergency Provider Active Team Status: Inactive Member Role Status Dates Amanda Bernard , OCCUPATIONAL THERAPY SPECIALIST DRUG 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 OFFICER-C Primary Care Provider Active Braeden Schmitt PA-C Emergency Provider Active Team Status: Inactive Member Role Status Dates Amanda Bernard , OCCUPATIONAL THERAPY SPECIALIST DRUG 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 OFFICER-C Primary Care Provider Active Ari Aguero DO Emergency Provider Active Joann Bojorquez DO RES Active Team Status: Inactive Member Role Status Dates Amanda Bernard , OCCUPATIONAL THERAPY SPECIALIST DRUG 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 OFFICER-C Primary Care Provider Active Pavel Elizondo DO Emergency Provider Active Team Status: Inactive Member Role Status Dates Amanda Bernard , OCCUPATIONAL THERAPY SPECIALIST DRUG 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 OFFICER-C Primary Care Provider Active Kanchan Sanchez MD Attending Provider Active Team Status: Active Member Role Status Dates Amanda Bernard OCCUPATIONAL THERAPY SPECIALIST DRUG 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 OFFICER-C Primary Care Provider Active Ari Aguero DO Emergency Provider Active Nguyễn Burrows MD Admit Provider, Attending Pr ovider Active Team Status: Inactive Member Role Status Dates Amanda Bernard , OCCUPATIONAL THERAPY SPECIALIST DRUG 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 OFFICER-C Primary Care Provider Active Ari Aguero DO Emergency Provider Active Nguyễn Burrows MD Admit Provider, Attending Pr ovider Active Etl Manager Relationship Specialty Start Date End Date Nini Guzman, OCCUPATIONAL THERAPY SPECIALIST-ORACLE [employer] BUSINESS DEVELOPER [address] [place] [address] PCP - General 01/14/19 Team Status: Active Member Role Status Dates Diamante [place] Primary Care Provider Active Team Status: Inactive Member Role Status Dates Diamante [place] Primary Care Provider Active Braeden Schmitt PA-C Emergency Provider Active Team Status: Inactive Member Role Status Dates Amanda Kapoorjulio , OCCUPATIONAL THERAPY SPECIALIST DRUG 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 OFFICER-C Primary Care Provider Active Bridger Castro Jr, MD Emergency Provider Active Team Status: Inactive Member Role Status Dates Ari Aguero DO Emergency Provider Active Sta rt: December 11, 2022 End: December 11, 2022 Amanda Bernard , OCCUPATIONAL THERAPY SPECIALIST DRUG 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 OFFICER-C Primary Care Provider Active Start: December 11, 2022 End: December 11, 2022 Team Status: Inactive Member Role Status Dates Amanda Bernard APRN DRUG 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 OFFICER-C Primary Care Provider Active Start: April 08, 2023 End: April 08, 2023 Eric Lara MD Emergency Provider Active Star t: April 08, 2023 End: April 08, 2023 Team Status: Inactive Member Role Status Dates Amanda Bernard APRN DRUG 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 OFFICER-C Primary Care Provider Active Start: April 25, 2023 End: April 25, 2023 Diane Paez DO Emergency Provider Active Start: April 25, 2023 End: April 25, 2023 Etl Manager Relationship Specialty Start Date End Date Unallocated, [place] Provider, [address] [place] [id number] PCP - General 11/06/22 Team Status: Active Member Role Status Dates PHYSICIAN NO FAMILY Primary Care Provider Active Team Status: Inactive Member Role Status Dates Ari Aguero DO Emergency Provider Active Sta rt: April 28, 2024 End: April 28, 2024 PHYSICIAN NO FAMILY Primary Care Provider Active Start: April 28, 2024 End: April 28, 2024 Goals (unrecognized section and content) Goals may [...] BE BASED ON THE PRIMARY CLINICAL RECORDS. [facility] [employer] [facility]. provides no warranty or guarantee of the accuracy or completeness of information in this document.
[2024-05-02 09:57] VITALS: BP 140/92
--- NOTE | 2024-05-02 10:01 | ECG_ITS ---
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 Measurements Intervals [place] Rate: 48 P: 74 VT: 160 QRS: 92 QRSD: 88 T: 74 QT: 478 QTc: 445 Interpretive Statements Sinus bradycardia with sinus arrhythmia 7102 Moderate right axis deviation Nonspecific T wave changes abnormal ECG Compared to ECG 09/10/2023 15:48:31 T-wave amplitude has increased Electronically Signed On 05-03-2024 7:43:09 EDT by BOOKER BURKS M.D.
[2024-05-02] MEDS: ONDANSETRON 4 MG RAPDIS TABLET SL (10:10)
[2024-05-02 10:36] LABS: Basophils Absolute Auto 0.1 10^3/uL (0.0-0.1); Basophils Percent Auto 0.9 % (0.2-2.0); Eosinophils Absolute Auto 0.1 10^3/uL (0.0-0.7); Eosinophils Percent Auto 1.3 % (0.9-7.0); Hematocrit 38.2 % (36.0-48.0); Hemoglobin 13.9 g/dL (12.0-16.0); Immature Granulocytes Abs Auto 0.22 10^3/uL (0.00-0.03); Immature Granulocytes Pct Auto 2.9 % (0.0-0.5); Lymphocytes Absolute Auto 1.7 10^3/uL (1.2-3.8); Lymphocytes Percent Auto 22.1 % (20.5-60.0); Mean Corpuscular HGB Conc 36.4 g/dL (29.9-35.2); Mean Corpuscular Hemoglobin 32.8 pg (26.7-34.0); Mean Corpuscular Volume 90.1 fL (81.0-99.0); Mean Platelet Volume 11.9 fL (9.5-13.5); Monocytes Absolute Auto 0.5 10^3/uL (0.3-0.8); Monocytes Percent Auto 6.2 % (1.7-12.0); Neutrophils Percent Auto 66.6 % (43.0-75.0); Platelet Count 68 10^3/uL (150-450); Red Blood Count 4.24 10^6/uL (4.20-5.40); Red Cell Distribution Width 12.7 % (11.0-15.0); White Blood Count 7.6 10^3/uL (4.0-11.0)
[2024-05-02 10:47] LABS: Amphetamine Screen Urine NEGATIVE (NEGATIVE); Cannabinoid Screen Urine NEGATIVE (NEGATIVE); Cocaine Screen Urine NEGATIVE (NEGATIVE); Methamphetamines Screen Urine NEGATIVE (NEGATIVE); Opiate Screen Urine NEGATIVE (NEGATIVE); Phencyclidine Screen Urine NEGATIVE (NEGATIVE)
[2024-05-02 10:48] LABS: Barbiturates Screen Urine NEGATIVE (NEGATIVE); Benzodiazepines Screen Urine NEGATIVE (NEGATIVE); Buprenorphine Screen Urine POSITIVE (NEGATIVE); Methadone Screen Urine POSITIVE (NEGATIVE); Oxycodone Screen Urine NEGATIVE (NEGATIVE); Tricyclic Antidepressant Urine NEGATIVE (NEGATIVE)
[2024-05-02 10:48] LABS: Alanine Aminotransferase 136 U/L (14-59); Albumin Globulin Ratio 0.7; Albumin Level 3.4 g/dL (3.4-5.0); Alkaline Phosphatase 161 U/L (46-116); Anion Gap 12.2; Aspartate Amino Transferase 265 U/L (15-37); BUN Creatinine Ratio 8.8; Bilirubin Total 2.1 mg/dL (0.2-1.0); Calcium 9.2 mg/dL (8.5-10.1); Carbon Dioxide 26.3 mmol/L (21.0-32.0); Chloride 97 mmol/L (98-107); Estimated GFR (African America >60 (>=60 mL/min/1.73m^2); Estimated GFR (Non-African Ame >60 (>=60 mL/min/1.73m^2); Globulin 4.7 g/dL; Glucose 107 mg/dL (74-106); Magnesium 1.5 mg/dL (1.8-2.4); Potassium 3.5 mmol/L (3.5-5.1); Sodium 132 mmol/L (136-145); Total Protein 8.1 g/dL (6.4-8.2)
[2024-05-02 10:50] LABS: Troponin I High Sensitivity 8.3 pg/mL (4.0-51.3)
[2024-05-02 10:51] LABS: Ethanol <3 mg/dL
[2024-05-02 10:53] LABS: HCG Qualitative Urine* NEGATIVE (NEGATIVE); Internal Control Within Normal Limits
--- NOTE | 2024-05-02 11:27 | ED.ALCOHOL1 ---
HPI - Alcohol General Chief Complaint: Chest Pain Stated Complaint: HALLUCINATIONS, CHEST PAIN, ALCOHOL WITHDRAWAL Time Seen by Provider: 05/02/24 09:53 Source: patient Mode of arrival: walk-in History of Present Illness HPI narrative: The patient is a 34-year-old female with history of opiate abuse coming to the ER requesting help with alcohol abuse, the patient drinks usually 1 bottle of vodka daily her last drink today was at 6 AM which is almost 5 hours ago. she is coming to us after she noticed that she has been having some hallucination because she thought that it was raining outside and it was not, they have also some nausea and some cramping. The patient had detox almost few months ago and apparently she does not recall any significant associated symptoms Related Data Home Medications ?Medication ?Instructions ?Recorded ?Confirmed clonidine HCl 0.1 mg tablet 0.1 mg PO Q12H 03/05/23 05/02/24 gabapentin 800 mg tablet 800 mg PO TID 03/05/23 05/02/24 buprenorphine 4 mg-naloxone 1 mg film 05/02/24 sublingual film buspirone 15 mg tablet mg 05/02/24 cariprazine 1.5 mg capsule mg 05/02/24 (Vraylar) Previous Rx's ?Medication ?Instructions ?Recorded magnesium oxide 500 mg capsule 500 mg PO DAILY #3 caps 05/02/24 Allergies Allergy/AdvReac Type Severity Reaction Status Date / Time codeine Allergy Severe Hives Verified 09/10/23 15:42 quetiapine (From Seroquel) Allergy Severe Swelling Verified 05/02/24 09:53 of Lip/Tongue/Throat hydroxyzine (From Vistaril) AdvReac Severe Hives Verified 09/10/23 15:42 Review of Systems ROS Status of ROS 10 or more systems reviewed and unremarkable except as noted in history and below [facility] Medical History (Updated 05/02/24 @ 11:37 by Lizette Padilla MD) ADHD ?F90.9 - Attention-deficit hyperactivity disorder, unspecified type (ICD-10) DILIA (generalized anxiety disorder) ?F41.1 - Generalized anxiety disorder (ICD-10) HTN (hypertension) ?I10 - Essential (primary) hypertension (ICD-10) Appendicitis ?K37 - Unspecified appendicitis (ICD-10) Methamphetamine abuse ?F15.10 - Other stimulant abuse, uncomplicated (ICD-10) Surgical History (Updated 09/10/23 @ 21:54 by Ana Jorge) Hx of appendectomy ?Z90.49 - Acquired absence of other specified parts of digestive tract (ICD-10) Family History (Updated 09/10/23 @ 21:55 by Ana Jorge) Mother Family history of COPD (chronic obstructive pulmonary disease) Family history of stroke Father Family history of hypertension Social History (Updated 09/10/23 @ 21:57 by Ana Jorge) Within the past year, how often did you have a drink containing alcohol: 4 or more times a week Within the past year, how many standard drinks containing alcohol did you have on a typical day: 10 or more Within the past year, how often did you have six or more drinks on one occasion: daily or almost daily Total score: 12 Score interpretation: A score of 3 or more indicates drinking is likely to affect patient's safety. Smoking status: Current every day smoker Non-prescribed substance use: declined to answer Highest level of school completed/degree received: high school graduate Are you now , , , , never or living with a partner: don't know In a typical week, how many times do you talk on the telephone with family, friends, or neighbors: 3 or more times per week How often do you get together with friends or relatives: once per week Do you belong to any clubs or organizations such as samaritan groups unions, fraternal or athletic groups, or school groups: no Little interest or pleasure in doing things: not at all Feeling down, depressed, or hopeless: not at all Do you think of yourself as: straight/heterosexual Gender Identity: female Exam Narrative Exam Narrative: Nurses notes and vital signs reviewed and patient is not hypoxic. General: Well-appearing and in no apparent distress. Skin: Warm, dry, no pallor noted. No rash. Head: Normocephalic, atraumatic. Neck: Supple, non-tender. Cardiovascular: Regular Rate and Rhythm without murmur, gallop or rub. Respiratory: No accessory muscle use or respiratory distress. Lungs are clear to auscultation, no wheezing, rales or rhonchi Chest Wall: no tenderness Back: No midline thoracic or lumbar vertebral tenderness. No CVA tenderness Musculoskeletal: normal ROM, no calf or popliteal tenderness, no lower extremity edema/swelling GI: Abdomen is soft, non-distended. Normal bowel sounds. No masses appreciated. No tenderness to palpation. No rebound, guarding, or rigidity noted. Neurological: A&O x4. No cranial nerve dysfunction observed. Moves all extremities. Sensation intact. Psychiatric: Cooperative and interactive. Normal mood and affect. Constitutional Vital Signs, click to edit/add: Last Vital Signs Temp 98.7 F 05/02/24 09:47 Pulse 81 05/02/24 09:47 Resp 20 05/02/24 09:47 BP 150/90 H 05/02/24 11:50 Pulse Ox 99 05/02/24 09:47 Course Vital Signs Vital signs: Vital Signs Temperature 98.7 F 05/02/24 09:47 Pulse Rate 81 05/02/24 09:47 Respiratory Rate 20 05/02/24 09:47 Blood Pressure 188/109 H 05/02/24 09:47 Pulse Oximetry 99 05/02/24 09:47 Temperature 98.7 F 05/02/24 09:47 Pulse Rate 81 05/02/24 09:47 Respiratory Rate 20 05/02/24 09:47 Blood Pressure 150/90 H 05/02/24 11:50 Pulse Oximetry 99 05/02/24 09:47 MDM - Alcohol MDM Narrative Medical decision making narrative: The patient CIWA score upon arrival is 7 Her EKG showing sinus rhythm with a heart rate of [address] elevation or depression CBC and chemistry showed that the patient have some elevated LFTs which mostly secondary to alcohol abuse The patient chemistry shows some elevated LFTs and the magnesium was 1.4 which was replaced with p.o. magnesium here and the patient was given prescription to go with magnesium p.o. as well Patient test was negative And she was feeling much better after she was treated in the ER with Zofran Troponin was negative After calling the detox facility around this including [facility] the patient will have to drive over there to get evaluated for inpatient but the patient right now with medical clearance she was provided with a note that she is medically clear Patient to come back to the ER in case of any new symptoms or concerns Lab Data Labs: Lab Results 05/02/24 05/02/24 Range/Units 09:56 10:25 WBC 7.6 (4.0-11.0) 10^3/uL RBC 4.24 (4.20-5.40) 10^6/uL Hgb 13.9 (12.0-16.0) g/dL Hct 38.2 (36.0-48.0) % MCV 90.1 (81.0-99.0) fL MCH 32.8 (26.7-34.0) pg MCHC 36.4 H (29.9-35.2) g/dL RDW 12.7 (11.0-15.0) % Plt Count 68 L (150-450) 10^3/uL MPV 11.9 (9.5-13.5) fL Neut % (Auto) 66.6 (43.0-75.0) % Lymph % (Auto) 22.1 (20.5-60.0) % [facility] % (Auto) 6.2 (1.7-12.0) % Eos % (Auto) 1.3 (0.9-7.0) % Baso % (Auto) 0.9 (0.2-2.0) % Neut # (Auto) 5.0 (1.4-6.5) 10^3/uL Lymph # (Auto) 1.7 (1.2-3.8) 10^3/uL [facility] # (Auto) 0.5 (0.3-0.8) 10^3/uL Eos # (Auto) 0.1 (0.0-0.7) 10^3/uL Baso # (Auto) 0.1 (0.0-0.1) 10^3/uL Abs Immat Gran (auto) 0.22 H (0.00-0.03) 10^3/uL Imm/Tot Granulo (auto) 2.9 H (0.0-0.5) % Sodium 132 L (136-145) mmol/L Potassium 3.5 (3.5-5.1) mmol/L Chloride 97 L (98-107) mmol/L Carbon Dioxide 26.3 (21.0-32.0) mmol/L Anion Gap 12.2 BUN 6.0 L (7.0-18.0) mg/dL Creatinine 0.68 (0.55-1.02) mg/dL Est GFR ( Amer) >60 (>=60 mL/min/1.73m^2) Est GFR (Non-Af Amer) >60 (>=60 mL/min/1.73m^2) BUN/Creatinine Ratio 8.8 Glucose 107 H (74-106) mg/dL Calcium 9.2 (8.5-10.1) mg/dL Magnesium 1.5 L (1.8-2.4) mg/dL Total Bilirubin 2.1 H (0.2-1.0) mg/dL AST 265 H (15-37) U/L ALT 136 H (14-59) U/L Alkaline Phosphatase 161 H (46-116) U/L Troponin I High Sens 8.3 (4.0-51.3) pg/mL Total Protein 8.1 (6.4-8.2) g/dL Albumin 3.4 (3.4-5.0) g/dL Globulin 4.7 g/dL Albumin/Globulin Ratio 0.7 Serum HCG, Qual Cancelled Urine HCG, Qual Negative (NEGATIVE) Urine Opiates Screen Negative (NEGATIVE) Ur Buprenorphine Scrn Positive A (NEGATIVE) Ur Oxycodone Screen Negative (NEGATIVE) Urine Methadone Screen Positive A (NEGATIVE) Ur Barbiturates Screen Negative (NEGATIVE) U Tricyclic Antidepress Negative (NEGATIVE) Ur Phencyclidine Scrn Negative (NEGATIVE) Ur Amphetamines Screen Negative (NEGATIVE) U Methamphetamines Scrn Negative (NEGATIVE) U Benzodiazepines Scrn Negative (NEGATIVE) Urine Cocaine Screen Negative (NEGATIVE) U Cannabinoids Screen Negative (NEGATIVE) Ethanol Quant <3 mg/dL Discharge Plan Discharge Chief Complaint: Chest Pain Clinical Impression: Alcohol use, Alcohol withdrawal, Hypomagnesemia Patient Disposition: Home, Self-Care Time of Disposition Decision: 11:36 Condition: Good Prescriptions / Home Meds: New magnesium oxide 500 mg capsule 500 mg PO DAILY Qty: 3 0RF No Action clonidine HCl 0.1 mg tablet 0.1 mg PO Q12H gabapentin 800 mg tablet 800 mg PO TID buspirone 15 mg tablet buprenorphine-naloxone 4-1 mg film Vraylar 1.5 mg capsule Print Language: Citizen Of [place] Instructions: Abuse of Alcohol (DC), Alcohol Withdrawal (DC) Additional Instructions: Patient is medically clear for detox treatment Referrals: IRAM BAKER [Primary Care Provider] - 1 week Discharge Date/Time: 05/02/24 12:02
[2024-05-02] MEDS: MAGNESIUM OXIDE 400 MG TABLET PO (11:40)
[2024-05-02 11:50] VITALS: BP 150/90
[2024-05-02] MEDS: CLONIDINE HCL 0.1 MG TABLET PO (11:57)
== END 2024-05-02 12:02 | disposition home or self-care (01) ==
PROVIDERS: Emergency Provider Emergency Medicine; PCP Family Medicine
DX: F10.939 Alcohol use, unspecified with withdrawal, unspecified (principal); E83.42 Hypomagnesemia; Y90.0 Blood alcohol level of less than 20 mg/100 ml; F17.200 Nicotine dependence, unspecified, uncomplicated
CPT/HCPCS: 36415; 80053; 80307; 80320; 83735; 84484; 84703; 85025; 93005; 99284; Q0162